=== PATIENT | male | born 1945 | race Caucasian/White ===

== ENCOUNTER 2020-07-30 10:00 | Outpatient (RCR) | payer MEDICARE, OTHER, SELFPAY | END 2020-07-30 13:28 | disposition other institution (70) | LOC: HO.OT 10:00 | PROVIDERS: PCP Internal Medicine; Visit Provider Internal Medicine | DX: I89.0 Lymphedema, not elsewhere classified (principal) | CPT/HCPCS: 97110; 97140; 97167 ==

== ENCOUNTER 2020-07-31 10:00 | Outpatient (RCR) | payer MEDICARE, OTHER, SELFPAY | END 2020-08-22 09:44 | disposition other institution (70) | LOC: HO.PT 10:00 | PROVIDERS: PCP Internal Medicine; Visit Provider Internal Medicine | DX: R53.1 Weakness (principal); M79.606 Pain in leg, unspecified | CPT/HCPCS: 97110; 97162; 97530 ==

== ENCOUNTER 2021-06-08 06:53 | Inpatient (IN) | payer MEDICARE, OTHER, SELFPAY ==
[2021-06-08] VITALS (13 sets, daily range): BP systolic 121–188; BP diastolic 66–99; PULSE 76–148; RESP 18–28; TEMP 36.9–39.7; O2SAT 91–98; BMI 29.5
--- NOTE | 2021-06-08 | ECG_ITS ---
Test Reason : TACHYCARDIA Blood Pressure : / mmHG Vent. Rate : 152 BPM Atrial Rate : 304 BPM P-R Int : 000 ms QRS Dur : 098 ms QT Int : 316 ms P-R-T Axes : 000 -25 015 degrees QTc Int : 502 ms Supraventricular tachycardia Minimal voltage criteria for LVH, may be normal variant ( John product ) Anteroseptal infarct (cited on or before 08-JUN-2021) Abnormal ECG When compared with ECG of 06/08/21 10;07 Supraventricular tachycardia present Vent. rate has increased BY 51 BPM Referred By: Angela Moura Electronically Signed By:Brad Mims
--- NOTE | ~2021-06-08 | CT_ITS ---
EXAMINATION: CT ANGIOGRAM OF THE CHEST WITH AND WITHOUT CONTRAST (CT PULMONARY ANGIOGRAM FOR PE) CLINICAL INFORMATION: Reason for Exam r/o PE pain and fever COMPARISON: Previous chest CTA September 2016 and chest x-ray most recent from earlier the same day TECHNIQUE: Prior to contrast administration, noncontrast localization images were obtained. Subsequently, multidetector volumetric imaging was performed from the thoracic inlet to below the diaphragms following the administration of 100 mL Omnipaque 350 intravenous contrast. No contrast reaction reported Sagittal, coronal, and MIP oblique sagittal reformatted images were obtained on the CT workstation, uploaded to PACS, and reviewed. This CT examination was performed using dose optimization techniques as appropriate, variously including the following: *Automated exposure control *Adjustment of mA and/or kV according to patient size (this includes techniques or standardized protocols for targeted exams where dose is matched to indication/reason for exam; i.e. extremities or head) *Use of iterative reconstruction technique Total exam dose-length product 620 mGy-cm FINDINGS: QUALITY OF STUDY/CONTRAST BOLUS: Satisfactory. PULMONARY ARTERIES: No central or segmental pulmonary emboli. THORACIC AORTA: The ascending thoracic aorta is dilated measuring 0.5 cm. The aortic arch and descending thoracic aorta are normal in caliber. LUNG: There is airspace disease in the left lower lobe suggestive of pneumonia. There is atelectasis or small pneumonia at the base of the the right lower lobe as well PLEURA: No pleural effusion or pneumothorax. MEDIASTINUM: Normal heart size. No pericardial effusion. There are small mediastinal lymph nodes. No enlarged lymph nodes are seen. No evidence of septal bowing or right heart strain. CHEST WALL/AXILLA: No axillary or internal mammary lymphadenopathy. OSSEOUS STRUCTURES: No acute or suspicious osseous abnormality. Degenerative changes. UPPER ABDOMEN: There are several low-attenuation liver lesions. These are difficult to characterize due to timing of contrast. The largest measures 1 cm high in the liver near the hepatic venous confluence and in the posterior segment of the right lobe of the liver. These appear similar to March 2018 CT scan. There is abnormal contour to the lateral mid to lower left kidney for example coronal reconstructed image 43 worrisome for a mass. There are surgical clips adjacent to the upper pole of the left kidney. There is low-attenuation seen in the most inferior 4 visualized portion of the right kidney difficult to characterize. There is diverticulosis of the colon. No reflux of contrast into the hepatic veins to suggest elevated right heart pressures. CT/CT angio chest PE protocol IMPRESSION: No evidence of pulmonary embolism. Left lower lobe pneumonia and atelectasis or small pneumonia in the right lower lobe as well. Dilated ascending thoracic aorta measuring 4.5 cm. Coronary artery calcification. Question left renal mass. VTE: negative
--- NOTE | ~2021-06-08 | XR_ITS ---
EXAMINATION: XR CHEST CLINICAL INFORMATION: Weakness, SOB. COMPARISON: Chest 11/08/2018 TECHNIQUE: Frontal view of the chest was obtained. FINDINGS: The lungs are well-expanded and clear. The heart size is enlarged. Pulmonary vascularity is normal. No gross bony abnormality seen. XR/XR chest 1V IMPRESSION: Unremarkable chest exam.
--- NOTE | ~2021-06-08 | CT_ITS ---
EXAMINATION: CT ABDOMEN AND PELVIS WITH CONTRAST CLINICAL INFORMATION: Abdominal pain and fever. COMPARISON: CT brain 04/23/2018. TECHNIQUE: Multidetector volumetric images were obtained from the superior aspect of the liver through the pubic symphysis following administration 85 mL of Omnipaque 350 intravenous contrast. Sagittal and coronal reformatted images were obtained on the technologist's workstation. Oral contrast: No This CT examination was performed using dose optimization techniques as appropriate, variously including the following: *Automated exposure control *Adjustment of mA and/or kV according to patient size (this includes techniques or standardized protocols for targeted exams where dose is matched to indication/reason for exam; i.e. extremities or head) *Use of iterative reconstruction technique DLP: 1531 mGy-cm FINDINGS: LUNG BASES: There is patchy opacity in both dependent lower lobes basilar segments likely combination of infiltrate/atelectasis. Heart size enlarged with coronary artery calcifications. No pericardial or pleural effusion seen. LIVER, GALLBLADDER, AND BILIARY TREE: The liver is normal in size, shape, and attenuation. There are multiple hypodense liver lesions suggestive of small cysts. No intrahepatic ductal dilatation seen. The gallbladder is distended with dependent radiopaque gallstones. No wall thickening seen. No pericholecystic fluid collection. PANCREAS: Unremarkable. SPLEEN: Unremarkable. ADRENAL GLANDS: The right adrenal gland is slightly atrophic. The left adrenal gland is normal. KIDNEYS AND URETERS: The kidneys are normal in size, shape, and attenuation. No hydronephrosis, hydroureter, or calculi seen. No perinephric stranding. There are bilateral renal cysts. There is a 1.7 cm hypoechoic dense lesion in the midpole left kidney measuring 27 Hounsfield units likely complex cyst. BLADDER: Unremarkable. GASTROINTESTINAL TRACT: There is scattered diverticuli, fluid and gas seen throughout the colon without any colonic distention. No mural thickening or pericolic fat stranding seen. There is air-fluid levels within multiple small bowel loops without distention. No mural thickening seen. No free air or free fluid. Appendix is normal caliber. ABDOMINAL WALL: There is abdominal wall hernia repair with mesh in in the mid abdomen. LYMPH NODES: Normal. VASCULAR: Bilateral ischemic changes of abdominal aorta without aneurysmal dilatation. PELVIC VISCERA: The prostate gland is moderately enlarged extending the base of bladder. OSSEOUS STRUCTURES: There are degenerative disc changes with vacuum disc phenomena L5-S1 and L1-L2 disc levels. No aggressive lytic or sclerotic process seen. CT/CT abdomen pelvis w con IMPRESSION: No acute intra-abdominal process seen. Cholelithiasis without wall thickening. Colonic diverticulosis without diverticulitis. Nonspecific small bowel air-fluid levels without distention in midabdomen. There is an midabdomen abdominal wall hernia repair with mesh in place. Moderate prostate enlargement extending to the base of the bladder. Bilateral renal cysts with a complex cyst midpole left kidney. Bilateral basilar atelectasis and/or infiltrate. Fleischner guidelines were followed.
--- NOTE | 2021-06-08 07:05 | ED_ITS ---
HPI - Nausea/Vomiting/Diarrhea General Chief complaint: Nausea/Vomiting/Diarrhea Stated complaint: DIARRHEA Time Seen by Provider: 06/08/21 07:02 Source: patient and EMS Mode of arrival: EMS Limitations: no limitations History of Present Illness HPI Narrative: Patient comes emergency room complaining of 3 days of profuse watery diarrhea. Patient states that he has had multiple ?accidents? where he cannot reach the bathroom. Patient denies abdominal pain, no nausea or vomiting. Patient has been trying to keep up with fluids, but states he is having more diarrhea and is unable to keep up with fluids. Related Data Allergies Allergy/AdvReac Type Severity Reaction Status Date / Time No Known Allergies Allergy Unverified 01/16/20 14:38 [No Known Allergies*] Review of Systems Review of Systems: Constitutional : No Weight loss, No Fever, No Chills, No Night Sweats, No Fatigue, No Malaise ENT/Mouth : No Hearing loss, No Ear Pain, No Nasal Congestion, No Sinus Pain, No Hoarseness, No sore throat, No Rhinorrhea, No Swallowing Difficulty Eyes: No Eye Pain, No Swelling, No Redness, No Foreign Body, No Discharge, No Vision Changes Cardiovascular : No Chest Pain, No SOB, No Dyspnea on Exertion, No Orthopnea, No Edema, No Palpitations Respiratory : No Cough, No Sputum, No Wheezing, No Smoke Exposure, No Dyspnea Gastrointestinal : No Nausea, No Vomiting, complaining profuse watery Diarrhea, No Constipation, No abdominal Pain, No Hematochezia, No Melena Genitourinary : no irregular bleeding, No Dysuria, No Urinary Frequency, No Hematuria, No Urinary Incontinence, No Urgency, No Flank Pain, No Urinary Flow Changes, No Hesitancy Musculoskeletal : No joint pain, No Myalgias, No Joint Swelling Skin : No Skin Lesions, No rash Neuro : No Weakness, No Numbness, No Paresthesias, No Loss of Consciousness, No Dizziness, No Headache Psych : No Anxiety/Panic, No Depression, No SI/HI/AH/VH, No Social Issues, Heme/Lymph: No Bruising, No Bleeding,No Lymphadenopathy Endocrine : No Polyuria, No Polydipsia, No Temperature Intolerance PMFSH Past Medical History Medical History (Updated 06/08/21 @ 15:34 by Angela Moura MD) Anxiety Depression Diverticulitis Hypertension Renal cell carcinoma Surgical History (Updated 06/08/21 @ 07:09 by Angela Moura MD) History of colectomy S/P femoral-femoral bypass surgery Social History Social History Alcohol intake: never Patient Tobacco Use Status: Never used Tobacco Use of substances other than those prescribed or required for medical reasons: No Advance Directives: Yes Advance Directives Information Provided: No Advance Directives on File: No Physical Exam Vital Signs: Vital Signs: Last Vital Signs Temp 100.9 F H 06/08/21 12:51 Pulse 88 06/08/21 13:54 Resp 20 06/08/21 13:54 BP 136/71 06/08/21 13:54 Pulse Ox 98 06/08/21 13:54 BMI result Body Mass Index 29.5 Course Course Course Narrative: Patient's lactic acid is 2.4. At this time, the elevated lactic acid is likely secondary to dehydration rather than sepsis. This time, sepsis is not suspected. 11:30 patient has a rectal temperature of 102.4 degrees. Time, urinalysis is pending, CT scan is pending, x-ray report pending. No clear source of infection identified. Until now, seems that the patient likely has viral gastroenteritis. Patient's heart rate went up to 180. Patient has history of atrial flutter. Patient states that at home he takes Cardizem and is on Eliquis. Patient was given in the emergency room 1 dose of 10 mg Cardizem, heart rate decreased to 140. Patient getting a 2nd dose of Cardizem Patient's blood pressure remains between 140 and 150 systolic. Heart rate 97. Patient was given 2.5 L IV fluids based on ideal weight of 77 kg. Patient is empirically being treated with Levaquin and Flagyl. still, viral process seems to be the etiology. Chest x-ray is unremarkable, urine pending, CT scan pending (11:48) CTA negative for PE. CT scan of the chest shows possible bilateral infiltrates. However, patient has no respiratory symptoms. COVID negative. Etiology likely viral gastroenteritis. Patient continues having copious diarrhea At this time, 15:33, patient's blood pressure 140/66, heart rate 74 MDM - Nausea/Vomiting/Diarrhea Lab Data Result diagrams: 06/08/21 08:20 06/08/21 08:11 Labs: Lab Results 06/08/21 06/08/21 06/08/21 Range/Units 07:38 08:11 08:11 WBC (4.8-10.8) X10*3/uL RBC (4.60-5.80) X10*6/uL Hgb (14.0-18.0) g/dl Hct (42.0-52.0) % MCV (80.0-98.0) fL MCH (27.0-33.0) pg MCHC (31.0-36.0) g/dl RDW (11.0-16.0) % Plt Count (160-400) X10*3/uL MPV Immature Gran % (Auto) (0.0-0.4) % Neut % (Auto) (45-73) % Lymph % (Auto) (20-40) % [place] % (Auto) (2-11) % Eos % (Auto) (0-4) % Baso % (Auto) (0-2) % Lymph # (Auto) (1.2-4.9) X10*3/uL [place] # (Auto) (0.1-1.2) X10*3/uL Eos # (Auto) (0.0-0.4) X10*3/uL Baso # (Auto) (0.0-0.2) X10*3/uL Abs Immat Gran (auto) (0.00-0.03) X10*3/uL Absolute Neuts (auto) (2.0-8.3) x10*3/uL Absolute Nucleated RBC (0.0-0.012) X10*3/uL Nucleated RBC % (auto) (0.0-0.2) /100WBC Smear Tech's Comments D-Dimer High Sensitivty NG/ML Sodium 142 (135-145) mmol/L Potassium 4.4 (3.3-5.1) mmol/L Chloride 110 H (96-108) mmol/L Carbon Dioxide 21 L (22-29) mmol/L Anion Gap 15 (12-20) BUN 23 H (9-16) mg/dL Creatinine 1.32 (0.5-1.4) mg/dL Estim Creat Clear Calc 61.5 Estimated GFR 53 Random Glucose 82 (60-115) mg/dL Lactic Acid (0.5-2.0) mmol/L Lactic Acid F/U @ 2Hr (0.5-2.0) mmol/L Lactic Acid F/U @ 4Hr (0.5-2.0) mmol/L Calcium 8.7 (8.4-10.2) mg/dL Total Bilirubin 0.5 (0.0-1.0) mg/dL Direct Bilirubin 0.2 (0.0-0.5) mg/dL AST 53 H (5-37) U/L ALT 45 H (0-40) U/L Alkaline Phosphatase 100 (39-117) U/L B-Natriuretic Peptide 228 H (<100) pg/mL Total Protein 6.7 (6.5-8.0) g/dL Albumin 3.8 (3.5-5.0) g/dL Lipase 7 L (8-78) U/L Urine Color Urine Appearance Urine pH (5.0-8.0) Ur Specific [place] (1.005-1.025) Urine Protein (NEG-TRACE) MG/DL Urine Glucose (UA) (NEG) MG/DL Urine Ketones (NEG) MG/DL Urine Blood (NEG) Urine Nitrite (NEG) Ur Leukocyte Esterase (NEG) Urine RBC (0) /HPF Urine WBC (0-4) /HPF Ur Squamous Epith Cells /LPF Urine Bacteria /LPF Granular Casts /LPF Urine Mucus /LPF COVID-19 (YUSEF) Negative (Negative) COVID-19 Clin Com See Note 06/08/21 06/08/21 06/08/21 Range/Units 08:20 08:22 10:41 WBC 10.8 (4.8-10.8) X10*3/uL RBC 5.07 (4.60-5.80) X10*6/uL Hgb 15.1 (14.0-18.0) g/dl Hct 47.9 (42.0-52.0) % MCV 94.5 (80.0-98.0) fL MCH 29.8 (27.0-33.0) pg MCHC 31.5 (31.0-36.0) g/dl RDW 17.8 H (11.0-16.0) % Plt Count 220 (160-400) X10*3/uL MPV Not Reportable Immature Gran % (Auto) 0.6 H (0.0-0.4) % Neut % (Auto) 84.7 H (45-73) % Lymph % (Auto) 7.1 L (20-40) % [place] % (Auto) 7.1 (2-11) % Eos % (Auto) 0.3 (0-4) % Baso % (Auto) 0.2 (0-2) % Lymph # (Auto) 0.8 L (1.2-4.9) X10*3/uL [place] # (Auto) 0.8 (0.1-1.2) X10*3/uL Eos # (Auto) 0.0 (0.0-0.4) X10*3/uL Baso # (Auto) 0.0 (0.0-0.2) X10*3/uL Abs Immat Gran (auto) 0.06 H (0.00-0.03) X10*3/uL Absolute Neuts (auto) 9.1 H (2.0-8.3) x10*3/uL Absolute Nucleated RBC 0.000 (0.0-0.012) X10*3/uL Nucleated RBC % (auto) 0.0 (0.0-0.2) /100WBC Smear Tech's Comments VERIFIED D-Dimer High Sensitivty 601 NG/ML Sodium (135-145) mmol/L Potassium (3.3-5.1) mmol/L Chloride (96-108) mmol/L Carbon Dioxide (22-29) mmol/L Anion Gap (12-20) BUN (9-16) mg/dL Creatinine (0.5-1.4) mg/dL Estim Creat Clear Calc Estimated GFR Random Glucose (60-115) mg/dL Lactic Acid 2.4 H* (0.5-2.0) mmol/L Lactic Acid F/U @ 2Hr (0.5-2.0) mmol/L Lactic Acid F/U @ 4Hr (0.5-2.0) mmol/L Calcium (8.4-10.2) mg/dL Total Bilirubin (0.0-1.0) mg/dL Direct Bilirubin (0.0-0.5) mg/dL AST (5-37) U/L ALT (0-40) U/L Alkaline Phosphatase (39-117) U/L B-Natriuretic Peptide (<100) pg/mL Total Protein (6.5-8.0) g/dL Albumin (3.5-5.0) g/dL Lipase (8-78) U/L Urine Color Urine Appearance Urine pH (5.0-8.0) Ur Specific [place] (1.005-1.025) Urine Protein (NEG-TRACE) MG/DL Urine Glucose (UA) (NEG) MG/DL Urine Ketones (NEG) MG/DL Urine Blood (NEG) Urine Nitrite (NEG) Ur Leukocyte Esterase (NEG) Urine RBC (0) /HPF Urine WBC (0-4) /HPF Ur Squamous Epith Cells /LPF Urine Bacteria /LPF Granular Casts /LPF Urine Mucus /LPF COVID-19 (YUSEF) (Negative) COVID-19 Clin Com 06/08/21 06/08/21 06/08/21 Range/Units 10:41 11:33 12:57 WBC (4.8-10.8) X10*3/uL RBC (4.60-5.80) X10*6/uL Hgb (14.0-18.0) g/dl Hct (42.0-52.0) % MCV (80.0-98.0) fL MCH (27.0-33.0) pg MCHC (31.0-36.0) g/dl RDW (11.0-16.0) % Plt Count (160-400) X10*3/uL MPV Immature Gran % (Auto) (0.0-0.4) % Neut % (Auto) (45-73) % Lymph % (Auto) (20-40) % [place] % (Auto) (2-11) % Eos % (Auto) (0-4) % Baso % (Auto) (0-2) % Lymph # (Auto) (1.2-4.9) X10*3/uL [place] # (Auto) (0.1-1.2) X10*3/uL Eos # (Auto) (0.0-0.4) X10*3/uL Baso # (Auto) (0.0-0.2) X10*3/uL Abs Immat Gran (auto) (0.00-0.03) X10*3/uL Absolute Neuts (auto) (2.0-8.3) x10*3/uL Absolute Nucleated RBC (0.0-0.012) X10*3/uL Nucleated RBC % (auto) (0.0-0.2) /100WBC Smear Tech's Comments D-Dimer High Sensitivty NG/ML Sodium (135-145) mmol/L Potassium (3.3-5.1) mmol/L Chloride (96-108) mmol/L Carbon Dioxide (22-29) mmol/L Anion Gap (12-20) BUN (9-16) mg/dL Creatinine (0.5-1.4) mg/dL Estim Creat Clear Calc Estimated GFR Random Glucose (60-115) mg/dL Lactic Acid (0.5-2.0) mmol/L Lactic Acid F/U @ 2Hr 2.8 H* (0.5-2.0) mmol/L Lactic Acid F/U @ 4Hr 0.8 (0.5-2.0) mmol/L Calcium (8.4-10.2) mg/dL Total Bilirubin (0.0-1.0) mg/dL Direct Bilirubin (0.0-0.5) mg/dL AST (5-37) U/L ALT (0-40) U/L Alkaline Phosphatase (39-117) U/L B-Natriuretic Peptide (<100) pg/mL Total Protein (6.5-8.0) g/dL Albumin (3.5-5.0) g/dL Lipase (8-78) U/L Urine Color YELLOW Urine Appearance CLEAR Urine pH 5.5 (5.0-8.0) Ur Specific [place] 1.025 (1.005-1.025) Urine Protein 1+ H (NEG-TRACE) MG/DL Urine Glucose (UA) NEG (NEG) MG/DL Urine Ketones NEG (NEG) MG/DL Urine Blood NEG (NEG) Urine Nitrite NEG (NEG) Ur Leukocyte Esterase NEG (NEG) Urine RBC 0 (0) /HPF Urine WBC 0-2 (0-4) /HPF Ur Squamous Epith Cells NONE /LPF Urine Bacteria 1+ /LPF Granular Casts 0-2 /LPF Urine Mucus 1+ /LPF COVID-19 (YUSEF) (Negative) COVID-19 Clin Com Critical Care Time Critical Care Time Critical Care Time: Yes Total Critical Care Time: 50 Attestation: 50 minutes were spent in direct patient care Discharge Plan Discharge Clinical Impression: Gastroenteritis, Atrial flutter Patient Disposition: Admitted As Inpatient
[2021-06-08] MEDS: Loperamide HCl 2 MG CAPSULE 4 MG PO (07:18)
[2021-06-08] MEDS: 0.9 % Sodium Chloride 2,000 ML 999 ML IVCONT (07:42)
[2021-06-08 07:58] LABS: COVID-19 Test Negative (Negative); IDNOW Serial# 9DD0AD1C
[2021-06-08 08:27] LABS: Basophils Percent Auto 0.2 % (0-2); Eosinophils Percent Auto 0.3 % (0-4); Hematocrit 47.9 % (42.0-52.0); Hemoglobin 15.1 g/dl (14.0-18.0); Imm Gran Abs Auto 0.06 X10*3/uL (0.00-0.03); Imm Gran Pct Auto 0.6 % (0.0-0.4); Lymphocytes Absolute Auto 0.8 X10*3/uL (1.2-4.9); Lymphocytes Percent Auto 7.1 % (20-40); MANUAL DIFF FLAG SCAN; Mean Corpuscular HGB Conc 31.5 g/dl (31.0-36.0); Mean Corpuscular Hemoglobin 29.8 pg (27.0-33.0); Mean Corpuscular Volume 94.5 fL (80.0-98.0); Monocytes Absolute Auto 0.8 X10*3/uL (0.1-1.2); Monocytes Percent Auto 7.1 % (2-11); Neutrophils Absolute Auto 9.1 x10*3/uL (2.0-8.3); Neutrophils Percent Auto 84.7 % (45-73); PLT CLUMP 1; Red Blood Count 5.07 X10*6/uL (4.60-5.80); Red Cell Distribution Width 17.8 % (11.0-16.0); SCAN SMEAR FLAG 1
[2021-06-08 08:40] LABS: Alanine Aminotransferase 45 U/L (0-40); Albumin Level 3.8 g/dL (3.5-5.0); Alkaline Phosphatase 100 U/L (39-117); Anion Gap 15 (12-20); Aspartate Amino Transferase 53 U/L (5-37); Bilirubin Direct 0.2 mg/dL (0.0-0.5); Bilirubin Total 0.5 mg/dL (0.0-1.0); Blood Urea Nitrogen 23 mg/dL (9-16); Calcium 8.7 mg/dL (8.4-10.2); Carbon Dioxide 21 mmol/L (22-29); Chloride 110 mmol/L (96-108); Creatinine Clr Calc Pharmacy 61.5; Estimated Glomerular Filt Rate 53; Glucose Random 82 mg/dL (60-115); Lipase 7 U/L (8-78); Potassium 4.4 mmol/L (3.3-5.1); Sodium 142 mmol/L (135-145); Total Protein 6.7 g/dL (6.5-8.0)
[2021-06-08 08:47] LABS: Lactic Acid 2.4 mmol/L (0.5-2.0)
[2021-06-08 08:51] LABS: Platelet Count 220 X10*3/uL (160-400); SLIDE REVIEW VERIFIED; White Blood Count 10.8 X10*3/uL (4.8-10.8)
[2021-06-08] MEDS: Acetaminophen 325 MG TABLET 650 MG PO (10:03)
--- NOTE | 2021-06-08 10:13 | PC.NURSE ---
patient spiked fever, shaking, had some episodes of rapid HR at 150's, repeat ekg done by tech. patient diaphoretic, all findings changed from baseline when patient arrived to ED. PO Tylenol given. IV fluids continue to infuse. this RN has called phlebotomy x 2 for drawing of blood cultures, patient difficult stick. awaiting further orders from md, ? CT of patients abdomen. patient denies pain, abdomen firm to touch and round, patient tells RN that is normal for him.
[2021-06-08] MEDS: 0.9 % Sodium Chloride 1,000 ML 999 ML IVCONT (10:25)
[2021-06-08 10:27] LABS: Reflex Lactate? Lactic Acid Added
--- NOTE | 2021-06-08 10:46 | ECG_ITS ---
Test Reason : TACHYCARDIA Blood Pressure : / mmHG Vent. Rate : 100 BPM Atrial Rate : 100 BPM P-R Int : 184 ms QRS Dur : 070 ms QT Int : 348 ms P-R-T Axes : 095 004 -08 degrees QTc Int : 448 ms Sinus rhythm with Premature atrial complexes Anteroseptal infarct , age undetermined Abnormal ECG When compared with ECG of 08-NOV-2018 11:25, Premature atrial complexes are now Present Anteroseptal infarct is now Present Referred By: Angela Moura Electronically Signed By:Brad Mims
[2021-06-08 10:55] LABS: D Dimer High Sensitivity 601 NG/ML
--- NOTE | 2021-06-08 10:58 | PC.NURSE ---
spoke with regarding Cardizem order, originally order for20 mg iv push as patient HR was 150s. HR now down low 100's. BP stable. told this RN to given 10 mg iv push instead.
[2021-06-08 10:59] LABS: ~Lactic Acid-LAB USE ONLY 2.8 mmol/L (0.5-2.0)
[2021-06-08] MEDS: dilTIAZem HCL 50 MG/10 ML VIAL 20 MG IVPUSH (11:00)
[2021-06-08 11:12] LABS: B Type Natriuretic Peptide 228 pg/mL (<100)
[2021-06-08] MEDS: Ibuprofen 600 MG TABLET PO (11:21)
[2021-06-08 11:47] LABS: Appearance Urine CLEAR; Color Urine YELLOW; Glucose Urine UA NEG (NEG); Leukocyte Esterase Urine NEG (NEG); Nitrite Urine NEG (NEG); PH 5.5 (5.0-8.0); Specific Gravity - Urine 1.025 (1.005-1.025); UACC Culture Trigger NO; Urine Blood NEG (NEG); Urine Ketones NEG (NEG); Urine Protein 1+ MG/DL (NEG-TRACE)
[2021-06-08 12:22] LABS: Bacteria Urine 1+ /LPF; Granular Casts Urine 0-2 /LPF; Mucus Urine 1+ /LPF; RBC Urine 0 /HPF (0); WBC Urine 0-2 /HPF (0-4)
[2021-06-08] MEDS: levoFLOXacin/D5W 500 MG/100 ML PIGGYBACK 100 MG IV (12:24)
[2021-06-08] MEDS: 0.9 % Sodium Chloride 500 ML 999 ML IVCONT (12:24)
[2021-06-08 12:46] LABS: Reflex Lactate? 2 Y
[2021-06-08] MEDS: dilTIAZem HCL 50 MG/10 ML VIAL 10 MG IVPUSH (12:59)
[2021-06-08 13:17] LABS: ~Lactic Acid-LAB USE ONLY 0.8 mmol/L (0.5-2.0)
[2021-06-08] MEDS: metroNIDAZOLE/NS 500 MG/100 ML PIGGYBACK 100 MG IV (13:53)
--- NOTE | 2021-06-08 15:31 | P.HPHOSP_ITS ---
History of Present Illness Date of Service: 06/08/21 <Tania Bernabe NP - Last Filed: 06/08/21 18:54> Chief Complaint: Diarrhea <Tania Bernabe NP - Last Filed: 06/08/21 18:54> 76-year-old man presenting to the ER with complaints of diarrhea/watery stools over the last 3-4 days. He denies any recent travel, improperly cooked food, fever, chills, nausea, vomiting, blood in the stool. He did report that his appetite has been very poor over the last several days. He does have a history of diverticulitis in the past however abdominal CT showed no acute intra-abdominal process. His liver enzymes are mildly elevated with AST of 53 and ALT of 45, BNP 228, lipase 7. He was not noted to have any fever, blood pressure stable. He was given Levaquin Flagyl IV fluids in the ER. He will be admitted for further management and treatment of acute diarrhea. <Tania Bernabe NP - Last Filed: 06/08/21 18:54> Review of Systems Review of Systems: Denies any recent fever chills or decrease in appetite respiratory denies any shortness of breath coverage production cardiovascular denies chest pain gastrointestinal see HPI genitourinary denies any dysuria frequency or hematuria musculoskeletal denies any joint pain or swelling neuropsych denies any weakness or seizures all other systems reviewed are negative <Tania Bernabe NP - Last Filed: 06/08/21 18:54> [facility] Medical History: Medical History (Updated 06/08/21 @ 15:34 by Angela Moura MD) Anxiety Depression Diverticulitis Hypertension Renal cell carcinoma <Tania Bernabe NP - Last Filed: 06/08/21 18:54> Pertinent family history: denies cardiac disease <Tania Bernabe NP - Last Filed: 06/08/21 18:54> Surgical History: Surgical History (Updated 06/08/21 @ 07:09 by Angela Moura MD) History of colectomy S/P femoral-femoral bypass surgery <Tania Bernabe NP - Last Filed: 06/08/21 18:54> Social History: Social History Household Members: Spouse Housing: House Do you presently have visiting nurse or other home services: No Alcohol intake: never Patient Tobacco Use Status: Never used Tobacco Use of substances other than those prescribed or required for medical reasons: No Currently Displaying Signs/Symptoms of Drug Intoxication Withdrawal: No Have you been hit, kicked, punched, or otherwise hurt by someone within the past year? If so, by whom?: No Do you feel safe in your current relationship?: Yes Is there a partner from a previous relationship who is making you feel unsafe now?: No Are you made to feel afraid or neglected: No Advance Directives: Yes Advance Directives Information Provided: No Advance Directives on File: No Advance Directives Date on File: 06/09/21 Do you have thoughts of harming others: None Recently lost weight without trying: No service: Yes Current occupational status: retired <Tania Bernabe NP - Last Filed: 06/08/21 18:54> Meds Allergies/Adverse reactions: Allergies Allergy/AdvReac Type Severity Reaction Status Date / Time No Known Allergies Allergy Unverified 01/16/20 14:38 [No Known Allergies*] <Tania Bernabe NP - Last Filed: 06/08/21 18:54> Home medications: Home Medications Medication Instructions Recorded Confirmed Last Taken Type apixaban 5 mg tablet (Eliquis) 1 tab PO BID 06/08/21 06/08/21 06/07/21 History atorvastatin 80 mg tablet 1 tab PO DAILY 06/08/21 06/08/21 06/07/21 History cilostazol 50 mg tablet 1 tab PO BID 06/08/21 06/08/21 06/07/21 History clonazepam 1 mg tablet 1 tab PO BID PRN 06/08/21 06/08/21 06/07/21 History dextroamphetamine-amphetamine 5 mg 1 tab PO DAILY 06/08/21 06/08/21 06/07/21 History tablet furosemide 40 mg tablet 1 tab PO DAILY 06/08/21 06/08/21 06/07/21 History metoprolol tartrate 25 mg tablet 1 tab PO DAILY 06/08/21 06/08/21 06/07/21 History sertraline 50 mg tablet 1 tab PO DAILY 06/08/21 06/08/21 06/07/21 History valacyclovir 1 gram tablet 1 tab PO BID 06/08/21 06/08/21 06/07/21 History <Tania Bernabe NP - Last Filed: 06/08/21 18:54> Physical Exam Vital Signs and Narrative: Vital Signs: Last Vital Signs Temp 100.9 F H 06/08/21 12:51 Pulse 88 06/08/21 13:54 Resp 20 06/08/21 13:54 BP 136/71 06/08/21 13:54 Pulse Ox 98 06/08/21 13:54 BMI result Body Mass Index 29.5 <Tania Bernabe NP - Last Filed: 06/08/21 18:54> Appearing in no acute distress head is normocephalic atraumatic eyes pupils are PERRLA sclera is anicteric mouth throat mucous membranes are intact and moist neck is supple no lymphadenopathy, no JVD noted lung sounds are clear to auscultation heart regular rate rhythm, clear S1, S2 positive bowel sounds, abdomen is soft, nontender neuro patient is alert x3, no focal deficits <Tania Bernabe NP - Last Filed: 06/08/21 18:54> Results Labs CBC and Chem 7: : 06/09/21 06:37 06/09/21 06:37 <Tania Bernabe NP - Last Filed: 06/08/21 18:54> Labs: Laboratory Results - last 24 hr 06/08/21 06/08/21 06/08/21 07:38 08:11 08:11 MCV MCH MCHC RDW Plt Count MPV Immature Gran % (Auto) Neut % (Auto) Lymph % (Auto) [place] % (Auto) Eos % (Auto) Baso % (Auto) Lymph # (Auto) [place] # (Auto) Eos # (Auto) Baso # (Auto) Abs Immat Gran (auto) Absolute Neuts (auto) Absolute Nucleated RBC Nucleated RBC % (auto) Smear Tech's Comments D-Dimer High Sensitivty Anion Gap 15 Estim Creat Clear Calc 61.5 Estimated GFR 53 Random Glucose 82 Lactic Acid Lactic Acid F/U @ 2Hr Lactic Acid F/U @ 4Hr Calcium 8.7 Total Bilirubin 0.5 Direct Bilirubin 0.2 AST 53 H ALT 45 H Alkaline Phosphatase 100 B-Natriuretic Peptide 228 H Total Protein 6.7 Albumin 3.8 Lipase 7 L Urine Color Urine Appearance Urine pH Ur Specific [place] Urine Protein Urine Glucose (UA) Urine Ketones Urine Blood Urine Nitrite Ur Leukocyte Esterase Urine RBC Urine WBC Ur Squamous Epith Cells Urine Bacteria Granular Casts Urine Mucus COVID-19 (YUSEF) Negative COVID-19 Clin Com See Note 06/08/21 06/08/21 06/08/21 08:20 08:22 10:41 MCV 94.5 MCH 29.8 MCHC 31.5 RDW 17.8 H Plt Count 220 MPV Not Reportable Immature Gran % (Auto) 0.6 H Neut % (Auto) 84.7 H Lymph % (Auto) 7.1 L [place] % (Auto) 7.1 Eos % (Auto) 0.3 Baso % (Auto) 0.2 Lymph # (Auto) 0.8 L [place] # (Auto) 0.8 Eos # (Auto) 0.0 Baso # (Auto) 0.0 Abs Immat Gran (auto) 0.06 H Absolute Neuts (auto) 9.1 H Absolute Nucleated RBC 0.000 Nucleated RBC % (auto) 0.0 Smear Tech's Comments VERIFIED D-Dimer High Sensitivty 601 Anion Gap Estim Creat Clear Calc Estimated GFR Random Glucose Lactic Acid 2.4 H* Lactic Acid F/U @ 2Hr Lactic Acid F/U @ 4Hr Calcium Total Bilirubin Direct Bilirubin AST ALT Alkaline Phosphatase B-Natriuretic Peptide Total Protein Albumin Lipase Urine Color Urine Appearance Urine pH Ur Specific [place] Urine Protein Urine Glucose (UA) Urine Ketones Urine Blood Urine Nitrite Ur Leukocyte Esterase Urine RBC Urine WBC Ur Squamous Epith Cells Urine Bacteria Granular Casts Urine Mucus COVID-19 (YUSEF) COVID-19 Clin Com 06/08/21 06/08/21 06/08/21 10:41 11:33 12:57 MCV MCH MCHC RDW Plt Count MPV Immature Gran % (Auto) Neut % (Auto) Lymph % (Auto) [place] % (Auto) Eos % (Auto) Baso % (Auto) Lymph # (Auto) [place] # (Auto) Eos # (Auto) Baso # (Auto) Abs Immat Gran (auto) Absolute Neuts (auto) Absolute Nucleated RBC Nucleated RBC % (auto) Smear Tech's Comments D-Dimer High Sensitivty Anion Gap Estim Creat Clear Calc Estimated GFR Random Glucose Lactic Acid Lactic Acid F/U @ 2Hr 2.8 H* Lactic Acid F/U @ 4Hr 0.8 Calcium Total Bilirubin Direct Bilirubin AST ALT Alkaline Phosphatase B-Natriuretic Peptide Total Protein Albumin Lipase Urine Color YELLOW Urine Appearance CLEAR Urine pH 5.5 Ur Specific [place] 1.025 Urine Protein 1+ H Urine Glucose (UA) NEG Urine Ketones NEG Urine Blood NEG Urine Nitrite NEG Ur Leukocyte Esterase NEG Urine RBC 0 Urine WBC 0-2 Ur Squamous Epith Cells NONE Urine Bacteria 1+ Granular Casts 0-2 Urine Mucus 1+ COVID-19 (YUSEF) COVID-19 Clin Com <Tania Bernabe NP - Last Filed: 06/08/21 18:54> Imaging Radiologist's Impressions: Impressions Chest X-Ray 06/08/21 10:58 IMPRESSION: Unremarkable chest exam. Abdomen/Pelvis CT 06/08/21 12:43 IMPRESSION: No acute intra-abdominal process seen. Cholelithiasis without wall thickening. Colonic diverticulosis without diverticulitis. Nonspecific small bowel air-fluid levels without distention in midabdomen. There is an midabdomen abdominal wall hernia repair with mesh in place. Moderate prostate enlargement extending to the base of the bladder. Bilateral renal cysts with a complex cyst midpole left kidney. Bilateral basilar atelectasis and/or infiltrate. Fleischner guidelines were followed. Chest CTA 06/08/21 12:43 IMPRESSION: No evidence of pulmonary embolism. Left lower lobe pneumonia and atelectasis or small pneumonia in the right lower lobe as well. Dilated ascending thoracic aorta measuring 4.5 cm. Coronary artery calcification. Question left renal mass. VTE: negative <Tania Bernabe NP - Last Filed: 06/08/21 18:54> Assessment and Plan (1) Gastroenteritis: Status: Acute <Tania Bernabe NP - Last Filed: 06/08/21 18:54> (2) Atrial flutter: Status: Acute <Tania Bernabe NP - Last Filed: 06/08/21 18:54> Plan 76-year-old man admitted with possible viral gastroenteritis vs other stool i nfection Severe sepsis secondary to ? viral enteritis vs stool infection with watery stool cdiff, stool wbc and cx pending continue levaquin and flagyl for now GI consult PPI IV fluids clear diet Afib RVR likely secondary to diarrhea now back in SR Continue Eliquis and BB Hypertension. stable Anxiety continue home medications Attending Dr. Brown DVT prophylaxis with Full code <Tania Bernabe NP - Last Filed: 06/08/21 18:54> Quality Stroke Does the patient have a stroke diagnosis?: No <Tania Bernabe NP - Last Filed: 06/08/21 18:54> VTE Prior VTE?: No <Tania Bernabe NP - Last Filed: 06/08/21 18:54> VTE Risk Level:: Medical - moderate - high <Tania Bernabe NP - Last Filed: 06/08/21 18:54> VTE Device Contraindication: Treatment Not Indicated <Tania Bernabe NP - Last Filed: 06/08/21 18:54> VTE Drug Contraindication: N/A - Med Ordered <Tania Bernabe NP - Last Filed: 06/08/21 18:54>
[2021-06-08 16:11] LABS: Magnesium 2.1 mg/dL (1.6-2.6)
--- NOTE | 2021-06-08 16:12 | PHA.MEDREC ---
Pharmacy Consult ? Medication Reconciliation Pharmacy has completed the medication reconciliation.
[2021-06-08] MEDS: 0.9 % Sodium Chloride Flush 3 ML SYRINGE IVFLUSH (17:47)
[2021-06-08] MEDS: Omeprazole 20 MG CAPSULE.DR PO (17:48)
[2021-06-08] MEDS: Heparin Sodium,Porcine 5,000 UNIT/ML VIAL 5000 UNIT SUBCUT (17:48)
[2021-06-08] MEDS: Lactated Ringers 1,000 ML 100 ML IVCONT (17:48)
[2021-06-08] MEDS: metroNIDAZOLE 500 MG TABLET PO (20:01)
[2021-06-08] MEDS: Apixaban 5 MG TABLET PO (20:01)
[2021-06-08 20:52] LABS: Leukocytes Stool Qualitative MOD: 3-9/OIF (NEGATIVE)
[2021-06-08 21:17] LABS: CDiff Gene PCR NEGATIVE (Negative)
[2021-06-09] VITALS (7 sets, daily range): BP systolic 131–169; BP diastolic 75–88; PULSE 66–83; RESP 18–20; TEMP 36.4–37.4; O2SAT 93–98
[2021-06-09] MEDS: Lactated Ringers 1,000 ML 100 ML IVCONT ×2 (02:41→14:33)
[2021-06-09] MEDS: Omeprazole 20 MG CAPSULE.DR PO ×2 (05:43→15:49)
[2021-06-09] MEDS: Heparin Sodium,Porcine 5,000 UNIT/ML VIAL 5000 UNIT SUBCUT (05:43)
[2021-06-09] MEDS: metroNIDAZOLE 500 MG TABLET PO ×3 (05:43→20:52)
[2021-06-09 06:46] LABS: MANUAL DIFF FLAG NO
[2021-06-09 06:52] LABS: Basophils Percent Auto 0.4 % (0-2); Eosinophils Absolute Auto 0.1 X10*3/uL (0.0-0.4); Eosinophils Percent Auto 2.1 % (0-4); Hematocrit 40.5 % (42.0-52.0); Hemoglobin 12.6 g/dl (14.0-18.0); Imm Gran Abs Auto 0.01 X10*3/uL (0.00-0.03); Imm Gran Pct Auto 0.2 % (0.0-0.4); Lymphocytes Absolute Auto 0.9 X10*3/uL (1.2-4.9); Lymphocytes Percent Auto 17.7 % (20-40); Mean Corpuscular HGB Conc 31.1 g/dl (31.0-36.0); Mean Corpuscular Volume 93.3 fL (80.0-98.0); Mean Platelet Volume 10.1 fL (9.4-12.4); Monocytes Absolute Auto 0.8 X10*3/uL (0.1-1.2); Monocytes Percent Auto 14.7 % (2-11); Neutrophils Absolute Auto 3.4 x10*3/uL (2.0-8.3); Neutrophils Percent Auto 64.9 % (45-73); Platelet Count 194 X10*3/uL (160-400); Red Blood Count 4.34 X10*6/uL (4.60-5.80); Red Cell Distribution Width 17.6 % (11.0-16.0); White Blood Count 5.2 X10*3/uL (4.8-10.8)
[2021-06-09 07:07] LABS: Anion Gap 10 (12-20); Blood Urea Nitrogen 14 mg/dL (9-16); Calcium 7.9 mg/dL (8.4-10.2); Carbon Dioxide 21 mmol/L (22-29); Chloride 113 mmol/L (96-108); Creatinine Clr Calc Pharmacy 88.2; Estimated Glomerular Filt Rate > 60; Glucose Random 87 mg/dL (60-115); Potassium 3.8 mmol/L (3.3-5.1); Sodium 140 mmol/L (135-145)
[2021-06-09 08:11] LABS: Troponin-I High Sensitivity 34.5 ng/L (<3.5-35.0)
--- NOTE | 2021-06-09 09:17 | P.CNGI_ITS ---
History of Present Illness Data of Consult Service Date: 06/09/21 Requesting physician: Tania Bernabe Primary Care Provider: Yolande Banegas DO HPI Reason for consult: diarrhea 76-year-old man w hx of atrial flutter, renal cancer and PVD who I am asked to see for diarrhea. Patient has c/o diarrhea and loose stools for 3-4 days going 9 times or more a day, associated with poor appetite. Denies abdominal pain. He denies any recent travel, improperly cooked food, fever, chills, nausea, vomiting, blood in the stool last colonoscopy 1.5 yrs ago rodolfo tellez and was nml per his report, also had partial colectomy for ?perf diverticulum CT was negative for acute pathology, pos for diverticulosis, enlarged prostate, cholelithiasis and complex cyst left kidney C diff negative. CBC with borderline anemia, mild lactate elevation. AST of 53 and ALT of 45, BNP 228, lipase 7. He was given Levaquin Flagyl IV fluids and says he feels much better and not had diarrhea today Review of Systems Review of Systems: Constitutional : No Weight loss, No Fever, + Chills ENT/Mouth : No sore throat, No Rhinorrhea Eyes: No Swelling, No Redness Cardiovascular : No Chest Pain, No SOB, No Edema Respiratory : No Cough, No Sputum, No Wheezing Gastrointestinal : see HPI Genitourinary : NO Dysuria, No Urinary Frequency, No Hematuria, No Urgency Musculoskeletal : No joint pain, No Myalgias, No Joint Swelling Skin : No Skin Lesions, No rash Neuro : No Weakness, No Numbness, No Dizziness, No Headache Psych : No Anxiety/Panic, No Depression Heme/Lymph: No Bruising, No Lymphadenopathy Endocrine : No Polyuria, No Polydipsia All other systems reviewed and are negative. [facility] Past Medical History Medical History (Updated 06/08/21 @ 15:34 by Angela Moura MD) Anxiety Depression Diverticulitis Hypertension Renal cell carcinoma Family History Pertinent family history: denies cardiac disease Surgical History Surgical History (Updated 06/08/21 @ 07:09 by nAgela Moura MD) History of colectomy S/P femoral-femoral bypass surgery Social History Social History Household Members: Spouse Housing: House Do you presently have visiting nurse or other home services: No Alcohol intake: never Patient Tobacco Use Status: Never used Tobacco Use of substances other than those prescribed or required for medical reasons: No Currently Displaying Signs/Symptoms of Drug Intoxication Withdrawal: No Have you been hit, kicked, punched, or otherwise hurt by someone within the past year? If so, by whom?: No Do you feel safe in your current relationship?: Yes Is there a partner from a previous relationship who is making you feel unsafe now?: No Are you made to feel afraid or neglected: No Advance Directives: Yes Advance Directives Information Provided: No Advance Directives on File: No Advance Directives Date on File: 06/09/21 Do you have thoughts of harming others: None Recently lost weight without trying: No service: Yes Current occupational status: retired Meds Allergies Allergy/AdvReac Type Severity Reaction Status Date / Time No Known Allergies Allergy Unverified 01/16/20 14:38 [No Known Allergies*] Active Medications: Current Medications Acetaminophen (Acetaminophen 325 Mg Tablet) 650 mg PO Q6H PRN PRN Reason: Pain, Mild (Pain Scale 1-3) Amphetamine/Dextroamphetamine (Amphetamine Mixed Salts 10 Mg Tablet) 5 mg PO DA [place] [facility] Apixaban (Apixaban 5 Mg Tablet) 5 mg PO BID [facility] Last Admin: 06/08/21 20:01 Dose: 5 mg Documented by: Clonazepam (Clonazepam 1 Mg Tablet) 1 mg PO BID PRN PRN Reason: Anxiety Heparin Sodium (Porcine) (Heparin Sodium,Porcine 5,000 Unit/Ml Vial) 5,000 unit SUBCUT Q12H [facility] Last Admin: 06/09/21 05:43 Dose: 5,000 unit Documented by: Lactated Ringer's (Lr) 1,000 mls @ 100 mls/hr IVCONT .Q10H [facility] Last Admin: 06/09/21 02:41 Dose: 100 mls/hr Documented by: Levofloxacin (Levaquin) 500 mg in 100 mls @ 100 mls/hr IV Q24H [facility] Metoprolol Succinate (Metoprolol Succinate Er 25 Mg Tab.Er.24h) 25 mg PO DAILY [facility]; Protocol Metronidazole (Metronidazole 500 Mg Tablet) 500 mg PO Q8H [facility] Last Admin: 06/09/21 05:43 Dose: 500 mg Documented by: Omeprazole (Omeprazole 20 Mg Capsule.) 20 mg PO BID@0630,1630 [facility] Last Admin: 06/09/21 05:43 Dose: 20 mg Documented by: Ondansetron HCl (Ondansetron Hcl 4 Mg/2 Ml Vial) 4 mg IVPUSH Q8H PRN PRN Reason: Nausea and Vomiting Pharmacy Consult (Consult Rx Perform Med Rec) 1 each MISCELLANE ONCE PRN PRN Reason: Consult order Sertraline HCl (Sertraline Hcl 50 Mg Tablet) 50 mg PO DAILY [facility] Sodium Chloride (0.9 % Sodium Chloride Flush 3 Ml Syringe) 3 ml IVFLUSH QSHIFT [facility] Last Admin: 06/09/21 00:48 Dose: Not Given Documented by: Home Medications Medication Instructions Recorded Confirmed Last Taken Type apixaban 5 mg tablet (Eliquis) 1 tab PO BID 06/08/21 06/08/21 06/07/21 History atorvastatin 80 mg tablet 1 tab PO DAILY 06/08/21 06/08/21 06/07/21 History cilostazol 50 mg tablet 1 tab PO BID 06/08/21 06/08/21 06/07/21 History clonazepam 1 mg tablet 1 tab PO BID PRN 06/08/21 06/08/21 06/07/21 History dextroamphetamine-amphetamine 5 mg 1 tab PO DAILY 06/08/21 06/08/21 06/07/21 History tablet furosemide 40 mg tablet 1 tab PO DAILY 06/08/21 06/08/21 06/07/21 History metoprolol tartrate 25 mg tablet 1 tab PO DAILY 06/08/21 06/08/21 06/07/21 History sertraline 50 mg tablet 1 tab PO DAILY 06/08/21 06/08/21 06/07/21 History valacyclovir 1 gram tablet 1 tab PO BID 06/08/21 06/08/21 06/07/21 History Physical Exam Vital Signs: Vital Signs: Last Vital Signs Temp 99.3 F 06/09/21 07:26 Pulse 79 06/09/21 07:26 Resp 20 06/09/21 07:26 BP 160/75 H 06/09/21 07:26 Pulse Ox 97 06/09/21 07:26 BMI result Body Mass Index 29.5 EXAM: GENERAL: The patient is well developed and nontoxic. VITAL SIGNS:see workflow HEENT: Nonicteric sclerae, PERRLA, EOMI. Oropharynx clear. Moist mucous membranes. Conjunctivae appear well perfused. No thyroid mass. CHEST: Chest wall is nontender. HEART: Regular rate and rhythm without murmurs. LUNGS: Clear to auscultation bilaterally. ABDOMEN: Soft, positive bowel sounds, nontender, no organomegaly.no flank tenderness--midline scar noted with incisonal hernia SKIN: No rash, no excessive bruising, petechiae, or purpura. NEUROLOGIC: Cranial nerves II-XII intact without motor/sensory deficit. Extrem: General: Yes normal to inspection Psych: Appearance: grossly normal Results Labs CBC & Chem 7: 06/09/21 06:37 06/09/21 06:37 Labs: Short CBC 06/09/21 Range/Units 06:37 WBC 5.2 (4.8-10.8) X10*3/uL Hgb 12.6 L (14.0-18.0) g/dl Hct 40.5 L (42.0-52.0) % Plt Count 194 (160-400) X10*3/uL BMP 06/09/21 06:37 Sodium 140 Potassium 3.8 Chloride 113 H Carbon Dioxide 21 L BUN 14 Creatinine 0.92 Calcium 7.9 L D Urine 06/08/21 Range/Units 11:33 Urine Color YELLOW Urine Appearance CLEAR Urine pH 5.5 (5.0-8.0) Ur Specific [place] 1.025 (1.005-1.025) Urine Protein 1+ H (NEG-TRACE) MG/DL Urine Glucose (UA) NEG (NEG) MG/DL Microbiology Microbiology Results: Microbiology 06/08/21 20:05 Stool Stool Culture - Preliminary Normal so far. Assessment and Plan (1) Gastroenteritis: Status: Acute Plan 1/ possible viral or bacterial gastroenteritis, seems to have responded well to ABX, neg stools for c diff Plan; 1/ complete ABx course as prescribed 2/ fluids and PO diet as able 3/ check TSH 4/ If any worsening of sx then can consider cendoscopy but seems to be improving Procedures Date of Service Date of Service: 06/09/21
[2021-06-09] MEDS: Metoprolol Succinate ER 25 MG TAB.ER.24H PO (09:28)
[2021-06-09] MEDS: Amphetamine Mixed Salts 10 MG TABLET 5 MG PO (09:28)
[2021-06-09] MEDS: Apixaban 5 MG TABLET PO ×2 (09:29→20:52)
[2021-06-09] MEDS: Sertraline HCL 50 MG TABLET PO (09:29)
--- NOTE | 2021-06-09 09:40 | MHC.CM.PN ---
CM met with Patient at bedside and addressed IMM with him, providing him with the original and placing a copy on the chart. 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 Home/resume said services is the goal for dc and CM has initiated and will follow for dc planning. Patient does not use O2 at home.PCP is from [facility] and Patient has received Moderna vax X3.
--- NOTE | 2021-06-09 12:09 | PC.NURSE ---
PT removed IV,no bleeding, dressing applied.
--- NOTE | 2021-06-09 13:01 | P.PNIM_ITS ---
Subjective Subjective Date of Service: 06/09/21 Interval History: feeling better this morning low loose stools overnight, denies abdominal pain, no nausea, no vomiting,no fevers no chills, no other acute events overnight, requesting for diet. 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 Neck no JVD. CVS regular rate rhythm, Respiratory lungs clear to auscultation, no respiratory distress, no wheeze, no rhonchi. Gastrointestinal abdomen soft, distended, nontender, bowel sounds audible,no guarding , no rigidity. Extremities no edema. Neuro nonfocal Skin no rash psych appropriate affect Objective Data Active Medications Acetaminophen (Acetaminophen 325 Mg Tablet) 650 mg PO Q6H PRN PRN Reason: Pain, Mild (Pain Scale 1-3) Amphetamine/Dextroamphetamine (Amphetamine Mixed Salts 10 Mg Tablet) 5 mg PO DAILY [facility] Last Admin: 06/09/21 09:28 Dose: 5 mg Documented by: BLAS Apixaban (Apixaban 5 Mg Tablet) 5 mg PO BID [facility] Last Admin: 06/09/21 09:29 Dose: 5 mg Documented by: BLAS Clonazepam (Clonazepam 1 Mg Tablet) 1 mg PO BID PRN PRN Reason: Anxiety Heparin Sodium (Porcine) (Heparin Sodium,Porcine 5,000 Unit/Ml Vial) 5,000 unit SUBCUT Q12H [facility] Last Admin: 06/09/21 05:43 Dose: 5,000 unit Documented by: MALIA Lactated Ringer's (Lr) 1,000 mls @ 100 mls/hr IVCONT .Q10H [facility] Last Admin: 06/09/21 02:41 Dose: 100 mls/hr Documented by: MALIA Levofloxacin (Levaquin) 500 mg in 100 mls @ 100 mls/hr IV Q24H [facility] Metoprolol Succinate (Metoprolol Succinate Er 25 Mg Tab.Er.24h) 25 mg PO DAILY [facility]; Protocol Last Admin: 06/09/21 09:28 Dose: 25 mg Documented by: BLAS Metronidazole (Metronidazole 500 Mg Tablet) 500 mg PO Q8H [facility] Last Admin: 06/09/21 05:43 Dose: 500 mg Documented by: MALIA Omeprazole (Omeprazole 20 Mg Capsule.Dr) 20 mg PO BID@0630,1630 [facility] Last Admin: 06/09/21 05:43 Dose: 20 mg Documented by: MALIA Ondansetron HCl (Ondansetron Hcl 4 Mg/2 Ml Vial) 4 mg IVPUSH Q8H PRN PRN Reason: Nausea and Vomiting Pharmacy Consult (Consult Rx Perform Med Rec) 1 each MISCELLANE ONCE PRN PRN Reason: Consult order Sertraline HCl (Sertraline Hcl 50 Mg Tablet) 50 mg PO DAILY [facility] Last Admin: 06/09/21 09:29 Dose: 50 mg Documented by: BLAS Sodium Chloride (0.9 % Sodium Chloride Flush 3 Ml Syringe) 3 ml IVFLUSH QSHIFT [facility] Last Admin: 06/09/21 09:30 Dose: Not Given Documented by: BLAS Non-Admin Reason: IV Running Labs CBC & Chem 7: 06/09/21 06:37 06/09/21 06:37 Labs: Laboratory Results - last 24 hr 06/08/21 06/08/21 06/08/21 08:11 12:57 20:05 MCV MCH MCHC RDW Plt Count MPV Immature Gran % (Auto) Neut % (Auto) Lymph % (Auto) Dare % (Auto) Eos % (Auto) Baso % (Auto) Lymph # (Auto) Dare # (Auto) Eos # (Auto) Baso # (Auto) Abs Immat Gran (auto) Absolute Neuts (auto) Absolute Nucleated RBC Nucleated RBC % (auto) Anion Gap Estim Creat Clear Calc Estimated GFR Random Glucose Lactic Acid F/U @ 4Hr 0.8 Calcium Magnesium 2.1 Stool Leukocytes, Qual MOD: 3-9/OIF C. difficile Tox B Gene 06/08/21 06/09/21 06/09/21 20:05 06:37 06:37 MCV 93.3 MCH 29.0 MCHC 31.1 RDW 17.6 H Plt Count 194 MPV 10.1 Immature Gran % (Auto) 0.2 Neut % (Auto) 64.9 Lymph % (Auto) 17.7 L Dare % (Auto) 14.7 H Eos % (Auto) 2.1 Baso % (Auto) 0.4 Lymph # (Auto) 0.9 L Dare # (Auto) 0.8 Eos # (Auto) 0.1 Baso # (Auto) 0.0 Abs Immat Gran (auto) 0.01 Absolute Neuts (auto) 3.4 Absolute Nucleated RBC 0.000 Nucleated RBC % (auto) 0.0 Anion Gap 10 L Estim Creat Clear Calc 88.2 Estimated GFR > 60 Random Glucose 87 Lactic Acid F/U @ 4Hr Calcium 7.9 L D Magnesium Stool Leukocytes, Qual C. difficile Tox B Gene NEGATIVE 06/09/21 06:37 MCV MCH MCHC RDW Plt Count MPV Immature Gran % (Auto) Neut % (Auto) Lymph % (Auto) Dare % (Auto) Eos % (Auto) Baso % (Auto) Lymph # (Auto) Dare # (Auto) Eos # (Auto) Baso # (Auto) Abs Immat Gran (auto) Absolute Neuts (auto) Absolute Nucleated RBC Nucleated RBC % (auto) Anion Gap Estim Creat Clear Calc Estimated GFR Random Glucose Lactic Acid F/U @ 4Hr Calcium Magnesium 2.0 Stool Leukocytes, Qual C. difficile Tox B Gene Microbiology Microbiology Results: Microbiology 06/08/21 10:40 Blood Culture - Preliminary Blood - Venous No growth after 24 hours. 06/08/21 10:41 Blood Culture - Preliminary Blood - Venous No growth after 24 hours. 06/08/21 20:05 Stool Culture - Preliminary Stool Normal so far. Assessment and Plan (1) Gastroenteritis: Status: Acute (2) Atrial flutter: Status: Acute (3) PVD (peripheral vascular disease): Status: Acute Plan 76-year-old man admitted with diarrhea 3-4 days duration without associated nausea vomiting hematemesis melena fever chills or rigors. Severe sepsis secondary to gastroenteritis? all features of sepsis resolved, lactic acid normalized diarrhea resolved no abdominal pain cdiff neg, stool cx pending, blood cultures no growth times 24 hours continue levaquin and flagyl day 2, DC IV fluid once able to tolerate by mouth started on full liquid diet,advance diet as tolerated/ wean oxygen case discussed with Dr. Hirsch he agrees with above treatment Afib RVR likely secondary to? sepsis/dehydration now back in SR, troponin negative Continue Eliquis and BB Hypertension. stable BP continue metoprolol Anxiety continue home medications DVT prophylaxis with Eliquis Quality Stroke Does the patient have a stroke diagnosis?: No VTE Prior VTE?: No VTE Risk Level:: Medical - moderate - high VTE Device Contraindication: Treatment Not Indicated VTE Drug Contraindication: N/A - Med Ordered
[2021-06-09] MEDS: clonazePAM 1 MG TABLET PO (13:29)
[2021-06-09] MEDS: levoFLOXacin/D5W 500 MG/100 ML PIGGYBACK 100 MG IV (13:55)
[2021-06-09] MEDS: 0.9 % Sodium Chloride Flush 3 ML SYRINGE IVFLUSH (20:52)
[2021-06-09] MEDS: Zolpidem Tartrate 5 MG TABLET PO (20:52)
[2021-06-10] MEDS: clonazePAM 1 MG TABLET PO ×2 (01:14→13:00)
[2021-06-10 03:13] VITALS: BP 175/88; PULSE 74; RESP 18; TEMP 36.8; O2SAT 93
[2021-06-10] MEDS: Omeprazole 20 MG CAPSULE.DR PO ×2 (05:33→15:58)
[2021-06-10] MEDS: metroNIDAZOLE 500 MG TABLET PO ×2 (05:34→15:59)
[2021-06-10 07:22] VITALS: BP 176/83; PULSE 73; RESP 18; TEMP 36.7; O2SAT 95
[2021-06-10] MEDS: Amphetamine Mixed Salts 10 MG TABLET 5 MG PO (09:40)
[2021-06-10] MEDS: Metoprolol Succinate ER 25 MG TAB.ER.24H PO (09:40)
[2021-06-10] MEDS: Apixaban 5 MG TABLET PO (09:40)
[2021-06-10] MEDS: Sertraline HCL 50 MG TABLET PO (09:40)
[2021-06-10] MEDS: 0.9 % Sodium Chloride Flush 3 ML SYRINGE IVFLUSH ×2 (09:41→15:59)
[2021-06-10 10:55] LABS: Anion Gap 9 (12-20); Blood Urea Nitrogen 11 mg/dL (9-16); Calcium 8.3 mg/dL (8.4-10.2); Carbon Dioxide 23 mmol/L (22-29); Chloride 112 mmol/L (96-108); Creatinine Clr Calc Pharmacy 88.2; Estimated Glomerular Filt Rate > 60; Glucose Random 116 mg/dL (60-115); Potassium 3.5 mmol/L (3.3-5.1); Sodium 140 mmol/L (135-145)
[2021-06-10] MEDS: levoFLOXacin 500 MG TABLET PO (11:01)
[2021-06-10 11:02] VITALS: BP 172/86; PULSE 73; RESP 18; TEMP 36.6; O2SAT 94
[2021-06-10 11:25] LABS: Thyroid Stimulating Hormone 1.85 uIU/mL (0.32-4.0)
[2021-06-10] MEDS: Furosemide 40 MG TABLET PO (12:56)
[2021-06-10 14:26] VITALS: BP 168/81; PULSE 70
[2021-06-10 15:07] VITALS: BP 168/92; PULSE 66; RESP 20; TEMP 36.9; O2SAT 95
--- NOTE | 2021-06-10 15:54 | P.DS_ITS ---
DS: Providers Provider Date of Service: 06/10/21 Date of admission: 06/08/21 15:52 Primary care physician: Yolande Banegas DO Consults: 06/08/21 15:53 Consult to Gastroenterology Routine Consulting Provider: Wanda Pierre Reason for consultation: diarrhea Has provider been notified: No DS: Diagnosis Discharge Diagnosis (1) Gastroenteritis: Status: Acute DS: Summary Hospital Course Hospital Course: 76-year-old man presenting to the ER with complaints of diarrhea/watery stools over the last 3-4 days.? He denies any recent travel, improperly cooked food, fever, chills, nausea, vomiting, blood in the stool.? He did report that his appetite has been very poor over the last several days. ? He does have a history of diverticulitis in the past however abdominal CT showed no acute intra- abdominal process.? His liver enzymes are mildly elevated with AST of 53 and ALT of 45, BNP 228, lipase 7.? He was not noted to have any fever, blood pressure stable.? He was given Levaquin Flagyl IV fluids in the ER.? He will be admitted for further management and treatment of acute diarrhea hospital course 76-year-old man admitted with? diarrhea 3-4 days duration without associated nausea, vomiting,no hematemesis, melena,no fever, chills or rigors, patient denied any shortness of breath cough or sputum production, CT abdomen showed small-bowel air-fluid levels without distension and mid abdomen,no diverticulitis noted, due to high D-dimer of 601,a CTA chest done, that showed no PE, but showed left lower lobe pneumonia, atelectasis and possible right lower lobe pneumonia and dilated ascending thoracic aorta measuring 4.5 cm and question of left renal mass, patient treated with IV fluids,IV Flagyl and Levaquin diarrhea resolved, patient is feeling significantly better, noted to have elevated blood pressure therefore metoprolol 25 mg daily has been changed to b.i.d., he has been continued on Lasix patient blood culture showed no growth C diff came back negative lactic acid normalized is spoke with patient's friend and updated her about all imaging results as per patient's request patient is being followed by occup therapist at [facility] and [facility] and is aware of kidney abno rmalities. Afib RVR likely secondary to? sepsis/dehydration , resolved patient now in sinus rhythm continue beta-blockers and Eliquis Hypertension with elevated blood pressures, continue metoprolol 25 mg b.i.d. and Lasix. Anxiety continue home medications Time Spent with Patient Time attestation: Total time spent providing and/or coordinating discharge services: Discharge coordination time: Greater than 30 minutes Quality: Stroke Does the patient have a stroke diagnosis?: No Physical Exam Vital Signs: Vital Signs: Last Vital Signs Temp 98.4 F 06/10/21 15:07 Pulse 66 06/10/21 15:07 Resp 20 06/10/21 15:07 BP 168/92 H 06/10/21 15:07 Pulse Ox 95 06/10/21 15:07 BMI result Body Mass Index 29.5 Const: Other: General? awake alert, no acute distress.? Neck no JVD. CVS? regular rate rhythm, Respiratory lungs clear to auscultation, no respiratory distress, no wheeze, no rhonchi. Gastrointestinal abdomen soft, distended, nontender, bowel sounds audible,no guarding , no rigidity. Extremities no edema. Neuro nonfocal Skin no rash psych appropriate affect DS: Data Data Completed and Pending Labs on day of discharge: Laboratory Results - last 24 hr 06/10/21 10:24 Sodium 140 Potassium 3.5 Chloride 112 H Carbon Dioxide 23 Anion Gap 9 L BUN 11 Creatinine 0.92 Estim Creat Clear Calc 88.2 Estimated GFR > 60 Random Glucose 116 H Calcium 8.3 L TSH 1.85 Preliminary micro results at discharge 06/08/21 10:40 Blood Culture - Preliminary Blood - Venous No growth after 48 hours. 06/08/21 10:41 Blood Culture - Preliminary Blood - Venous No growth after 48 hours. 06/08/21 20:05 Stool Culture - Preliminary Stool Normal so far. Discharge Plan Discharge Patient Disposition: Home, Self-Care Discharge Diagnosis: severe sepsis due to acute gastroenteritis atrial fibrillation with RVR hypertension uncontrolled blood pressure pneumonia Referrals: Yolande Nicholas DO [Primary Care Provider] - 1 Week Discharge Medications: New metronidazole 500 mg Tablet 500 mg PO Q12H Qty: 6 0RF levofloxacin 500 mg Tablet 500 mg PO Q24H Qty: 3 0RF Continued furosemide 40 mg tablet 1 tab PO DAILY 0RF atorvastatin 80 mg tablet 1 tab PO DAILY 0RF cilostazol 50 mg tablet 1 tab PO BID 0RF clonazepam 1 mg tablet 1 tab PO BID PRN (Reason: Anxiety) 0RF sertraline 50 mg tablet 1 tab PO DAILY 0RF dextroamphetamine-amphetamine 5 mg tablet 1 tab PO DAILY 0RF metoprolol tartrate 25 mg tablet 1 tab PO DAILY 0RF Eliquis 5 mg tablet 1 tab PO BID 0RF Changed metoprolol tartrate 25 mg tablet 1 tab PO BIDWM Qty: 0 0RF Discontinued valacyclovir 1 gram tablet 1 tab PO BID 0RF Discharge Orders: Discharge Order (Routine); Ordered 06/10/21 Ordered By: Rianna Brown Diet: low fat, low cholesterol Activity on Discharge: As tolerated Stand Alone Forms: Patient Portal Discharge page Care Plan Goals: acute gastroenteritis resolved, take by mouth Flagyl and Levaquin for 3 more days as prescribed, CT chest showed no PE but showed left lower lobe infiltrate patient asymptomatic no cough, no shortness of breath, no hypoxia, noted to have elevated blood pressure therefore dose of metoprolol increased to 25 mg b.i.d. recommend outpatient blood pressure follow-up take low residue bland diet Health Concerns: hyperlipidemia/ atrial fibrillation continue Eliquis Plan of Treatment: outpatient follow-up with primary care physician in 1-2 weeks Assessment: per discharge summary
[2021-06-10] MEDS: Metoprolol Tartrate 25 MG TABLET PO (15:58)
== END 2021-06-10 18:00 | disposition home or self-care (01) | DRG 872 ==
LOC: HO.ED 15:46 → HO.EDOVER 16:35 → HO.IMC 18:20
PROVIDERS: Internal Medicine; Admitting Provider Nurse Practitioner Acute Care; Emergency Provider Emergency Medicine; PCP Internal Medicine; Visit Provider Hospitalist
DX: A41.9 Sepsis, unspecified organism (principal); I48.92 Unspecified atrial flutter; A04.9 Bacterial intestinal infection, unspecified; A08.4 Viral intestinal infection, unspecified; E86.0 Dehydration; I48.91 Unspecified atrial fibrillation; E78.5 Hyperlipidemia, unspecified; R65.20 Severe sepsis without septic shock; F41.9 Anxiety disorder, unspecified; I10 Essential (primary) hypertension; I73.9 Peripheral vascular disease, unspecified; Z85.528 Personal history of other malignant neoplasm of kidney; Z20.822 Contact with and (suspected) exposure to COVID-19; Z79.01 Long term (current) use of anticoagulants; Z79.899 Other long term (current) drug therapy
CPT/HCPCS: 36415; 71045; 71275; 74177; 80048; 80076; 81001; 83605; 83690; 83735; 83880; 84443; 84484; 85025; 85379; 87040; 87045; 87046; 87493; 87635; 89055; 93005; 96361; 96365; 96375; 96376; 99285; J1956

== ENCOUNTER → 2021-08-17 14:35 | Outpatient (BNVA) | payer MEDICARE, OTHER, SELFPAY | PROVIDERS: PCP Internal Medicine; Referring Provider Internal Medicine; Visit Provider Physician Assistant | DX: R19.5 Other fecal abnormalities (principal); Z87.19 Personal history of other diseases of the digestive system | CPT/HCPCS: 99202 ==

== ENCOUNTER 2021-09-06 15:15 | Emergency (ER) | payer MEDICARE, OTHER, SELFPAY ==
--- NOTE | ~2021-09-06 | CT_ITS ---
EXAMINATION: CT HEAD WITHOUT CONTRAST CT CERVICAL SPINE WITHOUT CONTRAST CLINICAL INFORMATION: Injury. On Eliquis COMPARISON: None. TECHNIQUE: Imaging was performed from the skull base to vertex without intravenous administration of contrast. In addition, helical noncontrast CT imaging was acquired through the cervical spine and source images were reviewed along with axial reconstructions and sagittal and coronal MPRs. [This CT examination was performed using dose optimization techniques as appropriate, variously including the following: *Automated exposure control *Adjustment of mA and/or kV according to patient size (this includes techniques or standardized protocols for targeted exams where dose is matched to indication/reason for exam; i.e. extremities or head) *Use of iterative reconstruction technique] DLP: 1350 mGy-cm FINDINGS: HEAD: No intracranial mass, hemorrhage, or midline shift is visualized. There is generalized global volume loss. There is moderate prominence of the ventricles and the sulci . There is mild hypodensity of the periventricular white matter due to chronic small vessel ischemic disease. There are vascular calcifications of the internal carotid arteries bilaterally. . No extra-axial collections are identified. The paranasal sinuses and mastoid air cells are well aerated. CERVICAL SPINE: There is no evidence of acute cervical spine fracture. Vertebral bodies remain normal in height. Cervical vertebrae have normal alignment. There is multilevel degenerative spondylosis of the cervical spine with disc height narrowing and endplate spurs and facet joint arthrosis No pre- or paravertebral soft tissue abnormality is identified. Limited assessment of the lung apices is unremarkable. CT/CT cervical spine wo con IMPRESSION: 1. No acute intracranial pathology. 2. No CT evidence of acute cervical spine fracture or traumatic subluxation
[2021-09-06 15:24] VITALS: BP 121/68; BP 147/60; PULSE 64; PULSE 72; RESP 16; TEMP 36.7; O2SAT 95; O2SAT 96; BMI 29.8
--- NOTE | 2021-09-06 15:34 | ED_ITS ---
HPI - Head Injury General Chief complaint: General Medical Stated complaint: Head Lac Time Seen by Provider: 09/06/21 15:32 Source: patient Mode of arrival: EMS Limitations: no limitations History of Present Illness MD Complaint: head injury Onset (ago): minute(s) (prior to arrival ) Mechanism of Injury: other (metal ladder fell and struck top of head) Place: home Loss of Consciousness: no Location of injury: frontal Severity: mild Quality: dull Radiation: none Other Injuries: laceration Context: other anticoagulant use (eliquis -?VTE during COVID per his reports) Associated symptoms: denies other symptoms Related Data Home Medications Medication Instructions Recorded Confirmed apixaban 5 mg tablet (Eliquis) 1 tab PO BID 06/08/21 06/08/21 atorvastatin 80 mg tablet 1 tab PO DAILY 06/08/21 06/08/21 cilostazol 50 mg tablet 1 tab PO BID 06/08/21 06/08/21 clonazepam 1 mg tablet 1 tab PO BID PRN 06/08/21 06/08/21 dextroamphetamine-amphetamine 5 mg 1 tab PO DAILY 06/08/21 06/08/21 tablet furosemide 40 mg tablet 1 tab PO DAILY 06/08/21 06/08/21 sertraline 50 mg tablet 1 tab PO DAILY 06/08/21 06/08/21 aspirin 81 mg tablet,delayed 81 mg PO DAILY 08/17/21 release (Adult Low Dose Aspirin) docusate sodium 100 mg capsule 100 mg PO DAILY 08/17/21 lisinopril 30 mg tablet 30 mg PO DAILY 08/17/21 melatonin 3 mg tablet (Melatin) 1.5 mg PO BEDTIME 08/17/21 multivit,Ca,min-iron 8 mg-folic tab PO 08/17/21 acid 200 mcg-lycopene 600 mcg tablet (Centrum Men) quetiapine 25 mg tablet mg PO 08/17/21 Previous Rx's Medication Instructions Recorded levofloxacin 500 mg tablet 500 mg PO Q24H #3 tab 06/10/21 metoprolol tartrate 25 mg tablet 1 tab PO BIDWM #0 tab 06/10/21 metronidazole 500 mg tablet 500 mg PO Q12H #6 tab 06/10/21 Allergies Allergy/AdvReac Type Severity Reaction Status Date / Time No Known Allergies Allergy Verified 08/17/21 14:45 [No Known Allergies*] Review of Systems Review of Systems: Constitutional : No Fever, No Chills, No Fatigue ENT/Mouth : No sore throat, No Rhinorrhea Eyes: No Eye Pain, No Swelling, No Redness Cardiovascular : No Chest Pain, No SOB, No Dyspnea on Exertion Respiratory : No Cough, No Sputum Gastrointestinal : No Nausea, No Vomiting, No Diarrhea, No abdominal Pain Genitourinary : No Dysuria, No Urinary Frequency, No Hematuria, Musculoskeletal : No joint pain, No Myalgias, No Joint Swelling Skin : No Skin Lesions, No rash, pos laceration Neuro : No Weakness, No Numbness, No Dizziness, positive Headache Psych : No Anxiety/Panic, No Depression Heme/Lymph: No Bruising, No Bleeding,No Lymphadenopathy Endocrine : No Polyuria, No Polydipsia All other systems reviewed and are negative [facility] Past Medical History Attestation statement: The following information was validated with the patient. Medical History Anxiety Depression Diverticulitis Hypertension Renal cell carcinoma Surgical History History of colectomy S/P femoral-femoral bypass surgery Social History Social History Household Members: Spouse Housing: House Do you presently have visiting nurse or other home services: No Alcohol intake: never Patient Tobacco Use Status: Never used Tobacco Advance Directives: Yes Advance Directives on File: Yes Advance Directives Date on File: 06/09/21 service: Yes Current occupational status: retired Physical Exam Vital Signs: Vital Signs: Last Vital Signs Temp 98.1 F 09/06/21 15:24 Pulse 64 09/06/21 15:24 Resp 16 09/06/21 15:24 BP 147/60 H 09/06/21 15:24 Pulse Ox 95 09/06/21 15:24 BMI result Body Mass Index 29.8 Appearance: Alert. Oriented X3. No acute distress. Eyes: Pupils equal, round and reactive to light. ENT: Pharynx normal. 2cm laceration on frontal scalp posterior to hairline Neck: Normal inspection. Neck supple. CVS: Normal heart rate and rhythm. Pulses normal. Respiratory: No respiratory distress. Breath sounds normal. Abdomen: Soft and non-tender. Skin: Skin warm and dry. Normal skin color. Normal skin turgor. Extremities: No lower extremity edema. No calf ttp Neuro: Oriented X 3. No motor deficit. No sensory deficit. Course Course Course Narrative: GCS 15 - no vomiting, stable for baseline. MDM - Head Injury MDM Narrative Medical decision making narrative: 76 yo male with hx of PVD, diverticulitis, HLD, HTN, on eliquis was working on his home trying to get rid of glover bees when the aluminum ladder he was using fell over and struck his head, he had no LOC and did not fall to the ground. He is GCS 15 at this time will need head CT, cervical spine for trauma. Wound repair for laceration. Procedures Laceration Laceration 1: Site: scalp Size (cm): 2 Description: linear Depth: simple, single layer Local Anesthetic: other anesthetic (LMX 4%) Amount of anesthesia used (mL): 3 Pre-repair: wound explored and irrigated extensively Skin layer closed with: other (2 latosha) Discharge Plan Discharge Clinical Impression: Laceration of scalp, Head injury Patient Disposition: Home, Self-Care Instructions: Laceration (ED), Head Injury (ED) Additional Instructions: return to ED for any worsening symptoms or concerns okay to shower with latosha, they can come out in 10 days - urgent care, primary care office, emergency room. monitor for redness, yellow drainage, fevers no acute injury on CT scan of head or neck - return for vomiting, severe headache, confusion CT/CT cervical spine wo con IMPRESSION: 1. No acute intracranial pathology. 2. No CT evidence of acute cervical spine fracture or traumatic subluxation Prescriptions: No Action furosemide 40 mg tablet 1 tab PO DAILY 0RF atorvastatin 80 mg tablet 1 tab PO DAILY 0RF cilostazol 50 mg tablet 1 tab PO BID 0RF clonazepam 1 mg tablet 1 tab PO BID PRN (Reason: Anxiety) 0RF sertraline 50 mg tablet 1 tab PO DAILY 0RF dextroamphetamine-amphetamine 5 mg tablet 1 tab PO DAILY 0RF Eliquis 5 mg tablet 1 tab PO BID 0RF metronidazole 500 mg Tablet 500 mg PO Q12H Qty: 6 0RF levofloxacin 500 mg Tablet 500 mg PO Q24H Qty: 3 0RF metoprolol tartrate 25 mg tablet 1 tab PO BIDWM Qty: 0 0RF aspirin [Adult Low Dose Aspirin] 81 mg tablet,delayed release (DR/EC) 81 mg PO DAILY 0RF lisinopril 30 mg tablet 30 mg PO DAILY 0RF quetiapine 25 mg tablet PO 0RF melatonin [Melatin] 3 mg tablet 1.5 mg PO BEDTIME 0RF docusate sodium 100 mg capsule 100 mg PO DAILY 0RF Centrum Men 8 mg iron- 200 mcg-600 mcg tablet PO 0RF Referrals: Physician,Unknown J [Primary Care Provider] - 10 days (PCP to remove latosha)
[2021-09-06] MEDS: Lidocaine 4 % Cream KIT 1 APPL TOPICAL (16:24)
[2021-09-06 17:24] VITALS: BP 157/70; PULSE 61; RESP 18; TEMP 36.9; O2SAT 98
== END 2021-09-06 18:07 | disposition home or self-care (01) ==
PROVIDERS: Emergency Provider Emergency Medicine
DX: S01.01XA Laceration without foreign body of scalp, initial encounter (principal); I10 Essential (primary) hypertension; Z79.01 Long term (current) use of anticoagulants; W22.8XXA Striking against or struck by other objects, initial encounter; Y93.9 Activity, unspecified; Y92.009 Unspecified place in unspecified non-institutional (private) residence as the place of occurrence of the external cause; Y99.9 Unspecified external cause status
CPT/HCPCS: 12001; 70450; 72125; 99283; 99284

== ENCOUNTER → 2021-11-22 13:52 | Outpatient (BNVA) | payer MEDICARE, OTHER, SELFPAY | PROVIDERS: PCP Internal Medicine; Visit Provider Internal Medicine Gastroenterology | DX: Z86.010 Personal history of colon polyps (principal) | CPT/HCPCS: 99212 ==

== ENCOUNTER 2021-12-06 14:00 | Outpatient (RCR) | payer MEDICARE, OTHER, SELFPAY | END 2022-02-02 13:44 | disposition home or self-care (01) | LOC: HO.PT 14:00 | PROVIDERS: PCP Internal Medicine; Visit Provider Internal Medicine | DX: I73.9 Peripheral vascular disease, unspecified (principal) | CPT/HCPCS: 97110; 97112; 97162; 97530 ==

== ENCOUNTER 2022-01-05 12:55 | Outpatient (REF) | payer MEDICARE, OTHER, SELFPAY ==
[2022-01-05 15:53] LABS: Vitamin B12 717 pg/mL (200-900)
== END 2022-01-05 12:56 | disposition home or self-care (01) ==
LOC: HO.LAB 12:55
PROVIDERS: Visit Provider Psychiatry & Neurology Neurology
DX: F10.27 Alcohol dependence with alcohol-induced persisting dementia (principal)
CPT/HCPCS: 36415; 82607; 82746

== ENCOUNTER → 2022-01-27 14:11 | Outpatient (BNVA) | payer MEDICARE, OTHER, SELFPAY | PROVIDERS: PCP Internal Medicine; Referring Provider Internal Medicine; Visit Provider Internal Medicine | DX: Z01.810 Encounter for preprocedural cardiovascular examination (principal); I48.92 Unspecified atrial flutter; I71.2 Thoracic aortic aneurysm, without rupture; I25.10 Atherosclerotic heart disease of native coronary artery without angina pectoris; I73.9 Peripheral vascular disease, unspecified | CPT/HCPCS: 93005; 99202 ==

== ENCOUNTER → 2022-02-25 08:19 | Outpatient (REF) | payer MEDICARE, SELFPAY ==
--- NOTE | ~2022-02-25 | NM_ITS ---
Lexiscan Myocardial perfusion study Indication: Preoperative cardiovascular evaluation Technique: The patient was brought in for a Lexiscan perfusion study on 02/25/2022 and was injected 0.4 mg of Lexiscan intravenously. Within a minute of this injection 35 mCi of sestamibi was given intravenously. Images were obtained using the SPECT gamma camera interlaced with the gating device. Images were obtained in supine position. Resting perfusion study was performed on 02/28/2022. Patient was administered 35 mCi of sestamibi intravenously at rest. Images were then obtained in supine position. Images were processed with the software and compared side to side in short axis, horizontal long axis and vertical long axis views. Total DLP 92 mGy-cm. Findings: Raw acquisition reviewed. The stress perfusion study showed severely reduced to absent tracer uptake in the mid to distal anterior wall as well as the adjacent apex. Seen with uncorrected as well as CT attenuation correction. The gated study shows reduced LV systolic function with calculated LVEF of 38%. LV cavity is normal in size. The gated study shows absent contractility in the mid to distal anterior wall and adjacent apex. Resting study shows severely reduced tracer uptake in the mid to distal anterior wall and adjacent apex. There is only slight improvement with CT attenuation correction. Gating at rest reveals LVEF of 33%. Severe hypokinesis in the mid to distal anterior wall, adjacent apex The findings are consistent with mixed reversible/fixed pattern in the mid to distal anterior wall, adjacent apex with predominantly fixed.. NM/NM lee perf SPECT rest & str Impression: 1. 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 2. Gated LVEF is 38% during stress and 33% during rest. 3. Transient ischemic dilatation not present. EKG component of the test reported separately.
--- NOTE | 2022-02-25 08:22 | CA_ITS ---
Transthoracic Echocardiogram Amended Patient (Last, First, Middle): Alex Nettles, Gender: Male Date of : 1945 Age: 77 Procedure Date: 02/25/2022 Procedure Type: Transthoracic Echocardiogram Location: OP Height: 182.88 cm Weight: 102.06 kg BSA: 2.24 m2 Heart Rate: 54 bpm BP: 125 / 70 mmHg Cone Winder: RICK Sosa MD: Manas Rutledge MD Safety Patrol Officer: Klever Head MD Symptoms: Z01.810 - Encounter for preprocedural cardiovascular examination Study Quality: Fair ECG Rhythm: Bradycardia Conclusions: - 1. Normal LV systolic function with impaired relaxation filling pattern 2. Normal cardiac valvular Doppler 3. Normal RV systolic pressure 4. No gross pericardial effusion 5. Mildly dilated ascending aorta at 4.1 cm Findings Left Ventricle Normal left ventricular size, thickness, and systolic function. The visually estimated ejection fraction is between 55-60%. Regional wall motion abnormalities can not be excluded due to suboptimal endocardial definition. Spectral Doppler is indicative of an impaired relaxation filling pattern. E/E prime ratio is between 8 and 15 consistent with indeterminate filling pressures. Right Ventricle Normal right ventricular cavity size and systolic function. Atria The left atrium is normal in size. Interatrial shunt cannot be excluded. The right atrium is normal in size. Aortic Valve Normal aortic valve structure and function. There is no aortic valve stenosis. There is no aortic valve regurgitation. Mitral Valve There is mild anterior and posterior mitral leaflet thickening. There is trace mitral valve regurgitation. There is no mitral valve stenosis. Pulmonic Valve The pulmonic valve was not well visualized. Tricuspid Valve Likely normal tricuspid valve structure and function. There is trace tricuspid valve regurgitation. The right ventricular systolic pressure is normal. The right ventricular systolic pressure is 17 mmHg. Normal right atrial pressure. There is no evidence of pulmonary hypertension. Great Vessels The pulmonary artery was not well visualized. There is mild dilatation of the ascending aorta measuring 4.10 cm. Venous The inferior vena cava is normal in size and collapses greater than 50% with inspiration. Pericardium/Pleural There is no evidence of pericardial effusion. Prior Study Comparison No prior study available for comparison. Measurements 2D Linear Measurements IVSd: 1.24 0.6-0.9/0.6-1.0 cm LVIDd: 5.45 3.9-5.3/4.2-5.9 cm LVIDd Index: 2.43 2.4-3.2/2.2-3.1 cm/m2 LVIDs: 3.67 2.0-3.6 cm LVPWd: 1.03 0.7-1.1 cm LA Diam: 4.20 2.7-3.8/3.0-4.0 cm LAIDs Index: 1.88 1.5-2.3 cm/m2 LV Mass: 334.73 67-162/88-224 g LV Mass Index: 149.43 43-95/49-115 g/m2 LVOT Diam: 2.40 3.0+(-)1.3 cm 2D Volumes LA Vol: 29.00 2D Systolic Function EF 4C: 53.00 >55% EF 2C: 44.50 >55% Mitral Valve MV Pk E: 0.64 MV PK A: 0.96 MV Decel Time: 308.00 E/A: 0.70 E'Lateral: 4.03 E'Medial: 3.59 E/E' Med: 17.80 E/E' Lat: 15.80 PHT: 90.00 MVA PHT: 2.44 Decel [place]: 2.07 Aortic Valve AoV Pk Sonu: 1.02 AoV Mn Sonu: 0.76 AoV VTI: 0.22 AoV Pk Grad: 4.00 Aov Mn Grad: 3.00 ALLY Cont.VTI: 4.44 LVOT LVOT Pk Sonu: 1.02 LVOT Mn Sonu: 0.62 LVOT VTI: 0.21 LVOT Pk Grad: 4.00 LVOT Mn Grad: 2.00 LVOT Diam: 2.40 LVOT Area: 4.52 Diastolic Function MV Pk E: 0.64 MV Pk A: 0.96 E/A: 0.70 E'Medial: 3.59 E/E' Med: 17.80 E' Laterial: 4.03 E/E' Lat: 15.80 Right Ventricle TAPSE (mm): 19.30 TVS' Sonu: 12.40 Tricuspid Valve TR Pk Sonu: 1.87 TR Pk Grad: 14.00 RA Press: 3.00 RVSP: 17.00 Great Vessels Aorta Sinus of Valsalva: 4.60 2.0-3.5 cm Ao Asc: 4.10 2.1-3.4 cm Pulmonary Valve PV Pk Sonu: 0.95 Peak PV Grad: 4.00 Updated in Other Vendor System with Status of Final Klever Head MD electronically signed on 02/25/2022 3:15:04 PM with status of Final
--- NOTE | 2022-02-25 08:22 | CA_ITS ---
Acquisition Time: 2022-02-25 09:40:44 Total Exercise Time: 00:02:00 Test Indications: ABN EKG Medications: SEE CHART Protocol: LEXISCAN Max HR: 074 BPM 51% of Pred: 145 BPM Max BP: 142/072 mmHG Max Work Load: 1.0 METS Pharmacological stress test with Lexiscan injection, while sitting and kicking his legs, without anginal symptoms, without arrythmia, with normotensive response to injection, with nondiagnostic EKG for ischemia. Nuclear images pending. Test reviewed with Dr Head Referred By: Manas Rutledge Overread By: LOU CEE
== END ==
LOC: HO.CARD 08:19
PROVIDERS: Visit Provider Internal Medicine
DX: Z01.818 Encounter for other preprocedural examination (principal)
CPT/HCPCS: 78452; 93017; 93306; A9500; J0280; J2785

== ENCOUNTER 2022-03-08 09:59 | Day surgery (SDC) | payer MEDICARE, SELFPAY ==
--- NOTE | 2022-03-07 11:56 | HO.ANESPROP2 ---
Documented by User: Noelle Tyler NP 03/07/22 12:02 HPI - Anesthesia Eval Consult details Narrative: 77yo M for Colonoscopy Eliquis for PAF Cardiac cleared: For colonoscopy may proceed. Intermediate risk. Eliquis can be held for 2 days prior to procedure. Resume post colonoscopy. [facility] Active Problems Active Problems: All Active Problems (Updated 03/02/22 @ 11:57 by Kira Lr RN) Poor historian (Acute) Anticoagulant long-term use (Acute) Heme positive stool (Acute) History of diverticulitis (Acute) History of colostomy reversal (Acute) Encounter for screening colonoscopy (Acute) Preoperative cardiovascular examination (Acute) Paroxysmal atrial flutter (Acute) Ascending aortic aneurysm (Acute) Coronary artery calcification seen on CT scan (Acute) PVD (peripheral vascular disease) (Acute) Past Medical History Medical History Anxiety COPD (chronic obstructive pulmonary disease) Depression Diverticulitis History of alcohol abuse History of atrial fibrillation History of COVID-19 Hypertension On anticoagulant therapy On beta jose at home PVD (peripheral vascular disease) Renal cell carcinoma Surgical History Surgical History History of colectomy S/P femoral-femoral bypass surgery Social History Social History Household Members: Spouse Housing: House Do you presently have visiting nurse or other home services: No Alcohol intake: never Patient Tobacco Use Status: Former Tobacco user Are you DNR?: No Advance Directives: Yes Advance Directives on File: Yes Advance Directives Date on File: 06/09/21 Nutrition Risks: No Nutritional Risk service: Yes Current occupational status: retired Meds Allergies Allergy/AdvReac Type Severity Reaction Status Date / Time No Known Allergies Allergy Verified 03/08/22 09:52 [No Known Allergies*] Home Medications Medication Instructions Recorded Confirmed Last Taken Type cilostazol 50 mg tablet 1 tab PO BID 06/08/21 03/01/22 06/07/21 History clonazepam 1 mg tablet 1 tab PO BID PRN Anxiety 06/08/21 03/01/22 06/07/21 History dextroamphetamine-amphetamine 5 mg 1 tab PO DAILY 06/08/21 01/27/22 06/07/21 History tablet sertraline 50 mg tablet 1 tab PO DAILY 06/08/21 03/01/22 06/07/21 History aspirin 81 mg tablet,delayed 81 mg PO DAILY 08/17/21 03/01/22 Unknown History release (Adult Low Dose Aspirin) docusate sodium 100 mg capsule 100 mg PO DAILY 08/17/21 03/01/22 Unknown History lisinopril 30 mg tablet 30 mg PO DAILY 08/17/21 03/01/22 Unknown History melatonin 3 mg tablet (Melatin) 1.5 mg PO BEDTIME 08/17/21 03/01/22 Unknown History multivit,Ca,min-iron 8 mg-folic tab PO 08/17/21 01/27/22 Unknown History acid 200 mcg-lycopene 600 mcg tablet (Centrum Men) quetiapine 25 mg tablet mg PO 08/17/21 01/27/22 Unknown History apixaban 5 mg tablet (Eliquis) 5 mg PO BID 01/27/22 03/01/22 Unknown History atorvastatin 80 mg tablet 80 mg PO DAILY 01/27/22 03/01/22 Unknown History furosemide 40 mg tablet 40 mg PO DAILY 01/27/22 03/01/22 Unknown History metoprolol tartrate 25 mg tablet 25 mg PO BIDWM 01/27/22 03/01/22 Unknown History Exam Exam Date and Time: March 07, 2022 1156 Narrative Narrative: Echo with normal LVEF. 55-60%; no valvular issues; ascending aoric size 4.1cm. Stress test with old LAD territory infarct and omero-infarct ischemia. Assessment and Plan Assessment Anesthesia Assessment: Chart Reviewed Documented by User: Geraldine Sr MD 03/08/22 10:33 [facility] Past Medical History Medical History Anxiety COPD (chronic obstructive pulmonary disease) Depression Diverticulitis History of alcohol abuse History of atrial fibrillation History of COVID-19 Hypertension On anticoagulant therapy On beta jose at home PVD (peripheral vascular disease) Renal cell carcinoma Surgical History Surgical History History of colectomy S/P femoral-femoral bypass surgery History of Problems with Anesthesia: No Social History Social History Household Members: Spouse Housing: House Do you presently have visiting nurse or other home services: No Alcohol intake: never Patient Tobacco Use Status: Former Tobacco user Are you DNR?: No Advance Directives: Yes Advance Directives on File: Yes Advance Directives Date on File: 06/09/21 Nutrition Risks: No Nutritional Risk service: Yes Current occupational status: retired Meds Allergies Allergy/AdvReac Type Severity Reaction Status Date / Time No Known Allergies Allergy Verified 03/08/22 09:52 [No Known Allergies*] Home Medications Medication Instructions Recorded Confirmed Last Taken Type cilostazol 50 mg tablet 1 tab PO BID 06/08/21 03/01/22 06/07/21 History clonazepam 1 mg tablet 1 tab PO BID PRN Anxiety 06/08/21 03/01/22 06/07/21 History dextroamphetamine-amphetamine 5 mg 1 tab PO DAILY 06/08/21 01/27/22 06/07/21 History tablet sertraline 50 mg tablet 1 tab PO DAILY 06/08/21 03/01/22 06/07/21 History aspirin 81 mg tablet,delayed 81 mg PO DAILY 08/17/21 03/01/22 Unknown History release (Adult Low Dose Aspirin) docusate sodium 100 mg capsule 100 mg PO DAILY 08/17/21 03/01/22 Unknown History lisinopril 30 mg tablet 30 mg PO DAILY 08/17/21 03/01/22 Unknown History melatonin 3 mg tablet (Melatin) 1.5 mg PO BEDTIME 08/17/21 03/01/22 Unknown History multivit,Ca,min-iron 8 mg-folic tab PO 08/17/21 01/27/22 Unknown History acid 200 mcg-lycopene 600 mcg tablet (Centrum Men) quetiapine 25 mg tablet mg PO 08/17/21 01/27/22 Unknown History apixaban 5 mg tablet (Eliquis) 5 mg PO BID 01/27/22 03/01/22 Unknown History atorvastatin 80 mg tablet 80 mg PO DAILY 01/27/22 03/01/22 Unknown History furosemide 40 mg tablet 40 mg PO DAILY 01/27/22 03/01/22 Unknown History metoprolol tartrate 25 mg tablet 25 mg PO BIDWM 01/27/22 03/01/22 Unknown History Assessment and Plan Assessment Anesthesia Assessment: Anesthesia Plan Discussed Final Anesthetic Review History of Problems with Anesthesia: No NPO: Yes ASA Class: III Final Preanesthetic Review: Meds/Allgs Chart Reviewed, Consent Obtained/Reviewed and Anes Risks/Benef Reviewed Patient Risk: Intermediate Procedure Risk: Low Anesthetic Plan Anesthetic Plan: MAC: Disposition: Standard PACU
[2022-03-08 10:14] VITALS: BMI 30.3
[2022-03-08] MEDS: Lactated Ringers 1,000 ML 100 ML IVCONT (10:17)
[2022-03-08 10:20] VITALS: BP 143/74; PULSE 54; RESP 18; TEMP 36.6; O2SAT 96
--- NOTE | 2022-03-08 10:27 | MHC.SHP ---
Pre-Procedural Eval Section A Date of Service: 03/08/22 Section B Chief Complaint: Personal history of other diseases of the digestiv Relevant Family History (Specify if Yes): No Relevant Social History: None Present Medications: see Short Stay Collaborative assessment Medical History: Significant History (Anxiety COPD (chronic obstructive pulmonary disease) Depression Diverticulitis History of alcohol abuse History of atrial fibrillation History of COVID-19 Hypertension On anticoagulant therapy On beta jose at home PVD (peripheral vascular disease) Renal cell carcinoma) History of Previous Operations: Relevant previous surgery/procedure and date(s) (History of colectomy S/P femoral-femoral bypass surgery) Allergies: Allergies Allergy/AdvReac Type Severity Reaction Status Date / Time No Known Allergies Allergy Verified 03/08/22 09:52 [No Known Allergies*] Review of Systems Sugical H&P ROS: Negative: Constitution, Cardiovascular, Respiratory, Neurological, Psychiatric, Hem-Onc, Allergic/Immunologic, Gastrointestinal, Genitourinary, Musculoskeletal, Integumentary, Endocrine and Eyes/Ears/Nose/Throat Exam Surgical H&P Exam: Normal: HEENT, Normal: Heart, Normal: Lungs, Normal: Extremities, Normal: Abdomen, Normal: Skin and Normal: Neurological Plan Diagnosis/Plan: Unchanged I have reviewed the history and physical and performed a pertinent physical examination on my patient. No changes have occurred unless specified.
--- NOTE | 2022-03-08 10:56 | PC.NURSE ---
author attempted IV x 2. Kari Giordano RN attempted once and inserted to left forearm.
--- NOTE | 2022-03-08 11:00 | P.OP_ITS ---
Operative Note Operative Note Date of Service: 03/08/22 Narrative: Operative Information Procedure Description: Colonoscopy Indication: screening Anesthesia: MAC COLONOSCOPY Instrument: Olympus variable stiffness pediatric scope 190L Colonoscopy Monitoring: Vital signs and clinical assessment, continuous EKG monitoring, Pulse oximetry, Carbon Dioxide monitoring and blood pressure monitoring were done throughout the procedure. Colon withdrawal time was 11 minutes. Procedure: The patient was placed in the left lateral decubitis position and pre-procedure medications were administered. After a digital rectal examination of the ano-rectum, the video colonoscope was inserted into the rectum and advanced through the colon to the cecum/TI. The colonoscope was slowly withdrawn in a retrograde panoramic fashion and the colon mucosa was carefully examined including a retroflexed view of the rectum. Findings and interventions are described below. Procedure Difficulty: easy Findings: Terminal Ileum-normal Cecum:x 3 sessile polyps noted, measuring 10-11 mm, 2 removed with cold snare and one with cold forceps Ascending Colon: few diverticula seen Transverse Colon -normal Descending Colon:normal Sigmoid Colon: moderate severe diverticulosis Rectum: Retroflexion with small internal hemorrhoids, grade I, 10 mm sessile polyp removed with cold snare Anorectum - normal Colon preparation: [place] Bowel Preparation Scale Right colon; 2 Transverse colon: 3 Left colon; 3 (0 = Unprepared colon segment with mucosa not seen due to solid stool that cannot be cleared. 1 = Portion of mucosa of the colon segment seen, but other areas of the colon segment not well seen due to staining, residual stool and/or opaque liquid. 2 = Minor amount of residual staining, small fragments of stool and/or opaque liquid, but mucosa of colon segment seen well. 3 = Entire mucosa of colon segment seen well with no residual staining, small fragments of stool or opaque liquid) Impression and Post Procedure Diagnosis: polyps internal hemorrhoids diverticular disease Plan: High fiber diet leaflet Avoid straining at stool, epsom salts and sitz bath, anusol supps or cream Repeat Colonoscopy in 3 years due to adenomatous appearing polyps in the cecum or earlier if clinically indicated and if health allows can restart apixiban tomorrow evening. Above findings were reviewed with the patient and relevant handouts were provided if indicated.
[2022-03-08 11:30] VITALS: BP 95/38; PULSE 59; RESP 16; TEMP 36.3; O2SAT 96
[2022-03-08 11:43] VITALS: BP 105/40; PULSE 69; RESP 17; O2SAT 96
[2022-03-08 11:58] VITALS: BP 138/78; PULSE 79; RESP 18; TEMP 36.6; O2SAT 97
== END 2022-03-08 12:25 | disposition home or self-care (01) ==
PROVIDERS: Visit Provider Internal Medicine Gastroenterology
PROC: 0DJD8ZZ Inspection of Lower Intestinal Tract, Via Natural or Artificial Opening Endoscopic (ICD-10-PCS; CPT 45378; principal; 2022-03-08 10:30)
DX: Z12.11 Encounter for screening for malignant neoplasm of colon (principal); Z87.19 Personal history of other diseases of the digestive system; D12.0 Benign neoplasm of cecum; K62.1 Rectal polyp; K57.30 Diverticulosis of large intestine without perforation or abscess without bleeding; K64.0 First degree hemorrhoids; J44.9 Chronic obstructive pulmonary disease, unspecified; I48.91 Unspecified atrial fibrillation; I10 Essential (primary) hypertension; I73.9 Peripheral vascular disease, unspecified; F32.A Depression, unspecified; F41.1 Generalized anxiety disorder; Z79.01 Long term (current) use of anticoagulants; Z79.899 Other long term (current) drug therapy; Z79.82 Long term (current) use of aspirin; F10.11 Alcohol abuse, in remission; Z86.16 Personal history of COVID-19; Z90.49 Acquired absence of other specified parts of digestive tract; Z87.891 Personal history of nicotine dependence
CPT/HCPCS: 45385; 45380; 88305

== ENCOUNTER → 2022-03-10 14:10 | Outpatient (BNVA) | payer MEDICARE, SELFPAY | PROVIDERS: PCP Internal Medicine; Referring Provider Internal Medicine; Visit Provider Internal Medicine | DX: I25.10 Atherosclerotic heart disease of native coronary artery without angina pectoris (principal); I48.92 Unspecified atrial flutter; I71.20 Thoracic aortic aneurysm, without rupture, unspecified | CPT/HCPCS: 99212 ==

== ENCOUNTER 2022-03-15 10:10 | Outpatient (REF) | payer MEDICARE, SELFPAY ==
[2022-03-15 11:06] LABS: INTERNATIONAL NORM RATIO 1.2 (0.9-1.1); Prothrombin Time 13.4 SEC (10.0-13.1)
[2022-03-15 11:08] LABS: Hematocrit 47.1 % (42.0-52.0); Hemoglobin 15.4 g/dl (14.0-18.0); Mean Corpuscular HGB Conc 32.7 g/dl (31.0-36.0); Mean Corpuscular Volume 97.9 fL (80.0-98.0); Mean Platelet Volume 10.1 fL (9.4-12.4); Platelet Count 281 X10*3/uL (160-400); Red Blood Count 4.81 X10*6/uL (4.60-5.80); Red Cell Distribution Width 13.7 % (11.0-16.0); White Blood Count 8.6 X10*3/uL (4.8-10.8)
[2022-03-15 11:52] LABS: Anion Gap 15 (12-20); Blood Urea Nitrogen 16 mg/dL (9-16); Calcium 9.5 mg/dL (8.4-10.2); Carbon Dioxide 26 mmol/L (22-29); Chloride 108 mmol/L (96-108); Estimated Glomerular Filt Rate > 60; Glucose Random 69 mg/dL (60-115); Potassium 4.5 mmol/L (3.3-5.1); Sodium 144 mmol/L (135-145)
== END 2022-03-15 10:11 | disposition home or self-care (01) ==
LOC: HO.LAB 10:10
PROVIDERS: PCP Internal Medicine; Visit Provider Internal Medicine
DX: I25.10 Atherosclerotic heart disease of native coronary artery without angina pectoris (principal)
CPT/HCPCS: 36415; 80048; 85027; 85610

== ENCOUNTER → 2022-03-21 12:51 | Outpatient (BNVA) | payer MEDICARE, SELFPAY | PROVIDERS: PCP Internal Medicine; Visit Provider Internal Medicine Gastroenterology | DX: Z71.2 Person consulting for explanation of examination or test findings (principal); R19.7 Diarrhea, unspecified | CPT/HCPCS: 99212 ==

== ENCOUNTER 2022-04-28 10:12 | Outpatient (REF) | payer MEDICARE, SELFPAY ==
[2022-04-28 10:41] LABS: Hematocrit 44.8 % (42.0-52.0); Hemoglobin 14.6 g/dl (14.0-18.0); Mean Corpuscular HGB Conc 32.6 g/dl (31.0-36.0); Mean Corpuscular Volume 98.2 fL (80.0-98.0); Mean Platelet Volume 9.7 fL (9.4-12.4); Platelet Count 365 X10*3/uL (160-400); Red Blood Count 4.56 X10*6/uL (4.60-5.80); Red Cell Distribution Width 14.3 % (11.0-16.0); White Blood Count 9.3 X10*3/uL (4.8-10.8)
[2022-04-28 10:48] LABS: INTERNATIONAL NORM RATIO 1.2 (0.9-1.1); Prothrombin Time 13.7 SEC (10.0-13.1)
[2022-04-28 11:20] LABS: Anion Gap 12 (12-20); Blood Urea Nitrogen 19 mg/dL (9-16); Calcium 9.8 mg/dL (8.4-10.2); Carbon Dioxide 27 mmol/L (22-29); Chloride 109 mmol/L (96-108); Estimated Glomerular Filt Rate 50; Glucose Random 87 mg/dL (60-115); Potassium 5.3 mmol/L (3.3-5.1); Sodium 143 mmol/L (135-145)
== END 2022-04-28 10:13 | disposition home or self-care (01) ==
LOC: HO.LAB 10:12
PROVIDERS: PCP Internal Medicine; Visit Provider Internal Medicine
DX: I25.10 Atherosclerotic heart disease of native coronary artery without angina pectoris (principal)
CPT/HCPCS: 36415; 80048; 85027; 85610

== ENCOUNTER → 2022-05-19 14:39 | Outpatient (BNVA) | payer MEDICARE, SELFPAY | PROVIDERS: PCP Internal Medicine; Referring Provider Internal Medicine; Visit Provider Nurse Practitioner Family | DX: I25.10 Atherosclerotic heart disease of native coronary artery without angina pectoris (principal); I72.9 Aneurysm of unspecified site; I48.92 Unspecified atrial flutter; I71.20 Thoracic aortic aneurysm, without rupture, unspecified; Z98.890 Other specified postprocedural states | CPT/HCPCS: 99212 ==

== ENCOUNTER 2022-05-19 16:14 | Outpatient (REF) | payer MEDICARE, OTHER, SELFPAY ==
--- NOTE | ~2022-05-19 | US_ITS ---
EXAMINATION: ARTERIAL DUPLEX OF THE RIGHT UPPER EXTREMITY. CLINICAL INFORMATION: Other specified postprocedure states. COMPARISON: None TECHNIQUE: Linear grayscale and duplex Doppler imaging of the right upper extremity was performed. FINDINGS: There is a pseudoaneurysm with to and fro flow visualized in the distal right radial artery measuring 1.9 x 1.3 x 1.7 cm. There are normal velocities and biphasic waveforms in the upper extremity arterial system. No evidence of occlusion or significant stenosis. There is a well-circumscribed subcutaneous slightly hyperechoic mass in the right upper arm measuring 2.1 x 1.2 x 2.4 cm. US/US arterial duplex UE RT IMPRESSION: 1.9 x 1.3 x 1.7 cm pseudoaneurysm arising from the left distal radial artery. 2.1 x 1.2 x 2.4 cm well-circumscribed hyperechoic subcutaneous mass in the right upper arm, nonspecific but may reflect a lipoma. Findings were communicated by the textile technologist to Dr. Lovelace at 4:45 PM
== END 2022-05-19 16:15 | disposition home or self-care (01) ==
LOC: HO.US 16:14
PROVIDERS: PCP Internal Medicine; Visit Provider Nurse Practitioner Family
DX: I72.1 Aneurysm of artery of upper extremity (principal); R60.9 Edema, unspecified; Z98.890 Other specified postprocedural states
CPT/HCPCS: 93931

== ENCOUNTER → 2022-05-24 12:44 | Outpatient (BNVA) | payer MEDICARE, SELFPAY | PROVIDERS: PCP Internal Medicine; Visit Provider Surgery Vascular Surgery | DX: I72.1 Aneurysm of artery of upper extremity (principal); Z98.890 Other specified postprocedural states | CPT/HCPCS: 99202 ==

== ENCOUNTER → 2022-05-30 10:05 | Day surgery (SDC) | payer MEDICARE, OTHER, SELFPAY ==
--- NOTE | 2022-05-27 09:53 | HO.ANESPROP2 ---
Documented by User: Noelle Tyler NP 05/27/22 11:08 HPI - Anesthesia Eval Consult details Narrative: 77yo M for Right Radial artery Pseudo Aneurysm Repair Pseudoaneurysm of insertion site s/p cardiac cath with RUBIN of LAD. On Plavix. Per Jahaira Lovelace NP, pt cannot interrupt plavix. OK to hold Eliquis preoperatively. Pt at least intermediate risk under anesthesia. Confirmed with Dr Mendoza that this plan is OK. Eliquis for afib s/p colo 03/2022 with [facility] Active Problems Active Problems: All Active Problems (Updated 05/24/22 @ 13:37 by Juan Pablo Mendoza MD) Pseudoaneurysm of artery of upper extremity (Acute) Pseudoaneurysm (Acute) S/P cardiac cath (Acute) Atherosclerotic cardiovascular disease (Acute) Poor historian (Acute) Anticoagulant long-term use (Acute) Heme positive stool (Acute) History of diverticulitis (Acute) History of colostomy reversal (Acute) Encounter for screening colonoscopy (Acute) Preoperative cardiovascular examination (Acute) Paroxysmal atrial flutter (Acute) Ascending aortic aneurysm (Acute) Coronary artery calcification seen on CT scan (Acute) PVD (peripheral vascular disease) (Acute) Past Medical History Medical History Anxiety Atherosclerotic cardiovascular disease COPD (chronic obstructive pulmonary disease) Depression Diverticulitis History of alcohol abuse History of atrial fibrillation History of COVID-19 Hypertension On anticoagulant therapy On beta jose at home PVD (peripheral vascular disease) Renal cell carcinoma Surgical History Surgical History (Updated 05/30/22 @ 10:33 by Ava Peterson RN) H/O cardiac catheterization History of colectomy S/P femoral-femoral bypass surgery History of Problems with Anesthesia: No Social History Social History Household Members: Spouse Housing: House Do you presently have visiting nurse or other home services: No Alcohol intake: never Patient Tobacco Use Status: Former Tobacco user Advance Directives: Yes Advance Directives on File: Yes Advance Directives Date on File: 06/09/21 Nutrition Risks: No Nutritional Risk service: Yes Current occupational status: retired Meds Allergies Allergy/AdvReac Type Severity Reaction Status Date / Time No Known Allergies Allergy Verified 05/30/22 10:33 [No Known Allergies*] Home Medications Medication Instructions Recorded Confirmed Last Taken Type clonazepam 1 mg tablet 1 tab PO BID PRN Anxiety 06/08/21 05/30/22 05/30/22 History dextroamphetamine-amphetamine 5 mg 1 tab PO DAILY 06/08/21 05/30/22 05/30/22 History tablet sertraline 50 mg tablet 1 tab PO DAILY 06/08/21 05/30/22 05/30/22 History docusate sodium 100 mg capsule 100 mg PO DAILY 08/17/21 05/30/22 Unknown History lisinopril 30 mg tablet 30 mg PO DAILY 08/17/21 05/30/22 05/30/22 History melatonin 3 mg tablet (Melatin) 1.5 mg PO BEDTIME 08/17/21 05/30/22 Unknown History multivit,Ca,min-iron 8 mg-folic tab PO 08/17/21 05/19/22 Unknown History acid 200 mcg-lycopene 600 mcg tablet (Centrum Men) quetiapine 25 mg tablet mg PO 08/17/21 05/19/22 Unknown History apixaban 5 mg tablet (Eliquis) 5 mg PO BID 01/27/22 05/30/22 05/27/22 History atorvastatin 80 mg tablet 80 mg PO DAILY 01/27/22 05/30/22 Unknown History furosemide 40 mg tablet 40 mg PO DAILY 01/27/22 05/30/22 Unknown History metoprolol tartrate 25 mg tablet 25 mg PO BIDWM 01/27/22 05/30/22 05/30/22 History clonazepam 0.5 mg tablet 0.5 mg PO BID PRN Anxiety 03/21/22 05/30/22 Unknown History aspirin 81 mg tablet,delayed 81 mg PO DAILY 05/24/22 05/30/22 05/27/22 History release cilostazol 50 mg tablet 50 mg PO BID 05/24/22 05/30/22 Unknown History Exam Exam Date and Time: May 27, 2022 0953 Pertinent Lab Results Pertinent Lab Results: Laboratory Tests 04/28/22 04/28/22 10:21 10:21 WBC 9.3 Hgb 14.6 Hct 44.8 Plt Count 365 D BUN 19 H Creatinine 1.38 Narrative Narrative: Per 05/2022 cardiac note Pt had no prior known hx of CAD. Had CTA of chest 06/08/21 showing coronary artery calcifications. No anginal symptoms reported. He had Nuclear stress test 02/28/22 showing old LAD territory transmural infarct with some omero infarct ischemia. Echo done 02/25/22 showed EF 55-60%, wall motion abnormalities could not be excluded. He has known risk factors of HLD, PVD with prior LE stenting and bypass. He underwent cardiac cath on 05/05/22 which did show significant LAD and D1 stenosis. RUBIN was placed. Cardiac cath 05/05/22 05/05/2022, left main mild disease, lad proximal 65% stenosis, 1st diagonal 100% stenosis, left circumflex minimal irregularities, RCA mid 50% stenosis, right PDA 50% stenosis, stent placed to the proximal LAD Assessment and Plan Assessment Anesthesia Assessment: Chart Reviewed Final Anesthetic Review History of Problems with Anesthesia: No Documented by User: Aisha Gamez MD 05/30/22 11:44 PMFSH Past Medical History Medical History Anxiety Atherosclerotic cardiovascular disease COPD (chronic obstructive pulmonary disease) Depression Diverticulitis History of alcohol abuse History of atrial fibrillation History of COVID-19 Hypertension On anticoagulant therapy On beta jose at home PVD (peripheral vascular disease) Renal cell carcinoma Family History Family history of problems with anesthesia: No Surgical History Surgical History (Updated 05/30/22 @ 10:33 by Ava Peterson RN) H/O cardiac catheterization History of colectomy S/P femoral-femoral bypass surgery Social History Social History Household Members: Spouse Housing: House Do you presently have visiting nurse or other home services: No Alcohol intake: never Patient Tobacco Use Status: Former Tobacco user Advance Directives: Yes Advance Directives on File: Yes Advance Directives Date on File: 06/09/21 Nutrition Risks: No Nutritional Risk service: Yes Current occupational status: retired Meds Allergies Allergy/AdvReac Type Severity Reaction Status Date / Time No Known Allergies Allergy Verified 05/30/22 10:33 [No Known Allergies*] Home Medications Medication Instructions Recorded Confirmed Last Taken Type clonazepam 1 mg tablet 1 tab PO BID PRN Anxiety 06/08/21 05/30/22 05/30/22 History dextroamphetamine-amphetamine 5 mg 1 tab PO DAILY 06/08/21 05/30/22 05/30/22 History tablet sertraline 50 mg tablet 1 tab PO DAILY 06/08/21 05/30/22 05/30/22 History docusate sodium 100 mg capsule 100 mg PO DAILY 08/17/21 05/30/22 Unknown History lisinopril 30 mg tablet 30 mg PO DAILY 08/17/21 05/30/22 05/30/22 History melatonin 3 mg tablet (Melatin) 1.5 mg PO BEDTIME 08/17/21 05/30/22 Unknown History multivit,Ca,min-iron 8 mg-folic tab PO 08/17/21 05/19/22 Unknown History acid 200 mcg-lycopene 600 mcg tablet (Centrum Men) quetiapine 25 mg tablet mg PO 08/17/21 05/19/22 Unknown History apixaban 5 mg tablet (Eliquis) 5 mg PO BID 01/27/22 05/30/22 05/27/22 History atorvastatin 80 mg tablet 80 mg PO DAILY 01/27/22 05/30/22 Unknown History furosemide 40 mg tablet 40 mg PO DAILY 01/27/22 05/30/22 Unknown History metoprolol tartrate 25 mg tablet 25 mg PO BIDWM 01/27/22 05/30/22 05/30/22 History clonazepam 0.5 mg tablet 0.5 mg PO BID PRN Anxiety 03/21/22 05/30/22 Unknown History aspirin 81 mg tablet,delayed 81 mg PO DAILY 05/24/22 05/30/22 05/27/22 History release cilostazol 50 mg tablet 50 mg PO BID 05/24/22 05/30/22 Unknown History Exam Airway Mallampati Class: II TM Dist: >3cm Denture: Upper and Lower Heart: rr Lungs: cta Other: unable to take out dentures Assessment and Plan Assessment Anesthesia Assessment: Anesthesia Plan Discussed Final Anesthetic Review Family History of Problems with Anesthesia: No NPO: Yes ASA Class: III Final Preanesthetic Review: Meds/Allgs Chart Reviewed and Anes Risks/Benef Reviewed Patient Risk: Intermediate Procedure Risk: Intermediate Anesthetic Plan Anesthetic Plan: GA and Agree w/ Assess. and Plan Disposition: Standard PACU
[2022-05-30] VITALS (10 sets, daily range): BP systolic 129–174; BP diastolic 75–87; PULSE 58–78; RESP 16–18; TEMP 36.1–36.8; O2SAT 93–99; BMI 33.0
[2022-05-30 10:51] LABS: Hematocrit 48.3 % (42.0-52.0); Hemoglobin 15.6 g/dl (14.0-18.0); Mean Corpuscular HGB Conc 32.3 g/dl (31.0-36.0); Mean Platelet Volume 9.5 fL (9.4-12.4); Platelet Count 281 X10*3/uL (160-400); Red Blood Count 4.88 X10*6/uL (4.60-5.80); Red Cell Distribution Width 14.2 % (11.0-16.0); White Blood Count 8.1 X10*3/uL (4.8-10.8)
[2022-05-30 10:53] LABS: INTERNATIONAL NORM RATIO 0.9 (0.9-1.1); Prothrombin Time 10.4 SEC (10.0-13.1)
[2022-05-30 10:56] LABS: Partial Thromboplastin Time 33.9 SEC (26.0-36.4)
[2022-05-30 11:26] LABS: Anion Gap 13 (12-20); Blood Urea Nitrogen 24 mg/dL (9-16); Calcium 9.6 mg/dL (8.4-10.2); Carbon Dioxide 29 mmol/L (22-29); Chloride 104 mmol/L (96-108); Creatinine Clr Calc Pharmacy 67.3; Estimated Glomerular Filt Rate 56; Glucose Random 100 mg/dL (60-115); Potassium 4.7 mmol/L (3.3-5.1); Sodium 141 mmol/L (135-145)
--- NOTE | 2022-05-30 11:50 | MHC.SHP ---
Pre-Procedural Eval Section A Date of Service: 05/30/22 The patient is an INPATIENT: No Changes since office visit: Yes Patient answered all questions The History & Physical has been completed within 30 days and I have reviewed it.: No Section B Chief Complaint: Aneurysm of artery of upper extremity Allergies: Allergies Allergy/AdvReac Type Severity Reaction Status Date / Time No Known Allergies Allergy Verified 05/30/22 10:33 [No Known Allergies*] Plan I have reviewed the history and physical and performed a pertinent physical examination on my patient. No changes have occurred unless specified. Time Spent With Patient Time: Total time managing care of this patient today ____ minutes.
--- NOTE | 2022-05-30 12:09 | PC.NURSE ---
Difficult IV insertion. Attempt x 1 by abdirahman cazares. attempt x 3 by darci leigh rn. insertion by dr. hall
[2022-05-30] MEDS: fentaNYL citrate/PF 100 MCG/2 ML VIAL 25 MCG IVPUSH ×2 (13:29→13:41)
[2022-05-30] MEDS: oxyCODONE HCl Immed Release 5 MG TABLET PO (13:30)
--- NOTE | 2022-05-30 13:34 | W.PM.OPN ---
Operative Note Operative Note Date of Service: 05/30/22 Narrative: Operative note by [facility] Preoperative diagnosis: Right radial artery pseudoaneurysm Postoperative diagnosis: Same Procedure: Repair of right radial artery pseudoaneurysm Surgeon:Juan Pablo Mendoza M.D. Director Of Special Services: Rachel Anesthesia: General Specimens: 1 Drains: None Estimated blood loss: Minimal Indications: Very pleasant 77-year-old gentleman had undergone a previous right radial artery in hearing happened not a cardiac catheterization. On postop follow-up he developed a right radial pseudoaneurysm and was referred to us. He now presents for repair. The patient has signed the informed consent after reviewing risks, complications, benefits, and alternatives previously discussed with the patient. The patient was given the opportunity to ask any additional questions or voice any concerns. All questions were answered to the patient's satisfaction. Procedure in detail: Patient was brought to the operating room prior to which a time-out was called for patient identification site verification. Right arm was prepped and draped in standard surgical fashion. We created a of her 4-5 cm incision over the radial artery and pseudoaneurysm. We dissected around the radial artery up and over the pseudoaneurysm. The pseudoaneurysm was dissected clear. Once this was accomplished we got proximal and distal control of the radial artery as well. We excised this pseudoaneurysm its entirety inclusive Ng the clot and sac. Once this was all accomplished we irrigated the wound out thoroughly. We flushed this area clear. Then instilled localized heparin ice daily in. Once this was done we oversewed the opening or puncture site has with a 6 0 Prolene. An additional smaller site was closed over with a 7 0 Prolene stitch. Wound was evacuated. Deep layer was reapproximated using 2 0 poly Sorb her superficial skin layer was closed with a 4-0 Monocryl in a running manner. Exofin was used as a sterile dressing. Patient had palpable radial pulse and hand was warm with good capillary refill postprocedure. This note is constructed using voice recognition software. While every effort has been made to ensure accuracy, panama hat smearer errors may have been included. Thank you for allowing me to participate in the care of your patient. Yours sincerely, Juan Pablo Mendoza MD, FACS, R.P.V.I.
== END | disposition home or self-care (01) ==
PROVIDERS: PCP Internal Medicine; Visit Provider Surgery Vascular Surgery
PROC: (CPT 35045; principal; 2022-05-30 12:10)
DX: I72.1 Aneurysm of artery of upper extremity (principal); Z79.01 Long term (current) use of anticoagulants
CPT/HCPCS: 35045; 36415; 80048; 85027; 85610; 85730; 86850; 86900; 86901; 88304; J0690; J1100; J1643; J2405; J2795; J3010

== ENCOUNTER → 2022-06-14 14:49 | Outpatient (BNVA) | payer MEDICARE, SELFPAY | PROVIDERS: PCP Internal Medicine; Visit Provider Surgery Vascular Surgery | DX: I72.1 Aneurysm of artery of upper extremity (principal); Z98.890 Other specified postprocedural states | CPT/HCPCS: 99212 ==

== ENCOUNTER → 2022-07-06 12:57 | Outpatient (BNVA) | payer MEDICARE, SELFPAY | PROVIDERS: PCP Internal Medicine; Visit Provider Internal Medicine | DX: I25.10 Atherosclerotic heart disease of native coronary artery without angina pectoris (principal); I48.92 Unspecified atrial flutter; I71.21 Aneurysm of the ascending aorta, without rupture; R20.0 Anesthesia of skin; Z79.01 Long term (current) use of anticoagulants; Z79.899 Other long term (current) drug therapy | CPT/HCPCS: 99212 ==

== ENCOUNTER 2022-10-07 09:51 | Emergency (ER) | payer MEDICARE, OTHER, SELFPAY ==
--- NOTE | ~2022-10-07 | CT_ITS ---
EXAMINATION: CT ABDOMEN AND PELVIS WITHOUT CONTRAST CLINICAL INFORMATION: Left back/flank pain. History of renal cell cancer. COMPARISON: Previous CT of the abdomen and pelvis June 2021 TECHNIQUE: Multidetector volumetric imaging was performed from the superior aspect of the liver through the pubic symphysis. Sagittal and coronal reformatted images were obtained on the technologist's workstation. This CT examination was performed using dose optimization techniques as appropriate, variously including the following: *Automated exposure control *Adjustment of mA and/or kV according to patient size (this includes techniques or standardized protocols for targeted exams where dose is matched to indication/reason for exam; i.e. extremities or head) *Use of iterative reconstruction technique DLP: 758 mGy-cm FINDINGS: LUNG BASES: There is subsegmental atelectasis or scarring at the lung bases. LIVER, GALLBLADDER, AND BILIARY TREE: The liver is normal in size, shape, and attenuation. There are small liver cysts that are stable. No other focal liver lesion. No biliary duct dilatation. Small gallstones in the gallbladder. The gallbladder is otherwise normal. PANCREAS: Unremarkable. SPLEEN: Unremarkable. ADRENAL GLANDS: 1 cm right adrenal nodule. This is stable from previous exam probably represents a benign lipid rich adenoma. The left adrenal gland is normal. KIDNEYS AND URETERS: There are stable postsurgical changes to the lower pole of the left kidney. There is a small 2 mm stone in the upper pole. No hydronephrosis, ureteral dilatation or ureteral stone. 1 x 1.5 cm low-attenuation lesion in the lower pole the right kidney and 0.7 cm lesion in the lower pole the left kidney found to represent cysts on prior exam. No imaging follow-up recommended. There is abnormal contour to the mid to lower lateral left kidney 1.2 cm lesion in the lateral lower pole of the left kidney. Axial image 25 series 3, sagittal reconstructed image 38 and coronal reconstructed image 80 series 7. This likely represents a complex cyst and is similar to prior exam. BLADDER: The prostate gland is enlarged and protrudes into the base of the bladder. The bladder is otherwise unremarkable. GASTROINTESTINAL TRACT: Diverticulosis of the colon. No evidence of diverticulitis. The small and large bowel are otherwise unremarkable. The appendix is unremarkable. ABDOMINAL WALL: Evidence of previous ventral hernia repair with mesh. No recurrent hernia. LYMPH NODES: Normal. VASCULAR: There is evidence of atherosclerotic disease. The left iliac arteries appear very small. There is a stent in the right external iliac artery. There is a femorofemoral bypass graft. PELVIC VISCERA: Prostate gland is enlarged and protrudes into the base of the bladder. Prostate gland measures 4.5 x 8.5 cm in AP and transverse dimension. OSSEOUS STRUCTURES: Degenerative changes of the spine and hip joints. CT/CT abdomen pelvis wo IV con IMPRESSION: Stable postsurgical changes to the left kidney. Small nonobstructing left renal stone. No hydronephrosis or ureteral dilatation or ureteral stone. Probable 1.2 cm complex cyst in the lateral mid to lower pole the left kidney. This could be confirmed with ultrasound. Small bilateral renal simple cysts. Enlarged prostate gland that protrudes into the base of bladder. Mild diverticulosis of the colon. No evidence of diverticulitis. Liver cysts. Gallstone. Severe atherosclerotic disease. Fleischner guidelines were followed.
[2022-10-07 09:56] VITALS: BP 128/66; PULSE 71; RESP 19; O2SAT 95; BMI 32.5
[2022-10-07 10:28] VITALS: BP 129/64; PULSE 62; RESP 16; TEMP 36.6; O2SAT 96
--- NOTE | 2022-10-07 10:30 | PC.NURSE ---
pt AOx4, reporting 7/10 left flank pain x1 month. Pt has history of kidney cancer. argon tester on, vitals stable
--- NOTE | 2022-10-07 11:10 | ED_ITS ---
HPI - General Adult General Chief complaint: General Medical Stated complaint: lower back pain Time Seen by Provider: 10/07/22 11:03 Source: patient, RN notes reviewed and old records reviewed Mode of arrival: ambulatory History of Present Illness HPI narrative: 77-year-old male with a past medical history of anxiety, ACS, COPD, depression, diverticulitis, HTN, PVD, renal cell carcinoma, presenting to the ED complaining of intermittent left flank/low back pain x 1 month. States pain worse with bending. Denies known injury/heavy lifting. Also reports urinary frequency. Denies other associated symptoms including hematuria, dysuria, abdominal pain, nausea/vomiting, diarrhea, CP/SOB, incontinence/retention, fall Onset (ago): month(s) Related Data Home Medications Medication Instructions Recorded Confirmed dextroamphetamine-amphetamine 5 mg 1 tab PO DAILY 06/08/21 07/06/22 tablet docusate sodium 100 mg capsule 100 mg PO DAILY 08/17/21 07/06/22 lisinopril 30 mg tablet 30 mg PO DAILY 08/17/21 07/06/22 melatonin 3 mg tablet (Melatin) 1.5 mg PO BEDTIME 08/17/21 07/06/22 multivit,Ca,min-iron 8 mg-folic tab PO 08/17/21 07/06/22 acid 200 mcg-lycopene 600 mcg tablet (Centrum Men) apixaban 5 mg tablet (Eliquis) 5 mg PO BID 01/27/22 07/06/22 atorvastatin 80 mg tablet 80 mg PO DAILY 01/27/22 07/06/22 furosemide 40 mg tablet 40 mg PO DAILY 01/27/22 07/06/22 metoprolol tartrate 25 mg tablet 25 mg PO BIDWM 01/27/22 07/06/22 clonazepam 0.5 mg tablet 0.5 mg PO BID PRN Anxiety 03/21/22 07/06/22 quetiapine 25 mg tablet 25 mg PO 07/06/22 07/06/22 sertraline 50 mg tablet 50 mg PO DAILY 07/06/22 07/06/22 Previous Rx's Medication Instructions Recorded clopidogrel 75 mg tablet (Plavix) 75 mg PO DAILY #90 tabs 05/20/22 acetaminophen 500 mg tablet 500 mg PO Q6H PRN fever or pain 10/07/22 (Tylenol Extra Strength) #14 tabs cyclobenzaprine 5 mg tablet 5 mg PO Q8H PRN pain (scale score 10/07/22 7-10) 5 days #14 tabs lidocaine 5 % topical patch 1 patch topical DAILY PRN pain #30 10/07/22 (Lidoderm) ea naproxen 500 mg tablet 500 mg PO BID PRN pain 10 days #20 10/07/22 tabs Allergies Allergy/AdvReac Type Severity Reaction Status Date / Time No Known Allergies Allergy Verified 10/07/22 09:56 [No Known Allergies*] Review of Systems Review of Systems: Constitutional: No Fever, No Chills, No Fatigue, No Malaise ENT/Mouth: No Hearing loss, No Ear Pain, No Nasal Congestion, No sore throat, No Rhinorrhea, No Swallowing Difficulty Cardiovascular: No Chest Pain, No SOB, No Edema, No Palpitations Respiratory: No Cough, No Sputum, No Dyspnea Gastrointestinal: No Nausea, No Vomiting, No Diarrhea, No Constipation, No Abdominal pain Genitourinary: No irregular bleeding, No Dysuria, + Urinary Frequency, No Hematuria, No Urinary Incontinence/retention, No Urgency, + Flank Pain, No Urinary Flow Changes, No Hesitancy Musculoskeletal: + joint pain, No Myalgias, No Joint Swelling Skin: No Skin Lesions, No rash Neuro: No Weakness, No Numbness, No Paresthesias, No Headache Yes all other systems are reviewed and are negative Constitutional: Constitutional: Reports as per [facility] Past Medical History Attestation statement: The following information was validated with the patient. Source: old records reviewed Medical History Anxiety Atherosclerotic cardiovascular disease COPD (chronic obstructive pulmonary disease) Depression Diverticulitis History of alcohol abuse History of atrial fibrillation History of COVID-19 Hypertension On anticoagulant therapy On beta jose at home PVD (peripheral vascular disease) Renal cell carcinoma Surgical History H/O cardiac catheterization History of colectomy S/P femoral-femoral bypass surgery Social History Social History Household Members: Spouse Housing: House Do you presently have visiting nurse or other home services: No Alcohol intake: never Patient Tobacco Use Status: Former Tobacco user Advance Directives: Yes Advance Directives on File: Yes Advance Directives Date on File: 06/09/21 service: Yes Current occupational status: retired Physical Exam ED Vital Signs: Vital Signs - 24 hr 10/07/22 09:56 10/07/22 10:28 10/07/22 11:23 Temperature 97.8 F 97.9 F Pulse Rate 71 62 58 Respiratory Rate 19 16 19 Blood Pressure 128/66 129/64 124/58 L Pulse Oximetry 95 96 93 Oxygen Delivery Method Room Air Room Air Room Air 10/07/22 13:50 Temperature Pulse Rate 66 Respiratory Rate 18 Blood Pressure 152/75 H Pulse Oximetry 97 Oxygen Delivery Method Room Air BMI result Body Mass Index 32.5 Const General: cooperative, healthy appearing and no acute distress Orientation/consciousness: patient oriented x3 Limitations: no limitations HENMT Head: Yes normal to inspection and Yes atraumatic Ears: hearing grossly normal bilaterally General nose exam: Normal external nose present Face and sinus: Yes normal facial exam Eyes General: appearance normal, both eyes and all related structures EOM: EOMs intact bilaterally Neck Neck: Yes normal visual inspection and Yes no meningeal signs Resp Effort & Inspection: normal respiratory effort and no respiratory distress Auscultation: clear to auscultation bilaterally Cardio Rate: regular rate Heart sounds: S1 normal heart sound present and S2 normal heart sound present GI Other: Old surgical scars noted Inspection: Yes normal to inspection Palpation (GI): Soft to palpation, nontender, no guarding and not rigid Other: + mild left lower lumbar MSK tenderness to palpation General: Yes no CVA tenderness Back/Spine/Pelvis Other: No midline cervical/thoracic/lumbar spinous tenderness/step-off or deformity Back: no CVA tenderness Skin Rashes: no rashes Wounds: no wounds Neuro General: patient oriented x3, tone normal and no meningeal signs Gait exam (Neuro): Normal gait present Extrem General: Yes normal to inspection, Yes no pedal edema and Yes no calf tenderness Course Course Course Narrative: -1336--mild leukocytosis 11.4. H&H stable. Chronically elevated BUN, labs otherwise reassuring -UA not infected CT abdomen pelvis wo IV con IMPRESSION: Stable postsurgical changes to the left kidney. Small nonobstructing left renal stone. No hydronephrosis or ureteral dilatation or ureteral stone. Probable 1.2 cm complex cyst in the lateral mid to lower pole the left kidney. This could be confirmed with ultrasound. Small bilateral renal simple cysts. Enlarged prostate gland that protrudes into the base of bladder. Mild diverticulosis of the colon. No evidence of diverticulitis. Liver cysts. Gallstone. Severe atherosclerotic disease. ? Fleischner guidelines were followed. Results discussed with patient including worrisome signs and symptoms and strict return precautions, and when to return to the emergency department. They verbalized understanding and feel safe for discharge at this time. Medications Administered Discontinued Medications Generic Name Dose Route Start Last Admin Trade Name Freq PRN Reason Stop Dose Admin Cyclobenzaprine HCl 10 mg 10/07/22 13:39 10/07/22 14:04 Cyclobenzaprine Hcl 10 Mg Tablet PO 10/07/22 13:40 Not Given ONCE ONE Lidocaine 1 patch 10/07/22 13:39 10/07/22 14:05 Lidocaine 4 % Patch Adh..Patch TRANSDERMA 10/07/22 13:40 Not Given ONCE ONE Protocol Medical Decision Making Medical Decision Making MDM Narrative: 77-year-old male with a past medical history of anxiety, ACS, COPD, depression, diverticulitis, HTN, PVD, renal cell carcinoma, presenting to the ED complaining of intermittent left flank/low back pain x 1 month. On exam vital signs stable, NAD, nontoxic appearing have abdomen soft/nontender, no CVAT, left lumbar MSK tenderness noted, no midline spinous tenderness. Concern for MSK pain/strain vs renal stone. Rule out UTI/pyelo. Low suspicion for cauda equina/cord compression, fracture, epidural abscess, intra-abdominal pathology. No rash Plan: Labs, UA, CT AP, re-evaluate Please refer to course for remaining clinical decision making, interpretation of labs/imaging results, and discussions with consultants and/or family members. Differential Diagnosis Differential Diagnoses: The differential diagnosis associated with the pres entation includes As above Admission/Observation Consideration of admission/observation: Escalation of care including admission /observation considered Lab Data [facility] Lab Attestation statement: I reviewed the patient's lab results. 10/07/22 11:39 10/07/22 11:39 Labs: Lab Results 10/07/22 10/07/22 10/07/22 Range/Units 11:39 11:39 11:39 WBC 11.4 H (4.8-10.8) X10*3/uL RBC 4.47 L (4.60-5.80) X10*6/uL Hgb 14.5 (14.0-18.0) g/dl Hct 43.9 (42.0-52.0) % MCV 98.2 H (80.0-98.0) fL MCH 32.4 (27.0-33.0) pg MCHC 33.0 (31.0-36.0) g/dl RDW 14.0 (11.0-16.0) % Plt Count 237 (160-400) X10*3/uL MPV 10.2 (9.4-12.4) fL Immature Gran % (Auto) 0.4 (0.0-0.4) % Neut % (Auto) 77.7 H (45-73) % Lymph % (Auto) 10.4 L (20-40) % [place] % (Auto) 10.3 (2-11) % Eos % (Auto) 0.8 (0-4) % Baso % (Auto) 0.4 (0-2) % Lymph # (Auto) 1.2 (1.2-4.9) X10*3/uL [place] # (Auto) 1.2 (0.1-1.2) X10*3/uL Eos # (Auto) 0.1 (0.0-0.4) X10*3/uL Baso # (Auto) 0.0 (0.0-0.2) X10*3/uL Abs Immat Gran (auto) 0.04 H (0.00-0.03) X10*3/uL Absolute Neuts (auto) 8.9 H (2.0-8.3) x10*3/uL Absolute Nucleated RBC 0.000 (0.0-0.012) X10*3/uL Nucleated RBC % (auto) 0.0 (0.0-0.2) /100WBC Sodium 138 (135-145) mmol/L Potassium 4.3 (3.3-5.1) mmol/L Chloride 107 (96-108) mmol/L Carbon Dioxide 23 (22-29) mmol/L Anion Gap 12 (12-20) BUN 28 H (9-16) mg/dL Creatinine 1.34 (0.5-1.4) mg/dL Estim Creat Clear Calc 60.7 Estimated GFR 52 Random Glucose 106 (60-115) mg/dL Calcium 8.9 D (8.4-10.2) mg/dL Magnesium 2.2 (1.6-2.6) mg/dL Total Bilirubin 0.5 (0.0-1.0) mg/dL Direct Bilirubin 0.2 (0.0-0.5) mg/dL AST 13 (5-37) U/L ALT 11 (0-40) U/L Alkaline Phosphatase 107 (39-117) U/L Total Protein 6.3 L (6.5-8.0) g/dL Albumin 3.7 (3.5-5.0) g/dL Lipase 35 (8-78) U/L Urine Color Yellow Urine Appearance Clear Urine pH 5.5 (5.0-9.0) Ur Specific [place] 1.010 (1.005-1.025) Urine Protein Negative (Neg-Trace) mg/dL Urine Glucose (UA) Negative (Negative) mg/dL Urine Ketones Negative (Negative) mg/dL Urine Blood Negative (Negative) Urine Nitrite Negative (Negative) Ur Leukocyte Esterase Negative (Negative) Radiology Impression Discussion of test interpretation with radiology: I have reviewed the r adiologist's reading. External Record Review External record reviewed: Inpatient record, Office record, Outpatient record, Prior outpatient labs, Prior outpatient radiology, Primary care record and Outside ED record Tests considered The following testing was considered but not selected: As above Discharge Plan Discharge Clinical Impression: Low back pain, Urinary frequency, Kidney cysts, Benign prostatic hyperplasia Patient Disposition: Home, Self-Care Instructions: Enlarged Prostate (BPH) (ED), Kidney Cyst (ED), Urinary Urgency and Frequency (DC) Additional Instructions: Your blood work was reassuring. Her CT scan shows a small nonobstructing kidney stone as well as a probable complex cyst on your left kidney. Your prostate is enlarged You should follow-up with Nephrology and Urology Please call your doctor Is symptoms persist or worsen return to the emergency department Your back pain is likely musculoskeletal Flexeril is a muscle relaxer, take at night as it makes you drowsy, do not drive, drink alcohol, or operate machinery while taking it Naproxen as an anti-inflammatory / pain medication, take with food Lidoderm patches are numbing patches, apply to painful area In addition take Tylenol at home If symptoms persist or worsen, pain becomes unbearable, you developed urinary retention or incontinence, or weakness return to the ED Prescriptions: New lidocaine [Lidoderm] 5 % adhesive patch,medicated 1 patch topical DAILY MDD remove after 12 hours PRN (Reason: pain) Qty: 30 0RF Rx Instructions: leave on most painful area for up to 12 hrs cyclobenzaprine 5 mg tablet 5 mg PO Q8H PRN (Reason: pain (scale score 7-10)) 5 Days Qty: 14 0RF acetaminophen [Tylenol Extra Strength] 500 mg tablet 500 mg PO Q6H PRN (Reason: fever or pain) Qty: 14 0RF naproxen 500 mg tablet 500 mg PO BID PRN (Reason: pain) 10 Days Qty: 20 0RF No Action clopidogrel [Plavix] 75 mg tablet 75 mg PO DAILY Qty: 90 3RF dextroamphetamine-amphetamine 5 mg tablet 1 tab PO DAILY atorvastatin 80 mg tablet 80 mg PO DAILY Eliquis 5 mg tablet 5 mg PO BID furosemide 40 mg tablet 40 mg PO DAILY sertraline 50 mg tablet 50 mg PO DAILY clonazepam 0.5 mg tablet 0.5 mg PO BID PRN (Reason: Anxiety) metoprolol tartrate 25 mg tablet 25 mg PO BIDWM lisinopril 30 mg tablet 30 mg PO DAILY melatonin [Melatin] 3 mg tablet 1.5 mg PO BEDTIME docusate sodium 100 mg capsule 100 mg PO DAILY Centrum Men 8 mg iron- 200 mcg-600 mcg tablet PO quetiapine 25 mg tablet 25 mg PO Referrals: [facility] [Provider Group] Eyad Lee MD [Physician] - Interventions: ED Discharge Assessment Last Done: 10/07/22 14:18 Discharge Date/Time: 10/07/22 14:19
[2022-10-07 11:23] VITALS: BP 124/58; PULSE 58; RESP 19; TEMP 36.6; O2SAT 93
[2022-10-07 11:46] LABS: MANUAL DIFF FLAG NO
[2022-10-07 11:50] LABS: Appearance Urine Clear; Color Urine Yellow; Glucose Urine UA Negative (Negative); Leukocyte Esterase Urine Negative (Negative); Nitrite Urine Negative (Negative); PH 5.5 (5.0-9.0); Urine Blood Negative (Negative); Urine Ketones Negative (Negative); Urine Protein Negative (Neg-Trace)
[2022-10-07 11:51] LABS: Basophils Percent Auto 0.4 % (0-2); Eosinophils Absolute Auto 0.1 X10*3/uL (0.0-0.4); Eosinophils Percent Auto 0.8 % (0-4); Hematocrit 43.9 % (42.0-52.0); Hemoglobin 14.5 g/dl (14.0-18.0); Imm Gran Abs Auto 0.04 X10*3/uL (0.00-0.03); Imm Gran Pct Auto 0.4 % (0.0-0.4); Lymphocytes Absolute Auto 1.2 X10*3/uL (1.2-4.9); Lymphocytes Percent Auto 10.4 % (20-40); Mean Corpuscular Hemoglobin 32.4 pg (27.0-33.0); Mean Corpuscular Volume 98.2 fL (80.0-98.0); Mean Platelet Volume 10.2 fL (9.4-12.4); Monocytes Absolute Auto 1.2 X10*3/uL (0.1-1.2); Monocytes Percent Auto 10.3 % (2-11); Neutrophils Absolute Auto 8.9 x10*3/uL (2.0-8.3); Neutrophils Percent Auto 77.7 % (45-73); Platelet Count 237 X10*3/uL (160-400); Red Blood Count 4.47 X10*6/uL (4.60-5.80); White Blood Count 11.4 X10*3/uL (4.8-10.8)
[2022-10-07 12:20] LABS: Alanine Aminotransferase 11 U/L (0-40); Albumin Level 3.7 g/dL (3.5-5.0); Alkaline Phosphatase 107 U/L (39-117); Anion Gap 12 (12-20); Aspartate Amino Transferase 13 U/L (5-37); Bilirubin Direct 0.2 mg/dL (0.0-0.5); Bilirubin Total 0.5 mg/dL (0.0-1.0); Blood Urea Nitrogen 28 mg/dL (9-16); Calcium 8.9 mg/dL (8.4-10.2); Carbon Dioxide 23 mmol/L (22-29); Chloride 107 mmol/L (96-108); Creatinine Clr Calc Pharmacy 60.7; Estimated Glomerular Filt Rate 52; Glucose Random 106 mg/dL (60-115); Lipase 35 U/L (8-78); Magnesium 2.2 mg/dL (1.6-2.6); Potassium 4.3 mmol/L (3.3-5.1); Sodium 138 mmol/L (135-145); Total Protein 6.3 g/dL (6.5-8.0)
[2022-10-07 13:50] VITALS: BP 152/75; PULSE 66; RESP 18; O2SAT 97
--- NOTE | 2022-10-07 14:16 | PC.NURSE ---
pt refused flexeril and lido patch saying that they dont work. PA aware. pt discharged home and asked to follow up with referrals, return with increasing symptoms.
== END 2022-10-07 14:19 | disposition home or self-care (01) ==
PROVIDERS: Physician Assistant; Emergency Provider Internal Medicine
DX: M54.50 Low back pain, unspecified (principal); N39.0 Urinary tract infection, site not specified; N40.0 Benign prostatic hyperplasia without lower urinary tract symptoms; R10.2 Pelvic and perineal pain; Z79.899 Other long term (current) drug therapy
CPT/HCPCS: 36415; 74176; 80048; 80076; 81003; 83690; 83735; 85025; 99284

== ENCOUNTER → 2022-10-24 12:00 | Outpatient (BNVA) | payer MEDICARE, SELFPAY | PROVIDERS: Visit Provider Nurse Practitioner Family | DX: N40.0 Benign prostatic hyperplasia without lower urinary tract symptoms (principal); N28.1 Cyst of kidney, acquired; R39.9 Unspecified symptoms and signs involving the genitourinary system; Z85.528 Personal history of other malignant neoplasm of kidney | CPT/HCPCS: 51798; 99202 ==

== ENCOUNTER → 2022-11-02 12:54 | Outpatient (BNVA) | payer MEDICARE, SELFPAY | PROVIDERS: PCP Internal Medicine; Visit Provider Psychiatry & Neurology Neurology | DX: G62.9 Polyneuropathy, unspecified (principal) | CPT/HCPCS: 99202 ==

== ENCOUNTER 2022-12-14 10:02 | Outpatient (REF) | payer MEDICARE, OTHER, SELFPAY ==
--- NOTE | 2022-12-14 10:04 | EMG_ITS ---
Please see scanned EMG / Nerve Conduction Report. MTDD
== END 2022-12-14 10:03 | disposition home or self-care (01) ==
LOC: HO.NEURO 10:02
PROVIDERS: PCP Internal Medicine; Visit Provider Psychiatry & Neurology Neurology
DX: G62.9 Polyneuropathy, unspecified (principal); R20.0 Anesthesia of skin
CPT/HCPCS: 95860; 95885; 95907; 95913

== ENCOUNTER 2022-12-26 10:56 | Outpatient (REF) | payer MEDICARE, SELFPAY ==
[2022-12-26 11:12] LABS: MANUAL DIFF FLAG NO
[2022-12-26 11:41] LABS: Basophils Percent Auto 0.5 % (0-2); Eosinophils Absolute Auto 0.2 X10*3/uL (0.0-0.4); Eosinophils Percent Auto 2.4 % (0-4); Hematocrit 48.8 % (42.0-52.0); Hemoglobin 15.7 g/dl (14.0-18.0); Imm Gran Abs Auto 0.02 X10*3/uL (0.00-0.03); Imm Gran Pct Auto 0.3 % (0.0-0.4); Lymphocytes Absolute Auto 1.4 X10*3/uL (1.2-4.9); Lymphocytes Percent Auto 18.9 % (20-40); Mean Corpuscular HGB Conc 32.2 g/dl (31.0-36.0); Mean Corpuscular Hemoglobin 32.2 pg (27.0-33.0); Mean Platelet Volume 10.1 fL (9.4-12.4); Monocytes Absolute Auto 0.8 X10*3/uL (0.1-1.2); Monocytes Percent Auto 10.8 % (2-11); Neutrophils Absolute Auto 5.1 x10*3/uL (2.0-8.3); Neutrophils Percent Auto 67.1 % (45-73); Platelet Count 280 X10*3/uL (160-400); Red Blood Count 4.88 X10*6/uL (4.60-5.80); Red Cell Distribution Width 13.4 % (11.0-16.0); White Blood Count 7.6 X10*3/uL (4.8-10.8)
[2022-12-26 12:28] LABS: Erythrocyte Sedimentation Rate 10 MM/HR (0-15)
[2022-12-26 13:08] LABS: Alanine Aminotransferase 17 U/L (0-40); Albumin Level 4.3 g/dL (3.5-5.0); Alkaline Phosphatase 99 U/L (39-117); Anion Gap 12 (12-20); Aspartate Amino Transferase 16 U/L (5-37); Bilirubin Total 0.5 mg/dL (0.0-1.0); Blood Urea Nitrogen 30 mg/dL (9-16); Calcium 9.9 mg/dL (8.4-10.2); Carbon Dioxide 26 mmol/L (22-29); Chloride 107 mmol/L (96-108); Estimated Glomerular Filt Rate 45; Glucose Random 87 mg/dL (60-115); Potassium 4.9 mmol/L (3.3-5.1); Sodium 140 mmol/L (135-145); Total Protein 7.5 g/dL (6.5-8.0)
[2022-12-26 13:23] LABS: TSH reflex Free T4 1.14 uIU/mL (0.32-4.0)
[2022-12-26 13:32] LABS: Folate 12.7 ng/mL (> or = 4.0); Vitamin B12 633 pg/mL (200-900)
[2022-12-30 11:59] LABS: Anti Nuclear Antibody Screen POSITIVE (NEGATIVE); Anti Nuclear Antibody Titer 1:40 titer
== END 2022-12-26 10:57 | disposition home or self-care (01) ==
LOC: HO.LAB 10:56
PROVIDERS: PCP Internal Medicine; Visit Provider Psychiatry & Neurology Neurology
DX: G62.9 Polyneuropathy, unspecified (principal)
CPT/HCPCS: 36415; 80053; 82607; 82746; 84443; 85025; 85652; 86038; 86039

== ENCOUNTER 2022-12-28 14:39 | Outpatient (AMB) | payer MEDICARE, SELFPAY ==
[2022-12-28 14:40] VITALS: BP 136/72; PULSE 71; O2SAT 97; BMI 33.0
--- NOTE | 2022-12-28 14:40 | A.OFFVIS_ITS ---
Intake Vital Signs 12/28/22 14:40 Height 6 ft Weight 243 lb 8 oz BMI 33.0 BP 136/72 Blood Pressure Location Lt brachial Position Sitting Pulse 71 Pulse Source Pulse Oximeter Pulse Oximetry (%) 97 Oxygen Delivery Method Room Air Intake Visit Reasons: EMG results(per MD)-confirmed Intake Note: Pt present in office for EMG results. Hvac Controls Technician Required: No Allergies No Known Allergies [No Known Allergies*] Allergy (Verified 12/28/22 14:44) Medication List - Last Reconciled 12/28/22 by Marybel Mcpherson MD apixaban (Eliquis) 5 mg PO BID atorvastatin 80 mg PO DAILY cilostazol 50 mg PO BID dextroamphetamine-amphetamine 7.5 mg 1 tab PO DAILY docusate sodium 100 mg PO DAILY furosemide 40 mg PO DAILY gabapentin 100 mg PO BEDTIME lisinopril 30 mg PO DAILY melatonin (Melatin) 1.5 mg PO BEDTIME metoprolol tartrate 50 mg PO BID mv,Ca,jyk-xcfz-TC-lycopene 8 mg iron- 200 mcg-600 mcg (Centrum Men) tabs PO quetiapine 25 mg PO BID sertraline 50 mg PO DAILY HPI HPI Comments History of Present Illness Details 77y/o male comes for follow up of numbness in bilateral feet. 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 His BUN and creatinine were mildly elevated. Gabapentin helps. no side effects In 2019 he had COVID and in hospital for 7 weeks. He was on ventilator for 3 weeks, he coded twice. He had trouble walking after discharge, he used a wlaker. He was found to have infection in his legs ? thrombophelibitis? cellulitis.He was treated with anitibiotics but he did not respond. He went to [facility] - he had surgery and was given antibiotics.He started having numbness in his distal lower extremities and feet. He has paresthesias and burning pain. He also reports nocturnal cramps.It is worse since then.He also has back pain . He has h/o peripheral artery artery disease. He had stent in right LE and Fem Fem in his left leg in 2014. [facility] Medical History (Updated 12/28/22 @ 15:00 by Marybel Mcpherson MD) Anxiety Atherosclerotic cardiovascular disease COPD (chronic obstructive pulmonary disease) Depression Diverticulitis History of alcohol abuse History of atrial fibrillation History of COVID-19 Hypersomnia Hypertension Neuropathy On anticoagulant therapy On beta jose at home PVD (peripheral vascular disease) Renal cell carcinoma Snoring Surgical History H/O cardiac catheterization History of colectomy S/P femoral-femoral bypass surgery Social History Household Members: Spouse Housing: House Do you presently have visiting nurse or other home services: No Alcohol intake: never Patient Tobacco Use Status: Former Tobacco user Substance Use Type: Marijuana Advance Directives Date on File: 06/09/21 service: Yes Current occupational status: retired Physical Exam Vital Signs: Last Vital Signs Pulse 71 12/28/22 14:40 BP 136/72 12/28/22 14:40 Pulse Ox 97 12/28/22 14:40 Oxygen Delivery Method Room Air 12/28/22 14:40 BMI result Body Mass Index 33.0 Const General: cooperative, comfortable and no acute distress Nutritional Appearance: overweight Orientation/consciousness: patient oriented x3 Eyes Pupils: Equal, round and reactive pupils present Neck Neck: Yes no meningeal signs Neuro Other: decreased Pin prick and touch in right LE upto calf and patchy loss in lower medial thigh on right Decreased pin prick light touch distal LE upto calf foot - red swollen gait- slow General: patient oriented x3, moves all extremities, no meningeal signs and no focal motor deficits Cranial nerves: Yes Facial sensation intact/muscles of mastication intact, Yes Equal, round and reactive pupils present, Yes Nystagmus not present, Yes Normal facial strength present, Yes Midline tongue present, Yes Symmetric palate elevation present and Yes Ability to bilaterally elevate shoulders present Deep tendon reflexes (DTR's): Right triceps reflex intensity grade: 1+, Left triceps reflex intensity grade: 1+, Rt Biceps (C5, C6): 1+, Left biceps reflex intensity grade: 1+, Right brachioradialis reflex intensity grade: 1+, Left brachioradialis reflex intensity grade: 1+, Right patellar reflex intensity grade: 0, Left patellar reflex intensity grade: 0, Right ankle reflex intensity grade: 0 and Left ankle reflex intensity grade: 0 Coordination: [id number] test normal Assessment & Plan Assessment & Plan (1) Axonal sensorimotor neuropathy: Comment: ? related to alcohol use, ? Post viral Code(s): G62.89 - Other specified polyneuropathies (2) Snoring: Code(s): R06.83 - Snoring (3) Hypersomnia: Code(s): G47.10 - Hypersomnia, unspecified Plan Increase gabapentin 100mg 1-3 tabs qhs F/u with vascular SLeep study F/u PCP elevated BUN and cr Medications: Changed From gabapentin 100 mg PO BEDTIME 30 caps 6RF To gabapentin 1-3 caps orally bedtime; 90 caps 6RF Coding Level of Care Code Est Pt Level 4 (14760) Diagnoses Axonal sensorimotor neuropathy G62.89 Snoring R06.83 Hypersomnia G47.10
== END 2022-12-28 15:07 | disposition home or self-care (01) ==
PROVIDERS: PCP Internal Medicine; Visit Provider Psychiatry & Neurology Neurology
DX: G62.89 Other specified polyneuropathies (principal); R06.83 Snoring; G47.10 Hypersomnia, unspecified
CPT/HCPCS: 99214

== ENCOUNTER → 2022-12-28 14:39 | Outpatient (BNVA) | payer MEDICARE, SELFPAY | PROVIDERS: PCP Internal Medicine; Visit Provider Psychiatry & Neurology Neurology | DX: G62.89 Other specified polyneuropathies (principal); R06.83 Snoring; G47.10 Hypersomnia, unspecified | CPT/HCPCS: 99212 ==

== ENCOUNTER 2023-03-02 08:58 | Outpatient (REF) | payer MEDICARE, SELFPAY ==
[2023-03-02 13:28] LABS: MANUAL DIFF FLAG NO
[2023-03-02 13:50] LABS: Basophils Absolute Auto 0.1 X10*3/uL (0.0-0.2); Basophils Percent Auto 0.5 % (0-2); Eosinophils Absolute Auto 0.1 X10*3/uL (0.0-0.4); Eosinophils Percent Auto 1.4 % (0-4); Hematocrit 49.7 % (42.0-52.0); Hemoglobin 16.3 g/dl (14.0-18.0); Imm Gran Abs Auto 0.04 X10*3/uL (0.00-0.03); Imm Gran Pct Auto 0.4 % (0.0-0.4); Lymphocytes Absolute Auto 1.6 X10*3/uL (1.2-4.9); Lymphocytes Percent Auto 15.5 % (20-40); Mean Corpuscular HGB Conc 32.8 g/dl (31.0-36.0); Mean Corpuscular Hemoglobin 32.2 pg (27.0-33.0); Mean Corpuscular Volume 98.2 fL (80.0-98.0); Mean Platelet Volume 10.1 fL (9.4-12.4); Monocytes Percent Auto 10.2 % (2-11); Neutrophils Absolute Auto 7.3 x10*3/uL (2.0-8.3); Platelet Count 262 X10*3/uL (160-400); Red Blood Count 5.06 X10*6/uL (4.60-5.80); Red Cell Distribution Width 13.5 % (11.0-16.0); White Blood Count 10.1 X10*3/uL (4.8-10.8)
[2023-03-02 14:35] LABS: Alanine Aminotransferase 22 U/L (0-40); Albumin Level 4.2 g/dL (3.5-5.0); Alkaline Phosphatase 115 U/L (39-117); Anion Gap 15 (12-20); Aspartate Amino Transferase 25 U/L (5-37); Bilirubin Total 0.3 mg/dL (0.0-1.0); Blood Urea Nitrogen 29 mg/dL (9-16); Carbon Dioxide 26 mmol/L (22-29); Chloride 106 mmol/L (96-108); Estimated Glomerular Filt Rate 40; Glucose Random 98 mg/dL (60-115); Potassium 5.2 mmol/L (3.3-5.1); Sodium 142 mmol/L (135-145); Total Protein 7.6 g/dL (6.5-8.0)
== END 2023-03-02 08:59 | disposition home or self-care (01) ==
LOC: HO.LAB 08:58
PROVIDERS: PCP Internal Medicine; Visit Provider Nurse Practitioner Family
DX: C64.9 Malignant neoplasm of unspecified kidney, except renal pelvis (principal); G62.9 Polyneuropathy, unspecified; G62.89 Other specified polyneuropathies; I48.0 Paroxysmal atrial fibrillation; I25.10 Atherosclerotic heart disease of native coronary artery without angina pectoris; I73.9 Peripheral vascular disease, unspecified; I10 Essential (primary) hypertension; Z98.890 Other specified postprocedural states
CPT/HCPCS: 36415; 80053; 85025; 93005; 99212

== ENCOUNTER 2023-03-02 08:58 | Outpatient (AMB) | payer MEDICARE, SELFPAY ==
--- NOTE | 2023-03-02 08:59 | MHC.OFFVIS ---
Intake Vital Signs 03/02/23 09:00 Height 6 ft Weight 245 lb 6 oz BMI 33.3 BP 124/72 Blood Pressure Location Rt brachial Position Sitting Pulse 52 Pulse Source Pulse Oximeter Pulse Oximetry (%) 100 Oxygen Delivery Method Room Air Intake Visit Reasons: 3m follow up Anesthesia of skin-Confirmed Intake Note: Patient presents for 3 month follow up. Patient states Liliana been taking the medication there's no change I still have numbness on my left foot and my legs are swollen. Allergies No Known Allergies [No Known Allergies*] Allergy (Verified 03/02/23 09:04) Medication List - Last Reconciled 03/02/23 by MELITON Hill apixaban (Eliquis) 5 mg PO BID atorvastatin 80 mg PO DAILY cilostazol 50 mg PO BID dextroamphetamine-amphetamine 7.5 mg 1 tab PO DAILY docusate sodium 100 mg PO DAILY furosemide 40 mg PO DAILY gabapentin 1-3 caps orally bedtime; lisinopril 30 mg PO DAILY melatonin (Melatin) 1.5 mg PO BEDTIME metoprolol tartrate 50 mg PO BID mv,Ca,mju-izrn-SY-lycopene 8 mg iron- 200 mcg-600 mcg (Centrum Men) tabs PO quetiapine 25 mg PO BID sertraline 50 mg PO DAILY HPI HPI Comments History of Present Illness Details 78-yr-old male presents for f/u visit for BLE neuropathy which started after 2019 when he developed severe COVID- in hospital for 7 weeks, on ventilator for 3 weeks, he coded twice. He had trouble walking after discharge, he used a walker. He was found to have infection in his legs ? thrombophelibitis ? cellulitis. He was treated with antibiotics but he did not respond. He went to [facility] - he had surgery and was given antibiotics. Pt denies any significant interval medical changes. He states that 3 weeks ago he had a renal biospy to f/u on known renal cyst. He states he has a h/o known RCC which was excised successfully w/o need for chemo/Rx tx. He has f/u w/ Dr Rai next week. 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 He is not sure if he did f/u w/ PCP regarding previously elevated BUN/Creat Pt reports he continues to have Bilateral L > R feet and right distal thigh numbness, pins and needles, It can feel like his left foot is walking on a sponge. These symptoms make it difficult for him to sleep. He needs to use OTC sleep aides (Nyquil sleep) every night. He endorses snoring, excessive daytime sleepiness (dozes off when using his computer- especially in the am). Tries to stay active. He usually swims twice a week. 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 He states the Gabapentin is not helping much. Last Resulted Lab Tests 12/26/22 11:10 RBC 4.88 Hgb 15.7 Hct 48.8 Plt Count 280 ESR 10 Sodium 140 Potassium 4.9 Chloride 107 Carbon Dioxide 26 Anion Gap 12 BUN 30 H Creatinine 1.52 H Random Glucose 87 Calcium 9.9 D AST 16 ALT 17 Alkaline Phosphata se 99 Total Protein 7.5 TSH 1.14 FABIO Screen POSITIVE A FABIO Titer 1:40 [facility] Medical History (Updated 03/02/23 @ 10:48 by MELITON Hill) Hypersomnia Snoring Neuropathy Atherosclerotic cardiovascular disease History of alcohol abuse History of COVID-19 On beta jose at home COPD (chronic obstructive pulmonary disease) On anticoagulant therapy History of atrial fibrillation PVD (peripheral vascular disease) Renal cell carcinoma Hypertension Depression Anxiety Diverticulitis Surgical History H/O cardiac catheterization History of colectomy S/P femoral-femoral bypass surgery Social History Household Members: Spouse Housing: House Do you presently have visiting nurse or other home services: No Alcohol intake: never Patient Tobacco Use Status: Former Tobacco user Substance Use Type: Marijuana Advance Directives Date on File: 06/09/21 service: Yes Current occupational status: retired Review of Systems Const All systems reviewed & are unremarkable except as noted in HPI and below Physical Exam Vital Signs: Last Vital Signs Pulse 52 03/02/23 09:00 BP 124/72 03/02/23 09:00 Pulse Ox 100 03/02/23 09:00 Oxygen Delivery Method Room Air 03/02/23 09:00 BMI result Body Mass Index 33.3 Const General: cooperative and no acute distress Orientation/consciousness: patient oriented x3 HEENT Head: Yes normocephalic Resp Effort & Inspection: normal respiratory effort and able to speak in complete sentences Neuro General: patient oriented x3 and gait normal Cognition (Neuro): normal cognition Motor exam (neuro): 5/5 motor strength present throughout Psych Appearance: grossly normal Mental Status: mental status grossly normal Speech and movement: Normal speech and movement present Affect: normal affect Attitude: cooperative Thought process: Normal thought process present Thought content: Normal thought content present Insight: Good insight present (Psych) Judgement: Good judgement present (Psych) Assessment & Plan Assessment & Plan (1) Axonal sensorimotor neuropathy: Comment: ? related to alcohol use, ? Post viral Code(s): G62.89 - Other specified polyneuropathies (2) Neuropathy: Comment: h/o PVD h/o cellulitis H/o covid Code(s): G62.9 - Polyneuropathy, unspecified (3) Snoring: Code(s): R06.83 - Snoring (4) Hypersomnia: Code(s): G47.10 - Hypersomnia, unspecified (5) Sleep difficulties: Code(s): G47.9 - Sleep disorder, unspecified (6) Renal cell carcinoma: Code(s): C64.9 - Malignant neoplasm of unspecified kidney, except renal pelvis Plan After visit, was able to access and review pt's recent left kidney biopsy pathology report- Clear cell (conventional) renal cell carcinoma. Will check CBC and CMP Will request nephrology's input- also ? neuropathy could be d/t a paraneoplastic syndrome secondary to RCC. F/u w/ cardiology today as scheduled. Continue Gabapentin 300mg qhs- consider increasing upon review of labs. Pt also advsied to undergo in-lab PSG to assess for sleep apnea and PLMS. f/u in 3 months or sooner prn. Orders: Orders Complete Blood Count Auto Diff Today G62.89 - Other specified polyneuropathies, G62.9 - Polyneuropathy, unspecified, S37.009A - Unspecified injury of unspecified kidney, initial encounter Comprehensive Met. Panel Today G62.89 - Other specified polyneuropathies, G62.9 - Polyneuropathy, unspecified, S37.009A - Unspecified injury of unspecified kidney, initial encounter RT PSG in-lab sleep study Today G47.10 - Hypersomnia, unspecified, G47.9 - Sleep disorder, unspecified, R06.83 - Snoring Referrals Nephrology Referral C64.9 - Malignant neoplasm of unspecified kidney, except renal pelvis, G62.89 - Other specified polyneuropathies Coding Level of Care Code Est Pt Level 4 (49689) Diagnoses Axonal sensorimotor neuropathy G62.89 Neuropathy G62.9 Snoring R06.83 Hypersomnia G47.10 Sleep difficulties G47.9 Renal cell carcinoma C64.9
[2023-03-02 09:00] VITALS: BP 124/72; PULSE 52; O2SAT 100; BMI 33.3
== END 2023-03-02 09:47 | disposition home or self-care (01) ==
PROVIDERS: PCP Internal Medicine; Visit Provider Nurse Practitioner Family
DX: G62.89 Other specified polyneuropathies (principal); G62.9 Polyneuropathy, unspecified; R06.83 Snoring; G47.10 Hypersomnia, unspecified; G47.9 Sleep disorder, unspecified; C64.9 Malignant neoplasm of unspecified kidney, except renal pelvis
CPT/HCPCS: 99214

== ENCOUNTER 2023-03-02 13:31 | Outpatient (AMB) | payer MEDICARE, SELFPAY ==
--- NOTE | 2023-03-02 13:40 | MHC.OFFVIS ---
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 Allergies No Known Allergies [No Known Allergies*] Allergy (Verified 03/02/23 13:43) Medication List - Last Reconciled 03/02/23 by Jahaira Lovelace, [employer] WORK[employer] apixaban (Eliquis) 5 mg PO BID atorvastatin 80 mg PO DAILY clonazepam 1 mg PO BEDTIME PRN clopidogrel (Plavix) 75 mg PO DAILY dextroamphetamine-amphetamine 7.5 mg 1 tab PO DAILY docusate sodium 100 mg PO DAILY furosemide 40 mg PO DAILY gabapentin 1-3 caps orally bedtime; lisinopril 30 mg PO DAILY melatonin (Melatin) 1.5 mg PO BEDTIME metoprolol tartrate 50 mg PO BID mv,Ca,tgt-wxti-EQ-lycopene 8 mg iron- 200 mcg-600 mcg (Centrum Men) tabs PO quetiapine 25 mg PO BID sertraline 50 mg PO DAILY HPI 6 month follow up HPI Details Alex is a 78-year-old male past medical history of hypertension, hyperlipidemia, peripheral vascular disease, dilated ascending aorta, coronary artery disease, lad stent, atrial flutter who presents for follow-up. Today he reports his he has been doing well since his last visit in June. He denies having chest discomfort at rest or with activity. No shortness of breath, palpitations, presyncope, syncope, PND, orthopnea. He does have lower leg edema which is not new for him. He reports dizziness at times and having issues with fatigue. No bleeding reported. Taking meds as directed. [facility] Medical History (Updated 03/02/23 @ 18:20 by Jahaira Lovelace, [employer] WORKER-[employer]) Hypersomnia Snoring Neuropathy Atherosclerotic cardiovascular disease History of alcohol abuse History of COVID-19 On beta jose at home COPD (chronic obstructive pulmonary disease) On anticoagulant therapy History of atrial fibrillation PVD (peripheral vascular disease) Renal cell carcinoma Hypertension Depression Anxiety Diverticulitis Surgical History H/O cardiac catheterization History of colectomy S/P femoral-femoral bypass surgery Social History Household Members: Spouse Housing: House Do you presently have visiting nurse or other home services: No Alcohol intake: never Patient Tobacco Use Status: Former Tobacco user Substance Use Type: Marijuana Advance Directives Date on File: 06/09/21 service: Yes Current occupational status: retired Review of Systems Const All systems reviewed & are unremarkable except as noted in HPI and below ENT Denies dizziness Card Denies chest pain, Denies chest pain at rest, Denies chest pain with activity, Denies rapid heart rate, Denies pedal edema, Denies edema, Denies leg edema, Denies lightheadedness, Denies palpitations, Denies dyspnea, Denies dyspnea on exertion and Denies orthopnea Resp Denies cough, Denies dyspnea and Denies dyspnea on exertion GI Denies hematochezia and Denies change in stool character Musc Denies abnormal gait, Denies limited range of motion, Denies muscle cramps, Denies muscle weakness, Reports numbness (in legs), Denies radiating pain into limb, Denies stiffness and Denies tingling Neuro Denies abnormal gait, Denies dizziness, Reports numbness (in legs) and Denies tingling Endo Denies palpitations Physical Exam Vital Signs: Last Vital Signs Pulse 52 03/02/23 13:41 BP 124/72 03/02/23 13:41 BMI result Body Mass Index 33.2 Const General: cooperative, healthy appearing, comfortable and no acute distress Orientation/consciousness: patient oriented x3 Neck Neck: Yes normal visual inspection Resp Effort & Inspection: normal respiratory effort Auscultation: clear to auscultation bilaterally, no crackles, no rales, no rhonchi and no wheezes Cardio Jugular venous distension: no JVD Rate: regular rate Rhythm: regular rhythm Heart sounds: S1 normal heart sound present, S2 normal heart sound present, no murmurs and no rubs Neuro General: patient oriented x3 Extrem General: Yes normal to inspection Psych Appearance: grossly normal Mental Status: mental status grossly normal Speech and movement: Normal speech and movement present Office Procedures EKG Details: Today, read by me, sinus bradycardia, septal Q-wave, rate 52, QTC 461 millisecond [id number], Complete Assessment & Plan Assessment & Plan (1) Paroxysmal atrial fibrillation: Code(s): I48.0 - Paroxysmal atrial fibrillation Plan: History of paroxysmal atrial fibrillation. EKG done today showing sinus bradycardia, septal Q-wave, rate 52. Q-wave present on his prior EKG as well. He is on metoprolol for heart rate control. He is on Eliquis for anticoagulation. No bleeding issues reported. Continue to follow kidney function. No med changes made today. Cardiology follow-up in 6 months, sooner if needed (2) Coronary artery disease: Code(s): I25.10 - Atherosclerotic heart disease of [place] coronary artery without angina pectoris Plan: History of coronary artery disease with LAD stent, 05/05/2022. He denies chest discomfort or shortness of breath at this visit. EKG done today shows no ischemia. Last echocardiogram done 02/25/2022 show EF 55-60%, unable to assess for wall motion abnormality, ascending aorta 4.1 cm. He is not on aspirin as he is on Eliquis. He is on Plavix 75 mg daily for at least 1 year post stent. He had been on cilostazol which was stopped. He is on metoprolol, lisinopril, high-dose atorvastatin with ideal LDL goal less than 70. Signs and symptoms of angina reviewed with him. Emergency care if ever needed for symptoms. (3) Coronary artery calcification seen on CT scan: Code(s): I25.10 - Atherosclerotic heart disease of [place] coronary artery without angina pectoris (4) S/P cardiac cath: Comment: 05/05/2022, left main mild disease, lad proximal 65% stenosis, 1st diagonal 100% stenosis, left circumflex minimal irregularities, RCA mid 50% stenosis, right PDA 50% stenosis, stent placed to the proximal LAD Code(s): Z98.890 - Other specified postprocedural states (5) PVD (peripheral vascular disease): Code(s): I73.9 - Peripheral vascular disease, unspecified Plan: He reports of history of stent in his right femoral region, fem to fem bypass on the left. He has ongoing issues with numbness in his lower extremities. He ambulates steadily. He has been followed by Dr. Mendoza. (6) Hypertension: Code(s): I10 - Essential (primary) hypertension Plan: Well controlled at this time. No med changes made. Coding Level of Care Code Est Pt Level 4 (34917) Diagnoses Paroxysmal atrial fibrillation I48.0 Coronary artery disease I25.10 Coronary artery calcification seen on CT scan I25.10 S/P cardiac cath Z98.890 PVD (peripheral vascular disease) I73.9 Hypertension I10 CPT Codes EKG - CPT: 07884-[id number], Complete ([id number]) Time Spent (min) 26
[2023-03-02 13:41] VITALS: BP 124/72; PULSE 52; BMI 33.2
== END 2023-03-02 14:20 | disposition home or self-care (01) ==
PROVIDERS: PCP Internal Medicine; Visit Provider Nurse Practitioner Family
DX: I48.0 Paroxysmal atrial fibrillation (principal); I25.10 Atherosclerotic heart disease of native coronary artery without angina pectoris; Z98.890 Other specified postprocedural states; I73.9 Peripheral vascular disease, unspecified; I10 Essential (primary) hypertension
CPT/HCPCS: 93010; 99214

== ENCOUNTER 2023-03-07 15:25 | Outpatient (AMB) | payer MEDICARE, SELFPAY ==
[2023-03-07 15:49] VITALS: BP 142/70; PULSE 64; BMI 32.7
--- NOTE | 2023-03-07 15:49 | HO.NEPHOV ---
HPI HPI Comments History of Present Illness Details I had the privilege of seeing Mr. Johnson in consultation. He had a remote history of left renal carcinoma which was treated by partial nephrectomy in 2006 . He recently had a follow-up MRI which revealed a 1.6 cm left renal mass which appear to be enhancing and suspicious for renal cell cancer. 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 He also has been having lower urinary tract symptoms and had been started on Flomax. He is known to have peripheral vascular disease and had undergone bypass. He has history of renal stones but has not had one lately. Remotely he had colectomy and colostomy which had been reversed in 2006 , He denies any flank pain, hematuria, dysuria. He denies taking nonsteroidal anti-inflammatory medications. He does not have any coronary artery disease, congestive heart failure or known renal artery stenosis. He takes lisinopril and metoprolol and his BP has been at goal. He is on anticoagulation. He is anxious to have his renal lesion removed. His recent serum creatinine was found to be 1.6. [facility] Medical History Hypersomnia Snoring Neuropathy Atherosclerotic cardiovascular disease History of alcohol abuse History of COVID-19 On beta jose at home COPD (chronic obstructive pulmonary disease) On anticoagulant therapy History of atrial fibrillation PVD (peripheral vascular disease) Renal cell carcinoma Hypertension Depression Anxiety Diverticulitis Surgical History H/O cardiac catheterization History of colectomy S/P femoral-femoral bypass surgery Social History Household Members: Spouse Housing: House Do you presently have visiting nurse or other home services: No Alcohol intake: never Patient Tobacco Use Status: Former Tobacco user Substance Use Type: Marijuana Advance Directives Date on File: 06/09/21 service: Yes Current occupational status: retired Vital Signs 03/07/23 15:49 Height 6 ft Weight 241 lb 2 oz BMI 32.7 BP 142/70 H Blood Pressure Location Lt brachial Position Sitting Pulse 64 Pulse Source Pulse Oximeter Assessment & Plan Assessment & Plan (1) CKD (chronic kidney disease) stage 3, GFR 30-59 ml/min: Code(s): N18.30 - Chronic kidney disease, stage 3 unspecified Qualifiers: Chronic kidney disease stage 3 subtype: stage 3a (GFR 45-59) Qualified Code(s): N18.31 - Chronic kidney disease, stage 3a (2) Renal malignant neoplasm: Code(s): C64.9 - Malignant neoplasm of unspecified kidney, except renal pelvis Qualifiers: Laterality: left Qualified Code(s): C64.2 - Malignant neoplasm of left kidney, except renal pelvis (3) Hypertension: Code(s): I10 - Essential (primary) hypertension Qualifiers: Hypertension type: renovascular hypertension Qualified Code(s): I15.0 - Renovascular hypertension Plan Alex has chronic kidney disease most likely from vascular disease. He also had the loss of GFR from his partial nephrectomy. He is known to have bypasses for his PAD. He has a biopsy-proven clear cell renal cancer. He is going to undergo cryoablation. He may lose further GFR . His rise in serum creatinine most likely is due to progression of his renovascular disease. On the day of his surgery he should hold furosemide and lisinopril. After surgery, lisinopril could be restarted after his serum creatinine has plateaued. During follow-up , if his serum creatinine continues to rise I will consider cutting back on his NIALL inhibitor. He should remain well hydrated. I will do a Doppler of his renal arteries and shall consider doing a split study of his kidney function after his current renal cancer issues are resolved. He avoids nonsteroidal anti-inflammatory medications. He should remain well hydrated. I answered all his questions. Follow-up blood work and urine studies ordered. More than 45 minute spent retrieving data, patient encounter, documentations and recommendations. Orders: Orders Electrolytes 03/07/23 N18.30 - Chronic kidney disease, stage 3 unspecified Blood Urea Nitrogen 03/07/23 N18.30 - Chronic kidney disease, stage 3 unspecified Creatinine 03/07/23 N18.30 - Chronic kidney disease, stage 3 unspecified Calcium 03/07/23 N18.30 - Chronic kidney disease, stage 3 unspecified Coding Level of Care Code New Pt Level 4 (93521) Diagnoses Stage 3a chronic kidney disease N18.31 Chronic kidney disease stage 3 subtype: stage 3a (GFR 45-59) Malignant neoplasm of left kidney C64.2 Laterality: left Renovascular hypertension I15.0 Hypertension type: renovascular hypertension
== END 2023-03-07 16:23 | disposition home or self-care (01) ==
PROVIDERS: PCP Internal Medicine; Visit Provider Internal Medicine Nephrology
DX: N18.31 Chronic kidney disease, stage 3a (principal); C64.2 Malignant neoplasm of left kidney, except renal pelvis; I15.0 Renovascular hypertension
CPT/HCPCS: 99204

== ENCOUNTER → 2023-03-07 15:25 | Outpatient (BNVA) | payer MEDICARE, SELFPAY | PROVIDERS: PCP Internal Medicine; Visit Provider Internal Medicine Nephrology | DX: I15.0 Renovascular hypertension (principal); N18.31 Chronic kidney disease, stage 3a | CPT/HCPCS: 99202 ==

== ENCOUNTER 2023-04-04 09:07 | Emergency (ER) | payer MEDICARE, OTHER, SELFPAY ==
--- NOTE | ~2023-04-04 | CT_ITS ---
EXAMINATION: CT ABDOMEN AND PELVIS WITHOUT CONTRAST CLINICAL INFORMATION: Left-sided abdominal pain and diarrhea. COMPARISON: Previous CT of the abdomen and pelvis September 2022 TECHNIQUE: Multidetector volumetric imaging was performed from the superior aspect of the liver through the pubic symphysis. Sagittal and coronal reformatted images were obtained on the technologist's workstation. This CT examination was performed using dose optimization techniques as appropriate, variously including the following: *Automated exposure control *Adjustment of mA and/or kV according to patient size (this includes techniques or standardized protocols for targeted exams where dose is matched to indication/reason for exam; i.e. extremities or head) *Use of iterative reconstruction technique DLP: 761 mGy-cm FINDINGS: LUNG BASES: Subsegmental atelectasis at the lung bases. LIVER, GALLBLADDER, AND BILIARY TREE: The liver is normal in size, shape, and attenuation. Multiple stable small low-attenuation lesions suggestive of cysts. No ductal dilatation is present. Small gallstone in the gallbladder. The gallbladder is otherwise normal. PANCREAS: Unremarkable. SPLEEN: Unremarkable. ADRENAL GLANDS: Unremarkable. KIDNEYS AND URETERS: Postsurgical changes to the lower pole of the left kidney. Small bilateral renal cysts. No imaging follow-up recommended. The kidneys are otherwise normal. BLADDER: Not optimally distended. GASTROINTESTINAL TRACT: Diverticulosis of the colon. No evidence of diverticulitis. Small and large bowel is otherwise normal. Appendix is normal. The stomach is normal. ABDOMINAL WALL: Evidence of large ventral hernia repair with mesh. LYMPH NODES: Normal. VASCULAR: Atherosclerotic disease. There is severe narrowing of the left iliac artery. There is a femorofemoral bypass graft PELVIC VISCERA: The prostate gland is enlarged and protrudes into the base of the bladder. Prostate gland measures 5.37 OSSEOUS STRUCTURES: Degenerative changes of the spine and hip joints. CT/CT abdomen pelvis wo IV con IMPRESSION: Diverticulosis. No evidence of diverticulitis or colitis. Small gallstones in the gallbladder. Small stable liver cysts. Postsurgical changes to the lower pole of the left kidney. Enlarged prostate gland. Atherosclerotic disease. Fleischner guidelines were followed.
[2023-04-04 09:24] VITALS: BP 136/68; PULSE 60; RESP 16; TEMP 36.1; O2SAT 98; BMI 31.7
--- NOTE | 2023-04-04 09:50 | MHC.EDTECH ---
Patient blood drawn and sent to lab .
[2023-04-04 09:57] LABS: Basophils Absolute Auto 0.1 X10*3/uL (0.0-0.2); Basophils Percent Auto 0.7 % (0-2); Eosinophils Absolute Auto 0.1 X10*3/uL (0.0-0.4); Eosinophils Percent Auto 1.1 % (0-4); Hematocrit 48.3 % (42.0-52.0); Hemoglobin 15.7 g/dl (14.0-18.0); Imm Gran Abs Auto 0.02 X10*3/uL (0.00-0.03); Imm Gran Pct Auto 0.2 % (0.0-0.4); Lymphocytes Percent Auto 12.2 % (20-40); MANUAL DIFF FLAG SCAN; Mean Corpuscular HGB Conc 32.5 g/dl (31.0-36.0); Mean Corpuscular Hemoglobin 32.3 pg (27.0-33.0); Mean Corpuscular Volume 99.4 fL (80.0-98.0); Mean Platelet Volume 10.9 fL (9.4-12.4); Monocytes Absolute Auto 0.7 X10*3/uL (0.1-1.2); Monocytes Percent Auto 8.3 % (2-11); Neutrophils Absolute Auto 6.4 x10*3/uL (2.0-8.3); Neutrophils Percent Auto 77.5 % (45-73); PLT CLUMP 1; Red Blood Count 4.86 X10*6/uL (4.60-5.80); Red Cell Distribution Width 14.6 % (11.0-16.0); SCAN SMEAR FLAG 1
[2023-04-04 10:01] LABS: Platelet Count 204 X10*3/uL (160-400); White Blood Count 8.2 X10*3/uL (4.8-10.8)
[2023-04-04 10:12] LABS: Anion Gap 15 (12-20); Blood Urea Nitrogen 24 mg/dL (9-16); Calcium 9.6 mg/dL (8.4-10.2); Carbon Dioxide 19 mmol/L (22-29); Chloride 108 mmol/L (96-108); Creatinine Clr Calc Pharmacy 66.1; Estimated Glomerular Filt Rate 57; Glucose Random 108 mg/dL (60-115); Potassium 5.1 mmol/L (3.3-5.1); Sodium 137 mmol/L (135-145)
--- NOTE | 2023-04-04 10:26 | MHC.EDTECH ---
Patient urine sample collected and sent to lab .
[2023-04-04 10:32] LABS: Appearance Urine Clear; Color Urine Straw; Glucose Urine UA Negative (Negative); Leukocyte Esterase Urine Negative (Negative); Nitrite Urine Negative (Negative); PH 5.5 (5.0-9.0); Specific Gravity - Urine <= 1.005 (1.005-1.025); Urine Blood Negative (Negative); Urine Ketones Negative (Negative); Urine Protein Negative (Neg-Trace)
[2023-04-04 10:35] LABS: SLIDE REVIEW VERIFIED
[2023-04-04 11:17] VITALS: BP 152/76; PULSE 71; RESP 20; TEMP 36.7; O2SAT 95
--- NOTE | 2023-04-04 12:07 | ED.WEAKNESS ---
HPI - Weakness General Chief complaint: Weakness Stated complaint: Lightheaded/Not feeling well-has tumor on kidney Time Seen by Provider: 04/04/23 11:42 Source: patient Mode of arrival: ambulatory Limitations: no limitations History of Present Illness HPI Narrative: 78-year-old male past medical history severe COVID infection in 2019 (ventilated x3 weeks, cardiac arrest x2), peripheral last disease with severe cellulitis requiring fasciotomy, coronary disease, COPD, hypertension, depression, anxiety, left kidney cancer (remote 20 years prior and recurrent diagnosed several weeks prior), diverticulitis with partial colectomy, colostomy which was reversed who presents to emergency department for evaluation of weakness, loss of appetite, 2-3 episodes of watery to muddy appearing diarrhea x2 weeks with no blood in the diarrhea, left sided abdominal pain. Review of systems : negative for fever, chills, rhinorrhea, sore throat, cough, chest pain, nausea, vomiting, dysuria, black stools or bloody stools. positive for shortness of breath diarrhea as described above and frequency. Related Data Home Medications Medication Instructions Recorded Confirmed docusate sodium 100 mg capsule 100 mg PO DAILY 08/17/21 03/02/23 lisinopril 30 mg tablet 30 mg PO DAILY 08/17/21 03/02/23 melatonin 3 mg tablet (Melatin) 1.5 mg PO BEDTIME 08/17/21 03/02/23 apixaban 5 mg tablet (Eliquis) 5 mg PO BID 01/27/22 03/02/23 atorvastatin 80 mg tablet 80 mg PO DAILY 01/27/22 03/02/23 furosemide 40 mg tablet 40 mg PO DAILY 01/27/22 03/02/23 sertraline 50 mg tablet 50 mg PO DAILY 07/06/22 03/02/23 metoprolol tartrate 50 mg tablet 50 mg PO BID 10/24/22 03/02/23 quetiapine 25 mg tablet 25 mg PO BID 12/28/22 03/02/23 clonazepam 1 mg tablet 1 mg PO BEDTIME PRN 03/02/23 clopidogrel 75 mg tablet (Plavix) 75 mg PO DAILY 03/02/23 03/02/23 tamsulosin 0.4 mg capsule 0.4 mg PO DAILY 03/07/23 cilostazol 50 mg tablet 50 mg PO BID 03/27/23 Previous Rx's Medication Instructions Recorded gabapentin 100 mg capsule See Rx Instructions PO BEDTIME #90 12/28/22 caps Allergies Allergy/AdvReac Type Severity Reaction Status Date / Time No Known Allergies Allergy Verified 04/04/23 09:32 [No Known Allergies*] Review of Systems Review of Systems: Yes all other systems are reviewed and are negative [facility] Past Medical History [facility] Narrative: Social history: He denies tobacco use. He denies alcohol use. He does smoke marijuana occasionally Medical History Hypersomnia Snoring Neuropathy Atherosclerotic cardiovascular disease History of alcohol abuse History of COVID-19 On beta jose at home COPD (chronic obstructive pulmonary disease) On anticoagulant therapy History of atrial fibrillation PVD (peripheral vascular disease) Renal cell carcinoma Hypertension Depression Anxiety Diverticulitis Surgical History H/O cardiac catheterization History of colectomy S/P femoral-femoral bypass surgery Social History Social History Household Members: Spouse Housing: House Do you presently have visiting nurse or other home services: No Alcohol intake: never Patient Tobacco Use Status: Former Tobacco user Smoked in Last 30 Days: No Use of substances other than those prescribed or required for medical reasons: No Substance Use Type: Marijuana Advance Directives: Yes Advance Directives on File: Yes Advance Directives Date on File: 06/09/21 service: Yes Current occupational status: retired Physical Exam Vital Signs: Vital Signs: Last Vital Signs Temp 98.1 F 04/04/23 11:17 Pulse 71 04/04/23 11:17 Resp 20 04/04/23 11:17 BP 152/76 H 04/04/23 11:17 Pulse Ox 95 04/04/23 11:17 O2 Del Method Room Air 04/04/23 11:17 BMI result Body Mass Index 31.7 Vital signs revealed elevated respiratory of 20, elevated blood pressure of 152/76 Exam General: Awake, alert in no distress Head: Normocephalic, atraumatic EENT: PERRL, Lids normal, sclera normal, conjunctiva normal, nose normal , ears normal, throat without erythema or exudates Neck: Supple, no adenopathy, no trachea midline or C-spine tenderness Lung: breath sounds symmetric, no wheezing, rales or rhonchi Chest: symmetric movement, nontender Heart: regular rate and rhythm, normal S1, S2 no murmurs or rubs Abdomen: Obese, hyperactive bowel sounds, moderate left-sided tenderness mild to moderate epigastric tender, no distension Back: no vertebral tenderness, no CVAT Extremities: no deformities, moves all extremities symmetrically Neuro: Awake, alert, oriented, normal speech, cranial nerves intact, moves all extremities symmetrically Psych: Pleasant, cooperative Medications Administered Discontinued Medications Generic Name Dose Route Start Last Admin Trade Name Freq PRN Reason Stop Dose Admin Diatrizoate Meglum/Diatrizoate Sod 30 ml 04/04/23 15:57 04/04/23 15:58 Diatrizoate Meglumine, Sodium 30 Ml Solution PO 04/04/23 15:58 30 ml ONCE ONE Administration Sodium Chloride 1,000 mls @ 999 mls/hr 04/04/23 12:08 04/04/23 14:00 Ns IV 04/04/23 13:08 Not Given .Q1H1M STA Medical Decision Making Medical Decision Making MDM Narrative: 78-year-old male with multiple medical problems including recent recurrence of left cancer who presents emergency department for evaluation of 2 weeks of 2-3 episodes of watery to muddy diarrhea per day, loss of appetite, fatigue and weakness. Patient is not been on antibiotics recently and has not traveled. Vital signs did reveal an elevated blood pressure of 152/76 otherwise unremarkable. Abdominal exam did reveal hyperactive bowel sounds with mild to moderate epigastric tenderness and moderate left-sided tenderness. Following evaluation was ordered: CBC, BMP, liver panel, lipase, C diff, GI panel, urinalysis, CT scan of the abdomen pelvis with IV and oral contrast Patient was treated with normal saline IV x1 L. I ordered normal saline 1 L IV and 16:54 Nursing staff was unable to get an IV in on the patient after multiple times and the patient refused any further attempts at an IV. Given this fact I change the patient's CT scan to a CT scan with oral contrast without IV contrast. Patient's laboratory evaluation was unremarkable. At the end of my shift, the patient's abdominal tenderness has resolved. The CT scan of the patient's abdomen pelvis with oral contrast only is pending therefore the patient's care was turned over to my colleague, Dr. Geraldine Lindo Differential Diagnosis Differential Diagnoses: The differential diagnosis associated with the presentation includes Differential diagnosis includes was not limited to inflammatory bowel disease, colitis, C difficile infection, viral syndrome, partial small-bowel obstruction, pancreatitis, electrolyte abnormalities, anemia Admission/Observation Consideration of admission/observation: Escalation of care including admission/observation considered Lab Data MDM Lab Attestation statement: I reviewed the patient's lab results. My interpretation patient's laboratory evaluation as follows: CBC was normal. Bicarb low 19. BUN elevated 24. LFTs and lipase were normal. Urinalysis was negative. GI panel pending. C diff was negative. 04/04/23 09:48 04/04/23 09:48 Labs: Lab Results 04/04/23 04/04/23 04/04/23 Range/Units 09:48 10:20 14:41 WBC 8.2 (4.8-10.8) X10*3/uL RBC 4.86 (4.60-5.80) X10*6/uL Hgb 15.7 (14.0-18.0) g/dl Hct 48.3 (42.0-52.0) % MCV 99.4 H (80.0-98.0) fL MCH 32.3 (27.0-33.0) pg MCHC 32.5 (31.0-36.0) g/dl RDW 14.6 (11.0-16.0) % Plt Count 204 (160-400) X10*3/uL MPV 10.9 (9.4-12.4) fL Immature Gran % (Auto) 0.2 (0.0-0.4) % Neut % (Auto) 77.5 H (45-73) % Lymph % (Auto) 12.2 L (20-40) % [place]clean % (Auto) 8.3 (2-11) % Eos % (Auto) 1.1 (0-4) % Baso % (Auto) 0.7 (0-2) % Lymph # (Auto) 1.0 L (1.2-4.9) X10*3/uL [place] # (Auto) 0.7 (0.1-1.2) X10*3/uL Eos # (Auto) 0.1 (0.0-0.4) X10*3/uL Baso # (Auto) 0.1 (0.0-0.2) X10*3/uL Abs Immat Gran (auto) 0.02 (0.00-0.03) X10*3/uL Absolute Neuts (auto) 6.4 (2.0-8.3) x10*3/uL Absolute Nucleated RBC 0.000 (0.0-0.012) X10*3/uL Nucleated RBC % (auto) 0.0 (0.0-0.2) /100WBC Smear Tech's Comments VERIFIED Sodium 137 (135-145) mmol/L Potassium 5.1 (3.3-5.1) mmol/L Chloride 108 (96-108) mmol/L Carbon Dioxide 19 L (22-29) mmol/L Anion Gap 15 (12-20) BUN 24 H (9-16) mg/dL Creatinine 1.23 (0.5-1.4) mg/dL Estim Creat Clear Calc 66.1 Estimated GFR 57 Random Glucose 108 (60-115) mg/dL Calcium 9.6 (8.4-10.2) mg/dL Total Bilirubin 0.6 (0.0-1.0) mg/dL Direct Bilirubin 0.2 (0.0-0.5) mg/dL AST 27 (5-37) U/L ALT 17 (0-40) U/L Alkaline Phosphatase 108 (39-117) U/L Total Protein 7.4 (6.5-8.0) g/dL Albumin 4.0 (3.5-5.0) g/dL Lipase 29 (8-78) U/L Urine Color Straw Urine Appearance Clear Urine pH 5.5 (5.0-9.0) Ur Specific [place] <= 1.005 (1.005-1.025) Urine Protein Negative (Neg-Trace) mg/dL Urine Glucose (UA) Negative (Negative) mg/dL Urine Ketones Negative (Negative) mg/dL Urine Blood Negative (Negative) Urine Nitrite Negative (Negative) Ur Leukocyte Esterase Negative (Negative) C. difficile Tox B Gene NEGATIVE (Negative) Discharge Plan Discharge Clinical Impression: Abdominal pain Qualifiers: Abdominal location: left lower quadrant Qualified Code(s): R10.32 - Left lower quadrant pain Diarrhea Qualifiers: Diarrhea type: unspecified type Qualified Code(s): R19.7 - Diarrhea, unspecified Patient Disposition: Still a Patient Prescriptions: No Action cilostazol 50 mg tablet 50 mg PO BID atorvastatin 80 mg tablet 80 mg PO DAILY Eliquis 5 mg tablet 5 mg PO BID furosemide 40 mg tablet 40 mg PO DAILY sertraline 50 mg tablet 50 mg PO DAILY lisinopril 30 mg tablet 30 mg PO DAILY melatonin [Melatin] 3 mg tablet 1.5 mg PO BEDTIME docusate sodium 100 mg capsule 100 mg PO DAILY quetiapine 25 mg tablet 25 mg PO BID gabapentin 100 mg capsule See Rx Instructions PO BEDTIME Qty: 90 6RF Rx Instructions: 1-3 caps orally bedtime; clonazepam 1 mg tablet 1 mg PO BEDTIME PRN clopidogrel [Plavix] 75 mg tablet 75 mg PO DAILY metoprolol tartrate 50 mg tablet 50 mg PO BID tamsulosin 0.4 mg capsule 0.4 mg PO DAILY
[2023-04-04 12:42] LABS: Alanine Aminotransferase 17 U/L (0-40); Alkaline Phosphatase 108 U/L (39-117); Aspartate Amino Transferase 27 U/L (5-37); Bilirubin Direct 0.2 mg/dL (0.0-0.5); Bilirubin Total 0.6 mg/dL (0.0-1.0); Lipase 29 U/L (8-78); Total Protein 7.4 g/dL (6.5-8.0)
[2023-04-04] MEDS: Diatrizoate Meglumine, Sodium 30 ML SOLUTION PO (15:58)
[2023-04-04 16:01] LABS: CDiff Gene PCR NEGATIVE (Negative)
[2023-04-04 16:52] VITALS: BP 160/79; PULSE 70; RESP 20; TEMP 36.9; O2SAT 96
[2023-04-05 10:00] LABS: Adenovirus F 40/41 Not Detected (Not Detect.); Astrovirus Not Detected (Not Detect.); Campylobacter Not Detected (Not Detect.); Cryptosporidium Not Detected (Not Detect.); Cyclospora cayetanensis Not Detected (Not Detect.); E. coli EAEC Not Detected (Not Detect.); E. coli EPEC Detected (Not Detect.); E. coli ETEC Not Detected (Not Detect.); E. coli STEC Not Detected (Not Detect.); Entamoeba histolytica Not Detected (Not Detect.); Giardia lamblia Not Detected (Not Detect.); Norovirus GI/GII Not Detected (Not Detect.); Plesiomonas shigelloides Not Detected (Not Detect.); Rotavirus A Not Detected (Not Detect.); Salmonella Not Detected (Not Detect.); Sapovirus Not Detected (Not Detect.); Shigella sp./EIEC Not Detected (Not Detect.); Vibrio Not Detected (Not Detect.); Vibrio Cholerae Not Detected (Not Detect.); Yersinia enterocolitica Not Detected (Not Detect.)
== END 2023-04-04 17:32 | disposition home or self-care (01) ==
PROVIDERS: Emergency Medicine Emergency Medical Services; Emergency Provider Student in an Organized Health Care Education/Training Program; PCP Internal Medicine
DX: R10.32 Left lower quadrant pain (principal); R19.7 Diarrhea, unspecified; Z11.52 Encounter for screening for COVID-19; Z20.822 Contact with and (suspected) exposure to COVID-19; Z87.891 Personal history of nicotine dependence; Z79.899 Other long term (current) drug therapy
CPT/HCPCS: 36415; 74176; 80048; 80076; 81003; 83690; 85025; 87493; 87507; 99284

== ENCOUNTER 2023-04-14 14:00 | Outpatient (AMB) | payer MEDICARE, SELFPAY ==
--- NOTE | 2023-04-14 14:13 | HO.NEPHOV ---
HPI HPI Comments History of Present Illness Details I had the privilege of seeing Mr. Johnson in follow up . He had a remote history of left renal carcinoma which was treated by partial nephrectomy in 2006 . He recently had a follow-up MRI which revealed a 1.6 cm left renal mass which appear to be enhancing and suspicious for renal cell cancer. 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 He also has been having lower urinary tract symptoms and had been started on Flomax. He is known to have peripheral vascular disease and had undergone bypass. He has history of renal stones but has not had one lately. Remotely he had colectomy and colostomy which had been reversed in 2006 , He denies any flank pain, hematuria, dysuria. He denies taking nonsteroidal anti-inflammatory medications. He does not have any coronary artery disease, congestive heart failure or known renal artery stenosis. He takes lisinopril and metoprolol and his BP has been at goal. He is on anticoagulation. He is anxious to have his renal lesion removed. His recent serum creatinine was found to be 1.6 PFSH Medical History Hypersomnia Snoring Neuropathy Atherosclerotic cardiovascular disease History of alcohol abuse History of COVID-19 On beta jose at home COPD (chronic obstructive pulmonary disease) On anticoagulant therapy History of atrial fibrillation PVD (peripheral vascular disease) Renal cell carcinoma Hypertension Depression Anxiety Diverticulitis Surgical History H/O cardiac catheterization History of colectomy S/P femoral-femoral bypass surgery Social History Household Members: Spouse Housing: House Do you presently have visiting nurse or other home services: No Alcohol intake: never Patient Tobacco Use Status: Former Tobacco user Substance Use Type: Marijuana Advance Directives Date on File: 06/09/21 service: Yes Current occupational status: retired Vital Signs 04/14/23 14:15 Height 6 ft 1 in Weight 251 lb BMI 33.1 BP 130/74 Blood Pressure Location Lt brachial Position Sitting Pulse 54 Pulse Source Pulse Oximeter Pulse Oximetry (%) 96 Oxygen Delivery Method Room Air Physical Exam Vital Signs: Last Vital Signs Pulse 54 04/14/23 14:15 BP 130/74 04/14/23 14:15 Pulse Ox 96 04/14/23 14:15 Oxygen Delivery Method Room Air 04/14/23 14:15 BMI result Body Mass Index 33.1 Const General: comfortable and no acute distress Orientation/consciousness: patient oriented x3 HEENT Head: Yes normocephalic Mouth: Normal oral and palatal mucosa present Eyes EOM: EOMs intact bilaterally Neck Neck: Yes supple Resp Auscultation: clear to auscultation bilaterally Cardio Jugular venous distension: no JVD Rate: regular rate GI Palpation (GI): Soft to palpation Auscultation: normal bowel sounds General: Yes no CVA tenderness Back/Spine/Pelvis Back: no CVA tenderness Skin General skin exam: no rashes or lesions noted Neuro General: patient oriented x3 and moves all extremities Extrem General: Yes no pedal edema Assessment & Plan Assessment & Plan (1) CKD (chronic kidney disease) stage 3, GFR 30-59 ml/min: Code(s): N18.30 - Chronic kidney disease, stage 3 unspecified Qualifiers: Chronic kidney disease stage 3 subtype: stage 3a (GFR 45-59) Qualified Code(s): N18.31 - Chronic kidney disease, stage 3a (2) Renal malignant neoplasm: Code(s): C64.9 - Malignant neoplasm of unspecified kidney, except renal pelvis Qualifiers: Laterality: left Qualified Code(s): C64.2 - Malignant neoplasm of left kidney, except renal pelvis (3) Hypertension: Code(s): I10 - Essential (primary) hypertension Qualifiers: Hypertension type: renovascular hypertension Qualified Code(s): I15.0 - Renovascular hypertension Plan Alex has chronic kidney disease most likely from vascular disease. He also had the loss of GFR from his partial nephrectomy. He is known to have bypasses for his PAD. He has a biopsy-proven clear cell renal cancer. He is going to undergo cryoablation this upcoming week. He may lose further GFR . On the day of his surgery he should hold furosemide and lisinopril. After surgery, lisinopril could be restarted after his serum creatinine has plateaued. During follow-up , if his serum creatinine continues to rise I will consider cutting back on his NIALL inhibitor. He should remain well hydrated. I will do a Doppler of his renal arteries and shall consider doing a split study of his kidney function after his current renal cancer issues are resolved. He avoids nonsteroidal anti-inflammatory medications. He should remain well hydrated. I answered all his questions. Follow-up blood work and urine studies ordered. Orders: Orders Creatinine Today C64.9 - Malignant neoplasm of unspecified kidney, except renal pelvis, I10 - Essential (primary) hypertension, N18.30 - Chronic kidney disease, stage 3 unspecified Electrolytes Today C64.9 - Malignant neoplasm of unspecified kidney, except renal pelvis, I10 - Essential (primary) hypertension, N18.30 - Chronic kidney disease, stage 3 unspecified Blood Urea Nitrogen Today C64.9 - Malignant neoplasm of unspecified kidney, except renal pelvis, I10 - Essential (primary) hypertension, N18.30 - Chronic kidney disease, stage 3 unspecified Coding Level of Care Code Est Pt Level 3 (81084) Diagnoses Stage 3a chronic kidney disease N18.31 Chronic kidney disease stage 3 subtype: stage 3a (GFR 45-59) Malignant neoplasm of left kidney C64.2 Laterality: left Renovascular hypertension I15.0 Hypertension type: renovascular hypertension Results Reviewed Nephrology Results: Hgb 15.7 g/dl (14.0-18.0) 04/04/23 WBC 8.2 X10*3/uL (4.8-10.8) 04/04/23 Plt Count 204 X10*3/uL (160-400) 04/04/23 Sodium 137 mmol/L (135-145) 04/04/23 Potassium 5.1 mmol/L (3.3-5.1) 04/04/23 Chloride 108 mmol/L (96-108) 04/04/23 Carbon Dioxide 19 mmol/L (22-29) L 04/04/23 BUN 24 mg/dL (9-16) H 04/04/23 Creatinine 1.23 mg/dL (0.5-1.4) 04/04/23 Calcium 9.6 mg/dL (8.4-10.2) 04/04/23 Urine Protein Negative mg/dL (Neg-Trace) 04/04/23
[2023-04-14 14:15] VITALS: BP 130/74; PULSE 54; O2SAT 96; BMI 33.1
== END 2023-04-14 14:40 | disposition home or self-care (01) ==
PROVIDERS: PCP Internal Medicine; Visit Provider Internal Medicine Nephrology
DX: N18.31 Chronic kidney disease, stage 3a (principal); C64.2 Malignant neoplasm of left kidney, except renal pelvis; I15.0 Renovascular hypertension
CPT/HCPCS: 99213

== ENCOUNTER → 2023-04-14 14:00 | Outpatient (BNVA) | payer MEDICARE, SELFPAY | PROVIDERS: PCP Internal Medicine; Visit Provider Internal Medicine Nephrology | DX: N18.31 Chronic kidney disease, stage 3a (principal); I15.0 Renovascular hypertension; C64.2 Malignant neoplasm of left kidney, except renal pelvis | CPT/HCPCS: 99212 ==

== ENCOUNTER 2023-05-26 16:08 | Outpatient (REF) | payer MEDICARE, SELFPAY ==
[2023-05-26 17:57] LABS: Appearance Urine Clear; Color Urine Yellow; Glucose Urine UA Negative (Negative); Leukocyte Esterase Urine Negative (Negative); Nitrite Urine Negative (Negative); Urine Blood Negative (Negative); Urine Ketones Negative (Negative); Urine Protein Negative (Neg-Trace)
== END 2023-05-26 16:09 | disposition home or self-care (01) ==
LOC: HO.CHCLNP 16:08
PROVIDERS: Visit Provider Registered Nurse
DX: R39.9 Unspecified symptoms and signs involving the genitourinary system (principal)
CPT/HCPCS: 81003; 87086

== ENCOUNTER 2023-06-01 | Outpatient (REF) | payer MEDICARE, OTHER, SELFPAY ==
--- NOTE | ~2023-06-01 | CT_ITS ---
EXAMINATION: CT ABDOMEN AND PELVIS WITHOUT CONTRAST CLINICAL INFORMATION: Stone study. COMPARISON: 04/04/2023 TECHNIQUE: Multidetector volumetric imaging was performed from the superior aspect of the liver through the pubic symphysis. Sagittal and coronal reformatted images were obtained on the technologist's workstation. This CT examination was performed using dose optimization techniques as appropriate, variously including the following: *Automated exposure control *Adjustment of mA and/or kV according to patient size (this includes techniques or standardized protocols for targeted exams where dose is matched to indication/reason for exam; i.e. extremities or head) *Use of iterative reconstruction technique DLP: 1539 mGy-cm FINDINGS: LUNG BASES: No pleural or pericardial effusion. LIVER, GALLBLADDER, AND BILIARY TREE: The noncontrast liver is normal in size and contour. Scattered hepatic cysts. No biliary ductal dilatation is present. Gallstones. PANCREAS: No ductal dilatation. SPLEEN: Not enlarged ADRENAL GLANDS: No adrenal mass. KIDNEYS AND URETERS: Bilateral hypodensities are incompletely characterized. New asymmetric perinephric fat stranding lateral midpole left kidney measuring 3.3 x 4.6 x 3.2 cm. No renal or ureteral calculus. No hydronephrosis. Stable postsurgical changes lower pole left kidney. BLADDER: Underdistended. No bladder calculus. GASTROINTESTINAL TRACT: Diverticular disease of the colon. No small bowel obstruction. Appendix is within ABDOMINAL WALL: Status post ventral hernia repair with surgical mesh in place. LYMPH NODES: No bulky lymphadenopathy. VASCULAR: Severe narrowing of the left common iliac artery. No abdominal aortic aneurysm. Femorofemoral bypass graft. PELVIC VISCERA: Marked enlargement of the prostate gland. OSSEOUS STRUCTURES: No destructive bone lesions. CT/CT abdomen pelvis wo IV con IMPRESSION: New asymmetric perinephric fat stranding lateral midpole left kidney measuring 3.3 x 4.6 x 3.2 cm. There is an underlying left renal hypodensity which is incompletely characterized given the lack of intravenous contrast. Consider dedicated renal ultrasound for further characterization.
== END 2023-06-01 00:01 | disposition home or self-care (01) ==
LOC: HO.CT
PROVIDERS: Visit Provider Registered Nurse
DX: M54.6 Pain in thoracic spine (principal); Z87.442 Personal history of urinary calculi
CPT/HCPCS: 74176

== ENCOUNTER 2023-06-29 11:40 | Outpatient (REF) | payer MEDICARE, OTHER, SELFPAY ==
--- NOTE | ~2023-06-29 | US_ITS ---
EXAMINATION: US RETROPERITONEAL LIMITED (RENAL ONLY) CLINICAL INFORMATION: Hypodensity of the left kidney on recent CT; history of partial left nephrectomy 2006 for renal cell carcinoma. COMPARISON: CT abdomen and pelvis 06/01/2023. X-ray abdomen 07/02/2015. TECHNIQUE: Real-time imaging of the kidneys. FINDINGS: RIGHT KIDNEY: 11.8 x 5.9 x 5.4 cm (SAG x AP x TRV). The kidney is normal in size, contour, and echogenicity. Renal cortical thickness is normal. No renal calculi or hydronephrosis. At the lower pole, 2.4 cm and 0.9 cm benign, simple cysts are seen, which require no imaging follow-up. LEFT KIDNEY: 12.5 x 6.1 x 5.8 cm (SAG x AP x TRV). The kidney is normal in size, contour, and echogenicity. Renal cortical thickness is normal. No renal calculi or hydronephrosis. At the partial nephrectomy site towards the lower pole, a 1.5 x 1.3 x 1.8 cm hypoechoic density is seen, without associated color Doppler flow. At the interpolar aspect, a 7 mm benign, simple cyst is seen. At the lower pole, a 1.4 cm benign, simple cyst is seen. These require no imaging follow-up. US/US renal BI IMPRESSION: At the left partial nephrectomy site towards the lower pole of the left kidney, a 1.8 cm hypoechoic lesion is seen, which is suspicious for a recurrent neoplasm. Urology evaluation and management are recommended, with consideration for ultrasound biopsy or MRI (contrast-enhanced, renal mass protocol), if clinically indicated.
== END 2023-06-29 11:41 | disposition home or self-care (01) ==
LOC: HO.HMGCX 11:40
PROVIDERS: PCP Internal Medicine; Visit Provider Internal Medicine
DX: R93.89 Abnormal findings on diagnostic imaging of other specified body structures (principal); N28.89 Other specified disorders of kidney and ureter
CPT/HCPCS: 76775

== ENCOUNTER 2023-07-19 11:41 | Outpatient (REF) | payer MEDICARE, SELFPAY ==
[2023-07-20 08:01] LABS: ~HepC Num1 0.22 S/CO (0.00-0.79); ~Hepatitis C Antibody Nonreactive (Nonreactive)
== END 2023-07-19 11:42 | disposition home or self-care (01) ==
LOC: HO.CHCLDS 11:41
PROVIDERS: Visit Provider Internal Medicine
DX: Z00.00 Encounter for general adult medical examination without abnormal findings (principal)
CPT/HCPCS: 36415; 86803; 99212

== ENCOUNTER 2023-07-19 13:27 | Outpatient (AMB) | payer MEDICARE, SELFPAY ==
--- NOTE | 2023-07-19 13:29 | HO.NEPHOV ---
HPI HPI Comments History of Present Illness Details I had the privilege of seeing Mr. Johnson in follow up . He had a remote history of left renal carcinoma which was treated by partial nephrectomy in 2006 . He recently had a follow-up MRI which revealed a 1.6 cm left renal mass which appear to be enhancing and suspicious for renal cell cancer. 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 He also has been having lower urinary tract symptoms and had been started on Flomax. He is known to have peripheral vascular disease and had undergone bypass. He has history of renal stones but has not had one lately. Remotely he had colectomy and colostomy which had been reversed in 2006 , He denies any flank pain, hematuria, dysuria. He denies taking nonsteroidal anti-inflammatory medications. He does not have any coronary artery disease, congestive heart failure or known renal artery stenosis. He takes lisinopril and metoprolol and his BP has been at goal. He is on anticoagulation. He is anxious to have his renal lesion removed. His recent serum creatinine was found to be 1.6 PFSH Medical History Hypersomnia Snoring Neuropathy Atherosclerotic cardiovascular disease History of alcohol abuse History of COVID-19 On beta jose at home COPD (chronic obstructive pulmonary disease) On anticoagulant therapy History of atrial fibrillation PVD (peripheral vascular disease) Renal cell carcinoma Hypertension Depression Anxiety Diverticulitis Surgical History H/O cardiac catheterization History of colectomy S/P femoral-femoral bypass surgery Social History Household Members: Spouse Housing: House Do you presently have visiting nurse or other home services: No Alcohol intake: never Patient Tobacco Use Status: Former Tobacco user Substance Use Type: Marijuana Advance Directives Date on File: 06/09/21 service: Yes Current occupational status: retired Vital Signs 07/19/23 13:31 Height 6 ft 1 in Weight 250 lb BMI 33.0 BP 130/74 Blood Pressure Location Lt brachial Position Sitting Pulse 57 Pulse Source Pulse Oximeter Pulse Oximetry (%) 97 Oxygen Delivery Method Room Air Physical Exam Const General: comfortable and no acute distress Orientation/consciousness: patient oriented x3 HEENT Head: Yes normocephalic Mouth: Normal oral and palatal mucosa present Eyes EOM: EOMs intact bilaterally Neck Neck: Yes supple Resp Auscultation: clear to auscultation bilaterally Cardio Jugular venous distension: no JVD Rate: regular rate GI Palpation (GI): Soft to palpation Auscultation: normal bowel sounds General: Yes no CVA tenderness Back/Spine/Pelvis Back: no CVA tenderness Skin General skin exam: no rashes or lesions noted Neuro General: patient oriented x3 and moves all extremities Extrem General: Yes no pedal edema Assessment & Plan Assessment & Plan (1) CKD (chronic kidney disease) stage 3, GFR 30-59 ml/min: Code(s): N18.30 - Chronic kidney disease, stage 3 unspecified Qualifiers: Chronic kidney disease stage 3 subtype: stage 3a (GFR 45-59) Qualified Code(s): N18.31 - Chronic kidney disease, stage 3a (2) Hypertension: Code(s): I10 - Essential (primary) hypertension Qualifiers: Hypertension type: renovascular hypertension Qualified Code(s): I15.0 - Renovascular hypertension Plan Alex has chronic kidney disease most likely from vascular disease. He also had the loss of GFR from his partial nephrectomy. He is known to have bypasses for his PAD. He has a biopsy-proven clear cell renal cancer. He underwent cryoablation. His follow up MRI showed no convincing evidence for residual recurrent disease. He may lose further GFR, his labs from AM pending. He should remain well hydrated. I will do a Doppler of his renal arteries and shall consider doing a split study of his kidney function after his current renal cancer issues are resolved. He avoids nonsteroidal anti-inflammatory medications. He should remain well hydrated. I answered all his questions. Follow-up blood work and urine studies ordered. Orders: Orders Creatinine Today I10 - Essential (primary) hypertension, N18.30 - Chronic kidney disease, stage 3 unspecified Blood Urea Nitrogen Today I10 - Essential (primary) hypertension, N18.30 - Chronic kidney disease, stage 3 unspecified Electrolytes Today I10 - Essential (primary) hypertension, N18.30 - Chronic kidney disease, stage 3 unspecified Coding Level of Care Code Est Pt Level 4 (93405) Diagnoses Stage 3a chronic kidney disease N18.31 Chronic kidney disease stage 3 subtype: stage 3a (GFR 45-59) Renovascular hypertension I15.0 Hypertension type: renovascular hypertension Results Reviewed Nephrology Results: Hgb 15.7 g/dl (14.0-18.0) 04/04/23 WBC 8.2 X10*3/uL (4.8-10.8) 04/04/23 Plt Count 204 X10*3/uL (160-400) 04/04/23 Sodium 137 mmol/L (135-145) 04/04/23 Potassium 5.1 mmol/L (3.3-5.1) 04/04/23 Chloride 108 mmol/L (96-108) 04/04/23 Carbon Dioxide 19 mmol/L (22-29) L 04/04/23 BUN 24 mg/dL (9-16) H 04/04/23 Creatinine 1.23 mg/dL (0.5-1.4) 04/04/23 Calcium 9.6 mg/dL (8.4-10.2) 04/04/23 Urine Protein Negative mg/dL (Neg-Trace) 05/26/23 Renal US 06/29/23
[2023-07-19 13:31] VITALS: BP 130/74; PULSE 57; O2SAT 97; BMI 33.0
== END 2023-07-19 14:18 | disposition home or self-care (01) ==
PROVIDERS: PCP Internal Medicine; Visit Provider Internal Medicine Nephrology
DX: N18.31 Chronic kidney disease, stage 3a (principal); I15.0 Renovascular hypertension
CPT/HCPCS: 99214

== ENCOUNTER 2023-08-23 11:38 | Outpatient (REF) | payer MEDICARE, SELFPAY ==
[2023-08-23 14:56] LABS: Appearance Urine Clear; Color Urine Yellow; Glucose Urine UA Negative (Negative); Leukocyte Esterase Urine Negative (Negative); Nitrite Urine Negative (Negative); Urine Blood Negative (Negative); Urine Ketones Negative (Negative); Urine Protein Negative (Neg-Trace)
[2023-08-23 15:03] LABS: Bacteria Urine None Seen (None Seen); Hyaline Casts Urine 0-2 /LPF (0-2); RBC Urine 0-2 /HPF (0-2); Squamous Epithelial Cell Urine 0-2 /HPF (0-2); WBC Urine 0-5 /HPF (0-5)
== END 2023-08-23 11:39 | disposition home or self-care (01) ==
LOC: HO.CHCLNP 11:38
PROVIDERS: Visit Provider Internal Medicine
DX: R10.9 Unspecified abdominal pain (principal)
CPT/HCPCS: 81001

== ENCOUNTER 2023-08-30 06:53 | Emergency (ER) | payer MEDICARE, SELFPAY ==
--- NOTE | ~2023-08-30 | US_ITS ---
EXAMINATION: US VENOUS ULTRASOUND WITH DOPPLER LOWER EXTREMITY, RIGHT CLINICAL INFORMATION: Pain and swelling COMPARISON: None available. TECHNIQUE: Ultrasound of the deep veins is performed from the hip to the calf with compression sonography and color and pulse Doppler assessment. Spectral analysis with color-flow imaging is performed. FINDINGS: There is normal color flow, compression, phasic flow and augmentation, in the deep vessels of the right lower extremity from the level of the right common femoral vein, down to the calf. Some portions of the femoral vein are not clearly seen due to swelling and edema. The peroneal veins cannot clearly be seen due to edema but no indirect evidence for obstruction. No evidence for adjacent fluid collections or masses. US/US venous duplex LE RT IMPRESSION: Limited study with no evidence for DVT.
[2023-08-30 07:17] VITALS: BP 152/68; PULSE 61; RESP 18; TEMP 36.4; O2SAT 97; BMI 33.0
[2023-08-30 07:43] LABS: MANUAL DIFF FLAG NO
[2023-08-30 07:52] LABS: Basophils Absolute Auto 0.1 X10*3/uL (0.0-0.2); Basophils Percent Auto 0.6 % (0-2); Eosinophils Absolute Auto 0.3 X10*3/uL (0.0-0.4); Eosinophils Percent Auto 3.5 % (0-4); Hematocrit 43.8 % (42.0-52.0); Hemoglobin 14.4 g/dl (14.0-18.0); Imm Gran Abs Auto 0.04 X10*3/uL (0.00-0.03); Imm Gran Pct Auto 0.4 % (0.0-0.4); Lymphocytes Absolute Auto 1.2 X10*3/uL (1.2-4.9); Lymphocytes Percent Auto 12.7 % (20-40); Mean Corpuscular HGB Conc 32.9 g/dl (31.0-36.0); Mean Corpuscular Hemoglobin 32.2 pg (27.0-33.0); Monocytes Percent Auto 10.6 % (2-11); Neutrophils Absolute Auto 6.5 x10*3/uL (2.0-8.3); Neutrophils Percent Auto 72.2 % (45-73); Platelet Count 271 X10*3/uL (160-400); Red Blood Count 4.47 X10*6/uL (4.60-5.80); Red Cell Distribution Width 13.9 % (11.0-16.0)
[2023-08-30 07:56] LABS: Anion Gap 15 (12-20); Blood Urea Nitrogen 23 mg/dL (9-16); Calcium 9.4 mg/dL (8.4-10.2); Carbon Dioxide 21 mmol/L (22-29); Chloride 108 mmol/L (96-108); Creatinine Clr Calc Pharmacy 59.2; Estimated Glomerular Filt Rate 49; Glucose Random 93 mg/dL (60-115); Potassium 4.6 mmol/L (3.3-5.1); Sodium 139 mmol/L (135-145)
[2023-08-30 08:04] LABS: B Type Natriuretic Peptide 156 pg/mL (<100)
--- NOTE | 2023-08-30 09:24 | ED.EXTPRO ---
HPI - Extremity Problem General Chief complaint: Extremity Problem Stated complaint: swollen leg, unable to walk properly on it Time Seen by Provider: 08/30/23 09:15 Source: patient Mode of arrival: ambulatory Limitations: no limitations History of Present Illness HPI Narrative: 78-year-old male with history of CKD, paroxysmal AFib on Eliquis, renal cell carcinoma status post excision, diverticulitis status post colostomy and reversal, HTN, AAA, CAD status post cardiac catheterization, peripheral vascular disease status post multiple revascularization procedures in the past who presents to the ER for evaluation of right lower leg swelling, redness, pain that has been worsening over the last 2 weeks. Denies any injury or trauma to the area. He has been compliant with his Eliquis. He states the leg is warm and tender to touch. He denies any calf pain. He denies any open wounds. He has not diabetic. Denies history of cellulitis in the past. Denies fevers. MD Complaint: extremity pain and extremity swelling Onset (ago): week(s) (2) Pain Consistency: constant Location: right and lower extremity Quality: aching Radiation: proximal Relieving factors: rest and other (Elevation) Exacerbating factors: walking and palpation Associated symptoms: denies other symptoms Related Data Home Medications ?Medication ?Instructions ?Recorded ?Confirmed docusate sodium 100 mg capsule 100 mg PO DAILY 08/17/21 03/02/23 lisinopril 30 mg tablet 30 mg PO DAILY 08/17/21 03/02/23 melatonin 3 mg tablet (Melatin) 1.5 mg PO BEDTIME 08/17/21 03/02/23 apixaban 5 mg tablet (Eliquis) 5 mg PO BID 01/27/22 03/02/23 atorvastatin 80 mg tablet 80 mg PO DAILY 01/27/22 03/02/23 furosemide 40 mg tablet 40 mg PO DAILY 01/27/22 03/02/23 sertraline 50 mg tablet 50 mg PO DAILY 07/06/22 03/02/23 metoprolol tartrate 50 mg tablet 50 mg PO BID 10/24/22 03/02/23 quetiapine 25 mg tablet 25 mg PO BID 12/28/22 03/02/23 clonazepam 1 mg tablet 1 mg PO BEDTIME PRN 03/02/23 tamsulosin 0.4 mg capsule 0.4 mg PO DAILY 03/07/23 cilostazol 50 mg tablet 50 mg PO BID 03/27/23 Previous Rx's ?Medication ?Instructions ?Recorded gabapentin 100 mg capsule See Rx Instructions PO BEDTIME #90 12/28/22 caps clopidogrel 75 mg tablet 75 mg PO DAILY #90 tabs 06/22/23 cephalexin 500 mg capsule 500 mg PO Q6H 7 days #28 caps 08/30/23 doxycycline hyclate 100 mg tablet 100 mg PO BID #14 tabs 08/30/23 Allergies Allergy/AdvReac Type Severity Reaction Status Date / Time No Known Allergies Allergy Verified 08/30/23 07:19 [No Known Allergies*] Review of Systems Review of Systems: Yes all other systems are reviewed and are negative [facility] Past Medical History Medical History Hypersomnia Snoring Neuropathy Atherosclerotic cardiovascular disease History of alcohol abuse History of COVID-19 On beta jose at home COPD (chronic obstructive pulmonary disease) On anticoagulant therapy History of atrial fibrillation PVD (peripheral vascular disease) Renal cell carcinoma Hypertension Depression Anxiety Diverticulitis Surgical History H/O cardiac catheterization History of colectomy S/P femoral-femoral bypass surgery Social History Social History Household Members: Spouse Housing: House Do you presently have visiting nurse or other home services: No Alcohol intake: never Patient Tobacco Use Status: Former Tobacco user Substance Use Type: Marijuana Advance Directives: No Advance Directives Information Provided: No Advance Directives Date on File: 06/09/21 Do you have a plan to hurt others: No Plan service: Yes Current occupational status: retired Physical Exam Vital Signs: Vital Signs: Last Vital Signs Temp 97.6 F 08/30/23 07:17 Pulse 61 08/30/23 07:17 Resp 18 08/30/23 07:17 BP 152/68 H 08/30/23 07:17 Pulse Ox 97 08/30/23 07:17 O2 Del Method Room Air 08/30/23 07:17 BMI result Body Mass Index 33.0 Appearance: Alert elderly male. Oriented X3. No acute distress. Head: normocephalic, atraumatic. Eyes: Pupils equal, round and reactive to light. ENT: Pharynx normal. No tonsillar swelling or exudate. Neck: Normal inspection. Neck supple. CVS: Normal heart rate and rhythm. Pulses normal. Respiratory: No respiratory distress. Breath sounds normal. Abdomen: Obese, Soft and nontender. +BS x4. well healed longitudinal surgical scar and LLQ scar Skin: Skin warm and dry. Normal skin color. Normal skin turgor. No rashes. Extremities: RLE with moderate erythema of the lower leg to the mid mak w/ warmth, tenderness and shiny skin. 2+ edema of the ankle, foot and lower 1/3 of the leg. warm and well perfused with 1+ DP pulse. Neuro/psych: Oriented X 3. No motor deficit. No sensory deficit. CN II-XII intact. Normal speech and cognition. Medications Administered Discontinued Medications Generic Name Dose Route Start Last Admin Trade Name Freq PRN Reason Stop Dose Admin Cephalexin HCl 500 mg 08/30/23 09:36 08/30/23 09:43 Cephalexin 500 Mg Capsule PO 08/30/23 09:37 500 mg ONCE ONE Administration Doxycycline Monohydrate 100 mg 08/30/23 09:36 08/30/23 09:43 Doxycycline Monohydrate 100 Mg Capsule PO 08/30/23 09:37 100 mg ONCE ONE Administration Medical Decision Making Medical Decision Making [facility] Narrative: 78-year-old male with history of AFib on Eliquis, peripheral vascular disease status post multiple revascularization procedures in the past who presents to the ER for evaluation of right lower extremity pain, swelling, redness, and warmth for the last 2 weeks. No fevers. He has not diabetic. No open wounds. Exam is consistent with acute cellulitis of the lower leg. The foot is warm and well perfused with 1+ distal pulse. His labs showed no leukocytosis. His vital signs are stable while in the emergency department. Will start on oral Keflex and doxycycline for broad coverage. He was given instructions on diagnosis and management as well as return precautions. He is stable for discharge home. Differential Diagnosis Differential Diagnoses: The differential diagnosis associated with the presentation includes Acute cellulitis, DVT, ischemic leg Admission/Observation Consideration of admission/observation: Escalation of care including admission/observation considered Lab Data [facility] Lab Attestation statement: I reviewed the patient's lab results. No leukocytosis, mild BUN elevation 08/30/23 07:39 08/30/23 07:39 Labs: Lab Results 08/30/23 Range/Units 07:39 WBC 9.0 (4.8-10.8) X10*3/uL RBC 4.47 L (4.60-5.80) X10*6/uL Hgb 14.4 (14.0-18.0) g/dl Hct 43.8 (42.0-52.0) % MCV 98.0 (80.0-98.0) fL MCH 32.2 (27.0-33.0) pg MCHC 32.9 (31.0-36.0) g/dl RDW 13.9 (11.0-16.0) % Plt Count 271 D (160-400) X10*3/uL MPV 10.0 (9.4-12.4) fL Immature Gran % (Auto) 0.4 (0.0-0.4) % Neut % (Auto) 72.2 (45-73) % Lymph % (Auto) 12.7 L (20-40) % [place] % (Auto) 10.6 (2-11) % Eos % (Auto) 3.5 (0-4) % Baso % (Auto) 0.6 (0-2) % Lymph # (Auto) 1.2 (1.2-4.9) X10*3/uL [place] # (Auto) 1.0 (0.1-1.2) X10*3/uL Eos # (Auto) 0.3 (0.0-0.4) X10*3/uL Baso # (Auto) 0.1 (0.0-0.2) X10*3/uL Abs Immat Gran (auto) 0.04 H (0.00-0.03) X10*3/uL Absolute Neuts (auto) 6.5 (2.0-8.3) x10*3/uL Absolute Nucleated RBC 0.000 (0.0-0.012) X10*3/uL Nucleated RBC % (auto) 0.0 (0.0-0.2) /100WBC Sodium 139 (135-145) mmol/L Potassium 4.6 (3.3-5.1) mmol/L Chloride 108 (96-108) mmol/L Carbon Dioxide 21 L (22-29) mmol/L Anion Gap 15 (12-20) BUN 23 H (9-16) mg/dL Creatinine 1.40 (0.5-1.4) mg/dL Estim Creat Clear Calc 59.2 Estimated GFR 49 Random Glucose 93 (60-115) mg/dL Calcium 9.4 (8.4-10.2) mg/dL B-Natriuretic Peptide 156 H (<100) pg/mL Independent Interpretation I performed an independent interpretation of an: Ultrasound Interpretation: no DVT, agree w/ radiology read Radiology Impression Discussion of test interpretation with radiology: I have reviewed the radiologist's reading. Radiologist Impression: EXAMINATION: US VENOUS ULTRASOUND WITH DOPPLER LOWER EXTREMITY, RIGHT CLINICAL INFORMATION: Pain and swelling COMPARISON: None available. TECHNIQUE: Ultrasound of the deep veins is performed from the hip to the calf with compression sonography and color and pulse Doppler assessment. Spectral analysis with color-flow imaging is performed. FINDINGS: There is normal color flow, compression, phasic flow and augmentation, in the deep vessels of the right lower extremity from the level of the right common femoral vein, down to the calf. Some portions of the femoral vein are not clearly seen due to swelling and edema. The peroneal veins cannot clearly be seen due to edema but no indirect evidence for obstruction. No evidence for adjacent fluid collections or masses. US/US venous duplex LE RT IMPRESSION: Limited study with no evidence for DVT. External Record Review External record reviewed: Outpatient record, Prior outpatient labs and Prior outpatient radiology Prescription Management I considered prescription management with: Pain Medication and Antibiotic Chronic Conditions Patient?s care impacted by: Hypertension and Other (AFib, PVD) Critical Care Time Critical Care Time Critical Care Time: No Discharge Plan Discharge Clinical Impression: Cellulitis of leg, right Patient Disposition: Home, Self-Care Instructions: Cellulitis (DC) Additional Instructions: Your lab workup today was unremarkable Your ultrasound did not show any blood clot You have a skin infection of your leg called cellulitis Take the prescribed antibiotics as directed, complete the entire course and do not miss any doses Elevate your leg whenever possible to help with pain and swelling If you develop new or worsening symptoms call 911 or come back to the ER for further evaluation. Prescriptions: New doxycycline hyclate 100 mg tablet 100 mg PO BID Qty: 14 0RF cephalexin 500 mg capsule 500 mg PO Q6H 7 Days Qty: 28 0RF No Action cilostazol 50 mg tablet 50 mg PO BID clopidogrel 75 mg tablet 75 mg PO DAILY Qty: 90 0RF atorvastatin 80 mg tablet 80 mg PO DAILY Eliquis 5 mg tablet 5 mg PO BID furosemide 40 mg tablet 40 mg PO DAILY sertraline 50 mg tablet 50 mg PO DAILY lisinopril 30 mg tablet 30 mg PO DAILY melatonin [Melatin] 3 mg tablet 1.5 mg PO BEDTIME docusate sodium 100 mg capsule 100 mg PO DAILY quetiapine 25 mg tablet 25 mg PO BID gabapentin 100 mg capsule See Rx Instructions PO BEDTIME Qty: 90 6RF Rx Instructions: 1-3 caps orally bedtime; clonazepam 1 mg tablet 1 mg PO BEDTIME PRN metoprolol tartrate 50 mg tablet 50 mg PO BID tamsulosin 0.4 mg capsule 0.4 mg PO DAILY Print Language: Sami
[2023-08-30] MEDS: Doxycycline Monohydrate 100 MG CAPSULE PO (09:43)
[2023-08-30] MEDS: cephALEXin 500 MG CAPSULE PO (09:43)
[2023-08-30 10:28] VITALS: BP 152/68; PULSE 61; RESP 18; TEMP 36.4; O2SAT 97
== END 2023-08-30 10:28 | disposition home or self-care (01) ==
PROVIDERS: Emergency Provider Emergency Medicine; PCP Internal Medicine
DX: L03.115 Cellulitis of right lower limb (principal); R60.0 Localized edema; M79.604 Pain in right leg; I12.9 Hypertensive chronic kidney disease with stage 1 through stage 4 chronic kidney disease, or unspecified chronic kidney disease; N18.30 Chronic kidney disease, stage 3 unspecified; I48.0 Paroxysmal atrial fibrillation; C64.9 Malignant neoplasm of unspecified kidney, except renal pelvis; I25.10 Atherosclerotic heart disease of native coronary artery without angina pectoris; Z79.01 Long term (current) use of anticoagulants; Z79.899 Other long term (current) drug therapy; Z87.891 Personal history of nicotine dependence
CPT/HCPCS: 36415; 80048; 83880; 85025; 93971; 99282; 99284

== ENCOUNTER 2023-09-04 14:06 | Emergency (ER) | payer MEDICARE, SELFPAY ==
[2023-09-04 14:26] VITALS: BP 123/53; PULSE 60; RESP 18; TEMP 36.6; O2SAT 96; BMI 34.3
--- NOTE | 2023-09-04 14:28 | ED_ITS ---
HPI - General Adult General Chief complaint: Extremity Injury, Lower Stated complaint: cellulitis r leg Time Seen by Provider: 09/04/23 18:12 Source: patient Mode of arrival: ambulatory Limitations: no limitations History of Present Illness HPI narrative: Patient is a 78 year old assigned male at with a history of CKD, HTN, atrial fib on anticoagulant medication, and renal cell carcinoma presenting to the emergency department today with right lower leg pain and swelling. Patient states that over the last few days he has noticed that his right lower leg is swollen, warm, and painful. Patient denies any dizziness, lightheadedness, abdominal pain, nausea, vomiting, fever, chills, blurry vision, double vision, loss of vision, chest pain, difficulty breathing, shortness of breath, back pain, night sweats, pain with urination, increased urinary frequency, increased urinary urgency, blood in her urine or stool, syncope or a near syncopal episode, recent trauma or falls, bowel incontinence, bladder incontinence, bowel retention, bladder retention, or any other complaints at this time. Onset (ago): day(s) Location: right and lower extremity Severity: mild Severity scale (1-10): 4 Relieving factors: none Exacerbating factors: none Associated symptoms: denies other symptoms Treatments prior to arrival: none Related Data Home Medications ?Medication ?Instructions ?Recorded ?Confirmed docusate sodium 100 mg capsule 100 mg PO DAILY 08/17/21 09/05/23 lisinopril 30 mg tablet 30 mg PO DAILY 08/17/21 09/05/23 melatonin 3 mg tablet (Melatin) 1.5 mg PO BEDTIME 08/17/21 09/05/23 apixaban 5 mg tablet (Eliquis) 5 mg PO BID 01/27/22 09/05/23 atorvastatin 80 mg tablet 80 mg PO DAILY 01/27/22 09/05/23 furosemide 40 mg tablet 40 mg PO DAILY 01/27/22 09/05/23 sertraline 50 mg tablet 50 mg PO DAILY 07/06/22 09/05/23 metoprolol tartrate 50 mg tablet 50 mg PO BID 10/24/22 09/05/23 quetiapine 25 mg tablet 25 mg PO BID 12/28/22 09/05/23 clonazepam 1 mg tablet 1 mg PO BEDTIME PRN 03/02/23 09/05/23 tamsulosin 0.4 mg capsule 0.4 mg PO DAILY 03/07/23 09/05/23 cilostazol 50 mg tablet 50 mg PO BID 03/27/23 09/05/23 clonazepam 0.5 mg tablet mg PO 09/05/23 09/05/23 Previous Rx's ?Medication ?Instructions ?Recorded gabapentin 100 mg capsule See Rx Instructions PO BEDTIME #90 12/28/22 caps cephalexin 500 mg capsule 500 mg PO Q6H 7 days #28 caps 08/30/23 doxycycline hyclate 100 mg tablet 100 mg PO BID #14 tabs 08/30/23 Allergies Allergy/AdvReac Type Severity Reaction Status Date / Time No Known Allergies Allergy Verified 09/05/23 08:20 [No Known Allergies*] Review of Systems 2 Constitutional: Constitutional: Reports no additional constitutional complaints, Denies chills, Denies fever(s) and Denies night sweats Eyes: Eyes: Reports no additional eye complaints, Denies blurry vision, Denies change in vision, Denies diplopia, Denies eye discharge, Denies loss of vision and Denies eye pain ENT: Denies dizziness Cardiovascular: Cardiovascular: Reports no additional cardiovascular complaints, Denies chest pain, Denies lightheadedness, Denies Loss of Consciousness and Denies dyspnea Respiratory: Respiratory: Reports no additional respiratory complaints and Denies dyspnea Gastrointestinal: Gastrointestinal: Reports no additional gastrointestinal complaints, Denies abdominal pain, Denies melena, Denies hematochezia, Denies change in bowel habits and Denies change in stool character Genitourinary: Genitourinary: Reports no additional male genitourinary complaints, Denies hematuria, Denies oliguria, Denies difficulty urinating, Denies dysuria, Denies urinary frequency, Denies urinary hesitancy, Denies urinary incontinence and Denies urinary urgency Musculoskeletal: Musculoskeletal: Reports no additional musculoskeletal complaints, Denies numbness and Denies tingling Comments: right lower leg pain, warmth, and swelling Neurologic: Denies dizziness, Denies loss of vision, Denies numbness and Denies tingling Psychiatric: Psychiatric: Reports no additional psychiatric complaints Endocrine: Endocrine: Reports no additional endocrine complaints Hematologic/Lymphatic: Hematologic/Lymphatic: Reports no additional hematologic/lymphatic complaints Allergic/Immunologic: Allergic/Immunologic: Reports no additional allergic/immunologic complaints PMFSH Past Medical History Attestation statement: The following information was validated with the patient. Source: old records reviewed and nursing notes reviewed Medical History Hypersomnia Snoring Neuropathy Atherosclerotic cardiovascular disease History of alcohol abuse History of COVID-19 On beta jose at home COPD (chronic obstructive pulmonary disease) On anticoagulant therapy History of atrial fibrillation PVD (peripheral vascular disease) Renal cell carcinoma Hypertension Depression Anxiety Diverticulitis Surgical History H/O cardiac catheterization History of colectomy S/P femoral-femoral bypass surgery Social History Social History Household Members: Spouse Housing: House Do you presently have visiting nurse or other home services: No Alcohol intake: never Patient Tobacco Use Status: Former Tobacco user Substance Use Type: Marijuana Advance Directives Date on File: 06/09/21 service: Yes Current occupational status: retired Physical Exam ED Vital Signs: BMI result Body Mass Index 34.3 Const General: cooperative, no acute distress, alert and awake Nutritional Appearance: well nourished Orientation/consciousness: patient oriented x3 Limitations: no limitations HENMT Head: Yes normal to inspection and Yes atraumatic Ears: hearing grossly normal bilaterally and external ears normal General nose exam: Normal external nose present, no nasal discharge noted and no epistaxis Face and sinus: Yes normal facial exam, No abrasion and No laceration Mouth: Normal oral and palatal mucosa present, no drooling and no muffled voice Eyes General: appearance normal, both eyes and all related structures Periorbital: periorbital findings normal Eyelids: Yes eyelids normal Conjunctivae: conjunctivae normal Pupils: Equal, round and reactive pupils present EOM: EOMs intact bilaterally Neck Neck: Yes normal visual inspection, Yes full ROM and Yes no lymphadenopathy Chest Chest palpation & inspection: normal inspection of the chest Resp Effort & Inspection: normal respiratory effort and able to speak in complete sentences GI Inspection: Yes normal to inspection Neuro General: patient oriented x3 and moves all extremities Cranial nerves: Yes Equal, round and reactive pupils present Cognition (Neuro): normal cognition Motor exam (neuro): 5/5 motor strength present throughout Sensory Exam: Normal double simultaneous stimulation for sensation Coordination: [id number] test normal Extrem Other: right lower extremity has minimal swelling with warmth and pain with palpation General: Yes full ROM and Yes capillary refill normal Psych Appearance: grossly normal Mental Status: mental status grossly normal Affect: normal affect Attitude: cooperative Thought process: Normal thought process present Thought content: Normal thought content present Insight: Good insight present (Psych) Course Course Course Narrative: RME performed by Frances Ramos PA-C. Patient is a 78 year old assigned male at presenting to the emergency department with right lower leg redness and warmth. Patient has a history of vascular surgeries on his lower extremities. Patient states that he saw his doctor who recommended he come in to the hospital due to his right lower leg appearing infected. Patient is on apixaban. Detailed physical exam and review of systems are deferred to the medical office secretary. Labs and imaging ordered. Patient placed back in the waiting room pending room availability and results. Medical Decision Making Medical Decision Making [facility] Narrative: Patient is a 78 year old assigned male at with a history of CKD, HTN, atrial fib on anticoagulant medication, and renal cell carcinoma presenting to the emergency department today with right lower extremity pain, swelling, and warmth. Patient's limited physical exam performed in triage showed a mildly swollen right lower extremity with warmth and pain to palpation. Patient's right lower leg US from 08/29 was negative for any DVT. Patient's blood work was showed an elevated ESR. Patient left the department without completing treatment and before his CMP could be drawn/resulted. Patient left the department before myself or any of the other emergency department clinicians could explain to or review with the patient; physical exam findings, test results, need or lack there of for additional testing, need or lack there of to perform a procedure, need or lack there of for hospital admission / transfer, need or lack there of for prescription medication, treatment options, or a treatment plan. Differential Diagnosis Differential Diagnoses: The differential diagnosis associated with the presentation includes Cellulitis Leg pain Leg swelling Admission/Observation Consideration of admission/observation: Escalation of care including admission/observation considered Patient would have been admitted to the hospital had he completed his work up and it had any findings where hospital admission was appropriate, his clinical presentation warranted hospital admission, had myself or any other emergency purchasing department clerk had the ability to discuss need or lack there of for hospital admission, and the patient hadn't left the department without completing treatment. Lab Data [facility] Lab Attestation statement: I reviewed the patient's lab results. My interpretation of these results are in the MDM Rationale portion of this note. 09/04/23 16:22 09/04/23 16:22 Labs: Lab Results 09/04/23 Range/Units 16:22 WBC 7.7 (4.8-10.8) X10*3/uL RBC 4.48 L (4.60-5.80) X10*6/uL Hgb 14.3 (14.0-18.0) g/dl Hct 43.7 (42.0-52.0) % MCV 97.5 (80.0-98.0) fL MCH 31.9 (27.0-33.0) pg MCHC 32.7 (31.0-36.0) g/dl RDW 13.8 (11.0-16.0) % Plt Count 312 (160-400) X10*3/uL MPV 9.8 (9.4-12.4) fL Immature Gran % (Auto) 0.3 (0.0-0.4) % Neut % (Auto) 80.8 H (45-73) % Lymph % (Auto) 11.8 L (20-40) % [place] % (Auto) 5.2 (2-11) % Eos % (Auto) 1.3 (0-4) % Baso % (Auto) 0.6 (0-2) % Lymph # (Auto) 0.9 L (1.2-4.9) X10*3/uL [place] # (Auto) 0.4 (0.1-1.2) X10*3/uL Eos # (Auto) 0.1 (0.0-0.4) X10*3/uL Baso # (Auto) 0.1 (0.0-0.2) X10*3/uL Abs Immat Gran (auto) 0.02 (0.00-0.03) X10*3/uL Absolute Neuts (auto) 6.2 (2.0-8.3) x10*3/uL Absolute Nucleated RBC 0.000 (0.0-0.012) X10*3/uL Nucleated RBC % (auto) 0.0 (0.0-0.2) /100WBC ESR 28 H (0-15) MM/HR PT 14.9 H (11.1-13.3) SEC INR 1.2 H (0.9-1.1) APTT 34.5 (26.0-36.8) SEC Sodium Cancelled Potassium Cancelled Chloride Cancelled Carbon Dioxide Cancelled Anion Gap Cancelled BUN Cancelled Creatinine Cancelled Estim Creat Clear Calc Cancelled Estimated GFR Cancelled Random Glucose Cancelled Lactic Acid 1.6 (0.5-2.0) mmol/L Calcium Cancelled Magnesium Cancelled Total Bilirubin Cancelled AST Cancelled ALT Cancelled Alkaline Phosphatase Cancelled C-Reactive Protein Cancelled Total Protein Cancelled Albumin Cancelled Independent Interpretation I performed an independent interpretation of an: Ultrasound (performed on 08/29) Interpretation: My interpretation of this 08/29 study is in agreement with the radiologist's impression of this imaging study. - EXAMINATION: US VENOUS ULTRASOUND WITH DOPPLER LOWER EXTREMITY, RIGHT CLINICAL INFORMATION: Pain and swelling COMPARISON: None available. TECHNIQUE: Ultrasound of the deep veins is performed from the hip to the calf with compression sonography and color and pulse Doppler assessment. Spectral analysis with color-flow imaging is performed. FINDINGS: There is normal color flow, compression, phasic flow and augmentation, in the deep vessels of the right lower extremity from the level of the right common femoral vein, down to the calf. Some portions of the femoral vein are not clearly seen due to swelling and edema. The peroneal veins cannot clearly be seen due to edema but no indirect evidence for obstruction. No evidence for adjacent fluid collections or masses. US/US venous duplex LE RT IMPRESSION: Limited study with no evidence for DVT. Dictated By: Ankur Keene MD Signed By: Electronically signed by Ankur Keene MD 08/30/23 0944 Radiology Impression Discussion of test interpretation with radiology: I have reviewed the radiologist's reading. Chronic Conditions Patient?s care impacted by: Hypertension Discharge Plan Discharge Clinical Impression: Leg pain Patient Disposition: Left W/O Completing Treatment Prescriptions: No Action cilostazol 50 mg tablet 50 mg PO BID atorvastatin 80 mg tablet 80 mg PO DAILY Eliquis 5 mg tablet 5 mg PO BID furosemide 40 mg tablet 40 mg PO DAILY sertraline 50 mg tablet 50 mg PO DAILY doxycycline hyclate 100 mg tablet 100 mg PO BID Qty: 14 0RF cephalexin 500 mg capsule 500 mg PO Q6H 7 Days Qty: 28 0RF lisinopril 30 mg tablet 30 mg PO DAILY melatonin [Melatin] 3 mg tablet 1.5 mg PO BEDTIME docusate sodium 100 mg capsule 100 mg PO DAILY quetiapine 25 mg tablet 25 mg PO BID gabapentin 100 mg capsule See Rx Instructions PO BEDTIME Qty: 90 6RF Rx Instructions: 1-3 caps orally bedtime; clonazepam 1 mg tablet 1 mg PO BEDTIME PRN clonazepam 0.5 mg tablet PO metoprolol tartrate 50 mg tablet 50 mg PO BID tamsulosin 0.4 mg capsule 0.4 mg PO DAILY Discharge Date/Time: 09/04/23 18:51
[2023-09-04 16:26] LABS: MANUAL DIFF FLAG NO
[2023-09-04 16:30] LABS: Basophils Absolute Auto 0.1 X10*3/uL (0.0-0.2); Basophils Percent Auto 0.6 % (0-2); Eosinophils Absolute Auto 0.1 X10*3/uL (0.0-0.4); Eosinophils Percent Auto 1.3 % (0-4); Hematocrit 43.7 % (42.0-52.0); Hemoglobin 14.3 g/dl (14.0-18.0); Imm Gran Abs Auto 0.02 X10*3/uL (0.00-0.03); Imm Gran Pct Auto 0.3 % (0.0-0.4); Lymphocytes Absolute Auto 0.9 X10*3/uL (1.2-4.9); Lymphocytes Percent Auto 11.8 % (20-40); Mean Corpuscular HGB Conc 32.7 g/dl (31.0-36.0); Mean Corpuscular Hemoglobin 31.9 pg (27.0-33.0); Mean Corpuscular Volume 97.5 fL (80.0-98.0); Mean Platelet Volume 9.8 fL (9.4-12.4); Monocytes Absolute Auto 0.4 X10*3/uL (0.1-1.2); Monocytes Percent Auto 5.2 % (2-11); Neutrophils Absolute Auto 6.2 x10*3/uL (2.0-8.3); Neutrophils Percent Auto 80.8 % (45-73); Platelet Count 312 X10*3/uL (160-400); Red Blood Count 4.48 X10*6/uL (4.60-5.80); Red Cell Distribution Width 13.8 % (11.0-16.0); White Blood Count 7.7 X10*3/uL (4.8-10.8)
[2023-09-04 16:34] LABS: INTERNATIONAL NORM RATIO 1.2 (0.9-1.1); Prothrombin Time 14.9 SEC (11.1-13.3)
[2023-09-04 16:37] LABS: Partial Thromboplastin Time 34.5 SEC (26.0-36.8)
[2023-09-04 16:38] LABS: Lactic Acid 1.6 mmol/L (0.5-2.0)
[2023-09-04 17:06] LABS: Erythrocyte Sedimentation Rate 28 MM/HR (0-15)
== END 2023-09-04 18:51 | disposition left against medical advice (07) ==
PROVIDERS: Physician Assistant Medical; Emergency Provider Emergency Medicine; PCP Internal Medicine
DX: M79.661 Pain in right lower leg (principal); M79.89 Other specified soft tissue disorders; I12.9 Hypertensive chronic kidney disease with stage 1 through stage 4 chronic kidney disease, or unspecified chronic kidney disease; N18.9 Chronic kidney disease, unspecified; C64.9 Malignant neoplasm of unspecified kidney, except renal pelvis; I48.91 Unspecified atrial fibrillation; Z79.01 Long term (current) use of anticoagulants
CPT/HCPCS: 36415; 83605; 85025; 85610; 85652; 85730; 87040; 99281; 99283

== ENCOUNTER 2023-09-05 07:49 | Outpatient (AMB) | payer MEDICARE, SELFPAY ==
--- NOTE | 2023-09-05 08:14 | A.OFFVIS_ITS ---
Vital Signs 09/05/23 08:15 Height 6 ft 1 in Weight 251 lb 12.286 oz BMI 33.2 BP 120/62 Blood Pressure Location Lt brachial Position Sitting Pulse 50 Pulse Source Pulse Oximeter Intake Visit Reasons: rs f/u [employer] Required: No Allergies No Known Allergies [No Known Allergies*] Allergy (Verified 09/05/23 08:20) Medication List - Last Reconciled 09/05/23 by ARNOL Aviles apixaban (Eliquis) 5 mg PO BID atorvastatin 80 mg PO DAILY cephalexin 500 mg PO Q6H 7 days cilostazol 50 mg PO BID clonazepam 1 mg PO BEDTIME PRN clonazepam mg PO clopidogrel 75 mg PO DAILY docusate sodium 100 mg PO DAILY doxycycline hyclate 100 mg PO BID furosemide 40 mg PO DAILY gabapentin 1-3 caps orally bedtime; lisinopril 30 mg PO DAILY melatonin (Melatin) 1.5 mg PO BEDTIME metoprolol tartrate 50 mg PO BID quetiapine 25 mg PO BID sertraline 50 mg PO DAILY tamsulosin 0.4 mg PO DAILY HPI HPI rs f/u: Details: Alex is a 78-year-old male past medical history of hypertension, hyperlipidemia, peripheral vascular disease, dilated ascending aorta, coronary artery disease, lad stent, atrial flutter who presents for follow-up. Today he reports his he has heaviness she recently with cellulitis in his right lower extremity. He was in the emergency room last week and he was given prescription for antibiotics. He tells me his cellulitis is no better. He was in the ER yesterday but left prior to full evaluation after a 4 hour wait. His leg is swollen and reddened, no fevers reported. Tells me his antibiotics run out tomorrow and he will be going back to the emergency room at 07:00 tomorrow morning. He has not been having any cardiac symptoms. He denies any chest discomfort at rest or with activity. No concerning shortness of breath. No heart palpitations, lightheadedness, presyncope, syncope, falls. His activity is currently limited by his right leg discomfort. Prior to that he would do routine walking. He does not really engage in exertional type activities. He is taking his meds as directed. No bleeding reported. [facility] Medical History Hypersomnia Snoring Neuropathy Atherosclerotic cardiovascular disease History of alcohol abuse History of COVID-19 On beta jose at home COPD (chronic obstructive pulmonary disease) On anticoagulant therapy History of atrial fibrillation PVD (peripheral vascular disease) Renal cell carcinoma Hypertension Depression Anxiety Diverticulitis Surgical History H/O cardiac catheterization History of colectomy S/P femoral-femoral bypass surgery Social History Household Members: Spouse Housing: House Do you presently have visiting nurse or other home services: No Alcohol intake: never Patient Tobacco Use Status: Former Tobacco user Substance Use Type: Marijuana Advance Directives Date on File: 06/09/21 service: Yes Current occupational status: retired Review of Systems Const All systems reviewed & are unremarkable except as noted in HPI and below ENT Denies dizziness Card Denies chest pain, Denies chest pain at rest, Denies chest pain with activity, Denies rapid heart rate, Denies pedal edema, Denies edema, Reports leg edema, Denies lightheadedness, Denies palpitations, Denies dyspnea, Denies dyspnea on exertion and Denies orthopnea Resp Denies cough, Denies dyspnea and Denies dyspnea on exertion GI Denies hematochezia and Denies change in stool character Musc Details: swelling and redness right lower leg Denies abnormal gait, Reports limited range of motion, Denies muscle cramps, Denies muscle weakness, Denies numbness, Denies radiating pain into limb, Denies stiffness and Denies tingling Neuro Denies abnormal gait, Denies dizziness, Denies numbness and Denies tingling Endo Denies palpitations Physical Exam Vital Signs: Last Vital Signs Pulse 50 09/05/23 08:15 BP 120/62 09/05/23 08:15 BMI result Body Mass Index 33.2 Const General: cooperative, healthy appearing, comfortable and no acute distress Orientation/consciousness: patient oriented x3 Neck Neck: Yes normal visual inspection Resp Effort & Inspection: normal respiratory effort Auscultation: clear to auscultation bilaterally, no crackles, no rales, no rhonchi and no wheezes Cardio Jugular venous distension: no JVD Rate: regular rate Rhythm: regular rhythm Heart sounds: S1 normal heart sound present, S2 normal heart sound present, no murmurs and no rubs Neuro General: patient oriented x3 Extrem Other: swelling, redness to right lower leg, normal appearance to left lower leg - currently on meds for cellulitis Psych Appearance: grossly normal Mental Status: mental status grossly normal Speech and movement: Normal speech and movement present Assessment & Plan Assessment & Plan (1) Paroxysmal atrial fibrillation: Code(s): I48.0 - Paroxysmal atrial fibrillation Category: Medical Plan: History of paroxysmal atrial fibrillation. EKG done last visit showing sinus bradycardia, septal Q-wave, rate 52. Q-wave present on his prior EKG as well. Pulse is very regular on examination today. He is on metoprolol for heart rate control. He is on Eliquis for anticoagulation. No bleeding issues reported. Labs done 08/30/2023 showed creatinine 1.4, hematocrit 43.8. He follows with Nephrology. Continue to follow kidney function. No med changes made today. If he reports symptoms concerning for symptomatic bradycardia his metoprolol dose could be reduced. Cardiology follow-up in 6 months, sooner if needed (2) Coronary artery disease: Code(s): I25.10 - Atherosclerotic heart disease of [place] coronary artery without angina pectoris Category: Medical Plan: History of coronary artery disease with LAD stent, 05/05/2022. He denies chest di scomfort or shortness of breath at this visit. EKG done last visit showed no ischemia. Last echocardiogram done 02/25/2022 show EF 55-60%, unable to assess for wall motion abnormality, ascending aorta 4.1 cm. He is not on aspirin as he is on Eliquis. He has been on Plavix which can be stopped at this time. He is on metoprolol, lisinopril, high-dose atorvastatin with ideal LDL goal less than 70. No recent lipid profile in our system. Will check with his PCP office for lipid profile done there. Signs and symptoms of angina reviewed with him. Emergency care if ever needed for symptoms. (3) Coronary artery calcification seen on CT scan: Code(s): I25.10 - Atherosclerotic heart disease of [place] coronary artery without angina pectoris Category: Medical Plan: History of CAD (4) S/P cardiac cath: Comment: 05/05/2022, left main mild disease, lad proximal 65% stenosis, 1st diagonal 100% stenosis, left circumflex minimal irregularities, RCA mid 50% stenosis, right PDA 50% stenosis, stent placed to the proximal LAD Code(s): Z98.890 - Other specified postprocedural states Category: Medical Plan: As above (5) PVD (peripheral vascular disease): Code(s): I73.9 - Peripheral vascular disease, unspecified Category: Medical Plan: He reports of history of stent in his right femoral region, fem to fem bypass on the left. He has ongoing issues with numbness in his lower extremities. He ambulates steadily. He has been followed by Dr. Mendoza. (6) Hypertension: Code(s): I10 - Essential (primary) hypertension Category: Medical Qualifiers: Hypertension type: renovascular hypertension Qualified Code(s): I15.0 - Renovascular hypertension Plan: Well controlled at this time. No med changes made. (7) Cellulitis: Code(s): L03.90 - Cellulitis, unspecified Category: Medical Plan: Patient was seen in the emergency room last week with cellulitis right lower extremity. He has been on cephalexin and doxycycline. He reports compliance. He tells me his leg is unchanged. On exam and is noted to be swollen, reddened and warm. He denies any fevers. He was in the emergency room yesterday and left prior to fall evaluation. He tells me he waited 4 hours. Instructed him to go to the emergency room today for re-evaluation. He declines. He tells me he will be there at 07:00 tomorrow as he does not want to wait. Informed him that cellulitis can be quite serious and become a systemic infection. He says he understands this which is why he is going back in the morning. Plan Time spent on chart review, documentation, interview and assessment Coding Level of Care Code Est Pt Level 4 (35400) Diagnoses Paroxysmal atrial fibrillation I48.0 Coronary artery disease I25.10 Coronary artery calcification seen on CT scan I25.10 S/P cardiac cath Z98.890 PVD (peripheral vascular disease) I73.9 Renovascular hypertension I15.0 Hypertension type: renovascular hypertension Cellulitis L03.90 Time Spent (min) 28
[2023-09-05 08:15] VITALS: BP 120/62; PULSE 50; BMI 33.2
== END 2023-09-05 08:45 | disposition home or self-care (01) ==
PROVIDERS: PCP Internal Medicine; Visit Provider Nurse Practitioner Family
DX: I48.0 Paroxysmal atrial fibrillation (principal); I25.10 Atherosclerotic heart disease of native coronary artery without angina pectoris; Z98.890 Other specified postprocedural states; I73.9 Peripheral vascular disease, unspecified; I15.0 Renovascular hypertension; L03.90 Cellulitis, unspecified
CPT/HCPCS: 99214

== ENCOUNTER → 2023-09-05 07:49 | Outpatient (BNVA) | payer MEDICARE, SELFPAY | PROVIDERS: PCP Internal Medicine; Visit Provider Nurse Practitioner Family | DX: I48.0 Paroxysmal atrial fibrillation (principal); I25.10 Atherosclerotic heart disease of native coronary artery without angina pectoris; I73.9 Peripheral vascular disease, unspecified; I10 Essential (primary) hypertension; I15.0 Renovascular hypertension; L03.115 Cellulitis of right lower limb; Z79.01 Long term (current) use of anticoagulants; Z95.820 Peripheral vascular angioplasty status with implants and grafts | CPT/HCPCS: 99212 ==

== ENCOUNTER 2023-09-06 07:04 | Emergency (ER) | payer MEDICARE, SELFPAY ==
[2023-09-06 07:12] VITALS: BP 142/64; PULSE 60; RESP 16; TEMP 36.6; O2SAT 95; BMI 33.3
[2023-09-06 07:40] LABS: MANUAL DIFF FLAG NO
[2023-09-06 07:42] LABS: Basophils Absolute Auto 0.1 X10*3/uL (0.0-0.2); Basophils Percent Auto 0.8 % (0-2); Eosinophils Absolute Auto 0.4 X10*3/uL (0.0-0.4); Eosinophils Percent Auto 4.8 % (0-4); Hematocrit 44.7 % (42.0-52.0); Hemoglobin 14.8 g/dl (14.0-18.0); Imm Gran Abs Auto 0.02 X10*3/uL (0.00-0.03); Imm Gran Pct Auto 0.3 % (0.0-0.4); Lymphocytes Absolute Auto 1.5 X10*3/uL (1.2-4.9); Lymphocytes Percent Auto 19.8 % (20-40); Mean Corpuscular HGB Conc 33.1 g/dl (31.0-36.0); Mean Corpuscular Hemoglobin 32.1 pg (27.0-33.0); Mean Platelet Volume 9.5 fL (9.4-12.4); Monocytes Absolute Auto 0.6 X10*3/uL (0.1-1.2); Monocytes Percent Auto 8.2 % (2-11); Neutrophils Absolute Auto 5.1 x10*3/uL (2.0-8.3); Neutrophils Percent Auto 66.1 % (45-73); Platelet Count 357 X10*3/uL (160-400); Red Blood Count 4.61 X10*6/uL (4.60-5.80); Red Cell Distribution Width 13.8 % (11.0-16.0); White Blood Count 7.8 X10*3/uL (4.8-10.8)
[2023-09-06 08:04] LABS: C Reactive Protein 1.82 mg/dL (< or = 0.50)
[2023-09-06 08:10] LABS: B Type Natriuretic Peptide 217 pg/mL (<100)
--- NOTE | 2023-09-06 08:26 | ED_ITS ---
HPI - Extremity Problem General Chief complaint: Skin/Abscess/Foreign Body Stated complaint: R Leg Cellulits Time Seen by Provider: 09/06/23 08:26 Source: patient, RN notes reviewed and old records reviewed Mode of arrival: ambulatory Limitations: no limitations History of Present Illness HPI Narrative: 78-year-old male with a history of paroxysmal AFib on Eliquis renal cell carcinoma status post surgical excision, history of diverticulitis status post colostomy and reversal, HTN, AAA, CAD status post cardiac catheterization, PVD status post multiple revascularization procedures in the past, CKD, recent diagnosis of right lower extremity swelling, redness for the last 3 weeks. Patient was seen here twice in the past week for this. He was initially prescribed Keflex and doxycycline was added on August 29. Patient has not yet completed the antibiotics and he thinks he has a couple of days left. No fever at home. the swelling persists but the redness is better. he elevates the leg daily. MD Complaint: extremity pain and extremity swelling Onset (ago): week(s) Pain Consistency: constant Location: right and lower extremity Quality: aching Radiation: distal Relieving factors: elevation and rest Exacerbating factors: walking and palpation Associated symptoms: denies other symptoms Related Data Home Medications ?Medication ?Instructions ?Recorded ?Confirmed docusate sodium 100 mg capsule 100 mg PO DAILY 08/17/21 09/05/23 lisinopril 30 mg tablet 30 mg PO DAILY 08/17/21 09/05/23 melatonin 3 mg tablet (Melatin) 1.5 mg PO BEDTIME 08/17/21 09/05/23 apixaban 5 mg tablet (Eliquis) 5 mg PO BID 01/27/22 09/05/23 atorvastatin 80 mg tablet 80 mg PO DAILY 01/27/22 09/05/23 furosemide 40 mg tablet 40 mg PO DAILY 01/27/22 09/05/23 sertraline 50 mg tablet 50 mg PO DAILY 07/06/22 09/05/23 metoprolol tartrate 50 mg tablet 50 mg PO BID 10/24/22 09/05/23 quetiapine 25 mg tablet 25 mg PO BID 12/28/22 09/05/23 clonazepam 1 mg tablet 1 mg PO BEDTIME PRN 03/02/23 09/05/23 tamsulosin 0.4 mg capsule 0.4 mg PO DAILY 03/07/23 09/05/23 cilostazol 50 mg tablet 50 mg PO BID 03/27/23 09/05/23 clonazepam 0.5 mg tablet mg PO 09/05/23 09/05/23 Previous Rx's ?Medication ?Instructions ?Recorded gabapentin 100 mg capsule See Rx Instructions PO BEDTIME #90 12/28/22 caps cephalexin 500 mg capsule 500 mg PO Q6H 7 days #28 caps 08/30/23 doxycycline hyclate 100 mg tablet 100 mg PO BID #14 tabs 08/30/23 acetaminophen 300 mg-codeine 30 mg 1 tab PO BID PRN severe pain 09/06/23 tablet (scale score 7-10) #5 tabs cephalexin 500 mg capsule 500 mg PO Q6H #12 caps 09/06/23 doxycycline hyclate 100 mg tablet 100 mg PO BID #6 tabs 09/06/23 Allergies Allergy/AdvReac Type Severity Reaction Status Date / Time No Known Allergies Allergy Verified 09/06/23 07:16 [No Known Allergies*] Review of Systems 2 Review of Systems: Yes all other systems are reviewed and are negative [facility] Past Medical History Medical History Hypersomnia Snoring Neuropathy Atherosclerotic cardiovascular disease History of alcohol abuse History of COVID-19 On beta jose at home COPD (chronic obstructive pulmonary disease) On anticoagulant therapy History of atrial fibrillation PVD (peripheral vascular disease) Renal cell carcinoma Hypertension Depression Anxiety Diverticulitis Surgical History H/O cardiac catheterization History of colectomy S/P femoral-femoral bypass surgery Social History Social History Household Members: Spouse Housing: House Do you presently have visiting nurse or other home services: No Alcohol intake: never Patient Tobacco Use Status: Former Tobacco user Smoked in Last 30 Days: No Use of substances other than those prescribed or required for medical reasons: No Substance Use Type: Marijuana Advance Directives: No Advance Directives Information Provided: Yes Advance Directives Date on File: 06/09/21 service: Yes Current occupational status: retired Physical Exam 2 Vital Signs: Vital Signs: Last Vital Signs Temp 97.5 F 09/06/23 08:30 Pulse 55 05/08/24 08:30 Resp 18 09/06/23 08:30 BP 144/60 H 09/06/23 08:30 Pulse Ox 97 09/06/23 08:30 O2 Del Method Room Air 09/06/23 08:30 BMI result Body Mass Index 33.3 Appearance: Alert. Oriented X3. No acute distress. Head: normocephalic, atraumatic. Eyes: Pupils equal, round and reactive to light. ENT: Pharynx normal. No tonsillar swelling or exudate. Neck: Normal inspection. Neck supple. CVS: Normal heart rate and rhythm. Pulses normal. Respiratory: No respiratory distress. Breath sounds normal. Abdomen: Soft and nontender. +BS x4 Skin: Skin warm and dry. Normal skin color. Normal skin turgor. No rashes. Extremities: Right lower extremity edema 2+ with very mild warmth and minimal erythema. tender lower leg. foot is warm and well perfused. Neuro/psych: Oriented X 3. No motor deficit. No sensory deficit. CN II-XII intact. Normal speech and cognition. Medical Decision Making Medical Decision Making [facility] Narrative: 78-year-old male with recently diagnosed right lower extremity cellulitis on Keflex and doxy who presents to the ER for re-evaluation for ongoing right lower leg swelling. It continues to be painful. On evaluation in the ER patient's vital signs are stable. No tachycardia or fever. His leg looks improved from last week. Erythema is minimal although he does have some ongoing swelling. He does have known PVD. Lab workup today is reassuring with no leukocytosis. Very minimally elevated CRP. Doubt this is true antibiotic failure and it is just slow to resolve completely. The overall appearance of the leg is much improved from when seen 1 week ago. At this time comfortable discharge home with continuation of oral doxycycline and Keflex, for 3 more days. Low clinical suspicion for DVT as he is already anticoagulated on Eliquis and lower extremity Doppler 1 week ago was negative. Patient counseled on compression and elevation importance as well as close outpatient follow-up. Stable for discharge home. Differential Diagnosis Differential Diagnoses: The differential diagnosis associated with the presentation includes Right lower extremity cellulitis, superficial thrombophlebitis, DVT, PAD, erythema nodosum Admission/Observation Consideration of admission/observation: Escalation of care including admission/observation considered Considered admission for IV antibiotics however patient appears to be slowly clinically improving Lab Data [facility] Lab Attestation statement: I reviewed the patient's lab results. No leukocytosis 09/06/23 07:34 09/06/23 08:41 Labs: Lab Results 09/06/23 09/06/23 Range/Units 07:34 08:41 WBC 7.8 (4.8-10.8) X10*3/uL RBC 4.61 (4.60-5.80) X10*6/uL Hgb 14.8 (14.0-18.0) g/dl Hct 44.7 (42.0-52.0) % MCV 97.0 (80.0-98.0) fL MCH 32.1 (27.0-33.0) pg MCHC 33.1 (31.0-36.0) g/dl RDW 13.8 (11.0-16.0) % Plt Count 357 (160-400) X10*3/uL MPV 9.5 (9.4-12.4) fL Immature Gran % (Auto) 0.3 (0.0-0.4) % Neut % (Auto) 66.1 (45-73) % Lymph % (Auto) 19.8 L (20-40) % Mcculloch % (Auto) 8.2 (2-11) % Eos % (Auto) 4.8 H (0-4) % Baso % (Auto) 0.8 (0-2) % Lymph # (Auto) 1.5 (1.2-4.9) X10*3/uL Mcculloch # (Auto) 0.6 (0.1-1.2) X10*3/uL Eos # (Auto) 0.4 (0.0-0.4) X10*3/uL Baso # (Auto) 0.1 (0.0-0.2) X10*3/uL Abs Immat Gran (auto) 0.02 (0.00-0.03) X10*3/uL Absolute Neuts (auto) 5.1 (2.0-8.3) x10*3/uL Absolute Nucleated RBC 0.000 (0.0-0.012) X10*3/uL Nucleated RBC % (auto) 0.0 (0.0-0.2) /100WBC Sodium 145 (135-145) mmol/L Potassium 4.4 (3.3-5.1) mmol/L Chloride 112 H (96-108) mmol/L Carbon Dioxide 22 (22-29) mmol/L Anion Gap 15 (12-20) BUN 30 H (9-16) mg/dL Creatinine 1.24 (0.5-1.4) mg/dL Estim Creat Clear Calc 67.1 Estimated GFR 57 Random Glucose 89 (60-115) mg/dL Calcium 9.9 (8.4-10.2) mg/dL Total Bilirubin 0.3 (0.0-1.0) mg/dL AST 17 (5-37) U/L ALT 15 (0-40) U/L Alkaline Phosphatase 112 (39-117) U/L C-Reactive Protein 1.82 H (< or = 0.50) mg/dL B-Natriuretic Peptide 217 H (<100) pg/mL Total Protein 6.9 (6.5-8.0) g/dL Albumin 3.7 (3.5-5.0) g/dL External Record Review External record reviewed: Outpatient record, Prior outpatient labs and Prior outpatient radiology Tests considered The following testing was considered but not selected: Consider repeat ultrasound of the leg however low clinical suspicion for acute DVT Prescription Management I considered prescription management with: Pain Medication and Antibiotic Chronic Conditions Patient?s care impacted by: Hypertension and Other (CKD, PVD) Critical Care Time Critical Care Time Critical Care Time: No Discharge Plan Discharge Clinical Impression: Cellulitis Qualifiers: Site of cellulitis: extremity Site of cellulitis of extremity: lower extremity Laterality: right Qualified Code(s): L03.115 - Cellulitis of right lower limb Patient Disposition: Home, Self-Care Instructions: Cellulitis (DC), Warm Compress or Soak (ED) Additional Instructions: Your cellulitis is slowly improving. Your lab workup today was reassuring. Continue the previously prescribed antibiotics for 3 more days. Additional antibiotics have been sent to your pharmacy to ensure you have 3 days' worth. Elevate her leg whenever possible. Wear the compression stocking or the provided Luis wrap for compression of your lower leg to help with the swelling. Take the prescribed Tylenol with codeine as needed for severe pain only. Follow-up with your doctor next week. If you develop new or worsening symptoms call 911 or come back to the ER for further evaluation. Prescriptions: New doxycycline hyclate 100 mg tablet 100 mg PO BID Qty: 6 0RF cephalexin 500 mg capsule 500 mg PO Q6H Qty: 12 0RF acetaminophen-codeine 300-30 mg tablet 1 tab PO BID PRN (Reason: severe pain (scale score 7-10)) Qty: 5 0RF No Action cilostazol 50 mg tablet 50 mg PO BID atorvastatin 80 mg tablet 80 mg PO DAILY Eliquis 5 mg tablet 5 mg PO BID furosemide 40 mg tablet 40 mg PO DAILY sertraline 50 mg tablet 50 mg PO DAILY doxycycline hyclate 100 mg tablet 100 mg PO BID Qty: 14 0RF cephalexin 500 mg capsule 500 mg PO Q6H 7 Days Qty: 28 0RF lisinopril 30 mg tablet 30 mg PO DAILY melatonin [Melatin] 3 mg tablet 1.5 mg PO BEDTIME docusate sodium 100 mg capsule 100 mg PO DAILY quetiapine 25 mg tablet 25 mg PO BID gabapentin 100 mg capsule See Rx Instructions PO BEDTIME Qty: 90 6RF Rx Instructions: 1-3 caps orally bedtime; clonazepam 1 mg tablet 1 mg PO BEDTIME PRN clonazepam 0.5 mg tablet PO metoprolol tartrate 50 mg tablet 50 mg PO BID tamsulosin 0.4 mg capsule 0.4 mg PO DAILY Referrals: Sesar Pereyra MD [Primary Care Provider] - Print Language: [place] Islander
[2023-09-06 08:30] VITALS: BP 144/60; PULSE 55; RESP 18; TEMP 36.4; O2SAT 97
--- NOTE | 2023-09-06 08:40 | PC.NURSE ---
Pt presents to ED from home, had recent diagnosis of right lower leg cellulitis. Is on 2 ABX at home, taking them as prescribed.Came back today due to pain and swelling, does not think it is progressing as it should. Right lower leg swollen, slightly red, no drainage noted. Pt reports pain is 7/10. Alert and oriented, breathing even and unlabored, skin WNL. VSS. Pt reports having approx 4 days of ABX left.
[2023-09-06 09:10] LABS: Alanine Aminotransferase 15 U/L (0-40); Albumin Level 3.7 g/dL (3.5-5.0); Alkaline Phosphatase 112 U/L (39-117); Anion Gap 15 (12-20); Aspartate Amino Transferase 17 U/L (5-37); Bilirubin Total 0.3 mg/dL (0.0-1.0); Blood Urea Nitrogen 30 mg/dL (9-16); Calcium 9.9 mg/dL (8.4-10.2); Carbon Dioxide 22 mmol/L (22-29); Chloride 112 mmol/L (96-108); Creatinine Clr Calc Pharmacy 67.1; Estimated Glomerular Filt Rate 57; Glucose Random 89 mg/dL (60-115); Potassium 4.4 mmol/L (3.3-5.1); Sodium 145 mmol/L (135-145); Total Protein 6.9 g/dL (6.5-8.0)
[2023-09-06 10:13] VITALS: BP 154/72; PULSE 60; RESP 18; TEMP 36.6; O2SAT 97
[2023-09-06 10:21] LABS: Erythrocyte Sedimentation Rate 23 MM/HR (0-15)
== END 2023-09-06 10:21 | disposition home or self-care (01) ==
PROVIDERS: Physician Assistant; Emergency Provider Emergency Medicine; PCP Internal Medicine
DX: L03.115 Cellulitis of right lower limb (principal); I10 Essential (primary) hypertension; I25.10 Atherosclerotic heart disease of native coronary artery without angina pectoris; Z79.899 Other long term (current) drug therapy
CPT/HCPCS: 36415; 80053; 83880; 85025; 85652; 86140; 99283; 99284

== ENCOUNTER 2023-11-15 14:49 | Outpatient (AMB) | payer MEDICARE, SELFPAY ==
[2023-11-15 14:57] VITALS: BP 114/68; PULSE 69; O2SAT 96; BMI 31.4
--- NOTE | 2023-11-15 14:57 | HO.NEPHOV ---
Vital Signs 11/15/23 14:57 Height 6 ft 1 in Weight 238 lb BMI 31.4 BP 114/68 Blood Pressure Location Lt brachial Position Sitting Pulse 69 Pulse Source Pulse Oximeter Pulse Oximetry (%) 96 Oxygen Delivery Method Room Air Intake Visit Reasons: CKD/ 4 MO FU/ Conf Property And Equipment Clerk Required: No Accompanied by: Self / Same As Patient Allergies No Known Allergies [No Known Allergies*] Allergy (Verified 11/15/23 14:59) HPI Comments Details: I had the privilege of seeing Mr. Johnson in follow up . He had a remote history of left renal carcinoma which was treated by partial nephrectomy in 2006 . He recently had a follow-up MRI which revealed a 1.6 cm left renal mass which appear to be enhancing and suspicious for renal cell cancer. 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 He also has been having lower urinary tract symptoms and had been started on Flomax. He is known to have peripheral vascular disease and had undergone bypass. He has history of renal stones but has not had one lately. Remotely he had colectomy and colostomy which had been reversed in 2006 , He denies any flank pain, hematuria, dysuria. He denies taking nonsteroidal anti-inflammatory medications. He does not have any coronary artery disease, congestive heart failure or known renal artery stenosis. He takes lisinopril and metoprolol and his BP has been at goal. He is on anticoagulation. His recent serum creatinine was found to be 1.24 [facility] Medical History Hypersomnia Snoring Neuropathy Atherosclerotic cardiovascular disease History of alcohol abuse History of COVID-19 On beta jose at home COPD (chronic obstructive pulmonary disease) On anticoagulant therapy History of atrial fibrillation PVD (peripheral vascular disease) Renal cell carcinoma Hypertension Depression Anxiety Diverticulitis Surgical History H/O cardiac catheterization History of colectomy S/P femoral-femoral bypass surgery Social History Household Members: Spouse Housing: House Do you presently have visiting nurse or other home services: No Alcohol intake: never Patient Tobacco Use Status: Former Tobacco user Substance Use Type: Marijuana Advance Directives Date on File: 06/09/21 service: Yes Current occupational status: retired Review of Systems Const All systems reviewed & are unremarkable except as noted in HPI and below Physical Exam Vital Signs: Last Vital Signs Pulse 69 11/15/23 14:57 BP 114/68 11/15/23 14:57 Pulse Ox 96 11/15/23 14:57 Oxygen Delivery Method Room Air 11/15/23 14:57 BMI result Body Mass Index 31.4 Const General: comfortable and no acute distress Orientation/consciousness: patient oriented x3 HEENT Head: Yes normocephalic Mouth: Normal oral and palatal mucosa present Eyes EOM: EOMs intact bilaterally Neck Neck: Yes supple Resp Auscultation: clear to auscultation bilaterally Cardio Jugular venous distension: no JVD Rate: regular rate GI Palpation (GI): Soft to palpation Auscultation: normal bowel sounds General: Yes no CVA tenderness Back/Spine/Pelvis Back: no CVA tenderness Skin General skin exam: no rashes or lesions noted Neuro General: patient oriented x3 and moves all extremities Extrem General: Yes no pedal edema Results Reviewed Nephrology Results: Hgb 14.8 g/dl (14.0-18.0) 09/06/23 WBC 7.8 X10*3/uL (4.8-10.8) 09/06/23 Plt Count 357 X10*3/uL (160-400) 09/06/23 Sodium 145 mmol/L (135-145) 09/06/23 Potassium 4.4 mmol/L (3.3-5.1) 09/06/23 Chloride 112 mmol/L (96-108) H 09/06/23 Carbon Dioxide 22 mmol/L (22-29) 09/06/23 BUN 30 mg/dL (9-16) H 09/06/23 Creatinine 1.24 mg/dL (0.5-1.4) 09/06/23 Calcium 9.9 mg/dL (8.4-10.2) 09/06/23 Urine Protein Negative mg/dL (Neg-Trace) 08/23/23 Renal US 06/29/23 Assessment & Plan Assessment & Plan (1) CKD (chronic kidney disease) stage 3, GFR 30-59 ml/min: Code(s): N18.30 - Chronic kidney disease, stage 3 unspecified Category: Medical Qualifiers: Chronic kidney disease stage 3 subtype: stage 3a (GFR 45-59) Qualified Code(s): N18.31 - Chronic kidney disease, stage 3a (2) Renal malignant neoplasm: Code(s): C64.9 - Malignant neoplasm of unspecified kidney, except renal pelvis Category: Medical Qualifiers: Laterality: left Qualified Code(s): C64.2 - Malignant neoplasm of left kidney, except renal pelvis (3) Hypertension: Code(s): I10 - Essential (primary) hypertension Category: Medical Qualifiers: Hypertension type: renovascular hypertension Qualified Code(s): I15.0 - Renovascular hypertension Plan Alex has chronic kidney disease most likely from vascular disease. He also had the loss of GFR from his partial nephrectomy. He is known to have bypasses for his PAD. He has a biopsy-proven clear cell renal cancer. He underwent cryoablation. His follow up MRI showed no convincing evidence for residual recurrent disease. He should remain well hydrated. I will do a Doppler of his renal arteries and shall consider doing a split study of his kidney function after his current renal cancer issues are resolved. He avoids nonsteroidal anti-inflammatory medications. He should remain well hydrated. I answered all his questions. Follow-up blood work ordered. Orders: Orders Creatinine Today I15.0 - Renovascular hypertension, N18.31 - Chronic kidney disease, stage 3a Blood Urea Nitrogen Today I15.0 - Renovascular hypertension, N18.31 - Chronic kidney disease, stage 3a Electrolytes Today I15.0 - Renovascular hypertension, N18.31 - Chronic kidney disease, stage 3a Calcium Today I15.0 - Renovascular hypertension, N18.31 - Chronic kidney disease, stage 3a Coding Level of Care Code Est Pt Level 4 (89432) Diagnoses Stage 3a chronic kidney disease N18.31 Chronic kidney disease stage 3 subtype: stage 3a (GFR 45-59) Malignant neoplasm of left kidney C64.2 Laterality: left Renovascular hypertension I15.0 Hypertension type: renovascular hypertension
== END 2023-11-15 15:18 | disposition home or self-care (01) ==
PROVIDERS: PCP Internal Medicine; Visit Provider Internal Medicine Nephrology
DX: N18.31 Chronic kidney disease, stage 3a (principal); C64.2 Malignant neoplasm of left kidney, except renal pelvis; I15.0 Renovascular hypertension
CPT/HCPCS: 99214

== ENCOUNTER → 2023-11-15 14:49 | Outpatient (BNVA) | payer MEDICARE, SELFPAY | PROVIDERS: PCP Internal Medicine; Visit Provider Internal Medicine Nephrology | DX: I15.0 Renovascular hypertension (principal); N18.31 Chronic kidney disease, stage 3a; Z85.528 Personal history of other malignant neoplasm of kidney | CPT/HCPCS: 99212 ==

== ENCOUNTER 2024-03-12 19:37 | Emergency (ER) | payer MEDICARE, SELFPAY ==
--- NOTE | 2024-03-12 | ECG_ITS ---
Test Reason : TACARDYA Blood Pressure : / mmHG Vent. Rate : 119 BPM Atrial Rate : 000 BPM P-R Int : 000 ms QRS Dur : 082 ms QT Int : 316 ms P-R-T Axes : 000 -15 082 degrees QTc Int : 444 ms Supraventricular tachycardia converting to sinus rhythm (12th beat) Cannot rule out Anteroseptal infarct (cited on or before 08-JUN-2021) Abnormal ECG When compared with ECG of 08-JUN-2021 10:34, ST now depressed in Lateral leads Inverted T waves have replaced nonspecific T wave abnormality in Lateral leads Referred By: Generic ED Physician Electronically Signed By:Brad Mims
--- NOTE | ~2024-03-12 | XR_ITS ---
EXAMINATION: XR CHEST CLINICAL INFORMATION: Atrial fibrillation. COMPARISON: Chest x-ray June 2021 TECHNIQUE: Frontal portable view of the chest was obtained. 2217 hours FINDINGS: Lungs are clear. No pulmonary vascular congestion. There is no pleural effusion. The heart size is normal. The cardiac and mediastinal contours are normal. There are multilevel degenerative changes of dorsal spine. XR/XR chest 1V IMPRESSION: No acute abnormality of chest. Electronically signed by: Quentin Truong MD 03/12/2024 10:59 PM EST
[2024-03-12 19:45] VITALS: BP 109/60; PULSE 140; O2SAT 98
[2024-03-12 19:49] VITALS: BP 103/72; PULSE 120; RESP 14; TEMP 37.2; O2SAT 95; BMI 31.0
--- NOTE | 2024-03-12 19:55 | MHC.EDTECH ---
Patient was biba from home ,taken and was read by Provider ,Patient was Change into hospital attire and hooked up to library monitor .CLAUDIA Burgos in room triaging Patient .
--- NOTE | 2024-03-12 20:08 | ED_ITS ---
HPI - General Adult General Chief complaint: General Medical Stated complaint: dizzy, taxhy *140's w/ hx a-fib Time Seen by Provider: 03/12/24 20:08 History of Present Illness ED Provider: Han MARINO narrative: The patient is a 79-year-old male with a history of atrial fibrillation. He is on apixaban and metoprolol. The patient says that he has felt intermittently dizzy over the last week or so. Earlier today he was shopping and felt dizzy but the dizziness resolved. This evening at home he again felt quite dizzy and felt as if he might faint and so called 911 and he was brought to the hospital. The patient does not have any sense of palpitations or any sense of his heart racing. No chest pain. No fevers. No shortness of breath. Related Data Home Medications ?Medication ?Instructions ?Recorded ?Confirmed docusate sodium 100 mg capsule 100 mg PO DAILY 08/17/21 09/05/23 lisinopril 30 mg tablet 30 mg PO DAILY 08/17/21 09/05/23 melatonin 3 mg tablet (Melatin) 1.5 mg PO BEDTIME 08/17/21 09/05/23 apixaban 5 mg tablet (Eliquis) 5 mg PO BID 01/27/22 09/05/23 atorvastatin 80 mg tablet 80 mg PO DAILY 01/27/22 09/05/23 furosemide 40 mg tablet 40 mg PO DAILY 01/27/22 09/05/23 sertraline 50 mg tablet 50 mg PO DAILY 07/06/22 09/05/23 metoprolol tartrate 50 mg tablet 50 mg PO BID 10/24/22 09/05/23 quetiapine 25 mg tablet 25 mg PO BID 12/28/22 09/05/23 clonazepam 1 mg tablet 1 mg PO BEDTIME PRN 03/02/23 09/05/23 tamsulosin 0.4 mg capsule 0.4 mg PO DAILY 03/07/23 09/05/23 cilostazol 50 mg tablet 50 mg PO BID 03/27/23 09/05/23 clonazepam 0.5 mg tablet mg PO PRN 11/15/23 Previous Rx's ?Medication ?Instructions ?Recorded gabapentin 100 mg capsule See Rx Instructions PO BEDTIME #90 12/28/22 caps acetaminophen 300 mg-codeine 30 mg 1 tab PO BID PRN severe pain 09/06/23 tablet (scale score 7-10) #5 tabs doxycycline hyclate 100 mg tablet 100 mg PO BID #6 tabs 09/06/23 Allergies Allergy/AdvReac Type Severity Reaction Status Date / Time No Known Allergies Allergy Verified 03/13/24 09:45 [No Known Allergies*] Review of Systems 2 Review of Systems: Yes all other systems are reviewed and are negative [facility] Past Medical History Medical History Hypersomnia Snoring Neuropathy Atherosclerotic cardiovascular disease History of alcohol abuse History of COVID-19 On beta jose at home COPD (chronic obstructive pulmonary disease) On anticoagulant therapy History of atrial fibrillation PVD (peripheral vascular disease) Renal cell carcinoma Hypertension Depression Anxiety Diverticulitis Surgical History H/O cardiac catheterization History of colectomy S/P femoral-femoral bypass surgery Social History Social History Household Members: Spouse Housing: House Do you presently have visiting nurse or other home services: No Alcohol intake: never Patient Tobacco Use Status: Former Tobacco user Substance Use Type: Marijuana Advance Directives Date on File: 06/09/21 service: Yes Current occupational status: retired Physical Exam ED Vital Signs: Vital Signs - 24 hr 03/12/24 19:49 03/12/24 21:26 03/12/24 22:37 Temperature 99.0 F 98.7 F 98.8 F Pulse Rate 120 H 122 H 127 H Respiratory Rate 14 12 16 Blood Pressure 103/72 106/45 L 114/72 Pulse Oximetry 95 97 98 Oxygen Delivery Method Room Air Room Air Room Air 03/13/24 00:33 03/13/24 00:44 Temperature 98.4 F 98.4 F Pulse Rate 56 56 Respiratory Rate 15 15 Blood Pressure 135/71 135/71 Pulse Oximetry 96 96 Oxygen Delivery Method Room Air Room Air BMI result Body Mass Index 31.0 Const Other: The patient is a 79-year-old male who was awake and alert. He was quite tachycardic with a heart rate in the 140s but he did not seem short of breath or otherwise ill or uncomfortable despite his rapid heart rate. HENMT Other: Face is symmetrical. Mucous membranes moist. Eyes General: appearance normal, both eyes and all related structures Neck Neck: Yes no JVD Resp Effort & Inspection: normal respiratory effort Auscultation: clear to auscultation bilaterally Cardio Other: Patient had a rapid heart rate that was quite irregular. I did not appreciate any definite murmur. GI Other: Abdomen is soft nontender Skin Other: skin is dry and unremarkable Neuro Other: the patient is awake and alert. Mental status seems clear. Cranial nerves are grossly intact. He moves his extremities symmetrically and appropriately. Extrem Other: No peripheral edema Medications Administered Discontinued Medications Generic Name Dose Route Start Last Admin Trade Name Freq PRN Reason Stop Dose Admin Sodium Chloride 1,000 mls @ 999 mls/hr 03/12/24 21:30 03/12/24 22:53 Ns IV 03/12/24 22:30 Infused .Q1H1M SOTERO Infusion Metoprolol Tartrate 5 mg 03/12/24 20:51 03/12/24 21:28 Metoprolol Tartrate 5 Mg/5 Ml Vial IVPUSH 03/12/24 20:52 5 mg ONCE ONE Administration Protocol Metoprolol Tartrate 50 mg 03/12/24 22:38 03/12/24 22:53 Metoprolol Tartrate 50 Mg Tablet PO 03/12/24 22:39 50 mg ONCE ONE Administration Protocol Metoprolol Tartrate 5 mg 03/12/24 22:38 03/12/24 22:53 Metoprolol Tartrate 5 Mg/5 Ml Vial IVPUSH 03/12/24 22:39 5 mg ONCE ONE Administration Protocol Medical Decision Making Medical Decision Making [facility] Narrative: Patient is a 79-year-old male with a history of atrial fibrillation who I believe is on apixaban and metoprolol. The patient confirm that he is on a blood thinner. He could not confirm that he is specifically on metoprolol but he says that he takes all the medications that are in his blister packs. He does not think he has missed any doses. The patient presents with intermittent symptoms of dizziness and lightheadedness that I suspect are probably related to intermittent episodes of atrial fibrillation with rapid ventricular response. He is not describing any anginal symptoms. I do not think he has any neurological or infectious issue. The patient's heart rate was in the 140s and 150s in atrial fibrillation. He was given 5 mg of IV metoprolol and 50 mg of oral metoprolol tartrate. He was given a repeat dose of the 5 mg of IV metoprolol as well. He was given IV fluids because his blood pressures were slightly borderline. Ultimately the patient's heart rate seemed to settle into a sinus rhythm in the 60s or 70s. Although he was primarily in sinus at that time he seemed to have intermittent brief runs of AFib as well. However the patient stated that he felt much much better. He clearly felt better when his heart rate was under 100. the patient looked somewhat better when his heart rate was better that I felt that he could be discharged. He apparently has a regular doctor's appointment with his PCP in the morning. He is advised to contact his cardiology office as well to make a prompt follow-up appointment to see if he needs any kind of adjustments to his atrial fibrillation management. He seemed comfortable going home. Lab Data 03/12/24 21:05 03/12/24 21:05 Labs: Lab Results 03/12/24 03/12/24 Range/Units 21:05 21:50 WBC 12.3 H (4.8-10.8) X10*3/uL RBC 4.91 (4.60-5.80) X10*6/uL Hgb 16.0 (14.0-18.0) g/dl Hct 46.7 (42.0-52.0) % MCV 95.1 (80.0-98.0) fL MCH 32.6 (27.0-33.0) pg MCHC 34.3 (31.0-36.0) g/dl RDW 13.6 (11.0-16.0) % Plt Count 315 (160-400) X10*3/uL MPV 9.7 (9.4-12.4) fL Immature Gran % (Auto) 0.2 (0.0-0.4) % Neut % (Auto) 79.2 H (45-73) % Lymph % (Auto) 11.5 L (20-40) % [place] % (Auto) 8.3 (2-11) % Eos % (Auto) 0.3 (0-4) % Baso % (Auto) 0.5 (0-2) % Lymph # (Auto) 1.4 (1.2-4.9) X10*3/uL [place] # (Auto) 1.0 (0.1-1.2) X10*3/uL Eos # (Auto) 0.0 (0.0-0.4) X10*3/uL Baso # (Auto) 0.1 (0.0-0.2) X10*3/uL Abs Immat Gran (auto) 0.02 (0.00-0.03) X10*3/uL Absolute Neuts (auto) 9.8 H (2.0-8.3) x10*3/uL Absolute Nucleated RBC 0.000 (0.0-0.012) X10*3/uL Nucleated RBC % (auto) 0.0 (0.0-0.2) /100WBC PT 13.5 H (10.9-12.4) SEC INR 1.2 H (0.9-1.1) Sodium 141 (135-145) mmol/L Potassium 3.8 (3.3-5.1) mmol/L Chloride 110 H (96-108) mmol/L Carbon Dioxide 23 (22-29) mmol/L Anion Gap 12 (12-20) BUN 17 H (9-16) mg/dL Creatinine 1.41 H (0.5-1.4) mg/dL Estim Creat Clear Calc 56.2 Estimated GFR 49 Random Glucose 115 (60-115) mg/dL Calcium 9.4 (8.4-10.2) mg/dL Total Bilirubin 0.5 (0.0-1.0) mg/dL AST 20 (5-37) U/L ALT 18 (0-40) U/L Alkaline Phosphatase 112 (39-117) U/L Troponin I High Sens 21.8 (<3.5-35.0) ng/L C-Reactive Protein 0.42 (< or = 0.50) mg/dL Total Protein 7.0 (6.5-8.0) g/dL Albumin 4.0 (3.5-5.0) g/dL Urine Color Yellow Urine Appearance Clear Urine pH 6.5 (5.0-9.0) Ur Specific [place] <= 1.005 (1.005-1.025) Urine Protein 100 (2+) H (Neg-Trace) mg/dL Urine Glucose (UA) Negative (Negative) mg/dL Urine Ketones Negative (Negative) mg/dL Urine Blood Negative (Negative) Urine Nitrite Negative (Negative) Ur Leukocyte Esterase Negative (Negative) Urine RBC 0-2 (0-2) /HPF Urine WBC 0-5 (0-5) /HPF Ur Squamous Epith Cells 0-2 (0-2) /HPF Urine Bacteria None Seen (None Seen) Hyaline Casts 0-2 (0-2) /LPF Independent Interpretation I performed an independent interpretation of an: EKG Interpretation: EKG at 19:50 showed atrial fibrillation with rapid ventricular response rate of 119 beats per minute. No definite acute ischemic changes. Discharge Plan Discharge Clinical Impression: Atrial fibrillation with rapid ventricular response Patient Disposition: Home, Self-Care Additional Instructions: I believe the were feeling dizzy and lightheaded because your heart rate was going very fast. Your heart has been exhibiting atrial fibrillation. This is the reason you are on metoprolol and the blood thinning medication. You received additional metoprolol tonight and your heart rate improved and you seemed to feel better. Please check your medications when you get home and make sure that metoprolol is in the bubble pack you have at home. Make sure you take your metoprolol 2 times a day every day. Also continue your apixaban (Eliquis), your blood thinning medication. Additionally take your other regular medications. Please plan on contacting your cardiology office in the morning for a follow up appointment to discuss this episode further. In the short run keep your appointment with Dr. Cartagena tomorrow. If significantly worse at any time please return to the emergency department. Prescriptions: No Action cilostazol 50 mg tablet 50 mg PO BID atorvastatin 80 mg tablet 80 mg PO DAILY Eliquis 5 mg tablet 5 mg PO BID furosemide 40 mg tablet 40 mg PO DAILY sertraline 50 mg tablet 50 mg PO DAILY doxycycline hyclate 100 mg tablet 100 mg PO BID Qty: 6 0RF acetaminophen-codeine 300-30 mg tablet 1 tab PO BID PRN (Reason: severe pain (scale score 7-10)) Qty: 5 0RF lisinopril 30 mg tablet 30 mg PO DAILY melatonin [Melatin] 3 mg tablet 1.5 mg PO BEDTIME docusate sodium 100 mg capsule 100 mg PO DAILY quetiapine 25 mg tablet 25 mg PO BID gabapentin 100 mg capsule See Rx Instructions PO BEDTIME Qty: 90 6RF Rx Instructions: 1-3 caps orally bedtime; clonazepam 1 mg tablet 1 mg PO BEDTIME PRN clonazepam 0.5 mg tablet PO PRN metoprolol tartrate 50 mg tablet 50 mg PO BID tamsulosin 0.4 mg capsule 0.4 mg PO DAILY Referrals: Sesar Pereyra MD [Primary Care Provider] - (Episode of atrial fibrillation with a rapid ventricular response) Manas Rutledge MD [Physician] - (Episode of atrial fibrillation with a rapid ventricular response) Interventions: ED Discharge Assessment Last Done: 03/13/24 00:44 Discharge Date/Time: 03/13/24 00:45 Print Language: Tajik
[2024-03-12 21:10] LABS: MANUAL DIFF FLAG NO
[2024-03-12 21:19] LABS: Basophils Absolute Auto 0.1 X10*3/uL (0.0-0.2); Basophils Percent Auto 0.5 % (0-2); Eosinophils Percent Auto 0.3 % (0-4); Hematocrit 46.7 % (42.0-52.0); Imm Gran Abs Auto 0.02 X10*3/uL (0.00-0.03); Imm Gran Pct Auto 0.2 % (0.0-0.4); Lymphocytes Absolute Auto 1.4 X10*3/uL (1.2-4.9); Lymphocytes Percent Auto 11.5 % (20-40); Mean Corpuscular HGB Conc 34.3 g/dl (31.0-36.0); Mean Corpuscular Hemoglobin 32.6 pg (27.0-33.0); Mean Corpuscular Volume 95.1 fL (80.0-98.0); Mean Platelet Volume 9.7 fL (9.4-12.4); Monocytes Percent Auto 8.3 % (2-11); Neutrophils Absolute Auto 9.8 x10*3/uL (2.0-8.3); Neutrophils Percent Auto 79.2 % (45-73); Platelet Count 315 X10*3/uL (160-400); Red Blood Count 4.91 X10*6/uL (4.60-5.80); Red Cell Distribution Width 13.6 % (11.0-16.0); White Blood Count 12.3 X10*3/uL (4.8-10.8)
[2024-03-12 21:26] VITALS: BP 106/45; PULSE 122; RESP 12; TEMP 37.1; O2SAT 97
[2024-03-12] MEDS: Metoprolol Tartrate 5 MG/5 ML VIAL IVPUSH ×2 (21:28→22:53)
[2024-03-12 21:29] LABS: Alanine Aminotransferase 18 U/L (0-40); Alkaline Phosphatase 112 U/L (39-117); Anion Gap 12 (12-20); Aspartate Amino Transferase 20 U/L (5-37); Bilirubin Total 0.5 mg/dL (0.0-1.0); Blood Urea Nitrogen 17 mg/dL (9-16); Calcium 9.4 mg/dL (8.4-10.2); Carbon Dioxide 23 mmol/L (22-29); Chloride 110 mmol/L (96-108); Creatinine Clr Calc Pharmacy 56.2; Estimated Glomerular Filt Rate 49; Glucose Random 115 mg/dL (60-115); Potassium 3.8 mmol/L (3.3-5.1); Sodium 141 mmol/L (135-145)
[2024-03-12] MEDS: 0.9 % Sodium Chloride 1,000 ML 999 ML IV (21:30)
[2024-03-12 21:35] LABS: Troponin-I High Sensitivity 21.8 ng/L (<3.5-35.0)
[2024-03-12 21:37] LABS: INTERNATIONAL NORM RATIO 1.2 (0.9-1.1); Prothrombin Time 13.5 SEC (10.9-12.4)
[2024-03-12 21:53] LABS: C Reactive Protein 0.42 mg/dL (< or = 0.50)
[2024-03-12 21:57] LABS: Appearance Urine Clear; Color Urine Yellow; Glucose Urine UA Negative (Negative); Leukocyte Esterase Urine Negative (Negative); Nitrite Urine Negative (Negative); PH 6.5 (5.0-9.0); Specific Gravity - Urine <= 1.005 (1.005-1.025); UMIC TRIGGER UACC YES; Urine Blood Negative (Negative); Urine Ketones Negative (Negative); Urine Protein 100 (2+) mg/dL (Neg-Trace)
[2024-03-12 22:08] LABS: Bacteria Urine None Seen (None Seen); Hyaline Casts Urine 0-2 /LPF (0-2); RBC Urine 0-2 /HPF (0-2); Squamous Epithelial Cell Urine 0-2 /HPF (0-2); WBC Urine 0-5 /HPF (0-5)
[2024-03-12 22:37] VITALS: BP 114/72; PULSE 127; RESP 16; TEMP 37.1; O2SAT 98
[2024-03-12] MEDS: Metoprolol Tartrate 50 MG TABLET PO (22:53)
--- NOTE | 2024-03-12 23:12 | ECG_ITS ---
Test Reason : AFIB Blood Pressure : / mmHG Vent. Rate : 113 BPM Atrial Rate : 000 BPM P-R Int : 000 ms QRS Dur : 062 ms QT Int : 340 ms P-R-T Axes : 000 -04 015 degrees QTc Int : 466 ms Sinus rhythm converting to SVT Anteroseptal infarct (cited on or before 08-JUN-2021) Abnormal ECG When compared with ECG of 12-MAR-2024 19:50, ST more depressed Inferior leads ST no longer depressed in Lateral leads T wave inversion more evident in Lateral leads Referred By: Vincent Short Electronically Signed By:Brad Mims
--- NOTE | 2024-03-12 23:30 | MHC.EDTECH ---
at this time this tech performed an EKG on this pt, EKG taken and given to provider, pt tolerated procedure well, and had no needs at this time, call light given for safety
[2024-03-13 00:33] VITALS: BP 135/71; PULSE 56; RESP 15; TEMP 36.9; O2SAT 96
[2024-03-13 00:44] VITALS: BP 135/71; PULSE 56; RESP 15; TEMP 36.9; O2SAT 96
== END 2024-03-13 00:45 | disposition home or self-care (01) ==
PROVIDERS: Emergency Provider Emergency Medicine; PCP Internal Medicine
DX: I48.20 Chronic atrial fibrillation, unspecified (principal); R42 Dizziness and giddiness; I10 Essential (primary) hypertension; Z79.01 Long term (current) use of anticoagulants; Z79.899 Other long term (current) drug therapy; J44.9 Chronic obstructive pulmonary disease, unspecified
CPT/HCPCS: 36415; 71045; 80053; 81001; 81003; 84484; 85025; 85610; 86140; 93005; 96361; 96374; 96376; 99284

== ENCOUNTER → 2024-03-12 19:50 | Outpatient (BNV) | payer MEDICARE, SELFPAY | PROVIDERS: Emergency Provider Emergency Medicine; PCP Internal Medicine; Visit Provider Internal Medicine Cardiovascular Disease | DX: I47.10 Supraventricular tachycardia, unspecified (principal) | CPT/HCPCS: 93010 ==

== ENCOUNTER 2024-03-13 09:40 | Outpatient (AMB) | payer MEDICARE, SELFPAY ==
--- NOTE | 2024-03-13 09:43 | HO.NEPHOV ---
Vital Signs 03/13/24 09:45 Height 6 ft 1 in Weight 240 lb BMI 31.7 BP 130/62 Blood Pressure Location Rt brachial Position Sitting Pulse 58 Pulse Source Pulse Oximeter Pulse Oximetry (%) 98 Oxygen Delivery Method Room Air Intake Visit Reasons: CKD-Conf Float Remover Required: No Accompanied by: Self / Same As Patient Allergies No Known Allergies [No Known Allergies*] Allergy (Verified 03/13/24 09:45) HPI Comments Details: Mr. Johnson was seen in follow up for CKD. He was seen in ER last night for AFib with RVR. . He had a remote history of left renal carcinoma which was treated by partial nephrectomy in 2006 . He recently had a follow-up MRI which revealed a 1.6 cm left renal mass which appear to be enhancing and suspicious for renal cell cancer. 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 He also has been having lower urinary tract symptoms and had been started on Flomax. He is known to have peripheral vascular disease and had undergone bypass. He has history of renal stones but has not had one lately. Remotely he had colectomy and colostomy which had been reversed in 2006 , He denies any flank pain, hematuria, dysuria. He denies taking nonsteroidal anti-inflammatory medications. He does not have any coronary artery disease, congestive heart failure or known renal artery stenosis. He takes lisinopril and metoprolol and his BP has been at goal. He is on anticoagulation. His recent serum creatinine was found to be 1.41 [facility] Medical History Hypersomnia Snoring Neuropathy Atherosclerotic cardiovascular disease History of alcohol abuse History of COVID-19 On beta jose at home COPD (chronic obstructive pulmonary disease) On anticoagulant therapy History of atrial fibrillation PVD (peripheral vascular disease) Renal cell carcinoma Hypertension Depression Anxiety Diverticulitis Surgical History H/O cardiac catheterization History of colectomy S/P femoral-femoral bypass surgery Social History Household Members: Spouse Housing: House Do you presently have visiting nurse or other home services: No Alcohol intake: never Patient Tobacco Use Status: Former Tobacco user Substance Use Type: Marijuana Advance Directives Date on File: 06/09/21 service: Yes Current occupational status: retired Review of Systems Const All systems reviewed & are unremarkable except as noted in HPI and below Physical Exam Vital Signs: Last Vital Signs Pulse 58 03/13/24 09:45 BP 130/62 03/13/24 09:45 Pulse Ox 98 03/13/24 09:45 Oxygen Delivery Method Room Air 03/13/24 09:45 BMI result Body Mass Index 31.7 Const General: comfortable and no acute distress Orientation/consciousness: patient oriented x3 HEENT Head: Yes normocephalic Mouth: Normal oral and palatal mucosa present Eyes EOM: EOMs intact bilaterally Neck Neck: Yes supple Resp Auscultation: clear to auscultation bilaterally Cardio Jugular venous distension: no JVD Rate: regular rate GI Palpation (GI): Soft to palpation Auscultation: normal bowel sounds General: Yes no CVA tenderness Back/Spine/Pelvis Back: no CVA tenderness Skin General skin exam: no rashes or lesions noted Neuro General: patient oriented x3 and moves all extremities Extrem General: Yes no pedal edema Results Reviewed Nephrology Results: Hgb 16.0 g/dl (14.0-18.0) 03/12/24 WBC 12.3 X10*3/uL (4.8-10.8) H 03/12/24 Plt Count 315 X10*3/uL (160-400) 03/12/24 Sodium 141 mmol/L (135-145) 03/12/24 Potassium 3.8 mmol/L (3.3-5.1) 03/12/24 Chloride 110 mmol/L (96-108) H 03/12/24 Carbon Dioxide 23 mmol/L (22-29) 03/12/24 BUN 17 mg/dL (9-16) H 03/12/24 Creatinine 1.41 mg/dL (0.5-1.4) H 03/12/24 Calcium 9.4 mg/dL (8.4-10.2) 03/12/24 Urine Protein 100 (2+) mg/dL (Neg-Trace) H 03/12/24 Assessment & Plan Assessment & Plan (1) CKD (chronic kidney disease) stage 3, GFR 30-59 ml/min: Code(s): N18.30 - Chronic kidney disease, stage 3 unspecified Category: Medical Qualifiers: Chronic kidney disease stage 3 subtype: stage 3a (GFR 45-59) Qualified Code(s): N18.31 - Chronic kidney disease, stage 3a (2) Hypertension: Code(s): I10 - Essential (primary) hypertension Category: Medical Qualifiers: Hypertension type: renovascular hypertension Qualified Code(s): I15.0 - Renovascular hypertension Latesha Johnson has chronic kidney disease most likely from vascular disease. He also had the loss of GFR from his partial nephrectomy. He is known to have bypasses for his PAD. He has a biopsy-proven clear cell renal cancer. He underwent cryoablation. His follow up MRI showed no convincing evidence for residual recurrent disease. He should remain well hydrated. I will do a Doppler of his renal arteries and shall consider doing a split study of his kidney function after his current renal cancer issues are resolved. He avoids nonsteroidal anti-inflammatory medications. He should remain well hydrated. He will be a candidate for SGLT2 i. I answered all his questions. Follow-up blood work ordered Orders: Orders Electrolytes 3 Months I15.0 - Renovascular hypertension, N18.31 - Chronic kidney disease, stage 3a Creatinine 3 Months I15.0 - Renovascular hypertension, N18.31 - Chronic kidney disease, stage 3a Blood Urea Nitrogen 3 Months I15.0 - Renovascular hypertension, N18.31 - Chronic kidney disease, stage 3a Coding Level of Care Code Est Pt Level 4 (77668) Diagnoses Stage 3a chronic kidney disease N18.31 Chronic kidney disease stage 3 subtype: stage 3a (GFR 45-59) Renovascular hypertension I15.0 Hypertension type: renovascular hypertension
[2024-03-13 09:45] VITALS: BP 130/62; PULSE 58; O2SAT 98; BMI 31.7
== END 2024-03-13 10:08 | disposition home or self-care (01) ==
PROVIDERS: PCP Internal Medicine; Visit Provider Internal Medicine Nephrology
DX: I12.9 Hypertensive chronic kidney disease with stage 1 through stage 4 chronic kidney disease, or unspecified chronic kidney disease (principal); N18.31 Chronic kidney disease, stage 3a
CPT/HCPCS: 99214

== ENCOUNTER → 2024-03-13 09:40 | Outpatient (BNVA) | payer MEDICARE, SELFPAY | PROVIDERS: PCP Internal Medicine; Visit Provider Internal Medicine Nephrology | DX: N18.31 Chronic kidney disease, stage 3a (principal); I15.0 Renovascular hypertension; Z85.528 Personal history of other malignant neoplasm of kidney; Z87.442 Personal history of urinary calculi | CPT/HCPCS: 99212 ==

== ENCOUNTER 2024-03-14 01:30 | Emergency (ER) | payer MEDICARE, SELFPAY ==
--- NOTE | 2024-03-14 | ECG_ITS ---
Test Reason : afib Blood Pressure : / mmHG Vent. Rate : 062 BPM Atrial Rate : 062 BPM P-R Int : 218 ms QRS Dur : 066 ms QT Int : 398 ms P-R-T Axes : 089 -11 014 degrees QTc Int : 403 ms Poor data quality Sinus rhythm with 1st degree A-V block Anteroseptal infarct (cited on or before 08-JUN-2021) Abnormal ECG When compared with ECG of 12-MAR-2024 23:25, SVT not present Referred By: Generic ED Physician Electronically Signed By:Brad Mims
[2024-03-14 01:40] VITALS: BP 104/61; BP 112/74; PULSE 62; RESP 16; TEMP 36.6; O2SAT 98; BMI 31.3
[2024-03-14 04:00] VITALS: BP 108/68; PULSE 64; RESP 16; O2SAT 98
[2024-03-14] MEDS: clonazePAM 1 MG TABLET PO (05:20)
--- NOTE | 2024-03-14 05:25 | PC.NURSE ---
Pt indicated to this RN that he is feeling anxious, sts takes Clonazepam at home.
--- NOTE | 2024-03-14 07:56 | ED.GENADULT ---
HPI - General Adult General Chief complaint: Dizziness Stated complaint: Dizzy, seen @ [facility] yesterday was told a fib Time Seen by Provider: 03/14/24 07:06 Source: patient History of Present Illness ED Provider: Belgica MARINO narrative: 79-year-old male who presents with mild dizziness, recently was seen 03/13 for atrial fibrillation with RVR. Patient states that he had been standing making breakfast, however afterwards is subsided he went to his primary care doctor appointment, states that it happened again and he called the ambulance to be brought in. He otherwise denies any chest pain/shortness of breath/fever/chills, he does live with a girlfriend who is currently out in [facility]. Related Data Home Medications ?Medication ?Instructions ?Recorded ?Confirmed docusate sodium 100 mg capsule 100 mg PO DAILY 08/17/21 09/05/23 lisinopril 30 mg tablet 30 mg PO DAILY 08/17/21 09/05/23 melatonin 3 mg tablet (Melatin) 1.5 mg PO BEDTIME 08/17/21 09/05/23 apixaban 5 mg tablet (Eliquis) 5 mg PO BID 01/27/22 09/05/23 atorvastatin 80 mg tablet 80 mg PO DAILY 01/27/22 09/05/23 furosemide 40 mg tablet 40 mg PO DAILY 01/27/22 09/05/23 sertraline 50 mg tablet 50 mg PO DAILY 07/06/22 09/05/23 metoprolol tartrate 50 mg tablet 50 mg PO BID 10/24/22 09/05/23 quetiapine 25 mg tablet 25 mg PO BID 12/28/22 09/05/23 clonazepam 1 mg tablet 1 mg PO BEDTIME PRN 03/02/23 09/05/23 tamsulosin 0.4 mg capsule 0.4 mg PO DAILY 03/07/23 09/05/23 cilostazol 50 mg tablet 50 mg PO BID 03/27/23 09/05/23 clonazepam 0.5 mg tablet mg PO PRN 11/15/23 Previous Rx's ?Medication ?Instructions ?Recorded gabapentin 100 mg capsule See Rx Instructions PO BEDTIME #90 12/28/22 caps acetaminophen 300 mg-codeine 30 mg 1 tab PO BID PRN severe pain 09/06/23 tablet (scale score 7-10) #5 tabs doxycycline hyclate 100 mg tablet 100 mg PO BID #6 tabs 09/06/23 Allergies Allergy/AdvReac Type Severity Reaction Status Date / Time No Known Allergies Allergy Verified 03/14/24 01:43 [No Known Allergies*] Review of Systems Review of Systems: Pertinent positives and negatives as stated in [facility] Past Medical History Medical History Hypersomnia Snoring Neuropathy Atherosclerotic cardiovascular disease History of alcohol abuse History of COVID-19 On beta jose at home COPD (chronic obstructive pulmonary disease) On anticoagulant therapy History of atrial fibrillation PVD (peripheral vascular disease) Renal cell carcinoma Hypertension Depression Anxiety Diverticulitis Surgical History H/O cardiac catheterization History of colectomy S/P femoral-femoral bypass surgery Social History Social History Household Members: Spouse Housing: House Do you presently have visiting nurse or other home services: No Alcohol intake: never Patient Tobacco Use Status: Former Tobacco user Substance Use Type: Marijuana Advance Directives Date on File: 06/09/21 service: Yes Current occupational status: retired Physical Exam ED Vital Signs: Vital Signs - 24 hr 03/14/24 01:40 03/14/24 04:00 03/14/24 07:58 Temperature 97.9 F 98.1 F Pulse Rate 62 64 51 Respiratory Rate 16 16 11 L Blood Pressure 104/61 108/68 127/68 Pulse Oximetry 98 98 98 Oxygen Delivery Method Room Air Room Air Room Air BMI result Body Mass Index 31.3 VITAL SIGNS: Reviewed. GENERAL: Well developed, well nourished, in no acute distress. HEAD: Normocephalic/atraumatic EYES: PERRLA, EOMI LUNGS: Normal breath sounds. No adventitious sounds or accessory muscle use. SpO2<98> CARDIOVASCULAR: IRR rate and rhythm without noted murmurs ABDOMEN: Soft, non-tender, non-distended with bowel sounds. MUSCULOSKELETAL: No tenderness, deformities, or effusions noted on gross inspection. EXTREMITIES: No cyanosis, clubbing or edema. SKIN: Inspection of the skin reveals no rashes NEUROLOGIC: Alert and oriented x 4. Strength and sensation to light touch were grossly intact x 4. Medications Administered Discontinued Medications Generic Name Dose Route Start Last Admin Trade Name Yordan PRN Reason Stop Dose Admin Clonazepam 1 mg 03/14/24 05:02 03/14/24 05:20 Clonazepam 1 Mg Tablet PO 03/14/24 05:03 1 mg ONCE ONE Administration Medical Decision Making Medical Decision Making [facility] Narrative: 79-year-old male with history and clinical presentation of reported dizziness while standing for a while at tasks, he was fully worked up the previous day and was noted be in AFib with RVR and on my review of prior lab work and imaging studies it did appear that he had a new CATALINO and a mild leukocytosis, however no evidence on either chest x-ray or urinalysis source. He denies any fevers or chills and is not noted to be in atrial fibrillation with RVR. He reports that he has been taking all of his medications as prescribed, he states that he took a Klonopin at approximately 05:00 this morning and suffers from anxiety and depression and reports that he is feeling much better. I will obtain chemistry studies to evaluate his renal function to ensure no further kidney dysfunction is noted and will also perform ambulation test. EKG: Sinus rhythm with first-degree AV block, HR-62, there is no acute RI noted on my interpretation of the EKG. I reviewed interpreted the chemistries indices, there is a stable CATALINO but last for comparison is in August of this year, suspect that this is patient is new level, will instruct him to follow-up with his primary care doctor again within the next week for repeat lab work and encouraged him to drink more water. Otherwise chemistry indices are negative for evidence of electrolyte or liver enzyme derangements. Differential Diagnosis Differential Diagnoses: The differential diagnosis associated with the presentation includes See above Admission/Observation Consideration of admission/observation: Escalation of care including admission/observation considered Patient does not meet inpatient level of care. Lab Data [facility] Lab Attestation statement: I reviewed the patient's lab results. See above 03/14/24 08:33 Labs: Lab Results 03/14/24 Range/Units 08:33 Sodium 143 (135-145) mmol/L Potassium 4.2 (3.3-5.1) mmol/L Chloride 108 (96-108) mmol/L Carbon Dioxide 27 (22-29) mmol/L Anion Gap 12 (12-20) BUN 16 (9-16) mg/dL Creatinine 1.53 H (0.5-1.4) mg/dL Estim Creat Clear Calc 52.0 Estimated GFR 44 Random Glucose 92 (60-115) mg/dL Calcium 9.1 (8.4-10.2) mg/dL Total Bilirubin 0.5 (0.0-1.0) mg/dL AST 23 (5-37) U/L ALT 19 (0-40) U/L Alkaline Phosphatase 102 (39-117) U/L Total Protein 6.5 (6.5-8.0) g/dL Albumin 3.8 (3.5-5.0) g/dL Independent Interpretation I performed an independent interpretation of an: EKG Interpretation: See above External Record Review External record reviewed: Outpatient record and Outside ED record Chronic Conditions Patient?s care impacted by: Hypertension Discharge Plan Discharge Clinical Impression: Lightheadedness, CATALINO (acute kidney injury) Patient Disposition: Home, Self-Care Instructions: Acute Kidney Injury (DC), Lightheadedness (ED) Additional Instructions: Resume all home medications as prescribed. Continue to drink plenty of water to remain well hydrated. You need to follow-up with your primary care doctor in the next week for repeat lab work to evaluate your kidneys. Do not hesitate to return to the emergency room for any worsening of your symptoms. Prescriptions: No Action cilostazol 50 mg tablet 50 mg PO BID atorvastatin 80 mg tablet 80 mg PO DAILY Eliquis 5 mg tablet 5 mg PO BID furosemide 40 mg tablet 40 mg PO DAILY sertraline 50 mg tablet 50 mg PO DAILY doxycycline hyclate 100 mg tablet 100 mg PO BID Qty: 6 0RF acetaminophen-codeine 300-30 mg tablet 1 tab PO BID PRN (Reason: severe pain (scale score 7-10)) Qty: 5 0RF lisinopril 30 mg tablet 30 mg PO DAILY melatonin [Melatin] 3 mg tablet 1.5 mg PO BEDTIME docusate sodium 100 mg capsule 100 mg PO DAILY quetiapine 25 mg tablet 25 mg PO BID gabapentin 100 mg capsule See Rx Instructions PO BEDTIME Qty: 90 6RF Rx Instructions: 1-3 caps orally bedtime; clonazepam 1 mg tablet 1 mg PO BEDTIME PRN clonazepam 0.5 mg tablet PO PRN metoprolol tartrate 50 mg tablet 50 mg PO BID tamsulosin 0.4 mg capsule 0.4 mg PO DAILY Referrals: Sesar Pereyra MD [Primary Care Provider] - Print Language: Moroccan
[2024-03-14 07:58] VITALS: BP 127/68; PULSE 51; RESP 11; TEMP 36.7; O2SAT 98
[2024-03-14 08:56] LABS: Alanine Aminotransferase 19 U/L (0-40); Albumin Level 3.8 g/dL (3.5-5.0); Alkaline Phosphatase 102 U/L (39-117); Anion Gap 12 (12-20); Aspartate Amino Transferase 23 U/L (5-37); Bilirubin Total 0.5 mg/dL (0.0-1.0); Blood Urea Nitrogen 16 mg/dL (9-16); Calcium 9.1 mg/dL (8.4-10.2); Carbon Dioxide 27 mmol/L (22-29); Chloride 108 mmol/L (96-108); Estimated Glomerular Filt Rate 44; Glucose Random 92 mg/dL (60-115); Potassium 4.2 mmol/L (3.3-5.1); Sodium 143 mmol/L (135-145); Total Protein 6.5 g/dL (6.5-8.0)
[2024-03-14 10:24] VITALS: BP 141/68; PULSE 53; RESP 16; TEMP 36.7; O2SAT 96
== END 2024-03-14 10:25 | disposition home or self-care (01) ==
PROVIDERS: Emergency Provider Student in an Organized Health Care Education/Training Program; PCP Internal Medicine
DX: R42 Dizziness and giddiness (principal); I48.91 Unspecified atrial fibrillation; I10 Essential (primary) hypertension; Z79.899 Other long term (current) drug therapy; Z87.891 Personal history of nicotine dependence
CPT/HCPCS: 36415; 80053; 93005; 99283; 99285

== ENCOUNTER → 2024-03-14 01:39 | Outpatient (BNV) | payer MEDICARE, SELFPAY | PROVIDERS: Emergency Provider Student in an Organized Health Care Education/Training Program; PCP Internal Medicine; Visit Provider Internal Medicine Cardiovascular Disease | DX: I44.0 Atrioventricular block, first degree (principal) | CPT/HCPCS: 93010 ==

== ENCOUNTER 2024-03-18 14:05 | Outpatient (AMB) | payer MEDICARE, SELFPAY ==
--- NOTE | 2024-03-18 14:07 | MHC.OFFVIS ---
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 Bilingual Required: No Supplier Quality Manager: Supplier Quality Manager Present Allergies No Known Allergies [No Known Allergies*] Allergy (Verified 03/18/24 16:01) HPI HPI [facility] ED f/u: Details: Alex is a 78-year-old male past medical history of hypertension, hyperlipidemia, peripheral vascular disease, dilated ascending aorta, coronary artery disease, lad stent, atrial flutter who was recently seen in the [facility] emergency room x2 and the [facility] emergency room x1 for symptoms lightheadedness and he did have a fall resulting in a fractured distal clavicle. At [facility] he tested positive for COVID yesterday. He now presents here for follow-up. Today he reports that he is feeling weak, lightheaded and having pain in his shoulder. He has not had any recurrent falls. He says in the last week he has had problems with diarrhea, food not tasting good, dizziness and weakness. He has not had chest discomfort at rest or with activity. He has no concerning shortness of breath. He is not feeling heart palpitations. He has been sedentary. He is sitting in a wheelchair at this visit. He says he is taking his meds as directed. No bleeding issues reported. His significant other is present and expresses much concern about him. [facility] Medical History Hypersomnia Snoring Neuropathy Atherosclerotic cardiovascular disease History of alcohol abuse History of COVID-19 On beta jose at home COPD (chronic obstructive pulmonary disease) On anticoagulant therapy History of atrial fibrillation PVD (peripheral vascular disease) Renal cell carcinoma Hypertension Depression Anxiety Diverticulitis Surgical History H/O cardiac catheterization History of colectomy S/P femoral-femoral bypass surgery Social History Household Members: Spouse Housing: House Do you presently have visiting nurse or other home services: No Alcohol intake: never Patient Tobacco Use Status: Former Tobacco user Substance Use Type: Marijuana Advance Directives: No Advance Directives Information Provided: Yes Advance Directives Date on File: 06/09/21 Do you have a plan to hurt others: No Plan service: Yes Current occupational status: retired Review of Systems ENT Reports dizziness Card Denies chest pain, Denies chest pain at rest, Denies chest pain with activity, Denies rapid heart rate, Denies pedal edema, Denies edema, Denies leg edema, Denies lightheadedness, Denies palpitations, Denies dyspnea, Denies dyspnea on exertion and Denies orthopnea Resp Denies cough, Denies dyspnea and Denies dyspnea on exertion GI Denies hematochezia and Denies change in stool character Musc Denies abnormal gait, Reports limited range of motion, Reports muscle cramps, Denies muscle weakness, Denies numbness, Denies radiating pain into limb, Denies stiffness and Denies tingling Neuro Denies abnormal gait, Reports dizziness, Denies numbness and Denies tingling Endo Denies palpitations Assessment & Plan Assessment & Plan (1) Hypotension: Code(s): I95.9 - Hypotension, unspecified Category: Medical Plan: [facility] ER evaluations on 03/12 - for lightheadedness and AFib RVR that was treated with IV metoprolol, 03/14 for lightheadedness and CATALINO. [facility] ER evaluation 03/17 after having lightheadedness, fall down the stairs at home and sustaining a distal clavicle fracture. He tested positive for COVID. Today he tells me that he was told he did not have COVID. He is reporting current weakness, lightheadedness, fatigue, shoulder pain. No chest pains or shortness of breath. Unable to manually auscultate blood pressure. Using a automated cuff, blood pressure 74/35, pulse 156. He is denying heart palpitations. He has a known history of paroxysmal atrial flutter/fibrillation and reports compliance with his meds. He has not been eating and drinking normally in the last week as he reports now that he had diarrhea and food did not taste good. With his significant hypotension and tachycardia he needs further medical evaluation and treatment. Report called to the emergency room, they have room available and patient will not need to wait. Mask applied to him. Transported to the emergency room via wheelchair. Significant other with him. (2) Paroxysmal atrial fibrillation: Code(s): I48.0 - Paroxysmal atrial fibrillation Category: Medical Plan: History of paroxysmal atrial fibrillation. He is on metoprolol for heart rate control. He is on Eliquis for anticoagulation. No bleeding issues reported. He has very rapid heart rate on exam. EKG to be done in the emergency room. (3) Coronary artery disease: Code(s): I25.10 - Atherosclerotic heart disease of cahto coronary artery without angina pectoris Category: Medical Plan: History of coronary artery disease with LAD stent, 05/05/2022. Last echocardiogram done 02/25/2022 show EF 55-60%, unable to assess for wall motion abnormality, ascending aorta 4.1 cm. He denies chest discomfort or shortness of breath at this visit. He is not on aspirin as he is on Eliquis. He is on metoprolol, lisinopril, high-dose atorvastatin with ideal LDL goal less than 70. No recent lipid profile in our system. This will need to be addressed on post hospital follow up. (4) Coronary artery calcification seen on CT scan: Code(s): I25.10 - Atherosclerotic heart disease of cahto coronary artery without angina pectoris Category: Medical Plan: History of CAD (5) S/P cardiac cath: Comment: 05/05/2022, left main mild disease, lad proximal 65% stenosis, 1st diagonal 100% stenosis, left circumflex minimal irregularities, RCA mid 50% stenosis, right PDA 50% stenosis, stent placed to the proximal LAD Code(s): Z98.890 - Other specified postprocedural states Category: Medical Plan: As above (6) PVD (peripheral vascular disease): Code(s): I73.9 - Peripheral vascular disease, unspecified Category: Medical Plan: He reports of history of stent in his right femoral region, fem to fem bypass on the left. He has ongoing issues with numbness in his lower extremities. He normally ambulates steadily. He has been followed by Dr. Mendoza. (7) Hypertension: Code(s): I10 - Essential (primary) hypertension Category: Medical Qualifiers: Hypertension type: renovascular hypertension Qualified Code(s): I15.0 - Renovascular hypertension Plan: History of hypertension. Currently hypotensive as above. 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
== END 2024-03-18 14:50 | disposition home or self-care (01) ==
PROVIDERS: PCP Internal Medicine; Visit Provider Nurse Practitioner Family
DX: I95.9 Hypotension, unspecified (principal); I48.0 Paroxysmal atrial fibrillation; I25.10 Atherosclerotic heart disease of native coronary artery without angina pectoris; Z98.890 Other specified postprocedural states; I73.9 Peripheral vascular disease, unspecified; I15.0 Renovascular hypertension
CPT/HCPCS: 93010; 99215

== ENCOUNTER → 2024-03-18 14:05 | Outpatient (BNVA) | payer MEDICARE, SELFPAY | PROVIDERS: PCP Internal Medicine; Visit Provider Nurse Practitioner Family | DX: I15.0 Renovascular hypertension (principal); E78.5 Hyperlipidemia, unspecified; I73.9 Peripheral vascular disease, unspecified; I95.9 Hypotension, unspecified; I48.0 Paroxysmal atrial fibrillation; I25.10 Atherosclerotic heart disease of native coronary artery without angina pectoris; Z98.890 Other specified postprocedural states | CPT/HCPCS: 99212 ==

== ENCOUNTER 2024-03-18 15:01 | Inpatient (IN) | payer MEDICARE, OTHER, SELFPAY ==
[2024-03-18] VITALS (8 sets, daily range): BP systolic 77–134; BP diastolic 51–102; PULSE 63–151; RESP 13–24; TEMP 36.8–37.1; O2SAT 93–98; BMI 32.8; BMI 25.1
--- NOTE | 2024-03-18 | ECG_ITS ---
Test Reason : TACHY Blood Pressure : / mmHG Vent. Rate : 149 BPM Atrial Rate : 000 BPM P-R Int : 000 ms QRS Dur : 112 ms QT Int : 318 ms P-R-T Axes : 000 -13 105 degrees QTc Int : 500 ms Supraventricular tachycardia probably of AVNRT type ST & T wave abnormality, consider lateral ischemia Abnormal ECG When compared with ECG of 14-MAR-2024 01:39, Supraventricular tachycardia has replaced NSr Referred By: Generic ED Physician Electronically Signed By:LATOYA JOHNSON MD
--- NOTE | ~2024-03-18 | CT_ITS ---
EXAMINATION: CT OF THE THORAX, ABDOMEN AND PELVIS WITHOUT CONTRAST CLINICAL INFORMATION: Fell; pain left chest/contusion COMPARISON: CT abdomen/pelvis June 01, 2023 TECHNIQUE: Multiple axial images were obtained through the chest, abdomen, and pelvis without intravenous contrast. Sagittal and coronal reformatted images were obtained on the technologist's workstation. This CT examination was performed using dose optimization techniques as appropriate, variously including the following: *Automated exposure control *Adjustment of mA and/or kV according to patient size (this includes techniques or standardized protocols for targeted exams where dose is matched to indication/reason for exam; i.e. extremities or head) *Use of iterative reconstruction technique DLP: 1670 mGy-cm Disclaimer: Optimal assessment of the viscera is limited without the use of contrast. FINDINGS: THORAX: Thyroid Gland: The visualized thyroid gland is normal. Lymph Nodes: No supraclavicular, axillary, mediastinal or hilar lymphadenopathy is identified. Cardiovascular And Mediastinum: The heart is normal in size without pericardial effusion. No coronary artery calcification. The great vessels of the thorax are normal in course. Airways: The trachea and central bronchi are normal. Lungs: No airspace consolidation. Emphysematous changes. Left lower lobe rounded atelectasis. No suspicious nodules or masses. Pleura: No pleural effusion. No pneumothorax. ABDOMEN/PELVIS: Liver: Homogeneous in attenuation. Scattered cysts. Normal in size. Gallbladder: Cholelithiasis. Noninflamed. Biliary System: No intrahepatic or extrahepatic biliary dilation. Pancreas: Homogeneous in attenuation. Spleen: Normal in size. Genitourinary: No contour deforming masses. No perinephric fluid collection. No renal calculi. No hydroureteronephrosis. Adrenal Glands: Unremarkable. Reproductive: Prostate enlarged. Gastrointestinal: The visualized alimentary tract is normal in course. No evidence of obstruction. Appendix: Noninflamed. Peritoneum: No pneumoperitoneum. No intra-abdominal fluid collection. Vasculature: Ascending aortic aneurysm measuring 47 mm. No abdominal aortic aneurysm. Femoral-femoral bypass graft. Lymph Nodes: No pathologically enlarged abdominal or pelvic lymph nodes. SOFT TISSUES/MUSCULOSKELETAL: Anterior abdominal wall repair. There is no acute fracture or significant focal osseous lesion. CT/CT abdomen pelvis wo IV con IMPRESSION: 1. No acute traumatic pathology of the chest, abdomen, pelvis. 2. Fusiform ascending aortic aneurysm measuring 47 mm, not significantly changed since CTA chest September 2016. 3. Emphysematous changes of the lungs. Fleischner guidelines were followed. Electronically signed by: Zaki Waite DO 03/18/2024 09:48 PM [facility]
--- NOTE | ~2024-03-18 | CT_ITS ---
EXAM: CT HEAD WITHOUT CONTRAST CT CERVICAL SPINE INDICATION: on eliquis fall TECHNIQUE: A noncontrast CT scan was performed from the skull base to the vertex. A noncontrast CT scan of the cervical spine was performed from the base of the skull through T1 at 2.5 mm and 0.625 mm collimation. Coronal and sagittal reformats were obtained at the acquisition workstation. This CT examination was performed using dose optimization techniques as appropriate, variously including the following: * Automated exposure control * Adjustment of mA and/or kV according to patient size (this includes techniques or standardized protocols for targeted exams where dose is matched to indication/reason for exam; i.e. extremities or head) * Use of iterative reconstruction technique Dose length product is 1221 mGy-cm. COMPARISON: CT 09/06/2021 FINDINGS: Head: There is no evidence of acute intracranial hemorrhage or edematous large vessel territorial infarction. No abnormal mass effect or midline shift is seen. Hay to white matter differentiation is well preserved. No abnormal extra-axial fluid collections are identified. Commensurate prominence of the ventricles and sulci is compatible with generalized parenchymal volume loss. There is patchy periventricular and subcortical white matter hypoattenuation, most likely representing microangiopathic disease. No acute calvarial fracture.. Paranasal sinuses and mastoid air cells are well-aerated. Cervical Spine: The atlantooccipital and atlantoaxial articulations is maintained. Vertebral body alignment is anatomic. No evidence of acute fracture. Bones are osteopenic. Multilevel degenerative spondylosis of the spine, with multilevel disc degenerative changes, multilevel facet degeneration. The central bony canal is grossly maintained.. No prevertebral soft tissue swelling. Lung apices are clear. CT/CT cervical spine wo IV con IMPRESSION: 1. No CT evidence of acute intracranial hemorrhage or edematous territorial infarction. 2. No CT evidence of acute cervical spine fracture or traumatic malalignment. 3. Cervical spondylosis. Electronically signed by: Noe Shipman MD 03/18/2024 07:10 PM [facility]
--- NOTE | 2024-03-18 15:56 | ED.GENADULT ---
HPI - General Adult General Chief complaint: Arrhythmia/Palpitations Stated complaint: low bp sent from cardiology Time Seen by Provider: 03/18/24 16:24 Related Data Home Medications ?Medication ?Instructions ?Recorded ?Confirmed docusate sodium 100 mg capsule 100 mg PO DAILY 08/17/21 03/18/24 apixaban 5 mg tablet (Eliquis) 5 mg PO BID 01/27/22 03/18/24 atorvastatin 80 mg tablet 80 mg PO DAILY 01/27/22 03/18/24 furosemide 40 mg tablet 40 mg PO DAILY 01/27/22 03/18/24 sertraline 50 mg tablet 50 mg PO DAILY 07/06/22 03/18/24 metoprolol tartrate 50 mg tablet 50 mg PO BID 10/24/22 03/18/24 quetiapine 25 mg tablet 25 mg PO BID 12/28/22 03/18/24 tamsulosin 0.4 mg capsule 0.4 mg PO DAILY 03/07/23 03/18/24 cilostazol 50 mg tablet 50 mg PO BID 03/27/23 03/18/24 clonazepam 0.5 mg tablet 0.5 mg PO BID PRN Anxiety 11/15/23 03/18/24 clopidogrel 75 mg tablet 75 mg PO DAILY 03/18/24 03/18/24 dextroamphetamine-amphetamine 7.5 1 tab PO DAILY 03/18/24 03/18/24 mg tablet gabapentin 100 mg capsule 100 - 300 mg PO BEDTIME PRN Pain 03/18/24 03/18/24 (Scale Score 1-3) lisinopril 40 mg tablet 40 mg PO DAILY 03/18/24 03/18/24 morphine 15 mg immediate release 15 mg PO Q4H PRN Pain (Scale Score 03/18/24 tablet 7-10) Allergies Allergy/AdvReac Type Severity Reaction Status Date / Time No Known Allergies Allergy Verified 03/18/24 16:01 [No Known Allergies*] [facility] Past Medical History Medical History Hypersomnia Snoring Neuropathy Atherosclerotic cardiovascular disease History of alcohol abuse History of COVID-19 On beta jose at home COPD (chronic obstructive pulmonary disease) On anticoagulant therapy History of atrial fibrillation PVD (peripheral vascular disease) Renal cell carcinoma Hypertension Depression Anxiety Diverticulitis Surgical History H/O cardiac catheterization History of colectomy S/P femoral-femoral bypass surgery Social History Social History Household Members: Spouse Housing: House Do you presently have visiting nurse or other home services: No Alcohol intake: never Patient Tobacco Use Status: Former Tobacco user Smoked in Last 30 Days: No Use of substances other than those prescribed or required for medical reasons: No Substance Use Type: Marijuana Advance Directives: No Advance Directives Information Provided: Yes Advance Directives Date on File: 06/09/21 Do you have a plan to hurt others: No Plan Nutrition Risks: No Nutritional Risk service: Yes Current occupational status: retired Physical Exam ED Vital Signs: Vital Signs - 24 hr 03/18/24 15:40 03/18/24 15:57 03/18/24 16:16 Temperature 98.3 F Pulse Rate 151 H 96 147 H Respiratory Rate 24 H 18 18 Blood Pressure 77/53 L Pulse Oximetry 94 98 Oxygen Delivery Method Room Air Room Air 03/18/24 17:31 03/18/24 17:40 03/18/24 18:15 Temperature 98.7 F Pulse Rate 90 83 Respiratory Rate 13 16 Blood Pressure 97/58 L 134/102 H Pulse Oximetry 97 96 Oxygen Delivery Method Room Air Room Air 03/18/24 21:08 03/18/24 22:38 Temperature 98.6 F Pulse Rate 63 67 Respiratory Rate 17 17 Blood Pressure 100/51 L 96/55 L Pulse Oximetry 93 Oxygen Delivery Method Room Air Room Air BMI result Body Mass Index 25.1 Course Course Course Narrative: RME: 79-year-old male presents to ED for vaginal of low blood pressure. Patient was seen in the cardiology for follow-up and blood pressure systolic was in the 70s. Patient was seen yesterday at [facility] for fall and has a right clavicle fracture and left lower extremity hematoma. Medications Administered Discontinued Medications Generic Name Dose Route Start Last Admin Trade Name Freq PRN Reason Stop Dose Admin Ceftriaxone Sodium 2 gm 03/18/24 20:23 03/18/24 20:44 Ceftriaxone Sodium 2 Gm Vial IVPUSH 03/18/24 20:24 2 gm ONCE ONE Administration Sodium Chloride 1,000 mls @ 999 mls/hr 03/18/24 17:00 03/18/24 20:44 Ns IV 03/18/24 18:00 Infused .Q1H1M SOTERO Infusion Sodium Chloride 1,000 mls @ 999 mls/hr 03/18/24 20:30 03/18/24 20:45 Ns IV 03/18/24 21:30 999 mls/hr .Q1H1M SOTERO Administration Sodium Chloride 1,000 mls @ 999 mls/hr 03/18/24 20:45 03/18/24 21:14 Ns IV 03/18/24 21:45 Not Given .Q1H1M SOTERO Metoprolol Tartrate 50 mg 03/18/24 18:18 03/18/24 18:48 Metoprolol Tartrate 50 Mg Tablet PO 03/18/24 18:19 50 mg ONCE ONE Administration Protocol Morphine Sulfate 2 mg 03/18/24 18:27 03/18/24 18:48 Morphine Sulfate 2 Mg/Ml Cartridge IVPUSH 03/18/24 18:28 2 mg ONCE ONE Administration Protocol Medical Decision Making Lab Data 03/18/24 19:38 03/18/24 19:38 Labs: Lab Results 03/18/24 03/18/24 03/18/24 Range/Units 19:38 19:45 21:10 WBC 10.4 (4.8-10.8) X10*3/uL RBC 4.13 L (4.60-5.80) X10*6/uL Hgb 13.4 L (14.0-18.0) g/dl Hct 41.7 L (42.0-52.0) % MCV 101.0 H D (80.0-98.0) fL MCH 32.4 (27.0-33.0) pg MCHC 32.1 (31.0-36.0) g/dl RDW 14.3 (11.0-16.0) % Plt Count 247 (160-400) X10*3/uL MPV 10.5 (9.4-12.4) fL Immature Gran % (Auto) 0.4 (0.0-0.4) % Neut % (Auto) 78.5 H (45-73) % Lymph % (Auto) 9.9 L (20-40) % Hitchcock % (Auto) 10.7 (2-11) % Eos % (Auto) 0.2 (0-4) % Baso % (Auto) 0.3 (0-2) % Lymph # (Auto) 1.0 L (1.2-4.9) X10*3/uL Hitchcock # (Auto) 1.1 (0.1-1.2) X10*3/uL Eos # (Auto) 0.0 (0.0-0.4) X10*3/uL Baso # (Auto) 0.0 (0.0-0.2) X10*3/uL Abs Immat Gran (auto) 0.04 H (0.00-0.03) X10*3/uL Absolute Neuts (auto) 8.2 (2.0-8.3) x10*3/uL Absolute Nucleated RBC 0.000 (0.0-0.012) X10*3/uL Nucleated RBC % (auto) 0.0 (0.0-0.2) /100WBC Smear Tech's Comments VERIFIED Sodium 139 (135-145) mmol/L Potassium 4.6 (3.3-5.1) mmol/L Chloride 104 (96-108) mmol/L Carbon Dioxide 23 (22-29) mmol/L Anion Gap 17 (12-20) BUN 24 H (9-16) mg/dL Creatinine 2.18 H (0.5-1.4) mg/dL Estim Creat Clear Calc 29.3 Estimated GFR 29 Random Glucose 103 (60-115) mg/dL Lactic Acid 2.7 H* (0.5-2.0) mmol/L Calcium 8.5 D (8.4-10.2) mg/dL Magnesium 2.0 (1.6-2.6) mg/dL Total Bilirubin 0.5 (0.0-1.0) mg/dL AST 18 (5-37) U/L ALT 14 (0-40) U/L Alkaline Phosphatase 103 (39-117) U/L Troponin I High Sens 45.8 H D (<3.5-35.0) ng/L B-Natriuretic Peptide 131 H (<100) pg/mL Total Protein 6.2 L (6.5-8.0) g/dL Albumin 3.5 (3.5-5.0) g/dL Urine Color Dark Yellow Urine Appearance Cloudy Urine pH 5.0 (5.0-9.0) Ur Specific Sparks 1.020 (1.005-1.025) Urine Protein 30 (1+) H (Neg-Trace) mg/dL Urine Glucose (UA) Negative (Negative) mg/dL Urine Ketones Trace (Negative) mg/dL Urine Blood Negative (Negative) Urine Nitrite Negative (Negative) Ur Leukocyte Esterase Trace H (Negative) Urine RBC 0-2 (0-2) /HPF Urine WBC 0-5 (0-5) /HPF Ur Squamous Epith Cells 0-2 (0-2) /HPF Calcium Oxalate Crystal Present Urine Bacteria None Seen (None Seen) Hyaline Casts >20 (0-2) /LPF Influenza Type A (PCR) NEGATIVE (Negative) Influenza Type B (PCR) NEGATIVE (Negative) RSV RNA Qual (PCR) NEGATIVE (Negative) SARS-CoV-2 RNA (RT-PCR) NEGATIVE (Negative) Discharge Plan Discharge Clinical Impression: Atrial flutter Patient Disposition: Admitted As Inpatient
--- NOTE | 2024-03-18 16:57 | ED.ARRPALP ---
HPI - Arrhythmia/Palpitations General Chief Complaint: Arrhythmia/Palpitations Stated Complaint: low bp sent from cardiology Time Seen by Provider: 03/18/24 16:24 History of Present Illness HPI narrative: Patient is a 79-year-old male with a history of atrial fibrillation currently on Eliquis. Had an episode of light-headedness subsequently fell down some stairs yesterday. Was seen at [facility] had a CT scan of the head and C-spine to both grossly negative. Patient today went to follow up with his residential treatment staff. He was noted to have an elevated heart rate and also low blood pressure. Sent down to the emergency department. MD complaint: rapid heart beat Related Data Home Medications ?Medication ?Instructions ?Recorded ?Confirmed docusate sodium 100 mg capsule 100 mg PO DAILY 08/17/21 09/05/23 lisinopril 30 mg tablet 30 mg PO DAILY 08/17/21 09/05/23 melatonin 3 mg tablet (Melatin) 1.5 mg PO BEDTIME 08/17/21 09/05/23 apixaban 5 mg tablet (Eliquis) 5 mg PO BID 01/27/22 09/05/23 atorvastatin 80 mg tablet 80 mg PO DAILY 01/27/22 09/05/23 furosemide 40 mg tablet 40 mg PO DAILY 01/27/22 09/05/23 sertraline 50 mg tablet 50 mg PO DAILY 07/06/22 09/05/23 metoprolol tartrate 50 mg tablet 50 mg PO BID 10/24/22 09/05/23 quetiapine 25 mg tablet 25 mg PO BID 12/28/22 09/05/23 clonazepam 1 mg tablet 1 mg PO BEDTIME PRN 03/02/23 09/05/23 tamsulosin 0.4 mg capsule 0.4 mg PO DAILY 03/07/23 09/05/23 cilostazol 50 mg tablet 50 mg PO BID 03/27/23 09/05/23 clonazepam 0.5 mg tablet mg PO PRN 11/15/23 Previous Rx's ?Medication ?Instructions ?Recorded gabapentin 100 mg capsule See Rx Instructions PO BEDTIME #90 12/28/22 caps acetaminophen 300 mg-codeine 30 mg 1 tab PO BID PRN severe pain 09/06/23 tablet (scale score 7-10) #5 tabs doxycycline hyclate 100 mg tablet 100 mg PO BID #6 tabs 09/06/23 Allergies Allergy/AdvReac Type Severity Reaction Status Date / Time No Known Allergies Allergy Verified 03/18/24 16:01 [No Known Allergies*] Review of Systems Review of Systems: Positive generalized malaise weakness Yes all other systems are reviewed and are negative [facility] Past Medical History Attestation statement: The following information was validated with the patient. Medical History Hypersomnia Snoring Neuropathy Atherosclerotic cardiovascular disease History of alcohol abuse History of COVID-19 On beta jose at home COPD (chronic obstructive pulmonary disease) On anticoagulant therapy History of atrial fibrillation PVD (peripheral vascular disease) Renal cell carcinoma Hypertension Depression Anxiety Diverticulitis Surgical History H/O cardiac catheterization History of colectomy S/P femoral-femoral bypass surgery Social History Social History Household Members: Spouse Housing: House Do you presently have visiting nurse or other home services: No Alcohol intake: never Patient Tobacco Use Status: Former Tobacco user Smoked in Last 30 Days: No Use of substances other than those prescribed or required for medical reasons: No Substance Use Type: Marijuana Advance Directives: No Advance Directives Information Provided: Yes Advance Directives Date on File: 06/09/21 Do you have a plan to hurt others: No Plan service: Yes Current occupational status: retired Physical Exam Vital Signs: Vital Signs: Last Vital Signs Temp 98.7 F 03/18/24 18:15 Pulse 83 03/18/24 18:15 Resp 16 03/18/24 18:15 BP 134/102 H 03/18/24 18:15 Pulse Ox 96 03/18/24 18:15 O2 Del Method Room Air 03/18/24 18:15 BMI result Body Mass Index 25.1 Appearance: Alert. Oriented X3. No acute distress. Positive abrasion to the left forehead area Eyes: Pupils equal, round and reactive to light. ENT: Pharynx normal. Neck: Normal inspection. Neck supple. No lymph nodes noted. No crepitus. There is no gross C-spine tenderness elicited on palpation CVS: Tachycardic and regular. Pulses normal. Normal S1 and S2. Respiratory: No respiratory distress. Breath sounds normal. No Wheezing. No rales. There is an area of large contusion over the left posterior chest. Abdomen: Soft and nontender. No rigidity. No distention. good BS x4 there is a large area of contusion ecchymosis over the left flank area Skin: Skin warm and dry. Normal skin color. Normal skin turgor. Extremities: No lower extremity edema. Neurovascular intact to all extremities. No Lacerations. No Rash. There is large contusion over the proximal left leg. Neuro: Oriented X 3. No motor deficit. No sensory deficit. Moving all extermities. No slurred speech Medications Administered Generic Name Dose Route Start Last Admin Trade Name Freq PRN Reason Stop Dose Admin Sodium Chloride 1,000 mls @ 999 mls/hr 03/18/24 20:30 03/18/24 20:45 Ns IV 03/18/24 21:30 999 mls/hr .Q1H1M SOTERO Administration Discontinued Medications Generic Name Dose Route Start Last Admin Trade Name Freq PRN Reason Stop Dose Admin Ceftriaxone Sodium 2 gm 03/18/24 20:23 03/18/24 20:44 Ceftriaxone Sodium 2 Gm Vial IVPUSH 03/18/24 20:24 2 gm ONCE ONE Administration Sodium Chloride 1,000 mls @ 999 mls/hr 03/18/24 17:00 03/18/24 20:44 Ns IV 03/18/24 18:00 Infused .Q1H1M SOTERO Infusion Metoprolol Tartrate 50 mg 03/18/24 18:18 03/18/24 18:48 Metoprolol Tartrate 50 Mg Tablet PO 03/18/24 18:19 50 mg ONCE ONE Administration Protocol Morphine Sulfate 2 mg 03/18/24 18:27 03/18/24 18:48 Morphine Sulfate 2 Mg/Ml Cartridge IVPUSH 03/18/24 18:28 2 mg ONCE ONE Administration Protocol Medical Decision Making Medical Decision Making MDM Narrative: Patient is heart rate initially was 150. It looks like an atrial flutter by my interpretation. There is no acute ST segment elevation. At that time patient had a soft blood pressure of proximally 90/50. Given a small bolus of fluids. Patient went into a sinus rhythm. A repeat EKG was done. It showed a sinus rhythm heart rate was 60 GA QRS QTC normal no acute ST segment elevation. Patient's hemoglobin is 13.4 there is no evidence for anemia. Creatinine is 2.18 this is slightly above baseline. Patient is lactate was slightly elevated. 2.7 today. Patient's history not consistent with sepsis. More likely related to the atrial fibrillation/atrial flutter. Patient's white count is normal. No fever no chills. Family reported there was a positive COVID test a couple days ago. We repeated the COVID flu RSV which were all negative. Patient's BNP is 130 at 79 there is no evidence for congestive heart failure. Nevertheless cultures were obtained. A dose of antibiotic was given. Blood cultures were drawn. Repeat focal exam for sepsis was done. Grossly patient appear well. Symptoms much improved after heart rate has come down. Will admit patient for further evaluation monitoring given the extremis of with a heart rate was. Currently in stable condition. Because patient fell. Had a dizziness episode and had the bruising. We did a CT scan of the head and C-spine which were both grossly negative. I reviewed the CT scan chest abdomen pelvis myself. I did not see any gross intra-abdominal and or intrathoracic bleeding. No gross rib fracture noted. Still pending final results of the CT scan chest abdomen pelvis from Radiology. Case discussed with the hospitalist team. Will admit for further evaluation Differential Diagnosis Differential Diagnoses: The differential diagnosis associated with the presentation includes Atrial fibrillation atrial flutter, bleeding, infection Admission/Observation Consideration of admission/observation: Escalation of care including admission/observation considered Consult Healthcare Provider Management of the patient was discussed with: Hospitalist Lab Data MDM Lab Attestation statement: I reviewed the patient's lab results. 03/18/24 19:38 03/18/24 19:38 Labs: Lab Results 03/18/24 03/18/24 Range/Units 19:38 19:45 WBC 10.4 (4.8-10.8) X10*3/uL RBC 4.13 L (4.60-5.80) X10*6/uL Hgb 13.4 L (14.0-18.0) g/dl Hct 41.7 L (42.0-52.0) % MCV 101.0 H D (80.0-98.0) fL MCH 32.4 (27.0-33.0) pg MCHC 32.1 (31.0-36.0) g/dl RDW 14.3 (11.0-16.0) % Plt Count 247 (160-400) X10*3/uL MPV 10.5 (9.4-12.4) fL Immature Gran % (Auto) 0.4 (0.0-0.4) % Neut % (Auto) 78.5 H (45-73) % Lymph % (Auto) 9.9 L (20-40) % [place] % (Auto) 10.7 (2-11) % Eos % (Auto) 0.2 (0-4) % Baso % (Auto) 0.3 (0-2) % Lymph # (Auto) 1.0 L (1.2-4.9) X10*3/uL [place] # (Auto) 1.1 (0.1-1.2) X10*3/uL Eos # (Auto) 0.0 (0.0-0.4) X10*3/uL Baso # (Auto) 0.0 (0.0-0.2) X10*3/uL Abs Immat Gran (auto) 0.04 H (0.00-0.03) X10*3/uL Absolute Neuts (auto) 8.2 (2.0-8.3) x10*3/uL Absolute Nucleated RBC 0.000 (0.0-0.012) X10*3/uL Nucleated RBC % (auto) 0.0 (0.0-0.2) /100WBC Smear Tech's Comments VERIFIED Sodium 139 (135-145) mmol/L Potassium 4.6 (3.3-5.1) mmol/L Chloride 104 (96-108) mmol/L Carbon Dioxide 23 (22-29) mmol/L Anion Gap 17 (12-20) BUN 24 H (9-16) mg/dL Creatinine 2.18 H (0.5-1.4) mg/dL Estim Creat Clear Calc 29.3 Estimated GFR 29 Random Glucose 103 (60-115) mg/dL Lactic Acid 2.7 H* (0.5-2.0) mmol/L Calcium 8.5 D (8.4-10.2) mg/dL Magnesium 2.0 (1.6-2.6) mg/dL Total Bilirubin 0.5 (0.0-1.0) mg/dL AST 18 (5-37) U/L ALT 14 (0-40) U/L Alkaline Phosphatase 103 (39-117) U/L Troponin I High Sens 45.8 H D (<3.5-35.0) ng/L B-Natriuretic Peptide 131 H (<100) pg/mL Total Protein 6.2 L (6.5-8.0) g/dL Albumin 3.5 (3.5-5.0) g/dL Influenza Type A (PCR) NEGATIVE (Negative) Influenza Type B (PCR) NEGATIVE (Negative) RSV RNA Qual (PCR) NEGATIVE (Negative) SARS-CoV-2 RNA (RT-PCR) NEGATIVE (Negative) Independent Interpretation I performed an independent interpretation of an: EKG (Atrial flutter heart rate 150, sinus heart rate is 60 on the 2nd EKG no acute ST segment elevation) and CT Scan (CT scan of the head was grossly negative. No evidence of bleeding.) Radiology Impression Discussion of test interpretation with radiology: I have reviewed the radiologist's reading. Chronic Conditions Patient?s care impacted by: Hypertension Critical Care Time Critical Care Time Critical Care Time: Yes Total Critical Care Time: 40 Attestation: I have personally provided 40 minutes of critical care time exclusive of time spent on separately billable procedures. ?Time includes review of lab data, radiology results, discussion with consultants, and monitoring for potential decompensation. ?Interventions were performed as documented above Discharge Plan Discharge Clinical Impression: Atrial flutter Patient Disposition: Admitted As Inpatient Prescriptions: No Action cilostazol 50 mg tablet 50 mg PO BID atorvastatin 80 mg tablet 80 mg PO DAILY Eliquis 5 mg tablet 5 mg PO BID furosemide 40 mg tablet 40 mg PO DAILY sertraline 50 mg tablet 50 mg PO DAILY doxycycline hyclate 100 mg tablet 100 mg PO BID Qty: 6 0RF acetaminophen-codeine 300-30 mg tablet 1 tab PO BID PRN (Reason: severe pain (scale score 7-10)) Qty: 5 0RF lisinopril 30 mg tablet 30 mg PO DAILY melatonin [Melatin] 3 mg tablet 1.5 mg PO BEDTIME docusate sodium 100 mg capsule 100 mg PO DAILY quetiapine 25 mg tablet 25 mg PO BID gabapentin 100 mg capsule See Rx Instructions PO BEDTIME Qty: 90 6RF Rx Instructions: 1-3 caps orally bedtime; clonazepam 1 mg tablet 1 mg PO BEDTIME PRN clonazepam 0.5 mg tablet PO PRN metoprolol tartrate 50 mg tablet 50 mg PO BID tamsulosin 0.4 mg capsule 0.4 mg PO DAILY Print Language: [place]
[2024-03-18] MEDS: 0.9 % Sodium Chloride 1,000 ML 999 ML IV ×2 (17:31→20:45)
--- NOTE | 2024-03-18 18:04 | ECG_ITS ---
Test Reason : CHANGES Blood Pressure : / mmHG Vent. Rate : 080 BPM Atrial Rate : 080 BPM P-R Int : 198 ms QRS Dur : 076 ms QT Int : 388 ms P-R-T Axes : 089 007 057 degrees QTc Int : 447 ms Sinus rhythm with Premature supraventricular complexes Nonspecific ST and T wave abnormality Abnormal ECG When compared with ECG of 18-MAR-2024 16:11, Premature supraventricular complexes are now Present Vent. rate has decreased BY 69 BPM Normal sinus rhythm has replaced Supraventricular tachycardia Nonspecific T wave abnormality now evident in Anterior leads Nonspecific T wave abnormality has replaced inverted T waves in Lateral leads Referred By: Ernestine Hernandez Electronically Signed By:LATOYA JOHNSON MD
--- NOTE | 2024-03-18 18:17 | PC.NURSE ---
pt initial hr in 150's - found to be 80's at this time. repeat EKG obtained. delay in lab draw d/t patient being difficult stick. patient with existing right clavicle fracture, bruising noted to back from previous fall. patient unsteady gait when transferring from wheelchair to bed initially. resting quietly in the room watching tv.
[2024-03-18] MEDS: Morphine Sulfate 2 MG/ML CARTRIDGE IVPUSH (18:48)
[2024-03-18] MEDS: Metoprolol Tartrate 50 MG TABLET PO (18:48)
[2024-03-18 19:57] LABS: Basophils Percent Auto 0.3 % (0-2); Eosinophils Percent Auto 0.2 % (0-4); Hematocrit 41.7 % (42.0-52.0); Hemoglobin 13.4 g/dl (14.0-18.0); Imm Gran Abs Auto 0.04 X10*3/uL (0.00-0.03); Imm Gran Pct Auto 0.4 % (0.0-0.4); Lymphocytes Percent Auto 9.9 % (20-40); MANUAL DIFF FLAG SCAN; Mean Corpuscular HGB Conc 32.1 g/dl (31.0-36.0); Mean Corpuscular Hemoglobin 32.4 pg (27.0-33.0); Mean Platelet Volume 10.5 fL (9.4-12.4); Monocytes Absolute Auto 1.1 X10*3/uL (0.1-1.2); Monocytes Percent Auto 10.7 % (2-11); Neutrophils Absolute Auto 8.2 x10*3/uL (2.0-8.3); Neutrophils Percent Auto 78.5 % (45-73); PLT CLUMP 1; Red Blood Count 4.13 X10*6/uL (4.60-5.80); Red Cell Distribution Width 14.3 % (11.0-16.0); SCAN SMEAR FLAG 1
[2024-03-18 20:12] LABS: B Type Natriuretic Peptide 131 pg/mL (<100); Troponin-I High Sensitivity 45.8 ng/L (<3.5-35.0)
[2024-03-18 20:17] LABS: Platelet Count 247 X10*3/uL (160-400); White Blood Count 10.4 X10*3/uL (4.8-10.8)
[2024-03-18 20:18] LABS: SLIDE REVIEW VERIFIED
[2024-03-18 20:22] LABS: Lactic Acid 2.7 mmol/L (0.5-2.0)
[2024-03-18 20:35] LABS: Influenza A PCR NEGATIVE (Negative); Influenza B PCR NEGATIVE (Negative); Resp Syncy Virus RNA Qual PCR NEGATIVE (Negative); SARS COV2 PCR INHOUSE NEGATIVE (Negative)
[2024-03-18] MEDS: cefTRIAXone sodium 2 GM VIAL IVPUSH (20:44)
[2024-03-18 21:00] LABS: Alanine Aminotransferase 14 U/L (0-40); Albumin Level 3.5 g/dL (3.5-5.0); Alkaline Phosphatase 103 U/L (39-117); Anion Gap 17 (12-20); Aspartate Amino Transferase 18 U/L (5-37); Bilirubin Total 0.5 mg/dL (0.0-1.0); Blood Urea Nitrogen 24 mg/dL (9-16); Calcium 8.5 mg/dL (8.4-10.2); Carbon Dioxide 23 mmol/L (22-29); Chloride 104 mmol/L (96-108); Creatinine Clr Calc Pharmacy 29.3; Estimated Glomerular Filt Rate 29; Glucose Random 103 mg/dL (60-115); Potassium 4.6 mmol/L (3.3-5.1); Sodium 139 mmol/L (135-145); Total Protein 6.2 g/dL (6.5-8.0)
[2024-03-18 21:29] LABS: Appearance Urine Cloudy; Color Urine Dark Yellow; Glucose Urine UA Negative (Negative); Leukocyte Esterase Urine Trace (Negative); Nitrite Urine Negative (Negative); UMIC TRIGGER UACC YES; Urine Blood Negative (Negative); Urine Ketones Trace mg/dL (Negative); Urine Protein 30 (1+) mg/dL (Neg-Trace)
[2024-03-18 21:48] LABS: Reflex Lactate? Lactic Acid Added
[2024-03-18 21:50] LABS: Bacteria Urine None Seen (None Seen); Calcium Oxalate Crystals Urine Present; Hyaline Casts Urine >20 /LPF (0-2); RBC Urine 0-2 /HPF (0-2); Squamous Epithelial Cell Urine 0-2 /HPF (0-2); WBC Urine 0-5 /HPF (0-5)
--- NOTE | 2024-03-18 21:59 | PC.NURSE ---
2nd lactic to be drawn after 2nd liter of NS has infused per Dr. Naranjo. Pt aware of plan of care.
--- NOTE | 2024-03-18 22:19 | PHA.MEDREC ---
Addendum entered by Ivory Jones [facility] 03/19/24 12:50: CONTACTED [facility] FOR MEDS/DIRECTIONS. PATIENT GETS BLISTER PACK FROM THERE. Addendum entered by Ivory Jones [facility] 03/18/24 22:52: COMPLETED MED HISTORY WITH MED REC... WILL NEED TO FOLLOW UP WITH PATIENT/FAMILY/PHARMACY IN AM Original Note: Pharmacy Consult ? Medication Reconciliation Pharmacy has completed the medication reconciliation. Spoke with patient and he was not able to confirm medications with me. He knew he is taking the Eliquis when I ask him but when I ask the dose and how he is taking it he is confused and was not able to answer. He stated there was no one we can call right now that would know his medications and to ask him in the morning. I confirmed his medications with claims until morning med rec can confirm who we can talk to for his medications.
--- NOTE | 2024-03-18 22:40 | PM.IMHP ---
History of Present Illness Date of Service: 03/18/24 Chief Complaint: Tachycardia This is a 79-year-old male with pertinent history of CKD stage 3, coronary artery disease, paroxysmal atrial flutter on Eliquis, mood disorder, mixed hyperlipidemia, BPH, hypertension who was sent to the emergency department from sound person's office for evaluation of tachycardia. Patient states he had a fall with dizziness and lightheadedness while he was standing 1 day prior to presentation. He was seen at [facility] where imaging revealed clavicular fracture and discharged. Patient went to his sound person's office for evaluation on the day of presentation. His blood pressure was found to be low and he was found to be tachycardic and therefore sent to the ER for further evaluation. He denies vomiting, diarrhea or poor p.o. intake. Is compliant with his home medications. No fever, chills, chest pain, palpitations, shortness of breath, abdominal pain, changes in urinary or bowel habits. In the emergency department, patient was found to be in a flutter with RVR and blood pressure found to be low. Patient was resuscitated with IV fluids with improvement in blood pressure and heart rate. Serum creatinine found to be elevated. Review of Systems Constitutional: Constitutional: Reports fatigue, Reports lethargy and Reports malaise ENT: Reports dizziness Cardiovascular: Cardiovascular: Reports no additional cardiovascular complaints Respiratory: Respiratory: Reports no additional respiratory complaints Gastrointestinal: Gastrointestinal: Reports no additional gastrointestinal complaints Genitourinary: Genitourinary: Reports no additional male genitourinary complaints Neurologic: Reports dizziness Endocrine: Endocrine: Reports fatigue [facility] Medical History Hypersomnia Snoring Neuropathy Atherosclerotic cardiovascular disease History of alcohol abuse History of COVID-19 On beta jose at home COPD (chronic obstructive pulmonary disease) On anticoagulant therapy History of atrial fibrillation PVD (peripheral vascular disease) Renal cell carcinoma Hypertension Depression Anxiety Diverticulitis Surgical History H/O cardiac catheterization History of colectomy S/P femoral-femoral bypass surgery Social History Household Members: Spouse Housing: House Do you presently have visiting nurse or other home services: No Alcohol intake: never Patient Tobacco Use Status: Former Tobacco user Smoked in Last 30 Days: No Use of substances other than those prescribed or required for medical reasons: No Substance Use Type: Marijuana Advance Directives: No Advance Directives Information Provided: Yes Advance Directives Date on File: 06/09/21 Do you have a plan to hurt others: No Plan service: Yes Current occupational status: retired Meds Allergies Allergy/AdvReac Type Severity Reaction Status Date / Time No Known Allergies Allergy Verified 03/18/24 16:01 [No Known Allergies*] Home Medications ?Medication ?Instructions ?Recorded ?Confirmed ?Last Taken ?Type docusate sodium 100 mg capsule 100 mg PO DAILY 08/17/21 03/18/24 Unknown History apixaban 5 mg tablet (Eliquis) 5 mg PO BID 01/27/22 03/18/24 05/27/22 History atorvastatin 80 mg tablet 80 mg PO DAILY 01/27/22 03/18/24 Unknown History furosemide 40 mg tablet 40 mg PO DAILY 01/27/22 03/18/24 Unknown History sertraline 50 mg tablet 50 mg PO DAILY 07/06/22 03/18/24 Unknown History metoprolol tartrate 50 mg tablet 50 mg PO BID 10/24/22 03/18/24 Unknown History quetiapine 25 mg tablet 25 mg PO BID 12/28/22 03/18/24 Unknown History tamsulosin 0.4 mg capsule 0.4 mg PO DAILY 03/07/23 03/18/24 Unknown History cilostazol 50 mg tablet 50 mg PO BID 03/27/23 03/18/24 Unknown History clonazepam 0.5 mg tablet 0.5 mg PO BID PRN Anxiety 11/15/23 03/18/24 Unknown History clopidogrel 75 mg tablet 75 mg PO DAILY 03/18/24 03/18/24 Unknown History dextroamphetamine-amphetamine 7.5 1 tab PO DAILY 03/18/24 03/18/24 Unknown History mg tablet gabapentin 100 mg capsule 100 - 300 mg PO BEDTIME PRN Pain 03/18/24 03/18/24 Unknown History (Scale Score 1-3) lisinopril 40 mg tablet 40 mg PO DAILY 03/18/24 03/18/24 Unknown History morphine 15 mg immediate release 15 mg PO Q4H PRN Pain (Scale Score 03/18/24 Unknown History tablet 7-10) Physical Exam Vital Signs and Narrative: Vital Signs: Last Vital Signs Temp 98.6 F 03/18/24 21:08 Pulse 63 03/18/24 21:08 Resp 17 03/18/24 21:08 BP 100/51 L 03/18/24 21:08 Pulse Ox 93 03/18/24 21:08 O2 Del Method Room Air 03/18/24 21:08 BMI result Body Mass Index 25.1 Middle-aged male lying in bed in no distress Neck supple, no JVD Regular rate and rhythm, S1-S2 heard Regular breath sounds bilaterally, no wheezing or crackles appreciated Abdomen soft nontender, no guarding, no rigidity Patient is awake, alert and oriented to self, place, time and person ; no focal motor deficit Psych: Normal mood No pedal edema Results Labs 03/18/24 19:38 03/18/24 19:38 Labs: Laboratory Results - last 24 hr 03/18/24 03/18/24 03/18/24 19:38 19:45 21:10 MCV 101.0 H D MCH 32.4 MCHC 32.1 RDW 14.3 Plt Count 247 MPV 10.5 Immature Gran % (Auto) 0.4 Neut % (Auto) 78.5 H Lymph % (Auto) 9.9 L [place] % (Auto) 10.7 Eos % (Auto) 0.2 Baso % (Auto) 0.3 Lymph # (Auto) 1.0 L [place] # (Auto) 1.1 Eos # (Auto) 0.0 Baso # (Auto) 0.0 Abs Immat Gran (auto) 0.04 H Absolute Neuts (auto) 8.2 Absolute Nucleated RBC 0.000 Nucleated RBC % (auto) 0.0 Smear Tech's Comments VERIFIED Anion Gap 17 Estim Creat Clear Calc 29.3 Estimated GFR 29 Random Glucose 103 Lactic Acid 2.7 H* Calcium 8.5 D Magnesium 2.0 Total Bilirubin 0.5 AST 18 ALT 14 Alkaline Phosphatase 103 Troponin I High Sens 45.8 H D B-Natriuretic Peptide 131 H Total Protein 6.2 L Albumin 3.5 Urine Color Dark Yellow Urine Appearance Cloudy Urine pH 5.0 Ur Specific [place] 1.020 Urine Protein 30 (1+) H Urine Glucose (UA) Negative Urine Ketones Trace Urine Blood Negative Urine Nitrite Negative Ur Leukocyte Esterase Trace H Urine RBC 0-2 Urine WBC 0-5 Ur Squamous Epith Cells 0-2 Calcium Oxalate Crystal Present Urine Bacteria None Seen Hyaline Casts >20 Influenza Type A (PCR) NEGATIVE Influenza Type B (PCR) NEGATIVE RSV RNA Qual (PCR) NEGATIVE SARS-CoV-2 RNA (RT-PCR) NEGATIVE Imaging Radiologist's Impressions: Impressions Chest CT 03/18/24 16:51 IMPRESSION: 1. No acute traumatic pathology of the chest, abdomen, pelvis. 2. Fusiform ascending aortic aneurysm measuring 47 mm, not significantly changed since CTA chest September 2016. 3. Emphysematous changes of the lungs. Fleischner guidelines were followed. Electronically signed by: Zaki Waite DO 03/18/2024 09:48 PM EST RP Head CT 03/18/24 16:[address]: [address] evidence of acute intracranial hemorrhage or edematous territorial infarction. 2. No CT evidence of acute cervical spine fracture or traumatic malalignment. 3. Cervical spondylosis. Electronically signed by: Noe Shipman MD 03/18/2024 07:10 PM EST RP Cervical Spine CT 03/18/24 17:10 IMPRESS[address]: 1[address] No [address] evidence of acute intracranial hemorrhage or edematous territorial infarction. 2. No CT evidence of acute cervical spine fracture or traumatic malalignment. 3. Cervical spondylosis. Electronically signed by: Noe Shipman MD 03/18/2024 07:10 PM EST RP Abdomen/Pelvis CT 03/18/24 17:14 IMPRESSION: 1. No acute traumatic pathology of the chest, abdomen, pelvis. 2. Fusiform ascending aortic aneurysm measuring 47 mm, not significantly changed since CTA chest September 2016. 3. Emphysematous changes of the lungs. Fleischner guidelines were followed. Electronically signed by: Zaki Waite DO 03/18/2024 09:48 PM EST RP Assessment and Plan (1) Atrial flutter: Status: Acute (2) Acute kidney injury: Status: Acute Plan This is a 79-year-old male with pertinent history of CKD stage 3, coronary artery disease, paroxysmal atrial flutter on Eliquis, mood disorder, mixed hyperlipidemia, BPH, hypertension who was sent to the emergency department from sound person's office for evaluation of tachycardia. #. Atrial flutter with RVR: Rate improved with IV crystalloids in the ER. Given p.o. beta-jose in the ER. Continue to monitor. On Eliquis #. Acute kidney injury on CKD: Monitor creatinine and urine output with crystalloid resuscitation. Avoid nephrotoxins. #. Acute lactic acidosis due to hypotension. No sepsis #. Right clavicular fracture due to fall likely in the setting of orthostatic presyncope. Repeat orthostatics in a.m.. Conservative management for clavicular fracture (diagnosed on imaging at [facility]) #. Hypertension: Hold lisinopril and furosemide in the setting of CATAL[place] #. Coronary artery disease: On high-intensity statin and Plavix #. Mood disorder: Continue home mood stabilizers #. BPH: On Flomax Med rec pending DVT prophylaxis: Eliquis Full code Admit as inpatient and will require two night minimum hospital stay for monitoring of heart rate, kidney function (as above), which is not possible in a lesser acute setting. Quality Stroke Does the patient have a stroke diagnosis?: No VTE Prior VTE?: No VTE Risk Level:: Medical - moderate - high VTE Device Contraindication: Treatment Not Indicated VTE Drug Contraindication: N/A - Med Ordered
[2024-03-19] VITALS (9 sets, daily range): BP systolic 96–162; BP diastolic 36–78; PULSE 54–158; RESP 15–18; TEMP 36.5–37.4; O2SAT 95–98
[2024-03-19 01:10] LABS: ~Lactic Acid-LAB USE ONLY 1.7 mmol/L (0.5-2.0)
[2024-03-19] MEDS: Morphine Sulfate 2 MG/ML CARTRIDGE IVPUSH ×4 (01:26→22:10)
[2024-03-19] MEDS: Melatonin 3 MG TABLET 6 MG PO (01:27)
[2024-03-19 05:37] LABS: MANUAL DIFF FLAG NO
[2024-03-19 05:39] LABS: Basophils Percent Auto 0.4 % (0-2); Eosinophils Absolute Auto 0.1 X10*3/uL (0.0-0.4); Hematocrit 36.2 % (42.0-52.0); Hemoglobin 11.9 g/dl (14.0-18.0); Imm Gran Abs Auto 0.02 X10*3/uL (0.00-0.03); Imm Gran Pct Auto 0.2 % (0.0-0.4); Lymphocytes Absolute Auto 1.4 X10*3/uL (1.2-4.9); Lymphocytes Percent Auto 16.9 % (20-40); Mean Corpuscular HGB Conc 32.9 g/dl (31.0-36.0); Mean Corpuscular Hemoglobin 32.5 pg (27.0-33.0); Mean Corpuscular Volume 98.9 fL (80.0-98.0); Mean Platelet Volume 10.2 fL (9.4-12.4); Monocytes Absolute Auto 1.2 X10*3/uL (0.1-1.2); Monocytes Percent Auto 15.4 % (2-11); Neutrophils Absolute Auto 5.3 x10*3/uL (2.0-8.3); Neutrophils Percent Auto 66.1 % (45-73); Platelet Count 240 X10*3/uL (160-400); Red Blood Count 3.66 X10*6/uL (4.60-5.80); Red Cell Distribution Width 14.3 % (11.0-16.0); White Blood Count 8.1 X10*3/uL (4.8-10.8)
[2024-03-19 06:17] LABS: Anion Gap 16 (12-20); Blood Urea Nitrogen 28 mg/dL (9-16); Calcium 8.7 mg/dL (8.4-10.2); Carbon Dioxide 20 mmol/L (22-29); Chloride 108 mmol/L (96-108); Creatinine Clr Calc Pharmacy 36.5; Estimated Glomerular Filt Rate 38; Glucose Random 78 mg/dL (60-115); Potassium 4.1 mmol/L (3.3-5.1); Sodium 140 mmol/L (135-145)
--- NOTE | 2024-03-19 07:22 | MHC.EDTECH ---
Pt wet himself, this tech changed his bed. Delivered breakfast to the room, pt verbally abusive telling me and the nurse we are incompetent and we dont know what we are doing. Charge nurse aware.
--- NOTE | 2024-03-19 08:26 | MHC.EDTECH ---
Pt refused orthostatics, stating he cannot move due to shoulder pain.
[2024-03-19] MEDS: 0.9 % Sodium Chloride Flush 3 ML SYRINGE IVFLUSH ×3 (09:30→22:10)
--- NOTE | 2024-03-19 10:26 | P.PNIM_ITS ---
Subjective Subjective Date of Service: 03/19/24 Interval History: f/u on afib with rvr , hypotension and CATALINO hypotension resolved. RVR resolved. Physical Exam 2 Vital Signs: Vital Signs: Last Vital Signs Temp 98.2 F 03/19/24 07:53 Pulse 76 03/19/24 07:53 Resp 18 03/19/24 07:53 BP 151/61 H 03/19/24 07:53 Pulse Ox 95 03/19/24 06:15 O2 Del Method Room Air 03/19/24 06:15 BMI result Body Mass Index 25.1 Const: Other: General: AO X 3, no acute distress Resp: CTA bilateral CVS: S1,S2,RRR GI: +BS, NT, no distention Skin: No rash MSK: right arm sling Neuro: motor grossly intact Psych: appropriate affect Objective Data Active Medications Acetaminophen (Acetaminophen 325 Mg Tablet) 650 mg PO Q6H PRN PRN Reason: Pain, Mild (Pain Scale 1-3), fever or headache Calcium Carbonate (Calcium Carbonate 750 Mg Tab.Chew) 750 mg PO Q4H PRN PRN Reason: Heartburn Magnesium Hydroxide (Milk Of Magnesia 30 Ml Oral.Susp) 30 ml PO DAILY PRN PRN Reason: Constipation Melatonin (Melatonin 3 Mg Tablet) 6 mg PO BEDTIME PRN PRN Reason: Insomnia Last Admin: 03/19/24 01:27 Dose: 6 mg Documented By: ZAY Morphine Sulfate (Morphine Sulfate 2 Mg/Ml Cartridge) 2 mg IVPUSH Q4H PRN; Protocol PRN Reason: Pain, Severe (Pain Scale 7-10) Last Admin: 03/19/24 07:16 Dose: 2 mg Documented By: MAYRA Ondansetron HCl (Ondansetron Hcl 4 Mg/2 Ml Vial) 4 mg IVPUSH Q8H PRN PRN Reason: Nausea and Vomiting Sodium Chloride (0.9 % Sodium Chloride Flush 3 Ml Syringe) 3 ml IVFSH [facility] Last Admin: 03/19/24 09:30 Dose: 3 ml Documented By: MAYRA Labs 03/19/24 05:15 03/19/24 05:15 Labs: Laboratory Results - last 24 hr 03/18/24 03/18/24 03/18/24 19:38 19:45 21:10 MCV 101.0 H D MCH 32.4 MCHC 32.1 RDW 14.3 Plt Count 247 MPV 10.5 Immature Gran % (Auto) 0.4 Neut % (Auto) 78.5 H Lymph % (Auto) 9.9 L Teller % (Auto) 10.7 Eos % (Auto) 0.2 Baso % (Auto) 0.3 Lymph # (Auto) 1.0 L Teller # (Auto) 1.1 Eos # (Auto) 0.0 Baso # (Auto) 0.0 Abs Immat Gran (auto) 0.04 H Absolute Neuts (auto) 8.2 Absolute Nucleated RBC 0.000 Nucleated RBC % (auto) 0.0 Smear Tech's Comments VERIFIED Anion Gap 17 Estim Creat Clear Calc 29.3 Estimated GFR 29 Random Glucose 103 Lactic Acid 2.7 H* Lactic Acid F/U @ 2Hr Calcium 8.5 D Magnesium 2.0 Total Bilirubin 0.5 AST 18 ALT 14 Alkaline Phosphatase 103 Troponin I High Sens 45.8 H D B-Natriuretic Peptide 131 H Total Protein 6.2 L Albumin 3.5 Urine Color Dark Yellow Urine Appearance Cloudy Urine pH 5.0 Ur Specific [place] 1.020 Urine Protein 30 (1+) H Urine Glucose (UA) Negative Urine Ketones Trace Urine Blood Negative Urine Nitrite Negative Ur Leukocyte Esterase Trace H Urine RBC 0-2 Urine WBC 0-5 Ur Squamous Epith Cells 0-2 Calcium Oxalate Crystal Present Urine Bacteria None Seen Hyaline Casts >20 Influenza Type A (PCR) NEGATIVE Influenza Type B (PCR) NEGATIVE RSV RNA Qual (PCR) NEGATIVE SARS-CoV-2 RNA (RT-PCR) NEGATIVE 03/19/24 03/19/24 00:35 05:15 MCV 98.9 H MCH 32.5 MCHC 32.9 RDW 14.3 Plt Count 240 MPV 10.2 Immature Gran % (Auto) 0.2 Neut % (Auto) 66.1 Lymph % (Auto) 16.9 L Teller % (Auto) 15.4 H Eos % (Auto) 1.0 Baso % (Auto) 0.4 Lymph # (Auto) 1.4 Teller # (Auto) 1.2 Eos # (Auto) 0.1 Baso # (Auto) 0.0 Abs Immat Gran (auto) 0.02 Absolute Neuts (auto) 5.3 Absolute Nucleated RBC 0.000 Nucleated RBC % (auto) 0.0 Smear Tech's Comments Anion Gap 16 Estim Creat Clear Calc 36.5 Estimated GFR 38 Random Glucose 78 Lactic Acid Lactic Acid F/U @ 2Hr 1.7 Calcium 8.7 Magnesium Total Bilirubin AST ALT Alkaline Phosphatase Troponin I High Sens B-Natriuretic Peptide Total Protein Albumin Urine Color Urine Appearance Urine pH Ur Specific [place] Urine Protein Urine Glucose (UA) Urine Ketones Urine Blood Urine Nitrite Ur Leukocyte Esterase Urine RBC Urine WBC Ur Squamous Epith Cells Calcium Oxalate Crystal Urine Bacteria Hyaline Casts Influenza Type A (PCR) Influenza Type B (PCR) RSV RNA Qual (PCR) SARS-CoV-2 RNA (RT-PCR) Assessment and Plan (1) Hypotension: Status: Acute (2) Coronary artery disease: Status: Acute (3) Atrial flutter: Status: Acute Plan 79/m CKD stage 3, coronary artery disease, paroxysmal atrial flutter on Eliquis, h/o renal cancer, mood disorder, mixed hyperlipidemia, BPH, hypertension who was sent to the emergency department from 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 Atrial flutter with RVR, RVR resolved. IN SR -resume metoprolol -eliquis for stroke prevention Acute kidney injury on CKD: improving -continue IVF, monitor Cr Acute lactic acidosis due to hypotension. No sepsis Right clavicular fracture due to fall likely in the setting of orthostatic presyncope. Repeat orthostatics in a.m.. Conservative management. Outpt follow up with orthpo Hypertension: Hold lisinopril and furosemide until tomorrow Coronary artery disease: On high-intensity statin and Plavix Mood disorder: Continue home mood stabilizers BPH: On Flomax DVT prophylaxis: Eliquis Full code need for inpt: IVF for CATALINO, and monitoring for AFIB with RVR Quality Stroke Does the patient have a stroke diagnosis?: No VTE Prior VTE?: No VTE Risk Level:: Medical - moderate - high VTE Device Contraindication: Treatment Not Indicated VTE Drug Contraindication: N/A - Med Ordered
[2024-03-19] MEDS: Metoprolol Tartrate 50 MG TABLET PO ×2 (11:21→22:14)
[2024-03-19] MEDS: Docusate Sodium 100 MG CAPSULE PO (11:21)
[2024-03-19] MEDS: Clopidogrel Bisulfate 75 MG TABLET PO (11:22)
[2024-03-19] MEDS: clonazePAM 0.5 MG TABLET PO (11:22)
[2024-03-19] MEDS: QUEtiapine Fumarate 25 MG TABLET PO ×2 (11:22→23:21)
[2024-03-19] MEDS: Tamsulosin HCL 0.4 MG CAPSULE PO (11:22)
[2024-03-19] MEDS: cilostazoL 50 MG TABLET PO ×2 (11:27→23:21)
--- NOTE | 2024-03-19 12:48 | MHC.CM.PN ---
IMM 03/19/24, Pt lives with his girlfriend, he has homemaking services from [facility] 2-3 hrs, once a week. He does not have assistance with personal care, he is able to do independently. HCP discussed, CM to follow up when girlfriend is here, pt. was uncertain if she wants to be named. No DME. PCP is Dr. Pereyra in [place]. Pt.'s car is in lot, DCP: home with services. CM to follow for DC needs.
--- NOTE | 2024-03-19 13:24 | MHC.EDTECH ---
Pt and his visitor are very rude and disrespectful to the ED staff.
--- NOTE | 2024-03-19 19:52 | PC.NURSE ---
this rn assumed care of pt, pt sitting up and eating dinner at this time, no acute distress noted.
--- NOTE | 2024-03-19 20:19 | ECG_ITS ---
Test Reason : TACHY Blood Pressure : / mmHG Vent. Rate : 151 BPM Atrial Rate : 000 BPM P-R Int : 000 ms QRS Dur : 098 ms QT Int : 302 ms P-R-T Axes : 000 -20 145 degrees QTc Int : [address] elevation in high lateral leads Septal infarct , age undetermined Lateral infarct , age undetermined Abnormal ECG When compared with ECG of 18-MAR-2024 18:13, Significant changes have occurred Referred By: Ernestine Hernandez Electronically Signed By:LATOYA JOHNSON MD
--- NOTE | 2024-03-19 20:23 | PC.NURSE ---
as pt was being transported upstairs, pt noted to become tachycardic 150-159. aware, ekg being obtained.
--- NOTE | 2024-03-19 20:32 | PC.NURSE ---
pt not sustaining tachycardia at this time, pt normal sinus 90bpm. pt pressure soft, see vs. provider aware, holding medication.
[2024-03-20] VITALS (12 sets, daily range): BP systolic 82–150; BP diastolic 49–74; PULSE 61–86; RESP 14–20; TEMP 36.6–37.7; O2SAT 92–97
[2024-03-20] MEDS: Morphine Sulfate 2 MG/ML CARTRIDGE IVPUSH ×4 (05:24→20:44)
[2024-03-20 06:34] LABS: Anion Gap 12 (12-20); Blood Urea Nitrogen 22 mg/dL (9-16); Calcium 9.1 mg/dL (8.4-10.2); Carbon Dioxide 23 mmol/L (22-29); Chloride 108 mmol/L (96-108); Creatinine Clr Calc Pharmacy 57.5; Estimated Glomerular Filt Rate > 60; Glucose Random 100 mg/dL (60-115); Potassium 4.2 mmol/L (3.3-5.1); Sodium 139 mmol/L (135-145)
[2024-03-20 07:27] LABS: MANUAL DIFF FLAG NO
[2024-03-20 07:31] LABS: Basophils Percent Auto 0.5 % (0-2); Eosinophils Absolute Auto 0.1 X10*3/uL (0.0-0.4); Eosinophils Percent Auto 1.2 % (0-4); Hemoglobin 11.4 g/dl (14.0-18.0); Imm Gran Abs Auto 0.03 X10*3/uL (0.00-0.03); Imm Gran Pct Auto 0.4 % (0.0-0.4); Lymphocytes Absolute Auto 1.5 X10*3/uL (1.2-4.9); Lymphocytes Percent Auto 17.3 % (20-40); Mean Corpuscular HGB Conc 33.5 g/dl (31.0-36.0); Mean Corpuscular Hemoglobin 32.9 pg (27.0-33.0); Mean Corpuscular Volume 98.3 fL (80.0-98.0); Mean Platelet Volume 10.5 fL (9.4-12.4); Monocytes Absolute Auto 1.1 X10*3/uL (0.1-1.2); Monocytes Percent Auto 13.3 % (2-11); Neutrophils Absolute Auto 5.8 x10*3/uL (2.0-8.3); Neutrophils Percent Auto 67.3 % (45-73); Platelet Count 238 X10*3/uL (160-400); Red Blood Count 3.46 X10*6/uL (4.60-5.80); Red Cell Distribution Width 14.2 % (11.0-16.0); White Blood Count 8.6 X10*3/uL (4.8-10.8)
[2024-03-20] MEDS: cilostazoL 50 MG TABLET PO ×2 (08:08→20:44)
[2024-03-20] MEDS: Tamsulosin HCL 0.4 MG CAPSULE PO (08:08)
[2024-03-20] MEDS: lisinopriL 40 MG TABLET PO (08:08)
[2024-03-20] MEDS: Metoprolol Tartrate 50 MG TABLET PO (08:08)
[2024-03-20] MEDS: QUEtiapine Fumarate 25 MG TABLET PO ×2 (08:08→20:43)
[2024-03-20] MEDS: Clopidogrel Bisulfate 75 MG TABLET PO (08:08)
[2024-03-20] MEDS: Acetaminophen 325 MG TABLET 650 MG PO (08:09)
[2024-03-20] MEDS: Docusate Sodium 100 MG CAPSULE PO (08:09)
[2024-03-20] MEDS: 0.9 % Sodium Chloride Flush 3 ML SYRINGE IVFLUSH ×3 (08:11→20:46)
--- NOTE | 2024-03-20 08:29 | P.DS_ITS ---
DS: Providers Provider Date of Service: 03/21/24 Date of admission: 03/18/24 22:39 Date of discharge: 03/21/24 Primary care physician: Unknown Physician DS: Diagnosis Discharge Diagnosis (1) Hypotension: Status: Resolved (2) Atrial flutter: Status: Resolved DS: Summary Hospital Course Hospital Course: admission hpi Chief Complaint: Tachycardia This is a 79-year-old male with pertinent history of CKD stage 3, coronary artery disease, paroxysmal atrial flutter on Eliquis, mood disorder, mixed hyperlipidemia, BPH, hypertension who was sent to the emergency department from carpenter refrigerator's office for evaluation of tachycardia. Patient states he had a fall with dizziness and lightheadedness while he was standing 1 day prior to presentation. He was seen at its [facility] where imaging revealed clavicular fracture and discharged. Patient went to his carpenter refrigerator's office for evaluation on the day of presentation. His blood pressure was found to be low and he was found to be tachycardic and therefore sent to the ER for further evaluation. He denies vomiting, diarrhea or poor p.o. intake. Is compliant with his home medications. No fever, chills, chest pain, palpitations, shortness of breath, abdominal pain, changes in urinary or bowel habits. In the emergency department, patient was found to be in a flutter with RVR and blood pressure found to be low. Patient was resuscitated with IV fluids with improvement in blood pressure and heart rate. Serum creatinine found to be elevated. hospital course: Alex is a 78-year-old male past medical history of hypertension, hyperlipide zackery, peripheral vascular disease, dilated ascending aorta, coronary artery disease, lad stent, atrial flutter who was recently seen in the [facility] emergency room x2 and the [facility] emergency room x1 for symptoms lightheadedness and he did have a fall resulting in a fractured distal clavicle. At [facility] he tested positive for COVID yesterday. He now presents here for follow-up. Today he reports that he is feeling weak, lightheaded and having pain in his shoulder. He has not had any recurrent falls. He says in the last week he has had problems with diarrhea, food not tasting good, dizziness and weakness. He has not had chest discomfort at rest or with activity. He has no concerning shortness of breath. He is not feeling heart palpitations. He has been sedentary. He is sitting in a wheelchair at this visit. He says he is taking his meds as directed. No bleeding issues reported. His significant other is present and expresses much concern about him Hospital course:. A 79-year-old male with chronic kidney disease (CKD) stage 3, coronary artery disease, paroxysmal atrial flutter on Eliquis, a history of renal cancer, mood disorder, mixed hyperlipidemia, benign prostatic hyperplasia (BPH), and hypertension presented to the emergency department for evaluation of tachycardia and hypotension. He had been seen recently in the emergency departments at [facility] (twice) and [facility] (once) for symptoms of lightheadedness, including a fall that resulted in a right distal clavicle fracture. He currently wears a sling for the injury. At [facility], he tested positive for COVID-19 on 03/17/24, though he remained asymptomatic. On 03/18/24, he followed up with cardiology, reporting ongoing weakness and lightheadedness. His blood pressure at that visit was 74/35, and his pulse was 156, though he denied palpitations. He was sent to the ED, where an ECG revealed supraventricular tachycardia (SVT) with a heart rate of 150 and a blood pressure of 77/53. Both improved with IV fluids and an oral dose of metoprolol (50 mg). Lab results indicated acute kidney injury (CATALINO) with a creatinine level of 2.18, likely due to renal hypoperfusion from hypotension. Following IV fluid administration and withholding lisinopril, his creatinine normalized to 1.1. Lisinopril was discontinued to prevent recurrence. Hypotension was deemed medication-induced, contributing to the patient?s dizziness and fall, which resulted in the clavicle fracture. The clavicular injury was evaluated at [facility], and outpatient follow-up is advised. The patient no longer reports dizziness, and his blood pressure has stabilized. Tachycardia was likely a reflex response to hypotension. He is now in sinus rhythm and will continue metoprolol at 50 mg twice daily alongside anticoagulation therapy with Eliquis. Coronary artery disease: On high-intensity statin and Plavix Mood disorder: Continue home mood stabilizers BPH: On Flomax Time Attestation Discharge Coordination Time (in mins): 40 Quality: Safe Use of Opioids Does Pt have an Active Cancer Diagnosis on the Problem List?: No Quality: Stroke Does the patient have a stroke diagnosis?: No Physical Exam Vital Signs: Vital Signs: Last Vital Signs Temp 97.9 F 03/20/24 07:51 Pulse 76 03/20/24 08:08 Resp 16 03/20/24 07:51 BP 136/58 L 03/20/24 08:08 Pulse Ox 94 03/20/24 07:51 O2 Del Method Room Air 03/20/24 07:51 BMI result Body Mass Index 25.1 Const: Other: General: AO X 3, no acute distress Resp: CTA bilateral CVS: S1,S2,RRR GI: +BS, NT, no distention Skin: No rash MSK; right arm slig, and smal old hemaotoma of left lower leg Neuro: motor grossly intact Psych: appropriate affect DS: Data Data Completed and Pending Labs on day of discharge: Laboratory Results - last 24 hr 03/20/24 05:55 WBC 8.6 RBC 3.46 L Hgb 11.4 L Hct 34.0 L MCV 98.3 H MCH 32.9 MCHC 33.5 RDW 14.2 Plt Count 238 MPV 10.5 Immature Gran % (Auto) 0.4 Neut % (Auto) 67.3 Lymph % (Auto) 17.3 L [place] % (Auto) 13.3 H Eos % (Auto) 1.2 Baso % (Auto) 0.5 Lymph # (Auto) 1.5 [place] # (Auto) 1.1 Eos # (Auto) 0.1 Baso # (Auto) 0.0 Abs Immat Gran (auto) 0.03 Absolute Neuts (auto) 5.8 Absolute Nucleated RBC 0.000 Nucleated RBC % (auto) 0.0 Hold Purple Top SEE NOTE Sodium 139 Potassium 4.2 Chloride 108 Carbon Dioxide 23 Anion Gap 12 BUN 22 H Creatinine 1.11 Estim Creat Clear Calc 57.5 Estimated GFR > 60 Random Glucose 100 Calcium 9.1 Preliminary micro results at discharge 03/18/24 19:21 Blood Culture - Preliminary Blood - Venous No growth after 24 hours. 03/18/24 19:38 Blood Culture - Preliminary Blood - Venous No growth after 24 hours. Discharge Plan Discharge Anticipated Discharge Date/Time: 03/20/24 08:29 Patient Disposition: Home Health Service Discharge Diagnosis: Atrial flutter with RVR, CATALINO, Referrals: [facility] [Outside] - 1 Week Physician,Unknown J [Physician] - 1 Week Discharge Medications: New metoprolol tartrate 25 mg Tablet 25 mg PO BID Qty: 180 0RF Protocol: Hold for SBP/HR < HOLD for SBP < : 90 HOLD for HR < : 60 Multaq 400 mg Tablet 400 mg PO BID Qty: 180 0RF Continued cilostazol 50 mg tablet 50 mg PO BID atorvastatin 80 mg tablet 80 mg PO DAILY Eliquis 5 mg tablet 5 mg PO BID sertraline 50 mg tablet 50 mg PO DAILY dextroamphetamine-amphetamine 7.5 mg tablet 1 tab PO DAILY morphine 15 mg tablet 15 mg PO Q4H PRN (Reason: Pain (Scale Score 7-10)) gabapentin 100 mg capsule 100 - 300 mg PO BEDTIME PRN (Reason: Pain (Scale Score 1-3)) docusate sodium 100 mg capsule 100 mg PO DAILY quetiapine 25 mg tablet 25 mg PO BID clonazepam 0.5 mg tablet 0.5 mg PO BID tamsulosin 0.4 mg capsule 0.4 mg PO DAILY Discontinued furosemide 40 mg tablet 40 mg PO DAILY clopidogrel 75 mg tablet 75 mg PO DAILY lisinopril 40 mg tablet 40 mg PO DAILY metoprolol tartrate 50 mg tablet 50 mg PO BID Discharge Orders: Discharge Order (Routine); Ordered 03/21/24 Ordered By: Anthony Galvan Diet: Advance to usual diet Activity on Discharge: As tolerated Stand Alone Forms: Patient Portal Discharge page Print Language: Amharic Care Plan Goals: Recovery from atrial fibrillation with rapid ventricular response Recovery from acute kidney injury and hypotension Health Concerns: Atrial flutter with RVR Acute kidney injury Hypotension Plan of Treatment: Take medications as recommended above Stop taking lisinopril and lasix until reevaluated by your doctor metoprolol dose has been reduced to 25 mg twice daily stop taking Plavix take Multaq 400 mg twice daily Follow-up with your heart doctor Follow-up with your primary care doctor You will have visiting nurse check up on you at home follow up with orthopeduc service as previously scheduled Assessment: See above Discharge Date/Time: 03/21/24 17:30
--- NOTE | 2024-03-20 09:33 | P.PNIM_ITS ---
Subjective Subjective Date of Service: 03/20/24 Interval History: F/u on tachycardia, CATALINO and Hypotension. Hypotension resolved, renal failure resolved. Had episode of SVT (150) last night and self terminated Physical Exam 2 Vital Signs: Vital Signs: Last Vital Signs Temp 97.9 F 03/20/24 07:51 Pulse 76 03/20/24 09:18 Resp 16 03/20/24 07:51 BP 136/58 L 03/20/24 09:18 Pulse Ox 94 03/20/24 07:51 O2 Del Method Room Air 03/20/24 07:51 BMI result Body Mass Index 25.1 Const: Other: General: AO X 3, no acute distress Resp: CTA bilateral CVS: S1,S2,RRR GI: +BS, NT, no distention Skin: No rash MSK; right arm slig, and smal old hemaotoma of left lower leg Neuro: motor grossly intact Psych: appropriate affect Objective Data Active Medications Acetaminophen (Acetaminophen 325 Mg Tablet) 650 mg PO Q6H PRN PRN Reason: Pain, Mild (Pain Scale 1-3), fever or headache Last Admin: 03/20/24 08:09 Dose: 650 mg Documented By: FELIX Apixaban (Apixaban 5 Mg Tablet) 5 mg PO BID [facility] Calcium Carbonate (Calcium Carbonate 750 Mg Tab.Chew) 750 mg PO Q4H PRN PRN Reason: Heartburn Cilostazol (Cilostazol 50 Mg Tablet) 50 mg PO BID [facility] Last Admin: 03/20/24 08:08 Dose: 50 mg Documented By: FELIX Clonazepam (Clonazepam 0.5 Mg Tablet) 0.5 mg PO BID PRN PRN Reason: Anxiety Last Admin: 03/19/24 11:22 Dose: 0.5 mg Documented By: MAYRA Clopidogrel Bisulfate (Clopidogrel Bisulfate 75 Mg Tablet) 75 mg PO DAILY [facility] Last Admin: 03/20/24 08:08 Dose: 75 mg Documented By: FELIX Docusate Sodium (Docusate Sodium 100 Mg Capsule) 100 mg PO DAILY [facility] Last Admin: 03/20/24 08:09 Dose: 100 mg Documented By: FELIX Gabapentin (Gabapentin 100 Mg Capsule) 100 mg PO BEDTIME PRN PRN Reason: Pain (Scale Score 1-3) Magnesium Hydroxide (Milk Of Magnesia 30 Ml Oral.Susp) 30 ml PO DAILY PRN PRN Reason: Constipation Melatonin (Melatonin 3 Mg Tablet) 6 mg PO BEDTIME PRN PRN Reason: Insomnia Last Admin: 03/19/24 01:27 Dose: 6 mg Documented By: ZAY Metoprolol Tartrate (Metoprolol Tartrate 50 Mg Tablet) 50 mg PO BID [facility]; Protocol Last Admin: 03/20/24 08:08 Dose: 50 mg Documented By: FELIX Morphine Sulfate (Morphine Sulfate 2 Mg/Ml Cartridge) 2 mg IVPUSH Q4H PRN; Protocol PRN Reason: Pain, Severe (Pain Scale 7-10) Last Admin: 03/20/24 05:24 Dose: 2 mg Documented By: JOSE ANGEL Non-Formulary Medication (Dextroamphetamine-Amphetamine) 1 tab PO DAILY [facility] Ondansetron HCl (Ondansetron Hcl 4 Mg/2 Ml Vial) 4 mg IVPUSH Q8H PRN PRN Reason: Nausea and Vomiting Quetiapine Fumarate (Quetiapine Fumarate 25 Mg Tablet) 25 mg PO BID [facility] Last Admin: 03/20/24 08:08 Dose: 25 mg Documented By: FELIX Sodium Chloride (0.9 % Sodium Chloride Flush 3 Ml Syringe) 3 ml IVFLUSH QSHIFT [facility] Last Admin: 03/20/24 08:11 Dose: 3 ml Documented By: FELIX Tamsulosin HCl (Tamsulosin Hcl 0.4 Mg Capsule) 0.4 mg PO DAILY [facility] Last Admin: 03/20/24 08:08 Dose: 0.4 mg Documented By: FELIX Labs 03/20/24 05:55 03/20/24 05:55 Labs: Laboratory Results - last 24 hr 03/20/24 05:55 MCV 98.3 H MCH 32.9 MCHC 33.5 RDW 14.2 Plt Count 238 MPV 10.5 Immature Gran % (Auto) 0.4 Neut % (Auto) 67.3 Lymph % (Auto) 17.3 L Leon % (Auto) 13.3 H Eos % (Auto) 1.2 Baso % (Auto) 0.5 Lymph # (Auto) 1.5 Leon # (Auto) 1.1 Eos # (Auto) 0.1 Baso # (Auto) 0.0 Abs Immat Gran (auto) 0.03 Absolute Neuts (auto) 5.8 Absolute Nucleated RBC 0.000 Nucleated RBC % (auto) 0.0 Hold Purple Top SEE NOTE Anion Gap 12 Estim Creat Clear Calc 57.5 Estimated GFR > 60 Random Glucose 100 Calcium 9.1 Microbiology Microbiology Results: Microbiology 03/18/24 19:21 Blood Culture - Preliminary Blood - Venous No growth after 24 hours. 03/18/24 19:38 Blood Culture - Preliminary Blood - Venous No growth after 24 hours. Assessment and Plan (1) Hypotension: Status: Acute (2) Coronary artery disease: Status: Acute (3) Atrial flutter: Status: Acute Plan A 79-year-old male with chronic kidney disease (CKD) stage 3, coronary artery disease, paroxysmal atrial flutter on Eliquis, a history of renal cancer, mood disorder, mixed hyperlipidemia, benign prostatic hyperplasia (BPH), and hypertension presented to the emergency department for evaluation of tachycardia and hypotension. He had been seen recently in the emergency departments at [facility] (twice) and [facility] (once) for symptoms of lightheadedness, including a fall that resulted in a right distal clavicle fracture. He currently wears a sling for the injury. At [facility], he tested positive for COVID-19 on 03/17/24, though he remained asymptomatic. On 03/18/24, he followed up with cardiology, reporting ongoing weakness and lightheadedness. His blood pressure at that visit was 74/35, and his pulse was 156, though he denied palpitations. He was sent to the ED, where an ECG revealed supraventricular tachycardia (SVT) with a heart rate of 150 and a blood pressure of 77/53. Both improved with IV fluids and an oral dose of metoprolol (50 mg). Lab results indicated acute kidney injury (CATALINO) with a creatinine level of 2.18, likely due to renal hypoperfusion from hypotension. Following IV fluid administration and withholding lisinopril, his creatinine has normalized to 1.1. Lisinopril was discontinued to prevent recurrence. Hypotension was deemed medication-induced, contributing to the patient?s dizziness and fall, which resulted in the clavicle fracture. The clavicular injury was evaluated at [facility], and outpatient follow-up is advised. The patient no longer reports dizziness, and his blood pressure has stabilized. Tachycardia due to SVT and to be reviewed by cardiology for further management Intermittent SVT--continue metoprolol -cardiology eval, may need antiarythmic PAF--presently in sinus -continue metoprolol -eliquis for stroke prevention Acute kidney injury on CKD, due to renal hypoperfusion from hypotension and lisinopril, resolved Acute lactic acidosis due to hypotension. No sepsis, resolved Right clavicular fracture due to fall likely in the setting of orthostatic hypotension from orthostatic bp and outpatient follow up with ortho Hypertension: hold lisinopril and Lasix Coronary artery disease: On high-intensity statin and Plavix Mood disorder: Continue home mood stabilizers BPH: On Flomax DVT prophylaxis: Eliquis Full code need for inpt: IVF for CATALINO, and monitoring for AFIB with RVR Quality Stroke Does the patient have a stroke diagnosis?: No VTE Prior VTE?: No VTE Risk Level:: Medical - moderate - high VTE Device Contraindication: Treatment Not Indicated VTE Drug Contraindication: N/A - Med Ordered
[2024-03-20] MEDS: Apixaban 5 MG TABLET PO ×2 (10:14→20:46)
[2024-03-20] MEDS: Dronedarone HCl 400 MG TABLET PO ×2 (12:51→20:44)
[2024-03-20] MEDS: Lactated Ringers 1,000 ML 100 ML IVCONT ×2 (12:51→22:40)
--- NOTE | 2024-03-20 12:56 | P.CONCA_ITS ---
History of Present Illness History of Present Illness Date of Service: 03/20/24 Requesting physician: [facility] Consult reason: hypotension and other (SVT) Chief complaint: Tachycardia Narrative: I was consulted to see Alex in cardiology consultation today for low blood pressure as well as recurrent supraventricular tachycardia. Patient 79-year-old male with prior history of paroxysmal atrial fibrillation, CAD status post LAD stent in May 2022, hypertension, neuropathy, peripheral vascular disease, ascending aortic enlargement presented to the office couple of days ago with not feeling well. Patient in the last we can half has had recurrent palpitation presented emergency room with tachycardia diagnose with possible atrial fibrillation flutter. He had 1 episode of falling down the cellar stairs after he got lightheaded and lost his balance. He had a fracture of his right clavicle. He was then seen at [facility] then subsequently discharged home. Came for a follow-up visit here and was noted to be in rapid heart rate with systolic blood pressure in the 70s not feeling well. Patient was then referred to the emergency room right away. In the emergency room immediately received IV fluids and EKG was consistent with SVT of AVNRT type. He was treated. Converted to sinus rhythm and was admitted with IV fluids. Blood pressure improved. He was then planned to be discharged however subsequently had an episode of SVT with EKG showing ST-elevation high lateral leads. He had no symptoms during that time. High this morning his blood pressure in the 80s. He says he feels well. However he does have lightheadedness. He was diagnose with positive COVID at [facility] however testing of COVID here as negative. Patient has been taking oral anticoagulation as well as Plavix as well as cilostazol. No significant anemia. No bleeding diatheses. Review of Systems 2 Constitutional: Constitutional: Reports no additional constitutional complaints Eyes: Eyes: Reports no additional eye complaints Cardiovascular: Cardiovascular: Denies chest pain, Reports rapid heart rate, Reports lightheadedness, Reports Loss of Consciousness and Denies dyspnea Respiratory: Respiratory: Denies dyspnea Gastrointestinal: Gastrointestinal: Reports no additional gastrointestinal complaints Musculoskeletal: Musculoskeletal: Reports other (Right clavicular pain) Integumentary/Breasts: Skin/Breast: Reports system reviewed and no additional complaints, except as docu Neurologic: Reports system reviewed and no additional complaints, except as documented Endocrine: Endocrine: Reports no additional endocrine complaints COUNT INCLUDES THE [facility] Past Medical History Medical History Hypersomnia Snoring Neuropathy Atherosclerotic cardiovascular disease History of alcohol abuse History of COVID-19 On beta jose at home COPD (chronic obstructive pulmonary disease) On anticoagulant therapy History of atrial fibrillation PVD (peripheral vascular disease) Renal cell carcinoma Hypertension Depression Anxiety Diverticulitis Surgical History Surgical History H/O cardiac catheterization History of colectomy S/P femoral-femoral bypass surgery Social History Social History Household Members: Significant Other Housing: House Do you presently have visiting nurse or other home services: No Alcohol intake: never Patient Tobacco Use Status: Former Tobacco user Tobacco use type: Cigarette Substance Use Type: Marijuana Advance Directives Date on File: 06/09/21 service: Yes Current occupational status: retired [employer] Allergies Allergy/AdvReac Type Severity Reaction Status Date / Time No Known Allergies Allergy Verified 03/18/24 16:01 [No Known Allergies*] Active Medications: Current Medications Acetaminophen (Acetaminophen 325 Mg Tablet) 650 mg PO Q6H PRN PRN Reason: Pain, Mild (Pain Scale 1-3), fever or headache Last Admin: 03/20/24 08:09 Dose: 650 mg Apixaban (Apixaban 5 Mg Tablet) 5 mg PO BID [facility] Last Admin: 03/20/24 10:14 Dose: 5 mg Calcium Carbonate (Calcium Carbonate 750 Mg Tab.Chew) 750 mg PO Q4H PRN PRN Reason: Heartburn Cilostazol (Cilostazol 50 Mg Tablet) 50 mg PO BID [facility] Last Admin: 03/20/24 08:08 Dose: 50 mg Clonazepam (Clonazepam 0.5 Mg Tablet) 0.5 mg PO BID PRN PRN Reason: Anxiety Last Admin: 03/19/24 11:22 Dose: 0.5 mg Clopidogrel Bisulfate (Clopidogrel Bisulfate 75 Mg Tablet) 75 mg PO DAILY [facility] Last Admin: 03/20/24 08:08 Dose: 75 mg Docusate Sodium (Docusate Sodium 100 Mg Capsule) 100 mg PO DAILY [facility] Last Admin: 03/20/24 08:09 Dose: 100 mg Dronedarone (Dronedarone Hcl 400 Mg Tablet) 400 mg PO BID [facility] Last Admin: 03/20/24 12:51 Dose: 400 mg Gabapentin (Gabapentin 100 Mg Capsule) 100 mg PO BEDTIME PRN PRN Reason: Pain (Scale Score 1-3) Lactated Ringer's (Lr) 1,000 mls @ 100 mls/hr IVCONT .Q10H [facility] Last Admin: 03/20/24 12:51 Dose: 100 mls/hr Magnesium Hydroxide (Milk Of Magnesia 30 Ml Oral.Susp) 30 ml PO DAILY PRN PRN Reason: Constipation Melatonin (Melatonin 3 Mg Tablet) 6 mg PO BEDTIME PRN PRN Reason: Insomnia Last Admin: 03/19/24 01:27 Dose: 6 mg Metoprolol Tartrate (Metoprolol Tartrate 25 Mg Tablet) 25 mg PO BID [facility]; Protocol Morphine Sulfate (Morphine Sulfate 2 Mg/Ml Cartridge) 2 mg IVPUSH Q4H PRN; Protocol PRN Reason: Pain, Severe (Pain Scale 7-10) Last Admin: 03/20/24 10:14 Dose: 2 mg Non-Formulary Medication (Dextroamphetamine-Amphetamine) 1 tab PO DAILY [facility] Ondansetron HCl (Ondansetron Hcl 4 Mg/2 Ml Vial) 4 mg IVPUSH Q8H PRN PRN Reason: Nausea and Vomiting Quetiapine Fumarate (Quetiapine Fumarate 25 Mg Tablet) 25 mg PO BID [facility] Last Admin: 03/20/24 08:08 Dose: 25 mg Sodium Chloride (0.9 % Sodium Chloride Flush 3 Ml Syringe) [facility] Last Admin: 03/20/24 08:11 Dose: 3 ml Tamsulosin HCl (Tamsulosin Hcl 0.4 Mg Capsule) 0.4 mg PO DAILY [facility] Last Admin: 03/20/24 08:08 Dose: 0.4 mg Home Medications ?Medication ?Instructions ?Recorded ?Confirmed ?Last Taken ?Type docusate sodium 100 mg capsule 100 mg PO DAILY 08/17/21 03/18/24 Unknown History apixaban 5 mg tablet (Eliquis) 5 mg PO BID 01/27/22 03/18/24 05/27/22 History atorvastatin 80 mg tablet 80 mg PO DAILY 01/27/22 03/18/24 Unknown History furosemide 40 mg tablet 40 mg PO DAILY 01/27/22 03/18/24 Unknown History sertraline 50 mg tablet 50 mg PO DAILY 07/06/22 03/18/24 Unknown History metoprolol tartrate 50 mg tablet 50 mg PO BID 10/24/22 03/18/24 Unknown History quetiapine 25 mg tablet 25 mg PO BID 12/28/22 03/18/24 Unknown History tamsulosin 0.4 mg capsule 0.4 mg PO DAILY 03/07/23 03/18/24 Unknown History cilostazol 50 mg tablet 50 mg PO BID 03/27/23 03/18/24 Unknown History clonazepam 0.5 mg tablet 0.5 mg PO BID Anxiety 11/15/23 03/18/24 Unknown History clopidogrel 75 mg tablet 75 mg PO DAILY 03/18/24 03/18/24 Unknown History dextroamphetamine-amphetamine 7.5 1 tab PO DAILY 03/18/24 03/18/24 Unknown History mg tablet gabapentin 100 mg capsule 100 - 300 mg PO BEDTIME PRN Pain 03/18/24 03/18/24 Unknown History (Scale Score 1-3) lisinopril 40 mg tablet 40 mg PO DAILY 03/18/24 03/18/24 Unknown History morphine 15 mg immediate release 15 mg PO Q4H PRN Pain (Scale Score 03/18/24 Unknown History tablet 7-10) Physical Exam 2 Vital Signs: Vital Signs: Last Vital Signs Temp 99.0 F 03/20/24 11:56 Pulse 63 03/20/24 11:56 Resp 18 03/20/24 11:56 BP 100/55 L 03/20/24 11:56 Pulse Ox 92 03/20/24 11:56 O2 Del Method Room Air 03/20/24 11:56 BMI result Body Mass Index 25.1 Const: General: cooperative, comfortable, no acute distress, well developed, alert, awake and Physically active Nutritional Appearance: average body habitus and well nourished Orientation/consciousness: patient oriented x3 Limitations: no limitations HEENT: Head: Yes normocephalic and Yes atraumatic Neck: Neck: Yes trachea midline, Yes supple and Yes no JVD Resp: Effort & Inspection: normal respiratory effort Auscultation: clear to auscultation bilaterally Cardio: Jugular venous distension: no JVD Palpation: normal PMI Rate: r egular rate Rhythm: regular rhythm Heart sounds: S1 normal heart sound present, S2 normal heart sound present, no click, no gallops and no murmurs GI: Auscultation: normal bowel sounds Skin: General skin exam: no rashes or lesions noted Neuro: General: patient oriented x3 and no focal motor deficits Extrem: General: Yes no clubbing, cyanosis or edema Psych: Appearance: grossly normal Objective Labs and Meds 03/20/24 05:55 03/20/24 05:55 Lab results: Laboratory Results - last 24 hr 03/20/24 05:55 WBC 8.6 RBC 3.46 L Hgb 11.4 L Hct 34.0 L MCV 98.3 H MCH 32.9 MCHC 33.5 RDW 14.2 Plt Count 238 MPV 10.5 Immature Gran % (Auto) 0.4 Neut % (Auto) 67.3 Lymph % (Auto) 17.3 L Liberty % (Auto) 13.3 H Eos % (Auto) 1.2 Baso % (Auto) 0.5 Lymph # (Auto) 1.5 [place] # (Auto) 1.1 Eos # (Auto) 0.1 Baso # (Auto) 0.0 Abs Immat Gran (auto) 0.03 Absolute Neuts (auto) 5.8 Absolute Nucleated RBC 0.000 Nucleated RBC % (auto) 0.0 Hold Purple Top SEE NOTE Sodium 139 Potassium 4.2 Chloride 108 Carbon Dioxide 23 Anion Gap 12 BUN 22 H Creatinine 1.11 Estim Creat Clear Calc 57.5 Estimated GFR > 60 Random Glucose 100 Calcium 9.1 EKG consistent with SVT most likely of AVNRT type with subsequent EKG showing ST-elevation high lateral lead with known prior diagonal occlusion Assessment and Plan (1) Hypotension: Status: Acute Patient with hypotension of unclear etiology. Not correlating with SVT. Although this probably would not help. Can not uptitrate medications with metoprolol given his low blood pressure. Question recurrent hypotension possibly related to autonomic dysfunction. Will need aggressive hydration at this point time. Blood pressure remains low may need therapy with midodrine. He already had multiple falls and had a fall with clavicular fracture which is concerning. Closely follow. Will hydrate him with 100 cc an hour for the next 24 hours and monitor blood pressure closely. Follow orthostatic vital signs. If blood pressure remains low may need therapy with midodrine. Meanwhile with reduce metoprolol to 25 mg b.i.d.. (2) SVT (supraventricular tachycardia): Status: Acute Recurrent supraventricular tachycardia with EKG changes suggestive of ischemia in the diagonal territory. Needs suppression. Can not maximize metoprolol therapy given his low blood pressure. Will add Multaq 400 mg b.i.d. to his regimen to suppress atrial arrhythmias as well as to reduce risk of SVT. Will follow clinically. Repeat 12 lead EKG tomorrow. If SVT remained suppressed plan to discharge home tomorrow with follow-up as outpatient. Continue Eliquis therapy given his prior atrial fibrillation. Discontinue Plavix therapy to reduce bleeding risk given that his stenting is more than a year old. Will follow with him. Procedures Date of Service Date of Service: 03/20/24
[2024-03-20] MEDS: clonazePAM 0.5 MG TABLET PO (17:20)
[2024-03-20] MEDS: Metoprolol Tartrate 25 MG TABLET PO (20:46)
[2024-03-20] MEDS: Morphine Sulfate 2 MG/ML CARTRIDGE 4 MG IVPUSH (22:41)
[2024-03-21] VITALS (8 sets, daily range): BP systolic 116–140; BP diastolic 56–66; PULSE 63–84; RESP 14–18; TEMP 37.2–37.5; O2SAT 93–97
[2024-03-21 07:21] LABS: Anion Gap 12 (12-20); Blood Urea Nitrogen 21 mg/dL (9-16); Calcium 9.4 mg/dL (8.4-10.2); Carbon Dioxide 22 mmol/L (22-29); Chloride 108 mmol/L (96-108); Estimated Glomerular Filt Rate > 60; Glucose Random 99 mg/dL (60-115); Potassium 4.3 mmol/L (3.3-5.1); Sodium 138 mmol/L (135-145)
[2024-03-21] MEDS: Morphine Sulfate 2 MG/ML CARTRIDGE 4 MG IVPUSH ×2 (08:38→13:41)
[2024-03-21] MEDS: Tamsulosin HCL 0.4 MG CAPSULE PO (08:39)
[2024-03-21] MEDS: Docusate Sodium 100 MG CAPSULE PO (08:40)
[2024-03-21] MEDS: Dronedarone HCl 400 MG TABLET PO (08:40)
[2024-03-21] MEDS: QUEtiapine Fumarate 25 MG TABLET PO (08:40)
[2024-03-21] MEDS: Metoprolol Tartrate 25 MG TABLET PO (08:40)
[2024-03-21] MEDS: Apixaban 5 MG TABLET PO (08:40)
[2024-03-21] MEDS: Clopidogrel Bisulfate 75 MG TABLET PO (08:40)
[2024-03-21] MEDS: 0.9 % Sodium Chloride Flush 3 ML SYRINGE IVFLUSH (08:41)
[2024-03-21] MEDS: cilostazoL 50 MG TABLET PO (08:43)
[2024-03-21] MEDS: Lactated Ringers 1,000 ML 100 ML IVCONT (09:30)
--- NOTE | 2024-03-21 10:13 | PM.PNCARD ---
Subjective Subjective Date of Service: 03/21/24 Principal diagnosis: Low blood pressure, SVT Interval history: Patient another episode of SVT that lasted 5 minutes but had no symptoms related during that time. No blood pressure issues. Blood pressures improved with IV fluids and reduction metoprolol. Review of Systems Constitutional: Reports no additional constitutional complaints Cardiovascular: Reports no additional cardiovascular complaints Respiratory: Reports no additional respiratory complaints Musculoskeletal: Reports other (Pain at right clavicular side) Reports system reviewed and no additional complaints, except as documented Physical Exam Vital Signs: Last Vital Signs Temp 98.9 F 03/21/24 07:45 Pulse 84 03/21/24 08:53 Resp 16 03/21/24 07:45 BP 116/57 L 03/21/24 08:53 Pulse Ox 95 03/21/24 08:33 O2 Del Method Room Air 03/21/24 07:45 BMI result Body Mass Index 25.1 Const General: cooperative, comfortable, no acute distress, well developed, alert, awake and Physically active Nutritional Appearance: average body habitus and well nourished Orientation/consciousness: patient oriented x3 Limitations: no limitations HEENT Head: Yes normocephalic and Yes atraumatic Neck Neck: Yes trachea midline, Yes supple and Yes no JVD Resp Effort & Inspection: normal respiratory effort Auscultation: clear to auscultation bilaterally Cardio Jugular venous distension: no JVD Palpation: normal PMI Rate: regular rate Rhythm: regular rhythm Heart sounds: S1 normal heart sound present, S2 normal heart sound present, no click, no gallops and no murmurs GI Auscultation: normal bowel sounds Skin General skin exam: no rashes or lesions noted Neuro General: patient oriented x3 and no focal motor deficits Extrem General: Yes no clubbing, cyanosis or edema Psych Appearance: grossly normal Objective Labs and Meds 03/20/24 05:55 03/21/24 06:34 Lab results: Laboratory Results - last 24 hr 03/21/24 06:34 Sodium 138 Potassium 4.3 Chloride 108 Carbon Dioxide 22 Anion Gap 12 BUN 21 H Creatinine 1.10 Estim Creat Clear Calc 58.0 Estimated GFR > 60 Random Glucose 99 Calcium 9.4 Progress Note: A&P Assessment and plan (1) Labile blood pressure: Status: Acute Assessment and Plan: Patient with syncope and recent multiple falls with hypotension. This could be triggered by his poor oral intake. However he probably has tendency for dysautonomia syndrome with hypertension at 1 side and orthostatic hypotension has other side. Metoprolol was reduced. He has responded to IV fluids. His lisinopril was on hold. He is advised to monitor blood pressure closely at home. Had long discussion about orthostatic precautions and maintaining adequate oral hydration to prevent recurrent orthostatic hypotension and falls and syncope. I do not think his SVT is causing his symptoms of orthostatic hypotension at this point in time. However this needs to be suppressed. (2) SVT (supraventricular tachycardia): Status: Acute Assessment and Plan: SVT, continue with metoprolol current dose and Multaq. Will set him up for outpatient event monitor for 30 days. Continues to have recurrent episodes of SVT that are symptomatic may require ablation. With prior history of atrial fibrillation, continue oral anticoagulation therapy. Will sign of the case and follow-up as outpatient. Thank you for allowing me to partake in his care Time Spent With Patient Time: Total time managing care of this patient today ____ minutes. Progress Note: Quality Stroke Does the patient have a stroke diagnosis?: No Procedures Date of Service Date of Service: 03/21/24
--- NOTE | 2024-03-21 11:08 | MHC.CM.PN ---
CM met with pt and his friend, she does not live with him or take care of him. She lives at [facility]. She is currently visiting through [facility]. CM discussed STR with pt. He adamantly refused to go. Referrals out for VNA services, friend to transport home at [place].
[2024-03-21] MEDS: clonazePAM 0.5 MG TABLET PO (13:41)
--- NOTE | 2024-03-21 15:25 | MHC.CM.PN ---
Pt has been medically cleared for DC. [facility] will go home via private transport [facility]
--- NOTE | 2024-03-22 09:27 | W.MHC.F2F ---
Service Date Service Date: 03/22/24 Encounter Date of encounter: 03/21/24 Reasons for Services Signs and symptoms assessed: falls, dizzines and fluctuating blood pressure Reason for half-way: medication management and teach disease management Reason for physical therapy: therapeutic exercises and restore joint function Reason for occupational therapy: therapeutic exercises and restore joint function Homebound: Leaving the home is medically contraindicated at this time without the asist of a device and/or another person due th the listed conditions above and below. Reason homebound: fall risk related to blood pressure changes Homebound supporting statement: homebound due to fall risks, fluctuating blood pressure, broken shoulder and therefore needs the assistance of another person Certification: Based on the above findings, I certify that this patient is confined to the home and needs intermittent half-way care, physical therapy and/or speech therapy, or continues to need occupational therapy. The patient is under my care, and I have initiated the establishment of the plan of care. The patient will be followed by a physician who will periodically review the plan of care. Time Spent With Patient Time: Total time managing care of this patient today ____ minutes.
== END 2024-03-21 17:30 | disposition home health service (06) | DRG 312 ==
LOC: HO.ED 21:12 → HO.EDOVER 22:46 → HO.IMC 03-19 19:14
PROVIDERS: Physician Assistant; Admitting Provider Student in an Organized Health Care Education/Training Program; Emergency Provider Emergency Medicine Emergency Medical Services; PCP Internal Medicine; Visit Provider Internal Medicine
DX: I95.2 Hypotension due to drugs (principal); I47.19 Other supraventricular tachycardia; I48.92 Unspecified atrial flutter; I25.10 Atherosclerotic heart disease of native coronary artery without angina pectoris; S42.001A Fracture of unspecified part of right clavicle, initial encounter for closed fracture; W19.XXXA Unspecified fall, initial encounter; G90.9 Disorder of the autonomic nervous system, unspecified; J44.9 Chronic obstructive pulmonary disease, unspecified; I73.9 Peripheral vascular disease, unspecified; N18.30 Chronic kidney disease, stage 3 unspecified; E78.2 Mixed hyperlipidemia; F39 Unspecified mood [affective] disorder; N40.0 Benign prostatic hyperplasia without lower urinary tract symptoms; Z85.528 Personal history of other malignant neoplasm of kidney; I12.9 Hypertensive chronic kidney disease with stage 1 through stage 4 chronic kidney disease, or unspecified chronic kidney disease; Z20.822 Contact with and (suspected) exposure to COVID-19; Z87.891 Personal history of nicotine dependence; Z79.01 Long term (current) use of anticoagulants; Z79.899 Other long term (current) drug therapy
CPT/HCPCS: 0241U; 36415; 70450; 71250; 72125; 74176; 80048; 80053; 81001; 83605; 83735; 83880; 84484; 85025; 87040; 93005; 97162; 97166; 97530; 99285; J0696; J2270; J7120

== ENCOUNTER 2024-03-18 22:39 | Outpatient (BNV) | payer MEDICARE, SELFPAY | END 2024-03-19 20:19 | PROVIDERS: Admitting Provider Student in an Organized Health Care Education/Training Program; Emergency Provider Emergency Medicine Emergency Medical Services; Visit Provider Internal Medicine Cardiovascular Disease | DX: I47.10 Supraventricular tachycardia, unspecified (principal) | CPT/HCPCS: 93010 ==

== ENCOUNTER → 2024-03-18 22:39 | Outpatient (BNV) | payer MEDICARE, SELFPAY | PROVIDERS: Admitting Provider Student in an Organized Health Care Education/Training Program; Emergency Provider Emergency Medicine Emergency Medical Services; Visit Provider Internal Medicine Cardiovascular Disease | DX: R09.89 Other specified symptoms and signs involving the circulatory and respiratory systems (principal); I47.10 Supraventricular tachycardia, unspecified | CPT/HCPCS: 99222; 99233 ==

== ENCOUNTER → 2024-03-18 22:39 | Outpatient (BNV) | payer MEDICARE, SELFPAY | PROVIDERS: Admitting Provider Student in an Organized Health Care Education/Training Program; Emergency Provider Emergency Medicine Emergency Medical Services; Visit Provider Student in an Organized Health Care Education/Training Program | DX: I95.9 Hypotension, unspecified (principal); I25.10 Atherosclerotic heart disease of native coronary artery without angina pectoris; I48.92 Unspecified atrial flutter | CPT/HCPCS: 99223; 99232; 99239; G0180 ==

== ENCOUNTER 2024-03-27 10:59 | Outpatient (REF) | payer MEDICARE, SELFPAY ==
[2024-03-27 14:35] LABS: Anion Gap 16 (12-20); Blood Urea Nitrogen 21 mg/dL (9-16); Calcium 9.4 mg/dL (8.4-10.2); Carbon Dioxide 21 mmol/L (22-29); Chloride 109 mmol/L (96-108); Estimated Glomerular Filt Rate 56; Glucose Random 83 mg/dL (60-115); Potassium 4.8 mmol/L (3.3-5.1); Sodium 141 mmol/L (135-145)
== END 2024-03-27 11:00 | disposition home or self-care (01) ==
LOC: HO.CHCLDS 10:59
PROVIDERS: Visit Provider Internal Medicine
DX: N17.9 Acute kidney failure, unspecified (principal)
CPT/HCPCS: 36415; 80048

== ENCOUNTER 2024-04-12 09:34 | Outpatient (REF) | payer MEDICARE, SELFPAY ==
--- OUTSIDE RECORDS SUMMARY | 2024-04-15 09:38 | XMS_ITS | Clinical Summary ---
Author Organization Unknown Care Team Providers Care Secondary History Teacher Name Role Phone MARCO RAMIREZ, POOJA Unavailable Unavaileddie GAVIN RN, DAGOBERTO Unavailable Unavailab abraham MANTILLA LPN, YORDAN Unavailable Unavail able BARBARA PT, COURTNEY Unavailable Unavailable SHERYL GRAIN ORIGINATION SPECIALIST, JANETT Unavailable Unavailable SPAFFORD OT, DAGO Unavailable Unavailable SHEYLA BLUEPRINT CUTTER, ANTONIO Unavailable Unavailable Payers Payer Name Policy Type Policy Number Effective Date Expira tion Date [id number] Problems Condition Name Condition Details Condition Category [...] 2023-05 00:00: 00 ATHSCL HEART DISEASE OF [place] CORONARY ARTERY W/O ANG PCTRS Active 05-01 00:00: 00 MIXED HYPERLIPIDEM IA Active 05-01 00:00: 00 UNSPECIFIED MOOD [AFFECTIVE] DISORDER Active 05-01 00:00: 00 DVRTCLOS OF INTEST, PART UNSP, 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 05-01 00:00: 00 BENIGN PROSTATIC HYPERPLASIA WITHOUT LOWER URINRY TRACT SYMP Active 05-01 00:00: 00 ALCOHOL ABUSE, IN REMISSION Active 05-01 00:00: 00 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 2023-05 [...] immediate release tablet 2023-05 00:00: 00 Yes [id number] PAIN 15 mg EVERY 6 HOURS NEEDED 15 mg EVERY 6 HOURS NEEDED (route: oral) Med Classific ation: Analgesic , Anti-infl ammatory or Antipyret ic clonazepam 0.5 mg tablet 2023-05 00:00: 00 Yes [id number] ANXIETY 0.5 mg 2 TIMES DAILY 0.5 mg 2 TIMES DAILY (route: oral) Med Classific ation: Central Nervous System Agents lisinopril 40 mg tablet 2023-05 00:00: 00 03-21 23:59 :00 No [id number] CAD 40 mg DAILY 40 mg DAILY (route: oral) Med Classific ation: Cardiovas cular Therapy Agents atorvastati n 80 mg tablet 2023-05 00:00: 00 Yes [id number] HYPERTENSIO N 80 mg DAILY 80 mg DAILY (route: oral) Med Classific ation: Cardiovas cular Therapy Agents cilostazol 50 mg tablet 2023-05 00:00: 00 Yes [id number] HYPERTENSIO N 50 mg 2 TIMES DAILY 50 mg 2 TIMES DAILY (route: oral) Med Classific ation: Hematolog ical Agents clopidogrel 75 mg tablet 2023-05 00:00: 00 03-21 23:59 :00 No [id number] CORONARY ARTERY DISEASE 75 mg DAILY 75 mg DAILY (route: oral) Med Classific ation: Hematolog ical Agents Eliquis 5 mg tablet 2023-05 00:00: 00 Yes [id number] ANTI ARRHYTHMIC 5 mg 2 TIMES DAILY 5 mg 2 TIMES DAILY (route: oral) Med Classific ation: Hematolog ical Agents furosemide 40 mg tablet 2023-05 00:00: 00 03-21 23:59 :00 No [id number] BPH 40 mg DAILY 40 mg DAILY (route: oral) Alternate Route: INTRA-MUS CULAR. Med Classific ation: Cardiovas cular Therapy Agents metoprolol tartrate 50 mg tablet 2023-05 00:00: 00 03-22 23:59 :00 No [id number] CAD 50 mg DAILY 50 mg DAILY (route: oral) Med Classific ation: Cardiovas cular Therapy Agents quetiapine 25 mg tablet 2023-05 00:00: 00 Yes [id number] MOOD STABILIZER 25 mg 2 TIMES DAILY 25 mg 2 TIMES DAILY (route: oral) Med Classific ation: Central Nervous System Agents sertraline 50 mg tablet 2023-05 00:00: 00 Yes [id number] MOOD STABILIZER 50 mg DAILY 50 mg DAILY (route: oral) Med Classific ation: Central Nervous System Agents tamsulosin 0.4 mg capsule 2023-05 00:00: 00 Yes [id number] BPH 0.4 mg DAILY 0.4 mg DAILY (route: oral) Med Classific ation: Genitouri nary Therapy docusate sodium 100 mg tablet 2023-05 00:00: 00 Yes [id number] CONSTIPATIO N 100 mg DAILY 100 mg DAILY (route: oral) Med Classific ation: Gastroint estinal Therapy Agents gabapentin 100 mg capsule 2023-05 00:00: 00 Yes [id number] PAIN 1-3 capsule BEDTIME 1-3 capsule BEDTIME (route: oral) Med Classific ation: Central Nervous System Agents metoprolol tartrate 25 mg tablet 2023-05 00:00: 00 03-27 16:09 :43.1 53 No [id number] HYPERTENSIO N 25 mg 2 TIMES DAILY 25 mg 2 TIMES DAILY (route: oral) Med Classific ation: Cardiovas cular Therapy Agents Multaq 400 mg tablet 2023-05 00:00: 00 Yes [id number] ANTIARRHYTH MICHAEL 400 mg 2 TIMES DAILY 400 mg 2 TIMES DAILY (route: oral) Med Classific ation: Cardiovas cular Therapy Agents furosemide 40 mg tablet 2023-05 00:00: 00 Yes [id number] edema 1 tablet DAILY 1 tablet DAILY (route: oral) Med Classific ation: Cardiovas cular Therapy Agents dextroamphe tamine-amph etamine 7.5 mg tablet 2023-05 00:00: 00 Yes [id number] attention 1 tablet DAILY 1 tablet DAILY (route: oral) Med Classific ation: Central Nervous System Agents metoprolol tartrate 25 mg tablet 2023-05 00:00: 00 Yes [id number] heart rate 0.5 tablet 2 TIMES DAILY 0.5 tablet 2 TIMES DAILY (route: oral) Med Classific ation: Cardiovas cular Therapy Agents cephalexin 500 mg capsule 2023-05 00:00: 00 04-10 23:59 :00 No [id number] CELLULITIS LLL 500 mg 4 TIMES DAILY 500 mg 4 TIMES DAILY (route: oral) Med Classific ation: Anti-Infe ctive Agents Vital Signs Vital Name Observation Time Observation Value Commen ts Temperature 2024-04-11 13:10:00.000 97.2 [degF] Temperature 2024-04-09 09:50:00.000 98.9 [degF] Temperature 2024-04-09 09:01:00.000 98.3 [degF] Temperature 2024-04-04 11:04:00.000 98.6 [degF] Temperature 2024-04-02 12:17:00.000 98 [degF] Temperature 2024-04-02 12:11:00.000 98 [degF] Temperature 2024-04-02 09:07:00.000 98.6 [degF] Temperature 2024-03-30 14:57:00.000 98.6 [degF] Temperature 2024-03-29 13:07:00.000 98.3 [degF] Temperature 2024-03-26 12:59:00.000 98.6 [degF] Temperature 2024-03-22 10:58:00.000 97.8 [degF] BMI (%) 2024-03-22 10:58:00.000 31 kg/m2 Height 2024-03-22 10:58:00.000 72 [in_us] Pulse 2024-04-11 13:10:00.000 80 /min Pulse 2024-04-09 09:50:00.000 66 /min Pulse 2024-04-09 [...] Saturation (%) 2024-03-22 11:16:00.000 92 % Respirations 2024-04-11 13:10:00.000 18 /min Respirations 2024-04-09 09:50:00.000 18 /min Respirations 2024-04-09 [...] 2024-03-22 10:58:00.000 234 [lb_av] Systolic Blood Pressure 2024-04-11 13:10:00.000 112 mm [Hg] Systolic Blood Pressure 2024-04-09 09:50:00.000 128 mm [...] 10:58:00.000 123 mm [Hg] Diastolic Blood Pressure 2024-04-11 13:10:00.000 66 mm [Hg] Diastolic Blood Pressure 2024-04-09 09:50:00.000 [...] TION MANAGEMENT; RN TO ASSESS AND TEACH, RIVER RAT/FINANCIAL REPRESENTATIVE TO OBSERVE AND TEACH ON EDUCATION AND INTERVENTION TO IDENTIFY FALL RISK FACTORS SUCH MEDICATIONS THAT MAY CAUSE DIZZINESS, CHRONIC DISEASES, PSYCHOLOGICAL FACTORS, AND EMPOWER/EDUCATE PATIENT/CAREGIVER TO MINIMIZE FALL RISK. [code = FALL REDUCTION MANAGEMENT; RN TO ASSESS AND TEACH, RIVER RAT/FINANCIAL REPRESENTATIVE TO OBSERVE AND TEACH ON EDUCATION AND INTERVENTION TO IDENTIFY FALL RISK FACTORS SUCH MEDICATIONS THAT MAY CAUSE DIZZINESS, CHRONIC DISEASES, PSYCHOLOGICAL FACTORS, AND EMPOWER/EDUCATE PATIENT/CAREGIVER TO MINIMIZE FALL RISK.] Future Scheduled Test RN TO OBSE RVE, ASSESS, EVALUATE, AND DEVELOP AN INDIVIDUALIZED PLAN OF CARE. AGENCY MAY ACCEPT ORDERS FROM CONSULTING PHYSICIANS . RN TO OBSERVE AND ASSESS, RIVER RAT/FINANCIAL REPRESENTATIVE TO OBSERVE FOR RISK FOR FALLS AND INSTRUCT IN FALL PREVENTION, HOME SAFETY, MEDICATION MANAGEMENT, INFECTION PREVENTION, AND NUTRITION MANAGEMENT. RN/RIVER RAT/FINANCIAL REPRESENTATIVE NURSE MAY PERFORM O2 SATURATION LEVEL ON ADMISSION AND PRN FOR FOR RN TO ASSESS/RIVER RAT TO OBSERVE PATIENT, WITH NOTIFICATION TO THE PHYSICIAN IF SATURATION IS 90% IN THE ABSENCE OF MORE SPECIFIC PARAMETERS FROM THE PHYSICIAN. AGENCY MAY PERFORM A RESUMPTION OF CARE VISIT FOLLOWING ANY HOSPITAL ADMISSION. RN/RIVER RAT/FINANCIAL REPRESENTATIVE TO MONITOR CO-MORBID CONDITIONS LISTED ON THE PLAN OF CARE AND ANY NEW CONDITIONS THAT PRESENT THEMSELVES DURING THIS EPISODE TO IDENTIFY CHANGES AND INTERVENE TO MINIMIZE COMPLICATIONS. [code = RN TO OBSERVE, ASSESS, EVALUATE, AND DEVELOP AN INDIVIDUALIZED PLAN OF CARE. AGENCY MAY ACCEPT ORDERS FROM CONSULTING PHYSICIANS . RN TO OBSERVE AND ASSESS, RIVER RAT/FINANCIAL REPRESENTATIVE TO OBSERVE FOR RISK FOR FALLS AND INSTRUCT IN FALL PREVENTION, HOME SAFETY, MEDICATION MANAGEMENT, INFECTION PREVENTION, AND NUTRITION MANAGEMENT. RN/RIVER RAT/FINANCIAL REPRESENTATIVE NURSE MAY PERFORM O2 SATURATION LEVEL ON ADMISSION AND PRN FOR FOR RN TO ASSESS/RIVER RAT TO OBSERVE PATIENT, WITH NOTIFICATION TO THE PHYSICIAN IF SATURATION IS 90% IN THE ABSENCE OF MORE SPECIFIC PARAMETERS FROM THE PHYSICIAN. AGENCY MAY PERFORM A RESUMPTION OF CARE VISIT FOLLOWING ANY HOSPITAL ADMISSION. RN/RIVER RAT/FINANCIAL REPRESENTATIVE TO MONITOR CO-MORBID CONDITIONS LISTED ON THE PLAN OF CARE AND ANY NEW CONDITIONS THAT PRESENT THEMSELVES DURING THIS EPISODE TO IDENTIFY CHANGES AND INTERVENE TO MINIMIZE COMPLICATIONS.] Future Scheduled Test PAIN MANAG EMENT; RN TO ASSESS AND TEACH, FINANCIAL REPRESENTATIVE/RIVER RAT TO OBSERVE AND TEACH AND PROVIDE EDUCATION ON PAIN MANAGEMENT TECHNIQUES. [code = PAIN MANAGEMENT; RN TO ASSESS AND TEACH, FINANCIAL REPRESENTATIVE/RIVER RAT TO OBSERVE AND TEACH AND PROVIDE EDUCATION ON PAIN MANAGEMENT TECHNIQUES.] Future Scheduled Test PRN VISITS ; NUMBER OF RN/RIVER RAT/FINANCIAL REPRESENTATIVE VISITS:2 RN/RIVER RAT/FINANCIAL REPRESENTATIVE TO PERFORM: MED EDUCATION/RECONCILIATION FOR THE FOLLOWING REASONS: MED COMPLICATIONS [code = PRN VISITS; NUMBER OF RN/RIVER RAT/FINANCIAL REPRESENTATIVE VISITS:2 RN/RIVER RAT/FINANCIAL REPRESENTATIVE TO PERFORM: MED EDUCATION/RECONCILIATION FOR THE FOLLOWING REASONS: MED COMPLICATIONS] Future Scheduled Test RISK FOR H OSPITALIZATION; RN TO ASSESS/TEACH, FINANCIAL REPRESENTATIVE/RIVER RAT TO OBSERVE/TEACH PATIENT/CAREGIVER ON RISK FOR HOSPITALIZATION/EMERGENCY ROOM VISITS, TEACH SIGNS AND SYMPTOMS THAT PUT PATIENT AT RISK, WHEN TO NOTIFY NURSE/PHYSICIAN OF COMPLICATIONS/DECLINE, AND WHEN TO CALL 911. [code = RISK FOR HOSPITALIZATION; RN TO ASSESS/TEACH, FINANCIAL REPRESENTATIVE/RIVER RAT TO OBSERVE/TEACH PATIENT/CAREGIVER ON RISK FOR HOSPITALIZATION/EMERGENCY ROOM VISITS, TEACH SIGNS AND SYMPTOMS THAT PUT PATIENT AT RISK, WHEN TO NOTIFY NURSE/PHYSICIAN OF COMPLICATIONS/DECLINE, AND WHEN TO CALL 911.] Future Scheduled Test CARDIOVASC ULAR SYSTEM; RN TO ASSESS/TEACH, RIVER RAT/FINANCIAL REPRESENTATIVE TO OBSERVE/TEACH RELATED TO ALTERED CARDIOVASCULAR STATUS TO MINIMIZE COMPLICATIONS AND REDUCE HOSPITALIZATION. [code = CARDIOVASCULAR SYSTEM; RN TO ASSESS/TEACH, RIVER RAT/FINANCIAL REPRESENTATIVE TO OBSERVE/TEACH RELATED TO ALTERED CARDIOVASCULAR STATUS TO MINIMIZE COMPLICATIONS AND REDUCE HOSPITALIZATION.] Future Scheduled Test HYPOTENSIO N MANAGEMENT; RN TO ASSESS AND TEACH/ RIVER RAT /FINANCIAL REPRESENTATIVE TO OBSERVE AND TEACH WARNING SIGNS AND SYMPTOMS TO AVOID HOSPITALIZATION. [code = HYPOTENSION MANAGEMENT; RN TO ASSESS AND TEACH/ RIVER RAT /FINANCIAL REPRESENTATIVE TO OBSERVE AND TEACH WARNING SIGNS AND SYMPTOMS TO AVOID HOSPITALIZATION. ] Future Scheduled Test ARRHYTHMIA MANAGEMENT; RN TO ASSESS AND TEACH, RIVER RAT/FINANCIAL REPRESENTATIVE TO OBSERVE AND TEACH WARNING SIGNS AND SYMPTOMS TO AVOID HOSPITALIZATION. [code = ARRHYTHMIA MANAGEMENT; RN TO ASSESS AND TEACH, RIVER RAT/FINANCIAL REPRESENTATIVE TO OBSERVE AND TEACH WARNING SIGNS AND [...] End Date/Time Encounter Type Admission Type Attending [facility] Care Department Encounter ID Discharge Date Discharge Status Discharge Condition Discharge Reason Percent Goals Met 2024-03-22 00:00:00 2024-05-20 00:00:00 Outpatient NEW ADMISSION DAGOBERTO GAVIN [facility] [id number] 15.79
--- OUTSIDE RECORDS SUMMARY | 2024-04-15 09:38 | XMS_ITS | Clinical Summary ---
Author Organization Unknown Care Team Providers Care Quality Control Name Role Phone MARCO RAMIREZ, POOJA Unavailable Unavaileddie GAVIN RN, DAGOBERTO Unavailable Unavailab abraham MANTILLA LPN, YORDAN Unavailable Unavail able BARBARA PT, COURTNEY Unavailable Unavailable SHERYL KETTLE OPERATOR HEAD, JANETT Unavailable Unavailable SPAFFORD OT, DAGO Unavailable Unavailable SHEYLA SANITATION SUPERVISOR, ANTONIO Unavailable Unavailable Payers Payer Name Policy Type Policy Number Effective Date Expira tion Date [facility] [id number] Problems Condition Name Condition Details Condition Category [...] 2023-05 00:00: 00 ATHSCL HEART DISEASE OF [place] CORONARY ARTERY W/O ANG PCTRS Active 05-01 00:00: 00 MIXED HYPERLIPIDEM IA Active 05-01 00:00: 00 UNSPECIFIED MOOD [AFFECTIVE] DISORDER Active 05-01 00:00: 00 DVRTCLOS OF INTEST, PART UNSP, 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 05-01 00:00: 00 BENIGN PROSTATIC HYPERPLASIA WITHOUT LOWER URINRY TRACT SYMP Active 05-01 00:00: 00 ALCOHOL ABUSE, IN REMISSION Active 05-01 00:00: 00 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 2023-05 [...] immediate release tablet 2023-05 00:00: 00 Yes [id number] PAIN 15 mg EVERY 6 HOURS NEEDED 15 mg EVERY 6 HOURS NEEDED (route: oral) Med Classific ation: Analgesic , Anti-infl ammatory or Antipyret ic clonazepam 0.5 mg tablet 2023-05 00:00: 00 Yes [id number] ANXIETY 0.5 mg 2 TIMES DAILY 0.5 mg 2 TIMES DAILY (route: oral) Med Classific ation: Central Nervous System Agents lisinopril 40 mg tablet 2023-05 00:00: 00 03-21 23:59 :00 No [id number] CAD 40 mg DAILY 40 mg DAILY (route: oral) Med Classific ation: Cardiovas cular Therapy Agents atorvastati n 80 mg tablet 2023-05 00:00: 00 Yes [id number] HYPERTENSIO N 80 mg DAILY 80 mg DAILY (route: oral) Med Classific ation: Cardiovas cular Therapy Agents cilostazol 50 mg tablet 2023-05 00:00: 00 Yes [id number] HYPERTENSIO N 50 mg 2 TIMES DAILY 50 mg 2 TIMES DAILY (route: oral) Med Classific ation: Hematolog ical Agents clopidogrel 75 mg tablet 2023-05 00:00: 00 03-21 23:59 :00 No [id number] CORONARY ARTERY DISEASE 75 mg DAILY 75 mg DAILY (route: oral) Med Classific ation: Hematolog ical Agents Eliquis 5 mg tablet 2023-05 00:00: 00 Yes [id number] ANTI ARRHYTHMIC 5 mg 2 TIMES DAILY 5 mg 2 TIMES DAILY (route: oral) Med Classific ation: Hematolog ical Agents furosemide 40 mg tablet 2023-05 00:00: 00 03-21 23:59 :00 No [id number] BPH 40 mg DAILY 40 mg DAILY (route: oral) Alternate Route: INTRA-MUS CULAR. Med Classific ation: Cardiovas cular Therapy Agents metoprolol tartrate 50 mg tablet 2023-05 00:00: 00 03-22 23:59 :00 No [id number] CAD 50 mg DAILY 50 mg DAILY (route: oral) Med Classific ation: Cardiovas cular Therapy Agents quetiapine 25 mg tablet 2023-05 00:00: 00 Yes [id number] MOOD STABILIZER 25 mg 2 TIMES DAILY 25 mg 2 TIMES DAILY (route: oral) Med Classific ation: Central Nervous System Agents sertraline 50 mg tablet 2023-05 00:00: 00 Yes [id number] MOOD STABILIZER 50 mg DAILY 50 mg DAILY (route: oral) Med Classific ation: Central Nervous System Agents tamsulosin 0.4 mg capsule 2023-05 00:00: 00 Yes [id number] BPH 0.4 mg DAILY 0.4 mg DAILY (route: oral) Med Classific ation: Genitouri nary Therapy docusate sodium 100 mg tablet 2023-05 00:00: 00 Yes [id number] CONSTIPATIO N 100 mg DAILY 100 mg DAILY (route: oral) Med Classific ation: Gastroint estinal Therapy Agents gabapentin 100 mg capsule 2023-05 00:00: 00 Yes [id number] PAIN 1-3 capsule BEDTIME 1-3 capsule BEDTIME (route: oral) Med Classific ation: Central Nervous System Agents metoprolol tartrate 25 mg tablet 2023-05 00:00: 00 03-27 16:09 :43.1 53 No [id number] HYPERTENSIO N 25 mg 2 TIMES DAILY 25 mg 2 TIMES DAILY (route: oral) Med Classific ation: Cardiovas cular Therapy Agents Multaq 400 mg tablet 2023-05 00:00: 00 Yes [id number] ANTIARRHYTH MICHAEL 400 mg 2 TIMES DAILY 400 mg 2 TIMES DAILY (route: oral) Med Classific ation: Cardiovas cular Therapy Agents furosemide 40 mg tablet 2023-05 00:00: 00 Yes [id number] edema 1 tablet DAILY 1 tablet DAILY (route: oral) Med Classific ation: Cardiovas cular Therapy Agents dextroamphe tamine-amph etamine 7.5 mg tablet 2023-05 00:00: 00 Yes [id number] attention 1 tablet DAILY 1 tablet DAILY (route: oral) Med Classific ation: Central Nervous System Agents metoprolol tartrate 25 mg tablet 2023-05 00:00: 00 Yes [id number] heart rate 0.5 tablet 2 TIMES DAILY 0.5 tablet 2 TIMES DAILY (route: oral) Med Classific ation: Cardiovas cular Therapy Agents cephalexin 500 mg capsule 2023-05 00:00: 00 04-10 23:59 :00 No [id number] CELLULITIS LLL 500 mg 4 TIMES DAILY [...] TION MANAGEMENT; RN TO ASSESS AND TEACH, METALLURGICAL ENGINEERING TECHNICIAN/BRASS POLISHER TO OBSERVE AND TEACH ON EDUCATION AND INTERVENTION TO IDENTIFY FALL RISK FACTORS SUCH MEDICATIONS THAT MAY CAUSE DIZZINESS, CHRONIC DISEASES, PSYCHOLOGICAL FACTORS, AND EMPOWER/EDUCATE PATIENT/CAREGIVER TO MINIMIZE FALL RISK. [code = FALL REDUCTION MANAGEMENT; RN TO ASSESS AND TEACH, METALLURGICAL ENGINEERING TECHNICIAN/BRASS POLISHER TO OBSERVE AND TEACH ON EDUCATION AND INTERVENTION TO IDENTIFY FALL RISK FACTORS SUCH MEDICATIONS THAT MAY CAUSE DIZZINESS, CHRONIC DISEASES, PSYCHOLOGICAL FACTORS, AND EMPOWER/EDUCATE PATIENT/CAREGIVER TO MINIMIZE FALL RISK.] Future Scheduled Test RN TO OBSE RVE, ASSESS, EVALUATE, AND DEVELOP AN INDIVIDUALIZED PLAN OF CARE. AGENCY MAY ACCEPT ORDERS FROM CONSULTING PHYSICIANS . RN TO OBSERVE AND ASSESS, METALLURGICAL ENGINEERING TECHNICIAN/BRASS POLISHER TO OBSERVE FOR RISK FOR FALLS AND INSTRUCT IN FALL PREVENTION, HOME SAFETY, MEDICATION MANAGEMENT, INFECTION PREVENTION, AND NUTRITION MANAGEMENT. RN/METALLURGICAL ENGINEERING TECHNICIAN/BRASS POLISHER NURSE MAY PERFORM O2 SATURATION LEVEL ON ADMISSION AND PRN FOR FOR RN TO ASSESS/METALLURGICAL ENGINEERING TECHNICIAN TO OBSERVE PATIENT, WITH NOTIFICATION TO THE PHYSICIAN IF SATURATION IS 90% IN THE ABSENCE OF MORE SPECIFIC PARAMETERS FROM THE PHYSICIAN. AGENCY MAY PERFORM A RESUMPTION OF CARE VISIT FOLLOWING ANY HOSPITAL ADMISSION. RN/METALLURGICAL ENGINEERING TECHNICIAN/BRASS POLISHER TO MONITOR CO-MORBID CONDITIONS LISTED ON THE PLAN OF CARE AND ANY NEW CONDITIONS THAT PRESENT THEMSELVES DURING THIS EPISODE TO IDENTIFY CHANGES AND INTERVENE TO MINIMIZE COMPLICATIONS. [code = RN TO OBSERVE, ASSESS, EVALUATE, AND DEVELOP AN INDIVIDUALIZED PLAN OF CARE. AGENCY MAY ACCEPT ORDERS FROM CONSULTING PHYSICIANS . RN TO OBSERVE AND ASSESS, METALLURGICAL ENGINEERING TECHNICIAN/BRASS POLISHER TO OBSERVE FOR RISK FOR FALLS AND INSTRUCT IN FALL PREVENTION, HOME SAFETY, MEDICATION MANAGEMENT, INFECTION PREVENTION, AND NUTRITION MANAGEMENT. RN/METALLURGICAL ENGINEERING TECHNICIAN/BRASS POLISHER NURSE MAY PERFORM O2 SATURATION LEVEL ON ADMISSION AND PRN FOR FOR RN TO ASSESS/METALLURGICAL ENGINEERING TECHNICIAN TO OBSERVE PATIENT, WITH NOTIFICATION TO THE PHYSICIAN IF SATURATION IS 90% IN THE ABSENCE OF MORE SPECIFIC PARAMETERS FROM THE PHYSICIAN. AGENCY MAY PERFORM A RESUMPTION OF CARE VISIT FOLLOWING ANY HOSPITAL ADMISSION. RN/METALLURGICAL ENGINEERING TECHNICIAN/BRASS POLISHER TO MONITOR CO-MORBID CONDITIONS LISTED ON THE PLAN OF CARE AND ANY NEW CONDITIONS THAT PRESENT THEMSELVES DURING THIS EPISODE TO IDENTIFY CHANGES AND INTERVENE TO MINIMIZE COMPLICATIONS.] Future Scheduled Test PAIN MANAG EMENT; RN TO ASSESS AND TEACH, BRASS POLISHER/METALLURGICAL ENGINEERING TECHNICIAN TO OBSERVE AND TEACH AND PROVIDE EDUCATION ON PAIN MANAGEMENT TECHNIQUES. [code = PAIN MANAGEMENT; RN TO ASSESS AND TEACH, BRASS POLISHER/METALLURGICAL ENGINEERING TECHNICIAN TO OBSERVE AND TEACH AND PROVIDE EDUCATION ON PAIN MANAGEMENT TECHNIQUES.] Future Scheduled Test PRN VISITS ; NUMBER OF RN/METALLURGICAL ENGINEERING TECHNICIAN/BRASS POLISHER VISITS:2 RN/METALLURGICAL ENGINEERING TECHNICIAN/BRASS POLISHER TO PERFORM: MED EDUCATION/RECONCILIATION FOR THE FOLLOWING REASONS: MED COMPLICATIONS [code = PRN VISITS; NUMBER OF RN/METALLURGICAL ENGINEERING TECHNICIAN/BRASS POLISHER VISITS:2 RN/METALLURGICAL ENGINEERING TECHNICIAN/BRASS POLISHER TO PERFORM: MED EDUCATION/RECONCILIATION FOR THE FOLLOWING REASONS: MED COMPLICATIONS] Future Scheduled Test RISK FOR H OSPITALIZATION; RN TO ASSESS/TEACH, BRASS POLISHER/METALLURGICAL ENGINEERING TECHNICIAN TO OBSERVE/TEACH PATIENT/CAREGIVER ON RISK FOR HOSPITALIZATION/EMERGENCY ROOM VISITS, TEACH SIGNS AND SYMPTOMS THAT PUT PATIENT AT RISK, WHEN TO NOTIFY NURSE/PHYSICIAN OF COMPLICATIONS/DECLINE, AND WHEN TO CALL 911. [code = RISK FOR HOSPITALIZATION; RN TO ASSESS/TEACH, BRASS POLISHER/METALLURGICAL ENGINEERING TECHNICIAN TO OBSERVE/TEACH PATIENT/CAREGIVER ON RISK FOR HOSPITALIZATION/EMERGENCY ROOM VISITS, TEACH SIGNS AND SYMPTOMS THAT PUT PATIENT AT RISK, WHEN TO NOTIFY NURSE/PHYSICIAN OF COMPLICATIONS/DECLINE, AND WHEN TO CALL 911.] Future Scheduled Test CARDIOVASC ULAR SYSTEM; RN TO ASSESS/TEACH, METALLURGICAL ENGINEERING TECHNICIAN/BRASS POLISHER TO OBSERVE/TEACH RELATED TO ALTERED CARDIOVASCULAR STATUS TO MINIMIZE COMPLICATIONS AND REDUCE HOSPITALIZATION. [code = CARDIOVASCULAR SYSTEM; RN TO ASSESS/TEACH, METALLURGICAL ENGINEERING TECHNICIAN/BRASS POLISHER TO OBSERVE/TEACH RELATED TO ALTERED CARDIOVASCULAR STATUS TO MINIMIZE COMPLICATIONS AND REDUCE HOSPITALIZATION.] Future Scheduled Test HYPOTENSIO N MANAGEMENT; RN TO ASSESS AND TEACH/ METALLURGICAL ENGINEERING TECHNICIAN /BRASS POLISHER TO OBSERVE AND TEACH WARNING SIGNS AND SYMPTOMS TO AVOID HOSPITALIZATION. [code = HYPOTENSION MANAGEMENT; RN TO ASSESS AND TEACH/ METALLURGICAL ENGINEERING TECHNICIAN /BRASS POLISHER TO OBSERVE AND TEACH WARNING SIGNS AND SYMPTOMS TO AVOID HOSPITALIZATION. ] Future Scheduled Test ARRHYTHMIA MANAGEMENT; RN TO ASSESS AND TEACH, METALLURGICAL ENGINEERING TECHNICIAN/BRASS POLISHER TO OBSERVE AND TEACH WARNING SIGNS AND SYMPTOMS TO AVOID HOSPITALIZATION. [code = ARRHYTHMIA MANAGEMENT; RN TO ASSESS AND TEACH, METALLURGICAL ENGINEERING TECHNICIAN/BRASS POLISHER TO OBSERVE AND TEACH WARNING SIGNS AND [...] End Date/Time Encounter Type Admission Type Attending [facility] Care Department Encounter ID Discharge Date Discharge Status Discharge Condition Discharge Reason Percent Goals Met 2024-03-22 00:00:00 2024-05-20 00:00:00 Outpatient NEW ADMISSION DAGOBERTO GAVIN [facility] [id number] 15.79
== END 2024-04-12 09:35 | disposition home or self-care (01) ==
LOC: HO.HOSX 09:34
DX: S42.031A Displaced fracture of lateral end of right clavicle, initial encounter for closed fracture (principal); R94.31 Abnormal electrocardiogram [ECG] [EKG]; Z79.899 Other long term (current) drug therapy
CPT/HCPCS: 73000; 93005; 99202

== ENCOUNTER 2024-04-12 09:37 | Outpatient (AMB) | payer MEDICARE, SELFPAY ==
--- OUTSIDE RECORDS SUMMARY | 2024-04-12 09:42 | XMS_ITS | Clinical Summary ---
Author Organization Unknown Care Team Providers [facility] Name Role Phone MARCO RAMIREZ, POOJA Unavailable Unavaileddie GAVIN RN, DAGOBERTO Unavailable Unavailab abraham MANTILLA LPN, YORDAN Unavailable Unavail able BARBARA PT, COURTNEY Unavailable Unavailable SHERYL CHILD LIFE ASSISTANT, JANETT Unavailable Unavailable SPAFFORD OT, DAGO Unavailable Unavailable SHEYLA ELEVATED WORK PLATFORM OPERATOR, ANTONIO Unavailable Unavailable Payers Payer Name Policy Type Policy Number Effective Date Expira tion Date [facility] [id number] Problems Condition Name Condition Details Condition Category Status Onset Date Resolution Date Last Treatment Date Treating Clinician Comments UNSPECIFIED ATRIAL FLUTTER Active 2023-05 00:00: 00 SUPRAVENTRIC ULAR TACHYCARDIA, UNSPECIFIED Active 2023-05 00:00: 00 DISP FX OF SHAFT OF RIGHT CLAVICLE, SUBS FOR FX W ROUTN HEAL Active 2023-05 00:00: 00 HYPERTENSIVE CHRONIC KIDNEY DISEASE W STG 1-4/UNSP CHR KDNY Active 2023-05 00:00: 00 CHRONIC KIDNEY DISEASE, STAGE 3 UNSPECIFIED Active 2023-05 00:00: 00 ACUTE KIDNEY FAILURE, UNSPECIFIED Active 2023-05 00:00: 00 UNSPECIFIED ATRIAL FIBRILLATION Active 05-01 00:00: 00 EMPHYSEMA, UNSPECIFIED Active 2023-05 00:00: 00 COVID-19 Active 2023-05 00:00: 00 POLYNEUROPAT HY, UNSPECIFIED Active 05-01 00:00: 00 SPONDYLOSIS W/O MYELOPATHY OR RADICULOPATH Y, CERVICAL REGION Active 2023-05 00:00: 00 ATHSCL HEART DISEASE OF [place] CORONARY ARTERY W/O ANG PCTRS Active 05-01 00:00: 00 MIXED HYPERLIPIDEM IA Active 05-01 00:00: 00 UNSPECIFIED MOOD [AFFECTIVE] DISORDER Active 05-01 00:00: 00 DVRTCLOS OF INTEST, PART UNSP, 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 05-01 00:00: 00 BENIGN PROSTATIC HYPERPLASIA WITHOUT LOWER URINRY TRACT SYMP Active 05-01 00:00: 00 ALCOHOL ABUSE, IN REMISSION Active 05-01 00:00: 00 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 (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 Ordering Clinician Indication Dosage Frequency Signature (SIG) Comments Components morphine 15 mg immediate release tablet 2023-05 00:00: 00 Yes [id number] PAIN 15 mg EVERY 6 HOURS NEEDED 15 mg EVERY 6 HOURS NEEDED (route: oral) Med Classific ation: Analgesic , Anti-infl ammatory or Antipyret ic clonazepam 0.5 mg tablet 2023-05 00:00: 00 Yes [id number] ANXIETY 0.5 mg 2 TIMES DAILY 0.5 mg 2 TIMES DAILY (route: oral) Med Classific ation: Central Nervous System Agents lisinopril 40 mg tablet 2023-05 00:00: 00 03-21 23:59 :00 No [id number] CAD 40 mg DAILY 40 mg DAILY (route: oral) Med Classific ation: Cardiovas cular Therapy Agents atorvastati n 80 mg tablet 2023-05 00:00: 00 Yes [id number] HYPERTENSIO N 80 mg DAILY 80 mg DAILY (route: oral) Med Classific ation: Cardiovas cular Therapy Agents cilostazol 50 mg tablet 2023-05 00:00: 00 Yes [id number] HYPERTENSIO N 50 mg 2 TIMES DAILY 50 mg 2 TIMES DAILY (route: oral) Med Classific ation: Hematolog ical Agents clopidogrel 75 mg tablet 2023-05 00:00: 00 03-21 23:59 :00 No [id number] CORONARY ARTERY DISEASE 75 mg DAILY 75 mg DAILY (route: oral) Med Classific ation: Hematolog ical Agents Eliquis 5 mg tablet 2023-05 00:00: 00 Yes [id number] ANTI ARRHYTHMIC 5 mg 2 TIMES DAILY 5 mg 2 TIMES DAILY (route: oral) Med Classific ation: Hematolog ical Agents furosemide 40 mg tablet 2023-05 00:00: 00 03-21 23:59 :00 No [id number] BPH 40 mg DAILY 40 mg DAILY (route: oral) Alternate Route: INTRA-MUS CULAR. Med Classific ation: Cardiovas cular Therapy Agents metoprolol tartrate 50 mg tablet 2023-05 00:00: 00 03-22 23:59 :00 No [id number] CAD 50 mg DAILY 50 mg DAILY (route: oral) Med Classific ation: Cardiovas cular Therapy Agents quetiapine 25 mg tablet 2023-05 00:00: 00 Yes [id number] MOOD STABILIZER 25 mg 2 TIMES DAILY 25 mg 2 TIMES DAILY (route: oral) Med Classific ation: Central Nervous System Agents sertraline 50 mg tablet 2023-05 00:00: 00 Yes [id number] MOOD STABILIZER 50 mg DAILY 50 mg DAILY (route: oral) Med Classific ation: Central Nervous System Agents tamsulosin 0.4 mg capsule 2023-05 00:00: 00 Yes [id number] BPH 0.4 mg DAILY 0.4 mg DAILY (route: oral) Med Classific ation: Genitouri nary Therapy docusate sodium 100 mg tablet 2023-05 00:00: 00 Yes [id number] CONSTIPATIO N 100 mg DAILY 100 mg DAILY (route: oral) Med Classific ation: Gastroint estinal Therapy Agents gabapentin 100 mg capsule 2023-05 00:00: 00 Yes [id number] PAIN 1-3 capsule BEDTIME 1-3 capsule BEDTIME (route: oral) Med Classific ation: Central Nervous System Agents metoprolol tartrate 25 mg tablet 2023-05 00:00: 00 03-27 16:09 :43.1 53 No [id number] HYPERTENSIO N 25 mg 2 TIMES DAILY 25 mg 2 TIMES DAILY (route: oral) Med Classific ation: Cardiovas cular Therapy Agents Multaq 400 mg tablet 2023-05 00:00: 00 Yes [id number] ANTIARRHYTH MICHAEL 400 mg 2 TIMES DAILY 400 mg 2 TIMES DAILY (route: oral) Med Classific ation: Cardiovas cular Therapy Agents furosemide 40 mg tablet 2023-05 00:00: 00 Yes [id number] edema 1 tablet DAILY 1 tablet DAILY (route: oral) Med Classific ation: Cardiovas cular Therapy Agents dextroamphe tamine-amph etamine 7.5 mg tablet 2023-05 00:00: 00 Yes [id number] attention 1 tablet DAILY 1 tablet DAILY (route: oral) Med Classific ation: Central Nervous System Agents metoprolol tartrate 25 mg tablet 2023-05 00:00: 00 Yes [id number] heart rate 0.5 tablet 2 TIMES DAILY 0.5 tablet 2 TIMES DAILY (route: oral) Med Classific ation: Cardiovas cular Therapy Agents cephalexin 500 mg capsule 2023-05 00:00: 00 04-10 23:59 :00 No [id number] CELLULITIS LLL 500 mg 4 TIMES DAILY 500 mg 4 TIMES DAILY (route: oral) Med Classific ation: Anti-Infe ctive Agents Vital Signs Vital Name Observation Time Observation Value Commen ts Temperature 2024-04-09 09:50:00.000 98.9 [degF] Temperature 2024-04-09 09:01:00.000 98.3 [degF] Temperature 2024-04-04 11:04:00.000 98.6 [degF] Temperature 2024-04-02 12:17:00.000 98 [degF] Temperature 2024-04-02 12:11:00.000 98 [degF] Temperature 2024-04-02 09:07:00.000 98.6 [degF] Temperature 2024-03-30 14:57:00.000 98.6 [degF] Temperature 2024-03-29 13:07:00.000 98.3 [degF] Temperature 2024-03-26 12:59:00.000 98.6 [degF] Temperature 2024-03-22 10:58:00.000 97.8 [degF] BMI (%) 2024-03-22 10:58:00.000 31 kg/m2 Height 2024-03-22 10:58:00.000 72 [in_us] Pulse 2024-04-09 09:50:00.000 66 /min Pulse 2024-04-09 09:01:00.000 60 /min Pulse 2024-04-04 11:04:00.000 60 /min Pulse 2024-04-02 12:17:00.000 68 /min Pulse 2024-04-02 12:11:00.000 68 /min Pulse 2024-04-02 09:07:00.000 60 /min Pulse 2024-03-30 14:57:00.000 78 /min Pulse 2024-03-29 13:07:00.000 58 /min Pulse 2024-03-26 12:59:00.000 80 /min Pulse 2024-03-22 10:58:00.000 103 /min O2 Saturation (%) 2024-04-09 09:01:00.000 99 % O2 Saturation (%) 2024-04-04 11:04:00.000 98 % O2 Saturation (%) 2024-04-02 12:11:00.000 98 % O2 Saturation (%) 2024-03-22 11:16:00.000 92 % Respirations 2024-04-09 09:50:00.000 18 /min Respirations 2024-04-09 09:01:00.000 18 /min Respirations 2024-04-04 11:04:00.000 18 /min Respirations 2024-04-02 12:17:00.000 18 /min Respirations 2024-04-02 12:11:00.000 18 /min Respirations 2024-04-02 09:07:00.000 18 /min Respirations 2024-03-30 14:57:00.000 18 /min Respirations 2024-03-29 13:07:00.000 18 /min Respirations 2024-03-26 12:59:00.000 18 /min Respirations 2024-03-22 10:58:00.000 16 /min Weight (lbs) 2024-04-09 09:01:00.000 248.2 [lb_av] Weight (lbs) 2024-04-04 11:06:00.000 242.4 [lb_av] Weight (lbs) 2024-03-29 13:08:00.000 241 [lb_av] Weight (lbs) 2024-03-22 10:58:00.000 234 [lb_av] Systolic Blood Pressure 2024-04-09 09:50:00.000 128 mm [Hg] Systolic Blood Pressure 2024-04-09 09:01:00.000 122 mm [Hg] Systolic Blood Pressure 2024-04-04 11:04:00.000 122 mm [Hg] Systolic Blood Pressure 2024-04-02 12:17:00.000 136 mm [Hg] Systolic Blood Pressure 2024-04-02 12:11:00.000 136 mm [Hg] Systolic Blood Pressure 2024-04-02 09:07:00.000 130 mm [Hg] Systolic Blood Pressure 2024-03-30 14:57:00.000 130 mm [Hg] Systolic Blood Pressure 2024-03-29 13:07:00.000 138 mm [Hg] Systolic Blood Pressure 2024-03-26 12:59:00.000 122 mm [Hg] Systolic Blood Pressure 2024-03-22 10:58:00.000 123 mm [Hg] Diastolic Blood Pressure 2024-04-09 09:50:00.000 64 mm [Hg] Diastolic Blood Pressure 2024-04-09 09:01:00.000 60 mm [Hg] Diastolic Blood Pressure 2024-04-04 11:04:00.000 60 mm [Hg] Diastolic Blood Pressure 2024-04-02 12:17:00.000 82 mm [Hg] Diastolic Blood Pressure 2024-04-02 12:11:00.000 82 mm [Hg] Diastolic Blood Pressure 2024-04-02 09:07:00.000 60 mm [Hg] Diastolic Blood Pressure 2024-03-30 14:57:00.000 60 mm [Hg] Diastolic Blood Pressure 2024-03-29 13:07:00.000 78 mm [Hg] Diastolic Blood Pressure 2024-03-26 12:59:00.000 58 mm [Hg] Diastolic Blood Pressure 2024-03-22 10:58:00.000 74 mm [Hg] Plan of Treatment Planned Activity Planned Date Details Comments Future Scheduled Test PHYSICAL T HERAPIST TO EVALUATE FOR STRENGTHNG AND BALANCING [code = PHYSICAL THERAPIST TO EVALUATE FOR STRENGTHNG AND BALANCING ] Future Scheduled Test OCCUPATION AL THERAPIST TO EVALUATE FOR ADLS, AND IADLS [code = OCCUPATIONAL THERAPIST TO EVALUATE FOR ADLS, AND IADLS] Future Scheduled Test FALL REDUC TION MANAGEMENT; RN TO ASSESS AND TEACH, NIGHT CLUB MANAGER/SENIOR PROGRAMMER TO OBSERVE AND TEACH ON EDUCATION AND INTERVENTION TO IDENTIFY FALL RISK FACTORS SUCH MEDICATIONS THAT MAY CAUSE DIZZINESS, CHRONIC DISEASES, PSYCHOLOGICAL FACTORS, AND EMPOWER/EDUCATE PATIENT/CAREGIVER TO MINIMIZE FALL RISK. [code = FALL REDUCTION MANAGEMENT; RN TO ASSESS AND TEACH, NIGHT CLUB MANAGER/SENIOR PROGRAMMER TO OBSERVE AND TEACH ON EDUCATION AND INTERVENTION TO IDENTIFY FALL RISK FACTORS SUCH MEDICATIONS THAT MAY CAUSE DIZZINESS, CHRONIC DISEASES, PSYCHOLOGICAL FACTORS, AND EMPOWER/EDUCATE PATIENT/CAREGIVER TO MINIMIZE FALL RISK.] Future Scheduled Test RN TO OBSE RVE, ASSESS, EVALUATE, AND DEVELOP AN INDIVIDUALIZED PLAN OF CARE. AGENCY MAY ACCEPT ORDERS FROM CONSULTING PHYSICIANS . RN TO OBSERVE AND ASSESS, NIGHT CLUB MANAGER/SENIOR PROGRAMMER TO OBSERVE FOR RISK FOR FALLS AND INSTRUCT IN FALL PREVENTION, HOME SAFETY, MEDICATION MANAGEMENT, INFECTION PREVENTION, AND NUTRITION MANAGEMENT. RN/NIGHT CLUB MANAGER/SENIOR PROGRAMMER NURSE MAY PERFORM O2 SATURATION LEVEL ON ADMISSION AND PRN FOR FOR RN TO ASSESS/NIGHT CLUB MANAGER TO OBSERVE PATIENT, WITH NOTIFICATION TO THE PHYSICIAN IF SATURATION IS 90% IN THE ABSENCE OF MORE SPECIFIC PARAMETERS FROM THE PHYSICIAN. AGENCY MAY PERFORM A RESUMPTION OF CARE VISIT FOLLOWING ANY HOSPITAL ADMISSION. RN/NIGHT CLUB MANAGER/SENIOR PROGRAMMER TO MONITOR CO-MORBID CONDITIONS LISTED ON THE PLAN OF CARE AND ANY NEW CONDITIONS THAT PRESENT THEMSELVES DURING THIS EPISODE TO IDENTIFY CHANGES AND INTERVENE TO MINIMIZE COMPLICATIONS. [code = RN TO OBSERVE, ASSESS, EVALUATE, AND DEVELOP AN INDIVIDUALIZED PLAN OF CARE. AGENCY MAY ACCEPT ORDERS FROM CONSULTING PHYSICIANS . RN TO OBSERVE AND ASSESS, NIGHT CLUB MANAGER/SENIOR PROGRAMMER TO OBSERVE FOR RISK FOR FALLS AND INSTRUCT IN FALL PREVENTION, HOME SAFETY, MEDICATION MANAGEMENT, INFECTION PREVENTION, AND NUTRITION MANAGEMENT. RN/NIGHT CLUB MANAGER/SENIOR PROGRAMMER NURSE MAY PERFORM O2 SATURATION LEVEL ON ADMISSION AND PRN FOR FOR RN TO ASSESS/NIGHT CLUB MANAGER TO OBSERVE PATIENT, WITH NOTIFICATION TO THE PHYSICIAN IF SATURATION IS 90% IN THE ABSENCE OF MORE SPECIFIC PARAMETERS FROM THE PHYSICIAN. AGENCY MAY PERFORM A RESUMPTION OF CARE VISIT FOLLOWING ANY HOSPITAL ADMISSION. RN/NIGHT CLUB MANAGER/SENIOR PROGRAMMER TO MONITOR CO-MORBID CONDITIONS LISTED ON THE PLAN OF CARE AND ANY NEW CONDITIONS THAT PRESENT THEMSELVES DURING THIS EPISODE TO IDENTIFY CHANGES AND INTERVENE TO MINIMIZE COMPLICATIONS.] Future Scheduled Test PAIN MANAG EMENT; RN TO ASSESS AND TEACH, SENIOR PROGRAMMER/NIGHT CLUB MANAGER TO OBSERVE AND TEACH AND PROVIDE EDUCATION ON PAIN MANAGEMENT TECHNIQUES. [code = PAIN MANAGEMENT; RN TO ASSESS AND TEACH, SENIOR PROGRAMMER/NIGHT CLUB MANAGER TO OBSERVE AND TEACH AND PROVIDE EDUCATION ON PAIN MANAGEMENT TECHNIQUES.] Future Scheduled Test PRN VISITS ; NUMBER OF RN/NIGHT CLUB MANAGER/SENIOR PROGRAMMER VISITS:2 RN/NIGHT CLUB MANAGER/SENIOR PROGRAMMER TO PERFORM: MED EDUCATION/RECONCILIATION FOR THE FOLLOWING REASONS: MED COMPLICATIONS [code = PRN VISITS; NUMBER OF RN/NIGHT CLUB MANAGER/SENIOR PROGRAMMER VISITS:2 RN/NIGHT CLUB MANAGER/SENIOR PROGRAMMER TO PERFORM: MED EDUCATION/RECONCILIATION FOR THE FOLLOWING REASONS: MED COMPLICATIONS] Future Scheduled Test RISK FOR H OSPITALIZATION; RN TO ASSESS/TEACH, SENIOR PROGRAMMER/NIGHT CLUB MANAGER TO OBSERVE/TEACH PATIENT/CAREGIVER ON RISK FOR HOSPITALIZATION/EMERGENCY ROOM VISITS, TEACH SIGNS AND SYMPTOMS THAT PUT PATIENT AT RISK, WHEN TO NOTIFY NURSE/PHYSICIAN OF COMPLICATIONS/DECLINE, AND WHEN TO CALL 911. [code = RISK FOR HOSPITALIZATION; RN TO ASSESS/TEACH, SENIOR PROGRAMMER/NIGHT CLUB MANAGER TO OBSERVE/TEACH PATIENT/CAREGIVER ON RISK FOR HOSPITALIZATION/EMERGENCY ROOM VISITS, TEACH SIGNS AND SYMPTOMS THAT PUT PATIENT AT RISK, WHEN TO NOTIFY NURSE/PHYSICIAN OF COMPLICATIONS/DECLINE, AND WHEN TO CALL 911.] Future Scheduled Test CARDIOVASC ULAR SYSTEM; RN TO ASSESS/TEACH, NIGHT CLUB MANAGER/SENIOR PROGRAMMER TO OBSERVE/TEACH RELATED TO ALTERED CARDIOVASCULAR STATUS TO MINIMIZE COMPLICATIONS AND REDUCE HOSPITALIZATION. [code = CARDIOVASCULAR SYSTEM; RN TO ASSESS/TEACH, NIGHT CLUB MANAGER/SENIOR PROGRAMMER TO OBSERVE/TEACH RELATED TO ALTERED CARDIOVASCULAR STATUS TO MINIMIZE COMPLICATIONS AND REDUCE HOSPITALIZATION.] Future Scheduled Test HYPOTENSIO N MANAGEMENT; RN TO ASSESS AND TEACH/ NIGHT CLUB MANAGER /SENIOR PROGRAMMER TO OBSERVE AND TEACH WARNING SIGNS AND SYMPTOMS TO AVOID HOSPITALIZATION. [code = HYPOTENSION MANAGEMENT; RN TO ASSESS AND TEACH/ NIGHT CLUB MANAGER /SENIOR PROGRAMMER TO OBSERVE AND TEACH WARNING SIGNS AND SYMPTOMS TO AVOID HOSPITALIZATION. ] Future Scheduled Test ARRHYTHMIA MANAGEMENT; RN TO ASSESS AND TEACH, NIGHT CLUB MANAGER/SENIOR PROGRAMMER TO OBSERVE AND TEACH WARNING SIGNS AND SYMPTOMS TO AVOID HOSPITALIZATION. [code = ARRHYTHMIA MANAGEMENT; RN TO ASSESS AND TEACH, NIGHT CLUB MANAGER/SENIOR PROGRAMMER TO OBSERVE AND TEACH WARNING SIGNS AND SYMPTOMS TO AVOID HOSPITALIZATION.] Goal Patient Goal - W OULD LIKE TO BE ABLE TO EAT AND SLEEP RIGHT. Goal Provider Goal - Goal Provider Goal - Goal Provider Goal - PATIENT/CAREGIVER ABLE TO IDENTIFY FALL RISK FACTORS AND IMPLEMENT STRATEGIES TO MINIMIZE FALL RISK. PATIENT/CAREGIVER WILL VERBALIZE/DEMONSTRATE AN ABILITY TO ADHERE TO FALL REDUCTION SELF-MANAGEMENT AND LIFE-STYLE CHANGES AT DISCHARGE. PERSONAL GOAL(S) STATED BY PATIENT/CAREGIVER WILL BE MET BY DC Goal Provider Goal - A PLAN OF CARE WILL BE ESTABLISHED THAT MEETS THE PATIENTS NEEDS. PATIENT WILL DEMONSTRATE OXYGEN SATURATION WITHIN NORMAL LIMITS OR PATIENTS OPTIMAL LEVEL ESTABLISHED BY THE PHYSICIAN THROUGHOUT CARE. CHANGES TO CO-MORBID CONDITIONS AND ANY NEW CONDITIONS WILL BE IDENTIFIED AND REPORTED TO THE PHYSICIAN. Goal Provider Goal - PATIENT / CAREGIVER WILL VERBALIZE / DEMONSTRATE UNDERSTANDING OF PAIN CONTROL MEASURES BY DC Goal Provider Goal - Goal Provider Goal - PATIENT/CAREGIVER WILL VERBALIZE UNDERSTANDING OF SIGNS AND SYMPTOMS THAT PUT THE PATIENT AT RISK FOR HOSPITALIZATION /EMERGENCY ROOM VISITS, WHEN TO NOTIFY NURSE/PHYSICIAN OF COMPLICATIONS/DECLINE AND WHEN TO CALL 911. Goal Provider Goal - PATIENT / CAREGIVER WILL VERBALIZE/DEMONSTRATE UNDERSTANDING OF MEASURES TO MANAGE ALTERED CARDIOVASCULAR STATUS BY DC Goal Provider Goal - PATIENT/CAREGIVER WILL VERBALIZE/DEMONSTRATE ABILITY TO ADHERE TO SELF-MANAGEMENT OF HYPOTENSION TO MINIMIZE COMPLICATIONS AND AVOID HOSPITALIZATION BY THE END OF EPISODE. Goal Provider Goal - PATIENT / CAREGIVER WILL VERBALIZE/DEMONSTRATE AN ABILITY TO ADHERE TO SELF-MANAGEMENT OF HEART ARRHYTHMIA TO MINIMIZE COMPLICATIONS AND AVOID HOSPITALIZATION BY END OF EPISODE. Encounters Start Date/Time End Date/Time Encounter Type Admission Type Attending [facility] Care Facility Care Department Encounter ID Discharge Date Discharge Status Discharge Condition Discharge Reason Percent Goals Met 2024-03-22 00:00:00 2024-05-20 00:00:00 Outpatient NEW ADMISSION DAGOBERTO GAVIN [facility] [id number] 18.75
--- NOTE | 2024-04-12 09:54 | MHC.OFFVIS ---
Vital Signs 04/12/24 09:56 Height 6 ft Weight 240 lb BMI 32.5 Intake Visit Reasons: FC- Right clavicle fracture s/p fall Intake Note: Alex a 79 year old male who presents today for a new patient evaluation of right clavicle fracture. Patient reports about 3 weeks ago he had a fall down the stairs. He was seen at [facility] ER where x-rays were taken and referred to orthopedics. Currently he has intermittent pain that fluctuates in intensity and a little soreness in his arm. Finds relief with taking oxycodone 5 mg. Allergies No Known Allergies [No Known Allergies*] Allergy (Verified 04/12/24 09:56) Medication List - Last Reconciled 04/12/24 by Augusta Klein PA-C apixaban (Eliquis) 5 mg PO BID atorvastatin 80 mg PO DAILY cilostazol 50 mg PO BID clonazepam 0.5 mg PO BID clopidogrel 75 mg PO DAILY dextroamphetamine-amphetamine 7.5 mg 1 tab PO DAILY docusate sodium 100 mg PO DAILY dronedarone (Multaq) 400 mg PO BID furosemide 40 mg PO DAILY gabapentin 100 - 300 mg PO BEDTIME PRN lisinopril 40 mg PO DAILY melatonin 3 mg PO BEDTIME PRN metoprolol tartrate 25 mg See Protocol PO BID morphine 15 mg PO Q4H PRN oxycodone mg PO quetiapine 25 mg PO BID sertraline 50 mg PO DAILY tamsulosin 0.4 mg PO DAILY HPI HPI FC- Right clavicle fracture s/p fall: Details: 79-year-old male who presents to the office today for an evaluation of right clavicle injury s/p fall about 3 weeks ago. He reports he felt dizzy while going down and fell 7-8 steps down the stairs. He was seen at ER where x-rays were performed and he was referred to our office. He currently states he has mild soreness as well as intermittent pain in his clavicle that fluctuates in intensity. He finds relief with oxycodone 5 mg. He finds no relief with Tylenol. [facility] Medical History Hypersomnia Snoring Neuropathy Atherosclerotic cardiovascular disease History of alcohol abuse History of COVID-19 On beta jose at home COPD (chronic obstructive pulmonary disease) On anticoagulant therapy History of atrial fibrillation PVD (peripheral vascular disease) Renal cell carcinoma Hypertension Depression Anxiety Diverticulitis Surgical History H/O cardiac catheterization History of colectomy S/P femoral-femoral bypass surgery Social History (Updated 04/12/24 @ 09:56 by ALTON Timmons) Household Members: Significant Other Housing: House Do you presently have visiting nurse or other home services: No Alcohol intake: never Patient Tobacco Use Status: Former Tobacco user Tobacco use type: Cigarette Substance Use Type: Marijuana Advance Directives Date on File: 06/09/21 service: Yes Current occupational status: retired Current occupation: right hand dominant Review of Systems Const All systems reviewed & are unremarkable except as noted in HPI and below Physical Exam Vital Signs: BMI result Body Mass Index 32.5 Const General: cooperative, healthy appearing, comfortable, no acute distress, well developed and alert Orientation/consciousness: patient oriented x3 HEENT Head: Yes normal to inspection, Yes normocephalic and Yes atraumatic Eyes General: appearance normal, both eyes and all related structures Resp Effort & Inspection: normal respiratory effort and able to speak in complete sentences Cardio Rate: regular rate Peripheral pulses: Peripheral pulses 2+ throughout GI Palpation (GI): Soft to palpation Skin Lesions: no lesions Rashes: no rashes Neuro General: patient oriented x3 Extrem Other: Right clavicle: Skin is intact. No skin tenting or skin breakdown. There is no bony deformity , mild tenderness to palpation over the fracture site. Anterior deltoid sensation is intact. Full ROM of elbow with no pain. No pain along the forearm. Negative squeeze test. No pain along the distal radius. NVI. Office Procedures AMB Fracture Care Fracture Billing Code: Fracture Billing Code Results Reviewed Results Reviewed: Xrays were obtained in the office today and personally reviewed by me of the right clavicle show minimally displaced fracture at the distal clavcicle Assessment & Plan Assessment & Plan (1) Right clavicle fracture: Code(s): S42.001A - Fracture of unspecified part of right clavicle, initial encounter for closed fracture Category: Medical Qualifiers: Encounter type: initial encounter Clavicle location: lateral end Fracture type: closed Fracture alignment: displaced Qualified Code(s): S42.031A - Displaced fracture of lateral end of right clavicle, initial encounter for closed fracture Plan He will discontinue the use of his sling. He can perform activities below shoulder height. No heavy lifting more than a cellphone. I would like to see him back in 6 weeks with new x-rays. He did request a refill of oxycodone which we want him to ween out of as he is 4 weeks out of injury which he agrees with. He will see us back as planned. Orders: Orders XR clavicle RT Today S42.009A - Fracture of unspecified part of unspecified clavicle, initial encounter for closed fracture Patient Instructions: Scribed for Augusta Klein PA-C, by Deandre Padron biomedical equipment specialist, on 04/12/2024 at 10:00 AM EST.? I, Augusta Klein PA-C, have personally reviewed and agree with the information entered by the scribe. Coding Level of Care Code New Pt Level 3 (08747) Complex EM visit Add On G2211 Diagnoses Closed displaced fracture of acromial end of right clavicle, initial encounter S42.031A Encounter type: initial encounter Clavicle location: lateral end Fracture type: closed Fracture alignment: displaced CPT Codes Fracture Care - Fracture Billing Code: Fracture Billing Code ([id number])
[2024-04-12 09:56] VITALS: BMI 32.5
== END 2024-04-12 10:21 | disposition home or self-care (01) ==
PROVIDERS: PCP Internal Medicine; Visit Provider Physician Assistant
DX: S42.031A Displaced fracture of lateral end of right clavicle, initial encounter for closed fracture (principal)
CPT/HCPCS: 99203; G2211

== ENCOUNTER 2024-04-12 10:30 | Outpatient (AMB) | payer MEDICARE, SELFPAY ==
--- NOTE | 2024-04-12 10:45 | AM.OFFVISNUR ---
Intake Visit Reasons: EKG pt on Multaq Allergies No Known Allergies [No Known Allergies*] Allergy (Verified 04/12/24 09:56) Nursing Note pt is here for nurse visit with ekg pt is on dronedarone 400 mg PO BID ekg left on desk of dr best for review Office Procedures EKG [id number], Complete
== END 2024-04-12 11:51 | disposition home or self-care (01) ==
PROVIDERS: PCP Internal Medicine; Visit Provider Internal Medicine
DX: Z51.81 Encounter for therapeutic drug level monitoring (principal)
CPT/HCPCS: 93010

== ENCOUNTER → 2024-04-15 14:04 | Outpatient (REF) | payer MEDICARE, SELFPAY | LOC: HO.CARD 14:04 | PROVIDERS: PCP Internal Medicine; Visit Provider Internal Medicine Cardiovascular Disease | DX: I48.92 Unspecified atrial flutter (principal) | CPT/HCPCS: 93270 ==

== ENCOUNTER → 2024-04-15 14:06 | Outpatient (BNV) | payer MEDICARE, SELFPAY | PROVIDERS: PCP Internal Medicine; Visit Provider Internal Medicine | DX: I47.10 Supraventricular tachycardia, unspecified (principal) | CPT/HCPCS: 93272 ==

== ENCOUNTER 2024-04-19 13:12 | Outpatient (AMB) | payer MEDICARE, SELFPAY ==
--- OUTSIDE RECORDS SUMMARY | 2024-04-19 13:14 | XMS_ITS | Clinical Summary ---
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 Name Role Phone MARCO RAMIREZ, POOJA Unavailable Unavaileddie GAVIN RN, DAGOBERTO Unavailable Unavailab abraham MANTILLA LPN, YORDAN Unavailable Unavail able BARBARA PT, COURTNEY Unavailable Unavailable SHERYL SONG PLUGGER, JANETT Unavailable Unavailable SPAFFORD OT, DAGO Unavailable Unavailable CARRION GENERAL WORKER, ANTONIO Unavailable Unavailable CONDINO FERNY/CALZADA, ANGUS Unavailable Unav ailable Payers Payer Name Policy Type Policy Number Effective Date Expira tion Date [id number] Problems Condition Name Condition Details Condition Category [...] 2023-05 00:00: 00 ATHSCL HEART DISEASE OF [place] CORONARY ARTERY W/O ANG PCTRS Active 05-01 00:00: 00 MIXED HYPERLIPIDEM IA Active 05-01 00:00: 00 UNSPECIFIED MOOD [AFFECTIVE] DISORDER Active 05-01 00:00: 00 DVRTCLOS OF INTEST, PART UNSP, 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 05-01 00:00: 00 BENIGN PROSTATIC HYPERPLASIA WITHOUT LOWER URINRY TRACT SYMP Active 05-01 00:00: 00 ALCOHOL ABUSE, IN REMISSION Active 05-01 00:00: 00 CARE HOME (CURRENT) USE OF ANTICOAGULAN TS Active 2023-05 [...] immediate release tablet 2023-05 00:00: 00 Yes [id number] PAIN 15 mg EVERY 6 HOURS NEEDED 15 mg EVERY 6 HOURS NEEDED (route: oral) Med Classific ation: Analgesic , Anti-infl ammatory or Antipyret ic clonazepam 0.5 mg tablet 2023-05 00:00: 00 Yes [id number] ANXIETY 0.5 mg 2 TIMES DAILY 0.5 mg 2 TIMES DAILY (route: oral) Med Classific ation: Central Nervous System Agents lisinopril 40 mg tablet 2023-05 00:00: 00 03-21 23:59 :00 No [id number] CAD 40 mg DAILY 40 mg DAILY (route: oral) Med Classific ation: Cardiovas cular Therapy Agents atorvastati n 80 mg tablet 2023-05 00:00: 00 Yes [id number] HYPERTENSIO N 80 mg DAILY 80 mg DAILY (route: oral) Med Classific ation: Cardiovas cular Therapy Agents cilostazol 50 mg tablet 2023-05 00:00: 00 Yes [id number] HYPERTENSIO N 50 mg 2 TIMES DAILY 50 mg 2 TIMES DAILY (route: oral) Med Classific ation: Hematolog ical Agents clopidogrel 75 mg tablet 2023-05 00:00: 00 03-21 23:59 :00 No [id number] CORONARY ARTERY DISEASE 75 mg DAILY 75 mg DAILY (route: oral) Med Classific ation: Hematolog ical Agents Eliquis 5 mg tablet 2023-05 00:00: 00 Yes [id number] ANTI ARRHYTHMIC 5 mg 2 TIMES DAILY 5 mg 2 TIMES DAILY (route: oral) Med Classific ation: Hematolog ical Agents furosemide 40 mg tablet 2023-05 00:00: 00 03-21 23:59 :00 No [id number] BPH 40 mg DAILY 40 mg DAILY (route: oral) Alternate Route: INTRA-MUS CULAR. Med Classific ation: Cardiovas cular Therapy Agents metoprolol tartrate 50 mg tablet 2023-05 00:00: 00 03-22 23:59 :00 No [id number] CAD 50 mg DAILY 50 mg DAILY (route: oral) Med Classific ation: Cardiovas cular Therapy Agents quetiapine 25 mg tablet 2023-05 00:00: 00 Yes [id number] MOOD STABILIZER 25 mg 2 TIMES DAILY 25 mg 2 TIMES DAILY (route: oral) Med Classific ation: Central Nervous System Agents sertraline 50 mg tablet 2023-05 00:00: 00 Yes [id number] MOOD STABILIZER 50 mg DAILY 50 mg DAILY (route: oral) Med Classific ation: Central Nervous System Agents tamsulosin 0.4 mg capsule 2023-05 00:00: 00 Yes [id number] BPH 0.4 mg DAILY 0.4 mg DAILY (route: oral) Med Classific ation: Genitouri nary Therapy docusate sodium 100 mg tablet 2023-05 00:00: 00 Yes [id number] CONSTIPATIO N 100 mg DAILY 100 mg DAILY (route: oral) Med Classific ation: Gastroint estinal Therapy Agents gabapentin 100 mg capsule 2023-05 00:00: 00 Yes [id number] PAIN 1-3 capsule BEDTIME 1-3 capsule BEDTIME (route: oral) Med Classific ation: Central Nervous System Agents metoprolol tartrate 25 mg tablet 2023-05 00:00: 00 03-27 16:09 :43.1 53 No [id number] HYPERTENSIO N 25 mg 2 TIMES DAILY 25 mg 2 TIMES DAILY (route: oral) Med Classific ation: Cardiovas cular Therapy Agents Multaq 400 mg tablet 2023-05 00:00: 00 Yes [id number] ANTIARRHYTH MICHAEL 400 mg 2 TIMES DAILY 400 mg 2 TIMES DAILY (route: oral) Med Classific ation: Cardiovas cular Therapy Agents furosemide 40 mg tablet 2023-05 00:00: 00 Yes [id number] edema 1 tablet DAILY 1 tablet DAILY (route: oral) Med Classific ation: Cardiovas cular Therapy Agents dextroamphe tamine-amph etamine 7.5 mg tablet 2023-05 00:00: 00 Yes [id number] attention 1 tablet DAILY 1 tablet DAILY (route: oral) Med Classific ation: Central Nervous System Agents metoprolol tartrate 25 mg tablet 2023-05 00:00: 00 Yes [id number] heart rate 0.5 tablet 2 TIMES DAILY 0.5 tablet 2 TIMES DAILY (route: oral) Med Classific ation: Cardiovas cular Therapy Agents cephalexin 500 mg capsule 2023-05 00:00: 00 04-10 23:59 :00 No [id number] CELLULITIS LLL 500 mg 4 TIMES DAILY 500 mg 4 TIMES DAILY (route: oral) Med Classific ation: Anti-Infe ctive Agents Vital Signs Vital Name Observation Time Observation Value Commen ts Temperature 2024-04-17 13:01:00.000 97.1 [degF] Temperature 2024-04-16 10:03:00.000 98.3 [degF] Temperature 2024-04-11 13:10:00.000 97.2 [degF] Temperature 2024-04-09 [...] kg/m2 Height 2024-03-22 10:58:00.000 72 [in_us] Pulse 2024-04-17 13:01:00.000 60 /min Pulse 2024-04-16 10:03:00.000 60 /min Pulse 2024-04-11 13:10:00.000 80 /min Pulse 2024-04-09 09:50:00.000 66 /min Pulse 2024-04-09 09:01:00.000 60 /min Pulse 2024-04-04 11:04:00.000 60 /min Pulse 2024-04-02 12:17:00.000 68 /min Pulse 2024-04-02 12:11:00.000 68 /min Pulse 2024-04-02 09:07:00.000 60 /min Pulse 2024-03-30 14:57:00.000 78 /min Pulse 2024-03-29 13:07:00.000 58 /min Pulse 2024-03-26 12:59:00.000 80 /min Pulse 2024-03-22 10:58:00.000 103 /min O2 Saturation (%) 2024-04-17 13:01:00.000 97 % O2 Saturation (%) 2024-04-16 10:09:00.000 95 % O2 Saturation (%) 2024-04-09 09:01:00.000 99 % O2 Saturation (%) 2024-04-04 11:04:00.000 98 % O2 Saturation (%) 2024-04-02 12:11:00.000 98 % O2 Saturation (%) 2024-03-22 11:16:00.000 92 % Respirations 2024-04-17 13:01:00.000 16 /min Respirations 2024-04-16 10:03:00.000 18 /min Respirations 2024-04-11 13:10:00.000 18 /min Respirations 2024-04-09 09:50:00.000 18 /min Respirations 2024-04-09 09:01:00.000 18 /min Respirations 2024-04-04 11:04:00.000 18 /min Respirations 2024-04-02 12:17:00.000 18 /min Respirations 2024-04-02 12:11:00.000 18 /min Respirations 2024-04-02 09:07:00.000 18 /min Respirations 2024-03-30 14:57:00.000 18 /min Respirations 2024-03-29 13:07:00.000 18 /min Respirations 2024-03-26 12:59:00.000 18 /min Respirations 2024-03-22 10:58:00.000 16 /min Weight (lbs) 2024-04-17 13:01:00.000 245.6 [lb_av] Weight (lbs) 2024-04-16 10:09:00.000 250.6 [lb_av] Weight (lbs) 2024-04-09 09:01:00.000 248.2 [lb_av] Weight (lbs) 2024-04-04 11:06:00.000 242.4 [lb_av] Weight (lbs) 2024-03-29 13:08:00.000 241 [lb_av] Weight (lbs) 2024-03-22 10:58:00.000 234 [lb_av] Systolic Blood Pressure 2024-04-17 13:01:00.000 120 mm [Hg] Systolic Blood Pressure 2024-04-16 10:03:00.000 138 mm [Hg] Systolic Blood Pressure 2024-04-11 13:10:00.000 112 mm [...] 10:58:00.000 123 mm [Hg] Diastolic Blood Pressure 2024-04-17 13:01:00.000 80 mm [Hg] Diastolic Blood Pressure 2024-04-16 10:03:00.000 74 mm [Hg] Diastolic Blood Pressure 2024-04-11 13:10:00.000 [...] TION MANAGEMENT; RN TO ASSESS AND TEACH, ALARM FIELD TECHNICIAN/PAPERBOARD MACHINE OPERATOR TO OBSERVE AND TEACH ON EDUCATION AND INTERVENTION TO IDENTIFY FALL RISK FACTORS SUCH MEDICATIONS THAT MAY CAUSE DIZZINESS, CHRONIC DISEASES, PSYCHOLOGICAL FACTORS, AND EMPOWER/EDUCATE PATIENT/CAREGIVER TO MINIMIZE FALL RISK. [code = FALL REDUCTION MANAGEMENT; RN TO ASSESS AND TEACH, ALARM FIELD TECHNICIAN/PAPERBOARD MACHINE OPERATOR TO OBSERVE AND TEACH ON EDUCATION AND INTERVENTION TO IDENTIFY FALL RISK FACTORS SUCH MEDICATIONS THAT MAY CAUSE DIZZINESS, CHRONIC DISEASES, PSYCHOLOGICAL FACTORS, AND EMPOWER/EDUCATE PATIENT/CAREGIVER TO MINIMIZE FALL RISK.] Future Scheduled Test RN TO OBSE RVE, ASSESS, EVALUATE, AND DEVELOP AN INDIVIDUALIZED PLAN OF CARE. AGENCY MAY ACCEPT ORDERS FROM CONSULTING PHYSICIANS . RN TO OBSERVE AND ASSESS, ALARM FIELD TECHNICIAN/PAPERBOARD MACHINE OPERATOR TO OBSERVE FOR RISK FOR FALLS AND INSTRUCT IN FALL PREVENTION, HOME SAFETY, MEDICATION MANAGEMENT, INFECTION PREVENTION, AND NUTRITION MANAGEMENT. RN/ALARM FIELD TECHNICIAN/PAPERBOARD MACHINE OPERATOR NURSE MAY PERFORM O2 SATURATION LEVEL ON ADMISSION AND PRN FOR FOR RN TO ASSESS/ALARM FIELD TECHNICIAN TO OBSERVE PATIENT, WITH NOTIFICATION TO THE PHYSICIAN IF SATURATION IS 90% IN THE ABSENCE OF MORE SPECIFIC PARAMETERS FROM THE PHYSICIAN. AGENCY MAY PERFORM A RESUMPTION OF CARE VISIT FOLLOWING ANY HOSPITAL ADMISSION. RN/ALARM FIELD TECHNICIAN/PAPERBOARD MACHINE OPERATOR TO MONITOR CO-MORBID CONDITIONS LISTED ON THE PLAN OF CARE AND ANY NEW CONDITIONS THAT PRESENT THEMSELVES DURING THIS EPISODE TO IDENTIFY CHANGES AND INTERVENE TO MINIMIZE COMPLICATIONS. [code = RN TO OBSERVE, ASSESS, EVALUATE, AND DEVELOP AN INDIVIDUALIZED PLAN OF CARE. AGENCY MAY ACCEPT ORDERS FROM CONSULTING PHYSICIANS . RN TO OBSERVE AND ASSESS, ALARM FIELD TECHNICIAN/PAPERBOARD MACHINE OPERATOR TO OBSERVE FOR RISK FOR FALLS AND INSTRUCT IN FALL PREVENTION, HOME SAFETY, MEDICATION MANAGEMENT, INFECTION PREVENTION, AND NUTRITION MANAGEMENT. RN/ALARM FIELD TECHNICIAN/PAPERBOARD MACHINE OPERATOR NURSE MAY PERFORM O2 SATURATION LEVEL ON ADMISSION AND PRN FOR FOR RN TO ASSESS/ALARM FIELD TECHNICIAN TO OBSERVE PATIENT, WITH NOTIFICATION TO THE PHYSICIAN IF SATURATION IS 90% IN THE ABSENCE OF MORE SPECIFIC PARAMETERS FROM THE PHYSICIAN. AGENCY MAY PERFORM A RESUMPTION OF CARE VISIT FOLLOWING ANY HOSPITAL ADMISSION. RN/ALARM FIELD TECHNICIAN/PAPERBOARD MACHINE OPERATOR TO MONITOR CO-MORBID CONDITIONS LISTED ON THE PLAN OF CARE AND ANY NEW CONDITIONS THAT PRESENT THEMSELVES DURING THIS EPISODE TO IDENTIFY CHANGES AND INTERVENE TO MINIMIZE COMPLICATIONS.] Future Scheduled Test PAIN MANAG EMENT; RN TO ASSESS AND TEACH, PAPERBOARD MACHINE OPERATOR/ALARM FIELD TECHNICIAN TO OBSERVE AND TEACH AND PROVIDE EDUCATION ON PAIN MANAGEMENT TECHNIQUES. [code = PAIN MANAGEMENT; RN TO ASSESS AND TEACH, PAPERBOARD MACHINE OPERATOR/ALARM FIELD TECHNICIAN TO OBSERVE AND TEACH AND PROVIDE EDUCATION ON PAIN MANAGEMENT TECHNIQUES.] Future Scheduled Test PRN VISITS ; NUMBER OF RN/ALARM FIELD TECHNICIAN/PAPERBOARD MACHINE OPERATOR VISITS:2 RN/ALARM FIELD TECHNICIAN/PAPERBOARD MACHINE OPERATOR TO PERFORM: MED EDUCATION/RECONCILIATION FOR THE FOLLOWING REASONS: MED COMPLICATIONS [code = PRN VISITS; NUMBER OF RN/ALARM FIELD TECHNICIAN/PAPERBOARD MACHINE OPERATOR VISITS:2 RN/ALARM FIELD TECHNICIAN/PAPERBOARD MACHINE OPERATOR TO PERFORM: MED EDUCATION/RECONCILIATION FOR THE FOLLOWING REASONS: MED COMPLICATIONS] Future Scheduled Test RISK FOR H OSPITALIZATION; RN TO ASSESS/TEACH, PAPERBOARD MACHINE OPERATOR/ALARM FIELD TECHNICIAN TO OBSERVE/TEACH PATIENT/CAREGIVER ON RISK FOR HOSPITALIZATION/EMERGENCY ROOM VISITS, TEACH SIGNS AND SYMPTOMS THAT PUT PATIENT AT RISK, WHEN TO NOTIFY NURSE/PHYSICIAN OF COMPLICATIONS/DECLINE, AND WHEN TO CALL 911. [code = RISK FOR HOSPITALIZATION; RN TO ASSESS/TEACH, PAPERBOARD MACHINE OPERATOR/ALARM FIELD TECHNICIAN TO OBSERVE/TEACH PATIENT/CAREGIVER ON RISK FOR HOSPITALIZATION/EMERGENCY ROOM VISITS, TEACH SIGNS AND SYMPTOMS THAT PUT PATIENT AT RISK, WHEN TO NOTIFY NURSE/PHYSICIAN OF COMPLICATIONS/DECLINE, AND WHEN TO CALL 911.] Future Scheduled Test CARDIOVASC ULAR SYSTEM; RN TO ASSESS/TEACH, ALARM FIELD TECHNICIAN/PAPERBOARD MACHINE OPERATOR TO OBSERVE/TEACH RELATED TO ALTERED CARDIOVASCULAR STATUS TO MINIMIZE COMPLICATIONS AND REDUCE HOSPITALIZATION. [code = CARDIOVASCULAR SYSTEM; RN TO ASSESS/TEACH, ALARM FIELD TECHNICIAN/PAPERBOARD MACHINE OPERATOR TO OBSERVE/TEACH RELATED TO ALTERED CARDIOVASCULAR STATUS TO MINIMIZE COMPLICATIONS AND REDUCE HOSPITALIZATION.] Future Scheduled Test HYPOTENSIO N MANAGEMENT; RN TO ASSESS AND TEACH/ ALARM FIELD TECHNICIAN /PAPERBOARD MACHINE OPERATOR TO OBSERVE AND TEACH WARNING SIGNS AND SYMPTOMS TO AVOID HOSPITALIZATION. [code = HYPOTENSION MANAGEMENT; RN TO ASSESS AND TEACH/ ALARM FIELD TECHNICIAN /PAPERBOARD MACHINE OPERATOR TO OBSERVE AND TEACH WARNING SIGNS AND SYMPTOMS TO AVOID HOSPITALIZATION. ] Future Scheduled Test ARRHYTHMIA MANAGEMENT; RN TO ASSESS AND TEACH, ALARM FIELD TECHNICIAN/PAPERBOARD MACHINE OPERATOR TO OBSERVE AND TEACH WARNING SIGNS AND SYMPTOMS TO AVOID HOSPITALIZATION. [code = ARRHYTHMIA MANAGEMENT; RN TO ASSESS AND TEACH, ALARM FIELD TECHNICIAN/PAPERBOARD MACHINE OPERATOR TO OBSERVE AND TEACH WARNING SIGNS AND [...] End Date/Time Encounter Type Admission Type Attending [facility] Care Facility Care Department Encounter ID Discharge Date Discharge Status Discharge Condition Discharge Reason Percent Goals Met 2024-03-22 00:00:00 2024-05-20 00:00:00 Outpatient NEW ADMISSION DAGOBERTO GAVIN [facility] [id number] 15.69
--- NOTE | 2024-04-19 13:15 | MHC.OFFVIS ---
Vital Signs 04/19/24 13:17 04/19/24 13:28 04/19/24 13:32 Height 6 ft Weight 250 lb 14.177 oz BMI 34.0 BP 200/95 H 190/88 H 204/94 H Blood Pressure Location Lt brachial Rt brachial Position Sitting Standing Supine Pulse 56 103 H 58 Intake Visit Reasons: s/p [facility] per DC Tech Writer Required: No Allergies No Known Allergies [No Known Allergies*] Allergy (Verified 04/19/24 13:20) Medication List - Last Reconciled 04/19/24 by ARNOL Aviles apixaban (Eliquis) 5 mg PO BID atorvastatin 80 mg PO DAILY cilostazol 50 mg PO BID clonazepam 0.5 mg PO BID dextroamphetamine-amphetamine 7.5 mg 1 tab PO DAILY docusate sodium 100 mg PO DAILY dronedarone (Multaq) 400 mg PO BID furosemide 40 mg PO DAILY gabapentin 100 - 300 mg PO BEDTIME PRN hydralazine 25 mg PO BID 30 days melatonin 3 mg PO BEDTIME PRN metoprolol tartrate 25 mg See Protocol PO BID oxycodone mg PO quetiapine 25 mg PO BID sertraline 50 mg PO DAILY tamsulosin 0.4 mg PO DAILY HPI HPI s/p [facility] per DC: Details: Alex is a 79-year-old male past medical history of hypertension, hyperlipidemia, peripheral vascular disease, dilated ascending aorta, coronary artery disease, lad stent, atrial flutter, SVT who was recently admitted for SVT, hypotension, CATALINO. His Lasix, lisinopril, Plavix were stopped. His metoprolol dose was reduced and he was started on Multaq. He was continued on Eliquis. Today he reports that he has been doing better since his hospital discharge. He is no longer experiencing light-headedness. He has some minor discomfort from his fractured clavicle. He has no chest discomfort at rest or with activity. He has no concerning shortness of breath. He is not feeling heart palpitations. He does have bilateral leg edema and weight gain. He has been increasing his physical. He does not know his medications, he takes what his [facility] nurse gives him. No bleeding issues reported. Came to this appointment alone, driving. [facility] Medical History Coronary artery disease Hypersomnia Snoring Neuropathy Atherosclerotic cardiovascular disease History of alcohol abuse History of COVID-19 On beta jose at home COPD (chronic obstructive pulmonary disease) On anticoagulant therapy History of atrial fibrillation PVD (peripheral vascular disease) Renal cell carcinoma Hypertension Depression Anxiety Diverticulitis Surgical History H/O cardiac catheterization History of colectomy S/P femoral-femoral bypass surgery Social History Household Members: Significant Other Housing: House Do you presently have visiting nurse or other home services: No Alcohol intake: never Patient Tobacco Use Status: Former Tobacco user Tobacco use type: Cigarette Substance Use Type: Marijuana Advance Directives Date on File: 06/09/21 service: Yes Current occupational status: retired Current occupation: right hand dominant Review of Systems Const All systems reviewed & are unremarkable except as noted in HPI and below ENT Denies dizziness Card Denies chest pain, Denies chest pain at rest, Denies chest pain with activity, Denies rapid heart rate, Denies pedal edema, Denies edema, Denies leg edema, Denies lightheadedness, Denies palpitations, Denies dyspnea, Denies dyspnea on exertion and Denies orthopnea Resp Denies cough, Denies dyspnea and Denies dyspnea on exertion GI Denies hematochezia and Denies change in stool character Musc Details: minor soreness from clavical fracture Denies abnormal gait, Denies limited range of motion, Denies muscle cramps, Denies muscle weakness, Denies numbness, Denies radiating pain into limb, Denies stiffness and Denies tingling Neuro Denies abnormal gait, Denies dizziness, Denies numbness and Denies tingling Endo Denies palpitations Physical Exam Vital Signs: BMI result Body Mass Index 34.0 Const General: cooperative, healthy appearing, comfortable and no acute distress Orientation/consciousness: patient oriented x3 Neck Neck: Yes normal visual inspection and Yes no JVD Resp Effort & Inspection: normal respiratory effort Auscultation: clear to auscultation bilaterally, no rales, no rhonchi and no wheezes Cardio Jugular venous distension: no JVD Rate: regular rate Rhythm: regular rhythm Heart sounds: S1 normal heart sound present, S2 normal heart sound present, no murmurs and no rubs Neuro General: patient oriented x3 Extrem Other: 2+ pitting edema from mid calf to ankles Psych Appearance: grossly normal Mental Status: mental status grossly normal Speech and movement: Normal speech and movement present Office Procedures EKG Details: Today, read by me, normal sinus rhythm, septal infarct, unchanged from prior EKG, rate 61, QTC 475. - disregard 2nd entry below. [id number], Complete EKG Details: entered in error - Bill for 1 EKG only [id number], Complete Assessment & Plan Assessment & Plan (1) SVT (supraventricular tachycardia): Code(s): I47.10 - Supraventricular tachycardia, unspecified Category: Medical Plan: [facility] [place] on 03/12 - for lightheadedness and SVT that was treated with IV metoprolol, 03/14 for lightheadedness without significant findings. [facility] [place] 03[place]17 after having lightheadedness, fall down the stairs at home and sustaining a distal clavicle fracture. He was seen in the office here on 03/18/2024 with weakness, hypotension, tachycardia. He was sent to the ER for evaluation an EKG showed supraventricular tachycardia and he was treated with rate slowing medication and he converted. During his admission he did have recurrent SVT and he was started on Multaq 400 mg b.i.d.. His metoprolol dose was reduced from 50 mg b.i.d. down to 25 mg b.i.d.. An outpatient EKG was done 04/12/2024 which shows possible ectopic atrial bradycardia, rate 59. Today he reports feeling generally well. He has not noticed any recurrent heart palpitations since his hospital discharge. A repeat EKG done today is showing normal sinus rhythm, septal infarct, which is not new, rate 61, QTC 475 milliseconds. Continue metoprolol for heart rate control. Continue Multaq for rhythm control. Vagal maneuvers reviewed. Emergency care if needed for sustained rapid palpitations. He is currently wearing a Holter monitor. Cardiology follow-up 6 weeks, sooner if needed. (2) Hypotension: Code(s): I95.9 - Hypotension, unspecified Category: Medical Plan: Patient was hypotensive on last visit. He was sent to the ER for hydration, management. He was noted to have CATALINO with creatinine 2.18. His lisinopril and Lasix were stopped. Prior to discharge his creatinine had improved to 1.1. (3) Hypertension: Code(s): I10 - Essential (primary) hypertension Category: Medical Qualifiers: Hypertension type: renovascular hypertension Qualified Code(s): I15.0 - Renovascular hypertension Plan: History of hypertension. His lisinopril and Lasix were stopped at the time of his last discharge. His Lasix was restarted earlier this week due to reports of weight gain and leg edema. On exam today he has significant hypertension, asymptomatic. He previously had CATALINO so will hold off on restart of lisinopril at this time. Will avoid the use of amlodipine as he already has significant lower leg edema. Will start on hydralazine 25 mg b.i.d.. Continue metoprolol and Lasix. Will plan to call his visiting nurse in 1 week to re-evaluate his edema, blood pressures. May need to further titrate hydralazine if blood pressures are not well controlled. (4) Paroxysmal atrial fibrillation: Code(s): I48.0 - Paroxysmal atrial fibrillation Category: Medical Plan: History of paroxysmal atrial fibrillation. No recent known reoccurrence. He is on metoprolol for heart rate control. He is on Eliquis for anticoagulation. No bleeding issues reported. (5) Coronary artery disease: Code(s): I25.10 - Atherosclerotic heart disease of [place] coronary artery without angina pectoris Category: Medical Plan: History of coronary artery disease with LAD stent, 05/05/2022. Last echocardiogram done 02/25/2022 show EF 55-60%, unable to assess for wall motion abnormality, ascending aorta 4.1 cm. He denies chest discomfort or shortness of breath at this visit. He is not on aspirin as he is on Eliquis. He is on metoprolol, high-dose atorvastatin with ideal LDL goal less than 70. No recent lipid profile in our system. Order placed and patient notified. (6) S/P cardiac cath: Comment: 05/05/2022, left main mild disease, lad proximal 65% stenosis, 1st diagonal 100% stenosis, left circumflex minimal irregularities, RCA mid 50% stenosis, right PDA 50% stenosis, stent placed to the proximal LAD Code(s): Z98.890 - Other specified postprocedural states Category: Surgical Plan: As above (7) PVD (peripheral vascular disease): Code(s): I73.9 - Peripheral vascular disease, unspecified Category: Medical Plan: He reports of history of stent in his right femoral region, fem to fem bypass on the left. He has ongoing issues with numbness in his lower extremities. He normally ambulates steadily. He has been followed by Dr. Mendoza. He had been on Plavix which was stopped during last hospitalization. He is on Eliquis. Plan Time spent on chart review, documentation, interview and assessment Orders: Orders Lipid Panel Today I25.10 - Atherosclerotic heart disease of [place] coronary artery without angina pectoris AMB EKG-In Office Today I48.0 - Paroxysmal atrial fibrillation Medications: New hydralazine New med for BP 25 mg PO BID 30 days 60 tabs 4RF Coding Level of Care Code Est Pt Level 4 (08085) Complex EM visit Add On G2211 Diagnoses SVT (supraventricular tachycardia) I47.10 Hypotension I95.9 Renovascular hypertension I15.0 Hypertension type: renovascular hypertension Paroxysmal atrial fibrillation I48.0 Coronary artery disease I25.10 S/P cardiac cath Z98.890 PVD (peripheral vascular disease) I73.9 CPT Codes EKG - CPT: [id number], Complete ([id number]) EKG - CPT: 62729-[id number], Complete ([id number]) Time Spent (min) 36
[2024-04-19 13:17] VITALS: BP 200/95; PULSE 56; BMI 34.0
[2024-04-19 13:28] VITALS: BP 190/88; PULSE 103
[2024-04-19 13:32] VITALS: BP 204/94; PULSE 58
== END 2024-04-19 14:13 | disposition home or self-care (01) ==
PROVIDERS: PCP Internal Medicine; Visit Provider Nurse Practitioner Family
DX: I47.10 Supraventricular tachycardia, unspecified (principal); I11.9 Hypertensive heart disease without heart failure; I25.10 Atherosclerotic heart disease of native coronary artery without angina pectoris; I48.0 Paroxysmal atrial fibrillation; R94.31 Abnormal electrocardiogram [ECG] [EKG]; Z98.890 Other specified postprocedural states; I73.9 Peripheral vascular disease, unspecified; N17.9 Acute kidney failure, unspecified; I95.9 Hypotension, unspecified
CPT/HCPCS: 93010; 99214; G2211

== ENCOUNTER → 2024-04-19 13:12 | Outpatient (BNVA) | payer MEDICARE, SELFPAY | PROVIDERS: PCP Internal Medicine; Visit Provider Nurse Practitioner Family | DX: I15.0 Renovascular hypertension (principal); I73.9 Peripheral vascular disease, unspecified; I25.10 Atherosclerotic heart disease of native coronary artery without angina pectoris; I47.10 Supraventricular tachycardia, unspecified; I95.9 Hypotension, unspecified; I48.0 Paroxysmal atrial fibrillation; E78.5 Hyperlipidemia, unspecified; Z79.01 Long term (current) use of anticoagulants; Z98.890 Other specified postprocedural states; Z79.899 Other long term (current) drug therapy | CPT/HCPCS: 93005; 99212 ==

== ENCOUNTER 2024-05-07 10:15 | Outpatient (REF) | payer MEDICARE, SELFPAY ==
--- NOTE | ~2024-05-07 | XR_ITS ---
EXAMINATION: XR ABDOMEN KUB CLINICAL INDICATION: kidney stone COMPARISON: X-ray dated July 02, 2015 TECHNIQUE: AP view of the abdomen. FINDINGS: Multiple vascular clips in the left hemiabdomen. Multiple coils overlapping the abdomen and pelvis. No intestinal obstruction pattern. Multilevel thoracolumbar spondylosis. Patient's large body habitus/obesity. XR/XR KUB IMPRESSION: Nephrolithiasis cannot be excluded based upon this x-ray. Electronically signed by: Kalin Quezada MD 05/07/2024 10:45 AM [facility]
== END 2024-05-07 10:16 | disposition home or self-care (01) ==
LOC: HO.XRAY 10:15
PROVIDERS: PCP Internal Medicine; Visit Provider Student in an Organized Health Care Education/Training Program
DX: N20.0 Calculus of kidney (principal)
CPT/HCPCS: 74018

== ENCOUNTER → 2024-05-07 10:21 | Outpatient (BNV) | payer MEDICARE, SELFPAY | PROVIDERS: PCP Internal Medicine; Visit Provider Radiology Diagnostic Radiology | DX: N20.0 Calculus of kidney (principal) | CPT/HCPCS: 74018 ==

== ENCOUNTER 2024-05-20 09:19 | Outpatient (REF) | payer MEDICARE, SELFPAY ==
--- NOTE | ~2024-05-20 | XR_ITS ---
CLINICAL HISTORY: S42.009A - Fracture of unspecified part of unspecified clavicle, initial... 2 views right clavicle Comparison: 04/12/2024 Findings: No dislocations. No significant arthritic change. No radiopaque foreign body. Impression: There is a healing fracture in satisfactory alignment with ongoing callus formation involving the distal right clavicle. Acromioclavicular joint is in good alignment. Glenohumeral joint is unremarkable. This document has been electronically signed by: Eyad Ramos MD on 05/20/2024 21:42:56
--- OUTSIDE RECORDS SUMMARY | 2024-05-21 09:58 | XMS_ITS | Clinical Summary ---
Author Organization Unknown Care Team Providers Care Jump Roll Operator Name Role Phone MARCO RAMIREZ, POOJA Unavailable Unavaileddie GAVIN RN, DAGOBERTO Unavailable Unavailab abraham MANTILLA LPN, YORDAN Unavailable Unavail able BARBARA PT, COURTNEY Unavailable Unavailable SHERYL AUTO BODY WORKER, JANETT Unavailable Unavailable SPAFFORD OT, DAGO Unavailable Unavailable CARRION INFORMATION RECEPTIONIST, ANTONIO Unavailable Unavailable CONDINO GEOLOGICAL E LOGGER/CALZADA, ANGUS Unavailable Unav ailable Payers Payer Name Policy Type Policy Number Effective Date Expira tion Date [facility] [id number] Problems Condition Name Condition Details Condition Category [...] 2023-05 00:00: 00 ATHSCL HEART DISEASE OF [place] CORONARY ARTERY W/O ANG PCTRS Active 05-01 00:00: 00 MIXED HYPERLIPIDEM IA Active 05-01 00:00: 00 UNSPECIFIED MOOD [AFFECTIVE] DISORDER Active 05-01 00:00: 00 DVRTCLOS OF INTEST, PART UNSP, 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 05-01 00:00: 00 BENIGN PROSTATIC HYPERPLASIA WITHOUT LOWER URINRY TRACT SYMP Active 05-01 00:00: 00 ALCOHOL ABUSE, IN REMISSION Active 05-01 00:00: 00 S[facility] LIVING (CURRENT) USE OF ANTICOAGULAN TS Active 2023-05 [...] immediate release tablet 2023-05 00:00: 00 Yes [id number] PAIN 15 mg EVERY 6 HOURS NEEDED 15 mg EVERY 6 HOURS NEEDED (route: oral) Med Classific ation: Analgesic , Anti-infl ammatory or Antipyret ic clonazepam 0.5 mg tablet 2023-05 00:00: 00 Yes [id number] ANXIETY 0.5 mg 2 TIMES DAILY 0.5 mg 2 TIMES DAILY (route: oral) Med Classific ation: Central Nervous System Agents lisinopril 40 mg tablet 2023-05 00:00: 00 03-21 23:59 :00 No [id number] CAD 40 mg DAILY 40 mg DAILY (route: oral) Med Classific ation: Cardiovas cular Therapy Agents atorvastati n 80 mg tablet 2023-05 00:00: 00 Yes [id number] HYPERTENSIO N 80 mg DAILY 80 mg DAILY (route: oral) Med Classific ation: Cardiovas cular Therapy Agents cilostazol 50 mg tablet 2023-05 00:00: 00 Yes [id number] HYPERTENSIO N 50 mg 2 TIMES DAILY 50 mg 2 TIMES DAILY (route: oral) Med Classific ation: Hematolog ical Agents clopidogrel 75 mg tablet 2023-05 00:00: 00 03-21 23:59 :00 No [id number] CORONARY ARTERY DISEASE 75 mg DAILY 75 mg DAILY (route: oral) Med Classific ation: Hematolog ical Agents Eliquis 5 mg tablet 2023-05 00:00: 00 Yes [id number] ANTI ARRHYTHMIC 5 mg 2 TIMES DAILY 5 mg 2 TIMES DAILY (route: oral) Med Classific ation: Hematolog ical Agents furosemide 40 mg tablet 2023-05 00:00: 00 03-21 23:59 :00 No [id number] BPH 40 mg DAILY 40 mg DAILY (route: oral) Alternate Route: INTRA-MUS CULAR. Med Classific ation: Cardiovas cular Therapy Agents metoprolol tartrate 50 mg tablet 2023-05 00:00: 00 03-22 23:59 :00 No [id number] CAD 50 mg DAILY 50 mg DAILY (route: oral) Med Classific ation: Cardiovas cular Therapy Agents quetiapine 25 mg tablet 2023-05 00:00: 00 Yes [id number] MOOD STABILIZER 25 mg 2 TIMES DAILY 25 mg 2 TIMES DAILY (route: oral) Med Classific ation: Central Nervous System Agents sertraline 50 mg tablet 2023-05 00:00: 00 Yes [id number] MOOD STABILIZER 50 mg DAILY 50 mg DAILY (route: oral) Med Classific ation: Central Nervous System Agents tamsulosin 0.4 mg capsule 2023-05 00:00: 00 Yes [id number] BPH 0.4 mg DAILY 0.4 mg DAILY (route: oral) Med Classific ation: Genitouri nary Therapy docusate sodium 100 mg tablet 2023-05 00:00: 00 Yes [id number] CONSTIPATIO N 100 mg DAILY 100 mg DAILY (route: oral) Med Classific ation: Gastroint estinal Therapy Agents gabapentin 100 mg capsule 2023-05 00:00: 00 Yes [id number] PAIN 1-3 capsule BEDTIME 1-3 capsule BEDTIME (route: oral) Med Classific ation: Central Nervous System Agents metoprolol tartrate 25 mg tablet 2023-05 00:00: 00 03-27 16:09 :43.1 53 No [id number] HYPERTENSIO N 25 mg 2 TIMES DAILY 25 mg 2 TIMES DAILY (route: oral) Med Classific ation: Cardiovas cular Therapy Agents Multaq 400 mg tablet 2023-05 00:00: 00 Yes [id number] ANTIARRHYTH MICHAEL 400 mg 2 TIMES DAILY 400 mg 2 TIMES DAILY (route: oral) Med Classific ation: Cardiovas cular Therapy Agents furosemide 40 mg tablet 2023-05 00:00: 00 Yes [id number] edema 1 tablet DAILY 1 tablet DAILY (route: oral) Med Classific ation: Cardiovas cular Therapy Agents dextroamphe tamine-amph etamine 7.5 mg tablet 2023-05 00:00: 00 Yes [id number] attention 1 tablet DAILY 1 tablet DAILY (route: oral) Med Classific ation: Central Nervous System Agents metoprolol tartrate 25 mg tablet 2023-05 00:00: 00 Yes [id number] heart rate 0.5 tablet 2 TIMES DAILY 0.5 tablet 2 TIMES DAILY (route: oral) Med Classific ation: Cardiovas cular Therapy Agents cephalexin 500 mg capsule 2023-05 00:00: 00 04-10 23:59 :00 No [id number] CELLULITIS LLL 500 mg 4 TIMES DAILY 500 mg 4 TIMES DAILY (route: oral) Med Classific ation: Anti-Infe ctive Agents hydralazine 25 mg tablet 2023-05 00:00: 00 Yes [id number] HTN 25 mg 2 TIMES DAILY 25 [...] TION MANAGEMENT; RN TO ASSESS AND TEACH, PRODUCT DEVELOPMENT WORKER/BLOCKING MACHINE OPERATOR TO OBSERVE AND TEACH ON EDUCATION AND INTERVENTION TO IDENTIFY FALL RISK FACTORS SUCH MEDICATIONS THAT MAY CAUSE DIZZINESS, CHRONIC DISEASES, PSYCHOLOGICAL FACTORS, AND EMPOWER/EDUCATE PATIENT/CAREGIVER TO MINIMIZE FALL RISK. [code = FALL REDUCTION MANAGEMENT; RN TO ASSESS AND TEACH, PRODUCT DEVELOPMENT WORKER/BLOCKING MACHINE OPERATOR TO OBSERVE AND TEACH ON EDUCATION AND INTERVENTION TO IDENTIFY FALL RISK FACTORS SUCH MEDICATIONS THAT MAY CAUSE DIZZINESS, CHRONIC DISEASES, PSYCHOLOGICAL FACTORS, AND EMPOWER/EDUCATE PATIENT/CAREGIVER TO MINIMIZE FALL RISK.] Future Scheduled Test RN TO OBSE RVE, ASSESS, EVALUATE, AND DEVELOP AN INDIVIDUALIZED PLAN OF CARE. AGENCY MAY ACCEPT ORDERS FROM CONSULTING PHYSICIANS . RN TO OBSERVE AND ASSESS, PRODUCT DEVELOPMENT WORKER/BLOCKING MACHINE OPERATOR TO OBSERVE FOR RISK FOR FALLS AND INSTRUCT IN FALL PREVENTION, HOME SAFETY, MEDICATION MANAGEMENT, INFECTION PREVENTION, AND NUTRITION MANAGEMENT. RN/PRODUCT DEVELOPMENT WORKER/BLOCKING MACHINE OPERATOR NURSE MAY PERFORM O2 SATURATION LEVEL ON ADMISSION AND PRN FOR FOR RN TO ASSESS/PRODUCT DEVELOPMENT WORKER TO OBSERVE PATIENT, WITH NOTIFICATION TO THE PHYSICIAN IF SATURATION IS 90% IN THE ABSENCE OF MORE SPECIFIC PARAMETERS FROM THE PHYSICIAN. AGENCY MAY PERFORM A RESUMPTION OF CARE VISIT FOLLOWING ANY HOSPITAL ADMISSION. RN/PRODUCT DEVELOPMENT WORKER/BLOCKING MACHINE OPERATOR TO MONITOR CO-MORBID CONDITIONS LISTED ON THE PLAN OF CARE AND ANY NEW CONDITIONS THAT PRESENT THEMSELVES DURING THIS EPISODE TO IDENTIFY CHANGES AND INTERVENE TO MINIMIZE COMPLICATIONS. [code = RN TO OBSERVE, ASSESS, EVALUATE, AND DEVELOP AN INDIVIDUALIZED PLAN OF CARE. AGENCY MAY ACCEPT ORDERS FROM CONSULTING PHYSICIANS . RN TO OBSERVE AND ASSESS, PRODUCT DEVELOPMENT WORKER/BLOCKING MACHINE OPERATOR TO OBSERVE FOR RISK FOR FALLS AND INSTRUCT IN FALL PREVENTION, HOME SAFETY, MEDICATION MANAGEMENT, INFECTION PREVENTION, AND NUTRITION MANAGEMENT. RN/PRODUCT DEVELOPMENT WORKER/BLOCKING MACHINE OPERATOR NURSE MAY PERFORM O2 SATURATION LEVEL ON ADMISSION AND PRN FOR FOR RN TO ASSESS/PRODUCT DEVELOPMENT WORKER TO OBSERVE PATIENT, WITH NOTIFICATION TO THE PHYSICIAN IF SATURATION IS 90% IN THE ABSENCE OF MORE SPECIFIC PARAMETERS FROM THE PHYSICIAN. AGENCY MAY PERFORM A RESUMPTION OF CARE VISIT FOLLOWING ANY HOSPITAL ADMISSION. RN/PRODUCT DEVELOPMENT WORKER/BLOCKING MACHINE OPERATOR TO MONITOR CO-MORBID CONDITIONS LISTED ON THE PLAN OF CARE AND ANY NEW CONDITIONS THAT PRESENT THEMSELVES DURING THIS EPISODE TO IDENTIFY CHANGES AND INTERVENE TO MINIMIZE COMPLICATIONS.] Future Scheduled Test PAIN MANAG EMENT; RN TO ASSESS AND TEACH, BLOCKING MACHINE OPERATOR/PRODUCT DEVELOPMENT WORKER TO OBSERVE AND TEACH AND PROVIDE EDUCATION ON PAIN MANAGEMENT TECHNIQUES. [code = PAIN MANAGEMENT; RN TO ASSESS AND TEACH, BLOCKING MACHINE OPERATOR/PRODUCT DEVELOPMENT WORKER TO OBSERVE AND TEACH AND PROVIDE EDUCATION ON PAIN MANAGEMENT TECHNIQUES.] Future Scheduled Test PRN VISITS ; NUMBER OF RN/PRODUCT DEVELOPMENT WORKER/BLOCKING MACHINE OPERATOR VISITS:2 RN/PRODUCT DEVELOPMENT WORKER/BLOCKING MACHINE OPERATOR TO PERFORM: MED EDUCATION/RECONCILIATION FOR THE FOLLOWING REASONS: MED COMPLICATIONS [code = PRN VISITS; NUMBER OF RN/PRODUCT DEVELOPMENT WORKER/BLOCKING MACHINE OPERATOR VISITS:2 RN/PRODUCT DEVELOPMENT WORKER/BLOCKING MACHINE OPERATOR TO PERFORM: MED EDUCATION/RECONCILIATION FOR THE FOLLOWING REASONS: MED COMPLICATIONS] Future Scheduled Test RISK FOR H OSPITALIZATION; RN TO ASSESS/TEACH, BLOCKING MACHINE OPERATOR/PRODUCT DEVELOPMENT WORKER TO OBSERVE/TEACH PATIENT/CAREGIVER ON RISK FOR HOSPITALIZATION/EMERGENCY ROOM VISITS, TEACH SIGNS AND SYMPTOMS THAT PUT PATIENT AT RISK, WHEN TO NOTIFY NURSE/PHYSICIAN OF COMPLICATIONS/DECLINE, AND WHEN TO CALL 911. [code = RISK FOR HOSPITALIZATION; RN TO ASSESS/TEACH, BLOCKING MACHINE OPERATOR/PRODUCT DEVELOPMENT WORKER TO OBSERVE/TEACH PATIENT/CAREGIVER ON RISK FOR HOSPITALIZATION/EMERGENCY ROOM VISITS, TEACH SIGNS AND SYMPTOMS THAT PUT PATIENT AT RISK, WHEN TO NOTIFY NURSE/PHYSICIAN OF COMPLICATIONS/DECLINE, AND WHEN TO CALL 911.] Future Scheduled Test CARDIOVASC ULAR SYSTEM; RN TO ASSESS/TEACH, PRODUCT DEVELOPMENT WORKER/BLOCKING MACHINE OPERATOR TO OBSERVE/TEACH RELATED TO ALTERED CARDIOVASCULAR STATUS TO MINIMIZE COMPLICATIONS AND REDUCE HOSPITALIZATION. [code = CARDIOVASCULAR SYSTEM; RN TO ASSESS/TEACH, PRODUCT DEVELOPMENT WORKER/BLOCKING MACHINE OPERATOR TO OBSERVE/TEACH RELATED TO ALTERED CARDIOVASCULAR STATUS TO MINIMIZE COMPLICATIONS AND REDUCE HOSPITALIZATION.] Future Scheduled Test HYPOTENSIO N MANAGEMENT; RN TO ASSESS AND TEACH/ PRODUCT DEVELOPMENT WORKER /BLOCKING MACHINE OPERATOR TO OBSERVE AND TEACH WARNING SIGNS AND SYMPTOMS TO AVOID HOSPITALIZATION. [code = HYPOTENSION MANAGEMENT; RN TO ASSESS AND TEACH/ PRODUCT DEVELOPMENT WORKER /BLOCKING MACHINE OPERATOR TO OBSERVE AND TEACH WARNING SIGNS AND SYMPTOMS TO AVOID HOSPITALIZATION. ] Future Scheduled Test ARRHYTHMIA MANAGEMENT; RN TO ASSESS AND TEACH, PRODUCT DEVELOPMENT WORKER/BLOCKING MACHINE OPERATOR TO OBSERVE AND TEACH WARNING SIGNS AND SYMPTOMS TO AVOID HOSPITALIZATION. [code = ARRHYTHMIA MANAGEMENT; RN TO ASSESS AND TEACH, PRODUCT DEVELOPMENT WORKER/BLOCKING MACHINE OPERATOR TO OBSERVE AND TEACH WARNING [...] End Date/Time Encounter Type Admission Type Attending [facility] Emergency Department Facility Care Department Encounter ID Discharge Date Discharge Status Discharge Condition Discharge Reason Percent Goals Met 2024-03-22 00:00:00 2024-05-20 00:00:00 Outpatient NEW ADMISSION DAGOBERTO GAVIN [facility] [id number] 63.46
== END 2024-05-20 09:20 | disposition home or self-care (01) ==
LOC: HO.HOSX 09:19
PROVIDERS: Visit Provider Physician Assistant
DX: S42.031D Displaced fracture of lateral end of right clavicle, subsequent encounter for fracture with routine healing (principal)
CPT/HCPCS: 73000; 99212

== ENCOUNTER 2024-05-20 10:20 | Outpatient (AMB) | payer MEDICARE, SELFPAY ==
--- NOTE | 2024-05-20 10:23 | MHC.OFFVIS ---
Vital Signs 05/20/24 10:24 Height 6 ft Weight 250 lb BMI 33.9 Intake Visit Reasons: FC- Right clavicle fracture s/p fall Intake Note: Alex is a 79 year old male who presents today for an evaluation of right clavicle s/p fall. Patient reports he is doing well, he has discomfort that comes and goes. His most discomfort comes at night. Allergies No Known Allergies [No Known Allergies*] Allergy (Verified 05/20/24 10:29) Medication List - Last Reconciled 05/20/24 by Augusta Klein PA-C apixaban (Eliquis) 5 mg PO BID atorvastatin 80 mg PO DAILY cilostazol 50 mg PO BID clonazepam 0.5 mg PO BID dextroamphetamine-amphetamine 7.5 mg 1 tab PO DAILY docusate sodium 100 mg PO DAILY dronedarone (Multaq) 400 mg PO BID furosemide 40 mg PO DAILY gabapentin 100 - 300 mg (1 - 3 x 100 mg) PO BEDTIME 30 days hydralazine 25 mg PO BID 30 days melatonin 3 mg PO BEDTIME PRN metoprolol tartrate 25 mg See Protocol PO BID oxycodone mg PO quetiapine 25 mg PO BID sertraline 50 mg PO DAILY tamsulosin 0.4 mg PO DAILY HPI HPI FC- Right clavicle fracture s/p fall: Details: 79 yo male returns to the office today f/u Right clavicle fx. He states he has improved since his last appt, he has mild discomfort. He has been working with [employer] [facility]. [facility] Medical History Coronary artery disease Hypersomnia Snoring Neuropathy Atherosclerotic cardiovascular disease History of alcohol abuse History of COVID-19 On beta jose at home COPD (chronic obstructive pulmonary disease) On anticoagulant therapy History of atrial fibrillation PVD (peripheral vascular disease) Renal cell carcinoma Hypertension Depression Anxiety Diverticulitis Surgical History H/O cardiac catheterization History of colectomy S/P femoral-femoral bypass surgery Social History Household Members: Significant Other Housing: House Do you presently have visiting nurse or other home services: No Alcohol intake: never Patient Tobacco Use Status: Former Tobacco user Tobacco use type: Cigarette Substance Use Type: Marijuana Advance Directives Date on File: 06/09/21 service: Yes Current occupational status: retired Current occupation: right hand dominant Review of Systems Const All systems reviewed & are unremarkable except as noted in HPI and below Physical Exam Vital Signs: BMI result Body Mass Index 33.9 Const General: cooperative, healthy appearing, comfortable, no acute distress, well developed and alert Orientation/consciousness: patient oriented x3 HEENT Head: Yes normal to inspection, Yes normocephalic and Yes atraumatic Eyes General: appearance normal, both eyes and all related structures Resp Effort & Inspection: normal respiratory effort and able to speak in complete sentences Cardio Rate: regular rate Peripheral pulses: Peripheral pulses 2+ throughout GI Palpation (GI): Soft to palpation Skin Lesions: no lesions Rashes: no rashes Neuro General: patient oriented x3 Extrem Other: Right clavicle: Skin is intact. No skin tenting or skin breakdown. There is no bony deformity , no tenderness to palpation over the fracture site. Anterior deltoid sensation is intact. Full ROM of elbow with no pain. No pain along the forearm. Negative squeeze test. No pain along the distal radius. NVI. Results Reviewed Results Reviewed: Xrays were obtained in the office today and personally reviewed by me of the right clavicle show minimally displaced fracture at the distal clavcicle with interval healing. Assessment & Plan Assessment & Plan (1) Right clavicle fracture: Code(s): S42.001A - Fracture of unspecified part of right clavicle, initial encounter for closed fracture Category: Medical Qualifiers: Clavicle location: lateral end Encounter type: subsequent encounter Fracture alignment: displaced Fracture type: closed Fracture healing: with routine healing Qualified Code(s): S42.031D - Displaced fracture of lateral end of right clavicle, subsequent encounter for fracture with routine healing Plan He will continue to work with therapy to maintain his motion and progressive strengthening. At this time I do not feel it is ideal to be performing extensive strength type activities. 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 He will see me back in 8 weeks with x-rays sooner if needed. Orders: Orders XR clavicle RT Today S42.009A - Fracture of unspecified part of unspecified clavicle, initial encounter for closed fracture Coding Level of Care Code Global (21006) Diagnoses Closed displaced fracture of acromial end of right clavicle with routine healing, subsequent encounter S42.031D Clavicle location: lateral end Encounter type: subsequent encounter Fracture alignment: displaced Fracture type: closed Fracture healing: with routine healing
[2024-05-20 10:24] VITALS: BMI 33.9
--- OUTSIDE RECORDS SUMMARY | 2024-05-20 10:46 | XMS_ITS | Clinical Summary ---
Author Organization Unknown Care Team Providers Care Space Technologist Name Role Phone MARCO RAMIREZ, POOJA Unavailable Unavaileddie GAVIN RN, DAGOBERTO Unavailable Unavailab abraham MANTILAL LPN, YORDAN Unavailable Unavail able BARBARA PT, COURTNEY Unavailable Unavailable SHERYL DENTAL ASSISTANT MEDICAL ASSISTANT, JANETT Unavailable Unavailable SPAFFORD OT, DAGO Unavailable Unavailable CARRION WINERY WORKER, ANTONIO Unavailable Unavailable CONDINO BOOK MENDER/CALZADA, ANGUS Unavailable Unav ailable Payers Payer Name Policy Type Policy Number Effective Date Expira tion Date [facility] [id number] Problems Condition Name Condition Details Condition Category [...] 2023-05 00:00: 00 ATHSCL HEART DISEASE OF [place] CORONARY ARTERY W/O ANG PCTRS Active 05-01 00:00: 00 MIXED HYPERLIPIDEM IA Active 05-01 00:00: 00 UNSPECIFIED MOOD [AFFECTIVE] DISORDER Active 05-01 00:00: 00 DVRTCLOS OF INTEST, PART UNSP, 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 05-01 00:00: 00 BENIGN PROSTATIC HYPERPLASIA WITHOUT LOWER URINRY TRACT SYMP Active 05-01 00:00: 00 ALCOHOL ABUSE, IN REMISSION Active 05-01 00:00: 00 ALF (CURRENT) USE OF ANTICOAGULAN TS Active 2023-05 [...] immediate release tablet 2023-05 00:00: 00 Yes [id number] PAIN 15 mg EVERY 6 HOURS NEEDED 15 mg EVERY 6 HOURS NEEDED (route: oral) Med Classific ation: Analgesic , Anti-infl ammatory or Antipyret ic clonazepam 0.5 mg tablet 2023-05 00:00: 00 Yes [id number] ANXIETY 0.5 mg 2 TIMES DAILY 0.5 mg 2 TIMES DAILY (route: oral) Med Classific ation: Central Nervous System Agents lisinopril 40 mg tablet 2023-05 00:00: 00 03-21 23:59 :00 No [id number] CAD 40 mg DAILY 40 mg DAILY (route: oral) Med Classific ation: Cardiovas cular Therapy Agents atorvastati n 80 mg tablet 2023-05 00:00: 00 Yes [id number] HYPERTENSIO N 80 mg DAILY 80 mg DAILY (route: oral) Med Classific ation: Cardiovas cular Therapy Agents cilostazol 50 mg tablet 2023-05 00:00: 00 Yes [id number] HYPERTENSIO N 50 mg 2 TIMES DAILY 50 mg 2 TIMES DAILY (route: oral) Med Classific ation: Hematolog ical Agents clopidogrel 75 mg tablet 2023-05 00:00: 00 03-21 23:59 :00 No [id number] CORONARY ARTERY DISEASE 75 mg DAILY 75 mg DAILY (route: oral) Med Classific ation: Hematolog ical Agents Eliquis 5 mg tablet 2023-05 00:00: 00 Yes [id number] ANTI ARRHYTHMIC 5 mg 2 TIMES DAILY 5 mg 2 TIMES DAILY (route: oral) Med Classific ation: Hematolog ical Agents furosemide 40 mg tablet 2023-05 00:00: 00 03-21 23:59 :00 No [id number] BPH 40 mg DAILY 40 mg DAILY (route: oral) Alternate Route: INTRA-MUS CULAR. Med Classific ation: Cardiovas cular Therapy Agents metoprolol tartrate 50 mg tablet 2023-05 00:00: 00 03-22 23:59 :00 No [id number] CAD 50 mg DAILY 50 mg DAILY (route: oral) Med Classific ation: Cardiovas cular Therapy Agents quetiapine 25 mg tablet 2023-05 00:00: 00 Yes [id number] MOOD STABILIZER 25 mg 2 TIMES DAILY 25 mg 2 TIMES DAILY (route: oral) Med Classific ation: Central Nervous System Agents sertraline 50 mg tablet 2023-05 00:00: 00 Yes [id number] MOOD STABILIZER 50 mg DAILY 50 mg DAILY (route: oral) Med Classific ation: Central Nervous System Agents tamsulosin 0.4 mg capsule 2023-05 00:00: 00 Yes [id number] BPH 0.4 mg DAILY 0.4 mg DAILY (route: oral) Med Classific ation: Genitouri nary Therapy docusate sodium 100 mg tablet 2023-05 00:00: 00 Yes [id number] CONSTIPATIO N 100 mg DAILY 100 mg DAILY (route: oral) Med Classific ation: Gastroint estinal Therapy Agents gabapentin 100 mg capsule 2023-05 00:00: 00 Yes [id number] PAIN 1-3 capsule BEDTIME 1-3 capsule BEDTIME (route: oral) Med Classific ation: Central Nervous System Agents metoprolol tartrate 25 mg tablet 2023-05 00:00: 00 03-27 16:09 :43.1 53 No [id number] HYPERTENSIO N 25 mg 2 TIMES DAILY 25 mg 2 TIMES DAILY (route: oral) Med Classific ation: Cardiovas cular Therapy Agents Multaq 400 mg tablet 2023-05 00:00: 00 Yes [id number] ANTIARRHYTH MICHAEL 400 mg 2 TIMES DAILY 400 mg 2 TIMES DAILY (route: oral) Med Classific ation: Cardiovas cular Therapy Agents furosemide 40 mg tablet 2023-05 00:00: 00 Yes [id number] edema 1 tablet DAILY 1 tablet DAILY (route: oral) Med Classific ation: Cardiovas cular Therapy Agents dextroamphe tamine-amph etamine 7.5 mg tablet 2023-05 00:00: 00 Yes [id number] attention 1 tablet DAILY 1 tablet DAILY (route: oral) Med Classific ation: Central Nervous System Agents metoprolol tartrate 25 mg tablet 2023-05 00:00: 00 Yes [id number] heart rate 0.5 tablet 2 TIMES DAILY 0.5 tablet 2 TIMES DAILY (route: oral) Med Classific ation: Cardiovas cular Therapy Agents cephalexin 500 mg capsule 2023-05 00:00: 00 04-10 23:59 :00 No [id number] CELLULITIS LLL 500 mg 4 TIMES DAILY 500 mg 4 TIMES DAILY (route: oral) Med Classific ation: Anti-Infe ctive Agents hydralazine 25 mg tablet 2023-05 00:00: 00 Yes [id number] HTN 25 mg 2 TIMES DAILY 25 mg 2 TIMES DAILY (route: oral) Med Classific ation: Cardiovas cular Therapy Agents Vital Signs Vital Name Observation Time Observation Value Commen ts Temperature 2024-05-16 13:52:00.000 98.2 [degF] Temperature 2024-05-15 12:35:00.000 97.8 [degF] Temperature 2024-05-13 09:33:00.000 97.5 [degF] Temperature 2024-05-07 12:06:00.000 98.6 [degF] Temperature 2024-05-03 10:18:00.000 98.2 [degF] Temperature 2024-05-03 09:28:00.000 97.7 [degF] Temperature 2024-04-30 10:38:00.000 98.7 [degF] Temperature 2024-04-22 08:43:00.000 98.3 [degF] Temperature 2024-04-17 13:01:00.000 97.1 [degF] Temperature 2024-04-16 [...] kg/m2 Height 2024-03-22 10:58:00.000 72 [in_us] Pulse 2024-05-16 13:52:00.000 60 /min Pulse 2024-05-15 12:35:00.000 57 /min Pulse 2024-05-13 09:33:00.000 60 /min Pulse 2024-05-07 12:06:00.000 60 /min Pulse 2024-05-03 10:18:00.000 62 /min Pulse 2024-05-03 09:28:00.000 65 /min Pulse 2024-04-30 10:38:00.000 62 /min Pulse 2024-04-22 08:43:00.000 60 /min Pulse 2024-04-17 13:01:00.000 60 /min Pulse 2024-04-16 [...] 2024-03-22 10:58:00.000 103 /min O2 Saturation (%) 2024-05-16 13:52:00.000 96 % O2 Saturation (%) 2024-05-15 12:35:00.000 97 % O2 Saturation (%) 2024-05-13 09:33:00.000 95 % O2 Saturation (%) 2024-05-07 12:06:00.000 99 % O2 Saturation (%) 2024-05-03 10:18:00.000 96 % O2 Saturation (%) 2024-05-03 09:29:00.000 96 % O2 Saturation (%) 2024-04-30 10:40:00.000 98 % O2 Saturation (%) 2024-04-22 08:44:00.000 100 % O2 Saturation (%) 2024-04-17 13:01:00.000 97 % O2 Saturation (%) 2024-04-16 10:09:00.000 95 % O2 Saturation (%) 2024-04-09 09:01:00.000 99 % O2 Saturation (%) 2024-04-04 11:04:00.000 98 % O2 Saturation (%) 2024-04-02 12:11:00.000 98 % O2 Saturation (%) 2024-03-22 11:16:00.000 92 % Respirations 2024-05-16 13:52:00.000 18 /min Respirations 2024-05-15 12:35:00.000 18 /min Respirations 2024-05-13 09:33:00.000 18 /min Respirations 2024-05-07 12:06:00.000 18 /min Respirations 2024-05-03 10:18:00.000 18 /min Respirations 2024-05-03 09:28:00.000 18 /min Respirations 2024-04-30 10:38:00.000 18 /min Respirations 2024-04-22 08:43:00.000 18 /min Respirations 2024-04-17 13:01:00.000 16 /min Respirations 2024-04-16 [...] Respirations 2024-03-22 10:58:00.000 16 /min Weight (lbs) 2024-05-07 12:07:00.000 240 [lb_av] Weight (lbs) 2024-04-22 08:58:00.000 252.2 [lb_av] Weight (lbs) 2024-04-17 13:01:00.000 245.6 [lb_av] Weight (lbs) 2024-04-16 10:09:00.000 250.6 [lb_av] Weight (lbs) 2024-04-09 09:01:00.000 248.2 [lb_av] Weight (lbs) 2024-04-04 11:06:00.000 242.4 [lb_av] Weight (lbs) 2024-03-29 13:08:00.000 241 [lb_av] Weight (lbs) 2024-03-22 10:58:00.000 234 [lb_av] Systolic Blood Pressure 2024-05-16 13:52:00.000 126 mm [Hg] Systolic Blood Pressure 2024-05-15 12:35:00.000 130 mm [Hg] Systolic Blood Pressure 2024-05-13 09:33:00.000 102 mm [Hg] Systolic Blood Pressure 2024-05-07 12:06:00.000 148 mm [Hg] Systolic Blood Pressure 2024-05-03 10:18:00.000 132 mm [Hg] Systolic Blood Pressure 2024-05-03 09:28:00.000 180 mm [Hg] Systolic Blood Pressure 2024-04-30 10:38:00.000 122 mm [Hg] Systolic Blood Pressure 2024-04-22 08:43:00.000 122 mm [Hg] Systolic Blood Pressure 2024-04-17 13:01:00.000 120 mm [...] 10:58:00.000 123 mm [Hg] Diastolic Blood Pressure 2024-05-16 13:52:00.000 60 mm [Hg] Diastolic Blood Pressure 2024-05-15 12:35:00.000 50 mm [Hg] Diastolic Blood Pressure 2024-05-13 09:33:00.000 64 mm [Hg] Diastolic Blood Pressure 2024-05-07 12:06:00.000 74 mm [Hg] Diastolic Blood Pressure 2024-05-03 10:18:00.000 82 mm [Hg] Diastolic Blood Pressure 2024-05-03 09:28:00.000 88 mm [Hg] Diastolic Blood Pressure 2024-04-30 10:38:00.000 70 mm [Hg] Diastolic Blood Pressure 2024-04-22 08:43:00.000 62 mm [Hg] Diastolic Blood Pressure 2024-04-17 13:01:00.000 [...] TION MANAGEMENT; RN TO ASSESS AND TEACH, IMPLEMENTATION SPECIALIST/EXTRACORPOREAL CIRCULATION SPECIALIST TO OBSERVE AND TEACH ON EDUCATION AND INTERVENTION TO IDENTIFY FALL RISK FACTORS SUCH MEDICATIONS THAT MAY CAUSE DIZZINESS, CHRONIC DISEASES, PSYCHOLOGICAL FACTORS, AND EMPOWER/EDUCATE PATIENT/CAREGIVER TO MINIMIZE FALL RISK. [code = FALL REDUCTION MANAGEMENT; RN TO ASSESS AND TEACH, IMPLEMENTATION SPECIALIST/EXTRACORPOREAL CIRCULATION SPECIALIST TO OBSERVE AND TEACH ON EDUCATION AND INTERVENTION TO IDENTIFY FALL RISK FACTORS SUCH MEDICATIONS THAT MAY CAUSE DIZZINESS, CHRONIC DISEASES, PSYCHOLOGICAL FACTORS, AND EMPOWER/EDUCATE PATIENT/CAREGIVER TO MINIMIZE FALL RISK.] Future Scheduled Test RN TO OBSE RVE, ASSESS, EVALUATE, AND DEVELOP AN INDIVIDUALIZED PLAN OF CARE. AGENCY MAY ACCEPT ORDERS FROM CONSULTING PHYSICIANS . RN TO OBSERVE AND ASSESS, IMPLEMENTATION SPECIALIST/EXTRACORPOREAL CIRCULATION SPECIALIST TO OBSERVE FOR RISK FOR FALLS AND INSTRUCT IN FALL PREVENTION, HOME SAFETY, MEDICATION MANAGEMENT, INFECTION PREVENTION, AND NUTRITION MANAGEMENT. RN/IMPLEMENTATION SPECIALIST/EXTRACORPOREAL CIRCULATION SPECIALIST NURSE MAY PERFORM O2 SATURATION LEVEL ON ADMISSION AND PRN FOR FOR RN TO ASSESS/IMPLEMENTATION SPECIALIST TO OBSERVE PATIENT, WITH NOTIFICATION TO THE PHYSICIAN IF SATURATION IS 90% IN THE ABSENCE OF MORE SPECIFIC PARAMETERS FROM THE PHYSICIAN. AGENCY MAY PERFORM A RESUMPTION OF CARE VISIT FOLLOWING ANY HOSPITAL ADMISSION. RN/IMPLEMENTATION SPECIALIST/EXTRACORPOREAL CIRCULATION SPECIALIST TO MONITOR CO-MORBID CONDITIONS LISTED ON THE PLAN OF CARE AND ANY NEW CONDITIONS THAT PRESENT THEMSELVES DURING THIS EPISODE TO IDENTIFY CHANGES AND INTERVENE TO MINIMIZE COMPLICATIONS. [code = RN TO OBSERVE, ASSESS, EVALUATE, AND DEVELOP AN INDIVIDUALIZED PLAN OF CARE. AGENCY MAY ACCEPT ORDERS FROM CONSULTING PHYSICIANS . RN TO OBSERVE AND ASSESS, IMPLEMENTATION SPECIALIST/EXTRACORPOREAL CIRCULATION SPECIALIST TO OBSERVE FOR RISK FOR FALLS AND INSTRUCT IN FALL PREVENTION, HOME SAFETY, MEDICATION MANAGEMENT, INFECTION PREVENTION, AND NUTRITION MANAGEMENT. RN/IMPLEMENTATION SPECIALIST/EXTRACORPOREAL CIRCULATION SPECIALIST NURSE MAY PERFORM O2 SATURATION LEVEL ON ADMISSION AND PRN FOR FOR RN TO ASSESS/IMPLEMENTATION SPECIALIST TO OBSERVE PATIENT, WITH NOTIFICATION TO THE PHYSICIAN IF SATURATION IS 90% IN THE ABSENCE OF MORE SPECIFIC PARAMETERS FROM THE PHYSICIAN. AGENCY MAY PERFORM A RESUMPTION OF CARE VISIT FOLLOWING ANY HOSPITAL ADMISSION. RN/IMPLEMENTATION SPECIALIST/EXTRACORPOREAL CIRCULATION SPECIALIST TO MONITOR CO-MORBID CONDITIONS LISTED ON THE PLAN OF CARE AND ANY NEW CONDITIONS THAT PRESENT THEMSELVES DURING THIS EPISODE TO IDENTIFY CHANGES AND INTERVENE TO MINIMIZE COMPLICATIONS.] Future Scheduled Test PAIN MANAG EMENT; RN TO ASSESS AND TEACH, EXTRACORPOREAL CIRCULATION SPECIALIST/IMPLEMENTATION SPECIALIST TO OBSERVE AND TEACH AND PROVIDE EDUCATION ON PAIN MANAGEMENT TECHNIQUES. [code = PAIN MANAGEMENT; RN TO ASSESS AND TEACH, EXTRACORPOREAL CIRCULATION SPECIALIST/IMPLEMENTATION SPECIALIST TO OBSERVE AND TEACH AND PROVIDE EDUCATION ON PAIN MANAGEMENT TECHNIQUES.] Future Scheduled Test PRN VISITS ; NUMBER OF RN/IMPLEMENTATION SPECIALIST/EXTRACORPOREAL CIRCULATION SPECIALIST VISITS:2 RN/IMPLEMENTATION SPECIALIST/EXTRACORPOREAL CIRCULATION SPECIALIST TO PERFORM: MED EDUCATION/RECONCILIATION FOR THE FOLLOWING REASONS: MED COMPLICATIONS [code = PRN VISITS; NUMBER OF RN/IMPLEMENTATION SPECIALIST/EXTRACORPOREAL CIRCULATION SPECIALIST VISITS:2 RN/IMPLEMENTATION SPECIALIST/EXTRACORPOREAL CIRCULATION SPECIALIST TO PERFORM: MED EDUCATION/RECONCILIATION FOR THE FOLLOWING REASONS: MED COMPLICATIONS] Future Scheduled Test RISK FOR H OSPITALIZATION; RN TO ASSESS/TEACH, EXTRACORPOREAL CIRCULATION SPECIALIST/IMPLEMENTATION SPECIALIST TO OBSERVE/TEACH PATIENT/CAREGIVER ON RISK FOR HOSPITALIZATION/EMERGENCY ROOM VISITS, TEACH SIGNS AND SYMPTOMS THAT PUT PATIENT AT RISK, WHEN TO NOTIFY NURSE/PHYSICIAN OF COMPLICATIONS/DECLINE, AND WHEN TO CALL 911. [code = RISK FOR HOSPITALIZATION; RN TO ASSESS/TEACH, EXTRACORPOREAL CIRCULATION SPECIALIST/IMPLEMENTATION SPECIALIST TO OBSERVE/TEACH PATIENT/CAREGIVER ON RISK FOR HOSPITALIZATION/EMERGENCY ROOM VISITS, TEACH SIGNS AND SYMPTOMS THAT PUT PATIENT AT RISK, WHEN TO NOTIFY NURSE/PHYSICIAN OF COMPLICATIONS/DECLINE, AND WHEN TO CALL 911.] Future Scheduled Test CARDIOVASC ULAR SYSTEM; RN TO ASSESS/TEACH, IMPLEMENTATION SPECIALIST/EXTRACORPOREAL CIRCULATION SPECIALIST TO OBSERVE/TEACH RELATED TO ALTERED CARDIOVASCULAR STATUS TO MINIMIZE COMPLICATIONS AND REDUCE HOSPITALIZATION. [code = CARDIOVASCULAR SYSTEM; RN TO ASSESS/TEACH, IMPLEMENTATION SPECIALIST/EXTRACORPOREAL CIRCULATION SPECIALIST TO OBSERVE/TEACH RELATED TO ALTERED CARDIOVASCULAR STATUS TO MINIMIZE COMPLICATIONS AND REDUCE HOSPITALIZATION.] Future Scheduled Test HYPOTENSIO N MANAGEMENT; RN TO ASSESS AND TEACH/ IMPLEMENTATION SPECIALIST /EXTRACORPOREAL CIRCULATION SPECIALIST TO OBSERVE AND TEACH WARNING SIGNS AND SYMPTOMS TO AVOID HOSPITALIZATION. [code = HYPOTENSION MANAGEMENT; RN TO ASSESS AND TEACH/ IMPLEMENTATION SPECIALIST /EXTRACORPOREAL CIRCULATION SPECIALIST TO OBSERVE AND TEACH WARNING SIGNS AND SYMPTOMS TO AVOID HOSPITALIZATION. ] Future Scheduled Test ARRHYTHMIA MANAGEMENT; RN TO ASSESS AND TEACH, IMPLEMENTATION SPECIALIST/EXTRACORPOREAL CIRCULATION SPECIALIST TO OBSERVE AND TEACH WARNING SIGNS AND SYMPTOMS TO AVOID HOSPITALIZATION. [code = ARRHYTHMIA MANAGEMENT; RN TO ASSESS AND TEACH, IMPLEMENTATION SPECIALIST/EXTRACORPOREAL CIRCULATION SPECIALIST TO OBSERVE AND TEACH WARNING SIGNS AND SYMPTOMS TO AVOID HOSPITALIZATION.] Goal 2024-05-16 Patient Goal - [place] LIKE TO BE ABLE TO EAT AND SLEEP RIGHT. Goal Patient Goal - [place] LIKE [...] End Date/Time Encounter Type Admission Type Attending [facility] Facility Care Department Encounter ID Discharge Date Discharge Status Discharge Condition Discharge Reason Percent Goals Met 2024-03-22 00:00:00 2024-05-20 00:00:00 Outpatient NEW ADMISSION DAGOBERTO GAVIN [facility] [id number] 63.46
== END 2024-05-20 10:47 | disposition home or self-care (01) ==
PROVIDERS: PCP Internal Medicine; Visit Provider Physician Assistant
DX: S42.031D Displaced fracture of lateral end of right clavicle, subsequent encounter for fracture with routine healing (principal)
CPT/HCPCS: 99213

== ENCOUNTER 2024-05-27 09:28 | Outpatient (AMB) | payer MEDICARE, SELFPAY ==
[2024-05-27 09:34] VITALS: BP 142/72; PULSE 65; BMI 34.0
--- NOTE | 2024-05-27 09:34 | A.OFFVIS_ITS ---
Vital Signs 05/27/24 09:34 Height 6 ft Weight 250 lb 7.122 oz BMI 34.0 BP 142/72 H Blood Pressure Location Rt brachial Position Sitting Pulse 65 Pulse Source Monitor Intake Visit Reasons: 6 wk f/up Construction Accountant Required: No Allergies No Known Allergies [No Known Allergies*] Allergy (Verified 05/27/24 09:36) Medication List - Last Reconciled 05/27/24 by ARNOL Aviles apixaban (Eliquis) 5 mg PO BID atorvastatin 80 mg PO DAILY cilostazol 50 mg PO BID clonazepam 0.5 mg PO BID dextroamphetamine-amphetamine 7.5 mg 1 tab PO DAILY docusate sodium 100 mg PO DAILY dronedarone (Multaq) 400 mg PO BID furosemide 40 mg PO DAILY gabapentin 100 - 300 mg (1 - 3 x 100 mg) PO BEDTIME 30 days hydralazine 25 mg PO BID 30 days melatonin 3 mg PO BEDTIME PRN metoprolol tartrate 25 mg See Protocol PO BID quetiapine 25 mg PO BID sertraline 50 mg PO DAILY tamsulosin 0.4 mg PO DAILY HPI HPI 6 wk f/up: Details: Alex is a 79-year-old male past medical history of hypertension, hyperlipidemia, peripheral vascular disease, dilated ascending aorta, coronary artery disease, lad stent, atrial flutter, SVT, recent fall with fractured clavicle, who was admitted to [facility] 03/2024 for SVT, hypotension, CATALINO. His Lasix, lisinopril, Plavix were stopped. His metoprolol dose was reduced and he was started on Multaq. He was continued on Eliquis. He now presents for follow-up. Today he reports that he has been doing better overall. He is no longer experiencing light-headedness. He is no longer having soreness from his fractured clavicle. He has no chest discomfort at rest or with activity. He has no concerning shortness of breath. He is not feeling heart palpitations. He does have bilateral leg edema which has been chronic. He has been increasing his physical and goes swimming at the [employer] 2-3 times weekly.. He does not know his medications, he takes what his [facility] nurse gives him. No bleeding issues repo rted. Came to this appointment alone, driving. [facility] Medical History Coronary artery disease Hypersomnia Snoring Neuropathy Atherosclerotic cardiovascular disease History of alcohol abuse History of COVID-19 On beta jose at home COPD (chronic obstructive pulmonary disease) On anticoagulant therapy History of atrial fibrillation PVD (peripheral vascular disease) Renal cell carcinoma Hypertension Depression Anxiety Diverticulitis Surgical History H/O cardiac catheterization History of colectomy S/P femoral-femoral bypass surgery Social History Household Members: Significant Other Housing: House Do you presently have visiting nurse or other home services: No Alcohol intake: never Patient Tobacco Use Status: Former Tobacco user Tobacco use type: Cigarette Substance Use Type: Marijuana Advance Directives Date on File: 06/09/21 service: Yes Current occupational status: retired Current occupation: right hand dominant Review of Systems Const All systems reviewed & are unremarkable except as noted in HPI and below ENT Denies dizziness Card Denies chest pain, Denies chest pain at rest, Denies chest pain with activity, Denies rapid heart rate, Denies pedal edema, Denies edema, Reports leg edema, Denies lightheadedness, Denies palpitations, Denies dyspnea, Denies dyspnea on exertion and Denies orthopnea Resp Denies cough, Denies dyspnea and Denies dyspnea on exertion GI Denies hematochezia and Denies change in stool character Musc Denies abnormal gait, Denies limited range of motion, Denies muscle cramps, Denies muscle weakness, Denies numbness, Denies radiating pain into limb, Denies stiffness and Denies tingling Neuro Denies abnormal gait, Denies dizziness, Denies numbness and Denies tingling Endo Denies palpitations Physical Exam Vital Signs: BMI result Body Mass Index 34.0 Const General: cooperative, healthy appearing, comfortable and no acute distress Orientation/consciousness: patient oriented x3 Neck Neck: Yes normal visual inspection Resp Effort & Inspection: normal respiratory effort Auscultation: clear to auscultation bilaterally, no crackles, no rales, no rhonchi and no wheezes Cardio Jugular venous distension: no JVD Rate: regular rate Rhythm: regular rhythm Heart sounds: S1 normal heart sound present, S2 normal heart sound present, no murmurs and no rubs Neuro General: patient oriented x3 Extrem General: Yes normal to inspection, No no pedal edema and No calf tenderness Psych Appearance: grossly normal Mental Status: mental status grossly normal Speech and movement: Normal speech and movement present Office Procedures EKG Details: Today, read by me SR, with PACs, Septal infarct, rate 65, Qtc 465ms [id number], Complete Assessment & Plan Assessment & Plan (1) SVT (supraventricular tachycardia): Code(s): I47.10 - Supraventricular tachycardia, unspecified Category: Medical Plan: [facility] ER evaluations on 03/12 - for lightheadedness and SVT that was treated with IV metoprolol, then 03/14 for lightheadedness without significant findings. [facility] [place] 03/17 after having lightheadedness, fall down the stairs at home and sustaining a distal clavicle fracture. He was seen in the office here on 03/18/2024 with weakness, hypotension, tachycardia. He was sent to the ER for evaluation an EKG showed supraventricular tachycardia and he was treated with rate slowing medication and he converted. During his admission he did have recurrent SVT and he was started on Multaq 400 mg b.i.d.. His metoprolol dose was reduced from 50 mg b.i.d. down to 25 mg b.i.d.. He has done well since that time. Cardiac event monitor done 04/15/2024 for 30 days showing sinus rhythm with average heart rate 66, SVE 2 % of time, ve less than 1% of time, 2 runs 5 beats long. Today he reports no recurrent heart palpitations since his hospital discharge. EKG done today is showing normal sinus rhythm, Pac however reviewed with Dr. Rutledge and can not exclude Wenckebach or block Pac based on information available, septal infarct, which is not new, rate 65, QTC 465 milliseconds. Continue metoprolol for heart rate control. Continue Multaq for rhythm control. Vagal maneuvers reviewed. Emergency care if needed for sustained rapid palpitation. Cardiology follow-up 3 months, sooner if needed. Plan to recheck of EKG and go over echo results. (2) Hypertension: Code(s): I10 - Essential (primary) hypertension Category: Medical Qualifiers: Hypertension type: renovascular hypertension Qualified Code(s): I15.0 - Renovascular hypertension Plan: History of hypertension. His lisinopril and Lasix were stopped at the time of his last discharge. His Lasix was restarted earlier prior to his last visit due to reports of weight gain and leg edema. Blood pressure quite elevated on last visit.He previously had CATALINO so lisinopril was not restarted. I avoided the use of amlodipine as he already has bilateral lower leg edema. He was then started on hydralazine 25 mg b.i.d.. Blood pressure today initially mildly elevated at 142/72, recheck done by me 136/68. This is acceptable. No med changes at this time. Continue hydralazine, metoprolol and Lasix. (3) Paroxysmal atrial fibrillation: Code(s): I48.0 - Paroxysmal atrial fibrillation Category: Medical Plan: History of paroxysmal atrial fibrillation. No recent known reoccurrence. He is on metoprolol for heart rate control and now on Multaq further control of his SVT.. He is on Eliquis for anticoagulation. No bleeding issues reported. Labs done 03/27/2024 showed creatinine 1.25. Labs 03/20/2024 showed hematocrit 34. (4) Coronary artery disease: Code(s): I25.10 - Atherosclerotic heart disease of [place] coronary artery without angina pectoris Category: Medical Plan: History of coronary artery disease with LAD stent, 05/05/2022. Last echocardiogram done 02/25/2022 show EF 55-60%, unable to assess for wall motion abnormality, ascending aorta 4.1 cm. He denies chest discomfort or shortness of breath at this visit. He is not on aspirin as he is on Eliquis. He is on metoprolol, high-dose atorvastatin with ideal LDL goal less than 70. Will reach out to PCP office to get most recent lipid profile. Will update echo prior to his next visit to re-evaluate ascending aorta and EF. (5) S/P cardiac cath: Comment: 05/05/2022, left main mild disease, lad proximal 65% stenosis, 1st diagonal 100% stenosis, left circumflex minimal irregularities, RCA mid 50% stenosis, right PDA 50% stenosis, stent placed to the proximal LAD Code(s): Z98.890 - Other specified postprocedural states Category: Surgical Plan: As above (6) PVD (peripheral vascular disease): Code(s): I73.9 - Peripheral vascular disease, unspecified Category: Medical Plan: He reports of history of stent in his right femoral region, fem to fem bypass on the left. He has ongoing issues with numbness in his lower extremities. He normally ambulates steadily. He has been followed by Dr. Mendoza. He had been on Plavix which was stopped during last hospitalization. He is on Eliquis. (7) Ascending aortic aneurysm: Code(s): I71.2 - Thoracic aortic aneurysm, without rupture Category: Medical Plan: Last echo 02/25/2022 showed ascending aorta 4.1 cm. Repeating echo prior to his next visit. Plan Time spent on chart review, documentation, interview and assessment Orders: Orders CA echo transthoracic complete 2 Months I15.0 - Renovascular hypertension, I71.2 - Thoracic aortic aneurysm, without rupture Coding Level of Care Code Est Pt Level 4 (23328) Complex EM visit Add On G2211 Diagnoses SVT (supraventricular tachycardia) I47.10 Renovascular hypertension I15.0 Hypertension type: renovascular hypertension Paroxysmal atrial fibrillation I48.0 Coronary artery disease I25.10 S/P cardiac cath Z98.890 PVD (peripheral vascular disease) I73.9 Ascending aortic aneurysm I71.2 CPT Codes EKG - CPT: [id number], Complete ([id number]) Time Spent (min) 30
--- OUTSIDE RECORDS SUMMARY | 2024-05-27 13:51 | XMS_ITS | Encounter Summary ---
Author Organization [employer] Address [address] [place] [address] Care Team Providers Care Paymaster Of Purses Name Role Phone Sesar Pereyra MD Primary Care Provider [phone] Reason for Visit * Reason Comments Med Refill Encounter Details Date Type Department Care Team ([facility] Contact Info) Description 10/19/2022 Refill [facility] [address] [place] [address] Sesar Pereyra MD [address] [place] [address] Social History Tobacco Use Types Packs/Day Years Used Date Smoking Tobacco: Former Cigarettes Smokeless Tobacco: Never Comments:Quit 35 years ago. Sex and Gender Information Value Date Recorded Sex Assigned at Male 02/28/2022 10:24 AM EDT Legal Sex Male 10:24 AM EDT Gender Identity Male 02/28/2022 10:24 AM EDT Sexual Orientation Choose not to disclose 2021 10:24 AM EDT COVID-19 Exposure Response Date Recorded In the last 10 days, have yo u been in contact with someone who was confirmed or suspected to have Coronavirus/COVID-19? No / Unsure 09/27/2022 1:22 PM EDT documented as of this encounter Plan of Treatment Upcoming Encounters Date Type Department Care Team (Late Contact Info) Description 06/13/2024 1:00 PM EST Office Visit [facility] [address] [place] [address] Sesar Pereyra MD [address] [place] [address] documented as of this encounter Visit Diagnoses Not on filedocumented in this encounter Care Teams Paymaster Of Purses Relationship Specialty Start Date End Date Sesar Pereyra MD [address] [place] [address] PCP - General Internal Medicine 03/01/21 [facility] 03/22/24 documented as of this encounter
--- OUTSIDE RECORDS SUMMARY | 2024-05-27 13:51 | XMS_ITS | Clinical Summary ---
Author Organization Unknown Care Team Providers Care Airplane Refueler Name Role Phone MARCO RAMIREZ, POOJA Unavailable Unavailabl e JIMENEZ PT, COURTNEY Unavailable Unavailable SPAFFORD OT, DAGO Unavailable Unavailable CONDINO NISSAN SALES CONSULTANT/CALZADA, ANGUS Unavailable Unav ailable FECTEAU CHIEF RADIOLOGY, JANETT Unavailable Unavailable LESLYE RN, DAGOBERTO Unavailable Unavailab abraham C[employer]ION SUPPORT GROUP MANAGER, ANTONIO Unavailable Unavailable JOSE RAFAEL SKAGGSN, YORDAN Unavailable Unavail able Payers Payer Name Policy Type Policy Number Effective Date Expira tion Date [facility] [id number] Problems Condition Name Condition Details Condition Category [...] 00 EMPHYSEMA, UNSPECIFIED Active 2023-05 00:00: 00 POLYNEUROPAT HY, UNSPECIFIED Active 05-01 00:00: 00 SPONDYLOSIS W/O MYELOPATHY OR RADICULOPATH Y, CERVICAL REGION Active 2023-05 00:00: 00 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 05-01 00:00: 00 MIXED HYPERLIPIDEM IA Active 05-01 00:00: 00 UNSPECIFIED MOOD [AFFECTIVE] DISORDER Active 05-01 00:00: 00 DVRTCLOS OF INTEST, PART UNSP, 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 05-01 00:00: 00 BENIGN PROSTATIC HYPERPLASIA WITHOUT LOWER URINRY TRACT SYMP Active 05-01 00:00: 00 ALCOHOL ABUSE, IN REMISSION Active 05-01 00:00: 00 HISTORY OF FALLING Active 2023-05 00:00: 00 PERSONAL HISTORY OF COVID-19 Active 2023-05 00:00: 00 SKILLED NURSING (CURRENT) USE OF ANTICOAGULAN TS Active 2023-05 00:00: 00 PERIPHERAL VASCULAR ANGIOPLASTY [...] immediate release tablet 2023-05 00:00: 00 Yes [id number] PAIN 15 mg EVERY 6 HOURS NEEDED 15 mg EVERY 6 HOURS NEEDED (route: oral) Med Classific ation: Analgesic , Anti-infl ammatory or Antipyret ic clonazepam 0.5 mg tablet 2023-05 00:00: 00 Yes [id number] ANXIETY 0.5 mg 2 TIMES DAILY 0.5 mg 2 TIMES DAILY (route: oral) Med Classific ation: Central Nervous System Agents lisinopril 40 mg tablet 2023-05 00:00: 00 03-21 23:59 :00 No [id number] CAD 40 mg DAILY 40 mg DAILY (route: oral) Med Classific ation: Cardiovas cular Therapy Agents atorvastati n 80 mg tablet 2023-05 00:00: 00 Yes [id number] HYPERTENSIO N 80 mg DAILY 80 mg DAILY (route: oral) Med Classific ation: Cardiovas cular Therapy Agents cilostazol 50 mg tablet 2023-05 00:00: 00 Yes [id number] HYPERTENSIO N 50 mg 2 TIMES DAILY 50 mg 2 TIMES DAILY (route: oral) Med Classific ation: Hematolog ical Agents clopidogrel 75 mg tablet 2023-05 00:00: 00 03-21 23:59 :00 No [id number] CORONARY ARTERY DISEASE 75 mg DAILY 75 mg DAILY (route: oral) Med Classific ation: Hematolog ical Agents Eliquis 5 mg tablet 2023-05 00:00: 00 Yes [id number] ANTI ARRHYTHMIC 5 mg 2 TIMES DAILY 5 mg 2 TIMES DAILY (route: oral) Med Classific ation: Hematolog ical Agents furosemide 40 mg tablet 2023-05 00:00: 00 03-21 23:59 :00 No [id number] BPH 40 mg DAILY 40 mg DAILY (route: oral) Alternate Route: INTRA-MUS CULAR. Med Classific ation: Cardiovas cular Therapy Agents metoprolol tartrate 50 mg tablet 2023-05 00:00: 00 03-22 23:59 :00 No [id number] CAD 50 mg DAILY 50 mg DAILY (route: oral) Med Classific ation: Cardiovas cular Therapy Agents quetiapine 25 mg tablet 2023-05 00:00: 00 Yes [id number] MOOD STABILIZER 25 mg 2 TIMES DAILY 25 mg 2 TIMES DAILY (route: oral) Med Classific ation: Central Nervous System Agents sertraline 50 mg tablet 2023-05 00:00: 00 Yes [id number] MOOD STABILIZER 50 mg DAILY 50 mg DAILY (route: oral) Med Classific ation: Central Nervous System Agents tamsulosin 0.4 mg capsule 2023-05 00:00: 00 Yes [id number] BPH 0.4 mg DAILY 0.4 mg DAILY (route: oral) Med Classific ation: Genitouri nary Therapy docusate sodium 100 mg tablet 2023-05 00:00: 00 Yes [id number] CONSTIPATIO N 100 mg DAILY 100 mg DAILY (route: oral) Med Classific ation: Gastroint estinal Therapy Agents gabapentin 100 mg capsule 2023-05 00:00: 00 Yes [id number] PAIN 1-3 capsule BEDTIME 1-3 capsule BEDTIME (route: oral) Med Classific ation: Central Nervous System Agents metoprolol tartrate 25 mg tablet 2023-05 00:00: 00 03-27 16:09 :43.1 53 No [id number] HYPERTENSIO N 25 mg 2 TIMES DAILY 25 mg 2 TIMES DAILY (route: oral) Med Classific ation: Cardiovas cular Therapy Agents Multaq 400 mg tablet 2023-05 00:00: 00 Yes [id number] ANTIARRHYTH MICHAEL 400 mg 2 TIMES DAILY 400 mg 2 TIMES DAILY (route: oral) Med Classific ation: Cardiovas cular Therapy Agents furosemide 40 mg tablet 2023-05 00:00: 00 Yes [id number] edema 1 tablet DAILY 1 tablet DAILY (route: oral) Med Classific ation: Cardiovas cular Therapy Agents dextroamphe tamine-amph etamine 7.5 mg tablet 2023-05 00:00: 00 Yes [id number] attention 1 tablet DAILY 1 tablet DAILY (route: oral) Med Classific ation: Central Nervous System Agents metoprolol tartrate 25 mg tablet 2023-05 00:00: 00 Yes [id number] heart rate 0.5 tablet 2 TIMES DAILY 0.5 tablet 2 TIMES DAILY (route: oral) Med Classific ation: Cardiovas cular Therapy Agents cephalexin 500 mg capsule 2023-05 00:00: 00 04-10 23:59 :00 No [id number] CELLULITIS LLL 500 mg 4 TIMES DAILY 500 mg 4 TIMES DAILY (route: oral) Med Classific ation: Anti-Infe ctive Agents hydralazine 25 mg tablet 2023-05 00:00: 00 Yes [id number] HTN 25 mg 2 TIMES DAILY 25 mg 2 TIMES DAILY (route: oral) Med Classific ation: Cardiovas cular Therapy Agents Vital Signs Vital Name Observation Time Observation Value Commen ts Temperature 2024-05-21 09:14:00.000 98.6 [degF] Pulse 2024-05-21 09:14:00.000 60 /min O2 Saturation (%) 2024-05-21 09:14:00.000 98 % Respirations 2024-05-21 09:14:00.000 18 /min Weight (lbs) 2024-05-21 09:17:00.000 245 [lb_av] Systolic Blood Pressure 2024-05-21 09:14:00.000 120 mm [Hg] Diastolic Blood Pressure 2024-05-21 09:14:00.000 60 mm [Hg] Plan of Treatment Planned Activity Planned Date Details Comments Future Scheduled Test RN TO OBSE RVE, ASSESS, EVALUATE, AND DEVELOP AN INDIVIDUALIZED PLAN OF CARE. AGENCY MAY ACCEPT ORDERS FROM CONSULTING PHYSICIANS. RN TO OBSERVE AND ASSESS, CENTER LEAD CONSULTANT/DEPUTY GENERAL COUNSEL TO OBSERVE FOR RISK FOR FALLS AND INSTRUCT IN FALL PREVENTION, HOME SAFETY, MEDICATION MANAGEMENT, INFECTION PREVENTION, AND NUTRITION MANAGEMENT. RN/CENTER LEAD CONSULTANT/DEPUTY GENERAL COUNSEL NURSE MAY PERFORM O2 SATURATION LEVEL ON ADMISSION AND PRN FOR RN TO ASSESS/CENTER LEAD CONSULTANT TO OBSERVE PATIENT, WITH NOTIFICATION TO THE PHYSICIAN IF SATURATION IS 90% IN THE ABSENCE OF MORE SPECIFIC PARAMETERS FROM THE PHYSICIAN. AGENCY MAY PERFORM A RESUMPTION OF CARE VISIT FOLLOWING ANY HOSPITAL ADMISSION. RN/CENTER LEAD CONSULTANT/DEPUTY GENERAL COUNSEL TO MONITOR CO-MORBID CONDITIONS LISTED ON THE PLAN OF CARE AND ANY NEW CONDITIONS THAT PRESENT THEMSELVES DURING THIS EPISODE TO IDENTIFY CHANGES AND INTERVENE TO MINIMIZE COMPLICATIONS. [code = RN TO OBSERVE, ASSESS, EVALUATE, AND DEVELOP AN INDIVIDUALIZED PLAN OF CARE. AGENCY MAY ACCEPT ORDERS FROM CONSULTING PHYSICIANS. RN TO OBSERVE AND ASSESS, CENTER LEAD CONSULTANT/DEPUTY GENERAL COUNSEL TO OBSERVE FOR RISK FOR FALLS AND INSTRUCT IN FALL PREVENTION, HOME SAFETY, MEDICATION MANAGEMENT, INFECTION PREVENTION, AND NUTRITION MANAGEMENT. RN/CENTER LEAD CONSULTANT/DEPUTY GENERAL COUNSEL NURSE MAY PERFORM O2 SATURATION LEVEL ON ADMISSION AND PRN FOR RN TO ASSESS/CENTER LEAD CONSULTANT TO OBSERVE PATIENT, WITH NOTIFICATION TO THE PHYSICIAN IF SATURATION IS 90% IN THE ABSENCE OF MORE SPECIFIC PARAMETERS FROM THE PHYSICIAN. AGENCY MAY PERFORM A RESUMPTION OF CARE VISIT FOLLOWING ANY HOSPITAL ADMISSION. RN/CENTER LEAD CONSULTANT/DEPUTY GENERAL COUNSEL TO MONITOR CO-MORBID CONDITIONS LISTED ON THE PLAN OF CARE AND ANY NEW CONDITIONS THAT PRESENT THEMSELVES DURING THIS EPISODE TO IDENTIFY CHANGES AND INTERVENE TO MINIMIZE COMPLICATIONS.] Future Scheduled Test MEDICATION MANAGEMENT; RN/CENTER LEAD CONSULTANT/DEPUTY GENERAL COUNSEL TO REVIEW MEDICATIONS FOR INTERACTIONS, EFFECTIVENESS OF DRUG THERAPY, AND SIGNS/SYMPTOMS OF ADVERSE REACTIONS. MAY INSTRUCT AND REINFORCE MEDICATION TEACHING RELATED TO THE USE OF MEDICATIONS, DOSAGE, FREQUENCY, PURPOSE, SIDE EFFECTS, AND TO REPORT COMPLICATIONS. HELP SET UP BUBBLE PACKS [code = MEDICATION MANAGEMENT; RN/CENTER LEAD CONSULTANT/DEPUTY GENERAL COUNSEL TO REVIEW MEDICATIONS FOR INTERACTIONS, EFFECTIVENESS OF DRUG THERAPY, AND SIGNS/SYMPTOMS OF ADVERSE REACTIONS. MAY INSTRUCT AND REINFORCE MEDICATION TEACHING RELATED TO THE USE OF MEDICATIONS, DOSAGE, FREQUENCY, PURPOSE, SIDE EFFECTS, AND TO REPORT COMPLICATIONS. HELP SET UP BUBBLE PACKS] Future Scheduled Test RISK FOR H OSPITALIZATION; RN TO ASSESS/TEACH, DEPUTY GENERAL COUNSEL/CENTER LEAD CONSULTANT TO OBSERVE/TEACH PATIENT/CAREGIVER ON RISK FOR HOSPITALIZATION/EMERGENCY ROOM VISITS, TEACH SIGNS AND SYMPTOMS THAT PUT PATIENT AT RISK, WHEN TO NOTIFY NURSE/PHYSICIAN OF COMPLICATIONS/DECLINE, AND WHEN TO CALL 911. [code = RISK FOR HOSPITALIZATION; RN TO ASSESS/TEACH, DEPUTY GENERAL COUNSEL/CENTER LEAD CONSULTANT TO OBSERVE/TEACH PATIENT/CAREGIVER ON RISK FOR HOSPITALIZATION/EMERGENCY ROOM VISITS, TEACH SIGNS AND SYMPTOMS THAT PUT PATIENT AT RISK, WHEN TO NOTIFY NURSE/PHYSICIAN OF COMPLICATIONS/DECLINE, AND WHEN TO CALL 911.] Future Scheduled Test CARDIOVASC ULAR SYSTEM; RN TO ASSESS/TEACH, CENTER LEAD CONSULTANT/DEPUTY GENERAL COUNSEL TO OBSERVE/TEACH RELATED TO ALTERED CARDIOVASCULAR STATUS TO MINIMIZE COMPLICATIONS AND REDUCE HOSPITALIZATION. [code = CARDIOVASCULAR SYSTEM; RN TO ASSESS/TEACH, CENTER LEAD CONSULTANT/DEPUTY GENERAL COUNSEL TO OBSERVE/TEACH RELATED TO ALTERED CARDIOVASCULAR STATUS TO MINIMIZE COMPLICATIONS AND REDUCE HOSPITALIZATION.] Future Scheduled Test HYPERTENSI ON MANAGEMENT; RN TO ASSESS AND TEACH, CENTER LEAD CONSULTANT/DEPUTY GENERAL COUNSEL TO OBSERVE AND TEACH WARNING SIGNS AND SYMPTOMS TO AVOID HOSPITALIZATION. [code = HYPERTENSION MANAGEMENT; RN TO ASSESS AND TEACH, CENTER LEAD CONSULTANT/DEPUTY GENERAL COUNSEL TO OBSERVE AND TEACH WARNING SIGNS AND SYMPTOMS TO AVOID HOSPITALIZATION.] Future Scheduled Test ARRHYTHMIA MANAGEMENT; RN TO ASSESS AND TEACH, CENTER LEAD CONSULTANT/DEPUTY GENERAL COUNSEL TO OBSERVE AND TEACH WARNING SIGNS AND SYMPTOMS TO AVOID HOSPITALIZATION. [code = ARRHYTHMIA MANAGEMENT; RN TO ASSESS AND TEACH, CENTER LEAD CONSULTANT/DEPUTY GENERAL COUNSEL TO OBSERVE AND TEACH WARNING SIGNS AND SYMPTOMS TO AVOID HOSPITALIZATION.] Future Scheduled Test SKIN INTEG RITY RN TO ASSESS AND TEACH, CENTER LEAD CONSULTANT/DEPUTY GENERAL COUNSEL TO OBSERVE AND TEACH INTEGUMENTARY STATUS TO IDENTIFY CHANGES AND INTERVENE TO MINIMIZE COMPLICATIONS. PROVIDE SKILLED TEACHING OF GENERAL WOUND AND SKIN CARE AND PREVENTION RELATED TO POTENTIAL FOR ALTERED SKIN INTEGRITY [code = SKIN INTEGRITY RN TO ASSESS AND TEACH, CENTER LEAD CONSULTANT/DEPUTY GENERAL COUNSEL TO OBSERVE AND TEACH INTEGUMENTARY STATUS TO IDENTIFY CHANGES AND INTERVENE TO MINIMIZE COMPLICATIONS. PROVIDE SKILLED TEACHING OF GENERAL WOUND AND SKIN CARE AND PREVENTION RELATED TO POTENTIAL FOR ALTERED SKIN INTEGRITY ] Future Scheduled Test PAIN MANAG EMENT; RN TO ASSESS AND TEACH, DEPUTY GENERAL COUNSEL/CENTER LEAD CONSULTANT TO OBSERVE AND TEACH AND PROVIDE EDUCATION ON PAIN MANAGEMENT TECHNIQUES. [code = PAIN MANAGEMENT; RN TO ASSESS AND TEACH, DEPUTY GENERAL COUNSEL/CENTER LEAD CONSULTANT TO OBSERVE AND TEACH AND PROVIDE EDUCATION ON PAIN MANAGEMENT TECHNIQUES.] Future Scheduled Test FALL REDUC TION MANAGEMENT; RN TO ASSESS AND OBSERVE, CENTER LEAD CONSULTANT/DEPUTY GENERAL COUNSEL TO OBSERVE FALL RISK FACTORS AND EDUCATE PATIENT/CAREGIVER ON STRATEGIES TO MINIMIZE THE RISK OF FALLING. [code = FALL REDUCTION MANAGEMENT; RN TO ASSESS AND OBSERVE, CENTER LEAD CONSULTANT/DEPUTY GENERAL COUNSEL TO OBSERVE FALL RISK FACTORS AND EDUCATE PATIENT/CAREGIVER ON STRATEGIES TO MINIMIZE THE RISK OF FALLING.] Future Scheduled Test RESPIRATOR Y SYSTEM MANAGEMENT; RN TO ASSESS AND TEACH, CENTER LEAD CONSULTANT/DEPUTY GENERAL COUNSEL TO OBSERVE AND TEACH RELATED TO ALTERED RESPIRATORY STATUS TO MINIMIZE COMPLICATIONS AND REDUCE HOSPITALIZATION. [code = RESPIRATORY SYSTEM MANAGEMENT; RN TO ASSESS AND TEACH, CENTER LEAD CONSULTANT/DEPUTY GENERAL COUNSEL TO OBSERVE AND TEACH RELATED TO ALTERED RESPIRATORY STATUS TO MINIMIZE COMPLICATIONS AND REDUCE HOSPITALIZATION.] Goal 2024-05-16 Patient Goal - W OULD LIKE TO BE ABLE TO EAT AND SLEEP RIGHT. Goal Patient Goal - W OULD LIKE TO BE ABLE TO EAT AND SLEEP RIGHT. Goal Provider Goal - A PLAN OF CARE WILL BE ESTABLISHED THAT MEETS THE PATIENTS NEEDS. PATIENT WILL DEMONSTRATE OXYGEN SATURATION WITHIN NORMAL LIMITS OR PATIENTS OPTIMAL LEVEL ESTABLISHED BY THE PHYSICIAN THROUGHOUT CARE. CHANGES TO CO-MORBID CONDITIONS AND ANY NEW CONDITIONS WILL BE IDENTIFIED AND REPORTED TO THE PHYSICIAN. Goal Provider Goal - PATIENT/CAREGIVER TO VERBALIZE, AND CONSISTENTLY DEMONSTRATE EFFECTIVE, SAFE MANAGEMENT OF MEDICATION INCLUDING KNOWLEDGE OF EFFECTIVENESS, POTENTIAL SIDE EFFECTS AND DRUG REACTIONS AND WHEN TO CONTACT THE APPROPRIATE CARE PROVIDER. PATIENT/CAREGIVER WILL BE ABLE TO VERBALIZE UNDERSTANDING OF MEDICATION REGIMEN AND ACCURATELY TAKE MEDICATIONS PRESCRIBED WITHOUT ADVERSE EFFECTS BY Goal Provider Goal - PATIENT/CAREGIVER WILL VERBALIZE UNDERSTANDING OF SIGNS AND SYMPTOMS THAT PUT THE PATIENT AT RISK FOR HOSPITALIZATION /EMERGENCY ROOM VISITS, WHEN TO NOTIFY NURSE/PHYSICIAN OF COMPLICATIONS/DECLINE AND WHEN TO CALL 911. Goal Provider Goal - PATIENT / CAREGIVER WILL VERBALIZE/DEMONSTRATE UNDERSTANDING OF MEASURES TO MANAGE ALTERED CARDIOVASCULAR STATUS BY EOE Goal Provider Goal - PATIENT / CAREGIVER WILL VERBALIZE/DEMONSTRATE AN ABILITY TO ADHERE TO SELF-MANAGEMENT OF HTN TO MINIMIZE COMPLICATIONS AND AVOID HOSPITALIZATION BY END OF EPISODE. Goal Provider Goal - PATIENT / CAREGIVER WILL VERBALIZE/DEMONSTRATE AN ABILITY TO ADHERE TO SELF-MANAGEMENT OF HEART ARRHYTHMIA TO MINIMIZE COMPLICATIONS AND AVOID HOSPITALIZATION BY END OF EPISODE. Goal Provider Goal - CHANGES IN SKIN INTEGRITY STATUS WILL BE IDENTIFIED AND REPORTED TO THE PHYSICIAN FOR PROMPT INTERVENTION. PATIENT / CAREGIVER WILL VERBALIZE/DEMONSTRATE ADEQUATE KNOWLEDGE OF INTEGUMENTARY STATUS AND APPROPRIATE MEASURES TO PROMOTE SKIN INTEGRITY AND PREVENT INJURY BY EOE Goal Provider Goal - PATIENT / CAREGIVER WILL VERBALIZE / DEMONSTRATE UNDERSTANDING OF PAIN CONTROL MEASURES BY EOE Goal Provider Goal - PATIENT/CAREGIVER WILL VERBALIZE/DEMONSTRATE UNDERSTANDING OF FALL RISK FACTORS AND IMPLEMENT STRATEGIES TO MINIMIZE FALL RISK. PATIENT/CAREGIVER WILL VERBALIZE/DEMONSTRATE AN ABILITY TO ADHERE TO FALL REDUCTION SELF-MANAGEMENT AND LIFE-STYLE CHANGES BY EOE Goal Provider Goal - PATIENT / CAREGIVER WILL VERBALIZE/DEMONSTRATE UNDERSTANDING OF MEASURES TO MANAGE ALTERED RESPIRATORY STATUS BY END OF EPISODE. Encounters Start Date/Time End Date/Time Encounter Type Admission Type Attending [facility] Care Department Encounter ID Discharge Date Discharge Status Discharge Condition Discharge Reason Percent Goals Met 2024-03-22 00:00:00 2024-07-19 00:00:[facility] D[facility] [id number]
--- OUTSIDE RECORDS SUMMARY | 2024-05-27 13:51 | XMS_ITS | Encounter Summary ---
Author Organization [employer] Address [address] [place] [address] Care Team Providers Care Grounds Manager Name Role Phone Sesar Pereyra MD Primary Care Provider [phone] Reason for Visit * Reason Onset Date Comments Med Refill 04/26/2024 Encounter Details Date Type Department Care Team ([facility] st Contact Info) Description 04/26/2024 Telephone [facility] [address] [place] [address] Sesar Pereyra MD [address] [place] [address] Med Refill Social History Tobacco Use Types Packs/Day Years Used Date Smoking Tobacco: Former Cigarettes Passive Smoke Exposure: Past Smokeless Tobacco: Never Comments:Quit 35 years ago. Depression Answer Date Recorded Patient Health Questionnaire-9 Score 16 07/19/2023 Patient Health Questionnaire-9 Score 16 07/19/2023 Last PHQ-9: Questionnaire Data Not on file 0 07/19/2023 Housing Stability Answer Date Recorded What is your housing situation today? I have yenny sing 07/12/[address] you li ve. Do you have problems with any of the following? None of the above 07/12/2023 Food Insecurity Answer Date Recorded Within the past 12 months, y ou worried that your food would run out before you got money to buy more: Never True 07/12/2023 Within the past 12 months,th e food you bought just didn't last and you didn't have enough money to get more: Never True Transportation Answer Date Recorded In the past 12 months, has l ack of transportation kept you from medical appts, meetings, work or from getting things needed for daily living? No 07/12/2023 Utilities Answer Date Recorded In the past 12 months, has t he electric, gas, oil or water company threatened to shut off services in your home? No 07/12/2023 Depression Answer Date Recorded Patient Health Questionnaire-2 Score 4 07/19/2023 Sex and Gender Information Value Date Recorded Sex Assigned at Male 02/28/2022 10:24 AM EDT Legal Sex Male 10:24 AM EDT Gender Identity Male 02/28/2022 10:24 AM EDT Sexual Orientation Choose not to disclose 2021 10:24 AM EDT documented as of this encounter Miscellaneous Notes * Telephone Encounter - Memo Bernabe - 04/26/2024 10:33 AM EST TC from pt requesting medication refill. Medications needing refill: amphetamine-dextroamphetamine (Adderall) 7.5 MG tablet To be sent to: [id number] - [place], [place] - [address] documented in this encounter Plan of Treatment Upcoming Encounters Date Type Department Care Team (Late st Contact Info) Description 06/13/2024 1:00 PM EST Office Visit [facility] [address] [place] [address] Sesar Pereyra MD [address] [place] [address] documented as of this encounter Visit Diagnoses Not on filedocumented in this encounter Additional Health Concerns Assessment Noted Time PHQ-9 Depression Total Score: 16 024 10:59 AM EDT documented as of this encounter Care Teams Grounds Manager Relationship Specialty Start Date End Date Sesar Pereyra MD [address] [place] [address] PCP - General Internal Medicine 03/01/21 [facility] 03/22/24 documented as of this encounter
--- OUTSIDE RECORDS SUMMARY | 2024-05-27 13:51 | XMS_ITS | Encounter Summary ---
Author Organization [employer] Address [address] [place] [address] Care Team Providers Care Machining And Assembly Supervisor Name Role Phone Sesar Pereyra MD Primary Care Provider [phone]- [phone] Reason for Visit * Reason Onset Date Comments Nurse Triage 04/29/2024 Encounter Details Date Type Department Care Team ([facility] st Contact Info) Description 04/29/2024 Telephone [facility] PEDS [address] [place] [address] Sesar Pereyra MD [address] [place] [address] Nurse Triage Social History Tobacco Use Types Packs/Day Years Used Date Smoking Tobacco: Former Cigarettes Passive Smoke Exposure: Past Smokeless Tobacco: Never Comments:Quit 35 years ago. Depression Answer Date Recorded Patient Health Questionnaire-9 Score 16 07/19/2023 Patient Health Questionnaire-9 Score 16 07/19/2023 Last PHQ-9: Questionnaire Data Not on file 0 07/19/2023 Housing Stability Answer Date Recorded What is your housing situation today? I have yennysayra raman 07/12/[address] you li [...] encounter Miscellaneous Notes * Telephone Encounter - Verona Thompson RN - 04/29/2024 1:50 PM EST TC to pt to notify pain medication has been sent to pharmacy. Pt states he is pick it up currently.Would like to address his leg situation (numbness and tingling) and see if gabapentin could be increased. Explained PCP would review and discuss at upcoming 05/08/24 appointment. Encouraged patientto seek treatment at [facility] Walk in clinic for increased pain in lower extremities Patient agrees withthe plan and states verbal understanding. * Telephone Encounter - Peggy Bobby LPN - 04/29/2024 11:58 AM EST Triage call returned to patient who reports pain as he reports related to Neuropathy. Patient reports pins and needles in feet and that it is making it difficult to sleep. Patient reports that he is taking Gabapentin 100 mg two times daily. Had a fall and had a fracture in clavicle and that combination of two causing discomfort. Patient reports that swelling in lower legs continues and no rednessnoted. Has [facility]NA coming in tomorrow per routine. No shortness of breath with exertion and reports that swelling is chronic. Patient confirms that he completed ABT as ordered for cellulitis earlier thismonth. Patient reports takin ES Tylenol ineffective and that Pain medication previously ordered allowed him to sleep. Disposition reviewed and patient in agreement with plan. Declined [facility] Walk In Center today and next available appt 05/08/24 with PCP too far away PCP and Team tasked to follow withpatient for review of meds for pain.Forwarded to PCP and team as FYI to follow up PRN Multiple (4) protocols were used on this call. Disposition for Call: Discuss with PCP and Callback by Nurse within 1 Hour Protocol Used: Medication Question Call (Adult) Protocol-Based Disposition: Discuss with PCP and Callback by Nurse within 1 Hour Video visit not offered Positive Triage Question: * Caller has URGENT medicine question about med that PCP or specialist prescribed and triager unable to answer question * All higher-acuity triage questions were negative Care Advice Discussed: * Reasons To Call Back - You become worse Protocol Used: Leg Swelling and Edema (Adult) Protocol-Based Disposition: See in Office or Video Visit Today Positive Triage Question: * Moderate swelling of both ankles (e.g., swelling extends up to the knees) AND new-onset or getting worse * All higher-acuity triage questions were negative Protocol Used: Foot Pain (Adult) Protocol-Based Disposition: See in Office or Video Visit within 3 Days Positive Triage Question: * Tingling in feet and new or increased * All higher-acuity triage questions were negative Care Advice Discussed: * Pain Medicines * Reasons To Call Back - Severe pain not relieved by pain medicine - Pain lasts over 7 days - You become worse Protocol Used: Shoulder Injury (Adult) Protocol-Based Disposition: See in Office or Video Visit within 3 Days Video visit not offered Positive Triage Question: * Injury is still painful or swollen after 2 weeks * All higher-acuity triage questions were negative Care Advice Discussed: * Rest vs. Movement * Reasons To Call Back - You become worse * Telephone Encounter - Shilpa Godoy - 04/29/2024 10:36 AM EST Symptom: Leg Pain ( neuropathy) - Not From Injury Outcome: Schedule an urgent appointment (within 1 hour) or talk to a nurse or provider soon Reason: Trouble walking The caller accepted this outcome. documented in this encounter Plan of Treatment Upcoming Encounters Date Type Department Care Team ([facility] st Contact Info) Description 06/13/2024 1:00 PM EST Office Visit [facility] MED & PEDS [address] [place] [address] Sesar Pereyra MD [address] [place] [address] documented as of this encounter Visit Diagnoses Not on filedocumented in this encounter Additional Health Concerns Assessment Noted Time PHQ-9 Depression Total Score: 16 07/18/ 024 10:59 AM EDT documented as of this encounter Care Teams Machining And Assembly Supervisor Relationship Specialty Start Date End Date Sesar Pereyra MD [address] [place] [address] PCP - General Internal Medicine 03/01/21 [facility] 03/22/24 documented as of this encounter
--- OUTSIDE RECORDS SUMMARY | 2024-05-27 13:51 | XMS_ITS | Encounter Summary ---
Author Organization [employer] Address [address] [facility] 7t [place] [address] Care Team Providers Care Prefabricated Houses Trimmer Name Role Phone Sesar Pereyra MD Primary Care Provider +1- [phone] Reason for Visit * Reason Onset Date Comments Med Refill 04/28/2024 Encounter Details Date Type Department Care Team ([facility] st Contact Info) Description 04/28/2024 Refill [facility] MED & PEDS [address] [place] [address] Sesar Pereyra MD [address] [place] [address] Social History Tobacco Use Types Packs/Day Years Used Date Smoking Tobacco: Former Cigarettes Passive Smoke Exposure: Past Smokeless Tobacco: Never Comments:Quit 35 years ago. Depression Answer Date Recorded Patient Health Questionnaire-9 Score 16 07/19/2023 Patient Health Questionnaire-9 Score 16 07/19/2023 Last PHQ-9: Questionnaire Data Not on file 0 07/19/2023 Housing Stability Answer Date Recorded What is your housing situation today? I have yenny raman 07/12/[address] you [...] AM EDT documented as of this encounter Plan of Treatment Upcoming Encounters Date Type Department Care Team (Late st Contact Info) Description 06/13/2024 1:00 PM EST Office Visit [facility] MED & PEDS [address] [place] [address] Sesar Pereyra MD [address] [place] [address] documented as of this encounter Visit Diagnoses Not on filedocumented in this encounter Additional Health Concerns Assessment Noted Time PHQ-9 Depression Total Score: 16 024 10:59 AM EDT documented as of this encounter Care Teams Prefabricated Houses Trimmer Relationship Specialty Start Date End Date Sesar Pereyra MD [address] [place] [address] PCP - General Internal Medicine 03/01/21 [facility] 03/22/24 documented as of this encounter
--- OUTSIDE RECORDS SUMMARY | 2024-05-27 13:51 | XMS_ITS | Encounter Summary ---
Author Organization [facility] [facility] [employer] Address 75 [facility] 7t [place] [address] Care Team Providers Care Scientific Informatics Leader Name Role Phone Sesar Pereyra MD Primary Care Provider +1- [phone] Encounter Details Date Type Department Care Team ([facility] st Contact Info) Description 04/01/2024 Orders Only [facility] MED & PEDS [address] [place], [place] [phone] Sesar Pereyra MD 505 [place] [address] Essential hypertension (Primary Dx) Social History Tobacco Use Types Packs/Day Years [...] Upcoming Encounters Date Type Department Care Team ([facility] st Contact Info) Description 06/13/2024 1:00 PM EST Office Visit [facility] MED & PEDS [address] [place] [address] Sesar Pereyra MD [address] [place] [address] documented as of this encounter Visit Diagnoses Diagnosis Essential hypertension- Primary Unspecified essential hypertension documented in this encounter Additional Health Concerns Assessment Noted Time PHQ-9 Depression Total Score: 16 024 10:59 AM EDT documented as of this encounter Care Teams Scientific Informatics Leader Relationship Specialty Start Date End Date Sesar Pereyra MD [address] [place] [address] PCP - General Internal Medicine 03/01/21 [facility] [employer] 03/22/24 documented as of this encounter
--- OUTSIDE RECORDS SUMMARY | 2024-05-27 13:51 | XMS_ITS | Encounter Summary ---
Author Organization [employer] Address 75 [facility] 7t [place] [address] Care Team Providers Care Inclusion Teacher Name Role Phone Sesar Pereyra MD Primary Care Provider +1- [phone] Encounter Details Date Type Department Care Team ([facility] st Contact Info) Description 04/29/2024 Orders Only [facility] MED & PEDS [address] [place], [place] [phone] Sesar Pereyra MD 505 [place] [address] Closed nondisplaced fracture of acromial end of right clavicle, initial encounter Social History Tobacco Use Types Packs/Day Years [...] 1:00 PM EST Office Visit [facility] MED & PEDS [address] [place] [address] Sesar Pereyra MD [address] [place] [address] documented as of this encounter Visit Diagnoses Diagnosis Closed nondisplaced fracture of acromial end of right clavicle, initial encounter documented in this encounter Additional Health Concerns Assessment Noted Time PHQ-9 Depression Total Score: 16 024 10:59 AM EDT documented as of this encounter Care Teams Inclusion Teacher Relationship Specialty Start Date End Date Sesar Pereyra MD 505 [place] [address] PCP - General Internal Medicine 03/01[facility] 03/[facility]/24 documented as of this encounter
--- OUTSIDE RECORDS SUMMARY | 2024-05-27 13:51 | XMS_ITS | Encounter Summary ---
Author Organization [employer] Address [address] [facility] 7t [place] [address] Care Team Providers Care Blood Collector Name Role Phone Sesar Pereyra MD Primary Care Provider +1- [phone] Reason for Visit * Reason Onset Date Comments FYI 10/07/2022 Encounter Details Date Type Department Care Team ([facility] st Contact Info) Description 10/07/2022 Telephone [facility] MEDIC[facility] [address] [place] [address] Sesar Pereyra MD [address] [place] [address] FYI Social History Tobacco Use Types Packs/Day Years [...] suspected to have Coronavirus/COVID-19? No / Unsure 10/26/2022 11:08 AM EDT documented as of this encounter Miscellaneous Notes * Telephone Encounter - Cedrick Segovia RN - 10/07/2022 9:50 AM EDT Message below noted. Will forward to PCP to inform. Pt to f/u with [facility] following ED visit. * Telephone Encounter - Jacquelyn Abel - 10/07/2022 8:44 AM EDT Tc from pt would like to inform PCP that he will be going to the ER due to having lower back pain (left side ). Advised will leave a message as a FYI. If any questions or concerns please contact at [phone] documented in this encounter Plan of Treatment Upcoming Encounters Date Type Department Care Team ([facility] st Contact Info) Description 06/13/2024 1:00 PM EST Office Visit [facility] MED & PEDS [address] [place] [address] Sesar Pereyra MD [address] [place], [place] [phone] documented as of this encounter Visit Diagnoses Not on filedocumented in this encounter Care Teams Blood Collector Relationship Specialty Start Date End Date Sesar Pereyra MD [address] [place] [address] PCP - General Internal Medicine 03/01/21 [facility] 03/22/24 documented as of this encounter
--- OUTSIDE RECORDS SUMMARY | 2024-05-27 13:51 | XMS_ITS | Encounter Summary ---
Author Organization [employer] Address 75 [facility] 7t [place] [address] Care Team Providers Care Computer Hardware Engineer Name Role Phone Sesar Pereyra MD Primary Care Provider +1- [phone] Reason for Visit * Reason Onset Date Comments Med Refill 04/11/2024 Encounter Details Date Type Department Care Team (Late st Contact Info) Description 04/11/[address] [facility] MEDICINE [address] [place] [address] Natasha Jiang MD [address] [place] [address] Closed nondisplaced fracture of acromial end of [...] your housing situation today? I have yenny lamine 07/12/[address] you li [...] Upcoming Encounters Date Type Department Care Team ([facility] st Contact Info) Description 06/13/2024 1:00 PM EST Office Visit [facility] MED & PEDS [address] [place] [address] Sesar Pereyra MD [address] [place] [address] documented as of this encounter Visit Diagnoses Diagnosis Closed nondisplaced fracture of acromial end of right clavicle, initial encounter documented in this encounter Additional Health Concerns Assessment Noted Time PHQ-9 Depression Total Score: 16 024 10:59 AM EDT documented as of this encounter Care Teams Computer Hardware Engineer Relationship Specialty Start Date End Date Sesar Pereyra MD 505 [place] [address] PCP - General Internal Medicine 03/01/21 [facility] 03/22/24 documented as of this encounter
--- OUTSIDE RECORDS SUMMARY | 2024-05-27 13:51 | XMS_ITS | Encounter Summary ---
Author Organization [email or web address] Address 75 [facility] [address] [place] [address] Care Team Providers Care Measurement And Verification Engineer Name Role Phone Sesar Pereyra MD Primary Care Provider +1- [phone] Encounter Details Date Type Department Care Team ([facility] Contact Info) Description 10/13/[address] [facility] MED & PEDS [address] [place] [address] Sesar Pereyra MD [address] [place] [address] Social History Tobacco Use Types Packs/Day Years [...] PM EST Office Visit [facility] MED & PEDS [address] [place], [place] [phone] Sesar Pereyra MD [address] [place] [address] documented as of this encounter Visit Diagnoses Not on filedocumented in this encounter Care Teams Measurement And Verification Engineer Relationship Specialty Start Date End Date Sesar Pereyra MD [address] [place] [address] PCP - General Internal Medicine 03/01/21 [facility] 03/22/24 documented as of this encounter
--- OUTSIDE RECORDS SUMMARY | 2024-05-27 13:51 | XMS_ITS | Encounter Summary ---
Author Organization [employer] Address 75 [facility] 7t [place] [address] Care Team Providers Care Settlement Clerk Name Role Phone Sesar Pereyra MD Primary Care Provider +1- [phone] Reason for Visit * Reason Comments Med Refill Encounter Details Date Type Department Care Team ([facility] Contact Info) Description 10/26/2022 Refill [facility] MED & PEDS [address] [place] [address] Sesar Pereyra MD 505 [place] [address] Social History Tobacco Use Types Packs/Day Years [...] Description 06/13/2024 1:00 PM EST Office Visit [facility] MED & PEDS [address] [place] [address] Sesar Pereyra MD 505 [place] [address] documented as of this encounter Visit Diagnoses Not on filedocumented in this encounter Care Teams Settlement Clerk Relationship Specialty Start Date End Date Sesar Pereyra MD [address] [place] [address] PCP - General Internal Medicine 03/01/21 [facility] 03/22/24 documented as of this encounter
--- OUTSIDE RECORDS SUMMARY | 2024-05-27 13:51 | XMS_ITS | Encounter Summary ---
Author Organization [employer] Address [address] [facility] 7t [place] [address] Care Team Providers Care Obgyn Specialist Name Role Phone Sesar Pereyra MD Primary Care Provider +1 [phone] Encounter Details Date Type Department Care Team (Late st Contact Info) Description 04/02/2024 Orders Only [facility] [address] [place] [address] Provider, MD Jazmyn Social History Tobacco Use Types Packs/Day Years [...] Description 06/13/2024 1:00 PM EST Office Visit [facility] MED & PEDS [address] [place] [address] Sesar Pereyra MD 505 [place] [address] documented as of this encounter Procedures Procedure Name Priority Date/Time Associated Diagnosis Comments ECG 12-LEAD Routine 03/27/2024 9:23 AM EST documented in this encounter Results * ECG 12 lead (03/27/2024 9:23 AM EST) us Historical Provider ECG ORDERABLES Final Res ult documented in this encounter Visit Diagnoses Not on filedocumented in this encounter Additional Health Concerns Assessment Noted Time PHQ-9 Depression Total Score: 16 024 10:59 AM EDT documented as of this encounter Care Teams Obgyn Specialist Relationship Specialty Start Date End Date Seasr Pereyra MD 505 [place] [address] PCP - General Internal Medicine 03/01/[facility] 03/[facility]/24 documented as of this encounter
--- OUTSIDE RECORDS SUMMARY | 2024-05-27 13:51 | XMS_ITS | Encounter Summary ---
Author Organization [employer] Address 75 [facility] 7t [place] [address] Care Team Providers Care Order Fulfillment Specialist Name Role Phone Sesar Pereyra MD Primary Care Provider +1- [phone] Reason for Visit * Reason Onset Date Comments Med Refill 04/02/2024 Encounter Details Date Type Department Care Team ([facility] st Contact Info) Description 04/02/2024 Telephone [facility] MEDICINE [address] [place] [address] Sesar Pereyra MD 505 [place] [address] Med Refill Social History Tobacco Use Types [...] encounter Miscellaneous Notes * Telephone Encounter - Chhaya Mills LPN - 04/02/2024 9:39 AM EST Medication was sent to [facility] on 04/01/24 #30 with 11 refills. * Telephone Encounter - Miri Young - 04/02/2024 9:33 AM EST TC from pt requesting medication refill. Medications needing refill : metoprolol tartrate (Lopressor) 25 MG tablet To be sent to: [facility] documented in this encounter Plan of Treatment Upcoming Encounters Date Type Department Care Team (Late st Contact Info) Description 06/13/2024 1:00 PM EST Office Visit [facility] MED & PEDS [address] [place] [address] Sesar Pereyra MD [address] [place] [address] documented as of this encounter Visit Diagnoses Not on filedocumented in this encounter Additional Health Concerns Assessment Noted Time PHQ-9 Depression Total Score: 16 024 10:59 AM EDT documented as of this encounter Care Teams Order Fulfillment Specialist Relationship Specialty Start Date End Date Sesar Pereyra MD [address] [place] [address] PCP - General Internal Medicine 03/01/21 [facility] 03/22/24 documented as of this encounter
--- OUTSIDE RECORDS SUMMARY | 2024-05-27 13:51 | XMS_ITS | Encounter Summary ---
Author Organization [employer] Address 75 [facility] 7t [place] [address] Care Team Providers Care Metal Sprayer Protective Coating Name Role Phone Sesar Pereyra MD Primary Care Provider +1- [phone] Reason for Visit * Reason Comments Med Refill Encounter Details Date Type Department Care Team ([facility] Contact Info) Description 04/30/2024 Refill [facility]C MED & PEDS [address] [place], [place] [phone] Sesar Pereyra MD [address] [place] [address] Longstanding persistent atrial fibrillation (CMS/HCC); PVD (peripheral vascular disease) (CMS/HCC) Social History Tobacco Use Types Packs/Day Years [...] Description 06/13/2024 1:00 PM EST Office Visit [facility] MED & PEDS [address] [place] [address] Sesar Pereyra MD [address] [place] [address] documented as of this encounter Visit Diagnoses Diagnosis Longstanding persistent atrial fibrillation (CMS/HCC) PVD (peripheral vascular disease) (CMS/HCC) Unspecified peripheral vascular disease documented in this encounter Additional Health Concerns Assessment Noted Time PHQ-9 Depression Total Score: 16 024 10:59 AM EDT documented as of this encounter Care Teams Metal Sprayer Protective Coating Relationship Specialty Start Date End Date Sesar Pereyra MD [address] [place] [address] PCP - General Internal Medicine 03/01/21 [facility] 03/22/24 documented as of this encounter
--- OUTSIDE RECORDS SUMMARY | 2024-05-27 13:53 | XMS_ITS | Encounter Summary ---
Author Organization [employer] Address 75 [facility] 7t [place] [address] Care Team Providers Care Floor Director Name Role Phone Sesar Pereyra MD Primary Care Provider +1- [phone] Reason for Visit * Reason Onset Date Comments Nurse Triage 05/06/2024 Encounter Details Date Type Department Care Team ([facility] st Contact Info) Description 05/06/2024 Telephone [facility] MED & PEDS [address] [place] [address] Sesar Pereyra MD [address] [place] [address] Nurse Triage Social History Tobacco Use Types [...] encounter Miscellaneous Notes * Telephone Encounter - Peggy Bobby LPN - 05/06/2024 9:31 AM EST Triage call returned to patient who reports off and on right flank pain now for 3-4 days. Somewhat positional no recent lifting or accident or injury. No fever. Has had kidney stones in the past and feels this may be the start on another. No acute pain at present. No nausea or vomiting no fever blood or pus in urine. Reports urine stream is slow to start and takes a long time to finish voiding. Patient drinking only two cups of water daily. PO water encouraged. Disposition reviewed and patient in agreement with plan. ASK/ tomorrow at 915am for evaluation. Reviewed with patient reasons to call back and symptoms that require immediate evaluation in the [facility] ED. Patient verbalized understanding and in agreement with plan. Protocol Used: Flank Pain (Adult) Protocol-Based Disposition: See in Office or Video Visit within 3 Days Video visit not offered Positive Triage Question: * History of kidney stones * All higher-acuity triage questions were negative Care Advice Discussed: * Pain Medicines * Reasons To Call Back - Fever over 100.4 F (38.0 C) - Burning with urination or blood in urine - Pain lasts over 3 days - You become worse * Telephone Encounter - Shilpa Godoy - 05/06/2024 8:55 AM EST Patient calling to report possible kidney stones . Patient speaks Yemeni. Advised triage nurse will call patient back. documented in this encounter Plan of Treatment Upcoming Encounters Date Type Department Care Team ([facility] st Contact Info) Description 06/13/2024 1:00 PM EST Office Visit [facility] MED & PEDS [address] [place] [address] Sesar Pererya MD [address] [place] [address] documented as of this encounter Visit Diagnoses Not on filedocumented in this encounter Additional Health Concerns Assessment Noted Time PHQ-9 Depression Total Score: 16 024 10:59 AM EDT documented as of this encounter Care Teams Floor Director Relationship Specialty Start Date End Date Sesar Pereyra MD [address] [place] [address] PCP - General Internal Medicine 03/01/[facility] 03/22/24 documented as of this encounter
--- OUTSIDE RECORDS SUMMARY | 2024-05-27 13:53 | XMS_ITS | Encounter Summary ---
Author Organization [employer] Address 75 [facility] 7t [place] [address] Care Team Providers Care Dress Marker Name Role Phone Sesar Pereyra MD Primary Care Provider +1- [phone] Reason for Visit * Reason Onset Date Comments Medication Question 05/23/2024 Encounter Details Date Type Department Care Team ([facility] st Contact Info) Description 05/23/2024 Telephone [facility] MEDICINE [address] [place] [address] Sesar Pereyra MD [address] [place] [address] Medication Question Social History Tobacco Use Types Packs/Day Years [...] * Telephone Encounter - Memo Bernabe - 05/23/2024 10:50 AM EST Tc from [facility] stating pt has transferred pharmacy but they would need pcp to send script for Aspirin Low Dose 81 MG EC tablet and atorvastatin (Lipitor) 80 MG tablet to be sent. If any questions you can contact [facility] at [phone]. documented in this encounter Plan of Treatment Upcoming Encounters Date Type Department Care Team ([facility] st Contact Info) Description 06/13/2024 1:00 PM EST Office Visit [facility] MED & PEDS [address] [place] [address] Sesar Pereyra MD [address] [place] [address] documented as of this encounter Visit Diagnoses Diagnosis Primary hypertension Unspecified essential hypertension Hypercholesterolemia Pure hypercholesterolemia documented in this encounter Additional Health Concerns Assessment Noted Time PHQ-9 Depression Total Score: 16 024 10:59 AM EDT documented as of this encounter Care Teams Dress Marker Relationship Specialty Start Date End Date Sesar Pereyra MD [address] [place] [address] PCP - General Internal Medicine 03/01/21 [facility] 03/22/24 documented as of this encounter
--- OUTSIDE RECORDS SUMMARY | 2024-05-27 13:53 | XMS_ITS | Clinical Summary ---
Author Organization [facility] Address [address] [place] [address] Care Team Providers Care Brick Veneer Maker Name Role Phone Nuha Galvin PA-C Primary Care Provider [phone] Source Comments PLEASE NOTE, if this patient is a minor, it may be UNLAWFUL to discuss sensitive information that is contained in these records (such as FAMILY PLANNING, MENTAL HEALTH or SUBSTANCE ABUSE) with the minor patient's parent or other person without the patient's specific authorization.[facility] Allergies No known active allergies Medications citalopram (CELEXA) 40 mg tablet 02/12/2014 Active clonazePAM (KLONOPIN) 0.5 mg tablet 03/14/2014 Active simvastatin (ZOCOR) 40 mg tablet Take 1 Tab by mouth nightly at bedtime. 04/01/2014 Active dexamethasone (DECADRON) 10 mg/mL injection Inject 1 mL into the muscle once. 1 mL 0 04/01/2014 Active tadalafil (CIALIS) 5 mg tabletIndicatio ns:Impotence of organic origin Take 1 Tab by mouth once daily as needed for erectile dysfunction. Do not take more than one dose in 24 hours. Do not take with nitrates. 30 Tab 0 07/03/2014 Active cyclobenzaprine (FLEXERIL) 10 mg tabletIndicatio ns:Midline low back pain without sciatica Take 1 Tab by mouth nightly at bedtime as needed for muscle spasms. 14 Tab 0 10/27/2014 Active naproxen (NAPROSYN) 500 mg tabletIndicatio ns:Midline low back pain without sciatica Take 1 Tab by mouth 2 (two) times daily with a meal. 60 Tab 0 10/28/2014 Active melatonin 3 mg tabletIndicatio ns:Sleep disorder Take 1 Tab by mouth nightly at bedtime as needed for sleep. 30 Tab 0 01/02/2015 Active lisinopril (PRINIVIL,ZESTR IL) 10 mg tablet Take 1 Tab by mouth once daily. 30 Tab 3 06/10/2015 Active citalopram (CELEXA) 40 mg tablet Take 1 Tab by mouth daily. 06/24/2015 Active clonazePAM (KLONOPIN) 0.5 mg tablet Take 1 Tab by mouth daily as needed for Anxiety. 06/24/2015 Active sildenafil (VIAGRA) 100 mg tablet Take 1 Tab by mouth once daily as needed for erectile dysfunction. 4 Tab 0 03/30/2016 Active Active Problems Problem Noted Date Diagnosed Date Sleep disorder 02/02/2015 Overview (02/02/2015): Saw [facility] and sleep on 01/15/2015: Dr. Johnson Likely DILLAN sleep study ordered. Given that he has RLS, He may have periodic limb movement disorder which can be checked for in the study. Check ferritin. Will await sleep study. 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 Dr. Easton, urologist, see him once a year. In remission Seen at [facility] urology Depression with anxiety 04/01/2014 Overview (04/01/2014): Dr. Pradhan at [facility]. Is going to establish care at a new facility. PVD (peripheral vascular dis ease) with claudication ([facility]) 04/01/2014 Overview (07/04/2014): Fem-Fem done by Dr. Hensley in 2006. Sees this doctor once a year at [facility]. Follows up with this facility every 6 months. 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 4.[address] Herbert Pt had a CT scan done on 06/28/2014 of chest with contrast at [facility]: Impression: Minimal interval increase in size of the ascending Thoracic aneurysm, measuring 4.8cm in diameter. Mild patchy ground glass appearance opacity in the right upper lobe posteriorly mostlikely represents an infectious/inflammatory process. Unchanged 5mm groundglass nodule in the lingula since 2009. It has been stable for over three years, no follow up is necessary. Pt had Follow up appt with cardiology Dr. Harrison on 03/04/2015: will recheck aneurysm periodically: Now 4.6 cm. Pt asked for an ECHO to check heart size. Advise to use HTN and HL medications to prevent it from getting bigger. ECHO: Impression done 03/06/2015: Normal LV and systolic function. Mild diastolic relaxation abnormality. LV EF 55-60% Aortic root 4.4 cm and asceding aorta 4.1 cm. No valve disease. Exercise myocardial perfusion scan: Done on 03/18/2015: Exercised to 80% of the maximal heart rate without chest pain. EKG change did not meet criteria of ischemia. Perfusion images demonstrates no definitive evidence of ischemia or infarct. Normal left ventricular size and systolic function capacity. Severe SOB and mild hypoxia with exercise. Hypercholesteremia 04/01/2014 Hypertension 04/01/2014 Degenerative lumbar spinal stenosis 04/01/2014 Overview (04/01/2014): MRI done 07/15/2013 Impression: degenerative changes and spondylolistheses. Left L4 nerve root impingement cannot be excluded to neuroforaminal stenosis at L4-L5 Steroid injections given07/25/2013 History of cataract surgery 04/01/2014 Degenerative joint disease (DJD) of hip 04/01/20 14 Overview (04/01/2014): Xray done in 2008 to confirm degenerative changes. Immunizations Name Administration Dates Next Due INFLUENZA, SEASONAL, INJECTABLE 02/02/2015,04/15 PNEUMOCOCCAL POLYSACCHARIDE PPV23 02/19/2015, Zoster, Live Vaccine (Zostavax) 07/11/2014 Social History Tobacco Use Types Packs/Day Years Used Date Smoking Tobacco: Former Cigarettes Alcohol Use Standard Drinks/Week Comments No 0 (1 standard drink = 0.6 oz pur e alcohol) Social Connections Answer Date Recorded Social Connections and Isolation 0 12/20/2018 Financial Resource Strain Answer Date R ecorded Financial Resource Strain 0 2018 Stress Answer Date Recorded Stress 0 12/20/2018 Physical Activity Answer Date Recorded Physical Activity 0 12/20/2018 Food Insecurity Answer Date Recorded Food 0 12/20/2018 Transportation Needs Answer Date Record ed Transportation 0 12/20/2018 Housing Stability Answer Date Recorded Housing 0 12/20/2018 Safety and Environment Answer Date Chele rded Safety 0 12/20/2018 Utilities Answer Date Recorded Utilities 0 12/20/2018 Employment Answer Date Recorded Employment 0 12/20/2018 Sex and Gender Information Value Date Recorded Sex Assigned at Not on file Legal Sex Male 8:39 AM PST Gender Identity Not on file Sexual Orientation Not on file Occupation Industry Job Start Date Job End Date retired Not on file Not on file Not on file Last Filed Vital Signs Vital Sign Reading Time Taken Comments Blood Pressure 120/80 07/13/2015 9:42 AM EDT Pulse 80 07/13/2015 9:42 AM EDT Temperature 36.6 ??C (97.8 ??F) 07/13/2015 9:42 AM ED T Respiratory Rate 16 07/13/2015 9:42 AM EDT Oxygen Saturation - - Inhaled Oxygen Concentration - - Weight 99.3 kg (219 lb) 07/13/2015 9:42 AM EDT Height 185.4 cm (6' 1 ) 07/13/2015 9:42 AM EDT Body Mass Index 28.89 07/13/2015 9:42 AM EDT Plan of Treatment Not on file Insurance [employer] [place] MEDICARE - [place] Care Teams Brick Veneer Maker Relationship Specialty Start Date End Date Nuha Galvin PA-C [address] [place] [address] PCP - General 03/21/18
--- OUTSIDE RECORDS SUMMARY | 2024-05-27 13:53 | XMS_ITS | Clinical Summary ---
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 28 tablet 5 11/22/19 24 Active docusate sodium (Colace) 100 MG capsule TAKE 1 CAPSULE BY MOUTH TWICE A DAY (BUBBLE-MATHEUS) 56 capsule 5 02/06/20 24 Active dronedarone (Multaq) 400 MG tablet Take 1 tablet by mouth with breakfast and with evening meal. Active metoprolol tartrate (Lopressor) 25 MG tabletIndicatio ns:Essential hypertension Take 0.5 tablets (12.5 mg) by mouth 2 times daily. 30 tablet 11 04/14/20 24 025 Active amphetamine-dex troamphetamine (Adderall) 7.5 MG tablet Take 1 tablet (7.5 mg) by mouth Once per day. 28 tablet 04/26/20 24 Active Eliquis 5 MG tabletIndicatio ns:Longstanding persistent atrial fibrillation (CMS/HCC) TAKE ONE TABLET BY MOUTH EVERY 12 HOURS 60 tablet 5 04/30/20 24 Active cilostazol (Pletal) 50 MG tabletIndicatio ns:PVD (peripheral vascular disease) (CMS/HCC) TAKE ONE TABLET BY MOUTH TWICE A DAY 60 tablet 5 04/30/20 24 Active tamsulosin (Flomax) 0.4 MG 24 hr capsule Take 1 capsule (0.4 mg) by mouth Once per day. 30 capsule 2 05/07/19 25 Active aspirin (Aspirin Low Dose) 81 MG EC tabletIndicatio ns:Primary hypertension Take 1 tablet (81 mg) by mouth Once per day. 30 tablet 05/23/19 25 Active atorvastatin (Lipitor) 80 MG tabletIndicatio ns:Hypercholest erolemia Take 1 tablet (80 mg) by mouth Once per day. 28 tablet 05/23/19 25 Active Aspirin Low Dose 81 MG EC tabletIndicatio ns:Primary hypertension TAKE ONE TABLET BY MOUTH EVERY DAY 30 tablet 04/28/20 22 025 Discontinued(Re order (will not trigger notification to Pharmacy)) atorvastatin (Lipitor) 80 MG tabletIndicatio ns:Hypercholest erolemia TAKE ONE TABLET BY MOUTH EVERY DAY 28 tablet 06/14/19 24 025 Discontinued(Re order (will not trigger notification to Pharmacy)) cilostazol (Pletal) 50 MG tabletIndicatio ns:PVD (peripheral vascular disease) (CMS/HCC) Take 1 tablet (50 mg) by mouth 2 times daily. 60 tablet 5 11/01/19 24 024 Discontinued apixaban (Eliquis) 5 MG tabletIndicatio ns:Longstanding persistent atrial fibrillation (CMS/HCC) Take 1 tablet (5 mg) by mouth every 12 (twelve) hours. 60 tablet 5 11/01/19 24 024 Discontinued oxyCODONE (Roxicodone) 5 MG immediate release tabletIndicatio ns:Closed nondisplaced fracture of acromial end of right clavicle, initial encounter Take 1 tablet (5 mg) by mouth every 6 (six) hours if needed for severe pain for up to 5 days. 15 tablet 04/18/20 24 024 Discontinued(Re order (will not trigger notification to Pharmacy)) oxyCODONE (Roxicodone) 5 MG immediate release tabletIndicatio ns:Closed nondisplaced fracture of acromial end of right clavicle, initial encounter Take 1 tablet (5 mg) by mouth every 6 (six) hours if needed for severe pain for up to 5 days. 15 tablet 04/29/20 24 025 Active Problems Problem Noted Date Diagnosed Date Acute blood loss anemia 01/22/2024 Anticoagulant long-term use 01/22/2024 Axonal sensorimotor neuropathy 01/22/2024 Class 1 obesity 01/22/2024 Complex renal cyst 01/22/2024 Degeneration of intervertebral disc of cervical region 01/22/2024 Cellulitis 01/22/2024 Assessment & Plan (04/03/2024 3:48 PM EST): Sixto early cellulitis. Keep leg elevated. Low NA diet. Area marked with marker, advise seek medical attention immediately if symptoms worsen. - Prescribed cephalexin (Keflex) 500 MG capsule 04/03/24 - ER precautions discussed. - Seek medical attention for worsening symptoms. -follow up pcp next available for cellulitis Diverticulitis 01/22/2024 Encounter for screening colonoscopy 01/22/2024 Preoperative cardiovascular examination 01/22/20 Enlarged prostate 01/22/2024 HCAP (healthcare-associated pneumonia) Heme positive stool 01/22/2024 History of colostomy reversal 01/22/2024 History of diverticulitis 01/22/2024 History of renal cell carcinoma 01/22/2024 Hypersomnia 01/22/2024 Lower urinary tract symptoms 01/22/2024 Neuropathy 01/22/2024 Numbness 01/22/2024 Paroxysmal atrial flutter 01/22/2024 Poor historian 01/22/2024 Pseudoaneurysm of artery of upper extremity 12/31 S/P cardiac cath 01/22/2024 Sleep difficulties 01/22/2024 Snoring 01/22/2024 STEMI (ST elevation myocardial infarction) 01/21 Tobacco use disorder 01/22/2024 Ascending aortic aneurysm 01/22/2024 CKD (chronic kidney disease) stage 3, GFR 30-59 ml/min 01/22/2024 Coronary artery calcification seen on CT scan Coronary artery disease 01/22/2024 Atherosclerotic cardiovascular disease Pseudoaneurysm 01/22/2024 Renal malignant neoplasm 01/22/2024 Essential hypertension 05/28/[address] segment elevation myocardial infarction 03/03/2021 Aortopathy associated with bicuspid aortic valve 03/03/2021 Coronary arteriosclerosis 03/03/2021 Low back pain of over 3 months duration 03/03/20 21 Renal cell carcinoma 03/03/2021 Hypertension 03/03/2021 Cardiomyopathy 04/13/2020 History of partial nephrectomy 04/13/2020 History of 2019 novel coronavirus disease (COVID -19) 04/13/2020 Chronic kidney disease 04/13/2020 Hyperlipidemia 04/13/2020 PAD (peripheral artery disease) 02/25/2020 COVID-19 2020 Encounter for surgical after care following surgery on the circulatory system 2020 Normocytic anemia 2020 Recurrent major depressive disorder 2020 Breakdown (mechanical) of ot her vascular grafts, initial encounter 2020 Chronic kidney disease, stage 2 (mild) 0 Generalized anxiety disorder 2020 Vascular graft infection 01/29/2020 Memory disturbance 10/06/2019 History of non-ST elevation myocardial infarctio n (NSTEMI) 09/24/2019 Atrial fibrillation 09/24/2019 Chronic kidney disease (CKD), stage III (moderat e) 05/19/2019 Closed fracture of sacrum with delayed healing 0 08/27/2018 DDD (degenerative disc disease), lumbar 08/28/19 19 Centrilobular emphysema 08/01/2017 Chronic obstructive pulmonary disease 08/01/2017 Atelectasis 08/01/2017 Scarring of lung 08/01/2017 Anxiety 07/06/2017 Lung nodule 10/19/2016 Overview (01/22/2024): Get with nonspecific findings on CT scan 06/2016. Repeat CT scan should be considered Sleep disorder 02/02/2015 Overview (01/22/2024): Saw [facility] and sleep on 01/15/2015: Dr. Johnson Likely DILLAN sleep study ordered. Given that he has RLS, He may have periodic limb movement disorder which can be checked for in the study. Check ferritin. Will await sleep study. Depression with anxiety 04/01/2014 Overview (06/16/2022): Dr. Pradhan at [facility]. Is going to establish care at a new facility. Hypercholesteremia 04/01/2014 Alcohol abuse, episodic drinking behavior 2013 Degenerative joint disease (DJD) of hip 04/01/20 14 Overview (01/22/2024): Xray done in 2008 to confirm degenerative changes. Degenerative lumbar spinal stenosis 04/01/2014 Overview (01/22/2024): MRI done 07/15/2013 Impression: degenerative changes and spondylolistheses. Left L4 nerve root impingement cannot be excluded to neuroforaminal stenosis at L4-L5 Steroid injections given07/25/2013 Peripheral vascular disease 04/01/2014 Overview (01/22/2024): Fem-Fem done by Dr. Hensley in 2006. Sees this doctor once a year at [facility]. Follows up with this facility every 6 months. Pure hypercholesterolemia 07/24/2009 Thoracic aortic aneurysm (TAA) 03/11/2009 Overview (01/22/2024): IMO update Seen by [facility]. 4.[address] [...] Severe SOB and mild hypoxia with exercise. Renal mass 03/05/2007 Overview (01/22/2024): Left partial nephrectomy - Dx Cancer Diverticulitis of colon 03/10/2006 Overview (01/22/2024): Had colostomy for a time Sony done [address] [facility] Impotence of organic origin 07/14/2005 Atherosclerosis of [place] of extremity with intermittent claudication 07/14/2005 Overview (01/22/2024): Stent on right and fem- fem bypass on left IMO update Depressive disorder 07/14/2005 Alcohol abuse, in remission 06/19/2005 Encounters Date Type Department Care Team Description 05/27/2024 Telephone [facility] [address] [place] [address] Sesar Pereyra MD Med Refill 05/23/2024 Telephone [facility] [address] [place] [address] Sesar Pereyra MD Medication Question 05/15/2024 Telephone [facility] [address] [place] [address] Sesar Pereyra MD 05/09/2024 Telephone [facility] [address] [place] [address] Verona Thompson, CLAUDIA 05/07/2024 9:15 AM EST Office Visit [facility] [address] [place] [address] Natasha Jiang MD Kidney stone (Primary Dx) 05/07/2024 Telephone [facility] [address] [place] [address] Natasha Jiang MD Medication Question 05/07/2024 Orders Only [facility] [address] [place] [address] Natasha Jiang MD 05/07/2024 Travel 05/06/2024 Telephone [facility] [address] [place] [address] Sesar Pereyra MD Nurse Triage 04/30/2024 Refill [facility] [address] [place] [address] Sesar Pereyra MD Longstanding persistent atrial fibrillation (CMS/HCC); PVD (peripheral vascular disease) (CMS/HCC) 04/29/2024 Orders Only [facility] [address] [place] [address] Sesar Pereyra MD Closed nondisplaced fracture of acromial end of right clavicle, initial encounter 04/29/2024 Telephone [facility] [address] [place] [address] Sesar Pereyra MD Nurse Triage 04/28/2024 Refill [facility] [address] [place] [address] Sesar Pereyra MD 04/26/2024 Refill [facility] [address] [place] [address] Sesar Pereyra MD Closed nondisplaced fracture of acromial end of right clavicle, initial encounter 04/26/2024 Telephone [facility] [address] [place] [address] Sesar Pereyra MD Med Refill 04/18/2024 Refill [facility] [address] [place] [address] Loyda Jacobson RN Essential hypertension; Closed nondisplaced fracture of acromial end of right clavicle, initial encounter 04/18/2024 Telephone [facility] [address] [place] [address] Sesar Pereyra MD Med Refill 04/11/2024 Refill [facility] [address] [place] [address] Sesar Pereyra MD 04/11/2024 Refill [facility] [address] [place] [address] Natasha Jiang MD Closed nondisplaced fracture of acromial end of right clavicle, initial encounter 04/11/2024 Travel 04/10/2024 Refill [facility] [address] [place] [address] Ssear Pereyra MD Closed nondisplaced fracture of acromial end of right clavicle, initial encounter 04/10/[address] [address] Sesar Pereyra MD Med Refill 04/03/2024 3:00 PM EST Office Visit [facility] [address] [place] [phone] Lauren Vogel MD Cellulitis of left lower extremity (Primary Dx) 04/03/[address] [address] Sesar Pereyra MD Nurse Triage 04/02/[address] [address] Sesar Pereyra MD callback number; Medication Question 04/02/2024 Refill [facility] [address] [place] [address] Sesar Pereyra MD Closed nondisplaced fracture of acromial end of right clavicle, initial encounter 04/02/2024 Telephone [facility] [address] [place] [address] Sesar Pereyra MD Med Refill 04/02/2024 Orders Only [facility] [place] [facility] [address] [place] [phone] Jazmyn Bates MD 04/01/2024 Orders Only [facility] [address] [place] [address] Sesar Pereyra MD Essential hypertension (Primary Dx) 03/27/2024 9:15 AM EST Office Visit [facility] [address] [place] [address] Sesar Pereyra MD Acute kidney injury (CMS/HCC) (Primary Dx); Closed nondisplaced fracture of acromial end of right clavicle, initial encounter; Longstanding persistent atrial fibrillation (CMS/HCC); Dizziness; Bradycardia 03/27/2024 Telephone [facility] [address] [place] [address] Analilia Mart, CLAUDIA Plan of care 03/27/2024 Travel 03/25/2024 Telephone [facility] [address] [place] [address] Sesar Pereyra MD Chart Prep 03/22/2024 Telephone [facility] [address] [place] [address] Sesar Pereyra MD Nurse Triage 03/15/2024 Telephone [facility] [address] [place] [address] Sesar Pereyra MD ER Follow-up 03/15/2024 Travel 03/14/2024 Orders Only GENERIC EXTERNAL DATA DEPARTMENT Provider, Generic External Data 03/13/2024 9:00 AM EST Office Visit [facility] [address] [place] [address] Sesar Pereyra MD Essential hypertension (Primary Dx); Longstanding persistent atrial fibrillation (CMS/HCC) 03/13/2024 Travel 03/12/2024 Orders Only GENERIC EXTERNAL DATA DEPARTMENT Provider, Generic External Data 03/12/2024 Telephone [facility] [address] [place] [address] Sesar Pereyra MD Chart Prep 03/07/2024 Travel from Last 3 Months Immunizations Name Administration Dates Next Due DTaP, Unspecified 08/01/2003 Influenza High-dose Quadriva lent Preservative Free 03/15/2023,03/01/2022,03/22/2021 Influenza, High Dose Seasona l, Preservative Free 01/22/2024,02/18/2020,01/12/2018,01/31 Influenza, IIV3, injectable 03/01/2022,1 05/22/2020,02/18/2020,02/17,01/12/2018,01/31/2017,02/18/2016 ,02/02/2015,04/15/2014,03/07/2011,08/2009,07/09/2006 Influenza, Unspecified 02/18/2020 Influenza, trivalent, adjuvanted 02/18/2016 PPD Test 02/13/2020,02/13/2020 Pfizer Covid-19 Vaccine 12+ 02/07/2021,0 01/24/2021,08/06/2020,07/16 Pneumococcal Conjugate PCV 13 12/18/2019, 018 Pneumococcal Polysaccharide PPSV23 02/19/2015,,08/22/2012 Td (adult), unspecified 08/01/2003 Tdap 07/19/2023,06/24/2011 Zoster, Recombinant 08/18/2022,06/16/2022 Zoster, live 07/11/2014 Family History Medical History Relation Name Comments Bone cancer Brother Heart attack Father Brain cancer Sister Relation Name Status Comments Brother Father Sister Social History Tobacco Use Types Packs/Day Years Used Date Smoking Tobacco: Former Cigarettes Passive Smoke Exposure: Past Smokeless Tobacco: Never Tobacco Cessation:Counseling Given: Not Answered Comments:Quit 35 years ago. Depression Answer Date [...] not to disclose 2021 10:24 AM EDT Last Filed Vital Signs Vital Sign Reading Time Taken Comments Blood Pressure 148/70 05/07/2024 9:18 AM EST Pulse 80 05/07/2024 9:18 AM EST Temperature 36.3 ??C (97.3 ??F) 05/07/2024 9:18 AM ES T Respiratory Rate 20 05/07/2024 9:18 AM EST Oxygen Saturation 96% 04/03/2024 2:31 PM EST Inhaled Oxygen Concentration - - Weight 109 kg (240 lb) 05/07/2024 9:18 AM EST Height 182.9 cm (6') 05/07/2024 9:18 AM EST Body Mass Index 32.55 05/07/2024 9:18 AM EST Plan of Treatment Upcoming Encounters Date Type Department Care Team ([facility] Contact Info) Description 06/13/2024 1:00 PM EST Office Visit [facility] [address] [place] [address] Sesar Pereyra MD [address] [place] [address] Health Maintenance Due Date Last Done Comments Alcohol/Substance Use Screening 1957 Hepatitis A Vaccines (1 of 2 - Risk 2-dose series) 1966 RSV Patients and Patients Aged 60 years or older (1 - 1-dose 75+ series) 2022 Depression Monitoring (PHQ-9) 01/19/2024 07/19/2023, 07/19/2023 SDOH Screening 07/11/2024 07/12/2023 Depression Screening 07/18/2024 07/19/2023, 07/19/19 Tobacco Screening 05/07/2025 05/07/2024 Lipid Panel 03/05/2026 03/05/2021 DTaP/Tdap/Td Vaccines (4 - Td or Tdap) 07/18/2033 07/19/2023, 06/24/2011, 08/01/2003, Additional history exists Pneumococcal Vaccine: 65+ Years Completed 12/18/2019, 01/12/2018, 02/19/2015, Additional history exists Zoster Vaccines Completed 08/18/2022, 06/01, 07/11/2014 Hepatitis C Screening Completed 07/19/2023 Influenza Vaccine Completed 01/22/2024, , 03/01/2022, Additional history exists COVID-19 Vaccine Completed 02/22/2024, , 02/02/2022, Additional history exists HIB Vaccines Aged Out No longer eligi ble based on patient's age to complete this topic HPV Vaccines Aged Out No longer eligi ble based on patient's age to complete this topic Hepatitis B Vaccines Aged Out No long er eligible based on patient's age to complete this topic IPV Vaccines Aged Out No longer eligi ble based on patient's age to complete this topic Meningococcal Vaccine Aged Out No nika alexa eligible based on patient's age to complete this topic RSV under 20 months Aged Out No longe r eligible based on patient's age to complete this topic Rotavirus Vaccines Aged Out No longer eligible based on patient's age to complete this topic Procedures Procedure Name Priority Date/Time Associated Diagnosis Comments XR KUB AND UPRIGHT 2 VIEWS STAT 05/07/2024 10:21 AM EST Kidney stone POCT URINALYSIS DIPSTICK Routine 05/07/2024 9:33 AM EST Kidney stone ECG 12-LEAD Routine 04/01/2024 4:18 PM EST Bradycardia BASIC METABOLIC PANEL Routine 03/27/2024 11:00 AM EST Acute kidney injury (CMS/HCC) ECG 12-LEAD Routine 03/27/2024 9:23 AM EST COMPREHENSIVE METABOLIC PANEL Routine 03/14/2024 8:33 AM EST XR CHEST 1 VIEW Routine 03/12/2024 9:51 PM EST URINALYSIS, COMPLETE, WITH REFLEX TO CULTURE Routine 03/12/2024 9:50 PM EST HEPATITIS C ANTIBODY Routine 07/19/2023 11:42 AM EDT Annual physical exam LIPID PANEL, STANDARD Routine 03/05/2021 9:16 AM EDT from Last 3 Months or Most Recently Relevant to Health Maintenance Results * XR KUB and Upright 2 Views (05/07/2024 10:21 AM EST) Anatomical Region Laterality Modality Radiographic Homa ging 05/07/2024 10:2 1 AM EST Narrative 05/07/2024 10:48 AM EST ? [facility] ?[address] ?[place] [address] ?XRay Report ? Signed ? Patient: Tho,Alex ?MR#: [id number] ?? [id number] ? : 1945 ?Acct:[id number] ? Age/Sex: 79 / M ?ADM Date: 05/07/ ? Loc: HO.XRAY ? Attending Dr: Natasha Jiang MD ? Ordering Physician: Natasha Jiang MD ?? Date of Service: 05/07/24 ?? Procedure(s): XR KUB ?? Accession Number(s): [id number] ? cc: Sesar Pereyra MD; Natasha Jiang MD ? EXAMINATION: ?? XR ABDOMEN KUB ? CLINICAL INDICATION: ?? kidney stone ? COMPARISON: ?? X-ray dated July 02, 2015 ? TECHNIQUE: ?? AP view of the abdomen. ? FINDINGS: ?? Multiple vascular clips in the left hemiabdomen. Multiple coils ?? overlapping the abdomen and pelvis. No intestinal obstruction pattern. ?? Multilevel thoracolumbar spondylosis. Patient's large body ?? habitus/obesity. ? XR/XR KUB ?? IMPRESSION: ?? Nephrolithiasis cannot be excluded based upon this x-ray. ? Electronically signed by: ??Kalin Quezada MD ??05/07/2024 10:45 AM ?? EST RP ? Dictated By: ?Kalin oCx MD ? Signed By: ?<Electronically signed by Kalin Donald MD in OV> ? 05/07/24 1045 ? DD/ 1021 ? TD/TT: 05/07/24 1040 ? Manager Acute: ? Procedure Note Annejudi, Image - 05/07/2024 [place] [address] XRay Report Signed Patient: Alex Nettles#: [id number] : 1945cct:[id number] Age/Sex: 79 / MADM Date: 05/07/24 Loc: [facility] Attending Dr: Natasha Jiang MD Ordering Physician: Natasha Jiang MD Date of Service: 05/07/24 Procedure(s): XR KUB Accession Number(s): [id number] cc: Sesar Pereyra MD; Natasha Jiang MD EXAMINATION: XR ABDOMEN KUB CLINICAL INDICATION: kidney stone COMPARISON: X-ray dated July 02, 2015 TECHNIQUE: AP view of the abdomen. FINDINGS: Multiple vascular clips in the left hemiabdomen. Multiple coils overlapping the abdomen and pelvis. No intestinal obstruction pattern. Multilevel thoracolumbar spondylosis. Patient's large body habitus/obesity. XR/XR KUB IMPRESSION: Nephrolithiasis cannot be excluded based upon this x-ray. Electronically signed by: Kalin Quezada MD 05/07/2024 10:45 AM EST RP Dictated By: Kalin Cox MD Signed By: <Electronically signed by Kalin Donald MDin OV> 05/07/24 1045 DD/ 1021 TD/TT: 05/07/24 1040 Manager Acute: Natasha Jiang MD IMG XR PROCEDURES Edited Result - Final * (ABNORMAL) POCT Urinalysis (05/07/2024 9:33 AM EST) Color, UA Brown Clarity, UA Turbid Glucose, UA Negative Bilirubin, UA Trace Comment:small Ketones, UA Positive Comment:trace Spec Grav, UA 1.025 Blood, UA Negative Negative, None Detected pH, UA 5.5 Protein, UA Many Comment:30 mg/dL Urobilinogen, UA 1.0 Leukocytes, UA Negative Negative, Rare, Trace Nitrite, UA Negative Negative, None Detected Appearance, UA brown QC Media Lot # [id number] Lot# Expiration Date 3, Urine 05/07/2024 9:33 AM EST Natasha Jiang MD POINT OF CARE TEST ENTER/EDIT OR DERABLES Final Result * ECG 12 lead (04/01/2024 4:18 PM EST) Only the most recent of2 resultswithin the time period is included. Narrative Sesar Pereyra MD - 04/01/2024 4:18 PM EST Heart rate 48 bpm. ??Sinus rhythm. ??Morris: 0 degrees. ??No sign of left atrial enlargement or right atrial enlargement. ??No sign of hypertrophy. ?? T wave inversion in aVL and aVF us Sesar Pereyra MD ECG ORDERABLES Final Resul t * (ABNORMAL) Basic Metabolic Panel (03/27/2024 11:00 AM EST) Sodium 141 135 - 145 mmol/L [facility] Potassium 4.8 3.3 - 5.1 mmol/L [facility] Comment:Slight Hemolysis.Int erpret result with caution. Chloride 109(H) 96 - 108 mmol/L [facility] Carbon Dioxide 21(L) 22 - 29 mmol/L [facility] Anion Gap 16 12 - 20 [facility] Urea Nitrogen (BUN) 21(H) 9 - 16 mg/dL [facility] Creatinine, Serum 1.25 0.5 - 1.4 mg/dL [facility] Estimated Glomerular Filt Rate 56 [facility] Comment:Chronic Kidney Disea se: Estimated GFR < 60 mL/min/1.94m2Dgfykc Kidney Disease: Estimated GFR < 15 mL/min/1.73m2 Glucose 83 60 - 115 mg/dL [facility] Calcium 9.4 8.4 - 10.2 mg/dL [facility] Blood Venous blood specimen / Unknown 03/27/2024 11:00 AM EST 03/27/2024 2:18 PM EST us Sesar Pereyra MD LAB BLOOD ORDERABLES Final Result Performing Organization Address City/State/[facility] Co de Phone Number [facility] [address] [place] [phone] * (ABNORMAL) Comprehensive Metabolic Panel (03/14/2024 8:33 AM EST) Sodium 143 135 - 145 mmol/L [facility] Potassium 4.2 3.3 - 5.1 mmol/L [facility] Chloride 108 96 - 108 mmol/L [facility] Carbon Dioxide 27 22 - 29 mmol/L [facility] Anion Gap 12 12 - 20 [facility] Urea Nitrogen (BUN) 16 9 - 16 mg/dL [facility] Creatinine, Serum 1.53(H) 0.5 - 1.4 mg/dL [facility] Creatinine Clr Calc Pharmacy 52.0 [facility] Comment:eGFR (calculated fro m the MDRD study equation) and eCrCl(calculated from the Cockcroft-Gault equation) are based ondifferent parameters and may not yield comparable results.If eCrCl result is absurd, please check patient'sheight/weight. Estimated Glomerular Filt Rate 44 [facility] Comment:Chronic Kidney Disea se: Estimated GFR < 60 mL/min/1.55e3Xrveou Kidney Disease: Estimated GFR < 15 mL/min/1.73m2 Glucose 92 60 - 115 mg/dL [facility] Calcium 9.1 8.4 - 10.2 mg/dL [facility] Bilirubin, Total 0.5 0.0 - 1.0 mg/dL [facility] Aspartate Amino Transferase 23 5 - 37 U/L [facility] Alanine Aminotransferase 19 0 - 40 U/L [facility] Total Protein 6.5 6.5 - 8.0 g/dL [facility] Albumin Level 3.8 3.5 - 5.0 g/dL [facility] Alkaline Phosphatase 102 39 - 117 U/L [facility] 03/14/2024 8:33 AM EST 03/14/2024 8:39 AM EST us Generic External Data Provider LAB BLOOD ORDERAB LES Final Result Performing Organization Address City/State/[facility] Co de Phone Number [facility] [address] [place] [phone] * XR Chest 1 View (03/12/2024 9:51 PM EST) Anatomical Region Laterality Modality Chest Radiographic Homa ging 03/12/2024 9:51 PM EST Narrative 03/12/2024 11:02 PM EST ? [facility] ?[address] ?[place] [address] ?XRay Report ? Signed ? Patient: Prawlucki,Alex ?MR#: [id number] ?? [id number] ? : 1945 ?Acct:[id number] ? Age/Sex: 79 / M ?ADM Date: 03/12/24 ? Loc: HO.ED ? Attending Dr: ? Ordering Physician: Vincent Short MD ?? Date of Service: 03/12/24 ?? Procedure(s): XR chest 1V ?? Accession Number(s): [id number] ? cc: Sesar Pereyra MD; Vincent Short MD ? EXAMINATION: ?? XR CHEST ? CLINICAL INFORMATION: ?? Atrial fibrillation. ? COMPARISON: ?? Chest x-ray June 2021 ? TECHNIQUE: ?? Frontal portable view of the chest was obtained. 2217 hours ? FINDINGS: ?? Lungs are clear. No pulmonary vascular congestion. There is no pleural ?? effusion. The heart size is normal. The cardiac and mediastinal ?? contours are normal. There are multilevel degenerative changes of ?? dorsal spine. ? XR/XR chest 1V ?? IMPRESSION: ?? No acute abnormality of chest. ? Electronically signed by: ??Quentin Truong MD ??03/12/2024 10:59 PM EST RP ? Dictated By: ?Quentin Truong MD ? Signed By: ?<Electronically signed by Quentin Truong MD in OV> ?03/12/249 ? DD/ 50 ? TD/TT: 03/12/242216 ? Manager Acute: BA ? Procedure Note Doncathieter, Image - 03/12/2024 [place] [address] XRay Report Signed Patient: Ronald Nettles#: [id number] : 1945cct:[id number] Age/Sex: 79 / MADM Date: 03/12/24 Loc: HO.ED Attending Dr: Ordering Physician: Vincent Short MD Date of Service: 03/12/24 Procedure(s): XR chest 1V Accession Number(s): [id number] cc: Sesar Pereyra MD; Vincent Short MD EXAMINATION: XR CHEST CLINICAL INFORMATION: Atrial fibrillation. COMPARISON: Chest x-ray June 2021 TECHNIQUE: Frontal portable view of the chest was obtained. 2217 hours FINDINGS: Lungs are clear. No pulmonary vascular congestion. There is no pleural effusion. The heart size is normal. The cardiac and mediastinal contours are normal. There are multilevel degenerative changes of dorsal spine. XR/XR chest 1V IMPRESSION: No acute abnormality of chest. Electronically signed by: Quentin Truong MD 03/12/2024 10:59 PM EST RP Dictated By: Quentin Truong MD Signed By: <Electronically signed by Quentin Truong MD in OV> 03/12/242258 DD/ 50 TD/TT: 03/12/242216 Manager Acute: SHANNAN [facility] External Provider IMG XR PROCEDURES Edited Result - Final * (ABNORMAL) Urinalysis, Complete, with Reflex to Culture (03/12/2024 9:50 PM EST) Color Urine Yellow [facility] Appearance Urine Clear [facility] PH 6.5 5.0 - 9.0 [facility] Glucose Urine UA Negative Negative mg/dL [facility] Urine Blood Negative Negative [facility] Specific [place] - Urine <=1.005 1.005 - 1.025 [facility] Urine Protein 100 (2+)(A) Neg-Trace mg/dL [facility] Urine Ketones Negative Negative mg/dL [facility] Nitrite Urine Negative Negative [facility] Leukocyte Esterase Urine Negative Negative [facility] RBC Urine 0-2 0 - 2 /HPF [facility] Urine WBC 0-5 0 - 5 /HPF [facility] Urine Squamous Epithelial Cell 0-2 0 - 2 /HPF [facility] Urine Bacteria None Seen None Seen [facility] Hyaline Casts, Urine 0-2 0 - 2 /LPF [facility] 03/12/2024 9:50 PM EST 03/12/2024 9:54 PM EST Narrative [facility] - 03/12/2024 10:09 PM EST Urine, Clean Catch us Generic External Data Provider LAB URINE ORDERAB LES Final Result Performing Organization Address [facility] Co de Phone Number [facility] [address] [place] [phone] * Hepatitis C Ab (07/19/2023 11:42 AM EDT) Pathologist [facility] Hepatitis C Antibody Nonreactive Nonreactive [facility] Comment:Antibodies to HCV no t detected; does not exclude early acuteHCV infection. Blood Venous blood specimen / Unknown 07/19/2023 11:42 AM EDT 07/19/2023 2:25 PM EDT us Sesar Pereyra MD LAB BLOOD ORDERABLES Final Result Performing Organization Address [facility] de Phone Number [facility] [address] [place] [phone] * (ABNORMAL) LIPID PANEL, STANDARD (03/05/2021 9:16 AM EDT) [facility] Chol/HDLC Ratio 4.1 <5.0 (calc) [facility] Cholesterol, Total 138 <200 mg/dL [facility] HDL Cholesterol 34(L) > OR = 40 mg/dL [facility] LDL Cholesterol 72 mg/dL (calc) [facility] Comment: Reference range: <100 ?? Desirable range <100 mg/dL for primary prevention; ?? <70 mg/dL for patients with CHD or diabetic patients ?? with > or = 2 CHD risk factors. ?? LDL-C is now calculated using the Charisma ?? calculation, which is a validated novel method providing ?? better accuracy than the Friedewald equation in the ?? estimation of LDL-C. ?? Ulisses MCDANIEL et al. MANDEEP. 2013;310(19): 5721-0584 ?? (http://education.Xerox/faq/RFM179) Non-HDL Cholesterol 104 <130 mg/dL (calc) [facility] Comment: For patients with diabetes plus 1 major ASCVD risk ?? factor, treating to a non-HDL-C goal of <100 mg/dL ?? (LDL-C of <70 mg/dL) is considered a therapeutic ?? option. Triglycerides 232(H) <150 mg/dL [facility] Comment: ?? If a non-fasting specimen was collected, consider repeat triglyceride testing on a fasting specimen if clinically indicated. ?? Estela et al. J. of Clin. Lipidol. 2015;9:129-169. ?? 03/05/2021 9:16 AM EDT us Sesar Pereyra MD LAB BLOOD ORDERABLES Final Result [facility] [address] from Last 3 Months or Most Recently Relevant to Health Maintenance Insurance [employer] MEDICARE REPLACEMENT [facility] FULL Care Teams Street Cleaning Equipment Operator Relationship Specialty Start Date End Date Sesra Pereyra MD [address] [place] [phone] PCP - General Internal Medicine 03/01/21 [facility] 03/22/24
--- OUTSIDE RECORDS SUMMARY | 2024-05-27 13:53 | XMS_ITS | Encounter Summary ---
Author Organization [employer] Address [address] [facility] [address] [place] [address] Care Team Providers Care Clay Dry Press Mixer Operator Name Role Phone Sesar Pereyra MD Primary Care Provider [phone] Reason for Visit * Reason Comments Flank Pain ?ranal calculi Encounter Details Date Type Department Care Team ([facility] st Contact Info) Description 05/07/2024 9:15 AM EST Office Visit [facility] MED & PEDS [address] [place] [address] Natasha Jiang MD [address] [place] [address] Kidney stone (Primary Dx) Social History Tobacco Use Types [...] AM EDT documented as of this encounter Last Filed Vital Signs Vital Sign Reading Time Taken Comments Blood Pressure 148/70 05/07/2024 9:18 AM EST Pulse 80 05/07/2024 9:18 AM EST Temperature 36.3 ??C (97.3 ??F) 05/07/2024 9:18 AM ES T Respiratory Rate 20 05/07/2024 9:18 AM EST Oxygen Saturation - - Inhaled Oxygen Concentration - - Weight 109 kg (240 lb) 05/07/2024 9:18 AM EST Height 182.9 cm (6') 05/07/2024 9:18 AM EST Body Mass Index 32.55 05/07/2024 9:18 AM EST documented in this encounter Progress Notes * Natasha Jiang MD - 05/07/2024 9:15 AM EST Images from the original note were not included. Subjective Patient ID: Alex Nettles is a 79 y.o. male who presents for Flank Pain (?ranal calculi). Flank Pain This is a recurrent problem. The current episode started yesterday. The problem occurs intermittently. The problem has been gradually worsening since onset. The pain is present in the lumbar spine. The pain does not radiate. The pain is at a severity of 6/10. The pain is severe. The pain is The same all the time. Risk factors include history of cancer (kidney stones). Review of Systems Constitutional: Negative. Respiratory: Negative. Cardiovascular: Negative. Gastrointestinal: Negative. Genitourinary: Positive for flank pain. Objective Physical Exam Constitutional: Appearance: Normal appearance. Cardiovascular: Rate and Rhythm: Normal rate and regular rhythm. Pulmonary: Effort: Pulmonary effort is normal. Breath sounds: Normal breath sounds. Musculoskeletal: Arms: Neurological: General: No focal deficit present. Mental Status: He is alert. Psychiatric: Mood and Affect: Mood normal. Behavior: Behavior normal. Assessment/Plan Diagnoses and all orders for this visit: Kidney stone Comments: KUB ordered Will start on Fosamax if positive for Kideny stone Advised to increase hydration Orders: - XR KUB and Upright 2 Views; Future documented in this encounter Plan of Treatment Upcoming Encounters Date Type Department Care Team ([facility] st Contact Info) Description 06/13/2024 1:00 PM EST Office Visit [facility] MED & PEDS [address] [place], [place] [phone] Sesar Pereyra MD [address] [place], [place] [phone] documented as of this encounter Procedures Procedure Name Priority Date/Time Associated Diagnosis Comments XR KUB AND UPRIGHT 2 VIEWS STAT 05/07/2024 10:21 AM EST Kidney stone POCT URINALYSIS DIPSTICK Routine 05/07/2024 9:33 AM EST Kidney stone documented in this encounter Results * XR KUB and Upright 2 Views (05/07/2024 10:21 AM EST) Anatomical Region Laterality Modality Radiographic Homa ging 05/07/2024 10:2 1 AM EST Narrative 05/07/2024 10:48 AM EST ? [facility] ?[address] ?[place] [address] ?XRay Report ? Signed ? Patient: Tho,Alex ?MR#: [id number] ?? [id number] ? : 1945 ?Acct:[id number] ? Age/Sex: 79 / M ?ADM Date: //25 ? Loc: HO.XRAY ? Attending Dr: Natasha Jiang MD ? Ordering Physician: Natasha Jiang MD ?? Date of Service: 05/07/24 ?? Procedure(s): XR KUB ?? Accession Number(s): [id number] ? cc: Sesar Pereyra MD; Natasha Jiang [...] ?? EST RP ? Dictated By: ?Kalin Cox MD ? Signed By: ?<Electronically signed by Kalin Donald MD in OV> ? 05/07/24 1045 ? DD/ 1021 ? TD/TT: 05/07/24 1040 ? Scientific Informatics Project Leader: ? Procedure Note Timmelotaylornallely, Image - 05/07/2024 [place] [address] XRay Report Signed Patient: Ronald Nettles#: [id number] : 1945cct:[id number] Age/Sex: 79 / MADM Date: 05/07/24 Loc: HO.RICKIAY Attending Dr: Natasha Jiang MD Ordering Physician: Natasha Jiang MD Date of Service: 05/07/24 Procedure(s): XR KUB Accession Number(s): [id number] cc: Sesar Pereyra MD; Natasha Jiang MD [...] 05/07/24 1045 DD/ 1021 TD/TT: 05/07/24 1040 Scientific Informatics Project Leader: Natasha Jiang MD IMG XR PROCEDURES Edited [...] Media Lot # [id number] Lot# Expiration Date 3312, Urine 05/07/2024 9:33 AM EST Natasha Jiang MD POINT OF CARE TEST ENTER/EDIT OR DERABLES Final Result documented in this encounter Visit Diagnoses Diagnosis Kidney stone- Primary Calculus of kidney documented in this encounter Additional Health Concerns Assessment Noted Time PHQ-9 Depression Total Score: 16 024 10:59 AM EDT documented as of this encounter Care Teams Clay Dry Press Mixer Operator Relationship Specialty Start Date End Date Sesar Pereyra MD [address] [place] [address] PCP - General Internal Medicine 03/01/21 [facility] 03/22/24 documented as of this encounter
--- OUTSIDE RECORDS SUMMARY | 2024-05-27 13:53 | XMS_ITS | Encounter Summary ---
Author Organization [employer] Address [address] [facility] [address] [place] [address] Care Team Providers Care Delinquency Counselor Name Role Phone Sesar Pereyra MD Primary Care Provider [phone] Reason for Visit * Reason Onset Date Comments Results 06/06/2023 Encounter Details Date Type Department Care Team ([facility] st Contact Info) Description 06/06/2023 Telephone [facility] [address] [place] [address] Sesar Pereyra MD [address] [place] [address] Results Social History Tobacco Use Types Packs/Day Years [...] encounter Miscellaneous Notes * Telephone Encounter - Jacquelyn Abel - 06/06/2023 8:45 AM EST TC from pt requesting call back regarding Results. Type of results: CT SCAN Date when done: 06/01/23-06/02/23 pt unsure [place] [facility] [place] in this encounter Plan of Treatment Upcoming Encounters Date Type Department Care Team (Late st Contact Info) Description 06/13/2024 1:00 PM EST Office Visit [facility] MED & PEDS [address] [place] [address] Sesar Pereyra MD [address] [place] [address] documented as of this encounter Visit Diagnoses Not on filedocumented in this encounter Care Teams Delinquency Counselor Relationship Specialty Start Date End Date Sesar Pereyra MD [address] [place] [address] PCP - General Internal Medicine 03/01/21 [facility] 03/22/24 documented as of this encounter
--- OUTSIDE RECORDS SUMMARY | 2024-05-27 13:53 | XMS_ITS | Encounter Summary ---
Author Organization [employer] [facility] [employer] Address [address] [facility] [address] [place] [address] Care Team Providers Care President [employer] Name Role Phone Sesar Pereyra MD Primary Care Provider [phone] Encounter Details Date Type Department Care Team (Latest Contact Info) Description 05/07/2024 Travel Social History Tobacco Use Types Packs/Day Years [...] Description 06/13/2024 1:00 PM EST Office Visit [facility] & [facility]EDS [address] [place] [address] Sesar Pereyra MD [address] [place] [address] documented as of this encounter Visit Diagnoses Not on filedocumented in this encounter Additional Health Concerns Assessment Noted Time PHQ-9 Depression Total Score: 16 024 10:59 AM EDT documented as of this encounter Care Teams President [employer] Relationship Specialty Start Date End Date Sesar Pereyra MD [address] [place] [phone] PCP - General Internal Medicine [facility] documented as of this encounter
--- OUTSIDE RECORDS SUMMARY | 2024-05-27 13:53 | XMS_ITS | Clinical Summary ---
Author Organization Unknown Care Team Providers Care Arts Manager Name Role Phone MARCO RAMIREZ, POOJA Unavailable Unavailabl e JIMENEZ PT, COURTNEY Unavailable Unavailable SPAFFORD OT, DAGO Unavailable Unavailable CONDINO COATING MANAGER/CALZADA, ANGUS Unavailable Unav ailable FECTEAU SHIP YARD ELECTRICAL PERSON, JANETT Unavailable Unavailable LESLYE RN, DAGOBERTO Unavailable Unavailab abraham CARRION DIET ATTENDANT, ANTONIO Unavailable Unavailable JOSE RAFAEL SKAGGSN, YORDAN Unavailable Unavail able Payers Payer Name Policy Type Policy Number Effective Date Expira tion Date [facility] [id number] Problems Condition Name Condition Details Condition Category [...] 2023-05 00:00: 00 ATHSCL HEART DISEASE OF [place] CORONARY ARTERY W/O ANG PCTRS Active 05-01 [...] HISTORY OF COVID-19 Active 2023-05 00:00: 00 PRISON (CURRENT) USE OF ANTICOAGULAN TS Active 2023-05 [...] immediate release tablet 2023-05 00:00: 00 Yes [id number] PAIN 15 mg EVERY 6 HOURS NEEDED 15 mg EVERY 6 HOURS NEEDED (route: oral) Med Classific ation: Analgesic , Anti-infl ammatory or Antipyret ic clonazepam 0.5 mg tablet 2023-05 00:00: 00 Yes [id number] ANXIETY 0.5 mg 2 TIMES DAILY 0.5 mg 2 TIMES DAILY (route: oral) Med Classific ation: Central Nervous System Agents lisinopril 40 mg tablet 2023-05 00:00: 00 03-21 23:59 :00 No [id number] CAD 40 mg DAILY 40 mg DAILY (route: oral) Med Classific ation: Cardiovas cular Therapy Agents atorvastati n 80 mg tablet 2023-05 00:00: 00 Yes [id number] HYPERTENSIO N 80 mg DAILY 80 mg DAILY (route: oral) Med Classific ation: Cardiovas cular Therapy Agents cilostazol 50 mg tablet 2023-05 00:00: 00 Yes [id number] HYPERTENSIO N 50 mg 2 TIMES DAILY 50 mg 2 TIMES DAILY (route: oral) Med Classific ation: Hematolog ical Agents clopidogrel 75 mg tablet 2023-05 00:00: 00 03-21 23:59 :00 No [id number] CORONARY ARTERY DISEASE 75 mg DAILY 75 mg DAILY (route: oral) Med Classific ation: Hematolog ical Agents Eliquis 5 mg tablet 2023-05 00:00: 00 Yes [id number] ANTI ARRHYTHMIC 5 mg 2 TIMES DAILY 5 mg 2 TIMES DAILY (route: oral) Med Classific ation: Hematolog ical Agents furosemide 40 mg tablet 2023-05 00:00: 00 03-21 23:59 :00 No [id number] BPH 40 mg DAILY 40 mg DAILY (route: oral) Alternate Route: INTRA-MUS CULAR. Med Classific ation: Cardiovas cular Therapy Agents metoprolol tartrate 50 mg tablet 2023-05 00:00: 00 03-22 23:59 :00 No [id number] CAD 50 mg DAILY 50 mg DAILY (route: oral) Med Classific ation: Cardiovas cular Therapy Agents quetiapine 25 mg tablet 2023-05 00:00: 00 Yes [id number] MOOD STABILIZER 25 mg 2 TIMES DAILY 25 mg 2 TIMES DAILY (route: oral) Med Classific ation: Central Nervous System Agents sertraline 50 mg tablet 2023-05 00:00: 00 Yes [id number] MOOD STABILIZER 50 mg DAILY 50 mg DAILY (route: oral) Med Classific ation: Central Nervous System Agents tamsulosin 0.4 mg capsule 2023-05 00:00: 00 Yes [id number] BPH 0.4 mg DAILY 0.4 mg DAILY (route: oral) Med Classific ation: Genitouri nary Therapy docusate sodium 100 mg tablet 2023-05 00:00: 00 Yes [id number] CONSTIPATIO N 100 mg DAILY 100 mg DAILY (route: oral) Med Classific ation: Gastroint estinal Therapy Agents gabapentin 100 mg capsule 2023-05 00:00: 00 Yes [id number] PAIN 1-3 capsule BEDTIME 1-3 capsule BEDTIME (route: oral) Med Classific ation: Central Nervous System Agents metoprolol tartrate 25 mg tablet 2023-05 00:00: 00 03-27 16:09 :43.1 53 No [id number] HYPERTENSIO N 25 mg 2 TIMES DAILY 25 mg 2 TIMES DAILY (route: oral) Med Classific ation: Cardiovas cular Therapy Agents Multaq 400 mg tablet 2023-05 00:00: 00 Yes [id number] ANTIARRHYTH MICHAEL 400 mg 2 TIMES DAILY 400 mg 2 TIMES DAILY (route: oral) Med Classific ation: Cardiovas cular Therapy Agents furosemide 40 mg tablet 2023-05 00:00: 00 Yes [id number] edema 1 tablet DAILY 1 tablet DAILY (route: oral) Med Classific ation: Cardiovas cular Therapy Agents dextroamphe tamine-amph etamine 7.5 mg tablet 2023-05 00:00: 00 Yes [id number] attention 1 tablet DAILY 1 tablet DAILY (route: oral) Med Classific ation: Central Nervous System Agents metoprolol tartrate 25 mg tablet 2023-05 00:00: 00 Yes [id number] heart rate 0.5 tablet 2 TIMES DAILY 0.5 tablet 2 TIMES DAILY (route: oral) Med Classific ation: Cardiovas cular Therapy Agents cephalexin 500 mg capsule 2023-05 00:00: 00 04-10 23:59 :00 No [id number] CELLULITIS LLL 500 mg 4 TIMES DAILY 500 mg 4 TIMES DAILY (route: oral) Med Classific ation: Anti-Infe ctive Agents hydralazine 25 mg tablet 2023-05 00:00: 00 Yes [id number] HTN 25 mg 2 TIMES DAILY 25 [...] CONSULTING PHYSICIANS. RN TO OBSERVE AND ASSESS, BEHAVIORAL MEDICAL DIRECTOR/RESIDENCE LEASING AGENT TO OBSERVE FOR RISK FOR FALLS AND INSTRUCT IN FALL PREVENTION, HOME SAFETY, MEDICATION MANAGEMENT, INFECTION PREVENTION, AND NUTRITION MANAGEMENT. RN/BEHAVIORAL MEDICAL DIRECTOR/RESIDENCE LEASING AGENT NURSE MAY PERFORM O2 SATURATION LEVEL ON ADMISSION AND PRN FOR RN TO ASSESS/BEHAVIORAL MEDICAL DIRECTOR TO OBSERVE PATIENT, WITH NOTIFICATION TO THE PHYSICIAN IF SATURATION IS 90% IN THE ABSENCE OF MORE SPECIFIC PARAMETERS FROM THE PHYSICIAN. AGENCY MAY PERFORM A RESUMPTION OF CARE VISIT FOLLOWING ANY HOSPITAL ADMISSION. RN/BEHAVIORAL MEDICAL DIRECTOR/RESIDENCE LEASING AGENT TO MONITOR CO-MORBID CONDITIONS LISTED ON THE PLAN OF CARE AND ANY NEW CONDITIONS THAT PRESENT THEMSELVES DURING THIS EPISODE TO IDENTIFY CHANGES AND INTERVENE TO MINIMIZE COMPLICATIONS. [code = RN TO OBSERVE, ASSESS, EVALUATE, AND DEVELOP AN INDIVIDUALIZED PLAN OF CARE. AGENCY MAY ACCEPT ORDERS FROM CONSULTING PHYSICIANS. RN TO OBSERVE AND ASSESS, BEHAVIORAL MEDICAL DIRECTOR/RESIDENCE LEASING AGENT TO OBSERVE FOR RISK FOR FALLS AND INSTRUCT IN FALL PREVENTION, HOME SAFETY, MEDICATION MANAGEMENT, INFECTION PREVENTION, AND NUTRITION MANAGEMENT. RN/BEHAVIORAL MEDICAL DIRECTOR/RESIDENCE LEASING AGENT NURSE MAY PERFORM O2 SATURATION LEVEL ON ADMISSION AND PRN FOR RN TO ASSESS/BEHAVIORAL MEDICAL DIRECTOR TO OBSERVE PATIENT, WITH NOTIFICATION TO THE PHYSICIAN IF SATURATION IS 90% IN THE ABSENCE OF MORE SPECIFIC PARAMETERS FROM THE PHYSICIAN. AGENCY MAY PERFORM A RESUMPTION OF CARE VISIT FOLLOWING ANY HOSPITAL ADMISSION. RN/BEHAVIORAL MEDICAL DIRECTOR/RESIDENCE LEASING AGENT TO MONITOR CO-MORBID CONDITIONS LISTED ON THE PLAN OF CARE AND ANY NEW CONDITIONS THAT PRESENT THEMSELVES DURING THIS EPISODE TO IDENTIFY CHANGES AND INTERVENE TO MINIMIZE COMPLICATIONS.] Future Scheduled Test MEDICATION MANAGEMENT; RN/BEHAVIORAL MEDICAL DIRECTOR/RESIDENCE LEASING AGENT TO REVIEW MEDICATIONS FOR INTERACTIONS, EFFECTIVENESS OF DRUG THERAPY, AND SIGNS/SYMPTOMS OF ADVERSE REACTIONS. MAY INSTRUCT AND REINFORCE MEDICATION TEACHING RELATED TO THE USE OF MEDICATIONS, DOSAGE, FREQUENCY, PURPOSE, SIDE EFFECTS, AND TO REPORT COMPLICATIONS. HELP SET UP BUBBLE PACKS [code = MEDICATION MANAGEMENT; RN/BEHAVIORAL MEDICAL DIRECTOR/RESIDENCE LEASING AGENT TO REVIEW MEDICATIONS FOR INTERACTIONS, EFFECTIVENESS OF DRUG THERAPY, AND SIGNS/SYMPTOMS OF ADVERSE REACTIONS. MAY INSTRUCT AND REINFORCE MEDICATION TEACHING RELATED TO THE USE OF MEDICATIONS, DOSAGE, FREQUENCY, PURPOSE, SIDE EFFECTS, AND TO REPORT COMPLICATIONS. HELP SET UP BUBBLE PACKS] Future Scheduled Test RISK FOR H OSPITALIZATION; RN TO ASSESS/TEACH, RESIDENCE LEASING AGENT/BEHAVIORAL MEDICAL DIRECTOR TO OBSERVE/TEACH PATIENT/CAREGIVER ON RISK FOR HOSPITALIZATION/EMERGENCY ROOM VISITS, TEACH SIGNS AND SYMPTOMS THAT PUT PATIENT AT RISK, WHEN TO NOTIFY NURSE/PHYSICIAN OF COMPLICATIONS/DECLINE, AND WHEN TO CALL 911. [code = RISK FOR HOSPITALIZATION; RN TO ASSESS/TEACH, RESIDENCE LEASING AGENT/BEHAVIORAL MEDICAL DIRECTOR TO OBSERVE/TEACH PATIENT/CAREGIVER ON RISK FOR HOSPITALIZATION/EMERGENCY ROOM VISITS, TEACH SIGNS AND SYMPTOMS THAT PUT PATIENT AT RISK, WHEN TO NOTIFY NURSE/PHYSICIAN OF COMPLICATIONS/DECLINE, AND WHEN TO CALL 911.] Future Scheduled Test CARDIOVASC ULAR SYSTEM; RN TO ASSESS/TEACH, BEHAVIORAL MEDICAL DIRECTOR/RESIDENCE LEASING AGENT TO OBSERVE/TEACH RELATED TO ALTERED CARDIOVASCULAR STATUS TO MINIMIZE COMPLICATIONS AND REDUCE HOSPITALIZATION. [code = CARDIOVASCULAR SYSTEM; RN TO ASSESS/TEACH, BEHAVIORAL MEDICAL DIRECTOR/RESIDENCE LEASING AGENT TO OBSERVE/TEACH RELATED TO ALTERED CARDIOVASCULAR STATUS TO MINIMIZE COMPLICATIONS AND REDUCE HOSPITALIZATION.] Future Scheduled Test HYPERTENSI ON MANAGEMENT; RN TO ASSESS AND TEACH, BEHAVIORAL MEDICAL DIRECTOR/RESIDENCE LEASING AGENT TO OBSERVE AND TEACH WARNING SIGNS AND SYMPTOMS TO AVOID HOSPITALIZATION. [code = HYPERTENSION MANAGEMENT; RN TO ASSESS AND TEACH, BEHAVIORAL MEDICAL DIRECTOR/RESIDENCE LEASING AGENT TO OBSERVE AND TEACH WARNING SIGNS AND SYMPTOMS TO AVOID HOSPITALIZATION.] Future Scheduled Test ARRHYTHMIA MANAGEMENT; RN TO ASSESS AND TEACH, BEHAVIORAL MEDICAL DIRECTOR/RESIDENCE LEASING AGENT TO OBSERVE AND TEACH WARNING SIGNS AND SYMPTOMS TO AVOID HOSPITALIZATION. [code = ARRHYTHMIA MANAGEMENT; RN TO ASSESS AND TEACH, BEHAVIORAL MEDICAL DIRECTOR/RESIDENCE LEASING AGENT TO OBSERVE AND TEACH WARNING SIGNS AND SYMPTOMS TO AVOID HOSPITALIZATION.] Future Scheduled Test SKIN INTEG RITY RN TO ASSESS AND TEACH, BEHAVIORAL MEDICAL DIRECTOR/RESIDENCE LEASING AGENT TO OBSERVE AND TEACH INTEGUMENTARY STATUS TO IDENTIFY CHANGES AND INTERVENE TO MINIMIZE COMPLICATIONS. PROVIDE SKILLED TEACHING OF GENERAL WOUND AND SKIN CARE AND PREVENTION RELATED TO POTENTIAL FOR ALTERED SKIN INTEGRITY [code = SKIN INTEGRITY RN TO ASSESS AND TEACH, BEHAVIORAL MEDICAL DIRECTOR/RESIDENCE LEASING AGENT TO OBSERVE AND TEACH INTEGUMENTARY STATUS TO IDENTIFY CHANGES AND INTERVENE TO MINIMIZE COMPLICATIONS. PROVIDE SKILLED TEACHING OF GENERAL WOUND AND SKIN CARE AND PREVENTION RELATED TO POTENTIAL FOR ALTERED SKIN INTEGRITY ] Future Scheduled Test PAIN MANAG EMENT; RN TO ASSESS AND TEACH, RESIDENCE LEASING AGENT/BEHAVIORAL MEDICAL DIRECTOR TO OBSERVE AND TEACH AND PROVIDE EDUCATION ON PAIN MANAGEMENT TECHNIQUES. [code = PAIN MANAGEMENT; RN TO ASSESS AND TEACH, RESIDENCE LEASING AGENT/BEHAVIORAL MEDICAL DIRECTOR TO OBSERVE AND TEACH AND PROVIDE EDUCATION ON PAIN MANAGEMENT TECHNIQUES.] Future Scheduled Test FALL REDUC TION MANAGEMENT; RN TO ASSESS AND OBSERVE, BEHAVIORAL MEDICAL DIRECTOR/RESIDENCE LEASING AGENT TO OBSERVE FALL RISK FACTORS AND EDUCATE PATIENT/CAREGIVER ON STRATEGIES TO MINIMIZE THE RISK OF FALLING. [code = FALL REDUCTION MANAGEMENT; RN TO ASSESS AND OBSERVE, BEHAVIORAL MEDICAL DIRECTOR/RESIDENCE LEASING AGENT TO OBSERVE FALL RISK FACTORS AND EDUCATE PATIENT/CAREGIVER ON STRATEGIES TO MINIMIZE THE RISK OF FALLING.] Future Scheduled Test RESPIRATOR Y SYSTEM MANAGEMENT; RN TO ASSESS AND TEACH, BEHAVIORAL MEDICAL DIRECTOR/RESIDENCE LEASING AGENT TO OBSERVE AND TEACH RELATED TO ALTERED RESPIRATORY STATUS TO MINIMIZE COMPLICATIONS AND REDUCE HOSPITALIZATION. [code = RESPIRATORY SYSTEM MANAGEMENT; RN TO ASSESS AND TEACH, BEHAVIORAL MEDICAL DIRECTOR/RESIDENCE LEASING AGENT TO OBSERVE AND TEACH RELATED TO ALTERED [...] End Date/Time Encounter Type Admission Type Attending [facility] Care Department Encounter ID Discharge Date Discharge Status Discharge Condition Discharge Reason Percent Goals Met 2024-03-22 00:00:00 2024-07-19 00:00:00 [facility] D[facility] NEIL [facility] [id number] .00
--- OUTSIDE RECORDS SUMMARY | 2024-05-27 13:53 | XMS_ITS | Encounter Summary ---
Author Organization [employer] Address [address] [facility] 7t [place] [address] Care Team Providers Care Color Control Supervisor Name Role Phone Sesar Pereyra MD Primary Care Provider +1- [phone] Reason for Visit * Reason Onset Date Comments Med Refill 04/18/2024 Encounter Details Date Type Department Care Team ([facility] st Contact Info) Description 04/18/2024 Telephone [facility] MEDICINE [address] [place] [address] Sesar Pereyra MD [address] [place] [address] Med Refill Social History Tobacco Use Types [...] encounter Miscellaneous Notes * Telephone Encounter - Thanh Floyd - 04/18/2024 8:57 AM EST TC from pt requesting medication refill. oxyCODONE (Roxicodone) 5 MG immediate release tablet amphetamine-dextroamphetamine (Adderall) 7.5 MG tablet Medications needing refill : To be sent to: [facility] - [place], [place] - [address] [place] [address] STEET documented in this encounter Plan of Treatment Upcoming Encounters Date Type Department Care Team (Late st Contact Info) Description 06/13/2024 1:00 PM EST Office Visit [facility] MED & PEDS [address] [place] [address] Sesar Pereyra MD [address] [place] [address] documented as of this encounter Visit Diagnoses Not on filedocumented in this encounter Additional Health Concerns Assessment Noted Time PHQ-9 Depression Total Score: 16 024 10:59 AM EDT documented as of this encounter Care Teams Color Control Supervisor Relationship Specialty Start Date End Date Sesar Pereyra MD [address] [place] [address] PCP - General Internal Medicine 11/1/21 [facility] 03/22/24 documented as of this encounter
--- OUTSIDE RECORDS SUMMARY | 2024-05-27 13:53 | XMS_ITS | Encounter Summary ---
Author Organization [email or web address] Address [address] [facility] 7t [place] [address] Care Team Providers Care Marine Fisheries Technician Name Role Phone Sesar Pereyra MD Primary Care Provider +1- [phone] Reason for Visit * Reason Onset Date Comments Lab Orders 05/04/2022 Encounter Details Date Type Department Care Team ([facility] st Contact Info) Description 05/04/2022 Telephone [facility] MEDICINE [address] [place] [address] Sesar Pereyra MD [address] [place] [address] Lab Orders Social History Tobacco Use Types Packs/Day Years Used Date Smoking Tobacco: Never Assessed Depression Answer Date Recorded Patient Health Questionnaire-9 [...] encounter Miscellaneous Notes * Telephone Encounter - Min Lima - 05/04/2022 9:17 AM EST Tc from pt requesting status n lab referral to [facility] Please contact pt at [phone] * Telephone Encounter - Jacquelyn Abel - 05/04/2022 8:11 AM EST Tc from pt requesting a status update on lab orders. Please contact at [phone] documented in this encounter Plan of Treatment Upcoming Encounters Date Type Department Care Team (Late st Contact Info) Description 06/13/2024 1:00 PM EST Office Visit [facility] MED & PEDS [address] [place] [address] Sesar Pereyra MD [address] [place] [address] Scheduled Orders Name Type Priority Associated Diagnoses Orde r Schedule Basic Metabolic Panel Lab Routine Essential hypertension Expected: 05/05/2022 (Approximate), Expires: 05/05/2023 documented as of this encounter Visit Diagnoses Diagnosis Essential hypertension- Primary Unspecified essential hypertension documented in this encounter Care Teams Marine Fisheries Technician Relationship Specialty Start Date End Date Sesar Pereyra MD [address] [place] [address] PCP - General Internal Medicine 03/01/21 [facility] 03/22/24 documented as of this encounter
--- OUTSIDE RECORDS SUMMARY | 2024-05-27 13:54 | XMS_ITS | Encounter Summary ---
Author Organization [employer] Address [address] [facility] [address] [place] [address] Care Team Providers Care Material Lister Name Role Phone Sesar Pereyra MD Primary Care Provider +1- [phone] Reason for Referral * Consultation (Routine) - Closed Specialty Diagnoses / Procedures Referred By Contac t Referred To Contact Geriatric Medicine Diagnoses Memory disturbance Sesar Pereyra MD [address] [place] [address] Phone: tel: fax: [facility] [address] [place] [address] Phone: tel: fax: Referral ID Status Reason Start Date Expiration Date V isits Requested Visits Authorized [id number] Closed Specialty Services Required 01/11/2024 01/10/2025 1 1 Encounter Details Date Type Department Care Team (Late st Contact Info) Description 01/11/2024 Orders Only [facility] MED & PEDS [address] [place], [place] [phone] Sesar Pereyra MD [address] [place], [place] [phone] Memory disturbance (Primary Dx) Social History Tobacco Use Types [...] Description 06/13/2024 1:00 PM EST Office Visit [facility] MED & PEDS [address] [place] [address] Sesar Pereyra MD [address] [place] [address] Scheduled Referrals Name Type Priority Associated Diagnoses Orde r Schedule Referral to Geriatrics Outpatient Referral Routine Memory disturbance Expected: 01/11/2024 (Approximate), Expires: 01/10/2025 documented as of this encounter Visit Diagnoses Diagnosis Memory disturbance- Primary Memory loss documented in this encounter Additional Health Concerns Assessment Noted Time PHQ-9 Depression Total Score: 16 024 10:59 AM EDT documented as of this encounter Care Teams Material Lister Relationship Specialty Start Date End Date Sesar Pereyra MD [address] [place] [address] PCP - General Internal Medicine 03/01/21 [facility] 03/22/24 documented as of this encounter
--- OUTSIDE RECORDS SUMMARY | 2024-05-27 13:54 | XMS_ITS | Encounter Summary ---
Author Organization [employer] Address [address] [facility] 7t [place] [address] Care Team Providers Care Roundhouse Supervisor Name Role Phone Sesar Pereyra MD Primary Care Provider +1- [phone] Reason for Visit * Reason Comments Med Refill Encounter Details Date Type Department Care Team ([facility] st Contact Info) Description 10/30/2023 Refill [facility] MED & PEDS [address] [place], [place] [phone] Sesar Pereyra MD [address] [place] [address] PVD (peripheral vascular disease) (CMS/HCC); Longstanding persistent atrial fibrillation (CMS/HCC) Social History Tobacco Use Types Packs/Day [...] Upcoming Encounters Date Type Department Care Team ([facility] st Contact Info) Description 06/13/2024 1:00 PM EST Office Visit [facility] MED & PEDS [address] [place] [address] Sesar Pereyra MD [address] [place] [address] documented as of this encounter Visit Diagnoses Diagnosis PVD (peripheral vascular disease) (CMS/HCC) Unspecified peripheral vascular disease Longstanding persistent atrial fibrillation (CMS/HCC) documented in this encounter Additional Health Concerns Assessment Noted Time PHQ-9 Depression Total Score: 16 024 10:59 AM EDT documented as of this encounter Care Teams Roundhouse Supervisor Relationship Specialty Start Date End Date Sesar Pereyra MD [address] [place] [address] PCP - General Internal Medicine [facility] documented as of this encounter
--- OUTSIDE RECORDS SUMMARY | 2024-05-27 13:54 | XMS_ITS | Encounter Summary ---
Author Organization [employer] Address [address] [facility] [address] [place] [address] Care Team Providers Care Audiometrist Name Role Phone Sesar Pereyra MD Primary Care Provider +1- [phone] Reason for Visit * Reason Comments Med Refill Encounter Details Date Type Department Care Team ([facility] st Contact Info) Description 08/29/2023 Refill [facility] MEDICINE [address] [place] [address] Sesar Preeyra MD [address] [place] [address] Social History Tobacco Use Types Packs/Day Years [...] Description 06/13/2024 1:00 PM EST Office Visit [facility] MED & PEDS [address] [place] [address] Sesar Pereyra MD [address] [place] [address] documented as of this encounter Visit Diagnoses Not on filedocumented in this encounter Additional Health Concerns Assessment Noted Time PHQ-9 Depression Total Score: 16 024 10:59 AM EDT documented as of this encounter Care Teams Audiometrist Relationship Specialty Start Date End Date Sesar Pereyra MD [address] [place] [address] PCP - General Internal Medicine 03/01/[facility] 03/22/24 documented as of this encounter
--- OUTSIDE RECORDS SUMMARY | 2024-05-27 13:54 | XMS_ITS | Encounter Summary ---
Author Organization [employer] Address [address] [facility] 7t [place] [address] Care Team Providers Care Probation Counselor Name Role Phone Sesar Pereyra MD Primary Care Provider +1- [phone] Encounter Details Date Type Department Care Team ([facility] st Contact Info) Description 11/01/2023 Orders Only [facility] CHC MED & PEDS [address] [place], [place] [phone] Sesar Pereyra MD [address] [place] [address] Social History Tobacco Use Types Packs/Day Years Used Date Smoking Tobacco: Former Cigarettes Smokeless Tobacco: Never Comments:Quit 35 years ago. Depression Answer Date Recorded Patient Health Questionnaire-9 Score 16 07/19/2023 Patient Health Questionnaire-9 Score 16 07/19/2023 Last PHQ-9: Questionnaire Data Not on file 0 07/19/2023 Housing Stability Answer Date Recorded What is your housing situation today? I have yenny arman 07/12/[address] you li [...] Description 06/13/2024 1:00 PM EST Office Visit [facility] MED & PEDS [address] [place] [address] Sesar Pereyra MD [address] [place] [address] documented as of this encounter Visit Diagnoses Not on filedocumented in this encounter Additional Health Concerns Assessment Noted Time PHQ-9 Depression Total Score: 16 024 10:59 AM EDT documented as of this encounter Care Teams Probation Counselor Relationship Specialty Start Date End Date Sesar Pereyra MD [address] [place] [address] PCP - General Internal Medicine [facility] documented as of this encounter
--- OUTSIDE RECORDS SUMMARY | 2024-05-27 13:54 | XMS_ITS | Encounter Summary ---
Author Organization [employer] Address [address] [facility] 7t [place] [address] Care Team Providers Care Property Developer Name Role Phone Sesar Pereyra MD Primary Care Provider +1- [phone] Reason for Visit * Reason Onset Date Comments Nurse Triage 11/20/2023 Encounter Details Date Type Department Care Team ([facility] st Contact Info) Description 11/20/2023 Telephone [facility] MEDICINE [address] [place] [address] Sesar Pereyra MD [address] [place] [address] Nurse Triage Social History Tobacco Use Types [...] encounter Miscellaneous Notes * Telephone Encounter - Wing Marcus RN - 11/23/2023 10:05 AM EDT Tc to pt to follow-up for triage. Unable to reach pt, left message for pt to call back. Checked both [place] and [facility] records and no reports of recent ED visit within the past three days. * Telephone Encounter - Kay York RN - 11/20/2023 4:27 PM EDT Call returned to Alex Nettles to triage below. Reports having Right ankle pain x 3 days. Pt having redness and rash. No injury. No fever. Pt advised of disposition, agrees to seek ER but tomorrow morning as states I will be waiting too long right now . Reviewed with pt risks of not being assessed to rule out infection or DVT. Pt states will go first thing in the morning. Pt advised to seek ER tonight if swelling or pain becomes severe, SOB or chest discomfort. Pt verbalized understanding. Sent to team for ER status check PRN. Protocol Used: Ankle Swelling (Adult) Protocol-Based Disposition: Go to Office or Video Visit Now Positive Triage Question: * Thigh, calf, or ankle swelling and only 1 side * All higher-acuity triage questions were negative Care Advice Discussed: * Elevate the Ankle * Cold Pack for Severe Swelling * Reasons To Call Back - You develop a fever - Ankle becomes red or very painful - You become worse * Telephone Encounter - Jacquelyn Everetta - 11/20/2023 4:22 PM EDT Symptom: Foot or Ankle Swelling Outcome: Schedule an urgent appointment (within 4 hours) or talk to a nurse or provider soon Reason: Getting worse The caller accepted this outcome Please contact at [phone] documented in this encounter Plan of Treatment Upcoming Encounters Date Type Department Care Team (Late st Contact Info) Description 06/13/2024 1:00 PM EST Office Visit [facility] MED & PEDS [address] [place] [address] Sesar Pereyra MD [address] [place] [address] documented as of this encounter Visit Diagnoses Not on filedocumented in this encounter Additional Health Concerns Assessment Noted Time PHQ-9 Depression Total Score: 16 024 10:59 AM EDT documented as of this encounter Care Teams Property Developer Relationship Specialty Start Date End Date Sesar Pereyra MD [address] [place] [address] PCP - General Internal Medicine 03/01/21 [facility] 03/22/24 documented as of this encounter
--- OUTSIDE RECORDS SUMMARY | 2024-05-27 13:54 | XMS_ITS | Encounter Summary ---
Author Organization [employer] Address [address] [facility] 7 [place] [address] Care Team Providers Care Slip Cover Maker Name Role Phone Sesar Pereyra MD Primary Care Provider +1- [phone] Reason for Visit * Reason Comments Med Refill Encounter Details Date Type Department Care Team ([facility] Contact Info) Description 06/10/2022 Refill [facility] MED & PEDS [address] [place] [address] Sesar Pereyra MD [address] [place] [address] Primary insomnia Social History Tobacco Use Types Packs/Day Years Used Date Smoking Tobacco: Never Assessed Sex and Gender Information Value Date Recorded [...] suspected to have Coronavirus/COVID-19? No / Unsure 05/27/2022 3:49 PM EST documented as of this encounter Plan of Treatment Upcoming Encounters Date Type Department Care Team ([facility] Contact Info) Description 06/13/2024 1:00 PM EST Office Visit [facility] MED & PEDS [address] [place], [place] [phone] Sesar Pereyra MD [address] [place] [address] documented as of this encounter Visit Diagnoses Diagnosis Primary insomnia Persistent disorder of initiating or maintaining sleep documented in this encounter Care Teams Slip Cover Maker Relationship Specialty Start Date End Date Sesar Pereyra MD [address] [place] [address] PCP - General Internal Medicine 03/01/21 [facility] 03/22/24 documented as of this encounter
--- OUTSIDE RECORDS SUMMARY | 2024-05-27 13:54 | XMS_ITS | Encounter Summary ---
Author Organization [employer] Address [address] [facility] 7t [place] [address] Care Team Providers Care Street Photographer Name Role Phone Sesar Pereyra MD Primary Care Provider +1- [phone] Reason for Visit * Reason Onset Date Comments Referral 01/02/2024 Encounter Details Date Type Department Care Team ([facility] st Contact Info) Description 01/02/[address] [facility] MEDICINE [address] [place] [address] Sesar Pereyra MD [address] [place] [address] Referral Social History Tobacco Use Types Packs/Day Years [...] encounter Miscellaneous Notes * Telephone Encounter - Essence De Jesus RN - 01/02/2024 11:31 AM EDT Noted. Will send message to PCP. * Telephone Encounter - Meliton Gilmore - 01/02/2024 10:48 AM EDT Tc from [place] the patients [facility] requesting a referral for a gerontologist and would like to be sent to at [facility] [place] documented in this encounter Plan of Treatment Upcoming Encounters Date Type Department Care Team (Late st Contact Info) Description 06/13/2024 1:00 PM EST Office Visit [facility] MED & PEDS [address] [place] [address] Sesar Pereyra MD [address] [place] [address] documented as of this encounter Visit Diagnoses Not on filedocumented in this encounter Additional Health Concerns Assessment Noted Time PHQ-9 Depression Total Score: 16 024 10:59 AM EDT documented as of this encounter Care Teams Street Photographer Relationship Specialty Start Date End Date Sesar Pereyra MD [address] [place] [address] PCP - General Internal Medicine 03/01/[address] [facility] 03/22/24 documented as of this encounter
--- OUTSIDE RECORDS SUMMARY | 2024-05-27 13:54 | XMS_ITS | Encounter Summary ---
Author Organization [employer] Address [address] [facility] 7t [place] [address] Care Team Providers Care Educational Institution President Name Role Phone Sesar Pereyra MD Primary Care Provider +1 [phone] Encounter Details Date Type Department Care Team (Late st Contact Info) Description 05/09/2024 Telephone [facility] MED & PEDS [address] [place], [place] [phone] Verona Thompson RN Social History Tobacco Use Types Packs/Day Years [...] Telephone Encounter - Verona Thompson RN - 05/09/2024 1:57 PM EST Pt called to notify [facility] that he is going to start getting his medications that come in a bubble pack from [facility] ([phone]). TC to [facility] and spoke with pharm staff. They requested an active medication list and prescriptions for all medications that are going to be put in bubble pack. Please fax: [phone] attn: Art TC to [facility] to get scripts transferred to [facility]. [facility] pharm staff stated that Ana LuevanoampUrvashi Engel need to call [facility] directly to get scripts transferred. Notified [facility]. documented in this encounter Plan of Treatment Upcoming Encounters Date Type Department Care Team (Late st Contact Info) Description 06/13/2024 1:00 PM EST Office Visit [facility] MED & PEDS [address] [place] [address] Sesar Pereyra MD [address] [place] [address] documented as of this encounter Visit Diagnoses Not on filedocumented in this encounter Additional Health Concerns Assessment Noted Time PHQ-9 Depression Total Score: 16 024 10:59 AM EDT documented as of this encounter Care Teams Educational Institution President Relationship Specialty Start Date End Date Sesar Pereyra MD [address] [place] [address] PCP - General Internal Medicine 03/01/21 [facility] 03/22/24 documented as of this encounter
--- OUTSIDE RECORDS SUMMARY | 2024-05-27 13:54 | XMS_ITS | Encounter Summary ---
Author Organization [employer] Address [address] [facility] 7[address] [place] [address] Care Team Providers Care Quenching Car Operator Name Role Phone Sesar Pereyra MD Primary Care Provider [phone] [phone] Encounter Details Date Type Department Care Team ([facility] st Contact Info) Description 05/07/2024 Orders Only [facility] MED & PEDS [address] [place], [place] [phone] Natasha Jiang MD [address] [place] [address] Social History Tobacco Use Types Packs/Day Years [...] 1:00 PM EST Office Visit [facility] MED & PEDS [address] [place] [address] Sesar Pereyra MD [address] [place] [address] documented as of this encounter Visit Diagnoses Not on filedocumented in this encounter Additional Health Concerns Assessment Noted Time PHQ-9 Depression Total Score: 16 024 10:59 AM EDT documented as of this encounter Care Teams Quenching Car Operator Relationship Specialty Start Date End Date Sesar Pereyra MD [address] [place] [address] PCP - General Internal Medicine 03/01/21 [facility] 03/22/24 documented as of this encounter
--- OUTSIDE RECORDS SUMMARY | 2024-05-27 13:54 | XMS_ITS ---
Author Organization [facility] on Address Unknown Problems Problem Status Start Date End Date BREAKDOWN (MECHANICAL) OF OT HER VASCULAR GRAFTS, INITIAL ENCOUNTER (Primary) (T82.318A - ICD-10-CM) ACTIVE 2020 ENCOUNTER FOR SURGICAL AFTER CARE FOLLOWING SURGERY ON THE CIRCULATORY SYSTEM (Z48.812 - ICD-10-CM) ACTIVE 2020 PERIPHERAL VASCULAR DISEASE, UNSPECIFIED (I73.9 - ICD-10-CM) ACTIVE 2020 CHRONIC KIDNEY DISEASE, STAGE 2 (MILD) (N18.2 - ICD-10 -CM) ACTIVE 2020 GENERALIZED ANXIETY DISORDER (F41.1 - ICD-10-CM) ACTIV E 2020 MAJOR DEPRESSIVE DISORDER, R ECURRENT, UNSPECIFIED (F33.9 - ICD-10-CM) ACTIVE 2020 ANEMIA, UNSPECIFIED (D64.9 - ICD-10-CM) ACTIVE 1 CHRONIC OBSTRUCTIVE PULMONAR Y DISEASE, UNSPECIFIED (J44.9 - ICD-10-CM) ACTIVE 2020 PAROXYSMAL ATRIAL FIBRILLATION (I48.0 - ICD-10-CM) ACT LAYLA 2020 ESSENTIAL (PRIMARY) HYPERTENSION (I10 - ICD-10-CM) ACT LAYLA 2020 COVID-19 (U07.1 - ICD-10-CM) ACTIVE 2020 Results * EKG W/ INTERPRETATION Performed by: [employer] Component Value Range Date EKG W/ INTERPRETATION EKG W/ INTERPRETAT IONEKG W/ INTERPRETATION Results: 1.nsr2.leftward axis3.possible old asmi. Borderline ECG. Intervals: HR: 61 bpm IN: 192 ms QRS: 82 ms QT: 458 ms RR: 969 ms QTC: 465 ms Axes: QRS: -8 Deg T: 67 Deg Electronically signed by AMBERLY HALL M.D. 02/13/2020 9:53:25 PM EDT.Reason for Study: Z79.899 OTHER RESIDENTIAL (CURRENT) DRUG THERAPYPrincipal Result Police Specialist: AMBERLY HALL ([phone])[employer] Supervisor: DARRION HART (DCONDON)[employer] Supervisor: PO 02/13/2020 09:53 pm EDT Encounters Encounter Performer Performer Role Encounter Diagnoses Location Date Leave - [facility] 2020 07:57 pm EDT - 02/16/2020 06:56 pm EDT Discharge - Discharged to home or self care - [facility] - Private home/apt. with home health services [facility] 02/16/2020 09:45 pm EDT - 02/20/2020 02:34 pm EDT Immunizations Vaccine Date Influenza 02/18/2020 11:11 am EDT TB 2 Step Mantoux Skin Test 02/13/2020 0 6:51 pm EDT Social History
--- OUTSIDE RECORDS SUMMARY | 2024-05-27 13:54 | XMS_ITS | Encounter Summary ---
Author Organization [employer] Address [address] [facility] 7t [place] [address] Care Team Providers Care Fiber Optic Assembly Worker Name Role Phone Sesar Pereyra MD Primary Care Provider +1- [phone] Encounter Details Date Type Department Care Team ([facility] st Contact Info) Description 05/15/2024 Telephone [facility] MED & PEDS [address] [place], [place] [phone] Sesar Pereyra MD [address] [place] [address] Social History Tobacco Use Types Packs/Day Years [...] Telephone Encounter - Verona Thompson RN - 05/15/2024 11:55 AM EST Medication list faxed to [facility]. * Telephone Encounter - Kelsey Holt - 05/15/2024 11:02 AM EST Tc from [facility] requesting patient active med list. If any questions contact [facility] at [phone] documented in this encounter Plan of Treatment Upcoming Encounters Date Type Department Care Team (Late st Contact Info) Description 06/13/2024 1:00 PM EST Office Visit [facility] MED & PEDS [address] [place] [address] Sesar Pereyra MD [address] [place] [address] documented as of this encounter Visit Diagnoses Not on filedocumented in this encounter Additional Health Concerns Assessment Noted Time PHQ-9 Depression Total Score: 16 024 10:59 AM EDT documented as of this encounter Care Teams Fiber Optic Assembly Worker Relationship Specialty Start Date End Date Sesar Pereyra MD [address] [place] [address] PCP - General Internal Medicine 03/01/21 [facility] 03/22/24 documented as of this encounter
--- OUTSIDE RECORDS SUMMARY | 2024-05-27 13:54 | XMS_ITS | Encounter Summary ---
Author Organization [employer] Address [address] [facility] 7t [place] [address] Care Team Providers Care Supervisor Briar Shop Name Role Phone Sesar Pereyra MD Primary Care Provider +1 [phone] Reason for Visit * Reason Onset Date Comments Medication Question 05/07/2024 Encounter Details Date Type Department Care Team ([facility] Contact Info) Description 05/07/2024 Telephone [facility] MED & PEDS [address] [place] [address] Natasha Jiang MD [address] [place] [address] Medication Question Social History Tobacco Use Types [...] Telephone Encounter - Verona Thompson RN - 05/08/2024 4:06 PM EST TC to patient regarding Flomax. Patient just wanted to let us know that he has been taking this medication for awhile because it is in his bubble pack. Advised patient to continue to take medication as prescribed/bubble pack and increase fluid intake. All questions answered, all concerns addressed.Pt will f/u prn. * Telephone Encounter - Miri Young - 05/08/2024 3:34 PM EST Tc from pt stating medication that was script from doctor Flomax 0.4mg daily is a medication he been taking for a while that's what [facility] inform pt as pt is confused and needs advise on medication * Telephone Encounter - Jordan Conley RN - 05/07/2024 3:16 PM EST TC placed, spoke with pt, inform of message below from Dr. Jiang. Pt verbalized understanding and agreed to plan. * Telephone Encounter - Jordan Conley RN - 05/07/2024 3:16 PM EST ----- Message from Natasha Jiang MD sent at 05/07/2024 11:04 AM EST ----- Xray non confirmative Started on Flomax 0.4mg daily. documented in this encounter Plan of Treatment Upcoming Encounters Date Type Department Care Team (Late st Contact Info) Description 06/13/2024 1:00 PM EST Office Visit [facility] MED & PEDS [address] [place] [address] Sesar Pereyra MD [address] [place] [address] documented as of this encounter Visit Diagnoses Not on filedocumented in this encounter Additional Health Concerns Assessment Noted Time PHQ-9 Depression Total Score: 16 07/18/ 024 10:59 AM EDT documented as of this encounter Care Teams Supervisor Briar Shop Relationship Specialty Start Date End Date Sesar Pereyra MD [address] [place] [address] PCP - General Internal Medicine 03/01[facility] 03/[facility] documented as of this encounter
== END 2024-05-27 10:10 | disposition home or self-care (01) ==
PROVIDERS: PCP Internal Medicine; Visit Provider Nurse Practitioner Family
DX: I47.10 Supraventricular tachycardia, unspecified (principal); I11.9 Hypertensive heart disease without heart failure; I25.10 Atherosclerotic heart disease of native coronary artery without angina pectoris; I48.0 Paroxysmal atrial fibrillation; Z98.890 Other specified postprocedural states; I73.9 Peripheral vascular disease, unspecified; I71.20 Thoracic aortic aneurysm, without rupture, unspecified; I49.1 Atrial premature depolarization
CPT/HCPCS: 93010; 99214; G2211

== ENCOUNTER → 2024-05-27 09:28 | Outpatient (BNVA) | payer MEDICARE, SELFPAY | PROVIDERS: PCP Internal Medicine; Visit Provider Nurse Practitioner Family | DX: I73.9 Peripheral vascular disease, unspecified (principal); I25.10 Atherosclerotic heart disease of native coronary artery without angina pectoris; I47.10 Supraventricular tachycardia, unspecified; I15.0 Renovascular hypertension; I48.0 Paroxysmal atrial fibrillation; I71.20 Thoracic aortic aneurysm, without rupture, unspecified; E78.5 Hyperlipidemia, unspecified; Z91.81 History of falling; Z79.01 Long term (current) use of anticoagulants; Z87.891 Personal history of nicotine dependence; Z98.890 Other specified postprocedural states | CPT/HCPCS: 93005; 99212 ==

== ENCOUNTER 2024-05-31 13:15 | Outpatient (AMB) | payer MEDICARE, SELFPAY ==
--- OUTSIDE RECORDS SUMMARY | 2024-05-31 13:31 | XMS_ITS | Encounter Summary ---
Author Organization [facility] Address [address] [place] [address] Care Team Providers Care Ironworker Machine Operator Name Role Phone Yolande Nicholas DO Primary Care Pro vider Unavailable Anuj Priest DO Primary Care Provider [facility], Pcp Primary Care Provider Unavailabl e Reason for Visit * Reason Onset Date Comments Faxed Order 10/05/2019 [facility] Encounter Details Date Type Department Care Team Description 10/05/2019 Telephone Adult Medicine [address] [address] Yolande Nicholas DO Faxed Order ([facility]) Social History Tobacco Use Types Packs/Day Years Used Date Smoking Tobacco: Former Cigarettes 1 35 Q uit: 07/26/2005 Smokeless Tobacco: Never Alcohol Use Standard Drinks/Week Comments Yes 0 (1 standard drink = 0.6 oz pure alcohol) 1 1/2 week ago. has now stopped Sex Assigned at Date Recorded Not on file documented as of this encounter Miscellaneous Notes * Telephone Encounter - Araceli Martinez - 10/05/2019 2:47 PM EDT Please review, sign and fax back orders to [facility]. documented in this encounter Plan of Treatment Not on file documented as of this encounter Visit Diagnoses Not on filedocumented in this encounter Care Teams Ironworker Machine Operator Relationship Specialty Start Date End Date Yolande Nicholas DO PCP - General Internal Medicine 12/03/18 10/08/20 Anuj Priest DO PCP - General Internal Medicine 10/09/20 2 [facility], Pcp PCP - General Internal Medicine 06/17/21 documented as of this encounter
--- OUTSIDE RECORDS SUMMARY | 2024-05-31 13:31 | XMS_ITS | Encounter Summary ---
Author Organization [facility] Address [address] [place] [address] Care Team Providers Care Housekeeper/Custodian/Laundry Worker Name Role Phone Yolande Nicholas DO Primary Care Pro vider Unavailable Anuj Priest DO Primary Care Provider Judy Gardnre, Pcp Primary Care Provider Unavailabl e Encounter Details Date Type Department Care Team Description 10/07/2019 [employer] Inspector Report Medical Records [address] [place] [address] Dhruv Garcia MD Social History Tobacco Use Types Packs/Day Years Used Date Smoking Tobacco: Former Cigarettes 1 35 Q uit: 07/26/2005 Smokeless Tobacco: Never Alcohol Use Standard Drinks/Week Comments Yes 0 (1 standard drink = 0.6 oz pure alcohol) 1 1/2 week ago. has now stopped Sex Assigned at Date Recorded Not on file documented as of this encounter Plan of Treatment Not on file documented as of this encounter Visit Diagnoses Not on filedocumented in this encounter Care Teams Housekeeper/Custodian/Laundry Worker Relationship Specialty Start Date End Date Yolande Nicholas DO PCP - General Internal Medicine 12/03/18 10/08/20 Anuj Priest DO PCP - General Internal Medicine 10/09/20 [facility], Pcp PCP - General Internal Medicine 06/17/21 documented as of this encounter
--- OUTSIDE RECORDS SUMMARY | 2024-05-31 13:31 | XMS_ITS | Encounter Summary ---
Author Organization [facility] Address [address] [place] [address] Care Team Providers Care Senior Mechanical Estimator Name Role Phone Yolande Nicholas DO Primary Care Pro vider Unavailable Anuj Priest DO Primary Care Provider Judy Gardner, Pcp Primary Care Provider Unavailabl e Encounter Details Date Type Department Care Team Description 09/20/2019 Pt. Non Urgent Medic al Question Adult Medicine [address] [address] Yolande Nicholas DO Social History Tobacco Use Types Packs/Day Years [...] on filedocumented in this encounter Care Teams Senior Mechanical Estimator Relationship Specialty Start Date End Date Yolande Nicholas DO PCP - General Internal Medicine 12/03/18 10/08/20 Anuj Priest DO PCP - General Internal Medicine 10/09/20 Molly Gardner, Pcp PCP - General Internal Medicine 06/17/21 documented as of this encounter
--- OUTSIDE RECORDS SUMMARY | 2024-05-31 13:31 | XMS_ITS | Encounter Summary ---
Author Organization [facility] Address [address] [place] [address] Care Team Providers Care Senior It Assistant Name Role Phone Ghassan Burciaga MD Primary Care Provider Unavail able Pierre Arevalo MD Primary Care Provider Judy vailable Gerson Dawson MD Primary Care Provider Unavail able [facility], Pcp Primary Care Provider Unavailabl e Coleman Mccarthy MD Primary Care Provider Unavaila Ayo Demarco MD Primary Care Provider [phone] Annalee Jones MD Primary Care Provider Un available Kim Banegas Yolande DO Primary Care Pro vider Unavailable Anuj Priest DO Primary Care Provider Judy vailable [facility], Pcp Primary Care Provider Unavailabl e Encounter Details Date Type Department Care Team Description 06/25/2011 Pt. Non Urgent Medic al Question Medicine/Pediatrics - [address] [phone] Ghassan Burciaga MD Social History Tobacco Use Types Packs/Day Years Used Date Smoking Tobacco: Former Cigarettes 1 35 Q uit: 07/26/2005 Smokeless Tobacco: Never Alcohol Use Standard Drinks/Week Comments No 0 (1 standard drink = 0.6 oz pur e alcohol) prior heavy stopped 3. Sex Assigned at Date Recorded Not on file documented as of this encounter Plan of Treatment Not on file documented as of this encounter Visit Diagnoses Not on filedocumented in this encounter Care Teams Senior It Assistant Relationship Specialty Start Date End Date Ghassan Burciaga MD PCP - General 07/24/00 05/06/13 Pierre Arevalo MD PCP - General Internal Medicine 05/07/13 4 Gerson Dawson MD PCP - General Internal Medicine 01/30/14 03/20/14 [facility], Pcp PCP - General Internal Medicine 03/21/14 05/06/14 Coleman Mccarthy MD PCP - General Internal Medicine 05/07/14 07/18/16 Ayo Carpio MD [address] [place] [address] PCP - General Internal Medicine 07/19/16 01/05/17 Annalee Jones MD [address] [place] [address] PCP - General Internal Medicine 01/06/17 12/02/18 Yolande Nicholas, [address] [address] PCP - General Internal Medicine 12/03/18 10/08/20 Anuj Priest, [address] [address] PCP - General Internal Medicine 10/09/20 06/16/21 [facility], Pcp PCP - General Internal Medicine 06/17/21 documented as of this encounter
--- OUTSIDE RECORDS SUMMARY | 2024-05-31 13:31 | XMS_ITS | Encounter Summary ---
Author Organization [facility] Address [address] [place] [address] Care Team Providers Care Interactive Media Specialist Name Role Phone Yolande Nicholas DO Primary Care Pro vider Unavailable Anuj Priest DO Primary Care Provider [facility], Pcp Primary Care Provider Unavailformerly [facility] e Encounter Details Date Type Department Care Team Description 09/26/2019 Pt. Non Urgent Medical Question Adult Medicine [address] [address] Alana Stinson MD [address] [place] [phone] Social History Tobacco Use Types Packs/Day Years Used Date Smoking Tobacco: Former Cigarettes 1 35 Q uit: 07/26/2005 Smokeless Tobacco: Never Alcohol Use Standard Drinks/Week Comments Yes 0 (1 standard drink = 0.6 oz pure alcohol) 1 1/2 week ago. has now stopped Sex Assigned at Date Recorded Not on file documented as of this encounter Progress Notes * Yolande Banegas DO - 10/01/2019 3:13 PM EDT Hi, I spoke to him, told him needs to fu / [facility] cards for both. Can consider change in the future when issues are stable. * Tosha Mckeon M.A. - 09/27/2019 8:26 AM EDTFrom: Alex Nettles To: Alana Stinson MD Sent: 09/26/2019 3:04 PM EDT Subject: left leg Dr. Stinson 2016 Dr. Fredrick Hensley did a fem fem on my left leg. I think i should see him because he was my Dr. back then for surgery? documented in this encounter Plan of Treatment Not on file documented as of this encounter Visit Diagnoses Not on filedocumented in this encounter Care Teams Interactive Media Specialist Relationship Specialty Start Date End Date Yolande Nicholas DO PCP - General Internal Medicine 12/03/18 10/08/20 Anuj Priest DO PCP - General Internal Medicine 10/09/20 2 [facility], Pcp PCP - General Internal Medicine 06/17/21 documented as of this encounter
--- OUTSIDE RECORDS SUMMARY | 2024-05-31 13:31 | XMS_ITS | Encounter Summary ---
Author Organization [facility] Address [address] [place] [address] Care Team Providers Care Advertising Clerk Name Role Phone Yolande Nicholas DO Primary Care Pro vider Unavailable Anuj Priest DO Primary Care Provider [facility], Pcp [facility] Encounter Details Date Type Department Care Team Description 09/24/2019 Pt. Non Urgent Medic al Question Adult Medicine [address] [address] Yolande Nicholas DO Social History Tobacco Use [...] encounter Miscellaneous Notes * Telephone Encounter - Mita Metcalf - 09/24/2019 9:18 AM EDTFrom: Alex Alma Tho To: Yolande Banegas DO Sent: 09/24/2019 8:39 AM EDT Subject: .left leg very sore. I went to the ER in [place] to have my leg looked at and they said there was no blook cloth. So i was advised to see a specialist Dr. Hensley did the sugery about12 yrs ago and has to be looked at as soon as possible.can nhan walk on the leg some swollen ness very sore when i try to walk on it. this has been this way since i came from [facility] 2wks or more. Need help documented in this encounter Plan of Treatment Not on file documented as of this encounter Visit Diagnoses Not on filedocumented in this encounter Care Teams Advertising Clerk Relationship Specialty Start Date End Date Yolande Nicholas DO PCP - General Internal Medicine 12/03/18 10/08/20 Anuj Priest DO PCP - General Internal Medicine 10/09/[address] [place] [address], Pcp PCP - General Internal Medicine 06/17/21 documented as of this encounter
--- OUTSIDE RECORDS SUMMARY | 2024-05-31 13:31 | XMS_ITS | Encounter Summary ---
Author Organization [facility] Address [address] [place] [address] Care Team Providers Care Adult Live In Caregiver Name Role Phone Ghassan Burciaga MD Primary Care Provider Unavail able Pierre Arevalo MD Primary Care Provider Judy vailable Gerson Dawson MD Primary Care Provider Unavail able [facility], Pcp Primary Care Provider Unavailabl e Coleman Mccarthy MD Primary Care Provider Unavaila Ayo Demarco MD Primary Care Provider [phone] Annalee Jones MD Primary Care Provider Un available Kim Banegas Yolande DO Primary Care Pro vider Unavailable Anuj Priest DO Primary Care Provider Judy vailable [facility], Pcp Primary Care Provider Unavailabl e Encounter Details Date Type Department Care Team Description 06/25/2011 Pt. Non Urgent Medic al Question Medicine/Pediatrics - [address] [address] Ghassan Burciaga MD Social History Tobacco Use [...] on filedocumented in this encounter Care Teams Adult Live In Caregiver Relationship Specialty Start Date End Date Ghassan Burciaga MD PCP - General 07/24/00 05/06/13 Pierre Arevalo MD PCP - General Internal Medicine 05/07/13 4 Gerson Dawson MD PCP - General Internal Medicine 01/30/14 03/20/14 [facility] Pcp PCP - General Internal Medicine 03/21/14 05/06/14 Coleman Mccarthy MD PCP - General Internal Medicine 05/07/14 07/18/16 Ayo Carpio MD [address] [place] [address] PCP - General Internal Medicine 07/19/16 01/05/17 Annalee Jones MD [address] [place] [address] PCP - General Internal Medicine 01/06/17 12/02/18 Yolande Nicholas, [address] [address] PCP - General Internal Medicine 12/03/18 10/08/20 Anuj Priest, [address] [address] PCP - General Internal Medicine 10/09/20 06/16/21 [facility], Pcp PCP - General Internal Medicine 06/17/21 documented as of this encounter
--- OUTSIDE RECORDS SUMMARY | 2024-05-31 13:31 | XMS_ITS | Encounter Summary ---
Author [facility] Address [address] [place] [address] Care Team Providers Care Partner Marketing Intern Name Role Phone Yolande Nicholas DO Primary Care Pro vider Unavailable Anuj Priest DO Primary Care Provider [facility], Pcp Primary Care Provider Unavailabl e Reason for Visit * Reason Onset Date Comments Faxed Refill 09/10/2019 Encounter Details Date Type Department Care Team Description 09/10/2019 Refill Adult Medicine [address] [address] Yolande Nicholas DO Faxed Refill Social History Tobacco Use Types Packs/Day Years Used Date Smoking Tobacco: Former Cigarettes 1 35 Q uit: 07/26/2005 Smokeless Tobacco: Never Alcohol Use Standard Drinks/Week Comments Yes 0 (1 standard drink = 0.6 oz pure alcohol) 1 1/2 week ago. has now stopped Sex Assigned at Date Recorded Not on file documented as of this encounter Miscellaneous Notes * Telephone Encounter - Ammy Peña M.A. - 09/10/2019 3:45 PM EDT Last ov 09/09/19 Lab Results Component Value Date NA 137 02/08/2019 K 5.1 02/08/2019 CO2 28 02/08/2019 CL 104 02/08/2019 BUN 26 02/08/2019 CREAT 1.22 02/08/2019 GLU 93 02/08/2019 CA 9.5 02/08/2019 GFR 59 02/08/2019 * Telephone Encounter - Yoanna Matajan - 09/10/2019 1:33 PM EDT Patient would like script to be: E-PRESCRIBED/FAXED TO PHARMACY WHEN WAS THE PATIENT'S LAST APPOINTMENT IN ADULT MEDICINE? 09/09/19 WHEN WAS THE LAST TIME THE PATIENT SAW THEIR PCP? 09/06/19 Does patient have an upcoming appointment? No (THE MEDICATION REQUESTED IS ON THE MED LIST ABOVE) All of the medications requested were on the CURRENT MEDS list Did you check the Pharmacy information above?: YES Patient wants: 30 -day supply Is this a mail order prescription request ? NO If the refill is from a FAXED refill request what is the RX # listed on the fax? N/A Patients current insurance carrier is: [facility]: [facility] / Plan: [facility]ICARE FFS [facility] [id number] / Product Type: MEDICARE [id number] documented in this encounter Plan of Treatment Not on file documented as of this encounter Visit Diagnoses Not on filedocumented in this encounter Care Teams Partner Marketing Intern Relationship Specialty Start Date End Date Yolande Nicholas DO PCP - General Internal Medicine 12/03/18 10/08/20 Anuj Priest DO PCP - General Internal Medicine 10/09/20 2 [facility], Pcp PCP - General Internal Medicine 06/17/21 documented as of this encounter
--- OUTSIDE RECORDS SUMMARY | 2024-05-31 13:31 | XMS_ITS | Encounter Summary ---
Author Organization [facility] Address [address] [place] [address] Care Team Providers Care Home Care Scheduler Name Role Phone Yolande Nicholas DO Primary Care Pro vider Unavailable Anuj Priest DO Primary Care Provider [facility], Pcp Primary Care Provider Unavailabl e Reason for Visit * Reason Onset Date Comments anxiety 09/16/2019 Encounter Details Date Type Department Care Team Description 09/16/2019 Pt. Non Urgent Medic al Question Adult Medicine [address] [address] Yolande Nicholas DO Social History Tobacco Use [...] encounter Miscellaneous Notes * Telephone Encounter - Kira Lee M.A. - 09/17/2019 9:33 AM EDTFrom: Alex Nettles To: Yolande Banegas DO Sent: 09/16/2019 7:39 AM EDT Subject: pcp Are you my pcp or is it Dr. Stinson I have getting my scripts from Dr. Stinson. I am trying to get my scripts in order after i came from the with the chovid-19 virus. It seems i cant get my med straight for me to take. Should have a visiting nurs this week. I seems that that is the only that is working with me. You have received the med report [facility] . I need to know which meds i should take? Alex Nettles documented in this encounter Plan of Treatment Not on file documented as of this encounter Visit Diagnoses Not on filedocumented in this encounter Care Teams Home Care Scheduler Relationship Specialty Start Date End Date Yolande Nicholas DO PCP - General Internal Medicine 12/03/18 10/08/20 Anuj Priest DO PCP - General Internal Medicine 10/09/20 2 [facility], Pcp PCP - General Internal Medicine 06/17/21 documented as of this encounter
--- OUTSIDE RECORDS SUMMARY | 2024-05-31 13:31 | XMS_ITS | Encounter Summary ---
Author Organization [facility] Address [address] [place] [address] Care Team Providers Care Oncology Nurse Name Role Phone Yolande Nicholas DO Primary Care Pro vider Unavailable Anuj Priest DO Primary Care Provider [facility], Pcp Primary Care Provider Unavailabl e Reason for Visit * Reason Onset Date Comments Faxed Order 09/20/2019 Encounter Details Date Type Department Care Team Description 09/20/2019 Telephone Adult [address] [address] Yolande Nicholas DO Faxed Order Social History Tobacco Use Types Packs/Day Years Used Date Smoking Tobacco: Former Cigarettes 1 35 Q uit: 07/26/2005 Smokeless Tobacco: Never Alcohol Use Standard Drinks/Week Comments Yes 0 (1 standard drink = 0.6 oz pure alcohol) 1 1/2 week ago. has now stopped Sex Assigned at Date Recorded Not on file documented as of this encounter Miscellaneous Notes * Telephone Encounter - Delfina Bernabe - 09/20/2019 11:29 AM EDT Orders from [facility] to be signed and faxed back to [phone] . documented in this encounter Plan of Treatment Not on file documented as of this encounter Visit Diagnoses Not on filedocumented in this encounter Care Teams Oncology Nurse Relationship Specialty Start Date End Date Yolande Nicholas DO PCP - General Internal Medicine 12/03/18 10/08/20 Anuj Priest DO PCP - General Internal Medicine 10/09/[address] [place] [address], Pcp PCP - General Internal Medicine 06/17/21 documented as of this encounter
--- OUTSIDE RECORDS SUMMARY | 2024-05-31 13:32 | XMS_ITS | Encounter Summary ---
Author Organization [facility] Address [address] [place] [address] Care Team Providers Care Whey Department Operator Name Role Phone Yloande Nicholas DO Primary Care Pro vider Unavailable Anuj Priest DO Primary Care Provider [facility], Pcp Primary Care Provider Unavailabl e Reason for Visit * Reason Onset Date Comments Information Needed 09/06/2019 Encounter Details Date Type Department Care Team Description 09/06/2019 Telephone Adult [address] [address] Yolande Nicholas DO Information Needed Social History Tobacco Use Types Packs/Day Years Used Date Smoking Tobacco: Former Cigarettes 1 35 Q uit: 07/26/2005 Smokeless Tobacco: Never Alcohol Use Standard Drinks/Week Comments Yes 0 (1 standard drink = 0.6 oz pure alcohol) 1 1/2 week ago. has now stopped Sex Assigned at Date Recorded Not on file documented as of this encounter Miscellaneous Notes * Telephone Encounter - Jaquan Perez M.A. - 09/06/2019 2:36 PM EDT [facility] - [phone] Left detailed msg for pt to call above number to request the discharge summary, Unable to get the D/C summary through [facility] * Telephone Encounter - Judith Cardenas - 09/06/2019 10:47 AM EDT Patient's girlfriend Ame is requesting the discharge summary to be faxed to Dr. Baker to [phone] * Telephone Encounter - Sabina Zaman - 09/06/2019 9:49 AM EDT Ame, the patient girlfriend is calling stating that the patient needs the discharge summary from [facility] to sent over to [facility], to Dr. Duc Baker for his audio visit 09/06/2019 in order for the patient to continue to get prescribe his anxiety medication. Please advise. documented in this encounter Plan of Treatment Not on file documented as of this encounter Visit Diagnoses Not on filedocumented in this encounter Care Teams Whey Department Operator Relationship Specialty Start Date End Date Yolande Nicholas DO PCP - General Internal Medicine 12/03/18 10/08/20 Anuj Priest DO PCP - General Internal Medicine 10/09/[address] [place] [address], Pcp PCP - General Internal Medicine 06/17/21 documented as of this encounter
--- OUTSIDE RECORDS SUMMARY | 2024-05-31 13:32 | XMS_ITS | Encounter Summary ---
Author Organization [facility] Address [address] [place] [address] Care Team Providers Care Sanitarian Aide Name Role Phone Ayo Carpio MD Primary Care Provider [phone] Annalee Jones MD Primary Care Provider Un available Yolande Nicholas DO Primary Care Pro vider Unavailable Anuj Priest DO Primary Care Provider [facility], Pcp Primary Care Provider Unavailabl e Encounter Details Date Type Department Care Team Description 10/06/2016 Environmental Services Aide Report Medical Records [address] [place] [address] Anuj Easton Social History Tobacco Use Types Packs/Day Years Used Date Smoking Tobacco: Former Cigarettes 1 35 Q uit: 07/26/2005 Smokeless Tobacco: Never Alcohol Use Standard Drinks/Week Comments No 0 (1 standard drink = 0.6 oz pur e alcohol) prior heavy stopped Sex Assigned at Date Recorded Not on file documented as of this encounter Plan of Treatment Not on file documented as of this encounter Visit Diagnoses Not on filedocumented in this encounter Care Teams Sanitarian Aide Relationship Specialty Start Date End Date Ayo Carpio MD [address] [place] [address] PCP - General Internal Medicine 07/19/16 01/05/17 Annalee Jones MD [address] [place] [address] PCP - General Internal Medicine 01/06/17 12/02/18 Yolande Nicholas, [address] [place] [address] PCP - General Internal Medicine 12/03/18 10/08/20 Anuj Priest, [address] [place] [address] PCP - General Internal Medicine 10/09/20 06/16/21 [facility], Pcp [address] [place] [address] PCP - General Internal Medicine 06/17/21 documented as of this encounter
--- OUTSIDE RECORDS SUMMARY | 2024-05-31 13:32 | XMS_ITS | Encounter Summary ---
Author Organization [facility] Address [address] [place] [address] Care Team Providers Care Doctor Of Naturopathic Medicine Name Role Phone Pierre Mccarthy MD Primary Care Provider Judy vailable Gerson Dawson MD Primary Care Provider Unavail able [facility], Pcp Primary Care Provider Unavailabl e Coleman Mccarthy MD Primary Care Provider Unavaila Ayo Demarco MD Primary Care Provider [phone] Annalee Jones MD Primary Care Provider Un available Yolande Nicholas DO Primary Care Pro vider Unavailable Anuj Priest DO Primary Care Provider Judy vailable [facility], Pcp Primary Care Provider Unavailabl e Reason for Visit * Reason Onset Date Comments Eye Injury 01/06/2014 Encounter Details Date Type Department Care Team Description 01/06/2014 Telephone Adult [address] [address] Pierre Mccarthy MD Eye Injury Social History Tobacco Use Types Packs/Day Years Used Date Smoking Tobacco: Former Cigarettes 1 35 Q uit: 07/26/2005 Smokeless Tobacco: Never Alcohol Use Standard Drinks/Week Comments No 0 (1 standard drink = 0.6 oz pur e alcohol) prior heavy stopped 3. Sex Assigned at Date Recorded Not on file documented as of this encounter Miscellaneous Notes * Telephone Encounter - Lolis Logan R.N. - 01/06/2014 2:50 PM EDT Patient poked himself in the eye yesterday. Eye started hurting and watering. He thought he had an eyelash in his eye. He has the pain in the eye and it is still watering. Patient told to go to the ER. He agrees and will go to [facility]. He requested that we call [facility] and let them know that he was coming. Spoke with Dora at [facility] and told her that patientwas coming. * Telephone Encounter - Dora Del Castillo - 01/06/2014 2:39 PM EDT Patient is returning a call to see the eye department. He said his eye is still hurting and watering. Puffy. He isn't sure if it was the comb or poked with scissors , he is starting to get a headache. * Telephone Encounter - Bushra Workman - 01/06/2014 1:44 PM EDT Symptoms patient is presenting: poked himself in eye on Monday, red, watery eye, sore today How long has patient had these symptoms?: 1 day PCP: Pierre Mccarthy [place] / [place] / Product Type: MEDICARE [id number] documented in this encounter Plan of Treatment Not on file documented as of this encounter Visit Diagnoses Not on filedocumented in this encounter Care Teams Doctor Of Naturopathic Medicine Relationship Specialty Start Date End Date Pierre Mccarthy MD PCP - General Internal Medicine 05/07/13 4 Gerson Dawson MD PCP - General Internal Medicine 01/30/14 03/20/14 [facility], Pcp PCP - General Internal Medicine 03/21/14 05/06/14 Coleman Mccarthy MD PCP - General Internal Medicine 05/07/14 07/18/16 Ayo Carpio MD [address] [place] [address] PCP - General Internal Medicine 07/19/16 01/05/17 Annalee Jones MD [address] [place], [place] [id number] PCP - General Internal Medicine 01/06/17 12/02/18 Yolande Nicholas, [address] [place], [place] [id number] PCP - General Internal Medicine 12/03/18 10/08/20 Anuj Priest DO [address] [place] [address] PCP - General Internal Medicine 10/09/20 06/16/21 [facility], Pcp PCP - General Internal Medicine 06/17/21 documented as of this encounter
--- OUTSIDE RECORDS SUMMARY | 2024-05-31 13:32 | XMS_ITS | Encounter Summary ---
Author Organization [facility] Address [address] [place] [address] Care Team Providers Care Automotive Sales Representative Name Role Phone Sesar Pereyra MD Primary Care Provider [phone] Encounter Details Date Type Department Care Team [...] FOR BEHAVIORAL HEALTH MED & PEDS [address] [place] [address] Sesar Pereyra MD [address] [place] [address] documented as of this encounter Visit Diagnoses Not on filedocumented in this encounter Additional Health Concerns Assessment Noted Time PHQ-9 Depression Total Score: 16 024 10:59 AM EDT documented as of this encounter Care Teams Automotive Sales Representative Relationship Specialty Start Date End Date Sesar Pereyra MD [address] [place] [address] PCP - General Internal Medicine [facility]01[facility] documented as of this encounter
--- OUTSIDE RECORDS SUMMARY | 2024-05-31 13:32 | XMS_ITS | Encounter Summary ---
Author Organization [facility] Address [address] [place] [address] Care Team Providers Care Store Operations Specialist Name Role Phone Yolande Nicholas DO Primary Care Pro vider Unavailable Anuj Priest DO Primary Care Provider [facility], Pcp Primary Care Provider Unavailabl e Reason for Visit * Reason Onset Date Comments Provider Call Back 01/29/2020 FYI Encounter Details Date Type Department Care Team Description 01/29/[address] [address] Yolande Nicholas DO Provider Call Back (FYI) Social History Tobacco Use Types Packs/Day Years Used Date Smoking Tobacco: Former Cigarettes 1 35 Q uit: 07/26/2005 Smokeless Tobacco: Never Alcohol Use Standard Drinks/Week Comments Yes 0 (1 standard drink = 0.6 oz pure alcohol) 1 1/2 week ago. has now stopped Sex Assigned at Date Recorded Not on file documented as of this encounter Miscellaneous Notes * Telephone Encounter - Yolande Banegas DO - 01/31/2020 4:33 PM EDT Thank you * Telephone Encounter - Bushra Wormkan - 01/29/2020 11:40 AM EDT Caller requesting call back from provider: Dr Kim BRENNER Is the caller the patient? NO If caller is not the patient, what is the callers name? Ame Callers relationship to patient? caregiver If person calling is not the patient themselves, is there a verbal release in FYI or permanent comments for this person: YES Reason for call back: [facility]. Going to ER and hoping tohave him admitted today. Has consultation with Dr Ben Rodriguez, endovascular surgeon on 02-06-20 [place] Caller offered to speak with the nurse for assistance: YES Response: Patient offered to speak with nurse for assistance and patient agreed. Message forwarded to nurse. documented in this encounter Plan of Treatment Not on file documented as of this encounter Visit Diagnoses Not on filedocumented in this encounter Care Teams Store Operations Specialist Relationship Specialty Start Date End Date Yolande Nicholas DO PCP - General Internal Medicine 12/03/18 10/08/20 Anuj Priest DO PCP - General Internal Medicine 10/09/20 2 [facility], Pcp PCP - General Internal Medicine 06/17/21 documented as of this encounter
--- OUTSIDE RECORDS SUMMARY | 2024-05-31 13:32 | XMS_ITS | Encounter Summary ---
Author Organization [facility] Address [address] [place] [address] Care Team Providers Care Hydrochloric Area Supervisor Name Role Phone Yolande Nicholas DO Primary Care Pro vider Unavailable Anuj Priest DO Primary Care Provider [facility], Pcp Primary Care Provider Unavailabl e Reason for Visit * Reason Onset Date Comments Faxed Order 12/20/2019 [facility] Encounter Details Date Type Department Care Team Description 12/20/2019 Telephone Adult Medicine [address] [address] Yolande Nicholas DO Faxed Order ([facility]) Social History Tobacco Use Types Packs/Day Years Used Date Smoking Tobacco: Former Cigarettes 1 35 Q uit: 07/26/2005 Smokeless Tobacco: Never Alcohol Use Standard Drinks/Week Comments Yes 0 (1 standard drink = 0.6 oz pure alcohol) 1 1/2 week ago. has now stopped Sex Assigned at Date Recorded Not on file documented as of this encounter Miscellaneous Notes * Telephone Encounter - Fabi Orourke - 01/03/2020 1:42 PM EDT More faxed orders received * Telephone Encounter - Sharmaine Bose - 12/24/2019 10:08 AM EDT Multiple orders to be signed and faxed back * Telephone Encounter - Sharmaine Bose - 12/20/2019 10:35 AM EDT Physican order to be signed and faxed back documented in this encounter Plan of Treatment Not on file documented as of this encounter Visit Diagnoses Not on filedocumented in this encounter Care Teams Hydrochloric Area Supervisor Relationship Specialty Start Date End Date Yolande Nicholas DO PCP - General Internal Medicine 12/03/18 10/08/20 Anuj Priest DO PCP - General Internal Medicine 10/09/20 2 [facility], Pcp PCP - General Internal Medicine 06/17/21 documented as of this encounter
--- OUTSIDE RECORDS SUMMARY | 2024-05-31 13:32 | XMS_ITS | Encounter Summary ---
Author Organization [facility] Address [address] [facility] 7t [place] [address] Care Team Providers Care Reiki Practitioner Name Role Phone Sesar Pereyra MD Primary Care Provider [phone] Reason for Visit * Reason Comments Flank Pain ?ranal calculi Encounter Details Date Type Department Care Team ([facility] st Contact Info) Description 05/07/2024 9:15 AM EST Office Visit [facility] MED & PEDS [address] [place] [address] Natasha Jiang MD [address] [place] [address] Kidney stone (Primary Dx) Social History Tobacco [...] Upcoming Encounters Date Type Department Care Team ([facility] st Contact Info) Description 06/13/2024 1:00 PM EST Office Visit [facility] MED & PEDS [address] [place], [place] [phone] Sesar Pereyra MD [address] [place], [place] [phone] documented as of this encounter Procedures Procedure [...] EST Narrative 05/07/2024 10:48 AM EST ? [facility] ?[address] ?[place] [address] ?XRay Report ? Signed ? Patient: Tho,Alex ?MR#: [id number] ?? [id number] ? : 1945 ?Acct:[id number] ? Age/Sex: 79 / M ?ADM Date: //25 ? Loc: HO.XRAY ? Attending Dr: Natasha Jiang MD ? Ordering Physician: Natasha Jiang MD ?? Date of Service: 05/07/24 ?? Procedure(s): XR KUB ?? Accession Number(s): [id number] ? cc: Sesar Pereyra MD; Natasha Jiang [...] DD/ 1021 ? TD/TT: 05/07/24 1040 ? Lease Out Man: ? Procedure Note Timmelotaylornallely, Image - 05/07/2024 [place] [address] XRay Report Signed Patient: Ronald Nettles#: [id number] : [id number]:[id number] Age/Sex: 79 / MADM Date: 05/07/24 Loc: HO.RICKIAY Attending Dr: Natasha Jiang MD Ordering Physician: Natasha Jiang MD Date of Service: 05/07/24 Procedure(s): XR KUB Accession Number(s): [id number] cc: Sesar Pereyra MD; Natasha Jiang MD [...] 05/07/24 1045 DD/ 1021 TD/TT: 05/07/24 1040 Lease Out Man: Natasha Jiang MD IMG XR PROCEDURES Edited [...] documented as of this encounter Care Teams Reiki Practitioner Relationship Specialty Start Date End Date Sesar Pereyra MD [address] [place] [address] PCP - General Internal Medicine 03/01/21 [facility] 03/22/24 documented as of this encounter
--- OUTSIDE RECORDS SUMMARY | 2024-05-31 13:32 | XMS_ITS | Encounter Summary ---
Author Organization [employer] Address [address] [facility] 7t [place] [address] Care Team Providers Care Head Butler Name Role Phone Sesar Pereyra MD Primary Care Provider [phone] Encounter Details Date Type Department Care Team (Late st Contact Info) Description 04/02/2024 Orders Only [facility] [address] [place] [address] Provider, MD Jazmyn Social History Tobacco Use [...] 06/13/2024 1:00 PM EST Office Visit [facility] MED & PEDS [address] [place] [address] Sesar Pereyra MD [address] [place] [address] documented as of this encounter Procedures Procedure [...] documented as of this encounter Care Teams Head Butler Relationship Specialty Start Date End Date Sesar Pereyra MD [address] [place] [address] PCP - General Internal Medicine 03/01/21 [facility] 03/22/24 documented as of this encounter
--- OUTSIDE RECORDS SUMMARY | 2024-05-31 13:32 | XMS_ITS | Encounter Summary ---
Author Organization [facility] Address [address] [place] [address] Care Team Providers Care Steamer Operator Name Role Phone Ghassan Burciaga MD Primary Care Provider Unavail able Pierre Arevalo MD Primary Care Provider Judy vailable Gerson Dawson MD Primary Care Provider Unavail able [facility], Pcp Primary Care Provider Unavailabl e Coleman Mccarthy MD Primary Care Provider Unavaila Ayo Demarco MD Primary Care Provider [phone] Annalee Jones MD Primary Care Provider Un available Pascual Nicholasabela DO Primary Care Pro vider Unavailable Anuj Priest DO Primary Care Provider Judy vailable [facility], Pcp Primary Care Provider Unavailabl e Encounter Details Date Type Department Care Team Description 08/26/2011 Farm Crops Teacher Report Medical Records [address] [place] [address] Anuj Easton Social History Tobacco Use Types [...] on filedocumented in this encounter Care Teams Steamer Operator Relationship Specialty Start Date End Date Ghassan Burciaga MD PCP - General 07/24/00 05/06/13 Pierre Arevalo MD PCP - General Internal Medicine 05/07/13 4 Gerson Dawson MD PCP - General Internal Medicine 01/30/14 03/20/14 [facility], Pcp PCP - General Internal Medicine 03/21/14 05/06/14 Coleman Mccarthy MD PCP - General Internal Medicine 05/07/14 07/18/16 Ayo Carpio MD [address] [place], [place] [phone] PCP - General Internal Medicine 07/19/16 01/05/17 Annalee Jones MD [address] [place], [place] [phone] PCP - General Internal Medicine 01/06/17 12/02/18 Yolande Nicholas DO [address] [place] [address] PCP - General Internal Medicine 12/03/18 10/08/20 Anuj Priest DO [address] [place] [address] PCP - General Internal Medicine 10/09/20 06/16/21 Counts Include [facility], Pcp PCP - General Internal Medicine 06/17/21 documented as of this encounter
--- OUTSIDE RECORDS SUMMARY | 2024-05-31 13:32 | XMS_ITS | Encounter Summary ---
Author Organization [employer] Address [address] [facility] 7t [place] [address] Care Team Providers Care Tuyere Fitter Name Role Phone Sesar Pereyra MD Primary Care Provider [phone] Encounter Details Date Type Department Care Team ([facility] st Contact Info) Description 04/01/2024 Orders Only [facility] CHC MED & PEDS [address] [place], [place] [phone] Sesar Pereyra MD [address] [place] [address] Essential hypertension (Primary Dx) Social History Tobacco [...] Encounters Date Type Department Care Team ([facility] st Contact Info) Description 06/13/2024 1:00 PM EST Office Visit [facility] MED & PEDS [address] [place] [address] Sesar Pereyra MD [address] [place] [address] documented as of this encounter Visit Diagnoses Diagnosis Essential hypertension- Primary Unspecified essential hypertension documented in this encounter Additional Health Concerns Assessment Noted Time PHQ-9 Depression Total Score: 16 024 10:59 AM EDT documented as of this encounter Care Teams Tuyere Fitter Relationship Specialty Start Date End Date Sesar Pereyra MD [address] [place] [address] PCP - General Internal Medicine 03/01/21 [facility] 03/22/24 documented as of this encounter
--- OUTSIDE RECORDS SUMMARY | 2024-05-31 13:32 | XMS_ITS | Encounter Summary ---
Author Organization [facility] Address [address] [place] [address] Care Team Providers Care Patrol Judge Name Role Phone Yolande Nicholas DO Primary Care Pro vider Unavailable Anuj Priest DO Primary Care Provider [facility], Pcp Primary Care Provider Unavailabl e Encounter Details Date Type Department Care Team Description 09/04/2019 Telephone Internal Medicine - [address], [address] [place] [address] Alana Stinson MD [address] [place] [phone] Social History Tobacco Use Types Packs/Day Years Used Date Smoking Tobacco: Former Cigarettes 1 35 Q uit: 07/26/2005 Smokeless Tobacco: Never Alcohol Use Standard Drinks/Week Comments Yes 0 (1 standard drink = 0.6 oz pure alcohol) 1 1/2 week ago. has now stopped Sex Assigned at Date Recorded Not on file documented as of this encounter Miscellaneous Notes * Telephone Encounter - Patricia Ambrosio M.A. - 09/04/2019 4:05 PM EDT Spoke to someone from [facility] they will send discharge notes. * Telephone Encounter - Alana Stinson MD - 09/04/2019 11:48 AM EDT PLS GET DISCHARGE SUMMARY FROM [facility] IN [place], documented in this encounter Plan of Treatment Not on file documented as of this encounter Visit Diagnoses Not on filedocumented in this encounter Care Teams Patrol Judge Relationship Specialty Start Date End Date Yolande Nicholas DO PCP - General Internal Medicine 12/03/18 10/08/20 Anuj Priest DO PCP - General Internal Medicine 10/09/20 2 [facility], Pcp PCP - General Internal Medicine 06/17/21 documented as of this encounter
--- OUTSIDE RECORDS SUMMARY | 2024-05-31 13:32 | XMS_ITS | Encounter Summary ---
Author Organization [facility] Address [address] [place] [address] Care Team Providers Care Skoog Operator Name Role Phone Yolande Nicholas DO Primary Care Pro vider Unavailable Anuj Priest DO Primary Care Provider Judy álvarez [facility], Pcp Primary Care Provider Unavailabl e Encounter Details Date Type Department Care Team Description 09/07/2020 Insurance Claims Assistant Report Medical Records [address] [place] [address] Dhruv Garcia MD Social History Tobacco Use [...] on filedocumented in this encounter Care Teams Skoog Operator Relationship Specialty Start Date End Date Yolande Nicholas DO PCP - General Internal Medicine 12/03/18 10/08/20 Anuj Priest DO PCP - General Internal Medicine 10/09/20 Molly Gardner, Pcp PCP - General Internal Medicine 06/17/21 documented as of this encounter
--- OUTSIDE RECORDS SUMMARY | 2024-05-31 13:32 | XMS_ITS | Encounter Summary ---
Author Organization [facility] Address [address] [place] [address] Care Team Providers Care Pigment Making Supervisor Name Role Phone Ayo Carpio MD Primary Care Provider [phone] Annalee Jones MD Primary Care Provider Un available Yolande Nicholas DO Primary Care Pro vider Unavailable Anuj Priest DO Primary Care Provider Judy [facility], Pcp Primary Care Provider Unavailabl e Encounter Details Date Type Department Care Team Description 08/05/2016 Release of Information Medical Records [address] [place] [id number] Abstract, Provider Social History Tobacco Use Types Packs/Day Years [...] on filedocumented in this encounter Care Teams Pigment Making Supervisor Relationship Specialty Start Date End Date Ayo Carpio MD [address] [place] [phone] PCP - General Internal Medicine 07/19/16 01/05/17 Annalee Jones MD [address] [place] [address] PCP - General Internal Medicine 01/06/17 12/02/18 Yolande Nicholas, [address] [place] [address] PCP - General Internal Medicine 12/03/18 10/08/20 Anuj Priest DO [address] [place] [address] PCP - General Internal Medicine 10/09/20 06/16/21 [facility], Pcp [address] [place] [address] PCP - General Internal Medicine 06/17/21 documented as of this encounter
--- OUTSIDE RECORDS SUMMARY | 2024-05-31 13:32 | XMS_ITS | Encounter Summary ---
Author Organization [facility] Address [address] [place] [address] Care Team Providers Care Skid Man Name Role Phone Ghassan Burciaga MD Primary Care Provider Unavail able Pierre Arevalo MD Primary Care Provider Judy vailable Gerson Dawson MD Primary Care Provider Unavail able [facility], Pcp Primary Care Provider Unavailabl e Coleman Mccarthy MD Primary Care Provider Unavaila Ayo Demarco MD Primary Care Provider [phone] Annalee Jones MD Primary Care Provider Un available Pascual Nicholasabela DO Primary Care Pro vider Unavailable Anuj Priest DO Primary Care Provider Judy vailable [facility], Pcp Primary Care Provider Unavailabl e Encounter Details Date Type Department Care Team Description 11/07/2012 Pt. Non Urgent Medic al Question Medicine/Pediatrics - [address] [phone] Ghassan Burciaga MD Social History Tobacco Use Types Packs/Day Years Used Date Smoking Tobacco: Former Cigarettes 1 35 Q uit: 07/26/2005 Smokeless Tobacco: Never Alcohol Use Standard Drinks/Week Comments No 0 (1 standard drink = 0.6 oz pur e alcohol) prior heavy stopped 3. Sex Assigned at Date Recorded Not on file documented as of this encounter Progress Notes * Raiza Monge L.P.N. - 11/07/2012 3:03 PM EDTFrom: ALEX VELEZ To: Ghassan Burciaga MD Sent: MonNov 07, 2012 3:01 PM Subject: prescription [id number] Rohith Leung documented in this encounter Plan of Treatment Not on file documented as of this encounter Visit Diagnoses Not on filedocumented in this encounter Care Teams Skid Man Relationship Specialty Start Date End Date Ghassan Burciaga MD PCP - General 07/24/00 05/06/13 Pierre Arevalo MD PCP - General Internal Medicine 05/07/13 4 Gerson Dawson MD PCP - General Internal Medicine 01/30/14 03/20/14 [facility], Pcp PCP - General Internal Medicine 03/21/14 05/06/14 Coleman Mccarthy MD PCP - General Internal Medicine 05/07/14 07/18/16 Ayo Carpio MD [address] [place], [place] [phone] PCP - General Internal Medicine 07/19/16 01/05/17 Annalee Jones MD [address] [place] [address] PCP - General Internal Medicine 01/06/17 12/02/18 Yolande Nicholas, DO [address] [place] [address] PCP - General Internal Medicine 12/03/18 10/08/20 Anuj Priest, [address] [place] [address] PCP - General Internal Medicine 10/09/20 06/16/21 [facility], Pcp PCP - General Internal Medicine 06/17/21 documented as of this encounter
--- OUTSIDE RECORDS SUMMARY | 2024-05-31 13:32 | XMS_ITS | Encounter Summary ---
Author Organization [facility] Address [address] [place] [address] Care Team Providers Care Lifter Name Role Phone Ghassan Burciaga MD Primary Care Provider Unavail able Pierre Arevalo MD Primary Care Provider Judy vailable Gerson Dawson MD Primary Care Provider Unavail able [facility], Pcp Primary Care Provider Unavailabl e Coleman Mccarthy MD Primary Care Provider Unavaila Ayo Demarco MD Primary Care Provider [phone] Annalee Jones MD Primary Care Provider Un available Pascual Nicholasabela DO Primary Care Pro vider Unavailable Anuj Priest DO Primary Care Provider Judy vailable [facility], Pcp Primary Care Provider Unavailabl e Encounter Details Date Type Department Care Team Description 04/30/2007 Hospital Medical Records [address] [place] [address] Anuj Easton Jr. [facility] [address] [place], [place] [phone] Social History Tobacco Use Types Packs/Day Years [...] on filedocumented in this encounter Care Teams Lifter Relationship Specialty Start Date End Date Ghassan Burciaga MD PCP - General 07/24/00 05/06/13 Pierre Arevalo MD PCP - General Internal Medicine 05/07/13 4 Gerson Dawson MD PCP - General Internal Medicine 01/30/14 03/20/14 [facility], Pcp PCP - General Internal Medicine 03/21/14 05/06/14 Coleman Mccarthy MD PCP - General Internal Medicine 05/07/14 07/18/16 Ayo Carpio MD [address] [place] [address] PCP - General Internal Medicine 07/19/16 01/05/17 Annalee Jones MD [address] [place] [address] PCP - General Internal Medicine 01/06/17 12/02/18 Yolande Nicholas, DO [address] [place] [address] PCP - General Internal Medicine 12/03/18 10/08/20 Anuj Priest, DO [address] [place] [address] PCP - General Internal Medicine 10/09/20 06/16/21 [facility], Pcp PCP - General Internal Medicine 06/17/21 documented as of this encounter
--- OUTSIDE RECORDS SUMMARY | 2024-05-31 13:32 | XMS_ITS | Encounter Summary ---
Author Organization [employer] Address [address] [facility] 7t [place] [address] Care Team Providers Care Calker Name Role Phone Sesar Pereyra MD Primary Care Provider [phone] Reason for Visit * Reason Onset Date Comments Nurse Triage 05/06/2024 Encounter Details Date Type Department Care Team ([facility] st Contact Info) Description 05/06/2024 Telephone [facility] CH[facility] MED & PEDS [address] [place] [address] Sesar Pereyra MD [address] [place] [address] Nurse Triage Social History Tobacco Use Types [...] symptoms that require immediate evaluation in the [facility] ED. Patient verbalized understanding and in agreement [...] report possible kidney stones . Patient speaks Filipino. Advised triage nurse will call patient back. documented in this encounter Plan of Treatment Upcoming Encounters Date Type Department Care Team ([facility] st Contact Info) Description 06/13/2024 1:00 PM EST Office Visit [facility] MED & PEDS [address] [place] [address] Sesar Pereyra MD [address] [place] [address] documented as of this encounter Visit Diagnoses Not on filedocumented in this encounter Additional Health Concerns Assessment Noted Time PHQ-9 Depression Total Score: 16 024 10:59 AM EDT documented as of this encounter Care Teams Calker Relationship Specialty Start Date End Date Sesar Pereyra MD [address] [place] [address] PCP - General Internal Medicine 03/01/21 [facility] 03/[facility] documented as of this encounter
--- OUTSIDE RECORDS SUMMARY | 2024-05-31 13:32 | XMS_ITS | Encounter Summary ---
Author Organization [facility] Address [address] [place] [address] Care Team Providers Care Locum Tenens Name Role Phone Yolande Nicholas DO Primary Care Pro vider Unavailable Anuj Priest DO Primary Care Provider [facility], Pcp Primary Care Provider Unavailabl e Reason for Visit * Reason Onset Date Comments Mychart Rx Refill 06/27/2020 Encounter Details Date Type Department Care Team Description 06/27/2020 Refill Adult Medicine [address] [address] Yolande Nicholas DO Mychart Rx Refill Social History Tobacco Use Types Packs/Day Years Used Date Smoking Tobacco: Former Cigarettes 1 35 Q uit: 07/26/2005 Smokeless Tobacco: Never Alcohol Use Standard Drinks/Week Comments Yes 0 (1 standard drink = 0.6 oz pure alcohol) 1 1/2 week ago. has now stopped Sex Assigned at Date Recorded Not on file COVID-19 Exposure Response Date Recorded In the last month, have you been in contact with someone who was confirmed or suspected to have Coronavirus / COVID-19? No / Unsure 06/29/2020 1:54 PM EST documented as of this encounter Miscellaneous Notes * Telephone Encounter - Kira Lee M.A. - 06/29/2020 8:26 AM EST Lab Results Component Value Date CHOL 220 02/08/2019 LDL 154 02/08/2019 HDL 39 02/08/2019 TRIG 135 02/08/2019 SGOT 21 01/12/2018 SGPT 25 01/12/2018 Lab Results Component Value Date NA 137 02/08/2019 K 5.1 02/08/2019 CO2 28 02/08/2019 CL 104 02/08/2019 BUN 26 02/08/2019 CREAT 1.22 02/08/2019 GLU 93 02/08/2019 CA 9.5 02/08/2019 GFR 59 02/08/2019 appt today with Mendy * Telephone Encounter - Kira Lee M.A. - 06/29/2020 8:26 AM ESTFrom: Alex Nettles Sent: 06/27/2020 3:54 PM EST Subject: Medication Renewal Request Alxe Nettles would like a refill of the following medications: Other - The pharmist is waiting for these two scripts so he can fill the bubble packs [facility] up Preferred pharmacy: [facility] [address] Medication renewals requested in this message routed separately: atorvastatin (LIPITOR) 80 MG tablet [Yolande Gomez DO] metoprolol (LOPRESSOR) 25 MG tablet [Yolande Gomez DO] documented in this encounter Plan of Treatment Not on file documented as of this encounter Visit Diagnoses Not on filedocumented in this encounter Care Teams Locum Tenens Relationship Specialty Start Date End Date Yolande Nicholas DO PCP - General Internal Medicine 12/03/18 10/08/20 Anuj Priest DO PCP - General Internal Medicine 10/09/[address] [place] [address], Pcp PCP - General Internal Medicine 06/17/21 documented as of this encounter
--- OUTSIDE RECORDS SUMMARY | 2024-05-31 13:32 | XMS_ITS | Encounter Summary ---
Author Organization [facility] Address [address] [place] [address] Care Team Providers Care Value Advisor Name Role Phone Yolande Nicholas DO Primary Care Pro vider Unavailable Anuj Priest DO Primary Care Provider [facility], Pcp Primary Care Provider Unavailabl e Reason for Visit * Reason Comments E-prescribe Rx Request Encounter Details Date Type Department Care Team Description 01/24/2020 Refill Adult Medicine [address] [address] Alana Stinson MD [address] [place] [phone] E-prescribe Rx Request Social History Tobacco Use Types Packs/Day Years [...] Telephone Encounter - Kira Lee M.A. - 01/24/2020 12:25 PM EDT Lab Results Component Value Date NA 137 02/08/2019 K 5.1 02/08/2019 CO2 28 02/08/2019 CL 104 02/08/2019 BUN 26 02/08/2019 CREAT 1.22 02/08/2019 GLU 93 02/08/2019 CA 9.5 02/08/2019 GFR 59 02/08/2019 Pending appt with pcp 02/24/20 * Telephone Encounter - Jessica Celis - 01/24/2020 12:04 PM EDT Patient would like script to be: E-PRESCRIBED/FAXED TO PHARMACY WHEN WAS THE PATIENT'S LAST APPOINTMENT IN ADULT MEDICINE? 11/22/2019 WHEN WAS THE LAST TIME THE PATIENT SAW THEIR PCP? Same as above Does patient have an upcoming appointment? Yes 02/24/2020 (THE MEDICATION REQUESTED IS ON THE MED [...] N/A Patients current insurance carrier is: Payor: [employer] - MEDICARE / Plan: MEDICARE FFS $5 [id number] / Product Type: MEDICARE [id number] documented in this encounter Plan of Treatment Not on file documented as of this encounter Visit Diagnoses Not on filedocumented in this encounter Care Teams Value Advisor Relationship Specialty Start Date End Date Yolande Nicholas DO PCP - General Internal Medicine 12/03/18 10/08/20 Anuj Priest DO PCP - General Internal Medicine 10/09/20 2 [facility], Pcp PCP - General Internal Medicine 06/17/21 documented as of this encounter
--- OUTSIDE RECORDS SUMMARY | 2024-05-31 13:32 | XMS_ITS | Encounter Summary ---
Author Organization [facility] Address [address] [place] [address] Care Team Providers Care Chrome Worker Name Role Phone Ayo Carpio MD Primary Care Provider [phone] Annalee Jones MD Primary Care Provider Un available Yolande Nicholas DO Primary Care Pro vider Unavailable Anuj Priest DO Primary Care Provider Judy [facility], Pcp Primary Care Provider Unavailabl e Encounter Details Date Type Department Care Team Description 11/28/2016 SCAN Medical Records [address] [place] [address] Abstract, Provider Social History Tobacco Use Types [...] on filedocumented in this encounter Care Teams Chrome Worker Relationship Specialty Start Date End Date Ayo Carpio MD [address] [place] [phone] PCP - General Internal Medicine 07/19/16 01/05/17 Annalee Jones MD [address] [place] [address] PCP - General Internal Medicine 01/06/17 12/02/18 Yolande Nicholas, [address] [place] [address] PCP - General Internal Medicine 12/03/18 10/08/20 Anuj Priest DO [address] [place] [address] PCP - General Internal Medicine 10/09/20 06/16/21 [facility], Pcp [address] [place], [place] [phone] PCP - General Internal Medicine 06/17/21 documented as of this encounter
--- OUTSIDE RECORDS SUMMARY | 2024-05-31 13:32 | XMS_ITS | Encounter Summary ---
Author Organization [facility] Address [address] [place] [address] Care Team Providers Care Drying Machine Tender Name Role Phone Yolande Nicholas DO Primary Care Pro vider Unavailable Anuj Priest DO Primary Care Provider Judy álvarez [facility], Pcp Primary Care Provider Unavailabl e Encounter Details Date Type Department Care Team Description 01/13/2020 [place] Trimmer Report Medical Records [address] [place] [address] Carl Rai MD Social History Tobacco Use Types Packs/Day [...] on filedocumented in this encounter Care Teams Drying Machine Tender Relationship Specialty Start Date End Date Yolande Nicholas DO PCP - General Internal Medicine 12/03/18 10/08/20 Anuj Priest DO PCP - General Internal Medicine 10/09/20 J[facility], Pcp PCP - General Internal Medicine 06/17/21 documented as of this encounter
--- OUTSIDE RECORDS SUMMARY | 2024-05-31 13:32 | XMS_ITS | Encounter Summary ---
Author Organization [facility] Address [address] [place] [address] Care Team Providers Care Supervisor Slitting And Shipping Name Role Phone Yolande Nicholas DO Primary Care Pro vider Unavailable Anuj Priest DO Primary Care Provider Judy Gardner, Pcp Primary Care Provider Unavailabl e Encounter Details Date Type Department Care Team Description 01/03/2020 Greens Laborer Report Medical Records [address] [place] [address] Cedrick Siddiqui Social History Tobacco Use Types Packs/Day Years [...] on filedocumented in this encounter Care Teams Supervisor Slitting And Shipping Relationship Specialty Start Date End Date Yolande Nicholas DO PCP - General Internal Medicine 12/03/18 10/08/20 Anuj Priest DO PCP - General Internal Medicine 10/09/20 2 Jj, Pcp PCP - General Internal Medicine 06/17/21 documented as of this encounter
--- OUTSIDE RECORDS SUMMARY | 2024-05-31 13:32 | XMS_ITS | Encounter Summary ---
Author Organization [employer] Address [address] [facility] 7t [place] [address] Care Team Providers Care Rug Dyer Name Role Phone Sesar Pereyra MD Primary Care Provider [phone] Reason for Visit * Reason Onset Date Comments Med Refill 04/26/2024 Encounter Details Date Type Department Care Team ([facility] st Contact Info) Description 04/26/2024 Telephone [facility] MEDICINE [address] [place] [address] Sesar Pereyra MD [address] [place] [address] Med Refill Social History Tobacco Use Types [...] 7.5 MG tablet To be sent to: [email or web address] - [place], [place] [facility] [address] [facility] documented in this encounter Plan of Treatment Upcoming Encounters Date Type Department Care Team (Late st Contact Info) Description 06/13/2024 1:00 PM EST Office Visit [facility] MED & PEDS [address] [place] [address] Sesar Pereyra MD [address] [place] [address] documented as of this encounter Visit Diagnoses Not on filedocumented in this encounter Additional Health Concerns Assessment Noted Time PHQ-9 Depression Total Score: 16 024 10:59 AM EDT documented as of this encounter Care Teams Rug Dyer Relationship Specialty Start Date End Date Sesar Pereyra MD [address] [place] [address] PCP - General Internal Medicine 03/01/21 [facility] 03/22/24 documented as of this encounter
--- OUTSIDE RECORDS SUMMARY | 2024-05-31 13:32 | XMS_ITS | Encounter Summary ---
Author Organization [employer] Address [address] [facility] 7[address] [place] [address] Care Team Providers Care Solar Installation Technician Name Role Phone Sesar Pereyra MD Primary Care Provider [phone]- [phone] Encounter Details Date Type Department Care Team ([facility] st Contact Info) Description 04/29/2024 Orders Only [facility] MED & PEDS [address] [place], [place] [phone] Sesar Pereyra MD [address] [place] [address] Closed nondisplaced fracture of acromial end of [...] [facility] MED & PEDS [address] [place] [address] Sesar Pereyra MD [address] [place] [address] documented as of this encounter Visit Diagnoses Diagnosis Closed nondisplaced fracture of acromial end of right clavicle, initial encounter documented in this encounter Additional Health Concerns Assessment Noted Time PHQ-9 Depression Total Score: 16 024 10:59 AM EDT documented as of this encounter Care Teams Solar Installation Technician Relationship Specialty Start Date End Date Sesar Pereyra MD [address] [facility] [place] [address] PCP - General Internal Medicine [facility]01[facility] 03/22/24 documented as of this encounter
--- OUTSIDE RECORDS SUMMARY | 2024-05-31 13:32 | XMS_ITS | Encounter Summary ---
Author Organization [facility] Address [address] [place] [address] Care Team Providers Care Insurance Healthcare Representative Name Role Phone Yolande Nicholas DO Primary Care Pro vider Unavailable Anuj Priest DO Primary Care Provider [facility], Pcp Primary Care Provider Unavailabl e Reason for Visit * Reason Onset Date Comments VNA Call 12/28/2019 Encounter Details Date Type Department Care Team Description 12/28/2019 Telephone Adult Urgent Care - [address] [address] Yolande Nicholas DO VNA Call Social History Tobacco Use Types Packs/Day Years Used Date Smoking Tobacco: Former Cigarettes 1 35 Q uit: 07/26/2005 Smokeless Tobacco: Never Alcohol Use Standard Drinks/Week Comments Yes 0 (1 standard drink = 0.6 oz pure alcohol) 1 1/2 week ago. has now stopped Sex Assigned at Date Recorded Not on file documented as of this encounter Miscellaneous Notes * Telephone Encounter - Minerva Kan R.N. - 12/30/2019 3:20 PM EDT * Telephone Encounter - Yolande Banegas DO - 12/30/2019 6:54 AM EDT Pt in hosp for vascular surgery. VNA orders/calls/questions go to the surgeon * Telephone Encounter - Isabelle Hewitt L.P.N. - 12/28/2019 1:31 PM EDT Pt d/c from hospital, peripheral IV line was still in place, nobody has been flushing it, no IV meds indicated. Order given to pull IV. FYI * Telephone Encounter - Shandra Galeano - 12/28/2019 1:27 PM EDT Vna calling again Needs call julian * Telephone Encounter - Chun Cardenas - 12/28/2019 12:52 PM EDT VNA CALL Which VNA office is calling? [place] [facility] Full name of caller: Bev The caller is A nurse Is the caller at the patients home?: YES Reason for call: The pt was released from the hospital needs orders to pull peripheral IV line Does caller need an urgent call back? NO Was CONTACT Telephone # obtained above?: YES Fax #: documented in this encounter Plan of Treatment Not on file documented as of this encounter Visit Diagnoses Not on filedocumented in this encounter Care Teams Insurance Healthcare Representative Relationship Specialty Start Date End Date Yolande Nicholas DO PCP - General Internal Medicine 12/03/18 10/08/20 Anuj Priest DO PCP - General Internal Medicine 10/09/[address] [place] [address], Pcp PCP - General Internal Medicine 06/17/21 documented as of this encounter
--- OUTSIDE RECORDS SUMMARY | 2024-05-31 13:32 | XMS_ITS | Encounter Summary ---
Author Organization [facility] Address [address] [place] [address] Care Team Providers Care Telepathist Name Role Phone Yolande Nicholas DO Primary Care Pro vider Unavailable Anuj Priest DO Primary Care Provider [facility], Pcp Primary Care Provider Unavailabl e Reason for Visit * Reason Comments E-prescribe Rx Request Encounter Details Date Type Department Care Team Description 01/01/2020 Refill Adult Medicine [address] [address] Alana Stinson MD [address] [place] [phone] E-prescribe Rx Request Social History Tobacco [...] Telephone Encounter - Kira Lee M.A. - 01/07/2020 4:50 PM EDT Lab Results Component Value Date NA 137 02/08/2019 K 5.1 02/08/2019 CO2 28 02/08/2019 CL 104 02/08/2019 BUN 26 02/08/2019 CREAT 1.22 02/08/2019 GLU 93 02/08/2019 CA 9.5 02/08/2019 GFR 59 02/08/2019 Last appt 11/22/19 documented in this encounter Plan of Treatment Not on file documented as of this encounter Visit Diagnoses Not on filedocumented in this encounter Care Teams Telepathist Relationship Specialty Start Date End Date Yolande Nicholas DO PCP - General Internal Medicine 12/03/18 10/08/20 Anuj Priest DO PCP - General Internal Medicine 10/09/20 2 [facility], Pcp PCP - General Internal Medicine 06/17/21 documented as of this encounter
--- OUTSIDE RECORDS SUMMARY | 2024-05-31 13:32 | XMS_ITS | Encounter Summary ---
Author Organization [facility] Address [address] [place] [address] Care Team Providers Care Line Haul Owner Operator Name Role Phone Yolande Nicholas DO Primary Care Pro vider Unavailable Anuj Priest DO Primary Care Provider Judy Gardner, Pcp Primary Care Provider Unavailabl e Encounter Details Date Type Department Care Team Description 2020 Hospital Medical Records [address] [place] [address] Abstract, Provider Social History Tobacco Use Types [...] on filedocumented in this encounter Care Teams Line Haul Owner Operator Relationship Specialty Start Date End Date Yolande Nicholas DO PCP - General Internal Medicine 12/03/18 10/08/20 Anju Priest DO PCP - General Internal Medicine 10/09/20 2 Jj, Pcp PCP - General Internal Medicine 06/17/21 documented as of this encounter
--- OUTSIDE RECORDS SUMMARY | 2024-05-31 13:32 | XMS_ITS | Encounter Summary ---
Author Organization [employer] [facility] Address [address] [place] [address] Care Team Providers Care Heel Trimmer Name Role Phone Ghassan Burciaga MD Primary Care Provider Unavail able Pierre Arevalo MD Primary Care Provider Judy vailable Gerson Dawson MD Primary Care Provider Unavail able [facility], Pcp Primary Care Provider Unavailabl e Coleman Mccarthy MD Primary Care Provider Unavaila Ayo Demarco MD Primary Care Provider [phone] Annalee Jones MD Primary Care Provider Un available Pascual Nicholsaabela DO Primary Care Pro vider Unavailable Anuj Priest DO Primary Care Provider Judy vailable [facility], Pcp Primary Care Provider Unavailabl e Encounter Details Date Type Department Care Team Description 01/30/2009 Hospital Medical Records [address] [place] [address] Fernie Higginbotham MD Social History Tobacco Use Types Packs/Day [...] on filedocumented in this encounter Care Teams Heel Trimmer Relationship Specialty Start Date End Date Ghassan Burciaga MD PCP - General 07/24/00 05/06/13 Pierre Arevalo MD PCP - General Internal Medicine 05/07/13 4 Gerson Dawson MD PCP - General Internal Medicine 01/30/14 03/20/14 [facility], Pcp PCP - General Internal Medicine 03/21/14 05/06/14 Coleman Mccarthy MD PCP - General Internal Medicine 05/07/14 07/18/16 Ayo Carpio MD [address] [place], [place] [id number] PCP - General Internal Medicine 07/19/16 01/05/17 Annalee Jones MD [address] [place], [place] [id number] PCP - General Internal Medicine 01/06/17 12/02/18 Yolande Nicholas DO [address] [place] [address] PCP - General Internal Medicine 12/03/18 10/08/20 Anuj Priest DO [address] [place] [address] PCP - General Internal Medicine 10/09/20 06/16/21 [facility], Pcp PCP - General Internal Medicine 06/17/21 documented as of this encounter
--- OUTSIDE RECORDS SUMMARY | 2024-05-31 13:32 | XMS_ITS | Encounter Summary ---
Author [facility] Address [address] [place] [address] Care Team Providers Care Paraeducator Name Role Phone Ayo Carpio MD Primary Care Provider [phone] Annalee Jones MD Primary Care Provider Un available Yolande Nicholas DO Primary Care Pro vider Unavailable Anuj Priest DO Primary Care Provider Judy [facility], Pcp Primary Care Provider Unavailabl e Reason for Visit * Reason Onset Date Comments hospital follow up 10/14/2016 Encounter Details Date Type Department Care Team Description 10/14/2016 Telephone Adult Medicine [address] [phone] Ayo Carpio MD [address] [place] [phone] hospital follow up Social History Tobacco Use Types Packs/Day Years [...] Telephone Encounter - Minerva Kan R.N. - 10/17/2016 1:46 PM EDT Pt to see 10/21 at 1:30 for [facility] [place] . * Telephone Encounter - Bertha Ernandez - 10/17/2016 1:41 PM EDT Pt returning call, pt has a bad phone, please call Patient today at this number [phone] * Telephone Encounter - Minerva Kan R.N. - 10/17/2016 11:08 AM EDT Due to heavy call volume unable to connect , will try pt later today * Telephone Encounter - Dalila Jennings - 10/17/2016 10:41 AM EDT Patient returning call about hosp fu appt * Telephone Encounter - Skylar Bowers R.N. - 10/14/2016 4:36 PM EDT Called patient back and left voice message to return call * Telephone Encounter - Minal Chauhan - 10/14/2016 3:41 PM EDT Hospital follow up appointment needed Hospital patient was treated at: [facility] Was this only an ER visit or was the patient admitted to the hospital? Admitted to hospital Date of visit if ER visit only: N/A If patient was admitted what was the date of discharge? 11-13-2016 Reason/diagnosis for visit or stay: cardiac When was the patient told to follow up? LASHAWN Was visit or stay related to an injury? NO If yes, what was the date of injury (DOI)? N/A If yes, was the injury due to N/A documented in this encounter Plan of Treatment Not on file documented as of this encounter Visit Diagnoses Not on filedocumented in this encounter Care Teams Paraeducator Relationship Specialty Start Date End Date Ayo Carpio MD [address] [place] [address] PCP - General Internal Medicine 07/19/16 01/05/17 Annalee Jones MD [address] [place] [address] PCP - General Internal Medicine 01/06/17 12/02/18 Yolande Nicholas DO [address] [place] [address] PCP - General Internal Medicine 12/03/18 10/08/20 Anuj Priest DO [address] [place] [address] PCP - General Internal Medicine 10/09/20 06/16/21 [facility], Jose G [address] [place] [address] PCP - General Internal Medicine 06/17/21 documented as of this encounter
--- OUTSIDE RECORDS SUMMARY | 2024-05-31 13:32 | XMS_ITS | Encounter Summary ---
Author Organization [employer] Address [address] [facility] 7t [place] [address] Care Team Providers Care Compensation Consultant Name Role Phone Sesar Pereyra MD Primary Care Provider [phone] Reason for Visit * Reason Onset Date Comments Med Refill 04/28/2024 Encounter Details Date Type Department Care Team ([facility] st Contact Info) Description 04/28/2024 Refill [facility] MED & PEDS [address] [place] [address] Sesar Pereyra MD [address] [place] [address] Social History Tobacco Use Types Packs/Day Years [...] Description 06/13/2024 1:00 PM EST Office Visit [facility] MED & PEDS [address] [place] [address] Sesar Pereyra MD [address] [place] [address] documented as of this encounter Visit Diagnoses Not on filedocumented in this encounter Additional Health Concerns Assessment Noted Time PHQ-9 Depression Total Score: 16 024 10:59 AM EDT documented as of this encounter Care Teams Compensation Consultant Relationship Specialty Start Date End Date Sesar Pereyra MD [address] [place] [address] PCP - General Internal Medicine 03/01/21 [facility] 03/22/24 documented as of this encounter
--- OUTSIDE RECORDS SUMMARY | 2024-05-31 13:32 | XMS_ITS | Encounter Summary ---
Author Organization [facility] Address [address] [place] [address] Care Team Providers Care Slotter Operator Helper Name Role Phone Ghassan Burciaga MD Primary Care Provider Unavail able Pierre Arevalo MD Primary Care Provider Judy vailable Gerson Dawson MD Primary Care Provider Unavail able [facility], Pcp Primary Care Provider Unavailabl e Coleman Mccarthy MD Primary Care Provider Unavaila Ayo Demarco MD Primary Care Provider [phone] Annalee Jones MD Primary Care Provider Un available Pascual Nicholasabela DO Primary Care Pro vider Unavailable Anuj Priest DO Primary Care Provider Judy vailable [facility], Pcp Primary Care Provider Unavailabl e Encounter Details Date Type Department Care Team Description 01/19/2007 Hospital Medical Records [address] [place] [address] Cathie Hopkins Social History Tobacco Use Types Packs/Day Years [...] on filedocumented in this encounter Care Teams Slotter Operator Helper Relationship Specialty Start Date End Date Ghassan Burciaga MD PCP - General 07/24/00 05/06/13 Pierre Arevalo MD PCP - General Internal Medicine 05/07/13 4 Gerson Dawson MD PCP - General Internal Medicine 01/30/14 03/20/14 [facility], Pcp PCP - General Internal Medicine 03/21/14 05/06/14 Coleman Mccarthy MD PCP - General Internal Medicine 05/07/14 07/18/16 Ayo Carpio MD [address] [place], [place] [id number] PCP - General Internal Medicine 07/19/16 01/05/17 Annalee Jones MD [address] [place], [place] [id number] PCP - General Internal Medicine 01/06/17 12/02/18 Yolande Nicholas DO [address] [place] [address] PCP - General Internal Medicine 12/03/18 10/08/20 Anuj Priest DO [address] [place] [address] PCP - General Internal Medicine 10/09/20 06/16/21 [facility], Pcp PCP - General Internal Medicine 06/17/21 documented as of this encounter
--- OUTSIDE RECORDS SUMMARY | 2024-05-31 13:32 | XMS_ITS | Encounter Summary ---
Author Organization [facility] Address [address] [place] [address] Care Team Providers Care Breeding Manager Name Role Phone Pierre Arevalo MD Primary Care Provider Judy vailable Gerson Dawson MD Primary Care Provider Unavail able [facility], Pcp Primary Care Provider Unavailabl Coleman Sampson MD Primary Care Provider Unavaila Ayo Demarco MD Primary Care Provider [phone] Annalee Jones MD Primary Care Provider Un available Yolande Nicholas DO Primary Care Pro vider Unavailable Anuj Priest DO Primary Care Provider Judy vailable [facility], Pcp Primary Care Provider Unavailabl e Encounter Details Date Type Department Care Team Description 10/18/2013 Refill Medicine/Pediatrics - [address] [phone] Madyson Vazquez PA-C Social History Tobacco Use Types Packs/Day Years Used Date Smoking Tobacco: Former Cigarettes 1 35 Q uit: 07/26/2005 Smokeless Tobacco: Never Alcohol Use Standard Drinks/Week Comments No 0 (1 standard drink = 0.6 oz pur e alcohol) prior heavy stopped 3. Sex Assigned at Date Recorded Not on file documented as of this encounter Miscellaneous Notes * Telephone Encounter - Raiza Monge L.P.N. - 10/18/2013 4:06 PM EDTFrom: Alex Nettles To: Madyson Vazquez PA-C Sent: 10/18/2013 3:55 PM EDT Subject: Medication Renewal Request Original authorizing provider: Madyson Vazquez PA-C Alex Marquez Tho would like a refill of the following medications: sildenafil (VIAGRA) 100 MG tablet [Madyson Vazquez PA-C] Preferred pharmacy: [facility], [place] [address] BREANN OLIVAS Comment: To дмитрий Meyer in . [place] 4pills 100mg documented in this encounter Plan of Treatment Not on file documented as of this encounter Visit Diagnoses Not on filedocumented in this encounter Care Teams Breeding Manager Relationship Specialty Start Date End Date Pierre Arevalo MD PCP - General Internal Medicine 05/07/13 4 Gerson Dawson MD PCP - General Internal Medicine 01/30/14 03/20/14 [facility], Pcp PCP - General Internal Medicine 03/21/14 05/06/14 Coleman Mccarthy MD PCP - General Internal Medicine 05/07/14 07/18/16 Ayo Carpio MD [address] [place], [place] [phone] PCP - General Internal Medicine 07/19/16 01/05/17 Annalee Jones MD [address] [place] [address] PCP - General Internal Medicine 01/06/17 12/02/18 Yolande Nicholas, DO [address] [place] [address] PCP - General Internal Medicine 12/03/18 10/08/20 Anuj Priest, DO [address] [place] [address] PCP - General Internal Medicine 10/09/20 06/16/21 [facility], Pcp PCP - General Internal Medicine 06/17/21 documented as of this encounter
--- OUTSIDE RECORDS SUMMARY | 2024-05-31 13:32 | XMS_ITS | Encounter Summary ---
Author Organization [facility] Address [address] [place] [address] Care Team Providers Care Mussel Farmer Name Role Phone Yolande Nicholas DO Primary Care Pro vider Unavailable Anuj Priest DO Primary Care Provider [facility], Pcp Primary Care Provider Unavailabl e Reason for Visit * Reason Onset Date Comments Faxed Order 01/03/2020 Encounter Details Date Type Department Care Team Description 01/03/2020 Telephone Adult [address] [address] Yolande Nicholas DO Faxed Order Social History [...] encounter Miscellaneous Notes * Telephone Encounter - Kathe Orourke - 01/10/2020 11:28 AM EDT Fax orders from Ngoc GALLEGOS, please sign and fax back. * Telephone Encounter - Fabi Orourke - 01/03/2020 2:00 PM EDT Ngoc Gallegos would like Dr. Yolande Gomez's signature for plan of care documented in this encounter Plan of Treatment Not on file documented as of this encounter Visit Diagnoses Not on filedocumented in this encounter Care Teams Mussel Farmer Relationship Specialty Start Date End Date Yolande Nicholas DO PCP - General Internal Medicine 12/03/18 10/08/20 Anuj Priest DO PCP - General Internal Medicine 10/09/[address] [place] [address], Pcp PCP - General Internal Medicine 06/17/21 documented as of this encounter
--- OUTSIDE RECORDS SUMMARY | 2024-05-31 13:32 | XMS_ITS | Encounter Summary ---
Author Organization [facility] Address [address] [place] [address] Care Team Providers Care Drapery Inspector Name Role Phone Yolande Nicholas DO Primary Care Pro vider Unavailable Anuj Priest DO Primary Care Provider [facility], Pcp Primary Care Provider Unavailabl e Reason for Visit * Reason Onset Date Comments Provider Call Back 11/08/2019 Encounter Details Date Type Department Care Team Description 11/08/2019 Telephone Adult Medicine [address] [address] Yolande Nicholas DO Provider Call Back Social History Tobacco Use Types Packs/Day Years [...] Telephone Encounter - Yolande Banegas DO - 11/08/2019 12:44 PM EDT I spoke to patient and his SO and informed of violation and of need to fu w/ behavioral health He also saw the vascular doc for his leg and testing is scheduled * Telephone Encounter - Blessing Pérez M.A. - 11/08/2019 10:[address] Kim Banegas, Decision is in the FYI. Please call them back. * Telephone Encounter - Dora Del Castillo - 11/08/2019 9:02 AM EDT Patients electronics technology instructor Ame , left a voicemail on patient services answering machine about their narcotic appeal decision. She would like a call back to know the outcome. Please give her a call and tellthem julian. Thank you. documented in this encounter Plan of Treatment Not on file documented as of this encounter Visit Diagnoses Not on filedocumented in this encounter Care Teams Drapery Inspector Relationship Specialty Start Date End Date Yolande Nicholas DO PCP - General Internal Medicine 12/03/18 10/08/20 Anuj Priest DO PCP - General Internal Medicine 10/09/20 2 [facility], Pcp PCP - General Internal Medicine 06/17/21 documented as of this encounter
--- OUTSIDE RECORDS SUMMARY | 2024-05-31 13:32 | XMS_ITS | Encounter Summary ---
Author Organization [facility] Address [address] [place] [address] Care Team Providers Care Bobbin Painter Name Role Phone Yolande Nicholas DO Primary Care Pro vider Unavailable Anuj Priest DO Primary Care Provider Judy Gardner, Pcp Primary Care Provider Unavailabl e Encounter Details Date Type Department Care Team Description 10/23/2019 Release of Information Medical Records [address] [place] [id number] Abstract, Provider Social History Tobacco Use Types [...] on filedocumented in this encounter Care Teams Bobbin Painter Relationship Specialty Start Date End Date Yolande Nicholas DO PCP - General Internal Medicine 12/03/18 10/08/20 Anuj Priest DO PCP - General Internal Medicine 10/09/20 2 Jj, Pcp PCP - General Internal Medicine 06/17/21 documented as of this encounter
--- OUTSIDE RECORDS SUMMARY | 2024-05-31 13:32 | XMS_ITS | Encounter Summary ---
Author Organization [facility] Address [address] [place] [address] Care Team Providers Care Band Maker Name Role Phone Annalee Jones MD Primary Care Provider Un available Yolande Nicholas DO Primary Care Pro vider Unavailable Anuj Priest DO Primary Care Provider Judy vailable [facility], Pcp Primary Care Provider Unavailabl e Encounter Details Date Type Department Care Team Description 08/24/2017 Release of Information Medical Records [address] [place] [id number] Abstract, Provider Social History Tobacco Use Types [...] on filedocumented in this encounter Care Teams Band Maker Relationship Specialty Start Date End Date Annalee Jones MD PCP - General Internal Medicine 01/06/17 9 Yolande Nicholas DO PCP - General Internal Medicine 12/03/18 10/08/20 Anuj Priest DO PCP - General Internal Medicine 10/09/20 2 Jj, Pcp PCP - General Internal Medicine 06/17/21 documented as of this encounter
--- OUTSIDE RECORDS SUMMARY | 2024-05-31 13:32 | XMS_ITS | Encounter Summary ---
Author Organization [employer] [facility] Address [address] [place] [address] Care Team Providers Care Scrap Collector Name Role Phone Ayo Carpio MD Primary Care Provider [phone] Annalee Jones MD Primary Care Provider Un available Yolande Nicholas DO Primary Care Pro vider Unavailable Anuj Priest DO Primary Care Provider Judy [facility], Pcp Primary Care Provider Unavailabl e Encounter Details Date Type Department Care Team Description 10/19/2016 Orders Only Adult Medicine [address] [id number] Ayo Carpio MD [address] [place] [address] [phone] Lung nodule (Primary Dx) Social History Tobacco Use Types [...] as of this encounter Visit Diagnoses Diagnosis Lung nodule- Primary Solitary pulmonary nodule documented in this encounter Care Teams Scrap Collector Relationship Specialty Start Date End Date Ayo Carpio MD [address] [place] [address] [phone] PCP - General Internal Medicine 07/19/16 01/05/17 Annalee Jones MD [address] [place] [address] PCP - General Internal Medicine 01/06/17 12/02/18 Yolande Nicholas, [address] [place] [address] PCP - General Internal Medicine 12/03/18 10/08/20 Anuj Priest DO [address] [place] [id number] PCP - General Internal Medicine 10/09/20 06/16/21 [facility], Pcp [address] [place] [address] PCP - General Internal Medicine 06/17/21 documented as of this encounter
--- OUTSIDE RECORDS SUMMARY | 2024-05-31 13:32 | XMS_ITS | Encounter Summary ---
Author Organization [employer] Address [address] [facility] 7t [place] [address] Care Team Providers Care Clinical Nutritionist Name Role Phone Sesar Pereyra MD Primary Care Provider [phone] Reason for Visit * Reason Onset Date Comments Med Refill 04/11/2024 Encounter Details Date Type Department Care Team (Late st Contact Info) Description 04/11/2024 Refill [facility] MEDICINE [address] [place] [address] Natasha Jiang MD [address] [place] [address] Closed nondisplaced fracture of acromial end of [...] Upcoming Encounters Date Type Department Care Team ([facility] st Contact Info) Description 06/13/2024 1:00 PM EST Office Visit [facility] CHC MED & PEDS [address] [place] [address] Sesar Pereyra MD [address] [place] [address] documented as of this encounter Visit Diagnoses Diagnosis Closed nondisplaced fracture of acromial end of right clavicle, initial encounter documented in this encounter Additional Health Concerns Assessment Noted Time PHQ-9 Depression Total Score: 16 024 10:59 AM EDT documented as of this encounter Care Teams Clinical Nutritionist Relationship Specialty Start Date End Date Sesar Pereyra MD [address] [place] [address] PCP - General Internal Medicine [facility]01[facility]21 [facility] documented as of this encounter
--- OUTSIDE RECORDS SUMMARY | 2024-05-31 13:32 | XMS_ITS | Encounter Summary ---
Author Organization [facility] Address [address] [place] [address] Care Team Providers Care Cash Van Salesperson Name Role Phone Yolande Nicholas DO Primary Care Pro vider Unavailable Anuj Priest DO Primary Care Provider [facility], Pcp [facility] Encounter Details Date Type Department Care Team Description 01/22/2020 Pt. Non Urgent Medic al Question Adult Medicine [address] [address] Yolande Nicholas DO Social History Tobacco Use [...] Progress Notes * Yolande Banegas DO - 01/23/2020 5:46 PM EDT I'm aware of these messages and his recent vascular procedures and complications documented in this encounter Miscellaneous Notes * Telephone Encounter - Ammy Peña M.A. - 01/22/2020 2:02 PM EDTFrom: Alex Nettles To: Yolande Banegas DO Sent: 01/22/2020 12:11 PM EDT Subject: Update: Alex Nettles [address] Muniz, I am messaging you to touch base regarding Alex' current medical condition. I am told that as his PCP you receive all his doctors/surgeons notes pertaining to what they have done, what is currently being done and what they are planning to do in the [facility]. At this point we have followed all your previous orders regarding who to see and when. Regarding meeting Arun's Behavioral Health Needs, we are working with Luda He APRN at [facility] in [place], [place] P: [phone] Therefore, from all the doctor's reports you have receive I imagine you are up to date on Arun's condition at this time. Please confir m that as Alex' PCP, you are fully aware of his current medical status. I am working to ensure that all bases are covered and that all medical persons involved are on the same page. 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 As Alex' Advocate it is my responsibility to ensure that he is receiving the mos t effective andappropriate care and services. Sincerely, Ame Cordero M.Ed. Health and Wellness Advocate documented in this encounter Plan of Treatment Not on file documented as of this encounter Visit Diagnoses Not on filedocumented in this encounter Care Teams Cash Van Salesperson Relationship Specialty Start Date End Date Yolande Nicholas DO PCP - General Internal Medicine 12/03/18 10/08/20 Anuj Priest DO PCP - General Internal Medicine 10/09/[address] [place] [address], Pcp PCP - General Internal Medicine 06/17/21 documented as of this encounter
--- OUTSIDE RECORDS SUMMARY | 2024-05-31 13:32 | XMS_ITS | Encounter Summary ---
Author Organization [facility] Address [address] [place] [address] Care Team Providers Care Loss Claim Clerk Name Role Phone Anuj Priest DO Primary Care Provider Judy vailable [facility], Pcp Primary Care Provider Unavailabl e Encounter Details Date Type Department Care Team Description 06/10/2021 Telephone Adult Medicine [facility] [address] [place] [address] Anuj Priest DO Social History Tobacco Use Types Packs/Day [...] on filedocumented in this encounter Care Teams Loss Claim Clerk Relationship Specialty Start Date End Date Anuj Priest DO PCP - General Internal Medicine 10/09/20 2 [facility], Pcp PCP - General Internal Medicine 06/17/21 documented as of this encounter
--- OUTSIDE RECORDS SUMMARY | 2024-05-31 13:32 | XMS_ITS | Encounter Summary ---
Author Organization [facility] [facility] [facility] Address [address] [place] [address] Care Team Providers Care Residential Treatment Staff Name Role Phone Ghassan Burciaga MD Primary Care Provider Unavail able Pierre Arevalo MD Primary Care Provider Judy vailable Gerson Dawson MD Primary Care Provider Unavail able [facility], Pcp Primary Care Provider Unavailabl e Coleman Mccarthy MD Primary Care Provider Unavaila Ayo Demarco MD Primary Care Provider [phone] Annalee Jones MD Primary Care Provider Un available Pascual Nicholasabela DO Primary Care Pro vider Unavailable Anuj Priest DO Primary Care Provider Judy vailable [facility], Pcp Primary Care Provider Unavailabl e Encounter Details Date Type Department Care Team Description 02/02/2009 Hospital Medical Records [address] [place] [address] Bacilio Ward MD Social History Tobacco Use Types Packs/Day [...] on filedocumented in this encounter Care Teams Residential Treatment Staff Relationship Specialty Start Date End Date Ghassan Burciaga MD PCP - General 07/24/00 05/06/13 Pierre Arevalo MD PCP - General Internal Medicine 05/07/13 4 Gerson Dawson MD PCP - General Internal Medicine 01/30/14 03/20/14 [facility], Pcp PCP - General Internal Medicine 03/21/14 05/06/14 Coleman Mccarthy MD PCP - General Internal Medicine 05/07/14 07/18/16 Ayo Carpio MD [address] [place], [place] [phone] PCP - General Internal Medicine 07/19/16 01/05/17 Annalee Jones MD [address] [place], [place] [phone] PCP - General Internal Medicine 01/06/17 12/02/18 Yolande Nicholas, DO [address] [place] [address] PCP - General Internal Medicine 12/03/18 10/08/20 Anuj Priest, [address] [place] [address] PCP - General Internal Medicine 10/09/20 06/16/21 [facility], Pcp PCP - General Internal Medicine 06/17/21 documented as of this encounter
--- OUTSIDE RECORDS SUMMARY | 2024-05-31 13:32 | XMS_ITS | Encounter Summary ---
Author Organization [employer] Address [address] [facility] 7t [place] [address] Care Team Providers Care Travel Registered Nurse Icu Name Role Phone Sesar Pereyra MD Primary Care Provider [phone] Reason for Visit * Reason Onset Date Comments Med Refill 04/02/2024 Encounter Details Date Type Department Care Team ([facility] st Contact Info) Description 04/02/2024 Telephone [facility] MEDICINE [address] [place] [address] Sesar Pereyra MD [address] [place] [address] Med Refill Social History Tobacco Use Types [...] 9:39 AM EST Medication was sent to [facility] on 04/01/24 #30 with 11 refills. * Telephone Encounter - Miri Young - 04/02/2024 9:33 AM EST TC from pt requesting medication refill. Medications needing refill : metoprolol tartrate (Lopressor) 25 MG tablet To be sent to: [facility] documented in this encounter Plan of Treatment Upcoming Encounters Date Type Department Care Team (Late st Contact Info) Description 06/13/2024 1:00 PM EST Office Visit [facility] MED & PEDS [address] [place] [address] Sesar Pereyra MD [address] [place] [address] documented as of this encounter Visit Diagnoses Not on filedocumented in this encounter Additional Health Concerns Assessment Noted Time PHQ-9 Depression Total Score: 16 024 10:59 AM EDT documented as of this encounter Care Teams Travel Registered Nurse Icu Relationship Specialty Start Date End Date Sesar Pereyra MD [address] [place] [address] PCP - General Internal Medicine 03/01/21 [facility] 03/22/24 documented as of this encounter
--- OUTSIDE RECORDS SUMMARY | 2024-05-31 13:33 | XMS_ITS | Encounter Summary ---
Author Organization [facility] Address [address] [place] [address] Care Team Providers Care Right Of Way Appraiser Name Role Phone Yolande Nicholas DO Primary Care Pro vider Unavailable Anuj Priest DO Primary Care Provider [facility], Pcp Primary Care [facility] Encounter Details Date Type Department Care Team Description 03/03/2020 Pt. Non Urgent Medic al Question Adult Medicine [address] [address] Yolande Nicholas DO Social History Tobacco Use [...] have Coronavirus / COVID-19? No / Unsure 02/24/2020 10:11 AM EDT documented as of this encounter Progress Notes * Yolande Banegas DO - 03/03/2020 1:35 PM EST This is A test of the vascular system and perfusion of lower extremities. I'd love copy of info sent to me. * Amym Peña M.A. - 03/03/2020 11:42 AM ESTFrom: Alex Nettles To: Yolande Banegas DO Sent: 03/03/2020 10:05 AM EST Subject: [address] Argueta * at 8:00 AM, Dr Argueta/Vascular Surgeon @ [facility] has ordered a US LOWER EXTREMITY ARTERIES (GRANT) PHSIO COMPLETE BILAT for Arun. *Please explain what this is. * 9:00 AM Office visit with Dr. Argueta. *Shall we instruct Dr. Argueta to send all reports to Dr. lAvarez? documented in this encounter Plan of Treatment Not on file documented as of this encounter Visit Diagnoses Not on filedocumented in this encounter Care Teams Right Of Way Appraiser Relationship Specialty Start Date End Date Yolande Nicholas DO PCP - General Internal Medicine 12/03/18 10/08/20 Anuj Priest DO PCP - General Internal Medicine 10/09/[address] [place] [address], Pcp PCP - General Internal Medicine 06/17/21 documented as of this encounter
--- OUTSIDE RECORDS SUMMARY | 2024-05-31 13:33 | XMS_ITS | Encounter Summary ---
Author Organization [employer] Address [address] [facility] 7t [place] [address] Care Team Providers Care Smt Operator Name Role Phone Sesar Pereyra MD Primary Care Provider [phone] Reason for Visit * Reason Comments Med Refill Encounter Details Date Type Department Care Team ([facility] st Contact Info) Description 10/30/2023 Refill [facility] CHC MED & PEDS [address] [place], [place] [phone] Sesar Pereyra MD [address] [place] [address] PVD (peripheral vascular disease) (CMS/HCC); Longstanding persistent [...] Upcoming Encounters Date Type Department Care Team ([facility] st Contact Info) Description 06/13/2024 1:00 PM EST Office Visit [facility] MED & PEDS [address] [place] [address] Sesar Pereyra MD [address] [place] [address] documented as of this encounter Visit Diagnoses Diagnosis PVD (peripheral vascular disease) (CMS/HCC) Unspecified peripheral vascular disease Longstanding persistent atrial fibrillation (CMS/HCC) documented in this encounter Additional Health Concerns Assessment Noted Time PHQ-9 Depression Total Score: 16 024 10:59 AM EDT documented as of this encounter Care Teams Smt Operator Relationship Specialty Start Date End Date Sesar Pereyra MD [address] [place] [address] PCP - General Internal Medicine [facility]01/21 [facility] documented as of this encounter
--- OUTSIDE RECORDS SUMMARY | 2024-05-31 13:33 | XMS_ITS | Clinical Summary ---
Author Organization [facility] Address [address] [place] [address] Care Team Providers Care Straightening Machine Feeder Name Role Phone Nuha Galvin PA-C Primary Care Provider [phone] Source Comments PLEASE NOTE, if this patient [...] Date Sleep disorder 02/02/2015 Overview (02/02/2015): Saw [place] [facility] and sleep on 01/15/2015: Dr. Johnson [...] once a year. In remission Seen at [facility] urology Depression with anxiety 04/01/2014 Overview (04/01/2014): Dr. Pradhan at [facility]. Is going to establish care at a new facility. PVD (peripheral vascular dis ease) with claudication ([facility]) 04/01/2014 Overview (07/04/2014): Fem-Fem done by Dr. Hensley in 2006. Sees this doctor once a year at [facility]. Follows up with this facility every 6 months. 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 4.[address] Herbert Pt [...] SAFETY NET MEDICARE - [place] Care Teams Straightening Machine Feeder Relationship Specialty Start Date End Date Nuha Galvin PA-C [address] [place] [address] PCP - General 03/21/18
--- OUTSIDE RECORDS SUMMARY | 2024-05-31 13:33 | XMS_ITS | Encounter Summary ---
Author Organization [facility] Address [address] [place] [address] Care Team Providers Care Rinkman Name Role Phone Yolande Nicholas DO Primary Care Pro vider Unavailable Anuj Priest DO Primary Care Provider [facility], Pcp Primary [facility] Encounter Details Date Type Department Care Team Description 03/13/2020 Pt. Non Urgent Medic al Question Adult Medicine [address] [address] Yolande Nicholas DO Social History Tobacco Use [...] encounter Miscellaneous Notes * Telephone Encounter - Marisa Soni M.A. - 03/16/2020 11:05 AM ESTFrom: Alex Nettles To: Yolande Banegas DO Sent: 03/13/2020 1:23 PM EST Subject: Yes or No Should Arun be on a Water Pill? Is Arun prescribed any water pills? [facility] is concerned with leg swelling. Told me to call you. Thank you, Chevy documented in this encounter Plan of Treatment Not on file documented as of this encounter Visit Diagnoses Not on filedocumented in this encounter Care Teams Rinkman Relationship Specialty Start Date End Date Yolande Nicholas DO PCP - General Internal Medicine 12/03/18 10/08/20 Anuj Priest DO PCP - General Internal Medicine 10/09/20 2 [facility], Pcp PCP - General Internal Medicine 06/17/21 documented as of this encounter
--- OUTSIDE RECORDS SUMMARY | 2024-05-31 13:33 | XMS_ITS | Clinical Summary ---
Author Organization [facility] Address [address] [place] [address] Care Team Providers Care Sheet Metal Shop Supervisor Name Role Phone [facility], Pcp Primary Care Provider Unavailabl e Allergies No known active allergies Medications Medication Sig Dispensed Refills Start Date End Date Status MULTIPLE VITAMINS OR TABS 1 QD 0 Active aspirin 81 MG EC tablet Take 1 Tab by mouth daily for 180 days. 30 Tab 5 02/08/2019 Active hydrOXYzine (ATARAX) 50 MG tablet Take 1 Tab by mouth 3 times daily as needed for Anxiety. 90 Tab 5 02/25/2020 Active lisinopril (PRINIVIL,ZESTRIL) 20 MG tablet Take 1 Tab by mouth daily. 30 Tab 3 03/31/2020 Active Melatonin 3 MG Tab Take 1 tablet by mouth at bedtime. 90 tablet 0 08/19/2020 Active furosemide (LASIX) 40 MG tablet Take 40 mg by mouth daily. 0 Active clonazepam (KLONOPIN) 1 MG tablet Take 1 mg by mouth 2 times daily as needed. 0 Active Eliquis 5 MG Tab TAKE 1 TABLET BY MOUTH 2 TIMES DAILY 60 tablet 5 01/08/2021 Active cilostazol (PLETAL) 50 MG tablet TAKE 1 TABLET BY MOUTH 2 TIMES DAILY 60 tablet 5 01/08/2021 Active V-R STOOL SOFTENER 100 MG capsule TAKE ONE CAPSULE BY MOUTH TWICE A DAY 20 capsule 1 02/26/2021 Active metoprolol (LOPRESSOR) 25 MG tablet Take 0.5 Tablets by mouth 2 times daily. 30 tablet 1 04/09/2021 Active atorvastatin (LIPITOR) 80 MG tablet Take 1 tablet by mouth at bedtime. 30 tablet 1 04/09/2021 Active Active Problems Problem Noted Date Infection of vascular bypass graft 02/24 PAD (peripheral artery disease) 02/25/20 20 Normocytic anemia 02/25/2020 H/O prolonged Q-T interval on ECG 2019 Memory disturbance 10/06/2019 Atrial fibrillation 09/24/2019 History of non-ST elevation myocardial i nfarction (NSTEMI) 09/24/2019 Alcohol abuse 05/19/2019 History of renal cell cancer 05/19/2019 Chronic kidney disease (CKD), stage III (moderate) 05/19/2019 Closed fracture of sacrum with delayed h ealing 08/27/2018 DDD (degenerative disc disease), lumbar 08/27/2018 Centrilobular emphysema 08/01/2017 Scarring of lung 08/01/2017 Atelectasis 08/01/2017 Chronic obstructive pulmonary disease Anxiety 07/06/2017 Lung nodule 10/19/2016 Overview: Get with nonspecific findings on CT scan 06/2016. Repeat CT scan should be considered HTN (hypertension) 11/23/2011 Pure hypercholesterolemia 07/24/2009 Thoracic aneurysm without mention of rup ture 03/11/2009 Overview: IMO update Renal Mass - Left, cancer 03/05/2007 Overview: Left partial nephrectomy - Dx Cancer Diverticulitis of colon (without mention of hemorrhage) 03/10/2006 Overview: Had colostomy for a time Atherosclerosis of [place] ar teries of the extremities with intermittent claudication 07/14/2005 Overview: Stent on right and fem- fem bypass on left IMO update Impotence of organic origin 07/14/2005 Other specified forms of hearing loss Depressive disorder, not elsewhere class ified 07/14/2005 Alcohol abuse, in remission 06/19/2005 Tobacco use disorder Resolved Problems Problem Noted Date Resolved Date Groin abscess 02/25/2020 04/17/2020 Alcohol withdrawal syndrome with complication 04/17/2020 Pulmonary nodules 08/01/2017 10/06/2019 Former heavy cigarette smoker (20-39 per day) 04/17/2020 Pain in joint, pelvic region and thigh 0 04/17/2020 Diverticulitis of small inte radha (without mention of hemorrhage) 07/14/2005 06/27/2006 Overview: IMO update Tobacco use disorder 06/19/2005 03/10/2006 Alcohol abuse, in remission 06/19/200510/2019 Pneumonia 11/22/2019 Immunizations Name Administration Dates Next Due Influenza (> 6 Months) 03/07/2011,02/02/2010 Influenza vaccine high dose age 65 and over 02/18/2020,01/12/2018,01/31/2017 Pneumoccoccal(Adult) Polysac charide PPSV23 02/19/2015,02/19/2015,04/15/2014,04/15,08/22/2012 Pneumococcal Conjugate PCV-13 01/12/2018 TETANUS/DIPTHERIA (ADULT) 08/01/2003 Tdap 06/24/2011 Family History Medical History Relation Name Comments Cancer, Other Brother 3 bone Alcohol and Other Drug Abuse Father PR Father Arthritis Mother hands Stroke Mother uti's Mother Alcohol and Other Drug Abuse Other cousin Relation Name Status Comments Brother 1 (Age 49) Cancer - b one Brother 2 Alive Diverticulitis Brother 3 Daughter Alive Healthy? Father (Age 49) PR x 3, ET [place] Maternal Grandfather (Age 74) Pn eumonia Maternal Grandmother Mother (Age 73) UTI, CVA Other Paternal Grandfather (Age 62) Paternal Grandmother (Age 91) [place] Sister Alive Breast cancer Social History Tobacco Use Types Packs/Day Years Used Date Smoking Tobacco: Former Cigarettes 1 35 Q uit: 07/26/2005 Smokeless Tobacco: Never Alcohol Use Standard Drinks/Week Comments Yes 0 (1 standard drink = 0.6 oz pure alcohol) 1 1/2 week ago. has now stopped Sex Assigned at Date Recorded Not on file Last Filed Vital Signs Vital Sign Reading Time Taken Comments Blood Pressure 120/78 10/16/2020 10:10 AM EDT Pulse 78 10/16/2020 10:10 AM EDT Temperature 36.9 ??C (98.4 ??F) 10/16/2020 10:10 AM E DT Respiratory Rate 14 10/16/2020 10:10 AM EDT Oxygen Saturation 97% 02/24/2020 10:41 AM EDT Inhaled Oxygen Concentration - - Weight 105.2 kg (232 lb) 10/16/2020 10:10 AM EDT Height 182.9 cm (6') 10/16/2020 10:10 AM EDT Body Mass Index 31.46 10/16/2020 10:10 AM EDT Plan of Treatment Health Maintenance Due Date Last Done Comments Covid-19 Vaccine (#1) 1945 SHINGLES VACCINE (2 of 3) 09/05/2014 07/11/2014 FALL RISK ASSESSMENT 10/05/2017 10/05/2016, 05/06/2013, 06/24/2011 DEPRESSION SCREEN 01/12/2019 01/12/2018, 06/24/2011 DIABETES/HEART DISEASE: JAMESON AJ CHOLESTEROL (LDL) 02/09/2020 02/08/2019, 01/12/2018, 08/10/2016, Additional history exists Lung Cancer Screening (Low D ose CT) 02/23/2020 02/22/2019, 07/31/2017, 08/18/2016, Additional history exists DTAP/TDAP/TD (2 - Td or Tdap) 06/24/2021 06/24/2011 COLON CANCER SCREENING 03/22/2022 7, 05/17/2006, 04/07/2000 INFLUENZA (#1) 2023 02/18/2020, 12/30, 01/31/2017, Additional history exists BMI CHECK/ADVISE 05/01/2024 10/16/2020, 05/2020, 06/01/2020, Additional history exists HEPATITIS C SCREENING Completed 05/06/2013 PNEUMOCOCCAL VACCINE Completed 01/12/2018, 02/19/2015, 02/19/2015, Additional history exists Care Teams Sheet Metal Shop Supervisor Relationship Specialty Start Date End Date [facility], Pcp PCP - General Internal Medicine 06/17/21
--- OUTSIDE RECORDS SUMMARY | 2024-05-31 13:33 | XMS_ITS | Clinical Summary ---
Author Organization [employer] Address [address] [facility] 7t [place] [address] Care Team Providers Care Air Conditioning Service Technician Name Role Phone Sesar Pereyra MD [...] 30 tablet 11 04/14/20 24 025 Active Eliquis 5 MG tabletIndicatio ns:Longstanding persistent [...] by mouth Once per day. 30 tablet 5 05/23/19 25 Active atorvastatin (Lipitor) 80 MG tabletIndicatio ns:Hypercholest erolemia Take 1 tablet (80 mg) by mouth Once per day. 28 tablet 11 05/23/19 25 Active amphetamine-dex troamphetamine (Adderall) 7.5 MG tablet Take 1 tablet (7.5 mg) by mouth Once per day. 28 tablet 05/27/19 25 Active Aspirin Low Dose 81 MG EC tabletIndicatio ns:Primary hypertension TAKE ONE TABLET BY MOUTH EVERY DAY 30 tablet 5 04/28/20 22 025 Discontinued(Re order (will not trigger notification to Pharmacy)) atorvastatin (Lipitor) 80 MG tabletIndicatio ns:Hypercholest erolemia TAKE ONE TABLET BY MOUTH EVERY DAY 28 tablet 11 06/14/19 24 025 Discontinued(Re order (will not trigger notification to Pharmacy)) amphetamine-dex troamphetamine (Adderall) 7.5 MG tablet Take 1 tablet (7.5 mg) by mouth Once per day. 28 tablet 04/26/20 24 025 Discontinued(Re order (will not trigger [...] considered Sleep disorder 02/02/2015 Overview (01/22/2024): Saw [facility] and sleep on 01/15/2015: Dr. Johnson Likely DILLAN sleep study ordered. Given that he has RLS, He may have periodic limb movement disorder which can be checked for in the study. Check ferritin. Will await sleep study. Depression with anxiety 04/01/2014 Overview (06/16/2022): Dr. Pradhan at [facility]. Is going to establish care at a new facility. Hypercholesteremia 04/01/2014 Alcohol abuse, episodic drinking behavior 2013 Degenerative joint disease (DJD) of hip 12/02/20 14 Overview (01/22/2024): Xray done in 2008 to confirm degenerative changes. Degenerative lumbar spinal stenosis 04/01/2014 Overview (01/22/2024): MRI done 07/15/2013 Impression: degenerative changes and spondylolistheses. Left L4 nerve root impingement cannot be excluded to neuroforaminal stenosis at L4-L5 Steroid injections given07/25/2013 Peripheral vascular disease 04/01/2014 Overview (01/22/2024): Fem-Fem done by Dr. Hensley in 2006. Sees this doctor once a year at [facility]. Follows up with this facility every 6 months. Pure hypercholesterolemia 07/24/2009 Thoracic aortic aneurysm (TAA) 03/11/2009 Overview (01/22/2024): IMO update Seen by [facility]. 4.[address] Herbert Pt [...] for a time Sony done 2006 at [facility] Impotence of organic origin 07/14/2005 Atherosclerosis of [place] m[place] of extremity with intermittent claudication 07/14/2005 Overview (01/22/2024): Stent on right and fem- fem bypass on left IMO update Depressive disorder 07/14/2005 Alcohol abuse, in remission 06/19/2005 Encounters Date Type Department Care Team Description 05/30/[address] [facility] [address] [place] [address] Sesar Pereyra MD Lab Orders; Referral 05/30/[address] [address] Sesar Pereyra MD 05/28/[address] [facility] [address] [place] [address] Sesar Pereyra MD fyi 05/27/[address] [facility] [address] [facility] [place] [address] Sesar Pereyra MD 05/23/[address] [facility] [address] [place] [address] Sesar Pereyra MD Medication Question 05/15/2024 Telephone [facility] [address] [place] [address] Sesar Pereyra MD 05/09/2024 Telephone [facility] [address] [place] [address] Verona Thompson, CLAUDIA 05/07/2024 9:15 AM EST Office Visit [facility] [address] [place] [address] Natasha Jiang MD Kidney stone (Primary Dx) 05/07/2024 Telephone [facility] [address] [place] [address] Natasha Jiang MD Medication Question 05/07/2024 Orders Only [facility] [address] [place] [address] Natasha Jiang MD 05/07/2024 Travel 05/06/2024 Telephone [facility] [address] [place] [address] Sesar Pereyra MD Nurse Triage 04/30/2024 Refill [facility] [address] [place] [address] Sesar Pereyra MD Longstanding persistent atrial fibrillation (CMS/HCC); PVD (peripheral vascular disease) (CMS/HCC) 04/29/2024 Orders Only [facility] [address] [place] [address] Sesar Pereyra MD Closed nondisplaced fracture of acromial end of right clavicle, initial encounter 04/29/2024 Telephone [facility] [address] [place] [address] Sesar Pereyra MD Nurse Triage 04/28/2024 Refill [facility] [address] [place] [address] Sesar Pereyra MD 04/26/[address] [facility] [address] [place] [address] Sesar Pereyra MD Closed nondisplaced fracture of acromial end of right clavicle, initial encounter 04/26/[address] [facility] [address] [place] [address] Sesar Pereyra MD Med Refill 04/18/2024 Refill [facility] [address] [place] [address] Loyda Jacobson, CLAUDIA Essential hypertension; Closed nondisplaced fracture of acromial end of right clavicle, initial encounter 04/18/[address] [address] Sesar Pereyra MD Med Refill 04/11/2024 Refill [facility] [address] [place] [address] Sesar Pereyra MD 04/11/[address] [address] Natasha Jiang MD Closed nondisplaced fracture of acromial end of right clavicle, initial encounter 04/11/2024 Travel 04/10/[address] [address] Sesar Pereyra MD Closed nondisplaced fracture of acromial end of right clavicle, initial encounter 04/10/[address] [address] Sesar Pereyra MD Med Refill 04/03/2024 3:00 PM EST Office Visit [facility] [address] [place] [address] Lauren Vogel MD Cellulitis of left lower extremity (Primary Dx) 04/03/[address] [address] Sesar Pereyra MD Nurse Triage 04/02/[address] [address] Sesar Pereyra MD callback number; Medication Question 04/02/[address] [address] Sesar Pereyra MD Closed nondisplaced fracture of acromial end of right clavicle, initial encounter 04/02/[address] [address] Sesar Pereyra MD Med Refill 04/02/2024 Orders Only [place] [facility] [address] [place] [address] ProviderJazmyn MD 04/01/2024 Orders Only [facility] [address] [place] [address] Sesar Pereyra MD Essential hypertension (Primary Dx) 03/27/2024 9:15 AM EST Office Visit [facility] [address] [place] [address] Sesar Pereyra MD Acute kidney injury (CMS/HCC) (Primary Dx); Closed nondisplaced fracture of acromial end of right clavicle, initial encounter; Longstanding persistent atrial fibrillation (CMS/HCC); Dizziness; Bradycardia 03/27/2024 Telephone [facility] [address] [place] [address] Analilia Mart, CLAUDIA Plan of care 03/27/2024 Travel 03/25/2024 Telephone [facility] [address] [place] [address] Sesar Pereyra MD Chart Prep 03/22/[address] [address] Sesar Pereyra MD Nurse Triage 03/15/2024 Telephone [facility] [address] [place] [address] Sesar Pereyra MD ER Follow-up 03/15/2024 Travel 03/14/2024 Orders Only GENERIC EXTERNAL DATA DEPARTMENT Provider, Generic External Data 03/13/2024 9:00 AM EST Office Visit [facility] [address] [place] [address] Sesar Pereyra MD Essential hypertension (Primary Dx); Longstanding persistent atrial fibrillation (CMS/HCC) 03/13/2024 Travel 03/12/2024 Orders Only GENERIC EXTERNAL DATA DEPARTMENT Provider, Generic External Data 03/12/[address] [facility] [address] [place] [address] Sesar Pereyra MD Chart Prep 03/07/2024 Travel [...] 06/13/2024 1:00 PM EST Office Visit [facility] [address] [place] [address] Sesar Pereyra MD [address] [place] [address] Health Maintenance Due Date Last Done Comments [...] 06/24/2011, 08/01/2003, Additional history exists Pneumococcal Vaccine: 50+ Years Completed 12/18/2019, 01/12/2018, 02/19/2015, Additional history [...] EST Narrative 05/07/2024 10:48 AM EST ? [facility] ?[address] ?[place] [address] ?XRay Report ? Signed ? Patient: Prawismaelki,Alex ?MR#: [id number] ?? [id number] ? : 1945 ?Acct:[id number] ? Age/Sex: 79 / M ?ADM Date: /07/25 ? Loc: HO.XRAY ? Attending Dr: Natasha Jiang MD ? Ordering Physician: Natasha Jiang MD ?? Date of Service: 05/07/24 ?? Procedure(s): XR KUB ?? Accession Number(s): [id number] ? cc: Sesar Pereyra MD; Natasha Jiang [...] DD/ 1021 ? TD/TT: 05/07/24 1040 ? Director Professional Services: ? Procedure Note Hernandez, Image - 05/07/[address] [address] XRay Report Signed Patient: Ronald Nettles#: [id number] : 1945cct:[id number] Age/Sex: 79 / MADM Date: 05/07/24 Loc: BEBETO Attending Dr: Natasha Jiang MD Ordering Physician: Natasha Jiang MD Date of Service: 05/07/24 Procedure(s): XR KUB Accession Number(s): [id number] cc: Sesar Pereyra MD; Natasha Jiang MD [...] Kalin Quezada MD 05/07/2024 10:45 AM EST Dictated By: Kalin Cox MD Signed By: <Electronically signed by Kalin Donald MDin OV> 05/07/24 1045 DD/ 1021 TD/TT: 05/07/24 1040 Director Professional Services: Natasha Jiang MD IMG XR PROCEDURES Edited [...] Media Lot # [id number] Lot# Expiration Date Urine 05/07/2024 9:33 AM EST Natasha Jiang MD POINT OF CARE TEST ENTER/EDIT OR DERABLES Final Result * ECG 12 lead (04/01/2024 4:18 PM EST) Only the most recent of2 resultswithin the time period is included. Narrative Sesar Pereyra MD - 04/01/2024 4:18 PM EST Heart rate 48 bpm. ??Sinus rhythm. ??Enterprise: 0 degrees. ??No sign of left atrial enlargement or right atrial enlargement. ??No sign of hypertrophy. ?? T wave inversion in aVL and aVF us Sesar Pereyra MD ECG ORDERABLES Final Resul t * (ABNORMAL) Basic Metabolic Panel (03/27/2024 11:00 AM EST) Sodium 141 135 - 145 mmol/L [facility] Potassium 4.8 3.3 - 5.1 mmol/L [facility] Comment:Slight Hemolysis.Int erpret result with caution. Chloride 109(H) 96 - 108 mmol/L [facility] Carbon Dioxide 21(L) 22 - 29 mmol/L [facility] Anion Gap 16 12 - 20 [facility] Urea Nitrogen (BUN) 21(H) 9 - 16 mg/dL [facility] Creatinine, Serum 1.25 0.5 - 1.4 mg/dL [facility] Estimated Glomerular Filt Rate 56 [facility] Comment:Chronic Kidney Disea se: Estimated GFR < 60 mL/min/1.77d5Rceddi Kidney Disease: Estimated GFR < 15 mL/min/1.73m2 Glucose 83 60 - 115 mg/dL [facility] Calcium 9.4 8.4 - 10.2 mg/dL [facility] Blood Venous blood specimen / Unknown 03/27/2024 11:00 AM EST 03/27/2024 2:18 PM EST Sesar Pereyra MD LAB BLOOD ORDERABLES Final Result [facility] [address] [place] [phone] * (ABNORMAL) Comprehensive Metabolic Panel (03/14/2024 8:33 AM EST) Sodium 143 135 - 145 mmol/L [facility] Potassium 4.2 3.3 - 5.1 mmol/L [facility] Chloride 108 96 - 108 mmol/L [facility] Carbon Dioxide 27 22 - 29 mmol/L [facility] Anion Gap 12 12 - 20 [facility] Urea Nitrogen (BUN) 16 9 - 16 mg/dL [facility] Creatinine, Serum 1.53(H) 0.5 - 1.4 mg/dL [facility] Creatinine Clr Calc Pharmacy 52.0 [facility] Comment:eGFR (calculated fro m the MDRD study equation) and eCrCl(calculated from the Cockcroft-Gault equation) are based ondifferent parameters and may not yield comparable results.If eCrCl result is absurd, please check patient'sheight/weight. Estimated Glomerular Filt Rate 44 [facility] Comment:Chronic Kidney Disea se: Estimated GFR < 60 mL/min/1.55o2Ocjzsn Kidney Disease: Estimated GFR < 15 mL/min/1.73m2 Glucose 92 60 - 115 mg/dL [facility] Calcium 9.1 8.4 - 10.2 mg/dL [facility] Bilirubin, Total 0.5 0.0 - 1.0 mg/dL [facility] Aspartate Amino Transferase 23 5 - 37 U/L [facility] Alanine Aminotransferase 19 0 - 40 U/L [facility] Total Protein 6.5 6.5 - 8.0 g/dL [facility] Albumin Level 3.8 3.5 - 5.0 g/dL [facility] Alkaline Phosphatase 102 39 - 117 U/L [facility] 03/14/2024 8:33 AM EST 03/14/2024 8:39 AM EST us Generic External Data Provider LAB BLOOD ORDERAB LES Final Result [facility] [address] [place] [address] [phone] * XR Chest 1 View (03/12/2024 9:51 PM EST) Anatomical Region Laterality Modality Chest Radiographic Homa ging 03/12/2024 9:51 PM EST Narrative 03/12/2024 11:02 PM EST ? [facility] ?[address] ?[place] [address] ?XRay Report ? Signed ? Patient: Tho,Alex ?MR#: [id number] ?? [id number] ? : 1945 ?Acct:[id number] ? Age/Sex: 79 / M ?ADM Date: 11/12/24 ? Loc: HO.ED ? Attending Dr: ? Ordering Physician: Vincent Short MD ?? Date of Service: 03/12/24 ?? Procedure(s): XR chest 1V ?? Accession Number(s): [id number] ? cc: Sesar Pereyra MD; Vincent Short [...] signed by Quentin Truong MD in OV> ?03/12/24 019 ? DD/ 50 ? TD/TT: 03/12/242216 ? Director Professional Services: BA ? Procedure Note Alonzo Ng - 03/12/2024 [place] [address] XRay Report Signed Patient: Ronald Nettles#: [id number] : 1945cct:[id number] Age/Sex: 79 / MADM Date: 03/12/24 Loc: HO.ED Attending Dr: Ordering Physician: Vincent Short MD Date of Service: 03/12/24 Procedure(s): XR chest 1V Accession Number(s): [id number] cc: Sesar Pereyra MD; Vincent Short MD [...] in OV> 03/12/242258 DD/ 50 TD/TT: 03/12/242216 Director Professional Services: [facility] External Provider IMG XR PROCEDURES Edited Result - Final * (ABNORMAL) Urinalysis, Complete, with Reflex to Culture (03/12/2024 9:50 PM EST) Color Urine Yellow [facility] Appearance Urine Clear [facility] PH 6.5 5.0 - 9.0 [facility] Glucose Urine UA Negative Negative mg/dL [facility] Urine Blood Negative Negative [facility] Specific [place] - Urine <=1.005 1.005 - 1.025 [facility] Urine Protein 100 (2+)(A) Neg-Trace mg/dL [facility] Urine Ketones Negative Negative mg/dL [facility] Nitrite Urine Negative Negative [facility] Leukocyte Esterase Urine Negative Negative [facility] RBC Urine 0-2 0 - 2 /HPF [facility] Urine WBC 0-5 0 - 5 /HPF [facility] Urine Squamous Epithelial Cell 0-2 0 - 2 /HPF [facility] Urine Bacteria None Seen None Seen [facility] Hyaline Casts, Urine 0-2 0 - 2 /LPF [facility] 03/12/2024 9:50 PM EST 03/12/2024 9:54 PM EST Narrative [facility] - 03/12/2024 10:09 PM EST Urine, Clean Catch Generic External Data Provider LAB URINE ORDERAB LES Final Result [facility] [address] [place] [address] [phone] * Hepatitis C Ab (07/19/2023 11:42 AM EDT) Pathologist [facility] Hepatitis C Antibody Nonreactive Nonreactive [facility] Comment:Antibodies to HCV no t detected; does not exclude early acuteHCV infection. Blood Venous blood specimen / Unknown 07/19/2023 11:42 AM EDT 07/19/2023 2:25 PM EDT us Sesar Pereyra MD LAB BLOOD ORDERABLES Final Result [facility] [address] [place] [address] [phone] * (ABNORMAL) LIPID PANEL, STANDARD (03/05/2021 9:16 AM EDT) [facility] Chol/HDLC Ratio 4.1 <5.0 (calc) [facility] [...] ?? Ulisses MCDANIEL et al. MANDEEP. 2013;310(19): 9622-0650 ?? (http://education.Aigou.com/faq/ABV037) Non-HDL Cholesterol 104 <130 mg/dL (calc) [facility] [...] Pereyra MD LAB BLOOD ORDERABLES Final Result [facility] [address] from Last 3 Months or Most Recently Relevant to Health Maintenance Insurance [employer] MEDICARE REPLACEMENT [facility] FULL Care Teams Air Conditioning Service Technician Relationship Specialty Start Date End Date Sesar Pereyra MD [address] [place] [address] PCP - General Internal Medicine 03/01/21 [facility] 03/22/24
--- OUTSIDE RECORDS SUMMARY | 2024-05-31 13:33 | XMS_ITS | Encounter Summary ---
Author Organization [facility] Address [address] [place] [address] Care Team Providers Care Marine Steam Fitter Helper Name Role Phone Yolande Nicholas DO Primary Care Pro vider Unavailable Anuj Priest DO Primary Care Provider [facility], Pcp Primary [facility] Encounter Details Date Type Department Care Team Description 03/18/2020 Orders Only Adult Medicine [address] [address] Yolande Nicholas DO Social History Tobacco Use [...] on filedocumented in this encounter Care Teams Marine Steam Fitter Helper Relationship Specialty Start Date End Date Yolande Nicholas DO PCP - General Internal Medicine 12/03/18 10/08/20 Anuj Priest DO PCP - General Internal Medicine 10/09/20 2 2 [facility], Pcp PCP - General Internal Medicine 06/17/21 documented as of this encounter
--- OUTSIDE RECORDS SUMMARY | 2024-05-31 13:33 | XMS_ITS | Encounter Summary ---
Author Organization [employer] Address [address] [facility] 7[address] [place] [address] Care Team Providers Care Injection Molding Machine Offbearer Name Role Phone Sesar Pereyra MD Primary Care Provider [phone]- [phone] Reason for Visit * Reason Comments Med Refill Encounter Details Date Type Department Care Team ([facility] st Contact Info) Description 08/29/2023 Refill [facility] [address] [place] [address] Sesar Pereyra MD [address] [place] [address] Social History Tobacco Use Types Packs/Day Years [...] [facility] [address] [place] [address] Sesar Pereyra MD [address] [place] [address] documented as of this encounter Visit Diagnoses Not on filedocumented in this encounter Additional Health Concerns Assessment Noted Time PHQ-9 Depression Total Score: 16 024 10:59 AM EDT documented as of this encounter Care Teams Injection Molding Machine Offbearer Relationship Specialty Start Date End Date Sesar Pereyra MD [address] [place] [address] PCP - General Internal Medicine 03/01/21 [facility] 03/22/24 documented as of this encounter
--- OUTSIDE RECORDS SUMMARY | 2024-05-31 13:33 | XMS_ITS | Encounter Summary ---
Author Organization [facility] Address [address] [place] [address] Care Team Providers Care Veterinarian Assistant Name Role Phone Annalee Jones MD Primary Care Provider Un available Yolande Nicholas DO Primary Care Pro vider Unavailable Anuj Priest DO Primary Care Provider [facility], Pcp Primary Care Provider Unavailabl e Reason for Visit * Reason Onset Date Comments TEST RESULTS 08/24/2018 Encounter Details Date Type Department Care Team Description 08/24/2018 Telephone Adult Medicine [facility] [address] [place] [phone] Melva Salgado, [facility] [address] [place] [phone] TEST RESULTS Social History Tobacco Use Types Packs/Day Years Used Date Smoking Tobacco: Former Cigarettes 1 35 Q uit: 07/26/2005 Smokeless Tobacco: Never Alcohol Use Standard Drinks/Week Comments No 0 (1 standard drink = 0.6 oz pur e alcohol) prior heavy stopped 3. Sex Assigned at Date Recorded Not on file documented as of this encounter Miscellaneous Notes * Telephone Encounter - Ramiro Duckworth C.M.A. - 08/27/2018 11:50 AM EDT Please review and advise * Telephone Encounter - Maggiesatya Tovar - 08/24/2018 9:34 AM EDT Inform patient: ANY URGENT OR ABNORMAL RESULTS WIILL RESULT IN A CALL BACK TO THE PATIENT LASHAWN. Type of test: :MRI Date test was performed: 08/21/18 Where was the test performed: [facility] Who ordered this test?: Nery Salgado Is the doctor here today?: YES Can the message wait until the doctor returns?: NO IF PATIENT'S PCP IS NOT IN INSTRUCT PATIENT THAT THEY WILL RECEIVE A CALL BACK WHEN THE PCP IS IN THE OFFICE NEXT. documented in this encounter Plan of Treatment Not on file documented as of this encounter Visit Diagnoses Not on filedocumented in this encounter Care Teams Veterinarian Assistant Relationship Specialty Start Date End Date Annalee Jones MD PCP - General Internal Medicine 01/06/17 9 Yolande Nicholas DO PCP - General Internal Medicine 12/03/18 10/08/20 Anuj Priest DO PCP - General Internal Medicine 10/09/20 2 Jj Pcp PCP - General Internal Medicine 06/17/21 documented as of this encounter
--- OUTSIDE RECORDS SUMMARY | 2024-05-31 13:33 | XMS_ITS | Encounter Summary ---
Author Organization [employer] Address [address] [facility] 7t [place] [address] Care Team Providers Care Mathematical Scientist Name Role Phone Sesar Pereyra MD Primary Care Provider [phone]- [phone] Reason for Visit * Reason Onset Date Comments Referral 01/02/2024 Encounter Details Date Type Department Care Team ([facility] st Contact Info) Description 01/02/2024 Telephone [facility] MED[facility] [address] [place] [address] Sesar Pereyra MD [address] [place] [address] Referral Social History Tobacco Use Types Packs/Day [...] - 01/02/2024 10:48 AM EDT Tc from [facility] the patients [facility] requesting a referral for a gerontologist and would like to be sent to at [facility] [place] documented in this encounter Plan of Treatment Upcoming Encounters Date Type Department Care Team (Late st Contact Info) Description 06/13/2024 1:00 PM EST Office Visit [facility] [address] [place] [address] Sesar Pereyra MD [address] [place] [address] documented as of this encounter Visit Diagnoses Not on filedocumented in this encounter Additional Health Concerns Assessment Noted Time PHQ-9 Depression Total Score: 16 024 10:59 AM EDT documented as of this encounter Care Teams Mathematical Scientist Relationship Specialty Start Date End Date Sesar Pereyra MD [address] [place] [address] PCP - General Internal Medicine 03/01/21 [facility] 03/22/24 documented as of this encounter
--- OUTSIDE RECORDS SUMMARY | 2024-05-31 13:33 | XMS_ITS | Encounter Summary ---
Author Organization [facility] Address [address] [place] [address] Care Team Providers Care Veterinary Milk Specialist Name Role Phone Annalee Jones MD Primary Care Provider Un available Yolande Nicholas DO Primary Care Pro vider Unavailable Anuj Priest DO Primary Care Provider Judy vailable Jj, Pcp Primary Care Provider Unavailabl e Encounter Details Date Type Department Care Team Description 08/01/2018 Transfer Records Medical Records [address] [place] [address] Abstract, Provider Social History Tobacco Use Types [...] on filedocumented in this encounter Care Teams Veterinary Milk Specialist Relationship Specialty Start Date End Date Annalee Jones MD PCP - General Internal Medicine 01/06/17 9 Yolande Nicholas DO PCP - General Internal Medicine 12/03/18 10/08/20 Anuj Priest DO PCP - General Internal Medicine 10/09/20 2 Jj, Pcp PCP - General Internal Medicine 06/17/21 documented as of this encounter
--- OUTSIDE RECORDS SUMMARY | 2024-05-31 13:33 | XMS_ITS | Encounter Summary ---
Author Organization [employer] Address 75 [facility] 7t [place] [address] Care Team Providers Care Rotary Surface Grinder Name Role Phone Sesar Pereyra MD Primary Care Provider +1- [phone] Reason for Visit * Reason Onset Date Comments Nurse Triage 11/20/2023 Encounter Details Date Type Department Care Team ([facility] st Contact Info) Description 11/20/2023 Telephone [facility] MED[facility]INE [address] [place] [address] Sesar Pereyra MD [address] [place] [address] Nurse Triage Social History Tobacco Use Types [...] Miscellaneous Notes * Telephone Encounter - Wing Marucs RN - 11/23/2023 10:05 AM EDT Tc to pt to follow-up for triage. Unable to reach pt, left message for pt to call back. Checked both [place] and [facility] records and no reports of recent [...] caller accepted this outcome Please contact at [phone] documented in this encounter Plan of Treatment Upcoming Encounters Date Type Department Care Team (Late st Contact Info) Description 06/13/2024 1:00 PM EST Office Visit [facility] MED & PEDS [address] [place] [address] Sesar Pereyra MD [address] [place] [address] documented as of this encounter Visit Diagnoses Not on filedocumented in this encounter Additional Health Concerns Assessment Noted Time PHQ-9 Depression Total Score: 16 024 10:59 AM EDT documented as of this encounter Care Teams Rotary Surface Grinder Relationship Specialty Start Date End Date Sesar Pereyra MD [address] [place] [address] PCP - General Internal Medicine 03/01/21 [facility] 03/22/24 documented as of this encounter
--- OUTSIDE RECORDS SUMMARY | 2024-05-31 13:33 | XMS_ITS | Encounter Summary ---
Author Organization [employer] Address 75 [facility] 7t [place] [address] Care Team Providers Care C.O.D. Clerk Name Role Phone Sesar Pereyra MD Primary Care Provider +1 [phone] Reason for Visit * Reason Onset Date Comments Medication Question 05/07/2024 Encounter Details Date Type Department Care Team ([facility] Contact Info) Description 05/07/2024 Telephone [facility] [address] [place] [address] Natasha Jiang MD [address] [place] [address] Medication Question Social History Tobacco Use Types [...] [facility] [address] [place] [address] Sesar Pereyra MD [address] [place] [address] documented as of this encounter Visit Diagnoses Not on filedocumented in this encounter Additional Health Concerns Assessment Noted Time PHQ-9 Depression Total Score: 16 07/18/ 024 10:59 AM EDT documented as of this encounter Care Teams C.O.D. Clerk Relationship Specialty Start Date End Date Sesar Pereyra MD [address] [place] [address] PCP - General Internal Medicine 03/01/21 [facility] 03/22/24 documented as of this encounter
--- OUTSIDE RECORDS SUMMARY | 2024-05-31 13:33 | XMS_ITS | Encounter Summary ---
Author Organization [employer] Address 75 [facility] 7t [place] [address] Care Team Providers Care Cycle Analyst Name Role Phone Sesar Pereyra MD Primary Care Provider +1 [phone] Encounter Details Date Type Department Care Team ([facility] st Contact Info) Description 05/07/2024 Orders Only [facility] CHC MED & PEDS [address] [place], [place] [phone] Natasha Jiang MD [address] [place] [address] Social History Tobacco Use Types Packs/Day Years [...] [facility] [address] [place] [address] Sesar Pereyra MD [address] [place] [address] documented as of this encounter Visit Diagnoses Not on filedocumented in this encounter Additional Health Concerns Assessment Noted Time PHQ-9 Depression Total Score: 16 024 10:59 AM EDT documented as of this encounter Care Teams Cycle Analyst Relationship Specialty Start Date End Date Sesar Pereyra MD [address] [place] [address] PCP - General Internal Medicine 03/01/21 [facility] 03/[facility]/24 documented as of this encounter
--- OUTSIDE RECORDS SUMMARY | 2024-05-31 13:33 | XMS_ITS | Encounter Summary ---
Author Organization [employer] Address [address] [facility] [place] [address] Care Team Providers Care Soft Shoe Dancer Name Role Phone Sesar Pereyra MD Primary Care Provider +1- [phone] Reason for Referral * Consultation (Routine) - Closed Specialty Diagnoses / Procedures Referred By Contac t Referred To Contact Geriatric Medicine Diagnoses Memory disturbance Sesar Pereyra MD [address] [place] [address] Phone: tel: fax: [facility] [address] [place] [address] Phone: tel: fax: Referral ID Status Reason Start Date Expiration Date V isits Requested Visits Authorized [id number] Closed Specialty Services Required 01/11/2024 01/10/2025 1 1 Encounter Details Date Type Department Care Team (Late st Contact Info) Description 01/11/2024 Orders Only [facility] CHC MED & PEDS [address] [place], [place] [phone] Sesar Pereyra MD [address] [place], [place] [phone] Memory disturbance (Primary Dx) Social History Tobacco [...] Description 06/13/2024 1:00 PM EST Office Visit [facility] MED & PEDS [address] [place] [address] Sesar Pereyra MD [address] [place] [address] Scheduled Referrals Name Type Priority Associated Diagnoses Orde r Schedule Referral to Geriatrics Outpatient Referral Routine Memory disturbance Expected: 01/11/2024 (Approximate), Expires: 01/10/2025 documented as of this encounter Visit Diagnoses Diagnosis Memory disturbance- Primary Memory loss documented in this encounter Additional Health Concerns Assessment Noted Time PHQ-9 Depression Total Score: 16 024 10:59 AM EDT documented as of this encounter Care Teams Soft Shoe Dancer Relationship Specialty Start Date End Date Sesar Pereyra MD [address] [place] [address] PCP - General Internal Medicine 03/01/21 [facility] 03/22/24 documented as of this encounter
--- OUTSIDE RECORDS SUMMARY | 2024-05-31 13:33 | XMS_ITS | Encounter Summary ---
Author Organization [employer] Address 75 [facility] 7t [place] [address] Care Team Providers Care Estate Attorney Name Role Phone Sesar Pereyra MD Primary Care Provider +1- [phone] Encounter Details Date Type Department Care Team ([facility] st Contact Info) Description 11/01/2023 Orders Only [facility] CHC MED & PEDS [address] [place], [place] [phone] Sesar Pereyra MD [address] [place] [address] Social History Tobacco Use Types Packs/Day Years [...] [facility] MED & PEDS [address] [place] [address] Sesar Pereyra MD [address] [place] [address] documented as of this encounter Visit Diagnoses Not on filedocumented in this encounter Additional Health Concerns Assessment Noted Time PHQ-9 Depression Total Score: 16 024 10:59 AM EDT documented as of this encounter Care Teams Estate Attorney Relationship Specialty Start Date End Date Sesar Pereyra MD [address] [place] [address] PCP - General Internal Medicine 03/01[facility] documented as of this encounter
--- OUTSIDE RECORDS SUMMARY | 2024-05-31 13:33 | XMS_ITS | Encounter Summary ---
Author Organization [facility] Address [address] [place] [address] Care Team Providers Care Informatics Spec Name Role Phone Yolande Nicholas DO Primary Care Pro vider Unavailable Anuj Priest DO Primary Care Provider [facility], Pcp Primary Care Provider Unavailabl e Reason for Visit * Reason Onset Date Comments VNA Call 03/03/2020 [facility] Encounter Details Date Type Department Care Team Description 03/03/2020 Telephone Adult Medicine [facility] [address] [place] [address] Yolande Nicholas DO VNA Call ([place] [facility]) Social History Tobacco Use Types Packs/Day Years [...] encounter Miscellaneous Notes * Telephone Encounter - Bijal Wilde - 03/03/2020 9:43 AM EST VNA CALL Which VNA office is calling? [facility] Full name of caller: Leesa The caller is Speech therapist Is the caller at the patients home?: NO Reason for call: ELIDIA pt has refused therapy, he will be getting discharged. No call needed she willsend the order. Does caller need an urgent call back? NO Was CONTACT Telephone # obtained above?: NO Fax #: documented in this encounter Plan of Treatment Not on file documented as of this encounter Visit Diagnoses Not on filedocumented in this encounter Care Teams Informatics Spec Relationship Specialty Start Date End Date Yolande Nicholas DO PCP - General Internal Medicine 12/03/18 10/08/20 Anuj Priest DO PCP - General Internal Medicine 10/09/[address] [place] [address], Pcp PCP - General Internal Medicine 06/17/21 documented as of this encounter
--- OUTSIDE RECORDS SUMMARY | 2024-05-31 13:33 | XMS_ITS | Encounter Summary ---
Author Organization [employer] Address 75 [facility] 7t [place] [address] Care Team Providers Care Line Palletizer Name Role Phone Sesar Pereyra MD Primary Care Provider +1- [phone] Encounter Details Date Type Department Care Team ([facility] st Contact Info) Description 05/15/2024 Telephone [facility] CHC MED & PEDS [address] [place], [place] [phone] Sesar Pereyra MD [address] [place] [address] Social History Tobacco Use Types Packs/Day Years [...] list. If any questions contact Adilia at [phone] documented in this encounter Plan of Treatment Upcoming Encounters Date Type Department Care Team (Late st Contact Info) Description 06/13/2024 1:00 PM EST Office Visit [facility] MED & PEDS [address] [place] [address] Sesar Pereyra MD [address] [place] [address] documented as of this encounter Visit Diagnoses Not on filedocumented in this encounter Additional Health Concerns Assessment Noted Time PHQ-9 Depression Total Score: 16 024 10:59 AM EDT documented as of this encounter Care Teams Line Palletizer Relationship Specialty Start Date End Date Sesar Pereyra MD [address] [place] [address] PCP - General Internal Medicine 03/01/21 [facility] 03/22/24 documented as of this encounter
--- OUTSIDE RECORDS SUMMARY | 2024-05-31 13:33 | XMS_ITS | Encounter Summary ---
Author Organization [facility] Address [address] [place] [address] Care Team Providers Care Service Aide Name Role Phone Annalee Jones MD Primary Care Provider Un available Yolande Nicholas DO Primary Care Pro vider Unavailable Anuj Priest DO Primary Care Provider Judy [facility], Pcp Primary Care Provider Unavailabl e Reason for Visit * Reason Onset Date Comments Veterinary Manager Feedback 08/27/2018 ortho Encounter Details Date Type Department Care Team Description 08/27/2018 Telephone Adult Medicine [address] [address] [facility] [address] [place] [address] Veterinary Manager Feedback (ortho) Social History Tobacco Use Types Packs/Day Years Used Date Smoking Tobacco: Former Cigarettes 1 35 Q uit: 07/26/2005 Smokeless Tobacco: Never Alcohol Use Standard Drinks/Week Comments No 0 (1 standard drink = 0.6 oz pur e alcohol) prior heavy stopped 3. Sex Assigned at Date Recorded Not on file documented as of this encounter Miscellaneous Notes * Telephone Encounter - Shana Junadi - 08/27/2018 2:18 PM EDT ELIDIA Haley, Patient is scheduled tomorrow 08/28/18 at [address] Mcguire for sacrum fracture. Patient is awareand he will bring a disc of the MRI [facility] Chief Order Dispatcher [facility] Department documented in this encounter Plan of Treatment Not on file documented as of this encounter Visit Diagnoses Not on filedocumented in this encounter Care Teams Service Aide Relationship Specialty Start Date End Date Annalee Jones MD PCP - General Internal Medicine 01/06/17 9 Yolande Nicholas DO PCP - General Internal Medicine 12/03/18 10/08/20 Anuj Priest DO PCP - General Internal Medicine 10/09/20 2 [facility], Pcp PCP - General Internal Medicine 06/17/21 documented as of this encounter
--- OUTSIDE RECORDS SUMMARY | 2024-05-31 13:33 | XMS_ITS | Encounter Summary ---
Author Organization [employer] Address 75 [facility] 7t [place] [address] Care Team Providers Care Air Brakes Inspector Name Role Phone Sesar Pereyra MD Primary Care Provider +1- [phone] Reason for Visit * Reason Onset Date Comments Results 06/06/2023 Encounter Details Date Type Department Care Team ([facility] st Contact Info) Description 06/06/2023 Telephone [facility] MEDICINE [address] [place] [address] Sesar Pereyra MD [address] [place] [address] Results Social History Tobacco Use Types Packs/Day [...] when done: 06/01/23-06/02/23 pt unsure [facility] documented in this encounter Plan of Treatment Upcoming Encounters Date Type Department Care Team (Late st Contact Info) Description 06/13/2024 1:00 PM EST Office Visit [facility] MED & PEDS [address] [place] [address] Sesar Pereyra MD [address] [place] [address] documented as of this encounter Visit Diagnoses Not on filedocumented in this encounter Care Teams Air Brakes Inspector Relationship Specialty Start Date End Date Sesar Pereyra MD [address] [place] [address] PCP - General Internal Medicine 03/01/21 [facility] 03/22/24 documented as of this encounter
--- OUTSIDE RECORDS SUMMARY | 2024-05-31 13:33 | XMS_ITS | Encounter Summary ---
Author Organization [facility] Address [address] [place] [address] Care Team Providers Care Treasury Director Name Role Phone Annalee Jones MD Primary Care Provider Un available Yolande Nicholas DO Primary Care Pro vider Unavailable Anuj Priest DO Primary Care Provider Judy [facility], Pcp Primary Care Provider Unavailabl e Encounter Details Date Type Department Care Team Description 06/13/2018 Refill Adult Medicine [address] [address] Annalee Jones MD Social History Tobacco Use Types Packs/Day Years Used Date Smoking Tobacco: Former Cigarettes 1 35 Q uit: 07/26/2005 Smokeless Tobacco: Never Alcohol Use Standard Drinks/Week Comments No 0 (1 standard drink = 0.6 oz pur e alcohol) prior heavy stopped 3. Sex Assigned at Date Recorded Not on file documented as of this encounter Miscellaneous Notes * Telephone Encounter - Blessing Pérez M.A. - 06/14/2018 7:04 AM EST I refused the rx asking for the medication. Pt sent an FYI to Dr Jones. * Telephone Encounter - Blessing Pérez M.A. - 06/14/2018 7:03 AM ESTFrom: Alex Nettles To: Annalee Jones MD Sent: 06/13/2018 4:58 PM EST Subject: Medication Renewal Request Original authorizing provider: MD Alex Arce would like a refill of the following medications: sildenafil (REVATIO) 20 MG tablet [Annalee Jones MD] Preferred pharmacy: [facility] [address] [place] AT Comment: you have nothing to do to refill my script for Sildenafil 20mg. Dr. Ryley Mcknight will take care of this script for me. He is the one that perscribed that i take 5 20mg to work for me so the order of 30ct. would right for me. He is the one that you made a appt for me to see and take care of this matter. Please feel free to answer me on this matter Alex Nettles 1945 documented in this encounter Plan of Treatment Not on file documented as of this encounter Visit Diagnoses Not on filedocumented in this encounter Care Teams Treasury Director Relationship Specialty Start Date End Date Annalee Jones MD PCP - General Internal Medicine 01/06/17 9 Yolande Nicholas DO PCP - General Internal Medicine 12/03/18 10/08/20 Anuj Priest DO PCP - General Internal Medicine 10/09/20 2 [facility], Pcp PCP - General Internal Medicine 06/17/21 documented as of this encounter
--- OUTSIDE RECORDS SUMMARY | 2024-05-31 13:33 | XMS_ITS | Encounter Summary ---
Author Organization [facility] Address [address] [place] [address] Care Team Providers Care Compressor Mechanic Name Role Phone Annalee Jones MD Primary Care Provider Un available Yolande Nicholas DO Primary Care Pro vider Unavailable Anuj Priest DO Primary Care Provider Judy vailable [facility], Pcp Primary Care Provider Unavailabl e Encounter Details Date Type Department Care Team Description 04/24/2018 Hospital Medical Records [address] [place] [address] Thomas Moise MD Social History Tobacco Use Types Packs/Day [...] on filedocumented in this encounter Care Teams Compressor Mechanic Relationship Specialty Start Date End Date Annalee Jones MD PCP - General Internal Medicine 01/06/17 9 Yolande Nicholas DO PCP - General Internal Medicine 12/03/18 10/08/20 Anuj Priest DO PCP - General Internal Medicine 10/09/20 2 [facility], Pcp PCP - General Internal Medicine 06/17/21 documented as of this encounter
--- OUTSIDE RECORDS SUMMARY | 2024-05-31 13:33 | XMS_ITS | Encounter Summary ---
Author Organization [facility] Address [address] [place] [address] Care Team Providers Care Manager Air Name Role Phone Yolande Nicholas DO Primary Care Pro vider Unavailable Anuj Priest DO Primary Care Provider [facility], Pcp Primary Care Provider Unavailabl e Reason for Visit * Reason Onset Date Comments VNA Call 02/25/2020 Encounter Details Date Type Department Care Team Description 02/25/2020 Telephone Adult Medicine [address] [address] Yolande Nicholas DO VNA Call Social History [...] encounter Miscellaneous Notes * Telephone Encounter - Maggie Allisonde - 02/25/2020 3:12 PM EDT VNA CALL Which VNA office is calling? [facility] Full name of caller: Leigh The caller is A Speech Therapist Is the caller at the patients home?: NO Reason for call: looking to see patient 2x's a week for 2 weeks, and then once a week for 2 weeks, focusing on memory and safety. Does caller need an urgent call back? NO Was CONTACT Telephone # obtained above?: YES Fax #: documented in this encounter Plan of Treatment Not on file documented as of this encounter Visit Diagnoses Not on filedocumented in this encounter Care Teams Manager Air Relationship Specialty Start Date End Date Yolande Nicholas DO PCP - General Internal Medicine 12/03/18 10/08/20 Anuj Priest DO PCP - General Internal Medicine 10/09/[address] [place] [address], Pcp PCP - General Internal Medicine 06/17/21 documented as of this encounter
--- OUTSIDE RECORDS SUMMARY | 2024-05-31 13:33 | XMS_ITS | Encounter Summary ---
Author Organization [employer] Address 75 [facility] 7t [place] [address] Care Team Providers Care Permanent Waver Name Role Phone Sesar Pereyra MD Primary Care Provider +1 [phone] Encounter Details Date Type Department Care Team (Late st Contact Info) Description 05/09/2024 Telephone [facility] CHC MED & PEDS [address] [place], [place] [phone] Verona Thompson RN Social History Tobacco Use [...] 1:57 PM EST Pt called to notify [facility] that he is going to start getting his medications that come in a bubble pack from [facility] ([phone]). TC to [facility] and spoke with pharm staff. They requested an active medication list and prescriptions for all medications that are going to be put in bubble pack. Please fax: [phone] attn: Art TC to [facility] to get scripts transferred to [facility]. [facility] pharm staff stated that Ana LuevanoampUrvashi Engel need to call [facility] directly to get scripts transferred. Notified Dre. documented in this encounter Plan of Treatment Upcoming Encounters Date Type Department Care Team (Late st Contact Info) Description 06/13/2024 1:00 PM EST Office Visit [facility] MED & PEDS [address] [place] [address] Sesar Pereyra MD [address] [place] [address] documented as of this encounter Visit Diagnoses Not on filedocumented in this encounter Additional Health Concerns Assessment Noted Time PHQ-9 Depression Total Score: 16 024 10:59 AM EDT documented as of this encounter Care Teams Permanent Waver Relationship Specialty Start Date End Date Sesar Pereyra MD [address] [place] [address] PCP - General Internal Medicine 03/01/21 [facility] 03/22/24 documented as of this encounter
--- OUTSIDE RECORDS SUMMARY | 2024-05-31 13:33 | XMS_ITS | Encounter Summary ---
Author Organization [facility] Address [address] [place] [address] Care Team Providers Care Drill Press Set Up Operator Radial Name Role Phone Yolande Nicholas DO Primary Care Pro vider Unavailable Anuj Priest DO Primary Care Provider [facility], Pcp Primary Care Provider Unavailabl e Reason for Visit * Reason Onset Date Comments Faxed Order 03/08/2020 Encounter Details Date Type Department Care Team Description 03/08/2020 Telephone Adult Medicine [address] [address] Yolande Nicholas DO Faxed Order Social History [...] encounter Miscellaneous Notes * Telephone Encounter - Sabina Rosa - 03/09/2020 10:19 AM EST Faxed order received from [facility]. Please review, sign, date, and fax back to [phone] * Telephone Encounter - Gerri Parra - 03/08/2020 2:16 PM EST [facility] IS FAXING ORDERS TO BE SIGN AND FAX BACK TO [phone]. documented in this encounter Plan of Treatment Not on file documented as of this encounter Visit Diagnoses Not on filedocumented in this encounter Care Teams Drill Press Set Up Operator Radial Relationship Specialty Start Date End Date Yolande Nicholas DO PCP - General Internal Medicine 12/03/18 10/08/20 Anuj Priest DO PCP - General Internal Medicine 10/09/[address] [place] [address], Pcp PCP - General Internal Medicine 06/17/21 documented as of this encounter
--- OUTSIDE RECORDS SUMMARY | 2024-05-31 13:34 | XMS_ITS | Encounter Summary ---
Author Organization [employer] Address [address] [facility] 7t [place] [address] Care Team Providers Care Science Interpreter Name Role Phone Sesar Pereyra MD Primary Care Provider +1- [phone] Reason for Visit * Reason Onset Date Comments Lab Orders 05/04/2022 Encounter Details Date Type Department Care Team ([facility] st Contact Info) Description 05/04/2022 Telephone [facility] MEDICINE [address] [place] [address] Sesar Pereyra MD [address] [place] [address] Lab Orders Social History Tobacco Use Types [...] pt requesting status n lab referral to [facility] Please contact pt at [phone] * Telephone Encounter - Jacquelyn Abel - 05/04/2022 8:11 AM EST Tc from pt requesting a status update on lab orders. Please contact at [phone] documented in this encounter Plan of Treatment Upcoming Encounters Date Type Department Care Team (Late st Contact Info) Description 06/13/2024 1:00 PM EST Office Visit [facility] CHC MED & PEDS [address] [place] [address] Sesar Pereyra MD [address] [place] [address] Scheduled Orders Name Type Priority Associated Diagnoses Orde r Schedule Basic Metabolic Panel Lab Routine Essential hypertension Expected: 05/05/2022 (Approximate), Expires: 05/05/2023 documented as of this encounter Visit Diagnoses Diagnosis Essential hypertension- Primary Unspecified essential hypertension documented in this encounter Care Teams Science Interpreter Relationship Specialty Start Date End Date Sesar Pereyra MD [address] [place] [address] PCP - General Internal Medicine 03/01/21 [facility] 03/22/24 documented as of this encounter
--- OUTSIDE RECORDS SUMMARY | 2024-05-31 13:34 | XMS_ITS | Encounter Summary ---
Author Organization [employer] Address [address] [facility] [place] [address] Care Team Providers Care Time Stamp Assembler Name Role Phone Sesar Pereyra MD Primary Care Provider +1- [phone] Encounter Details Date Type Department Care Team ([facility] Contact Info) Description 10/13/2022 Orders Only [facility] MED & PEDS [address] [place] [address] Sesar Pereyra MD [address] [place] [address] Social History Tobacco Use Types Packs/Day Years [...] Description 06/13/2024 1:00 PM EST Office Visit [facility] MED & PEDS [address] [place], [place] [phone] Sesar Pereyra MD [address] [place] [address] documented as of this encounter Visit Diagnoses Not on filedocumented in this encounter Care Teams Time Stamp Assembler Relationship Specialty Start Date End Date Sesar Pereyra MD [address] [place] [address] PCP - General Internal Medicine 03/01/[address] [facility] 03/22/24 documented as of this encounter
--- OUTSIDE RECORDS SUMMARY | 2024-05-31 13:34 | XMS_ITS | Encounter Summary ---
Author Organization [facility] Address [address] [place] [address] Care Team Providers Care Telepathist Name Role Phone Yolande Nicholas DO Primary Care Pro vider Unavailable Anuj Priest DO Primary Care Provider [facility], Pcp Primary Care Provider Unavailabl e Reason for Visit * Reason Onset Date Comments Faxed Order 03/29/2020 Encounter Details Date Type Department Care Team Description 03/29/2020 Telephone Adult [address] [address] Yolande Nicholas DO Faxed Order Social History [...] encounter Miscellaneous Notes * Telephone Encounter - Gerri Parra - 03/29/2020 2:13 PM EST JARROD XAVIER IS FAXING ORDERS TO BE SIGN AND FAX BACK TO [phone]. documented in this encounter Plan of Treatment Not on file documented as of this encounter Visit Diagnoses Not on filedocumented in this encounter Care Teams Telepathist Relationship Specialty Start Date End Date Yolande Nicholas DO PCP - General Internal Medicine 12/03/18 10/08/20 Anuj Priest DO PCP - General Internal Medicine 10/09/20 2 [facility], Pcp PCP - General Internal Medicine 06/17/21 documented as of this encounter
--- OUTSIDE RECORDS SUMMARY | 2024-05-31 13:34 | XMS_ITS | Encounter Summary ---
Author Organization [facility] Address [address] [place] [address] Care Team Providers Care Dba Name Role Phone Yolande Nicholas DO Primary Care Pro vider Unavailable Anuj Priest DO Primary Care Provider [facility], Pcp [facility] Encounter Details Date Type Department Care Team Description 04/04/2020 Pt. Non Urgent Medic al Question Adult Medicine [address] [address] Yolande Nicholas DO Social History Tobacco Use [...] Telephone Encounter - Ammy Peña M.A. - 04/06/2020 10:58 AM ESTFrom: Alex Nettles To: Yolande Banegas DO Sent: 04/04/2020 12:08 PM EST Subject: erictile disfuction [id number] 30ct. documented in this encounter Plan of Treatment Not on file documented as of this encounter Visit Diagnoses Not on filedocumented in this encounter Care Teams Dba Relationship Specialty Start Date End Date Yolande Nicholas DO PCP - General Internal Medicine 12/03/18 10/08/20 Anuj Priest DO PCP - General Internal Medicine 10/09/20 2 [facility], Pcp PCP - General Internal Medicine 06/17/21 documented as of this encounter
--- OUTSIDE RECORDS SUMMARY | 2024-05-31 13:34 | XMS_ITS | Encounter Summary ---
Author Organization [employer] [facility] Address [address] [place] [address] Care Team Providers Care Maintenance Services Dispatcher Name Role Phone Ghassan Burciaga MD Primary Care Provider Unavail able Pierre Arevalo MD Primary Care Provider Judy vailable Gerson Dawson MD Primary Care Provider Unavail able [facility], Pcp Primary Care Provider Unavailabl e Coleman Mccarthy MD Primary Care Provider Unavaila Ayo Demarco MD Primary Care Provider [phone] Annalee Jones MD Primary Care Provider Un available Pascual Nicholasabela DO Primary Care Pro vider Unavailable Anuj Priest DO Primary Care Provider Judy vailable [facility], Pcp Primary Care Provider Unavailabl e Encounter Details Date Type Department Care Team Description 09/17/2010 Skip Operator Report Medical Records [address] [place] [address] Jayshree Meade Social History Tobacco Use Types Packs/Day Years Used Date Smoking Tobacco: Former Cigarettes 1 35 Q uit: 07/26/2005 Alcohol Use Standard Drinks/Week Comments No 0 (1 standard drink = 0.6 oz pur e alcohol) prior heavy stopped Sex Assigned at Date Recorded Not on file documented as of this encounter Plan of Treatment Not on file documented as of this encounter Visit Diagnoses Not on filedocumented in this encounter Care Teams Maintenance Services Dispatcher Relationship Specialty Start Date End Date Ghassan Burciaga MD PCP - General 07/24/00 05/06/13 Pierre Arevalo MD PCP - General Internal Medicine 05/07/13 4 Gerson Dawson MD PCP - General Internal Medicine 01/30/14 03/20/14 [facility], Pcp PCP - General Internal Medicine 03/21/14 05/06/14 Coleman Mccarthy MD PCP - General Internal Medicine 05/07/14 07/18/16 Ayo Carpio MD [address] [place] [address] PCP - General Internal Medicine 07/19/16 01/05/17 Annalee Jones MD [address] [place] [address] PCP - General Internal Medicine 01/06/17 12/02/18 Yolande Nicholas DO [address] [place] [address] PCP - General Internal Medicine 12/03/18 10/08/20 Anuj Priest DO [address] [place] [address] PCP - General Internal Medicine 10/09/20 06/16/21 [facility], Pcp PCP - General Internal Medicine 06/17/21 documented as of this encounter
--- OUTSIDE RECORDS SUMMARY | 2024-05-31 13:34 | XMS_ITS | Encounter Summary ---
Author Organization [employer] Address 75 [facility] 7t [place] [address] Care Team Providers Care Nurse Auditor Name Role Phone Sesar Pereyra MD Primary Care Provider [phone] Reason for Visit * Reason Onset Date Comments Medication Question 05/23/2024 Encounter Details Date Type Department Care Team ([facility] st Contact Info) Description 05/23/2024 Telephone [facility] MEDICINE [address] [place] [address] Sesar Pereyra MD [address] [place] [address] Medication Question Social History Tobacco Use Types [...] any questions you can contact L&C at [phone]. documented in this encounter Plan of Treatment Upcoming Encounters Date Type Department Care Team ([facility] st Contact Info) Description 06/13/2024 1:00 PM EST Office Visit [facility] MED & PEDS [address] [place] [address] Sesar Pereyra MD [address] [place] [address] documented as of this encounter Visit Diagnoses Diagnosis Primary hypertension Unspecified essential hypertension Hypercholesterolemia Pure hypercholesterolemia documented in this encounter Additional Health Concerns Assessment Noted Time PHQ-9 Depression Total Score: 16 024 10:59 AM EDT documented as of this encounter Care Teams Nurse Auditor Relationship Specialty Start Date End Date Sesar Pereyra MD [address] [place] [address] PCP - General Internal Medicine 03/01/21 [facility] 03/22/24 documented as of this encounter
--- OUTSIDE RECORDS SUMMARY | 2024-05-31 13:34 | XMS_ITS | Encounter Summary ---
Author Organization [employer] Address 75 [facility] 7t [place] [address] Care Team Providers Care Histology Aide Name Role Phone Sesar Pereyra MD Primary Care Provider [phone]- [phone] Reason for Visit * Reason Onset Date Comments Lab Orders 05/30/2024 Referral 05/30/2024 Encounter Details Date Type Department Care Team (Late st Contact Info) Description 05/30/2024 Telephone [facility] MEDICINE [address] [place] [address] Sesar Pereyra MD [address] [place] [address] Lab Orders; Referral Social History Tobacco Use Types Packs/Day [...] Miscellaneous Notes * Telephone Encounter - Thanh Bearyes - 05/30/2024 4:03 PM EST Tc from pt requesting a call back in regards to MRI scheduled in the past and would like to reschedule and get a referral. documented in this encounter Plan of Treatment Upcoming Encounters Date Type Department Care Team (Late st Contact Info) Description 06/13/2024 1:00 PM EST Office Visit [facility] MED & PEDS [address] [place] [address] Sesar Pereyra MD [address] [place] [address] documented as of this encounter Visit Diagnoses Not on filedocumented in this encounter Additional Health Concerns Assessment Noted Time PHQ-9 Depression Total Score: 16 024 10:59 AM EDT documented as of this encounter Care Teams Histology Aide Relationship Specialty Start Date End Date Sesar Pereyra MD [address] [place] [address] PCP - General Internal Medicine 03/01/21 [facility] 03/22/24 documented as of this encounter
--- OUTSIDE RECORDS SUMMARY | 2024-05-31 13:34 | XMS_ITS | Encounter Summary ---
Author Organization [employer] Address 75 [facility] 7t [place] [address] Care Team Providers Care Financial Services Representative Name Role Phone Sesar Pereyra MD Primary Care Provider [phone]- [phone] Reason for Visit * Reason Onset Date Comments Med Refill 05/27/2024 Encounter Details Date Type Department Care Team ([facility] st Contact Info) Description 05/27/2024 Refill [facility] MED & PEDS [address] [place] [address] Sesar Pereyra MD [address] [place] [address] Social History Tobacco Use Types Packs/Day Years [...] encounter Miscellaneous Notes * Telephone Encounter - Shilpa Godoy - 05/27/2024 1:10 PM EST TC from pt requesting medication refill. Medications needing refill. clonazePAM (KlonoPIN) 0.5 MG tablet amphetamine-dextroamphetamine (Adderall) 7.5 MG tablet To be sent to: [facility] - [place], [place] - [address] [place] [address] STEET documented in this encounter Plan of Treatment Upcoming Encounters Date Type Department Care Team (Late st Contact Info) Description 06/13/2024 1:00 PM EST Office Visit [facility] MED & PEDS [address] [place] [address] Sesar Pereyra MD [address] [place] [address] documented as of this encounter Visit Diagnoses Not on filedocumented in this encounter Additional Health Concerns Assessment Noted Time PHQ-9 Depression Total Score: 16 024 10:59 AM EDT documented as of this encounter Care Teams Financial Services Representative Relationship Specialty Start Date End Date Sesar Pereyra MD [address] [place] [address] PCP - General Internal Medicine 03/01/21 [facility] 03/22/24 documented as of this encounter
--- OUTSIDE RECORDS SUMMARY | 2024-05-31 13:34 | XMS_ITS | Encounter Summary ---
Author Organization [employer] [facility] Address [address] [place] [address] Care Team Providers Care Safety Technician Name Role Phone Yolande Nicholas DO Primary Care Pro vider Unavailable Anuj Priest DO Primary Care Provider Judy Gardner, Pcp Primary Care Provider Unavailabl e Encounter Details Date Type Department Care Team Description 03/14/2019 Release of Information Medical Records [address] [place] [address] Abstract, Provider Social History Tobacco Use Types [...] on filedocumented in this encounter Care Teams Safety Technician Relationship Specialty Start Date End Date Yolande Nicholas DO PCP - General Internal Medicine 12/03/18 10/08/20 Anuj Priest DO PCP - General Internal Medicine 10/09/20 2 [facility], Pcp PCP - General Internal Medicine 06/17/21 documented as of this encounter
--- OUTSIDE RECORDS SUMMARY | 2024-05-31 13:34 | XMS_ITS | Encounter Summary ---
Author Organization [employer] Address 75 [facility] 7t [place] [address] Care Team Providers Care Glass Robot Operator Name Role Phone Sesar Pereyra MD Primary Care Provider [phone]- [phone] Reason for Visit * Reason Comments Med Refill Encounter Details Date Type Department Care Team ([facility] Contact Info) Description 06/10/2022 Refill [facility] MED & PEDS [address] [place] [address] Sesar Pereyra MD [address] [place] [address] Primary insomnia Social History Tobacco Use Types [...] Upcoming Encounters Date Type Department Care Team ([facility] Contact Info) Description 06/13/2024 1:00 PM EST Office Visit [facility] MED & PEDS [address] [place], [place] [phone] Sesar Pereyra MD [address] [place] [address] documented as of this encounter Visit Diagnoses Diagnosis Primary insomnia Persistent disorder of initiating or maintaining sleep documented in this encounter Care Teams Glass Robot Operator Relationship Specialty Start Date End Date Sesar Pereyra MD [address] [place] [address] PCP - General Internal Medicine 03/01/21 [facility] 03/22/24 documented as of this encounter
--- OUTSIDE RECORDS SUMMARY | 2024-05-31 13:34 | XMS_ITS | Encounter Summary ---
Author Organization [employer] [facility] Address [address] [place] [address] Care Team Providers Care Hadoop Infrastructure Architect Name Role Phone Ghassan Burciaga MD Primary Care Provider Unavail able Pierre Arevalo MD Primary Care Provider Judy vailable Gerson Dawson MD Primary Care Provider Unavail able [facility], Pcp Primary Care Provider Unavailabl e Coleman Mccarthy MD Primary Care Provider Unavaila Ayo Demarco MD Primary Care Provider [phone] Annalee Jnoes MD Primary Care Provider Un available Pascual Nicholasabela DO Primary Care Pro vider Unavailable Anuj Priest DO Primary Care Provider Judy vailable [facility], Pcp Primary Care Provider Unavailabl e Encounter Details Date Type Department Care Team Description 12/18/2009 Release of Information Medical Records [address] [place] [address] Abstract, Provider Social History Tobacco Use Types Packs/Day Years Used Date Smoking Tobacco: Former Cigarettes 1 35 Q uit: 07/26/2005 Alcohol Use Standard Drinks/Week Comments No 0 (1 standard drink = 0.6 oz pur e alcohol) prior heavy stopped . Sex Assigned at Date Recorded Not on file documented as of this encounter Plan of Treatment Not on file documented as of this encounter Visit Diagnoses Not on filedocumented in this encounter Care Teams Hadoop Infrastructure Architect Relationship Specialty Start Date End Date Ghassan Burciaga MD PCP - General 07/24/00 05/06/13 Pierre Arevalo MD PCP - General Internal Medicine 05/07/13 4 Gerson Dawson MD PCP - General Internal Medicine 01/30/14 03/20/14 [facility], Pcp PCP - General Internal Medicine 03/21/14 05/06/14 Coleman Mccarthy MD PCP - General Internal Medicine 05/07/14 07/18/16 Ayo Carpio MD [address] [place] [address] PCP - General Internal Medicine 07/19/16 01/05/17 Annalee Jones MD [address] [place] [address] PCP - General Internal Medicine 01/06/17 12/02/18 Yolande Nicholas, [address] [place] [address] PCP - General Internal Medicine 12/03/18 10/08/20 Anuj Priest DO [address] [place] [address] PCP - General Internal Medicine 10/09/20 06/16/21 [facility], Pcp PCP - General Internal Medicine 06/17/21 documented as of this encounter
--- OUTSIDE RECORDS SUMMARY | 2024-05-31 13:34 | XMS_ITS | Encounter Summary ---
Author Organization [employer] Address [address] [facility] 7t [place] [address] Care Team Providers Care Pilot Safety Inspector Name Role Phone Sesar Pereyra MD Primary Care Provider [phone]- [phone] Reason for Visit * Reason Onset Date Comments Med Refill 04/18/2024 Encounter Details Date Type Department Care Team ([facility] st Contact Info) Description 04/18/[address] [facility] MEDICINE [address] [place] [address] Sesar Pereyra MD [address] [place] [address] Med Refill Social History Tobacco Use Types [...] needing refill : To be sent to: [facility] - [place], [place] - [address] [place] [address] STEET documented in this encounter Plan of Treatment Upcoming Encounters Date Type Department Care Team (Late st Contact Info) Description 06/13/2024 1:00 PM EST Office Visit [facility] MED & PEDS [address] [place] [address] Sesar Pereyra MD [address] [place] [address] documented as of this encounter Visit Diagnoses Not on filedocumented in this encounter Additional Health Concerns Assessment Noted Time PHQ-9 Depression Total Score: 16 024 10:59 AM EDT documented as of this encounter Care Teams Pilot Safety Inspector Relationship Specialty Start Date End Date Sesar Pereyra MD [address] [place] [address] PCP - General Internal Medicine 11/1/21 [facility] 03/22/24 documented as of this encounter
--- OUTSIDE RECORDS SUMMARY | 2024-05-31 13:34 | XMS_ITS | Encounter Summary ---
Author Organization [employer] Address 75 [facility] 7t [place] [address] Care Team Providers Care Rpg Developer Name Role Phone Sesar Pereyra MD Primary Care Provider [phone]- [phone] Reason for Visit * Reason Comments Med Refill Encounter Details Date Type Department Care Team ([facility] Contact Info) Description 10/26/2022 Refill [facility] MED & PEDS [address] [place] [address] Sesar Pereyra MD [address] [place] [address] Social History Tobacco Use Types Packs/Day Years [...] [facility] [address] [place] [address] Sesar Pereyra MD [address] [place] [address] documented as of this encounter Visit Diagnoses Not on filedocumented in this encounter Care Teams Rpg Developer Relationship Specialty Start Date End Date Sesar Pereyra MD [address] [place] [address] PCP - General Internal Medicine 03/01/21 [facility] 03/22/24 documented as of this encounter
--- OUTSIDE RECORDS SUMMARY | 2024-05-31 13:34 | XMS_ITS | Encounter Summary ---
Author Organization [employer] Address [address] [facility] 7t [place] [address] Care Team Providers Care Intelligence Applications Name Role Phone Sesar Pereyra MD Primary Care Provider [phone]- [phone] Reason for Visit * Reason Onset Date Comments FYI 10/07/2022 Encounter Details Date Type Department Care Team ([facility] st Contact Info) Description 10/07/2022 Telephone [facility] MEDICINE [address] [place] [address] Sesar Pereyra MD [address] [place] [address] FYI Social History Tobacco Use Types Packs/Day [...] any questions or concerns please contact at [phone] documented in this encounter Plan of Treatment Upcoming Encounters Date Type Department Care Team ([facility] st Contact Info) Description 06/13/2024 1:00 PM EST Office Visit [facility] MED & PEDS [address] [place] [address] Sesar Pereyra MD [address] [place], [place] [phone] documented as of this encounter Visit Diagnoses Not on filedocumented in this encounter Care Teams Intelligence Applications Relationship Specialty Start Date End Date Sesar Pereyra MD [address] [place] [address] PCP - General Internal Medicine 03/01/21 [facility] 03/22/24 documented as of this encounter
--- OUTSIDE RECORDS SUMMARY | 2024-05-31 13:34 | XMS_ITS | Encounter Summary ---
Author Organization [facility] Address [address] [place] [address] Care Team Providers Care Ticket Printer Name Role Phone Yolande Nicholas DO Primary Care Pro vider Unavailable Anuj Priest DO Primary Care Provider [facility], Pcp [facility] Encounter Details Date Type Department Care Team Description 05/20/2019 Release of Information Medical Records [address] [place] [address] Abstract, Provider Social History Tobacco Use Types Packs/Day Years Used Date Smoking Tobacco: Former Cigarettes 1 35 Q uit: 07/26/2005 Smokeless Tobacco: Never Alcohol Use Standard Drinks/Week Comments Yes 0 (1 standard drink = 0.6 oz pure alcohol) 1 1/2 week ago. has now stopped Sex Assigned at Date Recorded Not on file documented as of this encounter Nursing Notes * Lucy Riojas - 05/20/2019 4:19 PM EST AUTHORIZATION TO OBTAIN RECORDS MAILED TO [facility]. documented in this encounter Plan of Treatment Not on file documented as of this encounter Visit Diagnoses Not on filedocumented in this encounter Care Teams Ticket Printer Relationship Specialty Start Date End Date Yolande Nicholas DO PCP - General Internal Medicine 12/03/18 10/08/20 Anuj Priest DO PCP - General Internal Medicine 10/09/20 2 2 [facility], Pcp PCP - General Internal Medicine 06/17/21 documented as of this encounter
--- OUTSIDE RECORDS SUMMARY | 2024-05-31 13:34 | XMS_ITS | Encounter Summary ---
Author Organization [employer] Address [address] [facility] 7t [place] [address] Care Team Providers Care Durable Medical Equipment Technician Name Role Phone Sesar Pereyra MD Primary Care Provider [phone]- [phone] Reason for Visit * Reason Comments Med Refill Encounter Details Date Type Department Care Team ([facility] Contact Info) Description 10/19/2022 Refill [facility] MED & PEDS [address] [place] [address] Sesar Pereyra MD [address] [place] [address] Social History Tobacco Use Types Packs/Day Years [...] 1:00 PM EST Office Visit [facility] MED & PEDS [address] [place] [address] Sesar Pereyra MD [address] [place] [address] documented as of this encounter Visit Diagnoses Not on filedocumented in this encounter Care Teams Durable Medical Equipment Technician Relationship Specialty Start Date End Date Sesar Pereyra MD [address] [place] [address] PCP - General Internal Medicine 03/01/21 [facility] 03/22/24 documented as of this encounter
--- OUTSIDE RECORDS SUMMARY | 2024-05-31 13:34 | XMS_ITS | Encounter Summary ---
Author Organization [facility] Address [address] [place] [address] Care Team Providers Care Metals Analyst Name Role Phone Yolande Nicholas DO Primary Care Pro vider Unavailable Anuj Priest DO Primary Care Provider [facility], Pcp Primary Care Provider Unavailabl e Reason for Visit * Reason Onset Date Comments Faxed Refill 05/30/2019 Encounter Details Date Type Department Care Team Description 05/30/2019 Refill Adult Medicine [address] [address] Yolande Nicholas DO Faxed Refill Social History [...] Telephone Encounter - Ramiro Duckworth C.M.A. - 05/31/2019 10:18 AM EST Last prescribed 05/15/19, refill? * Telephone Encounter - Bertha Ernandez - 05/30/2019 12:38 PM EST Patient would like script to be: E-PRESCRIBED/FAXED TO PHARMACY WHEN WAS THE PATIENT'S LAST APPOINTMENT IN ADULT MEDICINE? 05/15/19 WHEN WAS THE LAST TIME THE PATIENT SAW THEIR PCP? Same as above Does patient have an upcoming appointment? Yes 08/15/2019 (THE MEDICATION REQUESTED IS ON THE MED LIST ABOVE) All of the medications requested were on the CURRENT MEDS list Did you check the Pharmacy information above?: YES Patient wants: 30 -day supply Is this a mail order prescription request ? NO If the refill is from a FAXED refill request what is the RX # listed on the fax? [id number] Patients current insurance carrier is: Payor: [facility] - MEDICARE / Plan: [facility] FFS [facility] [id number] / Product Type: MEDICARE [id number] documented in this encounter Plan of Treatment Not on file documented as of this encounter Visit Diagnoses Not on filedocumented in this encounter Care Teams Metals Analyst Relationship Specialty Start Date End Date Yolande Nicholas DO PCP - General Internal Medicine 12/03/18 10/08/20 Anuj Priest DO PCP - General Internal Medicine 10/09/[address] [place] [address], Pcp PCP - General Internal Medicine 06/17/21 documented as of this encounter
--- OUTSIDE RECORDS SUMMARY | 2024-05-31 13:34 | XMS_ITS | Encounter Summary ---
Author Organization [employer] Address [address] [facility] 7[address] [place] [address] Care Team Providers Care Professor Of Religion Name Role Phone Sesar Pereyra MD Primary Care Provider [phone] Reason for Visit * Reason Onset Date Comments fyi 05/28/2024 Encounter Details Date Type Department Care Team ([facility] st Contact Info) Description 05/28/2024 Telephone [facility] [address] [place] [address] Sesar Pereyra MD [address] [place] [address] fyi Social History Tobacco Use Types Packs/Day Years [...] encounter Miscellaneous Notes * Telephone Encounter - Miri Young - 05/28/2024 9:37 AM EST Tc from [facility] with [employer] [facility] Include [address] [facility] Care informing pt verbalized to her that he been taking THD Gummies 2x a day morning and afternoon. Gummies are 10mg per gummy as he's aware of what he's taking. documented in this encounter Plan of Treatment Upcoming Encounters Date Type Department Care Team (Late st Contact Info) Description 06/13/2024 1:00 PM EST Office Visit [facility] MED & PEDS [address] [place] [address] Sesar Pereyra MD [address] [place] [address] documented as of this encounter Visit Diagnoses Not on filedocumented in this encounter Additional Health Concerns Assessment Noted Time PHQ-9 Depression Total Score: 16 024 10:59 AM EDT documented as of this encounter Care Teams Professor Of Religion Relationship Specialty Start Date End Date Sesar Pereyra MD [address] [place] [address] PCP - General Internal Medicine 03/01/21 [facility] [address] [facility] 03/22/24 documented as of this encounter
--- OUTSIDE RECORDS SUMMARY | 2024-05-31 13:34 | XMS_ITS | Encounter Summary ---
Author Organization [facility] Address [address] [place] [address] Care Team Providers Care Clinical Investigator Name Role Phone Ghassan Burciaga MD Primary Care Provider Unavail able Pierre Arevalo MD Primary Care Provider Judy vailable Gerson Dawson MD Primary Care Provider Unavail able [facility], Pcp Primary Care Provider Unavailabl e Coleman Mccarthy MD Primary Care Provider Unavaila Ayo Demarco MD Primary Care Provider [phone] Annalee Jones MD Primary Care Provider Un available Pascual Nicholasabela DO Primary Care Pro vider Unavailable Anuj Priest DO Primary Care Provider Judy vailable [facility], Pcp Primary Care Provider Unavailabl e Encounter Details Date Type Department Care Team Description 11/03/2006 Hospital Medical Records [address] [place] [address] Tyler Bloom MD Social History Tobacco Use Types Packs/Day [...] on filedocumented in this encounter Care Teams Clinical Investigator Relationship Specialty Start Date End Date Ghassan Burciaga MD PCP - General 07/24/00 05/06/13 Pierre Arevalo MD PCP - General Internal Medicine 05/07/13 4 Gerson Dawson MD PCP - General Internal Medicine 01/30/14 03/20/14 [facility], Pcp PCP - General Internal Medicine 03/21/14 05/06/14 Coleman Mccarthy MD PCP - General Internal Medicine 05/07/14 07/18/16 Ayo Carpio MD [address] [place], [place] [id number] PCP - General Internal Medicine 07/19/16 01/05/17 Annalee Jones MD [address] [place], [place] [id number] PCP - General Internal Medicine 01/06/17 12/02/18 Yolande Nicholas, DO [address] [place] [id number] PCP - General Internal Medicine 12/03/18 10/08/20 Anuj Priest, [address] [place] [address] PCP - General Internal Medicine 10/09/20 06/16/21 [facility], Pcp PCP - General Internal Medicine 06/17/21 documented as of this encounter
--- OUTSIDE RECORDS SUMMARY | 2024-05-31 13:34 | XMS_ITS | Encounter Summary ---
Author Organization [facility] [facility] Address [address] [place] [address] Care Team Providers Care [employer] [place] Name Role Phone Yolande Nicholas DO Primary Care Pro vider Unavailable Anuj Priest DO Primary Care Provider Judy álvarez [facility], Pcp Primary Care Provider Unavailabl e Encounter Details Date Type Department Care Team Description 03/06/2019 Accounts Receivable Associate Report Medical Records [address] [place] [address] Adilia Navarro PA-C Social History Tobacco Use Types Packs/Day [...] on filedocumented in this encounter Care Teams [employer] [place] Relationship Specialty Start Date End Date Yolande Nicholas DO PCP - General Internal Medicine 12/03/18 10/08/20 Anuj Priest DO PCP - General Internal Medicine 10/09/20 2 J[facility], Pcp PCP - General Internal Medicine 06/17/21 documented as of this encounter
--- OUTSIDE RECORDS SUMMARY | 2024-05-31 13:34 | XMS_ITS | Encounter Summary ---
Author Organization [employer] Address [address] [place] [address] Care Team Providers Care Dental Tech Name Role Phone Sesar Pereyra MD Primary Care Provider [phone] Encounter Details Date Type Department Care Team (Late st Contact Info) Description 05/30/2024 Telephone [facility]IC[facility] [address] [place] [address] Sesar Pereyra MD [address] [place] [address] Social History Tobacco Use Types Packs/Day Years [...] 1:00 PM EST Office Visit [facility] MED [facility]EDS [address] [place] [address] Sesar Pereyra MD [address] [place] [address] documented as of this encounter Visit Diagnoses Not on filedocumented in this encounter Additional Health Concerns Assessment Noted Time PHQ-9 Depression Total Score: 16 024 10:59 AM EDT documented as of this encounter Care Teams Dental Tech Relationship Specialty Start Date End Date Sesar Pereyra MD [address] [place] [address] PCP - General Internal Medicine 03/01/21 [facility] 03/22[facility]24 documented as of this encounter
--- OUTSIDE RECORDS SUMMARY | 2024-05-31 13:34 | XMS_ITS | Encounter Summary ---
Author Organization [facility] Address [address] [place] [address] Care Team Providers Care Music Rehabilitation Therapist Name Role Phone Ghassan Burciaga MD Primary Care Provider Unavail able Pierre Arevalo MD Primary Care Provider Judy vailable Gerson Dawson MD Primary Care Provider Unavail able [facility], Pcp Primary Care Provider Unavailabl e Coleman Mccarthy MD Primary Care Provider Unavaila Ayo Demarco MD Primary Care Provider [phone] Annalee Jones MD Primary Care Provider Un available Pascual Nicholasabela DO Primary Care Pro vider Unavailable Anuj Priest DO Primary Care Provider Judy vailable [facility], Pcp Primary Care Provider Unavailabl e Encounter Details Date Type Department Care Team Description 08/27/2010 [facility] Report Medical Records [address] [place] [address] Anuj [place] Social History Tobacco Use Types [...] on filedocumented in this encounter Care Teams Music Rehabilitation Therapist Relationship Specialty Start Date End Date Ghassan Burciaga MD PCP - General 07/24/00 05/06/13 Pierre Arevalo MD PCP - General Internal Medicine 05/07/13 4 Gerson Dawson MD PCP - General Internal Medicine 01/30/14 03/20/14 [facility], Pcp PCP - General Internal Medicine 03/21/14 05/06/14 Coleman Mccarthy MD PCP - General Internal Medicine 05/07/14 07/18/16 Ayo Carpio MD [address] [place] [address] PCP - General Internal Medicine 07/19/16 01/05/17 Annalee Jones MD [address] [place] [address] PCP - General Internal Medicine 01/06/17 12/02/18 Yolande Nicholas, [address] [place] [address] PCP - General Internal Medicine 12/03/18 10/08/20 Anuj Priest DO [address] [place] [address] PCP - General Internal Medicine 10/09/20 06/16/21 [facility], Pcp PCP - General Internal Medicine 06/17/21 documented as of this encounter
--- NOTE | 2024-05-31 13:39 | AM.OFFWIN_ITS ---
Intake Vital Signs 05/31/24 13:40 Weight 251 lb BP 130/80 Blood Pressure Location Rt brachial Position Sitting Pulse 64 Pulse Source Pulse Oximeter Temp 98.1 F Temp Source Oral Pulse Oximetry (%) 97 Oxygen Delivery Method Room Air Intake Visit Reasons: EP Back pain, kidney stone? Intake Note: Patient here for left back pain that has been present for about 1 week. Patient Tobacco Use Status: Former Tobacco user Allergies No Known Allergies [No Known Allergies*] Allergy (Verified 05/31/24 13:39) Do you need a note to return to daycare/school/sports/work: No HPI HPI Comments History of Present Illness Details This is a 79-year-old male who presented to the walk-in clinic complaining of left-sided low back pain times 1 week. Patient denies any recent trauma/injury; however, he states that did have a fall down the stairs 1 month ago in which he hurt the right side of his back and broke his right shoulder but his left side was not bothering him at that time. He reports a history of chronic peripheral neuropathy but denies any new or worsening numbness/weakness/paresthesias of his lower extremities. He denies any urinary retention/incontinence. He denies any bowel retention/incontinence. He denies any saddle anesthesias. He denies any urinary symptoms such as dysuria, hematuria, urinary frequency, or urinary urgency. He denies any abdominal symptoms such as abdominal pain or nausea/vomiting/diarrhea. [facility] Medical History Coronary artery disease Hypersomnia Snoring Neuropathy Atherosclerotic cardiovascular disease History of alcohol abuse History of COVID-19 On beta jose at home COPD (chronic obstructive pulmonary disease) On anticoagulant therapy History of atrial fibrillation PVD (peripheral vascular disease) Renal cell carcinoma Hypertension Depression Anxiety Diverticulitis Surgical History H/O cardiac catheterization History of colectomy S/P femoral-femoral bypass surgery Social History Household Members: Significant Other Housing: House Do you presently have visiting nurse or other home services: No Alcohol intake: never Patient Tobacco Use Status: Former Tobacco user Tobacco use type: Cigarette Substance Use Type: Marijuana Advance Directives Date on File: 06/09/21 service: Yes Current occupational status: retired Current occupation: right hand dominant Review of Systems Const All systems reviewed & are unremarkable except as noted in HPI and below Reports no additional complaints Eyes Reports no additional complaints ENT Reports no additional complaints Card Reports no additional complaints Resp Reports no additional complaints GI Reports no additional complaints Reports no additional complaints Musc Reports no additional complaints Skin/Breast Reports system reviewed and no additional complaints, except as documented Neuro Reports no additional complaints Psych Reports no additional complaints Endo Reports no additional complaints Fabien/Lymph Reports no additional complaints Aller/Immun Reports no additional complaints Physical Exam Vital Signs: Last Vital Signs Temp 98.1 F 05/31/24 13:40 Pulse 64 05/31/24 13:40 BP 130/80 05/31/24 13:40 Pulse Ox 97 05/31/24 13:40 Oxygen Delivery Method Room Air 05/31/24 13:40 Const Other: Vital signs reviewed. Constitutional: Non-toxic appearing. No acute distress. Well-developed and well-nourished. HEENT: Normocephalic and atraumatic. Skin: Warm and dry. No rashes or lesions noted. Neck: Full and painless range of motion. No cervical lymphadenopathy. Cardio: Regular rate. No lower extremity edema. No JVD. Pulmonary: No respiratory distress. No accessory muscle usage. Gastrointestinal: Soft, nontender, and nondistended in all 4 quadrants. Normoactive bowel sounds in all 4 quadrants. Genitourinary: No CVA tenderness bilaterally. Musculoskeletal: He has tenderness to palpation in the left paraspinal musculature. He has no midline or spinous process tenderness to palpation. Neuro: Alert and oriented x4. Cranial nerves 2-12 grossly intact. No focal deficits appreciated. Psych: Normal mood and affect. Results AMB Urinalysis, Automated UA Leukoctes 0 Bladimir/uL Last Edit by SANDY Chowdhury on 05/31/24 13:50 UA Nitrite Negative Last Edit by SANDY Chowdhury on 05/31/24 13:50 UA Urobilinogen 0.2 mg/dL Last Edit by SANDY Chowdhury on 05/31/24 13:50 UA Protein 0 mg/dL Last Edit by SANDY Chowdhury on 05/31/24 13:50 UA pH 6.0 Last Edit by Blaire Mc [facility] on 05/31/24 13:50 UA Blood 0 Clarence/uL Last Edit by Blaire Mc [facility] on 05/31/24 13:50 UA Specific [place] 1.015 Last Edit by Blaire Mc [facility] on 05/31/24 13:50 UA Ketone Negative Last Edit by Blaire Mc [facility] on 05/31/24 13:50 UA Bilirubin 0 mg/dL Last Edit by Blaire Mc [facility] on 05/31/24 13:50 UA Glucose 0 mg/dL Last Edit by Blaire Mc [facility] on 05/31/24 13:50 Assessment & Plan Assessment & Plan (1) Low back pain: Code(s): M54.50 - Low back pain, unspecified Qualifiers: Back pain laterality: left Chronicity: acute Sciatica presence: without sciatica Qualified Code(s): M54.50 - Low back pain, unspecified Plan: This is a 79-year-old male who presented to the walk-in clinic complaining of left-sided low back pain. On physical examination, he is tenderness to palpation and muscle spasms of the left lumbar paraspinal musculature. He has no CVA tenderness bilaterally amd his urinalysis was negative for hematuria. He has no red flag symptoms. His symptoms appear to be musculoskeletal related either muscle spasm or sprain/strain. Recommended supportive management such as rest/activity modification, ice/heat to the area, acetaminophen for pain management, and he was given a prescription for p.o. cyclobenzaprine 10 mg every night at bedtime as needed for muscle spasms. He was advised to follow-up here for persistent or worsening symptoms and he was advised to follow-up with the emergency room if he were to develop any red flag symptoms as detailed above. Patient verbalizes understanding and he is in agreement with the plan and he was very appreciative. Orders: Orders AMB Urinalysis Automated Today Minal Sommers NP Z13.9 - Encounter for screening, unspecified Medications: New cyclobenzaprine 10 mg PO BEDTIME PRN [address] [place] Coding Level of Care Code Est Pt Level 3 (26580) Diagnoses Acute left-sided low back pain without sciatica M54.50 Back pain laterality: left Chronicity: acute Sciatica presence: without sciatica
[2024-05-31 13:40] VITALS: BP 130/80; PULSE 64; TEMP 36.7; O2SAT 97
== END 2024-05-31 14:45 | disposition home or self-care (01) ==
PROVIDERS: PCP Internal Medicine; Visit Provider Physician Assistant Medical
DX: M54.50 Low back pain, unspecified (principal); Z13.9 Encounter for screening, unspecified

== ENCOUNTER → 2024-05-31 13:15 | Outpatient (BNVA) | payer MEDICARE, SELFPAY | PROVIDERS: PCP Internal Medicine | DX: M54.50 Low back pain, unspecified (principal) | CPT/HCPCS: 81003; 99212 ==

== ENCOUNTER 2024-06-12 10:42 | Outpatient (AMB) | payer MEDICARE, SELFPAY ==
--- NOTE | 2024-06-12 10:54 | HO.NEPHOV_ITS ---
Vital Signs 06/12/24 10:58 Height 6 ft Weight 246 lb BMI 33.4 BP 140/70 H Blood Pressure Location Lt brachial Position Sitting Pulse 57 Pulse Source Pulse Oximeter Pulse Oximetry (%) 98 Oxygen Delivery Method Room Air Intake Visit Reasons: 3mon follow up/ Conf Community Development Coordinator Required: No Accompanied by: Other Relationship Allergies No Known Allergies [No Known Allergies*] Allergy (Verified 06/12/24 10:58) HPI Comments Details: Mr. Johnson was seen in follow up for CKD. He was seen in ER last night for AFib with RVR. . He had a remote history of left renal carcinoma which was treated by partial nephrectomy in 2006 . He recently had a follow-up MRI which revealed a 1.6 cm left renal mass which appear to be enhancing and suspicious for renal cell cancer. 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 He also has been having lower urinary tract symptoms and had been started on Flomax. He is known to have peripheral vascular disease and had undergone bypass. He has history of renal stones but has not had one lately. Remotely he had colectomy and colostomy which had been reversed in 2006 , He denies any flank pain, hematuria, dysuria. He denies taking nonsteroidal anti-inflammatory medications. He does not have any coronary artery disease, congestive heart failure or known renal artery stenosis. He takes lisinopril and metoprolol and his BP has been at goal. He is on anticoagulation. His recent serum creatinine was found to be 1.41. He has been having pain at the L SI joint [facility] Medical History Coronary artery disease Hypersomnia Snoring Neuropathy Atherosclerotic cardiovascular disease History of alcohol abuse History of COVID-19 On beta jose at home COPD (chronic obstructive pulmonary disease) On anticoagulant therapy History of atrial fibrillation PVD (peripheral vascular disease) Renal cell carcinoma Hypertension Depression Anxiety Diverticulitis Surgical History H/O cardiac catheterization History of colectomy S/P femoral-femoral bypass surgery Social History Household Members: Significant Other Housing: House Do you presently have visiting nurse or other home services: No Alcohol intake: never Patient Tobacco Use Status: Former Tobacco user Tobacco use type: Cigarette Substance Use Type: Marijuana Advance Directives Date on File: 06/09/21 service: Yes Current occupational status: retired Current occupation: right hand dominant Review of Systems Const All systems reviewed & are unremarkable except as noted in HPI and below Physical Exam Vital Signs: Last Vital Signs Pulse 57 06/12/24 10:58 BP 140/70 H 06/12/24 10:58 Pulse Ox 98 06/12/24 10:58 Oxygen Delivery Method Room Air 06/12/24 10:58 BMI result Body Mass Index 33.4 Const General: comfortable and no acute distress Orientation/consciousness: patient oriented x3 HEENT Head: Yes normocephalic Mouth: Normal oral and palatal mucosa present Eyes EOM: EOMs intact bilaterally Neck Neck: Yes supple Resp Auscultation: clear to auscultation bilaterally Cardio Jugular venous distension: no JVD Rate: regular rate GI Palpation (GI): Soft to palpation Auscultation: normal bowel sounds General: Yes no CVA tenderness Back/Spine/Pelvis Back: no CVA tenderness Skin General skin exam: no rashes or lesions noted Neuro General: patient oriented x3 and moves all extremities Extrem General: Yes no pedal edema Results Reviewed Nephrology Results: No Data to Display Assessment & Plan Assessment & Plan (1) CKD (chronic kidney disease) stage 3, GFR 30-59 ml/min: Code(s): N18.30 - Chronic kidney disease, stage 3 unspecified Category: Medical Qualifiers: Chronic kidney disease stage 3 subtype: stage 3a (GFR 45-59) Qualified Code(s): N18.31 - Chronic kidney disease, stage 3a (2) Hypertension: Code(s): I10 - Essential (primary) hypertension Category: Medical Qualifiers: Hypertension type: renovascular hypertension Qualified Code(s): I15.0 - Renovascular hypertension Plan Alex has chronic kidney disease most likely from vascular disease. He also had the loss of GFR from his partial nephrectomy. He is known to have bypasses for his PAD. He has a biopsy-proven clear cell renal cancer. He underwent cryoablation. His follow up MRI showed no convincing evidence for residual recurrent disease. He should remain well hydrated. I will do a Doppler of his renal arteries and shall consider doing a split study of his kidney function in the future. He avoids nonsteroidal anti-inflammatory medications. He should remain well hydrated. He will be a candidate for SGLT2 i. He will benefit from intra articular steroid injection. I answered all his questions. Follow-up blood work ordered Orders: Orders Blood Urea Nitrogen Today I15.0 - Renovascular hypertension, N18.31 - Chronic kidney disease, stage 3a Electrolytes Today I15.0 - Renovascular hypertension, N18.31 - Chronic kidney disease, stage 3a Blood Urea Nitrogen 6 Months I15.0 - Renovascular hypertension, N18.31 - Chronic kidney disease, stage 3a Electrolytes 6 Months I15.0 - Renovascular hypertension, N18.31 - Chronic kidney disease, stage 3a Creatinine Today I15.0 - Renovascular hypertension, N18.31 - Chronic kidney disease, stage 3a Creatinine 6 Months I15.0 - Renovascular hypertension, N18.31 - Chronic kidney disease, stage 3a Coding Level of Care Code Est Pt Level 4 (92603) Diagnoses Stage 3a chronic kidney disease N18.31 Chronic kidney disease stage 3 subtype: stage 3a (GFR 45-59) Renovascular hypertension I15.0 Hypertension type: renovascular hypertension
[2024-06-12 10:58] VITALS: BP 140/70; PULSE 57; O2SAT 98; BMI 33.4
--- OUTSIDE RECORDS SUMMARY | 2024-06-12 12:28 | XMS_ITS | Encounter Summary ---
Author Organization [facility] Address [address] [place] [address] Care Team Providers Care Route Driver Coin Machines Name Role Phone Yolande Nicholas DO Primary Care Pro vider Unavailable Anuj Priest DO Primary Care Provider [facility], Pcp Primary Care Provider Unavailabl e Reason for Visit * Reason Onset Date Comments anxiety 09/16/2019 Encounter Details Date Type Department Care Team Description 09/16/2019 Pt. Non Urgent Medic al Question Adult Medicine [address] [address] Yolande Nicholas DO Social History Tobacco Use [...] the med report [facility] . I need to know which meds i should take? Alex Nettles documented in this encounter Plan of Treatment Not on file documented as of this encounter Visit Diagnoses Not on filedocumented in this encounter Care Teams Route Driver Coin Machines Relationship Specialty Start Date End Date Yolande Nicholas DO PCP - General Internal Medicine 12/03/18 10/08/20 Anuj Priest DO PCP - General Internal Medicine 10/09/20 2 [facility], Pcp PCP - General Internal Medicine 06/17/21 documented as of this encounter
--- OUTSIDE RECORDS SUMMARY | 2024-06-12 12:28 | XMS_ITS | Encounter Summary ---
Author Organization [facility] Address [address] [place] [address] Care Team Providers Care Show Host Or Hostess Name Role Phone Ghassan Burciaga MD Primary Care Provider Unavail able Pierre Arevalo MD Primary Care Provider Judy vailable Gerson Dawson MD Primary Care Provider Unavail able [facility], Pcp Primary Care Provider Unavailabl e Coleman Mccarthy MD Primary Care Provider Unavaila Ayo Demarco MD Primary Care Provider [phone] Annalee Jones MD Primary Care Provider Un available Kim Banegas Yolande DO Primary Care Pro vider Unavailable Anuj Priest DO Primary Care Provider Judy vailable [facility], Pcp Primary Care Provider Unavailabl e Encounter Details Date Type Department Care Team Description 06/25/2011 Pt. Non Urgent Medic al Question Medicine/Pediatrics - [address] [address] Ghassan Burciaga MD Social History Tobacco Use [...] on filedocumented in this encounter Care Teams Show Host Or Hostess Relationship Specialty Start Date End Date Ghassan Burciaga MD PCP - General 07/24/00 05/06/13 Pierre Arevalo MD PCP - General Internal Medicine 05/07/13 4 Gerson Dawson MD PCP - General Internal Medicine 01/30/14 03/20/14 [facility], Pcp PCP - General Internal Medicine 03/21/14 05/06/14 Coleman Mccarthy MD PCP - General Internal Medicine 05/07/14 07/18/16 Ayo Carpio MD [address] [place] [address] PCP - General Internal Medicine 07/19/16 01/05/17 Annalee Jones MD [address] [place] [address] PCP - General Internal Medicine 01/06/17 12/02/18 Yolande Nicholas, [address] [address] PCP - General Internal Medicine 12/03/18 10/08/20 Anuj Priest, [address] [address] PCP - General Internal Medicine 10/09/20 06/16/21 [facility], Pcp PCP - General Internal Medicine 06/17/21 documented as of this encounter
--- OUTSIDE RECORDS SUMMARY | 2024-06-12 12:28 | XMS_ITS | Encounter Summary ---
Author Organization [employer] [facility] Address [address] [place] [address] Care Team Providers Care Dyno Technician Name Role Phone Ghassan Burciaga MD Primary Care Provider Unavail able Pierre Arevalo MD Primary Care Provider Judy vailable Gerson Dawson MD Primary Care Provider Unavail able [facility], Pcp Primary Care Provider Unavailabl Coleman Sampson MD Primary Care Provider Unavaila Ayo Demarco MD Primary Care Provider [phone] Annalee Jones MD Primary Care Provider Un available Pascual Nicholasabela DO Primary Care Pro vider Unavailable Anuj Priest DO Primary Care Provider Judy vailable [facility], Pcp Primary Care Provider Unavailabl e Encounter Details Date Type Department Care Team Description 06/27/2011 Business Doc Medical Records [address] [place] [address] Abstract, Provider Social History Tobacco Use Types [...] on filedocumented in this encounter Care Teams Dyno Technician Relationship Specialty Start Date End Date Ghassan Burciaga MD PCP - General 07/24/00 05/06/13 Pierre Arevalo MD PCP - General Internal Medicine 05/07/13 4 Gerson Dawson MD PCP - General Internal Medicine 01/30/14 03/20/14 [facility], Pcp PCP - General Internal Medicine 03/21/14 05/06/14 Coleman Mccarthy MD PCP - General Internal Medicine 05/07/14 07/18/16 Ayo Carpio MD [address] [place], [place] [id number] PCP - General Internal Medicine 07/19/16 01/05/17 Annalee Jones MD [address] [place], [place] [id number] PCP - General Internal Medicine 01/06/17 12/02/18 Yolande Nicholas DO [address] [place] [address] PCP - General Internal Medicine 12/03/18 10/08/20 Anuj Priest DO [address] [place] [address] PCP - General Internal Medicine 10/09/20 06/16/21 [facility], Pcp PCP - General Internal Medicine 06/17/21 documented as of this encounter
--- OUTSIDE RECORDS SUMMARY | 2024-06-12 12:28 | XMS_ITS | Encounter Summary ---
Author Organization [facility] Address [address] [place] [address] Care Team Providers Care Chemical Dependency Professional Name Role Phone Yolande Nicholas DO Primary Care Pro vider Unavailable Anuj Priest DO Primary Care Provider [facility], Pcp Primary Care Provider Unavailabl e Reason for Visit * Reason Onset Date Comments Faxed Refill 09/10/2019 Encounter Details Date Type Department Care Team Description 09/10/2019 Refill Adult Medicine [address] [address] Yolande Nicholas DO Faxed Refill Social History [...] N/A Patients current insurance carrier is: Payor: [facility] / Plan: MEDICARE FFS [facility] [id number] / Product Type: MEDICARE [id number] documented in this encounter Plan of Treatment Not on file documented as of this encounter Visit Diagnoses Not on filedocumented in this encounter Care Teams Chemical Dependency Professional Relationship Specialty Start Date End Date Yolande Nicholas DO PCP - General Internal Medicine 12/03/18 10/08/20 Anuj Priest DO PCP - General Internal Medicine 10/09/20 2 [facility], Pcp PCP - General Internal Medicine 06/17/21 documented as of this encounter
--- OUTSIDE RECORDS SUMMARY | 2024-06-12 12:28 | XMS_ITS | Encounter Summary ---
Author Organization [facility] Address [address] [place] [address] Care Team Providers Care User Interface Designer Name Role Phone Yolande Nicholas DO Primary Care Pro vider Unavailable Anuj Priest DO Primary Care Provider [facility], Pcp Primary Care Provider Unavailabl e Reason for Visit * Reason Onset Date Comments Abdominal Pain 10/08/2019 Hernia 10/08/2019 Encounter Details Date Type Department Care Team Description 10/08/2019 Telephone Adult Medicine [address] [address] Yolande Nicholas DO Abdominal Pain; Hernia Social History Tobacco Use Types Packs/Day Years [...] Telephone Encounter - Minerva Kan R.N. - 10/09/2019 4:20 PM EDT I left a message for the patient to return my call.pt needs in office eval of abd lump * Telephone Encounter - Yolandemaine Banegas DO - 10/09/2019 1:34 PM EDT In office is okay * Telephone Encounter - Minerva Kan R.N. - 10/08/2019 5:10 PM EDT P[t has had a baseball sized lump on the left lower quadrant , area is tender if he pushes on it , if he moves or strains he notices the lump more and it is more tender . He has no pain now, if he issitting sti;ll Pt has no chest pain ort SOB, no N/V/D or fever, has nl bowel sounds ( feels gas going around ) no black or bloody stools, he is taking po with no problems, the lump is soft but he cannot push it flat, is always bulging Pt has had several surgeries in this area , girlfriend states he once had a rib removed and a big surgery for kidney cancer in the same area , Pt was covid + in august, can pt be seen in th office for this or thought video ? Please advise * Telephone Encounter - [place] - 10/08/2019 3:25 PM EDT Pt is calling back and can be reached back at [phone] * Telephone Encounter - Minerva Kan R.N. - 10/08/2019 3:06 PM EDT Ame is not with him. Call pt on his cell phone , left a message * Telephone Encounter - Lavonne Bernabe - 10/08/2019 3:04 PM EDT Ame calling back and would like CB at [phone] * Telephone Encounter - Sharmaine Bose - 10/08/2019 2:57 PM EDT Ame returning call * Telephone Encounter - Minerva Kan R.N. - 10/08/2019 2:40 PM EDT I left a message for the patient to return my call. * Telephone Encounter - Valerie Hagen - 10/08/2019 1:37 PM EDT Symptoms patient is having: the pt is having abdominal pain and has protrusion at the site of his previous cancer For ALL patients calling to schedule any appointment (routine, sick visit, follow up, consult, etc.) in the outpatient setting please ask the following questions. ??? Do you have fever of higher than 101, sore throat with difficulty swallowing or severe shortness of breath? NO If YES any of these above symptoms send a message to triage and do not book. Red dot. If no, an audio or video visit should be booked. ??? Have you had close contact with someone with Coronavirus in the last 14 days? NO ??? Have you traveled abroad? NO ??? Have you been to [place] or in contact with anyone who has recently been in [place]? NO If pain or injury related was it due to an accident at work or from a motor vehicle accident? NO If yes, gather 3rd constitution party insurance information Date of accident/Injury: How long has patient had these symptoms?: PCP: Yolande Gomez Payor: [employer] - MEDICARE / Plan: MEDICARE FFS $5 KARI MESA [id number] / Product Type: MEDICARE [id number] documented in this encounter Plan of Treatment Not on file documented as of this encounter Visit Diagnoses Not on filedocumented in this encounter Care Teams User Interface Designer Relationship Specialty Start Date End Date Yolande Nicholas DO PCP - General Internal Medicine 12/03/18 10/08/20 Anuj Priest DO PCP - General Internal Medicine 10/09/20 2 Jj, Pcp PCP - General Internal Medicine 06/17/21 documented as of this encounter
--- OUTSIDE RECORDS SUMMARY | 2024-06-12 12:28 | XMS_ITS | Encounter Summary ---
Author Organization [facility] Address [address] [place] [address] Care Team Providers Care Manager Shipping Name Role Phone Yolande Nicholas DO Primary Care Pro vider Unavailable Anuj Priest DO Primary Care Provider [facility], Pcp Primary Care Provider Unavailabl e Reason for Visit * Reason Onset Date Comments VNA Call 09/16/2019 Encounter Details Date Type Department Care Team Description 09/16/2019 Telephone Internal Medicine - [address], [address] [place], [place] [id number] Alana Stinson MD [address] [place] [phone] VNA Call Social History Tobacco Use Types [...] Telephone Encounter - Minerva Kan R.N. - 09/17/2019 10:40 AM EDT Pt was covid + august 3 . Message left for kalie mota * Telephone Encounter - Saige Pizano L.P.N. - 09/17/2019 9:24 AM EDT Left voicemail for Kalie-VNA to call back regarding patient, Saige Pizano L.P.N. * Telephone Encounter - Skylar Bowers R.N. - 09/16/2019 10:55 AM EDT Message routed to [facility] * Telephone Encounter - Ava Hull - 09/16/2019 10:19 AM EDT VNA CALL Which VNA office is calling? [facility] Full name of caller: Kalie The caller is A nurse Is the caller at the patients home?: NO Reason for call: Nurse is waiting to go to home to start homecare services but needs to make sure that patient is clear of covid 19. Does caller need an urgent call back? YES Was CONTACT Telephone # obtained above?: YES Fax #: na documented in this encounter Plan of Treatment Not on file documented as of this encounter Visit Diagnoses Not on filedocumented in this encounter Care Teams Manager Shipping Relationship Specialty Start Date End Date Yolande Nicholas DO PCP - General Internal Medicine 12/03/18 10/08/20 Anuj Priest DO PCP - General Internal Medicine 10/09/20 2 [facility], Pcp PCP - General Internal Medicine 06/17/21 documented as of this encounter
--- OUTSIDE RECORDS SUMMARY | 2024-06-12 12:28 | XMS_ITS | Encounter Summary ---
Author Organization [employer] [facility] Address [address] [place] [address] Care Team Providers Care Steam Tunnel Feeder Name Role Phone Ghassan Burciaga MD Primary Care Provider Unavail able Pierre Arevalo MD Primary Care Provider Judy vailable Gerson Dawson MD Primary Care Provider Unavail able [facility], Pcp Primary Care Provider Unavailabl e Coleman Mccarthy MD Primary Care Provider Unavaila Ayo Demarco MD Primary Care Provider [phone] Annalee Jones MD Primary Care Provider Un available Pascual Nicholasabela DO Primary Care Pro vider Unavailable Anuj Priest DO Primary Care Provider Judy vailable [facility], Pcp Primary Care Provider Unavailabl e Encounter Details Date Type Department Care Team Description 07/05/2011 Crew Team Member Report Medical Records [address] [place] [address] Abstract, Provider Social History Tobacco Use Types [...] on filedocumented in this encounter Care Teams Steam Tunnel Feeder Relationship Specialty Start Date End Date Ghassan Burciaga MD PCP - General 07/24/00 05/06/13 Pierer Arevalo MD PCP - General Internal Medicine 05/07/13 4 Gerson Dawson MD PCP - General Internal Medicine 01/30/14 03/20/14 [facility], Pcp PCP - General Internal Medicine 03/21/14 05/06/14 Coleman Mccarthy MD PCP - General Internal Medicine 05/07/14 07/18/16 Ayo Carpio MD [address] [place], [place] [id number] PCP - General Internal Medicine 07/19/16 01/05/17 Annalee Jones MD [address] [place], [place] [id number] PCP - General Internal Medicine 01/06/17 12/02/18 Yolande Nicholas DO [address] [place] [address] PCP - General Internal Medicine 12/03/18 10/08/20 Anuj Priest DO [address] [place] [address] PCP - General Internal Medicine 10/09/20 06/16/21 [facility], Pcp PCP - General Internal Medicine 06/17/21 documented as of this encounter
--- OUTSIDE RECORDS SUMMARY | 2024-06-12 12:28 | XMS_ITS | Encounter Summary ---
Author Organization [facility] Address [address] [place] [address] Care Team Providers Care Lubricating Engineer Name Role Phone Yolande Nicholas DO Primary Care Pro vider Unavailable Anuj Priest DO Primary Care Provider Judy Gardner, Pcp Primary Care Provider Unavailabl e Encounter Details Date Type Department Care Team Description 10/07/2019 Loader Technician Report Medical Records [address] [place] [address] Dhruv Gacria MD Social History Tobacco Use Types Packs/Day [...] on filedocumented in this encounter Care Teams Lubricating Engineer Relationship Specialty Start Date End Date Yolande Nicholas DO PCP - General Internal Medicine 12/03/18 10/08/20 Anuj Priest DO PCP - General Internal Medicine 10/09/20 Jj, Pcp PCP - General Internal Medicine 06/17/21 documented as of this encounter
--- OUTSIDE RECORDS SUMMARY | 2024-06-12 12:28 | XMS_ITS | Encounter Summary ---
Author Organization [facility] Address [address] [place] [address] Care Team Providers Care Storage Center Manager Name Role Phone Ghassan Burciaga MD Primary Care Provider Unavail able Pierre Arevalo MD Primary Care Provider Judy vailable Gerson Dawson MD Primary Care Provider Unavail able [facility], Pcp Primary Care Provider Unavailabl e Coleman Mccarthy MD Primary Care Provider Unavaila Ayo Demarco MD Primary Care Provider [phone] Annalee Jones MD Primary Care Provider Un available Kim Banegas Yolande DO Primary Care Pro vider Unavailable Anuj Priest DO Primary Care Provider Judy vailable [facility], Pcp Primary Care Provider Unavailabl e Encounter Details Date Type Department Care Team Description 06/25/2011 Pt. Non Urgent Medic al Question Medicine/Pediatrics - [address] [phone] Ghassan Burciaga MD Social History Tobacco Use [...] on filedocumented in this encounter Care Teams Storage Center Manager Relationship Specialty Start Date End Date Ghassan Burciaga MD PCP - General 07/24/00 05/06/13 Pierre Arevalo MD PCP - General Internal Medicine 05/07/13 4 Gerson Dawson MD PCP - General Internal Medicine 01/30/14 03/20/14 [facility], Pcp PCP - General Internal Medicine 03/21/14 05/06/14 Coleman Mccarthy MD PCP - General Internal Medicine 05/07/14 07/18/16 Ayo Carpio MD [address] [place] [address] PCP - General Internal Medicine 07/19/16 01/05/17 Annalee Jones MD [address] [place] [address] PCP - General Internal Medicine 01/06/17 12/02/18 Yolande Nicholas, [address] [address] PCP - General Internal Medicine 12/03/18 10/08/20 Anuj Priest, [address] [address] PCP - General Internal Medicine 10/09/20 06/16/21 [facility], Pcp PCP - General Internal Medicine 06/17/21 documented as of this encounter
--- OUTSIDE RECORDS SUMMARY | 2024-06-12 12:28 | XMS_ITS | Encounter Summary ---
Author [facility] Address [address] [place] [address] Care Team Providers Care Firer Marine Name Role Phone Yolande Nicholas DO Primary Care Pro vider Unavailable Anuj Priest DO Primary Care Provider Judy Gardner, Pcp Primary Care Provider Unavailabl e Encounter Details Date Type Department Care Team Description 10/07/2019 Pt. Non Urgent Medic al Question Adult Medicine [address] [address] Yolande Nicholas DO Social History Tobacco Use [...] on filedocumented in this encounter Care Teams Firer Marine Relationship Specialty Start Date End Date Yolande Nicholas DO PCP - General Internal Medicine 12/03/18 10/08/20 Anuj Priest DO PCP - General Internal Medicine 10/09/20 Molly Gardner, Pcp PCP - General Internal Medicine 06/17/21 documented as of this encounter
--- OUTSIDE RECORDS SUMMARY | 2024-06-12 12:28 | XMS_ITS | Encounter Summary ---
[facility] Address [address] [place] [address] Care Team Providers Care Echocardiographer Name Role Phone Ghassan Burciaga MD Primary Care Provider Unavail able Pierre Arevalo MD Primary Care Provider Judy vailable Gerson Dawson MD Primary Care Provider Unavail able [facility], Pcp Primary Care Provider Unavailabl e Coleman Mccarthy MD Primary Care Provider Unavaila Ayo Demarco MD Primary Care Provider [phone] Annalee Jones MD Primary Care Provider Un available Yolande Nicholas DO Primary Care Pro vider Unavailable Anuj Priest DO Primary Care Provider Judy vailable [facility], Pcp Primary Care Provider Unavailabl e Reason for Visit * Reason Onset Date Comments Form 06/15/2011 From [facility] Encounter Details Date Type Department Care Team Description 06/15/2011 Telephone Medicine/Pediatrics - [address] [phone] Ghassan Burciaga MD Form (From [facility]) Social History Tobacco Use Types Packs/Day Years Used Date Smoking Tobacco: Former Cigarettes 1 35 Q uit: 07/26/2005 Alcohol Use Standard Drinks/Week Comments No 0 (1 standard drink = 0.6 oz pur e alcohol) prior heavy stopped 3. Sex Assigned at Date Recorded Not on file documented as of this encounter Miscellaneous Notes * Telephone Encounter - Nya Pereira M.A. - 06/17/2011 9:21 AM EST Letter mailed to Folow up Dept C/o [facility] [address] [place] [address] * Telephone Encounter - Ghassan Burciaga MD - 06/16/2011 5:23 PM EST Form completed * Telephone Encounter - Verona García M.A. - 06/15/2011 1:05 PM EST Form completed and sent to pcp for signature. * Telephone Encounter - Pranav Carvajal - 06/15/2011 10:27 AM EST If patient presents with the one of the forms directly below the direct patient with their forms toMedical Records to be completed by [facility]. All [facility] disability forms ONLY All Import And Export Clerk requests for Worker's Compensation Motor vehicle accident [facility] Elder Care/VNA Physical forms for long-term housing Life insurance FORMS TO BE COMPLETED IN THE PRACTICE: Type of form: [facility] follow up information form Release of information form ( all sections) has been completed and Signed.NO If this form is for the Registry of Motor Vechicles for a handicap placard or plate is the patient go to be: N/A -not a Registry form Is the patient still driving? N\A For what medical problem does the patient need this form completed? Is patients name on the form? YES Is the patients portion (demographics) of the form completed? NO Did the patient sign the form? NO Which provider is form to be completed by? Dr. Burciaga Patient requesting the form be: Mail to another office/MD at: [facility] Tumor Registry/[place] [address] [place] [address] If form is not to be picked up by patient has patient been informed that RELEASE OF INFO form must be signed by them for alternate person to flower picker form? NO Patient has been informed that completion will be in 7-10 business days: YES documented in this encounter Plan of Treatment Not on file documented as of this encounter Visit Diagnoses Not on filedocumented in this encounter Care Teams Echocardiographer Relationship Specialty Start Date End Date Ghassan Burciaga MD PCP - General 07/24/00 05/06/13 Pierre Arevalo MD PCP - General Internal Medicine 05/07/13 4 Gerson Dawson MD PCP - General Internal Medicine 01/30/14 03/20/14 [facility], Pcp PCP - General Internal Medicine 03/21/14 05/06/14 Coleman Mccarthy MD PCP - General Internal Medicine 05/07/14 07/18/16 Ayo Carpio MD [address] [place] [address] PCP - General Internal Medicine 07/19/16 01/05/17 Annalee Jones MD [address] [place] [address] PCP - General Internal Medicine 01/06/17 12/02/18 Yolande Nicholas, DO [address] [place] [address] PCP - General Internal Medicine 12/03/18 10/08/20 Anuj Priest DO [address] [place] [address] PCP - General Internal Medicine 10/09/20 06/16/21 [facility], Pcp PCP - General Internal Medicine 06/17/21 documented as of this encounter
--- OUTSIDE RECORDS SUMMARY | 2024-06-12 12:28 | XMS_ITS | Encounter Summary ---
Author Organization [facility] Address [address] [place] [address] Care Team Providers Care Machine Plaster Mixer Name Role Phone Yolande Nicholas DO Primary Care Pro vider Unavailable Anuj Priest DO Primary Care Provider [facility], Pcp Primary [facility] Encounter Details Date Type Department Care Team Description 09/26/2019 Pt. Non Urgent Medical Question Adult Medicine [address] [address] Alana Stinson MD [address] [place] [phone] Social History Tobacco Use Types Packs/Day [...] him, told him needs to fu / [facility] [place] cards for both. Can consider change in [...] on filedocumented in this encounter Care Teams Machine Plaster Mixer Relationship Specialty Start Date End Date Yolande Nicholas DO PCP - General Internal Medicine 12/03/18 10/08/20 Anuj Priest DO PCP - General Internal Medicine 10/09/20 2 [facility], Pcp PCP - General Internal Medicine 06/17/21 documented as of this encounter
--- OUTSIDE RECORDS SUMMARY | 2024-06-12 12:28 | XMS_ITS | Encounter Summary ---
Author Organization [facility] Address [address] [place] [address] Care Team Providers Care Sequins Slinger Name Role Phone Yolande Nicholas DO Primary Care Pro vider Unavailable Anuj Priest DO Primary Care Provider [facility], Pcp Primary Care Provider Unavailabl e Reason for Visit * Reason Onset Date Comments anxiety 09/17/2019 Encounter Details Date Type Department Care Team Description 09/17/2019 Pt. Non Urgent Medic al Question Adult Medicine [address] [address] Yolande Nicholas DO Social History Tobacco Use [...] Encounter - Kira Lee M.A. - 09/17/2019 10:22 AM EDTFrom: Alex Nettles To: Yolande Banegas DO Sent: 09/17/2019 7:29 AM EDT Subject: anxiety I had a visiting nurse named Maik on the 09/16/2019 he sugested that i take ativan for my anxiety. My anxiety is about a 10 righr now after getting out of [facility] for the covid 19 my girl friend it seems like i am a different person. You have now idea what i went through there in the hospit al and coming home in this of anxiety. I need help like i said the visiting nurse sugested i take ativan for my anxiety. My therpist Ava from [facility] said i should be taking a higher dose ofxienty med. If you have any kind of syphinthy for me . To get me through this difficult time you will help me with this terrible anxiety Alex Nettles documented in this encounter Plan of Treatment Not on file documented as of this encounter Visit Diagnoses Not on filedocumented in this encounter Care Teams Sequins Slinger Relationship Specialty Start Date End Date Yolande Nicholas DO PCP - General Internal Medicine 12/03/18 10/08/20 Anuj Priest DO PCP - General Internal Medicine 10/09/[address] [place] [address], Pcp PCP - General Internal Medicine 06/17/21 documented as of this encounter
--- OUTSIDE RECORDS SUMMARY | 2024-06-12 12:28 | XMS_ITS | Encounter Summary ---
Author Organization [facility] Address [address] [place] [address] Care Team Providers Care Shearing Shed Worker Name Role Phone Yolande Nihcolas DO Primary Care Pro vider Unavailable Anuj Priest DO Primary Care Provider Judy Gardner, Pcp Primary Care Provider Unavailabl e Encounter Details Date Type Department Care Team Description 09/20/2019 Pt. Non Urgent Medic al Question Adult Medicine [address] [address] Yolande Nicholas DO Social History Tobacco Use [...] on filedocumented in this encounter Care Teams Shearing Shed Worker Relationship Specialty Start Date End Date Yolande Nicholas DO PCP - General Internal Medicine 12/03/18 10/08/20 Anuj Priest DO PCP - General Internal Medicine 10/09/20 Molly Gardner, Pcp PCP - General Internal Medicine 06/17/21 documented as of this encounter
--- OUTSIDE RECORDS SUMMARY | 2024-06-12 12:28 | XMS_ITS | Encounter Summary ---
Author Organization [facility] Address [address] [place] [address] Care Team Providers Care Tool Distributor Name Role Phone Yolande Nicholas DO Primary Care Pro vider Unavailable Anuj Priest DO Primary Care Provider [facility], Pcp Primary Care Provider [facility] Encounter Details Date Type Department Care Team Description 09/24/2019 Pt. Non Urgent Medic al Question Adult Medicine [address] [address] Yolande Nicholas DO Social History Tobacco Use [...] Metcalf - 09/24/2019 9:18 AM EDTFrom: Alex Nettles To: Yolande Banegas DO Sent: 09/24/2019 8:39 AM EDT Subject: .left leg very sore. I went to the ER in [place] to have my leg looked at and [...] been this way since i came from [facility] 2wks or more. Need help documented in this encounter Plan of Treatment Not on file documented as of this encounter Visit Diagnoses Not on filedocumented in this encounter Care Teams Tool Distributor Relationship Specialty Start Date End Date Yolande Nicholas DO PCP - General Internal Medicine 12/03/18 10/08/20 Anuj Priest DO PCP - General Internal Medicine 10/09/[address] [place] [address], Pcp PCP - General Internal Medicine 06/17/21 documented as of this encounter
--- OUTSIDE RECORDS SUMMARY | 2024-06-12 12:29 | XMS_ITS | Encounter Summary ---
Author Organization [facility] Address [address] [place] [address] Care Team Providers Care Conductor Orchestra Name Role Phone Coleman Mccarthy MD Primary Care Provider Unavaila ble Ayo Carpio MD Primary Care Provider [phone] Annalee Jones MD Primary Care Provider Un available Yolande Nicholas DO Primary Care Pro vider Unavailable Anuj Priest DO Primary Care Provider [facility], Pcp Primary Care Provider Unavailabl e Encounter Details Date Type Department Care Team Description 05/19/2015 Family And Consumer Education Teacher Report Medical Records [address] [place] [address] Anuj Easton Social History Tobacco Use Types [...] on filedocumented in this encounter Care Teams Conductor Orchestra Relationship Specialty Start Date End Date Coleman Mccarthy MD PCP - General Internal Medicine 05/07/14 07/18/16 Ayo Carpio MD [address] [place] [address] PCP - General Internal Medicine 07/19/16 01/05/17 Annalee Jones MD [address] [place] [address] PCP - General Internal Medicine 01/06/17 12/02/18 Yolande Nicholas, [address] [place] [address] PCP - General Internal Medicine 12/03/18 10/08/20 Anuj Priest DO [address] [place] [address] PCP - General Internal Medicine 10/09/20 06/16/21 [facility], Pcp [address] [place] [address] PCP - General Internal Medicine 06/17/21 documented as of this encounter
--- OUTSIDE RECORDS SUMMARY | 2024-06-12 12:29 | XMS_ITS | Encounter Summary ---
Author Organization [facility] Address [address] [place] [address] Care Team Providers Care Body Piercer Name Role Phone Yolande Nicholas DO Primary Care Pro vider Unavailable Anuj Priest DO Primary Care Provider [facility], Pcp Primary Care Provider Unavailabl e Encounter Details Date Type Department Care Team Description 09/04/2019 Telephone Internal Medicine - [address], [address] [place] [address] Alana Stinson MD [address] [place] [id number] Social History Tobacco Use Types Packs/Day [...] PM EDT Spoke to someone from [facility] rehab they will send discharge notes. * Telephone Encounter - Alana Stinsno MD - 09/04/2019 11:48 AM EDT PLS GET DISCHARGE SUMMARY FROM [facility] IN [place], documented in this encounter Plan of Treatment Not on file documented as of this encounter Visit Diagnoses Not on filedocumented in this encounter Care Teams Body Piercer Relationship Specialty Start Date End Date Yolande Nicholas DO PCP - General Internal Medicine 12/03/18 10/08/20 Anuj Priest DO PCP - General Internal Medicine 10/09/20 [facility], Pcp PCP - General Internal Medicine 06/17/21 documented as of this encounter
--- OUTSIDE RECORDS SUMMARY | 2024-06-12 12:29 | XMS_ITS | Encounter Summary ---
Author Organization [employer] Address [address] [facility] 7[address] [place] [address] Care Team Providers Care Long Term Care Pharmacist Name Role Phone Sesar Pereyra MD Primary Care Provider [phone] Reason for Visit * Reason Onset Date Comments Med Refill 04/26/2024 Encounter Details Date Type Department Care Team ([facility] st Contact Info) Description 04/26/2024 Telephone [facility] [address] [place] [address] Sesar Pereyra MD [address] [place] [address] Med Refill Social History Tobacco Use Types [...] 7.5 MG tablet To be sent to: [facility] - [place], [place] - [address] [facility] documented in this encounter Plan of Treatment Upcoming Encounters Date Type Department Care Team (Late st Contact Info) Description 06/13/2024 1:00 PM EST Office Visit [facility] [address] [place] [address] Sesar Pereyra MD [address] [place] [address] documented as of this encounter Visit Diagnoses Not on filedocumented in this encounter Additional Health Concerns Assessment Noted Time PHQ-9 Depression Total Score: 16 024 10:59 AM EDT documented as of this encounter Care Teams Long Term Care Pharmacist Relationship Specialty Start Date End Date Sesar Pereyra MD [address] [place] [address] PCP - General Internal Medicine 03/01/21 [facility] 03/22/24 documented as of this encounter
--- OUTSIDE RECORDS SUMMARY | 2024-06-12 12:29 | XMS_ITS | Encounter Summary ---
Author Organization [facility] Address [address] [place] [address] Care Team Providers Care Window Shade Installer Name Role Phone Yolande Nicholas DO Primary Care Pro vider Unavailable Anuj Priest DO Primary Care Provider Judy Gardner, Pcp Primary Care Provider Unavailabl e Encounter Details Date Type Department Care Team Description 12/26/2019 Hospital Medical Records [address] [place] [address] Social History Tobacco Use Types Packs/Day Years [...] on filedocumented in this encounter Care Teams Window Shade Installer Relationship Specialty Start Date End Date Yolande Nicholas DO PCP - General Internal Medicine 12/03/18 10/08/20 Anuj Priest DO PCP - General Internal Medicine 10/09/20 [address] Gardner PCP - General Internal Medicine 06/17/21 documented as of this encounter
--- OUTSIDE RECORDS SUMMARY | 2024-06-12 12:29 | XMS_ITS | Encounter Summary ---
Author Organization [facility] Address [address] [place] [address] Care Team Providers Care Senior It Project Manager Name Role Phone Yolande Nicholas DO Primary Care Pro vider Unavailable Anuj Priest DO Primary Care Provider [facility], Pcp Primary Care Provider Unavailabl e Reason for Visit * Reason Onset Date Comments [facility] Call 12/28/2019 Encounter Details Date Type Department Care Team Description 12/28/2019 Telephone Adult Urgent Care - [address] [address] Yolande Nicholas DO VNA Call Social History [...] [facility]NA CALL Which [facility] office is calling? [facility] Full name of caller: Bev The [...] in this encounter Care Teams Senior It Project Manager Relationship Specialty Start Date End Date Yolande Nicholas DO PCP - General Internal Medicine 12/03/18 10/08/20 Anuj Priest DO PCP - General Internal Medicine 10/09/[address] [place] [address], Pcp PCP - General Internal Medicine 06/17/21 documented as of this encounter
--- OUTSIDE RECORDS SUMMARY | 2024-06-12 12:29 | XMS_ITS | Encounter Summary ---
Author Organization [employer] [facility] Address [address] [place] [address] Care Team Providers Care Turbine Blade Assembler Name Role Phone Ghassan Burciaga MD Primary Care Provider Unavail able Pierre Arevalo MD Primary Care Provider Judy vailable Gerson Dawson MD Primary Care Provider Unavail able [facility], Pcp Primary Care Provider Unavailabl e Coleman Mccarthy MD Primary Care Provider Unavaila Ayo Demarco MD Primary Care Provider [phone] Annalee Jones MD Primary Care Provider Un available Pascual Nicholasabela DO Primary Care Pro vider Unavailable Anuj Priest DO Primary Care Provider Judy vailable [facility], Pcp Primary Care Provider Unavailabl e Encounter Details Date Type Department Care Team Description 01/16/2007 Hospital Medical Records [address] [place] [address] Tyler Bloom MD Social History Tobacco Use [...] on filedocumented in this encounter Care Teams Turbine Blade Assembler Relationship Specialty Start Date End Date Ghassan Burciaga MD PCP - General 07/24/00 05/06/13 Pierre Arevalo MD PCP - General Internal Medicine 05/07/13 4 Gerson Dawson MD PCP - General Internal Medicine 01/30/14 03/20/14 [facility], Pcp PCP - General Internal Medicine 03/21/14 05/06/14 Coleman Mccarthy MD PCP - General Internal Medicine 05/07/14 07/18/16 Ayo Carpio MD [address] [place], [place] [id number] PCP - General Internal Medicine 07/19/16 01/05/17 Annalee Jones MD [address] [place], [place] [phone] PCP - General Internal Medicine 01/06/17 12/02/18 Yolande Nicholas, DO [address] [place] [address] PCP - General Internal Medicine 12/03/18 10/08/20 Anuj Priest, [address] [place] [address] PCP - General Internal Medicine 10/09/20 06/16/21 [facility], Pcp PCP - General Internal Medicine 06/17/21 documented as of this encounter
--- OUTSIDE RECORDS SUMMARY | 2024-06-12 12:29 | XMS_ITS | Encounter Summary ---
Author Organization [facility] Address [address] [place] [address] Care Team Providers Care Lot Boss Name Role Phone Yolande Nicholas DO Primary Care Pro vider Unavailable Anuj Priest DO Primary Care Provider Judy Gardner, Pcp Primary Care Provider Unavailabl e Encounter Details Date Type Department Care Team Description 10/23/2019 Release of Information Medical Records [address] [place] [address] Abstract, Provider Social History Tobacco Use Types [...] on filedocumented in this encounter Care Teams Lot Boss Relationship Specialty Start Date End Date Yolande Nicholas DO PCP - General Internal Medicine 12/03/18 10/08/20 Anuj Priest DO PCP - General Internal Medicine 10/09/20 2 [facility], Pcp PCP - General Internal Medicine 06/17/21 documented as of this encounter
--- OUTSIDE RECORDS SUMMARY | 2024-06-12 12:29 | XMS_ITS | Encounter Summary ---
Author Organization [facility] Address [address] [place] [address] Care Team Providers Care Blueprinting And Photocopy Supervisor Name Role Phone Ayo Carpio MD Primary Care Provider [phone] Annalee Jones MD Primary Care Provider Un available Yolande Nicholas DO Primary Care Pro vider Unavailable Anuj Priest DO Primary Care Provider [facility], [facility] Primary Care Provider Unavailabl e Encounter Details Date Type Department Care Team Description 08/05/2016 Release of Information Medical Records [address] [place] [id number] Abstract, Provider Social History Tobacco Use Types [...] on filedocumented in this encounter Care Teams Blueprinting And Photocopy Supervisor Relationship Specialty Start Date End Date Ayo Carpio MD [address] [place] [id number] PCP - General Internal Medicine 07/19/16 01/05/17 Annalee Jones MD [address] [place] [address] PCP - General Internal Medicine 01/06/17 12/02/18 Yolande Nicholas, [address] [place] [address] PCP - General Internal Medicine 12/03/18 10/08/20 Anuj Priest DO [address] [place] [address] PCP - General Internal Medicine 10/09/20 06/16/21 [facility], Pcp [address] [place] [address] PCP - General Internal Medicine 06/17/21 documented as of this encounter
--- OUTSIDE RECORDS SUMMARY | 2024-06-12 12:29 | XMS_ITS | Encounter Summary ---
Author Organization [facility] Address [address] [place] [address] Care Team Providers Care Machine Tool Operator Name Role Phone Yolande Nicholas DO Primary Care Pro vider Unavailable Anuj Priest DO Primary Care Provider [facility], Pcp Primary Care Provider Unavailabl e Reason for Visit * Reason Onset Date Comments Faxed Order 01/03/2020 Encounter Details Date Type Department Care Team Description 01/03/2020 Telephone Adult [address] [address] Yolande Nicholas DO Faxed Order Social History [...] filedocumented in this encounter Care Teams Machine Tool Operator Relationship Specialty Start Date End Date Yolande Nicholas DO PCP - General Internal Medicine 12/03/18 10/08/20 Anuj Priest DO PCP - General Internal Medicine 10/09/[address] [place] [address], Pcp PCP - General Internal Medicine 06/17/21 documented as of this encounter
--- OUTSIDE RECORDS SUMMARY | 2024-06-12 12:29 | XMS_ITS | Encounter Summary ---
Author [facility] Address [address] [place] [address] Care Team Providers Care Hogshead Hand Name Role Phone Pierre Arevalo MD Primary Care Provider Judy vailable Gerson Dawson MD Primary Care Provider Unavail able [facility], Pcp Primary Care Provider Unavailabl e Coleman Mccarthy MD Primary Care Provider Unavaila Ayo Demarco MD Primary Care Provider [phone] Annalee Jones MD Primary Care Provider Un available Yolande Nicholas DO Primary Care Pro vider Unavailable Anuj Priest DO Primary Care Provider Judy vailable [facility], Pcp Primary Care Provider Unavailabl e Reason for Visit * Reason Onset Date Comments TEST RESULTS 07/17/2013 Encounter Details Date Type Department Care Team Description 07/17/2013 Telephone Physiatry - [address] [address] Luda Jenkins PA-C TEST RESULTS Social History Tobacco Use Types Packs/Day Years Used Date Smoking Tobacco: Former Cigarettes 1 35 Q uit: 07/26/2005 Smokeless Tobacco: Never Alcohol Use Standard Drinks/Week Comments No 0 (1 standard drink = 0.6 oz pur e alcohol) prior heavy stopped 3. Sex Assigned at Date Recorded Not on file documented as of this encounter Miscellaneous Notes * Telephone Encounter - Luda Jenkins PA-C - 07/19/2013 8:47 AM EDT Patient would like to try steroid injection. * Telephone Encounter - Luda Jenkins PA-C - 07/19/2013 8:33 AM EDT I reviewed MRI results with patient and reviewed treatment options. Patient is a candidate for bilateral L4 TFE. He will call if he decides to pursue this treatment option. * Telephone Encounter - Helen MezaPFatemehNFatemeh - 07/17/2013 4:55 PM EDT Message to Katherin Note states pt can call to get MRI results Thank you * Telephone Encounter - Kira Poole - 07/17/2013 4:14 PM EDT Inform patient: ANY URGENT OR ABNORMAL RESULTS WIILL RESULT IN A CALL BACK TO THE PATIENT LASHAWN. Type of test: : MRI Date test was performed: 07/13/13 Where was the test performed: [facility] Who ordered this test?: Luda Jenkins Is the doctor here today?: YES Can the message wait until the doctor returns?: NO IF PATIENT'S PCP IS NOT IN INSTRUCT PATIENT THAT THEY WILL RECEIVE A CALL BACK WHEN THE PCP IS IN THE OFFICE NEXT. documented in this encounter Plan of Treatment Scheduled Orders Name Type Priority Associated Diagnoses Orde r Schedule PHYSIATRY PROCEDURE PHYSIATRY Routine Degenerative lumbar spinal stenosis Chronic lumbar radiculopathy Arthropathy of lumbar facet joint Ordered: 07/19/2013 documented as of this encounter Visit Diagnoses Diagnosis Chronic lumbar radiculopathy- Primary Thoracic or lumbosacral neuritis or radiculitis, unspecified Degenerative lumbar spinal stenosis Spinal stenosis, lumbar region, without neurogenic claudication Arthropathy of lumbar facet joint Lumbosacral spondylosis without myelopathy documented in this encounter Care Teams Hogshead Hand Relationship Specialty Start Date End Date Pierre Arevalo MD PCP - General Internal Medicine 05/07/13 4 Gerson Dawson MD PCP - General Internal Medicine 01/30/14 [facility]20[facility]14 [facility] PCP - General Internal Medicine 03/21/14 05/06/14 Coleman Mccarthy MD PCP - General Internal Medicine 05/07/14 07/18/16 Ayo Carpio MD [address] [place] [address] PCP - General Internal Medicine 07/19/16 01/05/17 Annalee Jones MD [address] [place] [address] PCP - General Internal Medicine 01/06/17 12/02/18 Yolande Nicholas, DO [address] [place] [address] PCP - General Internal Medicine 12/03/18 10/08/20 Anuj Priest, DO [address] [place] [address] PCP - General Internal Medicine 10/09/20 06/16/21 [facility] PCP - General Internal Medicine 06/17/21 documented as of this encounter
--- OUTSIDE RECORDS SUMMARY | 2024-06-12 12:29 | XMS_ITS | Encounter Summary ---
Author Organization [facility] Address [address] [place] [address] Care Team Providers Care Instructional Technology Teacher Name Role Phone Yolande Nicholas DO Primary Care Pro vider Unavailable Anuj Priest DO Primary Care Provider [facility], Pcp Primary Care Provider Unavaillegacy [facility] e Encounter Details Date Type Department Care Team Description 07/02/2019 Pt. Non Urgent Medic al Question Adult Medicine [address] [address] Yolande Nicholas DO Social History Tobacco Use [...] Progress Notes * Yolande Banegas DO - 07/02/2019 10:27 AM EST This has been discussed with the patient. documented in this encounter Miscellaneous Notes * Telephone Encounter - Blessing Pérez M.A. - 07/02/2019 9:52 AM ESTFrom: Alex Nettles To: Yolande Banegas DO Sent: 07/02/2019 9:52 AM EST Subject: Per refill Clonazepam 0.5mg Dr. 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 refilled by my documented in this encounter Plan of Treatment Not on file documented as of this encounter Visit Diagnoses Not on filedocumented in this encounter Care Teams Instructional Technology Teacher Relationship Specialty Start Date End Date Yolande Nicholas DO PCP - General Internal Medicine 12/03/18 10/08/20 Anuj Priest DO PCP - General Internal Medicine 10/09/[address] [place] [address], Pcp PCP - General Internal Medicine 06/17/21 documented as of this encounter
--- OUTSIDE RECORDS SUMMARY | 2024-06-12 12:29 | XMS_ITS | Encounter Summary ---
Author Organization [facility] Address [address] [place] [address] Care Team Providers Care Custom Decorating Consultant Name Role Phone Yolande Nicholas DO Primary Care Pro vider Unavailable Anuj Priest DO Primary Care Provider [facility], Pcp Primary Care Provider Unavailabl e Reason for Visit * Reason Onset Date Comments Faxed Order 01/16/2020 Encounter Details Date Type Department Care Team Description 01/16/2020 Telephone Adult Medicine [address] [address] Yolande Nicholas DO Faxed Order Social History [...] encounter Miscellaneous Notes * Telephone Encounter - Prabhakar Amaya - 01/30/2020 9:51 AM EDT Additional orders from [facility] to be signed and faxed back to [phone] * Telephone Encounter - Lucy Pardo - 01/24/2020 2:35 PM EDT More Faxed orders received from [facility], placed in providers bin for review. Please sign and fax orders to [phone]. * Telephone Encounter - Susan Calderon - 01/16/2020 12:19 PM EDT Physician order for Dr. Yolande Alvarez-Makenzie's signature - tracking # [id number] documented in this encounter Plan of Treatment Not on file documented as of this encounter Visit Diagnoses Not on filedocumented in this encounter Care Teams Custom Decorating Consultant Relationship Specialty Start Date End Date Yolande Nicholas DO PCP - General Internal Medicine 12/03/18 10/08/20 Anuj Priest DO PCP - General Internal Medicine 10/09/[address] [place] [address], Pcp PCP - General Internal Medicine 06/17/21 documented as of this encounter
--- OUTSIDE RECORDS SUMMARY | 2024-06-12 12:29 | XMS_ITS | Encounter Summary ---
Author Organization [facility] Address [address] [place] [address] Care Team Providers Care Administrative Support Assoc Name Role Phone Ayo Carpio MD Primary Care Provider [phone] Annalee Jones MD Primary Care Provider Un available Yolande Nicholas DO Primary Care Pro vider Unavailable Anju Priest DO Primary Care Provider Judy [facility], Pcp Primary Care Provider Unavailabl e Encounter Details Date Type Department Care Team Description 10/19/2016 Orders Only Adult Medicine [address] [id number] Ayo Carpio MD [address] [place] [address] [phone] Lung nodule (Primary Dx) Social History Tobacco [...] nodule documented in this encounter Care Teams Administrative Support Assoc Relationship Specialty Start Date End Date Ayo Carpio MD [address] [place] [address] [id number] PCP - General Internal Medicine 07/19/16 01/05/17 Annalee Jones MD [address] [place] [address] PCP - General Internal Medicine 01/06/17 12/02/18 Yolande Nicholas, [address] [place] [address] 290[address] PCP - General Internal Medicine 12/03/18 10/08/20 Anuj Priest DO [address] [place] [address] PCP - General Internal Medicine 10/09/20 06/16/21 [facility], Pcp [address] [place] [address] PCP - General Internal Medicine 06/17/21 documented as of this encounter
--- OUTSIDE RECORDS SUMMARY | 2024-06-12 12:29 | XMS_ITS | Encounter Summary ---
Author Organization [facility] Address [address] [place] [address] Care Team Providers Care Chief Medical Officer Name Role Phone Yolande Nicholas DO Primary Care Pro vider Unavailable Anuj Priest DO Primary Care Provider Judy Gardner, Pcp Primary Care Provider Unavailabl e Encounter Details Date Type Department Care Team Description 11/28/2019 Motorcyles Final Inspector Report Medical Records [address] [place] [address] Cedrick Siddiqui Social History Tobacco Use Types [...] on filedocumented in this encounter Care Teams Chief Medical Officer Relationship Specialty Start Date End Date Yolande Nicholas DO PCP - General Internal Medicine 12/03/18 10/08/20 Anuj Priest DO PCP - General Internal Medicine 10/09/20 2 Jj, Pcp PCP - General Internal Medicine 06/17/21 documented as of this encounter
--- OUTSIDE RECORDS SUMMARY | 2024-06-12 12:29 | XMS_ITS | Encounter Summary ---
Author Organization [facility] Address [address] [place] [address] Care Team Providers Care School Cafeteria Cook Head Name Role Phone Ayo Carpio MD Primary Care Provider [phone] Annalee Jones MD Primary Care Provider Un available Yolande Nicholas DO Primary Care Pro vider Unavailable Anuj Priest DO Primary Care Provider Judy [facility], Pcp Primary Care Provider Unavailabl e Encounter Details Date Type Department Care Team Description 10/10/2016 [facility] Medical Records [address] [place] [address] Tania Bernabe NP Social History Tobacco Use Types Packs/Day Years [...] on filedocumented in this encounter Care Teams School Cafeteria Cook Head Relationship Specialty Start Date End Date Ayo Carpio MD [address] [place] [address] PCP - General Internal Medicine 07/19/16 01/05/17 Annalee Jones MD [address] [place] [address] PCP - General Internal Medicine 01/06/17 12/02/18 Yolande Nicholas, DO [address] [place] [address] PCP - General Internal Medicine 12/03/18 10/08/20 Anuj Priest, [address] [place] [address] PCP - General Internal Medicine 10/09/20 06/16/21 [facility], [address] [address] PCP - General Internal Medicine 06/17/21 documented as of this encounter
--- OUTSIDE RECORDS SUMMARY | 2024-06-12 12:29 | XMS_ITS | Encounter Summary ---
Author Organization [facility] Address [address] [place] [address] Care Team Providers Care Hot Saw Helper Name Role Phone Yolande Nicholas DO Primary Care Pro vider Unavailable Anuj Priest DO Primary Care Provider [facility], Pcp Primary Care Provider [facility] Encounter Details Date Type Department Care Team Description 06/26/2020 Pt. Non Urgent Medic al Question Adult Medicine [address] [address] Yolande Nicholas DO Social History Tobacco Use [...] Telephone Encounter - Blessing Pérez M.A. - 06/26/2020 8:49 AM ESTFrom: Alex Nettles To: Yolande Banegas DO Sent: 06/26/2020 8:37 AM EST Subject: [facility] 0ccupational therapy Lymphadema diagnosis for a referal [id number] Alex Nettles 1945 documented in this encounter Plan of Treatment Not on file documented as of this encounter Visit Diagnoses Not on filedocumented in this encounter Care Teams Hot Saw Helper Relationship Specialty Start Date End Date Yolande Nicholas DO PCP - General Internal Medicine 12/03/18 10/08/20 Anuj Priest DO PCP - General Internal Medicine 10/09/20 2 [facility], Pcp PCP - General Internal Medicine 06/17/21 documented as of this encounter
--- OUTSIDE RECORDS SUMMARY | 2024-06-12 12:29 | XMS_ITS | Encounter Summary ---
Author Organization [employer] Address [address] [facility] [address]t [place] [address] Care Team Providers Care Float Nurse Name Role Phone Sesar Pereyra MD Primary Care Provider [phone] Encounter Details Date Type Department Care Team ([facility] st Contact Info) Description 04/29/2024 Orders Only [facility] MED & PEDS [address] [place], [place] [phone] Sesar Pereyra MD [address] [place] [address] Closed nondisplaced fracture of acromial end of [...] PM EST Office Visit [facility] MED & [facility]EDS [address] [place] [address] Sesar Pereyra MD [address] [place] [address] documented as of this encounter Visit Diagnoses Diagnosis Closed nondisplaced fracture of acromial end of right clavicle, initial encounter documented in this encounter Additional Health Concerns Assessment Noted Time PHQ-9 Depression Total Score: 16 024 10:59 AM EDT documented as of this encounter Care Teams Float Nurse Relationship Specialty Start Date End Date Sesar Pereyra MD [address] [place] [address] PCP - General Internal Medicine 03/01/21 [facility] 03/22/24 documented as of this encounter
--- OUTSIDE RECORDS SUMMARY | 2024-06-12 12:29 | XMS_ITS | Encounter Summary ---
Author Organization [employer] Address [address] [facility] 7t [place] [address] Care Team Providers Care Accounts Receivable Analyst Name Role Phone Sesar Pereyra MD Primary Care Provider [phone] Reason for Visit * Reason Onset Date Comments Med Refill 04/28/2024 Encounter Details Date Type Department Care Team ([facility] st Contact Info) Description 04/28/2024 Refill [facility] MED & PEDS [address] [place] [address] Sesar Pereyra MD [address] [place] [address] Social History Tobacco Use Types Packs/Day Years [...] Description 06/13/2024 1:00 PM EST Office Visit [facility] MED & PEDS [address] [place] [address] Sesar Pereyra MD [address] [place] [address] documented as of this encounter Visit Diagnoses Not on filedocumented in this encounter Additional Health Concerns Assessment Noted Time PHQ-9 Depression Total Score: 16 024 10:59 AM EDT documented as of this encounter Care Teams Accounts Receivable Analyst Relationship Specialty Start Date End Date Sesar Pereyra MD [address] [place] [address] PCP - General Internal Medicine 03/01/21 [facility] 03/22/24 documented as of this encounter
--- OUTSIDE RECORDS SUMMARY | 2024-06-12 12:29 | XMS_ITS | Encounter Summary ---
Author [facility] Address [address] [place] [address] Care Team Providers Care Jumpbasting Collar Baster Name Role Phone Yolande Nicholas DO Primary Care Pro vider Unavailable Anuj Priest DO Primary Care Provider Judy Gardner, Pcp Primary Care Provider Unavailabl e Encounter Details Date Type Department Care Team Description 11/08/2019 Certified Composites Technician Report Medical Records [address] [place] [address] Cedrick Siddiqui Social History Tobacco Use Types [...] on filedocumented in this encounter Care Teams Jumpbasting Collar Baster Relationship Specialty Start Date End Date Yolande Nicholas DO PCP - General Internal Medicine 12/03/18 10/08/20 Anuj Priest DO PCP - General Internal Medicine 10/09/20 2 Jj, Pcp PCP - General Internal Medicine 06/17/21 documented as of this encounter
--- OUTSIDE RECORDS SUMMARY | 2024-06-12 12:29 | XMS_ITS | Encounter Summary ---
Author Organization [employer] [facility] Address [address] [place] [address] Care Team Providers Care Outboard Motorboat Operator Name Role Phone Ghassan Burciaga MD Primary Care Provider Unavail able Pierre Arevalo MD Primary Care Provider Judy vailable Gerson Dawson MD Primary Care Provider Unavail able [facility], Pcp Primary Care Provider Unavailabl e Coleman Mccarthy MD Primary Care Provider Unavaila Ayo Demarco MD Primary Care Provider [phone] Annalee Jones MD Primary Care Provider Un available Pascual Nicholasabela DO Primary Care Pro vider Unavailable Anuj Preist DO Primary Care Provider Judy vailable [facility], Pcp Primary Care Provider Unavailabl e Encounter Details Date Type Department Care Team Description 01/19/2007 Hospital Medical Records [address] [place] [address] Cathie Hopkins Social History Tobacco Use Types [...] on filedocumented in this encounter Care Teams Outboard Motorboat Operator Relationship Specialty Start Date End Date Ghassan Burciaga MD PCP - General 07/24/00 05/06/13 Pierre Arevalo MD PCP - General Internal Medicine 05/07/13 4 Gerson Dawson MD PCP - General Internal Medicine 01/30/14 03/20/14 [facility], Pcp PCP - General Internal Medicine 03/21/14 05/06/14 Coleman Mccarthy MD PCP - General Internal Medicine 05/07/14 07/18/16 Ayo Carpio MD [address] [place], [place] [phone] PCP - General Internal Medicine 07/19/16 01/05/17 Annalee Jones MD [address] [place], [place] [phone] PCP - General Internal Medicine 01/06/17 12/02/18 Yolande Nicholas DO [address] [place] [address] PCP - General Internal Medicine 12/03/18 10/08/20 Anuj Priest DO [address] [place] [address] PCP - General Internal Medicine 10/09/20 06/16/21 [facility], Pcp PCP - General Internal Medicine 06/17/21 documented as of this encounter
--- OUTSIDE RECORDS SUMMARY | 2024-06-12 12:29 | XMS_ITS | Encounter Summary ---
Author Organization [facility] Address [address] [place] [address] Care Team Providers Care Wallpaper Consultant Name Role Phone Ghassan Burciaga MD Primary Care Provider Unavail able Pierre Arevalo MD Primary Care Provider Judy vailable Gerson Dawson MD Primary Care Provider Unavail able [facility], Pcp Primary Care Provider Unavailabl e Coleman Mccarthy MD Primary Care Provider Unavaila Ayo Demarco MD Primary Care Provider [phone] Annalee Jones MD Primary Care Provider Un available Pascual Nicholasabela DO Primary Care Pro vider Unavailable Anuj Priest DO Primary Care Provider Judy [facility], Pcp Primary Care Provider Unavailabl e Encounter Details Date Type Department Care Team Description 01/27/2009 Hospital Medical Records [address] [place] [address] Bacilio Ward MD Social History Tobacco Use [...] on filedocumented in this encounter Care Teams Wallpaper Consultant Relationship Specialty Start Date End Date Ghassan Burciaga MD PCP - General 07/24/00 05/06/13 Pierre Arevalo MD PCP - General Internal Medicine 05/07/13 4 Gerson Dawson MD PCP - General Internal Medicine 01/30/14 03/20/14 [facility], Pcp PCP - General Internal Medicine 03/21/14 05/06/14 Coleman Mccarthy MD PCP - General Internal Medicine 05/07/14 07/18/16 Ayo Carpio MD [address] [place], [place] [phone] PCP - General Internal Medicine 07/19/16 01/05/17 Annalee Jones MD [address] [place], [place] [phone] PCP - General Internal Medicine 01/06/17 12/02/18 Yolande Nicholas, DO [address] [place] [address] PCP - General Internal Medicine 12/03/18 10/08/20 Anuj Priest, [address] [place] [address] PCP - General Internal Medicine 10/09/20 06/16/21 [facility], Pcp PCP - General Internal Medicine 06/17/21 documented as of this encounter
--- OUTSIDE RECORDS SUMMARY | 2024-06-12 12:29 | XMS_ITS | Encounter Summary ---
Author Organization [facility] Address [address] [place] [address] Care Team Providers Care Glass Cut Off Tender Name Role Phone Ghassan Burciaga MD Primary Care Provider Unavail able Pierre Arevalo MD Primary Care Provider Judy vailable Gerson Dawson MD Primary Care Provider Unavail able [facility], Pcp Primary Care Provider Unavailabl e Coleman Mccarthy MD Primary Care Provider Unavaila Ayo Demarco MD Primary Care Provider [phone] Annalee Jones MD Primary Care Provider Un available Pascual Nicholasabela DO Primary Care Pro vider Unavailable Anuj Priest DO Primary Care Provider Judy vailable [facility], Pcp Primary Care Provider Unavailabl e Encounter Details Date Type Department Care Team Description 04/30/2007 Hospital Medical Records [address] [place] [address] Anuj Easton Jr. [facility] [address] [place], [place] [phone] Social History Tobacco Use Types Packs/Day Years [...] on filedocumented in this encounter Care Teams Glass Cut Off Tender Relationship Specialty Start Date End Date Ghassan Burciaga MD PCP - General 07/24/00 05/06/13 Pierre Arevalo MD PCP - General Internal Medicine 05/07/13 4 Gerson Dawson MD PCP - General Internal Medicine 01/30/14 03/20/14 [facility], Pcp PCP - General Internal Medicine 03/21/14 05/06/14 Coleman Mccarthy MD PCP - General Internal Medicine 05/07/14 07/18/16 Ayo Carpio MD [address] [place] [address] PCP - General Internal Medicine 07/19/16 01/05/17 Annalee Jones MD [address] [place] [address] PCP - General Internal Medicine 01/06/17 12/02/18 Yolande Nicholas, DO [address] [place] [address] PCP - General Internal Medicine 12/03/18 10/08/20 Anuj Priest, DO [address] [place] [address] PCP - General Internal Medicine 10/09/20 06/16/21 [facility], Pcp PCP - General Internal Medicine 06/17/21 documented as of this encounter
--- OUTSIDE RECORDS SUMMARY | 2024-06-12 12:29 | XMS_ITS | Encounter Summary ---
Author [facility] Address [address] [place] [address] Care Team Providers Care Payroll Tax Analyst Name Role Phone Pierre Areavlo MD Primary Care Provider Judy vailable Gerson Dawson MD Primary Care Provider Unavail able [facility], Pcp Primary Care Provider Unavailabl Coleman Sampson MD Primary Care Provider Unavaila Ayo Demarco MD Primary Care Provider [phone] Annalee Jones MD Primary Care Provider Un available Yolande Nicholas DO Primary Care Pro vider Unavailable Anuj Priest DO Primary Care Provider Judy [facility]ailable [facility], Pcp Primary Care Provider Unavailabl e Encounter Details Date Type Department Care Team Description 10/18/2013 Refill Medicine/Pediatrics - [address] [address] Madyson Vazquez PA-C Social History Tobacco Use [...] MG tablet [Madyson Vazquez PA-C] Preferred pharmacy: [facility] [address] [facility], [place] [address] BREANN OLIVAS Comment: To дмитрий Meyer in . [place] 4pills 100mg documented in this encounter Plan of Treatment Not on file documented as of this encounter Visit Diagnoses Not on filedocumented in this encounter Care Teams Payroll Tax Analyst Relationship Specialty Start Date End Date Pierre Arevalo MD PCP - General Internal Medicine 05/07/13 4 Gerson Dawson MD PCP - General Internal Medicine 01/30/14 03/20/14 [facility], Pcp PCP - General Internal Medicine 03/21/14 05/06/14 Coleman Mccarthy MD PCP - General Internal Medicine 05/07/14 07/18/16 Ayo Carpio MD [address] [place], [place] [phone] PCP - General Internal Medicine 07/19/16 01/05/17 Annalee Jones MD [address] [place] [address] PCP - General Internal Medicine 01/06/17 12/02/18 Yolande Nicholas, DO [address] [place] [address] PCP - General Internal Medicine 12/03/18 10/08/20 Anuj Priest, DO [address] [place] [address] PCP - General Internal Medicine 10/09/20 06/16/21 [facility], Pcp PCP - General Internal Medicine 06/17/21 documented as of this encounter
--- OUTSIDE RECORDS SUMMARY | 2024-06-12 12:29 | XMS_ITS | Encounter Summary ---
Author Organization [facility] Address [address] [place] [address] Care Team Providers Care Well Servicing Rig Operator Name Role Phone Yolande Nicholas DO Primary Care Pro vider Unavailable Anuj Priest DO Primary Care Provider [facility], Pcp Primary Care Provider Unavailabl e Reason for Visit * Reason Onset Date Comments Information Needed 09/06/2019 Encounter Details Date Type Department Care Team Description 09/06/2019 Telephone Adult [address] [address] Yolande Nicholas DO Information Needed Social History [...] Perez M.A. - 09/06/2019 2:36 PM EDT [facility] - [phone] Left detailed msg for pt to call above number to request the discharge summary, Unable to get the D/C summary through [employer] * Telephone Encounter - Judith Cardenas - 09/06/2019 10:47 AM EDT Patient's girlfriend Ame is requesting the discharge summary to be faxed to Dr. Baker to [phone] * Telephone Encounter - Sabina Zaman - 09/06/2019 9:49 AM EDT Ame, the patient girlfriend is calling stating that the patient needs the discharge summary from [facility] to sent over to [facility], to Dr. Duc Baker for his audio visit 09/06/2019 in order for the patient to continue to get prescribe his anxiety medication. Please advise. documented in this encounter Plan of Treatment Not on file documented as of this encounter Visit Diagnoses Not on filedocumented in this encounter Care Teams Well Servicing Rig Operator Relationship Specialty Start Date End Date Yolande Nicholas DO PCP - General Internal Medicine 12/03/18 10/08/20 Anuj Priest DO PCP - General Internal Medicine 10/09/[address] [place] [address], Pcp PCP - General Internal Medicine 06/17/21 documented as of this encounter
--- OUTSIDE RECORDS SUMMARY | 2024-06-12 12:29 | XMS_ITS | Clinical Summary ---
Author Organization Unknown Care Team Providers Care Academic Affairs Director Name Role Phone MARCO RAMIREZ, POOJA Unavailable Unavailabl e JIMENEZ PT, COURTNEY Unavailable Unavailable SPAFFORD OT, DAGO Unavailable Unavailable CONDINO FERNY/CALZADA, ANGUS Unavailable Unav ailable FECTEAU PLASTERER TENDER, JANETT Unavailable Unavailable LESLYE RN, DAGOBERTO Unavailable Unavailab abraham CARRION REAL ESTATE MANAGEMENT SPECIALIST, ANTONIO Unavailable Unavailable JOSE RAFAEL SKAGGSN, YORDAN Unavailable Unavail able Payers Payer Name Policy Type Policy Number Effective Date Expira tion Date [facility] [id number] Problems Condition Name Condition Details Condition Category [...] 2023-05 00:00: 00 ATHSCL HEART DISEASE OF [place] CORONARY ARTERY W/O ANG PCTRS Active 05-01 [...] mg immediate release tablet 2023-05 00:00: 00 05-16 23:59 :00 No [id number] PAIN 15 mg EVERY 6 HOURS NEEDED 15 mg EVERY 6 HOURS NEEDED (route: oral) Med Classific ation: Analgesic , Anti-infl ammatory or Antipyret ic clonazepam 0.5 mg tablet 2023-05 00:00: 00 Yes [id number] ANXIETY 0.5 mg 2 TIMES DAILY 0.5 mg 2 TIMES DAILY (route: oral) Med Classific ation: Central Nervous System Agents lisinopril 40 mg tablet 2023-05 00:00: 00 03-21 23:59 :00 No [id number] CAD 40 mg DAILY 40 mg DAILY (route: oral) Med Classific ation: Cardiovas cular Therapy Agents atorvastati n 80 mg tablet 2023-05 00:00: 00 Yes [id number] HYPERTENSIO N 80 mg DAILY 80 mg DAILY (route: oral) Med Classific ation: Cardiovas cular Therapy Agents cilostazol 50 mg tablet 2023-05 00:00: 00 Yes [id number] HYPERTENSIO N 50 mg 2 TIMES DAILY 50 mg 2 TIMES DAILY (route: oral) Med Classific ation: Hematolog ical Agents clopidogrel 75 mg tablet 2023-05 00:00: 00 03-21 23:59 :00 No [id number] CORONARY ARTERY DISEASE 75 mg DAILY 75 mg DAILY (route: oral) Med Classific ation: Hematolog ical Agents Eliquis 5 mg tablet 2023-05 00:00: 00 Yes [id number] ANTI ARRHYTHMIC 5 mg 2 TIMES DAILY 5 mg 2 TIMES DAILY (route: oral) Med Classific ation: Hematolog ical Agents furosemide 40 mg tablet 2023-05 00:00: 00 03-21 23:59 :00 No [id number] BPH 40 mg DAILY 40 mg DAILY (route: oral) Alternate Route: INTRA-MUS CULAR. Med Classific ation: Cardiovas cular Therapy Agents metoprolol tartrate 50 mg tablet 2023-05 00:00: 00 03-22 23:59 :00 No [id number] CAD 50 mg DAILY 50 mg DAILY (route: oral) Med Classific ation: Cardiovas cular Therapy Agents quetiapine 25 mg tablet 2023-05 00:00: 00 Yes [id number] MOOD STABILIZER 25 mg 2 TIMES DAILY 25 mg 2 TIMES DAILY (route: oral) Med Classific ation: Central Nervous System Agents sertraline 50 mg tablet 2023-05 00:00: 00 Yes [id number] MOOD STABILIZER 50 mg DAILY 50 mg DAILY (route: oral) Med Classific ation: Central Nervous System Agents tamsulosin 0.4 mg capsule 2023-05 00:00: 00 Yes [id number] BPH 0.4 mg DAILY 0.4 mg DAILY (route: oral) Med Classific ation: Genitouri nary Therapy docusate sodium 100 mg tablet 2023-05 00:00: 00 Yes [id number] CONSTIPATIO N 100 mg DAILY 100 mg DAILY (route: oral) Med Classific ation: Gastroint estinal Therapy Agents gabapentin 100 mg capsule 2023-05 00:00: 00 Yes [id number] PAIN 1-3 capsule BEDTIME 1-3 capsule BEDTIME (route: oral) Med Classific ation: Central Nervous System Agents metoprolol tartrate 25 mg tablet 2023-05 00:00: 00 03-27 16:09 :43.1 53 No [id number] HYPERTENSIO N 25 mg 2 TIMES DAILY 25 mg 2 TIMES DAILY (route: oral) Med Classific ation: Cardiovas cular Therapy Agents Multaq 400 mg tablet 2023-05 00:00: 00 Yes [id number] ANTIARRHYTH MICHAEL 400 mg 2 TIMES DAILY 400 mg 2 TIMES DAILY (route: oral) Med Classific ation: Cardiovas cular Therapy Agents furosemide 40 mg tablet 2023-05 00:00: 00 Yes [id number] edema 1 tablet DAILY 1 tablet DAILY (route: oral) Med Classific ation: Cardiovas cular Therapy Agents dextroamphe tamine-amph etamine 7.5 mg tablet 2023-05 00:00: 00 Yes [id number] attention 1 tablet DAILY 1 tablet DAILY (route: oral) Med Classific ation: Central Nervous System Agents metoprolol tartrate 25 mg tablet 2023-05 00:00: 00 Yes [id number] heart rate 0.5 tablet 2 TIMES DAILY 0.5 tablet 2 TIMES DAILY (route: oral) Med Classific ation: Cardiovas cular Therapy Agents cephalexin 500 mg capsule 2023-05 00:00: 00 04-10 23:59 :00 No [id number] CELLULITIS LLL 500 mg 4 TIMES DAILY 500 mg 4 TIMES DAILY (route: oral) Med Classific ation: Anti-Infe ctive Agents hydralazine 25 mg tablet 2023-05 00:00: 00 Yes [id number] HTN 25 mg 2 TIMES DAILY 25 mg 2 TIMES DAILY (route: oral) Med Classific ation: Cardiovas cular Therapy Agents Vital Signs Vital Name Observation Time Observation Value Commen ts Temperature 2024-06-11 09:50:00.000 97.6 [degF] Temperature 2024-06-04 10:04:00.000 98.2 [degF] Temperature 2024-05-28 09:15:00.000 98.6 [degF] Temperature 2024-05-21 09:14:00.000 98.6 [degF] Pulse 2024-06-11 09:50:00.000 60 /min Pulse 2024-06-04 10:04:00.000 72 /min Pulse 2024-05-28 09:15:00.000 62 /min Pulse 2024-05-21 09:14:00.000 60 /min O2 Saturation (%) 2024-06-11 09:50:00.000 98 % O2 Saturation (%) 2024-06-04 10:05:00.000 98 % O2 Saturation (%) 2024-05-28 09:16:00.000 99 % O2 Saturation (%) 2024-05-21 09:14:00.000 98 % Respirations 2024-06-11 09:50:00.000 18 /min Respirations 2024-06-04 10:04:00.000 18 /min Respirations 2024-05-28 09:15:00.000 18 /min Respirations 2024-05-21 09:14:00.000 18 /min Weight (lbs) 2024-06-11 09:54:00.000 245 [lb_av] Weight (lbs) 2024-05-28 09:23:00.000 245.5 [lb_av] Weight (lbs) 2024-05-21 09:17:00.000 245 [lb_av] Systolic Blood Pressure 2024-06-11 09:50:00.000 158 mm [Hg] Systolic Blood Pressure 2024-06-04 10:04:00.000 124 mm [Hg] Systolic Blood Pressure 2024-05-28 09:15:00.000 130 mm [Hg] Systolic Blood Pressure 2024-05-21 09:14:00.000 120 mm [Hg] Diastolic Blood Pressure 2024-06-11 09:50:00.000 80 mm [Hg] Diastolic Blood Pressure 2024-06-04 10:04:00.000 74 mm [Hg] Diastolic Blood Pressure 2024-05-28 09:15:00.000 68 mm [Hg] Diastolic Blood Pressure 2024-05-21 09:14:00.000 60 mm [Hg] Plan of Treatment Planned Activity Planned Date Details Comments Future Scheduled Test RN TO OBSE RVE, ASSESS, EVALUATE, AND DEVELOP AN INDIVIDUALIZED PLAN OF CARE. AGENCY MAY ACCEPT ORDERS FROM CONSULTING PHYSICIANS. RN TO OBSERVE AND ASSESS, CONTRACT MANAGEMENT SPECIALIST/MICRO COMPUTER DATA PROCESSOR TO OBSERVE FOR RISK FOR FALLS AND INSTRUCT IN FALL PREVENTION, HOME SAFETY, MEDICATION MANAGEMENT, INFECTION PREVENTION, AND NUTRITION MANAGEMENT. RN/CONTRACT MANAGEMENT SPECIALIST/MICRO COMPUTER DATA PROCESSOR NURSE MAY PERFORM O2 SATURATION LEVEL ON ADMISSION AND PRN FOR RN TO ASSESS/CONTRACT MANAGEMENT SPECIALIST TO OBSERVE PATIENT, WITH NOTIFICATION TO THE PHYSICIAN IF SATURATION IS 90% IN THE ABSENCE OF MORE SPECIFIC PARAMETERS FROM THE PHYSICIAN. AGENCY MAY PERFORM A RESUMPTION OF CARE VISIT FOLLOWING ANY HOSPITAL ADMISSION. RN/CONTRACT MANAGEMENT SPECIALIST/MICRO COMPUTER DATA PROCESSOR TO MONITOR CO-MORBID CONDITIONS LISTED ON THE PLAN OF CARE AND ANY NEW CONDITIONS THAT PRESENT THEMSELVES DURING THIS EPISODE TO IDENTIFY CHANGES AND INTERVENE TO MINIMIZE COMPLICATIONS. [code = RN TO OBSERVE, ASSESS, EVALUATE, AND DEVELOP AN INDIVIDUALIZED PLAN OF CARE. AGENCY MAY ACCEPT ORDERS FROM CONSULTING PHYSICIANS. RN TO OBSERVE AND ASSESS, CONTRACT MANAGEMENT SPECIALIST/MICRO COMPUTER DATA PROCESSOR TO OBSERVE FOR RISK FOR FALLS AND INSTRUCT IN FALL PREVENTION, HOME SAFETY, MEDICATION MANAGEMENT, INFECTION PREVENTION, AND NUTRITION MANAGEMENT. RN/CONTRACT MANAGEMENT SPECIALIST/MICRO COMPUTER DATA PROCESSOR NURSE MAY PERFORM O2 SATURATION LEVEL ON ADMISSION AND PRN FOR RN TO ASSESS/CONTRACT MANAGEMENT SPECIALIST TO OBSERVE PATIENT, WITH NOTIFICATION TO THE PHYSICIAN IF SATURATION IS 90% IN THE ABSENCE OF MORE SPECIFIC PARAMETERS FROM THE PHYSICIAN. AGENCY MAY PERFORM A RESUMPTION OF CARE VISIT FOLLOWING ANY HOSPITAL ADMISSION. RN/CONTRACT MANAGEMENT SPECIALIST/MICRO COMPUTER DATA PROCESSOR TO MONITOR CO-MORBID CONDITIONS LISTED ON THE PLAN OF CARE AND ANY NEW CONDITIONS THAT PRESENT THEMSELVES DURING THIS EPISODE TO IDENTIFY CHANGES AND INTERVENE TO MINIMIZE COMPLICATIONS.] Future Scheduled Test MEDICATION MANAGEMENT; RN/CONTRACT MANAGEMENT SPECIALIST/MICRO COMPUTER DATA PROCESSOR TO REVIEW MEDICATIONS FOR INTERACTIONS, EFFECTIVENESS OF DRUG THERAPY, AND SIGNS/SYMPTOMS OF ADVERSE REACTIONS. MAY INSTRUCT AND REINFORCE MEDICATION TEACHING RELATED TO THE USE OF MEDICATIONS, DOSAGE, FREQUENCY, PURPOSE, SIDE EFFECTS, AND TO REPORT COMPLICATIONS. HELP SET UP BUBBLE PACKS [code = MEDICATION MANAGEMENT; RN/CONTRACT MANAGEMENT SPECIALIST/MICRO COMPUTER DATA PROCESSOR TO REVIEW MEDICATIONS FOR INTERACTIONS, EFFECTIVENESS OF DRUG THERAPY, AND SIGNS/SYMPTOMS OF ADVERSE REACTIONS. MAY INSTRUCT AND REINFORCE MEDICATION TEACHING RELATED TO THE USE OF MEDICATIONS, DOSAGE, FREQUENCY, PURPOSE, SIDE EFFECTS, AND TO REPORT COMPLICATIONS. HELP SET UP BUBBLE PACKS] Future Scheduled Test RISK FOR H OSPITALIZATION; RN TO ASSESS/TEACH, MICRO COMPUTER DATA PROCESSOR/CONTRACT MANAGEMENT SPECIALIST TO OBSERVE/TEACH PATIENT/CAREGIVER ON RISK FOR HOSPITALIZATION/EMERGENCY ROOM VISITS, TEACH SIGNS AND SYMPTOMS THAT PUT PATIENT AT RISK, WHEN TO NOTIFY NURSE/PHYSICIAN OF COMPLICATIONS/DECLINE, AND WHEN TO CALL 911. [code = RISK FOR HOSPITALIZATION; RN TO ASSESS/TEACH, MICRO COMPUTER DATA PROCESSOR/CONTRACT MANAGEMENT SPECIALIST TO OBSERVE/TEACH PATIENT/CAREGIVER ON RISK FOR HOSPITALIZATION/EMERGENCY ROOM VISITS, TEACH SIGNS AND SYMPTOMS THAT PUT PATIENT AT RISK, WHEN TO NOTIFY NURSE/PHYSICIAN OF COMPLICATIONS/DECLINE, AND WHEN TO CALL 911.] Future Scheduled Test CARDIOVASC ULAR SYSTEM; RN TO ASSESS/TEACH, CONTRACT MANAGEMENT SPECIALIST/MICRO COMPUTER DATA PROCESSOR TO OBSERVE/TEACH RELATED TO ALTERED CARDIOVASCULAR STATUS TO MINIMIZE COMPLICATIONS AND REDUCE HOSPITALIZATION. [code = CARDIOVASCULAR SYSTEM; RN TO ASSESS/TEACH, CONTRACT MANAGEMENT SPECIALIST/MICRO COMPUTER DATA PROCESSOR TO OBSERVE/TEACH RELATED TO ALTERED CARDIOVASCULAR STATUS TO MINIMIZE COMPLICATIONS AND REDUCE HOSPITALIZATION.] Future Scheduled Test HYPERTENSI ON MANAGEMENT; RN TO ASSESS AND TEACH, CONTRACT MANAGEMENT SPECIALIST/MICRO COMPUTER DATA PROCESSOR TO OBSERVE AND TEACH WARNING SIGNS AND SYMPTOMS TO AVOID HOSPITALIZATION. [code = HYPERTENSION MANAGEMENT; RN TO ASSESS AND TEACH, CONTRACT MANAGEMENT SPECIALIST/MICRO COMPUTER DATA PROCESSOR TO OBSERVE AND TEACH WARNING SIGNS AND SYMPTOMS TO AVOID HOSPITALIZATION.] Future Scheduled Test ARRHYTHMIA MANAGEMENT; RN TO ASSESS AND TEACH, CONTRACT MANAGEMENT SPECIALIST/MICRO COMPUTER DATA PROCESSOR TO OBSERVE AND TEACH WARNING SIGNS AND SYMPTOMS TO AVOID HOSPITALIZATION. [code = ARRHYTHMIA MANAGEMENT; RN TO ASSESS AND TEACH, CONTRACT MANAGEMENT SPECIALIST/MICRO COMPUTER DATA PROCESSOR TO OBSERVE AND TEACH WARNING SIGNS AND SYMPTOMS TO AVOID HOSPITALIZATION.] Future Scheduled Test SKIN INTEG RITY RN TO ASSESS AND TEACH, CONTRACT MANAGEMENT SPECIALIST/MICRO COMPUTER DATA PROCESSOR TO OBSERVE AND TEACH INTEGUMENTARY STATUS TO IDENTIFY CHANGES AND INTERVENE TO MINIMIZE COMPLICATIONS. PROVIDE SKILLED TEACHING OF GENERAL WOUND AND SKIN CARE AND PREVENTION RELATED TO POTENTIAL FOR ALTERED SKIN INTEGRITY [code = SKIN INTEGRITY RN TO ASSESS AND TEACH, CONTRACT MANAGEMENT SPECIALIST/MICRO COMPUTER DATA PROCESSOR TO OBSERVE AND TEACH INTEGUMENTARY STATUS TO IDENTIFY CHANGES AND INTERVENE TO MINIMIZE COMPLICATIONS. PROVIDE SKILLED TEACHING OF GENERAL WOUND AND SKIN CARE AND PREVENTION RELATED TO POTENTIAL FOR ALTERED SKIN INTEGRITY ] Future Scheduled Test PAIN MANAG EMENT; RN TO ASSESS AND TEACH, MICRO COMPUTER DATA PROCESSOR/CONTRACT MANAGEMENT SPECIALIST TO OBSERVE AND TEACH AND PROVIDE EDUCATION ON PAIN MANAGEMENT TECHNIQUES. [code = PAIN MANAGEMENT; RN TO ASSESS AND TEACH, MICRO COMPUTER DATA PROCESSOR/CONTRACT MANAGEMENT SPECIALIST TO OBSERVE AND TEACH AND PROVIDE EDUCATION ON PAIN MANAGEMENT TECHNIQUES.] Future Scheduled Test FALL REDUC TION MANAGEMENT; RN TO ASSESS AND OBSERVE, CONTRACT MANAGEMENT SPECIALIST/MICRO COMPUTER DATA PROCESSOR TO OBSERVE FALL RISK FACTORS AND EDUCATE PATIENT/CAREGIVER ON STRATEGIES TO MINIMIZE THE RISK OF FALLING. [code = FALL REDUCTION MANAGEMENT; RN TO ASSESS AND OBSERVE, CONTRACT MANAGEMENT SPECIALIST/MICRO COMPUTER DATA PROCESSOR TO OBSERVE FALL RISK FACTORS AND EDUCATE PATIENT/CAREGIVER ON STRATEGIES TO MINIMIZE THE RISK OF FALLING.] Future Scheduled Test RESPIRATOR Y SYSTEM MANAGEMENT; RN TO ASSESS AND TEACH, CONTRACT MANAGEMENT SPECIALIST/MICRO COMPUTER DATA PROCESSOR TO OBSERVE AND TEACH RELATED TO ALTERED RESPIRATORY STATUS TO MINIMIZE COMPLICATIONS AND REDUCE HOSPITALIZATION. [code = RESPIRATORY SYSTEM MANAGEMENT; RN TO ASSESS AND TEACH, CONTRACT MANAGEMENT SPECIALIST/MICRO COMPUTER DATA PROCESSOR TO OBSERVE AND TEACH RELATED TO ALTERED [...] End Date/Time Encounter Type Admission Type Attending [facility] Care Department Encounter ID Discharge Date Discharge Status Discharge Condition Discharge Reason Percent Goals Met 2024-03-22 00:00:00 2024-07-19 00:00:00 Outpatient JOSE MARIARTIFIC DAGOBERTO NEIL [facility] [id number]
--- OUTSIDE RECORDS SUMMARY | 2024-06-12 12:29 | XMS_ITS | Encounter Summary ---
Author Organization [facility] Address [address] [place] [address] Care Team Providers Care Record Filing Clerk Name Role Phone Ghassan Burciaga MD Primary Care Provider Unavail able Pierre Arevalo MD Primary Care Provider Judy vailable Gerson Dawson MD Primary Care Provider Unavail able [facility], Pcp Primary Care Provider Unavailabl e Coleman Mccarthy MD Primary Care Provider Unavaila Ayo Demarco MD Primary Care Provider [phone] Annalee Jones MD Primary Care Provider Un available Pascual Nicholasabela DO Primary Care Pro vider Unavailable Anuj Priest DO Primary Care Provider Judy vailable [facility], Pcp Primary Care Provider Unavailabl e Encounter Details Date Type Department Care Team Description 08/26/2011 Top Frame Fitter Report Medical Records [address] [place] [id number] Anuj [place]on Social History Tobacco Use Types [...] on filedocumented in this encounter Care Teams Record Filing Clerk Relationship Specialty Start Date End Date Ghassan Burciaga MD PCP - General 07/24/00 05/06/13 Pierre Arevalo MD PCP - General Internal Medicine 05/07/13 4 Gerson Dawson MD PCP - General Internal Medicine 01/30/14 03/20/14 [facility], Pcp PCP - General Internal Medicine 03/21/14 05/06/14 Coleman Mccarthy MD PCP - General Internal Medicine 05/07/14 07/18/16 Ayo Carpio MD [address] [place], [place] [id number] PCP - General Internal Medicine 07/19/16 01/05/17 Annalee Jones MD [address] [place], [place] [id number] PCP - General Internal Medicine 01/06/17 12/02/18 Yolande Nicholas DO [address] [place] [address] PCP - General Internal Medicine 12/03/18 10/08/20 Anuj Priest DO [address] [place] [address] PCP - General Internal Medicine 10/09/20 06/16/21 [facility], Pcp PCP - General Internal Medicine 06/17/21 documented as of this encounter
--- OUTSIDE RECORDS SUMMARY | 2024-06-12 12:29 | XMS_ITS | Encounter Summary ---
Author Organization [facility] Address [address] [place] [address] Care Team Providers Care Mutuel Cashier Name Role Phone Pierre Mccarthy MD Primary Care Provider Judy vailable Gerson Dawson MD Primary Care Provider Unavail able [facility], Pcp Primary Care Provider Unavailabl e Coleman Mccarthy MD Primary Care Provider Unavaila Ayo Demarco MD Primary Care Provider [phone] Annalee Jones MD Primary Care Provider Un available Yolande Nicholas DO Primary Care Pro vider Unavailable Anuj Priest DO Primary Care Provider Judy vailable [facility], Pcp Primary Care Provider Unavailabl e Reason for Visit * Reason Onset Date Comments Eye Injury 01/06/2014 Encounter Details Date Type Department Care Team Description 01/06/2014 Telephone Adult [address] [address] Pierre Mccarthy MD Eye Injury Social History [...] ER. He agrees and will go to [facility]. He requested that we call [facility] and let them know that he was coming. Spoke with Dora at [facility] and told her that patientwas coming. * [...] symptoms?: 1 day PCP: Pierre Mccarthy Payor: MEDICARE-CO / Plan: MEDICARE-CO / Product Type: MEDICARE [id number] documented in this encounter Plan of Treatment Not on file documented as of this encounter Visit Diagnoses Not on filedocumented in this encounter Care Teams Mutuel Cashier Relationship Specialty Start Date End Date Pierre Mccarthy MD PCP - General Internal Medicine 05/07/13 4 Gerson Dawson MD PCP - General Internal Medicine 01/30/14 03/20/14 [facility], Pcp PCP - General Internal Medicine 03/21/14 05/06/14 Coleman Mccarthy MD PCP - General Internal Medicine 05/07/14 07/18/16 Ayo Carpio MD [address] [place] [id number] PCP - General Internal Medicine 07/19/16 01/05/17 Annalee Jones MD [address] [place], [place] [id number] PCP - General Internal Medicine 01/06/17 12/02/18 Yolande Nicholas, [address] [place], [place] [id number] PCP - General Internal Medicine 12/03/18 10/08/20 Anuj Priest DO [address] [place] [address] PCP - General Internal Medicine 10/09/20 06/16/21 [facility], Pcp PCP - General Internal Medicine 06/17/21 documented as of this encounter
--- OUTSIDE RECORDS SUMMARY | 2024-06-12 12:29 | XMS_ITS | Encounter Summary ---
Author Organization [facility] Address [address] [place] [address] Care Team Providers Care Computer Equipment Installer Name Role Phone Yolande Nicholas DO Primary Care Pro vider Unavailable Anuj Priest DO Primary Care Provider [facility], Pcp Primary Care Provider Unavailabl e Reason for Visit * Reason Onset Date Comments Faxed Order 12/20/2019 [facility] Encounter Details Date Type Department Care Team Description 12/20/2019 Telephone Adult Medicine [address] [address] Yolande Nicholas DO Faxed Order ([facility]) [...] on filedocumented in this encounter Care Teams Computer Equipment Installer Relationship Specialty Start Date End Date Yolande Nicholas DO PCP - General Internal Medicine 12/03/18 10/08/20 Anuj Priest DO PCP - General Internal Medicine 10/09/20 2 [facility], Pcp PCP - General Internal Medicine 06/17/21 documented as of this encounter
--- OUTSIDE RECORDS SUMMARY | 2024-06-12 12:29 | XMS_ITS | Encounter Summary ---
Author Organization [facility] Address [address] [place] [address] Care Team Providers Care Soda Room Operator Name Role Phone Ghassan Burciaga MD Primary Care Provider Unavail able Pierre Arevalo MD Primary Care Provider Judy vailable Gerson Dawson MD Primary Care Provider Unavail able [facility], Pcp Primary Care Provider Unavailabl e Coleman Mccarthy MD Primary Care Provider Unavaila Ayo Demarco MD Primary Care Provider [phone] Annalee Jones MD Primary Care Provider Un available Pascual Nicholasabela DO Primary Care Pro vider Unavailable Anuj Priest DO Primary Care Provider Judy vailable [facility], Pcp Primary Care Provider Unavailabl e Encounter Details Date Type Department Care Team Description 02/02/2009 Hospital Medical Records [address] [place] [address] Bacilio Ward MD Social History Tobacco Use [...] on filedocumented in this encounter Care Teams Soda Room Operator Relationship Specialty Start Date End Date Ghassan Burciaga MD PCP - General 07/24/00 05/06/13 Pierre Arevalo MD PCP - General Internal Medicine 05/07/13 4 Gerson Dawson MD PCP - General Internal Medicine 01/30/14 03/20/14 [facility], Pcp PCP - General Internal Medicine 03/21/14 05/06/14 Coleman Mccarthy MD PCP - General Internal Medicine 05/07/14 07/18/16 Ayo Carpio MD [address] [place], [place] [id number] PCP - General Internal Medicine 07/19/16 01/05/17 Annalee Jones MD [address] [place], [place] [id number] PCP - General Internal Medicine 01/06/17 12/02/18 Yolande Nicholas, DO [address] [place] [address] PCP - General Internal Medicine 12/03/18 10/08/20 Anuj Priest, [address] [place] [address] PCP - General Internal Medicine 10/09/20 06/16/21 [facility], Pcp PCP - General Internal Medicine 06/17/21 documented as of this encounter
--- OUTSIDE RECORDS SUMMARY | 2024-06-12 12:29 | XMS_ITS | Encounter Summary ---
Author Organization [facility] Address [address] [place] [address] Care Team Providers Care Snowmobile Mechanic Name Role Phone Yolande Nicholas DO Primary Care Pro vider Unavailable Anuj Priest DO Primary Care Provider Judy álvarez [facility], Pcp Primary Care Provider Unavailabl e Reason for Visit * Reason Comments E-prescribe Rx Request Encounter Details Date Type Department Care Team Description 12/25/2019 Refill Adult Medicine [address] [address] Alana Stinson MD [address] [place] [phone] E-prescribe Rx Request Social History Tobacco [...] on filedocumented in this encounter Care Teams Snowmobile Mechanic Relationship Specialty Start Date End Date Yolande Nicholsa DO PCP - General Internal Medicine 12/03/18 10/08/20 Anuj Priest DO PCP - General Internal Medicine 10/09/20 2 [facility], Pcp PCP - General Internal Medicine 06/17/21 documented as of this encounter
--- OUTSIDE RECORDS SUMMARY | 2024-06-12 12:29 | XMS_ITS | Encounter Summary ---
Author Organization [facility] Address [address] [place] [address] Care Team Providers Care Electron Beam Welder Setter Name Role Phone Yolande Nicholas DO Primary Care Pro vider Unavailable Anuj Priest DO Primary Care Provider [facility], Pcp Primary Care Provider Unavailabl e Reason for Visit * Reason Comments E-prescribe Rx Request Encounter Details Date Type Department Care Team Description 01/01/2020 Refill Adult Medicine [address] [address] Alana Stinson MD [address] [place] [phone] E-prescribe Rx Request Social History Tobacco [...] on filedocumented in this encounter Care Teams Electron Beam Welder Setter Relationship Specialty Start Date End Date Yolande Nicholas DO PCP - General Internal Medicine 12/03/18 10/08/20 Anuj Priest DO PCP - General Internal Medicine 10/09/20 [facility], Pcp PCP - General Internal Medicine 06/17/21 documented as of this encounter
--- OUTSIDE RECORDS SUMMARY | 2024-06-12 12:29 | XMS_ITS | Encounter Summary ---
Author Organization [facility] Address [address] [place] [address] Care Team Providers Care Sales Specialist Name Role Phone Ghassan Burciaga MD Primary Care Provider Unavail able Pierre Arevalo MD Primary Care Provider Judy vailable Gerson Dawson MD Primary Care Provider Unavail able [facility], Pcp Primary Care Provider Unavailabl e Coleman Mccarthy MD Primary Care Provider Unavaila Ayo Demarco MD Primary Care Provider [phone] Annalee Jones MD Primary Care Provider Un available Pascual Nicholasabela DO Primary Care Pro vider Unavailable Anuj Priest DO Primary Care Provider Judy vailable [facility], Pcp Primary Care Provider Unavailabl e Encounter Details Date Type Department Care Team Description 10/28/2011 Gun Examiner Report Medical Records [address] [place] [address] Nhan Herbert MD Social History Tobacco Use Types Packs/Day [...] on filedocumented in this encounter Care Teams Sales Specialist Relationship Specialty Start Date End Date Ghassan Burciaga MD PCP - General 07/24/00 05/06/13 Pierre Arevalo MD PCP - General Internal Medicine 05/07/13 4 Gerson Dawson MD PCP - General Internal Medicine 01/30/14 03/20/14 [facility], Pcp PCP - General Internal Medicine 03/21/14 05/06/14 Coleman Mccarthy MD PCP - General Internal Medicine 05/07/14 07/18/16 Ayo Carpio MD [address] [place], [place] [id number] PCP - General Internal Medicine 07/19/16 01/05/17 Annalee Jones MD [address] [place], [place] [id number] PCP - General Internal Medicine 01/06/17 12/02/18 Yolande Nicholas DO [address] [place] [address] PCP - General Internal Medicine 12/03/18 10/08/20 Anuj Priest DO [address] [place] [address] PCP - General Internal Medicine 10/09/20 06/16/21 [facility], Pcp PCP - General Internal Medicine 06/17/21 documented as of this encounter
--- OUTSIDE RECORDS SUMMARY | 2024-06-12 12:30 | XMS_ITS | Encounter Summary ---
Author Organization [employer] Address [address] [facility] [address] [place] [address] Care Team Providers Care V Belt Inspector Name Role Phone Sesar Pereyra MD Primary Care Provider [phone]- [phone] Reason for Referral * Consultation (Routine) - Closed Specialty Diagnoses / Procedures Referred By Contac t Referred To Contact Geriatric Medicine Diagnoses Memory disturbance Sesar Pereyra MD [address] [place] [address] Phone: tel: fax: [facility] [address] [place] [address] Phone: tel: fax: Referral ID Status Reason Start Date Expiration Date V isits Requested Visits Authorized [id number] Closed Specialty Services Required 01/11/2024 01/10/2025 1 1 Encounter Details Date Type Department Care Team (Late st Contact Info) Description 01/11/2024 Orders Only [facility] MED & PEDS [address] [place], [place] [phone] Sesar Pereyra MD [address] [place], [place] [phone] Memory disturbance (Primary Dx) Social History Tobacco [...] Description 06/13/2024 1:00 PM EST Office Visit [facility] [address] [place] [address] Sesar Pereyra MD [address] [place] [address] Scheduled Referrals Name Type Priority Associated Diagnoses Orde r Schedule Referral to Geriatrics Outpatient Referral Routine Memory disturbance Expected: 01/11/2024 (Approximate), Expires: 01/10/2025 documented as of this encounter Visit Diagnoses Diagnosis Memory disturbance- Primary Memory loss documented in this encounter Additional Health Concerns Assessment Noted Time PHQ-9 Depression Total Score: 16 024 10:59 AM EDT documented as of this encounter Care Teams V Belt Inspector Relationship Specialty Start Date End Date Sesar Pereyra MD [address] [place] [address] PCP - General Internal Medicine 03/01/21 [facility] 03/22/24 documented as of this encounter
--- OUTSIDE RECORDS SUMMARY | 2024-06-12 12:30 | XMS_ITS | Encounter Summary ---
Author Organization [employer] Address [address] [facility] 7t [place] [address] Care Team Providers Care Java Web Engineer Name Role Phone Sesar Pereyra MD Primary Care Provider [phone]- [phone] Reason for Visit * Reason Comments Med Refill Encounter Details Date Type Department Care Team ([facility] st Contact Info) Description 10/30/2023 Refill [facility] & PEDS [address] [place], [place] [phone] Sesar Pereyra MD [address] [place] [address] PVD (peripheral vascular disease) (CMS/HCC); Longstanding persistent [...] Upcoming Encounters Date Type Department Care Team ([facility] st Contact Info) Description 06/13/2024 1:00 PM EST Office Visit [facility] MED [facility] PEDS [address] [place] [address] Sesar Pereyra MD [address] [place] [address] documented as of this encounter Visit Diagnoses Diagnosis PVD (peripheral vascular disease) (CMS/HCC) Unspecified peripheral vascular disease Longstanding persistent atrial fibrillation (CMS/HCC) documented in this encounter Additional Health Concerns Assessment Noted Time PHQ-9 Depression Total Score: 16 024 10:59 AM EDT documented as of this encounter Care Teams Java Web Engineer Relationship Specialty Start Date End Date Sesar Pereyra MD [address] [place] [address] PCP - General Internal Medicine [facility]01[facility]21 [facility] documented as of this encounter
--- OUTSIDE RECORDS SUMMARY | 2024-06-12 12:30 | XMS_ITS | Encounter Summary ---
Author Organization [employer] Address [address] [facility] 7t [place] [address] Care Team Providers Care Zoology Technical Officer Name Role Phone Sesar Pereyra MD Primary Care Provider [phone]- [phone] Reason for Visit * Reason Onset Date Comments Referral 01/02/2024 Encounter Details Date Type Department Care Team ([facility] st Contact Info) Description 01/02/2024 Telephone [facility] MEDICINE [address] [place] [address] Sesar Pereyra MD [address] [place] [address] Referral Social History Tobacco Use Types Packs/Day [...] - 01/02/2024 10:48 AM EDT Tc from [place] the patients EC requesting a referral for a gerontologist and would like to be sent to at [facility] and [place] in [place] documented in this encounter Plan of Treatment Upcoming Encounters Date Type Department Care Team (Late st Contact Info) Description 06/13/2024 1:00 PM EST Office Visit [facility] MED & PEDS [address] [place] [address] Sesar Pereyra MD [address] [place] [address] documented as of this encounter Visit Diagnoses Not on filedocumented in this encounter Additional Health Concerns Assessment Noted Time PHQ-9 Depression Total Score: 16 024 10:59 AM EDT documented as of this encounter Care Teams Zoology Technical Officer Relationship Specialty Start Date End Date Sesar Pereyra MD [address] [place] [address] PCP - General Internal Medicine 03/01/21 [facility] 03/22/24 documented as of this encounter
--- OUTSIDE RECORDS SUMMARY | 2024-06-12 12:30 | XMS_ITS | Encounter Summary ---
Author Organization [facility] Address [address] [place] [address] Care Team Providers Care Dump Grader Name Role Phone Annalee Jones MD Primary Care Provider Un available Yolande Nicholas DO Primary Care Pro vider Unavailable Anuj Priest DO Primary Care Provider Judy [facility], Pcp Primary Care Provider Unavailabl e Encounter Details Date Type Department Care Team Description 11/15/2017 Refill Adult Medicine [address] [address] Annalee Jones MD Social History Tobacco Use [...] Telephone Encounter - Kira Lee M.A. - 11/15/2017 8:54 AM EDT Lab Results Component Value Date NA 146 08/10/2016 K 4.9 08/10/2016 CO2 24.3 08/10/2016 CL 106 08/10/2016 BUN 21 08/10/2016 CREAT 0.9 08/10/2016 GLU 99 08/10/2016 CA 9.4 08/10/2016 GFR > 60 08/10/2016 Pending ov with pcp 11/24/17 last ov with Valarie 07/2017 * Telephone Encounter - Kira Lee M.A. - 11/15/2017 8:54 AM EDTFrom: Alex Nettles To: Annalee Jones MD Sent: 11/15/2017 7:05 AM EDT Subject: Medication Renewal Request Original authorizing provider: MD Alex Arce would like a refill of the following medications: lisinopril (PRINIVIL,ZESTRIL) 20 MG tablet [Annalee Jones MD] Preferred pharmacy: [facility] - [facility] [place] - [address] AT Comment: would like a refill of 10 tablets of 20Mg Lisinopril Alex Nettles [address] [facility] [place] documented in this encounter Plan of Treatment Not on file documented as of this encounter Visit Diagnoses Not on filedocumented in this encounter Care Teams Dump Grader Relationship Specialty Start Date End Date Annalee Jones MD PCP - General Internal Medicine 01/06/17 9 Yolande Nicholas DO PCP - General Internal Medicine 12/03/18 10/08/20 Anuj Priest DO PCP - General Internal Medicine 10/09/20 2 [facility], Pcp PCP - General Internal Medicine 06/17/21 documented as of this encounter
--- OUTSIDE RECORDS SUMMARY | 2024-06-12 12:30 | XMS_ITS | Encounter Summary ---
Author Organization [employer] Address [address] [facility] 7t [place] [address] Care Team Providers Care Lace Winder Name Role Phone Sesar Pereyra MD Primary Care Provider +1- [phone] Encounter Details Date Type Department Care Team ([facility] st Contact Info) Description 04/01/2024 Orders Only [facility] MED & PEDS [address] [place], [place] [phone] Sesar Pereyra MD [address] [place] [address] Essential hypertension (Primary Dx) Social History Tobacco [...] Upcoming Encounters Date Type Department Care Team ([facility] st Contact Info) Description 06/13/2024 1:00 PM EST Office Visit [facility] MED & PEDS [address] [place] [address] Sesar Pereyra MD [address] [place] [address] documented as of this encounter Visit Diagnoses Diagnosis Essential hypertension- Primary Unspecified essential hypertension documented in this encounter Additional Health Concerns Assessment Noted Time PHQ-9 Depression Total Score: 16 024 10:59 AM EDT documented as of this encounter Care Teams Lace Winder Relationship Specialty Start Date End Date Sesar Pereyra MD [address] [place] [address] PCP - General Internal Medicine 03/01/21 [facility] documented as of this encounter
--- OUTSIDE RECORDS SUMMARY | 2024-06-12 12:30 | XMS_ITS | Encounter Summary ---
Author Organization [employer] Address [address] [facility] 7t [place] [address] Care Team Providers Care Template Worker Name Role Phone Sesar Pereyra MD Primary Care Provider +1- [phone] Encounter Details Date Type Department Care Team ([facility] st Contact Info) Description 11/01/2023 Orders Only [facility] MED & PEDS [address] [place], [place] [phone] Sesar Pereyra MD [address] [place] [address] Social History Tobacco Use Types Packs/Day Years [...] [facility] [address] [place] [address] Sesar Pereyra MD [address] [place] [address] documented as of this encounter Visit Diagnoses Not on filedocumented in this encounter Additional Health Concerns Assessment Noted Time PHQ-9 Depression Total Score: 16 024 10:59 AM EDT documented as of this encounter Care Teams Template Worker Relationship Specialty Start Date End Date Sesar Pereyra MD [address] [place] [address] PCP - General Internal Medicine 03/01/21 [facility] 03/22/24 documented as of this encounter
--- OUTSIDE RECORDS SUMMARY | 2024-06-12 12:30 | XMS_ITS | Encounter Summary ---
Author Organization [facility] Address [address] [place] [address] Care Team Providers Care Varsity Baseball Coach Name Role Phone Yolande Nicholas DO Primary Care Pro vider Unavailable Anuj Priest DO Primary Care Provider [facility], Pcp Primary Care Provider Unavailabl e Reason for Visit * Reason Onset Date Comments Faxed Order 03/08/2020 Encounter Details Date Type Department Care Team Description 03/08/2020 Telephone Adult Medicine [address] [address] Yolande Nicholas DO Faxed Order Social History [...] review, sign, date, and fax back to [phone] * Telephone Encounter - Gerri Parra - 03/08/2020 2:16 PM EST [facility] IS FAXING ORDERS TO BE SIGN AND FAX BACK TO [phone]. documented in this encounter Plan of Treatment Not on file documented as of this encounter Visit Diagnoses Not on filedocumented in this encounter Care Teams Varsity Baseball Coach Relationship Specialty Start Date End Date Yolande Nicholas DO PCP - General Internal Medicine 12/03/18 10/08/20 Anuj Priest DO PCP - General Internal Medicine 10/09/[address] [place] [address], Pcp PCP - General Internal Medicine 06/17/21 documented as of this encounter
--- OUTSIDE RECORDS SUMMARY | 2024-06-12 12:30 | XMS_ITS | Encounter Summary ---
Author Organization [employer] Address [address] [facility] 7[address] [place] [address] Care Team Providers Care Adoption Worker Name Role Phone Sesar Pereyra MD Primary Care Provider +1- [phone] Reason for Visit * Reason Comments Med Refill Encounter Details Date Type Department Care Team ([facility] st Contact Info) Description 08/29/2023 Refill [facility] [address] [place] [address] Sesar Pereyra MD [address] [place] [address] Social History Tobacco Use Types Packs/Day Years [...] [facility] MED & PEDS [address] [place] [address] Sesar Pereyra MD [address] [place] [address] documented as of this encounter Visit Diagnoses Not on filedocumented in this encounter Additional Health Concerns Assessment Noted Time PHQ-9 Depression Total Score: 16 024 10:59 AM EDT documented as of this encounter Care Teams Adoption Worker Relationship Specialty Start Date End Date Sesar Pereyra MD [address] [place] [address] PCP - General Internal Medicine 03/01/21 [facility] documented as of this encounter
--- OUTSIDE RECORDS SUMMARY | 2024-06-12 12:30 | XMS_ITS | Encounter Summary ---
Author Organization [facility] Address [address] [place] [address] Care Team Providers Care Semiautomatic Taper Operator Name Role Phone Yolande Nicholas DO Primary Care Pro vider Unavailable Anuj Priest DO Primary Care Provider Judy álvarez [facility], Pcp Primary Care Provider Unavailabl e Encounter Details Date Type Department Care Team Description 09/07/2020 Dusting And Brushing Machine Operator Report Medical Records [address] [place] [address] Dhruv Garcia MD Social History Tobacco Use [...] on filedocumented in this encounter Care Teams Semiautomatic Taper Operator Relationship Specialty Start Date End Date Yolande Nicholas DO PCP - General Internal Medicine 12/03/18 10/08/20 Anuj Priest DO PCP - General Internal Medicine 10/09/20 Molly [facility], Pcp PCP - General Internal Medicine 06/17/21 documented as of this encounter
--- OUTSIDE RECORDS SUMMARY | 2024-06-12 12:30 | XMS_ITS | Encounter Summary ---
Author Organization [facility] Address [address] [place] [address] Care Team Providers Care Gasoline Pump Installer Name Role Phone Yolande Nicholas DO Primary Care Pro vider Unavailable Anuj Priest DO Primary Care Provider [facility], Pcp Primary Care Provider Unavailabl e Reason for Visit * Reason Onset Date Comments Faxed Order 08/25/2020 Encounter Details Date Type Department Care Team Description 08/25/2020 Telephone Adult [address] [address] Yolande Nicholas DO Faxed Order Social History [...] * Telephone Encounter - Gerri Parra - 08/25/2020 3:07 PM EDT [facility] IS FAXING ORDERS TO BE SIGN AND FAX BACK TO [phone]. documented in this encounter Plan of Treatment Not on file documented as of this encounter Visit Diagnoses Not on filedocumented in this encounter Care Teams Gasoline Pump Installer Relationship Specialty Start Date End Date Yolande Nicholas DO PCP - General Internal Medicine 12/03/18 10/08/20 Anuj Priest DO PCP - General Internal Medicine 10/09/20 [facility], Pcp PCP - General Internal Medicine 06/17/21 documented as of this encounter
--- OUTSIDE RECORDS SUMMARY | 2024-06-12 12:30 | XMS_ITS | Clinical Summary ---
Author Organization [employer] Address [address] [facility] 7t [place] [address] Care Team Providers Care Potable Water Treatment Operator Name Role Phone Sesar Pereyra MD [...] order (will not trigger notification to Pharmacy)) Active Problems Problem Noted Date Diagnosed Date [...] considered Sleep disorder 02/02/2015 Overview (01/22/2024): Saw [facility] sleep on 01/15/2015: Dr. Johnson Likely DILLAN sleep study ordered. Given that he has RLS, He may have periodic limb movement disorder which can be checked for in the study. Check ferritin. Will await sleep study. Depression with anxiety 04/01/2014 Overview (06/16/2022): [facility] Is going to establish care at [...] Sees this doctor once a year at [facility]. Follows up with this facility every 6 months. Pure hypercholesterolemia 07/24/2009 Thoracic aortic aneurysm (TAA) 03/11/2009 Overview (01/22/2024): IMO update Seen by [facility]. 4.[address] 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 07/14/2005 Overview (01/22/2024): Stent on right and fem- fem bypass on left IMO update Depressive disorder 07/14/2005 Alcohol abuse, in remission 06/19/2005 Encounters Date Type Department Care Team Description 05/30/2024 Telephone [facility] [address] [place] [address] Sesar Pereyra MD Lab Orders; Referral 05/30/2024 Telephone [facility] [address] [place] [address] Sesar Pereyra MD 05/28/[address] [address] Sesar Pereyra MD fyi 05/27/2024 Refill [facility] [address] [place] [address] Sesar Pereyra MD 05/23/2024 Telephone [facility] [address] [place] [address] Sesar Pereyra MD Medication Question 05/15/2024 Telephone [facility] [address] [facility] [place] [address] Sesar Pereyra MD 05/09/2024 Telephone [facility] [address] [place] [address] Verona Thompson RN 05/07/2024 9:15 AM EST Office Visit [facility] [address] [place] [address] Natasha Jiang MD Kidney stone (Primary Dx) 05/07/2024 Telephone [facility] [address] [place] [address] Natasha Jiang MD Medication Question 05/07/2024 Orders Only [facility] [address] [place] [address] Natasha Jiang MD 05/07/2024 Travel 05/06/2024 Telephone [facility] [address] [place] [address] Sesar Pereyra MD Nurse Triage 04/30/2024 Refill [facility] [address] [place] [address] Sesar Pereyra MD Longstanding persistent atrial fibrillation (CMS/HCC); PVD (peripheral vascular disease) (CMS/HCC) 04/29/2024 Orders Only [facility] [address] [place] [address] Sesar Pereyra MD Closed nondisplaced fracture of acromial end of right clavicle, initial encounter 04/29/2024 Telephone [facility] [address] [place] [address] Sesar Pereyra MD Nurse Triage 04/28/2024 Refill [facility] [address] [place] [address] Sesar Pereyra MD 04/26/2024 Refill [facility] [address] [place] [address] Sesar Pereyra MD Closed nondisplaced fracture of acromial end of right clavicle, initial encounter 04/26/2024 Telephone [facility] [address] [place] [address] Sesar Pereyra MD Med Refill 04/18/2024 Refill [facility] [address] [place] [address] Loyda Jacobson, CLAUDIA Essential hypertension; Closed nondisplaced fracture of acromial end of right clavicle, initial encounter 04/18/2024 Telephone [facility] [address] [place] [address] Sesar Pereyra MD Med Refill 04/11/2024 Refill [facility] [address] [place] [address] Sesar Pereyra MD 04/11/2024 Refill [facility] [address] [place] [address] Natasha Jiang MD Closed nondisplaced fracture of acromial end of right clavicle, initial encounter 04/11/2024 Travel 04/10/[address] [address] Sesar Pereyra MD Closed nondisplaced fracture of acromial end of right clavicle, initial encounter 04/10/[address] [address] Sesar Pereyra MD Med Refill 04/03/2024 3:00 PM EST Office Visit [facility] [address] [place] [address] Lauren Vogel MD Cellulitis of left lower extremity (Primary Dx) 04/03/[address] [address] Sesar Pereyra MD Nurse Triage 04/02/[address] [address] Sesar Pereyra MD callback number; Medication Question 04/02/[address] [address] Sesar Pereyra MD Closed nondisplaced fracture of acromial end of right clavicle, initial encounter 04/02/[address] [address] Sesar Pereyra MD Med Refill 04/02/2024 Orders Only [facility] [address] [place] [address] ProviderJazmyn MD 04/01/2024 Orders Only [facility] [address] [place] [address] Sesar Pereyra MD Essential hypertension (Primary Dx) 03/27/2024 9:15 AM EST Office Visit [facility] [address] [place] [address] Sesar Pereyra MD Acute kidney injury (CMS/HCC) (Primary Dx); Closed nondisplaced fracture of acromial end of right clavicle, initial encounter; Longstanding persistent atrial fibrillation (CMS/HCC); Dizziness; Bradycardia 03/27/2024 Telephone [facility] [address] [place] [address] Analilia Mart, CLAUDIA Plan of care 03/27/2024 Travel 03/25/2024 Telephone [facility] [address] [place] [address] Sesar Pereyra MD Chart Prep 03/22/2024 Telephone [facility] [address] [place] [address] Sesar Pereyra MD Nurse Triage 03/15/2024 Telephone [facility] [address] [place] [address] Sesar Pereyra MD ER Follow-up 03/15/2024 Travel 03/14/2024 Orders Only GENERIC EXTERNAL DATA DEPARTMENT Provider, Generic External Data 03/13/2024 9:00 AM EST Office Visit [facility] [address] [place] [address] Sesar Pereyra MD Essential hypertension (Primary Dx); Longstanding persistent atrial fibrillation (CMS/HCC) 03/13/2024 Travel 03/12/2024 Orders Only GENERIC EXTERNAL DATA DEPARTMENT Provider, Generic External Data 03/12/2024 Telephone [facility] [address] [place] [address] Sesar Pereyra MD Chart Prep from Last 3 Months Immunizations Name Administration [...] 1:00 PM EST Office Visit [facility] [address] [place] [address] Sesar Pereyra MD [address] [place] [address] Health Maintenance Due Date Last Done Comments [...] EST Narrative 05/07/2024 10:48 AM EST ? [facility] ?[address] ?[place] [address] ?XRay Report ? Signed ? Patient: Tho,Alex ?MR#: [id number] ?? [id number] ? : 1945 ?Acct:[id number] ? Age/Sex: 79 / M ?ADM Date: 05/07/ ? Loc: HO.XRAY ? Attending Dr: Natasha Jiang MD ? Ordering Physician: Natasha Jiang MD ?? Date of Service: 05/07/24 ?? Procedure(s): XR KUB ?? Accession Number(s): [id number] ? cc: Sesar Pereyra MD; Natasha Jiang [...] DD/ 1021 ? TD/TT: 05/07/24 1040 ? Preschool Assistant Teacher: ? Procedure Note Hernandez, Image - 05/07/[address] [address] XRay Report Signed Patient: Ronald Nettles#: [id number] : 1945cct:[id number] Age/Sex: 79 / MADM Date: 05/07/24 Loc: BEBETO Attending Dr: Natasha Jiang MD Ordering Physician: Natasha Jiang MD Date of Service: 05/07/24 Procedure(s): XR KUB Accession Number(s): [id number] cc: Sesar Pereyra MD; Natasha Jiang MD [...] 05/07/24 1045 DD/ 1021 TD/TT: 05/07/24 1040 Preschool Assistant Teacher: Natasha Jiang MD IMG XR PROCEDURES Edited [...] EST Heart rate 48 bpm. ??Sinus rhythm. ??Jefferson: 0 degrees. ??No sign of left atrial enlargement or right atrial enlargement. ??No sign of hypertrophy. ?? T wave inversion in aVL and aVF Sesar Pereyra MD ECG ORDERABLES Final Resul t * (ABNORMAL) Basic Metabolic Panel (03/27/2024 11:00 AM EST) Sodium 141 135 - 145 mmol/L [facility] Potassium 4.8 3.3 - 5.1 mmol/L [facility] Comment:Slight Hemolysis.Int erpret result with caution. Chloride 109(H) 96 - 108 mmol/L [facility] Carbon Dioxide 21(L) 22 - 29 mmol/L [facility] Anion Gap 16 12 - 20 [facility] Urea Nitrogen (BUN) 21(H) 9 - 16 mg/dL [facility] Creatinine, Serum 1.25 0.5 - 1.4 mg/dL [facility] Estimated Glomerular Filt Rate 56 [facility] Comment:Chronic Kidney Disea se: Estimated GFR < 60 mL/min/1.72g6Usdoli Kidney Disease: Estimated GFR < 15 mL/min/1.73m2 Glucose 83 60 - 115 mg/dL [facility] Calcium 9.4 8.4 - 10.2 mg/dL [facility] Blood Venous blood specimen / Unknown 03/27/2024 11:00 AM EST 03/27/2024 2:18 PM EST us Sesar Pereyra MD LAB BLOOD ORDERABLES Final Result [facility] [address] [place] [phone] * (ABNORMAL) Comprehensive Metabolic Panel (03/14/2024 8:33 AM EST) Sodium 143 135 - 145 mmol/L [facility] Potassium 4.2 3.3 - 5.1 mmol/L [facility] Chloride 108 96 - 108 mmol/L [facility] Carbon Dioxide 27 22 - 29 mmol/L [facility] Anion Gap 12 12 - 20 [facility] Urea Nitrogen (BUN) 16 9 - 16 mg/dL [facility] Creatinine, Serum 1.53(H) 0.5 - 1.4 mg/dL [facility] Creatinine Clr Calc Pharmacy 52.0 [facility] Comment:eGFR (calculated fro m the MDRD study equation) and eCrCl(calculated from the Cockcroft-Gault equation) are based ondifferent parameters and may not yield comparable results.If eCrCl result is absurd, please check patient'sheight/weight. Estimated Glomerular Filt Rate 44 [facility] Comment:Chronic Kidney Disea se: Estimated GFR < 60 mL/min/1.04l4Ljpwbq Kidney Disease: Estimated GFR < 15 mL/min/1.73m2 Glucose 92 60 - 115 mg/dL [facility] Calcium 9.1 8.4 - 10.2 mg/dL [facility] Bilirubin, Total 0.5 0.0 - 1.0 mg/dL [facility] Aspartate Amino Transferase 23 5 - 37 U/L [facility] Alanine Aminotransferase 19 0 - 40 U/L [facility] Total Protein 6.5 6.5 - 8.0 g/dL [facility] Albumin Level 3.8 3.5 - 5.0 g/dL [facility] Alkaline Phosphatase 102 39 - 117 U/L [facility] 03/14/2024 8:33 AM EST 03/14/2024 8:39 AM EST us Generic External Data Provider LAB BLOOD ORDERAB LES Final Result Performing Organization Address City/State/[facility] Co de Phone Number [facility] [address] [place] [address] [phone] * XR Chest 1 View (03/12/2024 9:51 PM EST) Anatomical Region Laterality Modality Chest Radiographic Homa ging 03/12/2024 9:51 PM EST Narrative 03/12/2024 11:02 PM EST ? [facility] ?[address] ?[place] [address] ?XRay Report ? Signed ? Patient: Tho,Alex ?MR#: [id number] ?? [id number] ? : 1945 ?Acct:[id number] ? Age/Sex: 79 / M ?ADM Date: 11/12/24 ? Loc: HO.ED ? Attending Dr: ? Ordering Physician: Vincent Short MD ?? Date of Service: 03/12/24 ?? Procedure(s): XR chest 1V ?? Accession Number(s): [id number] ? cc: Sesar Pereyra MD; Vincent Short [...] signed by Quentin Truong MD in OV> ?03/12/242258 ? DD/ 2151 ? TD/TT: 03/12/247 ? Preschool Assistant Teacher: BA ? Procedure Note Donottaylorinterpreter, Image - 03/12/2024 [place] [address] XRay Report Signed Patient: Ronald Nettles#: [id number] : 1945cct:[id number] Age/Sex: 79 / MADM Date: 03/12/24 Loc: HO.ED Attending Dr: Ordering Physician: Vincent Short MD Date of Service: 03/12/24 Procedure(s): XR chest 1V Accession Number(s): [id number] cc: Sesar Pereyra MD; Vincent Short MD [...] Quentin Truong MD 03/12/2024 10:59 PM EST Dictated By: Quentin Truong MD Signed By: <Electronically signed by Quentin Truong MD in OV> 03/12/242258 DD/ 50 TD/TT: 03/12/242216 Preschool Assistant Teacher: SHANNAN [facility] External Provider IMG XR PROCEDURES Edited Result - Final * (ABNORMAL) Urinalysis, Complete, with Reflex to Culture (03/12/2024 9:50 PM EST) Color Urine Yellow [facility] Appearance Urine Clear [facility] PH 6.5 5.0 - 9.0 [facility] Glucose Urine UA Negative Negative mg/dL [facility] Urine Blood Negative Negative [facility] Specific [place] - Urine <=1.005 1.005 - 1.025 [facility] Urine Protein 100 (2+)(A) Neg-Trace mg/dL [facility] Urine Ketones Negative Negative mg/dL [facility] Nitrite Urine Negative Negative [facility] Leukocyte Esterase Urine Negative Negative [facility] RBC Urine 0-2 0 - 2 /HPF [facility] Urine WBC 0-5 0 - 5 /HPF [facility] Urine Squamous Epithelial Cell 0-2 0 - 2 /HPF [facility] Urine Bacteria None Seen None Seen [facility] Hyaline Casts, Urine 0-2 0 - 2 /LPF [facility] 03/12/2024 9:50 PM EST 03/12/2024 9:54 PM EST Narrative [facility] - 03/12/2024 10:09 PM EST Urine, Clean Catch Generic External Data Provider LAB URINE ORDERAB LES Final Result [facility] [address] [place] [phone] * Hepatitis C Ab (07/19/2023 11:42 AM EDT) Hepatitis C Antibody Nonreactive Nonreactive [facility] Comment:Antibodies to HCV no t detected; does not exclude early acuteHCV infection. Blood Venous blood specimen / Unknown 07/19/2023 11:42 AM EDT 07/19/2023 2:25 PM EDT us Sesar Pereyra MD LAB BLOOD ORDERABLES Final Result [facility] [address] [place] [phone] * (ABNORMAL) LIPID PANEL, STANDARD (03/05/2021 9:16 AM EDT) Chol/HDLC Ratio 4.1 <5.0 (calc) [facility] [...] ?? LDL-C is now calculated using the Ulisses-Chao ?? calculation, which is a validated novel method providing ?? better accuracy than the Friedewald equation in the ?? estimation of LDL-C. ?? Ulisses MCDANIEL et al. MANDEEP. 2013;310(19): 9438-9630 ?? (http://education.Interface21.[employer] Exhibition Display/faq/LGV003) Non-HDL Cholesterol 104 <130 mg/dL (calc) [facility] [...] Pereyra MD LAB BLOOD ORDERABLES Final Result [facility] [address] from Last 3 Months or Most Recently Relevant to Health Maintenance Insurance [employer] MEDICARE REPLACEMENT [facility] FULL Care Teams Potable Water Treatment Operator Relationship Specialty Start Date End Date Sesar Pereyra MD [address] [place] [address] PCP - General Internal Medicine 03/01/21 [facility] 03/22/24
--- OUTSIDE RECORDS SUMMARY | 2024-06-12 12:30 | XMS_ITS | Encounter Summary ---
Author Organization [facility] Address [address] [place] [address] Care Team Providers Care Educational Institution Curator Name Role Phone Annalee Jones MD Primary Care Provider Un available Yolande Nicholas DO Primary Care Pro vider Unavailable Anuj Priest DO Primary Care Provider Judy vailable Jj, Pcp Primary Care Provider Unavailabl e Encounter Details Date Type Department Care Team Description 08/01/2018 Transfer Records Medical Records [address] [place] [address] Abstract, Provider Social History Tobacco Use Types [...] on filedocumented in this encounter Care Teams Educational Institution Curator Relationship Specialty Start Date End Date Annalee Jones MD PCP - General Internal Medicine 01/06/17 9 Yolande Nicholas DO PCP - General Internal Medicine 12/03/18 10/08/20 Anuj Priest DO PCP - General Internal Medicine 10/09/20 2 Jj, Pcp PCP - General Internal Medicine 06/17/21 documented as of this encounter
--- OUTSIDE RECORDS SUMMARY | 2024-06-12 12:30 | XMS_ITS | Encounter Summary ---
Author [facility] Address [address] [place] [address] Care Team Providers Care Cutting And Printing Machine Operator Name Role Phone Yolande Nicholas DO Primary Care Pro vider Unavailable Anuj Priest DO Primary Care Provider [facility], Pcp Primary Care Provider Unavailabl e Reason for Visit * Reason Onset Date Comments Faxed Refill 08/13/2020 Melatonin 3 MG T ab Encounter Details Date Type Department Care Team Description 08/13/2020 Telephone Adult [address] [address] Yolande Nicholas DO Faxed Refill (Melatonin 3 MG Tab) Social History Tobacco Use Types Packs/Day Years [...] Telephone Encounter - Blessing Pérez M.A. - 08/19/2020 8:57 AM EDT Last office visit 06/29/20 Last office visit with pcp 06/01/20 Will you write for melatonin? * Telephone Encounter - Anette King C.M.A - 08/13/2020 10:15 AM EDT Melatonin originally prescribed by LYNNETTE and last prescribed in 2016. Called pt at [phone], phone continuously busy. * Telephone Encounter - Christel Gamez - 08/13/2020 8:44 AM EDT Patient would like script to be: E-PRESCRIBED/FAXED TO PHARMACY When was the patients last office visit in Adult Medicine?: 06/29/20 When was the last time the patient saw their PCP? 06/01/20 Does patient have an upcoming appointment? My chart message has been sent to patient (THE MEDICATION IS NOT ON THE MED LIST AND IS IDENTIFIED BELOW): {MED LIST:[id number]) Med name: Melatonin 3 MG Tab Dosage: 3 mg tab # of tablets: Local pharmacy with request for 30 -day supply Instructions: Take one tablet by mouth daily at bedtime for sleep Did you check the pharmacy information above?: YES Patients current insurance carrier: [facility] / Plan: MEDICARE FFS $0 KARI MESA [id number] / Product Type: MEDICARE [id number] documented in this encounter Plan of Treatment Not on file documented as of this encounter Visit Diagnoses Not on filedocumented in this encounter Care Teams Cutting And Printing Machine Operator Relationship Specialty Start Date End Date Yolande Nicholas DO PCP - General Internal Medicine 12/03/18 10/08/20 Anuj Priest DO PCP - General Internal Medicine 10/09/20 2 [facility], Pcp PCP - General Internal Medicine 06/17/21 documented as of this encounter
--- OUTSIDE RECORDS SUMMARY | 2024-06-12 12:30 | XMS_ITS | Encounter Summary ---
Author Organization [employer] Address [address] [facility] 7t [place] [address] Care Team Providers Care Pipe Organ Installer Name Role Phone Sesar Pereyra MD Primary Care Provider [phone] Encounter Details Date Type Department Care Team ([facility] st Contact Info) Description 05/15/2024 Telephone [facility] [address] [place], [place] [phone] Sesar Pereyra MD [address] [place] [address] Social History Tobacco Use Types Packs/Day Years [...] list. If any questions contact Adilia at [phone] documented in this encounter Plan of Treatment Upcoming Encounters Date Type Department Care Team (Late st Contact Info) Description 06/13/2024 1:00 PM EST [facility] [address] [place] [address] Sesar Pereyra MD [address] [place] [address] documented as of this encounter Visit Diagnoses Not on filedocumented in this encounter Additional Health Concerns Assessment Noted Time PHQ-9 Depression Total Score: 16 024 10:59 AM EDT documented as of this encounter Care Teams Pipe Organ Installer Relationship Specialty Start Date End Date Sesar Pereyra MD [address] [place] [address] PCP - General Internal Medicine 03/01/21 [facility] 03/22/24 documented as of this encounter
--- OUTSIDE RECORDS SUMMARY | 2024-06-12 12:30 | XMS_ITS | Encounter Summary ---
Author Organization [employer] Address [address] [facility] 7t [place] [address] Care Team Providers Care Sales Advisor Name Role Phone Sesar Pereyra MD Primary Care Provider [phone] Reason for Visit * Reason Onset Date Comments Nurse Triage 11/20/2023 Encounter Details Date Type Department Care Team ([facility] st Contact Info) Description 11/20/[address] [facility] MED[facility]INE [address] [place] [address] Sesar Pereyra MD [address] [place] [address] Nurse Triage Social History Tobacco Use Types [...] for pt to call back. Checked both [place] [facility] records and no reports of recent [...] caller accepted this outcome Please contact at [phone] documented in this encounter Plan of Treatment Upcoming Encounters Date Type Department Care Team (Late st Contact Info) Description 06/13/2024 1:00 PM EST Office Visit [facility] PEDS [address] [place] [address] Sesar Pereyra MD [address] [place] [address] documented as of this encounter Visit Diagnoses Not on filedocumented in this encounter Additional Health Concerns Assessment Noted Time PHQ-9 Depression Total Score: 16 024 10:59 AM EDT documented as of this encounter Care Teams Sales Advisor Relationship Specialty Start Date End Date Sesar Pereyra MD [address] [place] [address] PCP - General Internal Medicine 03/01/21 [facility] 03/22/24 documented as of this encounter
--- OUTSIDE RECORDS SUMMARY | 2024-06-12 12:30 | XMS_ITS | Encounter Summary ---
Author Organization [facility] Address [address] [place] [address] Care Team Providers Care Tray Packer Name Role Phone Annalee Jones MD Primary Care Provider Un available Yolande Nicholas DO Primary Care Pro vider Unavailable Anuj Priest DO Primary Care Provider [facility], Pcp Primary Care Provider Unavailabl e Encounter Details Date Type Department Care Team Description 11/14/2017 Pt. Non Urgent Medic al Question Adult Medicine [address] [address] Annalee Jones MD Social History Tobacco Use Types Packs/Day Years Used Date Smoking Tobacco: Former Cigarettes 1 35 Q uit: 07/26/2005 Smokeless Tobacco: Never Alcohol Use Standard Drinks/Week Comments No 0 (1 standard drink = 0.6 oz pur e alcohol) prior heavy stopped 3. Sex Assigned at Date Recorded Not on file documented as of this encounter Progress Notes * Kira Lee M.A. - 11/14/2017 10:54 AM EDTFrom: Alex Nettles To: Annalee Jones MD Sent: 11/14/2017 10:50 AM EDT Subject: sildenafil 20MG Refill of sildenafil 20Mg 10 Qty. Sent to [facility] y [address] [facility] [address] Tele [phone] documented in this encounter Plan of Treatment Not on file documented as of this encounter Visit Diagnoses Not on filedocumented in this encounter Care Teams Tray Packer Relationship Specialty Start Date End Date Annalee Jones MD PCP - General Internal Medicine 01/06/17 9 Yolande Nicholas DO PCP - General Internal Medicine 12/03/18 10/08/20 Anuj Priest DO PCP - General Internal Medicine 10/09/20 2 [facility], Pcp PCP - General Internal Medicine 06/17/21 documented as of this encounter
--- OUTSIDE RECORDS SUMMARY | 2024-06-12 12:30 | XMS_ITS | Encounter Summary ---
Author Organization [employer] Address [address] [facility] 7t [place] [address] Care Team Providers Care Academic Associate Name Role Phone Sesar Pereyra MD Primary Care Provider +1- [phone] Reason for Visit * Reason Onset Date Comments Med Refill 04/11/2024 Encounter Details Date Type Department Care Team (Late st Contact Info) Description 04/11/2024 Refill [facility] MEDICINE [address] [place] [address] Natasha Jiang MD [address] [place] [address] Closed nondisplaced fracture of acromial end of [...] Upcoming Encounters Date Type Department Care Team ([facility] st Contact Info) Description 06/13/2024 1:00 PM EST Office Visit [facility] MED & PEDS [address] [place] [address] Sesar Pereyra MD [address] [place] [address] documented as of this encounter Visit Diagnoses Diagnosis Closed nondisplaced fracture of acromial end of right clavicle, initial encounter documented in this encounter Additional Health Concerns Assessment Noted Time PHQ-9 Depression Total Score: 16 024 10:59 AM EDT documented as of this encounter Care Teams Academic Associate Relationship Specialty Start Date End Date Sesar Pereyra MD [address] [place] [address] PCP - General Internal Medicine [facility] documented as of this encounter
--- OUTSIDE RECORDS SUMMARY | 2024-06-12 12:30 | XMS_ITS | Encounter Summary ---
Author Organization [employer] Address 75 [facility] 7t [place] [address] Care Team Providers Care Bottling Line Operator Name Role Phone Sesar Pereyra MD Primary Care Provider +1- [phone] Reason for Visit * Reason Onset Date Comments Results 06/06/2023 Encounter Details Date Type Department Care Team ([facility] st Contact Info) Description 06/06/2023 Telephone [facility] MEDICINE [address] [place] [address] Sesar Pereyra MD [address] [place] [address] Results Social History Tobacco Use Types Packs/Day [...] Date when done: 06/01/23-06/02/23 pt unsure Facility: [facility] documented in this encounter Plan of Treatment Upcoming Encounters Date Type Department Care Team (Late st Contact Info) Description 06/13/2024 1:00 PM EST Office Visit [facility] MED & PEDS [address] [place] [address] Sesar Pereyra MD [address] [place] [address] documented as of this encounter Visit Diagnoses Not on filedocumented in this encounter Care Teams Bottling Line Operator Relationship Specialty Start Date End Date Sesar Pereyra MD [address] [place] [address] PCP - General Internal Medicine 03/01/[address] [facility] 03/22/24 documented as of this encounter
--- OUTSIDE RECORDS SUMMARY | 2024-06-12 12:30 | XMS_ITS | Encounter Summary ---
Author Organization [facility] Address [address] [place] [address] Care Team Providers Care Sole Filler Name Role Phone Annalee Jones MD Primary Care Provider Un available Yolande Nicholas DO Primary Care Pro vider Unavailable Anuj Priest DO Primary Care Provider Judy vailable [facility], Pcp Primary Care Provider Unavailabl e Encounter Details Date Type Department Care Team Description 09/04/2018 Release of Information Medical Records [address] [place] [id number] Abstract, Provider Social History Tobacco Use Types [...] on filedocumented in this encounter Care Teams Sole Filler Relationship Specialty Start Date End Date Annalee Jones MD PCP - General Internal Medicine 01/06/17 9 Yolande Nicholas DO PCP - General Internal Medicine 12/03/18 10/08/20 Anuj Priest DO PCP - General Internal Medicine 10/09/20 2 Jj, Pcp PCP - General Internal Medicine 06/17/21 documented as of this encounter
--- OUTSIDE RECORDS SUMMARY | 2024-06-12 12:30 | XMS_ITS | Encounter Summary ---
Author Organization [facility] Address [address] [place] [address] Care Team Providers Care Gas Pumper Name Role Phone Yolande Nicholas DO Primary Care Pro vider Unavailable Anuj Priest DO Primary Care Provider [facility], Pcp Primary Care Provider Unavailabl e Reason for Visit * Reason Onset Date Comments [facility] Call 02/25/2020 Encounter Details Date Type Department Care Team Description 02/25/2020 Telephone Adult Medicine [address] [address] Yolande Nicholas DO [facility] Call Social History [...] on filedocumented in this encounter Care Teams Gas Pumper Relationship Specialty Start Date End Date Yolande Nicholas DO PCP - General Internal Medicine 12/03/18 10/08/20 Anuj Priest DO PCP - General Internal Medicine 10/09/[address] [place] [address], Pcp PCP - General Internal Medicine 06/17/21 documented as of this encounter
--- OUTSIDE RECORDS SUMMARY | 2024-06-12 12:30 | XMS_ITS | Encounter Summary ---
Author Organization [facility] Address [address] [place] [address] Care Team Providers Care Hairspring Cutter Name Role Phone Annalee Jones MD Primary Care Provider Un available Yolande Nicholas DO Primary Care Pro vider Unavailable Anuj Priest DO Primary Care Provider Judy [facility], Pcp Primary Care Provider Unavailabl e Reason for Visit * Reason Onset Date Comments Form 11/20/2017 Encounter Details Date Type Department Care Team Description 11/20/2017 Telephone Adult Medicine [address] [address] Annalee Jones MD Form Social History Tobacco Use Types Packs/Day Years Used Date Smoking Tobacco: Former Cigarettes 1 35 Q uit: 07/26/2005 Smokeless Tobacco: Never Alcohol Use Standard Drinks/Week Comments No 0 (1 standard drink = 0.6 oz pur e alcohol) prior heavy stopped 3. Sex Assigned at Date Recorded Not on file documented as of this encounter Miscellaneous Notes * Telephone Encounter - Raiza Allen M.A. - 11/21/2017 8:30 AM EDT This is not a form for the forms dept its a PA will return to bsr * Telephone Encounter - Gerri Parra - 11/20/2017 6:28 PM EDT If patient presents with the one of the forms directly below the direct patient with their forms toMedical Records to be completed by [facility]. All [facility] disability forms ONLY All [employer] requests for Worker's Compensation Motor vehicle accident [facility] Elder [facility] Physical forms for long-term housing Life insurance FORMS TO BE COMPLETED IN THE PRACTICE: Type of form: Glimpse Release of information form ( all sections) has been completed and Signed.NO If this form is for the Registry of Motor Vechicles for a handicap placard or plate is the patient go to be: N/A -not a Registry form Is the patient still driving? N\A For what medical problem does the patient need this form completed? UNKNOWN Is patients name on the form? YES Is the patients portion (demographics) of the form completed? YES Did the patient sign the form? NO Which provider is form to be completed by? DR JONES Patient requesting the form be: Fax to other office/MD at fax # [facility] If form is not to be picked up by patient has patient been informed that RELEASE OF INFO form must be signed by them for alternate person to forklift picker form? NO Patient has been informed that completion will be in 7-10 business days: NO documented in this encounter Plan of Treatment Not on file documented as of this encounter Visit Diagnoses Not on filedocumented in this encounter Care Teams Hairspring Cutter Relationship Specialty Start Date End Date Annalee Jones MD PCP - General Internal Medicine 01/06/17 9 Yolande Nicholas DO PCP - General Internal Medicine 12/03/18 10/08/20 Anuj Priest DO PCP - General Internal Medicine 10/09/20 2 [facility], Pcp PCP - General Internal Medicine 06/17/21 documented as of this encounter
--- OUTSIDE RECORDS SUMMARY | 2024-06-12 12:30 | XMS_ITS | Encounter Summary ---
Author [facility] Address [address] [place] [address] Care Team Providers Care Bung Driver Name Role Phone Annalee Jones MD Primary Care Provider Un available Yolande Nicholas DO Primary Care Pro vider Unavailable Anuj Priest DO Primary Care Provider Judy [facility], Pcp Primary Care Provider Unavailabl e Reason for Visit * Reason Onset Date Comments TEST RESULTS 08/24/2018 Encounter Details Date Type Department Care Team Description 08/24/2018 Telephone Adult Medicine [facility] [address] [place] [address] Melva Salgado, [facility] [address] [place] [id number] TEST RESULTS Social History Tobacco Use Types [...] on filedocumented in this encounter Care Teams Bung Driver Relationship Specialty Start Date End Date Annalee Jones MD PCP - General Internal Medicine 01/06/17 9 Yolande Nicholas DO PCP - General Internal Medicine 12/03/18 10/08/20 Anuj Priest DO PCP - General Internal Medicine 10/09/20 2 Jj Pcp PCP - General Internal Medicine 06/17/21 documented as of this encounter
--- OUTSIDE RECORDS SUMMARY | 2024-06-12 12:30 | XMS_ITS | Clinical Summary ---
Author Organization [facility] Address [address] [place] [address] Care Team Providers Care Chrome Worker Name Role Phone Nuha Galvin PA-C Primary Care Provider Source Comments PLEASE NOTE, if this patient [...] Date Sleep disorder 02/02/2015 Overview (02/02/2015): Saw [facility] and sleep on 01/15/2015: Dr. Johnson [...] once a year. In remission Seen at [facility] urology Depression with anxiety 04/01/2014 Overview (04/01/2014): Dr. Pradhan at [facility]. Is going to establish care at a new facility. PVD (peripheral vascular dis ease) with claudication ([facility]) 04/01/2014 Overview (07/04/2014): Fem-Fem done by Dr. Hensley in 2006. Sees this doctor once a year at [facility]. Follows up with this facility every 6 months. 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 Harirson on 03/04/2015: will recheck aneurysm periodically: Now [...] SAFETY NET MEDICARE - [place] Care Teams Chrome Worker Relationship Specialty Start Date End Date Nuha Galvin PA-C [address] [place] [address] PCP - General 03/21/18
--- OUTSIDE RECORDS SUMMARY | 2024-06-12 12:30 | XMS_ITS | Encounter Summary ---
Author Organization [facility] Address [address] [place] [address] Care Team Providers Care Slate Trimmer Name Role Phone Yolande Nicholas DO Primary Care Pro vider Unavailable Anuj Priest DO Primary Care Provider [facility], Pcp Primary Care [facility] Encounter Details Date Type Department Care Team Description 03/03/2020 Pt. Non Urgent Medic al Question Adult Medicine [address] [address] Yolande Nicholas DO Social History Tobacco Use [...] copy of info sent to me. * Ammy Peña M.A. - 03/03/2020 11:42 AM ESTFrom: Alex Nettles To: Yolande Banegas DO Sent: 03/03/2020 10:05 AM EST Subject: [address] Argueta * at 8:00 AM, Dr Argueta/Vascular Surgeon @ [facility] has ordered a US LOWER EXTREMITY ARTERIES (GRANT) PHSIO COMPLETE BILAT for Arun. *Please explain what this is. * 9:00 AM Office visit with Dr. Argueta. *Shall we instruct Dr. Argueta to send all reports to Dr. Alvarez? documented in this encounter Plan of Treatment Not on file documented as of this encounter Visit Diagnoses Not on filedocumented in this encounter Care Teams Slate Trimmer Relationship Specialty Start Date End Date Yolande Nicholas DO PCP - General Internal Medicine 12/03/18 10/08/20 Anuj Priest DO PCP - General Internal Medicine 10/09/[address] [place] [address], Pcp PCP - General Internal Medicine 06/17/21 documented as of this encounter
--- OUTSIDE RECORDS SUMMARY | 2024-06-12 12:30 | XMS_ITS | Encounter Summary ---
Author Organization [facility] Address [address] [place] [address] Care Team Providers Care Trauma Therapist Name Role Phone Yolande Nicholas DO Primary Care Pro vider Unavailable Anuj Priest DO Primary Care Provider [facility], Pcp Primary Care Provider Unavailabl e Reason for Visit * Reason Onset Date Comments Mychart Rx Refill 02/15/2019 Encounter Details Date Type Department Care Team Description 02/15/2019 Refill Adult Medicine [facility] [address] [place] [address] [facility] [address] [place] [address] Mychart Rx Refill Social History Tobacco Use [...] Telephone Encounter - Blessing Pérez M.A. - 02/15/2019 8:44 AM EDT Last office visit 02/08/19 Lab Results Component Value Date NA 137 02/08/2019 K 5.1 02/08/2019 CO2 28 02/08/2019 CL 104 02/08/2019 BUN 26 02/08/2019 CREAT 1.22 02/08/2019 GLU 93 02/08/2019 CA 9.5 02/08/2019 GFR 59 02/08/2019 * Telephone Encounter - Kira Lee M.A. - 02/15/2019 7:54 AM EDTFrom: Alex Nettles To: MELITON Lombardo Sent: 02/15/2019 7:53 AM EDT Subject: Medication Renewal Request Original authorizing provider: MELITON Lombardo would like a refill of the following medications: lisinopril (PRINIVIL,ZESTRIL) 20 MG tablet [MELITON Lombardo] Preferred pharmacy: [facility] [id number] [place] Comment: Need to have a refill documented in this encounter Plan of Treatment Not on file documented as of this encounter Visit Diagnoses Not on filedocumented in this encounter Care Teams Trauma Therapist Relationship Specialty Start Date End Date Yolande Nicholas DO PCP - General Internal Medicine 12/03/18 10/08/20 Anuj Priest DO PCP - General Internal Medicine 10/09/20 2 [facility], Pcp PCP - General Internal Medicine 06/17/21 documented as of this encounter
--- OUTSIDE RECORDS SUMMARY | 2024-06-12 12:30 | XMS_ITS | Encounter Summary ---
Author Organization [employer] Address [address] [facility] 7t [place] [address] Care Team Providers Care Supervisor Communications And Signals Name Role Phone Sesar Pereyra MD Primary Care Provider +1- [phone] Reason for Visit * Reason Onset Date Comments Med Refill 04/02/2024 Encounter Details Date Type Department Care Team ([facility] st Contact Info) Description 04/02/2024 Telephone [facility] MEDICINE [address] [place] [address] Sesar Pereyra MD [address] [place] [address] Med Refill Social History Tobacco Use Types [...] 9:39 AM EST Medication was sent to [facility] on 04/01/24 #30 with 11 refills. * Telephone Encounter - Miri Young - 04/02/2024 9:33 AM EST TC from pt requesting medication refill. Medications needing refill : metoprolol tartrate (Lopressor) 25 MG tablet To be sent to: [facility] documented in this encounter Plan of Treatment Upcoming Encounters Date Type Department Care Team (Late st Contact Info) Description 06/13/2024 1:00 PM EST Office Visit [facility] MED & PEDS [address] [place] [address] Sesar Pereyra MD [address] [place] [address] documented as of this encounter Visit Diagnoses Not on filedocumented in this encounter Additional Health Concerns Assessment Noted Time PHQ-9 Depression Total Score: 16 024 10:59 AM EDT documented as of this encounter Care Teams Supervisor Communications And Signals Relationship Specialty Start Date End Date Sesar Pereyra MD [address] [place] [address] PCP - General Internal Medicine 03/01/21 [facility] 03/22/24 documented as of this encounter
--- OUTSIDE RECORDS SUMMARY | 2024-06-12 12:30 | XMS_ITS | Clinical Summary ---
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 Father (Age 49) [place] x 3, ET [place] Maternal Grandfather (Age [...] 02/19/2015, 02/19/2015, Additional history exists Care Teams Home Health Care Social Worker Relationship Specialty Start Date End Date Community, Pcp PCP - General Internal Medicine 06/17/21
--- OUTSIDE RECORDS SUMMARY | 2024-06-12 12:30 | XMS_ITS | Encounter Summary ---
Author Organization [employer] Address [address] [facility] 7t [place] [address] Care Team Providers Care Fire Assistant Name Role Phone Sesar Pereyra MD Primary Care Provider [phone] [phone] Encounter Details Date Type Department Care Team (Late st Contact Info) Description 04/02/2024 Orders Only [facility] [address] [place] [address] Provider, MD Jazmyn Social History Tobacco Use [...] 1:00 PM EST Office Visit [facility] MED & PEDS [address] [place] [address] Sesar Pereyra MD [address] [place] [address] documented as of this encounter Procedures Procedure [...] documented as of this encounter Care Teams Fire Assistant Relationship Specialty Start Date End Date Sesar Pereyra MD [address] [place] [address] PCP - General Internal Medicine 03/01/21 [facility] documented as of this encounter
--- OUTSIDE RECORDS SUMMARY | 2024-06-12 12:31 | XMS_ITS | Encounter Summary ---
Author Organization [employer] Address [address] [facility] 7t [place] [address] Care Team Providers Care Server Engineer Name Role Phone Sesar Pereyra MD Primary Care Provider +1- [phone] Reason for Visit * Reason Comments Med Refill Encounter Details Date Type Department Care Team ([facility] Contact Info) Description 06/10/2022 Refill [facility] MED & PEDS [address] [place] [address] Sesar Pereyra MD [address] [place] [address] Primary insomnia Social History Tobacco Use Types [...] Upcoming Encounters Date Type Department Care Team ([facility] Contact Info) Description 06/13/2024 1:00 PM EST Office Visit [facility] MED & PEDS [address] [place], [place] [id number] Sesar Pereyra MD [address] [place] [address] documented as of this encounter Visit Diagnoses Diagnosis Primary insomnia Persistent disorder of initiating or maintaining sleep documented in this encounter Care Teams Server Engineer Relationship Specialty Start Date End Date Sesar Pereyra MD [address] [place] [address] PCP - General Internal Medicine 03/01/21 [facility] 03/22/24 documented as of this encounter
--- OUTSIDE RECORDS SUMMARY | 2024-06-12 12:31 | XMS_ITS | Encounter Summary ---
Author Organization [employer] Address [address] [facility] 7t [place] [address] Care Team Providers Care Chemical Reclamation Equipment Operator Name Role Phone Sesar Pereyra MD Primary Care Provider +1- [phone] Reason for Visit * Reason Onset Date Comments Lab Orders 05/30/2024 Referral 05/30/2024 Encounter Details Date Type Department Care Team (Late st Contact Info) Description 05/30/2024 Telephone [facility] MEDICINE [address] [place] [address] Sesar Pereyra MD [address] [place] [address] Lab Orders; Referral Social History Tobacco Use [...] Description 06/13/2024 1:00 PM EST Office Visit [facility] MED & PEDS [address] [place] [address] Sesar Pereyra MD [address] [place] [address] documented as of this encounter Visit Diagnoses Not on filedocumented in this encounter Additional Health Concerns Assessment Noted Time PHQ-9 Depression Total Score: 16 024 10:59 AM EDT documented as of this encounter Care Teams Chemical Reclamation Equipment Operator Relationship Specialty Start Date End Date Sesar Pereyra MD [address] [place] [address] PCP - General Internal Medicine 03/01/21 [facility] 03/22/24 documented as of this encounter
--- OUTSIDE RECORDS SUMMARY | 2024-06-12 12:31 | XMS_ITS | Encounter Summary ---
Author Organization [employer] Address [address] [facility] 7t [place] [address] Care Team Providers Care Patient Access Manager Name Role Phone Sesar Pereyra MD Primary Care Provider +1- [phone] Reason for Visit * Reason Onset Date Comments Medication Question 05/23/2024 Encounter Details Date Type Department Care Team ([facility] st Contact Info) Description 05/23/2024 Telephone [facility] MEDICINE [address] [place] [address] Sesar Pereyra MD [address] [place] [address] Medication Question Social History Tobacco Use Types [...] any questions you can contact L&C at [phone]. documented in this encounter Plan of Treatment Upcoming Encounters Date Type Department Care Team ([facility] st Contact Info) Description 06/13/2024 1:00 PM EST Office Visit [facility] MED & PEDS [address] [place] [address] Sesar Pereyra MD [address] [place] [address] documented as of this encounter Visit Diagnoses Diagnosis Primary hypertension Unspecified essential hypertension Hypercholesterolemia Pure hypercholesterolemia documented in this encounter Additional Health Concerns Assessment Noted Time PHQ-9 Depression Total Score: 16 024 10:59 AM EDT documented as of this encounter Care Teams Patient Access Manager Relationship Specialty Start Date End Date Sesar Pereyra MD [address] [place] [address] PCP - General Internal Medicine 03/01/21 [facility] 03/22/24 documented as of this encounter
--- OUTSIDE RECORDS SUMMARY | 2024-06-12 12:31 | XMS_ITS | Encounter Summary ---
Author Organization [employer] Address [address] [facility] [place] [address] Care Team Providers Care Automotive Sales Associate Name Role Phone Sesar Pereyra MD Primary Care Provider +1- [phone] Encounter Details Date Type Department Care Team ([facility] Contact Info) Description 10/13/2022 Orders Only [facility] MED & PEDS [address] [place] [address] Sesar Pereyra MD [address] [place] [address] Social History Tobacco Use Types Packs/Day Years [...] [facility] MED & PEDS [address] [place], [place] [id number] Sesar Pereyra MD [address] [place] [address] documented as of this encounter Visit Diagnoses Not on filedocumented in this encounter Care Teams Automotive Sales Associate Relationship Specialty Start Date End Date Sesar Pereyra MD [address] [place] [address] PCP - General Internal Medicine 03/01/21 [facility] 03/22/24 documented as of this encounter
--- OUTSIDE RECORDS SUMMARY | 2024-06-12 12:31 | XMS_ITS | Encounter Summary ---
Author Organization [facility] Address [address] [place] [address] Care Team Providers Care Compliance Program Manager Name Role Phone Yolande Nicholas DO Primary Care Pro vider Unavailable Anuj Priest DO Primary Care Provider [facility], Pcp Primary Care Provider Unavailabl e Reason for Visit * Reason Onset Date Comments Faxed Order 03/22/2020 Encounter Details Date Type Department Care Team Description 03/22/2020 Telephone Adult [address] [address] Yolande Nicholas DO Faxed Order Social History [...] * Telephone Encounter - Sabina Rosa - 03/23/2020 3:12 PM EST Faxed order received from [facility]. Please review, sign, date, and fax back to [phone] * Telephone Encounter - Gerri Parra - 03/22/2020 12:47 PM EST [facility] IS FAXING ORDERS TO BE SIGN AND FAX BACK TO [phone]. documented in this encounter Plan of Treatment Not on file documented as of this encounter Visit Diagnoses Not on filedocumented in this encounter Care Teams Compliance Program Manager Relationship Specialty Start Date End Date Yolande Nicholas DO PCP - General Internal Medicine 12/03/18 10/08/20 Anuj Priest DO PCP - General Internal Medicine 10/09/20 2 [facility], Pcp PCP - General Internal Medicine 06/17/21 documented as of this encounter
--- OUTSIDE RECORDS SUMMARY | 2024-06-12 12:31 | XMS_ITS | Encounter Summary ---
Author Organization [facility] Address [address] [place] [address] Care Team Providers Care Nuclear Plant Construction Worker Name Role Phone Yolande Nicholas DO Primary Care Pro vider Unavailable Anuj Priest DO Primary Care Provider [facility], Pcp Primary Care Provider Unavailabl e Reason for Visit * Reason Onset Date Comments Faxed Refill 06/06/2019 HYDROXYZINE Encounter Details Date Type Department Care Team Description 06/06/2019 Refill Adult Medicine [address] [address] Yolande Nicholas DO Faxed Refill (HYDROXYZINE ) Social History Tobacco Use Types Packs/Day Years Used Date Smoking Tobacco: Former Cigarettes 1 35 Q uit: 07/26/2005 Smokeless Tobacco: Never Alcohol Use Standard Drinks/Week Comments Yes 0 (1 standard drink = 0.6 oz pure alcohol) 1 1/2 week ago. has now stopped Sex Assigned at Date Recorded Not on file documented as of this encounter Miscellaneous Notes * Telephone Encounter - Christel Gamez - 06/06/2019 1:55 PM EST Patient would like script to be: E-PRESCRIBED/FAXED TO PHARMACY WHEN WAS THE PATIENT'S LAST APPOINTMENT IN ADULT MEDICINE? 05/15/18 WHEN WAS THE LAST TIME THE PATIENT SAW THEIR PCP? SAME Does patient have an upcoming appointment? 08/15/19 (THE MEDICATION REQUESTED IS ON THE MED LIST ABOVE) All of the medications requested were on the CURRENT MEDS list Did you check the Pharmacy information above?: YES Patient wants: 90 -day supply Is this a mail order prescription request ? NO If the refill is from a FAXED refill request what is the RX # listed on the fax? N/A Patients current insurance carrier is: Payor: [employer] MEDICARE / Plan: MEDICARE FFS $5 [facility] [id number] / Product Type: MEDICARE [id number] documented in this encounter Plan of Treatment Not on file documented as of this encounter Visit Diagnoses Not on filedocumented in this encounter Care Teams Nuclear Plant Construction Worker Relationship Specialty Start Date End Date Yolande Nicholas DO PCP - General Internal Medicine 12/03/18 10/08/20 Anuj Priest DO PCP - General Internal Medicine 10/09/[address] [place] [address], Pcp PCP - General Internal Medicine 06/17/21 documented as of this encounter
--- OUTSIDE RECORDS SUMMARY | 2024-06-12 12:31 | XMS_ITS | Encounter Summary ---
Author Organization [employer] Address [address] [facility] [address] [place] [address] Care Team Providers Care Tool Builder Name Role Phone Sesar Pereyra MD Primary Care Provider [phone]- [phone] Reason for Visit * Reason Onset Date Comments Lab Orders 05/04/2022 Encounter Details Date Type Department Care Team ([facility] st Contact Info) Description 05/04/2022 Telephone [facility] MEDICINE [address] [place] [address] Sesar Pereyra MD [address] [place] [address] Lab Orders Social History Tobacco Use Types [...] pt requesting status n lab referral to [facility] Please contact pt at [phone] * Telephone Encounter - Jacquelyn Abel - 05/04/2022 8:11 AM EST Tc from pt requesting a status update on lab orders. Please contact at [phone] documented in this encounter Plan of Treatment Upcoming Encounters Date Type Department Care Team (Late st Contact Info) Description 06/13/2024 1:00 PM EST Office Visit [facility] MED & PEDS [address] [place] [address] Sesar Pereyra MD [address] [place] [address] Scheduled Orders Name Type Priority Associated Diagnoses Orde r Schedule Basic Metabolic Panel Lab Routine Essential hypertension Expected: 05/05/2022 (Approximate), Expires: 05/05/2023 documented as of this encounter Visit Diagnoses Diagnosis Essential hypertension- Primary Unspecified essential hypertension documented in this encounter Care Teams Tool Builder Relationship Specialty Start Date End Date Sesar Pereyra MD [address] [place] [address] PCP - General Internal Medicine 03/01/21 [facility] 03/22/24 documented as of this encounter
--- OUTSIDE RECORDS SUMMARY | 2024-06-12 12:31 | XMS_ITS | Encounter Summary ---
Author Organization [facility] Address [address] [place] [address] Care Team Providers Care Violin Repairer Name Role Phone Yolande Nicholas DO Primary Care Pro vider Unavailable Anuj Priest DO Primary Care Provider [facility], Pcp Primary Care Provider Unavailabl e Encounter Details Date Type Department Care Team Description 03/13/2020 Pt. Non Urgent Medic al Question Adult Medicine [address] [address] Yolande Nicholas DO Social History Tobacco Use [...] on filedocumented in this encounter Care Teams Violin Repairer Relationship Specialty Start Date End Date Yolande Nicholas DO PCP - General Internal Medicine 12/03/18 10/08/20 Anuj Priest DO PCP - General Internal Medicine 10/09/20 2 [facility], Pcp PCP - General Internal Medicine 06/17/21 documented as of this encounter
--- OUTSIDE RECORDS SUMMARY | 2024-06-12 12:31 | XMS_ITS | Encounter Summary ---
Author Organization [facility] Address [address] [place] [address] Care Team Providers Care Death Claim Examiner Name Role Phone Yolande Nicholas DO Primary Care Pro vider Unavailable Anuj Priest DO Primary Care Provider [facility], Pcp Primary Care Provider Unavailabl e Reason for Visit * Reason Onset Date Comments Provider Call Back 04/29/2019 Encounter Details Date Type Department Care Team Description 04/29/2019 Telephone Adult [address] [address] Yolande Nicholas DO Provider Call Back Social [...] Telephone Encounter - Yolande Banegas DO - 04/30/2019 1:00 PM EST Im not aware of any in [place] * Telephone Encounter - Minerva Kan R.N. - 04/29/2019 3:[address] Yolande Gomez Are you aware of a detox in [facility] ? * Telephone Encounter - Lonny Lazarus - 04/29/2019 1:15 PM EST Patient relapsed for alcohol abuse 3 days ago and requests to speak to Dr. Yolande Gomez or her team. Patient states that he does want to get better. The patient says Dr. Alvarez mentioned a rehab facility in [place] last time, but he cannot remember the address, phone number, or name of the facility. documented in this encounter Plan of Treatment Not on file documented as of this encounter Visit Diagnoses Not on filedocumented in this encounter Care Teams Death Claim Examiner Relationship Specialty Start Date End Date Yolande Nicholas DO PCP - General Internal Medicine 12/03/18 10/08/20 Anuj Priest DO PCP - General Internal Medicine 10/09/[address] [place] [address], Pcp PCP - General Internal Medicine 06/17/21 documented as of this encounter
--- OUTSIDE RECORDS SUMMARY | 2024-06-12 12:31 | XMS_ITS | Encounter Summary ---
Author Organization [facility] Address [address] [place] [address] Care Team Providers Care Advertising Material Distributor Name Role Phone Yolande Nicholas DO Primary Care Pro vider Unavailable Anuj Priest DO Primary Care Provider [facility], Pcp Primary Care Provider Unavailabl e Reason for Visit * Reason Onset Date Comments Faxed Order 03/29/2020 Encounter Details Date Type Department Care Team Description 03/29/2020 Telephone Adult [address] [address] Yolande Nicholas DO Faxed Order Social History [...] TO BE SIGN AND FAX BACK TO [phone]. documented in this encounter Plan of Treatment Not on file documented as of this encounter Visit Diagnoses Not on filedocumented in this encounter Care Teams Advertising Material Distributor Relationship Specialty Start Date End Date Yolande Nicholas DO PCP - General Internal Medicine 12/03/18 10/08/20 Anuj Priest DO PCP - General Internal Medicine 10/09/20 2 [facility], Pcp PCP - General Internal Medicine 06/17/21 documented as of this encounter
--- OUTSIDE RECORDS SUMMARY | 2024-06-12 12:31 | XMS_ITS | Encounter Summary ---
Author Organization [facility] Address [address] [place] [address] Care Team Providers Care Family Program Specialist Name Role Phone Yolande Nicholas DO Primary Care Pro vider Unavailable Anuj Priest DO Primary Care Provider [facility], Pcp Primary Care Provider Unavailabl e Reason for Visit * Reason Onset Date Comments Faxed Refill 05/30/2019 Encounter Details Date Type Department Care Team Description 05/30/2019 Refill Adult Medicine [address] [address] Yolande Nicholas DO Faxed Refill Social History [...] the RX # listed on the fax? [id number] Patients current insurance carrier is: Payor: [facility] - MEDICARE / Plan: MEDICARE FFS $5 [facility] [id number] / Product Type: MEDICARE [id number] documented in this encounter Plan of Treatment Not on file documented as of this encounter Visit Diagnoses Not on filedocumented in this encounter Care Teams Family Program Specialist Relationship Specialty Start Date End Date Yolande Nicholas DO PCP - General Internal Medicine 12/03/18 10/08/20 Anuj Priest DO PCP - General Internal Medicine 10/09/[address] [place] [address], Pcp PCP - General Internal Medicine 06/17/21 documented as of this encounter
--- OUTSIDE RECORDS SUMMARY | 2024-06-12 12:31 | XMS_ITS | Encounter Summary ---
Author Organization [facility] Address [address] [place] [address] Care Team Providers Care Sales Financial Analyst Name Role Phone Yolande Nicholas DO Primary Care Pro vider Unavailable Anuj Priest DO Primary Care Provider [facility], Pcp Primary Care Provider Unavailabl e Reason for Visit * Reason Onset Date Comments Faxed Order 03/03/2020 Encounter Details Date Type Department Care Team Description 03/03/2020 Telephone Adult [address] [address] Yolande Nicholas DO Faxed Order Social History [...] * Telephone Encounter - Kathe Orourke - 03/03/2020 11:13 AM EST Fax orders from [facility], please sign and fax back. * Telephone Encounter - Kathe Orourke - 03/03/2020 11:07 AM EST Fax orders from [facility], please sign and fax back. documented in this encounter Plan of Treatment Not on file documented as of this encounter Visit Diagnoses Not on filedocumented in this encounter Care Teams Sales Financial Analyst Relationship Specialty Start Date End Date Yolande Nicholas DO PCP - General Internal Medicine 12/03/18 10/08/20 Anuj Priest DO PCP - General Internal Medicine 10/09/[address] [place] [address], Pcp PCP - General Internal Medicine 06/17/21 documented as of this encounter
--- OUTSIDE RECORDS SUMMARY | 2024-06-12 12:31 | XMS_ITS | Encounter Summary ---
Author Organization [employer] Address [address] [facility] [address] [place] [address] Care Team Providers Care Wood Patternmaker Apprentice Name Role Phone Sesar Pereyra MD Primary Care Provider +1- [phone] Reason for Visit * Reason Comments Med Refill Encounter Details Date Type Department Care Team ([facility] Contact Info) Description 10/19/2022 Refill [facility] MED & PEDS [address] [place] [address] Sesar Pereyra MD [address] [place] [address] Social History Tobacco Use Types Packs/Day Years [...] 1:00 PM EST Office Visit [facility] MED & PEDS [address] [place] [address] Sesar Pereyra MD [address] [place] [address] documented as of this encounter Visit Diagnoses Not on filedocumented in this encounter Care Teams Wood Patternmaker Apprentice Relationship Specialty Start Date End Date Sesar Pereyra MD [address] [place] [address] PCP - General Internal Medicine 03/01/21 [facility] 03/22/24 documented as of this encounter
--- OUTSIDE RECORDS SUMMARY | 2024-06-12 12:31 | XMS_ITS | Encounter Summary ---
Author Organization [employer] Address [address] [facility] [address] [place] [address] Care Team Providers Care Concrete Mixing Plant Laborer Name Role Phone Sesar Pereyra MD Primary Care Provider +1- [phone] Encounter Details Date Type Department Care Team (Late st Contact Info) Description 05/30/2024 Telephone [facility] MEDICINE [address] [place] [address] Sesar Pereyra MD [address] [place] [address] Social History Tobacco Use Types Packs/Day Years [...] 06/13/2024 1:00 PM EST Office Visit [facility] MED & PEDS [address] [place] [address] Sesar Pereyra MD [address] [place] [address] documented as of this encounter Visit Diagnoses Not on filedocumented in this encounter Additional Health Concerns Assessment Noted Time PHQ-9 Depression Total Score: 16 024 10:59 AM EDT documented as of this encounter Care Teams Concrete Mixing Plant Laborer Relationship Specialty Start Date End Date Sesar Pereyra MD [address] [place] [address] PCP - General Internal Medicine 03/01/21 [facility] 03/[facility] documented as of this encounter
--- OUTSIDE RECORDS SUMMARY | 2024-06-12 12:31 | XMS_ITS | Clinical Summary ---
Author Organization Unknown Care Team Providers Care Project Geophysicist Name Role Phone MARCO RAMIREZ, POOJA Unavailable Unavailabl e JIMENEZ PT, COURTNEY Unavailable Unavailable SPAFFORD OT, DAGO Unavailable Unavailable CONDINO FERNY/CALZADA, ANGUS Unavailable Unav ailable FECTEAU CANDY BAR ATTENDANT, JANETT Unavailable Unavailable LESLYE RN, DAGOBERTO Unavailable Unavailab abraham CARRION QUALITY IMPROVEMENT COORDINATOR (RN), ANTONIO Unavailable Unavailable JOSE RAFAEL SKAGGSN, YORDAN Unavailable Unavail able Payers Payer Name Policy Type Policy Number Effective Date Expira tion Date [facility] [id number] Problems Condition Name Condition Details Condition Category [...] 2023-05 00:00: 00 ATHSCL HEART DISEASE OF [place] CORONARY ARTERY W/O ANG PCTRS Active 05-01 [...] 2023-05 00:00: 00 05-16 23:59 :00 No [id number] PAIN 15 mg EVERY 6 HOURS NEEDED 15 mg EVERY 6 HOURS NEEDED (route: oral) Med Classific ation: Analgesic , Anti-infl ammatory or Antipyret ic clonazepam 0.5 mg tablet 2023-05 00:00: 00 Yes [id number] ANXIETY 0.5 mg 2 TIMES DAILY 0.5 mg 2 TIMES DAILY (route: oral) Med Classific ation: Central Nervous System Agents lisinopril 40 mg tablet 2023-05 00:00: 00 03-21 23:59 :00 No [id number] CAD 40 mg DAILY 40 mg DAILY (route: oral) Med Classific ation: Cardiovas cular Therapy Agents atorvastati n 80 mg tablet 2023-05 00:00: 00 Yes [id number] HYPERTENSIO N 80 mg DAILY 80 mg DAILY (route: oral) Med Classific ation: Cardiovas cular Therapy Agents cilostazol 50 mg tablet 2023-05 00:00: 00 Yes [id number] HYPERTENSIO N 50 mg 2 TIMES DAILY 50 mg 2 TIMES DAILY (route: oral) Med Classific ation: Hematolog ical Agents clopidogrel 75 mg tablet 2023-05 00:00: 00 03-21 23:59 :00 No [id number] CORONARY ARTERY DISEASE 75 mg DAILY 75 mg DAILY (route: oral) Med Classific ation: Hematolog ical Agents Eliquis 5 mg tablet 2023-05 00:00: 00 Yes [id number] ANTI ARRHYTHMIC 5 mg 2 TIMES DAILY 5 mg 2 TIMES DAILY (route: oral) Med Classific ation: Hematolog ical Agents furosemide 40 mg tablet 2023-05 00:00: 00 03-21 23:59 :00 No [id number] BPH 40 mg DAILY 40 mg DAILY (route: oral) Alternate Route: INTRA-MUS CULAR. Med Classific ation: Cardiovas cular Therapy Agents metoprolol tartrate 50 mg tablet 2023-05 00:00: 00 03-22 23:59 :00 No [id number] CAD 50 mg DAILY 50 mg DAILY (route: oral) Med Classific ation: Cardiovas cular Therapy Agents quetiapine 25 mg tablet 2023-05 00:00: 00 Yes [id number] MOOD STABILIZER 25 mg 2 TIMES DAILY 25 mg 2 TIMES DAILY (route: oral) Med Classific ation: Central Nervous System Agents sertraline 50 mg tablet 2023-05 00:00: 00 Yes [id number] MOOD STABILIZER 50 mg DAILY 50 mg DAILY (route: oral) Med Classific ation: Central Nervous System Agents tamsulosin 0.4 mg capsule 2023-05 00:00: 00 Yes [id number] BPH 0.4 mg DAILY 0.4 mg DAILY (route: oral) Med Classific ation: Genitouri nary Therapy docusate sodium 100 mg tablet 2023-05 00:00: 00 Yes [id number] CONSTIPATIO N 100 mg DAILY 100 mg DAILY (route: oral) Med Classific ation: Gastroint estinal Therapy Agents gabapentin 100 mg capsule 2023-05 00:00: 00 Yes [id number] PAIN 1-3 capsule BEDTIME 1-3 capsule BEDTIME (route: oral) Med Classific ation: Central Nervous System Agents metoprolol tartrate 25 mg tablet 2023-05 00:00: 00 03-27 16:09 :43.1 53 No [id number] HYPERTENSIO N 25 mg 2 TIMES DAILY 25 mg 2 TIMES DAILY (route: oral) Med Classific ation: Cardiovas cular Therapy Agents Multaq 400 mg tablet 2023-05 00:00: 00 Yes [id number] ANTIARRHYTH MICHAEL 400 mg 2 TIMES DAILY 400 mg 2 TIMES DAILY (route: oral) Med Classific ation: Cardiovas cular Therapy Agents furosemide 40 mg tablet 2023-05 00:00: 00 Yes [id number] edema 1 tablet DAILY 1 tablet DAILY (route: oral) Med Classific ation: Cardiovas cular Therapy Agents dextroamphe tamine-amph etamine 7.5 mg tablet 2023-05 00:00: 00 Yes [id number] attention 1 tablet DAILY 1 tablet DAILY (route: oral) Med Classific ation: Central Nervous System Agents metoprolol tartrate 25 mg tablet 2023-05 00:00: 00 Yes [id number] heart rate 0.5 tablet 2 TIMES DAILY 0.5 tablet 2 TIMES DAILY (route: oral) Med Classific ation: Cardiovas cular Therapy Agents cephalexin 500 mg capsule 2023-05 00:00: 00 04-10 23:59 :00 No [id number] CELLULITIS LLL 500 mg 4 TIMES DAILY 500 mg 4 TIMES DAILY (route: oral) Med Classific ation: Anti-Infe ctive Agents hydralazine 25 mg tablet 2023-05 00:00: 00 Yes [id number] HTN 25 mg 2 TIMES DAILY 25 [...] CONSULTING PHYSICIANS. RN TO OBSERVE AND ASSESS, WELLNESS PROGRAM 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/NETWORK CONTROL OPERATOR TO OBSERVE FOR RISK FOR FALLS AND INSTRUCT IN FALL PREVENTION, HOME SAFETY, MEDICATION MANAGEMENT, INFECTION PREVENTION, AND NUTRITION MANAGEMENT. RN/WELLNESS PROGRAM 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/NETWORK CONTROL OPERATOR NURSE MAY PERFORM O2 SATURATION LEVEL ON ADMISSION AND PRN FOR RN TO ASSESS/WELLNESS PROGRAM 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 TO OBSERVE PATIENT, WITH NOTIFICATION TO THE PHYSICIAN IF SATURATION IS 90% IN THE ABSENCE OF MORE SPECIFIC PARAMETERS FROM THE PHYSICIAN. AGENCY MAY PERFORM A RESUMPTION OF CARE VISIT FOLLOWING ANY HOSPITAL ADMISSION. RN/WELLNESS PROGRAM 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/NETWORK CONTROL OPERATOR TO MONITOR CO-MORBID CONDITIONS LISTED ON THE PLAN OF CARE AND ANY NEW CONDITIONS THAT PRESENT THEMSELVES DURING THIS EPISODE TO IDENTIFY CHANGES AND INTERVENE TO MINIMIZE COMPLICATIONS. [code = RN TO OBSERVE, ASSESS, EVALUATE, AND DEVELOP AN INDIVIDUALIZED PLAN OF CARE. AGENCY MAY ACCEPT ORDERS FROM CONSULTING PHYSICIANS. RN TO OBSERVE AND ASSESS, WELLNESS PROGRAM 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/NETWORK CONTROL OPERATOR TO OBSERVE FOR RISK FOR FALLS AND INSTRUCT IN FALL PREVENTION, HOME SAFETY, MEDICATION MANAGEMENT, INFECTION PREVENTION, AND NUTRITION MANAGEMENT. RN/WELLNESS PROGRAM 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/NETWORK CONTROL OPERATOR NURSE MAY PERFORM O2 SATURATION LEVEL ON ADMISSION AND PRN FOR RN TO ASSESS/WELLNESS PROGRAM 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 TO OBSERVE PATIENT, WITH NOTIFICATION TO THE PHYSICIAN IF SATURATION IS 90% IN THE ABSENCE OF MORE SPECIFIC PARAMETERS FROM THE PHYSICIAN. AGENCY MAY PERFORM A RESUMPTION OF CARE VISIT FOLLOWING ANY HOSPITAL ADMISSION. RN/WELLNESS PROGRAM 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/NETWORK CONTROL OPERATOR TO MONITOR CO-MORBID CONDITIONS LISTED ON THE PLAN OF CARE AND ANY NEW CONDITIONS THAT PRESENT THEMSELVES DURING THIS EPISODE TO IDENTIFY CHANGES AND INTERVENE TO MINIMIZE COMPLICATIONS.] Future Scheduled Test MEDICATION MANAGEMENT; RN/WELLNESS PROGRAM 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/NETWORK CONTROL OPERATOR TO REVIEW MEDICATIONS FOR INTERACTIONS, EFFECTIVENESS OF DRUG THERAPY, AND SIGNS/SYMPTOMS OF ADVERSE REACTIONS. MAY INSTRUCT AND REINFORCE MEDICATION TEACHING RELATED TO THE USE OF MEDICATIONS, DOSAGE, FREQUENCY, PURPOSE, SIDE EFFECTS, AND TO REPORT COMPLICATIONS. HELP SET UP BUBBLE PACKS [code = MEDICATION MANAGEMENT; RN/WELLNESS PROGRAM 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/NETWORK CONTROL OPERATOR TO REVIEW MEDICATIONS FOR INTERACTIONS, EFFECTIVENESS OF DRUG THERAPY, AND SIGNS/SYMPTOMS OF ADVERSE REACTIONS. MAY INSTRUCT AND REINFORCE MEDICATION TEACHING RELATED TO THE USE OF MEDICATIONS, DOSAGE, FREQUENCY, PURPOSE, SIDE EFFECTS, AND TO REPORT COMPLICATIONS. HELP SET UP BUBBLE PACKS] Future Scheduled Test RISK FOR H OSPITALIZATION; RN TO ASSESS/TEACH, NETWORK CONTROL OPERATOR/WELLNESS PROGRAM 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 TO OBSERVE/TEACH PATIENT/CAREGIVER ON RISK FOR HOSPITALIZATION/EMERGENCY ROOM VISITS, TEACH SIGNS AND SYMPTOMS THAT PUT PATIENT AT RISK, WHEN TO NOTIFY NURSE/PHYSICIAN OF COMPLICATIONS/DECLINE, AND WHEN TO CALL 911. [code = RISK FOR HOSPITALIZATION; RN TO ASSESS/TEACH, NETWORK CONTROL OPERATOR/WELLNESS PROGRAM 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 TO OBSERVE/TEACH PATIENT/CAREGIVER ON RISK FOR HOSPITALIZATION/EMERGENCY ROOM VISITS, TEACH SIGNS AND SYMPTOMS THAT PUT PATIENT AT RISK, WHEN TO NOTIFY NURSE/PHYSICIAN OF COMPLICATIONS/DECLINE, AND WHEN TO CALL 911.] Future Scheduled Test CARDIOVASC ULAR SYSTEM; RN TO ASSESS/TEACH, WELLNESS PROGRAM 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/NETWORK CONTROL OPERATOR TO OBSERVE/TEACH RELATED TO ALTERED CARDIOVASCULAR STATUS TO MINIMIZE COMPLICATIONS AND REDUCE HOSPITALIZATION. [code = CARDIOVASCULAR SYSTEM; RN TO ASSESS/TEACH, WELLNESS PROGRAM 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/NETWORK CONTROL OPERATOR TO OBSERVE/TEACH RELATED TO ALTERED CARDIOVASCULAR STATUS TO MINIMIZE COMPLICATIONS AND REDUCE HOSPITALIZATION.] Future Scheduled Test HYPERTENSI ON MANAGEMENT; RN TO ASSESS AND TEACH, WELLNESS PROGRAM 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/NETWORK CONTROL OPERATOR TO OBSERVE AND TEACH WARNING SIGNS AND SYMPTOMS TO AVOID HOSPITALIZATION. [code = HYPERTENSION MANAGEMENT; RN TO ASSESS AND TEACH, WELLNESS PROGRAM 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/NETWORK CONTROL OPERATOR TO OBSERVE AND TEACH WARNING SIGNS AND SYMPTOMS TO AVOID HOSPITALIZATION.] Future Scheduled Test ARRHYTHMIA MANAGEMENT; RN TO ASSESS AND TEACH, WELLNESS PROGRAM 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/NETWORK CONTROL OPERATOR TO OBSERVE AND TEACH WARNING SIGNS AND SYMPTOMS TO AVOID HOSPITALIZATION. [code = ARRHYTHMIA MANAGEMENT; RN TO ASSESS AND TEACH, WELLNESS PROGRAM 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/NETWORK CONTROL OPERATOR TO OBSERVE AND TEACH WARNING SIGNS AND SYMPTOMS TO AVOID HOSPITALIZATION.] Future Scheduled Test SKIN INTEG RITY RN TO ASSESS AND TEACH, WELLNESS PROGRAM 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/NETWORK CONTROL OPERATOR TO OBSERVE AND TEACH INTEGUMENTARY STATUS TO IDENTIFY CHANGES AND INTERVENE TO MINIMIZE COMPLICATIONS. PROVIDE SKILLED TEACHING OF GENERAL WOUND AND SKIN CARE AND PREVENTION RELATED TO POTENTIAL FOR ALTERED SKIN INTEGRITY [code = SKIN INTEGRITY RN TO ASSESS AND TEACH, WELLNESS PROGRAM 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/NETWORK CONTROL OPERATOR TO OBSERVE AND TEACH INTEGUMENTARY STATUS TO IDENTIFY CHANGES AND INTERVENE TO MINIMIZE COMPLICATIONS. PROVIDE SKILLED TEACHING OF GENERAL WOUND AND SKIN CARE AND PREVENTION RELATED TO POTENTIAL FOR ALTERED SKIN INTEGRITY ] Future Scheduled Test PAIN MANAG EMENT; RN TO ASSESS AND TEACH, NETWORK CONTROL OPERATOR/WELLNESS PROGRAM 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 TO OBSERVE AND TEACH AND PROVIDE EDUCATION ON PAIN MANAGEMENT TECHNIQUES. [code = PAIN MANAGEMENT; RN TO ASSESS AND TEACH, NETWORK CONTROL OPERATOR/WELLNESS PROGRAM 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 TO OBSERVE AND TEACH AND PROVIDE EDUCATION ON PAIN MANAGEMENT TECHNIQUES.] Future Scheduled Test FALL REDUC TION MANAGEMENT; RN TO ASSESS AND OBSERVE, WELLNESS PROGRAM 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/NETWORK CONTROL OPERATOR TO OBSERVE FALL RISK FACTORS AND EDUCATE PATIENT/CAREGIVER ON STRATEGIES TO MINIMIZE THE RISK OF FALLING. [code = FALL REDUCTION MANAGEMENT; RN TO ASSESS AND OBSERVE, WELLNESS PROGRAM 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/NETWORK CONTROL OPERATOR TO OBSERVE FALL RISK FACTORS AND EDUCATE PATIENT/CAREGIVER ON STRATEGIES TO MINIMIZE THE RISK OF FALLING.] Future Scheduled Test RESPIRATOR Y SYSTEM MANAGEMENT; RN TO ASSESS AND TEACH, WELLNESS PROGRAM 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/NETWORK CONTROL OPERATOR TO OBSERVE AND TEACH RELATED TO ALTERED RESPIRATORY STATUS TO MINIMIZE COMPLICATIONS AND REDUCE HOSPITALIZATION. [code = RESPIRATORY SYSTEM MANAGEMENT; RN TO ASSESS AND TEACH, WELLNESS PROGRAM 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/NETWORK CONTROL OPERATOR TO OBSERVE AND TEACH RELATED TO ALTERED [...] End Date/Time Encounter Type Admission Type Attending [facility] Care Department Encounter ID Discharge Date Discharge Status Discharge Condition Discharge Reason Percent Goals Met 2024-03-22 00:00:00 2024-07-19 00:00:00 Outpatient JOSE MARIARTIFIC DAGOBERTO [facility] [id number] .[id number]
--- OUTSIDE RECORDS SUMMARY | 2024-06-12 12:31 | XMS_ITS | Encounter Summary ---
Author Organization [employer] Address [address] [facility] 7t [place] [address] Care Team Providers Care Electronic Transaction Implementer Name Role Phone Sesar Pereyra MD Primary Care Provider [phone]- [phone] Reason for Visit * Reason Onset Date Comments fyi 05/28/2024 Encounter Details Date Type Department Care Team ([facility] st Contact Info) Description 05/28/2024 Telephone [facility] [address] [place] [address] Sesar Pereyra MD [address] [place] [address] fyi Social History Tobacco Use Types Packs/Day [...] - 05/28/2024 9:37 AM EST Tc from [facility] with [employer] [facility] informing pt verbalized to her that he been taking THD Gummies 2x a day morning and afternoon. Gummies are 10mg per gummy as he's aware of what he's taking. documented in this encounter Plan of Treatment Upcoming Encounters Date Type Department Care Team (Late st Contact Info) Description 06/13/2024 1:00 PM EST Office Visit [facility] [address] [place] [address] Sesar Pereyra MD [address] [place] [address] documented as of this encounter Visit Diagnoses Not on filedocumented in this encounter Additional Health Concerns Assessment Noted Time PHQ-9 Depression Total Score: 16 024 10:59 AM EDT documented as of this encounter Care Teams Electronic Transaction Implementer Relationship Specialty Start Date End Date Sesar Pereyra MD [address] [place] [address] PCP - General Internal Medicine 03/01/21 [facility] 03/22/24 documented as of this encounter
--- OUTSIDE RECORDS SUMMARY | 2024-06-12 12:31 | XMS_ITS | Encounter Summary ---
Author Organization [facility] Address [address] [place] [address] Care Team Providers Care Finish Patcher Name Role Phone Yolande Nicholas DO Primary Care Pro vider Unavailable Anuj Priest DO Primary Care Provider Judy Gardner, Pcp Primary Care Provider Unavailabl e Encounter Details Date Type Department Care Team Description 03/14/2019 Release of Information Medical Records [address] [place] [id number] Abstract, Provider Social History Tobacco Use Types [...] on filedocumented in this encounter Care Teams Finish Patcher Relationship Specialty Start Date End Date Yolande Nicholas DO PCP - General Internal Medicine 12/03/18 10/08/20 Anuj Priest DO PCP - General Internal Medicine 10/09/20 2 Jj, Pcp PCP - General Internal Medicine 06/17/21 documented as of this encounter
--- OUTSIDE RECORDS SUMMARY | 2024-06-12 12:31 | XMS_ITS | Encounter Summary ---
Author Organization [employer] Address [address] [facility] [address] [place] [address] Care Team Providers Care Shrub Planter Name Role Phone Sesar Pereyra MD Primary Care Provider [phone]- [phone] Reason for Visit * Reason Onset Date Comments Med Refill 05/27/2024 Encounter Details Date Type Department Care Team ([facility] st Contact Info) Description 05/27/2024 Refill [facility] PEDS [address] [place] [address] Sesar Pereyra MD [address] [place] [address] Social History Tobacco Use Types Packs/Day Years [...] 7.5 MG tablet To be sent to: [facility] - [place], [place] - [address] [place] [address] [place] documented in this encounter Plan of Treatment Upcoming Encounters Date Type Department Care Team (Late st Contact Info) Description 06/13/2024 1:00 PM EST Office Visit [facility] [address] [place] [address] Sesar Pereyra MD [address] [place] [address] documented as of this encounter Visit Diagnoses Not on filedocumented in this encounter Additional Health Concerns Assessment Noted Time PHQ-9 Depression Total Score: 16 024 10:59 AM EDT documented as of this encounter Care Teams Shrub Planter Relationship Specialty Start Date End Date Sesar Pereyra MD [address] [place] [address] PCP - General Internal Medicine 03/01/21 [facility] 03/22/24 documented as of this encounter
--- OUTSIDE RECORDS SUMMARY | 2024-06-12 12:31 | XMS_ITS | Encounter Summary ---
Author Organization [employer] [facility] Address [address] [place] [address] Care Team Providers Care Cap Sizer Name Role Phone Yolande Nicholas DO Primary Care Pro vider Unavailable Anuj Priest DO Primary Care Provider [facility], Pcp Primary Care Provider Unavailabl e Reason for Visit * Reason Onset Date Comments Nitrating Acid Mixer Feedback 02/18/[address] Encounter Details Date Type Department Care Team Description 02/18/2019 Telephone Adult [address] [address] Yolande Nicholas DO Nitrating Acid Mixer Feedback (Low Dose CT) Social History Tobacco Use Types Packs/Day Years Used Date Smoking Tobacco: Former Cigarettes 1 35 Q uit: 07/26/2005 Smokeless Tobacco: Never Alcohol Use Standard Drinks/Week Comments No 0 (1 standard drink = 0.6 oz pur e alcohol) prior heavy stopped 3. Sex Assigned at Date Recorded Not on file documented as of this encounter Miscellaneous Notes * Telephone Encounter - Pranav Carvajal - 02/18/2019 12:32 PM EDT Yolande Gomez You palced an order for Low Dose Ct on 02/08/2019 but per message below from Deborah: According to conversation w/pt.02/18/19 at 12:03pm Alex does not qualify for LCSP secondary to his quit history = 35yrs. (1983). documented in this encounter Plan of Treatment Not on file documented as of this encounter Visit Diagnoses Not on filedocumented in this encounter Care Teams Cap Sizer Relationship Specialty Start Date End Date Yolande Nicholas DO PCP - General Internal Medicine 12/03/18 10/08/20 Anuj Priest DO PCP - General Internal Medicine 10/09/20 2 [facility], Pcp PCP - General Internal Medicine 06/17/21 documented as of this encounter
--- OUTSIDE RECORDS SUMMARY | 2024-06-12 12:31 | XMS_ITS | Encounter Summary ---
Author Organization [facility] Address [address] [place] [address] Care Team Providers Care Wallpaper Printer Name Role Phone Yolande Nicholas DO Primary Care Pro vider Unavailable Anuj Priest DO Primary Care Provider [facility], Pcp Primary Care Provider Unavailabl e Reason for Visit * Reason Onset Date Comments Faxed Order 03/29/2020 Encounter Details Date Type Department Care Team Description 03/29/2020 Telephone Adult [address] [address] Yolande Nicholas DO Faxed Order Social History [...] Telephone Encounter - Gerri Parra - 03/29/2020 2:14 PM EST JARROD XAVIER IS FAXING ORDERS TO BE SIGN AND FAX BACK TO [phone]. documented in this encounter Plan of Treatment Not on file documented as of this encounter Visit Diagnoses Not on filedocumented in this encounter Care Teams Wallpaper Printer Relationship Specialty Start Date End Date Yolande Nicholas DO PCP - General Internal Medicine 12/03/18 10/08/20 Anuj Priest DO PCP - General Internal Medicine 10/09/20 2 [facility], Pcp PCP - General Internal Medicine 06/17/21 documented as of this encounter
--- OUTSIDE RECORDS SUMMARY | 2024-06-12 12:31 | XMS_ITS | Encounter Summary ---
Author Organization [facility] Address [address] [place] [address] Care Team Providers Care Commercial Finance Manager Name Role Phone Yolande Nicholas DO Primary Care Pro vider Unavailable Anuj Priest DO Primary Care Provider [facility], Pcp Primary Care Provider Unavailmulticare health e Encounter Details Date Type Department Care Team Description 05/20/2019 Release of Information Medical Records [address] [place] [id number] Abstract, Provider Social History Tobacco Use Types [...] EST AUTHORIZATION TO OBTAIN RECORDS MAILED TO [facility]. documented in this encounter Plan of Treatment Not on file documented as of this encounter Visit Diagnoses Not on filedocumented in this encounter Care Teams Commercial Finance Manager Relationship Specialty Start Date End Date Yolande Nicholas DO PCP - General Internal Medicine 12/03/18 10/08/20 Anuj Priest DO PCP - General Internal Medicine 10/09/20 2 2 [facility], Pcp PCP - General Internal Medicine 06/17/21 documented as of this encounter
--- OUTSIDE RECORDS SUMMARY | 2024-06-12 12:31 | XMS_ITS | Encounter Summary ---
Author Organization [facility] Address [address] [place] [address] Care Team Providers Care Molybdenum Steamer Operator Name Role Phone Ghassan Burciaga MD Primary Care Provider Unavail able Pierre Arevalo MD Primary Care Provider Judy vailable Gerson Dawson MD Primary Care Provider Unavail able [facility], Pcp Primary Care Provider Unavailabl e Coleman Mccarthy MD Primary Care Provider Unavaila Ayo Demarco MD Primary Care Provider [phone] Annalee Jones MD Primary Care Provider Un available Pascual Nicholasabela DO Primary Care Pro vider Unavailable Anuj Priest DO Primary Care Provider Judy vailable [facility], Pcp Primary Care Provider Unavailabl e Encounter Details Date Type Department Care Team Description 09/17/2010 Health Care Administrator Report Medical Records [address] [place] [address] Jayshree Meade Social History Tobacco Use Types [...] on filedocumented in this encounter Care Teams Molybdenum Steamer Operator Relationship Specialty Start Date End Date Ghassan Burciaga MD PCP - General 07/24/00 05/06/13 Pierre Arevalo MD PCP - General Internal Medicine 05/07/13 4 Gerson Dawson MD PCP - General Internal Medicine 01/30/14 03/20/14 [facility], Pcp PCP - General Internal Medicine 03/21/14 05/06/14 Coleman Mccarthy MD PCP - General Internal Medicine 05/07/14 07/18/16 Ayo Carpio MD [address] [place] [address] PCP - General Internal Medicine 07/19/16 01/05/17 Annalee Jones MD [address] [place] [address] PCP - General Internal Medicine 01/06/17 12/02/18 Yolande Nicholas DO [address] [place] [address] PCP - General Internal Medicine 12/03/18 10/08/20 Anuj Priest DO [address] [place] [address] PCP - General Internal Medicine 10/09/20 06/16/21 [facility], Pcp PCP - General Internal Medicine 06/17/21 documented as of this encounter
--- OUTSIDE RECORDS SUMMARY | 2024-06-12 12:31 | XMS_ITS | Encounter Summary ---
Author Organization [employer] Address [address] [facility] 7t [place] [address] Care Team Providers Care Risk Control Analyst Name Role Phone Sesar Pereyra MD Primary Care Provider [phone] Reason for Visit * Reason Onset Date Comments FYI 10/07/2022 Encounter Details Date Type Department Care Team ([facility] st Contact Info) Description 10/07/2022 Telephone [facility] [address] [place] [address] Sesar Pereyra MD [address] [place] [address] FYI Social History Tobacco Use Types Packs/Day [...] any questions or concerns please contact at [phone] documented in this encounter Plan of Treatment Upcoming Encounters Date Type Department Care Team ([facility] st Contact Info) Description 06/13/2024 1:00 PM EST Office Visit [facility] MED & PEDS [address] [place] [address] Sesar Pereyra MD [address] [place], [place] [phone] documented as of this encounter Visit Diagnoses Not on filedocumented in this encounter Care Teams Risk Control Analyst Relationship Specialty Start Date End Date Sesar Pereyra MD [address] [place] [address] PCP - General Internal Medicine 03/01/21 [facility] [place] [facility] 03/22/24 documented as of this encounter
--- OUTSIDE RECORDS SUMMARY | 2024-06-12 12:31 | XMS_ITS | Encounter Summary ---
Author Organization [employer] Address [address] [facility] 7t [place] [address] Care Team Providers Care Horticultural Technical Officer Name Role Phone Sesar Pereyra MD Primary Care Provider [phone]- [phone] Reason for Visit * Reason Onset Date Comments Med Refill 04/18/2024 Encounter Details Date Type Department Care Team ([facility] st Contact Info) Description 04/18/2024 Telephone [facility] MEDICINE [address] [place] [address] Sesar Pereyra MD [address] [place] [address] Med Refill Social History Tobacco Use Types [...] needing refill : To be sent to: [id number] - [place], [place] - [address] [place] [address] STEET documented in this encounter Plan of Treatment Upcoming Encounters Date Type Department Care Team (Late st Contact Info) Description 06/13/2024 1:00 PM EST Office Visit [facility] MED & PEDS [address] [place] [address] Sesar Pereyra MD [address] [place] [address] documented as of this encounter Visit Diagnoses Not on filedocumented in this encounter Additional Health Concerns Assessment Noted Time PHQ-9 Depression Total Score: 16 024 10:59 AM EDT documented as of this encounter Care Teams Horticultural Technical Officer Relationship Specialty Start Date End Date Sesar Pereyra MD [address] [place] [address] PCP - General Internal Medicine 11/1/21 [facility] 03/22/24 documented as of this encounter
--- OUTSIDE RECORDS SUMMARY | 2024-06-12 12:31 | XMS_ITS | Encounter Summary ---
Author Organization [facility] Address [address] [place] [address] Care Team Providers Care Car Lubricator Name Role Phone Yolande Nicholas DO Primary Care Pro vider Unavailable Anuj Priest DO Primary Care Provider [facility], Pcp Primary Care Provider Unavailabl e Reason for Visit * Reason Onset Date Comments Faxed Order 06/17/2020 Encounter Details Date Type Department Care Team Description 06/17/2020 Telephone Adult [address] [address] Yolande Nicholas DO Faxed Order Social History [...] * Telephone Encounter - Delfina Bernabe - 06/17/2020 8:44 AM EST Orders from [facility] to be signed and faxed back to [phone] . documented in this encounter Plan of Treatment Not on file documented as of this encounter Visit Diagnoses Not on filedocumented in this encounter Care Teams Car Lubricator Relationship Specialty Start Date End Date Yolande Nicholas DO PCP - General Internal Medicine 12/03/18 10/08/20 Anuj Priest DO PCP - General Internal Medicine 10/09/20 2 [facility], Pcp PCP - General Internal Medicine 06/17/21 documented as of this encounter
--- OUTSIDE RECORDS SUMMARY | 2024-06-12 12:31 | XMS_ITS | Encounter Summary ---
Author Organization [employer] Address [address] [facility] 7t [place] [address] Care Team Providers Care Research Kennel Supervisor Name Role Phone Sesar Pereyra MD Primary Care Provider [phone]- [phone] Reason for Visit * Reason Comments Med Refill Encounter Details Date Type Department Care Team ([facility] Contact Info) Description 10/26/2022 Refill [facility] MED & PEDS [address] [place] [address] Sesar Pereyra MD [address] [place] [address] Social History Tobacco Use Types Packs/Day Years [...] 1:00 PM EST Office Visit [facility] MED & PEDS [address] [place] [address] Sesar Pereyra MD [address] [place] [address] documented as of this encounter Visit Diagnoses Not on filedocumented in this encounter Care Teams Research Kennel Supervisor Relationship Specialty Start Date End Date Sesar Pereyra MD [address] [place] [address] PCP - General Internal Medicine 03/01/21 [facility] 03/22/24 documented as of this encounter
--- OUTSIDE RECORDS SUMMARY | 2024-06-12 12:31 | XMS_ITS | Encounter Summary ---
Author Organization [facility] Address [address] [place] [address] Care Team Providers Care Medical Dosimetrist Name Role Phone Yolande Nicholas DO Primary Care Pro vider Unavailable Anuj Priest DO Primary Care Provider Judy álvarez [facility], Pcp Primary Care Provider Unavailabl e Encounter Details Date Type Department Care Team Description 05/04/2020 Ballast Cleaning Operator Report Medical Records [address] [place] [address] Dhruv Garcia MD Social History Tobacco Use [...] on filedocumented in this encounter Care Teams Medical Dosimetrist Relationship Specialty Start Date End Date Yolande Nicholas DO PCP - General Internal Medicine 12/03/18 10/08/20 Anuj Priest DO PCP - General Internal Medicine 10/09/20 [facility] [place], Pcp PCP - General Internal Medicine 06/17/21 documented as of this encounter
--- OUTSIDE RECORDS SUMMARY | 2024-06-12 12:31 | XMS_ITS | Encounter Summary ---
Author Organization [facility] Address [address] [place] [address] Care Team Providers Care Archivist Name Role Phone Ghassan Burciaga MD Primary Care Provider Unavail able Pierre Arevalo MD Primary Care Provider Judy vailable Gerson Dawson MD Primary Care Provider Unavail able [facility], Pcp Primary Care Provider Unavailabl e Coleman Mccarthy MD Primary Care Provider Unavaila Ayo Demarco MD Primary Care Provider [phone] Annalee Jones MD Primary Care Provider Un available Pascual Nicholasabela DO Primary Care Pro vider Unavailable Anuj Priest DO Primary Care Provider Judy vailable [facility], Pcp Primary Care Provider Unavailabl e Encounter Details Date Type Department Care Team Description 11/04/2006 Hospital Medical Records [address] [place], [place] [id number] [place] [address] Social History Tobacco Use Types Packs/Day Years [...] on filedocumented in this encounter Care Teams Archivist Relationship Specialty Start Date End Date Ghassan Burciaga MD PCP - General 07/24/00 05/06/13 Pierre Arevalo MD PCP - General Internal Medicine 05/07/13 4 Gerson Dawson MD PCP - General Internal Medicine 01/30/14 03/20/14 [facility] Pcp PCP - General Internal Medicine 03/21/14 05/06/14 Coleman Mccarthy MD PCP - General Internal Medicine 05/07/14 07/18/16 Ayo Carpio MD [address] [place], [place] [id number] PCP - General Internal Medicine 07/19/16 01/05/17 Annalee Jones MD [address] [place], [place] [address] PCP - General Internal Medicine 01/06/17 12/02/18 Yolande Nicholas DO [address] [place] [address] PCP - General Internal Medicine 12/03/18 10/08/20 Anuj Priest DO [address] [place] [address] PCP - General Internal Medicine 10/09/20 06/16/21 [facility], Pcp PCP - General Internal Medicine 06/17/21 documented as of this encounter
--- OUTSIDE RECORDS SUMMARY | 2024-06-12 12:31 | XMS_ITS | Encounter Summary ---
Author Organization [facility] Address [address] [place] [address] Care Team Providers Care Manager Athletics Name Role Phone Yolande Nicholas DO Primary Care Pro vider Unavailable Anuj Priest DO Primary Care Provider [facility], Pcp Primary Care Provider [facility] Encounter Details Date Type Department Care Team Description 03/18/2020 Orders Only Adult Medicine [address] [address] Yolande Nicholas DO Social History Tobacco Use [...] filedocumented in this encounter Care Teams Manager Athletics Relationship Specialty Start Date End Date Yolande Nicholas DO PCP - General Internal Medicine 12/03/18 10/08/20 Anuj Priest DO PCP - General Internal Medicine 10/09/20 2 2 [facility], Pcp PCP - General Internal Medicine 06/17/21 documented as of this encounter
== END 2024-06-12 11:27 | disposition home or self-care (01) ==
PROVIDERS: PCP Internal Medicine; Visit Provider Internal Medicine Nephrology
DX: I12.9 Hypertensive chronic kidney disease with stage 1 through stage 4 chronic kidney disease, or unspecified chronic kidney disease (principal); N18.31 Chronic kidney disease, stage 3a; Z85.528 Personal history of other malignant neoplasm of kidney
CPT/HCPCS: 99214

== ENCOUNTER 2024-06-12 10:42 | Outpatient (REF) | payer MEDICARE, MEDICAID, SELFPAY ==
--- OUTSIDE RECORDS SUMMARY | 2024-06-12 13:28 | XMS_ITS | Encounter Summary ---
Author Organization [employer] Address [address] [facility] [address] [place] [address] Care Team Providers Care Sales Agent Insurance Name Role Phone Sesar Pereyra MD Primary Care Provider [phone] Encounter Details Date Type Department Care Team (Late st Contact Info) Description 04/02/2024 Orders Only [facility] [address] [place] [address] Provider, MD Jazmyn Social History Tobacco Use [...] [facility] MED & PEDS [address] [place] [address] Sesar Pereyra MD [address] [place] [address] documented as of this encounter Procedures Procedure [...] as of this encounter Care Teams Sales Agent Insurance Relationship Specialty Start Date End Date Sesar Pereyra MD [address] [place] [address] PCP - General Internal Medicine 03/01/21 [facility] 03/22/24 documented as of this encounter
--- OUTSIDE RECORDS SUMMARY | 2024-06-12 13:28 | XMS_ITS | Encounter Summary ---
Author Organization [employer] Address [address] [facility] 7t [place] [address] Care Team Providers Care Sales Representative Electric Service Name Role Phone Sesar Pereyra MD Primary Care Provider [phone] Reason for Visit * Reason Onset Date Comments Lab Orders 05/30/2024 Referral 05/30/2024 Encounter Details Date Type Department Care Team (Late st Contact Info) Description 05/30/2024 Telephone [facility] MEDICINE [address] [place] [address] Sesar Pereyra MD [address] [place] [address] Lab Orders; Referral Social History Tobacco Use [...] Description 06/13/2024 1:00 PM EST Office Visit [facility] MED & PEDS [address] [place] [address] Sesar Pereyra MD [address] [place] [address] documented as of this encounter Visit Diagnoses Not on filedocumented in this encounter Additional Health Concerns Assessment Noted Time PHQ-9 Depression Total Score: 16 024 10:59 AM EDT documented as of this encounter Care Teams Sales Representative Electric Service Relationship Specialty Start Date End Date Sesar Pereyra MD [address] [place] [address] PCP - General Internal Medicine 03/01/21 [facility] 03/22/24 documented as of this encounter
--- OUTSIDE RECORDS SUMMARY | 2024-06-12 13:28 | XMS_ITS | Encounter Summary ---
Author Organization [employer] Address [address] [facility] 7t [place] [address] Care Team Providers Care Mission Manager Name Role Phone Sesar Pereyra MD Primary Care Provider [phone]- [phone] Reason for Visit * Reason Onset Date Comments Med Refill 04/02/2024 Encounter Details Date Type Department Care Team ([facility] st Contact Info) Description 04/02/2024 Telephone [facility] MEDICINE [address] [place] [address] Sesar Pereyra MD [address] [place] [address] Med Refill Social History Tobacco Use Types [...] 9:39 AM EST Medication was sent to [facility] on 04/01/24 #30 with 11 refills. * Telephone Encounter - Miri Young - 04/02/2024 9:33 AM EST TC from pt requesting medication refill. Medications needing refill : metoprolol tartrate (Lopressor) 25 MG tablet To be sent to: [facility] # [facility] documented in this encounter Plan of Treatment Upcoming Encounters Date Type Department Care Team (Late st Contact Info) Description 06/13/2024 1:00 PM EST Office Visit [facility] MED & PEDS [address] [place] [address] Sesar Pereyra MD [address] [place] [address] documented as of this encounter Visit Diagnoses Not on filedocumented in this encounter Additional Health Concerns Assessment Noted Time PHQ-9 Depression Total Score: 16 024 10:59 AM EDT documented as of this encounter Care Teams Mission Manager Relationship Specialty Start Date End Date Sesar Pereyra MD [address] [place] [address] PCP - General Internal Medicine 03/01/21 [facility] 03/22/24 documented as of this encounter
--- OUTSIDE RECORDS SUMMARY | 2024-06-12 13:28 | XMS_ITS | Encounter Summary ---
Author Organization [employer] Address [address] [facility] 7t [place] [address] Care Team Providers Care License Issuer Name Role Phone Sesar Pereyra MD Primary Care Provider [phone]- [phone] Reason for Visit * Reason Comments Med Refill Encounter Details Date Type Department Care Team ([facility] Contact Info) Description 10/26/2022 Refill [facility] MED & PEDS [address] [place] [address] Sesar Pereyra MD [address] [place] [address] Social History Tobacco Use Types Packs/Day Years [...] [facility] [address] [place] [address] Sesar Pereyra MD [address] [place] [address] documented as of this encounter Visit Diagnoses Not on filedocumented in this encounter Care Teams License Issuer Relationship Specialty Start Date End Date Sesar Pereyra MD [address] [place] [address] PCP - General Internal Medicine 03/01/21 [facility] 03/22/24 documented as of this encounter
--- OUTSIDE RECORDS SUMMARY | 2024-06-12 13:28 | XMS_ITS | Encounter Summary ---
Author Organization [employer] Address [address] [facility] 7[address] [place] [address] Care Team Providers Care Neon Glass Bender Name Role Phone Sesar Pereyra MD Primary Care Provider [phone]- [phone] Reason for Visit * Reason Onset Date Comments Med Refill 04/28/2024 Encounter Details Date Type Department Care Team ([facility] st Contact Info) Description 04/28/2024 Refill [facility] MED & PEDS [address] [place] [address] Sesar Pereyra MD [address] [place] [address] Social History Tobacco Use Types Packs/Day Years [...] 1:00 PM EST Office Visit [facility] MED & PEDS [address] [place] [address] Sesar Pereyra MD [address] [place] [address] documented as of this encounter Visit Diagnoses Not on filedocumented in this encounter Additional Health Concerns Assessment Noted Time PHQ-9 Depression Total Score: 16 024 10:59 AM EDT documented as of this encounter Care Teams Neon Glass Bender Relationship Specialty Start Date End Date Sesar Pereyra MD [address] [place] [address] PCP - General Internal Medicine 03/01/21 [facility] 03/22[facility] documented as of this encounter
--- OUTSIDE RECORDS SUMMARY | 2024-06-12 13:28 | XMS_ITS | Clinical Summary ---
Author Organization Unknown Care Team Providers Care National Business Director Name Role Phone MARCO RAMIREZ, POOJA Unavailable Unavailabl e JIMENEZ PT, COURTNEY Unavailable Unavailable SPAFFORD OT, DAGO Unavailable Unavailable CONDINO FERNY/CALZADA, ANGUS Unavailable Unav ailable FECTEAU ACCREDITED LEGAL SECRETARY, JANETT Unavailable Unavailable LESLYE RN, DAGOBERTO Unavailable Unavailab abraham CARRION DIRECTOR EMERGENCY DEPARTMENT, ANTONIO Unavailable Unavailable JOSE RAFAEL SKAGGSN, YORDAN Unavailable Unavail able Payers Payer Name Policy Type Policy Number Effective Date Expira tion Date [facility] [id number] Problems Condition Name Condition Details Condition Category [...] 2023-05 00:00: 00 ATHSCL HEART DISEASE OF [place] CORONARY ARTERY W/O ANG PCTRS Active [...] HISTORY OF COVID-19 Active 2023-05 00:00: 00 SHELTER (CURRENT) USE OF ANTICOAGULAN TS Active 2023-05 [...] 2023-05 00:00: 00 05-16 23:59 :00 No [id number] PAIN 15 mg EVERY 6 HOURS NEEDED 15 mg EVERY 6 HOURS NEEDED (route: oral) Med Classific ation: Analgesic , Anti-infl ammatory or Antipyret ic clonazepam 0.5 mg tablet 2023-05 00:00: 00 Yes [id number] ANXIETY 0.5 mg 2 TIMES DAILY 0.5 mg 2 TIMES DAILY (route: oral) Med Classific ation: Central Nervous System Agents lisinopril 40 mg tablet 2023-05 00:00: 00 03-21 23:59 :00 No [id number] CAD 40 mg DAILY 40 mg DAILY (route: oral) Med Classific ation: Cardiovas cular Therapy Agents atorvastati n 80 mg tablet 2023-05 00:00: 00 Yes [id number] HYPERTENSIO N 80 mg DAILY 80 mg DAILY (route: oral) Med Classific ation: Cardiovas cular Therapy Agents cilostazol 50 mg tablet 2023-05 00:00: 00 Yes [id number] HYPERTENSIO N 50 mg 2 TIMES DAILY 50 mg 2 TIMES DAILY (route: oral) Med Classific ation: Hematolog ical Agents clopidogrel 75 mg tablet 2023-05 00:00: 00 03-21 23:59 :00 No [id number] CORONARY ARTERY DISEASE 75 mg DAILY 75 mg DAILY (route: oral) Med Classific ation: Hematolog ical Agents Eliquis 5 mg tablet 2023-05 00:00: 00 Yes [id number] ANTI ARRHYTHMIC 5 mg 2 TIMES DAILY 5 mg 2 TIMES DAILY (route: oral) Med Classific ation: Hematolog ical Agents furosemide 40 mg tablet 2023-05 00:00: 00 03-21 23:59 :00 No [id number] BPH 40 mg DAILY 40 mg DAILY (route: oral) Alternate Route: INTRA-MUS CULAR. Med Classific ation: Cardiovas cular Therapy Agents metoprolol tartrate 50 mg tablet 2023-05 00:00: 00 03-22 23:59 :00 No [id number] CAD 50 mg DAILY 50 mg DAILY (route: oral) Med Classific ation: Cardiovas cular Therapy Agents quetiapine 25 mg tablet 2023-05 00:00: 00 Yes [id number] MOOD STABILIZER 25 mg 2 TIMES DAILY 25 mg 2 TIMES DAILY (route: oral) Med Classific ation: Central Nervous System Agents sertraline 50 mg tablet 2023-05 00:00: 00 Yes [id number] MOOD STABILIZER 50 mg DAILY 50 mg DAILY (route: oral) Med Classific ation: Central Nervous System Agents tamsulosin 0.4 mg capsule 2023-05 00:00: 00 Yes [id number] BPH 0.4 mg DAILY 0.4 mg DAILY (route: oral) Med Classific ation: Genitouri nary Therapy docusate sodium 100 mg tablet 2023-05 00:00: 00 Yes [id number] CONSTIPATIO N 100 mg DAILY 100 mg DAILY (route: oral) Med Classific ation: Gastroint estinal Therapy Agents gabapentin 100 mg capsule 2023-05 00:00: 00 Yes [id number] PAIN 1-3 capsule BEDTIME 1-3 capsule BEDTIME (route: oral) Med Classific ation: Central Nervous System Agents metoprolol tartrate 25 mg tablet 2023-05 00:00: 00 03-27 16:09 :43.1 53 No [id number] HYPERTENSIO N 25 mg 2 TIMES DAILY 25 mg 2 TIMES DAILY (route: oral) Med Classific ation: Cardiovas cular Therapy Agents Multaq 400 mg tablet 2023-05 00:00: 00 Yes [id number] ANTIARRHYTH MICHAEL 400 mg 2 TIMES DAILY 400 mg 2 TIMES DAILY (route: oral) Med Classific ation: Cardiovas cular Therapy Agents furosemide 40 mg tablet 2023-05 00:00: 00 Yes [id number] edema 1 tablet DAILY 1 tablet DAILY (route: oral) Med Classific ation: Cardiovas cular Therapy Agents dextroamphe tamine-amph etamine 7.5 mg tablet 2023-05 00:00: 00 Yes [id number] attention 1 tablet DAILY 1 tablet DAILY (route: oral) Med Classific ation: Central Nervous System Agents metoprolol tartrate 25 mg tablet 2023-05 00:00: 00 Yes [id number] heart rate 0.5 tablet 2 TIMES DAILY 0.5 tablet 2 TIMES DAILY (route: oral) Med Classific ation: Cardiovas cular Therapy Agents cephalexin 500 mg capsule 2023-05 00:00: 00 04-10 23:59 :00 No [id number] CELLULITIS LLL 500 mg 4 TIMES DAILY 500 mg 4 TIMES DAILY (route: oral) Med Classific ation: Anti-Infe ctive Agents hydralazine 25 mg tablet 2023-05 00:00: 00 Yes [id number] HTN 25 mg 2 TIMES DAILY 25 [...] CONSULTING PHYSICIANS. RN TO OBSERVE AND ASSESS, MEDICAL AND HEALTH SERVICES MANAGER/ORTHOPEDICALLY IMPAIRED TEACHER TO OBSERVE FOR RISK FOR FALLS AND INSTRUCT IN FALL PREVENTION, HOME SAFETY, MEDICATION MANAGEMENT, INFECTION PREVENTION, AND NUTRITION MANAGEMENT. RN/MEDICAL AND HEALTH SERVICES MANAGER/ORTHOPEDICALLY IMPAIRED TEACHER NURSE MAY PERFORM O2 SATURATION LEVEL ON ADMISSION AND PRN FOR RN TO ASSESS/MEDICAL AND HEALTH SERVICES MANAGER TO OBSERVE PATIENT, WITH NOTIFICATION TO THE PHYSICIAN IF SATURATION IS 90% IN THE ABSENCE OF MORE SPECIFIC PARAMETERS FROM THE PHYSICIAN. AGENCY MAY PERFORM A RESUMPTION OF CARE VISIT FOLLOWING ANY HOSPITAL ADMISSION. RN/MEDICAL AND HEALTH SERVICES MANAGER/ORTHOPEDICALLY IMPAIRED TEACHER TO MONITOR CO-MORBID CONDITIONS LISTED ON THE PLAN OF CARE AND ANY NEW CONDITIONS THAT PRESENT THEMSELVES DURING THIS EPISODE TO IDENTIFY CHANGES AND INTERVENE TO MINIMIZE COMPLICATIONS. [code = RN TO OBSERVE, ASSESS, EVALUATE, AND DEVELOP AN INDIVIDUALIZED PLAN OF CARE. AGENCY MAY ACCEPT ORDERS FROM CONSULTING PHYSICIANS. RN TO OBSERVE AND ASSESS, MEDICAL AND HEALTH SERVICES MANAGER/ORTHOPEDICALLY IMPAIRED TEACHER TO OBSERVE FOR RISK FOR FALLS AND INSTRUCT IN FALL PREVENTION, HOME SAFETY, MEDICATION MANAGEMENT, INFECTION PREVENTION, AND NUTRITION MANAGEMENT. RN/MEDICAL AND HEALTH SERVICES MANAGER/ORTHOPEDICALLY IMPAIRED TEACHER NURSE MAY PERFORM O2 SATURATION LEVEL ON ADMISSION AND PRN FOR RN TO ASSESS/MEDICAL AND HEALTH SERVICES MANAGER TO OBSERVE PATIENT, WITH NOTIFICATION TO THE PHYSICIAN IF SATURATION IS 90% IN THE ABSENCE OF MORE SPECIFIC PARAMETERS FROM THE PHYSICIAN. AGENCY MAY PERFORM A RESUMPTION OF CARE VISIT FOLLOWING ANY HOSPITAL ADMISSION. RN/MEDICAL AND HEALTH SERVICES MANAGER/ORTHOPEDICALLY IMPAIRED TEACHER TO MONITOR CO-MORBID CONDITIONS LISTED ON THE PLAN OF CARE AND ANY NEW CONDITIONS THAT PRESENT THEMSELVES DURING THIS EPISODE TO IDENTIFY CHANGES AND INTERVENE TO MINIMIZE COMPLICATIONS.] Future Scheduled Test MEDICATION MANAGEMENT; RN/MEDICAL AND HEALTH SERVICES MANAGER/ORTHOPEDICALLY IMPAIRED TEACHER TO REVIEW MEDICATIONS FOR INTERACTIONS, EFFECTIVENESS OF DRUG THERAPY, AND SIGNS/SYMPTOMS OF ADVERSE REACTIONS. MAY INSTRUCT AND REINFORCE MEDICATION TEACHING RELATED TO THE USE OF MEDICATIONS, DOSAGE, FREQUENCY, PURPOSE, SIDE EFFECTS, AND TO REPORT COMPLICATIONS. HELP SET UP BUBBLE PACKS [code = MEDICATION MANAGEMENT; RN/MEDICAL AND HEALTH SERVICES MANAGER/ORTHOPEDICALLY IMPAIRED TEACHER TO REVIEW MEDICATIONS FOR INTERACTIONS, EFFECTIVENESS OF DRUG THERAPY, AND SIGNS/SYMPTOMS OF ADVERSE REACTIONS. MAY INSTRUCT AND REINFORCE MEDICATION TEACHING RELATED TO THE USE OF MEDICATIONS, DOSAGE, FREQUENCY, PURPOSE, SIDE EFFECTS, AND TO REPORT COMPLICATIONS. HELP SET UP BUBBLE PACKS] Future Scheduled Test RISK FOR H OSPITALIZATION; RN TO ASSESS/TEACH, ORTHOPEDICALLY IMPAIRED TEACHER/MEDICAL AND HEALTH SERVICES MANAGER TO OBSERVE/TEACH PATIENT/CAREGIVER ON RISK FOR HOSPITALIZATION/EMERGENCY ROOM VISITS, TEACH SIGNS AND SYMPTOMS THAT PUT PATIENT AT RISK, WHEN TO NOTIFY NURSE/PHYSICIAN OF COMPLICATIONS/DECLINE, AND WHEN TO CALL 911. [code = RISK FOR HOSPITALIZATION; RN TO ASSESS/TEACH, ORTHOPEDICALLY IMPAIRED TEACHER/MEDICAL AND HEALTH SERVICES MANAGER TO OBSERVE/TEACH PATIENT/CAREGIVER ON RISK FOR HOSPITALIZATION/EMERGENCY ROOM VISITS, TEACH SIGNS AND SYMPTOMS THAT PUT PATIENT AT RISK, WHEN TO NOTIFY NURSE/PHYSICIAN OF COMPLICATIONS/DECLINE, AND WHEN TO CALL 911.] Future Scheduled Test CARDIOVASC ULAR SYSTEM; RN TO ASSESS/TEACH, MEDICAL AND HEALTH SERVICES MANAGER/ORTHOPEDICALLY IMPAIRED TEACHER TO OBSERVE/TEACH RELATED TO ALTERED CARDIOVASCULAR STATUS TO MINIMIZE COMPLICATIONS AND REDUCE HOSPITALIZATION. [code = CARDIOVASCULAR SYSTEM; RN TO ASSESS/TEACH, MEDICAL AND HEALTH SERVICES MANAGER/ORTHOPEDICALLY IMPAIRED TEACHER TO OBSERVE/TEACH RELATED TO ALTERED CARDIOVASCULAR STATUS TO MINIMIZE COMPLICATIONS AND REDUCE HOSPITALIZATION.] Future Scheduled Test HYPERTENSI ON MANAGEMENT; RN TO ASSESS AND TEACH, MEDICAL AND HEALTH SERVICES MANAGER/ORTHOPEDICALLY IMPAIRED TEACHER TO OBSERVE AND TEACH WARNING SIGNS AND SYMPTOMS TO AVOID HOSPITALIZATION. [code = HYPERTENSION MANAGEMENT; RN TO ASSESS AND TEACH, MEDICAL AND HEALTH SERVICES MANAGER/ORTHOPEDICALLY IMPAIRED TEACHER TO OBSERVE AND TEACH WARNING SIGNS AND SYMPTOMS TO AVOID HOSPITALIZATION.] Future Scheduled Test ARRHYTHMIA MANAGEMENT; RN TO ASSESS AND TEACH, MEDICAL AND HEALTH SERVICES MANAGER/ORTHOPEDICALLY IMPAIRED TEACHER TO OBSERVE AND TEACH WARNING SIGNS AND SYMPTOMS TO AVOID HOSPITALIZATION. [code = ARRHYTHMIA MANAGEMENT; RN TO ASSESS AND TEACH, MEDICAL AND HEALTH SERVICES MANAGER/ORTHOPEDICALLY IMPAIRED TEACHER TO OBSERVE AND TEACH WARNING SIGNS AND SYMPTOMS TO AVOID HOSPITALIZATION.] Future Scheduled Test SKIN INTEG RITY RN TO ASSESS AND TEACH, MEDICAL AND HEALTH SERVICES MANAGER/ORTHOPEDICALLY IMPAIRED TEACHER TO OBSERVE AND TEACH INTEGUMENTARY STATUS TO IDENTIFY CHANGES AND INTERVENE TO MINIMIZE COMPLICATIONS. PROVIDE SKILLED TEACHING OF GENERAL WOUND AND SKIN CARE AND PREVENTION RELATED TO POTENTIAL FOR ALTERED SKIN INTEGRITY [code = SKIN INTEGRITY RN TO ASSESS AND TEACH, MEDICAL AND HEALTH SERVICES MANAGER/ORTHOPEDICALLY IMPAIRED TEACHER TO OBSERVE AND TEACH INTEGUMENTARY STATUS TO IDENTIFY CHANGES AND INTERVENE TO MINIMIZE COMPLICATIONS. PROVIDE SKILLED TEACHING OF GENERAL WOUND AND SKIN CARE AND PREVENTION RELATED TO POTENTIAL FOR ALTERED SKIN INTEGRITY ] Future Scheduled Test PAIN MANAG EMENT; RN TO ASSESS AND TEACH, ORTHOPEDICALLY IMPAIRED TEACHER/MEDICAL AND HEALTH SERVICES MANAGER TO OBSERVE AND TEACH AND PROVIDE EDUCATION ON PAIN MANAGEMENT TECHNIQUES. [code = PAIN MANAGEMENT; RN TO ASSESS AND TEACH, ORTHOPEDICALLY IMPAIRED TEACHER/MEDICAL AND HEALTH SERVICES MANAGER TO OBSERVE AND TEACH AND PROVIDE EDUCATION ON PAIN MANAGEMENT TECHNIQUES.] Future Scheduled Test FALL REDUC TION MANAGEMENT; RN TO ASSESS AND OBSERVE, MEDICAL AND HEALTH SERVICES MANAGER/ORTHOPEDICALLY IMPAIRED TEACHER TO OBSERVE FALL RISK FACTORS AND EDUCATE PATIENT/CAREGIVER ON STRATEGIES TO MINIMIZE THE RISK OF FALLING. [code = FALL REDUCTION MANAGEMENT; RN TO ASSESS AND OBSERVE, MEDICAL AND HEALTH SERVICES MANAGER/ORTHOPEDICALLY IMPAIRED TEACHER TO OBSERVE FALL RISK FACTORS AND EDUCATE PATIENT/CAREGIVER ON STRATEGIES TO MINIMIZE THE RISK OF FALLING.] Future Scheduled Test RESPIRATOR Y SYSTEM MANAGEMENT; RN TO ASSESS AND TEACH, MEDICAL AND HEALTH SERVICES MANAGER/ORTHOPEDICALLY IMPAIRED TEACHER TO OBSERVE AND TEACH RELATED TO ALTERED RESPIRATORY STATUS TO MINIMIZE COMPLICATIONS AND REDUCE HOSPITALIZATION. [code = RESPIRATORY SYSTEM MANAGEMENT; RN TO ASSESS AND TEACH, MEDICAL AND HEALTH SERVICES MANAGER/ORTHOPEDICALLY IMPAIRED TEACHER TO OBSERVE AND TEACH RELATED TO ALTERED [...] End Date/Time Encounter Type Admission Type Attending [facility] Care Department Encounter ID Discharge Date Discharge Status Discharge Condition Discharge Reason Percent Goals Met 2024-03-22 00:00:00 2024-07-19 00:00:00 Outpatient JOSE MARIARTIFIC DAGOBERTO NEIL [facility] [id number]
--- OUTSIDE RECORDS SUMMARY | 2024-06-12 13:28 | XMS_ITS | Encounter Summary ---
Author Organization [employer] Address [address] [facility] 7t [place] [address] Care Team Providers Care [employer] Executive Director Name Role Phone Sesar Pereyra MD Primary Care Provider +1- [phone] Encounter Details Date Type Department Care Team (Late st Contact Info) Description 05/30/2024 Telephone [facility] MEDICINE [address] [place] [address] Sesar Pereyra MD [address] [place] [address] Social History Tobacco Use Types Packs/Day Years [...] [facility]ED[facility] [address] [place] [address] Sesar Pereyra MD [address] [place] [address] documented as of this encounter Visit Diagnoses Not on filedocumented in this encounter Additional Health Concerns Assessment Noted Time PHQ-9 Depression Total Score: 16 024 10:59 AM EDT documented as of this encounter Care Teams [employer] Executive Director Relationship Specialty Start Date End Date Sesar Pereyra MD [address] [place] [address] PCP - General Internal Medicine [facility] documented as of this encounter
--- OUTSIDE RECORDS SUMMARY | 2024-06-12 13:28 | XMS_ITS | Encounter Summary ---
Author Organization [employer] Address [address] [facility] 7t [place] [address] Care Team Providers Care Template Storage Clerk Name Role Phone Sesar Pereyra MD Primary Care Provider +1- [phone] Reason for Visit * Reason Onset Date Comments Med Refill 04/11/2024 Encounter Details Date Type Department Care Team (Late st Contact Info) Description 04/11/2024 Refill [facility] MEDICINE [address] [place] [address] Natasha Jiang MD [address] [place] [address] Closed nondisplaced fracture of acromial end of [...] Upcoming Encounters Date Type Department Care Team ([facility] st Contact Info) Description 06/13/2024 1:00 PM EST Office Visit [facility] MED & PEDS [address] [place] [address] Sesar Pereyra MD [address] [place] [address] documented as of this encounter Visit Diagnoses Diagnosis Closed nondisplaced fracture of acromial end of right clavicle, initial encounter documented in this encounter Additional Health Concerns Assessment Noted Time PHQ-9 Depression Total Score: 16 024 10:59 AM EDT documented as of this encounter Care Teams Template Storage Clerk Relationship Specialty Start Date End Date Sesar Pereyra MD [address] [place] [address] PCP - General Internal Medicine [facility] documented as of this encounter
--- OUTSIDE RECORDS SUMMARY | 2024-06-12 13:28 | XMS_ITS | Encounter Summary ---
Author Organization [employer] Address [address] [facility] 7t [place] [address] Care Team Providers Care Forging Roll Operator Name Role Phone Sesar Pereyra MD Primary Care Provider +1- [phone] Reason for Visit * Reason Comments Med Refill Encounter Details Date Type Department Care Team ([facility] Contact Info) Description 10/19/2022 Refill [facility] MED & PEDS [address] [place] [address] Sesar Pereyra MD [address] [place] [address] Social History Tobacco Use Types Packs/Day Years [...] Office Visit [facility] MED & PEDS [address] [place] [address] Sesar Pereyra MD [address] [place] [address] documented as of this encounter Visit Diagnoses Not on filedocumented in this encounter Care Teams Forging Roll Operator Relationship Specialty Start Date End Date Sesar Pereyra MD [address] [place] [address] PCP - General Internal Medicine 03/01/21 [facility] 03/22/24 documented as of this encounter
--- OUTSIDE RECORDS SUMMARY | 2024-06-12 13:28 | XMS_ITS | Encounter Summary ---
Author Organization [employer] Address [address] [facility] 7t [place] [address] Care Team Providers Care Internal Recruiter Name Role Phone Sesar Pereyra MD Primary Care Provider +1- [phone] Reason for Visit * Reason Onset Date Comments Med Refill 05/27/2024 Encounter Details Date Type Department Care Team ([facility] st Contact Info) Description 05/27/2024 Refill [facility] MED & PEDS [address] [place] [address] Sesar Pereyra MD [address] [place] [address] Social History Tobacco Use Types Packs/Day Years [...] 7.5 MG tablet To be sent to: [facility] - [place], [place] - [address] [place] [address] STEET documented in this encounter Plan of Treatment Upcoming Encounters Date Type Department Care Team (Late st Contact Info) Description 06/13/2024 1:00 PM EST Office Visit [facility] MED & PEDS [address] [place] [address] Sesar Pereyra MD [address] [place] [address] documented as of this encounter Visit Diagnoses Not on filedocumented in this encounter Additional Health Concerns Assessment Noted Time PHQ-9 Depression Total Score: 16 024 10:59 AM EDT documented as of this encounter Care Teams Internal Recruiter Relationship Specialty Start Date End Date Sesar Pereyra MD [address] [place] [address] PCP - General Internal Medicine 03/01/21 [facility] 03/22/24 documented as of this encounter
--- OUTSIDE RECORDS SUMMARY | 2024-06-12 13:28 | XMS_ITS | Encounter Summary ---
Author Organization [employer] Address [address] [facility] 7t [place] [address] Care Team Providers Care Analytics Developer Name Role Phone Sesar Pereyra MD Primary Care Provider +1- [phone] Reason for Visit * Reason Onset Date Comments fyi 05/28/2024 Encounter Details Date Type Department Care Team ([facility] st Contact Info) Description 05/28/2024 Telephone [facility] MEDICINE [address] [place] [address] Sesar Pereyra MD [address] [place] [address] fyi Social History Tobacco Use Types Packs/Day [...] - 05/28/2024 9:37 AM EST Tc from [facility] with [employer] [facility] Care informing pt verbalized to her that he been taking THD Gummies 2x a day morning and afternoon. Gummies are 10mg per gummy as he's aware of what he's taking. documented in this encounter Plan of Treatment Upcoming Encounters Date Type Department Care Team (Late st Contact Info) Description 06/13/2024 1:00 PM EST Office Visit [facility] MED & PEDS [address] [place] [address] Sesar Pereyra MD [address] [place] [address] documented as of this encounter Visit Diagnoses Not on filedocumented in this encounter Additional Health Concerns Assessment Noted Time PHQ-9 Depression Total Score: 16 024 10:59 AM EDT documented as of this encounter Care Teams Analytics Developer Relationship Specialty Start Date End Date Sesar Pereyra MD [address] [place] [address] PCP - General Internal Medicine 03/01/21 [facility] 03/22/24 documented as of this encounter
--- OUTSIDE RECORDS SUMMARY | 2024-06-12 13:28 | XMS_ITS | Encounter Summary ---
Author Organization [employer] Address [address] [facility] [place] [address] Care Team Providers Care Director Of Athletics Name Role Phone Sesar Pereyra MD Primary Care Provider +1- [phone] Encounter Details Date Type Department Care Team ([facility] Contact Info) Description 10/13/2022 Orders Only [facility] PEDS [address] [place] [address] Sesar Pereyra MD [address] [place] [address] Social History Tobacco Use Types Packs/Day Years [...] [facility] [address] [place], [place] [phone] Sesar Pereyra MD [address] [place] [address] documented as of this encounter Visit Diagnoses Not on filedocumented in this encounter Care Teams Director Of Athletics Relationship Specialty Start Date End Date Sesar Pereyra MD [address] [place] [address] PCP - General Internal Medicine 03/01/21 [facility] 03/22/24 documented as of this encounter
--- OUTSIDE RECORDS SUMMARY | 2024-06-12 13:28 | XMS_ITS | Encounter Summary ---
Author Organization [employer] Address [address] [facility] 7t [place] [address] Care Team Providers Care Clinical Operations Leader Name Role Phone Sesar Pereyra MD Primary Care Provider +1- [phone] Reason for Visit * Reason Onset Date Comments FYI 10/07/2022 Encounter Details Date Type Department Care Team ([facility] st Contact Info) Description 10/07/2022 Telephone [facility] MEDICINE [address] [place] [address] Sesar Pereyra MD [address] [place] [address] FYI Social History Tobacco Use Types Packs/Day [...] any questions or concerns please contact at [phone] documented in this encounter Plan of Treatment Upcoming Encounters Date Type Department Care Team ([facility] st Contact Info) Description 06/13/2024 1:00 PM EST Office Visit [facility] MED [facility] PEDS [address] [place] [address] Sesar Pereyra MD [address] [place], [place] [phone] documented as of this encounter Visit Diagnoses Not on filedocumented in this encounter Care Teams Clinical Operations Leader Relationship Specialty Start Date End Date Sesar Pereyra MD [address] [place] [address] PCP - General Internal Medicine 03/01/21 [facility] 03/22/24 documented as of this encounter
--- OUTSIDE RECORDS SUMMARY | 2024-06-12 13:28 | XMS_ITS | Encounter Summary ---
Author Organization [employer] Address [address] [facility] 7t [place] [address] Care Team Providers Care Tyre Fitter Name Role Phone Sesar Pereyra MD Primary Care Provider +1- [phone] Reason for Visit * Reason Onset Date Comments Med Refill 04/26/2024 Encounter Details Date Type Department Care Team ([facility] st Contact Info) Description 04/26/2024 Telephone [facility] MEDICINE [address] [place] [address] Sesar Pereyra MD [address] [place] [address] Med Refill Social History Tobacco Use Types [...] 7.5 MG tablet To be sent to: [facility] - [place], [place] [facility] [address] [address] [address] documented in this encounter Plan of Treatment Upcoming Encounters Date Type Department Care Team (Late st Contact Info) Description 06/13/2024 1:00 PM EST Office Visit [facility] MED & PEDS [address] [place] [address] Sesar Pereyra MD [address] [place] [address] documented as of this encounter Visit Diagnoses Not on filedocumented in this encounter Additional Health Concerns Assessment Noted Time PHQ-9 Depression Total Score: 16 024 10:59 AM EDT documented as of this encounter Care Teams Tyre Fitter Relationship Specialty Start Date End Date Sesar Pereyra MD [address] [place] [address] PCP - General Internal Medicine 03/01/21 [facility] 03/22/24 documented as of this encounter
--- OUTSIDE RECORDS SUMMARY | 2024-06-12 13:28 | XMS_ITS | Encounter Summary ---
Author Organization [employer] Address [address] [facility] 7t [place] [address] Care Team Providers Care Chief Architect Name Role Phone Sesar Pereyra MD Primary Care Provider +1- [phone] Encounter Details Date Type Department Care Team ([facility] st Contact Info) Description 04/29/2024 Orders Only [facility] CHC MED & PEDS [address] [place], [place] [address] Sesar Pereyra MD [address] [place] [address] Closed nondisplaced fracture of acromial end of [...] [facility] MED & PEDS [address] [place] [address] Sesar Pereyra MD [address] [place] [address] documented as of this encounter Visit Diagnoses Diagnosis Closed nondisplaced fracture of acromial end of right clavicle, initial encounter documented in this encounter Additional Health Concerns Assessment Noted Time PHQ-9 Depression Total Score: 16 024 10:59 AM EDT documented as of this encounter Care Teams Chief Architect Relationship Specialty Start Date End Date Sesar Pereyra MD [address] [place] [address] PCP - General Internal Medicine [facility] documented as of this encounter
--- OUTSIDE RECORDS SUMMARY | 2024-06-12 13:28 | XMS_ITS | Encounter Summary ---
Author Organization [employer] Address [address] [facility] 7[address] [place] [address] Care Team Providers Care Process Checker Name Role Phone Sesar Pereyra MD Primary Care Provider [phone]- [phone] Encounter Details Date Type Department Care Team ([facility] st Contact Info) Description 04/01/2024 Orders Only [facility] MED & PEDS [address] [place], [place] [id number] Sesar Pereyra MD [address] [place] [address] Essential hypertension (Primary Dx) Social History Tobacco [...] Upcoming Encounters Date Type Department Care Team ([facility] st Contact Info) Description 06/13/2024 1:00 PM EST Office Visit [facility] MED & PEDS [address] [place] [address] Sesar Pereyra MD [address] [place] [address] documented as of this encounter Visit Diagnoses Diagnosis Essential hypertension- Primary Unspecified essential hypertension documented in this encounter Additional Health Concerns Assessment Noted Time PHQ-9 Depression Total Score: 16 024 10:59 AM EDT documented as of this encounter Care Teams Process Checker Relationship Specialty Start Date End Date Sesar Pereyra MD [address] [place] [address] PCP - General Internal Medicine 03/01/21 [facility] 03/22/24 documented as of this encounter
--- OUTSIDE RECORDS SUMMARY | 2024-06-12 13:29 | XMS_ITS | Encounter Summary ---
Author Organization [employer] Address [address] [facility] 7t [place] [address] Care Team Providers Care Contracts Specialist Name Role Phone Sesar Pereyra MD Primary Care Provider [phone]- [phone] Reason for Visit * Reason Onset Date Comments Nurse Triage 11/20/2023 Encounter Details Date Type Department Care Team ([facility] st Contact Info) Description 11/20/2023 Telephone [facility] MEDICINE [address] [place] [address] Sesar Pereyra MD [address] [place] [address] Nurse Triage Social History Tobacco Use Types [...] for pt to call back. Checked both [place] and [facility] records and no reports of recent [...] caller accepted this outcome Please contact at [phone] documented in this encounter Plan of Treatment Upcoming Encounters Date Type Department Care Team (Late st Contact Info) Description 06/13/2024 1:00 PM EST Office Visit [facility] MED & PEDS [address] [place] [address] Sesar Pereyra MD [address] [place] [address] documented as of this encounter Visit Diagnoses Not on filedocumented in this encounter Additional Health Concerns Assessment Noted Time PHQ-9 Depression Total Score: 16 024 10:59 AM EDT documented as of this encounter Care Teams Contracts Specialist Relationship Specialty Start Date End Date Sesar Pereyra MD [address] [place] [address] PCP - General Internal Medicine 03/01/21 [facility] 03/22/24 documented as of this encounter
--- OUTSIDE RECORDS SUMMARY | 2024-06-12 13:29 | XMS_ITS | Encounter Summary ---
Author Organization [employer] Address [address] [facility] 7t [place] [address] Care Team Providers Care Credit Risk Review Officer Name Role Phone Sesar Pereyra MD Primary Care Provider [phone]- [phone] Reason for Visit * Reason Onset Date Comments Medication Question 05/23/2024 Encounter Details Date Type Department Care Team ([facility] st Contact Info) Description 05/23/2024 Telephone [facility] MEDICINE [address] [place] [address] Sesar Pereyra MD [address] [place] [address] Medication Question Social History Tobacco Use Types [...] any questions you can contact L&C at [phone]. documented in this encounter Plan of Treatment Upcoming Encounters Date Type Department Care Team ([facility] st Contact Info) Description 06/13/2024 1:00 PM EST Office Visit [facility] MED & PEDS [address] [place] [address] Sesar Pereyra MD [address] [place] [address] documented as of this encounter Visit Diagnoses Diagnosis Primary hypertension Unspecified essential hypertension Hypercholesterolemia Pure hypercholesterolemia documented in this encounter Additional Health Concerns Assessment Noted Time PHQ-9 Depression Total Score: 16 024 10:59 AM EDT documented as of this encounter Care Teams Credit Risk Review Officer Relationship Specialty Start Date End Date Sesar Pereyra MD [address] [place] [address] PCP - General Internal Medicine 03/01/21 [facility] 03/22/24 documented as of this encounter
--- OUTSIDE RECORDS SUMMARY | 2024-06-12 13:29 | XMS_ITS | Encounter Summary ---
Author Organization [employer] Address [address] [facility] 7t [place] [address] Care Team Providers Care Registration Rep Name Role Phone Sesar Pereyra MD Primary Care Provider [phone]- [phone] Reason for Visit * Reason Onset Date Comments Referral 01/02/2024 Encounter Details Date Type Department Care Team ([facility] st Contact Info) Description 01/02/2024 Telephone [facility] MEDICINE [address] [place] [address] Sesar Pereyra MD [address] [place] [address] Referral Social History Tobacco Use Types Packs/Day [...] - 01/02/2024 10:48 AM EDT Tc from [place] the patients [facility] requesting a referral for a gerontologist and would like to be sent to at [facility] [place] [facility] [place] documented in this encounter Plan of Treatment Upcoming Encounters Date Type Department Care Team (Late st Contact Info) Description 06/13/2024 1:00 PM EST Office Visit [facility] MED & PEDS [address] [place] [address] Sesar Pereyra MD [address] [place] [address] documented as of this encounter Visit Diagnoses Not on filedocumented in this encounter Additional Health Concerns Assessment Noted Time PHQ-9 Depression Total Score: 16 024 10:59 AM EDT documented as of this encounter Care Teams Registration Rep Relationship Specialty Start Date End Date Sesar Pereyra MD [address] [place] [address] PCP - General Internal Medicine 03/01/21 [facility] 03/22/24 documented as of this encounter
--- OUTSIDE RECORDS SUMMARY | 2024-06-12 13:29 | XMS_ITS | Clinical Summary ---
Author Organization [facility] Address [address] [place] [address] Care Team Providers Care Applications Scientist Name Role Phone Nuha Galvin PA-C Primary Care Provider [phone] Source Comments PLEASE NOTE, if this patient [...] Date Sleep disorder 02/02/2015 Overview (02/02/2015): Saw [facility] sleep on 01/15/2015: Dr. Johnson [...] once a year. In remission Seen at [facility] urology Depression with anxiety 04/01/2014 Overview (04/01/2014): Dr. Pradhan at [facility]. Is going to establish care at a new facility. PVD (peripheral vascular dis ease) with claudication ([facility]) 04/01/2014 Overview (07/04/2014): Fem-Fem done by Dr. Hensley in 2006. Sees this doctor once a year at [facility]. Follows up with this facility every 6 months. 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 4.[address] Herbert [...] SAF[employer]Y NET MEDICARE - [place] Care Teams Applications Scientist Relationship Specialty Start Date End Date Nuha Galvin PA-C [address] [place] [address] PCP - General 03/21/18
--- OUTSIDE RECORDS SUMMARY | 2024-06-12 13:29 | XMS_ITS | Encounter Summary ---
Author Organization [employer] Address [address] [facility] 7t [place] [address] Care Team Providers Care Mud Analysis Supervisor Name Role Phone Sesar Pereyra MD Primary Care Provider [phone]- [phone] Reason for Visit * Reason Onset Date Comments Results 06/06/2023 Encounter Details Date Type Department Care Team ([facility] st Contact Info) Description 06/06/2023 Telephone [facility] MEDICINE [address] [place] [address] Sesar Pereyra MD [address] [place] [address] Results Social History Tobacco Use Types Packs/Day [...] Date when done: 06/01/23-06/02/23 pt unsure Facility: [facility] documented in this encounter Plan of Treatment Upcoming Encounters Date Type Department Care Team (Late st Contact Info) Description 06/13/2024 1:00 PM EST Office Visit [facility] MED & PEDS [address] [place] [address] Sesar Pereyra MD [address] [place] [address] documented as of this encounter Visit Diagnoses Not on filedocumented in this encounter Care Teams Mud Analysis Supervisor Relationship Specialty Start Date End Date Sesar Pereyra MD [address] [place] [address] PCP - General Internal Medicine 03/01/21 [facility] 03/22/24 documented as of this encounter
--- OUTSIDE RECORDS SUMMARY | 2024-06-12 13:29 | XMS_ITS | Encounter Summary ---
Author Organization [employer] Address [address] [facility] 7t [place] [address] Care Team Providers Care Brine Well Operator Name Role Phone Sesar Pereyra MD Primary Care Provider [phone]- [phone] Encounter Details Date Type Department Care Team ([facility] st Contact Info) Description 11/01/2023 Orders Only [facility] CHC MED & PEDS [address] [place], [place] [phone] Sesar Pereyra MD [address] [place] [address] Social History Tobacco Use Types Packs/Day Years [...] [facility] [address] [place] [address] Sesar Pereyra MD [address] [place] [address] documented as of this encounter Visit Diagnoses Not on filedocumented in this encounter Additional Health Concerns Assessment Noted Time PHQ-9 Depression Total Score: 16 024 10:59 AM EDT documented as of this encounter Care Teams Brine Well Operator Relationship Specialty Start Date End Date Sesar Pereyra MD [address] [place] [address] PCP - General Internal Medicine [facility] documented as of this encounter
--- OUTSIDE RECORDS SUMMARY | 2024-06-12 13:29 | XMS_ITS | Clinical Summary ---
Author Organization [employer] Address [address] [facility] 7t [place] [address] Care Team Providers Care Bolt Cutter Name Role Phone Sesar Pereyra MD Primary [...] considered Sleep disorder 02/02/2015 Overview (01/22/2024): Saw [facility] sleep on 01/15/2015: Dr. Johnson Likely DILLAN sleep study ordered. Given that he has RLS, He may have periodic limb movement disorder which can be checked for in the study. Check ferritin. Will await sleep study. Depression with anxiety 04/01/2014 Overview (06/16/2022): Dr. Pradhan at [facility]. Is going to establish care at [...] Sees this doctor once a year at [facility]. Follows up with this facility every 6 months. Pure hypercholesterolemia 07/24/2009 Thoracic aortic aneurysm (TAA) 03/11/2009 Overview (01/22/2024): IMO update Seen by [facility]. 4.[address] Herbert [...] for a time Sony done [address] 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 07/14/2005 Overview (01/22/2024): Stent on right and fem- fem bypass on left IMO update Depressive disorder 07/14/2005 Alcohol abuse, in remission 06/19/2005 Encounters Date Type Department Care Team Description 05/30/2024 Telephone [facility] [address] [place] [phone] Sesar Pereyra MD Lab Orders; Referral 05/30/2024 Telephone [facility] [address] [place] [phone] Sesar Pereyra MD 05/28/[address] [address] Sesar Pereyra MD fyi 05/27/2024 Refill [facility] [address] [facility] [place] [address] Sesar Pereyra MD 05/23/2024 Telephone [facility] [address] [place] [address] Sesar Pereyra MD Medication Question 05/15/2024 Telephone [facility] [address] [facility] [place] [address] Sesar Pereyra MD 05/09/2024 Telephone [facility] [address] [facility] [place] [address] Verona Thompson RN 05/07/2024 9:15 AM EST Office Visit [facility] [address] [place] [address] Natasha Jiang MD Kidney stone (Primary Dx) 05/07/2024 Telephone [facility] [address] [place] [address] Natasha Jiang MD Medication Question 05/07/2024 Orders Only [facility] [address] [place] [address] Natasha Jiang MD 05/07/2024 Travel 05/06/2024 Telephone [facility] [address] [place] [address] Sesar Pereyra MD Nurse Triage 04/30/2024 Refill [facility] [address] [place] [address] Sesar Pereyra MD Longstanding persistent atrial fibrillation (CMS/HCC); PVD (peripheral vascular disease) (CMS/HCC) 04/29/2024 Orders Only [facility] [address] [place] [address] Sesar Pereyra MD Closed nondisplaced fracture of acromial end of right clavicle, initial encounter 04/29/2024 Telephone [facility] [address] [place] [address] Sesar Pereyra MD Nurse Triage 04/28/2024 Refill [facility] [address] [place] [address] Sesar Pereyra MD 04/26/2024 Refill [facility] [address] [place] [address] Sesar Pereyra MD Closed nondisplaced fracture of acromial end of right clavicle, initial encounter 04/26/2024 Telephone [facility] [address] [place] [address] Sesar Pereyra MD Med Refill 04/18/2024 Refill [facility] [address] [place] [address] Loyda Jacobson, CLAUDIA Essential hypertension; Closed nondisplaced fracture of acromial end of right clavicle, initial encounter 04/18/2024 Telephone [facility] [address] [place] [address] Sesar Pereyra MD Med Refill 04/11/2024 Refill [facility] [address] [place] [address] Sesar Pereyra MD 04/11/2024 Refill [facility] [address] [place] [address] Natasha Jiang MD Closed nondisplaced fracture of acromial end of right clavicle, initial encounter 04/11/2024 Travel 04/10/[address] [address] Sesar Pereyra MD Closed nondisplaced fracture of acromial end of right clavicle, initial encounter 04/10/[address] [address] Sesar Pereyra MD Med Refill 04/03/2024 3:00 PM EST Office Visit [facility] [address] [place] [address] Lauren Vogel MD Cellulitis of left lower extremity (Primary Dx) 04/03/[address] [address] Sesar Pereyra MD Nurse Triage 04/02/[address] [address] Sesar Pereyra MD callback number; Medication Question 04/02/[address] [address] Sesar Pereyra MD Closed nondisplaced fracture of acromial end of right clavicle, initial encounter 04/02/[address] [address] Sesar Pereyra MD Med Refill 04/02/2024 Orders Only [facility] [address] [place] [address] ProviderJazmyn MD 04/01/2024 Orders Only [facility] [address] [place] [address] Sesar Pereyra MD Essential hypertension (Primary Dx) 03/27/2024 9:15 AM EST Office Visit [facility] [address] [place] [address] Sesar Pereyra MD Acute kidney injury (CMS/HCC) (Primary Dx); Closed nondisplaced fracture of acromial end of right clavicle, initial encounter; Longstanding persistent atrial fibrillation (CMS/HCC); Dizziness; Bradycardia 03/27/2024 Telephone [facility] [address] [place] [address] Analilia Mart, CLAUDIA Plan of care 03/27/2024 Travel 03/25/2024 Telephone [facility] [address] [place] [address] Sesar Pereyra MD Chart Prep 03/22/2024 Telephone [facility] [address] [place] [address] Sesar Pereyra MD Nurse Triage 03/15/2024 Telephone [facility] [address] [place] [address] Sesar Pereyra MD ER Follow-up 03/15/2024 Travel 03/14/2024 Orders Only GENERIC EXTERNAL DATA DEPARTMENT Provider, Generic External Data 03/13/2024 9:00 AM EST Office Visit [facility] [address] [place] [address] Sesar Pereyra MD Essential hypertension (Primary Dx); Longstanding persistent atrial fibrillation (CMS/HCC) 03/13/2024 Travel 03/12/2024 Orders Only GENERIC EXTERNAL DATA DEPARTMENT Provider, Generic External Data 03/12/2024 Telephone [facility] [address] [place] [address] Sesar Pereyra MD Chart Prep from Last [...] Description 06/13/2024 1:00 PM EST Office Visit [facility] [address] [place] [address] Sesar Pereyra MD [address] [place] [address] Health Maintenance Due Date Last Done Comments [...] EST Narrative 05/07/2024 10:48 AM EST ? [facility] ?[address] ?[place] [address] ?XRay Report ? Signed ? Patient: Tho,Alex ?MR#: [id number] ?? [id number] ? : 1945 ?Acct:[id number] ? Age/Sex: 79 / M ?ADM Date: 05/07/ ? Loc: HO.XRAY ? Attending Dr: Natasha Jiang MD ? Ordering Physician: Natasha Jiang MD ?? Date of Service: 05/07/24 ?? Procedure(s): XR KUB ?? Accession Number(s): [id number] ? cc: Seasr Pereyra MD; Natasha Jiang MD ? EXAMINATION: [...] DD/ 1021 ? TD/TT: 05/07/24 1040 ? Hydraulic Rock Drill Operator: ? Procedure Note Hernandez, Image - 05/07/[address] [address] XRay Report Signed Patient: Ronald Nettles#: [id number] : 1945cct:[id number] Age/Sex: 79 / MADM Date: 05/07/24 Loc: BEBETO Attending Dr: Natasha Jiang MD Ordering Physician: Natasha Jiang MD Date of Service: 05/07/24 Procedure(s): XR KUB Accession Number(s): [id number] cc: Sesar Pereyra MD; Natasha Jiang MD [...] 05/07/24 1045 DD/ 1021 TD/TT: 05/07/24 1040 Hydraulic Rock Drill Operator: Natasha Jiang MD IMG XR PROCEDURES Edited [...] EST Heart rate 48 bpm. ??Sinus rhythm. ??[place]aggett: 0 degrees. ??No sign of left atrial enlargement or right atrial enlargement. ??No sign of hypertrophy. ?? T wave inversion in aVL and aVF Sesar Pereyra MD ECG ORDERABLES Final Resul t * (ABNORMAL) Basic Metabolic Panel (03/27/2024 11:00 AM EST) Sodium 141 135 - 145 mmol/L [facility] Potassium 4.8 3.3 - 5.1 mmol/L [facility] Comment:Slight Hemolysis.Int erpret result with caution. Chloride 109(H) 96 - 108 mmol/L [facility] Carbon Dioxide 21(L) 22 - 29 mmol/L [facility] Anion Gap 16 12 - 20 [facility] Urea Nitrogen (BUN) 21(H) 9 - 16 mg/dL [facility] Creatinine, Serum 1.25 0.5 - 1.4 mg/dL [facility] Estimated Glomerular Filt Rate 56 [facility] Comment:Chronic Kidney Disea se: Estimated GFR < 60 mL/min/1.01u8Mhaswt Kidney Disease: Estimated GFR < 15 mL/min/1.73m2 Glucose 83 60 - 115 mg/dL [facility] Calcium 9.4 8.4 - 10.2 mg/dL [facility] Blood Venous blood specimen / Unknown 03/27/2024 11:00 AM EST 03/27/2024 2:18 PM EST us Sesar Pereyra MD LAB BLOOD ORDERABLES Final Result [facility] [address] [place] [phone] * (ABNORMAL) Comprehensive Metabolic Panel (03/14/2024 8:33 AM EST) Sodium 143 135 - 145 mmol/L [facility] Potassium 4.2 3.3 - 5.1 mmol/L [facility] Chloride 108 96 - 108 mmol/L [facility] Carbon Dioxide 27 22 - 29 mmol/L [facility] Anion Gap 12 12 - 20 [facility] Urea Nitrogen (BUN) 16 9 - 16 mg/dL [facility] Creatinine, Serum 1.53(H) 0.5 - 1.4 mg/dL [facility] Creatinine Clr Calc Pharmacy 52.0 [facility] Comment:eGFR (calculated fro m the MDRD study equation) and eCrCl(calculated from the Cockcroft-Gault equation) are based ondifferent parameters and may not yield comparable results.If eCrCl result is absurd, please check patient'sheight/weight. Estimated Glomerular Filt Rate 44 [facility] Comment:Chronic Kidney Disea se: Estimated GFR < 60 mL/min/1.19p9Zgomse Kidney Disease: Estimated GFR < 15 mL/min/1.73m2 Glucose 92 60 - 115 mg/dL [facility] Calcium 9.1 8.4 - 10.2 mg/dL [facility] Bilirubin, Total 0.5 0.0 - 1.0 mg/dL [facility] Aspartate Amino Transferase 23 5 - 37 U/L [facility] Alanine Aminotransferase 19 0 - 40 U/L [facility] Total Protein 6.5 6.5 - 8.0 g/dL [facility] Albumin Level 3.8 3.5 - 5.0 g/dL [facility] Alkaline Phosphatase 102 39 - 117 U/L [facility] 03/14/2024 8:33 AM EST 03/14/2024 8:39 AM EST us Generic External Data Provider LAB BLOOD ORDERAB LES Final Result Performing Organization Address City/State/[facility] Co de Phone Number [facility] [address] [place] [address] [phone] * XR Chest 1 View (03/12/2024 9:51 PM EST) Anatomical Region Laterality Modality Chest Radiographic Homa ging 03/12/2024 9:51 PM EST Narrative 03/12/2024 11:02 PM EST ? [facility] ?[address] ?[place] [address] ?XRay Report ? Signed ? Patient: Tho,Alex ?MR#: [id number] ?? [id number] ? : 1945 ?Acct:[id number] ? Age/Sex: 79 / M ?ADM Date: 11/12/24 ? Loc: HO.ED ? Attending Dr: ? Ordering Physician: Vincent Short MD ?? Date of Service: 03/12/24 ?? Procedure(s): XR chest 1V ?? Accession Number(s): [id number] ? cc: Sesar Pereyra MD; Vincent Short [...] ? DD/ 2151 ? TD/TT: 03/12/247 ? Hydraulic Rock Drill Operator: BA ? Procedure Note Donottaylorinterpreter, Image - 03/12/2024 [place] [address] XRay Report Signed Patient: Ronald Nettles#: [id number] : 1945cct:[id number] Age/Sex: 79 / MADM Date: 03/12/24 Loc: HO.ED Attending Dr: Ordering Physician: Vincent Short MD Date of Service: 03/12/24 Procedure(s): XR chest 1V Accession Number(s): [id number] cc: Sesar Pereyra MD; Vincent Short MD [...] in OV> 03/12/242258 DD/ 50 TD/TT: 03/12/242216 Hydraulic Rock Drill Operator: SHANNAN [facility] External Provider IMG XR PROCEDURES Edited Result - Final * (ABNORMAL) Urinalysis, Complete, with Reflex to Culture (03/12/2024 9:50 PM EST) Color Urine Yellow [facility] Appearance Urine Clear [facility] PH 6.5 5.0 - 9.0 [facility] Glucose Urine UA Negative Negative mg/dL [facility] Urine Blood Negative Negative [facility] Specific [place] - Urine <=1.005 1.005 - 1.025 [facility] Urine Protein 100 (2+)(A) Neg-Trace mg/dL [facility] Urine Ketones Negative Negative mg/dL [facility] Nitrite Urine Negative Negative [facility] Leukocyte Esterase Urine Negative Negative [facility] RBC Urine 0-2 0 - 2 /HPF [facility] Urine WBC 0-5 0 - 5 /HPF [facility] Urine Squamous Epithelial Cell 0-2 0 - 2 /HPF [facility] Urine Bacteria None Seen None Seen [facility] Hyaline Casts, Urine 0-2 0 - 2 /LPF [facility] 03/12/2024 9:50 PM EST 03/12/2024 9:54 PM EST Narrative [facility] - 03/12/2024 10:09 PM EST Urine, Clean Catch Generic External Data Provider LAB URINE ORDERAB LES Final Result [facility] [address] [place] [phone] * Hepatitis C Ab (07/19/2023 11:42 AM EDT) Hepatitis C Antibody Nonreactive Nonreactive [facility] Comment:Antibodies to HCV no t detected; does not exclude early acuteHCV infection. Blood Venous blood specimen / Unknown 07/19/2023 11:42 AM EDT 07/19/2023 2:25 PM EDT us Sesar Pereyra MD LAB BLOOD ORDERABLES Final Result [facility] [address] [place] [phone] * (ABNORMAL) LIPID PANEL, STANDARD (03/05/2021 [...] ?? Ulisses MCDANIEL et al. MANDEEP. 2013;310(19): 8258-5711 ?? (http://education.[employer].8bit/faq/JXU147) Non-HDL Cholesterol 104 <130 mg/dL (calc) [facility] [...] MD LAB BLOOD ORDERABLES Final Result [facility] [address] from Last 3 Months or Most Recently Relevant to Health Maintenance Insurance [employer] MEDICARE REPLACEMENT [facility] FULL Care Teams Bolt Cutter Relationship Specialty Start Date End Date Sesar Pereyra MD [address] [place] [phone] PCP - General Internal Medicine 03/01/21 [facility] 03/22/24
--- OUTSIDE RECORDS SUMMARY | 2024-06-12 13:29 | XMS_ITS | Clinical Summary ---
Author Organization Unknown Care Team Providers Care Electrical Engineering Director Name Role Phone MARCO RAMIREZ, POOJA Unavailable Unavailabl e JIMENEZ PT, COURTNEY Unavailable Unavailable SPAFFORD OT, DAGO Unavailable Unavailable CONDINO FERNY/CALZADA, ANGUS Unavailable Unav ailable FECTEAU BUILDING MAINTENANCE ENGINEER, JANETT Unavailable Unavailable LESLYE RN, DAGOBERTO Unavailable Unavailab abraham [facility] NEONATAL ICU COORDINATOR, ANTONIO Unavailable Unavailable JOSE RAFAEL SKAGGSN, YORDAN Unavailable Unavail able Payers Payer Name Policy Type Policy Number Effective Date Expira tion Date [facility] [id number] Problems Condition Name Condition Details Condition Category [...] 2023-05 00:00: 00 ATHSCL HEART DISEASE OF [place] CORONARY ARTERY W/O ANG PCTRS Active 05-01 [...] HISTORY OF COVID-19 Active 2023-05 00:00: 00 SENIOR CARE (CURRENT) USE OF ANTICOAGULAN TS Active 2023-05 [...] 2023-05 00:00: 00 05-16 23:59 :00 No [id number] PAIN 15 mg EVERY 6 HOURS NEEDED 15 mg EVERY 6 HOURS NEEDED (route: oral) Med Classific ation: Analgesic , Anti-infl ammatory or Antipyret ic clonazepam 0.5 mg tablet 2023-05 00:00: 00 Yes [id number] ANXIETY 0.5 mg 2 TIMES DAILY 0.5 mg 2 TIMES DAILY (route: oral) Med Classific ation: Central Nervous System Agents lisinopril 40 mg tablet 2023-05 00:00: 00 03-21 23:59 :00 No [id number] CAD 40 mg DAILY 40 mg DAILY (route: oral) Med Classific ation: Cardiovas cular Therapy Agents atorvastati n 80 mg tablet 2023-05 00:00: 00 Yes [id number] HYPERTENSIO N 80 mg DAILY 80 mg DAILY (route: oral) Med Classific ation: Cardiovas cular Therapy Agents cilostazol 50 mg tablet 2023-05 00:00: 00 Yes [id number] HYPERTENSIO N 50 mg 2 TIMES DAILY 50 mg 2 TIMES DAILY (route: oral) Med Classific ation: Hematolog ical Agents clopidogrel 75 mg tablet 2023-05 00:00: 00 03-21 23:59 :00 No [id number] CORONARY ARTERY DISEASE 75 mg DAILY 75 mg DAILY (route: oral) Med Classific ation: Hematolog ical Agents Eliquis 5 mg tablet 2023-05 00:00: 00 Yes [id number] ANTI ARRHYTHMIC 5 mg 2 TIMES DAILY 5 mg 2 TIMES DAILY (route: oral) Med Classific ation: Hematolog ical Agents furosemide 40 mg tablet 2023-05 00:00: 00 03-21 23:59 :00 No [id number] BPH 40 mg DAILY 40 mg DAILY (route: oral) Alternate Route: INTRA-MUS CULAR. Med Classific ation: Cardiovas cular Therapy Agents metoprolol tartrate 50 mg tablet 2023-05 00:00: 00 03-22 23:59 :00 No [id number] CAD 50 mg DAILY 50 mg DAILY (route: oral) Med Classific ation: Cardiovas cular Therapy Agents quetiapine 25 mg tablet 2023-05 00:00: 00 Yes [id number] MOOD STABILIZER 25 mg 2 TIMES DAILY 25 mg 2 TIMES DAILY (route: oral) Med Classific ation: Central Nervous System Agents sertraline 50 mg tablet 2023-05 00:00: 00 Yes [id number] MOOD STABILIZER 50 mg DAILY 50 mg DAILY (route: oral) Med Classific ation: Central Nervous System Agents tamsulosin 0.4 mg capsule 2023-05 00:00: 00 Yes [id number] BPH 0.4 mg DAILY 0.4 mg DAILY (route: oral) Med Classific ation: Genitouri nary Therapy docusate sodium 100 mg tablet 2023-05 00:00: 00 Yes [id number] CONSTIPATIO N 100 mg DAILY 100 mg DAILY (route: oral) Med Classific ation: Gastroint estinal Therapy Agents gabapentin 100 mg capsule 2023-05 00:00: 00 Yes [id number] PAIN 1-3 capsule BEDTIME 1-3 capsule BEDTIME (route: oral) Med Classific ation: Central Nervous System Agents metoprolol tartrate 25 mg tablet 2023-05 00:00: 00 03-27 16:09 :43.1 53 No [id number] HYPERTENSIO N 25 mg 2 TIMES DAILY 25 mg 2 TIMES DAILY (route: oral) Med Classific ation: Cardiovas cular Therapy Agents Multaq 400 mg tablet 2023-05 00:00: 00 Yes [id number] ANTIARRHYTH MICHAEL 400 mg 2 TIMES DAILY 400 mg 2 TIMES DAILY (route: oral) Med Classific ation: Cardiovas cular Therapy Agents furosemide 40 mg tablet 2023-05 00:00: 00 Yes [id number] edema 1 tablet DAILY 1 tablet DAILY (route: oral) Med Classific ation: Cardiovas cular Therapy Agents dextroamphe tamine-amph etamine 7.5 mg tablet 2023-05 00:00: 00 Yes [id number] attention 1 tablet DAILY 1 tablet DAILY (route: oral) Med Classific ation: Central Nervous System Agents metoprolol tartrate 25 mg tablet 2023-05 00:00: 00 Yes [id number] heart rate 0.5 tablet 2 TIMES DAILY 0.5 tablet 2 TIMES DAILY (route: oral) Med Classific ation: Cardiovas cular Therapy Agents cephalexin 500 mg capsule 2023-05 00:00: 00 04-10 23:59 :00 No [id number] CELLULITIS LLL 500 mg 4 TIMES DAILY 500 mg 4 TIMES DAILY (route: oral) Med Classific ation: Anti-Infe ctive Agents hydralazine 25 mg tablet 2023-05 00:00: 00 Yes [id number] HTN 25 mg 2 TIMES DAILY 25 [...] CONSULTING PHYSICIANS. RN TO OBSERVE AND ASSESS, MEMBERSHIP ADVISOR/AGRICULTURAL MECHANIC TO OBSERVE FOR RISK FOR FALLS AND INSTRUCT IN FALL PREVENTION, HOME SAFETY, MEDICATION MANAGEMENT, INFECTION PREVENTION, AND NUTRITION MANAGEMENT. RN/MEMBERSHIP ADVISOR/AGRICULTURAL MECHANIC NURSE MAY PERFORM O2 SATURATION LEVEL ON ADMISSION AND PRN FOR RN TO ASSESS/MEMBERSHIP ADVISOR TO OBSERVE PATIENT, WITH NOTIFICATION TO THE PHYSICIAN IF SATURATION IS 90% IN THE ABSENCE OF MORE SPECIFIC PARAMETERS FROM THE PHYSICIAN. AGENCY MAY PERFORM A RESUMPTION OF CARE VISIT FOLLOWING ANY HOSPITAL ADMISSION. RN/MEMBERSHIP ADVISOR/AGRICULTURAL MECHANIC TO MONITOR CO-MORBID CONDITIONS LISTED ON THE PLAN OF CARE AND ANY NEW CONDITIONS THAT PRESENT THEMSELVES DURING THIS EPISODE TO IDENTIFY CHANGES AND INTERVENE TO MINIMIZE COMPLICATIONS. [code = RN TO OBSERVE, ASSESS, EVALUATE, AND DEVELOP AN INDIVIDUALIZED PLAN OF CARE. AGENCY MAY ACCEPT ORDERS FROM CONSULTING PHYSICIANS. RN TO OBSERVE AND ASSESS, MEMBERSHIP ADVISOR/AGRICULTURAL MECHANIC TO OBSERVE FOR RISK FOR FALLS AND INSTRUCT IN FALL PREVENTION, HOME SAFETY, MEDICATION MANAGEMENT, INFECTION PREVENTION, AND NUTRITION MANAGEMENT. RN/MEMBERSHIP ADVISOR/AGRICULTURAL MECHANIC NURSE MAY PERFORM O2 SATURATION LEVEL ON ADMISSION AND PRN FOR RN TO ASSESS/MEMBERSHIP ADVISOR TO OBSERVE PATIENT, WITH NOTIFICATION TO THE PHYSICIAN IF SATURATION IS 90% IN THE ABSENCE OF MORE SPECIFIC PARAMETERS FROM THE PHYSICIAN. AGENCY MAY PERFORM A RESUMPTION OF CARE VISIT FOLLOWING ANY HOSPITAL ADMISSION. RN/MEMBERSHIP ADVISOR/AGRICULTURAL MECHANIC TO MONITOR CO-MORBID CONDITIONS LISTED ON THE PLAN OF CARE AND ANY NEW CONDITIONS THAT PRESENT THEMSELVES DURING THIS EPISODE TO IDENTIFY CHANGES AND INTERVENE TO MINIMIZE COMPLICATIONS.] Future Scheduled Test MEDICATION MANAGEMENT; RN/MEMBERSHIP ADVISOR/AGRICULTURAL MECHANIC TO REVIEW MEDICATIONS FOR INTERACTIONS, EFFECTIVENESS OF DRUG THERAPY, AND SIGNS/SYMPTOMS OF ADVERSE REACTIONS. MAY INSTRUCT AND REINFORCE MEDICATION TEACHING RELATED TO THE USE OF MEDICATIONS, DOSAGE, FREQUENCY, PURPOSE, SIDE EFFECTS, AND TO REPORT COMPLICATIONS. HELP SET UP BUBBLE PACKS [code = MEDICATION MANAGEMENT; RN/MEMBERSHIP ADVISOR/AGRICULTURAL MECHANIC TO REVIEW MEDICATIONS FOR INTERACTIONS, EFFECTIVENESS OF DRUG THERAPY, AND SIGNS/SYMPTOMS OF ADVERSE REACTIONS. MAY INSTRUCT AND REINFORCE MEDICATION TEACHING RELATED TO THE USE OF MEDICATIONS, DOSAGE, FREQUENCY, PURPOSE, SIDE EFFECTS, AND TO REPORT COMPLICATIONS. HELP SET UP BUBBLE PACKS] Future Scheduled Test RISK FOR H OSPITALIZATION; RN TO ASSESS/TEACH, AGRICULTURAL MECHANIC/MEMBERSHIP ADVISOR TO OBSERVE/TEACH PATIENT/CAREGIVER ON RISK FOR HOSPITALIZATION/EMERGENCY ROOM VISITS, TEACH SIGNS AND SYMPTOMS THAT PUT PATIENT AT RISK, WHEN TO NOTIFY NURSE/PHYSICIAN OF COMPLICATIONS/DECLINE, AND WHEN TO CALL 911. [code = RISK FOR HOSPITALIZATION; RN TO ASSESS/TEACH, AGRICULTURAL MECHANIC/MEMBERSHIP ADVISOR TO OBSERVE/TEACH PATIENT/CAREGIVER ON RISK FOR HOSPITALIZATION/EMERGENCY ROOM VISITS, TEACH SIGNS AND SYMPTOMS THAT PUT PATIENT AT RISK, WHEN TO NOTIFY NURSE/PHYSICIAN OF COMPLICATIONS/DECLINE, AND WHEN TO CALL 911.] Future Scheduled Test CARDIOVASC ULAR SYSTEM; RN TO ASSESS/TEACH, MEMBERSHIP ADVISOR/AGRICULTURAL MECHANIC TO OBSERVE/TEACH RELATED TO ALTERED CARDIOVASCULAR STATUS TO MINIMIZE COMPLICATIONS AND REDUCE HOSPITALIZATION. [code = CARDIOVASCULAR SYSTEM; RN TO ASSESS/TEACH, MEMBERSHIP ADVISOR/AGRICULTURAL MECHANIC TO OBSERVE/TEACH RELATED TO ALTERED CARDIOVASCULAR STATUS TO MINIMIZE COMPLICATIONS AND REDUCE HOSPITALIZATION.] Future Scheduled Test HYPERTENSI ON MANAGEMENT; RN TO ASSESS AND TEACH, MEMBERSHIP ADVISOR/AGRICULTURAL MECHANIC TO OBSERVE AND TEACH WARNING SIGNS AND SYMPTOMS TO AVOID HOSPITALIZATION. [code = HYPERTENSION MANAGEMENT; RN TO ASSESS AND TEACH, MEMBERSHIP ADVISOR/AGRICULTURAL MECHANIC TO OBSERVE AND TEACH WARNING SIGNS AND SYMPTOMS TO AVOID HOSPITALIZATION.] Future Scheduled Test ARRHYTHMIA MANAGEMENT; RN TO ASSESS AND TEACH, MEMBERSHIP ADVISOR/AGRICULTURAL MECHANIC TO OBSERVE AND TEACH WARNING SIGNS AND SYMPTOMS TO AVOID HOSPITALIZATION. [code = ARRHYTHMIA MANAGEMENT; RN TO ASSESS AND TEACH, MEMBERSHIP ADVISOR/AGRICULTURAL MECHANIC TO OBSERVE AND TEACH WARNING SIGNS AND SYMPTOMS TO AVOID HOSPITALIZATION.] Future Scheduled Test SKIN INTEG RITY RN TO ASSESS AND TEACH, MEMBERSHIP ADVISOR/AGRICULTURAL MECHANIC TO OBSERVE AND TEACH INTEGUMENTARY STATUS TO IDENTIFY CHANGES AND INTERVENE TO MINIMIZE COMPLICATIONS. PROVIDE SKILLED TEACHING OF GENERAL WOUND AND SKIN CARE AND PREVENTION RELATED TO POTENTIAL FOR ALTERED SKIN INTEGRITY [code = SKIN INTEGRITY RN TO ASSESS AND TEACH, MEMBERSHIP ADVISOR/AGRICULTURAL MECHANIC TO OBSERVE AND TEACH INTEGUMENTARY STATUS TO IDENTIFY CHANGES AND INTERVENE TO MINIMIZE COMPLICATIONS. PROVIDE SKILLED TEACHING OF GENERAL WOUND AND SKIN CARE AND PREVENTION RELATED TO POTENTIAL FOR ALTERED SKIN INTEGRITY ] Future Scheduled Test PAIN MANAG EMENT; RN TO ASSESS AND TEACH, AGRICULTURAL MECHANIC/MEMBERSHIP ADVISOR TO OBSERVE AND TEACH AND PROVIDE EDUCATION ON PAIN MANAGEMENT TECHNIQUES. [code = PAIN MANAGEMENT; RN TO ASSESS AND TEACH, AGRICULTURAL MECHANIC/MEMBERSHIP ADVISOR TO OBSERVE AND TEACH AND PROVIDE EDUCATION ON PAIN MANAGEMENT TECHNIQUES.] Future Scheduled Test FALL REDUC TION MANAGEMENT; RN TO ASSESS AND OBSERVE, MEMBERSHIP ADVISOR/AGRICULTURAL MECHANIC TO OBSERVE FALL RISK FACTORS AND EDUCATE PATIENT/CAREGIVER ON STRATEGIES TO MINIMIZE THE RISK OF FALLING. [code = FALL REDUCTION MANAGEMENT; RN TO ASSESS AND OBSERVE, MEMBERSHIP ADVISOR/AGRICULTURAL MECHANIC TO OBSERVE FALL RISK FACTORS AND EDUCATE PATIENT/CAREGIVER ON STRATEGIES TO MINIMIZE THE RISK OF FALLING.] Future Scheduled Test RESPIRATOR Y SYSTEM MANAGEMENT; RN TO ASSESS AND TEACH, MEMBERSHIP ADVISOR/AGRICULTURAL MECHANIC TO OBSERVE AND TEACH RELATED TO ALTERED RESPIRATORY STATUS TO MINIMIZE COMPLICATIONS AND REDUCE HOSPITALIZATION. [code = RESPIRATORY SYSTEM MANAGEMENT; RN TO ASSESS AND TEACH, MEMBERSHIP ADVISOR/AGRICULTURAL MECHANIC TO OBSERVE AND TEACH RELATED TO ALTERED [...] End Date/Time Encounter Type Admission Type Attending [facility] Care Department Encounter ID Discharge Date Discharge Status Discharge Condition Discharge Reason Percent Goals Met 2024-03-22 00:00:00 2024-07-19 00:00:00 Outpatient JOSE MARIARTIFIC DAGOBERTO NEIL [facility] [id number]
--- OUTSIDE RECORDS SUMMARY | 2024-06-12 13:29 | XMS_ITS | Encounter Summary ---
Author Organization [employer] Address [address] [facility] 7t [place] [address] Care Team Providers Care Steam Shovel Engineer Name Role Phone Sesar Pereyra MD Primary Care Provider +1- [phone] Encounter Details Date Type Department Care Team ([facility] st Contact Info) Description 05/15/2024 Telephone [facility] CH[facility] MED & PEDS [address] [place], [place] [phone] Sesar Pereyra MD [address] [place] [address] Social History Tobacco Use Types Packs/Day Years [...] list. If any questions contact Adilia at [phone] documented in this encounter Plan of Treatment Upcoming Encounters Date Type Department Care Team (Late st Contact Info) Description 06/13/2024 1:00 PM EST Office Visit [facility] MED & PEDS [address] [place] [address] Sesar Pereyra MD [address] [place] [address] documented as of this encounter Visit Diagnoses Not on filedocumented in this encounter Additional Health Concerns Assessment Noted Time PHQ-9 Depression Total Score: 16 024 10:59 AM EDT documented as of this encounter Care Teams Steam Shovel Engineer Relationship Specialty Start Date End Date Sesar Pereyra MD [address] [place] [address] PCP - General Internal Medicine 03/01/21 [facility] 03/22/24 documented as of this encounter
--- OUTSIDE RECORDS SUMMARY | 2024-06-12 13:29 | XMS_ITS | Encounter Summary ---
Author Organization [employer] Address [address] [facility] 7t [place] [address] Care Team Providers Care Pre Sales Technical Engineer Name Role Phone Sesar Pereyra MD Primary Care Provider +1- [phone] Reason for Visit * Reason Comments Med Refill Encounter Details Date Type Department Care Team ([facility] st Contact Info) Description 10/30/2023 Refill [facility] CHC MED & PEDS [address] [place], [place] [phone] Sesar Pereyra MD [address] [place] [address] PVD (peripheral vascular disease) (CMS/HCC); Longstanding persistent [...] Upcoming Encounters Date Type Department Care Team ([facility] st Contact Info) Description 06/13/2024 1:00 PM EST Office Visit [facility] MED & PEDS [address] [place] [address] Sesar Pereyra MD [address] [place] [address] documented as of this encounter Visit Diagnoses Diagnosis PVD (peripheral vascular disease) (CMS/HCC) Unspecified peripheral vascular disease Longstanding persistent atrial fibrillation (CMS/HCC) documented in this encounter Additional Health Concerns Assessment Noted Time PHQ-9 Depression Total Score: 16 024 10:59 AM EDT documented as of this encounter Care Teams Pre Sales Technical Engineer Relationship Specialty Start Date End Date Sesar Pereyra MD [address] [place] [address] PCP - General Internal Medicine [facility] documented as of this encounter
--- OUTSIDE RECORDS SUMMARY | 2024-06-12 13:29 | XMS_ITS | Encounter Summary ---
Author Organization [employer] Address [address] [facility] 7t [place] [address] Care Team Providers Care Carbon Dioxide Operator Name Role Phone Sesar Pereyra MD Primary Care Provider +1- [phone] Reason for Visit * Reason Comments Med Refill Encounter Details Date Type Department Care Team ([facility] Contact Info) Description 06/10/2022 Refill [facility] MED & PEDS [address] [place] [address] Sesar Pereyra MD [address] [place] [address] Primary insomnia Social History Tobacco Use Types [...] Upcoming Encounters Date Type Department Care Team ([facility] Contact Info) Description 06/13/2024 1:00 PM EST Office Visit [facility] MED & PEDS [address] [place], [place] [phone] Sesar Pereyra MD [address] [place] [address] documented as of this encounter Visit Diagnoses Diagnosis Primary insomnia Persistent disorder of initiating or maintaining sleep documented in this encounter Care Teams Carbon Dioxide Operator Relationship Specialty Start Date End Date Sesar Pereyra MD [address] [place] [address] PCP - General Internal Medicine 03/01/21 [facility] 03/22/24 documented as of this encounter
--- OUTSIDE RECORDS SUMMARY | 2024-06-12 13:29 | XMS_ITS | Encounter Summary ---
Author Organization [employer] Address [address] [facility] 7t [place] [address] Care Team Providers Care Field Nurse Name Role Phone Sesar Pereyra MD Primary Care Provider +1- [phone] Reason for Visit * Reason Onset Date Comments Lab Orders 05/04/2022 Encounter Details Date Type Department Care Team ([facility] st Contact Info) Description 05/04/2022 Telephone [facility] MEDICINE [address] [place] [address] Sesar Pereyra MD [address] [place] [address] Lab Orders Social History Tobacco Use Types [...] pt requesting status n lab referral to [facility] Please contact pt at [phone] * Telephone Encounter - Jacquelyn Abel - 05/04/2022 8:11 AM EST Tc from pt requesting a status update on lab orders. Please contact at [phone] documented in this encounter Plan of Treatment Upcoming Encounters Date Type Department Care Team (Late st Contact Info) Description 06/13/2024 1:00 PM EST Office Visit [facility] CHC MED & PEDS [address] [place] [address] Sesar Pereyra MD [address] [place] [address] Scheduled Orders Name Type Priority Associated Diagnoses Orde r Schedule Basic Metabolic Panel Lab Routine Essential hypertension Expected: 05/05/2022 (Approximate), Expires: 05/05/2023 documented as of this encounter Visit Diagnoses Diagnosis Essential hypertension- Primary Unspecified essential hypertension documented in this encounter Care Teams Field Nurse Relationship Specialty Start Date End Date Sesar Pereyra MD [address] [place] [id number] PCP - General Internal Medicine 03/01/21 [facility] 03/22/24 documented as of this encounter
--- OUTSIDE RECORDS SUMMARY | 2024-06-12 13:29 | XMS_ITS | Encounter Summary ---
Author Organization [employer] Address [address] [facility] 7t [place] [address] Care Team Providers Care Potato Chip Cooker Machine Name Role Phone Sesar Pereyra MD Primary Care Provider +1- [phone] Reason for Visit * Reason Onset Date Comments Med Refill 04/18/2024 Encounter Details Date Type Department Care Team ([facility] st Contact Info) Description 04/18/2024 Telephone [facility] MEDICINE [address] [place] [address] Sesar Pereyra MD [address] [place] [address] Med Refill Social History Tobacco Use Types [...] needing refill : To be sent to: [facility] - [place], [place] - [address] [place] [address] STEET documented in this encounter Plan of Treatment Upcoming Encounters Date Type Department Care Team (Late st Contact Info) Description 06/13/2024 1:00 PM EST Office Visit [facility] MED & PEDS [address] [place] [address] Sesar Pereyra MD [address] [place] [address] documented as of this encounter Visit Diagnoses Not on filedocumented in this encounter Additional Health Concerns Assessment Noted Time PHQ-9 Depression Total Score: 16 024 10:59 AM EDT documented as of this encounter Care Teams Potato Chip Cooker Machine Relationship Specialty Start Date End Date Sesar Pereyra MD [address] [place] [address] PCP - General Internal Medicine 11/1/21 [facility] 03/22/24 documented as of this encounter
--- OUTSIDE RECORDS SUMMARY | 2024-06-12 13:29 | XMS_ITS | Encounter Summary ---
Author Organization [employer] Address [address] [facility] 7t [place] [address] Care Team Providers Care Dispatcher Service Or Work Name Role Phone Sesar Pereyra MD Primary Care Provider +1- [phone] Reason for Visit * Reason Comments Med Refill Encounter Details Date Type Department Care Team ([facility] st Contact Info) Description 08/29/2023 Refill [facility] MEDICINE [address] [place] [address] Sesar Pereyra MD [address] [place] [address] Social History Tobacco Use Types Packs/Day Years [...] [facility] MED & PEDS [address] [place] [address] Sesar Pereyra MD [address] [place] [address] documented as of this encounter Visit Diagnoses Not on filedocumented in this encounter Additional Health Concerns Assessment Noted Time PHQ-9 Depression Total Score: 16 024 10:59 AM EDT documented as of this encounter Care Teams Dispatcher Service Or Work Relationship Specialty Start Date End Date Sesar Pereyra MD [address] [place] [address] PCP - General Internal Medicine 03[facility]01[facility] documented as of this encounter
--- OUTSIDE RECORDS SUMMARY | 2024-06-12 13:29 | XMS_ITS | Encounter Summary ---
Author Organization [employer] Address [address] [facility] [address] [place] [address] Care Team Providers Care Local Company Refrigerated Truck Driver Name Role Phone Sesar Pereyra MD Primary Care Provider +1- [phone] Reason for Referral * Consultation (Routine) - Closed Specialty Diagnoses / Procedures Referred By Contac t Referred To Contact Geriatric Medicine Diagnoses Memory disturbance Sesar Pereyra MD [address] [place] [address] Phone: tel: fax: [facility] [address] [place] [address] Phone: tel: fax: Referral ID Status Reason Start Date Expiration Date V isits Requested Visits Authorized [id number] Closed Specialty Services Required 01/11/2024 01/10/2025 1 1 Encounter Details Date Type Department Care Team (Late st Contact Info) Description 01/11/2024 Orders Only [facility] CHC MED & PEDS [address] [place], [place] [phone] Sesar Pereyra MD [address] [place], [place] [phone] Memory disturbance (Primary Dx) Social History Tobacco [...] Description 06/13/2024 1:00 PM EST Office Visit [facility] CH[facility] MED & PEDS [address] [place] [address] Sesar Pereyra MD [address] [place] [address] Scheduled Referrals Name Type Priority Associated Diagnoses Orde r Schedule Referral to Geriatrics Outpatient Referral Routine Memory disturbance Expected: 01/11/2024 (Approximate), Expires: 01/10/2025 documented as of this encounter Visit Diagnoses Diagnosis Memory disturbance- Primary Memory loss documented in this encounter Additional Health Concerns Assessment Noted Time PHQ-9 Depression Total Score: 16 024 10:59 AM EDT documented as of this encounter Care Teams Local Company Refrigerated Truck Driver Relationship Specialty Start Date End Date Sesar Pereyra MD [address] [place] [address] PCP - General Internal Medicine 03/01/21 [facility] 03/22/24 documented as of this encounter
[2024-06-12 13:39] LABS: Anion Gap 13 (12-20); Blood Urea Nitrogen 18 mg/dL (9-16); Calcium 9.1 mg/dL (8.4-10.2); Carbon Dioxide 24 mmol/L (22-29); Chloride 109 mmol/L (96-108); Estimated Glomerular Filt Rate > 60; Sodium 142 mmol/L (135-145)
== END 2024-06-12 10:43 | disposition home or self-care (01) ==
LOC: HO.LAB 10:42
PROVIDERS: PCP Internal Medicine; Visit Provider Internal Medicine Nephrology
DX: I15.0 Renovascular hypertension (principal); N18.31 Chronic kidney disease, stage 3a; I10 Essential (primary) hypertension; N18.30 Chronic kidney disease, stage 3 unspecified
CPT/HCPCS: 36415; 80051; 82310; 82565; 84520; 99212

== ENCOUNTER 2024-06-19 15:01 | Outpatient (AMB) | payer MEDICARE, MEDICAID, SELFPAY ==
--- OUTSIDE RECORDS SUMMARY | 2024-06-19 15:03 | XMS_ITS | Encounter Summary ---
Author Organization [facility] Address [address] [place] [address] Care Team Providers Care Environmental Remediation Specialist Name Role Phone Yolande Nicholas DO Primary Care Pro vider Unavailable Anuj Priest DO Primary Care Provider [facility], Pcp Primary Care Provider Unavailabl e Reason for Visit * Reason Onset Date Comments Provider Call Back 11/08/2019 Encounter Details Date Type Department Care Team Description 11/08/2019 Telephone Adult Medicine [address] [address] Yolande Nicholas DO Provider Call Back Social [...] Castillo - 11/08/2019 9:02 AM EDT Patients medical underwriter Ame , left a voicemail on patient services answering machine about their narcotic appeal decision. She would like a call back to know the outcome. Please give her a call and tellthem julian. Thank you. documented in this encounter Plan of Treatment Not on file documented as of this encounter Visit Diagnoses Not on filedocumented in this encounter Care Teams Environmental Remediation Specialist Relationship Specialty Start Date End Date Yolande Nicholas DO PCP - General Internal Medicine 12/03/18 10/08/20 Anuj Priest DO PCP - General Internal Medicine 10/09/20 2 [facility], Pcp PCP - General Internal Medicine 06/17/21 documented as of this encounter
--- OUTSIDE RECORDS SUMMARY | 2024-06-19 15:03 | XMS_ITS | Encounter Summary ---
Author Organization [facility] Address [address] [place] [address] Care Team Providers Care Railroad Crossing Protection Maintainer Name Role Phone Ghassan Burciaga MD Primary Care Provider Unavail able Pierre Arevalo MD Primary Care Provider Judy vailable Gerson Dawson MD Primary Care Provider Unavail able [facility], Pcp Primary Care Provider Unavailabl e Coleman Mccarthy MD Primary Care Provider Unavaila Ayo Demarco MD Primary Care Provider [phone] Annalee Jones MD Primary Care Provider Un available Kim Banegas Yolande DO Primary Care Pro vider Unavailable Anuj Priest DO Primary Care Provider Judy vailable [facility], Pcp Primary Care Provider Unavailabl e Encounter Details Date Type Department Care Team Description 06/25/2011 Pt. Non Urgent Medic al Question Medicine/Pediatrics - [address] [address] Ghassan Burciaga MD Social History Tobacco Use [...] on filedocumented in this encounter Care Teams Railroad Crossing Protection Maintainer Relationship Specialty Start Date End Date Ghassan Burciaga MD PCP - General 07/24/00 05/06/13 Pierre Arevalo MD PCP - General Internal Medicine 05/07/13 4 Gerson Dawson MD PCP - General Internal Medicine 01/30/14 03/20/14 [facility], Pcp PCP - General Internal Medicine 03/21/14 05/06/14 Coleman Mccarthy MD PCP - General Internal Medicine 05/07/14 07/18/16 Ayo Carpio MD [address] [place] [address] PCP - General Internal Medicine 07/19/16 01/05/17 Annalee Jones MD [address] [place] [address] PCP - General Internal Medicine 01/06/17 12/02/18 Yolande Nicholas, [address] [address] PCP - General Internal Medicine 12/03/18 10/08/20 Anuj Priest, [address] [address] PCP - General Internal Medicine 10/09/20 06/16/21 [facility], Pcp PCP - General Internal Medicine 06/17/21 documented as of this encounter
--- OUTSIDE RECORDS SUMMARY | 2024-06-19 15:03 | XMS_ITS | Encounter Summary ---
Author Organization [facility] Address [address] [place] [address] Care Team Providers Care Shearing Machine Operator Name Role Phone Ghassan Burciaga MD Primary Care Provider Unavail able Pierre Arevalo MD Primary Care Provider Judy vailable Gerson Dawson MD Primary Care Provider Unavail able [facility], Pcp Primary Care Provider Unavailabl e Coleman Mccarthy MD Primary Care Provider Unavaila Ayo Demarco MD Primary Care Provider [phone] Annalee Jones MD Primary Care Provider Un available Kim Banegas Yolande DO Primary Care Pro vider Unavailable Anuj Priest DO Primary Care Provider Judy vailable [facility], Pcp Primary Care Provider Unavailabl e Encounter Details Date Type Department Care Team Description 06/25/2011 Pt. Non Urgent Medic al Question Medicine/Pediatrics - [address] [address] Ghassan Burciaga MD Social History Tobacco Use [...] filedocumented in this encounter Care Teams Shearing Machine Operator Relationship Specialty Start Date End Date Ghassan Burciaga MD PCP - General 07/24/00 05/06/13 Pierre Arevalo MD PCP - General Internal Medicine 05/07/13 4 Gerson Dawson MD PCP - General Internal Medicine 01/30/14 03/20/14 [facility], Pcp PCP - General Internal Medicine 03/21/14 05/06/14 Coleman Mccarthy MD PCP - General Internal Medicine 05/07/14 07/18/16 Ayo Carpio MD [address] [place] [address] PCP - General Internal Medicine 07/19/16 01/05/17 Annalee Jones MD [address] [place] [address] PCP - General Internal Medicine 01/06/17 12/02/18 Yolande Nicholas, [address] [address] PCP - General Internal Medicine 12/03/18 10/08/20 Anuj Priest, [address] [address] PCP - General Internal Medicine 10/09/20 06/16/21 [facility], Pcp PCP - General Internal Medicine 06/17/21 documented as of this encounter
--- OUTSIDE RECORDS SUMMARY | 2024-06-19 15:03 | XMS_ITS | Encounter Summary ---
Author Organization [facility] Address [address] [place] [address] Care Team Providers Care Payroll Machine Operator Name Role Phone Yolande Nicholas DO Primary Care Pro vider Unavailable Anuj Priest DO Primary Care Provider Judy Gardner, Pcp Primary Care Provider Unavailabl e Encounter Details Date Type Department Care Team Description 10/07/2019 Traveling Engineer Report Medical Records [address] [place] [address] Dhruv Garcia MD Social History Tobacco Use [...] filedocumented in this encounter Care Teams Payroll Machine Operator Relationship Specialty Start Date End Date Yolande Nicholas DO PCP - General Internal Medicine 12/03/18 10/08/20 Anuj Priest DO PCP - General Internal Medicine 10/09/20 Jj, Pcp PCP - General Internal Medicine 06/17/21 documented as of this encounter
--- OUTSIDE RECORDS SUMMARY | 2024-06-19 15:03 | XMS_ITS | Encounter Summary ---
Author Organization [employer] [facility] Address [address] [place] [address] Care Team Providers Care Inspector Cold Working Name Role Phone Ghassan Burciaga MD Primary Care Provider Unavail able Pierre Arevalo MD Primary Care Provider Judy vailable Gerson Dawson MD Primary Care Provider Unavail able [facility], Pcp Primary Care Provider Unavailabl e Coleman Mccarthy MD Primary Care Provider Unavaila Ayo Demarco MD Primary Care Provider [phone] Annalee Jones MD Primary Care Provider Un available Pascual Nicholasabela DO Primary Care Pro vider Unavailable Anuj Priest DO Primary Care Provider Judy vailable [facility], Pcp Primary Care Provider Unavailabl e Encounter Details Date Type Department Care Team Description 07/05/2011 Set Up Mold Technician Report Medical Records [address] [place] [address] Abstract, Provider Social History Tobacco Use Types [...] on filedocumented in this encounter Care Teams Inspector Cold Working Relationship Specialty Start Date End Date Ghassan Burciaga MD PCP - General 07/24/00 05/06/13 Pierre Arevalo MD PCP - General Internal Medicine 05/07/13 4 Gerson Dawson MD PCP - General Internal Medicine 01/30/14 03/20/14 [facility], Pcp PCP - General Internal Medicine 03/21/14 05/06/14 Coleman Mccarthy MD PCP - General Internal Medicine 05/07/14 07/18/16 Ayo Carpio MD [address] [place], [place] [id number] PCP - General Internal Medicine 07/19/16 01/05/17 Annalee Jones MD [address] [place], [place] [id number] PCP - General Internal Medicine 01/06/17 12/02/18 Yolande Nicholas DO [address] [place] [address] PCP - General Internal Medicine 12/03/18 10/08/20 Anuj Priest DO [address] [place] [address] PCP - General Internal Medicine 10/09/20 06/16/21 [facility], Pcp PCP - General Internal Medicine 06/17/21 documented as of this encounter
--- OUTSIDE RECORDS SUMMARY | 2024-06-19 15:03 | XMS_ITS | Encounter Summary ---
Author Organization [facility] Address [address] [place] [address] Care Team Providers Care Commercial Green Building Architect Name Role Phone Yolande Nicholas DO Primary Care Pro vider Unavailable Anuj Priest DO Primary Care Provider Judy Gardner, Pcp Primary Care Provider Unavailabl e Encounter Details Date Type Department Care Team Description 11/08/2019 Composite Boat Builder Report Medical Records [address] [place] [address] Cedrick Siddiqui Social History Tobacco Use Types [...] filedocumented in this encounter Care Teams Commercial Green Building Architect Relationship Specialty Start Date End Date Yolande Nicholas DO PCP - General Internal Medicine 12/03/18 10/08/20 Anuj Priest DO PCP - General Internal Medicine 10/09/20 2 Jj, Pcp PCP - General Internal Medicine 06/17/21 documented as of this encounter
--- OUTSIDE RECORDS SUMMARY | 2024-06-19 15:03 | XMS_ITS | Encounter Summary ---
Author Organization [facility] Address [address] [place] [address] Care Team Providers Care Tugboat Engineer Name Role Phone Yolande Nicholas DO Primary Care Pro vider Unavailable Anuj Priest DO Primary Care Provider [facility], Pcp [facility] Encounter Details Date Type Department Care Team Description 09/24/2019 Pt. Non Urgent Medic al Question Adult Medicine [address] [address] Yolande Nicholas DO Social History Tobacco Use [...] sore. I went to the ER in [place] to have my leg looked at and [...] been this way since i came from [facility] 2wks or more. Need help documented in this encounter Plan of Treatment Not on file documented as of this encounter Visit Diagnoses Not on filedocumented in this encounter Care Teams Tugboat Engineer Relationship Specialty Start Date End Date Yolande Nicholas DO PCP - General Internal Medicine 12/03/18 10/08/20 Anuj Priest DO PCP - General Internal Medicine 10/09/[address] [place] [address], Pcp PCP - General Internal Medicine 06/17/21 documented as of this encounter
--- OUTSIDE RECORDS SUMMARY | 2024-06-19 15:03 | XMS_ITS | Encounter Summary ---
Author Organization [facility] Address [address] [place] [address] Care Team Providers Care Top Lifter Name Role Phone Yolande Nicholas DO Primary Care Pro vider Unavailable Anuj Priest DO Primary Care Provider Judy Gardner, Pcp Primary Care Provider Unavailabl e Encounter Details Date Type Department Care Team Description 09/20/2019 Pt. Non Urgent Medic al Question Adult Medicine [address] [address] Yolande Nicholas DO Social History Tobacco Use [...] on filedocumented in this encounter Care Teams Top Lifter Relationship Specialty Start Date End Date Yolande Nicholas DO PCP - General Internal Medicine 12/03/18 10/08/20 Anuj Priest DO PCP - General Internal Medicine 10/09/20 Molly Gardner, Pcp PCP - General Internal Medicine 06/17/21 documented as of this encounter
--- OUTSIDE RECORDS SUMMARY | 2024-06-19 15:03 | XMS_ITS | Encounter Summary ---
Author Organization [employer] [facility] Address [address] [place] [address] Care Team Providers Care Packing And Shipping Clerk Name Role Phone Ghassan Burciaga MD Primary Care Provider Unavail able Pierre Arevalo MD Primary Care Provider Judy vailable Gerson Dawson MD Primary Care Provider Unavail able [facility], Pcp Primary Care Provider Unavailabl e Coleman Mccarthy MD Primary Care Provider Unavaila Ayo Demarco MD Primary Care Provider [phone] Annalee Jones MD Primary Care Provider Un available Pascual Nicholasabela DO Primary Care Pro vider Unavailable Anuj Priest DO Primary Care Provider Judy vailable [facility], Pcp Primary Care Provider Unavailabl e Encounter Details Date Type Department Care Team Description 10/28/2011 Insemination Worker Report Medical Records [address] [place] [address] Nhan Herbert MD Social History Tobacco Use [...] on filedocumented in this encounter Care Teams Packing And Shipping Clerk Relationship Specialty Start Date End Date Ghassan Burciaga MD PCP - General 07/24/00 05/06/13 Pierre Arevalo MD PCP - General Internal Medicine 05/07/13 4 Gerson Dawson MD PCP - General Internal Medicine 01/30/14 03/20/14 [facility], Pcp PCP - General Internal Medicine 03/21/14 05/06/14 Coleman Mccarthy MD PCP - General Internal Medicine 05/07/14 07/18/16 Ayo Carpio MD [address] [place], [place] [id number] PCP - General Internal Medicine 07/19/16 01/05/17 Annalee Jones MD [address] [place], [place] [id number] PCP - General Internal Medicine 01/06/17 12/02/18 Yolande Nicholas DO [address] [place] [address] PCP - General Internal Medicine 12/03/18 10/08/20 Anuj Priest DO [address] [place] [address] PCP - General Internal Medicine 10/09/20 06/16/21 [facility], Pcp PCP - General Internal Medicine 06/17/21 documented as of this encounter
--- OUTSIDE RECORDS SUMMARY | 2024-06-19 15:03 | XMS_ITS | Encounter Summary ---
Author Organization [facility] Address [address] [place] [address] Care Team Providers Care Microwave Oven Assembler Name Role Phone Yolande Nicholas DO Primary Care Pro vider Unavailable Anuj Priest DO Primary Care Provider [facility], Pcp Primary Care Provider Unavailabl e Reason for Visit * Reason Onset Date Comments anxiety 09/17/2019 Encounter Details Date Type Department Care Team Description 09/17/2019 Pt. Non Urgent Medic al Question Adult Medicine [address] [address] Yolande Nicholas DO Social History Tobacco Use [...] 10 righr now after getting out of [facility] for the covid 19 my girl friend it seems like i am a different person. You have now idea what i went through there in the hospit al and coming home in this of anxiety. I need help like i said the visiting nurse sugested i take ativan for my anxiety. My therpist Ava from [facility] said i should be taking a higher dose ofxienty med. If you have any kind of syphinthy for me . To get me through this difficult time you will help me with this terrible anxiety Alex Nettles documented in this encounter Plan of Treatment Not on file documented as of this encounter Visit Diagnoses Not on filedocumented in this encounter Care Teams Microwave Oven Assembler Relationship Specialty Start Date End Date Yolande Nicholas DO PCP - General Internal Medicine 12/03/18 10/08/20 Anuj Priest DO PCP - General Internal Medicine 10/09/[address] [place] [address], Pcp PCP - General Internal Medicine 06/17/21 documented as of this encounter
--- OUTSIDE RECORDS SUMMARY | 2024-06-19 15:03 | XMS_ITS | Encounter Summary ---
Author Organization [facility] Address [address] [place] [address] Care Team Providers Care Commissary Manager Name Role Phone Yolande Nicholas DO Primary Care Pro vider Unavailable Anuj Priest DO Primary Care Provider [facility], Pcp [facility] Encounter Details Date Type Department Care Team Description 09/26/2019 Pt. Non Urgent Medical Question Adult Medicine [address] [address] Alana Stinson MD [address] [place] [phone] Social History Tobacco Use Types Packs/Day [...] him, told him needs to fu / [facility] cards for both. Can consider change in [...] on filedocumented in this encounter Care Teams Commissary Manager Relationship Specialty Start Date End Date Yolande Nicholas DO PCP - General Internal Medicine 12/03/18 10/08/20 Anuj Priest DO PCP - General Internal Medicine 10/09/20 2 [facility], Pcp PCP - General Internal Medicine 06/17/21 documented as of this encounter
--- OUTSIDE RECORDS SUMMARY | 2024-06-19 15:03 | XMS_ITS | Encounter Summary ---
Author Organization [facility] Address [address] [place] [address] Care Team Providers Care Category Analyst Name Role Phone Yolande Nicholas DO Primary Care Pro vider Unavailable Anuj Priest DO Primary Care Provider Judy Gardner, Pcp Primary Care Provider Unavailabl e Encounter Details Date Type Department Care Team Description 10/08/2019 Home Health Certification Medical Records [address] [place] [address] Home, [facility] [address] [facility] [address] [place] [address] Social History Tobacco Use Types Packs/Day Years [...] on filedocumented in this encounter Care Teams Category Analyst Relationship Specialty Start Date End Date Yolande Nicholas DO PCP - General Internal Medicine 12/03/18 10/08/20 Anuj Priest DO PCP - General Internal Medicine 10/09/20 Molly Gardner, Pcp PCP - General Internal Medicine 06/17/21 documented as of this encounter
--- OUTSIDE RECORDS SUMMARY | 2024-06-19 15:04 | XMS_ITS | Encounter Summary ---
Author Organization [employer] Address [address] [facility] 7[address] [place] [address] Care Team Providers Care Bit Sharpener Operator Name Role Phone Sesar Pereyra MD Primary Care Provider [phone] Encounter Details Date Type Department Care Team (Latest Contact Info) Description 06/13/2024 Travel Social History Tobacco Use Types Packs/Day [...] Care Team (Late st Contact Info) Description 09/11/2024 10:30 AM EDT Office Visit [facility] [address] [place] [address] Sesar Pereyra MD [address] [place] [address] documented as of this encounter Visit Diagnoses Not on filedocumented in this encounter Additional Health Concerns Assessment Noted Time PHQ-9 Depression Total Score: 16 024 10:59 AM EDT documented as of this encounter Care Teams Bit Sharpener Operator Relationship Specialty Start Date End Date Sesar Pereyra MD [address] [place] [address] PCP - General Internal Medicine [facility] documented as of this encounter
--- OUTSIDE RECORDS SUMMARY | 2024-06-19 15:04 | XMS_ITS | Encounter Summary ---
Author Organization [employer] [facility] Address [address] [place] [address] Care Team Providers Care Missile Facilities Repairer Name Role Phone Ghassan Burciaga MD Primary Care Provider Unavail able Pierre Arevalo MD Primary Care Provider Judy vailable Gerson Dawson MD Primary Care Provider Unavail able [facility], Pcp Primary Care Provider Unavailabl e Coleman Mccarthy MD Primary Care Provider Unavaila Ayo Demarco MD Primary Care Provider [phone] Annalee Jones MD Primary Care Provider Un available Pascual Nicholasabela DO Primary Care Pro vider Unavailable Anuj Priest DO Primary Care Provider Judy vailable [facility], Pcp Primary Care Provider Unavailabl e Encounter Details Date Type Department Care Team Description 09/27/2012 Release of Information Medical Records [address] [place] [address] Abstract, Provider Social History Tobacco Use Types [...] on filedocumented in this encounter Care Teams Missile Facilities Repairer Relationship Specialty Start Date End Date Ghassan Burciaga MD PCP - General 07/24/00 05/06/13 Pierre Arevalo MD PCP - General Internal Medicine 05/07/13 4 Gerson Dawson MD PCP - General Internal Medicine 01/30/14 03/20/14 [facility], Pcp PCP - General Internal Medicine 03/21/14 05/06/14 Coleman Mccarthy MD PCP - General Internal Medicine 05/07/14 07/18/16 Ayo Carpio MD [address] [place], [place] [id number] PCP - General Internal Medicine 07/19/16 01/05/17 Annalee Jones MD [address] [place], [place] [id number] PCP - General Internal Medicine 01/06/17 12/02/18 Yolande Nicholas DO [address] [place] [address] PCP - General Internal Medicine 12/03/18 10/08/20 Anuj Priest DO [address] [place] [address] PCP - General Internal Medicine 10/09/20 06/16/21 [facility], Pcp PCP - General Internal Medicine 06/17/21 documented as of this encounter
--- OUTSIDE RECORDS SUMMARY | 2024-06-19 15:04 | XMS_ITS | Encounter Summary ---
Author Organization [facility] Address [address] [place] [address] Care Team Providers Care Glass Cutter Hand Name Role Phone Yolande Nicholas DO Primary Care Pro vider Unavailable Anuj Priest DO Primary Care Provider [facility], Pcp Primary Care Provider Unavailabl e Reason for Visit * Reason Onset Date Comments Faxed Order 01/16/2020 Encounter Details Date Type Department Care Team Description 01/16/2020 Telephone Adult Medicine [address] [address] Yolande Nicholas DO Faxed Order Social History [...] to be signed and faxed back to [phone] * Telephone Encounter - Lucy Pardo - 01/24/2020 2:35 PM EDT More Faxed orders received from [facility], placed in providers bin for review. Please sign and fax orders to [phone]. * Telephone Encounter - Susan Calderon - 01/16/2020 12:19 PM EDT Physician order for Dr. Yolande Alvarez-Makenzie's signature - tracking # [id number] documented in this encounter Plan of Treatment Not on file documented as of this encounter Visit Diagnoses Not on filedocumented in this encounter Care Teams Glass Cutter Hand Relationship Specialty Start Date End Date Yolande Nicholas DO PCP - General Internal Medicine 12/03/18 10/08/20 Anuj Priest DO PCP - General Internal Medicine 10/09/[address] [place] [address], Pcp PCP - General Internal Medicine 06/17/21 documented as of this encounter
--- OUTSIDE RECORDS SUMMARY | 2024-06-19 15:04 | XMS_ITS | Encounter Summary ---
Author Organization [facility] Address [address] [place] [address] Care Team Providers Care Home Mission Worker Name Role Phone Yolande Nicholas DO Primary Care Pro vider Unavailable Anuj Priest DO Primary Care Provider [facility], Pcp Primary Care Provider Unavailabl e Reason for Visit * Reason Onset Date Comments Faxed Order 12/20/2019 [facility] Encounter Details Date Type Department Care Team Description 12/20/2019 Telephone Adult Medicine [address] [address] Yolande Nicholas DO Faxed Order ([facility]) [...] filedocumented in this encounter Care Teams Home Mission Worker Relationship Specialty Start Date End Date Yolande Nicholas DO PCP - General Internal Medicine 12/03/18 10/08/20 Anuj Priest DO PCP - General Internal Medicine 10/09/20 2 [facility], Pcp PCP - General Internal Medicine 06/17/21 documented as of this encounter
--- OUTSIDE RECORDS SUMMARY | 2024-06-19 15:04 | XMS_ITS | Encounter Summary ---
Author Organization [employer] [facility] Address [address] [place] [address] Care Team Providers Care Billing And Insurance Coordinator Name Role Phone Ghassan Burciaga MD Primary Care Provider Unavail able Pierre Arevalo MD Primary Care Provider Judy vailable Gerson Dawson MD Primary Care Provider Unavail able [facility], Pcp Primary Care Provider Unavailabl e Coleman Mccarthy MD Primary Care Provider Unavaila Ayo Demarco MD Primary Care Provider [phone] Annalee Jones MD Primary Care Provider Un available Pascual Nicholasabela DO Primary Care Pro vider Unavailable Anuj Priest DO Primary Care Provider Judy vailable [facility], Pcp Primary Care Provider Unavailabl e Encounter Details Date Type Department Care Team Description 01/16/2007 Hospital Medical Records [address] [place] [address] Tyler Bloom MD Social History Tobacco Use [...] on filedocumented in this encounter Care Teams Billing And Insurance Coordinator Relationship Specialty Start Date End Date Ghassan Burciaga MD PCP - General 07/24/00 05/06/13 Pierre Arevalo MD PCP - General Internal Medicine 05/07/13 4 Gerson Dawson MD PCP - General Internal Medicine 01/30/14 03/20/14 [facility], Pcp PCP - General Internal Medicine 03/21/14 05/06/14 Coleman Mccarthy MD PCP - General Internal Medicine 05/07/14 07/18/16 Ayo Carpio MD [address] [place], [place] [phone] PCP - General Internal Medicine 07/19/16 01/05/17 Annalee Jones MD [address] [place], [place] [phone] PCP - General Internal Medicine 01/06/17 12/02/18 Yolande Nicholas, DO [address] [place] [address] PCP - General Internal Medicine 12/03/18 10/08/20 Anuj Priest, [address] [place] [address] PCP - General Internal Medicine 10/09/20 06/16/21 [facility], Pcp PCP - General Internal Medicine 06/17/21 documented as of this encounter
--- OUTSIDE RECORDS SUMMARY | 2024-06-19 15:04 | XMS_ITS | Encounter Summary ---
Author Organization [employer] [facility] Address [address] [place] [address] Care Team Providers Care Extraction Machine Operator Name Role Phone Ghassan Burciaga MD Primary Care Provider Unavail able Pierre Arevalo MD Primary Care Provider Judy vailable Gerson Dawson MD Primary Care Provider Unavail able [facility], Pcp Primary Care Provider Unavailabl e Coleman Mccarthy MD Primary Care Provider Unavaila Ayo Demarco MD Primary Care Provider [phone] Annalee Jones MD Primary Care Provider Un available Pascual Nicholasabela DO Primary Care Pro vider Unavailable Anuj Priest DO Primary Care Provider Judy vailable [facility], Pcp Primary Care Provider Unavailabl e Encounter Details Date Type Department Care Team Description 09/21/2012 Merchandise Planner Report Medical Records [address] [place] [address] Anuj Easton Social History Tobacco Use Types [...] on filedocumented in this encounter Care Teams Extraction Machine Operator Relationship Specialty Start Date End Date Ghassan Burciaga MD PCP - General 07/24/00 05/06/13 Pierre Arevalo MD PCP - General Internal Medicine 05/07/13 4 Gerson Dawson MD PCP - General Internal Medicine 01/30/14 03/20/14 [facility], Pcp PCP - General Internal Medicine 03/21/14 05/06/14 Coleman Mccarthy MD PCP - General Internal Medicine 05/07/14 07/18/16 Ayo Carpio MD [address] [place], [place] [id number] PCP - General Internal Medicine 07/19/16 01/05/17 Annalee Jones MD [address] [place], [place] [id number] PCP - General Internal Medicine 01/06/17 12/02/18 Yolande Nicholas DO [address] [place] [address] PCP - General Internal Medicine 12/03/18 10/08/20 Anuj Priest DO [address] [place] [address] PCP - General Internal Medicine 10/09/20 06/16/21 [facility], Pcp PCP - General Internal Medicine 06/17/21 documented as of this encounter
--- OUTSIDE RECORDS SUMMARY | 2024-06-19 15:04 | XMS_ITS | Encounter Summary ---
Author Organization [facility] Address [address] [place] [address] Care Team Providers Care Grades 1 Through 5 Teacher Name Role Phone Yolande Nicholas DO Primary Care Pro vider Unavailable Anuj Priest DO Primary Care Provider [facility], Pcp Primary Care Provider [facility] e Encounter Details Date Type Department Care Team Description 01/22/2020 Pt. Non Urgent Medic al Question Adult Medicine [address] [address] Yolande Nicholas DO Social History Tobacco Use [...] [facility]. At this point we have followed all your previous orders regarding who to see and when. Regarding meeting [facility] Needs, we are working with Luda He APRN at [facility] in [place], [place] P: [phone] Therefore, from all the doctor's reports you [...] on filedocumented in this encounter Care Teams Grades 1 Through 5 Teacher Relationship Specialty Start Date End Date Yolande Nicholas DO PCP - General Internal Medicine 12/03/18 10/08/20 Anuj Priest DO PCP - General Internal Medicine 10/09/[address] [place] [address], Pcp PCP - General Internal Medicine 06/17/21 documented as of this encounter
--- OUTSIDE RECORDS SUMMARY | 2024-06-19 15:04 | XMS_ITS | Encounter Summary ---
Author Organization [employer] [facility] Address [address] [place] [address] Care Team Providers Care Vision Therapist Name Role Phone Ghassan Burciaga MD Primary Care Provider Unavail able Pierre Arevalo MD Primary Care Provider Judy vailable Gerson Dawson MD Primary Care Provider Unavail able [facility], Pcp Primary Care Provider Unavailabl e Coleman Mccarthy MD Primary Care Provider Unavaila Ayo Demarco MD Primary Care Provider [phone] Annalee Jones MD Primary Care Provider Un available Pascual Nicholasabela DO Primary Care Pro vider Unavailable Anuj Priest DO Primary Care Provider Judy vailable [facility], Pcp Primary Care Provider Unavailabl e Encounter Details Date Type Department Care Team Description 08/29/2011 Release of Information Medical Records [address] [place] [address] Abstract, Provider Social History Tobacco Use Types Packs/Day Years Used Date Smoking Tobacco: Former Cigarettes 1 35 Q uit: 07/26/2005 Smokeless Tobacco: Never Alcohol Use Standard Drinks/Week Comments No 0 (1 standard drink = 0.6 oz pur e alcohol) prior heavy stopped 3 Sex Assigned at Date Recorded Not on file documented as of this encounter Plan of Treatment Not on file documented as of this encounter Visit Diagnoses Not on filedocumented in this encounter Care Teams Vision Therapist Relationship Specialty Start Date End Date Ghassan Burciaga MD PCP - General 07/24/00 05/06/13 Pierre Arevalo MD PCP - General Internal Medicine 05/07/13 4 Gerson Dawson MD PCP - General Internal Medicine 01/30/14 03/20/14 [facility] Pcp PCP - General Internal Medicine 03/21/14 05/06/14 Coleman Mccarthy MD PCP - General Internal Medicine 05/07/14 07/18/16 Ayo Carpio MD [address] [place], [place] [id number] PCP - General Internal Medicine 07/19/16 01/05/17 Annalee Jones MD [address] [place], [place] [id number] PCP - General Internal Medicine 01/06/17 12/02/18 Yolande Nicholas DO [address] [place] [address] PCP - General Internal Medicine 12/03/18 10/08/20 Anuj Priest DO [address] [place] [address] PCP - General Internal Medicine 10/09/20 06/16/21 [facility], Pcp PCP - General Internal Medicine 06/17/21 documented as of this encounter
--- OUTSIDE RECORDS SUMMARY | 2024-06-19 15:04 | XMS_ITS | Encounter Summary ---
Author Organization [employer] Address [address] [facility] 7t [place] [address] Care Team Providers Care Word Processor Operator Name Role Phone Sesar Pereyra MD Primary Care Provider [phone] Reason for Visit * Reason Onset Date Comments Med Refill 04/26/2024 Encounter Details Date Type Department Care Team ([facility] st Contact Info) Description 04/26/2024 Telephone [facility] MEDICINE [address] [place] [address] Sesar Pereyra MD [address] [place] [address] Med Refill Social History Tobacco Use Types [...] 7.5 MG tablet To be sent to: [facility] - [place], [place] - [address] documented in this encounter Plan of Treatment Upcoming Encounters Date Type Department Care Team (Late st Contact Info) Description 09/11/2024 10:30 AM EDT Office Visit [facility] MED & PEDS [address] [place] [address] Sesar Pereyra MD [address] [place] [address] documented as of this encounter Visit Diagnoses Not on filedocumented in this encounter Additional Health Concerns Assessment Noted Time PHQ-9 Depression Total Score: 16 024 10:59 AM EDT documented as of this encounter Care Teams Word Processor Operator Relationship Specialty Start Date End Date Sesar Pereyra MD [address] [place] [address] PCP - General Internal Medicine 03/01/21 [facility] 03/22/24 documented as of this encounter
--- OUTSIDE RECORDS SUMMARY | 2024-06-19 15:04 | XMS_ITS | Encounter Summary ---
Author Organization [employer] Address [address] [facility] 7t [place] [address] Care Team Providers Care Vice President Safety Name Role Phone Sesar Pereyra MD Primary Care Provider [phone] Reason for Visit * Reason Onset Date Comments Med Refill 04/28/2024 Encounter Details Date Type Department Care Team ([facility] st Contact Info) Description 04/28/2024 Refill [facility] & PEDS [address] [place] [address] Sesar Pereyra MD [address] [place] [address] Social History Tobacco Use Types Packs/Day Years [...] Upcoming Encounters Date Type Department Care Team ([facility] st Contact Info) Description 09/11/2024 10:30 AM EDT Office Visit [facility] MED & PEDS [address] [place] [address] Sesar Pereyra MD [address] [place] [address] documented as of this encounter Visit Diagnoses Not on filedocumented in this encounter Additional Health Concerns Assessment Noted Time PHQ-9 Depression Total Score: 16 024 10:59 AM EDT documented as of this encounter Care Teams Vice President Safety Relationship Specialty Start Date End Date Sesar Pereyra MD [address] [place] [address] PCP - General Internal Medicine 03/01/21 [facility] 03/22/24 documented as of this encounter
--- OUTSIDE RECORDS SUMMARY | 2024-06-19 15:04 | XMS_ITS | Encounter Summary ---
Author Organization [facility] Address [address] [place] [address] Care Team Providers Care Geodetic Engineer Name Role Phone Yolande Nicholas DO Primary Care Pro vider Unavailable Anuj Priest DO Primary Care Provider Judy Gardner, Pcp Primary Care Provider Unavailabl e Encounter Details Date Type Department Care Team Description 2020 [facility] Medical Records [address] [place] [address] Abstract, Provider Social History Tobacco Use Types [...] on filedocumented in this encounter Care Teams Geodetic Engineer Relationship Specialty Start Date End Date Yolande Nicholas DO PCP - General Internal Medicine 12/03/18 10/08/20 Anuj Priest DO PCP - General Internal Medicine 10/09/20 2 J[facility], Pcp PCP - General Internal Medicine 06/17/21 documented as of this encounter
--- OUTSIDE RECORDS SUMMARY | 2024-06-19 15:04 | XMS_ITS | Encounter Summary ---
Author Organization [employer] Address [address] [facility] 7t [place] [address] Care Team Providers Care Support Associate Name Role Phone Sesar Pereyra MD Primary Care Provider [phone] Encounter Details Date Type Department Care Team (Late st Contact Info) Description 06/12/2024 Orders Only GENERIC EXTERNAL DATA DEPARTMENT Provider, Generic External Data Social History Tobacco Use Types Packs/Day Years [...] ([facility] st Contact Info) Description 09/11/2024 10:30 AM EDT Office Visit [facility] MED & PEDS [address] [place] [address] Sesar Pereyra MD [address] [place], [place] [phone] documented as of this encounter Procedures Procedure Name Priority Date/Time Associated Diagnosis Comments CREATININE, SERUM Routine 06/12/2024 12: 09 PM EST UREA NITROGEN (BUN) Routine 06/12/2024 1 2:09 PM EST CALCIUM Routine 06/12/2024 12:09 PM EST ELECTROLYTE PANEL Routine 06/12/2024 12: 09 PM EST documented in this encounter Results * Calcium (06/12/2024 12:09 PM EST) Calcium 9.1 8.4 - 10.2 mg/dL [facility] 06/12/2024 12:0 9 PM EST 06/12/2024 12:14 PM EST us Generic External Data Provider LAB BLOOD ORDERAB LES Final Result [facility] [address] [place] [address] [phone] * Creatinine, Serum (06/12/2024 12:09 PM EST) Creatinine, Serum 1.13 0.5 - 1.4 mg/dL [facility] Estimated Glomerular Filt Rate >60 [facility] Comment:Chronic Kidney Disea se: Estimated GFR < 60 mL/min/1.67h1Wwpddt Kidney Disease: Estimated GFR < 15 mL/min/1.73m2 06/12/2024 12:0 9 PM EST 06/12/2024 12:14 PM EST us Generic External Data Provider LAB BLOOD ORDERAB LES Final Result Performing Organization Address [facility] Co de Phone Number [facility] [address] [place] [phone] * (ABNORMAL) BUN (Blood Urea Nitrogen) (06/12/2024 12:09 PM EST) Urea Nitrogen (BUN) 18(H) 9 - 16 mg/dL [facility] 06/12/2024 12:0 9 PM EST 06/12/2024 12:14 PM EST Generic External Data Provider LAB BLOOD ORDERAB LES Final Result Performing Organization Address [facility] de Phone Number [facility] [address] [place] [phone] * (ABNORMAL) Electrolyte Panel (06/12/2024 12:09 PM EST) Sodium 142 135 - 145 mmol/L [facility] Potassium 4.0 3.3 - 5.1 mmol/L [facility] Comment:Slight Hemolysis.Int erpret result with caution. Chloride 109(H) 96 - 108 mmol/L [facility] Carbon Dioxide 24 22 - 29 mmol/L [facility] Anion Gap 13 12 - 20 [facility] 06/12/2024 12:0 9 PM EST 06/12/2024 12:14 PM EST Generic External Data Provider LAB BLOOD ORDERAB LES Final Result [facility] [address] [place] [address] [phone] documented in this encounter Visit Diagnoses Not on filedocumented in this encounter Additional Health Concerns Assessment Noted Time PHQ-9 Depression Total Score: 16 024 10:59 AM EDT documented as of this encounter Care Teams Support Associate Relationship Specialty Start Date End Date Sesar Pereyra MD [address] [place] [address] PCP - General Internal Medicine 03/01/21 [facility] 03/22/24 documented as of this encounter
--- OUTSIDE RECORDS SUMMARY | 2024-06-19 15:04 | XMS_ITS | Encounter Summary ---
Author Organization [facility] Address [address] [place] [address] Care Team Providers Care Team Guide Name Role Phone Yolande Nicholas DO Primary Care Pro vider Unavailable Anuj Priest DO Primary Care Provider [facility], Pcp Primary Care Provider Unavailabl e Reason for Visit * Reason Onset Date Comments [facility] Call 12/28/2019 Encounter Details Date Type Department Care Team Description 12/28/2019 Telephone Adult Urgent Care - [address] [address] Yolande Nicholas DO [facility] Call Social History [...] [facility] CALL Which [facility] office is calling? [place] [facility] Full name of caller: Bev The [...] on filedocumented in this encounter Care Teams Team Guide Relationship Specialty Start Date End Date Yolande Nicholas DO PCP - General Internal Medicine 12/03/18 10/08/20 Anuj Priest DO PCP - General Internal Medicine 10/09/[address] [place] [address], Pcp PCP - General Internal Medicine 06/17/21 documented as of this encounter
--- OUTSIDE RECORDS SUMMARY | 2024-06-19 15:04 | XMS_ITS | Encounter Summary ---
Author Organization [employer] [facility] Address [address] [place] [address] Care Team Providers Care Set Painter Name Role Phone Ghassan Burciaga MD Primary Care Provider Unavail able Pierre Arevalo MD Primary Care Provider Judy vailable Gerson Dawson MD Primary Care Provider Unavail able [facility], Pcp Primary Care Provider Unavailabl e Coleman Mccarthy MD Primary Care Provider Unavaila Ayo Demarco MD Primary Care Provider [phone] Annalee Jones MD Primary Care Provider Un available Pascual Nicholasabela DO Primary Care Pro vider Unavailable Anuj Priest DO Primary Care Provider Judy vailable [facility], Pcp Primary Care Provider Unavailabl e Encounter Details Date Type Department Care Team Description 01/19/2007 Hospital Medical Records [address] [place] [address] Cathie Hopkins Social History Tobacco Use Types [...] on filedocumented in this encounter Care Teams Set Painter Relationship Specialty Start Date End Date Ghassan Burciaga MD PCP - General 07/24/00 05/06/13 Pierre Arevalo MD PCP - General Internal Medicine 05/07/13 4 Gerson Dawson MD PCP - General Internal Medicine 01/30/14 03/20/14 [facility], Pcp PCP - General Internal Medicine 03/21/14 05/06/14 Coleman Mccarthy MD PCP - General Internal Medicine 05/07/14 07/18/16 Ayo Carpio MD [address] [place], [place] [id number] PCP - General Internal Medicine 07/19/16 01/05/17 Annalee Jones MD [address] [place], [place] [id number] PCP - General Internal Medicine 01/06/17 12/02/18 Yolande Nicholas DO [address] [place] [address] PCP - General Internal Medicine 12/03/18 10/08/20 Anuj Priest DO [address] [place] [address] PCP - General Internal Medicine 10/09/20 06/16/21 [facility], Pcp PCP - General Internal Medicine 06/17/21 documented as of this encounter
--- OUTSIDE RECORDS SUMMARY | 2024-06-19 15:04 | XMS_ITS | Encounter Summary ---
Author Organization [employer] Address [address] [facility] 7t [place] [address] Care Team Providers Care Manager Scientific Name Role Phone Sesar Pereyra MD Primary Care Provider [phone] Encounter Details Date Type Department Care Team ([facility] st Contact Info) Description 04/29/2024 Orders Only [facility] MED & PEDS [address] [place], [place] [phone] Sesar Pereyra MD [address] [place] [address] Closed nondisplaced fracture of acromial end of [...] ([facility] st Contact Info) Description 09/11/2024 10:30 AM EDT Office Visit [facility] MED & PEDS [address] [place] [address] Sesar Pereyra MD [address] [place] [address] documented as of this encounter Visit Diagnoses Diagnosis Closed nondisplaced fracture of acromial end of right clavicle, initial encounter documented in this encounter Additional Health Concerns Assessment Noted Time PHQ-9 Depression Total Score: 16 024 10:59 AM EDT documented as of this encounter Care Teams Manager Scientific Relationship Specialty Start Date End Date Sesar Pereyra MD [address] [place] [address] PCP - General Internal Medicine 03/01/21 [facility] 03/22/24 documented as of this encounter
--- OUTSIDE RECORDS SUMMARY | 2024-06-19 15:04 | XMS_ITS | Encounter Summary ---
Author Organization [facility] Address [address] [place] [address] Care Team Providers Care Fleet Maintenance Foreman Name Role Phone Yolande Nicholas DO Primary Care Pro vider Unavailable Anuj Priest DO Primary Care Provider [facility], Pcp Primary Care Provider Unavailabl e Reason for Visit * Reason Onset Date Comments Faxed Order 01/14/2020 Encounter Details Date Type Department Care Team Description 01/14/2020 Telephone Adult [address] [address] Yolande Nicholas DO Faxed Order Social History [...] encounter Miscellaneous Notes * Telephone Encounter - Susan Calderon - 01/14/2020 8:59 AM EDT Physician orders for Dr. Yolande Gomez's signature - tracking # [id number], [id number], [id number], [id number], [id number] documented in this encounter Plan of Treatment Not on file documented as of this encounter Visit Diagnoses Not on filedocumented in this encounter Care Teams Fleet Maintenance Foreman Relationship Specialty Start Date End Date Yolande Nicholas DO PCP - General Internal Medicine 12/03/18 10/08/20 Anuj Priest DO PCP - General Internal Medicine 10/09/20 2 [facility], Pcp PCP - General Internal Medicine 06/17/21 documented as of this encounter
--- OUTSIDE RECORDS SUMMARY | 2024-06-19 15:04 | XMS_ITS | Encounter Summary ---
Author Organization [facility] Address [address] [facility] [address] [place] [address] Care Team Providers Care Staff Nurse Midwife Name Role Phone Sesar Pereyra MD Primary Care Provider [phone] Reason for Referral * Consultation (Routine) - Authorized Specialty Diagnoses / Procedures Referred By Wander reynolds Referred To Contact Orthopaedic Surgery Diagnoses Low back pain at multiple sites Sesar Pereyra MD [address] [place] [address] Phone: tel: fax: [facility] Orthopedics [address] [place] [address] Phone: tel: Referral ID Status Reason Start Date Expiration Date Visits Requested Visits Authorized [id number] Authorized Specialty Services Required 06/13/2024 06/13/2025 1 1 * Consultation (Routine) - Closed Specialty Diagnoses / Procedures Referred By Wander reynolds Referred To Contact Otolaryngology Diagnoses Tinnitus of right ear Sesar Pereyra MD [address] [place] [address] Phone: tel: fax: [facility] [address] Phone: tel: fax: Referral ID Status Reason Start Date Expiration Date V isits Requested Visits Authorized [id number] Closed Specialty Services Required 06/13/2024 06/13/2025 1 1 Reason for Visit * Reason Comments Follow-up Kidney stones Encounter Details Date Type Department Care Team ([facility] Contact Info) Description 06/13/2024 1:00 PM EST Office Visit [facility] [address] [place] [address] Sesar ePreyra MD [address] [place] [address] Kidney stone (Primary Dx); Primary hypertension; Low back pain at multiple sites; Tinnitus of right ear; Lower urinary tract symptoms Social History Tobacco Use Types Packs/Day Years [...] Sign Reading Time Taken Comments Blood Pressure 140/69 06/13/2024 1:02 PM EST Pulse 62 06/13/2024 1:02 PM EST Temperature 36.5 ??C (97.7 ??F) 06/13/2024 1:02 PM ES T Respiratory Rate 14 06/13/2024 1:02 PM EST Oxygen Saturation 96% 06/13/2024 1:02 PM EST Inhaled Oxygen Concentration - - Weight 111 kg (245 lb) 06/13/2024 1:02 PM EST Height 182.9 cm (6') 06/13/2024 1:02 PM EST Body Mass Index 33.23 06/13/2024 1:02 PM EST documented in this encounter Progress Notes * Sesar Pereyra MD - 06/13/2024 1:00 PM EST Subjective Patient ID: Alex Nettles is a 79 y.o. male who presents for Follow-up (Kidney stones ). HPI Here for follow-up Patient has history of CKD. Evaluated in the emergency department on June 11, 2024 with atrial fibrillation with rapid ventricular response. Also has history of left renal cell carcinoma which was treated with partial nephrectomy in 2006. Had a recent follow-up MRI which revealed a 1.6 cm left renal mass which appears to be enhancing and suspicious for renal cell cancer. His biopsy revealed aclear-cell renal cell carcinoma. Also on Flomax for lower urinary tract symptoms. Recent evaluation 2 days ago by nephrology for his chronic kidney disease which is most likely fromvascular disease. Advised to remain well he dehydrated. Also Doppler of his renal arteries was recommended. Advised to avoid NSAIDs in general. His blood pressure at the pharmacy service associate office was 140/70 with a pulse of 57. No change in management of his hypertension was recommended at that time. It was also recommended to get an evaluation of his low back pain as it could be due to sacroiliitis. During the evaluation Mr. Alex Nettles reports some mild dysuria which could be related to enlarged prostate. No action was recommended Patient reports today that the back pain is located mostly on the right side of the low back and now he starts having pain on the left side of the low back. The pain is exacerbated by bending forwardstanding and movements in general. Mr Alex Nettles is also reporting a tinnitus described as a buzzing sound mostly on the right ear that started more than 2 weeks ago. He hears the sound mostly when it is quiet. No associated drainage, fever or other constitutional symptoms. Mr Alex Nettles would like to be evaluated By ENT Patient Active Problem List Diagnosis Acute ST segment elevation myocardial infarction (CMS/HCC) Anxiety Aortopathy associated with bicuspid aortic valve Cardiomyopathy (CMS/HCC) Centrilobular emphysema (CMS/HCC) Chronic kidney disease (CKD), stage III (moderate) (CMS/HCC) Chronic obstructive pulmonary disease (CMS/HCC) Coronary arteriosclerosis Low back pain of over 3 months duration Essential hypertension Depression with anxiety History of partial nephrectomy Hypercholesteremia Impotence of organic origin Memory disturbance Renal cell carcinoma (CMS/HCC) Acute blood loss anemia Alcohol abuse, episodic drinking behavior Alcohol abuse, in remission Anticoagulant long-term use Atherosclerosis of [place] artery of extremity with intermittent claudication (CMS/HCC) Axonal sensorimotor neuropathy Class 1 obesity Closed fracture of sacrum with delayed healing Complex renal cyst COVID-19 DDD (degenerative disc disease), lumbar Degeneration of intervertebral disc of cervical region Degenerative joint disease (DJD) of hip Degenerative lumbar spinal stenosis Cellulitis Diverticulitis Diverticulitis of colon Encounter for screening colonoscopy Preoperative cardiovascular examination Encounter for surgical aftercare following surgery on the circulatory system Enlarged prostate HCAP (healthcare-associated pneumonia) Heme positive stool History of 2019 novel coronavirus disease (COVID-19) History of colostomy reversal History of diverticulitis History of non-ST elevation myocardial infarction (NSTEMI) History of renal cell carcinoma Hypersomnia Lower urinary tract symptoms Atelectasis Lung nodule Scarring of lung Neuropathy Normocytic anemia Numbness Atrial fibrillation (CMS/HCC) Paroxysmal atrial flutter (CMS/HCC) Poor historian 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) Recurrent major depressive disorder (CMS/HCC) Renal mass S/P cardiac cath Sleep difficulties Sleep disorder Snoring STEMI (ST elevation myocardial infarction) (CMS/HCC) Tobacco use disorder Breakdown (mechanical) of other vascular grafts, initial encounter (CMS/HCC) Vascular graft infection (CMS/HCC) Ascending aortic aneurysm (CMS/HCC) Thoracic aortic aneurysm (TAA) (CMS/HCC) Chronic kidney disease, stage 2 (mild) Chronic kidney disease CKD (chronic kidney disease) stage 3, GFR 30-59 ml/min (CMS/HCC) Coronary artery calcification seen on CT scan Coronary artery disease Depressive disorder Generalized anxiety disorder Atherosclerotic cardiovascular disease Hypertension PAD (peripheral artery disease) (CMS/HCC) Peripheral vascular disease (CMS/HCC) Pseudoaneurysm (CMS/HCC) Hyperlipidemia Pure hypercholesterolemia Renal malignant neoplasm (CMS/HCC) No Known Allergies Review of Systems Constitutional: Negative for activity change, appetite change, chills and diaphoresis. HENT: Positive for tinnitus. Respiratory: Negative for cough and choking. Genitourinary: Positive for dysuria. Musculoskeletal: Positive for back pain. Psychiatric/Behavioral: Negative for behavioral problems and confusion. Objective BP (!) 140/69 (BP Location: Left arm, Patient Position: Sitting, BP Cuff Size: Large adult) Pulse62 Temp 97.7 ??F (36.5 ??C) (Oral) Resp 14 Ht 6' (1.829 m) Wt 245 lb (111 kg) SpO2 96% BMI 33.23 kg/m?? Physical Exam Constitutional: General: He is not in acute distress. Appearance: Normal appearance. He is not ill-appearing, toxic-appearing or diaphoretic. Cardiovascular: Rate and Rhythm: Rhythm irregular. Pulmonary: Effort: Pulmonary effort is normal. Abdominal: Palpations: Abdomen is soft. Musculoskeletal: Comments: Tenderness to palpation of the SI joints bilaterally. No redness/swelling/rash at inspection Neurological: General: No focal deficit present. Mental Status: He is alert. Psychiatric: Mood and Affect: Mood normal. Assessment/Plan Diagnoses and all orders for this visit: Kidney stone Comments: Advised to remain well-hydrated avoid NSAIDs Tylenol as needed Primary hypertension Comments: Acceptable No change in medication Low back pain at multiple sites Comments: Possible sacroiliitis Ortho referral to consider an SI joint steroid injection Orders: - Referral to Orthopaedic Surgery; Future Tinnitus of right ear - Referral to ENT; Future Lower urinary tract symptoms Comments: Advised to follow-up with his urologist documented in this encounter Plan of Treatment Upcoming Encounters Date Type Department Care Team (Late st Contact Info) Description 09/11/2024 10:30 AM EDT Office Visit [facility] [address] [place] [address] Sesar Pereyra MD [address] [place] [address] Scheduled Referrals Name Type Priority Associated Diagnoses Order Schedule Referral to ENT Outpatient Referral Routine Tinnitus of right ear Expected: 06/13/2024 (Approximate), Expires: 06/13/2025 Referral to Orthopaedic Surgery Outpatient Referral Routine Low back pain at multiple sites Expected: 06/13/2024 (Approximate), Expires: 06/13/2025 documented as of this encounter Visit Diagnoses Diagnosis Kidney stone- Primary Calculus of kidney Primary hypertension Unspecified essential hypertension Low back pain at multiple sites Tinnitus of right ear Lower urinary tract symptoms Other symptoms involving urinary system documented in this encounter Additional Health Concerns Assessment Noted Time PHQ-9 Depression Total Score: 16 024 10:59 AM EDT documented as of this encounter Care Teams Staff Nurse Midwife Relationship Specialty Start Date End Date Sesar Pereyra MD [address] [place] [address] PCP - General Internal Medicine 03/01/21 [facility] 03/22/24 documented as of this encounter
--- OUTSIDE RECORDS SUMMARY | 2024-06-19 15:04 | XMS_ITS | Encounter Summary ---
Author Organization [facility] Address [address] [place] [address] Care Team Providers Care Threader Operator Name Role Phone Ghassan Burciaga MD Primary Care Provider Unavail able Pierre Arevalo MD Primary Care Provider Judy vailable Gerson Dawson MD Primary Care Provider Unavail able [facility], Pcp Primary Care Provider Unavailabl e Coleman Mccarthy MD Primary Care Provider Unavaila Ayo Demarco MD Primary Care Provider [phone] Annalee Jones MD Primary Care Provider Un available Pascual Nicholasabela DO Primary Care Pro vider Unavailable Anuj Priest DO Primary Care Provider Judy vailable [facility], Pcp Primary Care Provider Unavailabl e Encounter Details Date Type Department Care Team Description 04/30/2007 Hospital Medical Records [address] [place] [address] Anuj Easton Jr[address] [facility] [address] [place], [place] [id number] Social History Tobacco Use Types Packs/Day Years [...] on filedocumented in this encounter Care Teams Threader Operator Relationship Specialty Start Date End Date Ghassan Burciaga MD PCP - General 07/24/00 05/06/13 Pierre Arevalo MD PCP - General Internal Medicine 05/07/13 4 Gerson Dawson MD PCP - General Internal Medicine 01/30/14 03/20/14 [facility], Pcp PCP - General Internal Medicine 03/21/14 05/06/14 Coleman Mccarthy MD PCP - General Internal Medicine 05/07/14 07/18/16 Ayo Carpio MD [address] [place] [address] PCP - General Internal Medicine 07/19/16 01/05/17 Annalee Jones MD [address] [place] [address] PCP - General Internal Medicine 01/06/17 12/02/18 Yolande Nicholas, DO [address] [place] [address] PCP - General Internal Medicine 12/03/18 10/08/20 Anuj Priest, DO [address] [place] [address] PCP - General Internal Medicine 10/09/20 06/16/21 [facility], Pcp PCP - General Internal Medicine 06/17/21 documented as of this encounter
--- OUTSIDE RECORDS SUMMARY | 2024-06-19 15:04 | XMS_ITS | Encounter Summary ---
Author Organization [facility] Address [address] [place] [address] Care Team Providers Care Floor Inspector Name Role Phone Pierre Mccarthy MD Primary Care Provider Judy vailable Gerson Dawson MD Primary Care Provider Unavail able [facility], Pcp Primary Care Provider Unavailabl e Coleman Mccarthy MD Primary Care Provider Unavaila Ayo Demarco MD Primary Care Provider [phone] Annalee Jones MD Primary Care Provider Un available Yolande Nicholas DO Primary Care Pro vider Unavailable Anuj Priest DO Primary Care Provider Judy vailable [facility], Pcp Primary Care Provider Unavailabl e Reason for Visit * Reason Onset Date Comments Eye Injury 01/06/2014 Encounter Details Date Type Department Care Team Description 01/06/2014 Telephone Adult [address] [address] Pierre Mccarthy MD Eye Injury Social History [...] ER. He agrees and will go to [facility]. He requested that we call [facility] and let them know that he was coming. Spoke with Dora at [facility] and told her that patientwas coming. * Telephone Encounter - Doar Del Castillo - 01/06/2014 2:39 PM EDT [...] symptoms?: 1 day PCP: Pierre Mccarthy Payor: MEDICARE-[place] / Plan: MEDICARE-[place] / Product Type: MEDICARE [id number] documented in this encounter Plan of Treatment Not on file documented as of this encounter Visit Diagnoses Not on filedocumented in this encounter Care Teams Floor Inspector Relationship Specialty Start Date End Date Pierre Mccarthy MD PCP - General Internal Medicine 05/07/13 4 Gerson Dawson MD PCP - General Internal Medicine 01/30/14 03/20/14 [facility], Pcp PCP - General Internal Medicine 03/21/14 05/06/14 Coleman Mccarthy MD PCP - General Internal Medicine 05/07/14 07/18/16 Ayo Carpio MD [address] [place] [address] PCP - General Internal Medicine 07/19/16 01/05/17 Annalee Jones MD [address] [place], [place] [id number] PCP - General Internal Medicine 01/06/17 12/02/18 Yolande Nicholas, [address] [place], [place] [id number] PCP - General Internal Medicine 12/03/18 10/08/20 Anuj Priest DO [address] [place] [address] PCP - General Internal Medicine 10/09/20 06/16/21 [facility], Pcp PCP - General Internal Medicine 06/17/21 documented as of this encounter
--- OUTSIDE RECORDS SUMMARY | 2024-06-19 15:04 | XMS_ITS | Encounter Summary ---
Author Organization [facility] Address [address] [place] [address] Care Team Providers Care Blender Name Role Phone Yolande Nicholas DO Primary Care Pro vider Unavailable Anuj Priest DO Primary Care Provider [facility], Pcp Primary Care Provider Unavailabl e Reason for Visit * Reason Onset Date Comments Faxed Order 02/21/2020 Encounter Details Date Type Department Care Team Description 02/21/2020 Telephone Adult [address] [address] Yolande Nicholas DO Faxed Order Social History [...] * Telephone Encounter - Susan Calderon - 02/21/2020 11:06 AM EDT Physician orders for Dr. Yolande Humphreycco's signature documented in this encounter Plan of Treatment Not on file documented as of this encounter Visit Diagnoses Not on filedocumented in this encounter Care Teams Blender Relationship Specialty Start Date End Date Yolande Nicholas DO PCP - General Internal Medicine 12/03/18 10/08/20 Anuj Priest DO PCP - General Internal Medicine 10/09/[address] [place] [address], Pcp PCP - General Internal Medicine 06/17/21 documented as of this encounter
--- OUTSIDE RECORDS SUMMARY | 2024-06-19 15:04 | XMS_ITS | Encounter Summary ---
Author Organization [facility] Address [address] [place] [address] Care Team Providers Care Bulk Plant Supervisor Name Role Phone Yolande Nicholas DO Primary Care Pro vider Unavailable Anuj Priest DO Primary Care Provider Judy Gardner, Pcp Primary Care Provider Unavailabl e Encounter Details Date Type Department Care Team Description 10/23/2019 Release of Information Medical Records [address] [place] [id number] Abstract, Provider Social History Tobacco Use Types [...] on filedocumented in this encounter Care Teams Bulk Plant Supervisor Relationship Specialty Start Date End Date Yolande Nicholas DO PCP - General Internal Medicine 12/03/18 10/08/20 Anuj Priest DO PCP - General Internal Medicine 10/09/20 2 Jj, Pcp PCP - General Internal Medicine 06/17/21 documented as of this encounter
--- OUTSIDE RECORDS SUMMARY | 2024-06-19 15:04 | XMS_ITS | Encounter Summary ---
Author [facility] Address [address] [place] [address] Care Team Providers Care Journeyman Pipe Fitter Name Role Phone Yolande Nicholas DO Primary Care Pro vider Unavailable Anuj Priest DO Primary Care Provider [facility], Pcp Primary Care Provider Unavailabl e Reason for Visit * Reason Comments E-prescribe Rx Request Encounter Details Date Type Department Care Team Description 01/01/2020 Refill Adult Medicine [address] [address] Alana Stinson MD [address] [place] [phone] E-prescribe Rx Request Social History Tobacco [...] on filedocumented in this encounter Care Teams Journeyman Pipe Fitter Relationship Specialty Start Date End Date Yolande Nicholas DO PCP - General Internal Medicine 12/03/18 10/08/20 Anuj Priest DO PCP - General Internal Medicine 10/09/20 2 [facility], Pcp PCP - General Internal Medicine 06/17/21 documented as of this encounter
--- OUTSIDE RECORDS SUMMARY | 2024-06-19 15:04 | XMS_ITS | Encounter Summary ---
Author Organization [facility] Address [address] [place] [address] Care Team Providers Care Solid Waste Manager Name Role Phone Yolande Nicholas DO Primary Care Pro vider Unavailable Anuj Priest DO Primary Care Provider [facility], Pcp Primary Care Provider Unavailabl e Reason for Visit * Reason Onset Date Comments VNA Call 01/28/2020 Encounter Details Date Type Department Care Team Description 01/28/2020 Telephone Adult [address] [address] Yolande Nicholas DO VNA Call Social History [...] Telephone Encounter - Minerva Kan R.N. - 01/28/2020 8:57 AM EDT [phone] (home) Pt is being seen by surgeons for wound, was seen last week, wound packed and has a f/u tomorrow with gabe strickland, he will be admitted for additional surgery on 02/06, having covid test of 105 and willquarantine between 02/02 and admission * Telephone Encounter - Bushra Workman - 01/28/2020 8:46 AM EDT VNA CALL Which VNA office is calling? Ngoc Full name of caller: Urszula The caller is A nurse Is the caller at the patients home?: NO Reason for call: Yesterday patient was seen for the first time for wound care. He has copious amount of drainage, smells foul. Seems like a new area has opened up. Urszula believes the patient shouldbe seen. Call patient for appt. Does caller need an urgent call back? YES Was CONTACT Telephone # obtained above?: YES Fax #: documented in this encounter Plan of Treatment Not on file documented as of this encounter Visit Diagnoses Not on filedocumented in this encounter Care Teams Solid Waste Manager Relationship Specialty Start Date End Date Yolande Nicholas DO PCP - General Internal Medicine 12/03/18 10/08/20 Anuj Priest DO PCP - General Internal Medicine 10/09/[address] [place] [address], Pcp PCP - General Internal Medicine 06/17/21 documented as of this encounter
--- OUTSIDE RECORDS SUMMARY | 2024-06-19 15:04 | XMS_ITS | Encounter Summary ---
Author Organization [facility] Address [address] [place] [address] Care Team Providers Care Civil Service Clerk Name Role Phone Yolande Nicholas DO Primary Care Pro vider Unavailable Anuj Priest DO Primary Care Provider [facility], Pcp Primary Care Provider Unavailabl e Encounter Details Date Type Department Care Team Description 09/04/2019 Telephone Internal Medicine - [address], [address] [place] [address] Alana Stinson MD [address] [place] [phone] Social History Tobacco Use Types Packs/Day [...] PM EDT Spoke to someone from [facility]hab they will send discharge notes. * Telephone Encounter - Alana Stinson MD - 09/04/2019 11:48 AM EDT PLS GET DISCHARGE SUMMARY FROM [facility] [place], documented in this encounter Plan of Treatment Not on file documented as of this encounter Visit Diagnoses Not on filedocumented in this encounter Care Teams Civil Service Clerk Relationship Specialty Start Date End Date Yolande Nicholas DO PCP - General Internal Medicine 12/03/18 10/08/20 Anuj Priest DO PCP - General Internal Medicine 10/09/20 2 [facility], Pcp PCP - General Internal Medicine 06/17/21 documented as of this encounter
--- OUTSIDE RECORDS SUMMARY | 2024-06-19 15:05 | XMS_ITS | Encounter Summary ---
Author Organization [facility] Address [address] [place] [address] Care Team Providers Care Red Hat Engineer Name Role Phone Coleman Mccarthy MD Primary Care Provider Unavaila ble Ayo Carpio MD Primary Care Provider [phone] Annalee Jones MD Primary Care Provider Un available Yolande Nicholas DO Primary Care Pro vider Unavailable Anuj Priest DO Primary Care Provider [facility], Pcp Primary Care Provider Unavailabl e Encounter Details Date Type Department Care Team Description 07/30/2014 BARRELHEAD INSPECTOR/[facility] Report Medical Records [address] [place] [id number] Abstract, Provider Social History Tobacco Use Types [...] on filedocumented in this encounter Care Teams Red Hat Engineer Relationship Specialty Start Date End Date Coleman Mccarthy MD PCP - General Internal Medicine 05/07/14 07/18/16 Ayo Carpio MD [address] [place] [id number] PCP - General Internal Medicine 07/19/16 01/05/17 Annalee Jones MD [address] [place] [address] PCP - General Internal Medicine 01/06/17 12/02/18 Yolande Nicholas, [address] [place] [address] PCP - General Internal Medicine 12/03/18 10/08/20 Anuj Priest DO [address] [place] [address] PCP - General Internal Medicine 10/09/20 06/16/21 [facility], Pcp [address] [place] [address] PCP - General Internal Medicine 06/17/21 documented as of this encounter
--- OUTSIDE RECORDS SUMMARY | 2024-06-19 15:05 | XMS_ITS | Encounter Summary ---
Author [facility] Address [address] [place] [address] Care Team Providers Care Epic Radiant Analyst Name Role Phone Annalee Jones MD Primary Care Provider Un available Yolande Nicholas DO Primary Care Pro vider Unavailable Anuj Priest DO Primary Care Provider Judy vailable [facility], Pcp Primary Care Provider Unavailabl e Encounter Details Date Type Department Care Team Description 08/24/2017 Release of Information Medical Records [address] [place] [id number] Abstract, Provider Social History Tobacco Use Types [...] on filedocumented in this encounter Care Teams Epic Radiant Analyst Relationship Specialty Start Date End Date Annalee Jones MD PCP - General Internal Medicine 01/06/17 9 Yolande Nicholas DO PCP - General Internal Medicine 12/03/18 10/08/20 Anuj Priest DO PCP - General Internal Medicine 10/09/20 2 Jj, Pcp PCP - General Internal Medicine 06/17/21 documented as of this encounter
--- OUTSIDE RECORDS SUMMARY | 2024-06-19 15:05 | XMS_ITS | Encounter Summary ---
Author Organization [employer] Address [address] [facility] 7t [place] [address] Care Team Providers Care Chicken Hanger Name Role Phone Sesar Pereyra MD Primary Care Provider [phone] Encounter Details Date Type Department Care Team (Late st Contact Info) Description 04/02/2024 Orders Only [facility] [address] [place] [address] Provider, MD Jazmyn Social History Tobacco Use [...] Description 09/11/2024 10:30 AM EDT Office Visit [facility]S [address] [place] [address] Sesar Pereyra MD [address] [place] [address] documented as of this encounter Procedures Procedure [...] documented as of this encounter Care Teams Chicken Hanger Relationship Specialty Start Date End Date Sesar Pereyra MD [address] [place] [address] PCP - General Internal Medicine [facility] [address] 03/22/24 documented as of this encounter
--- OUTSIDE RECORDS SUMMARY | 2024-06-19 15:05 | XMS_ITS | Encounter Summary ---
Author Organization [facility] Address [address] [place] [address] Care Team Providers Care Sheet Taker Name Role Phone Yolande Nicholas DO Primary Care Pro vider Unavailable Anuj Priest DO Primary Care Provider [facility], Pcp Primary Care Provider Unavailabl e Reason for Visit * Reason Onset Date Comments Mychart Rx Refill 02/15/2019 Encounter Details Date Type Department Care Team Description 02/15/2019 Refill Adult Medicine [facility] [address] [place] [address] [facility] [address] [place] [address] Mychart Rx Refill Social History Tobacco Use [...] 20 MG tablet [MELITON Lombardo] Preferred pharmacy: [facility] # [id number] [place] AT Comment: Need to have a refill documented in this encounter Plan of Treatment Not on file documented as of this encounter Visit Diagnoses Not on filedocumented in this encounter Care Teams Sheet Taker Relationship Specialty Start Date End Date oYlande Nicholas DO PCP - General Internal Medicine 12/03/18 10/08/20 Anuj Priest DO PCP - General Internal Medicine 10/09/20 2 [facility], Pcp PCP - General Internal Medicine 06/17/21 documented as of this encounter
--- OUTSIDE RECORDS SUMMARY | 2024-06-19 15:05 | XMS_ITS | Clinical Summary ---
Author Organization Unknown Care Team Providers Care Netbackup Administrator Name Role Phone MARCO RAMIREZ, POOJA Unavailable Unavailabl e JIMENEZ PT, COURTNEY Unavailable Unavailable SPAFFORD OT, DAGO Unavailable Unavailable CONDINO FERNY/CALZADA, ANGUS Unavailable Unav ailable FECTEAU CLOTH SHRINKER, JANETT Unavailable Unavailable LESLYE RN, DAGOBERTO Unavailable Unavailab abraham CARRION HOTBED OPERATOR, ANTONIO Unavailable Unavailable JOSE RAFAEL SKAGGSN, YORDAN Unavailable Unavail able Payers Payer Name Policy Type Policy Number Effective Date Expira tion Date [facility] [id number] Problems Condition Name Condition Details Condition Category [...] 2023-05 00:00: 00 ATHSCL HEART DISEASE OF [place] CORONARY ARTERY W/O ANG PCTRS Active 05-01 [...] HISTORY OF COVID-19 Active 2023-05 00:00: 00 USP (CURRENT) USE OF ANTICOAGULAN TS Active 2023-05 [...] 2023-05 00:00: 00 05-16 23:59 :00 No [id number] PAIN 15 mg EVERY 6 HOURS NEEDED 15 mg EVERY 6 HOURS NEEDED (route: oral) Med Classific ation: Analgesic , Anti-infl ammatory or Antipyret ic clonazepam 0.5 mg tablet 2023-05 00:00: 00 Yes [id number] ANXIETY 0.5 mg 2 TIMES DAILY 0.5 mg 2 TIMES DAILY (route: oral) Med Classific ation: Central Nervous System Agents lisinopril 40 mg tablet 2023-05 00:00: 00 03-21 23:59 :00 No [id number] CAD 40 mg DAILY 40 mg DAILY (route: oral) Med Classific ation: Cardiovas cular Therapy Agents atorvastati n 80 mg tablet 2023-05 00:00: 00 Yes [id number] HYPERTENSIO N 80 mg DAILY 80 mg DAILY (route: oral) Med Classific ation: Cardiovas cular Therapy Agents cilostazol 50 mg tablet 2023-05 00:00: 00 Yes [id number] HYPERTENSIO N 50 mg 2 TIMES DAILY 50 mg 2 TIMES DAILY (route: oral) Med Classific ation: Hematolog ical Agents clopidogrel 75 mg tablet 2023-05 00:00: 00 03-21 23:59 :00 No [id number] CORONARY ARTERY DISEASE 75 mg DAILY 75 mg DAILY (route: oral) Med Classific ation: Hematolog ical Agents Eliquis 5 mg tablet 2023-05 00:00: 00 Yes [id number] ANTI ARRHYTHMIC 5 mg 2 TIMES DAILY 5 mg 2 TIMES DAILY (route: oral) Med Classific ation: Hematolog ical Agents furosemide 40 mg tablet 2023-05 00:00: 00 03-21 23:59 :00 No [id number] BPH 40 mg DAILY 40 mg DAILY (route: oral) Alternate Route: INTRA-MUS CULAR. Med Classific ation: Cardiovas cular Therapy Agents metoprolol tartrate 50 mg tablet 2023-05 00:00: 00 03-22 23:59 :00 No [id number] CAD 50 mg DAILY 50 mg DAILY (route: oral) Med Classific ation: Cardiovas cular Therapy Agents quetiapine 25 mg tablet 2023-05 00:00: 00 Yes [id number] MOOD STABILIZER 25 mg 2 TIMES DAILY 25 mg 2 TIMES DAILY (route: oral) Med Classific ation: Central Nervous System Agents sertraline 50 mg tablet 2023-05 00:00: 00 Yes [id number] MOOD STABILIZER 50 mg DAILY 50 mg DAILY (route: oral) Med Classific ation: Central Nervous System Agents tamsulosin 0.4 mg capsule 2023-05 00:00: 00 Yes [id number] BPH 0.4 mg DAILY 0.4 mg DAILY (route: oral) Med Classific ation: Genitouri nary Therapy docusate sodium 100 mg tablet 2023-05 00:00: 00 Yes [id number] CONSTIPATIO N 100 mg DAILY 100 mg DAILY (route: oral) Med Classific ation: Gastroint estinal Therapy Agents gabapentin 100 mg capsule 2023-05 00:00: 00 Yes [id number] PAIN 1-3 capsule BEDTIME 1-3 capsule BEDTIME (route: oral) Med Classific ation: Central Nervous System Agents metoprolol tartrate 25 mg tablet 2023-05 00:00: 00 03-27 16:09 :43.1 53 No [id number] HYPERTENSIO N 25 mg 2 TIMES DAILY 25 mg 2 TIMES DAILY (route: oral) Med Classific ation: Cardiovas cular Therapy Agents Multaq 400 mg tablet 2023-05 00:00: 00 Yes [id number] ANTIARRHYTH MICHAEL 400 mg 2 TIMES DAILY 400 mg 2 TIMES DAILY (route: oral) Med Classific ation: Cardiovas cular Therapy Agents furosemide 40 mg tablet 2023-05 00:00: 00 Yes [id number] edema 1 tablet DAILY 1 tablet DAILY (route: oral) Med Classific ation: Cardiovas cular Therapy Agents dextroamphe tamine-amph etamine 7.5 mg tablet 2023-05 00:00: 00 Yes [id number] attention 1 tablet DAILY 1 tablet DAILY (route: oral) Med Classific ation: Central Nervous System Agents metoprolol tartrate 25 mg tablet 2023-05 00:00: 00 Yes [id number] heart rate 0.5 tablet 2 TIMES DAILY 0.5 tablet 2 TIMES DAILY (route: oral) Med Classific ation: Cardiovas cular Therapy Agents cephalexin 500 mg capsule 2023-05 00:00: 00 04-10 23:59 :00 No [id number] CELLULITIS LLL 500 mg 4 TIMES DAILY 500 mg 4 TIMES DAILY (route: oral) Med Classific ation: Anti-Infe ctive Agents hydralazine 25 mg tablet 2023-05 00:00: 00 Yes [id number] HTN 25 mg 2 TIMES DAILY 25 [...] CONSULTING PHYSICIANS. RN TO OBSERVE AND ASSESS, AGRICULTURAL RESEARCH ENGINEER/GAS TURBINE POWERPLANT MECHANIC TO OBSERVE FOR RISK FOR FALLS AND INSTRUCT IN FALL PREVENTION, HOME SAFETY, MEDICATION MANAGEMENT, INFECTION PREVENTION, AND NUTRITION MANAGEMENT. RN/AGRICULTURAL RESEARCH ENGINEER/GAS TURBINE POWERPLANT MECHANIC NURSE MAY PERFORM O2 SATURATION LEVEL ON ADMISSION AND PRN FOR RN TO ASSESS/AGRICULTURAL RESEARCH ENGINEER TO OBSERVE PATIENT, WITH NOTIFICATION TO THE PHYSICIAN IF SATURATION IS 90% IN THE ABSENCE OF MORE SPECIFIC PARAMETERS FROM THE PHYSICIAN. AGENCY MAY PERFORM A RESUMPTION OF CARE VISIT FOLLOWING ANY HOSPITAL ADMISSION. RN/AGRICULTURAL RESEARCH ENGINEER/GAS TURBINE POWERPLANT MECHANIC TO MONITOR CO-MORBID CONDITIONS LISTED ON THE PLAN OF CARE AND ANY NEW CONDITIONS THAT PRESENT THEMSELVES DURING THIS EPISODE TO IDENTIFY CHANGES AND INTERVENE TO MINIMIZE COMPLICATIONS. [code = RN TO OBSERVE, ASSESS, EVALUATE, AND DEVELOP AN INDIVIDUALIZED PLAN OF CARE. AGENCY MAY ACCEPT ORDERS FROM CONSULTING PHYSICIANS. RN TO OBSERVE AND ASSESS, AGRICULTURAL RESEARCH ENGINEER/GAS TURBINE POWERPLANT MECHANIC TO OBSERVE FOR RISK FOR FALLS AND INSTRUCT IN FALL PREVENTION, HOME SAFETY, MEDICATION MANAGEMENT, INFECTION PREVENTION, AND NUTRITION MANAGEMENT. RN/AGRICULTURAL RESEARCH ENGINEER/GAS TURBINE POWERPLANT MECHANIC NURSE MAY PERFORM O2 SATURATION LEVEL ON ADMISSION AND PRN FOR RN TO ASSESS/AGRICULTURAL RESEARCH ENGINEER TO OBSERVE PATIENT, WITH NOTIFICATION TO THE PHYSICIAN IF SATURATION IS 90% IN THE ABSENCE OF MORE SPECIFIC PARAMETERS FROM THE PHYSICIAN. AGENCY MAY PERFORM A RESUMPTION OF CARE VISIT FOLLOWING ANY HOSPITAL ADMISSION. RN/AGRICULTURAL RESEARCH ENGINEER/GAS TURBINE POWERPLANT MECHANIC TO MONITOR CO-MORBID CONDITIONS LISTED ON THE PLAN OF CARE AND ANY NEW CONDITIONS THAT PRESENT THEMSELVES DURING THIS EPISODE TO IDENTIFY CHANGES AND INTERVENE TO MINIMIZE COMPLICATIONS.] Future Scheduled Test MEDICATION MANAGEMENT; RN/AGRICULTURAL RESEARCH ENGINEER/GAS TURBINE POWERPLANT MECHANIC TO REVIEW MEDICATIONS FOR INTERACTIONS, EFFECTIVENESS OF DRUG THERAPY, AND SIGNS/SYMPTOMS OF ADVERSE REACTIONS. MAY INSTRUCT AND REINFORCE MEDICATION TEACHING RELATED TO THE USE OF MEDICATIONS, DOSAGE, FREQUENCY, PURPOSE, SIDE EFFECTS, AND TO REPORT COMPLICATIONS. HELP SET UP BUBBLE PACKS [code = MEDICATION MANAGEMENT; RN/AGRICULTURAL RESEARCH ENGINEER/GAS TURBINE POWERPLANT MECHANIC TO REVIEW MEDICATIONS FOR INTERACTIONS, EFFECTIVENESS OF DRUG THERAPY, AND SIGNS/SYMPTOMS OF ADVERSE REACTIONS. MAY INSTRUCT AND REINFORCE MEDICATION TEACHING RELATED TO THE USE OF MEDICATIONS, DOSAGE, FREQUENCY, PURPOSE, SIDE EFFECTS, AND TO REPORT COMPLICATIONS. HELP SET UP BUBBLE PACKS] Future Scheduled Test RISK FOR H OSPITALIZATION; RN TO ASSESS/TEACH, GAS TURBINE POWERPLANT MECHANIC/AGRICULTURAL RESEARCH ENGINEER TO OBSERVE/TEACH PATIENT/CAREGIVER ON RISK FOR HOSPITALIZATION/EMERGENCY ROOM VISITS, TEACH SIGNS AND SYMPTOMS THAT PUT PATIENT AT RISK, WHEN TO NOTIFY NURSE/PHYSICIAN OF COMPLICATIONS/DECLINE, AND WHEN TO CALL 911. [code = RISK FOR HOSPITALIZATION; RN TO ASSESS/TEACH, GAS TURBINE POWERPLANT MECHANIC/AGRICULTURAL RESEARCH ENGINEER TO OBSERVE/TEACH PATIENT/CAREGIVER ON RISK FOR HOSPITALIZATION/EMERGENCY ROOM VISITS, TEACH SIGNS AND SYMPTOMS THAT PUT PATIENT AT RISK, WHEN TO NOTIFY NURSE/PHYSICIAN OF COMPLICATIONS/DECLINE, AND WHEN TO CALL 911.] Future Scheduled Test CARDIOVASC ULAR SYSTEM; RN TO ASSESS/TEACH, AGRICULTURAL RESEARCH ENGINEER/GAS TURBINE POWERPLANT MECHANIC TO OBSERVE/TEACH RELATED TO ALTERED CARDIOVASCULAR STATUS TO MINIMIZE COMPLICATIONS AND REDUCE HOSPITALIZATION. [code = CARDIOVASCULAR SYSTEM; RN TO ASSESS/TEACH, AGRICULTURAL RESEARCH ENGINEER/GAS TURBINE POWERPLANT MECHANIC TO OBSERVE/TEACH RELATED TO ALTERED CARDIOVASCULAR STATUS TO MINIMIZE COMPLICATIONS AND REDUCE HOSPITALIZATION.] Future Scheduled Test HYPERTENSI ON MANAGEMENT; RN TO ASSESS AND TEACH, AGRICULTURAL RESEARCH ENGINEER/GAS TURBINE POWERPLANT MECHANIC TO OBSERVE AND TEACH WARNING SIGNS AND SYMPTOMS TO AVOID HOSPITALIZATION. [code = HYPERTENSION MANAGEMENT; RN TO ASSESS AND TEACH, AGRICULTURAL RESEARCH ENGINEER/GAS TURBINE POWERPLANT MECHANIC TO OBSERVE AND TEACH WARNING SIGNS AND SYMPTOMS TO AVOID HOSPITALIZATION.] Future Scheduled Test ARRHYTHMIA MANAGEMENT; RN TO ASSESS AND TEACH, AGRICULTURAL RESEARCH ENGINEER/GAS TURBINE POWERPLANT MECHANIC TO OBSERVE AND TEACH WARNING SIGNS AND SYMPTOMS TO AVOID HOSPITALIZATION. [code = ARRHYTHMIA MANAGEMENT; RN TO ASSESS AND TEACH, AGRICULTURAL RESEARCH ENGINEER/GAS TURBINE POWERPLANT MECHANIC TO OBSERVE AND TEACH WARNING SIGNS AND SYMPTOMS TO AVOID HOSPITALIZATION.] Future Scheduled Test SKIN INTEG RITY RN TO ASSESS AND TEACH, AGRICULTURAL RESEARCH ENGINEER/GAS TURBINE POWERPLANT MECHANIC TO OBSERVE AND TEACH INTEGUMENTARY STATUS TO IDENTIFY CHANGES AND INTERVENE TO MINIMIZE COMPLICATIONS. PROVIDE SKILLED TEACHING OF GENERAL WOUND AND SKIN CARE AND PREVENTION RELATED TO POTENTIAL FOR ALTERED SKIN INTEGRITY [code = SKIN INTEGRITY RN TO ASSESS AND TEACH, AGRICULTURAL RESEARCH ENGINEER/GAS TURBINE POWERPLANT MECHANIC TO OBSERVE AND TEACH INTEGUMENTARY STATUS TO IDENTIFY CHANGES AND INTERVENE TO MINIMIZE COMPLICATIONS. PROVIDE SKILLED TEACHING OF GENERAL WOUND AND SKIN CARE AND PREVENTION RELATED TO POTENTIAL FOR ALTERED SKIN INTEGRITY ] Future Scheduled Test PAIN MANAG EMENT; RN TO ASSESS AND TEACH, GAS TURBINE POWERPLANT MECHANIC/AGRICULTURAL RESEARCH ENGINEER TO OBSERVE AND TEACH AND PROVIDE EDUCATION ON PAIN MANAGEMENT TECHNIQUES. [code = PAIN MANAGEMENT; RN TO ASSESS AND TEACH, GAS TURBINE POWERPLANT MECHANIC/AGRICULTURAL RESEARCH ENGINEER TO OBSERVE AND TEACH AND PROVIDE EDUCATION ON PAIN MANAGEMENT TECHNIQUES.] Future Scheduled Test FALL REDUC TION MANAGEMENT; RN TO ASSESS AND OBSERVE, AGRICULTURAL RESEARCH ENGINEER/GAS TURBINE POWERPLANT MECHANIC TO OBSERVE FALL RISK FACTORS AND EDUCATE PATIENT/CAREGIVER ON STRATEGIES TO MINIMIZE THE RISK OF FALLING. [code = FALL REDUCTION MANAGEMENT; RN TO ASSESS AND OBSERVE, AGRICULTURAL RESEARCH ENGINEER/GAS TURBINE POWERPLANT MECHANIC TO OBSERVE FALL RISK FACTORS AND EDUCATE PATIENT/CAREGIVER ON STRATEGIES TO MINIMIZE THE RISK OF FALLING.] Future Scheduled Test RESPIRATOR Y SYSTEM MANAGEMENT; RN TO ASSESS AND TEACH, AGRICULTURAL RESEARCH ENGINEER/GAS TURBINE POWERPLANT MECHANIC TO OBSERVE AND TEACH RELATED TO ALTERED RESPIRATORY STATUS TO MINIMIZE COMPLICATIONS AND REDUCE HOSPITALIZATION. [code = RESPIRATORY SYSTEM MANAGEMENT; RN TO ASSESS AND TEACH, AGRICULTURAL RESEARCH ENGINEER/GAS TURBINE POWERPLANT MECHANIC TO OBSERVE AND TEACH RELATED TO [...] End Date/Time Encounter Type Admission Type Attending [facility] Care Department Encounter ID Discharge Date Discharge Status Discharge Condition Discharge Reason Percent Goals Met 2024-03-22 00:00:00 2024-07-19 00:00:00 Outpatient JOSE MARIARTIFIC DAGOBERTO NEIL [facility] [id number]
--- OUTSIDE RECORDS SUMMARY | 2024-06-19 15:05 | XMS_ITS | Encounter Summary ---
Author Organization [employer] Address [address] [facility] 7[address] [place] [address] Care Team Providers Care Valve Repairer Name Role Phone Sesar Pereyra MD Primary Care Provider [phone]- [phone] Reason for Visit * Reason Onset Date Comments Med Refill 04/02/2024 Encounter Details Date Type Department Care Team ([facility] st Contact Info) Description 04/02/2024 Telephone [facility] [address] [place] [address] Sesar Pereyra MD [address] [place] [address] Med Refill Social History Tobacco Use Types [...] 9:39 AM EST Medication was sent to [id number] on 04/01/24 #30 with 11 refills. * Telephone Encounter - Miri Young - 04/02/2024 9:33 AM EST TC from pt requesting medication refill. Medications needing refill : metoprolol tartrate (Lopressor) 25 MG tablet To be sent to: [facility] # 50 documented in this encounter Plan of Treatment Upcoming Encounters Date Type Department Care Team (Late st Contact Info) Description 09/11/2024 10:30 AM EDT Office Visit [facility] MED & PEDS [address] [place] [address] Sesar Pereyra MD [address] [place] [address] documented as of this encounter Visit Diagnoses Not on filedocumented in this encounter Additional Health Concerns Assessment Noted Time PHQ-9 Depression Total Score: 16 024 10:59 AM EDT documented as of this encounter Care Teams Valve Repairer Relationship Specialty Start Date End Date Sesar Pereyra MD [address] [place] [id number] PCP - General Internal Medicine 03/01/21 [facility] 03/22/24 documented as of this encounter
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
--- OUTSIDE RECORDS SUMMARY | 2024-06-19 15:05 | XMS_ITS | Encounter Summary ---
Author Organization [facility] Address [address] [place] [address] Care Team Providers Care Asset Protection Professional Name Role Phone Annalee Jones MD Primary Care Provider Un available Yolande Nicholas DO Primary Care Pro vider Unavailable Anuj Priest DO Primary Care Provider Judy [facility], Pcp Primary Care Provider Unavailabl e Reason for Visit * Reason Onset Date Comments Faxed Order 11/22/2017 Encounter Details Date Type Department Care Team Description 11/22/2017 Telephone Adult [address] [address] Annalee Jones MD Faxed Order Social History Tobacco Use Types Packs/Day Years Used Date Smoking Tobacco: Former Cigarettes 1 35 Q uit: 07/26/2005 Smokeless Tobacco: Never Alcohol Use Standard Drinks/Week Comments No 0 (1 standard drink = 0.6 oz pur e alcohol) prior heavy stopped 3. Sex Assigned at Date Recorded Not on file documented as of this encounter Miscellaneous Notes * Telephone Encounter - Gerri Villarreal Fidel - 11/22/2017 3:57 PM EDT [employer] IS FAXING A PRE AUTH FOR sildenafil (VIAGRA) 100 MG tablet. PAPER WORK PUT IN DR COSMO MENDEZ. [facility] [place] TEL [phone] FAX documented in this encounter Plan of Treatment Not on file documented as of this encounter Visit Diagnoses Not on filedocumented in this encounter Care Teams Asset Protection Professional Relationship Specialty Start Date End Date Annalee Jones MD PCP - General Internal Medicine 01/06/17 9 Yolande Nicholas DO PCP - General Internal Medicine 12/03/18 10/08/20 Anuj Priest DO PCP - General Internal Medicine 10/09/20 2 [facility], Pcp PCP - General Internal Medicine 06/17/21 documented as of this encounter
--- OUTSIDE RECORDS SUMMARY | 2024-06-19 15:05 | XMS_ITS | Encounter Summary ---
Author Organization [facility] Address [address] [place] [address] Care Team Providers Care Coil Repair Technician Name Role Phone Yolande Nicholas DO Primary Care Pro vider Unavailable Anuj Priest DO Primary Care Provider [facility], Pcp Primary Care Provider Unavailabl e Reason for Visit * Reason Onset Date Comments Faxed Order 08/25/2020 Encounter Details Date Type Department Care Team Description 08/25/2020 Telephone Adult [address] [address] Yolande Nicholas DO Faxed Order Social History [...] TO BE SIGN AND FAX BACK TO [phone]. documented in this encounter Plan of Treatment Not on file documented as of this encounter Visit Diagnoses Not on filedocumented in this encounter Care Teams Coil Repair Technician Relationship Specialty Start Date End Date Yolande Nicholas DO PCP - General Internal Medicine 12/03/18 10/08/20 Anuj Priest DO PCP - General Internal Medicine 10/09/20 2 [facility], Pcp PCP - General Internal Medicine 06/17/21 documented as of this encounter
--- OUTSIDE RECORDS SUMMARY | 2024-06-19 15:05 | XMS_ITS | Encounter Summary ---
Author Organization [facility] Address [address] [place] [address] Care Team Providers Care Poly Operator Name Role Phone Annalee Jones MD Primary Care Provider Un available Yolande Nicholas DO Primary Care Pro vider Unavailable Anuj Priest DO Primary Care Provider Judy vailable [facility], Pcp Primary Care Provider Unavailabl e Encounter Details Date Type Department Care Team Description 02/07/2017 Information Assurance Manager Report Medical Records [address] [place] [id number] Dhruv Garcia MD Social History Tobacco Use [...] on filedocumented in this encounter Care Teams Poly Operator Relationship Specialty Start Date End Date Annalee Jones MD PCP - General Internal Medicine 01/06/17 9 Yolande Nicholas DO PCP - General Internal Medicine 12/03/18 10/08/20 Anuj Priest DO PCP - General Internal Medicine 10/09/20 2 [facility], Pcp PCP - General Internal Medicine 06/17/21 documented as of this encounter
--- OUTSIDE RECORDS SUMMARY | 2024-06-19 15:05 | XMS_ITS | Encounter Summary ---
Author Organization [employer] Address [address] [facility] [address] [place] [address] Care Team Providers Care Medical Radiation Tech Name Role Phone Sesar Pereyra MD Primary Care Provider [phone]- [phone] Reason for Visit * Reason Comments Med Refill Encounter Details Date Type Department Care Team ([facility] st Contact Info) Description 10/30/2023 Refill [facility] [address] [place], [place] [phone] Sesar Pereyra MD [address] [place] [address] PVD (peripheral vascular disease) (CMS/HCC); Longstanding persistent [...] ([facility] st Contact Info) Description 09/11/2024 10:30 AM EDT Office Visit [facility] [address] [place] [address] Sesar Pereyra MD [address] [place] [address] documented as of this encounter Visit Diagnoses Diagnosis PVD (peripheral vascular disease) (CMS/HCC) Unspecified peripheral vascular disease Longstanding persistent atrial fibrillation (CMS/HCC) documented in this encounter Additional Health Concerns Assessment Noted Time PHQ-9 Depression Total Score: 16 024 10:59 AM EDT documented as of this encounter Care Teams Medical Radiation Tech Relationship Specialty Start Date End Date Sesar Pereyra MD [address] [place] [address] PCP - General Internal Medicine [facility] documented as of this encounter
--- OUTSIDE RECORDS SUMMARY | 2024-06-19 15:05 | XMS_ITS | Encounter Summary ---
Author Organization [facility] Address [address] [place] [address] Care Team Providers Care Building Wrecker Name Role Phone Ayo Carpio MD Primary Care Provider [phone] Annalee Jones MD Primary Care Provider Un available Yolande Nicholas DO Primary Care Pro vider Unavailable Anuj Priest DO Primary Care Provider Judy [facility], Pcp Primary Care Provider Unavailabl e Encounter Details Date Type Department Care Team Description 11/28/2016 SCAN Medical Records [address] [place] [address] Abstract, Provider Social History Tobacco Use Types [...] on filedocumented in this encounter Care Teams Building Wrecker Relationship Specialty Start Date End Date Ayo Carpio MD [address] [place] [address] [id number] PCP - General Internal Medicine 07/19/16 01/05/17 Annalee Jones MD [address] [place] [address] PCP - General Internal Medicine 01/06/17 12/02/18 Yolande Nicholas, [address] [place] [address] PCP - General Internal Medicine 12/03/18 10/08/20 Anuj Priest DO [address] [place] [address] PCP - General Internal Medicine 10/09/20 06/16/21 [facility], Pcp [address] [place], [place] [id number] PCP - General Internal Medicine 06/17/21 documented as of this encounter
--- OUTSIDE RECORDS SUMMARY | 2024-06-19 15:05 | XMS_ITS | Encounter Summary ---
Author [facility] Address [address] [place] [address] Care Team Providers Care Branch Sales And Service Representative Name Role Phone Annalee Jones MD Primary Care Provider Un available Yolande Nicholas DO Primary Care Pro vider Unavailable Anuj Priest DO Primary Care Provider Judy vailable [facility], Pcp Primary Care Provider Unavailabl e Encounter Details Date Type Department Care Team Description 09/04/2018 Release of Information Medical Records [address] [place] [id number] Abstract, Provider Social History Tobacco Use Types [...] on filedocumented in this encounter Care Teams Branch Sales And Service Representative Relationship Specialty Start Date End Date Annalee Jones MD PCP - General Internal Medicine 01/06/17 9 Yolande Nicholas DO PCP - General Internal Medicine 12/03/18 10/08/20 Anuj Priest DO PCP - General Internal Medicine 10/09/20 2 J[facility], Pcp PCP - General Internal Medicine 06/17/21 documented as of this encounter
--- OUTSIDE RECORDS SUMMARY | 2024-06-19 15:05 | XMS_ITS | Encounter Summary ---
Author Organization [facility] Address [address] [place] [address] Care Team Providers Care Fast Food Shift Lead Name Role Phone Ghassan Burciaga MD Primary Care Provider Unavail able Pierre Arevalo MD Primary Care Provider Judy vailable Gerson Dawson MD Primary Care Provider Unavail able [facility], Pcp Primary Care Provider Unavailabl e Coleman Mccarthy MD Primary Care Provider Unavaila Ayo Demarco MD Primary Care Provider [phone] Annalee Jones MD Primary Care Provider Un available Pascual Nicholasabela DO Primary Care Pro vider Unavailable Anuj Priest DO Primary Care Provider Judy [facility], Pcp Primary Care Provider Unavailabl e Encounter Details Date Type Department Care Team Description 01/27/2009 Hospital Medical Records [address] [place] [address] Baciilo Ward MD Social History Tobacco Use Types [...] on filedocumented in this encounter Care Teams Fast Food Shift Lead Relationship Specialty Start Date End Date Ghassan Burciaga MD PCP - General 07/24/00 05/06/13 Pierre Arevalo MD PCP - General Internal Medicine 05/07/13 4 Gerson Dawson MD PCP - General Internal Medicine 01/30/14 03/20/14 [facility], Pcp PCP - General Internal Medicine 03/21/14 05/06/14 Coleman Mccarthy MD PCP - General Internal Medicine 05/07/14 07/18/16 Ayo Carpio MD [address] [place], [place] [id number] PCP - General Internal Medicine 07/19/16 01/05/17 Annalee Jones MD [address] [place], [place] [id number] PCP - General Internal Medicine 01/06/17 12/02/18 Yolande Nicholas, DO [address] [place] [address] PCP - General Internal Medicine 12/03/18 10/08/20 Anuj Priest, [address] [place] [address] PCP - General Internal Medicine 10/09/20 06/16/21 [facility], Pcp PCP - General Internal Medicine 06/17/21 documented as of this encounter
--- OUTSIDE RECORDS SUMMARY | 2024-06-19 15:05 | XMS_ITS | Encounter Summary ---
Author Organization [facility] Address [address] [place] [address] Care Team Providers Care Director Of Restaurants Name Role Phone Annalee Jones MD Primary Care Provider Un available Yolande Nicholas DO Primary Care Pro vider Unavailable Anuj Priest DO Primary Care Provider Judy [facility], Pcp Primary Care Provider Unavailabl e Encounter Details Date Type Department Care Team Description 11/14/2017 Pt. Non Urgent Medic al Question Adult Medicine [address] [address] Annalee Jones MD Social History Tobacco Use [...] of sildenafil 20Mg 10 Qty. Sent to [facility] y [address] [facility] [place] [facility] [address] Tele [phone] documented in this encounter Plan of Treatment Not on file documented as of this encounter Visit Diagnoses Not on filedocumented in this encounter Care Teams Director Of Restaurants Relationship Specialty Start Date End Date Annalee Jones MD PCP - General Internal Medicine 01/06/17 9 Yolande Nicholas DO PCP - General Internal Medicine 12/03/18 10/08/20 Anuj Priest DO PCP - General Internal Medicine 10/09/20 2 [facility], Pcp PCP - General Internal Medicine 06/17/21 documented as of this encounter
--- OUTSIDE RECORDS SUMMARY | 2024-06-19 15:05 | XMS_ITS | Encounter Summary ---
Author Organization [employer] Address [address] [facility] 7t [place] [address] Care Team Providers Care Furnace Maintenance Name Role Phone Sesar Pereyra MD Primary Care Provider [phone] Reason for Visit * Reason Onset Date Comments Referral 01/02/2024 Encounter Details Date Type Department Care Team ([facility] st Contact Info) Description 01/02/2024 Telephone [facility] [address] [place] [address] Sesar Pereyra MD [address] [place] [address] Referral Social History Tobacco Use Types Packs/Day [...] - 01/02/2024 10:48 AM EDT Tc from [place] the patients EC requesting a referral for a gerontologist and would like to be sent to at [facility] [place] [facility] [place] documented in this encounter Plan of Treatment Upcoming Encounters Date Type Department Care Team (Late st Contact Info) Description 09/11/2024 10:30 AM EDT Office Visit [facility] [address] [place] [address] Sesar Pereyra MD [address] [place] [address] documented as of this encounter Visit Diagnoses Not on filedocumented in this encounter Additional Health Concerns Assessment Noted Time PHQ-9 Depression Total Score: 16 024 10:59 AM EDT documented as of this encounter Care Teams Furnace Maintenance Relationship Specialty Start Date End Date Sesar Pereyra MD [address] [place], [place] [address], [place] [address] PCP - General Internal Medicine 03/01/21 [facility] 03/22/24 documented as of this encounter
--- OUTSIDE RECORDS SUMMARY | 2024-06-19 15:05 | XMS_ITS | Encounter Summary ---
Author Organization [facility] [employer] [facility] Address [address] [place] [address] Care Team Providers Care Clinical Trial Coordinator Name Role Phone Ayo Carpio MD Primary Care Provider [phone] Annalee Jones MD Primary Care Provider Un available Yolande Nicholas DO Primary Care Pro vider Unavailable Anuj Priest DO Primary Care Provider Judy [facility], Pcp Primary Care Provider Unavailabl e Encounter Details Date Type Department Care Team Description 12/13/2016 Mud Tank Operator Report Medical Records [address] [place] [address] Dhruv Garcia MD Social History Tobacco Use [...] filedocumented in this encounter Care Teams Clinical Trial Coordinator Relationship Specialty Start Date End Date Ayo Carpio MD [address] [place] [address] PCP - General Internal Medicine 07/19/16 01/05/17 Annalee Jones MD [address] [place] [address] PCP - General Internal Medicine 01/06/17 12/02/18 Yolande Nicholas, DO [address] [place] [address] PCP - General Internal Medicine 12/03/18 10/08/20 Anuj Priest, [address] [place] [address] PCP - General Internal Medicine 10/09/20 06/16/21 [facility], [address] [address] PCP - General Internal Medicine 06/17/21 documented as of this encounter
--- OUTSIDE RECORDS SUMMARY | 2024-06-19 15:05 | XMS_ITS | Encounter Summary ---
Author Organization [employer] Address [address] [facility] 7t [place] [address] Care Team Providers Care Pump Installer Name Role Phone Sesar Pereyra MD Primary Care Provider [phone] Reason for Visit * Reason Onset Date Comments Med Refill 04/11/2024 Encounter Details Date Type Department Care Team (Late st Contact Info) Description 04/11/2024 Refill [facility] MEDICINE [address] [place] [address] Natasha Jiang MD [address] [place] [address] Closed nondisplaced fracture of acromial end of [...] Upcoming Encounters Date Type Department Care Team ([facility] st Contact Info) Description 09/11/2024 10:30 AM EDT Office Visit [facility] MED & PEDS [address] [place] [address] Sesar Pereyra MD [address] [place] [address] documented as of this encounter Visit Diagnoses Diagnosis Closed nondisplaced fracture of acromial end of right clavicle, initial encounter documented in this encounter Additional Health Concerns Assessment Noted Time PHQ-9 Depression Total Score: 16 024 10:59 AM EDT documented as of this encounter Care Teams Pump Installer Relationship Specialty Start Date End Date Sesar Pereyra MD [address] [place] [address] PCP - General Internal Medicine 03/01/21 [facility] 03/22/24 documented as of this encounter
--- OUTSIDE RECORDS SUMMARY | 2024-06-19 15:05 | XMS_ITS | Encounter Summary ---
Author Organization [facility] Address [address] [place] [address] Care Team Providers Care Mothercraft Nurse Name Role Phone Yolande Nicholas DO Primary Care Pro vider Unavailable Anuj Priest DO Primary Care Provider [facility], Pcp Primary Care Provider Unavailabl e Reason for Visit * Reason Onset Date Comments Mychart Rx Refill 06/27/2020 Encounter Details Date Type Department Care Team Description 06/27/2020 Refill Adult Medicine [address] [address] Yolande Nicholas DO Mychart Rx Refill Social [...] 3:54 PM EST Subject: Medication Renewal Request Alex Nettles would like a refill of the following medications: Other - The pharmist is waiting for these two scripts so he can fill the bubble packs [facility] the hold up Preferred pharmacy: [facility] [address] Medication renewals requested in this message routed separately: atorvastatin (LIPITOR) 80 MG tablet [Yolande Gomez DO] metoprolol (LOPRESSOR) 25 MG tablet [Yolande Gomez DO] documented in this encounter Plan of Treatment Not on file documented as of this encounter Visit Diagnoses Not on filedocumented in this encounter Care Teams Mothercraft Nurse Relationship Specialty Start Date End Date Yolande Nicholas DO PCP - General Internal Medicine 12/03/18 10/08/20 Anuj Priest DO PCP - General Internal Medicine 10/09/[address] [place] [address], Pcp PCP - General Internal Medicine 06/17/21 documented as of this encounter
--- OUTSIDE RECORDS SUMMARY | 2024-06-19 15:05 | XMS_ITS | Encounter Summary ---
Author Organization [facility] [employer] [facility] Address [address] [place] [address] Care Team Providers Care Observer Gravity Prospecting Name Role Phone Annalee Jones MD Primary Care Provider Un available Yolande Nicholas DO Primary Care Pro vider Unavailable Anuj Priest DO Primary Care Provider Judy vailable [facility], Pcp Primary Care Provider Unavailabl e Encounter Details Date Type Department Care Team Description 08/01/2018 Transfer Records Medical Records [address] [place] [address] Abstract, Provider Social History Tobacco Use Types [...] on filedocumented in this encounter Care Teams Observer Gravity Prospecting Relationship Specialty Start Date End Date Annalee Jones MD PCP - General Internal Medicine 01/06/17 9 Yolande Nicholas DO PCP - General Internal Medicine 12/03/18 10/08/20 Anuj Priest DO PCP - General Internal Medicine 10/09/20 2 [facility], Pcp PCP - General Internal Medicine 06/17/21 documented as of this encounter
--- OUTSIDE RECORDS SUMMARY | 2024-06-19 15:05 | XMS_ITS | Encounter Summary ---
Author Organization [employer] Address [address] [facility] 7t [place] [address] Care Team Providers Care Form Layer Name Role Phone Sesar Pereyra MD Primary Care Provider [phone] Reason for Visit * Reason Onset Date Comments Results 06/06/2023 Encounter Details Date Type Department Care Team ([facility] st Contact Info) Description 06/06/2023 Telephone [facility] [address] [place] [address] Sesar Pereyra MD [address] [place] [address] Results Social History Tobacco Use Types Packs/Day [...] done: 06/01/23-06/02/23 pt unsure Facility[place] [facility] documented in this encounter Plan of Treatment Upcoming Encounters Date Type Department Care Team (Late st Contact Info) Description 09/11/2024 10:30 AM EDT Office Visit [facility]S [address] [place] [address] Sesar Pereyra MD [address] [place] [address] documented as of this encounter Visit Diagnoses Not on filedocumented in this encounter Care Teams Form Layer Relationship Specialty Start Date End Date Sesar Pereyra MD [address] [place] [address] PCP - General Internal Medicine 03/01/21 [facility] 03/22/24 documented as of this encounter
--- OUTSIDE RECORDS SUMMARY | 2024-06-19 15:05 | XMS_ITS | Encounter Summary ---
Author Organization [employer] Address [address] [facility] 7t [place] [address] Care Team Providers Care Drying Supervisor Name Role Phone Sesar Pereyra MD Primary Care Provider [phone] Encounter Details Date Type Department Care Team ([facility] st Contact Info) Description 11/01/2023 Orders Only [facility] MED & PEDS [address] [place], [place] [phone] Sesar Pereyra MD [address] [place] [address] Social History Tobacco Use Types Packs/Day Years [...] Description 09/11/2024 10:30 AM EDT Office Visit [facility] PED[facility] [address] [place] [address] Sesar Pereyra MD [address] [place] [address] documented as of this encounter Visit Diagnoses Not on filedocumented in this encounter Additional Health Concerns Assessment Noted Time PHQ-9 Depression Total Score: 16 024 10:59 AM EDT documented as of this encounter Care Teams Drying Supervisor Relationship Specialty Start Date End Date Sesar Pereyra MD [address] [place] [address] PCP - General Internal Medicine 03/01/21 [facility] documented as of this encounter
--- OUTSIDE RECORDS SUMMARY | 2024-06-19 15:05 | XMS_ITS | Encounter Summary ---
Author [facility] Address [address] [place] [address] Care Team Providers Care Living Nurse Name Role Phone Yolande Nicholas DO Primary Care Pro vider Unavailable Anuj Priest DO Primary Care Provider [facility], Pcp Primary Care Provider Unavailabl e Reason for Visit * Reason Onset Date Comments Faxed Refill 08/13/2020 Melatonin 3 MG T ab Encounter Details Date Type Department Care Team Description 08/13/2020 Telephone Adult [address] [address] Yolande Nicholas DO Faxed Refill (Melatonin 3 [...] last prescribed in 2016. Called pt at [phone], phone continuously busy. * Telephone Encounter - [...] MED LIST AND IS IDENTIFIED BELOW): {MED LIST:16278) Med name: Melatonin 3 MG Tab Dosage: 3 mg tab # of tablets: Local pharmacy with request for 30 -day supply Instructions: Take one tablet by mouth daily at bedtime for sleep Did you check the pharmacy information above?: YES Patients current insurance carrier: Payor: [facility] / Plan: MEDICARE FFS $0 KARI MESA [id number] / Product Type: MEDICARE [id number] documented in this encounter Plan of Treatment Not on file documented as of this encounter Visit Diagnoses Not on filedocumented in this encounter Care Teams Living Nurse Relationship Specialty Start Date End Date Yolande Nicholas DO PCP - General Internal Medicine 12/03/18 10/08/20 Anuj Priest DO PCP - General Internal Medicine 10/09/20 2 [facility], Pcp PCP - General Internal Medicine 06/17/21 documented as of this encounter
--- OUTSIDE RECORDS SUMMARY | 2024-06-19 15:05 | XMS_ITS | Clinical Summary ---
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
--- OUTSIDE RECORDS SUMMARY | 2024-06-19 15:05 | XMS_ITS | Encounter Summary ---
Author Organization [employer] [facility] Address [address] [place] [address] Care Team Providers Care Assembling Inspector Name Role Phone Ayo Carpio MD Primary Care Provider [phone] Annalee Jones MD Primary Care Provider Un available Yolande Nicholas DO Primary Care Pro vider Unavailable Anuj Priest DO Primary Care Provider Judy [facility], Pcp Primary Care Provider Unavailabl e Encounter Details Date Type Department Care Team Description 10/19/2016 Orders Only Adult Medicine [address] [phone] Ayo Carpio MD [address] [place] [address] [phone] Lung nodule (Primary Dx) Social History Tobacco [...] nodule documented in this encounter Care Teams Assembling Inspector Relationship Specialty Start Date End Date Ayo Carpio MD [address] [place] [address] [id number] PCP - General Internal Medicine 07/19/16 01/05/17 Annalee Jones MD [address] [place] [address] PCP - General Internal Medicine 01/06/17 12/02/18 Yolande Nicholas, [address] [place] [address] PCP - General Internal Medicine 12/03/18 10/08/20 Anuj Priest DO [address] [place] [address] PCP - General Internal Medicine 10/09/20 06/16/21 [facility], Pcp [address] [place] [address] PCP - General Internal Medicine 06/17/21 documented as of this encounter
--- OUTSIDE RECORDS SUMMARY | 2024-06-19 15:05 | XMS_ITS | Encounter Summary ---
Author Organization [employer] Address [address] [facility] 7t [place] [address] Care Team Providers Care Coat Check Attendant Name Role Phone Sesar Pereyra MD Primary Care Provider [phone] Reason for Visit * Reason Comments Med Refill Encounter Details Date Type Department Care Team ([facility] st Contact Info) Description 08/29/2023 Refill [facility] [address] [place] [address] Sesar Pereyra MD [address] [place] [address] Social History Tobacco Use Types Packs/Day Years [...] Description 09/11/2024 10:30 AM EDT Office Visit [facility] MED & PEDS [address] [place] [address] Sesar Pereyra MD [address] [place] [address] documented as of this encounter Visit Diagnoses Not on filedocumented in this encounter Additional Health Concerns Assessment Noted Time PHQ-9 Depression Total Score: 16 024 10:59 AM EDT documented as of this encounter Care Teams Coat Check Attendant Relationship Specialty Start Date End Date Sesar Pereyra MD [address] [place] [address] PCP - General Internal Medicine 03/01/21 [facility] 03/22/24 documented as of this encounter
--- OUTSIDE RECORDS SUMMARY | 2024-06-19 15:05 | XMS_ITS | Encounter Summary ---
Author Organization [facility] [facility] Address [address] [place] [address] Care Team Providers Care Solar Installer Name Role Phone Ayo Carpio MD Primary Care Provider [phone] Annalee Jones MD Primary Care Provider Un available Yolande Nicholas DO Primary Care Pro vider Unavailable Anuj Priest DO Primary Care Provider Judy [facility], Pcp Primary Care Provider Unavailabl e Encounter Details Date Type Department Care Team Description 08/05/2016 Release of Information Medical Records [address] [place] [address] Abstract, Provider Social History Tobacco Use Types [...] on filedocumented in this encounter Care Teams Solar Installer Relationship Specialty Start Date End Date Ayo Carpio MD [address] [place] [address] [phone] PCP - General Internal Medicine 07/19/16 01/05/17 Annalee Jones MD [address] [place] [address] PCP - General Internal Medicine 01/06/17 12/02/18 Yolande Nicholas, [address] [place] [address] PCP - General Internal Medicine 12/03/18 10/08/20 Anuj Priest DO [address] [place] [address] PCP - General Internal Medicine 10/09/20 06/16/21 [facility], Pcp [address] [place] [address] PCP - General Internal Medicine 06/17/21 documented as of this encounter
--- OUTSIDE RECORDS SUMMARY | 2024-06-19 15:05 | XMS_ITS | Encounter Summary ---
Author Organization [facility] Address [address] [place] [address] Care Team Providers Care Second Butler Name Role Phone Anuj Priest DO Primary Care Provider Judy vailable [facility], Pcp Primary Care Provider Unavailabl e Encounter Details Date Type Department Care Team Description 06/10/2021 Telephone Adult Medicine [facility] [address] [place] [address] Anuj Priest DO Social History Tobacco Use [...] on filedocumented in this encounter Care Teams Second Butler Relationship Specialty Start Date End Date Anuj Priest DO PCP - General Internal Medicine 10/09/20 2 [facility], Pcp PCP - General Internal Medicine 06/17/21 documented as of this encounter
--- OUTSIDE RECORDS SUMMARY | 2024-06-19 15:05 | XMS_ITS | Clinical Summary ---
Author Organization [facility] Address [address] [place] [address] Care Team Providers Care Composition Tile Layer Name Role Phone Nuha Galvin PA-C Primary Care Provider [phone] Source Comments PLEASE NOTE, if this patient [...] Date Sleep disorder 02/02/2015 Overview (02/02/2015): [facility] sleep on 01/15/2015: Dr. Johnson [...] once a year. In remission Seen at [facility] urology Depression with anxiety 04/01/2014 Overview (04/01/2014): Dr. Pradhan at [facility]. Is going to establish care at a new facility. PVD (peripheral vascular dis ease) with claudication ([facility]) 04/01/2014 Overview (07/04/2014): Fem-Fem done by Dr. Hensley in 2006. Sees this doctor once a year at [facility]. Follows up with this facility every 6 months. 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
--- OUTSIDE RECORDS SUMMARY | 2024-06-19 15:05 | XMS_ITS | Encounter Summary ---
Author Organization [facility] Address [address] [place] [address] Care Team Providers Care Radio Engineering Teacher Name Role Phone Ghassan Burciaga MD Primary Care Provider Unavail able Pierre Arevalo MD Primary Care Provider Judy vailable Gerson Dawson MD Primary Care Provider Unavail able Pending Sale To [facility], Pcp Primary Care Provider Unavailabl e Coleman Mccarthy MD Primary Care Provider Unavaila Ayo Demarco MD Primary Care Provider [phone] Annalee Jones MD Primary Care Provider Un available Pascual Nicholasabela DO Primary Care Pro vider Unavailable Anuj Priest DO Primary Care Provider Judy vailable Pending Sale To [facility], Pcp Primary Care Provider Unavailabl e Encounter Details Date Type Department Care Team Description 01/30/2009 Hospital Medical Records [address] [place] [address] Fernie Higginbotham MD Social History Tobacco Use [...] on filedocumented in this encounter Care Teams Radio Engineering Teacher Relationship Specialty Start Date End Date Ghassan Burciaga MD PCP - General 07/24/00 05/06/13 Pierre Arevalo MD PCP - General Internal Medicine 05/07/13 4 Gerson Dawson MD PCP - General Internal Medicine 01/30/14 03/20/14 Pending Sale To [facility], Pcp PCP - General Internal Medicine 03/21/14 05/06/14 Coleman Mccarthy MD PCP - General Internal Medicine 05/07/14 07/18/16 Ayo Carpio MD [address] [place], [place] [phone] PCP - General Internal Medicine 07/19/16 01/05/17 Annalee Jones MD [address] [place], [place] [phone] PCP - General Internal Medicine 01/06/17 12/02/18 Yolande Nicholas DO [address] [place] [id number] PCP - General Internal Medicine 12/03/18 10/08/20 Anuj Priest DO [address] [place] [address] PCP - General Internal Medicine 10/09/20 06/16/21 Pending Sale To [facility], Pcp PCP - General Internal Medicine 06/17/21 documented as of this encounter
--- OUTSIDE RECORDS SUMMARY | 2024-06-19 15:05 | XMS_ITS | Encounter Summary ---
Author Organization [facility] Address [address] [place] [address] Care Team Providers Care Linotype Worker Name Role Phone Ayo Carpio MD Primary Care Provider [phone] Annalee Jones MD Primary Care Provider Un available Yolande Nicholas DO Primary Care Pro vider Unavailable Anuj Priest DO Primary Care Provider Judy [facility], Pcp Primary Care Provider Unavailabl e Encounter Details Date Type Department Care Team Description 10/06/2016 Industrial Specialist Report Medical Records [address] [place] [address] Anuj Easton Social History Tobacco Use Types [...] on filedocumented in this encounter Care Teams Linotype Worker Relationship Specialty Start Date End Date Ayo Carpio MD [address] [place] [address] PCP - General Internal Medicine 07/19/16 01/05/17 Annalee Jones MD [address] [place] [address] PCP - General Internal Medicine 01/06/17 12/02/18 Yolande Nicholas, [address] [place] [address] PCP - General Internal Medicine 12/03/18 10/08/20 Anuj Priest, [address] [place] [address] PCP - General Internal Medicine 10/09/20 06/16/21 [facility], Pcp [address] [place] [address] PCP - General Internal Medicine 06/17/21 documented as of this encounter
--- OUTSIDE RECORDS SUMMARY | 2024-06-19 15:05 | XMS_ITS | Encounter Summary ---
Author Organization [facility] Address [address] [place] [address] Care Team Providers Care Sales Manager Prearranged Funerals Name Role Phone Annalee Jones MD Primary Care Provider Un available Yolande Nicholas DO Primary Care Pro vider Unavailable Anuj Priest DO Primary Care Provider Judy vailable [facility], Pcp Primary Care Provider Unavailabl e Encounter Details Date Type Department Care Team Description 04/27/2018 Hospital Medical Records [address] [place] [id number] [place] [address] Social History Tobacco Use Types Packs/Day Years [...] filedocumented in this encounter Care Teams Sales Manager Prearranged Funerals Relationship Specialty Start Date End Date Annalee Jones MD PCP - General Internal Medicine 01/06/17 9 Yolande Nicholas DO PCP - General Internal Medicine 12/03/18 10/08/20 Anuj Priest DO PCP - General Internal Medicine 10/09/20 2 Jj, Pcp PCP - General Internal Medicine 06/17/21 documented as of this encounter
--- OUTSIDE RECORDS SUMMARY | 2024-06-19 15:05 | XMS_ITS | Encounter Summary ---
Author Organization [facility] Address [address] [place] [address] Care Team Providers Care Picker Packer Name Role Phone Coleman Mccarthy MD Primary Care Provider Unavaila ble Ayo Carpio MD Primary Care Provider [phone] Annalee Jones MD Primary Care Provider Un available Yolande Nicholas DO Primary Care Pro vider Unavailable Anuj Priest DO Primary Care Provider [facility], Pcp Primary Care Provider Unavailabl e Encounter Details Date Type Department Care Team Description 05/19/2015 Collar Worker Report Medical Records [address] [place] [address] Anuj Easton Social History Tobacco Use Types [...] on filedocumented in this encounter Care Teams Picker Packer Relationship Specialty Start Date End Date Coleman Mccarthy MD PCP - General Internal Medicine 05/07/14 07/18/16 Ayo Carpio MD [address] [place] [address] PCP - General Internal Medicine 07/19/16 01/05/17 Annalee Jones MD [address] [place] [address] PCP - General Internal Medicine 01/06/17 12/02/18 Yolande Nicholas, [address] [place] [address] PCP - General Internal Medicine 12/03/18 10/08/20 Anuj Priest DO [address] [place] [address] PCP - General Internal Medicine 10/09/20 06/16/21 [facility], Pcp [address] [place] [address] PCP - General Internal Medicine 06/17/21 documented as of this encounter
--- OUTSIDE RECORDS SUMMARY | 2024-06-19 15:05 | XMS_ITS | Encounter Summary ---
Author Organization [facility] Address [address] [facility] [place] [address] Care Team Providers Care Cloth Grader Supervisor Name Role Phone Sesar Pereyra MD Primary Care Provider [phone] Reason for Referral * Consultation (Routine) - Closed Specialty Diagnoses / Procedures Referred By Contac t Referred To Contact Geriatric Medicine Diagnoses Memory disturbance Sesar Pereyra MD [address] [place] [address] Phone: tel: fax: [facility] [address] [place] [phone] Phone: tel: fax: Referral ID Status Reason Start Date Expiration Date V isits Requested Visits Authorized [id number] Closed Specialty Services Required 01/11/2024 01/10/2025 1 1 Encounter Details Date Type Department Care Team (Late st Contact Info) Description 01/11/2024 Orders Only [facility] MED & PEDS [address] [place], [place] [phone] Sesar Pereyra MD [address] [place], [place] [phone] Memory disturbance (Primary Dx) Social History Tobacco [...] Description 09/11/2024 10:30 AM EDT Office Visit [facility] MED [facility] P[facility] [address] [place] [address] Sesar Pereyra MD [address] [place] [address] Scheduled Referrals Name Type Priority Associated Diagnoses Orde r Schedule Referral to Geriatrics Outpatient Referral Routine Memory disturbance Expected: 01/11/2024 (Approximate), Expires: 01/10/2025 documented as of this encounter Visit Diagnoses Diagnosis Memory disturbance- Primary Memory loss documented in this encounter Additional Health Concerns Assessment Noted Time PHQ-9 Depression Total Score: 16 024 10:59 AM EDT documented as of this encounter Care Teams Cloth Grader Supervisor Relationship Specialty Start Date End Date Sesar Pereyra MD [address] [place] [address] PCP - General Internal Medicine [facility]01[facility] documented as of this encounter
--- OUTSIDE RECORDS SUMMARY | 2024-06-19 15:05 | XMS_ITS | Encounter Summary ---
Author Organization [facility] Address [address] [place] [address] Care Team Providers Care Tongue Presser Name Role Phone Yolande Nicholas DO Primary Care Pro vider Unavailable Anuj Priest DO Primary Care Provider [facility], Pcp Primary Care Provider Unavailabl e Reason for Visit * Reason Onset Date Comments Faxed Refill 02/25/2020 Encounter Details Date Type Department Care Team Description 02/25/2020 Refill Adult Medicine [address] [address] Yolande Nicholas DO Faxed Refill Social History [...] encounter Miscellaneous Notes * Telephone Encounter - Yoanna Kathy - 02/25/2020 1:39 PM EDT Patient would like script to be: E-PRESCRIBED/FAXED TO PHARMACY WHEN WAS THE PATIENT'S LAST APPOINTMENT IN ADULT MEDICINE? 02/24/20 WHEN WAS THE LAST TIME THE PATIENT SAW THEIR PCP? Same as above Does patient have an upcoming appointment? No - patient will call (THE MEDICATION REQUESTED IS ON THE MED [...] - MEDICARE / Plan: MEDICARE FFS $5 [id number] / Product Type: MEDICARE [id number] documented in this encounter Plan of Treatment Not on file documented as of this encounter Visit Diagnoses Not on filedocumented in this encounter Care Teams Tongue Presser Relationship Specialty Start Date End Date Yolande Nicholas DO PCP - General Internal Medicine 12/03/18 10/08/20 Anuj Priest DO PCP - General Internal Medicine 10/09/[address] [place] [address], Pcp PCP - General Internal Medicine 06/17/21 documented as of this encounter
--- OUTSIDE RECORDS SUMMARY | 2024-06-19 15:05 | XMS_ITS | Encounter Summary ---
Author Organization [facility] [facility] Address [address] [facility] [address] [place] [address] Care Team Providers Care Supervisor Beet End Name Role Phone Sesar Pereyra MD Primary Care Provider [phone] Encounter Details Date Type Department Care Team ([facility] st Contact Info) Description 04/01/2024 Orders Only [facility] MED & [facility]EDS [address] [place], [place] [phone] Sesar Pereyra MD [address] [place] [address] Essential hypertension (Primary Dx) Social History Tobacco [...] Upcoming Encounters Date Type Department Care Team ([facility] st Contact Info) Description 09/11/2024 10:30 AM EDT Office Visit [facility] [address] [place] [address] Sesar Pereyra MD [address] [place] [address] documented as of this encounter Visit Diagnoses Diagnosis Essential hypertension- Primary Unspecified essential hypertension documented in this encounter Additional Health Concerns Assessment Noted Time PHQ-9 Depression Total Score: 16 024 10:59 AM EDT documented as of this encounter Care Teams Supervisor Beet End Relationship Specialty Start Date End Date Sesar Pereyra MD [address] [place] [address] PCP - General Internal Medicine 03/01/21 [facility] 03/22/24 documented as of this encounter
--- OUTSIDE RECORDS SUMMARY | 2024-06-19 15:05 | XMS_ITS | Encounter Summary ---
Author Organization [facility] Address [address] [place] [address] Care Team Providers Care Stripper Black And White Name Role Phone Yolande Nicholas DO Primary Care Pro vider Unavailable Anuj Priest DO Primary Care Provider [facility], Pcp Primary Care Provider Unavailabl e Reason for Visit * Reason Onset Date Comments [facility] Call 02/25/2020 Encounter Details Date Type Department Care Team Description 02/25/2020 Telephone Adult Medicine [address] [address] Yolande Nicholas DO [facility] Call Social History [...] on filedocumented in this encounter Care Teams Stripper Black And White Relationship Specialty Start Date End Date Yolande Nicholas DO PCP - General Internal Medicine 12/03/18 10/08/20 Anuj Priest DO PCP - General Internal Medicine 10/09/[address] [place] [address], Pcp PCP - General Internal Medicine 06/17/21 documented as of this encounter
--- OUTSIDE RECORDS SUMMARY | 2024-06-19 15:05 | XMS_ITS | Clinical Summary ---
Author Organization [employer] Address 75 [facility] 7t [place] [address] Care Team Providers Care Lay Up Operator Name Role Phone Sesar Pereyra MD Primary Care Provider [phone] Allergies No known active allergies Medications clonazePAM [...] considered Sleep disorder 02/02/2015 Overview (01/22/2024): Saw [facility] sleep on 01/15/2015: Dr. Johnson Likely DILLAN sleep study ordered. Given that he has RLS, He may have periodic limb movement disorder which can be checked for in the study. Check ferritin. Will await sleep study. Depression with anxiety 04/01/2014 Overview (06/16/2022): Dr. Pradhan at [facility]. Is going to establish care at [...] Sees this doctor once a year at [facility]. Follows up with this facility every 6 months. Pure hypercholesterolemia 07/24/2009 Thoracic aortic aneurysm (TAA) 03/11/2009 Overview (01/22/2024): IMO update Seen by [facility]. 4.[address] 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/19/2005 Encounters Date Type Department Care Team Description 06/13/2024 1:00 PM EST Office Visit [facility] [address] [place] [address] Sesar Pereyra MD Kidney stone (Primary Dx); Primary hypertension; Low back pain at multiple sites; Tinnitus of right ear; Lower urinary tract symptoms 06/13/2024 Travel 06/12/2024 Orders Only GENERIC EXTERNAL DATA DEPARTMENT Provider, Generic External Data 05/30/[address] [address] Sesar Pereyra MD Lab Orders; Referral 05/30/2024 Telephone [facility] [address] [place] [address] Sesar Pereyra MD 05/28/2024 Telephone [facility] [address] [place] [address] Sesar Pereyra MD fyi 05/27/2024 Refill [facility] [address] [place] [address] Sesar Pereyra MD 05/23/[address] [address] Sesar Pereyra MD Medication Question 05/15/2024 Telephone [facility] [address] [place] [address] Sesar Pereyra MD 05/09/2024 Telephone [facility] [address] [place] [address] Verona Thompson, CLAUDIA 05/07/2024 9:15 AM EST Office Visit [facility] [address] [place] [address] Natasha Jiang MD Kidney stone (Primary Dx) 05/07/2024 Telephone [facility] [address] [place] [address] Natasha Jiang MD Medication Question 05/07/2024 Orders Only [facility] [address] [place] [address] Natasha Jiang MD 05/07/2024 Travel 05/06/2024 Telephone [facility] [address] [place] [address] Sesar Pereyra MD Nurse Triage 04/30/2024 Refill [facility] [address] [place] [address] Sesar Pereyra MD Longstanding persistent atrial fibrillation (CMS/HCC); PVD (peripheral vascular disease) (CMS/HCC) 04/29/2024 Orders Only [facility] [address] [place] [address] Sesar Pereyra MD Closed nondisplaced fracture of acromial end of right clavicle, initial encounter 04/29/2024 Telephone [facility] [address] [place] [address] Sesar Pereyra MD Nurse Triage 04/28/2024 Refill [facility] [address] [place] [address] Sesar Pereyra MD 04/26/2024 Refill [facility] [address] [place] [address] Sesar Pereyra MD Closed nondisplaced fracture of acromial end of right clavicle, initial encounter 04/26/2024 Telephone [facility] [address] [place] [address] Sesar Pereyra MD Med Refill 04/18/2024 Refill [facility] [address] [place] [address] Loyda Jacobson, CLAUDIA Essential hypertension; Closed nondisplaced fracture of acromial end of right clavicle, initial encounter 04/18/[address] [facility] [address] [place] [address] Sesar Pereyra MD Med Refill 04/11/2024 Refill [facility] [address] [place] [address] Sesar Pereyra MD 04/11/2024 Refill [facility] [address] [place] [address] Natasha Jiang MD Closed nondisplaced fracture of acromial end of right clavicle, initial encounter 04/11/2024 Travel 04/10/2024 Refill [facility] [address] [place] [address] Sesar Pereyra MD Closed nondisplaced fracture of acromial end of right clavicle, initial encounter 04/10/[address] [address] Sesar Pereyra MD Med Refill 04/03/2024 3:00 PM EST Office Visit [facility] [address] [place] [address] Lauren Vogel MD Cellulitis of left lower extremity (Primary Dx) 04/03/[address] [address] Sesar Pereyra MD Nurse Triage 04/02/[address] [address] Sesar Pereyra MD callback number; Medication Question 04/02/2024 Refill [facility] [address] [place] [address] Sesar Pereyra MD Closed nondisplaced fracture of acromial end of right clavicle, initial encounter 04/02/2024 Telephone [facility] [address] [place] [address] Sesar Pereyra MD Med Refill 04/02/2024 Orders Only [facility] [address] [place] [address] Jazmyn Bates MD 04/01/2024 Orders Only [facility] [address] [place] [address] Sesar Pereyra MD Essential hypertension (Primary Dx) 03/27/2024 9:15 AM EST Office Visit [facility] [address] [place] [address] Sesar Pereyra MD Acute kidney injury (CMS/HCC) (Primary Dx); Closed nondisplaced fracture of acromial end of right clavicle, initial encounter; Longstanding persistent atrial fibrillation (CMS/HCC); Dizziness; Bradycardia 03/27/2024 Telephone [facility] [address] [place] [address] Analilia Mart, CLAUDAI Plan of care 03/27/2024 Travel 03/25/2024 Telephone [facility] [address] [place] [address] Sesar Pereyra MD Chart Prep 03/22/[address] [address] Sesar Pereyra MD Nurse Triage from Last 3 Months Immunizations Name Administration [...] Mass Index 33.23 06/13/2024 1:02 PM EST Plan of Treatment Upcoming Encounters Date Type Department Care Team (Late st Contact Info) Description 09/11/2024 10:30 AM EDT Office Visit [facility] [address] [place] [address] Sesar Pereyra MD [address] [place] [address] Health Maintenance Due Date Last Done Comments [...] Procedure Name Priority Date/Time Associated Diagnosis Comments CALCIUM Routine 06/12/2024 12:09 PM EST CREATININE, SERUM Routine 06/12/2024 12: 09 PM EST UREA NITROGEN (BUN) Routine 06/12/2024 1 2:09 PM EST ELECTROLYTE PANEL Routine 06/12/2024 12: 09 PM EST XR KUB AND UPRIGHT 2 VIEWS STAT 05/07/2024 10:21 AM EST Kidney stone POCT URINALYSIS DIPSTICK Routine 05/07/2024 9:33 AM EST Kidney stone ECG 12-LEAD Routine 04/01/2024 4:18 PM EST Bradycardia BASIC METABOLIC PANEL Routine 03/27/2024 11:00 AM EST Acute kidney injury (CMS/HCC) ECG 12-LEAD Routine 03/27/2024 9:23 AM EST HEPATITIS C ANTIBODY Routine 07/19/2023 11:42 AM EDT Annual physical exam LIPID PANEL, STANDARD Routine 03/05/2021 9:16 AM EDT from Last 3 Months or Most Recently Relevant to Health Maintenance Results * Creatinine, Serum (06/12/2024 12:09 PM EST) Creatinine, Serum 1.13 0.5 - 1.4 mg/dL [facility] Estimated Glomerular Filt Rate >60 [facility] Comment:Chronic Kidney Disea se: Estimated GFR < 60 mL/min/1.51o8Pmorgp Kidney Disease: Estimated GFR < 15 mL/min/1.73m2 06/12/2024 12:0 9 PM EST 06/12/2024 12:14 PM EST us Generic External Data Provider LAB BLOOD ORDERAB LES Final Result Performing Organization Address [facility]/ZIP Co de Phone Number [facility] [address] [place] [address] [phone] * (ABNORMAL) BUN (Blood Urea Nitrogen) (06/12/2024 12:09 PM EST) Urea Nitrogen (BUN) 18(H) 9 - 16 mg/dL [facility] 06/12/2024 12:0 9 PM EST 06/12/2024 12:14 PM EST us Generic External Data Provider LAB BLOOD ORDERAB LES Final Result Performing Organization Address [facility]/ZIP Co de Phone Number [facility] [address] [place] [phone] * Calcium (06/12/2024 12:09 PM EST) Calcium 9.1 8.4 - 10.2 mg/dL [facility] 06/12/2024 12:0 9 PM EST 06/12/2024 12:14 PM EST Generic External Data Provider LAB BLOOD ORDERAB LES Final Result Performing Organization Address [facility] de Phone Number [facility] [address] [place] [address] [phone] * (ABNORMAL) Electrolyte Panel (06/12/2024 12:09 PM EST) Pathologist [facility] Sodium 142 135 - 145 mmol/L [facility] Potassium 4.0 3.3 - 5.1 mmol/L [facility] Comment:Slight Hemolysis.Int erpret result with caution. Chloride 109(H) 96 - 108 mmol/L [facility] Carbon Dioxide 24 22 - 29 mmol/L [facility] Anion Gap 13 12 - 20 [facility] 06/12/2024 12:0 9 PM EST 06/12/2024 12:14 PM EST Generic External Data Provider LAB BLOOD ORDERAB LES Final Result Performing Organization Address [facility] Phone Number [facility] [address] [place] [address] [phone] * XR KUB and Upright 2 Views (05/07/2024 10:21 AM EST) Anatomical Region Laterality Modality Radiographic Homa ging 05/07/2024 10:2 1 AM EST Narrative 05/07/2024 10:48 AM EST ? [facility] ?[address] ?[place] [address] ?XRay Report ? Signed ? Patient: Prawismaelki,Alex ?MR#: [id number] ?? [id number] ? : 1945 ?Acct:[id number] ? Age/Sex: 79 / M ?ADM Date: 01/07/25 ? Loc: HO.XRAY ? Attending Dr: Natasha Jiang MD ? Ordering Physician: Natasha Jiang MD ?? Date of Service: 05/07/24 ?? Procedure(s): XR KUB ?? Accession Number(s): [id number] ? cc: Sesar Pereyra MD; Natasha Jiang [...] DD/ 1021 ? TD/TT: 05/07/24 1040 ? Tunnel Mucker: ? Procedure Note Hernandez, Image - 05/07/2024 [place] [address] XRay Report Signed Patient: Ronald Nettles#: [id number] : 1945cct:[id number] Age/Sex: 79 / MADM Date: 05/07/24 Loc: [facility] Attending Dr: Natasha Jiang MD Ordering Physician: Natasha Jiang MD Date of Service: 05/07/24 Procedure(s): XR KUB Accession Number(s): [id number] cc: Sesar Pereyra MD; Natasha Jiang MD [...] 05/07/24 1045 DD/ 1021 TD/TT: 05/07/24 1040 Tunnel Mucker: Natasha Jiang MD IMG XR PROCEDURES Edited [...] EST Heart rate 48 bpm. ??Sinus rhythm. ??[place]: 0 degrees. ??No sign of left atrial enlargement or right atrial enlargement. ??No sign of hypertrophy. ?? T wave inversion in aVL and aVF us Sesar Pereyra MD ECG ORDERABLES Final Resul t * (ABNORMAL) Basic Metabolic Panel (03/27/2024 11:00 AM EST) Sodium 141 135 - 145 mmol/L [facility] Potassium 4.8 3.3 - 5.1 mmol/L [facility] Comment:Slight Hemolysis.Int erpret result with caution. Chloride 109(H) 96 - 108 mmol/L [facility] Carbon Dioxide 21(L) 22 - 29 mmol/L [facility] Anion Gap 16 12 - 20 [facility] Urea Nitrogen (BUN) 21(H) 9 - 16 mg/dL [facility] Creatinine, Serum 1.25 0.5 - 1.4 mg/dL [facility] Estimated Glomerular Filt Rate 56 [facility] Comment:Chronic Kidney Disea se: Estimated GFR < 60 mL/min/1.89d2Zoycpk Kidney Disease: Estimated GFR < 15 mL/min/1.73m2 Glucose 83 60 - 115 mg/dL [facility] Calcium 9.4 8.4 - 10.2 mg/dL [facility] Blood Venous blood specimen / Unknown 03/27/2024 11:00 AM EST 03/27/2024 2:18 PM EST us Sesar Pereyra MD LAB BLOOD ORDERABLES Final Result Performing Organization Address City/State/[facility] Co de Phone Number [facility] [address] [place] [phone] * Hepatitis C Ab (07/19/2023 11:42 AM EDT) Hepatitis C Antibody Nonreactive Nonreactive [facility] Comment:Antibodies to HCV no t detected; does not exclude early acuteHCV infection. Blood Venous blood specimen / Unknown 07/19/2023 11:42 AM EDT 07/19/2023 2:25 PM EDT Sesar Pereyra MD LAB BLOOD ORDERABLES Final Result [facility] [address] [place] [address] [phone] * (ABNORMAL) LIPID PANEL, STANDARD (03/05/2021 [...] ?? Ulisses MCDANIEL et al. MANDEEP. 2013;310(19): 0936-9735 ?? (http://education.[employer].Incoming Media/faq/JMV292) Non-HDL Cholesterol 104 <130 mg/dL (calc) [facility] [...] Pereyra MD LAB BLOOD ORDERABLES Final Result [facility] [address] from Last 3 Months or Most Recently Relevant to Health Maintenance Insurance [employer] MEDICARE REPLACEMENT [facility] FULL Care Teams Lay Up Operator Relationship Specialty Start Date End Date Sesar Pereyra MD [address] [place] [address] PCP - General Internal Medicine 03/01/21 [facility] 03/22/24
--- OUTSIDE RECORDS SUMMARY | 2024-06-19 15:06 | XMS_ITS | Encounter Summary ---
Author Organization [facility] Address [address] [place] [address] Care Team Providers Care Manager Of Environmental Services Name Role Phone Yolande Nicholas DO Primary Care Pro vider Unavailable Anuj [place] DO Primary Care Provider [facility], Pcp Primary Care Provider Unavailabl e Encounter Details Date Type Department Care Team Description 03/13/2020 Pt. Non Urgent Medic al Question Adult Medicine [address] [address] Yolande Nicholas DO Social History Tobacco Use [...] filedocumented in this encounter Care Teams Manager Of Environmental Services Relationship Specialty Start Date End Date Yolande Nicholas DO PCP - General Internal Medicine 12/03/18 10/08/20 Anuj [place] DO PCP - General Internal Medicine 10/09/20 2 [facility], Pcp PCP - General Internal Medicine 06/17/21 documented as of this encounter
--- OUTSIDE RECORDS SUMMARY | 2024-06-19 15:06 | XMS_ITS | Encounter Summary ---
Author Organization [employer] Address [address] [facility] 7t [place] [address] Care Team Providers Care Nut Process Helper Name Role Phone Sesar Pereyra MD Primary Care Provider [phone] Reason for Visit * Reason Onset Date Comments Med Refill 05/27/2024 Encounter Details Date Type Department Care Team ([facility] st Contact Info) Description 05/27/2024 Refill [facility]EDS [address] [place] [address] Sesar Pereyra MD [address] [place] [address] Social History Tobacco Use Types Packs/Day Years [...] 7.5 MG tablet To be sent to: [facility] - [place], [place] - [address] [place] [address] STEET documented in this encounter Plan of Treatment Upcoming Encounters Date Type Department Care Team (Late st Contact Info) Description 09/11/2024 10:30 AM EDT Office Visit [facility] MED & PEDS [address] [place] [address] Sesar Pereyra MD [address] [place] [address] documented as of this encounter Visit Diagnoses Not on filedocumented in this encounter Additional Health Concerns Assessment Noted Time PHQ-9 Depression Total Score: 16 024 10:59 AM EDT documented as of this encounter Care Teams Nut Process Helper Relationship Specialty Start Date End Date Sesar Pereyra MD [address] [place] [address] PCP - General Internal Medicine 03/01/21 [facility] 03/22/24 documented as of this encounter
--- OUTSIDE RECORDS SUMMARY | 2024-06-19 15:06 | XMS_ITS | Encounter Summary ---
Author Organization [employer] Address [address] [facility] 7t [place] [address] Care Team Providers Care Pump Assembler Name Role Phone Sesar Pereyra MD Primary Care Provider [phone] Reason for Visit * Reason Comments Med Refill Encounter Details Date Type Department Care Team ([facility] Contact Info) Description 10/26/2022 Refill [facility] MED & PEDS [address] [place] [address] Sesar Pereyra MD [address] [place] [address] Social History Tobacco Use Types Packs/Day Years [...] Upcoming Encounters Date Type Department Care Team ([facility] Contact Info) Description 09/11/2024 10:30 AM EDT Office Visit [facility] MED & PEDS [address] [place] [address] Sesar Pereyra MD [address] [place] [address] documented as of this encounter Visit Diagnoses Not on filedocumented in this encounter Care Teams Pump Assembler Relationship Specialty Start Date End Date Sesar Pereyra MD [address] [place] [address] PCP - General Internal Medicine 03/01/21 [facility] 03/22/24 documented as of this encounter
--- OUTSIDE RECORDS SUMMARY | 2024-06-19 15:06 | XMS_ITS | Encounter Summary ---
Author Organization [employer] [facility] Address [address] [place] [address] Care Team Providers Care Barkeep Name Role Phone Ghassan Burciaga MD Primary Care Provider Unavail able Pierre Arevalo MD Primary Care Provider Judy vailable Gerson Dawson MD Primary Care Provider Unavail able [facility], Pcp Primary Care Provider Unavailabl e Coleman Mccarthy MD Primary Care Provider Unavaila Ayo Demarco MD Primary Care Provider [phone] Annalee Jones MD Primary Care Provider Un available Pascual Nicholasabela DO Primary Care Pro vider Unavailable Anuj [place] DO Primary Care Provider Judy vailable [facility], Pcp Primary Care Provider Unavailabl e Encounter Details Date Type Department Care Team Description 08/06/2010 Release of Information Medical Records [address] [place] [id number] Abstract, Provider Social History Tobacco Use Types [...] on filedocumented in this encounter Care Teams Barkeep Relationship Specialty Start Date End Date Ghassan Burciaga MD PCP - General 07/24/00 05/06/13 Pierre Arevalo MD PCP - General Internal Medicine 05/07/13 4 Gerson Dawson MD PCP - General Internal Medicine 01/30/14 03/20/14 [facility], Pcp PCP - General Internal Medicine 03/21/14 05/06/14 Coleman Mccarthy MD PCP - General Internal Medicine 05/07/14 07/18/16 Ayo Carpio MD [address] [place] [address] PCP - General Internal Medicine 07/19/16 01/05/17 Annalee Jones MD [address] [place] [address] PCP - General Internal Medicine 01/06/17 12/02/18 Yolande Nicholas, [address] [place] [address] PCP - General Internal Medicine 12/03/18 10/08/20 Anuj [place] DO [address] [place] [address] PCP - General Internal Medicine 10/09/20 06/16/21 [facility], Pcp PCP - General Internal Medicine 06/17/21 documented as of this encounter
--- OUTSIDE RECORDS SUMMARY | 2024-06-19 15:06 | XMS_ITS | Encounter Summary ---
Author Organization [employer] Address [address] [facility] 7t [place] [address] Care Team Providers Care Crew Mess Attendant Name Role Phone Sesar Pereyra MD Primary Care Provider [phone] Reason for Visit * Reason Onset Date Comments FYI 10/07/2022 Encounter Details Date Type Department Care Team ([facility] st Contact Info) Description 10/07/[address] [facility] MEDICINE [address] [place] [address] Sesar Pereyra MD [address] [place] [address] FYI Social History Tobacco Use Types Packs/Day [...] any questions or concerns please contact at [phone] documented in this encounter Plan of Treatment Upcoming Encounters Date Type Department Care Team ([facility] st Contact Info) Description 09/11/2024 10:30 AM EDT Office Visit [facility] MED & PEDS [address] [place] [address] Sesar Pereyra MD [address] [place], [place] [phone] documented as of this encounter Visit Diagnoses Not on filedocumented in this encounter Care Teams Crew Mess Attendant Relationship Specialty Start Date End Date Sesar Pereyra MD [address] [place] [address] PCP - General Internal Medicine 03/01/21 [facility] 03/22/24 documented as of this encounter
--- OUTSIDE RECORDS SUMMARY | 2024-06-19 15:06 | XMS_ITS | Encounter Summary ---
Author Organization [employer] Address [address] [facility] 7t [place] [address] Care Team Providers Care Family Mediator Name Role Phone Sesar Pereyra MD Primary Care Provider [phone] Reason for Visit * Reason Onset Date Comments Lab Orders 05/30/2024 Referral 05/30/2024 Encounter Details Date Type Department Care Team (Late st Contact Info) Description 05/30/2024 Telephone [facility] [address] [place] [address] Sesar Pereyra MD [address] [place] [address] Lab Orders; Referral Social History Tobacco Use [...] Description 09/11/2024 10:30 AM EDT Office Visit [facility] PEDS [address] [place] [address] Sesar Pereyra MD [address] [place] [address] documented as of this encounter Visit Diagnoses Not on filedocumented in this encounter Additional Health Concerns Assessment Noted Time PHQ-9 Depression Total Score: 16 024 10:59 AM EDT documented as of this encounter Care Teams Family Mediator Relationship Specialty Start Date End Date Sesar Pereyra MD [address] [place] [address] PCP - General Internal Medicine 03/01/21 [facility] 03/22/24 documented as of this encounter
--- OUTSIDE RECORDS SUMMARY | 2024-06-19 15:06 | XMS_ITS | Encounter Summary ---
Author Organization [employer] Address [address] [facility] 7t [place] [address] Care Team Providers Care Supervisor Agricultural Education Name Role Phone Sesar Pereyra MD Primary Care Provider [phone]- [phone] Reason for Visit * Reason Onset Date Comments fyi 05/28/2024 Encounter Details Date Type Department Care Team ([facility] st Contact Info) Description 05/28/2024 Telephone [facility] MEDICINE [address] [place] [address] Sesar Pereyra MD [address] [place] [address] fy Social History Tobacco Use Types Packs/Day Years [...] - 05/28/2024 9:37 AM EST Tc from [facility] with [employer] [facility] Care informing pt verbalized to her that he been taking THD Gummies 2x a day morning and afternoon. Gummies are 10mg per gummy as he's aware of what he's taking. documented in this encounter Plan of Treatment Upcoming Encounters Date Type Department Care Team ([facility] st Contact Info) Description 09/11/2024 10:30 AM EDT Office Visit [facility] MED & PEDS [address] [place] [address] Sesar Pereyra MD [address] [place] [address] documented as of this encounter Visit Diagnoses Not on filedocumented in this encounter Additional Health Concerns Assessment Noted Time PHQ-9 Depression Total Score: 16 024 10:59 AM EDT documented as of this encounter Care Teams Supervisor Agricultural Education Relationship Specialty Start Date End Date Sesar Pereyra MD [address] [place] [address] PCP - General Internal Medicine 03/01/21 [facility] 03/22/24 documented as of this encounter
--- OUTSIDE RECORDS SUMMARY | 2024-06-19 15:06 | XMS_ITS | Encounter Summary ---
Author Organization [employer] Address [address] [facility] 7t [place] [address] Care Team Providers Care Misdraw Hand Name Role Phone Sesar Pereyra MD Primary Care Provider [phone] Reason for Visit * Reason Comments Med Refill Encounter Details Date Type Department Care Team ([facility] Contact Info) Description 10/19/2022 Refill [facility] MED & PEDS [address] [place] [address] Sesar Pereyra MD [address] [place] [address] Social History Tobacco Use Types Packs/Day Years [...] Upcoming Encounters Date Type Department Care Team ([facility] Contact Info) Description 09/11/2024 10:30 AM EDT Office Visit [facility] MED & PEDS [address] [place] [address] Sesar Pereyra MD [address] [place] [address] documented as of this encounter Visit Diagnoses Not on filedocumented in this encounter Care Teams Misdraw Hand Relationship Specialty Start Date End Date Sesar Pereyra MD [address] [place] [address] PCP - General Internal Medicine 03/01/21 [facility] 03/22/24 documented as of this encounter
--- OUTSIDE RECORDS SUMMARY | 2024-06-19 15:06 | XMS_ITS | Encounter Summary ---
Author Organization [email or web address] Address [address] [facility] 7t [place] [address] Care Team Providers Care Photo Graphics Librarian Name Role Phone Sesar Pereyra MD Primary Care Provider [phone] Reason for Visit * Reason Onset Date Comments Medication Question 05/23/2024 Encounter Details Date Type Department Care Team ([facility] st Contact Info) Description 05/23/2024 Telephone [facility] MEDICINE [address] [place] [address] Sesar Pereyra MD [address] [place] [address] Medication Question Social History Tobacco Use Types [...] encounter Miscellaneous Notes * Telephone Encounter - Memorickie Bernabe - 05/23/2024 10:50 AM EST Tc from [facility] stating pt has transferred pharmacy but they would need pcp to send script for Aspirin Low Dose 81 MG EC tablet and atorvastatin (Lipitor) 80 MG tablet to be sent. If any questions you can contact [facility] at [phone]. documented in this encounter Plan of Treatment Upcoming Encounters Date Type Department Care Team ([facility] st Contact Info) Description 09/11/2024 10:30 AM EDT Office Visit [facility] MED & PEDS [address] [place] [address] Sesar Pereyra MD [address] [place] [address] documented as of this encounter Visit Diagnoses Diagnosis Primary hypertension Unspecified essential hypertension Hypercholesterolemia Pure hypercholesterolemia documented in this encounter Additional Health Concerns Assessment Noted Time PHQ-9 Depression Total Score: 16 024 10:59 AM EDT documented as of this encounter Care Teams Photo Graphics Librarian Relationship Specialty Start Date End Date Sesar Pereyra MD [address] [place] [address] PCP - General Internal Medicine 03/01/21 [facility] 03/22/24 documented as of this encounter
--- OUTSIDE RECORDS SUMMARY | 2024-06-19 15:06 | XMS_ITS | Encounter Summary ---
Author Organization [email or web address] Address [address] [facility] 7t [place] [address] Care Team Providers Care Harnessmaker Name Role Phone Sesar Pereyra MD Primary Care Provider [phone] Reason for Visit * Reason Onset Date Comments Lab Orders 05/04/2022 Encounter Details Date Type Department Care Team ([facility] st Contact Info) Description 05/04/2022 Telephone [facility] MEDICINE [address] [place] [address] Sesar Pereyra MD [address] [place] [address] Lab Orders Social History Tobacco Use Types [...] pt requesting status n lab referral to [facility] Please contact pt at [phone] * Telephone Encounter - Jacquelyn Abel - 05/04/2022 8:11 AM EST Tc from pt requesting a status update on lab orders. Please contact at [phone] documented in this encounter Plan of Treatment Upcoming Encounters Date Type Department Care Team (Late st Contact Info) Description 09/11/2024 10:30 AM EDT Office Visit [facility] MED & PEDS [address] [place] [address] Sesar Pereyra MD [address] [place] [address] Scheduled Orders Name Type Priority Associated Diagnoses Orde r Schedule Basic Metabolic Panel Lab Routine Essential hypertension Expected: 05/05/2022 (Approximate), Expires: 05/05/2023 documented as of this encounter Visit Diagnoses Diagnosis Essential hypertension- Primary Unspecified essential hypertension documented in this encounter Care Teams Harnessmaker Relationship Specialty Start Date End Date Sesar Pereyra MD [address] [place] [address] PCP - General Internal Medicine 03/01/21 [facility] 03/22/24 documented as of this encounter
--- OUTSIDE RECORDS SUMMARY | 2024-06-19 15:06 | XMS_ITS | Encounter Summary ---
Author Organization [employer] [facility] Address [address] [place] [address] Care Team Providers Care Office Technician Name Role Phone Ghassan Burciaga MD Primary Care Provider Unavail able Pierre Arevalo MD Primary Care Provider Judy vailable Gerson Dawson MD Primary Care Provider Unavail able [facility], Pcp Primary Care Provider Unavailabl e Coleman Mccarthy MD Primary Care Provider Unavaila Ayo Demarco MD Primary Care Provider [phone] Annalee Jones MD Primary Care Provider Un available Pascual Nicholasabela DO Primary Care Pro vider Unavailable Anuj Priest DO Primary Care Provider Judy vailable [facility], Pcp Primary Care Provider Unavailabl e Encounter Details Date Type Department Care Team Description 11/03/2006 Hospital Medical Records [address] [place] [address] Tyler Bloom MD Social History Tobacco Use [...] on filedocumented in this encounter Care Teams Office Technician Relationship Specialty Start Date End Date Ghassan Burciaga MD PCP - General 07/24/00 05/06/13 Pierre Arevalo MD PCP - General Internal Medicine 05/07/13 4 Gerson Dawson MD PCP - General Internal Medicine 01/30/14 03/20/14 [facility], Pcp PCP - General Internal Medicine 03/21/14 05/06/14 Coleman Mccarthy MD PCP - General Internal Medicine 05/07/14 07/18/16 Ayo Carpio MD [address] [place], [place] [id number] PCP - General Internal Medicine 07/19/16 01/05/17 Annalee Jones MD [address] [place], [place] [id number] PCP - General Internal Medicine 01/06/17 12/02/18 Yolande Nicholas, DO [address] [place] [address] PCP - General Internal Medicine 12/03/18 10/08/20 Anuj Priest, [address] [place] [address] PCP - General Internal Medicine 10/09/20 06/16/21 [facility], Pcp PCP - General Internal Medicine 06/17/21 documented as of this encounter
--- OUTSIDE RECORDS SUMMARY | 2024-06-19 15:06 | XMS_ITS | Encounter Summary ---
Author Organization [facility] Address [address] [place] [address] Care Team Providers Care Blind Slat Stapling Machine Operator Name Role Phone Yolande Nicholas DO Primary Care Pro vider Unavailable Anuj Priest DO Primary Care Provider [facility], Pcp Primary Care Provider [facility] Encounter Details Date Type Department Care Team Description 03/03/2020 Pt. Non Urgent Medic al Question Adult Medicine [address] [address] Yolande Nicholas DO Social History Tobacco Use [...] at 8:00 AM, Dr Argueta/Vascular Surgeon @ [facility] has ordered a US LOWER EXTREMITY ARTERIES (GRANT) PHSIO COMPLETE BILAT for Arun. *Please explain what this is. * 9:00 AM Office visit with Dr. Argueta. *Shall we instruct Dr. Argueta to send all reports to Dr. Alvarez? documented in this encounter Plan of Treatment Not on file documented as of this encounter Visit Diagnoses Not on filedocumented in this encounter Care Teams Blind Slat Stapling Machine Operator Relationship Specialty Start Date End Date Yolande Nicholas DO PCP - General Internal Medicine 12/03/18 10/08/20 Anju Priest DO PCP - General Internal Medicine 10/09/[address] [place] [address], Pcp PCP - General Internal Medicine 06/17/21 documented as of this encounter
--- OUTSIDE RECORDS SUMMARY | 2024-06-19 15:06 | XMS_ITS | Encounter Summary ---
Author Organization [employer] Address [address] [facility] 7 [place] [address] Care Team Providers Care Curator Natural [employer] Museum Name Role Phone Sesar Pereyra MD Primary Care Provider [phone] Encounter Details Date Type Department Care Team ([facility] Contact Info) Description 10/13/2022 Orders Only [facility] MED [facility]EDS [address] [place] [address] Sesar Pereyra MD [address] [place] [address] Social History Tobacco Use Types Packs/Day Years [...] Department Care Team (Late Contact Info) Description 09/11/2024 10:30 AM EDT Office Visit [facility] [address] [place] [address] Sesar Pereyra MD [address] [place] [address] documented as of this encounter Visit Diagnoses Not on filedocumented in this encounter Care Teams Curator Natural [employer] Museum Relationship Specialty Start Date End Date Sesar Pereyra MD [address] [place] [address] PCP - General Internal Medicine 03/01/21 [facility] [place] [facility] 03/22/24 documented as of this encounter
--- OUTSIDE RECORDS SUMMARY | 2024-06-19 15:06 | XMS_ITS | Encounter Summary ---
Author Organization [facility] Address [address] [place] [address] Care Team Providers Care Tool And Die Designer Name Role Phone Yolande Nicholas DO Primary Care Pro vider Unavailable Anuj Priest DO Primary Care Provider [facility], Pcp Primary Care Provider Unavailabl e Reason for Visit * Reason Onset Date Comments Faxed Order 03/07/2020 Encounter Details Date Type Department Care Team Description 03/07/[address] [address] Yolande Nicholas DO Faxed Order Social History [...] * Telephone Encounter - Gerri Parra - 03/07/2020 11:53 AM EST [facility] IS FAXING ORDERS TO BE SIGN AND FAX BACK TO [phone]. documented in this encounter Plan of Treatment Not on file documented as of this encounter Visit Diagnoses Not on filedocumented in this encounter Care Teams Tool And Die Designer Relationship Specialty Start Date End Date Yolande Nicholas DO PCP - General Internal Medicine 12/03/18 10/08/20 Anuj Priest DO PCP - General Internal Medicine 10/09/[address] [place] [address], Pcp PCP - General Internal Medicine 06/17/21 documented as of this encounter
--- OUTSIDE RECORDS SUMMARY | 2024-06-19 15:06 | XMS_ITS | Encounter Summary ---
Author Organization [employer] Address [address] [place] [address] Care Team Providers Care Tamping Machine Operator Name Role Phone Ghassan Burciaga MD Primary Care Provider Unavail able Pierre Arevalo MD Primary Care Provider Judy vailable Gerson Dawson MD Primary Care Provider Unavail able [facility], Pcp Primary Care Provider Unavailabl e Coleman Mccarthy MD Primary Care Provider Unavaila Ayo Demarco MD Primary Care Provider [phone] Annalee Jones MD Primary Care Provider Un available Pascual Nicholasabela DO Primary Care Pro vider Unavailable Anuj Priest DO Primary Care Provider Judy vailable [facility], Pcp Primary Care Provider Unavailabl e Encounter Details Date Type Department Care Team Description 09/17/2010 [facility] Report Medical Records [address] [place] [address] Jayshree Meade Social History Tobacco Use Types [...] on filedocumented in this encounter Care Teams Tamping Machine Operator Relationship Specialty Start Date End Date Ghassan Burciaga MD PCP - General 07/24/00 05/06/13 Pierre Arevalo MD PCP - General Internal Medicine 05/07/13 4 Gerson Dawson MD PCP - General Internal Medicine 01/30/14 03/20/14 [facility], Pcp PCP - General Internal Medicine 03/21/14 05/06/14 Coleman Mccarthy MD PCP - General Internal Medicine 05/07/14 07/18/16 Ayo Carpio MD [address] [place] [address] PCP - General Internal Medicine 07/19/16 01/05/17 Annalee Jones MD [address] [place] [address] PCP - General Internal Medicine 01/06/17 12/02/18 Yolande Nicholas DO [address] [place] [address] PCP - General Internal Medicine 12/03/18 10/08/20 Anuj Priest DO [address] [place] [address] PCP - General Internal Medicine 10/09/20 06/16/21 [facility], Pcp PCP - General Internal Medicine 06/17/21 documented as of this encounter
--- OUTSIDE RECORDS SUMMARY | 2024-06-19 15:06 | XMS_ITS | Encounter Summary ---
Author Organization [facility] Address [address] [place] [address] Care Team Providers Care Baby Stroller Rental Clerk Name Role Phone Yolande Nicholas DO Primary Care Pro vider Unavailable Anuj Priest DO Primary Care Provider [facility], Pcp Primary Care Provider Unavailabl e Reason for Visit * Reason Onset Date Comments Faxed Order 03/08/2020 Encounter Details Date Type Department Care Team Description 03/08/2020 Telephone Adult Medicine [address] [address] Yolande Nicholas DO Faxed Order Social History [...] review, sign, date, and fax back to [phone] * Telephone Encounter - Gerri Parra - 03/08/2020 2:16 PM EST [facility] IS FAXING ORDERS TO BE SIGN AND FAX BACK TO [phone]. documented in this encounter Plan of Treatment Not on file documented as of this encounter Visit Diagnoses Not on filedocumented in this encounter Care Teams Baby Stroller Rental Clerk Relationship Specialty Start Date End Date Yolande Nicholas DO PCP - General Internal Medicine 12/03/18 10/08/20 Anuj Priest DO PCP - General Internal Medicine 10/09/[address] [place] [address], Pcp PCP - General Internal Medicine 06/17/21 documented as of this encounter
--- OUTSIDE RECORDS SUMMARY | 2024-06-19 15:06 | XMS_ITS | Encounter Summary ---
Author Organization [employer] Address [address] [facility] 7t [place] [address] Care Team Providers Care Rental Representative Name Role Phone Sesar Pereyra MD Primary Care Provider [phone] Encounter Details Date Type Department Care Team (Late st Contact Info) Description 05/30/2024 Telephone [facility] MEDICINE [address] [place] [address] Sesar Pereyra MD [address] [place] [address] Social History Tobacco Use Types Packs/Day Years [...] Description 09/11/2024 10:30 AM EDT Office Visit [facility] MED & PEDS [address] [place] [address] Sesar Pereyra MD [address] [place] [address] documented as of this encounter Visit Diagnoses Not on filedocumented in this encounter Additional Health Concerns Assessment Noted Time PHQ-9 Depression Total Score: 16 024 10:59 AM EDT documented as of this encounter Care Teams Rental Representative Relationship Specialty Start Date End Date Sesar Pereyra MD [address] [place] [address] PCP - General Internal Medicine 03/01/21 [facility] 03/22/24 documented as of this encounter
--- OUTSIDE RECORDS SUMMARY | 2024-06-19 15:06 | XMS_ITS | Encounter Summary ---
Author Organization [facility] Address [address] [place] [address] Care Team Providers Care Ceo & Founder Name Role Phone Yolande Nicholas DO Primary Care Pro vider Unavailable Anuj Priest DO Primary Care Provider [facility], Pcp Primary Care Provider [facility]are health e Encounter Details Date Type Department Care Team Description 04/04/2020 Pt. Non Urgent Medic al Question Adult Medicine [address] [address] Yolande Nicholas DO Social History Tobacco Use [...] 04/04/2020 12:08 PM EST Subject: erictile disfuction [id number] 30ct. documented in this encounter Plan of Treatment Not on file documented as of this encounter Visit Diagnoses Not on filedocumented in this encounter Care Teams Ceo & Founder Relationship Specialty Start Date End Date Yolande Nicholas DO PCP - General Internal Medicine 12/03/18 10/08/20 Anuj Priest DO PCP - General Internal Medicine 10/09/20 2 [facility], Pcp PCP - General Internal Medicine 06/17/21 documented as of this encounter
--- OUTSIDE RECORDS SUMMARY | 2024-06-19 15:06 | XMS_ITS | Encounter Summary ---
Author Organization [facility] Address [address] [place] [address] Care Team Providers Care Automobile Carpets Molder Name Role Phone Yolande Nicholas DO Primary Care Pro vider Unavailable Anuj Priest DO Primary Care Provider [facility], Pcp Primary Care Provider Unavailabl e Reason for Visit * Reason Onset Date Comments Provider Call Back 04/29/2019 Encounter Details Date Type Department Care Team Description 04/29/2019 Telephone Adult [address] [address] Yolande Nicholas DO Provider Call Back Social [...] EST Im not aware of any in [place] * Telephone Encounter - Minerva Kan R.N. - 04/29/2019 3:[address] Yolande Gomez Are you aware of a detox in [facility] ? * Telephone Encounter - Lonny Lazarus - 04/29/2019 1:15 PM EST Patient relapsed for alcohol abuse 3 days ago and requests to speak to Dr. Yolande Gomez or her team. Patient states that he does want to get better. The patient says Dr. Alvarez mentioned a rehab facility in [place] last time, but he cannot remember the address, phone number, or name of the facility. documented in this encounter Plan of Treatment Not on file documented as of this encounter Visit Diagnoses Not on filedocumented in this encounter Care Teams Automobile Carpets Molder Relationship Specialty Start Date End Date Yolande Nicholas DO PCP - General Internal Medicine 12/03/18 10/08/20 Anuj Priest DO PCP - General Internal Medicine 10/09/[address] [place] [address], Pcp PCP - General Internal Medicine 06/17/21 documented as of this encounter
--- OUTSIDE RECORDS SUMMARY | 2024-06-19 15:06 | XMS_ITS | Encounter Summary ---
Author Organization [facility] Address [address] [place] [address] Care Team Providers Care Seaman Name Role Phone Yolande Nicholas DO Primary Care Pro vider Unavailable Anuj Priest DO Primary Care Provider [facility], Pcp Primary Care Provider Unavailabl e Reason for Visit * Reason Onset Date Comments Faxed Refill 06/06/2019 HYDROXYZINE Encounter Details Date Type Department Care Team Description 06/06/2019 Refill Adult Medicine [address] [address] Yolande Nicholas DO Faxed Refill (HYDROXYZINE ) [...] MEDICARE / Plan: MEDICARE FFS $5 [facility] [id number] / Product Type: MEDICARE [id number] documented in this encounter Plan of Treatment Not on file documented as of this encounter Visit Diagnoses Not on filedocumented in this encounter Care Teams Seaman Relationship Specialty Start Date End Date Yolande Nicholas DO PCP - General Internal Medicine 12/03/18 10/08/20 Anuj Priest DO PCP - General Internal Medicine 10/09/[address] [place] [address], Pcp PCP - General Internal Medicine 06/17/21 documented as of this encounter
--- OUTSIDE RECORDS SUMMARY | 2024-06-19 15:06 | XMS_ITS | Clinical Summary ---
Author Organization Unknown Care Team Providers Care Business Intelligence Reporting Analyst Name Role Phone MARCO RAMIREZ, POOJA Unavailable Unavailabl e JIMENEZ PT, COURTNEY Unavailable Unavailable SPAFFORD OT, DAGO Unavailable Unavailable CONDINO FERNY/CALZADA, ANGUS Unavailable Unav ailable FECTEAU FINISHING TUNNEL OPERATOR, JANETT Unavailable Unavailable LESLYE RN, DAGOBERTO Unavailable Unavailab abraham CARRION SHIPPING ASSOCIATE, ANTONIO Unavailable Unavailable JOSE RAFAEL SKAGGSN, YORDAN Unavailable Unavail able Payers Payer Name Policy Type Policy Number Effective Date Expira tion Date [facility] [id number] Problems Condition Name Condition Details Condition Category [...] 2023-05 00:00: 00 ATHSCL HEART DISEASE OF [place] CORONARY ARTERY W/O ANG PCTRS Active 05-01 [...] HISTORY OF COVID-19 Active 2023-05 00:00: 00 [facility] (CURRENT) USE OF ANTICOAGULAN TS Active 2023-05 [...] 2023-05 00:00: 00 05-16 23:59 :00 No [id number] PAIN 15 mg EVERY 6 HOURS NEEDED 15 mg EVERY 6 HOURS NEEDED (route: oral) Med Classific ation: Analgesic , Anti-infl ammatory or Antipyret ic clonazepam 0.5 mg tablet 2023-05 00:00: 00 Yes [id number] ANXIETY 0.5 mg 2 TIMES DAILY 0.5 mg 2 TIMES DAILY (route: oral) Med Classific ation: Central Nervous System Agents lisinopril 40 mg tablet 2023-05 00:00: 00 03-21 23:59 :00 No [id number] CAD 40 mg DAILY 40 mg DAILY (route: oral) Med Classific ation: Cardiovas cular Therapy Agents atorvastati n 80 mg tablet 2023-05 00:00: 00 Yes [id number] HYPERTENSIO N 80 mg DAILY 80 mg DAILY (route: oral) Med Classific ation: Cardiovas cular Therapy Agents cilostazol 50 mg tablet 2023-05 00:00: 00 Yes [id number] HYPERTENSIO N 50 mg 2 TIMES DAILY 50 mg 2 TIMES DAILY (route: oral) Med Classific ation: Hematolog ical Agents clopidogrel 75 mg tablet 2023-05 00:00: 00 03-21 23:59 :00 No [id number] CORONARY ARTERY DISEASE 75 mg DAILY 75 mg DAILY (route: oral) Med Classific ation: Hematolog ical Agents Eliquis 5 mg tablet 2023-05 00:00: 00 Yes [id number] ANTI ARRHYTHMIC 5 mg 2 TIMES DAILY 5 mg 2 TIMES DAILY (route: oral) Med Classific ation: Hematolog ical Agents furosemide 40 mg tablet 2023-05 00:00: 00 03-21 23:59 :00 No [id number] BPH 40 mg DAILY 40 mg DAILY (route: oral) Alternate Route: INTRA-MUS CULAR. Med Classific ation: Cardiovas cular Therapy Agents metoprolol tartrate 50 mg tablet 2023-05 00:00: 00 03-22 23:59 :00 No [id number] CAD 50 mg DAILY 50 mg DAILY (route: oral) Med Classific ation: Cardiovas cular Therapy Agents quetiapine 25 mg tablet 2023-05 00:00: 00 Yes [id number] MOOD STABILIZER 25 mg 2 TIMES DAILY 25 mg 2 TIMES DAILY (route: oral) Med Classific ation: Central Nervous System Agents sertraline 50 mg tablet 2023-05 00:00: 00 Yes [id number] MOOD STABILIZER 50 mg DAILY 50 mg DAILY (route: oral) Med Classific ation: Central Nervous System Agents tamsulosin 0.4 mg capsule 2023-05 00:00: 00 Yes [id number] BPH 0.4 mg DAILY 0.4 mg DAILY (route: oral) Med Classific ation: Genitouri nary Therapy docusate sodium 100 mg tablet 2023-05 00:00: 00 Yes [id number] CONSTIPATIO N 100 mg DAILY 100 mg DAILY (route: oral) Med Classific ation: Gastroint estinal Therapy Agents gabapentin 100 mg capsule 2023-05 00:00: 00 Yes [id number] PAIN 1-3 capsule BEDTIME 1-3 capsule BEDTIME (route: oral) Med Classific ation: Central Nervous System Agents metoprolol tartrate 25 mg tablet 2023-05 00:00: 00 03-27 16:09 :43.1 53 No [id number] HYPERTENSIO N 25 mg 2 TIMES DAILY 25 mg 2 TIMES DAILY (route: oral) Med Classific ation: Cardiovas cular Therapy Agents Multaq 400 mg tablet 2023-05 00:00: 00 Yes [id number] ANTIARRHYTH MICHAEL 400 mg 2 TIMES DAILY 400 mg 2 TIMES DAILY (route: oral) Med Classific ation: Cardiovas cular Therapy Agents furosemide 40 mg tablet 2023-05 00:00: 00 Yes [id number] edema 1 tablet DAILY 1 tablet DAILY (route: oral) Med Classific ation: Cardiovas cular Therapy Agents dextroamphe tamine-amph etamine 7.5 mg tablet 2023-05 00:00: 00 Yes [id number] attention 1 tablet DAILY 1 tablet DAILY (route: oral) Med Classific ation: Central Nervous System Agents metoprolol tartrate 25 mg tablet 2023-05 00:00: 00 Yes [id number] heart rate 0.5 tablet 2 TIMES DAILY 0.5 tablet 2 TIMES DAILY (route: oral) Med Classific ation: Cardiovas cular Therapy Agents cephalexin 500 mg capsule 2023-05 00:00: 00 04-10 23:59 :00 No [id number] CELLULITIS LLL 500 mg 4 TIMES DAILY 500 mg 4 TIMES DAILY (route: oral) Med Classific ation: Anti-Infe ctive Agents hydralazine 25 mg tablet 2023-05 00:00: 00 Yes [id number] HTN 25 mg 2 TIMES DAILY 25 [...] CONSULTING PHYSICIANS. RN TO OBSERVE AND ASSESS, GAS DISPENSER/SCHOOL BUS MECHANIC TO OBSERVE FOR RISK FOR FALLS AND INSTRUCT IN FALL PREVENTION, HOME SAFETY, MEDICATION MANAGEMENT, INFECTION PREVENTION, AND NUTRITION MANAGEMENT. RN/GAS DISPENSER/SCHOOL BUS MECHANIC NURSE MAY PERFORM O2 SATURATION LEVEL ON ADMISSION AND PRN FOR RN TO ASSESS/GAS DISPENSER TO OBSERVE PATIENT, WITH NOTIFICATION TO THE PHYSICIAN IF SATURATION IS 90% IN THE ABSENCE OF MORE SPECIFIC PARAMETERS FROM THE PHYSICIAN. AGENCY MAY PERFORM A RESUMPTION OF CARE VISIT FOLLOWING ANY HOSPITAL ADMISSION. RN/GAS DISPENSER/SCHOOL BUS MECHANIC TO MONITOR CO-MORBID CONDITIONS LISTED ON THE PLAN OF CARE AND ANY NEW CONDITIONS THAT PRESENT THEMSELVES DURING THIS EPISODE TO IDENTIFY CHANGES AND INTERVENE TO MINIMIZE COMPLICATIONS. [code = RN TO OBSERVE, ASSESS, EVALUATE, AND DEVELOP AN INDIVIDUALIZED PLAN OF CARE. AGENCY MAY ACCEPT ORDERS FROM CONSULTING PHYSICIANS. RN TO OBSERVE AND ASSESS, GAS DISPENSER/SCHOOL BUS MECHANIC TO OBSERVE FOR RISK FOR FALLS AND INSTRUCT IN FALL PREVENTION, HOME SAFETY, MEDICATION MANAGEMENT, INFECTION PREVENTION, AND NUTRITION MANAGEMENT. RN/GAS DISPENSER/SCHOOL BUS MECHANIC NURSE MAY PERFORM O2 SATURATION LEVEL ON ADMISSION AND PRN FOR RN TO ASSESS/GAS DISPENSER TO OBSERVE PATIENT, WITH NOTIFICATION TO THE PHYSICIAN IF SATURATION IS 90% IN THE ABSENCE OF MORE SPECIFIC PARAMETERS FROM THE PHYSICIAN. AGENCY MAY PERFORM A RESUMPTION OF CARE VISIT FOLLOWING ANY HOSPITAL ADMISSION. RN/GAS DISPENSER/SCHOOL BUS MECHANIC TO MONITOR CO-MORBID CONDITIONS LISTED ON THE PLAN OF CARE AND ANY NEW CONDITIONS THAT PRESENT THEMSELVES DURING THIS EPISODE TO IDENTIFY CHANGES AND INTERVENE TO MINIMIZE COMPLICATIONS.] Future Scheduled Test MEDICATION MANAGEMENT; RN/GAS DISPENSER/SCHOOL BUS MECHANIC TO REVIEW MEDICATIONS FOR INTERACTIONS, EFFECTIVENESS OF DRUG THERAPY, AND SIGNS/SYMPTOMS OF ADVERSE REACTIONS. MAY INSTRUCT AND REINFORCE MEDICATION TEACHING RELATED TO THE USE OF MEDICATIONS, DOSAGE, FREQUENCY, PURPOSE, SIDE EFFECTS, AND TO REPORT COMPLICATIONS. HELP SET UP BUBBLE PACKS [code = MEDICATION MANAGEMENT; RN/GAS DISPENSER/SCHOOL BUS MECHANIC TO REVIEW MEDICATIONS FOR INTERACTIONS, EFFECTIVENESS OF DRUG THERAPY, AND SIGNS/SYMPTOMS OF ADVERSE REACTIONS. MAY INSTRUCT AND REINFORCE MEDICATION TEACHING RELATED TO THE USE OF MEDICATIONS, DOSAGE, FREQUENCY, PURPOSE, SIDE EFFECTS, AND TO REPORT COMPLICATIONS. HELP SET UP BUBBLE PACKS] Future Scheduled Test RISK FOR H OSPITALIZATION; RN TO ASSESS/TEACH, SCHOOL BUS MECHANIC/GAS DISPENSER TO OBSERVE/TEACH PATIENT/CAREGIVER ON RISK FOR HOSPITALIZATION/EMERGENCY ROOM VISITS, TEACH SIGNS AND SYMPTOMS THAT PUT PATIENT AT RISK, WHEN TO NOTIFY NURSE/PHYSICIAN OF COMPLICATIONS/DECLINE, AND WHEN TO CALL 911. [code = RISK FOR HOSPITALIZATION; RN TO ASSESS/TEACH, SCHOOL BUS MECHANIC/GAS DISPENSER TO OBSERVE/TEACH PATIENT/CAREGIVER ON RISK FOR HOSPITALIZATION/EMERGENCY ROOM VISITS, TEACH SIGNS AND SYMPTOMS THAT PUT PATIENT AT RISK, WHEN TO NOTIFY NURSE/PHYSICIAN OF COMPLICATIONS/DECLINE, AND WHEN TO CALL 911.] Future Scheduled Test CARDIOVASC ULAR SYSTEM; RN TO ASSESS/TEACH, GAS DISPENSER/SCHOOL BUS MECHANIC TO OBSERVE/TEACH RELATED TO ALTERED CARDIOVASCULAR STATUS TO MINIMIZE COMPLICATIONS AND REDUCE HOSPITALIZATION. [code = CARDIOVASCULAR SYSTEM; RN TO ASSESS/TEACH, GAS DISPENSER/SCHOOL BUS MECHANIC TO OBSERVE/TEACH RELATED TO ALTERED CARDIOVASCULAR STATUS TO MINIMIZE COMPLICATIONS AND REDUCE HOSPITALIZATION.] Future Scheduled Test HYPERTENSI ON MANAGEMENT; RN TO ASSESS AND TEACH, GAS DISPENSER/SCHOOL BUS MECHANIC TO OBSERVE AND TEACH WARNING SIGNS AND SYMPTOMS TO AVOID HOSPITALIZATION. [code = HYPERTENSION MANAGEMENT; RN TO ASSESS AND TEACH, GAS DISPENSER/SCHOOL BUS MECHANIC TO OBSERVE AND TEACH WARNING SIGNS AND SYMPTOMS TO AVOID HOSPITALIZATION.] Future Scheduled Test ARRHYTHMIA MANAGEMENT; RN TO ASSESS AND TEACH, GAS DISPENSER/SCHOOL BUS MECHANIC TO OBSERVE AND TEACH WARNING SIGNS AND SYMPTOMS TO AVOID HOSPITALIZATION. [code = ARRHYTHMIA MANAGEMENT; RN TO ASSESS AND TEACH, GAS DISPENSER/SCHOOL BUS MECHANIC TO OBSERVE AND TEACH WARNING SIGNS AND SYMPTOMS TO AVOID HOSPITALIZATION.] Future Scheduled Test SKIN INTEG RITY RN TO ASSESS AND TEACH, GAS DISPENSER/SCHOOL BUS MECHANIC TO OBSERVE AND TEACH INTEGUMENTARY STATUS TO IDENTIFY CHANGES AND INTERVENE TO MINIMIZE COMPLICATIONS. PROVIDE SKILLED TEACHING OF GENERAL WOUND AND SKIN CARE AND PREVENTION RELATED TO POTENTIAL FOR ALTERED SKIN INTEGRITY [code = SKIN INTEGRITY RN TO ASSESS AND TEACH, GAS DISPENSER/SCHOOL BUS MECHANIC TO OBSERVE AND TEACH INTEGUMENTARY STATUS TO IDENTIFY CHANGES AND INTERVENE TO MINIMIZE COMPLICATIONS. PROVIDE SKILLED TEACHING OF GENERAL WOUND AND SKIN CARE AND PREVENTION RELATED TO POTENTIAL FOR ALTERED SKIN INTEGRITY ] Future Scheduled Test PAIN MANAG EMENT; RN TO ASSESS AND TEACH, SCHOOL BUS MECHANIC/GAS DISPENSER TO OBSERVE AND TEACH AND PROVIDE EDUCATION ON PAIN MANAGEMENT TECHNIQUES. [code = PAIN MANAGEMENT; RN TO ASSESS AND TEACH, SCHOOL BUS MECHANIC/GAS DISPENSER TO OBSERVE AND TEACH AND PROVIDE EDUCATION ON PAIN MANAGEMENT TECHNIQUES.] Future Scheduled Test FALL REDUC TION MANAGEMENT; RN TO ASSESS AND OBSERVE, GAS DISPENSER/SCHOOL BUS MECHANIC TO OBSERVE FALL RISK FACTORS AND EDUCATE PATIENT/CAREGIVER ON STRATEGIES TO MINIMIZE THE RISK OF FALLING. [code = FALL REDUCTION MANAGEMENT; RN TO ASSESS AND OBSERVE, GAS DISPENSER/SCHOOL BUS MECHANIC TO OBSERVE FALL RISK FACTORS AND EDUCATE PATIENT/CAREGIVER ON STRATEGIES TO MINIMIZE THE RISK OF FALLING.] Future Scheduled Test RESPIRATOR Y SYSTEM MANAGEMENT; RN TO ASSESS AND TEACH, GAS DISPENSER/SCHOOL BUS MECHANIC TO OBSERVE AND TEACH RELATED TO ALTERED RESPIRATORY STATUS TO MINIMIZE COMPLICATIONS AND REDUCE HOSPITALIZATION. [code = RESPIRATORY SYSTEM MANAGEMENT; RN TO ASSESS AND TEACH, GAS DISPENSER/SCHOOL BUS MECHANIC TO OBSERVE AND TEACH RELATED TO [...] End Date/Time Encounter Type Admission Type Attending [facility] Care Department Encounter ID Discharge Date Discharge Status Discharge Condition Discharge Reason Percent Goals Met 2024-03-22 00:00:00 2024-07-19 00:00:00 Outpatient JOSE MARIARTIFIC DAGOBERTO [facility] [id number]
--- OUTSIDE RECORDS SUMMARY | 2024-06-19 15:06 | XMS_ITS | Encounter Summary ---
Author Organization [employer] Address [address] [facility] 7 [place] [address] Care Team Providers Care Front Desk Monitor Name Role Phone Sesar Pereyra MD Primary Care Provider [phone] Reason for Visit * Reason Comments Med Refill Encounter Details Date Type Department Care Team ([facility] Contact Info) Description 06/10/2022 Refill [facility] MED & PEDS [address] [place] [address] Sesar Pereyra MD [address] [place] [address] Primary insomnia Social History Tobacco Use Types [...] ([facility] Contact Info) Description 09/11/2024 10:30 AM EDT Office Visit [facility] MED & PEDS [address] [place] [address] Sesar Pereyra MD [address] [place] [address] documented as of this encounter Visit Diagnoses Diagnosis Primary insomnia Persistent disorder of initiating or maintaining sleep documented in this encounter Care Teams Front Desk Monitor Relationship Specialty Start Date End Date Sesar Pereyra MD [address] [place] [address] PCP - General Internal Medicine 03/01/21 [facility] 03/22/24 documented as of this encounter
--- OUTSIDE RECORDS SUMMARY | 2024-06-19 15:06 | XMS_ITS | Encounter Summary ---
Author Organization [employer] Address [address] [facility] [address] [place] [address] Care Team Providers Care Aluminum Pourer Name Role Phone Sesar Pereyra MD Primary Care Provider [phone]- [phone] Reason for Visit * Reason Onset Date Comments Med Refill 04/18/2024 Encounter Details Date Type Department Care Team ([facility] st Contact Info) Description 04/18/2024 Telephone [facility] MEDICINE [address] [place] [address] Sesar Pereyra MD [address] [place] [address] Med Refill Social History Tobacco Use Types [...] needing refill : To be sent to: [facility] - [place], [place] - [address] [place] [address] STEET documented in this encounter Plan of Treatment Upcoming Encounters Date Type Department Care Team (Late st Contact Info) Description 09/11/2024 10:30 AM EDT Office Visit [facility] MED & PEDS [address] [place] [address] Sesar Pereyra MD [address] [place] [address] documented as of this encounter Visit Diagnoses Not on filedocumented in this encounter Additional Health Concerns Assessment Noted Time PHQ-9 Depression Total Score: 16 024 10:59 AM EDT documented as of this encounter Care Teams Aluminum Pourer Relationship Specialty Start Date End Date Sesar Pereyra MD [address] [place] [address] PCP - General Internal Medicine 03/01/21 [facility] 03/22/24 documented as of this encounter
--- OUTSIDE RECORDS SUMMARY | 2024-06-19 15:06 | XMS_ITS | Encounter Summary ---
Author Organization [employer] [facility] Address [address] [place] [address] Care Team Providers Care Bookkeeping Machine Mechanic Name Role Phone Yolande Nicholas DO Primary Care Pro vider Unavailable Anuj Priest DO Primary Care Provider Judy álvarez [facility], Pcp Primary Care Provider Unavailabl e Encounter Details Date Type Department Care Team Description 03/06/2019 Negative Spotter Report Medical Records [address] [place] [address] Adilia Navarro PA-C Social History Tobacco Use [...] on filedocumented in this encounter Care Teams Bookkeeping Machine Mechanic Relationship Specialty Start Date End Date Yolande Nicholas DO PCP - General Internal Medicine 12/03/18 10/08/20 Anuj Priest DO PCP - General Internal Medicine 10/09/20 Jj, Pcp PCP - General Internal Medicine 06/17/21 documented as of this encounter
--- NOTE | 2024-06-19 15:29 | AM.OFFWIN_ITS ---
Intake Vital Signs 06/19/24 15:30 Weight 248 lb BP 140/90 H Blood Pressure Location Rt brachial Position Sitting Pulse 62 Pulse Source Pulse Oximeter Pulse Oximetry (%) 97 Oxygen Delivery Method Room Air Intake Visit Reasons: EP Fall on ice, broken shoulder??? Intake Note: Patient here because he fell on the ice and is now having left shoulder pain now. Patient Tobacco Use Status: Former Tobacco user Allergies No Known Allergies [No Known Allergies*] Allergy (Verified 06/19/24 15:34) Do you need a note to return to daycare/school/sports/work: No HPI HPI Comments History of Present Illness Details He presents to office with L shoulder pain Patient was getting into car today and slipped on the ice No HT or LOC He fell onto L side onto his L elbow Pain located at L shoulder Limited ROM due to making pain worse He denies making any medicine for it Pain level 10/10 He is on Eliquis for Afib hx Denies CP or SOB PFSH Medical History Coronary artery disease Hypersomnia Snoring Neuropathy Atherosclerotic cardiovascular disease History of alcohol abuse History of COVID-19 On beta jose at home COPD (chronic obstructive pulmonary disease) On anticoagulant therapy History of atrial fibrillation PVD (peripheral vascular disease) Renal cell carcinoma Hypertension Depression Anxiety Diverticulitis Surgical History H/O cardiac catheterization History of colectomy S/P femoral-femoral bypass surgery Social History Household Members: Significant Other Housing: House Do you presently have visiting nurse or other home services: No Alcohol intake: never Patient Tobacco Use Status: Former Tobacco user Tobacco use type: Cigarette Substance Use Type: Marijuana Advance Directives Date on File: 06/09/21 service: Yes Current occupational status: retired Current occupation: right hand dominant Review of Systems Const Denies chills, Denies fever(s) and Denies headache(s) Eyes Denies change in vision ENT Denies dizziness and Denies headache(s) Card Denies chest pain, Denies syncope and Denies dyspnea Resp Denies dyspnea GI Denies nausea and Denies vomiting Denies urinary incontinence Musc Reports arthralgias (L shoulder) and Denies tingling Skin/Breast Denies rash Neuro Denies dizziness, Denies syncope, Denies headache(s), Denies tingling and Denies paresthesias Physical Exam Vital Signs: Last Vital Signs Pulse 62 06/19/24 15:30 BP 140/90 H 06/19/24 15:30 Pulse Ox 97 06/19/24 15:30 Oxygen Delivery Method Room Air 06/19/24 15:30 General: Non-toxic, NAD. Speaking full sentences. Skin: Warm dry throughout. No large ecchymosis or erythema to L elbow or shoulder. No step off deformity noted Eye: EOMI, PERRL HENT:Bilateral canals clear. TM non-erythematous, non-bulging. No TM perforation or hemotympanum noted. Respiratory: CTA bilaterally. No wheezes, rales or rhonchi Cardiac: Regular rate. No murmur. Radial pulse intact LUE MSK: No mdiline spinal ttp. + ttp L anterior shoulder and lateral humeral head. Limited ROM L shoulder in all planes. No bony ttp L elbow. + full ROM L elbow with flexion/extension. No L wrist ttp. Neurology: Alert. No aphasia or facial droop. Gait without abnormality. + sensation intact digits LUE Psych: Good mood and affect Assessment & Plan Assessment & Plan (1) Shoulder pain, left: Code(s): M25.512 - Pain in left shoulder Qualifiers: Chronicity: acute Qualified Code(s): M25.512 - Pain in left shoulder Plan: Patient seen and evaluated. XRay L shoulder: anterio-inferior glenohumeral joint dislocation, communuted fx of superior/inferior glenoid and hill sachs impact injury Pt and his guest informed of results Placed in sling and sent to ER Expect called to [facility]. Patient gave verbal understanding and had no additional questions or concerns at time of discharge All questions answered Orders: Orders XR shoulder LT min 2V Today M25.512 - Pain in left shoulder Coding Level of Care Code Est Pt Level 4 (20602) Diagnoses Acute pain of left shoulder M25.512 Chronicity: acute
[2024-06-19 15:30] VITALS: BP 140/90; PULSE 62; O2SAT 97
== END 2024-06-19 16:42 | disposition home or self-care (01) ==
PROVIDERS: PCP Internal Medicine; Visit Provider Physician Assistant
DX: M25.512 Pain in left shoulder (principal)

== ENCOUNTER → 2024-06-19 15:01 | Outpatient (BNVA) | payer MEDICARE, MEDICAID, SELFPAY | PROVIDERS: PCP Internal Medicine ==

== ENCOUNTER 2024-06-19 15:52 | Outpatient (REF) | payer MEDICARE, MEDICAID, SELFPAY ==
--- NOTE | ~2024-06-19 | XR_ITS ---
EXAMINATION: XR SHOULDER, LEFT CLINICAL INFORMATION: M25.512 - Pain in left shoulder COMPARISON: None available. TECHNIQUE: AP external rotation, Grashey, scapular Y, and axillary views of the left shoulder. FINDINGS: There is anteroinferior dislocation of the glenohumeral joint. There is a fracture of the inferior glenoid which is displaced slightly medially by approximately 11 mm. This is likely comminuted. There may be a subtle Hill-Sachs impaction injury. No additional fractures seen. The AC joint is intact. Widening of the subacromial space. No soft tissue abnormality. XR/XR shoulder LT min 2V IMPRESSION: 1. Anteroinferior glenohumeral joint dislocation. 2. Comminuted fracture of the superior and inferior glenoid. 3. Probable Hill-Sachs impaction injury. Electronically signed by: Jaquan Guillen MD 06/19/2024 04:21 PM [facility]
--- OUTSIDE RECORDS SUMMARY | 2024-06-19 15:54 | XMS_ITS | Encounter Summary ---
Author Organization [facility] Address [address] [place] [address] Care Team Providers Care Parquet Floor Layer Name Role Phone Yolande Nicholas DO Primary Care Pro vider Unavailable Anuj Priest DO Primary Care Provider [facility], Pcp Primary Care Provider Unavailabl e Reason for Visit * Reason Onset Date Comments Faxed Order 09/20/2019 Encounter Details Date Type Department Care Team Description 09/20/2019 Telephone Adult [address] [address] Yolande Nicholas DO Faxed Order Social History [...] Miscellaneous Notes * Telephone Encounter - Delfina eBrnabe - 09/20/2019 11:29 AM EDT Orders from [facility] to be signed and faxed back to [phone] . documented in this encounter Plan of Treatment Not on file documented as of this encounter Visit Diagnoses Not on filedocumented in this encounter Care Teams Parquet Floor Layer Relationship Specialty Start Date End Date Yolande Nicholas DO PCP - General Internal Medicine 12/03/18 10/08/20 Anuj Priest DO PCP - General Internal Medicine 10/09/[address] [place] [address], Pcp PCP - General Internal Medicine 06/17/21 documented as of this encounter
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
--- OUTSIDE RECORDS SUMMARY | 2024-06-19 15:54 | XMS_ITS | Encounter Summary ---
Author Organization [facility] Address [address] [place] [address] Care Team Providers Care Salon Designer Name Role Phone Yolande Nicholas DO Primary Care Pro vider Unavailable Anuj Priest DO Primary Care Provider [facility], Pcp Primary Care Provider Unavailabl e Reason for Visit * Reason Onset Date Comments Faxed Refill 09/10/2019 Encounter Details Date Type Department Care Team Description 09/10/2019 Refill Adult Medicine [address] [address] Yolande Nicholas DO Faxed Refill Social History [...] N/A Patients current insurance carrier is: Payor: [facility] - [facility]IC[facility] / Plan: MEDICARE FFS [facility]5 [facility] [id number] / Product Type: MEDICARE [id number] documented in this encounter Plan of Treatment Not on file documented as of this encounter Visit Diagnoses Not on filedocumented in this encounter Care Teams Salon Designer Relationship Specialty Start Date End Date Yolande Nicholas DO PCP - General Internal Medicine 12/03/18 10/08/20 Anuj Priest DO PCP - General Internal Medicine 10/09/20 2 [facility], Pcp PCP - General Internal Medicine 06/17/21 documented as of this encounter
--- OUTSIDE RECORDS SUMMARY | 2024-06-19 15:55 | XMS_ITS | Encounter Summary ---
[facility] Address [address] [place] [address] Care Team Providers Care Jewel Diameter Gauger Name Role Phone Yolande Nicholas DO Primary Care Pro vider Unavailable Anuj Priest DO Primary Care Provider Judy Gardner, Pcp Primary Care Provider Unavailabl e Encounter Details Date Type Department Care Team Description 09/26/2019 Telephone Adult Medicine B - [place] [address] [place] [address] Teri Layton MD Social History Tobacco Use Types Packs/Day [...] on filedocumented in this encounter Care Teams Jewel Diameter Gauger Relationship Specialty Start Date End Date Yloande Nicholas DO PCP - General Internal Medicine 12/03/18 10/08/20 Anuj Priest DO PCP - General Internal Medicine 10/09/2006/16/ 2 Jj, Pcp PCP - General Internal Medicine 06/17/21 documented as of this encounter
--- OUTSIDE RECORDS SUMMARY | 2024-06-19 15:55 | XMS_ITS | Encounter Summary ---
Author Organization [facility] Address [address] [place] [address] Care Team Providers Care Stem Cutter Name Role Phone Ghassan Burciaga MD Primary Care Provider Unavail able Pierre Arevalo MD Primary Care Provider Judy vailable Gerson Dawson MD Primary Care Provider Unavail able [facility], Pcp Primary Care Provider Unavailabl e Coleman Mccarthy MD Primary Care Provider Unavaila Ayo Demarco MD Primary Care Provider [phone] Annalee Jones MD Primary Care Provider Un available Pascual Nicholasabela DO Primary Care Pro vider Unavailable Anuj Priest DO Primary Care Provider Judy vailable [facility], Pcp Primary Care Provider Unavailabl e Encounter Details Date Type Department Care Team Description 01/16/2007 Hospital Medical Records [address] [place] [address] Tyler Bloom MD Social History Tobacco Use [...] on filedocumented in this encounter Care Teams Stem Cutter Relationship Specialty Start Date End Date Ghassan Burciaga MD PCP - General 07/24/00 05/06/13 Pierre Arevalo MD PCP - General Internal Medicine 05/07/13 4 Gerson Dawson MD PCP - General Internal Medicine 01/30/14 03/20/14 [facility], Pcp PCP - General Internal Medicine 03/21/14 05/06/14 Coleman Mccarthy MD PCP - General Internal Medicine 05/07/14 07/18/16 Ayo Carpio MD [address] [place], [place] [id number] PCP - General Internal Medicine 07/19/16 01/05/17 Annalee Jones MD [address] [place], [place] [id number] PCP - General Internal Medicine 01/06/17 12/02/18 Yolande Nicholas, DO [address] [place] [address] PCP - General Internal Medicine 12/03/18 10/08/20 Anuj Priest, [address] [place] [address] PCP - General Internal Medicine 10/09/20 06/16/21 [facility], Pcp PCP - General Internal Medicine 06/17/21 documented as of this encounter
--- OUTSIDE RECORDS SUMMARY | 2024-06-19 15:55 | XMS_ITS | Encounter Summary ---
Author Organization [facility] Address [address] [place] [address] Care Team Providers Care Separator Operator Name Role Phone Yolande Nicholas DO Primary Care Pro vider Unavailable Anuj Priest DO Primary Care Provider [facility], Pcp Primary Care Provider Unavailabl e Reason for Visit * Reason Onset Date Comments Faxed Order 01/14/2020 Encounter Details Date Type Department Care Team Description 01/14/2020 Telephone Adult [address] [address] Yolande Nicholas DO Faxed Order Social History [...] Dr. Yolande Gomez's signature - tracking # [id number], [id number] documented in this encounter Plan of Treatment Not on file documented as of this encounter Visit Diagnoses Not on filedocumented in this encounter Care Teams Separator Operator Relationship Specialty Start Date End Date Yolande Nicholas DO PCP - General Internal Medicine 12/03/18 10/08/20 Anuj Priest DO PCP - General Internal Medicine 10/09/20 2 [facility], Pcp PCP - General Internal Medicine 06/17/21 documented as of this encounter
--- OUTSIDE RECORDS SUMMARY | 2024-06-19 15:55 | XMS_ITS | Encounter Summary ---
Author Organization [facility] Address [address] [place] [address] Care Team Providers Care Nutritionists Name Role Phone Ghassan Burciaga MD Primary Care Provider Unavail able Pierre Arevalo MD Primary Care Provider Judy vailable Gerson Dawson MD Primary Care Provider Unavail able [facility], Pcp Primary Care Provider Unavailabl e Coleman Mccarthy MD Primary Care Provider Unavaila Ayo Demarco MD Primary Care Provider [phone] Annalee Jones MD Primary Care Provider Un available Pascual Nicholasabela DO Primary Care Pro vider Unavailable Anuj Priest DO Primary Care Provider Judy vailable [facility], Pcp Primary Care Provider Unavailabl e Encounter Details Date Type Department Care Team Description 08/29/2011 Release of Information Medical Records [address] [place] [id number] Abstract, Provider Social History Tobacco Use Types [...] on filedocumented in this encounter Care Teams Nutritionists Relationship Specialty Start Date End Date Ghassan Burciaga MD PCP - General 07/24/00 05/06/13 Pierre Arevalo MD PCP - General Internal Medicine 05/07/13 4 Gerson Dawson MD PCP - General Internal Medicine 01/30/14 03/20/14 [facility], Pcp PCP - General Internal Medicine 03/21/14 05/06/14 Coleman Mccarthy MD PCP - General Internal Medicine 05/07/14 07/18/16 Ayo Carpio MD [address] [place], [place] [id number] PCP - General Internal Medicine 07/19/16 01/05/17 Annalee Jones MD [address] [place], [place] [id number] PCP - General Internal Medicine 01/06/17 12/02/18 Yolande Nicholas DO [address] [place] [address] PCP - General Internal Medicine 12/03/18 10/08/20 Anuj Priest DO [address] [place] [address] PCP - General Internal Medicine 10/09/20 06/16/21 [facility], Pcp PCP - General Internal Medicine 06/17/21 documented as of this encounter
--- OUTSIDE RECORDS SUMMARY | 2024-06-19 15:55 | XMS_ITS | Encounter Summary ---
Author Organization [employer] Address [address] [facility] 7[address] [place] [address] Care Team Providers Care Clean Rice Broker Name Role Phone Sesar Pereyra MD Primary Care Provider [phone] Encounter Details Date Type Department Care Team [...] 10:30 AM EDT Office Visit [facility] [address] [place] [address] Sesar Pereyra MD [address] [place] [address] documented as of this encounter Visit Diagnoses Not on filedocumented in this encounter Additional Health Concerns Assessment Noted Time PHQ-9 Depression Total Score: 16 024 10:59 AM EDT documented as of this encounter Care Teams Clean Rice Broker Relationship Specialty Start Date End Date Sesar Pereyra MD [address] [place] [address] PCP - General Internal Medicine [facility] documented as of this encounter
--- OUTSIDE RECORDS SUMMARY | 2024-06-19 15:55 | XMS_ITS | Encounter Summary ---
Author Organization [facility] Address [address] [place] [address] Care Team Providers Care Prep Room Supervisor Name Role Phone Ayo Carpio MD Primary Care Provider [phone] Annalee Jones MD Primary Care Provider Un available Yolande Nicholas DO Primary Care Pro vider Unavailable Anuj Priest DO Primary Care Provider Judy [facility], Pcp Primary Care Provider Unavailabl e Encounter Details Date Type Department Care Team Description 12/13/2016 [facility] Specialist Report Medical Records [address] [place] [address] Dhruv Garcia MD Social History Tobacco Use [...] on filedocumented in this encounter Care Teams Prep Room Supervisor Relationship Specialty Start Date End Date Ayo Carpio MD [address] [place] [address] PCP - General Internal Medicine 07/19/16 01/05/17 Annalee Jones MD [address] [place] [address] PCP - General Internal Medicine 01/06/17 12/02/18 Yolande Nicholas, DO [address] [place] [address] PCP - General Internal Medicine 12/03/18 10/08/20 Anuj Priest, [address] [place] [address] PCP - General Internal Medicine 10/09/20 06/16/21 [facility], [address] [address] PCP - General Internal Medicine 06/17/21 documented as of this encounter
--- OUTSIDE RECORDS SUMMARY | 2024-06-19 15:55 | XMS_ITS | Encounter Summary ---
Author Organization [facility] Address [address] [place] [address] Care Team Providers Care Rater Associate Name Role Phone Ghassan Burciaga MD Primary Care Provider Unavail able Pierre Arevalo MD Primary Care Provider Judy vailable Gerson Dawson MD Primary Care Provider Unavail able [facility], Pcp Primary Care Provider Unavailabl e Coleman Mccarthy MD Primary Care Provider Unavaila Ayo Demarco MD Primary Care Provider [phone] Annalee Jones MD Primary Care Provider Un available Pascual Nicholasabela DO Primary Care Pro vider Unavailable Anuj Priest DO Primary Care Provider Judy vailable [facility], Pcp Primary Care Provider Unavailabl e Encounter Details Date Type Department Care Team Description 01/30/2009 Hospital Medical Records [address] [place] [address] Fernie Higginbotham MD Social History Tobacco Use [...] on filedocumented in this encounter Care Teams Rater Associate Relationship Specialty Start Date End Date Ghassan Burciaga MD PCP - General 07/24/00 05/06/13 Pierre Arevalo MD PCP - General Internal Medicine 05/07/13 4 Gerson Dawson MD PCP - General Internal Medicine 01/30/14 03/20/14 [facility], Pcp PCP - General Internal Medicine 03/21/14 05/06/14 Coleman Mccarthy MD PCP - General Internal Medicine 05/07/14 07/18/16 Ayo Carpio MD [address] [place], [place] [id number] PCP - General Internal Medicine 07/19/16 01/05/17 Annalee Jones MD [address] [place], [place] [id number] PCP - General Internal Medicine 01/06/17 12/02/18 Yolande Nicholas DO [address] [place] [address] PCP - General Internal Medicine 12/03/18 10/08/20 Anuj Priest DO [address] [place] [address] PCP - General Internal Medicine 10/09/20 06/16/21 [facility], Pcp PCP - General Internal Medicine 06/17/21 documented as of this encounter
--- OUTSIDE RECORDS SUMMARY | 2024-06-19 15:55 | XMS_ITS | Encounter Summary ---
Author Organization [facility] Address [address] [place] [address] Care Team Providers Care Mental Health Technician Name Role Phone Yolande Nicholas DO Primary Care Pro vider Unavailable Anuj Priest DO Primary Care Provider Judy Gardner, Pcp Primary Care Provider Unavailabl e Encounter Details Date Type Department Care Team Description 10/07/2019 Wet Machine Cutter Report Medical Records [address] [place] [address] Dhruv Garcia MD Social History Tobacco Use [...] on filedocumented in this encounter Care Teams Mental Health Technician Relationship Specialty Start Date End Date Yolande Nicholas DO PCP - General Internal Medicine 12/03/18 10/08/20 Anuj Priest DO PCP - General Internal Medicine 10/09/20 Jj, Pcp PCP - General Internal Medicine 06/17/21 documented as of this encounter
--- OUTSIDE RECORDS SUMMARY | 2024-06-19 15:55 | XMS_ITS | Encounter Summary ---
Author [facility] Address [address] [place] [address] Care Team Providers Care Internet Sales Representative Name Role Phone Yolande Nicholas DO Primary Care Pro vider Unavailable Anuj Priest DO Primary Care Provider [facility], Pcp Primary Care Provider Unavailabl e Reason for Visit * Reason Onset Date Comments Faxed Refill 08/13/2020 Melatonin 3 MG T ab Encounter Details Date Type Department Care Team Description 08/13/2020 Telephone Adult [address] [address] Yolande Nicholas DO Faxed Refill (Melatonin 3 [...] last prescribed in 2016. Called pt at [phone], phone continuously busy. * Telephone Encounter - [...] MED LIST AND IS IDENTIFIED BELOW): {MED LIST:25326) Med name: Melatonin 3 MG Tab Dosage: 3 mg tab # of tablets: Local pharmacy with request for 30 -day supply Instructions: Take one tablet by mouth daily at bedtime for sleep Did you check the pharmacy information above?: YES Patients current insurance carrier: Payor: [facility] / Plan: MEDICARE FFS $0 KARI MESA [id number] / Product Type: MEDICARE [id number] documented in this encounter Plan of Treatment Not on file documented as of this encounter Visit Diagnoses Not on filedocumented in this encounter Care Teams Internet Sales Representative Relationship Specialty Start Date End Date Yolande Nicholas DO PCP - General Internal Medicine 12/03/18 10/08/20 Anuj Priest DO PCP - General Internal Medicine 10/09/20 2 [facility], Pcp PCP - General Internal Medicine 06/17/21 documented as of this encounter
--- OUTSIDE RECORDS SUMMARY | 2024-06-19 15:55 | XMS_ITS | Encounter Summary ---
Author [facility] Address [address] [place] [address] Care Team Providers Care Order Picker Name Role Phone Ghassan Burciaga MD Primary Care Provider Unavail able Pierre Arevalo MD Primary Care Provider Judy vailable Gerson Dawson MD Primary Care Provider Unavail able [facility], Pcp Primary Care Provider Unavailabl e Coleman Mccarthy MD Primary Care Provider Unavaila Ayo Demarco MD Primary Care Provider [phone] Annalee Jones MD Primary Care Provider Un available Pascual Nicholasabela DO Primary Care Pro vider Unavailable Anuj Priest DO Primary Care Provider Judy vailable [facility], Pcp Primary Care Provider Unavailabl e Encounter Details Date Type Department Care Team Description 04/30/2007 Hospital Medical Records [address] [place] [address] Anuj Easton Jr. [facility] [address] [place], [place] [id number] Social History Tobacco Use Types Packs/Day Years [...] on filedocumented in this encounter Care Teams Order Picker Relationship Specialty Start Date End Date Ghassan Burciaga MD PCP - General 07/24/00 05/06/13 Pierre Arevalo MD PCP - General Internal Medicine 05/07/13 4 Gerson Dawson MD PCP - General Internal Medicine 01/30/14 03/20/14 [facility], Pcp PCP - General Internal Medicine 03/21/14 05/06/14 Coleman Mccarthy MD PCP - General Internal Medicine 05/07/14 07/18/16 Ayo Carpio MD [address] [place] [address] PCP - General Internal Medicine 07/19/16 01/05/17 Annalee Jones MD [address] [place] [address] PCP - General Internal Medicine 01/06/17 12/02/18 Yolande Nicholas, DO [address] [place] [address] PCP - General Internal Medicine 12/03/18 10/08/20 Anuj Priest, DO [address] [place] [address] PCP - General Internal Medicine 10/09/20 06/16/21 [facility], Pcp PCP - General Internal Medicine 06/17/21 documented as of this encounter
--- OUTSIDE RECORDS SUMMARY | 2024-06-19 15:55 | XMS_ITS | Encounter Summary ---
Author Organization [facility] Address [address] [place] [address] Care Team Providers Care Golf Ball Trimmer Name Role Phone Yolande Nicholas DO Primary Care Pro vider Unavailable Anuj Priest DO Primary Care Provider [facility], Pcp Primary Care Provider Unavailabl e Reason for Visit * Reason Comments E-prescribe Rx Request Encounter Details Date Type Department Care Team Description 01/24/2020 Refill Adult Medicine [address] [address] Alana Stinson MD [address] [place] [phone] E-prescribe Rx Request Social History Tobacco [...] - MEDICARE / Plan: MEDICARE FFS $5 [facility] [id number] / Product Type: MEDICARE [id number] documented in this encounter Plan of Treatment Not on file documented as of this encounter Visit Diagnoses Not on filedocumented in this encounter Care Teams Golf Ball Trimmer Relationship Specialty Start Date End Date Yolande Nicholas DO PCP - General Internal Medicine 12/03/18 10/08/20 Anuj Priest DO PCP - General Internal Medicine 10/09/20 2 [facility], Pcp PCP - General Internal Medicine 06/17/21 documented as of this encounter
--- OUTSIDE RECORDS SUMMARY | 2024-06-19 15:55 | XMS_ITS | Encounter Summary ---
Author Organization [facility] Address [address] [place] [address] Care Team Providers Care Raftsman Name Role Phone Ayo Carpio MD Primary Care Provider [phone] Annalee Jones MD Primary Care Provider Un available Yolande Nicholas DO Primary Care Pro vider Unavailable Anuj Priest DO Primary Care Provider Judy [facility], Pcp Primary Care Provider Unavailabl e Reason for Visit * Reason Onset Date Comments hospital follow up 10/14/2016 Encounter Details Date Type Department Care Team Description 10/14/2016 Telephone Adult Medicine [address] [phone] Ayo Carpio MD [address] [place] [address] [phone] hospital follow up Social History Tobacco Use [...] Pt to see 10/21 at 1:30 for [facility] f/u . * Telephone Encounter - Bertha Ernandez - 10/17/2016 1:41 PM EDT Pt returning call, pt has a bad phone, please call Patient today at this number [phone] * Telephone Encounter - Minerva Kan R.N. [...] appointment needed Hospital patient was treated at: [facility] Was this only an ER visit or [...] on filedocumented in this encounter Care Teams Raftsman Relationship Specialty Start Date End Date Ayo Carpio MD [address] [place] [address] PCP - General Internal Medicine 07/19/16 01/05/17 Annalee Jones MD [address] [place] [address] PCP - General Internal Medicine 01/06/17 12/02/18 Yolande Nicholas DO [address] [place] [address] PCP - General Internal Medicine 12/03/18 10/08/20 Anuj Priest DO [address] [place] [address] PCP - General Internal Medicine 10/09/20 06/16/21 [facility], Jose G [address] [place] [address] PCP - General Internal Medicine 06/17/21 documented as of this encounter
--- OUTSIDE RECORDS SUMMARY | 2024-06-19 15:55 | XMS_ITS | Encounter Summary ---
Author Organization [facility] Address [address] [place] [address] Care Team Providers Care Plaster Maker Name Role Phone Yolande Nicholas DO Primary Care Pro vider Unavailable Anuj Priest DO Primary Care Provider [facility], Pcp Primary Care Provider Unavailabl e Reason for Visit * Reason Onset Date Comments Faxed Order 02/14/2020 Encounter Details Date Type Department Care Team Description 02/14/2020 Telephone Adult Medicine [address] [address] Yolande Nicholas DO Faxed Order Social History [...] * Telephone Encounter - Kathe Orourke - 02/25/2020 2:13 PM EDT Fax orders from [facility], please sign and fax back. * Telephone Encounter - Susan Calderon - 02/14/2020 6:59 PM EDT Physician orders for Dr. Yolande Gomez's signature documented in this encounter Plan of Treatment Not on file documented as of this encounter Visit Diagnoses Not on filedocumented in this encounter Care Teams Plaster Maker Relationship Specialty Start Date End Date Yolande Nicholas DO PCP - General Internal Medicine 12/03/18 10/08/20 Anuj Priest DO PCP - General Internal Medicine 10/09/[address] [place] [address], Pcp PCP - General Internal Medicine 06/17/21 documented as of this encounter
--- OUTSIDE RECORDS SUMMARY | 2024-06-19 15:55 | XMS_ITS | Encounter Summary ---
Author Organization [facility] [facility] Address [address] [place] [address] Care Team Providers Care Contracts Law Professor Name Role Phone Yolande Nicholas DO Primary Care Pro vider Unavailable Anuj Priest DO Primary Care Provider Judy álvarez [facility], Pcp Primary Care Provider Unavailabl e Reason for Visit * Reason Comments E-prescribe Rx Request Encounter Details Date Type Department Care Team Description 12/25/2019 Refill Adult Medicine [address] [address] Alana Stinson MD [address] [place] [phone] E-prescribe Rx Request Social History Tobacco [...] on filedocumented in this encounter Care Teams Contracts Law Professor Relationship Specialty Start Date End Date Yolande Nicholas DO PCP - General Internal Medicine 12/03/18 10/08/20 Anuj Priest DO PCP - General Internal Medicine 10/09/20 2 [facility], Pcp PCP - General Internal Medicine 06/17/21 documented as of this encounter
--- OUTSIDE RECORDS SUMMARY | 2024-06-19 15:55 | XMS_ITS | Encounter Summary ---
Author Organization [employer] [facility] Address [address] [place] [address] Care Team Providers Care District Court Bailiff Name Role Phone Ghassan Burciaga MD Primary Care Provider Unavail able Pierre Arevalo MD Primary Care Provider Judy vailable Gerson Dawson MD Primary Care Provider Unavail able [facility], Pcp Primary Care Provider Unavailabl e Coleman Mccarthy MD Primary Care Provider Unavaila Ayo Demarco MD Primary Care Provider [phone] Annalee Jones MD Primary Care Provider Un available Pascual Nicholasabela DO Primary Care Pro vider Unavailable Anuj Priest DO Primary Care Provider Judy vailable [facility], Pcp Primary Care Provider Unavailabl e Encounter Details Date Type Department Care Team Description 10/28/2011 Senior Hydrogeologist Report Medical Records [address] [place] [address] Nhan Herbert MD Social History Tobacco Use [...] on filedocumented in this encounter Care Teams District Court Bailiff Relationship Specialty Start Date End Date Ghassan Burciaga MD PCP - General 07/24/00 05/06/13 Pierre Arevalo MD PCP - General Internal Medicine 05/07/13 4 Gerson Dawson MD PCP - General Internal Medicine 01/30/14 03/20/14 [facility], Pcp PCP - General Internal Medicine 03/21/14 05/06/14 Coleman Mccarthy MD PCP - General Internal Medicine 05/07/14 07/18/16 Ayo Carpio MD [address] [place], [place] [id number] PCP - General Internal Medicine 07/19/16 01/05/17 Annalee Jones MD [address] [place], [place] [phone] PCP - General Internal Medicine 01/06/17 12/02/18 Yolande Nicholas DO [address] [place] [address] PCP - General Internal Medicine 12/03/18 10/08/20 Anuj Priest DO [address] [place] [address] PCP - General Internal Medicine 10/09/20 06/16/21 [facility], Pcp PCP - General Internal Medicine 06/17/21 documented as of this encounter
--- OUTSIDE RECORDS SUMMARY | 2024-06-19 15:55 | XMS_ITS | Encounter Summary ---
Author Organization [facility] Address [address] [place] [address] Care Team Providers Care Insulation Technician Name Role Phone Yolande Nicholas DO Primary Care Pro vider Unavailable Anuj Priest DO Primary Care Provider [facility], Pcp Primary Care Provider Unavailabl e Reason for Visit * Reason Onset Date Comments Provider Call Back 01/29/2020 FYI Encounter Details Date Type Department Care Team Description 01/29/[address] [address] Yolande Nicholas DO Provider Call Back (FYI) [...] Thank you * Telephone Encounter - Bushra Workman - 01/29/2020 11:40 AM EDT Caller requesting [...] YES Reason for call back: [facility]. Going to ER and hoping tohave him admitted today. Has consultation with Dr Ben Rodriguez, endovascular surgeon on 02-06-20 [place] Caller offered to speak with the nurse for assistance: YES Response: Patient offered to speak with nurse for assistance and patient agreed. Message forwarded to nurse. documented in this encounter Plan of Treatment Not on file documented as of this encounter Visit Diagnoses Not on filedocumented in this encounter Care Teams Insulation Technician Relationship Specialty Start Date End Date Yolande Nicholas DO PCP - General Internal Medicine 12/03/18 10/08/20 Anuj Priest DO PCP - General Internal Medicine 10/09/[address] [place] [address], Pcp PCP - General Internal Medicine 06/17/21 documented as of this encounter
--- OUTSIDE RECORDS SUMMARY | 2024-06-19 15:55 | XMS_ITS | Encounter Summary ---
Author Organization [employer] Address [address] [facility] 7t [place] [address] Care Team Providers Care Creative Coordinator Name Role Phone Sesar Pereyra MD Primary Care Provider [phone] Encounter Details Date Type Department Care Team ([facility] st Contact Info) Description 04/01/2024 Orders Only [facility] MED & PEDS [address] [place], [place] [phone] Sesar Pereyra MD [address] [place] [address] Essential hypertension (Primary Dx) Social History Tobacco [...] [facility] Info) Description 09/11/2024 10:30 AM EDT Office Visit [facility] MED & PEDS [address] [place] [address] Sesar Pereyra MD [address] [place] [address] documented as of this encounter Visit Diagnoses Diagnosis Essential hypertension- Primary Unspecified essential hypertension documented in this encounter Additional Health Concerns Assessment Noted Time PHQ-9 Depression Total Score: 16 024 10:59 AM EDT documented as of this encounter Care Teams Creative Coordinator Relationship Specialty Start Date End Date Sesar Pereyra MD [address] [place] [address] PCP - General Internal Medicine 03/01/21 [facility] 03/22/24 documented as of this encounter
--- OUTSIDE RECORDS SUMMARY | 2024-06-19 15:55 | XMS_ITS | Encounter Summary ---
Author Organization [facility] Address [address] [place] [address] Care Team Providers Care Escort Service Attendant Name Role Phone Yolande Nicholas DO Primary Care Pro vider Unavailable Anuj Priest DO Primary Care Provider [facility], Pcp Primary Care Provider Unavailabl e Reason for Visit * Reason Onset Date Comments Faxed Order 01/16/2020 Encounter Details Date Type Department Care Team Description 01/16/2020 Telephone Adult Medicine [address] [address] Yolande Nicholas DO Faxed Order Social History [...] to be signed and faxed back to [phone] * Telephone Encounter - Lucy Pardo - 01/24/2020 2:35 PM EDT More Faxed orders received from [facility], placed in providers bin for review. Please sign and fax orders to [phone]. * Telephone Encounter - Susan Calderon - 01/16/2020 12:19 PM EDT Physician order for Dr. Yolande Alvarez-Makenzie's signature - tracking # [id number] documented in this encounter Plan of Treatment Not on file documented as of this encounter Visit Diagnoses Not on filedocumented in this encounter Care Teams Escort Service Attendant Relationship Specialty Start Date End Date Yolande Nicholas DO PCP - General Internal Medicine 12/03/18 10/08/20 Anuj Priest DO PCP - General Internal Medicine 10/09/[address] [place] [address], Pcp PCP - General Internal Medicine 06/17/21 documented as of this encounter
--- OUTSIDE RECORDS SUMMARY | 2024-06-19 15:55 | XMS_ITS | Encounter Summary ---
Author Organization [facility] Address [address] [place] [address] Care Team Providers Care Hydroelectric Systems Technician Name Role Phone Ghassan Burciaga MD Primary Care Provider Unavail able Pierre Arevalo MD Primary Care Provider Judy vailable Gerson Dawson MD Primary Care Provider Unavail able [facility], Pcp Primary Care Provider Unavailabl e Coleman Mccarthy MD Primary Care Provider Unavaila Ayo Demarco MD Primary Care Provider [phone] Annalee Jones MD Primary Care Provider Un available Kim Banegas Yolande DO Primary Care Pro vider Unavailable Anuj Priest DO Primary Care Provider Judy vailable [facility], Pcp Primary Care Provider Unavailabl e Encounter Details Date Type Department Care Team Description 06/25/2011 Pt. Non Urgent Medic al Question Medicine/Pediatrics - [address] [address] Ghassan Burciaga MD Social History Tobacco Use [...] on filedocumented in this encounter Care Teams Hydroelectric Systems Technician Relationship Specialty Start Date End Date Ghassan Burciaga MD PCP - General 07/24/00 05/06/13 Pierre Arevalo MD PCP - General Internal Medicine 05/07/13 4 Gerson Dawson MD PCP - General Internal Medicine 01/30/14 03/20/14 [facility], Pcp PCP - General Internal Medicine 03/21/14 05/06/14 Coleman Mccarthy MD PCP - General Internal Medicine 05/07/14 07/18/16 Ayo Carpio MD [address] [place] [address] PCP - General Internal Medicine 07/19/16 01/05/17 Annalee Jones MD [address] [place] [address] PCP - General Internal Medicine 01/06/17 12/02/18 Yolande Nicholas, [address] [address] PCP - General Internal Medicine 12/03/18 10/08/20 Anuj Priest, [address] [address] PCP - General Internal Medicine 10/09/20 06/16/21 [facility], Pcp PCP - General Internal Medicine 06/17/21 documented as of this encounter
--- OUTSIDE RECORDS SUMMARY | 2024-06-19 15:55 | XMS_ITS | Encounter Summary ---
Author Organization [employer] Address 75 [facility] 7t [place] [address] Care Team Providers Care Messaging Architect Name Role Phone Sesar Pereyra MD Primary Care Provider [phone] Reason for Visit * Reason Onset Date Comments Med Refill 04/26/2024 Encounter Details Date Type Department Care Team ([facility] st Contact Info) Description 04/26/2024 Telephone [facility] MEDICINE [address] [place] [address] Sesar Pereyra MD [address] [place] [address] Med Refill Social History Tobacco Use Types [...] 7.5 MG tablet To be sent to: [facility] - [place], [place] - [address] [facility] documented in this encounter Plan of Treatment Upcoming Encounters Date Type Department Care Team (Late st Contact Info) Description 09/11/2024 10:30 AM EDT Office Visit [facility] MED & PEDS [address] [place] [address] Sesar Pereyra MD [address] [place] [address] documented as of this encounter Visit Diagnoses Not on filedocumented in this encounter Additional Health Concerns Assessment Noted Time PHQ-9 Depression Total Score: 16 024 10:59 AM EDT documented as of this encounter Care Teams Messaging Architect Relationship Specialty Start Date End Date Sesar Pereyra MD [address] [place] [address] PCP - General Internal Medicine 03/01/21 [facility] 03/22/24 documented as of this encounter
--- OUTSIDE RECORDS SUMMARY | 2024-06-19 15:55 | XMS_ITS | Encounter Summary ---
Author Organization [facility] Address [address] [place] [address] Care Team Providers Care Coffee Supervisor Name Role Phone Yolande Nicholas DO Primary Care Pro vider Unavailable Anuj Priest DO Primary Care Provider [facility], Pcp [facility] Encounter Details Date Type Department Care Team Description 06/26/2020 Pt. 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
--- OUTSIDE RECORDS SUMMARY | 2024-06-19 15:55 | XMS_ITS | Encounter Summary ---
Author Organization [facility] Address [address] [place] [address] Care Team Providers Care Production Support Manager Name Role Phone Coleman Mccarthy MD Primary Care Provider Unavaila ble Ayo Carpio MD Primary Care Provider [phone] Annalee Jones MD Primary Care Provider Un available Yolande Nicholas DO Primary Care Pro vider Unavailable Anuj Priest DO Primary Care Provider [facility], Pcp Primary Care Provider Unavailabl e Encounter Details Date Type Department Care Team Description 07/30/2014 GOLD LETTERER/[employer] Report Medical Records [address] [place] [address] Abstract, Provider Social History Tobacco Use Types [...] on filedocumented in this encounter Care Teams Production Support Manager Relationship Specialty Start Date End Date Coleman Mccarthy MD PCP - General Internal Medicine 05/07/14 07/18/16 Ayo Carpio MD [address] [place] [id number] PCP - General Internal Medicine 07/19/16 01/05/17 Annalee Jones MD [address] [place] [address] PCP - General Internal Medicine 01/06/17 12/02/18 Yolande Nicholas, [address] [place] [address] PCP - General Internal Medicine 12/03/18 10/08/20 Anuj Priest DO [address] [place] [address] PCP - General Internal Medicine 10/09/20 06/16/21 [facility], Pcp [address] [place] [address] PCP - General Internal Medicine 06/17/21 documented as of this encounter
--- OUTSIDE RECORDS SUMMARY | 2024-06-19 15:55 | XMS_ITS | Encounter Summary ---
Author Organization [employer] Address [address] [facility] 7t [place] [address] Care Team Providers Care Rn Neonatal Name Role Phone Sesar Pereyra MD Primary Care Provider [phone] Reason for Visit * Reason Onset Date Comments Med Refill 04/02/2024 Encounter Details Date Type Department Care Team ([facility] st Contact Info) Description 04/02/2024 Telephone [facility] MEDICINE [address] [place] [address] Sesar Pereyra MD [address] [place] [address] Med Refill Social History Tobacco Use Types [...] 9:39 AM EST Medication was sent to [id number] on 04/01/24 #30 with 11 refills. * Telephone Encounter - Miri Young - 04/02/2024 9:33 AM EST TC from pt requesting medication refill. Medications needing refill : metoprolol tartrate (Lopressor) 25 MG tablet To be sent to: [facility] documented in this encounter Plan of Treatment Upcoming Encounters Date Type Department Care Team (Late st Contact Info) Description 09/11/2024 10:30 AM EDT Office Visit [facility] MED & PEDS [address] [place] [address] Sesar Pereyra MD [address] [place] [address] documented as of this encounter Visit Diagnoses Not on filedocumented in this encounter Additional Health Concerns Assessment Noted Time PHQ-9 Depression Total Score: 16 024 10:59 AM EDT documented as of this encounter Care Teams Rn Neonatal Relationship Specialty Start Date End Date Sesar Pereyra MD [address] [place] [address] PCP - General Internal Medicine 03/01/21 [facility] 03/22/24 documented as of this encounter
--- OUTSIDE RECORDS SUMMARY | 2024-06-19 15:55 | XMS_ITS | Encounter Summary ---
Author Organization [facility] Address [address] [place] [address] Care Team Providers Care Policy Services Representative Name Role Phone Yolande Nicholas DO Primary Care Pro vider Unavailable Anuj Priest DO Primary Care Provider Judy Gardner, Pcp Primary Care Provider Unavailabl e Encounter Details Date Type Department Care Team Description 10/07/2019 Pt. Non Urgent Medic al Question Adult Medicine [address] [address] Yolande Nicholas DO Social History Tobacco Use [...] on filedocumented in this encounter Care Teams Policy Services Representative Relationship Specialty Start Date End Date Yolande Nicholas DO PCP - General Internal Medicine 12/03/18 10/08/20 Anuj Priest DO PCP - General Internal Medicine 10/09/20 Molly Gardner, Pcp PCP - General Internal Medicine 06/17/21 documented as of this encounter
--- OUTSIDE RECORDS SUMMARY | 2024-06-19 15:55 | XMS_ITS | Encounter Summary ---
Author Organization [facility] Address [address] [place] [address] Care Team Providers Care Tire And Tube Repairer Name Role Phone Annalee Jones MD Primary Care Provider Un available Yolande Nicholas DO Primary Care Pro vider Unavailable Anuj Priest DO Primary Care Provider Judy vailable [facility], Pcp Primary Care Provider Unavailabl e Encounter Details Date Type Department Care Team Description 02/07/2017 Jewelry Jobber Report Medical Records [address] [place] [address] Dhruv Garcia MD Social History Tobacco Use [...] on filedocumented in this encounter Care Teams Tire And Tube Repairer Relationship Specialty Start Date End Date Annalee Jones MD PCP - General Internal Medicine 01/06/17 9 Yolande Nicholas DO PCP - General Internal Medicine 12/03/18 10/08/20 Anuj Priest DO PCP - General Internal Medicine 10/09/20 2 [facility], Pcp PCP - General Internal Medicine 06/17/21 documented as of this encounter
--- OUTSIDE RECORDS SUMMARY | 2024-06-19 15:55 | XMS_ITS | Encounter Summary ---
Author Organization [employer] [facility] Address [address] [place] [address] Care Team Providers Care Carbonizer Tester Name Role Phone Ghassan Burciaga MD Primary Care Provider Unavail able Pierre Arevalo MD Primary Care Provider Judy vailable Gerson Dawson MD Primary Care Provider Unavail able [facility], Pcp Primary Care Provider Unavailabl e Coleman Mccarthy MD Primary Care Provider Unavaila Ayo Demarco MD Primary Care Provider [phone] Annalee Jones MD Primary Care Provider Un available Pascual Nicholasabela DO Primary Care Pro vider Unavailable Anuj Priest DO Primary Care Provider Judy vailable [facility], Pcp Primary Care Provider Unavailabl e Encounter Details Date Type Department Care Team Description 01/27/2009 Hospital Medical Records [address] [place] [address] Bacilio Ward MD Social History Tobacco Use [...] on filedocumented in this encounter Care Teams Carbonizer Tester Relationship Specialty Start Date End Date Ghassan Burciaga MD PCP - General 07/24/00 05/06/13 Pierre Arevalo MD PCP - General Internal Medicine 05/07/13 4 Gerson Dawson MD PCP - General Internal Medicine 01/30/14 03/20/14 [facility], Pcp PCP - General Internal Medicine 03/21/14 05/06/14 Coleman Mccarthy MD PCP - General Internal Medicine 05/07/14 07/18/16 Ayo Carpio MD [address] [place], [place] [id number] PCP - General Internal Medicine 07/19/16 01/05/17 Annalee Jones MD [address] [place], [place] [phone] PCP - General Internal Medicine 01/06/17 12/02/18 Yolande Nicholas, DO [address] [place] [address] PCP - General Internal Medicine 12/03/18 10/08/20 Anuj Priest, [address] [place] [address] PCP - General Internal Medicine 10/09/20 06/16/21 [facility], Pcp PCP - General Internal Medicine 06/17/21 documented as of this encounter
--- OUTSIDE RECORDS SUMMARY | 2024-06-19 15:55 | XMS_ITS | Encounter Summary ---
Author Organization [facility] Address [address] [place] [address] Care Team Providers Care Turning And Beading Machine Operator Name Role Phone Yolande Nicholas DO Primary Care Pro vider Unavailable Anuj Priest DO Primary Care Provider Judy Gardner, Pcp Primary Care Provider Unavailabl e Encounter Details Date Type Department Care Team Description 12/19/2019 Hospital Medical Records [address] [place] [address] Cedrick Siddiqui Social History Tobacco Use Types [...] on filedocumented in this encounter Care Teams Turning And Beading Machine Operator Relationship Specialty Start Date End Date Yolande Nicholas DO PCP - General Internal Medicine 12/03/18 10/08/20 Anuj Priest DO PCP - General Internal Medicine 10/09/20 2 [facility], Pcp PCP - General Internal Medicine 06/17/21 documented as of this encounter
--- OUTSIDE RECORDS SUMMARY | 2024-06-19 15:55 | XMS_ITS | Encounter Summary ---
Author Organization [employer] Address [address] [facility] 7t [place] [address] Care Team Providers Care Sanitarian Name Role Phone Sesar Pereyra MD Primary Care Provider [phone] Encounter Details Date Type Department Care Team [...] Upcoming Encounters Date Type Department Care Team ([facility] st Contact Info) Description 09/11/2024 10:30 AM EDT Office Visit [facility] MED & PEDS [address] [place] [address] Sesar Pereyra MD [address] [place], [place] [phone] documented as of this encounter Procedures Procedure Name Priority Date/Time Associated Diagnosis Comments CREATININE, SERUM Routine 06/12/2024 12: 09 PM EST UREA NITROGEN (BUN) Routine 06/12/2024 1 2:09 PM EST CALCIUM Routine 06/12/2024 12:09 PM EST ELECTROLYTE PANEL Routine 06/12/2024 12: 09 PM EST documented in this encounter Results * Calcium (06/12/2024 12:09 PM EST) Calcium 9.1 8.4 - 10.2 mg/dL [facility] 06/12/2024 12:0 9 PM EST 06/12/2024 12:14 PM EST us Generic External Data Provider LAB BLOOD ORDERAB LES Final Result [facility] [address] [place] [address] [phone] * Creatinine, Serum (06/12/2024 12:09 PM EST) Creatinine, Serum 1.13 0.5 - 1.4 mg/dL [facility] Estimated Glomerular Filt Rate >60 [facility] Comment:Chronic Kidney Disea se: Estimated GFR < 60 mL/min/1.86p8Haizts Kidney Disease: Estimated GFR < 15 mL/min/1.73m2 06/12/2024 12:0 9 PM EST 06/12/2024 12:14 PM EST us Generic External Data Provider LAB BLOOD ORDERAB LES Final Result Performing Organization Address [facility] Co de Phone Number [facility] [address] [place] [phone] * (ABNORMAL) BUN (Blood Urea Nitrogen) (06/12/2024 12:09 PM EST) Urea Nitrogen (BUN) 18(H) 9 - 16 mg/dL [facility] 06/12/2024 12:0 9 PM EST 06/12/2024 12:14 PM EST Generic External Data Provider LAB BLOOD ORDERAB LES Final Result Performing Organization Address [facility] de Phone Number [facility] [address] [place] [phone] * (ABNORMAL) Electrolyte Panel (06/12/2024 12:09 PM EST) Sodium 142 135 - 145 mmol/L [facility] Potassium 4.0 3.3 - 5.1 mmol/L [facility] Comment:Slight Hemolysis.Int erpret result with caution. Chloride 109(H) 96 - 108 mmol/L [facility] Carbon Dioxide 24 22 - 29 mmol/L [facility] Anion Gap 13 12 - 20 [facility] 06/12/2024 12:0 9 PM EST 06/12/2024 12:14 PM EST Generic External Data Provider LAB BLOOD ORDERAB LES Final Result [facility] [address] [place] [address] [phone] documented in this encounter Visit Diagnoses Not on filedocumented in this encounter Additional Health Concerns Assessment Noted Time PHQ-9 Depression Total Score: 16 024 10:59 AM EDT documented as of this encounter Care Teams Sanitarian Relationship Specialty Start Date End Date Sesar Pereyra MD [address] [place] [address] PCP - General Internal Medicine 03/01/21 [facility] 03/22/24 documented as of this encounter
--- OUTSIDE RECORDS SUMMARY | 2024-06-19 15:55 | XMS_ITS | Encounter Summary ---
Author Organization [facility] Address [address] [place] [address] Care Team Providers Care Administrative Court Justice Name Role Phone Yolande Nicholas DO Primary Care Pro vider Unavailable Anuj Priest DO Primary Care Provider [facility], Pcp Primary Care Provider Unavailabl e Reason for Visit * Reason Onset Date Comments Mychart Rx Refill 06/27/2020 Encounter Details Date Type Department Care Team Description 06/27/2020 Refill Adult Medicine [address] [address] Yolande Nicholas DO Mychart Rx Refill Social [...] pharmacy whats the hold up Preferred pharmacy: [facility] [address] Medication renewals requested in this message routed separately: atorvastatin (LIPITOR) 80 MG tablet [Yolande Gomez DO] metoprolol (LOPRESSOR) 25 MG tablet [Yolande Gomez DO] documented in this encounter Plan of Treatment Not on file documented as of this encounter Visit Diagnoses Not on filedocumented in this encounter Care Teams Administrative Court Justice Relationship Specialty Start Date End Date Yolande Nicholas DO PCP - General Internal Medicine 12/03/18 10/08/20 Anuj Priest DO PCP - General Internal Medicine 10/09/[address] [place] [address], Pcp PCP - General Internal Medicine 06/17/21 documented as of this encounter
--- OUTSIDE RECORDS SUMMARY | 2024-06-19 15:55 | XMS_ITS | Encounter Summary ---
Author Organization [employer] Address [address] [employer] [facility] [place] [address] Care Team Providers Care Nurse Orthopaedic Name Role Phone Sesar Pereyra MD Primary Care Provider [phone]- [phone] Reason for Referral * Consultation (Routine) - Authorized Specialty Diagnoses / Procedures Referred By Wander reynolds Referred To Contact Orthopaedic Surgery Diagnoses Low back pain at multiple sites Sesar Pereyra MD [address] [place] [address] Phone: tel: fax: [facility] Orth[facility]ics [address] [place] [address] Phone: tel: Referral ID Status Reason Start Date Expiration Date Visits Requested Visits Authorized [id number] Authorized Specialty Services Required 06/13/2024 06/13/2025 1 1 * Consultation (Routine) - Closed Specialty Diagnoses / Procedures Referred By Wander reynolds Referred To Contact Otolaryngology Diagnoses Tinnitus of right ear Sesar Pereyra MD [address] [place] [address] Phone: tel: fax: [facility] [address] Phone: tel: fax: Referral ID Status Reason Start Date Expiration Date V isits Requested Visits Authorized [id number] Closed Specialty Services Required 06/13/2024 06/13/2025 1 1 Reason for Visit * Reason Comments Follow-up Kidney stones Encounter Details Date Type Department Care Team ([facility] Contact Info) Description 06/13/2024 1:00 PM EST Office Visit [facility] [address] [place] [address] Sesar Pereyra MD [address] [place] [address] Kidney stone (Primary Dx); Primary hypertension; Low [...] in general. 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
--- OUTSIDE RECORDS SUMMARY | 2024-06-19 15:55 | XMS_ITS | Encounter Summary ---
Author Organization [employer] Address [address] [facility] 7t [place] [address] Care Team Providers Care Recoil Spring Winder Name Role Phone Sesar Pereyra MD Primary Care Provider [phone]- [phone] Reason for Visit * Reason Onset Date Comments Med Refill 04/28/2024 Encounter Details Date Type Department Care Team ([facility] st Contact Info) Description 04/28/2024 Refill [facility] [address] [place] [address] Sesar Pereyra MD [address] [place] [address] Social History Tobacco Use Types Packs/Day Years [...] Health Care Facility st Contact Info) Description 09/11/2024 10:30 AM EDT Office Visit [facility] [address] [place] [address] Sesar Pereyra MD [address] [place] [address] documented as of this encounter Visit Diagnoses Not on filedocumented in this encounter Additional Health Concerns Assessment Noted Time PHQ-9 Depression Total Score: 16 024 10:59 AM EDT documented as of this encounter Care Teams Recoil Spring Winder Relationship Specialty Start Date End Date Sesar Pereyra MD [address] [place] [address] PCP - General Internal Medicine [facility] documented as of this encounter
--- OUTSIDE RECORDS SUMMARY | 2024-06-19 15:55 | XMS_ITS | Encounter Summary ---
Author Organization [employer] Address [address] [facility] 7t [place] [address] Care Team Providers Care Grain Elevator Motor Starter Name Role Phone Sesar Pereyra MD Primary Care Provider [phone] Encounter Details Date Type Department Care Team (Late st Contact Info) Description 04/02/2024 Orders Only [facility] [address] [place] [address] Provider, MD Jazmyn Social History Tobacco Use [...] Description 09/11/2024 10:30 AM EDT Office Visit [facility] [address] [place] [address] Sesar Pereyra MD [address] [place] [address] documented as of this encounter Procedures Procedure [...] documented as of this encounter Care Teams Grain Elevator Motor Starter Relationship Specialty Start Date End Date Sesar Pereyra MD [address] [place] [address] PCP - General Internal Medicine [facility] documented as of this encounter
--- OUTSIDE RECORDS SUMMARY | 2024-06-19 15:55 | XMS_ITS | Encounter Summary ---
Author Organization [facility] Address [address] [place] [address] Care Team Providers Care Armed Guard Name Role Phone Yolande Nicholas DO Primary Care Pro vider Unavailable Anuj Priest DO Primary Care Provider [facility], Pcp Primary Care Provider Unavailabl e Reason for Visit * Reason Onset Date Comments Faxed Order 08/25/2020 Encounter Details Date Type Department Care Team Description 08/25/2020 Telephone Adult [address] [address] Yolande Nicholas DO Faxed Order Social History [...] TO BE SIGN AND FAX BACK TO [phone]. documented in this encounter Plan of Treatment Not on file documented as of this encounter Visit Diagnoses Not on filedocumented in this encounter Care Teams Armed Guard Relationship Specialty Start Date End Date Yolande Nicholas DO PCP - General Internal Medicine 12/03/18 10/08/20 Anuj Priest DO PCP - General Internal Medicine 10/09/20 [facility], Pcp PCP - General Internal Medicine 06/17/21 documented as of this encounter
--- OUTSIDE RECORDS SUMMARY | 2024-06-19 15:55 | XMS_ITS | Encounter Summary ---
Author Organization [facility] Address [address] [place] [address] Care Team Providers Care Supervisor Feed House Name Role Phone Annalee Jones MD Primary Care Provider Un available Yolande Nicholas DO Primary Care Pro vider Unavailable Anuj Priest DO Primary Care Provider Judy vailable [facility], Pcp Primary Care Provider Unavailabl e Encounter Details Date Type Department Care Team Description 08/24/2017 Release of Information Medical Records [address] [place] [address] Abstract, Provider Social History Tobacco Use Types [...] filedocumented in this encounter Care Teams Supervisor Feed House Relationship Specialty Start Date End Date Annalee Jones MD PCP - General Internal Medicine 01/06/17 9 Yolande Nicholas DO PCP - General Internal Medicine 12/03/18 10/08/20 Anuj Priest DO PCP - General Internal Medicine 10/09/20 2 Jj, Pcp PCP - General Internal Medicine 06/17/21 documented as of this encounter
--- OUTSIDE RECORDS SUMMARY | 2024-06-19 15:55 | XMS_ITS | Encounter Summary ---
Author Organization [facility] Address [address] [place] [address] Care Team Providers Care Stores Naval Name Role Phone Yolande Nicholas DO Primary Care Pro vider Unavailable Anuj Priest DO Primary Care Provider [facility], Pcp Primary [facility] Encounter Details Date Type Department Care Team Description 01/22/2020 Pt. Non Urgent Medic al Question Adult Medicine [address] [address] Yolande Nicholas DO Social History Tobacco Use [...] they are planning to do in the [facility] oming weeks. At this point we have followed all your previous orders regarding who to see and when. Regarding meeting [facility] Needs, we are working with Luda He APRN at [facility] in [place], [place] P: [phone] Therefore, from all the doctor's reports you [...] on filedocumented in this encounter Care Teams Stores Naval Relationship Specialty Start Date End Date Yolande Nicholas DO PCP - General Internal Medicine 12/03/18 10/08/20 Anuj Priest DO PCP - General Internal Medicine 10/09/[address] [place] [address], Pcp PCP - General Internal Medicine 06/17/21 documented as of this encounter
--- OUTSIDE RECORDS SUMMARY | 2024-06-19 15:55 | XMS_ITS | Encounter Summary ---
Author Organization [facility] Address [address] [place] [address] Care Team Providers Care Construction Executive Name Role Phone Yolande Nicholas DO Primary Care Pro vider Unavailable Anuj Priest DO Primary Care Provider [facility], Pcp Primary [facility] Encounter Details Date Type Department Care Team Description 07/02/2019 Pt. Non Urgent Medic al Question Adult Medicine [address] [address] Yolande Nicholas DO Social History Tobacco Use [...] on filedocumented in this encounter Care Teams Construction Executive Relationship Specialty Start Date End Date Yolande Nicholas DO PCP - General Internal Medicine 12/03/18 10/08/20 Anuj Priest DO PCP - General Internal Medicine 10/09/[address] [place] [address], Pcp PCP - General Internal Medicine 06/17/21 documented as of this encounter
--- OUTSIDE RECORDS SUMMARY | 2024-06-19 15:55 | XMS_ITS | Encounter Summary ---
Author Organization [employer] Address [address] [facility] 7[address] [place] [address] Care Team Providers Care Store Mgr Name Role Phone Sesar Pereyra MD Primary Care Provider [phone]- [phone] Encounter Details Date Type Department Care Team ([facility] st Contact Info) Description 04/29/2024 Orders Only [facility] [address] [place], [place] [id number] Sesar Pereyra MD [address] [place] [address] Closed nondisplaced fracture of acromial end of [...] 10:30 AM EDT Office Visit [facility] [address] [place] [address] Sesar Pereyra MD [address] [place] [address] documented as of this encounter Visit Diagnoses Diagnosis Closed nondisplaced fracture of acromial end of right clavicle, initial encounter documented in this encounter Additional Health Concerns Assessment Noted Time PHQ-9 Depression Total Score: 16 024 10:59 AM EDT documented as of this encounter Care Teams Store Mgr Relationship Specialty Start Date End Date Sesar Pereyra MD [address] [place] [address] PCP - General Internal Medicine 03/01/21 [facility] 03/22/24 documented as of this encounter
--- OUTSIDE RECORDS SUMMARY | 2024-06-19 15:55 | XMS_ITS | Encounter Summary ---
Author [facility] Address [address] [place] [address] Care Team Providers Care Piano Accompanist Name Role Phone Yolande Nicholas DO Primary Care Pro vider Unavailable Anuj Priest DO Primary Care Provider Judy Gardner, Pcp Primary Care Provider Unavailabl e Encounter Details Date Type Department Care Team Description 11/08/2019 Habilitative Interventionist Report Medical Records [address] [place] [address] Cedrick Siddiqui Social History Tobacco Use Types [...] on filedocumented in this encounter Care Teams Piano Accompanist Relationship Specialty Start Date End Date Yolande Nicholas DO PCP - General Internal Medicine 12/03/18 10/08/20 Anuj Priest DO PCP - General Internal Medicine 10/09/20 2 J[facility], Pcp PCP - General Internal Medicine 06/17/21 documented as of this encounter
--- OUTSIDE RECORDS SUMMARY | 2024-06-19 15:55 | XMS_ITS | Encounter Summary ---
Author Organization [facility] Address [address] [place] [address] Care Team Providers Care Dropper Tank Storage Name Role Phone Yolande Nicholas DO Primary Care Pro vider Unavailable Anuj Priest DO Primary Care Provider Judy Gardner, Pcp Primary Care Provider Unavailabl e Encounter Details Date Type Department Care Team Description 12/25/2019 Hospital Medical Records [address] [place] [address] Cedrick Siddiqui Social History Tobacco Use Types [...] on filedocumented in this encounter Care Teams Dropper Tank Storage Relationship Specialty Start Date End Date Yolande Nicholas DO PCP - General Internal Medicine 12/03/18 10/08/20 Anuj Priest DO PCP - General Internal Medicine 10/09/20 2 J[facility], Pcp PCP - General Internal Medicine 06/17/21 documented as of this encounter
--- OUTSIDE RECORDS SUMMARY | 2024-06-19 15:55 | XMS_ITS | Encounter Summary ---
Author Organization [facility] [facility] Address [address] [place] [address] Care Team Providers Care Engineering Department Chair Name Role Phone Ghassan Burciaga MD Primary Care Provider Unavail able Pierre Arevalo MD Primary Care Provider Judy vailable Gerson Dawson MD Primary Care Provider Unavail able [facility], Pcp Primary Care Provider Unavailabl e Coleman Mccarthy MD Primary Care Provider Unavaila Ayo Demarco MD Primary Care Provider [phone] Annalee Jones MD Primary Care Provider Un available Pascual Nicholasabela DO Primary Care Pro vider Unavailable Anuj Priest DO Primary Care Provider Judy vailable [facility], Pcp Primary Care Provider Unavailabl e Encounter Details Date Type Department Care Team Description 07/05/2011 Printed Circuit Boards Inspector Report Medical Records [address] [place] [id number] Abstract, Provider Social History Tobacco Use Types [...] on filedocumented in this encounter Care Teams Engineering Department Chair Relationship Specialty Start Date End Date Ghassan Burciaga MD PCP - General 07/24/00 05/06/13 Pierre Arevalo MD PCP - General Internal Medicine 05/07/13 4 Gerson Dawson MD PCP - General Internal Medicine 01/30/14 03/20/14 [facility], Pcp PCP - General Internal Medicine 03/21/14 05/06/14 Coleman Mccarthy MD PCP - General Internal Medicine 05/07/14 07/18/16 Ayo Carpio MD [address] [place], [place] [id number] PCP - General Internal Medicine 07/19/16 01/05/17 Annalee Jones MD [address] [place], [place] [id number] PCP - General Internal Medicine 01/06/17 12/02/18 Yolande Nicholas DO [address] [place] [address] PCP - General Internal Medicine 12/03/18 10/08/20 Anuj Priest DO [address] [place] [address] PCP - General Internal Medicine 10/09/20 06/16/21 [facility], Pcp PCP - General Internal Medicine 06/17/21 documented as of this encounter
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
--- OUTSIDE RECORDS SUMMARY | 2024-06-19 15:55 | XMS_ITS | Encounter Summary ---
Author Organization [facility] Address [address] [place] [address] Care Team Providers Care Assembler Semiconductor Name Role Phone Yolande Nicholas DO Primary Care Pro vider Unavailable Anuj Priest DO Primary Care Provider Judy Gardner, Pcp Primary Care Provider Unavailabl e Encounter Details Date Type Department Care Team Description 01/03/2020 Puppy Walker Report Medical Records [address] [place] [address] Cedrick Siddiqui Social History Tobacco Use Types [...] on filedocumented in this encounter Care Teams Assembler Semiconductor Relationship Specialty Start Date End Date Yolande Nicholas DO PCP - General Internal Medicine 12/03/18 10/08/20 Anuj Priest DO PCP - General Internal Medicine 10/09/20 2 Jj, Pcp PCP - General Internal Medicine 06/17/21 documented as of this encounter
--- OUTSIDE RECORDS SUMMARY | 2024-06-19 15:55 | XMS_ITS | Encounter Summary ---
Author [facility] Address [address] [place] [address] Care Team Providers Care Pit Boss Name Role Phone Yolande Nicholas DO Primary Care Pro vider Unavailable Anuj Priest DO Primary Care Provider Judy Gardner, Pcp Primary Care Provider Unavailabl e Encounter Details Date Type Department Care Team Description 11/28/2019 Jewel Hole Driller Report Medical Records [address] [place] [address] Cedrick Siddiqui Social History Tobacco Use Types [...] on filedocumented in this encounter Care Teams Pit Boss Relationship Specialty Start Date End Date Yolande Nicholas DO PCP - General Internal Medicine 12/03/18 10/08/20 Anuj Priest DO PCP - General Internal Medicine 10/09/20 2 Jj, Pcp PCP - General Internal Medicine 06/17/21 documented as of this encounter
--- OUTSIDE RECORDS SUMMARY | 2024-06-19 15:55 | XMS_ITS | Encounter Summary ---
Author Organization [facility] Address [address] [place] [address] Care Team Providers Care Recreation Program Specialist Name Role Phone Ghassan Burciaga MD Primary Care Provider Unavail able Pierre Arevalo MD Primary Care Provider Judy vailable Gerson Dawson MD Primary Care Provider Unavail able [facility], Pcp Primary Care Provider Unavailabl e Coleman Mccarthy MD Primary Care Provider Unavaila Ayo Demarco MD Primary Care Provider [phone] Annalee Jones MD Primary Care Provider Un available Pascual Nicholasabela DO Primary Care Pro vider Unavailable Anuj Priest DO Primary Care Provider Judy vailable [facility], Pcp Primary Care Provider Unavailabl e Encounter Details Date Type Department Care Team Description 11/07/2012 Pt. Non Urgent Medic al Question Medicine/Pediatrics - [address] [phone] Ghassan Burciaga MD Social History Tobacco Use [...] MonNov 07, 2012 3:01 PM Subject: prescription [id number] Rohith Leung documented in this encounter Plan of Treatment Not on file documented as of this encounter Visit Diagnoses Not on filedocumented in this encounter Care Teams Recreation Program Specialist Relationship Specialty Start Date End Date Ghassan Burciaga MD PCP - General 07/24/00 05/06/13 Pierre Arevalo MD PCP - General Internal Medicine 05/07/13 4 Gerson Dawson MD PCP - General Internal Medicine 01/30/14 03/20/14 [facility], Pcp PCP - General Internal Medicine 03/21/14 05/06/14 Coleman Mccarthy MD PCP - General Internal Medicine 05/07/14 07/18/16 Ayo Carpio MD [address] [place], [place] [id number] PCP - General Internal Medicine 07/19/16 01/05/17 Annalee Jones MD [address] [place] [address] PCP - General Internal Medicine 01/06/17 12/02/18 Yolande Nicholas, DO [address] [place] [address] PCP - General Internal Medicine 12/03/18 10/08/20 Anuj Priest, [address] [place] [address] PCP - General Internal Medicine 10/09/20 06/16/21 [facility], Pcp PCP - General Internal Medicine 06/17/21 documented as of this encounter
--- OUTSIDE RECORDS SUMMARY | 2024-06-19 15:55 | XMS_ITS | Encounter Summary ---
Author Organization [facility] Address [address] [place] [address] Care Team Providers Care Commercial Loan Coordinator Name Role Phone Ayo Carpio MD Primary Care Provider [phone] Annalee Jones MD Primary Care Provider Un available Yolande Nicholas DO Primary Care Pro vider Unavailable Anuj Priest DO Primary Care Provider Judy [facility], Pcp Primary Care Provider Unavailabl e Encounter Details Date Type Department Care Team Description 11/28/2016 SCAN Medical Records [address] [place] [id number] Abstract, Provider Social History Tobacco Use Types [...] filedocumented in this encounter Care Teams Commercial Loan Coordinator Relationship Specialty Start Date End Date Ayo Carpio MD [address] [place] [id number] PCP - General Internal Medicine 07/19/16 01/05/17 Annalee Jones MD [address] [place] [address] PCP - General Internal Medicine 01/06/17 12/02/18 Yolande Nicholas, [address] [place] [address] PCP - General Internal Medicine 12/03/18 10/08/20 Anuj Priest DO [address] [place] [address] PCP - General Internal Medicine 10/09/20 06/16/21 Pending Sale To [facility], Pcp [address] [place], [place] [id number] PCP - General Internal Medicine 06/17/21 documented as of this encounter
--- OUTSIDE RECORDS SUMMARY | 2024-06-19 15:55 | XMS_ITS | Encounter Summary ---
Author Organization [facility] Address [address] [place] [address] Care Team Providers Care Radiological Defense Officer Name Role Phone Yolande Nicholas DO Primary Care Pro vider Unavailable Anuj Priest DO Primary Care Provider [facility], Pcp Primary Care Provider Unavailabl e Reason for Visit * Reason Comments E-prescribe Rx Request Encounter Details Date Type Department Care Team Description 01/01/2020 Refill Adult Medicine [address] [address] Alana Stinson MD [address] [place] [phone] E-prescribe Rx Request Social History Tobacco [...] on filedocumented in this encounter Care Teams Radiological Defense Officer Relationship Specialty Start Date End Date Yolande Nicholas DO PCP - General Internal Medicine 12/03/18 10/08/20 Anuj Priest DO PCP - General Internal Medicine 10/09/20 2 [facility], Pcp PCP - General Internal Medicine 06/17/21 documented as of this encounter
--- OUTSIDE RECORDS SUMMARY | 2024-06-19 15:55 | XMS_ITS | Encounter Summary ---
Author Organization [facility] Address [address] [place] [address] Care Team Providers Care Service Shop Foreman Name Role Phone Yolande Nicholas DO Primary Care Pro vider Unavailable Anuj Priest DO Primary Care Provider Judy Gardner, Pcp Primary Care Provider Unavailabl e Encounter Details Date Type Department Care Team Description 08/29/2019 SNF discharge summary Medical Records [address] [place] [address] Abstract, Provider Social History Tobacco Use Types [...] filedocumented in this encounter Care Teams Service Shop Foreman Relationship Specialty Start Date End Date Yolande Nicholas DO PCP - General Internal Medicine 12/03/18 10/08/20 Anuj Priest DO PCP - General Internal Medicine 10/09/20 2 Jj, Pcp PCP - General Internal Medicine 06/17/21 documented as of this encounter
--- OUTSIDE RECORDS SUMMARY | 2024-06-19 15:55 | XMS_ITS | Encounter Summary ---
Author Organization [facility] Address [address] [place] [address] Care Team Providers Care Campus Security Officer Name Role Phone Yolande Nicholas DO Primary Care Pro vider Unavailable Anuj Priest DO Primary Care Provider [facility], Pcp Primary Care Provider Unavailabl e Reason for Visit * Reason Onset Date Comments Information Needed 09/06/2019 Encounter Details Date Type Department Care Team Description 09/06/2019 Telephone Adult [address] [address] Yolande Nicholas DO Information Needed Social History [...] Perez M.A. - 09/06/2019 2:36 PM EDT [facility] - [phone] Left detailed msg for pt to call above number to request the discharge summary, Unable to get the D/C summary through [facility] * Telephone Encounter - Judith Cardenas - 09/06/2019 10:47 AM EDT Patient's girlfriend Ame is requesting the discharge summary to be faxed to Dr. Baker to [phone] * Telephone Encounter - Sabina Zaman - 09/06/2019 9:49 AM EDT Ame, the patient girlfriend is calling stating that the patient needs the discharge summary from [facility] to sent over to [facility], to Dr. Duc Baker for his audio visit 09/06/2019 in order for the patient to continue to get prescribe his anxiety medication. Please advise. documented in this encounter Plan of Treatment Not on file documented as of this encounter Visit Diagnoses Not on filedocumented in this encounter Care Teams Campus Security Officer Relationship Specialty Start Date End Date Yolande Nicholas DO PCP - General Internal Medicine 12/03/18 10/08/20 Anuj Priest DO PCP - General Internal Medicine 10/09/[address] [place] [address], Pcp PCP - General Internal Medicine 06/17/21 documented as of this encounter
--- OUTSIDE RECORDS SUMMARY | 2024-06-19 15:55 | XMS_ITS | Encounter Summary ---
Author Organization [employer] Address [address] [facility] 7t [place] [address] Care Team Providers Care Hoist Worker Name Role Phone Sesar Pereyra MD Primary Care Provider +1- [phone] Reason for Visit * Reason Onset Date Comments Med Refill 04/11/2024 Encounter Details Date Type Department Care Team (Late st Contact Info) Description 04/11/2024 Refill [facility] MEDICINE [address] [place] [address] Natasha Jiang MD [address] [place] [address] Closed nondisplaced fracture of acromial end of [...] Upcoming Encounters Date Type Department Care Team ([facility] st Contact Info) Description 09/11/2024 10:30 AM EDT Office Visit [facility] MED & PEDS [address] [place] [address] Sesar Pereyra MD [address] [place] [address] documented as of this encounter Visit Diagnoses Diagnosis Closed nondisplaced fracture of acromial end of right clavicle, initial encounter documented in this encounter Additional Health Concerns Assessment Noted Time PHQ-9 Depression Total Score: 16 024 10:59 AM EDT documented as of this encounter Care Teams Hoist Worker Relationship Specialty Start Date End Date Sesar Pereyra MD [address] [place] [address] PCP - General Internal Medicine [facility] documented as of this encounter
--- OUTSIDE RECORDS SUMMARY | 2024-06-19 15:56 | XMS_ITS | Encounter Summary ---
Author Organization [employer] Address [address] [facility] [address] [place] [address] Care Team Providers Care Base Ply Hand Name Role Phone Sesar Pereyra MD Primary Care Provider +1- [phone] Reason for Referral * Consultation (Routine) - Closed Specialty Diagnoses / Procedures Referred By Contac t Referred To Contact Geriatric Medicine Diagnoses Memory disturbance Sesar Pereyra MD [address] [place] [address] Phone: tel: fax: [facility] [address] [place] [address] Phone: tel: fax: Referral ID Status Reason Start Date Expiration Date V isits Requested Visits Authorized [id number] Closed Specialty Services Required 01/11/2024 01/10/2025 1 1 Encounter Details Date Type Department Care Team (Late st Contact Info) Description 01/11/2024 Orders Only [facility] MED & PEDS [address] [place], [place] [phone] Sesar Pereyra MD [address] [place], [place] [phone] Memory disturbance (Primary Dx) Social History Tobacco [...] 10:30 AM EDT Office Visit [facility] MED & PEDS [address] [place] [address] Sesar Pereyra MD [address] [place] [address] Scheduled Referrals Name Type Priority Associated Diagnoses Orde r Schedule Referral to Geriatrics Outpatient Referral Routine Memory disturbance Expected: 01/11/2024 (Approximate), Expires: 01/10/2025 documented as of this encounter Visit Diagnoses Diagnosis Memory disturbance- Primary Memory loss documented in this encounter Additional Health Concerns Assessment Noted Time PHQ-9 Depression Total Score: 16 024 10:59 AM EDT documented as of this encounter Care Teams Base Ply Hand Relationship Specialty Start Date End Date Sesar Pereyra MD [address] [place] [address] PCP - General Internal Medicine [facility] documented as of this encounter
--- OUTSIDE RECORDS SUMMARY | 2024-06-19 15:56 | XMS_ITS | Clinical Summary ---
Author Organization Unknown Care Team Providers Care Natural Resources Extension Educator Name Role Phone MARCO RAMIREZ, POOJA Unavailable Unavailabl e JIMENEZ PT, COURTNEY Unavailable Unavailable SPAFFORD OT, DAGO Unavailable Unavailable CONDINO FERNY/CALZADA, ANGUS Unavailable Unav ailable FECTEAU PRACTICE PROFESSIONAL, JANETT Unavailable Unavailable LESLYE RN, DAGOBERTO Unavailable Unavailab abraham CARRION DIAMOND ASSORTER, ANTONIO Unavailable Unavailable JOSE RAFAEL SKAGGSN, YORDAN Unavailable Unavail able Payers Payer Name Policy Type Policy Number Effective Date Expira tion Date [facility] [id number] Problems Condition Name Condition Details Condition Category [...] 2023-05 00:00: 00 ATHSCL HEART DISEASE OF [place] CORONARY ARTERY W/O ANG PCTRS Active 05-01 [...] HISTORY OF COVID-19 Active 2023-05 00:00: 00 PENITENTIARY (CURRENT) USE OF ANTICOAGULAN TS Active 2023-05 [...] 2023-05 00:00: 00 05-16 23:59 :00 No [id number] PAIN 15 mg EVERY 6 HOURS NEEDED 15 mg EVERY 6 HOURS NEEDED (route: oral) Med Classific ation: Analgesic , Anti-infl ammatory or Antipyret ic clonazepam 0.5 mg tablet 2023-05 00:00: 00 Yes [id number] ANXIETY 0.5 mg 2 TIMES DAILY 0.5 mg 2 TIMES DAILY (route: oral) Med Classific ation: Central Nervous System Agents lisinopril 40 mg tablet 2023-05 00:00: 00 03-21 23:59 :00 No [id number] CAD 40 mg DAILY 40 mg DAILY (route: oral) Med Classific ation: Cardiovas cular Therapy Agents atorvastati n 80 mg tablet 2023-05 00:00: 00 Yes [id number] HYPERTENSIO N 80 mg DAILY 80 mg DAILY (route: oral) Med Classific ation: Cardiovas cular Therapy Agents cilostazol 50 mg tablet 2023-05 00:00: 00 Yes [id number] HYPERTENSIO N 50 mg 2 TIMES DAILY 50 mg 2 TIMES DAILY (route: oral) Med Classific ation: Hematolog ical Agents clopidogrel 75 mg tablet 2023-05 00:00: 00 03-21 23:59 :00 No [id number] CORONARY ARTERY DISEASE 75 mg DAILY 75 mg DAILY (route: oral) Med Classific ation: Hematolog ical Agents Eliquis 5 mg tablet 2023-05 00:00: 00 Yes [id number] ANTI ARRHYTHMIC 5 mg 2 TIMES DAILY 5 mg 2 TIMES DAILY (route: oral) Med Classific ation: Hematolog ical Agents furosemide 40 mg tablet 2023-05 00:00: 00 03-21 23:59 :00 No [id number] BPH 40 mg DAILY 40 mg DAILY (route: oral) Alternate Route: INTRA-MUS CULAR. Med Classific ation: Cardiovas cular Therapy Agents metoprolol tartrate 50 mg tablet 2023-05 00:00: 00 03-22 23:59 :00 No [id number] CAD 50 mg DAILY 50 mg DAILY (route: oral) Med Classific ation: Cardiovas cular Therapy Agents quetiapine 25 mg tablet 2023-05 00:00: 00 Yes [id number] MOOD STABILIZER 25 mg 2 TIMES DAILY 25 mg 2 TIMES DAILY (route: oral) Med Classific ation: Central Nervous System Agents sertraline 50 mg tablet 2023-05 00:00: 00 Yes [id number] MOOD STABILIZER 50 mg DAILY 50 mg DAILY (route: oral) Med Classific ation: Central Nervous System Agents tamsulosin 0.4 mg capsule 2023-05 00:00: 00 Yes [id number] BPH 0.4 mg DAILY 0.4 mg DAILY (route: oral) Med Classific ation: Genitouri nary Therapy docusate sodium 100 mg tablet 2023-05 00:00: 00 Yes [id number] CONSTIPATIO N 100 mg DAILY 100 mg DAILY (route: oral) Med Classific ation: Gastroint estinal Therapy Agents gabapentin 100 mg capsule 2023-05 00:00: 00 Yes [id number] PAIN 1-3 capsule BEDTIME 1-3 capsule BEDTIME (route: oral) Med Classific ation: Central Nervous System Agents metoprolol tartrate 25 mg tablet 2023-05 00:00: 00 03-27 16:09 :43.1 53 No [id number] HYPERTENSIO N 25 mg 2 TIMES DAILY 25 mg 2 TIMES DAILY (route: oral) Med Classific ation: Cardiovas cular Therapy Agents Multaq 400 mg tablet 2023-05 00:00: 00 Yes [id number] ANTIARRHYTH MICHAEL 400 mg 2 TIMES DAILY 400 mg 2 TIMES DAILY (route: oral) Med Classific ation: Cardiovas cular Therapy Agents furosemide 40 mg tablet 2023-05 00:00: 00 Yes [id number] edema 1 tablet DAILY 1 tablet DAILY (route: oral) Med Classific ation: Cardiovas cular Therapy Agents dextroamphe tamine-amph etamine 7.5 mg tablet 2023-05 00:00: 00 Yes [id number] attention 1 tablet DAILY 1 tablet DAILY (route: oral) Med Classific ation: Central Nervous System Agents metoprolol tartrate 25 mg tablet 2023-05 00:00: 00 Yes [id number] heart rate 0.5 tablet 2 TIMES DAILY 0.5 tablet 2 TIMES DAILY (route: oral) Med Classific ation: Cardiovas cular Therapy Agents cephalexin 500 mg capsule 2023-05 00:00: 00 04-10 23:59 :00 No [id number] CELLULITIS LLL 500 mg 4 TIMES DAILY 500 mg 4 TIMES DAILY (route: oral) Med Classific ation: Anti-Infe ctive Agents hydralazine 25 mg tablet 2023-05 00:00: 00 Yes [id number] HTN 25 mg 2 TIMES DAILY 25 [...] CONSULTING PHYSICIANS. RN TO OBSERVE AND ASSESS, TEMPLATE STORAGE CLERK/MANAGER ANIMAL TO OBSERVE FOR RISK FOR FALLS AND INSTRUCT IN FALL PREVENTION, HOME SAFETY, MEDICATION MANAGEMENT, INFECTION PREVENTION, AND NUTRITION MANAGEMENT. RN/TEMPLATE STORAGE CLERK/MANAGER ANIMAL NURSE MAY PERFORM O2 SATURATION LEVEL ON ADMISSION AND PRN FOR RN TO ASSESS/TEMPLATE STORAGE CLERK TO OBSERVE PATIENT, WITH NOTIFICATION TO THE PHYSICIAN IF SATURATION IS 90% IN THE ABSENCE OF MORE SPECIFIC PARAMETERS FROM THE PHYSICIAN. AGENCY MAY PERFORM A RESUMPTION OF CARE VISIT FOLLOWING ANY HOSPITAL ADMISSION. RN/TEMPLATE STORAGE CLERK/MANAGER ANIMAL TO MONITOR CO-MORBID CONDITIONS LISTED ON THE PLAN OF CARE AND ANY NEW CONDITIONS THAT PRESENT THEMSELVES DURING THIS EPISODE TO IDENTIFY CHANGES AND INTERVENE TO MINIMIZE COMPLICATIONS. [code = RN TO OBSERVE, ASSESS, EVALUATE, AND DEVELOP AN INDIVIDUALIZED PLAN OF CARE. AGENCY MAY ACCEPT ORDERS FROM CONSULTING PHYSICIANS. RN TO OBSERVE AND ASSESS, TEMPLATE STORAGE CLERK/MANAGER ANIMAL TO OBSERVE FOR RISK FOR FALLS AND INSTRUCT IN FALL PREVENTION, HOME SAFETY, MEDICATION MANAGEMENT, INFECTION PREVENTION, AND NUTRITION MANAGEMENT. RN/TEMPLATE STORAGE CLERK/MANAGER ANIMAL NURSE MAY PERFORM O2 SATURATION LEVEL ON ADMISSION AND PRN FOR RN TO ASSESS/TEMPLATE STORAGE CLERK TO OBSERVE PATIENT, WITH NOTIFICATION TO THE PHYSICIAN IF SATURATION IS 90% IN THE ABSENCE OF MORE SPECIFIC PARAMETERS FROM THE PHYSICIAN. AGENCY MAY PERFORM A RESUMPTION OF CARE VISIT FOLLOWING ANY HOSPITAL ADMISSION. RN/TEMPLATE STORAGE CLERK/MANAGER ANIMAL TO MONITOR CO-MORBID CONDITIONS LISTED ON THE PLAN OF CARE AND ANY NEW CONDITIONS THAT PRESENT THEMSELVES DURING THIS EPISODE TO IDENTIFY CHANGES AND INTERVENE TO MINIMIZE COMPLICATIONS.] Future Scheduled Test MEDICATION MANAGEMENT; RN/TEMPLATE STORAGE CLERK/MANAGER ANIMAL TO REVIEW MEDICATIONS FOR INTERACTIONS, EFFECTIVENESS OF DRUG THERAPY, AND SIGNS/SYMPTOMS OF ADVERSE REACTIONS. MAY INSTRUCT AND REINFORCE MEDICATION TEACHING RELATED TO THE USE OF MEDICATIONS, DOSAGE, FREQUENCY, PURPOSE, SIDE EFFECTS, AND TO REPORT COMPLICATIONS. HELP SET UP BUBBLE PACKS [code = MEDICATION MANAGEMENT; RN/TEMPLATE STORAGE CLERK/MANAGER ANIMAL TO REVIEW MEDICATIONS FOR INTERACTIONS, EFFECTIVENESS OF DRUG THERAPY, AND SIGNS/SYMPTOMS OF ADVERSE REACTIONS. MAY INSTRUCT AND REINFORCE MEDICATION TEACHING RELATED TO THE USE OF MEDICATIONS, DOSAGE, FREQUENCY, PURPOSE, SIDE EFFECTS, AND TO REPORT COMPLICATIONS. HELP SET UP BUBBLE PACKS] Future Scheduled Test RISK FOR H OSPITALIZATION; RN TO ASSESS/TEACH, MANAGER ANIMAL/TEMPLATE STORAGE CLERK TO OBSERVE/TEACH PATIENT/CAREGIVER ON RISK FOR HOSPITALIZATION/EMERGENCY ROOM VISITS, TEACH SIGNS AND SYMPTOMS THAT PUT PATIENT AT RISK, WHEN TO NOTIFY NURSE/PHYSICIAN OF COMPLICATIONS/DECLINE, AND WHEN TO CALL 911. [code = RISK FOR HOSPITALIZATION; RN TO ASSESS/TEACH, MANAGER ANIMAL/TEMPLATE STORAGE CLERK TO OBSERVE/TEACH PATIENT/CAREGIVER ON RISK FOR HOSPITALIZATION/EMERGENCY ROOM VISITS, TEACH SIGNS AND SYMPTOMS THAT PUT PATIENT AT RISK, WHEN TO NOTIFY NURSE/PHYSICIAN OF COMPLICATIONS/DECLINE, AND WHEN TO CALL 911.] Future Scheduled Test CARDIOVASC ULAR SYSTEM; RN TO ASSESS/TEACH, TEMPLATE STORAGE CLERK/MANAGER ANIMAL TO OBSERVE/TEACH RELATED TO ALTERED CARDIOVASCULAR STATUS TO MINIMIZE COMPLICATIONS AND REDUCE HOSPITALIZATION. [code = CARDIOVASCULAR SYSTEM; RN TO ASSESS/TEACH, TEMPLATE STORAGE CLERK/MANAGER ANIMAL TO OBSERVE/TEACH RELATED TO ALTERED CARDIOVASCULAR STATUS TO MINIMIZE COMPLICATIONS AND REDUCE HOSPITALIZATION.] Future Scheduled Test HYPERTENSI ON MANAGEMENT; RN TO ASSESS AND TEACH, TEMPLATE STORAGE CLERK/MANAGER ANIMAL TO OBSERVE AND TEACH WARNING SIGNS AND SYMPTOMS TO AVOID HOSPITALIZATION. [code = HYPERTENSION MANAGEMENT; RN TO ASSESS AND TEACH, TEMPLATE STORAGE CLERK/MANAGER ANIMAL TO OBSERVE AND TEACH WARNING SIGNS AND SYMPTOMS TO AVOID HOSPITALIZATION.] Future Scheduled Test ARRHYTHMIA MANAGEMENT; RN TO ASSESS AND TEACH, TEMPLATE STORAGE CLERK/MANAGER ANIMAL TO OBSERVE AND TEACH WARNING SIGNS AND SYMPTOMS TO AVOID HOSPITALIZATION. [code = ARRHYTHMIA MANAGEMENT; RN TO ASSESS AND TEACH, TEMPLATE STORAGE CLERK/MANAGER ANIMAL TO OBSERVE AND TEACH WARNING SIGNS AND SYMPTOMS TO AVOID HOSPITALIZATION.] Future Scheduled Test SKIN INTEG RITY RN TO ASSESS AND TEACH, TEMPLATE STORAGE CLERK/MANAGER ANIMAL TO OBSERVE AND TEACH INTEGUMENTARY STATUS TO IDENTIFY CHANGES AND INTERVENE TO MINIMIZE COMPLICATIONS. PROVIDE SKILLED TEACHING OF GENERAL WOUND AND SKIN CARE AND PREVENTION RELATED TO POTENTIAL FOR ALTERED SKIN INTEGRITY [code = SKIN INTEGRITY RN TO ASSESS AND TEACH, TEMPLATE STORAGE CLERK/MANAGER ANIMAL TO OBSERVE AND TEACH INTEGUMENTARY STATUS TO IDENTIFY CHANGES AND INTERVENE TO MINIMIZE COMPLICATIONS. PROVIDE SKILLED TEACHING OF GENERAL WOUND AND SKIN CARE AND PREVENTION RELATED TO POTENTIAL FOR ALTERED SKIN INTEGRITY ] Future Scheduled Test PAIN MANAG EMENT; RN TO ASSESS AND TEACH, MANAGER ANIMAL/TEMPLATE STORAGE CLERK TO OBSERVE AND TEACH AND PROVIDE EDUCATION ON PAIN MANAGEMENT TECHNIQUES. [code = PAIN MANAGEMENT; RN TO ASSESS AND TEACH, MANAGER ANIMAL/TEMPLATE STORAGE CLERK TO OBSERVE AND TEACH AND PROVIDE EDUCATION ON PAIN MANAGEMENT TECHNIQUES.] Future Scheduled Test FALL REDUC TION MANAGEMENT; RN TO ASSESS AND OBSERVE, TEMPLATE STORAGE CLERK/MANAGER ANIMAL TO OBSERVE FALL RISK FACTORS AND EDUCATE PATIENT/CAREGIVER ON STRATEGIES TO MINIMIZE THE RISK OF FALLING. [code = FALL REDUCTION MANAGEMENT; RN TO ASSESS AND OBSERVE, TEMPLATE STORAGE CLERK/MANAGER ANIMAL TO OBSERVE FALL RISK FACTORS AND EDUCATE PATIENT/CAREGIVER ON STRATEGIES TO MINIMIZE THE RISK OF FALLING.] Future Scheduled Test RESPIRATOR Y SYSTEM MANAGEMENT; RN TO ASSESS AND TEACH, TEMPLATE STORAGE CLERK/MANAGER ANIMAL TO OBSERVE AND TEACH RELATED TO ALTERED RESPIRATORY STATUS TO MINIMIZE COMPLICATIONS AND REDUCE HOSPITALIZATION. [code = RESPIRATORY SYSTEM MANAGEMENT; RN TO ASSESS AND TEACH, TEMPLATE STORAGE CLERK/MANAGER ANIMAL TO OBSERVE AND TEACH RELATED TO ALTERED [...] End Date/Time Encounter Type Admission Type Attending [facility] Care Department Encounter ID Discharge Date Discharge Status Discharge Condition Discharge Reason Percent Goals Met 2024-03-22 00:00:00 2024-07-19 00:00:00 Outpatient JOSE MARIARTIFIC DAGOBERTO NEIL [facility] [id number]
--- OUTSIDE RECORDS SUMMARY | 2024-06-19 15:56 | XMS_ITS | Encounter Summary ---
Author Organization [employer] Address [address] [facility] 7t [place] [address] Care Team Providers Care Revenue Cycle Specialist Name Role Phone Sesar Pereyra MD Primary Care Provider +1- [phone] Reason for Visit * Reason Onset Date Comments fyi 05/28/2024 Encounter Details Date Type Department Care Team ([facility] st Contact Info) Description 05/28/2024 Telephone [facility] MEDICINE [address] [place] [address] Sesar Pereyra MD [address] [place] [address] fy Social History Tobacco Use Types Packs/Day [...] 05/28/2024 9:37 AM EST Tc from [facility] with [employer] [facility] Care informing pt verbalized to her that he been taking THD Gummies 2x a day morning and afternoon. Gummies are 10mg per gummy as he's aware of what he's taking. documented in this encounter Plan of Treatment Upcoming Encounters Date Type Department Care Team ([facility] st Contact Info) Description 09/11/2024 10:30 AM EDT Office Visit [facility] MED & PEDS [address] [place] [address] Sesar Pereyra MD [address] [place] [address] documented as of this encounter Visit Diagnoses Not on filedocumented in this encounter Additional Health Concerns Assessment Noted Time PHQ-9 Depression Total Score: 16 024 10:59 AM EDT documented as of this encounter Care Teams Revenue Cycle Specialist Relationship Specialty Start Date End Date Sesar Pereyra MD [address] [place] [address] PCP - General Internal Medicine 03/01/21 [facility] 03/22/24 documented as of this encounter
--- OUTSIDE RECORDS SUMMARY | 2024-06-19 15:56 | XMS_ITS | Encounter Summary ---
Author Organization [employer] Address [address] [facility] 7t [place] [address] Care Team Providers Care Disposition Clerk Name Role Phone Sesar Pereyra MD Primary Care Provider +1- [phone] Reason for Visit * Reason Onset Date Comments Lab Orders 05/30/2024 Referral 05/30/2024 Encounter Details Date Type Department Care Team (Late st Contact Info) Description 05/30/2024 Telephone [facility] MEDICINE [address] [place] [address] Sesar Pereyra MD [address] [place] [address] Lab Orders; Referral Social History Tobacco Use [...] Description 09/11/2024 10:30 AM EDT Office Visit [facility] MED [facility] PEDS [address] [place] [address] Sesar Pereyra MD [address] [place] [address] documented as of this encounter Visit Diagnoses Not on filedocumented in this encounter Additional Health Concerns Assessment Noted Time PHQ-9 Depression Total Score: 16 024 10:59 AM EDT documented as of this encounter Care Teams Disposition Clerk Relationship Specialty Start Date End Date Sesar Pereyra MD [address] [place] [address] PCP - General Internal Medicine 03/01/21 [facility] 03/22/24 documented as of this encounter
--- OUTSIDE RECORDS SUMMARY | 2024-06-19 15:56 | XMS_ITS | Encounter Summary ---
Author Organization [employer] Address [address] [facility] 7t [place] [address] Care Team Providers Care Soda Maker Name Role Phone Sesar Pereyra MD Primary Care Provider +1- [phone] Reason for Visit * Reason Comments Med Refill Encounter Details Date Type Department Care Team ([facility] st Contact Info) Description 10/30/2023 Refill [facility] MED & PEDS [address] [place], [place] [phone] Sesar Pereyra MD [address] [place] [address] PVD (peripheral vascular disease) (CMS/HCC); Longstanding persistent [...] Upcoming Encounters Date Type Department Care Team ([facility] st Contact Info) Description 09/11/2024 10:30 AM EDT Office Visit [facility] MED [facility] PEDS [address] [place] [address] Sesar Pereyra MD [address] [place] [address] documented as of this encounter Visit Diagnoses Diagnosis PVD (peripheral vascular disease) (CMS/HCC) Unspecified peripheral vascular disease Longstanding persistent atrial fibrillation (CMS/HCC) documented in this encounter Additional Health Concerns Assessment Noted Time PHQ-9 Depression Total Score: 16 024 10:59 AM EDT documented as of this encounter Care Teams Soda Maker Relationship Specialty Start Date End Date Sesar Pereyra MD [address] [place] [address] PCP - General Internal Medicine [facility] documented as of this encounter
--- OUTSIDE RECORDS SUMMARY | 2024-06-19 15:56 | XMS_ITS | Encounter Summary ---
Author Organization [employer] Address [address] [facility] 7t [place] [address] Care Team Providers Care End Stapler Name Role Phone Sesar Pereyra MD Primary Care Provider +1- [phone] Reason for Visit * Reason Onset Date Comments Referral 01/02/2024 Encounter Details Date Type Department Care Team ([facility] st Contact Info) Description 01/02/2024 Telephone [facility] MEDICINE [address] [place] [address] Sesar Pereyra MD [address] [place] [address] Referral Social History Tobacco Use Types Packs/Day [...] - 01/02/2024 10:48 AM EDT Tc from [place] the patients EC requesting a referral for a gerontologist and would like to be sent to at [facility] [place] documented in this encounter Plan of Treatment Upcoming Encounters Date Type Department Care Team (Late st Contact Info) Description 09/11/2024 10:30 AM EDT Office Visit [facility] MED & PEDS [address] [place] [address] Sesar Pereyra MD [address] [place] [address] documented as of this encounter Visit Diagnoses Not on filedocumented in this encounter Additional Health Concerns Assessment Noted Time PHQ-9 Depression Total Score: 16 024 10:59 AM EDT documented as of this encounter Care Teams End Stapler Relationship Specialty Start Date End Date Sesar Pereyra MD [address] [place], [place] [address] [address] PCP - General Internal Medicine 03/01/21 [facility] 03/22/24 documented as of this encounter
--- OUTSIDE RECORDS SUMMARY | 2024-06-19 15:56 | XMS_ITS | Encounter Summary ---
Author Organization [facility] Address [address] [place] [address] Care Team Providers Care Early Morning Name Role Phone Annalee Jones MD Primary Care Provider Un available Yolande Nicholas DO Primary Care Pro vider Unavailable Anuj Priest DO Primary Care Provider Judy vailable [facility], Pcp Primary Care Provider Unavailabl e Encounter Details Date Type Department Care Team Description 04/27/2018 Hospital Medical Records [address] [place] [id number] [place] [address] Social History Tobacco Use Types Packs/Day Years [...] on filedocumented in this encounter Care Teams Early Morning Relationship Specialty Start Date End Date Annalee Jones MD PCP - General Internal Medicine 01/06/17 9 Yolande Nicholas DO PCP - General Internal Medicine 12/03/18 10/08/20 Anuj Priest DO PCP - General Internal Medicine 10/09/20 2 Jj, Pcp PCP - General Internal Medicine 06/17/21 documented as of this encounter
--- OUTSIDE RECORDS SUMMARY | 2024-06-19 15:56 | XMS_ITS | Encounter Summary ---
Author Organization [facility] Address [address] [place] [address] Care Team Providers Care Floor Refinisher Name Role Phone Yolande Nicholas DO Primary Care Pro vider Unavailable Anuj Priest DO Primary Care Provider [facility], Pcp Primary Care Provider Unavailabl e Reason for Visit * Reason Onset Date Comments Mychart Rx Refill 02/15/2019 Encounter Details Date Type Department Care Team Description 02/15/2019 Refill Adult Medicine [facility] [address] [place] [address] [facility] [address] [place] [address] Mychart Rx Refill Social History Tobacco Use [...] 7:54 AM EDTFrom: Alex Nettles To: MELITON Lombadro Sent: 02/15/2019 7:53 AM EDT Subject: Medication Renewal Request Original authorizing provider: MELITON Lombardo would like a refill of the following medications: lisinopril (PRINIVIL,ZESTRIL) 20 MG tablet [MELITON Lombardo] Preferred pharmacy: [facility] [address] [place] AT Comment: Need to have a refill documented in this encounter Plan of Treatment Not on file documented as of this encounter Visit Diagnoses Not on filedocumented in this encounter Care Teams Floor Refinisher Relationship Specialty Start Date End Date Yolande Nicholas DO PCP - General Internal Medicine 12/03/18 10/08/20 Anuj Priest DO PCP - General Internal Medicine 10/09/20 2 [facility], Pcp PCP - General Internal Medicine 06/17/21 documented as of this encounter
--- OUTSIDE RECORDS SUMMARY | 2024-06-19 15:56 | XMS_ITS | Encounter Summary ---
Author [facility] Address [address] [place] [address] Care Team Providers Care Die Developer Name Role Phone Annalee Jones MD Primary Care Provider Un available Yolande Nicholas DO Primary Care Pro vider Unavailable Anuj Priest DO Primary Care Provider Judy [facility], Pcp Primary Care Provider Unavailabl e Reason for Visit * Reason Onset Date Comments Washer Engineer Feedback 08/27/2018 ortho Encounter Details Date Type Department Care Team Description 08/27/2018 Telephone Adult Medicine [address] [address] [facility] [address] [place] [address] Washer Engineer Feedback (ortho) Social History Tobacco Use Types Packs/Day Years Used Date Smoking Tobacco: Former Cigarettes 1 35 Q uit: 07/26/2005 Smokeless Tobacco: Never Alcohol Use Standard Drinks/Week Comments No 0 (1 standard drink = 0.6 oz pur e alcohol) prior heavy stopped 3. Sex Assigned at Date Recorded Not on file documented as of this encounter Miscellaneous Notes * Telephone Encounter - Shana Junaid - 08/27/2018 2:18 PM EDT ELIDIA Haley, Patient is scheduled tomorrow 08/28/18 at [address] Mcguire for sacrum fracture. Patient is awareand he will bring a disc of the MRI [facility] Merchandising Coordinator [facility] Department documented in this encounter Plan of Treatment Not on file documented as of this encounter Visit Diagnoses Not on filedocumented in this encounter Care Teams Die Developer Relationship Specialty Start Date End Date Annalee Jones MD PCP - General Internal Medicine 01/06/17 9 Yolande Nicholas DO PCP - General Internal Medicine 12/03/18 10/08/20 Anuj Priest DO PCP - General Internal Medicine 10/09/20 2 [facility], Pcp PCP - General Internal Medicine 06/17/21 documented as of this encounter
--- OUTSIDE RECORDS SUMMARY | 2024-06-19 15:56 | XMS_ITS | Encounter Summary ---
Author [facility] Address [address] [place] [address] Care Team Providers Care Obiee Consultant Name Role Phone Annalee Jones MD Primary Care Provider Un available Yolande Nicholas DO Primary Care Pro vider Unavailable Anuj Priest DO Primary Care Provider Judy vailable [facility], Pcp Primary Care Provider Unavailabl e Encounter Details Date Type Department Care Team Description 04/24/2018 Hospital Medical Records [address] [place] [address] Thomas Moise MD Social History Tobacco Use [...] on filedocumented in this encounter Care Teams Obiee Consultant Relationship Specialty Start Date End Date Annalee Jones MD PCP - General Internal Medicine 01/06/17 9 Yolande Nicholas DO PCP - General Internal Medicine 12/03/18 10/08/20 Anuj Priest DO PCP - General Internal Medicine 10/09/20 2 Jj, Pcp PCP - General Internal Medicine 06/17/21 documented as of this encounter
--- OUTSIDE RECORDS SUMMARY | 2024-06-19 15:56 | XMS_ITS | Encounter Summary ---
Author Organization [facility] Address [address] [place] [address] Care Team Providers Care Partridge Farmer Name Role Phone Anuj Priest DO Primary Care Provider Judy vailable [facility], Pcp Primary Care Provider Unavailabl e Encounter Details Date Type Department Care Team Description 06/10/2021 Telephone Adult Medicine [facility] [address] [place] [address] Anuj Priest DO Social History Tobacco Use [...] on filedocumented in this encounter Care Teams Partridge Farmer Relationship Specialty Start Date End Date Anuj Priest DO PCP - General Internal Medicine 10/09/20 2 [facility], Pcp PCP - General Internal Medicine 06/17/21 documented as of this encounter
--- OUTSIDE RECORDS SUMMARY | 2024-06-19 15:56 | XMS_ITS | Encounter Summary ---
Author Organization [facility] Address [address] [place] [address] Care Team Providers Care Eye Dropper Assembler Name Role Phone Yolande Nicholas DO Primary Care Pro vider Unavailable Anuj Priest DO Primary Care Provider [facility], Pcp Primary Care Provider [facility] Encounter Details Date Type Department Care Team Description 03/30/2020 Pt. Non Urgent Medic al Question Adult Medicine [address] [address] Yolande Nicholas DO Social History Tobacco Use [...] Progress Notes * Yolande Banegas DO - 03/30/2020 6:48 PM EST Cardiac rehab referrals would need to come from cardiology (usually post CABG) post cath documented in this encounter Miscellaneous Notes * Telephone Encounter - Marisa Soni M.A. - 03/30/2020 3:02 PM ESTFrom: Alex Nettles To: Yolande Banegas DO Sent: 03/30/2020 1:20 PM EST Subject: PT for Arun Nettles Madison Walters, [facility] has recommended that Arun receive P.T. [facility]AS[facility]. However, the [facility] has no openings until May. I would like to have Arun attend the Cardiac Rehab P.T. program at [facility]. His muscles are atrophying and he just shuffles when he walks. I have heard very good reports from friends about the [facility] Cardiac Rehab. program and would like Arun to be referred there as soon as possibleso he can begin work on strengthening his leg muscles. Arun is very eager to get started...a good attitude finally! Thank you, Ame documented in this encounter Plan of Treatment Not on file documented as of this encounter Visit Diagnoses Not on filedocumented in this encounter Care Teams Eye Dropper Assembler Relationship Specialty Start Date End Date Yolande Nicholas DO PCP - General Internal Medicine 12/03/18 10/08/20 Anuj Priest DO PCP - General Internal Medicine 10/09/[address] [place] [address], Pcp PCP - General Internal Medicine 06/17/21 documented as of this encounter
--- OUTSIDE RECORDS SUMMARY | 2024-06-19 15:56 | XMS_ITS | Encounter Summary ---
Author Organization [employer] Address [address] [facility] [address] [place] [address] Care Team Providers Care Manager Music Name Role Phone Sesar Pereyra MD Primary Care Provider +1 [phone] Reason for Visit * Reason Comments Med Refill Encounter Details Date Type Department Care Team ([facility] Contact Info) Description 10/26/2022 Refill [facility] MED & PEDS [address] [place] [address] Sesar Pereyra MD [address] [place] [address] Social History Tobacco Use Types Packs/Day Years [...] Upcoming Encounters Date Type Department Care Team ([facility] Contact Info) Description 09/11/2024 10:30 AM EDT Office Visit [facility] [address] [place] [address] Sesar Pereyra MD [address] [place] [address] documented as of this encounter Visit Diagnoses Not on filedocumented in this encounter Care Teams Manager Music Relationship Specialty Start Date End Date Sesar Pereyra MD [address] [place] [address] PCP - General Internal Medicine 03/01/21 [facility] 03/22/24 documented as of this encounter
--- OUTSIDE RECORDS SUMMARY | 2024-06-19 15:56 | XMS_ITS | Encounter Summary ---
Author Organization [employer] Address [address] [facility] [address] [place] [address] Care Team Providers Care Diamond Picker Name Role Phone Sesar Pereyra MD Primary Care Provider +1 [phone] Reason for Visit * Reason Comments Med Refill Encounter Details Date Type Department Care Team ([facility] Contact Info) Description 10/19/2022 Refill [facility] PEDS [address] [place] [address] Sesar Pereyra MD [address] [place] [address] Social History Tobacco Use Types Packs/Day Years [...] Department Care Team ([facility] Contact Info) Description 09/11/2024 10:30 AM EDT Office Visit [facility] MED & PEDS [address] [place] [address] Sesar Pereyra MD [address] [place] [address] documented as of this encounter Visit Diagnoses Not on filedocumented in this encounter Care Teams Diamond Picker Relationship Specialty Start Date End Date Sesar Pereyra MD [address] [place] [address] PCP - General Internal Medicine 03/01/21 [facility] 03/22/24 documented as of this encounter
--- OUTSIDE RECORDS SUMMARY | 2024-06-19 15:56 | XMS_ITS | Encounter Summary ---
Author Organization [employer] Address [address] [facility] 7[address] [place] [address] Care Team Providers Care Paralegal Instructor Name Role Phone Sesar Pereyra MD Primary Care Provider [phone]- [phone] Reason for Visit * Reason Onset Date Comments Med Refill 05/27/2024 Encounter Details Date Type Department Care Team ([facility] st Contact Info) Description 05/27/2024 Refill [facility] MED & PEDS [address] [place] [address] Sesar Pereyra MD [address] [place] [address] Social History Tobacco Use Types Packs/Day Years [...] 7.5 MG tablet To be sent to: [facility] - [place], [place] - [address] [place] [address] [place] documented in this encounter Plan of Treatment Upcoming Encounters Date Type Department Care Team (Late st Contact Info) Description 09/11/2024 10:30 AM EDT Office Visit [facility] PEDS [address] [place] [address] Sesar Pereyra MD [address] [place] [address] documented as of this encounter Visit Diagnoses Not on filedocumented in this encounter Additional Health Concerns Assessment Noted Time PHQ-9 Depression Total Score: 16 024 10:59 AM EDT documented as of this encounter Care Teams Paralegal Instructor Relationship Specialty Start Date End Date Sesar Pereyra MD [address] [place] [address] PCP - General Internal Medicine 03/01/21 [facility] 03/22/24 documented as of this encounter
--- OUTSIDE RECORDS SUMMARY | 2024-06-19 15:56 | XMS_ITS | Encounter Summary ---
Author Organization [facility] Address [address] [place] [address] Care Team Providers Care Electronic Commerce Specialist Name Role Phone Yolande Nicholas DO Primary Care Pro vider Unavailable Anuj Priest DO Primary Care Provider [facility], Pcp Primary Care Provider Unavailabl e Reason for Visit * Reason Onset Date Comments Faxed Order 03/29/2020 Encounter Details Date Type Department Care Team Description 03/29/2020 Telephone Adult [address] [address] Yolande Nicholas DO Faxed Order Social History [...] TO BE SIGN AND FAX BACK TO [phone]. documented in this encounter Plan of Treatment Not on file documented as of this encounter Visit Diagnoses Not on filedocumented in this encounter Care Teams Electronic Commerce Specialist Relationship Specialty Start Date End Date Yolande Nicholas DO PCP - General Internal Medicine 12/03/18 10/08/20 Anuj Priest DO PCP - General Internal Medicine 10/09/20 2 [facility], Pcp PCP - General Internal Medicine 06/17/21 documented as of this encounter
--- OUTSIDE RECORDS SUMMARY | 2024-06-19 15:56 | XMS_ITS | Encounter Summary ---
Author Organization [facility] Address [address] [place] [address] Care Team Providers Care Medical Physics Professor Name Role Phone Yolande Nicholas DO Primary Care Pro vider Unavailable Anuj Priest DO Primary Care Provider [facility], Pcp Primary Care Provider Unavailabl e Encounter Details Date Type Department Care Team Description 03/13/2020 Pt. Non Urgent Medic al Question Adult Medicine [address] [address] Yolnade Nicholas DO Social History Tobacco Use Types [...] filedocumented in this encounter Care Teams Medical Physics Professor Relationship Specialty Start Date End Date Yolande Nicholas DO PCP - General Internal Medicine 12/03/18 10/08/20 Anuj Priest DO PCP - General Internal Medicine 10/09/20 2 [facility], Pcp PCP - General Internal Medicine 06/17/21 documented as of this encounter
--- OUTSIDE RECORDS SUMMARY | 2024-06-19 15:56 | XMS_ITS | Clinical Summary ---
Author Organization Unknown Care Team Providers Care Boring Mill Set Up Operator Vertical Name Role Phone MARCO RAMIREZ, POOJA Unavailable Unavailabl e JIMENEZ PT, COURTNEY Unavailable Unavailable SPAFFORD OT, DAGO Unavailable Unavailable CONDINO FERNY/CALZADA, ANGUS Unavailable Unav ailable FECTEAU REMOTE CODERS, JANETT Unavailable Unavailable LESLYE RN, DAGOBERTO Unavailable Unavailab abraham CARRION NOVELTY CHAIN MAKER, ANTONIO Unavailable Unavailable JOSE RAFAEL SKAGGSN, YORDAN Unavailable Unavail able Payers Payer Name Policy Type Policy Number Effective Date Expira tion Date [facility] [id number] Problems Condition Name Condition Details Condition Category [...] 2023-05 00:00: 00 ATHSCL HEART DISEASE OF [place] CORONARY ARTERY W/O ANG PCTRS Active 05-01 [...] 2023-05 00:00: 00 05-16 23:59 :00 No [id number] PAIN 15 mg EVERY 6 HOURS NEEDED 15 mg EVERY 6 HOURS NEEDED (route: oral) Med Classific ation: Analgesic , Anti-infl ammatory or Antipyret ic clonazepam 0.5 mg tablet 2023-05 00:00: 00 Yes [id number] ANXIETY 0.5 mg 2 TIMES DAILY 0.5 mg 2 TIMES DAILY (route: oral) Med Classific ation: Central Nervous System Agents lisinopril 40 mg tablet 2023-05 00:00: 00 03-21 23:59 :00 No [id number] CAD 40 mg DAILY 40 mg DAILY (route: oral) Med Classific ation: Cardiovas cular Therapy Agents atorvastati n 80 mg tablet 2023-05 00:00: 00 Yes [id number] HYPERTENSIO N 80 mg DAILY 80 mg DAILY (route: oral) Med Classific ation: Cardiovas cular Therapy Agents cilostazol 50 mg tablet 2023-05 00:00: 00 Yes [id number] HYPERTENSIO N 50 mg 2 TIMES DAILY 50 mg 2 TIMES DAILY (route: oral) Med Classific ation: Hematolog ical Agents clopidogrel 75 mg tablet 2023-05 00:00: 00 03-21 23:59 :00 No [id number] CORONARY ARTERY DISEASE 75 mg DAILY 75 mg DAILY (route: oral) Med Classific ation: Hematolog ical Agents Eliquis 5 mg tablet 2023-05 00:00: 00 Yes [id number] ANTI ARRHYTHMIC 5 mg 2 TIMES DAILY 5 mg 2 TIMES DAILY (route: oral) Med Classific ation: Hematolog ical Agents furosemide 40 mg tablet 2023-05 00:00: 00 03-21 23:59 :00 No [id number] BPH 40 mg DAILY 40 mg DAILY (route: oral) Alternate Route: INTRA-MUS CULAR. Med Classific ation: Cardiovas cular Therapy Agents metoprolol tartrate 50 mg tablet 2023-05 00:00: 00 03-22 23:59 :00 No [id number] CAD 50 mg DAILY 50 mg DAILY (route: oral) Med Classific ation: Cardiovas cular Therapy Agents quetiapine 25 mg tablet 2023-05 00:00: 00 Yes [id number] MOOD STABILIZER 25 mg 2 TIMES DAILY 25 mg 2 TIMES DAILY (route: oral) Med Classific ation: Central Nervous System Agents sertraline 50 mg tablet 2023-05 00:00: 00 Yes [id number] MOOD STABILIZER 50 mg DAILY 50 mg DAILY (route: oral) Med Classific ation: Central Nervous System Agents tamsulosin 0.4 mg capsule 2023-05 00:00: 00 Yes [id number] BPH 0.4 mg DAILY 0.4 mg DAILY (route: oral) Med Classific ation: Genitouri nary Therapy docusate sodium 100 mg tablet 2023-05 00:00: 00 Yes [id number] CONSTIPATIO N 100 mg DAILY 100 mg DAILY (route: oral) Med Classific ation: Gastroint estinal Therapy Agents gabapentin 100 mg capsule 2023-05 00:00: 00 Yes [id number] PAIN 1-3 capsule BEDTIME 1-3 capsule BEDTIME (route: oral) Med Classific ation: Central Nervous System Agents metoprolol tartrate 25 mg tablet 2023-05 00:00: 00 03-27 16:09 :43.1 53 No [id number] HYPERTENSIO N 25 mg 2 TIMES DAILY 25 mg 2 TIMES DAILY (route: oral) Med Classific ation: Cardiovas cular Therapy Agents Multaq 400 mg tablet 2023-05 00:00: 00 Yes [id number] ANTIARRHYTH MICHAEL 400 mg 2 TIMES DAILY 400 mg 2 TIMES DAILY (route: oral) Med Classific ation: Cardiovas cular Therapy Agents furosemide 40 mg tablet 2023-05 00:00: 00 Yes [id number] edema 1 tablet DAILY 1 tablet DAILY (route: oral) Med Classific ation: Cardiovas cular Therapy Agents dextroamphe tamine-amph etamine 7.5 mg tablet 2023-05 00:00: 00 Yes [id number] attention 1 tablet DAILY 1 tablet DAILY (route: oral) Med Classific ation: Central Nervous System Agents metoprolol tartrate 25 mg tablet 2023-05 00:00: 00 Yes [id number] heart rate 0.5 tablet 2 TIMES DAILY 0.5 tablet 2 TIMES DAILY (route: oral) Med Classific ation: Cardiovas cular Therapy Agents cephalexin 500 mg capsule 2023-05 00:00: 00 04-10 23:59 :00 No [id number] CELLULITIS LLL 500 mg 4 TIMES DAILY 500 mg 4 TIMES DAILY (route: oral) Med Classific ation: Anti-Infe ctive Agents hydralazine 25 mg tablet 2023-05 00:00: 00 Yes [id number] HTN 25 mg 2 TIMES DAILY 25 [...] CONSULTING PHYSICIANS. RN TO OBSERVE AND ASSESS, DECORATOR STORE/DRAFTER MARINE TO OBSERVE FOR RISK FOR FALLS AND INSTRUCT IN FALL PREVENTION, HOME SAFETY, MEDICATION MANAGEMENT, INFECTION PREVENTION, AND NUTRITION MANAGEMENT. RN/DECORATOR STORE/DRAFTER MARINE NURSE MAY PERFORM O2 SATURATION LEVEL ON ADMISSION AND PRN FOR RN TO ASSESS/DECORATOR STORE TO OBSERVE PATIENT, WITH NOTIFICATION TO THE PHYSICIAN IF SATURATION IS 90% IN THE ABSENCE OF MORE SPECIFIC PARAMETERS FROM THE PHYSICIAN. AGENCY MAY PERFORM A RESUMPTION OF CARE VISIT FOLLOWING ANY HOSPITAL ADMISSION. RN/DECORATOR STORE/DRAFTER MARINE TO MONITOR CO-MORBID CONDITIONS LISTED ON THE PLAN OF CARE AND ANY NEW CONDITIONS THAT PRESENT THEMSELVES DURING THIS EPISODE TO IDENTIFY CHANGES AND INTERVENE TO MINIMIZE COMPLICATIONS. [code = RN TO OBSERVE, ASSESS, EVALUATE, AND DEVELOP AN INDIVIDUALIZED PLAN OF CARE. AGENCY MAY ACCEPT ORDERS FROM CONSULTING PHYSICIANS. RN TO OBSERVE AND ASSESS, DECORATOR STORE/DRAFTER MARINE TO OBSERVE FOR RISK FOR FALLS AND INSTRUCT IN FALL PREVENTION, HOME SAFETY, MEDICATION MANAGEMENT, INFECTION PREVENTION, AND NUTRITION MANAGEMENT. RN/DECORATOR STORE/DRAFTER MARINE NURSE MAY PERFORM O2 SATURATION LEVEL ON ADMISSION AND PRN FOR RN TO ASSESS/DECORATOR STORE TO OBSERVE PATIENT, WITH NOTIFICATION TO THE PHYSICIAN IF SATURATION IS 90% IN THE ABSENCE OF MORE SPECIFIC PARAMETERS FROM THE PHYSICIAN. AGENCY MAY PERFORM A RESUMPTION OF CARE VISIT FOLLOWING ANY HOSPITAL ADMISSION. RN/DECORATOR STORE/DRAFTER MARINE TO MONITOR CO-MORBID CONDITIONS LISTED ON THE PLAN OF CARE AND ANY NEW CONDITIONS THAT PRESENT THEMSELVES DURING THIS EPISODE TO IDENTIFY CHANGES AND INTERVENE TO MINIMIZE COMPLICATIONS.] Future Scheduled Test MEDICATION MANAGEMENT; RN/DECORATOR STORE/DRAFTER MARINE TO REVIEW MEDICATIONS FOR INTERACTIONS, EFFECTIVENESS OF DRUG THERAPY, AND SIGNS/SYMPTOMS OF ADVERSE REACTIONS. MAY INSTRUCT AND REINFORCE MEDICATION TEACHING RELATED TO THE USE OF MEDICATIONS, DOSAGE, FREQUENCY, PURPOSE, SIDE EFFECTS, AND TO REPORT COMPLICATIONS. HELP SET UP BUBBLE PACKS [code = MEDICATION MANAGEMENT; RN/DECORATOR STORE/DRAFTER MARINE TO REVIEW MEDICATIONS FOR INTERACTIONS, EFFECTIVENESS OF DRUG THERAPY, AND SIGNS/SYMPTOMS OF ADVERSE REACTIONS. MAY INSTRUCT AND REINFORCE MEDICATION TEACHING RELATED TO THE USE OF MEDICATIONS, DOSAGE, FREQUENCY, PURPOSE, SIDE EFFECTS, AND TO REPORT COMPLICATIONS. HELP SET UP BUBBLE PACKS] Future Scheduled Test RISK FOR H OSPITALIZATION; RN TO ASSESS/TEACH, DRAFTER MARINE/DECORATOR STORE TO OBSERVE/TEACH PATIENT/CAREGIVER ON RISK FOR HOSPITALIZATION/EMERGENCY ROOM VISITS, TEACH SIGNS AND SYMPTOMS THAT PUT PATIENT AT RISK, WHEN TO NOTIFY NURSE/PHYSICIAN OF COMPLICATIONS/DECLINE, AND WHEN TO CALL 911. [code = RISK FOR HOSPITALIZATION; RN TO ASSESS/TEACH, DRAFTER MARINE/DECORATOR STORE TO OBSERVE/TEACH PATIENT/CAREGIVER ON RISK FOR HOSPITALIZATION/EMERGENCY ROOM VISITS, TEACH SIGNS AND SYMPTOMS THAT PUT PATIENT AT RISK, WHEN TO NOTIFY NURSE/PHYSICIAN OF COMPLICATIONS/DECLINE, AND WHEN TO CALL 911.] Future Scheduled Test CARDIOVASC ULAR SYSTEM; RN TO ASSESS/TEACH, DECORATOR STORE/DRAFTER MARINE TO OBSERVE/TEACH RELATED TO ALTERED CARDIOVASCULAR STATUS TO MINIMIZE COMPLICATIONS AND REDUCE HOSPITALIZATION. [code = CARDIOVASCULAR SYSTEM; RN TO ASSESS/TEACH, DECORATOR STORE/DRAFTER MARINE TO OBSERVE/TEACH RELATED TO ALTERED CARDIOVASCULAR STATUS TO MINIMIZE COMPLICATIONS AND REDUCE HOSPITALIZATION.] Future Scheduled Test HYPERTENSI ON MANAGEMENT; RN TO ASSESS AND TEACH, DECORATOR STORE/DRAFTER MARINE TO OBSERVE AND TEACH WARNING SIGNS AND SYMPTOMS TO AVOID HOSPITALIZATION. [code = HYPERTENSION MANAGEMENT; RN TO ASSESS AND TEACH, DECORATOR STORE/DRAFTER MARINE TO OBSERVE AND TEACH WARNING SIGNS AND SYMPTOMS TO AVOID HOSPITALIZATION.] Future Scheduled Test ARRHYTHMIA MANAGEMENT; RN TO ASSESS AND TEACH, DECORATOR STORE/DRAFTER MARINE TO OBSERVE AND TEACH WARNING SIGNS AND SYMPTOMS TO AVOID HOSPITALIZATION. [code = ARRHYTHMIA MANAGEMENT; RN TO ASSESS AND TEACH, DECORATOR STORE/DRAFTER MARINE TO OBSERVE AND TEACH WARNING SIGNS AND SYMPTOMS TO AVOID HOSPITALIZATION.] Future Scheduled Test SKIN INTEG RITY RN TO ASSESS AND TEACH, DECORATOR STORE/DRAFTER MARINE TO OBSERVE AND TEACH INTEGUMENTARY STATUS TO IDENTIFY CHANGES AND INTERVENE TO MINIMIZE COMPLICATIONS. PROVIDE SKILLED TEACHING OF GENERAL WOUND AND SKIN CARE AND PREVENTION RELATED TO POTENTIAL FOR ALTERED SKIN INTEGRITY [code = SKIN INTEGRITY RN TO ASSESS AND TEACH, DECORATOR STORE/DRAFTER MARINE TO OBSERVE AND TEACH INTEGUMENTARY STATUS TO IDENTIFY CHANGES AND INTERVENE TO MINIMIZE COMPLICATIONS. PROVIDE SKILLED TEACHING OF GENERAL WOUND AND SKIN CARE AND PREVENTION RELATED TO POTENTIAL FOR ALTERED SKIN INTEGRITY ] Future Scheduled Test PAIN MANAG EMENT; RN TO ASSESS AND TEACH, DRAFTER MARINE/DECORATOR STORE TO OBSERVE AND TEACH AND PROVIDE EDUCATION ON PAIN MANAGEMENT TECHNIQUES. [code = PAIN MANAGEMENT; RN TO ASSESS AND TEACH, DRAFTER MARINE/DECORATOR STORE TO OBSERVE AND TEACH AND PROVIDE EDUCATION ON PAIN MANAGEMENT TECHNIQUES.] Future Scheduled Test FALL REDUC TION MANAGEMENT; RN TO ASSESS AND OBSERVE, DECORATOR STORE/DRAFTER MARINE TO OBSERVE FALL RISK FACTORS AND EDUCATE PATIENT/CAREGIVER ON STRATEGIES TO MINIMIZE THE RISK OF FALLING. [code = FALL REDUCTION MANAGEMENT; RN TO ASSESS AND OBSERVE, DECORATOR STORE/DRAFTER MARINE TO OBSERVE FALL RISK FACTORS AND EDUCATE PATIENT/CAREGIVER ON STRATEGIES TO MINIMIZE THE RISK OF FALLING.] Future Scheduled Test RESPIRATOR Y SYSTEM MANAGEMENT; RN TO ASSESS AND TEACH, DECORATOR STORE/DRAFTER MARINE TO OBSERVE AND TEACH RELATED TO ALTERED RESPIRATORY STATUS TO MINIMIZE COMPLICATIONS AND REDUCE HOSPITALIZATION. [code = RESPIRATORY SYSTEM MANAGEMENT; RN TO ASSESS AND TEACH, DECORATOR STORE/DRAFTER MARINE TO OBSERVE AND TEACH RELATED TO ALTERED [...] End Date/Time Encounter Type Admission Type Attending [facility] Care Department Encounter ID Discharge Date Discharge Status Discharge Condition Discharge Reason Percent Goals Met 2024-03-22 00:00:00 2024-07-19 00:00:00 Outpatient JOSE MARIARTIFIC DAGOBERTO NEIL [facility] [id number] .00
--- OUTSIDE RECORDS SUMMARY | 2024-06-19 15:56 | XMS_ITS | Encounter Summary ---
Author Organization [facility] Address [address] [place] [address] Care Team Providers Care Bench Scientist Name Role Phone Yolande Nicholas DO Primary Care Pro vider Unavailable Anuj Priest DO Primary Care Provider [facility], Pcp Primary Care Provider Unavailabl e Reason for Visit * Reason Onset Date Comments Faxed Order 03/08/2020 Encounter Details Date Type Department Care Team Description 03/08/2020 Telephone Adult Medicine [address] [address] Yolande Nicholas DO Faxed Order Social History [...] review, sign, date, and fax back to [phone] * Telephone Encounter - Gerri Parra - 03/08/2020 2:16 PM EST [facility] IS FAXING ORDERS TO BE SIGN AND FAX BACK TO [phone]. documented in this encounter Plan of Treatment Not on file documented as of this encounter Visit Diagnoses Not on filedocumented in this encounter Care Teams Bench Scientist Relationship Specialty Start Date End Date Yolande Nicholas DO PCP - General Internal Medicine 12/03/18 10/08/20 Anuj Priest DO PCP - General Internal Medicine 10/09/[address] [place] [address], Pcp PCP - General Internal Medicine 06/17/21 documented as of this encounter
--- OUTSIDE RECORDS SUMMARY | 2024-06-19 15:56 | XMS_ITS | Encounter Summary ---
Author Organization [employer] Address [address] [facility] [address] [place] [address] Care Team Providers Care Cocktail Lounge Manager Name Role Phone Sesar Pereyra MD Primary Care Provider +1- [phone] Encounter Details Date Type Department Care Team (Late st Contact Info) Description 05/30/2024 Telephone [facility] MEDICINE [address] [place] [address] Sesar Pereyra MD [address] [place] [address] Social History Tobacco Use Types Packs/Day Years [...] [facility] [address] [place] [address] Sesar Pereyra MD [address] [place] [address] documented as of this encounter Visit Diagnoses Not on filedocumented in this encounter Additional Health Concerns Assessment Noted Time PHQ-9 Depression Total Score: 16 024 10:59 AM EDT documented as of this encounter Care Teams Cocktail Lounge Manager Relationship Specialty Start Date End Date Sesar Pereyra MD [address] [place] [address] PCP - General Internal Medicine [facility] 03/[facility] documented as of this encounter
--- OUTSIDE RECORDS SUMMARY | 2024-06-19 15:56 | XMS_ITS | Encounter Summary ---
Author Organization [employer] Address [address] [facility] [address] [place] [address] Care Team Providers Care Meter/Relay Technician Name Role Phone Sesar Pereyra MD Primary Care Provider +[phone]- [phone] Encounter Details Date Type Department Care Team ([facility] [address] Contact Info) Description 10/13/2022 Orders Only [facility] MED & PEDS [address] [place] [address] Sesar Pereyra MD [address] [place] [address] Social History Tobacco Use Types Packs/Day Years [...] [facility] [address] [place] [address] Sesar Pereyra MD [address] [place] [address] documented as of this encounter Visit Diagnoses Not on filedocumented in this encounter Care Teams Meter/Relay Technician Relationship Specialty Start Date End Date Sesar Pereyra MD [address] [place] [address] PCP - General Internal Medicine 03/01/21 [facility] 03/22/24 documented as of this encounter
--- OUTSIDE RECORDS SUMMARY | 2024-06-19 15:56 | XMS_ITS | Encounter Summary ---
Author Organization [employer] Address [address] [facility] [address] [place] [address] Care Team Providers Care Business Dean Name Role Phone Sesar Pereyra MD Primary Care Provider +1- [phone] Reason for Visit * Reason Onset Date Comments FYI 10/07/2022 Encounter Details Date Type Department Care Team ([facility] st Contact Info) Description 10/07/2022 Telephone [facility] MEDICINE [address] [place] [address] Sesar Pereyra MD [address] [place] [address] FYI Social History Tobacco Use Types Packs/Day [...] any questions or concerns please contact at [phone] documented in this encounter Plan of Treatment Upcoming Encounters Date Type Department Care Team ([facility] st Contact Info) Description 09/11/2024 10:30 AM EDT Office Visit [facility] MED & PEDS [address] [place] [address] Sesar Pereyra MD [address] [place], [place] [phone] documented as of this encounter Visit Diagnoses Not on filedocumented in this encounter Care Teams Business Dean Relationship Specialty Start Date End Date Sesar Pereyra MD [address] [place] [id number] PCP - General Internal Medicine 03/01/21 [facility] 03/22/24 documented as of this encounter
--- OUTSIDE RECORDS SUMMARY | 2024-06-19 15:56 | XMS_ITS | Clinical Summary ---
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 Father (Age 49) NE x 3, ET [place] Maternal Grandfather (Age [...] 02/19/2015, 02/19/2015, Additional history exists Care Teams Customer Equipment Engineer Relationship Specialty Start Date End Date Community, Pcp PCP - General Internal Medicine 06/17/21
--- OUTSIDE RECORDS SUMMARY | 2024-06-19 15:56 | XMS_ITS | Clinical Summary ---
Author Organization [employer] Address [address] [facility] 7t [place] [address] Care Team Providers Care Pellet Preparation Operator Name Role Phone Sesar Pereyra MD Primary Care Provider [phone] Allergies No known active allergies Medications clonazePAM [...] considered Sleep disorder 02/02/2015 Overview (01/22/2024): Saw [facility] sleep on 01/15/2015: Dr. Johnson Likely DILLAN sleep study ordered. Given that he has RLS, He may have periodic limb movement disorder which can be checked for in the study. Check ferritin. Will await sleep study. Depression with anxiety 04/01/2014 Overview (06/16/2022): Dr. Pradhan at [facility]. Is going to establish care at [...] Sees this doctor once a year at [facility]. Follows up with this facility every 6 months. Pure hypercholesterolemia 07/24/2009 Thoracic aortic aneurysm (TAA) 03/11/2009 Overview (01/22/2024): IMO update Seen by [facility]. 4.[address] 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 07/14/2005 Overview (01/22/2024): Stent on right and fem- fem bypass on left IMO update Depressive disorder 07/14/2005 Alcohol abuse, in remission 06/19/2005 Encounters Date Type Department Care Team Description 06/13/2024 1:00 PM EST Office Visit [facility] [address] [place] [address] Sesar Pereyra MD Kidney stone (Primary Dx); Primary hypertension; Low back pain at multiple sites; Tinnitus of right ear; Lower urinary tract symptoms 06/13/2024 Travel 06/12/2024 Orders Only GENERIC EXTERNAL DATA DEPARTMENT Provider, Generic External Data 05/30/[address] [address] Sesar Pereyra MD Lab Orders; Referral 05/30/2024 Telephone [facility] [address] [place] [address] Sesar Pereyra MD 05/28/2024 Telephone [facility] [address] [place] [address] Sesar Pereyra MD fyi 05/27/2024 Refill [facility] [address] [place] [address] Sesar Pereyra MD 05/23/[address] [address] Sesar Pereyra MD Medication Question 05/15/2024 Telephone [facility] [address] [place] [address] Sesar Pereyra MD 05/09/2024 Telephone [facility] [address] [place] [address] Verona Thompson, CLAUDIA 05/07/2024 9:15 AM EST Office Visit [facility] [address] [place] [address] Natasha Jiang MD Kidney stone (Primary Dx) 05/07/2024 Telephone [facility] [address] [place] [address] Natasha Jiang MD Medication Question 05/07/2024 Orders Only [facility] [address] [place] [address] Natasha Jiang MD 05/07/2024 Travel 05/06/2024 Telephone [facility] [address] [place] [address] Sesar Pereyra MD Nurse Triage 04/30/2024 Refill [facility] [address] [place] [address] Sesar Pereyra MD Longstanding persistent atrial fibrillation (CMS/HCC); PVD (peripheral vascular disease) (CMS/HCC) 04/29/2024 Orders Only [facility] [address] [place] [address] Sesar Pereyra MD Closed nondisplaced fracture of acromial end of right clavicle, initial encounter 04/29/2024 Telephone [facility] [address] [place] [address] Sesar Pereyra MD Nurse Triage 04/28/2024 Refill [facility] [address] [place] [address] Sesar Pereyra MD 04/26/2024 Refill [facility] [address] [place] [address] Sesar Pereyra MD Closed nondisplaced fracture of acromial end of right clavicle, initial encounter 04/26/2024 Telephone [facility] [address] [place] [address] Sesar Pereyra MD Med Refill 04/18/2024 Refill [facility] [address] [place] [address] Loyda Jacobson, CLAUDIA Essential hypertension; Closed nondisplaced fracture of acromial end of right clavicle, initial encounter 04/18/[address] [facility] [address] [place] [address] Sesar Pereyra MD Med Refill 04/11/2024 Refill [facility] [address] [place] [address] Sesar Pereyra MD 04/11/2024 Refill [facility] [address] [place] [address] Natasha Jiang MD Closed nondisplaced fracture of acromial end of right clavicle, initial encounter 04/11/2024 Travel 04/10/2024 Refill [facility] [address] [place] [address] Sesar Pereyra MD Closed nondisplaced fracture of acromial end of right clavicle, initial encounter 04/10/[address] [address] Sesar Pereyra MD Med Refill 04/03/2024 3:00 PM EST Office Visit [facility] [address] [place] [address] Lauren Vogel MD Cellulitis of left lower extremity (Primary Dx) 04/03/[address] [address] Sesar Pereyra MD Nurse Triage 04/02/[address] [address] Sesar Pereyra MD callback number; Medication Question 04/02/2024 Refill [facility] [address] [place] [address] Sesar Pereyra MD Closed nondisplaced fracture of acromial end of right clavicle, initial encounter 04/02/2024 Telephone [facility] [address] [place] [address] Sesar Pereyra MD Med Refill 04/02/2024 Orders Only [place] [facility] [address] [place] [address] Jazmyn Bates MD 04/01/2024 Orders Only [facility] [address] [place] [address] Sesar Pereyra MD Essential hypertension (Primary Dx) 03/27/2024 9:15 AM EST Office Visit [facility] [address] [place] [address] Sesar Pereyra MD Acute kidney injury (CMS/HCC) (Primary Dx); Closed nondisplaced fracture of acromial end of right clavicle, initial encounter; Longstanding persistent atrial fibrillation (CMS/HCC); Dizziness; Bradycardia 03/27/2024 Telephone [facility] [address] [place] [address] Analilia Mart, CLAUDIA Plan of care 03/27/2024 Travel 03/25/2024 Telephone [facility] [address] [place] [address] Sesar Pereyra MD Chart Prep 03/22/[address] [address] Sesar Pereyra MD Nurse Triage from Last [...] 09/11/2024 10:30 AM EDT Office Visit [facility] [address] [place] [address] Sesar Pereyra MD [address] [place] [address] Health Maintenance Due Date Last Done Comments [...] Creatinine, Serum 1.13 0.5 - 1.4 mg/dL [facility] Estimated Glomerular Filt Rate >60 [facility] Comment:Chronic Kidney Disea se: Estimated GFR < 60 mL/min/1.73v0Ywxdvg Kidney Disease: Estimated GFR < 15 mL/min/1.73m2 06/12/2024 12:0 9 PM EST 06/12/2024 12:14 PM EST us Generic External Data Provider LAB BLOOD ORDERAB LES Final Result Performing Organization Address [facility]/ZIP Co de Phone Number [facility] [address] [place] [address] [phone] * (ABNORMAL) BUN (Blood Urea Nitrogen) (06/12/2024 12:09 PM EST) Urea Nitrogen (BUN) 18(H) 9 - 16 mg/dL [facility] 06/12/2024 12:0 9 PM EST 06/12/2024 12:14 PM EST us Generic External Data Provider LAB BLOOD ORDERAB LES Final Result Performing Organization Address [facility]/ZIP Co de Phone Number [facility] [address] [place] [phone] * Calcium (06/12/2024 12:09 PM EST) Calcium 9.1 8.4 - 10.2 mg/dL [facility] 06/12/2024 12:0 9 PM EST 06/12/2024 12:14 PM EST Generic External Data Provider LAB BLOOD ORDERAB LES Final Result Performing Organization Address [facility] de Phone Number [facility] [address] [place] [address] [phone] * (ABNORMAL) Electrolyte Panel (06/12/2024 12:09 PM EST) Pathologist [facility] Sodium 142 135 - 145 mmol/L [facility] Potassium 4.0 3.3 - 5.1 mmol/L [facility] Comment:Slight Hemolysis.Int erpret result with caution. Chloride 109(H) 96 - 108 mmol/L [facility] Carbon Dioxide 24 22 - 29 mmol/L [facility] Anion Gap 13 12 - 20 [facility] 06/12/2024 12:0 9 PM EST 06/12/2024 12:14 PM EST Generic External Data Provider LAB BLOOD ORDERAB LES Final Result Performing Organization Address [facility] Phone Number [facility] [address] [place] [address] [phone] * XR KUB and Upright 2 Views (05/07/2024 10:21 AM EST) Anatomical Region Laterality Modality Radiographic Homa ging 05/07/2024 10:2 1 AM EST Narrative 05/07/2024 10:48 AM EST ? [facility] ?[address] ?[place] [address] ?XRay Report ? Signed ? Patient: Prawismaelki,Alex ?MR#: [id number] ?? [id number] ? : 1945 ?Acct:[id number] ? Age/Sex: 79 / M ?ADM Date: 01/07/25 ? Loc: HO.XRAY ? Attending Dr: Natasha Jiang MD ? Ordering Physician: Natasha Jiang MD ?? Date of Service: 05/07/24 ?? Procedure(s): XR KUB ?? Accession Number(s): [id number] ? cc: Sesar Pereyra MD; Natasha Jiang [...] 1021 ? TD/TT: 05/07/24 1040 ? Director Of Safety And Security: ? Procedure Note Hernandez, Image - 05/07/2024 [place] [address] XRay Report Signed Patient: Ronald Nettles#: [id number] : 1945cct:[id number] Age/Sex: 79 / MADM Date: 05/07/24 Loc: [facility]BETO Attending Dr: Natasha Jiang MD Ordering Physician: Natasha Jiang MD Date of Service: 05/07/24 Procedure(s): XR KUB Accession Number(s): [id number] cc: Sesar Pereyra MD; Natasha Jiang MD [...] 1045 DD/ 1021 TD/TT: 05/07/24 1040 Director Of Safety And Security: Natasha Jiang MD IMG XR PROCEDURES Edited [...] EST Heart rate 48 bpm. ??Sinus rhythm. ??[place]: 0 degrees. ??No sign of left atrial enlargement or right atrial enlargement. ??No sign of hypertrophy. ?? T wave inversion in aVL and aVF us Sesar Pereyra MD ECG ORDERABLES Final Resul t * (ABNORMAL) Basic Metabolic Panel (03/27/2024 11:00 AM EST) Sodium 141 135 - 145 mmol/L [facility] Potassium 4.8 3.3 - 5.1 mmol/L [facility] Comment:Slight Hemolysis.Int erpret result with caution. Chloride 109(H) 96 - 108 mmol/L [facility] Carbon Dioxide 21(L) 22 - 29 mmol/L [facility] Anion Gap 16 12 - 20 [facility] Urea Nitrogen (BUN) 21(H) 9 - 16 mg/dL [facility] Creatinine, Serum 1.25 0.5 - 1.4 mg/dL [facility] Estimated Glomerular Filt Rate 56 [facility] Comment:Chronic Kidney Disea se: Estimated GFR < 60 mL/min/1.17o2Phgsut Kidney Disease: Estimated GFR < 15 mL/min/1.73m2 Glucose 83 60 - 115 mg/dL [facility] Calcium 9.4 8.4 - 10.2 mg/dL [facility] Blood Venous blood specimen / Unknown 03/27/2024 11:00 AM EST 03/27/2024 2:18 PM EST us Sesar Pereyra MD LAB BLOOD ORDERABLES Final Result Performing Organization Address City/State/[facility] Co de Phone Number [facility] [address] [place] [phone] * Hepatitis C Ab (07/19/2023 11:42 AM EDT) Hepatitis C Antibody Nonreactive Nonreactive [facility] Comment:Antibodies to HCV no t detected; does not exclude early acuteHCV infection. Blood Venous blood specimen / Unknown 07/19/2023 11:42 AM EDT 07/19/2023 2:25 PM EDT Sesar Pereyra MD LAB BLOOD ORDERABLES Final Result [facility] [address] [place] [address] [phone] * (ABNORMAL) LIPID PANEL, STANDARD (03/05/2021 [...] ?? Ulisses MCDANIEL et al. MANDEEP. 2013;310(19): 6288-0205 ?? (http://education.[employer].INCHRON/faq/GJT859) Non-HDL Cholesterol 104 <130 mg/dL (calc) [facility] [...] Final Result [facility] [address] from Last 3 Months or Most Recently Relevant to Health Maintenance Insurance [employer] MEDICARE REPLACEMENT [facility] FULL Care Teams Pellet Preparation Operator Relationship Specialty Start Date End Date Sesar Pereyra MD [address] [place] [phone] PCP - General Internal Medicine 03/01/21 [facility] 03/22/24
--- OUTSIDE RECORDS SUMMARY | 2024-06-19 15:56 | XMS_ITS | Encounter Summary ---
Author Organization [employer] [facility] Address [address] [place] [address] Care Team Providers Care Media Services Coordinator Name Role Phone Annalee Jonse MD Primary Care Provider Un available Yolande Nicholas DO Primary Care Pro vider Unavailable Anuj Priest DO Primary Care Provider Judy vailable Jj, Pcp Primary Care Provider Unavailabl e Encounter Details Date Type Department Care Team Description 08/01/2018 Transfer Records Medical Records [address] [place] [id number] Abstract, Provider Social History Tobacco Use Types [...] on filedocumented in this encounter Care Teams Media Services Coordinator Relationship Specialty Start Date End Date Annalee Jones MD PCP - General Internal Medicine 01/06/17 9 Yolande Nicholas DO PCP - General Internal Medicine 12/03/18 10/08/20 Anuj Priest DO PCP - General Internal Medicine 10/09/20 2 Jj, Pcp PCP - General Internal Medicine 06/17/21 documented as of this encounter
--- OUTSIDE RECORDS SUMMARY | 2024-06-19 15:56 | XMS_ITS | Encounter Summary ---
Author Organization [facility] Address [address] [place] [address] Care Team Providers Care Public Policy Analyst Name Role Phone Yolande Nicholas DO Primary Care Pro vider Unavailable Anuj Priest DO Primary Care Provider [facility], Pcp Primary Care Provider [facility] Encounter Details Date Type Department Care Team Description 03/18/2020 Orders Only Adult Medicine [address] [address] Yolande Nicholas DO Social History Tobacco Use [...] on filedocumented in this encounter Care Teams Public Policy Analyst Relationship Specialty Start Date End Date Yolande Nicholas DO PCP - General Internal Medicine 12/03/18 10/08/20 Anuj Priest DO PCP - General Internal Medicine 10/09/20 2 2 [facility], Pcp PCP - General Internal Medicine 06/17/21 documented as of this encounter
--- OUTSIDE RECORDS SUMMARY | 2024-06-19 15:56 | XMS_ITS | Encounter Summary ---
Author Organization [facility] Address [address] [place] [address] Care Team Providers Care Mattress Packer Name Role Phone Yolande Nicholas DO Primary Care Pro vider Unavailable Anuj Priest DO Primary Care Provider [facility], Pcp Primary Care Provider Unavailabl e Reason for Visit * Reason Onset Date Comments Faxed Order 03/07/2020 Encounter Details Date Type Department Care Team Description 03/07/[address] [address] Yolande Nicholas DO Faxed Order Social History [...] TO BE SIGN AND FAX BACK TO [phone]. documented in this encounter Plan of Treatment Not on file documented as of this encounter Visit Diagnoses Not on filedocumented in this encounter Care Teams Mattress Packer Relationship Specialty Start Date End Date Yolande Nicholas DO PCP - General Internal Medicine 12/03/18 10/08/20 Anuj Priest DO PCP - General Internal Medicine 10/09/[address] [place] [address], Pcp PCP - General Internal Medicine 06/17/21 documented as of this encounter
--- OUTSIDE RECORDS SUMMARY | 2024-06-19 15:56 | XMS_ITS | Encounter Summary ---
Author Organization [employer] Address [address] [facility] 7[address] [place] [address] Care Team Providers Care Business Management Associate Name Role Phone Sesar Pereyra MD Primary Care Provider [phone] Encounter Details Date Type Department Care Team ([facility] st Contact Info) Description 11/01/2023 Orders Only [facility] [address] [place], [place] [phone] Sesar Pereyra MD [address] [place] [address] Social History Tobacco Use Types Packs/Day Years [...] Description 09/11/2024 10:30 AM EDT Office Visit [facility] [address] [place] [address] Sesar Pereyra MD [address] [place] [address] documented as of this encounter Visit Diagnoses Not on filedocumented in this encounter Additional Health Concerns Assessment Noted Time PHQ-9 Depression Total Score: 16 024 10:59 AM EDT documented as of this encounter Care Teams Business Management Associate Relationship Specialty Start Date End Date Sesar Pereyra MD [address] [place] [address] PCP - General Internal Medicine [facility] documented as of this encounter
--- OUTSIDE RECORDS SUMMARY | 2024-06-19 15:56 | XMS_ITS | Encounter Summary ---
Author Organization [facility] Address [address] [place] [address] Care Team Providers Care Alteration Inspector Name Role Phone Annalee Jones MD Primary Care Provider Un available Yolande Nicholas DO Primary Care Pro vider Unavailable Anuj Priest DO Primary Care Provider Judy vailable [facility], Pcp Primary Care Provider Unavailabl e Encounter Details Date Type Department Care Team Description 09/04/2018 Release of Information Medical Records [address] [place] [id number] Abstract, Provider Social History Tobacco Use Types [...] on filedocumented in this encounter Care Teams Alteration Inspector Relationship Specialty Start Date End Date Annalee Jones MD PCP - General Internal Medicine 01/06/17 9 Yolande Nicholas DO PCP - General Internal Medicine 12/03/18 10/08/20 Anuj Priest DO PCP - General Internal Medicine 10/09/20 2 Jj, Pcp PCP - General Internal Medicine 06/17/21 documented as of this encounter
--- OUTSIDE RECORDS SUMMARY | 2024-06-19 15:56 | XMS_ITS | Encounter Summary ---
Author Organization [facility] Address [address] [place] [address] Care Team Providers Care Media Consultant Name Role Phone Annalee Jones MD Primary Care Provider Un available Yolande Nicholas DO Primary Care Pro vider Unavailable Anuj Priest DO Primary Care Provider Judy [facility], Pcp Primary Care Provider Unavailabl e Reason for Visit * Reason Onset Date Comments TEST RESULTS 08/24/2018 Encounter Details Date Type Department Care Team Description 08/24/2018 Telephone Adult Medicine [facility] [address] [place] [address] Melva Salgado, [facility] [address] [place] [phone] TEST RESULTS Social History Tobacco Use Types [...] filedocumented in this encounter Care Teams Media Consultant Relationship Specialty Start Date End Date Annalee Jones MD PCP - General Internal Medicine 01/06/17 9 Yolande Nicholas DO PCP - General Internal Medicine 12/03/18 10/08/20 Anuj Priest DO PCP - General Internal Medicine 10/09/20 2 Jj Pcp PCP - General Internal Medicine 06/17/21 documented as of this encounter
--- OUTSIDE RECORDS SUMMARY | 2024-06-19 15:56 | XMS_ITS | Encounter Summary ---
Author Organization [employer] Address [address] [facility] [address] [place] [address] Care Team Providers Care Bandage Wrapping Machine Operator Name Role Phone Sesar Pereyra MD Primary Care Provider [phone] Reason for Visit * Reason Comments Med Refill Encounter Details Date Type Department Care Team ([facility] st Contact Info) Description 08/29/2023 Refill [facility] [address] [place] [address] Sesar Pereyra MD [address] [place] [address] Social History Tobacco Use Types [...] [facility] [address] [place] [address] Sesar Pereyra MD [address] [place] [address] documented as of this encounter Visit Diagnoses Not on filedocumented in this encounter Additional Health Concerns Assessment Noted Time PHQ-9 Depression Total Score: 16 024 10:59 AM EDT documented as of this encounter Care Teams Bandage Wrapping Machine Operator Relationship Specialty Start Date End Date Sesar Pereyra MD [address] [place] [address] PCP - General Internal Medicine [facility]01[facility] 03/22/24 documented as of this encounter
--- OUTSIDE RECORDS SUMMARY | 2024-06-19 15:56 | XMS_ITS | Clinical Summary ---
Author Organization [facility] Address [address] [place] [address] Care Team Providers Care Ignition Specialist Name Role Phone Nuha Galvin PA-C Primary Care Provider [phone] Source Comments PLEASE NOTE, if this patient [...] Date Sleep disorder 02/02/2015 Overview (02/02/2015): Saw [facility] and sleep on 01/15/2015: Dr. Johnson [...] a year. In remission Seen at [facility] urology Depression with anxiety 04/01/2014 Overview (04/01/2014): Dr. Pradhan at [facility]. Is going to establish care at a new facility. PVD (peripheral vascular dis ease) with claudication ([facility]) 04/01/2014 Overview (07/04/2014): Fem-Fem done by Dr. Hensley in 2006. Sees this doctor once a year at [facility]. Follows up with this facility every 6 months. 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 4.[address] Herbert [...] SAFETY NET MEDICARE - [place] Care Teams Ignition Specialist Relationship Specialty Start Date End Date Nuha Galvin PA-C [address] [place] [address] PCP - General 03/21/18
--- OUTSIDE RECORDS SUMMARY | 2024-06-19 15:56 | XMS_ITS | Encounter Summary ---
Author Organization [facility] Address [address] [place] [address] Care Team Providers Care Bench Machine Operator Name Role Phone Yolande Nicholas DO Primary Care Pro vider Unavailable Anuj Priest DO Primary Care Provider [facility], Pcp Primary Care Provider Unavailabl e Reason for Visit * Reason Onset Date Comments Faxed Order 06/17/2020 Encounter Details Date Type Department Care Team Description 06/17/2020 Telephone Adult [address] [address] Yolande Nicholas DO Faxed Order Social History [...] - 06/17/2020 8:44 AM EST Orders from [facility] to be signed and faxed back to [phone] . documented in this encounter Plan of Treatment Not on file documented as of this encounter Visit Diagnoses Not on filedocumented in this encounter Care Teams Bench Machine Operator Relationship Specialty Start Date End Date Yolande Nicholas DO PCP - General Internal Medicine 12/03/18 10/08/20 Anuj Priest DO PCP - General Internal Medicine 10/09/20 2 [facility], Pcp PCP - General Internal Medicine 06/17/21 documented as of this encounter
--- OUTSIDE RECORDS SUMMARY | 2024-06-19 15:56 | XMS_ITS | Encounter Summary ---
Author Organization [facility] Address [address] [place] [address] Care Team Providers Care Bulk Intake Worker Name Role Phone Annalee Jones MD Primary Care Provider Un available Yolande Nicholas DO Primary Care Pro vider Unavailable Anuj Priest DO Primary Care Provider Judy [facility], Pcp Primary Care Provider Unavailabl e Reason for Visit * Reason Onset Date Comments Prior Authorization 06/27/2018 sildenafil ( REVATIO) 20 MG tablet Encounter Details Date Type Department Care Team Description 06/27/2018 Telephone Adult [address] [address] Annalee Jones MD Prior Authorization (sildenafil (REVATIO) 20 MG tablet) Social History Tobacco Use Types Packs/Day Years Used Date Smoking Tobacco: Former Cigarettes 1 35 Q uit: 07/26/2005 Smokeless Tobacco: Never Alcohol Use Standard Drinks/Week Comments No 0 (1 standard drink = 0.6 oz pur e alcohol) prior heavy stopped 3. Sex Assigned at Date Recorded Not on file documented as of this encounter Miscellaneous Notes * Telephone Encounter - Opal Ballard M.A. - 07/06/2018 3:08 PM EST Urlogy note requested. * Telephone Encounter - Maggi Sol M.A. - 07/05/2018 2:12 PM EST Please have your ma obtain the urology consult, thank you [place] [phone] Prior Auth armand Sol [facility] Prior Authorizations Ext [phone] Fax: [phone] [place] back [place] p [phone] Prior Auth pool * Telephone Encounter - Valerie Hagen - 07/05/2018 2:02 PM EST Dora from [employer] [employer] calling the medication is not approved by the FDA for this pt's diagnosis please return call [phone] * Telephone Encounter - Annalee Jones MD - 07/05/2018 11:22 AM EST Please obtain urology consultation report * Telephone Encounter - Maggi Sol M.A. - 07/05/2018 11:09 AM EST Ed meds are not covered by medicare, per pharmacy pt has been using discount card [place] [phone] Prior Auth armand Sol [facility] Prior Authorizations Ext [phone] Fax: [phone] reply back to p [phone] Prior Auth pool * Telephone Encounter - Maggi Sol M.A. - 06/28/2018 4:24 PM EST Prior auth done via covermymeds sildenafil Dx erectile dysfunction Continuation of therapy, pt has been using a discount card * Telephone Encounter - Araceli Martinez - 06/27/2018 10:26 AM EST Pre Authorization for Medication-do not complete and send this encounter unless you have the fax from the pharmacy. Is this a Cover My Meds request: Yes -- Jain Code [id number] Name of Medication sildenafil (REVATIO) 20 MG tablet Dose of Medication 20 MG tablet What is the RX # from the faxed refill? N/A How does patient take this med? Take 5 Tabs by mouth as needed for Erectile Dysfunction. - Oral What Pharmacy did the fax come from: [facility] fax #: [phone] Third [employer] Party Information from fax: What Prescription Plan does the patient have? BIN/PCN if applicable: N/A Cardholder ID:[id number] Person Code: N/A Relationship Code: N/A Help desk phone: [phone] documented in this encounter Plan of Treatment Not on file documented as of this encounter Visit Diagnoses Not on filedocumented in this encounter Care Teams Bulk Intake Worker Relationship Specialty Start Date End Date Annalee Jones MD PCP - General Internal Medicine 01/06/17 9 Yolande Nicholas DO PCP - General Internal Medicine 12/03/18 10/08/20 Anuj Priest DO PCP - General Internal Medicine 10/09/20 2 [facility], Pcp PCP - General Internal Medicine 06/17/21 documented as of this encounter
--- OUTSIDE RECORDS SUMMARY | 2024-06-19 15:56 | XMS_ITS | Encounter Summary ---
Author Organization [employer] Address [address] [facility] 7t [place] [address] Care Team Providers Care Parimutuel Cashier Name Role Phone Sesar Pereyra MD Primary Care Provider [phone]- [phone] Reason for Visit * Reason Onset Date Comments Results 06/06/2023 Encounter Details Date Type Department Care Team ([facility] st Contact Info) Description 06/06/2023 Telephone [facility] MEDICINE [address] [place] [address] Sesar Pereyra MD [address] [place] [address] Results Social History Tobacco Use Types Packs/Day [...] Date when done: 06/01/23-06/02/23 pt unsure Facility[place] [facility] documented in this encounter Plan of Treatment Upcoming Encounters Date Type Department Care Team (Late st Contact Info) Description 09/11/2024 10:30 AM EDT Office Visit [facility] MED & PEDS [address] [place] [address] Sesar Pereyra MD [address] [place] [address] documented as of this encounter Visit Diagnoses Not on filedocumented in this encounter Care Teams Parimutuel Cashier Relationship Specialty Start Date End Date Sesar Pereyra MD [address] [place] [address] PCP - General Internal Medicine 03/01/21 [facility] 03/22/24 documented as of this encounter
--- OUTSIDE RECORDS SUMMARY | 2024-06-19 15:57 | XMS_ITS | Encounter Summary ---
Author Organization [employer] Address [address] [facility] 7 [place] [address] Care Team Providers Care Certified Driver Examiner Name Role Phone Sesar Pereyra MD Primary Care Provider [phone]- [phone] Reason for Visit * Reason Comments Med Refill Encounter Details Date Type Department Care Team ([facility] Contact Info) Description 06/10/2022 Refill [facility] MED & PEDS [address] [place] [address] Sesar Pereyra MD [address] [place] [address] Primary insomnia Social History Tobacco Use Types [...] Upcoming Encounters Date Type Department Care Team ([facility] Contact Info) Description 09/11/2024 10:30 AM EDT Office Visit [facility] MED & PEDS [address] [place] [address] Sesar Pereyra MD [address] [place] [address] documented as of this encounter Visit Diagnoses Diagnosis Primary insomnia Persistent disorder of initiating or maintaining sleep documented in this encounter Care Teams Certified Driver Examiner Relationship Specialty Start Date End Date Sesar Pereyra MD [address] [place] [address] PCP - General Internal Medicine 03/01/21 [facility] 03/22/24 documented as of this encounter
--- OUTSIDE RECORDS SUMMARY | 2024-06-19 15:57 | XMS_ITS | Encounter Summary ---
Author Organization [facility] Address [address] [place] [address] Care Team Providers Care Local Company Refrigerated Truck Driver Name Role Phone Yolande Nicholas DO Primary Care Pro vider Unavailable Anuj Priest DO Primary Care Provider [facility], Pcp Primary Care Provider Unavailabl e Reason for Visit * Reason Onset Date Comments Provider Call Back 04/29/2019 Encounter Details Date Type Department Care Team Description 04/29/2019 Telephone Adult [address] [address] Yolande Nicholas DO Provider Call Back Social [...] EST Im not aware of any in [place] * Telephone Encounter - Minerva Kan R.N. - 04/29/2019 3:[address] Yolande Gomez Are you aware of a detox in [facility] ? * Telephone Encounter - Lonny Lazarus - 04/29/2019 1:15 PM EST Patient relapsed for alcohol abuse 3 days ago and requests to speak to Dr. Yolande Gomez or her team. Patient states that he does want to get better. The patient says Dr. Alvarez mentioned a rehab facility in [place] last time, but he cannot remember the address, phone number, or name of the facility. documented in this encounter Plan of Treatment Not on file documented as of this encounter Visit Diagnoses Not on filedocumented in this encounter Care Teams Local Company Refrigerated Truck Driver Relationship Specialty Start Date End Date Yolande Nicholas DO PCP - General Internal Medicine 12/03/18 10/08/20 Anuj Priest DO PCP - General Internal Medicine 10/09/[address] [place] [address], Pcp PCP - General Internal Medicine 06/17/21 documented as of this encounter
--- OUTSIDE RECORDS SUMMARY | 2024-06-19 15:57 | XMS_ITS | Encounter Summary ---
Author Organization [employer] Address [address] [facility] [address] [place] [address] Care Team Providers Care Hot Top Liner Name Role Phone Sesar Pereyra MD Primary Care Provider [phone]- [phone] Reason for Visit * Reason Onset Date Comments Medication Question 05/23/2024 Encounter Details Date Type Department Care Team ([facility] st Contact Info) Description 05/23/2024 Telephone [facility] MEDICINE [address] [place] [address] Sesar Pereyra MD [address] [place] [address] Medication Question Social History Tobacco Use Types [...] any questions you can contact L&C at [phone]. documented in this encounter Plan of Treatment Upcoming Encounters Date Type Department Care Team ([facility] st Contact Info) Description 09/11/2024 10:30 AM EDT Office Visit [facility] MED & PEDS [address] [place] [address] Sesar Pereyra MD [address] [place] [address] documented as of this encounter Visit Diagnoses Diagnosis Primary hypertension Unspecified essential hypertension Hypercholesterolemia Pure hypercholesterolemia documented in this encounter Additional Health Concerns Assessment Noted Time PHQ-9 Depression Total Score: 16 024 10:59 AM EDT documented as of this encounter Care Teams Hot Top Liner Relationship Specialty Start Date End Date Sesar Pereyra MD [address] [place] [address] PCP - General Internal Medicine 03/01/21 [facility] 03/22/24 documented as of this encounter
--- OUTSIDE RECORDS SUMMARY | 2024-06-19 15:57 | XMS_ITS | Encounter Summary ---
Author Organization [facility] Address [address] [place] [address] Care Team Providers Care Cat Swamper Name Role Phone Ghassan Burciaga MD Primary Care Provider Unavail able Pierre Arevalo MD Primary Care Provider Judy vailable Gerson Dawson MD Primary Care Provider Unavail able [facility], Pcp Primary Care Provider Unavailabl e Coleman Mccarthy MD Primary Care Provider Unavaila Ayo Demarco MD Primary Care Provider [phone] Annalee Jones MD Primary Care Provider Un available Pascual Nicholasabela DO Primary Care Pro vider Unavailable Anuj Priest DO Primary Care Provider Judy vailable [facility], Pcp Primary Care Provider Unavailabl e Encounter Details Date Type Department Care Team Description 08/06/2010 Release of Information Medical Records [address] [place] [address] Abstract, Provider Social History Tobacco Use Types [...] on filedocumented in this encounter Care Teams Cat Swamper Relationship Specialty Start Date End Date Ghassan Burciaga MD PCP - General 07/24/00 05/06/13 Pierre Arevalo MD PCP - General Internal Medicine 05/07/13 4 Gerson Dawson MD PCP - General Internal Medicine 01/30/14 03/20/14 [facility], Pcp PCP - General Internal Medicine 03/21/14 05/06/14 Coleman Mccarthy MD PCP - General Internal Medicine 05/07/14 07/18/16 Ayo Caripo MD [address] [place] [address] PCP - General Internal Medicine 07/19/16 01/05/17 Annalee Jones MD [address] [place] [address] PCP - General Internal Medicine 01/06/17 12/02/18 Yolande Nicholas, [address] [place] [address] PCP - General Internal Medicine 12/03/18 10/08/20 Anuj Priest DO [address] [place] [address] PCP - General Internal Medicine 10/09/20 06/16/21 [facility], Pcp PCP - General Internal Medicine 06/17/21 documented as of this encounter
--- OUTSIDE RECORDS SUMMARY | 2024-06-19 15:57 | XMS_ITS | Encounter Summary ---
Author Organization [facility] Address [address] [place] [address] Care Team Providers Care Flight Steward Name Role Phone Yolande Nicholas DO Primary Care Pro vider Unavailable Anuj Priest DO Primary Care Provider Judy álvarez [facility], Pcp Primary Care Provider Unavailabl e Encounter Details Date Type Department Care Team Description 03/06/2019 Planting Material Unloader Report Medical Records [address] [place] [address] Adilia Navarro PA-C Social History Tobacco Use [...] on filedocumented in this encounter Care Teams Flight Steward Relationship Specialty Start Date End Date Yolande Nicholas DO PCP - General Internal Medicine 12/03/18 10/08/20 Anuj Priest DO PCP - General Internal Medicine 10/09/20 [facility], Pcp PCP - General Internal Medicine 06/17/21 documented as of this encounter
--- OUTSIDE RECORDS SUMMARY | 2024-06-19 15:57 | XMS_ITS | Encounter Summary ---
Author Organization [employer] Address [address] [facility] 7t [place] [address] Care Team Providers Care Frog Catcher Name Role Phone Sesar Pereyra MD Primary Care Provider [phone]- [phone] Reason for Visit * Reason Onset Date Comments Lab Orders 05/04/2022 Encounter Details Date Type Department Care Team ([facility] st Contact Info) Description 05/04/2022 Telephone [facility] MEDICINE [address] [place] [address] Sesar Pereyra MD [address] [place] [address] Lab Orders Social History Tobacco Use Types [...] pt requesting status n lab referral to [facility] Please contact pt at [phone] * Telephone Encounter - Jacquelyn Abel - 05/04/2022 8:11 AM EST Tc from pt requesting a status update on lab orders. Please contact at [phone] documented in this encounter Plan of Treatment Upcoming Encounters Date Type Department Care Team (Late st Contact Info) Description 09/11/2024 10:30 AM EDT Office Visit [facility] MED & PEDS [address] [place] [address] Sesar Pereyra MD [address] [place] [address] Scheduled Orders Name Type Priority Associated Diagnoses Orde r Schedule Basic Metabolic Panel Lab Routine Essential hypertension Expected: 05/05/2022 (Approximate), Expires: 05/05/2023 documented as of this encounter Visit Diagnoses Diagnosis Essential hypertension- Primary Unspecified essential hypertension documented in this encounter Care Teams Frog Catcher Relationship Specialty Start Date End Date Sesar Pereyra MD [address] [place] [address] PCP - General Internal Medicine 03/01/21 [facility] 03/22/24 documented as of this encounter
--- OUTSIDE RECORDS SUMMARY | 2024-06-19 15:57 | XMS_ITS | Encounter Summary ---
Author Organization [facility] Address [address] [place] [address] Care Team Providers Care Photo Tech Name Role Phone Yolande Nicholas DO Primary Care Pro vider Unavailable Anuj Priest DO Primary Care Provider [facility], Pcp [facility] Encounter Details Date Type Department Care Team Description 05/20/2019 Release of Information Medical Records [address] [place] [address] Abstract, Provider Social History Tobacco Use Types [...] EST AUTHORIZATION TO OBTAIN RECORDS MAILED TO [facility]. documented in this encounter Plan of Treatment Not on file documented as of this encounter Visit Diagnoses Not on filedocumented in this encounter Care Teams Photo Tech Relationship Specialty Start Date End Date Yolande Nicholas DO PCP - General Internal Medicine 12/03/18 10/08/20 Anuj Priest DO PCP - General Internal Medicine 10/09/20 2 2 [facility], Pcp PCP - General Internal Medicine 06/17/21 documented as of this encounter
--- OUTSIDE RECORDS SUMMARY | 2024-06-19 15:57 | XMS_ITS | Encounter Summary ---
Author Organization [employer] Address [address] [facility] 7t [place] [address] Care Team Providers Care Wastewater Technician Name Role Phone Sesar Pereyra MD Primary Care Provider [phone]- [phone] Reason for Visit * Reason Onset Date Comments Med Refill 04/18/2024 Encounter Details Date Type Department Care Team ([facility] st Contact Info) Description 04/18/2024 Telephone [facility] MEDICINE [address] [place] [address] Sesar Pereyra MD [address] [place] [address] Med Refill Social History Tobacco Use Types [...] needing refill : To be sent to: [facility] - [place], [place] - [address] [place] [address] STE[place] documented in this encounter Plan of Treatment Upcoming Encounters Date Type Department Care Team (Late st Contact Info) Description 09/11/2024 10:30 AM EDT Office Visit [facility] CH[facility] MED & PEDS [address] [place] [address] Sesar Pereyra MD [address] [place] [address] documented as of this encounter Visit Diagnoses Not on filedocumented in this encounter Additional Health Concerns Assessment Noted Time PHQ-9 Depression Total Score: 16 024 10:59 AM EDT documented as of this encounter Care Teams Wastewater Technician Relationship Specialty Start Date End Date Sesar Pereyra MD [address] [place] [address] PCP - General Internal Medicine 03/01/21 [facility] 03/22/24 documented as of this encounter
--- OUTSIDE RECORDS SUMMARY | 2024-06-19 15:57 | XMS_ITS | Encounter Summary ---
Author Organization [facility] Address [address] [place] [address] Care Team Providers Care Military Cook Name Role Phone Yolande Nicholas DO Primary Care Pro vider Unavailable Anuj Priest DO Primary Care Provider [facility], Pcp Primary Care Provider Unavailabl e Reason for Visit * Reason Onset Date Comments Membership Sales Representative Feedback 02/18/[address] Encounter Details Date Type Department Care Team Description 02/18/2019 Telephone Adult [address] [address] Yolande Nicholas DO Membership Sales Representative Feedback (Low Dose CT) Social History Tobacco [...] on filedocumented in this encounter Care Teams Military Cook Relationship Specialty Start Date End Date Yolande Nicholas DO PCP - General Internal Medicine 12/03/18 10/08/20 Anuj Priest DO PCP - General Internal Medicine 10/09/20 2 [facility], Pcp PCP - General Internal Medicine 06/17/21 documented as of this encounter
--- OUTSIDE RECORDS SUMMARY | 2024-06-19 15:57 | XMS_ITS | Encounter Summary ---
Author Organization [employer] [facility] Address [address] [place] [address] Care Team Providers Care Field Artillery Basic Name Role Phone Yolande Nicholas DO Primary Care Pro vider Unavailable Anuj Priest DO Primary Care Provider Judy Gardner, Pcp Primary Care Provider Unavailabl e Encounter Details Date Type Department Care Team Description 03/14/2019 Release of Information Medical Records [address] [place] [id number] Abstract, Provider Social History Tobacco Use Types [...] on filedocumented in this encounter Care Teams Field Artillery Basic Relationship Specialty Start Date End Date Yolande Nicholas DO PCP - General Internal Medicine 12/03/18 10/08/20 Anuj Priest DO PCP - General Internal Medicine 10/09/20 2 [facility], Pcp PCP - General Internal Medicine 06/17/21 documented as of this encounter
== END 2024-06-19 15:53 | disposition home or self-care (01) ==
LOC: HO.HMGCX 15:52
PROVIDERS: PCP Internal Medicine; Visit Provider Physician Assistant
DX: Z13.89 Encounter for screening for other disorder (principal)
CPT/HCPCS: 73030; 99212

== ENCOUNTER → 2024-06-19 16:00 | Outpatient (BNV) | payer MEDICARE, MEDICAID, SELFPAY | PROVIDERS: PCP Internal Medicine; Visit Provider Radiology Diagnostic Radiology | DX: S42.142A Displaced fracture of glenoid cavity of scapula, left shoulder, initial encounter for closed fracture (principal); S42.302A Unspecified fracture of shaft of humerus, left arm, initial encounter for closed fracture; S09.90XA Unspecified injury of head, initial encounter; M25.522 Pain in left elbow | CPT/HCPCS: 70450; 73030; 73080; 73200 ==

== ENCOUNTER 2024-06-19 17:04 | Inpatient (IN) | payer MEDICARE, OTHER, SELFPAY ==
--- NOTE | ~2024-06-19 | CT_ITS ---
CLINICAL HISTORY: trauma CT head without contrast Comparison: Head CT from 03/18/2024 Findings: No acute intracranial hemorrhage. No midline shift or hydrocephalus. No significant change in mild generalized volume loss. Bilateral basal ganglia calcifications and vascular calcifications are redemonstrated. Mild white matter lesions are likely related to small-vessel ischemic disease. No significant change in thin bilateral subdural hygromas. Soft tissue swelling , including scalp of the right lateral convexity. No acute skull fracture. Imaged paranasal sinuses and imaged mastoid air cells are well aerated. IMPRESSION: No acute intracranial findings by CT. This document has been electronically signed by: Franko Rutherford MD on 06/19/2024 19:12:47
--- NOTE | ~2024-06-19 | XR_ITS ---
CLINICAL HISTORY: fall, pain 3 view left elbow Comparison: None Findings: Linear calcification is likely due to calcific tendinitis of the triceps at dorsal olecranon. Small avulsion fragment is considered less likely. Otherwise, no displaced fracture. No dislocation. Mild-moderate osteoarthritis of the imaged elbow. Suboptimal lateral positioning without definite large effusion. Calcification medial to proximal ulna is likely due to phlebolith on the oblique image. IMPRESSION: 1. Likely calcific tendinitis of the triceps insertion on the olecranon. 2. Mild-moderate degenerative changes. This document has been electronically signed by: Franko Rutherford MD on 06/19/2024 19:16:55
--- NOTE | ~2024-06-19 | CT_ITS ---
CLINICAL HISTORY: r o dislocation per ortho Exam: CT of the left humerus without contrast Comparison: None available Findings: Anterior dislocation of head of the left humerus with impaction and indentation on the acutely fractured anterior glenoid. Hill-Sachs fracture includes head of the humerus. Comminuted fractures of the scapula also include left corocoid process. With a additional nondisplaced fractures of the lateral scapula. Near anatomic alignment of the acute nondisplaced fracture of the left greater tuberosity. Major fracture fragment of the glenoid is anterior inferiorly displaced measuring 2.4 cm. Additional small loose bodies and fragments noted of the dorsal margin of the glenoid. [id number]-[id number] effusion with lipohemarthrosis of the left glenohumeral joint. 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 Please refer to separate report for x-rays of the partially included elbow. Mild imaged rib deformities in the [id number] appear old/chronic. Impression: 1. Anterior dislocation of the left glenohumeral joint with impaction fracture of the humerus and fracture of the glenoid. 2. Additional fractures of the left scapula include corocoid process. This document has been electronically signed by: Franko Rutherford MD on 06/19/2024 20:00:25
--- NOTE | ~2024-06-19 | FL_ITS ---
EXAMINATION: FL GUIDANCE ONLY HISTORY: fracture Left proximal humerus COMPARISON: Comparison is made with the prior examination of the left shoulder dated 06/19/2024. TECHNIQUE: Fluoroscopy time: 0.1 minutes. Cumulative Dose: 1.87 mGy. DAP: 0.0264 mGym2 Images: 3. FINDINGS: Images demonstrate interval relocation of the previously seen anterior dislocation of the humeral head. The previously described glenoid fracture is partially visualized. FL/FL guidance in OR IMPRESSION: Fluoroscopy during procedure. Please see procedure report for additional information. Electronically signed by: Anuj Hendrickson MD 06/24/2024 08:10 AM [facility]
[2024-06-19 17:32] VITALS: PULSE 68; RESP 18; TEMP 36.6; O2SAT 96; BMI 31.7
--- NOTE | 2024-06-19 17:45 | ED_ITS ---
HPI - Extremity Problem General Chief complaint: Extremity Injury, Upper Stated complaint: L shoulder injury Time Seen by Provider: 06/19/24 17:46 Source: patient and family Mode of arrival: ambulatory Limitations: no limitations History of Present Illness ED Provider: Dr. Angela Moura HPI Narrative: Patient comes to the emergency room complaining of left shoulder pain. Earlier today, patient fell on the parking lot, slipped on ice. Patient is on Eliquis for atrial fibrillation. Patient denies hitting his head or losing consciousness. At [facility] x-rays were done, patient does have a fracture and possible dislocation. Patient was sent to the emergency room for further evaluation. Patient denies any numbness or tingling of the left upper extremity. Related Data Home Medications ?Medication ?Instructions ?Recorded ?Confirmed docusate sodium 100 mg capsule 100 mg PO DAILY 08/17/21 05/27/24 apixaban 5 mg tablet (Eliquis) 5 mg PO BID 01/27/22 05/27/24 atorvastatin 80 mg tablet 80 mg PO DAILY 01/27/22 05/27/24 sertraline 50 mg tablet 50 mg PO DAILY 07/06/22 05/27/24 quetiapine 25 mg tablet 25 mg PO BID 12/28/22 05/27/24 tamsulosin 0.4 mg capsule 0.4 mg PO DAILY 03/07/23 05/27/24 cilostazol 50 mg tablet 50 mg PO BID 03/27/23 05/27/24 clonazepam 0.5 mg tablet 0.5 mg PO BID Anxiety 11/15/23 05/27/24 dextroamphetamine-amphetamine 7.5 1 tab PO DAILY 03/18/24 05/27/24 mg tablet melatonin 3 mg capsule 3 mg PO BEDTIME PRN 04/12/24 05/27/24 Previous Rx's ?Medication ?Instructions ?Recorded dronedarone 400 mg tablet (Multaq) 400 mg PO BID #180 tabs 03/21/24 metoprolol tartrate 25 mg tablet 25 mg PO BID #180 tabs 03/21/24 furosemide 40 mg tablet 40 mg PO DAILY #90 tabs 04/16/24 hydralazine 25 mg tablet 25 mg PO BID 30 days #60 tabs 04/19/24 gabapentin 100 mg capsule 100 - 300 mg (1 - 3 x 100 mg) PO 05/06/24 BEDTIME Pain (Scale Score 1-3) 30 days #90 caps cyclobenzaprine 10 mg tablet 10 mg PO BEDTIME PRN muscle spasm 05/31/24 #10 tabs Allergies Allergy/AdvReac Type Severity Reaction Status Date / Time No Known Allergies Allergy Verified 06/19/24 17:33 [No Known Allergies*] Review of Systems 2 Review of Systems: Constitutional : No Weight loss, No Fever, No Chills, No Night Sweats, No Fatigue, No Malaise ENT/Mouth : No Hearing loss, No Ear Pain, No Nasal Congestion, No Sinus Pain, No Hoarseness, No sore throat, No Rhinorrhea, No Swallowing Difficulty Eyes: No Eye Pain, No Swelling, No Redness, No Foreign Body, No Discharge, No Vision Changes Cardiovascular : No Chest Pain, No SOB, No Dyspnea on Exertion, No Orthopnea, No Edema, No Palpitations Respiratory : No Cough, No Sputum, No Wheezing, No Smoke Exposure, No Dyspnea Gastrointestinal : No Nausea, No Vomiting, No Diarrhea, No Constipation, No abdominal Pain, No Hematochezia, No Melena Genitourinary : no irregular bleeding, No Dysuria, No Urinary Frequency, No Hematuria, No Urinary Incontinence, No Urgency, No Flank Pain, No Urinary Flow Changes, No Hesitancy Musculoskeletal : Complaining of left shoulder pain and elbow pain No Myalgias, No Joint Swelling Skin : No Skin Lesions, No rash Neuro : No Weakness, No Numbness, No Paresthesias, No Loss of Consciousness, No Dizziness, No Headache Psych : No Anxiety/Panic, No Depression, No SI/HI/AH/VH, No Social Issues, Heme/Lymph: No Bruising, No Bleeding,No Lymphadenopathy Endocrine : No Polyuria, No Polydipsia, No Temperature Intolerance [facility] Past Medical History Medical History Coronary artery disease Hypersomnia Snoring Neuropathy Atherosclerotic cardiovascular disease History of alcohol abuse History of COVID-19 On beta jose at home COPD (chronic obstructive pulmonary disease) On anticoagulant therapy History of atrial fibrillation PVD (peripheral vascular disease) Renal cell carcinoma Hypertension Depression Anxiety Diverticulitis Surgical History H/O cardiac catheterization History of colectomy S/P femoral-femoral bypass surgery Social History Social History Household Members: Significant Other Housing: House Do you presently have visiting nurse or other home services: No Alcohol intake: never Patient Tobacco Use Status: Former Tobacco user Tobacco use type: Cigarette Smoked in Last 30 Days: No Use of substances other than those prescribed or required for medical reasons: No Substance Use Type: Marijuana Advance Directives: Yes Advance Directives on File: Yes Advance Directives Date on File: 06/09/21 service: Yes Current occupational status: retired Current occupation: right hand dominant Physical Exam 2 Vital Signs: Vital Signs: Last Vital Signs Temp 98.4 F 06/19/24 22:04 Pulse 79 06/19/24 22:04 Resp 16 06/19/24 22:04 BP 171/78 H 06/19/24 22:04 Pulse Ox 95 06/19/24 22:04 O2 Del Method Room Air 06/19/24 22:04 BMI result Body Mass Index 31.7 Const: Other: Appearance: Alert. Oriented X3. No acute distress. Eyes: Pupils equal, round and reactive to light. ENT: Pharynx normal. Neck: Normal inspection. Neck supple. No lymph nodes noted. No crepitus CVS: Normal heart rate and rhythm. Pulses normal. Normal S1 and S2 Respiratory: No respiratory distress. Breath sounds normal. No Wheezing. No rales Abdomen: Soft and nontender. No rigidity. No distention. Skin: Skin warm and dry. Normal skin color. Normal skin turgor. Extremities: Patient's LEs arm is on a sling. Patient able to abduct the arm due to pain. There is no significant pain to palpation over the olecranon. Neuro: Oriented X 3. No motor deficit. No sensory deficit. Moving all extremities. No slurred speech. CN 2 through 12 grossly intact Psych: calm, cooperative, normal affect Course Course Course Narrative: RME, this is a rapid medical exam performed by Je Delgado please refer to primary provider for complete H&P- 79-year-old male presents for evaluation of a left shoulder injury. He slipped and fell on ice around 1:00 p.m. this afternoon. Denies head strike but he is on Eliquis due to AFib. He had an x- ray in the outpatient setting which shows a shoulder dislocation with anterior inferior glenohumeral fracture and a Hill-Sachs impaction deformity. IMPRESSION: 1. Anteroinferior glenohumeral joint dislocation. 2. Comminuted fracture of the superior and inferior glenoid. 3. Probable Hill-Sachs impaction injury. Medications Administered Discontinued Medications Generic Name Dose Route Start Last Admin Trade Name Freq PRN Reason Stop Dose Admin Oxycodone HCl 5 mg 06/19/24 19:03 06/19/24 19:12 Oxycodone Hcl Immed Release 5 Mg Tablet PO 06/19/24 19:04 5 mg ONCE ONE Administration Oxycodone HCl 5 mg 06/19/24 21:01 06/19/24 21:19 Oxycodone Hcl Immed Release 5 Mg Tablet PO 06/19/24 21:02 5 mg ONCE ONE Administration Medical Decision Making Medical Decision Making [facility] Narrative: Discussed the x-ray findings with orthopedics on-call, Dr. Harrison and COURT Falcon. It is unclear on the x-rays of the humerus is actually displaced. We will go ahead and order the CT scan. X-ray of the elbow: Calcific tendinitis, mild moderate degenerative changes, no fracture. CT scan of the humerus: Hill-Sachs fracture includes head of the humerus. Comminuted fractures of the scapula also include left coracoid process. With additional nondisplaced fractures of the lateral scapula CT scan results discussed with orthopedics COURT Falcon, who discussed the case with Dr. Harrison and Dr. Kothari Recommendations, not to attempt reduction, patient to be admitted for surgery which will take place in the next 2-4 days, natalia Porter My interpretation of labs: Patient's white blood cell count 11.9, likely reactive leukocytosis, chemistry no acute abnormalities I discussed the patient with Dr. Li, patient being admitted Differential Diagnosis Differential Diagnoses: The differential diagnosis associated with the presentation includes (Shoulder dislocation, humeral fracture, clavicle fracture, scapular fracture, contusion, concussion) Admission/Observation Consideration of admission/observation: Escalation of care including admission/observation considered Consult Healthcare Provider Management of the patient was discussed with: Hospitalist and Market Development Analyst Lab Data MDM Lab Attestation statement: I reviewed the patient's lab results. 06/19/24 19:57 06/19/24 18:17 Labs: Lab Results 06/19/24 06/19/24 Range/Units 18:17 19:57 WBC 11.9 H (4.8-10.8) X10*3/uL RBC 4.64 D (4.60-5.80) X10*6/uL Hgb 14.3 D (14.0-18.0) g/dl Hct 42.9 D (42.0-52.0) % MCV 92.5 (80.0-98.0) fL MCH 30.8 (27.0-33.0) pg MCHC 33.3 (31.0-36.0) g/dl RDW 14.4 (11.0-16.0) % Plt Count 238 (160-400) X10*3/uL MPV 9.9 (9.4-12.4) fL Immature Gran % (Auto) 0.3 (0.0-0.4) % Neut % (Auto) 83.9 H (45-73) % Lymph % (Auto) 7.1 L (20-40) % [place] % (Auto) 8.1 (2-11) % Eos % (Auto) 0.2 (0-4) % Baso % (Auto) 0.4 (0-2) % Lymph # (Auto) 0.9 L (1.2-4.9) X10*3/uL [place] # (Auto) 1.0 (0.1-1.2) X10*3/uL Eos # (Auto) 0.0 (0.0-0.4) X10*3/uL Baso # (Auto) 0.1 (0.0-0.2) X10*3/uL Abs Immat Gran (auto) 0.04 H (0.00-0.03) X10*3/uL Absolute Neuts (auto) 10.0 H (2.0-8.3) x10*3/uL Absolute Nucleated RBC 0.000 (0.0-0.012) X10*3/uL Nucleated RBC % (auto) 0.0 (0.0-0.2) /100WBC PT 16.0 H (10.9-12.4) SEC INR 1.4 H (0.9-1.1) Sodium 142 (135-145) mmol/L Potassium 3.8 (3.3-5.1) mmol/L Chloride 109 H (96-108) mmol/L Carbon Dioxide 23 (22-29) mmol/L Anion Gap 14 (12-20) BUN 13 (9-16) mg/dL Creatinine 1.11 (0.5-1.4) mg/dL Estim Creat Clear Calc 72.1 Estimated GFR > 60 Random Glucose 92 (60-115) mg/dL Calcium 9.1 (8.4-10.2) mg/dL Total Bilirubin 0.5 (0.0-1.0) mg/dL AST 27 (5-37) U/L ALT 14 (0-40) U/L Alkaline Phosphatase 119 H (39-117) U/L Total Protein 7.7 (6.5-8.0) g/dL Albumin 4.1 (3.5-5.0) g/dL Lipase 17 (8-78) U/L Independent Interpretation I performed an independent interpretation of an: Plain X-Ray and CT Scan Radiology Impression Discussion of test interpretation with radiology: I have reviewed the radiologist's reading. Radiologist Impression: Findings: Anterior dislocation of head of the left humerus with impaction and indentation on the acutely fractured anterior glenoid. Hill-Sachs fracture includes head of the humerus. Comminuted fractures of the scapula also include left corocoid process. With a additional nondisplaced fractures of the lateral scapula. Near anatomic alignment of the acute nondisplaced fracture of the left greater tuberosity. Major fracture fragment of the glenoid is anterior inferiorly displaced measuring 2.4 cm. Additional small loose bodies and fragments noted of the dorsal margin of the glenoid. [id number] effusion with lipohemarthrosis of the left glenohumeral joint. 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 Please refer to separate report for x-rays of the partially included elbow. Mild imaged rib deformities in the [id number] appear old/chronic. Impression: 1. Anterior dislocation of the left glenohumeral joint with impaction fracture of the humerus and fracture of the glenoid. 2. Additional fractures of the left scapula include corocoid process. No acute intracranial hemorrhage. No midline shift or hydrocephalus. No significant change in mild generalized volume loss. Bilateral basal ganglia calcifications and vascular calcifications are redemonstrated. Mild white matter lesions are likely related to small-vessel ischemic disease. No significant change in thin bilateral subdural hygromas. Soft tissue swelling , including scalp of the right lateral convexity. No acute skull fracture. Imaged paranasal sinuses and imaged mastoid air cells are well aerated. Independent Historian Clinical information obtained from an independent historian. History obtained from or confirmed by: Other (Friend) Critical Care Time Critical Care Time Critical Care Time: Yes Total Critical Care Time: 60 Attestation: I have personally provided critical care time. Time includes review of lab data, radiology results, discussion with consultants, and monitoring for potential decompensation. Intervention performed as documented. Discharge Plan Discharge Clinical Impression: Anterior dislocation of humerus, Fracture, humerus, Closed left scapular fracture Patient Disposition: Admitted As Inpatient
--- NOTE | 2024-06-19 18:01 | PC.NURSE ---
Away for imaging. Plan to obtain labs upon return.
--- OUTSIDE RECORDS SUMMARY | 2024-06-19 18:26 | XMS_ITS | Encounter Summary ---
Author Organization [facility] Address [address] [place] [address] Care Team Providers Care Sash Repairer Name Role Phone Yolande Nicholas DO Primary Care Pro vider Unavailable Anuj Priest DO Primary Care Provider Judy Gardner, Pcp Primary Care Provider Unavailabl e Encounter Details Date Type Department Care Team Description 10/07/2019 Pt. Non Urgent Medic al Question Adult Medicine [address] [address] Yolande Nicholas DO Social History Tobacco Use [...] on filedocumented in this encounter Care Teams Sash Repairer Relationship Specialty Start Date End Date Yolande Nicholas DO PCP - General Internal Medicine 12/03/18 10/08/20 Anuj Priest DO PCP - General Internal Medicine 10/09/20 Molly Gardner, Pcp PCP - General Internal Medicine 06/17/21 documented as of this encounter
--- OUTSIDE RECORDS SUMMARY | 2024-06-19 18:26 | XMS_ITS | Encounter Summary ---
Author Organization [facility] Address [address] [place] [address] Care Team Providers Care Doctor Of Nursing Practice Name Role Phone Yolande Nicholas DO Primary Care Pro vider Unavailable Anuj Priest DO Primary Care Provider [facility], Pcp Primary Care Provider Unavailabl e Reason for Visit * Reason Onset Date Comments anxiety 09/17/2019 Encounter Details Date Type Department Care Team Description 09/17/2019 Pt. Non Urgent Medic al Question Adult Medicine [address] [address] Yolande Nicholas DO Social History Tobacco Use [...] now after getting out of [facility] for the covid 19 my girl friend it seems like i am a different person. You have now idea what i went through there in the hospit al and coming home in this of anxiety. I need help like i said the visiting nurse sugested i take ativan for my anxiety. My therpist Ava from [facility] said i should be taking [...] in this encounter Care Teams Doctor Of Nursing Practice Relationship Specialty Start Date End Date Yolande Nicholas DO PCP - General Internal Medicine 12/03/18 10/08/20 Anuj Priest DO PCP - General Internal Medicine 10/09/[address] [place] [address], Pcp PCP - General Internal Medicine 06/17/21 documented as of this encounter
--- OUTSIDE RECORDS SUMMARY | 2024-06-19 18:26 | XMS_ITS | Encounter Summary ---
Author Organization [facility] Address [address] [place] [address] Care Team Providers Care Fourdrinier Machine Operator Name Role Phone Ghassan Burciaga MD Primary Care Provider Unavail able Pierre Arevalo MD Primary Care Provider Judy vailable [place] Dawson MD Primary Care Provider Unavail able [facility], Pcp Primary Care Provider Unavailabl e Coleman Mccarthy MD Primary Care Provider Unavaila Ayo Demarco MD Primary Care Provider [phone] Annalee Jones MD Primary Care Provider Un available Kim Banegas Yolande DO Primary Care Pro vider Unavailable Anuj Pirest DO Primary Care Provider Judy vailable [facility], Pcp Primary Care Provider Unavailabl e Encounter Details Date Type Department Care Team Description 06/25/2011 Pt. Non Urgent Medic al Question Medicine/Pediatrics - [address] [id number] Ghassan Burciaga MD Social History Tobacco Use [...] on filedocumented in this encounter Care Teams Fourdrinier Machine Operator Relationship Specialty Start Date End Date Ghassan Burciaga MD PCP - General 07/24/00 05/06/13 Pierre Arevalo MD PCP - General Internal Medicine 05/07/13 4 [place] Dawson MD PCP - General Internal Medicine 01/30/14 03/20/14 [facility], Pcp PCP - General Internal Medicine 03/21/14 05/06/14 Coleman Mccarthy MD PCP - General Internal Medicine 05/07/14 07/18/16 Ayo Carpio MD [address] [place] [address] PCP - General Internal Medicine 07/19/16 01/05/17 Annalee Jones MD [address] [place] [address] PCP - General Internal Medicine 01/06/17 12/02/18 Yolande Nicholas, [address] [address] PCP - General Internal Medicine 12/03/18 10/08/20 Anuj Priest, [address] [address] PCP - General Internal Medicine 10/09/20 06/16/21 [facility], Pcp PCP - General Internal Medicine 06/17/21 documented as of this encounter
--- OUTSIDE RECORDS SUMMARY | 2024-06-19 18:26 | XMS_ITS | Encounter Summary ---
Author Organization [facility] Address [address] [place] [address] Care Team Providers Care Pourer Crane Ladle Name Role Phone Yolande Nicholas DO Primary Care Pro vider Unavailable Anuj Priest DO Primary Care Provider [facility], Pcp Primary Care Provider Unavailabl e Reason for Visit * Reason Onset Date Comments Abdominal Pain 10/08/2019 Hernia 10/08/2019 Encounter Details Date Type Department Care Team Description 10/08/2019 Telephone Adult Medicine [address] [address] Yolande Nicholas DO Abdominal Pain; Hernia Social [...] back and can be reached back at [phone] * Telephone Encounter - Minerva Kan R.N. - 10/08/2019 3:06 PM EDT Ame is not with him. Call pt on his cell phone , left a message * Telephone Encounter - Lavonne Bernabe - 10/08/2019 3:04 PM EDT Ame calling back and would like CB at [phone] * Telephone Encounter - Sharmaine Bose - [...] abroad? NO ??? Have you been to [place] or in contact with anyone who has recently been in [place]? NO If pain or injury related was it due to an accident at work or from a motor vehicle accident? NO If yes, gather 3[employer] republic[employer] insurance information Date of accident/Injury: How long has patient had these symptoms?: PCP: Yolande Gomez Payor: GIO - MEDICARE / Plan: MEDICARE FFS $5 KARI MESA [id number] / Product Type: MEDICARE [id number] documented in this encounter Plan of Treatment Not on file documented as of this encounter Visit Diagnoses Not on filedocumented in this encounter Care Teams Pourer Crane Ladle Relationship Specialty Start Date End Date Yolande Nicholas DO PCP - General Internal Medicine 12/03/18 10/08/20 Anuj Priest DO PCP - General Internal Medicine 10/09/20 2 Jj, Pcp PCP - General Internal Medicine 06/17/21 documented as of this encounter
--- OUTSIDE RECORDS SUMMARY | 2024-06-19 18:26 | XMS_ITS | Encounter Summary ---
Author Organization [facility] Address [address] [place] [address] Care Team Providers Care Behavioral Health Care Coordinator Name Role Phone Yolande Nicholas DO Primary Care Pro vider Unavailable Anuj Priest DO Primary Care Provider [facility], Pcp Primary Care Provider Unavailabl e Reason for Visit * Reason Onset Date Comments anxiety 09/16/2019 Encounter Details Date Type Department Care Team Description 09/16/2019 Pt. Non Urgent Medic al Question Adult Medicine [address] [address] Yolande Nicholas DO Social History Tobacco Use [...] the med report [facility] . I need to know which meds i should take? Alex Nettles documented in this encounter Plan of Treatment Not on file documented as of this encounter Visit Diagnoses Not on filedocumented in this encounter Care Teams Behavioral Health Care Coordinator Relationship Specialty Start Date End Date Yolande Nicholas DO PCP - General Internal Medicine 12/03/18 10/08/20 Anuj Priest DO PCP - General Internal Medicine 10/09/20 2 [facility], Pcp PCP - General Internal Medicine 06/17/21 documented as of this encounter
--- OUTSIDE RECORDS SUMMARY | 2024-06-19 18:26 | XMS_ITS | Encounter Summary ---
Author Organization [facility] Address [address] [place] [address] Care Team Providers Care Battery Loader Name Role Phone Yolande Nicholas DO Primary Care Pro vider Unavailable Anuj Priest DO Primary Care Provider [facility], Pcp [facility] Encounter Details Date Type Department Care Team Description 09/24/2019 Pt. Non Urgent Medic al Question Adult Medicine [address] [address] Yolande Nicholas DO Social History Tobacco Use [...] sore. I went to the ER in [place] to have my leg looked at and [...] been this way since i came from [facility] 2wks or more. Need help documented in this encounter Plan of Treatment Not on file documented as of this encounter Visit Diagnoses Not on filedocumented in this encounter Care Teams Battery Loader Relationship Specialty Start Date End Date Yolande Nicholas DO PCP - General Internal Medicine 12/03/18 10/08/20 Anuj Priest DO PCP - General Internal Medicine 10/09/[address] [place] [address], Pcp PCP - General Internal Medicine 06/17/21 documented as of this encounter
--- OUTSIDE RECORDS SUMMARY | 2024-06-19 18:26 | XMS_ITS | Encounter Summary ---
Author Organization [employer] [facility] Address [address] [place] [address] Care Team Providers Care Salt Lifter Name Role Phone Ghassan Burciaga MD Primary Care Provider Unavail able Pierre Arevalo MD Primary Care Provider Judy vailable Gersno Dawson MD Primary Care Provider Unavail able [facility], Pcp Primary Care Provider Unavailabl Coleman Sampson MD Primary Care Provider Unavaila Ayo Demarco MD Primary Care Provider Annalee Jones MD Primary Care Provider Un available Pascual Nicholasabela DO Primary Care Pro vider Unavailable Anuj Priest DO Primary Care Provider Judy vailable [facility], Pcp Primary Care Provider Unavailabl e Encounter Details Date Type Department Care Team Description 06/24/2011 Business Doc Medical Records [address] [place] [id number] Abstract, Provider Social History Tobacco Use Types [...] on filedocumented in this encounter Care Teams Salt Lifter Relationship Specialty Start Date End Date Ghassan Burciaga MD PCP - General 07/24/00 05/06/13 Pierre Arevalo MD PCP - General Internal Medicine 05/07/13 4 Gerson Dawson MD PCP - General Internal Medicine 01/30/14 03/20/14 [facility], Pcp PCP - General Internal Medicine 03/21/14 05/06/14 Coleman Mccarthy MD PCP - General Internal Medicine 05/07/14 07/18/16 Ayo Carpio MD [address] [place], [place] [id number] PCP - General Internal Medicine 07/19/16 01/05/17 Annalee Jones MD [address] [place], [place] [id number] PCP - General Internal Medicine 01/06/17 12/02/18 Yolande Nicholas DO [address] [place] [address] PCP - General Internal Medicine 12/03/18 10/08/20 Anuj Priest DO [address] [place] [address] PCP - General Internal Medicine 10/09/20 06/16/21 [facility], Pcp PCP - General Internal Medicine 06/17/21 documented as of this encounter
--- OUTSIDE RECORDS SUMMARY | 2024-06-19 18:26 | XMS_ITS | Encounter Summary ---
Author Organization [facility] Address [address] [place] [address] Care Team Providers Care Newspaper Journalist Name Role Phone Yolande Nicholas DO Primary Care Pro vider Unavailable Anuj Priest DO Primary Care Provider Judy Gardner, Pcp Primary Care Provider Unavailabl e Encounter Details Date Type Department Care Team Description 10/07/2019 Disc Ruler Operator Report Medical Records [address] [place] [address] Dhruv Garcia MD Social History Tobacco Use [...] on filedocumented in this encounter Care Teams Newspaper Journalist Relationship Specialty Start Date End Date Yolande Nicholas DO PCP - General Internal Medicine 12/03/18 10/08/20 Anuj Priest DO PCP - General Internal Medicine 10/09/20 Jj, Pcp PCP - General Internal Medicine 06/17/21 documented as of this encounter
--- OUTSIDE RECORDS SUMMARY | 2024-06-19 18:26 | XMS_ITS | Encounter Summary ---
Author Organization [facility] Address [address] [place] [address] Care Team Providers Care Pastry Wrapper Name Role Phone Ghassan Burciaga MD Primary Care Provider Unavail able Pierre Arevalo MD Primary Care Provider Judy vailable Gerson Dawson MD Primary Care Provider Unavail able [facility], Pcp Primary Care Provider Unavailabl e Coleman Mccarthy MD Primary Care Provider Unavaila Ayo Demarco MD Primary Care Provider [phone] Annalee Jones MD Primary Care Provider Un available Pascual Nicholasabela DO Primary Care Pro vider Unavailable Anuj Priest DO Primary Care Provider Judy vailable [facility], Pcp Primary Care Provider Unavailabl e Encounter Details Date Type Department Care Team Description 10/28/2011 Blocklayer Report Medical Records [address] [place] [address] Nhan Herbert MD Social History Tobacco Use [...] on filedocumented in this encounter Care Teams Pastry Wrapper Relationship Specialty Start Date End Date Ghassan Burciaga MD PCP - General 07/24/00 05/06/13 Pierre Arevalo MD PCP - General Internal Medicine 05/07/13 4 Gerson Dawson MD PCP - General Internal Medicine 01/30/14 03/20/14 [facility], Pcp PCP - General Internal Medicine 03/21/14 05/06/14 Coleman Mccarthy MD PCP - General Internal Medicine 05/07/14 07/18/16 Ayo Carpio MD [address] [place], [place] [phone] PCP - General Internal Medicine 07/19/16 01/05/17 Annalee Jones MD [address] [place], [place] [phone] PCP - General Internal Medicine 01/06/17 12/02/18 Yolande Nicholas DO [address] [place] [address] PCP - General Internal Medicine 12/03/18 10/08/20 Anuj Priest DO [address] [place] [address] PCP - General Internal Medicine 10/09/20 06/16/21 [facility], Pcp PCP - General Internal Medicine 06/17/21 documented as of this encounter
--- OUTSIDE RECORDS SUMMARY | 2024-06-19 18:27 | XMS_ITS | Encounter Summary ---
Author Organization [facility] Address [address] [place] [address] Care Team Providers Care Group Exercise Class Instructor Name Role Phone Annalee Jones MD Primary Care Provider Un available Yolande Nicholas DO Primary Care Pro vider Unavailable Anuj Priest DO Primary Care Provider Judy [facility], Pcp Primary Care Provider Unavailabl e Reason for Visit * Reason Onset Date Comments Prior Authorization 06/27/2018 sildenafil ( REVATIO) 20 MG tablet Encounter Details Date Type Department Care Team Description 06/27/2018 Telephone Adult [address] [address] Annalee Jones MD Prior Authorization (sildenafil (REVATIO) [...] thank you [place] [phone] Prior Auth [facility] Prior Authorizations Ext [phone] Fax: [phone] [place] p [phone] Prior Auth pool * Telephone Encounter - Valerie Hagen - 07/05/2018 2:02 PM EST Dora from [place] appeals calling the medication is not approved by the FDA for this pt's diagnosis please return call [phone] * Telephone Encounter - Annalee Jones MD - 07/05/2018 11:22 AM EST Please obtain urology consultation report * Telephone Encounter - [facility] - 07/05/2018 11:09 AM EST Ed meds are not covered by medicare, per pharmacy pt has been using discount card [place] [phone] Prior Auth [facility] Prior Authorizations Ext [phone] Fax: [phone] [place] [phone] Prior Auth pool * Telephone Encounter - [...] What Pharmacy did the fax come from: [facility] fax #: [phone] [employer] Information from fax: What Prescription Plan does the patient have? BIN/PCN if applicable: N/A Cardholder ID:[id number] Person Code: N/A Relationship Code: N/A Help desk phone: [phone] documented in this encounter Plan of Treatment Not on file documented as of this encounter Visit Diagnoses Not on filedocumented in this encounter Care Teams Group Exercise Class Instructor Relationship Specialty Start Date End Date Annalee Jones MD PCP - General Internal Medicine 01/06/17 9 Yolande Nicholas DO PCP - General Internal Medicine 12/03/18 10/08/20 Anuj Priest DO PCP - General Internal Medicine 10/09/20 2 [facility], Pcp PCP - General Internal Medicine 06/17/21 documented as of this encounter
--- OUTSIDE RECORDS SUMMARY | 2024-06-19 18:27 | XMS_ITS | Encounter Summary ---
Author Organization [facility] Address [address] [place] [address] Care Team Providers Care Spiral Gear Generator Name Role Phone Yolande Nicholas DO Primary Care Pro vider Unavailable Anuj Priest DO Primary Care Provider Judy Gardner, Pcp Primary Care Provider Unavailabl e Encounter Details Date Type Department Care Team Description 12/26/2019 Hospital Medical Records [address] [place] [address] Social History Tobacco Use Types Packs/Day Years [...] on filedocumented in this encounter Care Teams Spiral Gear Generator Relationship Specialty Start Date End Date Yolande Nicholas DO PCP - General Internal Medicine 12/03/18 10/08/20 Anuj Priest DO PCP - General Internal Medicine 10/09/20 2 Jose G Gardner PCP - General Internal Medicine 06/17/21 documented as of this encounter
--- OUTSIDE RECORDS SUMMARY | 2024-06-19 18:27 | XMS_ITS | Clinical Summary ---
Author Organization [employer] Address [address] [facility] [address] [place] [address] Care Team Providers Care Student Ministries Director Name Role Phone Sesar Pereyra MD [...] considered Sleep disorder 02/02/2015 Overview (01/22/2024): Saw [facility] and sleep on 01/15/2015: Dr. Johnson [...] Sees this doctor once a year at [facility]. 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 [address] [place] [address] Sesar Pereyra MD Kidney stone (Primary Dx); Primary hypertension; Low back pain at multiple sites; Tinnitus of right ear; Lower urinary tract symptoms 06/13/2024 Travel 06/12/2024 Orders Only GENERIC EXTERNAL DATA DEPARTMENT Provider, Generic External Data 05/30/[address] [address] Sesar Pereyra MD Lab Orders; Referral 05/30/[address] [facility] [address] [place] [address] Sesar Pereyra MD 05/28/[address] [facility] [address] [place] [address] Sesar Pereyra MD fyi 05/27/[address] [facility] [address] [place] [address] Sesar Pereyra MD 05/23/[address] [address] Sesar Pereyra MD Medication Question 05/15/2024 Telephone [facility] [address] [place] [address] Sesar Pereyra MD 05/09/[address] [facility] [address] [place] [address] Verona Thompson, CLAUDIA 05/07/2024 9:15 AM EST Office Visit [facility] [address] [place] [address] Natasha Jiang MD Kidney stone (Primary Dx) 05/07/[address] [facility] [address] [place] [address] Natasha Jiang MD Medication Question 05/07/[address] [facility] [address] [place] [address] Natasha Jiang MD 05/07/2024 Travel 05/06/[address] [facility] [address] [place] [address] Sesar Pereyra MD Nurse Triage 04/30/[address] [facility] [address] [place] [address] Sesar Pereyra MD Longstanding persistent atrial fibrillation (CMS/HCC); PVD (peripheral vascular disease) (CMS/HCC) 04/29/[address] [facility] [address] [place] [address] Sesar Pereyra MD Closed nondisplaced fracture of acromial end of right clavicle, initial encounter 04/29/[address] [facility] [address] [place] [address] Sesar Pereyra MD Nurse Triage 04/28/[address] [facility] [address] [place] [address] Sesar Pereyra MD 04/26/[address] [facility] [address] [place] [address] Sesar Pereyra MD Closed nondisplaced fracture of acromial end of right clavicle, initial encounter 04/26/[address] [facility] [address] [place] [address] Sesar Pereyra MD Med Refill 04/18/[address] [facility] [address] [place] [address] Loyda Jacobson, CLAUDIA Essential hypertension; Closed nondisplaced fracture of acromial end of right clavicle, initial encounter 04/18/2024 Telephone [facility] [address] [place] [address] Sesar Pereyra MD Med Refill 04/11/[address] [facility] [address] [place] [address] Sesar Pereyra MD 04/11/[address] [facility] [address] [place] [address] Natasha Jiang MD Closed nondisplaced fracture of acromial end of right clavicle, initial encounter 04/11/2024 Travel 04/10/[address] [facility] [address] [place] [address] Sesar Pereyra MD Closed nondisplaced fracture of acromial end of right clavicle, initial encounter 04/10/[address] [address] Sesar Pereyra MD Med Refill 04/03/2024 3:00 PM EST Office Visit [facility] [address] [place] [address] Lauren Vogel MD Cellulitis of left lower extremity (Primary Dx) 04/03/[address] [address] Sesar Pereyra MD Nurse Triage 04/02/[address] [address] Sesar Pereyra MD callback number; Medication Question 04/02/[address] [facility] [address] [place] [address] Sesar Pereyra MD Closed nondisplaced fracture of acromial end of right clavicle, initial encounter 04/02/[address] [facility] [address] [place] [address] Sesar Pereyra MD Med Refill 04/02/2024 Orders Only [facility] [address] [place] [address] Jazmyn Bates MD 04/01/[address] [facility] [address] [place] [address] Sesar Pereyra MD Essential hypertension (Primary Dx) 03/27/2024 9:15 AM EST Office Visit [facility] [address] [place] [address] Sesar Pereyra MD Acute kidney injury (CMS/HCC) (Primary Dx); Closed nondisplaced fracture of acromial end of right clavicle, initial encounter; Longstanding persistent atrial fibrillation (CMS/HCC); Dizziness; Bradycardia 03/27/[address] [facility] [address] [place] [address] Analilia Mart, CLAUDIA Plan of care 03/27/2024 Travel 03/25/[address] [facility] [address] [place] [address] Sesar Pereyra MD Chart Prep 03/22/[address] [address] Sesar Pereyra MD Nurse Triage from Last [...] Description 09/11/2024 10:30 AM EDT Office Visit [facility] [address] [place] [address] Sesar Pereyra MD [address] [place] [address] Health Maintenance Due Date Last Done Comments [...] Name Priority Date/Time Associated Diagnosis Comments XR SHOULDER 2+ VIEWS LEFT Routine 06/19/2024 4:00 PM EST CALCIUM Routine 06/12/2024 12:09 PM EST CREATININE, [...] Relevant to Health Maintenance Results * XR Shoulder 2+ Views Left (06/19/2024 4:00 PM EST) Anatomical Region Laterality Modality Upper Extremities, Shoulder Left Radi ographic Imaging 06/19/2024 4:00 PM EST Narrative 06/19/2024 4:23 PM EST ? [facility] ?[address] ? [place] [address] ?XRay Report ? Signed ? Patient: Alex Nettles ?MR#: [id number] ?? [id number] ? : 1945 ?Acct:[id number] ? Age/Sex: 79 / M ?ADM Date: 06/19/24 ? Loc: HO.HMGCX ? Attending Dr: Teresa Marie PA-C ? Ordering Physician: Teresa Marie PA-C ?? Date of Service: 06/19/24 ?? Procedure(s): XR shoulder LT min 2V ?? Accession Number(s): [id number] ? cc: Sesar Pereyra MD; Teresa Marie PA-C ? EXAMINATION: ?? XR SHOULDER, LEFT ? CLINICAL INFORMATION: ?? M25.512 - Pain in left shoulder ? COMPARISON: ?? None available. ? TECHNIQUE: ?? AP external rotation, Grashey, scapular Y, and axillary views of the ?? left shoulder. ? FINDINGS: ?? There is anteroinferior dislocation of the glenohumeral joint. ?? There is a fracture of the inferior glenoid which is displaced slightly ?? medially by approximately 11 mm. This is likely comminuted. ?? There may be a subtle Hill-Sachs impaction injury. ? No additional fractures seen. The AC joint is intact. Widening of the ?? subacromial space. ? No soft tissue abnormality. ? XR/XR shoulder LT min 2V ?? IMPRESSION: ?? 1. Anteroinferior glenohumeral joint dislocation. ?? 2. Comminuted fracture of the superior and inferior glenoid. ?? 3. Probable Hill-Sachs impaction injury. ? Electronically signed by: ??Jaquan Guillen MD ??06/19/2024 04:21 PM EST RP ? Dictated By: ?Jaquan Guillen MD ? Signed By: ?<Electronically signed by Jaquan Guillen MD in OV> ?06/19/24 1621 ? DD/ 1600 ? TD/TT: 06/19/24 1611 ? Plug Drill Operator: ? Procedure Note Timmelotaylornallely, Image - 06/19/2024 [facility] [address] [place] [address] [place] [address] XRay Report Signed Patient: Ronald Nettles#: [id number] : 1945cct:[id number] Age/Sex: 79 / MADM Date: 06/19/24 Loc: HO.HMGCX Attending Dr: Teresa Marie PA-C Ordering Physician: Teresa Marie PA-C Date of Service: 06/19/24 Procedure(s): XR shoulder LT min 2V Accession Number(s): [id number] cc: Sesar Pereyra MD; Teresa Marie PA-C EXAMINATION: XR SHOULDER, LEFT CLINICAL INFORMATION: M25.512 - Pain in left shoulder COMPARISON: None available. TECHNIQUE: AP external rotation, Grashey, scapular Y, and axillary views of the left shoulder. FINDINGS: There is anteroinferior dislocation of the glenohumeral joint. There is a fracture of the inferior glenoid which is displaced slightly medially by approximately 11 mm. This is likely comminuted. There may be a subtle Hill-Sachs impaction injury. No additional fractures seen. The AC joint is intact. Widening of the subacromial space. No soft tissue abnormality. XR/XR shoulder LT min 2V IMPRESSION: 1. Anteroinferior glenohumeral joint dislocation. 2. Comminuted fracture of the superior and inferior glenoid. 3. Probable Hill-Sachs impaction injury. Electronically signed by: Jaquan Guillen MD 06/19/2024 04:21 PM EST RP Dictated By: Jaquan Guillen MD Signed By: <Electronically signed by Jaquan Guillen MD in OV> 06/19/24 1621 DD/ 1600 TD/TT: 06/19/24 1611 Plug Drill Operator: [facility] External Provider IMG XR PROCEDURES Final Result * Creatinine, Serum (06/12/2024 12:09 PM EST) Creatinine, Serum 1.13 0.5 - 1.4 mg/dL [facility] Estimated Glomerular Filt Rate >60 [facility] Comment:Chronic Kidney Disea se: Estimated GFR < 60 mL/min/1.20k7Gwtcdy Kidney Disease: Estimated GFR < 15 mL/min/1.73m2 06/12/2024 12:0 9 PM EST 06/12/2024 12:14 PM EST Generic External Data Provider LAB BLOOD ORDERAB LES Final Result [facility] [address] [place] [phone] * (ABNORMAL) BUN (Blood Urea Nitrogen) (06/12/2024 12:09 PM EST) Urea Nitrogen (BUN) 18(H) 9 - 16 mg/dL [facility] 06/12/2024 12:0 9 PM EST 06/12/2024 12:14 PM EST Generic External Data Provider LAB BLOOD ORDERAB LES Final Result Performing Organization Address [facility] de Phone Number [facility] [address] [place] [phone] * Calcium (06/12/2024 12:09 PM EST) Calcium 9.1 8.4 - 10.2 mg/dL [facility] 06/12/2024 12:0 9 PM EST 06/12/2024 12:14 PM EST Generic External Data Provider LAB BLOOD ORDERAB LES Final Result Performing Organization Address [facility] Phone Number [facility] [address] [place] [phone] * (ABNORMAL) Electrolyte Panel (06/12/2024 12:09 PM EST) Sodium 142 135 - 145 mmol/L [facility] Potassium 4.0 3.3 - 5.1 mmol/L [facility] Comment:Slight Hemolysis.Int erpret result with caution. Chloride 109(H) 96 - 108 mmol/L [facility] Carbon Dioxide 24 22 - 29 mmol/L [facility] Anion Gap 13 12 - 20 [facility] 06/12/2024 12:0 9 PM EST 06/12/2024 12:14 PM EST Generic External Data Provider LAB BLOOD ORDERAB LES Final Result Performing Organization Address [facility] de Phone Number [facility] [address] [place] [phone] * XR KUB and Upright 2 Views (05/07/2024 10:21 AM EST) Anatomical Region Laterality Modality Radiographic Homa ging 05/07/2024 10:2 1 AM EST Narrative 05/07/2024 10:48 AM EST ? [facility] ?[address] ?[place] [address] ?XRay Report ? Signed ? Patient: Prawismaelki,Alex ?MR#: [id number] ?? [id number] ? : 1945 ?Acct:[id number] ? Age/Sex: 79 / M ?ADM Date: 05/07/24 ? Loc: HO.XRAY ? Attending Dr: Natasha Jiang MD ? Ordering Physician: Natasha Jiang MD ?? Date of Service: 05/07/24 ?? Procedure(s): XR KUB ?? Accession Number(s): [id number] ? cc: Sesar Pereyra MD; Natasha Jiang [...] DD/ 1021 ? TD/TT: 05/07/24 1040 ? Plug Drill Operator: ? Procedure Note Hernandez, Alonzo - 05/07/[address] [address] XRay Report Signed Patient: Ronald Nettles#: [id number] : 7Acct:[id number] Age/Sex: 79 / MADM Date: 05/07/24 Loc: BEBETO Attending Dr: Natasha Jiang MD Ordering Physician: Natasha Jiang MD Date of Service: 05/07/24 Procedure(s): XR KUB Accession Number(s): [id number] cc: Sesar Pereyra MD; Natasha Jiang MD [...] 05/07/24 1045 DD/ 1021 TD/TT: 05/07/24 1040 Plug Drill Operator: Natasha Jiang MD IMG XR [...] EST Heart rate 48 bpm. ??Sinus rhythm. ??[place]: 0 degrees. ??No sign of left atrial enlargement or right atrial enlargement. ??No sign of hypertrophy. ?? T wave inversion in aVL and aVF us Sesar Pereyra MD ECG ORDERABLES Final Resul t * (ABNORMAL) Basic Metabolic Panel (03/27/2024 11:00 AM EST) Pathologist [facility] Sodium 141 135 - 145 mmol/L [facility] Potassium 4.8 3.3 - 5.1 mmol/L [facility] Comment:Slight Hemolysis.Int erpret result with caution. Chloride 109(H) 96 - 108 mmol/L [facility] Carbon Dioxide 21(L) 22 - 29 mmol/L [facility] Anion Gap 16 12 - 20 [facility] Urea Nitrogen (BUN) 21(H) 9 - 16 mg/dL [facility] Creatinine, Serum 1.25 0.5 - 1.4 mg/dL [facility] Estimated Glomerular Filt Rate 56 [facility] Comment:Chronic Kidney Disea se: Estimated GFR < 60 mL/min/1.93y9Luwjwg Kidney Disease: Estimated GFR < 15 mL/min/1.73m2 Glucose 83 60 - 115 mg/dL [facility] Calcium 9.4 8.4 - 10.2 mg/dL [facility] Blood Venous blood specimen / Unknown 03/27/2024 11:00 AM EST 03/27/2024 2:18 PM EST us Sesar Pereyra MD LAB BLOOD ORDERABLES Final Result [facility] [address] [place] [phone] * Hepatitis C Ab (07/19/2023 11:42 AM EDT) Hepatitis C Antibody Nonreactive Nonreactive [facility] Comment:Antibodies to HCV no t detected; does not exclude early acuteHCV infection. Blood Venous blood specimen / Unknown 07/19/2023 11:42 AM EDT 07/19/2023 2:25 PM EDT Sesar Pereyra MD LAB BLOOD ORDERABLES Final Result [facility] [address] [place] [phone] * (ABNORMAL) LIPID PANEL, STANDARD (03/05/2021 [...] ?? Ulisses MCDANIEL et al. MANDEEP. 2013;310(19): 8463-8770 ?? (http://education.[employer]/faq/GYM298) Non-HDL Cholesterol 104 <130 mg/dL (calc) [facility] [...] Lipidol. 2015;9:129-169. ?? 03/05/2021 9:16 AM EDT Sesar Pereyra MD LAB BLOOD ORDERABLES Final Result [facility] [address] from Last 3 Months or Most Recently Relevant to Health Maintenance Insurance [facility] * Guarantor: Alex Nettles Account Type Relation to Patient Date of Phone Billing Address Personal/Family Self [address] [facility] [place] Care Teams Student Ministries Director Relationship Specialty Start Date End Date Sesar Pereyra MD [address] [place] [phone] PCP - General Internal Medicine 03/01/21 [facility] 03/22/24
--- OUTSIDE RECORDS SUMMARY | 2024-06-19 18:27 | XMS_ITS | Encounter Summary ---
Author Organization [facility] Address [address] [place] [address] Care Team Providers Care Telegraphic Typewriter Mechanic Name Role Phone Pierre Arevalo MD Primary Care Provider Judy vailable Gerson Dawson MD Primary Care Provider Unavail able [facility], Pcp Primary Care Provider Unavailabl e Coleman Mccarthy MD Primary Care Provider Unavaila Ayo Demarco MD Primary Care Provider [phone] Annalee Jones MD Primary Care Provider Un available Yolande Nicholas DO Primary Care Pro vider Unavailable Anuj Priest DO Primary Care Provider Judy vailable [facility], Pcp Primary Care Provider Unavailabl e Reason for Visit * Reason Onset Date Comments TEST RESULTS 07/17/2013 Encounter Details Date Type Department Care Team Description 07/17/2013 Telephone Physiatry - [address] [address] Luda Jenkins PA-C TEST RESULTS Social History [...] myelopathy documented in this encounter Care Teams Telegraphic Typewriter Mechanic Relationship Specialty Start Date End Date Pierre Arevalo MD PCP - General Internal Medicine 05/07/13 4 Gerson Dawson MD PCP - General Internal Medicine 01/30/14 03/20/14 [facility], Pcp PCP - General Internal Medicine 03/21/14 05/06/14 Coleman Mccarthy MD PCP - General Internal Medicine 05/07/14 07/18/16 Ayo Carpio MD [address] [place] [address] PCP - General Internal Medicine 07/19/16 01/05/17 Annalee Jones MD [address] [place] [address] PCP - General Internal Medicine 01/06/17 12/02/18 Yolande Nicholas, DO [address] [place] [address] PCP - General Internal Medicine 12/03/18 10/08/20 Anuj Priest, DO [address] [place] [phone] PCP - General Internal Medicine 10/09/20 06/16/21 [facility], Pcp PCP - General Internal Medicine 06/17/21 documented as of this encounter
--- OUTSIDE RECORDS SUMMARY | 2024-06-19 18:27 | XMS_ITS | Encounter Summary ---
Author Organization [facility] Address [address] [place] [address] Care Team Providers Care Application Support Consultant Name Role Phone Annalee Jones MD Primary Care Provider Un available Yolande Nicholas DO Primary Care Pro vider Unavailable Anuj Priest DO Primary Care Provider Judy vailable [facility], Pcp Primary Care Provider Unavailabl e Encounter Details Date Type Department Care Team Description 04/24/2018 Hospital Medical Records [address] [place] [address] Thomas Moise MD Social History Tobacco Use [...] on filedocumented in this encounter Care Teams Application Support Consultant Relationship Specialty Start Date End Date Annalee Jones MD PCP - General Internal Medicine 01/06/17 9 Yolande Nicholas DO PCP - General Internal Medicine 12/03/18 10/08/20 Anuj Priest DO PCP - General Internal Medicine 10/09/20 2 [facility], Pcp PCP - General Internal Medicine 06/17/21 documented as of this encounter
--- OUTSIDE RECORDS SUMMARY | 2024-06-19 18:27 | XMS_ITS | Encounter Summary ---
Author Organization [facility] Address [address] [place] [address] Care Team Providers Care Public Service Administrator Name Role Phone Yolande Nicholas DO Primary Care Pro vider Unavailable Anuj Priest DO Primary Care Provider [facility], Pcp Primary Care Provider Unavailabl e Reason for Visit * Reason Comments E-prescribe Rx Request Encounter Details Date Type Department Care Team Description 01/24/2020 Refill Adult Medicine [address] [address] Alana Stinson MD [address] [place] [phone] E-prescribe Rx Request Social History Tobacco [...] - MEDICARE / Plan: MEDICARE FFS $5 [place] [id number] / Product Type: MEDICARE [id number] documented in this encounter Plan of Treatment Not on file documented as of this encounter Visit Diagnoses Not on filedocumented in this encounter Care Teams Public Service Administrator Relationship Specialty Start Date End Date Yolande Nicholas DO PCP - General Internal Medicine 12/03/18 10/08/20 Anuj Priest DO PCP - General Internal Medicine 10/09/20 2 [facility], Pcp PCP - General Internal Medicine 06/17/21 documented as of this encounter
--- OUTSIDE RECORDS SUMMARY | 2024-06-19 18:27 | XMS_ITS | Encounter Summary ---
Author Organization [employer] Address [address] [facility] 7t [place] [address] Care Team Providers Care Recruiting And Selection Consultant Name Role Phone Sesar Pereyra MD Primary Care Provider [phone] Encounter Details Date Type Department Care Team (Late st Contact Info) Description 04/02/2024 Orders Only [facility] [address] [place] [address] Provider, MD Jazmyn Social History Tobacco Use [...] Description 09/11/2024 10:30 AM EDT Office Visit [facility] MED & PEDS [address] [place] [address] Sesar Pereyra MD [address] [place] [address] documented as of this encounter Procedures Procedure [...] documented as of this encounter Care Teams Recruiting And Selection Consultant Relationship Specialty Start Date End Date Sesar Pereyra MD [address] [place] [address] PCP - General Internal Medicine 03/01/21 [facility] documented as of this encounter
--- OUTSIDE RECORDS SUMMARY | 2024-06-19 18:27 | XMS_ITS | Encounter Summary ---
Author Organization [facility] Address [address] [place] [address] Care Team Providers Care Leg Man Name Role Phone Annalee Jones MD Primary Care Provider Un available Yolande Nicholas DO Primary Care Pro vider Unavailable Anuj Priest DO Primary Care Provider Judy [facility], Pcp Primary Care Provider Unavailabl e Encounter Details Date Type Department Care Team Description 11/14/2017 Pt. Non Urgent Medic al Question Adult Medicine [address] [address] Annalee Joens MD Social History Tobacco Use Types Packs/Day [...] of sildenafil 20Mg 10 Qty. Sent to [facility] y [address] [facility] [address] Tele [phone] documented in this encounter Plan of Treatment Not on file documented as of this encounter Visit Diagnoses Not on filedocumented in this encounter Care Teams Leg Man Relationship Specialty Start Date End Date Annalee Jones MD PCP - General Internal Medicine 01/06/17 9 Yolande Nicholas DO PCP - General Internal Medicine 12/03/18 10/08/20 Anuj Priest DO PCP - General Internal Medicine 10/09/20 2 [facility], Pcp PCP - General Internal Medicine 06/17/21 documented as of this encounter
--- OUTSIDE RECORDS SUMMARY | 2024-06-19 18:27 | XMS_ITS | Encounter Summary ---
Author Organization [employer] Address [address] [facility] 7t [place] [address] Care Team Providers Care Float Nurse Name Role Phone Sesar Pereyra MD Primary Care Provider [phone] Reason for Visit * Reason Onset Date Comments Med Refill 04/02/2024 Encounter Details Date Type Department Care Team ([facility] st Contact Info) Description 04/02/2024 Telephone [facility] MEDICINE [address] [place] [address] Sesar Pereyra MD [address] [place] [address] Med Refill Social History Tobacco Use Types [...] 9:39 AM EST Medication was sent to [facility] on 04/01/24 #30 with 11 refills. * Telephone Encounter - Miri Young - 04/02/2024 9:33 AM EST TC from pt requesting medication refill. Medications needing refill : metoprolol tartrate (Lopressor) 25 MG tablet To be sent to: [facility] # [facility] documented in this encounter Plan of Treatment Upcoming Encounters Date Type Department Care Team (Late st Contact Info) Description 09/11/2024 10:30 AM EDT Office Visit [facility] MED & PEDS [address] [place] [address] Sesar Pereyra MD [address] [place] [address] documented as of this encounter Visit Diagnoses Not on filedocumented in this encounter Additional Health Concerns Assessment Noted Time PHQ-9 Depression Total Score: 16 024 10:59 AM EDT documented as of this encounter Care Teams Float Nurse Relationship Specialty Start Date End Date Sesar Pereyra MD [address] [place] [address] PCP - General Internal Medicine 03/01/21 [facility] 03/22/24 documented as of this encounter
--- OUTSIDE RECORDS SUMMARY | 2024-06-19 18:27 | XMS_ITS | Encounter Summary ---
Author Organization [facility] Address [address] [place] [address] Care Team Providers Care Marketing Manager Health Communications Name Role Phone Ghassan Burciaga MD Primary Care Provider Unavail able Pierre Arevalo MD Primary Care Provider Judy vailable Gerson Dawson MD Primary Care Provider Unavail able [facility], Pcp Primary Care Provider Unavailabl e Coleman Mccarthy MD Primary Care Provider Unavaila Ayo Demarco MD Primary Care Provider [phone] Annalee Jones MD Primary Care Provider Un available Pascual Nicholasabela DO Primary Care Pro vider Unavailable Anuj Priest DO Primary Care Provider Judy vailable [facility], Pcp Primary Care Provider Unavailabl e Encounter Details Date Type Department Care Team Description 01/16/2007 Hospital Medical Records [address] [place] [address] Tyler Bloom MD Social History Tobacco Use [...] on filedocumented in this encounter Care Teams Marketing Manager Health Communications Relationship Specialty Start Date End Date Ghassan Burciaga MD PCP - General 07/24/00 05/06/13 Pierre Arevalo MD PCP - General Internal Medicine 05/07/13 4 Gerson Dawson MD PCP - General Internal Medicine 01/30/14 03/20/14 [facility], Pcp PCP - General Internal Medicine 03/21/14 05/06/14 Coleman Mccarthy MD PCP - General Internal Medicine 05/07/14 07/18/16 Ayo Carpio MD [address] [place], [place] [id number] PCP - General Internal Medicine 07/19/16 01/05/17 Annalee Jones MD [address] [place], [place] [id number] PCP - General Internal Medicine 01/06/17 12/02/18 Yolande Nicholsa, DO [address] [place] [address] PCP - General Internal Medicine 12/03/18 10/08/20 Anuj Priest, [address] [place] [address] PCP - General Internal Medicine 10/09/20 06/16/21 [facility], Pcp PCP - General Internal Medicine 06/17/21 documented as of this encounter
--- OUTSIDE RECORDS SUMMARY | 2024-06-19 18:27 | XMS_ITS | Encounter Summary ---
Author Organization [facility] Address [address] [place] [address] Care Team Providers Care Route Salesman Name Role Phone Yolande Nicholas DO Primary Care Pro vider Unavailable Anuj Priest DO Primary Care Provider Judy [facility], Pcp Primary Care Provider Unavailabl e Encounter Details Date Type Department Care Team Description 12/19/2019 Hospital Medical Records [address] [place] [address] Cedrick Siddiqui Social History Tobacco Use Types [...] filedocumented in this encounter Care Teams Route Salesman Relationship Specialty Start Date End Date Yolande Nicholas DO PCP - General Internal Medicine 12/03/18 10/08/20 Anuj Priest DO PCP - General Internal Medicine 10/09/20 2 Jj, Pcp PCP - General Internal Medicine 06/17/21 documented as of this encounter
--- OUTSIDE RECORDS SUMMARY | 2024-06-19 18:27 | XMS_ITS | Encounter Summary ---
Author Organization [facility] Address [address] [place] [address] Care Team Providers Care Wool Grower Name Role Phone Yolande Nicholas DO Primary Care Pro vider Unavailable Anuj Priest DO Primary Care Provider Judy [place], Pcp Primary Care Provider Unavailabl e Encounter Details Date Type Department Care Team Description 08/29/2019 SNF discharge summary Medical Records [address] [place] [address] Abstract, Provider Social History Tobacco Use Types [...] on filedocumented in this encounter Care Teams Wool Grower Relationship Specialty Start Date End Date Yolande Nicholas DO PCP - General Internal Medicine 12/03/18 10/08/20 Anuj Priest DO PCP - General Internal Medicine 10/09/20 2 [facility], Pcp PCP - General Internal Medicine 06/17/21 documented as of this encounter
--- OUTSIDE RECORDS SUMMARY | 2024-06-19 18:27 | XMS_ITS | Encounter Summary ---
Author Organization [employer] Address [address] [facility] 7t [place] [address] Care Team Providers Care Raw Products Director Name Role Phone Sesar Pereyra MD Primary Care Provider [phone] Encounter Details Date Type Department Care Team [...] 09/11/2024 10:30 AM EDT Office Visit [facility] MED & PEDS [address] [place] [address] Sesar Pereyra MD [address] [place] [address] documented as of this encounter Visit Diagnoses Not on filedocumented in this encounter Additional Health Concerns Assessment Noted Time PHQ-9 Depression Total Score: 16 024 10:59 AM EDT documented as of this encounter Care Teams Raw Products Director Relationship Specialty Start Date End Date Sesar Pereyra MD [address] [place] [address] PCP - General Internal Medicine 03/01/21 [facility] 03/22/[facility] documented as of this encounter
--- OUTSIDE RECORDS SUMMARY | 2024-06-19 18:27 | XMS_ITS | Encounter Summary ---
Author Organization [facility] Address [address] [place] [address] Care Team Providers Care Chief Digital Media Officer Name Role Phone Yolande Nicholas DO Primary Care Pro vider Unavailable Anuj Priest DO Primary Care Provider [facility], Pcp Primary Care Provider Unavailabl e Encounter Details Date Type Department Care Team Description 09/04/2019 Telephone Internal Medicine - [address], [address] [place] [address] Alana Stinson MD [address] [place] [phone] Social History Tobacco Use Types Packs/Day [...] PM EDT Spoke to someone from [facility] rehab they will send discharge notes. * Telephone Encounter - Alana Stinson MD - 09/04/2019 11:48 AM EDT PLS GET DISCHARGE SUMMARY FROM [facility] [place], documented in this encounter Plan of Treatment Not on file documented as of this encounter Visit Diagnoses Not on filedocumented in this encounter Care Teams Chief Digital Media Officer Relationship Specialty Start Date End Date Yolande Nicholas DO PCP - General Internal Medicine 12/03/18 10/08/20 Anuj Priest DO PCP - General Internal Medicine 10/09/20 2 [facility], Pcp PCP - General Internal Medicine 06/17/21 documented as of this encounter
--- OUTSIDE RECORDS SUMMARY | 2024-06-19 18:27 | XMS_ITS | Encounter Summary ---
Author Organization [facility] Address [address] [place] [address] Care Team Providers Care Loss Control Representative Name Role Phone Ayo Carpio MD Primary Care Provider [phone] Annalee Jones MD Primary Care Provider Un available Yolande Nicholas DO Primary Care Pro vider Unavailable Anuj Priest DO Primary Care Provider Judy [facility], Pcp Primary Care Provider Unavailabl e Encounter Details Date Type Department Care Team Description 10/06/2016 Dietitian Teaching Report Medical Records [address] [place] [address] Anuj Easton Social History Tobacco Use Types [...] filedocumented in this encounter Care Teams Loss Control Representative Relationship Specialty Start Date End Date Ayo Carpio MD [address] [place] [address] PCP - General Internal Medicine 07/19/16 01/05/17 Annalee Jones MD [address] [place] [address] PCP - General Internal Medicine 01/06/17 12/02/18 Yolande Nicholas, [address] [place] [address] PCP - General Internal Medicine 12/03/18 10/08/20 Anuj Priest, [address] [place] [address] PCP - General Internal Medicine 10/09/20 06/16/21 [facility], Pcp [address] [place] [address] PCP - General Internal Medicine 06/17/21 documented as of this encounter
--- OUTSIDE RECORDS SUMMARY | 2024-06-19 18:27 | XMS_ITS | Encounter Summary ---
Author Organization [facility] Address [address] [place] [address] Care Team Providers Care Dental Mechanic Name Role Phone Ghassan Burciaga MD Primary Care Provider Unavail able Pierre Arevalo MD Primary Care Provider Judy vailable Gerson Dawson MD Primary Care Provider Unavail able [facility], Pcp Primary Care Provider Unavailabl e Coleman Mccarthy MD Primary Care Provider Unavaila Ayo Demarco MD Primary Care Provider [phone] Annalee Jones MD Primary Care Provider Un available Pascual Nicholasabela DO Primary Care Pro vider Unavailable Anuj Priest DO Primary Care Provider Judy vailable [facility], Pcp Primary Care Provider Unavailabl e Encounter Details Date Type Department Care Team Description 01/30/2009 Hospital Medical Records [address] [place] [address] Fernie Higginbotham MD Social History Tobacco Use [...] on filedocumented in this encounter Care Teams Dental Mechanic Relationship Specialty Start Date End Date Ghassan Burciaga MD PCP - General 07/24/00 05/06/13 Pierre Arevalo MD PCP - General Internal Medicine 05/07/13 4 Gerson Dawson MD PCP - General Internal Medicine 01/30/14 03/20/14 [facility], Pcp PCP - General Internal Medicine 03/21/14 05/06/14 Coleman Mccarthy MD PCP - General Internal Medicine 05/07/14 07/18/16 Ayo Carpio MD [address] [place], [place] [phone] PCP - General Internal Medicine 07/19/16 01/05/17 Annalee Jones MD [address] [place], [place] [phone] PCP - General Internal Medicine 01/06/17 12/02/18 Yolande Nicholas DO [address] [place] [address] PCP - General Internal Medicine 12/03/18 10/08/20 Anuj Priest DO [address] [place] [address] PCP - General Internal Medicine 10/09/20 06/16/21 [facility], Pcp PCP - General Internal Medicine 06/17/21 documented as of this encounter
--- OUTSIDE RECORDS SUMMARY | 2024-06-19 18:27 | XMS_ITS | Encounter Summary ---
Author Organization [facility] Address [address] [place] [address] Care Team Providers Care Control Valve Mechanic Name Role Phone Annalee Jones MD Primary Care Provider Un available Yolande Nicholas DO Primary Care Pro vider Unavailable Anuj Priest DO Primary Care Provider Judy [facility], Pcp Primary Care Provider Unavailabl e Encounter Details Date Type Department Care Team Description 06/13/2018 Refill Adult Medicine [address] [address] Annalee Jones MD Social History Tobacco Use [...] MG tablet [Annalee Jones MD] Preferred pharmacy: [facility] [address] [facility] [address] [place] AT Comment: you have nothing [...] on filedocumented in this encounter Care Teams Control Valve Mechanic Relationship Specialty Start Date End Date Annalee Jones MD PCP - General Internal Medicine 01/06/17 9 Yolande Nicholas DO PCP - General Internal Medicine 12/03/18 10/08/20 Anuj Priest DO PCP - General Internal Medicine 10/09/20 2 [facility], Pcp PCP - General Internal Medicine 06/17/21 documented as of this encounter
--- OUTSIDE RECORDS SUMMARY | 2024-06-19 18:27 | XMS_ITS | Encounter Summary ---
Author Organization [employer] Address [address] [facility] 7t [place] [address] Care Team Providers Care Credit Analyst Name Role Phone Sesar Pereyra MD Primary Care Provider [phone] Reason for Visit * Reason Onset Date Comments Results 06/06/2023 Encounter Details Date Type Department Care Team ([facility] st Contact Info) Description 06/06/2023 Telephone [facility] MEDICINE [address] [place] [address] Sesar Pereyra MD [address] [place] [address] Results Social History Tobacco Use Types Packs/Day [...] Date when done: 06/01/23-06/02/23 pt unsure Facility: [facility] documented in this encounter Plan of Treatment Upcoming Encounters Date Type Department Care Team (Late st Contact Info) Description 09/11/2024 10:30 AM EDT Office Visit [facility] MED & PEDS [address] [place] [address] Sesar Pereyra MD [address] [place] [address] documented as of this encounter Visit Diagnoses Not on filedocumented in this encounter Care Teams Credit Analyst Relationship Specialty Start Date End Date Sesar Pereyra MD [address] [place] [address] PCP - General Internal Medicine 03/01/21 [facility] 03/22/24 documented as of this encounter
--- OUTSIDE RECORDS SUMMARY | 2024-06-19 18:27 | XMS_ITS | Encounter Summary ---
Author Organization [facility] Address [address] [place] [address] Care Team Providers Care Skein Drier Name Role Phone Annalee Jones MD Primary Care Provider Un available Yolande Nicholas DO Primary Care Pro vider Unavailable Anuj Priest DO Primary Care Provider Judy [facility], Pcp Primary Care Provider Unavailabl e Reason for Visit * Reason Onset Date Comments TEST RESULTS 08/24/2018 Encounter Details Date Type Department Care Team Description 08/24/2018 Telephone Adult Medicine [facility] [address] [place] [address] Melva Salgado, [facility] [address] [place] [address] TEST RESULTS Social History Tobacco Use Types [...] on filedocumented in this encounter Care Teams Skein Drier Relationship Specialty Start Date End Date Annalee Jones MD PCP - General Internal Medicine 01/06/17 9 Yolande Nicholas DO PCP - General Internal Medicine 12/03/18 10/08/20 Anuj Priest DO PCP - General Internal Medicine 10/09/20 2 [facility] Pcp PCP - General Internal Medicine 06/17/21 documented as of this encounter
--- OUTSIDE RECORDS SUMMARY | 2024-06-19 18:27 | XMS_ITS | Encounter Summary ---
Author Organization [employer] Address [address] [facility] 7t [place] [address] Care Team Providers Care Procurement Professional Logistics Name Role Phone Sesar Pereyra MD Primary Care Provider [phone] Reason for Visit * Reason Onset Date Comments Med Refill 04/11/2024 Encounter Details Date Type Department Care Team (Late st Contact Info) Description 04/11/2024 Refill [facility] MEDICINE [address] [place] [address] Natasha Jiang MD [address] [place] [address] Closed nondisplaced fracture of acromial end of [...] [facility] Contact Info) Description 09/11/2024 10:30 AM EDT Office Visit [facility] MED & PEDS [address] [place] [address] Sesar Pereyra MD [address] [place] [address] documented as of this encounter Visit Diagnoses Diagnosis Closed nondisplaced fracture of acromial end of right clavicle, initial encounter documented in this encounter Additional Health Concerns Assessment Noted Time PHQ-9 Depression Total Score: 16 024 10:59 AM EDT documented as of this encounter Care Teams Procurement Professional Logistics Relationship Specialty Start Date End Date Sesar Pereyra MD [address] [place] [address] PCP - General Internal Medicine 03/01/21 [facility] 03/[facility] documented as of this encounter
--- OUTSIDE RECORDS SUMMARY | 2024-06-19 18:27 | XMS_ITS | Encounter Summary ---
Author Organization [facility] Address [address] [place] [address] Care Team Providers Care Paralegal Specialist Name Role Phone Annalee Jones MD Primary Care Provider Un available Yolande Nichoals DO Primary Care Pro vider Unavailable Anuj Priest DO Primary Care Provider Judy vailable [facility], Pcp Primary Care Provider Unavailabl e Encounter Details Date Type Department Care Team Description 09/04/2018 Release of Information Medical Records [address] [place] [address] Abstract, Provider Social History Tobacco Use Types [...] on filedocumented in this encounter Care Teams Paralegal Specialist Relationship Specialty Start Date End Date Annalee Jones MD PCP - General Internal Medicine 01/06/17 9 Yolande Nicholas DO PCP - General Internal Medicine 12/03/18 10/08/20 Anuj Priest DO PCP - General Internal Medicine 10/09/20 2 [facility], Pcp PCP - General Internal Medicine 06/17/21 documented as of this encounter
--- OUTSIDE RECORDS SUMMARY | 2024-06-19 18:27 | XMS_ITS | Encounter Summary ---
Author Organization [employer] Address [address] [facility] [address] [place] [address] Care Team Providers Care Merchandising Lead Name Role Phone Seasr Pereyra MD Primary Care Provider [phone]- [phone] Reason for Referral * Consultation (Routine) - Authorized Specialty Diagnoses / Procedures Referred By Wander reynolds Referred To Contact Orthopaedic Surgery Diagnoses Low back pain at multiple sites Sesar Pereyra MD [address] [place] [address] Phone: tel: fax: [facility] [address] [place] [address] Phone: tel: Referral ID Status Reason Start Date Expiration Date Visits Requested Visits Authorized [id number] Authorized Specialty Services Required 06/13/2024 06/13/2025 1 1 * Consultation (Routine) - Closed Specialty Diagnoses / Procedures Referred By Wander reynolds Referred To Contact Otolaryngology Diagnoses Tinnitus of right ear Sesar Pereyra MD [address] [place] [address] Phone: tel: fax: [facility] [address] Phone: tel: fax: Referral ID Status Reason Start Date Expiration Date V isits Requested Visits Authorized [id number] Closed Specialty Services Required 06/13/2024 06/13/2025 1 1 Reason for Visit * Reason Comments Follow-up Kidney stones Encounter Details Date Type Department Care Team ([facility] Contact Info) Description 06/13/2024 1:00 PM EST Office Visit [facility] MED & PEDS [address] [place] [address] Sesar Pereyra MD [address] [place] [address] Kidney stone (Primary Dx); Primary hypertension; Low [...] in general. 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
--- OUTSIDE RECORDS SUMMARY | 2024-06-19 18:27 | XMS_ITS | Encounter Summary ---
Author Organization [employer] Address [address] [facility] 7t [place] [address] Care Team Providers Care Powerplant Operator Name Role Phone Sesar Pereyra MD Primary Care Provider [phone]- [phone] Encounter Details Date Type Department Care Team ([facility] st Contact Info) Description 04/01/2024 Orders Only [facility] MED & PEDS [address] [place], [place] [phone] Sesar Pereyra MD [address] [place] [address] Essential hypertension (Primary Dx) Social History Tobacco [...] Upcoming Encounters Date Type Department Care Team ([facility] st Contact Info) Description 09/11/2024 10:30 AM EDT Office Visit [facility] MED & PEDS [address] [place] [address] Sesar Pereyra MD [address] [place] [address] documented as of this encounter Visit Diagnoses Diagnosis Essential hypertension- Primary Unspecified essential hypertension documented in this encounter Additional Health Concerns Assessment Noted Time PHQ-9 Depression Total Score: 16 024 10:59 AM EDT documented as of this encounter Care Teams Powerplant Operator Relationship Specialty Start Date End Date Sesar Pereyra MD [address] [place] [address] PCP - General Internal Medicine 03/01/21 [facility] 03/22/24 documented as of this encounter
--- OUTSIDE RECORDS SUMMARY | 2024-06-19 18:27 | XMS_ITS | Encounter Summary ---
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[place] Report Medical Records [address] [place] [address] Abstract, Provider Social History Tobacco Use Types [...] filedocumented in this encounter Care Teams Director Franchise Sales Relationship Specialty Start Date End Date Coleman Mccarthy MD PCP - General Internal Medicine 05/07/14 07/18/16 Ayo Carpio MD [address] [place] [address] [phone] PCP - General Internal Medicine 07/19/16 01/05/17 Annalee Jones MD [address] [place] [address] PCP - General Internal Medicine 01/06/17 12/02/18 Yolande Nicholas, [address] [place] [address] PCP - General Internal Medicine 12/03/18 10/08/20 Anuj Priest DO [address] [place] [address] PCP - General Internal Medicine 10/09/20 06/16/21 [facility], Pcp [address] [place] [address] PCP - General Internal Medicine 06/17/21 documented as of this encounter
--- OUTSIDE RECORDS SUMMARY | 2024-06-19 18:27 | XMS_ITS | Clinical Summary ---
Author Organization [facility] Address [address] [place] [address] Care Team Providers Care Shop Teacher Name Role Phone Nuha Galvin PA-C Primary [...] Date Sleep disorder 02/02/2015 Overview (02/02/2015): Saw [facility] and sleep on 01/15/2015: Dr. Johnson [...] once a year. In remission Seen at [facility] urology Depression with anxiety 04/01/2014 Overview (04/01/2014): Dr. Pradhan at [facility]. Is going to establish care at a new facility. PVD (peripheral vascular dis ease) with claudication ([facility]) 04/01/2014 Overview (07/04/2014): Fem-Fem done by Dr. Hensley in 2006. Sees this doctor once a year at [facility]. Follows up with this facility every 6 months. 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 4.[address] Herbert [...] SAFETY NET MEDICARE - [place] Care Teams Shop Teacher Relationship Specialty Start Date End Date Nuha Galvin PA-C [address] [place] [address] PCP - General 03/21/18
--- OUTSIDE RECORDS SUMMARY | 2024-06-19 18:27 | XMS_ITS | Encounter Summary ---
Author Organization [facility] Address [address] [place] [address] Care Team Providers Care Dermatologist Name Role Phone Yolande Nicholas DO Primary Care Pro vider Unavailable Anuj Priest DO Primary Care Provider [facility], Pcp Primary Care Provider Unavailabl e Reason for Visit * Reason Onset Date Comments Faxed Order 01/03/2020 Encounter Details Date Type Department Care Team Description 01/03/2020 Telephone Adult [address] [address] Yolande Nicholas DO Faxed Order Social History [...] on filedocumented in this encounter Care Teams Dermatologist Relationship Specialty Start Date End Date Yolande Nicholas DO PCP - General Internal Medicine 12/03/18 10/08/20 Anuj Priest DO PCP - General Internal Medicine 10/09/[address] [place] [address], Pcp PCP - General Internal Medicine 06/17/21 documented as of this encounter
--- OUTSIDE RECORDS SUMMARY | 2024-06-19 18:27 | XMS_ITS | Encounter Summary ---
Author Organization [employer] Address 75 [facility] 7t [place] [address] Care Team Providers Care Cosmetics Supervisor Name Role Phone Sesar Pereyra MD Primary Care Provider [phone]- [phone] Reason for Visit * Reason Comments Med Refill Encounter Details Date Type Department Care Team ([facility] st Contact Info) Description 08/29/2023 Refill [facility] MED[facility]INE [address] [place] [address] Sesar Pereyra MD [address] [place] [address] Social History Tobacco Use Types Packs/Day Years [...] [facility] MED [facility] PED[facility] [address] [place] [address] Sesar Pereyra MD [address] [place] [address] documented as of this encounter Visit Diagnoses Not on filedocumented in this encounter Additional Health Concerns Assessment Noted Time PHQ-9 Depression Total Score: 16 024 10:59 AM EDT documented as of this encounter Care Teams Cosmetics Supervisor Relationship Specialty Start Date End Date Sesar Pereyra MD [address] [place] [address] PCP - General Internal Medicine 03/01/21 [facility] 03/22/24 documented as of this encounter
--- OUTSIDE RECORDS SUMMARY | 2024-06-19 18:27 | XMS_ITS | Encounter Summary ---
Author Organization [employer] Address [address] [facility] 7t [place] [address] Care Team Providers Care Chainstitch Tunnel Elastic Operator Name Role Phone Sesar Pereyra MD Primary Care Provider [phone] Encounter Details Date Type Department Care Team [...] Upcoming Encounters Date Type Department Care Team ([facility] st Contact Info) Description 09/11/2024 10:30 AM EDT Office Visit [facility] CHC MED & PEDS [address] [place] [address] Sesar Pereyra MD [address] [place] [address] documented as of this encounter Procedures Procedure Name Priority Date/Time Associated Diagnosis Comments XR SHOULDER 2+ VIEWS LEFT Routine 06/19/2024 4:00 PM EST CREATININE, SERUM Routine 06/12/2024 12: 09 PM EST UREA NITROGEN (BUN) Routine 06/12/2024 1 2:09 PM EST CALCIUM Routine 06/12/2024 12:09 PM EST ELECTROLYTE PANEL Routine 06/12/2024 12: 09 PM EST documented in this encounter Results * XR Shoulder 2+ Views Left (06/19/2024 4:00 PM EST) Anatomical Region Laterality Modality Upper Extremities, Shoulder Left Radi ographic Imaging 06/19/2024 4:00 PM EST Narrative 06/19/2024 4:23 PM EST ? [facility] ?[address] ? [place] [address] ?XRay Report ? Signed ? Patient: Tho,Alex ?MR#: [id number] ?? [id number] ? : 1945 ?Acct:[id number] ? Age/Sex: 79 / M ?ADM Date: //25 ? Loc: HO.HMGCX ? Attending Dr: Teresa Marie PA-C ? Ordering Physician: Teresa Marie PA-C ?? Date of Service: 06/19/24 ?? Procedure(s): XR shoulder LT min 2V ?? Accession Number(s): [id number] ? cc: Sesar Pereyra MD; Teresa Marie [...] Guillen MD ??06/19/2024 04:21 PM EST RP ?? Workstation: [id number] ? Dictated By: ?Jaquan Guillen MD ? Signed By: ?<Electronically signed by Jaquan Guillen MD in OV> ?06/19/24 1621 ? DD/ 1600 ? TD/TT: 06/19/24 1611 ? Punchboard Filling Machine Operator: ? Procedure Note Alonzo Ng - 06/19/2024 [facility] [address] [place] [address] XRay Report Signed Patient: Alex Nettles#: [id number] : 7Acct:[id number] Age/Sex: 79 / MADM Date: 06/19/24 Loc: HO.HMGCX Attending Dr: Teresa Marie PA-C Ordering Physician: Teresa Marie PA-C Date of Service: 06/19/24 Procedure(s): XR shoulder LT min 2V Accession Number(s): [id number] cc: Sesar Pereyra MD; Teresa Marie PA-C [...] Jaquan Guillen MD 06/19/2024 04:21 PM EST Dictated By: Jaquan Guillen MD Signed By: <Electronically signed by Jaquan Guillen MD in OV> 06/19/24 1621 DD/ 1600 TD/TT: 06/19/24 1611 Punchboard Filling Machine Operator: [facility] External Provider IMG XR PROCEDURES Final Result * Calcium (06/12/2024 12:09 PM EST) Calcium 9.1 8.4 - 10.2 mg/dL [facility] 06/12/2024 12:0 9 PM EST 06/12/2024 12:14 PM EST Generic External Data Provider LAB BLOOD ORDERAB LES Final Result [facility] [address] [place] [phone] * Creatinine, Serum (06/12/2024 12:09 PM EST) Creatinine, Serum 1.13 0.5 - 1.4 mg/dL [facility] Estimated Glomerular Filt Rate >60 [facility] Comment:Chronic Kidney Disea se: Estimated GFR < 60 mL/min/1.37g4Gqvgxx Kidney Disease: Estimated GFR < 15 mL/min/1.73m2 06/12/2024 12:0 9 PM EST 06/12/2024 12:14 PM EST us Generic External Data Provider LAB BLOOD ORDERAB LES Final Result Performing Organization Address [facility] Co ms Phone Number [facility] [address] [place] [phone] * (ABNORMAL) BUN (Blood Urea Nitrogen) (06/12/2024 12:09 PM EST) Urea Nitrogen (BUN) 18(H) 9 - 16 mg/dL [facility] 06/12/2024 12:0 9 PM EST 06/12/2024 12:14 PM EST Generic External Data Provider LAB BLOOD ORDERAB LES Final Result Performing Organization Address City/[facility] Co de Phone Number [facility] [address] [place] [phone] * (ABNORMAL) Electrolyte Panel (06/12/2024 12:09 PM EST) Sodium 142 135 - 145 mmol/L [facility] Potassium 4.0 3.3 - 5.1 mmol/L [facility] Comment:Slight Hemolysis.Int erpret result with caution. Chloride 109(H) 96 - 108 mmol/L [facility] Carbon Dioxide 24 22 - 29 mmol/L [facility] Anion Gap 13 12 - 20 [facility] 06/12/2024 12:0 9 PM EST 06/12/2024 12:14 PM EST us Generic External Data Provider LAB BLOOD ORDERAB LES Final Result [facility] [address] [place] [address] [phone] documented in this encounter Visit Diagnoses Not on filedocumented in this encounter Additional Health Concerns Assessment Noted Time PHQ-9 Depression Total Score: 16 024 10:59 AM EDT documented as of this encounter Care Teams Chainstitch Tunnel Elastic Operator Relationship Specialty Start Date End Date Sesar Pereyra MD [address] [place] [address] PCP - General Internal Medicine 03/01/21 [facility] 03/22/24 documented as of this encounter
--- OUTSIDE RECORDS SUMMARY | 2024-06-19 18:27 | XMS_ITS | Encounter Summary ---
Author Organization [facility] Address [address] [place] [address] Care Team Providers Care Accounts Specialist Name Role Phone Ayo Carpio MD Primary Care Provider [phone] Annalee Jones MD Primary Care Provider Un available Yolande Nicholas DO Primary Care Pro vider Unavailable Anuj Priest DO Primary Care Provider Judy [facility], Pcp Primary Care Provider Unavailabl e Encounter Details Date Type Department Care Team Description 10/19/2016 Orders Only Adult Medicine [address] [phone] Ayo Carpio MD [address] [place] [address] [phone] Lung nodule (Primary Dx) Social History Tobacco [...] nodule documented in this encounter Care Teams Accounts Specialist Relationship Specialty Start Date End Date Ayo Carpio MD [address] [place] [address] [phone] PCP - General Internal Medicine 07/19/16 01/05/17 Annalee Jones MD [address] [place] [address] PCP - General Internal Medicine 01/06/17 12/02/18 Yolande Nicholas, [address] [place] [address] PCP - General Internal Medicine 12/03/18 10/08/20 Anuj Priest DO [address] [place] [address] PCP - General Internal Medicine 10/09/20 06/16/21 [facility], Pcp [address] [place] [address] PCP - General Internal Medicine 06/17/21 documented as of this encounter
--- OUTSIDE RECORDS SUMMARY | 2024-06-19 18:27 | XMS_ITS | Encounter Summary ---
Author Organization [facility] Address [address] [place] [address] Care Team Providers Care Sliver Lap Machine Tender Name Role Phone Ghassan Burciaga MD Primary Care Provider Unavail able Pierre Arevalo MD Primary Care Provider Judy vailable Gerson Dawson MD Primary Care Provider Unavail able [facility], Pcp Primary Care Provider Unavailabl e Coleman Mccarthy MD Primary Care Provider Unavaila Ayo Demarco MD Primary Care Provider [phone] Annalee Jones MD Primary Care Provider Un available Pascual Nicholasabela DO Primary Care Pro vider Unavailable Anuj Priest DO Primary Care Provider Judy vailable [facility], Pcp Primary Care Provider Unavailabl e Encounter Details Date Type Department Care Team Description 08/29/2011 Release of Information Medical Records [address] [place] [phone] Abstract, Provider Social History Tobacco Use Types [...] on filedocumented in this encounter Care Teams Sliver Lap Machine Tender Relationship Specialty Start Date End Date Ghassan Burciaga MD PCP - General 07/24/00 05/06/13 Pierre Arevalo MD PCP - General Internal Medicine 05/07/13 4 Gerson Dawson MD PCP - General Internal Medicine 01/30/14 03/20/14 [facility], Pcp PCP - General Internal Medicine 03/21/14 05/06/14 Coleman Mccarthy MD PCP - General Internal Medicine 05/07/14 07/18/16 Ayo Carpio MD [address] [place], [place] [phone] PCP - General Internal Medicine 07/19/16 01/05/17 Annalee Jones MD [address] [place], [place] [phone] PCP - General Internal Medicine 01/06/17 12/02/18 Yolande Nicholas DO [address] [place] [address] PCP - General Internal Medicine 12/03/18 10/08/20 Anuj Priest DO [address] [place] [address] PCP - General Internal Medicine 10/09/20 06/16/21 [facility], Pcp PCP - General Internal Medicine 06/17/21 documented as of this encounter
--- OUTSIDE RECORDS SUMMARY | 2024-06-19 18:27 | XMS_ITS | Encounter Summary ---
Author Organization [facility] Address [address] [place] [address] Care Team Providers Care Instrument Technician Name Role Phone Annalee Jones MD Primary Care Provider Un available Yolande Nicholas DO Primary Care Pro vider Unavailable Anuj Priest DO Primary Care Provider Judy vailable [facility], Pcp Primary Care Provider Unavailabl e Encounter Details Date Type Department Care Team Description 08/24/2017 Release of Information Medical Records [address] [place] [phone] Abstract, Provider Social History Tobacco Use Types [...] on filedocumented in this encounter Care Teams Instrument Technician Relationship Specialty Start Date End Date Annalee Jones MD PCP - General Internal Medicine 01/06/17 9 Yolande Nicholas DO PCP - General Internal Medicine 12/03/18 10/08/20 Anuj Priest DO PCP - General Internal Medicine 10/09/20 2 Jj, Pcp PCP - General Internal Medicine 06/17/21 documented as of this encounter
--- OUTSIDE RECORDS SUMMARY | 2024-06-19 18:27 | XMS_ITS | Encounter Summary ---
Author Organization [facility] Address [address] [place] [address] Care Team Providers Care Printing Specialist Name Role Phone Yolande Nicholas DO Primary Care Pro vider Unavailable Anuj Priest DO Primary Care Provider Judy álvarez [facility], Pcp Primary Care Provider Unavailabl e Encounter Details Date Type Department Care Team Description 09/07/2020 Manager Agency Report Medical Records [address] [place] [address] Dhruv Garcia MD Social History Tobacco Use [...] on filedocumented in this encounter Care Teams Printing Specialist Relationship Specialty Start Date End Date Yolande Nicholas DO PCP - General Internal Medicine 12/03/18 10/08/20 Anuj Priest DO PCP - General Internal Medicine 10/09/20 [facility], Pcp PCP - General Internal Medicine 06/17/21 documented as of this encounter
--- OUTSIDE RECORDS SUMMARY | 2024-06-19 18:27 | XMS_ITS | Encounter Summary ---
Author Organization [facility] Address [address] [place] [address] Care Team Providers Care Black Belt Name Role Phone Yolande Nicholas DO Primary Care Pro vider Unavailable Anuj Priest DO Primary Care Provider [facility], Pcp Primary Care Provider [facility] Encounter Details Date Type Department Care Team Description 01/22/2020 Pt. Non Urgent Medic al Question Adult Medicine [address] [address] Yolande Nicholas DO Social History Tobacco Use [...] they are planning to do in the [facility] oming weeks. At this point we have followed all your previous orders regarding who to see and when. Regarding meeting Arun's Behavioral Health Needs, we are working with Luda He APRN at [facility] in [place], [place] P: [phone] Therefore, from all the doctor's reports you [...] on filedocumented in this encounter Care Teams Black Belt Relationship Specialty Start Date End Date Yolande Nicholas DO PCP - General Internal Medicine 12/03/18 10/08/20 Anuj Priest DO PCP - General Internal Medicine 10/09/[address] [place] [address], Pcp PCP - General Internal Medicine 06/17/21 documented as of this encounter
--- OUTSIDE RECORDS SUMMARY | 2024-06-19 18:27 | XMS_ITS | Encounter Summary ---
Author Organization [facility] Address [address] [place] [address] Care Team Providers Care Workforce Services Representative Name Role Phone Yolande Nicholas DO Primary Care Pro vider Unavailable Anuj Priset DO Primary Care Provider [facility], Pcp Primary Care Provider Unavailabl e Reason for Visit * Reason Onset Date Comments [facility] Call 12/28/2019 Encounter Details Date Type Department Care Team Description 12/28/2019 Telephone Adult Urgent Care - [address] [address] Yolande Nicholas DO VNA Call Social History [...] [facility]NA CALL Which [facility] office is calling? [place] [facility] Full name of caller: Bev The [...] on filedocumented in this encounter Care Teams Workforce Services Representative Relationship Specialty Start Date End Date Yolande Nicholas DO PCP - General Internal Medicine 12/03/18 10/08/20 Anuj Priest DO PCP - General Internal Medicine 10/09/[address] [place] [address], Pcp PCP - General Internal Medicine 06/17/21 documented as of this encounter
--- OUTSIDE RECORDS SUMMARY | 2024-06-19 18:27 | XMS_ITS | Encounter Summary ---
Author Organization [employer] Address [address] [facility] 7t [place] [address] Care Team Providers Care Tanker Driver Name Role Phone Sesar Pereyra MD Primary Care Provider [phone] Encounter Details Date Type Department Care Team ([facility] st Contact Info) Description 04/29/2024 Orders Only [facility] CHC MED & PEDS [address] [place], [place] [phone] Sesar Pereyra MD [address] [place] [address] Closed nondisplaced fracture of acromial end of [...] Upcoming Encounters Date Type Department Care Team ([facility] st Contact Info) Description 09/11/2024 10:30 AM EDT Office Visit [facility] MED & PEDS [address] [place] [address] Sesar Pereyra MD [address] [place] [address] documented as of this encounter Visit Diagnoses Diagnosis Closed nondisplaced fracture of acromial end of right clavicle, initial encounter documented in this encounter Additional Health Concerns Assessment Noted Time PHQ-9 Depression Total Score: 16 024 10:59 AM EDT documented as of this encounter Care Teams Tanker Driver Relationship Specialty Start Date End Date Sesar Pereyra MD [address] [place] [address] PCP - General Internal Medicine 03/01/21 [facility] 03/22/24 documented as of this encounter
--- OUTSIDE RECORDS SUMMARY | 2024-06-19 18:27 | XMS_ITS | Encounter Summary ---
Author Organization [facility] Address [address] [place] [address] Care Team Providers Care Folder Machine Name Role Phone Yolande Nicholas DO Primary Care Pro vider Unavailable Anuj Priest DO Primary Care Provider [facility], Pcp Primary Care Provider Unavailabl e Reason for Visit * Reason Onset Date Comments Faxed Order 02/21/2020 Encounter Details Date Type Department Care Team Description 02/21/2020 Telephone Adult [address] [address] Yolande Nicholas DO Faxed Order Social History [...] on filedocumented in this encounter Care Teams Folder Machine Relationship Specialty Start Date End Date Yolande Nicholas DO PCP - General Internal Medicine 12/03/18 10/08/20 Anuj Priest DO PCP - General Internal Medicine 10/09/[address] [place] [address], Pcp PCP - General Internal Medicine 06/17/21 documented as of this encounter
--- OUTSIDE RECORDS SUMMARY | 2024-06-19 18:27 | XMS_ITS | Encounter Summary ---
Author Organization [facility] Address [address] [place] [address] Care Team Providers Care Hospital Corpsman Name Role Phone Yolande Nicholas DO Primary Care Pro vider Unavailable Anuj Priest DO Primary Care Provider [facility], Pcp Primary Care Provider [facility] e Encounter Details Date Type Department Care Team Description 06/26/2020 Pt. Non Urgent Medic al Question Adult Medicine [address] [address] Yolande Nicholas DO Social History Tobacco Use [...] Sent: 06/26/2020 8:37 AM EST Subject: referal [facility] 0ccupational therapy Lymphadema diagnosis for a referal [id number] Alex Nettles 1945 documented in this encounter Plan of Treatment Not on file documented as of this encounter Visit Diagnoses Not on filedocumented in this encounter Care Teams Hospital Corpsman Relationship Specialty Start Date End Date Yolande Nicholas DO PCP - General Internal Medicine 12/03/18 10/08/20 Anuj Priest DO PCP - General Internal Medicine 10/09/20 2 [facility], Pcp PCP - General Internal Medicine 06/17/21 documented as of this encounter
--- OUTSIDE RECORDS SUMMARY | 2024-06-19 18:27 | XMS_ITS | Encounter Summary ---
Author Organization [facility] Address [address] [place] [address] Care Team Providers Care Planer Operator Name Role Phone Yolande Nicholas DO Primary Care Pro vider Unavailable Anuj Priest DO Primary Care Provider [facility], Pcp Primary Care Provider Unavailabl e Reason for Visit * Reason Onset Date Comments VNA Call 01/28/2020 Encounter Details Date Type Department Care Team Description 01/28/2020 Telephone Adult [address] [address] Yolande Nicholas DO VNA Call Social History [...] Kan R.N. - 01/28/2020 8:57 AM EDT [phone] (home) Pt is being seen by surgeons [...] on filedocumented in this encounter Care Teams Planer Operator Relationship Specialty Start Date End Date Yolande Nicholas DO PCP - General Internal Medicine 12/03/18 10/08/20 Anuj Priest DO PCP - General Internal Medicine 10/09/[address] [place] [address], Pcp PCP - General Internal Medicine 06/17/21 documented as of this encounter
--- OUTSIDE RECORDS SUMMARY | 2024-06-19 18:27 | XMS_ITS | Encounter Summary ---
Author Organization [facility] Address [address] [place] [address] Care Team Providers Care Foreign Service Teacher Name Role Phone Yolande Nicholas DO Primary Care Pro vider Unavailable Anuj Priest DO Primary Care Provider Judy Gardner, Pcp Primary Care Provider Unavailabl e Encounter Details Date Type Department Care Team Description 11/28/2019 Tabulating Supervisor Report Medical Records [address] [place] [address] Cedrick Siddiqui Social History Tobacco Use Types [...] on filedocumented in this encounter Care Teams Foreign Service Teacher Relationship Specialty Start Date End Date Yolande Nicholas DO PCP - General Internal Medicine 12/03/18 10/08/20 Anuj Priest DO PCP - General Internal Medicine 10/09/20 2 Jj, Pcp PCP - General Internal Medicine 06/17/21 documented as of this encounter
--- OUTSIDE RECORDS SUMMARY | 2024-06-19 18:27 | XMS_ITS | Encounter Summary ---
Author Organization [facility] Address [address] [place] [address] Care Team Providers Care Application Developer Manager Name Role Phone Ghassan Burciaga MD Primary Care Provider Unavail able Pierre Arevalo MD Primary Care Provider Judy vailable Gerson Dawson MD Primary Care Provider Unavail able [facility], Pcp Primary Care Provider Unavailabl e Coleman Mccarthy MD Primary Care Provider Unavaila Ayo Demarco MD Primary Care Provider [phone] Annalee Jones MD Primary Care Provider Un available Pascual Nicholasabela DO Primary Care Pro vider Unavailable Anuj Priest DO Primary Care Provider Judy vailable [facility], Pcp Primary Care Provider Unavailabl e Encounter Details Date Type Department Care Team Description 11/07/2012 Pt. Non Urgent Medic al Question Medicine/Pediatrics - [address] [address] Ghassan Burciaga MD Social History Tobacco Use [...] MonNov 07, 2012 3:01 PM Subject: prescription [id number] Rohith Leung documented in this encounter Plan of Treatment Not on file documented as of this encounter Visit Diagnoses Not on filedocumented in this encounter Care Teams Application Developer Manager Relationship Specialty Start Date End Date Ghassan Burciaga MD PCP - General 07/24/00 05/06/13 Pierre Arevalo MD PCP - General Internal Medicine 05/07/13 4 Gerson Dawson MD PCP - General Internal Medicine 01/30/14 03/20/14 [facility], Pcp PCP - General Internal Medicine 03/21/14 05/06/14 Coleman Mccarthy MD PCP - General Internal Medicine 05/07/14 07/18/16 Ayo Carpio MD [address] [place], [place] [id number] PCP - General Internal Medicine 07/19/16 01/05/17 Annalee Jones MD [address] [place] [address] PCP - General Internal Medicine 01/06/17 12/02/18 Yolande Nicholas, DO [address] [place] [address] PCP - General Internal Medicine 12/03/18 10/08/20 Anuj Priest, [address] [place] [address] PCP - General Internal Medicine 10/09/20 06/16/21 [facility], Pcp PCP - General Internal Medicine 06/17/21 documented as of this encounter
--- OUTSIDE RECORDS SUMMARY | 2024-06-19 18:27 | XMS_ITS | Encounter Summary ---
Author Organization [facility] Address [address] [place] [address] Care Team Providers Care Painting And Coating Worker Name Role Phone Yolande Nicholas DO Primary Care Pro vider Unavailable Anuj Priest DO Primary Care Provider [facility], Pcp Primary Care Provider Unavailabl e Reason for Visit * Reason Onset Date Comments Information Needed 09/06/2019 Encounter Details Date Type Department Care Team Description 09/06/2019 Telephone Adult [address] [address] Yolande Nicholas DO Information Needed Social History [...] Perez M.A. - 09/06/2019 2:36 PM EDT [facility] - [phone] Left detailed msg for pt to call above number to request the discharge summary, Unable to get the D/C summary through [employer] * Telephone Encounter - Judith Cardenas - 09/06/2019 10:47 AM EDT Patient's girlfriend Ame is requesting the discharge summary to be faxed to Dr. Baker to [phone] * Telephone Encounter - Sabina Zaman - 09/06/2019 9:49 AM EDT Ame, the patient girlfriend is calling stating that the patient needs the discharge summary from [facility] to sent [facility] to [facility], to Dr. Duc Baker for his audio visit 09/06/2019 in order for the patient to continue to get prescribe his anxiety medication. Please advise. documented in this encounter Plan of Treatment Not on file documented as of this encounter Visit Diagnoses Not on filedocumented in this encounter Care Teams Painting And Coating Worker Relationship Specialty Start Date End Date Yolande Nicholas DO PCP - General Internal Medicine 12/03/18 10/08/20 Anuj Priest DO PCP - General Internal Medicine 10/09/[address] [place] [address], Pcp PCP - General Internal Medicine 06/17/21 documented as of this encounter
--- OUTSIDE RECORDS SUMMARY | 2024-06-19 18:27 | XMS_ITS | Encounter Summary ---
Author Organization [facility] Address [address] [place] [address] Care Team Providers Care Director Systems Name Role Phone Anuj Priest DO Primary Care Provider Judy vailable [facility], Pcp Primary Care Provider Unavailabl e Encounter Details Date Type Department Care Team Description 06/10/2021 Telephone Adult Medicine [facility] [address] [place] [address] Anuj Priest DO Social History Tobacco Use [...] filedocumented in this encounter Care Teams Director Systems Relationship Specialty Start Date End Date Anuj Priest DO PCP - General Internal Medicine 10/09/20 2 [facility], Pcp PCP - General Internal Medicine 06/17/21 documented as of this encounter
--- OUTSIDE RECORDS SUMMARY | 2024-06-19 18:27 | XMS_ITS | Encounter Summary ---
Author Organization [employer] Address [address] [facility] [address] [place] [address] Care Team Providers Care Production Expert Name Role Phone Sesar Pereyra MD Primary Care Provider [phone] Reason for Visit * Reason Onset Date Comments Med Refill 04/28/2024 Encounter Details Date Type Department Care Team ([facility] st Contact Info) Description 04/28/2024 Refill [facility] MED & PEDS [address] [place] [address] Sesar Pereyra MD [address] [place] [address] Social History Tobacco Use Types Packs/Day Years [...] Upcoming Encounters Date Type Department Care Team ([facility] st Contact Info) Description 09/11/2024 10:30 AM EDT Office Visit [facility] MED & PEDS [address] [place] [address] Sesar Pereyra MD [address] [place] [address] documented as of this encounter Visit Diagnoses Not on filedocumented in this encounter Additional Health Concerns Assessment Noted Time PHQ-9 Depression Total Score: 16 024 10:59 AM EDT documented as of this encounter Care Teams Production Expert Relationship Specialty Start Date End Date Sesar Pereyra MD [address] [place] [address] PCP - General Internal Medicine 03/01/21 [facility] 03/22/24 documented as of this encounter
--- OUTSIDE RECORDS SUMMARY | 2024-06-19 18:27 | XMS_ITS | Encounter Summary ---
Author Organization [facility] Address [address] [place] [address] Care Team Providers Care Embossing Machine Operator Name Role Phone Yolande Nicholas DO Primary Care Pro vider Unavailable Anuj Priest DO Primary Care Provider [facility], Pcp Primary Care Provider Unavailabl e Reason for Visit * Reason Onset Date Comments Provider Call Back 01/29/2020 FYI Encounter Details Date Type Department Care Team Description 01/29/[address] [address] Yolande Nicholas DO Provider Call Back (FYI) [...] YES Reason for call back: transporting to [facility]. Going to ER and hoping tohave him admitted today. Has consultation with Dr Ben Rodriguez, endovascular surgeon on 02-06-20 [place] Caller offered to speak with the nurse for assistance: YES Response: Patient offered to speak with nurse for assistance and patient agreed. Message forwarded to nurse. documented in this encounter Plan of Treatment Not on file documented as of this encounter Visit Diagnoses Not on filedocumented in this encounter Care Teams Embossing Machine Operator Relationship Specialty Start Date End Date Yolande Nicholas DO PCP - General Internal Medicine 12/03/18 10/08/20 Anuj Priest DO PCP - General Internal Medicine 10/09/[address] [place] [address], Pcp PCP - General Internal Medicine 06/17/21 documented as of this encounter
--- OUTSIDE RECORDS SUMMARY | 2024-06-19 18:27 | XMS_ITS | Encounter Summary ---
Author Organization [facility] Address [address] [place] [address] Care Team Providers Care Ticket Machine Operator Name Role Phone Yolande Nicholas DO Primary Care Pro vider Unavailable Anuj Priest DO Primary Care Provider [facility], Pcp Primary Care Provider Unavailabl e Reason for Visit * Reason Onset Date Comments Faxed Order 02/14/2020 Encounter Details Date Type Department Care Team Description 02/14/2020 Telephone Adult Medicine [address] [address] Yolande Nicholas DO Faxed Order Social History [...] filedocumented in this encounter Care Teams Ticket Machine Operator Relationship Specialty Start Date End Date Yolande Nicholas DO PCP - General Internal Medicine 12/03/18 10/08/20 Anuj Priest DO PCP - General Internal Medicine 10/09/[address] [place] [address], Pcp PCP - General Internal Medicine 06/17/21 documented as of this encounter
--- OUTSIDE RECORDS SUMMARY | 2024-06-19 18:27 | XMS_ITS | Encounter Summary ---
Author Organization [employer] [facility] Address [address] [place] [address] Care Team Providers Care Tram Inspector Name Role Phone Ghassan Burciaga MD Primary Care Provider Unavail able Pierre Arevalo MD Primary Care Provider Judy vailable Gerson Dawson MD Primary Care Provider Unavail able [facility], Pcp Primary Care Provider Unavailabl e Coleman Mccarthy MD Primary Care Provider Unavaila Ayo Demarco MD Primary Care Provider [phone] Annalee Jones MD Primary Care Provider Un available Pascual Nicholasabela DO Primary Care Pro vider Unavailable Anuj Priest DO Primary Care Provider Judy vailable [facility], Pcp Primary Care Provider Unavailabl e Encounter Details Date Type Department Care Team Description 08/26/2011 Correspondence Section Supervisor Report Medical Records [address] [place] [id number] Anuj [place] Social History Tobacco Use Types [...] on filedocumented in this encounter Care Teams Tram Inspector Relationship Specialty Start Date End Date Ghassan Burciaga MD PCP - General 07/24/00 05/06/13 Pierre Arevalo MD PCP - General Internal Medicine 05/07/13 4 Gerson Dawson MD PCP - General Internal Medicine 01/30/14 03/20/14 [facility], Pcp PCP - General Internal Medicine 03/21/14 05/06/14 Coleman Mccarthy MD PCP - General Internal Medicine 05/07/14 07/18/16 Ayo Carpio MD [address] [place], [place] [id number] PCP - General Internal Medicine 07/19/16 01/05/17 Annalee Jones MD [address] [place], [place] [id number] PCP - General Internal Medicine 01/06/17 12/02/18 Yolande Nicholas DO [address] [place] [address] PCP - General Internal Medicine 12/03/18 10/08/20 Anuj Priest DO [address] [place] [address] PCP - General Internal Medicine 10/09/20 06/16/21 [facility], Pcp PCP - General Internal Medicine 06/17/21 documented as of this encounter
--- OUTSIDE RECORDS SUMMARY | 2024-06-19 18:27 | XMS_ITS | Encounter Summary ---
Author Organization [employer] Address [address] [facility] 7[address] [place] [address] Care Team Providers Care Senior Property Accountant Name Role Phone Sesar Pereyra MD Primary Care Provider [phone] Reason for Visit * Reason Onset Date Comments Med Refill 04/26/2024 Encounter Details Date Type Department Care Team ([facility] st Contact Info) Description 04/26/2024 Telephone [facility] MED[facility] [address] [place] [address] Sesar Pereyra MD [address] [place] [address] Med Refill Social History Tobacco Use Types [...] 7.5 MG tablet To be sent to: [id number] - [place], [place] - [address] documented in this encounter Plan of Treatment Upcoming Encounters Date Type Department Care Team (Late st Contact Info) Description 09/11/2024 10:30 AM EDT Office Visit [facility] MED & PEDS [address] [place] [address] Sesar Pereyra MD [address] [place] [address] documented as of this encounter Visit Diagnoses Not on filedocumented in this encounter Additional Health Concerns Assessment Noted Time PHQ-9 Depression Total Score: 16 024 10:59 AM EDT documented as of this encounter Care Teams Senior Property Accountant Relationship Specialty Start Date End Date Sesar Pereyra MD [address] [place] [address] PCP - General Internal Medicine 03/01/21 [facility] 03/22/24 documented as of this encounter
--- OUTSIDE RECORDS SUMMARY | 2024-06-19 18:28 | XMS_ITS | Encounter Summary ---
Author Organization [employer] Address [address] [facility] [address] [place] [address] Care Team Providers Care News Correspondent Name Role Phone Sesar Pereyra MD Primary Care Provider [phone] Reason for Visit * Reason Onset Date Comments fyi 05/28/2024 Encounter Details Date Type Department Care Team ([facility] st Contact Info) Description 05/28/2024 Telephone [facility] MEDICINE [address] [place] [address] Sesar Pereyra MD [address] [place] [address] fy Social History Tobacco Use Types Packs/Day [...] - 05/28/2024 9:37 AM EST Tc from [facility] with [employer] [facility] informing pt verbalized to her that he been taking THD Gummies 2x a day morning and afternoon. Gummies are 10mg per gummy as he's aware of what he's taking. documented in this encounter Plan of Treatment Upcoming Encounters Date Type Department Care Team ([facility] st Contact Info) Description 09/11/2024 10:30 AM EDT Office Visit [facility] MED & PEDS [address] [place] [address] Sesar Pereyra MD [address] [place] [address] documented as of this encounter Visit Diagnoses Not on filedocumented in this encounter Additional Health Concerns Assessment Noted Time PHQ-9 Depression Total Score: 16 024 10:59 AM EDT documented as of this encounter Care Teams News Correspondent Relationship Specialty Start Date End Date Sesar Pereyra MD [address] [place] [address] PCP - General Internal Medicine 03/01/21 [facility] 03/22/24 documented as of this encounter
--- OUTSIDE RECORDS SUMMARY | 2024-06-19 18:28 | XMS_ITS | Encounter Summary ---
Author Organization [facility] Address [address] [place] [address] Care Team Providers Care Rubber Compounder Supervisor Name Role Phone Yolande Nicholas DO Primary Care Pro vider Unavailable Anuj Priest DO Primary Care Provider Judy álvarez [facility], Pcp Primary Care Provider Unavailabl e Encounter Details Date Type Department Care Team Description 05/04/2020 Drying Unit Felting Machine Operator Report Medical Records [address] [place] [address] Dhruv Garcia MD Social History Tobacco Use [...] on filedocumented in this encounter Care Teams Rubber Compounder Supervisor Relationship Specialty Start Date End Date Yolande Nicholas DO PCP - General Internal Medicine 12/03/18 10/08/20 Anuj Priest DO PCP - General Internal Medicine 10/09/20 Molly Gardner, Pcp PCP - General Internal Medicine 06/17/21 documented as of this encounter
--- OUTSIDE RECORDS SUMMARY | 2024-06-19 18:28 | XMS_ITS | Clinical Summary ---
Author Organization Unknown Care Team Providers Care Senior Sales Director Name Role Phone MARCO RAMIREZ, POOJA Unavailable Unavailabl e JIMENEZ PT, COURTNEY Unavailable Unavailable SPAFFORD OT, DAGO Unavailable Unavailable CONDINO FERNY/CALZADA, ANGUS Unavailable Unav ailable FECTEAU BUSINESS SPECIALIST, JANETT Unavailable Unavailable LESLYE RN, DAGOBERTO Unavailable Unavailab abraham CARRION TEAM LEADER/RESEARCH PSYCHOLOGIST, ANTONIO Unavailable Unavailable JOSE RAFAEL SKAGGSN, YORDAN Unavailable Unavail able Payers Payer Name Policy Type Policy Number Effective Date Expira tion Date [facility] [id number] Problems Condition Name Condition Details Condition Category [...] 2023-05 00:00: 00 ATHSCL HEART DISEASE OF [place] CORONARY ARTERY W/O ANG PCTRS Active 05-01 [...] HISTORY OF COVID-19 Active 2023-05 00:00: 00 CORRECTION (CURRENT) USE OF ANTICOAGULAN TS Active 2023-05 [...] 2023-05 00:00: 00 05-16 23:59 :00 No [id number] PAIN 15 mg EVERY 6 HOURS NEEDED 15 mg EVERY 6 HOURS NEEDED (route: oral) Med Classific ation: Analgesic , Anti-infl ammatory or Antipyret ic clonazepam 0.5 mg tablet 2023-05 00:00: 00 Yes [id number] ANXIETY 0.5 mg 2 TIMES DAILY 0.5 mg 2 TIMES DAILY (route: oral) Med Classific ation: Central Nervous System Agents lisinopril 40 mg tablet 2023-05 00:00: 00 03-21 23:59 :00 No [id number] CAD 40 mg DAILY 40 mg DAILY (route: oral) Med Classific ation: Cardiovas cular Therapy Agents atorvastati n 80 mg tablet 2023-05 00:00: 00 Yes [id number] HYPERTENSIO N 80 mg DAILY 80 mg DAILY (route: oral) Med Classific ation: Cardiovas cular Therapy Agents cilostazol 50 mg tablet 2023-05 00:00: 00 Yes [id number] HYPERTENSIO N 50 mg 2 TIMES DAILY 50 mg 2 TIMES DAILY (route: oral) Med Classific ation: Hematolog ical Agents clopidogrel 75 mg tablet 2023-05 00:00: 00 03-21 23:59 :00 No [id number] CORONARY ARTERY DISEASE 75 mg DAILY 75 mg DAILY (route: oral) Med Classific ation: Hematolog ical Agents Eliquis 5 mg tablet 2023-05 00:00: 00 Yes [id number] ANTI ARRHYTHMIC 5 mg 2 TIMES DAILY 5 mg 2 TIMES DAILY (route: oral) Med Classific ation: Hematolog ical Agents furosemide 40 mg tablet 2023-05 00:00: 00 03-21 23:59 :00 No [id number] BPH 40 mg DAILY 40 mg DAILY (route: oral) Alternate Route: INTRA-MUS CULAR. Med Classific ation: Cardiovas cular Therapy Agents metoprolol tartrate 50 mg tablet 2023-05 00:00: 00 03-22 23:59 :00 No [id number] CAD 50 mg DAILY 50 mg DAILY (route: oral) Med Classific ation: Cardiovas cular Therapy Agents quetiapine 25 mg tablet 2023-05 00:00: 00 Yes [id number] MOOD STABILIZER 25 mg 2 TIMES DAILY 25 mg 2 TIMES DAILY (route: oral) Med Classific ation: Central Nervous System Agents sertraline 50 mg tablet 2023-05 00:00: 00 Yes [id number] MOOD STABILIZER 50 mg DAILY 50 mg DAILY (route: oral) Med Classific ation: Central Nervous System Agents tamsulosin 0.4 mg capsule 2023-05 00:00: 00 Yes [id number] BPH 0.4 mg DAILY 0.4 mg DAILY (route: oral) Med Classific ation: Genitouri nary Therapy docusate sodium 100 mg tablet 2023-05 00:00: 00 Yes [id number] CONSTIPATIO N 100 mg DAILY 100 mg DAILY (route: oral) Med Classific ation: Gastroint estinal Therapy Agents gabapentin 100 mg capsule 2023-05 00:00: 00 Yes [id number] PAIN 1-3 capsule BEDTIME 1-3 capsule BEDTIME (route: oral) Med Classific ation: Central Nervous System Agents metoprolol tartrate 25 mg tablet 2023-05 00:00: 00 03-27 16:09 :43.1 53 No [id number] HYPERTENSIO N 25 mg 2 TIMES DAILY 25 mg 2 TIMES DAILY (route: oral) Med Classific ation: Cardiovas cular Therapy Agents Multaq 400 mg tablet 2023-05 00:00: 00 Yes [id number] ANTIARRHYTH MICHAEL 400 mg 2 TIMES DAILY 400 mg 2 TIMES DAILY (route: oral) Med Classific ation: Cardiovas cular Therapy Agents furosemide 40 mg tablet 2023-05 00:00: 00 Yes [id number] edema 1 tablet DAILY 1 tablet DAILY (route: oral) Med Classific ation: Cardiovas cular Therapy Agents dextroamphe tamine-amph etamine 7.5 mg tablet 2023-05 00:00: 00 Yes [id number] attention 1 tablet DAILY 1 tablet DAILY (route: oral) Med Classific ation: Central Nervous System Agents metoprolol tartrate 25 mg tablet 2023-05 00:00: 00 Yes [id number] heart rate 0.5 tablet 2 TIMES DAILY 0.5 tablet 2 TIMES DAILY (route: oral) Med Classific ation: Cardiovas cular Therapy Agents cephalexin 500 mg capsule 2023-05 00:00: 00 04-10 23:59 :00 No [id number] CELLULITIS LLL 500 mg 4 TIMES DAILY 500 mg 4 TIMES DAILY (route: oral) Med Classific ation: Anti-Infe ctive Agents hydralazine 25 mg tablet 2023-05 00:00: 00 Yes [id number] HTN 25 mg 2 TIMES DAILY 25 [...] CONSULTING PHYSICIANS. RN TO OBSERVE AND ASSESS, LAY OUT MAKER/INTELLECTUAL PROPERTY LEGAL ASSISTANT TO OBSERVE FOR RISK FOR FALLS AND INSTRUCT IN FALL PREVENTION, HOME SAFETY, MEDICATION MANAGEMENT, INFECTION PREVENTION, AND NUTRITION MANAGEMENT. RN/LAY OUT MAKER/INTELLECTUAL PROPERTY LEGAL ASSISTANT NURSE MAY PERFORM O2 SATURATION LEVEL ON ADMISSION AND PRN FOR RN TO ASSESS/LAY OUT MAKER TO OBSERVE PATIENT, WITH NOTIFICATION TO THE PHYSICIAN IF SATURATION IS 90% IN THE ABSENCE OF MORE SPECIFIC PARAMETERS FROM THE PHYSICIAN. AGENCY MAY PERFORM A RESUMPTION OF CARE VISIT FOLLOWING ANY HOSPITAL ADMISSION. RN/LAY OUT MAKER/INTELLECTUAL PROPERTY LEGAL ASSISTANT TO MONITOR CO-MORBID CONDITIONS LISTED ON THE PLAN OF CARE AND ANY NEW CONDITIONS THAT PRESENT THEMSELVES DURING THIS EPISODE TO IDENTIFY CHANGES AND INTERVENE TO MINIMIZE COMPLICATIONS. [code = RN TO OBSERVE, ASSESS, EVALUATE, AND DEVELOP AN INDIVIDUALIZED PLAN OF CARE. AGENCY MAY ACCEPT ORDERS FROM CONSULTING PHYSICIANS. RN TO OBSERVE AND ASSESS, LAY OUT MAKER/INTELLECTUAL PROPERTY LEGAL ASSISTANT TO OBSERVE FOR RISK FOR FALLS AND INSTRUCT IN FALL PREVENTION, HOME SAFETY, MEDICATION MANAGEMENT, INFECTION PREVENTION, AND NUTRITION MANAGEMENT. RN/LAY OUT MAKER/INTELLECTUAL PROPERTY LEGAL ASSISTANT NURSE MAY PERFORM O2 SATURATION LEVEL ON ADMISSION AND PRN FOR RN TO ASSESS/LAY OUT MAKER TO OBSERVE PATIENT, WITH NOTIFICATION TO THE PHYSICIAN IF SATURATION IS 90% IN THE ABSENCE OF MORE SPECIFIC PARAMETERS FROM THE PHYSICIAN. AGENCY MAY PERFORM A RESUMPTION OF CARE VISIT FOLLOWING ANY HOSPITAL ADMISSION. RN/LAY OUT MAKER/INTELLECTUAL PROPERTY LEGAL ASSISTANT TO MONITOR CO-MORBID CONDITIONS LISTED ON THE PLAN OF CARE AND ANY NEW CONDITIONS THAT PRESENT THEMSELVES DURING THIS EPISODE TO IDENTIFY CHANGES AND INTERVENE TO MINIMIZE COMPLICATIONS.] Future Scheduled Test MEDICATION MANAGEMENT; RN/LAY OUT MAKER/INTELLECTUAL PROPERTY LEGAL ASSISTANT TO REVIEW MEDICATIONS FOR INTERACTIONS, EFFECTIVENESS OF DRUG THERAPY, AND SIGNS/SYMPTOMS OF ADVERSE REACTIONS. MAY INSTRUCT AND REINFORCE MEDICATION TEACHING RELATED TO THE USE OF MEDICATIONS, DOSAGE, FREQUENCY, PURPOSE, SIDE EFFECTS, AND TO REPORT COMPLICATIONS. HELP SET UP BUBBLE PACKS [code = MEDICATION MANAGEMENT; RN/LAY OUT MAKER/INTELLECTUAL PROPERTY LEGAL ASSISTANT TO REVIEW MEDICATIONS FOR INTERACTIONS, EFFECTIVENESS OF DRUG THERAPY, AND SIGNS/SYMPTOMS OF ADVERSE REACTIONS. MAY INSTRUCT AND REINFORCE MEDICATION TEACHING RELATED TO THE USE OF MEDICATIONS, DOSAGE, FREQUENCY, PURPOSE, SIDE EFFECTS, AND TO REPORT COMPLICATIONS. HELP SET UP BUBBLE PACKS] Future Scheduled Test RISK FOR H OSPITALIZATION; RN TO ASSESS/TEACH, INTELLECTUAL PROPERTY LEGAL ASSISTANT/LAY OUT MAKER TO OBSERVE/TEACH PATIENT/CAREGIVER ON RISK FOR HOSPITALIZATION/EMERGENCY ROOM VISITS, TEACH SIGNS AND SYMPTOMS THAT PUT PATIENT AT RISK, WHEN TO NOTIFY NURSE/PHYSICIAN OF COMPLICATIONS/DECLINE, AND WHEN TO CALL 911. [code = RISK FOR HOSPITALIZATION; RN TO ASSESS/TEACH, INTELLECTUAL PROPERTY LEGAL ASSISTANT/LAY OUT MAKER TO OBSERVE/TEACH PATIENT/CAREGIVER ON RISK FOR HOSPITALIZATION/EMERGENCY ROOM VISITS, TEACH SIGNS AND SYMPTOMS THAT PUT PATIENT AT RISK, WHEN TO NOTIFY NURSE/PHYSICIAN OF COMPLICATIONS/DECLINE, AND WHEN TO CALL 911.] Future Scheduled Test CARDIOVASC ULAR SYSTEM; RN TO ASSESS/TEACH, LAY OUT MAKER/INTELLECTUAL PROPERTY LEGAL ASSISTANT TO OBSERVE/TEACH RELATED TO ALTERED CARDIOVASCULAR STATUS TO MINIMIZE COMPLICATIONS AND REDUCE HOSPITALIZATION. [code = CARDIOVASCULAR SYSTEM; RN TO ASSESS/TEACH, LAY OUT MAKER/INTELLECTUAL PROPERTY LEGAL ASSISTANT TO OBSERVE/TEACH RELATED TO ALTERED CARDIOVASCULAR STATUS TO MINIMIZE COMPLICATIONS AND REDUCE HOSPITALIZATION.] Future Scheduled Test HYPERTENSI ON MANAGEMENT; RN TO ASSESS AND TEACH, LAY OUT MAKER/INTELLECTUAL PROPERTY LEGAL ASSISTANT TO OBSERVE AND TEACH WARNING SIGNS AND SYMPTOMS TO AVOID HOSPITALIZATION. [code = HYPERTENSION MANAGEMENT; RN TO ASSESS AND TEACH, LAY OUT MAKER/INTELLECTUAL PROPERTY LEGAL ASSISTANT TO OBSERVE AND TEACH WARNING SIGNS AND SYMPTOMS TO AVOID HOSPITALIZATION.] Future Scheduled Test ARRHYTHMIA MANAGEMENT; RN TO ASSESS AND TEACH, LAY OUT MAKER/INTELLECTUAL PROPERTY LEGAL ASSISTANT TO OBSERVE AND TEACH WARNING SIGNS AND SYMPTOMS TO AVOID HOSPITALIZATION. [code = ARRHYTHMIA MANAGEMENT; RN TO ASSESS AND TEACH, LAY OUT MAKER/INTELLECTUAL PROPERTY LEGAL ASSISTANT TO OBSERVE AND TEACH WARNING SIGNS AND SYMPTOMS TO AVOID HOSPITALIZATION.] Future Scheduled Test SKIN INTEG RITY RN TO ASSESS AND TEACH, LAY OUT MAKER/INTELLECTUAL PROPERTY LEGAL ASSISTANT TO OBSERVE AND TEACH INTEGUMENTARY STATUS TO IDENTIFY CHANGES AND INTERVENE TO MINIMIZE COMPLICATIONS. PROVIDE SKILLED TEACHING OF GENERAL WOUND AND SKIN CARE AND PREVENTION RELATED TO POTENTIAL FOR ALTERED SKIN INTEGRITY [code = SKIN INTEGRITY RN TO ASSESS AND TEACH, LAY OUT MAKER/INTELLECTUAL PROPERTY LEGAL ASSISTANT TO OBSERVE AND TEACH INTEGUMENTARY STATUS TO IDENTIFY CHANGES AND INTERVENE TO MINIMIZE COMPLICATIONS. PROVIDE SKILLED TEACHING OF GENERAL WOUND AND SKIN CARE AND PREVENTION RELATED TO POTENTIAL FOR ALTERED SKIN INTEGRITY ] Future Scheduled Test PAIN MANAG EMENT; RN TO ASSESS AND TEACH, INTELLECTUAL PROPERTY LEGAL ASSISTANT/LAY OUT MAKER TO OBSERVE AND TEACH AND PROVIDE EDUCATION ON PAIN MANAGEMENT TECHNIQUES. [code = PAIN MANAGEMENT; RN TO ASSESS AND TEACH, INTELLECTUAL PROPERTY LEGAL ASSISTANT/LAY OUT MAKER TO OBSERVE AND TEACH AND PROVIDE EDUCATION ON PAIN MANAGEMENT TECHNIQUES.] Future Scheduled Test FALL REDUC TION MANAGEMENT; RN TO ASSESS AND OBSERVE, LAY OUT MAKER/INTELLECTUAL PROPERTY LEGAL ASSISTANT TO OBSERVE FALL RISK FACTORS AND EDUCATE PATIENT/CAREGIVER ON STRATEGIES TO MINIMIZE THE RISK OF FALLING. [code = FALL REDUCTION MANAGEMENT; RN TO ASSESS AND OBSERVE, LAY OUT MAKER/INTELLECTUAL PROPERTY LEGAL ASSISTANT TO OBSERVE FALL RISK FACTORS AND EDUCATE PATIENT/CAREGIVER ON STRATEGIES TO MINIMIZE THE RISK OF FALLING.] Future Scheduled Test RESPIRATOR Y SYSTEM MANAGEMENT; RN TO ASSESS AND TEACH, LAY OUT MAKER/INTELLECTUAL PROPERTY LEGAL ASSISTANT TO OBSERVE AND TEACH RELATED TO ALTERED RESPIRATORY STATUS TO MINIMIZE COMPLICATIONS AND REDUCE HOSPITALIZATION. [code = RESPIRATORY SYSTEM MANAGEMENT; RN TO ASSESS AND TEACH, LAY OUT MAKER/INTELLECTUAL PROPERTY LEGAL ASSISTANT TO OBSERVE AND TEACH RELATED TO ALTERED [...] End Date/Time Encounter Type Admission Type Attending [facility] Care Department Encounter ID Discharge Date Discharge Status Discharge Condition Discharge Reason Percent Goals Met 2024-03-22 00:00:00 2024-07-19 00:00:00 Outpatient JOSE MARIARTIFIC DAGOBERTO NEIL [facility] [id number]
--- OUTSIDE RECORDS SUMMARY | 2024-06-19 18:28 | XMS_ITS | Encounter Summary ---
Author Organization [employer] [facility] Address [address] [place] [address] Care Team Providers Care Medication Manager Name Role Phone Ghassan Burciaga MD Primary Care Provider Unavail able Pierre Arevalo MD Primary Care Provider Judy vailable Gerson Dawson MD Primary Care Provider Unavail able [facility], Pcp Primary Care Provider Unavailabl Coleman Sampson MD Primary Care Provider Unavaila Ayo Demarco MD Primary Care Provider [phone] Annalee Jones MD Primary Care Provider Un available Pascual Nicholasabela DO Primary Care Pro vider Unavailable Anuj Preist DO Primary Care Provider Judy vailable [facility], Pcp Primary Care Provider Unavailabl e Encounter Details Date Type Department Care Team Description 10/12/2009 Controlled Substance Contract with [facility] Medical Records [address] [place] [id number] Abstract, Provider Social History Tobacco Use Types [...] on filedocumented in this encounter Care Teams Medication Manager Relationship Specialty Start Date End Date Ghassan Burciaga MD PCP - General 07/24/00 05/06/13 Pierre Arevalo MD PCP - General Internal Medicine 05/07/13 4 Gerson Dawson MD PCP - General Internal Medicine 01/30/14 03/20/14 [facility], Pcp PCP - General Internal Medicine 03/21/14 05/06/14 Coleman Mccarthy MD PCP - General Internal Medicine 05/07/14 07/18/16 Ayo Carpio MD [address] [place] [address] PCP - General Internal Medicine 07/19/16 01/05/17 Annalee Jones MD [address] [place] [address] PCP - General Internal Medicine 01/06/17 12/02/18 Yolande Nicholas DO [address] [place] [address] PCP - General Internal Medicine 12/03/18 10/08/20 Anuj Priest DO [address] [place] [address] PCP - General Internal Medicine 10/09/20 06/16/21 [facility], Pcp PCP - General Internal Medicine 06/17/21 documented as of this encounter
--- OUTSIDE RECORDS SUMMARY | 2024-06-19 18:28 | XMS_ITS | Encounter Summary ---
Author Organization [facility] Address [address] [place] [address] Care Team Providers Care Goggles Assembler Name Role Phone Yolande Nicholas DO Primary Care Pro vider Unavailable Anuj Priest DO Primary Care Provider [facility], Pcp Primary Care Provider Unavailabl e Encounter Details Date Type Department Care Team Description 03/13/2020 Pt. Non Urgent Medic al Question Adult Medicine [address] [address] Yolande Nicholas DO Social History Tobacco Use [...] on filedocumented in this encounter Care Teams Goggles Assembler Relationship Specialty Start Date End Date Yolande Nicholas DO PCP - General Internal Medicine 12/03/18 10/08/20 Anuj Priest DO PCP - General Internal Medicine 10/09/20 2 [facility], Pcp PCP - General Internal Medicine 06/17/21 documented as of this encounter
--- OUTSIDE RECORDS SUMMARY | 2024-06-19 18:28 | XMS_ITS | Encounter Summary ---
Author Organization [employer] Address [address] [facility] [address] [place] [address] Care Team Providers Care Formation Fracturing Operator Name Role Phone Sesar Pereyra MD Primary Care Provider [phone] Reason for Visit * Reason Comments Med Refill Encounter Details Date Type Department Care Team ([facility] Contact Info) Description 06/10/2022 Refill [facility] [address] [place] [address] Sesar Pereyra MD [address] [place] [address] Primary insomnia Social History Tobacco Use Types [...] Upcoming Encounters Date Type Department Care Team ([facility] Contact Info) Description 09/11/2024 10:30 AM EDT Office Visit [facility] [address] [place] [address] Sesar Pereyra MD [address] [place] [address] documented as of this encounter Visit Diagnoses Diagnosis Primary insomnia Persistent disorder of initiating or maintaining sleep documented in this encounter Care Teams Formation Fracturing Operator Relationship Specialty Start Date End Date Sesar Pereyra MD [address] [place] [address] PCP - General Internal Medicine 03/01/21 [facility] 03/22/24 documented as of this encounter
--- OUTSIDE RECORDS SUMMARY | 2024-06-19 18:28 | XMS_ITS | Encounter Summary ---
Author Organization [facility] Address [address] [place] [address] Care Team Providers Care Experimental Assembler Name Role Phone Yolande Nicholas DO Primary Care Pro vider Unavailable Anuj Priest DO Primary Care Provider [facility], Pcp Primary Care Provider Unavailabl e Reason for Visit * Reason Onset Date Comments Faxed Order 03/07/2020 Encounter Details Date Type Department Care Team Description 03/07/[address] [address] Yolande Nicholas DO Faxed Order Social History [...] TO BE SIGN AND FAX BACK TO [phone]. documented in this encounter Plan of Treatment Not on file documented as of this encounter Visit Diagnoses Not on filedocumented in this encounter Care Teams Experimental Assembler Relationship Specialty Start Date End Date Yolande Nicholas DO PCP - General Internal Medicine 12/03/18 10/08/20 Anuj Priest DO PCP - General Internal Medicine 10/09/[address] [place] [address], Pcp PCP - General Internal Medicine 06/17/21 documented as of this encounter
--- OUTSIDE RECORDS SUMMARY | 2024-06-19 18:28 | XMS_ITS | Encounter Summary ---
Author Organization [employer] [facility] Address [address] [place] [address] Care Team Providers Care Academic Services Coordinator Name Role Phone Ghassan Burciaga MD Primary Care Provider Unavail able Pierre Arevalo MD Primary Care Provider Judy vailable Gerson Dawson MD Primary Care Provider Unavail able [facility], Pcp Primary Care Provider Unavailabl e Coleman Mccarthy MD Primary Care Provider Unavaila Ayo Demarco MD Primary Care Provider Annalee Jones MD Primary Care Provider Un available Pascual Nicholasabela DO Primary Care Pro vider Unavailable Anuj Priest DO Primary Care Provider Judy vailable [facility], Pcp Primary Care Provider Unavailabl e Encounter Details Date Type Department Care Team Description 08/06/2010 Release of Information Medical Records [address] [place] [id number] Abstract, Provider Social History Tobacco Use Types [...] on filedocumented in this encounter Care Teams Academic Services Coordinator Relationship Specialty Start Date End Date Ghassan Burciaga MD PCP - General 07/24/00 05/06/13 Pierre Arevalo MD PCP - General Internal Medicine 05/07/13 4 Gerson Dawson MD PCP - General Internal Medicine 01/30/14 03/20/14 [facility], Pcp PCP - General Internal Medicine 03/21/14 05/06/14 Coleman Mccarthy MD PCP - General Internal Medicine 05/07/14 07/18/16 Ayo Carpio MD [address] [place] [address] PCP - General Internal Medicine 07/19/16 01/05/17 Annalee Jones MD [address] [place] [address] PCP - General Internal Medicine 01/06/17 12/02/18 Yolande Nicholas, [address] [place] [address] PCP - General Internal Medicine 12/03/18 10/08/20 Anuj Priest DO [address] [place] [address] PCP - General Internal Medicine 10/09/20 06/16/21 [facility], Pcp PCP - General Internal Medicine 06/17/21 documented as of this encounter
--- OUTSIDE RECORDS SUMMARY | 2024-06-19 18:28 | XMS_ITS | Encounter Summary ---
Author Organization [facility] Address [address] [place] [address] Care Team Providers Care Running Rigger Name Role Phone Yolande Nicholas DO Primary Care Pro vider Unavailable Anuj Priest DO Primary Care Provider [facility], Pcp Primary Care Provider Unavailabl e Reason for Visit * Reason Onset Date Comments Faxed Order 03/03/2020 Encounter Details Date Type Department Care Team Description 03/03/2020 Telephone Adult [address] [address] Yolande Nicholas DO Faxed Order Social History [...] on filedocumented in this encounter Care Teams Running Rigger Relationship Specialty Start Date End Date Yolande Nicholas DO PCP - General Internal Medicine 12/03/18 10/08/20 Anuj Priest DO PCP - General Internal Medicine 10/09/[address] [place] [address], Pcp PCP - General Internal Medicine 06/17/21 documented as of this encounter
--- OUTSIDE RECORDS SUMMARY | 2024-06-19 18:28 | XMS_ITS | Encounter Summary ---
Author Organization [employer] Address [address] [facility] 7 [place] [address] Care Team Providers Care Senior Clinical Research Scientist Name Role Phone Sesar Pereyra MD Primary Care Provider [phone] Encounter Details Date Type Department Care Team ([facility] Contact Info) Description 10/13/2022 Orders Only [facility] [address] [place] [address] Sesar Pereyra MD [address] [place] [address] Social History Tobacco Use Types Packs/Day Years [...] 10:30 AM EDT Office Visit [facility] [address] [place] [address] Sesar Pereyra MD [address] [place] [address] documented as of this encounter Visit Diagnoses Not on filedocumented in this encounter Care Teams Senior Clinical Research Scientist Relationship Specialty Start Date End Date Sesar Pereyra MD [address] [place] [address] PCP - General Internal Medicine 03/01/21 [facility] 03/22/24 documented as of this encounter
--- OUTSIDE RECORDS SUMMARY | 2024-06-19 18:28 | XMS_ITS | Encounter Summary ---
Author Organization [facility] [facility] Address [address] [place] [address] Care Team Providers Care Metal Fitter Name Role Phone Ghassan Burciaga MD Primary Care Provider Unavail able Pierre Arevalo MD Primary Care Provider Judy vailable Gerson Dawson MD Primary Care Provider Unavail able [facility], Pcp Primary Care Provider Unavailabl e Coleman Mccarthy MD Primary Care Provider Unavaila Ayo Demarco MD Primary Care Provider [phone] Annalee Jones MD Primary Care Provider Un available Pascual Nicholasabela DO Primary Care Pro vider Unavailable Anuj Priest DO Primary Care Provider Judy vailable [facility], Pcp Primary Care Provider Unavailabl e Encounter Details Date Type Department Care Team Description 11/03/2006 Hospital Medical Records [address] [place] [id number] Tyler Bloom MD Social History Tobacco Use [...] on filedocumented in this encounter Care Teams Metal Fitter Relationship Specialty Start Date End Date Ghassan Burciaga MD PCP - General 07/24/00 05/06/13 Pierre Arevalo MD PCP - General Internal Medicine 05/07/13 4 Gerson Dawson MD PCP - General Internal Medicine 01/30/14 03/20/14 [facility], Pcp PCP - General Internal Medicine 03/21/14 05/06/14 Coleman Mccarthy MD PCP - General Internal Medicine 05/07/14 07/18/16 Ayo Carpio MD [address] [place], [place] [id number] PCP - General Internal Medicine 07/19/16 01/05/17 Annalee Jones MD [address] [place], [place] [id number] PCP - General Internal Medicine 01/06/17 12/02/18 Yolande Nicholas, DO [address] [place] [address] PCP - General Internal Medicine 12/03/18 10/08/20 Anuj Priest, [address] [place] [address] PCP - General Internal Medicine 10/09/20 06/16/21 [facility], Pcp PCP - General Internal Medicine 06/17/21 documented as of this encounter
--- OUTSIDE RECORDS SUMMARY | 2024-06-19 18:28 | XMS_ITS | Encounter Summary ---
Author Organization [employer] Address [address] [facility] 7t [place] [address] Care Team Providers Care Assembler Installer Structures Name Role Phone Sesar Pereyra MD Primary Care Provider +1- [phone] Reason for Visit * Reason Onset Date Comments Medication Question 05/23/2024 Encounter Details Date Type Department Care Team ([facility] st Contact Info) Description 05/23/2024 Telephone [facility] [address] [place] [address] Sesar Pereyra MD [address] [place] [address] Medication Question Social History Tobacco Use Types [...] any questions you can contact L&C at [phone]. documented in this encounter Plan of Treatment Upcoming Encounters Date Type Department Care Team ([facility] st Contact Info) Description 09/11/2024 10:30 AM EDT Office Visit [facility] & PEDS [address] [place] [address] Sesar Pereyra MD [address] [place] [address] documented as of this encounter Visit Diagnoses Diagnosis Primary hypertension Unspecified essential hypertension Hypercholesterolemia Pure hypercholesterolemia documented in this encounter Additional Health Concerns Assessment Noted Time PHQ-9 Depression Total Score: 16 024 10:59 AM EDT documented as of this encounter Care Teams Assembler Installer Structures Relationship Specialty Start Date End Date Sesar Pereyra MD [address] [place] [address] PCP - General Internal Medicine 03/01/21 [facility] 03/22/24 documented as of this encounter
--- OUTSIDE RECORDS SUMMARY | 2024-06-19 18:28 | XMS_ITS | Encounter Summary ---
Author Organization [facility] Address [address] [place] [address] Care Team Providers Care Prison Psychiatrist Name Role Phone Yolande Nicholas DO Primary Care Pro vider Unavailable Anuj Priest DO Primary Care Provider [facility], Pcp Primary Care Provider Unavailabl e Reason for Visit * Reason Onset Date Comments Faxed Order 03/22/2020 Encounter Details Date Type Department Care Team Description 03/22/2020 Telephone Adult [address] [address] Yolande Nicholas DO Faxed Order Social History [...] review, sign, date, and fax back to [phone] * Telephone Encounter - Gerri Parra - 03/22/2020 12:47 PM EST [facility] IS FAXING ORDERS TO BE SIGN AND FAX BACK TO [phone]. documented in this encounter Plan of Treatment Not on file documented as of this encounter Visit Diagnoses Not on filedocumented in this encounter Care Teams Prison Psychiatrist Relationship Specialty Start Date End Date Yolande Nicholas DO PCP - General Internal Medicine 12/03/18 10/08/20 Anuj Priest DO PCP - General Internal Medicine 10/09/20 2 [facility], Pcp PCP - General Internal Medicine 06/17/21 documented as of this encounter
--- OUTSIDE RECORDS SUMMARY | 2024-06-19 18:28 | XMS_ITS | Encounter Summary ---
Author Organization [facility] Address [address] [place] [address] Care Team Providers Care Bulk Pigment Reducer Name Role Phone Yolande Nicholas DO Primary Care Pro vider Unavailable Anuj Priest DO Primary Care Provider [facility], Pcp Primary Care Provider Unavailabl e Reason for Visit * Reason Onset Date Comments Faxed Order 03/29/2020 Encounter Details Date Type Department Care Team Description 03/29/2020 Telephone Adult [address] [address] Yolande Nicholas DO Faxed Order Social History [...] Parra - 03/29/2020 2:14 PM EST [facility] IS FAXING ORDERS TO BE SIGN AND FAX BACK TO [phone]. documented in this encounter Plan of Treatment Not on file documented as of this encounter Visit Diagnoses Not on filedocumented in this encounter Care Teams Bulk Pigment Reducer Relationship Specialty Start Date End Date Yolande Nicholas DO PCP - General Internal Medicine 12/03/18 10/08/20 Anuj Priest DO PCP - General Internal Medicine 10/09/20 2 [facility], Pcp PCP - General Internal Medicine 06/17/21 documented as of this encounter
--- OUTSIDE RECORDS SUMMARY | 2024-06-19 18:28 | XMS_ITS | Encounter Summary ---
Author Organization [employer] Address [address] [facility] 7t [place] [address] Care Team Providers Care Lab Aid Name Role Phone Sesar Pereyra MD Primary Care Provider +1- [phone] Reason for Visit * Reason Comments Med Refill Encounter Details Date Type Department Care Team ([facility] st Contact Info) Description 10/30/2023 Refill [facility] MED & PEDS [address] [place], [place] [id number] Sesar Pereyra MD [address] [place] [address] PVD (peripheral vascular disease) (CMS/HCC); Longstanding persistent [...] Upcoming Encounters Date Type Department Care Team ([facility] st Contact Info) Description 09/11/2024 10:30 AM EDT Office Visit [facility] MED [facility] PEDS [address] [place] [address] Sesar Pereyra MD [address] [place] [address] documented as of this encounter Visit Diagnoses Diagnosis PVD (peripheral vascular disease) (CMS/HCC) Unspecified peripheral vascular disease Longstanding persistent atrial fibrillation (CMS/HCC) documented in this encounter Additional Health Concerns Assessment Noted Time PHQ-9 Depression Total Score: 16 024 10:59 AM EDT documented as of this encounter Care Teams Lab Aid Relationship Specialty Start Date End Date Sesar Pereyra MD [address] [place] [address] PCP - General Internal Medicine 03/01/21 [facility] 03/22/24 documented as of this encounter
--- OUTSIDE RECORDS SUMMARY | 2024-06-19 18:28 | XMS_ITS | Encounter Summary ---
Author Organization [employer] Address [address] [facility] 7t [place] [address] Care Team Providers Care Waste Collector Name Role Phone Sesar Pereyra MD Primary Care Provider +1- [phone] Reason for Visit * Reason Onset Date Comments Lab Orders 05/30/2024 Referral 05/30/2024 Encounter Details Date Type Department Care Team (Late st Contact Info) Description 05/30/2024 Telephone [facility] MEDICINE [address] [place] [address] Sesar Pereyra MD [address] [place] [address] Lab Orders; Referral Social History Tobacco Use [...] Description 09/11/2024 10:30 AM EDT Office Visit [facility] MED [facility] PEDS [address] [place] [address] Sesar Pereyra MD [address] [place] [address] documented as of this encounter Visit Diagnoses Not on filedocumented in this encounter Additional Health Concerns Assessment Noted Time PHQ-9 Depression Total Score: 16 024 10:59 AM EDT documented as of this encounter Care Teams Waste Collector Relationship Specialty Start Date End Date Sesar Pereyra MD [address] [place] [address] PCP - General Internal Medicine 03/01/21 [facility] 03/22/24 documented as of this encounter
--- OUTSIDE RECORDS SUMMARY | 2024-06-19 18:28 | XMS_ITS | Clinical Summary ---
Author Organization Unknown Care Team Providers Care Refrigeration Technician Name Role Phone MARCO RAMIREZ, POOJA Unavailable Unavailabl e JIMENEZ PT, COURTNEY Unavailable Unavailable SPAFFORD OT, DAGO Unavailable Unavailable CONDINO FERNY/CALZADA, ANGUS Unavailable Unav ailable FECTEAU LICENSED WEIGHER, JANETT Unavailable Unavailable LESLYE RN, DAGOBERTO Unavailable Unavailab abraham CARRION RESIN PAINTER, ANTONIO Unavailable Unavailable JOSE RAFAEL SKAGGSN, YORDAN Unavailable Unavail able Payers Payer Name Policy Type Policy Number Effective Date Expira tion Date [facility] [id number] Problems Condition Name Condition Details Condition Category [...] 2023-05 00:00: 00 ATHSCL HEART DISEASE OF [place] CORONARY ARTERY W/O ANG PCTRS Active 05-01 [...] 2023-05 00:00: 00 05-16 23:59 :00 No [id number] PAIN 15 mg EVERY 6 HOURS NEEDED 15 mg EVERY 6 HOURS NEEDED (route: oral) Med Classific ation: Analgesic , Anti-infl ammatory or Antipyret ic clonazepam 0.5 mg tablet 2023-05 00:00: 00 Yes [id number] ANXIETY 0.5 mg 2 TIMES DAILY 0.5 mg 2 TIMES DAILY (route: oral) Med Classific ation: Central Nervous System Agents lisinopril 40 mg tablet 2023-05 00:00: 00 03-21 23:59 :00 No [id number] CAD 40 mg DAILY 40 mg DAILY (route: oral) Med Classific ation: Cardiovas cular Therapy Agents atorvastati n 80 mg tablet 2023-05 00:00: 00 Yes [id number] HYPERTENSIO N 80 mg DAILY 80 mg DAILY (route: oral) Med Classific ation: Cardiovas cular Therapy Agents cilostazol 50 mg tablet 2023-05 00:00: 00 Yes [id number] HYPERTENSIO N 50 mg 2 TIMES DAILY 50 mg 2 TIMES DAILY (route: oral) Med Classific ation: Hematolog ical Agents clopidogrel 75 mg tablet 2023-05 00:00: 00 03-21 23:59 :00 No [id number] CORONARY ARTERY DISEASE 75 mg DAILY 75 mg DAILY (route: oral) Med Classific ation: Hematolog ical Agents Eliquis 5 mg tablet 2023-05 00:00: 00 Yes [id number] ANTI ARRHYTHMIC 5 mg 2 TIMES DAILY 5 mg 2 TIMES DAILY (route: oral) Med Classific ation: Hematolog ical Agents furosemide 40 mg tablet 2023-05 00:00: 00 03-21 23:59 :00 No [id number] BPH 40 mg DAILY 40 mg DAILY (route: oral) Alternate Route: INTRA-MUS CULAR. Med Classific ation: Cardiovas cular Therapy Agents metoprolol tartrate 50 mg tablet 2023-05 00:00: 00 03-22 23:59 :00 No [id number] CAD 50 mg DAILY 50 mg DAILY (route: oral) Med Classific ation: Cardiovas cular Therapy Agents quetiapine 25 mg tablet 2023-05 00:00: 00 Yes [id number] MOOD STABILIZER 25 mg 2 TIMES DAILY 25 mg 2 TIMES DAILY (route: oral) Med Classific ation: Central Nervous System Agents sertraline 50 mg tablet 2023-05 00:00: 00 Yes [id number] MOOD STABILIZER 50 mg DAILY 50 mg DAILY (route: oral) Med Classific ation: Central Nervous System Agents tamsulosin 0.4 mg capsule 2023-05 00:00: 00 Yes [id number] BPH 0.4 mg DAILY 0.4 mg DAILY (route: oral) Med Classific ation: Genitouri nary Therapy docusate sodium 100 mg tablet 2023-05 00:00: 00 Yes [id number] CONSTIPATIO N 100 mg DAILY 100 mg DAILY (route: oral) Med Classific ation: Gastroint estinal Therapy Agents gabapentin 100 mg capsule 2023-05 00:00: 00 Yes [id number] PAIN 1-3 capsule BEDTIME 1-3 capsule BEDTIME (route: oral) Med Classific ation: Central Nervous System Agents metoprolol tartrate 25 mg tablet 2023-05 00:00: 00 03-27 16:09 :43.1 53 No [id number] HYPERTENSIO N 25 mg 2 TIMES DAILY 25 mg 2 TIMES DAILY (route: oral) Med Classific ation: Cardiovas cular Therapy Agents Multaq 400 mg tablet 2023-05 00:00: 00 Yes [id number] ANTIARRHYTH MICHAEL 400 mg 2 TIMES DAILY 400 mg 2 TIMES DAILY (route: oral) Med Classific ation: Cardiovas cular Therapy Agents furosemide 40 mg tablet 2023-05 00:00: 00 Yes [id number] edema 1 tablet DAILY 1 tablet DAILY (route: oral) Med Classific ation: Cardiovas cular Therapy Agents dextroamphe tamine-amph etamine 7.5 mg tablet 2023-05 00:00: 00 Yes [id number] attention 1 tablet DAILY 1 tablet DAILY (route: oral) Med Classific ation: Central Nervous System Agents metoprolol tartrate 25 mg tablet 2023-05 00:00: 00 Yes [id number] heart rate 0.5 tablet 2 TIMES DAILY 0.5 tablet 2 TIMES DAILY (route: oral) Med Classific ation: Cardiovas cular Therapy Agents cephalexin 500 mg capsule 2023-05 00:00: 00 04-10 23:59 :00 No [id number] CELLULITIS LLL 500 mg 4 TIMES DAILY 500 mg 4 TIMES DAILY (route: oral) Med Classific ation: Anti-Infe ctive Agents hydralazine 25 mg tablet 2023-05 00:00: 00 Yes [id number] HTN 25 mg 2 TIMES DAILY 25 [...] CONSULTING PHYSICIANS. RN TO OBSERVE AND ASSESS, TIN FLOPPER/STAFFING DIRECTOR TO OBSERVE FOR RISK FOR FALLS AND INSTRUCT IN FALL PREVENTION, HOME SAFETY, MEDICATION MANAGEMENT, INFECTION PREVENTION, AND NUTRITION MANAGEMENT. RN/TIN FLOPPER/STAFFING DIRECTOR NURSE MAY PERFORM O2 SATURATION LEVEL ON ADMISSION AND PRN FOR RN TO ASSESS/TIN FLOPPER TO OBSERVE PATIENT, WITH NOTIFICATION TO THE PHYSICIAN IF SATURATION IS 90% IN THE ABSENCE OF MORE SPECIFIC PARAMETERS FROM THE PHYSICIAN. AGENCY MAY PERFORM A RESUMPTION OF CARE VISIT FOLLOWING ANY HOSPITAL ADMISSION. RN/TIN FLOPPER/STAFFING DIRECTOR TO MONITOR CO-MORBID CONDITIONS LISTED ON THE PLAN OF CARE AND ANY NEW CONDITIONS THAT PRESENT THEMSELVES DURING THIS EPISODE TO IDENTIFY CHANGES AND INTERVENE TO MINIMIZE COMPLICATIONS. [code = RN TO OBSERVE, ASSESS, EVALUATE, AND DEVELOP AN INDIVIDUALIZED PLAN OF CARE. AGENCY MAY ACCEPT ORDERS FROM CONSULTING PHYSICIANS. RN TO OBSERVE AND ASSESS, TIN FLOPPER/STAFFING DIRECTOR TO OBSERVE FOR RISK FOR FALLS AND INSTRUCT IN FALL PREVENTION, HOME SAFETY, MEDICATION MANAGEMENT, INFECTION PREVENTION, AND NUTRITION MANAGEMENT. RN/TIN FLOPPER/STAFFING DIRECTOR NURSE MAY PERFORM O2 SATURATION LEVEL ON ADMISSION AND PRN FOR RN TO ASSESS/TIN FLOPPER TO OBSERVE PATIENT, WITH NOTIFICATION TO THE PHYSICIAN IF SATURATION IS 90% IN THE ABSENCE OF MORE SPECIFIC PARAMETERS FROM THE PHYSICIAN. AGENCY MAY PERFORM A RESUMPTION OF CARE VISIT FOLLOWING ANY HOSPITAL ADMISSION. RN/TIN FLOPPER/STAFFING DIRECTOR TO MONITOR CO-MORBID CONDITIONS LISTED ON THE PLAN OF CARE AND ANY NEW CONDITIONS THAT PRESENT THEMSELVES DURING THIS EPISODE TO IDENTIFY CHANGES AND INTERVENE TO MINIMIZE COMPLICATIONS.] Future Scheduled Test MEDICATION MANAGEMENT; RN/TIN FLOPPER/STAFFING DIRECTOR TO REVIEW MEDICATIONS FOR INTERACTIONS, EFFECTIVENESS OF DRUG THERAPY, AND SIGNS/SYMPTOMS OF ADVERSE REACTIONS. MAY INSTRUCT AND REINFORCE MEDICATION TEACHING RELATED TO THE USE OF MEDICATIONS, DOSAGE, FREQUENCY, PURPOSE, SIDE EFFECTS, AND TO REPORT COMPLICATIONS. HELP SET UP BUBBLE PACKS [code = MEDICATION MANAGEMENT; RN/TIN FLOPPER/STAFFING DIRECTOR TO REVIEW MEDICATIONS FOR INTERACTIONS, EFFECTIVENESS OF DRUG THERAPY, AND SIGNS/SYMPTOMS OF ADVERSE REACTIONS. MAY INSTRUCT AND REINFORCE MEDICATION TEACHING RELATED TO THE USE OF MEDICATIONS, DOSAGE, FREQUENCY, PURPOSE, SIDE EFFECTS, AND TO REPORT COMPLICATIONS. HELP SET UP BUBBLE PACKS] Future Scheduled Test RISK FOR H OSPITALIZATION; RN TO ASSESS/TEACH, STAFFING DIRECTOR/TIN FLOPPER TO OBSERVE/TEACH PATIENT/CAREGIVER ON RISK FOR HOSPITALIZATION/EMERGENCY ROOM VISITS, TEACH SIGNS AND SYMPTOMS THAT PUT PATIENT AT RISK, WHEN TO NOTIFY NURSE/PHYSICIAN OF COMPLICATIONS/DECLINE, AND WHEN TO CALL 911. [code = RISK FOR HOSPITALIZATION; RN TO ASSESS/TEACH, STAFFING DIRECTOR/TIN FLOPPER TO OBSERVE/TEACH PATIENT/CAREGIVER ON RISK FOR HOSPITALIZATION/EMERGENCY ROOM VISITS, TEACH SIGNS AND SYMPTOMS THAT PUT PATIENT AT RISK, WHEN TO NOTIFY NURSE/PHYSICIAN OF COMPLICATIONS/DECLINE, AND WHEN TO CALL 911.] Future Scheduled Test CARDIOVASC ULAR SYSTEM; RN TO ASSESS/TEACH, TIN FLOPPER/STAFFING DIRECTOR TO OBSERVE/TEACH RELATED TO ALTERED CARDIOVASCULAR STATUS TO MINIMIZE COMPLICATIONS AND REDUCE HOSPITALIZATION. [code = CARDIOVASCULAR SYSTEM; RN TO ASSESS/TEACH, TIN FLOPPER/STAFFING DIRECTOR TO OBSERVE/TEACH RELATED TO ALTERED CARDIOVASCULAR STATUS TO MINIMIZE COMPLICATIONS AND REDUCE HOSPITALIZATION.] Future Scheduled Test HYPERTENSI ON MANAGEMENT; RN TO ASSESS AND TEACH, TIN FLOPPER/STAFFING DIRECTOR TO OBSERVE AND TEACH WARNING SIGNS AND SYMPTOMS TO AVOID HOSPITALIZATION. [code = HYPERTENSION MANAGEMENT; RN TO ASSESS AND TEACH, TIN FLOPPER/STAFFING DIRECTOR TO OBSERVE AND TEACH WARNING SIGNS AND SYMPTOMS TO AVOID HOSPITALIZATION.] Future Scheduled Test ARRHYTHMIA MANAGEMENT; RN TO ASSESS AND TEACH, TIN FLOPPER/STAFFING DIRECTOR TO OBSERVE AND TEACH WARNING SIGNS AND SYMPTOMS TO AVOID HOSPITALIZATION. [code = ARRHYTHMIA MANAGEMENT; RN TO ASSESS AND TEACH, TIN FLOPPER/STAFFING DIRECTOR TO OBSERVE AND TEACH WARNING SIGNS AND SYMPTOMS TO AVOID HOSPITALIZATION.] Future Scheduled Test SKIN INTEG RITY RN TO ASSESS AND TEACH, TIN FLOPPER/STAFFING DIRECTOR TO OBSERVE AND TEACH INTEGUMENTARY STATUS TO IDENTIFY CHANGES AND INTERVENE TO MINIMIZE COMPLICATIONS. PROVIDE SKILLED TEACHING OF GENERAL WOUND AND SKIN CARE AND PREVENTION RELATED TO POTENTIAL FOR ALTERED SKIN INTEGRITY [code = SKIN INTEGRITY RN TO ASSESS AND TEACH, TIN FLOPPER/STAFFING DIRECTOR TO OBSERVE AND TEACH INTEGUMENTARY STATUS TO IDENTIFY CHANGES AND INTERVENE TO MINIMIZE COMPLICATIONS. PROVIDE SKILLED TEACHING OF GENERAL WOUND AND SKIN CARE AND PREVENTION RELATED TO POTENTIAL FOR ALTERED SKIN INTEGRITY ] Future Scheduled Test PAIN MANAG EMENT; RN TO ASSESS AND TEACH, STAFFING DIRECTOR/TIN FLOPPER TO OBSERVE AND TEACH AND PROVIDE EDUCATION ON PAIN MANAGEMENT TECHNIQUES. [code = PAIN MANAGEMENT; RN TO ASSESS AND TEACH, STAFFING DIRECTOR/TIN FLOPPER TO OBSERVE AND TEACH AND PROVIDE EDUCATION ON PAIN MANAGEMENT TECHNIQUES.] Future Scheduled Test FALL REDUC TION MANAGEMENT; RN TO ASSESS AND OBSERVE, TIN FLOPPER/STAFFING DIRECTOR TO OBSERVE FALL RISK FACTORS AND EDUCATE PATIENT/CAREGIVER ON STRATEGIES TO MINIMIZE THE RISK OF FALLING. [code = FALL REDUCTION MANAGEMENT; RN TO ASSESS AND OBSERVE, TIN FLOPPER/STAFFING DIRECTOR TO OBSERVE FALL RISK FACTORS AND EDUCATE PATIENT/CAREGIVER ON STRATEGIES TO MINIMIZE THE RISK OF FALLING.] Future Scheduled Test RESPIRATOR Y SYSTEM MANAGEMENT; RN TO ASSESS AND TEACH, TIN FLOPPER/STAFFING DIRECTOR TO OBSERVE AND TEACH RELATED TO ALTERED RESPIRATORY STATUS TO MINIMIZE COMPLICATIONS AND REDUCE HOSPITALIZATION. [code = RESPIRATORY SYSTEM MANAGEMENT; RN TO ASSESS AND TEACH, TIN FLOPPER/STAFFING DIRECTOR TO OBSERVE AND TEACH RELATED TO ALTERED [...] 2024-07-19 00:00:00 Outpatient JOSE MARIARTIFIC DAGOBERTO [facility] [id number]
--- OUTSIDE RECORDS SUMMARY | 2024-06-19 18:28 | XMS_ITS | Encounter Summary ---
Author Organization [facility] Address [address] [place] [address] Care Team Providers Care Disc Inspector Name Role Phone Yolande Nicholas DO Primary Care Pro vider Unavailable Anuj Priest DO Primary Care Provider [facility], Pcp Primary Care Provider Unavailabl e Reason for Visit * Reason Onset Date Comments Provider Call Back 04/29/2019 Encounter Details Date Type Department Care Team Description 04/29/2019 Telephone Adult [address] [address] Yolande Nicholas DO Provider Call Back Social [...] EST Im not aware of any in [place] * Telephone Encounter - Minerva Kan R.N. - 04/29/2019 3:[address] Yolande Gomez Are you aware of a detox in [facility] ? * Telephone Encounter - Lonny Lazarus - 04/29/2019 1:15 PM EST Patient relapsed for alcohol abuse 3 days ago and requests to speak to Dr. Yolande Gomez or her team. Patient states that he does want to get better. The patient says Dr. Alvarez mentioned a rehab facility in [place] last time, but he cannot remember the address, phone number, or name of the facility. documented in this encounter Plan of Treatment Not on file documented as of this encounter Visit Diagnoses Not on filedocumented in this encounter Care Teams Disc Inspector Relationship Specialty Start Date End Date Yolande Nicholas DO PCP - General Internal Medicine 12/03/18 10/08/20 Anuj Priest DO PCP - General Internal Medicine 10/09/[address] [place] [address], Pcp PCP - General Internal Medicine 06/17/21 documented as of this encounter
--- OUTSIDE RECORDS SUMMARY | 2024-06-19 18:28 | XMS_ITS | Encounter Summary ---
Author Organization [employer] Address [address] [place] [address] Care Team Providers Care Internet Sourcer Name Role Phone Sesar Pereyra MD Primary Care Provider +[phone] Reason for Visit * Reason Comments Med Refill Encounter Details Date Type Department Care Team ([facility] Contact Info) Description 10/26/2022 Refill [facility] MED & PEDS [address] [place] [address] Sesar Pererya MD [address] [place] [address] Social History Tobacco Use Types Packs/Day Years [...] 10:30 AM EDT Office Visit [facility] MED & PEDS [address] [place] [address] Sesar Pereyra MD [address] [place] [address] documented as of this encounter Visit Diagnoses Not on filedocumented in this encounter Care Teams Internet Sourcer Relationship Specialty Start Date End Date Sesar Pereyra MD [address] [place] [address] PCP - General Internal Medicine 03/01/21 [facility] 03/22/24 documented as of this encounter
--- OUTSIDE RECORDS SUMMARY | 2024-06-19 18:28 | XMS_ITS | Encounter Summary ---
Author Organization [employer] Address [address] [facility] 7t [place] [address] Care Team Providers Care Assistant Football Coach Name Role Phone Sesar Pereyra MD Primary Care Provider +1- [phone] Reason for Visit * Reason Onset Date Comments FYI 10/07/2022 Encounter Details Date Type Department Care Team ([facility] st Contact Info) Description 10/07/2022 Telephone [facility] MEDICINE [address] [place] [address] Sesar Pereyra MD [address] [place] [address] FYI Social History Tobacco Use Types Packs/Day [...] any questions or concerns please contact at [phone] documented in this encounter Plan of Treatment Upcoming Encounters Date Type Department Care Team ([facility] st Contact Info) Description 09/11/2024 10:30 AM EDT Office Visit [facility] MED & PEDS [address] [place] [address] Sesar Pereyra MD [address] [place], [place] [phone] documented as of this encounter Visit Diagnoses Not on filedocumented in this encounter Care Teams Assistant Football Coach Relationship Specialty Start Date End Date Sesar Pereyra MD [address] [place] [address] PCP - General Internal Medicine 03/01/21 [facility] 03/22/24 documented as of this encounter
--- OUTSIDE RECORDS SUMMARY | 2024-06-19 18:28 | XMS_ITS | Encounter Summary ---
Author Organization [facility] Address [address] [place] [address] Care Team Providers Care Nail Kegger Name Role Phone Yolande Nicholas DO Primary Care Pro vider Unavailable Anuj Priest DO Primary Care Provider [facility], Pcp Primary Care Provider Unavailabl e Reason for Visit * Reason Onset Date Comments Faxed Order 06/17/2020 Encounter Details Date Type Department Care Team Description 06/17/2020 Telephone Adult [address] [address] Yolande Nicholas DO Faxed Order Social History [...] - 06/17/2020 8:44 AM EST Orders from [facility] to be signed and faxed back to [phone] . documented in this encounter Plan of Treatment Not on file documented as of this encounter Visit Diagnoses Not on filedocumented in this encounter Care Teams Nail Kegger Relationship Specialty Start Date End Date Yolande Nicholas DO PCP - General Internal Medicine 12/03/18 10/08/20 Anuj Priest DO PCP - General Internal Medicine 10/09/20 [facility], Pcp PCP - General Internal Medicine 06/17/21 documented as of this encounter
--- OUTSIDE RECORDS SUMMARY | 2024-06-19 18:28 | XMS_ITS | Encounter Summary ---
Author Organization [employer] Address [address] [place] [address] Care Team Providers Care Milk Drying Machine Operator Name Role Phone Sesar Pereyra MD Primary Care Provider +1- [phone] Reason for Visit * Reason Onset Date Comments Med Refill 05/27/2024 Encounter Details Date Type Department Care Team ([facility] st Contact Info) Description 05/27/2024 Refill [facility] MED & PEDS [address] [place] [address] Sesar Pereyra MD [address] [place] [address] Social History Tobacco Use Types Packs/Day Years [...] 7.5 MG tablet To be sent to: [facility] - [place], [place] - [address] [place] [address] STEET documented in this encounter Plan of Treatment Upcoming Encounters Date Type Department Care Team (Late st Contact Info) Description 09/11/2024 10:30 AM EDT Office Visit [facility] MED [facility] PEDS [address] [place] [address] Sesar Pereyra MD [address] [place] [address] documented as of this encounter Visit Diagnoses Not on filedocumented in this encounter Additional Health Concerns Assessment Noted Time PHQ-9 Depression Total Score: 16 024 10:59 AM EDT documented as of this encounter Care Teams Milk Drying Machine Operator Relationship Specialty Start Date End Date Sesar Pereyra MD [address] [place] [address] PCP - General Internal Medicine 03/01/[address] [facility] 03/22/24 documented as of this encounter
--- OUTSIDE RECORDS SUMMARY | 2024-06-19 18:28 | XMS_ITS | Encounter Summary ---
Author Organization [facility] Address [address] [place] [address] Care Team Providers Care Link Wire Fabric Machine Operator Name Role Phone Yolande Nicholas DO Primary Care Pro vider Unavailable Anuj Priest DO Primary Care Provider [facility], Pcp Primary Care Provider Unavailabl e Reason for Visit * Reason Onset Date Comments VNA Call 02/25/2020 Encounter Details Date Type Department Care Team Description 02/25/2020 Telephone Adult Medicine [address] [address] Yolande Nicholas DO VNA Call Social History [...] on filedocumented in this encounter Care Teams Link Wire Fabric Machine Operator Relationship Specialty Start Date End Date Yolande Nicholas DO PCP - General Internal Medicine 12/03/18 10/08/20 Anuj Preist DO PCP - General Internal Medicine 10/09/[address] [place] [address], Pcp PCP - General Internal Medicine 06/17/21 documented as of this encounter
--- OUTSIDE RECORDS SUMMARY | 2024-06-19 18:28 | XMS_ITS | Encounter Summary ---
Author Organization [employer] Address [address] [facility] [place] [address] Care Team Providers Care Screw Machine Hand Name Role Phone Sesar Pereyra MD Primary Care Provider +1- [phone] Reason for Referral * Consultation (Routine) - Closed Specialty Diagnoses / Procedures Referred By Contac t Referred To Contact Geriatric Medicine Diagnoses Memory disturbance Sesar Pereyra MD [address] [place] [address] Phone: tel: fax: [facility] [address] [place] [address] Phone: tel: fax: Referral ID Status Reason Start Date Expiration Date V isits Requested Visits Authorized [id number] Closed Specialty Services Required 01/11/2024 01/10/2025 1 1 Encounter Details Date Type Department Care Team (Late st Contact Info) Description 01/11/2024 Orders Only [facility] MED & PEDS [address] [place], [place] [phone] Sesar Pereyra MD [address] [place], [place] [phone] Memory disturbance (Primary Dx) Social History Tobacco Use Types Packs/Day Years Used Date Smoking Tobacco: Former Cigarettes Smokeless Tobacco: Never Comments:Quit 35 years ago. Depression Answer Date Recorded Patient Health Questionnaire-9 Score 16 07/19/2023 Patient Health Questionnaire-9 Score 16 07/19/2023 Last PHQ-9: Questionnaire Data Not on file 0 07/19/2023 Housing Stability Answer Date Recorded What is your housing situation today? I have yenyn raman 07/12/[address] you [...] [facility] [address] [place] [address] Sesar Pereyra MD [address] [place] [address] Scheduled Referrals Name Type Priority Associated Diagnoses Orde r Schedule Referral to Geriatrics Outpatient Referral Routine Memory disturbance Expected: 01/11/2024 (Approximate), Expires: 01/10/2025 documented as of this encounter Visit Diagnoses Diagnosis Memory disturbance- Primary Memory loss documented in this encounter Additional Health Concerns Assessment Noted Time PHQ-9 Depression Total Score: 16 024 10:59 AM EDT documented as of this encounter Care Teams Screw Machine Hand Relationship Specialty Start Date End Date Sesar Pereyra MD [address] [place] [address] PCP - General Internal Medicine [facility] documented as of this encounter
--- OUTSIDE RECORDS SUMMARY | 2024-06-19 18:28 | XMS_ITS | Encounter Summary ---
Author Organization [employer] Address 75 [facility] 7t [place] [address] Care Team Providers Care Education Officer Name Role Phone Sesar Pereyra MD Primary Care Provider [phone] Reason for Visit * Reason Comments Med Refill Encounter Details Date Type Department Care Team ([facility] Contact Info) Description 10/19/2022 Refill [facility] PED[facility] [address] [place] [address] Sesar Pereyra MD [address] [place] [address] Social History Tobacco Use Types Packs/Day Years [...] Upcoming Encounters Date Type Department Care Team ([facility] Contact Info) Description 09/11/2024 10:30 AM EDT Office Visit [facility] [address] [place] [address] Sesar Pereyra MD [address] [place] [address] documented as of this encounter Visit Diagnoses Not on filedocumented in this encounter Care Teams Education Officer Relationship Specialty Start Date End Date Sesar Pereyra MD [address] [place] [address] PCP - General Internal Medicine 03/01/21 [facility] 03/22/24 documented as of this encounter
--- OUTSIDE RECORDS SUMMARY | 2024-06-19 18:28 | XMS_ITS | Encounter Summary ---
Author Organization [facility] Address [address] [place] [address] Care Team Providers Care Cigar Packer And Picker Name Role Phone Yolande Nicholas DO Primary Care Pro vider Unavailable Anuj Priest DO Primary Care Provider [facility], Pcp Primary [facility] Encounter Details Date Type Department Care Team Description 04/04/2020 Pt. Non Urgent Medic al Question Adult Medicine [address] [address] Yolande Nicholas DO Social History Tobacco Use [...] 04/04/2020 12:08 PM EST Subject: erictile disfuction [id number] 30ct. documented in this encounter Plan of Treatment Not on file documented as of this encounter Visit Diagnoses Not on filedocumented in this encounter Care Teams Cigar Packer And Picker Relationship Specialty Start Date End Date Yolande Nicholas DO PCP - General Internal Medicine 12/03/18 10/08/20 Anuj Priest DO PCP - General Internal Medicine 10/09/20 2 [facility], Pcp PCP - General Internal Medicine 06/17/21 documented as of this encounter
--- OUTSIDE RECORDS SUMMARY | 2024-06-19 18:28 | XMS_ITS | Encounter Summary ---
Author Organization [employer] Address 75 [facility] 7t [place] [address] Care Team Providers Care Equine Manager Name Role Phone Sesar Pereyra MD Primary Care Provider +1- [phone] Encounter Details Date Type Department Care Team (Late st Contact Info) Description 05/30/2024 Telephone [facility] MEDICINE [address] [place] [address] Sesar Pereyra MD [address] [place] [address] Social History Tobacco Use Types Packs/Day Years [...] AM EDT Office Visit [facility] MED & PEDS [address] [place] [address] Sesar Pereyra MD [address] [place] [address] documented as of this encounter Visit Diagnoses Not on filedocumented in this encounter Additional Health Concerns Assessment Noted Time PHQ-9 Depression Total Score: 16 024 10:59 AM EDT documented as of this encounter Care Teams Equine Manager Relationship Specialty Start Date End Date Sesar Pereyra MD [address] [place] [address] PCP - General Internal Medicine 03/01/21 [facility] documented as of this encounter
--- OUTSIDE RECORDS SUMMARY | 2024-06-19 18:28 | XMS_ITS | Encounter Summary ---
Author Organization [employer] Address 75 [facility] 7t [place] [address] Care Team Providers Care Anaesthesiologist Name Role Phone Sesar Pereyra MD Primary Care Provider +1- [phone] Reason for Visit * Reason Onset Date Comments Referral 01/02/2024 Encounter Details Date Type Department Care Team ([facility] st Contact Info) Description 01/02/2024 Telephone [facility] MEDICINE [address] [place] [address] Sesar Pereyra MD [address] [place] [address] Referral Social History Tobacco Use Types Packs/Day [...] - 01/02/2024 10:48 AM EDT Tc from [place] the patients EC requesting a referral for a gerontologist and would like to be sent to at [facility] in [place] documented in this encounter Plan of Treatment Upcoming Encounters Date Type Department Care Team (Late st Contact Info) Description 09/11/2024 10:30 AM EDT Office Visit [facility] MED & PEDS [address] [place] [address] Sesar Pereyra MD [address] [place] [address] documented as of this encounter Visit Diagnoses Not on filedocumented in this encounter Additional Health Concerns Assessment Noted Time PHQ-9 Depression Total Score: 16 024 10:59 AM EDT documented as of this encounter Care Teams Anaesthesiologist Relationship Specialty Start Date End Date Sesar Pereyra MD [address] [place], [place] [address] [address] PCP - General Internal Medicine 03/01/21 [facility] 03/22/24 documented as of this encounter
--- OUTSIDE RECORDS SUMMARY | 2024-06-19 18:28 | XMS_ITS | Encounter Summary ---
Author Organization [facility] Address 75 [facility] 7t [place] [address] Care Team Providers Care Home Appliance Installer Name Role Phone Sesar Pereyra MD Primary Care Provider [phone]- [phone] Encounter Details Date Type Department Care Team ([facility] st Contact Info) Description 11/01/2023 Orders Only [facility] CH[facility] MED & PEDS [address] [place], [place] [phone] Sesar Pereyra MD [address] [place] [address] Social History Tobacco Use Types Packs/Day Years [...] Office Visit [facility] [address] [place] [address] Sesar Pereyra MD [address] [place] [address] documented as of this encounter Visit Diagnoses Not on filedocumented in this encounter Additional Health Concerns Assessment Noted Time PHQ-9 Depression Total Score: 16 024 10:59 AM EDT documented as of this encounter Care Teams Home Appliance Installer Relationship Specialty Start Date End Date Sesar Pereyra MD [address] [place] [address] PCP - General Internal Medicine 03/01/21 [facility] documented as of this encounter
--- OUTSIDE RECORDS SUMMARY | 2024-06-19 18:28 | XMS_ITS | Encounter Summary ---
Author Organization [facility] Address [address] [place] [address] Care Team Providers Care Wood Finisher Apprentice Name Role Phone Yolande Nicholas DO Primary Care Pro vider Unavailable Anuj Priest DO Primary Care Provider [facility], Pcp Primary Care Provider Unavailabl e Reason for Visit * Reason Onset Date Comments Mychart Rx Refill 02/15/2019 Encounter Details Date Type Department Care Team Description 02/15/2019 Refill Adult Medicine [facility] [address] [place] [address] [facility] [address] [place] [address] Mychart Rx Refill Social History Tobacco Use [...] 20 MG tablet [MELITON Lombardo] Preferred pharmacy: [facility] [address] [place] AT Comment: Need to have a refill documented in this encounter Plan of Treatment Not on file documented as of this encounter Visit Diagnoses Not on filedocumented in this encounter Care Teams Wood Finisher Apprentice Relationship Specialty Start Date End Date Yolande Nicholas DO PCP - General Internal Medicine 12/03/18 10/08/20 Anuj Priest DO PCP - General Internal Medicine 10/09/20 2 [facility], Pcp PCP - General Internal Medicine 06/17/21 documented as of this encounter
--- OUTSIDE RECORDS SUMMARY | 2024-06-19 18:28 | XMS_ITS | Encounter Summary ---
Author Organization [facility] [employer] [facility] Address [address] [place] [address] Care Team Providers Care Greenskeeper Supervisor Name Role Phone Yolande Nicholas DO Primary Care Pro vider Unavailable Anuj Priest DO Primary Care Provider [facility], Pcp Primary Care Provider Unavailabl e Reason for Visit * Reason Onset Date Comments Home Care Associate Feedback 02/18/[address] Encounter Details Date Type Department Care Team Description 02/18/2019 Telephone Adult [address] [address] Yolande Nicholas DO Home Care Associate Feedback (Low Dose CT) Social History Tobacco [...] on filedocumented in this encounter Care Teams Greenskeeper Supervisor Relationship Specialty Start Date End Date Yolande Nicholas DO PCP - General Internal Medicine 12/03/18 10/08/20 Anuj Priest DO PCP - General Internal Medicine 10/09/20 [facility], Pcp PCP - General Internal Medicine 06/17/21 documented as of this encounter
--- OUTSIDE RECORDS SUMMARY | 2024-06-19 18:28 | XMS_ITS | Encounter Summary ---
Author Organization [employer] [facility] Address [address] [place] [address] Care Team Providers Care Trading Assistant Name Role Phone Yolande Nicholas DO Primary Care Pro vider Unavailable Anuj Priest DO Primary Care Provider [facility], Pcp Primary Care Provider Unavailabl e Encounter Details Date Type Department Care Team Description 03/14/2019 Release of Information Medical Records [address] [place] [address] Abstract, Provider Social History Tobacco Use Types [...] on filedocumented in this encounter Care Teams Trading Assistant Relationship Specialty Start Date End Date Yolande Nicholas DO PCP - General Internal Medicine 12/03/18 10/08/20 Anuj Priest DO PCP - General Internal Medicine 10/09/20 2 [facility], Pcp PCP - General Internal Medicine 06/17/21 documented as of this encounter
--- OUTSIDE RECORDS SUMMARY | 2024-06-19 18:28 | XMS_ITS | Encounter Summary ---
Author Organization [employer] Address 75 [facility] 7t [place] [address] Care Team Providers Care Warp Trucker Name Role Phone Sesar Pereyra MD Primary Care Provider +1- [phone] Reason for Visit * Reason Onset Date Comments Lab Orders 05/04/2022 Encounter Details Date Type Department Care Team ([facility] st Contact Info) Description 05/04/2022 Telephone [facility] MEDICINE [address] [place] [address] Sesar Pereyra MD [address] [place] [address] Lab Orders Social History Tobacco Use Types [...] pt requesting status n lab referral [facility] Please contact pt at [phone] * Telephone Encounter - Jacquelyn Abel - 05/04/2022 8:11 AM EST Tc from pt requesting a status update on lab orders. Please contact at [phone] documented in this encounter Plan of Treatment Upcoming Encounters Date Type Department Care Team (Late st Contact Info) Description 09/11/2024 10:30 AM EDT Office Visit [facility] CH[facility] MED & PEDS [address] [place] [address] Sesar Pereyra MD [address] [place] [address] Scheduled Orders Name Type Priority Associated Diagnoses Orde r Schedule Basic Metabolic Panel Lab Routine Essential hypertension Expected: 05/05/2022 (Approximate), Expires: 05/05/2023 documented as of this encounter Visit Diagnoses Diagnosis Essential hypertension- Primary Unspecified essential hypertension documented in this encounter Care Teams Warp Trucker Relationship Specialty Start Date End Date Sesar Pereyra MD [address] [place] [address] PCP - General Internal Medicine 03/01/21 [facility] 03/22/24 documented as of this encounter
--- OUTSIDE RECORDS SUMMARY | 2024-06-19 18:28 | XMS_ITS | Encounter Summary ---
Author [facility] Address [address] [place] [address] Care Team Providers Care Corporate Traffic Manager Name Role Phone Yolande Nicholas DO Primary Care Pro vider Unavailable Anuj Priest DO Primary Care Provider [facility], Pcp Primary [facility] Encounter Details Date Type Department Care Team Description 05/20/2019 Release of Information Medical Records [address] [place] [id number] Abstract, Provider Social History Tobacco Use Types [...] EST AUTHORIZATION TO OBTAIN RECORDS MAILED TO [facility]. documented in this encounter Plan of Treatment Not on file documented as of this encounter Visit Diagnoses Not on filedocumented in this encounter Care Teams Corporate Traffic Manager Relationship Specialty Start Date End Date Yolande Nicholas DO PCP - General Internal Medicine 12/03/18 10/08/20 Anuj Priest DO PCP - General Internal Medicine 10/09/20 2 2 [facility], Pcp PCP - General Internal Medicine 06/17/21 documented as of this encounter
--- OUTSIDE RECORDS SUMMARY | 2024-06-19 18:28 | XMS_ITS | Encounter Summary ---
Author Organization [employer] Address 75 [facility] 7t [place] [address] Care Team Providers Care Senior Reliability Engineer Name Role Phone Sesar Pereyra MD Primary Care Provider +1- [phone] Reason for Visit * Reason Onset Date Comments Med Refill 04/18/2024 Encounter Details Date Type Department Care Team ([facility] st Contact Info) Description 04/18/2024 Telephone [facility] MEDICINE [address] [place] [address] Sesar Pereyra MD [address] [place] [address] Med Refill Social History Tobacco Use Types [...] needing refill : To be sent to: [facility] - [place], [place] - [address] [place] [address] [place] documented in this encounter Plan of Treatment Upcoming Encounters Date Type Department Care Team (Late st Contact Info) Description 09/11/2024 10:30 AM EDT Office Visit [facility] CHC MED & PEDS [address] [place] [address] Sesar Pereyra MD [address] [place] [address] documented as of this encounter Visit Diagnoses Not on filedocumented in this encounter Additional Health Concerns Assessment Noted Time PHQ-9 Depression Total Score: 16 024 10:59 AM EDT documented as of this encounter Care Teams Senior Reliability Engineer Relationship Specialty Start Date End Date Sesar Pereyra MD [address] [place] [address] PCP - General Internal Medicine 03/01/21 [facility] 03/22/24 documented as of this encounter
--- OUTSIDE RECORDS SUMMARY | 2024-06-19 18:28 | XMS_ITS | Encounter Summary ---
Author Organization [facility] Address [address] [place] [address] Care Team Providers Care Mileage Clerk Name Role Phone Yolande Nicholas DO Primary Care Pro vider Unavailable Anuj Priest DO Primary Care Provider [facility], Pcp Primary Care Provider Unavailabl e Reason for Visit * Reason Onset Date Comments Faxed Refill 06/06/2019 HYDROXYZINE Encounter Details Date Type Department Care Team Description 06/06/2019 Refill Adult Medicine [address] [address] Yolande Nicholas DO Faxed Refill (HYDROXYZINE ) [...] MEDICARE / Plan: MEDICARE FFS $5 [facility] [id number] / Product Type: MEDICARE [id number] documented in this encounter Plan of Treatment Not on file documented as of this encounter Visit Diagnoses Not on filedocumented in this encounter Care Teams Mileage Clerk Relationship Specialty Start Date End Date Yolande Nicholas DO PCP - General Internal Medicine 12/03/18 10/08/20 Anuj Priest DO PCP - General Internal Medicine 10/09/[address] [place] [address], Pcp PCP - General Internal Medicine 06/17/21 documented as of this encounter
[2024-06-19 18:44] LABS: Alanine Aminotransferase 14 U/L (0-40); Albumin Level 4.1 g/dL (3.5-5.0); Alkaline Phosphatase 119 U/L (39-117); Anion Gap 14 (12-20); Aspartate Amino Transferase 27 U/L (5-37); Bilirubin Total 0.5 mg/dL (0.0-1.0); Blood Urea Nitrogen 13 mg/dL (9-16); Calcium 9.1 mg/dL (8.4-10.2); Carbon Dioxide 23 mmol/L (22-29); Chloride 109 mmol/L (96-108); Creatinine Clr Calc Pharmacy 72.1; Estimated Glomerular Filt Rate > 60; Glucose Random 92 mg/dL (60-115); Lipase 17 U/L (8-78); Potassium 3.8 mmol/L (3.3-5.1); Sodium 142 mmol/L (135-145); Total Protein 7.7 g/dL (6.5-8.0)
[2024-06-19] MEDS: oxyCODONE HCl Immed Release 5 MG TABLET PO ×2 (19:12→21:19)
--- NOTE | 2024-06-19 19:12 | PC.NURSE ---
Patient very upset he had not been given pain medicine, verbally abusive towards this RN. Apologized to patient for delay, Dr. Moura reminded to order med, med ordered and given STAT as patient was rolling to CT.
--- NOTE | 2024-06-19 19:17 | PC.NURSE ---
Pt. difficult stick, redraw x 2, additional EDT to atttmept to draw.
[2024-06-19 20:07] LABS: Basophils Absolute Auto 0.1 X10*3/uL (0.0-0.2); Basophils Percent Auto 0.4 % (0-2); Eosinophils Percent Auto 0.2 % (0-4); Hematocrit 42.9 % (42.0-52.0); Hemoglobin 14.3 g/dl (14.0-18.0); Imm Gran Abs Auto 0.04 X10*3/uL (0.00-0.03); Imm Gran Pct Auto 0.3 % (0.0-0.4); Lymphocytes Absolute Auto 0.9 X10*3/uL (1.2-4.9); Lymphocytes Percent Auto 7.1 % (20-40); Mean Corpuscular HGB Conc 33.3 g/dl (31.0-36.0); Mean Corpuscular Hemoglobin 30.8 pg (27.0-33.0); Mean Corpuscular Volume 92.5 fL (80.0-98.0); Mean Platelet Volume 9.9 fL (9.4-12.4); Monocytes Percent Auto 8.1 % (2-11); Neutrophils Percent Auto 83.9 % (45-73); Platelet Count 238 X10*3/uL (160-400); Red Blood Count 4.64 X10*6/uL (4.60-5.80); Red Cell Distribution Width 14.4 % (11.0-16.0); White Blood Count 11.9 X10*3/uL (4.8-10.8)
[2024-06-19 20:12] LABS: MANUAL DIFF FLAG NO
[2024-06-19 20:15] LABS: INTERNATIONAL NORM RATIO 1.4 (0.9-1.1)
--- NOTE | 2024-06-19 21:29 | PC.NURSE ---
US guided IV placed by COURT W[place]en d/t patient being a difficult stick. Still waiting for Ortho consult to determine if patient will be reduced in dept vs. sent to [facility].
[2024-06-19 22:04] VITALS: BP 171/78; PULSE 79; RESP 16; TEMP 36.9; O2SAT 95
--- NOTE | 2024-06-19 22:20 | P.HPHOSP_ITS ---
History of Present Illness Date of Service: 06/19/24 Chief Complaint: Fall This is a 79-year-old male with pertinent history of CKD stage 3, coronary artery disease, paroxysmal atrial flutter on Eliquis, mood disorder, mixed hyperlipidemia, BPH, hypertension who was sent to the emergency department for evaluation after a fall. Patient states he slipped on ice near his car and fell on his left arm. Did not lose consciousness prior to the fall. No dizziness or lightheadedness prior to the fall. No chest pain or palpitations. No jerking movement of extremities. No tongue bite, urinary or bowel incontinence. Patient did not hit his head. He has been having left shoulder pain since the fall specially with movement. Patient was seen at [facility] where x-ray showed a possible dislocation and fracture and he was sent to the ER. No fever, chills, chest pain, palpitations, shortness of breath, abdominal pain, changes in urinary or bowel habits. In the emergency department, imaging with acute dislocation of glenohumeral joint and humerus fracture. Orthopedic surgery was consulted who requested admission to medicine team Review of Systems 2 Constitutional: Constitutional: Reports no additional constitutional complaints Cardiovascular: Cardiovascular: Reports no additional cardiovascular complaints Respiratory: Respiratory: Reports no additional respiratory complaints Gastrointestinal: Gastrointestinal: Reports no additional gastrointestinal complaints Genitourinary: Genitourinary: Reports no additional male genitourinary complaints Musculoskeletal: Musculoskeletal: Reports arthralgias and Reports limited range of motion [facility] Medical History Coronary artery disease Hypersomnia Snoring Neuropathy Atherosclerotic cardiovascular disease History of alcohol abuse History of COVID-19 On beta jose at home COPD (chronic obstructive pulmonary disease) On anticoagulant therapy History of atrial fibrillation PVD (peripheral vascular disease) Renal cell carcinoma Hypertension Depression Anxiety Diverticulitis Surgical History H/O cardiac catheterization History of colectomy S/P femoral-femoral bypass surgery Social History Household Members: Significant Other Housing: House Do you presently have visiting nurse or other home services: No Alcohol intake: never Patient Tobacco Use Status: Former Tobacco user Tobacco use type: Cigarette Smoked in Last 30 Days: No Use of substances other than those prescribed or required for medical reasons: No Substance Use Type: Marijuana Advance Directives: Yes Advance Directives on File: Yes Advance Directives Date on File: 06/09/21 service: Yes Current occupational status: retired Current occupation: right hand dominant Meds Allergies Allergy/AdvReac Type Severity Reaction Status Date / Time No Known Allergies Allergy Verified 06/19/24 17:33 [No Known Allergies*] Home Medications ?Medication ?Instructions ?Recorded ?Confirmed ?Last Taken ?Type docusate sodium 100 mg capsule 100 mg PO DAILY 08/17/21 05/27/24 Unknown History apixaban 5 mg tablet (Eliquis) 5 mg PO BID 01/27/22 05/27/24 05/27/22 History atorvastatin 80 mg tablet 80 mg PO DAILY 01/27/22 05/27/24 Unknown History sertraline 50 mg tablet 50 mg PO DAILY 07/06/22 05/27/24 Unknown History quetiapine 25 mg tablet 25 mg PO BID 12/28/22 05/27/24 Unknown History tamsulosin 0.4 mg capsule 0.4 mg PO DAILY 03/07/23 05/27/24 Unknown History cilostazol 50 mg tablet 50 mg PO BID 03/27/23 05/27/24 Unknown History clonazepam 0.5 mg tablet 0.5 mg PO BID Anxiety 11/15/23 05/27/24 Unknown History dextroamphetamine-amphetamine 7.5 1 tab PO DAILY 03/18/24 05/27/24 Unknown History mg tablet melatonin 3 mg capsule 3 mg PO BEDTIME PRN 04/12/24 05/27/24 Unknown History Physical Exam 2 Vital Signs and Narrative: Vital Signs: Last Vital Signs Temp 98.4 F 06/19/24 22:04 Pulse 79 06/19/24 22:04 Resp 16 06/19/24 22:04 BP 171/78 H 06/19/24 22:04 Pulse Ox 95 06/19/24 22:04 O2 Del Method Room Air 06/19/24 22:04 BMI result Body Mass Index 31.7 Middle-aged male lying in bed in no distress Neck supple, no JVD Regular rate and rhythm, S1-S2 heard Regular breath sounds bilaterally, no wheezing or crackles appreciated Abdomen soft nontender, no guarding, no rigidity Patient is awake, alert and oriented to self, place, time and person ; no focal motor deficit Psych: Normal mood Left upper extremity in sling, limited range of motion due to pain Results Labs 06/19/24 19:57 06/19/24 18:17 Labs: Laboratory Results - last 24 hr 06/19/24 06/19/24 18:17 19:57 MCV 92.5 MCH 30.8 MCHC 33.3 RDW 14.4 Plt Count 238 MPV 9.9 Immature Gran % (Auto) 0.3 Neut % (Auto) 83.9 H Lymph % (Auto) 7.1 L [place] % (Auto) 8.1 Eos % (Auto) 0.2 Baso % (Auto) 0.4 Lymph # (Auto) 0.9 L [place] # (Auto) 1.0 Eos # (Auto) 0.0 Baso # (Auto) 0.1 Abs Immat Gran (auto) 0.04 H Absolute Neuts (auto) 10.0 H Absolute Nucleated RBC 0.000 Nucleated RBC % (auto) 0.0 PT 16.0 H INR 1.4 H Anion Gap 14 Estim Creat Clear Calc 72.1 Estimated GFR > 60 Random Glucose 92 Calcium 9.1 Total Bilirubin 0.5 AST 27 ALT 14 Alkaline Phosphatase 119 H Total Protein 7.7 Albumin 4.1 Lipase 17 Assessment and Plan (1) Humerus fracture: Status: Acute (2) Dislocation of left glenohumeral joint: Status: Acute Plan This is a 79-year-old male with pertinent history of CKD stage 3, coronary artery disease, paroxysmal atrial flutter on Eliquis, mood disorder, mixed hyperlipidemia, BPH, hypertension who was sent to the emergency department for evaluation after a fall #. Acute dislocation of left glenohumeral joint with impaction fracture of the humerus: Due to mechanical fall. Will admit patient with p.r.n. opioid for analgesia. Consulted Orthopedic surgery, appreciate assistance. Will hold Eliquis. Last took Eliquis on the morning of 06/19 #. Paroxysmal atrial flutter: On Multaq and beta-jose. Hold anticoagulation #. CKD stage III: Creatinine at baseline. Monitor #. Hypertension: Continue home antihypertensives, hold lisinopril 24 hours prior to surgery to prevent postop hypotension #. Coronary artery disease: On high-intensity statin and Plavix #. Mood disorder: Continue home mood stabilizers #. BPH: On Flomax Med rec pending DVT prophylaxis: SCDs Full code Admit as inpatient and will require two night minimum hospital stay for possible surgical management of humerus fracture (as above), which is not possible in a lesser acute setting. Ortho consult pending Quality Stroke Does the patient have a stroke diagnosis?: No VTE Prior VTE?: No VTE Risk Level:: Medical - moderate - high VTE Device Contraindication: N/A - Device Ordered VTE Drug Contraindication: Treatment Not Indicated
[2024-06-19 23:40] VITALS: BP 148/61; PULSE 83; RESP 16; TEMP 37; O2SAT 93
--- NOTE | 2024-06-19 23:41 | MHC.EDTECH ---
pt given diet cathy enedina and a urinal. Vitals taken.
[2024-06-19] MEDS: 0.9 % Sodium Chloride Flush 3 ML SYRINGE IVFLUSH (23:47)
[2024-06-20] VITALS (8 sets, daily range): BP systolic 151–196; BP diastolic 69–98; PULSE 61–88; RESP 16–18; TEMP 36.3–37.2; O2SAT 92–98
--- NOTE | 2024-06-20 | ECG_ITS ---
Test Reason : pre op Blood Pressure : */* mmHG Vent. Rate : 141 BPM Atrial Rate : * BPM P-R Int : * ms QRS Dur : 106 ms QT Int : 352 ms P-R-T Axes : * -16 -2 degrees QTcB Int : 539 ms possible atrial flutter Incomplete right bundle branch block Septal infarct (cited on or before 19-Mar-2024) Abnormal ECG When compared with ECG of 19-Mar-2024 20:23, Premature ventricular complexes are now Present Referred By: Lauren Manuel Electronically Signed By: ALYSHA BEE
--- NOTE | 2024-06-20 00:29 | PC.NURSE ---
assumed care of pt at 23:15
[2024-06-20] MEDS: oxyCODONE HCl Immed Release 5 MG TABLET PO (02:27)
--- NOTE | 2024-06-20 02:31 | PC.NURSE ---
pt reporting 9/10 pain, medicated per mar with oxycodone.
--- NOTE | 2024-06-20 03:45 | PC.NURSE ---
pt reports no relief of pain from oxycodone administration. pain is still 10/10, worse than ever per pt. MD Li aware, ordered 4mg morphine iv, administered per jun. pt speaking clear full sentences.
[2024-06-20] MEDS: ondansetron HCL 4 MG/2 ML VIAL IVPUSH (03:49)
[2024-06-20] MEDS: Morphine Sulfate 4 MG/ML CARTRIDGE IVPUSH ×3 (03:49→11:54)
--- NOTE | 2024-06-20 08:45 | P.CONOP_ITS ---
History of Present Illness HPI Consult date: 06/20/24 Chief complaint: Fall Narrative: 79-year-old male presents to the emergency department after a fall in his driveway yesterday Patient reports left-sided elbow and shoulder pain X-rays and CT scan taken in the ED reveal displaced glenoid fracture with associated anterior shoulder dislocation, proximal humerus Hill-Sachs fracture, coracoid process fracture, and lateral scapula fracture Today, patient reports that is in a fairly significant amount of pain, but is reasonably comfortable for his injuries Patient inquires if he will need any surgery for his injury Denies any numbness or tingling in the left upper extremity No other acute complaints or concerns at this time Review of Systems 2 Review of Systems: Yes all other systems are reviewed and are negative PMFSH Past Medical History Medical History Coronary artery disease Hypersomnia Snoring Neuropathy Atherosclerotic cardiovascular disease History of alcohol abuse History of COVID-19 On beta jose at home COPD (chronic obstructive pulmonary disease) On anticoagulant therapy History of atrial fibrillation PVD (peripheral vascular disease) Renal cell carcinoma Hypertension Depression Anxiety Diverticulitis Surgical History Surgical History H/O cardiac catheterization History of colectomy S/P femoral-femoral bypass surgery Social History Social History Household Members: Significant Other Housing: House Do you presently have visiting nurse or other home services: No Alcohol intake: never Patient Tobacco Use Status: Former Tobacco user Tobacco use type: Cigarette Substance Use Type: Marijuana Advance Directives Date on File: 06/09/21 service: Yes Current occupational status: retired Current occupation: right hand dominant Meds Allergies Allergy/AdvReac Type Severity Reaction Status Date / Time No Known Allergies Allergy Verified 06/19/24 17:33 [No Known Allergies*] Active Medications: Current Medications Acetaminophen (Acetaminophen 325 Mg Tablet) 650 mg PO Q6H PRN PRN Reason: Pain, Mild 1-3,fever,headache Calcium Carbonate (Calcium Carbonate 750 Mg Tab.Chew) 750 mg PO Q4H PRN PRN Reason: Heartburn Cefazolin Sodium/Dextrose (Ancef) 2 gm in 50 mls @ 100 mls/hr IV PREOP ONE Stop: 06/21/24 09:29 Magnesium Hydroxide (Milk Of Magnesia 30 Ml Oral.Susp) 30 ml PO DAILY PRN PRN Reason: Constipation Melatonin (Melatonin 3 Mg Tablet) 6 mg PO BEDTIME PRN PRN Reason: Insomnia Morphine Sulfate (Morphine Sulfate 4 Mg/Ml Cartridge) 4 mg IVPUSH Q4H PRN; Protocol PRN Reason: Pain, Severe (Pain Scale 7-10) Last Admin: 06/20/24 08:35 Dose: 4 mg Ondansetron HCl (Ondansetron Hcl 4 Mg/2 Ml Vial) 4 mg IVPUSH Q8H PRN PRN Reason: Nausea and Vomiting Last Admin: 06/20/24 03:49 Dose: 4 mg Oxycodone HCl (Oxycodone Hcl Immed Release 5 Mg Tablet) 5 mg PO Q6H PRN PRN Reason: Pain, Moderate(Pain Scale 4-6) Sodium Chloride (0.9 % Sodium Chloride Flush 3 Ml Syringe) 3 ml [facility] [place] Last Admin: 06/20/24 07:18 Dose: Not Given Home Medications ?Medication ?Instructions ?Recorded ?Confirmed ?Last Taken ?Type docusate sodium 100 mg capsule 100 mg PO DAILY 08/17/21 05/27/24 Unknown History apixaban 5 mg tablet (Eliquis) 5 mg PO BID 01/27/22 05/27/24 05/27/22 History atorvastatin 80 mg tablet 80 mg PO DAILY 01/27/22 05/27/24 Unknown History sertraline 50 mg tablet 50 mg PO DAILY 07/06/22 05/27/24 Unknown History quetiapine 25 mg tablet 25 mg PO BID 12/28/22 05/27/24 Unknown History tamsulosin 0.4 mg capsule 0.4 mg PO DAILY 03/07/23 05/27/24 Unknown History cilostazol 50 mg tablet 50 mg PO BID 03/27/23 05/27/24 Unknown History clonazepam 0.5 mg tablet 0.5 mg PO BID Anxiety 11/15/23 05/27/24 Unknown History dextroamphetamine-amphetamine 7.5 1 tab PO DAILY 03/18/24 05/27/24 Unknown History mg tablet melatonin 3 mg capsule 3 mg PO BEDTIME PRN 04/12/24 05/27/24 Unknown History Physical Exam 2 Vital Signs: Vital Signs: Last Vital Signs Temp 98.9 F 06/20/24 06:11 Pulse 72 06/20/24 06:11 Resp 16 06/20/24 08:35 BP 177/69 H 06/20/24 06:11 Pulse Ox 93 06/20/24 06:11 O2 Del Method Room Air 06/20/24 06:11 BMI result Body Mass Index 31.7 Extrem: Other: There is a visible deformity to the patient's left shoulder consistent with anterior shoulder dislocation No erythema,edema noted No lacerations, abrasions, open areas No evidence of infection Patient reports circumferential tenderness to palpation of the left shoulder Patient is able to flex and extend the digits of the left hand fully and without difficulty Distal sensation intact Capillary refill brisk Results Labs 06/19/24 19:57 06/19/24 18:17 Labs: Abnormal lab results 06/19/24 06/19/24 Range/Units 18:17 19:57 WBC 11.9 H (4.8-10.8) X10*3/uL Neut % (Auto) 83.9 H (45-73) % Lymph % (Auto) 7.1 L (20-40) % Lymph # (Auto) 0.9 L (1.2-4.9) X10*3/uL Abs Immat Gran (auto) 0.04 H (0.00-0.03) X10*3/uL Absolute Neuts (auto) 10.0 H (2.0-8.3) x10*3/uL PT 16.0 H (10.9-12.4) SEC INR 1.4 H (0.9-1.1) Chloride 109 H (96-108) mmol/L Alkaline Phosphatase 119 H (39-117) U/L H & H 06/19/24 Range/Units 19:57 Hgb 14.3 D (14.0-18.0) g/dl Hct 42.9 D (42.0-52.0) % Coagulation 06/19/24 Range/Units 19:57 INR 1.4 H (0.9-1.1) All other labs normal. Diagnostic results Shoulder x-ray: report reviewed and image reviewed Shoulder MRI: report reviewed and image reviewed Assessment and Plan (1) Closed left scapular fracture: Status: Acute (2) Fracture, humerus: Status: Acute (3) Anterior dislocation of humerus: Status: Acute (4) Dislocation of left glenohumeral joint: Status: Acute Plan Patient was discussed with both Dr. Harrison and Dr. Kothari, and a collaborative treatment plan was formed: Patient is educated about these injuries At this time, patient was informed that he will require surgical intervention for treatment of his injuries I educated the patient about the condition. I discussed both operative and nonoperative treatment options. The patient would like to proceed with surgery. The risks and benefits of operative treatment were discussed with the patient and the patient wishes to proceed with surgery. These risks include, but are not limited to, risk of damage to blood vessels, nerves, tendons, infection, recurrence, incomplete relief of preoperative symptoms, persistent pain, possible need for further surgery, and the risks associated with regional blocks and/or anesthesia. Plan is to take the patient to the operating room at some point tomorrow, 06/21/2024 for the following procedures: 1. ORIF of left proximal humerus, glenoid, scapula, and coracoid process All of the preoperative paperwork including the consent was discussed today. All of the patient's questions were answered in the clinic today. Proceed with admission to medicine service Continue to hold Eliquis NPO at midnight for surgery tomorrow Pain management per Medicine Continue with all other recommendations per Medicine Procedures Date of Service Date of Service: 06/20/24
[2024-06-20 09:36] LABS: MANUAL DIFF FLAG NO
[2024-06-20 09:38] LABS: Basophils Absolute Auto 0.1 X10*3/uL (0.0-0.2); Basophils Percent Auto 0.5 % (0-2); Eosinophils Absolute Auto 0.1 X10*3/uL (0.0-0.4); Eosinophils Percent Auto 0.5 % (0-4); Hematocrit 42.2 % (42.0-52.0); Hemoglobin 14.2 g/dl (14.0-18.0); Imm Gran Abs Auto 0.02 X10*3/uL (0.00-0.03); Imm Gran Pct Auto 0.2 % (0.0-0.4); Lymphocytes Absolute Auto 0.8 X10*3/uL (1.2-4.9); Lymphocytes Percent Auto 8.1 % (20-40); Mean Corpuscular HGB Conc 33.6 g/dl (31.0-36.0); Mean Corpuscular Hemoglobin 31.2 pg (27.0-33.0); Mean Corpuscular Volume 92.7 fL (80.0-98.0); Monocytes Absolute Auto 1.3 X10*3/uL (0.1-1.2); Monocytes Percent Auto 12.6 % (2-11); Neutrophils Absolute Auto 7.8 x10*3/uL (2.0-8.3); Neutrophils Percent Auto 78.1 % (45-73); Platelet Count 238 X10*3/uL (160-400); Red Blood Count 4.55 X10*6/uL (4.60-5.80); Red Cell Distribution Width 14.5 % (11.0-16.0)
[2024-06-20 09:51] LABS: Anion Gap 12 (12-20); Blood Urea Nitrogen 12 mg/dL (9-16); Calcium 8.7 mg/dL (8.4-10.2); Carbon Dioxide 22 mmol/L (22-29); Chloride 109 mmol/L (96-108); Creatinine Clr Calc Pharmacy 76.2; Estimated Glomerular Filt Rate > 60; Glucose Random 114 mg/dL (60-115); Potassium 3.5 mmol/L (3.3-5.1); Sodium 139 mmol/L (135-145)
--- NOTE | 2024-06-20 11:46 | MHC.CM.PN ---
IMM 06/20/24 S/P fall L shoulder FX. NPO for surgical intervention scheduled for tomorrow, 06/21/24. He lives with his S.O., Ame 30 yrs. He is independent with all functional mobility at baseline. [facility] provides funeral home manager services 1x a week. HCP on file verified. DP out patient therapy if ordered by surgeon. S.O. will provide transport home.
--- NOTE | 2024-06-20 11:55 | P.PNIM_ITS ---
Subjective Subjective Date of Service: 06/20/24 Interval History: seen and examined this morning Follow-up for left humerus, left scapula fracture after mechanical fall Patient awake, alert, reporting left shoulder pain. Denies shortness of breath, dizziness, chest pain Review of Systems Review of Systems: Yes all other systems are reviewed and are negative Constitutional Constitutional: Denies chills and Denies fever(s) Cardiovascular Cardiovascular: Denies chest pain, Denies palpitations and Denies dyspnea Respiratory Respiratory: Denies cough and Denies dyspnea Gastrointestinal Gastrointestinal: Denies abdominal pain, Denies nausea and Denies vomiting Endocrine Endocrine: Denies palpitations Physical Exam 2 Vital Signs: Vital Signs: Last Vital Signs Temp 98.6 F 06/20/24 09:12 Pulse 72 06/20/24 09:12 Resp 16 06/20/24 09:12 BP 196/98 H 06/20/24 11:52 Pulse Ox 94 06/20/24 09:12 O2 Del Method Room Air 06/20/24 09:12 BMI result Body Mass Index 31.7 Const: General: cooperative, alert and awake Nutritional Appearance: o verweight Orientation/consciousness: patient oriented x3 Resp: Effort & Inspection: normal respiratory effort, able to speak in complete sentences, no respiratory distress and no use of accessory muscles A uscultation: clear to auscultation bilaterally Cardio: Rate: regular rate GI: Inspection: No distended Palpation (GI): Soft to palpation Neuro: General: patient oriented x3 Extrem: Other: left arm in sling Objective Data Active Medications Acetaminophen (Acetaminophen 325 Mg Tablet) 650 mg PO Q6H PRN PRN Reason: Pain, Mild 1-3,fever,headache Calcium Carbonate (Calcium Carbonate 750 Mg Tab.Chew) 750 mg PO Q4H PRN PRN Reason: Heartburn Dronedarone (Dronedarone Hcl 400 Mg Tablet) 400 mg PO BID [facility] Hydralazine HCl (Hydralazine Hcl 25 Mg Tablet) 25 mg PO BID [facility]; Protocol Cefazolin Sodium/Dextrose (Ancef) 2 gm in 50 mls @ 100 mls/hr IV PREOP ONE Stop: 06/21/24 09:29 Magnesium Hydroxide (Milk Of Magnesia 30 Ml Oral.Susp) 30 ml PO DAILY PRN PRN Reason: Constipation Melatonin (Melatonin 3 Mg Tablet) 6 mg PO BEDTIME PRN PRN Reason: Insomnia Metoprolol Tartrate (Metoprolol Tartrate 25 Mg Tablet) 25 mg PO BID [facility]; Protocol Morphine Sulfate (Morphine Sulfate 4 Mg/Ml Cartridge) 4 mg IVPUSH Q4H PRN; Protocol PRN Reason: Pain, Severe (Pain Scale 7-10) Last Admin: 06/20/24 08:35 Dose: 4 mg Documented By: JAD Ondansetron HCl (Ondansetron Hcl 4 Mg/2 Ml Vial) 4 mg IVPUSH Q8H PRN PRN Reason: Nausea and Vomiting Last Admin: 06/20/24 03:49 Dose: 4 mg Documented By: KATINA Oxycodone HCl (Oxycodone Hcl Immed Release 5 Mg Tablet) 5 mg PO Q6H PRN PRN Reason: Pain, Moderate(Pain Scale 4-6) Sodium Chloride (0.9 % Sodium Chloride Flush 3 Ml Syringe) 3 ml IVFLUSH QSHIFT [facility] Last Admin: 06/20/24 07:18 Dose: Not Given Documented By: JAD Non-Admin Reason: Previously Administered Labs 06/20/24 09:32 06/20/24 09:31 Labs: Laboratory Results - last 24 hr 06/19/24 06/19/24 06/20/24 18:17 19:57 08:35 MCV 92.5 MCH 30.8 MCHC 33.3 RDW 14.4 Plt Count 238 MPV 9.9 Immature Gran % (Auto) 0.3 Neut % (Auto) 83.9 H Lymph % (Auto) 7.1 L [place] % (Auto) 8.1 Eos % (Auto) 0.2 Baso % (Auto) 0.4 Lymph # (Auto) 0.9 L [place] # (Auto) 1.0 Eos # (Auto) 0.0 Baso # (Auto) 0.1 Abs Immat Gran (auto) 0.04 H Absolute Neuts (auto) 10.0 H Absolute Nucleated RBC 0.000 Nucleated RBC % (auto) 0.0 PT 16.0 H INR 1.4 H Anion Gap 14 Estim Creat Clear Calc 72.1 Estimated GFR > 60 Random Glucose 92 Calcium 9.1 Total Bilirubin 0.5 AST 27 ALT 14 Alkaline Phosphatase 119 H Total Protein 7.7 Albumin 4.1 Lipase 17 Blood Type O Positive Antibody Screen NEGATIVE 06/20/24 06/20/24 09:31 09:32 MCV 92.7 MCH 31.2 MCHC 33.6 RDW 14.5 Plt Count 238 MPV 10.0 Immature Gran % (Auto) 0.2 Neut % (Auto) 78.1 H Lymph % (Auto) 8.1 L [place] % (Auto) 12.6 H Eos % (Auto) 0.5 Baso % (Auto) 0.5 Lymph # (Auto) 0.8 L [place] # (Auto) 1.3 H Eos # (Auto) 0.1 Baso # (Auto) 0.1 Abs Immat Gran (auto) 0.02 Absolute Neuts (auto) 7.8 Absolute Nucleated RBC 0.000 Nucleated RBC % (auto) 0.0 PT INR Anion Gap 12 Estim Creat Clear Calc 76.2 Estimated GFR > 60 Random Glucose 114 Calcium 8.7 Total Bilirubin AST ALT Alkaline Phosphatase Total Protein Albumin Lipase Blood Type Antibody Screen Assessment and Plan (1) Closed left scapular fracture: Status: Acute (2) Fracture, humerus: Status: Acute Plan This is a 79-year-old male with pertinent history of CKD stage 3, coronary artery disease, paroxysmal atrial flutter on Eliquis, mood disorder, mixed hyperlipidemia, BPH, hypertension who was sent to the emergency department for evaluation after a fall #. Acute dislocation of left glenohumeral joint with impaction fracture of the humerus, scapula, corocoid process Due to mechanical fall seen by Orthopedic surgery - plan for surgery tomorrow afternoon - Last took Eliquis on the morning of 06/19 Preop EKG, cardiology evaluation pending Hold Eliquis pain management npo at midnight #. Paroxysmal atrial flutter: resume Multaq and metoprolol Hold anticoagulation as above #. CKD stage III: Creatinine at baseline #. Hypertension: bp uncontrolled, due to pain and missing am doses Med reconciliation still pending, will resume metoprolol, hydralazine for now and await complete home med list #. Coronary artery disease: med rec pending #. Mood disorder: Continue home mood stabilizers when med rec complete #. BPH: On Flomax when med rec complete DVT prophylaxis: SCDs Full code Admit as inpatient and will require two night minimum hospital stay for surgical management of humerus fracture (as above), which is not possible in a lesser acute setting Quality Stroke Does the patient have a stroke diagnosis?: No VTE Prior VTE?: No VTE Risk Level:: Medical - moderate - high VTE Device Contraindication: N/A - Device Ordered VTE Drug Contraindication: Treatment Not Indicated
--- NOTE | 2024-06-20 12:26 | PHA.MEDREC ---
Addendum entered by Korey Church [facility] 06/20/24 12:40: Reviewed by [facility] Original Note: Pharmacy Consult ? Medication Reconciliation Pharmacy has completed the medication reconciliation. Spoke with patient and he did not want to confirm all his medications right now and stated what we have on the list is what he is taking. I asked if he was still taking Cyclobenzaprine 10mg tabs and he stated he was not taking that anymore and only had a 10 day supply of that from last month. He also confirmed with me the Metoprolol 25mg tab and confirmed he is taking it once daily while originally on the med rec twice daily which he confirmed was not correct. He states he is taking the Eliquis 5mg tab twice a day and last took it/stopped that along with his other medications yesterday morning due to him scheduled to get surgery tomorrow.
[2024-06-20] MEDS: clonazePAM 0.5 MG TABLET PO ×2 (13:00→20:36)
[2024-06-20] MEDS: hydrALAZINE HCl 25 MG TABLET PO ×2 (13:00→20:36)
[2024-06-20] MEDS: Metoprolol Tartrate 25 MG TABLET PO ×2 (13:00→20:36)
[2024-06-20] MEDS: Acetaminophen 1,000 MG/100 ML PIGGYBACK 400 MG IV (13:08)
[2024-06-20] MEDS: Dronedarone HCl 400 MG TABLET PO ×2 (13:17→20:36)
--- NOTE | 2024-06-20 15:03 | ECG_ITS ---
Test Reason : preop Blood Pressure : */* mmHG Vent. Rate : 63 BPM Atrial Rate : 63 BPM P-R Int : 208 ms QRS Dur : 86 ms QT Int : 468 ms P-R-T Axes : 88 13 61 degrees QTcB Int : 478 ms Sinus rhythm with Premature atrial complexes cannot exclude old Septal infarct (cited on or before 19-Mar-2024) Abnormal ECG When compared with ECG of 20-Jun-2024 10:43, Vent. rate has decreased by 78 bpm Referred By: Alysha Bee Electronically Signed By: ALYSHA BEE
--- NOTE | 2024-06-20 15:08 | P.CONCA_ITS ---
History of Present Illness History of Present Illness Date of Service: 06/20/24 Chief complaint: Fall Narrative: This is a cardiology consultation regarding preoperative evaluation. He has shoulder fracture and that requires surgery and hence we are consulted. Last seen by me in the clinic in 2022 and after that, he has seen our nurse practitioner. He has undergone cardiac catheterization in 2022 and that showed 65% proximal LAD stenosis status post PCI. Otherwise, he has got 100% ostial diagonal artery stenosis, 50% stenosis in the mid RCA and right PDA. He also has paroxysmal atrial flutter, ascending aortic aneurysm. He was last seen by nurse practitioner a month ago. Per that note, it seems that there was a visit in March for SVT requiring IV metoprolol. After that, it seems that he has been put on Multaq. Currently, he states that he feels fine from cardiac. He does not have any symptoms like angina or shortness of breath or in fact anything cardiac sounding. With regard to the fracture, he states that he slipped and fell. He denies any syncopal episode. Review of Systems 2 Review of Systems: Yes all other systems are reviewed and are negative Constitutional: Constitutional: Reports as per HPI and Reports no additional constitutional complaints Eyes: Eyes: Reports as per HPI and Denies no additional eye complaints ENT: Denies system reviewed and no additional complaints, except as documented and Reports as per HPI Cardiovascular: Cardiovascular: Reports as per HPI, Reports no additional cardiovascular complaints, Denies acrocyanosis, Denies cool extremities, Denies chest pain, Denies leg edema, Denies lightheadedness, Denies palpitations and Denies dyspnea Respiratory: Respiratory: Reports as per HPI, Denies no additional respiratory complaints and Denies dyspnea Gastrointestinal: Gastrointestinal: Reports as per HPI and Denies no additional gastrointestinal complaints Genitourinary: Genitourinary: Reports no additional male genitourinary complaints and Reports as per HPI Musculoskeletal: Musculoskeletal: Reports no additional musculoskeletal complaints and Reports as per HPI Integumentary/Breasts: Skin/Breast: Reports system reviewed and no additional complaints, except as docu Neurologic: Reports system reviewed and no additional complaints, except as documented and Reports as per HPI Psychiatric: Psychiatric: Reports no additional psychiatric complaints and Reports as per HPI Endocrine: Endocrine: Reports no additional endocrine complaints, Reports as per HPI and Denies palpitations Hematologic/Lymphatic: Hematologic/Lymphatic: Reports no additional hematologic/lymphatic complaints and Reports as per HPI Allergic/Immunologic: Allergic/Immunologic: Reports no additional allergic/immunologic complaints and Reports as per HPI [facility] Past Medical History Medical History Coronary artery disease Hypersomnia Snoring Neuropathy Atherosclerotic cardiovascular disease History of alcohol abuse History of COVID-19 On beta jose at home COPD (chronic obstructive pulmonary disease) On anticoagulant therapy History of atrial fibrillation PVD (peripheral vascular disease) Renal cell carcinoma Hypertension Depression Anxiety Diverticulitis Family History Pertinent family history: No pertinent family history Surgical History Surgical History H/O cardiac catheterization History of colectomy S/P femoral-femoral bypass surgery Social History Social History Household Members: Significant Other Housing: House Do you presently have visiting nurse or other home services: Yes Alcohol intake: never Patient Tobacco Use Status: Former Tobacco user Tobacco use type: Cigarette Second Hand Smoke Exposure: No Substance Use Type: Marijuana Advance Directives Date on File: 06/09/21 service: Yes Current occupational status: retired Current occupation: right hand dominant Meds Allergies Allergy/AdvReac Type Severity Reaction Status Date / Time No Known Allergies Allergy Verified 06/19/24 17:33 [No Known Allergies*] Active Medications: Current Medications Acetaminophen (Acetaminophen 325 Mg Tablet) 650 mg PO Q6H PRN PRN Reason: Pain, Mild 1-3,fever,headache Atorvastatin Calcium (Atorvastatin Calcium 80 Mg Tablet) 80 mg PO DAILY [facility] Calcium Carbonate (Calcium Carbonate 750 Mg Tab.Chew) 750 mg PO Q4H PRN PRN Reason: Heartburn Clonazepam (Clonazepam 0.5 Mg Tablet) 0.5 mg PO BID [facility] Last Admin: 06/20/24 13:00 Dose: 0.5 mg Docusate Sodium (Docusate Sodium 100 Mg Capsule) 100 mg PO DAILY [facility] Dronedarone (Dronedarone Hcl 400 Mg Tablet) 400 mg PO BID [facility] Last Admin: 06/20/24 13:17 Dose: 400 mg Furosemide (Furosemide 40 Mg Tablet) 40 mg PO DAILY [facility]; Protocol Hydralazine HCl (Hydralazine Hcl 25 Mg Tablet) 25 mg PO BID [facility]; Protocol Last Admin: 06/20/24 13:00 Dose: 25 mg Hydromorphone HCl (Hydromorphone Hcl 0.5 Mg/0.5 Ml Syringe) 0.5 mg IVPUSH Q4H PRN; Protocol PRN Reason: Pain, Severe (Pain Scale 7-10) Cefazolin Sodium/Dextrose (Ancef) 2 gm in 50 mls @ 100 mls/hr IV PREOP ONE Stop: 06/21/24 09:29 Magnesium Hydroxide (Milk Of Magnesia 30 Ml Oral.Susp) 30 ml PO DAILY PRN PRN Reason: Constipation Melatonin (Melatonin 3 Mg Tablet) 6 mg PO BEDTIME PRN PRN Reason: Insomnia Metoprolol Tartrate (Metoprolol Tartrate 25 Mg Tablet) 25 mg PO BID [facility]; Protocol Last Admin: 06/20/24 13:00 Dose: 25 mg Ondansetron HCl (Ondansetron Hcl 4 Mg/2 Ml Vial) 4 mg IVPUSH Q8H PRN PRN Reason: Nausea and Vomiting Last Admin: 06/20/24 03:49 Dose: 4 mg Oxycodone HCl (Oxycodone Hcl Immed Release 5 Mg Tablet) 5 mg PO Q4H PRN PRN Reason: Pain, Moderate(Pain Scale 4-6) Quetiapine Fumarate (Quetiapine Fumarate 25 Mg Tablet) 25 mg PO BID [facility] Sertraline HCl (Sertraline Hcl 50 Mg Tablet) 50 mg PO DAILY [facility] Sodium Chloride (0.9 % Sodium Chloride Flush 3 Ml Syringe) [facility] Last Admin: 06/20/24 07:18 Dose: Not Given Tamsulosin HCl (Tamsulosin Hcl 0.4 Mg Capsule) 0.4 mg PO DAILY [facility] Home Medications ?Medication ?Instructions ?Recorded ?Confirmed ?Last Taken ?Type docusate sodium 100 mg capsule 100 mg PO DAILY 08/17/21 06/20/24 06/19/24 History apixaban 5 mg tablet (Eliquis) 5 mg PO BID 01/27/22 06/20/24 06/19/24 History atorvastatin 80 mg tablet 80 mg PO DAILY 01/27/22 06/20/24 06/19/24 History sertraline 50 mg tablet 50 mg PO DAILY 07/06/22 06/20/24 06/19/24 History quetiapine 25 mg tablet 25 mg PO BID 12/28/22 06/20/24 06/19/24 History tamsulosin 0.4 mg capsule 0.4 mg PO DAILY 03/07/23 06/20/24 06/19/24 History cilostazol 50 mg tablet 50 mg PO BID 03/27/23 06/20/24 06/19/24 History clonazepam 0.5 mg tablet 0.5 mg PO BID Anxiety 11/15/23 06/20/24 06/19/24 History dextroamphetamine-amphetamine 7.5 1 tab PO DAILY 03/18/24 06/20/24 06/19/24 History mg tablet melatonin 3 mg capsule 3 mg PO BEDTIME PRN Sleep 04/12/24 06/20/24 Unknown History metoprolol tartrate 25 mg tablet 25 mg PO DAILY 06/20/24 06/20/24 06/19/24 History Physical Exam 2 Vital Signs: Vital Signs: Last Vital Signs Temp 98.6 F 06/20/24 09:12 Pulse 72 06/20/24 09:12 Resp 16 06/20/24 09:12 BP 196/98 H 06/20/24 11:52 Pulse Ox 94 06/20/24 09:12 O2 Del Method Room Air 06/20/24 09:12 BMI result Body Mass Index 31.7 Const: General: comfortable and no acute distress O rientation/consciousness: patient oriented x3 HEENT: Other: Unremarkable Head: Yes normal to inspection Neck: Neck: Yes normal visual inspection Chest: Chest palpation & inspection: normal inspection of the chest Resp: Auscultation: clear to auscultation bilaterally Cardio: Palpation: normal PMI Heart sounds: S1 normal heart sound present, S2 normal heart sound present, no gallops, no murmurs and no rubs GI: Palpation (GI): Soft to palpation Back/Spine/Pelvis: Other: unremarkable Skin: General skin exam: no rashes or lesions noted Neuro: General: patient oriented x3 Extrem: General: Yes normal to inspection Psych: Mental Status: mental status grossly normal Objective Labs and Meds 06/20/24 09:32 06/20/24 09:31 Lab results: Laboratory Results - last 24 hr 06/19/24 06/19/24 06/20/24 18:17 19:57 08:35 WBC 11.9 H RBC 4.64 D Hgb 14.3 D Hct 42.9 D MCV 92.5 MCH 30.8 MCHC 33.3 RDW 14.4 Plt Count 238 MPV 9.9 Immature Gran % (Auto) 0.3 Neut % (Auto) 83.9 H Lymph % (Auto) 7.1 L [place] % (Auto) 8.1 Eos % (Auto) 0.2 Baso % (Auto) 0.4 Lymph # (Auto) 0.9 L [place] # (Auto) 1.0 Eos # (Auto) 0.0 Baso # (Auto) 0.1 Abs Immat Gran (auto) 0.04 H Absolute Neuts (auto) 10.0 H Absolute Nucleated RBC 0.000 Nucleated RBC % (auto) 0.0 PT 16.0 H INR 1.4 H Sodium 142 Potassium 3.8 Chloride 109 H Carbon Dioxide 23 Anion Gap 14 BUN 13 Creatinine 1.11 Estim Creat Clear Calc 72.1 Estimated GFR > 60 Random Glucose 92 Calcium 9.1 Total Bilirubin 0.5 AST 27 ALT 14 Alkaline Phosphatase 119 H Total Protein 7.7 Albumin 4.1 Lipase 17 Blood Type O Positive Antibody Screen NEGATIVE 06/20/24 06/20/24 09:31 09:32 WBC 10.0 RBC 4.55 L Hgb 14.2 Hct 42.2 MCV 92.7 MCH 31.2 MCHC 33.6 RDW 14.5 Plt Count 238 MPV 10.0 Immature Gran % (Auto) 0.2 Neut % (Auto) 78.1 H Lymph % (Auto) 8.1 L [place] % (Auto) 12.6 H Eos % (Auto) 0.5 Baso % (Auto) 0.5 Lymph # (Auto) 0.8 L [place] # (Auto) 1.3 H Eos # (Auto) 0.1 Baso # (Auto) 0.1 Abs Immat Gran (auto) 0.02 Absolute Neuts (auto) 7.8 Absolute Nucleated RBC 0.000 Nucleated RBC % (auto) 0.0 PT INR Sodium 139 Potassium 3.5 Chloride 109 H Carbon Dioxide 22 Anion Gap 12 BUN 12 Creatinine 1.05 Estim Creat Clear Calc 76.2 Estimated GFR > 60 Random Glucose 114 Calcium 8.7 Total Bilirubin AST ALT Alkaline Phosphatase Total Protein Albumin Lipase Blood Type Antibody Screen ECG Interpretation: In the most recent EKG today, sinus rhythm at 61/Min with mild PA prolongation. Borderline prolonged corrected QT at 479 milliseconds. However, in another EKG around the same time, corrected QT is normal. In the initial EKG on arrival, there is evidence of tachycardia at 01:41/Min. However, not clear what the rhythm is. Could be atrial flutter. Assessment and Plan (1) Preoperative cardiovascular examination: Status: Acute (2) Paroxysmal atrial flutter: Status: Acute (3) Atherosclerotic cardiovascular disease: Status: Acute Plan Last echocardiogram from 2021,-LVEF 55-60%. Cardiac catheterization 05/2022-status post LAD stent. At that time, 100% ostial diagonal stenosis, mid RCA, RPDA 50% stenosis. Initial EKG on admission with possible atrial flutter but then in sinus rhythm. Clinically, he has got no cardiac symptoms currently or recently. May proceed with planned shoulder surgery. Intermediate cardiac risk. Continue Multaq and metoprolol without interruption. Resume Eliquis as soon able after surgery. Procedures Date of Service Date of Service: 06/20/24
[2024-06-20] MEDS: 0.9 % Sodium Chloride Flush 3 ML SYRINGE IVFLUSH ×2 (16:32→20:46)
[2024-06-20] MEDS: HYDROmorphone HCl 0.5 MG/0.5 ML SYRINGE IVPUSH ×2 (16:37→20:40)
[2024-06-20] MEDS: QUEtiapine Fumarate 25 MG TABLET PO (20:36)
[2024-06-21] VITALS (10 sets, daily range): BP systolic 135–182; BP diastolic 72–89; PULSE 56–94; RESP 14–18; TEMP 36.4–37.1; O2SAT 92–97
[2024-06-21] MEDS: HYDROmorphone HCl 0.5 MG/0.5 ML SYRINGE IVPUSH ×4 (00:41→12:50)
[2024-06-21 05:56] LABS: Hematocrit 42.4 % (42.0-52.0); Hemoglobin 14.2 g/dl (14.0-18.0); Mean Corpuscular HGB Conc 33.5 g/dl (31.0-36.0); Mean Corpuscular Hemoglobin 31.2 pg (27.0-33.0); Mean Corpuscular Volume 93.2 fL (80.0-98.0); Mean Platelet Volume 10.6 fL (9.4-12.4); Platelet Count 237 X10*3/uL (160-400); Red Blood Count 4.55 X10*6/uL (4.60-5.80); Red Cell Distribution Width 14.6 % (11.0-16.0); White Blood Count 9.1 X10*3/uL (4.8-10.8)
[2024-06-21 06:10] LABS: Anion Gap 12 (12-20); Blood Urea Nitrogen 13 mg/dL (9-16); Calcium 8.7 mg/dL (8.4-10.2); Carbon Dioxide 23 mmol/L (22-29); Chloride 108 mmol/L (96-108); Creatinine Clr Calc Pharmacy 77.7; Estimated Glomerular Filt Rate > 60; Glucose Random 100 mg/dL (60-115); Potassium 3.6 mmol/L (3.3-5.1); Sodium 139 mmol/L (135-145)
[2024-06-21] MEDS: 0.9 % Sodium Chloride Flush 3 ML SYRINGE IVFLUSH (08:31)
[2024-06-21] MEDS: Dronedarone HCl 400 MG TABLET PO ×2 (08:31→20:18)
[2024-06-21] MEDS: Sertraline HCL 50 MG TABLET PO (08:31)
[2024-06-21] MEDS: Tamsulosin HCL 0.4 MG CAPSULE PO (08:31)
[2024-06-21] MEDS: Atorvastatin Calcium 80 MG TABLET PO (08:31)
[2024-06-21] MEDS: clonazePAM 0.5 MG TABLET PO ×2 (08:32→20:19)
[2024-06-21] MEDS: Docusate Sodium 100 MG CAPSULE PO (08:32)
[2024-06-21] MEDS: Furosemide 40 MG TABLET PO (08:32)
[2024-06-21] MEDS: hydrALAZINE HCl 25 MG TABLET PO ×2 (08:32→20:19)
[2024-06-21] MEDS: Metoprolol Tartrate 25 MG TABLET PO (08:32)
[2024-06-21] MEDS: QUEtiapine Fumarate 25 MG TABLET PO ×2 (08:33→20:18)
[2024-06-21] MEDS: Acetaminophen 1,000 MG/100 ML PIGGYBACK 400 MG IV (11:18)
--- NOTE | 2024-06-21 13:00 | HO.PM.IMPN ---
Subjective Subjective Date of Service: 06/21/24 Interval History: seen and examined this morning follow up for left humerus, scapula reporting significant pain in left shoulder denies chest pain, sob, palpitations, dizziness Review of Systems Review of Systems: Yes all other systems are reviewed and are negative Constitutional Constitutional: Denies chills and Denies fever(s) ENT Ears, Nose, Mouth, and Throat: Denies dizziness Cardiovascular Cardiovascular: Denies chest pain, Denies palpitations and Denies dyspnea Respiratory Respiratory: Denies cough and Denies dyspnea Gastrointestinal Gastrointestinal: Denies abdominal pain, Denies nausea and Denies vomiting Neurologic Neurologic: Denies dizziness Endocrine Endocrine: Denies palpitations Physical Exam Vital Signs: Vital Signs: Last Vital Signs Temp 97.6 F 06/21/24 07:27 Pulse 62 06/21/24 07:27 Resp 18 06/21/24 07:27 BP 161/79 H 06/21/24 07:27 Pulse Ox 94 06/21/24 07:27 O2 Del Method Room Air 06/21/24 07:27 BMI result Body Mass Index 31.7 Const: General: cooperative, alert and awake Nutritional Appearance: overweight Orientation/consciousness: patient oriented x3 Resp: Effort & Inspection: normal respiratory effort, able to speak in complete sentences, no respiratory distress and no use of accessory muscles Auscultation: clear to auscultation bilaterally Cardio: Rate: regular rate GI: Inspection: No distended Palpation (GI): Soft to palpation Neuro: General: patient oriented x3 Extrem: Other: left arm in sling Objective Data Active Medications Acetaminophen (Acetaminophen 325 Mg Tablet) 650 mg PO Q6H PRN PRN Reason: Pain, Mild 1-3,fever,headache Atorvastatin Calcium (Atorvastatin Calcium 80 Mg Tablet) 80 mg PO DAILY [facility] Last Admin: 06/21/24 08:31 Dose: 80 mg Documented By: JUAN JOSE Calcium Carbonate (Calcium Carbonate 750 Mg Tab.Chew) 750 mg PO Q4H PRN PRN Reason: Heartburn Clonazepam (Clonazepam 0.5 Mg Tablet) 0.5 mg PO BID [facility] Last Admin: 06/21/24 08:32 Dose: 0.5 mg Documented By: JUAN JOSE Docusate Sodium (Docusate Sodium 100 Mg Capsule) 100 mg PO DAILY [facility] Last Admin: 06/21/24 08:32 Dose: 100 mg Documented By: JUAN JOSE Dronedarone (Dronedarone Hcl 400 Mg Tablet) 400 mg PO BID [facility] Last Admin: 06/21/24 08:31 Dose: 400 mg Documented By: JUAN JOSE Furosemide (Furosemide 40 Mg Tablet) 40 mg PO DAILY [facility]; Protocol Last Admin: 06/21/24 08:32 Dose: 40 mg Documented By: JUAN JOSE Hydralazine HCl (Hydralazine Hcl 25 Mg Tablet) 25 mg PO BID [facility]; Protocol Last Admin: 06/21/24 08:32 Dose: 25 mg Documented By: JUAN JOSE Hydromorphone HCl (Hydromorphone Hcl 0.5 Mg/0.5 Ml Syringe) 0.5 mg IVPUSH Q4H PRN; Protocol PRN Reason: Pain, Severe (Pain Scale 7-10) Last Admin: 06/21/24 12:50 Dose: 0.5 mg Documented By: JUAN JOSE Magnesium Hydroxide (Milk Of Magnesia 30 Ml Oral.Susp) 30 ml PO DAILY PRN PRN Reason: Constipation Melatonin (Melatonin 3 Mg Tablet) 6 mg PO BEDTIME PRN PRN Reason: Insomnia Metoprolol Tartrate (Metoprolol Tartrate 25 Mg Tablet) 25 mg PO BID [facility]; Protocol Last Admin: 06/21/24 08:32 Dose: 25 mg Documented By: JUAN JOSE Ondansetron HCl (Ondansetron Hcl 4 Mg/2 Ml Vial) 4 mg IVPUSH Q8H PRN PRN Reason: Nausea and Vomiting Last Admin: 06/20/24 03:49 Dose: 4 mg Documented By: KATINA Oxycodone HCl (Oxycodone Hcl Immed Release 5 Mg Tablet) 5 mg PO Q4H PRN PRN Reason: Pain, Moderate(Pain Scale 4-6) Quetiapine Fumarate (Quetiapine Fumarate 25 Mg Tablet) 25 mg PO BID [facility] Last Admin: 06/21/24 08:33 Dose: 25 mg Documented By: JUAN JOSE Sertraline HCl (Sertraline Hcl 50 Mg Tablet) 50 mg PO DAILY [facility] Last Admin: 06/21/24 08:31 Dose: 50 mg Documented By: JUAN JOSE Sodium Chloride (0.9 % Sodium Chloride Flush 3 Ml Syringe) [facility] Last Admin: 06/21/24 08:31 Dose: 3 ml Documented By: JUAN JOSE Tamsulosin HCl (Tamsulosin Hcl 0.4 Mg Capsule) 0.4 mg PO DAILY [facility] Last Admin: 06/21/24 08:31 Dose: 0.4 mg Documented By: JUAN JOSE Labs 06/21/24 05:11 06/21/24 05:11 Labs: Laboratory Results - last 24 hr 06/21/24 05:11 MCV 93.2 MCH 31.2 MCHC 33.5 RDW 14.6 Plt Count 237 MPV 10.6 Absolute Nucleated RBC 0.000 Nucleated RBC % (auto) 0.0 Anion Gap 12 Estim Creat Clear Calc 77.7 Estimated GFR > 60 Random Glucose 100 Calcium 8.7 Assessment and Plan (1) Humerus fracture: Status: Acute Plan This is a 79-year-old male with pertinent history of CKD stage 3, coronary artery disease, paroxysmal atrial flutter on Eliquis, mood disorder, mixed hyperlipidemia, BPH, hypertension who was sent to the emergency department for evaluation after a fall Acute dislocation of left glenohumeral joint with impaction fracture of the humerus, scapula, corocoid process Due to mechanical fall seen by Orthopedic surgery - plan for surgery today - Last took Eliquis on the morning of 06/19 Preop EKG done, seen by cardiology Hold Eliquis pain management npo at midnight Paroxysmal atrial flutter: continue Multaq and metoprolol Hold anticoagulation as above CKD stage III: Creatinine at baseline Hypertension: bp uncontrolled, due to pain and missing am doses resumed on metoprolol, hydralazine Coronary artery disease: continue statin, cilostazol Mood disorder: Continue home mood stabilizers when med rec complete BPH: continue Flomax DVT prophylaxis: SCDs until after surgery Full code Patient requires ongoing inpatient stay for surgical management of humerus fracture (as above), which is not possible in a lesser acute setting Quality Stroke Does the patient have a stroke diagnosis?: No VTE Prior VTE?: No VTE Risk Level:: Medical - moderate - high VTE Device Contraindication: N/A - Device Ordered VTE Drug Contraindication: Treatment Not Indicated
--- NOTE | 2024-06-21 15:06 | MHC.SHP ---
Pre-Procedural Eval Section A - 24 Hr Update-Section A only Date of Service: 06/21/24 The patient is an INPATIENT: Yes Changes since office visit: No Cold of Flu in the past 2 weeks, No New Medical Problems, No Changes in Medication and No Patient answered all questions The patient has been examined within 24 hours of the surgical procedure. The History & Physical has been completed within 30 days and I have reviewed it.: Yes Section B - Complete if H&P > 30 days Chief Complaint: Fall Allergies: Allergies Allergy/AdvReac Type Severity Reaction Status Date / Time No Known Allergies Allergy Verified 06/21/24 15:00 [No Known Allergies*] Plan I have reviewed the history and physical and performed a pertinent physical examination on my patient. No changes have occurred unless specified. Time Spent With Patient Time: Total time managing care of this patient today ____ minutes.
--- NOTE | 2024-06-21 15:11 | P.CONAN_ITS ---
HPI - Anesthesia Eval Consult details Narrative: 79 yo male patient for Left shoulder arthroscopy, possible ORIF PMFSH Active Problems Active Problems: All Active Problems Closed left scapular fracture (Acute) Fracture, humerus (Acute) Anterior dislocation of humerus (Acute) Dislocation of left glenohumeral joint (Acute) Humerus fracture (Acute) Shoulder pain, left (Acute) Right clavicle fracture (Acute) Cellulitis (Acute) Renal malignant neoplasm (Acute) CKD (chronic kidney disease) stage 3, GFR 30-59 ml/min (Acute) Paroxysmal atrial fibrillation (Acute) Sleep difficulties (Acute) Axonal sensorimotor neuropathy (Acute) Enlarged prostate (Acute) Lower urinary tract symptoms (Acute) History of renal cell carcinoma (Acute) Complex renal cyst (Acute) Numbness (Acute) Pseudoaneurysm of distal right radial artery of upper extremity (Acute) S/P cardiac cath (Acute) Coronary artery calcification seen on CT scan (Acute) Ascending aortic aneurysm (Acute) Paroxysmal atrial flutter (Acute) Preoperative cardiovascular examination (Acute) Encounter for screening colonoscopy (Acute) History of colostomy reversal (Acute) History of diverticulitis (Acute) Heme positive stool (Acute) Anticoagulant long-term use (Acute) Poor historian (Acute) Hypertension (Acute) Renal cell carcinoma (Acute) Hypersomnia (Acute) Snoring (Acute) Neuropathy (Acute) Atherosclerotic cardiovascular disease (Acute) PVD (peripheral vascular disease) (Acute) CAD- denies recent chest pain Snoring but denies DILLAN Marijuana use Past Medical History Medical History Coronary artery disease Hypersomnia Snoring Neuropathy Atherosclerotic cardiovascular disease History of alcohol abuse History of COVID-19 On beta jose at home COPD (chronic obstructive pulmonary disease) On anticoagulant therapy History of atrial fibrillation PVD (peripheral vascular disease) Renal cell carcinoma Hypertension Depression Anxiety Diverticulitis Family History Family history of problems with anesthesia: No Surgical History Surgical History History of intestinal surgery History of kidney surgery H/O cardiac catheterization History of colectomy S/P femoral-femoral bypass surgery History of Problems with Anesthesia: No Social History Social History Household Members: Significant Other Housing: House Are you a primary dialysis patient care technician to a significant other at home: No Do you presently have visiting nurse or other home services: No Alcohol intake: never Patient Tobacco Use Status: Former Tobacco user Tobacco use type: Cigarette Second Hand Smoke Exposure: No Substance Use Type: Marijuana Advance Directives Date on File: 06/09/21 service: Yes Current occupational status: retired Current occupation: right hand dominant Meds Allergies Allergy/AdvReac Type Severity Reaction Status Date / Time No Known Allergies Allergy Verified 06/21/24 15:00 [No Known Allergies*] Active Medications: Current Medications Acetaminophen (Acetaminophen 325 Mg Tablet) 650 mg PO Q6H PRN PRN Reason: Pain, Mild 1-3,fever,headache Atorvastatin Calcium (Atorvastatin Calcium 80 Mg Tablet) 80 mg PO DAILY [facility] Last Admin: 06/21/24 08:31 Dose: 80 mg Calcium Carbonate (Calcium Carbonate 750 Mg Tab.Chew) 750 mg PO Q4H PRN PRN Reason: Heartburn Cilostazol (Cilostazol 50 Mg Tablet) 50 mg PO BID [facility] Clonazepam (Clonazepam 0.5 Mg Tablet) 0.5 mg PO BID [facility] Last Admin: 06/21/24 08:32 Dose: 0.5 mg Docusate Sodium (Docusate Sodium 100 Mg Capsule) 100 mg PO DAILY [facility] Last Admin: 06/21/24 08:32 Dose: 100 mg Dronedarone (Dronedarone Hcl 400 Mg Tablet) 400 mg PO BID [facility] Last Admin: 06/21/24 08:31 Dose: 400 mg Furosemide (Furosemide 40 Mg Tablet) 40 mg PO DAILY [facility]; Protocol Last Admin: 06/21/24 08:32 Dose: 40 mg Hydralazine HCl (Hydralazine Hcl 25 Mg Tablet) 25 mg PO BID [facility]; Protocol Last Admin: 06/21/24 08:32 Dose: 25 mg Hydromorphone HCl (Hydromorphone Hcl 0.5 Mg/0.5 Ml Syringe) 0.5 mg IVPUSH Q4H PRN; Protocol PRN Reason: Pain, Severe (Pain Scale 7-10) Last Admin: 06/21/24 12:50 Dose: 0.5 mg Magnesium Hydroxide (Milk Of Magnesia 30 Ml Oral.Susp) 30 ml PO DAILY PRN PRN Reason: Constipation Melatonin (Melatonin 3 Mg Tablet) 6 mg PO BEDTIME PRN PRN Reason: Insomnia Metoprolol Tartrate (Metoprolol Tartrate 25 Mg Tablet) 25 mg PO DAILY [facility]; Protocol Ondansetron HCl (Ondansetron Hcl 4 Mg/2 Ml Vial) 4 mg IVPUSH Q8H PRN PRN Reason: Nausea and Vomiting Last Admin: 06/20/24 03:49 Dose: 4 mg Oxycodone HCl (Oxycodone Hcl Immed Release 5 Mg Tablet) 5 mg PO Q4H PRN PRN Reason: Pain, Moderate(Pain Scale 4-6) Polyethylene Glycol (Polyethylene Glycol 3350 17 Gm Powd.Pack) 17 gm PO BEDTIME [facility] Quetiapine Fumarate (Quetiapine Fumarate 25 Mg Tablet) 25 mg PO BID [facility] Last Admin: 06/21/24 08:33 Dose: 25 mg Sertraline HCl (Sertraline Hcl 50 Mg Tablet) 50 mg PO DAILY [facility] Last Admin: 06/21/24 08:31 Dose: 50 mg Sodium Chloride (0.9 % Sodium Chloride Flush 3 Ml Syringe) 3 ml IVFLUSH QSHIFT [facility] Last Admin: 06/21/24 08:31 Dose: 3 ml Tamsulosin HCl (Tamsulosin Hcl 0.4 Mg Capsule) 0.4 mg PO DAILY [facility] Last Admin: 06/21/24 08:31 Dose: 0.4 mg Home Medications ?Medication ?Instructions ?Recorded ?Confirmed ?Last Taken ?Type docusate sodium 100 mg capsule 100 mg PO DAILY 08/17/21 06/20/24 06/19/24 History apixaban 5 mg tablet (Eliquis) 5 mg PO BID 01/27/22 06/20/24 06/19/24 History atorvastatin 80 mg tablet 80 mg PO DAILY 01/27/22 06/20/24 06/19/24 History sertraline 50 mg tablet 50 mg PO DAILY 07/06/22 06/20/24 06/19/24 History quetiapine 25 mg tablet 25 mg PO BID 12/28/22 06/20/24 06/19/24 History tamsulosin 0.4 mg capsule 0.4 mg PO DAILY 03/07/23 06/20/24 06/19/24 History cilostazol 50 mg tablet 50 mg PO BID 03/27/23 06/20/24 06/19/24 History clonazepam 0.5 mg tablet 0.5 mg PO BID Anxiety 11/15/23 06/20/24 06/19/24 History dextroamphetamine-amphetamine 7.5 1 tab PO DAILY 03/18/24 06/20/24 06/19/24 History mg tablet melatonin 3 mg capsule 3 mg PO BEDTIME PRN Sleep 04/12/24 06/20/24 Unknown History metoprolol tartrate 25 mg tablet 25 mg PO DAILY 06/20/24 06/20/24 06/19/24 History Exam Height,Weight and Vital Signs: Height 6 ft 1 in Weight 108.862 kg Last Vital Signs Temp 97.6 F 06/21/24 07:27 Pulse 62 06/21/24 07:27 Resp 18 06/21/24 07:27 BP 161/79 H 06/21/24 07:27 Pulse Ox 94 06/21/24 07:27 O2 Del Method Room Air 06/21/24 07:27 Vital Signs Temp Pulse Resp BP Pulse Ox O2 Del Method 06/21/24 15:11 98.8 F 68 16 164/72 H 94 Room Air 06/21/24 07:27 97.6 F 62 18 161/79 H 94 Room Air 06/21/24 04:00 97.8 F 56 16 156/77 H 95 Room Air 06/20/24 18:58 97.5 F 68 18 153/81 H 93 Room Air Pertinent Lab Results Pertinent Lab Results: Laboratory Tests 06/19/24 06/19/24 06/20/24 18:17 19:57 08:35 WBC 11.9 H RBC 4.64 D Hgb 14.3 D Hct 42.9 D MCV 92.5 MCH 30.8 MCHC 33.3 RDW 14.4 Plt Count 238 MPV 9.9 Immature Gran % (Auto) 0.3 Neut % (Auto) 83.9 H Lymph % (Auto) 7.1 L [place] % (Auto) 8.1 Eos % (Auto) 0.2 Baso % (Auto) 0.4 Lymph # (Auto) 0.9 L [place] # (Auto) 1.0 Eos # (Auto) 0.0 Baso # (Auto) 0.1 Abs Immat Gran (auto) 0.04 H Absolute Neuts (auto) 10.0 H Absolute Nucleated RBC 0.000 Nucleated RBC % (auto) 0.0 PT 16.0 H INR 1.4 H Sodium 142 Potassium 3.8 Chloride 109 H Carbon Dioxide 23 Anion Gap 14 BUN 13 Creatinine 1.11 Estim Creat Clear Calc 72.1 Estimated GFR > 60 Random Glucose 92 Calcium 9.1 Total Bilirubin 0.5 AST 27 ALT 14 Alkaline Phosphatase 119 H Total Protein 7.7 Albumin 4.1 Lipase 17 Blood Type O Positive Antibody Screen NEGATIVE 06/20/24 06/20/24 06/21/24 09:31 09:32 05:11 WBC 10.0 9.1 RBC 4.55 L 4.55 L Hgb 14.2 14.2 Hct 42.2 42.4 MCV 92.7 93.2 MCH 31.2 31.2 MCHC 33.6 33.5 RDW 14.5 14.6 Plt Count 238 237 MPV 10.0 10.6 Immature Gran % (Auto) 0.2 Neut % (Auto) 78.1 H Lymph % (Auto) 8.1 L [place] % (Auto) 12.6 H Eos % (Auto) 0.5 Baso % (Auto) 0.5 Lymph # (Auto) 0.8 L [place] # (Auto) 1.3 H Eos # (Auto) 0.1 Baso # (Auto) 0.1 Abs Immat Gran (auto) 0.02 Absolute Neuts (auto) 7.8 Absolute Nucleated RBC 0.000 0.000 Nucleated RBC % (auto) 0.0 0.0 PT INR Sodium 139 139 Potassium 3.5 3.6 Chloride 109 H 108 Carbon Dioxide 22 23 Anion Gap 12 12 BUN 12 13 Creatinine 1.05 1.03 Estim Creat Clear Calc 76.2 77.7 Estimated GFR > 60 > 60 Random Glucose 114 100 Calcium 8.7 8.7 Total Bilirubin AST ALT Alkaline Phosphatase Total Protein Albumin Lipase Blood Type Antibody Screen Narrative Narrative: Cardiac consult 06/20/24: Last echocardiogram from 2021,-LVEF 55-60%. Cardiac catheterization 05/2022-status post proximal LAD drug-eluting stent. At that time, 100% ostial diagonal stenosis, mid RCA, RPDA 50% stenosis. Initial EKG on admission with possible atrial flutter but then in sinus rhythm. Clinically, he has got no cardiac symptoms currently or recently. May proceed with planned shoulder surgery. Intermediate cardiac risk. Continue Multaq and metoprolol without interruption. Resume Eliquis as soon able after surgery. Airway Mallampati Class: III TM Dist: >3cm Neck ROM: Full Loose/Missing/Broken Teeth: Yes (Edentulous) Heart: RRR Lungs: CTAB Assessment and Plan Assessment Anesthesia Assessment: Anesthesia Plan Discussed and Chart Reviewed Final Anesthetic Review Family History of Problems with Anesthesia: No History of Problems with Anesthesia: No NPO: Yes ASA Class: III and Emergency Final Preanesthetic Review: No Changes in Pt Med Stat, Meds/Allgs Chart Reviewed, Consent Obtained/Reviewed and Anes Risks/Benef Reviewed Patient Risk: Intermediate Procedure Risk: Low Assessment/Block/Sedation in SS: Assess/Block/Sedation-SS Anesthetic Plan Anesthetic Plan: GA and Regional Block (Left interscalene brachial plexus block) Disposition: Standard PACU
--- NOTE | 2024-06-21 15:41 | PC.NURSE ---
Patient arrived to preop. One #20 upper arm, right, PRN IV noted. Site asymptomatic, flushed with no issues, positive blood return.
[2024-06-21] MEDS: Lactated Ringers 1,000 ML 50 ML IVCONT (15:48)
[2024-06-21] MEDS: ceFAZolin Sodium/Dextrose,Iso 2 GM/50 ML PIGGYBACK IV (15:50)
--- NOTE | 2024-06-21 17:56 | PM.OP ---
Brief Operative Note Date of Service: 06/21/24 Pre-op diagnosis: Left shoulder fracture/dislocation Post-op diagnosis: same Procedure: Arthroscopic bankhart repair with closed reduction Implants: Butt and Nephcorin Micr-raptor x 2 Surgeon: Royce Kothari MD Anesthesia: GETA and regional Was an Stave Grader used for this Procedure?: Yes Stave Grader: Tree Hand Estimated blood loss (mL): 2 IV fluids (mL): 1,200 Pathology: none sent Condition: stable Disposition: PACU
[2024-06-21] MEDS: polyethylene glycoL 3350 17 GM POWD.PACK PO (20:18)
--- NOTE | 2024-06-21 22:31 | PC.NURSE ---
Patient arrived to unit at change of shift 1900 from pacu. Patient alert and oriented , denies pain, left arm in sling, able to wiggle fingers. BP elevated 175/75, hr 75 bedtime bp med administered. Dr. Galvan made aware. BP rechecked a hour later, bp 136/72, hr 77. patient continues to deny pain or discomfort.
[2024-06-22] MEDS: Melatonin 3 MG TABLET 6 MG PO ×2 (00:08→22:16)
[2024-06-22] MEDS: 0.9 % Sodium Chloride Flush 3 ML SYRINGE IVFLUSH ×4 (00:10→22:48)
[2024-06-22] MEDS: ceFAZolin Sodium/Dextrose,Iso 2 GM/50 ML PIGGYBACK IV (02:00)
[2024-06-22 04:00] VITALS: BP 140/67; PULSE 75; RESP 18; TEMP 36.8; O2SAT 92
[2024-06-22] MEDS: HYDROmorphone HCl 0.5 MG/0.5 ML SYRINGE IVPUSH ×2 (04:35→10:21)
[2024-06-22 07:41] VITALS: BP 147/65; PULSE 65; RESP 18; TEMP 36.1; O2SAT 95
[2024-06-22] MEDS: oxyCODONE HCl Immed Release 5 MG TABLET PO (08:15)
[2024-06-22] MEDS: Metoprolol Tartrate 25 MG TABLET PO (08:15)
[2024-06-22] MEDS: Dronedarone HCl 400 MG TABLET PO ×2 (08:15→22:26)
[2024-06-22] MEDS: Tamsulosin HCL 0.4 MG CAPSULE PO (08:17)
[2024-06-22] MEDS: Sertraline HCL 50 MG TABLET PO (08:18)
[2024-06-22] MEDS: hydrALAZINE HCl 25 MG TABLET PO ×2 (08:18→22:26)
[2024-06-22] MEDS: Furosemide 40 MG TABLET PO (08:18)
[2024-06-22] MEDS: QUEtiapine Fumarate 25 MG TABLET PO ×2 (08:18→22:28)
[2024-06-22] MEDS: Atorvastatin Calcium 80 MG TABLET PO (08:18)
[2024-06-22] MEDS: Docusate Sodium 100 MG CAPSULE PO (08:18)
[2024-06-22] MEDS: clonazePAM 0.5 MG TABLET PO ×2 (08:18→22:26)
--- NOTE | 2024-06-22 09:40 | PM.PNORT ---
Subjective Subjective Date of Service: 06/22/24 Interval history: Postop day 1 status post closed reduction and arthroscopic Bankart repair of left shoulder Patient resting comfortably in bed this morning Sling in place Pain significantly improved from prior to surgery No acute events overnight No other acute complaints or concerns at this time Physical Exam Vital Signs: Vital Signs: Last Vital Signs Temp 96.9 F 06/22/24 07:41 Pulse 65 06/22/24 07:41 Resp 18 06/22/24 07:41 BP 147/65 H 06/22/24 07:41 Pulse Ox 95 06/22/24 07:41 O2 Del Method Room Air 06/22/24 07:41 O2 Flow Rate 2 06/21/24 18:36 BMI result Body Mass Index 31.7 Extrem: Other: Dressing on left shoulder clean, dry, intact No evidence of surrounding erythema, ecchymosis No evidence of infection Patient is able to flex and extend the digits of the left hand without difficulty Compartments soft, nontender Distal sensation intact Capillary refill brisk Procedures Date of Service Date of Service: 06/22/24 Progress Note: A&P Assessment and plan (1) Anterior dislocation of humerus: Status: Acute (2) Glenoid fracture of shoulder: Status: Acute Plan 1. Status post closed reduction and arthroscopic Bankart lesion repair of left shoulder DOS 06/21/2024 Patient is to remain in sling with abduction pillow in place at all times Dressing to remain clean, dry, intact, no showers, sponge bathing only due to sling Continue with pain management per Medicine Patient can restart home Eliquis today Continue with all other recommendations per Medicine Time Spent With Patient Time: Total time managing care of this patient today ____ minutes. Quality Stroke Does the patient have a stroke diagnosis?: No VTE Prior VTE?: No VTE Risk Level:: Medical - moderate - high VTE Device Contraindication: N/A - Device Ordered VTE Drug Contraindication: Treatment Not Indicated
--- NOTE | 2024-06-22 10:04 | HO.POSTANES ---
Post Anesthesia Evaluation Post Anesthesia Evaluation Date of Service: 06/22/24 Vital Signs: Vital Signs Temp Pulse Resp BP Pulse Ox O2 Del Method 06/22/24 07:41 96.9 F 65 18 147/65 H 95 Room Air 06/22/24 04:00 98.2 F 75 18 140/67 H 92 Anesthesia: General Endotracheal-GETA Mental Status: Awake Pain Control: Satisfactory Nausea/Vomiting: None Hydration: Adequate Anesthesia-Related Issues: No Anes. Related Issues
[2024-06-22 10:18] LABS: Hemoglobin 13.3 g/dl (14.0-18.0); Mean Corpuscular HGB Conc 32.4 g/dl (31.0-36.0); Mean Corpuscular Hemoglobin 30.8 pg (27.0-33.0); Mean Corpuscular Volume 94.9 fL (80.0-98.0); Mean Platelet Volume 10.5 fL (9.4-12.4); Platelet Count 228 X10*3/uL (160-400); Red Blood Count 4.32 X10*6/uL (4.60-5.80); Red Cell Distribution Width 14.5 % (11.0-16.0); White Blood Count 11.1 X10*3/uL (4.8-10.8)
[2024-06-22 10:27] LABS: Anion Gap 14 (12-20); Blood Urea Nitrogen 15 mg/dL (9-16); Calcium 8.8 mg/dL (8.4-10.2); Carbon Dioxide 25 mmol/L (22-29); Chloride 107 mmol/L (96-108); Creatinine Clr Calc Pharmacy 84.2; Estimated Glomerular Filt Rate > 60; Glucose Random 107 mg/dL (60-115); Sodium 142 mmol/L (135-145)
--- NOTE | 2024-06-22 12:24 | HO.PM.IMPN ---
Subjective Subjective Date of Service: 06/22/24 Interval History: seen and examined this morning follow up for left humerus/scapula fracture s/p surgical repair Pain significantly improved today Review of Systems Review of Systems: Yes all other systems are reviewed and are negative Constitutional Constitutional: Denies chills and Denies fever(s) Cardiovascular Cardiovascular: Denies chest pain, Denies palpitations and Denies dyspnea Respiratory Respiratory: Denies cough and Denies dyspnea Endocrine Endocrine: Denies palpitations Physical Exam Vital Signs: Vital Signs: Last Vital Signs Temp 96.9 F 06/22/24 07:41 Pulse 65 06/22/24 07:41 Resp 18 06/22/24 07:41 BP 147/65 H 06/22/24 07:41 Pulse Ox 95 06/22/24 07:41 O2 Del Method Room Air 06/22/24 07:41 O2 Flow Rate 2 06/21/24 18:36 BMI result Body Mass Index 31.7 Const: General: cooperative, alert and awake Nutritional Appearance: overweight Orientation/consciousness: patient oriented x3 Resp: Effort & Inspection: normal respiratory effort, able to speak in complete sentences, no respiratory distress and no use of accessory muscles Auscultation: clear to auscultation bilaterally Cardio: Rate: regular rate GI: Inspection: No distended Palpation (GI): Soft to palpation Neuro: General: patient oriented x3 Extrem: Other: left arm in sling Objective Data Active Medications Acetaminophen (Acetaminophen 325 Mg Tablet) 650 mg PO Q6H PRN PRN Reason: Pain, Mild 1-3,fever,headache Atorvastatin Calcium (Atorvastatin Calcium 80 Mg Tablet) 80 mg PO DAILY [facility] Last Admin: 06/22/24 08:18 Dose: 80 mg Documented By: ANGELA Calcium Carbonate (Calcium Carbonate 750 Mg Tab.Chew) 750 mg PO Q4H PRN PRN Reason: Heartburn Cilostazol (Cilostazol 50 Mg Tablet) 50 mg PO BID [facility] Clonazepam (Clonazepam 0.5 Mg Tablet) 0.5 mg PO BID [facility] Last Admin: 06/22/24 08:18 Dose: 0.5 mg Documented By: ANGELA Docusate Sodium (Docusate Sodium 100 Mg Capsule) 100 mg PO DAILY [facility] Last Admin: 06/22/24 08:18 Dose: 100 mg Documented By: ANGELA Dronedarone (Dronedarone Hcl 400 Mg Tablet) 400 mg PO BID [facility] Last Admin: 06/22/24 08:15 Dose: 400 mg Documented By: ANGELA Furosemide (Furosemide 40 Mg Tablet) 40 mg PO DAILY [facility]; Protocol Last Admin: 06/22/24 08:18 Dose: 40 mg Documented By: ANGELA Hydralazine HCl (Hydralazine Hcl 25 Mg Tablet) 25 mg PO BID [facility]; Protocol Last Admin: 06/22/24 08:18 Dose: 25 mg Documented By: ANGELA Hydromorphone HCl (Hydromorphone Hcl 0.5 Mg/0.5 Ml Syringe) 0.25 mg IVPUSH Q4H PRN; Protocol PRN Reason: Pain, Severe (Pain Scale 7-10) Magnesium Hydroxide (Milk Of Magnesia 30 Ml Oral.Susp) 30 ml PO DAILY PRN PRN Reason: Constipation Melatonin (Melatonin 3 Mg Tablet) 6 mg PO BEDTIME PRN PRN Reason: Insomnia Last Admin: 06/22/24 00:08 Dose: 6 mg Documented By: SANDRA Metoprolol Tartrate (Metoprolol Tartrate 25 Mg Tablet) 25 mg PO DAILY [facility]; Protocol Last Admin: 06/22/24 08:15 Dose: 25 mg Documented By: ANGELA Ondansetron HCl (Ondansetron Hcl 4 Mg/2 Ml Vial) 4 mg IVPUSH Q8H PRN PRN Reason: Nausea and Vomiting Last Admin: 06/20/24 03:49 Dose: 4 mg Documented By: SOHEILA-CARMELLA Oxycodone HCl (Oxycodone Hcl Immed Release 5 Mg Tablet) 5 mg PO Q4H PRN PRN Reason: Pain, Moderate(Pain Scale 4-6) Last Admin: 06/22/24 08:15 Dose: 5 mg Documented By: ANGELA Polyethylene Glycol (Polyethylene Glycol 3350 17 Gm Powd.Pack) 17 gm PO BEDTIME [facility] Last Admin: 06/21/24 20:18 Dose: 17 gm Documented By: SANDRA Quetiapine Fumarate (Quetiapine Fumarate 25 Mg Tablet) 25 mg PO BID [facility] Last Admin: 06/22/24 08:18 Dose: 25 mg Documented By: ANGELA Sertraline HCl (Sertraline Hcl 50 Mg Tablet) 50 mg PO DAILY [facility] Last Admin: 06/22/24 08:18 Dose: 50 mg Documented By: ANGELA Sodium Chloride (0.9 % Sodium Chloride Flush 3 Ml Syringe) 3 ml IVFLUSH QSHIFT [facility] Last Admin: 06/22/24 08:17 Dose: 3 ml Documented By: ANGELA Tamsulosin HCl (Tamsulosin Hcl 0.4 Mg Capsule) 0.4 mg PO DAILY [facility] Last Admin: 06/22/24 08:17 Dose: 0.4 mg Documented By: ANGELA Labs 06/22/24 09:12 06/22/24 09:12 Labs: Laboratory Results - last 24 hr 06/22/24 09:12 MCV 94.9 MCH 30.8 MCHC 32.4 RDW 14.5 Plt Count 228 MPV 10.5 Absolute Nucleated RBC 0.000 Nucleated RBC % (auto) 0.0 Anion Gap 14 Estim Creat Clear Calc 84.2 Estimated GFR > 60 Random Glucose 107 Calcium 8.8 Assessment and Plan (1) Glenoid fracture of shoulder: Status: Acute Plan This is a 79-year-old male with pertinent history of CKD stage 3, coronary artery disease, paroxysmal atrial flutter on Eliquis, mood disorder, mixed hyperlipidemia, BPH, hypertension who was sent to the emergency department for evaluation after a fall Acute dislocation of left glenohumeral joint with impaction fracture of the humerus, scapula, corocoid process Due to mechanical fall POD 1 s/p post closed reduction and arthroscopic Bankart repair of left shoulder ortho following - ok to resume Eliquis, Patient is to remain in sling with abduction pillow in place at all times; no showers, sponge bathing only due to sling pain management, wean IV narcotics in preparation for discharge Paroxysmal atrial flutter: continue Multaq and metoprolol Resume Eliquis as above CKD stage III: Creatinine at baseline Hypertension: BP better controlled Continue baseline metoprolol, hydralazine Coronary artery disease: continue statin, cilostazol Mood disorder: Continue home med BPH: continue Flomax DVT prophylaxis: Eliquis Full code Requires ongoing inpatient stay for pain management, safe disposition, postoperative care Quality Stroke Does the patient have a stroke diagnosis?: No VTE Prior VTE?: No VTE Risk Level:: Medical - moderate - high VTE Device Contraindication: N/A - Device Ordered VTE Drug Contraindication: Treatment Not Indicated
[2024-06-22] MEDS: oxyCODONE HCl Immed Release 5 MG TABLET 10 MG PO ×3 (13:58→23:42)
--- NOTE | 2024-06-22 14:27 | PM.DS ---
DS: Providers Provider Date of Service: 06/23/24 <COURT Broussard - Last Filed: 06/23/24 16:45> 06/25/24 <Tania Bernabe NP - Last Filed: 06/25/24 09:55> Date of admission: 06/19/24 22:19 <COURT Broussard - Last Filed: 06/23/24 16:45> Date of discharge: 06/23/24 <COURT Broussard - Last Filed: 06/23/24 16:45> 06/25/24 <Tania Bernabe NP - Last Filed: 06/25/24 09:55> Primary care physician: Sesar Pereyra MD <COURT Broussard - Last Filed: 06/23/24 16:45> Consults: 06/19/24 22:19 Consult to Orthopedics Routine Consulting Provider: [facility] Reason for consultation: humerus fracture 06/20/24 11:48 Consult to Cardiology Routine Consulting Provider: [facility] Reason for consultation: preop eval; planned surgery 06/21 Has provider been notified: No <COURT Broussard - Last Filed: 06/23/24 16:45> Discharging clinician: Lauren Manuel <COURT Broussard - Last Filed: 06/23/24 16:45> Tania Bernabe <Tania Bernabe NP - Last Filed: 06/25/24 09:55> DS: Diagnosis Discharge Diagnosis (1) Glenoid fracture of shoulder: Status: Acute <COURT Broussard - Last Filed: 06/23/24 16:45> DS: Summary Hospital Course Hospital Course: From H&P on the day of admission This is a 79-year-old male with pertinent history of CKD stage 3, coronary artery disease, paroxysmal atrial flutter on Eliquis, mood disorder, mixed hyperlipidemia, BPH, hypertension who was sent to the emergency department for evaluation after a fall. Patient states he slipped on ice near his car and fell on his left arm. Did not lose consciousness prior to the fall. No dizziness or lightheadedness prior to the fall. No chest pain or palpitations. No jerking movement of extremities. No tongue bite, urinary or bowel incontinence. Patient did not hit his head. He has been having left shoulder pain since the fall specially with movement. Patient was seen at [facility] where x-ray showed a possible dislocation and fracture and he was sent to the ER. No fever, chills, chest pain, palpitations, shortness of breath, abdominal pain, changes in urinary or bowel habits. In the emergency department, imaging with acute dislocation of glenohumeral joint and humerus fracture. Orthopedic surgery was consulted who requested admission to medicine team Acute dislocation of left glenohumeral joint with impaction fracture of the humerus, scapula, corocoid process Due to mechanical fall. Seen in consultation by Orthopedic surgery and underwent closed reduction and arthroscopic Bankart repair of left shoulder on 06/21. Resumed on Eliquis. Instructions to remain in sling with abduction pillow in place at all times; no showers, sponge bathing only due to sling. Outpatient follow up with orthopedic surgery. Postoperatively pain control was difficult. He was weaned off of IV narcotics and pain has been controlled with PO oxycodone and tylenol. Significant other was concerned about patient returning home. He was evaluated by Physical therapy who recommended home with services. The patient was adamant that he did not want to go to rehab. Patient will be discharged home with home PT/OT services and other o/p services <COURT Broussard - Last Filed: 06/23/24 16:45> Time Attestation Discharge Coordination Time (in mins): 42 <Tania Bernabe NP - Last Filed: 06/25/24 09:55> Quality: Safe Use of Opioids Does Pt have an Active Cancer Diagnosis on the Problem List?: No <COURT Broussard - Last Filed: 06/23/24 16:45> Quality: Stroke Does the patient have a stroke diagnosis?: No <COURT Broussard - Last Filed: 06/23/24 16:45> Physical Exam Vital Signs: Vital Signs: Last Vital Signs Temp 96.9 F 06/22/24 07:41 Pulse 65 06/22/24 07:41 Resp 18 06/22/24 07:41 BP 147/65 H 06/22/24 07:41 Pulse Ox 95 06/22/24 07:41 O2 Del Method Room Air 06/22/24 07:41 O2 Flow Rate 2 06/21/24 18:36 BMI result Body Mass Index 31.7 <COURT Broussard - Last Filed: 06/23/24 16:45> Appearing in no acute distress head is normocephalic atraumatic eyes pupils are PERRLA sclera is anicteric mouth throat mucous membranes are intact and moist neck is supple no lymphadenopathy, no JVD noted lung sounds are clear to auscultation heart regular rate rhythm, clear S1, S2 positive bowel sounds, abdomen is soft, nontender neuro patient is alert x3, no focal deficits Sling to left arm <Tania Bernabe NP - Last Filed: 06/25/24 09:55> DS: Data Data Completed and Pending Labs on day of discharge: Laboratory Results - last 24 hr 06/22/24 09:12 WBC 11.1 H RBC 4.32 L Hgb 13.3 L Hct 41.0 L MCV 94.9 MCH 30.8 MCHC 32.4 RDW 14.5 Plt Count 228 MPV 10.5 Absolute Nucleated RBC 0.000 Nucleated RBC % (auto) 0.0 Sodium 142 Potassium 4.0 Chloride 107 Carbon Dioxide 25 Anion Gap 14 BUN 15 Creatinine 0.95 Estim Creat Clear Calc 84.2 Estimated GFR > 60 Random Glucose 107 Calcium 8.8 <COURT Broussard - Last Filed: 06/23/24 16:45> Discharge Plan Discharge Anticipated Discharge Date/Time: 06/25/24 09:52 <COURT Broussard - Last Filed: 06/23/24 16:45> Patient Disposition: Home Health Service <COURT Broussard - Last Filed: 06/23/24 16:45> Discharge Diagnosis: mechanical fall resulting in anterior dislocation of humerus/glenoid fracture of shoulder <COURT Broussard - Last Filed: 06/23/24 16:45> mechanical fall resulting in anterior dislocation of humerus/glenoid fracture of shoulder <Tania Bernabe NP - Last Filed: 06/25/24 09:55> Referrals: [facility] [Outside] - 1 Week Sesar Pereyra MD [Primary Care Provider] - 1 Week Regine Falcon PA-C [Physician Training And Development Officer] - 1 Week (07/05/24 10:00 [facility] Regine Falcon PA-C) <COURT Broussard - Last Filed: 06/23/24 16:45> Discharge Medications: New polyethylene glycol 3350 17 gram Powder In Packet 17 g PO BEDTIME 30 Days Qty: 30 0RF oxycodone 5 mg tablet 5 mg PO Q8H PRN (Reason: pain) Qty: 15 0RF Rx Instructions: Partial Fill upon patient request. Continued cilostazol 50 mg tablet 50 mg PO BID furosemide 40 mg tablet 40 mg PO DAILY Qty: 90 3RF gabapentin 100 mg capsule 100 - 300 mg PO BEDTIME 30 Days Qty: 90 6RF atorvastatin 80 mg tablet 80 mg PO DAILY Eliquis 5 mg tablet 5 mg PO BID sertraline 50 mg tablet 50 mg PO DAILY metoprolol tartrate 25 mg tablet 25 mg PO DAILY Protocol: Hold for SBP/HR < HOLD for SBP < : 90 HOLD for HR < : 60 dextroamphetamine-amphetamine 7.5 mg tablet 1 tab PO DAILY Multaq 400 mg Tablet 400 mg PO BID Qty: 180 0RF docusate sodium 100 mg capsule 100 mg PO DAILY quetiapine 25 mg tablet 25 mg PO BID clonazepam 0.5 mg tablet 0.5 mg PO BID hydralazine 25 mg tablet 25 mg PO BID 30 Days Qty: 60 4RF Rx Instructions: New med for BP tamsulosin 0.4 mg capsule 0.4 mg PO DAILY melatonin 3 mg capsule 3 mg PO BEDTIME PRN (Reason: Sleep) <COURT Broussard - Last Filed: 06/23/24 16:45> Discharge Orders: Discharge Order (Routine); Ordered 06/25/24 Ordered By: Tania Bernabe <COURT Broussard - Last Filed: 06/23/24 16:45> Diet: Advance to usual diet <COURT Broussard - Last Filed: 06/23/24 16:45> Advance to usual diet <Tania Bernabe NP - Last Filed: 06/25/24 09:55> Activity on Discharge: As tolerated <COURT Broussard Last Filed: 06/23/24 16:45> As tolerated <Tania Bernabe NP - Last Filed: 06/25/24 09:55> Stand Alone Forms: Patient Portal Discharge page <COURT Broussard - Last Filed: 06/23/24 16:45> Print Language: Urdu <COURT Broussard - Last Filed: 06/23/24 16:45> Activity Restrictions/Additional Instructions: Remain in sling with abduction pillow in place at all times Keep dressing clean,dry, intact No showering, sponge bathing only <COURT Broussard - Last Filed: 06/23/24 16:45> Care Plan Goals: see below <COURT Broussard - Last Filed: 06/23/24 16:45> Health Concerns: acute fracture of shoulder with dislocation s/p close reduction and arthroscopic Bankart lesion repair <COURT Broussard - Last Filed: 06/23/24 16:45> Plan of Treatment: Pain control with oxycodone and tylenol as needed Outpatient follow-up with Orthopedic surgery Continue baseline medications as prescribed Discharged home with home physical therapy <COURT Broussard - Last Filed: 06/23/24 16:45> Assessment: see discharge summary <COURT Broussard - Last Filed: 06/23/24 16:45>
--- NOTE | 2024-06-22 14:33 | P.F2F_ITS ---
Service Date Service Date: 06/22/24 Encounter Date of encounter: 06/23/24 Reasons for Services Overseeing Care: Sesar Pereyra Homebound: Leaving the home is medically contraindicated at this time without the asist of a device and/or another person due th the listed conditions above and below. Reason homebound: poor balance / fall risk and unable to drive Certification: Based on the above findings, I certify that this patient is confined to the home and needs intermittent long term care, physical therapy and/or speech therapy, or continues to need occupational therapy. The patient is under my care, and I have initiated the establishment of the plan of care. The patient will be followed by a physician who will periodically review the plan of care. Time Spent With Patient Time: Total time managing care of this patient today ____ minutes.
[2024-06-22 14:48] VITALS: BP 167/78; PULSE 62; O2SAT 96
[2024-06-22 15:14] VITALS: BP 167/78; PULSE 62; RESP 18; TEMP 36.6; O2SAT 96
--- NOTE | 2024-06-22 15:39 | MHC.CM.PN ---
CM MET WITH PT TO DISCUSS THE DCP PT REPORTS HE WILL BE DISCHARGING HOME AND HAS NO INTEREST IN REHAB HE IS AGREEABLE TO [facility] HE SAYS HIS S/O WILL TRANSPORT HE IS AWARE HE IS EXPECTED TO DC TOMORROW
[2024-06-22 19:12] VITALS: BP 148/81; PULSE 65; RESP 18; TEMP 36.4; O2SAT 94
[2024-06-22 22:26] VITALS: BP 148/81
[2024-06-22] MEDS: cilostazoL 50 MG TABLET PO (22:26)
[2024-06-22] MEDS: Apixaban 5 MG TABLET PO (22:26)
[2024-06-22] MEDS: polyethylene glycoL 3350 17 GM POWD.PACK PO (22:27)
[2024-06-22] MEDS: HYDROmorphone HCl 0.5 MG/0.5 ML SYRINGE 0.25 MG IVPUSH (22:48)
[2024-06-23] MEDS: HYDROmorphone HCl 0.5 MG/0.5 ML SYRINGE IVPUSH (01:37)
[2024-06-23 03:25] VITALS: BP 159/73; PULSE 59; RESP 17; TEMP 36.2; O2SAT 95
[2024-06-23] MEDS: oxyCODONE HCl Immed Release 5 MG TABLET 10 MG PO ×5 (04:31→20:36)
[2024-06-23 08:00] VITALS: BP 163/76; PULSE 70; RESP 16; TEMP 37.2; O2SAT 91
[2024-06-23] MEDS: hydrALAZINE HCl 25 MG TABLET PO ×2 (08:32→20:37)
[2024-06-23] MEDS: cilostazoL 50 MG TABLET PO ×2 (08:32→20:37)
[2024-06-23] MEDS: Dronedarone HCl 400 MG TABLET PO ×2 (08:32→20:37)
[2024-06-23] MEDS: Docusate Sodium 100 MG CAPSULE PO (08:33)
[2024-06-23] MEDS: Metoprolol Tartrate 25 MG TABLET PO (08:33)
[2024-06-23] MEDS: Furosemide 40 MG TABLET PO (08:33)
[2024-06-23] MEDS: Atorvastatin Calcium 80 MG TABLET PO (08:33)
[2024-06-23] MEDS: Tamsulosin HCL 0.4 MG CAPSULE PO (08:33)
[2024-06-23] MEDS: clonazePAM 0.5 MG TABLET PO ×2 (08:33→20:38)
[2024-06-23] MEDS: Apixaban 5 MG TABLET PO ×2 (08:33→20:38)
[2024-06-23] MEDS: 0.9 % Sodium Chloride Flush 3 ML SYRINGE IVFLUSH ×3 (08:34→20:39)
[2024-06-23] MEDS: QUEtiapine Fumarate 25 MG TABLET PO ×2 (08:34→20:37)
[2024-06-23] MEDS: Sertraline HCL 50 MG TABLET PO (08:34)
--- NOTE | 2024-06-23 10:45 | PM.PNORT ---
Subjective Subjective Date of Service: 06/23/24 Interval history: Postop day 2 status post closed reduction and arthroscopic Bankart repair of left shoulder Patient resting comfortably in bed this morning Sling in place Patient did have significant pain increase overnight with no trauma, reports that this is improved this morning with pain medication No other acute complaints or concerns at this time Physical Exam Vital Signs: Vital Signs: Last Vital Signs Temp 98.9 F 06/23/24 08:00 Pulse 70 06/23/24 08:00 Resp 16 06/23/24 08:00 BP 163/76 H 06/23/24 08:00 Pulse Ox 91 L 06/23/24 08:00 O2 Del Method Room Air 06/23/24 08:00 O2 Flow Rate 2 06/21/24 18:36 BMI result Body Mass Index 31.7 Extrem: Other: Dressing on left shoulder clean, dry, intact No evidence of surrounding erythema, ecchymosis No evidence of infection Patient is able to flex and extend the digits of the left hand without difficulty Compartments soft, nontender Distal sensation intact Capillary refill brisk Procedures Date of Service Date of Service: 06/23/24 Progress Note: A&P Assessment and plan (1) Anterior dislocation of humerus: Status: Acute (2) Glenoid fracture of shoulder: Status: Acute Plan 1. Status post closed reduction and arthroscopic Bankart lesion repair of left shoulder DOS 06/21/2024 Patient is to remain in sling with abduction pillow in place at all times Dressing to remain clean, dry, intact, no showers, sponge bathing only due to sling Continue with pain management per Medicine Patient can restart home Eliquis today Continue with all other recommendations per Medicine Time Spent With Patient Time: Total time managing care of this patient today ____ minutes. Quality Stroke Does the patient have a stroke diagnosis?: No VTE Prior VTE?: No VTE Risk Level:: Medical - moderate - high VTE Device Contraindication: N/A - Device Ordered VTE Drug Contraindication: Treatment Not Indicated
--- NOTE | 2024-06-23 12:26 | PC.NURSE ---
patient refuses to use Tylenol for pain
[2024-06-23 12:34] VITALS: O2SAT 92
--- NOTE | 2024-06-23 14:07 | P.PNIM_ITS ---
Subjective Subjective Date of Service: 06/23/24 Interval History: seen and examined this morning follow up for shoulder fracture s/p surgery does not want to go to rehab; requesting pain meds every 4 hours Review of Systems Review of Systems: Yes all other systems are reviewed and are negative Constitutional Constitutional: Denies chills and Denies fever(s) Physical Exam 2 Vital Signs: Vital Signs: Last Vital Signs Temp 98.9 F 06/23/24 08:00 Pulse 70 06/23/24 08:00 Resp 16 06/23/24 08:00 BP 163/76 H 06/23/24 08:00 Pulse Ox 92 06/23/24 12:34 O2 Del Method Room Air 06/23/24 12:34 O2 Flow Rate 2 06/21/24 18:36 BMI result Body Mass Index 31.7 Const: General: cooperative, alert and awake Nutritional Appearance: o verweight Orientation/consciousness: patient oriented x3 Resp: Effort & Inspection: normal respiratory effort, able to speak in complete sentences, no respiratory distress and no use of accessory muscles A uscultation: clear to auscultation bilaterally Cardio: Rate: regular rate GI: Inspection: No distended Palpation (GI): Soft to palpation Neuro: General: patient oriented x3 Extrem: Other: left arm in sling Objective Data Active Medications Acetaminophen (Acetaminophen 325 Mg Tablet) 650 mg PO Q6H PRN PRN Reason: Pain, Mild 1-3,fever,headache Apixaban (Apixaban 5 Mg Tablet) 5 mg PO BID [facility] Last Admin: 06/23/24 08:33 Dose: 5 mg Documented By: ANGELA Atorvastatin Calcium (Atorvastatin Calcium 80 Mg Tablet) 80 mg PO DAILY [facility] Last Admin: 06/23/24 08:33 Dose: 80 mg Documented By: ANGELA Calcium Carbonate (Calcium Carbonate 750 Mg Tab.Chew) 750 mg PO Q4H PRN PRN Reason: Heartburn Cilostazol (Cilostazol 50 Mg Tablet) 50 mg PO BID [facility] Last Admin: 06/23/24 08:32 Dose: 50 mg Documented By: ANGELA Clonazepam (Clonazepam 0.5 Mg Tablet) 0.5 mg PO BID [facility] Last Admin: 06/23/24 08:33 Dose: 0.5 mg Documented By: ANGELA Docusate Sodium (Docusate Sodium 100 Mg Capsule) 100 mg PO DAILY [facility] Last Admin: 06/23/24 08:33 Dose: 100 mg Documented By: ANGELA Dronedarone (Dronedarone Hcl 400 Mg Tablet) 400 mg PO BID [facility] Last Admin: 06/23/24 08:32 Dose: 400 mg Documented By: ANGELA Furosemide (Furosemide 40 Mg Tablet) 40 mg PO DAILY [facility]; Protocol Last Admin: 06/23/24 08:33 Dose: 40 mg Documented By: ANGELA Hydralazine HCl (Hydralazine Hcl 25 Mg Tablet) 25 mg PO BID [facility]; Protocol Last Admin: 06/23/24 08:32 Dose: 25 mg Documented By: ANGELA Magnesium Hydroxide (Milk Of Magnesia 30 Ml Oral.Susp) 30 ml PO DAILY PRN PRN Reason: Constipation Melatonin (Melatonin 3 Mg Tablet) 6 mg PO BEDTIME PRN PRN Reason: Insomnia Last Admin: 06/22/24 22:16 Dose: 6 mg Documented By: JEFF Metoprolol Tartrate (Metoprolol Tartrate 25 Mg Tablet) 25 mg PO DAILY [facility]; Protocol Last Admin: 06/23/24 08:33 Dose: 25 mg Documented By: ANGELA Ondansetron HCl (Ondansetron Hcl 4 Mg/2 Ml Vial) 4 mg IVPUSH Q8H PRN PRN Reason: Nausea and Vomiting Last Admin: 06/20/24 03:49 Dose: 4 mg Documented By: SOHEILA-CARMELLA Oxycodone HCl (Oxycodone Hcl Immed Release 5 Mg Tablet) 10 mg PO Q4H PRN PRN Reason: Pain, Moderate(Pain Scale 4-6) Last Admin: 06/23/24 12:31 Dose: 10 mg Documented By: ANGELA Polyethylene Glycol (Polyethylene Glycol 3350 17 Gm Powd.Pack) 17 gm PO BEDTIME [facility] Last Admin: 06/22/24 22:27 Dose: 17 gm Documented By: JEFF Quetiapine Fumarate (Quetiapine Fumarate 25 Mg Tablet) 25 mg PO BID [facility] Last Admin: 06/23/24 08:34 Dose: 25 mg Documented By: ANGELA Sertraline HCl (Sertraline Hcl 50 Mg Tablet) 50 mg PO DAILY [facility] Last Admin: 06/23/24 08:34 Dose: 50 mg Documented By: ANGELA Sodium Chloride (0.9 % Sodium Chloride Flush 3 Ml Syringe) 3 ml IVFLUSH QSHIFT [facility] Last Admin: 06/23/24 08:34 Dose: 3 ml Documented By: ANGELA Tamsulosin HCl (Tamsulosin Hcl 0.4 Mg Capsule) 0.4 mg PO DAILY [facility] Last Admin: 06/23/24 08:33 Dose: 0.4 mg Documented By: ANGELA Labs 06/22/24 09:12 06/22/24 09:12 Assessment and Plan (1) Glenoid fracture of shoulder: Status: Acute Plan This is a 79-year-old male with pertinent history of CKD stage 3, coronary artery disease, paroxysmal atrial flutter on Eliquis, mood disorder, mixed hyperlipidemia, BPH, hypertension who was sent to the emergency department for evaluation after a fall Acute dislocation of left glenohumeral joint with impaction fracture of the humerus, scapula, corocoid process Due to mechanical fall POD 2 s/p post closed reduction and arthroscopic Bankart repair of left shoulder ortho following - ok to resume Eliquis, Patient is to remain in sling with abduction pillow in place at all times; no showers, sponge bathing only due to sling pain management, wean IV narcotics in preparation for discharge. still requesting pain medication frequently Paroxysmal atrial flutter: continue Multaq and metoprolol continue Eliquis CKD stage III: Creatinine at baseline Hypertension: BP better controlled Continue baseline metoprolol, hydralazine Coronary artery disease: continue statin, cilostazol Mood disorder: Continue home med BPH: continue Flomax DVT prophylaxis: Eliquis Full code Requires ongoing inpatient stay for pain management, safe disposition, postoperative care Quality Stroke Does the patient have a stroke diagnosis?: No VTE Prior VTE?: No VTE Risk Level:: Medical - moderate - high VTE Device Contraindication: N/A - Device Ordered VTE Drug Contraindication: Treatment Not Indicated
[2024-06-23 15:30] VITALS: BP 157/66; PULSE 61; RESP 18; TEMP 36.6; O2SAT 93
[2024-06-23 19:44] VITALS: BP 176/78; PULSE 63; RESP 18; TEMP 36.1; O2SAT 92
[2024-06-23 20:05] VITALS: BP 160/77
[2024-06-23] MEDS: polyethylene glycoL 3350 17 GM POWD.PACK PO (20:34)
[2024-06-24] VITALS (8 sets, daily range): BP systolic 140–190; BP diastolic 58–81; PULSE 74–147; RESP 16–18; TEMP 36.6–37.1; O2SAT 91–93
--- NOTE | 2024-06-24 | ECG_ITS ---
Test Reason : tachycardia Blood Pressure : */* mmHG Vent. Rate : 103 BPM Atrial Rate : * BPM P-R Int : * ms QRS Dur : 78 ms QT Int : 384 ms P-R-T Axes : * -5 42 degrees QTcB Int : 503 ms Normal sinus rhythm Premature atrial complexes Anteroseptal infarct (cited on or before 19-Mar-2024) Abnormal ECG When compared with ECG of 20-Jun-2024 15:25, Vent. rate has increased by 40 bpm Premature atrial complexes Present Referred By: Christina Li Electronically Signed By: ALYSHA BEE
[2024-06-24] MEDS: oxyCODONE HCl Immed Release 5 MG TABLET 10 MG PO ×5 (01:35→20:27)
[2024-06-24] MEDS: Furosemide 40 MG TABLET PO (08:37)
[2024-06-24] MEDS: Tamsulosin HCL 0.4 MG CAPSULE PO (08:37)
[2024-06-24] MEDS: Metoprolol Tartrate 25 MG TABLET PO (08:38)
[2024-06-24] MEDS: Dronedarone HCl 400 MG TABLET PO ×2 (08:38→20:29)
[2024-06-24] MEDS: Atorvastatin Calcium 80 MG TABLET PO (08:38)
[2024-06-24] MEDS: QUEtiapine Fumarate 25 MG TABLET PO ×2 (08:38→20:28)
[2024-06-24] MEDS: Docusate Sodium 100 MG CAPSULE PO (08:38)
[2024-06-24] MEDS: cilostazoL 50 MG TABLET PO ×2 (08:38→20:28)
[2024-06-24] MEDS: Sertraline HCL 50 MG TABLET PO (08:38)
[2024-06-24] MEDS: hydrALAZINE HCl 25 MG TABLET PO ×2 (08:38→20:28)
[2024-06-24] MEDS: Apixaban 5 MG TABLET PO ×2 (08:39→20:28)
[2024-06-24] MEDS: clonazePAM 0.5 MG TABLET PO ×2 (08:39→20:28)
--- NOTE | 2024-06-24 08:54 | PM.PNORT ---
Subjective Subjective Date of Service: 06/24/24 Interval history: Postop day 3 status post closed reduction and arthroscopic Bankart repair of left shoulder Patient resting comfortably in bed this morning Sling in place Pain improved No other acute complaints or concerns at this time Physical Exam Vital Signs: Vital Signs: Last Vital Signs Temp 98.7 F 06/24/24 08:00 Pulse 74 06/24/24 08:00 Resp 18 06/24/24 08:00 BP 190/81 H 06/24/24 08:00 Pulse Ox 92 06/24/24 08:00 O2 Del Method Room Air 06/24/24 08:00 O2 Flow Rate 2 06/21/24 18:36 BMI result Body Mass Index 31.7 Extrem: Other: Dressing on left shoulder clean, dry, intact Sling on left arm in place No evidence of surrounding erythema, ecchymosis No evidence of infection Patient is able to flex and extend the digits of the left hand without difficulty Compartments soft, nontender Distal sensation intact Capillary refill brisk Procedures Date of Service Date of Service: 06/24/24 Progress Note: A&P Assessment and plan (1) Anterior dislocation of humerus: Status: Acute (2) Glenoid fracture of shoulder: Status: Acute Plan 1. Status post closed reduction and arthroscopic Bankart lesion repair of left shoulder DOS 06/21/2024 Patient is to remain in sling with abduction pillow in place at all times Dressing to remain clean, dry, intact, no showers, sponge bathing only due to sling Continue with pain management per Medicine Continue with all other recommendations per Medicine Time Spent With Patient Time: Total time managing care of this patient today ____ minutes. Quality Stroke Does the patient have a stroke diagnosis?: No VTE Prior VTE?: No VTE Risk Level:: Medical - moderate - high VTE Device Contraindication: N/A - Device Ordered VTE Drug Contraindication: Treatment Not Indicated
--- NOTE | 2024-06-24 09:41 | P.F2F_ITS ---
Service Date Service Date: 06/24/24 Encounter Date of encounter: 06/24/24 Reasons for Services Signs and symptoms assessed: Left glenohumeral joint with impaction fracture of the humerus, scapula, coracoid process Status post close reduction and arthroscopic Bankart repair of left shoulder Reason for assisted: CV/CP assess and/or care Reason for physical therapy: home safety and mobility, therapeutic exercises and restore joint function Reason for occupational therapy: restore joint function Homebound: Leaving the home is medically contraindicated at this time without the asist of a device and/or another person due th the listed conditions above and below. Reason homebound: weakness related to hospital stay Certification: Based on the above findings, I certify that this patient is confined to the home and needs intermittent assisted care, physical therapy and/or speech therapy, or continues to need occupational therapy. The patient is under my care, and I have initiated the establishment of the plan of care. The patient will be followed by a physician who will periodically review the plan of care. Time Spent With Patient Time: Total time managing care of this patient today ____ minutes.
--- NOTE | 2024-06-24 11:11 | MHC.CM.PN ---
Addendum entered by Odilia George 06/24/24 13:17: DC cancelled due to S.O. concerns. Discharge is planned for tomorrow. Original Note: IMM 06/24/24 Patient is discharged today. [facility] will resume services. Patient has arranged for transportation home.
[2024-06-24] MEDS: Acetaminophen 325 MG TABLET 650 MG PO (12:04)
[2024-06-24] MEDS: 0.9 % Sodium Chloride Flush 3 ML SYRINGE IVFLUSH ×2 (12:11→17:40)
--- NOTE | 2024-06-24 13:02 | HO.PM.IMPN ---
Subjective Subjective Date of Service: 06/24/24 Interval History: seen and examined this morning follow up for shoulder fracture s/p surgery does not want to go to rehab; requesting pain meds every 4 hours Review of Systems Review of Systems: Yes all other systems are reviewed and are negative Constitutional Constitutional: Denies chills and Denies fever(s) Physical Exam Vital Signs: Vital Signs: Last Vital Signs Temp 98.7 F 06/24/24 08:00 Pulse 74 06/24/24 12:10 Resp 18 06/24/24 08:00 BP 190/81 H 06/24/24 12:10 Pulse Ox 92 06/24/24 12:10 O2 Del Method Room Air 06/24/24 08:00 O2 Flow Rate 2 06/21/24 18:36 BMI result Body Mass Index 31.7 Objective Data Active Medications Acetaminophen (Acetaminophen 325 Mg Tablet) 650 mg PO Q6H PRN PRN Reason: Pain, Mild 1-3,fever,headache Last Admin: 06/24/24 12:04 Dose: 650 mg Documented By: ANDRIY Apixaban (Apixaban 5 Mg Tablet) 5 mg PO BID [facility] Last Admin: 06/24/24 08:39 Dose: 5 mg Documented By: JUAN JOSE Atorvastatin Calcium (Atorvastatin Calcium 80 Mg Tablet) 80 mg PO DAILY [facility] Last Admin: 06/24/24 08:38 Dose: 80 mg Documented By: JUAN JOSE Calcium Carbonate (Calcium Carbonate 750 Mg Tab.Chew) 750 mg PO Q4H PRN PRN Reason: Heartburn Cilostazol (Cilostazol 50 Mg Tablet) 50 mg PO BID [facility] Last Admin: 06/24/24 08:38 Dose: 50 mg Documented By: JUAN JOSE Clonazepam (Clonazepam 0.5 Mg Tablet) 0.5 mg PO BID [facility] Last Admin: 06/24/24 08:39 Dose: 0.5 mg Documented By: JUAN JOSE Docusate Sodium (Docusate Sodium 100 Mg Capsule) 100 mg PO DAILY [facility] Last Admin: 06/24/24 08:38 Dose: 100 mg Documented By: JUAN JOSE Dronedarone (Dronedarone Hcl 400 Mg Tablet) 400 mg PO BID [facility] Last Admin: 06/24/24 08:38 Dose: 400 mg Documented By: JUAN JOSE Furosemide (Furosemide 40 Mg Tablet) 40 mg PO DAILY [facility]; Protocol Last Admin: 06/24/24 08:37 Dose: 40 mg Documented By: JUAN JOSE Hydralazine HCl (Hydralazine Hcl 25 Mg Tablet) 25 mg PO BID [facility]; Protocol Last Admin: 06/24/24 08:38 Dose: 25 mg Documented By: JUAN JOSE Magnesium Hydroxide (Milk Of Magnesia 30 Ml Oral.Susp) 30 ml PO DAILY PRN PRN Reason: Constipation Melatonin (Melatonin 3 Mg Tablet) 6 mg PO BEDTIME PRN PRN Reason: Insomnia Last Admin: 06/22/24 22:16 Dose: 6 mg Documented By: JEFF Metoprolol Tartrate (Metoprolol Tartrate 25 Mg Tablet) 25 mg PO DAILY [facility]; Protocol Last Admin: 06/24/24 08:38 Dose: 25 mg Documented By: JUAN JOSE Ondansetron HCl (Ondansetron Hcl 4 Mg/2 Ml Vial) 4 mg IVPUSH Q8H PRN PRN Reason: Nausea and Vomiting Last Admin: 06/20/24 03:49 Dose: 4 mg Documented By: KATINA Oxycodone HCl (Oxycodone Hcl Immed Release 5 Mg Tablet) 10 mg PO Q4H PRN PRN Reason: Pain, Moderate(Pain Scale 4-6) Last Admin: 06/24/24 12:03 Dose: 10 mg Documented By: ANDRIY Polyethylene Glycol (Polyethylene Glycol 3350 17 Gm Powd.Pack) 17 gm PO BEDTIME [facility] Last Admin: 06/23/24 20:34 Dose: 17 gm Documented By: ROBERT Quetiapine Fumarate (Quetiapine Fumarate 25 Mg Tablet) 25 mg PO BID [facility] Last Admin: 06/24/24 08:38 Dose: 25 mg Documented By: JUAN JOSE Sertraline HCl (Sertraline Hcl 50 Mg Tablet) 50 mg PO DAILY [facility] Last Admin: 06/24/24 08:38 Dose: 50 mg Documented By: JUAN JOSE Sodium Chloride (0.9 % Sodium Chloride Flush 3 Ml Syringe) [facility] Admin: 06/24/24 12:11 Dose: 3 ml Documented By: JUAN JOSE Tamsulosin HCl (Tamsulosin Hcl 0.4 Mg Capsule) 0.4 mg PO DAILY [facility] Last Admin: 06/24/24 08:37 Dose: 0.4 mg Documented By: JUAN JOSE Labs 06/22/24 09:12 06/22/24 09:12 Assessment and Plan (1) Glenoid fracture of shoulder: Status: Acute Plan This is a 79-year-old male with pertinent history of CKD stage 3, coronary artery disease, paroxysmal atrial flutter on Eliquis, mood disorder, mixed hyperlipidemia, BPH, hypertension who was sent to the emergency department for evaluation after a fall Acute dislocation of left glenohumeral joint with impaction fracture of the humerus, scapula, corocoid process Due to mechanical fall POD 3 s/p post closed reduction and arthroscopic Bankart repair of left shoulder ortho following - ok to resume Eliquis, Patient is to remain in sling with abduction pillow in place at all times; no showers, sponge bathing only due to sling pain management, wean IV narcotics in preparation for discharge. still requesting pain medication frequently Paroxysmal atrial flutter: continue Multaq and metoprolol continue Eliquis CKD stage III: Creatinine at baseline Hypertension: BP better controlled Continue baseline metoprolol, hydralazine Coronary artery disease: continue statin, cilostazol Mood disorder: Continue home med BPH: continue Flomax DVT prophylaxis: Eliquis Full code Requires ongoing inpatient stay for pain management, safe disposition, postoperative care Quality Stroke Does the patient have a stroke diagnosis?: No VTE Prior VTE?: No VTE Risk Level:: Medical - moderate - high VTE Device Contraindication: N/A - Device Ordered VTE Drug Contraindication: Treatment Not Indicated
[2024-06-24] MEDS: polyethylene glycoL 3350 17 GM POWD.PACK PO (20:26)
[2024-06-24] MEDS: oxyCODONE HCl Immed Release 15 MG TABLET PO (22:06)
[2024-06-24] MEDS: Eye Irrigation Solution 118 ML IRRIG.SOLN 1 APPL EYE-BOTH (22:08)
[2024-06-24] MEDS: LORazepam 1 MG TABLET PO (22:22)
[2024-06-25] VITALS (14 sets, daily range): BP systolic 135–156; BP diastolic 58–71; PULSE 71–164; RESP 16–20; TEMP 36.7–37.4; O2SAT 92–94
[2024-06-25] MEDS: oxyCODONE HCl Immed Release 5 MG TABLET 10 MG PO ×2 (02:07→15:42)
[2024-06-25] MEDS: Metoprolol Tartrate 25 MG TABLET PO (04:30)
--- NOTE | 2024-06-25 07:11 | PC.NURSE ---
Late Entry: 22:51 Pt complaining of 8/10 pain to L shoulder. Pt was given PRN Oxycodone at 20:27 and ice w/ no effect. MD Li notified of the pt's pain. One time dose of Oxycodone 15mg was given to pt w/ minimal effect. Pt feeling anxious, shaking, stating nothing is working for his pain . MD Li notified of his anxiety and one time dose of Ativan was ordered, given to pt at 22:22 w/ good effect. 22:40 Pt's HR via teley monitor 120-130s SR w/ PACs, BP 166/74, MD Li notified of the situation. EKG ordered. No other orders were given.Continue to monitor teley. Between 23:30 to 02:00, Pt's cardiac rhythm fluctuated from 100s to 140s, SR w/ PACs to SVT. MD Li was notified of the changes of the pt's cardiac rhythm and HR. No new orders were given. This RN continue to monitor the teley. At 02:10, pt went to A.fib via teley, per CEE Multani, known Hx of A.fib on [facility]. MD Li notified of the change in rhythm. No new orders were given at this time. This RN continue to monitor the teley. Around 03:50, CEE Multani notified this RN that the pt's HR went up to the 160s via teley. This RN went to pt's bedside to assess, but pt was resting in bed. MD Li and Nursing Ssn/Ssbn Assistant Navigator Yoanna was notified of the situation. Per MD Li, pt's SOTERO Metoprolol was given earlier at 04:23 w/ good effect. One time dose of IV Metoprolol was ordered as well, but was held because the pt's HR went down to the 80s-90s A.fib. Will continue to monitor. At 06:21, this RN was notified from [facility] that the pt's rhythm converted back to SR w/PACs 70s. Will continue to monitor the pt's cardiac rhythm. Report given to oncoming RN.
[2024-06-25] MEDS: clonazePAM 0.5 MG TABLET PO (08:25)
[2024-06-25] MEDS: cilostazoL 50 MG TABLET PO (08:25)
[2024-06-25] MEDS: Sertraline HCL 50 MG TABLET PO (08:25)
[2024-06-25] MEDS: Tamsulosin HCL 0.4 MG CAPSULE PO (08:25)
[2024-06-25] MEDS: hydrALAZINE HCl 25 MG TABLET PO (08:26)
[2024-06-25] MEDS: Docusate Sodium 100 MG CAPSULE PO (08:26)
[2024-06-25] MEDS: Dronedarone HCl 400 MG TABLET PO (08:26)
[2024-06-25] MEDS: Apixaban 5 MG TABLET PO (08:26)
[2024-06-25] MEDS: Atorvastatin Calcium 80 MG TABLET PO (08:26)
[2024-06-25] MEDS: QUEtiapine Fumarate 25 MG TABLET PO (08:26)
[2024-06-25] MEDS: Furosemide 40 MG TABLET PO (08:26)
[2024-06-25] MEDS: 0.9 % Sodium Chloride Flush 3 ML SYRINGE IVFLUSH ×2 (08:30→15:02)
--- NOTE | 2024-06-25 11:38 | MHC.CM.PN ---
IMM 06/24/24 Patient is discharged to home with [facility] home care. He will transfer via BLS. Transport is booked for 4pm diamond picker.
--- NOTE | 2024-06-28 13:31 | P.OP_ITS ---
Operative Note Operative Note Date of Service: 06/21/24 Narrative: Date of Service: 06/21/24 Pre-op diagnosis: Left shoulder fracture/dislocation Post-op diagnosis: same Procedure: Arthroscopic bankhart repair with closed reduction Implants: Butt and Nephew Micro-raptor x 2 Surgeon: Royce Kothari MD Anesthesia: GETA and regional Was an Hvac Sheet Metal Installer Helper used for this Procedure?: Yes Hvac Sheet Metal Installer Helper: Tree Hand Estimated blood loss (mL): 2 IV fluids (mL): 1,200 Pathology: none sent Condition: stable Disposition: PACU Procedure in detail: Patient was brought to the operating room and placed the the beach chair position. All bony prominences were well padded and the limb was prepped and draped in standard sterile fashion. A time out was called to identify proper site, proper procedure and proper surgeon. IV antibiotics per weight were administered. I began by reducing the shoulder. It was easily reduceable but would not remain reduced. I began by making a posterolateral stab incision with a 15 blade. A blunt trochar was placed into the glenohumeral joint and I insufflated the joint with saline and a 30 degree arthroscope was placed. I established an outside- in anterior portal just distal to the biceps tendon. I then began my inspection of the glenohumeral joint. Once the hematoma and debris was eliminated there was a glenoid fracture anterioly that extended through the face of the glenoid. It was non displaced through the glenoid face and the anterior bony bankhart was a thin,, near vertical piece that extended from the 7 to the 11 o:clock position. I debrided this with a shave initially and established that it would not hold a screw. Therefore I debrided the cartilage and then performed a capsular plication. I used a champion passer to imbricate the tissue inferiorly. This tissue was brought to a micro-rapto suture anchor at the anterior edge of the glenoid. This tissue included the labram and some of the fragmented bone from the bony bankhart and created a rim against the anterior glenoid. I repeated this process at the 3 o:clock position. This created an anterior bumper to prevent anterior dislocation. The humeral head was intact and the biceps and subscapularis and superior cuff were also intact. I then removed the trochar and entered the subacromial space. Once I was satisfied with the repair final images were captured and I removed all instrumentation. Flouro was also used to confirm reduction. Portals were closed with nylon. Patient was placed in an abduction sling, extubated and brought to the recovery room in stable condition. There were no known complications.
== END 2024-06-25 16:28 | disposition home health service (06) | DRG 501 ==
LOC: HO.ED 22:21 → HO.EDOVER 22:22 → HO.S3 06-20 07:54
PROVIDERS: Orthopaedic Surgery; Physician Assistant; Physician Assistant Medical; Admitting Provider Student in an Organized Health Care Education/Training Program; Emergency Provider Emergency Medicine; PCP Internal Medicine; Visit Provider Nurse Practitioner Acute Care
PROC: 0LM24ZZ Reattachment of Left Shoulder Tendon, Percutaneous Endoscopic Approach (ICD-10-PCS; CPT 29805; principal; 2024-06-21 16:00)
DX: S42.132A Displaced fracture of coracoid process, left shoulder, initial encounter for closed fracture (principal); S42.255A Nondisplaced fracture of greater tuberosity of left humerus, initial encounter for closed fracture; W00.0XXA Fall on same level due to ice and snow, initial encounter; I25.10 Atherosclerotic heart disease of native coronary artery without angina pectoris; G89.18 Other acute postprocedural pain; I48.0 Paroxysmal atrial fibrillation; E78.2 Mixed hyperlipidemia; F39 Unspecified mood [affective] disorder; N40.0 Benign prostatic hyperplasia without lower urinary tract symptoms; I12.9 Hypertensive chronic kidney disease with stage 1 through stage 4 chronic kidney disease, or unspecified chronic kidney disease; N18.30 Chronic kidney disease, stage 3 unspecified; Z87.891 Personal history of nicotine dependence; Z79.01 Long term (current) use of anticoagulants; Z79.899 Other long term (current) drug therapy
CPT/HCPCS: 36415; 70450; 73030; 73080; 73200; 80048; 80053; 83690; 85025; 85027; 85610; 86850; 86900; 86901; 93005; 97116; 97161; 99212; 99285; C1713; J0131; J0171; J0665; J0690; J1100; J1171; J2003; J2250; J2270; J2405; J2704; J3010; J7120

== ENCOUNTER 2024-06-19 22:19 | Outpatient (BNV) | payer MEDICARE, MEDICAID, SELFPAY | END 2024-06-24 22:54 | PROVIDERS: Admitting Provider Student in an Organized Health Care Education/Training Program; Emergency Provider Emergency Medicine; PCP Internal Medicine; Visit Provider Internal Medicine | DX: I49.1 Atrial premature depolarization (principal); I25.2 Old myocardial infarction | CPT/HCPCS: 93010 ==

== ENCOUNTER 2024-06-19 22:19 | Outpatient (BNV) | payer MEDICARE, MEDICAID, SELFPAY | END 2024-06-20 10:43 | PROVIDERS: Admitting Provider Student in an Organized Health Care Education/Training Program; Emergency Provider Emergency Medicine; PCP Internal Medicine; Visit Provider Internal Medicine | DX: I49.1 Atrial premature depolarization (principal) | CPT/HCPCS: 93010 ==

== ENCOUNTER → 2024-06-19 22:19 | Outpatient (BNV) | payer MEDICARE, MEDICAID, SELFPAY | PROVIDERS: Admitting Provider Student in an Organized Health Care Education/Training Program; Emergency Provider Emergency Medicine; PCP Internal Medicine; Visit Provider Internal Medicine | DX: Z01.810 Encounter for preprocedural cardiovascular examination (principal); I48.92 Unspecified atrial flutter; I25.10 Atherosclerotic heart disease of native coronary artery without angina pectoris | CPT/HCPCS: 99223 ==

== ENCOUNTER → 2024-06-19 22:19 | Outpatient (BNV) | payer MEDICARE, MEDICAID, SELFPAY | PROVIDERS: Admitting Provider Student in an Organized Health Care Education/Training Program; Emergency Provider Emergency Medicine; PCP Internal Medicine; Visit Provider Student in an Organized Health Care Education/Training Program | DX: S42.309A Unspecified fracture of shaft of humerus, unspecified arm, initial encounter for closed fracture (principal); S43.005A Unspecified dislocation of left shoulder joint, initial encounter; S42.102A Fracture of unspecified part of scapula, left shoulder, initial encounter for closed fracture | CPT/HCPCS: 99222; 99232; 99233; 99239; G0180 ==

== ENCOUNTER → 2024-06-19 22:19 | Outpatient (BNV) | payer MEDICARE, MEDICAID, SELFPAY | PROVIDERS: Admitting Provider Student in an Organized Health Care Education/Training Program; Emergency Provider Emergency Medicine; PCP Internal Medicine | DX: S42.102A Fracture of unspecified part of scapula, left shoulder, initial encounter for closed fracture (principal); S42.302A Unspecified fracture of shaft of humerus, left arm, initial encounter for closed fracture; S43.012A Anterior subluxation of left humerus, initial encounter; S43.005A Unspecified dislocation of left shoulder joint, initial encounter | CPT/HCPCS: 99222 ==

== ENCOUNTER 2024-07-05 09:29 | Outpatient (REF) | payer MEDICARE, MEDICAID, SELFPAY ==
--- NOTE | ~2024-07-05 | XR_ITS ---
EXAMINATION: XR SHOULDER 2 OR MORE VIEWS LEFT HISTORY: M25.519 - Pain in unspecified shoulder COMPARISON: Comparison is made with the prior examination dated 06/19/2024. FINDINGS: Two views of the left shoulder are submitted. Osseous mineralization is normal. Again seen is a nondisplaced fracture of the superior glenoid without change. The previously seen anterior fracture fragment is not visualized on these views. 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 The soft tissues are unremarkable. XR/XR shoulder LT min 2V IMPRESSION: Nondisplaced fracture of the superior glenoid without change. The previously seen anterior glenoid fracture is not visualized on these views. Electronically signed by: Anuj Hendrickson MD 07/08/2024 12:46 PM EDT
--- OUTSIDE RECORDS SUMMARY | 2024-07-08 10:15 | XMS_ITS | Clinical Summary ---
Author Organization [employer] Address [address] [facility] [address] [place] [address] Care Team Providers Care Production Miner Name Role Phone Sesar Pereyra MD Primary Care Provider [phone] Allergies No known active allergies Medications clonazePAM [...] day. 28 tablet 11 05/23/19 25 Active dronedarone (Multaq) 400 MG tabletIndicatio ns:Paroxysmal atrial fibrillation (CMS/HCC) Take 1 tablet (400 mg) by mouth with breakfast and with evening meal. 60 tablet 06/24/19 25 Active amphetamine-dex troamphetamine (Adderall) 7.5 MG tablet Take 1 tablet (7.5 mg) by mouth Once per day. 28 tablet 07/06/19 25 Active amphetamine-dex troamphetamine (Adderall) 7.5 MG tablet Take 1 tablet (7.5 mg) by mouth Once per day. 28 tablet 05/27/19 25 025 Discontinued(Re order (will not trigger notification [...] considered Sleep disorder 02/02/2015 Overview (01/22/2024): Saw [facility] sleep on 01/15/2015: Dr. Johnson Likely DILLAN sleep study ordered. Given that he has RLS, He may have periodic limb movement disorder which can be checked for in the study. Check ferritin. Will await sleep study. Depression with anxiety 04/01/2014 Overview (06/16/2022): Dr. Pradhan at [facility]. Is going to establish care at [...] Sees this doctor once a year at [facility]. Follows up with this facility every 6 months. Pure hypercholesterolemia 07/24/2009 Thoracic aortic aneurysm (TAA) 03/11/2009 Overview (01/22/2024): IMO update Seen by [facility]. 4.[address] 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 07/14/2005 Overview (01/22/2024): Stent on right and fem- fem bypass on left IMO update Depressive disorder 07/14/2005 Alcohol abuse, in remission 06/19/2005 Encounters Date Type Department Care Team Description 07/04/[address] [address] Sesar Pereyra MD 06/24/2024 Orders Only [facility] [address] [place] [phone] Sesar Pereyra MD Paroxysmal atrial fibrillation (CMS/HCC) (Primary Dx) 06/21/[address] [address] Sesar Pereyra MD Medication Question 06/19/2024 Orders Only GENERIC EXTERNAL DATA DEPARTMENT Provider, Generic External Data 06/13/2024 1:00 PM EST Office Visit [facility] [address] [place] [address] Sesar Pereyra MD Kidney stone (Primary Dx); Primary hypertension; Low back pain at multiple sites; Tinnitus of right ear; Lower urinary tract symptoms 06/13/2024 Travel 06/12/2024 Orders Only GENERIC EXTERNAL DATA DEPARTMENT Provider, Generic External Data 05/30/[address] [address] Sesar Pereyra MD Lab Orders; Referral 05/30/[address] [address] Sesar Pereyra MD 05/28/[address] [place] [address] Sesar Pereyra MD fyi 05/27/2024 Refill [facility] [address] [place] [address] Sesar Pereyra MD 05/23/2024 Telephone [facility] [address] [place] [address] Sesar Pereyra MD Medication Question 05/15/2024 Telephone [facility] [address] [place] [address] Sesar Pereyra MD 05/09/2024 Telephone [facility] [address] [place] [address] Verona Thompson, CLAUDIA 05/07/2024 9:15 AM EST Office Visit [facility] [address] [place] [address] Natasha Jiang MD Kidney stone (Primary Dx) 05/07/2024 Telephone [facility] [address] [place] [address] Natasha Jiang MD Medication Question 05/07/2024 Orders Only [facility] [address] [place] [address] Natasha Jiang MD 05/07/2024 Travel 05/06/2024 Telephone [facility] [address] [place] [address] Sesar Pereyra MD Nurse Triage 04/30/2024 Refill [facility] [address] [place] [address] Sesar Pereyra MD Longstanding persistent atrial fibrillation (CMS/HCC); PVD (peripheral vascular disease) (CMS/HCC) 04/29/2024 Orders Only [facility] [address] [place] [address] Sesar Pereyra MD Closed nondisplaced fracture of acromial end of right clavicle, initial encounter 04/29/2024 Telephone [facility] [address] [place] [address] Sesar Pereyra MD Nurse Triage 04/28/2024 Refill [facility] [address] [place] [address] Sesar Pereyra MD 04/26/2024 Refill [facility] [address] [place] [address] Sesar Pereyra MD Closed nondisplaced fracture of acromial end of right clavicle, initial encounter 04/26/2024 Telephone [facility] [address] [place] [address] Sesar Pereyra MD Med Refill 04/18/2024 Refill [facility] [address] [place] [address] Loyda Jacobson RN Essential hypertension; Closed nondisplaced fracture of acromial end of right clavicle, initial encounter 04/18/2024 Telephone [facility] [address] [place] [address] Sesar Pereyra MD Med Refill 04/11/2024 Refill [facility] [address] [place] [address] Sesar Pereyra MD 04/11/2024 Refill [facility] [address] [place] [address] Natasha Jiang MD Closed nondisplaced fracture of acromial end of right clavicle, initial encounter 04/11/2024 Travel 04/10/2024 Refill [facility] [address] [place] [address] Sesar Pereyra MD Closed nondisplaced fracture of acromial end of right clavicle, initial encounter 04/10/2024 Telephone [facility] [address] [place] [address] Sesar Pereyra MD Med Refill from Last [...] Upcoming Encounters Date Type Department Care Team ([facility] st Contact Info) Description 09/11/2024 10:30 AM EDT Office Visit [facility] [address] [place] [address] Sesar Pereyra MD [address] [place] [address] Health Maintenance Due Date Last Done Comments [...] EST Narrative 06/24/2024 8:13 AM EST ? [facility] ?[address] ?[place] [address] ? Fluoroscopy Report ? Signed ? Patient: Prawlucki,Alex ?MR#: [id number] ?? [id number] ? : 1945 ?Acct:[id number] ? Age/Sex: 79 / M ?ADM Date: 06/19/24 ? Loc: HO.S3 ?363-2 ? Attending Dr: Tania Bernabe MECHANICAL DEVELOPMENT ENGINEER ? Ordering Physician: Royce Kothari MD ?? Date of Service: 06/21/24 ?? Procedure(s): FL guidance in OR ?? Accession Number(s): [id number] ? cc: Sesar Pereyra MD; Royce Kothari [...] DD/ 1750 ? TD/TT: 06/21/24 1750 ? Rivet Sorter: ? Procedure Note Alonzo Ng - 06/24/[address] [address] Fluoroscopy Report Signed Patient: Ronald Nettles#: [id number] : 1945cct:[id number] Age/Sex: 79 / MADM Date: 06/19/24 Loc: HO.S3 363-[address]: Tania Bernabe NP Ordering Physician: Royce Kothari MD Date of Service: 06/21/24 Procedure(s): FL guidance in OR Accession Number(s): [id number] cc: Sesar Pereyra MD; Royce Kothari MD [...] 06/24/24 0810 DD/ 1750 TD/TT: 06/21/24 1750 Rivet Sorter: [facility] External Provider IMG IR PROCEDURES Final Result * CT Humerus (06/19/2024 8:00 PM EST) Anatomical Region Laterality Modality Computed Tomogra phy 06/19/2024 8:00 PM EST Narrative 06/19/2024 8:02 PM EST ? [facility] ?[address] ?[place] [address] ? CT Scan Report ? Signed ? Patient: Tho,Alex ?MR#: [id number] ?? [id number] ? : 1945 ?Acct:[id number] ? Age/Sex: 79 / M ?ADM Date: 06/19/ ? Loc: HO.ED ? Attending Dr: ? Ordering Physician: Angela Moura MD ?? Date of Service: 06/19/24 ?? Procedure(s): CT humerus LT wo IV con ?? Accession Number(s): [id number] ? cc: Sesar Pereyra MD; Angela Moura MD ? Report Number: ?? [id number]: Total DLP = ??192.00 mGy-cm ? CLINICAL [...] of the dorsal margin of the glenoid. Ltmgyoms-ov-igtjk ?? 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 ?? 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 ?? Please refer to separate report for x-rays of the partially included elbow. ?? Mild imaged rib deformities in the qgdpk-uf-usiy appear old/chronic. ? Impression: ?? 1. Anterior [...] ? DD/ 99 ? TD/TT: 06/19/241999 ? Rivet Sorter: ? Procedure Note Hernandez, Alonzo - 06/20/[address] [address] [address] Scan Report Signed Patient: Ronald Nettles#: [id number] : 1945cct:[id number] Age/Sex: 79 / MADM Date: 06/19/24 Loc: HO.ED Attending Dr: Ordering Physician: Angela Moura MD Date of Service: 06/19/24 Procedure(s): CT humerus LT wo IV con Accession Number(s): [id number] cc: Sesar Pereyra MD; Angela Moura MD Report Number: [id number]: Total DLP = 192.00 mGy-cm CLINICAL HISTORY: [...] of the dorsal margin of the glenoid. Ngrfgzxn-wz-juplw effusion with lipohemarthrosis of the left glenohumeral joint. 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 Please refer to separate report for x-rays of the partially includedelbow. Mild imaged rib deformities in the ikyqq-nw-vdvn appear old/chronic. Impression: 1. Anterior dislocation of [...] in OV> 06/19/242001 DD/ 99 TD/TT: 06/19/241999 Rivet Sorter: [facility] External Provider IMG CT PROCEDURES Final Result * (ABNORMAL) CBC auto differential (06/19/2024 7:57 PM EST) White Blood Count 11.9(H) 4.8 - 10.8 X10*3/uL [facility] Red Blood Count 4.64 4.60 - 5.80 X10*6/uL [facility] Hemoglobin 14.3 14.0 - 18.0 g/dl [facility] Hematocrit 42.9 42.0 - 52.0 % [facility] Mean Corpuscular Volume 92.5 80.0 - 98.0 fL [facility] Mean Corpuscular Hemoglobin 30.8 27.0 - 33.0 pg [facility] Mean Corpuscular HGB Conc 33.3 31.0 - 36.0 g/dl [facility] Red Cell Distribution Width 14.4 11.0 - 16.0 % [facility] Platelet Count 238 160 - 400 X10*3/uL [facility] Mean Platelet Volume 9.9 9.4 - 12.4 fL [facility] Neutrophils Percent Auto 83.9(H) 45 - 73 % [facility] Imm Gran Pct Auto 0.3 0.0 - 0.4 % [facility] Lymphocytes Percent Auto 7.1(L) 20 - 40 % [facility] Monocytes Percent Auto 8.1 2 - 11 % [facility] Eosinophils Percent Auto 0.2 0 - 4 % [facility] Basophils Percent Auto 0.4 0 - 2 % [facility] NRBC Pct Auto 0.0 0.0 - 0.2 /100WBC [facility] Neutrophils Absolute Auto 10.0(H) 2.0 - 8.3 x10*3/uL [facility] Imm Gran Abs Auto 0.04(H) 0.00 - 0.03 X10*3/uL [facility] Lymphocytes Absolute Auto 0.9(L) 1.2 - 4.9 X10*3/uL [facility] Monocytes Absolute Auto 1.0 0.1 - 1.2 X10*3/uL [facility] Eosinophils Absolute Auto 0.0 0.0 - 0.4 X10*3/uL [facility] Basophils Absolute Auto 0.1 0.0 - 0.2 X10*3/uL [facility] NRBC Abs Auto 0.000 0.0 - 0.012 X10*3/uL [facility] 06/19/2024 7:57 PM EST 06/19/2024 8:05 PM EST us Generic External Data Provider LAB BLOOD ORDERAB LES Edited Result - Final Performing Organization Address [facility] de Phone Number [facility] [address] [place], [place] [phone] * (ABNORMAL) Prothrombin Time-INR (06/19/2024 7:57 PM EST) Prothrombin Time 16.0(H) 10.9 - 12.4 SEC [facility] INTERNATIONAL NORM RATIO 1.4(H) 0.9 - 1.1 [facility] Comment:INTERNATIONAL NORMAL IZED RATIO (INR) [...] 7:57 PM EST 06/19/2024 8:05 PM EST Generic External Data Provider LAB BLOOD ORDERAB LES Final Result Performing Organization Address [facility] de Phone Number [facility] [address] [place] [phone] * XR Elbow 3+ Views Left (06/19/2024 7:16 PM EST) Anatomical Region Laterality Modality Upper Extremities, Elbow Left Radiogr aphic Imaging 06/19/2024 7:16 PM EST Narrative 06/19/2024 7:18 PM EST ? [facility] ?[address] ?[place] [address] ?XRay Report ? Signed ? Patient: Prawismaelki,Alex ?MR#: [id number] ?? [id number] ? : 1945 ?Acct:[id number] ? Age/Sex: 79 / M ?ADM Date: 02/19/25 ? Loc: HO.ED ? Attending Dr: ? Ordering Physician: Angela Moura MD ?? Date of Service: 06/19/24 ?? Procedure(s): XR elbow LT min 3V ?? Accession Number(s): [id number] ? cc: Sesar Pereyra MD; Angela Moura [...] ? DD/ 15 ? TD/TT: 06/19/241915 ? Rivet Sorter: ? Procedure Note Alonzo Ng - 06/19/2024 [place] [address] XRay Report Signed Patient: Ronald Nettles#: [id number] : 1945cct:[id number] Age/Sex: 79 / MADM Date: 06/19/24 Loc: HO.ED Attending Dr: Ordering Physician: Angela Moura MD Date of Service: 06/19/24 Procedure(s): XR elbow LT min 3V Accession Number(s): [id number] cc: Sesar Pereyra MD; Angela Moura MD [...] in OV> 06/19/241916 DD/ 15 TD/TT: 06/19/241915 Rivet Sorter: [facility] External Provider IMG XR PROCEDURES Final Result * CT Head w/o Contrast (06/19/2024 7:12 PM EST) Anatomical Region Laterality Modality Head, Neck Computed Tomogra phy 06/19/2024 7:12 PM EST Narrative 06/19/2024 7:14 PM EST ? [facility] ?[address] ?[place] [address] ? CT Scan Report ? Signed ? Patient: KpismaelAlex londono ?MR#: [id number] ?? [id number] ? : 1945 ?Acct:[id number] ? Age/Sex: 79 / M ?ADM Date: 06/19/24 ? Loc: HO.ED ? Attending Dr: ? Ordering Physician: Lonny Delgado ?? Date of Service: 06/19/24 ?? Procedure(s): CT head/brain wo IV con ?? Accession Number(s): [id number] ? cc: Sesar Pereyra MD; Lonny Delgado ? Report Number: ?? [id number]: Total DLP = ??652.00 mGy-cm ? CLINICAL [...] ? DD/ 11 ? TD/TT: 06/19/241911 ? Rivet Sorter: ? Procedure Note Doncathieter, Image - 06/19/[address] [place] [address] [address] Scan Report Signed Patient: Ronald Nettles#: [id number] : 1945cct:[id number] Age/Sex: 79 / MADM Date: 06/19/24 Loc: HO.ED Attending Dr: Ordering Physician: Lonny Delgado Date of Service: 06/19/24 Procedure(s): CT head/brain wo IV con Accession Number(s): [id number] cc: Sesar Pereyra MD; Lonny Delgado Report Number: [id number]: Total DLP = 652.00 mGy-cm CLINICAL HISTORY: [...] in OV> 06/19/241912 DD/ 11 TD/TT: 06/19/241911 Rivet Sorter: [facility] External Provider IMG CT PROCEDURES Final Result * Lipase (06/19/2024 6:17 PM EST) Lipase 17 8 - 78 U/L [facility] 06/19/2024 6:17 PM EST 06/19/2024 6:19 PM EST Generic External Data Provider LAB BLOOD ORDERAB LES Final Result [facility] [address] [place] [phone] * (ABNORMAL) Comprehensive Metabolic Panel (06/19/2024 6:17 PM EST) Sodium 142 135 - 145 mmol/L [facility] Potassium 3.8 3.3 - 5.1 mmol/L [facility] Comment:Slight Hemolysis.Int erpret result with caution. Chloride 109(H) 96 - 108 mmol/L [facility] Carbon Dioxide 23 22 - 29 mmol/L [facility] Anion Gap 14 12 - 20 [facility] Urea Nitrogen (BUN) 13 9 - 16 mg/dL [facility] Creatinine, Serum 1.11 0.5 - 1.4 mg/dL [facility] Creatinine Clr Calc Pharmacy 72.1 [facility] Comment:eGFR (calculated fro m the MDRD study equation) and eCrCl(calculated from the Cockcroft-Gault equation) are based ondifferent parameters and may not yield comparable results.If eCrCl result is absurd, please check patient'sheight/weight. Estimated Glomerular Filt Rate >60 [facility] Comment:Chronic Kidney Disea se: Estimated GFR < 60 mL/min/1.53y7Emumok Kidney Disease: Estimated GFR < 15 mL/min/1.73m2 Glucose 92 60 - 115 mg/dL [facility] Calcium 9.1 8.4 - 10.2 mg/dL [facility] Bilirubin, Total 0.5 0.0 - 1.0 mg/dL [facility] Aspartate Amino Transferase 27 5 - 37 U/L [facility] Comment:Slight Hemolysis.Int erpret result with caution. Alanine Aminotransferase 14 0 - 40 U/L [facility] Total Protein 7.7 6.5 - 8.0 g/dL [facility] Albumin Level 4.1 3.5 - 5.0 g/dL [facility] Alkaline Phosphatase 119(H) 39 - 117 U/L [facility] 06/19/2024 6:17 PM EST 06/19/2024 6:19 PM EST us Generic External Data Provider LAB BLOOD ORDERAB LES Final Result Performing Organization Address City/State/[facility] Co de Phone Number [facility] [address] [place] [address] [phone] * XR Shoulder 2+ Views Left (06/19/2024 4:00 PM EST) Anatomical Region Laterality Modality Upper Extremities, Shoulder Left Radi ographic Imaging 06/19/2024 4:00 PM EST Narrative 06/19/2024 4:23 PM EST ? [facility] ?[address] ? [place] [address] ?XRay Report ? Signed ? Patient: Tho,Alex ?MR#: [id number] ?? [id number] ? : 1945 ?Acct:[id number] ? Age/Sex: 79 / M ?ADM Date: 02/19/25 ? Loc: HO.HMGCX ? Attending Dr: Teresa Marie PA-C ? Ordering Physician: Teresa Marie PA-C ?? Date of Service: 06/19/24 ?? Procedure(s): XR shoulder LT min 2V ?? Accession Number(s): [id number] ? cc: Sesar Pereyra MD; Teresa Marie [...] DD/ 1600 ? TD/TT: 06/19/24 1611 ? Rivet Sorter: ? Procedure Note Hernandez, Image - 06/19/2024 [facility] [place] [address] XRay Report Signed Patient: Alex Nettles#: [id number] : 1945cct:[id number] Age/Sex: 79 / MADM Date: 06/19/24 Loc: HO.HMGCX Attending Dr: Teresa Marie PA-C Ordering Physician: Teresa Marie PA-C Date of Service: 06/19/24 Procedure(s): XR shoulder LT min 2V Accession Number(s): [id number] cc: Sesar Pereyra MD; Teresa Marie PA-C [...] 06/19/24 1621 DD/ 1600 TD/TT: 06/19/24 1611 Rivet Sorter: [facility] External Provider IMG XR PROCEDURES Final Result * Creatinine, Serum (06/12/2024 12:09 PM EST) [facility] Creatinine, Serum 1.13 0.5 - 1.4 mg/dL [facility] Estimated Glomerular Filt Rate >60 [facility] Comment:Chronic Kidney Disea se: Estimated GFR < 60 mL/min/1.57e5Plvnmb Kidney Disease: Estimated GFR < 15 mL/min/1.73m2 06/12/2024 12:0 9 PM EST 06/12/2024 12:14 PM EST Generic External Data Provider LAB BLOOD ORDERAB LES Final Result [facility] [address] [place] [phone] * (ABNORMAL) BUN (Blood Urea Nitrogen) (06/12/2024 12:09 PM EST) [facility] Urea Nitrogen (BUN) 18(H) 9 - 16 mg/dL [facility] 06/12/2024 12:0 9 PM EST 06/12/2024 12:14 PM EST Generic External Data Provider LAB BLOOD ORDERAB LES Final Result Performing Organization Address [facility] Phone Number [facility] [address] [place] [phone] * Calcium (06/12/2024 12:09 PM EST) [facility] Calcium 9.1 8.4 - 10.2 mg/dL [facility] 06/12/2024 12:0 9 PM EST 06/12/2024 12:14 PM EST Generic External Data Provider LAB BLOOD ORDERAB LES Final Result Performing Organization Address [facility] Phone Number [facility] [address] [place] [phone] * (ABNORMAL) Electrolyte Panel (06/12/2024 12:09 PM EST) [facility] Sodium 142 135 - 145 mmol/L [facility] Potassium 4.0 3.3 - 5.1 mmol/L [facility] Comment:Slight Hemolysis.Int erpret result with caution. Chloride 109(H) 96 - 108 mmol/L [facility] Carbon Dioxide 24 22 - 29 mmol/L [facility] Anion Gap 13 12 - 20 [facility] 06/12/2024 12:0 9 PM EST 06/12/2024 12:14 PM EST Generic External Data Provider LAB BLOOD ORDERAB LES Final Result Performing Organization Address [facility] Phone Number [facility] [address] [place] [phone] * XR KUB and Upright 2 Views (05/07/2024 10:21 AM EST) Anatomical Region Laterality Modality Radiographic Homa ging 05/07/2024 10:2 1 AM EST Narrative 05/07/2024 10:48 AM EST ? [facility] ?[address] ?[place] [address] ?XRay Report ? Signed ? Patient: Alex Nettles ?MR#: [id number] ?? [id number] ? : 1945 ?Acct:[id number] ? Age/Sex: 79 / M ?ADM Date: 05/07/24 ? Loc: HO.XRAY ? Attending Dr: Natasha Jiang MD ? Ordering Physician: Natasha Jiang MD ?? Date of Service: 05/07/24 ?? Procedure(s): XR KUB ?? Accession Number(s): [id number] ? cc: Sesar Pereyra MD; Natasha Jiang [...] DD/ 1021 ? TD/TT: 05/07/24 1040 ? Rivet Sorter: ? Procedure Note Alonzo Ng - 05/07/2024 [facility] [address] [place] [address] XRay Report Signed Patient: Ronald Nettles#: [id number] : 7Acct:[id number] Age/Sex: 79 / MADM Date: 05/07/24 Loc: HO.XRAY Attending Dr: Natasha Jiang MD Ordering Physician: Natasha Jiang MD Date of Service: 05/07/24 Procedure(s): XR KUB Accession Number(s): [id number] cc: Sesar Pereyra MD; Natasha Jiang MD [...] 05/07/24 1045 DD/ 1021 TD/TT: 05/07/24 1040 Rivet Sorter: Natasha Jiang MD IMG XR PROCEDURES Edited [...] Expiration Date Urine 05/07/2024 9:33 AM EST us Natasha Jiang MD POINT OF CARE TEST ENTER/EDIT OR DERABLES Final Result * Hepatitis C Ab (07/19/2023 11:42 AM EDT) Pathologist [facility] Hepatitis C Antibody Nonreactive Nonreactive [facility] Comment:Antibodies to HCV no t detected; does not exclude early acuteHCV infection. Blood Venous blood specimen / Unknown 07/19/2023 11:42 AM EDT 07/19/2023 2:25 PM EDT us Sesar Pereyra MD LAB BLOOD ORDERABLES Final Result [facility] [address] [place] [phone] * (ABNORMAL) LIPID PANEL, STANDARD (03/05/2021 9:16 AM EDT) Pathologist [facility] Chol/HDLC Ratio 4.1 <5.0 (calc) [facility] [...] ?? Ulisses MCDANIEL et al. MANDEEP. 2013;310(19): 6943-2074 ?? (http://education.[employer].com/faq/TIK325) Non-HDL Cholesterol 104 <130 mg/dL (calc) [facility] [...] Pereyra MD LAB BLOOD ORDERABLES Final Result [facility] [address] from Last 3 Months or Most Recently Relevant to Health Maintenance Insurance [employer] MEDICARE REPLACEMENT [facility] [employer] Care Teams Production Miner Relationship Specialty Start Date End Date Sesar Pereyra MD [address] [place] [phone] PCP - General Internal Medicine 03/01/21 [facility] 03/22/24
--- OUTSIDE RECORDS SUMMARY | 2024-07-08 10:15 | XMS_ITS | Encounter Summary ---
Author Organization [employer] Address [address] [facility] 7t [place] [address] Care Team Providers Care Religious Leader Name Role Phone Sesar Pereyra MD Primary Care Provider +1- [phone] Reason for Visit * Reason Onset Date Comments Med Refill 04/26/2024 Encounter Details Date Type Department Care Team ([facility] st Contact Info) Description 04/26/2024 Telephone [facility] MEDICINE [address] [place] [address] Sesar Pereyra MD [address] [place] [address] Med Refill Social History Tobacco Use Types [...] 7.5 MG tablet To be sent to: [facility] - [place], [place] - [address] documented in this encounter Plan of Treatment Upcoming Encounters Date Type Department Care Team (Late st Contact Info) Description 09/11/2024 10:30 AM EDT Office Visit [facility] MED & PEDS [address] [place] [address] Sesar Pereyra MD [address] [place] [address] documented as of this encounter Visit Diagnoses Not on filedocumented in this encounter Additional Health Concerns Assessment Noted Time PHQ-9 Depression Total Score: 16 024 10:59 AM EDT documented as of this encounter Care Teams Religious Leader Relationship Specialty Start Date End Date Sesar Pereyra MD [address] [place] [address] PCP - General Internal Medicine 03/01/21 [facility] 03/22/24 documented as of this encounter
--- OUTSIDE RECORDS SUMMARY | 2024-07-08 10:15 | XMS_ITS | Encounter Summary ---
Author Organization [employer] Address [address] [facility] 7t [place] [address] Care Team Providers Care Survey Associate Name Role Phone Sesar Pereyra MD Primary Care Provider +1- [phone] Encounter Details Date Type Department Care Team ([facility] st Contact Info) Description 04/01/2024 Orders Only [facility] MED & PEDS [address] [place], [place] [phone] Sesar Pereyra MD [address] [place] [address] Essential hypertension (Primary Dx) Social History Tobacco [...] Upcoming Encounters Date Type Department Care Team ([facility] st Contact Info) Description 09/11/2024 10:30 AM EDT Office Visit [facility] MED & PEDS [address] [place] [address] Sesar Pereyra MD [address] [place] [address] documented as of this encounter Visit Diagnoses Diagnosis Essential hypertension- Primary Unspecified essential hypertension documented in this encounter Additional Health Concerns Assessment Noted Time PHQ-9 Depression Total Score: 16 024 10:59 AM EDT documented as of this encounter Care Teams Survey Associate Relationship Specialty Start Date End Date Sesar Pereyra MD [address] [place] [address] PCP - General Internal Medicine 03/01/21 [facility] documented as of this encounter
--- OUTSIDE RECORDS SUMMARY | 2024-07-08 10:15 | XMS_ITS | Encounter Summary ---
Author Organization [employer] Address [address] [facility] 7t [place] [address] Care Team Providers Care Tube Worker Name Role Phone Sesar Pereyra MD Primary Care Provider +1- [phone] Reason for Visit * Reason Onset Date Comments fyi 05/28/2024 Encounter Details Date Type Department Care Team ([facility] st Contact Info) Description 05/28/2024 Telephone [facility] MEDICINE [address] [place] [address] Sesar Pereyra MD [address] [place] [address] fy Social History Tobacco Use Types Packs/Day [...] Tc from [facility] with [facility] Care informing pt verbalized to her that he been taking THD Gummies 2x a day morning and afternoon. Gummies are 10mg per gummy as he's aware of what he's taking. documented in this encounter Plan of Treatment Upcoming Encounters Date Type Department Care Team ([facility] st Contact Info) Description 09/11/2024 10:30 AM EDT Office Visit [facility] MED & PEDS [address] [place] [address] Sesar Pereyra MD [address] [place] [address] documented as of this encounter Visit Diagnoses Not on filedocumented in this encounter Additional Health Concerns Assessment Noted Time PHQ-9 Depression Total Score: 16 024 10:59 AM EDT documented as of this encounter Care Teams Tube Worker Relationship Specialty Start Date End Date Sesar Pereyra MD [address] [place] [address] PCP - General Internal Medicine 03/01/21 [facility] 03/22/24 documented as of this encounter
--- OUTSIDE RECORDS SUMMARY | 2024-07-08 10:15 | XMS_ITS | Encounter Summary ---
Author Organization [employer] Address [address] [facility] 7t [place] [address] Care Team Providers Care Seal Mixing Operator Name Role Phone Sesar Pereyra MD Primary Care Provider +1- [phone] Reason for Visit * Reason Onset Date Comments Lab Orders 05/30/2024 Referral 05/30/2024 Encounter Details Date Type Department Care Team (Late st Contact Info) Description 05/30/2024 Telephone [facility] MEDICINE [address] [place] [address] Sesar Pereyra MD [address] [place] [address] Lab Orders; Referral Social History Tobacco Use [...] Description 09/11/2024 10:30 AM EDT Office Visit [facility] MED & PEDS [address] [place] [address] Sesar Pereyra MD [address] [place] [address] documented as of this encounter Visit Diagnoses Not on filedocumented in this encounter Additional Health Concerns Assessment Noted Time PHQ-9 Depression Total Score: 16 024 10:59 AM EDT documented as of this encounter Care Teams Seal Mixing Operator Relationship Specialty Start Date End Date Sesar Pereyra MD [address] [place] [address] PCP - General Internal Medicine 03/01/21 [facility] 03/22/24 documented as of this encounter
--- OUTSIDE RECORDS SUMMARY | 2024-07-08 10:15 | XMS_ITS | Encounter Summary ---
Author Organization [employer] Address [address] [facility] 7t [place] [address] Care Team Providers Care Human Services Worker Name Role Phone Sesar Pereyra MD Primary Care Provider +1- [phone] Encounter Details Date Type Department Care Team ([facility] st Contact Info) Description 04/29/2024 Orders Only [facility] CH[facility] MED & PEDS [address] [place], [place] [phone] Sesar Pereyra MD [address] [place] [address] Closed nondisplaced fracture of acromial end of [...] Upcoming Encounters Date Type Department Care Team ([facility] st Contact Info) Description 09/11/2024 10:30 AM EDT Office Visit [facility] MED & PEDS [address] [place] [address] Sesar Pereyra MD [address] [place] [address] documented as of this encounter Visit Diagnoses Diagnosis Closed nondisplaced fracture of acromial end of right clavicle, initial encounter documented in this encounter Additional Health Concerns Assessment Noted Time PHQ-9 Depression Total Score: 16 024 10:59 AM EDT documented as of this encounter Care Teams Human Services Worker Relationship Specialty Start Date End Date Sesar Pereyra MD [address] [place] [address] PCP - General Internal Medicine 03/01[facility] documented as of this encounter
--- OUTSIDE RECORDS SUMMARY | 2024-07-08 10:15 | XMS_ITS | Encounter Summary ---
Author Organization [employer] Address [address] [facility] 7t [place] [address] Care Team Providers Care Nissan Sales Consultant Name Role Phone Sesar Pereyra MD Primary Care Provider +1- [phone] Reason for Visit * Reason Onset Date Comments Med Refill 04/02/2024 Encounter Details Date Type Department Care Team ([facility] st Contact Info) Description 04/02/2024 Telephone [facility] MEDICINE [address] [place] [address] Sesar Pereyra MD [address] [place] [address] Med Refill Social History Tobacco Use Types [...] 9:39 AM EST Medication was sent to [facility] on 04/01/24 #30 with 11 refills. * Telephone Encounter - Miri Young - 04/02/2024 9:33 AM EST TC from pt requesting medication refill. Medications needing refill : metoprolol tartrate (Lopressor) 25 MG tablet To be sent to: [facility] documented in this encounter Plan of Treatment Upcoming Encounters Date Type Department Care Team (Late st Contact Info) Description 09/11/2024 10:30 AM EDT Office Visit [facility] MED & PEDS [address] [place] [address] Sesar Pereyra MD [address] [place] [address] documented as of this encounter Visit Diagnoses Not on filedocumented in this encounter Additional Health Concerns Assessment Noted Time PHQ-9 Depression Total Score: 16 024 10:59 AM EDT documented as of this encounter Care Teams Nissan Sales Consultant Relationship Specialty Start Date End Date Sesar Pereyra MD [address] [place] [address] PCP - General Internal Medicine 03/01/21 [facility] 03/22/24 documented as of this encounter
--- OUTSIDE RECORDS SUMMARY | 2024-07-08 10:15 | XMS_ITS | Encounter Summary ---
Author Organization [employer] Address [address] [facility] 7t [place] [address] Care Team Providers Care Watch Engine Operator Name Role Phone Sesar Pereyra MD Primary Care Provider +1- [phone] Reason for Visit * Reason Onset Date Comments Med Refill 04/28/2024 Encounter Details Date Type Department Care Team ([facility] st Contact Info) Description 04/28/2024 Refill [facility] MED & PEDS [address] [place] [address] Sesar Pereyra MD [address] [place] [address] Social History Tobacco Use Types Packs/Day Years [...] Description 09/11/2024 10:30 AM EDT Office Visit [facility] MED & PEDS [address] [place] [address] Sesar Pereyra MD [address] [place] [address] documented as of this encounter Visit Diagnoses Not on filedocumented in this encounter Additional Health Concerns Assessment Noted Time PHQ-9 Depression Total Score: 16 024 10:59 AM EDT documented as of this encounter Care Teams Watch Engine Operator Relationship Specialty Start Date End Date Sesar Pereyra MD [address] [place] [address] PCP - General Internal Medicine 03/01/21 [facility] 03/[facility] documented as of this encounter
--- OUTSIDE RECORDS SUMMARY | 2024-07-08 10:15 | XMS_ITS | Encounter Summary ---
Author Organization [employer] Address [address] [facility] 7t [place] [address] Care Team Providers Care Operations Controller Name Role Phone Sesar Pereyra MD Primary Care Provider +1 [phone] Reason for Visit * Reason Comments Med Refill Encounter Details Date Type Department Care Team ([facility] Contact Info) Description 10/19/2022 Refill [facility] MED & PEDS [address] [place] [address] Sesar Pereyra MD [address] [place] [address] Social History Tobacco Use Types Packs/Day Years [...] Date Type Department Care Team ([facility] Contact Info) Description 09/11/2024 10:30 AM EDT Office Visit [facility] MED & PEDS [address] [place] [address] Sesar Pereyra MD [address] [place] [address] documented as of this encounter Visit Diagnoses Not on filedocumented in this encounter Care Teams Operations Controller Relationship Specialty Start Date End Date Sesar Pereyra MD [address] [place] [address] PCP - General Internal Medicine 03/01/21 [facility] 03/22/24 documented as of this encounter
--- OUTSIDE RECORDS SUMMARY | 2024-07-08 10:15 | XMS_ITS | Clinical Summary ---
Author Organization [facility] Address [address] [place] [address] Care Team Providers Care Lightning Rod Installer Name Role Phone Nuha Galvin PA-C Primary Care Provider [phone] Source Comments PLEASE NOTE, if this patient [...] Date Sleep disorder 02/02/2015 Overview (02/02/2015): Saw [facility] and sleep on 01/15/2015: Dr. Johnson [...] once a year. In remission Seen at [facility] urology Depression with anxiety 04/01/2014 Overview (04/01/2014): Dr. Pradhan at [facility]. Is going to establish care at a new facility. PVD (peripheral vascular dis ease) with claudication ([facility]) 04/01/2014 Overview (07/04/2014): Fem-Fem done by Dr. Hensley in 2006. Sees this doctor once a year at [facility]. Follows up with this facility every 6 months. 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 4.[address] Herbert Pt [...] SAFETY NET MEDICARE - [place] Care Teams Lightning Rod Installer Relationship Specialty Start Date End Date Nuha Galvin PA-C [address] [place] [address] PCP - General 03/21/18
--- OUTSIDE RECORDS SUMMARY | 2024-07-08 10:15 | XMS_ITS | Encounter Summary ---
Author Organization [employer] Address [address] [facility] 7t [place] [address] Care Team Providers Care Wildlife Manager Name Role Phone Sesar Pereyra MD Primary Care Provider [phone]- [phone] Reason for Visit * Reason Onset Date Comments Med Refill 04/18/2024 Encounter Details Date Type Department Care Team ([facility] st Contact Info) Description 04/18/2024 Telephone [facility] MEDICINE [address] [place] [address] Sesar Pereyra MD [address] [place] [address] Med Refill Social History Tobacco Use Types [...] needing refill : To be sent to: [facility] - [place], [place] - [address] [place] [address] STE[address] documented in this encounter Plan of Treatment Upcoming Encounters Date Type Department Care Team (Late st Contact Info) Description 09/11/2024 10:30 AM EDT Office Visit [facility] MED & PEDS [address] [place] [address] Sesar Pereyra MD [address] [place] [address] documented as of this encounter Visit Diagnoses Not on filedocumented in this encounter Additional Health Concerns Assessment Noted Time PHQ-9 Depression Total Score: 16 024 10:59 AM EDT documented as of this encounter Care Teams Wildlife Manager Relationship Specialty Start Date End Date Sesar Pereyra MD [address] [place] [address] PCP - General Internal Medicine 03/01/21 [facility] 03/22/24 documented as of this encounter
--- OUTSIDE RECORDS SUMMARY | 2024-07-08 10:15 | XMS_ITS | Encounter Summary ---
Author Organization [employer] Address [address] [facility] 7 [place] [address] Care Team Providers Care Biomedical Analytical Scientist Name Role Phone Sesar Pereyra MD Primary Care Provider [phone]- [phone] Encounter Details Date Type Department Care Team ([facility] Contact Info) Description 10/13/2022 Orders Only [facility] MED & PEDS [address] [place] [address] Sesar Pereyra MD [address] [place] [address] Social History Tobacco Use Types Packs/Day Years [...] Description 09/11/2024 10:30 AM EDT Office Visit [facility] MED & PEDS [address] [place] [address] Sesar Pereyra MD [address] [place] [address] documented as of this encounter Visit Diagnoses Not on filedocumented in this encounter Care Teams Biomedical Analytical Scientist Relationship Specialty Start Date End Date Sesar Pereyra MD [address] [place] [address] PCP - General Internal Medicine 03/01/21 [facility] 03/22/24 documented as of this encounter
--- OUTSIDE RECORDS SUMMARY | 2024-07-08 10:15 | XMS_ITS | Encounter Summary ---
Author Organization [employer] Address [address] [facility] 7t [place] [address] Care Team Providers Care Control Valve Mechanic Name Role Phone Sesar Pereyra MD Primary Care Provider +1- [phone] Reason for Visit * Reason Onset Date Comments Medication Question 06/21/2024 Encounter Details Date Type Department Care Team ([facility] st Contact Info) Description 06/21/2024 Telephone [facility] MEDICINE [address] [place] [address] Sesar Pereyra MD [address] [place] [address] Medication Question Social History Tobacco Use Types [...] to Discontinue the medication. Contact Conrad at [phone] Ext [phone] The Voicemail is private so you are able to Leave a message in there. documented in this encounter Plan of Treatment Upcoming Encounters Date Type Department Care Team (Late st Contact Info) Description 09/11/2024 10:30 AM EDT Office Visit [facility] MED & PEDS [address] [place] [address] Sesar Pereyra MD [address] [place] [address] documented as of this encounter Visit Diagnoses Not on filedocumented in this encounter Additional Health Concerns Assessment Noted Time PHQ-9 Depression Total Score: 16 024 10:59 AM EDT documented as of this encounter Care Teams Control Valve Mechanic Relationship Specialty Start Date End Date Sesar Pereyra MD [address] [place] [address] PCP - General Internal Medicine 03/01/21 [facility] 03/22/24 documented as of this encounter
--- OUTSIDE RECORDS SUMMARY | 2024-07-08 10:15 | XMS_ITS | Encounter Summary ---
Author Organization [employer] Address [address] [facility] 7t [place] [address] Care Team Providers Care Electrician Helper Powerhouse Name Role Phone Sesar Pereyra MD Primary Care Provider [phone]- [phone] Reason for Visit * Reason Onset Date Comments Med Refill 04/11/2024 Encounter Details Date Type Department Care Team (Late st Contact Info) Description 04/11/2024 Refill [facility] MEDICINE [address] [place] [address] Natasha Jiang MD [address] [place] [address] Closed nondisplaced fracture of acromial end of [...] ([facility] st Contact Info) Description 09/11/2024 10:30 AM EDT Office Visit [facility] MED & PEDS [address] [place] [address] Sesar Pereyra MD [address] [place] [address] documented as of this encounter Visit Diagnoses Diagnosis Closed nondisplaced fracture of acromial end of right clavicle, initial encounter documented in this encounter Additional Health Concerns Assessment Noted Time PHQ-9 Depression Total Score: 16 024 10:59 AM EDT documented as of this encounter Care Teams Electrician Helper Powerhouse Relationship Specialty Start Date End Date Sesar Pereyra MD [address] [place] [address] PCP - General Internal Medicine 03/01/21 [facility] 03/22/24 documented as of this encounter
--- OUTSIDE RECORDS SUMMARY | 2024-07-08 10:15 | XMS_ITS | Encounter Summary ---
Author Organization [employer] Address [address] [facility] 7t [place] [address] Care Team Providers Care Land Leasing Information Clerk Name Role Phone Sesra Pereyra MD Primary Care Provider +1 [phone] Encounter Details Date Type Department Care Team (Late st Contact Info) Description 04/02/2024 Orders Only [facility] [address] [place] [address] Provider, MD Jazmyn Social History Tobacco Use [...] Description 09/11/2024 10:30 AM EDT Office Visit [facility] MED & PEDS [address] [place] [address] Sesar Pereyra MD [address] [place] [address] documented as of this encounter Procedures Procedure [...] documented as of this encounter Care Teams Land Leasing Information Clerk Relationship Specialty Start Date End Date Sesar Pereyra MD [address] [place] [address] PCP - General Internal Medicine 03/01/21 [facility] 03/22/24 documented as of this encounter
--- OUTSIDE RECORDS SUMMARY | 2024-07-08 10:15 | XMS_ITS | Encounter Summary ---
Author Organization [employer] Address [address] [facility] 7t [place] [address] Care Team Providers Care Water Softener Installer Name Role Phone Sesar Pereyra MD Primary Care Provider +1 [phone] Reason for Visit * Reason Comments Med Refill Encounter Details Date Type Department Care Team ([facility] Contact Info) Description 10/26/2022 Refill [facility] MED & PEDS [address] [place] [address] Sesar Pereyra MD [address] [place] [address] Social History Tobacco Use Types Packs/Day Years [...] Encounters Date Type Department Care Team ([facility] Contact Info) Description 09/11/2024 10:30 AM EDT Office Visit [facility] MED & PEDS [address] [place] [address] Sesar Pereyra MD [address] [place] [address] documented as of this encounter Visit Diagnoses Not on filedocumented in this encounter Care Teams Water Softener Installer Relationship Specialty Start Date End Date Sesra Pereyra MD [address] [place] [address] PCP - General Internal Medicine 03/01/21 [facility] 03/22/24 documented as of this encounter
--- OUTSIDE RECORDS SUMMARY | 2024-07-08 10:15 | XMS_ITS | Encounter Summary ---
Author Organization [employer] Address [address] [facility] 7t [place] [address] Care Team Providers Care Textile Chemist Name Role Phone Sesar Pereyra MD Primary Care Provider +1- [phone] Encounter Details Date Type Department Care Team (Late st Contact Info) Description 05/30/2024 Telephone [facility] MEDICINE [address] [place] [address] Sesar Pereyra MD [address] [place] [address] Social History Tobacco Use Types Packs/Day Years [...] Description 09/11/2024 10:30 AM EDT Office Visit [facility] MED & PEDS [address] [place] [address] Sesar Pereyra MD [address] [place] [address] documented as of this encounter Visit Diagnoses Not on filedocumented in this encounter Additional Health Concerns Assessment Noted Time PHQ-9 Depression Total Score: 16 024 10:59 AM EDT documented as of this encounter Care Teams Textile Chemist Relationship Specialty Start Date End Date Sesar Pereyra MD [address] [place] [address] PCP - General Internal Medicine 03/01/21 [facility] documented as of this encounter
--- OUTSIDE RECORDS SUMMARY | 2024-07-08 10:16 | XMS_ITS ---
Author Organization [facility] on Care Team Providers Care Territory Sales Executive Name Role Phone Vaishali Aguilar Unavailable Unavailable Noelle Edwards Unavailable Unavailable Valerie Wayne Unavailable Unavailable Allergies and adverse reactions No Known Allergies Care Team Name Role Address Phone Organization Dates Noelle Edwards PCP [address] [place] [address], [place], [address], [place] (Office): : [facility] 2020 - 02/20/2020 Vaishali Aguilar Attending Physician [address] [place] [address], [address], [place] (Office): : [facility] 2020 - 02/20/2020 Valerie Wayne Attending Physician [address] [place] [address] [place] [address], [address], [place] (Office): [facility] 2020 - 02/20/2020 Immunizations Immunization Status Vaccine Details Vaccine Code CodeSystem Date Notes Influenza completed Influenza, split virus, trivalent, injectable, contains preservative lotNumber: [id number] expiry: 10/28/2020 Mfg: Flucelavax Quadrivalent Given 0.5 ml Left Deltoid intramuscularly 141 CVX created date: 02/18/2020 consent date: 02/18/2020 administer ed date: 02/18/2020 Educated by Saray Saavedra on 02/18/2020 TB 2 Step Mantoux Skin Test completed tuberculin skin test; unspecified formulation lotNumber: [id number] expiry: 11/25/2021 Mfg: sanofi Pasteur limited Given [...] CodeSystem Concern Status 1 ANEMIA, UNSPECIFIED [address] active 2 BREAKDOWN (MECHANICAL) OF OTHER VASCULAR GRAFTS, INITIAL ENCOUNTER [address] active 3 CHRONIC KIDNEY DISEASE, STAGE 2 (MILD) [address] active 4 CHRONIC OBSTRUCTIVE PULMONARY DISEASE, UNSPECIFIED [address] active 5 COVID-[address] active 6 ENCOUNTER FOR SURGICAL AFTERCARE FOLLOWING SURGERY ON THE CIRCULATORY SYSTEM [address] active 7 ESSENTIAL (PRIMARY) HYPERTENSION [address] active 8 GENERALIZED ANXIETY DISORDER [address] active 9 MAJOR DEPRESSIVE DISORDER, RECURRENT, UNSPECIFIED [address] active 10 PAROXYSMAL ATRIAL FIBRILLATION [address] active 11 PERIPHERAL VASCULAR DISEASE, UNSPECIFIED [address] active Reason for Referral No Reasons for Referral Entered Social History Social History Observation Description Start Date End Date Code Code System Current Smoking Status Tobacco smoking consumption unknown 120568704 SNOMED CT Sex Assigned At Male 1945 6[address]32-0 [facility] Vital Signs Code Code System Vitals Name Values and Units Timing Information 63148-1 [facility] Pain Level Value=1.0 02/20/2020 9279-1 [facility] Respiratory Rate Value=18.0 Units=/m in 02/20/2020 8462-4 [facility] Blood Pressure-Diastolic Value=60 Un its=mmHg 02/20/2020 8480-6 [facility] Blood Pressure-Systolic Qcxkx=535 Un its=mmHg 02/20/2020 8310-5 [facility] Body Temperature Value=97.6 Units=?? F 02/20/2020 8867-4 [facility] Heart rate Value=73.0 Units=/min 12088-0 [facility] O2 % BldC Oximetry Value=96.0 Units= % 02/20/2020 84526-1 [facility] Weight Tcqma=760.0 Units=Lbs 8302-2 [facility] Height Value=72.0 Units=Inches 02/12/2020
--- OUTSIDE RECORDS SUMMARY | 2024-07-08 10:16 | XMS_ITS | Encounter Summary ---
Author Organization [employer] Address [address] [facility] 7t [place] [address] Care Team Providers Care Straddle Bug Operator Name Role Phone Sesar Pereyra MD Primary Care Provider [phone]- [phone] Reason for Visit * Reason Onset Date Comments Referral 01/02/2024 Encounter Details Date Type Department Care Team ([facility] st Contact Info) Description 01/02/2024 Telephone [facility] MED[facility]INE [address] [place] [address] Sesar Pereyra MD [address] [place] [address] Referral Social History Tobacco Use Types Packs/Day [...] - 01/02/2024 10:48 AM EDT Tc from [facility] the patients [facility] requesting a referral for a gerontologist and would like to be sent to at [facility] [place] documented in this encounter Plan of Treatment Upcoming Encounters Date Type Department Care Team (Late st Contact Info) Description 09/11/2024 10:30 AM EDT Office Visit [facility] MED & PEDS [address] [place] [address] Sesar Pereyra MD [address] [place] [address] documented as of this encounter Visit Diagnoses Not on filedocumented in this encounter Additional Health Concerns Assessment Noted Time PHQ-9 Depression Total Score: 16 024 10:59 AM EDT documented as of this encounter Care Teams Straddle Bug Operator Relationship Specialty Start Date End Date Sesar Pereyra MD [address] [place], [place] [address] [address] PCP - General Internal Medicine 03/01/21 [facility] 03/22/24 documented as of this encounter
--- OUTSIDE RECORDS SUMMARY | 2024-07-08 10:16 | XMS_ITS | Encounter Summary ---
Author Organization [employer] Address [address] [facility] 7t [place] [address] Care Team Providers Care Hand Flatwork Finisher Name Role Phone Sesar Pereyra MD Primary Care Provider +1- [phone] Reason for Visit * Reason Onset Date Comments Med Refill 07/04/2024 Encounter Details Date Type Department Care Team (Late st Contact Info) Description 07/04/2024 Refill [facility] MEDICINE [address] [place] [address] Sesar Pereyra MD [address] [place] [address] Social History Tobacco Use Types Packs/Day Years [...] 7.5 MG tablet To be sent to: [facility] - [place], [place] - [address] [facility] documented in this encounter Plan of Treatment Upcoming Encounters Date Type Department Care Team (Late st Contact Info) Description 09/11/2024 10:30 AM EDT Office Visit [facility] MED & PEDS [address] [place] [address] Sesar Pereyra MD [address] [place] [address] documented as of this encounter Visit Diagnoses Not on filedocumented in this encounter Additional Health Concerns Assessment Noted Time PHQ-9 Depression Total Score: 16 024 10:59 AM EDT documented as of this encounter Care Teams Hand Flatwork Finisher Relationship Specialty Start Date End Date Sesar Pererya MD [address] [place] [address] PCP - General Internal Medicine 03/01/21 [facility] 03/22/24 documented as of this encounter
--- OUTSIDE RECORDS SUMMARY | 2024-07-08 10:16 | XMS_ITS | Encounter Summary ---
Author Organization [employer] Address 75 [facility] 7 [place] [address] Care Team Providers Care Neurobiologist Name Role Phone Sesar Pereyra MD Primary Care Provider +1- [phone] Reason for Referral * Consultation (Routine) - Closed Specialty Diagnoses / Procedures Referred By Wander reynolds Referred To Contact Orthopaedic Surgery Diagnoses Low back pain at multiple sites Sesar Pereyra MD [address] [place] [address] Phone: tel: fax: [facility] [address] [place] [address] Phone: tel: Referral ID Status Reason Start Date Expiration Date V isits Requested Visits Authorized [id number] Closed Specialty Services Required 06/13/2024 06/13/2025 1 1 * Consultation (Routine) - Closed Specialty Diagnoses / Procedures Referred By Wander reynolds Referred To Contact Otolaryngology Diagnoses Tinnitus of right ear Sesar Pereyra MD [address] [place] [address] Phone: tel: fax: [facility] [address] Phone: tel: fax: Referral ID Status Reason Start Date Expiration Date V isits Requested Visits Authorized [id number] Closed Specialty Services Required 06/13/2024 06/13/2025 1 1 Reason for Visit * Reason Comments Follow-up Kidney stones Encounter Details Date Type Department Care Team ([facility] st Contact Info) Description 06/13/2024 1:00 PM EST Office Visit [facility] MED & PEDS [address] [place] [address] Sesar Pereyra MD [address] [place] [address] Kidney stone (Primary Dx); Primary hypertension; Low [...] in general. 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
--- OUTSIDE RECORDS SUMMARY | 2024-07-08 10:16 | XMS_ITS | Encounter Summary ---
Author Organization [employer] Address [address] [facility] 7t [place] [address] Care Team Providers Care Perfect Binder Setter Name Role Phone Sesar Pereyra MD Primary Care Provider +1- [phone] Encounter Details Date Type Department Care Team ([facility] st Contact Info) Description 11/01/2023 Orders Only [facility] MED & PEDS [address] [place], [place] [phone] Sesar Pereyra MD [address] [place] [address] Social History Tobacco Use Types Packs/Day Years [...] [facility] MED & PEDS [address] [place] [address] Sesar Pereyra MD [address] [place] [address] documented as of this encounter Visit Diagnoses Not on filedocumented in this encounter Additional Health Concerns Assessment Noted Time PHQ-9 Depression Total Score: 16 024 10:59 AM EDT documented as of this encounter Care Teams Perfect Binder Setter Relationship Specialty Start Date End Date Sesar Pereyra MD [address] [place] [address] PCP - General Internal Medicine 03/01[facility] documented as of this encounter
--- OUTSIDE RECORDS SUMMARY | 2024-07-08 10:16 | XMS_ITS | Encounter Summary ---
Author Organization [employer] Address [address] [facility] 7t [place] [address] Care Team Providers Care Tube And Rod Straightener Name Role Phone Sesar Pereyra MD Primary Care Provider +1 [phone] Encounter Details Date Type Department Care Team [...] Upcoming Encounters Date Type Department Care Team ([facility] st Contact Info) Description 09/11/2024 10:30 AM EDT Office Visit [facility] MED & PEDS [address] [place], [place] [phone] Sesar Pereyra MD [address] [place] [address] documented as of this encounter Procedures Procedure [...] EST Narrative 06/24/2024 8:13 AM EST ? [facility] ?[address] ?[place] [address] ? Fluoroscopy Report ? Signed ? Patient: Tho,Alex ?MR#: [id number] ?? [id number] ? : 1945 ?Acct:[id number] ? Age/Sex: 79 / M ?ADM Date: 06/19/24 ? Loc: HO.S3 ?363-2 ? Attending Dr: Tania Bernabe DRIVER'S EDUCATION INSTRUCTOR ? Ordering Physician: Royce Kothari MD ?? Date of Service: 06/21/24 ?? Procedure(s): FL guidance in OR ?? Accession Number(s): [id number] ? cc: Sesar Pereyra MD; Royce Kothari [...] DD/ 1750 ? TD/TT: 06/21/24 1750 ? Marketing Rotation Associate: ? Procedure Note Hernandez, Alonzo - 06/24/[address] [address] Fluoroscopy Report Signed Patient: Ronald Nettles#: [id number] : 7Acct:[id number] Age/Sex: 79 / MADM Date: 06/19/24 Loc: HO.S3 363-[address]: Tania Bernabe DRIVER'S EDUCATION INSTRUCTOR Ordering Physician: Royce Kothari MD Date of Service: 06/21/24 Procedure(s): FL guidance in OR Accession Number(s): [id number] cc: Sesar Pereyra MD; Royce Kothari MD [...] 06/24/24 0810 DD/ 1750 TD/TT: 06/21/24 1750 Marketing Rotation Associate: [facility] External Provider IMG IR PROCEDURES Final Result * CT Humerus (06/19/2024 8:00 PM EST) Anatomical Region Laterality Modality Computed Tomogra phy 06/19/2024 8:00 PM EST Narrative 06/19/2024 8:02 PM EST ? [facility] ?[address] ?[place] [address] ? CT Scan Report ? Signed ? Patient: Tho,Alex ?MR#: [id number] ?? [id number] ? : 1945 ?Acct:[id number] ? Age/Sex: 79 / M ?ADM Date: 02/19/25 ? Loc: HO.ED ? Attending Dr: ? Ordering Physician: Angela Moura MD ?? Date of Service: 06/19/24 ?? Procedure(s): CT humerus LT wo IV con ?? Accession Number(s): [id number] ? cc: Sesar Pereyra MD; Angela Moura MD ? Report Number: ?? [id number]: Total DLP = ??192.00 mGy-cm ? CLINICAL [...] of the dorsal margin of the glenoid. Cdhiaeig-bu-glxok ?? 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 ?? 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 ?? Please refer to separate report for x-rays of the partially included elbow. ?? Mild imaged rib deformities in the pbszy-ch-sgqx appear old/chronic. ? Impression: ?? 1. Anterior [...] ? DD/ 99 ? TD/TT: 06/19/241999 ? Marketing Rotation Associate: ? Procedure Note Alonzo Ng - 06/20/[address] [address] [address] Scan Report Signed Patient: Ronald Nettles#: [id number] : 7Acct:[id number] Age/Sex: 79 / MADM Date: 06/19/24 Loc: HO.ED Attending Dr: Ordering Physician: Angela Moura MD Date of Service: 06/19/24 Procedure(s): CT humerus LT wo IV con Accession Number(s): [id number] cc: Sesar Pereyra MD; Angela Moura MD Report Number: [id number]: Total DLP = 192.00 mGy-cm CLINICAL HISTORY: [...] of the dorsal margin of the glenoid. Qrmevfzk-cn-qtsey effusion with lipohemarthrosis of the left glenohumeral joint. 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 Please refer to separate report for x-rays of the partially includedelbow. Mild imaged rib deformities in the aaero-sh-oinh appear old/chronic. Impression: 1. Anterior dislocation of [...] in OV> 06/19/242001 DD/ 99 TD/TT: 06/19/241999 Marketing Rotation Associate: [facility] External Provider IMG CT PROCEDURES [...] ORDERAB LES Final Result Performing Organization Address City/State/[facility] Co de Phone Number [facility] [address] [place] [phone] * (ABNORMAL) CBC auto differential (06/19/2024 [...] Edited Result - Final Performing Organization Address City/State/[facility] Co de Phone Number [facility] [address] [place] [address] [phone] * XR Elbow 3+ Views Left (06/19/2024 7:16 PM EST) Anatomical Region Laterality Modality Upper Extremities, Elbow Left Radiogr aphic Imaging 06/19/2024 7:16 PM EST Narrative 06/19/2024 7:18 PM EST ? [facility] ?[address] ?[place] [address] ?XRay Report ? Signed ? Patient: Prawlucki,Alex ?MR#: [id number] ?? [id number] ? : 1945 ?Acct:[id number] ? Age/Sex: 79 / M ?ADM Date: 02/19/25 ? Loc: HO.ED ? Attending Dr: ? Ordering Physician: Angela Moura MD ?? Date of Service: 06/19/24 ?? Procedure(s): XR elbow LT min 3V ?? Accession Number(s): [id number] ? cc: Sesar Pereyra MD; Angela Moura [...] ? DD/ 15 ? TD/TT: 06/19/241915 ? Marketing Rotation Associate: ? Procedure Note Doncathieter, Image - 06/19/[address] [address] XRay Report Signed Patient: Ronald Nettles#: [id number] : 1945cct:[id number] Age/Sex: 79 / MADM Date: 06/19/24 Loc: HO.ED Attending Dr: Ordering Physician: Angela Moura MD Date of Service: 06/19/24 Procedure(s): XR elbow LT min 3V Accession Number(s): [id number] cc: Sesar Pereyra MD; Angela Moura MD [...] in OV> 06/19/241916 DD/ 15 TD/TT: 06/19/241915 Marketing Rotation Associate: [facility] External Provider IMG XR PROCEDURES Final Result * CT Head w/o Contrast (06/19/2024 7:12 PM EST) Anatomical Region Laterality Modality Head, Neck Computed Tomogra phy 06/19/2024 7:12 PM EST Narrative 06/19/2024 7:14 PM EST ? [facility] ?[address] ?[place] [address] ? CT Scan Report ? Signed ? Patient: Tho,Alex ?MR#: [id number] ?? [id number] ? : 1945 ?Acct:[id number] ? Age/Sex: 79 / M ?ADM Date: 06/19/24 ? Loc: HO.ED ? Attending Dr: ? Ordering Physician: Lonny Delgado ?? Date of Service: 06/19/24 ?? Procedure(s): CT head/brain wo IV con ?? Accession Number(s): [id number] ? cc: Sesar Pereyra MD; Lonny Delgado ? Report Number: ?? [id number]: Total DLP = ??652.00 mGy-cm ? CLINICAL [...] ? DD/ 11 ? TD/TT: 06/19/241911 ? Marketing Rotation Associate: ? Procedure Note Donotuseinterpreter, Image - 06/19/[address] [place] [address] [address] Scan Report Signed Patient: Ronald Nettles#: [id number] : 1945cct:[id number] Age/Sex: 79 / MADM Date: 06/19/24 Loc: HO.ED Attending Dr: Ordering Physician: Lonny Delgado Date of Service: 06/19/24 Procedure(s): CT head/brain wo IV con Accession Number(s): [id number] cc: Sesar Pereyra MD; Lonny Delgado Report Number: [id number]: Total DLP = 652.00 mGy-cm CLINICAL HISTORY: [...] in OV> 06/19/241912 DD/ 11 TD/TT: 06/19/241911 Marketing Rotation Associate: [facility] External Provider IMG CT PROCEDURES Final Result * Lipase (06/19/2024 6:17 PM EST) Lipase 17 8 - 78 U/L [facility] 06/19/2024 6:17 PM EST 06/19/2024 6:19 PM EST Generic External Data Provider LAB BLOOD ORDERAB LES Final Result Performing Organization Address City/State/[facility] Co de Phone Number [facility] [address] [place] [phone] * (ABNORMAL) Comprehensive Metabolic Panel (06/19/2024 [...] Kidney Disea se: Estimated GFR < 60 mL/min/1.21m4Wtjymz Kidney Disease: Estimated GFR < 15 mL/min/1.73m2 [...] Final Result [facility] [address] [place] [address] [phone] documented in this encounter Visit Diagnoses Not on filedocumented in this encounter Additional Health Concerns Assessment Noted Time PHQ-9 Depression Total Score: 16 07/18/2 024 10:59 AM EDT documented as of this encounter Care Teams Tube And Rod Straightener Relationship Specialty Start Date End Date Sesar Pereyra MD [address] [place] [address] PCP - General Internal Medicine 03/01/21 [facility] 03/22/24 documented as of this encounter
--- OUTSIDE RECORDS SUMMARY | 2024-07-08 10:16 | XMS_ITS | Encounter Summary ---
Author Organization [employer] Address [address] [facility] 7t [place] [address] Care Team Providers Care Web Application Dev Specialist Name Role Phone Sesar Pereyra MD Primary Care Provider +1 [phone] Encounter Details Date Type Department Care Team [...] Upcoming Encounters Date Type Department Care Team ([facility] st Contact Info) Description 09/11/2024 10:30 AM EDT Office Visit [facility] MED & PEDS [address] [place] [address] Sesar Pereyra MD [address] [place] [address] documented as of this encounter Procedures Procedure [...] Adult Primary Care ?[address] ? [place] [address] ?XRay Report ? Signed ? Patient: Tho,Alex ?MR#: [id number] ?? [id number] ? : 1945 ?Acct:[id number] ? Age/Sex: 79 / M ?ADM Date: //25 ? Loc: HO.HMGCX ? Attending Dr: Teresa Marie PA-C ? Ordering Physician: Teresa Marie PA-C ?? Date of Service: 06/19/24 ?? Procedure(s): XR shoulder LT min 2V ?? Accession Number(s): [id number] ? cc: Sesar Pereyra MD; Teresa Marie [...] ??06/19/2024 04:21 PM EST RP ?? Workstation: [id number] ? Dictated By: ?Jaquan Guillen MD ? Signed By: ?<Electronically signed by Jaquan Guillen MD in OV> ?06/19/24 1621 ? DD/ 1600 ? TD/TT: 06/19/24 1611 ? Metal Trimmer: ? Procedure Note Alonzo Ng - 06/19/2024 [facility] [address] [place] [address] XRay Report Signed Patient: Alex Nettles#: [id number] : 7Acct:[id number] Age/Sex: 79 / MADM Date: 06/19/24 Loc: HO.HMGCX Attending Dr: Teresa Marie PA-C Ordering Physician: Teresa Marie PA-C Date of Service: 06/19/24 Procedure(s): XR shoulder LT min 2V Accession Number(s): [id number] cc: Sesar Pereyra MD; Teresa Marie PA-C [...] 06/19/24 1621 DD/ 1600 TD/TT: 06/19/24 1611 Metal Trimmer: [facility] External Provider IMG XR PROCEDURES Final Result * Calcium (06/12/2024 12:09 PM EST) Calcium 9.1 8.4 - 10.2 mg/dL [facility] 06/12/2024 12:0 9 PM EST 06/12/2024 12:14 PM EST Generic External Data Provider LAB BLOOD ORDERAB LES Final Result [facility] [address] [place] [phone] * Creatinine, Serum (06/12/2024 12:09 PM EST) Creatinine, Serum 1.13 0.5 - 1.4 mg/dL [facility] Estimated Glomerular Filt Rate >60 [facility] Comment:Chronic Kidney Disea se: Estimated GFR < 60 mL/min/1.01t7Emkasx Kidney Disease: Estimated GFR < 15 mL/min/1.73m2 06/12/2024 12:0 9 PM EST 06/12/2024 12:14 PM EST us Generic External Data Provider LAB BLOOD ORDERAB LES Final Result Performing Organization Address [facility] Co [place] Phone Number [facility] [address] [place] [phone] * (ABNORMAL) BUN (Blood Urea Nitrogen) (06/12/2024 12:09 PM EST) Urea Nitrogen (BUN) 18(H) 9 - 16 mg/dL [facility] 06/12/2024 12:0 9 PM EST 06/12/2024 12:14 PM EST Generic External Data Provider LAB BLOOD ORDERAB LES Final Result Performing Organization Address City/[facility] Co de Phone Number [facility] [address] [place] [phone] * (ABNORMAL) Electrolyte Panel (06/12/2024 12:09 PM EST) Sodium 142 135 - 145 mmol/L [facility] Potassium 4.0 3.3 - 5.1 mmol/L [facility] Comment:Slight Hemolysis.Int erpret result with caution. Chloride 109(H) 96 - 108 mmol/L [facility] Carbon Dioxide 24 22 - 29 mmol/L [facility] Anion Gap 13 12 - 20 [facility] 06/12/2024 12:0 9 PM EST 06/12/2024 12:14 PM EST us Generic External Data Provider LAB BLOOD ORDERAB LES Final Result [facility] [address] [place] [address] [phone] documented in this encounter Visit Diagnoses Not on filedocumented in this encounter Additional Health Concerns Assessment Noted Time PHQ-9 Depression Total Score: 16 024 10:59 AM EDT documented as of this encounter Care Teams Web Application Dev Specialist Relationship Specialty Start Date End Date Sesar Pereyra MD [address] [place] [phone] PCP - General Internal Medicine 03/01/21 [facility] 03/22/24 documented as of this encounter
--- OUTSIDE RECORDS SUMMARY | 2024-07-08 10:16 | XMS_ITS | Encounter Summary ---
Author Organization [employer] Address [address] [facility] 7t [place] [address] Care Team Providers Care Best Worker Name Role Phone Sesar Pereyra MD Primary Care Provider [phone]- [phone] Reason for Visit * Reason Comments Med Refill Encounter Details Date Type Department Care Team ([facility] st Contact Info) Description 08/29/[address] [facility] MEDICINE [address] [place] [address] Sesar Pereyra MD [address] [place] [address] Social History Tobacco Use Types Packs/Day Years [...] [facility] PEDS [address] [place] [address] Sesar Pereyra MD [address] [place] [address] documented as of this encounter Visit Diagnoses Not on filedocumented in this encounter Additional Health Concerns Assessment Noted Time PHQ-9 Depression Total Score: 16 024 10:59 AM EDT documented as of this encounter Care Teams Best Worker Relationship Specialty Start Date End Date Sesar Pereyra MD [address] [place] [address] PCP - General Internal Medicine [facility]01[facility] documented as of this encounter
--- OUTSIDE RECORDS SUMMARY | 2024-07-08 10:16 | XMS_ITS | Encounter Summary ---
Author Organization [employer] Address [address] [facility] 7t [place] [address] Care Team Providers Care Astro Technician Name Role Phone Sesar Pereyra MD Primary Care Provider [phone]- [phone] Encounter Details Date Type Department Care Team (Late st Contact Info) Description 06/24/2024 Orders Only [facility] MEDICINE [address] [place] [address] Sesar Pereyra MD [address] [place] [address] Paroxysmal atrial fibrillation (CMS/HCC) (Primary Dx) Social [...] ([facility] st Contact Info) Description 09/11/2024 10:30 AM EDT Office Visit [facility] & PEDS [address] [place] [address] Sesar Pereyra MD [address] [place] [address] documented as of this encounter Visit Diagnoses Diagnosis Paroxysmal atrial fibrillation (CMS/HCC)- Primary Atrial fibrillation documented in this encounter Additional Health Concerns Assessment Noted Time PHQ-9 Depression Total Score: 16 024 10:59 AM EDT documented as of this encounter Care Teams Astro Technician Relationship Specialty Start Date End Date Sesar Pereyra MD [address] [place] [address] PCP - General Internal Medicine [facility]01[facility] documented as of this encounter
--- OUTSIDE RECORDS SUMMARY | 2024-07-08 10:16 | XMS_ITS | Encounter Summary ---
Author Organization [employer] Address [address] [facility] 7t [place] [address] Care Team Providers Care Fibre Technologist Name Role Phone Sesar Pereyra MD Primary Care Provider [phone] Encounter Details Date Type Department Care Team [...] [facility] MED & PEDS [address] [place] [address] Sesar Pereyra MD [address] [place] [address] documented as of this encounter Visit Diagnoses Not on filedocumented in this encounter Additional Health Concerns Assessment Noted Time PHQ-9 Depression Total Score: 16 024 10:59 AM EDT documented as of this encounter Care Teams Fibre Technologist Relationship Specialty Start Date End Date Sesar Pereyra MD [address] [place] [address] PCP - General Internal Medicine [facility] documented as of this encounter
--- OUTSIDE RECORDS SUMMARY | 2024-07-08 10:16 | XMS_ITS | Encounter Summary ---
Author Organization [employer] Address [address] [facility] 7t [place] [address] Care Team Providers Care Lab Rep Name Role Phone Sesar Pereyra MD Primary Care Provider [phone]- [phone] Reason for Visit * Reason Comments Med Refill Encounter Details Date Type Department Care Team ([facility] st Contact Info) Description 10/30/2023 Refill [facility]EDS [address] [place], [place] [phone] Sesar Pereyra MD [address] [place] [address] PVD (peripheral vascular disease) (CMS/HCC); Longstanding persistent [...] ([facility] st Contact Info) Description 09/11/2024 10:30 AM EDT Office Visit [facility] [address] [place] [address] Sesar Pereyra MD [address] [place] [address] documented as of this encounter Visit Diagnoses Diagnosis PVD (peripheral vascular disease) (CMS/HCC) Unspecified peripheral vascular disease Longstanding persistent atrial fibrillation (CMS/HCC) documented in this encounter Additional Health Concerns Assessment Noted Time PHQ-9 Depression Total Score: 16 024 10:59 AM EDT documented as of this encounter Care Teams Lab Rep Relationship Specialty Start Date End Date Sesar Pereyra MD [address] [place] [address] PCP - General Internal Medicine [facility] documented as of this encounter
--- OUTSIDE RECORDS SUMMARY | 2024-07-08 10:16 | XMS_ITS | Encounter Summary ---
Author Organization [employer] Address [address] [facility] 7 [place] [address] Care Team Providers Care Director Of Brand Marketing Name Role Phone Sesar Pereyra MD Primary Care Provider [phone]- [phone] Reason for Visit * Reason Comments Med Refill Encounter Details Date Type Department Care Team ([facility] Contact Info) Description 06/10/[address] [facility] MED & PEDS [address] [place] [address] Sesar Pereyra MD [address] [place] [address] Primary insomnia Social History Tobacco Use Types [...] Upcoming Encounters Date Type Department Care Team ([facility] Contact Info) Description 09/11/2024 10:30 AM EDT Office Visit [facility] MED & PEDS [address] [place] [address] Sesar Pereyra MD [address] [place] [address] documented as of this encounter Visit Diagnoses Diagnosis Primary insomnia Persistent disorder of initiating or maintaining sleep documented in this encounter Care Teams Director Of Brand Marketing Relationship Specialty Start Date End Date Sesar Pereyra MD [address] [place] [address] PCP - General Internal Medicine 03/01/21 [facility] 03/22/24 documented as of this encounter
--- OUTSIDE RECORDS SUMMARY | 2024-07-08 10:16 | XMS_ITS | Encounter Summary ---
Author Organization [employer] Address [address] [facility] [address] [place] [address] Care Team Providers Care Sponge Packer Name Role Phone Sesar Pereyra MD Primary Care Provider [phone]- [phone] Reason for Referral * Consultation (Routine) - Closed Specialty Diagnoses / Procedures Referred By Contac t Referred To Contact Geriatric Medicine Diagnoses Memory disturbance Sesar Pereyra MD [address] [place] [address] Phone: tel: fax: [facility] [address] [place] [address] Phone: tel: fax: Referral ID Status Reason Start Date Expiration Date V isits Requested Visits Authorized [id number] Closed Specialty Services Required 01/11/2024 01/10/2025 1 1 Encounter Details Date Type Department Care Team (Late st Contact Info) Description 01/11/2024 Orders Only [facility] MED & P[facility]S [address] [place], [place] [phone] Sesar Pereyra MD [address] [place], [place] [phone] Memory disturbance (Primary Dx) Social History Tobacco [...] Description 09/11/2024 10:30 AM EDT Office Visit [facility] MED & PEDS [address] [place] [address] Sesar Pereyra MD [address] [place] [address] Scheduled Referrals Name Type Priority Associated Diagnoses Orde r Schedule Referral to Geriatrics Outpatient Referral Routine Memory disturbance Expected: 01/11/2024 (Approximate), Expires: 01/10/2025 documented as of this encounter Visit Diagnoses Diagnosis Memory disturbance- Primary Memory loss documented in this encounter Additional Health Concerns Assessment Noted Time PHQ-9 Depression Total Score: 16 024 10:59 AM EDT documented as of this encounter Care Teams Sponge Packer Relationship Specialty Start Date End Date Sesar Pereyra MD [address] [place] [address] PCP - General Internal Medicine [facility] documented as of this encounter
== END 2024-07-05 09:30 | disposition home or self-care (01) ==
LOC: HO.HOSX 09:29
PROVIDERS: Visit Provider Physician Assistant
DX: M25.512 Pain in left shoulder (principal); S43.005A Unspecified dislocation of left shoulder joint, initial encounter; S42.302A Unspecified fracture of shaft of humerus, left arm, initial encounter for closed fracture; S42.102A Fracture of unspecified part of scapula, left shoulder, initial encounter for closed fracture
CPT/HCPCS: 73030; 99212

== ENCOUNTER 2024-07-05 09:56 | Outpatient (AMB) | payer MEDICARE, OTHER, SELFPAY ==
--- NOTE | 2024-07-05 09:58 | MHC.OFFVIS ---
Intake Visit Reasons: PO L reduction and bankart repair DOS 06/21/24 Intake Note: Alex is a 79 year old right hand dominant male who presents today for a post op appointment s/p Left Arthroscopic bankhart repair with closed reduction 06/21/24 NE. Patient reports having pain. Allergies No Known Allergies [No Known Allergies*] Allergy (Verified 07/05/24 10:20) HPI HPI PO L reduction and bankart repair DOS 06/21/24: Details: Mr. Nettles is a 79-year-old right-hand dominant male who presents to the office today status post closed reduction with arthroscopic Bankart repair on 06/21/[address] Kothari. Patient presents to the office today in the sling with the abduction pillow. He reports that he needs a refill of his pain medication. [facility] Medical History Coronary artery disease Hypersomnia Snoring Neuropathy Atherosclerotic cardiovascular disease History of alcohol abuse History of COVID-19 On beta jose at home COPD (chronic obstructive pulmonary disease) On anticoagulant therapy History of atrial fibrillation PVD (peripheral vascular disease) Renal cell carcinoma Hypertension Depression Anxiety Diverticulitis Surgical History History of intestinal surgery History of kidney surgery H/O cardiac catheterization History of colectomy S/P femoral-femoral bypass surgery Social History Household Members: Significant Other Housing: House Are you a primary healthcare or medical to a significant other at home: No Do you presently have visiting nurse or other home services: No Alcohol intake: never Patient Tobacco Use Status: Former Tobacco user Tobacco use type: Cigarette Second Hand Smoke Exposure: No Substance Use Type: Marijuana Advance Directives Date on File: 06/09/21 service: Yes Current occupational status: retired Current occupation: right hand dominant Review of Systems Const All systems reviewed & are unremarkable except as noted in HPI and below Physical Exam Const General: cooperative, healthy appearing and no acute distress Resp Effort & Inspection: normal respiratory effort and able to speak in complete sentences Cardio Rate: regular rate Peripheral pulses: Peripheral pulses 2+ throughout Skin Lesions: no lesions Rashes: no rashes Extrem Other: Left shoulder incision sites are clean dry and intact. Sutures intact. No surrounding erythema or drainage. No signs of infection. Forward flexion abduction to 45 degrees. External rotation to neutral. NVI. Assessment & Plan Assessment & Plan (1) Shoulder pain, left: Code(s): M25.512 - Pain in left shoulder Category: Medical Qualifiers: Chronicity: acute Qualified Code(s): M25.512 - Pain in left shoulder (2) Dislocation of left glenohumeral joint: Code(s): S43.005A - Unspecified dislocation of left shoulder joint, initial encounter Category: Medical (3) Fracture, humerus: Code(s): S42.309A - Unspecified fracture of shaft of humerus, unspecified arm, initial encounter for closed fracture Category: Medical (4) Closed left scapular fracture: Code(s): S42.102A - Fracture of unspecified part of scapula, left shoulder, initial encounter for closed fracture Category: Medical Plan Mr. Nettles is a 79-year-old right-hand dominant male who presents to the office today status post closed reduction with arthroscopic Bankart repair on 06/21/[address] Kothari. Patient presents to the office today in the sling with the abduction pillow. He reports that he needs a refill of his pain medication. On those today I discussed the case with Dr. Kothari who was available but did not see the patient with me in a collaborative treatment plan was created. The patient will remain in a sling for the next 6 weeks. He will attend physical therapy. He should avoid any external rotation or extension of the left upper extremity. Sutures are removed and Steri-Strips were applied. He was placed back into the sling with the abduction pillow. He will follow up in [address] Kothari, sooner if needed. X-rays of the left shoulder which were obtained while in the office today and were reviewed by me, Regine Falcon PA-C, revealed no acute dislocation, successful Bankart repair. Orders: Orders XR shoulder LT min 2V Today M25.519 - Pain in unspecified shoulder PT Evaluation and Treatment Today S42.102A - Fracture of unspecified part of scapula, left shoulder, initial encounter for closed fracture, S42.143A - Displaced fracture of glenoid cavity of scapula, unspecified shoulder, initial encounter for closed fracture, S42.153A - Displaced fracture of neck of scapula, unspecified shoulder, initial encounter for closed fracture, S42.309A - Unspecified fracture of shaft of humerus, unspecified arm, initial encounter for closed fracture, S43.005A - Unspecified dislocation of left shoulder joint, initial encounter Coding Level of Care Code Global ([id number]) Diagnoses Acute pain of left shoulder M25.512 Chronicity: acute Dislocation of left glenohumeral joint S43.005A Fracture, humerus S42.309A Closed left scapular fracture S42.102A
--- OUTSIDE RECORDS SUMMARY | 2024-07-05 11:04 | XMS_ITS | Encounter Summary ---
Author Organization [facility] Address [address] [place] [address] Care Team Providers Care Counter Clerk Tractor Parts Name Role Phone Yolande Nicholas DO Primary Care Pro vider Unavailable Anuj Priest DO Primary Care Provider [facility], Pcp Primary Care Provider Unavailabl e Reason for Visit * Reason Onset Date Comments Faxed Order 09/20/2019 Encounter Details Date Type Department Care Team Description 09/20/2019 Telephone Adult [address] [address] Yolande Nicholas DO Faxed Order Social History [...] to be signed and faxed back to [phone] . documented in this encounter Plan of Treatment Not on file documented as of this encounter Visit Diagnoses Not on filedocumented in this encounter Care Teams Counter Clerk Tractor Parts Relationship Specialty Start Date End Date Yolande Nicholas DO PCP - General Internal Medicine 12/03/18 10/08/20 Anuj Priest DO PCP - General Internal Medicine 10/09/[address] [place] [address], Pcp PCP - General Internal Medicine 06/17/21 documented as of this encounter
--- OUTSIDE RECORDS SUMMARY | 2024-07-05 11:04 | XMS_ITS | Encounter Summary ---
Author Organization [facility] Address [address] [place] [address] Care Team Providers Care Specialty Trimmer Name Role Phone Yolande Nicholas DO Primary Care Pro vider Unavailable Anuj Priest DO Primary Care Provider Judy Gardner, Pcp Primary Care Provider Unavailabl e Encounter Details Date Type Department Care Team Description 10/07/2019 Chemical Production Technician Report Medical Records [address] [place] [address] Dhruv Garcia MD Social History Tobacco Use [...] on filedocumented in this encounter Care Teams Specialty Trimmer Relationship Specialty Start Date End Date Yolande Nicholas DO PCP - General Internal Medicine 12/03/18 10/08/20 Anuj Priest DO PCP - General Internal Medicine 10/09/20 Jj, Pcp PCP - General Internal Medicine 06/17/21 documented as of this encounter
--- OUTSIDE RECORDS SUMMARY | 2024-07-05 11:04 | XMS_ITS | Encounter Summary ---
Author Organization [facility] Address [address] [place] [address] Care Team Providers Care Copy Messenger Name Role Phone Ghassan Burciaga MD Primary Care Provider Unavail able Pierre Arevalo MD Primary Care Provider Judy vailable Gerson Dawson MD Primary Care Provider Unavail able [facility], Pcp Primary Care Provider Unavailabl e Coleman Mccarthy MD Primary Care Provider Unavaila Ayo Demarco MD Primary Care Provider [phone] Annalee Jones MD Primary Care Provider Un available Kim Banegas Yolande DO Primary Care Pro vider Unavailable Anuj Priest DO Primary Care Provider Judy vailable [facility], Pcp Primary Care Provider Unavailabl e Encounter Details Date Type Department Care Team Description 06/25/2011 Pt. Non Urgent Medic al Question Medicine/Pediatrics - [address] [id number] Ghassan Burciaga MD Social History Tobacco Use [...] on filedocumented in this encounter Care Teams Copy Messenger Relationship Specialty Start Date End Date Ghassan Burciaga MD PCP - General 07/24/00 05/06/13 Pierre Arevalo MD PCP - General Internal Medicine 05/07/13 4 Gerson Dawson MD PCP - General Internal Medicine 01/30/14 03/20/14 [facility], Pcp PCP - General Internal Medicine 03/21/14 05/06/14 Coleman Mccarthy MD PCP - General Internal Medicine 05/07/14 07/18/16 Ayo Carpio MD [address] [place] [address] PCP - General Internal Medicine 07/19/16 01/05/17 Annalee Jones MD [address] [place] [address] PCP - General Internal Medicine 01/06/17 12/02/18 Yolande Nicholas, [address] [address] PCP - General Internal Medicine 12/03/18 10/08/20 Anuj Priest, [address] [address] PCP - General Internal Medicine 10/09/20 06/16/21 [facility], Pcp PCP - General Internal Medicine 06/17/21 documented as of this encounter
--- OUTSIDE RECORDS SUMMARY | 2024-07-05 11:04 | XMS_ITS | Encounter Summary ---
Author Organization [facility] Address [address] [place] [address] Care Team Providers Care Dimensional Inspector Name Role Phone Yolande Nicholas DO Primary Care Pro vider Unavailable Anuj Priest DO Primary Care Provider [facility], Pcp Primary Care Provider Unavailabl e Reason for Visit * Reason Onset Date Comments [facility]NA Call 09/16/2019 Encounter Details Date Type Department Care Team Description 09/16/2019 Telephone Internal Medicine - [address], [address] [place], [place] [id number] Alana Stinson MD [address] [place] [phone] VNA Call Social History Tobacco Use [...] 09/16/2019 10:55 AM EDT Message routed to [facility]. * Telephone Encounter - Ava Hull - 09/16/2019 10:19 AM EDT [facility]NA CALL Which [facility] office is calling? [facility] Full name of caller: Kalie The caller [...] on filedocumented in this encounter Care Teams Dimensional Inspector Relationship Specialty Start Date End Date Yolande Nicholas DO PCP - General Internal Medicine 12/03/18 10/08/20 Anuj Priest DO PCP - General Internal Medicine 10/09/20 2 [facility], Pcp PCP - General Internal Medicine 06/17/21 documented as of this encounter
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
--- OUTSIDE RECORDS SUMMARY | 2024-07-05 11:04 | XMS_ITS | Encounter Summary ---
Author Organization [facility] Address [address] [place] [address] Care Team Providers Care Vascular Manager Name Role Phone Yolande Nicholas DO Primary Care Pro vider Unavailable Anuj Priest DO Primary Care Provider Judy Gardner, Pcp Primary Care Provider Unavailabl e Encounter Details Date Type Department Care Team Description 10/08/2019 Home Health Certification Medical Records [address] [place] [address] Home, [facility] [address] [place] [address] Social History Tobacco Use Types Packs/Day Years [...] on filedocumented in this encounter Care Teams Vascular Manager Relationship Specialty Start Date End Date Yolande Nicholas DO PCP - General Internal Medicine 12/03/18 10/08/20 Anuj Priest DO PCP - General Internal Medicine 10/09/20 Molly Gardner, Pcp PCP - General Internal Medicine 06/17/21 documented as of this encounter
--- OUTSIDE RECORDS SUMMARY | 2024-07-05 11:04 | XMS_ITS | Encounter Summary ---
[facility] Address [address] [place] [address] Care Team Providers Care Client Coordinator Name Role Phone Ghassan Burciaga MD Primary Care Provider Unavail able Pierre Arevalo MD Primary Care Provider Judy vailable Gerson Dawson MD Primary Care Provider Unavail able [facility], Pcp Primary Care Provider Unavailabl e Coleman Mccarthy MD Primary Care Provider Unavaila Ayo Demarco MD Primary Care Provider [phone] Annalee Jones MD Primary Care Provider Un available Kim Banegas Yolande DO Primary Care Pro vider Unavailable Anuj Priest DO Primary Care Provider Judy vailable [facility], Pcp Primary Care Provider Unavailabl e Encounter Details Date Type Department Care Team Description 06/25/2011 Pt. Non Urgent Medic al Question Medicine/Pediatrics - [address] [address] Ghassan Burciaga MD Social History Tobacco Use [...] on filedocumented in this encounter Care Teams Client Coordinator Relationship Specialty Start Date End Date Ghassan Burciaga MD PCP - General 07/24/00 05/06/13 Pierre Arevalo MD PCP - General Internal Medicine 05/07/13 4 Gerson Dawson MD PCP - General Internal Medicine 01/30/14 03/20/14 [facility], Pcp PCP - General Internal Medicine 03/21/14 05/06/14 Coleman Mccarthy MD PCP - General Internal Medicine 05/07/14 07/18/16 Ayo Carpio MD [address] [place] [address] PCP - General Internal Medicine 07/19/16 01/05/17 Annalee Jones MD [address] [place] [address] PCP - General Internal Medicine 01/06/17 12/02/18 Yolande Nicholas, [address] [address] PCP - General Internal Medicine 12/03/18 10/08/20 Anuj Priest, [address] [address] PCP - General Internal Medicine 10/09/20 06/16/21 [facility], Pcp PCP - General Internal Medicine 06/17/21 documented as of this encounter
--- OUTSIDE RECORDS SUMMARY | 2024-07-05 11:04 | XMS_ITS | Encounter Summary ---
Author Organization [facility] Address [address] [place] [address] Care Team Providers Care Case Advocate Name Role Phone Ghassan Burciaga MD Primary Care Provider Unavail able Pierre Arevalo MD Primary Care Provider Judy vailable Gerson Dawson MD Primary Care Provider Unavail able [facility], Pcp Primary Care Provider Unavailabl e Coleman Mccarthy MD Primary Care Provider Unavaila Ayo Demarco MD Primary Care Provider [phone] Annalee Jones MD Primary Care Provider Un available Kim Banegas Yolande DO Primary Care Pro vider Unavailable Anuj Priest DO Primary Care Provider Judy vailable [facility], Pcp Primary Care Provider Unavailabl e Encounter Details Date Type Department Care Team Description 06/25/2011 Pt. Non Urgent Medic al Question Medicine/Pediatrics - [address] [address] Ghassan Burciaga MD Social History Tobacco Use [...] on filedocumented in this encounter Care Teams Case Advocate Relationship Specialty Start Date End Date Ghassan Burciaga MD PCP - General 07/24/00 05/06/13 Pierre Arevalo MD PCP - General Internal Medicine 05/07/13 4 Gerson Dawson MD PCP - General Internal Medicine 01/30/14 03/20/14 [facility], Pcp PCP - General Internal Medicine 03/21/14 05/06/14 Coleman Mccarthy MD PCP - General Internal Medicine 05/07/14 07/18/16 Ayo Carpio MD [address] [place] [address] PCP - General Internal Medicine 07/19/16 01/05/17 Annalee Jones MD [address] [place] [address] PCP - General Internal Medicine 01/06/17 12/02/18 Yolande Nicholas, [address] [address] PCP - General Internal Medicine 12/03/18 10/08/20 Anuj Priest, [address] [address] PCP - General Internal Medicine 10/09/20 06/16/21 [facility], Pcp PCP - General Internal Medicine 06/17/21 documented as of this encounter
--- OUTSIDE RECORDS SUMMARY | 2024-07-05 11:04 | XMS_ITS | Encounter Summary ---
Author Organization [facility] Address [address] [place] [address] Care Team Providers Care Clean Up Helper Banquet Name Role Phone Yolande Nicholas DO Primary Care Pro vider Unavailable Anuj Priest DO Primary Care Provider [facility], Pcp Primary Care Provider Unavailabl e Reason for Visit * Reason Onset Date Comments Abdominal Pain 10/08/2019 Hernia 10/08/2019 Encounter Details Date Type Department Care Team Description 10/08/2019 Telephone Adult Medicine [address] [address] Yolande Nicholas DO Abdominal Pain; Hernia Social [...] back and can be reached back at [phone] * Telephone Encounter - Minerva Kan R.N. - 10/08/2019 3:06 PM EDT Ame is not with him. Call pt on his cell phone , left a message * Telephone Encounter - Lavonne Bernabe - 10/08/2019 3:04 PM EDT Ame calling back and would like CB at [phone] * Telephone Encounter - Sharmaine Bose - 10/08/2019 2:57 PM EDT Ame returning call * Telephone Encounter - Minerva Kan R.N. - 10/08/2019 2:40 PM EDT I left a message for the patient to return my call. * Telephone Encounter - Valerie Hgaen - 10/08/2019 1:37 PM EDT Symptoms patient [...] abroad? NO ??? Have you been to [place] or in contact with anyone who has recently been in [place]? NO If pain or injury related was it due to an accident at work or from a motor vehicle accident? NO If yes, gather 3rd constitution party insurance information Date of accident/Injury: How long has patient had these symptoms?: PCP: Yolande Gomez Payor: GIO - MEDICARE / Plan: MEDICARE FFS $5 KARI MESA [id number] / Product Type: MEDICARE [id number] documented in this encounter Plan of Treatment Not on file documented as of this encounter Visit Diagnoses Not on filedocumented in this encounter Care Teams Clean Up Helper Banquet Relationship Specialty Start Date End Date Yolande Nicholas DO PCP - General Internal Medicine 12/03/18 10/08/20 Anuj Priest DO PCP - General Internal Medicine 10/09/20 2 Jj, Pcp PCP - General Internal Medicine 06/17/21 documented as of this encounter
--- OUTSIDE RECORDS SUMMARY | 2024-07-05 11:04 | XMS_ITS | Encounter Summary ---
Author Organization [facility] Address [address] [place] [address] Care Team Providers Care Operations Director Name Role Phone Yolande Nicholas DO Primary Care Pro vider Unavailable Anuj Priest DO Primary Care Provider [facility], Pcp [facility] Encounter Details Date Type Department Care Team Description 09/26/2019 Pt. Non Urgent Medical Question Adult Medicine [address] [address] Alana Stinson MD [address] [place] [phone] Social History Tobacco Use Types Packs/Day [...] him, told him needs to fu / [employer] mer[employer] cards for both. Can consider change [...] on filedocumented in this encounter Care Teams Operations Director Relationship Specialty Start Date End Date Yolande Nicholas DO PCP - General Internal Medicine 12/03/18 10/08/20 Anuj Priest DO PCP - General Internal Medicine 10/09/20 2 [facility], Pcp PCP - General Internal Medicine 06/17/21 documented as of this encounter
--- OUTSIDE RECORDS SUMMARY | 2024-07-05 11:04 | XMS_ITS | Encounter Summary ---
Author Organization [facility] Address [address] [place] [address] Care Team Providers Care Oil Bay Technician Name Role Phone Yolande Nicholas DO Primary Care Pro vider Unavailable Anuj Priest DO Primary Care Provider Judy Gardner, Pcp Primary Care Provider Unavailabl e Encounter Details Date Type Department Care Team Description 10/07/2019 Pt. Non Urgent Medic al Question Adult Medicine [address] [address] Yolande Nicholas DO Social History Tobacco Use [...] on filedocumented in this encounter Care Teams Oil Bay Technician Relationship Specialty Start Date End Date Yolande Nicholas DO PCP - General Internal Medicine 12/03/18 10/08/20 Anuj Priest DO PCP - General Internal Medicine 10/09/20 Molly Gardner, Pcp PCP - General Internal Medicine 06/17/21 documented as of this encounter
--- OUTSIDE RECORDS SUMMARY | 2024-07-05 11:05 | XMS_ITS | Encounter Summary ---
Author Organization [facility] Address [address] [place] [address] Care Team Providers Care Section 8 Property Manager Name Role Phone Yolande Nicholas DO Primary Care Pro vider Unavailable Anuj Priest DO Primary Care Provider [facility], Pcp Primary [facility] Provider [facility] Encounter Details Date Type Department Care Team Description 07/02/2019 Pt. Non Urgent Medic al Question Adult Medicine [address] [address] Yolande Nicholas DO Social History Tobacco Use Types Packs/Day Years Used Date Smoking Tobacco: Former Cigarettes 1 35 Q uit: 07/26/2005 Smokeless Tobacco: Never Alcohol Use Standard Drinks/Week Comments Yes 0 (1 standard drink = 0.6 oz pure alcohol) 1 1/2 week ago. has now stopped Sex Assigned at Date Recorded Not on file documented as of this encounter Progress Notes * Yolande Bangeas DO - 07/02/2019 10:27 AM EST This [...] on filedocumented in this encounter Care Teams Section 8 Property Manager Relationship Specialty Start Date End Date Yolande Nicholas DO PCP - General Internal Medicine 12/03/18 10/08/20 Anuj Priest DO PCP - General Internal Medicine 10/09/[address] [place] [address], Pcp PCP - General Internal Medicine 06/17/21 documented as of this encounter
--- OUTSIDE RECORDS SUMMARY | 2024-07-05 11:05 | XMS_ITS | Encounter Summary ---
Author Organization [facility] Address [address] [place] [address] Care Team Providers Care Cook Larder Name Role Phone Yolande Nicholas DO Primary Care Pro vider Unavailable Anuj Priest DO Primary Care Provider [facility], Pcp Primary Care Provider Unavailabl e Reason for Visit * Reason Onset Date Comments Faxed Order 12/20/2019 [facility] Encounter Details Date Type Department Care Team Description 12/20/2019 Telephone Adult Medicine [address] [address] Yolande Nicholas DO Faxed Order ([facility]) [...] on filedocumented in this encounter Care Teams Cook Larder Relationship Specialty Start Date End Date Yolande Nicholas DO PCP - General Internal Medicine 12/03/18 10/08/20 Anuj Priest DO PCP - General Internal Medicine 10/09/20 2 [facility], Pcp PCP - General Internal Medicine 06/17/21 documented as of this encounter
--- OUTSIDE RECORDS SUMMARY | 2024-07-05 11:05 | XMS_ITS | Encounter Summary ---
Author Organization [facility] Address [address] [place] [address] Care Team Providers Care Superintendent Radio Communications Name Role Phone Ghassan Burciaga MD Primary Care Provider Unavail able Pierre Arevalo MD Primary Care Provider Judy vailable Gerson Dawson MD Primary Care Provider Unavail able [facility], Pcp Primary Care Provider Unavailabl e Coleman Mccarthy MD Primary Care Provider Unavaila Ayo Demarco MD Primary Care Provider [phone] Annalee Jones MD Primary Care Provider Un available Pascual Nicholasabela DO Primary Care Pro vider Unavailable Anuj Priest DO Primary Care Provider Judy vailable [facility], Pcp Primary Care Provider Unavailabl e Encounter Details Date Type Department Care Team Description 09/27/2012 Release of Information Medical Records [address] [place] [id number] Abstract, Provider Social History Tobacco Use Types [...] on filedocumented in this encounter Care Teams Superintendent Radio Communications Relationship Specialty Start Date End Date Ghassan Burciaga MD PCP - General 07/24/00 05/06/13 Pierre Arevalo MD PCP - General Internal Medicine 05/07/13 4 Gerson Dawson MD PCP - General Internal Medicine 01/30/14 03/20/14 [facility], Pcp PCP - General Internal Medicine 03/21/14 05/06/14 Coleman Mccarthy MD PCP - General Internal Medicine 05/07/14 07/18/16 Ayo Carpio MD [address] [place], [place] [id number] PCP - General Internal Medicine 07/19/16 01/05/17 Annalee Jones MD [address] [place], [place] [id number] PCP - General Internal Medicine 01/06/17 12/02/18 Yolande Nicholas DO [address] [place] [address] PCP - General Internal Medicine 12/03/18 10/08/20 Anuj Priest DO [address] [place] [address] PCP - General Internal Medicine 10/09/20 06/16/21 [facility], Pcp PCP - General Internal Medicine 06/17/21 documented as of this encounter
--- OUTSIDE RECORDS SUMMARY | 2024-07-05 11:05 | XMS_ITS | Encounter Summary ---
Author Organization [facility] Address [address] [place] [address] Care Team Providers Care Automatic Print Developer Name Role Phone Yolande Nicholas DO Primary Care Pro vider Unavailable Anuj Priest DO Primary Care Provider Judy Gardner, Pcp Primary Care Provider Unavailabl e Encounter Details Date Type Department Care Team Description 10/23/2019 Release of Information Medical Records [address] [place] [id number] Abstract, Provider Social History Tobacco Use Types [...] on filedocumented in this encounter Care Teams Automatic Print Developer Relationship Specialty Start Date End Date Yolande Nicholas DO PCP - General Internal Medicine 12/03/18 10/08/20 Anuj Priest DO PCP - General Internal Medicine 10/09/20 2 Jj, Pcp PCP - General Internal Medicine 06/17/21 documented as of this encounter
--- OUTSIDE RECORDS SUMMARY | 2024-07-05 11:05 | XMS_ITS | Encounter Summary ---
Author Organization [employer] Address [address] [facility] 7t [place] [address] Care Team Providers Care Misdraw Hand Name Role Phone Sesar Pereyra MD Primary Care Provider [phone] Reason for Visit * Reason Onset Date Comments Medication Question 06/21/2024 Encounter Details Date Type Department Care Team ([facility] st Contact Info) Description 06/21/2024 Telephone [facility] MEDICINE [address] [place] [address] Sesar Pereyra MD [address] [place] [address] Medication Question Social History Tobacco Use Types [...] encounter Miscellaneous Notes * Telephone Encounter - Saravanan Patinonandez - 06/21/2024 9:35 AM EST Tc from Pt Pharmacy requesting to see if Doctor is able to Prescribe med Multaq 400 MG, Twice a Day. Conrad from the Pharmacy is stating that this medication was prescribed by the Hospital. She is requesting if PCP would like for the Pt to still be on medication that she needs a New script to be sent to the Pharmacy and if he doesn't want then to give her a call to let her know to Discontinue the medication. Contact Conrad at [phone] Ext [phone] The Voicemail is private so you are able to Leave a message in there. documented in this encounter Plan of Treatment Upcoming Encounters Date Type Department Care Team (Late st Contact Info) Description 09/11/2024 10:30 AM EDT Office [facility] MED [facility]ED[facility] [address] [place] [address] Sesar Pereyra MD [address] [place] [address] documented as of this encounter Visit Diagnoses Not on filedocumented in this encounter Additional Health Concerns Assessment Noted Time PHQ-9 Depression Total Score: 16 024 10:59 AM EDT documented as of this encounter Care Teams Misdraw Hand Relationship Specialty Start Date End Date Sesar Pereyra MD [address] [place] [address] PCP - General Internal Medicine 03/01/21 [facility] 03/22/24 documented as of this encounter
--- OUTSIDE RECORDS SUMMARY | 2024-07-05 11:05 | XMS_ITS | Encounter Summary ---
Author Organization [facility] Address [address] [place] [address] Care Team Providers Care Travel Med Surg Rn Name Role Phone Yolande Nicholas DO Primary Care Pro vider Unavailable Anuj Priest DO Primary Care Provider [facility], Pcp Primary Care Provider Unavailabl e Reason for Visit * Reason Onset Date Comments Faxed Order 02/21/2020 Encounter Details Date Type Department Care Team Description 02/21/2020 Telephone Adult [address] [address] Yolande Nicholas DO Faxed Order Social History [...] on filedocumented in this encounter Care Teams Travel Med Surg Rn Relationship Specialty Start Date End Date Yolande Nicholas DO PCP - General Internal Medicine 12/03/18 10/08/20 Anuj Priest DO PCP - General Internal Medicine 10/09/[address] [place] [address], Pcp PCP - General Internal Medicine 06/17/21 documented as of this encounter
--- OUTSIDE RECORDS SUMMARY | 2024-07-05 11:05 | XMS_ITS | Encounter Summary ---
Author Organization [employer] Address [address] [facility] [address] [place] [address] Care Team Providers Care Data Processing Manager Name Role Phone Sesar Pereyra MD Primary Care Provider [phone] Reason for Visit * Reason Onset Date Comments Med Refill 04/28/2024 Encounter Details Date Type Department Care Team ([facility] st Contact Info) Description 04/28/2024 Refill [facility] MED & PEDS [address] [place] [address] Sesar Pereyra MD [address] [place] [address] Social History Tobacco Use Types Packs/Day Years [...] Upcoming Encounters Date Type Department Care Team ([facility] st Contact Info) Description 09/11/2024 10:30 AM EDT Office Visit [facility] MED & PEDS [address] [place] [address] Sesar Pereyra MD [address] [place] [address] documented as of this encounter Visit Diagnoses Not on filedocumented in this encounter Additional Health Concerns Assessment Noted Time PHQ-9 Depression Total Score: 16 024 10:59 AM EDT documented as of this encounter Care Teams Data Processing Manager Relationship Specialty Start Date End Date Sesar Pereyra MD [address] [place] [address] PCP - General Internal Medicine 03/01/21 [facility] documented as of this encounter
--- OUTSIDE RECORDS SUMMARY | 2024-07-05 11:05 | XMS_ITS | Encounter Summary ---
Author Organization [employer] Address [address] [facility] 7t [place] [address] Care Team Providers Care Office Administrator Name Role Phone Sesar Pereyra MD Primary Care Provider [phone] Reason for Visit * Reason Onset Date Comments Med Refill 04/26/2024 Encounter Details Date Type Department Care Team ([facility] st Contact Info) Description 04/26/[address] [facility] MEDICINE [address] [place] [address] Sesar Pereyra MD [address] [place] [address] Med Refill Social History Tobacco Use Types [...] 7.5 MG tablet To be sent to: [id number] - [place], [place] - [address] documented in this encounter Plan of Treatment Upcoming Encounters Date Type Department Care Team (Late st Contact Info) Description 09/11/2024 10:30 AM EDT Office Visit [facility] MED [facility]EDS [address] [place] [address] Sesar Pereyra MD [address] [place] [address] documented as of this encounter Visit Diagnoses Not on filedocumented in this encounter Additional Health Concerns Assessment Noted Time PHQ-9 Depression Total Score: 16 024 10:59 AM EDT documented as of this encounter Care Teams Office Administrator Relationship Specialty Start Date End Date Sesar Pereyra MD [address] [place] [address] PCP - General Internal Medicine 03/01/21 [facility] 03/22/24 documented as of this encounter
--- OUTSIDE RECORDS SUMMARY | 2024-07-05 11:05 | XMS_ITS | Encounter Summary ---
Author Organization [employer] Address [address] [facility] 7t [place] [address] Care Team Providers Care Medical Office Assistant Instructor Name Role Phone Sesar Pereyar MD Primary Care Provider [phone] [phone] Encounter Details Date Type Department Care Team [...] 10:30 AM EDT Office Visit [facility] [address] [place] [address] Sesar Pereyra MD [address] [place] [address] documented as of this encounter Visit Diagnoses Not on filedocumented in this encounter Additional Health Concerns Assessment Noted Time PHQ-9 Depression Total Score: 16 024 10:59 AM EDT documented as of this encounter Care Teams Medical Office Assistant Instructor Relationship Specialty Start Date End Date Sesar Pereyra MD [address] [place] [address] PCP - General Internal Medicine [facility] documented as of this encounter
--- OUTSIDE RECORDS SUMMARY | 2024-07-05 11:05 | XMS_ITS | Encounter Summary ---
Author Organization [facility] Address [address] [place] [address] Care Team Providers Care Underwriting Account Representative Name Role Phone Yolande Nicholas DO Primary Care Pro vider Unavailable Anuj Priest DO Primary Care Provider Judy Gardner, Pcp Primary Care Provider Unavailabl e Encounter Details Date Type Department Care Team Description [facility] Medical Records [address] [place] [address] Abstract, Provider Social History Tobacco Use Types [...] on filedocumented in this encounter Care Teams Underwriting Account Representative Relationship Specialty Start Date End Date Yolande Nicholas DO PCP - General Internal Medicine 12/03/18 10/08/20 Anuj Priest DO PCP - General Internal Medicine 10/09/20 2 Jj, Pcp PCP - General Internal Medicine 06/17/21 documented as of this encounter
--- OUTSIDE RECORDS SUMMARY | 2024-07-05 11:05 | XMS_ITS | Encounter Summary ---
Author Organization [employer] [facility] Address [address] [place] [address] Care Team Providers Care Air Conditioning Manager Name Role Phone Yolande Nicholas DO Primary Care Pro vider Unavailable Anuj Priest DO Primary Care Provider Judy álvarez [facility], Pcp Primary Care Provider Unavailabl e Reason for Visit * Reason Comments E-prescribe Rx Request Encounter Details Date Type Department Care Team Description 12/25/2019 Refill Adult Medicine [address] [address] Alana Stinson MD [address] [place] [phone] E-prescribe Rx Request Social History Tobacco [...] filedocumented in this encounter Care Teams Air Conditioning Manager Relationship Specialty Start Date End Date Yolande Nicholas DO PCP - General Internal Medicine 12/03/18 10/08/20 Anuj Priest DO PCP - General Internal Medicine 10/09/20 2 [facility], Pcp PCP - General Internal Medicine 06/17/21 documented as of this encounter
--- OUTSIDE RECORDS SUMMARY | 2024-07-05 11:05 | XMS_ITS | Encounter Summary ---
Author Organization [facility] Address [address] [place] [address] Care Team Providers Care Appeals Rn Name Role Phone Yolande Nicholas DO Primary Care Pro vider Unavailable Anuj Priest DO Primary Care Provider [facility], Pcp Primary Care Provider Unavailabl e Encounter Details Date Type Department Care Team Description 09/04/2019 Telephone Internal Medicine - [address], [address] [place] [address] Alana Stinson MD [address] [place] [phone] Social History Tobacco Use Types Packs/Day [...] PM EDT Spoke to someone from [facility] re[facility] they will send discharge notes. * Telephone Encounter - Alana Stinson MD - 09/04/2019 11:48 AM EDT PLS GET DISCHARGE SUMMARY FROM [facility] [place], documented in this encounter Plan of Treatment Not on file documented as of this encounter Visit Diagnoses Not on filedocumented in this encounter Care Teams Appeals Rn Relationship Specialty Start Date End Date Yolande Nicholas DO PCP - General Internal Medicine 12/03/18 10/08/20 Anuj Priest DO PCP - General Internal Medicine 10/09/20 2 [facility], Pcp PCP - General Internal Medicine 06/17/21 documented as of this encounter
--- OUTSIDE RECORDS SUMMARY | 2024-07-05 11:05 | XMS_ITS | Encounter Summary ---
Author Organization [facility] Address [address] [place] [address] Care Team Providers Care Apiculture Teacher Name Role Phone Yolande Nicholas DO Primary Care Pro vider Unavailable Anuj Priest DO Primary Care Provider Judy Gardner, Pcp Primary Care Provider Unavailabl e Encounter Details Date Type Department Care Team Description 01/03/2020 Budget Analyst Report Medical Records [address] [place] [address] Cedrick Siddiqui Social History Tobacco Use Types [...] on filedocumented in this encounter Care Teams Apiculture Teacher Relationship Specialty Start Date End Date Yolande Nicholas DO PCP - General Internal Medicine 12/03/18 10/08/20 Anuj Priest DO PCP - General Internal Medicine 10/09/20 2 Jj, Pcp PCP - General Internal Medicine 06/17/21 documented as of this encounter
--- OUTSIDE RECORDS SUMMARY | 2024-07-05 11:05 | XMS_ITS | Encounter Summary ---
Author Organization [employer] [facility] Address [address] [place] [address] Care Team Providers Care Integration Aide Name Role Phone Ghassan Burciaga MD Primary Care Provider Unavail able Pierre Arevalo MD Primary Care Provider Judy vailable Gerson Dawson MD Primary Care Provider Unavail able [facility], Pcp Primary Care Provider Unavailabl e Coleman Mccarthy MD Primary Care Provider Unavaila Ayo Demarco MD Primary Care Provider [phone] Annalee Jones MD Primary Care Provider Un available Pascual Nicholasabela DO Primary Care Pro vider Unavailable Anuj Priest DO Primary Care Provider Judy vailable [facility], Pcp Primary Care Provider Unavailabl e Encounter Details Date Type Department Care Team Description 08/26/2011 Infrastructure Engineer Report Medical Records [address] [place] [address] Anuj Easton Social History Tobacco Use Types [...] on filedocumented in this encounter Care Teams Integration Aide Relationship Specialty Start Date End Date Ghassan Burciaga MD PCP - General 07/24/00 05/06/13 Pierre Arevalo MD PCP - General Internal Medicine 05/07/13 4 Gerson Dawson MD PCP - General Internal Medicine 01/30/14 03/20/14 [facility], Pcp PCP - General Internal Medicine 03/21/14 05/06/14 Coleman Mccarthy MD PCP - General Internal Medicine 05/07/14 07/18/16 Ayo Carpio MD [address] [place], [place] [phone] PCP - General Internal Medicine 07/19/16 01/05/17 Annalee Jones MD [address] [place], [place] [phone] PCP - General Internal Medicine 01/06/17 12/02/18 Yolande Nicholas DO [address] [place] [address] PCP - General Internal Medicine 12/03/18 10/08/20 Anuj Priest DO [address] [place] [address] PCP - General Internal Medicine 10/09/20 06/16/21 [facility], Pcp PCP - General Internal Medicine 06/17/21 documented as of this encounter
--- OUTSIDE RECORDS SUMMARY | 2024-07-05 11:05 | XMS_ITS | Encounter Summary ---
Author Organization [employer] Address [address] [facility] 7t [place] [address] Care Team Providers Care Paper Mill Manager Name Role Phone Sesar Pereyra MD Primary Care Provider [phone] Encounter Details Date Type Department Care Team [...] Upcoming Encounters Date Type Department Care Team ([facility] st Contact Info) Description 09/11/2024 10:30 AM EDT Office Visit [facility] MED & PEDS [address] [place] [address] Sesar Pereyra MD [address] [place] [address] documented as of this encounter Procedures Procedure [...] Adult Primary Care ?[address] ? [place] [address] ?XRay Report ? Signed ? Patient: Tho,Alex ?MR#: [id number] ?? [id number] ? : 1945 ?Acct:[id number] ? Age/Sex: 79 / M ?ADM Date: //25 ? Loc: HO.HMGCX ? Attending Dr: Teresa Marie PA-C ? Ordering Physician: Teresa Marie PA-C ?? Date of Service: 06/19/24 ?? Procedure(s): XR shoulder LT min 2V ?? Accession Number(s): [id number] ? cc: Sesar Pereyra MD; Teresa Marie [...] ??06/19/2024 04:21 PM EST RP ?? [id number] ? Dictated By: ?Jaquan Guillen MD ? Signed By: ?<Electronically signed by Jaquan Guillen MD in OV> ?06/19/24 1621 ? DD/ 1600 ? TD/TT: 06/19/24 1611 ? Rn Palliative: ? Procedure Note Alonzo Ng - 06/19/2024 [facility] Adult Primary Care [address] [place] [address] XRay Report Signed Patient: Alex Nettles#: [id number] : 7Acct:[id number] Age/Sex: 79 / MADM Date: 06/19/24 Loc: HO.HMGCX Attending Dr: Teresa Marie PA-C Ordering Physician: Teresa Marie PA-C Date of Service: 06/19/24 Procedure(s): XR shoulder LT min 2V Accession Number(s): [id number] cc: Sesar Pereyra MD; Teresa Marie PA-C [...] 06/19/24 1621 DD/ 1600 TD/TT: 06/19/24 1611 Rn Palliative: [facility] External Provider IMG XR PROCEDURES Final Result * Calcium (06/12/2024 12:09 PM EST) Calcium 9.1 8.4 - 10.2 mg/dL [facility] 06/12/2024 12:0 9 PM EST 06/12/2024 12:14 PM EST Generic External Data Provider LAB BLOOD ORDERAB LES Final Result [facility] [address] [place] [phone] * Creatinine, Serum (06/12/2024 12:09 PM EST) Creatinine, Serum 1.13 0.5 - 1.4 mg/dL [facility] Estimated Glomerular Filt Rate >60 [facility] Comment:Chronic Kidney Disea se: Estimated GFR < 60 mL/min/1.78k1Pogbcq Kidney Disease: Estimated GFR < 15 mL/min/1.73m2 06/12/2024 12:0 9 PM EST 06/12/2024 12:14 PM EST us Generic External Data Provider LAB BLOOD ORDERAB LES Final Result Performing Organization Address [facility] Co tx Phone Number [facility] [address] [place] [phone] * (ABNORMAL) BUN (Blood Urea Nitrogen) (06/12/2024 12:09 PM EST) Urea Nitrogen (BUN) 18(H) 9 - 16 mg/dL [facility] 06/12/2024 12:0 9 PM EST 06/12/2024 12:14 PM EST Generic External Data Provider LAB BLOOD ORDERAB LES Final Result Performing Organization Address City/[facility] Co de Phone Number [facility] [address] [place] [phone] * (ABNORMAL) Electrolyte Panel (06/12/2024 12:09 PM EST) Sodium 142 135 - 145 mmol/L [facility] Potassium 4.0 3.3 - 5.1 mmol/L [facility] Comment:Slight Hemolysis.Int erpret result with caution. Chloride 109(H) 96 - 108 mmol/L [facility] Carbon Dioxide 24 22 - 29 mmol/L [facility] Anion Gap 13 12 - 20 [facility] 06/12/2024 12:0 9 PM EST 06/12/2024 12:14 PM EST us Generic External Data Provider LAB BLOOD ORDERAB LES Final Result [facility] [address] [place] [phone] [phone] documented in this encounter Visit Diagnoses Not on filedocumented in this encounter Additional Health Concerns Assessment Noted Time PHQ-9 Depression Total Score: 16 024 10:59 AM EDT documented as of this encounter Care Teams Paper Mill Manager Relationship Specialty Start Date End Date Sesar Pereyra MD [address] [place] [address] PCP - General Internal Medicine 03/01/21 [facility] 03/22/24 documented as of this encounter
--- OUTSIDE RECORDS SUMMARY | 2024-07-05 11:05 | XMS_ITS | Encounter Summary ---
Author Organization [employer] [facility] Address [address] [place] [address] Care Team Providers Care Molder Helper Name Role Phone Ghassan Burciaga MD Primary Care Provider Unavail able Pierre Arevalo MD Primary Care Provider Judy vailable Gerson Dawson MD Primary Care Provider Unavail able [facility], Pcp Primary Care Provider Unavailabl e Coleman Mccarthy MD Primary Care Provider Unavaila Ayo Demarco MD Primary Care Provider [phone] Annalee Jones MD Primary Care Provider Un available Pascual Nicholasabela DO Primary Care Pro vider Unavailable Anuj Priest DO Primary Care Provider Judy vailable [facility], Pcp Primary Care Provider Unavailabl e Encounter Details Date Type Department Care Team Description 09/21/2012 Passenger Booking Clerk Report Medical Records [address] [place] [address] Anuj Easton Social History Tobacco Use Types [...] on filedocumented in this encounter Care Teams Molder Helper Relationship Specialty Start Date End Date Ghassan Burciaga MD PCP - General 07/24/00 05/06/13 Pierre Arevalo MD PCP - General Internal Medicine 05/07/13 4 Gerson Dawson MD PCP - General Internal Medicine 01/30/14 03/20/14 [facility], Pcp PCP - General Internal Medicine 03/21/14 05/06/14 Coleman Mccarthy MD PCP - General Internal Medicine 05/07/14 07/18/16 Ayo Carpio MD [address] [place], [place] [phone] PCP - General Internal Medicine 07/19/16 01/05/17 Annalee Jones MD [address] [place], [place] [phone] PCP - General Internal Medicine 01/06/17 12/02/18 Yolande Nicholas DO [address] [place] [address] PCP - General Internal Medicine 12/03/18 10/08/20 Anuj Priest DO [address] [place] [address] PCP - General Internal Medicine 10/09/20 06/16/21 [facility], Pcp PCP - General Internal Medicine 06/17/21 documented as of this encounter
--- OUTSIDE RECORDS SUMMARY | 2024-07-05 11:05 | XMS_ITS | Encounter Summary ---
Author Organization [employer] Address [address] [facility] 7t [place] [address] Care Team Providers Care Broaching Machine Operator Name Role Phone Sesar Pereyra MD Primary Care Provider [phone] Encounter Details Date Type Department Care Team (Late st Contact Info) Description 06/24/2024 Orders Only [facility] [address] [place] [address] Sesar Pereyra MD [address] [place] [address] Paroxysmal atrial fibrillation (CMS/HCC) (Primary Dx) Social History Tobacco Use Types [...] Upcoming Encounters Date Type Department Care Team ([facility] st Contact Info) Description 09/11/2024 10:30 AM EDT Office Visit [facility] [address] [place] [address] Sesar Pereyra MD [address] [place] [address] documented as of this encounter Visit Diagnoses Diagnosis Paroxysmal atrial fibrillation (CMS/HCC)- Primary Atrial fibrillation documented in this encounter Additional Health Concerns Assessment Noted Time PHQ-9 Depression Total Score: 16 024 10:59 AM EDT documented as of this encounter Care Teams Broaching Machine Operator Relationship Specialty Start Date End Date Sesar Pereyra MD [address] [place] [address] PCP - General Internal Medicine 03/01/21 [facility] 03/22/[facility] documented as of this encounter
--- OUTSIDE RECORDS SUMMARY | 2024-07-05 11:05 | XMS_ITS | Encounter Summary ---
Author Organization [facility] Address [address] [place] [address] Care Team Providers Care Video Production Intern Name Role Phone Yolande Nicholas DO Primary Care Pro vider Unavailable Anuj Priest DO Primary Care Provider Judy Gardner, Pcp Primary Care Provider Unavailabl e Encounter Details Date Type Department Care Team Description 11/28/2019 Vmware Architect Report Medical Records [address] [place] [address] Cedrick Siddiqui Social History Tobacco Use Types [...] on filedocumented in this encounter Care Teams Video Production Intern Relationship Specialty Start Date End Date Yolande Nicholas DO PCP - General Internal Medicine 12/03/18 10/08/20 Anuj Priest DO PCP - General Internal Medicine 10/09/20 2 Jj, Pcp PCP - General Internal Medicine 06/17/21 documented as of this encounter
--- OUTSIDE RECORDS SUMMARY | 2024-07-05 11:05 | XMS_ITS | Encounter Summary ---
Author Organization [employer] Address [address] [facility] [address] [facility] [place] [address] Care Team Providers Care Electrician Bus Name Role Phone Sesar Pereyra MD Primary Care Provider [phone]- [phone] Reason for Referral * Consultation (Routine) - Closed Specialty Diagnoses / Procedures Referred By Wander reynolds Referred To Contact Orthopaedic Surgery Diagnoses Low back pain at multiple sites Sesar Pereyra MD [address] [place] [address] Phone: tel: fax: [facility] Orthopedics [address] [place] [address] Phone: tel: Referral ID Status Reason Start Date Expiration Date V isits Requested Visits Authorized [id number] Closed Specialty Services Required 06/13/2024 06/13/2025 1 1 * Consultation (Routine) - Closed Specialty Diagnoses / Procedures Referred By Wander reynolds Referred To Contact Otolaryngology Diagnoses Tinnitus of right ear Sesar Pereyra MD [address] [place] [address] Phone: tel: fax: [facility] [address] Phone: tel: fax: Referral ID Status Reason Start Date Expiration Date V isits Requested Visits Authorized [id number] Closed Specialty Services Required 06/13/2024 06/13/2025 1 1 Reason for Visit * Reason Comments Follow-up Kidney stones Encounter Details Date Type Department Care Team ([facility] st Contact Info) Description 06/13/2024 1:00 PM EST Office Visit [facility] [address] [place] [address] Sesar Pereyra MD [address] [place] [address] Kidney stone (Primary Dx); Primary hypertension; Low [...] in general. 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 03/22/24 documented as of this encounter
--- OUTSIDE RECORDS SUMMARY | 2024-07-05 11:05 | XMS_ITS | Encounter Summary ---
Author Organization [employer] Address [address] [facility] 7t [place] [address] Care Team Providers Care Specimen Collector Name Role Phone Sesar Pereyra MD Primary Care Provider [phone]- [phone] Encounter Details Date Type Department Care Team ([facility] st Contact Info) Description 04/29/2024 Orders Only [facility] MED & PEDS [address] [place], [place] [phone] Sesar Pereyra MD [address] [place] [address] Closed nondisplaced fracture of acromial end of [...] Upcoming Encounters Date Type Department Care Team ([facility] st Contact Info) Description 09/11/2024 10:30 AM EDT Office Visit [facility] MED & PEDS [address] [place] [address] Sesar Pereyra MD [address] [place] [address] documented as of this encounter Visit Diagnoses Diagnosis Closed nondisplaced fracture of acromial end of right clavicle, initial encounter documented in this encounter Additional Health Concerns Assessment Noted Time PHQ-9 Depression Total Score: 16 024 10:59 AM EDT documented as of this encounter Care Teams Specimen Collector Relationship Specialty Start Date End Date Sesar Pereyra MD [address] [place] [address] PCP - General Internal Medicine 03/01/21 [facility] 03/22/24 documented as of this encounter
--- OUTSIDE RECORDS SUMMARY | 2024-07-05 11:05 | XMS_ITS | Encounter Summary ---
Author Organization [facility] Address [address] [place] [address] Care Team Providers Care Sand Hauler Name Role Phone Ghassan Burciaga MD Primary Care Provider Unavail able Pierre Arevalo MD Primary Care Provider Judy vailable Gerson Dawson MD Primary Care Provider Unavail able [facility], Pcp Primary Care Provider Unavailabl e Coleman Mccarthy MD Primary Care Provider Unavaila Ayo Demarco MD Primary Care Provider [phone] Annalee Jones MD Primary Care Provider Un available Pascual Nicholasabela DO Primary Care Pro vider Unavailable Anuj Priest DO Primary Care Provider Judy vailable [facility], Pcp Primary Care Provider Unavailabl e Encounter Details Date Type Department Care Team Description 04/30/2007 Hospital Medical Records [address] [place] [address] Anuj Easton Jr. [facility] [address] [place], [place] [phone] Social History Tobacco Use Types Packs/Day Years [...] on filedocumented in this encounter Care Teams Sand Hauler Relationship Specialty Start Date End Date Ghassan Burciaga MD PCP - General 07/24/00 05/06/13 Pierre Arevalo MD PCP - General Internal Medicine 05/07/13 4 Gerson Dawson MD PCP - General Internal Medicine 01/30/14 03/20/14 [facility], Pcp PCP - General Internal Medicine 03/21/14 05/06/14 Coleman Mccarthy MD PCP - General Internal Medicine 05/07/14 07/18/16 Ayo Carpio MD [address] [place] [address] PCP - General Internal Medicine 07/19/16 01/05/17 Annalee Jones MD [address] [place] [address] PCP - General Internal Medicine 01/06/17 12/02/18 Yolande Nicholas, DO [address] [place] [address] PCP - General Internal Medicine 12/03/18 10/08/20 Anuj Priest, DO [address] [place] [address] PCP - General Internal Medicine 10/09/20 06/16/21 [facility], Pcp PCP - General Internal Medicine 06/17/21 documented as of this encounter
--- OUTSIDE RECORDS SUMMARY | 2024-07-05 11:05 | XMS_ITS | Encounter Summary ---
Author Organization [facility] Address [address] [place] [address] Care Team Providers Care Handbag Frames Inspector Name Role Phone Yolande Nicholas DO Primary Care Pro vider Unavailable Anuj Priest DO Primary Care Provider [facility], Pcp Primary Care Provider Unavailabl e Reason for Visit * Reason Onset Date Comments Faxed Order 01/03/2020 Encounter Details Date Type Department Care Team Description 01/03/2020 Telephone Adult [address] [address] Yolande Nicholas DO Faxed Order Social History [...] Fabi Orourke - 01/03/2020 2:00 PM EDT Ngco Gallegos would like Dr. Yolande Gomez's signature for plan of care documented in this encounter Plan of Treatment Not on file documented as of this encounter Visit Diagnoses Not on filedocumented in this encounter Care Teams Handbag Frames Inspector Relationship Specialty Start Date End Date Yolande Nicholas DO PCP - General Internal Medicine 12/03/18 10/08/20 Anuj Priest DO PCP - General Internal Medicine 10/09/[address] [place] [address], Pcp PCP - General Internal Medicine 06/17/21 documented as of this encounter
--- OUTSIDE RECORDS SUMMARY | 2024-07-05 11:05 | XMS_ITS | Encounter Summary ---
Author Organization [facility] Address [address] [place] [address] Care Team Providers Care Spindraw Operator Name Role Phone Yolande Nicholas DO Primary Care Pro vider Unavailable Anuj Priest DO Primary Care Provider Judy Gardner, Pcp Primary Care Provider Unavailabl e Encounter Details Date Type Department Care Team Description 12/19/2019 Hospital Medical Records [address] [place] [address] Cedrick Siddiqui Social History Tobacco Use Types [...] on filedocumented in this encounter Care Teams Spindraw Operator Relationship Specialty Start Date End Date Yolande Nicholas DO PCP - General Internal Medicine 12/03/18 10/08/20 Anuj Priest DO PCP - General Internal Medicine 10/09/20 2 Jj, Pcp PCP - General Internal Medicine 06/17/21 documented as of this encounter
--- OUTSIDE RECORDS SUMMARY | 2024-07-05 11:05 | XMS_ITS | Encounter Summary ---
Author Organization [employer] Address [address] [facility] [address] [place] [address] Care Team Providers Care Film Recordist Name Role Phone Sesar Pereyra MD Primary Care Provider [phone] Encounter Details Date Type Department Care Team (Late st Contact Info) Description 06/19/2024 Orders Only GENERIC EXTERNAL DATA DEPARTMENT Provider, [...] [facility] [address], [place] [phone] Sesar Pereyra MD [address] [place] [address] documented as of this encounter Procedures Procedure Name Priority Date/Time Associated Diagnosis Comments FL GUIDANCE IN OR Routine 06/21/2024 5:[address] HUMERUS LEFT WO CONTRAST Routine 06/19/2024 8:00 PM EST CBC WITH AUTO DIFFERENTIAL Routine 06/19/2024 7:57 PM EST PROTHROMBIN TIME-INR Routine 06/19/2024 7:57 PM EST XR ELBOW 3+ VIEWS LEFT Routine 7:[address] HEAD WO CONTRAST Routine 06/19/2024 7 :12 PM EST LIPASE Routine 06/19/2024 6:17 PM EST COMPREHENSIVE METABOLIC PANEL Routine 06/19/2024 6:17 PM EST documented in this encounter Results * FL Guidance in OR (06/21/2024 5:50 PM EST) Anatomical Region Laterality Modality X-Ray Angiograph y 06/21/2024 5:50 PM EST Narrative 06/24/2024 8:13 AM EST ? [facility] ?[address] ?[place] [address] ? Fluoroscopy Report ? Signed ? Patient: Tho,Alex ?MR#: [id number] ?? [id number] ? : 1945 ?Acct:[id number] ? Age/Sex: 79 / M ?ADM Date: 06/19/24 ? Loc: HO.S3 ?363-2 ? Attending Dr: Tania Bernabe PLAN MANAGER ? Ordering Physician: Royce Kothari MD ?? Date of Service: 06/21/24 ?? Procedure(s): FL guidance in OR ?? Accession Number(s): [id number] ? cc: Sesar Pereyra MD; Royce Kothari MD ? EXAMINATION: ??FL GUIDANCE ONLY ? HISTORY: fracture Left proximal humerus ? COMPARISON: ?? Comparison is made with the prior examination of the left shoulder ?? dated 06/19/2024. ? TECHNIQUE: ?? Fluoroscopy time: 0.1 minutes. ?? Cumulative Dose: 1.87 mGy. ?? DAP: 0.0264 mGym2 ?? Images: 3. ? FINDINGS: ?? Images demonstrate interval relocation of the previously seen anterior ?? dislocation of the humeral head. The previously described glenoid ?? fracture is partially visualized. ? FL/FL guidance in OR ?? IMPRESSION: ?? Fluoroscopy during procedure. Please see procedure report for ?? additional information. ? Electronically signed by: ??Anuj Hendrickson MD ??06/24/2024 08:10 AM EST ?? RP ? Dictated By: ?Anuj Hendrickson MD ? Signed By: ?<Electronically signed by Anuj Hendrickson MD in OV> ?06/24/24 0810 ? DD/ 1750 ? TD/TT: 06/21/24 1750 ? Skidder Loader: ? Procedure Note Hernandez, Alonzo - 06/24/[address] [address] Fluoroscopy Report Signed Patient: Ronald Nettles#: [id number] : 7Acct:[id number] Age/Sex: 79 / MADM Date: 06/19/24 Loc: HO.S3 363-[address]: Tania Bernabe PLAN MANAGER Ordering Physician: Royce Kothari MD Date of Service: 06/21/24 Procedure(s): FL guidance in OR Accession Number(s): [id number] cc: Sesar Pereyra MD; Royce Kothari MD EXAMINATION: FL GUIDANCE ONLY HISTORY: fracture Left proximal humerus COMPARISON: Comparison is made with the prior examination of the left shoulder dated 06/19/2024. TECHNIQUE: Fluoroscopy time: 0.1 minutes. Cumulative Dose: 1.87 mGy. DAP: 0.0264 mGym2 Images: 3. FINDINGS: Images demonstrate interval relocation of the previously seen anterior dislocation of the humeral head. The previously described glenoid fracture is partially visualized. FL/FL guidance in OR IMPRESSION: Fluoroscopy during procedure. Please see procedure report for additional information. Electronically signed by: Anuj Hendrickson MD 06/24/2024 08:10 AM EST RP Dictated By: Anuj Hendrickson MD Signed By: <Electronically signed by Anuj Hendrickson MD in OV> 06/24/24 0810 DD/ 1750 TD/TT: 06/21/24 1750 Skidder Loader: [facility] External Provider IMG IR PROCEDURES Final Result * CT Humerus (06/19/2024 8:00 PM EST) Anatomical Region Laterality Modality Computed Tomogra phy 06/19/2024 8:00 PM EST Narrative 06/19/2024 8:02 PM EST ? [facility] ?[address] ?[place] [address] ? CT Scan Report ? Signed ? Patient: Tho,Alex ?MR#: [id number] ?? [id number] ? : 1945 ?Acct:[id number] ? Age/Sex: 79 / M ?ADM Date: 02/19/25 ? Loc: HO.ED ? Attending Dr: ? Ordering Physician: Angela Moura MD ?? Date of Service: 06/19/24 ?? Procedure(s): CT humerus LT wo IV con ?? Accession Number(s): [id number] ? cc: Sesar Pereyra MD; Angela Moura MD ? Report Number: ?? [id number]: Total DLP = ??192.00 mGy-cm ? CLINICAL HISTORY: r o dislocation per ortho ? Exam: CT of the left humerus without contrast ? Comparison: None available ? Findings: ?? Anterior dislocation of head of the left humerus with impaction and ?? indentation on the acutely fractured anterior glenoid. Hill-Sachs fracture ?? includes head of the humerus. Comminuted fractures of the scapula also ?? include left corocoid process. With a additional nondisplaced fractures of ?? the lateral scapula. ?? Near anatomic alignment of the acute nondisplaced fracture of the left ?? greater tuberosity. Major fracture fragment of the glenoid is anterior ?? inferiorly displaced measuring 2.4 cm. Additional small loose bodies and ?? fragments noted of the dorsal margin of the glenoid. Npgvczcp-ad-tkxlz ?? 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 ?? 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 ?? Please refer to separate report for x-rays of the partially included elbow. ?? Mild imaged rib deformities in the gwbcx-ex-hejf appear old/chronic. ? Impression: ?? 1. Anterior dislocation of the left glenohumeral joint with impaction ?? fracture of the humerus and fracture of the glenoid. ?? 2. Additional fractures of the left scapula include corocoid process. ? This document has been electronically signed by: Franko Rutherford MD on ?? 06/19/2024 20:00:25 ? Dictated By: ?Franko Rutherford MD ? Signed By: ?<Electronically signed by Franko Rutherford MD in OV> ? 06/19/24 2002 ? DD/ 99 ? TD/TT: 06/19/241999 ? Skidder Loader: ? Procedure Note Alonzo Ng - 06/20/[address] [address] [address] Scan Report Signed Patient: Ronald Nettles#: [id number] : 7Acct:[id number] Age/Sex: 79 / MADM Date: 06/19/24 Loc: HO.ED Attending Dr: Ordering Physician: Angela Moura MD Date of Service: 06/19/24 Procedure(s): CT humerus LT wo IV con Accession Number(s): [id number] cc: Sesar Pereyra MD; Angela Moura MD Report Number: [id number]: Total DLP = 192.00 mGy-cm CLINICAL HISTORY: r o dislocation per ortho Exam: CT of the left humerus without contrast Comparison: None available Findings: Anterior dislocation of head of the left humerus with impaction and indentation on the acutely fractured anterior glenoid. Hill-Sachs fracture includes head of the humerus. Comminuted fractures of the scapula also include left corocoid process. With a additional nondisplaced fractures of the lateral scapula. Near anatomic alignment of the acute nondisplaced fracture of the left greater tuberosity. Major fracture fragment of the glenoid is anterior inferiorly displaced measuring 2.4 cm. Additional small loose bodies and fragments noted of the dorsal margin of the glenoid. Szlvdijz-os-pxyqk effusion with lipohemarthrosis of the left glenohumeral joint. 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 Please refer to separate report for x-rays of the partially includedelbow. Mild imaged rib deformities in the ghxgk-ah-nlwz appear old/chronic. Impression: 1. Anterior dislocation of the left glenohumeral joint with impaction fracture of the humerus and fracture of the glenoid. 2. Additional fractures of the left scapula include corocoid process. This document has been electronically signed by: Franko Rutherford MD on 06/19/2024 20:00:25 Dictated By: Franko Rutherford MD Signed By: <Electronically signed by Franko Rutherford MD in OV> 06/19/242001 DD/ 99 TD/TT: 06/19/241999 Skidder Loader: [facility] External Provider IMG CT PROCEDURES Final Result * (ABNORMAL) Prothrombin Time-INR (06/19/2024 7:57 PM EST) Prothrombin Time 16.0(H) 10.9 - 12.4 SEC [facility] INTERNATIONAL NORM RATIO 1.4(H) 0.9 - 1.1 [facility] Comment:INTERNATIONAL NORMAL IZED RATIO (INR) REFERENCE RANGES Reference RangeFor patients not on anticoagulant therapy: 0.9 - 1.1INR ranges for oral anticoagulanttherapy:For prevention and treatment of venous thrombosis and pulmonary embolism: 2.0 - 3.0For acute myocardial infarction with aspirin therapy: 2.0 - 3.0For acute myocardial infarction without aspirin therapy: 3.0 - 4.0For patients with mechanical prosthetic heart valves: 2.5 - 3.5 06/19/2024 7:57 PM EST 06/19/2024 8:05 PM EST us Generic External Data Provider LAB BLOOD ORDERAB LES Final Result Performing Organization Address City/State/[facility] Co de Phone Number [facility] [address] [place] [phone] * (ABNORMAL) CBC auto differential (06/19/2024 7:57 PM EST) White Blood Count 11.9(H) 4.8 - 10.8 X10*3/uL [facility] Red Blood Count 4.64 4.60 - 5.80 X10*6/uL [facility] Hemoglobin 14.3 14.0 - 18.0 g/dl [facility] Hematocrit 42.9 42.0 - 52.0 % [facility] Mean Corpuscular Volume 92.5 80.0 - 98.0 fL [facility] Mean Corpuscular Hemoglobin 30.8 27.0 - 33.0 pg [facility] Mean Corpuscular HGB Conc 33.3 31.0 - 36.0 g/dl [facility] Red Cell Distribution Width 14.4 11.0 - 16.0 % [facility] Platelet Count 238 160 - 400 X10*3/uL [facility] Mean Platelet Volume 9.9 9.4 - 12.4 fL [facility] Neutrophils Percent Auto 83.9(H) 45 - 73 % [facility] Imm Gran Pct Auto 0.3 0.0 - 0.4 % [facility] Lymphocytes Percent Auto 7.1(L) 20 - 40 % [facility] Monocytes Percent Auto 8.1 2 - 11 % [facility] Eosinophils Percent Auto 0.2 0 - 4 % [facility] Basophils Percent Auto 0.4 0 - 2 % [facility] NRBC Pct Auto 0.0 0.0 - 0.2 /100WBC [facility] Neutrophils Absolute Auto 10.0(H) 2.0 - 8.3 x10*3/uL [facility] Imm Gran Abs Auto 0.04(H) 0.00 - 0.03 X10*3/uL [facility] Lymphocytes Absolute Auto 0.9(L) 1.2 - 4.9 X10*3/uL [facility] Monocytes Absolute Auto 1.0 0.1 - 1.2 X10*3/uL [facility] Eosinophils Absolute Auto 0.0 0.0 - 0.4 X10*3/uL [facility] Basophils Absolute Auto 0.1 0.0 - 0.2 X10*3/uL [facility] NRBC Abs Auto 0.000 0.0 - 0.012 X10*3/uL [facility] 06/19/2024 7:57 PM EST 06/19/2024 8:05 PM EST us Generic External Data Provider LAB BLOOD ORDERAB LES Edited Result - Final Performing Organization Address City/State/[facility] Co de Phone Number [facility] [address] [place] [address] [phone] * XR Elbow 3+ Views Left (06/19/2024 7:16 PM EST) Anatomical Region Laterality Modality Upper Extremities, Elbow Left Radiogr aphic Imaging 06/19/2024 7:16 PM EST Narrative 06/19/2024 7:18 PM EST ? [facility] ?[address] ?[place] [address] ?XRay Report ? Signed ? Patient: Prawlucki,Alex ?MR#: [id number] ?? [id number] ? : 1945 ?Acct:[id number] ? Age/Sex: 79 / M ?ADM Date: 02/19/25 ? Loc: HO.ED ? Attending Dr: ? Ordering Physician: Angela Moura MD ?? Date of Service: 06/19/24 ?? Procedure(s): XR elbow LT min 3V ?? Accession Number(s): [id number] ? cc: Sesar Pereyra MD; Angela Moura MD ? CLINICAL HISTORY: fall, pain ? 3 view left elbow ? Comparison: None ? Findings: ?? Linear calcification is likely due to calcific tendinitis of the triceps ?? at dorsal olecranon. Small avulsion fragment is considered less likely. ?? Otherwise, no displaced fracture. No dislocation. Mild-moderate ?? osteoarthritis of the imaged elbow. Suboptimal lateral positioning without ?? definite large effusion. ?? Calcification medial to proximal ulna is likely due to phlebolith on the ?? oblique image. ? IMPRESSION: ?? 1. Likely calcific tendinitis of the triceps insertion on the olecranon. ? 2. Mild-moderate degenerative changes. ? This document has been electronically signed by: Franko Rutherford MD on ?? 06/19/2024 19:16:55 ? Dictated By: ?Franko Rutherford MD ? Signed By: ?<Electronically signed by Franko Rutherford MD in OV> ? 06/19/241916 ? DD/ 15 ? TD/TT: 06/19/241915 ? Skidder Loader: ? Procedure Note Doncathieter, Image - 06/19/[address] [address] XRay Report Signed Patient: Ronald Nettles#: [id number] : 1945cct:[id number] Age/Sex: 79 / MADM Date: 06/19/24 Loc: HO.ED Attending Dr: Ordering Physician: Angela Moura MD Date of Service: 06/19/24 Procedure(s): XR elbow LT min 3V Accession Number(s): [id number] cc: Sesar Pereyra MD; Angela Moura MD CLINICAL HISTORY: fall, pain 3 view left elbow Comparison: None Findings: Linear calcification is likely due to calcific tendinitis of the triceps at dorsal olecranon. Small avulsion fragment is considered less likely. Otherwise, no displaced fracture. No dislocation. Mild-moderate osteoarthritis of the imaged elbow. Suboptimal lateral positioning without definite large effusion. Calcification medial to proximal ulna is likely due to phlebolith on the oblique image. IMPRESSION: 1. Likely calcific tendinitis of the triceps insertion on the olecranon. 2. Mild-moderate degenerative changes. This document has been electronically signed by: Franko Rutherford MD on 06/19/2024 19:16:55 Dictated By: Franko Rutherford MD Signed By: <Electronically signed by Franko Rutherford MD in OV> 06/19/241916 DD/ 15 TD/TT: 06/19/241915 Skidder Loader: [facility] External Provider IMG XR PROCEDURES Final Result * CT Head w/o Contrast (06/19/2024 7:12 PM EST) Anatomical Region Laterality Modality Head, Neck Computed Tomogra phy 06/19/2024 7:12 PM EST Narrative 06/19/2024 7:14 PM EST ? [facility] ?[address] ?[place] [address] ? CT Scan Report ? Signed ? Patient: Tho,Alex ?MR#: [id number] ?? [id number] ? : 1945 ?Acct:[id number] ? Age/Sex: 79 / M ?ADM Date: 06/19/24 ? Loc: HO.ED ? Attending Dr: ? Ordering Physician: Lonny Delgado ?? Date of Service: 06/19/24 ?? Procedure(s): CT head/brain wo IV con ?? Accession Number(s): [id number] ? cc: Sesar Pereyra MD; Lonny Delgado ? Report Number: ?? [id number]: Total DLP = ??652.00 mGy-cm ? CLINICAL HISTORY: trauma ? CT head without contrast ? Comparison: Head CT from 03/18/2024 ? Findings: ?? No acute intracranial hemorrhage. No midline shift or hydrocephalus. No ?? significant change in mild generalized volume loss. Bilateral basal ?? ganglia calcifications and vascular calcifications are redemonstrated. ?? Mild white matter lesions are likely related to small-vessel ischemic ?? disease. No significant change in thin bilateral subdural hygromas. Soft ?? tissue swelling , including scalp of the right lateral convexity. No acute ?? skull fracture. ?? Imaged paranasal sinuses and imaged mastoid air cells are well aerated. ? IMPRESSION: ?? No acute intracranial findings by CT. ? This document has been electronically signed by: Franko Rutherford MD on ?? 06/19/2024 19:12:47 ? Dictated By: ?Franko Rutherford MD ? Signed By: ?<Electronically signed by Franko Rutherford MD in OV> ? 06/19/243 ? DD/ 11 ? TD/TT: 06/19/241911 ? Skidder Loader: ? Procedure Note Donotuseinterpreter, Image - 06/19/[address] [place] [address] [address] Scan Report Signed Patient: Ronald Nettles#: [id number] : 1945cct:[id number] Age/Sex: 79 / MADM Date: 06/19/24 Loc: HO.ED Attending Dr: Ordering Physician: Lonny Delgado Date of Service: 06/19/24 Procedure(s): CT head/brain wo IV con Accession Number(s): [id number] cc: Sesar Pereyra MD; Lonny Delgado Report Number: [id number]: Total DLP = 652.00 mGy-cm CLINICAL HISTORY: trauma CT head without contrast Comparison: Head CT from 03/18/2024 Findings: No acute intracranial hemorrhage. No midline shift or hydrocephalus. No significant change in mild generalized volume loss. Bilateral basal ganglia calcifications and vascular calcifications are redemonstrated. Mild white matter lesions are likely related to small-vessel ischemic disease. No significant change in thin bilateral subdural hygromas. Soft tissue swelling , including scalp of the right lateral convexity. No acute skull fracture. Imaged paranasal sinuses and imaged mastoid air cells are well aerated. IMPRESSION: No acute intracranial findings by CT. This document has been electronically signed by: Franko Rutherford MD on 06/19/2024 19:12:47 Dictated By: Franko Rutherford MD Signed By: <Electronically signed by Franko Rutherford MD in OV> 06/19/241912 DD/ 11 TD/TT: 06/19/241911 Skidder Loader: [facility] External Provider IMG CT PROCEDURES Final Result * Lipase (06/19/2024 6:17 PM EST) Lipase 17 8 - 78 U/L [facility] 06/19/2024 6:17 PM EST 06/19/2024 6:19 PM EST Generic External Data Provider LAB BLOOD ORDERAB LES Final Result Performing Organization Address City/State/[facility] Co de Phone Number [facility] [address] [place] [phone] * (ABNORMAL) Comprehensive Metabolic Panel (06/19/2024 6:17 PM EST) Sodium 142 135 - 145 mmol/L [facility] Potassium 3.8 3.3 - 5.1 mmol/L [facility] Comment:Slight Hemolysis.Int erpret result with caution. Chloride 109(H) 96 - 108 mmol/L [facility] Carbon Dioxide 23 22 - 29 mmol/L [facility] Anion Gap 14 12 - 20 [facility] Urea Nitrogen (BUN) 13 9 - 16 mg/dL [facility] Creatinine, Serum 1.11 0.5 - 1.4 mg/dL [facility] Creatinine Clr Calc Pharmacy 72.1 [facility] Comment:eGFR (calculated fro m the MDRD study equation) and eCrCl(calculated from the Cockcroft-Gault equation) are based ondifferent parameters and may not yield comparable results.If eCrCl result is absurd, please check patient'sheight/weight. Estimated Glomerular Filt Rate >60 [facility] Comment:Chronic Kidney Disea se: Estimated GFR < 60 mL/min/1.36y4Wnljuv Kidney Disease: Estimated GFR < 15 mL/min/1.73m2 Glucose 92 60 - 115 mg/dL [facility] Calcium 9.1 8.4 - 10.2 mg/dL [facility] Bilirubin, Total 0.5 0.0 - 1.0 mg/dL [facility] Aspartate Amino Transferase 27 5 - 37 U/L [facility] Comment:Slight Hemolysis.Int erpret result with caution. Alanine Aminotransferase 14 0 - 40 U/L [facility] Total Protein 7.7 6.5 - 8.0 g/dL [facility] Albumin Level 4.1 3.5 - 5.0 g/dL [facility] Alkaline Phosphatase 119(H) 39 - 117 U/L [facility] 06/19/2024 6:17 PM EST 06/19/2024 6:19 PM EST us Generic External Data Provider LAB BLOOD ORDERAB LES Final Result [facility] [address] [place] [phone] [phone] documented in this encounter Visit Diagnoses Not on filedocumented in this encounter Additional Health Concerns Assessment Noted Time PHQ-9 Depression Total Score: 16 07/18/2 024 10:59 AM EDT documented as of this encounter Care Teams Film Recordist Relationship Specialty Start Date End Date Sesar Pereyra MD [address] [place] [phone] PCP - General Internal Medicine 03/01/21 [facility] 03/22/24 documented as of this encounter
--- OUTSIDE RECORDS SUMMARY | 2024-07-05 11:06 | XMS_ITS | Clinical Summary ---
Author Organization [facility] Address [address] [place] [address] Care Team Providers Care Chronic Care Nurse Name Role Phone Nuha Galvin PA-C Primary Care Provider [phone] Source Comments PLEASE NOTE, if this patient [...] Date Sleep disorder 02/02/2015 Overview (02/02/2015): Saw [facility] and sleep on 01/15/2015: Dr. Johnson [...] once a year. In remission Seen at [facility] urology Depression with anxiety 04/01/2014 Overview (04/01/2014): Dr. Pradhan at [facility] Is going to establish care at a new facility. PVD (peripheral vascular dis ease) with claudication ([facility]) 04/01/2014 Overview (07/04/2014): Fem-Fem done by Dr. Hensley in 2006. Sees this doctor once a year at [facility]. Follows up with this facility every 6 months. 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. 4.[address] Herbert [...] [employer] - [place] Care Teams Chronic Care Nurse Relationship Specialty Start Date End Date Nuha Galvin PA-C [address] [place] [address] PCP - General 03/21/18
--- OUTSIDE RECORDS SUMMARY | 2024-07-05 11:06 | XMS_ITS | Encounter Summary ---
Author Organization [facility] Address [address] [place] [address] Care Team Providers Care Websphere Consultant Name Role Phone Ayo Carpio MD Primary Care Provider [phone] Annalee Jones MD Primary Care Provider Un available Yolande Nicholas DO Primary Care Pro vider Unavailable Anuj Priest DO Primary Care Provider Judy [place] [facility], Pcp Primary Care Provider Unavailabl e Encounter Details Date Type Department Care Team Description 08/05/2016 Release of Information Medical Records [address] [place] [id number] Abstract, Provider Social History Tobacco Use Types [...] on filedocumented in this encounter Care Teams Websphere Consultant Relationship Specialty Start Date End Date Ayo Carpio MD [address] [place] [address] [phone] PCP - General Internal Medicine 07/19/16 01/05/17 Annalee Jones MD [address] [place] [address] PCP - General Internal Medicine 01/06/17 12/02/18 Yolande Nicholas, [address] [place] [address] PCP - General Internal Medicine 12/03/18 10/08/20 Anuj Priest DO [address] [place] [address] PCP - General Internal Medicine 10/09/20 06/16/21 [facility], Pcp [address] [place] [phone] PCP - General Internal Medicine 06/17/21 documented as of this encounter
--- OUTSIDE RECORDS SUMMARY | 2024-07-05 11:06 | XMS_ITS | Encounter Summary ---
Author Organization [facility] Address [address] [place] [address] Care Team Providers Care Home Energy Inspector Name Role Phone Annalee Jones MD Primary Care Provider Un available Yolande Nicholas DO Primary Care Pro vider Unavailable Anuj Priest DO Primary Care Provider Judy vailable [facility], Pcp Primary Care Provider Unavailabl e Encounter Details Date Type Department Care Team Description 09/04/2018 Release of Information Medical Records [address] [place] [id number] Abstract, Provider Social History Tobacco Use Types [...] filedocumented in this encounter Care Teams Home Energy Inspector Relationship Specialty Start Date End Date Annalee Jones MD PCP - General Internal Medicine 01/06/17 9 Yolande Nicholas DO PCP - General Internal Medicine 12/03/18 10/08/20 Anuj Priest DO PCP - General Internal Medicine 10/09/20 2 Jj, Pcp PCP - General Internal Medicine 06/17/21 documented as of this encounter
--- OUTSIDE RECORDS SUMMARY | 2024-07-05 11:06 | XMS_ITS | Encounter Summary ---
Author Organization [facility] Address [address] [place] [address] Care Team Providers Care Profile Trimmer Name Role Phone Annalee Jones MD Primary Care Provider Un available Yolande Nicholas DO Primary Care Pro vider Unavailable Anuj Priest DO Primary Care Provider Judy [facility], Pcp Primary Care Provider Unavailabl e Reason for Visit * Reason Onset Date Comments Prior Authorization 06/27/2018 sildenafil ( REVATIO) 20 MG tablet Encounter Details Date Type Department Care Team Description 06/27/2018 Telephone Adult [address] [address] Annalee Jones MD Prior Authorization (sildenafil (REVATIO) [...] thank you [place] p [phone] Prior Auth [facility] Prior Authorizations Ext [phone] Fax: [phone] [place] p [phone] Prior Auth pool * Telephone Encounter - Valerie Hagen - 07/05/2018 2:02 PM EST Dora from [employer] calling the medication is not approved by the FDA for this pt's diagnosis please return call [phone] * Telephone Encounter - Annalee Jones MD - 07/05/2018 11:22 AM EST Please obtain urology consultation report * Telephone Encounter - Maggi Sol M.A. - 07/05/2018 11:09 AM EST Ed meds are not covered by medicare, per pharmacy pt has been using discount card [place] back [place] p [phone] Prior Auth [facility] Prior Authorizations Ext 510 Fax: [phone] reply back to p [phone] Prior Auth pool * Telephone Encounter - [...] What Pharmacy did the fax come from: [facility] fax #: [phone] [employer] Information from fax: What Prescription Plan does the patient have? BIN/PCN if applicable: N/A Cardholder ID:[id number] Person Code: N/A Relationship Code: N/A Help desk phone: [phone] documented in this encounter Plan of Treatment Not on file documented as of this encounter Visit Diagnoses Not on filedocumented in this encounter Care Teams Profile Trimmer Relationship Specialty Start Date End Date Annalee Jones MD PCP - General Internal Medicine 01/06/17 9 Yolande Nicholas DO PCP - General Internal Medicine 12/03/18 10/08/20 Anuj Priest DO PCP - General Internal Medicine 10/09/20 2 [facility], Pcp PCP - General Internal Medicine 06/17/21 documented as of this encounter
--- OUTSIDE RECORDS SUMMARY | 2024-07-05 11:06 | XMS_ITS ---
Author Organization [facility] on Care Team Providers Care Slide Developer Name Role Phone Vaishali Aguilar Unavailable Unavailable Noelle Edwards Unavailable Unavailable Valerie Wayne Unavailable Unavailable Allergies and adverse reactions No Known Allergies Care Team Name Role Address Phone Organization Dates Noelle Edwards PCP [address] [place] [address], [place], [address], [place] (Office[place] : [facility] 2020 - 02/20/2020 Vaishali Aguilar Attending Physician [address] [place] [address], [address], [place] (Office): : [facility] 2020 - 02/20/2020 Valerie Wayne Attending Physician [address] [place] [address] [place] [address], [address], [place] (Office): [facility] 2020 - 02/20/2020 Immunizations Immunization Status Vaccine Details Vaccine Code CodeSystem Date Notes Influenza completed Influenza, split virus, trivalent, injectable, contains preservative lotNumber: [id number] expiry: 10/28/2020 Mfg: Flucelavax Quadrivalent Given 0.5 ml Left Deltoid intramuscularly 141 CVX created date: 02/18/2020 consent date: 02/18/2020 administer ed date: 02/18/2020 Educated by Saray Saavedra on 02/18/2020 TB 2 Step Mantoux Skin Test completed tuberculin skin test; unspecified formulation lotNumber: [id number] expiry: 11/25/2021 Mfg: sanofi Pasteur limited Given 0.1 ml Left Forearm intradermally Step 1 of Multi-step 98 CVX created date: 02/13/2020 consent date: 02/13/2020 administer ed date: 02/13/2020 Mental Status Section Date Assessment Total Score Description 02/20/2020 BIMS 14 cognitively int act CAM 0 No delirium ind icated PHQ-9 07 mild depression 02/18/2020 BIMS 11 moderate cognit jason impairment CAM 0 No delirium ind icated PHQ-9 07 mild depression Problems Problem # Description Date of onset Resolved Date Code CodeSystem Concern Status 1 ANEMIA, UNSPECIFIED [address] active 2 BREAKDOWN (MECHANICAL) OF OTHER VASCULAR GRAFTS, INITIAL ENCOUNTER [address] active 3 CHRONIC KIDNEY DISEASE, STAGE 2 (MILD) [address] active 4 CHRONIC OBSTRUCTIVE PULMONARY DISEASE, UNSPECIFIED [address] active 5 COVID-[address] active 6 ENCOUNTER FOR SURGICAL AFTERCARE FOLLOWING SURGERY ON THE CIRCULATORY SYSTEM [address] active 7 ESSENTIAL (PRIMARY) HYPERTENSION [address] active 8 GENERALIZED ANXIETY DISORDER [address] active 9 MAJOR DEPRESSIVE DISORDER, RECURRENT, UNSPECIFIED [address] active 10 PAROXYSMAL ATRIAL FIBRILLATION [address] active 11 PERIPHERAL VASCULAR DISEASE, UNSPECIFIED [address] active Reason for Referral No Reasons for Referral Entered Social History Social History Observation Description Start Date End Date Code Code System Current Smoking Status Tobacco smoking consumption unknown 779095628 SNOMED CT Sex Assigned At Male 1945 82273-7 [facility] Vital Signs Code Code System Vitals Name Values and Units Timing Information 31189-8 [facility] Pain Level Value=1.0 02/20/2020 9279-1 [facility] Respiratory Rate Value=18.0 Units=/m in 02/20/2020 8462-4 [facility] Blood Pressure-Diastolic Value=60 Un its=mmHg 02/20/2020 8480-6 [facility] Blood Pressure-Systolic Jacjj=178 Un its=mmHg 02/20/2020 8310-5 [facility] Body Temperature Value=97.6 Units=?? F 02/20/2020 8867-4 [facility] Heart rate Value=73.0 Units=/min 95329-7 [facility] O2 % BldC Oximetry Value=96.0 Units= % 02/20/2020 90197-3 [facility] Weight Kyuza=143.0 Units=Lbs 8302-2 [facility] Height Value=72.0 Units=Inches 02/12/2020
--- OUTSIDE RECORDS SUMMARY | 2024-07-05 11:06 | XMS_ITS | Encounter Summary ---
Author Organization [facility] Address [address] [place] [address] Care Team Providers Care Guest Relations Executive Name Role Phone Annalee Jones MD Primary Care Provider Un available Yolande Nicholas DO Primary Care Pro vider Unavailable Anuj Priest DO Primary Care Provider Judy vailable [facility], Pcp Primary Care Provider Unavailabl e Encounter Details Date Type Department Care Team Description 04/27/2018 Hospital Medical Records [address] [place] [id number] [place] [address] Social History Tobacco Use Types Packs/Day Years [...] on filedocumented in this encounter Care Teams Guest Relations Executive Relationship Specialty Start Date End Date Annalee Jones MD PCP - General Internal Medicine 01/06/17 9 Yolande Nicholas DO PCP - General Internal Medicine 12/03/18 10/08/20 Anuj Priest DO PCP - General Internal Medicine 10/09/20 2 [facility], Pcp PCP - General Internal Medicine 06/17/21 documented as of this encounter
--- OUTSIDE RECORDS SUMMARY | 2024-07-05 11:06 | XMS_ITS | Encounter Summary ---
Author Organization [employer] Address [address] [facility] 7t [place] [address] Care Team Providers Care Barber Apprentice Name Role Phone Sesar Pereyra MD Primary Care Provider [phone]- [phone] Reason for Visit * Reason Onset Date Comments Med Refill 07/04/2024 Encounter Details Date Type Department Care Team (Late st Contact Info) Description 07/04/[address] [facility] MEDICINE [address] [place] [address] Sesar Pereyra MD [address] [place] [address] Social History Tobacco Use Types Packs/Day Years [...] encounter Miscellaneous Notes * Telephone Encounter - Carl Hari - 07/04/2024 3:39 PM EST TC from pt requesting medication refill. Medications needing refill : amphetamine-dextroamphetamine (Adderall) 7.5 MG tablet To be sent to: [facility] - [place], [place] - [address] [facility] [address] documented in this encounter Plan of Treatment Upcoming Encounters Date Type Department Care Team (Late st Contact Info) Description 09/11/2024 10:30 AM EDT Office Visit [facility] MED & PEDS [address] [place] [address] Sesar Pereyra MD [address] [place] [address] documented as of this encounter Visit Diagnoses Not on filedocumented in this encounter Additional Health Concerns Assessment Noted Time PHQ-9 Depression Total Score: 16 024 10:59 AM EDT documented as of this encounter Care Teams Barber Apprentice Relationship Specialty Start Date End Date Sesar Pereyra MD [address] [place] [address] PCP - General Internal Medicine 03/01/21 [facility] 03/22/24 documented as of this encounter
--- OUTSIDE RECORDS SUMMARY | 2024-07-05 11:06 | XMS_ITS | Encounter Summary ---
Author Organization [facility] Address [address] [place] [address] Care Team Providers Care Fiber Designer Name Role Phone Annalee Jones MD Primary Care Provider Un available Yolande Nicholas DO Primary Care Pro vider Unavailable Anuj Priest DO Primary Care Provider Judy [facility], Pcp Primary Care Provider Unavailabl e Encounter Details Date Type Department Care Team Description 06/13/2018 Refill Adult Medicine [address] [address] Annalee Jones MD Social History Tobacco Use [...] MG tablet [Annalee Jones MD] Preferred pharmacy: [facility] [address] Comment: you have nothing [...] on filedocumented in this encounter Care Teams Fiber Designer Relationship Specialty Start Date End Date Annalee Jones MD PCP - General Internal Medicine 01/06/17 9 Yolande Nicholas DO PCP - General Internal Medicine 12/03/18 10/08/20 Anuj Priest DO PCP - General Internal Medicine 10/09/20 2 [facility], Pcp PCP - General Internal Medicine 06/17/21 documented as of this encounter
--- OUTSIDE RECORDS SUMMARY | 2024-07-05 11:06 | XMS_ITS | Encounter Summary ---
Author Organization [facility] Address [address] [facility] 7t [place] [address] Care Team Providers Care Adult Parole Officer Name Role Phone Sesar Pereyra MD Primary Care Provider [phone] Reason for Visit * Reason Onset Date Comments Med Refill 04/11/2024 Encounter Details Date Type Department Care Team (Late st Contact Info) Description 04/11/2024 Refill [facility] MEDICINE [address] [place] [address] Natasha Jiang MD [address] [place] [address] Closed nondisplaced fracture of acromial end of [...] Upcoming Encounters Date Type Department Care Team ([facility] st Contact Info) Description 09/11/2024 10:30 AM EDT Office Visit [facility] [address] [place] [address] Sesar Pereyra MD [address] [place] [address] documented as of this encounter Visit Diagnoses Diagnosis Closed nondisplaced fracture of acromial end of right clavicle, initial encounter documented in this encounter Additional Health Concerns Assessment Noted Time PHQ-9 Depression Total Score: 16 024 10:59 AM EDT documented as of this encounter Care Teams Adult Parole Officer Relationship Specialty Start Date End Date Sesar Pereyra MD [address] [place] [address] PCP - General Internal Medicine 03/01/21 [facility] 03/22/24 documented as of this encounter
--- OUTSIDE RECORDS SUMMARY | 2024-07-05 11:06 | XMS_ITS | Encounter Summary ---
Author Organization [facility] Address [address] [place] [address] Care Team Providers Care Equipment Specialist Name Role Phone Coleman Mccarthy MD Primary Care Provider Unavaila ble Ayo Carpio MD Primary Care Provider [phone] Annalee Jones MD Primary Care Provider Un available Yolande Nicholas DO Primary Care Pro vider Unavailable Anuj Priest DO Primary Care Provider [facility], Pcp Primary Care Provider Unavailabl e Encounter Details Date Type Department Care Team Description 09/16/2015 GERIATRICS PHYSICIAN/[facility] Report Medical Records [address] [place] [address] Abstract, Provider Social History Tobacco Use Types [...] on filedocumented in this encounter Care Teams Equipment Specialist Relationship Specialty Start Date End Date Coleman Mccarthy MD PCP - General Internal Medicine 05/07/14 07/18/16 Ayo Carpio MD [address] [place] [address] [id number] PCP - General Internal Medicine 07/19/16 01/05/17 Annalee Jones MD [address] [place] [address] PCP - General Internal Medicine 01/06/17 12/02/18 Yolande Nicholas, [address] [place] [address] PCP - General Internal Medicine 12/03/18 10/08/20 Anuj Priest DO [address] [place] [address] PCP - General Internal Medicine 10/09/20 06/16/21 [facility], Pcp [address] [place] [address] PCP - General Internal Medicine 06/17/21 documented as of this encounter
--- OUTSIDE RECORDS SUMMARY | 2024-07-05 11:06 | XMS_ITS | Encounter Summary ---
Author Organization [facility] [employer] [facility] Address [address] [place] [address] Care Team Providers Care Supervisor Cigar Processing Name Role Phone Ayo Carpio MD Primary Care Provider [phone] Annalee Jones MD Primary Care Provider Un available Yolande Nicholas DO Primary Care Pro vider Unavailable Anuj Preist DO Primary Care Provider Judy [facility], Pcp Primary Care Provider Unavailabl e Encounter Details Date Type Department Care Team Description 12/13/2016 Machine Presser Report Medical Records [address] [place] [address] Dhruv Garcia MD Social History Tobacco Use [...] filedocumented in this encounter Care Teams Supervisor Cigar Processing Relationship Specialty Start Date End Date Ayo Carpio MD [address] [place] [address] PCP - General Internal Medicine 07/19/16 01/05/17 Annalee Jones MD [address] [place] [address] PCP - General Internal Medicine 01/06/17 12/02/18 Yolande Nicholas, DO [address] [place] [address] PCP - General Internal Medicine 12/03/18 10/08/20 Anuj Priest, [address] [place] [address] PCP - General Internal Medicine 10/09/20 06/16/21 [facility], [address] [address] PCP - General Internal Medicine 06/17/21 documented as of this encounter
--- OUTSIDE RECORDS SUMMARY | 2024-07-05 11:06 | XMS_ITS | Encounter Summary ---
Author Organization [employer] Address [address] [facility] 7t [place] [address] Care Team Providers Care Tool Machine Shop Supervisor Name Role Phone Sesar Pereyra MD Primary Care Provider [phone] Encounter Details Date Type Department Care Team (Late st Contact Info) Description 04/02/2024 Orders Only [employer] [facility] Information Management [address] [place] [address] Provider, MD Jazmyn Social History Tobacco Use [...] Description 09/11/2024 10:30 AM EDT Office Visit [facility] [address] [place] [address] Sesar Pereyra MD [address] [place] [address] documented as of this encounter Procedures Procedure [...] documented as of this encounter Care Teams Tool Machine Shop Supervisor Relationship Specialty Start Date End Date Sesar Pereyra MD [address] [place] [address] PCP - General Internal Medicine 03/01/21 [facility] documented as of this encounter
--- OUTSIDE RECORDS SUMMARY | 2024-07-05 11:06 | XMS_ITS | Encounter Summary ---
Author Organization [email or web address] Address [address] [place] [address] Care Team Providers Care Detacher Name Role Phone Coleman Mccarthy MD Primary Care Provider Unavaila ble Ayo Carpio MD Primary Care Provider Annalee Jones MD Primary Care Provider Un available Yolande Nicholas DO Primary Care Pro vider Unavailable Anuj Priest DO Primary Care Provider [facility], Pcp Primary Care Provider Unavailabl e Encounter Details Date Type Department Care Team Description 07/30/2014 PRINCIPLE SOFTWARE ENGINEER/[facility] Report Medical Records [address] [place] [address] Abstract, Provider Social History Tobacco Use Types [...] on filedocumented in this encounter Care Teams Detacher Relationship Specialty Start Date End Date Coleman Mccarthy MD PCP - General Internal Medicine 05/07/14 07/18/16 Ayo Carpio MD [address] [place] [address] [id number] PCP - General Internal Medicine 07/19/16 01/05/17 Annalee Jones MD [address] [place] [address] PCP - General Internal Medicine 01/06/17 12/02/18 Yolande Nicholas, [address] [place] [address] PCP - General Internal Medicine 12/03/18 10/08/20 Anuj Priest DO [address] [place] [address] PCP - General Internal Medicine 10/09/20 06/16/21 [facility], Pcp [address] [place] [address] PCP - General Internal Medicine 06/17/21 documented as of this encounter
--- OUTSIDE RECORDS SUMMARY | 2024-07-05 11:06 | XMS_ITS | Encounter Summary ---
Author Organization [facility] Address [address] [place] [address] Care Team Providers Care 2Nd Grade Teacher Name Role Phone Ghassan Burciaga MD Primary Care Provider Unavail able Pierre Arevalo MD Primary Care Provider Judy vailable Gerson Dawson MD Primary Care Provider Unavail able [facility], Pcp Primary Care Provider Unavailabl e Coleman Mccarthy MD Primary Care Provider Unavaila Ayo Demarco MD Primary Care Provider [phone] Annalee Jones MD Primary Care Provider Un available Pascual Nicholasabela DO Primary Care Pro vider Unavailable Anuj Priest DO Primary Care Provider Judy vailable [facility], Pcp Primary Care Provider Unavailabl e Encounter Details Date Type Department Care Team Description 01/30/2009 Hospital Medical Records [address] [place] [address] Fernie Higginbotham MD Social History Tobacco Use [...] on filedocumented in this encounter Care Teams 2Nd Grade Teacher Relationship Specialty Start Date End Date Ghassan Burciaga MD PCP - General 07/24/00 05/06/13 Pierre Arevalo MD PCP - General Internal Medicine 05/07/13 4 Gerson Dawson MD PCP - General Internal Medicine 01/30/14 03/20/14 [facility], Pcp PCP - General Internal Medicine 03/21/14 05/06/14 Coleman Mccarthy MD PCP - General Internal Medicine 05/07/14 07/18/16 Ayo Carpio MD [address] [place], [place] [phone] PCP - General Internal Medicine 07/19/16 01/05/17 Annalee Jones MD [address] [place], [place] [phone] PCP - General Internal Medicine 01/06/17 12/02/18 Yolande Nicholas DO [address] [place] [address] PCP - General Internal Medicine 12/03/18 10/08/20 Anuj Priest DO [address] [place] [address] PCP - General Internal Medicine 10/09/20 06/16/21 [facility], Pcp PCP - General Internal Medicine 06/17/21 documented as of this encounter
--- OUTSIDE RECORDS SUMMARY | 2024-07-05 11:06 | XMS_ITS | Encounter Summary ---
Author Organization [facility] Address [address] [place] [address] Care Team Providers Care Flumer Name Role Phone Yolande Nicholas DO Primary Care Pro vider Unavailable Anuj Priest DO Primary Care Provider [facility], Pcp Primary Care Provider Unavailabl e Reason for Visit * Reason Onset Date Comments Faxed Order 03/08/2020 Encounter Details Date Type Department Care Team Description 03/08/2020 Telephone Adult Medicine [address] [address] Yolande Nicholas DO Faxed Order Social History [...] 10:19 AM EST Faxed order received from [facility]. Please review, sign, date, and fax back to [phone] * Telephone Encounter - Gerri Parra - 03/08/2020 2:16 PM EST [facility] IS FAXING ORDERS TO BE SIGN AND FAX BACK TO [phone]. documented in this encounter Plan of Treatment Not on file documented as of this encounter Visit Diagnoses Not on filedocumented in this encounter Care Teams Flumer Relationship Specialty Start Date End Date Yolande Nicholas DO PCP - General Internal Medicine 12/03/18 10/08/20 Anuj Priest DO PCP - General Internal Medicine 10/09/[address] [place] [address], Pcp PCP - General Internal Medicine 06/17/21 documented as of this encounter
--- OUTSIDE RECORDS SUMMARY | 2024-07-05 11:06 | XMS_ITS | Encounter Summary ---
Author Organization [facility] Address [address] [place] [address] Care Team Providers Care Spring Repairer Helper Hand Name Role Phone Yolande Nicholas DO Primary Care Pro vider Unavailable Anuj Priest DO Primary Care Provider [facility], Pcp Primary Care Provider Unavailabl e Reason for Visit * Reason Onset Date Comments [facility] Call 03/03/2020 [facility] Encounter Details Date Type Department Care Team Description 03/03/2020 Telephone Adult Medicine [facility] [address] [place] [address] Yolande Nicholas DO VNA Call ([facility]) Social History Tobacco Use Types Packs/Day [...] on filedocumented in this encounter Care Teams Spring Repairer Helper Hand Relationship Specialty Start Date End Date Yolande Nicholas DO PCP - General Internal Medicine 12/03/18 10/08/20 Anuj Priest DO PCP - General Internal Medicine 10/09/[address] [place] [address], Pcp PCP - General Internal Medicine 06/17/21 documented as of this encounter
--- OUTSIDE RECORDS SUMMARY | 2024-07-05 11:06 | XMS_ITS | Encounter Summary ---
Author Organization [employer] Address [address] [facility] 7t [place] [address] Care Team Providers Care Java Programmer Analyst Name Role Phone Sesar Pereyra MD Primary Care Provider [phone] Encounter Details Date Type Department Care Team ([facility] st Contact Info) Description 04/01/2024 Orders Only [facility] [address] [place], [place] [phone] Sesar Pereyra MD [address] [place] [address] Essential hypertension (Primary Dx) Social History Tobacco [...] Description 09/11/2024 10:30 AM EDT Office Visit [facility] PEDS [address] [place] [address] Sesar Pereyra MD [address] [place] [address] documented as of this encounter Visit Diagnoses Diagnosis Essential hypertension- Primary Unspecified essential hypertension documented in this encounter Additional Health Concerns Assessment Noted Time PHQ-9 Depression Total Score: 16 024 10:59 AM EDT documented as of this encounter Care Teams Java Programmer Analyst Relationship Specialty Start Date End Date Sesar Pereyra MD [address] [place] [address] PCP - General Internal Medicine 03/01/21 [facility]/22[facility]24 documented as of this encounter
--- OUTSIDE RECORDS SUMMARY | 2024-07-05 11:06 | XMS_ITS | Encounter Summary ---
Author Organization [facility] Address [address] [place] [address] Care Team Providers Care Auger Supervisor Name Role Phone Yolande Nicholas DO Primary Care Pro vider Unavailable Anuj Priest DO Primary Care Provider Judy álvarez [facility], Pcp Primary Care Provider Unavailabl e Encounter Details Date Type Department Care Team Description 09/07/2020 [place] Strip Gauger Report Medical Records [address] [place] [address] Dhruv Garcia MD Social History Tobacco Use [...] on filedocumented in this encounter Care Teams Auger Supervisor Relationship Specialty Start Date End Date Yolande Nicholas DO PCP - General Internal Medicine 12/03/18 10/08/20 Anuj Priest DO PCP - General Internal Medicine 10/09/20 Molly Gardner, Pcp PCP - General Internal Medicine 06/17/21 documented as of this encounter
--- OUTSIDE RECORDS SUMMARY | 2024-07-05 11:06 | XMS_ITS | Encounter Summary ---
Author Organization [facility] Address [address] [place] [address] Care Team Providers Care Disposition Clerk Name Role Phone Yolande Nicholas DO Primary Care Pro vider Unavailable Anuj Priest DO Primary Care Provider [facility], Pcp Primary Care Provider Unavailabl e Reason for Visit * Reason Onset Date Comments Faxed Refill 08/13/2020 Melatonin 3 MG T ab Encounter Details Date Type Department Care Team Description 08/13/2020 Telephone Adult [address] [address] Yolande Nicholas DO Faxed Refill (Melatonin 3 [...] last prescribed in 2016. Called pt at [phone], phone continuously busy. * Telephone Encounter - [...] MED LIST AND IS IDENTIFIED BELOW): {MED LIST:77189) Med name: Melatonin 3 MG Tab Dosage: 3 mg tab # of tablets: Local pharmacy with request for 30 -day supply Instructions: Take one tablet by mouth daily at bedtime for sleep Did you check the pharmacy information above?: YES Patients current insurance carrier: Payor: [facility] / Plan: MEDICARE FFS $0 KARI MESA [id number] / Product Type: MEDICARE [id number] documented in this encounter Plan of Treatment Not on file documented as of this encounter Visit Diagnoses Not on filedocumented in this encounter Care Teams Disposition Clerk Relationship Specialty Start Date End Date Yolande Nicholas DO PCP - General Internal Medicine 12/03/18 10/08/20 Anuj Priest DO PCP - General Internal Medicine 10/09/20 2 [facility], Pcp PCP - General Internal Medicine 06/17/21 documented as of this encounter
--- OUTSIDE RECORDS SUMMARY | 2024-07-05 11:06 | XMS_ITS | Encounter Summary ---
Author Organization [employer] [facility] Address [address] [place] [address] Care Team Providers Care Spa Associate Name Role Phone Coleman Mccarthy MD Primary Care Provider Unavaila ble Ayo Carpio MD Primary Care Provider [phone] Annalee Jones MD Primary Care Provider Un available Yolande Nicholas DO Primary Care Pro vider Unavailable Anuj Priest DO Primary Care Provider [facility], Pcp Primary Care Provider Unavailabl e Encounter Details Date Type Department Care Team Description 05/19/2015 Assistant Signal Maintainer Report Medical Records [address] [place] [id number] Anuj [place] Social History Tobacco Use Types [...] on filedocumented in this encounter Care Teams Spa Associate Relationship Specialty Start Date End Date Coleman Mccarthy MD PCP - General Internal Medicine 05/07/14 07/18/16 Ayo Carpio MD [address] [place] [address] [phone] PCP - General Internal Medicine 07/19/16 01/05/17 Annalee Jones MD [address] [place] [phone] PCP - General Internal Medicine 01/06/17 12/02/18 Yolande Nicholas, [address] [place] [phone] PCP - General Internal Medicine 12/03/18 10/08/20 Anuj Priest DO [address] [place] [phone] PCP - General Internal Medicine 10/09/20 06/16/21 [facility], Pcp [address] [place] [phone] PCP - General Internal Medicine 06/17/21 documented as of this encounter
--- OUTSIDE RECORDS SUMMARY | 2024-07-05 11:06 | XMS_ITS | Encounter Summary ---
Author Organization [employer] Address [address] [facility] [address] [place] [address] Care Team Providers Care Probation Manager Name Role Phone Sesar Pereyra MD Primary Care Provider [phone] Reason for Visit * Reason Onset Date Comments Referral 01/02/2024 Encounter Details Date Type Department Care Team ([facility] st Contact Info) Description 01/02/2024 Telephone [facility] [address] [place] [address] Sesar Pereyra MD [address] [place] [address] Referral Social History Tobacco Use Types Packs/Day [...] - 01/02/2024 10:48 AM EDT Tc from [place] the patients EC requesting a referral for a gerontologist and would like to be sent to at [facility] [place] documented in this encounter Plan of Treatment Upcoming Encounters Date Type Department Care Team (Late st Contact Info) Description 09/11/2024 10:30 AM EDT Office Visit [facility] [address] [place] [address] Sesar Pereyra MD [address] [place] [address] documented as of this encounter Visit Diagnoses Not on filedocumented in this encounter Additional Health Concerns Assessment Noted Time PHQ-9 Depression Total Score: 16 024 10:59 AM EDT documented as of this encounter Care Teams Probation Manager Relationship Specialty Start Date End Date Sesar Pereyra MD [address] [place], [place] [address], [place] [address] PCP - General Internal Medicine 03/01/21 [facility] 03/22/24 documented as of this encounter
--- OUTSIDE RECORDS SUMMARY | 2024-07-05 11:06 | XMS_ITS | Encounter Summary ---
Author Organization [employer] Address [address] [facility] [address] [place] [address] Care Team Providers Care Pantograph Setter Name Role Phone Sesar Pereyra MD Primary Care Provider [phone] Reason for Visit * Reason Comments Med Refill Encounter Details Date Type Department Care Team ([facility] st Contact Info) Description 08/29/2023 Refill [facility] [address] [place] [address] Sesar Pereyra MD [address] [place] [address] Social History Tobacco Use Types Packs/Day Years [...] 10:30 AM EDT Office Visit [facility] [address] [place] [address] Sesar Pereyra MD [address] [place] [address] documented as of this encounter Visit Diagnoses Not on filedocumented in this encounter Additional Health Concerns Assessment Noted Time PHQ-9 Depression Total Score: 16 024 10:59 AM EDT documented as of this encounter Care Teams Pantograph Setter Relationship Specialty Start Date End Date Sesar Pereyra MD [address] [place] [address] PCP - General Internal Medicine 03/01/21 [facility] 03/22/24 documented as of this encounter
--- OUTSIDE RECORDS SUMMARY | 2024-07-05 11:06 | XMS_ITS | Clinical Summary ---
Author Organization [employer] Address [address] [facility] [address] [place] [address] Care Team Providers Care Culinary Manager Name Role Phone Sesar Pereyra MD Primary Care Provider Allergies No known active allergies Medications clonazePAM (KlonoPIN) 0.5 MG tablet 3 Active gabapentin (Neurontin) 100 MG capsule 3 Active QUEtiapine (SEROquel) 25 MG tablet 4 Active sertraline (Zoloft) 50 MG tablet 4 Active tamsulosin (Flomax) 0.4 MG 24 hr capsule 4 Active melatonin 3 MG tabletIndications :Primary insomnia Take 1 tablet (3 mg) by mouth at bedtime. 28 tablet 5 4 Active docusate sodium (Colace) 100 MG capsule TAKE 1 CAPSULE BY MOUTH TWICE A DAY (BUBBLE-MATHEUS) 56 capsule 5 4 Active dronedarone (Multaq) 400 MG tablet Take 1 tablet by mouth with breakfast and with evening meal. Active metoprolol tartrate (Lopressor) 25 MG tabletIndications :Essential hypertension Take 0.5 tablets (12.5 mg) by mouth 2 times daily. 30 tablet 11 4 04/14/20 25 Active Eliquis 5 MG tabletIndications :Longstanding persistent atrial fibrillation (CMS/HCC) TAKE ONE TABLET BY MOUTH EVERY 12 HOURS 60 tablet 5 4 Active cilostazol (Pletal) 50 MG tabletIndications :PVD (peripheral vascular disease) (CMS/HCC) TAKE ONE TABLET BY MOUTH TWICE A DAY 60 tablet 5 4 Active tamsulosin (Flomax) 0.4 MG 24 hr capsule Take 1 capsule (0.4 mg) by mouth Once per day. 30 capsule 2 5 Active aspirin (Aspirin Low Dose) 81 MG EC tabletIndications :Primary hypertension Take 1 tablet (81 mg) by mouth Once per day. 30 tablet 5 5 Active atorvastatin (Lipitor) 80 MG tabletIndications :Hypercholesterol emia Take 1 tablet (80 mg) by mouth Once per day. 28 tablet 11 5 Active amphetamine-dextr oamphetamine (Adderall) 7.5 MG tablet Take 1 tablet (7.5 mg) by mouth Once per day. 28 tablet 5 Active dronedarone (Multaq) 400 MG tabletIndications :Paroxysmal atrial fibrillation (CMS/HCC) Take 1 tablet (400 mg) by mouth with breakfast and with evening meal. 60 tablet 5 Active Active Problems Problem Noted Date Diagnosed [...] screening colonoscopy 01/22/2024 Preoperative cardiovascular examination 01/22/20 24 Enlarged prostate 01/22/2024 HCAP (healthcare-associated pneumonia) 4 Heme positive stool 01/22/2024 History of colostomy [...] 08/27/2018 DDD (degenerative disc disease), lumbar 08/28/19 Centrilobular emphysema 08/01/2017 Chronic obstructive pulmonary disease 08/01/2017 Atelectasis 08/01/2017 Scarring of lung 08/01/2017 Anxiety 07/06/2017 Lung nodule 10/19/2016 Overview (01/22/2024): Get with nonspecific findings on CT scan 06/2016. Repeat CT scan should be considered Sleep disorder 02/02/2015 Overview (01/22/2024): Saw [facility] and sleep on 01/15/2015: Dr. Johnson Likely DILLAN sleep study ordered. Given that he has RLS, He may have periodic limb movement disorder which can be checked for in the study. Check ferritin. Will await sleep study. Depression with anxiety 04/01/2014 Overview (06/16/2022): Dr. Pradhan at [facility]. Is going to establish care at [...] Sees this doctor once a year at [facility]. 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 07/14/2005 Overview (01/22/2024): Stent on right and fem- fem bypass on left IMO update Depressive disorder 07/14/2005 Alcohol abuse, in remission 06/19/2005 Encounters Date Type Department Care Team Description 07/04/2024 Refill [facility] [place] [address] Sesar Pereyra MD 06/24/2024 Orders Only [facility] [place], [place] [address] Sesar Pereyra MD Paroxysmal atrial fibrillation (CMS/HCC) (Primary Dx) 06/21/2024 Telephone [facility] [place] [address] Sesar Pereyra MD Medication Question 06/19/2024 Orders Only GENERIC EXTERNAL DATA DEPARTMENT Provider, Generic External Data 06/13/2024 1:00 PM EST Office Visit [facility] [address] [place] [address] Sesar Pereyra MD Kidney stone (Primary Dx); Primary hypertension; Low back pain at multiple sites; Tinnitus of right ear; Lower urinary tract symptoms 06/13/2024 Travel 06/12/2024 Orders Only GENERIC EXTERNAL DATA DEPARTMENT Provider, Generic External Data 05/30/2024 Telephone [facility] [place] [address] Sesar Pereyra MD Lab Orders; Referral 05/30/2024 Telephone [facility] [place], [place] [address] Sesar Pereyra MD 05/28/2024 Telephone [facility] [place] [address] Sesar Pereyra MD fyi 05/27/2024 Refill [facility] [address] [place] [address] Sesar Pereyra MD 05/23/2024 Telephone [facility] [place] [address] Sesar Foley MD Medication Question 05/15/2024 Telephone [facility] [address] [place] [address] Sesar Pereyra MD 05/09/2024 Telephone [facility] [address] [place] [address] Verona Thompson, CLAUDIA 05/07/2024 9:15 AM EST Office Visit [facility] [address] [place] [address] Natasha Jiang MD Kidney stone (Primary Dx) 05/07/2024 Telephone [facility] [address] [place] [address] Natasha Jiang MD Medication Question 05/07/2024 Orders Only [facility] [address] [place] [address] Natasha Jiang MD 05/07/2024 Travel 05/06/2024 Telephone [facility] [address] [place] [address] Sesar Pereyra MD Nurse Triage 04/30/2024 Refill [facility] [address] [place] [address] Sesar Pereyra MD Longstanding persistent atrial fibrillation (CMS/HCC); PVD (peripheral vascular disease) (CMS/HCC) 04/29/2024 Orders Only [facility] [address] [place] [address] Sesar Pereyra MD Closed nondisplaced fracture of acromial end of right clavicle, initial encounter 04/29/2024 Telephone [facility] [address] [place] [address] Sesar Pereyra MD Nurse Triage 04/28/2024 Refill [facility] [address] [place] [address] Sesar Pereyra MD 04/26/2024 Refill [facility] [address] [place], [place] [phone] Sesar Pereyra MD Closed nondisplaced fracture of acromial end of right clavicle, initial encounter 04/26/2024 Telephone [facility] [address] [place] [address] Sesar Pereyra MD Med Refill 04/18/2024 Refill [facility] [address] [place] [address] Loyda Jacobson RN Essential hypertension; Closed nondisplaced fracture of acromial end of right clavicle, initial encounter 04/18/2024 Telephone [facility] [address] [place] [address] Sesar Pereyra MD Med Refill 04/11/2024 Refill [facility] [address] [place] [address] Sesar Pereyra MD 04/11/2024 Refill [facility] [address] [place] [address] Natasha Jiang MD Closed nondisplaced fracture of acromial end of right clavicle, initial encounter 04/11/2024 Travel 04/10/2024 Refill [facility] [address] [place] [address] Sesar Pereyra MD Closed nondisplaced fracture of acromial end of right clavicle, initial encounter 04/10/2024 Telephone [facility] [address] [place] [address] Sesar Pereyra MD Med Refill from Last 3 Months Immunizations Name Administration Dates Next Due DTaP, Unspecified 08/01/2003 Influenza High-dose Quadriva lent Preservative Free 03/15/2023,03/01/2022,03/22/2021 Influenza, High Dose Seasona l, Preservative Free 01/22/2024,02/18/2020,01/12/2018,01/31 Influenza, IIV3, injectable 03/01/2022,1 05/22/2020,02/18/2020,02/17,01/12/2018,01/31/2017,02/18/2016 ,02/02/2015,04/15/2014,03/07/2011,100 08/2009,07/09/2006 Influenza, Unspecified 02/18/2020 Influenza, trivalent, adjuvanted 02/18/2016 [...] [facility] [address] [place] [address] Sesar Pereyra MD [address] [place] [address] Health Maintenance Due Date Last Done Comments Alcohol/Substance Use Screening 1959 Hepatitis A Vaccines (1 of 2 - Risk 2-dose series) 1966 RSV Patients and Patients Aged 60 years or older (1 - 1-dose 75+ series) 2022 COVID-19 Vaccine ( season) 2023 03/15/2023, 02/02/2022, 02/07/2021, Additional history exists Depression Monitoring (PHQ-9) 01/19/2024 07/19/2023, 07/19/2023 SDOH [...] Completed 01/22/2024, , 03/01/2022, Additional history exists HIB Vaccines Aged Out [...] WO CONTRAST Routine 06/19/2024 8:00 PM EST PROTHROMBIN TIME-INR Routine 06/19/2024 7:57 PM EST CBC WITH AUTO DIFFERENTIAL Routine 06/19/2024 7:57 PM EST XR ELBOW 3+ VIEWS LEFT Routine 7:[address] HEAD WO CONTRAST Routine 06/19/2024 7 :12 PM EST LIPASE Routine 06/19/2024 6:17 PM EST COMPREHENSIVE METABOLIC PANEL Routine 06/19/2024 6:17 PM EST XR SHOULDER 2+ VIEWS LEFT Routine 06/19/2024 [...] Routine 05/07/2024 9:33 AM EST Kidney stone HEPATITIS C ANTIBODY Routine 07/19/2023 11:42 AM EDT Annual physical exam LIPID PANEL, STANDARD Routine 03/05/2021 9:16 AM EDT from Last 3 Months or Most Recently Relevant to Health Maintenance Results * FL Guidance in OR (06/21/2024 5:50 PM EST) Anatomical Region Laterality Modality X-Ray Angiograph y 06/21/2024 5:50 PM EST Narrative 06/24/2024 8:13 AM EST ? [facility] ?[address] ?[place] [address] ? Fluoroscopy Report ? Signed ? Patient: Tho,Alex ?MR#: [id number] ?? [id number] ? : 1945 ?Acct:[id number] ? Age/Sex: 79 / M ?ADM Date: 02/19/25 ? Loc: HO.S3 ?363-2 ? Attending Dr: Tania Bernabe BANK VAULT ATTENDANT ? Ordering Physician: Royce Kothari MD ?? Date of Service: 06/21/24 ?? Procedure(s): FL guidance in OR ?? Accession Number(s): [id number] ? cc: Sesar Pereyra MD; Royce Kothari [...] DD/ 1750 ? TD/TT: 06/21/24 1750 ? Early Childhood Special Educator: ? Procedure Note Alonzo Ng - 06/24/2024 [place] [address] Fluoroscopy Report Signed Patient: Ronald Nettles#: [id number] : 1945cct:[id number] Age/Sex: 79 / MADM Date: 06/19/24 Loc: HO.S3 363-[address]: Tania Bernabe BANK VAULT ATTENDANT Ordering Physician: Royce Kothari MD Date of Service: 06/21/24 Procedure(s): FL guidance in OR Accession Number(s): [id number] cc: Sesar Pereyra MD; Royce Kothari MD [...] 06/24/24 0810 DD/ 1750 TD/TT: 06/21/24 1750 Early Childhood Special Educator: [facility] External Provider IMG IR PROCEDURES Final Result * CT Humerus (06/19/2024 8:00 PM EST) Anatomical Region Laterality Modality Computed Tomogra phy 06/19/2024 8:00 PM EST Narrative 06/19/2024 8:02 PM EST ? [facility] ?[address] ?[place] [address] ? [address] Scan Report ? Signed ? Patient: Alex Nettles ?MR#: [id number] ?? [id number] ? : 1945 ?Acct:[id number] ? Age/Sex: 79 / M ?ADM Date: 06/19/24 ? Loc: HO.ED ? Attending Dr: ? Ordering Physician: Angela Moura MD ?? Date of Service: 06/19/24 ?? Procedure(s): CT humerus LT wo IV con ?? Accession Number(s): [id number] ? cc: Sesar Pereyra MD; Angela Moura MD ? Report Number: ?? [id number]: Total DLP = ??192.00 mGy-cm ? CLINICAL [...] of the dorsal margin of the glenoid. Ecqnhvcu-qx-vmiug ?? 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 ?? 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 ?? Please refer to separate report for x-rays of the partially included elbow. ?? Mild imaged rib deformities in the iqtey-lu-etkq appear old/chronic. ? Impression: ?? 1. Anterior [...] by Franko Rutherford MD in OV> ? 06/19/242001 ? DD/ 99 ? TD/TT: 06/19/241999 ? Early Childhood Special Educator: ? Procedure Note Alonzo Ng - 06/20/[address] [place] [address] [address] Scan Report Signed Patient: Ronald Nettles#: [id number] : 1945cct:[id number] Age/Sex: 79 / MADM Date: 06/19/24 Loc: HO.ED Attending Dr: Ordering Physician: Angela Moura MD Date of Service: 06/19/24 Procedure(s): CT humerus LT wo IV con Accession Number(s): [id number] cc: Sesar Pereyra MD; Angela Moura MD Report Number: [id number]: Total DLP = 192.00 mGy-cm CLINICAL HISTORY: [...] of the dorsal margin of the glenoid. Wonhqlwm-ke-otygp effusion with lipohemarthrosis of the left glenohumeral joint. 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 Please refer to separate report for x-rays of the partially includedelbow. Mild imaged rib deformities in the bolmu-an-irvg appear old/chronic. Impression: 1. Anterior dislocation of [...] in OV> 06/19/242001 DD/ 99 TD/TT: 06/19/241999 Early Childhood Special Educator: [facility] External Provider IMG CT PROCEDURES Final Result * (ABNORMAL) CBC auto differential (06/19/2024 7:57 PM EST) White Blood Count 11.9(H) 4.8 - 10.8 X10*3/uL [facility] Red Blood Count 4.64 4.60 - 5.80 X10*6/uL [facility] Hemoglobin 14.3 14.0 - 18.0 g/dl [facility] Hematocrit 42.9 42.0 - 52.0 % [facility] Mean Corpuscular Volume 92.5 80.0 - 98.0 fL [facility] Mean Corpuscular Hemoglobin 30.8 27.0 - 33.0 pg [facility] Mean Corpuscular HGB Conc 33.3 31.0 - 36.0 g/dl [facility] Red Cell Distribution Width 14.4 11.0 - 16.0 % [facility] Platelet Count 238 160 - 400 X10*3/uL [facility] Mean Platelet Volume 9.9 9.4 - 12.4 fL [facility] Neutrophils Percent Auto 83.9(H) 45 - 73 % [facility] Imm Gran Pct Auto 0.3 0.0 - 0.4 % [facility] Lymphocytes Percent Auto 7.1(L) 20 - 40 % [facility] Monocytes Percent Auto 8.1 2 - 11 % [facility] Eosinophils Percent Auto 0.2 0 - 4 % [facility] Basophils Percent Auto 0.4 0 - 2 % [facility] NRBC Pct Auto 0.0 0.0 - 0.2 /100WBC [facility] Neutrophils Absolute Auto 10.0(H) 2.0 - 8.3 x10*3/uL [facility] Imm Gran Abs Auto 0.04(H) 0.00 - 0.03 X10*3/uL [facility] Lymphocytes Absolute Auto 0.9(L) 1.2 - 4.9 X10*3/uL [facility] Monocytes Absolute Auto 1.0 0.1 - 1.2 X10*3/uL [facility] Eosinophils Absolute Auto 0.0 0.0 - 0.4 X10*3/uL [facility] Basophils Absolute Auto 0.1 0.0 - 0.2 X10*3/uL [facility] NRBC Abs Auto 0.000 0.0 - 0.012 X10*3/uL [facility] 06/19/2024 7:57 PM EST 06/19/2024 8:05 PM EST us Generic External Data Provider LAB BLOOD ORDERAB LES Edited Result - Final [facility] [address] [place] [address] [phone] * (ABNORMAL) Prothrombin Time-INR (06/19/2024 7:57 PM EST) Prothrombin Time 16.0(H) 10.9 - 12.4 SEC [facility] INTERNATIONAL NORM RATIO 1.4(H) 0.9 - 1.1 [facility] Comment:INTERNATIONAL NORMAL IZED RATIO (INR) REFERENCE [...] Provider LAB BLOOD ORDERAB LES Final Result [facility] [address] [place] [address] [phone] * XR Elbow 3+ Views Left (06/19/2024 7:16 PM EST) Anatomical Region Laterality Modality Upper Extremities, Elbow Left Radiogr aphic Imaging 06/19/2024 7:16 PM EST Narrative 06/19/2024 7:18 PM EST ? [facility] ?[address] ?[place] [address] ?XRay Report ? Signed ? Patient: Tho,Alex ?MR#: [id number] ?? [id number] ? : 1945 ?Acct:[id number] ? Age/Sex: 79 / M ?ADM Date: //25 ? Loc: HO.ED ? Attending Dr: ? Ordering Physician: Angela Moura MD ?? Date of Service: 06/19/24 ?? Procedure(s): XR elbow LT min 3V ?? Accession Number(s): [id number] ? cc: Sesar Pereyra MD; Angela Moura [...] by Franko Rutherford MD in OV> ? 06/19/247 ? DD/ 15 ? TD/TT: 06/19/241915 ? Early Childhood Special Educator: ? Procedure Note Donmelorylanter, Image - 06/19/2024 [place] [address] XRay Report Signed Patient: Ronald Nettles#: [id number] : 1945cct:[id number] Age/Sex: 79 / MADM Date: 06/19/24 Loc: HO.ED Attending Dr: Ordering Physician: Angela Moura MD Date of Service: 06/19/24 Procedure(s): XR elbow LT min 3V Accession Number(s): [id number] cc: Sesar Pereyra MD; Angela Moura MD [...] in OV> 06/19/241916 DD/ 15 TD/TT: 06/19/241915 Early Childhood Special Educator: [facility] External Provider IMG XR PROCEDURES Final Result * CT Head w/o Contrast (06/19/2024 7:12 PM EST) Anatomical Region Laterality Modality Head, Neck Computed Tomogra phy 06/19/2024 7:12 PM EST Narrative 06/19/2024 7:14 PM EST ? [facility] ?[address] ?[place] [address] ? CT Scan Report ? Signed ? Patient: Tho,Aelx ?MR#: [id number] ?? [id number] ? : 1945 ?Acct:[id number] ? Age/Sex: 79 / M ?ADM Date: 06/19/24 ? Loc: HO.ED ? Attending Dr: ? Ordering Physician: Lonny Delgado ?? Date of Service: 06/19/24 ?? Procedure(s): CT head/brain wo IV con ?? Accession Number(s): [id number] ? cc: Sesar Pereyra MD; Lonny Delgado ? Report Number: ?? [id number]: Total DLP = ??652.00 mGy-cm ? CLINICAL [...] by Franko Rutherford MD in OV> ? 06/19/241912 ? DD/ 11 ? TD/TT: 06/19/241911 ? Early Childhood Special Educator: ? Procedure Note Donotuseinterpreter, Image - 06/19/[address] [place] [address] [address] Scan Report Signed Patient: Ronald Nettles#: [id number] : 1945cct:[id number] Age/Sex: 79 / MADM Date: 06/19/24 Loc: HO.ED Attending Dr: Ordering Physician: Lonny Delgado Date of Service: 06/19/24 Procedure(s): CT head/brain wo IV con Accession Number(s): [id number] cc: Sesar Pereyra MD; Lonny Delgado Report Number: [id number]: Total DLP = 652.00 mGy-cm CLINICAL HISTORY: [...] in OV> 06/19/241912 DD/ 11 TD/TT: 06/19/241911 Early Childhood Special Educator: [facility] External Provider IMG CT PROCEDURES Final Result * Lipase (06/19/2024 6:17 PM EST) Lipase 17 8 - 78 U/L [facility] 06/19/2024 6:17 PM EST 06/19/2024 6:19 PM EST us Generic External Data Provider LAB BLOOD ORDERAB LES Final Result [facility] [address] [place], [place] [phone] * (ABNORMAL) Comprehensive Metabolic Panel (06/19/2024 6:17 PM EST) Sodium 142 135 - 145 mmol/L [facility] Potassium 3.8 3.3 - 5.1 mmol/L [facility] Comment:Slight Hemolysis.Int erpret result with caution. Chloride 109(H) 96 - 108 mmol/L [facility] Carbon Dioxide 23 22 - 29 mmol/L [facility] Anion Gap 14 12 - 20 [facility] Urea Nitrogen (BUN) 13 9 - 16 mg/dL [facility] Creatinine, Serum 1.11 0.5 - 1.4 mg/dL [facility] Creatinine Clr Calc Pharmacy 72.1 [facility] Comment:eGFR (calculated fro m the MDRD study equation) and eCrCl(calculated from the Cockcroft-Gault equation) are based ondifferent parameters and may not yield comparable results.If eCrCl result is absurd, please check patient'sheight/weight. Estimated Glomerular Filt Rate >60 [facility] Comment:Chronic Kidney Disea se: Estimated GFR < 60 mL/min/1.22c6Cjwnnv Kidney Disease: Estimated GFR < 15 mL/min/1.73m2 Glucose 92 60 - 115 mg/dL [facility] Calcium 9.1 8.4 - 10.2 mg/dL [facility] Bilirubin, Total 0.5 0.0 - 1.0 mg/dL [facility] Aspartate Amino Transferase 27 5 - 37 U/L [facility] Comment:Slight Hemolysis.Int erpret result with caution. Alanine Aminotransferase 14 0 - 40 U/L [facility] Total Protein 7.7 6.5 - 8.0 g/dL [facility] Albumin Level 4.1 3.5 - 5.0 g/dL [facility] Alkaline Phosphatase 119(H) 39 - 117 U/L [facility] 06/19/2024 6:17 PM EST 06/19/2024 6:19 PM EST us Generic External Data Provider LAB BLOOD ORDERAB LES Final Result [facility] [address] [place] [address] [phone] * XR Shoulder 2+ Views Left (06/19/2024 4:00 PM EST) Anatomical Region Laterality Modality Upper Extremities, Shoulder Left Radi ographic Imaging 06/19/2024 4:00 PM EST Narrative 06/19/2024 4:23 PM EST ? [facility] ?[address] ? [place] [address] ?XRay Report ? Signed ? Patient: Alex Nettles ?MR#: [id number] ?? [id number] ? : 1945 ?Acct:[id number] ? Age/Sex: 79 / M ?ADM Date: 06/19/24 ? Loc: HO.HMGCX ? Attending Dr: Teresa Marie PA-C ? Ordering Physician: Teresa Marie PA-C ?? Date of Service: 06/19/24 ?? Procedure(s): XR shoulder LT min 2V ?? Accession Number(s): [id number] ? cc: Sesar Pereyra MD; Teresa Marie [...] DD/ 1600 ? TD/TT: 06/19/24 1611 ? Early Childhood Special Educator: ? Procedure Note Hernandez, Alonzo - 06/19/2024 [facility] [address] [place] [address] [place] [address] XRay Report Signed Patient: Alex Nettles#: [id number] : 1945cct:[id number] Age/Sex: 79 / MADM Date: 06/19/24 Loc: HO.HMGCX Attending Dr: Teresa Marie PA-C Ordering Physician: Teresa Marie PA-C Date of Service: 06/19/24 Procedure(s): XR shoulder LT min 2V Accession Number(s): [id number] cc: Sesar Pereyra MD; Teresa Marie PA-C [...] 06/19/24 1621 DD/ 1600 TD/TT: 06/19/24 1611 Early Childhood Special Educator: [facility] External Provider IMG XR PROCEDURES Final Result * Creatinine, Serum (06/12/2024 12:09 PM EST) Creatinine, Serum 1.13 0.5 - 1.4 mg/dL [facility] Estimated Glomerular Filt Rate >60 [facility] Comment:Chronic Kidney Disea se: Estimated GFR < 60 mL/min/1.88t8Udyfay Kidney Disease: Estimated GFR < 15 mL/min/1.73m2 06/12/2024 12:0 9 PM EST 06/12/2024 12:14 PM EST Generic External Data Provider LAB BLOOD ORDERAB LES Final Result [facility] [address] [place] [phone] * (ABNORMAL) BUN (Blood Urea Nitrogen) (06/12/2024 12:09 PM EST) Urea Nitrogen (BUN) 18(H) 9 - 16 mg/dL [facility] 06/12/2024 12:0 9 PM EST 06/12/2024 12:14 PM EST Generic External Data Provider LAB BLOOD ORDERAB LES Final Result Performing Organization Address [facility] de Phone Number [facility] [address] [place] [phone] * Calcium (06/12/2024 12:09 PM EST) Calcium 9.1 8.4 - 10.2 mg/dL [facility] 06/12/2024 12:0 9 PM EST 06/12/2024 12:14 PM EST Generic External Data Provider LAB BLOOD ORDERAB LES Final Result Performing Organization Address [facility] Number [facility] [address] [place] [phone] * (ABNORMAL) Electrolyte Panel (06/12/2024 12:09 PM EST) Sodium 142 135 - 145 mmol/L [facility] Potassium 4.0 3.3 - 5.1 mmol/L [facility] Comment:Slight Hemolysis.Int erpret result with caution. Chloride 109(H) 96 - 108 mmol/L [facility] Carbon Dioxide 24 22 - 29 mmol/L [facility] Anion Gap 13 12 - 20 [facility] 06/12/2024 12:0 9 PM EST 06/12/2024 12:14 PM EST Generic External Data Provider LAB BLOOD ORDERAB LES Final Result Performing Organization Address [facility] de Phone Number [facility] [address] [place] [phone] * XR KUB and Upright 2 Views (05/07/2024 10:21 AM EST) Anatomical Region Laterality Modality Radiographic Homa ging 05/07/2024 10:2 1 AM EST Narrative 05/07/2024 10:48 AM EST ? [facility] ?[address] ?[place] [address] ?XRay Report ? Signed ? Patient: Tho,Alex ?MR#: [id number] ?? [id number] ? : 1945 ?Acct:[id number] ? Age/Sex: 79 / M ?ADM Date: 05/07/24 ? Loc: HO.XRAY ? Attending Dr: Natasha Jiang MD ? Ordering Physician: Natasha Jiang MD ?? Date of Service: 05/07/24 ?? Procedure(s): XR KUB ?? Accession Number(s): [id number] ? cc: Sesar Pereyra MD; Natasha Jiang [...] DD/ 1021 ? TD/TT: 05/07/24 1040 ? Early Childhood Special Educator: ? Procedure Note Hernandez, Image - 05/07/[address] [address] XRay Report Signed Patient: Ronald Nettles#: [id number] : 7Acct:[id number] Age/Sex: 79 / MADM Date: 05/07/24 Loc: [facility] Attending Dr: Natasha Jiang MD Ordering Physician: Natasha Jiang MD Date of Service: 05/07/24 Procedure(s): XR KUB Accession Number(s): [id number] cc: Sesar Pereyra MD; Natasha Jiang MD [...] 05/07/24 1045 DD/ 1021 TD/TT: 05/07/24 1040 Early Childhood Special Educator: Natasha Jiang MD IMG XR PROCEDURES Edited [...] TEST ENTER/EDIT OR DERABLES Final Result * Hepatitis C Ab (07/19/2023 11:42 AM EDT) Pathologist [facility] Hepatitis C Antibody Nonreactive Nonreactive [facility] Comment:Antibodies to HCV no t detected; does not exclude early acuteHCV infection. Blood Venous blood specimen / Unknown 07/19/2023 11:42 AM EDT 07/19/2023 2:25 PM EDT us Sesar Pereyra MD LAB BLOOD ORDERABLES Final Result [facility] [address] [place] [phone] * (ABNORMAL) LIPID PANEL, STANDARD (03/05/2021 [...] ?? Ulisses MCDANIEL et al. MANDEEP. 2013;310(19): 3978-2713 ?? (http://education.BitWall.Multiplicom/faq/SWM449) Non-HDL Cholesterol 104 <130 mg/dL (calc) FOUNDATION [...] Pereyra MD LAB BLOOD ORDERABLES Final Result [facility] [address] from Last 3 Months or Most Recently Relevant to Health Maintenance Insurance [employer] MEDICARE REPLACEMENT [facility] FULL * Guarantor: Alex Nettles Account Type Relation to Patient Date of Phone Billing Address Personal/Family Self [address] [facility] [address] [place] Care Teams Culinary Manager Relationship Specialty Start Date End Date Sesar Pereyra MD [address] [place] [address] PCP - General Internal Medicine 03/01/21 [facility] 03/22/24
--- OUTSIDE RECORDS SUMMARY | 2024-07-05 11:06 | XMS_ITS | Encounter Summary ---
Author Organization [employer] Address 75 [facility] 7t [place] [address] Care Team Providers Care Excelsior Machine Tender Name Role Phone Sesar Pereyra MD Primary Care Provider [phone]- [phone] Encounter Details Date Type Department Care Team ([facility] st Contact Info) Description 11/01/2023 Orders Only [facility] MED & PEDS [address] [place], [place] [phone] Sesar Pereyra MD [address] [place] [address] Social History Tobacco Use Types Packs/Day Years [...] [facility] [address] [place] [address] Sesar Pereyra MD [address] [place] [address] documented as of this encounter Visit Diagnoses Not on filedocumented in this encounter Additional Health Concerns Assessment Noted Time PHQ-9 Depression Total Score: 16 024 10:59 AM EDT documented as of this encounter Care Teams Excelsior Machine Tender Relationship Specialty Start Date End Date Sesar Pereyra MD [address] [place] [address] PCP - General Internal Medicine 03/01/21 [facility] documented as of this encounter
--- OUTSIDE RECORDS SUMMARY | 2024-07-05 11:06 | XMS_ITS | Encounter Summary ---
Author Organization [facility] Address [address] [place] [address] Care Team Providers Care Commercial Painter Name Role Phone Ayo Carpio MD Primary Care Provider [phone] Annalee Jones MD Primary Care Provider Un available Yolande Nicholas DO Primary Care Pro vider Unavailable Anuj Priest DO Primary Care Provider Judy [facility], Pcp Primary Care Provider Unavailabl e Encounter Details Date Type Department Care Team Description 11/28/2016 [facility] Medical Records [address] [place] [address] Abstract, Provider Social History Tobacco Use Types [...] filedocumented in this encounter Care Teams Commercial Painter Relationship Specialty Start Date End Date Ayo Carpio MD [address] [place] [address] [phone] PCP - General Internal Medicine 07/19/16 01/05/17 Annalee Jones MD [address] [place] [address] PCP - General Internal Medicine 01/06/17 12/02/18 Yolande Nicholas, [address] [place] [address] PCP - General Internal Medicine 12/03/18 10/08/20 Anuj Priest DO [address] [place] [address] PCP - General Internal Medicine 10/09/20 06/16/21 [facility], Pcp [address] [place], [place] [phone] PCP - General Internal Medicine 06/17/21 documented as of this encounter
--- OUTSIDE RECORDS SUMMARY | 2024-07-05 11:06 | XMS_ITS | Encounter Summary ---
Author Organization [facility] Address [address] [place] [address] Care Team Providers Care Roustabout Crew Leader Name Role Phone Annalee Jones MD Primary Care Provider Un available Yolande Nicholas DO Primary Care Pro vider Unavailable Anuj Priest DO Primary Care Provider Judy [facility], Pcp Primary Care Provider Unavailabl e Encounter Details Date Type Department Care Team Description 11/15/2017 Refill Adult Medicine [address] [address] Annalee Jones MD Social History Tobacco Use [...] MG tablet [Annalee Jones MD] Preferred pharmacy: [facility] - [facility] [address] [facility] [address] Comment: would like a refill of 10 tablets of 20Mg Lisinopril Alex Nettles 1945 [facility] [place] documented in this encounter Plan of Treatment Not on file documented as of this encounter Visit Diagnoses Not on filedocumented in this encounter Care Teams Roustabout Crew Leader Relationship Specialty Start Date End Date Annalee Jones MD PCP - General Internal Medicine 01/06/17 9 Yolande Nicholas DO PCP - General Internal Medicine 12/03/18 10/08/20 Anuj Priest DO PCP - General Internal Medicine 10/09/20 2 [facility], Pcp PCP - General Internal Medicine 06/17/21 documented as of this encounter
--- OUTSIDE RECORDS SUMMARY | 2024-07-05 11:06 | XMS_ITS | Encounter Summary ---
Author Organization [employer] Address 75 [facility] [address] [address] Care Team Providers Care Supervisor Cab Name Role Phone Sesar Pereyra MD Primary Care Provider [phone]- [phone] Reason for Referral * Consultation (Routine) - Closed Specialty Diagnoses / Procedures Referred By Contac t Referred To Contact Geriatric Medicine Diagnoses Memory disturbance Sesar Pereyra MD [address] [place] [address] Phone: tel: fax: [facility] [address] [place] [address] Phone: tel: fax: Referral ID Status Reason Start Date Expiration Date V isits Requested Visits Authorized [id number] Closed Specialty Services Required 01/11/2024 01/10/2025 1 1 Encounter Details Date Type Department Care Team (Late st Contact Info) Description 01/11/2024 Orders Only [facility] CHC MED & PEDS [address] [place], [place] [phone] Sesar Pereyra MD [address] [place], [place] [phone] Memory disturbance (Primary Dx) Social History Tobacco [...] [facility] MED & PEDS [address] [place] [address] Sesar Pereyra MD [address] [place] [address] Scheduled Referrals Name Type Priority Associated Diagnoses Orde r Schedule Referral to Geriatrics Outpatient Referral Routine Memory disturbance Expected: 01/11/2024 (Approximate), Expires: 01/10/2025 documented as of this encounter Visit Diagnoses Diagnosis Memory disturbance- Primary Memory loss documented in this encounter Additional Health Concerns Assessment Noted Time PHQ-9 Depression Total Score: 16 024 10:59 AM EDT documented as of this encounter Care Teams Supervisor Cab Relationship Specialty Start Date End Date Sesar Pereyra MD [address] [place] [address] PCP - General Internal Medicine 03/01/21 [facility] 03/[facility]24 documented as of this encounter
--- OUTSIDE RECORDS SUMMARY | 2024-07-05 11:06 | XMS_ITS | Encounter Summary ---
Author Organization [facility] [employer] [facility] Address [address] [place] [address] Care Team Providers Care Recreational Therapist Name Role Phone Ayo Carpio MD Primary Care Provider [phone] Annalee Jones MD Primary Care Provider Un available Yolande Nicholas DO Primary Care Pro vider Unavailable Anuj Priest DO Primary Care Provider Judy [facility], Pcp Primary Care Provider Unavailabl e Encounter Details Date Type Department Care Team Description 10/10/2016 [facility] Medical Records [address] [place] [address] Tania Bernabe NP Social History Tobacco Use [...] on filedocumented in this encounter Care Teams Recreational Therapist Relationship Specialty Start Date End Date Ayo Carpio MD [address] [place] [address] PCP - General Internal Medicine 07/19/16 01/05/17 Annalee Jones MD [address] [place] [address] PCP - General Internal Medicine 01/06/17 12/02/18 Yolande Nicholas, DO [address] [place] [address] PCP - General Internal Medicine 12/03/18 10/08/20 Anuj Priest, [address] [place] [address] PCP - General Internal Medicine 10/09/20 06/16/21 [facility], [address] [address] PCP - General Internal Medicine 06/17/21 documented as of this encounter
--- OUTSIDE RECORDS SUMMARY | 2024-07-05 11:06 | XMS_ITS | Encounter Summary ---
Author Organization [facility] Address [address] [place] [address] Care Team Providers Care Steam Bone Press Tender Name Role Phone Annalee Jones MD Primary Care Provider Un available Yolande Nicholas DO Primary Care Pro vider Unavailable Anuj Priest DO Primary Care Provider Judy [facility], Pcp Primary Care Provider Unavailabl e Reason for Visit * Reason Onset Date Comments TEST RESULTS 08/24/2018 Encounter Details Date Type Department Care Team Description 08/24/2018 Telephone Adult Medicine [facility] [address] [place] [address] Melva Salgado, [facility] [address] [place] [address] TEST RESULTS Social History Tobacco Use Types [...] filedocumented in this encounter Care Teams Steam Bone Press Tender Relationship Specialty Start Date End Date Annalee Jones MD PCP - General Internal Medicine 01/06/17 9 Yolande Nicholas DO PCP - General Internal Medicine 12/03/18 10/08/20 Anuj Priest DO PCP - General Internal Medicine 10/09/20 2 Jj Pcp PCP - General Internal Medicine 06/17/21 documented as of this encounter
--- OUTSIDE RECORDS SUMMARY | 2024-07-05 11:06 | XMS_ITS | Encounter Summary ---
Author Organization [facility] Address [address] [place] [address] Care Team Providers Care Hadoop Administrator Name Role Phone Annalee Jones MD Primary Care Provider Un available Yolande Nicholas DO Primary Care Pro vider Unavailable Anuj Priest DO Primary Care Provider Judy vailable [facility], Pcp Primary Care Provider Unavailabl e Encounter Details Date Type Department Care Team Description 08/24/2017 Release of Information Medical Records [address] [place] [address] Abstract, Provider Social History Tobacco Use Types [...] filedocumented in this encounter Care Teams Hadoop Administrator Relationship Specialty Start Date End Date Annalee Jones MD PCP - General Internal Medicine 01/06/17 9 Yolande Nicholas DO PCP - General Internal Medicine 12/03/18 10/08/20 Anuj Priest DO PCP - General Internal Medicine 10/09/20 2 Jj, Pcp PCP - General Internal Medicine 06/17/21 documented as of this encounter
--- OUTSIDE RECORDS SUMMARY | 2024-07-05 11:06 | XMS_ITS | Encounter Summary ---
Author Organization [employer] Address 75 [facility] 7t [place] [address] Care Team Providers Care Coding Manager Name Role Phone Sesar Pereyra MD Primary Care Provider [phone] Reason for Visit * Reason Comments Med Refill Encounter Details Date Type Department Care Team ([facility] st Contact Info) Description 10/30/2023 Refill [facility] CHC MED & PEDS [address] [place], [place] [phone] Sesar Pereyra MD [address] [place] [address] PVD (peripheral vascular disease) (CMS/HCC); Longstanding persistent [...] Upcoming Encounters Date Type Department Care Team ([facility] st Contact Info) Description 09/11/2024 10:30 AM EDT Office Visit [facility] CH[facility] MED & PEDS [address] [place] [address] Ssear Pereyra MD [address] [place] [address] documented as of this encounter Visit Diagnoses Diagnosis PVD (peripheral vascular disease) (CMS/HCC) Unspecified peripheral vascular disease Longstanding persistent atrial fibrillation (CMS/HCC) documented in this encounter Additional Health Concerns Assessment Noted Time PHQ-9 Depression Total Score: 16 024 10:59 AM EDT documented as of this encounter Care Teams Coding Manager Relationship Specialty Start Date End Date Sesar Pereyra MD [address] [place] [address] PCP - General Internal Medicine 03/01/21 [facility] 03/22/24 documented as of this encounter
--- OUTSIDE RECORDS SUMMARY | 2024-07-05 11:06 | XMS_ITS | Encounter Summary ---
Author Organization [employer] Address 75 [facility] 7t [place] [address] Care Team Providers Care Automatic Fabric Cutter Name Role Phone Sesar Pereyra MD Primary Care Provider [phone]- [phone] Reason for Visit * Reason Onset Date Comments Med Refill 04/02/2024 Encounter Details Date Type Department Care Team ([facility] st Contact Info) Description 04/02/2024 Telephone [facility] MEDICINE [address] [place] [address] Sesar Pereyra MD [address] [place] [address] Med Refill Social History Tobacco Use Types [...] 9:39 AM EST Medication was sent to [email or web address] on 04/01/24 #30 with 11 refills. * Telephone Encounter - Miri Young - 04/02/2024 9:33 AM EST TC from pt requesting medication refill. Medications needing refill : metoprolol tartrate (Lopressor) 25 MG tablet To be sent to: [facility] documented in this encounter Plan of Treatment Upcoming Encounters Date Type Department Care Team (Late st Contact Info) Description 09/11/2024 10:30 AM EDT Office Visit [facility] MED & PEDS [address] [place] [address] Sesar Pereyra MD [address] [place] [address] documented as of this encounter Visit Diagnoses Not on filedocumented in this encounter Additional Health Concerns Assessment Noted Time PHQ-9 Depression Total Score: 16 024 10:59 AM EDT documented as of this encounter Care Teams Automatic Fabric Cutter Relationship Specialty Start Date End Date Sesar Pereyra MD [address] [place] [address] PCP - General Internal Medicine 03/01/21 [facility] 03/22/24 documented as of this encounter
--- OUTSIDE RECORDS SUMMARY | 2024-07-05 11:07 | XMS_ITS | Encounter Summary ---
Author Organization [facility] Address [address] [place] [address] Care Team Providers Care Drill Sharpener Name Role Phone Yolande Nicholas DO Primary Care Pro vider Unavailable Anuj Priest DO Primary Care Provider [facility], Pcp Primary Care Provider [facility] e Encounter Details Date Type Department Care Team Description 03/30/2020 Pt. Non Urgent Medic al Question Adult Medicine [address] [address] Yolande Nicholas DO Social History Tobacco Use [...] Subject: PT for Arun Nettles Madison Walters, [facility] has recommended that Arun receive P.T. LASHAWN. However, the [facility] has no openings until May. I would like to have Arun attend the Cardiac Rehab P.T. program at [facility]. His muscles are atrophying and he just shuffles when he walks. I have heard very good reports from friends about the [facility] Cardiac Rehab. program and would like Arun to be referred there as soon as possibleso he can begin work on strengthening his leg muscles. Arun is very eager to get started...a good attitude finally! Thank you, Ame documented in this encounter Plan of Treatment Not on file documented as of this encounter Visit Diagnoses Not on filedocumented in this encounter Care Teams Drill Sharpener Relationship Specialty Start Date End Date Yolande Nicholas DO PCP - General Internal Medicine 12/03/18 10/08/20 Anuj Priest DO PCP - General Internal Medicine 10/09/[address] [place] [address], Pcp PCP - General Internal Medicine 06/17/21 documented as of this encounter
--- OUTSIDE RECORDS SUMMARY | 2024-07-05 11:07 | XMS_ITS | Encounter Summary ---
Author Organization [employer] Address 75 [facility] 7t [place] [address] Care Team Providers Care Care Clinician Name Role Phone Sesar Pereyra MD Primary Care Provider [phone]- [phone] Encounter Details Date Type Department Care Team (Late st Contact Info) Description 05/30/2024 Telephone [facility] MEDICINE [address] [place] [address] Sesar Pereyra MD [address] [place] [address] Social History Tobacco Use Types Packs/Day Years Used Date Smoking Tobacco: Former Cigarettes Passive Smoke Exposure: Past Smokeless Tobacco: Never Comments:Quit 35 years ago. Depression Answer Date Recorded Patient Health Questionnaire-9 Score 16 07/19/2023 Patient Health Questionnaire-9 Score 16 07/19/2023 Last PHQ-9: Questionnaire Data Not on file 0 07/19/2023 Housing Stability Answer Date Recorded What is your housing situation today? I have yenny raamn 07/12/[address] you li [...] [facility] MED & PEDS [address] [place] [address] Sesar Pereyra MD [address] [place] [address] documented as of this encounter Visit Diagnoses Not on filedocumented in this encounter Additional Health Concerns Assessment Noted Time PHQ-9 Depression Total Score: 16 024 10:59 AM EDT documented as of this encounter Care Teams Care Clinician Relationship Specialty Start Date End Date Sesar Pereyra MD [address] [place] [address] PCP - General Internal Medicine 03/01/21 [facility] 03/22/[facility] documented as of this encounter
--- OUTSIDE RECORDS SUMMARY | 2024-07-05 11:07 | XMS_ITS | Encounter Summary ---
Author Organization [facility] Address [address] [place] [address] Care Team Providers Care Feedlot Manager Name Role Phone Yolande Nicholas DO Primary Care Pro vider Unavailable Anuj Priest DO Primary Care Provider [facility], Pcp Primary Care Provider [facility] e Encounter Details Date Type Department Care Team Description 05/20/2019 Release of Information Medical Records [address] [place] [address] Abstract, Provider Social History Tobacco Use Types [...] EST AUTHORIZATION TO OBTAIN RECORDS MAILED TO [facility]. documented in this encounter Plan of Treatment Not on file documented as of this encounter Visit Diagnoses Not on filedocumented in this encounter Care Teams Feedlot Manager Relationship Specialty Start Date End Date Yolande Nicholas DO PCP - General Internal Medicine 12/03/18 10/08/20 Anuj Priest DO PCP - General Internal Medicine 10/09/20 2 2 [facility], Pcp PCP - General Internal Medicine 06/17/21 documented as of this encounter
--- OUTSIDE RECORDS SUMMARY | 2024-07-05 11:07 | XMS_ITS | Encounter Summary ---
Author Organization [employer] [employer] [facility] Address [address] [place] [address] Care Team Providers Care Government Clerk Name Role Phone Yolande Nicholas DO Primary Care Pro vider Unavailable Anuj Priest DO Primary Care Provider Judy álvarez [facility], Pcp Primary Care Provider Unavailabl e Encounter Details Date Type Department Care Team Description 03/06/2019 [facility] Report Medical Records [address] [place] [address] Adilia Navarro PA-C Social History Tobacco Use [...] on filedocumented in this encounter Care Teams Government Clerk Relationship Specialty Start Date End Date Yolande Nicholas DO PCP - General Internal Medicine 12/03/18 10/08/20 Anuj Priest DO PCP - General Internal Medicine 10/09/20 2 [facility], Pcp PCP - General Internal Medicine 06/17/21 documented as of this encounter
--- OUTSIDE RECORDS SUMMARY | 2024-07-05 11:07 | XMS_ITS | Encounter Summary ---
Author Organization [employer] Address 75 [facility] 7t [place] [address] Care Team Providers Care Wind Projects Supervisor Name Role Phone Sesar Pereyra MD Primary Care Provider [phone] Reason for Visit * Reason Comments Med Refill Encounter Details Date Type Department Care Team ([facility] Contact Info) Description 10/19/2022 Refill [facility] MED & PEDS [address] [place] [address] Sesar Pereyra MD [address] [place] [address] Social History Tobacco Use Types Packs/Day Years [...] Encounters Date Type Department Care Team ([facility] Contact Info) Description 09/11/2024 10:30 AM EDT Office Visit [facility] MED & PEDS [address] [place] [address] Sesar Pereyra MD [address] [place] [address] documented as of this encounter Visit Diagnoses Not on filedocumented in this encounter Care Teams Wind Projects Supervisor Relationship Specialty Start Date End Date Sesar Pereyra MD [address] [place] [address] PCP - General Internal Medicine 03/01/[address] [facility] 03/22/24 documented as of this encounter
--- OUTSIDE RECORDS SUMMARY | 2024-07-05 11:07 | XMS_ITS | Encounter Summary ---
Author Organization [facility] Address [address] [place] [address] Care Team Providers Care Rn Telemetry Name Role Phone Yolande Nicholas DO Primary Care Pro vider Unavailable Anuj Priest DO Primary Care Provider [facility], Pcp Primary Care Provider Unavailabl e Reason for Visit * Reason Onset Date Comments Faxed Refill 05/30/2019 Encounter Details Date Type Department Care Team Description 05/30/2019 Refill Adult Medicine [address] [address] Yolande Nicholas DO Faxed Refill Social History [...] the RX # listed on the fax? [id number] Patients current insurance carrier is: Payor: [facility] MEDICARE / Plan: MEDICARE FFS $5 [id number] / Product Type: MEDICARE [id number] documented in this encounter Plan of Treatment Not on file documented as of this encounter Visit Diagnoses Not on filedocumented in this encounter Care Teams Rn Telemetry Relationship Specialty Start Date End Date Yolande Nicholas DO PCP - General Internal Medicine 12/03/18 10/08/20 Anuj Priest DO PCP - General Internal Medicine 10/09/[address] [place] [address], Pcp PCP - General Internal Medicine 06/17/21 documented as of this encounter
--- OUTSIDE RECORDS SUMMARY | 2024-07-05 11:07 | XMS_ITS | Encounter Summary ---
Author Organization [employer] Address 75 [facility] 7t [place] [address] Care Team Providers Care Weapons Mechanic Name Role Phone Sesar Pereyra MD Primary Care Provider [phone] Reason for Visit * Reason Comments Med Refill Encounter Details Date Type Department Care Team ([facility] Contact Info) Description 10/26/2022 Refill [facility] MED & PEDS [address] [place] [address] Sesar Pereyra MD [address] [place] [address] Social History Tobacco Use Types Packs/Day Years [...] Upcoming Encounters Date Type Department Care Team ([facility] Contact Info) Description 09/11/2024 10:30 AM EDT Office Visit [facility] MED & PEDS [address] [place] [address] Sesar Pereyra MD [address] [place] [address] documented as of this encounter Visit Diagnoses Not on filedocumented in this encounter Care Teams Weapons Mechanic Relationship Specialty Start Date End Date Sesar Pereyra MD [address] [place] [address] PCP - General Internal Medicine 03/01/21 [facility] 03/22/24 documented as of this encounter
--- OUTSIDE RECORDS SUMMARY | 2024-07-05 11:07 | XMS_ITS | Encounter Summary ---
Author Organization [employer] Address [address] [facility] 7t [place] [address] Care Team Providers Care Diversified Crops Ii Farmworker Name Role Phone Sesar Pereyra MD Primary Care Provider [phone]- [phone] Reason for Visit * Reason Onset Date Comments fyi 05/28/2024 Encounter Details Date Type Department Care Team ([facility] st Contact Info) Description 05/28/2024 Telephone [facility] MEDICINE [address] [place] [address] Sesar Pereyra MD [address] [place] [address] fy Social History Tobacco Use Types Packs/Day [...] AM EST Tc from [facility] with [employer] [facility] Care informing pt verbalized to her that he been taking THD Gummies 2x a day morning and afternoon. Gummies are 10mg per gummy as he's aware of what he's taking. documented in this encounter Plan of Treatment Upcoming Encounters Date Type Department Care Team ([facility] st Contact Info) Description 09/11/2024 10:30 AM EDT Office Visit [facility] MED & PEDS [address] [place] [address] Sesar Pereyra MD [address] [place] [address] documented as of this encounter Visit Diagnoses Not on filedocumented in this encounter Additional Health Concerns Assessment Noted Time PHQ-9 Depression Total Score: 16 024 10:59 AM EDT documented as of this encounter Care Teams Diversified Crops Ii Farmworker Relationship Specialty Start Date End Date Sesar Pereyra MD [address] [place] [address] PCP - General Internal Medicine 03/01/21 [facility] 03/22/24 documented as of this encounter
--- OUTSIDE RECORDS SUMMARY | 2024-07-05 11:07 | XMS_ITS | Encounter Summary ---
Author Organization [facility] Address [address] [place] [address] Care Team Providers Care Heavy Line Technician Name Role Phone Yolande Nicholas DO Primary Care Pro vider Unavailable Anuj Priest DO Primary Care Provider [facility], Pcp Primary Care Provider Unavailabl e Reason for Visit * Reason Onset Date Comments Provider Call Back 04/29/2019 Encounter Details Date Type Department Care Team Description 04/29/2019 Telephone Adult [address] [address] Yolande Nicholas DO Provider Call Back Social [...] EST Im not aware of any in [place] * Telephone Encounter - [facility]a Kan R.N. [...] Dr. Alvarez mentioned a rehab facility in [place] last time, but he cannot remember the address, phone number, or name of the facility. documented in this encounter Plan of Treatment Not on file documented as of this encounter Visit Diagnoses Not on filedocumented in this encounter Care Teams Heavy Line Technician Relationship Specialty Start Date End Date Yolande Nicholas DO PCP - General Internal Medicine 12/03/18 10/08/20 Anuj Priest DO PCP - General Internal Medicine 10/09/[address] [place] [address], Pcp PCP - General Internal Medicine 06/17/21 documented as of this encounter
--- OUTSIDE RECORDS SUMMARY | 2024-07-05 11:07 | XMS_ITS | Encounter Summary ---
Author Organization [employer] [facility] Address [address] [place] [address] Care Team Providers Care Research Program Manager Name Role Phone Ghassan Burciaga MD Primary Care Provider Unavail able Pierre Arevalo MD Primary Care Provider Judy vailable Gerson Dawson MD Primary Care Provider Unavail able [facility], Pcp Primary Care Provider Unavailabl e Coleman Mccarthy MD Primary Care Provider Unavaila Ayo Demarco MD Primary Care Provider [phone] Annalee Jones MD Primary Care Provider Un available Pascual Nicholasabela DO Primary Care Pro vider Unavailable Anuj Priest DO Primary Care Provider Judy vailable [facility], Pcp Primary Care Provider Unavailabl e Encounter Details Date Type Department Care Team Description 11/03/2006 Hospital Medical Records [address] [place] [address] Tyler Bloom MD Social History Tobacco Use [...] filedocumented in this encounter Care Teams Research Program Manager Relationship Specialty Start Date End Date Ghassan Burciaga MD PCP - General 07/24/00 05/06/13 Pierre Arevalo MD PCP - General Internal Medicine 05/07/13 4 Gerson Dawson MD PCP - General Internal Medicine 01/30/14 03/20/14 [facility], Pcp PCP - General Internal Medicine 03/21/14 05/06/14 Coleman Mccarthy MD PCP - General Internal Medicine 05/07/14 07/18/16 Ayo Carpio MD [address] [place], [place] [id number] PCP - General Internal Medicine 07/19/16 01/05/17 Annalee Jones MD [address] [place], [place] [id number] PCP - General Internal Medicine 01/06/17 12/02/18 Yolande Nicholas, DO [address] [place] [address] PCP - General Internal Medicine 12/03/18 10/08/20 Anuj Priest, [address] [place] [address] PCP - General Internal Medicine 10/09/20 06/16/21 [facility], Pcp PCP - General Internal Medicine 06/17/21 documented as of this encounter
--- OUTSIDE RECORDS SUMMARY | 2024-07-05 11:07 | XMS_ITS | Encounter Summary ---
Author Organization [employer] [facility] Address [address] [place] [address] Care Team Providers Care Senior Medical Writer Name Role Phone Yolande Nicholas DO Primary Care Pro vider Unavailable Anuj Priest DO Primary Care Provider [facility], Pcp Primary Care Provider Unavailabl e Reason for Visit * Reason Onset Date Comments Acoustical Tile Patternmaker Feedback 02/18/[address] Encounter Details Date Type Department Care Team Description 02/18/2019 Telephone Adult [address] [address] Yolande Nicholas DO Acoustical Tile Patternmaker Feedback (Low Dose CT) Social History Tobacco [...] filedocumented in this encounter Care Teams Senior Medical Writer Relationship Specialty Start Date End Date Yoladne Nicholas DO PCP - General Internal Medicine 12/03/18 10/08/20 Anuj Priest DO PCP - General Internal Medicine 10/09/20 2 [facility], Pcp PCP - General Internal Medicine 06/17/21 documented as of this encounter
--- OUTSIDE RECORDS SUMMARY | 2024-07-05 11:07 | XMS_ITS | Encounter Summary ---
Author Organization [facility] [facility] Address [address] [place] [address] Care Team Providers Care Business Management Intern Name Role Phone Ghassan Burciaga MD Primary Care Provider Unavail able Pierre Arevalo MD Primary Care Provider Judy vailable Gerson Dawson MD Primary Care Provider Unavail able [facility], Pcp Primary Care Provider Unavailabl e Coleman Mccarthy MD Primary Care Provider Unavaila Ayo Demarco MD Primary Care Provider [phone] Annalee Jones MD Primary Care Provider Un available Pascual Nicholasabela DO Primary Care Pro vider Unavailable Anuj Priest DO Primary Care Provider Judy vailable [facility], Pcp Primary Care Provider Unavailabl e Encounter Details Date Type Department Care Team Description 11/04/2006 Hospital Medical Records [address] [place], [place] [id number] [place] [address] Social History Tobacco Use Types Packs/Day Years [...] filedocumented in this encounter Care Teams Business Management Intern Relationship Specialty Start Date End Date Ghassan Burciaga MD PCP - General 07/24/00 05/06/13 Pierre Arevalo MD PCP - General Internal Medicine 05/07/13 4 Gerson Dawson MD PCP - General Internal Medicine 01/30/14 03/20/14 [facility], Pcp PCP - General Internal Medicine 03/21/14 05/06/14 Coleman Mccarthy MD PCP - General Internal Medicine 05/07/14 07/18/16 Ayo Carpio MD [address] [place], [place] [id number] PCP - General Internal Medicine 07/19/16 01/05/17 Annalee Jones MD [address] [place], [place] [id number] PCP - General Internal Medicine 01/06/17 12/02/18 Yolande Nicholas DO [address] [place] [address] PCP - General Internal Medicine 12/03/18 10/08/20 Anuj Priest DO [address] [place] [address] PCP - General Internal Medicine 10/09/20 06/16/21 [facility], Pcp PCP - General Internal Medicine 06/17/21 documented as of this encounter
--- OUTSIDE RECORDS SUMMARY | 2024-07-05 11:07 | XMS_ITS | Encounter Summary ---
Author Organization [employer] Address [address] [facility] 7 [place] [address] Care Team Providers Care Assembler Carbon Brushes Name Role Phone Sesar Pereyra MD Primary Care Provider [phone] Encounter Details Date Type Department Care Team ([facility] Contact Info) Description 10/13/2022 Orders Only [facility] MED & PEDS [address] [place] [address] Sesar Pereyra MD [address] [place] [address] Social History Tobacco Use Types Packs/Day Years [...] 09/11/2024 10:30 AM EDT Office Visit [facility] MED & PEDS [address] [place] [address] Sesar Pereyra MD [address] [place] [address] documented as of this encounter Visit Diagnoses Not on filedocumented in this encounter Care Teams Assembler Carbon Brushes Relationship Specialty Start Date End Date Sesar Pereyra MD [address] [place] [address] PCP - General Internal Medicine 03/01/21 [facility] 03/22/24 documented as of this encounter
--- OUTSIDE RECORDS SUMMARY | 2024-07-05 11:07 | XMS_ITS | Encounter Summary ---
Author Organization [facility] Address [address] [place] [address] Care Team Providers Care Surety Bond Agent Name Role Phone Yolande Nicholas DO Primary Care Pro vider Unavailable Anuj Priest DO Primary Care Provider Judy Gardner, Pcp Primary Care Provider Unavailabl e Encounter Details Date Type Department Care Team Description 04/13/2020 Database Specialist Report Medical Records [address] [place] [address] Abstract, Provider Social History Tobacco Use Types [...] on filedocumented in this encounter Care Teams Surety Bond Agent Relationship Specialty Start Date End Date Yolande Nicholas DO PCP - General Internal Medicine 12/03/18 10/08/20 Anuj Priest DO PCP - General Internal Medicine 10/09/20 2 J[facility], Pcp PCP - General Internal Medicine 06/17/21 documented as of this encounter
--- OUTSIDE RECORDS SUMMARY | 2024-07-05 11:07 | XMS_ITS | Encounter Summary ---
Author Organization [employer] Address [address] [facility] [address] [place] [address] Care Team Providers Care Policy Issue Clerk Name Role Phone Sesar Pereyra MD Primary Care Provider [phone]- [phone] Reason for Visit * Reason Onset Date Comments Med Refill 04/18/2024 Encounter Details Date Type Department Care Team ([facility] st Contact Info) Description 04/18/2024 Telephone [facility] MEDICINE [address] [place] [address] Sesar Pereyra MD [address] [place] [address] Med Refill Social History Tobacco Use Types [...] needing refill : To be sent to: [facility] - [place], [place] - [address] [place] [address] [place] documented in this encounter Plan of Treatment Upcoming Encounters Date Type Department Care Team (Late st Contact Info) Description 09/11/2024 10:30 AM EDT Office Visit [facility] MED & PEDS [address] [place] [address] Sesar Pereyra MD [address] [place] [address] documented as of this encounter Visit Diagnoses Not on filedocumented in this encounter Additional Health Concerns Assessment Noted Time PHQ-9 Depression Total Score: 16 024 10:59 AM EDT documented as of this encounter Care Teams Policy Issue Clerk Relationship Specialty Start Date End Date Sesar Pereyra MD [address] [place] [address] PCP - General Internal Medicine 03/01/21 [facility] 03/22/24 documented as of this encounter
--- OUTSIDE RECORDS SUMMARY | 2024-07-05 11:07 | XMS_ITS | Encounter Summary ---
Author Organization [facility] Address [address] [place] [address] Care Team Providers Care Food Beverage Attendant Name Role Phone Yolande Nicholas DO Primary Care Pro vider Unavailable Anuj Priest DO Primary Care Provider [facility], Pcp Primary Care Provider Unavailabl e Reason for Visit * Reason Onset Date Comments Faxed Order 03/29/2020 Encounter Details Date Type Department Care Team Description 03/29/2020 Telephone Adult [address] [address] Yolande Nicholas DO Faxed Order Social History [...] TO BE SIGN AND FAX BACK TO [phone]. documented in this encounter Plan of Treatment Not on file documented as of this encounter Visit Diagnoses Not on filedocumented in this encounter Care Teams Food Beverage Attendant Relationship Specialty Start Date End Date Yolande Nicholas DO PCP - General Internal Medicine 12/03/18 10/08/20 Anuj Priest DO PCP - General Internal Medicine 10/09/20 2 [facility], Pcp PCP - General Internal Medicine 06/17/21 documented as of this encounter
--- OUTSIDE RECORDS SUMMARY | 2024-07-05 11:07 | XMS_ITS | Encounter Summary ---
Author Organization [facility] Address [address] [place] [address] Care Team Providers Care Gut Carrier Name Role Phone Yolande Nicholas DO Primary Care Pro vider Unavailable Anuj Priest DO Primary Care Provider Judy álvarez [facility], Pcp Primary Care Provider Unavailabl e Encounter Details Date Type Department Care Team Description 05/04/2020 Ambulatory Care Nurse Report Medical Records [address] [place] [address] Dhruv Garcia MD Social History Tobacco Use [...] on filedocumented in this encounter Care Teams Gut Carrier Relationship Specialty Start Date End Date Yolande Nicholas DO PCP - General Internal Medicine 12/03/18 10/08/20 Anuj Priest DO PCP - General Internal Medicine 10/09/20 Molly Gardner, Pcp PCP - General Internal Medicine 06/17/21 documented as of this encounter
--- OUTSIDE RECORDS SUMMARY | 2024-07-05 11:07 | XMS_ITS | Encounter Summary ---
Author Organization [employer] Address [address] [place] [address] Care Team Providers Care Coal Chute Worker Name Role Phone Yolande Nicholas DO Primary Care Pro vider Unavailable Anuj Priest DO Primary Care Provider Judy Gardner, Pcp Primary Care Provider Unavailabl e Encounter Details Date Type Department Care Team Description 03/14/2019 Release of Information Medical Records [address] [place] [address] Abstract, Provider Social History Tobacco Use Types [...] on filedocumented in this encounter Care Teams Coal Chute Worker Relationship Specialty Start Date End Date Yolande Nicholas DO PCP - General Internal Medicine 12/03/18 10/08/20 Anuj Priest DO PCP - General Internal Medicine 10/09/20 2 Jj, Pcp PCP - General Internal Medicine 06/17/21 documented as of this encounter
--- OUTSIDE RECORDS SUMMARY | 2024-07-05 11:07 | XMS_ITS | Encounter Summary ---
Author Organization [employer] [facility] Address [address] [place] [address] Care Team Providers Care Manual Control Auger Press Operator Name Role Phone Ghassan Burciaga MD Primary Care Provider Unavail able Pierre Arevalo MD Primary Care Provider Judy vailable Gerson Dawson MD Primary Care Provider Unavail able [facility], Pcp Primary Care Provider Unavailabl Coleman Sampson MD Primary Care Provider Unavaila Ayo Demarco MD Primary Care Provider [phone] Annalee Jones MD Primary Care Provider Un available Pascual Nicholasabela DO Primary Care Pro vider Unavailable Anuj Priest DO Primary Care Provider Judy vailable [facility], Pcp Primary Care Provider Unavailabl e Encounter Details Date Type Department Care Team Description 10/12/2009 Controlled Substance Contract with [facility] Medical Records [address] [place] [address] Abstract, Provider Social History Tobacco Use Types [...] on filedocumented in this encounter Care Teams Manual Control Auger Press Operator Relationship Specialty Start Date End Date Ghassan Burciaga MD PCP - General 07/24/00 05/06/13 Pierre Arevalo MD PCP - General Internal Medicine 05/07/13 4 Gerson Dawson MD PCP - General Internal Medicine 01/30/14 03/20/14 [facility], Pcp PCP - General Internal Medicine 03/21/14 05/06/14 Coleman Mccarthy MD PCP - General Internal Medicine 05/07/14 07/18/16 Ayo Carpio MD [address] [place] [address] PCP - General Internal Medicine 07/19/16 01/05/17 Annalee Jones MD [address] [place] [address] PCP - General Internal Medicine 01/06/17 12/02/18 Yolande Nicholas DO [address] [place] [address] PCP - General Internal Medicine 12/03/18 10/08/20 Anuj Priest DO [address] [place] [address] PCP - General Internal Medicine 10/09/20 06/16/21 [facility], Pcp PCP - General Internal Medicine 06/17/21 documented as of this encounter
--- OUTSIDE RECORDS SUMMARY | 2024-07-05 11:07 | XMS_ITS | Encounter Summary ---
Author Organization [facility] Address [address] [place] [address] Care Team Providers Care Packer Operator Automatic Name Role Phone Yolande Nicholas DO Primary Care Pro vider Unavailable Anuj Priest DO Primary Care Provider [facility], Pcp [facility] Encounter Details Date Type Department Care Team Description 04/04/2020 Pt. Non Urgent Medic al Question Adult Medicine [address] [address] Yolande Nicholas DO Social History Tobacco Use [...] 04/04/2020 12:08 PM EST Subject: erictile disfuction [id number] 30ct. documented in this encounter Plan of Treatment Not on file documented as of this encounter Visit Diagnoses Not on filedocumented in this encounter Care Teams Packer Operator Automatic Relationship Specialty Start Date End Date Yolande Nicholas DO PCP - General Internal Medicine 12/03/18 10/08/20 Anuj Priest DO PCP - General Internal Medicine 10/09/20 2 [facility], Pcp PCP - General Internal Medicine 06/17/21 documented as of this encounter
--- OUTSIDE RECORDS SUMMARY | 2024-07-05 11:07 | XMS_ITS | Encounter Summary ---
Author Organization [employer] Address [address] [facility] 7t [place] [address] Care Team Providers Care Consumer Insights Intern Name Role Phone Sesar Pereyra MD Primary Care Provider [phone]- [phone] Reason for Visit * Reason Onset Date Comments Lab Orders 05/30/2024 Referral 05/30/2024 Encounter Details Date Type Department Care Team (Late st Contact Info) Description 05/30/2024 Telephone [facility] MEDICINE [address] [place] [address] Sesar Pereyra MD [address] [place] [address] Lab Orders; Referral Social History Tobacco Use [...] Description 09/11/2024 10:30 AM EDT Office Visit [facility] MED & PEDS [address] [place] [address] Sesar Pereyra MD [address] [place] [address] documented as of this encounter Visit Diagnoses Not on filedocumented in this encounter Additional Health Concerns Assessment Noted Time PHQ-9 Depression Total Score: 16 024 10:59 AM EDT documented as of this encounter Care Teams Consumer Insights Intern Relationship Specialty Start Date End Date Sesar Pereyra MD [address] [place] [address] PCP - General Internal Medicine 03/01/21 [facility] 03/22/24 documented as of this encounter
--- OUTSIDE RECORDS SUMMARY | 2024-07-05 11:07 | XMS_ITS | Encounter Summary ---
Author Organization [employer] Address [address] [facility] 7 [place] [address] Care Team Providers Care Software Sales Executive Name Role Phone Sesar Pereyra MD Primary Care Provider [phone]- [phone] Reason for Visit * Reason Comments Med Refill Encounter Details Date Type Department Care Team ([facility] Contact Info) Description 06/10/2022 Refill [facility] MED & PEDS [address] [place] [address] Sesar Pereyra MD [address] [place] [address] Primary insomnia Social History Tobacco Use Types [...] Upcoming Encounters Date Type Department Care Team ([facility] Contact Info) Description 09/11/2024 10:30 AM EDT Office Visit [facility] MED & PEDS [address] [place] [address] Sesar Pereyra MD [address] [place] [address] documented as of this encounter Visit Diagnoses Diagnosis Primary insomnia Persistent disorder of initiating or maintaining sleep documented in this encounter Care Teams Software Sales Executive Relationship Specialty Start Date End Date Sesar Pereyra MD [address] [place] [address] PCP - General Internal Medicine 03/01/21 [facility] 03/22/24 documented as of this encounter
== END 2024-07-05 10:47 | disposition home or self-care (01) ==
PROVIDERS: PCP Internal Medicine; Visit Provider Physician Assistant
DX: M25.512 Pain in left shoulder (principal); S43.005A Unspecified dislocation of left shoulder joint, initial encounter; S42.309A Unspecified fracture of shaft of humerus, unspecified arm, initial encounter for closed fracture; S42.102A Fracture of unspecified part of scapula, left shoulder, initial encounter for closed fracture
CPT/HCPCS: 99024

== ENCOUNTER → 2024-07-05 09:58 | Outpatient (BNV) | payer MEDICARE, MEDICAID, SELFPAY | PROVIDERS: Visit Provider Radiology Diagnostic Radiology | DX: S42.142A Displaced fracture of glenoid cavity of scapula, left shoulder, initial encounter for closed fracture (principal) | CPT/HCPCS: 73030 ==

== ENCOUNTER 2024-07-11 10:44 | Inpatient (IN) | payer MEDICARE, MEDICAID, SELFPAY ==
[2024-07-11] VITALS (16 sets, daily range): BP systolic 103–184; BP diastolic 41–89; PULSE 64–90; RESP 16–26; TEMP 36.8–38.4; O2SAT 80–97; BMI 33.8; BMI 34.0
--- NOTE | ~2024-07-11 | XR_ITS ---
EXAMINATION: XR CHEST CLINICAL INFORMATION: Hypoxia COMPARISON: 03/12/2024. CT chest 03/18/2024. TECHNIQUE: Frontal view of the chest was obtained. FINDINGS: There is cardiomegaly. The hilar and mediastinal contours are normal. Lungs demonstrate patchy opacities in both lower lungs. No pneumothorax or effusion. No focal osseous or soft tissue abnormality. XR/XR chest 1V IMPRESSION: 1. Patchy bibasilar pneumonia. 2. Cardiomegaly. Electronically signed by: Jaquan Guillen MD 07/11/2024 12:11 PM EDT
--- NOTE | 2024-07-11 11:01 | ECG_ITS ---
Test Reason : sob Blood Pressure : */* mmHG Vent. 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
[2024-07-11] MEDS: Albuterol Sulfate 5 MG, Albuterol/Iprat 2.5/0.5MG 3 ML 3 ML INHALE (11:09)
--- NOTE | 2024-07-11 11:11 | ED_ITS ---
HPI - General Adult General Chief complaint: Dyspnea Stated complaint: CHILLS,SOB PER EMS Time Seen by Provider: 07/11/24 10:57 History of Present Illness ED Provider: Dr. Rebolledo HPI narrative: 79 y/o M patient; PMH CKD, hx renal cell carcinoma, HTN, PVD, atrial fibrillation on Eliquis, HFpEF (ECHO 2021, LVEF 55 - 60%), CAD, (cardiac cath 2022 - 65% proximal LAD stenosis s/p PCI, 100% ostial diagonal artery stenosis, 50% stenosis in the mid-RCA and right PDA), ascending aortic aneurysm, mood disorder, HLD, BPH; presents from home with EMS for hypoxia associated with chills, cough/congestion, and shortness of breath. Of note patient had a left- shoulder surgical repair approx 2 weeks ago. He otherwise denies: chest pain, syncope, nausea/vomiting, abdominal pain. Related Data Home Medications ?Medication ?Instructions ?Recorded ?Confirmed docusate sodium 100 mg capsule 100 mg PO DAILY 08/17/21 06/20/24 apixaban 5 mg tablet (Eliquis) 5 mg PO BID 01/27/22 06/20/24 atorvastatin 80 mg tablet 80 mg PO DAILY 01/27/22 06/20/24 sertraline 50 mg tablet 50 mg PO DAILY 07/06/22 06/20/24 quetiapine 25 mg tablet 25 mg PO BID 12/28/22 06/20/24 tamsulosin 0.4 mg capsule 0.4 mg PO DAILY 03/07/23 06/20/24 cilostazol 50 mg tablet 50 mg PO BID 03/27/23 06/20/24 clonazepam 0.5 mg tablet 0.5 mg PO BID Anxiety 11/15/23 06/20/24 dextroamphetamine-amphetamine 7.5 1 tab PO DAILY 03/18/24 06/20/24 mg tablet melatonin 3 mg capsule 3 mg PO BEDTIME PRN Sleep 04/12/24 06/20/24 metoprolol tartrate 25 mg tablet 25 mg PO DAILY 06/20/24 06/20/24 Previous Rx's ?Medication ?Instructions ?Recorded dronedarone 400 mg tablet (Multaq) 400 mg PO BID #180 tabs 03/21/24 furosemide 40 mg tablet 40 mg PO DAILY #90 tabs 04/16/24 hydralazine 25 mg tablet 25 mg PO BID 30 days #60 tabs 04/19/24 gabapentin 100 mg capsule 100 - 300 mg (1 - 3 x 100 mg) PO 05/06/24 BEDTIME Pain (Scale Score 1-3) 30 days #90 caps polyethylene glycol 3350 17 gram 17 g PO BEDTIME 30 days #30 ea 06/23/24 oral powder packet oxycodone 5 mg tablet 5 mg PO Q8H PRN pain #15 tabs 07/09/24 Allergies Allergy/AdvReac Type Severity Reaction Status Date / Time No Known Allergies Allergy Verified 07/11/24 10:57 [No Known Allergies*] Review of Systems 2 Review of Systems: Yes all other systems are reviewed and are negative [facility] Past Medical History Attestation statement: The following information was validated with the patient. Source: old records reviewed Medical History Paroxysmal atrial flutter Preoperative cardiovascular examination Coronary artery disease Hypersomnia Snoring Neuropathy Atherosclerotic cardiovascular disease History of alcohol abuse History of COVID-19 On beta jose at home COPD (chronic obstructive pulmonary disease) On anticoagulant therapy History of atrial fibrillation PVD (peripheral vascular disease) Renal cell carcinoma Hypertension Depression Anxiety Diverticulitis Surgical History History of intestinal surgery History of kidney surgery H/O cardiac catheterization History of colectomy S/P femoral-femoral bypass surgery Social History Social History Household Members: Significant Other Housing: House Are you a primary career based intervention coordinator to a significant other at home: No Do you presently have visiting nurse or other home services: No Alcohol intake: never Patient Tobacco Use Status: Former Tobacco user Tobacco use type: Cigarette Smoked in Last 30 Days: No Second Hand Smoke Exposure: No Use of substances other than those prescribed or required for medical reasons: No Substance Use Type: Marijuana Advance Directives: Yes Advance Directives on File: Yes Advance Directives Date on File: 06/09/21 service: Yes Current occupational status: retired Current occupation: right hand dominant Physical Exam ED Vital Signs: Vital Signs - 24 hr 07/11/24 10:48 07/11/24 11:00 07/11/24 11:09 Temperature 99.5 F 99.5 F Pulse Rate 86 87 Respiratory Rate 26 H 21 H 26 H Blood Pressure 116/89 Pulse Oximetry 92 92 Oxygen Delivery Method Large Bore Nasal Cannula High Flow Nasal Cannula Oxygen Flow Rate 50 Fraction of Inspired Oxygen 40 07/11/24 11:09 Temperature Pulse Rate 86 Respiratory Rate 26 H Blood Pressure Pulse Oximetry Oxygen Delivery Method Oxygen Flow Rate Fraction of Inspired Oxygen BMI result Body Mass Index 33.8 Patient is afebrile, mildly tachypnic, and requiring supplemental oxygen support. Const General: cooperative HENMT Head: Yes normal to inspection and Yes atraumatic Eyes General: appearance normal, both eyes and all related structures Pupils: Equal, round and reactive pupils present EOM: EOMs intact bilaterally Neck Neck: Yes normal visual inspection, Yes full ROM, Yes supple and No tender Chest Chest palpation & inspection: normal inspection of the chest and normal palpation of entire chest wall Resp Other: Tachypnea, able to speak in full sentences Effort & Inspection: no cough Auscultation: clear to auscultation bilaterally Cardio Rate: regular rate Rhythm: regular rhythm Peripheral pulses: Peripheral pulses 2+ throughout GI Inspection: Yes normal to inspection, No Abdominal wall edema and No distended Palpation (GI): Soft to palpation, not firm, nontender, no guarding and not rigid Auscultation: normal bowel sounds Back/Spine/Pelvis Back: No back tenderness Neuro Cranial nerves: Yes Equal, round and reactive pupils present Extrem Other: 3+ bilateral lower extremity pitting edema Course Course Course Narrative: Patient seen immediately due to oxygen requirements. Ordered for EKG, CXR, respiratory swab, labs including lactic acid and blood cultures. Labs reviewed. Leukocytosis 18.1. VBG reassuring with pCO2 41, HCO3 26. LA 2.3. COVID/Flu/RSV negative. Patient was placed on ED Bronchodilator protocol. He is requiring high flow nasal cannula at 40%. CXR with evidence of multifocal pneumonia. Started on Ceftriaxone and Azithromycin. Plan: Admit to hospitalist Condition: Stable Medications Administered Discontinued Medications Generic Name Dose Route Start Last Admin Trade Name Freq PRN Reason Stop Dose Admin Ceftriaxone Sodium 1 gm 07/11/24 12:07 07/11/24 12:13 Ceftriaxone Sodium 1 Gm Vial IVPUSH 07/11/24 12:08 1 gm ONCE ONE Administration Albuterol Sulfate 5 mg/ 0 mg 07/11/24 11:04 07/11/24 11:09 Albuterol/Ipratropium 3 ml INHALE 07/11/24 11:05 1 each ONCE ONE Administration Medical Decision Making Lab Data 07/11/24 11:31 07/11/24 11:31 Labs: Lab Results 07/11/24 07/11/24 07/11/24 Range/Units 11:31 11:38 11:39 WBC 18.1 H (4.8-10.8) X10*3/uL RBC 4.96 (4.60-5.80) X10*6/uL Hgb 14.9 (14.0-18.0) g/dl Hct 45.6 (42.0-52.0) % MCV 91.9 (80.0-98.0) fL MCH 30.0 (27.0-33.0) pg MCHC 32.7 (31.0-36.0) g/dl RDW 15.0 (11.0-16.0) % Plt Count 397 D (160-400) X10*3/uL MPV 9.2 L (9.4-12.4) fL Immature Gran % (Auto) 0.3 (0.0-0.4) % Neut % (Auto) 91.1 H (45-73) % Lymph % (Auto) 3.7 L (20-40) % [place] % (Auto) 4.6 (2-11) % Eos % (Auto) 0.1 (0-4) % Baso % (Auto) 0.2 (0-2) % Lymph # (Auto) 0.7 L (1.2-4.9) X10*3/uL [place] # (Auto) 0.8 (0.1-1.2) X10*3/uL Eos # (Auto) 0.0 (0.0-0.4) X10*3/uL Baso # (Auto) 0.0 (0.0-0.2) X10*3/uL Abs Immat Gran (auto) 0.05 H (0.00-0.03) X10*3/uL Absolute Neuts (auto) 16.5 H (2.0-8.3) x10*3/uL Absolute Nucleated RBC 0.000 (0.0-0.012) X10*3/uL Nucleated RBC % (auto) 0.0 (0.0-0.2) /100WBC Smear Tech's Comments VERIFIED Hold Blue Top SEE NOTE VBG pH 7.40 (7.32-7.43) VBG pCO2 41 mmHg VBG pO2 28 mmHg VBG HCO3 26 (22-26) mmol/L VBG O2 Saturation 39.0 % VBG Base Excess 1.4 mmol/L Sodium 140 (135-145) mmol/L Potassium 4.1 (3.3-5.1) mmol/L Chloride 107 (96-108) mmol/L Carbon Dioxide 25 (22-29) mmol/L Anion Gap 12 (12-20) BUN 20 H (9-16) mg/dL Creatinine 1.17 (0.5-1.4) mg/dL Estim Creat Clear Calc 68.6 Estimated GFR > 60 Random Glucose 109 (60-115) mg/dL Lactic Acid 2.3 H* (0.5-2.0) mmol/L Calcium 9.3 (8.4-10.2) mg/dL Total Bilirubin 0.5 (0.0-1.0) mg/dL Direct Bilirubin 0.2 (0.0-0.5) mg/dL AST 22 (5-37) U/L ALT 25 (0-40) U/L Alkaline Phosphatase 122 H (39-117) U/L Troponin I High Sens 12.1 D (<3.5-35.0) ng/L B-Natriuretic Peptide 204 H (<100) pg/mL Total Protein 7.2 (6.5-8.0) g/dL Albumin 3.8 (3.5-5.0) g/dL Lipase 16 (8-78) U/L Influenza Type A (PCR) NEGATIVE (Negative) Influenza Type B (PCR) NEGATIVE (Negative) RSV RNA Qual (PCR) NEGATIVE (Negative) SARS-CoV-2 RNA (RT-PCR) NEGATIVE (Negative) Independent Interpretation I performed an independent interpretation of an: EKG Interpretation: NSR 84BPM with normal intervals, without ischemic changes Radiology Impression Discussion of test interpretation with radiology: I have reviewed the radiologist's reading. Radiologist Impression: EXAMINATION: XR CHEST CLINICAL INFORMATION: Hypoxia COMPARISON: 03/12/2024. CT chest 03/18/2024. TECHNIQUE: Frontal view of the chest was obtained. FINDINGS: There is cardiomegaly. The hilar and mediastinal contours are normal. Lungs demonstrate patchy opacities in both lower lungs. No pneumothorax or effusion. No focal osseous or soft tissue abnormality. XR/XR chest 1V IMPRESSION: 1. Patchy bibasilar pneumonia. 2. Cardiomegaly. Electronically signed by: Jaquan Guillen MD 07/11/2024 12:11 PM EDT RP Discharge Plan Discharge Clinical Impression: Multifocal pneumonia, Acute hypoxic respiratory failure Patient Disposition: Admitted As Inpatient Print Language: Belgian
[2024-07-11 11:41] LABS: VBG Base Excess 1.4 mmol/L; VBG HCO3 26 mmol/L (22-26); VBG pCO2 41 mmHg; VBG pO2 28 mmHg
[2024-07-11 11:42] LABS: Basophils Percent Auto 0.2 % (0-2); Eosinophils Percent Auto 0.1 % (0-4); Hematocrit 45.6 % (42.0-52.0); Hemoglobin 14.9 g/dl (14.0-18.0); Imm Gran Abs Auto 0.05 X10*3/uL (0.00-0.03); Imm Gran Pct Auto 0.3 % (0.0-0.4); Lymphocytes Absolute Auto 0.7 X10*3/uL (1.2-4.9); Lymphocytes Percent Auto 3.7 % (20-40); MANUAL DIFF FLAG SCAN; Mean Corpuscular HGB Conc 32.7 g/dl (31.0-36.0); Mean Corpuscular Volume 91.9 fL (80.0-98.0); Mean Platelet Volume 9.2 fL (9.4-12.4); Monocytes Absolute Auto 0.8 X10*3/uL (0.1-1.2); Monocytes Percent Auto 4.6 % (2-11); Neutrophils Absolute Auto 16.5 x10*3/uL (2.0-8.3); Neutrophils Percent Auto 91.1 % (45-73); Platelet Count 397 X10*3/uL (160-400); Red Blood Count 4.96 X10*6/uL (4.60-5.80); SCAN SMEAR FLAG 1; White Blood Count 18.1 X10*3/uL (4.8-10.8)
[2024-07-11 11:44] LABS: Venous Blood Gas Refer to POC result
[2024-07-11 11:59] LABS: Alanine Aminotransferase 25 U/L (0-40); Albumin Level 3.8 g/dL (3.5-5.0); Alkaline Phosphatase 122 U/L (39-117); Anion Gap 12 (12-20); Aspartate Amino Transferase 22 U/L (5-37); Bilirubin Direct 0.2 mg/dL (0.0-0.5); Bilirubin Total 0.5 mg/dL (0.0-1.0); Blood Urea Nitrogen 20 mg/dL (9-16); Calcium 9.3 mg/dL (8.4-10.2); Carbon Dioxide 25 mmol/L (22-29); Chloride 107 mmol/L (96-108); Creatinine Clr Calc Pharmacy 68.6; Estimated Glomerular Filt Rate > 60; Glucose Random 109 mg/dL (60-115); Lipase 16 U/L (8-78); Potassium 4.1 mmol/L (3.3-5.1); Sodium 140 mmol/L (135-145); Total Protein 7.2 g/dL (6.5-8.0)
[2024-07-11 12:01] LABS: SLIDE REVIEW VERIFIED
[2024-07-11 12:04] LABS: B Type Natriuretic Peptide 204 pg/mL (<100)
[2024-07-11 12:06] LABS: Troponin-I High Sensitivity 12.1 ng/L (<3.5-35.0)
[2024-07-11] MEDS: cefTRIAXone sodium 1 GM VIAL IVPUSH (12:13)
[2024-07-11 12:15] LABS: Lactic Acid 2.3 mmol/L (0.5-2.0)
--- NOTE | 2024-07-11 12:17 | PC.NURSE ---
Provider Dr. Rebolledo called sepsis alert this RN clarified if she wanted any fluids at this time or just antx, prvider verbalized at this time just antibiotics that he is not meeting criteria for IVF at this time.
[2024-07-11 12:19] LABS: Influenza A PCR NEGATIVE (Negative); Influenza B PCR NEGATIVE (Negative); Resp Syncy Virus RNA Qual PCR NEGATIVE (Negative); SARS COV2 PCR INHOUSE NEGATIVE (Negative)
[2024-07-11] MEDS: Azithromycin 500 MG in 0.9 % Sodium Chloride 250 ML 125 MG IV (12:34)
--- NOTE | 2024-07-11 12:39 | P.HPHOSP_ITS ---
History of Present Illness Date of Service: 07/11/24 Attending physician on admission: Rianna Brown Chief Complaint: SOB Pt is a 79-year-old male with a PMH significant for?CAD, paroxysmal AFib/flutter Eliquis, CKD 3, HLD, HTN, BPH, and mood disorder who presents to the ED with SOB, difficulty breathing, and generalized weakness since this morning. Pt reports was in his normal state of health yesterday, but when he awoke this morning everything hurt and he felt generally unwell. Also been experiencing nonproductive cough, and chills. No chest pain/ pressure, palpitations. Denies nausea, vomiting, abdominal pain. Of note, pt was recently admitted to the hospital from 06/19-06/25 for significant left glenohumeral joint with impaction fracture requiring surgical repair on 06/21. PT recommended STR but pt declined and went home with services. Pt reports has been walking outside daily for 5- 10 minutes. In the ED pt was Tachypneic up to 26 low-grade fever of 99.5 and requiring 10L O2 to sat at 92%. Labs were significant for 18.1 and lactic acid 2.3. Stable H&H. No significant electrolyte abnormalities. Creatinine mildly elevated at 1.17 ( up from 0.95 on 06/22), troponin WNL at 12.1. BNP elevated at 204, around baseline. Tested negative for flu, COVID, RSV. CXR showed Patchy bibasilar pneumonia and cardiomegaly. EKG demonstrated Normal sinus rhythm without evidence of significant ST elevations depressions. Pt was treated with DuoNebs, ceftriaxone, and azithromycin. Pt will be admitted to the hospital for treatment and further evaluation acute hypoxic respiratory failure in the setting of multifocal pneumonia with sepsis. Review of Systems 2 Review of Systems: Negative except for that which is stated in the HPI. [facility] Medical History Paroxysmal atrial flutter Preoperative cardiovascular examination Coronary artery disease Hypersomnia Snoring Neuropathy Atherosclerotic cardiovascular disease History of alcohol abuse History of COVID-19 On beta jose at home COPD (chronic obstructive pulmonary disease) On anticoagulant therapy History of atrial fibrillation PVD (peripheral vascular disease) Renal cell carcinoma Hypertension Depression Anxiety Diverticulitis Surgical History History of intestinal surgery History of kidney surgery H/O cardiac catheterization History of colectomy S/P femoral-femoral bypass surgery Social History Household Members: Significant Other Housing: House Are you a primary primary care nurse practitioner to a significant other at home: No Do you presently have visiting nurse or other home services: No Alcohol intake: never Patient Tobacco Use Status: Former Tobacco user Tobacco use type: Cigarette Smoked in Last 30 Days: No Second Hand Smoke Exposure: No Use of substances other than those prescribed or required for medical reasons: No Substance Use Type: Marijuana Advance Directives: Yes Advance Directives on File: Yes Advance Directives Date on File: 06/09/21 service: Yes Current occupational status: retired Current occupation: right hand dominant Meds Allergies Allergy/AdvReac Type Severity Reaction Status Date / Time No Known Allergies Allergy Verified 07/11/24 10:57 [No Known Allergies*] Active Medications: Current Medications Azithromycin 500 mg/ Sodium (Chloride) 250 mls @ 125 mls/hr IV ONCE ONE Stop: 07/11/24 14:06 Last Admin: 07/11/24 12:34 Dose: 125 mls/hr Home Medications ?Medication ?Instructions ?Recorded ?Confirmed ?Last Taken ?Type docusate sodium 100 mg capsule 100 mg PO DAILY 08/17/21 07/11/24 07/11/24 History apixaban 5 mg tablet (Eliquis) 5 mg PO BID 01/27/22 07/11/24 07/11/24 History atorvastatin 80 mg tablet 80 mg PO DAILY 01/27/22 07/11/24 07/11/24 History sertraline 50 mg tablet 50 mg PO DAILY 07/06/22 07/11/24 07/11/24 History quetiapine 25 mg tablet 25 mg PO BID 12/28/22 07/11/24 07/11/24 History tamsulosin 0.4 mg capsule 0.4 mg PO DAILY 03/07/23 07/11/24 07/11/24 History cilostazol 50 mg tablet 50 mg PO BID 03/27/23 07/11/24 07/11/24 History clonazepam 0.5 mg tablet 0.5 mg PO BID Anxiety 11/15/23 07/11/24 07/11/24 History dextroamphetamine-amphetamine 7.5 1 tab PO DAILY 03/18/24 07/11/24 07/11/24 History mg tablet melatonin 3 mg capsule 3 mg PO BEDTIME PRN Sleep 04/12/24 07/11/24 Unknown History aspirin 81 mg tablet,delayed 81 mg PO DAILY 07/11/24 07/11/24 07/11/24 History release metoprolol tartrate 25 mg tablet 12.5 mg PO BID 07/11/24 07/11/24 07/11/24 History Physical Exam 2 Vital Signs and Narrative: Vital Signs: Last Vital Signs Temp 99.5 F 07/11/24 11:00 Pulse 79 07/11/24 12:37 Resp 20 07/11/24 12:37 BP 124/51 L 07/11/24 12:37 Pulse Ox 92 07/11/24 12:37 O2 Del Method High Flow Nasal C annula 07/11/24 12:37 O2 Flow Rate 50 07/11/24 12:37 FiO2 40 07/11/24 12:37 Oxygen Flow Rate 10 07/11/24 10:48 BMI result Body Mass Index 33.8 General: AOx3, no acute distress Resp: Diffuse expiratory rhonchi. High-flow on. Capable of speaking in full sentences. No significant respiratory distress. CVS: S1, S2, RRR GI: +BS, NT, no distention Skin: Warm, dry Neuro: Cranial nerves II-XII grossly intact bilaterally. Motor grossly intact bilaterally Extremities: 1-2+ pitting edema, right slightly worse than left Psych: Appropriate affect Results Labs 07/11/24 11:31 07/11/24 11:31 Labs: Laboratory Results - last 24 hr 07/11/24 07/11/24 07/11/24 11:31 11:38 11:39 MCV 91.9 MCH 30.0 MCHC 32.7 RDW 15.0 Plt Count 397 D MPV 9.2 L Immature Gran % (Auto) 0.3 Neut % (Auto) 91.1 H Lymph % (Auto) 3.7 L [place] % (Auto) 4.6 Eos % (Auto) 0.1 Baso % (Auto) 0.2 Lymph # (Auto) 0.7 L [place] # (Auto) 0.8 Eos # (Auto) 0.0 Baso # (Auto) 0.0 Abs Immat Gran (auto) 0.05 H Absolute Neuts (auto) 16.5 H Absolute Nucleated RBC 0.000 Nucleated RBC % (auto) 0.0 Smear Tech's Comments VERIFIED Hold Blue Top SEE NOTE VBG pH 7.40 VBG pCO2 41 VBG pO2 28 VBG HCO3 26 VBG O2 Saturation 39.0 VBG Base Excess 1.4 Anion Gap 12 Estim Creat Clear Calc 68.6 Estimated GFR > 60 Random Glucose 109 Lactic Acid 2.3 H* Calcium 9.3 Total Bilirubin 0.5 Direct Bilirubin 0.2 AST 22 ALT 25 Alkaline Phosphatase 122 H B-Natriuretic Peptide 204 H Total Protein 7.2 Albumin 3.8 Lipase 16 Influenza Type A (PCR) NEGATIVE Influenza Type B (PCR) NEGATIVE RSV RNA Qual (PCR) NEGATIVE SARS-CoV-2 RNA (RT-PCR) NEGATIVE Imaging Radiologist's Impressions: Impressions Chest X-Ray 07/11/24 11:01 IMPRESSION: 1. Patchy bibasilar pneumonia. 2. Cardiomegaly. Electronically signed by: Jaquan Guillen MD 07/11/2024 12:11 PM EDT RP Assessment and Plan (1) Acute hypoxic respiratory failure: Status: Acute (2) Multifocal pneumonia: Status: Acute Plan Pt is a 79-year-old male with a PMH significant for?CAD, paroxysmal AFib/flutter Eliquis, CKD 3, HLD, HTN, BPH, and mood disorder who presents to the ED with SOB, difficulty breathing, and generalized weakness since this morning. Pt will be admitted to the hospital for treatment and further evaluation acute hypoxic respiratory failure in the setting of multifocal pneumonia with sepsis. Acute hypoxic respiratory failure in the setting of multifocal pneumonia with sepsis Currently on high-flow O2 sat at 92%, CXR showing multifocal pneumonia, pt with weakness, myalgia, SOB, cough Meets sepsis criteria with tachypnea and leukocytosis; lactic acid 2.3 Will treat with ceftriaxone and azithromycin, started 07/11/2024 Duonebs prn, continue High-flow, wean as tolerated Follow lactic acid, blood cultures PT consult Recent dislocation of left glenohumeral joint with impaction fracture of the humerus, scapula, and coracoid process S/p repair on 06/21 Continue sling, home analgesics Paroxysmal AFib Continue Multaq, metoprolol and Eliquis CAD Continue statin and aspirin HTN Continue hydralazine BPH Continue tamsulosin Mood disorder Continue home mood stabilizers Full Code Attending:?Dr. Brown DVT Prophylaxis: On Eliquis Pt will require a hospitalization of at least two nights for treatment of?acute hypoxic respiratory failure in the setting of multifocal pneumonia with sepsis. Pt will require hospital level care for administration of IV antibiotics, breathing treatments, supplemental oxygen, and close monitoring of respiratory status. Quality Stroke Does the patient have a stroke diagnosis?: No VTE Prior VTE?: No VTE Risk Level:: Medical - moderate - high VTE Device Contraindication: Treatment Not Indicated VTE Drug Contraindication: N/A - Med Ordered
--- NOTE | 2024-07-11 13:19 | PHA.MEDREC ---
Addendum entered by Shahid Narvaez [facility] 07/11/24 13:41: med rec checked by [facility] Original Note: Pharmacy Consult ? Medication Reconciliation Pharmacy has completed the medication reconciliation. Spoke to patient to confirm med list. Patient states he was just discharged from [facility] on 06/25/24 and there hasn't been any changes to his medication. Utilized claim and discharge packet from 06/25/24 to confirm med list.
[2024-07-11 13:45] LABS: Reflex Lactate? Lactic Acid Added
[2024-07-11 14:21] LABS: ~Lactic Acid-LAB USE ONLY 3.4 mmol/L (0.5-2.0)
--- OUTSIDE RECORDS SUMMARY | 2024-07-11 14:35 | XMS_ITS | Encounter Summary ---
Author Organization [facility] Address [address] [place] [address] Care Team Providers Care Chief Of Anesthesiology Name Role Phone Yolande Nicholas DO Primary Care Pro vider Unavailable Anuj Priest DO Primary Care Provider [facility], Pcp Primary Care Provider Unavailabl e Reason for Visit * Reason Onset Date Comments [facility] Call 12/28/2019 Encounter Details Date Type Department Care Team Description 12/28/2019 Telephone Adult Urgent Care - [address] [address] Yolande Nicholas DO [facility] Call Social History [...] [facility] CALL Which [facility] office is calling? [facility] Full name of caller: Bev The [...] filedocumented in this encounter Care Teams Chief Of Anesthesiology Relationship Specialty Start Date End Date Yolande Nicholas DO PCP - General Internal Medicine 12/03/18 10/08/20 Anuj Priest DO PCP - General Internal Medicine 10/09/[address] [place] [address], Pcp PCP - General Internal Medicine 06/17/21 documented as of this encounter
--- OUTSIDE RECORDS SUMMARY | 2024-07-11 14:35 | XMS_ITS | Encounter Summary ---
Author Organization [facility] Address [address] [place] [address] Care Team Providers Care Fine Grade Operator Name Role Phone Yolande Nicholas DO Primary Care Pro vider Unavailable Anuj Priest DO Primary Care Provider Judy Gardner, Pcp Primary Care Provider Unavailabl e Encounter Details Date Type Department Care Team Description 12/19/2019 Hospital Medical Records [address] [place] [address] Cedrick Siddiqui Social History Tobacco Use Types [...] on filedocumented in this encounter Care Teams Fine Grade Operator Relationship Specialty Start Date End Date Yolande Nicholas DO PCP - General Internal Medicine 12/03/18 10/08/20 Anuj Priest DO PCP - General Internal Medicine 10/09/20 2 J[address], Pcp PCP - General Internal Medicine 06/17/21 documented as of this encounter
--- OUTSIDE RECORDS SUMMARY | 2024-07-11 14:35 | XMS_ITS | Clinical Summary ---
Author Organization Unknown Care Team Providers Care Real Estate Associate Attorney Name Role Phone MARCO RAMIREZ, POOJA Unavailable Unavailabl e BARBARA PT, COURTNEY Unavailable Unavailable SHERYL TAXATION ECONOMIST, JANETT Unavailable Unavailable LESLYE RN, DAGOBERTO Unavailable Unavailab abraham CARRION SALES ACCOUNT ASSOCIATE, ANTONIO Unavailable Unavailable READING OT, JOANIE Unavailable Unavailable CHANEY DIRECTOR OF CASEWORK SERVICES, TIA Unavailable Unavailable Payers Payer Name Policy Type Policy Number Effective Date Expira tion Date [facility] [id number] Problems Condition Name Condition Details Condition Category [...] 2023-05 00:00: 00 ATHSCL HEART DISEASE OF [place] CORONARY ARTERY W/O ANG PCTRS Active 05-01 [...] 2023-05 00:00: 00 05-16 23:59 :00 No [id number] PAIN 15 mg EVERY 6 HOURS NEEDED 15 mg EVERY 6 HOURS NEEDED (route: oral) Med Classific ation: Analgesic , Anti-infl ammatory or Antipyret ic clonazepam 0.5 mg tablet 2023-05 00:00: 00 Yes [id number] ANXIETY 0.5 mg 2 TIMES DAILY 0.5 mg 2 TIMES DAILY (route: oral) Med Classific ation: Central Nervous System Agents lisinopril 40 mg tablet 2023-05 00:00: 00 03-21 23:59 :00 No [id number] CAD 40 mg DAILY 40 mg DAILY (route: oral) Med Classific ation: Cardiovas cular Therapy Agents atorvastati n 80 mg tablet 2023-05 00:00: 00 Yes [id number] HYPERTENSIO N 80 mg DAILY 80 mg DAILY (route: oral) Med Classific ation: Cardiovas cular Therapy Agents cilostazol 50 mg tablet 2023-05 00:00: 00 Yes [id number] HYPERTENSIO N 50 mg 2 TIMES DAILY 50 mg 2 TIMES DAILY (route: oral) Med Classific ation: Hematolog ical Agents clopidogrel 75 mg tablet 2023-05 00:00: 00 03-21 23:59 :00 No [id number] CORONARY ARTERY DISEASE 75 mg DAILY 75 mg DAILY (route: oral) Med Classific ation: Hematolog ical Agents Eliquis 5 mg tablet 2023-05 00:00: 00 Yes [id number] ANTI ARRHYTHMIC 5 mg 2 TIMES DAILY 5 mg 2 TIMES DAILY (route: oral) Med Classific ation: Hematolog ical Agents furosemide 40 mg tablet 2023-05 00:00: 00 03-21 23:59 :00 No [id number] BPH 40 mg DAILY 40 mg DAILY (route: oral) Alternate Route: INTRA-MUS CULAR. Med Classific ation: Cardiovas cular Therapy Agents metoprolol tartrate 50 mg tablet 2023-05 00:00: 00 03-22 23:59 :00 No [id number] CAD 50 mg DAILY 50 mg DAILY (route: oral) Med Classific ation: Cardiovas cular Therapy Agents quetiapine 25 mg tablet 2023-05 00:00: 00 Yes [id number] MOOD STABILIZER 25 mg 2 TIMES DAILY 25 mg 2 TIMES DAILY (route: oral) Med Classific ation: Central Nervous System Agents sertraline 50 mg tablet 2023-05 00:00: 00 Yes [id number] MOOD STABILIZER 50 mg DAILY 50 mg DAILY (route: oral) Med Classific ation: Central Nervous System Agents tamsulosin 0.4 mg capsule 2023-05 00:00: 00 Yes [id number] BPH 0.4 mg DAILY 0.4 mg DAILY (route: oral) Med Classific ation: Genitouri nary Therapy docusate sodium 100 mg tablet 2023-05 00:00: 00 Yes [id number] CONSTIPATIO N 100 mg DAILY 100 mg DAILY (route: oral) Med Classific ation: Gastroint estinal Therapy Agents gabapentin 100 mg capsule 2023-05 00:00: 00 Yes [id number] PAIN 1-3 capsule BEDTIME 1-3 capsule BEDTIME (route: oral) Med Classific ation: Central Nervous System Agents metoprolol tartrate 25 mg tablet 2023-05 00:00: 00 03-27 16:09 :43.1 53 No [id number] HYPERTENSIO N 25 mg 2 TIMES DAILY 25 mg 2 TIMES DAILY (route: oral) Med Classific ation: Cardiovas cular Therapy Agents Multaq 400 mg tablet 2023-05 00:00: 00 Yes [id number] ANTIARRHYTH MICHAEL 400 mg 2 TIMES DAILY 400 mg 2 TIMES DAILY (route: oral) Med Classific ation: Cardiovas cular Therapy Agents furosemide 40 mg tablet 2023-05 00:00: 00 Yes [id number] edema 1 tablet DAILY 1 tablet DAILY (route: oral) Med Classific ation: Cardiovas cular Therapy Agents dextroamphe tamine-amph etamine 7.5 mg tablet 2023-05 00:00: 00 Yes [id number] attention 1 tablet DAILY 1 tablet DAILY (route: oral) Med Classific ation: Central Nervous System Agents metoprolol tartrate 25 mg tablet 2023-05 00:00: 00 Yes [id number] heart rate 0.5 tablet 2 TIMES DAILY 0.5 tablet 2 TIMES DAILY (route: oral) Med Classific ation: Cardiovas cular Therapy Agents cephalexin 500 mg capsule 2023-05 00:00: 00 04-10 23:59 :00 No [id number] CELLULITIS LLL 500 mg 4 TIMES DAILY 500 mg 4 TIMES DAILY (route: oral) Med Classific ation: Anti-Infe ctive Agents hydralazine 25 mg tablet 2023-05 00:00: 00 Yes [id number] HTN 25 mg 2 TIMES DAILY 25 mg 2 TIMES DAILY (route: oral) Med Classific ation: Cardiovas cular Therapy Agents Vital Signs Vital Name Observation Time Observation Value Commen ts Temperature 2024-07-10 12:05:00.000 97.8 [degF] Temperature 2024-07-09 15:20:00.000 97.1 [degF] Temperature 2024-07-09 09:42:00.000 97.3 [degF] Temperature 2024-07-05 08:51:00.000 98.3 [degF] Temperature 2024-07-04 12:28:00.000 97.8 [degF] Temperature 2024-07-02 13:17:00.000 98.2 [degF] Temperature 2024-07-01 11:25:00.000 97.5 [degF] Temperature 2024-06-27 17:10:00.000 97.8 [degF] Temperature 2024-06-11 09:50:00.000 97.6 [degF] Temperature 2024-06-04 10:04:00.000 98.2 [degF] Temperature 2024-05-28 09:15:00.000 98.6 [degF] Temperature 2024-05-21 09:14:00.000 98.6 [degF] BMI (%) 2024-06-27 15:50:44.000 30 kg/m2 Height 2024-06-27 15:50:31.000 74 [in_us] Pulse 2024-07-10 12:05:00.000 54 /min Pulse 2024-07-09 15:20:00.000 70 /min Pulse 2024-07-09 09:43:00.000 88 /min Pulse 2024-07-05 08:51:00.000 60 /min Pulse 2024-07-04 12:28:00.000 72 /min Pulse 2024-07-02 13:17:00.000 60 /min Pulse 2024-07-01 11:25:00.000 60 /min Pulse 2024-06-27 17:10:00.000 65 /min Pulse 2024-06-11 09:50:00.000 60 /min Pulse 2024-06-04 10:04:00.000 72 /min Pulse 2024-05-28 09:15:00.000 62 /min Pulse 2024-05-21 09:14:00.000 60 /min O2 Saturation (%) 2024-07-10 12:05:00.000 95 % O2 Saturation (%) 2024-07-09 09:43:00.000 93 % O2 Saturation (%) 2024-07-05 08:51:00.000 93 % O2 Saturation (%) 2024-07-02 13:17:00.000 95 % O2 Saturation (%) 2024-07-01 11:25:00.000 95 % O2 Saturation (%) 2024-06-27 17:10:00.000 96 % O2 Saturation (%) 2024-06-11 09:50:00.000 98 % O2 Saturation (%) 2024-06-04 10:05:00.000 98 % O2 Saturation (%) 2024-05-28 09:16:00.000 99 % O2 Saturation (%) 2024-05-21 09:14:00.000 98 % Respirations 2024-07-10 12:05:00.000 18 /min Respirations 2024-07-09 15:20:00.000 17 /min Respirations 2024-07-09 09:42:00.000 18 /min Respirations 2024-07-05 08:51:00.000 18 /min Respirations 2024-07-04 12:28:00.000 16 /min Respirations 2024-07-02 13:17:00.000 18 /min Respirations 2024-07-01 11:25:00.000 18 /min Respirations 2024-06-27 17:10:00.000 18 /min Respirations 2024-06-11 09:50:00.000 18 /min Respirations 2024-06-04 10:04:00.000 18 /min Respirations 2024-05-28 09:15:00.000 18 /min Respirations 2024-05-21 09:14:00.000 18 /min Weight (lbs) 2024-06-27 15:50:44.000 240 [lb_av] Weight (lbs) 2024-06-11 09:54:00.000 245 [lb_av] Weight (lbs) 2024-05-28 09:23:00.000 245.5 [lb_av] Weight (lbs) 2024-05-21 09:17:00.000 245 [lb_av] Systolic Blood Pressure 2024-07-10 12:05:00.000 144 mm [Hg] Systolic Blood Pressure 2024-07-09 15:20:00.000 130 mm [Hg] Systolic Blood Pressure 2024-07-09 09:42:00.000 118 mm [Hg] Systolic Blood Pressure 2024-07-05 08:51:00.000 130 mm [Hg] Systolic Blood Pressure 2024-07-04 12:28:00.000 112 mm [Hg] Systolic Blood Pressure 2024-07-02 13:17:00.000 124 mm [Hg] Systolic Blood Pressure 2024-07-01 11:25:00.000 136 mm [Hg] Systolic Blood Pressure 2024-06-27 17:10:00.000 122 mm [Hg] Systolic Blood Pressure 2024-06-11 09:50:00.000 158 mm [Hg] Systolic Blood Pressure 2024-06-04 10:04:00.000 124 mm [Hg] Systolic Blood Pressure 2024-05-28 09:15:00.000 130 mm [Hg] Systolic Blood Pressure 2024-05-21 09:14:00.000 120 mm [Hg] Diastolic Blood Pressure 2024-07-10 12:05:00.000 80 mm [Hg] Diastolic Blood Pressure 2024-07-09 15:20:00.000 60 mm [Hg] Diastolic Blood Pressure 2024-07-09 09:42:00.000 68 mm [Hg] Diastolic Blood Pressure 2024-07-05 08:51:00.000 60 mm [Hg] Diastolic Blood Pressure 2024-07-04 12:28:00.000 70 mm [Hg] Diastolic Blood Pressure 2024-07-02 13:17:00.000 50 mm [Hg] Diastolic Blood Pressure 2024-07-01 11:25:00.000 80 mm [Hg] Diastolic Blood Pressure 2024-06-27 17:10:00.000 64 mm [Hg] Diastolic Blood Pressure 2024-06-11 09:50:00.000 [...] CONSULTING PHYSICIANS. RN TO OBSERVE AND ASSESS, DIRECTOR OF CASEWORK SERVICES/CANDY WAFFLE ASSEMBLER TO OBSERVE FOR RISK FOR FALLS AND INSTRUCT IN FALL PREVENTION, HOME SAFETY, MEDICATION MANAGEMENT, INFECTION PREVENTION, AND NUTRITION MANAGEMENT. RN/DIRECTOR OF CASEWORK SERVICES/CANDY WAFFLE ASSEMBLER NURSE MAY PERFORM O2 SATURATION LEVEL ON ADMISSION AND PRN FOR RN TO ASSESS/DIRECTOR OF CASEWORK SERVICES TO OBSERVE PATIENT, WITH NOTIFICATION TO THE PHYSICIAN IF SATURATION IS 90% IN THE ABSENCE OF MORE SPECIFIC PARAMETERS FROM THE PHYSICIAN. AGENCY MAY PERFORM A RESUMPTION OF CARE VISIT FOLLOWING ANY HOSPITAL ADMISSION. RN/DIRECTOR OF CASEWORK SERVICES/CANDY WAFFLE ASSEMBLER TO MONITOR CO-MORBID CONDITIONS LISTED ON THE PLAN OF CARE AND ANY NEW CONDITIONS THAT PRESENT THEMSELVES DURING THIS EPISODE TO IDENTIFY CHANGES AND INTERVENE TO MINIMIZE COMPLICATIONS. [code = RN TO OBSERVE, ASSESS, EVALUATE, AND DEVELOP AN INDIVIDUALIZED PLAN OF CARE. AGENCY MAY ACCEPT ORDERS FROM CONSULTING PHYSICIANS. RN TO OBSERVE AND ASSESS, DIRECTOR OF CASEWORK SERVICES/CANDY WAFFLE ASSEMBLER TO OBSERVE FOR RISK FOR FALLS AND INSTRUCT IN FALL PREVENTION, HOME SAFETY, MEDICATION MANAGEMENT, INFECTION PREVENTION, AND NUTRITION MANAGEMENT. RN/DIRECTOR OF CASEWORK SERVICES/CANDY WAFFLE ASSEMBLER NURSE MAY PERFORM O2 SATURATION LEVEL ON ADMISSION AND PRN FOR RN TO ASSESS/DIRECTOR OF CASEWORK SERVICES TO OBSERVE PATIENT, WITH NOTIFICATION TO THE PHYSICIAN IF SATURATION IS 90% IN THE ABSENCE OF MORE SPECIFIC PARAMETERS FROM THE PHYSICIAN. AGENCY MAY PERFORM A RESUMPTION OF CARE VISIT FOLLOWING ANY HOSPITAL ADMISSION. RN/DIRECTOR OF CASEWORK SERVICES/CANDY WAFFLE ASSEMBLER TO MONITOR CO-MORBID CONDITIONS LISTED ON THE PLAN OF CARE AND ANY NEW CONDITIONS THAT PRESENT THEMSELVES DURING THIS EPISODE TO IDENTIFY CHANGES AND INTERVENE TO MINIMIZE COMPLICATIONS.] Future Scheduled Test MEDICATION MANAGEMENT; RN/DIRECTOR OF CASEWORK SERVICES/CANDY WAFFLE ASSEMBLER TO REVIEW MEDICATIONS FOR INTERACTIONS, EFFECTIVENESS OF DRUG THERAPY, AND SIGNS/SYMPTOMS OF ADVERSE REACTIONS. MAY INSTRUCT AND REINFORCE MEDICATION TEACHING RELATED TO THE USE OF MEDICATIONS, DOSAGE, FREQUENCY, PURPOSE, SIDE EFFECTS, AND TO REPORT COMPLICATIONS. HELP SET UP BUBBLE PACKS [code = MEDICATION MANAGEMENT; RN/DIRECTOR OF CASEWORK SERVICES/CANDY WAFFLE ASSEMBLER TO REVIEW MEDICATIONS FOR INTERACTIONS, EFFECTIVENESS OF DRUG THERAPY, AND SIGNS/SYMPTOMS OF ADVERSE REACTIONS. MAY INSTRUCT AND REINFORCE MEDICATION TEACHING RELATED TO THE USE OF MEDICATIONS, DOSAGE, FREQUENCY, PURPOSE, SIDE EFFECTS, AND TO REPORT COMPLICATIONS. HELP SET UP BUBBLE PACKS] Future Scheduled Test RISK FOR H OSPITALIZATION; RN TO ASSESS/TEACH, CANDY WAFFLE ASSEMBLER/DIRECTOR OF CASEWORK SERVICES TO OBSERVE/TEACH PATIENT/CAREGIVER ON RISK FOR HOSPITALIZATION/EMERGENCY ROOM VISITS, TEACH SIGNS AND SYMPTOMS THAT PUT PATIENT AT RISK, WHEN TO NOTIFY NURSE/PHYSICIAN OF COMPLICATIONS/DECLINE, AND WHEN TO CALL 911. [code = RISK FOR HOSPITALIZATION; RN TO ASSESS/TEACH, CANDY WAFFLE ASSEMBLER/DIRECTOR OF CASEWORK SERVICES TO OBSERVE/TEACH PATIENT/CAREGIVER ON RISK FOR HOSPITALIZATION/EMERGENCY ROOM VISITS, TEACH SIGNS AND SYMPTOMS THAT PUT PATIENT AT RISK, WHEN TO NOTIFY NURSE/PHYSICIAN OF COMPLICATIONS/DECLINE, AND WHEN TO CALL 911.] Future Scheduled Test CARDIOVASC ULAR SYSTEM; RN TO ASSESS/TEACH, DIRECTOR OF CASEWORK SERVICES/CANDY WAFFLE ASSEMBLER TO OBSERVE/TEACH RELATED TO ALTERED CARDIOVASCULAR STATUS TO MINIMIZE COMPLICATIONS AND REDUCE HOSPITALIZATION. [code = CARDIOVASCULAR SYSTEM; RN TO ASSESS/TEACH, DIRECTOR OF CASEWORK SERVICES/CANDY WAFFLE ASSEMBLER TO OBSERVE/TEACH RELATED TO ALTERED CARDIOVASCULAR STATUS TO MINIMIZE COMPLICATIONS AND REDUCE HOSPITALIZATION.] Future Scheduled Test HYPERTENSI ON MANAGEMENT; RN TO ASSESS AND TEACH, DIRECTOR OF CASEWORK SERVICES/CANDY WAFFLE ASSEMBLER TO OBSERVE AND TEACH WARNING SIGNS AND SYMPTOMS TO AVOID HOSPITALIZATION. [code = HYPERTENSION MANAGEMENT; RN TO ASSESS AND TEACH, DIRECTOR OF CASEWORK SERVICES/CANDY WAFFLE ASSEMBLER TO OBSERVE AND TEACH WARNING SIGNS AND SYMPTOMS TO AVOID HOSPITALIZATION.] Future Scheduled Test ARRHYTHMIA MANAGEMENT; RN TO ASSESS AND TEACH, DIRECTOR OF CASEWORK SERVICES/CANDY WAFFLE ASSEMBLER TO OBSERVE AND TEACH WARNING SIGNS AND SYMPTOMS TO AVOID HOSPITALIZATION. [code = ARRHYTHMIA MANAGEMENT; RN TO ASSESS AND TEACH, DIRECTOR OF CASEWORK SERVICES/CANDY WAFFLE ASSEMBLER TO OBSERVE AND TEACH WARNING SIGNS AND SYMPTOMS TO AVOID HOSPITALIZATION.] Future Scheduled Test SKIN INTEG RITY RN TO ASSESS AND TEACH, DIRECTOR OF CASEWORK SERVICES/CANDY WAFFLE ASSEMBLER TO OBSERVE AND TEACH INTEGUMENTARY STATUS TO IDENTIFY CHANGES AND INTERVENE TO MINIMIZE COMPLICATIONS. PROVIDE SKILLED TEACHING OF GENERAL WOUND AND SKIN CARE AND PREVENTION RELATED TO POTENTIAL FOR ALTERED SKIN INTEGRITY [code = SKIN INTEGRITY RN TO ASSESS AND TEACH, DIRECTOR OF CASEWORK SERVICES/CANDY WAFFLE ASSEMBLER TO OBSERVE AND TEACH INTEGUMENTARY STATUS TO IDENTIFY CHANGES AND INTERVENE TO MINIMIZE COMPLICATIONS. PROVIDE SKILLED TEACHING OF GENERAL WOUND AND SKIN CARE AND PREVENTION RELATED TO POTENTIAL FOR ALTERED SKIN INTEGRITY ] Future Scheduled Test PAIN MANAG EMENT; RN TO ASSESS AND TEACH, CANDY WAFFLE ASSEMBLER/DIRECTOR OF CASEWORK SERVICES TO OBSERVE AND TEACH AND PROVIDE EDUCATION ON PAIN MANAGEMENT TECHNIQUES. [code = PAIN MANAGEMENT; RN TO ASSESS AND TEACH, CANDY WAFFLE ASSEMBLER/DIRECTOR OF CASEWORK SERVICES TO OBSERVE AND TEACH AND PROVIDE EDUCATION ON PAIN MANAGEMENT TECHNIQUES.] Future Scheduled Test FALL REDUC TION MANAGEMENT; RN TO ASSESS AND OBSERVE, DIRECTOR OF CASEWORK SERVICES/CANDY WAFFLE ASSEMBLER TO OBSERVE FALL RISK FACTORS AND EDUCATE PATIENT/CAREGIVER ON STRATEGIES TO MINIMIZE THE RISK OF FALLING. [code = FALL REDUCTION MANAGEMENT; RN TO ASSESS AND OBSERVE, DIRECTOR OF CASEWORK SERVICES/CANDY WAFFLE ASSEMBLER TO OBSERVE FALL RISK FACTORS AND EDUCATE PATIENT/CAREGIVER ON STRATEGIES TO MINIMIZE THE RISK OF FALLING.] Future Scheduled Test RESPIRATOR Y SYSTEM MANAGEMENT; RN TO ASSESS AND TEACH, DIRECTOR OF CASEWORK SERVICES/CANDY WAFFLE ASSEMBLER TO OBSERVE AND TEACH RELATED TO ALTERED RESPIRATORY STATUS TO MINIMIZE COMPLICATIONS AND REDUCE HOSPITALIZATION. [code = RESPIRATORY SYSTEM MANAGEMENT; RN TO ASSESS AND TEACH, DIRECTOR OF CASEWORK SERVICES/CANDY WAFFLE ASSEMBLER TO OBSERVE AND TEACH RELATED TO ALTERED RESPIRATORY STATUS TO MINIMIZE COMPLICATIONS AND REDUCE HOSPITALIZATION.] Goal Patient Goal - [place] LIKE TO BE ABLE TO EAT AND SLEEP RIGHT. Goal 2024-05-16 Patient Goal - [place] LIKE TO BE ABLE TO EAT AND SLEEP RIGHT. Goal 2024-06-27 Patient Goal - [place] LIKE TO [...] Goals Met 2024-03-22 00:00:00 2024-07-19 00:00:00 Outpatient RECERTIFIC ATDAGOBERTO [facility]MAN [facility] [id number] 17.50
--- OUTSIDE RECORDS SUMMARY | 2024-07-11 14:35 | XMS_ITS | Encounter Summary ---
Author Organization [facility] Address [address] [place] [address] Care Team Providers Care Integrated Marketing Specialist Name Role Phone Yolande Nicholas DO Primary Care Pro vider Unavailable Anuj Priest DO Primary Care Provider [facility], Pcp Primary Care Provider Unavailabl e Reason for Visit * Reason Onset Date Comments Faxed Order 10/05/2019 [facility] Encounter Details Date Type Department Care Team Description 10/05/2019 Telephone Adult Medicine [address] [address] Yolande Nicholas DO Faxed Order ([facility]) Social History Tobacco Use Types Packs/Day [...] review, sign and fax back orders to [facility]. documented in this encounter Plan of Treatment Not on file documented as of this encounter Visit Diagnoses Not on filedocumented in this encounter Care Teams Integrated Marketing Specialist Relationship Specialty Start Date End Date Yolande Nicholas DO PCP - General Internal Medicine 12/03/18 10/08/20 Anuj Priest DO PCP - General Internal Medicine 10/09/20 2 [facility], Pcp PCP - General Internal Medicine 06/17/21 documented as of this encounter
--- OUTSIDE RECORDS SUMMARY | 2024-07-11 14:35 | XMS_ITS | Encounter Summary ---
Author Organization [facility] Address [address] [place] [address] Care Team Providers Care Salt Cutter Name Role Phone Yolande Nicholas DO Primary Care Pro vider Unavailable Anuj Priest DO Primary Care Provider Judy Gardner, Pcp Primary Care Provider Unavailabl e Encounter Details Date Type Department Care Team Description 09/20/2019 Pt. Non Urgent Medic al Question Adult Medicine [address] [address] Yolande Nicholas DO Social History Tobacco Use [...] filedocumented in this encounter Care Teams Salt Cutter Relationship Specialty Start Date End Date Yolande Nicholas DO PCP - General Internal Medicine 12/03/18 10/08/20 Anuj Priest DO PCP - General Internal Medicine 10/09/20 Molly Gardner, Pcp PCP - General Internal Medicine 06/17/21 documented as of this encounter
--- OUTSIDE RECORDS SUMMARY | 2024-07-11 14:35 | XMS_ITS | Encounter Summary ---
Author Organization [facility] Address [address] [place] [address] Care Team Providers Care Mailroom Supervisor Name Role Phone Yolande Nicholas DO Primary Care Pro vider Unavailable Anuj Priest DO Primary Care Provider [facility], Pcp Primary Care Provider Unavailabl e Reason for Visit * Reason Onset Date Comments anxiety 09/16/2019 Encounter Details Date Type Department Care Team Description 09/16/2019 Pt. Non Urgent Medic al Question Adult Medicine [address] [address] Yolande Nicholas DO Social History Tobacco Use [...] the med report [facility] . I need to know which meds i should take? Alex Nettles documented in this encounter Plan of Treatment Not on file documented as of this encounter Visit Diagnoses Not on filedocumented in this encounter Care Teams Mailroom Supervisor Relationship Specialty Start Date End Date Yolande Nicholas DO PCP - General Internal Medicine 12/03/18 10/08/20 Anuj Priest DO PCP - General Internal Medicine 10/09/20 2 [facility], Pcp PCP - General Internal Medicine 06/17/21 documented as of this encounter
--- OUTSIDE RECORDS SUMMARY | 2024-07-11 14:35 | XMS_ITS | Encounter Summary ---
Author [facility] Address [address] [place] [address] Care Team Providers Care Veneer Sorter Name Role Phone Ghassan Burciaga MD Primary Care Provider Unavail able Pierre Arevalo MD Primary Care Provider Judy vailable Gerson [place] MD Primary Care Provider Unavail able [facility], Pcp Primary Care Provider Unavailabl e Coleman Mccarthy MD Primary Care Provider Unavaila Ayo Demarco MD Primary Care Provider [phone] Annalee Jones MD Primary Care Provider Un available Pascual Nicholasabela DO Primary Care Pro vider Unavailable Anuj Priest DO Primary Care Provider Judy vailable [facility], Pcp Primary Care Provider Unavailabl e Encounter Details Date Type Department Care Team Description 11/07/2012 Pt. Non Urgent Medic al Question Medicine/Pediatrics - [address] [id number] Ghassan Burciaga MD Social History Tobacco Use [...] MonNov 07, 2012 3:01 PM Subject: prescription [id number] Rohith Leung documented in this encounter Plan of Treatment Not on file documented as of this encounter Visit Diagnoses Not on filedocumented in this encounter Care Teams Veneer Sorter Relationship Specialty Start Date End Date Ghassan Burciaga MD PCP - General 07/24/00 05/06/13 Pierre Arevalo MD PCP - General Internal Medicine 05/07/13 4 Gerson [place] MD PCP - General Internal Medicine 01/30/14 03/20/14 [facility], Pcp PCP - General Internal Medicine 03/21/14 05/06/14 Coleman Mccarthy MD PCP - General Internal Medicine 05/07/14 07/18/16 Ayo Carpio MD [address] [place], [place] [id number] PCP - General Internal Medicine 07/19/16 01/05/17 Annalee Jones MD [address] [place] [address] PCP - General Internal Medicine 01/06/17 12/02/18 Yolande Nicholas, DO [address] [place] [address] PCP - General Internal Medicine 12/03/18 10/08/20 Anuj Priest, [address] [place] [id number] PCP - General Internal Medicine 10/09/20 06/16/21 [facility], Pcp PCP - General Internal Medicine 06/17/21 documented as of this encounter
--- OUTSIDE RECORDS SUMMARY | 2024-07-11 14:35 | XMS_ITS | Encounter Summary ---
Author Organization [facility] Address [address] [place] [address] Care Team Providers Care Car Shunter Name Role Phone Yolande Nicholas DO Primary Care Pro vider Unavailable Anuj Priest DO Primary Care Provider [facility], Pcp [facility] Encounter Details Date Type Department Care Team Description 09/26/2019 Pt. Non Urgent Medical Question Adult Medicine [address] [address] Alana Stinson MD [address] [place] [id number] Social History Tobacco Use Types Packs/Day [...] him, told him needs to fu / [facility] cards for both. Can consider [...] filedocumented in this encounter Care Teams Car Shunter Relationship Specialty Start Date End Date Yolande Nicholas DO PCP - General Internal Medicine 12/03/18 10/08/20 Anuj Priest DO PCP - General Internal Medicine 10/09/20 2 [facility], Pcp PCP - General Internal Medicine 06/17/21 documented as of this encounter
--- OUTSIDE RECORDS SUMMARY | 2024-07-11 14:35 | XMS_ITS | Encounter Summary ---
Author Organization [facility] Address [address] [place] [address] Care Team Providers Care Rack Room Worker Name Role Phone Ghassan Burciaga MD Primary Care Provider Unavail able Pierre Arevalo MD Primary Care Provider Judy vailable Gerson [place] MD Primary Care Provider Unavail able [facility], Pcp Primary Care Provider Unavailabl e Coleman Mccarthy MD Primary Care Provider Unavaila Ayo Demarco MD Primary Care Provider [phone] Annalee Jones MD Primary Care Provider Un available Pascual Nicholasabela DO Primary Care Pro vider Unavailable Anuj Priest DO Primary Care Provider Judy vailable [facility], Pcp Primary Care Provider Unavailabl e Encounter Details Date Type Department Care Team Description 09/27/2012 Release of Information Medical Records [address] [place] [id number] Abstract, Provider Social History Tobacco Use Types [...] on filedocumented in this encounter Care Teams Rack Room Worker Relationship Specialty Start Date End Date Ghassan Burciaga MD PCP - General 07/24/00 05/06/13 Pierre Arevalo MD PCP - General Internal Medicine 05/07/13 4 Gerson [place] MD PCP - General Internal Medicine 01/30/14 03/20/14 [facility] Pcp PCP - General Internal Medicine 03/21/14 05/06/14 Coleman Mccarthy MD PCP - General Internal Medicine 05/07/14 07/18/16 Ayo Carpio MD [address] [place], [place] [id number] PCP - General Internal Medicine 07/19/16 01/05/17 Annalee Jones MD [address] [place], [place] [id number] PCP - General Internal Medicine 01/06/17 12/02/18 Yolande Nicholas DO [address] [place] [address] PCP - General Internal Medicine 12/03/18 10/08/20 Anuj Priest DO [address] [place] [address] PCP - General Internal Medicine 10/09/20 06/16/21 [facility], Pcp PCP - General Internal Medicine 06/17/21 documented as of this encounter
--- OUTSIDE RECORDS SUMMARY | 2024-07-11 14:35 | XMS_ITS | Encounter Summary ---
Author Organization [facility] Address [address] [place] [address] Care Team Providers Care Medical Dermatologist Name Role Phone Ghassan Burciaga MD Primary Care Provider Unavail able Pierre Arevalo MD Primary Care Provider Judy vailable Gerson Dawson MD Primary Care Provider Unavail able [facility], Pcp Primary Care Provider Unavailabl Coleman Sampson MD Primary Care Provider Unavaila Ayo Demarco MD Primary Care Provider [phone] Annalee Jones MD Primary Care Provider Un available Pascual Nicholasabela DO Primary Care Pro vider Unavailable Anuj Priest DO Primary Care Provider Judy vailable [facility], Pcp Primary Care Provider Unavailabl e Encounter Details Date Type Department Care Team Description 06/27/2011 Business Doc Medical Records [address] [place] [address] Abstract, Provider Social History Tobacco Use Types [...] filedocumented in this encounter Care Teams Medical Dermatologist Relationship Specialty Start Date End Date Ghassan Burciaga MD PCP - General 07/24/00 05/06/13 Pierre Arevalo MD PCP - General Internal Medicine 05/07/13 4 Gerson Dawson MD PCP - General Internal Medicine 01/30/14 03/20/14 [facility], Pcp PCP - General Internal Medicine 03/21/14 05/06/14 Coleman Mccarthy MD PCP - General Internal Medicine 05/07/14 07/18/16 Ayo Carpio MD [address] [place], [place] [id number] PCP - General Internal Medicine 07/19/16 01/05/17 Annalee Jones MD [address] [place], [place] [id number] PCP - General Internal Medicine 01/06/17 12/02/18 Yolnade Nicholas DO [address] [place] [address] PCP - General Internal Medicine 12/03/18 10/08/20 Anuj Priest DO [address] [place] [address] PCP - General Internal Medicine 10/09/20 06/16/21 [facility], Pcp PCP - General Internal Medicine 06/17/21 documented as of this encounter
--- OUTSIDE RECORDS SUMMARY | 2024-07-11 14:35 | XMS_ITS | Encounter Summary ---
Author Organization [facility] Address [address] [place] [address] Care Team Providers Care Merchandise Worker Name Role Phone Yolande Nicholas DO Primary Care Pro vider Unavailable Anuj Priest DO Primary Care Provider Judy Gardner, Pcp Primary Care Provider Unavailabl e Encounter Details Date Type Department Care Team Description 10/08/2019 Home Health Certification Medical Records [address] [place] [address] Home, [facility] [address] [place] [address] Social History Tobacco Use Types Packs/Day Years [...] on filedocumented in this encounter Care Teams Merchandise Worker Relationship Specialty Start Date End Date Yolande Nicholas DO PCP - General Internal Medicine 12/03/18 10/08/20 Anuj Priest DO PCP - General Internal Medicine 10/09/20 Molly Gardner, Pcp PCP - General Internal Medicine 06/17/21 documented as of this encounter
--- OUTSIDE RECORDS SUMMARY | 2024-07-11 14:35 | XMS_ITS | Encounter Summary ---
Author Organization [facility] Address [address] [place] [address] Care Team Providers Care Cigar Head Piercer Name Role Phone Yolande Nicholas DO Primary Care Pro vider Unavailable Anuj Priest DO Primary Care Provider [facility], Pcp Primary Care Provider Unavailabl e Reason for Visit * Reason Onset Date Comments Faxed Refill 09/10/2019 Encounter Details Date Type Department Care Team Description 09/10/2019 Refill Adult Medicine [address] [address] Yolande Nicholas DO Faxed Refill Social History [...] N/A Patients current insurance carrier is: Payor: [facility] - MEDICARE / Plan: MEDICARE FFS [facility] [id number] / Product Type: MEDICARE [id number] documented in this encounter Plan of Treatment Not on file documented as of this encounter Visit Diagnoses Not on filedocumented in this encounter Care Teams Cigar Head Piercer Relationship Specialty Start Date End Date Yolande Nicholas DO PCP - General Internal Medicine 12/03/18 10/08/20 Anuj Priest DO PCP - General Internal Medicine 10/09/20 2 [facility], Pcp PCP - General Internal Medicine 06/17/21 documented as of this encounter
--- OUTSIDE RECORDS SUMMARY | 2024-07-11 14:35 | XMS_ITS | Encounter Summary ---
Author Organization [facility] Address [address] [place] [address] Care Team Providers Care Commanding Officer Garage Name Role Phone Yolande Nicholas DO Primary Care Pro vider Unavailable Anuj Priest DO Primary Care Provider Judy Gardner, Pcp Primary Care Provider Unavailabl e Encounter Details Date Type Department Care Team Description 12/26/2019 Hospital Medical Records [address] [place] [address] Social History Tobacco Use Types Packs/Day Years [...] on filedocumented in this encounter Care Teams Commanding Officer Garage Relationship Specialty Start Date End Date Yolande Nicholas DO PCP - General Internal Medicine 12/03/18 10/08/20 Anuj Priest DO PCP - General Internal Medicine 10/09/20 2 Jose G Gardner PCP - General Internal Medicine 06/17/21 documented as of this encounter
--- OUTSIDE RECORDS SUMMARY | 2024-07-11 14:35 | XMS_ITS | Encounter Summary ---
Author Organization [facility] Address [address] [place] [address] Care Team Providers Care Poultry Hatchery Laborer Name Role Phone Yolande Nicholas DO Primary Care Pro vider Unavailable Anuj Priest DO Primary Care Provider [facility], Pcp Primary Care Provider Unavailabl e Reason for Visit * Reason Onset Date Comments Provider Call Back 11/08/2019 Encounter Details Date Type Department Care Team Description 11/08/2019 Telephone Adult Medicine [address] [address] Yolande Nicholas DO Provider Call Back Social [...] Castillo - 11/08/2019 9:02 AM EDT Patients electronic sales and service technician Ame , left a voicemail on patient services answering machine about their narcotic appeal decision. She would like a call back to know the outcome. Please give her a call and tellthem julian. Thank you. documented in this encounter Plan of Treatment Not on file documented as of this encounter Visit Diagnoses Not on filedocumented in this encounter Care Teams Poultry Hatchery Laborer Relationship Specialty Start Date End Date Yolande Nicholas DO PCP - General Internal Medicine 12/03/18 10/08/20 Anuj Priest DO PCP - General Internal Medicine 10/09/20 2 [facility], Pcp PCP - General Internal Medicine 06/17/21 documented as of this encounter
--- OUTSIDE RECORDS SUMMARY | 2024-07-11 14:35 | XMS_ITS | Encounter Summary ---
Author Organization [facility] Address [address] [place] [address] Care Team Providers Care Pst Manager Name Role Phone Yolande Nicholas DO Primary Care Pro vider Unavailable Anuj Priest DO Primary Care Provider [facility], Pcp Primary Care Provider Unavailabl e Reason for Visit * Reason Onset Date Comments Abdominal Pain 10/08/2019 Hernia 10/08/2019 Encounter Details Date Type Department Care Team Description 10/08/2019 Telephone Adult Medicine [address] [address] Yolande Nicholas DO Abdominal Pain; Hernia Social [...] back and can be reached back at [phone] * Telephone Encounter - Minerva Kan R.N. - 10/08/2019 3:06 PM EDT Ame is not with him. Call pt on his cell phone , left a message * Telephone Encounter - Lavonne Bernabe - 10/08/2019 3:04 PM EDT Ame calling back and would like CB at [phone] * Telephone Encounter - Sharmaine Bose - [...] abroad? NO ??? Have you been to [place] or in contact with anyone who has recently been in [place]? NO If pain or injury related was it due to an accident at work or from a motor vehicle accident? NO If yes, gather 3rd republican insurance information Date of accident/Injury: How long has patient had these symptoms?: PCP: Yolande Gomez Payor: [employer] - MEDICARE / Plan: MEDICARE FFS $5 [facility] [id number] / Product Type: MEDICARE [id number] documented in this encounter Plan of Treatment Not on file documented as of this encounter Visit Diagnoses Not on filedocumented in this encounter Care Teams Pst Manager Relationship Specialty Start Date End Date Yolande Nicholas DO PCP - General Internal Medicine 12/03/18 10/08/20 Anuj Priest DO PCP - General Internal Medicine 10/09/20 2 Jj, Pcp PCP - General Internal Medicine 06/17/21 documented as of this encounter
--- OUTSIDE RECORDS SUMMARY | 2024-07-11 14:35 | XMS_ITS | Encounter Summary ---
Author Organization [facility] Address [address] [place] [address] Care Team Providers Care Recruiting Associate Name Role Phone Ghassan Burciaga MD Primary Care Provider Unavail able Pierre Arevalo MD Primary Care Provider Judy vailable Gerson Dawson MD Primary Care Provider Unavail able [facility], Pcp Primary Care Provider Unavailabl e Coleman Mccarthy MD Primary Care Provider Unavaila Ayo Demarco MD Primary Care Provider [phone] Annalee Jones MD Primary Care Provider Un available Pascual Nicholasabela DO Primary Care Pro vider Unavailable Anuj Priest DO Primary Care Provider Judy vailable [facility], Pcp Primary Care Provider Unavailabl e Encounter Details Date Type Department Care Team Description 10/28/2011 Supervisor Carbon Electrodes Report Medical Records [address] [place] [address] Nhan Herbert MD Social History Tobacco Use [...] on filedocumented in this encounter Care Teams Recruiting Associate Relationship Specialty Start Date End Date Ghassan Burciaga MD PCP - General 07/24/00 05/06/13 Pierre Arevalo MD PCP - General Internal Medicine 05/07/13 4 Gerson Dawson MD PCP - General Internal Medicine 01/30/14 03/20/14 [facility], Pcp PCP - General Internal Medicine 03/21/14 05/06/14 Coleman Mccarthy MD PCP - General Internal Medicine 05/07/14 07/18/16 Ayo Carpio MD [address] [place], [place] [id number] PCP - General Internal Medicine 07/19/16 01/05/17 Annalee Jones MD [address] [place], [place] [id number] PCP - General Internal Medicine 01/06/17 12/02/18 Yolande Nicholas DO [address] [place] [address] PCP - General Internal Medicine 12/03/18 10/08/20 Anuj Priest DO [address] [place] [address] PCP - General Internal Medicine 10/09/20 06/16/21 [facility], Pcp PCP - General Internal Medicine 06/17/21 documented as of this encounter
--- OUTSIDE RECORDS SUMMARY | 2024-07-11 14:35 | XMS_ITS | Encounter Summary ---
Author [facility] Address [address] [place] [address] Care Team Providers Care Belt Changer Name Role Phone Yolande Nicholas DO Primary Care Pro vider Unavailable Anuj Priest DO Primary Care Provider Judy Gardner, Pcp Primary Care Provider Unavailabl e Encounter Details Date Type Department Care Team Description 10/23/2019 Release of Information Medical Records [address] [place] [address] Abstract, Provider Social History Tobacco Use Types [...] on filedocumented in this encounter Care Teams Belt Changer Relationship Specialty Start Date End Date Yolande Nicholas DO PCP - General Internal Medicine 12/03/18 10/08/20 Anuj Priest DO PCP - General Internal Medicine 10/09/20 2 Jj, Pcp PCP - General Internal Medicine 06/17/21 documented as of this encounter
--- OUTSIDE RECORDS SUMMARY | 2024-07-11 14:35 | XMS_ITS | Encounter Summary ---
Author Organization [facility] Address [address] [place] [address] Care Team Providers Care Manager Product Name Role Phone Yolande Nicholas DO Primary Care Pro vider Unavailable Anuj Priest DO Primary Care Provider [facility], Pcp Primary Care Provider Unavailabl e Reason for Visit * Reason Onset Date Comments VNA Call 09/16/2019 Encounter Details Date Type Department Care Team Description 09/16/2019 Telephone Internal Medicine - [address], [address] [place], [place] [phone] Alana Stinson MD [address] [place] [phone] VNA Call Social History Tobacco Use [...] 09/16/2019 10:55 AM EDT Message routed to [facility] * Telephone Encounter - Ava Hull - 09/16/2019 10:19 AM EDT VNA CALL Which [facility]NA office is calling? [facility] Full name of caller: Kalie The caller [...] filedocumented in this encounter Care Teams Manager Product Relationship Specialty Start Date End Date Yolande Nicholas DO PCP - General Internal Medicine 12/03/18 10/08/20 Anuj Priest DO PCP - General Internal Medicine 10/09/20 2 [facility], Pcp PCP - General Internal Medicine 06/17/21 documented as of this encounter
--- OUTSIDE RECORDS SUMMARY | 2024-07-11 14:35 | XMS_ITS | Encounter Summary ---
Author Organization [facility] Address [address] [place] [address] Care Team Providers Care Auto Glass Installer Name Role Phone Ghassan Burciaga MD Primary Care Provider Unavail able Pierre Arevalo MD Primary Care Provider Judy vailable Gerson Dawson MD Primary Care Provider Unavail able [facility], Pcp Primary Care Provider Unavailabl e Coleman Mccarthy MD Primary Care Provider Unavaila Ayo Demarco MD Primary Care Provider [phone] Annalee Jones MD Primary Care Provider Un available Kim Banegas Yolande DO Primary Care Pro vider Unavailable Anuj Priest DO Primary Care Provider Judy vailable [facility], Pcp Primary Care Provider Unavailabl e Encounter Details Date Type Department Care Team Description 06/25/2011 Pt. Non Urgent Medic al Question Medicine/Pediatrics - [address] [phone] Ghassan Burciaga MD Social History Tobacco Use [...] on filedocumented in this encounter Care Teams Auto Glass Installer Relationship Specialty Start Date End Date Ghassan Burciaga MD PCP - General 07/24/00 05/06/13 Pierre Arevalo MD PCP - General Internal Medicine 05/07/13 4 Gerson Dawson MD PCP - General Internal Medicine 01/30/14 03/20/14 [facility], Pcp PCP - General Internal Medicine 03/21/14 05/06/14 Coleman Mccarthy MD PCP - General Internal Medicine 05/07/14 07/18/16 Ayo Carpio MD [address] [place] [address] PCP - General Internal Medicine 07/19/16 01/05/17 Annalee Jones MD [address] [place] [address] PCP - General Internal Medicine 01/06/17 12/02/18 Yolande Nicholas, [address] [address] PCP - General Internal Medicine 12/03/18 10/08/20 Anuj Priest, [address] [address] PCP - General Internal Medicine 10/09/20 06/16/21 [facility], Pcp PCP - General Internal Medicine 06/17/21 documented as of this encounter
--- OUTSIDE RECORDS SUMMARY | 2024-07-11 14:35 | XMS_ITS | Encounter Summary ---
Author [facility] Address [address] [place] [address] Care Team Providers Care Deicer Inspector Pneumatic Name Role Phone Yolande Nicholas DO Primary Care Pro vider Unavailable Anuj Priest DO Primary Care Provider [facility], Pcp Primary Care Provider Unavailabl e Reason for Visit * Reason Comments E-prescribe Rx Request Encounter Details Date Type Department Care Team Description 01/01/2020 Refill Adult Medicine [address] [address] Alana Stinson MD [address] [place] [phone] E-prescribe Rx Request Social History Tobacco [...] on filedocumented in this encounter Care Teams Deicer Inspector Pneumatic Relationship Specialty Start Date End Date Yolande Nicholas DO PCP - General Internal Medicine 12/03/18 10/08/20 Anuj Priest DO PCP - General Internal Medicine 10/09/20 2 [facility], Pcp PCP - General Internal Medicine 06/17/21 documented as of this encounter
--- OUTSIDE RECORDS SUMMARY | 2024-07-11 14:35 | XMS_ITS | Encounter Summary ---
Author [facility] Address [address] [place] [address] Care Team Providers Care Doctor Assistant Name Role Phone Yolande Nicholas DO Primary Care Pro vider Unavailable Anuj Priest DO Primary Care Provider Judy Gardner, Pcp Primary Care Provider Unavailabl e Encounter Details Date Type Department Care Team Description 10/07/2019 Solidworks Mechanical Designer Report Medical Records [address] [place] [address] Dhruv Garcia MD Social History Tobacco Use [...] filedocumented in this encounter Care Teams Doctor Assistant Relationship Specialty Start Date End Date Yolande Nicholas DO PCP - General Internal Medicine 12/03/18 10/08/20 Anuj Priest DO PCP - General Internal Medicine 10/09/20 [facility], Pcp PCP - General Internal Medicine 06/17/21 documented as of this encounter
--- OUTSIDE RECORDS SUMMARY | 2024-07-11 14:36 | XMS_ITS | Encounter Summary ---
Author [facility] Address [address] [place] [address] Care Team Providers Care Table Runner Name Role Phone Yolande Nicholas DO Primary Care Pro vider Unavailable Anuj Priest DO Primary Care Provider Judy Gardner, Pcp Primary Care Provider Unavailabl e Encounter Details Date Type Department Care Team Description 2020 Hospital Medical Records [address] [place] [address] Abstract, Provider Social History Tobacco Use Types [...] on filedocumented in this encounter Care Teams Table Runner Relationship Specialty Start Date End Date Yolande Nicholas DO PCP - General Internal Medicine 12/03/18 10/08/20 Anuj Priest DO PCP - General Internal Medicine 10/09/20 2 [facility], Pcp PCP - General Internal Medicine 06/17/21 documented as of this encounter
--- OUTSIDE RECORDS SUMMARY | 2024-07-11 14:36 | XMS_ITS | Encounter Summary ---
Author Organization [email or web address] Address [address] [place] [address] Care Team Providers Care Front Of House Manager Name Role Phone Ghassan Burciaga MD Primary Care Provider Unavail able Pierre Arevalo MD Primary Care Provider Judy vailable Gerson Dawson MD Primary Care Provider Unavail able [facility], Pcp Primary Care Provider Unavailabl e Coleman Mccarthy MD Primary Care Provider Unavaila Ayo Demarco MD Primary Care Provider [phone] Annalee Jones MD Primary Care Provider Un available Pascual Nicholasabela DO Primary Care Pro vider Unavailable Anuj Priest DO Primary Care Provider Judy vailable [facility], Pcp Primary Care Provider Unavailabl e Encounter Details Date Type Department Care Team Description 01/19/2007 Hospital Medical Records [address] [place] [address] Cathie Hopkins Social History Tobacco Use Types [...] on filedocumented in this encounter Care Teams Front Of House Manager Relationship Specialty Start Date End Date Ghassan Burciaga MD PCP - General 07/24/00 05/06/13 Pierre Arevalo MD PCP - General Internal Medicine 05/07/13 4 Gerson Dawson MD PCP - General Internal Medicine 01/30/14 03/20/14 [facility], Pcp PCP - General Internal Medicine 03/21/14 05/06/14 Coleman Mccarthy MD PCP - General Internal Medicine 05/07/14 07/18/16 Ayo Carpio MD [address] [place], [place] [id number] PCP - General Internal Medicine 07/19/16 01/05/17 Annalee Jones MD [address] [place], [place] [id number] PCP - General Internal Medicine 01/06/17 12/02/18 Yolande Nicholas DO [address] [place] [address] PCP - General Internal Medicine 12/03/18 10/08/20 Anuj Priest DO [address] [place] [address] PCP - General Internal Medicine 10/09/20 06/16/21 [facility], Pcp PCP - General Internal Medicine 06/17/21 documented as of this encounter
--- OUTSIDE RECORDS SUMMARY | 2024-07-11 14:36 | XMS_ITS | Encounter Summary ---
Author Organization [facility] Address [address] [place] [address] Care Team Providers Care District Administrator Name Role Phone Pierre Mccarthy MD Primary Care Provider Judy vailable Gerson Dawson MD Primary Care Provider Unavail able Count Includes [facility], Pcp Primary Care Provider Unavailabl e Coleman Mccarthy MD Primary Care Provider Unavaila Ayo Demarco MD Primary Care Provider [phone] Annalee Jones MD Primary Care Provider Un available Yolande Nicholas DO Primary Care Pro vider Unavailable Anuj Priest DO Primary Care Provider Judy vailable [facility], Pcp Primary Care Provider Unavailabl e Reason for Visit * Reason Onset Date Comments Eye Injury 01/06/2014 Encounter Details Date Type Department Care Team Description 01/06/2014 Telephone Adult [address] [address] Pierre Mccarthy MD Eye Injury Social History [...] ER. He agrees and will go to [facility]. He requested that we call [facility] and let them know that he was coming. Spoke with Dora at [facility] and told her that patientwas coming. * [...] symptoms?: 1 day PCP: Pierre Mccarthy [place] / [place] / Product Type: MEDICARE [id number] documented in this encounter Plan of Treatment Not on file documented as of this encounter Visit Diagnoses Not on filedocumented in this encounter Care Teams District Administrator Relationship Specialty Start Date End Date Pierre Mccarthy MD PCP - General Internal Medicine 05/07/13 4 Gerson Dawson MD PCP - General Internal Medicine 01/30/14 03/20/14 Count Includes [facility], Pcp PCP - General Internal Medicine 03/21/14 05/06/14 Coleman Mccarthy MD PCP - General Internal Medicine 05/07/14 07/18/16 Ayo Carpio MD [address] [place] [address] PCP - General Internal Medicine 07/19/16 01/05/17 Annalee Jones MD [address] [place], [place] [id number] PCP - General Internal Medicine 01/06/17 12/02/18 Yolande Nicholas, [address] [place], [place] [id number] PCP - General Internal Medicine 12/03/18 10/08/20 Anuj Priest DO [address] [place] [address] PCP - General Internal Medicine 10/09/20 06/16/21 Count Includes [facility], Pcp PCP - General Internal Medicine 06/17/21 documented as of this encounter
--- OUTSIDE RECORDS SUMMARY | 2024-07-11 14:36 | XMS_ITS | Encounter Summary ---
Author Organization [facility] Address [address] [place] [address] Care Team Providers Care Agricultural Equipment Sales Manager Name Role Phone Yolande Nicholas DO Primary Care Pro vider Unavailable Anuj Priest DO Primary Care Provider [facility], Pcp Primary Care Provider Unavailabl e Reason for Visit * Reason Onset Date Comments VNA Call 01/28/2020 Encounter Details Date Type Department Care Team Description 01/28/2020 Telephone Adult [address] [address] Yolande Nicholas DO VNA Call Social History [...] Kan R.N. - 01/28/2020 8:57 AM EDT [phone] (home) Pt is being seen by surgeons [...] on filedocumented in this encounter Care Teams Agricultural Equipment Sales Manager Relationship Specialty Start Date End Date Yolande Nicholas DO PCP - General Internal Medicine 12/03/18 10/08/20 Anuj Priest DO PCP - General Internal Medicine 10/09/[address] [place] [address], Pcp PCP - General Internal Medicine 06/17/21 documented as of this encounter
--- OUTSIDE RECORDS SUMMARY | 2024-07-11 14:36 | XMS_ITS | Encounter Summary ---
Author Organization [facility] Address [address] [place] [address] Care Team Providers Care Registered Pharmacist Name Role Phone Ghassan Burciaga MD Primary Care Provider Unavail able Pierre Arevalo MD Primary Care Provider Jduy vailable Gerson Dawson MD Primary Care Provider Unavail able [facility], Pcp Primary Care Provider Unavailabl e Coleman Mccarthy MD Primary Care Provider Unavaila Ayo Demarco MD Primary Care Provider [phone] Annalee Jones MD Primary Care Provider Un available Pascual Nicholasabela DO Primary Care Pro vider Unavailable Anuj Priest DO Primary Care Provider Judy vailable [facility], Pcp Primary Care Provider Unavailabl e Encounter Details Date Type Department Care Team Description 01/16/2007 Hospital Medical Records [address] [place] [address] Tyler Bloom MD Social History Tobacco Use [...] on filedocumented in this encounter Care Teams Registered Pharmacist Relationship Specialty Start Date End Date Ghassan Burciaga MD PCP - General 07/24/00 05/06/13 Pierre Arevalo MD PCP - General Internal Medicine 05/07/13 4 Gerson Dawson MD PCP - General Internal Medicine 01/30/14 03/20/14 [facility], Pcp PCP - General Internal Medicine 03/21/14 05/06/14 Coleman Mccartyh MD PCP - General Internal Medicine 05/07/14 07/18/16 Ayo aCrpio MD [address] [place], [place] [phone] PCP - General Internal Medicine 07/19/16 01/05/17 Annalee Jones MD [address] [place], [place] [phone] PCP - General Internal Medicine 01/06/17 12/02/18 Yolande Nicholas, DO [address] [place] [address] PCP - General Internal Medicine 12/03/18 10/08/20 Anuj Priest, [address] [place] [address] PCP - General Internal Medicine 10/09/20 06/16/21 [facility], Pcp PCP - General Internal Medicine 06/17/21 documented as of this encounter
--- OUTSIDE RECORDS SUMMARY | 2024-07-11 14:36 | XMS_ITS | Encounter Summary ---
Author Organization [facility] Address [address] [place] [address] Care Team Providers Care Child Care Leader Name Role Phone Pierre Arevalo MD Primary Care Provider Judy vailable Gerson Dawson MD Primary Care Provider Unavail able [facility], Pcp Primary Care Provider Unavailabl e Coleman Mccarthy MD Primary Care Provider Unavaila Ayo Demarco MD Primary Care Provider [phone] Annalee Jones MD Primary Care Provider Un available Yolande Nicholas DO Primary Care Pro vider Unavailable Anuj Priest DO Primary Care Provider Judy vailable [facility], Pcp Primary Care Provider Unavailabl e Reason for Visit * Reason Onset Date Comments TEST RESULTS 07/17/2013 Encounter Details Date Type Department Care Team Description 07/17/2013 Telephone Physiatry - [address] [address] Luda Jenkins PA-C TEST RESULTS Social History [...] steroid injection. * Telephone Encounter - Luda eJnkins PA-C - 07/19/2013 8:33 AM EDT I [...] myelopathy documented in this encounter Care Teams Child Care Leader Relationship Specialty Start Date End Date Pierre Arevalo MD PCP - General Internal Medicine 05/07/13 4 Gerson Dawson MD PCP - General Internal Medicine 01/30/14 03/20/14 [facility], Pcp PCP - General Internal Medicine 03/21/14 05/06/14 Coleman Mccarthy MD PCP - General Internal Medicine 05/07/14 07/18/16 Ayo Carpio MD [address] [place] [address] PCP - General Internal Medicine 07/19/16 01/05/17 Annalee Jones MD [address] [place] [address] PCP - General Internal Medicine 01/06/17 12/02/18 Yolande Nicholas, DO [address] [place] [address] PCP - General Internal Medicine 12/03/18 10/08/20 Anuj Priest, DO [address] [place] [address] PCP - General Internal Medicine 10/09/20 06/16/21 [facility], Pcp PCP - General Internal Medicine 06/17/21 documented as of this encounter
--- OUTSIDE RECORDS SUMMARY | 2024-07-11 14:36 | XMS_ITS | Encounter Summary ---
Author Organization [facility] Address [address] [place] [address] Care Team Providers Care Appliance Painter And Refinisher Name Role Phone Yolande Nicholas DO Primary Care Pro vider Unavailable Anuj Priest DO Primary Care Provider Judy álvarez [facility], Pcp Primary Care Provider Unavailabl e Encounter Details Date Type Department Care Team Description 01/13/2020 Snapper On Report Medical Records [address] [place] [address] Carl Rai MD Social History Tobacco Use [...] on filedocumented in this encounter Care Teams Appliance Painter And Refinisher Relationship Specialty Start Date End Date Yolande Nicholas DO PCP - General Internal Medicine 12/03/18 10/08/20 Anuj Priest DO PCP - General Internal Medicine 10/09/20 [facility], Pcp PCP - General Internal Medicine 06/17/21 documented as of this encounter
--- OUTSIDE RECORDS SUMMARY | 2024-07-11 14:36 | XMS_ITS | Encounter Summary ---
Author Organization [facility] Address [address] [place] [address] Care Team Providers Care Offset Second Press Operator Name Role Phone Yolande Nicholas DO Primary Care Pro vider Unavailable Anuj Priest DO Primary Care Provider [facility], Pcp Primary Care Provider [facility] services e Encounter Details Date Type Department Care Team Description 07/02/2019 Pt. Non Urgent Medic al Question Adult Medicine [address] [address] Yolande Nicholas DO Social History Tobacco Use [...] on filedocumented in this encounter Care Teams Offset Second Press Operator Relationship Specialty Start Date End Date Yolande Nicholas DO PCP - General Internal Medicine 12/03/18 10/08/20 Anuj Priest DO PCP - General Internal Medicine 10/09/[address] [place] [address], Pcp PCP - General Internal Medicine 06/17/21 documented as of this encounter
--- OUTSIDE RECORDS SUMMARY | 2024-07-11 14:36 | XMS_ITS | Encounter Summary ---
Author Organization [employer] Address [address] [facility] 7t [place] [address] Care Team Providers Care Trust Advisor Name Role Phone Sesar Pereyra MD Primary Care Provider [phone] Encounter Details Date Type Department Care Team [...] Description 09/11/2024 10:30 AM EDT Office Visit [facility]EDS [address] [place] [address] Sesar Pereyra MD [address] [place] [address] documented as of this encounter Visit Diagnoses Not on filedocumented in this encounter Additional Health Concerns Assessment Noted Time PHQ-9 Depression Total Score: 16 024 10:59 AM EDT documented as of this encounter Care Teams Trust Advisor Relationship Specialty Start Date End Date Sesar Pereyra MD [address] [place] [address] PCP - General Internal Medicine [facility]01[facility] documented as of this encounter
--- OUTSIDE RECORDS SUMMARY | 2024-07-11 14:36 | XMS_ITS | Encounter Summary ---
Author Organization [employer] Address [address] [facility] 7[address] [place] [address] Care Team Providers Care Pr Internship Name Role Phone Sesar Pereyra MD Primary Care Provider [phone] Reason for Visit * Reason Onset Date Comments NTTS OUTREACT CALL 07/09/2024 Encounter Details Date Type Department Care Team ([facility] st Contact Info) Description 07/09/2024 Telephone [facility] [address] [place] [address] Gracie Jewell RN NTTS OUTREACT CALL Social History Tobacco Use Types Packs/Day Years [...] encounter Miscellaneous Notes * Telephone Encounter - Gracie Jewell RN - 07/09/2024 2:42 PM EDT TC to pt. Pt reporting pain in his shoulder after shoulder surgery 2 weeks ago. Pt has been managing his pain at home with Oxycodone 5mg, Tylenol, and ice packs. Pt is wearing a sling. Pt has aditi seen in surgeon's clinic since surgery. Pt reports that he only has enough oxycodone to get him though the night. RN advised pt to call the surgeons office for a refill today before they close because they are the ones that are prescribing this medication for him. RN educated pt to go to the walk in clinic or the ED if his pain becomes severe. Pt verbalized understanding and agreement with the plan. documented in this encounter Plan of Treatment Upcoming Encounters Date Type Department Care Team (Late st Contact Info) Description 09/11/2024 10:30 AM EDT Office Visit [facility] [address] [place] [address] Sesar Pereyra MD [address] [place] [address] documented as of this encounter Visit Diagnoses Not on filedocumented in this encounter Additional Health Concerns Assessment Noted Time PHQ-9 Depression Total Score: 16 024 10:59 AM EDT documented as of this encounter Care Teams Pr Internship Relationship Specialty Start Date End Date Sesar Pereyra MD [address] [place] [address] PCP - General Internal Medicine 03/01/21 [facility] 03/22/24 documented as of this encounter
--- OUTSIDE RECORDS SUMMARY | 2024-07-11 14:36 | XMS_ITS | Encounter Summary ---
Author Organization [employer] Address [address] [facility] 7t [place] [address] Care Team Providers Care Polisher Numeral Name Role Phone Sesar Pereyra MD Primary Care Provider [phone] Encounter Details Date Type Department Care Team ([facility] st Contact Info) Description 07/10/2024 Telephone [facility] MED & PEDS [address] [place], [place] [phone] Sesar Pereyra MD [address] [place] [address] Social History Tobacco Use Types Packs/Day Years [...] * Telephone Encounter - Shilpa Godoy - 07/10/2024 11:38 AM EDT Tc from pt calling to inform medication amphetamine-dextroamphetamine (Adderall) 7.5 MG tablet was sent to the incorrect pharmacy. [facility] requested a transfer but was til to contact pcp office . Preferred pharmacy [facility] [address] - [address] Pt [facility] has been without meds. documented in this encounter Plan of Treatment Upcoming Encounters Date Type Department Care Team ([facility] st Contact Info) Description 09/11/2024 10:30 AM EDT Office Visit [facility] [address] [place] [address] Sesar Pereyra MD [address] [place] [address] documented as of this encounter Visit Diagnoses Not on filedocumented in this encounter Additional Health Concerns Assessment Noted Time PHQ-9 Depression Total Score: 16 024 10:59 AM EDT documented as of this encounter Care Teams Polisher Numeral Relationship Specialty Start Date End Date Sesar Pereyra MD [address] [place] [address] PCP - General Internal Medicine 03/01/21 [facility] 03/22/24 documented as of this encounter
--- OUTSIDE RECORDS SUMMARY | 2024-07-11 14:36 | XMS_ITS | Encounter Summary ---
Author Organization [employer] Address [address] [facility] 7t [place] [address] Care Team Providers Care Clean Up Person Name Role Phone Sesar Pereyra MD Primary Care Provider [phone] [phone] Encounter Details Date Type Department Care Team (Late st Contact Info) Description 07/11/2024 Orders Only GENERIC EXTERNAL DATA DEPARTMENT Provider, [...] Upcoming Encounters Date Type Department Care Team ([facility] st Contact Info) Description 09/11/2024 10:30 AM EDT Office Visit [facility] MED & PEDS [address] [place], [place] [phone] Sesar Pereyra MD [address] [place], [place] [phone] documented as of this encounter Procedures Procedure Name Priority Date/Time Associated Diagnosis Comments LACTIC ACID Routine 07/11/2024 11:39 AM EDT VENOUS BLOOD GAS Routine 07/11/2024 11:3 8 AM EDT HOLD LT BLUE - POSSIBLE COAG Routine 07/11/2024 11:38 AM EDT XR CHEST 1 VIEW Routine 07/11/2024 11:01 AM EDT documented in this encounter Results * (ABNORMAL) Lactic Acid (07/11/2024 11:39 AM EDT) Lactic Acid 2.3() 0.5 - 2.0 mmol/L [facility] Comment:Critical value for L ACTC: Results called to and read backby: DR REBOLLEDO Person calling: NEEL Date: 07-11-24 Time:1214 07/11/2024 11:3 9 AM EDT 07/11/2024 11:45 AM EDT us Generic External Data Provider LAB BLOOD ORDERAB LES Final Result [facility] [address] [place] [address] [phone] * HOLD LT BLUE - POSSIBLE COAG (07/11/2024 11:38 AM EDT) Hold Lt Blue - Possible Coag SEE NOTE [facility] Comment:Specimen will be hel d untested for 4 hours. Call Hematologyif testing is desired. 07/11/2024 11:3 8 AM EDT 07/11/2024 11:47 AM EDT us Generic External Data Provider LAB BLOOD ORDERAB LES Final Result Performing Organization Address [facility] Co de Phone Number [facility] [address] [place] [phone] * VENOUS BLOOD GAS (07/11/2024 11:38 AM EDT) VBG pH 7.40 7.32 - 7.43 [facility] Comment:METER #: [id number] additional_comment: CbHernaso VBG PCO2 41 mmHg [facility] Comment:METER #: [id number] additional_comment: CbHernaso VBG PO2 28 mmHg [facility] Comment:METER #: [id number] additional_comment: CbHernaso VBG Base Excess 1.4 mmol/L [facility] Comment:METER #: [id number] additional_comment: CbHernaso VBG HCO3 26 22 - 26 mmol/L [facility] Comment:METER #: [id number] additional_comment: CbHernaso O2 Sat, Garrick 39.0 % [facility] Comment:METER #: [id number] additional_comment: CbHernaso 07/11/2024 11:3 8 AM EDT 07/11/2024 11:41 AM EDT us Generic External Data Provider LAB BLOOD ORDERAB LES Final Result Performing Organization Address [facility] Co de Phone Number [facility] [address] [place] [address] [phone] * XR Chest 1 View (07/11/2024 11:01 AM EDT) Anatomical Region Laterality Modality Chest Radiographic Homa ging 07/11/2024 11:0 1 AM EDT Narrative 07/11/2024 12:14 PM EDT ? [facility] ?[address] ?[place] [address] ?XRay Report ? Signed ? Patient: Alex Nettles ?MR#: [id number] ?? [id number] ? : 1945 ?Acct:[id number] ? Age/Sex: 79 / M ?ADM Date: 07/11/24 ? Loc: HO.ED ? Attending Dr: ? Ordering Physician: Desirae Rebolledo MD ?? Date of Service: 07/11/24 ?? Procedure(s): XR chest 1V ?? Accession Number(s): [id number] ? cc: Desirae Rebolledo MD; Sesar Pereyra MD ? EXAMINATION: ?? XR CHEST ? CLINICAL INFORMATION: ?? Hypoxia ? COMPARISON: ?? 03/12/2024. ?? CT chest 03/18/2024. ? TECHNIQUE: ?? Frontal view of the chest was obtained. ? FINDINGS: ?? There is cardiomegaly. The hilar and mediastinal contours are normal. ? Lungs demonstrate patchy opacities in both lower lungs. No pneumothorax ?? or effusion. ? No focal osseous or soft tissue abnormality. ? XR/XR chest 1V ?? IMPRESSION: ?? 1. Patchy bibasilar pneumonia. ?? 2. Cardiomegaly. ? Electronically signed by: ??Jaquan Guillen MD ??07/11/2024 12:11 PM EDT RP ? Dictated By: ?Jaquan Guillen MD ? Signed By: ?<Electronically signed by Jaquan Guillen MD in OV> ?07/11/24 1211 ? DD/ 1101 ? TD/TT: 07/11/24 1202 ? Fisher Eel: ? Procedure Note Hernandez, Image - 07/11/[address] [address] XRay Report Signed Patient: Alex NettlesMR#: [id number] : 1945cct:[id number] Age/Sex: 79 / MADM Date: 07/11/24 Loc: HO.ED Attending Dr: Ordering Physician: Desirae Rebolledo MD Date of Service: 07/11/24 Procedure(s): XR chest 1V Accession Number(s): [id number] cc: Desirae Rebolledo MD; Sesar Pereyra MD EXAMINATION: XR CHEST CLINICAL INFORMATION: Hypoxia COMPARISON: 03/12/2024. CT chest 03/18/2024. TECHNIQUE: Frontal view of the chest was obtained. FINDINGS: There is cardiomegaly. The hilar and mediastinal contours are normal. Lungs demonstrate patchy opacities in both lower lungs. No pneumothorax or effusion. No focal osseous or soft tissue abnormality. XR/XR chest 1V IMPRESSION: 1. Patchy bibasilar pneumonia. 2. Cardiomegaly. Electronically signed by: Jaquan Guillen MD 07/11/2024 12:11 PM EDT Dictated By: Jaquan Guillen MD Signed By: <Electronically signed by Jaquan Guillen MD in OV> 07/11/24 1211 DD/ 1101 TD/TT: 07/11/24 1202 Fisher Eel: [facility] External Provider IMG XR PROCEDURES Edited Result - Final documented in this encounter Visit Diagnoses Not on filedocumented in this encounter Additional Health Concerns Assessment Noted Time PHQ-9 Depression Total Score: 16 024 10:59 AM EDT documented as of this encounter Care Teams Clean Up Person Relationship Specialty Start Date End Date Sesar Pereyra MD [address] [place] [address] PCP - General Internal Medicine 03/01/21 [facility] 03/22/24 documented as of this encounter
--- OUTSIDE RECORDS SUMMARY | 2024-07-11 14:36 | XMS_ITS | Encounter Summary ---
Author Organization [facility] Address [address] [place] [address] Care Team Providers Care Brakeshoe Repairer Name Role Phone Yolande Nicholas DO Primary Care Pro vider Unavailable Anuj Priest DO Primary Care Provider [facility], Pcp Primary Care Provider Unavailabl e Reason for Visit * Reason Onset Date Comments Faxed Order 02/14/2020 Encounter Details Date Type Department Care Team Description 02/14/2020 Telephone Adult Medicine [address] [address] Yolande Nicholas DO Faxed Order Social History [...] on filedocumented in this encounter Care Teams Brakeshoe Repairer Relationship Specialty Start Date End Date Yolande Nicholas DO PCP - General Internal Medicine 12/03/18 10/08/20 Anuj Priest DO PCP - General Internal Medicine 10/09/[address] [place] [address], Pcp PCP - General Internal Medicine 06/17/21 documented as of this encounter
--- OUTSIDE RECORDS SUMMARY | 2024-07-11 14:36 | XMS_ITS | Encounter Summary ---
Author Organization [employer] Address [address] [facility] 7t [place] [address] Care Team Providers Care Athletic Equipment Manager Name Role Phone Sesar Pereyra MD Primary Care Provider [phone] Encounter Details Date Type Department Care Team [...] [facility] [address] [place] [address] Sesar Pereyra MD [address] [place] [address] documented as of this encounter Procedures Procedure [...] Adult Primary Care ?[address] ? [place] [address] ?XRay Report ? Signed ? Patient: Tho,Alex ?MR#: [id number] ?? [id number] ? : 1945 ?Acct:[id number] ? Age/Sex: 79 / M ?ADM Date: //25 ? Loc: HO.HMGCX ? Attending Dr: Teresa Marie PA-C ? Ordering Physician: Teresa Marie PA-C ?? Date of Service: 06/19/24 ?? Procedure(s): XR shoulder LT min 2V ?? Accession Number(s): [id number] ? cc: Sesar Pereyra MD; Teresa Marie [...] ??06/19/2024 04:21 PM EST RP ?? Workstation: [id number] ? Dictated By: ?Jaquan Guillen MD ? Signed By: ?<Electronically signed by Jaquan Guillen MD in OV> ?06/19/24 1621 ? DD/ 1600 ? TD/TT: 06/19/24 1611 ? Communications Representative: ? Procedure Note Alonzo Ng - 06/19/2024 [facility] Adult Primary Care [address] [place] [address] XRay Report Signed Patient: Alex Nettles#: [id number] : 7Acct:[id number] Age/Sex: 79 / MADM Date: 06/19/24 Loc: HO.HMGCX Attending Dr: Teresa Marie PA-C Ordering Physician: Teresa Marie PA-C Date of Service: 06/19/24 Procedure(s): XR shoulder LT min 2V Accession Number(s): [id number] cc: Sesar Pereyra MD; Teresa Marie PA-C [...] 06/19/24 1621 DD/ 1600 TD/TT: 06/19/24 1611 Communications Representative: [facility] External Provider IMG XR PROCEDURES Final Result * Calcium (06/12/2024 12:09 PM EST) Calcium 9.1 8.4 - 10.2 mg/dL [facility] 06/12/2024 12:0 9 PM EST 06/12/2024 12:14 PM EST Generic External Data Provider LAB BLOOD ORDERAB LES Final Result [facility] [address] [place] [phone] * Creatinine, Serum (06/12/2024 12:09 PM EST) Creatinine, Serum 1.13 0.5 - 1.4 mg/dL [facility] Estimated Glomerular Filt Rate >60 [facility] Comment:Chronic Kidney Disea se: Estimated GFR < 60 mL/min/[id number] Kidney Disease: Estimated GFR < 15 mL/min/1.73m2 06/12/2024 12:0 9 PM EST 06/12/2024 12:14 PM EST us Generic External Data Provider LAB BLOOD ORDERAB LES Final Result Performing Organization Address [facility] Co la Phone Number [facility] [address] [place] [phone] * (ABNORMAL) BUN (Blood Urea Nitrogen) (06/12/2024 12:09 PM EST) Urea Nitrogen (BUN) 18(H) 9 - 16 mg/dL [facility] 06/12/2024 12:0 9 PM EST 06/12/2024 12:14 PM EST Generic External Data Provider LAB BLOOD ORDERAB LES Final Result Performing Organization Address City/[facility] Co de Phone Number [facility] [address] [place] [phone] * (ABNORMAL) Electrolyte Panel (06/12/2024 12:09 PM EST) Sodium 142 135 - 145 mmol/L [facility] Potassium 4.0 3.3 - 5.1 mmol/L [facility] Comment:Slight Hemolysis.Int erpret result with caution. Chloride 109(H) 96 - 108 mmol/L [facility] Carbon Dioxide 24 22 - 29 mmol/L [facility] Anion Gap 13 12 - 20 [facility] 06/12/2024 12:0 9 PM EST 06/12/2024 12:14 PM EST us Generic External Data Provider LAB BLOOD ORDERAB LES Final Result [facility] [address] [place] [address] [phone] documented in this encounter Visit Diagnoses Not on filedocumented in this encounter Additional Health Concerns Assessment Noted Time PHQ-9 Depression Total Score: 16 024 10:59 AM EDT documented as of this encounter Care Teams Athletic Equipment Manager Relationship Specialty Start Date End Date Sesar Pereyra MD [address] [place] [address] PCP - General Internal Medicine 03/01/21 [facility] 03/22/24 documented as of this encounter
--- OUTSIDE RECORDS SUMMARY | 2024-07-11 14:36 | XMS_ITS | Encounter Summary ---
Author Organization [facility] Address [address] [place] [address] Care Team Providers Care Command And Control Name Role Phone Yolande Nicholas DO Primary Care Pro vider Unavailable Anuj Priest DO Primary Care Provider [facility], Pcp Primary Care Provider Unavailabl e Reason for Visit * Reason Onset Date Comments Provider Call Back 01/29/2020 FYI Encounter Details Date Type Department Care Team Description 01/29/[address] [address] Yolande Nicholas DO Provider Call Back (FYI) [...] YES Reason for call back: transporting to [facility] today. Going to ER and hoping tohave him admitted today. Has consultation with Dr Ben Rodriguez, endovascular surgeon on 02-06-20 [place] Caller offered to speak with the nurse for assistance: YES Response: Patient offered to speak with nurse for assistance and patient agreed. Message forwarded to nurse. documented in this encounter Plan of Treatment Not on file documented as of this encounter Visit Diagnoses Not on filedocumented in this encounter Care Teams Command And Control Relationship Specialty Start Date End Date Yolande Nicholas DO PCP - General Internal Medicine 12/03/18 10/08/20 Anuj Priest DO PCP - General Internal Medicine 10/09/[address] [place] [address], Pcp PCP - General Internal Medicine 06/17/21 documented as of this encounter
--- OUTSIDE RECORDS SUMMARY | 2024-07-11 14:36 | XMS_ITS | Encounter Summary ---
Author Organization [employer] Address [address] [facility] 7t [place] [address] Care Team Providers Care Food Quality Technician Name Role Phone Sesar Pereyra MD Primary Care Provider [phone]- [phone] Encounter Details Date Type Department Care Team (Late st Contact Info) Description 07/10/2024 Orders Only [facility] MEDICINE [address] [place] [address] Sesar Pereyra MD [address] [place] [address] Memory disturbance (Primary Dx) Social History Tobacco [...] & Living Center st Contact Info) Description 09/11/2024 10:30 AM EDT Office Visit [facility] MED [facility] PEDS [address] [place] [address] Sesar Pereyra MD [address] [place] [address] documented as of this encounter Visit Diagnoses Diagnosis Memory disturbance- Primary Memory loss documented in this encounter Additional Health Concerns Assessment Noted Time PHQ-9 Depression Total Score: 16 024 10:59 AM EDT documented as of this encounter Care Teams Food Quality Technician Relationship Specialty Start Date End Date Sesar Pereyra MD [address] [place] [address] PCP - General Internal Medicine 03/01/[address] 03/22/[facility] documented as of this encounter
--- OUTSIDE RECORDS SUMMARY | 2024-07-11 14:36 | XMS_ITS | Encounter Summary ---
Author Organization [employer] Address [address] [facility] [address] [place] [address] Care Team Providers Care Stamp Analyst Name Role Phone Sesar Pereyra MD Primary Care Provider [phone]- [phone] Reason for Referral * Consultation (Routine) - Closed Specialty Diagnoses / Procedures Referred By Wander reynolds Referred To Contact Orthopaedic Surgery Diagnoses Low back pain at multiple sites Sesar Pereyra MD [address] [place] [address] Phone: tel: fax: [facility] [address] [place] [address] Phone: tel: Referral ID Status Reason Start Date Expiration Date V isits Requested Visits Authorized [id number] Closed Specialty Services Required 06/13/2024 06/13/2025 1 1 * Consultation (Routine) - Closed Specialty Diagnoses / Procedures Referred By Wander reynolds Referred To Contact Otolaryngology Diagnoses Tinnitus of right ear eSsar Pereyra MD [address] [place] [address] Phone: tel: fax: [facility] [address] Phone: tel: fax: Referral ID Status Reason Start Date Expiration Date V isits Requested Visits Authorized [id number] Closed Specialty Services Required 06/13/2024 06/13/2025 1 1 Reason for Visit * Reason Comments Follow-up Kidney stones Encounter Details Date Type Department Care Team ([facility] st Contact Info) Description 06/13/2024 1:00 PM EST Office Visit [facility] MED & PEDS [address] [place] [address] Sesar Pereyra MD [address] [place] [address] Kidney stone (Primary Dx); Primary hypertension; Low [...] in general. 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
--- OUTSIDE RECORDS SUMMARY | 2024-07-11 14:37 | XMS_ITS | Encounter Summary ---
Author Organization [facility] Address [address] [place] [address] Care Team Providers Care Global Sales Executive Name Role Phone Coleman Mccarthy MD Primary Care Provider Unavaila ble Ayo Carpio MD Primary Care Provider [phone] Annalee Jones MD Primary Care Provider Un available Yolande Nicholas DO Primary Care Pro vider Unavailable Anuj Priest DO Primary Care Provider [facility], Pcp Primary Care Provider Unavailabl e Encounter Details Date Type Department Care Team Description 05/19/2015 High Pressure Kettle Operator Report Medical Records [address] [place] [id number] Anuj Easton Social History Tobacco Use Types [...] on filedocumented in this encounter Care Teams Global Sales Executive Relationship Specialty Start Date End Date Coleman Mccarthy MD PCP - General Internal Medicine 05/07/14 07/18/16 Ayo Carpio MD [address] [place] [address] [id number] PCP - General Internal Medicine 07/19/16 01/05/17 Annalee Jones MD [address] [place] [address] PCP - General Internal Medicine 01/06/17 12/02/18 Yolande Nicholas, [address] [place] [address] PCP - General Internal Medicine 12/03/18 10/08/20 Anuj Priest DO [address] [place] [address] PCP - General Internal Medicine 10/09/20 06/16/21 [facility], Pcp [address] [place] [address] PCP - General Internal Medicine 06/17/21 documented as of this encounter
--- OUTSIDE RECORDS SUMMARY | 2024-07-11 14:37 | XMS_ITS | Encounter Summary ---
Author Organization [employer] [facility] Address [address] [place] [address] Care Team Providers Care Art Class Model Name Role Phone Ghassan Burciaga MD Primary Care Provider Unavail able Pierre Arevalo MD Primary Care Provider Judy vailable Gerson Dawson MD Primary Care Provider Unavail able [facility], Pcp Primary Care Provider Unavailabl e Coleman Mccarthy MD Primary Care Provider Unavaila Ayo Demarco MD Primary Care Provider [phone] Annalee Jones MD Primary Care Provider Un available Pascual Nicholasabela DO Primary Care Pro vider Unavailable Anuj Priest DO Primary Care Provider [facility], Pcp Primary Care Provider Unavailabl e Encounter Details Date Type Department Care Team Description 02/02/2009 Hospital Medical Records [address] [place] [address] Bacilio Ward MD Social History Tobacco Use [...] on filedocumented in this encounter Care Teams Art Class Model Relationship Specialty Start Date End Date Ghassan Burciaga MD PCP - General 07/24/00 05/06/13 Pierre Arevalo MD PCP - General Internal Medicine 05/07/13 4 Gerson Dawson MD PCP - General Internal Medicine 01/30/14 03/20/14 [facility], Pcp PCP - General Internal Medicine 03/21/14 05/06/14 Coleman Mccarthy MD PCP - General Internal Medicine 05/07/14 07/18/16 Ayo Carpio MD [address] [place], [place] [phone] PCP - General Internal Medicine 07/19/16 01/05/17 Annalee Jones MD [address] [place], [place] [phone] PCP - General Internal Medicine 01/06/17 12/02/18 Yolande Nicholas, DO [address] [place] [address] PCP - General Internal Medicine 12/03/18 10/08/20 Anuj Priest, [address] [place] [address] PCP - General Internal Medicine 10/09/20 06/16/21 [facility], Pcp PCP - General Internal Medicine 06/17/21 documented as of this encounter
--- OUTSIDE RECORDS SUMMARY | 2024-07-11 14:37 | XMS_ITS | Encounter Summary ---
Author Organization [facility] [employer] [facility] Address [address] [place] [address] Care Team Providers Care Photographic Intelligence Officer Name Role Phone Ayo Carpio MD Primary Care Provider [phone] Annalee Jones MD Primary Care Provider Un available Yolande Nicholas DO Primary Care Pro vider Unavailable Anuj Priest DO Primary Care Provider Judy [facility], Pcp Primary Care Provider Unavailabl e Encounter Details Date Type Department Care Team Description 12/13/2016 Business Communications Instructor Report Medical Records [address] [place] [address] Dhruv Garcia MD Social History Tobacco Use [...] on filedocumented in this encounter Care Teams Photographic Intelligence Officer Relationship Specialty Start Date End Date Ayo Carpio MD [address] [place] [address] PCP - General Internal Medicine 07/19/16 01/05/17 Annalee Jones MD [address] [place] [address] PCP - General Internal Medicine 01/06/17 12/02/18 Yolande Nicholas, DO [address] [place] [address] PCP - General Internal Medicine 12/03/18 10/08/20 Anuj Priest, [address] [place] [address] PCP - General Internal Medicine 10/09/20 06/16/21 [facility], [address] [address] PCP - General Internal Medicine 06/17/21 documented as of this encounter
--- OUTSIDE RECORDS SUMMARY | 2024-07-11 14:37 | XMS_ITS | Encounter Summary ---
Author Organization [employer] Address [address] [facility] 7t [place] [address] Care Team Providers Care Worm Sorter Name Role Phone Sesar Pereyra MD Primary Care Provider [phone] Encounter Details Date Type Department Care Team (Late st Contact Info) Description 04/02/2024 Orders Only [facility] [address] [place] [address] Provider, MD Jazmyn Social History Tobacco Use [...] Description 09/11/2024 10:30 AM EDT Office Visit [facility] CH[facility] MED & PEDS [address] [place] [address] Sesar Pereyra MD [address] [place] [address] documented as of this encounter Procedures Procedure [...] documented as of this encounter Care Teams Worm Sorter Relationship Specialty Start Date End Date Sesar Pereyra MD [address] [place] [address] PCP - General Internal Medicine [facility]/01[facility] documented as of this encounter
--- OUTSIDE RECORDS SUMMARY | 2024-07-11 14:37 | XMS_ITS | Encounter Summary ---
Author Organization [employer] Address [address] [facility] 7t [place] [address] Care Team Providers Care Anesthesiology Crna Name Role Phone Sesar Pereyra MD Primary Care Provider [phone] Reason for Visit * Reason Onset Date Comments Med Refill 04/26/2024 Encounter Details Date Type Department Care Team ([facility] st Contact Info) Description 04/26/2024 Telephone [facility] MEDICINE [address] [place] [address] Sesar Pereyra MD [address] [place] [address] Med Refill Social History Tobacco Use Types [...] 7.5 MG tablet To be sent to: [facility] - [place], [place] - [address] documented in this encounter Plan of Treatment Upcoming Encounters Date Type Department Care Team (Late st Contact Info) Description 09/11/2024 10:30 AM EDT Office Visit [facility] MED & PEDS [address] [place] [address] Sesar Pereyra MD [address] [place] [address] documented as of this encounter Visit Diagnoses Not on filedocumented in this encounter Additional Health Concerns Assessment Noted Time PHQ-9 Depression Total Score: 16 024 10:59 AM EDT documented as of this encounter Care Teams Anesthesiology Crna Relationship Specialty Start Date End Date Sesar Pereyra MD [address] [place] [address] PCP - General Internal Medicine 03/01/21 [facility] 03/22/24 documented as of this encounter
--- OUTSIDE RECORDS SUMMARY | 2024-07-11 14:37 | XMS_ITS | Encounter Summary ---
Author Organization [employer] Address [address] [facility] 7t [place] [address] Care Team Providers Care Filling Station Laborer Name Role Phone Sesar Pereyra MD Primary Care Provider [phone] Encounter Details Date Type Department Care Team ([facility] st Contact Info) Description 04/01/2024 Orders Only [facility] MED & PEDS [address] [place], [place] [phone] Sesar Pereyra MD [address] [place] [address] Essential hypertension (Primary Dx) Social History Tobacco [...] Encounters Date Type Department Care Team ([facility] st Contact Info) Description 09/11/2024 10:30 AM EDT Office Visit [facility] MED & PEDS [address] [place] [address] Sesar ePreyra MD [address] [place] [address] documented as of this encounter Visit Diagnoses Diagnosis Essential hypertension- Primary Unspecified essential hypertension documented in this encounter Additional Health Concerns Assessment Noted Time PHQ-9 Depression Total Score: 16 024 10:59 AM EDT documented as of this encounter Care Teams Filling Station Laborer Relationship Specialty Start Date End Date Sesar Pereyra MD [address] [place] [address] PCP - General Internal Medicine 03/01/21 [facility] 03/22/24 documented as of this encounter
--- OUTSIDE RECORDS SUMMARY | 2024-07-11 14:37 | XMS_ITS | Encounter Summary ---
Author Organization [facility] Address [address] [place] [address] Care Team Providers Care Welding Machine Assembler Name Role Phone Anuj Priest DO Primary Care Provider Judy vailable [facility], Pcp Primary Care Provider Unavailabl e Encounter Details Date Type Department Care Team Description 06/10/2021 Telephone Adult Medicine [facility] [address] [place] [address] Anuj Priest DO Social History Tobacco Use [...] on filedocumented in this encounter Care Teams Welding Machine Assembler Relationship Specialty Start Date End Date Anuj Priest DO PCP - General Internal Medicine 10/09/20 2 [facility], Pcp PCP - General Internal Medicine 06/17/21 documented as of this encounter
--- OUTSIDE RECORDS SUMMARY | 2024-07-11 14:37 | XMS_ITS | Clinical Summary ---
Author Organization [employer] Address [address] [place] [address] Care Team Providers Care Senior Health Consultant Name Role Phone Sesar Pereyra MD Primary Care Provider [phone] Allergies No known active allergies Medications clonazePAM [...] 25 Active amphetamine-dex troamphetamine (Adderall) 7.5 MG tabletIndicatio ns:Memory disturbance Take 1 tablet (7.5 mg) by mouth Once per day. 28 tablet 07/11/19 25 Active amphetamine-dex troamphetamine (Adderall) 7.5 MG tablet Take 1 tablet (7.5 mg) by mouth Once per day. 28 tablet 05/27/19 25 025 Discontinued(Re order (will not trigger notification to Pharmacy)) amphetamine-dex troamphetamine (Adderall) 7.5 MG tablet Take 1 tablet (7.5 mg) by mouth Once per day. 28 tablet 07/06/19 25 025 Discontinued(Re order (will not trigger [...] considered Sleep disorder 02/02/2015 Overview (01/22/2024): Saw [facility] and sleep on 01/15/2015: Dr. Johnson Likely DILLAN sleep study ordered. Given that he has RLS, He may have periodic limb movement disorder which can be checked for in the study. Check ferritin. Will await sleep study. Depression with anxiety 04/01/2014 Overview (06/16/2022): Dr. Pradhan at [facility]. Is going to establish care at [...] Sees this doctor once a year at [facility]. Follows up with this facility every 6 months. Pure hypercholesterolemia 07/24/2009 Thoracic aortic aneurysm (TAA) 03/11/2009 Overview (01/22/2024): IMO update Seen by [facility]. 4.[address] [...] Sony done [address] 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 07/14/2005 Overview (01/22/2024): Stent on right and fem- fem bypass on left IMO update Depressive disorder 07/14/2005 Alcohol abuse, in remission 06/19/2005 Encounters Date Type Department Care Team Description 07/11/2024 Orders Only GENERIC EXTERNAL DATA DEPARTMENT Provider, Generic External Data 07/10/2024 Orders Only [facility] [address] [place] [address] Sesar Pereyra MD Memory disturbance (Primary Dx) 07/10/2024 Telephone [facility] [address] [place] [address] Sesar Pereyra MD 07/09/2024 Telephone [facility] [address] [place] [address] Gracie Jewell, CLAUDIA NTTS OUTREACT CALL 07/04/2024 Refill [facility] [address] [place] [address] Sesar Pereyra MD 06/24/2024 Orders Only [facility] [address] [place] [address] Sesar Pereyra MD Paroxysmal atrial fibrillation (CMS/HCC) (Primary Dx) 06/21/2024 Telephone [facility] [address] [place] [address] Sesar Pereyra MD Medication Question 06/19/2024 Orders Only GENERIC EXTERNAL DATA DEPARTMENT Provider, Generic External Data 06/13/2024 1:00 PM EST Office Visit [facility] [address] [place] [address] Sesar Pereyra MD Kidney stone (Primary Dx); Primary hypertension; Low back pain at multiple sites; Tinnitus of right ear; Lower urinary tract symptoms 06/13/2024 Travel 06/12/2024 Orders Only GENERIC EXTERNAL DATA DEPARTMENT Provider, Generic External Data 05/30/[address] [address] Sesar Pereyra MD Lab Orders; Referral 05/30/[address] [address] Sesar Pereyra MD 05/28/[address] [address] Sesar Pereyra MD fyi 05/27/2024 Refill [facility] [address] [place] [address] eSsar Pereyra MD 05/23/[address] [address] Sesar Pereyra MD Medication Question 05/15/2024 Telephone [facility] [address] [place] [address] Sesar Pereyra MD 05/09/2024 Telephone [facility] [address] [place] [address] Verona Thompson RN 05/07/2024 9:15 AM EST Office Visit [facility] [address] [place] [address] Natasha Jiang MD Kidney stone (Primary Dx) 05/07/2024 Telephone [facility] [address] [place] [address] Natasha Jiang MD Medication Question 05/07/2024 Orders Only [facility] [address] [place] [address] Natasha Jiang MD 05/07/2024 Travel 05/06/2024 Telephone [facility] [address] [place] [address] Sesar Pereyra MD Nurse Triage 04/30/2024 Refill [facility] [address] [place] [address] Sesar Pereyra MD Longstanding persistent atrial fibrillation (CMS/HCC); PVD (peripheral vascular disease) (CMS/HCC) 04/29/2024 Orders Only [facility] [address] [place] [address] Sesar Pereyra MD Closed nondisplaced fracture of acromial end of right clavicle, initial encounter 04/29/2024 Telephone [facility] [address] [place] [address] Sesar Pereyra MD Nurse Triage 04/28/2024 Refill [facility] [address] [place] [address] Sesar Pereyra MD 04/26/2024 Refill [facility] [address] [place] [address] Sesar Pereyra MD Closed nondisplaced fracture of acromial end of right clavicle, initial encounter 04/26/[address] [address] Sesar Pereyra MD Med Refill 04/18/2024 Refill [facility] [address] [place] [address] Loyda Jacobson, CLAUDIA Essential hypertension; Closed nondisplaced fracture of acromial end of right clavicle, initial encounter 04/18/[address] [address] Sesar Pereyra MD Med Refill from Last [...] Upcoming Encounters Date Type Department Care Team ([facility] st Contact Info) Description 09/11/2024 10:30 AM EDT Office Visit [facility] [address] [place] [address] Sesar Pereyra MD [address] [place] [address] Health Maintenance Due Date Last Done Comments Alcohol/Substance Use Screening 1959 RSV Patients and Patients Aged 60 years [...] patient's age to complete this topic Hepatitis A Vaccines Aged Out No long er eligible [...] LACTIC ACID Routine 07/11/2024 11:39 AM EDT HOLD LT BLUE - POSSIBLE COAG Routine 07/11/2024 11:38 AM EDT VENOUS BLOOD GAS Routine 07/11/2024 11:3 8 AM EDT XR CHEST 1 VIEW Routine 07/11/2024 11:01 AM EDT FL GUIDANCE IN OR Routine 06/21/2024 5:5 [...] Recently Relevant to Health Maintenance Results * (ABNORMAL) Lactic Acid (07/11/2024 11:39 AM EDT) Lactic Acid 2.3(HH) 0.5 - 2.0 mmol/L [facility] Comment:Critical value for L ACTC: Results called to and read backby: DR THAYER Person calling: NEEL Date: 07-11-24 Time:1214 07/11/2024 11:3 9 AM EDT 07/11/2024 11:45 AM EDT us Generic External Data Provider LAB BLOOD ORDERAB LES Final Result [facility] [address] [place] [phone] * VENOUS BLOOD GAS (07/11/2024 11:38 AM EDT) Pathologist [facility] VBG pH 7.40 7.32 - 7.43 [facility] Comment:METER #: [id number] additional_comment: CbHernaso VBG PCO2 41 mmHg [facility] Comment:METER #: [id number] additional_comment: CbHernaso VBG PO2 28 mmHg [facility] Comment:METER #: [id number] additional_comment: CbHernaso VBG Base Excess 1.4 mmol/L [facility] Comment:METER #: [id number] additional_comment: CbHernaso VBG HCO3 26 22 - 26 mmol/L [facility] Comment:METER #: [id number] additional_comment: CbHernaso O2 Sat, Garrick 39.0 % [facility] Comment:METER #: [id number] additional_comment: CbHernaso 07/11/2024 11:3 8 AM EDT 07/11/2024 11:41 AM EDT us Generic External Data Provider LAB BLOOD ORDERAB LES Final Result Performing Organization Address [facility] de Phone Number [facility] [address] [place] [address] [phone] * HOLD LT BLUE - POSSIBLE COAG (07/11/2024 11:38 AM EDT) Hold Lt Blue - Possible Coag SEE NOTE [facility] Comment:Specimen will be hel d untested for 4 hours. Call Hematologyif testing is desired. 07/11/2024 11:3 8 AM EDT 07/11/2024 11:47 AM EDT us Generic External Data Provider LAB BLOOD ORDERAB LES Final Result Performing Organization Address [facility] de Phone Number [facility] [address] [place] [address] [phone] * XR Chest 1 View (07/11/2024 11:01 AM EDT) Anatomical Region Laterality Modality Chest Radiographic Homa ging 07/11/2024 11:0 1 AM EDT Narrative 07/11/2024 12:14 PM EDT ? [facility] ?[address] ?[place] [address] ?XRay Report ? Signed ? Patient: Royaki,Alex ?MR#: [id number] ?? [id number] ? : 1945 ?Acct:[id number] ? Age/Sex: 79 / M ?ADM Date: 07/11/24 ? Loc: HO.ED ? Attending Dr: ? Ordering Physician: Desirae Thayer MD ?? Date of Service: 07/11/24 ?? Procedure(s): XR chest 1V ?? Accession Number(s): [id number] ? cc: Desirae Thayer MD; Sesar Pereyra MD ? EXAMINATION: ?? [...] DD/ 1101 ? TD/TT: 07/11/24 1202 ? Insulation Batting Machine Operator: ? Procedure Note Donotuseinterpreter, Image - 07/11/[address] [address] XRay Report Signed Patient: Alex NettlesMR#: [id number] : 1945cct:[id number] Age/Sex: 79 / MADM Date: 07/11/24 Loc: HO.ED Attending Dr: Ordering Physician: Desirae Thayer MD Date of Service: 07/11/24 Procedure(s): XR chest 1V Accession Number(s): [id number] cc: Desirae Thayer MD; Sesar Pereyra MD EXAMINATION: XR CHEST [...] 07/11/24 1211 DD/ 1101 TD/TT: 07/11/24 1202 Insulation Batting Machine Operator: us [facility] External Provider IMG XR PROCEDURES Edited Result - Final * FL Guidance in OR (06/21/2024 5:50 PM EST) Anatomical Region Laterality Modality X-Ray Angiograph y 06/21/2024 5:50 PM EST Narrative 06/24/2024 8:13 AM EST ? [facility] ?[address] ?[place], [place] [address] ? Fluoroscopy Report ? Signed ? Patient: Alex Nettles ?MR#: [id number] ?? [id number] ? : 1945 ?Acct:[id number] ? Age/Sex: 79 / M ?ADM Date: 06/19/24 ? Loc: HO.S3 ?363-2 ? Attending Dr: Tania Bernabe SLACKLINE OPERATOR ? Ordering Physician: Royce Kothari MD ?? Date of Service: 06/21/24 ?? Procedure(s): FL guidance in OR ?? Accession Number(s): [id number] ? cc: Sesar Pereyra MD; Royce Kothari [...] Hendrickson MD in OV> ?06/24/24 0810 ? DD/DT: 06/21/ 1750 ? TD/TT: 06/21/24 1750 ? Insulation Batting Machine Operator: ? Procedure Note Donotuseinterpreter, Image - 06/24/[address] [address] Fluoroscopy Report Signed Patient: Ronald Nettles#: [id number] : 1945cct:[id number] Age/Sex: 79 / MADM Date: 06/19/24 Loc: .S3 363-[address]: Tania Bernabe SLACKLINE OPERATOR Ordering Physician: Royce Kothari MD Date of Service: 06/21/24 Procedure(s): FL guidance in OR Accession Number(s): [id number] cc: Sesar Pereyra MD; Royce Kothari MD [...] Anuj Hendrickson MD 06/24/2024 08:10 AM EST Dictated By: Anuj Hendrickson MD Signed By: <Electronically signed by Anuj Hendrickson MD in OV> 06/24/24 0810 DD/ 1750 TD/TT: 06/21/24 175 Insulation Batting Machine Operator: us [facility] External Provider IMG IR PROCEDURES Final Result * CT Humerus (06/19/2024 8:00 PM EST) Anatomical Region Laterality Modality Computed Tomogra phy 06/19/2024 8:00 PM EST Narrative 06/19/2024 8:02 PM EST ? [facility] [facility] ?[address] ?[place] [address] ? CT Scan Report ? Signed ? Patient: Prawlucki,Alex ?MR#: [id number] ?? [id number] ? : 1945 ?Acct:[id number] ? Age/Sex: 79 / M ?ADM Date: 06/19/24 ? Loc: HO.ED ? Attending Dr: ? Ordering Physician: Angela Moura MD ?? Date of Service: 06/19/24 ?? Procedure(s): CT humerus LT wo IV con ?? Accession Number(s): [id number] ? cc: Sesar Pereyra MD; Angela Moura MD ? Report Number: ?? [id number]: Total DLP = ??192.00 mGy-cm ? CLINICAL [...] of the dorsal margin of the glenoid. Gyolgozo-pq-mzfua ?? 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 ?? 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 ?? Please refer to separate report for x-rays of the partially included elbow. ?? Mild imaged rib deformities in the syqtw-ac-zfdb appear old/chronic. ? Impression: ?? 1. Anterior [...] ? DD/ 99 ? TD/TT: 06/19/241999 ? Insulation Batting Machine Operator: ? Procedure Note Donotuseinterpreter, Image - 06/20/[address] [address] [address] Scan Report Signed Patient: Ronald Nettles#: [id number] : 1945cct:[id number] Age/Sex: 79 / MADM Date: 06/19/24 Loc: HO.ED Attending Dr: Ordering Physician: Angela Moura MD Date of Service: 06/19/24 Procedure(s): CT humerus LT wo IV con Accession Number(s): [id number] cc: Sesar Pereyra MD; Angela Moura MD Report Number: [id number]: Total DLP = 192.00 mGy-cm CLINICAL HISTORY: [...] of the dorsal margin of the glenoid. Joofwuqp-xn-kuqdy effusion with lipohemarthrosis of the left glenohumeral joint. 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 Please refer to separate report for x-rays of the partially includedelbow. Mild imaged rib deformities in the gatsi-rf-ocje appear old/chronic. Impression: 1. Anterior dislocation of [...] in OV> 06/19/242001 DD/ 99 TD/TT: 06/19/241999 Insulation Batting Machine Operator: [facility] External Provider IMG CT PROCEDURES Final Result * (ABNORMAL) CBC auto differential (06/19/2024 7:57 PM EST) White Blood Count 11.9(H) 4.8 - 10.8 X10*3/uL [facility] Red Blood Count 4.64 4.60 - 5.80 X10*6/uL [facility] Hemoglobin 14.3 14.0 - 18.0 g/dl [facility] Hematocrit 42.9 42.0 - 52.0 % [facility] Mean Corpuscular Volume 92.5 80.0 - 98.0 fL [facility] Mean Corpuscular Hemoglobin 30.8 27.0 - 33.0 pg [facility] Mean Corpuscular HGB Conc 33.3 31.0 - 36.0 g/dl [facility] Red Cell Distribution Width 14.4 11.0 - 16.0 % [facility] Platelet Count 238 160 - 400 X10*3/uL [facility] Mean Platelet Volume 9.9 9.4 - 12.4 fL [facility] Neutrophils Percent Auto 83.9(H) 45 - 73 % [facility] Imm Gran Pct Auto 0.3 0.0 - 0.4 % [facility] Lymphocytes Percent Auto 7.1(L) 20 - 40 % [facility] Monocytes Percent Auto 8.1 2 - 11 % [facility] Eosinophils Percent Auto 0.2 0 - 4 % [facility] Basophils Percent Auto 0.4 0 - 2 % [facility] NRBC Pct Auto 0.0 0.0 - 0.2 /100WBC [facility] Neutrophils Absolute Auto 10.0(H) 2.0 - 8.3 x10*3/uL [facility] Imm Gran Abs Auto 0.04(H) 0.00 - 0.03 X10*3/uL [facility] Lymphocytes Absolute Auto 0.9(L) 1.2 - 4.9 X10*3/uL [facility] Monocytes Absolute Auto 1.0 0.1 - 1.2 X10*3/uL [facility] Eosinophils Absolute Auto 0.0 0.0 - 0.4 X10*3/uL [facility] Basophils Absolute Auto 0.1 0.0 - 0.2 X10*3/uL [facility] NRBC Abs Auto 0.000 0.0 - 0.012 X10*3/uL [facility] 06/19/2024 7:57 PM EST 06/19/2024 8:05 PM EST Generic External Data Provider LAB BLOOD ORDERAB LES Edited Result - Final Performing Organization Address City/[facility]/ZIP Co de Phone Number [facility] [address] [place] [phone] * (ABNORMAL) Prothrombin Time-INR (06/19/2024 7:57 PM EST) Prothrombin Time 16.0(H) 10.9 - 12.4 SEC [facility] INTERNATIONAL NORM RATIO 1.4(H) 0.9 - 1.1 [facility] Comment:INTERNATIONAL NORMAL IZED RATIO (INR) [...] ORDERAB LES Final Result Performing Organization Address [facility] Co de Phone Number [facility] [address] [place] [phone] * XR Elbow 3+ Views Left (06/19/2024 7:16 PM EST) Anatomical Region Laterality Modality Upper Extremities, Elbow Left Radiogr aphic Imaging 06/19/2024 7:16 PM EST Narrative 06/19/2024 7:18 PM EST ? [facility] ?[address] ?[place] [address] ?XRay Report ? Signed ? Patient: Alex Nettles ?MR#: [id number] ?? [id number] ? : 1945 ?Acct:[id number] ? Age/Sex: 79 / M ?ADM Date: 06/19/24 ? Loc: HO.ED ? Attending Dr: ? Ordering Physician: Angela Moura MD ?? Date of Service: 06/19/24 ?? Procedure(s): XR elbow LT min 3V ?? Accession Number(s): [id number] ? cc: Sesar Pereyra MD; Angela Moura [...] ? DD/ 15 ? TD/TT: 06/19/241915 ? Insulation Batting Machine Operator: ? Procedure Note Alonzo Ng - 06/19/[address] [place] [address] XRay Report Signed Patient: Alex Nettles#: [id number] : 7Acct:[id number] Age/Sex: 79 / MADM Date: 06/19/24 Loc: HO.ED Attending Dr: Ordering Physician: Angela Moura MD Date of Service: 06/19/24 Procedure(s): XR elbow LT min 3V Accession Number(s): [id number] cc: Sesar Pereyra MD; Angela Moura MD [...] in OV> 06/19/241916 DD/ 15 TD/TT: 06/19/241915 Insulation Batting Machine Operator: [facility] External Provider IMG XR PROCEDURES Final Result * CT Head w/o Contrast (06/19/2024 7:12 PM EST) Anatomical Region Laterality Modality Head, Neck Computed Tomogra phy 06/19/2024 7:12 PM EST Narrative 06/19/2024 7:14 PM EST ? [facility] ?[address] ?[place] [address] ? CT Scan Report ? Signed ? Patient: Prawismaelki,Alex ?MR#: [id number] ?? [id number] ? : 1945 ?Acct:[id number] ? Age/Sex: 79 / M ?ADM Date: 02/19/25 ? Loc: HO.ED ? Attending Dr: ? Ordering Physician: Lonny Delgado ?? Date of Service: 06/19/24 ?? Procedure(s): CT head/brain wo IV con ?? Accession Number(s): [id number] ? cc: Sesar Pereyra MD; Lonny Delgado ? Report Number: ?? [id number]: Total DLP = ??652.00 mGy-cm ? CLINICAL [...] document has been electronically signed by: Franko Rutherfodr MD on ?? 06/19/2024 19:12:47 ? Dictated By: ?Franko Rutherford MD ? Signed By: ?<Electronically signed by Franko Rutherford MD in OV> ? 06/19/241912 ? DD/ 11 ? TD/TT: 06/19/241911 ? Insulation Batting Machine Operator: ? Procedure Note Hernandez, Image - 06/19/[address] [place] [address] [address] Scan Report Signed Patient: Alex Nettles#: [id number] : 1945cct:[id number] Age/Sex: 79 / MADM Date: 06/19/24 Loc: HO.ED Attending Dr: Ordering Physician: Lonny Delgado Date of Service: 06/19/24 Procedure(s): CT head/brain wo IV con Accession Number(s): [id number] cc: Sesar Pereyra MD; Lonny Delgado Report Number: [id number]: Total DLP = 652.00 mGy-cm CLINICAL HISTORY: [...] in OV> 06/19/241912 DD/ 11 TD/TT: 06/19/241911 Insulation Batting Machine Operator: [facility] External Provider IMG CT PROCEDURES Final Result * Lipase (06/19/2024 6:17 PM EST) Lipase 17 8 - 78 U/L [facility] 06/19/2024 6:17 PM EST 06/19/2024 6:19 PM EST Generic External Data Provider LAB BLOOD ORDERAB LES Final Result [facility] [address] [place] [phone] * (ABNORMAL) Comprehensive Metabolic Panel (06/19/2024 6:17 PM EST) Sodium 142 135 - 145 mmol/L [facility] Potassium 3.8 3.3 - 5.1 mmol/L [facility] Comment:Slight Hemolysis.Int erpret result with caution. Chloride 109(H) 96 - 108 mmol/L [facility] Carbon Dioxide 23 22 - 29 mmol/L [facility] Anion Gap 14 12 - 20 [facility] Urea Nitrogen (BUN) 13 9 - 16 mg/dL [facility] Creatinine, Serum 1.11 0.5 - 1.4 mg/dL [facility] Creatinine Clr Calc Pharmacy 72.1 [facility] Comment:eGFR (calculated fro m the MDRD study equation) and eCrCl(calculated from the Cockcroft-Gault equation) are based ondifferent parameters and may not yield comparable results.If eCrCl result is absurd, please check patient'sheight/weight. Estimated Glomerular Filt Rate >60 [facility] Comment:Chronic Kidney Disea se: Estimated GFR < 60 mL/min/1.29o6Mywatd Kidney Disease: Estimated GFR < 15 mL/min/1.73m2 Glucose 92 60 - 115 mg/dL [facility] Calcium 9.1 8.4 - 10.2 mg/dL [facility] Bilirubin, Total 0.5 0.0 - 1.0 mg/dL [facility] Aspartate Amino Transferase 27 5 - 37 U/L [facility] Comment:Slight Hemolysis.Int erpret result with caution. Alanine Aminotransferase 14 0 - 40 U/L [facility] Total Protein 7.7 6.5 - 8.0 g/dL [facility] Albumin Level 4.1 3.5 - 5.0 g/dL [facility] Alkaline Phosphatase 119(H) 39 - 117 U/L [facility] 06/19/2024 6:17 PM EST 06/19/2024 6:19 PM EST us Generic External Data Provider LAB BLOOD ORDERAB LES Final Result [facility] [address] [place] [address] [phone] * XR Shoulder 2+ Views Left (06/19/2024 4:00 PM EST) Anatomical Region Laterality Modality Upper Extremities, Shoulder Left Radi ographic Imaging 06/19/2024 4:00 PM EST Narrative 06/19/2024 4:23 PM EST ? [facility] ?[address] ? [place] [address] ?XRay Report ? Signed ? Patient: Prawismaelki,Alex ?MR#: [id number] ?? [id number] ? : 1945 ?Acct:[id number] ? Age/Sex: 79 / M ?ADM Date: 06/19/24 ? Loc: HO.HMGCX ? Attending Dr: Teresa Marie PA-C ? Ordering Physician: Teresa Marie PA-C ?? Date of Service: 06/19/24 ?? Procedure(s): XR shoulder LT min 2V ?? Accession Number(s): [id number] ? cc: Sesar Pereyra MD; Teresa Marie [...] DD/ 1600 ? TD/TT: 06/19/24 1611 ? Insulation Batting Machine Operator: ? Procedure Note Hernandez, Alonzo - 06/19/2024 [facility] [address] [place] [address] XRay Report Signed Patient: Alex Nettles#: [id number] : 1945cct:[id number] Age/Sex: 79 / MADM Date: 06/19/24 Loc: HO.HMGCX Attending Dr: Teresa Marie PA-C Ordering Physician: Teresa Marie PA-C Date of Service: 06/19/24 Procedure(s): XR shoulder LT min 2V Accession Number(s): [id number] cc: Sesar Pereyra MD; Teresa Marie PA-C [...] 06/19/24 1621 DD/ 1600 TD/TT: 06/19/24 1611 Insulation Batting Machine Operator: [facility] External Provider IMG XR PROCEDURES Final Result * Creatinine, Serum (06/12/2024 12:09 PM EST) Creatinine, Serum 1.13 0.5 - 1.4 mg/dL [facility] Estimated Glomerular Filt Rate >60 [facility] Comment:Chronic Kidney Disea se: Estimated GFR < 60 mL/min/1.77n7Wjugrw Kidney Disease: Estimated GFR < 15 mL/min/1.73m2 06/12/2024 12:0 9 PM EST 06/12/2024 12:14 PM EST us Generic External Data Provider LAB BLOOD ORDERAB LES Final Result Performing Organization Address [facility] Co de Phone Number [facility] [address] [place] [phone] * (ABNORMAL) BUN (Blood Urea Nitrogen) (06/12/2024 12:09 PM EST) Urea Nitrogen (BUN) 18(H) 9 - 16 mg/dL [facility] 06/12/2024 12:0 9 PM EST 06/12/2024 12:14 PM EST Generic External Data Provider LAB BLOOD ORDERAB LES Final Result Performing Organization Address [facility] Phone Number [facility] [address] [place] [phone] * Calcium (06/12/2024 12:09 PM EST) Calcium 9.1 8.4 - 10.2 mg/dL [facility] 06/12/2024 12:0 9 PM EST 06/12/2024 12:14 PM EST Generic External Data Provider LAB BLOOD ORDERAB LES Final Result Performing Organization Address [facility] de Phone Number [facility] [address] [place] [phone] * (ABNORMAL) Electrolyte Panel (06/12/2024 12:09 PM EST) Sodium 142 135 - 145 mmol/L [facility] Potassium 4.0 3.3 - 5.1 mmol/L [facility] Comment:Slight Hemolysis.Int erpret result with caution. Chloride 109(H) 96 - 108 mmol/L [facility] Carbon Dioxide 24 22 - 29 mmol/L [facility] Anion Gap 13 12 - 20 [facility] 06/12/2024 12:0 9 PM EST 06/12/2024 12:14 PM EST us Generic External Data Provider LAB BLOOD ORDERAB LES Final Result [facility] [address] [place] [phone] [phone] * XR KUB and Upright 2 Views (05/07/2024 10:21 AM EST) Anatomical Region Laterality Modality Radiographic Homa ging 05/07/2024 10:2 1 AM EST Narrative 05/07/2024 10:48 AM EST ? [facility] ?[address] ?[place] [address] ?XRay Report ? Signed ? Patient: JocelynescoobyAlex ?MR#: [id number] ?? [id number] ? : 1945 ?Acct:[id number] ? Age/Sex: 79 / M ?ADM Date: 05/07/24 ? Loc: HO.XRAY ? Attending Dr: Natasha Jiang MD ? Ordering Physician: Natasha Jiang MD ?? Date of Service: 05/07/24 ?? Procedure(s): XR KUB ?? Accession Number(s): [id number] ? cc: Sesar Pereyra MD; Natasha Jiang [...] DD/ 1021 ? TD/TT: 05/07/24 1040 ? Insulation Batting Machine Operator: ? Procedure Note Doncathieter, Image - 05/07/[address] [address] XRay Report Signed Patient: Alex NettlesMR#: [id number] : [id number]:[id number] Age/Sex: 79 / MADM Date: 05/07/24 Loc: HO.XRAY Attending Dr: Natasha Jiang MD Ordering Physician: Natasha Jiang MD Date of Service: 05/07/24 Procedure(s): XR KUB Accession Number(s): [id number] cc: Sesar Pereyra MD; Natasha Jiang MD [...] 05/07/24 1045 DD/ 1021 TD/TT: 05/07/24 1040 Insulation Batting Machine Operator: Natasha Jiang MD IMG XR PROCEDURES Edited Result - Final * (ABNORMAL) POCT Urinalysis (05/07/2024 9:33 AM EST) Pathologist [facility] Color, UA Brown Clarity, UA Turbid Glucose, [...] C Ab (07/19/2023 11:42 AM EDT) Pathologist [facility] Hepatitis C Antibody Nonreactive Nonreactive [facility] Comment:Antibodies to HCV no t detected; does not exclude early acuteHCV infection. Blood Venous blood specimen / Unknown 07/19/2023 11:42 AM EDT 07/19/2023 2:25 PM EDT Sesar Pereyra MD LAB BLOOD ORDERABLES Final Result [facility] [address] [place] [phone] * (ABNORMAL) LIPID PANEL, STANDARD (03/05/2021 9:16 AM EDT) Pathologist [facility] Chol/HDLC Ratio 4.1 <5.0 (calc) [facility] [...] ?? Ulisses MCDANIEL et al. MANDEEP. 2013;310(19): 2140-2216 ?? (http://Retroficiency[employer]/faq/LRS269) Non-HDL Cholesterol 104 <130 mg/dL (calc) [facility] Comment: For patients with diabetes plus 1 major ASCVD risk ?? factor, treating to a non-HDL-C goal of <100 mg/dL ?? (LDL-C of <70 mg/dL) is considered a therapeutic ?? option. Triglycerides 232(H) <150 mg/dL [facility] Comment: ?? If a non-fasting specimen was collected, consider repeat triglyceride testing on a fasting specimen if clinically indicated. ?? Estela et al. J. of Clin. Lipidol. 2015;9:129-169. ?? 03/05/2021 9:16 AM EDT us Sesar Pereyra MD LAB BLOOD ORDERABLES Final Result [facility] [address] from Last 3 Months or Most Recently Relevant to Health Maintenance Insurance [employer] MEDICARE REPLACEMENT HS FULL Care Teams Senior Health Consultant Relationship Specialty Start Date End Date Sesar Pereyra MD [address] [place] [id number] PCP - General Internal Medicine 03/01/21 [facility] 03/22/24
--- OUTSIDE RECORDS SUMMARY | 2024-07-11 14:37 | XMS_ITS | Encounter Summary ---
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 Medical Records [address] [place] [address] Abstract, Provider Social History Tobacco Use Types [...] on filedocumented in this encounter Care Teams Sorority Supervisor Relationship Specialty Start Date End Date Coleman Mccarthy MD PCP - General Internal Medicine 05/07/14 07/18/16 Ayo Carpio MD [address] [place] [address] [phone] PCP - General Internal Medicine 07/19/16 01/05/17 Annalee Jones MD [address] [place] [address] PCP - General Internal Medicine 01/06/17 12/02/18 Yolande Nicholas, [address] [place] [address] PCP - General Internal Medicine 12/03/18 10/08/20 Anuj Priest DO [address] [place] [address] PCP - General Internal Medicine 10/09/20 06/16/21 [facility], Pcp [address] [place] [address] PCP - General Internal Medicine 06/17/21 documented as of this encounter
--- OUTSIDE RECORDS SUMMARY | 2024-07-11 14:37 | XMS_ITS | Encounter Summary ---
Author Organization [facility] Address [address] [place] [address] Care Team Providers Care Coding Support Specialist Name Role Phone Annalee Jones MD Primary Care Provider Un available Yolande Nicholas DO Primary Care Pro vider Unavailable Anuj Priest DO Primary Care Provider Judy vailable [facility], Pcp Primary Care Provider Unavailabl e Encounter Details Date Type Department Care Team Description 08/24/2017 Release of Information Medical Records [address] [place] [address] Abstract, Provider Social History Tobacco Use Types [...] on filedocumented in this encounter Care Teams Coding Support Specialist Relationship Specialty Start Date End Date Annalee Jones MD PCP - General Internal Medicine 01/06/17 9 Yolande Nicholas DO PCP - General Internal Medicine 12/03/18 10/08/20 Anuj Priest DO PCP - General Internal Medicine 10/09/20 2 J[facility], Pcp PCP - General Internal Medicine 06/17/21 documented as of this encounter
--- OUTSIDE RECORDS SUMMARY | 2024-07-11 14:37 | XMS_ITS | Encounter Summary ---
Author Organization [facility] Address [address] [place] [address] Care Team Providers Care Spray Gunner Name Role Phone Ayo Carpio MD Primary Care Provider [phone] Annalee Jones MD Primary Care Provider Un available Yolande Nicholas DO Primary Care Pro vider Unavailable Anuj Priest DO Primary Care Provider Judy [facility], Pcp Primary Care Provider Unavailabl e Encounter Details Date Type Department Care Team Description 10/19/2016 Orders Only Adult Medicine [address] [phone] Ayo Carpio MD [address] [place] [address] [phone] Lung nodule (Primary Dx) Social History Tobacco [...] nodule documented in this encounter Care Teams Spray Gunner Relationship Specialty Start Date End Date Ayo Carpio MD [address] [place] [address] [phone] PCP - General Internal Medicine 07/19/16 01/05/17 Annalee Jones MD [address] [place] [address] PCP - General Internal Medicine 01/06/17 12/02/18 Yolande Nicholas, [address] [place] [address] PCP - General Internal Medicine 12/03/18 10/08/20 Anuj Priest DO [address] [place] [address] PCP - General Internal Medicine 10/09/20 06/16/21 [facility], Pcp [address] [place] [address] PCP - General Internal Medicine 06/17/21 documented as of this encounter
--- OUTSIDE RECORDS SUMMARY | 2024-07-11 14:37 | XMS_ITS | Encounter Summary ---
Author Organization [facility] Address [address] [place] [address] Care Team Providers Care Computer Systems Architect Name Role Phone Ghassan Burciaga MD Primary Care Provider Unavail able Pierre Arevalo MD Primary Care Provider Judy vailable Gerson Dawson MD Primary Care Provider Unavail able [facility], Pcp Primary Care Provider Unavailabl e Coleman Mccarthy MD Primary Care Provider Unavaila Ayo Demarco MD Primary Care Provider [phone] Annlaee Jones MD Primary Care Provider Un available Pascual Nicholasabela DO Primary Care Pro vider Unavailable Anuj Priest DO Primary Care Provider Judy [facility], Pcp Primary Care Provider Unavailabl e Encounter Details Date Type Department Care Team Description 01/27/2009 Hospital Medical Records [address] [place] [address] Bacilio Ward MD Social History Tobacco Use [...] filedocumented in this encounter Care Teams Computer Systems Architect Relationship Specialty Start Date End Date Ghassan Burciaga MD PCP - General 07/24/00 05/06/13 Pierre Arevalo MD PCP - General Internal Medicine 05/07/13 4 Gerson Dawson MD PCP - General Internal Medicine 01/30/14 03/20/14 [facility], Pcp PCP - General Internal Medicine 03/21/14 05/06/14 Coleman Mccarthy MD PCP - General Internal Medicine 05/07/14 07/18/16 Ayo Carpio MD [address] [place], [place] [phone] PCP - General Internal Medicine 07/19/16 01/05/17 Annalee Jones MD [address] [place], [place] [phone] PCP - General Internal Medicine 01/06/17 12/02/18 Yolande Nicholas, DO [address] [place] [address] PCP - General Internal Medicine 12/03/18 10/08/20 Anuj Priest, [address] [place] [address] PCP - General Internal Medicine 10/09/20 06/16/21 [facility], Pcp PCP - General Internal Medicine 06/17/21 documented as of this encounter
--- OUTSIDE RECORDS SUMMARY | 2024-07-11 14:37 | XMS_ITS | Encounter Summary ---
Author Organization [employer] Address [address] [facility] [address] [place] [address] Care Team Providers Care Tyre Builder Name Role Phone Sesar Pereyra MD Primary Care Provider [phone] Reason for Visit * Reason Onset Date Comments Med Refill 07/04/2024 Encounter Details Date Type Department Care Team (Late st Contact Info) Description 07/04/2024 Refill [facility] [address] [place] [address] Sesar Pereyra MD [address] [place] [address] Social History Tobacco Use Types Packs/Day Years [...] 7.5 MG tablet To be sent to: [id number] - [place], [place] - [address] [facility] [address] documented in this encounter Plan of Treatment Upcoming Encounters Date Type Department Care Team (Late st Contact Info) Description 09/11/2024 10:30 AM EDT Office Visit [facility] [address] [place] [address] Sesar Pereyra MD [address] [place] [address] documented as of this encounter Visit Diagnoses Not on filedocumented in this encounter Additional Health Concerns Assessment Noted Time PHQ-9 Depression Total Score: 16 024 10:59 AM EDT documented as of this encounter Care Teams Tyre Builder Relationship Specialty Start Date End Date Sesar Pereyra MD [address] [place] [address] PCP - General Internal Medicine 03/01/21 [facility] 03/22/24 documented as of this encounter
--- OUTSIDE RECORDS SUMMARY | 2024-07-11 14:37 | XMS_ITS | Encounter Summary ---
Author Organization [facility] Address [address] [place] [address] Care Team Providers Care Ux Research Associate Name Role Phone Ayo Carpio MD Primary Care Provider [phone] Annalee Jones MD Primary Care Provider Un available Yolande Nicholas DO Primary Care Pro vider Unavailable Anuj Priest DO Primary Care Provider Judy [facility], Pcp Primary Care Provider Unavailabl e Reason for Visit * Reason Onset Date Comments hospital follow up 10/14/2016 Encounter Details Date Type Department Care Team Description 10/14/2016 Telephone Adult Medicine [address] [phone] Ayo Carpio MD [address] [place] [address] [phone] hospital follow up Social History Tobacco Use [...] Pt to see 10/21 at 1:30 for [facility] f/u . * Telephone Encounter - Bertha Ernandez - 10/17/2016 1:41 PM EDT Pt returning call, pt has a bad phone, please call Patient today at this number [phone] * Telephone Encounter - Minerva Kan R.N. [...] appointment needed Hospital patient was treated at: [facility] Was this only an ER visit [...] on filedocumented in this encounter Care Teams Ux Research Associate Relationship Specialty Start Date End Date Ayo Carpio MD [address] [place] [address] PCP - General Internal Medicine 07/19/16 01/05/17 Annalee Jones MD [address] [place] [address] PCP - General Internal Medicine 01/06/17 12/02/18 Yolande Nicholas DO [address] [place] [address] PCP - General Internal Medicine 12/03/18 10/08/20 Anuj Priest DO [address] [place] [address] PCP - General Internal Medicine 10/09/20 06/16/21 [facility], Jose G [address] [place] [address] PCP - General Internal Medicine 06/17/21 documented as of this encounter
--- OUTSIDE RECORDS SUMMARY | 2024-07-11 14:37 | XMS_ITS | Encounter Summary ---
Author Organization [facility] Address [address] [place] [address] Care Team Providers Care Die Maker Apprentice Name Role Phone Annalee Jones MD Primary Care Provider Un available Yolande Nicholas DO Primary Care Pro vider Unavailable Anuj Priest DO Primary Care Provider Judy [facility], Pcp Primary Care Provider Unavailabl e Encounter Details Date Type Department Care Team Description 11/15/2017 Refill Adult Medicine [address] [address] Annalee Jones MD Social History Tobacco Use [...] MG tablet [Annalee Jones MD] Preferred pharmacy: [id number] - [facility] [place] - [address] [facility] [address] AT Comment: would like a refill of 10 tablets of 20Mg Lisinopril Alex Nettles 1945 [facility] [place] documented in this encounter Plan of Treatment Not on file documented as of this encounter Visit Diagnoses Not on filedocumented in this encounter Care Teams Die Maker Apprentice Relationship Specialty Start Date End Date Annalee Jones MD PCP - General Internal Medicine 01/06/17 9 Yolande Nicholas DO PCP - General Internal Medicine 12/03/18 10/08/20 Anuj Priest DO PCP - General Internal Medicine 10/09/20 2 [facility], Pcp PCP - General Internal Medicine 06/17/21 documented as of this encounter
--- OUTSIDE RECORDS SUMMARY | 2024-07-11 14:37 | XMS_ITS | Encounter Summary ---
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 Medical Records [address] [place] [address] Abstract, Provider Social History Tobacco Use Types [...] filedocumented in this encounter Care Teams Director Imaging Relationship Specialty Start Date End Date Coleman Mccarthy MD PCP - General Internal Medicine 05/07/14 07/18/16 Ayo Carpio MD [address] [place] [address] [phone] PCP - General Internal Medicine 07/19/16 01/05/17 Annalee Jones MD [address] [place] [address] PCP - General Internal Medicine 01/06/17 12/02/18 Yolande Nicholas, [address] [place] [address] PCP - General Internal Medicine 12/03/18 10/08/20 Anuj Priest DO [address] [place] [address] PCP - General Internal Medicine 10/09/20 06/16/21 [facility], Pcp [address] [place] [address] PCP - General Internal Medicine 06/17/21 documented as of this encounter
--- OUTSIDE RECORDS SUMMARY | 2024-07-11 14:37 | XMS_ITS | Encounter Summary ---
Author Organization [employer] Address [address] [facility] 7t [place] [address] Care Team Providers Care File Drawer Finisher Name Role Phone Sesar Pereyra MD Primary Care Provider [phone] Encounter Details Date Type Department Care Team [...] Upcoming Encounters Date Type Department Care Team ([facility] st Contact Info) Description 09/11/2024 10:30 AM EDT Office Visit [facility] [address] [place], [place] [address] Sesar Pereyra MD [address] [place] [address] documented as of this encounter Procedures Procedure [...] EST Narrative 06/24/2024 8:13 AM EST ? [facility] ?[address] ?[place] [address] ? Fluoroscopy Report ? Signed ? Patient: Tho,Alex ?MR#: [id number] ?? [id number] ? : 1945 ?Acct:[id number] ? Age/Sex: 79 / M ?ADM Date: 06/19/24 ? Loc: HO.S3 ?363-2 ? Attending Dr: Tania Bernabe TUNNEL FORM PLACING SUPERVISOR ? Ordering Physician: Royce Kothari MD ?? Date of Service: 06/21/24 ?? Procedure(s): FL guidance in OR ?? Accession Number(s): [id number] ? cc: Sesar Pereyra MD; Royce Kothari [...] DD/ 1750 ? TD/TT: 06/21/24 1750 ? Hat And Cap Sewer: ? Procedure Note Hernandez, Alonzo - 06/24/[address] [address] Fluoroscopy Report Signed Patient: Ronald Nettles#: [id number] : 7Acct:[id number] Age/Sex: 79 / MADM Date: 06/19/24 Loc: HO.S3 363-[address]: Tania Bernabe TUNNEL FORM PLACING SUPERVISOR Ordering Physician: Royce Kothari MD Date of Service: 06/21/24 Procedure(s): FL guidance in OR Accession Number(s): [id number] cc: Sesar Pereyra MD; Royce Kothari MD [...] 06/24/24 0810 DD/ 1750 TD/TT: 06/21/24 1750 Hat And Cap Sewer: [facility] External Provider IMG IR PROCEDURES Final Result * CT Humerus (06/19/2024 8:00 PM EST) Anatomical Region Laterality Modality Computed Tomogra phy 06/19/2024 8:00 PM EST Narrative 06/19/2024 8:02 PM EST ? [facility] ?[address] ?[place] [address] ? CT Scan Report ? Signed ? Patient: Tho,Alex ?MR#: [id number] ?? [id number] ? : 1945 ?Acct:[id number] ? Age/Sex: 79 / M ?ADM Date: 02/19/25 ? Loc: HO.ED ? Attending Dr: ? Ordering Physician: Angela Moura MD ?? Date of Service: 06/19/24 ?? Procedure(s): CT humerus LT wo IV con ?? Accession Number(s): [id number] ? cc: Sesar Pereyra MD; Angela Moura MD ? Report Number: ?? [id number]: Total DLP = ??192.00 mGy-cm ? CLINICAL [...] of the dorsal margin of the glenoid. Mzeutaqu-rm-rdztg ?? 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 ?? 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 ?? Please refer to separate report for x-rays of the partially included elbow. ?? Mild imaged rib deformities in the zcqgc-rw-rmui appear old/chronic. ? Impression: ?? 1. Anterior [...] ? DD/ 99 ? TD/TT: 06/19/241999 ? Hat And Cap Sewer: ? Procedure Note Alonzo Ng - 06/20/[address] [address] [address] Scan Report Signed Patient: Ronald Nettles#: [id number] : 7Acct:[id number] Age/Sex: 79 / MADM Date: 06/19/24 Loc: HO.ED Attending Dr: Ordering Physician: Angela Moura MD Date of Service: 06/19/24 Procedure(s): CT humerus LT wo IV con Accession Number(s): [id number] cc: Sesar Pereyra MD; Angela Moura MD Report Number: [id number]: Total DLP = 192.00 mGy-cm CLINICAL HISTORY: [...] of the dorsal margin of the glenoid. 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 Please refer to separate report for x-rays of the partially includedelbow. Mild imaged rib deformities in the loxos-ui-jknn appear old/chronic. Impression: 1. Anterior dislocation of [...] in OV> 06/19/242001 DD/ 99 TD/TT: 06/19/241999 Hat And Cap Sewer: [facility] External Provider IMG CT PROCEDURES Final Result * (ABNORMAL) Prothrombin Time-INR (06/19/2024 7:57 PM EST) Prothrombin Time 16.0(H) 10.9 - 12.4 SEC [facility] INTERNATIONAL NORM RATIO 1.4(H) 0.9 - 1.1 [facility] Comment:INTERNATIONAL NORMAL IZED RATIO (INR) [...] ORDERAB LES Final Result Performing Organization Address City/State/[facility] Co de Phone Number [facility] [address] [place] [phone] * (ABNORMAL) CBC auto differential (06/19/2024 7:57 PM EST) White Blood Count 11.9(H) 4.8 - 10.8 X10*3/uL [facility] Red Blood Count 4.64 4.60 - 5.80 X10*6/uL [facility] Hemoglobin 14.3 14.0 - 18.0 g/dl [facility] Hematocrit 42.9 42.0 - 52.0 % [facility] Mean Corpuscular Volume 92.5 80.0 - 98.0 fL [facility] Mean Corpuscular Hemoglobin 30.8 27.0 - 33.0 pg [facility] Mean Corpuscular HGB Conc 33.3 31.0 - 36.0 g/dl [facility] Red Cell Distribution Width 14.4 11.0 - 16.0 % [facility] Platelet Count 238 160 - 400 X10*3/uL [facility] Mean Platelet Volume 9.9 9.4 - 12.4 fL [facility] Neutrophils Percent Auto 83.9(H) 45 - 73 % [facility] Imm Gran Pct Auto 0.3 0.0 - 0.4 % [facility] Lymphocytes Percent Auto 7.1(L) 20 - 40 % [facility] Monocytes Percent Auto 8.1 2 - 11 % [facility] Eosinophils Percent Auto 0.2 0 - 4 % [facility] Basophils Percent Auto 0.4 0 - 2 % [facility] NRBC Pct Auto 0.0 0.0 - 0.2 /100WBC [facility] Neutrophils Absolute Auto 10.0(H) 2.0 - 8.3 x10*3/uL [facility] Imm Gran Abs Auto 0.04(H) 0.00 - 0.03 X10*3/uL [facility] Lymphocytes Absolute Auto 0.9(L) 1.2 - 4.9 X10*3/uL [facility] Monocytes Absolute Auto 1.0 0.1 - 1.2 X10*3/uL [facility] Eosinophils Absolute Auto 0.0 0.0 - 0.4 X10*3/uL [facility] Basophils Absolute Auto 0.1 0.0 - 0.2 X10*3/uL [facility] NRBC Abs Auto 0.000 0.0 - 0.012 X10*3/uL [facility] 06/19/2024 7:57 PM EST 06/19/2024 8:05 PM EST us Generic External Data Provider LAB BLOOD ORDERAB LES Edited Result - Final Performing Organization Address City/State/[facility] Co de Phone Number [facility] [address] [place] [address] [phone] * XR Elbow 3+ Views Left (06/19/2024 7:16 PM EST) Anatomical Region Laterality Modality Upper Extremities, Elbow Left Radiogr aphic Imaging 06/19/2024 7:16 PM EST Narrative 06/19/2024 7:18 PM EST ? [facility] ?[address] ?[place] [address] ?XRay Report ? Signed ? Patient: Prawlucki,Alex ?MR#: [id number] ?? [id number] ? : 1945 ?Acct:[id number] ? Age/Sex: 79 / M ?ADM Date: 02/19/25 ? Loc: HO.ED ? Attending Dr: ? Ordering Physician: Angela Moura MD ?? Date of Service: 06/19/24 ?? Procedure(s): XR elbow LT min 3V ?? Accession Number(s): [id number] ? cc: eSsar Pereyra MD; Angela Moura MD ? CLINICAL [...] ? DD/ 15 ? TD/TT: 06/19/241915 ? Hat And Cap Sewer: ? Procedure Note Doncathieter, Image - 06/19/[address] [address] XRay Report Signed Patient: Ronald Nettles#: [id number] : 1945cct:[id number] Age/Sex: 79 / MADM Date: 06/19/24 Loc: HO.ED Attending Dr: Ordering Physician: Angela Moura MD Date of Service: 06/19/24 Procedure(s): XR elbow LT min 3V Accession Number(s): [id number] cc: Sesar Pereyra MD; Angela Moura MD [...] in OV> 06/19/241916 DD/ 15 TD/TT: 06/19/241915 Hat And Cap Sewer: [facility] External Provider IMG XR PROCEDURES Final Result * CT Head w/o Contrast (06/19/2024 7:12 PM EST) Anatomical Region Laterality Modality Head, Neck Computed Tomogra phy 06/19/2024 7:12 PM EST Narrative 06/19/2024 7:14 PM EST ? [facility] ?[address] ?[place] [address] ? CT Scan Report ? Signed ? Patient: Tho,Alex ?MR#: [id number] ?? [id number] ? : 1945 ?Acct:[id number] ? Age/Sex: 79 / M ?ADM Date: 06/19/24 ? Loc: HO.ED ? Attending Dr: ? Ordering Physician: Lonny Delgado ?? Date of Service: 06/19/24 ?? Procedure(s): CT head/brain wo IV con ?? Accession Number(s): [id number] ? cc: Sesar Pereyra MD; Lonny Delgado ? Report Number: ?? [id number]: Total DLP = ??652.00 mGy-cm ? CLINICAL [...] ? DD/ 11 ? TD/TT: 06/19/241911 ? Hat And Cap Sewer: ? Procedure Note Donotuseinterpreter, Image - 06/19/[address] [place] [address] [address] Scan Report Signed Patient: Ronald Nettles#: [id number] : 1945cct:[id number] Age/Sex: 79 / MADM Date: 06/19/24 Loc: HO.ED Attending Dr: Ordering Physician: Lonny Delgado Date of Service: 06/19/24 Procedure(s): CT head/brain wo IV con Accession Number(s): [id number] cc: Sesar Pereyra MD; Lonny Delgado Report Number: [id number]: Total DLP = 652.00 mGy-cm CLINICAL HISTORY: [...] in OV> 06/19/241912 DD/ 11 TD/TT: 06/19/241911 Hat And Cap Sewer: [facility] External Provider IMG CT PROCEDURES Final Result * Lipase (06/19/2024 6:17 PM EST) Lipase 17 8 - 78 U/L [facility] 06/19/2024 6:17 PM EST 06/19/2024 6:19 PM EST Generic External Data Provider LAB BLOOD ORDERAB LES Final Result Performing Organization Address City/State/[facility] Co de Phone Number [facility] [address] [place] [phone] * (ABNORMAL) Comprehensive Metabolic Panel (06/19/2024 6:17 PM EST) Sodium 142 135 - 145 mmol/L [facility] Potassium 3.8 3.3 - 5.1 mmol/L [facility] Comment:Slight Hemolysis.Int erpret result with caution. Chloride 109(H) 96 - 108 mmol/L [facility] Carbon Dioxide 23 22 - 29 mmol/L [facility] Anion Gap 14 12 - 20 [facility] Urea Nitrogen (BUN) 13 9 - 16 mg/dL [facility] Creatinine, Serum 1.11 0.5 - 1.4 mg/dL [facility] Creatinine Clr Calc Pharmacy 72.1 [facility] Comment:eGFR (calculated fro m the MDRD study equation) and eCrCl(calculated from the Cockcroft-Gault equation) are based ondifferent parameters and may not yield comparable results.If eCrCl result is absurd, please check patient'sheight/weight. Estimated Glomerular Filt Rate >60 [facility] Comment:Chronic Kidney Disea se: Estimated GFR < 60 mL/min/1.97x8Vaaknj Kidney Disease: Estimated GFR < 15 mL/min/1.73m2 Glucose 92 60 - 115 mg/dL [facility] Calcium 9.1 8.4 - 10.2 mg/dL [facility] Bilirubin, Total 0.5 0.0 - 1.0 mg/dL [facility] Aspartate Amino Transferase 27 5 - 37 U/L [facility] Comment:Slight Hemolysis.Int erpret result with caution. Alanine Aminotransferase 14 0 - 40 U/L [facility] Total Protein 7.7 6.5 - 8.0 g/dL [facility] Albumin Level 4.1 3.5 - 5.0 g/dL [facility] Alkaline Phosphatase 119(H) 39 - 117 U/L [facility] 06/19/2024 6:17 PM EST 06/19/2024 6:19 PM EST us Generic External Data Provider LAB BLOOD ORDERAB LES Final Result [facility] [address] [place] [address] [phone] documented in this encounter Visit Diagnoses Not on filedocumented in this encounter Additional Health Concerns Assessment Noted Time PHQ-9 Depression Total Score: 16 07/18/2 024 10:59 AM EDT documented as of this encounter Care Teams File Drawer Finisher Relationship Specialty Start Date End Date Sesar Pereyra MD [address] [place] [phone] PCP - General Internal Medicine 03/01/21 [facility] 03/22/24 documented as of this encounter
--- OUTSIDE RECORDS SUMMARY | 2024-07-11 14:37 | XMS_ITS | Encounter Summary ---
Author Organization [facility] Address [address] [place] [address] Care Team Providers Care Autographer Name Role Phone Yolande Nicholas DO Primary Care Pro vider Unavailable Anuj Priest DO Primary Care Provider [facility], Pcp Primary Care Provider Unavailabl e Reason for Visit * Reason Onset Date Comments Mychart Rx Refill 06/27/2020 Encounter Details Date Type Department Care Team Description 06/27/2020 Refill Adult Medicine [address] [address] Yolande Nicholas DO Mychart Rx Refill Social [...] pharmacy whats the hold up Preferred pharmacy: [facility] [address] Medication renewals requested in this message routed separately: atorvastatin (LIPITOR) 80 MG tablet [Yolande Gomez DO] metoprolol (LOPRESSOR) 25 MG tablet [Yolande Gomez DO] documented in this encounter Plan of Treatment Not on file documented as of this encounter Visit Diagnoses Not on filedocumented in this encounter Care Teams Autographer Relationship Specialty Start Date End Date Yolande Nicholas DO PCP - General Internal Medicine 12/03/18 10/08/20 Anuj Priest DO PCP - General Internal Medicine 10/09/[address] [place] [address], Pcp PCP - General Internal Medicine 06/17/21 documented as of this encounter
--- OUTSIDE RECORDS SUMMARY | 2024-07-11 14:37 | XMS_ITS | Encounter Summary ---
Author Organization [facility] Address [address] [place] [address] Care Team Providers Care Slate Roofer Helper Name Role Phone Yolande Nicholas DO Primary Care Pro vider Unavailable Anuj Priest DO Primary Care Provider Judy álvarez [facility], Pcp Primary Care Provider Unavailabl e Encounter Details Date Type Department Care Team Description 09/07/2020 Front Office Administrator Report Medical Records [address] [place] [address] Dhruv Garcia MD Social History Tobacco Use [...] filedocumented in this encounter Care Teams Slate Roofer Helper Relationship Specialty Start Date End Date Yolande Nicholas DO PCP - General Internal Medicine 12/03/18 10/08/20 Anuj Priest DO PCP - General Internal Medicine 10/09/20 Molly Gardner, Pcp PCP - General Internal Medicine 06/17/21 documented as of this encounter
--- OUTSIDE RECORDS SUMMARY | 2024-07-11 14:37 | XMS_ITS | Encounter Summary ---
Author Organization [facility] Address [address] [place] [address] Care Team Providers Care Air Traffic Supervisor Name Role Phone Ayo Carpio MD Primary Care Provider [phone] Annalee Jones MD Primary Care Provider Un available Yolande Nicholas DO Primary Care Pro vider Unavailable Anuj Priest DO Primary Care Provider Judy [facility], Pcp Primary Care Provider Unavailabl e Encounter Details Date Type Department Care Team Description 10/06/2016 Occupational Health Technician Report Medical Records [address] [place] [address] Anuj Easton Social History Tobacco Use Types [...] filedocumented in this encounter Care Teams Air Traffic Supervisor Relationship Specialty Start Date End Date Ayo Carpio MD [address] [place] [address] PCP - General Internal Medicine 07/19/16 01/05/17 Annalee Jones MD [address] [place] [address] PCP - General Internal Medicine 01/06/17 12/02/18 Yolande Nicholas, [address] [place] [address] PCP - General Internal Medicine 12/03/18 10/08/20 Anuj Priest, [address] [place] [address] PCP - General Internal Medicine 10/09/20 06/16/21 [facility], Pcp [address] [place] [address] PCP - General Internal Medicine 06/17/21 documented as of this encounter
--- OUTSIDE RECORDS SUMMARY | 2024-07-11 14:37 | XMS_ITS | Encounter Summary ---
Author Organization [employer] Address [address] [facility] 7t [place] [address] Care Team Providers Care Clerical Assistant Name Role Phone Sesar Pereyra MD Primary Care Provider [phone] Reason for Visit * Reason Onset Date Comments Med Refill 04/11/2024 Encounter Details Date Type Department Care Team (Late st Contact Info) Description 04/11/2024 Refill [facility] [address] [place] [address] Natasha Jiang MD [address] [place] [address] Closed nondisplaced fracture of acromial end of [...] 10:30 AM EDT Office Visit [facility] [address] [place] [address] Sesar Pereyra MD [address] [place] [address] documented as of this encounter Visit Diagnoses Diagnosis Closed nondisplaced fracture of acromial end of right clavicle, initial encounter documented in this encounter Additional Health Concerns Assessment Noted Time PHQ-9 Depression Total Score: 16 024 10:59 AM EDT documented as of this encounter Care Teams Clerical Assistant Relationship Specialty Start Date End Date Sesar Pereyra MD [address] [place] [address] PCP - General Internal Medicine 03/01[facility] documented as of this encounter
--- OUTSIDE RECORDS SUMMARY | 2024-07-11 14:37 | XMS_ITS | Encounter Summary ---
Author Organization [employer] Address [address] [facility] 7t [place] [address] Care Team Providers Care Hospital Mortician Name Role Phone Sesar Pereyra MD Primary Care Provider [phone] Encounter Details Date Type Department Care Team (Late st Contact Info) Description 06/24/2024 Orders Only [facility] MED[facility]INE [address] [place] [address] Sesar Pereyra MD [address] [place] [address] Paroxysmal atrial fibrillation (CMS/HCC) (Primary Dx) Social [...] Upcoming Encounters Date Type Department Care Team ([facility] st Contact Info) Description 09/11/2024 10:30 AM EDT Office Visit [facility] & PEDS [address] [place] [address] Sesar Pereyra MD [address] [place] [address] documented as of this encounter Visit Diagnoses Diagnosis Paroxysmal atrial fibrillation (CMS/HCC)- Primary Atrial fibrillation documented in this encounter Additional Health Concerns Assessment Noted Time PHQ-9 Depression Total Score: 16 024 10:59 AM EDT documented as of this encounter Care Teams Hospital Mortician Relationship Specialty Start Date End Date Sesar Pereyra MD [address] [place] [address] PCP - General Internal Medicine 03/01/21 [facility] documented as of this encounter
--- OUTSIDE RECORDS SUMMARY | 2024-07-11 14:37 | XMS_ITS | Encounter Summary ---
Author Organization [facility] Address [address] [place] [address] Care Team Providers Care Furnace Setter Name Role Phone Yolande Nicholas DO Primary Care Pro vider Unavailable Anuj Priest DO Primary Care Provider [facility], Pcp Primary Care Provider Unavailabl e Reason for Visit * Reason Onset Date Comments Faxed Order 08/25/2020 Encounter Details Date Type Department Care Team Description 08/25/2020 Telephone Adult [address] [address] Yolande Nicholas DO Faxed Order Social History [...] TO BE SIGN AND FAX BACK TO [phone]. documented in this encounter Plan of Treatment Not on file documented as of this encounter Visit Diagnoses Not on filedocumented in this encounter Care Teams Furnace Setter Relationship Specialty Start Date End Date Yolande Nicholas DO PCP - General Internal Medicine 12/03/18 10/08/20 Anuj Priest DO PCP - General Internal Medicine 10/09/20 2 [facility], Pcp PCP - General Internal Medicine 06/17/21 documented as of this encounter
--- OUTSIDE RECORDS SUMMARY | 2024-07-11 14:37 | XMS_ITS | Encounter Summary ---
Author Organization [employer] Address [address] [facility] 7t [place] [address] Care Team Providers Care Cabin Outfitter Name Role Phone Sesar Pereyra MD Primary Care Provider [phone] Reason for Visit * Reason Onset Date Comments Medication Question 06/21/2024 Encounter Details Date Type Department Care Team ([facility] st Contact Info) Description 06/21/2024 Telephone [facility] MEDICINE [address] [place] [address] Sesar Pereyra MD [address] [place] [address] Medication Question Social History Tobacco Use Types [...] to Discontinue the medication. Contact Conrad at [phone] Ext [phone] The Voicemail is private so you are able to Leave a message in there. documented in this encounter Plan of Treatment Upcoming Encounters Date Type Department Care Team (Late st Contact Info) Description 09/11/2024 10:30 AM EDT Office Visit [facility] & [facility]EDS [address] [place] [address] Sesar Pereyra MD [address] [place] [address] documented as of this encounter Visit Diagnoses Not on filedocumented in this encounter Additional Health Concerns Assessment Noted Time PHQ-9 Depression Total Score: 16 024 10:59 AM EDT documented as of this encounter Care Teams Cabin Outfitter Relationship Specialty Start Date End Date Sesar Pereyra MD [address] [place] [address] PCP - General Internal Medicine 03/01/21 [facility] 03/22/24 documented as of this encounter
--- OUTSIDE RECORDS SUMMARY | 2024-07-11 14:37 | XMS_ITS | Encounter Summary ---
Author Organization [employer] Address [address] [facility] 7t [place] [address] Care Team Providers Care Emt Intermediate Name Role Phone Sesar Pereyra MD Primary Care Provider [phone]- [phone] Encounter Details Date Type Department Care Team ([facility] st Contact Info) Description 04/29/2024 Orders Only [facility] [address] [place], [place] [phone] Sesar Pereyra MD [address] [place] [address] Closed nondisplaced fracture of acromial end of [...] [facility] [address] [place] [address] Sesar Pereyra MD [address] [place] [address] documented as of this encounter Visit Diagnoses Diagnosis Closed nondisplaced fracture of acromial end of right clavicle, initial encounter documented in this encounter Additional Health Concerns Assessment Noted Time PHQ-9 Depression Total Score: 16 024 10:59 AM EDT documented as of this encounter Care Teams Emt Intermediate Relationship Specialty Start Date End Date Sesar Pereyra MD [address] [place] [address] PCP - General Internal Medicine 03/01/21 [facility] 03/22/24 documented as of this encounter
--- OUTSIDE RECORDS SUMMARY | 2024-07-11 14:37 | XMS_ITS | Encounter Summary ---
Author Organization [facility] Address [address] [place] [address] Care Team Providers Care Field Service Technician Poultry Name Role Phone Annalee Jones MD Primary Care Provider Un available Yolande Nicholas DO Primary Care Pro vider Unavailable Anuj Priest DO Primary Care Provider Judy [facility], Pcp Primary Care Provider Unavailabl e Reason for Visit * Reason Onset Date Comments Faxed Order 11/22/2017 Encounter Details Date Type Department Care Team Description 11/22/2017 Telephone Adult [address] [address] Annalee Jones MD Faxed Order Social History [...] Villarreal Fidel - 11/22/2017 3:57 PM EDT [employer] IS FAXING A PRE AUTH FOR sildenafil (VIAGRA) 100 MG tablet. PAPER WORK PUT IN DR COSMO MENDEZ. [facility] C[facility] [place] TEL [phone] FAX documented in this encounter Plan of Treatment Not on file documented as of this encounter Visit Diagnoses Not on filedocumented in this encounter Care Teams Field Service Technician Poultry Relationship Specialty Start Date End Date Annalee Jones MD PCP - General Internal Medicine 01/06/17 9 Yolande Nicholas DO PCP - General Internal Medicine 12/03/18 10/08/20 Anuj Priest DO PCP - General Internal Medicine 10/09/20 2 [facility], Pcp PCP - General Internal Medicine 06/17/21 documented as of this encounter
--- OUTSIDE RECORDS SUMMARY | 2024-07-11 14:37 | XMS_ITS | Encounter Summary ---
Author Organization [employer] Address [address] [facility] 7t [place] [address] Care Team Providers Care Dispatcher Maintenance Name Role Phone Sesar Pereyra MD Primary Care Provider [phone]- [phone] Reason for Visit * Reason Onset Date Comments Med Refill 04/02/2024 Encounter Details Date Type Department Care Team ([facility] st Contact Info) Description 04/02/2024 Telephone [facility] MED[facility]INE [address] [place] [address] Sesar Pereyra MD [address] [place] [address] Med Refill Social History Tobacco Use Types [...] 9:39 AM EST Medication was sent to [id number] on 04/01/24 #30 with 11 refills. * Telephone Encounter - Miri Young - 04/02/2024 9:33 AM EST TC from pt requesting medication refill. Medications needing refill : metoprolol tartrate (Lopressor) 25 MG tablet To be sent to: [facility] documented in this encounter Plan of Treatment Upcoming Encounters Date Type Department Care Team (Late st Contact Info) Description 09/11/2024 10:30 AM EDT Office Visit [facility] [address] [place] [address] Sesar Pereyra MD 505 [place] [address] documented as of this encounter Visit Diagnoses Not on filedocumented in this encounter Additional Health Concerns Assessment Noted Time PHQ-9 Depression Total Score: 16 024 10:59 AM EDT documented as of this encounter Care Teams Dispatcher Maintenance Relationship Specialty Start Date End Date Sesar Pereyra MD [address] [place] [address] PCP - General Internal Medicine 03/01/21 [facility] 03/22/24 documented as of this encounter
--- OUTSIDE RECORDS SUMMARY | 2024-07-11 14:37 | XMS_ITS | Encounter Summary ---
Author Organization [employer] Address [address] [facility] 7t [place] [address] Care Team Providers Care Riding Teacher Name Role Phone Sesar Pereyra MD Primary Care Provider [phone]- [phone] Reason for Visit * Reason Onset Date Comments Med Refill 04/28/2024 Encounter Details Date Type Department Care Team ([facility] st Contact Info) Description 04/28/2024 Refill [facility] PED[facility] [address] [place] [address] Sesar Pereyra MD [address] [place] [address] Social History Tobacco Use Types Packs/Day Years [...] [facility] [address] [place] [address] Sesar Pereyra MD [address] [place] [address] documented as of this encounter Visit Diagnoses Not on filedocumented in this encounter Additional Health Concerns Assessment Noted Time PHQ-9 Depression Total Score: 16 024 10:59 AM EDT documented as of this encounter Care Teams Riding Teacher Relationship Specialty Start Date End Date Sesar Pereyra MD [address] [place] [address] PCP - General Internal Medicine 03/01/21 [facility] 03/22/24 documented as of this encounter
--- OUTSIDE RECORDS SUMMARY | 2024-07-11 14:37 | XMS_ITS | Encounter Summary ---
Author Organization [facility] Address [address] [place] [address] Care Team Providers Care Skidway Man Name Role Phone Ayo Carpio MD Primary Care Provider [phone] Annalee Jones MD Primary Care Provider Un available Yolande Nicholas DO Primary Care Pro vider Unavailable Anuj Priest DO Primary Care Provider Judy [facility], Pcp Primary Care Provider Unavailabl e Encounter Details Date Type Department Care Team Description 10/10/2016 [facility] Medical Records [address] [place] [address] Tania Bernabe NP Social History Tobacco Use [...] on filedocumented in this encounter Care Teams Skidway Man Relationship Specialty Start Date End Date Ayo Carpio MD [address] [place] [address] PCP - General Internal Medicine 07/19/16 01/05/17 Annalee Jones MD [address] [place] [address] PCP - General Internal Medicine 01/06/17 12/02/18 Yolande Nicholas, DO [address] [place] [address] PCP - General Internal Medicine 12/03/18 10/08/20 Anuj Priest, [address] [place] [address] PCP - General Internal Medicine 10/09/20 06/16/21 [facility], [address] [address] PCP - General Internal Medicine 06/17/21 documented as of this encounter
--- OUTSIDE RECORDS SUMMARY | 2024-07-11 14:37 | XMS_ITS | Encounter Summary ---
Author Organization [facility] Address [address] [place] [address] Care Team Providers Care Health Commissioner Name Role Phone Yolande Nicholas DO Primary Care Pro vider Unavailable Anuj Priest DO Primary Care Provider [facility], Pcp Primary Care Provider Unavailabl e Encounter Details Date Type Department Care Team Description 09/04/2019 Telephone Internal Medicine - [address], [address] [place] [address] Alana Stinson MD [address] [place] [id number] Social History Tobacco Use Types Packs/Day [...] PM EDT Spoke to someone from [facility] rehab they will send discharge notes. * Telephone Encounter - Alana Stinson MD - 09/04/2019 11:48 AM EDT PLS GET DISCHARGE SUMMARY FROM [facility] [place], documented in this encounter Plan of Treatment Not on file documented as of this encounter Visit Diagnoses Not on filedocumented in this encounter Care Teams Health Commissioner Relationship Specialty Start Date End Date Yolande Nicholas DO PCP - General Internal Medicine 12/03/18 10/08/20 Anuj Priest DO PCP - General Internal Medicine 10/09/20 2 [facility], Pcp PCP - General Internal Medicine 06/17/21 documented as of this encounter
[2024-07-11] MEDS: Acetaminophen 1,000 MG/100 ML PIGGYBACK 400 MG IV (14:39)
[2024-07-11] MEDS: 0.9 % Sodium Chloride 1,000 ML 999 ML IV (14:39)
--- OUTSIDE RECORDS SUMMARY | 2024-07-11 14:39 | XMS_ITS | Encounter Summary ---
Author Organization [employer] Address [address] [facility] 7t [place] [address] Care Team Providers Care Picture Frame Maker Name Role Phone Sesar Pereyra MD Primary Care Provider [phone] Encounter Details Date Type Department Care Team ([facility] st Contact Info) Description 11/01/2023 Orders Only [facility] MED & PEDS [address] [place], [place] [phone] Sesar Pereyra MD [address] [place] [address] Social History Tobacco Use Types Packs/Day Years [...] [facility] [address] [place] [address] Sesar Pereyra MD [address] [place] [address] documented as of this encounter Visit Diagnoses Not on filedocumented in this encounter Additional Health Concerns Assessment Noted Time PHQ-9 Depression Total Score: 16 024 10:59 AM EDT documented as of this encounter Care Teams Picture Frame Maker Relationship Specialty Start Date End Date Sesar Pereyra MD [address] [place] [address] PCP - General Internal Medicine 03/01/[address] 03/22/24 documented as of this encounter
--- OUTSIDE RECORDS SUMMARY | 2024-07-11 14:39 | XMS_ITS | Encounter Summary ---
Author Organization [employer] Address [address] [facility] 7t [place] [address] Care Team Providers Care Nurse Obgyn Name Role Phone Sesar Pereyra MD Primary Care Provider [phone]- [phone] Reason for Visit * Reason Onset Date Comments Referral 01/02/2024 Encounter Details Date Type Department Care Team ([facility] st Contact Info) Description 01/02/2024 Telephone [facility] MEDICINE [address] [place] [address] Sesar Pereyra MD [address] [place] [address] Referral Social History Tobacco Use Types Packs/Day [...] - 01/02/2024 10:48 AM EDT Tc from [facility] the patients EC requesting a referral for a gerontologist and would like to be sent to at [facility] [place] documented in this encounter Plan of Treatment Upcoming Encounters Date Type Department Care Team (Late st Contact Info) Description 09/11/2024 10:30 AM EDT Office Visit [facility] MED & PEDS [address] [place] [address] Sesar Pereyra MD [address] [place] [address] documented as of this encounter Visit Diagnoses Not on filedocumented in this encounter Additional Health Concerns Assessment Noted Time PHQ-9 Depression Total Score: 16 024 10:59 AM EDT documented as of this encounter Care Teams Nurse Obgyn Relationship Specialty Start Date End Date Sesar Pereyra MD [address] [place], [place] [address] [address] PCP - General Internal Medicine 03/01/21 [facility] 03/22/24 documented as of this encounter
--- OUTSIDE RECORDS SUMMARY | 2024-07-11 14:39 | XMS_ITS | Encounter Summary ---
Author Organization [employer] Address [address] [facility] 7t [place] [address] Care Team Providers Care Bottle House Quality Control Technician Name Role Phone Sesar Pereyra MD Primary Care Provider [phone] Reason for Visit * Reason Comments Med Refill Encounter Details Date Type Department Care Team ([facility] st Contact Info) Description 10/30/2023 Refill [facility] MED & PEDS [address] [place], [place] [phone] Sesar Pereyra MD [address] [place] [address] PVD (peripheral vascular disease) (CMS/HCC); Longstanding persistent [...] Upcoming Encounters Date Type Department Care Team ([facility] st Contact Info) Description 09/11/2024 10:30 AM EDT Office Visit [facility] MED [facility] PEDS [address] [place] [address] Sesar Pereyra MD [address] [place] [address] documented as of this encounter Visit Diagnoses Diagnosis PVD (peripheral vascular disease) (CMS/HCC) Unspecified peripheral vascular disease Longstanding persistent atrial fibrillation (CMS/HCC) documented in this encounter Additional Health Concerns Assessment Noted Time PHQ-9 Depression Total Score: 16 024 10:59 AM EDT documented as of this encounter Care Teams Bottle House Quality Control Technician Relationship Specialty Start Date End Date Sesar Pereyra MD [address] [place] [address] PCP - General Internal Medicine 03/01/21 [facility] 03/22/24 documented as of this encounter
--- OUTSIDE RECORDS SUMMARY | 2024-07-11 14:39 | XMS_ITS | Encounter Summary ---
Author Organization [employer] Address [address] [facility] [place] [address] Care Team Providers Care Air Conditioning Coil Assembler Name Role Phone Sesar Pereyra MD Primary Care Provider [phone]- [phone] Reason for Referral * Consultation (Routine) - Closed Specialty Diagnoses / Procedures Referred By Contac t Referred To Contact Geriatric Medicine Diagnoses Memory disturbance Sesar Pereyra MD [address] [place] [address] Phone: tel: fax: [facility] [address] [place] [address] Phone: tel: fax: Referral ID Status Reason Start Date Expiration Date V isits Requested Visits Authorized [id number] Closed Specialty Services Required 01/11/2024 01/10/2025 1 1 Encounter Details Date Type Department Care Team (Late st Contact Info) Description 01/11/2024 Orders Only [facility] CH[facility] MED & PEDS [address] [place], [place] [phone] Sesar Pereyra MD [address] [place], [place] [phone] Memory disturbance (Primary Dx) Social History Tobacco [...] [facility] [address] [place] [address] Sesar Pereyra MD [address] [place] [address] Scheduled Referrals Name Type Priority Associated Diagnoses Orde r Schedule Referral to Geriatrics Outpatient Referral Routine Memory disturbance Expected: 01/11/2024 (Approximate), Expires: 01/10/2025 documented as of this encounter Visit Diagnoses Diagnosis Memory disturbance- Primary Memory loss documented in this encounter Additional Health Concerns Assessment Noted Time PHQ-9 Depression Total Score: 16 024 10:59 AM EDT documented as of this encounter Care Teams Air Conditioning Coil Assembler Relationship Specialty Start Date End Date Sesar Pereyra MD [address] [place] [address] PCP - General Internal Medicine 03/01/21 [facility] 03/22[facility] documented as of this encounter
--- OUTSIDE RECORDS SUMMARY | 2024-07-11 14:39 | XMS_ITS | Clinical Summary ---
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 Father (Age 49) [place] x 3, ET [place] Maternal Grandfather (Age [...] 02/19/2015, 02/19/2015, Additional history exists Care Teams Station Air Traffic Control Specialist Relationship Specialty Start Date End Date Community, Pcp PCP - General Internal Medicine 06/17/21
--- OUTSIDE RECORDS SUMMARY | 2024-07-11 14:39 | XMS_ITS | Encounter Summary ---
Author Organization [employer] Address [address] [facility] 7t [place] [address] Care Team Providers Care Soda Maker Name Role Phone Sesar Pereyra MD Primary Care Provider [phone]- [phone] Reason for Visit * Reason Comments Med Refill Encounter Details Date Type Department Care Team ([facility] st Contact Info) Description 08/29/2023 Refill [facility] MEDICINE [address] [place] [address] Sesar Pereyra MD [address] [place] [address] Social History Tobacco Use Types Packs/Day Years [...] Description 09/11/2024 10:30 AM EDT Office Visit [facility] MED & PEDS [address] [place] [address] Sesar Pereyra MD [address] [place] [address] documented as of this encounter Visit Diagnoses Not on filedocumented in this encounter Additional Health Concerns Assessment Noted Time PHQ-9 Depression Total Score: 16 024 10:59 AM EDT documented as of this encounter Care Teams Soda Maker Relationship Specialty Start Date End Date Sesar Pereyra MD [address] [place] [address] PCP - General Internal Medicine 03/01/21 [facility] documented as of this encounter
--- OUTSIDE RECORDS SUMMARY | 2024-07-11 14:39 | XMS_ITS | Encounter Summary ---
Author Organization [facility] Address [address] [place] [address] Care Team Providers Care Swedish Masseuse Name Role Phone Annalee Jones MD Primary Care Provider Un available Yolande Nicholas DO Primary Care Pro vider Unavailable Anuj Priest DO Primary Care Provider Judy [facility], Pcp Primary Care Provider Unavailabl e Encounter Details Date Type Department Care Team Description 06/13/2018 Refill Adult Medicine [address] [address] Annalee Jones MD Social History Tobacco Use [...] MG tablet [Annalee Jones MD] Preferred pharmacy: [facility] [address] [place] Comment: you have nothing [...] on filedocumented in this encounter Care Teams Swedish Masseuse Relationship Specialty Start Date End Date Annalee Jones MD PCP - General Internal Medicine 01/06/17 9 Yolande Nicholas DO PCP - General Internal Medicine 12/03/18 10/08/20 Anuj Priest DO PCP - General Internal Medicine 10/09/20 2 Counts Include [address] [facility], Pcp PCP - General Internal Medicine 06/17/21 documented as of this encounter
--- OUTSIDE RECORDS SUMMARY | 2024-07-11 14:39 | XMS_ITS | Encounter Summary ---
Author [facility] Address [address] [place] [address] Care Team Providers Care Mine Patrol Name Role Phone Yolande Nicholas DO Primary Care Pro vider Unavailable Anuj Priest DO Primary Care Provider [facility], Pcp Primary Care Provider Unavailabl e Reason for Visit * Reason Onset Date Comments Mychart Rx Refill 02/15/2019 Encounter Details Date Type Department Care Team Description 02/15/2019 Refill Adult Medicine [facility] [address] [place] [address] [facility] [address] [place] [address] Mychart Rx Refill Social History Tobacco Use [...] 20 MG tablet [MELITON Lombardo] Preferred pharmacy: [facility] [address] [place] [address] Comment: Need to have a refill documented in this encounter Plan of Treatment Not on file documented as of this encounter Visit Diagnoses Not on filedocumented in this encounter Care Teams Mine Patrol Relationship Specialty Start Date End Date Yolande Nicholas DO PCP - General Internal Medicine 12/03/18 10/08/20 Anuj Priest DO PCP - General Internal Medicine 10/09/20 2 [facility], Pcp PCP - General Internal Medicine 06/17/21 documented as of this encounter
--- OUTSIDE RECORDS SUMMARY | 2024-07-11 14:39 | XMS_ITS | Encounter Summary ---
Author Organization [facility] Address [address] [place] [address] Care Team Providers Care Expansion Joint Finisher Name Role Phone Annalee Jones MD Primary Care Provider Un available Yolande Nicholas DO Primary Care Pro vider Unavailable Anuj Priest DO Primary Care Provider [facility], Pcp Primary Care Provider Unavailabl e Encounter Details Date Type Department Care Team Description 08/28/2018 Biochemical Engineer Report Medical Records [address] [place] [id number] Duc Mcguire Social History Tobacco Use Types Packs/Day Years [...] on filedocumented in this encounter Care Teams Expansion Joint Finisher Relationship Specialty Start Date End Date Annalee Jones MD PCP - General Internal Medicine 01/06/17 9 Yolande Nicholas DO PCP - General Internal Medicine 12/03/18 10/08/20 Anuj Priest DO PCP - General Internal Medicine 10/09/20 2 [facility], Pcp PCP - General Internal Medicine 06/17/21 documented as of this encounter
--- OUTSIDE RECORDS SUMMARY | 2024-07-11 14:39 | XMS_ITS | Encounter Summary ---
Author [facility] Address [address] [place] [address] Care Team Providers Care Crossbar Switch Adjuster Name Role Phone Annalee Jones MD Primary Care Provider Un available Yolande Nicholas DO Primary Care Pro vider Unavailable Anuj Priest DO Primary Care Provider Judy [facility], Pcp Primary Care Provider Unavailabl e Reason for Visit * Reason Onset Date Comments Residential Leasing Agent Feedback 08/27/2018 ortho Encounter Details Date Type Department Care Team Description 08/27/2018 Telephone Adult Medicine [address] [address] [facility] [address] [place] [address] Residential Leasing Agent Feedback (ortho) Social History Tobacco Use Types [...] a disc of the MRI [facility] Home Planning Consultant Salesperson [facility] Department documented in this encounter Plan of Treatment Not on file documented as of this encounter Visit Diagnoses Not on filedocumented in this encounter Care Teams Crossbar Switch Adjuster Relationship Specialty Start Date End Date Annalee Jones MD PCP - General Internal Medicine 01/06/17 9 Yolande Nicholas DO PCP - General Internal Medicine 12/03/18 10/08/20 Anuj Priest DO PCP - General Internal Medicine 10/09/20 2 [facility], Pcp PCP - General Internal Medicine 06/17/21 documented as of this encounter
--- OUTSIDE RECORDS SUMMARY | 2024-07-11 14:39 | XMS_ITS | Encounter Summary ---
Author Organization [facility] Address [address] [place] [address] Care Team Providers Care Biology Specimen Technician Name Role Phone Annalee Jones MD Primary Care Provider Un available Yolande Nicholas DO Primary Care Pro vider Unavailable Anuj Priest DO Primary Care Provider Judy vailable [facility], Pcp Primary Care Provider Unavailabl e Encounter Details Date Type Department Care Team Description 09/04/2018 Release of Information Medical Records [address] [place] [phone] Abstract, Provider Social History Tobacco Use Types [...] on filedocumented in this encounter Care Teams Biology Specimen Technician Relationship Specialty Start Date End Date Annalee Jones MD PCP - General Internal Medicine 01/06/17 9 Yolande Nicholas DO PCP - General Internal Medicine 12/03/18 10/08/20 Anuj Priest DO PCP - General Internal Medicine 10/09/20 2 [facility], Pcp PCP - General Internal Medicine 06/17/21 documented as of this encounter
--- OUTSIDE RECORDS SUMMARY | 2024-07-11 14:39 | XMS_ITS | Encounter Summary ---
Author Organization [facility] Address [address] [place] [address] Care Team Providers Care Per Assessment Nurse Name Role Phone Annalee Jones MD Primary Care Provider Un available Yolande Nicholas DO Primary Care Pro vider Unavailable Anuj Priest DO Primary Care Provider Judy [facility], Pcp Primary Care Provider Unavailabl e Reason for Visit * Reason Onset Date Comments Prior Authorization 06/27/2018 sildenafil ( REVATIO) 20 MG tablet Encounter Details Date Type Department Care Team Description 06/27/2018 Telephone Adult [address] [address] Annalee Jones MD Prior Authorization (sildenafil (REVATIO) [...] thank you [place] [phone] Prior Auth [facility] Prior Authorizations Ext [phone] Fax: [phone] [place] [phone] Prior Auth pool * Telephone Encounter - Valerie Hagen - 07/05/2018 2:02 PM EST Dora from [place] calling the medication is not approved by the FDA for this pt's diagnosis please return call [phone] * Telephone Encounter - Annalee Jones MD - 07/05/2018 11:22 AM EST Please obtain urology consultation report * Telephone Encounter - Maggi [facility] - 07/05/2018 11:09 AM EST Ed meds are not covered by medicare, per pharmacy pt has been using discount card [place] p [phone] Prior Auth [facility] Prior Authorizations Ext [phone] Fax: [phone] reply back to p [phone] Prior Auth pool * Telephone Encounter - [...] What Pharmacy did the fax come from: [facility] fax #: [phone] [employer] Information from fax: What Prescription Plan does the patient have? BIN/PCN if applicable: N/A Cardholder ID:[id number] Person Code: N/A Relationship Code: N/A Help desk phone: [phone] documented in this encounter Plan of Treatment Not on file documented as of this encounter Visit Diagnoses Not on filedocumented in this encounter Care Teams Per Assessment Nurse Relationship Specialty Start Date End Date Annalee Jones MD PCP - General Internal Medicine 01/06/17 9 Yolande Nicholas DO PCP - General Internal Medicine 12/03/18 10/08/20 Anuj Priest DO PCP - General Internal Medicine 10/09/20 2 [facility], Pcp PCP - General Internal Medicine 06/17/21 documented as of this encounter
--- OUTSIDE RECORDS SUMMARY | 2024-07-11 14:40 | XMS_ITS ---
Author Organization [facility] on Care Team Providers Care Supervisor Opening And Picking Name Role Phone Vaishali Aguilar Unavailable Unavailable Noelle Edwards Unavailable Unavailable Valerie Wayne Unavailable Unavailable Allergies and adverse reactions No Known Allergies Care Team Name Role Address Phone Organization Dates Noelle Edwards PCP [address] [place] [address], [place], [address], [place] (Office[place] : [facility] 2020 - 02/20/2020 Vaishali Aguilar Attending Physician [address] [place] [address], [address], [place] (Office): : [facility] 2020 - 02/20/2020 Valerie Wayne Attending Physician [address] [place] [address] [place] [address], [address], [place] (Office): [facility] 2020 - 02/20/2020 Immunizations Immunization Status Vaccine Details Vaccine Code CodeSystem Date Notes Influenza completed Influenza, split virus, trivalent, injectable, contains preservative lotNumber: [id number] expiry: 10/28/2020 Mfg: Flucelavax Quadrivalent Given 0.5 ml Left Deltoid intramuscularly 141 CVX created date: 02/18/2020 consent date: 02/18/2020 administer ed date: 02/18/2020 Educated by Saray Saavedra on 02/18/2020 TB 2 Step Mantoux Skin Test completed tuberculin skin test; unspecified formulation lotNumber: [id number] expiry: 11/25/2021 Mfg: sanofi Pasteur limited Given [...] CodeSystem Concern Status 1 ANEMIA, UNSPECIFIED [address] active 2 BREAKDOWN (MECHANICAL) OF OTHER VASCULAR GRAFTS, INITIAL ENCOUNTER [address] active 3 CHRONIC KIDNEY DISEASE, STAGE 2 (MILD) [address] active 4 CHRONIC OBSTRUCTIVE PULMONARY DISEASE, UNSPECIFIED [address] active 5 COVID-[address] active 6 ENCOUNTER FOR SURGICAL AFTERCARE FOLLOWING SURGERY ON THE CIRCULATORY SYSTEM [address] active 7 ESSENTIAL (PRIMARY) HYPERTENSION [address] active 8 GENERALIZED ANXIETY DISORDER [address] active 9 MAJOR DEPRESSIVE DISORDER, RECURRENT, UNSPECIFIED [address] active 10 PAROXYSMAL ATRIAL FIBRILLATION [address] active 11 PERIPHERAL VASCULAR DISEASE, UNSPECIFIED [address] active Reason for Referral No Reasons for Referral Entered Social History Social History Observation Description Start Date End Date Code Code System Current Smoking Status Tobacco smoking consumption unknown 494130971 SNOMED CT Sex Assigned At Male 1945 16348-0 [facility] Vital Signs Code Code System Vitals Name Values and Units Timing Information 14744-9 [facility] Pain Level Value=1.0 02/20/2020 9279-1 [facility] Respiratory Rate Value=18.0 Units=/m in 02/20/2020 8462-4 [facility] Blood Pressure-Diastolic Value=60 Un its=mmHg 02/20/2020 8480-6 [facility] Blood Pressure-Systolic Dyqlu=045 Un its=mmHg 02/20/2020 8310-5 [facility] Body Temperature Value=97.6 Units=?? F 02/20/2020 8867-4 [facility] Heart rate Value=73.0 Units=/min 08767-2 [facility] O2 % BldC Oximetry Value=96.0 Units= % 02/20/2020 44477-0 [facility] Weight Zkisz=458.0 Units=Lbs 8302-2 [facility] Height Value=72.0 Units=Inches 02/12/2020
--- OUTSIDE RECORDS SUMMARY | 2024-07-11 14:40 | XMS_ITS | Encounter Summary ---
Author Organization [employer] Address [address] [facility] 7t [place] [address] Care Team Providers Care Communications Engineering Technician Name Role Phone Sesar Pereyra MD Primary Care Provider [phone]- [phone] Reason for Visit * Reason Onset Date Comments fyi 05/28/2024 Encounter Details Date Type Department Care Team ([facility] st Contact Info) Description 05/28/2024 Telephone [facility] MEDICINE [address] [place] [address] Sesar Pereyra MD [address] [place] [address] fy Social History Tobacco Use Types Packs/Day [...] - 05/28/2024 9:37 AM EST Tc from [facility] with [facility] Care informing pt verbalized to her that he been taking THD Gummies 2x a day morning and afternoon. Gummies are 10mg per gummy as he's aware of what he's taking. documented in this encounter Plan of Treatment Upcoming Encounters Date Type Department Care Team ([facility] st Contact Info) Description 09/11/2024 10:30 AM EDT Office Visit [facility] PEDS [address] [place] [address] Sesar Pereyra MD [address] [place] [address] documented as of this encounter Visit Diagnoses Not on filedocumented in this encounter Additional Health Concerns Assessment Noted Time PHQ-9 Depression Total Score: 16 024 10:59 AM EDT documented as of this encounter Care Teams Communications Engineering Technician Relationship Specialty Start Date End Date Sesar Pereyra MD [address] [place] [address] PCP - General Internal Medicine 03/01/21 [facility] 03/22/24 documented as of this encounter
--- OUTSIDE RECORDS SUMMARY | 2024-07-11 14:40 | XMS_ITS | Encounter Summary ---
Author Organization [facility] Address [address] [place] [address] Care Team Providers Care Medical Education Coordinator Name Role Phone Ghassan Burciaga MD Primary Care Provider Unavail able Pierre Arevalo MD Primary Care Provider Judy vailable Gerson Dawson MD Primary Care Provider Unavail able [facility], Pcp Primary Care Provider Unavailabl Coleman Sampson MD Primary Care Provider Unavaila Ayo Demarco MD Primary Care Provider [phone] Annalee Jones MD Primary Care Provider Un available Pascual Nicholasabela DO Primary Care Pro vider Unavailable Anuj Priest DO Primary Care Provider Judy vailable [facility], Pcp Primary Care Provider Unavailabl e Encounter Details Date Type Department Care Team Description 10/12/2009 Controlled Substance Contract with [facility] Medical Records [address] [place] [address] Abstract, Provider Social History Tobacco Use Types [...] filedocumented in this encounter Care Teams Medical Education Coordinator Relationship Specialty Start Date End Date Ghassan Burciaga MD PCP - General 07/24/00 05/06/13 Pierre Arevalo MD PCP - General Internal Medicine 05/07/13 4 Gerson Dawson MD PCP - General Internal Medicine 01/30/14 03/20/14 [facility], Pcp PCP - General Internal Medicine 03/21/14 05/06/14 Coleman Mccarthy MD PCP - General Internal Medicine 05/07/14 07/18/16 Ayo Carpio MD [address] [place] [address] PCP - General Internal Medicine 07/19/16 01/05/17 Annalee Jones MD [address] [place] [address] PCP - General Internal Medicine 01/06/17 12/02/18 Yolande Nicholas DO [address] [place] [address] PCP - General Internal Medicine 12/03/18 10/08/20 Anuj Priest DO [address] [place] [address] PCP - General Internal Medicine 10/09/20 06/16/21 [facility], Pcp PCP - General Internal Medicine 06/17/21 documented as of this encounter
--- OUTSIDE RECORDS SUMMARY | 2024-07-11 14:40 | XMS_ITS | Encounter Summary ---
Author Organization [facility] Address [address] [place] [address] Care Team Providers Care Shell Sieve Operator Name Role Phone Yolande Nicholas DO Primary Care Pro vider Unavailable Anuj Priest DO Primary Care Provider Judy álvarez [facility], Pcp Primary Care Provider Unavailabl e Encounter Details Date Type Department Care Team Description 05/04/2020 Live Games Dealer Report Medical Records [address] [place] [address] Dhruv Garcia MD Social History Tobacco Use [...] on filedocumented in this encounter Care Teams Shell Sieve Operator Relationship Specialty Start Date End Date Yolande Nihcolas DO PCP - General Internal Medicine 12/03/18 10/08/20 Aunj Priest DO PCP - General Internal Medicine 10/09/20 Molly Gardner, Pcp PCP - General Internal Medicine 06/17/21 documented as of this encounter
--- OUTSIDE RECORDS SUMMARY | 2024-07-11 14:40 | XMS_ITS | Encounter Summary ---
Author Organization [employer] Address [address] [facility] 7 [place] [address] Care Team Providers Care Oracle Database Analyst Name Role Phone Sesar Pereyra MD Primary Care Provider [phone] Encounter Details Date Type Department Care Team ([facility] Contact Info) Description 10/13/2022 Orders Only [facility] MED & PEDS [address] [place] [address] Sesar Pereyra MD [address] [place] [address] Social History Tobacco Use Types Packs/Day Years [...] [facility] P[facility]S [address] [place] [address] Sesar Pereyra MD [address] [place] [address] documented as of this encounter Visit Diagnoses Not on filedocumented in this encounter Care Teams Oracle Database Analyst Relationship Specialty Start Date End Date Sesar Pereyra MD [address] [place] [address] PCP - General Internal Medicine 03/01/21 [facility] 03/22/24 documented as of this encounter
--- OUTSIDE RECORDS SUMMARY | 2024-07-11 14:40 | XMS_ITS | Encounter Summary ---
Author Organization [facility] Address [address] [place] [address] Care Team Providers Care Bistro Attendant Name Role Phone Yolande Nicholas DO Primary Care Pro vider Unavailable Anuj Priest DO Primary Care Provider [facility], Pcp Primary Care Provider Unavailabl e Reason for Visit * Reason Onset Date Comments [facility] Call 02/25/2020 Encounter Details Date Type Department Care Team Description 02/25/2020 Telephone Adult Medicine [address] [address] Yolande Nicholas DO [facility] Call Social History [...] on filedocumented in this encounter Care Teams Bistro Attendant Relationship Specialty Start Date End Date Yolande Nicholas DO PCP - General Internal Medicine 12/03/18 10/08/20 Anuj Priest DO PCP - General Internal Medicine 10/09/[address] [place] [address], Pcp PCP - General Internal Medicine 06/17/21 documented as of this encounter
--- OUTSIDE RECORDS SUMMARY | 2024-07-11 14:40 | XMS_ITS | Encounter Summary ---
Author Organization [employer] Address [address] [facility] 7t [place] [address] Care Team Providers Care Waredresser Name Role Phone Sesar Pereyra MD Primary Care Provider [phone] Reason for Visit * Reason Comments Med Refill Encounter Details Date Type Department Care Team ([facility] Contact Info) Description 10/26/2022 Refill [facility] MED & PEDS [address] [place] [address] Sesar Pereyra MD [address] [place] [address] Social History Tobacco Use Types Packs/Day Years [...] Upcoming Encounters Date Type Department Care Team ([facility] Contact Info) Description 09/11/2024 10:30 AM EDT Office Visit [facility] [address] [place] [address] Sesar Pereyra MD [address] [place] [address] documented as of this encounter Visit Diagnoses Not on filedocumented in this encounter Care Teams Waredresser Relationship Specialty Start Date End Date Sesar Pereyra MD [address] [place] [address] PCP - General Internal Medicine 03/01/21 [facility] 03/22/24 documented as of this encounter
--- OUTSIDE RECORDS SUMMARY | 2024-07-11 14:40 | XMS_ITS | Encounter Summary ---
Author Organization [facility] Address [address] [place] [address] Care Team Providers Care Director Community Health Nursing Name Role Phone Yolande Nciholas DO Primary Care Pro vider Unavailable Anuj Priest DO Primary Care Provider Judy Gardner, Pcp Primary Care Provider Unavailabl e Encounter Details Date Type Department Care Team Description 04/13/2020 Wood Drill Operator Report Medical Records [address] [place] [address] Abstract, Provider Social History Tobacco Use Types [...] filedocumented in this encounter Care Teams Director Community Health Nursing Relationship Specialty Start Date End Date Yolande Nicholas DO PCP - General Internal Medicine 12/03/18 10/08/20 Anuj Priest DO PCP - General Internal Medicine 10/09/20 2 Jj, Pcp PCP - General Internal Medicine 06/17/21 documented as of this encounter
--- OUTSIDE RECORDS SUMMARY | 2024-07-11 14:40 | XMS_ITS | Encounter Summary ---
Author Organization [facility] Address [address] [place] [address] Care Team Providers Care Commercial Decorator Name Role Phone Ghassan Burciaga MD Primary Care Provider Unavail able Pierre Arevalo MD Primary Care Provider Judy vailable Gerson Dawson MD Primary Care Provider Unavail able [facility], Pcp Primary Care Provider Unavailabl e Coleman Mccarthy MD Primary Care Provider Unavaila Ayo Demarco MD Primary Care Provider [phone] Annalee Jones MD Primary Care Provider Un available Pascual Nicholasabela DO Primary Care Pro vider Unavailable Anuj Priest DO Primary Care Provider Judy vailable [facility], Pcp Primary Care Provider Unavailabl e Encounter Details Date Type Department Care Team Description 12/18/2009 Release of Information Medical Records [address] [place] [address] Abstract, Provider Social History Tobacco Use Types [...] filedocumented in this encounter Care Teams Commercial Decorator Relationship Specialty Start Date End Date Ghassan Burciaga MD PCP - General 07/24/00 05/06/13 Pierre Arevalo MD PCP - General Internal Medicine 05/07/13 4 Gerson Dawson MD PCP - General Internal Medicine 01/30/14 03/20/14 [facility], Pcp PCP - General Internal Medicine 03/21/14 05/06/14 Coleman Mccarthy MD PCP - General Internal Medicine 05/07/14 07/18/16 Ayo Carpio MD [address] [place] [address] PCP - General Internal Medicine 07/19/16 01/05/17 Annalee Jones MD [address] [place] [address] PCP - General Internal Medicine 01/06/17 12/02/18 Yolande Nicholas, [address] [place] [address] PCP - General Internal Medicine 12/03/18 10/08/20 Anuj Priest DO [address] [place] [address] PCP - General Internal Medicine 10/09/20 06/16/21 [facility], Pcp PCP - General Internal Medicine 06/17/21 documented as of this encounter
--- OUTSIDE RECORDS SUMMARY | 2024-07-11 14:40 | XMS_ITS | Encounter Summary ---
Author [facility] Address [address] [place] [address] Care Team Providers Care Before School Babysitter Name Role Phone Yolande Nicholas DO Primary Care Pro vider Unavailable Anuj Priest DO Primary Care Provider [facility], Pcp Primary Care Provider Unavailabl e Reason for Visit * Reason Onset Date Comments Faxed Refill 02/25/2020 Encounter Details Date Type Department Care Team Description 02/25/2020 Refill Adult Medicine [address] [address] Yolande Nicholas DO Faxed Refill Social History [...] - MEDICARE / Plan: MEDICARE FFS $5 [place] [id number] / Product Type: MEDICARE [id number] documented in this encounter Plan of Treatment Not on file documented as of this encounter Visit Diagnoses Not on filedocumented in this encounter Care Teams Before School Babysitter Relationship Specialty Start Date End Date Yolande Nicholas DO PCP - General Internal Medicine 12/03/18 10/08/20 Anuj Priest DO PCP - General Internal Medicine 10/09/[address] [place] [address], Pcp PCP - General Internal Medicine 06/17/21 documented as of this encounter
--- OUTSIDE RECORDS SUMMARY | 2024-07-11 14:40 | XMS_ITS | Encounter Summary ---
Author Organization [facility] Address [address] [place] [address] Care Team Providers Care Straw Hat Washer Operator Name Role Phone Ghassan Burciaga MD Primary Care Provider Unavail able Pierre Arevalo MD Primary Care Provider Judy vailable Gerson Dawson MD Primary Care Provider Unavail able [facility], Pcp Primary Care Provider Unavailabl e Coleman Mccarthy MD Primary Care Provider Unavaila Ayo Demarco MD Primary Care Provider [phone] Annalee Jones MD Primary Care Provider Un available Pascual Nicholasabela DO Primary Care Pro vider Unavailable Anuj Priest DO Primary Care Provider Judy vailable [facility], Pcp Primary Care Provider Unavailabl e Encounter Details Date Type Department Care Team Description 11/04/2006 Hospital Medical Records [address] [place], [place] [id number] [place] [address] Social History Tobacco Use Types Packs/Day Years [...] on filedocumented in this encounter Care Teams Straw Hat Washer Operator Relationship Specialty Start Date End Date Ghassan Burciaga MD PCP - General 07/24/00 05/06/13 Pierre Arevalo MD PCP - General Internal Medicine 05/07/13 4 Gerson Dawson MD PCP - General Internal Medicine 01/30/14 03/20/14 [facility], Pcp PCP - General Internal Medicine 03/21/14 05/06/14 Coleman Mccarthy MD PCP - General Internal Medicine 05/07/14 07/18/16 Ayo Carpio MD [address] [place], [place] [id number] PCP - General Internal Medicine 07/19/16 01/05/17 Annalee Jones MD [address] [place], [place] [address] PCP - General Internal Medicine 01/06/17 12/02/18 Yolande Nicholas DO [address] [place] [address] PCP - General Internal Medicine 12/03/18 10/08/20 Anuj Priest DO [address] [place] [address] PCP - General Internal Medicine 10/09/20 06/16/21 [facility], Pcp PCP - General Internal Medicine 06/17/21 documented as of this encounter
--- OUTSIDE RECORDS SUMMARY | 2024-07-11 14:40 | XMS_ITS | Encounter Summary ---
Author Organization [email or web address] Address [address] [facility] 7 [place] [address] Care Team Providers Care Shoe Shiner Name Role Phone Sesar Pereyra MD Primary Care Provider [phone] Reason for Visit * Reason Comments Med Refill Encounter Details Date Type Department Care Team ([facility] Contact Info) Description 06/10/2022 Refill [facility] MED & PEDS [address] [place] [address] Sesar Pereyra MD [address] [place] [address] Primary insomnia Social History Tobacco Use Types [...] Upcoming Encounters Date Type Department Care Team ([facility] Contact Info) Description 09/11/2024 10:30 AM EDT Office Visit [facility] MED & PEDS [address] [place] [address] Sesar Pereyra MD [address] [place] [address] documented as of this encounter Visit Diagnoses Diagnosis Primary insomnia Persistent disorder of initiating or maintaining sleep documented in this encounter Care Teams Shoe Shiner Relationship Specialty Start Date End Date Sesar Pereyra MD [address] [place] [address] PCP - General Internal Medicine 03/01/21 [facility] 03/22/24 documented as of this encounter
--- OUTSIDE RECORDS SUMMARY | 2024-07-11 14:40 | XMS_ITS | Encounter Summary ---
Author Organization [facility] Address [address] [place] [address] Care Team Providers Care Systems Manager Name Role Phone Yolande Nicholas DO Primary Care Pro vider Unavailable Anuj Priest DO Primary Care Provider [facility], Pcp Primary Care Provider Unavailabl e Reason for Visit * Reason Onset Date Comments Faxed Order 03/08/2020 Encounter Details Date Type Department Care Team Description 03/08/2020 Telephone Adult Medicine [address] [address] Yolande Nicholas DO Faxed Order Social History [...] review, sign, date, and fax back to [phone] * Telephone Encounter - Gerri Parra - 03/08/2020 2:16 PM EST [facility] IS FAXING ORDERS TO BE SIGN AND FAX BACK TO [phone]. documented in this encounter Plan of Treatment Not on file documented as of this encounter Visit Diagnoses Not on filedocumented in this encounter Care Teams Systems Manager Relationship Specialty Start Date End Date Yolande Nicholas DO PCP - General Internal Medicine 12/03/18 10/08/20 Anuj Priest DO PCP - General Internal Medicine 10/09/[address] [place] [address], Pcp PCP - General Internal Medicine 06/17/21 documented as of this encounter
--- OUTSIDE RECORDS SUMMARY | 2024-07-11 14:40 | XMS_ITS | Encounter Summary ---
Author Organization [employer] Address [address] [facility] 7t [place] [address] Care Team Providers Care Diesel Truck Driver Name Role Phone Sesar Pereyra MD Primary Care Provider [phone] Reason for Visit * Reason Onset Date Comments Lab Orders 05/30/2024 Referral 05/30/2024 Encounter Details Date Type Department Care Team (Late st Contact Info) Description 05/30/2024 Telephone [facility] MEDICINE [address] [place] [address] Sesar Pereyra MD [address] [place] [address] Lab Orders; Referral Social History Tobacco Use [...] Description 09/11/2024 10:30 AM EDT Office Visit [facility] MED [facility] PEDS [address] [place] [address] Sesar Pereyra MD [address] [place] [address] documented as of this encounter Visit Diagnoses Not on filedocumented in this encounter Additional Health Concerns Assessment Noted Time PHQ-9 Depression Total Score: 16 024 10:59 AM EDT documented as of this encounter Care Teams Diesel Truck Driver Relationship Specialty Start Date End Date Sesar Pereyra MD [address] [place] [address] PCP - General Internal Medicine 03/01/21 [facility] 03/22/24 documented as of this encounter
--- OUTSIDE RECORDS SUMMARY | 2024-07-11 14:40 | XMS_ITS | Encounter Summary ---
Author Organization [facility] Address [address] [place] [address] Care Team Providers Care Insulation Technician Name Role Phone Yolande Nicholas DO Primary Care Pro vider Unavailable Anuj Priest DO Primary Care Provider [facility], Pcp Primary Care Provider Unavailabl e Reason for Visit * Reason Onset Date Comments Faxed Order 03/29/2020 Encounter Details Date Type Department Care Team Description 03/29/2020 Telephone Adult [address] [address] Yolande Nicholas DO Faxed Order Social History [...] TO BE SIGN AND FAX BACK TO [phone]. documented in this encounter Plan of Treatment [...]
--- OUTSIDE RECORDS SUMMARY | 2024-07-11 14:40 | XMS_ITS | Encounter Summary ---
Author Organization [employer] Address [address] [facility] 7t [place] [address] Care Team Providers Care Shuttle Repairer Name Role Phone Sesar Pereyra MD Primary Care Provider [phone] Reason for Visit * Reason Comments Med Refill Encounter Details Date Type Department Care Team ([facility] Contact Info) Description 10/19/2022 Refill [facility] MED & PEDS [address] [place] [address] Sesar Pereyra MD [address] [place] [address] Social History Tobacco Use Types Packs/Day Years [...] Encounters Date Type Department Care Team ([facility] Contact Info) Description 09/11/2024 10:30 AM EDT Office Visit [facility] MED & PEDS [address] [place] [address] Sesar Pereyra MD [address] [place] [address] documented as of this encounter Visit Diagnoses Not on filedocumented in this encounter Care Teams Shuttle Repairer Relationship Specialty Start Date End Date Sesar Pereyra MD [address] [place] [address] PCP - General Internal Medicine 03/01/21 [facility] 03/22/24 documented as of this encounter
--- OUTSIDE RECORDS SUMMARY | 2024-07-11 14:40 | XMS_ITS | Clinical Summary ---
Author Organization Unknown Care Team Providers Care Clinical Quality Assurance Associate Name Role Phone MARCO RAMIREZ, POOJA Unavailable Unavailabl e BARBARA PT, COURTNEY Unavailable Unavailable SHERYL SPOT WORKER, JANETT Unavailable Unavailable LESLYE RN, DAGOBERTO Unavailable Unavailab abraham [facility] NURSE, ANTONIO Unavailable Unavailable READING OT, JOANIE Unavailable Unavailable CHANEY WIRE TESTER, TIA Unavailable Unavailable Payers Payer Name Policy Type Policy Number Effective Date Expira tion Date [facility] [id number] Problems Condition Name Condition Details Condition Category [...] 2023-05 00:00: 00 ATHSCL HEART DISEASE OF [place] CORONARY ARTERY W/O ANG PCTRS Active 05-01 [...] HISTORY OF COVID-19 Active 2023-05 00:00: 00 [facility] (CURRENT) USE OF ANTICOAGULAN TS Active 2023-05 [...] 2023-05 00:00: 00 05-16 23:59 :00 No [id number] PAIN 15 mg EVERY 6 HOURS NEEDED 15 mg EVERY 6 HOURS NEEDED (route: oral) Med Classific ation: Analgesic , Anti-infl ammatory or Antipyret ic clonazepam 0.5 mg tablet 2023-05 00:00: 00 Yes [id number] ANXIETY 0.5 mg 2 TIMES DAILY 0.5 mg 2 TIMES DAILY (route: oral) Med Classific ation: Central Nervous System Agents lisinopril 40 mg tablet 2023-05 00:00: 00 03-21 23:59 :00 No [id number] CAD 40 mg DAILY 40 mg DAILY (route: oral) Med Classific ation: Cardiovas cular Therapy Agents atorvastati n 80 mg tablet 2023-05 00:00: 00 Yes [id number] HYPERTENSIO N 80 mg DAILY 80 mg DAILY (route: oral) Med Classific ation: Cardiovas cular Therapy Agents cilostazol 50 mg tablet 2023-05 00:00: 00 Yes [id number] HYPERTENSIO N 50 mg 2 TIMES DAILY 50 mg 2 TIMES DAILY (route: oral) Med Classific ation: Hematolog ical Agents clopidogrel 75 mg tablet 2023-05 00:00: 00 03-21 23:59 :00 No [id number] CORONARY ARTERY DISEASE 75 mg DAILY 75 mg DAILY (route: oral) Med Classific ation: Hematolog ical Agents Eliquis 5 mg tablet 2023-05 00:00: 00 Yes [id number] ANTI ARRHYTHMIC 5 mg 2 TIMES DAILY 5 mg 2 TIMES DAILY (route: oral) Med Classific ation: Hematolog ical Agents furosemide 40 mg tablet 2023-05 00:00: 00 03-21 23:59 :00 No [id number] BPH 40 mg DAILY 40 mg DAILY (route: oral) Alternate Route: INTRA-MUS CULAR. Med Classific ation: Cardiovas cular Therapy Agents metoprolol tartrate 50 mg tablet 2023-05 00:00: 00 03-22 23:59 :00 No [id number] CAD 50 mg DAILY 50 mg DAILY (route: oral) Med Classific ation: Cardiovas cular Therapy Agents quetiapine 25 mg tablet 2023-05 00:00: 00 Yes [id number] MOOD STABILIZER 25 mg 2 TIMES DAILY 25 mg 2 TIMES DAILY (route: oral) Med Classific ation: Central Nervous System Agents sertraline 50 mg tablet 2023-05 00:00: 00 Yes [id number] MOOD STABILIZER 50 mg DAILY 50 mg DAILY (route: oral) Med Classific ation: Central Nervous System Agents tamsulosin 0.4 mg capsule 2023-05 00:00: 00 Yes [id number] BPH 0.4 mg DAILY 0.4 mg DAILY (route: oral) Med Classific ation: Genitouri nary Therapy docusate sodium 100 mg tablet 2023-05 00:00: 00 Yes [id number] CONSTIPATIO N 100 mg DAILY 100 mg DAILY (route: oral) Med Classific ation: Gastroint estinal Therapy Agents gabapentin 100 mg capsule 2023-05 00:00: 00 Yes [id number] PAIN 1-3 capsule BEDTIME 1-3 capsule BEDTIME (route: oral) Med Classific ation: Central Nervous System Agents metoprolol tartrate 25 mg tablet 2023-05 00:00: 00 03-27 16:09 :43.1 53 No [id number] HYPERTENSIO N 25 mg 2 TIMES DAILY 25 mg 2 TIMES DAILY (route: oral) Med Classific ation: Cardiovas cular Therapy Agents Multaq 400 mg tablet 2023-05 00:00: 00 Yes [id number] ANTIARRHYTH MICHAEL 400 mg 2 TIMES DAILY 400 mg 2 TIMES DAILY (route: oral) Med Classific ation: Cardiovas cular Therapy Agents furosemide 40 mg tablet 2023-05 00:00: 00 Yes [id number] edema 1 tablet DAILY 1 tablet DAILY (route: oral) Med Classific ation: Cardiovas cular Therapy Agents dextroamphe tamine-amph etamine 7.5 mg tablet 2023-05 00:00: 00 Yes [id number] attention 1 tablet DAILY 1 tablet DAILY (route: oral) Med Classific ation: Central Nervous System Agents metoprolol tartrate 25 mg tablet 2023-05 00:00: 00 Yes [id number] heart rate 0.5 tablet 2 TIMES DAILY 0.5 tablet 2 TIMES DAILY (route: oral) Med Classific ation: Cardiovas cular Therapy Agents cephalexin 500 mg capsule 2023-05 00:00: 00 04-10 23:59 :00 No [id number] CELLULITIS LLL 500 mg 4 TIMES DAILY 500 mg 4 TIMES DAILY (route: oral) Med Classific ation: Anti-Infe ctive Agents hydralazine 25 mg tablet 2023-05 00:00: 00 Yes [id number] HTN 25 mg 2 TIMES DAILY 25 [...] CONSULTING PHYSICIANS. RN TO OBSERVE AND ASSESS, WIRE TESTER/PLANT SCIENTIST TO OBSERVE FOR RISK FOR FALLS AND INSTRUCT IN FALL PREVENTION, HOME SAFETY, MEDICATION MANAGEMENT, INFECTION PREVENTION, AND NUTRITION MANAGEMENT. RN/WIRE TESTER/PLANT SCIENTIST NURSE MAY PERFORM O2 SATURATION LEVEL ON ADMISSION AND PRN FOR RN TO ASSESS/WIRE TESTER TO OBSERVE PATIENT, WITH NOTIFICATION TO THE PHYSICIAN IF SATURATION IS 90% IN THE ABSENCE OF MORE SPECIFIC PARAMETERS FROM THE PHYSICIAN. AGENCY MAY PERFORM A RESUMPTION OF CARE VISIT FOLLOWING ANY HOSPITAL ADMISSION. RN/WIRE TESTER/PLANT SCIENTIST TO MONITOR CO-MORBID CONDITIONS LISTED ON THE PLAN OF CARE AND ANY NEW CONDITIONS THAT PRESENT THEMSELVES DURING THIS EPISODE TO IDENTIFY CHANGES AND INTERVENE TO MINIMIZE COMPLICATIONS. [code = RN TO OBSERVE, ASSESS, EVALUATE, AND DEVELOP AN INDIVIDUALIZED PLAN OF CARE. AGENCY MAY ACCEPT ORDERS FROM CONSULTING PHYSICIANS. RN TO OBSERVE AND ASSESS, WIRE TESTER/PLANT SCIENTIST TO OBSERVE FOR RISK FOR FALLS AND INSTRUCT IN FALL PREVENTION, HOME SAFETY, MEDICATION MANAGEMENT, INFECTION PREVENTION, AND NUTRITION MANAGEMENT. RN/WIRE TESTER/PLANT SCIENTIST NURSE MAY PERFORM O2 SATURATION LEVEL ON ADMISSION AND PRN FOR RN TO ASSESS/WIRE TESTER TO OBSERVE PATIENT, WITH NOTIFICATION TO THE PHYSICIAN IF SATURATION IS 90% IN THE ABSENCE OF MORE SPECIFIC PARAMETERS FROM THE PHYSICIAN. AGENCY MAY PERFORM A RESUMPTION OF CARE VISIT FOLLOWING ANY HOSPITAL ADMISSION. RN/WIRE TESTER/PLANT SCIENTIST TO MONITOR CO-MORBID CONDITIONS LISTED ON THE PLAN OF CARE AND ANY NEW CONDITIONS THAT PRESENT THEMSELVES DURING THIS EPISODE TO IDENTIFY CHANGES AND INTERVENE TO MINIMIZE COMPLICATIONS.] Future Scheduled Test MEDICATION MANAGEMENT; RN/WIRE TESTER/PLANT SCIENTIST TO REVIEW MEDICATIONS FOR INTERACTIONS, EFFECTIVENESS OF DRUG THERAPY, AND SIGNS/SYMPTOMS OF ADVERSE REACTIONS. MAY INSTRUCT AND REINFORCE MEDICATION TEACHING RELATED TO THE USE OF MEDICATIONS, DOSAGE, FREQUENCY, PURPOSE, SIDE EFFECTS, AND TO REPORT COMPLICATIONS. HELP SET UP BUBBLE PACKS [code = MEDICATION MANAGEMENT; RN/WIRE TESTER/PLANT SCIENTIST TO REVIEW MEDICATIONS FOR INTERACTIONS, EFFECTIVENESS OF DRUG THERAPY, AND SIGNS/SYMPTOMS OF ADVERSE REACTIONS. MAY INSTRUCT AND REINFORCE MEDICATION TEACHING RELATED TO THE USE OF MEDICATIONS, DOSAGE, FREQUENCY, PURPOSE, SIDE EFFECTS, AND TO REPORT COMPLICATIONS. HELP SET UP BUBBLE PACKS] Future Scheduled Test RISK FOR H OSPITALIZATION; RN TO ASSESS/TEACH, PLANT SCIENTIST/WIRE TESTER TO OBSERVE/TEACH PATIENT/CAREGIVER ON RISK FOR HOSPITALIZATION/EMERGENCY ROOM VISITS, TEACH SIGNS AND SYMPTOMS THAT PUT PATIENT AT RISK, WHEN TO NOTIFY NURSE/PHYSICIAN OF COMPLICATIONS/DECLINE, AND WHEN TO CALL 911. [code = RISK FOR HOSPITALIZATION; RN TO ASSESS/TEACH, PLANT SCIENTIST/WIRE TESTER TO OBSERVE/TEACH PATIENT/CAREGIVER ON RISK FOR HOSPITALIZATION/EMERGENCY ROOM VISITS, TEACH SIGNS AND SYMPTOMS THAT PUT PATIENT AT RISK, WHEN TO NOTIFY NURSE/PHYSICIAN OF COMPLICATIONS/DECLINE, AND WHEN TO CALL 911.] Future Scheduled Test CARDIOVASC ULAR SYSTEM; RN TO ASSESS/TEACH, WIRE TESTER/PLANT SCIENTIST TO OBSERVE/TEACH RELATED TO ALTERED CARDIOVASCULAR STATUS TO MINIMIZE COMPLICATIONS AND REDUCE HOSPITALIZATION. [code = CARDIOVASCULAR SYSTEM; RN TO ASSESS/TEACH, WIRE TESTER/PLANT SCIENTIST TO OBSERVE/TEACH RELATED TO ALTERED CARDIOVASCULAR STATUS TO MINIMIZE COMPLICATIONS AND REDUCE HOSPITALIZATION.] Future Scheduled Test HYPERTENSI ON MANAGEMENT; RN TO ASSESS AND TEACH, WIRE TESTER/PLANT SCIENTIST TO OBSERVE AND TEACH WARNING SIGNS AND SYMPTOMS TO AVOID HOSPITALIZATION. [code = HYPERTENSION MANAGEMENT; RN TO ASSESS AND TEACH, WIRE TESTER/PLANT SCIENTIST TO OBSERVE AND TEACH WARNING SIGNS AND SYMPTOMS TO AVOID HOSPITALIZATION.] Future Scheduled Test ARRHYTHMIA MANAGEMENT; RN TO ASSESS AND TEACH, WIRE TESTER/PLANT SCIENTIST TO OBSERVE AND TEACH WARNING SIGNS AND SYMPTOMS TO AVOID HOSPITALIZATION. [code = ARRHYTHMIA MANAGEMENT; RN TO ASSESS AND TEACH, WIRE TESTER/PLANT SCIENTIST TO OBSERVE AND TEACH WARNING SIGNS AND SYMPTOMS TO AVOID HOSPITALIZATION.] Future Scheduled Test SKIN INTEG RITY RN TO ASSESS AND TEACH, WIRE TESTER/PLANT SCIENTIST TO OBSERVE AND TEACH INTEGUMENTARY STATUS TO IDENTIFY CHANGES AND INTERVENE TO MINIMIZE COMPLICATIONS. PROVIDE SKILLED TEACHING OF GENERAL WOUND AND SKIN CARE AND PREVENTION RELATED TO POTENTIAL FOR ALTERED SKIN INTEGRITY [code = SKIN INTEGRITY RN TO ASSESS AND TEACH, WIRE TESTER/PLANT SCIENTIST TO OBSERVE AND TEACH INTEGUMENTARY STATUS TO IDENTIFY CHANGES AND INTERVENE TO MINIMIZE COMPLICATIONS. PROVIDE SKILLED TEACHING OF GENERAL WOUND AND SKIN CARE AND PREVENTION RELATED TO POTENTIAL FOR ALTERED SKIN INTEGRITY ] Future Scheduled Test PAIN MANAG EMENT; RN TO ASSESS AND TEACH, PLANT SCIENTIST/WIRE TESTER TO OBSERVE AND TEACH AND PROVIDE EDUCATION ON PAIN MANAGEMENT TECHNIQUES. [code = PAIN MANAGEMENT; RN TO ASSESS AND TEACH, PLANT SCIENTIST/WIRE TESTER TO OBSERVE AND TEACH AND PROVIDE EDUCATION ON PAIN MANAGEMENT TECHNIQUES.] Future Scheduled Test FALL REDUC TION MANAGEMENT; RN TO ASSESS AND OBSERVE, WIRE TESTER/PLANT SCIENTIST TO OBSERVE FALL RISK FACTORS AND EDUCATE PATIENT/CAREGIVER ON STRATEGIES TO MINIMIZE THE RISK OF FALLING. [code = FALL REDUCTION MANAGEMENT; RN TO ASSESS AND OBSERVE, WIRE TESTER/PLANT SCIENTIST TO OBSERVE FALL RISK FACTORS AND EDUCATE PATIENT/CAREGIVER ON STRATEGIES TO MINIMIZE THE RISK OF FALLING.] Future Scheduled Test RESPIRATOR Y SYSTEM MANAGEMENT; RN TO ASSESS AND TEACH, WIRE TESTER/PLANT SCIENTIST TO OBSERVE AND TEACH RELATED TO ALTERED RESPIRATORY STATUS TO MINIMIZE COMPLICATIONS AND REDUCE HOSPITALIZATION. [code = RESPIRATORY SYSTEM MANAGEMENT; RN TO ASSESS AND TEACH, WIRE TESTER/PLANT SCIENTIST TO OBSERVE AND TEACH RELATED TO ALTERED [...] End Date/Time Encounter Type Admission Type Attending [facility] Care Department Encounter ID Discharge Date Discharge Status Discharge Condition Discharge Reason Percent Goals Met 2024-03-22 00:00:00 2024-07-19 00:00:00 Outpatient RECERTIFIC ATDAGOBERTO HARTMAN [facility] [id number] 17.50
--- OUTSIDE RECORDS SUMMARY | 2024-07-11 14:40 | XMS_ITS | Encounter Summary ---
Author Organization [employer] [facility] Address [address] [place] [address] Care Team Providers Care Gold Reclaimer Name Role Phone Yolande Nicholas DO Primary Care Pro vider Unavailable Anuj Priest DO Primary Care Provider [facility], Pcp Primary Care Provider Unavailabl e Reason for Visit * Reason Onset Date Comments Assignment Desk Editor Feedback 02/18/[address] Encounter Details Date Type Department Care Team Description 02/18/2019 Telephone Adult [address] [address] Yolande Nicholas DO Assignment Desk Editor Feedback (Low Dose CT) Social History Tobacco [...] on filedocumented in this encounter Care Teams Gold Reclaimer Relationship Specialty Start Date End Date Yolande Nicholas DO PCP - General Internal Medicine 12/03/18 10/08/20 Anuj Priest DO PCP - General Internal Medicine 10/09/20 2 [facility], Pcp PCP - General Internal Medicine 06/17/21 documented as of this encounter
--- OUTSIDE RECORDS SUMMARY | 2024-07-11 14:40 | XMS_ITS | Encounter Summary ---
Author Organization [facility] Address [address] [place] [address] Care Team Providers Care Pulling Unit Operator Name Role Phone Yolande Nicholas DO Primary Care Pro vider Unavailable Anuj Priest DO Primary Care Provider [facility], Pcp Primary Care Provider Unavailabl e Reason for Visit * Reason Onset Date Comments Faxed Order 03/03/2020 Encounter Details Date Type Department Care Team Description 03/03/2020 Telephone Adult [address] [address] Yolande Nicholas DO Faxed Order Social History [...] on filedocumented in this encounter Care Teams Pulling Unit Operator Relationship Specialty Start Date End Date Yolande Nicholas DO PCP - General Internal Medicine 12/03/18 10/08/20 Anuj Priest DO PCP - General Internal Medicine 10/09/[address] [place] [address], Pcp PCP - General Internal Medicine 06/17/21 documented as of this encounter
--- OUTSIDE RECORDS SUMMARY | 2024-07-11 14:40 | XMS_ITS | Encounter Summary ---
Author Organization [facility] Address [address] [place] [address] Care Team Providers Care General Pediatrician Name Role Phone Yolande Nicholas DO Primary Care Pro vider Unavailable Anuj Priest DO Primary Care Provider [facility], Pcp Primary Care [facility] Encounter Details Date Type Department Care Team Description 03/30/2020 Pt. Non Urgent Medic al Question Adult Medicine [address] [address] Yolande Nicholas DO Social History Tobacco Use [...] Subject: PT for Arun Nettles [place] [facility], [facility] has recommended that Arun receive P.T. LASHAWN. [...] on filedocumented in this encounter Care Teams General Pediatrician Relationship Specialty Start Date End Date Yolande Nicholas DO PCP - General Internal Medicine 12/03/18 10/08/20 Anuj Priest DO PCP - General Internal Medicine 10/09/[address] [place] [address], Pcp PCP - General Internal Medicine 06/17/21 documented as of this encounter
--- OUTSIDE RECORDS SUMMARY | 2024-07-11 14:40 | XMS_ITS | Encounter Summary ---
Author Organization [employer] Address [address] [facility] [address] [place] [address] Care Team Providers Care Machine Joint Cutter Name Role Phone Sesar Pereyra MD Primary Care Provider [phone] Reason for Visit * Reason Onset Date Comments Med Refill 04/18/2024 Encounter Details Date Type Department Care Team ([facility] st Contact Info) Description 04/18/2024 Telephone [facility] MEDICINE [address] [place] [address] Sesar Pereyra MD [address] [place] [address] Med Refill Social History Tobacco Use Types [...] needing refill : To be sent to: [facility] - [place], [place] - [address] [place] [address] STEET documented in this encounter Plan of Treatment Upcoming Encounters Date Type Department Care Team (Late st Contact Info) Description 09/11/2024 10:30 AM EDT Office Visit [facility] CH[facility] MED & PEDS [address] [place] [address] Sesar Pereyra MD [address] [place] [address] documented as of this encounter Visit Diagnoses Not on filedocumented in this encounter Additional Health Concerns Assessment Noted Time PHQ-9 Depression Total Score: 16 024 10:59 AM EDT documented as of this encounter Care Teams Machine Joint Cutter Relationship Specialty Start Date End Date Sesar Pereyra MD [address] [place] [address] PCP - General Internal Medicine 03/01/21 [facility] 03/22/24 documented as of this encounter
--- OUTSIDE RECORDS SUMMARY | 2024-07-11 14:40 | XMS_ITS | Encounter Summary ---
Author Organization [employer] 2014[employer] Address [address] [facility] [address] [place] [address] Care Team Providers Care Pool Cleaner Name Role Phone Sesar Pereyra MD Primary Care Provider [phone]- [phone] Encounter Details Date Type Department Care Team (Late st Contact Info) Description 05/30/2024 Telephone [facility] MEDICINE [address] [place] [address] Sesar Pereyra MD [address] [place] [address] Social History Tobacco Use Types Packs/Day Years [...] [facility] [address] [place] [address] Sesar Pereyra MD [address] [place] [address] documented as of this encounter Visit Diagnoses Not on filedocumented in this encounter Additional Health Concerns Assessment Noted Time PHQ-9 Depression Total Score: 16 024 10:59 AM EDT documented as of this encounter Care Teams Pool Cleaner Relationship Specialty Start Date End Date Sesar Pereyra MD [address] [place] [address] PCP - General Internal Medicine 03/01/21 [facility] 03/22/24 documented as of this encounter
--- OUTSIDE RECORDS SUMMARY | 2024-07-11 14:41 | XMS_ITS | Encounter Summary ---
Author Organization [facility] Address [address] [place] [address] Care Team Providers Care Sales Project Manager Name Role Phone Ghassan Burciaga MD Primary Care Provider Unavail able Pierre Arevalo MD Primary Care Provider Judy vailable Gerson Dawson MD Primary Care Provider Unavail able [facility], Pcp Primary Care Provider Unavailabl e Coleman Mccarthy MD Primary Care Provider Unavaila Ayo Demarco MD Primary Care Provider [phone] Annalee Jones MD Primary Care Provider Un available Pascual Nicholasabela DO Primary Care Pro vider Unavailable Anuj Priest DO Primary Care Provider Judy vailable [facility], Pcp Primary Care Provider Unavailabl e Encounter Details Date Type Department Care Team Description 09/17/2010 Alignment Mechanic Report Medical Records [address] [place] [address] Jayshree Meade Social History Tobacco Use Types [...] filedocumented in this encounter Care Teams Sales Project Manager Relationship Specialty Start Date End Date Ghassan Burciaga MD PCP - General 07/24/00 05/06/13 Pierre Arevalo MD PCP - General Internal Medicine 05/07/13 4 Gerson Dawson MD PCP - General Internal Medicine 01/30/14 03/20/14 [facility], Pcp PCP - General Internal Medicine 03/21/14 05/06/14 Coleman Mccarthy MD PCP - General Internal Medicine 05/07/14 07/18/16 Ayo Carpio MD [address] [place] [address] PCP - General Internal Medicine 07/19/16 01/05/17 Annalee Jones MD [address] [place] [address] PCP - General Internal Medicine 01/06/17 12/02/18 Yolande Nicholas DO [address] [place] [address] PCP - General Internal Medicine 12/03/18 10/08/20 Anuj Priest DO [address] [place] [address] PCP - General Internal Medicine 10/09/20 06/16/21 [facility], Pcp PCP - General Internal Medicine 06/17/21 documented as of this encounter
--- OUTSIDE RECORDS SUMMARY | 2024-07-11 14:41 | XMS_ITS | Encounter Summary ---
Author Organization [facility] Address [address] [place] [address] Care Team Providers Care Nurses Medical Assistants Phlebotomists Name Role Phone Yolande Nicholas DO Primary Care Pro vider Unavailable Anuj Priest DO Primary Care Provider Judy Gardner, Pcp Primary Care Provider Unavailabl e Encounter Details Date Type Department Care Team Description 03/14/2019 Release of Information Medical Records [address] [place] [address] Abstract, Provider Social History Tobacco Use Types [...] on filedocumented in this encounter Care Teams Nurses Medical Assistants Phlebotomists Relationship Specialty Start Date End Date Yolande Nicholas DO PCP - General Internal Medicine 12/03/18 10/08/20 Anuj Priest DO PCP - General Internal Medicine 10/09/20 2 [facility], Pcp PCP - General Internal Medicine 06/17/21 documented as of this encounter
--- OUTSIDE RECORDS SUMMARY | 2024-07-11 14:41 | XMS_ITS | Encounter Summary ---
Author Organization [facility] Address [address] [place] [address] Care Team Providers Care Or Manager Name Role Phone Ghassan Burciaga MD Primary Care Provider Unavail able Pierre Arevalo MD Primary Care Provider Judy vailable Gerson Dawson MD Primary Care Provider Unavail able [facility], Pcp Primary Care Provider Unavailabl e Coleman Mccarthy MD Primary Care Provider Unavaila Ayo Demarco MD Primary Care Provider [phone] Annalee Jones MD Primary Care Provider Un available Pascual Nicholasabela DO Primary Care Pro vider Unavailable Anuj Priest DO Primary Care Provider Judy vailable [facility], Pcp Primary Care Provider Unavailabl e Encounter Details Date Type Department Care Team Description 08/27/2010 Circulation Sales Representative Report Medical Records [address] [place] [address] Anuj [place] Social History Tobacco Use Types [...] on filedocumented in this encounter Care Teams Or Manager Relationship Specialty Start Date End Date Ghassan Burciaga MD PCP - General 07/24/00 05/06/13 Pierre Arevalo MD PCP - General Internal Medicine 05/07/13 4 Gerson Dawson MD PCP - General Internal Medicine 01/30/14 03/20/14 [facility], Pcp PCP - General Internal Medicine 03/21/14 05/06/14 Coleman Mccarthy MD PCP - General Internal Medicine 05/07/14 07/18/16 Ayo Carpio MD [address] [place] [address] PCP - General Internal Medicine 07/19/16 01/05/17 Annalee Jones MD [address] [place] [address] PCP - General Internal Medicine 01/06/17 12/02/18 Yolande Nicholas, [address] [place] [address] PCP - General Internal Medicine 12/03/18 10/08/20 Anuj Priest DO [address] [place] [address] PCP - General Internal Medicine 10/09/20 06/16/21 [facility], Pcp PCP - General Internal Medicine 06/17/21 documented as of this encounter
--- OUTSIDE RECORDS SUMMARY | 2024-07-11 14:41 | XMS_ITS | Encounter Summary ---
Author Organization [facility] Address [address] [place] [address] Care Team Providers Care Solar System Installer Name Role Phone Yolande Nicholas DO Primary Care Pro vider Unavailable Anuj Priest DO Primary Care Provider [facility], Pcp Primary Care Provider Unavailabl e Reason for Visit * Reason Onset Date Comments Faxed Refill 05/30/2019 Encounter Details Date Type Department Care Team Description 05/30/2019 Refill Adult Medicine [address] [address] Yolande Nicholas DO Faxed Refill Social History [...] the RX # listed on the fax? [id number] Patients current insurance carrier is: Payor: [facility] - MEDICARE / Plan: MEDICARE FFS [facility] [id number] / Product Type: MEDICARE [id number] documented in this encounter Plan of Treatment Not on file documented as of this encounter Visit Diagnoses Not on filedocumented in this encounter Care Teams Solar System Installer Relationship Specialty Start Date End Date Yolande Nicholas DO PCP - General Internal Medicine 12/03/18 10/08/20 Anuj Priest DO PCP - General Internal Medicine 10/09/[address] [place] [address], Pcp PCP - General Internal Medicine 06/17/21 documented as of this encounter
--- OUTSIDE RECORDS SUMMARY | 2024-07-11 14:41 | XMS_ITS | Continuity of Care Document ---
Author Organization [employer] Address [address] [place] [address] Insurance Providers Payer Plan Claims Address Claims Phone Policy Number Group Number Relation Employer Guarantor Name Guarantor Guarantor Address Guarantor Phone AARP Medic are Advan tage Plan [id number] Self Alex Nettles 1945 [address] [place], [place] [id number] [employer] Medic are [id number] Self Alex Nettles [address] [place] [address] [id number] Healt h Safet y Net Parti al [id number] Self Alex Nettles 1945 [address] [place], [place] [id number] Problems Unknown Problems Results Test Value / Unit Interpretation Reference Ran Tho [id number] Allergies, adverse reactions, alerts No known allergies and adverse reactions Medications No administered medications reported Vital Signs No vital signs reported Social History No smoking Hx information available
[2024-07-11 16:03] LABS: Reflex Lactate? 2 Y
[2024-07-11 16:33] LABS: ~Lactic Acid-LAB USE ONLY 2.6 mmol/L (0.5-2.0)
--- NOTE | 2024-07-11 16:33 | PC.NURSE ---
Critical lactic of 2.6 taken from lab, primary RN Amalia to be made aware.
[2024-07-11 16:54] LABS: Cancel Lactic Acid Canceled
--- NOTE | 2024-07-11 16:55 | PC.NURSE ---
Roberth YUN aware of repeat lactic, will d/c future lactics and this RN inquired about pain meds for left shoulder,pt reports taking Oxy 5mg PRN at home
[2024-07-11] MEDS: Morphine Sulfate 2 MG/ML CARTRIDGE IVPUSH ×2 (17:28→22:22)
[2024-07-12] VITALS (9 sets, daily range): BP systolic 127–152; BP diastolic 60–68; PULSE 62–73; RESP 18–20; TEMP 36.8–37.6; O2SAT 91–95
[2024-07-12] MEDS: Morphine Sulfate 2 MG/ML CARTRIDGE IVPUSH ×2 (01:26→07:47)
[2024-07-12] MEDS: Acetaminophen 325 MG TABLET 650 MG PO (01:26)
[2024-07-12] MEDS: 0.9 % Sodium Chloride Flush 3 ML SYRINGE IVFLUSH (01:43)
[2024-07-12 06:37] LABS: Hematocrit 36.5 % (42.0-52.0); Hemoglobin 12.3 g/dl (14.0-18.0); Mean Corpuscular HGB Conc 33.7 g/dl (31.0-36.0); Mean Corpuscular Hemoglobin 30.8 pg (27.0-33.0); Mean Corpuscular Volume 91.3 fL (80.0-98.0); Mean Platelet Volume 9.3 fL (9.4-12.4); Platelet Count 285 X10*3/uL (160-400); Red Cell Distribution Width 15.3 % (11.0-16.0); White Blood Count 17.8 X10*3/uL (4.8-10.8)
[2024-07-12 06:50] LABS: Anion Gap 9 (12-20); Blood Urea Nitrogen 19 mg/dL (9-16); Calcium 8.9 mg/dL (8.4-10.2); Carbon Dioxide 25 mmol/L (22-29); Chloride 109 mmol/L (96-108); Creatinine Clr Calc Pharmacy 76.7; Estimated Glomerular Filt Rate > 60; Glucose Random 92 mg/dL (60-115); Potassium 4.2 mmol/L (3.3-5.1); Sodium 139 mmol/L (135-145)
--- NOTE | 2024-07-12 08:36 | MHC.CM.PN ---
CM met with Patient at bedside and addressed IMM with him; original has been given to Patient and a copy has been placed on the chart. Patient lives in a house with his Girlfriend/HCP/Ame and he receives services through [facility] and Homemaking from [facility]. PT is recommending STR but Patient has declined and wants to return home with the services he has. CM has initiated and will follow for dc planning. PCP is Dr. Sesar Pereyra and Girlfriend will transport to home. Patient required no DME [employer] and he has a Brother/Natanael who is also supportive.
[2024-07-12] MEDS: Amphetamine Mixed Salts 10 MG TABLET 7.5 MG PO (08:37)
[2024-07-12] MEDS: clonazePAM 0.5 MG TABLET PO ×2 (08:37→20:48)
[2024-07-12] MEDS: Metoprolol Tartrate 12.5 MG HALFTAB PO ×2 (08:38→20:47)
[2024-07-12] MEDS: Furosemide 40 MG TABLET PO (08:38)
[2024-07-12] MEDS: Atorvastatin Calcium 80 MG TABLET PO (08:38)
[2024-07-12] MEDS: Aspirin Enteric Coated 81 MG TABLET.DR PO (08:38)
[2024-07-12] MEDS: Tamsulosin HCL 0.4 MG CAPSULE PO (08:38)
[2024-07-12] MEDS: Sertraline HCL 50 MG TABLET PO (08:38)
[2024-07-12] MEDS: Apixaban 5 MG TABLET PO ×2 (08:38→20:47)
[2024-07-12] MEDS: hydrALAZINE HCl 25 MG TABLET PO ×2 (08:38→20:47)
[2024-07-12] MEDS: Docusate Sodium 100 MG CAPSULE PO (08:38)
[2024-07-12] MEDS: cilostazoL 50 MG TABLET PO ×2 (08:38→20:48)
[2024-07-12] MEDS: QUEtiapine Fumarate 25 MG TABLET PO ×2 (08:38→20:47)
[2024-07-12] MEDS: Dronedarone HCl 400 MG TABLET PO ×2 (08:38→20:47)
[2024-07-12] MEDS: HYDROcodone Bit/Acetam 5/325 TABLET 1 TAB PO ×3 (10:42→21:18)
[2024-07-12] MEDS: cefTRIAXone sodium 1 GM VIAL IVPUSH (11:15)
--- NOTE | 2024-07-12 11:33 | HO.PM.IMPN ---
Subjective Subjective Date of Service: 07/12/24 Interval History: Feels better with less shortness of breath, denies fever, no chills, denies generalized pain, participated with physical therapy, no acute events overnight, not on home oxygen Review of Systems All other system reviewed and are negative. Physical Exam Vital Signs: Vital Signs: Last Vital Signs Temp 98.3 F 07/12/24 11:19 Pulse 67 07/12/24 11:19 Resp 18 07/12/24 11:19 BP 127/60 07/12/24 11:19 Pulse Ox 91 L 07/12/24 11:19 O2 Del Method Room Air 07/12/24 11:19 O2 Flow Rate 5 07/11/24 22:48 FiO2 40 07/11/24 18:07 Oxygen Flow Rate 10 07/11/24 10:48 BMI result Body Mass Index 34.0 Const: Other: General: AOx3, no acute distress Neck no JVD Resp: Bibasilar rhonchi, no acute distress. CVS: S1, S2, RRR GI: +BS, NT, no distention Skin: Warm, dry Neuro: Nonfocal Extremities: Mild edema Psych: Appropriate affect Objective Data Active Medications Acetaminophen (Acetaminophen 325 Mg Tablet) 650 mg PO Q6H PRN PRN Reason: Pain, Mild 1-3,fever,headache Last Admin: 07/12/24 01:26 Dose: 650 mg Documented By: NITHYA Hydrocodone Bitart/Acetaminophen (Hydrocodone Bit/Acetam 5/325 Tablet) 1 tab PO Q6H PRN PRN Reason: Pain, Severe (Pain Scale 7-10) Last Admin: 07/12/24 10:42 Dose: 1 tab Documented By: MARIANNA Albuterol/Ipratropium (Albuterol/Iprat 2.5/0.5mg 3 Ml Ampul.Neb) 3 ml INHALE RQ4H WHILE AWAKE PRN PRN Reason: Shortness of Breath/Wheezing Amphetamine/Dextroamphetamine (Amphetamine Mixed Salts 10 Mg Tablet) 7.5 mg PO DAILY [facility] Last Admin: 07/12/24 08:37 Dose: 7.5 mg Documented By: MARIANNA Apixaban (Apixaban 5 Mg Tablet) 5 mg PO BID [facility] Last Admin: 07/12/24 08:38 Dose: 5 mg Documented By: MARIANNA Aspirin (Aspirin Enteric Coated 81 Mg Tablet.) 81 mg PO DAILY [facility] Last Admin: 07/12/24 08:38 Dose: 81 mg Documented By: MARIANNA Atorvastatin Calcium (Atorvastatin Calcium 80 Mg Tablet) 80 mg PO DAILY [facility] Last Admin: 07/12/24 08:38 Dose: 80 mg Documented By: MARIANNA Calcium Carbonate (Calcium Carbonate 750 Mg Tab.Chew) 750 mg PO Q4H PRN PRN Reason: Heartburn Ceftriaxone Sodium (Ceftriaxone Sodium 1 Gm Vial) 1 gm IVPUSH Q24H [facility] Last Admin: 07/12/24 11:15 Dose: 1 gm Documented By: MARIANNA Cilostazol (Cilostazol 50 Mg Tablet) 50 mg PO BID [facility] Last Admin: 07/12/24 08:38 Dose: 50 mg Documented By: MARIANNA Clonazepam (Clonazepam 0.5 Mg Tablet) 0.5 mg PO BID [facility] Last Admin: 07/12/24 08:37 Dose: 0.5 mg Documented By: MARIANNA Docusate Sodium (Docusate Sodium 100 Mg Capsule) 100 mg PO DAILY [facility] Last Admin: 07/12/24 08:38 Dose: 100 mg Documented By: MARIANNA Dronedarone (Dronedarone Hcl 400 Mg Tablet) 400 mg PO BID [facility] Last Admin: 07/12/24 08:38 Dose: 400 mg Documented By: MARIANNA Furosemide (Furosemide 40 Mg Tablet) 40 mg PO DAILY [facility]; Protocol Last Admin: 07/12/24 08:38 Dose: 40 mg Documented By: MARIANNA Hydralazine HCl (Hydralazine Hcl 25 Mg Tablet) 25 mg PO BID [facility]; Protocol Last Admin: 07/12/24 08:38 Dose: 25 mg Documented By: MARIANNA Azithromycin 500 mg/ Sodium (Chloride) 250 mls @ 125 mls/hr IV Q24H [facility] Magnesium Hydroxide (Milk Of Magnesia 30 Ml Oral.Susp) 30 ml PO DAILY PRN PRN Reason: Constipation Melatonin (Melatonin 3 Mg Tablet) 6 mg PO BEDTIME PRN PRN Reason: Insomnia Melatonin (Melatonin 3 Mg Tablet) 3 mg PO BEDTIME PRN PRN Reason: Sleep Metoprolol Tartrate (Metoprolol Tartrate 12.5 Mg Halftab) 12.5 mg PO BID [facility]; Protocol Last Admin: 07/12/24 08:38 Dose: 12.5 mg Documented By: MARIANNA Polyethylene Glycol (Polyethylene Glycol 3350 17 Gm Powd.Pack) 17 gm PO BEDTIME [facility] Quetiapine Fumarate (Quetiapine Fumarate 25 Mg Tablet) 25 mg PO BID [facility] Last Admin: 07/12/24 08:38 Dose: 25 mg Documented By: MARIANNA Sertraline HCl (Sertraline Hcl 50 Mg Tablet) 50 mg PO DAILY [facility] Last Admin: 07/12/24 08:38 Dose: 50 mg Documented By: MARIANNA Sodium Chloride (0.9 % Sodium Chloride Flush 3 Ml Syringe) 3 ml IVFLUSH QSHIFT [facility] Last Admin: 07/12/24 07:02 Dose: Not Given Documented By: MARIANNA Non-Admin Reason: Previously Administered Tamsulosin HCl (Tamsulosin Hcl 0.4 Mg Capsule) 0.4 mg PO DAILY [facility] Last Admin: 07/12/24 08:38 Dose: 0.4 mg Documented By: MARIANNA Labs 07/12/24 06:21 07/12/24 06:21 Labs: Laboratory Results - last 24 hr 07/11/24 07/11/24 07/11/24 11:31 11:38 11:39 MCV 91.9 MCH 30.0 MCHC 32.7 RDW 15.0 Plt Count 397 D MPV 9.2 L Immature Gran % (Auto) 0.3 Neut % (Auto) 91.1 H Lymph % (Auto) 3.7 L Esmeralda % (Auto) 4.6 Eos % (Auto) 0.1 Baso % (Auto) 0.2 Lymph # (Auto) 0.7 L Esmeralda # (Auto) 0.8 Eos # (Auto) 0.0 Baso # (Auto) 0.0 Abs Immat Gran (auto) 0.05 H Absolute Neuts (auto) 16.5 H Absolute Nucleated RBC 0.000 Nucleated RBC % (auto) 0.0 Smear Tech's Comments VERIFIED Hold Blue Top SEE NOTE VBG pH 7.40 VBG pCO2 41 VBG pO2 28 VBG HCO3 26 VBG O2 Saturation 39.0 VBG Base Excess 1.4 Anion Gap 12 Estim Creat Clear Calc 68.6 Estimated GFR > 60 Random Glucose 109 Lactic Acid 2.3 H* Lactic Acid F/U @ 2Hr Lactic Acid F/U @ 4Hr Calcium 9.3 Total Bilirubin 0.5 Direct Bilirubin 0.2 AST 22 ALT 25 Alkaline Phosphatase 122 H B-Natriuretic Peptide 204 H Total Protein 7.2 Albumin 3.8 Lipase 16 Influenza Type A (PCR) NEGATIVE Influenza Type B (PCR) NEGATIVE RSV RNA Qual (PCR) NEGATIVE SARS-CoV-2 RNA (RT-PCR) NEGATIVE 07/11/24 07/11/24 07/12/24 13:59 16:10 06:21 MCV 91.3 MCH 30.8 MCHC 33.7 RDW 15.3 Plt Count 285 D MPV 9.3 L Immature Gran % (Auto) Neut % (Auto) Lymph % (Auto) Esmeralda % (Auto) Eos % (Auto) Baso % (Auto) Lymph # (Auto) Esmeralda # (Auto) Eos # (Auto) Baso # (Auto) Abs Immat Gran (auto) Absolute Neuts (auto) Absolute Nucleated RBC 0.000 Nucleated RBC % (auto) 0.0 Smear Tech's Comments Hold Blue Top VBG pH VBG pCO2 VBG pO2 VBG HCO3 VBG O2 Saturation VBG Base Excess Anion Gap 9 L Estim Creat Clear Calc 76.7 Estimated GFR > 60 Random Glucose 92 Lactic Acid Lactic Acid F/U @ 2Hr 3.4 H* Lactic Acid F/U @ 4Hr 2.6 H* Calcium 8.9 Total Bilirubin Direct Bilirubin AST ALT Alkaline Phosphatase B-Natriuretic Peptide Total Protein Albumin Lipase Influenza Type A (PCR) Influenza Type B (PCR) RSV RNA Qual (PCR) SARS-CoV-2 RNA (RT-PCR) Assessment and Plan (1) Acute hypoxic respiratory failure: Status: Acute (2) Multifocal pneumonia: Status: Acute Plan 79-year-old male with a PMH significant for?CAD, paroxysmal AFib/flutter Eliquis, CKD 3, HLD, HTN, BPH, and mood disorder who presents to the ED with SOB, difficulty breathing, and generalized weakness since this morning. Pt will be admitted to the hospital for treatment and further evaluation acute hypoxic respiratory failure in the setting of multifocal pneumonia with sepsis. Acute hypoxic respiratory failure in the setting of multifocal pneumonia with sepsis Feeling better, no worsening shortness of breath or hypoxia overnight CXR showing multifocal pneumonia, presented with weakness, myalgia, SOB, cough Tachypnea resolved persistent leukocytosis on iv ceftriaxone and azithromycin, started 07/11/2024 Duonebs prn, weaned off high-flow oxygen, not on home oxygen Follow blood cultures PT recommend home PT, patient refusing short-term rehab, PT recommend patient to have assist at home Acute lactic acidosis likely due to nebulizer treatment and sepsis Recent dislocation of left glenohumeral joint with impaction fracture of the humerus, scapula, and coracoid process S/p repair on 06/21 Continue sling, home analgesics Paroxysmal AFib Continue Multaq, metoprolol and Eliquis CAD Continue statin and aspirin HTN Continue hydralazine BPH Continue tamsulosin Mood disorder Continue home mood stabilizers Full Code DVT Prophylaxis: On Eliquis Pt will require continued inpatient hospitalization for treatment of?acute hypoxic respiratory failure in the setting of multifocal pneumonia with sepsis, requiring IV antibiotics. Quality Stroke Does the patient have a stroke diagnosis?: No VTE Prior VTE?: No VTE Risk Level:: Medical - moderate - high VTE Device Contraindication: Treatment Not Indicated VTE Drug Contraindication: N/A - Med Ordered
[2024-07-12] MEDS: Azithromycin 500 MG in 0.9 % Sodium Chloride 250 ML 125 MG IV (11:53)
[2024-07-12] MEDS: Milk of Magnesia 30 ML ORAL.SUSP PO (14:46)
--- NOTE | 2024-07-12 15:09 | PC.NURSE ---
pt c/o pain, informed. pt was informed PRN morphine was d/c'ed
[2024-07-13] VITALS: O2SAT 86
[2024-07-13] MEDS: 0.9 % Sodium Chloride Flush 3 ML SYRINGE IVFLUSH ×2 (02:23→09:45)
[2024-07-13 04:00] VITALS: BP 143/65; PULSE 60; RESP 18; TEMP 36.5; O2SAT 95
[2024-07-13 05:01] VITALS: O2SAT 93
[2024-07-13] MEDS: HYDROcodone Bit/Acetam 5/325 TABLET 1 TAB PO ×2 (05:03→09:57)
[2024-07-13 06:20] LABS: Hematocrit 34.1 % (42.0-52.0); Hemoglobin 11.5 g/dl (14.0-18.0); Mean Corpuscular HGB Conc 33.7 g/dl (31.0-36.0); Mean Corpuscular Hemoglobin 30.7 pg (27.0-33.0); Mean Corpuscular Volume 91.2 fL (80.0-98.0); Mean Platelet Volume 9.1 fL (9.4-12.4); Platelet Count 264 X10*3/uL (160-400); Red Blood Count 3.74 X10*6/uL (4.60-5.80); Red Cell Distribution Width 15.6 % (11.0-16.0); White Blood Count 9.9 X10*3/uL (4.8-10.8)
[2024-07-13 08:00] VITALS: BP 153/67; PULSE 60; RESP 20; TEMP 36.7; O2SAT 94
[2024-07-13] MEDS: QUEtiapine Fumarate 25 MG TABLET PO (09:41)
[2024-07-13] MEDS: Tamsulosin HCL 0.4 MG CAPSULE PO (09:41)
[2024-07-13] MEDS: Docusate Sodium 100 MG CAPSULE PO (09:41)
[2024-07-13] MEDS: clonazePAM 0.5 MG TABLET PO (09:42)
[2024-07-13] MEDS: Amphetamine Mixed Salts 10 MG TABLET 7.5 MG PO (09:42)
[2024-07-13] MEDS: Aspirin Enteric Coated 81 MG TABLET.DR PO (09:42)
[2024-07-13] MEDS: Atorvastatin Calcium 80 MG TABLET PO (09:42)
[2024-07-13] MEDS: Dronedarone HCl 400 MG TABLET PO (09:42)
[2024-07-13] MEDS: Furosemide 40 MG TABLET PO (09:42)
[2024-07-13] MEDS: Apixaban 5 MG TABLET PO (09:43)
[2024-07-13] MEDS: Metoprolol Tartrate 12.5 MG HALFTAB PO (09:43)
[2024-07-13] MEDS: hydrALAZINE HCl 25 MG TABLET PO (09:43)
[2024-07-13] MEDS: cilostazoL 50 MG TABLET PO (09:43)
[2024-07-13] MEDS: Sertraline HCL 50 MG TABLET PO (09:43)
[2024-07-13] MEDS: cefTRIAXone sodium 1 GM VIAL IVPUSH (11:34)
[2024-07-13 11:38] VITALS: BP 144/67; PULSE 62; RESP 18; TEMP 36.8; O2SAT 91
--- NOTE | 2024-07-13 11:50 | P.DS_ITS ---
DS: Providers Provider Date of Service: 07/13/24 Date of admission: 07/11/24 13:11 Date of discharge: 07/13/24 Primary care physician: Sesar Pereyra MD DS: Diagnosis Discharge Diagnosis (1) Acute hypoxic respiratory failure: Status: Acute (2) Multifocal pneumonia: Status: Acute DS: Summary Hospital Course Hospital Course: History of presenting illness: Date of Service: 07/11/24 Attending physician on admission: Rianna Brown Chief Complaint: SOB Pt is a 79-year-old male with a PMH significant for?CAD, paroxysmal AFib/flutter Eliquis, CKD 3, HLD, HTN, BPH, and mood disorder who presents to the ED with SOB, difficulty breathing, and generalized weakness since this morning. Pt reports was in his normal state of health yesterday, but when he awoke this morning everything hurt and he felt generally unwell. Also been experiencing nonproductive cough, and chills. No chest pain/ pressure, palpitations. Denies nausea, vomiting, abdominal pain. Of note, pt was recently admitted to the hospital from 06/19-06/25 for significant left glenohumeral joint with impaction fracture requiring surgical repair on 06/21. PT recommended STR but pt declined and went home with services. Pt reports has been walking outside daily for 5- 10 minutes. In the ED pt was Tachypneic up to 26 low-grade fever of 99.5 and requiring 10L O2 to sat at 92%. Labs were significant for 18.1 and lactic acid 2.3. Stable H&H. No significant electrolyte abnormalities. Creatinine mildly elevated at 1.17 ( up from 0.95 on 06/22), troponin WNL at 12.1. BNP elevated at 204, around baseline. Tested negative for flu, COVID, RSV. CXR showed Patchy bibasilar pneumonia and cardiomegaly. EKG demonstrated Normal sinus rhythm without evidence of significant ST elevations depressions. Pt was treated with DuoNebs, ceftriaxone, and azithromycin. Pt will be admitted to the hospital for treatment and further evaluation acute hypoxic respiratory failure in the setting of multifocal pneumonia with sepsis. Hospital course: 79-year-old male with a PMH significant for?CAD, paroxysmal AFib/flutter Eliquis, CKD 3, HLD, HTN, BPH, and mood disorder who presents to the ED with SOB, difficulty breathing, and generalized weakness since this morning. Pt will be admitted to the hospital for treatment and further evaluation acute hypoxic respiratory failure in the setting of multifocal pneumonia with sepsis. Acute hypoxic respiratory failure in the setting of multifocal pneumonia with sepsis, treated with IV ceftriaxone and azithromycin, cough medication and as needed updraft, patient responded well to above treatment WBC normalized, tachypnea resolved blood cultures preliminary x2 negative patient is adamant to be discharged home today, hypoxia resolved therefore he is being discharged home on azithromycin 500 mg for 3 more days and Ceftin 500 mg twice daily for 5 more days recommend to take cough medication as needed, due to underlying history of COPD with occasional expiratory wheeze being discharged home on albuterol MDI 2 puffs q.4 hours as needed for wheeze/chest tightness, being discharged home with VNA and PT services, patient seen by Physical therapy they recommend home PT, patient declined short-term rehab, PT recommend patient to have assisted home patient lives with his girlfriend. Acute lactic acidosis likely due to sepsis/updraft treatment resolved. Recent dislocation of left glenohumeral joint with impaction fracture of the humerus, scapula, and coracoid process, S/p repair on 06/21, recommend to Continue sling, home analgesics. Paroxysmal AFib Continue Multaq, metoprolol and Eliquis. CAD no acute symptoms noted during hospitalization on statin and aspirin. HTN Continue hydralazine. BPH Continue tamsulosin. Mood disorder Continue home mood stabilizers. Time Attestation Discharge Coordination Time (in mins): 40 Quality: Safe Use of Opioids Does Pt have an Active Cancer Diagnosis on the Problem List?: No Quality: Stroke Does the patient have a stroke diagnosis?: No Physical Exam Vital Signs: Vital Signs: Last Vital Signs Temp 98.3 F 07/13/24 11:38 Pulse 62 07/13/24 11:38 Resp 18 07/13/24 11:38 BP 144/67 H 07/13/24 11:38 Pulse Ox 91 L 07/13/24 11:38 O2 Del Method Room Air 07/13/24 11:38 O2 Flow Rate 2 07/13/24 08:00 FiO2 40 07/11/24 18:07 Oxygen Flow Rate 10 07/11/24 10:48 BMI result Body Mass Index 34.0 Const: Other: General: AOx3, no acute distress Neck no JVD Resp: Bibasilar rhonchi, able to talk in full sentences CVS: S1, S2, RRR GI: +BS, NT, no distention Skin: Warm, dry Neuro: Non focal Extremities: Mild edema Left arm in sling Psych: Appropriate affect DS: Data Data Completed and Pending Completed studies during hospitalization [Text1]: Procedures Introduction of Anesthetic Agent into Peripheral Nerves and Plexi, Percutaneous Approach (06/19/24) Reattachment of Left Shoulder Tendon, Percutaneous Endoscopic Approach (06/19/24) Reposition Left Shoulder Joint, External Approach (06/19/24) Labs on day of discharge: Laboratory Results - last 24 hr 07/13/24 06:10 WBC 9.9 RBC 3.74 L Hgb 11.5 L Hct 34.1 L MCV 91.2 MCH 30.7 MCHC 33.7 RDW 15.6 Plt Count 264 MPV 9.1 L Absolute Nucleated RBC 0.000 Nucleated RBC % (auto) 0.0 Lactic Acid 1.0 Preliminary micro results at discharge 07/11/24 11:54 Blood Culture - Preliminary Blood - Venous No growth after 24 hours. 07/11/24 11:39 Blood Culture - Preliminary Blood - Venous No growth after 24 hours. Discharge Plan Discharge Anticipated Discharge Date/Time: 07/13/24 11:24 Patient Disposition: Home Health Service Discharge Diagnosis: Acute hypoxic respiratory failure Multifocal pneumonia Acute lactic acidosis Referrals: [facility] [Outside] - 1 Week Sesar Pereyra MD [Primary Care Provider] - 1 Week Discharge Medications: New dextromethorphan-guaifenesin 10-100 mg/5 mL Syrup 10 ml PO Q6H PRN (Reason: Cough) Qty: 237 0RF albuterol sulfate [Ventolin HFA] 90 mcg/actuation Hfa Aerosol Inhaler 2 puff inhalation RQ4H PRN (Reason: sob) Qty: 1 0RF azithromycin 500 mg tablet 500 mg PO DAILY Qty: 3 0RF cefuroxime axetil 500 mg tablet 500 mg PO BID Qty: 10 0RF Continued cilostazol 50 mg tablet 50 mg PO BID furosemide 40 mg tablet 40 mg PO DAILY Qty: 90 3RF gabapentin 100 mg capsule 100 - 300 mg PO BEDTIME 30 Days Qty: 90 6RF oxycodone 5 mg tablet 5 mg PO Q8H PRN (Reason: pain) Qty: 15 0RF Rx Instructions: Partial Fill upon patient request. atorvastatin 80 mg tablet 80 mg PO DAILY Eliquis 5 mg tablet 5 mg PO BID sertraline 50 mg tablet 50 mg PO DAILY polyethylene glycol 3350 17 gram Powder In Packet 17 g PO BEDTIME 30 Days Qty: 30 0RF dextroamphetamine-amphetamine 7.5 mg tablet 1 tab PO DAILY Multaq 400 mg Tablet 400 mg PO BID Qty: 180 0RF aspirin 81 mg tablet,delayed release (DR/EC) 81 mg PO DAILY metoprolol tartrate 25 mg tablet 12.5 mg PO BID docusate sodium 100 mg capsule 100 mg PO DAILY quetiapine 25 mg tablet 25 mg PO BID clonazepam 0.5 mg tablet 0.5 mg PO BID hydralazine 25 mg tablet 25 mg PO BID 30 Days Qty: 60 4RF Rx Instructions: New med for BP tamsulosin 0.4 mg capsule 0.4 mg PO DAILY melatonin 3 mg capsule 3 mg PO BEDTIME PRN (Reason: Sleep) Discharge Orders: Discharge Order (Routine); Ordered 07/13/24 Ordered By: Rianna Brown Diet: Advance to usual diet Activity on Discharge: As tolerated Stand Alone Forms: Patient Portal Discharge page Print Language: Arabic Care Plan Goals: Acute hypoxia resolved Multifocal pneumonia take Ceftin 1 tablet twice daily for 5 more days and azithromycin 1 tablet daily for 3 more days Use cough medication as needed Use albuterol 2 puffs as needed for chest tightness/wheeze/VNA to provide tea mildred on how to use inhaler Health Concerns: Left shoulder fracture status post close reduction continue sling with abduction pillow in place at all times follow all recommendation as per ortho Take pain medication as before Plan of Treatment: Follow-up with primary care physician Outpatient follow-up with Orthopedic surgery as previously planned Continue physical therapy Assessment: As above
[2024-07-13] MEDS: Azithromycin 500 MG in 0.9 % Sodium Chloride 250 ML 125 MG IV (12:04)
[2024-07-13] MEDS: Albuterol Sulfate 90 MCG 8 GM INHALER 2 PUFF INHALE (12:15)
--- NOTE | 2024-07-13 12:15 | PC.RT ---
inhaler administered per MD request. Pt taught spacer, self administered well.
--- NOTE | 2024-07-13 12:30 | MHC.CM.PN ---
PT TO DC HOME TODAY WITH RESUMPTION OF [facility] NOTIFIED OF DC VIA [facility] AND DCS PROVIDED FAMILY TO TRANSPORT
== END 2024-07-13 15:04 | disposition home health service (06) | DRG 871 ==
LOC: HO.ED 12:21 → HO.EDOVER 13:22 → HO.IMC 19:04
PROVIDERS: Admitting Provider Student in an Organized Health Care Education/Training Program; Emergency Provider Emergency Medicine; PCP Internal Medicine; Visit Provider Hospitalist
DX: A41.9 Sepsis, unspecified organism (principal); J96.01 Acute respiratory failure with hypoxia; E87.21 Acute metabolic acidosis; I25.10 Atherosclerotic heart disease of native coronary artery without angina pectoris; I48.0 Paroxysmal atrial fibrillation; F39 Unspecified mood [affective] disorder; I12.9 Hypertensive chronic kidney disease with stage 1 through stage 4 chronic kidney disease, or unspecified chronic kidney disease; I48.91 Unspecified atrial fibrillation; N18.30 Chronic kidney disease, stage 3 unspecified; N40.0 Benign prostatic hyperplasia without lower urinary tract symptoms; E78.5 Hyperlipidemia, unspecified; Z20.822 Contact with and (suspected) exposure to COVID-19; Z87.891 Personal history of nicotine dependence; Z79.01 Long term (current) use of anticoagulants; Z79.82 Long term (current) use of aspirin; Z79.899 Other long term (current) drug therapy
CPT/HCPCS: 0241U; 36415; 71045; 80048; 80076; 82803; 83605; 83690; 83880; 84484; 85025; 85027; 87040; 93005; 94640; 97162; 97530; 99285; J0131; J0456; J0696; J2270

== ENCOUNTER → 2024-07-11 11:01 | Outpatient (BNV) | payer MEDICARE, MEDICAID, SELFPAY | PROVIDERS: Emergency Provider Emergency Medicine; PCP Internal Medicine; Visit Provider Radiology Diagnostic Radiology | DX: I51.7 Cardiomegaly (principal) | CPT/HCPCS: 71045 ==

== ENCOUNTER → 2024-07-11 11:01 | Outpatient (BNV) | payer MEDICARE, MEDICAID, SELFPAY | PROVIDERS: Admitting Provider Student in an Organized Health Care Education/Training Program; Emergency Provider Emergency Medicine; PCP Internal Medicine; Visit Provider Internal Medicine | DX: I21.09 ST elevation (STEMI) myocardial infarction involving other coronary artery of anterior wall (principal) | CPT/HCPCS: 93010 ==

== ENCOUNTER → 2024-07-11 13:11 | Outpatient (BNV) | payer MEDICARE, MEDICAID, SELFPAY | PROVIDERS: Admitting Provider Student in an Organized Health Care Education/Training Program; Emergency Provider Emergency Medicine; PCP Internal Medicine; Visit Provider Student in an Organized Health Care Education/Training Program | DX: J96.01 Acute respiratory failure with hypoxia (principal); J18.9 Pneumonia, unspecified organism | CPT/HCPCS: 99223; 99233; 99239 ==

== ENCOUNTER 2024-07-15 14:31 | Outpatient (AMB) | payer MEDICARE, MEDICAID, SELFPAY ==
--- NOTE | 2024-07-15 15:08 | A.OFFVIS_ITS ---
Intake Visit Reasons: OV- RT clavicle fx Intake Note: Alex is a 79 year old male who presents today for a follow up of right clavicle fracture s/p fall. X-rays updated. Patient reports he is doing well, states no pain or discomfort. Allergies No Known Allergies [No Known Allergies*] Allergy (Verified 07/15/24 15:26) Medication List - Last Reconciled 07/15/24 by Augusta Klein PA-C albuterol sulfate 90 mcg/actuation (Ventolin HFA) 2 puffs inhalation RQ4H PRN apixaban (Eliquis) 5 mg PO BID aspirin 81 mg PO DAILY atorvastatin 80 mg PO DAILY azithromycin 500 mg PO DAILY cefuroxime axetil 500 mg PO BID cilostazol 50 mg PO BID clonazepam 0.5 mg PO BID dextroamphetamine-amphetamine 7.5 mg 1 tab PO DAILY dextromethorphan-guaifenesin 10-100 mg/5 mL 10 mL PO Q6H PRN docusate sodium 100 mg PO DAILY dronedarone (Multaq) 400 mg PO BID furosemide 40 mg PO DAILY gabapentin 100 - 300 mg (1 - 3 x 100 mg) PO BEDTIME 30 days hydralazine 25 mg PO BID 30 days melatonin 3 mg PO BEDTIME PRN metoprolol tartrate 12.5 mg PO BID oxycodone 5 mg PO Q8H PRN polyethylene glycol 3350 17 grams PO BEDTIME 30 days quetiapine 25 mg PO BID sertraline 50 mg PO DAILY tamsulosin 0.4 mg PO DAILY HPI HPI OV- RT clavicle fx: Details: 79-year-old gentleman returns to the office today follow-up right clavicle fracture. He denies pain. [facility] Medical History Paroxysmal atrial flutter Preoperative cardiovascular examination Coronary artery disease Hypersomnia Snoring Neuropathy Atherosclerotic cardiovascular disease History of alcohol abuse History of COVID-19 On beta jose at home COPD (chronic obstructive pulmonary disease) On anticoagulant therapy History of atrial fibrillation PVD (peripheral vascular disease) Renal cell carcinoma Hypertension Depression Anxiety Diverticulitis Surgical History History of intestinal surgery History of kidney surgery H/O cardiac catheterization History of colectomy S/P femoral-femoral bypass surgery Social History Household Members: Significant Other Housing: House Are you a primary home care and home health aides teacher to a significant other at home: No Do you presently have visiting nurse or other home services: No Alcohol intake: never Patient Tobacco Use Status: Former Tobacco user Tobacco use type: Cigarette Second Hand Smoke Exposure: No Substance Use Type: Marijuana Advance Directives Date on File: 06/09/21 service: Yes Current occupational status: retired Current occupation: right hand dominant Review of Systems Const All systems reviewed & are unremarkable except as noted in HPI and below Physical Exam Const General: cooperative, healthy appearing, comfortable, no acute distress, well developed and alert Orientation/consciousness: patient oriented x3 HEENT Head: Yes normal to inspection, Yes normocephalic and Yes atraumatic Eyes General: appearance normal, both eyes and all related structures Resp Effort & Inspection: normal respiratory effort and able to speak in complete sen tences Cardio Rate: regular rate Peripheral pulses: Peripheral pulses 2+ throughout GI Palpation (GI): Soft to palpation Skin Lesions: no lesions Rashes: no rashes Neuro General: patient oriented x3 Extrem Other: Right clavicle: No tenderness to palpation over the fracture site. Anterior deltoid sensation is intact. Full ROM of elbow with no pain. No pain along the forearm. Negative squeeze test. No pain along the distal radius. NVI. Results Reviewed Results Reviewed: Xrays were obtained in the office today and personally reviewed by me of the right clavicle show minimally displaced fracture at the distal clavcicle with interval healing. Assessment & Plan Assessment & Plan (1) Glenoid fracture of shoulder: Code(s): S42.143A - Displaced fracture of glenoid cavity of scapula, unspecified shoulder, initial encounter for closed fracture; S42.153A - Displaced fracture of neck of scapula, unspecified shoulder, initial encounter for closed fracture Category: Medical (2) Closed left scapular fracture: Code(s): S42.102A - Fracture of unspecified part of scapula, left shoulder, initial encounter for closed fracture Category: Medical (3) Fracture, humerus: Code(s): S42.309A - Unspecified fracture of shaft of humerus, unspecified arm, initial encounter for closed fracture Category: Medical (4) Dislocation of left glenohumeral joint: Code(s): S43.005A - Unspecified dislocation of left shoulder joint, initial encounter Category: Medical Plan Patient will increase activities as tolerated on his right side for his clavicle fracture as he has no pain and full function. I did place a new order for physical therapy on his left shoulder and readjusted his sling and showed him how to come in and out of the sling appropriately. All questions were answered and he will see us back on August 01 for his routine postop appointment for his left shoulder Orders: Orders PT Evaluation and Treatment Today S42.102A - Fracture of unspecified part of scapula, left shoulder, initial encounter for closed fracture, S42.143A - Displaced fracture of glenoid cavity of scapula, unspecified shoulder, initial encounter for closed fracture, S42.153A - Displaced fracture of neck of scapula, unspecified shoulder, initial encounter for closed fracture, S42.309A - Unspecified fracture of shaft of humerus, unspecified arm, initial encounter for closed fracture, S43.005A - Unspecified dislocation of left shoulder joint, initial encounter Coding Level of Care Code Global (11841) Diagnoses Glenoid fracture of shoulder S42.143A; S42.153A Closed left scapular fracture S42.102A Fracture, humerus S42.309A Dislocation of left glenohumeral joint S43.005A
--- OUTSIDE RECORDS SUMMARY | 2024-07-15 17:00 | XMS_ITS | Encounter Summary ---
Author Organization [facility] Address [address] [place] [address] Care Team Providers Care Tech Brazer Tester Name Role Phone Yolande Nicholas DO Primary Care Pro vider Unavailable Anuj Priest DO Primary Care Provider [facility], Pcp Primary Care Provider Unavailabl e Reason for Visit * Reason Onset Date Comments anxiety 09/17/2019 Encounter Details Date Type Department Care Team Description 09/17/2019 Pt. Non Urgent Medic al Question Adult Medicine [address] [address] Yolande Nicholas DO Social History Tobacco Use [...] 10 righr now after getting out of [facility] for the covid 19 my girl friend it seems like i am a different person. You have now idea what i went through there in the hospit al and coming home in this of anxiety. I need help like i said the visiting nurse sugested i take ativan for my anxiety. My therpist Ava from [facility] said i should be taking [...] on filedocumented in this encounter Care Teams Tech Brazer Tester Relationship Specialty Start Date End Date Yolande Nicholas DO PCP - General Internal Medicine 12/03/18 10/08/20 Anuj Priest DO PCP - General Internal Medicine 10/09/[address] [place] [address], Pcp PCP - General Internal Medicine 06/17/21 documented as of this encounter
--- OUTSIDE RECORDS SUMMARY | 2024-07-15 17:00 | XMS_ITS | Encounter Summary ---
Author Organization [facility] Address [address] [place] [address] Care Team Providers Care Scow Derrick Operator Name Role Phone Yolande Nicholas DO Primary Care Pro vider Unavailable Anuj Priest DO Primary Care Provider [facility], Pcp Primary Care Provider Unavailabl e Reason for Visit * Reason Onset Date Comments VNA Call 09/16/2019 Encounter Details Date Type Department Care Team Description 09/16/2019 Telephone Internal Medicine - [address], [address] [place], [place] [id number] Alana Stinson MD [address] [place] [phone] VNA Call Social History Tobacco Use [...] 09/16/2019 10:55 AM EDT Message routed to [facility]. * Telephone Encounter - Ava Hull - 09/16/2019 10:19 AM EDT VNA CALL Which VNA office is calling? [facility] Full name of caller: Kalie The caller [...] on filedocumented in this encounter Care Teams Scow Derrick Operator Relationship Specialty Start Date End Date Yolande Nicholas DO PCP - General Internal Medicine 12/03/18 10/08/20 Anuj Priest DO PCP - General Internal Medicine 10/09/20 2 [facility], Pcp PCP - General Internal Medicine 06/17/21 documented as of this encounter
--- OUTSIDE RECORDS SUMMARY | 2024-07-15 17:01 | XMS_ITS | Encounter Summary ---
Author Organization [facility] Address [address] [place] [address] Care Team Providers Care Body Rolling Machine Tender Name Role Phone Yolande Nicholas DO Primary Care Pro vider Unavailable Anuj Priest DO Primary Care Provider [facility], Pcp Primary Care Provider Unavailabl e Reason for Visit * Reason Comments E-prescribe Rx Request Encounter Details Date Type Department Care Team Description 01/24/2020 Refill Adult Medicine [address] [address] Alana Stinson MD [address] [place] [phone] E-prescribe Rx Request Social History Tobacco [...] - MEDICARE / Plan: MEDICARE FFS $5 [place] [id number] / Product Type: MEDICARE [id number] documented in this encounter Plan of Treatment Not on file documented as of this encounter Visit Diagnoses Not on filedocumented in this encounter Care Teams Body Rolling Machine Tender Relationship Specialty Start Date End Date Yolande Nicholas DO PCP - General Internal Medicine 12/03/18 10/08/20 Anuj Priest DO PCP - General Internal Medicine 10/09/20 2 [facility], Pcp PCP - General Internal Medicine 06/17/21 documented as of this encounter
--- OUTSIDE RECORDS SUMMARY | 2024-07-15 17:01 | XMS_ITS | Encounter Summary ---
Author Organization [facility] Address [address] [place] [address] Care Team Providers Care Assembler Motor Vehicle Name Role Phone Yolande Nicholas DO Primary Care Pro vider Unavailable Anuj Priest DO Primary Care Provider [facility], Pcp Primary Care Provider Unavailabl e Reason for Visit * Reason Onset Date Comments Faxed Order 01/14/2020 Encounter Details Date Type Department Care Team Description 01/14/2020 Telephone Adult [address] [address] Yolande Nicholas DO Faxed Order Social History [...] Dr. Yolande Gomez's signature - tracking # [id number], [id number] documented in this encounter Plan of Treatment Not on file documented as of this encounter Visit Diagnoses Not on filedocumented in this encounter Care Teams Assembler Motor Vehicle Relationship Specialty Start Date End Date Yolande Nicholas DO PCP - General Internal Medicine 12/03/18 10/08/20 Anuj Priest DO PCP - General Internal Medicine 10/09/20 2 [facility], Pcp PCP - General Internal Medicine 06/17/21 documented as of this encounter
--- OUTSIDE RECORDS SUMMARY | 2024-07-15 17:01 | XMS_ITS | Encounter Summary ---
Author Organization [facility] Address [address] [place] [address] Care Team Providers Care Rn Vascular Name Role Phone Ghassan Burciaga MD Primary Care Provider Unavail able Pierre Arevalo MD Primary Care Provider Judy vailable Gerson Dawson MD Primary Care Provider Unavail able [facility], Pcp Primary Care Provider Unavailabl e Coleman Mccarthy MD Primary Care Provider Unavaila Ayo Demarco MD Primary Care Provider [phone] Annalee Jones MD Primary Care Provider Un available Pascual Nicholasabela DO Primary Care Pro vider Unavailable Anuj Priest DO Primary Care Provider Judy vailable [facility], Pcp Primary Care Provider Unavailabl e Encounter Details Date Type Department Care Team Description 07/05/2011 Coastal Tug Mate Report Medical Records [address] [place] [address] Abstract, Provider Social History Tobacco Use Types [...] filedocumented in this encounter Care Teams Rn Vascular Relationship Specialty Start Date End Date Ghassan Burciaga MD PCP - General 07/24/00 05/06/13 Pierre Arevalo MD PCP - General Internal Medicine 05/07/13 4 Gerson Dawson MD PCP - General Internal Medicine 01/30/14 03/20/14 [facility], Pcp PCP - General Internal Medicine 03/21/14 05/06/14 Coleman Mccarthy MD PCP - General Internal Medicine 05/07/14 07/18/16 Ayo Carpio MD [address] [place], [place] [id number] PCP - General Internal Medicine 07/19/16 01/05/17 Annalee Jones MD [address] [place], [place] [id number] PCP - General Internal Medicine 01/06/17 12/02/18 Yolande Nicholas DO [address] [place] [address] PCP - General Internal Medicine 12/03/18 10/08/20 Anuj Priest DO [address] [place] [address] PCP - General Internal Medicine 10/09/20 06/16/21 [facility], Pcp PCP - General Internal Medicine 06/17/21 documented as of this encounter
--- OUTSIDE RECORDS SUMMARY | 2024-07-15 17:01 | XMS_ITS | Encounter Summary ---
Author Organization [facility] Address [address] [place] [address] Care Team Providers Care Normalizer Name Role Phone Yolande Nicholas DO Primary Care Pro vider Unavailable Anuj Priest DO Primary Care Provider Judy Gardner, Pcp Primary Care Provider Unavailabl e Encounter Details Date Type Department Care Team Description 10/08/2019 Home Health Certification Medical Records [address] [place] [address] Home, [facility] [place] [address] Social History Tobacco Use Types Packs/Day Years [...] on filedocumented in this encounter Care Teams Normalizer Relationship Specialty Start Date End Date Yolande Nicholas DO PCP - General Internal Medicine 12/03/18 10/08/20 Anuj Priest DO PCP - General Internal Medicine 10/09/20 Molly Gardner, Pcp PCP - General Internal Medicine 06/17/21 documented as of this encounter
--- OUTSIDE RECORDS SUMMARY | 2024-07-15 17:01 | XMS_ITS | Encounter Summary ---
Author Organization [facility] Address [address] [place] [address] Care Team Providers Care Insurance Counsel Name Role Phone Yolande Nicholas DO Primary Care Pro vider Unavailable Anuj Priest DO Primary Care Provider Judy Gardner, Pcp Primary Care Provider Unavailabl e Encounter Details Date Type Department Care Team Description 11/28/2019 Catheter Builder Report Medical Records [address] [place] [address] Cedrick Siddiqui Social History Tobacco Use Types [...] filedocumented in this encounter Care Teams Insurance Counsel Relationship Specialty Start Date End Date Yolande Nicholas DO PCP - General Internal Medicine 12/03/18 10/08/20 Anuj Priest DO PCP - General Internal Medicine 10/09/20 2 J[facility], Pcp PCP - General Internal Medicine 06/17/21 documented as of this encounter
--- OUTSIDE RECORDS SUMMARY | 2024-07-15 17:01 | XMS_ITS | Encounter Summary ---
Author Organization [facility] Address [address] [place] [address] Care Team Providers Care Buffing And Polishing Wheel Repairer Name Role Phone Yolande Nicholas DO Primary Care Pro vider Unavailable Anuj Priest DO Primary Care Provider [facility], Pcp Primary Care Provider Unavailabl e Reason for Visit * Reason Onset Date Comments VNA Call 12/28/2019 Encounter Details Date Type Department Care Team Description 12/28/2019 Telephone Adult Urgent Care - [address] [address] Yolande Nicholas DO VNA Call Social History [...] VNA CALL Which VNA office is calling? [place] [facility] Full name of caller: Bev The [...] on filedocumented in this encounter Care Teams Buffing And Polishing Wheel Repairer Relationship Specialty Start Date End Date Yolande Nicholas DO PCP - General Internal Medicine 12/03/18 10/08/20 Anuj Priest DO PCP - General Internal Medicine 10/09/[address] [place] [address], Pcp PCP - General Internal Medicine 06/17/21 documented as of this encounter
--- OUTSIDE RECORDS SUMMARY | 2024-07-15 17:01 | XMS_ITS | Encounter Summary ---
Author Organization [facility] Address [address] [place] [address] Care Team Providers Care Commercial Correspondent Name Role Phone Yolande Nicholas DO Primary Care Pro vider Unavailable Anuj Priest DO Primary Care Provider [facility], Pcp Primary Care Provider Unavailmulticare health e Encounter Details Date Type Department Care Team Description 09/24/2019 Pt. Non Urgent Medic al Question Adult Medicine [address] [address] Yolande Nicholas DO Social History Tobacco Use [...] sore. I went to the ER in [place] to have my leg looked at and [...] been this way since i came from [facility] 2wks or more. Need help documented in this encounter Plan of Treatment Not on file documented as of this encounter Visit Diagnoses Not on filedocumented in this encounter Care Teams Commercial Correspondent Relationship Specialty Start Date End Date Yolande Nicholas DO PCP - General Internal Medicine 12/03/18 10/08/20 Anuj Priest DO PCP - General Internal Medicine 10/09/[address] [place] [address], Pcp PCP - General Internal Medicine 06/17/21 documented as of this encounter
--- OUTSIDE RECORDS SUMMARY | 2024-07-15 17:01 | XMS_ITS | Encounter Summary ---
Author Organization [facility] Address [address] [place] [address] Care Team Providers Care Channel Account Manager Name Role Phone Ghassan Burciaga MD Primary Care Provider Unavail able Pierre Arevalo MD Primary Care Provider Judy vailable Gerson Dawson MD Primary Care Provider Unavail able [facility], Pcp Primary Care Provider Unavailabl e Coleman Mccarthy MD Primary Care Provider Unavaila Ayo Demarco MD Primary Care Provider [phone] Annalee Jones MD Primary Care Provider Un available Pascual Nicholasabela DO Primary Care Pro vider Unavailable Anuj Priest DO Primary Care Provider Judy vailable [facility], Pcp Primary Care Provider Unavailabl e Encounter Details Date Type Department Care Team Description 10/28/2011 Pantry Steward/Stewardess Report Medical Records [address] [place] [address] Nhan Herbert MD Social History Tobacco Use [...] on filedocumented in this encounter Care Teams Channel Account Manager Relationship Specialty Start Date End Date Ghassan Burciaga MD PCP - General 07/24/00 05/06/13 Pierre Arevalo MD PCP - General Internal Medicine 05/07/13 4 Gerson Dawson MD PCP - General Internal Medicine 01/30/14 03/20/14 [facility], Pcp PCP - General Internal Medicine 03/21/14 05/06/14 Coleman Mccarthy MD PCP - General Internal Medicine 05/07/14 07/18/16 Ayo Carpio MD [address] [place], [place] [id number] PCP - General Internal Medicine 07/19/16 01/05/17 Annalee Jones MD [address] [place], [place] [id number] PCP - General Internal Medicine 01/06/17 12/02/18 Yolande Nicholas DO [address] [place] [address] PCP - General Internal Medicine 12/03/18 10/08/20 Anuj Priest DO [address] [place] [address] PCP - General Internal Medicine 10/09/20 06/16/21 [facility], Pcp PCP - General Internal Medicine 06/17/21 documented as of this encounter
--- OUTSIDE RECORDS SUMMARY | 2024-07-15 17:01 | XMS_ITS | Encounter Summary ---
Author Organization [facility] Address [address] [place] [address] Care Team Providers Care Molder Name Role Phone Pierre Arevalo MD Primary Care Provider Judy vailable Gerson Dawson MD Primary Care Provider Unavail able [facility], Pcp Primary Care Provider Unavailabl Coleman Sampson MD Primary Care Provider Unavaila Ayo Demarco MD Primary Care Provider [phone] Annalee Jones MD Primary Care Provider Un available Yolande Nicholas DO Primary Care Pro vider Unavailable Anuj Priest DO Primary Care Provider Judy vailable [facility], Pcp Primary Care Provider Unavailabl e Encounter Details Date Type Department Care Team Description 10/18/2013 Refill Medicine/Pediatrics - [address] [phone] Madyson Vazquez PA-C Social History Tobacco Use [...] MG tablet [Madyson Vazquez PA-C] Preferred pharmacy: [facility] [place] [place] [address] BREANN OLIVAS Comment: To дмитрий Meyer in . [place] 4pills 100mg documented in this encounter Plan of Treatment Not on file documented as of this encounter Visit Diagnoses Not on filedocumented in this encounter Care Teams Molder Relationship Specialty Start Date End Date Pierre Arevalo MD PCP - General Internal Medicine 05/07/13 4 Gerson Dawson MD PCP - General Internal Medicine 01/30/14 03/20/14 [facility], Pcp PCP - General Internal Medicine 03/21/14 05/06/14 Coleman Mccarthy MD PCP - General Internal Medicine 05/07/14 07/18/16 Ayo Carpio MD [address] [place], [place] [id number] PCP - General Internal Medicine 07/19/16 01/05/17 Annalee Jones MD [address] [place] [address] PCP - General Internal Medicine 01/06/17 12/02/18 Yolande Nicholas, DO [address] [place] [address] PCP - General Internal Medicine 12/03/18 10/08/20 Anuj Priest, DO [address] [place] [address] PCP - General Internal Medicine 10/09/20 06/16/21 [facility], Pcp PCP - General Internal Medicine 06/17/21 documented as of this encounter
--- OUTSIDE RECORDS SUMMARY | 2024-07-15 17:01 | XMS_ITS | Encounter Summary ---
Author Organization [facility] Address [address] [place] [address] Care Team Providers Care Embedded Software Development Engineer Name Role Phone Yolande Nicholas DO Primary Care Pro vider Unavailable Anuj Priest DO Primary Care Provider [facility], Pcp Primary Care Provider Unavailabl e Reason for Visit * Reason Onset Date Comments VNA Call 01/28/2020 Encounter Details Date Type Department Care Team Description 01/28/2020 Telephone Adult [address] [address] Yolande Nicholas DO VNA Call Social History [...] Kan R.N. - 01/28/2020 8:57 AM EDT [phone] (home) Pt is being seen by surgeons [...] on filedocumented in this encounter Care Teams Embedded Software Development Engineer Relationship Specialty Start Date End Date Yolande Nicholas DO PCP - General Internal Medicine 12/03/18 10/08/20 Anuj Priest DO PCP - General Internal Medicine 10/09/[address] [place] [address], Pcp PCP - General Internal Medicine 06/17/21 documented as of this encounter
--- OUTSIDE RECORDS SUMMARY | 2024-07-15 17:01 | XMS_ITS | Encounter Summary ---
Author Organization [facility] Address [address] [place] [address] Care Team Providers Care Concrete Boom Pump Operator Name Role Phone Pierre Mccarthy MD Primary Care Provider Judy vailable Gerson Dawson MD Primary Care Provider Unavail able [facility], Pcp Primary Care Provider Unavailabl e Coleman Mccarthy MD Primary Care Provider Unavaila Ayo Demarco MD Primary Care Provider [phone] Annalee Jones MD Primary Care Provider Un available Yolande Nicholas DO Primary Care Pro vider Unavailable Anuj Priest DO Primary Care Provider Judy vailable [facility], Pcp Primary Care Provider Unavailabl e Reason for Visit * Reason Onset Date Comments Eye Injury 01/06/2014 Encounter Details Date Type Department Care Team Description 01/06/2014 Telephone Adult [address] [address] Pierre Mccarthy MD Eye Injury Social History [...] ER. He agrees and will go to [facility]. He requested that we call [facility] and let them know that he was coming. Spoke with Dora at [facility] and told her that patientwas coming. * Telephone Encounter - Dora Del Castillo - 01/06/2014 2:39 PM EDT Patient is returning a call to see the eye department. He said his eye is still hurting and watering. Puffy. He isn't sure if it was the comb or poked with scissors , he is starting to get a headache. * Telephone Encounter - Bushar Workman - 01/06/2014 1:44 PM EDT Symptoms patient is presenting: poked himself in eye on Monday, red, watery eye, sore today How long has patient had these symptoms?: 1 day PCP: Pierre Mccarthy [place] / [place] / Product Type: MEDICARE [id number] documented in this encounter Plan of Treatment Not on file documented as of this encounter Visit Diagnoses Not on filedocumented in this encounter Care Teams Concrete Boom Pump Operator Relationship Specialty Start Date End Date Pierre Mccarthy MD PCP - General Internal Medicine 05/07/13 4 Gerson Dawson MD PCP - General Internal Medicine 01/30/14 03/20/14 [facility], Pcp PCP - General Internal Medicine 03/21/14 05/06/14 Coleman Mccarthy MD PCP - General Internal Medicine 05/07/14 07/18/16 Ayo Carpio MD [address] [place] [address] PCP - General Internal Medicine 07/19/16 01/05/17 Annalee Jones MD [address] [place], [place] [id number] PCP - General Internal Medicine 01/06/17 12/02/18 Yolande Nicholas, [address] [place], [place] [phone] PCP - General Internal Medicine 12/03/18 10/08/20 Anuj Priest DO [address] [place] [address] PCP - General Internal Medicine 10/09/20 06/16/21 [facility], Pcp PCP - General Internal Medicine 06/17/21 documented as of this encounter
--- OUTSIDE RECORDS SUMMARY | 2024-07-15 17:01 | XMS_ITS | Encounter Summary ---
Author [facility] Address [address] [place] [address] Care Team Providers Care Retail Marketing Executive Name Role Phone Yolande Nicholas DO Primary Care Pro vider Unavailable Anuj Priest DO Primary Care Provider Judy Gardner, Pcp Primary Care Provider Unavailabl e Encounter Details Date Type Department Care Team Description 10/07/2019 Kitchen Designer Report Medical Records [address] [place] [address] Dhruv Garcia MD Social History Tobacco Use [...] on filedocumented in this encounter Care Teams Retail Marketing Executive Relationship Specialty Start Date End Date Yolande Nicholas DO PCP - General Internal Medicine 12/03/18 10/08/20 Anuj Priest DO PCP - General Internal Medicine 10/09/20 [facility], Pcp PCP - General Internal Medicine 06/17/21 documented as of this encounter
--- OUTSIDE RECORDS SUMMARY | 2024-07-15 17:01 | XMS_ITS | Encounter Summary ---
Author [facility] Address [address] [place] [address] Care Team Providers Care Boxer Operator Name Role Phone Yolande Nicholas DO Primary Care Pro vider Unavailable Anuj Priest DO Primary Care Provider Judy Gardner, Pcp Primary Care Provider Unavailabl e Encounter Details Date Type Department Care Team Description 12/25/2019 Hospital Medical Records [address] [place] [address] Cedrick Siddiqui Social History Tobacco Use Types [...] on filedocumented in this encounter Care Teams Boxer Operator Relationship Specialty Start Date End Date Yolande Nicholas DO PCP - General Internal Medicine 12/03/18 10/08/20 Anuj Priest DO PCP - General Internal Medicine 10/09/20 2 [facility], Pcp PCP - General Internal Medicine 06/17/21 documented as of this encounter
--- OUTSIDE RECORDS SUMMARY | 2024-07-15 17:01 | XMS_ITS | Encounter Summary ---
Author [facility] Address [address] [place] [address] Care Team Providers Care Manager Inspection Name Role Phone Ghassan Burciaga MD Primary Care Provider Unavail able Pierre Arevalo MD Primary Care Provider Judy vailable Gerson Dawson MD Primary Care Provider Unavail able [facility], Pcp Primary Care Provider Unavailabl e Coleman Mccarthy MD Primary Care Provider Unavaila Ayo Demarco MD Primary Care Provider [phone] Annalee Jones MD Primary Care Provider Un available Pascual Nicholasabela DO Primary Care Pro vider Unavailable Anuj Priest DO Primary Care Provider Judy vailable [facility], Pcp Primary Care Provider Unavailabl e Encounter Details Date Type Department Care Team Description 11/07/2012 Pt. Non Urgent Medic al Question Medicine/Pediatrics - [address] [address] Ghassan Burciaga MD Social History Tobacco Use [...] MonNov 07, 2012 3:01 PM Subject: prescription [id number] Rohith Leung documented in this encounter Plan of Treatment Not on file documented as of this encounter Visit Diagnoses Not on filedocumented in this encounter Care Teams Manager Inspection Relationship Specialty Start Date End Date Ghassan Burciaga MD PCP - General 07/24/00 05/06/13 Peirre Arevalo MD PCP - General Internal Medicine 05/07/13 4 Gerson Dawson MD PCP - General Internal Medicine 01/30/14 03/20/14 [facility], Pcp PCP - General Internal Medicine 03/21/14 05/06/14 Coleman Mccarthy MD PCP - General Internal Medicine 05/07/14 07/18/16 Ayo Carpio MD [address] [place], [place] [id number] PCP - General Internal Medicine 07/19/16 01/05/17 Annalee Jones MD [address] [place] [address] PCP - General Internal Medicine 01/06/17 12/02/18 Yolande Nicholas, DO [address] [place] [address] PCP - General Internal Medicine 12/03/18 10/08/20 Anuj Priest, [address] [place] [address] PCP - General Internal Medicine 10/09/20 06/16/21 [facility], Pcp PCP - General Internal Medicine 06/17/21 documented as of this encounter
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
--- OUTSIDE RECORDS SUMMARY | 2024-07-15 17:01 | XMS_ITS | Encounter Summary ---
Author Organization [facility] Address [address] [place] [address] Care Team Providers Care Custodial Officer Name Role Phone Ghassan Burciaga MD Primary Care Provider Unavail able Pierre Arevalo MD Primary Care Provider Judy vailable Gerson Dawson MD Primary Care Provider Unavail able [facility], Pcp Primary Care Provider Unavailabl e Coleman Mccarthy MD Primary Care Provider Unavaila Ayo Demarco MD Primary Care Provider Annalee Jones MD Primary Care Provider Un available Pascual Nicholasabela DO Primary Care Pro vider Unavailable Anuj Priest DO Primary Care Provider Judy vailable [facility], Pcp Primary Care Provider Unavailabl e Encounter Details Date Type Department Care Team Description 09/21/2012 Medical Professionals Report Medical Records [address] [place] [id number] Anuj Easton Social History Tobacco Use Types [...] on filedocumented in this encounter Care Teams Custodial Officer Relationship Specialty Start Date End Date Ghassan Burciaga MD PCP - General 07/24/00 05/06/13 Pierre Arevalo MD PCP - General Internal Medicine 05/07/13 4 Gerson Dawson MD PCP - General Internal Medicine 01/30/14 03/20/14 [facility], Pcp PCP - General Internal Medicine 03/21/14 05/06/14 Coleman Mccarthy MD PCP - General Internal Medicine 05/07/14 07/18/16 Ayo Carpio MD [address] [place], [place] [id number] PCP - General Internal Medicine 07/19/16 01/05/17 Annalee Jones MD [address] [place], [place] [id number] PCP - General Internal Medicine 01/06/17 12/02/18 Yolande Nicholas DO [address] [place] [address] PCP - General Internal Medicine 12/03/18 10/08/20 Anuj Priest DO [address] [place] [address] PCP - General Internal Medicine 10/09/20 06/16/21 [facility], Pcp PCP - General Internal Medicine 06/17/21 documented as of this encounter
--- OUTSIDE RECORDS SUMMARY | 2024-07-15 17:01 | XMS_ITS | Encounter Summary ---
Author [facility] Address [address] [place] [address] Care Team Providers Care Insurance Office Manager Name Role Phone Yolande Nicholas DO Primary Care Pro vider Unavailable Anuj Priest DO Primary Care Provider Judy Gardner, Pcp Primary Care Provider Unavailabl e Encounter Details Date Type Department Care Team Description 10/23/2019 Release of Information Medical Records [address] [place] [address] Abstract, Provider Social History Tobacco Use Types [...] filedocumented in this encounter Care Teams Insurance Office Manager Relationship Specialty Start Date End Date Yolande Nicholas DO PCP - General Internal Medicine 12/03/18 10/08/20 Anuj Priest DO PCP - General Internal Medicine 10/09/20 2 Jj, Pcp PCP - General Internal Medicine 06/17/21 documented as of this encounter
--- OUTSIDE RECORDS SUMMARY | 2024-07-15 17:01 | XMS_ITS | Encounter Summary ---
Author Organization [facility] Address [address] [place] [address] Care Team Providers Care Intake Nurse Name Role Phone Yolande Nicholas DO Primary Care Pro vider Unavailable Anuj Priest DO Primary Care Provider [facility], Pcp Primary Care Provider Unavailabl e Reason for Visit * Reason Onset Date Comments Provider Call Back 11/08/2019 Encounter Details Date Type Department Care Team Description 11/08/2019 Telephone Adult Medicine [address] [address] Yolande Nicholas DO Provider Call Back Social [...] Castillo - 11/08/2019 9:02 AM EDT Patients cataloging assistant Ame , left a voicemail on patient services answering machine about their narcotic appeal decision. She would like a call back to know the outcome. Please give her a call and tellthem julian. Thank you. documented in this encounter Plan of Treatment Not on file documented as of this encounter Visit Diagnoses Not on filedocumented in this encounter Care Teams Intake Nurse Relationship Specialty Start Date End Date Yolande Nicholas DO PCP - General Internal Medicine 12/03/18 10/08/20 Anuj Priest DO PCP - General Internal Medicine 10/09/20 2 [facility], Pcp PCP - General Internal Medicine 06/17/21 documented as of this encounter
--- OUTSIDE RECORDS SUMMARY | 2024-07-15 17:01 | XMS_ITS | Encounter Summary ---
Author Organization [employer] [facility] Address [address] [place] [address] Care Team Providers Care Transfer Professor Name Role Phone Ghassan Burciaga MD Primary Care Provider Unavail able Pierre Arevalo MD Primary Care Provider Judy vailable Gerson Dawson MD Primary Care Provider Unavail able [facility], Pcp Primary Care Provider Unavailabl e Coleman Mccarthy MD Primary Care Provider Unavaila Ayo Demarco MD Primary Care Provider [phone] Annalee Jones MD Primary Care Provider Un available Pascual Nicholasabela DO Primary Care Pro vider Unavailable Anuj Priest DO Primary Care Provider Judy vailable [facility], Pcp Primary Care Provider Unavailabl e Encounter Details Date Type Department Care Team Description 01/19/2007 Hospital Medical Records [address] [place] [address] Cathie Hopkins Social History Tobacco Use Types [...] on filedocumented in this encounter Care Teams Transfer Professor Relationship Specialty Start Date End Date Ghassan Burciaga MD PCP - General 07/24/00 05/06/13 Pierre Arevalo MD PCP - General Internal Medicine 05/07/13 4 Gerson Dawson MD PCP - General Internal Medicine 01/30/14 03/20/14 [facility], Pcp PCP - General Internal Medicine 03/21/14 05/06/14 Coleman Mccarthy MD PCP - General Internal Medicine 05/07/14 07/18/16 Ayo Carpio MD [address] [place], [place] [id number] PCP - General Internal Medicine 07/19/16 01/05/17 Annalee Jones MD [address] [place], [place] [id number] PCP - General Internal Medicine 01/06/17 12/02/18 Yolande Nicholas DO [address] [place] [address] PCP - General Internal Medicine 12/03/18 10/08/20 Anuj Priest DO [address] [place] [address] PCP - General Internal Medicine 10/09/20 06/16/21 [facility], Pcp PCP - General Internal Medicine 06/17/21 documented as of this encounter
--- OUTSIDE RECORDS SUMMARY | 2024-07-15 17:01 | XMS_ITS | Encounter Summary ---
Author Organization [facility] Address [address] [place] [address] Care Team Providers Care Setter Molding And Coremaking Machines Name Role Phone Yolande Nicholas DO Primary Care Pro vider Unavailable Anuj Priest DO Primary Care Provider [facility], Pcp Primary Care Provider Unavailabl e Reason for Visit * Reason Onset Date Comments Faxed Order 09/20/2019 Encounter Details Date Type Department Care Team Description 09/20/2019 Telephone Adult [address] [address] Yolande Nicholas DO Faxed Order Social History [...] to be signed and faxed back to [phone] . documented in this encounter Plan of Treatment Not on file documented as of this encounter Visit Diagnoses Not on filedocumented in this encounter Care Teams Setter Molding And Coremaking Machines Relationship Specialty Start Date End Date Yolande Nicholas DO PCP - General Internal Medicine 12/03/18 10/08/20 Anuj Priest DO PCP - General Internal Medicine 10/09/[address] [place] [address], Pcp PCP - General Internal Medicine 06/17/21 documented as of this encounter
--- OUTSIDE RECORDS SUMMARY | 2024-07-15 17:01 | XMS_ITS | Encounter Summary ---
Author Organization [facility] Address [address] [place] [address] Care Team Providers Care Diesel Mechanic Apprentice Name Role Phone Ghassan Burciaga MD Primary Care Provider Unavail able Pierre Arevalo MD Primary Care Provider Judy vailable Gerson Dawson MD Primary Care Provider Unavail able [facility], Pcp Primary Care Provider Unavailabl Coleman Sampson MD Primary Care Provider Unavaila Ayo Demarco MD Primary Care Provider [phone] Annalee Jones MD Primary Care Provider Un available Pascual Nicholasabela DO Primary Care Pro vider Unavailable Anuj Priest DO Primary Care Provider Judy vailable [facility], Pcp Primary Care Provider Unavailabl e Encounter Details Date Type Department Care Team Description 06/27/2011 Business Doc Medical Records [address] [place] [address] Abstract, Provider Social History Tobacco Use Types [...] on filedocumented in this encounter Care Teams Diesel Mechanic Apprentice Relationship Specialty Start Date End Date Ghassan Burciaga MD PCP - General 07/24/00 05/06/13 Pierre Arevalo MD PCP - General Internal Medicine 05/07/13 4 Gerson Dawson MD PCP - General Internal Medicine 01/30/14 03/20/14 [facility], Pcp PCP - General Internal Medicine 03/21/14 05/06/14 Coleman Mccarthy MD PCP - General Internal Medicine 05/07/14 07/18/16 Ayo Carpio MD [address] [place], [place] [id number] PCP - General Internal Medicine 07/19/16 01/05/17 Annalee Jones MD [address] [place], [place] [id number] PCP - General Internal Medicine 01/06/17 12/02/18 Yolande Nicholas DO [address] [place] [address] PCP - General Internal Medicine 12/03/18 10/08/20 Anuj Priest DO [address] [place] [address] PCP - General Internal Medicine 10/09/20 06/16/21 [facility], Pcp PCP - General Internal Medicine 06/17/21 documented as of this encounter
--- OUTSIDE RECORDS SUMMARY | 2024-07-15 17:01 | XMS_ITS | Encounter Summary ---
Author Organization [facility] Address [address] [place] [address] Care Team Providers Care Press Clippings Cutter And Paster Name Role Phone Yolande Nicholas DO Primary Care Pro vider Unavailable Anuj Priest DO Primary Care Provider [facility], Pcp Primary Care Provider Unavailabl e Reason for Visit * Reason Onset Date Comments Faxed Order 02/21/2020 Encounter Details Date Type Department Care Team Description 02/21/2020 Telephone Adult [address] [address] Yolande Nicholas DO Faxed Order Social History [...] on filedocumented in this encounter Care Teams Press Clippings Cutter And Paster Relationship Specialty Start Date End Date Yolande Nicholas DO PCP - General Internal Medicine 12/03/18 10/08/20 Anuj Priest DO PCP - General Internal Medicine 10/09/[address] [place] [address], Pcp PCP - General Internal Medicine 06/17/21 documented as of this encounter
--- OUTSIDE RECORDS SUMMARY | 2024-07-15 17:01 | XMS_ITS | Encounter Summary ---
Author Organization [facility] Address [address] [place] [address] Care Team Providers Care Knowledge Engineer Name Role Phone Ghassan Burciaga MD Primary Care Provider Unavail able Pierre Arevalo MD Primary Care Provider Judy vailable Gerson Dawson MD Primary Care Provider Unavail able [facility], Pcp Primary Care Provider Unavailabl Coleman Sampson MD Primary Care Provider Unavaila Ayo Demarco MD Primary Care Provider [phone] Annalee Jones MD Primary Care Provider Un available Pascual Nicholasabela DO Primary Care Pro vider Unavailable Anuj Priest DO Primary Care Provider Judy vailable [facility], Pcp Primary Care Provider Unavailabl e Encounter Details Date Type Department Care Team Description 06/24/2011 Business Doc Medical Records [address] [place] [address] Abstract, Provider Social History Tobacco Use Types [...] on filedocumented in this encounter Care Teams Knowledge Engineer Relationship Specialty Start Date End Date Ghassan Burciaga MD PCP - General 07/24/00 05/06/13 Pierre Arevalo MD PCP - General Internal Medicine 05/07/13 4 Gerson Dawson MD PCP - General Internal Medicine 01/30/14 03/20/14 [facility], Pcp PCP - General Internal Medicine 03/21/14 05/06/14 Coleman Mccarthy MD PCP - General Internal Medicine 05/07/14 07/18/16 Ayo Carpio MD [address] [place], [place] [id number] PCP - General Internal Medicine 07/19/16 01/05/17 Annalee Jones MD [address] [place], [place] [id number] PCP - General Internal Medicine 01/06/17 12/02/18 Yolande Nicholas DO [address] [place] [address] PCP - General Internal Medicine 12/03/18 10/08/20 Anuj Priest DO [address] [place] [address] PCP - General Internal Medicine 10/09/20 06/16/21 [facility], Pcp PCP - General Internal Medicine 06/17/21 documented as of this encounter
--- OUTSIDE RECORDS SUMMARY | 2024-07-15 17:01 | XMS_ITS | Encounter Summary ---
Author [facility] Address [address] [place] [address] Care Team Providers Care Color Making Supervisor Name Role Phone Yolande Nicholas DO Primary Care Pro vider Unavailable Anuj Priest DO Primary Care Provider Judy Gardner, Pcp Primary Care Provider Unavailabl e Encounter Details Date Type Department Care Team Description 09/26/2019 Telephone Adult Medicine B - [place] [address] [place] [address] Teri Layton MD Social History Tobacco Use [...] on filedocumented in this encounter Care Teams Color Making Supervisor Relationship Specialty Start Date End Date Yolande Nicholas DO PCP - General Internal Medicine 12/03/18 10/08/20 Anuj Priest DO PCP - General Internal Medicine 10/09/2006/16/ 2 J[facility], Pcp PCP - General Internal Medicine 06/17/21 documented as of this encounter
--- OUTSIDE RECORDS SUMMARY | 2024-07-15 17:01 | XMS_ITS | Encounter Summary ---
Author Organization [facility] Address [address] [place] [address] Care Team Providers Care Ash Pit Worker Name Role Phone Yolande Nicholas DO Primary Care Pro vider Unavailable Anuj Priest DO Primary Care Provider Judy álvarez [facility], Pcp Primary Care Provider Unavailabl e Reason for Visit * Reason Comments E-prescribe Rx Request Encounter Details Date Type Department Care Team Description 12/25/2019 Refill Adult Medicine [address] [address] Alana [place] MD [address] [place] [phone] E-prescribe Rx Request Social History Tobacco [...] on filedocumented in this encounter Care Teams Ash Pit Worker Relationship Specialty Start Date End Date Yolande Nicholas DO PCP - General Internal Medicine 12/03/18 10/08/20 Anuj Priest DO PCP - General Internal Medicine 10/09/20 2 [facility], Pcp PCP - General Internal Medicine 06/17/21 documented as of this encounter
--- OUTSIDE RECORDS SUMMARY | 2024-07-15 17:01 | XMS_ITS | Encounter Summary ---
Author Organization [facility] Address [address] [place] [address] Care Team Providers Care Base Ply Hand Name Role Phone Yolande Nicholas DO Primary Care Pro vider Unavailable Anuj Priest DO Primary Care Provider [facility], Pcp [facility] Encounter Details Date Type Department Care Team Description 01/22/2020 Pt. Non Urgent Medic al Question Adult Medicine [address] [address] Yolande Nicholas DO Social History Tobacco Use [...] they are planning to do in the [facility] o[facility] weeks. At this point we have followed all your previous orders regarding who to see and when. Regarding meeting [facility] Needs, we are working with Luda He APRN at [facility] in [place], [place] P: [phone] Therefore, from all the doctor's reports you [...] on filedocumented in this encounter Care Teams Base Ply Hand Relationship Specialty Start Date End Date Yolande Nicholas DO PCP - General Internal Medicine 12/03/18 10/08/20 Anuj Priest DO PCP - General Internal Medicine 10/09/[address] [place] [address], Pcp PCP - General Internal Medicine 06/17/21 documented as of this encounter
--- OUTSIDE RECORDS SUMMARY | 2024-07-15 17:01 | XMS_ITS | Encounter Summary ---
Author [facility] Address [address] [place] [address] Care Team Providers Care Trim Mounter Name Role Phone Yolande Nicholas DO Primary Care Pro vider Unavailable Anuj Priest DO Primary Care Provider Judy Gardner, Pcp Primary Care Provider Unavailabl e Encounter Details Date Type Department Care Team Description 12/26/2019 Hospital Medical Records [address] [place] [address] Social History Tobacco Use Types Packs/Day Years [...] on filedocumented in this encounter Care Teams Trim Mounter Relationship Specialty Start Date End Date Yolande Nicholas DO PCP - General Internal Medicine 12/03/18 10/08/20 Anuj Priest DO PCP - General Internal Medicine 10/09/20 2 Jose G Gardner PCP - General Internal Medicine 06/17/21 documented as of this encounter
--- OUTSIDE RECORDS SUMMARY | 2024-07-15 17:01 | XMS_ITS | Encounter Summary ---
Author [facility] Address [address] [place] [address] Care Team Providers Care Quarry Supervisor Name Role Phone Yolande Nicholas DO Primary Care Pro vider Unavailable Anuj Priest DO Primary Care Provider [facility], Pcp Primary Care Provider Unavailabl e Reason for Visit * Reason Comments E-prescribe Rx Request Encounter Details Date Type Department Care Team Description 01/01/2020 Refill Adult Medicine [address] [address] Alana [place] MD [address] [place] [phone] E-prescribe Rx Request Social History Tobacco [...] on filedocumented in this encounter Care Teams Quarry Supervisor Relationship Specialty Start Date End Date Yolande Nicholas DO PCP - General Internal Medicine 12/03/18 10/08/20 Anuj Priest DO PCP - General Internal Medicine 10/09/20 2 [facility], Pcp PCP - General Internal Medicine 06/17/21 documented as of this encounter
--- OUTSIDE RECORDS SUMMARY | 2024-07-15 17:02 | XMS_ITS | Encounter Summary ---
Author [facility] Address [address] [place] [address] Care Team Providers Care Trim Master Operator Name Role Phone Ghassan Burciaga MD Primary Care Provider Unavail able Pierre Arevalo MD Primary Care Provider Judy vailable Gerson Dawson MD Primary Care Provider Unavail able [facility], Pcp Primary Care Provider Unavailabl e Coleman Mccarthy MD Primary Care Provider Unavaila Ayo Demarco MD Primary Care Provider [phone] Annalee Jones MD Primary Care Provider Un available Pascual Nicholasabela DO Primary Care Pro vider Unavailable Anuj Priest DO Primary Care Provider Judy vailable [facility], Pcp Primary Care Provider Unavailabl e Encounter Details Date Type Department Care Team Description 04/30/2007 Hospital Medical Records [address] [place] [address] Anuj Easton Jr. [facility] [address] [place], [place] [id number] Social History Tobacco Use Types Packs/Day Years [...] filedocumented in this encounter Care Teams Trim Master Operator Relationship Specialty Start Date End Date Ghassan Burciaga MD PCP - General 07/24/00 05/06/13 Pierre Arevalo MD PCP - General Internal Medicine 05/07/13 4 Gerson Dawson MD PCP - General Internal Medicine 01/30/14 03/20/14 [facility], Pcp PCP - General Internal Medicine 03/21/14 05/06/14 Coleman Mccarthy MD PCP - General Internal Medicine 05/07/14 07/18/16 Ayo Carpio MD [address] [place] [address] PCP - General Internal Medicine 07/19/16 01/05/17 Annalee Jones MD [address] [place] [address] PCP - General Internal Medicine 01/06/17 12/02/18 Yolande Nicholas, DO [address] [place] [address] PCP - General Internal Medicine 12/03/18 10/08/20 Anuj Priest, DO [address] [place] [address] PCP - General Internal Medicine 10/09/20 06/16/21 [facility], Pcp PCP - General Internal Medicine 06/17/21 documented as of this encounter
--- OUTSIDE RECORDS SUMMARY | 2024-07-15 17:02 | XMS_ITS | Encounter Summary ---
Author Organization [employer] Address [address] [facility] [address] [place] [address] Care Team Providers Care Bacon Skinner Name Role Phone Sesar Pereyra MD Primary Care Provider [phone] Encounter Details Date Type Department Care Team (Late st Contact Info) Description 04/02/2024 Orders Only [facility] [address] [place] [address] Provider, MD Jazmyn Social History Tobacco Use [...] Description 09/11/2024 10:30 AM EDT Office Visit [facility] [address] [place] [address] Sesar Pereyra MD [address] [place] [address] documented as of this encounter Procedures Procedure [...] documented as of this encounter Care Teams Bacon Skinner Relationship Specialty Start Date End Date Sesar Pereyra MD [address] [place] [address] PCP - General Internal Medicine 03/01[facility] 03/22/24 documented as of this encounter
--- OUTSIDE RECORDS SUMMARY | 2024-07-15 17:02 | XMS_ITS | Encounter Summary ---
Author Organization [facility] Address [address] [place] [address] Care Team Providers Care Chisel Grinder Name Role Phone Yolande Nicholas DO Primary Care Pro vider Unavailable Anuj Priest DO Primary Care Provider [facility], Pcp Primary Care Provider Unavailabl e Reason for Visit * Reason Onset Date Comments Faxed Refill 08/13/2020 Melatonin 3 MG T ab Encounter Details Date Type Department Care Team Description 08/13/2020 Telephone Adult [address] [address] Yolande Nicholas DO Faxed Refill (Melatonin 3 [...] last prescribed in 2016. Called pt at [phone], phone continuously busy. * Telephone Encounter - [...] MED LIST AND IS IDENTIFIED BELOW): {MED LIST:33683) Med name: Melatonin 3 MG Tab Dosage: 3 mg tab # of tablets: Local pharmacy with request for 30 -day supply Instructions: Take one tablet by mouth daily at bedtime for sleep Did you check the pharmacy information above?: YES Patients current insurance carrier: Payor: [facility] - MEDICARE / Plan: MEDICARE FFS $0 KARI MESA [id number] / Product Type: MEDICARE [id number] documented in this encounter Plan of Treatment Not on file documented as of this encounter Visit Diagnoses Not on filedocumented in this encounter Care Teams Chisel Grinder Relationship Specialty Start Date End Date Yolande Nicholas DO PCP - General Internal Medicine 12/03/18 10/08/20 Anuj Priest DO PCP - General Internal Medicine 10/09/20 2 [facility], Pcp PCP - General Internal Medicine 06/17/21 documented as of this encounter
--- OUTSIDE RECORDS SUMMARY | 2024-07-15 17:02 | XMS_ITS | Encounter Summary ---
Author Organization [employer] Address [address] [facility] 7t [place] [address] Care Team Providers Care Dishtank Operator Name Role Phone Sesar Pereyra MD Primary Care Provider [phone] Reason for Visit * Reason Onset Date Comments Med Refill 07/04/2024 Encounter Details Date Type Department Care Team (Late st Contact Info) Description 07/04/2024 Refill [facility] MEDICINE [address] [place] [address] Sesar Pereyra MD [address] [place] [address] Social History Tobacco Use Types Packs/Day Years [...] 7.5 MG tablet To be sent to: [facility] - [place], [place] - [address] [facility] [address] documented in this encounter Plan of Treatment Upcoming Encounters Date Type Department Care Team (Late st Contact Info) Description 09/11/2024 10:30 AM EDT Office Visit [facility] MED & PEDS [address] [place] [address] Sesar Pereyra MD [address] [place] [address] documented as of this encounter Visit Diagnoses Not on filedocumented in this encounter Additional Health Concerns Assessment Noted Time PHQ-9 Depression Total Score: 16 024 10:59 AM EDT documented as of this encounter Care Teams Dishtank Operator Relationship Specialty Start Date End Date Sesar Pereyra MD [address] [place] [address] PCP - General Internal Medicine 03/01/21 [facility] 03/22/24 documented as of this encounter
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
--- OUTSIDE RECORDS SUMMARY | 2024-07-15 17:02 | XMS_ITS | Encounter Summary ---
Author Organization [employer] [facility] Address [address] [place] [address] Care Team Providers Care Drawer Fitter Name Role Phone Coleman Mccarthy MD Primary Care Provider Unavaila ble Ayo Carpio MD Primary Care Provider [phone] Annalee Jones MD Primary Care Provider Un available Yolande Nicholas DO Primary Care Pro vider Unavailable Anuj Priest DO Primary Care Provider [facility], Pcp Primary Care Provider Unavailabl e Encounter Details Date Type Department Care Team Description 09/16/2015 THERAPY DIRECTOR/[facility] Report Medical Records [address] [place] [id number] Abstract, Provider Social History Tobacco Use Types [...] on filedocumented in this encounter Care Teams Drawer Fitter Relationship Specialty Start Date End Date Coleman Mccarthy MD PCP - General Internal Medicine 05/07/14 07/18/16 Ayo Carpio MD [address] [place] [address] [id number] PCP - General Internal Medicine 07/19/16 01/05/17 Annalee Jones MD [address] [place] [address] PCP - General Internal Medicine 01/06/17 12/02/18 Yolande Nicholas, [address] [place] [address] PCP - General Internal Medicine 12/03/18 10/08/20 Anuj Priest DO [address] [place] [address] PCP - General Internal Medicine 10/09/20 06/16/21 [facility], Pcp [address] [place] [address] PCP - General Internal Medicine 06/17/21 documented as of this encounter
--- OUTSIDE RECORDS SUMMARY | 2024-07-15 17:02 | XMS_ITS | Encounter Summary ---
Author Organization [employer] Address [address] [facility] 7t [place] [address] Care Team Providers Care Ecmo Specialist Name Role Phone Sesar Pereyra MD Primary Care Provider [phone] Reason for Visit * Reason Onset Date Comments Med Refill 04/28/2024 Encounter Details Date Type Department Care Team ([facility] st Contact Info) Description 04/28/2024 Refill [facility] MED & PEDS [address] [place] [address] Sesar Pereyra MD [address] [place] [address] Social History Tobacco Use Types Packs/Day Years [...] Upcoming Encounters Date Type Department Care Team ([facility] st Contact Info) Description 09/11/2024 10:30 AM EDT Office Visit [facility] MED & PEDS [address] [place] [address] Sesar Pereyra MD [address] [place] [address] documented as of this encounter Visit Diagnoses Not on filedocumented in this encounter Additional Health Concerns Assessment Noted Time PHQ-9 Depression Total Score: 16 024 10:59 AM EDT documented as of this encounter Care Teams Ecmo Specialist Relationship Specialty Start Date End Date Sesar Pereyra MD [address] [place] [address] PCP - General Internal Medicine 03/01/21 [facility] 03/22/24 documented as of this encounter
--- OUTSIDE RECORDS SUMMARY | 2024-07-15 17:02 | XMS_ITS | Encounter Summary ---
Author Organization [facility] Address [address] [place] [address] Care Team Providers Care Product Development Intern Name Role Phone Yolande Nicholas DO Primary Care Pro vider Unavailable Anuj Priest DO Primary Care Provider [facility], Pcp [facility] Encounter Details Date Type Department Care Team Description 06/26/2020 Pt. 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
--- OUTSIDE RECORDS SUMMARY | 2024-07-15 17:02 | XMS_ITS | Encounter Summary ---
Author Organization [employer] Address [address] [facility] 7t [place] [address] Care Team Providers Care Sas Administrator Name Role Phone Sesar Pereyra MD Primary Care Provider [phone]- [phone] Reason for Visit * Reason Onset Date Comments Med Refill 04/02/2024 Encounter Details Date Type Department Care Team ([facility] st Contact Info) Description 04/02/2024 Telephone [facility] MEDICINE [address] [place] [address] Sesar Pereyra MD [address] [place] [address] Med Refill Social History Tobacco Use Types [...] 9:39 AM EST Medication was sent to [facility] on 04/01/24 #30 with 11 refills. * Telephone Encounter - Miri Young - 04/02/2024 9:33 AM EST TC from pt requesting medication refill. Medications needing refill : metoprolol tartrate (Lopressor) 25 MG tablet To be sent to: [facility] documented in this encounter Plan of Treatment Upcoming Encounters Date Type Department Care Team (Late st Contact Info) Description 09/11/2024 10:30 AM EDT Office Visit [facility] MED & PEDS [address] [place] [address] Sesar Pereyra MD [address] [place] [address] documented as of this encounter Visit Diagnoses Not on filedocumented in this encounter Additional Health Concerns Assessment Noted Time PHQ-9 Depression Total Score: 16 024 10:59 AM EDT documented as of this encounter Care Teams Sas Administrator Relationship Specialty Start Date End Date Sesar Pereyra MD [address] [place] [address] PCP - General Internal Medicine 03/01/21 [facility] 03/22/24 documented as of this encounter
--- OUTSIDE RECORDS SUMMARY | 2024-07-15 17:02 | XMS_ITS | Encounter Summary ---
Author Organization [employer] Address [address] [facility] 7t [place] [address] Care Team Providers Care Voting Machine Repairer Name Role Phone Sesar Pereyra MD Primary Care Provider [phone]- [phone] Reason for Visit * Reason Onset Date Comments Med Refill 04/11/2024 Encounter Details Date Type Department Care Team (Late st Contact Info) Description 04/11/2024 Refill [facility] MEDICINE [address] [place] [address] Natasha Jiang MD [address] [place] [address] Closed nondisplaced fracture of acromial end of [...] Upcoming Encounters Date Type Department Care Team ([facility] st Contact Info) Description 09/11/2024 10:30 AM EDT Office Visit [facility] MED & PEDS [address] [place] [address] Sesar Pereyra MD [address] [place] [address] documented as of this encounter Visit Diagnoses Diagnosis Closed nondisplaced fracture of acromial end of right clavicle, initial encounter documented in this encounter Additional Health Concerns Assessment Noted Time PHQ-9 Depression Total Score: 16 024 10:59 AM EDT documented as of this encounter Care Teams Voting Machine Repairer Relationship Specialty Start Date End Date Sesar Pereyra MD [address] [place] [address] PCP - General Internal Medicine 03/01/21 [facility] 03/22/24 documented as of this encounter
--- OUTSIDE RECORDS SUMMARY | 2024-07-15 17:02 | XMS_ITS | Encounter Summary ---
Author Organization [employer] Address [address] [facility] 7t [place] [address] Care Team Providers Care Transitions Manager Rn Name Role Phone Sesar Pereyra MD Primary Care Provider [phone]- [phone] Reason for Visit * Reason Onset Date Comments Med Refill 04/26/2024 Encounter Details Date Type Department Care Team ([facility] st Contact Info) Description 04/26/2024 Telephone [facility] MEDICINE [address] [place] [address] Sesar Pereyra MD [address] [place] [address] Med Refill Social History Tobacco Use Types [...] 7.5 MG tablet To be sent to: [facility] - [place], [place] - [address] [facility] [address] documented in this encounter Plan of Treatment Upcoming Encounters Date Type Department Care Team (Late st Contact Info) Description 09/11/2024 10:30 AM EDT Office Visit [facility]S [address] [place] [address] Sesar Pereyra MD [address] [place] [address] documented as of this encounter Visit Diagnoses Not on filedocumented in this encounter Additional Health Concerns Assessment Noted Time PHQ-9 Depression Total Score: 16 024 10:59 AM EDT documented as of this encounter Care Teams Transitions Manager Rn Relationship Specialty Start Date End Date Sesar Pereyra MD [address] [place] [address] PCP - General Internal Medicine 03/01/21 [facility] 03/22/24 documented as of this encounter
--- OUTSIDE RECORDS SUMMARY | 2024-07-15 17:02 | XMS_ITS | Encounter Summary ---
Author Organization [facility] Address [address] [place] [address] Care Team Providers Care Aba Therapist Name Role Phone Annalee Jones MD Primary Care Provider Un available Yolande Nicholas DO Primary Care Pro vider Unavailable Anuj Priest DO Primary Care Provider Judy vailable [facility], Pcp Primary Care Provider Unavailabl e Encounter Details Date Type Department Care Team Description 08/24/2017 Release of Information Medical Records [address] [place] [id number] Abstract, Provider Social History Tobacco Use Types [...] on filedocumented in this encounter Care Teams Aba Therapist Relationship Specialty Start Date End Date Annalee Jones MD PCP - General Internal Medicine 01/06/17 9 Yolande Nicholas DO PCP - General Internal Medicine 12/03/18 10/08/20 Anuj Priest DO PCP - General Internal Medicine 10/09/20 2 [facility], Pcp PCP - General Internal Medicine 06/17/21 documented as of this encounter
--- OUTSIDE RECORDS SUMMARY | 2024-07-15 17:02 | XMS_ITS | Encounter Summary ---
Author Organization [employer] [facility] Address [address] [place] [address] Care Team Providers Care Turret Lathe Machinist Name Role Phone Ghassan Burciaga MD Primary [...] Care Team Description 02/02/2009 Hospital Medical Records [address] [place] [address] Bacilio Ward MD Social History Tobacco Use [...] on filedocumented in this encounter Care Teams Turret Lathe Machinist Relationship Specialty Start Date End Date Ghassan Burciaga MD PCP - General 07/24/00 05/06/13 Pierre Arevalo MD PCP - General Internal Medicine 05/07/13 4 Gerson Dawson MD PCP - General Internal Medicine 01/30/14 03/20/14 [facility], Pcp PCP - General Internal Medicine 03/21/14 05/06/14 Coleman Mccarthy MD PCP - General Internal Medicine 05/07/14 07/18/16 Ayo Carpio MD [address] [place], [place] [id number] PCP - General Internal Medicine 07/19/16 01/05/17 Annalee Jones MD [address] [place], [place] [id number] PCP - General Internal Medicine 01/06/17 12/02/18 Yolande Nicholas, DO [address] [place] [address] PCP - General Internal Medicine 12/03/18 10/08/20 Anuj Priest, [address] [place] [address] PCP - General Internal Medicine 10/09/20 06/16/21 [facility], Pcp PCP - General Internal Medicine 06/17/21 documented as of this encounter
--- OUTSIDE RECORDS SUMMARY | 2024-07-15 17:02 | XMS_ITS | Clinical Summary ---
Author Organization Unknown Care Team Providers Care Radio Program Checker Name Role Phone MARCO RAMIREZ, POOJA Unavailable Unavailabl e BARBARA PT, COURTNEY Unavailable Unavailable SHERYL MACHINE PRESERVATIVE FILLER, JANETT Unavailable Unavailable LESLYE RN, DAGOBERTO Unavailable Unavailab abraham [employer], ANTONIO Unavailable Unavailable READING OT, JOANIE Unavailable Unavailable CHANEY CLOUD SUBJECT MATTER EXPERT, TIA Unavailable Unavailable Payers Payer Name Policy Type Policy Number Effective Date Expira tion Date [facility] [id number] Problems Condition Name Condition Details Condition Category Status Onset Date Resolution Date Last Treatment Date Treating Clinician Comments 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, L SHLDR, 7THD Active 06-27 00:00: 00 ANTERIOR DISLOCATION OF LEFT HUMERUS, SUBSEQUENT ENCOUNTER Active 06-27 00:00: 00 REPEATED FALLS Active 06-21 00:00: 00 UNSPECIFIED ATRIAL FLUTTER Active 06-27 00:00: 00 SUPRAVENTRIC ULAR TACHYCARDIA, UNSPECIFIED Active [...] 2023-05 00:00: 00 ATHSCL HEART DISEASE OF [place] CORONARY ARTERY W/O ANG PCTRS Active 05-01 [...] HISTORY OF COVID-19 Active 2023-05 00:00: 00 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 Active 2023-05 [...] 2023-05 00:00: 00 05-16 23:59 :00 No [id number] PAIN 15 mg EVERY 6 HOURS NEEDED 15 mg EVERY 6 HOURS NEEDED (route: oral) Med Classific ation: Analgesic , Anti-infl ammatory or Antipyret ic clonazepam 0.5 mg tablet 2023-05 00:00: 00 Yes [id number] ANXIETY 0.5 mg 2 TIMES DAILY 0.5 mg 2 TIMES DAILY (route: oral) Med Classific ation: Central Nervous System Agents lisinopril 40 mg tablet 2023-05 00:00: 00 03-21 23:59 :00 No [id number] CAD 40 mg DAILY 40 mg DAILY (route: oral) Med Classific ation: Cardiovas cular Therapy Agents atorvastati n 80 mg tablet 2023-05 00:00: 00 Yes [id number] HYPERTENSIO N 80 mg DAILY 80 mg DAILY (route: oral) Med Classific ation: Cardiovas cular Therapy Agents cilostazol 50 mg tablet 2023-05 00:00: 00 Yes [id number] HYPERTENSIO N 50 mg 2 TIMES DAILY 50 mg 2 TIMES DAILY (route: oral) Med Classific ation: Hematolog ical Agents clopidogrel 75 mg tablet 2023-05 00:00: 00 03-21 23:59 :00 No [id number] CORONARY ARTERY DISEASE 75 mg DAILY 75 mg DAILY (route: oral) Med Classific ation: Hematolog ical Agents Eliquis 5 mg tablet 2023-05 00:00: 00 Yes [id number] ANTI ARRHYTHMIC 5 mg 2 TIMES DAILY 5 mg 2 TIMES DAILY (route: oral) Med Classific ation: Hematolog ical Agents furosemide 40 mg tablet 2023-05 00:00: 00 03-21 23:59 :00 No [id number] BPH 40 mg DAILY 40 mg DAILY (route: oral) Alternate Route: INTRA-MUS CULAR. Med Classific ation: Cardiovas cular Therapy Agents metoprolol tartrate 50 mg tablet 2023-05 00:00: 00 03-22 23:59 :00 No [id number] CAD 50 mg DAILY 50 mg DAILY (route: oral) Med Classific ation: Cardiovas cular Therapy Agents quetiapine 25 mg tablet 2023-05 00:00: 00 Yes [id number] MOOD STABILIZER 25 mg 2 TIMES DAILY 25 mg 2 TIMES DAILY (route: oral) Med Classific ation: Central Nervous System Agents sertraline 50 mg tablet 2023-05 00:00: 00 Yes [id number] MOOD STABILIZER 50 mg DAILY 50 mg DAILY (route: oral) Med Classific ation: Central Nervous System Agents tamsulosin 0.4 mg capsule 2023-05 00:00: 00 Yes [id number] BPH 0.4 mg DAILY 0.4 mg DAILY (route: oral) Med Classific ation: Genitouri nary Therapy docusate sodium 100 mg tablet 2023-05 00:00: 00 Yes [id number] CONSTIPATIO N 100 mg DAILY 100 mg DAILY (route: oral) Med Classific ation: Gastroint estinal Therapy Agents gabapentin 100 mg capsule 2023-05 00:00: 00 Yes [id number] PAIN 1-3 capsule BEDTIME 1-3 capsule BEDTIME (route: oral) Med Classific ation: Central Nervous System Agents metoprolol tartrate 25 mg tablet 2023-05 00:00: 00 03-27 16:09 :43.1 53 No [id number] HYPERTENSIO N 25 mg 2 TIMES DAILY 25 mg 2 TIMES DAILY (route: oral) Med Classific ation: Cardiovas cular Therapy Agents Multaq 400 mg tablet 2023-05 00:00: 00 Yes [id number] ANTIARRHYTH MICHAEL 400 mg 2 TIMES DAILY 400 mg 2 TIMES DAILY (route: oral) Med Classific ation: Cardiovas cular Therapy Agents furosemide 40 mg tablet 2023-05 00:00: 00 Yes [id number] edema 1 tablet DAILY 1 tablet DAILY (route: oral) Med Classific ation: Cardiovas cular Therapy Agents dextroamphe tamine-amph etamine 7.5 mg tablet 2023-05 00:00: 00 Yes [id number] attention 1 tablet DAILY 1 tablet DAILY (route: oral) Med Classific ation: Central Nervous System Agents metoprolol tartrate 25 mg tablet 2023-05 00:00: 00 06-27 23:59 :00 No [id number] heart rate 0.5 tablet 2 TIMES DAILY 0.5 tablet 2 TIMES DAILY (route: oral) Med Classific ation: Cardiovas cular Therapy Agents cephalexin 500 mg capsule 2023-05 00:00: 00 04-10 23:59 :00 No [id number] CELLULITIS LLL 500 mg 4 TIMES DAILY 500 mg 4 TIMES DAILY (route: oral) Med Classific ation: Anti-Infe ctive Agents hydralazine 25 mg tablet 2023-05 00:00: 00 Yes [id number] HTN 25 mg 2 TIMES DAILY 25 mg 2 TIMES DAILY (route: oral) Med Classific ation: Cardiovas cular Therapy Agents melatonin 3 mg tablet 06-27 00:00: 00 Yes [id number] INSOMNIA 1 tablet BEDTIME 1 tablet BEDTIME (route: oral) Med Classific ation: Central Nervous System Agents metoprolol tartrate 25 mg tablet 06-27 00:00: 00 Yes [id number] HTN 1 tablet DAILY 1 tablet DAILY (route: oral) Med Classific ation: Cardiovas cular Therapy Agents oxycodone 5 mg tablet 06-27 00:00: 00 Yes [id number] PAIN 1 tablet EVERY 8 HOURS 1 tablet EVERY 8 HOURS (route: oral) Med Classific ation: Analgesic , Anti-infl ammatory or Antipyret ic polyethylen e glycol 3350 17 gram/dose oral powder 06-27 00:00: 00 Yes [id number] CONSTIPATIO N 17 gram BEDTIME 17 gram BEDTIME (route: oral) Med Classific ation: Gastroint estinal Therapy Agents Tylenol 8 Hour 650 mg tablet,exte nded release 06-27 00:00: 00 Yes [id number] PAIN/FEVER 1 tablet EVERY 6 HOURS 1 tablet EVERY 6 HOURS (route: oral) Med Classific ation: Analgesic , Anti-infl ammatory or Antipyret ic Vital Signs Vital Name Observation Time Observation [...] CONSULTING PHYSICIANS. RN TO OBSERVE AND ASSESS, CLOUD SUBJECT MATTER EXPERT/HOME HEALTH ASSISTANT TO OBSERVE FOR RISK FOR FALLS AND INSTRUCT IN FALL PREVENTION, HOME SAFETY, MEDICATION MANAGEMENT, INFECTION PREVENTION, AND NUTRITION MANAGEMENT. RN/CLOUD SUBJECT MATTER EXPERT/HOME HEALTH ASSISTANT NURSE MAY PERFORM O2 SATURATION LEVEL ON ADMISSION AND PRN FOR RN TO ASSESS/CLOUD SUBJECT MATTER EXPERT TO OBSERVE PATIENT, WITH NOTIFICATION TO THE PHYSICIAN IF SATURATION IS 90% IN THE ABSENCE OF MORE SPECIFIC PARAMETERS FROM THE PHYSICIAN. AGENCY MAY PERFORM A RESUMPTION OF CARE VISIT FOLLOWING ANY HOSPITAL ADMISSION. RN/CLOUD SUBJECT MATTER EXPERT/HOME HEALTH ASSISTANT TO MONITOR CO-MORBID CONDITIONS LISTED ON THE PLAN OF CARE AND ANY NEW CONDITIONS THAT PRESENT THEMSELVES DURING THIS EPISODE TO IDENTIFY CHANGES AND INTERVENE TO MINIMIZE COMPLICATIONS. [code = RN TO OBSERVE, ASSESS, EVALUATE, AND DEVELOP AN INDIVIDUALIZED PLAN OF CARE. AGENCY MAY ACCEPT ORDERS FROM CONSULTING PHYSICIANS. RN TO OBSERVE AND ASSESS, CLOUD SUBJECT MATTER EXPERT/HOME HEALTH ASSISTANT TO OBSERVE FOR RISK FOR FALLS AND INSTRUCT IN FALL PREVENTION, HOME SAFETY, MEDICATION MANAGEMENT, INFECTION PREVENTION, AND NUTRITION MANAGEMENT. RN/CLOUD SUBJECT MATTER EXPERT/HOME HEALTH ASSISTANT NURSE MAY PERFORM O2 SATURATION LEVEL ON ADMISSION AND PRN FOR RN TO ASSESS/CLOUD SUBJECT MATTER EXPERT TO OBSERVE PATIENT, WITH NOTIFICATION TO THE PHYSICIAN IF SATURATION IS 90% IN THE ABSENCE OF MORE SPECIFIC PARAMETERS FROM THE PHYSICIAN. AGENCY MAY PERFORM A RESUMPTION OF CARE VISIT FOLLOWING ANY HOSPITAL ADMISSION. RN/CLOUD SUBJECT MATTER EXPERT/HOME HEALTH ASSISTANT TO MONITOR CO-MORBID CONDITIONS LISTED ON THE PLAN OF CARE AND ANY NEW CONDITIONS THAT PRESENT THEMSELVES DURING THIS EPISODE TO IDENTIFY CHANGES AND INTERVENE TO MINIMIZE COMPLICATIONS.] Future Scheduled Test MEDICATION MANAGEMENT; RN/CLOUD SUBJECT MATTER EXPERT/HOME HEALTH ASSISTANT TO REVIEW MEDICATIONS FOR INTERACTIONS, EFFECTIVENESS OF DRUG THERAPY, AND SIGNS/SYMPTOMS OF ADVERSE REACTIONS. MAY INSTRUCT AND REINFORCE MEDICATION TEACHING RELATED TO THE USE OF MEDICATIONS, DOSAGE, FREQUENCY, PURPOSE, SIDE EFFECTS, AND TO REPORT COMPLICATIONS. HELP SET UP BUBBLE PACKS [code = MEDICATION MANAGEMENT; RN/CLOUD SUBJECT MATTER EXPERT/HOME HEALTH ASSISTANT TO REVIEW MEDICATIONS FOR INTERACTIONS, EFFECTIVENESS OF DRUG THERAPY, AND SIGNS/SYMPTOMS OF ADVERSE REACTIONS. MAY INSTRUCT AND REINFORCE MEDICATION TEACHING RELATED TO THE USE OF MEDICATIONS, DOSAGE, FREQUENCY, PURPOSE, SIDE EFFECTS, AND TO REPORT COMPLICATIONS. HELP SET UP BUBBLE PACKS] Future Scheduled Test RISK FOR H OSPITALIZATION; RN TO ASSESS/TEACH, HOME HEALTH ASSISTANT/CLOUD SUBJECT MATTER EXPERT TO OBSERVE/TEACH PATIENT/CAREGIVER ON RISK FOR HOSPITALIZATION/EMERGENCY ROOM VISITS, TEACH SIGNS AND SYMPTOMS THAT PUT PATIENT AT RISK, WHEN TO NOTIFY NURSE/PHYSICIAN OF COMPLICATIONS/DECLINE, AND WHEN TO CALL 911. [code = RISK FOR HOSPITALIZATION; RN TO ASSESS/TEACH, HOME HEALTH ASSISTANT/CLOUD SUBJECT MATTER EXPERT TO OBSERVE/TEACH PATIENT/CAREGIVER ON RISK FOR HOSPITALIZATION/EMERGENCY ROOM VISITS, TEACH SIGNS AND SYMPTOMS THAT PUT PATIENT AT RISK, WHEN TO NOTIFY NURSE/PHYSICIAN OF COMPLICATIONS/DECLINE, AND WHEN TO CALL 911.] Future Scheduled Test CARDIOVASC ULAR SYSTEM; RN TO ASSESS/TEACH, CLOUD SUBJECT MATTER EXPERT/HOME HEALTH ASSISTANT TO OBSERVE/TEACH RELATED TO ALTERED CARDIOVASCULAR STATUS TO MINIMIZE COMPLICATIONS AND REDUCE HOSPITALIZATION. [code = CARDIOVASCULAR SYSTEM; RN TO ASSESS/TEACH, CLOUD SUBJECT MATTER EXPERT/HOME HEALTH ASSISTANT TO OBSERVE/TEACH RELATED TO ALTERED CARDIOVASCULAR STATUS TO MINIMIZE COMPLICATIONS AND REDUCE HOSPITALIZATION.] Future Scheduled Test HYPERTENSI ON MANAGEMENT; RN TO ASSESS AND TEACH, CLOUD SUBJECT MATTER EXPERT/HOME HEALTH ASSISTANT TO OBSERVE AND TEACH WARNING SIGNS AND SYMPTOMS TO AVOID HOSPITALIZATION. [code = HYPERTENSION MANAGEMENT; RN TO ASSESS AND TEACH, CLOUD SUBJECT MATTER EXPERT/HOME HEALTH ASSISTANT TO OBSERVE AND TEACH WARNING SIGNS AND SYMPTOMS TO AVOID HOSPITALIZATION.] Future Scheduled Test ARRHYTHMIA MANAGEMENT; RN TO ASSESS AND TEACH, CLOUD SUBJECT MATTER EXPERT/HOME HEALTH ASSISTANT TO OBSERVE AND TEACH WARNING SIGNS AND SYMPTOMS TO AVOID HOSPITALIZATION. [code = ARRHYTHMIA MANAGEMENT; RN TO ASSESS AND TEACH, CLOUD SUBJECT MATTER EXPERT/HOME HEALTH ASSISTANT TO OBSERVE AND TEACH WARNING SIGNS AND SYMPTOMS TO AVOID HOSPITALIZATION.] Future Scheduled Test SKIN INTEG RITY RN TO ASSESS AND TEACH, CLOUD SUBJECT MATTER EXPERT/HOME HEALTH ASSISTANT TO OBSERVE AND TEACH INTEGUMENTARY STATUS TO IDENTIFY CHANGES AND INTERVENE TO MINIMIZE COMPLICATIONS. PROVIDE SKILLED TEACHING OF GENERAL WOUND AND SKIN CARE AND PREVENTION RELATED TO POTENTIAL FOR ALTERED SKIN INTEGRITY [code = SKIN INTEGRITY RN TO ASSESS AND TEACH, CLOUD SUBJECT MATTER EXPERT/HOME HEALTH ASSISTANT TO OBSERVE AND TEACH INTEGUMENTARY STATUS TO IDENTIFY CHANGES AND INTERVENE TO MINIMIZE COMPLICATIONS. PROVIDE SKILLED TEACHING OF GENERAL WOUND AND SKIN CARE AND PREVENTION RELATED TO POTENTIAL FOR ALTERED SKIN INTEGRITY ] Future Scheduled Test PAIN MANAG EMENT; RN TO ASSESS AND TEACH, HOME HEALTH ASSISTANT/CLOUD SUBJECT MATTER EXPERT TO OBSERVE AND TEACH AND PROVIDE EDUCATION ON PAIN MANAGEMENT TECHNIQUES. [code = PAIN MANAGEMENT; RN TO ASSESS AND TEACH, HOME HEALTH ASSISTANT/CLOUD SUBJECT MATTER EXPERT TO OBSERVE AND TEACH AND PROVIDE EDUCATION ON PAIN MANAGEMENT TECHNIQUES.] Future Scheduled Test FALL REDUC TION MANAGEMENT; RN TO ASSESS AND OBSERVE, CLOUD SUBJECT MATTER EXPERT/HOME HEALTH ASSISTANT TO OBSERVE FALL RISK FACTORS AND EDUCATE PATIENT/CAREGIVER ON STRATEGIES TO MINIMIZE THE RISK OF FALLING. [code = FALL REDUCTION MANAGEMENT; RN TO ASSESS AND OBSERVE, CLOUD SUBJECT MATTER EXPERT/HOME HEALTH ASSISTANT TO OBSERVE FALL RISK FACTORS AND EDUCATE PATIENT/CAREGIVER ON STRATEGIES TO MINIMIZE THE RISK OF FALLING.] Future Scheduled Test RESPIRATOR Y SYSTEM MANAGEMENT; RN TO ASSESS AND TEACH, CLOUD SUBJECT MATTER EXPERT/HOME HEALTH ASSISTANT TO OBSERVE AND TEACH RELATED TO ALTERED RESPIRATORY STATUS TO MINIMIZE COMPLICATIONS AND REDUCE HOSPITALIZATION. [code = RESPIRATORY SYSTEM MANAGEMENT; RN TO ASSESS AND TEACH, CLOUD SUBJECT MATTER EXPERT/HOME HEALTH ASSISTANT TO OBSERVE AND TEACH RELATED TO [...] Date/Time Encounter Type Admission Type Attending [facility] [place] Care Department Encounter ID Discharge Date Discharge Status Discharge Condition Discharge Reason Percent Goals Met 2024-03-22 00:00:00 2024-07-19 00:00:00 Outpatient [facility] DAGOBERTO NEIL [facility] [id number] 17.50
--- OUTSIDE RECORDS SUMMARY | 2024-07-15 17:02 | XMS_ITS | Encounter Summary ---
Author Organization [facility] Address [address] [place] [address] Care Team Providers Care Campus Interviews Intern Name Role Phone Ayo Carpio MD Primary Care Provider [phone] Annalee Jones MD Primary Care Provider Un available Yolande Nicholas DO Primary Care Pro vider Unavailable Anuj Priest DO Primary Care Provider Judy [facility], Pcp Primary Care Provider Unavailabl e Reason for Visit * Reason Onset Date Comments hospital follow up 10/14/2016 Encounter Details Date Type Department Care Team Description 10/14/2016 Telephone Adult Medicine [address] [id number] Ayo Carpio MD [address] [place] [address] [phone] hospital follow up Social History Tobacco Use [...] Pt to see 10/21 at 1:30 for [facility] [place] . * Telephone Encounter - Bertha Ernandez - 10/17/2016 1:41 PM EDT Pt returning call, pt has a bad phone, please call Patient today at this number [phone] * Telephone Encounter - Minerva Kan R.N. [...] appointment needed Hospital patient was treated at: [facility] Was this only an ER visit [...] filedocumented in this encounter Care Teams Campus Interviews Intern Relationship Specialty Start Date End Date Ayo Carpio MD [address] [place] [address] PCP - General Internal Medicine 07/19/16 01/05/17 Annalee Jones MD [address] [place] [address] PCP - General Internal Medicine 01/06/17 12/02/18 Yolande Nicholas DO [address] [place] [address] 8[address] PCP - General Internal Medicine 12/03/18 10/08/20 Anuj Priest DO [address] [place] [address] PCP - General Internal Medicine 10/09/20 06/16/21 [facility], Jose G [address] [place] [address] PCP - General Internal Medicine 06/17/21 documented as of this encounter
--- OUTSIDE RECORDS SUMMARY | 2024-07-15 17:02 | XMS_ITS | Encounter Summary ---
Author Organization [facility] [employer] [facility] Address [address] [place] [address] Care Team Providers Care Lens Edger Name Role Phone Ayo Carpio MD Primary Care Provider [phone] Annalee Jones MD Primary Care Provider Un available Yolande Nicholas DO Primary Care Pro vider Unavailable Anuj Priest DO Primary Care Provider Judy [facility], Pcp Primary Care Provider Unavailabl e Encounter Details Date Type Department Care Team Description 12/13/2016 Shot Dropper Report Medical Records [address] [place] [id number] Dhruv Garcia MD Social History Tobacco Use [...] on filedocumented in this encounter Care Teams Lens Edger Relationship Specialty Start Date End Date Ayo Carpio MD [address] [place] [address] PCP - General Internal Medicine 07/19/16 01/05/17 Annalee Jones MD [address] [place] [address] PCP - General Internal Medicine 01/06/17 12/02/18 Yolande Nicholas, DO [address] [place] [address] PCP - General Internal Medicine 12/03/18 10/08/20 Anuj Priest, [address] [place] [address] PCP - General Internal Medicine 10/09/20 06/16/21 [facility], [address] [address] PCP - General Internal Medicine 06/17/21 documented as of this encounter
--- OUTSIDE RECORDS SUMMARY | 2024-07-15 17:02 | XMS_ITS | Encounter Summary ---
Author Organization [employer] [facility] Address [address] [place] [address] Care Team Providers Care Manager Retail Sales Name Role Phone Coleman Mccarthy MD Primary Care Provider Unavaila ble Ayo Carpio MD Primary Care Provider Annalee Jones MD Primary Care Provider Un available Yolande Nicholas DO Primary Care Pro vider Unavailable Anuj Priest DO Primary Care Provider [facility], Pcp Primary Care Provider Unavailabl e Encounter Details Date Type Department Care Team Description 05/19/2015 Director Of Assessing Report Medical Records [address] [place] [address] Anuj Easton Social History Tobacco Use Types [...] filedocumented in this encounter Care Teams Manager Retail Sales Relationship Specialty Start Date End Date Coleman Mccarthy MD PCP - General Internal Medicine 05/07/14 07/18/16 Ayo Carpio MD [address] [place] [address] PCP - General Internal Medicine 07/19/16 01/05/17 Annalee Jones MD [address] [place] [address] PCP - General Internal Medicine 01/06/17 12/02/18 Yolande Nicholas, [address] [place] [address] PCP - General Internal Medicine 12/03/18 10/08/20 Anuj Priest DO [address] [place] [address] PCP - General Internal Medicine 10/09/20 06/16/21 [facility], Pcp [address] [place] [address] PCP - General Internal Medicine 06/17/21 documented as of this encounter
--- OUTSIDE RECORDS SUMMARY | 2024-07-15 17:02 | XMS_ITS | Encounter Summary ---
Author Organization [employer] Address [address] [facility] [address] [place] [address] Care Team Providers Care Cobol Developer Name Role Phone Sesar Pereyra MD Primary Care Provider [phone] Encounter Details Date Type Department Care Team (Late st Contact Info) Description 06/24/2024 Orders Only [facility] [address] [place] [address] Sesar Pereyra MD [address] [place] [address] Paroxysmal atrial fibrillation (CMS/HCC) (Primary Dx) Social [...] [facility] [address] [place] [address] Sesar Pereyra MD [address] [place] [address] documented as of this encounter Visit Diagnoses Diagnosis Paroxysmal atrial fibrillation (CMS/HCC)- Primary Atrial fibrillation documented in this encounter Additional Health Concerns Assessment Noted Time PHQ-9 Depression Total Score: 16 024 10:59 AM EDT documented as of this encounter Care Teams Cobol Developer Relationship Specialty Start Date End Date Sesar Pereyra MD [address] [place] [address] PCP - General Internal Medicine 03[facility]01[facility] documented as of this encounter
--- OUTSIDE RECORDS SUMMARY | 2024-07-15 17:02 | XMS_ITS | Encounter Summary ---
Author Organization [facility] Address [address] [place] [address] Care Team Providers Care Semi Automatic Sewing Machine Operator Name Role Phone Ayo Carpio MD Primary Care Provider [phone] Annalee Jones MD Primary Care Provider Un available Yolande Nicholas DO Primary Care Pro vider Unavailable Anuj Priest DO Primary Care Provider Judy [facility], Pcp Primary Care Provider Unavailabl e Encounter Details Date Type Department Care Team Description 08/05/2016 Release of Information Medical Records [address] [place] [id number] Abstract, Provider Social History Tobacco Use Types [...] on filedocumented in this encounter Care Teams Semi Automatic Sewing Machine Operator Relationship Specialty Start Date End Date Ayo Carpio MD [address] [place] [address] [phone] PCP - General Internal Medicine 07/19/16 01/05/17 Annalee Jones MD [address] [place] [address] PCP - General Internal Medicine 01/06/17 12/02/18 Yolande Nicholas, [address] [place] [address] PCP - General Internal Medicine 12/03/18 10/08/20 Anuj Priest DO [address] [place] [address] PCP - General Internal Medicine 10/09/20 06/16/21 [facility], Pcp [address] [place] [address] PCP - General Internal Medicine 06/17/21 documented as of this encounter
--- OUTSIDE RECORDS SUMMARY | 2024-07-15 17:02 | XMS_ITS | Encounter Summary ---
Author Organization [employer] Address [address] [facility] [address] [place] [address] Care Team Providers Care Legal Examiner Name Role Phone Sesar Pereyra MD Primary Care Provider [phone] Encounter Details Date Type Department Care Team (Late st Contact Info) Description 07/10/2024 Orders Only [facility] MED[facility]INE [address] [place] [address] Sesar Pereyra MD [address] [place] [address] Memory disturbance (Primary Dx) Social History Tobacco [...] [facility] [address] [place] [address] Sesar Pereyra MD [address] [place] [address] documented as of this encounter Visit Diagnoses Diagnosis Memory disturbance- Primary Memory loss documented in this encounter Additional Health Concerns Assessment Noted Time PHQ-9 Depression Total Score: 16 024 10:59 AM EDT documented as of this encounter Care Teams Legal Examiner Relationship Specialty Start Date End Date Sesar Pereyra MD [address] [place] [address] PCP - General Internal Medicine 03/01/21 [facility] 03/22/24 documented as of this encounter
--- OUTSIDE RECORDS SUMMARY | 2024-07-15 17:02 | XMS_ITS | Encounter Summary ---
Author Organization [facility] [employer] [facility] Address [address] [place] [address] Care Team Providers Care Body Shop Supervisor Name Role Phone Ayo Carpio MD Primary Care Provider [phone] Annalee Jones MD Primary Care Provider Un available Yolande Nicholas DO Primary Care Pro vider Unavailable Anuj Priest DO Primary Care Provider Judy [facility], Pcp Primary Care Provider Unavailabl e Encounter Details Date Type Department Care Team Description 10/06/2016 Bpm Architect Report Medical Records [address] [place] [address] Anuj Easton Social History Tobacco Use Types [...] filedocumented in this encounter Care Teams Body Shop Supervisor Relationship Specialty Start Date End Date Ayo Carpio MD [address] [place] [phone] PCP - General Internal Medicine 07/19/16 01/05/17 Annalee Jones MD [address] [place] [address] PCP - General Internal Medicine 01/06/17 12/02/18 Yolande Nicholas, [address] [place] [address] PCP - General Internal Medicine 12/03/18 10/08/20 Anuj Priest, [address] [place] [address] PCP - General Internal Medicine 10/09/20 06/16/21 [facility], Pcp [address] [place] [address] PCP - General Internal Medicine 06/17/21 documented as of this encounter
--- OUTSIDE RECORDS SUMMARY | 2024-07-15 17:02 | XMS_ITS | Encounter Summary ---
Author Organization [employer] Address [address] [facility] 7t [place] [address] Care Team Providers Care Conditioning Yard Supervisor Name Role Phone Sesar Pereyra MD Primary Care Provider [phone] Reason for Visit * Reason Onset Date Comments Medication Question 06/21/2024 Encounter Details Date Type Department Care Team ([facility] st Contact Info) Description 06/21/2024 Telephone [facility] [address] [place] [address] Sesar Pereyra MD [address] [place] [address] Medication Question Social History Tobacco Use Types [...] to Discontinue the medication. Contact Conrad at [phone] Ext [phone] The Voicemail is private so you are able to Leave a message in there. documented in this encounter Plan of Treatment Upcoming Encounters Date Type Department Care Team (Late st Contact Info) Description 09/11/2024 10:30 AM EDT Office Visit [facility] MED & PEDS [address] [place] [address] Sesar Pereyra MD [address] [place] [address] documented as of this encounter Visit Diagnoses Not on filedocumented in this encounter Additional Health Concerns Assessment Noted Time PHQ-9 Depression Total Score: 16 024 10:59 AM EDT documented as of this encounter Care Teams Conditioning Yard Supervisor Relationship Specialty Start Date End Date Sesar Pereyra MD [address] [place] [phone] PCP - General Internal Medicine 03/01/21 [facility] 03/22/24 documented as of this encounter
--- OUTSIDE RECORDS SUMMARY | 2024-07-15 17:02 | XMS_ITS | Encounter Summary ---
Author Organization [employer] Address [address] [facility] 7t [place] [address] Care Team Providers Care Salesforce Developer Name Role Phone Sesar Pereyra MD Primary Care Provider [phone] Encounter Details Date Type Department Care Team ([facility] st Contact Info) Description 04/01/2024 Orders Only [facility] MED [facility] PEDS [address] [place], [place] [phone] Sesar Pereyra MD [address] [place] [address] Essential hypertension (Primary Dx) Social History Tobacco [...] Upcoming Encounters Date Type Department Care Team ([facility] st Contact Info) Description 09/11/2024 10:30 AM EDT Office Visit [facility] MED & PEDS [address] [place] [address] Sesar Pereyra MD [address] [place] [address] documented as of this encounter Visit Diagnoses Diagnosis Essential hypertension- Primary Unspecified essential hypertension documented in this encounter Additional Health Concerns Assessment Noted Time PHQ-9 Depression Total Score: 16 024 10:59 AM EDT documented as of this encounter Care Teams Salesforce Developer Relationship Specialty Start Date End Date Sesar Pereyra MD [address] [place] [address] PCP - General Internal Medicine 03/01/21 [facility] 03/22/24 documented as of this encounter
--- OUTSIDE RECORDS SUMMARY | 2024-07-15 17:02 | XMS_ITS | Encounter Summary ---
Author Organization [employer] Address [address] [facility] 7t [place] [address] Care Team Providers Care Corrections Caseworker Name Role Phone Sesar Pereyra MD Primary Care Provider [phone] Encounter Details Date Type Department Care Team [...] [facility] MED & PEDS [address] [place], [place] [phone] Sesar Pereyra MD [address] [place] [address] documented as of this encounter Procedures Procedure [...] EST Narrative 06/24/2024 8:13 AM EST ? [facility] ?[address] ?[place] [address] ? Fluoroscopy Report ? Signed ? Patient: Tho,Alex ?MR#: [id number] ?? [id number] ? : 1945 ?Acct:[id number] ? Age/Sex: 79 / M ?ADM Date: 06/19/24 ? Loc: HO.S3 ?363-2 ? Attending Dr: Tania Bernabe CAN MAKER ? Ordering Physician: Royce Kothari MD ?? Date of Service: 06/21/24 ?? Procedure(s): FL guidance in OR ?? Accession Number(s): [id number] ? cc: Sesar Pereyra MD; Royce Kothari [...] DD/ 1750 ? TD/TT: 06/21/24 1750 ? Occupational Therapy Specialist: ? Procedure Note Hernandez, Alonzo - 06/24/[address] [address] Fluoroscopy Report Signed Patient: Ronald Nettles#: [id number] : 7Acct:[id number] Age/Sex: 79 / MADM Date: 06/19/24 Loc: HO.S3 363-[address]: Tania Bernabe CAN MAKER Ordering Physician: Royce Kothari MD Date of Service: 06/21/24 Procedure(s): FL guidance in OR Accession Number(s): [id number] cc: Sesar Pereyra MD; Royce Kothari MD [...] 06/24/24 0810 DD/ 1750 TD/TT: 06/21/24 1750 Occupational Therapy Specialist: [facility] External Provider IMG IR PROCEDURES Final Result * CT Humerus (06/19/2024 8:00 PM EST) Anatomical Region Laterality Modality Computed Tomogra phy 06/19/2024 8:00 PM EST Narrative 06/19/2024 8:02 PM EST ? [facility] ?[address] ?[place] [address] ? CT Scan Report ? Signed ? Patient: Tho,Alex ?MR#: [id number] ?? [id number] ? : 1945 ?Acct:[id number] ? Age/Sex: 79 / M ?ADM Date: 02/19/25 ? Loc: HO.ED ? Attending Dr: ? Ordering Physician: Angela Moura MD ?? Date of Service: 06/19/24 ?? Procedure(s): CT humerus LT wo IV con ?? Accession Number(s): [id number] ? cc: Sesar Pereyra MD; Angela Moura MD ? Report Number: ?? [id number]: Total DLP = ??192.00 mGy-cm ? CLINICAL [...] of the dorsal margin of the glenoid. Fpkuroes-iu-zvebj ?? 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 ?? 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 ?? Please refer to separate report for x-rays of the partially included elbow. ?? Mild imaged rib deformities in the xbcgr-xv-zebj appear old/chronic. ? Impression: ?? 1. Anterior [...] ? DD/ 99 ? TD/TT: 06/19/241999 ? Occupational Therapy Specialist: ? Procedure Note Alonzo Ng - 06/20/[address] [address] [address] Scan Report Signed Patient: Ronald Nettles#: [id number] : 7Acct:[id number] Age/Sex: 79 / MADM Date: 06/19/24 Loc: HO.ED Attending Dr: Ordering Physician: Angela Moura MD Date of Service: 06/19/24 Procedure(s): CT humerus LT wo IV con Accession Number(s): [id number] cc: Sesar Pereyra MD; Angela Moura MD Report Number: [id number]: Total DLP = 192.00 mGy-cm CLINICAL HISTORY: [...] of the dorsal margin of the glenoid. Ehicbelv-fx-lgxno effusion with lipohemarthrosis of the left glenohumeral joint. 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 Please refer to separate report for x-rays of the partially includedelbow. Mild imaged rib deformities in the tdsab-vs-togs appear old/chronic. Impression: 1. Anterior dislocation of [...] in OV> 06/19/242001 DD/ 99 TD/TT: 06/19/241999 Occupational Therapy Specialist: [facility] External Provider IMG CT PROCEDURES Final Result * (ABNORMAL) Prothrombin Time-INR (06/19/2024 7:57 PM EST) Prothrombin Time 16.0(H) 10.9 - 12.4 SEC [facility] INTERNATIONAL NORM RATIO 1.4(H) 0.9 - 1.1 [facility] Comment:INTERNATIONAL NORMAL IZED RATIO (INR) [...] ORDERAB LES Final Result Performing Organization Address City/State/[facility] Co de Phone Number [facility] [address] [place] [phone] * (ABNORMAL) CBC auto differential (06/19/2024 7:57 PM EST) White Blood Count 11.9(H) 4.8 - 10.8 X10*3/uL [facility] Red Blood Count 4.64 4.60 - 5.80 X10*6/uL [facility] Hemoglobin 14.3 14.0 - 18.0 g/dl [facility] Hematocrit 42.9 42.0 - 52.0 % [facility] Mean Corpuscular Volume 92.5 80.0 - 98.0 fL [facility] Mean Corpuscular Hemoglobin 30.8 27.0 - 33.0 pg [facility] Mean Corpuscular HGB Conc 33.3 31.0 - 36.0 g/dl [facility] Red Cell Distribution Width 14.4 11.0 - 16.0 % [facility] Platelet Count 238 160 - 400 X10*3/uL [facility] Mean Platelet Volume 9.9 9.4 - 12.4 fL [facility] Neutrophils Percent Auto 83.9(H) 45 - 73 % [facility] Imm Gran Pct Auto 0.3 0.0 - 0.4 % [facility] Lymphocytes Percent Auto 7.1(L) 20 - 40 % [facility] Monocytes Percent Auto 8.1 2 - 11 % [facility] Eosinophils Percent Auto 0.2 0 - 4 % [facility] Basophils Percent Auto 0.4 0 - 2 % [facility] NRBC Pct Auto 0.0 0.0 - 0.2 /100WBC [facility] Neutrophils Absolute Auto 10.0(H) 2.0 - 8.3 x10*3/uL [facility] Imm Gran Abs Auto 0.04(H) 0.00 - 0.03 X10*3/uL [facility] Lymphocytes Absolute Auto 0.9(L) 1.2 - 4.9 X10*3/uL [facility] Monocytes Absolute Auto 1.0 0.1 - 1.2 X10*3/uL [facility] Eosinophils Absolute Auto 0.0 0.0 - 0.4 X10*3/uL [facility] Basophils Absolute Auto 0.1 0.0 - 0.2 X10*3/uL [facility] NRBC Abs Auto 0.000 0.0 - 0.012 X10*3/uL [facility] 06/19/2024 7:57 PM EST 06/19/2024 8:05 PM EST us Generic External Data Provider LAB BLOOD ORDERAB LES Edited Result - Final Performing Organization Address City/State/[facility] Co de Phone Number [facility] [address] [place] [phone] * XR Elbow 3+ Views Left (06/19/2024 7:16 PM EST) Anatomical Region Laterality Modality Upper Extremities, Elbow Left Radiogr aphic Imaging 06/19/2024 7:16 PM EST Narrative 06/19/2024 7:18 PM EST ? [facility] ?[address] ?[place] [address] ?XRay Report ? Signed ? Patient: Prawlucki,Alex ?MR#: [id number] ?? [id number] ? : 1945 ?Acct:[id number] ? Age/Sex: 79 / M ?ADM Date: 02/19/25 ? Loc: HO.ED ? Attending Dr: ? Ordering Physician: Angela Moura MD ?? Date of Service: 06/19/24 ?? Procedure(s): XR elbow LT min 3V ?? Accession Number(s): [id number] ? cc: Sesar Pereyra MD; Angela Moura [...] ? DD/ 15 ? TD/TT: 06/19/241915 ? Occupational Therapy Specialist: ? Procedure Note Doncathieter, Image - 06/19/[address] [address] XRay Report Signed Patient: Ronald Nettles#: [id number] : 1945cct:[id number] Age/Sex: 79 / MADM Date: 06/19/24 Loc: HO.ED Attending Dr: Ordering Physician: Anegla Moura MD Date of Service: 06/19/24 Procedure(s): XR elbow LT min 3V Accession Number(s): [id number] cc: Sesar Pereyra MD; Angela Moura MD [...] in OV> 06/19/241916 DD/ 15 TD/TT: 06/19/241915 Occupational Therapy Specialist: [facility] External Provider IMG XR PROCEDURES Final Result * CT Head w/o Contrast (06/19/2024 7:12 PM EST) Anatomical Region Laterality Modality Head, Neck Computed Tomogra phy 06/19/2024 7:12 PM EST Narrative 06/19/2024 7:14 PM EST ? [facility] ?[address] ?[place] [address] ? CT Scan Report ? Signed ? Patient: Tho,Alex ?MR#: [id number] ?? [id number] ? : 1945 ?Acct:[id number] ? Age/Sex: 79 / M ?ADM Date: 06/19/24 ? Loc: HO.ED ? Attending Dr: ? Ordering Physician: Lonny Delgado ?? Date of Service: 06/19/24 ?? Procedure(s): CT head/brain wo IV con ?? Accession Number(s): [id number] ? cc: Sesar Pereyra MD; Lonny Delgado ? Report Number: ?? [id number]: Total DLP = ??652.00 mGy-cm ? CLINICAL [...] ? DD/ 11 ? TD/TT: 06/19/241911 ? Occupational Therapy Specialist: ? Procedure Note Donotuseinterpreter, Image - 06/19/[address] [place] [address] [address] Scan Report Signed Patient: Ronald Nettles#: [id number] : 1945cct:[id number] Age/Sex: 79 / MADM Date: 06/19/24 Loc: HO.ED Attending Dr: Ordering Physician: Lonny Delgado Date of Service: 06/19/24 Procedure(s): CT head/brain wo IV con Accession Number(s): [id number] cc: Sesar Pereyra MD; Lonny Delgado Report Number: [id number]: Total DLP = 652.00 mGy-cm CLINICAL HISTORY: [...] in OV> 06/19/241912 DD/ 11 TD/TT: 06/19/241911 Occupational Therapy Specialist: [facility] External Provider IMG CT PROCEDURES Final Result * Lipase (06/19/2024 6:17 PM EST) Lipase 17 8 - 78 U/L [facility] 06/19/2024 6:17 PM EST 06/19/2024 6:19 PM EST Generic External Data Provider LAB BLOOD ORDERAB LES Final Result Performing Organization Address City/State/[facility] Co de Phone Number [facility] [address] [place] [phone] * (ABNORMAL) Comprehensive Metabolic Panel (06/19/2024 6:17 PM EST) Sodium 142 135 - 145 mmol/L [facility] Potassium 3.8 3.3 - 5.1 mmol/L [facility] Comment:Slight Hemolysis.Int erpret result with caution. Chloride 109(H) 96 - 108 mmol/L [facility] Carbon Dioxide 23 22 - 29 mmol/L [facility] Anion Gap 14 12 - 20 [facility] Urea Nitrogen (BUN) 13 9 - 16 mg/dL [facility] Creatinine, Serum 1.11 0.5 - 1.4 mg/dL [facility] Creatinine Clr Calc Pharmacy 72.1 [facility] Comment:eGFR (calculated fro m the MDRD study equation) and eCrCl(calculated from the Cockcroft-Gault equation) are based ondifferent parameters and may not yield comparable results.If eCrCl result is absurd, please check patient'sheight/weight. Estimated Glomerular Filt Rate >60 [facility] Comment:Chronic Kidney Disea se: Estimated GFR < 60 mL/min/1.65h4Wcwhpg Kidney Disease: Estimated GFR < 15 mL/min/1.73m2 Glucose 92 60 - 115 mg/dL [facility] Calcium 9.1 8.4 - 10.2 mg/dL [facility] Bilirubin, Total 0.5 0.0 - 1.0 mg/dL [facility] Aspartate Amino Transferase 27 5 - 37 U/L [facility] Comment:Slight Hemolysis.Int erpret result with caution. Alanine Aminotransferase 14 0 - 40 U/L [facility] Total Protein 7.7 6.5 - 8.0 g/dL [facility] Albumin Level 4.1 3.5 - 5.0 g/dL [facility] Alkaline Phosphatase 119(H) 39 - 117 U/L [facility] 06/19/2024 6:17 PM EST 06/19/2024 6:19 PM EST us Generic External Data Provider LAB BLOOD ORDERAB LES Final Result [facility] [address] [place] [phone] documented in this encounter Visit Diagnoses Not on filedocumented in this encounter Additional Health Concerns Assessment Noted Time PHQ-9 Depression Total Score: 16 07/18/2 024 10:59 AM EDT documented as of this encounter Care Teams Corrections Caseworker Relationship Specialty Start Date End Date Sesar Pereyra MD [address] [place] [phone] PCP - General Internal Medicine 03/01/21 [facility] 03/22/24 documented as of this encounter
--- OUTSIDE RECORDS SUMMARY | 2024-07-15 17:02 | XMS_ITS | Clinical Summary ---
Author Organization Unknown Care Team Providers Care Peanut Picker Name Role Phone MARCO RAMIREZ, POOJA Unavailable Unavailabl e BARBARA PT, COURTNEY Unavailable Unavailable SHERYL FAMILY PRACTICE PHYSICIAN ASSISTANT, JANETT Unavailable Unavailable LESLYE RN, DAGOBERTO Unavailable Unavailab abraham [employer]ION CHE[employer] PRODUCTION SUPERVISOR, ANTONIO Unavailable Unavailable READING OT, JOANIE Unavailable Unavailable CHANEY FILM OR VIDEOTAPE EDITOR, TIA Unavailable Unavailable Payers Payer Name Policy Type Policy Number Effective Date Expira tion Date 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 2023-05 [...] 2023-05 00:00: 00 05-16 23:59 :00 No [id number] PAIN 15 mg EVERY 6 HOURS NEEDED 15 mg EVERY 6 HOURS NEEDED (route: oral) Med Classific ation: Analgesic , Anti-infl ammatory or Antipyret ic clonazepam 0.5 mg tablet 2023-05 00:00: 00 Yes [id number] ANXIETY 0.5 mg 2 TIMES DAILY 0.5 mg 2 TIMES DAILY (route: oral) Med Classific ation: Central Nervous System Agents lisinopril 40 mg tablet 2023-05 00:00: 00 03-21 23:59 :00 No [id number] CAD 40 mg DAILY 40 mg DAILY (route: oral) Med Classific ation: Cardiovas cular Therapy Agents atorvastati n 80 mg tablet 2023-05 00:00: 00 Yes [id number] HYPERTENSIO N 80 mg DAILY 80 mg DAILY (route: oral) Med Classific ation: Cardiovas cular Therapy Agents cilostazol 50 mg tablet 2023-05 00:00: 00 Yes [id number] HYPERTENSIO N 50 mg 2 TIMES DAILY 50 mg 2 TIMES DAILY (route: oral) Med Classific ation: Hematolog ical Agents clopidogrel 75 mg tablet 2023-05 00:00: 00 03-21 23:59 :00 No [id number] CORONARY ARTERY DISEASE 75 mg DAILY 75 mg DAILY (route: oral) Med Classific ation: Hematolog ical Agents Eliquis 5 mg tablet 2023-05 00:00: 00 Yes [id number] ANTI ARRHYTHMIC 5 mg 2 TIMES DAILY 5 mg 2 TIMES DAILY (route: oral) Med Classific ation: Hematolog ical Agents furosemide 40 mg tablet 2023-05 00:00: 00 03-21 23:59 :00 No [id number] BPH 40 mg DAILY 40 mg DAILY (route: oral) Alternate Route: INTRA-MUS CULAR. Med Classific ation: Cardiovas cular Therapy Agents metoprolol tartrate 50 mg tablet 2023-05 00:00: 00 03-22 23:59 :00 No [id number] CAD 50 mg DAILY 50 mg DAILY (route: oral) Med Classific ation: Cardiovas cular Therapy Agents quetiapine 25 mg tablet 2023-05 00:00: 00 Yes [id number] MOOD STABILIZER 25 mg 2 TIMES DAILY 25 mg 2 TIMES DAILY (route: oral) Med Classific ation: Central Nervous System Agents sertraline 50 mg tablet 2023-05 00:00: 00 Yes [id number] MOOD STABILIZER 50 mg DAILY 50 mg DAILY (route: oral) Med Classific ation: Central Nervous System Agents tamsulosin 0.4 mg capsule 2023-05 00:00: 00 Yes [id number] BPH 0.4 mg DAILY 0.4 mg DAILY (route: oral) Med Classific ation: Genitouri nary Therapy docusate sodium 100 mg tablet 2023-05 00:00: 00 Yes [id number] CONSTIPATIO N 100 mg DAILY 100 mg DAILY (route: oral) Med Classific ation: Gastroint estinal Therapy Agents gabapentin 100 mg capsule 2023-05 00:00: 00 Yes [id number] PAIN 1-3 capsule BEDTIME 1-3 capsule BEDTIME (route: oral) Med Classific ation: Central Nervous System Agents metoprolol tartrate 25 mg tablet 2023-05 00:00: 00 03-27 16:09 :43.1 53 No [id number] HYPERTENSIO N 25 mg 2 TIMES DAILY 25 mg 2 TIMES DAILY (route: oral) Med Classific ation: Cardiovas cular Therapy Agents Multaq 400 mg tablet 2023-05 00:00: 00 Yes [id number] ANTIARRHYTH MICHAEL 400 mg 2 TIMES DAILY 400 mg 2 TIMES DAILY (route: oral) Med Classific ation: Cardiovas cular Therapy Agents furosemide 40 mg tablet 2023-05 00:00: 00 Yes [id number] edema 1 tablet DAILY 1 tablet DAILY (route: oral) Med Classific ation: Cardiovas cular Therapy Agents dextroamphe tamine-amph etamine 7.5 mg tablet 2023-05 00:00: 00 Yes [id number] attention 1 tablet DAILY 1 tablet DAILY (route: oral) Med Classific ation: Central Nervous System Agents metoprolol tartrate 25 mg tablet 2023-05 00:00: 00 06-27 23:59 :00 No [id number] heart rate 0.5 tablet 2 TIMES DAILY 0.5 tablet 2 TIMES DAILY (route: oral) Med Classific ation: Cardiovas cular Therapy Agents cephalexin 500 mg capsule 2023-05 00:00: 00 04-10 23:59 :00 No [id number] CELLULITIS LLL 500 mg 4 TIMES DAILY 500 mg 4 TIMES DAILY (route: oral) Med Classific ation: Anti-Infe ctive Agents hydralazine 25 mg tablet 2023-05 00:00: 00 Yes [id number] HTN 25 mg 2 TIMES DAILY 25 mg 2 TIMES DAILY (route: oral) Med Classific ation: Cardiovas cular Therapy Agents melatonin 3 mg tablet 06-27 00:00: 00 Yes [id number] INSOMNIA 1 tablet BEDTIME 1 tablet BEDTIME (route: oral) Med Classific ation: Central Nervous System Agents metoprolol tartrate 25 mg tablet 06-27 00:00: 00 Yes [id number] HTN 1 tablet DAILY 1 tablet DAILY (route: oral) Med Classific ation: Cardiovas cular Therapy Agents oxycodone 5 mg tablet 06-27 00:00: 00 Yes [id number] PAIN 1 tablet EVERY 8 HOURS 1 tablet EVERY 8 HOURS (route: oral) Med Classific ation: Analgesic , Anti-infl ammatory or Antipyret ic polyethylen e glycol 3350 17 gram/dose oral powder 06-27 00:00: 00 Yes [id number] CONSTIPATIO N 17 gram BEDTIME 17 gram BEDTIME (route: oral) Med Classific ation: Gastroint estinal Therapy Agents Tylenol 8 Hour 650 mg tablet,exte nded release 06-27 00:00: 00 Yes [id number] PAIN/FEVER 1 tablet EVERY 6 HOURS 1 [...] CONSULTING PHYSICIANS. RN TO OBSERVE AND ASSESS, FILM OR VIDEOTAPE EDITOR/BREAKDOWN WORKER TO OBSERVE FOR RISK FOR FALLS AND INSTRUCT IN FALL PREVENTION, HOME SAFETY, MEDICATION MANAGEMENT, INFECTION PREVENTION, AND NUTRITION MANAGEMENT. RN/FILM OR VIDEOTAPE EDITOR/BREAKDOWN WORKER NURSE MAY PERFORM O2 SATURATION LEVEL ON ADMISSION AND PRN FOR RN TO ASSESS/FILM OR VIDEOTAPE EDITOR TO OBSERVE PATIENT, WITH NOTIFICATION TO THE PHYSICIAN IF SATURATION IS 90% IN THE ABSENCE OF MORE SPECIFIC PARAMETERS FROM THE PHYSICIAN. AGENCY MAY PERFORM A RESUMPTION OF CARE VISIT FOLLOWING ANY HOSPITAL ADMISSION. RN/FILM OR VIDEOTAPE EDITOR/BREAKDOWN WORKER TO MONITOR CO-MORBID CONDITIONS LISTED ON THE PLAN OF CARE AND ANY NEW CONDITIONS THAT PRESENT THEMSELVES DURING THIS EPISODE TO IDENTIFY CHANGES AND INTERVENE TO MINIMIZE COMPLICATIONS. [code = RN TO OBSERVE, ASSESS, EVALUATE, AND DEVELOP AN INDIVIDUALIZED PLAN OF CARE. AGENCY MAY ACCEPT ORDERS FROM CONSULTING PHYSICIANS. RN TO OBSERVE AND ASSESS, FILM OR VIDEOTAPE EDITOR/BREAKDOWN WORKER TO OBSERVE FOR RISK FOR FALLS AND INSTRUCT IN FALL PREVENTION, HOME SAFETY, MEDICATION MANAGEMENT, INFECTION PREVENTION, AND NUTRITION MANAGEMENT. RN/FILM OR VIDEOTAPE EDITOR/BREAKDOWN WORKER NURSE MAY PERFORM O2 SATURATION LEVEL ON ADMISSION AND PRN FOR RN TO ASSESS/FILM OR VIDEOTAPE EDITOR TO OBSERVE PATIENT, WITH NOTIFICATION TO THE PHYSICIAN IF SATURATION IS 90% IN THE ABSENCE OF MORE SPECIFIC PARAMETERS FROM THE PHYSICIAN. AGENCY MAY PERFORM A RESUMPTION OF CARE VISIT FOLLOWING ANY HOSPITAL ADMISSION. RN/FILM OR VIDEOTAPE EDITOR/BREAKDOWN WORKER TO MONITOR CO-MORBID CONDITIONS LISTED ON THE PLAN OF CARE AND ANY NEW CONDITIONS THAT PRESENT THEMSELVES DURING THIS EPISODE TO IDENTIFY CHANGES AND INTERVENE TO MINIMIZE COMPLICATIONS.] Future Scheduled Test MEDICATION MANAGEMENT; RN/FILM OR VIDEOTAPE EDITOR/BREAKDOWN WORKER TO REVIEW MEDICATIONS FOR INTERACTIONS, EFFECTIVENESS OF DRUG THERAPY, AND SIGNS/SYMPTOMS OF ADVERSE REACTIONS. MAY INSTRUCT AND REINFORCE MEDICATION TEACHING RELATED TO THE USE OF MEDICATIONS, DOSAGE, FREQUENCY, PURPOSE, SIDE EFFECTS, AND TO REPORT COMPLICATIONS. HELP SET UP BUBBLE PACKS [code = MEDICATION MANAGEMENT; RN/FILM OR VIDEOTAPE EDITOR/BREAKDOWN WORKER TO REVIEW MEDICATIONS FOR INTERACTIONS, EFFECTIVENESS OF DRUG THERAPY, AND SIGNS/SYMPTOMS OF ADVERSE REACTIONS. MAY INSTRUCT AND REINFORCE MEDICATION TEACHING RELATED TO THE USE OF MEDICATIONS, DOSAGE, FREQUENCY, PURPOSE, SIDE EFFECTS, AND TO REPORT COMPLICATIONS. HELP SET UP BUBBLE PACKS] Future Scheduled Test RISK FOR H OSPITALIZATION; RN TO ASSESS/TEACH, BREAKDOWN WORKER/FILM OR VIDEOTAPE EDITOR TO OBSERVE/TEACH PATIENT/CAREGIVER ON RISK FOR HOSPITALIZATION/EMERGENCY ROOM VISITS, TEACH SIGNS AND SYMPTOMS THAT PUT PATIENT AT RISK, WHEN TO NOTIFY NURSE/PHYSICIAN OF COMPLICATIONS/DECLINE, AND WHEN TO CALL 911. [code = RISK FOR HOSPITALIZATION; RN TO ASSESS/TEACH, BREAKDOWN WORKER/FILM OR VIDEOTAPE EDITOR TO OBSERVE/TEACH PATIENT/CAREGIVER ON RISK FOR HOSPITALIZATION/EMERGENCY ROOM VISITS, TEACH SIGNS AND SYMPTOMS THAT PUT PATIENT AT RISK, WHEN TO NOTIFY NURSE/PHYSICIAN OF COMPLICATIONS/DECLINE, AND WHEN TO CALL 911.] Future Scheduled Test CARDIOVASC ULAR SYSTEM; RN TO ASSESS/TEACH, FILM OR VIDEOTAPE EDITOR/BREAKDOWN WORKER TO OBSERVE/TEACH RELATED TO ALTERED CARDIOVASCULAR STATUS TO MINIMIZE COMPLICATIONS AND REDUCE HOSPITALIZATION. [code = CARDIOVASCULAR SYSTEM; RN TO ASSESS/TEACH, FILM OR VIDEOTAPE EDITOR/BREAKDOWN WORKER TO OBSERVE/TEACH RELATED TO ALTERED CARDIOVASCULAR STATUS TO MINIMIZE COMPLICATIONS AND REDUCE HOSPITALIZATION.] Future Scheduled Test HYPERTENSI ON MANAGEMENT; RN TO ASSESS AND TEACH, FILM OR VIDEOTAPE EDITOR/BREAKDOWN WORKER TO OBSERVE AND TEACH WARNING SIGNS AND SYMPTOMS TO AVOID HOSPITALIZATION. [code = HYPERTENSION MANAGEMENT; RN TO ASSESS AND TEACH, FILM OR VIDEOTAPE EDITOR/BREAKDOWN WORKER TO OBSERVE AND TEACH WARNING SIGNS AND SYMPTOMS TO AVOID HOSPITALIZATION.] Future Scheduled Test ARRHYTHMIA MANAGEMENT; RN TO ASSESS AND TEACH, FILM OR VIDEOTAPE EDITOR/BREAKDOWN WORKER TO OBSERVE AND TEACH WARNING SIGNS AND SYMPTOMS TO AVOID HOSPITALIZATION. [code = ARRHYTHMIA MANAGEMENT; RN TO ASSESS AND TEACH, FILM OR VIDEOTAPE EDITOR/BREAKDOWN WORKER TO OBSERVE AND TEACH WARNING SIGNS AND SYMPTOMS TO AVOID HOSPITALIZATION.] Future Scheduled Test SKIN INTEG RITY RN TO ASSESS AND TEACH, FILM OR VIDEOTAPE EDITOR/BREAKDOWN WORKER TO OBSERVE AND TEACH INTEGUMENTARY STATUS TO IDENTIFY CHANGES AND INTERVENE TO MINIMIZE COMPLICATIONS. PROVIDE SKILLED TEACHING OF GENERAL WOUND AND SKIN CARE AND PREVENTION RELATED TO POTENTIAL FOR ALTERED SKIN INTEGRITY [code = SKIN INTEGRITY RN TO ASSESS AND TEACH, FILM OR VIDEOTAPE EDITOR/BREAKDOWN WORKER TO OBSERVE AND TEACH INTEGUMENTARY STATUS TO IDENTIFY CHANGES AND INTERVENE TO MINIMIZE COMPLICATIONS. PROVIDE SKILLED TEACHING OF GENERAL WOUND AND SKIN CARE AND PREVENTION RELATED TO POTENTIAL FOR ALTERED SKIN INTEGRITY ] Future Scheduled Test PAIN MANAG EMENT; RN TO ASSESS AND TEACH, BREAKDOWN WORKER/FILM OR VIDEOTAPE EDITOR TO OBSERVE AND TEACH AND PROVIDE EDUCATION ON PAIN MANAGEMENT TECHNIQUES. [code = PAIN MANAGEMENT; RN TO ASSESS AND TEACH, BREAKDOWN WORKER/FILM OR VIDEOTAPE EDITOR TO OBSERVE AND TEACH AND PROVIDE EDUCATION ON PAIN MANAGEMENT TECHNIQUES.] Future Scheduled Test FALL REDUC TION MANAGEMENT; RN TO ASSESS AND OBSERVE, FILM OR VIDEOTAPE EDITOR/BREAKDOWN WORKER TO OBSERVE FALL RISK FACTORS AND EDUCATE PATIENT/CAREGIVER ON STRATEGIES TO MINIMIZE THE RISK OF FALLING. [code = FALL REDUCTION MANAGEMENT; RN TO ASSESS AND OBSERVE, FILM OR VIDEOTAPE EDITOR/BREAKDOWN WORKER TO OBSERVE FALL RISK FACTORS AND EDUCATE PATIENT/CAREGIVER ON STRATEGIES TO MINIMIZE THE RISK OF FALLING.] Future Scheduled Test RESPIRATOR Y SYSTEM MANAGEMENT; RN TO ASSESS AND TEACH, FILM OR VIDEOTAPE EDITOR/BREAKDOWN WORKER TO OBSERVE AND TEACH RELATED TO ALTERED RESPIRATORY STATUS TO MINIMIZE COMPLICATIONS AND REDUCE HOSPITALIZATION. [code = RESPIRATORY SYSTEM MANAGEMENT; RN TO ASSESS AND TEACH, FILM OR VIDEOTAPE EDITOR/BREAKDOWN WORKER TO OBSERVE AND TEACH RELATED TO ALTERED [...] Goals Met 2024-03-22 00:00:00 2024-07-19 00:00:00 Outpatient [facility] DAGOBERTO NEIL [facility] [id number] 17.50
--- OUTSIDE RECORDS SUMMARY | 2024-07-15 17:02 | XMS_ITS | Encounter Summary ---
Author Organization [employer] [facility] Address [address] [place] [address] Care Team Providers Care Road Builder Name Role Phone Ayo Carpio MD Primary Care Provider [phone] Annalee Jones MD Primary Care Provider Un available Yolande Nicholas DO Primary Care Pro vider Unavailable Anuj Priest DO Primary Care Provider Judy [facility], Pcp Primary Care Provider Unavailabl e Encounter Details Date Type Department Care Team Description 11/28/2016 [facility]AN Medical Records [address] [place] [id number] Abstract, Provider Social History Tobacco Use Types [...] on filedocumented in this encounter Care Teams Road Builder Relationship Specialty Start Date End Date Ayo Carpio MD [address] [place] [address] [phone] PCP - General Internal Medicine 07/19/16 01/05/17 Annalee Jones MD [address] [place] [address] [phone] PCP - General Internal Medicine 01/06/17 12/02/18 Yolande Nicholas, [address] [place] [address] [id number] PCP - General Internal Medicine 12/03/18 10/08/20 Anuj Priest DO [address] [place] [address] [id number] PCP - General Internal Medicine 10/09/20 06/16/21 Pending Sale To [facility], Pcp [address] [place], [place] [id number] PCP - General Internal Medicine 06/17/21 documented as of this encounter
--- OUTSIDE RECORDS SUMMARY | 2024-07-15 17:02 | XMS_ITS | Encounter Summary ---
Author Organization [employer] Address [address] [facility] [address] [place] [address] Care Team Providers Care Sales Trainee Name Role Phone Sesar Pereyra MD Primary Care Provider [phone] Reason for Visit * Reason Onset Date Comments NTTS OUTREACT CALL 07/09/2024 Encounter Details Date Type Department Care Team ([facility] st Contact Info) Description 07/09/2024 Telephone [facility] [address] [place] [address] Gracie Jewell RN NTTS OUTREACT CALL Social [...] 10:30 AM EDT Office Visit [facility] [address] [place] [address] Sesar Pereyra MD [address] [place] [address] documented as of this encounter Visit Diagnoses Not on filedocumented in this encounter Additional Health Concerns Assessment Noted Time PHQ-9 Depression Total Score: 16 024 10:59 AM EDT documented as of this encounter Care Teams Sales Trainee Relationship Specialty Start Date End Date Sesar Pereyra MD [address] [place] [id number] PCP - General Internal Medicine 03/01/21 [facility] 03/22/24 documented as of this encounter
--- OUTSIDE RECORDS SUMMARY | 2024-07-15 17:02 | XMS_ITS | Clinical Summary ---
Author Organization [employer] Address [address] [facility] 7t [place] [address] Care Team Providers Care Mechanical Car Checker Name Role Phone Sesar Pereyra MD [...] considered Sleep disorder 02/02/2015 Overview (01/22/2024): Saw [facility] and sleep on 01/15/2015: Dr. Johnson Likely DILLAN sleep study ordered. Given that he has RLS, He may have periodic limb movement disorder which can be checked for in the study. Check ferritin. Will await sleep study. Depression with anxiety 04/01/2014 Overview (06/16/2022): Dr. Pradhan at [facility]. Is going [...] this doctor once a year at [facility]. Follows up with this facility every 6 months. 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 07/14/2005 Overview (01/22/2024): Stent on right and fem- fem bypass on left IMO update Depressive disorder 07/14/2005 Alcohol abuse, in remission 06/19/2005 Encounters Date Type Department Care Team Description 07/11/2024 Orders Only GENERIC EXTERNAL DATA DEPARTMENT Provider, Generic External Data 07/10/2024 Orders Only [facility] [address] [place] [address] Seasr Pereyra MD Memory disturbance (Primary Dx) 07/10/2024 Telephone [facility] [address] [place] [address] Sesar Pereyra MD 07/09/2024 Telephone [facility] [address] [place] [address] Gracie Jewell, CLAUDIA NTTS OUTREACT CALL 07/04/2024 Refill [facility] [address] [place] [address] Sesar Pereyra MD 06/24/2024 Orders Only [facility] [address] [place] [address] Sesar Pereyra MD Paroxysmal atrial fibrillation (CMS/HCC) (Primary Dx) 06/21/2024 Telephone [facility] [address] [place] [address] Sesar Pereyra MD Medication Question 06/19/2024 Orders Only GENERIC EXTERNAL DATA DEPARTMENT Provider, Generic External Data 06/13/2024 1:00 PM EST Office Visit [facility] [address] [place] [address] Sesar Pereyra MD Kidney stone (Primary Dx); Primary hypertension; Low back pain at multiple sites; Tinnitus of right ear; Lower urinary tract symptoms 06/13/2024 Travel 06/12/2024 Orders Only GENERIC EXTERNAL DATA DEPARTMENT Provider, Generic External Data 05/30/[address] [address] Sesar Peeryra MD Lab Orders; Referral 05/30/[address] [address] Sesar Pereyra MD 05/28/[address] [address] Sesar Pereyra MD fyi 05/27/2024 Refill [facility] [address] [place] [address] Sesar Pereyra MD 05/23/[address] [address] Sesar Pereyra MD Medication Question 05/15/2024 Telephone [facility] [address] [place] [address] Sesar Pereyra MD 05/09/2024 Telephone [facility] [address] [place] [address] Verona Thompson RN 05/07/2024 9:15 AM EST Office Visit [facility] [address] [place] [address] Natasha Jiang MD Kidney stone (Primary Dx) 05/07/2024 Telephone [facility] [address] [place] [address] Natasha Jiang MD Medication Question 05/07/2024 Orders Only [facility] [address] [place] [address] Natasha Jiang MD 05/07/2024 Travel 05/06/2024 Telephone [facility] [address] [place] [address] Sesar Pereyra MD Nurse Triage 04/30/2024 Refill [facility] [address] [place] [address] Sesar Pereyra MD Longstanding persistent atrial fibrillation (CMS/HCC); PVD (peripheral vascular disease) (CMS/HCC) 04/29/2024 Orders Only [facility] [address] [place] [address] Sesar Pereyra MD Closed nondisplaced fracture of acromial end of right clavicle, initial encounter 04/29/2024 Telephone [facility] [address] [place] [address] Sesar Pereyra MD Nurse Triage 04/28/2024 Refill [facility] [address] [place] [address] Sesar Pereyra MD 04/26/2024 Refill [facility] [address] [place] [address] Sesar Pereyra MD Closed nondisplaced fracture of acromial end of right clavicle, initial encounter 04/26/[address] [address] Sesar Pereyra MD Med Refill 04/18/2024 Refill [facility] [address] [place] [address] Loyda Jacobson, CLAUDIA Essential hypertension; Closed nondisplaced fracture of acromial end of right clavicle, initial encounter 04/18/[address] [address] Sesar Pereyra MD Med Refill from Last [...] Upcoming Encounters Date Type Department Care Team ([facility] st Contact Info) Description 09/11/2024 10:30 AM EDT Office Visit [facility] [address] [place] [address] Sesar Pereyra MD [address] [place] [address] Health Maintenance Due Date Last Done Comments [...] Lactic Acid 2.3(HH) 0.5 - 2.0 mmol/L [facility] Comment:Critical value for L ACTC: Results called to and read backby: DR THAYER Person calling: NEEL Date: 07-11-24 Time:1214 07/11/2024 11:3 9 AM EDT 07/11/2024 11:45 AM EDT us Generic External Data Provider LAB BLOOD ORDERAB LES Final Result [facility] [address] [place] [phone] * VENOUS BLOOD GAS (07/11/2024 11:38 AM EDT) Pathologist [facility] VBG pH 7.40 7.32 - 7.43 [facility] Comment:METER #: [id number] additional_comment: CbHernaso VBG PCO2 41 mmHg [facility] Comment:METER #: [id number] additional_comment: CbHernaso VBG PO2 28 mmHg [facility] Comment:METER #: [id number] additional_comment: CbHernaso VBG Base Excess 1.4 mmol/L [facility] Comment:METER #: [id number] additional_comment: CbHernaso VBG HCO3 26 22 - 26 mmol/L [facility] Comment:METER #: [id number] additional_comment: CbHernaso O2 Sat, Garrick 39.0 % [facility] Comment:METER #: [id number] additional_comment: CbHernaso 07/11/2024 11:3 8 AM EDT 07/11/2024 11:41 AM EDT us Generic External Data Provider LAB BLOOD ORDERAB LES Final Result Performing Organization Address [facility] de Phone Number [facility] [address] [place] [address] [phone] * HOLD LT BLUE - POSSIBLE COAG (07/11/2024 11:38 AM EDT) Hold Lt Blue - Possible Coag SEE NOTE [facility] Comment:Specimen will be hel d untested for 4 hours. Call Hematologyif testing is desired. 07/11/2024 11:3 8 AM EDT 07/11/2024 11:47 AM EDT us Generic External Data Provider LAB BLOOD ORDERAB LES Final Result Performing Organization Address [facility] de Phone Number [facility] [address] [place] [address] [phone] * XR Chest 1 View (07/11/2024 11:01 AM EDT) Anatomical Region Laterality Modality Chest Radiographic Homa ging 07/11/2024 11:0 1 AM EDT Narrative 07/11/2024 12:14 PM EDT ? [facility] ?[address] ?[place] [address] ?XRay Report ? Signed ? Patient: Royaki,Alex ?MR#: [id number] ?? [id number] ? : 1945 ?Acct:[id number] ? Age/Sex: 79 / M ?ADM Date: 07/11/24 ? Loc: HO.ED ? Attending Dr: ? Ordering Physician: Desirae Thayer MD ?? Date of Service: 07/11/24 ?? Procedure(s): XR chest 1V ?? Accession Number(s): [id number] ? cc: Desirae Thayer MD; Sesar Pereyra [...] DD/ 1101 ? TD/TT: 07/11/24 1202 ? Hand Crown Pouncer: ? Procedure Note Donotuseinterpreter, Image - 07/11/[address] [address] XRay Report Signed Patient: Alex NettlesMR#: [id number] : 1945cct:[id number] Age/Sex: 79 / MADM Date: 07/11/24 Loc: HO.ED Attending Dr: Ordering Physician: Desirae Thayer MD Date of Service: 07/11/24 Procedure(s): XR chest 1V Accession Number(s): [id number] cc: Desirae Thayer MD; Sesar Pereyra MD [...] 07/11/24 1211 DD/ 1101 TD/TT: 07/11/24 1202 Hand Crown Pouncer: us [facility] External Provider IMG XR PROCEDURES Edited Result - Final * FL Guidance in OR (06/21/2024 5:50 PM EST) Anatomical Region Laterality Modality X-Ray Angiograph y 06/21/2024 5:50 PM EST Narrative 06/24/2024 8:13 AM EST ? [facility] ?[address] ?[place], [place] [address] ? Fluoroscopy Report ? Signed ? Patient: Alex Nettles ?MR#: [id number] ?? [id number] ? : 1945 ?Acct:[id number] ? Age/Sex: 79 / M ?ADM Date: 06/19/24 ? Loc: HO.S3 ?363-2 ? Attending Dr: Tania Bernabe RADAR ENGINEERING TEACHER ? Ordering Physician: Royce Kothari MD ?? Date of Service: 06/21/24 ?? Procedure(s): FL guidance in OR ?? Accession Number(s): [id number] ? cc: Sesar Pereyra MD; Royce Kothari [...] 06/21/ 1750 ? TD/TT: 06/21/24 1750 ? Hand Crown Pouncer: ? Procedure Note Donotuseinterpreter, Image - 06/24/[address] [address] Fluoroscopy Report Signed Patient: Ronald Nettles#: [id number] : 1945cct:[id number] Age/Sex: 79 / MADM Date: 06/19/24 Loc: .S3 363-[address]: Tania Bernabe RADAR ENGINEERING TEACHER Ordering Physician: Royce Kothari MD Date of Service: 06/21/24 Procedure(s): FL guidance in OR Accession Number(s): [id number] cc: Sesar Pereyra MD; Royce Kothari MD [...] 06/24/24 0810 DD/ 1750 TD/TT: 06/21/24 175 Hand Crown Pouncer: us [facility] External Provider IMG IR PROCEDURES Final Result * CT Humerus (06/19/2024 8:00 PM EST) Anatomical Region Laterality Modality Computed Tomogra phy 06/19/2024 8:00 PM EST Narrative 06/19/2024 8:02 PM EST ? [facility] [facility] ?[address] ?[place] [address] ? CT Scan Report ? Signed ? Patient: Prawlucki,Alex ?MR#: [id number] ?? [id number] ? : 1945 ?Acct:[id number] ? Age/Sex: 79 / M ?ADM Date: 06/19/24 ? Loc: HO.ED ? Attending Dr: ? Ordering Physician: Angela Moura MD ?? Date of Service: 06/19/24 ?? Procedure(s): CT humerus LT wo IV con ?? Accession Number(s): [id number] ? cc: Sesar Pereyra MD; Angela Moura MD ? Report Number: ?? [id number]: Total DLP = ??192.00 mGy-cm ? CLINICAL [...] of the dorsal margin of the glenoid. Irsalacr-xk-dpkql ?? 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 ?? 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 ?? Please refer to separate report for x-rays of the partially included elbow. ?? Mild imaged rib deformities in the kxyda-ol-kabo appear old/chronic. ? Impression: ?? 1. Anterior [...] ? DD/ 99 ? TD/TT: 06/19/241999 ? Hand Crown Pouncer: ? Procedure Note Donotuseinterpreter, Image - 06/20/[address] [address] [address] Scan Report Signed Patient: Ronald Nettles#: [id number] : 1945cct:[id number] Age/Sex: 79 / MADM Date: 06/19/24 Loc: HO.ED Attending Dr: Ordering Physician: Angela Moura MD Date of Service: 06/19/24 Procedure(s): CT humerus LT wo IV con Accession Number(s): [id number] cc: Sesar Pereyra MD; Angela Moura MD Report Number: [id number]: Total DLP = 192.00 mGy-cm CLINICAL HISTORY: [...] of the dorsal margin of the glenoid. Fowupbns-bd-hrhdj effusion with lipohemarthrosis of the left glenohumeral joint. 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 Please refer to separate report for x-rays of the partially includedelbow. Mild imaged rib deformities in the qkxcb-za-ypyt appear old/chronic. Impression: 1. Anterior dislocation of [...] in OV> 06/19/242001 DD/ 99 TD/TT: 06/19/241999 Hand Crown Pouncer: [facility] External Provider IMG CT PROCEDURES Final Result * (ABNORMAL) CBC auto differential (06/19/2024 7:57 PM EST) White Blood Count 11.9(H) 4.8 - 10.8 X10*3/uL [facility] Red Blood Count 4.64 4.60 - 5.80 X10*6/uL [facility] Hemoglobin 14.3 14.0 - 18.0 g/dl [facility] Hematocrit 42.9 42.0 - 52.0 % [facility] Mean Corpuscular Volume 92.5 80.0 - 98.0 fL [facility] Mean Corpuscular Hemoglobin 30.8 27.0 - 33.0 pg [facility] Mean Corpuscular HGB Conc 33.3 31.0 - 36.0 g/dl [facility] Red Cell Distribution Width 14.4 11.0 - 16.0 % [facility] Platelet Count 238 160 - 400 X10*3/uL [facility] Mean Platelet Volume 9.9 9.4 - 12.4 fL [facility] Neutrophils Percent Auto 83.9(H) 45 - 73 % [facility] Imm Gran Pct Auto 0.3 0.0 - 0.4 % [facility] Lymphocytes Percent Auto 7.1(L) 20 - 40 % [facility] Monocytes Percent Auto 8.1 2 - 11 % [facility] Eosinophils Percent Auto 0.2 0 - 4 % [facility] Basophils Percent Auto 0.4 0 - 2 % [facility] NRBC Pct Auto 0.0 0.0 - 0.2 /100WBC [facility] Neutrophils Absolute Auto 10.0(H) 2.0 - 8.3 x10*3/uL [facility] Imm Gran Abs Auto 0.04(H) 0.00 - 0.03 X10*3/uL [facility] Lymphocytes Absolute Auto 0.9(L) 1.2 - 4.9 X10*3/uL [facility] Monocytes Absolute Auto 1.0 0.1 - 1.2 X10*3/uL [facility] Eosinophils Absolute Auto 0.0 0.0 - 0.4 X10*3/uL [facility] Basophils Absolute Auto 0.1 0.0 - 0.2 X10*3/uL [facility] NRBC Abs Auto 0.000 0.0 - 0.012 X10*3/uL [facility] 06/19/2024 7:57 PM EST 06/19/2024 8:05 PM EST Generic External Data Provider LAB BLOOD ORDERAB LES Edited Result - Final Performing Organization Address City/[facility]/ZIP Co de Phone Number [facility] [address] [place] [phone] * (ABNORMAL) Prothrombin Time-INR (06/19/2024 7:57 PM EST) Prothrombin Time 16.0(H) 10.9 - 12.4 SEC [facility] INTERNATIONAL NORM RATIO 1.4(H) 0.9 - 1.1 [facility] Comment:INTERNATIONAL NORMAL IZED RATIO (INR) [...] ORDERAB LES Final Result Performing Organization Address [facility] Co de Phone Number [facility] [address] [place] [phone] * XR Elbow 3+ Views Left (06/19/2024 7:16 PM EST) Anatomical Region Laterality Modality Upper Extremities, Elbow Left Radiogr aphic Imaging 06/19/2024 7:16 PM EST Narrative 06/19/2024 7:18 PM EST ? [facility] ?[address] ?[place] [address] ?XRay Report ? Signed ? Patient: Alex Nettles ?MR#: [id number] ?? [id number] ? : 1945 ?Acct:[id number] ? Age/Sex: 79 / M ?ADM Date: 06/19/24 ? Loc: HO.ED ? Attending Dr: ? Ordering Physician: Angela Moura MD ?? Date of Service: 06/19/24 ?? Procedure(s): XR elbow LT min 3V ?? Accession Number(s): [id number] ? cc: Sesar Pereyra MD; Angela Moura [...] ? Signed By: ?<Electronically signed by Franko Rutherofrd MD in OV> ? 06/19/241916 ? DD/ 15 ? TD/TT: 06/19/241915 ? Hand Crown Pouncer: ? Procedure Note Alonzo Ng - 06/19/[address] [place] [address] XRay Report Signed Patient: Alex Nettles#: [id number] : 7Acct:[id number] Age/Sex: 79 / MADM Date: 06/19/24 Loc: HO.ED Attending Dr: Ordering Physician: Angela Moura MD Date of Service: 06/19/24 Procedure(s): XR elbow LT min 3V Accession Number(s): [id number] cc: Sesar Pereyra MD; Angela Moura MD [...] in OV> 06/19/241916 DD/ 15 TD/TT: 06/19/241915 Hand Crown Pouncer: [facility] External Provider IMG XR PROCEDURES Final Result * CT Head w/o Contrast (06/19/2024 7:12 PM EST) Anatomical Region Laterality Modality Head, Neck Computed Tomogra phy 06/19/2024 7:12 PM EST Narrative 06/19/2024 7:14 PM EST ? [facility] ?[address] ?[place] [address] ? CT Scan Report ? Signed ? Patient: Prawismaelki,Alex ?MR#: [id number] ?? [id number] ? : 1945 ?Acct:[id number] ? Age/Sex: 79 / M ?ADM Date: 02/19/25 ? Loc: HO.ED ? Attending Dr: ? Ordering Physician: Lonny Delgado ?? Date of Service: 06/19/24 ?? Procedure(s): CT head/brain wo IV con ?? Accession Number(s): [id number] ? cc: Sesar Pereyra MD; Lonny Delgado ? Report Number: ?? [id number]: Total DLP = ??652.00 mGy-cm ? CLINICAL [...] ? DD/ 11 ? TD/TT: 06/19/241911 ? Hand Crown Pouncer: ? Procedure Note Hernandez, Image - 06/19/[address] [place] [address] [address] Scan Report Signed Patient: Alex Nettles#: [id number] : 1945cct:[id number] Age/Sex: 79 / MADM Date: 06/19/24 Loc: HO.ED Attending Dr: Ordering Physician: Lonny Delgado Date of Service: 06/19/24 Procedure(s): CT head/brain wo IV con Accession Number(s): [id number] cc: Sesar Pereyra MD; Lonny Delgado Report Number: [id number]: Total DLP = 652.00 mGy-cm CLINICAL HISTORY: [...] in OV> 06/19/241912 DD/ 11 TD/TT: 06/19/241911 Hand Crown Pouncer: [facility] External Provider IMG CT PROCEDURES Final Result * Lipase (06/19/2024 6:17 PM EST) Lipase 17 8 - 78 U/L [facility] 06/19/2024 6:17 PM EST 06/19/2024 6:19 PM EST Generic External Data Provider LAB BLOOD ORDERAB LES Final Result [facility] [address] [place] [phone] * (ABNORMAL) Comprehensive Metabolic Panel (06/19/2024 6:17 PM EST) Sodium 142 135 - 145 mmol/L [facility] Potassium 3.8 3.3 - 5.1 mmol/L [facility] Comment:Slight Hemolysis.Int erpret result with caution. Chloride 109(H) 96 - 108 mmol/L [facility] Carbon Dioxide 23 22 - 29 mmol/L [facility] Anion Gap 14 12 - 20 [facility] Urea Nitrogen (BUN) 13 9 - 16 mg/dL [facility] Creatinine, Serum 1.11 0.5 - 1.4 mg/dL [facility] Creatinine Clr Calc Pharmacy 72.1 [facility] Comment:eGFR (calculated fro m the MDRD study equation) and eCrCl(calculated from the Cockcroft-Gault equation) are based ondifferent parameters and may not yield comparable results.If eCrCl result is absurd, please check patient'sheight/weight. Estimated Glomerular Filt Rate >60 [facility] Comment:Chronic Kidney Disea se: Estimated GFR < 60 mL/min/1.96n0Pxuhyc Kidney Disease: Estimated GFR < 15 mL/min/1.73m2 Glucose 92 60 - 115 mg/dL [facility] Calcium 9.1 8.4 - 10.2 mg/dL [facility] Bilirubin, Total 0.5 0.0 - 1.0 mg/dL [facility] Aspartate Amino Transferase 27 5 - 37 U/L [facility] Comment:Slight Hemolysis.Int erpret result with caution. Alanine Aminotransferase 14 0 - 40 U/L [facility] Total Protein 7.7 6.5 - 8.0 g/dL [facility] Albumin Level 4.1 3.5 - 5.0 g/dL [facility] Alkaline Phosphatase 119(H) 39 - 117 U/L [facility] 06/19/2024 6:17 PM EST 06/19/2024 6:19 PM EST us Generic External Data Provider LAB BLOOD ORDERAB LES Final Result [facility] [address] [place] [address] [phone] * XR Shoulder 2+ Views Left (06/19/2024 4:00 PM EST) Anatomical Region Laterality Modality Upper Extremities, Shoulder Left Radi ographic Imaging 06/19/2024 4:00 PM EST Narrative 06/19/2024 4:23 PM EST ? [facility] ?[address] ? [place] [address] ?XRay Report ? Signed ? Patient: Prawismaelki,Alex ?MR#: [id number] ?? [id number] ? : 1945 ?Acct:[id number] ? Age/Sex: 79 / M ?ADM Date: 06/19/24 ? Loc: HO.HMGCX ? Attending Dr: Teresa Marie PA-C ? Ordering Physician: Teresa Marie PA-C ?? Date of Service: 06/19/24 ?? Procedure(s): XR shoulder LT min 2V ?? Accession Number(s): [id number] ? cc: Sesra Pereyra MD; Teresa Marie PA-C ? EXAMINATION: [...] DD/ 1600 ? TD/TT: 06/19/24 1611 ? Hand Crown Pouncer: ? Procedure Note Hernandez, Alonzo - 06/19/2024 [facility] [address] [place] [address] XRay Report Signed Patient: Alex Nettles#: [id number] : 1945cct:[id number] Age/Sex: 79 / MADM Date: 06/19/24 Loc: HO.HMGCX Attending Dr: Teresa Marie PA-C Ordering Physician: Teresa Marie PA-C Date of Service: 06/19/24 Procedure(s): XR shoulder LT min 2V Accession Number(s): [id number] cc: Sesar Pereyra MD; Teresa Marie PA-C [...] 06/19/24 1621 DD/ 1600 TD/TT: 06/19/24 1611 Hand Crown Pouncer: [facility] External Provider IMG XR PROCEDURES Final Result * Creatinine, Serum (06/12/2024 12:09 PM EST) Creatinine, Serum 1.13 0.5 - 1.4 mg/dL [facility] Estimated Glomerular Filt Rate >60 [facility] Comment:Chronic Kidney Disea se: Estimated GFR < 60 mL/min/1.79i8Opwvey Kidney Disease: Estimated GFR < 15 mL/min/1.73m2 06/12/2024 12:0 9 PM EST 06/12/2024 12:14 PM EST us Generic External Data Provider LAB BLOOD ORDERAB LES Final Result Performing Organization Address [facility] Co de Phone Number [facility] [address] [place] [phone] * (ABNORMAL) BUN (Blood Urea Nitrogen) (06/12/2024 12:09 PM EST) Urea Nitrogen (BUN) 18(H) 9 - 16 mg/dL [facility] 06/12/2024 12:0 9 PM EST 06/12/2024 12:14 PM EST Generic External Data Provider LAB BLOOD ORDERAB LES Final Result Performing Organization Address [facility] Phone Number [facility] [address] [place] [phone] * Calcium (06/12/2024 12:09 PM EST) Calcium 9.1 8.4 - 10.2 mg/dL [facility] 06/12/2024 12:0 9 PM EST 06/12/2024 12:14 PM EST Generic External Data Provider LAB BLOOD ORDERAB LES Final Result Performing Organization Address [facility] de Phone Number [facility] [address] [place] [phone] * (ABNORMAL) Electrolyte Panel (06/12/2024 12:09 PM EST) Sodium 142 135 - 145 mmol/L [facility] Potassium 4.0 3.3 - 5.1 mmol/L [facility] Comment:Slight Hemolysis.Int erpret result with caution. Chloride 109(H) 96 - 108 mmol/L [facility] Carbon Dioxide 24 22 - 29 mmol/L [facility] Anion Gap 13 12 - 20 [facility] 06/12/2024 12:0 9 PM EST 06/12/2024 12:14 PM EST us Generic External Data Provider LAB BLOOD ORDERAB LES Final Result [facility] [address] [place] [phone] * XR KUB and Upright 2 Views (05/07/2024 10:21 AM EST) Anatomical Region Laterality Modality Radiographic Homa ging 05/07/2024 10:2 1 AM EST Narrative 05/07/2024 10:48 AM EST ? [facility] ?[address] ?[place] [address] ?XRay Report ? Signed ? Patient: JocelynescoobyAlex ?MR#: [id number] ?? [id number] ? : 1945 ?Acct:[id number] ? Age/Sex: 79 / M ?ADM Date: 05/07/24 ? Loc: HO.XRAY ? Attending Dr: Natasha Jiang MD ? Ordering Physician: Natasha Jiang MD ?? Date of Service: 05/07/24 ?? Procedure(s): XR KUB ?? Accession Number(s): [id number] ? cc: Sesar Pereyra MD; Natasha Jiang [...] DD/ 1021 ? TD/TT: 05/07/24 1040 ? Hand Crown Pouncer: ? Procedure Note Doncathieter, Image - 05/07/[address] [address] XRay Report Signed Patient: Alex NettlesMR#: [id number] : 1945cct:[id number] Age/Sex: 79 / MADM Date: 05/07/24 Loc: HO.XRAY Attending Dr: Natasha Jiang MD Ordering Physician: Natasha Jiang MD Date of Service: 05/07/24 Procedure(s): XR KUB Accession Number(s): [id number] cc: Sesar Pereyra MD; Natasha Jiang MD [...] 05/07/24 1045 DD/ 1021 TD/TT: 05/07/24 1040 Hand Crown Pouncer: Natasha Jiang MD IMG XR PROCEDURES Edited Result - Final * (ABNORMAL) POCT Urinalysis (05/07/2024 9:33 AM EST) Pathologist [facility] Color, UA Brown Clarity, UA Turbid Glucose, [...] C Ab (07/19/2023 11:42 AM EDT) Pathologist [facility] Hepatitis C Antibody Nonreactive Nonreactive [facility] Comment:Antibodies to HCV no t detected; does not exclude early acuteHCV infection. Blood Venous blood specimen / Unknown 07/19/2023 11:42 AM EDT 07/19/2023 2:25 PM EDT Sesar Pereyra MD LAB BLOOD ORDERABLES Final Result [facility] [address] [place], [place] [phone] * (ABNORMAL) LIPID PANEL, STANDARD (03/05/2021 9:16 AM EDT) Pathologist [facility] Chol/HDLC Ratio 4.1 <5.0 (calc) [facility] [...] ?? Ulisses MCDANIEL et al. MANDEEP. 2013;310(19): 9072-9218 ?? (http://SuppreMol.Bankfeeinsider.com/faq/AJR545) Non-HDL Cholesterol 104 <130 mg/dL (calc) [facility] Comment: For patients with diabetes plus 1 major ASCVD risk ?? factor, treating to a non-HDL-C goal of <100 mg/dL ?? (LDL-C of <70 mg/dL) is considered a therapeutic ?? option. Triglycerides 232(H) <150 mg/dL [facility] Comment: ?? If a non-fasting specimen was collected, consider repeat triglyceride testing on a fasting specimen if clinically indicated. ?? Estela et al. J. of Clin. Lipidol. 2015;9:129-169. ?? 03/05/2021 9:16 AM EDT us Sesar Pereyra MD LAB BLOOD ORDERABLES Final Result [facility] [address] from Last 3 Months or Most Recently Relevant to Health Maintenance Insurance [employer] MEDICARE REPLACEMENT HS FULL Care Teams Mechanical Car Checker Relationship Specialty Start Date End Date Sesar Pereyra MD [address] [place] [phone] PCP - General Internal Medicine 03/01/21 [facility] 03/22/24
--- OUTSIDE RECORDS SUMMARY | 2024-07-15 17:02 | XMS_ITS | Encounter Summary ---
Author Organization [facility] Address [address] [place] [address] Care Team Providers Care Beef Skinner Name Role Phone Annalee Jones MD Primary Care Provider Un available Yolande Nicholas DO Primary Care Pro vider Unavailable Anuj Priest DO Primary Care Provider Judy vailable [facility], Pcp Primary Care Provider Unavailabl e Encounter Details Date Type Department Care Team Description 02/07/2017 Bowling Ball Molder Report Medical Records [address] [place] [address] Dhruv Garcia MD Social History Tobacco Use [...] on filedocumented in this encounter Care Teams Beef Skinner Relationship Specialty Start Date End Date Annalee Jones MD PCP - General Internal Medicine 01/06/17 9 Yolande Nicholas DO PCP - General Internal Medicine 12/03/18 10/08/20 Anuj Priest DO PCP - General Internal Medicine 10/09/20 2 Jj, Pcp PCP - General Internal Medicine 06/17/21 documented as of this encounter
--- OUTSIDE RECORDS SUMMARY | 2024-07-15 17:02 | XMS_ITS | Encounter Summary ---
Author Organization [employer] Address [address] [facility] 7t [place] [address] Care Team Providers Care Oracle Financials Developer Name Role Phone Sesar Pereyra MD Primary Care Provider [phone] Encounter Details Date Type Department Care Team [...] Upcoming Encounters Date Type Department Care Team ([facility] st Contact Info) Description 09/11/2024 10:30 AM EDT Office Visit [facility] MED & PEDS [address] [place], [place] [phone] Sesar Pereyra MD [address] [place], [place] [phone] documented as of this encounter Procedures Procedure [...] Lactic Acid 2.3() 0.5 - 2.0 mmol/L [facility] Comment:Critical value for L ACTC: Results called to and read backby: DR REBOLLEDO Person calling: NEEL Date: 07-11-24 Time:1214 07/11/2024 11:3 9 AM EDT 07/11/2024 11:45 AM EDT us Generic External Data Provider LAB BLOOD ORDERAB LES Final Result [facility] [address] [place] [address] [phone] * HOLD LT BLUE - POSSIBLE COAG (07/11/2024 11:38 AM EDT) Hold Lt Blue - Possible Coag SEE NOTE [facility] Comment:Specimen will be hel d untested for 4 hours. Call Hematologyif testing is desired. 07/11/2024 11:3 8 AM EDT 07/11/2024 11:47 AM EDT us Generic External Data Provider LAB BLOOD ORDERAB LES Final Result Performing Organization Address [facility] Co de Phone Number [facility] [address] [place] [phone] * VENOUS BLOOD GAS (07/11/2024 11:38 AM EDT) VBG pH 7.40 7.32 - 7.43 [facility] Comment:METER #: [id number] additional_comment: CbHernaso VBG PCO2 41 mmHg [facility] Comment:METER #: [id number] additional_comment: CbHernaso VBG PO2 28 mmHg [facility] Comment:METER #: [id number] additional_comment: CbHernaso VBG Base Excess 1.4 mmol/L [facility] Comment:METER #: [id number] additional_comment: CbHernaso VBG HCO3 26 22 - 26 mmol/L [facility] Comment:METER #: [id number] additional_comment: CbHernaso O2 Sat, Garrick 39.0 % [facility] Comment:METER #: [id number] additional_comment: CbHernaso 07/11/2024 11:3 8 AM EDT 07/11/2024 11:41 AM EDT us Generic External Data Provider LAB BLOOD ORDERAB LES Final Result Performing Organization Address City/[facility] Co de Phone Number [facility] [address] [place] [address] [phone] * XR Chest 1 View (07/11/2024 11:01 AM EDT) Anatomical Region Laterality Modality Chest Radiographic Homa ging 07/11/2024 11:0 1 AM EDT Narrative 07/11/2024 12:14 PM EDT ? [facility] ?[address] ?[place] [address] ?XRay Report ? Signed ? Patient: Alex Nettles ?MR#: [id number] ?? [id number] ? : 1945 ?Acct:[id number] ? Age/Sex: 79 / M ?ADM Date: 07/11/24 ? Loc: HO.ED ? Attending Dr: ? Ordering Physician: Desirae Rebolledo MD ?? Date of Service: 07/11/24 ?? Procedure(s): XR chest 1V ?? Accession Number(s): [id number] ? cc: Desirae Rebolledo MD; Sesar Pereyra [...] DD/ 1101 ? TD/TT: 07/11/24 1202 ? Hotel Assistant General Manager: ? Procedure Note Hernandez, Image - 07/11/[address] [address] XRay Report Signed Patient: Alex NettlesMR#: [id number] : 1945cct:[id number] Age/Sex: 79 / MADM Date: 07/11/24 Loc: HO.ED Attending Dr: Ordering Physician: Desirae Rebolledo MD Date of Service: 07/11/24 Procedure(s): XR chest 1V Accession Number(s): [id number] cc: Desirae Rebolledo MD; Sesar Pereyra MD [...] 07/11/24 1211 DD/ 1101 TD/TT: 07/11/24 1202 Hotel Assistant General Manager: [facility] External Provider IMG XR PROCEDURES Edited Result - Final documented in this encounter Visit Diagnoses Not on filedocumented in this encounter Additional Health Concerns Assessment Noted Time PHQ-9 Depression Total Score: 16 024 10:59 AM EDT documented as of this encounter Care Teams Oracle Financials Developer Relationship Specialty Start Date End Date Sesar Pereyra MD [address] [place] [address] PCP - General Internal Medicine 03/01/21 [facility] 03/22/24 documented as of this encounter
--- OUTSIDE RECORDS SUMMARY | 2024-07-15 17:02 | XMS_ITS | Encounter Summary ---
Author Organization [facility] Address [address] [place] [address] Care Team Providers Care Natural Resource Manager Name Role Phone Yolande Nicholas DO Primary Care Pro vider Unavailable Anuj Priest DO Primary Care Provider [facility], Pcp Primary Care Provider Unavailabl e Reason for Visit * Reason Onset Date Comments Information Needed 09/06/2019 Encounter Details Date Type Department Care Team Description 09/06/2019 Telephone Adult [address] [address] Yolande Nicholas DO Information Needed Social History [...] Perez M.A. - 09/06/2019 2:36 PM EDT [facility] - [phone] Left detailed msg for pt to call above number to request the discharge summary, Unable to get the D/C summary through [employer] * Telephone Encounter - Judith Cardenas - 09/06/2019 10:47 AM EDT Patient's girlfriend Ame is requesting the discharge summary to be faxed to Dr. Baker to [phone] * Telephone Encounter - Sabina Zaman - 09/06/2019 9:49 AM EDT Ame, the patient girlfriend is calling stating that the patient needs the discharge summary from [facility] to sent [facility] to [facility], to Dr. Duc Baker for his audio visit 09/06/2019 in order for the patient to continue to get prescribe his anxiety medication. Please advise. documented in this encounter Plan of Treatment Not on file documented as of this encounter Visit Diagnoses Not on filedocumented in this encounter Care Teams Natural Resource Manager Relationship Specialty Start Date End Date Yolande Nicholas DO PCP - General Internal Medicine 12/03/18 10/08/20 Anuj Priest DO PCP - General Internal Medicine 10/09/[address] [place] [address], Pcp PCP - General Internal Medicine 06/17/21 documented as of this encounter
--- OUTSIDE RECORDS SUMMARY | 2024-07-15 17:02 | XMS_ITS | Encounter Summary ---
Author Organization [employer] Address [address] [facility] 7t [place] [address] Care Team Providers Care Interlibrary Loan Specialist Name Role Phone Sesar Pereyra MD Primary Care Provider [phone] Encounter Details Date Type Department Care Team ([facility] st Contact Info) Description 07/10/2024 Telephone [facility] CH[facility] MED & PEDS [address] [place], [place] [phone] Sesar Pereyra MD [address] [place] [address] Social History Tobacco Use Types Packs/Day Years [...] tablet was sent to the incorrect pharmacy. [facility] requested a transfer but was til to contact pcp office . Preferred pharmacy [facility] - [address] Pt [facility] has been without meds. documented in this encounter Plan of Treatment Upcoming Encounters Date Type Department Care Team ([facility] st Contact Info) Description 09/11/2024 10:30 AM EDT Office Visit [facility] MED [facility] PEDS [address] [place] [address] Sesar Pereyra MD [address] [place] [address] documented as of this encounter Visit Diagnoses Not on filedocumented in this encounter Additional Health Concerns Assessment Noted Time PHQ-9 Depression Total Score: 16 024 10:59 AM EDT documented as of this encounter Care Teams Interlibrary Loan Specialist Relationship Specialty Start Date End Date Sesar Pereyra MD [address] [place] [address] PCP - General Internal Medicine 03/01/21 [facility] 03/22/24 documented as of this encounter
--- OUTSIDE RECORDS SUMMARY | 2024-07-15 17:02 | XMS_ITS | Encounter Summary ---
Author Organization [facility] Address [address] [place] [address] Care Team Providers Care Pain Management Nurse Name Role Phone Yolande Nicholas DO Primary Care Pro vider Unavailable Anuj Priest DO Primary Care Provider [facility], Pcp Primary Care Provider Unavailabl e Encounter Details Date Type Department Care Team Description 09/04/2019 Telephone Internal Medicine - [address], [address] [place], [place] [phone] Alana Stinson MD [address] [place] [phone] Social History Tobacco Use Types Packs/Day [...] PM EDT Spoke to someone from [facility] rehab they will send discharge notes. * Telephone Encounter - Alana Stinson MD - 09/04/2019 11:48 AM EDT PLS GET DISCHARGE SUMMARY FROM [facility] [place], documented in this encounter Plan of Treatment Not on file documented as of this encounter Visit Diagnoses Not on filedocumented in this encounter Care Teams Pain Management Nurse Relationship Specialty Start Date End Date Yolande Nicholas DO PCP - General Internal Medicine 12/03/18 10/08/20 Anuj Priest DO PCP - General Internal Medicine 10/09/20 2 [facility], Pcp PCP - General Internal Medicine 06/17/21 documented as of this encounter
--- OUTSIDE RECORDS SUMMARY | 2024-07-15 17:02 | XMS_ITS | Encounter Summary ---
Author Organization [employer] Address [address] [facility] 7t [place] [address] Care Team Providers Care Filler Shredder Name Role Phone Sesar Pereyra MD Primary Care Provider [phone] Encounter Details Date Type Department Care Team ([facility] st Contact Info) Description 04/29/2024 Orders Only [facility] CHC MED & PEDS [address] [place], [place] [phone] Sesar Pereyra MD [address] [place] [address] Closed nondisplaced fracture of acromial end of [...] ([facility] st Contact Info) Description 09/11/2024 10:30 AM EDT Office Visit [facility] MED & PEDS [address] [place] [address] Sesar Pereyra MD [address] [place] [address] documented as of this encounter Visit Diagnoses Diagnosis Closed nondisplaced fracture of acromial end of right clavicle, initial encounter documented in this encounter Additional Health Concerns Assessment Noted Time PHQ-9 Depression Total Score: 16 024 10:59 AM EDT documented as of this encounter Care Teams Filler Shredder Relationship Specialty Start Date End Date Sesar Pereyra MD [address] [facility] [place] [address] PCP - General Internal Medicine 03/01/21 [facility] 03/22/24 documented as of this encounter
--- OUTSIDE RECORDS SUMMARY | 2024-07-15 17:02 | XMS_ITS | Encounter Summary ---
Author Organization [employer] [facility] Address [address] [place] [address] Care Team Providers Care Customer Engagement Analyst Name Role Phone Ghassan Burciaga MD Primary Care Provider Unavail able Pierre Arevalo MD Primary Care Provider Judy vailable Gerson Dawson MD Primary Care Provider Unavail able [facility], Pcp Primary Care Provider Unavailabl e Coleman Mccarthy MD Primary Care Provider Unavaila Ayo Demarco MD Primary Care Provider [phone] Annalee Jones MD Primary Care Provider Un available Pascual Nicholasabela DO Primary Care Pro vider Unavailable Anuj Priest DO Primary Care Provider Judy vailable [facility], Pcp Primary Care Provider Unavailabl e Encounter Details Date Type Department Care Team Description 01/27/2009 Hospital Medical Records [address] [place] [phone] Bacilio Ward MD Social History Tobacco Use [...] on filedocumented in this encounter Care Teams Customer Engagement Analyst Relationship Specialty Start Date End Date Ghassan Burciaga MD PCP - General 07/24/00 05/06/13 Pierre Arevalo MD PCP - General Internal Medicine 05/07/13 4 Gerson Dawson MD PCP - General Internal Medicine 01/30/14 03/20/14 [facility], Pcp PCP - General Internal Medicine 03/21/14 05/06/14 Coleman Mccarthy MD PCP - General Internal Medicine 05/07/14 07/18/16 Ayo Carpio MD [address] [place], [place] [phone] PCP - General Internal Medicine 07/19/16 01/05/17 Annalee Jones MD [address] [place], [place] [phone] PCP - General Internal Medicine 01/06/17 12/02/18 Yolande Nicholas, DO [address] [place] [address] PCP - General Internal Medicine 12/03/18 10/08/20 Anuj Priest, [address] [place] [address] PCP - General Internal Medicine 10/09/20 06/16/21 [facility], Pcp PCP - General Internal Medicine 06/17/21 documented as of this encounter
--- OUTSIDE RECORDS SUMMARY | 2024-07-15 17:03 | XMS_ITS | Encounter Summary ---
Author Organization [facility] Address [address] [place] [address] Care Team Providers Care Biopsychologist Name Role Phone Yolande Nicholas DO Primary Care Pro vider Unavailable Anuj Priest DO Primary Care Provider Judy á[facility], Pcp Primary Care Provider Unavailabl e Encounter Details Date Type Department Care Team Description 03/06/2019 Financial Institution President Report Medical Records [address] [place] [address] Adilia Navarro PA-C Social History Tobacco Use [...] on filedocumented in this encounter Care Teams Biopsychologist Relationship Specialty Start Date End Date Yolande Nicholas DO PCP - General Internal Medicine 12/03/18 10/08/20 Anuj Priest DO PCP - General Internal Medicine 10/09/20 Jj, Pcp PCP - General Internal Medicine 06/17/21 documented as of this encounter
--- OUTSIDE RECORDS SUMMARY | 2024-07-15 17:03 | XMS_ITS | Encounter Summary ---
Author Organization [facility] Address [address] [place] [address] Care Team Providers Care Roll Slicing Machine Tender Name Role Phone Yolande Nicholas DO Primary Care Pro vider Unavailable Anuj Priest DO Primary Care Provider [facility], Pcp Primary Care Provider Unavailabl e Reason for Visit * Reason Onset Date Comments Mychart Rx Refill 02/15/2019 Encounter Details Date Type Department Care Team Description 02/15/2019 Refill Adult Medicine [facility] [address] [place] [address] [facility] [address] [place] [address] Mychart Rx Refill Social History Tobacco Use [...] 20 MG tablet [MELITON Lombardo] Preferred pharmacy: [facility] [address] [place] Comment: Need to have a refill documented in this encounter Plan of Treatment Not on file documented as of this encounter Visit Diagnoses Not on filedocumented in this encounter Care Teams Roll Slicing Machine Tender Relationship Specialty Start Date End Date Yolande Nicholas DO PCP - General Internal Medicine 12/03/18 10/08/20 Anuj Priest DO PCP - General Internal Medicine 10/09/20 2 [facility], Pcp PCP - General Internal Medicine 06/17/21 documented as of this encounter
--- OUTSIDE RECORDS SUMMARY | 2024-07-15 17:03 | XMS_ITS | Encounter Summary ---
Author Organization [facility] Address [address] [place] [address] Care Team Providers Care Car Wiper Name Role Phone Yolande Nicholas DO Primary Care Pro vider Unavailable Anuj Priest DO Primary Care Provider [facility], Pcp Primary Care Provider [facility] Encounter Details Date Type Department Care Team Description 04/04/2020 Pt. Non Urgent Medic al Question Adult Medicine [address] [address] Yolande Nicholas DO Social History Tobacco Use [...] 04/04/2020 12:08 PM EST Subject: erictile disfuction [id number] 30ct. documented in this encounter Plan of Treatment Not on file documented as of this encounter Visit Diagnoses Not on filedocumented in this encounter Care Teams Car Wiper Relationship Specialty Start Date End Date Yolande Nicholas DO PCP - General Internal Medicine 12/03/18 10/08/20 Anuj Priest DO PCP - General Internal Medicine 10/09/20 2 [facility], Pcp PCP - General Internal Medicine 06/17/21 documented as of this encounter
--- OUTSIDE RECORDS SUMMARY | 2024-07-15 17:03 | XMS_ITS | Encounter Summary ---
Author Organization [facility] Address [address] [place] [address] Care Team Providers Care Business Technology Architect Name Role Phone Yolande Nicholas DO Primary Care Pro vider Unavailable Anuj Priest DO Primary Care Provider Judy álvarez [facility], Pcp Primary Care Provider Unavailabl e Encounter Details Date Type Department Care Team Description 05/04/2020 Tube Machine Operator Helper Report Medical Records [address] [place] [address] Dhruv Garcia MD Social History Tobacco Use [...] filedocumented in this encounter Care Teams Business Technology Architect Relationship Specialty Start Date End Date Yolande Nicholas DO PCP - General Internal Medicine 12/03/18 10/08/20 Anuj Priest DO PCP - General Internal Medicine 10/09/20 Molly Gardner, Pcp PCP - General Internal Medicine 06/17/21 documented as of this encounter
--- OUTSIDE RECORDS SUMMARY | 2024-07-15 17:03 | XMS_ITS | Encounter Summary ---
Author Organization [facility] Address [address] [place] [address] Care Team Providers Care Content Developer Name Role Phone Annalee Jones MD Primary Care Provider Un available Yolande Nicholas DO Primary Care Pro vider Unavailable Anuj Priest DO Primary Care Provider Judy vailable [facility], Pcp Primary Care Provider Unavailabl e Encounter Details Date Type Department Care Team Description 08/28/2018 Data Integrity Specialist Report Medical Records [address] [place] [address] Duc Mcguire Social History Tobacco Use Types [...] on filedocumented in this encounter Care Teams Content Developer Relationship Specialty Start Date End Date Annalee Jones MD PCP - General Internal Medicine 01/06/17 9 Yolande Nicholas DO PCP - General Internal Medicine 12/03/18 10/08/20 Anuj Priest DO PCP - General Internal Medicine 10/09/20 2 Jj, Pcp PCP - General Internal Medicine 06/17/21 documented as of this encounter
--- OUTSIDE RECORDS SUMMARY | 2024-07-15 17:03 | XMS_ITS | Encounter Summary ---
Author Organization [facility] Address [address] [place] [address] Care Team Providers Care Floor Worker Name Role Phone Yolande Nicholas DO Primary Care Pro vider Unavailable Anuj Priest DO Primary Care Provider [facility], Pcp Primary Care Provider Unavailabl e Reason for Visit * Reason Onset Date Comments VNA Call 03/03/2020 [facility] vna Encounter Details Date Type Department Care Team Description 03/03/2020 Telephone Adult Medicine [facility] [address] [place] [address] Yolande Nicholas DO VNA Call ([place] [facility]) Social History Tobacco Use Types Packs/Day [...] filedocumented in this encounter Care Teams Floor Worker Relationship Specialty Start Date End Date Yolande Nicholas DO PCP - General Internal Medicine 12/03/18 10/08/20 Anuj Priest DO PCP - General Internal Medicine 10/09/[address] [place] [address], Pcp PCP - General Internal Medicine 06/17/21 documented as of this encounter
--- OUTSIDE RECORDS SUMMARY | 2024-07-15 17:03 | XMS_ITS | Encounter Summary ---
Author Organization [employer] [facility] Address [address] [place] [address] Care Team Providers Care Geodetic Technician Name Role Phone Ghassan Burciaga MD Primary Care Provider Unavail able Pierre Arevalo MD Primary Care Provider Judy vailable Gerson Dawson MD Primary Care Provider Unavail able [facility], Pcp Primary Care Provider Unavailabl e Coleman Mccarthy MD Primary Care Provider Unavaila Ayo Demarco MD Primary Care Provider [phone] Annalee Jones MD Primary Care Provider Un available Pascual Nicholasabela DO Primary Care Pro vider Unavailable Anuj Priest DO Primary Care Provider Judy vailable [facility], Pcp Primary Care Provider Unavailabl e Encounter Details Date Type Department Care Team Description 08/06/2010 Release of Information Medical Records [address] [place] [id number] Abstract, Provider Social History Tobacco Use Types [...] filedocumented in this encounter Care Teams Geodetic Technician Relationship Specialty Start Date End Date Ghassan Burciaga MD PCP - General 07/24/00 05/06/13 Pierre Arevalo MD PCP - General Internal Medicine 05/07/13 4 Gerson Dawson MD PCP - General Internal Medicine 01/30/14 03/20/14 [facility], [facility]cp PCP - General Internal Medicine 03/21/14 05/06/14 Coleman Mccarthy MD PCP - General Internal Medicine 05/07/14 07/18/16 Ayo Carpio MD [address] [place] [address] PCP - General Internal Medicine 07/19/16 01/05/17 Annalee Jones MD [address] [place] [address] PCP - General Internal Medicine 01/06/17 12/02/18 Yolande Nicholas, [address] [place] [address] PCP - General Internal Medicine 12/03/18 10/08/20 Anuj Priest DO [address] [place] [address] PCP - General Internal Medicine 10/09/20 06/16/21 [facility], [facility]cp PCP - General Internal Medicine 06/17/21 documented as of this encounter
--- OUTSIDE RECORDS SUMMARY | 2024-07-15 17:03 | XMS_ITS ---
Author Organization [facility] on Care Team Providers Care Automatic Equipment Technician Name Role Phone Vaishali Aguilar Unavailable Unavailable Noelle Edwards Unavailable Unavailable Valerie Wayne Unavailable Unavailable Allergies and adverse reactions No Known Allergies Care Team Name Role Address Phone Organization Dates Noelle Edwards PCP [address] [place] [address], [place], [address], [place] (Office[place] : [facility] 2020 - 02/20/2020 Vaishali Aguilar Attending Physician [address] [place] [address], [address], [place] (Office): : [facility] 2020 - 02/20/2020 Valerie Wayne Attending Physician [address] [place] [address] [place] [address], [address], [place] (Office): [facility] 2020 - 02/20/2020 Immunizations Immunization Status Vaccine Details Vaccine Code CodeSystem Date Notes Influenza completed Influenza, split virus, trivalent, injectable, contains preservative lotNumber: [id number] expiry: 10/28/2020 Mfg: Flucelavax Quadrivalent Given 0.5 ml Left Deltoid intramuscularly 141 CVX created date: 02/18/2020 consent date: 02/18/2020 administer ed date: 02/18/2020 Educated by Saray Saavedra on 02/18/2020 TB 2 Step Mantoux Skin Test completed tuberculin skin test; unspecified formulation lotNumber: [id number] expiry: 11/25/2021 Mfg: sanofi Pasteur limited Given [...] CodeSystem Concern Status 1 ANEMIA, UNSPECIFIED [address] active 2 BREAKDOWN (MECHANICAL) OF OTHER VASCULAR GRAFTS, INITIAL ENCOUNTER [address] active 3 CHRONIC KIDNEY DISEASE, STAGE 2 (MILD) [address] active 4 CHRONIC OBSTRUCTIVE PULMONARY DISEASE, UNSPECIFIED [address] active 5 COVID-[address] active 6 ENCOUNTER FOR SURGICAL AFTERCARE FOLLOWING SURGERY ON THE CIRCULATORY SYSTEM [address] active 7 ESSENTIAL (PRIMARY) HYPERTENSION [address] active 8 GENERALIZED ANXIETY DISORDER [address] active 9 MAJOR DEPRESSIVE DISORDER, RECURRENT, UNSPECIFIED [address] active 10 PAROXYSMAL ATRIAL FIBRILLATION [address] active 11 PERIPHERAL VASCULAR DISEASE, UNSPECIFIED [address] active Reason for Referral No Reasons for Referral Entered Social History Social History Observation Description Start Date End Date Code Code System Current Smoking Status Tobacco smoking consumption unknown 149363229 SNOMED CT Sex Assigned At Male 1945 93369-1 [facility] Vital Signs Code Code System Vitals Name Values and Units Timing Information 20580-8 [facility] Pain Level Value=1.0 02/20/2020 9279-1 [facility] Respiratory Rate Value=18.0 Units=/m in 02/20/2020 8462-4 [facility] Blood Pressure-Diastolic Value=60 Un its=mmHg 02/20/2020 8480-6 [facility] Blood Pressure-Systolic Ysbos=374 Un its=mmHg 02/20/2020 8310-5 [facility] Body Temperature Value=97.6 Units=?? F 02/20/2020 8867-4 [facility] Heart rate Value=73.0 Units=/min 87068-3 [facility] O2 % BldC Oximetry Value=96.0 Units= % 02/20/2020 15185-6 [facility] Weight Xkyjk=326.0 Units=Lbs 8302-2 [facility] Height Value=72.0 Units=Inches 02/12/2020
--- OUTSIDE RECORDS SUMMARY | 2024-07-15 17:03 | XMS_ITS | Encounter Summary ---
Author Organization [employer] Address [address] [facility] 7t [place] [address] Care Team Providers Care Maintenance Foreman Name Role Phone Sesar Pereyra MD Primary Care Provider [phone] Reason for Visit * Reason Onset Date Comments Med Refill 04/18/2024 Encounter Details Date Type Department Care Team ([facility] st Contact Info) Description 04/18/2024 Telephone [facility] MEDICINE [address] [place] [address] Sesar Pereyra MD [address] [place] [address] Med Refill Social History Tobacco Use Types [...] needing refill : To be sent to: [id number] - [place], [place] - [address] [place] [address] STEET documented in this encounter Plan of Treatment Upcoming Encounters Date Type Department Care Team (Late st Contact Info) Description 09/11/2024 10:30 AM EDT Office Visit [facility] MED & PEDS [address] [place] [address] Sesar Preeyra MD [address] [place] [address] documented as of this encounter Visit Diagnoses Not on filedocumented in this encounter Additional Health Concerns Assessment Noted Time PHQ-9 Depression Total Score: 16 024 10:59 AM EDT documented as of this encounter Care Teams Maintenance Foreman Relationship Specialty Start Date End Date Sesar Pereyra MD [address] [place] [address] PCP - General Internal Medicine 03/01/21 [facility] 03/22/24 documented as of this encounter
--- OUTSIDE RECORDS SUMMARY | 2024-07-15 17:03 | XMS_ITS | Encounter Summary ---
Author Organization [facility] Address [address] [place] [address] Care Team Providers Care Fire Chief'S Aide Name Role Phone Ghassan Burciaga MD Primary Care Provider Unavail able Pierre Arevalo MD Primary Care Provider Judy vailable Gerson Dawson MD Primary Care Provider Unavail able [facility], Pcp Primary Care Provider Unavailabl e [place] Mccarthy MD Primary Care Provider Unavaila Ayo Demarco MD Primary Care Provider [phone] Annalee Jones MD Primary Care Provider Un available Pascual Nicholasabela DO Primary Care Pro vider Unavailable Anuj Priest DO Primary Care Provider Judy vailable [facility], Pcp Primary Care Provider Unavailabl e Encounter Details Date Type Department Care Team Description 11/04/2006 Hospital Medical Records [address] [place], [place] [id number] [place] [address] Social History Tobacco Use Types Packs/Day Years [...] on filedocumented in this encounter Care Teams Fire Chief'S Aide Relationship Specialty Start Date End Date Ghassan Burciaga MD PCP - General 07/24/00 05/06/13 Pierre Arevalo MD PCP - General Internal Medicine 05/07/13 4 Gerson Dawson MD PCP - General Internal Medicine 01/30/14 03/20/14 [facility], Pcp PCP - General Internal Medicine 03/21/14 05/06/14 [place] Mccarthy MD PCP - General Internal Medicine 05/07/14 07/18/16 Ayo Carpio MD [address] [place], [place] [address] PCP - General Internal Medicine 07/19/16 01/05/17 Annalee Jones MD [address] [place], [place] [address] PCP - General Internal Medicine 01/06/17 12/02/18 Yolande Nicholas DO [address] [place] [address] PCP - General Internal Medicine 12/03/18 10/08/20 Anuj Priest DO [address] [place] [address] PCP - General Internal Medicine 10/09/20 06/16/21 [facility], Pcp PCP - General Internal Medicine 06/17/21 documented as of this encounter
--- OUTSIDE RECORDS SUMMARY | 2024-07-15 17:03 | XMS_ITS | Encounter Summary ---
Author Organization [facility] Address [address] [place] [address] Care Team Providers Care End Finder Twisting Department Name Role Phone Yolande Nicholas DO Primary Care Pro vider Unavailable Anuj Priest DO Primary Care Provider [facility], Pcp Primary Care Provider Unavailabl e Reason for Visit * Reason Onset Date Comments Faxed Refill 02/25/2020 Encounter Details Date Type Department Care Team Description 02/25/2020 Refill Adult Medicine [address] [address] Yolande Nicholas DO Faxed Refill Social History [...] - MEDICARE / Plan: MEDICARE FFS $5 [place] [id number] / Product Type: MEDICARE [id number] documented in this encounter Plan of Treatment Not on file documented as of this encounter Visit Diagnoses Not on filedocumented in this encounter Care Teams End Finder Twisting Department Relationship Specialty Start Date End Date Yolande Nicholas DO PCP - General Internal Medicine 12/03/18 10/08/20 Anuj Priest DO PCP - General Internal Medicine 10/09/[address] [place] [address], Pcp PCP - General Internal Medicine 06/17/21 documented as of this encounter
--- OUTSIDE RECORDS SUMMARY | 2024-07-15 17:03 | XMS_ITS | Encounter Summary ---
Author Organization [facility] Address [address] [place] [address] Care Team Providers Care Academic Counselor Name Role Phone Annalee Jones MD Primary Care Provider Un available Yolande Nicholas DO Primary Care Pro vider Unavailable Anuj Priest DO Primary Care Provider [facility], Pcp Primary Care Provider Unavailabl e Reason for Visit * Reason Onset Date Comments Prior Authorization 06/27/2018 sildenafil ( REVATIO) 20 MG tablet Encounter Details Date Type Department Care Team Description 06/27/2018 Telephone Adult [address] [address] Annalee Jones MD Prior Authorization (sildenafil (REVATIO) [...] thank you [place] [phone] Prior Auth [facility] Prior Authorizations Ext [phone] Fax: [phone] [place] [phone] Prior Auth pool * Telephone Encounter - Valerie Hagen - 07/05/2018 2:02 PM EST Dora from [place] appeals calling the medication is not approved by the FDA for this pt's diagnosis please return call [phone] * Telephone Encounter - Annalee Jones MD - 07/05/2018 11:22 AM EST Please obtain urology consultation report * Telephone Encounter - Maggi Sol M.A. - 07/05/2018 11:09 AM EST Ed meds are not covered by medicare, per pharmacy pt has been using discount card [place] [phone] Prior Auth [facility] Prior Authorizations Ext [phone] Fax: [phone] reply [place] to p [phone] Prior Auth pool * Telephone Encounter - Maggi Sol M.A. - 06/28/2018 4:24 PM EST Prior auth done via covermymeds sildenafil Dx erectile dysfunction Continuation of therapy, pt has been using a discount card * Telephone Encounter - Aarceli Martinez - 06/27/2018 10:26 AM EST Pre [...] What Pharmacy did the fax come from: [facility] fax #: [phone] [employer] Alliance Party Information from fax: What Prescription Plan does the patient have? BIN/PCN if applicable: N/A Cardholder ID:[id number] Person Code: N/A Relationship Code: N/A Help desk phone: [phone] documented in this encounter Plan of Treatment Not on file documented as of this encounter Visit Diagnoses Not on filedocumented in this encounter Care Teams Academic Counselor Relationship Specialty Start Date End Date Annalee Jones MD PCP - General Internal Medicine 01/06/17 9 Yolande Nicholas DO PCP - General Internal Medicine 12/03/18 10/08/20 Anuj Priest DO PCP - General Internal Medicine 10/09/20 2 [facility], Pcp PCP - General Internal Medicine 06/17/21 documented as of this encounter
--- OUTSIDE RECORDS SUMMARY | 2024-07-15 17:03 | XMS_ITS | Encounter Summary ---
Author Organization [facility] Address [address] [place] [address] Care Team Providers Care Comparative Sociology Professor Name Role Phone Yolande Nicholas DO Primary Care Pro vider Unavailable Anuj Priest DO Primary Care Provider [facility], Pcp Primary Care Provider Unavailabl e Reason for Visit * Reason Onset Date Comments Faxed Refill 06/06/2019 HYDROXYZINE Encounter Details Date Type Department Care Team Description 06/06/2019 Refill Adult Medicine [address] [address] Yolande Nicholas DO Faxed Refill (HYDROXYZINE ) [...] MEDICARE / Plan: MEDICARE FFS $5 [facility] [id number] / Product Type: MEDICARE [id number] documented in this encounter Plan of Treatment Not on file documented as of this encounter Visit Diagnoses Not on filedocumented in this encounter Care Teams Comparative Sociology Professor Relationship Specialty Start Date End Date Yolande Nicholas DO PCP - General Internal Medicine 12/03/18 10/08/20 Anuj Priest DO PCP - General Internal Medicine 10/09/[address] [place] [address], Pcp PCP - General Internal Medicine 06/17/21 documented as of this encounter
--- OUTSIDE RECORDS SUMMARY | 2024-07-15 17:03 | XMS_ITS | Encounter Summary ---
Author Organization [facility] Address [address] [place] [address] Care Team Providers Care Co Supervisor Grounds And Landscape Name Role Phone Annalee Jones MD Primary Care Provider Un available Yolande Nicholas DO Primary Care Pro vider Unavailable Anuj Priest DO Primary Care Provider Judy vailable [facility], Pcp Primary Care Provider Unavailabl e Encounter Details Date Type Department Care Team Description 08/01/2018 Transfer Records Medical Records [address] [place] [address] Abstract, Provider Social History Tobacco Use Types [...] on filedocumented in this encounter Care Teams Co Supervisor Grounds And Landscape Relationship Specialty Start Date End Date Annalee Jones MD PCP - General Internal Medicine 01/06/17 9 Yolande Nicholas DO PCP - General Internal Medicine 12/03/18 10/08/20 Anuj Priest DO PCP - General Internal Medicine 10/09/20 2 [facility], Pcp PCP - General Internal Medicine 06/17/21 documented as of this encounter
--- OUTSIDE RECORDS SUMMARY | 2024-07-15 17:03 | XMS_ITS | Encounter Summary ---
Author Organization [facility] Address [address] [place] [address] Care Team Providers Care Cylinder Batcher Name Role Phone Yolande Nicholas DO Primary Care Pro vider Unavailable Anuj Priest DO Primary Care Provider [facility], Pcp Primary Care Provider Unavailabl e Reason for Visit * Reason Onset Date Comments Cigar Packer And Picker Feedback 02/18/[address] Encounter Details Date Type Department Care Team Description 02/18/2019 Telephone Adult [address] [address] Yolande Nicholas DO Cigar Packer And Picker Feedback (Low Dose CT) Social History Tobacco [...] on filedocumented in this encounter Care Teams Cylinder Batcher Relationship Specialty Start Date End Date Yolande Nicholas DO PCP - General Internal Medicine 12/03/18 10/08/20 Anuj Priest DO PCP - General Internal Medicine 10/09/20 2 [facility], Pcp PCP - General Internal Medicine 06/17/21 documented as of this encounter
--- OUTSIDE RECORDS SUMMARY | 2024-07-15 17:03 | XMS_ITS | Encounter Summary ---
Author Organization [facility] Address [address] [place] [address] Care Team Providers Care Side Stitching Machine Operator Name Role Phone Yolande Nicholas DO Primary Care Pro vider Unavailable Anuj Priest DO Primary Care Provider [facility], Pcp Primary Care Provider Unavailabl e Reason for Visit * Reason Onset Date Comments Faxed Order 03/22/2020 Encounter Details Date Type Department Care Team Description 03/22/2020 Telephone Adult [address] [address] Yolande Nicholas DO Faxed Order Social History [...] review, sign, date, and fax back to [phone] * Telephone Encounter - Gerri Parra - 03/22/2020 12:47 PM EST [facility] IS FAXING ORDERS TO BE SIGN AND FAX BACK TO [phone]. documented in this encounter Plan of Treatment Not on file documented as of this encounter Visit Diagnoses Not on filedocumented in this encounter Care Teams Side Stitching Machine Operator Relationship Specialty Start Date End Date Yolande Nicholas DO PCP - General Internal Medicine 12/03/18 10/08/20 Anuj Priest DO PCP - General Internal Medicine 10/09/20 2 [facility], Pcp PCP - General Internal Medicine 06/17/21 documented as of this encounter
--- OUTSIDE RECORDS SUMMARY | 2024-07-15 17:03 | XMS_ITS | Encounter Summary ---
Author Organization [facility] Address [address] [place] [address] Care Team Providers Care Senior Front End Engineer Name Role Phone Ghassan Burciaga MD Primary Care Provider Unavail able Pierre Arevalo MD Primary Care Provider Judy vailable Gerson Dawson MD Primary Care Provider Unavail able [facility], Pcp Primary Care Provider Unavailabl e [place] Mccarthy MD Primary Care Provider Unavaila Ayo Demarco MD Primary Care Provider [phone] Annalee Jones MD Primary Care Provider Un available Pascual Nicholasabela DO Primary Care Pro vider Unavailable Anuj Priest DO Primary Care Provider Judy vailable [facility], Pcp Primary Care Provider Unavailabl e Encounter Details Date Type Department Care Team Description 09/17/2010 Manager Bench Report Medical Records [address] [place] [address] Jayshree Meade Social History Tobacco Use Types [...] filedocumented in this encounter Care Teams Senior Front End Engineer Relationship Specialty Start Date End Date Ghassan Burciaga MD PCP - General 07/24/00 05/06/13 Pierre Arevalo MD PCP - General Internal Medicine 05/07/13 4 Gerson Dawson MD PCP - General Internal Medicine 01/30/14 03/20/14 [facility], Pcp PCP - General Internal Medicine 03/21/14 05/06/14 [place] Mccarthy MD PCP - General Internal Medicine 05/07/14 07/18/16 Ayo Carpio MD [address] [place] [address] PCP - General Internal Medicine 07/19/16 01/05/17 Annalee Jones MD [address] [place] [address] PCP - General Internal Medicine 01/06/17 12/02/18 Yolande Nicholas DO [address] [place] [address] PCP - General Internal Medicine 12/03/18 10/08/20 Anuj Priest DO [address] [place] [address] PCP - General Internal Medicine 10/09/20 06/16/21 [facility], Pcp PCP - General Internal Medicine 06/17/21 documented as of this encounter
--- OUTSIDE RECORDS SUMMARY | 2024-07-15 17:03 | XMS_ITS | Encounter Summary ---
Author Organization [facility] Address [address] [place] [address] Care Team Providers Care Golf Course Mechanic Name Role Phone Yolande Nicholas DO Primary Care Pro vider Unavailable Anuj Priest DO Primary Care Provider [facility], Pcp Primary Care Provider Unavailabl e Reason for Visit * Reason Onset Date Comments Provider Call Back 04/29/2019 Encounter Details Date Type Department Care Team Description 04/29/2019 Telephone Adult [address] [address] Yolande Nicholas DO Provider Call Back Social [...] EST Im not aware of any in [place] * Telephone Encounter - Minerva Kan R.N. - 04/29/2019 3:[address] Yolande Gomez Are you aware of a detox in [facility] ? * Telephone Encounter - Lonny Lazarus - 04/29/2019 1:15 PM EST Patient relapsed for alcohol abuse 3 days ago and requests to speak to Dr. Yolande Gomez or her team. Patient states that he does want to get better. The patient says Dr. Alvarez mentioned a rehab facility in [place] last time, but he cannot remember the address, phone number, or name of the facility. documented in this encounter Plan of Treatment Not on file documented as of this encounter Visit Diagnoses Not on filedocumented in this encounter Care Teams Golf Course Mechanic Relationship Specialty Start Date End Date Yolande Nicholas DO PCP - General Internal Medicine 12/03/18 10/08/20 Anuj Priest DO PCP - General Internal Medicine 10/09/[address] [place] [address], Pcp PCP - General Internal Medicine 06/17/21 documented as of this encounter
--- OUTSIDE RECORDS SUMMARY | 2024-07-15 17:03 | XMS_ITS | Encounter Summary ---
Author Organization [facility] Address [address] [place] [address] Care Team Providers Care Counseling Case Manager Name Role Phone Yolande Nicholas DO Primary Care Pro vider Unavailable Anuj Priest DO Primary Care Provider [facility], Pcp Primary Care Provider Unavailabl e Reason for Visit * Reason Onset Date Comments Faxed Order 06/17/2020 Encounter Details Date Type Department Care Team Description 06/17/2020 Telephone Adult [address] [address] Yolande Nicholas DO Faxed Order Social History [...] - 06/17/2020 8:44 AM EST Orders from [facility] to be signed and faxed back to [phone] . documented in this encounter Plan of Treatment Not on file documented as of this encounter Visit Diagnoses Not on filedocumented in this encounter Care Teams Counseling Case Manager Relationship Specialty Start Date End Date Yolande Nicholas DO PCP - General Internal Medicine 12/03/18 10/08/20 Anuj Priest DO PCP - General Internal Medicine 10/09/20 2 [facility], Pcp PCP - General Internal Medicine 06/17/21 documented as of this encounter
--- OUTSIDE RECORDS SUMMARY | 2024-07-15 17:03 | XMS_ITS | Encounter Summary ---
Author Organization [facility] Address [address] [place] [address] Care Team Providers Care Lumpia Wrapper Maker Name Role Phone Yolande Nicholas DO Primary Care Pro vider Unavailable Anuj Priest DO Primary Care Provider [facility], Pcp Primary Care Provider Unavailabl e Reason for Visit * Reason Onset Date Comments Faxed Order 03/29/2020 Encounter Details Date Type Department Care Team Description 03/29/2020 Telephone Adult [address] [address] Yolande Nicholas DO Faxed Order Social History [...] TO BE SIGN AND FAX BACK TO [phone]. documented in this encounter Plan of Treatment Not on file documented as of this encounter Visit Diagnoses Not on filedocumented in this encounter Care Teams Lumpia Wrapper Maker Relationship Specialty Start Date End Date Yolande Nicholas DO PCP - General Internal Medicine 12/03/18 10/08/20 Anuj Priest DO PCP - General Internal Medicine 10/09/20 2 [facility], Pcp PCP - General Internal Medicine 06/17/21 documented as of this encounter
--- OUTSIDE RECORDS SUMMARY | 2024-07-15 17:03 | XMS_ITS | Encounter Summary ---
Author Organization [facility] Address [address] [place] [address] Care Team Providers Care Airplane Pilot Photogrammetry Name Role Phone Annalee Jones MD Primary Care Provider Un available Yolande Nicholas DO Primary Care Pro vider Unavailable Anuj Priest DO Primary Care Provider Judy vailable [facility], Pcp Primary Care Provider Unavailabl e Encounter Details Date Type Department Care Team Description 04/24/2018 Hospital Medical Records [address] [place] [address] Thomas Moise MD Social History Tobacco Use [...] on filedocumented in this encounter Care Teams Airplane Pilot Photogrammetry Relationship Specialty Start Date End Date Annalee Jones MD PCP - General Internal Medicine 01/06/17 9 Yolande Nicholas DO PCP - General Internal Medicine 12/03/18 10/08/20 Anuj Priest DO PCP - General Internal Medicine 10/09/20 2 [facility], Pcp PCP - General Internal Medicine 06/17/21 documented as of this encounter
--- OUTSIDE RECORDS SUMMARY | 2024-07-15 17:03 | XMS_ITS | Encounter Summary ---
Author Organization [employer] Address [address] [facility] 7[address] [place] [address] Care Team Providers Care Experimental Psychologist Name Role Phone Sesar Pereyra MD Primary Care Provider [phone] Reason for Visit * Reason Comments Med Refill Encounter Details Date Type Department Care Team ([facility] Contact Info) Description 10/19/2022 Refill [facility] MED & PEDS [address] [place] [address] Sesar Pereyra MD [address] [place] [address] Social History Tobacco Use Types Packs/Day Years [...] Encounters Date Type Department Care Team ([facility] Contact Info) Description 09/11/2024 10:30 AM EDT Office Visit [facility] MED & PEDS [address] [place] [address] Sesar Pereyra MD [address] [place] [address] documented as of this encounter Visit Diagnoses Not on filedocumented in this encounter Care Teams Experimental Psychologist Relationship Specialty Start Date End Date Sesar Pereyra MD [address] [place] [address] PCP - General Internal Medicine 03/01/21 [facility] 03/22/24 documented as of this encounter
--- OUTSIDE RECORDS SUMMARY | 2024-07-15 17:03 | XMS_ITS | Encounter Summary ---
Author Organization [employer] Address [address] [facility] 7t [place] [address] Care Team Providers Care Real Estate Clerk Name Role Phone Sesar Pereyra MD Primary Care Provider [phone]- [phone] Reason for Visit * Reason Onset Date Comments Lab Orders 05/30/2024 Referral 05/30/2024 Encounter Details Date Type Department Care Team (Late st Contact Info) Description 05/30/2024 Telephone [facility] MEDICINE [address] [place] [address] Sesar Pereyra MD [address] [place] [address] Lab Orders; Referral Social History Tobacco Use [...] [facility] [address] [place] [address] Sesar Pereyra MD [address] [place] [address] documented as of this encounter Visit Diagnoses Not on filedocumented in this encounter Additional Health Concerns Assessment Noted Time PHQ-9 Depression Total Score: 16 024 10:59 AM EDT documented as of this encounter Care Teams Real Estate Clerk Relationship Specialty Start Date End Date Sesar Pereyra MD [address] [place] [address] PCP - General Internal Medicine 03/01/21 [facility] 03/22/24 documented as of this encounter
--- OUTSIDE RECORDS SUMMARY | 2024-07-15 17:03 | XMS_ITS | Clinical Summary ---
Author Organization [facility] Address [address] [place] [address] Care Team Providers Care Ppa Teacher Name Role Phone Nuha Galvin PA-C Primary Care Provider [phone] Source Comments PLEASE NOTE, if this patient [...] Date Sleep disorder 02/02/2015 Overview (02/02/2015): Saw [facility] and sleep on 01/15/2015: Dr. Johnson [...] once a year. In remission Seen at [facility] urology Depression with anxiety 04/01/2014 Overview (04/01/2014): Dr. Pradhan at [facility]. Is going to establish care at a new facility. PVD (peripheral vascular dis ease) with claudication ([facility]) 04/01/2014 Overview (07/04/2014): Fem-Fem done by Dr. Hensley in 2006. Sees this doctor once a year at [facility]. Follows up with this facility every 6 months. 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
--- OUTSIDE RECORDS SUMMARY | 2024-07-15 17:03 | XMS_ITS | Encounter Summary ---
Author Organization [employer] Address 75 [facility] 7 [place] [address] Care Team Providers Care Core Feeder Name Role Phone Sesar Pereyra MD Primary Care Provider [phone]- [phone] Reason for Visit * Reason Comments Med Refill Encounter Details Date Type Department Care Team ([facility] Contact Info) Description 06/10/2022 Refill [facility] MED & PEDS [address] [place] [address] Sesar Pereyra MD [address] [place] [address] Primary insomnia Social History Tobacco Use Types [...] Upcoming Encounters Date Type Department Care Team ([facility] Contact Info) Description 09/11/2024 10:30 AM EDT Office Visit [facility] MED & PEDS [address] [place] [address] Sesar Pereyra MD [address] [place] [address] documented as of this encounter Visit Diagnoses Diagnosis Primary insomnia Persistent disorder of initiating or maintaining sleep documented in this encounter Care Teams Core Feeder Relationship Specialty Start Date End Date Sesar Pereyra MD [address] [place] [address] PCP - General Internal Medicine 03/01/21 [facility] 03/22/24 documented as of this encounter
--- OUTSIDE RECORDS SUMMARY | 2024-07-15 17:03 | XMS_ITS | Encounter Summary ---
Author Organization [employer] Address [address] [facility] 7t [place] [address] Care Team Providers Care Sales Team Recruiter Name Role Phone Sesar Pereyra MD Primary Care Provider [phone]- [phone] Reason for Visit * Reason Onset Date Comments fyi 05/28/2024 Encounter Details Date Type Department Care Team ([facility] st Contact Info) Description 05/28/2024 Telephone [facility] MEDICINE [address] [place] [address] Sesar Pereyra MD [address] [place] [address] fy Social History Tobacco Use Types Packs/Day [...] - 05/28/2024 9:37 AM EST Tc from [facility] with [facility] Care informing pt verbalized to her that he been taking THD Gummies 2x a day morning and afternoon. Gummies are 10mg per gummy as he's aware of what he's taking. documented in this encounter Plan of Treatment Upcoming Encounters Date Type Department Care Team ([facility] st Contact Info) Description 09/11/2024 10:30 AM EDT Office Visit [facility] MED & PEDS [address] [place] [address] Sesar Pereyra MD [address] [place] [address] documented as of this encounter Visit Diagnoses Not on filedocumented in this encounter Additional Health Concerns Assessment Noted Time PHQ-9 Depression Total Score: 16 024 10:59 AM EDT documented as of this encounter Care Teams Sales Team Recruiter Relationship Specialty Start Date End Date Sesar Pereyra MD [address] [place] [address] PCP - General Internal Medicine 03/01/21 [facility] 03/22/24 documented as of this encounter
--- OUTSIDE RECORDS SUMMARY | 2024-07-15 17:03 | XMS_ITS | Encounter Summary ---
Author Organization [facility] Address [address] [place] [address] Care Team Providers Care Configuration Management Architect Name Role Phone Yolande Nicholas DO Primary Care Pro vider Unavailable Anuj Priest DO Primary Care Provider [facility], Pcp Primary Care [facility] Encounter Details Date Type Department Care Team Description 03/13/2020 Pt. Non Urgent Medic al Question Adult Medicine [address] [address] Yolande Nicholas DO Social History Tobacco Use [...] on filedocumented in this encounter Care Teams Configuration Management Architect Relationship Specialty Start Date End Date Yolande Nicholas DO PCP - General Internal Medicine 12/03/18 10/08/20 Anuj Priest DO PCP - General Internal Medicine 10/09/20 2 [facility], Pcp PCP - General Internal Medicine 06/17/21 documented as of this encounter
--- OUTSIDE RECORDS SUMMARY | 2024-07-15 17:03 | XMS_ITS | Encounter Summary ---
Author Organization [employer] Address 75 [facility] 7t [place] [address] Care Team Providers Care Life Science Research Assistant Name Role Phone Sesar Pereyra MD Primary Care Provider [phone]- [phone] Reason for Visit * Reason Onset Date Comments Referral 01/02/2024 Encounter Details Date Type Department Care Team ([facility] st Contact Info) Description 01/02/2024 Telephone [facility] MEDICINE [address] [place] [address] Sesar Pereyra MD [address] [place] [address] Referral Social History Tobacco Use Types Packs/Day [...] - 01/02/2024 10:48 AM EDT Tc from [place] the patients [facility] requesting a referral for a gerontologist and would like to be sent to at [facility] [place] [facility] [place] documented in this encounter Plan of Treatment Upcoming Encounters Date Type Department Care Team (Late st Contact Info) Description 09/11/2024 10:30 AM EDT Office Visit [facility] MED & PEDS [address] [place] [address] Sesar Pereyra MD [address] [place] [address] documented as of this encounter Visit Diagnoses Not on filedocumented in this encounter Additional Health Concerns Assessment Noted Time PHQ-9 Depression Total Score: 16 024 10:59 AM EDT documented as of this encounter Care Teams Life Science Research Assistant Relationship Specialty Start Date End Date Sesar Pereyra MD [address] [place], [place] [address] [address] PCP - General Internal Medicine 03/01/21 [facility] 03/22/24 documented as of this encounter
--- OUTSIDE RECORDS SUMMARY | 2024-07-15 17:03 | XMS_ITS | Encounter Summary ---
Author Organization [facility] Address [address] [place] [address] Care Team Providers Care Molding Supervisor Name Role Phone Yolande Nicholas DO Primary Care Pro vider Unavailable Anuj Priest DO Primary Care Provider [facility], Pcp Primary Care Provider Unavailabl e Reason for Visit * Reason Onset Date Comments Faxed Order 03/07/2020 Encounter Details Date Type Department Care Team Description 03/07/[address] [address] Yolande Nicholas DO Faxed Order Social History [...] TO BE SIGN AND FAX BACK TO [phone]. documented in this encounter Plan of Treatment Not on file documented as of this encounter Visit Diagnoses Not on filedocumented in this encounter Care Teams Molding Supervisor Relationship Specialty Start Date End Date Yolande Nicholas DO PCP - General Internal Medicine 12/03/18 10/08/20 Anuj Priest DO PCP - General Internal Medicine 10/09/[address] [place] [address], Pcp PCP - General Internal Medicine 06/17/21 documented as of this encounter
--- OUTSIDE RECORDS SUMMARY | 2024-07-15 17:03 | XMS_ITS | Encounter Summary ---
Author Organization [facility] Address [address] [place] [address] Care Team Providers Care Cosmetics Demonstrator Name Role Phone Yolande Nicholas DO Primary Care Pro vider Unavailable Anuj Priest DO Primary Care Provider [facility], Pcp Primary Care Provider Unavailabl e Reason for Visit * Reason Onset Date Comments Faxed Order 03/03/2020 Encounter Details Date Type Department Care Team Description 03/03/2020 Telephone Adult [address] [address] Yolande Nicholas DO Faxed Order Social History [...] on filedocumented in this encounter Care Teams Cosmetics Demonstrator Relationship Specialty Start Date End Date Yolande Nicholas DO PCP - General Internal Medicine 12/03/18 10/08/20 Anuj Priest DO PCP - General Internal Medicine 10/09/[address] [place] [address], Pcp PCP - General Internal Medicine 06/17/21 documented as of this encounter
--- OUTSIDE RECORDS SUMMARY | 2024-07-15 17:03 | XMS_ITS | Encounter Summary ---
Author Organization [employer] Address [address] [facility] [address] [place] [address] Care Team Providers Care Damper Maker Name Role Phone Sesar Pereyra MD Primary Care Provider [phone]- [phone] Reason for Referral * Consultation (Routine) - Closed Specialty Diagnoses / Procedures Referred By Contac t Referred To Contact Geriatric Medicine Diagnoses Memory disturbance Sesar Pereyra MD [address] [place] [address] Phone: tel: fax: [facility] [address] [place] [address] Phone: tel: fax: Referral ID Status Reason Start Date Expiration Date V isits Requested Visits Authorized [id number] Closed Specialty Services Required 01/11/2024 01/10/2025 1 1 Encounter Details Date Type Department Care Team (Late st Contact Info) Description 01/11/2024 Orders Only [facility] CHC MED & PEDS [address] [place], [place] [phone] Sesar Pereyra MD [address] [place], [place] [phone] Memory disturbance (Primary Dx) Social History Tobacco [...] [facility] [address] [place] [address] Sesar Pereyra MD [address] [place] [address] Scheduled Referrals Name Type Priority Associated Diagnoses Orde r Schedule Referral to Geriatrics Outpatient Referral Routine Memory disturbance Expected: 01/11/2024 (Approximate), Expires: 01/10/2025 documented as of this encounter Visit Diagnoses Diagnosis Memory disturbance- Primary Memory loss documented in this encounter Additional Health Concerns Assessment Noted Time PHQ-9 Depression Total Score: 16 024 10:59 AM EDT documented as of this encounter Care Teams Damper Maker Relationship Specialty Start Date End Date Sesar Pereyra MD [address] [place] [address] PCP - General Internal Medicine 03/01/21 [facility] 03/[facility] documented as of this encounter
--- OUTSIDE RECORDS SUMMARY | 2024-07-15 17:03 | XMS_ITS | Encounter Summary ---
Author Organization [employer] Address [address] [facility] 7 [place] [address] Care Team Providers Care Medical Equipment Repair Technician Name Role Phone Sesar Pereyra MD Primary Care Provider +1- [phone] Encounter Details Date Type Department Care Team ([facility] Contact Info) Description 10/13/2022 Orders Only [facility] MED & PEDS [address] [place] [address] Sesar Pereyra MD [address] [place] [address] Social History Tobacco Use Types Packs/Day Years [...] 09/11/2024 10:30 AM EDT Office Visit [facility] MED & PEDS [address] [place] [address] Sesar Pereyra MD [address] [place] [address] documented as of this encounter Visit Diagnoses Not on filedocumented in this encounter Care Teams Medical Equipment Repair Technician Relationship Specialty Start Date End Date Sesar Pereyra MD [address] [place] [address] PCP - General Internal Medicine 03/01/[address] [facility] 03/22/24 documented as of this encounter
--- OUTSIDE RECORDS SUMMARY | 2024-07-15 17:03 | XMS_ITS | Encounter Summary ---
Author Organization [employer] Address [address] [facility] 7t [place] [address] Care Team Providers Care Tire Layer Name Role Phone Sesar Pereyra MD Primary Care Provider [phone]- [phone] Encounter Details Date Type Department Care Team ([facility] st Contact Info) Description 11/01/2023 Orders Only [facility] CHC MED & PEDS [address] [place], [place] [phone] Sesar Pereyra MD [address] [place] [address] Social History Tobacco Use Types Packs/Day Years [...] [facility] MED & PEDS [address] [place] [address] Sesar Pereyra MD [address] [place] [address] documented as of this encounter Visit Diagnoses Not on filedocumented in this encounter Additional Health Concerns Assessment Noted Time PHQ-9 Depression Total Score: 16 024 10:59 AM EDT documented as of this encounter Care Teams Tire Layer Relationship Specialty Start Date End Date Sesar Pereyra MD [address] [place] [address] PCP - General Internal Medicine 03/01/21 [facility] 03/[facility] documented as of this encounter
--- OUTSIDE RECORDS SUMMARY | 2024-07-15 17:03 | XMS_ITS | Encounter Summary ---
Author Organization [employer] Address [address] [facility] 7t [place] [address] Care Team Providers Care Dump Attendant Name Role Phone Sesar Pereyra MD Primary Care Provider +1- [phone] Reason for Visit * Reason Comments Med Refill Encounter Details Date Type Department Care Team ([facility] st Contact Info) Description 10/30/2023 Refill [facility] CHC MED & PEDS [address] [place], [place] [phone] Sesar Pereyra MD [address] [place] [address] PVD (peripheral vascular disease) (CMS/HCC); Longstanding persistent [...] [facility] [address] [place] [address] Sesar Pereyra MD [address] [place] [address] documented as of this encounter Visit Diagnoses Diagnosis PVD (peripheral vascular disease) (CMS/HCC) Unspecified peripheral vascular disease Longstanding persistent atrial fibrillation (CMS/HCC) documented in this encounter Additional Health Concerns Assessment Noted Time PHQ-9 Depression Total Score: 16 024 10:59 AM EDT documented as of this encounter Care Teams Dump Attendant Relationship Specialty Start Date End Date Sesar Pereyra MD [address] [place] [address] PCP - General Internal Medicine 03/01/21 [facility] 03/22/24 documented as of this encounter
--- OUTSIDE RECORDS SUMMARY | 2024-07-15 17:03 | XMS_ITS | Encounter Summary ---
Author Organization [employer] [facility] Address [address] [place] [address] Care Team Providers Care Director Center Name Role Phone Ghassan Burciaga MD Primary Care Provider Unavail able Pierre Arevalo MD Primary Care Provider Judy vailable Gerson Dawson MD Primary Care Provider Unavail able [facility], Pcp Primary Care Provider Unavailabl Coleman Sampson MD Primary Care Provider Unavaila Ayo Demarco MD Primary Care Provider [phone] Annalee Jones MD Primary Care Provider Un available Pascual Nicholasabela DO Primary Care Pro vider Unavailable Anuj Priest DO Primary Care Provider Judy vailable [facility], Pcp Primary Care Provider Unavailabl e Encounter Details Date Type Department Care Team Description 10/12/2009 Controlled Substance Contract with [facility] Medical Records [address] [place] [address] Abstract, Provider Social History Tobacco Use Types [...] filedocumented in this encounter Care Teams Director Center Relationship Specialty Start Date End Date Ghassan Burciaga MD PCP - General 07/24/00 05/06/13 Pierre Arevalo MD PCP - General Internal Medicine 05/07/13 4 Gerson Dawson MD PCP - General Internal Medicine 01/30/14 03/20/14 [facility], Pcp PCP - General Internal Medicine 03/21/14 05/06/14 Coleman Mccarthy MD PCP - General Internal Medicine 05/07/14 07/18/16 Ayo Carpio MD [address] [place] [address] PCP - General Internal Medicine 07/19/16 01/05/17 Annalee Jones MD [address] [place] [address] PCP - General Internal Medicine 01/06/17 12/02/18 Yolande iNcholas DO [address] [place] [address] PCP - General Internal Medicine 12/03/18 10/08/20 Anuj Priest DO [address] [place] [address] PCP - General Internal Medicine 10/09/20 06/16/21 [facility], Pcp PCP - General Internal Medicine 06/17/21 documented as of this encounter
--- OUTSIDE RECORDS SUMMARY | 2024-07-15 17:03 | XMS_ITS | Encounter Summary ---
Author Organization [employer] Address 75 [facility] 7t [place] [address] Care Team Providers Care Wheel Blocker Name Role Phone Sesar Pereyra MD Primary Care Provider [phone]- [phone] Reason for Visit * Reason Comments Med Refill Encounter Details Date Type Department Care Team ([facility] st Contact Info) Description 08/29/2023 Refill [facility] MEDICINE [address] [place] [address] Sesar Pereyra MD [address] [place] [address] Social History Tobacco Use Types Packs/Day Years [...] [facility] MED & PEDS [address] [place] [address] Sesar Pereyra MD [address] [place] [address] documented as of this encounter Visit Diagnoses Not on filedocumented in this encounter Additional Health Concerns Assessment Noted Time PHQ-9 Depression Total Score: 16 024 10:59 AM EDT documented as of this encounter Care Teams Wheel Blocker Relationship Specialty Start Date End Date Sesar Pereyra MD [address] [place] [address] PCP - General Internal Medicine 03/01/21 [facility] 03/22/24 documented as of this encounter
--- OUTSIDE RECORDS SUMMARY | 2024-07-15 17:03 | XMS_ITS | Encounter Summary ---
Author Organization [employer] Address [address] [facility] 7t [place] [address] Care Team Providers Care Manager Continuous Improvement Name Role Phone Sesar Pereyra MD Primary Care Provider [phone]- [phone] Encounter Details Date Type Department Care Team (Late st Contact Info) Description 05/30/2024 Telephone [facility] MEDICINE [address] [place] [address] Sesar Pereyra MD [address] [place] [address] Social History Tobacco Use Types Packs/Day Years [...] [facility] MED & PEDS [address] [place] [address] Sesar Pereyra MD [address] [place] [address] documented as of this encounter Visit Diagnoses Not on filedocumented in this encounter Additional Health Concerns Assessment Noted Time PHQ-9 Depression Total Score: 16 024 10:59 AM EDT documented as of this encounter Care Teams Manager Continuous Improvement Relationship Specialty Start Date End Date Sesar Pereyra MD [address] [place] [address] PCP - General Internal Medicine 03/01[facility]21 [facility] documented as of this encounter
--- OUTSIDE RECORDS SUMMARY | 2024-07-15 17:03 | XMS_ITS | Encounter Summary ---
Author Organization [employer] Address [address] [facility] 7t [place] [address] Care Team Providers Care Night Auditor Name Role Phone Sesar Pereyra MD Primary Care Provider [phone] Reason for Visit * Reason Comments Med Refill Encounter Details Date Type Department Care Team ([facility] Contact Info) Description 10/26/2022 Refill [facility] MED & PEDS [address] [place] [address] Sesar Pereyra MD [address] [place] [address] Social History Tobacco Use Types Packs/Day Years [...] Encounters Date Type Department Care Team ([facility] Contact Info) Description 09/11/2024 10:30 AM EDT Office Visit [facility] MED & PEDS [address] [place] [address] Sesar Pereyra MD [address] [place] [address] documented as of this encounter Visit Diagnoses Not on filedocumented in this encounter Care Teams Night Auditor Relationship Specialty Start Date End Date Sesar Pereyra MD [address] [place] [address] PCP - General Internal Medicine 03/01/21 [facility] 03/22/24 documented as of this encounter
--- OUTSIDE RECORDS SUMMARY | 2024-07-15 17:03 | XMS_ITS | Encounter Summary ---
Author Organization [facility] Address [address] [place] [address] Care Team Providers Care Vice President Of Manufacturing Name Role Phone Yolande Nicholas DO Primary Care Pro vider Unavailable Anuj Priest DO Primary Care Provider Judy Gardner, Pcp Primary Care Provider Unavailabl e Encounter Details Date Type Department Care Team Description 04/13/2020 Stonework Supervisor Report Medical Records [address] [place] [address] Abstract, Provider Social History Tobacco Use Types [...] on filedocumented in this encounter Care Teams Vice President Of Manufacturing Relationship Specialty Start Date End Date Yolande Nicholas DO PCP - General Internal Medicine 12/03/18 10/08/20 Anuj Priest DO PCP - General Internal Medicine 10/09/20 2 [facility], Pcp PCP - General Internal Medicine 06/17/21 documented as of this encounter
== END 2024-07-15 15:48 | disposition home or self-care (01) ==
PROVIDERS: PCP Internal Medicine; Visit Provider Physician Assistant
DX: S42.143A Displaced fracture of glenoid cavity of scapula, unspecified shoulder, initial encounter for closed fracture (principal); S42.153A Displaced fracture of neck of scapula, unspecified shoulder, initial encounter for closed fracture; S42.102A Fracture of unspecified part of scapula, left shoulder, initial encounter for closed fracture; S42.309A Unspecified fracture of shaft of humerus, unspecified arm, initial encounter for closed fracture; S43.005A Unspecified dislocation of left shoulder joint, initial encounter
CPT/HCPCS: 99024

== ENCOUNTER 2024-07-15 14:58 | Outpatient (REF) | payer MEDICARE, MEDICAID, SELFPAY ==
--- NOTE | ~2024-07-15 | XR_ITS ---
EXAMINATION: XR CLAVICLE LEFT, XR CLAVICLE RIGHT HISTORY: S42.009A - Fracture of unspecified part of unspecified clavicle, initial... COMPARISON: Comparison is made with the prior examination of the right clavicle dated 05/20/2024 and the prior examination of the left shoulder dated 07/05/2024. FINDINGS: Two views of each clavicle are submitted. Osseous mineralization is normal. On the right, there is a healing oblique fracture of the distal clavicle. The fracture line remains visible, but is blurred when compared to the prior study. There is greater callus formation noted. The left clavicle is intact. The previously seen nondisplaced fracture of the superior glenoid is less well visualized. There is mild narrowing of the left AC joint. The right AC joint is maintained. The soft tissues are unremarkable. XR/XR clavicle RT IMPRESSION: Healing oblique fracture of the distal right clavicle. Healing nondisplaced fracture of the left superior glenoid. Electronically signed by: Anuj Hendrickson MD 07/16/2024 08:24 AM EDT
--- NOTE | ~2024-07-15 | XR_ITS ---
EXAMINATION: XR CLAVICLE LEFT, XR CLAVICLE RIGHT HISTORY: S42.009A - Fracture of unspecified part of unspecified clavicle, initial... COMPARISON: Comparison is made with the prior examination of the right clavicle dated 05/20/2024 and the prior examination of the left shoulder dated 07/05/2024. FINDINGS: Two views of each clavicle are submitted. Osseous mineralization is normal. On the right, there is a healing oblique fracture of the distal clavicle. The fracture line remains visible, but is blurred when compared to the prior study. There is greater callus formation noted. The left clavicle is intact. The previously seen nondisplaced fracture of the superior glenoid is less well visualized. There is mild narrowing of the left AC joint. The right AC joint is maintained. The soft tissues are unremarkable. XR/XR clavicle LT IMPRESSION: Healing oblique fracture of the distal right clavicle. Healing nondisplaced fracture of the left superior glenoid. Electronically signed by: Anuj Hendrickson MD 07/16/2024 08:24 AM EDT
== END 2024-07-15 14:59 | disposition home or self-care (01) ==
LOC: HO.HOSX 14:58
PROVIDERS: Visit Provider Physician Assistant
DX: S42.034D Nondisplaced fracture of lateral end of right clavicle, subsequent encounter for fracture with routine healing (principal); S42.102D Fracture of unspecified part of scapula, left shoulder, subsequent encounter for fracture with routine healing; S42.302D Unspecified fracture of shaft of humerus, left arm, subsequent encounter for fracture with routine healing; S43.005D Unspecified dislocation of left shoulder joint, subsequent encounter
CPT/HCPCS: 73000; 99212

== ENCOUNTER → 2024-07-15 15:02 | Outpatient (BNV) | payer MEDICARE, MEDICAID, SELFPAY | PROVIDERS: Visit Provider Radiology Diagnostic Radiology | DX: S42.031D Displaced fracture of lateral end of right clavicle, subsequent encounter for fracture with routine healing (principal); S42.145D Nondisplaced fracture of glenoid cavity of scapula, left shoulder, subsequent encounter for fracture with routine healing | CPT/HCPCS: 73000 ==

== ENCOUNTER 2024-07-24 15:28 | Outpatient (REF) | payer MEDICARE, MEDICAID, SELFPAY ==
[2024-07-24 18:27] LABS: MANUAL DIFF FLAG NO
[2024-07-24 18:31] LABS: Basophils Absolute Auto 0.1 X10*3/uL (0.0-0.2); Basophils Percent Auto 0.5 % (0-2); Eosinophils Absolute Auto 0.1 X10*3/uL (0.0-0.4); Eosinophils Percent Auto 1.2 % (0-4); Hematocrit 42.7 % (42.0-52.0); Hemoglobin 13.9 g/dl (14.0-18.0); Imm Gran Abs Auto 0.03 X10*3/uL (0.00-0.03); Imm Gran Pct Auto 0.3 % (0.0-0.4); Lymphocytes Percent Auto 10.8 % (20-40); Mean Corpuscular HGB Conc 32.6 g/dl (31.0-36.0); Mean Corpuscular Hemoglobin 30.5 pg (27.0-33.0); Mean Corpuscular Volume 93.8 fL (80.0-98.0); Mean Platelet Volume 9.6 fL (9.4-12.4); Monocytes Absolute Auto 0.8 X10*3/uL (0.1-1.2); Monocytes Percent Auto 8.9 % (2-11); Neutrophils Absolute Auto 7.4 x10*3/uL (2.0-8.3); Neutrophils Percent Auto 78.3 % (45-73); Platelet Count 314 X10*3/uL (160-400); Red Blood Count 4.55 X10*6/uL (4.60-5.80); White Blood Count 9.4 X10*3/uL (4.8-10.8)
== END 2024-07-24 15:29 | disposition home or self-care (01) ==
LOC: HO.CHCLDS 15:28
PROVIDERS: Visit Provider Internal Medicine
DX: J18.9 Pneumonia, unspecified organism (principal)
CPT/HCPCS: 36415; 85025

== ENCOUNTER 2024-08-01 08:22 | Outpatient (REF) | payer MEDICARE, MEDICAID, SELFPAY ==
--- NOTE | ~2024-08-01 | XR_ITS ---
EXAMINATION: XR SHOULDER, LEFT CLINICAL INFORMATION: M25.519 - Pain in unspecified shoulder COMPARISON: July 15, 2024. TECHNIQUE: AP external rotation, Grashey, scapular Y, and axillary views of the left shoulder. FINDINGS: Degenerative changes in the greater tuberosity and humeral head junction. Bone marrow inhomogeneity. No acute cortical disruption or malalignment. Subchondral cyst formation and irregularity involving the glenoid of the scapula. XR/XR shoulder LT min 2V IMPRESSION: Concerning calcium metabolic disorder versus lymphoproliferative disorder versus malignancy. Degenerative changes without acute fracture or dislocation. Electronically signed by: Kalin Quezada MD 08/02/2024 08:11 AM EDT
--- NOTE | ~2024-08-01 | XR_ITS ---
EXAMINATION: XR CHEST CLINICAL INFORMATION: To be done in 2 weeks. COMPARISON: July 11, 2024. TECHNIQUE: 2 views of the chest were obtained. FINDINGS: Pulmonary reticular pattern. Mild prominence of the interstitial markings in the perihilar regions. No gross consolidation. No pneumothorax. Haziness in the left lower thorax. Cardiomediastinal silhouette size is normal. Mild to moderate multilevel thoracic spondylosis no fully evaluated due to patient's body habitus. XR/XR chest 2V IMPRESSION: Overall improved aeration. Consider mild interstitial lung edema in the correct clinical settings with questionable left-sided pleural effusion the possibility of resulting multifocal pneumonia should be considered.. Electronically signed by: Kalin Quezada MD 08/01/2024 11:24 AM EDT
--- OUTSIDE RECORDS SUMMARY | 2024-08-01 08:26 | XMS_ITS | Encounter Summary ---
Author Organization [employer] Address [address] [facility] [address] [place] [address] Care Team Providers Care Brokerage Clerk Name Role Phone Sesar Pereyra MD Primary Care Provider [phone] Reason for Visit * Reason Comments Med Refill Encounter Details Date Type Department Care Team ([facility] Contact Info) Description 10/26/2022 Refill [facility] & [facility]EDS [address] [place] [address] Sesar Pereyra MD [address] [place] [address] Social History Tobacco Use Types Packs/Day Years [...] Upcoming Encounters Date Type Department Care Team ([facility] Contact Info) Description 09/11/2024 10:30 AM EDT Office Visit [facility] [address] [place] [address] Sesar Pereyra MD [address] [place] [address] documented as of this encounter Visit Diagnoses Not on filedocumented in this encounter Care Teams Brokerage Clerk Relationship Specialty Start Date End Date Sesar Pereyra MD [address] [place] [address] PCP - General Internal Medicine 03/01/21 [facility] 03/22/24 documented as of this encounter
--- OUTSIDE RECORDS SUMMARY | 2024-08-01 08:26 | XMS_ITS | Encounter Summary ---
Author Organization [employer] Address [address] [facility] 7 [place] [address] Care Team Providers Care Inspector Repairer Sandstone Name Role Phone Sesar Pereyra MD Primary Care Provider [phone]- [phone] Encounter Details Date Type Department Care Team ([facility] Contact Info) Description 10/13/2022 Orders Only [facility] & [facility]EDS [address] [place] [address] Sesar Pereyra MD [address] [place] [address] Social History Tobacco Use Types Packs/Day Years [...] [facility] [address] [place] [address] Sesar Pereyra MD [address] [place] [address] documented as of this encounter Visit Diagnoses Not on filedocumented in this encounter Care Teams Inspector Repairer Sandstone Relationship Specialty Start Date End Date Sesar Pereyra MD [address] [place] [address] PCP - General Internal Medicine 03/01/21 [facility] 03/22/24 documented as of this encounter
--- OUTSIDE RECORDS SUMMARY | 2024-08-01 08:26 | XMS_ITS | Encounter Summary ---
Author Organization [employer] Address [address] [facility] [address] [place] [address] Care Team Providers Care Personal Care Worker Name Role Phone Sesar Pereyra MD Primary Care Provider [phone]- [phone] Reason for Visit * Reason Onset Date Comments Med Refill 04/02/2024 Encounter Details Date Type Department Care Team ([facility] st Contact Info) Description 04/02/2024 Telephone [facility] [address] [place] [address] Sesar Pereyra MD [address] [place] [address] Med Refill Social History Tobacco Use Types [...] 9:39 AM EST Medication was sent to [id number] on 04/01/24 #30 with 11 refills. * Telephone Encounter - Miri Young - 04/02/2024 9:33 AM EST TC from pt requesting medication refill. Medications needing refill : metoprolol tartrate (Lopressor) 25 MG tablet To be sent to: [facility] documented in this encounter Plan of Treatment Upcoming Encounters Date Type Department Care Team (Late st Contact Info) Description 09/11/2024 10:30 AM EDT Office Visit [facility] & [facility]EDS [address] [place] [address] Sesar Pereyra MD [address] [place] [address] documented as of this encounter Visit Diagnoses Not on filedocumented in this encounter Additional Health Concerns Assessment Noted Time PHQ-9 Depression Total Score: 16 024 10:59 AM EDT documented as of this encounter Care Teams Personal Care Worker Relationship Specialty Start Date End Date Sesar Pereyra MD [address] [place] [address] PCP - General Internal Medicine 03/01/21 [facility] 03/22/24 documented as of this encounter
--- OUTSIDE RECORDS SUMMARY | 2024-08-01 08:26 | XMS_ITS | Encounter Summary ---
Author Organization [employer] Address [address] [facility] [address] [place] [address] Care Team Providers Care Nut Blanker Operator Name Role Phone Sesar Pereyra MD Primary Care Provider [phone]- [phone] Encounter Details Date Type Department Care Team ([facility] st Contact Info) Description 04/01/2024 Orders Only [facility] [address] [place], [place] [id number] Sesar Pereyra MD [address] [place] [address] Essential hypertension (Primary Dx) Social History Tobacco [...] 10:30 AM EDT Office Visit [facility] [address] [place] [address] Sesar Pereyra MD [address] [place] [address] documented as of this encounter Visit Diagnoses Diagnosis Essential hypertension- Primary Unspecified essential hypertension documented in this encounter Additional Health Concerns Assessment Noted Time PHQ-9 Depression Total Score: 16 024 10:59 AM EDT documented as of this encounter Care Teams Nut Blanker Operator Relationship Specialty Start Date End Date Sesar Pereyra MD [address] [place] [address] PCP - General Internal Medicine 03/01/21 [facility] documented as of this encounter
--- OUTSIDE RECORDS SUMMARY | 2024-08-01 08:26 | XMS_ITS | Encounter Summary ---
Author Organization [employer] Address [address] [facility] [address] [place] [address] Care Team Providers Care Assessment Counselor Name Role Phone Sesar Pereyra MD Primary Care Provider [phone]- [phone] Reason for Visit * Reason Onset Date Comments Med Refill 04/26/2024 Encounter Details Date Type Department Care Team ([facility] st Contact Info) Description 04/26/[address] [facility] [address] [place] [address] Sesar Pereyra MD [address] [place] [address] Med Refill Social History Tobacco Use Types [...] 7.5 MG tablet To be sent to: [id number] - [place], [place] - [address] [address] [address] documented in this encounter Plan of Treatment Upcoming Encounters Date Type Department Care Team (Late st Contact Info) Description 09/11/2024 10:30 AM EDT Office Visit [facility] MED & PEDS [address] [place] [address] Sesar Pereyra MD [address] [place] [address] documented as of this encounter Visit Diagnoses Not on filedocumented in this encounter Additional Health Concerns Assessment Noted Time PHQ-9 Depression Total Score: 16 024 10:59 AM EDT documented as of this encounter Care Teams Assessment Counselor Relationship Specialty Start Date End Date Sesar Pereyra MD [address] [place] [address] PCP - General Internal Medicine 03/01/21 [facility] 03/22/24 documented as of this encounter
--- OUTSIDE RECORDS SUMMARY | 2024-08-01 08:26 | XMS_ITS | Encounter Summary ---
Author Organization [employer] Address [address] [facility] [address] [place] [address] Care Team Providers Care Financial Institution President Name Role Phone Sesar Pereyra MD Primary Care Provider [phone] Encounter Details Date Type Department Care Team (Late st Contact Info) Description 04/02/2024 Orders Only [facility] [address] [place] [address] Provider, MD Jazmyn Social History Tobacco Use [...] Description 09/11/2024 10:30 AM EDT Office Visit [facility] [address] [place] [address] Sesar Pereyra MD [address] [place] [address] documented as of this encounter Procedures Procedure [...] as of this encounter Care Teams Financial Institution President Relationship Specialty Start Date End Date Sesar Pereyra MD [address] [place] [address] PCP - General Internal Medicine 03/01/21 [facility] documented as of this encounter
--- OUTSIDE RECORDS SUMMARY | 2024-08-01 08:26 | XMS_ITS | Clinical Summary ---
Author Organization Unknown Care Team Providers Care Web Applications Architect Name Role Phone MARCO RAMIREZ, POOJA Unavailable Unavailabl harpal JIMENEZ PT, COURTNEY Unavailable Unavailable SHERYL FIRST ASSISTANT, JANETT Unavailable Unavailable LESLYE RN, DAGOBERTO Unavailable Unavailab abraham CARRION MISDRAW HAND, ANTONIO Unavailable Unavailable READING OT, JOANIE Unavailable Unavailable CHANEY PLANER OFF BEARER, TIA Unavailable Unavailable Payers Payer Name Policy Type Policy Number Effective Date Expira tion Date [facility] [id number] Problems Condition Name Condition Details Condition Category Status Onset Date Resolution Date Last Treatment Date Treating Clinician Comments FX L SHOULDER GIRDLE, PART UNSP, SUBS FOR FX W ROUTN HEAL Active 07-18 00:00: 00 PNEUMONIA, UNSPECIFIED ORGANISM Active 07-18 00:00: 00 UNSPECIFIED ATRIAL FLUTTER Active 2023-05 00:00: 00 SUPRAVENTRIC ULAR TACHYCARDIA, UNSPECIFIED Active 2023-05 00:00: 00 DISP FX OF SHAFT OF RIGHT CLAVICLE, SUBS FOR FX W ROUTN HEAL Active 2023-05 00:00: 00 HYPERTENSIVE CHRONIC KIDNEY DISEASE W STG 1-4/UNSP CHR KDNY Active 2023-05 00:00: 00 CHRONIC KIDNEY DISEASE, STAGE 3 UNSPECIFIED Active 2023-05 00:00: 00 UNSPECIFIED ATRIAL FIBRILLATION Active 05-01 00:00: 00 ACUTE KIDNEY FAILURE, UNSPECIFIED Active 2023-05 00:00: 00 EMPHYSEMA, UNSPECIFIED Active 2023-05 00:00: 00 POLYNEUROPAT HY, UNSPECIFIED Active 05-01 00:00: 00 SPONDYLOSIS W/O MYELOPATHY OR RADICULOPATH Y, CERVICAL REGION Active 2023-05 00:00: 00 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 05-01 00:00: 00 MIXED HYPERLIPIDEM IA Active 05-01 00:00: 00 UNSPECIFIED MOOD [AFFECTIVE] DISORDER Active 05-01 00:00: 00 DVRTCLOS OF INTEST, PART UNSP, 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 05-01 00:00: 00 BENIGN PROSTATIC HYPERPLASIA WITHOUT LOWER URINRY TRACT SYMP Active 05-01 00:00: 00 HISTORY OF FALLING Active 2023-05 00:00: 00 CLINICAL TECHNOLOGIST (CURRENT) USE OF ANTICOAGULAN TS Active 2023-05 00:00: 00 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 Active 05-01 00:00: 00 PERSONAL HISTORY OF OTHER MALIGNANT NEOPLASM OF KIDNEY Active 05-01 00:00: 00 FRACTURE OF LEFT SHOULDER GIRDLE, PART UNSP, INIT Active 06-29 00:00: 00 Allergies, Adverse Reactions, Alerts Allergy [...] 2023-05 00:00: 00 05-16 23:59 :00 No [id number] PAIN 15 mg EVERY 6 HOURS NEEDED 15 mg EVERY 6 HOURS NEEDED (route: oral) Med Classific ation: Analgesic , Anti-infl ammatory or Antipyret ic clonazepam 0.5 mg tablet 2023-05 00:00: 00 Yes [id number] ANXIETY 0.5 mg 2 TIMES DAILY 0.5 mg 2 TIMES DAILY (route: oral) Med Classific ation: Central Nervous System Agents lisinopril 40 mg tablet 2023-05 00:00: 00 03-21 23:59 :00 No [id number] CAD 40 mg DAILY 40 mg DAILY (route: oral) Med Classific ation: Cardiovas cular Therapy Agents atorvastati n 80 mg tablet 2023-05 00:00: 00 Yes [id number] HYPERTENSIO N 80 mg DAILY 80 mg DAILY (route: oral) Med Classific ation: Cardiovas cular Therapy Agents cilostazol 50 mg tablet 2023-05 00:00: 00 Yes [id number] HYPERTENSIO N 50 mg 2 TIMES DAILY 50 mg 2 TIMES DAILY (route: oral) Med Classific ation: Hematolog ical Agents clopidogrel 75 mg tablet 2023-05 00:00: 00 03-21 23:59 :00 No [id number] CORONARY ARTERY DISEASE 75 mg DAILY 75 mg DAILY (route: oral) Med Classific ation: Hematolog ical Agents Eliquis 5 mg tablet 2023-05 00:00: 00 Yes [id number] ANTI ARRHYTHMIC 5 mg 2 TIMES DAILY 5 mg 2 TIMES DAILY (route: oral) Med Classific ation: Hematolog ical Agents furosemide 40 mg tablet 2023-05 00:00: 00 03-21 23:59 :00 No [id number] BPH 40 mg DAILY 40 mg DAILY (route: oral) Alternate Route: INTRA-MUS CULAR. Med Classific ation: Cardiovas cular Therapy Agents metoprolol tartrate 50 mg tablet 2023-05 00:00: 00 03-22 23:59 :00 No [id number] CAD 50 mg DAILY 50 mg DAILY (route: oral) Med Classific ation: Cardiovas cular Therapy Agents quetiapine 25 mg tablet 2023-05 00:00: 00 Yes [id number] MOOD STABILIZER 25 mg 2 TIMES DAILY 25 mg 2 TIMES DAILY (route: oral) Med Classific ation: Central Nervous System Agents sertraline 50 mg tablet 2023-05 00:00: 00 Yes [id number] MOOD STABILIZER 50 mg DAILY 50 mg DAILY (route: oral) Med Classific ation: Central Nervous System Agents tamsulosin 0.4 mg capsule 2023-05 00:00: 00 Yes [id number] BPH 0.4 mg DAILY 0.4 mg DAILY (route: oral) Med Classific ation: Genitouri nary Therapy docusate sodium 100 mg tablet 2023-05 00:00: 00 Yes [id number] CONSTIPATIO N 100 mg DAILY 100 mg DAILY (route: oral) Med Classific ation: Gastroint estinal Therapy Agents gabapentin 100 mg capsule 2023-05 00:00: 00 Yes [id number] PAIN 1-3 capsule BEDTIME 1-3 capsule BEDTIME (route: oral) Med Classific ation: Central Nervous System Agents metoprolol tartrate 25 mg tablet 2023-05 00:00: 00 03-27 16:09 :43.1 53 No [id number] HYPERTENSIO N 25 mg 2 TIMES DAILY 25 mg 2 TIMES DAILY (route: oral) Med Classific ation: Cardiovas cular Therapy Agents Multaq 400 mg tablet 2023-05 00:00: 00 Yes [id number] ANTIARRHYTH MICHAEL 400 mg 2 TIMES DAILY 400 mg 2 TIMES DAILY (route: oral) Med Classific ation: Cardiovas cular Therapy Agents furosemide 40 mg tablet 2023-05 00:00: 00 Yes [id number] edema 1 tablet DAILY 1 tablet DAILY (route: oral) Med Classific ation: Cardiovas cular Therapy Agents dextroamphe tamine-amph etamine 7.5 mg tablet 2023-05 00:00: 00 Yes [id number] attention 1 tablet DAILY 1 tablet DAILY (route: oral) Med Classific ation: Central Nervous System Agents metoprolol tartrate 25 mg tablet 2023-05 00:00: 00 06-27 23:59 :00 No [id number] heart rate 0.5 tablet 2 TIMES DAILY 0.5 tablet 2 TIMES DAILY (route: oral) Med Classific ation: Cardiovas cular Therapy Agents cephalexin 500 mg capsule 2023-05 00:00: 00 04-10 23:59 :00 No [id number] CELLULITIS LLL 500 mg 4 TIMES DAILY 500 mg 4 TIMES DAILY (route: oral) Med Classific ation: Anti-Infe ctive Agents hydralazine 25 mg tablet 2023-05 00:00: 00 Yes [id number] HTN 25 mg 2 TIMES DAILY 25 mg 2 TIMES DAILY (route: oral) Med Classific ation: Cardiovas cular Therapy Agents melatonin 3 mg tablet 06-27 00:00: 00 Yes [id number] INSOMNIA 1 tablet BEDTIME 1 tablet BEDTIME (route: oral) Med Classific ation: Central Nervous System Agents metoprolol tartrate 25 mg tablet 06-27 00:00: 00 Yes [id number] HTN 1 tablet DAILY 1 tablet DAILY (route: oral) Med Classific ation: Cardiovas cular Therapy Agents oxycodone 5 mg tablet 06-27 00:00: 00 Yes [id number] PAIN 1 tablet EVERY 8 HOURS 1 tablet EVERY 8 HOURS (route: oral) Med Classific ation: Analgesic , Anti-infl ammatory or Antipyret ic polyethylen e glycol 3350 17 gram/dose oral powder 06-27 00:00: 00 Yes [id number] CONSTIPATIO N 17 gram BEDTIME 17 gram BEDTIME (route: oral) Med Classific ation: Gastroint estinal Therapy Agents Tylenol 8 Hour 650 mg tablet,exte nded release 06-27 00:00: 00 Yes [id number] PAIN/FEVER 1 tablet EVERY 6 HOURS 1 tablet EVERY 6 HOURS (route: oral) Med Classific ation: Analgesic , Anti-infl ammatory or Antipyret ic albuterol sulfate HFA 90 mcg/actuati on aerosol inhaler 07-14 00:00: 00 Yes [id number] SHORTNESS OF BREATH 2 puff EVERY 4 HOURS 2 puff EVERY 4 HOURS (route: inhalation ) Med Classific ation: Respirato ry Therapy Agents azithromyci n 500 mg tablet 07-14 00:00: 00 Yes [id number] TREATS PNEUMONIA 500 mg DAILY 500 mg DAILY (route: oral) Med Classific ation: Anti-Infe ctive Agents cefuroxime axetil 500 mg tablet 07-14 00:00: 00 Yes [id number] ANTIBIOTIC TREATS PNEUMONIA 500 mg DAILY 500 mg DAILY (route: oral) Med Classific ation: Anti-Infe ctive Agents Vital Signs Vital Name Observation Time Observation Value Commen ts Temperature 2024-07-30 13:57:00.000 98.5 [degF] Temperature 2024-07-29 11:42:00.000 96.8 [degF] Temperature 2024-07-23 10:27:00.000 97.7 [degF] Temperature 2024-07-22 12:36:00.000 95.2 [degF] Pulse 2024-07-30 13:57:00.000 64 /min Pulse 2024-07-29 11:42:00.000 64 /min Pulse 2024-07-23 10:27:00.000 80 /min Pulse 2024-07-22 09:39:00.000 63 /min O2 Saturation (%) 2024-07-30 13:57:00.000 97 % O2 Saturation (%) 2024-07-29 12:52:00.000 97 % O2 Saturation (%) 2024-07-29 11:42:00.000 96 % O2 Saturation (%) 2024-07-23 10:27:00.000 93 % Respirations 2024-07-30 13:57:00.000 18 /min Respirations 2024-07-29 11:42:00.000 18 /min Respirations 2024-07-23 10:27:00.000 18 /min Respirations 2024-07-22 09:39:00.000 18 /min Weight (lbs) 2024-07-22 10:16:00.000 240.2 [lb_av] Systolic Blood Pressure 2024-07-30 13:57:00.000 122 mm [Hg] Systolic Blood Pressure 2024-07-29 11:42:00.000 150 mm [Hg] Systolic Blood Pressure 2024-07-23 10:27:00.000 120 mm [Hg] Systolic Blood Pressure 2024-07-22 09:58:00.000 120 mm [Hg] Diastolic Blood Pressure 2024-07-30 13:57:00.000 60 mm [Hg] Diastolic Blood Pressure 2024-07-29 11:42:00.000 85 mm [Hg] Diastolic Blood Pressure 2024-07-23 10:27:00.000 66 mm [Hg] Diastolic Blood Pressure 2024-07-22 09:58:00.000 70 mm [Hg] Plan of Treatment Planned Activity Planned Date Details Comments Future Scheduled Test RN TO OBSE RVE, ASSESS, EVALUATE, AND DEVELOP AN INDIVIDUALIZED PLAN OF CARE. AGENCY MAY ACCEPT ORDERS FROM CONSULTING PHYSICIANS. RN TO OBSERVE AND ASSESS, PLANER OFF BEARER/ELIGIBILITY CLERK TO OBSERVE FOR RISK FOR FALLS AND INSTRUCT IN FALL PREVENTION, HOME SAFETY, MEDICATION MANAGEMENT, INFECTION PREVENTION, AND NUTRITION MANAGEMENT. RN/PLANER OFF BEARER/ELIGIBILITY CLERK NURSE MAY PERFORM O2 SATURATION LEVEL ON ADMISSION AND PRN FOR RN TO ASSESS/PLANER OFF BEARER TO OBSERVE PATIENT, WITH NOTIFICATION TO THE PHYSICIAN IF SATURATION IS 90% IN THE ABSENCE OF MORE SPECIFIC PARAMETERS FROM THE PHYSICIAN. AGENCY MAY PERFORM A RESUMPTION OF CARE VISIT FOLLOWING ANY HOSPITAL ADMISSION. RN/PLANER OFF BEARER/ELIGIBILITY CLERK TO MONITOR CO-MORBID CONDITIONS LISTED ON THE PLAN OF CARE AND ANY NEW CONDITIONS THAT PRESENT THEMSELVES DURING THIS EPISODE TO IDENTIFY CHANGES AND INTERVENE TO MINIMIZE COMPLICATIONS. [code = RN TO OBSERVE, ASSESS, EVALUATE, AND DEVELOP AN INDIVIDUALIZED PLAN OF CARE. AGENCY MAY ACCEPT ORDERS FROM CONSULTING PHYSICIANS. RN TO OBSERVE AND ASSESS, PLANER OFF BEARER/ELIGIBILITY CLERK TO OBSERVE FOR RISK FOR FALLS AND INSTRUCT IN FALL PREVENTION, HOME SAFETY, MEDICATION MANAGEMENT, INFECTION PREVENTION, AND NUTRITION MANAGEMENT. RN/PLANER OFF BEARER/ELIGIBILITY CLERK NURSE MAY PERFORM O2 SATURATION LEVEL ON ADMISSION AND PRN FOR RN TO ASSESS/PLANER OFF BEARER TO OBSERVE PATIENT, WITH NOTIFICATION TO THE PHYSICIAN IF SATURATION IS 90% IN THE ABSENCE OF MORE SPECIFIC PARAMETERS FROM THE PHYSICIAN. AGENCY MAY PERFORM A RESUMPTION OF CARE VISIT FOLLOWING ANY HOSPITAL ADMISSION. RN/PLANER OFF BEARER/ELIGIBILITY CLERK TO MONITOR CO-MORBID CONDITIONS LISTED ON THE PLAN OF CARE AND ANY NEW CONDITIONS THAT PRESENT THEMSELVES DURING THIS EPISODE TO IDENTIFY CHANGES AND INTERVENE TO MINIMIZE COMPLICATIONS.] Future Scheduled Test MEDICATION MANAGEMENT; RN/PLANER OFF BEARER/ELIGIBILITY CLERK TO REVIEW MEDICATIONS FOR INTERACTIONS, EFFECTIVENESS OF DRUG THERAPY, AND SIGNS/SYMPTOMS OF ADVERSE REACTIONS. MAY INSTRUCT AND REINFORCE MEDICATION TEACHING RELATED TO THE USE OF MEDICATIONS, DOSAGE, FREQUENCY, PURPOSE, SIDE EFFECTS, AND TO REPORT COMPLICATIONS. [code = MEDICATION MANAGEMENT; RN/PLANER OFF BEARER/ELIGIBILITY CLERK TO REVIEW MEDICATIONS FOR INTERACTIONS, EFFECTIVENESS OF DRUG THERAPY, AND SIGNS/SYMPTOMS OF ADVERSE REACTIONS. MAY INSTRUCT AND REINFORCE MEDICATION TEACHING RELATED TO THE USE OF MEDICATIONS, DOSAGE, FREQUENCY, PURPOSE, SIDE EFFECTS, AND TO REPORT COMPLICATIONS.] Future Scheduled Test RISK FOR H OSPITALIZATION; RN TO ASSESS/TEACH, ELIGIBILITY CLERK/PLANER OFF BEARER TO OBSERVE/TEACH PATIENT/CAREGIVER ON RISK FOR HOSPITALIZATION/EMERGENCY ROOM VISITS, TEACH SIGNS AND SYMPTOMS THAT PUT PATIENT AT RISK, WHEN TO NOTIFY NURSE/PHYSICIAN OF COMPLICATIONS/DECLINE, AND WHEN TO CALL 911. [code = RISK FOR HOSPITALIZATION; RN TO ASSESS/TEACH, ELIGIBILITY CLERK/PLANER OFF BEARER TO OBSERVE/TEACH PATIENT/CAREGIVER ON RISK FOR HOSPITALIZATION/EMERGENCY ROOM VISITS, TEACH SIGNS AND SYMPTOMS THAT PUT PATIENT AT RISK, WHEN TO NOTIFY NURSE/PHYSICIAN OF COMPLICATIONS/DECLINE, AND WHEN TO CALL 911.] Future Scheduled Test CARDIOVASC ULAR SYSTEM; RN TO ASSESS/TEACH, PLANER OFF BEARER/ELIGIBILITY CLERK TO OBSERVE/TEACH RELATED TO ALTERED CARDIOVASCULAR STATUS TO MINIMIZE COMPLICATIONS AND REDUCE HOSPITALIZATION. [code = CARDIOVASCULAR SYSTEM; RN TO ASSESS/TEACH, PLANER OFF BEARER/ELIGIBILITY CLERK TO OBSERVE/TEACH RELATED TO ALTERED CARDIOVASCULAR STATUS TO MINIMIZE COMPLICATIONS AND REDUCE HOSPITALIZATION.] Future Scheduled Test HYPERTENSI ON MANAGEMENT; RN TO ASSESS AND TEACH, PLANER OFF BEARER/ELIGIBILITY CLERK TO OBSERVE AND TEACH WARNING SIGNS AND SYMPTOMS TO AVOID HOSPITALIZATION. [code = HYPERTENSION MANAGEMENT; RN TO ASSESS AND TEACH, PLANER OFF BEARER/ELIGIBILITY CLERK TO OBSERVE AND TEACH WARNING SIGNS AND SYMPTOMS TO AVOID HOSPITALIZATION.] Future Scheduled Test ARRHYTHMIA MANAGEMENT; RN TO ASSESS AND TEACH, PLANER OFF BEARER/ELIGIBILITY CLERK TO OBSERVE AND TEACH WARNING SIGNS AND SYMPTOMS TO AVOID HOSPITALIZATION. [code = ARRHYTHMIA MANAGEMENT; RN TO ASSESS AND TEACH, PLANER OFF BEARER/ELIGIBILITY CLERK TO OBSERVE AND TEACH WARNING SIGNS AND SYMPTOMS TO AVOID HOSPITALIZATION.] Future Scheduled Test PAIN MANAG EMENT; RN TO ASSESS AND TEACH, ELIGIBILITY CLERK/PLANER OFF BEARER TO OBSERVE AND TEACH AND PROVIDE EDUCATION ON PAIN MANAGEMENT TECHNIQUES. [code = PAIN MANAGEMENT; RN TO ASSESS AND TEACH, ELIGIBILITY CLERK/PLANER OFF BEARER TO OBSERVE AND TEACH AND PROVIDE EDUCATION ON PAIN MANAGEMENT TECHNIQUES.] Future Scheduled Test FALL REDUC TION MANAGEMENT; RN TO ASSESS AND OBSERVE, PLANER OFF BEARER/ELIGIBILITY CLERK TO OBSERVE FALL RISK FACTORS AND EDUCATE PATIENT/CAREGIVER ON STRATEGIES TO MINIMIZE THE RISK OF FALLING. [code = FALL REDUCTION MANAGEMENT; RN TO ASSESS AND OBSERVE, PLANER OFF BEARER/ELIGIBILITY CLERK TO OBSERVE FALL RISK FACTORS AND EDUCATE PATIENT/CAREGIVER ON STRATEGIES TO MINIMIZE THE RISK OF FALLING.] Future Scheduled Test RESPIRATOR Y SYSTEM MANAGEMENT; RN TO ASSESS AND TEACH, PLANER OFF BEARER/ELIGIBILITY CLERK TO OBSERVE AND TEACH RELATED TO ALTERED RESPIRATORY STATUS TO MINIMIZE COMPLICATIONS AND REDUCE HOSPITALIZATION. [code = RESPIRATORY SYSTEM MANAGEMENT; RN TO ASSESS AND TEACH, PLANER OFF BEARER/ELIGIBILITY CLERK TO OBSERVE AND TEACH RELATED TO ALTERED RESPIRATORY STATUS TO MINIMIZE COMPLICATIONS AND REDUCE HOSPITALIZATION.] Future Scheduled Test PNEUMONIA MANAGEMENT; RN TO ASSESS AND TEACH, PLANER OFF BEARER/ELIGIBILITY CLERK TO OBSERVE AND TEACH SIGNS OF PNEUMONIA EXACERBATION AND PROVIDE EARLY INTERVENTIONS TO MINIMIZE RISK OF HOSPITALIZATION. [code = PNEUMONIA MANAGEMENT; RN TO ASSESS AND TEACH, PLANER OFF BEARER/ELIGIBILITY CLERK TO OBSERVE AND TEACH SIGNS OF PNEUMONIA EXACERBATION AND PROVIDE EARLY INTERVENTIONS TO MINIMIZE RISK OF HOSPITALIZATION.] Future Scheduled Test PHYSICAL T HERAPIST TO EVALUATE FOR STRENGTHENING AND EDUCATION [code = PHYSICAL THERAPIST TO EVALUATE FOR STRENGTHENING AND EDUCATION ] Future Scheduled Test OCCUPATION AL THERAPIST TO EVALUATE FOR ADLS AND EDUCATION [code = OCCUPATIONAL THERAPIST TO EVALUATE FOR ADLS AND EDUCATION ] Future Scheduled Test AGENCY MAY PERFORM A RESUMPTION OF CARE VISIT FOLLOWING ANY HOSPITAL ADMISSION. OT TO EVALUATE, OBSERVE / ASSESS, AND MONITOR, FERNY TO OBSERVE AND MONITOR, PROVIDE SKILLED THERAPEUTIC INTERVENTION, ACTIVITY, EDUCATION, AND TRAINING TO ADDRESS; DRESSING (OT/HIDE MILL MAN) ACTIVITIES OF DAILY LIVING (OT/FERNY) MEAL PREPARATION AND CLEANUP (OT/FERNY) LAUNDRY MANAGEMENT (OT/HIDE MILL MAN) TOILET TRANSFER (OT/FERNY) BATH/SHOWER TRANSFER (OT/FERNY) OT/HIDE MILL MAN TO MONITOR AND EDUCATE ON OXYGEN SATURATION DURING ADLS/IADLS, NOTIFY PHYSICIAN AND/OR THE RN CLINICAL COMMUNICATION SPECIALIST FOR PHYSICIAN NOTIFICATION AND IF O2 SATS BELOW 90% AFTER 10 MIN OF REST. OT/HIDE MILL MAN MAY EDUCATE ON PAIN MANAGEMENT CLINICALLY INDICATED. OT / FERNY TO IDENTIFY FALL RISK FACTORS; EDUCATE THE PATIENT/CAREGIVER ON WAYS TO REDUCE FALL RISK FACTORS AND ESTABLISH HOME EXERCISE PROGRAM TO MINIMIZE FALL RISK. MAY TEACH THE PATIENT FLOOR RECOVERY WHEN CLINICALLY APPROPRIATE. OT/HIDE MILL MAN TO EDUCATE ON PNEUMONIA / ASPIRATION PNEUMONIA SELF-MANAGEMENT. [code = AGENCY MAY PERFORM A RESUMPTION OF CARE VISIT FOLLOWING ANY HOSPITAL ADMISSION. OT TO EVALUATE, OBSERVE / ASSESS, AND MONITOR, HIDE MILL MAN TO OBSERVE AND MONITOR, PROVIDE SKILLED THERAPEUTIC INTERVENTION, ACTIVITY, EDUCATION, AND TRAINING TO ADDRESS; DRESSING (OT/FERNY) ACTIVITIES OF DAILY LIVING (OT/FERNY) MEAL PREPARATION AND CLEANUP (OT/HIDE MILL MAN) LAUNDRY MANAGEMENT (OT/FERNY) TOILET TRANSFER (OT/FERNY) BATH/SHOWER TRANSFER (OT/FERNY) OT/FERNY TO MONITOR AND EDUCATE ON OXYGEN SATURATION DURING ADLS/IADLS, NOTIFY PHYSICIAN AND/OR THE RN CLINICAL COMMUNICATION SPECIALIST FOR PHYSICIAN NOTIFICATION AND IF O2 SATS BELOW 90% AFTER 10 MIN OF REST. OT/FERNY MAY EDUCATE ON PAIN MANAGEMENT CLINICALLY INDICATED. OT / FERNY TO IDENTIFY FALL RISK FACTORS; EDUCATE THE PATIENT/CAREGIVER ON WAYS TO REDUCE FALL RISK FACTORS AND ESTABLISH HOME EXERCISE PROGRAM TO MINIMIZE FALL RISK. MAY TEACH THE PATIENT FLOOR RECOVERY WHEN CLINICALLY APPROPRIATE. OT/FERNY TO EDUCATE ON PNEUMONIA / ASPIRATION PNEUMONIA SELF-MANAGEMENT.] Future Scheduled Test PHYSICAL T HERAPY EVALUATION PERFORMED. NO ADDITIONAL VISITS REQUIRED. PROVIDED SKILLED INTERVENTION INCLUDING STRENGTH, MOBILITY AND HOME SAFETY ASSESSMENT [code = PHYSICAL THERAPY EVALUATION PERFORMED. NO ADDITIONAL VISITS REQUIRED. PROVIDED SKILLED INTERVENTION INCLUDING STRENGTH, MOBILITY AND HOME SAFETY ASSESSMENT ] Goal 2024-05-16 Patient Goal - W OULD LIKE TO BE ABLE TO EAT AND SLEEP RIGHT. Goal 2024-06-27 Patient Goal - [place] LIKE TO BE ABLE TO EAT AND SLEEP RIGHT. Goal Patient Goal - W [place] LIKE TO BE ABLE TO SLEEP RIGHT. AND HEAL FRACTURES. Goal 2024-07-14 Patient Goal - [place] LIKE TO BE ABLE TO EAT AND SLEEP RIGHT. Goal 2024-07-18 Patient Goal - W [place]UL[place] LIKE TO BE ABLE TO SLEEP RIGHT. AND HEAL FRACTURES Goal Provider Goal - A PLAN OF [...] TAKE MEDICATIONS PRESCRIBED WITHOUT ADVERSE EFFECTS BY EOE Goal Provider Goal - PATIENT/CAREGIVER WILL VERBALIZE UNDERSTANDING OF SIGNS AND SYMPTOMS THAT PUT THE PATIENT AT RISK FOR HOSPITALIZATION /EMERGENCY ROOM VISITS, WHEN TO NOTIFY NURSE/PHYSICIAN OF COMPLICATIONS/DECLINE AND WHEN TO CALL 911. Goal Provider Goal - PATIENT / CAREGIVER WILL VERBALIZE/DEMONSTRATE UNDERSTANDING OF MEASURES TO MANAGE ALTERED CARDIOVASCULAR STATUS BY EOE. Goal Provider Goal - PATIENT / CAREGIVER [...] ALTERED RESPIRATORY STATUS BY END OF EPISODE. Goal Provider Goal - PATIENT / CAREGIVER WILL VERBALIZE/DEMONSTRATE AN ABILITY TO ADHERE TO PNEUMONIA SELF-MANAGEMENT TO MINIMIZE COMPLICATIONS AND AVOID HOSPITALIZATION BY END OF EPISODE. Goal Provider Goal - Goal Provider Goal - Goal Provider Goal - OT LTG: PATIENT WILL DEMONSTRATE IMPROVEMENT IN MODIFIED MARYURI INDEX SCORE FROM 79/100 TO 95/100INDICATING DECREASED DEPENDENCY ON CAREGIVER ASSISTANCE WITH ACTIVITIES OF DAILY LIVING WITHIN 8 WEEKS. OT LTG: PATIENT WILL DEMONSTRATE THE ABILITY TO COMPLETE MEAL PREPARATION AND CLEANUP TO REDUCE CAREGIVER BURDEN FROM MOD A TO INDEPENDENT WITHIN 4 WEEKS. OT LTG: PATIENT WILL DEMONSTRATE THE ABILITY TO COMPLETE SIMPLE LAUNDRY TASKS AT SIT LEVEL FROM MAX A TO INDEPENDENT WITHIN 8 WEEKS. OT STG: PATIENT WILL DEMONSTRATE IMPROVED ABILITY AND SAFETY TO PERFORM BATH/SHOWER TRANSFER FROM MIN A TO MODIFIED INDEPENDENT WITHIN 4 WEEKS. OT STG: PATIENT WILL DEMONSTRATE IMPROVED ABILITY TO MANAGE GRAB BARS DURING SELF-CARE FROM UNABLE TO INDEPENDENT WITHIN 4 WEEKS IN ORDER TO INCREASE SAFETY WITH SHOWER TRANSFERS. OT LTG: PATIENT WILL MAINTAIN OXYGEN SATURATION WITHIN PHYSICIAN ORDERED PARAMETERS THROUGHOUT THE EPISODE OF CARE. OT LTG: PATIENT/CAREGIVER WILL BE ABLE TO IMPLEMENT RECOMMENDATIONS SPECIFIC TO FALL REDUCTION FOR IMPROVED ADL/IADL COMPLETION AND HOME SAFETY BY END OF EPISODE. OT GOAL: PATIENT WILL DEMONSTRATE OPTIMAL OUTCOMES INCLUDING DECREASED PAIN AND INCREASED ROM AND STRENGTH WITH NO COMPLICATIONS AND IMPROVED INDEPENDENCE WITH ADLS FOLLOWING HUMERUS FRACTURE BY END OF EPISODE. OT LTG: PATIENT WILL DEMONSTRATE UNDERSTANDING OF PAIN MANAGEMENT TECHNIQUES EVIDENCED BY REDUCED PAIN OT LTG: PATIENT WILL DEMONSTRATE IMPROVED ABILITY TO COMPLETE UPPER BODY DRESSING TASKS IN ORDER TO DECREASE CAREGIVER BURDEN FROM MIN A TO MODIFIED INDEPENDENT UTILIZING ONE-HANDED DRESSING TECHNIQUES WITHIN 8 WEEKS OT STG: PATIENT WILL DEMONSTRATE IMPROVED ABILITY TO COMPLETE UPPER BODY DRESSING TASKS WITH CONTACT GUARD ASSISTANCE AND MODERATE VERBAL CUING NEEDED WITHIN 4 WEEKS OT LTG: PATIENT WILL DEMONSTRATE IMPROVED ABILITY TO COMPLETE LOWER BODY DRESSING TASKS IN ORDER TO DECREASE CAREGIVER BURDEN FROM MIN A TO MODIFIED INDEPENDENT WITHIN 8 WEEKS OT STG: PATIENT WILL DEMONSTRATE IMPROVED ABILITY TO PERFORM TOILET TRANSFERS TO REDUCE FALL RISK AND RISK OF INCONTINENCE AND UTI DEVELOPMENT FROM CGA TO INEPENDENT WITHIN 4 WEEKS. OT GOAL: PATIENT / CAREGIVER WILL DEMONSTRATE ADHERENCE TO PNEUMONIA SELF-MANAGEMENT BY END OF EPISODE . Goal Provider Goal - PATIENT / CAREGIVER WITHIN 1 VISIT WILL BE ABLE TO VERBALIZE / DEMONSTRATE UNDERSTANDING OF OBTAINING REASSESSMENT Encounters Start Date/Time End Date/Time Encounter Type Admission Type Attending [facility] Facility Care Department Encounter ID Discharge Date Discharge Status Discharge Condition Discharge Reason Percent Goals Met 2024-03-22 00:00:00 2024-09-17 00:00:00 Outpatient [facility]ERTIFIC [facility] [id number]
--- OUTSIDE RECORDS SUMMARY | 2024-08-01 08:26 | XMS_ITS | Encounter Summary ---
Author Organization [employer] Address [address] [place] [address] Care Team Providers Care Flight Surveyor Name Role Phone Sesar Pereyra MD Primary Care Provider [phone] Reason for Visit * Reason Comments Med Refill Encounter Details Date Type Department Care Team ([facility] Contact Info) Description 10/19/2022 Refill [facility] [address] [place] [address] Sesar Pereyra MD [address] [place] [address] Social History Tobacco Use Types Packs/Day Years [...] Upcoming Encounters Date Type Department Care Team ([facility] Contact Info) Description 09/11/2024 10:30 AM EDT Office Visit [facility] [address] [place] [address] Sesar Pereyra MD [address] [place] [address] documented as of this encounter Visit Diagnoses Not on filedocumented in this encounter Care Teams Flight Surveyor Relationship Specialty Start Date End Date Sesar Pereyra MD [address] [place] [address] PCP - General Internal Medicine 03/01/21 [facility] 03/22/24 documented as of this encounter
--- OUTSIDE RECORDS SUMMARY | 2024-08-01 08:27 | XMS_ITS | Encounter Summary ---
Author Organization [employer] Address [address] [facility] 7t [place] [address] Care Team Providers Care Patrol Sergeant Name Role Phone Sesar Pereyra MD Primary Care Provider +1- [phone] Encounter Details Date Type Department Care Team ([facility] st Contact Info) Description 07/10/2024 Telephone [facility] MED & PEDS [address] [place], [place] [phone] Sesar Pereyra MD [address] [place] [address] Social History Tobacco Use Types Packs/Day Years [...] tablet was sent to the incorrect pharmacy. [facility] requested a transfer but was til to contact pcp office . Preferred pharmacy [facility] [address] - [address] [facility]. documented in this encounter Plan of Treatment Upcoming Encounters Date Type Department Care Team ([facility] st Contact Info) Description 09/11/2024 10:30 AM EDT Office Visit [facility] MED & PEDS [address] [place] [address] Sesar Pereyra MD [address] [place] [address] documented as of this encounter Visit Diagnoses Not on filedocumented in this encounter Additional Health Concerns Assessment Noted Time PHQ-9 Depression Total Score: 16 024 10:59 AM EDT documented as of this encounter Care Teams Patrol Sergeant Relationship Specialty Start Date End Date Sesar Pereyra MD [address] [place] [address] PCP - General Internal Medicine 03/01/21 [facility] 03/22/24 documented as of this encounter
--- OUTSIDE RECORDS SUMMARY | 2024-08-01 08:27 | XMS_ITS | Encounter Summary ---
Author Organization [employer] Address [address] [facility] 7t [place] [address] Care Team Providers Care Meat Washer Name Role Phone Sesar Pereyra MD Primary Care Provider +1- [phone] Reason for Visit * Reason Onset Date Comments Medication Question 06/21/2024 Encounter Details Date Type Department Care Team ([facility] st Contact Info) Description 06/21/2024 Telephone [facility] MEDICINE [address] [place] [address] Sesar Pereyra MD [address] [place] [address] Medication Question Social History Tobacco Use Types [...] to Discontinue the medication. Contact Conrad at [phone] Ext [phone] The Voicemail is private so you are able to Leave a message in there. documented in this encounter Plan of Treatment Upcoming Encounters Date Type Department Care Team (Late st Contact Info) Description 09/11/2024 10:30 AM EDT Office Visit [facility] MED & PEDS [address] [place] [address] Sesar Pereyra MD [address] [place] [address] documented as of this encounter Visit Diagnoses Not on filedocumented in this encounter Additional Health Concerns Assessment Noted Time PHQ-9 Depression Total Score: 16 024 10:59 AM EDT documented as of this encounter Care Teams Meat Washer Relationship Specialty Start Date End Date Sesar Pereyra MD [address] [place] [address] PCP - General Internal Medicine 03/01/21 [facility] 03/22/24 documented as of this encounter
--- OUTSIDE RECORDS SUMMARY | 2024-08-01 08:27 | XMS_ITS | Encounter Summary ---
Author Organization [employer] Address [address] [facility] 7t [place] [address] Care Team Providers Care Arc Air Operator Name Role Phone Sesar Pereyra MD Primary Care Provider +1- [phone] Reason for Visit * Reason Onset Date Comments Med Refill 04/28/2024 Encounter Details Date Type Department Care Team ([facility] st Contact Info) Description 04/28/2024 Refill [facility] MED & PEDS [address] [place] [address] Sesar Pereyra MD [address] [place] [address] Social History Tobacco Use Types Packs/Day Years [...] [facility] MED & PEDS [address] [place] [address] Sesar Pereyra MD [address] [place] [address] documented as of this encounter Visit Diagnoses Not on filedocumented in this encounter Additional Health Concerns Assessment Noted Time PHQ-9 Depression Total Score: 16 024 10:59 AM EDT documented as of this encounter Care Teams Arc Air Operator Relationship Specialty Start Date End Date Sesar Pereyra MD [address] [place] [address] PCP - General Internal Medicine 03[facility]01[facility] 03/[facility] documented as of this encounter
--- OUTSIDE RECORDS SUMMARY | 2024-08-01 08:27 | XMS_ITS | Encounter Summary ---
Author Organization [employer] Address [address] [facility] 7t [place] [address] Care Team Providers Care Single Spindle Screw Machine Operator Name Role Phone Sesar Pereyra MD Primary Care Provider +1- [phone] Reason for Visit * Reason Onset Date Comments Med Refill 04/18/2024 Encounter Details Date Type Department Care Team ([facility] st Contact Info) Description 04/18/2024 Telephone [facility] MEDICINE [address] [place] [address] Sesar Pereyra MD [address] [place] [address] Med Refill Social History Tobacco Use Types [...] needing refill : To be sent to: [facility] - [place], [place] - [address] [place] [address] [place] documented in this encounter Plan of Treatment Upcoming Encounters Date Type Department Care Team (Late st Contact Info) Description 09/11/2024 10:30 AM EDT Office Visit [facility] MED & PEDS [address] [place] [address] Sesar Pereyra MD [address] [place] [address] documented as of this encounter Visit Diagnoses Not on filedocumented in this encounter Additional Health Concerns Assessment Noted Time PHQ-9 Depression Total Score: 16 024 10:59 AM EDT documented as of this encounter Care Teams Single Spindle Screw Machine Operator Relationship Specialty Start Date End Date Sesar Pereyra MD [address] [place] [address] PCP - General Internal Medicine 03/01/21 [facility] 03/22/24 documented as of this encounter
--- OUTSIDE RECORDS SUMMARY | 2024-08-01 08:27 | XMS_ITS | Encounter Summary ---
Author Organization [employer] Address [address] [facility] 7t [place] [address] Care Team Providers Care High Raw Sugar Boiler Name Role Phone Sesar Pereyra MD Primary Care Provider +1- [phone] Reason for Visit * Reason Onset Date Comments Med Refill 04/11/2024 Encounter Details Date Type Department Care Team (Late st Contact Info) Description 04/11/2024 Refill [facility] MED[facility]INE [address] [place] [address] Natasha Jiang MD [address] [place] [address] Closed nondisplaced fracture of acromial end of [...] 10:30 AM EDT Office Visit [facility] PEDS [address] [place] [address] Sesar Pereyra MD [address] [place] [address] documented as of this encounter Visit Diagnoses Diagnosis Closed nondisplaced fracture of acromial end of right clavicle, initial encounter documented in this encounter Additional Health Concerns Assessment Noted Time PHQ-9 Depression Total Score: 16 024 10:59 AM EDT documented as of this encounter Care Teams High Raw Sugar Boiler Relationship Specialty Start Date End Date Sesar Pereyra MD [address] [place] [address] PCP - General Internal Medicine 03[facility]01[facility] documented as of this encounter
--- OUTSIDE RECORDS SUMMARY | 2024-08-01 08:27 | XMS_ITS | Encounter Summary ---
Author Organization [employer] Address [address] [facility] 7t [place] [address] Care Team Providers Care Supervisor Cab Name Role Phone Sesar Pereyra MD Primary Care Provider +1- [phone] Encounter Details Date Type Department Care Team ([facility] st Contact Info) Description 11/01/2023 Orders Only [facility] MED & PEDS [address] [place], [place] [phone] Sesar Pereyra MD [address] [place] [address] Social History Tobacco Use Types Packs/Day Years [...] [facility] MED & PEDS [address] [place] [address] Sesar Pereyra MD [address] [place] [address] documented as of this encounter Visit Diagnoses Not on filedocumented in this encounter Additional Health Concerns Assessment Noted Time PHQ-9 Depression Total Score: 16 024 10:59 AM EDT documented as of this encounter Care Teams Supervisor Cab Relationship Specialty Start Date End Date Sesar Pereyra MD [address] [place] [address] PCP - General Internal Medicine 03/01/21 [facility] 03/22/24 documented as of this encounter
--- OUTSIDE RECORDS SUMMARY | 2024-08-01 08:27 | XMS_ITS | Clinical Summary ---
Author Organization Unknown Care Team Providers Care Crime Laboratory Analyst Name Role Phone MARCO RAMIREZ, POOJA Unavailable Unavailabl harpal JIMENEZ PT, COURTNEY Unavailable Unavailable SHERYL TOOLS DEVELOPER, JANETT Unavailable Unavailable LESLYE RN, DAGOBERTO Unavailable Unavailab abraham CARRION ELECTRIC RAZOR ASSEMBLER, ANTONIO Unavailable Unavailable READING OT, JOANIE Unavailable Unavailable CHANEY HOTEL MANAGER, TIA Unavailable Unavailable Payers Payer Name Policy Type Policy Number Effective Date Expira tion Date [employer] [id number] Problems Condition Name Condition Details Condition Category [...] 2023-05 00:00: 00 ATHSCL HEART DISEASE OF 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 05-01 00:00: 00 BENIGN PROSTATIC HYPERPLASIA WITHOUT LOWER URINRY TRACT SYMP Active 05-01 00:00: 00 HISTORY OF FALLING Active 2023-05 00:00: 00 LEAD PRINTER (CURRENT) USE OF ANTICOAGULAN TS Active 2023-05 [...] 2023-05 00:00: 00 05-16 23:59 :00 No [id number] PAIN 15 mg EVERY 6 HOURS NEEDED 15 mg EVERY 6 HOURS NEEDED (route: oral) Med Classific ation: Analgesic , Anti-infl ammatory or Antipyret ic clonazepam 0.5 mg tablet 2023-05 00:00: 00 Yes [id number] ANXIETY 0.5 mg 2 TIMES DAILY 0.5 mg 2 TIMES DAILY (route: oral) Med Classific ation: Central Nervous System Agents lisinopril 40 mg tablet 2023-05 00:00: 00 03-21 23:59 :00 No [id number] CAD 40 mg DAILY 40 mg DAILY (route: oral) Med Classific ation: Cardiovas cular Therapy Agents atorvastati n 80 mg tablet 2023-05 00:00: 00 Yes [id number] HYPERTENSIO N 80 mg DAILY 80 mg DAILY (route: oral) Med Classific ation: Cardiovas cular Therapy Agents cilostazol 50 mg tablet 2023-05 00:00: 00 Yes [id number] HYPERTENSIO N 50 mg 2 TIMES DAILY 50 mg 2 TIMES DAILY (route: oral) Med Classific ation: Hematolog ical Agents clopidogrel 75 mg tablet 2023-05 00:00: 00 03-21 23:59 :00 No [id number] CORONARY ARTERY DISEASE 75 mg DAILY 75 mg DAILY (route: oral) Med Classific ation: Hematolog ical Agents Eliquis 5 mg tablet 2023-05 00:00: 00 Yes [id number] ANTI ARRHYTHMIC 5 mg 2 TIMES DAILY 5 mg 2 TIMES DAILY (route: oral) Med Classific ation: Hematolog ical Agents furosemide 40 mg tablet 2023-05 00:00: 00 03-21 23:59 :00 No [id number] BPH 40 mg DAILY 40 mg DAILY (route: oral) Alternate Route: INTRA-MUS CULAR. Med Classific ation: Cardiovas cular Therapy Agents metoprolol tartrate 50 mg tablet 2023-05 00:00: 00 03-22 23:59 :00 No [id number] CAD 50 mg DAILY 50 mg DAILY (route: oral) Med Classific ation: Cardiovas cular Therapy Agents quetiapine 25 mg tablet 2023-05 00:00: 00 Yes [id number] MOOD STABILIZER 25 mg 2 TIMES DAILY 25 mg 2 TIMES DAILY (route: oral) Med Classific ation: Central Nervous System Agents sertraline 50 mg tablet 2023-05 00:00: 00 Yes [id number] MOOD STABILIZER 50 mg DAILY 50 mg DAILY (route: oral) Med Classific ation: Central Nervous System Agents tamsulosin 0.4 mg capsule 2023-05 00:00: 00 Yes [id number] BPH 0.4 mg DAILY 0.4 mg DAILY (route: oral) Med Classific ation: Genitouri nary Therapy docusate sodium 100 mg tablet 2023-05 00:00: 00 Yes [id number] CONSTIPATIO N 100 mg DAILY 100 mg DAILY (route: oral) Med Classific ation: Gastroint estinal Therapy Agents gabapentin 100 mg capsule 2023-05 00:00: 00 Yes [id number] PAIN 1-3 capsule BEDTIME 1-3 capsule BEDTIME (route: oral) Med Classific ation: Central Nervous System Agents metoprolol tartrate 25 mg tablet 2023-05 00:00: 00 03-27 16:09 :43.1 53 No [id number] HYPERTENSIO N 25 mg 2 TIMES DAILY 25 mg 2 TIMES DAILY (route: oral) Med Classific ation: Cardiovas cular Therapy Agents Multaq 400 mg tablet 2023-05 00:00: 00 Yes [id number] ANTIARRHYTH MICHAEL 400 mg 2 TIMES DAILY 400 mg 2 TIMES DAILY (route: oral) Med Classific ation: Cardiovas cular Therapy Agents furosemide 40 mg tablet 2023-05 00:00: 00 Yes [id number] edema 1 tablet DAILY 1 tablet DAILY (route: oral) Med Classific ation: Cardiovas cular Therapy Agents dextroamphe tamine-amph etamine 7.5 mg tablet 2023-05 00:00: 00 Yes [id number] attention 1 tablet DAILY 1 tablet DAILY (route: oral) Med Classific ation: Central Nervous System Agents metoprolol tartrate 25 mg tablet 2023-05 00:00: 00 06-27 23:59 :00 No [id number] heart rate 0.5 tablet 2 TIMES DAILY 0.5 tablet 2 TIMES DAILY (route: oral) Med Classific ation: Cardiovas cular Therapy Agents cephalexin 500 mg capsule 2023-05 00:00: 00 04-10 23:59 :00 No [id number] CELLULITIS LLL 500 mg 4 TIMES DAILY 500 mg 4 TIMES DAILY (route: oral) Med Classific ation: Anti-Infe ctive Agents hydralazine 25 mg tablet 2023-05 00:00: 00 Yes [id number] HTN 25 mg 2 TIMES DAILY 25 mg 2 TIMES DAILY (route: oral) Med Classific ation: Cardiovas cular Therapy Agents melatonin 3 mg tablet 06-27 00:00: 00 Yes [id number] INSOMNIA 1 tablet BEDTIME 1 tablet BEDTIME (route: oral) Med Classific ation: Central Nervous System Agents metoprolol tartrate 25 mg tablet 06-27 00:00: 00 Yes [id number] HTN 1 tablet DAILY 1 tablet DAILY (route: oral) Med Classific ation: Cardiovas cular Therapy Agents oxycodone 5 mg tablet 06-27 00:00: 00 Yes [id number] PAIN 1 tablet EVERY 8 HOURS 1 tablet EVERY 8 HOURS (route: oral) Med Classific ation: Analgesic , Anti-infl ammatory or Antipyret ic polyethylen e glycol 3350 17 gram/dose oral powder 06-27 00:00: 00 Yes [id number] CONSTIPATIO N 17 gram BEDTIME 17 gram BEDTIME (route: oral) Med Classific ation: Gastroint estinal Therapy Agents Tylenol 8 Hour 650 mg tablet,exte nded release 06-27 00:00: 00 Yes [id number] PAIN/FEVER 1 tablet EVERY 6 HOURS 1 tablet EVERY 6 HOURS (route: oral) Med Classific ation: Analgesic , Anti-infl ammatory or Antipyret ic albuterol sulfate HFA 90 mcg/actuati on aerosol inhaler 07-14 00:00: 00 Yes [id number] SHORTNESS OF BREATH 2 puff EVERY 4 HOURS 2 puff EVERY 4 HOURS (route: inhalation ) Med Classific ation: Respirato ry Therapy Agents azithromyci n 500 mg tablet 07-14 00:00: 00 Yes [id number] TREATS PNEUMONIA 500 mg DAILY 500 mg DAILY (route: oral) Med Classific ation: Anti-Infe ctive Agents cefuroxime axetil 500 mg tablet 07-14 00:00: 00 Yes [id number] ANTIBIOTIC TREATS PNEUMONIA 500 mg DAILY 500 [...] CONSULTING PHYSICIANS. RN TO OBSERVE AND ASSESS, HOTEL MANAGER/SUPERINTENDENT MARINE OIL TERMINAL TO OBSERVE FOR RISK FOR FALLS AND INSTRUCT IN FALL PREVENTION, HOME SAFETY, MEDICATION MANAGEMENT, INFECTION PREVENTION, AND NUTRITION MANAGEMENT. RN/HOTEL MANAGER/SUPERINTENDENT MARINE OIL TERMINAL NURSE MAY PERFORM O2 SATURATION LEVEL ON ADMISSION AND PRN FOR RN TO ASSESS/HOTEL MANAGER TO OBSERVE PATIENT, WITH NOTIFICATION TO THE PHYSICIAN IF SATURATION IS 90% IN THE ABSENCE OF MORE SPECIFIC PARAMETERS FROM THE PHYSICIAN. AGENCY MAY PERFORM A RESUMPTION OF CARE VISIT FOLLOWING ANY HOSPITAL ADMISSION. RN/HOTEL MANAGER/SUPERINTENDENT MARINE OIL TERMINAL TO MONITOR CO-MORBID CONDITIONS LISTED ON THE PLAN OF CARE AND ANY NEW CONDITIONS THAT PRESENT THEMSELVES DURING THIS EPISODE TO IDENTIFY CHANGES AND INTERVENE TO MINIMIZE COMPLICATIONS. [code = RN TO OBSERVE, ASSESS, EVALUATE, AND DEVELOP AN INDIVIDUALIZED PLAN OF CARE. AGENCY MAY ACCEPT ORDERS FROM CONSULTING PHYSICIANS. RN TO OBSERVE AND ASSESS, HOTEL MANAGER/SUPERINTENDENT MARINE OIL TERMINAL TO OBSERVE FOR RISK FOR FALLS AND INSTRUCT IN FALL PREVENTION, HOME SAFETY, MEDICATION MANAGEMENT, INFECTION PREVENTION, AND NUTRITION MANAGEMENT. RN/HOTEL MANAGER/SUPERINTENDENT MARINE OIL TERMINAL NURSE MAY PERFORM O2 SATURATION LEVEL ON ADMISSION AND PRN FOR RN TO ASSESS/HOTEL MANAGER TO OBSERVE PATIENT, WITH NOTIFICATION TO THE PHYSICIAN IF SATURATION IS 90% IN THE ABSENCE OF MORE SPECIFIC PARAMETERS FROM THE PHYSICIAN. AGENCY MAY PERFORM A RESUMPTION OF CARE VISIT FOLLOWING ANY HOSPITAL ADMISSION. RN/HOTEL MANAGER/SUPERINTENDENT MARINE OIL TERMINAL TO MONITOR CO-MORBID CONDITIONS LISTED ON THE PLAN OF CARE AND ANY NEW CONDITIONS THAT PRESENT THEMSELVES DURING THIS EPISODE TO IDENTIFY CHANGES AND INTERVENE TO MINIMIZE COMPLICATIONS.] Future Scheduled Test MEDICATION MANAGEMENT; RN/HOTEL MANAGER/SUPERINTENDENT MARINE OIL TERMINAL TO REVIEW MEDICATIONS FOR INTERACTIONS, EFFECTIVENESS OF DRUG THERAPY, AND SIGNS/SYMPTOMS OF ADVERSE REACTIONS. MAY INSTRUCT AND REINFORCE MEDICATION TEACHING RELATED TO THE USE OF MEDICATIONS, DOSAGE, FREQUENCY, PURPOSE, SIDE EFFECTS, AND TO REPORT COMPLICATIONS. [code = MEDICATION MANAGEMENT; RN/HOTEL MANAGER/SUPERINTENDENT MARINE OIL TERMINAL TO REVIEW MEDICATIONS FOR INTERACTIONS, EFFECTIVENESS OF DRUG THERAPY, AND SIGNS/SYMPTOMS OF ADVERSE REACTIONS. MAY INSTRUCT AND REINFORCE MEDICATION TEACHING RELATED TO THE USE OF MEDICATIONS, DOSAGE, FREQUENCY, PURPOSE, SIDE EFFECTS, AND TO REPORT COMPLICATIONS.] Future Scheduled Test RISK FOR H OSPITALIZATION; RN TO ASSESS/TEACH, SUPERINTENDENT MARINE OIL TERMINAL/HOTEL MANAGER TO OBSERVE/TEACH PATIENT/CAREGIVER ON RISK FOR HOSPITALIZATION/EMERGENCY ROOM VISITS, TEACH SIGNS AND SYMPTOMS THAT PUT PATIENT AT RISK, WHEN TO NOTIFY NURSE/PHYSICIAN OF COMPLICATIONS/DECLINE, AND WHEN TO CALL 911. [code = RISK FOR HOSPITALIZATION; RN TO ASSESS/TEACH, SUPERINTENDENT MARINE OIL TERMINAL/HOTEL MANAGER TO OBSERVE/TEACH PATIENT/CAREGIVER ON RISK FOR HOSPITALIZATION/EMERGENCY ROOM VISITS, TEACH SIGNS AND SYMPTOMS THAT PUT PATIENT AT RISK, WHEN TO NOTIFY NURSE/PHYSICIAN OF COMPLICATIONS/DECLINE, AND WHEN TO CALL 911.] Future Scheduled Test CARDIOVASC ULAR SYSTEM; RN TO ASSESS/TEACH, HOTEL MANAGER/SUPERINTENDENT MARINE OIL TERMINAL TO OBSERVE/TEACH RELATED TO ALTERED CARDIOVASCULAR STATUS TO MINIMIZE COMPLICATIONS AND REDUCE HOSPITALIZATION. [code = CARDIOVASCULAR SYSTEM; RN TO ASSESS/TEACH, HOTEL MANAGER/SUPERINTENDENT MARINE OIL TERMINAL TO OBSERVE/TEACH RELATED TO ALTERED CARDIOVASCULAR STATUS TO MINIMIZE COMPLICATIONS AND REDUCE HOSPITALIZATION.] Future Scheduled Test HYPERTENSI ON MANAGEMENT; RN TO ASSESS AND TEACH, HOTEL MANAGER/SUPERINTENDENT MARINE OIL TERMINAL TO OBSERVE AND TEACH WARNING SIGNS AND SYMPTOMS TO AVOID HOSPITALIZATION. [code = HYPERTENSION MANAGEMENT; RN TO ASSESS AND TEACH, HOTEL MANAGER/SUPERINTENDENT MARINE OIL TERMINAL TO OBSERVE AND TEACH WARNING SIGNS AND SYMPTOMS TO AVOID HOSPITALIZATION.] Future Scheduled Test ARRHYTHMIA MANAGEMENT; RN TO ASSESS AND TEACH, HOTEL MANAGER/SUPERINTENDENT MARINE OIL TERMINAL TO OBSERVE AND TEACH WARNING SIGNS AND SYMPTOMS TO AVOID HOSPITALIZATION. [code = ARRHYTHMIA MANAGEMENT; RN TO ASSESS AND TEACH, HOTEL MANAGER/SUPERINTENDENT MARINE OIL TERMINAL TO OBSERVE AND TEACH WARNING SIGNS AND SYMPTOMS TO AVOID HOSPITALIZATION.] Future Scheduled Test PAIN MANAG EMENT; RN TO ASSESS AND TEACH, SUPERINTENDENT MARINE OIL TERMINAL/HOTEL MANAGER TO OBSERVE AND TEACH AND PROVIDE EDUCATION ON PAIN MANAGEMENT TECHNIQUES. [code = PAIN MANAGEMENT; RN TO ASSESS AND TEACH, SUPERINTENDENT MARINE OIL TERMINAL/HOTEL MANAGER TO OBSERVE AND TEACH AND PROVIDE EDUCATION ON PAIN MANAGEMENT TECHNIQUES.] Future Scheduled Test FALL REDUC TION MANAGEMENT; RN TO ASSESS AND OBSERVE, HOTEL MANAGER/SUPERINTENDENT MARINE OIL TERMINAL TO OBSERVE FALL RISK FACTORS AND EDUCATE PATIENT/CAREGIVER ON STRATEGIES TO MINIMIZE THE RISK OF FALLING. [code = FALL REDUCTION MANAGEMENT; RN TO ASSESS AND OBSERVE, HOTEL MANAGER/SUPERINTENDENT MARINE OIL TERMINAL TO OBSERVE FALL RISK FACTORS AND EDUCATE PATIENT/CAREGIVER ON STRATEGIES TO MINIMIZE THE RISK OF FALLING.] Future Scheduled Test RESPIRATOR Y SYSTEM MANAGEMENT; RN TO ASSESS AND TEACH, HOTEL MANAGER/SUPERINTENDENT MARINE OIL TERMINAL TO OBSERVE AND TEACH RELATED TO ALTERED RESPIRATORY STATUS TO MINIMIZE COMPLICATIONS AND REDUCE HOSPITALIZATION. [code = RESPIRATORY SYSTEM MANAGEMENT; RN TO ASSESS AND TEACH, HOTEL MANAGER/SUPERINTENDENT MARINE OIL TERMINAL TO OBSERVE AND TEACH RELATED TO ALTERED RESPIRATORY STATUS TO MINIMIZE COMPLICATIONS AND REDUCE HOSPITALIZATION.] Future Scheduled Test PNEUMONIA MANAGEMENT; RN TO ASSESS AND TEACH, HOTEL MANAGER/SUPERINTENDENT MARINE OIL TERMINAL TO OBSERVE AND TEACH SIGNS OF PNEUMONIA EXACERBATION AND PROVIDE EARLY INTERVENTIONS TO MINIMIZE RISK OF HOSPITALIZATION. [code = PNEUMONIA MANAGEMENT; RN TO ASSESS AND TEACH, HOTEL MANAGER/SUPERINTENDENT MARINE OIL TERMINAL TO OBSERVE AND TEACH SIGNS OF PNEUMONIA [...] ACTIVITY, EDUCATION, AND TRAINING TO ADDRESS; DRESSING (OT/STEM LEAD FORMER) ACTIVITIES OF DAILY LIVING (OT/FERNY) MEAL PREPARATION AND CLEANUP (OT/FERNY) LAUNDRY MANAGEMENT (OT/STEM LEAD FORMER) TOILET TRANSFER (OT/FERNY) BATH/SHOWER TRANSFER (OT/FERNY) OT/STEM LEAD FORMER TO MONITOR AND EDUCATE ON OXYGEN SATURATION DURING ADLS/IADLS, NOTIFY PHYSICIAN AND/OR THE RN CLINICAL VICE PRESIDENT OF SOFTWARE DEVELOPMENT FOR PHYSICIAN NOTIFICATION AND IF O2 SATS BELOW 90% AFTER 10 MIN OF REST. OT/STEM LEAD FORMER MAY EDUCATE ON PAIN MANAGEMENT CLINICALLY INDICATED. OT / FERNY TO IDENTIFY FALL RISK FACTORS; EDUCATE THE PATIENT/CAREGIVER ON WAYS TO REDUCE FALL RISK FACTORS AND ESTABLISH HOME EXERCISE PROGRAM TO MINIMIZE FALL RISK. MAY TEACH THE PATIENT FLOOR RECOVERY WHEN CLINICALLY APPROPRIATE. OT/STEM LEAD FORMER TO EDUCATE ON PNEUMONIA / ASPIRATION PNEUMONIA SELF-MANAGEMENT. [code = AGENCY MAY PERFORM A RESUMPTION OF CARE VISIT FOLLOWING ANY HOSPITAL ADMISSION. OT TO EVALUATE, OBSERVE / ASSESS, AND MONITOR, STEM LEAD FORMER TO OBSERVE AND MONITOR, PROVIDE SKILLED THERAPEUTIC INTERVENTION, ACTIVITY, EDUCATION, AND TRAINING TO ADDRESS; DRESSING (OT/FERNY) ACTIVITIES OF DAILY LIVING (OT/FERNY) MEAL PREPARATION AND CLEANUP (OT/STEM LEAD FORMER) LAUNDRY MANAGEMENT (OT/FERNY) TOILET TRANSFER (OT/FERNY) BATH/SHOWER TRANSFER (OT/FERNY) OT/FERNY TO MONITOR AND EDUCATE ON OXYGEN SATURATION DURING ADLS/IADLS, NOTIFY PHYSICIAN AND/OR THE RN CLINICAL VICE PRESIDENT OF SOFTWARE DEVELOPMENT FOR PHYSICIAN NOTIFICATION AND IF O2 SATS [...] End Date/Time Encounter Type Admission Type Attending [facility] Facility Care Department Encounter ID Discharge Date Discharge Status Discharge Condition Discharge Reason Percent Goals Met 2024-03-22 00:00:00 2024-09-17 00:00:00 Outpatient RECERTIFIC DAGOBERTO NEIL [facility] [id number]
--- OUTSIDE RECORDS SUMMARY | 2024-08-01 08:27 | XMS_ITS | Encounter Summary ---
Author Organization [employer] Address [address] [facility] 7 [place] [address] Care Team Providers Care Feller Hand Name Role Phone Sesar Pereyra MD Primary Care Provider +1- [phone] Reason for Visit * Reason Comments Med Refill Encounter Details Date Type Department Care Team ([facility] Contact Info) Description 06/10/2022 Refill [facility] MED & PEDS [address] [place] [address] Sesar Pereyra MD [address] [place] [address] Primary insomnia Social History Tobacco Use Types [...] Upcoming Encounters Date Type Department Care Team ([facility] Contact Info) Description 09/11/2024 10:30 AM EDT Office Visit [facility] MED & PEDS [address] [place] [address] Sesar Pereyra MD [address] [place] [address] documented as of this encounter Visit Diagnoses Diagnosis Primary insomnia Persistent disorder of initiating or maintaining sleep documented in this encounter Care Teams Feller Hand Relationship Specialty Start Date End Date Sesar Pereyra MD [address] [place] [address] PCP - General Internal Medicine 03/01/21 [facility] 03/22/24 documented as of this encounter
--- OUTSIDE RECORDS SUMMARY | 2024-08-01 08:27 | XMS_ITS | Clinical Summary ---
Author Organization [employer] Address [address] [place] [address] Care Team Providers Care Tax Services Specialist Name Role Phone Sesar Pereyra MD Primary Care Provider [phone] Allergies No known active allergies Medications clonazePAM (KlonoPIN) 0.5 MG tablet 05/24/19 23 Active gabapentin (Neurontin) 100 MG capsule 03/11/20 23 Active QUEtiapine (SEROquel) 25 MG tablet 05/24/19 24 Active sertraline (Zoloft) 50 MG tablet 05/18/19 24 Active melatonin 3 MG tabletIndicatio ns:Primary insomnia Take 1 tablet (3 mg) by mouth at bedtime. 28 tablet 5 11/22/19 24 Active docusate sodium (Colace) 100 MG capsule TAKE 1 CAPSULE BY MOUTH TWICE A DAY (BUBBLE-MATHEUS) 56 capsule 5 02/06/20 24 Active metoprolol tartrate (Lopressor) 25 MG tabletIndicatio [...] per day. 28 tablet 07/11/19 25 Active hydrALAZINE (Apresoline) 25 MG tablet Take 1 tablet by mouth 2 times daily. 07/06/19 25 Active furosemide (Lasix) 40 MG tablet Take 1 tablet by mouth Once per day. 07/06/19 25 Active albuterol 108 (90 Base) MCG/ACT inhaler Inhale 1 puff every 4 (four) hours if needed for shortness of breath. 07/14/19 25 Active oxyCODONE (Roxicodone) 5 MG immediate release tablet Take 1 tablet by mouth every 8 (eight) hours if needed for severe pain. 06/24/19 25 Active tamsulosin (Flomax) 0.4 MG 24 hr capsule 05/18/19 24 025 Discontinued(Du plicate order (will not trigger notification to Pharmacy)) dronedarone (Multaq) 400 MG tablet Take 1 tablet by mouth with breakfast and with evening meal. 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 Johnson Likely DILLAN sleep study ordered. Given that he has RLS, He may have periodic limb movement disorder which can be checked for in the study. Check ferritin. Will await sleep study. Depression with anxiety 04/01/2014 Overview (06/16/2022): Dr. Pradhan at [facility]. Is going to establish care at [...] update Seen by [facility]. 4.[address] 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 [address] [place] [address] Sesar Pereyra MD Multifocal pneumonia (Primary Dx); Dislocation of left ulnohumeral joint, initial encounter; Essential hypertension; Dietary counseling; Exercise counseling; Class 1 obesity due to excess calories with serious comorbidity and body mass index (BMI) of 32.0 to 32.9 in adult 07/24/2024 Travel 07/22/[address] [address] Sesar Pereyra MD ER Follow-up 07/11/2024 Orders Only GENERIC EXTERNAL DATA DEPARTMENT Provider, Generic External Data 07/10/2024 Orders Only [address] [address] Sesar Pereyra MD Memory disturbance (Primary Dx) 07/10/2024 Telephone [facility] [address] [place] [address] Sesar Pereyra MD 07/09/2024 Telephone [facility] [address] [place] [address] Gracie Jewell RN NTTS OUTREACT CALL 07/04/[address] [address] Sesar Pereyra MD 06/24/2024 Orders Only [address] [address] Sesar Pereyra MD Paroxysmal atrial fibrillation (CMS/HCC) (Primary Dx) 06/21/[address] [address] Sesar Pereyra MD Medication Question 06/19/2024 Orders Only GENERIC EXTERNAL DATA DEPARTMENT Provider, Generic External Data 06/13/2024 1:00 PM EST Office Visit [facility] [address] [place] [address] Sesar Pereyra MD Kidney stone (Primary Dx); Primary hypertension; Low back pain at multiple sites; Tinnitus of right ear; Lower urinary tract symptoms 06/13/2024 Travel 06/12/2024 Orders Only GENERIC EXTERNAL DATA DEPARTMENT Provider, Generic External Data 05/30/[address] [address] Sesar Pereyra MD Lab Orders; Referral 05/30/[address] [address] Sesar Pereyra MD 05/28/2024 Telephone [facility] [address] [place] [address] Sesar Pereyra MD fyi 05/27/2024 Refill [facility] [address] [place] [address] Sesar Pereyra MD 05/23/[address] [facility] [address] [place] [address] Sesar Pereyra MD Medication Question 05/15/2024 Telephone [facility] [address] [place] [address] Sesar Pereyra MD 05/09/2024 Telephone [facility] [address] [place] [address] Verona Thompson RN 05/07/2024 9:15 AM EST Office Visit [facility] [address] [place] [address] Natasha Jiang MD Kidney stone (Primary Dx) 05/07/2024 Telephone [facility] [address] [place] [address] Natasha Jiang MD Medication Question 05/07/2024 Orders Only [facility] [address] [place] [address] Natasha Jiang MD 05/07/2024 Travel 05/06/2024 Telephone [facility] [address] [place] [address] Sesar Pereyra MD Nurse Triage from Last [...] Answer Date Recorded Patient Health Questionnaire-9 Score 6 07/24/2024 Patient Health Questionnaire-9 Score 6 07/24/2024 Last PHQ-9: Questionnaire Data Not on file 0 07/24/2024 Housing Stability Answer Date Recorded What is your housing situation today? I have yenny raman 07/24/[address] you li ve. Do you have problems with any of the following? None of the above 07/24/2024 Food Insecurity Answer Date Recorded Within the past 12 months, y ou worried that your food would run out before you got money to buy more: Never True 07/24/2024 Within the past 12 months,th e food you bought just didn't last and you didn't have enough money to get more: Never True Transportation Answer Date Recorded In the past 12 months, has l ack of transportation kept you from medical appts, meetings, work or from getting things needed for daily living? No 07/24/2024 Utilities Answer Date Recorded In the past 12 months, has t he [employer], gas, oil or water company threatened to shut off services in your home? No 07/24/2024 Depression Answer Date Recorded Patient Health Questionnaire-2 Score 1 07/24/2024 Internet Access Answer Date Recorded Internet Access Q1 Yes 07/24/2024 Internet Access Q2 Not on file 07/24/2024 Sex and Gender Information Value Date Recorded Sex Assigned at Male 02/28/2022 10:24 AM EDT Legal Sex Male 10:24 AM EDT Gender Identity Male 02/28/2022 10:24 AM EDT Sexual Orientation Choose not to disclose 2021 10:24 AM EDT Last Filed Vital Signs Vital Sign Reading Time Taken Comments Blood Pressure 156/75 07/24/2024 2:42 PM EDT Pulse 64 07/24/2024 2:42 PM EDT Temperature 36.7 ??C (98 ??F) 07/24/2024 2:42 PM EDT Respiratory Rate 20 07/24/2024 2:42 PM EDT Oxygen Saturation 98% 07/24/2024 2:42 PM EDT Inhaled Oxygen Concentration - - Weight 109 kg (240 lb) 07/24/2024 2:42 PM EDT Height 182.9 cm (6') 07/24/2024 2:42 PM EDT Body Mass Index 32.55 07/24/2024 2:42 PM EDT Plan of Treatment Upcoming Encounters Date Type Department Care Team (Late st Contact Info) Description 09/11/2024 10:30 AM EDT Office Visit [facility] [address] [place] [address] Sesar Pereyra MD [address] [place] [address] Health Maintenance Due Date Last Done Comments RSV Patients and Patients Aged 60 years or older (1 - 1-dose 75+ series) 2022 Alcohol/Substance Use Screening 07/24/2025 07/24/2024 Depression Screening 07/24/2025 07/24/2024, 07/25/19 SDOH Screening 07/24/2025 07/24/2024 Tobacco Screening 07/24/2025 07/24/2024 Lipid Panel 03/05/2026 03/05/2021 DTaP/Tdap/Td Vaccines (4 [...] Procedure Name Priority Date/Time Associated Diagnosis Comments CBC WITH AUTO DIFFERENTIAL Routine 07/24/2024 3:29 PM EDT Multifocal pneumonia LACTIC ACID Routine 07/11/2024 11:39 AM EDT [...] Relevant to Health Maintenance Results * (ABNORMAL) CBC auto differential (07/24/2024 3:29 PM EDT) Only the most recent of2 resultswithin the time period is included. White Blood Count 9.4 4.8 - 10.8 X10*3/uL [facility] Red Blood Count 4.55(L) 4.60 - 5.80 X10*6/uL [facility] Hemoglobin 13.9(L) 14.0 - 18.0 g/dl [facility] Hematocrit 42.7 42.0 - 52.0 % [facility] Mean Corpuscular Volume 93.8 80.0 - 98.0 fL [facility] Mean Corpuscular Hemoglobin 30.5 27.0 - 33.0 pg [facility] Mean Corpuscular HGB Conc 32.6 31.0 - 36.0 g/dl [facility] Red Cell Distribution Width 16.0 11.0 - 16.0 % [facility] Platelet Count 314 160 - 400 X10*3/uL [facility] Mean Platelet Volume 9.6 9.4 - 12.4 fL [facility] Neutrophils Percent Auto 78.3(H) 45 - 73 % [facility] Imm Gran Pct Auto 0.3 0.0 - 0.4 % [facility] Lymphocytes Percent Auto 10.8(L) 20 - 40 % [facility] Monocytes Percent Auto 8.9 2 - 11 % [facility] Eosinophils Percent Auto 1.2 0 - 4 % [facility] Basophils Percent Auto 0.5 0 - 2 % [facility] NRBC Pct Auto 0.0 0.0 - 0.2 /100WBC [facility] Neutrophils Absolute Auto 7.4 2.0 - 8.3 x10*3/uL [facility] Imm Gran Abs Auto 0.03 0.00 - 0.03 X10*3/uL [facility] Lymphocytes Absolute Auto 1.0(L) 1.2 - 4.9 X10*3/uL [facility] Monocytes Absolute Auto 0.8 0.1 - 1.2 X10*3/uL [facility] Eosinophils Absolute Auto 0.1 0.0 - 0.4 X10*3/uL [facility] Basophils Absolute Auto 0.1 0.0 - 0.2 X10*3/uL [facility] NRBC Abs Auto 0.000 0.0 - 0.012 X10*3/uL [facility] Blood Venous blood specimen / Unknown 07/24/2024 3:29 PM EDT 07/24/2024 6:24 PM EDT us Sesar Pereyra MD LAB BLOOD ORDERABLES Final Result Performing Organization Address [facility]/ZIP Co de Phone Number [facility] [address] [place] [address] [phone] * (ABNORMAL) Lactic Acid (07/11/2024 11:39 AM EDT) Lactic Acid 2.3(HH) 0.5 - 2.0 mmol/L [facility] Comment:Critical value for L ACTC: Results called to and read backby: DR THAYER Person calling: NEEL Date: 07-11-24 Time:1214 07/11/2024 11:3 9 AM EDT 07/11/2024 11:45 AM EDT us Zaranga External Data Provider LAB BLOOD ORDERAB LES Final Result Performing Organization Address [facility] Co de Phone Number [facility] [address] [place] [address] [phone] * VENOUS BLOOD GAS (07/11/2024 11:38 AM EDT) VBG pH 7.40 7.32 - 7.43 [facility] Comment:METER #: [id number] additional_comment: CbHernaso VBG PCO2 41 mmHg [facility] Comment:METER #: [id number] additional_comment: CbHernaso VBG PO2 28 mmHg [facility] Comment:METER #: [id number] additional_comment: CbHernaso VBG Base Excess 1.4 mmol/L [facility] Comment:METER #: [id number] additional_comment: Kristyn VBG HCO3 26 22 - 26 mmol/L [facility] Comment:METER #: [id number] additional_comment: Kristyn O2 Sat, Garrick 39.0 % [facility] Comment:METER #: [id number] additional_comment: Kristyn 07/11/2024 11:3 8 AM EDT 07/11/2024 11:41 AM EDT us Generic External Data Provider LAB BLOOD ORDERAB LES Final Result Performing Organization Address [facility] Co de Phone Number [facility] [address] [place] [address] [phone] * HOLD LT BLUE - POSSIBLE COAG (07/11/2024 11:38 AM EDT) Hold Lt Blue - Possible Coag SEE NOTE [facility] Comment:Specimen will be hel d untested for 4 hours. Call Hematologyif testing is desired. 07/11/2024 11:3 8 AM EDT 07/11/2024 11:47 AM EDT Generic External Data Provider LAB BLOOD ORDERAB LES Final Result Performing Organization Address [facility] de Phone Number [facility] [address] [place] [address] [phone] * XR Chest 1 View (07/11/2024 11:01 AM EDT) Anatomical Region Laterality Modality Chest Radiographic Homa ging 07/11/2024 11:0 1 AM EDT Narrative 07/11/2024 12:14 PM EDT ? [facility] ?[address] ?[place] [address] ?XRay Report ? Signed ? Patient: Prawlucki,Alex ?MR#: [id number] ?? [id number] ? : 1945 ?Acct:[id number] ? Age/Sex: 79 / M ?ADM Date: 03/13/25 ? Loc: HO.ED ? Attending Dr: ? Ordering Physician: Desirae Thayer MD ?? Date of Service: 07/11/24 ?? Procedure(s): XR chest 1V ?? Accession Number(s): [id number] ? cc: Desirae Thayer MD; Sesar Pereyra [...] DD/ 1101 ? TD/TT: 07/11/24 1202 ? Senior It Recruiter: ? Procedure Note Hernandez, Image - 07/11/2024 [place] [address] XRay Report Signed Patient: Alex Nettles#: [id number] : 1945cct:[id number] Age/Sex: 79 / MADM Date: 07/11/24 Loc: HO.ED Attending Dr: Ordering Physician: Desirae Thayer MD Date of Service: 07/11/24 Procedure(s): XR chest 1V Accession Number(s): [id number] cc: Desirae Thayer MD; Sesar Pereyra MD [...] 07/11/24 1211 DD/ 1101 TD/TT: 07/11/24 1202 Senior It Recruiter: [facility] External Provider IMG XR PROCEDURES Edited Result - Final * FL Guidance in OR (06/21/2024 5:50 PM EST) Anatomical Region Laterality Modality X-Ray Angiograph y 06/21/2024 5:50 PM EST Narrative 06/24/2024 8:13 AM EST ? [facility] ?[address] ?[place] [address] ? Fluoroscopy Report ? Signed ? Patient: Alex Nettles ?MR#: [id number] ?? [id number] ? : 1945 ?Acct:[id number] ? Age/Sex: 79 / M ?ADM Date: 06/19/24 ? Loc: HO.S3 ?363-2 ? Attending Dr: Tania Bernabe ASSISTANT MANAGER BILINGUAL ? Ordering Physician: Royce Kothari MD ?? Date of Service: 06/21/24 ?? Procedure(s): FL guidance in OR ?? Accession Number(s): [id number] ? cc: Sesar Pereyra MD; Royce Kothari [...] DD/ 1750 ? TD/TT: 06/21/24 1750 ? Senior It Recruiter: ? Procedure Note DonAlonzo norris - 06/24/2024 [place] [address] Fluoroscopy Report Signed Patient: Alex NettlesMR#: [id number] : 1945cct:[id number] Age/Sex: 79 / MADM Date: 06/19/24 Loc: HO.S3 363-[address]: Tania Bernabe NP Ordering Physician: Royce Kothari MD Date of Service: 06/21/24 Procedure(s): FL guidance in OR Accession Number(s): [id number] cc: Sesar Pereyra MD; Royce Kothari MD [...] 06/24/24 0810 DD/ 1750 TD/TT: 06/21/24 1750 Senior It Recruiter: us [facility] External Provider IMG IR PROCEDURES Final Result * CT Humerus (06/19/2024 8:00 PM EST) Anatomical Region Laterality Modality Computed Tomogra phy 06/19/2024 8:00 PM EST Narrative 06/19/2024 8:02 PM EST ? [facility] ?[address] ?[place], [place] [address] ? CT Scan Report ? Signed ? Patient: Alex Nettles ?MR#: [id number] ?? [id number] ? : 1945 ?Acct:[id number] ? Age/Sex: 79 / M ?ADM Date: 06/19/24 ? Loc: HO.ED ? Attending Dr: ? Ordering Physician: Angela Moura MD ?? Date of Service: 06/19/24 ?? Procedure(s): CT humerus LT wo IV con ?? Accession Number(s): [id number] ? cc: Sesar Pereyra MD; Angela Morua MD ? Report Number: ?? [id number]: Total DLP = ??192.00 mGy-cm ? CLINICAL [...] of the dorsal margin of the glenoid. Alkvudlm-yx-ipzma ?? 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 ?? 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 ?? Please refer to separate report for x-rays of the partially included elbow. ?? Mild imaged rib deformities in the uivmq-dh-wrjw appear old/chronic. ? Impression: ?? 1. Anterior [...] ? DD/ 99 ? TD/TT: 06/19/241999 ? Senior It Recruiter: ? Procedure Note Donjr, Image - 06/20/[address] [place] [address] [address] Scan Report Signed Patient: Ronald Nettles#: [id number] : 1945cct:[id number] Age/Sex: 79 / MADM Date: 06/19/24 Loc: HO.ED Attending Dr: Ordering Physician: Angela Moura MD Date of Service: 06/19/24 Procedure(s): CT humerus LT wo IV con Accession Number(s): [id number] cc: Sesar Pereyra MD; Angela Moura MD Report Number: [id number]: Total DLP = 192.00 mGy-cm CLINICAL HISTORY: [...] of the dorsal margin of the glenoid. Djgjlkxg-co-oicpw effusion with lipohemarthrosis of the left glenohumeral joint. 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 Please refer to separate report for x-rays of the partially includedelbow. Mild imaged rib deformities in the ielbx-ln-zmsv appear old/chronic. Impression: 1. Anterior dislocation of [...] in OV> 06/19/242001 DD/ 99 TD/TT: 06/19/241999 Senior It Recruiter: [facility] External Provider IMG CT PROCEDURES Final Result * (ABNORMAL) Prothrombin Time-INR (06/19/2024 7:57 PM EST) Prothrombin Time 16.0(H) 10.9 - 12.4 SEC [facility] INTERNATIONAL NORM RATIO 1.4(H) 0.9 - 1.1 [facility] Comment:INTERNATIONAL NORMAL IZED RATIO (INR) [...] Provider LAB BLOOD ORDERAB LES Final Result [facility] [address] [place] [phone] * XR Elbow 3+ Views Left (06/19/2024 7:16 PM EST) Anatomical Region Laterality Modality Upper Extremities, Elbow Left Radiogr aphic Imaging 06/19/2024 7:16 PM EST Narrative 06/19/2024 7:18 PM EST ? [facility] ?[address] ?[place] [address] ?XRay Report ? Signed ? Patient: Prawlucki,Alex ?MR#: [id number] ?? [id number] ? : 1945 ?Acct:[id number] ? Age/Sex: 79 / M ?ADM Date: 06/19/24 ? Loc: HO.ED ? Attending Dr: ? Ordering Physician: Angela Moura MD ?? Date of Service: 06/19/24 ?? Procedure(s): XR elbow LT min 3V ?? Accession Number(s): [id number] ? cc: Sesar Pereyra MD; Angela Moura [...] ? DD/ 15 ? TD/TT: 06/19/241915 ? Senior It Recruiter: ? Procedure Note Alonzo Ng - 06/19/[address] [address] XRay Report Signed Patient: Ronald Nettles#: [id number] : 7Acct:[id number] Age/Sex: 79 / MADM Date: 06/19/24 Loc: HO.ED Attending Dr: Ordering Physician: Angela Moura MD Date of Service: 06/19/24 Procedure(s): XR elbow LT min 3V Accession Number(s): [id number] cc: Sesar Pereyra MD; Angela Moura MD [...] in OV> 06/19/241916 DD/ 15 TD/TT: 06/19/241915 Senior It Recruiter: [facility] External Provider IMG XR PROCEDURES Final Result * CT Head w/o Contrast (06/19/2024 7:12 PM EST) Anatomical Region Laterality Modality Head, Neck Computed Tomogra phy 06/19/2024 7:12 PM EST Narrative 06/19/2024 7:14 PM EST ? [facility] ?[address] ?[place] [address] ? CT Scan Report ? Signed ? Patient: Alex Nettles ?MR#: [id number] ?? [id number] ? : 1945 ?Acct:[id number] ? Age/Sex: 79 / M ?ADM Date: 02/19/25 ? Loc: HO.ED ? Attending Dr: ? Ordering Physician: Lonny Delgado ?? Date of Service: 06/19/24 ?? Procedure(s): CT head/brain wo IV con ?? Accession Number(s): [id number] ? cc: Sesar Pereyra MD; Lonny Delgado ? Report Number: ?? [id number]: Total DLP = ??652.00 mGy-cm ? CLINICAL [...] Franko Rutherford MD in OV> ? 06/19/24 1913 ? DD/ 11 ? TD/TT: 06/19/241911 ? Senior It Recruiter: ? Procedure Note Alonzo Ng - 06/19/[address] [place] [address] [address] Scan Report Signed Patient: Alex NettlesMR#: [id number] : 1945cct:[id number] Age/Sex: 79 / MADM Date: 06/19/24 Loc: HO.ED Attending Dr: Ordering Physician: Lonny Delgado Date of Service: 06/19/24 Procedure(s): CT head/brain wo IV con Accession Number(s): [id number] cc: Sesar Pereyra MD; Lonny Delgado Report Number: [id number]: Total DLP = 652.00 mGy-cm CLINICAL HISTORY: [...] in OV> 06/19/241912 DD/ 11 TD/TT: 06/19/241911 Senior It Recruiter: [facility] External Provider IMG CT PROCEDURES Final Result * Lipase (06/19/2024 6:17 PM EST) Pathologist [facility] Lipase 17 8 - 78 U/L [facility] 06/19/2024 6:17 PM EST 06/19/2024 6:19 PM EST Generic External Data Provider LAB BLOOD ORDERAB LES Final Result [facility] [address] [place] [phone] * (ABNORMAL) Comprehensive Metabolic Panel (06/19/2024 6:17 PM EST) Pathologist [facility] Sodium 142 135 - 145 mmol/L [facility] Potassium 3.8 3.3 - 5.1 mmol/L [facility] Comment:Slight Hemolysis.Int erpret result with caution. Chloride 109(H) 96 - 108 mmol/L [facility] Carbon Dioxide 23 22 - 29 mmol/L [facility] Anion Gap 14 12 - 20 [facility] Urea Nitrogen (BUN) 13 9 - 16 mg/dL [facility] Creatinine, Serum 1.11 0.5 - 1.4 mg/dL [facility] Creatinine Clr Calc Pharmacy 72.1 [facility] Comment:eGFR (calculated fro m the MDRD study equation) and eCrCl(calculated from the Cockcroft-Gault equation) are based ondifferent parameters and may not yield comparable results.If eCrCl result is absurd, please check patient'sheight/weight. Estimated Glomerular Filt Rate >60 [facility] Comment:Chronic Kidney Disea se: Estimated GFR < 60 mL/min/1.40g3Tgiogl Kidney Disease: Estimated GFR < 15 mL/min/1.73m2 Glucose 92 60 - 115 mg/dL [facility] Calcium 9.1 8.4 - 10.2 mg/dL [facility] Bilirubin, Total 0.5 0.0 - 1.0 mg/dL [facility] Aspartate Amino Transferase 27 5 - 37 U/L [facility] Comment:Slight Hemolysis.Int erpret result with caution. Alanine Aminotransferase 14 0 - 40 U/L [facility] Total Protein 7.7 6.5 - 8.0 g/dL [facility] Albumin Level 4.1 3.5 - 5.0 g/dL [facility] Alkaline Phosphatase 119(H) 39 - 117 U/L [facility] 06/19/2024 6:17 PM EST 06/19/2024 6:19 PM EST us Generic External Data Provider LAB BLOOD ORDERAB LES Final Result Performing Organization Address City/State/[facility] Co de Phone Number [facility] [address] [place] [phone] * XR Shoulder 2+ Views Left (06/19/2024 4:00 PM EST) Anatomical Region Laterality Modality Upper Extremities, Shoulder Left Radi ographic Imaging 06/19/2024 4:00 PM EST Narrative 06/19/2024 4:23 PM EST ? [facility] ?[address] ? [place] [address] ?XRay Report ? Signed ? Patient: Prawismaelki,Alex ?MR#: [id number] ?? [id number] ? : 1945 ?Acct:[id number] ? Age/Sex: 79 / M ?ADM Date: 06/19/24 ? Loc: HO.HMGCX ? Attending Dr: Teresa Marie PA-C ? Ordering Physician: Teresa Marie PA-C ?? Date of Service: 06/19/24 ?? Procedure(s): XR shoulder LT min 2V ?? Accession Number(s): [id number] ? cc: Sesar Pereyra MD; Teresa Marie [...] ??06/19/2024 04:21 PM EST RP ?? Workstation: [id number] ? Dictated By: ?Jaquan Guillen MD ? Signed By: ?<Electronically signed by Jaquan Guillen MD in OV> ?06/19/24 1621 ? DD/ 1600 ? TD/TT: 06/19/24 1611 ? Senior It Recruiter: ? Procedure Note Alonzo Ng - 06/19/2024 [facility] [address] [place] [address] XRay Report Signed Patient: Alxe Nettles#: [id number] : 7Acct:[id number] Age/Sex: 79 / MADM Date: 06/19/24 Loc: HO.HMGCX Attending Dr: Teresa Marie PA-C Ordering Physician: Teresa Marie PA-C Date of Service: 06/19/24 Procedure(s): XR shoulder LT min 2V Accession Number(s): [id number] cc: Sesar Pereyra MD; Teresa Marie PA-C [...] 06/19/24 1621 DD/ 1600 TD/TT: 06/19/24 1611 Senior It Recruiter: [facility] External Provider IMG XR PROCEDURES Final Result * Creatinine, Serum (06/12/2024 12:09 PM EST) Creatinine, Serum 1.13 0.5 - 1.4 mg/dL [facility] Estimated Glomerular Filt Rate >60 [facility] Comment:Chronic Kidney Disea se: Estimated GFR < 60 mL/min/1.66w8Nzrivo Kidney Disease: Estimated GFR < 15 mL/min/1.73m2 06/12/2024 12:0 9 PM EST 06/12/2024 12:14 PM EST Generic External Data Provider LAB BLOOD ORDERAB LES Final Result Performing Organization Address [facility] de Phone Number [facility] [address] [place] [phone] * (ABNORMAL) BUN (Blood Urea Nitrogen) (06/12/2024 12:09 PM EST) Urea Nitrogen (BUN) 18(H) 9 - 16 mg/dL [facility] 06/12/2024 12:0 9 PM EST 06/12/2024 12:14 PM EST Generic External Data Provider LAB BLOOD ORDERAB LES Final Result Performing Organization Address [facility] Phone Number [facility] [address] [place] [address] [phone] * Calcium (06/12/2024 12:09 PM EST) Pathologist [facility] Calcium 9.1 8.4 - 10.2 mg/dL [facility] 06/12/2024 12:0 9 PM EST 06/12/2024 12:14 PM EST Generic External Data Provider LAB BLOOD ORDERAB LES Final Result Performing Organization Address [facility] Phone Number [facility] [address] [place] [address] [phone] * (ABNORMAL) Electrolyte Panel (06/12/2024 12:09 PM EST) Sodium 142 135 - 145 mmol/L [facility] Potassium 4.0 3.3 - 5.1 mmol/L [facility] Comment:Slight Hemolysis.Int erpret result with caution. Chloride 109(H) 96 - 108 mmol/L [facility] Carbon Dioxide 24 22 - 29 mmol/L [facility] Anion Gap 13 12 - 20 [facility] 06/12/2024 12:0 9 PM EST 06/12/2024 12:14 PM EST us Generic External Data Provider LAB BLOOD ORDERAB LES Final Result [facility] [address] [place] [address] [phone] * XR KUB and Upright 2 Views (05/07/2024 10:21 AM EST) Anatomical Region Laterality Modality Radiographic Homa ging 05/07/2024 10:2 1 AM EST Narrative 05/07/2024 10:48 AM EST ? [facility] ?[address] ?[place] [address] ?XRay Report ? Signed ? Patient: Alex Nettles ?MR#: [id number] ?? [id number] ? : 1945 ?Acct:[id number] ? Age/Sex: 79 / M ?ADM Date: 05/07/24 ? Loc: HO.XRAY ? Attending Dr: Natasha Jiang MD ? Ordering Physician: Natasha Jiang MD ?? Date of Service: 05/07/24 ?? Procedure(s): XR KUB ?? Accession Number(s): [id number] ? cc: Sesar Pereyra MD; Natasha Jiang [...] DD/ 1021 ? TD/TT: 05/07/24 1040 ? Senior It Recruiter: ? Procedure Note Hernandez, Image - 05/07/[address] [address] XRay Report Signed Patient: Alex NettlesMR#: [id number] : 1945cct:[id number] Age/Sex: 79 / MADM Date: 05/07/24 Loc: HO.CAROLINE Attending Dr: Natasha Jiang MD Ordering Physician: Natasha Jiang MD Date of Service: 05/07/24 Procedure(s): XR KUB Accession Number(s): [id number] cc: Sesar Pereyra MD; Natasha Jiang MD [...] 05/07/24 1045 DD/ 1021 TD/TT: 05/07/24 1040 Senior It Recruiter: Natasha Jiang MD IMG XR PROCEDURES Edited [...] Hepatitis C Ab (07/19/2023 11:42 AM EDT) [facility] Hepatitis C Antibody Nonreactive Nonreactive [facility] Comment:Antibodies to HCV no t detected; does not exclude early acuteHCV infection. Blood Venous blood specimen / Unknown 07/19/2023 11:42 AM EDT 07/19/2023 2:25 PM EDT Sesar Pereyra MD LAB BLOOD ORDERABLES Final Result [facility] [address] [place] [phone] * (ABNORMAL) LIPID PANEL, STANDARD (03/05/2021 9:16 AM EDT) [facility] Chol/HDLC Ratio 4.1 <5.0 (calc) [facility] [...] the ?? estimation of LDL-C. ?? Ulisses SS et al. MANDEEP. 2013;310(19): 6091-7795 ?? ([email or web address]) Non-HDL Cholesterol 104 <130 mg/dL (calc) [facility] [...] 2015;9:129-169. ?? 03/05/2021 9:16 AM EDT Sesar Peeryra MD LAB BLOOD ORDERABLES Final Result [facility] [address] from Last 3 Months or Most Recently Relevant to Health Maintenance Insurance [employer] MEDICARE REPLACEMENT HSN FULL Care Teams Tax Services Specialist Relationship Specialty Start Date End Date Sesar Pereyra MD [address] [place] [phone] PCP - General Internal Medicine 03/01/21 [facility] 03/22/24
--- OUTSIDE RECORDS SUMMARY | 2024-08-01 08:27 | XMS_ITS | Encounter Summary ---
Author Organization [employer] Address 75 [facility] 7t [place] [address] Care Team Providers Care Rail Switch Operator Name Role Phone Sesar Pereyra MD Primary Care Provider [phone]- [phone] Encounter Details Date Type Department Care Team (Late st Contact Info) Description 05/30/2024 Telephone [facility] MEDICINE [address] [place] [address] Sesar Pereyra MD [address] [place] [address] Social History Tobacco Use Types Packs/Day Years [...] [facility] [address] [place] [address] Sesar Pereyra MD [address] [place] [address] documented as of this encounter Visit Diagnoses Not on filedocumented in this encounter Additional Health Concerns Assessment Noted Time PHQ-9 Depression Total Score: 16 024 10:59 AM EDT documented as of this encounter Care Teams Rail Switch Operator Relationship Specialty Start Date End Date Sesar Pereyra MD [address] [place] [address] PCP - General Internal Medicine [facility] documented as of this encounter
--- OUTSIDE RECORDS SUMMARY | 2024-08-01 08:27 | XMS_ITS | Clinical Summary ---
Author Organization [facility] Address [address] [place] [address] Care Team Providers Care Co Founder And Cto Name Role Phone Nuha Galvin PA-C Primary Care Provider [phone] Source Comments PLEASE NOTE, if this patient [...] Date Sleep disorder 02/02/2015 Overview (02/02/2015): Saw [facility] and sleep on 01/15/2015: Dr. Johnson [...] once a year. In remission Seen at [facility] urology Depression with anxiety 04/01/2014 Overview (04/01/2014): Dr. Pradhan at [facility]. Is going to establish care at a new facility. 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 Hensley in 2006. Sees this doctor once a year at [facility]. Follows up with this facility every 6 months. 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 Immunizations Immunization Administration Dates Next Due INFLUENZA, SEASONAL, INJECTABLE [...] SAFETY NET MEDICARE - [place] Care Teams Co Founder And Cto Relationship Specialty Start Date End Date Nuha Galvin PA-C [address] [place] [address] PCP - General 03/21/18
--- OUTSIDE RECORDS SUMMARY | 2024-08-01 08:27 | XMS_ITS | Encounter Summary ---
Author Organization [employer] Address 75 [facility] 7t [place] [address] Care Team Providers Care Store Loss Prevention Manager Name Role Phone Sesar Pereyra MD Primary Care Provider [phone]- [phone] Encounter Details Date Type Department Care Team (Late st Contact Info) Description 06/24/2024 Orders Only [facility] MEDICINE [address] [place] [address] Sesar Pereyra MD [address] [place] [address] Paroxysmal atrial fibrillation (CMS/HCC) (Primary Dx) Social [...] [facility] [address] [place] [address] Sesar Pereyra MD [address] [place] [address] documented as of this encounter Visit Diagnoses Diagnosis Paroxysmal atrial fibrillation (CMS/HCC)- Primary Atrial fibrillation documented in this encounter Additional Health Concerns Assessment Noted Time PHQ-9 Depression Total Score: 16 024 10:59 AM EDT documented as of this encounter Care Teams Store Loss Prevention Manager Relationship Specialty Start Date End Date Sesar Pereyra MD [address] [place] [address] PCP - General Internal Medicine 03/01/21 [facility] documented as of this encounter
--- OUTSIDE RECORDS SUMMARY | 2024-08-01 08:27 | XMS_ITS | Encounter Summary ---
Author Organization [employer] Address 75 [facility] 7t [place] [address] Care Team Providers Care Pinion Staker Name Role Phone Sesar Pereyra MD Primary Care Provider [phone]- [phone] Reason for Visit * Reason Comments Med Refill Encounter Details Date Type Department Care Team ([facility] st Contact Info) Description 10/30/2023 Refill [facility]EDS [address] [place], [place] [phone] Sesar Pereyra MD [address] [place] [address] PVD (peripheral vascular disease) (CMS/HCC); Longstanding persistent [...] Upcoming Encounters Date Type Department Care Team ([facility] st Contact Info) Description 09/11/2024 10:30 AM EDT Office Visit [facility]S [address] [place] [address] Sesar Pereyra MD [address] [place] [address] documented as of this encounter Visit Diagnoses Diagnosis PVD (peripheral vascular disease) (CMS/HCC) Unspecified peripheral vascular disease Longstanding persistent atrial fibrillation (CMS/HCC) documented in this encounter Additional Health Concerns Assessment Noted Time PHQ-9 Depression Total Score: 16 024 10:59 AM EDT documented as of this encounter Care Teams Pinion Staker Relationship Specialty Start Date End Date Sesar Pereyra MD [address] [place] [address] PCP - General Internal Medicine 03/01/21 [facility] documented as of this encounter
--- OUTSIDE RECORDS SUMMARY | 2024-08-01 08:27 | XMS_ITS | Encounter Summary ---
Author Organization [employer] Address 75 [facility] 7t [place] [address] Care Team Providers Care Plate Stacker Hand Name Role Phone Sesar Pereyra MD Primary Care Provider +1- [phone] Reason for Visit * Reason Comments Med Refill Encounter Details Date Type Department Care Team ([facility] st Contact Info) Description 08/29/2023 Refill [facility] MEDICINE [address] [place] [address] Sesar Pereyra MD [address] [place] [address] Social History Tobacco Use Types Packs/Day Years Used Date Smoking Tobacco: Former Cigarettes Smokeless Tobacco: Never Comments:Quit 35 years ago. Depression Answer Date Recorded Patient Health Questionnaire-9 Score 16 07/19/2023 Patient Health Questionnaire-9 Score 16 07/19/2023 Last PHQ-9: Questionnaire Data Not on file 0 07/19/2023 Housing Stability Answer Date Recorded What is your housing situation today? I have eynny raman 07/12/[address] you [...] [facility] [address] [place] [address] Sesar Pereyra MD [address] [place] [address] documented as of this encounter Visit Diagnoses Not on filedocumented in this encounter Additional Health Concerns Assessment Noted Time PHQ-9 Depression Total Score: 16 024 10:59 AM EDT documented as of this encounter Care Teams Plate Stacker Hand Relationship Specialty Start Date End Date Sesar Pereyra MD [address] [place] [address] PCP - General Internal Medicine [facility]01[facility] documented as of this encounter
--- OUTSIDE RECORDS SUMMARY | 2024-08-01 08:27 | XMS_ITS | Encounter Summary ---
Author Organization [employer] Address 75 [facility] 7t [place] [address] Care Team Providers Care Welder Oxyhydrogen Name Role Phone Sesar Pereyra MD Primary Care Provider [phone]- [phone] Reason for Visit * Reason Onset Date Comments fyi 05/28/2024 Encounter Details Date Type Department Care Team ([facility] st Contact Info) Description 05/28/2024 Telephone [facility] MEDICINE [address] [place] [address] Sesar Pereyra MD [address] [place] [address] fy Social History Tobacco Use Types Packs/Day [...] - 05/28/2024 9:37 AM EST Tc from [facility] with [facility] informing pt verbalized to her that [...] [facility] [address] [place] [address] Sesar Pereyra MD [address] [place] [address] documented as of this encounter Visit Diagnoses Not on filedocumented in this encounter Additional Health Concerns Assessment Noted Time PHQ-9 Depression Total Score: 16 024 10:59 AM EDT documented as of this encounter Care Teams Welder Oxyhydrogen Relationship Specialty Start Date End Date Sesar Pereyra MD [address] [place] [address] PCP - General Internal Medicine 03/01/21 [facility] 03/22/24 documented as of this encounter
--- OUTSIDE RECORDS SUMMARY | 2024-08-01 08:27 | XMS_ITS | Encounter Summary ---
Author Organization [employer] Address [address] [facility] 7t [place] [address] Care Team Providers Care Instructional Services Librarian Name Role Phone Sesar Pereyra MD Primary Care Provider [phone]- [phone] Reason for Visit * Reason Onset Date Comments Referral 01/02/2024 Encounter Details Date Type Department Care Team ([facility] st Contact Info) Description 01/02/2024 Telephone [facility] [address] [place] [address] Sesar Pereyra MD [address] [place] [address] Referral Social History Tobacco Use Types Packs/Day [...] - 01/02/2024 10:48 AM EDT Tc from [place] the patients [facility] requesting a referral for a gerontologist and would like to be sent to at [facility] [place] documented in this encounter Plan of Treatment Upcoming Encounters Date Type Department Care Team (Late st Contact Info) Description 09/11/2024 10:30 AM EDT Office Visit [facility] MED [facility] PEDS [address] [place] [address] Sesar Pereyra MD [address] [place] [address] documented as of this encounter Visit Diagnoses Not on filedocumented in this encounter Additional Health Concerns Assessment Noted Time PHQ-9 Depression Total Score: 16 024 10:59 AM EDT documented as of this encounter Care Teams Instructional Services Librarian Relationship Specialty Start Date End Date Sesar Pereyra MD [address] [place], [place] [address], [place] [address] PCP - General Internal Medicine 03/01/21 [facility] 03/22/24 documented as of this encounter
--- OUTSIDE RECORDS SUMMARY | 2024-08-01 08:27 | XMS_ITS | Encounter Summary ---
Author Organization [employer] Address 75 [facility] [place] [address] Care Team Providers Care Energy Conservation Specialist Name Role Phone Sesar Pereyra MD Primary Care Provider [phone]- [phone] Reason for Referral * Consultation (Routine) - Closed Specialty Diagnoses / Procedures Referred By Contac t Referred To Contact Geriatric Medicine Diagnoses Memory disturbance Sesar Pereyra MD [address] [place] [address] Phone: tel: fax: [facility] [address] [place] [address] Phone: tel: fax: Referral ID Status Reason Start Date Expiration Date V isits Requested Visits Authorized [id number] Closed Specialty Services Required 01/11/2024 01/10/2025 1 1 Encounter Details Date Type Department Care Team (Late st Contact Info) Description 01/11/2024 Orders Only [facility] MED & PEDS [address] [place], [place] [phone] Sesar Pereyra MD [address] [place], [place] [phone] Memory disturbance (Primary Dx) Social History Tobacco [...] Description 09/11/2024 10:30 AM EDT Office Visit [facility] MED & PEDS [address] [place] [address] Sesar Pereyra MD [address] [place] [address] Scheduled Referrals Name Type Priority Associated Diagnoses Orde r Schedule Referral to Geriatrics Outpatient Referral Routine Memory disturbance Expected: 01/11/2024 (Approximate), Expires: 01/10/2025 documented as of this encounter Visit Diagnoses Diagnosis Memory disturbance- Primary Memory loss documented in this encounter Additional Health Concerns Assessment Noted Time PHQ-9 Depression Total Score: 16 024 10:59 AM EDT documented as of this encounter Care Teams Energy Conservation Specialist Relationship Specialty Start Date End Date Sesar Pereyra MD [address] [place] [address] PCP - General Internal Medicine [facility] documented as of this encounter
--- OUTSIDE RECORDS SUMMARY | 2024-08-01 08:27 | XMS_ITS | Encounter Summary ---
Author Organization [employer] Address 75 [facility] 7t [place] [address] Care Team Providers Care Fiscal Technician Name Role Phone Sesar Pereyra MD Primary Care Provider [phone]- [phone] Encounter Details Date Type Department Care Team (Late st Contact Info) Description 07/10/2024 Orders Only [facility] MEDICINE [address] [place] [address] Sesar Pereyra MD [address] [place] [address] Memory disturbance (Primary Dx) Social History Tobacco [...] [facility] [address] [place] [address] Sesar Pereyra MD [address] [place] [address] documented as of this encounter Visit Diagnoses Diagnosis Memory disturbance- Primary Memory loss documented in this encounter Additional Health Concerns Assessment Noted Time PHQ-9 Depression Total Score: 16 024 10:59 AM EDT documented as of this encounter Care Teams Fiscal Technician Relationship Specialty Start Date End Date Sesar Pereyra MD [address] [place] [address] PCP - General Internal Medicine 03/01/21 [facility] 03/[facility]/24 documented as of this encounter
--- OUTSIDE RECORDS SUMMARY | 2024-08-01 08:27 | XMS_ITS | Encounter Summary ---
Author Organization [employer] Address 75 [facility] 7t [place] [address] Care Team Providers Care Facilities Custodian Name Role Phone Sesar Pereyra MD Primary Care Provider [phone]- [phone] Encounter Details Date Type Department Care Team ([facility] st Contact Info) Description 04/29/2024 Orders Only [facility] MED & PEDS [address] [place], [place] [phone] Sesar Pereyra MD [address] [place] [address] Closed nondisplaced fracture of acromial end of [...] Upcoming Encounters Date Type Department Care Team ([facility] st Contact Info) Description 09/11/2024 10:30 AM EDT Office Visit [facility]EDS [address] [place] [address] Sesar Pereyra MD [address] [place] [address] documented as of this encounter Visit Diagnoses Diagnosis Closed nondisplaced fracture of acromial end of right clavicle, initial encounter documented in this encounter Additional Health Concerns Assessment Noted Time PHQ-9 Depression Total Score: 16 024 10:59 AM EDT documented as of this encounter Care Teams Facilities Custodian Relationship Specialty Start Date End Date Sesar Pereyra MD [address] [facility] [place] [address] PCP - General Internal Medicine [facility]01[facility] 03/[facility] documented as of this encounter
--- OUTSIDE RECORDS SUMMARY | 2024-08-01 08:27 | XMS_ITS | Encounter Summary ---
Author Organization [employer] Address [address] [facility] 7t [place] [address] Care Team Providers Care Explosive Ordnance Disposal Manager Name Role Phone Sesar Pereyra MD Primary Care Provider +1- [phone] Reason for Visit * Reason Onset Date Comments Lab Orders 05/30/2024 Referral 05/30/2024 Encounter Details Date Type Department Care Team (Late st Contact Info) Description 05/30/2024 Telephone [facility] MEDICINE [address] [place] [address] Sesar Pereyra MD [address] [place] [address] Lab Orders; Referral Social History Tobacco Use [...] Description 09/11/2024 10:30 AM EDT Office Visit [facility] MED & PEDS [address] [place] [address] Sesar Pereyra MD [address] [place] [address] documented as of this encounter Visit Diagnoses Not on filedocumented in this encounter Additional Health Concerns Assessment Noted Time PHQ-9 Depression Total Score: 16 024 10:59 AM EDT documented as of this encounter Care Teams Explosive Ordnance Disposal Manager Relationship Specialty Start Date End Date Sesar Pereyra MD [address] [place] [address] PCP - General Internal Medicine 03/01/21 [facility] 03/22/24 documented as of this encounter
== END 2024-08-01 08:23 | disposition home or self-care (01) ==
LOC: HO.HOSX 08:22
PROVIDERS: PCP Internal Medicine; Visit Provider Orthopaedic Surgery
DX: M25.512 Pain in left shoulder (principal); S43.005D Unspecified dislocation of left shoulder joint, subsequent encounter; Z98.890 Other specified postprocedural states; J18.9 Pneumonia, unspecified organism
CPT/HCPCS: 71046; 73030; 99212

== ENCOUNTER 2024-08-01 09:58 | Outpatient (AMB) | payer MEDICARE, MEDICAID, SELFPAY ==
--- NOTE | 2024-08-01 10:01 | A.OFFVIS_ITS ---
Intake Visit Reasons: PO L reduction and bankart repair DOS 06/21/24 Intake Note: Alex is a 79 year old right hand dominant male who presents today for a post operative appointment about 6 weeks s/p Left Shoulder Reduction & Bankhart repair 06/21/24. Patient reports that he is having continued pain. His pain is intermittent with no particular triggers or times of the day that are bothersome. He has been doing exercises as directed. Mentions some numbness occasionally in the left hand. Allergies No Known Allergies [No Known Allergies*] Allergy (Verified 08/01/24 10:24) HPI HPI PO L reduction and bankart repair DOS 06/21/24: Details: Six weeks status post left shoulder reduction and Bankart for traumatic fracture dislocation. He is doing well with no dislocations. He has not yet started physical therapy. [facility] Medical History Paroxysmal atrial flutter Preoperative cardiovascular examination Coronary artery disease Hypersomnia Snoring Neuropathy Atherosclerotic cardiovascular disease History of alcohol abuse History of COVID-19 On beta jose at home COPD (chronic obstructive pulmonary disease) On anticoagulant therapy History of atrial fibrillation PVD (peripheral vascular disease) Renal cell carcinoma Hypertension Depression Anxiety Diverticulitis Surgical History History of intestinal surgery History of kidney surgery H/O cardiac catheterization History of colectomy S/P femoral-femoral bypass surgery Social History Household Members: Significant Other Housing: House Are you a primary career development director to a significant other at home: No Do you presently have visiting nurse or other home services: No Alcohol intake: never Patient Tobacco Use Status: Former Tobacco user Tobacco use type: Cigarette Second Hand Smoke Exposure: No Substance Use Type: Marijuana Advance Directives Date on File: 06/09/21 service: Yes Current occupational status: retired Current occupation: right hand dominant Physical Exam Extrem Other: Incision clean dry and intact Deltoid firing 15 degrees of external rotation Passive abduction to 60 degrees. Assessment & Plan Assessment & Plan (1) Dislocation of left glenohumeral joint: Code(s): S43.005A - Unspecified dislocation of left shoulder joint, initial encounter Category: Medical Plan: PT for gentle range of motion. Bankart protocol. (2) Closed left scapular fracture: Code(s): S42.102A - Fracture of unspecified part of scapula, left shoulder, initial encounter for closed fracture Category: Medical Plan: Orders: Orders XR shoulder LT min 2V Today M25.519 - Pain in unspecified shoulder Coding Level of Care Code Global (04720) Diagnoses Dislocation of left glenohumeral joint S43.005A Closed left scapular fracture S42.102A
--- OUTSIDE RECORDS SUMMARY | 2024-08-01 10:43 | XMS_ITS | Encounter Summary ---
Author Organization [employer] Address [address] [facility] [address] [place] [address] Care Team Providers Care Needle Molder Name Role Phone Sesar Pereyra MD Primary Care Provider [phone] Reason for Visit * Reason Onset Date Comments Med Refill 04/28/2024 Encounter Details Date Type Department Care Team ([facility] st Contact Info) Description 04/28/2024 Refill [facility] [address] [place] [address] Sesar Pereyra MD [address] [place] [address] Social History Tobacco Use Types Packs/Day Years [...] [facility] [address] [place] [address] Sesar Pereyra MD [address] [place] [address] documented as of this encounter Visit Diagnoses Not on filedocumented in this encounter Additional Health Concerns Assessment Noted Time PHQ-9 Depression Total Score: 16 024 10:59 AM EDT documented as of this encounter Care Teams Needle Molder Relationship Specialty Start Date End Date Sesar Pereyra MD [address] [place] [address] PCP - General Internal Medicine [facility]01[facility] documented as of this encounter
--- OUTSIDE RECORDS SUMMARY | 2024-08-01 10:43 | XMS_ITS | Clinical Summary ---
Author Organization [facility] Address [address] [place] [address] Care Team Providers Care Polymerization Oven Operator Name Role Phone Nuha Galvin PA-C Primary Care Provider [phone] Source Comments PLEASE NOTE, if this patient [...] Date Sleep disorder 02/02/2015 Overview (02/02/2015): Saw [facility] and sleep on 01/15/2015: Dr. Johnson [...] once a year. In remission Seen at [facility] urology Depression with anxiety 04/01/2014 Overview (04/01/2014): Dr. Pradhan at [facility]. Is going to establish care at a new facility. 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 Hensley in 2006. Sees this doctor once a year at [facility]. Follows up with this facility every 6 months. 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
--- OUTSIDE RECORDS SUMMARY | 2024-08-01 10:43 | XMS_ITS | Encounter Summary ---
Author Organization [employer] Address [address] [facility] [address] [place] [address] Care Team Providers Care Ditto Machine Operator Name Role Phone Sesar Pereyra MD Primary Care Provider [phone] Encounter Details Date Type Department Care Team (Late st Contact Info) Description 05/30/2024 Telephone [facility] [address] [place] [address] Sesar Pereyra MD [address] [place] [address] Social History Tobacco Use Types Packs/Day Years [...] [facility] [address] [place] [address] Sesar Pereyra MD [address] [place] [address] documented as of this encounter Visit Diagnoses Not on filedocumented in this encounter Additional Health Concerns Assessment Noted Time PHQ-9 Depression Total Score: 16 024 10:59 AM EDT documented as of this encounter Care Teams Ditto Machine Operator Relationship Specialty Start Date End Date Sesar Pereyra MD [address] [place] [address] PCP - General Internal Medicine [facility] documented as of this encounter
--- OUTSIDE RECORDS SUMMARY | 2024-08-01 10:43 | XMS_ITS | Encounter Summary ---
Author Organization [employer] Address [address] [facility] [address] [place] [address] Care Team Providers Care Clin Application Specialist Name Role Phone Sesar Pereyra MD Primary Care Provider [phone] Reason for Visit * Reason Comments Med Refill Encounter Details Date Type Department Care Team ([facility] Contact Info) Description 10/26/2022 Refill [facility] [address] [place] [address] Sesar Pereyra MD [address] [place] [address] Social History Tobacco Use Types Packs/Day Years [...] Upcoming Encounters Date Type Department Care Team ([facility] Contact Info) Description 09/11/2024 10:30 AM EDT Office Visit [facility] [address] [place] [address] Sesar Pereyra MD [address] [place] [address] documented as of this encounter Visit Diagnoses Not on filedocumented in this encounter Care Teams Clin Application Specialist Relationship Specialty Start Date End Date Sesar Pereyra MD [address] [place] [address] PCP - General Internal Medicine 03/01/21 [facility] 03/22/24 documented as of this encounter
--- OUTSIDE RECORDS SUMMARY | 2024-08-01 10:43 | XMS_ITS | Encounter Summary ---
Author Organization [employer] Address [address] [facility] [address] [place] [address] Care Team Providers Care Metal Furniture Polisher Name Role Phone Sesar Pereyra MD Primary Care Provider [phone] Encounter Details Date Type Department Care Team (Late st Contact Info) Description 04/02/2024 Orders Only [facility] [address] [place] [address] Provider, MD Jazmyn Social History Tobacco Use [...] AM EDT Office Visit [facility] [address] [place] [address] Sesar Pereyra MD [address] [place] [address] documented as of this encounter Procedures Procedure [...] as of this encounter Care Teams Metal Furniture Polisher Relationship Specialty Start Date End Date Sesar Pereyra MD [address] [place] [address] PCP - General Internal Medicine [facility]01[facility] documented as of this encounter
--- OUTSIDE RECORDS SUMMARY | 2024-08-01 10:43 | XMS_ITS | Clinical Summary ---
Author Organization [employer] Address [address] [facility] 7[address] [place] [address] Care Team Providers Care Fuel Quality Tech Name Role Phone Sesar Pereyra MD Primary Care Provider [phone] Allergies No known active allergies Medications clonazePAM [...] considered Sleep disorder 02/02/2015 Overview (01/22/2024): Saw [facility] sleep on 01/15/2015: Dr. Johnson Likely DILLAN sleep study ordered. Given that he has RLS, He may have periodic limb movement disorder which can be checked for in the study. Check ferritin. Will await sleep study. Depression with anxiety 04/01/2014 Overview (06/16/2022): Dr. Pradhan at [facility]. Is going to establish care at [...] Sees this doctor once a year at [facility]. Follows up with this facility every 6 months. Pure hypercholesterolemia 07/24/2009 Thoracic aortic aneurysm (TAA) 03/11/2009 Overview (01/22/2024): IMO update Seen by [facility]. 4.[address] 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 07/14/2005 Overview (01/22/2024): Stent on right and fem- fem bypass on left IMO update Depressive disorder 07/14/2005 Alcohol abuse, in remission 06/19/2005 Encounters Date Type Department Care Team Description 07/24/2024 2:15 PM EDT Office Visit [facility] [address] [place] [address] Sesar Pereyra MD Multifocal pneumonia (Primary Dx); Dislocation of left ulnohumeral joint, initial encounter; Essential hypertension; Dietary counseling; Exercise counseling; Class 1 obesity due to excess calories with serious comorbidity and body mass index (BMI) of 32.0 to 32.9 in adult 07/24/2024 Travel 07/22/[address] [address] Sesar Pereyra MD ER Follow-up 07/11/2024 Orders Only GENERIC EXTERNAL DATA DEPARTMENT Provider, Generic External Data 07/10/2024 Orders Only [address] [address] Sesar Pereyra MD Memory disturbance (Primary Dx) 07/10/2024 Telephone [facility] [address] [place] [address] Sesar Pereyra MD 07/09/2024 Telephone [facility] [address] [place] [address] Gracie Jewell RN NTTS OUTREACT CALL 07/04/[address] [address] Sesar Pereyra MD 06/24/2024 Orders Only [address] [address] Sesar Pereyra MD Paroxysmal atrial fibrillation (CMS/HCC) (Primary Dx) 06/21/[address] [address] Sesar Pereyra MD Medication Question 06/19/2024 Orders Only GENERIC EXTERNAL DATA DEPARTMENT Provider, Generic External Data 06/13/2024 1:00 PM EST Office Visit [facility] [address] [place] [address] Sesar Pereyra MD Kidney stone (Primary Dx); Primary hypertension; Low back pain at multiple sites; Tinnitus of right ear; Lower urinary tract symptoms 06/13/2024 Travel 06/12/2024 Orders Only GENERIC EXTERNAL DATA DEPARTMENT Provider, Generic External Data 05/30/[address] [address] Sesar Pereyra MD Lab Orders; Referral 05/30/[address] [address] Sesar Pereyra MD 05/28/2024 Telephone [facility] [address] [place] [address] Sesar Pereyra MD fyi 05/27/2024 Refill [facility] [address] [place] [address] Sesar Pereyra MD 05/23/2024 Telephone [facility] [address] [place] [address] Sesar Pereyra MD Medication Question 05/15/2024 Telephone [facility] [address] [place] [address] Sesar Pereyra MD 05/09/2024 Telephone [facility] [address] [place] [address] Verona Thompson RN 05/07/2024 9:15 AM EST Office Visit [facility] [address] [place] [address] Natasha Jiang MD Kidney stone (Primary Dx) 05/07/2024 Telephone [facility] [address] [place] [address] Natasha Jiang MD Medication Question 05/07/2024 Orders Only [facility] [address] [place] [address] Natasha Jiang MD 05/07/2024 Travel 05/06/2024 Telephone [facility] [address] [place] [address] Sesar Pereyra MD Nurse Triage from Last [...] the past 12 months, has t he Con[employer], gas, oil or water company threatened to [...] Description 09/11/2024 10:30 AM EDT Office Visit [facility] [address] [place] [address] Sesar Pereyra MD [address] [place] [address] Health Maintenance Due Date Last Done Comments [...] Blood Count 9.4 4.8 - 10.8 X10*3/uL [facility] Red Blood Count 4.55(L) 4.60 - 5.80 X10*6/uL [facility] Hemoglobin 13.9(L) 14.0 - 18.0 g/dl [facility] Hematocrit 42.7 42.0 - 52.0 % [facility] Mean Corpuscular Volume 93.8 80.0 - 98.0 fL [facility] Mean Corpuscular Hemoglobin 30.5 27.0 - 33.0 pg [facility] Mean Corpuscular HGB Conc 32.6 31.0 - 36.0 g/dl [facility] Red Cell Distribution Width 16.0 11.0 - 16.0 % [facility] Platelet Count 314 160 - 400 X10*3/uL [facility] Mean Platelet Volume 9.6 9.4 - 12.4 fL [facility] Neutrophils Percent Auto 78.3(H) 45 - 73 % [facility] Imm Gran Pct Auto 0.3 0.0 - 0.4 % [facility] Lymphocytes Percent Auto 10.8(L) 20 - 40 % [facility] Monocytes Percent Auto 8.9 2 - 11 % [facility] Eosinophils Percent Auto 1.2 0 - 4 % [facility] Basophils Percent Auto 0.5 0 - 2 % [facility] NRBC Pct Auto 0.0 0.0 - 0.2 /100WBC [facility] Neutrophils Absolute Auto 7.4 2.0 - 8.3 x10*3/uL [facility] Imm Gran Abs Auto 0.03 0.00 - 0.03 X10*3/uL [facility] Lymphocytes Absolute Auto 1.0(L) 1.2 - 4.9 X10*3/uL [facility] Monocytes Absolute Auto 0.8 0.1 - 1.2 X10*3/uL [facility] Eosinophils Absolute Auto 0.1 0.0 - 0.4 X10*3/uL [facility] Basophils Absolute Auto 0.1 0.0 - 0.2 X10*3/uL [facility] NRBC Abs Auto 0.000 0.0 - 0.012 X10*3/uL [facility] Blood Venous blood specimen / Unknown 07/24/2024 3:29 PM EDT 07/24/2024 6:24 PM EDT us Sesar Pereyra MD LAB BLOOD ORDERABLES Final Result Performing Organization Address [facility]/ZIP Co de Phone Number [facility] [address] [place] [address] [phone] * (ABNORMAL) Lactic Acid (07/11/2024 11:39 AM EDT) Lactic Acid 2.3(HH) 0.5 - 2.0 mmol/L [facility] Comment:Critical value for L ACTC: Results called to and read backby: DR THAYER Person calling: NEEL Date: 07-11-24 Time:1214 07/11/2024 11:3 9 AM EDT 07/11/2024 11:45 AM EDT us [employer] External Data Provider LAB BLOOD ORDERAB LES Final Result Performing Organization Address [facility] Co de Phone Number [facility] [address] [place] [address] [phone] * VENOUS BLOOD GAS (07/11/2024 11:38 AM EDT) VBG pH 7.40 7.32 - 7.43 [facility] Comment:METER #: [id number] additional_comment: CbHernaso VBG PCO2 41 mmHg [facility] Comment:METER #: [id number] additional_comment: CbHernaso VBG PO2 28 mmHg [facility] Comment:METER #: [id number] additional_comment: CbHernaso VBG Base Excess 1.4 mmol/L [facility] Comment:METER #: [id number] additional_comment: Kristyn VBG HCO3 26 22 - 26 mmol/L [facility] Comment:METER #: [id number] additional_comment: Kristyn O2 Sat, Garrick 39.0 % [facility] Comment:METER #: [id number] additional_comment: Kristyn 07/11/2024 11:3 8 AM EDT 07/11/2024 11:41 AM EDT us Generic External Data Provider LAB BLOOD ORDERAB LES Final Result Performing Organization Address [facility] Co de Phone Number [facility] [address] [place] [address] [phone] * HOLD LT BLUE - POSSIBLE COAG (07/11/2024 11:38 AM EDT) Hold Lt Blue - Possible Coag SEE NOTE [facility] Comment:Specimen will be hel d untested for 4 hours. Call Hematologyif testing is desired. 07/11/2024 11:3 8 AM EDT 07/11/2024 11:47 AM EDT Generic External Data Provider LAB BLOOD ORDERAB LES Final Result Performing Organization Address [facility] de Phone Number [facility] [address] [place] [address] [phone] * XR Chest 1 View (07/11/2024 11:01 AM EDT) Anatomical Region Laterality Modality Chest Radiographic Homa ging 07/11/2024 11:0 1 AM EDT Narrative 07/11/2024 12:14 PM EDT ? [facility] ?[address] ?[place] [address] ?XRay Report ? Signed ? Patient: Prawlucki,Alex ?MR#: [id number] ?? [id number] ? : 1945 ?Acct:[id number] ? Age/Sex: 79 / M ?ADM Date: 03/13/25 ? Loc: HO.ED ? Attending Dr: ? Ordering Physician: Desirae Thayer MD ?? Date of Service: 07/11/24 ?? Procedure(s): XR chest 1V ?? Accession Number(s): [id number] ? cc: Desirae Thayer MD; Sesar Pereyra [...] DD/ 1101 ? TD/TT: 07/11/24 1202 ? Manager Crisis: ? Procedure Note Hernandez, Image - 07/11/2024 [place] [address] XRay Report Signed Patient: Alex Nettles#: [id number] : 1945cct:[id number] Age/Sex: 79 / MADM Date: 07/11/24 Loc: HO.ED Attending Dr: Ordering Physician: Desirae Thayer MD Date of Service: 07/11/24 Procedure(s): XR chest 1V Accession Number(s): [id number] cc: Desirae Thayer MD; Sesar Pereyra MD [...] 07/11/24 1211 DD/ 1101 TD/TT: 07/11/24 1202 Manager Crisis: [facility] External Provider IMG XR PROCEDURES Edited Result - Final * FL Guidance in OR (06/21/2024 5:50 PM EST) Anatomical Region Laterality Modality X-Ray Angiograph y 06/21/2024 5:50 PM EST Narrative 06/24/2024 8:13 AM EST ? [facility] ?[address] ?[place] [address] ? Fluoroscopy Report ? Signed ? Patient: Alex Nettles ?MR#: [id number] ?? [id number] ? : 1945 ?Acct:[id number] ? Age/Sex: 79 / M ?ADM Date: 06/19/24 ? Loc: HO.S3 ?363-2 ? Attending Dr: Tania Bernabe TREE SURGEON ? Ordering Physician: Royce Kothari MD ?? Date of Service: 06/21/24 ?? Procedure(s): FL guidance in OR ?? Accession Number(s): [id number] ? cc: Sesar Pereyra MD; Royce Kothari [...] DD/ 1750 ? TD/TT: 06/21/24 1750 ? Manager Crisis: ? Procedure Note DonAlonzo norris - 06/24/2024 [place] [address] Fluoroscopy Report Signed Patient: Alex NettlesMR#: [id number] : 1945cct:[id number] Age/Sex: 79 / MADM Date: 06/19/24 Loc: HO.S3 363-[address]: Tania Bernabe NP Ordering Physician: Royce Kothari MD Date of Service: 06/21/24 Procedure(s): FL guidance in OR Accession Number(s): [id number] cc: Sesar Pereyra MD; Royce Kothari MD [...] 06/24/24 0810 DD/ 1750 TD/TT: 06/21/24 1750 Manager Crisis: us [facility] External Provider IMG IR PROCEDURES Final Result * CT Humerus (06/19/2024 8:00 PM EST) Anatomical Region Laterality Modality Computed Tomogra phy 06/19/2024 8:00 PM EST Narrative 06/19/2024 8:02 PM EST ? [facility] ?[address] ?[place], [place] [address] ? CT Scan Report ? Signed ? Patient: Alex Nettles ?MR#: [id number] ?? [id number] ? : 1945 ?Acct:[id number] ? Age/Sex: 79 / M ?ADM Date: 06/19/24 ? Loc: HO.ED ? Attending Dr: ? Ordering Physician: Angela Moura MD ?? Date of Service: 06/19/24 ?? Procedure(s): CT humerus LT wo IV con ?? Accession Number(s): [id number] ? cc: Sesar Pereyra MD; Angela Moura MD ? Report Number: ?? [id number]: Total DLP = ??192.00 mGy-cm ? CLINICAL [...] of the dorsal margin of the glenoid. Oejlsufm-wh-uoibn ?? 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 ?? 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 ?? Please refer to separate report for x-rays of the partially included elbow. ?? Mild imaged rib deformities in the egepb-pi-bvka appear old/chronic. ? Impression: ?? 1. Anterior [...] ? DD/ 99 ? TD/TT: 06/19/241999 ? Manager Crisis: ? Procedure Note Donjr, Image - 06/20/[address] [place] [address] [address] Scan Report Signed Patient: Ronald Nettles#: [id number] : 1945cct:[id number] Age/Sex: 79 / MADM Date: 06/19/24 Loc: HO.ED Attending Dr: Ordering Physician: Angela Moura MD Date of Service: 06/19/24 Procedure(s): CT humerus LT wo IV con Accession Number(s): [id number] cc: Sesar Pereyra MD; Angela Moura MD Report Number: [id number]: Total DLP = 192.00 mGy-cm CLINICAL HISTORY: [...] of the dorsal margin of the glenoid. Rfdpsalz-qs-wddga effusion with lipohemarthrosis of the left glenohumeral joint. 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 Please refer to separate report for x-rays of the partially includedelbow. Mild imaged rib deformities in the inalj-bd-qpox appear old/chronic. Impression: 1. Anterior dislocation of [...] in OV> 06/19/242001 DD/ 99 TD/TT: 06/19/241999 Manager Crisis: [facility] External Provider IMG CT PROCEDURES Final Result * (ABNORMAL) Prothrombin Time-INR (06/19/2024 7:57 PM EST) Prothrombin Time 16.0(H) 10.9 - 12.4 SEC [facility] INTERNATIONAL NORM RATIO 1.4(H) 0.9 - 1.1 [facility] Comment:INTERNATIONAL NORMAL IZED RATIO [...] Provider LAB BLOOD ORDERAB LES Final Result [facility] [address] [place] [phone] * XR Elbow 3+ Views Left (06/19/2024 7:16 PM EST) Anatomical Region Laterality Modality Upper Extremities, Elbow Left Radiogr aphic Imaging 06/19/2024 7:16 PM EST Narrative 06/19/2024 7:18 PM EST ? [facility] ?[address] ?[place] [address] ?XRay Report ? Signed ? Patient: Prawlucki,Alex ?MR#: [id number] ?? [id number] ? : 1945 ?Acct:[id number] ? Age/Sex: 79 / M ?ADM Date: 06/19/24 ? Loc: HO.ED ? Attending Dr: ? Ordering Physician: Angela Moura MD ?? Date of Service: 06/19/24 ?? Procedure(s): XR elbow LT min 3V ?? Accession Number(s): [id number] ? cc: Sesar Pereyra MD; Angela Moura [...] ? DD/ 15 ? TD/TT: 06/19/241915 ? Manager Crisis: ? Procedure Note Alonzo Ng - 06/19/[address] [address] XRay Report Signed Patient: Ronald Nettles#: [id number] : 7Acct:[id number] Age/Sex: 79 / MADM Date: 06/19/24 Loc: HO.ED Attending Dr: Ordering Physician: Angela Moura MD Date of Service: 06/19/24 Procedure(s): XR elbow LT min 3V Accession Number(s): [id number] cc: Sesar Pereyra MD; Angela Moura MD [...] in OV> 06/19/241916 DD/ 15 TD/TT: 06/19/241915 Manager Crisis: [facility] External Provider IMG XR PROCEDURES Final Result * CT Head w/o Contrast (06/19/2024 7:12 PM EST) Anatomical Region Laterality Modality Head, Neck Computed Tomogra phy 06/19/2024 7:12 PM EST Narrative 06/19/2024 7:14 PM EST ? [facility] ?[address] ?[place] [address] ? CT Scan Report ? Signed ? Patient: Alex Nettles ?MR#: [id number] ?? [id number] ? : 1945 ?Acct:[id number] ? Age/Sex: 79 / M ?ADM Date: 02/19/25 ? Loc: HO.ED ? Attending Dr: ? Ordering Physician: Lonny Delgado ?? Date of Service: 06/19/24 ?? Procedure(s): CT head/brain wo IV con ?? Accession Number(s): [id number] ? cc: Sesar Pereyra MD; Lonny Delgado ? Report Number: ?? [id number]: Total DLP = ??652.00 mGy-cm ? CLINICAL [...] ? DD/ 11 ? TD/TT: 06/19/241911 ? Manager Crisis: ? Procedure Note Alonzo Ng - 06/19/[address] [place] [address] [address] Scan Report Signed Patient: Alex NettlesMR#: [id number] : 1945cct:[id number] Age/Sex: 79 / MADM Date: 06/19/24 Loc: HO.ED Attending Dr: Ordering Physician: Lonny Delgado Date of Service: 06/19/24 Procedure(s): CT head/brain wo IV con Accession Number(s): [id number] cc: Sesar Pereyra MD; Lonny Delgado Report Number: [id number]: Total DLP = 652.00 mGy-cm CLINICAL HISTORY: [...] in OV> 06/19/241912 DD/ 11 TD/TT: 06/19/241911 Manager Crisis: [facility] External Provider IMG CT PROCEDURES Final Result * Lipase (06/19/2024 6:17 PM EST) Pathologist [facility] Lipase 17 8 - 78 U/L [facility] 06/19/2024 6:17 PM EST 06/19/2024 6:19 PM EST Generic External Data Provider LAB BLOOD ORDERAB LES Final Result [facility] [address] [place] [phone] * (ABNORMAL) Comprehensive Metabolic Panel (06/19/2024 6:17 PM EST) Pathologist [facility] Sodium 142 135 - 145 mmol/L [facility] Potassium 3.8 3.3 - 5.1 mmol/L [facility] Comment:Slight Hemolysis.Int erpret result with caution. Chloride 109(H) 96 - 108 mmol/L [facility] Carbon Dioxide 23 22 - 29 mmol/L [facility] Anion Gap 14 12 - 20 [facility] Urea Nitrogen (BUN) 13 9 - 16 mg/dL [facility] Creatinine, Serum 1.11 0.5 - 1.4 mg/dL [facility] Creatinine Clr Calc Pharmacy 72.1 [facility] Comment:eGFR (calculated fro m the MDRD study equation) and eCrCl(calculated from the Cockcroft-Gault equation) are based ondifferent parameters and may not yield comparable results.If eCrCl result is absurd, please check patient'sheight/weight. Estimated Glomerular Filt Rate >60 [facility] Comment:Chronic Kidney Disea se: Estimated GFR < 60 mL/min/1.73t4Zlhjoj Kidney Disease: Estimated GFR < 15 mL/min/1.73m2 Glucose 92 60 - 115 mg/dL [facility] Calcium 9.1 8.4 - 10.2 mg/dL [facility] Bilirubin, Total 0.5 0.0 - 1.0 mg/dL [facility] Aspartate Amino Transferase 27 5 - 37 U/L [facility] Comment:Slight Hemolysis.Int erpret result with caution. Alanine Aminotransferase 14 0 - 40 U/L [facility] Total Protein 7.7 6.5 - 8.0 g/dL [facility] Albumin Level 4.1 3.5 - 5.0 g/dL [facility] Alkaline Phosphatase 119(H) 39 - 117 U/L [facility] 06/19/2024 6:17 PM EST 06/19/2024 6:19 PM EST us Generic External Data Provider LAB BLOOD ORDERAB LES Final Result Performing Organization Address City/State/[facility] Co de Phone Number [facility] [address] [place] [phone] * XR Shoulder 2+ Views Left (06/19/2024 4:00 PM EST) Anatomical Region Laterality Modality Upper Extremities, Shoulder Left Radi ographic Imaging 06/19/2024 4:00 PM EST Narrative 06/19/2024 4:23 PM EST ? [facility] ?[address] ? [place] [address] ?XRay Report ? Signed ? Patient: Prawisamelki,Alex ?MR#: [id number] ?? [id number] ? : 1945 ?Acct:[id number] ? Age/Sex: 79 / M ?ADM Date: 06/19/24 ? Loc: HO.HMGCX ? Attending Dr: Teresa Marie PA-C ? Ordering Physician: Teresa Marie PA-C ?? Date of Service: 06/19/24 ?? Procedure(s): XR shoulder LT min 2V ?? Accession Number(s): [id number] ? cc: Sesar Pereyra MD; Teresa Marie [...] ??06/19/2024 04:21 PM EST RP ?? Work[id number] ? Dictated By: ?Jaquan Guillen MD ? Signed By: ?<Electronically signed by Jaquan Guillen MD in OV> ?06/19/24 1621 ? DD/ 1600 ? TD/TT: 06/19/24 1611 ? Manager Crisis: ? Procedure Note Alonzo Ng - 06/19/2024 [facility] [address] [place] [address] XRay Report Signed Patient: Alex Nettles#: [id number] : 7Acct:[id number] Age/Sex: 79 / MADM Date: 06/19/24 Loc: HO.HMGCX Attending Dr: Teresa Marie PA-C Ordering Physician: Teresa Marie PA-C Date of Service: 06/19/24 Procedure(s): XR shoulder LT min 2V Accession Number(s): [id number] cc: Sesar Pereyra MD; Teresa Marie PA-C [...] 06/19/24 1621 DD/ 1600 TD/TT: 06/19/24 1611 Manager Crisis: [facility] External Provider IMG XR PROCEDURES Final Result * Creatinine, Serum (06/12/2024 12:09 PM EST) Creatinine, Serum 1.13 0.5 - 1.4 mg/dL [facility] Estimated Glomerular Filt Rate >60 [facility] Comment:Chronic Kidney Disea se: Estimated GFR < 60 mL/min/1.70a3Kundgx Kidney Disease: Estimated GFR < 15 mL/min/1.73m2 06/12/2024 12:0 9 PM EST 06/12/2024 12:14 PM EST Generic External Data Provider LAB BLOOD ORDERAB LES Final Result Performing Organization Address [facility] de Phone Number [facility] [address] [place] [phone] * (ABNORMAL) BUN (Blood Urea Nitrogen) (06/12/2024 12:09 PM EST) Urea Nitrogen (BUN) 18(H) 9 - 16 mg/dL [facility] 06/12/2024 12:0 9 PM EST 06/12/2024 12:14 PM EST Generic External Data Provider LAB BLOOD ORDERAB LES Final Result Performing Organization Address [facility] Phone Number [facility] [address] [place] [phone] * Calcium (06/12/2024 12:09 PM EST) Pathologist [facility] Calcium 9.1 8.4 - 10.2 mg/dL [facility] 06/12/2024 12:0 9 PM EST 06/12/2024 12:14 PM EST Generic External Data Provider LAB BLOOD ORDERAB LES Final Result Performing Organization Address [facility] Phone Number [facility] [address] [place] [phone] * (ABNORMAL) Electrolyte Panel (06/12/2024 12:09 PM EST) Sodium 142 135 - 145 mmol/L [facility] Potassium 4.0 3.3 - 5.1 mmol/L [facility] Comment:Slight Hemolysis.Int erpret result with caution. Chloride 109(H) 96 - 108 mmol/L [facility] Carbon Dioxide 24 22 - 29 mmol/L [facility] Anion Gap 13 12 - 20 [facility] 06/12/2024 12:0 9 PM EST 06/12/2024 12:14 PM EST us Generic External Data Provider LAB BLOOD ORDERAB LES Final Result [facility] [address] [place] [phone] * XR KUB and Upright 2 Views (05/07/2024 10:21 AM EST) Anatomical Region Laterality Modality Radiographic Homa ging 05/07/2024 10:2 1 AM EST Narrative 05/07/2024 10:48 AM EST ? [facility] ?[address] ?[place] [address] ?XRay Report ? Signed ? Patient: Alex Nettles ?MR#: [id number] ?? [id number] ? : 1945 ?Acct:[id number] ? Age/Sex: 79 / M ?ADM Date: 05/07/24 ? Loc: HO.XRAY ? Attending Dr: Natasha Jiang MD ? Ordering Physician: Natasha Jiang MD ?? Date of Service: 05/07/24 ?? Procedure(s): XR KUB ?? Accession Number(s): [id number] ? cc: Sesar Pereyra MD; Natasha Jaing MD ? EXAMINATION: ?? XR ABDOMEN KUB [...] 1021 ? TD/TT: 05/07/24 1040 ? Manager Crisis: ? Procedure Note Hernandez, Image - 05/07/[address] [address] XRay Report Signed Patient: Alex NettlesMR#: [id number] : 1945cct:[id number] Age/Sex: 79 / MADM Date: 05/07/24 Loc: HO.CAROLINE Attending Dr: Natasha Jiang MD Ordering Physician: Natasha Jiang MD Date of Service: 05/07/24 Procedure(s): XR KUB Accession Number(s): [id number] cc: Sesar Pereyra MD; Natasha Jiang MD [...] 1045 DD/ 1021 TD/TT: 05/07/24 1040 Manager Crisis: Natasha Jiang MD IMG XR PROCEDURES Edited [...] Hepatitis C Ab (07/19/2023 11:42 AM EDT) [facility] Hepatitis C Antibody Nonreactive Nonreactive [facility] Comment:Antibodies to HCV no t detected; does not exclude early acuteHCV infection. Blood Venous blood specimen / Unknown 07/19/2023 11:42 AM EDT 07/19/2023 2:25 PM EDT Sesar Pereyra MD LAB BLOOD ORDERABLES Final Result [facility] [address] [place] [phone] * (ABNORMAL) LIPID PANEL, STANDARD (03/05/2021 9:16 AM EDT) [facility] Chol/HDLC Ratio 4.1 <5.0 (calc) [...] ?? Ulisses SS et al. MANDEEP. 2013;310(19): 5260-5865 ?? (http://[email or web address]/faq/[email or web address]) Non-HDL Cholesterol 104 <130 mg/dL (calc) [facility] Comment: For patients with diabetes plus 1 major ASCVD risk ?? factor, treating to a non-HDL-C goal of <100 mg/dL ?? (LDL-C of <70 mg/dL) is considered a therapeutic ?? option. Triglycerides 232(H) <150 mg/dL [facility] Comment: ?? If a non-fasting specimen was collected, consider repeat triglyceride testing on a fasting specimen if clinically indicated. ?? Estela et al. J. of Clin. Lipidol. 2015;9:129-169. ?? 03/05/2021 9:16 AM EDT Sesar Pereyra MD LAB BLOOD ORDERABLES Final Result [facility] [address] from Last 3 Months or Most Recently Relevant to Health Maintenance Insurance [employer] MEDICARE REPLACEMENT HSN FULL Care Teams Fuel Quality Tech Relationship Specialty Start Date End Date Sesar Pereyra MD [address] [place] [address] PCP - General Internal Medicine 03/01/21 [facility] 03/22/24
--- OUTSIDE RECORDS SUMMARY | 2024-08-01 10:43 | XMS_ITS | Encounter Summary ---
Author Organization [employer] Address 75 [facility] 7t [place] [address] Care Team Providers Care Senior Product Marketing Manager Name Role Phone Sesar Pereyra MD Primary Care Provider +1- [phone] Encounter Details Date Type Department Care Team ([facility] st Contact Info) Description 04/01/2024 Orders Only [facility] CHC MED & PEDS [address] [place], [place] [phone] Sesar Pereyra MD 505 [place] [address] Essential hypertension (Primary Dx) Social History Tobacco [...] [facility] MED & PEDS [address] [place] [address] Sesar Pereyra MD 505 [place] [address] documented as of this encounter Visit Diagnoses Diagnosis Essential hypertension- Primary Unspecified essential hypertension documented in this encounter Additional Health Concerns Assessment Noted Time PHQ-9 Depression Total Score: 16 024 10:59 AM EDT documented as of this encounter Care Teams Senior Product Marketing Manager Relationship Specialty Start Date End Date Sesar Pereyra MD 505 [place] [address] PCP - General Internal Medicine 03/01/21 [facility] 03/22/24 documented as of this encounter
--- OUTSIDE RECORDS SUMMARY | 2024-08-01 10:43 | XMS_ITS | Encounter Summary ---
Author Organization [employer] Address 75 [facility] 7t [place] [address] Care Team Providers Care Supervisor Brooder Farm Name Role Phone Sesar Pereyra MD Primary Care Provider +1- [phone] Reason for Visit * Reason Onset Date Comments Lab Orders 05/30/2024 Referral 05/30/2024 Encounter Details Date Type Department Care Team (Late st Contact Info) Description 05/30/2024 Telephone [facility] MEDICINE [address] [place] [address] Sesar Pereyra MD 505 [place] [address] Lab Orders; Referral Social History Tobacco Use [...] Description 09/11/2024 10:30 AM EDT Office Visit [facility] CHC MED & PEDS 505 [place] [address] Sesar Pereyra MD [address] [place] [address] documented as of this encounter Visit Diagnoses Not on filedocumented in this encounter Additional Health Concerns Assessment Noted Time PHQ-9 Depression Total Score: 16 024 10:59 AM EDT documented as of this encounter Care Teams Supervisor Brooder Farm Relationship Specialty Start Date End Date Sesar Pereyra MD 505 [place] [address] PCP - General Internal Medicine 03/01/21 [facility] 03/22/24 documented as of this encounter
--- OUTSIDE RECORDS SUMMARY | 2024-08-01 10:43 | XMS_ITS | Encounter Summary ---
Author Organization [employer] Address 75 [facility] 7t [place] [address] Care Team Providers Care Underwriting Technician Name Role Phone Sesar Pereyra MD Primary Care Provider +1 [phone] Reason for Visit * Reason Comments Med Refill Encounter Details Date Type Department Care Team ([facility] [place] [facility] Contact Info) Description 10/19/2022 Refill [facility] MED & PEDS 505 [place] [address] Sesar Pereyra MD 505 [place] [address] Social History Tobacco Use Types Packs/Day Years [...] Upcoming Encounters Date Type Department Care Team ([facility] [place] [facility] Contact Info) Description 09/11/2024 10:30 AM EDT Office Visit [facility] MED & PEDS [address] [place] [address] Sesar Pereyra MD 505 [place] [address] documented as of this encounter Visit Diagnoses Not on filedocumented in this encounter Care Teams Underwriting Technician Relationship Specialty Start Date End Date eSsar Pereyra MD [address] [place] [address] PCP - General Internal Medicine 03/01/21 [facility] 03/22/24 documented as of this encounter
--- OUTSIDE RECORDS SUMMARY | 2024-08-01 10:43 | XMS_ITS | Encounter Summary ---
Author Organization [employer] Address 75 [facility] 7t [place] [address] Care Team Providers Care Roadway Technician Name Role Phone Sesar Pereyra MD Primary Care Provider +1- [phone] Reason for Visit * Reason Onset Date Comments fyi 05/28/2024 Encounter Details Date Type Department Care Team ([facility] st Contact Info) Description 05/28/2024 Telephone [facility] MEDICINE [address] [place] [address] Sesar Pereyra MD [address] [place] [address] fy Social History Tobacco Use Types Packs/Day [...] - 05/28/2024 9:37 AM EST Tc from [facility] Care informing pt verbalized to her [...] [facility] [address] [place] [address] Sesar Pereyra MD [address] [place] [address] documented as of this encounter Visit Diagnoses Not on filedocumented in this encounter Additional Health Concerns Assessment Noted Time PHQ-9 Depression Total Score: 16 024 10:59 AM EDT documented as of this encounter Care Teams Roadway Technician Relationship Specialty Start Date End Date Sesar Pereyra MD [address] [place] [address] PCP - General Internal Medicine 03/01/21 [facility] 03/22/24 documented as of this encounter
--- OUTSIDE RECORDS SUMMARY | 2024-08-01 10:43 | XMS_ITS | Encounter Summary ---
Author Organization [employer] Address 75 [facility] 7 [place] [address] Care Team Providers Care Staff Pharmacist Name Role Phone Sesar Pereyra MD Primary Care Provider +1- [phone] Encounter Details Date Type Department Care Team ([facility] Contact Info) Description 10/13/2022 Orders Only [facility] MED & PEDS 505 [place] [address] Sesar Pereyra MD 505 [place] [address] Social History Tobacco Use Types Packs/Day Years [...] [facility] 505 [place] [address] Sesar Pereyra MD 505 [place] [address] documented as of this encounter Visit Diagnoses Not on filedocumented in this encounter Care Teams Staff Pharmacist Relationship Specialty Start Date End Date Sesar Pereyra MD 505 [place] [address] PCP - General Internal Medicine 03/01/21 [facility] 03/22/24 documented as of this encounter
--- OUTSIDE RECORDS SUMMARY | 2024-08-01 10:43 | XMS_ITS | Encounter Summary ---
Author Organization [employer] Address 75 [facility] 7t [place] [address] Care Team Providers Care Warehouseman Name Role Phone Sesar Pereyra MD Primary Care Provider +1- [phone] Reason for Visit * Reason Onset Date Comments Med Refill 04/02/2024 Encounter Details Date Type Department Care Team ([facility] st Contact Info) Description 04/02/2024 Telephone [facility] MEDICINE 230 [place] [address] Sesar Pereyra MD 505 [place] [address] Med Refill Social History Tobacco Use Types [...] 9:39 AM EST Medication was sent to [facility] on 04/01/24 #30 with 11 refills. * Telephone Encounter - Miri Young - 04/02/2024 9:33 AM EST TC from pt requesting medication refill. Medications needing refill : metoprolol tartrate (Lopressor) 25 MG tablet To be sent to: [facility] documented in this encounter Plan of Treatment Upcoming Encounters Date Type Department Care Team (Late st Contact Info) Description 09/11/2024 10:30 AM EDT Office Visit [facility] MED & PEDS 505 [place] [address] Sesar Pereyra MD 505 [place] [address] documented as of this encounter Visit Diagnoses Not on filedocumented in this encounter Additional Health Concerns Assessment Noted Time PHQ-9 Depression Total Score: 16 024 10:59 AM EDT documented as of this encounter Care Teams Warehouseman Relationship Specialty Start Date End Date Sesar Pereyra MD [address] [place] [address] PCP - General Internal Medicine 03/01/21 [facility] 03/22/24 documented as of this encounter
--- OUTSIDE RECORDS SUMMARY | 2024-08-01 10:43 | XMS_ITS | Encounter Summary ---
Author Organization [employer] Address 75 [facility] 7t [place] [address] Care Team Providers Care Ski Lift Attendant Name Role Phone Sesar Pereyra MD Primary Care Provider +1- [phone] Reason for Visit * Reason Onset Date Comments Med Refill 04/18/2024 Encounter Details Date Type Department Care Team ([facility] st Contact Info) Description 04/18/2024 Telephone [facility] MEDICINE 230 [place] [address] Sesar Pereyra MD [address] [place] [address] Med Refill Social History Tobacco Use Types [...] needing refill : To be sent to: [email or web address] - [place], [place] - [address] [place] [address] [place] documented in this encounter Plan of Treatment Upcoming Encounters Date Type Department Care Team (Late st Contact Info) Description 09/11/2024 10:30 AM EDT Office Visit [facility] CHC MED & PEDS 505 [place] [address] Sesar Pereyra MD [address] [place] [address] documented as of this encounter Visit Diagnoses Not on filedocumented in this encounter Additional Health Concerns Assessment Noted Time PHQ-9 Depression Total Score: 16 024 10:59 AM EDT documented as of this encounter Care Teams Ski Lift Attendant Relationship Specialty Start Date End Date Sesar Pereyra MD [address] [place] [address] PCP - General Internal Medicine 03/01/21 [facility] 03/22/24 documented as of this encounter
--- OUTSIDE RECORDS SUMMARY | 2024-08-01 10:43 | XMS_ITS | Encounter Summary ---
Author Organization [employer] Address 75 [facility] 7t [place] [address] Care Team Providers Care Spring Coiler Hand Name Role Phone Sesar Pereyra MD Primary Care Provider +1- [phone] Reason for Visit * Reason Onset Date Comments Med Refill 04/26/2024 Encounter Details Date Type Department Care Team ([facility] st Contact Info) Description 04/26/2024 Telephone [facility] MEDICINE [address] [place] [address] Sesar Pereyra MD [address] [place] [address] Med Refill Social History Tobacco Use Types [...] 7.5 MG tablet To be sent to: [facility] - [place], [place] [facility] [address] documented in this encounter Plan of Treatment Upcoming Encounters Date Type Department Care Team (Late st Contact Info) Description 09/11/2024 10:30 AM EDT Office Visit [facility] MED & PEDS 505 [place] [address] Sesar Pereyra MD [address] [place] [address] documented as of this encounter Visit Diagnoses Not on filedocumented in this encounter Additional Health Concerns Assessment Noted Time PHQ-9 Depression Total Score: 16 024 10:59 AM EDT documented as of this encounter Care Teams Spring Coiler Hand Relationship Specialty Start Date End Date Sesar Pereyra MD 505 [place] [address] PCP - General Internal Medicine 03/01/21 [facility] 03/22/24 documented as of this encounter
--- OUTSIDE RECORDS SUMMARY | 2024-08-01 10:43 | XMS_ITS | Encounter Summary ---
Author Organization [employer] Address 75 [facility] 7t [place] [address] Care Team Providers Care Greenbelt Name Role Phone Sesar Pereyra MD Primary Care Provider +1- [phone] Reason for Visit * Reason Onset Date Comments Med Refill 04/11/2024 Encounter Details Date Type Department Care Team (Late st Contact Info) Description 04/11/[address] [facility] MEDICINE [address] [place] [address] Natasha Jiang MD [address] [place] [address] Closed nondisplaced fracture of acromial end of [...] AM EDT Office Visit [facility] CHC MED & PEDS 505 [place] [address] Sesar Pereyra MD [address] [place] [address] documented as of this encounter Visit Diagnoses Diagnosis Closed nondisplaced fracture of acromial end of right clavicle, initial encounter documented in this encounter Additional Health Concerns Assessment Noted Time PHQ-9 Depression Total Score: 16 024 10:59 AM EDT documented as of this encounter Care Teams Greenbelt Relationship Specialty Start Date End Date Sesar Pereyra MD 505 [place] [address] PCP - General Internal Medicine 03/01[facility]21 [facility] documented as of this encounter
--- OUTSIDE RECORDS SUMMARY | 2024-08-01 10:43 | XMS_ITS | Encounter Summary ---
Author Organization [employer] Address 75 [facility] 7t [place] [address] Care Team Providers Care Resource Manager Name Role Phone Sesar Pereyra MD Primary Care Provider +1- [phone] Encounter Details Date Type Department Care Team ([facility] st Contact Info) Description 04/29/2024 Orders Only [facility] CHC MED & PEDS [address] [place], [place] [phone] Sesar Pereyra MD 505 [place] [address] Closed nondisplaced fracture of acromial end of [...] [facility] MED & PEDS [address] [place] [address] Sesar Pereyra MD 505 [place] [address] documented as of this encounter Visit Diagnoses Diagnosis Closed nondisplaced fracture of acromial end of right clavicle, initial encounter documented in this encounter Additional Health Concerns Assessment Noted Time PHQ-9 Depression Total Score: 16 024 10:59 AM EDT documented as of this encounter Care Teams Resource Manager Relationship Specialty Start Date End Date Sesar Pereyra MD [address] [place] [address] PCP - General Internal Medicine 03/01/21 [facility] 03/22/[facility] documented as of this encounter
--- OUTSIDE RECORDS SUMMARY | 2024-08-01 10:44 | XMS_ITS | Encounter Summary ---
Author Organization [employer] Address 75 [facility] 7t [place] [address] Care Team Providers Care Orthodontist Vice President Name Role Phone Sesar Pereyra MD Primary Care Provider +1- [phone] Encounter Details Date Type Department Care Team ([facility] st Contact Info) Description 07/10/2024 Telephone [facility] CHC MED & PEDS [address] [place], [place] [phone] Sesar Pereyra MD [address] [place] [address] Social History Tobacco Use Types Packs/Day Years [...] tablet was sent to the incorrect pharmacy. [facility] requested a transfer but was til to contact pcp office . Preferred pharmacy [facility] [address] - [address] Pt [facility] has been without meds. documented in this encounter Plan of Treatment Upcoming Encounters Date Type Department Care Team ([facility] st Contact Info) Description 09/11/2024 10:30 AM EDT Office Visit [facility] MED & PEDS [address] [place] [address] Sesar Pereyra MD [address] [place] [address] documented as of this encounter Visit Diagnoses Not on filedocumented in this encounter Additional Health Concerns Assessment Noted Time PHQ-9 Depression Total Score: 16 024 10:59 AM EDT documented as of this encounter Care Teams Orthodontist Vice President Relationship Specialty Start Date End Date Sesar Pereyra MD 505 [place] [address] PCP - General Internal Medicine 03/01/21 [facility] 03/22/24 documented as of this encounter
--- OUTSIDE RECORDS SUMMARY | 2024-08-01 10:44 | XMS_ITS | Encounter Summary ---
Author Organization [employer] Address 75 [facility] 7t [place] [address] Care Team Providers Care Set Designer Name Role Phone Sesar Pereyra MD Primary Care Provider +1- [phone] Reason for Visit * Reason Comments Med Refill Encounter Details Date Type Department Care Team ([facility] st Contact Info) Description 10/30/2023 Refill [facility] CHC MED & PEDS [address] [place], [place] [phone] Sesar Pereyra MD [address] [place] [address] PVD (peripheral vascular disease) (CMS/HCC); Longstanding persistent [...] Upcoming Encounters Date Type Department Care Team ([facility] st Contact Info) Description 09/11/2024 10:30 AM EDT Office Visit [facility] CHC MED & PEDS 505 [place] [address] Sesar Pereyra MD [address] [place] [address] documented as of this encounter Visit Diagnoses Diagnosis PVD (peripheral vascular disease) (CMS/HCC) Unspecified peripheral vascular disease Longstanding persistent atrial fibrillation (CMS/HCC) documented in this encounter Additional Health Concerns Assessment Noted Time PHQ-9 Depression Total Score: 16 024 10:59 AM EDT documented as of this encounter Care Teams Set Designer Relationship Specialty Start Date End Date Sesar Pereyra MD [address] [place] [address] PCP - General Internal Medicine [facility]01[facility]21 [facility] 03/22/24 documented as of this encounter
--- OUTSIDE RECORDS SUMMARY | 2024-08-01 10:44 | XMS_ITS | Encounter Summary ---
Author Organization [employer] Address [address] [facility] 7t [place] [address] Care Team Providers Care Health And Safety Technician Name Role Phone Sesar Pereyra MD Primary Care Provider +1- [phone] Encounter Details Date Type Department Care Team (Late st Contact Info) Description 07/10/2024 Orders Only [facility] MEDICINE [address] [place] [address] Sesar Pereyra MD 505 [place] [address] Memory disturbance (Primary Dx) Social History Tobacco [...] Upcoming Encounters Date Type Department Care Team ([facility] st Contact Info) Description 09/11/2024 10:30 AM EDT Office Visit [facility] MED & PEDS 505 [place] [address] Sesar Pereyra MD 505 [place] [address] documented as of this encounter Visit Diagnoses Diagnosis Memory disturbance- Primary Memory loss documented in this encounter Additional Health Concerns Assessment Noted Time PHQ-9 Depression Total Score: 16 024 10:59 AM EDT documented as of this encounter Care Teams Health And Safety Technician Relationship Specialty Start Date End Date Sesar Pereyra MD [address] [place] [address] PCP - General Internal Medicine [facility]01[facility] 03/[facility] documented as of this encounter
--- OUTSIDE RECORDS SUMMARY | 2024-08-01 10:44 | XMS_ITS | Encounter Summary ---
Author Organization [employer] Address 75 [facility] 7t [place] [address] Care Team Providers Care Perfume Compounder Name Role Phone Sesar Pereyra MD Primary Care Provider +1- [phone] Reason for Visit * Reason Onset Date Comments Referral 01/02/2024 Encounter Details Date Type Department Care Team ([facility] st Contact Info) Description 01/02/2024 Telephone [facility] MEDICINE [address] [place] [address] Sesar Pereyra MD [address] [place] [address] Referral Social History Tobacco Use Types Packs/Day [...] - 01/02/2024 10:48 AM EDT Tc from [place] the patients EC requesting a referral for a gerontologist and would like to be sent to at [facility] in [place] documented in this encounter Plan of Treatment Upcoming Encounters Date Type Department Care Team (Late st Contact Info) Description 09/11/2024 10:30 AM EDT Office Visit [facility] MED & PEDS [address] [place] [address] Sesar Pereyra MD 505 [place] [address] documented as of this encounter Visit Diagnoses Not on filedocumented in this encounter Additional Health Concerns Assessment Noted Time PHQ-9 Depression Total Score: 16 024 10:59 AM EDT documented as of this encounter Care Teams Perfume Compounder Relationship Specialty Start Date End Date Sesar Pereyra MD [address] [place], [place] [address] [address] PCP - General Internal Medicine 03/01/21 [facility] 03/22/24 documented as of this encounter
--- OUTSIDE RECORDS SUMMARY | 2024-08-01 10:44 | XMS_ITS | Encounter Summary ---
Author Organization [employer] Address 75 [facility] [place] [address] Care Team Providers Care Metal Plater Name Role Phone Sesar Pereyra MD Primary Care Provider +1- [phone] Reason for Referral * Consultation (Routine) - Closed Specialty Diagnoses / Procedures Referred By Contac t Referred To Contact Geriatric Medicine Diagnoses Memory disturbance Sesar Pereyra MD [address] [place] [address] Phone: tel: fax: [facility] [address] [place] [address] Phone: tel: fax: Referral ID Status Reason Start Date Expiration Date V isits Requested Visits Authorized [id number] Closed Specialty Services Required 01/11/2024 01/10/2025 1 1 Encounter Details Date Type Department Care Team (Late st Contact Info) Description 01/11/2024 Orders Only [facility] CHC MED & PEDS [address] [place], [place] [phone] Sesar Pereyra MD [address] [place], [place] [phone] Memory disturbance (Primary Dx) Social History Tobacco [...] [facility] [address] [place] [address] Sesar Pereyra MD [address] [place] [address] Scheduled Referrals Name Type Priority Associated Diagnoses Orde r Schedule Referral to Geriatrics Outpatient Referral Routine Memory disturbance Expected: 01/11/2024 (Approximate), Expires: 01/10/2025 documented as of this encounter Visit Diagnoses Diagnosis Memory disturbance- Primary Memory loss documented in this encounter Additional Health Concerns Assessment Noted Time PHQ-9 Depression Total Score: 16 024 10:59 AM EDT documented as of this encounter Care Teams Metal Plater Relationship Specialty Start Date End Date Sesar Pereyra MD [address] [place] [address] PCP - General Internal Medicine [facility]01[facility]21 [facility] 03/22/24 documented as of this encounter
--- OUTSIDE RECORDS SUMMARY | 2024-08-01 10:44 | XMS_ITS | Encounter Summary ---
Author Organization [employer] Address 75 [facility] 7t [place] [address] Care Team Providers Care Food Porter Name Role Phone Sesar Pereyra MD Primary Care Provider +1- [phone] Encounter Details Date Type Department Care Team (Late st Contact Info) Description 06/24/2024 Orders Only [facility] MEDICINE [address] [place] [address] Sesar Pereyra MD 505 [place] [address] Paroxysmal atrial fibrillation (CMS/HCC) (Primary Dx) Social [...] Upcoming Encounters Date Type Department Care Team ([facility] st Contact Info) Description 09/11/2024 10:30 AM EDT Office Visit [facility] MED & PEDS [address] [place] [address] Sesar Pereyra MD [address] [place] [address] documented as of this encounter Visit Diagnoses Diagnosis Paroxysmal atrial fibrillation (CMS/HCC)- Primary Atrial fibrillation documented in this encounter Additional Health Concerns Assessment Noted Time PHQ-9 Depression Total Score: 16 024 10:59 AM EDT documented as of this encounter Care Teams Food Porter Relationship Specialty Start Date End Date Sesar Pereyra MD [address] [place] [address] PCP - General Internal Medicine 03/01/21 [facility] 03/[facility] documented as of this encounter
--- OUTSIDE RECORDS SUMMARY | 2024-08-01 10:44 | XMS_ITS | Encounter Summary ---
Author Organization [employer] Address [address] [facility] 7 [place] [address] Care Team Providers Care Fish Icer Name Role Phone Sesar Pereyra MD Primary Care Provider [phone]- [phone] Reason for Visit * Reason Comments Med Refill Encounter Details Date Type Department Care Team ([facility] Contact Info) Description 06/10/2022 Refill [facility] MED & PEDS [address] [place] [address] Sesar Pereyra MD [address] [place] [address] Primary insomnia Social History Tobacco Use Types [...] Upcoming Encounters Date Type Department Care Team ([facility] Contact Info) Description 09/11/2024 10:30 AM EDT Office Visit [facility] MED & PEDS [address] [place] [address] Sesar Pereyra MD [address] [place] [address] documented as of this encounter Visit Diagnoses Diagnosis Primary insomnia Persistent disorder of initiating or maintaining sleep documented in this encounter Care Teams Fish Icer Relationship Specialty Start Date End Date Sesar Pereyra MD [address] [place] [address] PCP - General Internal Medicine 03/01/21 [facility] 03/22/24 documented as of this encounter
--- OUTSIDE RECORDS SUMMARY | 2024-08-01 10:44 | XMS_ITS | Encounter Summary ---
Author Organization [employer] Address [address] [facility] 7t [place] [address] Care Team Providers Care Executive Director Global Brand Marketing Name Role Phone Sesar Pereyra MD Primary Care Provider [phone]- [phone] Encounter Details Date Type Department Care Team ([facility] st Contact Info) Description 11/01/2023 Orders Only [facility] MED & PEDS [address] [place], [place] [phone] Sesar Pereyra MD [address] [place] [address] Social History Tobacco Use Types Packs/Day Years [...] 09/11/2024 10:30 AM EDT Office Visit [facility] MED & PEDS [address] [place] [address] Sesar Pereyra MD [address] [place] [address] documented as of this encounter Visit Diagnoses Not on filedocumented in this encounter Additional Health Concerns Assessment Noted Time PHQ-9 Depression Total Score: 16 024 10:59 AM EDT documented as of this encounter Care Teams Executive Director Global Brand Marketing Relationship Specialty Start Date End Date Ssear Pereyra MD [address] [place] [address] PCP - General Internal Medicine 03/01/21 [facility] 03/22/24 documented as of this encounter
--- OUTSIDE RECORDS SUMMARY | 2024-08-01 10:44 | XMS_ITS | Encounter Summary ---
Author Organization [employer] Address [address] [facility] 7t [place] [address] Care Team Providers Care Regional Environmental Manager Name Role Phone Sesar Pereyra MD Primary Care Provider [phone]- [phone] Reason for Visit * Reason Comments Med Refill Encounter Details Date Type Department Care Team ([facility] st Contact Info) Description 08/29/2023 Refill [facility] MEDICINE [address] [place] [address] Sesar Pereyra MD [address] [place] [address] Social History Tobacco Use Types Packs/Day Years [...] [facility] MED & PEDS [address] [place] [address] Sesar Pereyra MD [address] [place] [address] documented as of this encounter Visit Diagnoses Not on filedocumented in this encounter Additional Health Concerns Assessment Noted Time PHQ-9 Depression Total Score: 16 024 10:59 AM EDT documented as of this encounter Care Teams Regional Environmental Manager Relationship Specialty Start Date End Date Sesar Pereyra MD [address] [place] [address] PCP - General Internal Medicine 03/01/21 [facility] 03/22/24 documented as of this encounter
--- OUTSIDE RECORDS SUMMARY | 2024-08-01 10:44 | XMS_ITS | Encounter Summary ---
Author Organization [employer] Address [address] [facility] 7t [place] [address] Care Team Providers Care Gluing Crew Leader Name Role Phone Sesar Pereyra MD Primary Care Provider [phone]- [phone] Reason for Visit * Reason Onset Date Comments Medication Question 06/21/2024 Encounter Details Date Type Department Care Team ([facility] st Contact Info) Description 06/21/2024 Telephone [facility] MEDICINE [address] [place] [address] Sesar Pereyra MD [address] [place] [address] Medication Question Social History Tobacco Use Types [...] to Discontinue the medication. Contact Conrad at [phone] Ext [phone] The Voicemail is private so you are able to Leave a message in there. documented in this encounter Plan of Treatment Upcoming Encounters Date Type Department Care Team (Late st Contact Info) Description 09/11/2024 10:30 AM EDT Office Visit [facility] MED & PEDS [address] [place] [address] Sesar Pereyra MD [address] [place] [address] documented as of this encounter Visit Diagnoses Not on filedocumented in this encounter Additional Health Concerns Assessment Noted Time PHQ-9 Depression Total Score: 16 024 10:59 AM EDT documented as of this encounter Care Teams Gluing Crew Leader Relationship Specialty Start Date End Date Sesar Pereyra MD [address] [place] [id number] PCP - General Internal Medicine 03/01/21 [facility] 03/22/24 documented as of this encounter
== END 2024-08-01 10:40 | disposition home or self-care (01) ==
LOC: HO.HOS 09:59
PROVIDERS: PCP Internal Medicine; Visit Provider Orthopaedic Surgery
DX: S43.005A Unspecified dislocation of left shoulder joint, initial encounter (principal); S42.102A Fracture of unspecified part of scapula, left shoulder, initial encounter for closed fracture
CPT/HCPCS: 99024

== ENCOUNTER → 2024-08-01 11:00 | Outpatient (BNV) | payer MEDICARE, MEDICAID, SELFPAY | PROVIDERS: PCP Internal Medicine; Visit Provider Radiology Diagnostic Radiology | DX: R07.9 Chest pain, unspecified (principal) | CPT/HCPCS: 71046; 73030 ==

== ENCOUNTER → 2024-08-05 12:56 | Outpatient (REF) | payer MEDICARE, MEDICAID, SELFPAY ==
--- NOTE | 2024-08-05 12:59 | CA_ITS ---
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 The calculated ejection fraction is 58% by biplane method. - No obvious valvular pathology seen on this study. - There is mild dilatation of the sinuses of Valsalva measuring 4.70 cm, mild dilatation of the ascending aorta measuring 4.10 cm, and mild dilatation of the aortic arch measuring 4.00 cm. Findings Procedure Information The study quality is limited by the patients inability to tolerate the test. Left Ventricle Normal left ventricular cavity size. There is mildly increased left ventricular wall thickness. The left ventricular systolic function is normal. The calculated ejection fraction is 58% by biplane method. There is no evidence of regional wall motion abnormalities. Diastolic function is indeterminate on the basis of available data. There is moderate septal asymmetric hypertrophy. Right Ventricle Mildly increased right ventricular cavity size. There is normal right ventricular systolic function. Atria Both atria are normal in size. Aortic Valve There is a normal trileaflet aortic valve. There is mild calcification of the aortic valve. There is no aortic valve stenosis. There is no aortic valve regurgitation. Mitral Valve There is mild mitral annular calcification. There is trace mitral valve regurgitation. There is no mitral valve stenosis. Pulmonic Valve The pulmonic valve is likely normal. Tricuspid Valve There is trace tricuspid valve regurgitation. There is no evidence of pulmonary hypertension. Great Vessels There is mild dilatation of the sinuses of Valsalva measuring 4.70 cm, mild dilatation of the ascending aorta measuring 4.10 cm, and mild dilatation of the aortic arch measuring 4.00 cm. Venous The inferior vena cava is mildly dilated and collapses less than 50% with inspiration. Pericardium/Pleural There is no evidence of pericardial effusion. Prior Study Comparison No significant change compared to prior study dated: 02/05/2022. Recommendations, Care & Conclusions No obvious valvular pathology seen on this study. Measurements 2D Linear Measurements IVSd: 1.37 0.6-0.9/0.6-1.0 cm LVIDd: 5.75 3.9-5.3/4.2-5.9 cm LVIDd Index: 2.50 2.4-3.2/2.2-3.1 cm/m2 LVIDs: 3.88 2.0-3.6 cm LVPWd: 1.16 0.7-1.1 cm LA Diam: 4.30 2.7-3.8/3.0-4.0 cm LAIDs Index: 1.87 1.5-2.3 cm/m2 LV Mass: 392.66 67-162/88-224 g LV Mass Index: 170.72 43-95/49-115 g/m2 LVOT Diam: 2.70 3.0+(-)1.3 cm 2D Systolic Function EF 4C: 51.30 >55% EF 2C: 66.30 >55% EF BiP: 57.80 >55% Mitral Valve MV Pk E: 1.15 MV PK A: 0.59 MV Decel Time: 240.00 E/A: 1.90 E'Lateral: 7.51 E'Medial: 6.42 E/E' Med: 17.90 E/E' Lat: 15.30 PHT: 70.00 MVA PHT: 3.14 Decel [place]: 4.80 Aortic Valve AoV Pk Sonu: 1.13 AoV Mn Sonu: 0.66 AoV VTI: 0.25 AoV Pk Grad: 5.00 Aov Mn Grad: 2.00 ALLY Cont.VTI: 4.12 LVOT LVOT Pk Sonu: 0.84 LVOT Mn Sonu: 0.53 LVOT VTI: 0.18 LVOT Pk Grad: 3.00 LVOT Mn Grad: 1.00 LVOT Diam: 2.70 LVOT Area: 5.73 Diastolic Function MV Pk E: 1.15 MV Pk A: 0.59 E/A: 1.90 E'Medial: 6.42 E/E' Med: 17.90 E' Laterial: 7.51 E/E' Lat: 15.30 Right Ventricle TAPSE (mm): 25.90 TVS' Sonu: 12.70 Tricuspid Valve RA Press: 15.00 Great Vessels Aorta Sinus of Valsalva: 4.70 2.0-3.5 cm Ao Asc: 4.10 2.1-3.4 cm Ao Arch: 4.00 Pulmonary Valve PV Pk Sonu: 0.92 Peak PV Grad: 3.00 Updated in Other Vendor System with Status of Final Manas Rutledge MD electronically signed on 08/06/2024 12:24:45 PM with status of Final
--- OUTSIDE RECORDS SUMMARY | 2024-08-05 15:18 | XMS_ITS | Encounter Summary ---
Author [facility] Address [address] [place] [address] Care Team Providers Care Fairing Worker Name Role Phone Yolande Nicholas DO Primary Care Pro vider Unavailable Anuj Priest DO Primary Care Provider Judy Gardner, Pcp Primary Care Provider Unavailabl e Encounter Details Date Type Department Care Team Description 10/07/2019 Photovoltaic Installer Report Medical Records [address] [place] [address] Dhruv Garcia MD Social History Tobacco Use [...] on filedocumented in this encounter Care Teams Fairing Worker Relationship Specialty Start Date End Date Yolande Nicholas DO PCP - General Internal Medicine 12/03/18 10/08/20 Anuj Priest DO PCP - General Internal Medicine 10/09/20 Jj, Pcp PCP - General Internal Medicine 06/17/21 documented as of this encounter
--- OUTSIDE RECORDS SUMMARY | 2024-08-05 15:18 | XMS_ITS | Encounter Summary ---
Author Organization [facility] Address [address] [place] [address] Care Team Providers Care Supplier Quality Name Role Phone Yolande Nicholas DO Primary Care Pro vider Unavailable Anuj Priest DO Primary Care Provider [facility], Pcp Primary Care Provider Unavailabl e Reason for Visit * Reason Onset Date Comments Faxed Refill 09/10/2019 Encounter Details Date Type Department Care Team Description 09/10/2019 Refill Adult Medicine [address] [address] Yolande Nicholas DO Faxed Refill Social History [...] N/A Patients current insurance carrier is: Pay[facility]: [facility] / Plan: MEDICARE FFS $[facility] [id number] / Product Type: MEDICARE [id number] documented in this encounter Plan of Treatment Not on file documented as of this encounter Visit Diagnoses Not on filedocumented in this encounter Care Teams Supplier Quality Relationship Specialty Start Date End Date Yolande Nicholas DO PCP - General Internal Medicine 12/03/18 10/08/20 Anuj Priest DO PCP - General Internal Medicine 10/09/20 2 [facility], Pcp PCP - General Internal Medicine 06/17/21 documented as of this encounter
--- OUTSIDE RECORDS SUMMARY | 2024-08-05 15:18 | XMS_ITS | Encounter Summary ---
Author Organization [facility] Address [address] [place] [address] Care Team Providers Care Co Founder & Ceo Name Role Phone Ghassan Burciaga MD Primary Care Provider Unavail able Pierre Arevalo MD Primary Care Provider Judy vailable Gerson Dawson MD Primary Care Provider Unavail able [facility], Pcp Primary Care Provider Unavailabl e Coleman Mccarthy MD Primary Care Provider Unavaila Ayo Demarco MD Primary Care Provider [phone] Annalee Jones MD Primary Care Provider Un available Pascual Nicholasabela DO Primary Care Pro vider Unavailable Anuj Priest DO Primary Care Provider Judy vailable [facility], Pcp Primary Care Provider Unavailabl e Encounter Details Date Type Department Care Team Description 10/28/2011 Electric Range Preparer Report Medical Records [address] [place] [address] Nhan Herbert MD Social History Tobacco Use [...] filedocumented in this encounter Care Teams Co Founder & Ceo Relationship Specialty Start Date End Date Ghassan Burciaga MD PCP - General 07/24/00 05/06/13 Pierre Arevalo MD PCP - General Internal Medicine 05/07/13 4 Gerson Dawson MD PCP - General Internal Medicine 01/30/14 03/20/14 [facility], Pcp PCP - General Internal Medicine 03/21/14 05/06/14 Coleman Mccarthy MD PCP - General Internal Medicine 05/07/14 07/18/16 Ayo Carpio MD [address] [place], [place] [id number] PCP - General Internal Medicine 07/19/16 01/05/17 Annalee Jones MD [address] [place], [place] [id number] PCP - General Internal Medicine 01/06/17 12/02/18 Yolande iNcholas DO [address] [place] [address] PCP - General Internal Medicine 12/03/18 10/08/20 Anuj Priest DO [address] [place] [address] PCP - General Internal Medicine 10/09/20 06/16/21 [facility], Pcp PCP - General Internal Medicine 06/17/21 documented as of this encounter
--- OUTSIDE RECORDS SUMMARY | 2024-08-05 15:18 | XMS_ITS | Encounter Summary ---
Author Organization [facility] Address [address] [place] [address] Care Team Providers Care Salvationist Name Role Phone Yolande Nicholas DO Primary Care Pro vider Unavailable Anuj Priest DO Primary Care Provider [facility], Pcp Primary Care Provider Unavailabl e Reason for Visit * Reason Onset Date Comments Provider Call Back 11/08/2019 Encounter Details Date Type Department Care Team Description 11/08/2019 Telephone Adult Medicine [address] [address] Yolande Nicholas DO Provider Call Back Social [...] Castillo - 11/08/2019 9:02 AM EDT Patients golf manager Ame , left a voicemail on patient services answering machine about their narcotic appeal decision. She would like a call back to know the outcome. Please give her a call and tellthem julian. Thank you. documented in this encounter Plan of Treatment Not on file documented as of this encounter Visit Diagnoses Not on filedocumented in this encounter Care Teams Salvationist Relationship Specialty Start Date End Date Yolande Nicholas DO PCP - General Internal Medicine 12/03/18 10/08/20 Anuj Priest DO PCP - General Internal Medicine 10/09/20 2 [facility], Pcp PCP - General Internal Medicine 06/17/21 documented as of this encounter
--- OUTSIDE RECORDS SUMMARY | 2024-08-05 15:18 | XMS_ITS | Encounter Summary ---
Author Organization [facility] Address [address] [place] [address] Care Team Providers Care Polisher Brass Name Role Phone Yolande Nicholas DO Primary Care Pro vider Unavailable Anuj Priest DO Primary Care Provider [facility], Pcp [facility] Encounter Details Date Type Department Care Team Description 09/26/2019 Pt. Non Urgent Medical Question Adult Medicine [address] [address] Alana Stinson MD [address] [place] [phone] Social History Tobacco Use Types Packs/Day [...] him, told him needs to fu / [facility] cards for both. Can consider change in [...] on filedocumented in this encounter Care Teams Polisher Brass Relationship Specialty Start Date End Date Yolande Nicholas DO PCP - General Internal Medicine 12/03/18 10/08/20 Anuj Priest DO PCP - General Internal Medicine 10/09/20 2 [facility], Pcp PCP - General Internal Medicine 06/17/21 documented as of this encounter
--- OUTSIDE RECORDS SUMMARY | 2024-08-05 15:18 | XMS_ITS | Encounter Summary ---
Author Organization [employer] [facility] Address [address] [place] [address] Care Team Providers Care Head Rose Grower Name Role Phone Ghassan Burciaga MD Primary Care Provider Unavail able Pierre Arevalo MD Primary Care Provider Judy vailable Gerson Dawson MD Primary Care Provider Unavail able Replaced By [facility], Pcp Primary Care Provider Unavailabl Coleman Sampson MD Primary Care Provider Unavaila Ayo Demarco MD Primary Care Provider [phone] Annalee Jones MD Primary Care Provider Un available Pascual Nicholasabela DO Primary Care Pro vider Unavailable Anuj Priest DO Primary Care Provider Judy vailable Replaced By [facility], Pcp Primary Care Provider Unavailabl e Encounter Details Date Type Department Care Team Description 06/27/2011 Business Doc Medical Records [address] [place] [address] Abstract, Provider Social History Tobacco Use Types [...] on filedocumented in this encounter Care Teams Head Rose Grower Relationship Specialty Start Date End Date Ghassan Burciaga MD PCP - General 07/24/00 05/06/13 Pierre Arevalo MD PCP - General Internal Medicine 05/07/13 4 Gerson Dawson MD PCP - General Internal Medicine 01/30/14 03/20/14 Replaced By [facility], Pcp PCP - General Internal Medicine 03/21/14 05/06/14 Coleman Mccarthy MD PCP - General Internal Medicine 05/07/14 07/18/16 Ayo Carpio MD [address] [place], [place] [id number] PCP - General Internal Medicine 07/19/16 01/05/17 Annalee Jones MD [address] [place], [place] [id number] PCP - General Internal Medicine 01/06/17 12/02/18 Yolande Nicholas DO [address] [place] [address] PCP - General Internal Medicine 12/03/18 10/08/20 Anuj Priest DO [address] [place] [address] PCP - General Internal Medicine 10/09/20 06/16/21 Replaced By [facility], Pcp PCP - General Internal Medicine 06/17/21 documented as of this encounter
--- OUTSIDE RECORDS SUMMARY | 2024-08-05 15:18 | XMS_ITS | Encounter Summary ---
Author Organization [facility] Address [address] [place] [address] Care Team Providers Care Microsoft Net Developer Name Role Phone Ghassan Burciaga MD Primary Care Provider Unavail able Pierre Arevalo MD Primary Care Provider Judy vailable Gerson Dawson MD Primary Care Provider Unavail able [facility], Pcp Primary Care Provider Unavailabl e Coleman Mccarthy MD Primary Care Provider Unavaila Ayo Demarco MD Primary Care Provider [phone] Annalee Jones MD Primary Care Provider Un available Kim Banegas Yolande DO Primary Care Pro vider Unavailable Anuj Priest DO Primary Care Provider Judy vailable [facility], Pcp Primary Care Provider Unavailabl e Encounter Details Date Type Department Care Team Description 06/25/2011 Pt. Non Urgent Medic al Question Medicine/Pediatrics - [address] [phone] Ghassan Burciaga MD Social History Tobacco Use [...] on filedocumented in this encounter Care Teams Microsoft Net Developer Relationship Specialty Start Date End Date Ghassan Burciaga MD PCP - General 07/24/00 05/06/13 Pierre Arevalo MD PCP - General Internal Medicine 05/07/13 4 Gerson Dawson MD PCP - General Internal Medicine 01/30/14 03/20/14 [facility], Pcp PCP - General Internal Medicine 03/21/14 05/06/14 Coleman Mccarthy MD PCP - General Internal Medicine 05/07/14 07/18/16 Ayo Carpio MD [address] [place] [address] PCP - General Internal Medicine 07/19/16 01/05/17 Annalee Jones MD [address] [place] [address] PCP - General Internal Medicine 01/06/17 12/02/18 Yolande Nicholas, [address] [address] PCP - General Internal Medicine 12/03/18 10/08/20 Anuj Priest, [address] [address] PCP - General Internal Medicine 10/09/20 06/16/21 [facility], Pcp PCP - General Internal Medicine 06/17/21 documented as of this encounter
--- OUTSIDE RECORDS SUMMARY | 2024-08-05 15:18 | XMS_ITS | Encounter Summary ---
Author Organization [facility] Address [address] [place] [address] Care Team Providers Care Hearse Driver Name Role Phone Ghassan Burciaga MD Primary Care Provider Unavail able Pierre Arevalo MD Primary Care Provider Judy vailable Gerson Dawson MD Primary Care Provider Unavail able [facility], Pcp Primary Care Provider Unavailabl e Coleman Mccarthy MD Primary Care Provider Unavaila Ayo Demarco MD Primary Care Provider [phone] Annalee Jones MD Primary Care Provider Un available Pascual Nicholasabela DO Primary Care Pro vider Unavailable Anuj Priest DO Primary Care Provider Judy vailable [facility], Pcp Primary Care Provider Unavailabl e Encounter Details Date Type Department Care Team Description 07/05/2011 Band Saw Runner Report Medical Records [address] [place] [address] Abstract, Provider Social History Tobacco Use Types [...] on filedocumented in this encounter Care Teams Hearse Driver Relationship Specialty Start Date End Date Ghassan Burciaga MD PCP - General 07/24/00 05/06/13 Pierre Arevalo MD PCP - General Internal Medicine 05/07/13 4 Gerson Dawson MD PCP - General Internal Medicine 01/30/14 03/20/14 [facility], Pcp PCP - General Internal Medicine 03/21/14 05/06/14 Coleman Mccarthy MD PCP - General Internal Medicine 05/07/14 07/18/16 Ayo Carpio MD [address] [place], [place] [id number] PCP - General Internal Medicine 07/19/16 01/05/17 Annalee Jones MD [address] [place], [place] [id number] PCP - General Internal Medicine 01/06/17 12/02/18 Yolande Nicholas DO [address] [place] [address] PCP - General Internal Medicine 12/03/18 10/08/20 Anuj Priest DO [address] [place] [address] PCP - General Internal Medicine 10/09/20 06/16/21 [facility], Pcp PCP - General Internal Medicine 06/17/21 documented as of this encounter
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
--- OUTSIDE RECORDS SUMMARY | 2024-08-05 15:18 | XMS_ITS | Encounter Summary ---
Author Organization [facility] Address [address] [place] [address] Care Team Providers Care Ship'S Surveyor Name Role Phone Yolande Nicholas DO Primary Care Pro vider Unavailable Anuj Priest DO Primary Care Provider [facility], Pcp Primary Care Provider Unavailabl e Reason for Visit * Reason Onset Date Comments Faxed Order 10/05/2019 [facility] Encounter Details Date Type Department Care Team Description 10/05/2019 Telephone Adult Medicine [address] [address] Yolande Nicholas DO Faxed Order ([facility]) Social History Tobacco Use Types Packs/Day Years [...] review, sign and fax back orders to [facility]. documented in this encounter Plan of Treatment Not on file documented as of this encounter Visit Diagnoses Not on filedocumented in this encounter Care Teams Ship'S Surveyor Relationship Specialty Start Date End Date Yolande Nicholas DO PCP - General Internal Medicine 12/03/18 10/08/20 Anuj Priest DO PCP - General Internal Medicine 10/09/20 2 [facility], Pcp PCP - General Internal Medicine 06/17/21 documented as of this encounter
--- OUTSIDE RECORDS SUMMARY | 2024-08-05 15:18 | XMS_ITS | Encounter Summary ---
Author Organization [facility] Address [address] [place] [address] Care Team Providers Care Corporate Strategy Associate Name Role Phone Yolande Nicholas DO Primary Care Pro vider Unavailable Anuj Priest DO Primary Care Provider Judy Gardner, Pcp Primary Care Provider Unavailabl e Encounter Details Date Type Department Care Team Description 10/08/2019 Home Health Certification Medical Records [address] [place] [address] Home, [facility] [address] [place] [address] Social History Tobacco Use Types Packs/Day Years [...] filedocumented in this encounter Care Teams Corporate Strategy Associate Relationship Specialty Start Date End Date Yolande Nicholas DO PCP - General Internal Medicine 12/03/18 10/08/20 Anuj Priest DO PCP - General Internal Medicine 10/09/20 Molly Gardner, Pcp PCP - General Internal Medicine 06/17/21 documented as of this encounter
--- OUTSIDE RECORDS SUMMARY | 2024-08-05 15:18 | XMS_ITS | Encounter Summary ---
Author Organization [facility] Address [address] [place] [address] Care Team Providers Care Clean Up Worker Name Role Phone Yolande Nicholas DO Primary Care Pro vider Unavailable Anuj Priest DO Primary Care Provider [facility], Pcp Primary Care Provider Unavailabl e Reason for Visit * Reason Onset Date Comments VNA Call 09/16/2019 Encounter Details Date Type Department Care Team Description 09/16/2019 Telephone Internal Medicine - [address], [address] [place], [place] [id number] Alana Stinson MD [address] [place] [phone] VNA Call Social History Tobacco Use [...] VNA CALL Which VNA office is calling? [facility] Full name of caller: Kalie The [...] in this encounter Care Teams Clean Up Worker Relationship Specialty Start Date End Date Yolande Nicholas DO PCP - General Internal Medicine 12/03/18 10/08/20 Anuj Priest DO PCP - General Internal Medicine 10/09/20 2 [facility], Pcp PCP - General Internal Medicine 06/17/21 documented as of this encounter
--- OUTSIDE RECORDS SUMMARY | 2024-08-05 15:18 | XMS_ITS | Encounter Summary ---
Author Organization [facility] Address [address] [place] [address] Care Team Providers Care Insurance Licensing Supervisor Name Role Phone Ghassan Burciaga MD Primary Care Provider Unavail able Pierre Arevalo MD Primary Care Provider Judy vailable Gerson Dawson MD Primary Care Provider Unavail able [facility], Pcp Primary Care Provider Unavailabl Coleman Sampson MD Primary Care Provider Unavaila Ayo Demarco MD Primary Care Provider [phone] Annalee Jones MD Primary Care Provider Un available Pascual Nicholasabela DO Primary Care Pro vider Unavailable Anuj Priest DO Primary Care Provider Judy vailable [facility], Pcp Primary Care Provider Unavailabl e Encounter Details Date Type Department Care Team Description 06/24/2011 Business Doc Medical Records [address] [place] [address] Abstract, Provider Social History Tobacco Use Types [...] filedocumented in this encounter Care Teams Insurance Licensing Supervisor Relationship Specialty Start Date End Date Ghassan Burciaga MD PCP - General 07/24/00 05/06/13 Pierre Arevalo MD PCP - General Internal Medicine 05/07/13 4 Gerson Dawson MD PCP - General Internal Medicine 01/30/14 03/20/14 [facility], Pcp PCP - General Internal Medicine 03/21/14 05/06/14 Coleman Mccarthy MD PCP - General Internal Medicine 05/07/14 07/18/16 Ayo Carpio MD [address] [place], [place] [id number] PCP - General Internal Medicine 07/19/16 01/05/17 Annalee Jones MD [address] [place], [place] [id number] PCP - General Internal Medicine 01/06/17 12/02/18 Yolande Nicholas DO [address] [place] [address] PCP - General Internal Medicine 12/03/18 10/08/20 Anuj Priest DO [address] [place] [address] PCP - General Internal Medicine 10/09/20 06/16/21 [facility], Pcp PCP - General Internal Medicine 06/17/21 documented as of this encounter
--- OUTSIDE RECORDS SUMMARY | 2024-08-05 15:19 | XMS_ITS | Encounter Summary ---
Author Organization [facility] Address [address] [place] [address] Care Team Providers Care Pulp Maker Name Role Phone Ayo Carpio MD Primary Care Provider [phone] Annalee Jones MD Primary Care Provider Un available Yolande Nicholas DO Primary Care Pro vider Unavailable Anuj Priest DO Primary Care Provider Judy [facility], Pcp Primary Care Provider Unavailabl e Encounter Details Date Type Department Care Team Description 11/28/2016 [facility] Medical Records [address] [place] [address] Abstract, Provider Social History Tobacco Use Types [...] on filedocumented in this encounter Care Teams Pulp Maker Relationship Specialty Start Date End Date Ayo Carpio MD [address] [place] [id number] PCP - General Internal Medicine 07/19/16 01/05/17 Annalee Jones MD [address] [place] [address] PCP - General Internal Medicine 01/06/17 12/02/18 Yolande Nicholas, [address] [place] [address] PCP - General Internal Medicine 12/03/18 10/08/20 Anuj Priest DO [address] [place] [address] PCP - General Internal Medicine 10/09/20 06/16/21 [facility], Pcp [address] [place], [place] [id number] PCP - General Internal Medicine 06/17/21 documented as of this encounter
--- OUTSIDE RECORDS SUMMARY | 2024-08-05 15:19 | XMS_ITS | Encounter Summary ---
Author Organization [facility] Address [address] [place] [address] Care Team Providers Care Pot Puller Name Role Phone Pierre Arevalo MD Primary Care Provider Judy vailable Gerson Dawson MD Primary Care Provider Unavail able [facility], Pcp Primary Care Provider Unavailabl Coleman Sampson MD Primary Care Provider Unavaila Ayo Demarco MD Primary Care Provider [phone] Annalee Jones MD Primary Care Provider Un available Yolande Nicholas DO Primary Care Pro vider Unavailable Anuj Priest DO Primary Care Provider Judy vailable [facility], Pcp Primary Care Provider Unavailabl e Encounter Details Date Type Department Care Team Description 10/18/2013 Refill Medicine/Pediatrics - [address] [phone] Madyson Vazquez PA-C Social History Tobacco Use [...] MG tablet [Madyson Vazquez PA-C] Preferred pharmacy: [facility] [place] [address] BREANN OLIVAS Comment: To дмитрий Meyer in . [place] 4pills 100mg documented in this encounter Plan of Treatment Not on file documented as of this encounter Visit Diagnoses Not on filedocumented in this encounter Care Teams Pot Puller Relationship Specialty Start Date End Date Pierre Arevalo MD PCP - General Internal Medicine 05/07/13 4 Gerson Dawson MD PCP - General Internal Medicine 01/30/14 03/20/14 [facility], Pcp PCP - General Internal Medicine 03/21/14 05/06/14 Coleman Mccarthy MD PCP - General Internal Medicine 05/07/14 07/18/16 Ayo Carpio MD [address] [place], [place] [phone] PCP - General Internal Medicine 07/19/16 01/05/17 Annalee Jones MD [address] [place] [address] PCP - General Internal Medicine 01/06/17 12/02/18 Yolande Nicholas, DO [address] [place] [address] PCP - General Internal Medicine 12/03/18 10/08/20 Anuj Priest, DO [address] [place] [address] PCP - General Internal Medicine 10/09/20 06/16/21 [facility], Pcp PCP - General Internal Medicine 06/17/21 documented as of this encounter
--- OUTSIDE RECORDS SUMMARY | 2024-08-05 15:19 | XMS_ITS | Encounter Summary ---
Author Organization [facility] Address [address] [place] [address] Care Team Providers Care Inspector Aide Name Role Phone Yolande Nicholas DO Primary Care Pro vider Unavailable Anuj Priest DO Primary Care Provider Judy Gardner, Pcp Primary Care Provider Unavailabl e Encounter Details Date Type Department Care Team Description 11/28/2019 Bulb Inspector Report Medical Records [address] [place] [address] Cedrick Siddiqui Social History Tobacco Use Types [...] filedocumented in this encounter Care Teams Inspector Aide Relationship Specialty Start Date End Date Yolande Nicholas DO PCP - General Internal Medicine 12/03/18 10/08/20 Anuj Priest DO PCP - General Internal Medicine 10/09/20 2 J[facility], Pcp PCP - General Internal Medicine 06/17/21 documented as of this encounter
--- OUTSIDE RECORDS SUMMARY | 2024-08-05 15:19 | XMS_ITS | Encounter Summary ---
Author Organization [facility] Address [address] [place] [address] Care Team Providers Care Microbiology Teacher Name Role Phone Yolande Nicholas DO Primary Care Pro vider Unavailable Anuj Priest DO Primary Care Provider Judy Gardner, Pcp Primary Care Provider Unavailabl e Encounter Details Date Type Department Care Team Description 08/29/2019 SNF discharge summary Medical Records [address] [place] [address] Abstract, Provider Social History Tobacco Use Types [...] on filedocumented in this encounter Care Teams Microbiology Teacher Relationship Specialty Start Date End Date Yolande Nicholas DO PCP - General Internal Medicine 12/03/18 10/08/20 Anuj Priest DO PCP - General Internal Medicine 10/09/20 2 J[facility], Pcp PCP - General Internal Medicine 06/17/21 documented as of this encounter
--- OUTSIDE RECORDS SUMMARY | 2024-08-05 15:19 | XMS_ITS | Encounter Summary ---
Author Organization [facility] Address [address] [place] [address] Care Team Providers Care Rn Sexual Assault Name Role Phone Yolande Nicholas DO Primary Care Pro vider Unavailable Anuj Priest DO Primary Care Provider Judy Gardner, Pcp Primary Care Provider Unavailabl e Encounter Details Date Type Department Care Team Description 10/23/2019 Release of Information Medical Records [address] [place] [address] Abstract, Provider Social History Tobacco Use Types [...] filedocumented in this encounter Care Teams Rn Sexual Assault Relationship Specialty Start Date End Date Yolande Nicholas DO PCP - General Internal Medicine 12/03/18 10/08/20 Anuj Priest DO PCP - General Internal Medicine 10/09/20 2 J[facility], Pcp PCP - General Internal Medicine 06/17/21 documented as of this encounter
--- OUTSIDE RECORDS SUMMARY | 2024-08-05 15:19 | XMS_ITS | Encounter Summary ---
Author Organization [facility] Address [address] [place] [address] Care Team Providers Care Wig Comber Name Role Phone Yolande Nicholas DO Primary Care Pro vider Unavailable Anuj Priest DO Primary Care Provider Judy Gardner, Pcp Primary Care Provider Unavailabl e Encounter Details Date Type Department Care Team Description 12/26/2019 Hospital Medical Records [address] [place] [address] Social History Tobacco Use Types Packs/Day Years [...] on filedocumented in this encounter Care Teams Wig Comber Relationship Specialty Start Date End Date Yolande Nicholas DO PCP - General Internal Medicine 12/03/18 10/08/20 Anuj Priest DO PCP - General Internal Medicine 10/09/20 2 Jose G Gardner PCP - General Internal Medicine 06/17/21 documented as of this encounter
--- OUTSIDE RECORDS SUMMARY | 2024-08-05 15:19 | XMS_ITS | Encounter Summary ---
Author Organization [facility] Address [address] [place] [address] Care Team Providers Care Water Meter Mechanic Name Role Phone Yolande Nicholas DO Primary Care Pro vider Unavailable Anuj Priest DO Primary Care Provider [facility], Pcp Primary Care Provider Unavailabl e Reason for Visit * Reason Onset Date Comments VNA Call 01/28/2020 Encounter Details Date Type Department Care Team Description 01/28/2020 Telephone Adult [address] [address] Yolande Nicholas DO VNA Call Social History [...] Kan R.N. - 01/28/2020 8:57 AM EDT [phone] (home) Pt is being seen by surgeons [...] filedocumented in this encounter Care Teams Water Meter Mechanic Relationship Specialty Start Date End Date Yolande Nicholas DO PCP - General Internal Medicine 12/03/18 10/08/20 Anuj Priest DO PCP - General Internal Medicine 10/09/[address] [place] [address], Pcp PCP - General Internal Medicine 06/17/21 documented as of this encounter
--- OUTSIDE RECORDS SUMMARY | 2024-08-05 15:19 | XMS_ITS | Encounter Summary ---
Author Organization [facility] Address [address] [place] [address] Care Team Providers Care Operational Risk Consultant Name Role Phone Yolande Nicholas DO Primary Care Pro vider Unavailable Anuj Priest DO Primary Care Provider [facility], Pcp Primary Care Provider Unavailabl e Reason for Visit * Reason Onset Date Comments Faxed Order 02/14/2020 Encounter Details Date Type Department Care Team Description 02/14/2020 Telephone Adult Medicine [address] [address] Yolande Nicholas DO Faxed Order Social History [...] on filedocumented in this encounter Care Teams Operational Risk Consultant Relationship Specialty Start Date End Date Yolande Nicholas DO PCP - General Internal Medicine 12/03/18 10/08/20 Anuj Priest DO PCP - General Internal Medicine 10/09/[address] [place] [address], Pcp PCP - General Internal Medicine 06/17/21 documented as of this encounter
--- OUTSIDE RECORDS SUMMARY | 2024-08-05 15:19 | XMS_ITS | Encounter Summary ---
Author Organization [employer] Address [address] [facility] 7 [place] [address] Care Team Providers Care Chicken Stuffer Name Role Phone Sesar Pereyra MD Primary Care Provider [phone] Encounter Details Date Type Department Care Team ([facility] st Contact Info) Description 07/10/2024 Telephone [facility] [address] [place], [place] [phone] Sesar Pereyra MD [address] [place] [address] Social History Tobacco Use Types Packs/Day Years [...] tablet was sent to the incorrect pharmacy. [facility] requested a transfer but was til to contact pcp office . Preferred pharmacy [facility] [address] Pt [facility] has been without meds. documented in this encounter Plan of Treatment Upcoming Encounters Date Type Department Care Team ([facility] st Contact Info) Description 09/11/2024 10:30 AM EDT Office Visit [facility] [address] [place] [address] Sesar Pereyra MD [address] [place] [address] documented as of this encounter Visit Diagnoses Not on filedocumented in this encounter Additional Health Concerns Assessment Noted Time PHQ-9 Depression Total Score: 16 024 10:59 AM EDT documented as of this encounter Care Teams Chicken Stuffer Relationship Specialty Start Date End Date Sesar Pereyra MD [address] [place] [address] PCP - General Internal Medicine 03/01/21 [facility] 03/22/24 documented as of this encounter
--- OUTSIDE RECORDS SUMMARY | 2024-08-05 15:19 | XMS_ITS | Encounter Summary ---
Author Organization [facility] Address [address] [place] [address] Care Team Providers Care Client Project Coordinator Name Role Phone Ghassan Burciaga MD Primary Care Provider Unavail able Pierre Arevalo MD Primary Care Provider Judy vailable Gerson Dawson MD Primary Care Provider Unavail able [facility], Pcp Primary Care Provider Unavailabl e Coleman Mccarthy MD Primary Care Provider Unavaila Ayo Demarco MD Primary Care Provider [phone] Annalee Jones MD Primary Care Provider Un available Pascual Nicholasabela DO Primary Care Pro vider Unavailable Anuj Priest DO Primary Care Provider Judy vailable [facility], Pcp Primary Care Provider Unavailabl e Encounter Details Date Type Department Care Team Description 08/29/2011 Release of Information Medical Records [address] [place] [address] Abstract, Provider Social History Tobacco Use Types [...] filedocumented in this encounter Care Teams Client Project Coordinator Relationship Specialty Start Date End Date Ghassan Burciaga MD PCP - General 07/24/00 05/06/13 Pierre Arevalo MD PCP - General Internal Medicine 05/07/13 4 Gerson Dawson MD PCP - General Internal Medicine 01/30/14 03/20/14 [facility], Pcp PCP - General Internal Medicine 03/21/14 05/06/14 Coleman Mccarthy MD PCP - General Internal Medicine 05/07/14 07/18/16 Ayo Carpio MD [address] [place], [place] [phone] PCP - General Internal Medicine 07/19/16 01/05/17 Annalee Jones MD [address] [place], [place] [phone] PCP - General Internal Medicine 01/06/17 12/02/18 Yolande Nicholas DO [address] [place] [address] PCP - General Internal Medicine 12/03/18 10/08/20 Anuj Priest DO [address] [place] [address] PCP - General Internal Medicine 10/09/20 06/16/21 [facility], Pcp PCP - General Internal Medicine 06/17/21 documented as of this encounter
--- OUTSIDE RECORDS SUMMARY | 2024-08-05 15:19 | XMS_ITS | Encounter Summary ---
Author Organization [facility] Address [address] [place] [address] Care Team Providers Care Electric Motor Repair Supervisor Name Role Phone Coleman Mccarthy MD Primary Care Provider Unavaila ble Ayo Carpio MD Primary Care Provider [phone] Annalee Jones MD Primary Care Provider Un available Yolande Nicholas DO Primary Care Pro vider Unavailable Anuj Priest DO Primary Care Provider [facility], Pcp Primary Care Provider Unavailabl e Encounter Details Date Type Department Care Team Description 05/19/2015 Portfolio Manager Report Medical Records [address] [place] [address] Anuj [place]on Social History Tobacco Use Types [...] on filedocumented in this encounter Care Teams Electric Motor Repair Supervisor Relationship Specialty Start Date End Date Coleman Mccarthy MD PCP - General Internal Medicine 05/07/14 07/18/16 Ayo Carpio MD [address] [place] [address] PCP - General Internal Medicine 07/19/16 01/05/17 Annalee Jones MD [address] [place] [address] PCP - General Internal Medicine 01/06/17 12/02/18 Yolande Nicholas, [address] [place] [address] PCP - General Internal Medicine 12/03/18 10/08/20 Anuj Priest DO [address] [place] [address] PCP - General Internal Medicine 10/09/20 06/16/21 [facility], Pcp [address] [place] [address] PCP - General Internal Medicine 06/17/21 documented as of this encounter
--- OUTSIDE RECORDS SUMMARY | 2024-08-05 15:19 | XMS_ITS | Encounter Summary ---
Author Organization [facility] Address [address] [place] [address] Care Team Providers Care Construction Services Technician Name Role Phone Yolande Nicholas DO Primary Care Pro vider Unavailable Anuj Priest DO Primary Care Provider [facility], Pcp Primary Care [facility] Encounter Details Date Type Department Care Team Description 07/02/2019 Pt. Non Urgent Medic al Question Adult Medicine [address] [address] Yolande Nicholas DO Social History Tobacco Use [...] filedocumented in this encounter Care Teams Construction Services Technician Relationship Specialty Start Date End Date Yolande Nicholas DO PCP - General Internal Medicine 12/03/18 10/08/20 Anuj Priest DO PCP - General Internal Medicine 10/09/[address] [place] [address], Pcp PCP - General Internal Medicine 06/17/21 documented as of this encounter
--- OUTSIDE RECORDS SUMMARY | 2024-08-05 15:19 | XMS_ITS | Encounter Summary ---
Author Organization [facility] Address [address] [place] [address] Care Team Providers Care Truck Rental Manager Name Role Phone Yolande Nicholas DO Primary Care Pro vider Unavailable Anuj Priest DO Primary Care Provider [facility], Pcp Primary Care Provider Unavailabl e Reason for Visit * Reason Onset Date Comments Information Needed 09/06/2019 Encounter Details Date Type Department Care Team Description 09/06/2019 Telephone Adult [address] [address] Yolande Nicholas DO Information Needed Social History [...] Perez M.A. - 09/06/2019 2:36 PM EDT [facility] - [phone] Left detailed msg for pt to call above number to request the discharge summary, Unable to get the D/C summary through [employer] * Telephone Encounter - Judith Cardenas - 09/06/2019 10:47 AM EDT Patient's girlfriend Ame is requesting the discharge summary to be faxed to Dr. Baker to [phone] * Telephone Encounter - Sabina Zaman - 09/06/2019 9:49 AM EDT Ame, the patient girlfriend is calling stating that the patient needs the discharge summary from [facility] to sent over to [facility], to Dr. Duc Baker for his audio visit 09/06/2019 in order for the patient to continue to get prescribe his anxiety medication. Please advise. documented in this encounter Plan of Treatment Not on file documented as of this encounter Visit Diagnoses Not on filedocumented in this encounter Care Teams Truck Rental Manager Relationship Specialty Start Date End Date Yolande Nicholas DO PCP - General Internal Medicine 12/03/18 10/08/20 Anuj Priest DO PCP - General Internal Medicine 10/09/[address] [place] [address], Pcp PCP - General Internal Medicine 06/17/21 documented as of this encounter
--- OUTSIDE RECORDS SUMMARY | 2024-08-05 15:19 | XMS_ITS | Encounter Summary ---
Author Organization [employer] Address [address] [facility] 7t [place] [address] Care Team Providers Care Staffing Director Name Role Phone Sesar Pereyra MD Primary Care Provider [phone]- [phone] Encounter Details Date Type Department Care Team ([facility] st Contact Info) Description 04/29/2024 Orders Only [facility] MED & PEDS [address] [place], [place] [phone] Sesar Pereyra MD [address] [place] [address] Closed nondisplaced fracture of acromial end of [...] [facility] [address] [place] [address] Sesar Pereyra MD [address] [place] [address] documented as of this encounter Visit Diagnoses Diagnosis Closed nondisplaced fracture of acromial end of right clavicle, initial encounter documented in this encounter Additional Health Concerns Assessment Noted Time PHQ-9 Depression Total Score: 16 024 10:59 AM EDT documented as of this encounter Care Teams Staffing Director Relationship Specialty Start Date End Date Sesar Pereyra MD [address] [place] [address] PCP - General Internal Medicine 03/01/21 [facility] 03/22/24 documented as of this encounter
--- OUTSIDE RECORDS SUMMARY | 2024-08-05 15:19 | XMS_ITS | Encounter Summary ---
Author Organization [email or web address] [facility] Address [address] [place] [address] Care Team Providers Care Supervisor Electron Tube Processing Name Role Phone Ghassan Burciaga MD Primary [...] Team Description 01/19/2007 Hospital Medical Records [address] [place] [address] Cathie Hopkins Social History Tobacco Use Types [...] filedocumented in this encounter Care Teams Supervisor Electron Tube Processing Relationship Specialty Start Date End Date Ghassan Burciaga MD PCP - General 07/24/00 05/06/13 Pierre Arevalo MD PCP - General Internal Medicine 05/07/13 4 Gerson Dawson MD PCP - General Internal Medicine 01/30/14 03/20/14 [facility], Pcp PCP - General Internal Medicine 03/21/14 05/06/14 Coleman Mccarthy MD PCP - General Internal Medicine 05/07/14 07/18/16 Ayo Carpio MD [address] [place], [place] [id number] PCP - General Internal Medicine 07/19/16 01/05/17 Annalee Jones MD [address] [place], [place] [id number] PCP - General Internal Medicine 01/06/17 12/02/18 oYlande Nicholas DO [address] [place] [address] PCP - General Internal Medicine 12/03/18 10/08/20 Anuj Priest DO [address] [place] [address] PCP - General Internal Medicine 10/09/20 06/16/21 [facility], Pcp PCP - General Internal Medicine 06/17/21 documented as of this encounter
--- OUTSIDE RECORDS SUMMARY | 2024-08-05 15:19 | XMS_ITS | Encounter Summary ---
Author Organization [facility] Address [address] [place] [address] Care Team Providers Care E Commerce Merchant Name Role Phone Yolande Nicholas DO Primary Care Pro vider Unavailable Anuj Priest DO Primary Care Provider Judy Gardner, Pcp Primary Care Provider Unavailabl e Encounter Details Date Type Department Care Team Description 12/25/2019 Hospital Medical Records [address] [place] [address] Cedrick Siddiqui Social History Tobacco Use Types [...] on filedocumented in this encounter Care Teams E Commerce Merchant Relationship Specialty Start Date End Date Yolande Nicholas DO PCP - General Internal Medicine 12/03/18 10/08/20 Anuj Priest DO PCP - General Internal Medicine 10/09/20 2 Jj, Pcp PCP - General Internal Medicine 06/17/21 documented as of this encounter
--- OUTSIDE RECORDS SUMMARY | 2024-08-05 15:19 | XMS_ITS | Encounter Summary ---
Author Organization [employer] Address 75 [facility] 7t [place] [address] Care Team Providers Care Manager Infrastructure Name Role Phone Sesar Pereyra MD Primary Care Provider [phone]- [phone] Reason for Visit * Reason Onset Date Comments Med Refill 04/26/2024 Encounter Details Date Type Department Care Team ([facility] st Contact Info) Description 04/26/2024 Telephone [facility] MEDICINE [address] [place] [address] Sesar Pereyra MD [address] [place] [address] Med Refill Social History Tobacco Use Types [...] 7.5 MG tablet To be sent to: [facility] - [place], [place] - [address] [facility] documented in this encounter Plan of Treatment Upcoming Encounters Date Type Department Care Team (Late st Contact Info) Description 09/11/2024 10:30 AM EDT Office Visit [facility] MED & PEDS [address] [place] [address] Sesar Pereyra MD [address] [place] [address] documented as of this encounter Visit Diagnoses Not on filedocumented in this encounter Additional Health Concerns Assessment Noted Time PHQ-9 Depression Total Score: 16 024 10:59 AM EDT documented as of this encounter Care Teams Manager Infrastructure Relationship Specialty Start Date End Date Sesar Pereyra MD [address] [place] [address] PCP - General Internal Medicine 03/01/21 [facility] 03/22/24 documented as of this encounter
--- OUTSIDE RECORDS SUMMARY | 2024-08-05 15:19 | XMS_ITS | Encounter Summary ---
Author Organization [facility] Address [address] [place] [address] Care Team Providers Care Financial Quantitative Analyst Name Role Phone Yolande Nicholas DO Primary Care Pro vider Unavailable Anuj Priest DO Primary Care Provider [facility], Pcp Primary Care Provider Unavailabl e Encounter Details Date Type Department Care Team Description 09/04/2019 Telephone Internal Medicine - [address], [address] [place] [address] Alana Stinson MD [address] [place] [phone] Social History Tobacco Use Types Packs/Day [...] PM EDT Spoke to someone from [facility] rehab they will send discharge notes. * Telephone Encounter - Alana Stinson MD - 09/04/2019 11:48 AM EDT PLS GET DISCHARGE SUMMARY FROM [facility] [place], documented in this encounter Plan of Treatment Not on file documented as of this encounter Visit Diagnoses Not on filedocumented in this encounter Care Teams Financial Quantitative Analyst Relationship Specialty Start Date End Date Yolande Nicholas DO PCP - General Internal Medicine 12/03/18 10/08/20 Anuj Priest DO PCP - General Internal Medicine 10/09/20 2 [facility], Pcp PCP - General Internal Medicine 06/17/21 documented as of this encounter
--- OUTSIDE RECORDS SUMMARY | 2024-08-05 15:19 | XMS_ITS | Encounter Summary ---
Author Organization [facility] Address [address] [place] [address] Care Team Providers Care Carbon Setter Name Role Phone Ghassan Burciaga MD Primary Care Provider Unavail able Pierre Arevalo MD Primary Care Provider Judy vailable Gerson Dawson MD Primary Care Provider Unavail able [facility], Pcp Primary Care Provider Unavailabl e Coleman Mccarthy MD Primary Care Provider Unavaila Ayo Demarco MD Primary Care Provider [phone] Annalee Jones MD Primary Care Provider Un available Pascual Nicholasabela DO Primary Care Pro vider Unavailable Anuj Priest DO Primary Care Provider Judy vailable [facility], Pcp Primary Care Provider Unavailabl e Encounter Details Date Type Department Care Team Description 11/07/2012 Pt. Non Urgent Medic al Question Medicine/Pediatrics - [address] [phone] Ghassan Burciaga MD Social History Tobacco Use [...] MonNov 07, 2012 3:01 PM Subject: prescription [id number] Rohith Leung documented in this encounter Plan of Treatment Not on file documented as of this encounter Visit Diagnoses Not on filedocumented in this encounter Care Teams Carbon Setter Relationship Specialty Start Date End Date Ghassan Burciaga MD PCP - General 07/24/00 05/06/13 Pierre Arevalo MD PCP - General Internal Medicine 05/07/13 4 Gerson Dawson MD PCP - General Internal Medicine 01/30/14 03/20/14 [facility], Pcp PCP - General Internal Medicine 03/21/14 05/06/14 Coleman Mccarthy MD PCP - General Internal Medicine 05/07/14 07/18/16 Ayo Carpio MD [address] [place], [place] [phone] PCP - General Internal Medicine 07/19/16 01/05/17 Annalee Jones MD [address] [place] [address] PCP - General Internal Medicine 01/06/17 12/02/18 Yolande Nicholas, DO [address] [place] [address] PCP - General Internal Medicine 12/03/18 10/08/20 Anuj Priest, [address] [place] [address] PCP - General Internal Medicine 10/09/20 06/16/21 [facility], Pcp PCP - General Internal Medicine 06/17/21 documented as of this encounter
--- OUTSIDE RECORDS SUMMARY | 2024-08-05 15:19 | XMS_ITS | Encounter Summary ---
Author Organization [facility] Address [address] [place] [address] Care Team Providers Care Rehabilitation Manager Name Role Phone Yolande Nicholas DO Primary Care Pro vider Unavailable Anuj Priest DO Primary Care Provider [facility], Pcp Primary Care Provider Unavailabl e Reason for Visit * Reason Onset Date Comments [facility]NA Call 12/28/2019 Encounter Details Date Type Department Care Team Description 12/28/2019 Telephone Adult Urgent Care - [address] [address] Yolande Nicholas DO VNA Call Social History [...] VNA CALL Which [facility] office is calling? [place] [facility] Full name of caller: Bev The [...] on filedocumented in this encounter Care Teams Rehabilitation Manager Relationship Specialty Start Date End Date Yolande Nicholas DO PCP - General Internal Medicine 12/03/18 10/08/20 Anuj Priest DO PCP - General Internal Medicine 10/09/[address] [place] [address], Pcp PCP - General Internal Medicine 06/17/21 documented as of this encounter
--- OUTSIDE RECORDS SUMMARY | 2024-08-05 15:19 | XMS_ITS | Encounter Summary ---
Author Organization [employer] [facility] Address [address] [place] [address] Care Team Providers Care Material Damage Appraiser Name Role Phone Coleman Mccarthy MD Primary Care Provider Unavaila ble Ayo Carpio MD Primary Care Provider Annalee Jones MD Primary Care Provider Un available Yolande Nicholas DO Primary Care Pro vider Unavailable Anuj Priest DO Primary Care Provider [facility], Pcp Primary Care Provider Unavailabl e Encounter Details Date Type Department Care Team Description 07/30/2014 PLUMBER SUPERVISOR/[employer] Report Medical Records [address] [place] [address] Abstract, Provider Social History Tobacco Use Types [...] on filedocumented in this encounter Care Teams Material Damage Appraiser Relationship Specialty Start Date End Date Coleman Mccarthy MD PCP - General Internal Medicine 05/07/14 07/18/16 Ayo Carpio MD [address] [place] [id number] PCP - General Internal Medicine 07/19/16 01/05/17 Annalee Jones MD [address] [place] [address] PCP - General Internal Medicine 01/06/17 12/02/18 Yolande Nicholas, [address] [place] [address] PCP - General Internal Medicine 12/03/18 10/08/20 Anuj Priest DO [address] [place] [address] PCP - General Internal Medicine 10/09/20 06/16/21 [facility], Pcp [address] [place] [address] PCP - General Internal Medicine 06/17/21 documented as of this encounter
--- OUTSIDE RECORDS SUMMARY | 2024-08-05 15:19 | XMS_ITS | Encounter Summary ---
Author Organization [employer] Address 75 [facility] 7t [place] [address] Care Team Providers Care Emergency Vehicle Operator Name Role Phone Sesar Pereyra MD Primary Care Provider [phone]- [phone] Encounter Details Date Type Department Care Team (Late st Contact Info) Description 06/24/2024 Orders Only [facility] MEDICINE [address] [place] [address] Sesar Pereyra MD [address] [place] [address] Paroxysmal atrial fibrillation (CMS/HCC) (Primary Dx) Social [...] Upcoming Encounters Date Type Department Care Team ([facility] st Contact Info) Description 09/11/2024 10:30 AM EDT Office Visit [facility] MED & PEDS [address] [place] [address] Sesar Pereyra MD [address] [place] [address] documented as of this encounter Visit Diagnoses Diagnosis Paroxysmal atrial fibrillation (CMS/HCC)- Primary Atrial fibrillation documented in this encounter Additional Health Concerns Assessment Noted Time PHQ-9 Depression Total Score: 16 024 10:59 AM EDT documented as of this encounter Care Teams Emergency Vehicle Operator Relationship Specialty Start Date End Date Sesar Pereyra MD [address] [place] [address] PCP - General Internal Medicine 03/01/21 [facility] 03/22/24 documented as of this encounter
--- OUTSIDE RECORDS SUMMARY | 2024-08-05 15:19 | XMS_ITS | Encounter Summary ---
Author Organization [employer] Address [address] [facility] 7t [place] [address] Care Team Providers Care Extension Course Counselor Name Role Phone Sesar Pereyra MD Primary Care Provider [phone]- [phone] Reason for Visit * Reason Onset Date Comments Medication Question 06/21/2024 Encounter Details Date Type Department Care Team ([facility] st Contact Info) Description 06/21/2024 Telephone [facility] MEDICINE [address] [place] [address] Sesar Pereyra MD [address] [place] [address] Medication Question Social History Tobacco Use Types [...] to Discontinue the medication. Contact Conrad at [phone] Ext [phone] The Voicemail is private so you are able to Leave a message in there. documented in this encounter Plan of Treatment Upcoming Encounters Date Type Department Care Team (Late st Contact Info) Description 09/11/2024 10:30 AM EDT Office Visit [facility] MED & PEDS [address] [place] [address] Sesar Pereyra MD [address] [place] [address] documented as of this encounter Visit Diagnoses Not on filedocumented in this encounter Additional Health Concerns Assessment Noted Time PHQ-9 Depression Total Score: 16 024 10:59 AM EDT documented as of this encounter Care Teams Extension Course Counselor Relationship Specialty Start Date End Date Sesar Pereyra MD [address] [place] [address] PCP - General Internal Medicine 03/01/21 [facility] 03/22/24 documented as of this encounter
--- OUTSIDE RECORDS SUMMARY | 2024-08-05 15:19 | XMS_ITS | Encounter Summary ---
Author Organization [employer] Address [address] [facility] 7t [place] [address] Care Team Providers Care Warehouse Laborer Name Role Phone Sesar Pereyra MD Primary Care Provider [phone]- [phone] Encounter Details Date Type Department Care Team (Late st Contact Info) Description 07/10/2024 Orders Only [facility] MEDICINE [address] [place] [address] Sesar Pereyra MD [address] [place] [address] Memory disturbance (Primary Dx) Social History Tobacco [...] [facility] [address] [place] [address] Sesar Pereyra MD [address] [place] [address] documented as of this encounter Visit Diagnoses Diagnosis Memory disturbance- Primary Memory loss documented in this encounter Additional Health Concerns Assessment Noted Time PHQ-9 Depression Total Score: 16 024 10:59 AM EDT documented as of this encounter Care Teams Warehouse Laborer Relationship Specialty Start Date End Date Sesar Pereyra MD [address] [place] [address] PCP - General Internal Medicine 03/01/21 [facility] 03/22/24 documented as of this encounter
--- OUTSIDE RECORDS SUMMARY | 2024-08-05 15:19 | XMS_ITS | Encounter Summary ---
Author Organization [employer] [facility] Address [address] [place] [address] Care Team Providers Care Utility Supervisor Boat And Plant Name Role Phone Ghassan Burciaga MD Primary Care Provider Unavail able Pierre Arevalo MD Primary Care Provider Judy vailable Gerson Dawson MD Primary Care Provider Unavail able [facility], Pcp Primary Care Provider Unavailabl e Coleman Mccarthy MD Primary Care Provider Unavaila Ayo Demarco MD Primary Care Provider [phone] Annalee Jones MD Primary Care Provider Un available Pascual Nicholasabela DO Primary Care Pro vider Unavailable Anuj Priest DO Primary Care Provider Judy vailable [facility], Pcp Primary Care Provider Unavailabl e Encounter Details Date Type Department Care Team Description 01/16/2007 Hospital Medical Records [address] [place] [address] Tyler Bloom MD Social History Tobacco Use [...] on filedocumented in this encounter Care Teams Utility Supervisor Boat And Plant Relationship Specialty Start Date End Date Ghassan Burciaga MD PCP - General 07/24/00 05/06/13 Pierre Arevalo MD PCP - General Internal Medicine 05/07/13 4 Gerson Dawson MD PCP - General Internal Medicine 01/30/14 03/20/14 [facility], Pcp PCP - General Internal Medicine 03/21/14 05/06/14 Coleman Mccarthy MD PCP - General Internal Medicine 05/07/14 07/18/16 Ayo Carpio MD [address] [place], [place] [phone] PCP - General Internal Medicine 07/19/16 01/05/17 Annalee Jones MD [address] [place], [place] [phone] PCP - General Internal Medicine 01/06/17 12/02/18 Yolande Nicholas, DO [address] [place] [address] PCP - General Internal Medicine 12/03/18 10/08/20 Anuj Priest, [address] [place] [address] PCP - General Internal Medicine 10/09/20 06/16/21 [facility], Pcp PCP - General Internal Medicine 06/17/21 documented as of this encounter
--- OUTSIDE RECORDS SUMMARY | 2024-08-05 15:19 | XMS_ITS | Encounter Summary ---
Author Organization [employer] [facility] Address [address] [place] [address] Care Team Providers Care Adhesive Bonding Machine Operator Name Role Phone Ghassan Burciaga MD Primary Care Provider Unavail able Pierre Arevalo MD Primary Care Provider Judy vailable Gerson Dawson MD Primary Care Provider Unavail able [facility], Pcp Primary Care Provider Unavailabl e Coleman Mccarthy MD Primary Care Provider Unavaila Ayo Demarco MD Primary Care Provider [phone] Annalee Jones MD Primary Care Provider Un available Pascual Nicholasabela DO Primary Care Pro vider Unavailable Anuj Priest DO Primary Care Provider Judy vailable [facility], Pcp Primary Care Provider Unavailabl e Encounter Details Date Type Department Care Team Description 01/30/2009 Hospital Medical Records [address] [place] [address] Fernie Higginbotham MD Social History Tobacco Use [...] on filedocumented in this encounter Care Teams Adhesive Bonding Machine Operator Relationship Specialty Start Date End Date Ghassan Burciaga MD PCP - General 07/24/00 05/06/13 Pierre Arevalo MD PCP - General Internal Medicine 05/07/13 4 Gerson Dawson MD PCP - General Internal Medicine 01/30/14 03/20/14 [facility], Pcp PCP - General Internal Medicine 03/21/14 05/06/14 Coleman Mccarthy MD PCP - General Internal Medicine 05/07/14 07/18/16 Ayo Carpio MD [address] [place], [place] [phone] PCP - General Internal Medicine 07/19/16 01/05/17 Annalee Jones MD [address] [place], [place] [phone] PCP - General Internal Medicine 01/06/17 12/02/18 Yolande Nicholas DO [address] [place] [address] PCP - General Internal Medicine 12/03/18 10/08/20 Anuj Priest DO [address] [place] [address] PCP - General Internal Medicine 10/09/20 06/16/21 [facility], Pcp PCP - General Internal Medicine 06/17/21 documented as of this encounter
--- OUTSIDE RECORDS SUMMARY | 2024-08-05 15:19 | XMS_ITS | Encounter Summary ---
Author Organization [facility] Address [address] [place] [address] Care Team Providers Care Transformer Builder Name Role Phone Ayo Carpio MD Primary Care Provider [phone] Annalee Jones MD Primary Care Provider Un available Yoalnde Nicholas DO Primary Care Pro vider Unavailable Anuj Priest DO Primary Care Provider Judy [facility], Pcp Primary Care Provider Unavailabl e Encounter Details Date Type Department Care Team Description 10/06/2016 Clay Plant Treater Report Medical Records [address] [place] [address] Anuj [place] Social History Tobacco Use Types [...] on filedocumented in this encounter Care Teams Transformer Builder Relationship Specialty Start Date End Date Ayo Carpio MD [address] [place] [address] PCP - General Internal Medicine 07/19/16 01/05/17 Annalee Jones MD [address] [place] [address] PCP - General Internal Medicine 01/06/17 12/02/18 Yolande Nicholas, [address] [place] [address] PCP - General Internal Medicine 12/03/18 10/08/20 Anuj Priest, [address] [place] [address] PCP - General Internal Medicine 10/09/20 06/16/21 [facility], Pcp [address] [place] [address] PCP - General Internal Medicine 06/17/21 documented as of this encounter
--- OUTSIDE RECORDS SUMMARY | 2024-08-05 15:19 | XMS_ITS | Encounter Summary ---
Author Organization [facility] Address [address] [place] [address] Care Team Providers Care Medication Nurse Name Role Phone Yolande Nicholas DO Primary Care Pro vider Unavailable Anuj Priest DO Primary Care Provider [facility], Pcp Primary Care Provider Unavailabl e Reason for Visit * Reason Onset Date Comments Faxed Order 01/03/2020 Encounter Details Date Type Department Care Team Description 01/03/2020 Telephone Adult [address] [address] Yolande Nicholas DO Faxed Order Social History [...] filedocumented in this encounter Care Teams Medication Nurse Relationship Specialty Start Date End Date Yolande Nicholas DO PCP - General Internal Medicine 12/03/18 10/08/20 Anuj Priest DO PCP - General Internal Medicine 10/09/[address] [place] [address], Pcp PCP - General Internal Medicine 06/17/21 documented as of this encounter
--- OUTSIDE RECORDS SUMMARY | 2024-08-05 15:19 | XMS_ITS | Encounter Summary ---
Author Organization [facility] Address [address] [place] [address] Care Team Providers Care Wheel Tuner Name Role Phone Yolande Nicholas DO Primary Care Pro vider Unavailable Anuj Priest DO Primary Care Provider [facility], Pcp [facility] Encounter Details Date Type Department Care Team Description 01/22/2020 Pt. Non Urgent Medic al Question Adult Medicine [address] [address] Yolande Nicholas DO Social History Tobacco Use [...] they are planning to do [facility]. At this point we have followed all your previous orders regarding who to see and when. Regarding meeting [facility] Needs, we are working with Luda He APRN at [facility] in [place], [place] P: [phone] Therefore, from all the doctor's reports you [...] on filedocumented in this encounter Care Teams Wheel Tuner Relationship Specialty Start Date End Date Yolande Nicholas DO PCP - General Internal Medicine 12/03/18 10/08/20 Anuj Priest DO PCP - General Internal Medicine 10/09/[address] [place] [address], Pcp PCP - General Internal Medicine 06/17/21 documented as of this encounter
--- OUTSIDE RECORDS SUMMARY | 2024-08-05 15:19 | XMS_ITS | Encounter Summary ---
Author Organization [employer] [facility] Address [address] [place] [address] Care Team Providers Care Foundry Tender Name Role Phone Ghassan Burciaga MD Primary Care Provider Unavail able Pierre Arevalo MD Primary Care Provider Judy vailable Gerson Dawson MD Primary Care Provider Unavail able [facility], Pcp Primary Care Provider Unavailabl e Coleman Mccarthy MD Primary Care Provider Unavaila Ayo Demarco MD Primary Care Provider [phone] Annalee Jones MD Primary Care Provider Un available Pascual Nicholasabela DO Primary Care Pro vider Unavailable Anuj Priest DO Primary Care Provider [facility], Pcp Primary Care Provider Unavailabl e Encounter Details Date Type Department Care Team Description 02/02/2009 Hospital Medical Records [address] [place] [id number] Bacilio Ward MD Social History Tobacco Use [...] on filedocumented in this encounter Care Teams Foundry Tender Relationship Specialty Start Date End Date Ghassan Burciaga MD PCP - General 07/24/00 05/06/13 Pierre Arevalo MD PCP - General Internal Medicine 05/07/13 4 Gerson Dawson MD PCP - General Internal Medicine 01/30/14 03/20/14 [facility], Pcp PCP - General Internal Medicine 03/21/14 05/06/14 Coleman Mccarthy MD PCP - General Internal Medicine 05/07/14 07/18/16 Ayo Carpio MD [address] [place], [place] [id number] PCP - General Internal Medicine 07/19/16 01/05/17 Annalee Jones MD [address] [place], [place] [id number] PCP - General Internal Medicine 01/06/17 12/02/18 Yolande Nicholas, DO [address] [place] [address] PCP - General Internal Medicine 12/03/18 10/08/20 Anuj Priest, [address] [place] [address] PCP - General Internal Medicine 10/09/20 06/16/21 [facility], Pcp PCP - General Internal Medicine 06/17/21 documented as of this encounter
--- OUTSIDE RECORDS SUMMARY | 2024-08-05 15:19 | XMS_ITS | Encounter Summary ---
Author Organization [employer] [facility] Address [address] [place] [address] Care Team Providers Care Operation Supervisor Name Role Phone Ayo Carpio MD Primary Care Provider [phone] Annalee Jones MD Primary Care Provider Un available Yolande Nicholas DO Primary Care Pro vider Unavailable Anuj Priest DO Primary Care Provider Judy [facility], Pcp Primary Care Provider Unavailabl e Encounter Details Date Type Department Care Team Description 08/05/2016 Release of Information Medical Records [address] [place] [id number] Abstract, Provider Social History Tobacco Use Types [...] on filedocumented in this encounter Care Teams Operation Supervisor Relationship Specialty Start Date End Date Ayo Carpio MD [address] [place] [id number] PCP - General Internal Medicine 07/19/16 01/05/17 Annalee Jones MD [address] [place] [address] PCP - General Internal Medicine 01/06/17 12/02/18 Yolande Nicholas, [address] [place] [address] PCP - General Internal Medicine 12/03/18 10/08/20 Anuj Priest DO [address] [place] [address] PCP - General Internal Medicine 10/09/20 06/16/21 [facility], Pcp [address] [place] [address] PCP - General Internal Medicine 06/17/21 documented as of this encounter
--- OUTSIDE RECORDS SUMMARY | 2024-08-05 15:19 | XMS_ITS | Encounter Summary ---
Author Organization [employer] Address [address] [facility] [address] [place] [address] Care Team Providers Care Waiter/Waitress Tavern Name Role Phone Sesar Pereyra MD Primary Care Provider [phone] Reason for Visit * Reason Onset Date Comments Med Refill 04/28/2024 Encounter Details Date Type Department Care Team ([facility] st Contact Info) Description 04/28/2024 Refill [facility] [address] [place] [address] Sesar Pereyra MD [address] [place] [address] Social History Tobacco Use Types Packs/Day Years [...] ([facility] st Contact Info) Description 09/11/2024 10:30 AM EDT Office Visit [facility] [address] [place] [address] Sesar Pereyra MD [address] [place] [address] documented as of this encounter Visit Diagnoses Not on filedocumented in this encounter Additional Health Concerns Assessment Noted Time PHQ-9 Depression Total Score: 16 024 10:59 AM EDT documented as of this encounter Care Teams Waiter/Waitress Tavern Relationship Specialty Start Date End Date Sesar Pereyra MD [address] [place] [address] PCP - General Internal Medicine [facility] documented as of this encounter
--- OUTSIDE RECORDS SUMMARY | 2024-08-05 15:20 | XMS_ITS | Encounter Summary ---
Author Organization [employer] Address [address] [facility] [address] [place] [address] Care Team Providers Care Civilian Technician Name Role Phone Sesar Pereyra MD Primary Care Provider [phone] Encounter Details Date Type Department Care Team (Late st Contact Info) Description 04/02/2024 Orders Only [facility] [address] [place] [address] Provider, MD Jazmyn Social History Tobacco Use [...] 09/11/2024 10:30 AM EDT Office Visit [facility] [address] [place] [address] Sesar Pereyra MD [address] [place] [address] documented as of this encounter Procedures Procedure [...] documented as of this encounter Care Teams Civilian Technician Relationship Specialty Start Date End Date Sesar Pereyra MD [address] [place] [address] PCP - General Internal Medicine 03/01/[facility]24 documented as of this encounter
--- OUTSIDE RECORDS SUMMARY | 2024-08-05 15:20 | XMS_ITS | Encounter Summary ---
Author Organization [facility] Address [address] [place] [address] Care Team Providers Care Business Excellence Leader Name Role Phone Annalee Jones MD Primary Care Provider Un available Yolande Nicholas DO Primary Care Pro vider Unavailable Anuj Priest DO Primary Care Provider Judy [facility], Pcp Primary Care Provider Unavailabl e Encounter Details Date Type Department Care Team Description 11/14/2017 Pt. Non Urgent Medic al Question Adult Medicine [address] [address] Annalee Jones MD Social History Tobacco Use [...] of sildenafil 20Mg 10 Qty. Sent to [facility] y [address] [facility] [address] Tele [phone] documented in this encounter Plan of Treatment Not on file documented as of this encounter Visit Diagnoses Not on filedocumented in this encounter Care Teams Business Excellence Leader Relationship Specialty Start Date End Date Annalee Jones MD PCP - General Internal Medicine 01/06/17 9 Yolande Nicholas DO PCP - General Internal Medicine 12/03/18 10/08/20 Anuj Priest DO PCP - General Internal Medicine 10/09/20 2 [facility], Pcp PCP - General Internal Medicine 06/17/21 documented as of this encounter
--- OUTSIDE RECORDS SUMMARY | 2024-08-05 15:20 | XMS_ITS | Clinical Summary ---
Author Organization [employer] Address [address] [facility] [address] [place] [address] Care Team Providers Care Review Coordinator Name Role Phone Sesar Pereyra MD Primary Care Provider [phone] Allergies No known active allergies Medications clonazePAM [...] Assessment & Plan (04/03/2024 3:48 PM EST): Henryey early cellulitis. Keep leg elevated. Low NA [...] 24 Enlarged prostate 01/22/2024 HCAP (healthcare-associated pneumonia) Heme [...] considered Sleep disorder 02/02/2015 Overview (01/22/2024): Saw [facility] and sleep on 01/15/2015: Dr. Johnson Likely DILLAN sleep study ordered. Given that he has RLS, He may have periodic limb movement disorder which can be checked for in the study. Check ferritin. Will await sleep study. Depression with anxiety 04/01/2014 Overview (06/16/2022): Dr. Pradhan at [facility]. Is going to establish care at [...] Sees this doctor once a year at [facility]. Follows up with this facility every 6 months. Pure hypercholesterolemia 07/24/2009 Thoracic aortic aneurysm (TAA) 03/11/2009 Overview (01/22/2024): IMO update Seen by [facility]. 4.[address] 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 07/14/2005 Overview (01/22/2024): Stent on right and fem- fem bypass on left IMO update Depressive disorder 07/14/2005 Alcohol abuse, in remission 06/19/2005 Encounters Date Type Department Care Team Description 08/02/2024 Refill [facility] [address] [place] [address] Sesar Pereyra MD Primary insomnia; Paroxysmal atrial fibrillation ([facility]/HCC) 08/02/2024 Telephone [facility] [address] [place] [address] Sesar Pereyra MD Results 08/01/2024 Orders Only [facility] [address] [place] [address] Sesar Pereyra MD Sleep disorder (Primary Dx); Snoring 07/24/2024 2:15 PM EDT Office Visit [facility] [address] [place] [address] Sesar Pereyra MD Multifocal pneumonia (Primary Dx); Dislocation of left ulnohumeral joint, initial encounter; Essential hypertension; Dietary counseling; Exercise counseling; Class 1 obesity due to excess calories with serious comorbidity and body mass index (BMI) of 32.0 to 32.9 in adult 07/24/2024 Travel 07/22/[address] [address] Sesar Pereyra MD ER Follow-up 07/11/2024 Orders Only GENERIC EXTERNAL DATA DEPARTMENT Provider, Generic External Data 07/10/2024 Orders Only [address] [address] Sesar Pereyra MD Memory disturbance (Primary Dx) 07/10/2024 Telephone [facility] [address] [place] [address] Sesar Pereyra MD 07/09/2024 Telephone [facility] [address] [place] [address] Gracie Jewell RN NTTS OUTREACT CALL 07/04/[address] [address] Sesar Pereyra MD 06/24/2024 Orders Only [address] [address] Sesar Pereyra MD Paroxysmal atrial fibrillation (CMS/HCC) (Primary Dx) 06/21/[address] [address] Sesar Pereyra MD Medication Question 06/19/2024 Orders Only GENERIC EXTERNAL DATA DEPARTMENT Provider, Generic External Data 06/13/2024 1:00 PM EST Office Visit [facility] [address] [place] [address] Sesar Pereyra MD Kidney stone (Primary Dx); Primary hypertension; Low back pain at multiple sites; Tinnitus of right ear; Lower urinary tract symptoms 06/13/2024 Travel 06/12/2024 Orders Only GENERIC EXTERNAL DATA DEPARTMENT Provider, Generic External Data 05/30/[address] [place] [address] Sesar Pereyra MD Lab Orders; Referral 05/30/2024 Telephone [facility] [address] [place] [address] Sesar Pereyra MD 05/28/[address] [address] Sesar Pereyra MD fyi 05/27/2024 Refill [facility] [address] [place] [address] Sesar Pereyra MD 05/23/[address] [address] Sesar Pereyra MD Medication Question 05/15/2024 Telephone [facility] [address] [place] [address] Sesar Pereyra MD 05/09/2024 Telephone [facility] [address] [place] [address] Verona Thompson RN 05/07/2024 9:15 AM EST Office Visit [facility] [address] [place] [address] Natasha Jiang MD Kidney stone (Primary Dx) 05/07/2024 Telephone [facility] [address] [place] [address] Natasha Jiang MD Medication Question 05/07/2024 Orders Only [facility] [address] [place] [address] Natasha Jiang MD 05/07/2024 Travel from Last 3 Months Immunizations Name Administration Dates Next Due DTaP, Unspecified 08/01/2003 Influenza High-dose Quadriva lent Preservative Free 03/15/2023,03/01/2022,03/22/2021 Influenza, High Dose Seasona l, Preservative Free 01/22/2024,02/18/2020,01/12/2018,01/31 Influenza, IIV3, injectable 03/01/2022,1 05/22/2020,02/18/2020,02/17,01/12/2018,01/31/2017,02/18/2016 ,02/02/2015,04/15/2014,03/07/2011,1008/2009,07/09/2006 Influenza, Unspecified 02/18/2020 Influenza, trivalent, adjuvanted 02/18/2016 [...] [facility] [address] [place] [address] Sesar Pereyra MD [address] [place] [address] Health Maintenance Due Date Last Done Comments [...] Name Priority Date/Time Associated Diagnosis Comments XR CHEST 2 VIEWS Routine 08/01/2024 11:0 0 AM EDT Multifocal pneumonia XR SHOULDER 2+ VIEWS LEFT Routine 08/01/2024 10:00 AM EDT CBC WITH AUTO DIFFERENTIAL Routine 07/24/2024 3:29 [...] Relevant to Health Maintenance Results * XR Chest 2 Views (08/01/2024 11:00 AM EDT) Anatomical Region Laterality Modality Chest Radiographic Homa ging 08/01/2024 11:0 0 AM EDT Narrative 08/01/2024 11:28 AM EDT ? [facility] ? [address] ?[place] [address] ?XRay Report ? Signed ? Patient: Alex Nettles ?MR#: [id number] ?? [id number] ? : 1945 ?Acct:[id number] ? Age/Sex: 79 / M ?ADM Date: 08/01/24 ? Loc: HO.HOSX ? Attending Dr: Royce Kothari MD ? Ordering Physician: Sesar Pereyra MD ?? Date of Service: 08/01/24 ?? Procedure(s): XR chest 2V ?? Accession Number(s): [id number] ? cc: Sesar Pereyra MD ? EXAMINATION: ?? XR CHEST ? CLINICAL INFORMATION: ?? To be done in 2 weeks. ? COMPARISON: ?? July 11, 2024. ? TECHNIQUE: ?? 2 views of the chest were obtained. ? FINDINGS: ?? Pulmonary reticular pattern. Mild prominence of the interstitial ?? markings in the perihilar regions. No gross consolidation. ?? No pneumothorax. ?? Haziness in the left lower thorax. ?? Cardiomediastinal silhouette size is normal. ?? Mild to moderate multilevel thoracic spondylosis no fully evaluated due ?? to patient's body habitus. ? XR/XR chest 2V ?? IMPRESSION: ?? Overall improved aeration. Consider mild interstitial lung edema in the ?? correct clinical settings with questionable left-sided pleural effusion ?? the possibility of resulting multifocal pneumonia should be considered.. ? Electronically signed by: ??Kalin Quezada MD ??08/01/2024 11:24 AM ?? EDT RP ? Dictated By: ?Kalin Cox MD ? Signed By: ?<Electronically signed by Kalin Donald MD in OV> ? 08/01/24 1124 ? DD/ 1100 ? TD/TT: 08/01/24 1111 ? Sales Service Representative: ? Procedure Note Donotuseinterpreter, Image - 08/01/2024 [facility] [address] [place] [address] [address] [place] [address] XRay Report Signed Patient: Ronald Nettles#: [id number] : 1945cct:[id number] Age/Sex: 79 / MADM Date: 08/01/24 Loc: [facility] Attending Dr: Royce Kothari MD Ordering Physician: Sesar Pereyra MD Date of Service: 08/01/24 Procedure(s): XR chest 2V Accession Number(s): [id number] cc: Sesar Pereyra MD EXAMINATION: XR CHEST CLINICAL INFORMATION: To be done in 2 weeks. COMPARISON: July 11, 2024. TECHNIQUE: 2 views of the chest were obtained. FINDINGS: Pulmonary reticular pattern. Mild prominence of the interstitial markings in the perihilar regions. No gross consolidation. No pneumothorax. Haziness in the left lower thorax. Cardiomediastinal silhouette size is normal. Mild to moderate multilevel thoracic spondylosis no fully evaluated due to patient's body habitus. XR/XR chest 2V IMPRESSION: Overall improved aeration. Consider mild interstitial lung edema in the correct clinical settings with questionable left-sided pleural effusion the possibility of resulting multifocal pneumonia should be considered.. Electronically signed by: Kalin Quezada MD 08/01/2024 11:24 AM EDT Dictated By: Kalin Cox MD Signed By: <Electronically signed by Kalin Donald MDin OV> 08/01/24 1124 DD/ 1100 TD/TT: 08/01/24 1111 Sales Service Representative: us Sesar Pereyra MD IMG XR PROCEDURES Edited Re sult - Final * XR Shoulder 2+ Views Left (08/01/2024 10:00 AM EDT) Only the most recent of2 resultswithin the time period is included. Anatomical Region Laterality Modality Upper Extremities, Shoulder Left Radi ographic Imaging 08/01/2024 10:0 0 AM EDT Narrative 08/02/2024 8:13 AM EDT ? [facility] ? [address] ?[place] [address] ?XRay Report ? Signed ? Patient: Tho,Alex ?MR#: [id number] ?? [id number] ? : 1945 ?Acct:[id number] ? Age/Sex: 79 / M ?ADM Date: 08/01/24 ? Loc: HO.HOSX ? Attending Dr: Royce Kothari MD ? Ordering Physician: Royce Kothari MD ?? Date of Service: 08/01/24 ?? Procedure(s): XR shoulder LT min 2V ?? Accession Number(s): [id number] ? cc: Sesar Pereyra MD; Royce Kothari MD ? EXAMINATION: ?? XR SHOULDER, LEFT ? CLINICAL INFORMATION: ?? M25.519 - Pain in unspecified shoulder ? COMPARISON: ?? July 15, 2024. ? TECHNIQUE: ?? AP external rotation, Grashey, scapular Y, and axillary views of the ?? left shoulder. ? FINDINGS: ?? Degenerative changes in the greater tuberosity and humeral head ?? junction. ?? Bone marrow inhomogeneity. ?? No acute cortical disruption or malalignment. ?? Subchondral cyst formation and irregularity involving the glenoid of ?? the scapula. ? XR/XR shoulder LT min 2V ?? IMPRESSION: ?? Concerning calcium metabolic disorder versus lymphoproliferative ?? disorder versus malignancy. ?? Degenerative changes without acute fracture or dislocation. ? Electronically signed by: ??Kalin Quezada MD ??08/02/2024 08:11 AM ?? EDT RP ? Dictated By: ?Kalin Cox MD ? Signed By: ?<Electronically signed by Kalin Donald MD in OV> ? 08/02/24 0811 ? DD/ 1000 ? TD/TT: 08/01/24 1005 ? Sales Service Representative: ? Procedure Note Donotuseinterpreter, Image - 08/02/2024 [facility] [address] [place] [address] XRay Report Signed Patient: Ronald Nettles#: [id number] : 7Acct:[id number] Age/Sex: 79 / MADM Date: 08/01/24 Loc: [facility] Attending Dr: Royce Kothari MD Ordering Physician: Royce Kothari MD Date of Service: 08/01/24 Procedure(s): XR shoulder LT min 2V Accession Number(s): [id number] cc: Sesar Pereyra MD; Royce Kothari MD EXAMINATION: XR SHOULDER, LEFT CLINICAL INFORMATION: M25.519 - Pain in unspecified shoulder COMPARISON: July 15, 2024. TECHNIQUE: AP external rotation, Grashey, scapular Y, and axillary views of the left shoulder. FINDINGS: Degenerative changes in the greater tuberosity and humeral head junction. Bone marrow inhomogeneity. No acute cortical disruption or malalignment. Subchondral cyst formation and irregularity involving the glenoid of the scapula. XR/XR shoulder LT min 2V IMPRESSION: Concerning calcium metabolic disorder versus lymphoproliferative disorder versus malignancy. Degenerative changes without acute fracture or dislocation. Electronically signed by: Kalin Quezada MD 08/02/2024 08:11 AM EDT RP Dictated By: Kalin Cox MD Signed By: <Electronically signed by Kalin Donald MDin OV> 08/02/24 0811 DD/ 1000 TD/TT: 08/01/24 1005 Sales Service Representative: us [facility] External Provider IMG XR PROCEDURES Final Result * (ABNORMAL) CBC auto differential (07/24/2024 3:29 PM EDT) Only the most recent of2 resultswithin the time period is included. White Blood Count 9.4 4.8 - 10.8 X10*3/uL [facility] Red Blood Count 4.55(L) 4.60 - 5.80 X10*6/uL [facility] Hemoglobin 13.9(L) 14.0 - 18.0 g/dl [facility] Hematocrit 42.7 42.0 - 52.0 % [facility] Mean Corpuscular Volume 93.8 80.0 - 98.0 fL [facility] Mean Corpuscular Hemoglobin 30.5 27.0 - 33.0 pg [facility] Mean Corpuscular HGB Conc 32.6 31.0 - 36.0 g/dl [facility] Red Cell Distribution Width 16.0 11.0 - 16.0 % [facility] Platelet Count 314 160 - 400 X10*3/uL [facility] Mean Platelet Volume 9.6 9.4 - 12.4 fL [facility] Neutrophils Percent Auto 78.3(H) 45 - 73 % [facility] Imm Gran Pct Auto 0.3 0.0 - 0.4 % [facility] Lymphocytes Percent Auto 10.8(L) 20 - 40 % [facility] Monocytes Percent Auto 8.9 2 - 11 % [facility] Eosinophils Percent Auto 1.2 0 - 4 % [facility] Basophils Percent Auto 0.5 0 - 2 % [facility] NRBC Pct Auto 0.0 0.0 - 0.2 /100WBC [facility] Neutrophils Absolute Auto 7.4 2.0 - 8.3 x10*3/uL [facility] Imm Gran Abs Auto 0.03 0.00 - 0.03 X10*3/uL [facility] Lymphocytes Absolute Auto 1.0(L) 1.2 - 4.9 X10*3/uL [facility] Monocytes Absolute Auto 0.8 0.1 - 1.2 X10*3/uL [facility] Eosinophils Absolute Auto 0.1 0.0 - 0.4 X10*3/uL [facility] Basophils Absolute Auto 0.1 0.0 - 0.2 X10*3/uL [facility] NRBC Abs Auto 0.000 0.0 - 0.012 X10*3/uL [facility] Blood Venous blood specimen / Unknown 07/24/2024 3:29 PM EDT 07/24/2024 6:24 PM EDT us Sesar Pereyra MD LAB BLOOD ORDERABLES Final Result Performing Organization Address [facility] Co de Phone Number [facility] [address] [place] [phone] * (ABNORMAL) Lactic Acid (07/11/2024 11:39 AM EDT) Lactic Acid 2.3(HH) 0.5 - 2.0 mmol/L [facility] Comment:Critical value for L ACTC: Results called to and read backby: DR THAYER Person calling: NEEL Date: 07-11-24 Time:1214 07/11/2024 11:3 9 AM EDT 07/11/2024 11:45 AM EDT us Generic External Data Provider LAB BLOOD ORDERAB LES Final Result Performing Organization Address [facility] Co de Phone Number [facility] [address] [place] [phone] * VENOUS BLOOD GAS (07/11/2024 11:38 AM EDT) VBG pH 7.40 7.32 - 7.43 [facility] Comment:METER #: [id number] additional_comment: CbHernaso VBG PCO2 41 mmHg [facility] Comment:METER #: [id number] additional_comment: CbHernaso VBG PO2 28 mmHg [facility] Comment:METER #: [id number] additional_comment: CbHernaso VBG Base Excess 1.4 mmol/L [facility] Comment:METER #: [id number] additional_comment: CbHernaso VBG HCO3 26 22 - 26 mmol/L [facility] Comment:METER #: [id number] additional_comment: CbHernaso O2 Sat, Garrick 39.0 % [facility] Comment:METER #: [id number] additional_comment: CbHernaso 07/11/2024 11:3 8 AM EDT 07/11/2024 11:41 AM EDT us Generic External Data Provider LAB BLOOD ORDERAB LES Final Result Performing Organization Address [facility] de Phone Number [facility] [address] [place] [address] [phone] * HOLD LT BLUE - POSSIBLE COAG (07/11/2024 11:38 AM EDT) Hold Lt Blue - Possible Coag SEE NOTE [facility] Comment:Specimen will be hel d untested for 4 hours. Call Hematologyif testing is desired. 07/11/2024 11:3 8 AM EDT 07/11/2024 11:47 AM EDT Generic External Data Provider LAB BLOOD ORDERAB LES Final Result Performing Organization Address [facility] de Phone Number [facility] [address] [place] [address] [phone] * XR Chest 1 View (07/11/2024 11:01 AM EDT) Anatomical Region Laterality Modality Chest Radiographic Homa ging 07/11/2024 11:0 1 AM EDT Narrative 07/11/2024 12:14 PM EDT ? [facility] ?[address] ?[place] [address] ?XRay Report ? Signed ? Patient: Tho,Alex ?MR#: [id number] ?? [id number] ? : 1945 ?Acct:[id number] ? Age/Sex: 79 / M ?ADM Date: 03/13/25 ? Loc: HO.ED ? Attending Dr: ? Ordering Physician: Desirae Thayer MD ?? Date of Service: 07/11/24 ?? Procedure(s): XR chest 1V ?? Accession Number(s): [id number] ? cc: Desirae Thayer MD; Sesar Pereyra [...] DD/ 1101 ? TD/TT: 07/11/24 1202 ? Sales Service Representative: ? Procedure Note Donmelotaylornallely, Image - 07/11/2024 [place] [address] XRay Report Signed Patient: Ronald Nettles#: [id number] : 1945cct:[id number] Age/Sex: 79 / MADM Date: 07/11/24 Loc: HO.ED Attending Dr: Ordering Physician: Desirae Thayer MD Date of Service: 07/11/24 Procedure(s): XR chest 1V Accession Number(s): [id number] cc: Desirae Thayer MD; Sesar Pereyra MD [...] 07/11/24 1211 DD/ 1101 TD/TT: 07/11/24 1202 Sales Service Representative: us [facility] External Provider IMG XR PROCEDURES Edited Result - Final * FL Guidance in OR (06/21/2024 5:50 PM EST) Anatomical Region Laterality Modality X-Ray Angiograph y 06/21/2024 5:50 PM EST Narrative 06/24/2024 8:13 AM EST ? [facility] ?[address] ?[place] [address] ? Fluoroscopy Report ? Signed ? Patient: Alex Nettles ?MR#: [id number] ?? [id number] ? : 1945 ?Acct:[id number] ? Age/Sex: 79 / M ?ADM Date: 06/19/24 ? Loc: HO.S3 ?363-2 ? Attending Dr: Tania Bernabe CUSTOM GARMENT DESIGNER ? Ordering Physician: Royce Kothari MD ?? Date of Service: 06/21/24 ?? Procedure(s): FL guidance in OR ?? Accession Number(s): [id number] ? cc: Sesar Pereyra MD; Royce Kothari [...] 0810 ? DD/ 1750 ? TD/TT: 06/21/24 175 ? Sales Service Representative: ? Procedure Note Doncathieter, Image - 06/24/[address] [address] Fluoroscopy Report Signed Patient: Alex NettlesMR#: [id number] : 1945cct:[id number] Age/Sex: 79 / MADM Date: 06/19/24 Loc: HO.S3 363-[address]: Tania Bernabe CUSTOM GARMENT DESIGNER Ordering Physician: Royce Kothari MD Date of Service: 06/21/24 Procedure(s): FL guidance in OR Accession Number(s): [id number] cc: Sesar Pereyra MD; Royce Kothari MD [...] Hendrickson MD in OV> 06/24/24 0810 DD/ 49 TD/TT: 06/21/241749 Sales Service Representative: [facility] External Provider IMG IR PROCEDURES Final Result * CT Humerus (06/19/2024 8:00 PM EST) Anatomical Region Laterality Modality Computed Tomogra phy 06/19/2024 8:00 PM EST Narrative 06/19/2024 8:02 PM EST ? [facility] ?[address] ?[place] [address] ? CT Scan Report ? Signed ? Patient: ThoAlex ?MR#: [id number] ?? [id number] ? : 1945 ?Acct:[id number] ? Age/Sex: 79 / M ?ADM Date: 06/19/24 ? Loc: HO.ED ? Attending Dr: ? Ordering Physician: Angela Moura MD ?? Date of Service: 06/19/24 ?? Procedure(s): CT humerus LT wo IV con ?? Accession Number(s): [id number] ? cc: Sesar Pereyra MD; Angela Moura MD ? Report Number: ?? [id number]: Total DLP = ??192.00 mGy-cm ? CLINICAL [...] of the dorsal margin of the glenoid. Dwsajnil-rc-dnvel ?? 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 ?? 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 ?? Please refer to separate report for x-rays of the partially included elbow. ?? Mild imaged rib deformities in the dconz-ah-ifuk appear old/chronic. ? Impression: ?? 1. Anterior [...] ? DD/ 99 ? TD/TT: 06/19/241999 ? Sales Service Representative: ? Procedure Note Donjr, Image - 06/20/[address] [address] [address] Scan Report Signed Patient: Alex NettlesMR#: [id number] : 1945cct:[id number] Age/Sex: 79 / MADM Date: 06/19/24 Loc: HO.ED Attending Dr: Ordering Physician: Angela Moura MD Date of Service: 06/19/24 Procedure(s): CT humerus LT wo IV con Accession Number(s): [id number] cc: Sesar Pereyra MD; Angela Moura MD Report Number: [id number]: Total DLP = 192.00 mGy-cm CLINICAL HISTORY: [...] of the dorsal margin of the glenoid. Tlotqvvn-tx-zlhbf effusion with lipohemarthrosis of the left glenohumeral joint. 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 Please refer to separate report for x-rays of the partially includedelbow. Mild imaged rib deformities in the uaulf-js-orop appear old/chronic. Impression: 1. Anterior dislocation of [...] in OV> 06/19/242001 DD/ 99 TD/TT: 06/19/241999 Sales Service Representative: [facility] External Provider IMG CT PROCEDURES Final Result * (ABNORMAL) Prothrombin Time-INR (06/19/2024 7:57 PM EST) Prothrombin Time 16.0(H) 10.9 - 12.4 SEC [facility] INTERNATIONAL NORM RATIO 1.4(H) 0.9 - 1.1 [facility] Comment:INTERNATIONAL NORMAL IZED RATIO (INR) [...] ORDERAB LES Final Result Performing Organization Address City/State/[facility] Co de Phone Number [facility] [address] [place] [phone] * XR Elbow 3+ Views Left (06/19/2024 7:16 PM EST) Anatomical Region Laterality Modality Upper Extremities, Elbow Left Radiogr aphic Imaging 06/19/2024 7:16 PM EST Narrative 06/19/2024 7:18 PM EST ? [place] [facility] ?[address] ?[place] [address] ?XRay Report ? Signed ? Patient: Prawlucki,Alex ?MR#: [id number] ?? [id number] ? : 1945 ?Acct:[id number] ? Age/Sex: 79 / M ?ADM Date: 06/19/24 ? Loc: HO.ED ? Attending Dr: ? Ordering Physician: Angela Moura MD ?? Date of Service: 06/19/24 ?? Procedure(s): XR elbow LT min 3V ?? Accession Number(s): [id number] ? cc: Sesar Pereyra MD; Angela Moura [...] ? DD/ 15 ? TD/TT: 06/19/241915 ? Sales Service Representative: ? Procedure Note Alonzo Ng - 06/19/[address] [address] XRay Report Signed Patient: Ronald Nettles#: [id number] : 1945cct:[id number] Age/Sex: 79 / MADM Date: 06/19/24 Loc: HO.ED Attending Dr: Ordering Physician: Angela Moura MD Date of Service: 06/19/24 Procedure(s): XR elbow LT min 3V Accession Number(s): [id number] cc: Sesar Pereyra MD; Angela Moura MD [...] in OV> 06/19/241916 DD/ 15 TD/TT: 06/19/241915 Sales Service Representative: [facility] External Provider IMG XR PROCEDURES Final Result * CT Head w/o Contrast (06/19/2024 7:12 PM EST) Anatomical Region Laterality Modality Head, Neck Computed Tomogra phy 06/19/2024 7:12 PM EST Narrative 06/19/2024 7:14 PM EST ? [facility] ?[address] ?[place] [address] ? CT Scan Report ? Signed ? Patient: Tho,Alex ?MR#: [id number] ?? [id number] ? : 1945 ?Acct:[id number] ? Age/Sex: 79 / M ?ADM Date: 06/19/ ? Loc: HO.ED ? Attending Dr: ? Ordering Physician: Lonny Delgado ?? Date of Service: 06/19/24 ?? Procedure(s): CT head/brain wo IV con ?? Accession Number(s): [id number] ? cc: Sesar Pereyra MD; Lonny Delgado ? Report Number: ?? [id number]: Total DLP = ??652.00 mGy-cm ? CLINICAL [...] MD ? Signed By: ?<Electronically signed by Frakno Rutherford MD in OV> ? 06/19/24 1913 ? DD/ 11 ? TD/TT: 06/19/241911 ? Sales Service Representative: ? Procedure Note Hernandez, Alonzo - 06/19/[address] [place] [address] [address] Scan Report Signed Patient: Alex NettlesMR#: [id number] : 1945cct:[id number] Age/Sex: 79 / MADM Date: 06/19/24 Loc: HO.ED Attending Dr: Ordering Physician: Lonny Delgado Date of Service: 06/19/24 Procedure(s): CT head/brain wo IV con Accession Number(s): [id number] cc: Sesar Pereyra MD; Lonny Delgado Report Number: [id number]: Total DLP = 652.00 mGy-cm CLINICAL HISTORY: [...] in OV> 06/19/241912 DD/ 11 TD/TT: 06/19/241911 Sales Service Representative: [facility] External Provider IMG CT PROCEDURES Final Result * Lipase (06/19/2024 6:17 PM EST) Lipase 17 8 - 78 U/L [facility] 06/19/2024 6:17 PM EST 06/19/2024 6:19 PM EST Generic External Data Provider LAB BLOOD ORDERAB LES Final Result [facility] [address] [place] [phone] * (ABNORMAL) Comprehensive Metabolic Panel (06/19/2024 6:17 PM EST) Sodium 142 135 - 145 mmol/L [facility] Potassium 3.8 3.3 - 5.1 mmol/L [facility] Comment:Slight Hemolysis.Int erpret result with caution. Chloride 109(H) 96 - 108 mmol/L [facility] Carbon Dioxide 23 22 - 29 mmol/L [facility] Anion Gap 14 12 - 20 [facility] Urea Nitrogen (BUN) 13 9 - 16 mg/dL [facility] Creatinine, Serum 1.11 0.5 - 1.4 mg/dL [facility] Creatinine Clr Calc Pharmacy 72.1 [facility] Comment:eGFR (calculated fro m the MDRD study equation) and eCrCl(calculated from the Cockcroft-Gault equation) are based ondifferent parameters and may not yield comparable results.If eCrCl result is absurd, please check patient'sheight/weight. Estimated Glomerular Filt Rate >60 [facility] Comment:Chronic Kidney Disea se: Estimated GFR < 60 mL/min/1.57m1Vnbuzj Kidney Disease: Estimated GFR < 15 mL/min/1.73m2 Glucose 92 60 - 115 mg/dL [facility] Calcium 9.1 8.4 - 10.2 mg/dL [facility] Bilirubin, Total 0.5 0.0 - 1.0 mg/dL [facility] Aspartate Amino Transferase 27 5 - 37 U/L [facility] Comment:Slight Hemolysis.Int erpret result with caution. Alanine Aminotransferase 14 0 - 40 U/L [facility] Total Protein 7.7 6.5 - 8.0 g/dL [facility] Albumin Level 4.1 3.5 - 5.0 g/dL [facility] Alkaline Phosphatase 119(H) 39 - 117 U/L [facility] 06/19/2024 6:17 PM EST 06/19/2024 6:19 PM EST us Generic External Data Provider LAB BLOOD ORDERAB LES Final Result Performing Organization Address [facility] Co de Phone Number [facility] [address] [place] [phone] * Creatinine, Serum (06/12/2024 12:09 PM EST) Creatinine, Serum 1.13 0.5 - 1.4 mg/dL [facility] Estimated Glomerular Filt Rate >60 [facility] Comment:Chronic Kidney Disea se: Estimated GFR < 60 mL/min/1.30k3Pspdvf Kidney Disease: Estimated GFR < 15 mL/min/1.73m2 06/12/2024 12:0 9 PM EST 06/12/2024 12:14 PM EST us Generic External Data Provider LAB BLOOD ORDERAB LES Final Result Performing Organization Address City/[facility] Co de Phone Number [facility] [address] [place] [address] [phone] * (ABNORMAL) BUN (Blood Urea Nitrogen) (06/12/2024 12:09 PM EST) Urea Nitrogen (BUN) 18(H) 9 - 16 mg/dL [facility] 06/12/2024 12:0 9 PM EST 06/12/2024 12:14 PM EST Generic External Data Provider LAB BLOOD ORDERAB LES Final Result Performing Organization Address [facility]/ZIP Co de Phone Number [facility] [address] [place] [phone] * Calcium (06/12/2024 12:09 PM EST) Calcium 9.1 8.4 - 10.2 mg/dL [facility] 06/12/2024 12:0 9 PM EST 06/12/2024 12:14 PM EST Generic External Data Provider LAB BLOOD ORDERAB LES Final Result Performing Organization Address [facility] de Phone Number [facility] [address] [place] [phone] * (ABNORMAL) Electrolyte Panel (06/12/2024 12:09 PM EST) Sodium 142 135 - 145 mmol/L [facility] Potassium 4.0 3.3 - 5.1 mmol/L [facility] Comment:Slight Hemolysis.Int erpret result with caution. Chloride 109(H) 96 - 108 mmol/L [facility] Carbon Dioxide 24 22 - 29 mmol/L [facility] Anion Gap 13 12 - 20 [facility] 06/12/2024 12:0 9 PM EST 06/12/2024 12:14 PM EST Generic External Data Provider LAB BLOOD ORDERAB LES Final Result Performing Organization Address [facility]/ZIP Co de Phone Number [facility] [address] [place] [phone] * XR KUB and Upright 2 Views (05/07/2024 10:21 AM EST) Anatomical Region Laterality Modality Radiographic Homa ging 05/07/2024 10:2 1 AM EST Narrative 05/07/2024 10:48 AM EST ? [facility] ?[address] ?[place] [address] ?XRay Report ? Signed ? Patient: Alex Nettles ?MR#: [id number] ?? [id number] ? : 1945 ?Acct:[id number] ? Age/Sex: 79 / M ?ADM Date: 05/07/24 ? Loc: HO.XRAY ? Attending Dr: Natasha Jiang MD ? Ordering Physician: Natasha Jiang MD ?? Date of Service: 05/07/24 ?? Procedure(s): XR KUB ?? Accession Number(s): [id number] ? cc: Sesar Pereyra MD; Natasha Jiang [...] DD/ 1021 ? TD/TT: 05/07/24 1040 ? Sales Service Representative: ? Procedure Note Hernandez, Image - 05/07/[address] [address] XRay Report Signed Patient: Alex NettlesMR#: [id number] : 7Acct:[id number] Age/Sex: 79 / MADM Date: 05/07/24 Loc: HO.XRAY Attending Dr: Natasha Jiang MD Ordering Physician: Natasha Jiang MD Date of Service: 05/07/24 Procedure(s): XR KUB Accession Number(s): [id number] cc: Sesar Pereyra MD; Natasha Jiang MD [...] 05/07/24 1045 DD/ 1021 TD/TT: 05/07/24 1040 Sales Service Representative: Natasha Jiang MD IMG XR PROCEDURES Edited [...] Media Lot # [id number] Lot# Expiration Date [id number] Urine 05/07/2024 9:33 AM EST Natasha Jiang MD POINT OF CARE TEST ENTER/EDIT OR DERABLES Final Result * Hepatitis C Ab (07/19/2023 11:42 AM EDT) Hepatitis C Antibody Nonreactive Nonreactive [facility] Comment:Antibodies to HCV no t detected; does not exclude early acuteHCV infection. Blood Venous blood specimen / Unknown 07/19/2023 11:42 AM EDT 07/19/2023 2:25 PM EDT Sesar Pereyra MD LAB BLOOD ORDERABLES Final Result [facility] [address] [place] [phone] * (ABNORMAL) LIPID PANEL, STANDARD (03/05/2021 [...] ?? Ulisses MCDANIEL et al. MANDEEP. 2013;310(19): 4156-6085 ?? (http://education.Electronic Payment and Services (EPS).Zoopla/faq/YFN655) Non-HDL Cholesterol 104 <130 mg/dL (calc) [facility] [...] [facility] [address] from Last 3 Months or Most Recently Relevant to Health Maintenance Insurance [employer] MEDICARE REPLACEMENT [facility] FULL Care Teams Review Coordinator Relationship Specialty Start Date End Date Sesar Pereyra MD [address] [place] [phone] PCP - General Internal Medicine 03/01/21 [facility] 03/22/24
--- OUTSIDE RECORDS SUMMARY | 2024-08-05 15:20 | XMS_ITS | Encounter Summary ---
Author Organization [employer] Address [address] [facility] 7t [place] [address] Care Team Providers Care Spectroscopist Name Role Phone Sesar Pereyra MD Primary Care Provider [phone] Reason for Visit * Reason Onset Date Comments Med Refill 04/11/2024 Encounter Details Date Type Department Care Team (Late st Contact Info) Description 04/11/2024 Refill [facility] [address] [place] [address] Natasha Jiang MD [address] [place] [address] Closed nondisplaced fracture of acromial end of [...] Description 09/11/2024 10:30 AM EDT Office Visit [facility] MED & PEDS [address] [place] [address] Sesar Pereyra MD [address] [place] [address] documented as of this encounter Visit Diagnoses Diagnosis Closed nondisplaced fracture of acromial end of right clavicle, initial encounter documented in this encounter Additional Health Concerns Assessment Noted Time PHQ-9 Depression Total Score: 16 024 10:59 AM EDT documented as of this encounter Care Teams Spectroscopist Relationship Specialty Start Date End Date Sesar Pereyra MD [address] [place] [address] PCP - General Internal Medicine [facility] documented as of this encounter
--- OUTSIDE RECORDS SUMMARY | 2024-08-05 15:20 | XMS_ITS | Encounter Summary ---
Author Organization [facility] Address [address] [place] [address] Care Team Providers Care Supervisor Television Chassis Repair Name Role Phone Yolande Nicholas DO Primary Care Pro vider Unavailable Anuj Priest DO Primary Care Provider [facility], Pcp Primary Care Provider Unavailabl e Reason for Visit * Reason Onset Date Comments Faxed Refill 08/13/2020 Melatonin 3 MG T ab Encounter Details Date Type Department Care Team Description 08/13/2020 Telephone Adult [address] [address] Yolande Nicholas DO Faxed Refill (Melatonin 3 [...] last prescribed in 2016. Called pt at [phone], phone continuously busy. * Telephone Encounter - [...] MED LIST AND IS IDENTIFIED BELOW): {MED LIST:97033) Med name: Melatonin 3 MG Tab Dosage: 3 mg tab # of tablets: Local pharmacy with request for 30 -day supply Instructions: Take one tablet by mouth daily at bedtime for sleep Did you check the pharmacy information above?: YES Patients current insurance carrier: Payor: [facility] / Plan: MEDICARE FFS $0 KARI MESA [id number] / Product Type: MEDICARE [id number] documented in this encounter Plan of Treatment Not on file documented as of this encounter Visit Diagnoses Not on filedocumented in this encounter Care Teams Supervisor Television Chassis Repair Relationship Specialty Start Date End Date Yolande Nicholas DO PCP - General Internal Medicine 12/03/18 10/08/20 Anuj Priest DO PCP - General Internal Medicine 10/09/20 2 [facility] [place], Pcp PCP - General Internal Medicine 06/17/21 documented as of this encounter
--- OUTSIDE RECORDS SUMMARY | 2024-08-05 15:20 | XMS_ITS | Encounter Summary ---
Author Organization [facility] Address [address] [place] [address] Care Team Providers Care Forensic Technician Name Role Phone Annalee Jones MD Primary Care Provider Un available Yolande Nicholas DO Primary Care Pro vider Unavailable Anuj Priest DO Primary Care Provider Judy vailable [facility], Pcp Primary Care Provider Unavailabl e Encounter Details Date Type Department Care Team Description 08/24/2017 Release of Information Medical Records [address] [place] [id number] Abstract, Provider Social History Tobacco Use Types [...] on filedocumented in this encounter Care Teams Forensic Technician Relationship Specialty Start Date End Date Annalee Jones MD PCP - General Internal Medicine 01/06/17 9 Yolande Nicholas DO PCP - General Internal Medicine 12/03/18 10/08/20 Anuj Priest DO PCP - General Internal Medicine 10/09/20 2 Jj, Pcp PCP - General Internal Medicine 06/17/21 documented as of this encounter
--- OUTSIDE RECORDS SUMMARY | 2024-08-05 15:20 | XMS_ITS | Encounter Summary ---
Author Organization [facility] Address [address] [place] [address] Care Team Providers Care Neuroscience Director Na Name Role Phone Yolande Nicholas DO Primary Care Pro vider Unavailable Anuj Priest DO Primary Care Provider [facility], Pcp Primary Care Provider Unavailabl e Reason for Visit * Reason Onset Date Comments Mychart Rx Refill 06/27/2020 Encounter Details Date Type Department Care Team Description 06/27/2020 Refill Adult Medicine [address] [address] Yolande Nicholas DO Mychart Rx Refill Social [...] pharmacy whats the hold up Preferred pharmacy: [facility] [address] Medication renewals requested in this message routed separately: atorvastatin (LIPITOR) 80 MG tablet [Yolande Gomez DO] metoprolol (LOPRESSOR) 25 MG tablet [Yolande Gomez DO] documented in this encounter Plan of Treatment Not on file documented as of this encounter Visit Diagnoses Not on filedocumented in this encounter Care Teams Neuroscience Director Na Relationship Specialty Start Date End Date Yolande Nicholas DO PCP - General Internal Medicine 12/03/18 10/08/20 Anuj Priest DO PCP - General Internal Medicine 10/09/[address] [place] [address], Pcp PCP - General Internal Medicine 06/17/21 documented as of this encounter
--- OUTSIDE RECORDS SUMMARY | 2024-08-05 15:20 | XMS_ITS | Encounter Summary ---
[facility] Address [address] [place] [address] Care Team Providers Care Reed Or Wind Instrument Tuner Name Role Phone Annalee Jones MD Primary Care Provider Un available Yolande Nicholas DO Primary Care Pro vider Unavailable Anuj Priest DO Primary Care Provider Judy vailable [facility], Pcp Primary Care Provider Unavailabl e Encounter Details Date Type Department Care Team Description 02/07/2017 Patient Services Clerk Report Medical Records [address] [place] [address] Dhruv Garcia MD Social History Tobacco Use [...] on filedocumented in this encounter Care Teams Reed Or Wind Instrument Tuner Relationship Specialty Start Date End Date Annalee Jones MD PCP - General Internal Medicine 01/06/17 9 Yolande Nicholas DO PCP - General Internal Medicine 12/03/18 10/08/20 Anuj Priest DO PCP - General Internal Medicine 10/09/20 2 Jj, Pcp PCP - General Internal Medicine 06/17/21 documented as of this encounter
--- OUTSIDE RECORDS SUMMARY | 2024-08-05 15:20 | XMS_ITS | Encounter Summary ---
Author Organization [facility] Address [address] [place] [address] Care Team Providers Care Charge Histotechnologist Name Role Phone Yolande Nicholas DO Primary Care Pro vider Unavailable Anuj Priest DO Primary Care Provider [facility], Pcp Primary Care Provider [facility] Encounter Details Date Type Department Care Team Description 06/26/2020 Pt. Non Urgent Medic al Question Adult Medicine [address] [address] Yolande Nicholas DO Social History Tobacco Use [...] Sent: 06/26/2020 8:37 AM EST Subject: referal [facility] 0ccupational therapy Lymphadema diagnosis for a referal [id number] Alex Nettles 1945 documented in this encounter Plan of Treatment Not on file documented as of this encounter Visit Diagnoses Not on filedocumented in this encounter Care Teams Charge Histotechnologist Relationship Specialty Start Date End Date Yolande Nicholas DO PCP - General Internal Medicine 12/03/18 10/08/20 Anuj Priest DO PCP - General Internal Medicine 10/09/20 2 [facility], Pcp PCP - General Internal Medicine 06/17/21 documented as of this encounter
--- OUTSIDE RECORDS SUMMARY | 2024-08-05 15:20 | XMS_ITS | Encounter Summary ---
Author Organization [employer] Address [address] [facility] 7t [place] [address] Care Team Providers Care Mat Puncher Name Role Phone Sesar Pereyra MD Primary Care Provider [phone] Encounter Details Date Type Department Care Team ([facility] st Contact Info) Description 04/01/2024 Orders Only [facility] PEDS [address] [place], [place] [phone] Sesar Pereyra MD [address] [place] [address] Essential hypertension (Primary Dx) Social History Tobacco [...] [facility] [address] [place] [address] Sesar Pereyra MD [address] [place] [address] documented as of this encounter Visit Diagnoses Diagnosis Essential hypertension- Primary Unspecified essential hypertension documented in this encounter Additional Health Concerns Assessment Noted Time PHQ-9 Depression Total Score: 16 024 10:59 AM EDT documented as of this encounter Care Teams Mat Puncher Relationship Specialty Start Date End Date Sesar Pereyra MD [address] [place] [address] PCP - General Internal Medicine 03/01/21 [facility] documented as of this encounter
--- OUTSIDE RECORDS SUMMARY | 2024-08-05 15:20 | XMS_ITS | Encounter Summary ---
Author Organization [facility] Address [address] [place] [address] Care Team Providers Care President And Ceo Name Role Phone Ayo Carpio MD Primary Care Provider [phone] Annalee Jnoes MD Primary Care Provider Un available Yolande Nicholas DO Primary Care Pro vider Unavailable Anuj Priest DO Primary Care Provider Judy [facility], Pcp Primary Care Provider Unavailabl e Encounter Details Date Type Department Care Team Description 12/13/2016 Oil [employer] [place] Report Medical Records [address] [place] [address] Dhruv Garcia MD Social History Tobacco Use [...] on filedocumented in this encounter Care Teams President And Ceo Relationship Specialty Start Date End Date Ayo Carpio MD [address] [place] [address] PCP - General Internal Medicine 07/19/16 01/05/17 Annalee Jones MD [address] [place] [address] PCP - General Internal Medicine 01/06/17 12/02/18 Yolande Nicholas, DO [address] [place] [address] PCP - General Internal Medicine 12/03/18 10/08/20 Anuj Priest, [address] [place] [address] PCP - General Internal Medicine 10/09/20 06/16/21 [facility], [address] [address] PCP - General Internal Medicine 06/17/21 documented as of this encounter
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
--- OUTSIDE RECORDS SUMMARY | 2024-08-05 15:20 | XMS_ITS | Encounter Summary ---
Author Organization [employer] Address [address] [facility] 7t [place] [address] Care Team Providers Care Nurse Administrator Name Role Phone Sesar Pereyra MD Primary Care Provider [phone] Reason for Visit * Reason Onset Date Comments Med Refill 04/02/2024 Encounter Details Date Type Department Care Team ([facility] st Contact Info) Description 04/02/2024 Telephone [facility] [address] [place] [address] Sesar Pereyra MD [address] [place] [address] Med Refill Social History Tobacco Use Types [...] 9:39 AM EST Medication was sent to [facility] on 04/01/24 #30 with 11 refills. * Telephone Encounter - Miri Young - 04/02/2024 9:33 AM EST TC from pt requesting medication refill. Medications needing refill : metoprolol tartrate (Lopressor) 25 MG tablet To be sent to: [facility] documented in this encounter Plan of Treatment Upcoming Encounters Date Type Department Care Team (Late st Contact Info) Description 09/11/2024 10:30 AM EDT Office Visit [facility] [address] [place] [address] Sesar Pereyra MD [address] [place] [address] documented as of this encounter Visit Diagnoses Not on filedocumented in this encounter Additional Health Concerns Assessment Noted Time PHQ-9 Depression Total Score: 16 024 10:59 AM EDT documented as of this encounter Care Teams Nurse Administrator Relationship Specialty Start Date End Date Sesar Pereyra MD [address] [place] [address] PCP - General Internal Medicine 03/01/21 [facility] 03/22/24 documented as of this encounter
--- OUTSIDE RECORDS SUMMARY | 2024-08-05 15:21 | XMS_ITS | Clinical Summary ---
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 Father (Age 49) [place] x 3, ET [place] Maternal Grandfather (Age [...] COLON CANCER SCREENING 03/22/2022 7, 05/17/2006, 04/07/2000 BMI CHECK/ADVISE 05/01/2024 10/16/2020, 05/2020, 06/01/2020, Additional history exists INFLUENZA (Season Ended) 2024 020, 01/12/2018, 01/31/2017, Additional history exists HEPATITIS C SCREENING Completed 05/06/2013 PNEUMOCOCCAL VACCINE Completed 01/12/2018, 02/19/2015, 02/19/2015, Additional history exists Care Teams Used Car Renovator Relationship Specialty Start Date End Date Community, Pcp PCP - General Internal Medicine 06/17/21
--- OUTSIDE RECORDS SUMMARY | 2024-08-05 15:21 | XMS_ITS | Encounter Summary ---
Author Organization [employer] Address [address] [facility] 7t [place] [address] Care Team Providers Care Tightening Machine Operator Name Role Phone Sesar Pereyra MD Primary Care Provider [phone] Encounter Details Date Type Department Care Team ([facility] st Contact Info) Description 11/01/2023 Orders Only [facility] & PEDS [address] [place], [place] [phone] Sesar Pereyra MD [address] [place] [address] Social History Tobacco Use Types Packs/Day Years [...] [facility] [address] [place] [address] Sesar Pereyra MD [address] [place] [address] documented as of this encounter Visit Diagnoses Not on filedocumented in this encounter Additional Health Concerns Assessment Noted Time PHQ-9 Depression Total Score: 16 024 10:59 AM EDT documented as of this encounter Care Teams Tightening Machine Operator Relationship Specialty Start Date End Date Sesar Pereyra MD [address] [place] [address] PCP - General Internal Medicine 03/01/21 [facility] documented as of this encounter
--- OUTSIDE RECORDS SUMMARY | 2024-08-05 15:21 | XMS_ITS | Encounter Summary ---
Author Organization [facility] Address [address] [place] [address] Care Team Providers Care Local Owner Operator Truck Driver Name Role Phone Yolande Nicholas DO Primary Care Pro vider Unavailable Anuj Priest DO Primary Care Provider [facility], Pcp Primary Care Provider Unavailabl e Reason for Visit * Reason Onset Date Comments [facility]NA Call 02/25/2020 Encounter Details Date Type Department Care Team Description 02/25/2020 Telephone Adult Medicine [address] [address] Yolande Nicholas DO VNA Call Social History [...] filedocumented in this encounter Care Teams Local Owner Operator Truck Driver Relationship Specialty Start Date End Date Yolande Nicholas DO PCP - General Internal Medicine 12/03/18 10/08/20 Anuj Priest DO PCP - General Internal Medicine 10/09/[address] [place] [address], Pcp PCP - General Internal Medicine 06/17/21 documented as of this encounter
--- OUTSIDE RECORDS SUMMARY | 2024-08-05 15:21 | XMS_ITS | Encounter Summary ---
Author Organization [employer] Address [address] [facility] 7t [place] [address] Care Team Providers Care Pay Per Click Strategist Name Role Phone Sesar Pereyra MD Primary Care Provider [phone] Reason for Visit * Reason Comments Med Refill Encounter Details Date Type Department Care Team ([facility] Contact Info) Description 10/19/2022 Refill [facility] [address] [place] [address] Sesar Pereyra MD [address] [place] [address] Social History Tobacco Use Types Packs/Day Years [...] Upcoming Encounters Date Type Department Care Team ([facility] Contact Info) Description 09/11/2024 10:30 AM EDT Office Visit [facility] [address] [place] [address] Sesar Pereyra MD [address] [place] [address] documented as of this encounter Visit Diagnoses Not on filedocumented in this encounter Care Teams Pay Per Click Strategist Relationship Specialty Start Date End Date Sesar Pereyra MD [address] [place] [address] PCP - General Internal Medicine 03/01/21 [facility] 03/22/24 documented as of this encounter
--- OUTSIDE RECORDS SUMMARY | 2024-08-05 15:21 | XMS_ITS | Encounter Summary ---
Author Organization [facility] Address [address] [place] [address] Care Team Providers Care Utility Operator Yarn Name Role Phone Yolande Nicholas DO Primary Care Pro vider Unavailable Anuj Priest DO Primary Care Provider [facility], Pcp Primary Care Provider Unavailabl e Reason for Visit * Reason Onset Date Comments Faxed Order 03/07/2020 Encounter Details Date Type Department Care Team Description 03/07/[address] [address] Yolande Nicholas DO Faxed Order Social History [...] TO BE SIGN AND FAX BACK TO [phone]. documented in this encounter Plan of Treatment Not on file documented as of this encounter Visit Diagnoses Not on filedocumented in this encounter Care Teams Utility Operator Yarn Relationship Specialty Start Date End Date Yolande Nicholas DO PCP - General Internal Medicine 12/03/18 10/08/20 Anuj Priest DO PCP - General Internal Medicine 10/09/[address] [place] [address], Pcp PCP - General Internal Medicine 06/17/21 documented as of this encounter
--- OUTSIDE RECORDS SUMMARY | 2024-08-05 15:21 | XMS_ITS | Encounter Summary ---
Author Organization [facility] Address [address] [place] [address] Care Team Providers Care Operating Room Tech Name Role Phone Yolande Nicholas DO Primary Care Pro vider Unavailable Anuj Priest DO Primary Care Provider [facility], Pcp Primary Care Provider Unavailabl e Reason for Visit * Reason Onset Date Comments Faxed Order 03/07/2020 Jerome fernandeza Encounter Details Date Type Department Care Team Description 03/07/2020 Telephone Adult Medicine [address] [address] Yolande Nicholas DO Faxed Order (Elmo vna ) Social History Tobacco Use Types Packs/Day [...] encounter Miscellaneous Notes * Telephone Encounter - Kya Len - 03/07/2020 9:22 AM EST Placed in doctors bin: jerome salamanca Please Review, Sign & Fax when completed. documented in this encounter Plan of Treatment Not on file documented as of this encounter Visit Diagnoses Not on filedocumented in this encounter Care Teams Operating Room Tech Relationship Specialty Start Date End Date Yolande Nicholas DO PCP - General Internal Medicine 12/03/18 10/08/20 Anuj Priest DO PCP - General Internal Medicine 10/09/[address] [place] [address], Pcp PCP - General Internal Medicine 06/17/21 documented as of this encounter
--- OUTSIDE RECORDS SUMMARY | 2024-08-05 15:21 | XMS_ITS | Encounter Summary ---
Author Organization [facility] Address [address] [place] [address] Care Team Providers Care River Pilot Name Role Phone Annalee Jones MD Primary Care Provider Un available Yolande Nicholas DO Primary Care Pro vider Unavailable Anuj Priest DO Primary Care Provider Judy vailable [facility], Pcp Primary Care Provider Unavailabl e Encounter Details Date Type Department Care Team Description 04/24/2018 Hospital Medical Records [address] [place] [address] Thomas Moise MD Social History Tobacco Use [...] on filedocumented in this encounter Care Teams River Pilot Relationship Specialty Start Date End Date Annalee Jones MD PCP - General Internal Medicine 01/06/17 9 Yolande Nicholas DO PCP - General Internal Medicine 12/03/18 10/08/20 Anuj Priest DO PCP - General Internal Medicine 10/09/20 2 Jj, Pcp PCP - General Internal Medicine 06/17/21 documented as of this encounter
--- OUTSIDE RECORDS SUMMARY | 2024-08-05 15:21 | XMS_ITS | Encounter Summary ---
Author Organization [facility] [employer] [facility] Address [address] [place] [address] Care Team Providers Care Manager Of Project Management Name Role Phone Annalee Jones MD Primary Care Provider Un available Yolande Nicholas DO Primary Care Pro vider Unavailable Anuj Priest DO Primary Care Provider Judy vailable Jj, Pcp Primary Care Provider Unavailabl e Encounter Details Date Type Department Care Team Description 08/01/2018 Transfer Records Medical Records [address] [place] [id number] Abstract, Provider Social History Tobacco Use Types [...] in this encounter Care Teams Manager Of Project Management Relationship Specialty Start Date End Date Annalee Jones MD PCP - General Internal Medicine 01/06/17 9 Yolande Nicholas DO PCP - General Internal Medicine 12/03/18 10/08/20 Anuj Priest DO PCP - General Internal Medicine 10/09/20 2 Jj, Pcp PCP - General Internal Medicine 06/17/21 documented as of this encounter
--- OUTSIDE RECORDS SUMMARY | 2024-08-05 15:21 | XMS_ITS | Encounter Summary ---
Author Organization [employer] Address [address] [facility] 7 [place] [address] Care Team Providers Care Cloth Wire Weaver Name Role Phone Sesar Pereyra MD Primary Care Provider [phone]- [phone] Encounter Details Date Type Department Care Team ([facility] Contact Info) Description 10/13/2022 Orders Only [facility] MED [facility] [address] [place] [address] Sesar Pereyra MD [address] [place] [address] Social History Tobacco Use Types Packs/Day Years [...] [facility] [address] [place] [address] Sesar Pereyra MD [address] [place] [address] documented as of this encounter Visit Diagnoses Not on filedocumented in this encounter Care Teams Cloth Wire Weaver Relationship Specialty Start Date End Date Sesar Pereyra MD [address] [place] [address] PCP - General Internal Medicine 03/01/21 [facility] 03/22/24 documented as of this encounter
--- OUTSIDE RECORDS SUMMARY | 2024-08-05 15:21 | XMS_ITS | Encounter Summary ---
Author Organization [facility] Address [address] [place] [address] Care Team Providers Care Oil Lease Buyer Name Role Phone Annalee Jones MD Primary Care Provider Un available Yolande Nicholas DO Primary Care Pro vider Unavailable Anuj Priest DO Primary Care Provider Judy vailable [facility], Pcp Primary Care Provider Unavailabl e Encounter Details Date Type Department Care Team Description 04/27/2018 Hospital Medical Records [address] [place] [id number] [place] [address] Social History Tobacco Use Types Packs/Day Years [...] filedocumented in this encounter Care Teams Oil Lease Buyer Relationship Specialty Start Date End Date Annalee Jones MD PCP - General Internal Medicine 01/06/17 9 Yolande Nicholas DO PCP - General Internal Medicine 12/03/18 10/08/20 Anuj Priest DO PCP - General Internal Medicine 10/09/20 2 Jj, Pcp PCP - General Internal Medicine 06/17/21 documented as of this encounter
--- OUTSIDE RECORDS SUMMARY | 2024-08-05 15:21 | XMS_ITS | Encounter Summary ---
Author Organization [facility] Address [address] [place] [address] Care Team Providers Care Transportation Solutions Manager Name Role Phone Yolande Nicholas DO Primary Care Pro vider Unavailable Anuj Priest DO Primary Care Provider [facility], Pcp Primary Care Provider Unavailabl e Reason for Visit * Reason Onset Date Comments VNA Call 03/03/2020 Ng[facility] vna Encounter Details Date Type Department Care Team Description 03/03/2020 Telephone Adult Medicine [facility] [address] [place] [address] Yolande Nicholas DO VNA Call ([facility]akina vna) Social History Tobacco Use Types Packs/Day [...] on filedocumented in this encounter Care Teams Transportation Solutions Manager Relationship Specialty Start Date End Date Yolande Nicholas DO PCP - General Internal Medicine 12/03/18 10/08/20 Anuj Priest DO PCP - General Internal Medicine 10/09/[address] [place] [address], Pcp PCP - General Internal Medicine 06/17/21 documented as of this encounter
--- OUTSIDE RECORDS SUMMARY | 2024-08-05 15:21 | XMS_ITS | Encounter Summary ---
Author Organization [facility] Address [address] [place] [address] Care Team Providers Care Filament Welder Name Role Phone Yolande Nicholas DO Primary Care Pro vider Unavailable Anuj Priest DO Primary Care Provider [facility], Pcp Primary Care Provider Unavailabl e Reason for Visit * Reason Onset Date Comments Faxed Order 03/08/2020 Encounter Details Date Type Department Care Team Description 03/08/2020 Telephone Adult Medicine [address] [address] Yolande Nicholas DO Faxed Order Social History [...] review, sign, date, and fax back to [phone] * Telephone Encounter - Gerri Parra - 03/08/2020 2:16 PM EST [facility] IS FAXING ORDERS TO BE SIGN AND FAX BACK TO [phone]. documented in this encounter Plan of Treatment Not on file documented as of this encounter Visit Diagnoses Not on filedocumented in this encounter Care Teams Filament Welder Relationship Specialty Start Date End Date Yolande Nicholas DO PCP - General Internal Medicine 12/03/18 10/08/20 Anuj Priest DO PCP - General Internal Medicine 10/09/[address] [place] [address], Pcp PCP - General Internal Medicine 06/17/21 documented as of this encounter
--- OUTSIDE RECORDS SUMMARY | 2024-08-05 15:21 | XMS_ITS | Encounter Summary ---
Author Organization [facility] Address [address] [place] [address] Care Team Providers Care Director Internal Communications Name Role Phone Yolande Nicholas DO Primary Care Pro vider Unavailable Anuj Priest DO Primary Care Provider [facility], Pcp [facility] Encounter Details Date Type Department Care Team Description 04/04/2020 Pt. Non Urgent Medic al Question Adult Medicine [address] [address] Yolande Nicholas DO Social History Tobacco Use [...] 04/04/2020 12:08 PM EST Subject: erictile disfuction [id number] 30ct. documented in this encounter Plan of Treatment Not on file documented as of this encounter Visit Diagnoses Not on filedocumented in this encounter Care Teams Director Internal Communications Relationship Specialty Start Date End Date Yolande Nicholas DO PCP - General Internal Medicine 12/03/18 10/08/20 Anuj Priest DO PCP - General Internal Medicine 10/09/20 2 [facility], Pcp PCP - General Internal Medicine 06/17/21 documented as of this encounter
--- OUTSIDE RECORDS SUMMARY | 2024-08-05 15:21 | XMS_ITS | Encounter Summary ---
Author Organization [employer] Address [address] [facility] 7t [place] [address] Care Team Providers Care Laundry Supervisor Name Role Phone Sesar Pereyra MD Primary Care Provider [phone]- [phone] Reason for Visit * Reason Onset Date Comments fyi 05/28/2024 Encounter Details Date Type Department Care Team ([facility] st Contact Info) Description 05/28/2024 Telephone [facility] MED[facility] [address] [place] [address] Sesar Pereyra MD [address] [place] [address] fy Social History Tobacco Use Types Packs/Day [...] - 05/28/2024 9:37 AM EST Tc from [facility] with [facility] [facility] Care informing pt verbalized to her [...] [facility] [address] [place] [address] Sesar Pereyra MD [address] [place] [address] documented as of this encounter Visit Diagnoses Not on filedocumented in this encounter Additional Health Concerns Assessment Noted Time PHQ-9 Depression Total Score: 16 024 10:59 AM EDT documented as of this encounter Care Teams Laundry Supervisor Relationship Specialty Start Date End Date Sesar Pereyra MD [address] [place] [address] PCP - General Internal Medicine 03/01/21 [facility] 03/22/24 documented as of this encounter
--- OUTSIDE RECORDS SUMMARY | 2024-08-05 15:21 | XMS_ITS | Encounter Summary ---
Author Organization [employer] Address [address] [facility] 7t [place] [address] Care Team Providers Care Fiberglass Insulation Installer Name Role Phone Sesar Pereyra MD Primary Care Provider [phone]- [phone] Reason for Visit * Reason Onset Date Comments Lab Orders 05/30/2024 Referral 05/30/2024 Encounter Details Date Type Department Care Team (Late st Contact Info) Description 05/30/2024 Telephone [facility] [address] [place] [address] Sesar Pereyra MD [address] [place] [address] Lab Orders; Referral Social History Tobacco Use [...] Description 09/11/2024 10:30 AM EDT Office Visit [facility] MED & PEDS [address] [place] [address] Sesar Pereyra MD [address] [place] [address] documented as of this encounter Visit Diagnoses Not on filedocumented in this encounter Additional Health Concerns Assessment Noted Time PHQ-9 Depression Total Score: 16 024 10:59 AM EDT documented as of this encounter Care Teams Fiberglass Insulation Installer Relationship Specialty Start Date End Date Sesar Pereyra MD [address] [place] [address] PCP - General Internal Medicine 03/01/21 [facility] 03/22/24 documented as of this encounter
--- OUTSIDE RECORDS SUMMARY | 2024-08-05 15:21 | XMS_ITS | Clinical Summary ---
Author Organization [facility] Address [address] [place] [address] Care Team Providers Care Clay Preparation Supervisor Name Role Phone Nuha Galvin PA-C Primary Care Provider [phone] Source Comments PLEASE NOTE, if this patient [...] Date Sleep disorder 02/02/2015 Overview (02/02/2015): Saw [facility] and sleep on 01/15/2015: Dr. Johnson Likely DILLAN sleep study ordered. Given that he has RLS, He may have periodic limb movement disorder which can be checked for in the study. Check ferritin. Will await sleep study. 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 Dr. Eatson, urologist, see him once a year. In remission Seen at [facility] urology Depression with anxiety 04/01/2014 Overview (04/01/2014): Dr. Pradhan at [facility]. Is going to establish care at a new facility. 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 Hensley in 2006. Sees this doctor once a year at [facility]. Follows up with this facility every 6 months. 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
--- OUTSIDE RECORDS SUMMARY | 2024-08-05 15:21 | XMS_ITS | Encounter Summary ---
Author Organization [employer] Address [address] [facility] 7t [place] [address] Care Team Providers Care Dock Hand Name Role Phone Sesar Pereyra MD Primary Care Provider [phone] Reason for Visit * Reason Comments Med Refill Encounter Details Date Type Department Care Team ([facility] st Contact Info) Description 08/02/2024 Refill [facility]EDS [address] [place], [place] [phone] Sesar Pereyra MD [address] [place] [address] Primary insomnia; Paroxysmal atrial fibrillation (CMS/HCC) Social History Tobacco Use [...] Upcoming Encounters Date Type Department Care Team ([facility] st Contact Info) Description 09/11/2024 10:30 AM EDT Office Visit [facility] [address] [place] [address] Sesar Pereyra MD [address] [place] [address] documented as of this encounter Visit Diagnoses Diagnosis Primary insomnia Persistent disorder of initiating or maintaining sleep Paroxysmal atrial fibrillation (CMS/HCC) Atrial fibrillation documented in this encounter Additional Health Concerns Assessment Noted Time PHQ-9 Depression Total Score: 6 07/25/19 25 3:22 PM EDT documented as of this encounter Care Teams Dock Hand Relationship Specialty Start Date End Date Sesar Pereyra MD [address] [place] [address] PCP - General Internal Medicine [facility]01[facility]21 [facility] documented as of this encounter
--- OUTSIDE RECORDS SUMMARY | 2024-08-05 15:21 | XMS_ITS | Encounter Summary ---
Author Organization [employer] Address [address] [facility] 7 [place] [address] Care Team Providers Care Vessel Captain Name Role Phone Sesar Pereyra MD Primary Care Provider [phone] Reason for Visit * Reason Onset Date Comments Results 08/02/2024 Encounter Details Date Type Department Care Team ([facility] st Contact Info) Description 08/02/2024 Telephone [facility] MED [facility] PEDS [address] [place], [place] [phone] Sesar Pereyra MD [address] [place] [address] Results Social History Tobacco Use Types Packs/Day [...] Telephone Encounter - Gracie Jewell RN - 08/02/2024 10:59 AM EDT TC to pt. No answer. Voicemail left to call clinic back. documented in this encounter Plan of Treatment Upcoming Encounters Date Type Department Care Team (Late st Contact Info) Description 09/11/2024 10:30 AM EDT Office Visit [facility] MED [facility] PEDS [address] [place] [address] Sesar Pereyra MD [address] [place] [address] documented as of this encounter Visit Diagnoses Not on filedocumented in this encounter Additional Health Concerns Assessment Noted Time PHQ-9 Depression Total Score: 6 07/25/19 25 3:22 PM EDT documented as of this encounter Care Teams Vessel Captain Relationship Specialty Start Date End Date Sesar Pereyra MD [address] [place] [address] PCP - General Internal Medicine 03/01/21 [facility] 03/22/24 documented as of this encounter
--- OUTSIDE RECORDS SUMMARY | 2024-08-05 15:21 | XMS_ITS | Encounter Summary ---
Author [facility] Address [address] [place] [address] Care Team Providers Care Manager Linux Name Role Phone Annalee Jones MD Primary Care Provider Un available Yolande Nicholas DO Primary Care Pro vider Unavailable Anuj Priest DO Primary Care Provider Judy [facility], Pcp Primary Care Provider Unavailabl e Reason for Visit * Reason Onset Date Comments TEST RESULTS 08/24/2018 Encounter Details Date Type Department Care Team Description 08/24/2018 Telephone Adult Medicine [facility] [address] [place] [address] Melva Salgado, [facility] [address] [place] [phone] TEST RESULTS Social History Tobacco Use Types [...] filedocumented in this encounter Care Teams Manager Linux Relationship Specialty Start Date End Date Annalee Jones MD PCP - General Internal Medicine 01/06/17 9 Yolande Nicholas DO PCP - General Internal Medicine 12/03/18 10/08/20 Anuj Priest DO PCP - General Internal Medicine 10/09/20 2 Jj Pcp PCP - General Internal Medicine 06/17/21 documented as of this encounter
--- OUTSIDE RECORDS SUMMARY | 2024-08-05 15:21 | XMS_ITS | Encounter Summary ---
Author Organization [employer] Address [address] [facility] 7t [place] [address] Care Team Providers Care Facilities And Grounds Director Name Role Phone Sesar Pereyra MD Primary Care Provider [phone]- [phone] Reason for Visit * Reason Comments Med Refill Encounter Details Date Type Department Care Team ([facility] st Contact Info) Description 10/30/2023 Refill [facility] MED & PEDS [address] [place], [place] [phone] Sesar Pereyra MD [address] [place] [address] PVD (peripheral vascular disease) (CMS/HCC); Longstanding persistent [...] 10:30 AM EDT Office Visit [facility] MED & PEDS [address] [place] [address] Sesar Pereyra MD [address] [place] [address] documented as of this encounter Visit Diagnoses Diagnosis PVD (peripheral vascular disease) (CMS/HCC) Unspecified peripheral vascular disease Longstanding persistent atrial fibrillation (CMS/HCC) documented in this encounter Additional Health Concerns Assessment Noted Time PHQ-9 Depression Total Score: 16 024 10:59 AM EDT documented as of this encounter Care Teams Facilities And Grounds Director Relationship Specialty Start Date End Date Sesar Pereyra MD [address] [place] [address] PCP - General Internal [facility] documented as of this encounter
--- OUTSIDE RECORDS SUMMARY | 2024-08-05 15:21 | XMS_ITS | Encounter Summary ---
Author Organization [facility] Address [address] [place] [address] Care Team Providers Care Box Maker Wood Name Role Phone Yolande Nicholas DO Primary Care Pro vider Unavailable Anuj Priest DO Primary Care Provider [facility], Pcp Primary Care Provider Unavailabl e Reason for Visit * Reason Onset Date Comments Mychart Rx Refill 02/15/2019 Encounter Details Date Type Department Care Team Description 02/15/2019 Refill Adult Medicine [facility] [address] [place] [address] [facility] [address] [place] [address] Mychart Rx Refill Social History Tobacco Use [...] 20 MG tablet [MELITON Lombardo] Preferred pharmacy: [facility] [address] [place] Comment: Need to have a refill documented in this encounter Plan of Treatment Not on file documented as of this encounter Visit Diagnoses Not on filedocumented in this encounter Care Teams Box Maker Wood Relationship Specialty Start Date End Date Yolande Nicholas DO PCP - General Internal Medicine 12/03/18 10/08/20 Anuj Priest DO PCP - General Internal Medicine 10/09/20 2 [facility], Pcp PCP - General Internal Medicine 06/17/21 documented as of this encounter
--- OUTSIDE RECORDS SUMMARY | 2024-08-05 15:21 | XMS_ITS | Encounter Summary ---
Author Organization [employer] Address [address] [facility] [address], [place] [address] Care Team Providers Care Equipment Scheduler Name Role Phone Sesar Pereyra MD Primary Care Provider [phone]- [phone] Reason for Referral * Consultation (Routine) - Closed Specialty Diagnoses / Procedures Referred By Contac t Referred To Contact Geriatric Medicine Diagnoses Memory disturbance Sesar Pereyra MD [address] [place] [address] Phone: tel: fax: [facility] [address] [place] [address] Phone: tel: fax: Referral ID Status Reason Start Date Expiration Date V isits Requested Visits Authorized [id number] Closed Specialty Services Required 01/11/2024 01/10/2025 1 1 Encounter Details Date Type Department Care Team (Late st Contact Info) Description 01/11/2024 Orders Only [facility] MED & PEDS [address] [place], [place] [phone] Sesar Pereyra MD [address] [place], [place] [phone] Memory disturbance (Primary Dx) Social History Tobacco [...] [facility] MED & PEDS [address] [place] [address] Sesar Pereyra MD [address] [place] [address] Scheduled Referrals Name Type Priority Associated Diagnoses Orde r Schedule Referral to Geriatrics Outpatient Referral Routine Memory disturbance Expected: 01/11/2024 (Approximate), Expires: 01/10/2025 documented as of this encounter Visit Diagnoses Diagnosis Memory disturbance- Primary Memory loss documented in this encounter Additional Health Concerns Assessment Noted Time PHQ-9 Depression Total Score: 16 024 10:59 AM EDT documented as of this encounter Care Teams Equipment Scheduler Relationship Specialty Start Date End Date Sesar Pereyra MD [address] [place] [address] PCP - General Internal Medicine 03/01[facility] documented as of this encounter
--- OUTSIDE RECORDS SUMMARY | 2024-08-05 15:21 | XMS_ITS | Encounter Summary ---
Author Organization [facility] Address [address] [place] [address] Care Team Providers Care Machine Compositor Name Role Phone Yolande Nicholas DO Primary Care Pro vider Unavailable Anuj Priest DO Primary Care Provider [facility], Pcp Primary Care Provider [facility] Encounter Details Date Type Department Care Team Description 03/30/2020 Pt. Non Urgent Medic al Question Adult Medicine [address] [address] Yolande Nicholas DO Social History Tobacco Use [...] Subject: PT for Arun Nettles [place] Walters, [facility] has recommended that Arun receive P.T. LASHA[facility]. However, the [facility] has no openings until May. I would like to have Arun attend the Cardiac Rehab P.T. program at [facility]. His muscles are atrophying and he just shuffles when he walks. I have heard very good reports from friends about the [facility] Cardiac Rehab. program and would like [...] filedocumented in this encounter Care Teams Machine Compositor Relationship Specialty Start Date End Date Yolande Nicholas DO PCP - General Internal Medicine 12/03/18 10/08/20 Anuj Priest DO PCP - General Internal Medicine 10/09/[address] [place] [address], Pcp PCP - General Internal Medicine 06/17/21 documented as of this encounter
--- OUTSIDE RECORDS SUMMARY | 2024-08-05 15:21 | XMS_ITS | Encounter Summary ---
Author Organization [employer] Address 75 [facility] 7t [place] [address] Care Team Providers Care Head Of Biology Name Role Phone Sesar Pereyra MD Primary Care Provider [phone]- [phone] Encounter Details Date Type Department Care Team (Late st Contact Info) Description 05/30/2024 Telephone [facility] MEDICINE [address] [place] [address] Sesar Pereyra MD [address] [place] [address] Social History Tobacco Use Types Packs/Day Years [...] Visit [facility] MED & PEDS [address] [place] [address] Sesar Pereyra MD [address] [place] [address] documented as of this encounter Visit Diagnoses Not on filedocumented in this encounter Additional Health Concerns Assessment Noted Time PHQ-9 Depression Total Score: 16 024 10:59 AM EDT documented as of this encounter Care Teams Head Of Biology Relationship Specialty Start Date End Date Sesar Pereyra MD [address] [place] [address] PCP - General Internal Medicine [facility] documented as of this encounter
--- OUTSIDE RECORDS SUMMARY | 2024-08-05 15:21 | XMS_ITS | Encounter Summary ---
Author Organization [employer] Address 75 [facility] 7t [place] [address] Care Team Providers Care Licensed Physical Therapy Assistant Name Role Phone Sesar Pereyra MD Primary Care Provider [phone]- [phone] Reason for Visit * Reason Onset Date Comments Med Refill 04/18/2024 Encounter Details Date Type Department Care Team ([facility] st Contact Info) Description 04/18/2024 Telephone [facility] [address] [place] [address] Sesar Pereyra MD [address] [place] [address] Med Refill Social History Tobacco Use Types [...] needing refill : To be sent to: [facility] - [place], [place] - [address] [place] [address] STEET documented in this encounter Plan of Treatment Upcoming Encounters Date Type Department Care Team (Late st Contact Info) Description 09/11/2024 10:30 AM EDT Office Visit [facility] MED & PEDS [address] [place] [address] Sesar Pereyra MD [address] [place] [address] documented as of this encounter Visit Diagnoses Not on filedocumented in this encounter Additional Health Concerns Assessment Noted Time PHQ-9 Depression Total Score: 16 024 10:59 AM EDT documented as of this encounter Care Teams Licensed Physical Therapy Assistant Relationship Specialty Start Date End Date Sesar Pereyra MD [address] [place] [address] PCP - General Internal Medicine 03/01/21 [facility] 03/22/24 documented as of this encounter
--- OUTSIDE RECORDS SUMMARY | 2024-08-05 15:21 | XMS_ITS | Encounter Summary ---
Author Organization [facility] Address [address] [place] [address] Care Team Providers Care Shotblast Equipment Operator Name Role Phone Yolande Nicholas DO Primary Care Pro vider Unavailable Anuj Priest DO Primary Care Provider [facility], Pcp Primary Care [facility] Encounter Details Date Type Department Care Team Description 03/13/2020 Pt. Non Urgent Medic al Question Adult Medicine [address] [address] Yolande Nicholas DO Social History Tobacco Use [...] 11:05 AM ESTFrom: Alex Nettles To: Yolande Bangeas DO Sent: 03/13/2020 1:23 PM EST Subject: Yes or No Should Arun be on a Water Pill? Is Arun prescribed any water pills? [facility] is concerned with leg swelling. Told me to call you. Thank you, Chevy documented in this encounter Plan of Treatment Not on file documented as of this encounter Visit Diagnoses Not on filedocumented in this encounter Care Teams Shotblast Equipment Operator Relationship Specialty Start Date End Date Yolande Nicholas DO PCP - General Internal Medicine 12/03/18 10/08/20 Anuj Priest DO PCP - General Internal Medicine 10/09/20 2 [facility], Pcp PCP - General Internal Medicine 06/17/21 documented as of this encounter
--- OUTSIDE RECORDS SUMMARY | 2024-08-05 15:21 | XMS_ITS | Encounter Summary ---
Author Organization [employer] Address 75 [facility] 7t [place] [address] Care Team Providers Care Orchid Superintendent Name Role Phone Sesar Pereyra MD Primary Care Provider [phone] Reason for Visit * Reason Comments Med Refill Encounter Details Date Type Department Care Team ([facility] Contact Info) Description 10/26/2022 Refill [facility] MED & PEDS [address] [place] [address] Sesar Pereyra MD [address] [place] [address] Social History Tobacco Use Types Packs/Day Years [...] AM EDT Office Visit [facility] MED & PEDS [address] [place] [address] Sesar Pereyra MD [address] [place] [address] documented as of this encounter Visit Diagnoses Not on filedocumented in this encounter Care Teams Orchid Superintendent Relationship Specialty Start Date End Date Sesar Pereyra MD [address] [place] [address] PCP - General Internal Medicine 03/01/21 [facility] 03/22/24 documented as of this encounter
--- OUTSIDE RECORDS SUMMARY | 2024-08-05 15:21 | XMS_ITS | Encounter Summary ---
Author Organization [employer] Address 75 [facility] 7 [place] [address] Care Team Providers Care Manufacturing Business Analyst Name Role Phone Sesar Pereyra MD Primary Care Provider [phone] Reason for Referral * Hospital - Outpatient (Routine) - Pending Review Specialty Diagnoses / Procedures Referred By Contac t Referred To Contact Diagnoses Sleep disorder Snoring Procedures Polysomnography Sesar Pereyra MD [address] [place] [address] Phone: tel: fax: [address] Phone: tel: fax: Referral ID Status Reason Start Date Expiration Date V isits Requested Visits Authorized [id number] Pending Review 08/02/2024 08/02/2025 1 1 Encounter Details Date Type Department Care Team (Late st Contact Info) Description 08/01/2024 Orders Only [facility] CHC MED & PEDS [address] [place], [place] [phone] Sesar Pereyra MD [address] [place] [address] Sleep disorder (Primary Dx); Snoring Social History Tobacco Use Types Packs/Day Years [...] 09/11/2024 10:30 AM EDT Office Visit [facility] CHC MED & PEDS [address] [place], [place] [phone] Sesar Pereyra MD [address] [place] [address] Scheduled Orders Name Type Priority Associated Diagnoses Orde r Schedule Polysomnography [facility] Routine Sleep disorder Snoring Expected: 08/02/2024 (Approximate), Expires: 08/02/2025 documented as of this encounter Procedures Procedure Name Priority Date/Time Associated Diagnosis Comments XR SHOULDER 2+ VIEWS LEFT Routine 08/01/2024 10:00 AM EDT documented in this encounter Results * XR Shoulder 2+ Views Left (08/01/2024 10:00 AM EDT) Anatomical Region Laterality Modality Upper Extremities, Shoulder Left Radi ographic Imaging 08/01/2024 10:0 0 AM EDT Narrative 08/02/2024 8:13 AM EDT ? [facility] ? [address] ?[place] [address] ?XRay Report ? Signed ? Patient: Alex Nettles ?MR#: [id number] ?? [id number] ? : 1945 ?Acct:[id number] ? Age/Sex: 79 / M ?ADM Date: 08/01/24 ? Loc: HO.HOSX ? Attending Dr: Royce Kothari MD ? Ordering Physician: Royce Kothari MD ?? Date of Service: 08/01/24 ?? Procedure(s): XR shoulder LT min 2V ?? Accession Number(s): [id number] ? cc: Sesar Pereyra MD; Royce Kothari [...] DD/ 1000 ? TD/TT: 08/01/24 1005 ? Bass Singer: ? Procedure Note Donjr, Alonzo - 08/02/2024 [facility] [address] [place] [address] Drive [address] [place] [address] XRay Report Signed Patient: Alex NettlesMR#: [id number] : 1945cct:[id number] Age/Sex: 79 / MADM Date: 08/01/24 Loc: HO.HOSX Attending Dr: Royce Kothari MD Ordering Physician: Royce Kothari MD Date of Service: 08/01/24 Procedure(s): XR shoulder LT min 2V Accession Number(s): [id number] cc: Sesar Pereyra MD; Royce Kothari MD [...] Kalin Quezada MD 08/02/2024 08:11 AM EDT Dictated By: Kalin Cox MD Signed By: <Electronically signed by Kalin Donald MDin OV> 08/02/24 0811 DD/ 1000 TD/TT: 08/01/24 1005 Bass Singer: [facility] External Provider IMG XR PROCEDURES Final Result documented in this encounter Visit Diagnoses Diagnosis Sleep disorder- Primary Unspecified sleep disturbance Snoring Other dyspnea and respiratory abnormality documented in this encounter Additional Health Concerns Assessment Noted Time PHQ-9 Depression Total Score: 6 07/25/19 25 3:22 PM EDT documented as of this encounter Care Teams Manufacturing Business Analyst Relationship Specialty Start Date End Date Sesar Pereyra MD [address] [place] [address] PCP - General Internal Medicine 03/01/21 [facility] 03/22/24 documented as of this encounter
--- OUTSIDE RECORDS SUMMARY | 2024-08-05 15:21 | XMS_ITS | Encounter Summary ---
Author Organization [facility] Address [address] [place] [address] Care Team Providers Care Mill Roll Operator Name Role Phone Annalee Jones MD Primary Care Provider Un available Yolande Nicholas DO Primary Care Pro vider Unavailable Anuj Priest DO Primary Care Provider [facility], [facility]cp Primary Care Provider Unavailabl e Reason for Visit * Reason Onset Date Comments Shank Maker Feedback 08/27/2018 ortho Encounter Details Date Type Department Care Team Description 08/27/2018 Telephone Adult Medicine [address] [address] [facility] [address] [place] [address] Shank Maker Feedback (ortho) Social History Tobacco Use Types [...] a disc of the MRI [facility] Circulating Process Inspector [facility] documented in this encounter Plan of Treatment Not on file documented as of this encounter Visit Diagnoses Not on filedocumented in this encounter Care Teams Mill Roll Operator Relationship Specialty Start Date End Date Annaele Jones MD PCP - General Internal Medicine 01/06/17 9 Yolande Nicholas DO PCP - General Internal Medicine 12/03/18 10/08/20 Anuj Priest DO PCP - General Internal Medicine 10/09/20 2 Count Includes [facility], Pcp PCP - General Internal Medicine 06/17/21 documented as of this encounter
--- OUTSIDE RECORDS SUMMARY | 2024-08-05 15:21 | XMS_ITS | Encounter Summary ---
Author Organization [employer] Address [address] [facility] 7t [place] [address] Care Team Providers Care Yarn Examiner Name Role Phone Sesar Pereyra MD Primary Care Provider [phone] Reason for Visit * Reason Onset Date Comments Referral 01/02/2024 Encounter Details Date Type Department Care Team ([facility] st Contact Info) Description 01/02/2024 Telephone [facility] MEDICINE [address] [place] [address] Sesar Pereyra MD [address] [place] [address] Referral Social History Tobacco Use Types Packs/Day [...] - 01/02/2024 10:48 AM EDT Tc from [place] the patients EC requesting a referral for a gerontologist and would like to be sent to at [facility] [place] in [place] documented in this encounter Plan of Treatment Upcoming Encounters Date Type Department Care Team (Late st Contact Info) Description 09/11/2024 10:30 AM EDT Office Visit [facility] PED[facility] [address] [place] [address] Sesar Pereyra MD [address] [place] [address] documented as of this encounter Visit Diagnoses Not on filedocumented in this encounter Additional Health Concerns Assessment Noted Time PHQ-9 Depression Total Score: 16 024 10:59 AM EDT documented as of this encounter Care Teams Yarn Examiner Relationship Specialty Start Date End Date Seasr Pereyra MD [address] [place], [place] [address] [address] PCP - General Internal Medicine 03/01/21 [facility] 03/22/24 documented as of this encounter
--- OUTSIDE RECORDS SUMMARY | 2024-08-05 15:21 | XMS_ITS | Encounter Summary ---
Author Organization [facility] Address [address] [place] [address] Care Team Providers Care Pianos And Organs Salesperson Name Role Phone Yolande Nicholas DO Primary Care Pro vider Unavailable Anuj Priest DO Primary Care Provider [facility], Pcp Primary Care Provider Unavailabl e Reason for Visit * Reason Onset Date Comments Faxed Order 03/22/2020 Encounter Details Date Type Department Care Team Description 03/22/2020 Telephone Adult [address] [address] Yolande Nicholas DO Faxed Order Social History [...] review, sign, date, and fax back to [phone] * Telephone Encounter - Gerri Parra - 03/22/2020 12:47 PM EST [facility] IS FAXING ORDERS TO BE SIGN AND FAX BACK TO [phone]. documented in this encounter Plan of Treatment Not on file documented as of this encounter Visit Diagnoses Not on filedocumented in this encounter Care Teams Pianos And Organs Salesperson Relationship Specialty Start Date End Date Yolande Nicholas DO PCP - General Internal Medicine 12/03/18 10/08/20 Anuj Priest DO PCP - General Internal Medicine 10/09/20 2 [facility], Pcp PCP - General Internal Medicine 06/17/21 documented as of this encounter
--- OUTSIDE RECORDS SUMMARY | 2024-08-05 15:21 | XMS_ITS | Encounter Summary ---
Author Organization [employer] Address 75 [facility] 7t [place] [address] Care Team Providers Care Supervisor Lending Activities Name Role Phone Sesar Pereyra MD Primary Care Provider [phone] Reason for Visit * Reason Comments Med Refill Encounter Details Date Type Department Care Team ([facility] st Contact Info) Description 08/29/2023 Refill [facility] MEDICINE [address] [place] [address] Sesar Pereyra MD [address] [place] [address] Social History Tobacco Use Types Packs/Day Years [...] [facility] MED & PEDS [address] [place] [address] Sesar Pereyra MD [address] [place] [address] documented as of this encounter Visit Diagnoses Not on filedocumented in this encounter Additional Health Concerns Assessment Noted Time PHQ-9 Depression Total Score: 16 024 10:59 AM EDT documented as of this encounter Care Teams Supervisor Lending Activities Relationship Specialty Start Date End Date Sesar Pereyra MD [address] [place] [address] PCP - General Internal Medicine 03/01/21 [facility] 03/22/[facility] documented as of this encounter
--- OUTSIDE RECORDS SUMMARY | 2024-08-05 15:22 | XMS_ITS | Encounter Summary ---
Author Organization [employer] [facility] Address [address] [place] [address] Care Team Providers Care Food Mixer Repairer Name Role Phone Ghassan Burciaga MD Primary Care Provider Unavail able Pierre Arevalo MD Primary Care Provider Judy vailable Gerson Dawson MD Primary Care Provider Unavail able [facility], Pcp Primary Care Provider Unavailabl e Coleman Mccarthy MD Primary Care Provider Unavaila Ayo Demarco MD Primary Care Provider [phone] Annalee Jones MD Primary Care Provider Un available Pascual Nicholasabela DO Primary Care Pro vider Unavailable Anuj Priest DO Primary Care Provider Judy vailable On License Of [facility], Pcp Primary Care Provider Unavailabl e Encounter Details Date Type Department Care Team Description 08/06/2010 Release of Information Medical Records [address] [place] [id number] Abstract, Provider Social History Tobacco Use Types [...] filedocumented in this encounter Care Teams Food Mixer Repairer Relationship Specialty Start Date End Date Ghassan Burciaga MD PCP - General 07/24/00 05/06/13 Pierre Arevalo MD PCP - General Internal Medicine 05/07/13 4 Gerson Dawson MD PCP - General Internal Medicine 01/30/14 03/20/14 On License Of [facility], Pcp PCP - General Internal Medicine 03/21/14 05/06/14 Coleman Mccarthy MD PCP - General Internal Medicine 05/07/14 07/18/16 Ayo Carpio MD [address] [place] [address] PCP - General Internal Medicine 07/19/16 01/05/17 Annalee Jones MD [address] [place] [address] PCP - General Internal Medicine 01/06/17 12/02/18 Yolande Nicholas, [address] [place] [address] PCP - General Internal Medicine 12/03/18 10/08/20 Anuj Priest DO [address] [place] [address] PCP - General Internal Medicine 10/09/20 06/16/21 On License Of [facility], Pcp PCP - General Internal Medicine 06/17/21 documented as of this encounter
--- OUTSIDE RECORDS SUMMARY | 2024-08-05 15:22 | XMS_ITS | Encounter Summary ---
Author Organization [facility] Address [address] [place] [address] Care Team Providers Care Pulp Making Plant Operator Name Role Phone Ghassan Burciaga MD Primary Care Provider Unavail able Pierre Arevalo MD Primary Care Provider Judy vailable Gerson Dawson MD Primary Care Provider Unavail able [facility], Pcp Primary Care Provider Unavailabl e Coleman Mccarthy MD Primary Care Provider Unavaila Ayo Demarco MD Primary Care Provider [phone] Annalee Jones MD Primary Care Provider Un available Pascual Nicholasabela DO Primary Care Pro vider Unavailable Anuj Priest DO Primary Care Provider Judy vailable [facility], Pcp Primary Care Provider Unavailabl e Encounter Details Date Type Department Care Team Description 09/17/2010 Softwood Faller Report Medical Records [address] [place] [address] Jayshree Meade Social History Tobacco Use Types [...] filedocumented in this encounter Care Teams Pulp Making Plant Operator Relationship Specialty Start Date End Date Ghassan Burciaga MD PCP - General 07/24/00 05/06/13 Pierre Arevalo MD PCP - General Internal Medicine 05/07/13 4 Gerson Dawson MD PCP - General Internal Medicine 01/30/14 03/20/14 [facility], Pcp PCP - General Internal Medicine 03/21/14 05/06/14 Coleman Mccarthy MD PCP - General Internal Medicine 05/07/14 07/18/16 Ayo Carpio MD [address] [place] [address] PCP - General Internal Medicine 07/19/16 01/05/17 Annalee Jones MD [address] [place] [address] PCP - General Internal Medicine 01/06/17 12/02/18 Yolande Nicholas DO [address] [place] [address] PCP - General Internal Medicine 12/03/18 10/08/20 Anuj Priest DO [address] [place] [address] PCP - General Internal Medicine 10/09/20 06/16/21 [facility], Pcp PCP - General Internal Medicine 06/17/21 documented as of this encounter
--- OUTSIDE RECORDS SUMMARY | 2024-08-05 15:22 | XMS_ITS | Encounter Summary ---
Author Organization [facility] Address [address] [place] [address] Care Team Providers Care Shrimp Packer Name Role Phone Ghassan Burciaga MD Primary Care Provider Unavail able Pierre Arevalo MD Primary Care Provider Judy vailable Gerson Dawson MD Primary Care Provider Unavail able [facility], Pcp Primary Care Provider Unavailabl e Coleman Mccarthy MD Primary Care Provider Unavaila Ayo Demarco MD Primary Care Provider [phone] Annalee Jones MD Primary Care Provider Un available Pascual Nicholasabela DO Primary Care Pro vider Unavailable Anuj Priest DO Primary Care Provider Judy vailable [facility], Pcp Primary Care Provider Unavailabl e Encounter Details Date Type Department Care Team Description 12/18/2009 Release of Information Medical Records [address] [place] [address] Abstract, Provider Social History Tobacco Use Types [...] on filedocumented in this encounter Care Teams Shrimp Packer Relationship Specialty Start Date End Date Ghassan Burciaga MD PCP - General 07/24/00 05/06/13 Pierre Arevalo MD PCP - General Internal Medicine 05/07/13 4 Gerson Dawson MD PCP - General Internal Medicine 01/30/14 03/20/14 [facility], Pcp PCP - General Internal Medicine 03/21/14 05/06/14 Coleman Mccarthy MD PCP - General Internal Medicine 05/07/14 07/18/16 Ayo Carpio MD [address] [place] [address] PCP - General Internal Medicine 07/19/16 01/05/17 Annalee Jones MD [address] [place] [address] PCP - General Internal Medicine 01/06/17 12/02/18 Yolande Nicholas, [address] [place] [address] PCP - General Internal Medicine 12/03/18 10/08/20 Anuj Priest DO [address] [place] [address] PCP - General Internal Medicine 10/09/20 06/16/21 [facility], Pcp PCP - General Internal Medicine 06/17/21 documented as of this encounter
--- OUTSIDE RECORDS SUMMARY | 2024-08-05 15:22 | XMS_ITS | Encounter Summary ---
Author Organization [facility] Address [address] [place] [address] Care Team Providers Care Straw Hat Brim Raiser Operator Name Role Phone Yolande Nicholas DO Primary Care Pro vider Unavailable Anuj Priest DO Primary Care Provider [facility], Pcp Primary Care Provider Unavailabl e Reason for Visit * Reason Onset Date Comments Provider Call Back 04/29/2019 Encounter Details Date Type Department Care Team Description 04/29/2019 Telephone Adult [address] [address] Yolande Nicholas DO Provider Call Back Social [...] EST Im not aware of any in [place] * Telephone Encounter - Minerva Kan R.N. - 04/29/2019 3:[address] Yolande Gomez Are you aware of a detox in [facility] ? * Telephone Encounter - Lonny Lazarus - 04/29/2019 1:15 PM EST Patient relapsed for alcohol abuse 3 days ago and requests to speak to Dr. Yolande Gomez or her team. Patient states that he does want to get better. The patient says Dr. Alvarez mentioned a rehab facility in [place] last time, but he cannot remember the address, phone number, or name of the facility. documented in this encounter Plan of Treatment Not on file documented as of this encounter Visit Diagnoses Not on filedocumented in this encounter Care Teams Straw Hat Brim Raiser Operator Relationship Specialty Start Date End Date Yolande Nicholas DO PCP - General Internal Medicine 12/03/18 10/08/20 Anuj Priest DO PCP - General Internal Medicine 10/09/[address] [place] [address], Pcp PCP - General Internal Medicine 06/17/21 documented as of this encounter
--- OUTSIDE RECORDS SUMMARY | 2024-08-05 15:22 | XMS_ITS | Encounter Summary ---
Author Organization [facility] Address [address] [place] [address] Care Team Providers Care Lithopone Charger Name Role Phone Yolande Nicholas DO Primary Care Pro vider Unavailable Anuj Priest DO Primary Care Provider [facility], Pcp [facility] Encounter Details Date Type Department Care Team Description 05/20/2019 Release of Information Medical Records [address] [place] [id number] Abstract, Provider Social History Tobacco Use Types [...] EST AUTHORIZATION TO OBTAIN RECORDS MAILED TO [facility]. documented in this encounter Plan of Treatment Not on file documented as of this encounter Visit Diagnoses Not on filedocumented in this encounter Care Teams Lithopone Charger Relationship Specialty Start Date End Date Yolande Nicholas DO PCP - General Internal Medicine 12/03/18 10/08/20 Anuj Priest DO PCP - General Internal Medicine 10/09/20 2 2 [facility], Pcp PCP - General Internal Medicine 06/17/21 documented as of this encounter
--- OUTSIDE RECORDS SUMMARY | 2024-08-05 15:22 | XMS_ITS | Encounter Summary ---
Author Organization [employer] [facility] Address [address] [place] [address] Care Team Providers Care Block Hand Name Role Phone Ghassan Burciaga MD Primary Care Provider Unavail able Pierre Arevalo MD Primary Care Provider Judy vailable Gerson Dawson MD Primary Care Provider Unavail able [facility], Pcp Primary Care Provider Unavailabl Coleman Sampson MD Primary Care Provider Unavaila Ayo Demarco MD Primary Care Provider [phone] Annalee Jones MD Primary Care Provider Un available Pascual Nicholasabela DO Primary Care Pro vider Unavailable Anuj Priest DO Primary Care Provider Judy vailable [facility], Pcp Primary Care Provider Unavailabl e Encounter Details Date Type Department Care Team Description 10/12/2009 Controlled Substance Contract with [facility] Medical Records [address] [place] [id number] Abstract, Provider Social History Tobacco Use Types [...] on filedocumented in this encounter Care Teams Block Hand Relationship Specialty Start Date End Date Ghassan Burciaga MD PCP - General 07/24/00 05/06/13 Pierre Arevalo MD PCP - General Internal Medicine 05/07/13 4 Gerson Dawson MD PCP - General Internal Medicine 01/30/14 03/20/14 [facility], Pcp PCP - General Internal Medicine 03/21/14 05/06/14 Coleman Mccarthy MD PCP - General Internal Medicine 05/07/14 07/18/16 Ayo Carpio MD [address] [place] [address] PCP - General Internal Medicine 07/19/16 01/05/17 Annalee Jones MD [address] [place] [address] PCP - General Internal Medicine 01/06/17 12/02/18 Yolande Nicholas DO [address] [place] [address] PCP - General Internal Medicine 12/03/18 10/08/20 Anuj Priest DO [address] [place] [address] PCP - General Internal Medicine 10/09/20 06/16/21 [facility], Pcp PCP - General Internal Medicine 06/17/21 documented as of this encounter
--- OUTSIDE RECORDS SUMMARY | 2024-08-05 15:22 | XMS_ITS | Encounter Summary ---
Author Organization [facility] Address [address] [place] [address] Care Team Providers Care Shortage Worker Name Role Phone Yolande Nicholas DO Primary Care Pro vider Unavailable Anuj Priest DO Primary Care Provider [facility], Pcp Primary Care Provider Unavailabl e Reason for Visit * Reason Onset Date Comments Faxed Refill 05/30/2019 Encounter Details Date Type Department Care Team Description 05/30/2019 Refill Adult Medicine [address] [address] Yolande Nicholas DO Faxed Refill Social History [...] the RX # listed on the fax? [id number] Patients current insurance carrier is: Payor: [employer] - MEDICARE / Plan: MEDICARE FFS $[facility] [id number] / Product Type: MEDICARE [id number] documented in this encounter Plan of Treatment Not on file documented as of this encounter Visit Diagnoses Not on filedocumented in this encounter Care Teams Shortage Worker Relationship Specialty Start Date End Date Yolande Nicholas DO PCP - General Internal Medicine 12/03/18 10/08/20 Anuj Priest DO PCP - General Internal Medicine 10/09/[address] [place] [address], Pcp PCP - General Internal Medicine 06/17/21 documented as of this encounter
--- OUTSIDE RECORDS SUMMARY | 2024-08-05 15:22 | XMS_ITS | Encounter Summary ---
Author Organization [employer] Address [address] [facility] [address] [place] [address] Care Team Providers Care Clinical Psychologist Licensed Name Role Phone Sesar Pereyra MD Primary Care Provider [phone] Reason for Visit * Reason Comments Med Refill Encounter Details Date Type Department Care Team ([facility] Contact Info) Description 06/10/2022 Refill [facility] [address] [place] [address] Sesar Pereyra MD [address] [place] [address] Primary insomnia Social History Tobacco Use Types [...] Upcoming Encounters Date Type Department Care Team ([facility] Contact Info) Description 09/11/2024 10:30 AM EDT Office Visit [facility] [address] [place] [address] Sesar Pereyra MD [address] [place] [address] documented as of this encounter Visit Diagnoses Diagnosis Primary insomnia Persistent disorder of initiating or maintaining sleep documented in this encounter Care Teams Clinical Psychologist Licensed Relationship Specialty Start Date End Date Sesar Pereyra MD [address] [place] [address] PCP - General Internal Medicine 03/01/21 [facility] 03/22/24 documented as of this encounter
--- OUTSIDE RECORDS SUMMARY | 2024-08-05 15:22 | XMS_ITS | Encounter Summary ---
Author Organization [facility] Address [address] [place] [address] Care Team Providers Care Flow Nurse Name Role Phone Yolande Nicholas DO Primary Care Pro vider Unavailable Anuj Priest DO Primary Care Provider Judy álvarez [facility], Pcp Primary Care Provider Unavailabl e Encounter Details Date Type Department Care Team Description 03/06/2019 Refractory Manager Report Medical Records [address] [place] [address] Adilia Navarro PA-C Social History Tobacco Use [...] on filedocumented in this encounter Care Teams Flow Nurse Relationship Specialty Start Date End Date Yolande Nicholas DO PCP - General Internal Medicine 12/03/18 10/08/20 Anuj Priest DO PCP - General Internal Medicine 10/09/20 2 [facility], Pcp PCP - General Internal Medicine 06/17/21 documented as of this encounter
== END ==
LOC: HO.CARD 12:56
PROVIDERS: Visit Provider Nurse Practitioner Family
DX: I15.0 Renovascular hypertension (principal); I71.20 Thoracic aortic aneurysm, without rupture, unspecified
CPT/HCPCS: 93306

== ENCOUNTER → 2024-08-05 12:59 | Outpatient (BNV) | payer MEDICARE, MEDICAID, SELFPAY | PROVIDERS: Visit Provider Internal Medicine | DX: I42.2 Other hypertrophic cardiomyopathy (principal); I35.8 Other nonrheumatic aortic valve disorders; I34.81 Nonrheumatic mitral (valve) annulus calcification | CPT/HCPCS: 93306 ==

== ENCOUNTER 2024-08-20 15:00 | Outpatient (RCR) | payer MEDICARE, OTHER, SELFPAY ==
--- NOTE | 2024-08-14 14:05 | MHC.PT.EP ---
[facility] [place] Office [place] Office [place] Office [address] Chata Bang [address] [phone] F: [phone] F: [phone] F: [phone] F: [phone] Physical Therapy Plan of Care Date of Evaluation: 08/14/24 Date of Surgery: 06/21/24 Diagnosis: s/p dislocation of L GHjt. Assessment: Patient is a 79 year old R handed male who presents with s/s consistent with s/p dislocation of left glenohumeral joint. He does not work and is fairly sedentary. Patient past medical history includes LE swelling, significant cardiac history. Current impairments include pain, posture, ROM, strength, activity tolerance and functional mobility. Functional limitations include decreased ability to reach, lift, carry, push, pull, drive and sleep. Patient is motivated with good rehab potential. Skilled PT will address impairments and functional limitations in order to achieve goals. 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 Manual therapy to restore motion and function. Therapeutic exercise to improve strength and flexibility. Neuromuscular re-education for posture and balance. Therapeutic activities to return to functional activities of daily living. Electronically signed by: Natanael White, PT Please sign and return to therapist. Thank you for your referral.
--- NOTE | 2024-11-19 10:20 | MHC.PT.DC ---
[facility] [place] [facility] [place] [facility] [place] [facility] [address] Chata Bang [address] [phone] F: [phone] F: [phone] F: [phone] F: [phone] Physical Therapy Discharge Report Diagnosis: s/p dislocation of L GHjt. Date of Surgery: 06/21/24 Date of Evaluation: 08/14/24 Date of Discharge: 08/21/24 Treatments to Date: 2 Cancellations to Date: No Shows to Date: Discharge Status: Patient Elected to Stop Discharge Summary: 08/20; Pt sore after exs, but no c/o pain. Passive flexion 110.abd 100. Patient is a 79 year old R handed male who presents with s/s consistent with s/p dislocation of left glenohumeral joint. He does not work and is fairly sedentary. Patient past medical history includes LE swelling, significant cardiac history. Current impairments include pain, posture, ROM, strength, activity tolerance and functional mobility. Functional limitations include decreased ability to reach, lift, carry, push, pull, drive and sleep. Patient is motivated with good rehab potential. Skilled PT will address impairments and functional limitations in order to achieve goals. Electronically signed by: Natanael White, PT Please sign and return to therapist. Thank you for your referral.
== END 2024-11-19 10:21 | disposition home or self-care (01) ==
LOC: HO.PTCHIC 15:00
PROVIDERS: PCP Internal Medicine; Visit Provider Physician Assistant
DX: S43.005D Unspecified dislocation of left shoulder joint, subsequent encounter (principal); S42.302D Unspecified fracture of shaft of humerus, left arm, subsequent encounter for fracture with routine healing; S42.102D Fracture of unspecified part of scapula, left shoulder, subsequent encounter for fracture with routine healing; X58.XXXD Exposure to other specified factors, subsequent encounter
CPT/HCPCS: 97110; 97140; 97163

== ENCOUNTER 2024-08-20 20:18 | Inpatient (IN) | payer MEDICARE, MEDICAID, SELFPAY ==
--- NOTE | 2024-08-20 | ECG_ITS ---
Test Reason : sob Blood Pressure : */* mmHG Vent. Rate : 57 BPM Atrial Rate : 57 BPM P-R Int : 198 ms QRS Dur : 86 ms QT Int : 472 ms P-R-T Axes : 78 2 42 degrees QTcB Int : 459 ms Sinus bradycardia Septal infarct (cited on or before 19-Mar-2024) Abnormal ECG When compared with ECG of 11-Jul-2024 11:14, No significant change was found Referred By: Generic ED Physician Electronically Signed By: ALYSHA BEE
--- NOTE | ~2024-08-20 | XR_ITS ---
CLINICAL HISTORY: sob 1 view chest x-ray Comparison: Chest x-ray from 08/01/2024 Findings: Small left pleural effusion with left basilar atelectasis and/or pneumonitis. Additional mild bilateral pulmonary opacities nonspecific and may reflect pneumonitis or pulmonary edema given interstitial predominance superimposed on emphysematous changes. Imaged mediastinum is unchanged. Degenerative changes include imaged shoulders. IMPRESSION: 1. Small left pleural effusion with left basilar atelectasis/consolidation. 2. Mild additional interstitial opacities as can be seen with recurrent edema and pneumonitis. This document has been electronically signed by: Franko Rutherford MD on 08/20/2024 21:15:06
[2024-08-20 20:20] VITALS: BP 150/69; PULSE 62; RESP 18; O2SAT 97; BMI 32.4
[2024-08-20 20:23] VITALS: BP 175/66; PULSE 61; O2SAT 98
[2024-08-20 20:31] VITALS: TEMP 36.8
[2024-08-20 20:56] LABS: MANUAL DIFF FLAG NO
[2024-08-20 21:04] LABS: Basophils Percent Auto 0.5 % (0-2); Eosinophils Absolute Auto 0.2 X10*3/uL (0.0-0.4); Eosinophils Percent Auto 2.5 % (0-4); Hematocrit 39.1 % (42.0-52.0); Imm Gran Abs Auto 0.02 X10*3/uL (0.00-0.03); Imm Gran Pct Auto 0.3 % (0.0-0.4); Lymphocytes Percent Auto 13.2 % (20-40); Mean Corpuscular HGB Conc 33.2 g/dl (31.0-36.0); Mean Corpuscular Volume 93.3 fL (80.0-98.0); Mean Platelet Volume 9.8 fL (9.4-12.4); Monocytes Absolute Auto 0.8 X10*3/uL (0.1-1.2); Monocytes Percent Auto 10.1 % (2-11); Neutrophils Absolute Auto 5.8 x10*3/uL (2.0-8.3); Neutrophils Percent Auto 73.4 % (45-73); Platelet Count 268 X10*3/uL (160-400); Red Blood Count 4.19 X10*6/uL (4.60-5.80); Red Cell Distribution Width 16.8 % (11.0-16.0); White Blood Count 7.9 X10*3/uL (4.8-10.8)
[2024-08-20 21:11] LABS: INTERNATIONAL NORM RATIO 1.3 (0.9-1.1); Prothrombin Time 14.9 SEC (10.9-12.4)
[2024-08-20 21:16] LABS: Alanine Aminotransferase 18 U/L (0-40); Albumin Level 3.7 g/dL (3.5-5.0); Alkaline Phosphatase 104 U/L (39-117); Anion Gap 13 (12-20); Aspartate Amino Transferase 28 U/L (5-37); Bilirubin Total 0.4 mg/dL (0.0-1.0); Blood Urea Nitrogen 25 mg/dL (9-16); Calcium 8.7 mg/dL (8.4-10.2); Carbon Dioxide 27 mmol/L (22-29); Chloride 109 mmol/L (96-108); Creatinine Clr Calc Pharmacy 47.3; Estimated Glomerular Filt Rate 39; Glucose Random 95 mg/dL (60-115); Potassium 4.4 mmol/L (3.3-5.1); Sodium 145 mmol/L (135-145); Total Protein 6.3 g/dL (6.5-8.0)
[2024-08-20 21:21] LABS: B Type Natriuretic Peptide 317 pg/mL (<100)
[2024-08-20 21:23] LABS: Troponin-I High Sensitivity 13.9 ng/L (<3.5-35.0)
--- OUTSIDE RECORDS SUMMARY | 2024-08-20 21:33 | XMS_ITS | Encounter Summary ---
Author Organization [employer] Address [address] [facility] [address] [place] [address] Care Team Providers Care Engine Manager Name Role Phone Sesar Pereyra MD Primary Care Provider [phone] Encounter Details Date Type Department Care Team ([facility] Contact Info) Description 10/13/2022 Orders Only [facility] [address] [place] [address] Sesar Pereyra MD [address] [place] [address] Social History Tobacco Use Types Packs/Day Years [...] [facility] [address] [place] [address] Sesar Pereyra MD [address] [place] [address] documented as of this encounter Visit Diagnoses Not on filedocumented in this encounter Care Teams Engine Manager Relationship Specialty Start Date End Date Sesar Pereyra MD [address] [place] [address] PCP - General Internal Medicine 03/01/21 [facility] 03/22/24 documented as of this encounter
--- OUTSIDE RECORDS SUMMARY | 2024-08-20 21:33 | XMS_ITS | Clinical Summary ---
Author Organization [employer] Address [address] [facility] [address] [place] [address] Care Team Providers Care Guide Visitor Name Role Phone Sesar Pereyra MD Primary Care Provider Allergies No known active allergies Medications gabapentin (Neurontin) 100 MG capsule 03/11/20 23 Active QUEtiapine (SEROquel) 25 MG tablet 05/24/19 24 Active sertraline (Zoloft) 50 MG tablet 05/18/19 24 Active docusate sodium (Colace) 100 MG [...] day. 28 tablet 11 05/23/19 25 Active hydrALAZINE (Apresoline) 25 MG tablet [...] needed for severe pain. 06/24/19 25 Active melatonin 3 MG tabletIndicatio ns:Primary insomnia TAKE 1 TABLET BY MOUTH AT BEDTIME 30 tablet 08/06/19 25 Active Multaq 400 MG tabletIndicatio ns:Paroxysmal atrial fibrillation (CMS/HCC) TAKE 1 TABLET BY MOUTH two (2) times a day (WITH BREAKFAST AND EVENING A MEAL) 60 tablet 08/06/19 25 Active amphetamine-dex troamphetamine (Adderall) 7.5 MG tabletIndicatio ns:Memory disturbance Take 1 tablet (7.5 mg) by mouth Once per day. 28 tablet 08/13/19 25 Active clonazePAM (KlonoPIN) 0.5 MG tablet Take 1 tablet (0.5 mg) by mouth 2 times daily. 60 tablet 08/13/19 25 Active clonazePAM (KlonoPIN) 0.5 MG tablet 05/24/19 23 025 Discontinued(Re order (will not trigger notification to Pharmacy)) tamsulosin (Flomax) 0.4 MG 24 hr capsule 05/18/19 24 025 Discontinued(Du plicate order (will not trigger notification to Pharmacy)) melatonin 3 MG tabletIndicatio ns:Primary insomnia Take 1 tablet (3 mg) by mouth at bedtime. 28 tablet 5 11/22/19 24 025 Discontinued dronedarone (Multaq) 400 MG tablet Take 1 tablet by mouth with breakfast and with evening meal. 025 Discontinued(Du plicate order (will not trigger notification to Pharmacy)) dronedarone (Multaq) 400 MG tabletIndicatio ns:Paroxysmal atrial fibrillation (CMS/HCC) Take 1 tablet (400 mg) by mouth with breakfast and with evening meal. 60 tablet 06/24/19 25 025 Discontinued amphetamine-dex troamphetamine (Adderall) 7.5 MG tabletIndicatio ns:Memory disturbance Take 1 tablet (7.5 mg) by mouth Once per day. 28 tablet 07/11/19 25 025 Discontinued(Re order (will not trigger [...] pain of over 3 months duration 03/03/20 Renal cell carcinoma 03/03/2021 Hypertension 03/03/2021 Cardiomyopathy [...] considered Sleep disorder 02/02/2015 Overview (01/22/2024): Saw [facility] and sleep on 01/15/2015: Dr. Johnson Likely DILLAN sleep study ordered. Given that he has RLS, He may have periodic limb movement disorder which can be checked for in the study. Check ferritin. Will await sleep study. Depression with anxiety 04/01/2014 Overview (06/16/2022): Dr. Pradhan at [facility]. Is going to establish care at [...] Sees this doctor once a year at [facility]. Follows up with this facility every 6 months. Pure hypercholesterolemia 07/24/2009 Thoracic aortic aneurysm (TAA) 03/11/2009 Overview (01/22/2024): IMO update Seen by [facility]. 4.[address] 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 07/14/2005 Overview (01/22/2024): Stent on right and fem- fem bypass on left IMO update Depressive disorder 07/14/2005 Alcohol abuse, in remission 06/19/2005 Encounters Date Type Department Care Team Description 08/12/2024 Refill [facility] [address] [place] [address] Loyda Jacobson, CLAUDIA 08/12/[address] [address] Sesar Pereyra MD Memory disturbance 08/08/2024 Telephone [facility] [address] [place] [address] Loyda Jacobson, RN Med Refill 08/08/[address] [address] Sesar Peeryra MD Med Refill 08/07/2024 Telephone [facility] [address] [place] [phone] Sesar Pereyra MD PSG ORDER 08/02/2024 Refill [facility] [address] [place] [address] Sesar Pereyra MD Primary insomnia; Paroxysmal atrial fibrillation (CMS/HCC) 08/02/2024 Telephone [facility] [address] [place] [address] Sesar Pereyra MD Results 08/01/2024 Orders Only [facility] [address] [place] [address] Sesar Pereyra MD Sleep disorder (Primary Dx); Snoring 07/24/2024 2:15 PM EDT Office Visit [facility] [address] [place] [address] Sesar Pereyra MD Multifocal pneumonia (Primary Dx); Dislocation of left ulnohumeral joint, initial encounter; Essential hypertension; Dietary counseling; Exercise counseling; Class 1 obesity due to excess calories with serious comorbidity and body mass index (BMI) of 32.0 to 32.9 in adult 07/24/2024 Travel 07/22/[address] [address] Sesar Pereyra MD ER Follow-up 07/11/2024 Orders Only GENERIC EXTERNAL DATA DEPARTMENT Provider, Generic External Data 07/10/2024 Orders Only [facility] [address] [place] [phone] Sesar Pereyra MD Memory disturbance (Primary Dx) 07/10/2024 Telephone [facility] [address] [place] [address] Sesar Pereyra MD 07/09/2024 Telephone [facility] [address] [place] [address] Gracie Jewell, CLAUDIA NTTS OUTREACT CALL 07/04/2024 Refill [facility] [address] [place] [address] Sesar Pereyra MD 06/24/2024 Orders Only [facility] [address] [place] [phone] Sesar Pereyra MD Paroxysmal atrial fibrillation (CMS/HCC) (Primary Dx) 06/21/[address] [address] Sesar Pereyra MD Medication Question 06/19/2024 Orders Only GENERIC EXTERNAL DATA DEPARTMENT Provider, Generic External Data 06/13/2024 1:00 PM EST Office Visit [facility] [address] [place] [address] Sesar Pereyra MD Kidney stone (Primary Dx); Primary hypertension; Low back pain at multiple sites; Tinnitus of right ear; Lower urinary tract symptoms 06/13/2024 Travel 06/12/2024 Orders Only GENERIC EXTERNAL DATA DEPARTMENT Provider, Generic External Data 05/30/2024 Telephone [facility] [address] [place] [address] Sesar Pereyra MD Lab Orders; Referral 05/30/[address] [address] Sesar Pereyra MD 05/28/[address] [address] Sesar Pereyra MD fyi 05/27/2024 Refill [facility] [address] [place] [address] Sesar Pereyra MD 05/23/2024 Telephone [facility] [address] [place], [place] [phone] Sesar Pereyra MD Medication Question from Last 3 Months Immunizations Name Administration [...] 10:30 AM EDT Office Visit [facility] [address] [place] [address] Sesar Pereyra MD [address] [place] [address] Health Maintenance Due Date Last Done Comments [...] PANEL Routine 06/12/2024 12: 09 PM EST HEPATITIS C ANTIBODY Routine 07/19/2023 [...] [address] ?[place] [address] ?XRay Report ? Signed ? Patient: JocelynemarlonbryAlex ?MR#: [id number] ?? [id number] ? : 1945 ?Acct:[id number] ? Age/Sex: 79 / M ?ADM Date: 08/01/24 ? Loc: HO.HOSX ? Attending Dr: Royce Kothari MD ? Ordering Physician: Sesar Pereyra MD ?? Date of Service: 08/01/24 ?? Procedure(s): XR chest 2V ?? Accession Number(s): [id number] ? cc: Sesar Pereyra MD ? EXAMINATION: [...] by Kalin Donald MD in OV> ? 08/01/244 ? DD/ 1100 ? TD/TT: 08/01/24 1111 ? Veterinary Technology Instructor: ? Procedure Note Alonzo Ng - 08/01/2024 [facility] [address] [place] [address] [address] [place] [address] XRay Report Signed Patient: Alex NettlesMR#: [id number] : 1945cct:[id number] Age/Sex: 79 / MADM Date: 08/01/24 Loc: YANINESSAKentrell Attending Dr: Royce Kothari MD Ordering Physician: Sesar Pereyra MD Date of Service: 08/01/24 Procedure(s): XR chest 2V Accession Number(s): [id number] cc: Sesar Pereyra MD EXAMINATION: XR CHEST [...] 08/01/24 1124 DD/ 1100 TD/TT: 08/01/24 1111 Veterinary Technology Instructor: us Sesar Pereyra MD IMG XR PROCEDURES [...] Surgeons ? [address] ?[place], [place] [address] ?XRay Report ? Signed ? Patient: Alex Nettles ?MR#: [id number] ?? [id number] ? : 1945 ?Acct:[id number] ? Age/Sex: 79 / M ?ADM Date: 08/01/24 ? Loc: HO.HOSX ? Attending Dr: Royce Kothari MD ? Ordering Physician: Royce Kothari MD ?? Date of Service: 08/01/24 ?? Procedure(s): XR shoulder LT min 2V ?? Accession Number(s): [id number] ? cc: Sesar Pereyra MD; Royce Kothari [...] by Kalin Donald MD in OV> ? 08/02/[address] ? DD/ 1000 ? TD/TT: 08/01/24 1005 ? Veterinary Technology Instructor: ? Procedure Note Donjr, Image - 08/02/2024 [facility] [address] [place] [address] Drive [address] [place] [address] XRay Report Signed Patient: Alex NettlesMR#: [id number] : 1945cct:[id number] Age/Sex: 79 / MADM Date: 08/01/24 Loc: JACLYN Attending Dr: Royce Kothari MD Ordering Physician: Royce Kothari MD Date of Service: 08/01/24 Procedure(s): XR shoulder LT min 2V Accession Number(s): [id number] cc: Sesar Pereyra MD; Royce Kothari MD [...] 08/02/24 0811 DD/ 1000 TD/TT: 08/01/24 1005 Veterinary Technology Instructor: [facility] External Provider IMG XR PROCEDURES Final Result * (ABNORMAL) CBC auto differential (07/24/2024 3:29 PM EDT) Only the most recent of2 resultswithin the time period is included. White Blood Count 9.4 4.8 - 10.8 X10*3/uL [facility] Red Blood Count 4.55(L) 4.60 - 5.80 X10*6/uL [facility] Hemoglobin 13.9(L) 14.0 - 18.0 g/dl [facility] Hematocrit 42.7 42.0 - 52.0 % [facility] Mean Corpuscular Volume 93.8 80.0 - 98.0 fL [facility] Mean Corpuscular Hemoglobin 30.5 27.0 - 33.0 pg [facility] Mean Corpuscular HGB Conc 32.6 31.0 - 36.0 g/dl [facility] Red Cell Distribution Width 16.0 11.0 - 16.0 % [facility] Platelet Count 314 160 - 400 X10*3/uL [facility] Mean Platelet Volume 9.6 9.4 - 12.4 fL [facility] Neutrophils Percent Auto 78.3(H) 45 - 73 % [facility] Imm Gran Pct Auto 0.3 0.0 - 0.4 % [facility] Lymphocytes Percent Auto 10.8(L) 20 - 40 % [facility] Monocytes Percent Auto 8.9 2 - 11 % [facility] Eosinophils Percent Auto 1.2 0 - 4 % [facility] Basophils Percent Auto 0.5 0 - 2 % [facility] NRBC Pct Auto 0.0 0.0 - 0.2 /100WBC [facility] Neutrophils Absolute Auto 7.4 2.0 - 8.3 x10*3/uL [facility] Imm Gran Abs Auto 0.03 0.00 - 0.03 X10*3/uL [facility] Lymphocytes Absolute Auto 1.0(L) 1.2 - 4.9 X10*3/uL [facility] Monocytes Absolute Auto 0.8 0.1 - 1.2 X10*3/uL [facility] Eosinophils Absolute Auto 0.1 0.0 - 0.4 X10*3/uL [facility] Basophils Absolute Auto 0.1 0.0 - 0.2 X10*3/uL [facility] NRBC Abs Auto 0.000 0.0 - 0.012 X10*3/uL [facility] Blood Venous blood specimen / Unknown 07/24/2024 3:29 PM EDT 07/24/2024 6:24 PM EDT us Sesar Pereyra MD LAB BLOOD ORDERABLES Final Result Performing Organization Address [facility] Co de Phone Number [facility] [address] [place] [phone] * (ABNORMAL) Lactic Acid (07/11/2024 11:39 AM EDT) [facility] Lactic Acid 2.3(HH) 0.5 - 2.0 mmol/L [facility] Comment:Critical value for L ACTC: Results called to and read backby: DR THAYER Person calling: NEEL Date: 07-11-24 Time:1214 07/11/2024 11:3 9 AM EDT 07/11/2024 11:45 AM EDT us Generic External Data Provider LAB BLOOD ORDERAB LES Final Result Performing Organization Address [facility]/ZIP Co de Phone Number [facility] [address] [place] [phone] * VENOUS BLOOD GAS (07/11/2024 11:38 AM EDT) VBG pH 7.40 7.32 - 7.43 [facility] Comment:METER #: [id number] additional_comment: CbHernaso VBG PCO2 41 mmHg [facility] Comment:METER #: [id number] additional_comment: CbHernaso VBG PO2 28 mmHg [facility] Comment:METER #: [id number] additional_comment: Cbnaso VBG Base Excess 1.4 mmol/L [facility] Comment:METER #: [id number] additional_comment: Cbnaso VBG HCO3 26 22 - 26 mmol/L [facility] Comment:METER #: [id number] additional_comment: CbAleco O2 Sat, Garrick 39.0 % [facility] Comment:METER #: [id number] additional_comment: CbAleco 07/11/2024 11:3 8 AM EDT 07/11/2024 11:41 AM EDT us Generic External Data Provider LAB BLOOD ORDERAB LES Final Result Performing Organization Address [facility] de Phone Number [facility] [address] [place] [address] [phone] * HOLD LT BLUE - POSSIBLE COAG (07/11/2024 11:38 AM EDT) Hold Lt Blue - Possible Coag SEE NOTE [facility] Comment:Specimen will be hel d untested for 4 hours. Call Hematologyif testing is desired. 07/11/2024 11:3 8 AM EDT 07/11/2024 11:47 AM EDT us Generic External Data Provider LAB BLOOD ORDERAB LES Final Result Performing Organization Address [facility] Co de Phone Number [facility] [address] [place] [phone] * XR Chest 1 View (07/11/2024 11:01 AM EDT) Anatomical Region Laterality Modality Chest Radiographic Homa ging 07/11/2024 11:0 1 AM EDT Narrative 07/11/2024 12:14 PM EDT ? [facility] [place] [facility] ?[address] ?[place] [address] ?XRay Report ? Signed ? Patient: Prawismaelki,Alex ?MR#: [id number] ?? [id number] ? : 1945 ?Acct:[id number] ? Age/Sex: 79 / M ?ADM Date: 07/11/24 ? Loc: HO.ED ? Attending Dr: ? Ordering Physician: Desirae Thayer MD ?? Date of Service: 07/11/24 ?? Procedure(s): XR chest 1V ?? Accession Number(s): [id number] ? cc: Desirae Thayer MD; Sesar Pereyra [...] DD/ 1101 ? TD/TT: 07/11/24 1202 ? Veterinary Technology Instructor: ? Procedure Note Alonzo Ng - 07/11/[address] [address] XRay Report Signed Patient: Ronald Nettles#: [id number] : 1945cct:[id number] Age/Sex: 79 / MADM Date: 07/11/24 Loc: HO.ED Attending Dr: Ordering Physician: Desirae Thayer MD Date of Service: 07/11/24 Procedure(s): XR chest 1V Accession Number(s): [id number] cc: Desirae Thayer MD; Sesar Pereyra MD [...] Jaquan Guillen MD 07/11/2024 12:11 PM EDT RP Dictated By: Jaquan Guillen MD Signed By: <Electronically signed by Jaquan Guillen MD in OV> 07/11/24 1211 DD/ 1101 TD/TT: 07/11/24 1202 Veterinary Technology Instructor: [facility] External Provider IMG XR PROCEDURES Edited Result - Final * FL Guidance in OR (06/21/2024 5:50 PM EST) Anatomical Region Laterality Modality X-Ray Angiograph y 06/21/2024 5:50 PM EST Narrative 06/24/2024 8:13 AM EST ? [facility] ?[address] ?[place] [address] ? Fluoroscopy Report ? Signed ? Patient: Tho,Alxe ?MR#: [id number] ?? [id number] ? : 1945 ?Acct:[id number] ? Age/Sex: 79 / M ?ADM Date: 06/19/24 ? Loc: HO.S3 ?363-2 ? Attending Dr: Tania Bernabe SET UP MECHANIC STAMPING MACHINES ? Ordering Physician: Royce Kothari MD ?? Date of Service: 06/21/24 ?? Procedure(s): FL guidance in OR ?? Accession Number(s): [id number] ? cc: Sesar Pereyra MD; Royce Kothari [...] DD/ 1750 ? TD/TT: 06/21/24 1750 ? Veterinary Technology Instructor: ? Procedure Note Hernandez, Image - 06/24/2024 [place] [address] Fluoroscopy Report Signed Patient: Ronald Nettles#: [id number] : 1945cct:[id number] Age/Sex: 79 / MADM Date: 06/19/24 Loc: HO.S3 363-[address]: Tania Bernabe NP Ordering Physician: Royce Kothari MD Date of Service: 06/21/24 Procedure(s): FL guidance in OR Accession Number(s): [id number] cc: Sesar Pereyra MD; Royce Kothari MD [...] by: Anuj Hendrickson MD 06/24/2024 08:10 AM [facility] Dictated By: Anuj Hendrickson MD Signed By: <Electronically signed by Anuj Hendrickson MD in OV> 06/24/24 0810 DD/ 49 TD/TT: 06/21/241749 Veterinary Technology Instructor: [facility] External Provider IMG IR PROCEDURES Final Result * CT Humerus (06/19/2024 8:00 PM EST) Anatomical Region Laterality Modality Computed Tomogra phy 06/19/2024 8:00 PM EST Narrative 06/19/2024 8:02 PM EST ? [facility] ?[address] ?[place] [address] ? CT Scan Report ? Signed ? Patient: Alex Nettles ?MR#: [id number] ?? [id number] ? : 1945 ?Acct:[id number] ? Age/Sex: 79 / M ?ADM Date: 06/19/24 ? Loc: HO.ED ? Attending Dr: ? Ordering Physician: Angela Moura MD ?? Date of Service: 06/19/24 ?? Procedure(s): CT humerus LT wo IV con ?? Accession Number(s): [id number] ? cc: Sesar Pereyra MD; Angela Moura MD ? Report Number: ?? [id number]: Total DLP = ??192.00 mGy-cm ? CLINICAL [...] of the dorsal margin of the glenoid. Cwxiynnd-dq-cnsut ?? 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 ?? 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 ?? Please refer to separate report for x-rays of the partially included elbow. ?? Mild imaged rib deformities in the gnqqr-tf-tktg appear old/chronic. ? Impression: ?? 1. Anterior [...] ? DD/ 99 ? TD/TT: 06/19/241999 ? Veterinary Technology Instructor: ? Procedure Note Anneter, Image - 06/20/[address] [place] [address] [address] Scan Report Signed Patient: Ronald Nettles#: [id number] : 7Acct:[id number] Age/Sex: 79 / MADM Date: 06/19/24 Loc: HO.ED Attending Dr: Ordering Physician: Angela Moura MD Date of Service: 06/19/24 Procedure(s): CT humerus LT wo IV con Accession Number(s): [id number] cc: Sesar Pereyra MD; Angela Moura MD Report Number: [id number]: Total DLP = 192.00 mGy-cm CLINICAL HISTORY: [...] of the dorsal margin of the glenoid. Lnoqiqld-er-ysuei effusion with lipohemarthrosis of the left glenohumeral joint. 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 Please refer to separate report for x-rays of the partially includedelbow. Mild imaged rib deformities in the cpsrk-ro-fmib appear old/chronic. Impression: 1. Anterior dislocation of [...] in OV> 06/19/242001 DD/ 99 TD/TT: 06/19/241999 Veterinary Technology Instructor: [facility] External Provider IMG CT PROCEDURES Final Result * (ABNORMAL) Prothrombin Time-INR (06/19/2024 7:57 PM EST) Prothrombin Time 16.0(H) 10.9 - 12.4 SEC [facility] INTERNATIONAL NORM RATIO 1.4(H) 0.9 - 1.1 [facility] Comment:INTERNATIONAL NORMAL IZED RATIO [...] Provider LAB BLOOD ORDERAB LES Final Result [facility] [address] [place] [phone] * XR Elbow 3+ Views Left (06/19/2024 7:16 PM EST) Anatomical Region Laterality Modality Upper Extremities, Elbow Left Radiogr aphic Imaging 06/19/2024 7:16 PM EST Narrative 06/19/2024 7:18 PM EST ? [facility] ?[address] ?[place] [address] ?XRay Report ? Signed ? Patient: Tho,Alex ?MR#: [id number] ?? [id number] ? : 1945 ?Acct:[id number] ? Age/Sex: 79 / M ?ADM Date: 06/19/24 ? Loc: HO.ED ? Attending Dr: ? Ordering Physician: Angela Moura MD ?? Date of Service: 06/19/24 ?? Procedure(s): XR elbow LT min 3V ?? Accession Number(s): [id number] ? cc: Sesar Pereyra MD; Angela Moura [...] ? DD/ 15 ? TD/TT: 06/19/241915 ? Veterinary Technology Instructor: ? Procedure Note Alonzo Ng - 06/19/2024 [facility] [address] [place] [address] XRay Report Signed Patient: JocelyneelvismariiaAlexMR#: [id number] : 7Acct:[id number] Age/Sex: 79 / MADM Date: 06/19/24 Loc: HO.ED Attending Dr: Ordering Physician: Angela Moura MD Date of Service: 06/19/24 Procedure(s): XR elbow LT min 3V Accession Number(s): [id number] cc: Sesar Pereyra MD; Angela Moura MD [...] in OV> 06/19/241916 DD/ 15 TD/TT: 06/19/241915 Veterinary Technology Instructor: [facility] External Provider IMG XR PROCEDURES Final Result * CT Head w/o Contrast (06/19/2024 7:12 PM EST) Anatomical Region Laterality Modality Head, Neck Computed Tomogra phy 06/19/2024 7:12 PM EST Narrative 06/19/2024 7:14 PM EST ? [facility] ?[address] ?[place] [address] ? CT Scan Report ? Signed ? Patient: Pramarlonki,Alex ?MR#: [id number] ?? [id number] ? : 1945 ?Acct:[id number] ? Age/Sex: 79 / M ?ADM Date: 02/19/25 ? Loc: HO.ED ? Attending Dr: ? Ordering Physician: Lonny Delgado ?? Date of Service: 06/19/24 ?? Procedure(s): CT head/brain wo IV con ?? Accession Number(s): [id number] ? cc: Sesar Pereyra MD; Lonny Delgado ? Report Number: ?? [id number]: Total DLP = ??652.00 mGy-cm ? CLINICAL [...] ? DD/ 11 ? TD/TT: 06/19/241911 ? Veterinary Technology Instructor: ? Procedure Note Timmelotaylornallely, Image - 06/19/[address] [place] [address] [address] Scan Report Signed Patient: Ronald Nettles#: [id number] : 1945cct:[id number] Age/Sex: 79 / MADM Date: 06/19/24 Loc: HO.ED Attending Dr: Ordering Physician: Lonny Delgado Date of Service: 06/19/24 Procedure(s): CT head/brain wo IV con Accession Number(s): [id number] cc: Sesar Pereyra MD; Lonny Delgado Report Number: [id number]: Total DLP = 652.00 mGy-cm CLINICAL HISTORY: [...] in OV> 06/19/241912 DD/ 11 TD/TT: 06/19/241911 Veterinary Technology Instructor: [facility] External Provider IMG CT PROCEDURES Final Result * Lipase (06/19/2024 6:17 PM EST) Lipase 17 8 - 78 U/L [facility] 06/19/2024 6:17 PM EST 06/19/2024 6:19 PM EST Generic External Data Provider LAB BLOOD ORDERAB LES Final Result [facility] [address] [place] [phone] * (ABNORMAL) Comprehensive Metabolic Panel (06/19/2024 6:17 PM EST) Sodium 142 135 - 145 mmol/L [facility] Potassium 3.8 3.3 - 5.1 mmol/L [facility] Comment:Slight Hemolysis.Int erpret result with caution. Chloride 109(H) 96 - 108 mmol/L [facility] Carbon Dioxide 23 22 - 29 mmol/L [facility] Anion Gap 14 12 - 20 [facility] Urea Nitrogen (BUN) 13 9 - 16 mg/dL [facility] Creatinine, Serum 1.11 0.5 - 1.4 mg/dL [facility] Creatinine Clr Calc Pharmacy 72.1 [facility] Comment:eGFR (calculated fro m the MDRD study equation) and eCrCl(calculated from the Cockcroft-Gault equation) are based ondifferent parameters and may not yield comparable results.If eCrCl result is absurd, please check patient'sheight/weight. Estimated Glomerular Filt Rate >60 [facility] Comment:Chronic Kidney Disea se: Estimated GFR < 60 mL/min/1.57q6Blrhdc Kidney Disease: Estimated GFR < 15 mL/min/1.73m2 Glucose 92 60 - 115 mg/dL [facility] Calcium 9.1 8.4 - 10.2 mg/dL [facility] Bilirubin, Total 0.5 0.0 - 1.0 mg/dL [facility] Aspartate Amino Transferase 27 5 - 37 U/L [facility] Comment:Slight Hemolysis.Int erpret result with caution. Alanine Aminotransferase 14 0 - 40 U/L [facility] Total Protein 7.7 6.5 - 8.0 g/dL [facility] Albumin Level 4.1 3.5 - 5.0 g/dL [facility] Alkaline Phosphatase 119(H) 39 - 117 U/L [facility] 06/19/2024 6:17 PM EST 06/19/2024 6:19 PM EST us Generic External Data Provider LAB BLOOD ORDERAB LES Final Result [facility] [address] [place] [phone] [phone] * Creatinine, Serum (06/12/2024 12:09 PM EST) Creatinine, Serum 1.13 0.5 - 1.4 mg/dL [facility] Estimated Glomerular Filt Rate >60 [facility] Comment:Chronic Kidney Disea se: Estimated GFR < 60 mL/min/1.73b1Lppclr Kidney Disease: Estimated GFR < 15 mL/min/1.73m2 06/12/2024 12:0 9 PM EST 06/12/2024 12:14 PM EST Generic External Data Provider LAB BLOOD ORDERAB LES Final Result Performing Organization Address [facility] de Phone Number [facility] [address] [place] [phone] * (ABNORMAL) BUN (Blood Urea Nitrogen) (06/12/2024 12:09 PM EST) Urea Nitrogen (BUN) 18(H) 9 - 16 mg/dL [facility] 06/12/2024 12:0 9 PM EST 06/12/2024 12:14 PM EST Generic External Data Provider LAB BLOOD ORDERAB LES Final Result Performing Organization Address [facility] Phone Number [facility] [address] [place] [phone] * Calcium (06/12/2024 12:09 PM EST) Pathologist [facility] [place] Calcium 9.1 8.4 - 10.2 mg/dL [facility] 06/12/2024 12:0 9 PM EST 06/12/2024 12:14 PM EST Generic External Data Provider LAB BLOOD ORDERAB LES Final Result Performing Organization Address [facility] de Phone Number [facility] [address] [place] [phone] * (ABNORMAL) Electrolyte Panel (06/12/2024 12:09 PM EST) Sodium 142 135 - 145 mmol/L [facility] Potassium 4.0 3.3 - 5.1 mmol/L [facility] Comment:Slight Hemolysis.Int erpret result with caution. Chloride 109(H) 96 - 108 mmol/L [facility] Carbon Dioxide 24 22 - 29 mmol/L [facility] Anion Gap 13 12 - 20 [facility] 06/12/2024 12:0 9 PM EST 06/12/2024 12:14 PM EST us Generic External Data Provider LAB BLOOD ORDERAB LES Final Result Performing Organization Address [facility]/ZIP Co de Phone Number [facility] [address] [place] [phone] * Hepatitis C Ab (07/19/2023 11:42 AM EDT) Pathologist [facility] [place] Hepatitis C Antibody Nonreactive Nonreactive [facility] Comment:Antibodies to HCV no t detected; does not exclude early acuteHCV infection. Blood Venous blood specimen / Unknown 07/19/2023 11:42 AM EDT 07/19/2023 2:25 PM EDT us Sesar Pereyra MD LAB BLOOD ORDERABLES Final Result Performing Organization Address [facility] Co de Phone Number [facility] [address] [place] [phone] [phone] * (ABNORMAL) LIPID PANEL, STANDARD (03/05/2021 9:16 AM EDT) Chol/HDLC Ratio 4.1 <5.0 (calc) [facility] Cholesterol, Total 138 <200 mg/dL [...] ?? Ulisses MCDANIEL et al. MANDEEP. 2013;310(19): 7238-4835 ?? (http://education.Kybernesis.anfix/faq/TKU019) Non-HDL Cholesterol 104 <130 mg/dL (calc) [facility] Comment: For patients with diabetes plus 1 major ASCVD risk ?? factor, treating to a non-HDL-C goal of <100 mg/dL ?? (LDL-C of <70 mg/dL) is considered a therapeutic ?? option. Triglycerides 232(H) <150 mg/dL [facility] Comment: ?? If a non-fasting specimen was collected, consider repeat triglyceride testing on a fasting specimen if clinically indicated. ?? Estela et al. J. of Clin. Lipidol. 2015;9:129-169. ?? 03/05/2021 9:16 AM EDT us Sesar Pereyra MD LAB BLOOD ORDERABLES Final Result [facility] [address] from Last 3 Months or Most Recently Relevant to Health Maintenance Insurance [employer] MEDICARE REPLACEMENT [facility] FULL Care Teams Guide Visitor Relationship Specialty Start Date End Date Sesar Pereyra MD [address] [place] [phone] PCP - General Internal Medicine [facility]
--- OUTSIDE RECORDS SUMMARY | 2024-08-20 21:33 | XMS_ITS | Encounter Summary ---
Author Organization [employer] Address 75 [facility] 7t [place] [address] Care Team Providers Care Construction Director Name Role Phone Sesar Pereyra MD Primary Care Provider +1- [phone] Reason for Visit * Reason Onset Date Comments Referral 01/02/2024 Encounter Details Date Type Department Care Team (Late st Contact Info) Description 01/02/2024 Telephone [facility] [address] [place] [address] Sesar Pereyra MD [address] [place], [place] [phone] Referral Social History Tobacco Use Types Packs/Day [...] - 01/02/2024 10:48 AM EDT Tc from [place] the patients [facility] requesting a referral for a gerontologist and would like to be sent to at [facility] in [place] documented in this encounter Plan of Treatment Upcoming Encounters Date Type Department Care Team (Late st Contact Info) Description 09/11/2024 10:30 AM EDT Office Visit [facility] MED & PEDS [address] [place] [address] Sesar Pereyra MD [address] [place] [address] documented as of this encounter Visit Diagnoses Not on filedocumented in this encounter Additional Health Concerns Assessment Noted Time PHQ-9 Depression Total Score: 16 024 10:59 AM EDT documented as of this encounter Care Teams Construction Director Relationship Specialty Start Date End Date Sesar Pereyra MD [address] [place] [address] PCP - General Internal Medicine 03/01/21 [facility] 03/22/24 documented as of this encounter
--- OUTSIDE RECORDS SUMMARY | 2024-08-20 21:33 | XMS_ITS | Encounter Summary ---
Author Organization [employer] Address 75 [facility] 7t [place] [address] Care Team Providers Care Butcher Or Smallgoods Maker Name Role Phone Sesar Pereyra MD Primary Care Provider +1- [phone] Reason for Visit * Reason Comments Med Refill Encounter Details Date Type Department Care Team ([facility] st Contact Info) Description 10/30/2023 Refill [facility] MED & PEDS [address] [place], [place] [phone] Sesar Pereyra MD [address] [place], [place] [phone] PVD (peripheral vascular disease) (CMS/HCC); Longstanding persistent [...] Upcoming Encounters Date Type Department Care Team ([facility] st Contact Info) Description 09/11/2024 10:30 AM EDT Office Visit [facility] MED & PEDS [address] [place] [address] Sesar Pereyra MD [address] [place] [address] documented as of this encounter Visit Diagnoses Diagnosis PVD (peripheral vascular disease) (CMS/HCC) Unspecified peripheral vascular disease Longstanding persistent atrial fibrillation (CMS/HCC) documented in this encounter Additional Health Concerns Assessment Noted Time PHQ-9 Depression Total Score: 16 024 10:59 AM EDT documented as of this encounter Care Teams Butcher Or Smallgoods Maker Relationship Specialty Start Date End Date Sesar Pereyra MD [address] [place] [address] PCP - General Internal Medicine [facility] documented as of this encounter
--- OUTSIDE RECORDS SUMMARY | 2024-08-20 21:33 | XMS_ITS | Encounter Summary ---
Author Organization [employer] Address 75 [facility] 7t [place] [address] Care Team Providers Care Shake Splitter Name Role Phone Sesar Pereyra MD Primary Care Provider +1- [phone] Encounter Details Date Type Department Care Team ([facility] st Contact Info) Description 04/01/2024 Orders Only [facility] MED & PEDS [address] [place], [place] [phone] Sesar Pereyra MD [address] [place] [address] Essential hypertension (Primary Dx) Social History Tobacco [...] [facility] MED & PEDS [address] [place] [address] Sesar Pereyra MD [address] [place] [address] documented as of this encounter Visit Diagnoses Diagnosis Essential hypertension- Primary Unspecified essential hypertension documented in this encounter Additional Health Concerns Assessment Noted Time PHQ-9 Depression Total Score: 16 024 10:59 AM EDT documented as of this encounter Care Teams Shake Splitter Relationship Specialty Start Date End Date Sesar Pereyra MD [address] [place] [address] PCP - General Internal Medicine 03/01/21 [facility] 03/22/24 documented as of this encounter
--- OUTSIDE RECORDS SUMMARY | 2024-08-20 21:33 | XMS_ITS | Encounter Summary ---
Author Organization [employer] Address 75 [facility] 7t [place] [address] Care Team Providers Care Mannequin Coloring Artist Name Role Phone Sesar Pereyra MD Primary Care Provider +1- [phone] Encounter Details Date Type Department Care Team (Late st Contact Info) Description 06/24/2024 Orders Only [facility] MED[facility]INE [address] [place] [address] Sesar Pereyra MD [address] [place] [address] Paroxysmal atrial fibrillation (CMS/HCC) (Primary Dx) Social [...] Upcoming Encounters Date Type Department Care Team ([facility] st Contact Info) Description 09/11/2024 10:30 AM EDT Office Visit [facility] MED & PEDS [address] [place] [address] Sesar Pereyra MD [address] [place] [address] documented as of this encounter Visit Diagnoses Diagnosis Paroxysmal atrial fibrillation (CMS/HCC)- Primary Atrial fibrillation documented in this encounter Additional Health Concerns Assessment Noted Time PHQ-9 Depression Total Score: 16 024 10:59 AM EDT documented as of this encounter Care Teams Mannequin Coloring Artist Relationship Specialty Start Date End Date Sesar Pereyra MD [address] [place] [address] PCP - General Internal Medicine [facility]01[facility] documented as of this encounter
--- OUTSIDE RECORDS SUMMARY | 2024-08-20 21:33 | XMS_ITS | Encounter Summary ---
Author Organization [employer] Address 75 [facility] 7t [place] [address] Care Team Providers Care Helminthology Teacher Name Role Phone Sesar Pereyra MD Primary Care Provider +1- [phone] Encounter Details Date Type Department Care Team ([facility] st Contact Info) Description 11/01/2023 Orders Only [facility] MED & PEDS [address] [place], [place] [phone] Sesar Pereyra MD [address] [place] [address] Social History Tobacco Use Types Packs/Day Years [...] Upcoming Encounters Date Type Department Care Team ([facility] st Contact Info) Description 09/11/2024 10:30 AM EDT Office Visit [facility] MED & PEDS [address] [place] [address] Sesar Pereyra MD [address] [place] [address] documented as of this encounter Visit Diagnoses Not on filedocumented in this encounter Additional Health Concerns Assessment Noted Time PHQ-9 Depression Total Score: 16 024 10:59 AM EDT documented as of this encounter Care Teams Helminthology Teacher Relationship Specialty Start Date End Date Sesar Pereyra MD [address] [place] [address] PCP - General Internal Medicine [facility]/01[facility] documented as of this encounter
--- OUTSIDE RECORDS SUMMARY | 2024-08-20 21:33 | XMS_ITS | Encounter Summary ---
Author Organization [employer] Address [address] [place] [address] 7 [place] [address] Care Team Providers Care Patrol Guard Name Role Phone Sesar Pereyra MD Primary Care Provider +1 [phone] Reason for Referral * Hospital - Outpatient (Routine) - Pending Review Specialty Diagnoses / Procedures Referred By Wander reynolds Referred To Contact Diagnoses Sleep disorder Snoring Procedures Polysomnography Sesar Pereyra MD [address] [place] [address] Phone: tel: fax: [address] Phone: tel: fax: Referral ID Status Reason Start Date Expiration Date V isits Requested Visits Authorized [id number] Pending Review 08/02/2024 08/02/2025 1 1 Encounter Details Date Type Department Care Team (Late st Contact Info) Description 08/01/2024 Orders Only [facility] CHC MED & PEDS [address] [place], [place] [phone] Sesar Pereyra MD [address] [place], [place] [phone] Sleep disorder (Primary Dx); Snoring Social History [...] Description 09/11/2024 10:30 AM EDT Office Visit [facility] MED & PEDS [address] [place] [address] Sesar Pereyra MD [address] [place] [address] Scheduled Orders Name Type Priority Associated Diagnoses [...] ? [facility] ? [address] [facility] [address] ?[place] [address] ?XRay Report ? Signed ? Patient: Alex Nettles ?MR#: [id number] ?? [id number] ? : 1945 ?Acct:[id number] ? Age/Sex: 79 / M ?ADM Date: 08/01/24 ? Loc: HO.HOSX ? Attending Dr: Royce Kothari MD ? Ordering Physician: Royce Kothari MD ?? Date of Service: 08/01/24 ?? Procedure(s): XR shoulder LT min 2V ?? Accession Number(s): [id number] ? cc: Sesar Pereyra MD; Royce Kothari [...] DD/ 1000 ? TD/TT: 08/01/24 1005 ? Chair Pad Maker: ? Procedure Note Hernandez, Image - 08/02/2024 [facility] [address] [place] [address] XRay Report Signed Patient: Alex NettlesMR#: [id number] : 1945cct:[id number] Age/Sex: 79 / MADM Date: 08/01/24 Loc: YANIFatemehLAUREN Attending Dr: Royce Kothari MD Ordering Physician: Royce Kothari MD Date of Service: 08/01/24 Procedure(s): XR shoulder LT min 2V Accession Number(s): [id number] cc: Sesar Pereyra MD; Royce Kothari MD [...] 08/02/24 0811 DD/ 1000 TD/TT: 08/01/24 1005 Chair Pad Maker: [facility] External Provider IMG XR PROCEDURES Final Result documented in this encounter Visit Diagnoses Diagnosis Sleep disorder- Primary Unspecified sleep disturbance Snoring Other dyspnea and respiratory abnormality documented in this encounter Additional Health Concerns Assessment Noted Time PHQ-9 Depression Total Score: 6 07/25/19 25 3:22 PM EDT documented as of this encounter Care Teams Patrol Guard Relationship Specialty Start Date End Date Sesar Pereyra MD [address] [place] [address] PCP - General Internal Medicine 03/01/21 [facility] 03/22/24 documented as of this encounter
--- OUTSIDE RECORDS SUMMARY | 2024-08-20 21:33 | XMS_ITS | Encounter Summary ---
Author Organization [employer] Address 75 [facility] 7t [place] [address] Care Team Providers Care Trim Sawyer Name Role Phone Sesar Pereyra MD Primary Care Provider +1- [phone] Encounter Details Date Type Department Care Team ([facility] st Contact Info) Description 04/29/2024 Orders Only [facility] CHC MED & PEDS [address] [place], [place] [phone] Sesar Pereyra MD [address] [place] [address] Closed nondisplaced fracture of acromial end of [...] Team ([facility] st Contact Info) Description 09/11/2024 10:30 AM EDT Office Visit [facility] MED & PEDS [address] [place] [address] Sesar Pereyra MD [address] [place] [address] documented as of this encounter Visit Diagnoses Diagnosis Closed nondisplaced fracture of acromial end of right clavicle, initial encounter documented in this encounter Additional Health Concerns Assessment Noted Time PHQ-9 Depression Total Score: 16 024 10:59 AM EDT documented as of this encounter Care Teams Trim Sawyer Relationship Specialty Start Date End Date Sesar Pereyra MD [address] [place] [address] PCP - General Internal Medicine [facility] documented as of this encounter
--- OUTSIDE RECORDS SUMMARY | 2024-08-20 21:33 | XMS_ITS | Encounter Summary ---
Author Organization [employer] Address 75 [facility] 7t [place] [address] Care Team Providers Care Regional Agronomist Name Role Phone Sesar Pereyra MD Primary Care Provider +1- [phone] Reason for Visit * Reason Onset Date Comments Medication Question 06/21/2024 Encounter Details Date Type Department Care Team ([facility] st Contact Info) Description 06/21/2024 Telephone [facility] MEDICINE [address] [place] [address] Sesar Pereyra MD [address] [place] [address] Medication Question Social History Tobacco Use Types [...] Miscellaneous Notes * Telephone Encounter - Saravanan Jones - 06/21/2024 9:35 AM EST Tc from [...] to Discontinue the medication. Contact Conrad at [phone] Ext [phone] The Voicemail is private so you are able to Leave a message in there. documented in this encounter Plan of Treatment Upcoming Encounters Date Type Department Care Team (Late st Contact Info) Description 09/11/2024 10:30 AM EDT Office Visit [facility] MED & PEDS [address] [place] [address] Sesar Pereyra MD [address] [place] [address] documented as of this encounter Visit Diagnoses Not on filedocumented in this encounter Additional Health Concerns Assessment Noted Time PHQ-9 Depression Total Score: 16 024 10:59 AM EDT documented as of this encounter Care Teams Regional Agronomist Relationship Specialty Start Date End Date Sesar Pereyra MD [address] [place] [address] PCP - General Internal Medicine [facility]01[facility] 03/[facility] documented as of this encounter
--- OUTSIDE RECORDS SUMMARY | 2024-08-20 21:33 | XMS_ITS | Encounter Summary ---
Author Organization [employer] Address 75 [facility] [address] [address] Care Team Providers Care Repairer Pump Name Role Phone Sesar Pereyra MD Primary Care Provider +1- [phone] Reason for Referral * Consultation (Routine) - Closed Specialty Diagnoses / Procedures Referred By Wander reynolds Referred To Contact Geriatric Medicine Diagnoses Memory disturbance Sesar Pereyra MD [address] [place] [address] Phone: tel: fax: [facility] [address] [place] [address] Phone: tel: fax: Referral ID Status Reason Start Date Expiration Date V isits Requested Visits Authorized [id number] Closed Specialty Services Required 01/11/2024 01/10/2025 1 1 Encounter Details Date Type Department Care Team (Late st Contact Info) Description 01/11/2024 Orders Only [facility] CHC MED & PEDS [address] [place], [place] [phone] Sesar Pereyra MD [address] [place] [address] Memory disturbance (Primary Dx) Social History Tobacco [...] Upcoming Encounters Date Type Department Care Team ([facility] st Contact Info) Description 09/11/2024 10:30 AM EDT Office Visit [facility] MED & PEDS [address] [place] [address] Sesar Pereyra MD [address] [place] [address] Scheduled Referrals Name Type Priority Associated Diagnoses Orde r Schedule Referral to Geriatrics Outpatient Referral Routine Memory disturbance Expected: 01/11/2024 (Approximate), Expires: 01/10/2025 documented as of this encounter Visit Diagnoses Diagnosis Memory disturbance- Primary Memory loss documented in this encounter Additional Health Concerns Assessment Noted Time PHQ-9 Depression Total Score: 16 024 10:59 AM EDT documented as of this encounter Care Teams Repairer Pump Relationship Specialty Start Date End Date Sesar Pereyra MD [address] [place] [address] PCP - General Internal Medicine 03/01/21 [facility] 03/22/24 documented as of this encounter
--- OUTSIDE RECORDS SUMMARY | 2024-08-20 21:33 | XMS_ITS | Encounter Summary ---
Author Organization [employer] Address 75 [facility] 7t [place] [address] Care Team Providers Care Mononitrotoluene Operator Name Role Phone Sesar Pereyra MD Primary Care Provider +1- [phone] Reason for Visit * Reason Comments Med Refill Encounter Details Date Type Department Care Team ([facility] Contact Info) Description 06/10/2022 Refill [facility] MED & PEDS [address] [place] [address] Sesar Pereyra MD [address] [place] [address] Primary insomnia Social History Tobacco Use Types [...] [facility] [address] [place] [address] Sesar Pereyra MD [address] [place] [address] documented as of this encounter Visit Diagnoses Diagnosis Primary insomnia Persistent disorder of initiating or maintaining sleep documented in this encounter Care Teams Mononitrotoluene Operator Relationship Specialty Start Date End Date Sesar Pereyra MD [address] [place] [address] PCP - General Internal Medicine 03/01/21 [facility] 03/22/24 documented as of this encounter
--- OUTSIDE RECORDS SUMMARY | 2024-08-20 21:33 | XMS_ITS | Encounter Summary ---
Author Organization [employer] Address 75 [facility] 7t [place] [address] Care Team Providers Care Flap Curer Name Role Phone Sesar Pereyra MD Primary Care Provider +1- [phone] Encounter Details Date Type Department Care Team (Late st Contact Info) Description 04/02/2024 Orders Only [facility] [address] [place] [address] Provider, MD Jazmyn Social History Tobacco Use [...] AM EDT Office Visit [facility] MED & PEDS [address] [place] [address] Sesar Pereyra MD [address] [place] [address] documented as of this encounter Procedures Procedure [...] documented as of this encounter Care Teams Flap Curer Relationship Specialty Start Date End Date Sesar Pereyra MD [address] [place] [address] PCP - General Internal Medicine [facility]01[facility] documented as of this encounter
--- OUTSIDE RECORDS SUMMARY | 2024-08-20 21:33 | XMS_ITS | Encounter Summary ---
Author Organization [employer] Address 75 [facility] 7t [place] [address] Care Team Providers Care Wood Room Supervisor Name Role Phone Sesar Pereyra MD Primary Care Provider +1- [phone] Reason for Visit * Reason Onset Date Comments Med Refill 04/18/2024 Encounter Details Date Type Department Care Team ([facility] st Contact Info) Description 04/18/2024 Telephone [facility] MEDICINE [address] [place] [address] Sesar Pereyra MD [address] [place] [address] Med Refill Social History Tobacco Use Types [...] Miscellaneous Notes * Telephone Encounter - Thanh Barrientos - 04/18/2024 8:57 AM EST TC from pt requesting medication refill. oxyCODONE (Roxicodone) 5 MG immediate release tablet amphetamine-dextroamphetamine (Adderall) 7.5 MG tablet Medications needing refill : To be sent to: [facility] [address] - [address] [place] documented in this encounter Plan of Treatment Upcoming Encounters Date Type Department Care Team (Late st Contact Info) Description 09/11/2024 10:30 AM EDT Office Visit [facility] MED & PEDS [address] [place] [address] Sesar Pereyra MD [address] [place] [address] documented as of this encounter Visit Diagnoses Not on filedocumented in this encounter Additional Health Concerns Assessment Noted Time PHQ-9 Depression Total Score: 16 024 10:59 AM EDT documented as of this encounter Care Teams Wood Room Supervisor Relationship Specialty Start Date End Date Sesar Pereyra MD [address] [place] [address] PCP - General Internal Medicine 03/01/21 [facility] 03/22/24 documented as of this encounter
--- OUTSIDE RECORDS SUMMARY | 2024-08-20 21:33 | XMS_ITS | Encounter Summary ---
Author Organization [employer] Address 75 [facility] 7t [place] [address] Care Team Providers Care Honing Machine Operator Name Role Phone Sesar Pereyra MD Primary Care Provider +1- [phone] Encounter Details Date Type Department Care Team ([facility] Contact Info) Description 07/10/2024 Telephone [facility] MED & PEDS [address] [place], [place] [phone] Sesar Pereyra MD [address] [place] [address] Social History Tobacco Use Types Packs/Day Years [...] tablet was sent to the incorrect pharmacy. [facility] requested a transfer but was til to contact pcp office . Preferred pharmacy [facility] [address] [facility] been without meds. documented in this encounter Plan of Treatment Upcoming Encounters Date Type Department Care Team ([facility] st Contact Info) Description 09/11/2024 10:30 AM EDT Office Visit [facility] MED & PEDS [address] [place] [address] Sesar Pereyra MD [address] [place] [address] documented as of this encounter Visit Diagnoses Not on filedocumented in this encounter Additional Health Concerns Assessment Noted Time PHQ-9 Depression Total Score: 16 024 10:59 AM EDT documented as of this encounter Care Teams Honing Machine Operator Relationship Specialty Start Date End Date Sesar Pereyra MD [address] [place] [address] PCP - General Internal Medicine 03/01/21 [facility] 03/22/24 documented as of this encounter
--- OUTSIDE RECORDS SUMMARY | 2024-08-20 21:33 | XMS_ITS | Encounter Summary ---
Author Organization [employer] Address 75 [facility] 7t [place] [address] Care Team Providers Care Industrial Energy Engineer Name Role Phone Sesar Pereyra MD Primary Care Provider +1- [phone] Reason for Visit * Reason Onset Date Comments Med Refill 08/08/2024 Encounter Details Date Type Department Care Team (Late st Contact Info) Description 08/08/2024 Telephone [facility] MEDICINE [address] [place] [address] Sesar Pereyra MD [address] [place] [address] Med Refill Social History Tobacco Use Types [...] housing situation today? I have yenny lamine 07/24/[address] you li [...] * Telephone Encounter - Saravanan Jones - 08/08/2024 3:02 PM EDT TC from pt requesting medication refill. Medications needing refill : clonazePAM (KlonoPIN) 0.5 MG tablet To be sent to: [facility] - [address] [place] [address] [place] documented in this encounter Plan of Treatment Upcoming Encounters Date Type Department Care Team (Late st Contact Info) Description 09/11/2024 10:30 AM EDT Office Visit [facility] MED & PEDS [address] [place] [address] Sesar Pereyra MD [address] [place] [address] documented as of this encounter Visit Diagnoses Not on filedocumented in this encounter Additional Health Concerns Assessment Noted Time PHQ-9 Depression Total Score: 6 07/25/19 25 3:22 PM EDT documented as of this encounter Care Teams Industrial Energy Engineer Relationship Specialty Start Date End Date Sesar Pereyra MD [address] [place] [address] PCP - General Internal Medicine 03/01/21 [facility] 03/22/24 documented as of this encounter
--- OUTSIDE RECORDS SUMMARY | 2024-08-20 21:33 | XMS_ITS | Encounter Summary ---
Author Organization [employer] Address 75 [facility] 7t [place] [address] Care Team Providers Care Junior Network Administrator Name Role Phone Sesar Pereyra MD Primary Care Provider +1- [phone] Encounter Details Date Type Department Care Team ([facility] st Contact Info) Description 05/30/2024 Telephone [facility] MEDICINE [address] [place] [address] Sesar Pereyra MD [address] [place] [address] Social History Tobacco Use Types Packs/Day Years [...] Description 09/11/2024 10:30 AM EDT Office Visit [facility] MED & PEDS [address] [place] [address] Sesar Pereyra MD [address] [place] [address] documented as of this encounter Visit Diagnoses Not on filedocumented in this encounter Additional Health Concerns Assessment Noted Time PHQ-9 Depression Total Score: 16 024 10:59 AM EDT documented as of this encounter Care Teams Junior Network Administrator Relationship Specialty Start Date End Date Sesar Pereyra MD [address] [place] [address] PCP - General Internal Medicine [facility] documented as of this encounter
--- OUTSIDE RECORDS SUMMARY | 2024-08-20 21:33 | XMS_ITS | Encounter Summary ---
Author Organization [employer] Address 75 [facility] 7t [place] [address] Care Team Providers Care Cotton Baler Name Role Phone Sesar Pereyra MD Primary Care Provider +1- [phone] Reason for Visit * Reason Onset Date Comments Med Refill 04/26/2024 Encounter Details Date Type Department Care Team ([facility] st Contact Info) Description 04/26/2024 Telephone [facility] MEDICINE [address] [place] [address] Sesar Pereyra MD [address] [place] [address] Med Refill Social History Tobacco Use Types [...] 7.5 MG tablet To be sent to: [facility] - [place], [place] - [address] [facility] [place] documented in this encounter Plan of Treatment Upcoming Encounters Date Type Department Care Team (Late st Contact Info) Description 09/11/2024 10:30 AM EDT Office Visit [facility] MED & PEDS [address] [place] [address] Sesar Pereyra MD [address] [place] [address] documented as of this encounter Visit Diagnoses Not on filedocumented in this encounter Additional Health Concerns Assessment Noted Time PHQ-9 Depression Total Score: 16 024 10:59 AM EDT documented as of this encounter Care Teams Cotton Baler Relationship Specialty Start Date End Date Sesar Pereyra MD [address] [place] [address] PCP - General Internal Medicine 03/01/21 [facility] 03/22/24 documented as of this encounter
--- OUTSIDE RECORDS SUMMARY | 2024-08-20 21:33 | XMS_ITS | Encounter Summary ---
Author Organization [employer] Address 75 [facility] 7t [place] [address] Care Team Providers Care Equipment Cleaner And Tester Name Role Phone Sesar Pereyra MD Primary Care Provider +1- [phone] Reason for Visit * Reason Onset Date Comments Lab Orders 05/30/2024 Referral 05/30/2024 Encounter Details Date Type Department Care Team (Late st Contact Info) Description 05/30/2024 Telephone [facility] MEDICINE [address] [place] [address] Sesar Pereyra MD [address] [place], [place] [phone] Lab Orders; Referral Social History Tobacco Use [...] * Telephone Encounter - Thanh Barrientos - 05/30/2024 4:03 PM EST Tc from pt requesting a call back in regards to MRI scheduled in the past and would like to reschedule and get a referral. documented in this encounter Plan of Treatment Upcoming Encounters Date Type Department Care Team (Late st Contact Info) Description 09/11/2024 10:30 AM EDT Office Visit [facility] MED & PEDS [address] [place] [address] Sesar Pereyra MD [address] [place] [address] documented as of this encounter Visit Diagnoses Not on filedocumented in this encounter Additional Health Concerns Assessment Noted Time PHQ-9 Depression Total Score: 16 024 10:59 AM EDT documented as of this encounter Care Teams Equipment Cleaner And Tester Relationship Specialty Start Date End Date Sesar Pereyra MD [address] [place] [address] PCP - General Internal Medicine 03/01/21 [facility] 03/22/24 documented as of this encounter
--- OUTSIDE RECORDS SUMMARY | 2024-08-20 21:33 | XMS_ITS | Encounter Summary ---
Author Organization [employer] Address 75 [facility] 7t [place] [address] Care Team Providers Care Welding Machine Operator Name Role Phone Sesar Pereyra MD Primary Care Provider +1- [phone] Reason for Visit * Reason Onset Date Comments Med Refill 04/02/2024 Encounter Details Date Type Department Care Team (Late st Contact Info) Description 04/02/2024 Telephone [facility] MEDICINE [address] [place] [address] Sesar Pereyra MD [address] [place] [address] Med Refill Social History Tobacco Use Types [...] 9:39 AM EST Medication was sent to [facility] on 04/01/24 #30 with 11 refills. * Telephone Encounter - Miri Young - 04/02/2024 9:33 AM EST TC from pt requesting medication refill. Medications needing refill : metoprolol tartrate (Lopressor) 25 MG tablet To be sent to: [facility] documented in this encounter Plan of Treatment Upcoming Encounters Date Type Department Care Team (Late st Contact Info) Description 09/11/2024 10:30 AM EDT Office Visit [facility] CH[facility] MED & PEDS [address] [place] [address] Sesar Pereyra MD [address] [place] [address] documented as of this encounter Visit Diagnoses Not on filedocumented in this encounter Additional Health Concerns Assessment Noted Time PHQ-9 Depression Total Score: 16 024 10:59 AM EDT documented as of this encounter Care Teams Welding Machine Operator Relationship Specialty Start Date End Date Sesar Pereyra MD [address] [place] [address] PCP - General Internal Medicine 03/01[facility]21 [facility] documented as of this encounter
--- OUTSIDE RECORDS SUMMARY | 2024-08-20 21:33 | XMS_ITS | Encounter Summary ---
Author Organization [employer] Address 75 [facility] 7t [place] [address] Care Team Providers Care 21 Dealer Name Role Phone Sesar Pereyra MD Primary Care Provider +1- [phone] Reason for Visit * Reason Onset Date Comments Med Refill 04/11/2024 Encounter Details Date Type Department Care Team (Late st Contact Info) Description 04/11/2024 Refill [facility] MEDICINE [address] [place] [address] Natasha Jiang MD [address] [place] [address] Closed nondisplaced fracture of acromial end of [...] 09/11/2024 10:30 AM EDT Office Visit [facility] MED & PEDS 505 [place] [address] Sesar Pereyra MD [address] [place] [address] documented as of this encounter Visit Diagnoses Diagnosis Closed nondisplaced fracture of acromial end of right clavicle, initial encounter documented in this encounter Additional Health Concerns Assessment Noted Time PHQ-9 Depression Total Score: 16 024 10:59 AM EDT documented as of this encounter Care Teams 21 Dealer Relationship Specialty Start Date End Date Sesar Pereyra MD [address] [place] [address] PCP - General Internal Medicine [facility] documented as of this encounter
--- OUTSIDE RECORDS SUMMARY | 2024-08-20 21:33 | XMS_ITS | Encounter Summary ---
Author Organization [employer] Address 75 [facility] 7t [place] [address] Care Team Providers Care Federal Appellate Clerk Name Role Phone Sesar Pereyra MD Primary Care Provider +1- [phone] Reason for Visit * Reason Comments Med Refill Encounter Details Date Type Department Care Team ([facility] Contact Info) Description 10/19/2022 Refill [facility] MED & PEDS [address] [place] [address] Sesar Pereyra MD [address] [place] [address] Social History Tobacco Use Types Packs/Day Years [...] Upcoming Encounters Date Type Department Care Team ([facility] Contact Info) Description 09/11/2024 10:30 AM EDT Office Visit [facility] MED & PEDS [address] [place] [address] Sesar Pereyra MD [address] [place] [address] documented as of this encounter Visit Diagnoses Not on filedocumented in this encounter Care Teams Federal Appellate Clerk Relationship Specialty Start Date End Date Sesar Pereyra MD [address] [place] [address] PCP - General Internal Medicine 03/01/21 [facility] 03/22/24 documented as of this encounter
--- OUTSIDE RECORDS SUMMARY | 2024-08-20 21:33 | XMS_ITS | Clinical Summary ---
Author Organization [facility] Address [address] [place] [address] Care Team Providers Care Chinchilla Farmer Name Role Phone Nuha Galvin PA-C Primary Care Provider [phone] Source Comments PLEASE NOTE, if this patient [...] Date Sleep disorder 02/02/2015 Overview (02/02/2015): Saw [facility] and sleep on 01/15/2015: Dr. Johnson [...] once a year. In remission Seen at [facility] urology Depression with anxiety 04/01/2014 Overview (04/01/2014): Dr. Pradhan at [facility]. Is going to establish care at a new facility. 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 Hensley in 2006. Sees this doctor once a year at [facility]. Follows up with this facility every 6 months. 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
--- OUTSIDE RECORDS SUMMARY | 2024-08-20 21:33 | XMS_ITS | Encounter Summary ---
Author Organization [employer] Address 75 [facility] 7t [place] [address] Care Team Providers Care Bladder Cleaner Name Role Phone Sesar Pereyra MD Primary Care Provider [phone]- [phone] Reason for Visit * Reason Comments Med Refill Encounter Details Date Type Department Care Team (Late st Contact Info) Description 08/29/2023 Refill [facility] MEDICINE [address] [place] [address] Sesar Pereyra MD [address] [place] [address] Social History Tobacco Use Types Packs/Day Years [...] Upcoming Encounters Date Type Department Care Team ([facility] st Contact Info) Description 09/11/2024 10:30 AM EDT Office Visit [facility] MED & PEDS [address] [place] [address] Sesar Pereyra MD [address] [place] [address] documented as of this encounter Visit Diagnoses Not on filedocumented in this encounter Additional Health Concerns Assessment Noted Time PHQ-9 Depression Total Score: 16 024 10:59 AM EDT documented as of this encounter Care Teams Bladder Cleaner Relationship Specialty Start Date End Date Sesar Pereyra MD [address] [place] [address] PCP - General Internal Medicine 03/01/21 [facility] documented as of this encounter
--- OUTSIDE RECORDS SUMMARY | 2024-08-20 21:33 | XMS_ITS | Encounter Summary ---
Author Organization [employer] Address 75 [facility] 7t [place] [address] Care Team Providers Care Advanced Manufacturing Associate Name Role Phone Sesar Pereyra MD Primary Care Provider [phone]- [phone] Reason for Visit * Reason Onset Date Comments fyi 05/28/2024 Encounter Details Date Type Department Care Team (Late st Contact Info) Description 05/28/2024 Telephone [facility] MEDICINE [address] [place] [address] Sesar Pereyra MD [address] [place], [place] [phone] fyi Social History Tobacco Use Types Packs/Day [...] [facility] pt verbalized to her that [...] [facility] [address] [place] [address] Sesar Pereyra MD [address] [place] [address] documented as of this encounter Visit Diagnoses Not on filedocumented in this encounter Additional Health Concerns Assessment Noted Time PHQ-9 Depression Total Score: 16 024 10:59 AM EDT documented as of this encounter Care Teams Advanced Manufacturing Associate Relationship Specialty Start Date End Date Sesar Pereyra MD [address] [place] [address] PCP - General Internal Medicine 03/01/21 [facility] 03/22/24 documented as of this encounter
--- OUTSIDE RECORDS SUMMARY | 2024-08-20 21:33 | XMS_ITS | Encounter Summary ---
Author Organization [employer] Address 75 [facility] 7t [place] [address] Care Team Providers Care Shaper Hand Name Role Phone Sesar Pereyra MD Primary Care Provider +1- [phone] Reason for Visit * Reason Onset Date Comments Med Refill 04/28/2024 Encounter Details Date Type Department Care Team ([facility] st Contact Info) Description 04/28/2024 Refill [facility] MED & PEDS [address] [place], [place] [phone] Sesar Pereyra MD [address] [place] [address] Social History Tobacco Use Types Packs/Day Years [...] Upcoming Encounters Date Type Department Care Team ([facility] st Contact Info) Description 09/11/2024 10:30 AM EDT Office Visit [facility] MED & PEDS [address] [place] [address] Sesar Pereyra MD [address] [place] [address] documented as of this encounter Visit Diagnoses Not on filedocumented in this encounter Additional Health Concerns Assessment Noted Time PHQ-9 Depression Total Score: 16 024 10:59 AM EDT documented as of this encounter Care Teams Shaper Hand Relationship Specialty Start Date End Date Sesar Pereyra MD [address] [place] [address] PCP - General Internal Medicine 03/01[facility] 03/[facility] documented as of this encounter
--- OUTSIDE RECORDS SUMMARY | 2024-08-20 21:33 | XMS_ITS | Encounter Summary ---
Author Organization [employer] Address 75 [facility] 7t [place] [address] Care Team Providers Care Rec Therapist Name Role Phone Sesar Pereyra MD Primary Care Provider +1- [phone] Encounter Details Date Type Department Care Team (Late st Contact Info) Description 07/10/[address] [facility] MEDICINE [address] [place] [address] Sesar Pereyra MD [address] [place] [address] Memory disturbance (Primary Dx) Social History Tobacco [...] Upcoming Encounters Date Type Department Care Team ([facility] st Contact Info) Description 09/11/2024 10:30 AM EDT Office Visit [facility] MED & PEDS [address] [place] [address] Sesar Pereyra MD [address] [place] [address] documented as of this encounter Visit Diagnoses Diagnosis Memory disturbance- Primary Memory loss documented in this encounter Additional Health Concerns Assessment Noted Time PHQ-9 Depression Total Score: 16 024 10:59 AM EDT documented as of this encounter Care Teams Rec Therapist Relationship Specialty Start Date End Date Sesar Pereyra MD [address] [place] [address] PCP - General Internal Medicine 03/01/21 [facility] 03/22/24 documented as of this encounter
[2024-08-20 21:34] LABS: Influenza A PCR NEGATIVE (Negative); Influenza B PCR NEGATIVE (Negative); Resp Syncy Virus RNA Qual PCR NEGATIVE (Negative); SARS COV2 PCR INHOUSE NEGATIVE (Negative)
[2024-08-20 22:00] VITALS: BP 183/93; PULSE 70; RESP 16; O2SAT 95
[2024-08-21] VITALS (10 sets, daily range): BP systolic 123–198; BP diastolic 64–94; PULSE 55–72; RESP 15–20; TEMP 36.2–36.7; O2SAT 92–97; BMI 30.8
--- NOTE | 2024-08-21 00:22 | ED_ITS ---
HPI - SOB/Dyspnea General Chief Complaint: Dyspnea Stated Complaint: sob bilateral edema Time Seen by Provider: 08/21/24 00:08 Source: patient and EMS Mode of arrival: EMS Limitations: no limitations History of Present Illness ED Provider: DR. Hong HPI Narrative: 79-year-old male with history of CAD, paroxysmal AFib on Eliquis, CKD 3, HLD, HTN, BPH, mood disorder, acute respiratory failure secondary to multilobar pneumonia presented to the ED for shortness of breath and difficulty breathing for the past 2 days, shortness of breath is persistent at all times, is worsening with exertion, increased lower extremity edema, patient can not sleep supine at night because of increased shortness of breath. Patient is also complaining of left shoulder pain patient had left shoulder surgery a month ago for left shoulder fracture. Related Data Home Medications ?Medication ?Instructions ?Recorded ?Confirmed docusate sodium 100 mg capsule 100 mg PO DAILY 08/17/21 07/15/24 apixaban 5 mg tablet (Eliquis) 5 mg PO BID 01/27/22 07/15/24 atorvastatin 80 mg tablet 80 mg PO DAILY 01/27/22 07/15/24 sertraline 50 mg tablet 50 mg PO DAILY 07/06/22 07/15/24 quetiapine 25 mg tablet 25 mg PO BID 12/28/22 07/15/24 tamsulosin 0.4 mg capsule 0.4 mg PO DAILY 03/07/23 07/15/24 cilostazol 50 mg tablet 50 mg PO BID 03/27/23 07/15/24 clonazepam 0.5 mg tablet 0.5 mg PO BID Anxiety 11/15/23 07/15/24 dextroamphetamine-amphetamine 7.5 1 tab PO DAILY 03/18/24 07/15/24 mg tablet melatonin 3 mg capsule 3 mg PO BEDTIME PRN Sleep 04/12/24 07/15/24 aspirin 81 mg tablet,delayed 81 mg PO DAILY 07/11/24 07/15/24 release metoprolol tartrate 25 mg tablet 12.5 mg PO BID 07/11/24 07/15/24 Previous Rx's ?Medication ?Instructions ?Recorded dronedarone 400 mg tablet (Multaq) 400 mg PO BID #180 tabs 03/21/24 furosemide 40 mg tablet 40 mg PO DAILY #90 tabs 04/16/24 hydralazine 25 mg tablet 25 mg PO BID 30 days #60 tabs 04/19/24 gabapentin 100 mg capsule 100 - 300 mg (1 - 3 x 100 mg) PO 05/06/24 BEDTIME Pain (Scale Score 1-3) 30 days #90 caps polyethylene glycol 3350 17 gram 17 g PO BEDTIME 30 days #30 ea 06/23/24 oral powder packet albuterol sulfate 90 mcg/actuation 2 puff inhalation RQ4H PRN sob #1 g 07/13/24 aerosol inhaler (Ventolin HFA) azithromycin 500 mg tablet 500 mg PO DAILY #3 tabs 07/13/24 cefuroxime axetil 500 mg tablet 500 mg PO BID #10 tabs 07/13/24 dextromethorphan-guaifenesin 10 10 ml PO Q6H PRN Cough #237 mL 07/13/24 mg-100 mg/5 mL oral syrup celecoxib 200 mg capsule (Celebrex) 200 mg PO DAILY #30 caps 08/01/24 oxycodone 5 mg tablet 5 mg PO Q8H PRN pain #21 tabs 08/12/24 Allergies Allergy/AdvReac Type Severity Reaction Status Date / Time No Known Allergies Allergy Verified 08/20/24 20:28 [No Known Allergies*] Review of Systems 2 Review of Systems: All other systems are reviewed and are negative Constitutional: Reports as per HPI and Reports no additional constitutional complaints Eyes: Reports as per HPI and Reports no additional eye complaints Reports system reviewed and no additional complaints, except as documented Cardiovascular: Reports as per HPI and Reports no additional cardiovascular complaints Respiratory: Reports as per HPI and Reports no additional respiratory complaints Gastrointestinal: Reports as per HPI and Reports no additional gastrointestinal complaints Genitourinary: Reports no additional female genitourinary complaints Musculoskeletal: Reports no additional musculoskeletal complaints Skin/Breast: Reports system reviewed and no additional complaints, except as docu Psychiatric: Reports no additional psychiatric complaints Endocrine: Reports no additional endocrine complaints Hematologic/Lymphatic: Reports no additional hematologic/lymphatic complaints Allergic/Immunologic: Reports no additional allergic/immunologic complaints Reports system reviewed and no additional complaints, except as documented and Reports Abnormal speech present [facility] Past Medical History Medical History Paroxysmal atrial flutter Preoperative cardiovascular examination Coronary artery disease Hypersomnia Snoring Neuropathy Atherosclerotic cardiovascular disease History of alcohol abuse History of COVID-19 On beta jose at home COPD (chronic obstructive pulmonary disease) On anticoagulant therapy History of atrial fibrillation PVD (peripheral vascular disease) Renal cell carcinoma Hypertension Depression Anxiety Diverticulitis Surgical History History of intestinal surgery History of kidney surgery H/O cardiac catheterization History of colectomy S/P femoral-femoral bypass surgery Social History Social History Household Members: Significant Other Housing: House Are you a primary child care attendant to a significant other at home: No Do you presently have visiting nurse or other home services: No Alcohol intake: never Patient Tobacco Use Status: Former Tobacco user Tobacco use type: Cigarette Smoked in Last 30 Days: No Second Hand Smoke Exposure: No Use of substances other than those prescribed or required for medical reasons: No Substance Use Type: Marijuana Advance Directives: Yes Advance Directives on File: Yes Advance Directives Date on File: 06/09/21 Do you have a plan to hurt others: No Plan service: Yes Current occupational status: retired Current occupation: right hand dominant Physical Exam 2 Vital Signs: Vital Signs: Last Vital Signs Temp 98.2 F 08/20/24 20:31 Pulse 70 08/20/24 22:00 Resp 16 08/20/24 22:00 BP 183/93 H 08/20/24 22:00 Pulse Ox 95 08/20/24 22:00 O2 Del Method Room Air 08/20/24 22:00 BMI result Body Mass Index 32.4 Vital signs have been reviewed and appear to be correct. Blood pressure elevated. Heart rate normal. Respiratory rate normal. Temperature normal. Oxygen saturation normal. Appearance: Alert. Oriented X3. No acute distress. Head: Normal external exam. Normocephalic. Atraumatic. No Jimenez signs noted. No raccoon eyes noted Eyes: PERRLA. EOMI. Conjunctiva and sclera normal. Eyelids normal. ENT: TM's Normal. Pharynx normal. Uvula midline. Moist mucous membranes. No trismus noted. No drooling noted. No muffled voice noted. Neck: Normal inspection. Neck supple. FROM. No adenopathy. Thyroid Normal. No meningeal signs. No neck mass noted. CVS: Normal heart rate and rhythm. Heart sound normal. No murmurs noted. Pulses normal throughout. Respiratory: No respiratory distress. Painless inspiration. Breath sounds normal. No wheezes/rales/rhonchi noted. Chest nontender. No accessory muscle usage noted or decreased air movement noted. Abdomen: Soft and nontender. Bowel sounds normal in all 4 quadrants. No distention noted. No organomegaly noted. No visible injury noted. Back: No CVA tenderness. Full range of motion noted. Skin: Skin warm and dry. Normal skin color. Normal skin turgor. No rashes/lesions/lacerations noted. Extremities: +2 lower extremity edema. Extremities exhibit normal range of motion. Extremities nontender. Neuro: Oriented X 3. Cranial nerve exam: II-XII are grossly intact No motor deficit. No sensory deficit. Reflexes normal. Course Reevaluation(s) Reevaluation #1: CHF. Lasix, nitro. Admit for further evaluation. Time: 00:33 Medical Decision Making Differential Diagnosis Differential Diagnoses: The differential diagnosis associated with the presentation includes (ACS, CHF, pneumonia, pneumothorax, pleural effusion, electrolyte derangement, severe anemia.) Admission/Observation Consideration of admission/observation: Escalation of care including admission/observation considered Consult Healthcare Provider Management of the patient was discussed with: Hospitalist (Dr. Serrano) Lab Data MDM Lab Attestation statement: I reviewed the patient's lab results. 08/20/24 20:47 08/20/24 20:47 Labs: Lab Results 08/20/24 Range/Units 20:47 WBC 7.9 (4.8-10.8) X10*3/uL RBC 4.19 L (4.60-5.80) X10*6/uL Hgb 13.0 L (14.0-18.0) g/dl Hct 39.1 L (42.0-52.0) % MCV 93.3 (80.0-98.0) fL MCH 31.0 (27.0-33.0) pg MCHC 33.2 (31.0-36.0) g/dl RDW 16.8 H (11.0-16.0) % Plt Count 268 (160-400) X10*3/uL MPV 9.8 (9.4-12.4) fL Immature Gran % (Auto) 0.3 (0.0-0.4) % Neut % (Auto) 73.4 H (45-73) % Lymph % (Auto) 13.2 L (20-40) % Mills % (Auto) 10.1 (2-11) % Eos % (Auto) 2.5 (0-4) % Baso % (Auto) 0.5 (0-2) % Lymph # (Auto) 1.0 L (1.2-4.9) X10*3/uL Mills # (Auto) 0.8 (0.1-1.2) X10*3/uL Eos # (Auto) 0.2 (0.0-0.4) X10*3/uL Baso # (Auto) 0.0 (0.0-0.2) X10*3/uL Abs Immat Gran (auto) 0.02 (0.00-0.03) X10*3/uL Absolute Neuts (auto) 5.8 (2.0-8.3) x10*3/uL Absolute Nucleated RBC 0.000 (0.0-0.012) X10*3/uL Nucleated RBC % (auto) 0.0 (0.0-0.2) /100WBC PT 14.9 H (10.9-12.4) SEC INR 1.3 H (0.9-1.1) Sodium 145 (135-145) mmol/L Potassium 4.4 (3.3-5.1) mmol/L Chloride 109 H (96-108) mmol/L Carbon Dioxide 27 (22-29) mmol/L Anion Gap 13 (12-20) BUN 25 H (9-16) mg/dL Creatinine 1.71 H (0.5-1.4) mg/dL Estim Creat Clear Calc 47.3 Estimated GFR 39 Random Glucose 95 (60-115) mg/dL Calcium 8.7 (8.4-10.2) mg/dL Total Bilirubin 0.4 (0.0-1.0) mg/dL AST 28 (5-37) U/L ALT 18 (0-40) U/L Alkaline Phosphatase 104 (39-117) U/L Troponin I High Sens 13.9 (<3.5-35.0) ng/L B-Natriuretic Peptide 317 H (<100) pg/mL Total Protein 6.3 L (6.5-8.0) g/dL Albumin 3.7 (3.5-5.0) g/dL Influenza Type A (PCR) NEGATIVE (Negative) Influenza Type B (PCR) NEGATIVE (Negative) RSV RNA Qual (PCR) NEGATIVE (Negative) SARS-CoV-2 RNA (RT-PCR) NEGATIVE (Negative) Independent Interpretation I performed an independent interpretation of an: Plain X-Ray (Chest:. Small left pleural effusion with left basilar atelectasis/consolidation. 2. Mild additional interstitial opacities as can be seen with recurrent edema and pneumonitis.) Radiology Impression Discussion of test interpretation with radiology: I have reviewed the radiologist's reading. Discharge Plan Discharge Clinical Impression: Acute dyspnea, CHF (congestive heart failure), Acute kidney injury superimposed on CKD Patient Disposition: Admitted As Inpatient Prescriptions: No Action cilostazol 50 mg tablet 50 mg PO BID furosemide 40 mg tablet 40 mg PO DAILY Qty: 90 3RF gabapentin 100 mg capsule 100 - 300 mg PO BEDTIME 30 Days Qty: 90 6RF oxycodone 5 mg tablet 5 mg PO Q8H PRN (Reason: pain) Qty: 21 0RF Rx Instructions: Partial Fill upon patient request. atorvastatin 80 mg tablet 80 mg PO DAILY Eliquis 5 mg tablet 5 mg PO BID sertraline 50 mg tablet 50 mg PO DAILY polyethylene glycol 3350 17 gram Powder In Packet 17 g PO BEDTIME 30 Days Qty: 30 0RF dextroamphetamine-amphetamine 7.5 mg tablet 1 tab PO DAILY Multaq 400 mg Tablet 400 mg PO BID Qty: 180 0RF aspirin 81 mg tablet,delayed release (DR/EC) 81 mg PO DAILY metoprolol tartrate 25 mg tablet 12.5 mg PO BID dextromethorphan-guaifenesin 10-100 mg/5 mL Syrup 10 ml PO Q6H PRN (Reason: Cough) Qty: 237 0RF albuterol sulfate [Ventolin HFA] 90 mcg/actuation Hfa Aerosol Inhaler 2 puff inhalation RQ4H PRN (Reason: sob) Qty: 1 0RF azithromycin 500 mg tablet 500 mg PO DAILY Qty: 3 0RF cefuroxime axetil 500 mg tablet 500 mg PO BID Qty: 10 0RF docusate sodium 100 mg capsule 100 mg PO DAILY quetiapine 25 mg tablet 25 mg PO BID clonazepam 0.5 mg tablet 0.5 mg PO BID hydralazine 25 mg tablet 25 mg PO BID 30 Days Qty: 60 4RF Rx Instructions: New med for BP celecoxib [Celebrex] 200 mg capsule 200 mg PO DAILY Qty: 30 1RF tamsulosin 0.4 mg capsule 0.4 mg PO DAILY melatonin 3 mg capsule 3 mg PO BEDTIME PRN (Reason: Sleep) Print Language: Malaysian
[2024-08-21] MEDS: Morphine Sulfate 2 MG/ML CARTRIDGE 1 MG IVPUSH (00:49)
[2024-08-21] MEDS: Furosemide 40 MG/4 ML VIAL IVPUSH ×3 (00:50→18:17)
[2024-08-21] MEDS: Nitroglycerin 2 % Oint 1 GM Packet 0.5 INCH TRANSDERMA (00:50)
--- NOTE | 2024-08-21 01:11 | P.HPHOSP_ITS ---
History of Present Illness Date of Service: 08/21/24 Attending physician on admission: Jonah Serrano Chief Complaint: SOB, LE edema Pt is a 79 yo male with a pmhx significant for HFrEF (EF 58% 07/2024), p. afib on eliquis, CAD, hx renal cell carcinoma, CKD3, HLD, BPH, mood disorder, stage 1 COPD, and class 1 obesity, who presented to the ED due to SOB, orthopnea and LE edema x3 days. he reports chronic LE edema, for which he uses compression stocking. he denies any fever, chills, nausea, vomting, abd pain, diarrhea, or urinary sx. no chest pain, runny nose, sore throat or headache. he recently had a L shoulder fx and is s/p surgery and is still having pain, seeing PT. Review of Systems 2 Constitutional: Constitutional: Denies body ache(s), Denies chills, Reports fatigue, Denies fever(s) and Denies headache(s) Eyes: Eyes: Denies change in vision and Denies photophobia ENT: Denies headache(s), Denies nasal congestion, Denies nasal discharge and Denies sore throat Cardiovascular: Cardiovascular: Denies chest pain, Denies rapid heart rate, Reports leg edema, Denies lightheadedness and Reports dyspnea Respiratory: Respiratory: Denies chest congestion, Denies cough, Reports dyspnea and Denies wheezing Gastrointestinal: Gastrointestinal: Denies diarrhea, Denies nausea and Denies vomiting Genitourinary: Genitourinary: Denies dysuria and Denies urinary urgency Integumentary/Breasts: Skin/Breast: Denies rash Neurologic: Denies confusion and Denies headache(s) Psychiatric: Psychiatric: Denies confusion Endocrine: Endocrine: Reports fatigue Hematologic/Lymphatic: Hematologic/Lymphatic: Denies easy bleeding and Denies easy bruising Allergic/Immunologic: Allergic/Immunologic: Denies wheezing [facility] Medical History (Updated 08/21/24 @ 01:25 by Sharmaine Garsia PA-C) Paroxysmal atrial flutter Preoperative cardiovascular examination Coronary artery disease Hypersomnia Snoring Neuropathy Atherosclerotic cardiovascular disease History of alcohol abuse History of COVID-19 On beta jose at home COPD (chronic obstructive pulmonary disease) On anticoagulant therapy History of atrial fibrillation PVD (peripheral vascular disease) Renal cell carcinoma Hypertension Depression Anxiety Diverticulitis Functional capacity: independent ambulation Surgical History History of intestinal surgery History of kidney surgery H/O cardiac catheterization History of colectomy S/P femoral-femoral bypass surgery Social History Household Members: Significant Other Housing: House Are you a primary dog day care attendant to a significant other at home: No Do you presently have visiting nurse or other home services: No Alcohol intake: never Patient Tobacco Use Status: Former Tobacco user Tobacco use type: Cigarette Smoked in Last 30 Days: No Second Hand Smoke Exposure: No Use of substances other than those prescribed or required for medical reasons: No Substance Use Type: Marijuana Advance Directives: Yes Advance Directives on File: Yes Advance Directives Date on File: 06/09/21 Do you have a plan to hurt others: No Plan service: Yes Current occupational status: retired Current occupation: right hand dominant Narrative: no smoking, etoh or drug use Meds Allergies Allergy/AdvReac Type Severity Reaction Status Date / Time No Known Allergies Allergy Verified 08/20/24 20:28 [No Known Allergies*] Home Medications ?Medication ?Instructions ?Recorded ?Confirmed ?Last Taken ?Type docusate sodium 100 mg capsule 100 mg PO DAILY 08/17/21 07/15/24 07/11/24 History apixaban 5 mg tablet (Eliquis) 5 mg PO BID 01/27/22 07/15/24 07/11/24 History atorvastatin 80 mg tablet 80 mg PO DAILY 01/27/22 07/15/24 07/11/24 History sertraline 50 mg tablet 50 mg PO DAILY 07/06/22 07/15/24 07/11/24 History quetiapine 25 mg tablet 25 mg PO BID 12/28/22 07/15/24 07/11/24 History tamsulosin 0.4 mg capsule 0.4 mg PO DAILY 03/07/23 07/15/24 07/11/24 History cilostazol 50 mg tablet 50 mg PO BID 03/27/23 07/15/24 07/11/24 History clonazepam 0.5 mg tablet 0.5 mg PO BID Anxiety 11/15/23 07/15/24 07/11/24 History dextroamphetamine-amphetamine 7.5 1 tab PO DAILY 03/18/24 07/15/24 07/11/24 History mg tablet melatonin 3 mg capsule 3 mg PO BEDTIME PRN Sleep 04/12/24 07/15/24 Unknown History aspirin 81 mg tablet,delayed 81 mg PO DAILY 07/11/24 07/15/24 07/11/24 History release metoprolol tartrate 25 mg tablet 12.5 mg PO BID 07/11/24 07/15/24 07/11/24 History Physical Exam 2 Vital Signs and Narrative: Vital Signs: Last Vital Signs Temp 98.2 F 08/20/24 20:31 Pulse 70 08/20/24 22:00 Resp 16 08/20/24 22:00 BP 183/93 H 08/20/24 22:00 Pulse Ox 95 08/20/24 22:00 O2 Del Method Room Air 08/20/24 22:00 BMI result Body Mass Index 32.4 General: AOx3, no acute distress Resp: CTA bilaterally, no wheezing CVS: S1, S2, RRR GI: +BS, NT, no distention Skin: Warm, dry Neuro: Cranial nerves II-XII grossly intact bilaterally. Motor grossly intact bilaterally Extremities: 2+ pitting edema bilaterally Psych: Appropriate affect Const: General: No confusion Orientation/consciousness: No confusion Eyes: Direct Ophthalmoscopy: No photophobia Neuro: General: No confusion Results Labs 08/20/24 20:47 08/20/24 20:47 Labs: Laboratory Results - last 24 hr 08/20/24 20:47 MCV 93.3 MCH 31.0 MCHC 33.2 RDW 16.8 H Plt Count 268 MPV 9.8 Immature Gran % (Auto) 0.3 Neut % (Auto) 73.4 H Lymph % (Auto) 13.2 L Garvin % (Auto) 10.1 Eos % (Auto) 2.5 Baso % (Auto) 0.5 Lymph # (Auto) 1.0 L Garvin # (Auto) 0.8 Eos # (Auto) 0.2 Baso # (Auto) 0.0 Abs Immat Gran (auto) 0.02 Absolute Neuts (auto) 5.8 Absolute Nucleated RBC 0.000 Nucleated RBC % (auto) 0.0 PT 14.9 H INR 1.3 H Anion Gap 13 Estim Creat Clear Calc 47.3 Estimated GFR 39 Random Glucose 95 Calcium 8.7 Total Bilirubin 0.4 AST 28 ALT 18 Alkaline Phosphatase 104 B-Natriuretic Peptide 317 H Total Protein 6.3 L Albumin 3.7 Influenza Type A (PCR) NEGATIVE Influenza Type B (PCR) NEGATIVE RSV RNA Qual (PCR) NEGATIVE SARS-CoV-2 RNA (RT-PCR) NEGATIVE Assessment and Plan (1) Acute exacerbation of CHF (congestive heart failure): Status: Acute (2) Acute kidney injury superimposed on CKD: Status: Acute (3) Hypertension: Qualifiers: Hypertension type: unspecified Qualified Code(s): I10 - Essential (primary) hypertension Status: Acute (4) Class 1 obesity: Status: Acute Plan Pt is a 79 yo male with a pmhx significant for HFrEF (EF 58% 07/2024), p. afib on eliquis, CAD, hx renal cell carcinoma, CKD3, HLD, BPH, mood disorder, stage 1 COPD, and class 1 obesity, who presented to the ED due to SOB, orthopnea and LE edema x3 days. acute on chronic HFrEF exacerbation - WBC normal, vitals stable, lactic acid normal, no sepsis - CXR with small left pleural effusion with left basilar atelectasis/consolidation. Mild additional interstitial opacities as can be seen with recurrent edema and pneumonitis. - BNP 317 - EKG with sinus bradycardia - trop negative - no fever or infectious sx, no abx given - given lasix 40mg IV in ED, reevaluate in AM - recent echo this month with EF of 58% - monitor I's and O's - daily weights - monitor BMP CATALINO on CKD3 - Cr 1.71 - IV diuresis as above - monitor BMP HTN - BP elevated, 183/93, due to fluid overload - given lasix as above and nitropaste - monitor BP - continue home meds p afib - continue rate control and eliquis HLD/CAD - continue home meds mood disorder - continue home meds BPH - continue home meds stage 1 COPD - no acute exacerbation - albuterol PRN class 1 obesity - BMI 32.4 - weight loss encouraged full code VTE prophy: maribell pt with acute on chronic CHF exacerbation complicated by CATALINO on CKD requiring admission for at least 2 midnights stay for IV diuresis and monitoring. Quality Stroke Does the patient have a stroke diagnosis?: No VTE Prior VTE?: No VTE Risk Level:: Medical - moderate - high VTE Device Contraindication: Treatment Not Indicated VTE Drug Contraindication: N/A - Med Ordered
[2024-08-21] MEDS: oxyCODONE HCl Immed Release 5 MG TABLET PO ×3 (01:47→15:43)
--- NOTE | 2024-08-21 01:52 | PC.NURSE ---
pt medicated per MAR for L shoulder pain
[2024-08-21 03:59] LABS: Hematocrit 41.2 % (42.0-52.0); Hemoglobin 13.7 g/dl (14.0-18.0); Mean Corpuscular HGB Conc 33.3 g/dl (31.0-36.0); Mean Corpuscular Hemoglobin 30.7 pg (27.0-33.0); Mean Corpuscular Volume 92.4 fL (80.0-98.0); Mean Platelet Volume 9.5 fL (9.4-12.4); Platelet Count 290 X10*3/uL (160-400); Red Blood Count 4.46 X10*6/uL (4.60-5.80); Red Cell Distribution Width 16.7 % (11.0-16.0); White Blood Count 6.9 X10*3/uL (4.8-10.8)
[2024-08-21 04:18] LABS: Anion Gap 15 (12-20); Blood Urea Nitrogen 23 mg/dL (9-16); Calcium 8.8 mg/dL (8.4-10.2); Carbon Dioxide 24 mmol/L (22-29); Chloride 108 mmol/L (96-108); Creatinine Clr Calc Pharmacy 58.6; Estimated Glomerular Filt Rate 50; Glucose Random 90 mg/dL (60-115); Potassium 3.5 mmol/L (3.3-5.1); Sodium 143 mmol/L (135-145)
[2024-08-21] MEDS: Morphine Sulfate 2 MG/ML CARTRIDGE IVPUSH ×4 (05:53→19:27)
--- NOTE | 2024-08-21 06:01 | PC.NURSE ---
pt reports 910 shoulder pain, medicated per jun. Sharmaine YUN made aware of BP. pt unsure of meds taken at home.
[2024-08-21] MEDS: hydrALAZINE HCl 25 MG TABLET PO ×2 (06:43→20:45)
[2024-08-21] MEDS: Apixaban 5 MG TABLET PO ×2 (07:18→20:45)
[2024-08-21] MEDS: Losartan Potassium 50 MG TABLET PO (07:42)
[2024-08-21] MEDS: 0.9 % Sodium Chloride Flush 3 ML SYRINGE IVFLUSH ×2 (07:42→15:43)
[2024-08-21] MEDS: Dronedarone HCl 400 MG TABLET PO ×2 (07:42→20:43)
[2024-08-21] MEDS: Isosorbide Mononitrate 30 MG TAB.ER.24H PO (07:42)
--- NOTE | 2024-08-21 11:03 | HO.PM.IMPN ---
Subjective Subjective Date of Service: 08/21/24 Interval History: Shortness of breath and fatigue, chest pain with inhalation Physical Exam Vital Signs: Vital Signs: Last Vital Signs Temp 97.9 F 08/21/24 10:00 Pulse 69 08/21/24 10:00 Resp 18 08/21/24 10:00 BP 142/65 H 08/21/24 10:00 Pulse Ox 96 08/21/24 10:00 O2 Del Method Room Air 08/21/24 10:00 BMI result Body Mass Index 30.8 Mild rhonchi in left lower lobe otherwise clear to auscultation bilateral, alert and oriented x3 Objective Data Active Medications Acetaminophen (Acetaminophen 325 Mg Tablet) 975 mg PO Q6H PRN PRN Reason: Pain, Mild 1-3,fever,headache Apixaban (Apixaban 5 Mg Tablet) 5 mg PO BID [facility] Last Admin: 08/21/24 07:18 Dose: 5 mg Documented By: ANDRIY Calcium Carbonate (Calcium Carbonate 750 Mg Tab.Chew) 750 mg PO Q4H PRN PRN Reason: Heartburn Dronedarone (Dronedarone Hcl 400 Mg Tablet) 400 mg PO BID [facility] Last Admin: 08/21/24 07:42 Dose: 400 mg Documented By: JASON Furosemide (Furosemide 40 Mg/4 Ml Vial) 40 mg IVPUSH BID@0900,1800 [facility]; Protocol Last Admin: 08/21/24 07:42 Dose: 40 mg Documented By: JASON Hydralazine HCl (Hydralazine Hcl 25 Mg Tablet) 25 mg PO BID [facility]; Protocol Isosorbide Mononitrate (Isosorbide Mononitrate 30 Mg Tab.Er.24h) 30 mg PO DAILY [facility]; Protocol Last Admin: 08/21/24 07:42 Dose: 30 mg Documented By: JASON Losartan Potassium (Losartan Potassium 50 Mg Tablet) 50 mg PO DAILY [facility]; Protocol Last Admin: 08/21/24 07:42 Dose: 50 mg Documented By: JASON Magnesium Hydroxide (Milk Of Magnesia 30 Ml Oral.Susp) 30 ml PO DAILY PRN PRN Reason: Constipation Melatonin (Melatonin 3 Mg Tablet) 6 mg PO BEDTIME PRN PRN Reason: Insomnia Morphine Sulfate (Morphine Sulfate 2 Mg/Ml Cartridge) 2 mg IVPUSH Q4H PRN; Protocol PRN Reason: Pain, Severe (Pain Scale 7-10) Last Admin: 08/21/24 10:18 Dose: 2 mg Documented By: JASON Ondansetron HCl (Ondansetron Hcl 4 Mg/2 Ml Vial) 4 mg IVPUSH Q8H PRN PRN Reason: Nausea and Vomiting Oxycodone HCl (Oxycodone Hcl Immed Release 5 Mg Tablet) 5 mg PO Q6H PRN PRN Reason: Pain, Moderate(Pain Scale 4-6) Last Admin: 08/21/24 07:18 Dose: 5 mg Documented By: ANDRIY Sodium Chloride (0.9 % Sodium Chloride Flush 3 Ml Syringe) 3 ml IVFLUSH QSHIFT [facility] Last Admin: 08/21/24 07:42 Dose: 3 ml Documented By: JASON Labs 08/21/24 03:47 08/21/24 03:47 Labs: Laboratory Results - last 24 hr 08/20/24 08/21/24 20:47 03:47 MCV 93.3 92.4 MCH 31.0 30.7 MCHC 33.2 33.3 RDW 16.8 H 16.7 H Plt Count 268 290 MPV 9.8 9.5 Immature Gran % (Auto) 0.3 Neut % (Auto) 73.4 H Lymph % (Auto) 13.2 L Graves % (Auto) 10.1 Eos % (Auto) 2.5 Baso % (Auto) 0.5 Lymph # (Auto) 1.0 L Graves # (Auto) 0.8 Eos # (Auto) 0.2 Baso # (Auto) 0.0 Abs Immat Gran (auto) 0.02 Absolute Neuts (auto) 5.8 Absolute Nucleated RBC 0.000 0.000 Nucleated RBC % (auto) 0.0 0.0 PT 14.9 H INR 1.3 H Anion Gap 13 15 Estim Creat Clear Calc 47.3 58.6 Estimated GFR 39 50 Random Glucose 95 90 Calcium 8.7 8.8 Total Bilirubin 0.4 AST 28 ALT 18 Alkaline Phosphatase 104 B-Natriuretic Peptide 317 H Total Protein 6.3 L Albumin 3.7 Influenza Type A (PCR) NEGATIVE Influenza Type B (PCR) NEGATIVE RSV RNA Qual (PCR) NEGATIVE SARS-CoV-2 RNA (RT-PCR) NEGATIVE Assessment and Plan (1) CHF (congestive heart failure): Status: Acute Plan 79M PMH chronic diastolic CHF, paroxysmal AFib on Eliquis, coronary artery disease, history of renal cell carcinoma, CKD 3, hyperlipidemia, BPH, mood disorder, COPD presented with shortness of breath and edema Dyspnea Likely multifactorial Acute on chronic diastolic CHF Continue IV Lasix, monitor electrolytes Given recent surgery rule out PE, check D-dimer Coronary artery disease Continue apixaban, statin Follow up troponin Paroxysmal AFib Apixaban, Multaq Acute kidney injury on CKD 3 Improved with diuresis, monitor DVT prophylaxis on apixaban Full code reason for continued hospitalization:sob Quality Stroke Does the patient have a stroke diagnosis?: No VTE Prior VTE?: No VTE Risk Level:: Medical - moderate - high VTE Device Contraindication: Treatment Not Indicated VTE Drug Contraindication: N/A - Med Ordered
[2024-08-21 11:07] LABS: D Dimer High Sensitivity 353 NG/ML
[2024-08-21 11:20] LABS: Troponin-I High Sensitivity 22.4 ng/L (<3.5-35.0)
--- NOTE | 2024-08-21 12:16 | MHC.CM.PN ---
PT LIVES WITH S/O HE IS REQUESTING A VNA HAS OWN RIDE HOME DC PLAN HOME W/VNA
--- NOTE | 2024-08-21 14:24 | PHA.MEDREC ---
Addendum entered by Tadeo Saldana RPh 08/21/24 14:51: Per Ame, pt is no longer taking rivastigmine due to excessive drowsiness. Per patient, he takes 300 mg of gabapentin at bedtime. Med rec was reviewed by [facility]. Original Note: Pharmacy Consult ? Medication Reconciliation Pharmacy has completed the medication reconciliation. Spoke with patient and he was a poor historian with his medications. Patient stated his S/O Ame could help and that she was going to be in around noon, I called and left her a voicemail @[phone]. We went to speak with patients S/O at bedside and she was also a poor historian and did not grab the list from home but stated he has been in and out off the hospital and everything should be up to date . I confirmed what I could with the patient and his S/O and confirmed the rest of the med rec with claims and DC packet from 07/13/24. Patient was not sure the last time he took his medications at this time.
[2024-08-21] MEDS: Gabapentin 300 MG CAPSULE PO (20:43)
[2024-08-21] MEDS: clonazePAM 0.5 MG TABLET PO (20:43)
[2024-08-21] MEDS: QUEtiapine Fumarate 25 MG TABLET PO (20:44)
[2024-08-21] MEDS: cilostazoL 50 MG TABLET PO (20:44)
[2024-08-22] VITALS (16 sets, daily range): BP systolic 70–138; BP diastolic 40–65; PULSE 61–93; RESP 16–20; TEMP 36.3–36.9; O2SAT 90–94
--- NOTE | 2024-08-22 | ECG_ITS ---
Test Reason : tachy Blood Pressure : */* mmHG Vent. Rate : 87 BPM Atrial Rate : 87 BPM P-R Int : 200 ms QRS Dur : 74 ms QT Int : 416 ms P-R-T Axes : 95 -15 42 degrees QTcB Int : 500 ms Sinus rhythm with Premature atrial complexes Septal infarct , age undetermined Prolonged QT Abnormal ECG When compared to the previous EKG of 20 aug 2024, QT has lengthened Referred By: Liban Kraft Electronically Signed By: ALYSHA BEE
[2024-08-22] MEDS: 0.9 % Sodium Chloride Flush 3 ML SYRINGE IVFLUSH ×2 (05:26→08:40)
[2024-08-22] MEDS: Morphine Sulfate 2 MG/ML CARTRIDGE IVPUSH (05:32)
[2024-08-22 05:39] LABS: Hemoglobin 14.6 g/dl (14.0-18.0); Mean Corpuscular HGB Conc 33.2 g/dl (31.0-36.0); Mean Corpuscular Hemoglobin 30.8 pg (27.0-33.0); Mean Corpuscular Volume 92.8 fL (80.0-98.0); Mean Platelet Volume 9.4 fL (9.4-12.4); Platelet Count 318 X10*3/uL (160-400); Red Blood Count 4.74 X10*6/uL (4.60-5.80); Red Cell Distribution Width 16.9 % (11.0-16.0); White Blood Count 7.9 X10*3/uL (4.8-10.8)
[2024-08-22 05:56] LABS: Anion Gap 14 (12-20); Blood Urea Nitrogen 20 mg/dL (9-16); Calcium 9.4 mg/dL (8.4-10.2); Carbon Dioxide 24 mmol/L (22-29); Chloride 106 mmol/L (96-108); Creatinine Clr Calc Pharmacy 61.7; Estimated Glomerular Filt Rate 54; Glucose Random 100 mg/dL (60-115); Magnesium 2.4 mg/dL (1.6-2.6); Potassium 3.6 mmol/L (3.3-5.1); Sodium 140 mmol/L (135-145)
[2024-08-22] MEDS: hydrALAZINE HCl 25 MG TABLET PO (08:34)
[2024-08-22] MEDS: Tamsulosin HCL 0.4 MG CAPSULE PO (08:34)
[2024-08-22] MEDS: cilostazoL 50 MG TABLET PO (08:35)
[2024-08-22] MEDS: Isosorbide Mononitrate 30 MG TAB.ER.24H PO (08:35)
[2024-08-22] MEDS: Losartan Potassium 50 MG TABLET PO (08:35)
[2024-08-22] MEDS: Dronedarone HCl 400 MG TABLET PO (08:35)
[2024-08-22] MEDS: Atorvastatin Calcium 80 MG TABLET PO (08:36)
[2024-08-22] MEDS: Apixaban 5 MG TABLET PO ×2 (08:36→22:00)
[2024-08-22] MEDS: Sertraline HCL 50 MG TABLET PO (08:36)
[2024-08-22] MEDS: Aspirin Enteric Coated 81 MG TABLET.DR PO (08:36)
[2024-08-22] MEDS: QUEtiapine Fumarate 25 MG TABLET PO (08:36)
[2024-08-22] MEDS: Docusate Sodium 100 MG CAPSULE PO (08:37)
[2024-08-22] MEDS: clonazePAM 0.5 MG TABLET PO (08:37)
[2024-08-22] MEDS: Amphetamine Mixed Salts 10 MG TABLET 7.5 MG PO (08:46)
[2024-08-22] MEDS: oxyCODONE HCl Immed Release 5 MG TABLET PO (09:29)
--- NOTE | 2024-08-22 09:52 | P.DS_ITS ---
DS: Providers Provider Date of Service: 08/23/24 Date of admission: 08/21/24 00:48 Date of discharge: 08/23/24 Primary care physician: Sesar Pereyra MD DS: Diagnosis Discharge Diagnosis (1) CHF (congestive heart failure): Status: Acute DS: Summary Hospital Course Hospital Course: from initial hpi: 79 yo male with a pmhx significant for HFpEF (EF 58% 07/2024), p. afib on eliquis, CAD, hx renal cell carcinoma, CKD3, HLD, BPH, mood disorder, stage 1 COPD, and class 1 obesity, who presented to the ED due to SOB, orthopnea and LE edema x3 days. he reports chronic LE edema, for which he uses compression stocking. he denies any fever, chills, nausea, vomting, abd pain, diarrhea, or urinary sx. no chest pain, runny nose, sore throat or headache. he recently had a L shoulder fx and is s/p surgery and is still having pain, seeing PT. hospital course: Patient was admitted for dyspnea likely multifactorial due to acute on chronic diastolic CHF, decreased respiratory effort from shoulder pain, hypertensive urgency. Was treated with IV Lasix, had negative troponin and D-dimer. Symptoms significantly improved. For uncontrolled hypertension was continued on hydralazine, metoprolol losartan and Imdur were added with improved control, but then prior to discharge became hypotensive, losartan and imdur then discontinued, given ivf fluids and bp normalized on discharge will go back to previous bp meds and monitor closely. For paroxysmal atrial fibrillation was continued on apixaban and Multaq. Acute kidney injury on CKD 3 initially improved with diuresis but then reinjured after hypotensive episode, will repeat labs in 1 week. For coronary disease continued on apixaban and statin. Patient is feeling better, ambulated 400 feet without dizzyness or drop in BP. will be discharged home. Time Attestation Discharge Coordination Time (in mins): 32 Quality: Safe Use of Opioids Does Pt have an Active Cancer Diagnosis on the Problem List?: No Quality: Stroke Does the patient have a stroke diagnosis?: No Physical Exam Vital Signs: Vital Signs: Last Vital Signs Temp 97.3 F 08/22/24 07:51 Pulse 61 08/22/24 07:51 Resp 18 08/22/24 07:51 BP 138/65 08/22/24 07:51 Pulse Ox 90 L 08/22/24 07:51 O2 Del Method Room Air 08/22/24 07:51 BMI result Body Mass Index 30.8 General: AO X 3, no acute distress Resp: CTA bilateral, no accessory muscles used CVS: S1,S2,RRR GI: soft, non tender, non distended Neuro: motor grossly intact, alert Psych: appropriate affect, appropriate insight DS: Data Data Completed and Pending Completed studies during hospitalization [Text1]: Procedures Introduction of Anesthetic Agent into Peripheral Nerves and Plexi, Percutaneous Approach (06/19/24) Reattachment of Left Shoulder Tendon, Percutaneous Endoscopic Approach (06/19/24) Reposition Left Shoulder Joint, External Approach (06/19/24) Labs on day of discharge: Laboratory Results - last 24 hr 08/21/24 08/22/24 10:37 05:27 WBC 7.9 RBC 4.74 Hgb 14.6 Hct 44.0 MCV 92.8 MCH 30.8 MCHC 33.2 RDW 16.9 H Plt Count 318 MPV 9.4 Absolute Nucleated RBC 0.000 Nucleated RBC % (auto) 0.0 D-Dimer High Sensitivty 353 Sodium 140 Potassium 3.6 Chloride 106 Carbon Dioxide 24 Anion Gap 14 BUN 20 H Creatinine 1.28 Estim Creat Clear Calc 61.7 Estimated GFR 54 Random Glucose 100 Calcium 9.4 D Magnesium 2.4 Troponin I High Sens 22.4 D Discharge Plan Discharge Anticipated Discharge Date/Time: 08/22/24 09:48 Patient Disposition: Home, Self-Care Discharge Diagnosis: chf Referrals: Sesar Pereyra MD [Primary Care Provider] - 1 Week Discharge Medications: Continued cilostazol 50 mg tablet 50 mg PO BID furosemide 40 mg tablet 40 mg PO DAILY Qty: 90 3RF oxycodone 5 mg tablet 5 mg PO Q8H PRN (Reason: pain) Qty: 21 0RF Rx Instructions: Partial Fill upon patient request. atorvastatin 80 mg tablet 80 mg PO DAILY Eliquis 5 mg tablet 5 mg PO BID sertraline 50 mg tablet 50 mg PO DAILY polyethylene glycol 3350 17 gram Powder In Packet 17 g PO BEDTIME 30 Days Qty: 30 0RF gabapentin 100 mg capsule 300 mg PO BEDTIME dextroamphetamine-amphetamine 7.5 mg tablet 1 tab PO DAILY Multaq 400 mg Tablet 400 mg PO BID Qty: 180 0RF aspirin 81 mg tablet,delayed release (DR/EC) 81 mg PO DAILY metoprolol tartrate 25 mg tablet 12.5 mg PO BID albuterol sulfate [Ventolin HFA] 90 mcg/actuation Hfa Aerosol Inhaler 2 puff inhalation RQ4H PRN (Reason: sob) Qty: 1 0RF docusate sodium 100 mg capsule 100 mg PO DAILY quetiapine 25 mg tablet 25 mg PO BID clonazepam 0.5 mg tablet 0.5 mg PO BID hydralazine 25 mg tablet 25 mg PO BID 30 Days Qty: 60 4RF Rx Instructions: New med for BP celecoxib [Celebrex] 200 mg capsule 200 mg PO DAILY Qty: 30 1RF tamsulosin 0.4 mg capsule 0.4 mg PO DAILY melatonin 3 mg capsule 3 mg PO BEDTIME PRN (Reason: Sleep) Discharge Orders: Discharge Order (Routine); Ordered 08/23/24 Ordered By: Liban Kraft Diet: Advance to usual diet Activity on Discharge: As tolerated Stand Alone Forms: Patient Portal Discharge page Print Language: American Other Ambulatory Orders: Basic Metabolic Panel (Routine) Timeframe: 1 Week Facility: [facility] - Location: Laboratory Ordered By: Libna Kraft Care Plan Goals: recovery Health Concerns: chf, high and low blood pressure, acute kidney injury Plan of Treatment: continue previous bp meds, monitor blood pressures follow up labs in 1 week Assessment: see above
--- NOTE | 2024-08-22 10:29 | W.MHC.F2F ---
Service Date Service Date: 08/23/24 Encounter Date of encounter: 08/23/24 Reasons for Services Signs and symptoms assessed: sob on exertion, left shoulder pain Reason for physical therapy: home safety and mobility, therapeutic exercises and restore joint function Homebound: Leaving the home is medically contraindicated at this time without the asist of a device and/or another person due th the listed conditions above and below. Reason homebound: shortness of breath with minimal effort Certification: Based on the above findings, I certify that this patient is confined to the home and needs intermittent residential care, physical therapy and/or speech therapy, or continues to need occupational therapy. The patient is under my care, and I have initiated the establishment of the plan of care. The patient will be followed by a physician who will periodically review the plan of care. Time Spent With Patient Time: Total time managing care of this patient today ____ minutes.
--- NOTE | 2024-08-22 11:22 | PC.NURSE ---
Entered patient room at approx 1045. Pt agreed to ambulate with this RN because he was due to be discharged this afternoon. Pt ambulated independently alongside this RN with steady gait throughout unit with no c/o weakness, SOB, or visible difficulty with ambulation. Pt brought back to bed and told this RN do not turn the bed alarm back on I want to be able to stand at side of bed. This RN educated patient on pt safety and needing assistance OOB. Pt verbalized understanding and once again stated he did not want the bed alarm back on. RN left the room at approx 1100.
[2024-08-22 11:40] LABS: Glucose, Whole Blood 135 mg/dL (60-115)
--- NOTE | 2024-08-22 12:12 | MHC.CM.PN ---
[facility] following along. Currently awaiting PT eval for their review of services. CM following
[2024-08-22] MEDS: 0.9 % Sodium Chloride 500 ML 999 ML IV (12:46)
--- NOTE | 2024-08-22 13:06 | MHC.CM.PN ---
CALL FROM PATIENT'S S.OFatemeh ALVAREZ ([phone]) WHO STATES THAT PATIENT USES THE SERVICES OF [facility] REFERRAL PLACED FOR AGENCY TO FOLLOW. OF THIS NOTE, PATIENT WILL NOT DC TODAY. DC HAS BEEN CANCELLED. [facility]The [facility]SPR[facility]A [facility].
--- NOTE | 2024-08-22 13:18 | HO.PM.IMPN ---
Subjective Subjective Date of Service: 08/22/24 Interval History: planned for dc today, but was hypotiensive and dizzy, sbp in 70s Physical Exam Vital Signs: Vital Signs: Last Vital Signs Temp 97.7 F 08/22/24 11:41 Pulse 82 08/22/24 11:41 Resp 16 08/22/24 11:41 BP 70/58 L 08/22/24 12:48 Pulse Ox 94 08/22/24 11:41 O2 Del Method Room Air 08/22/24 10:00 BMI result Body Mass Index 30.8 General: AO X 3, no acute distress Resp: CTA bilateral, no accessory muscles used CVS: S1,S2,RRR GI: soft, non tender, non distended Neuro: motor grossly intact, alert Psych: appropriate affect, appropriate insight Objective Data Active Medications Acetaminophen (Acetaminophen 325 Mg Tablet) 975 mg PO Q6H PRN PRN Reason: Pain, Mild 1-3,fever,headache Albuterol Sulfate (Albuterol Sulfate 90 Mcg 8 Gm Inhaler) 2 puff INHALE RQ4H PRN PRN Reason: sob Amphetamine/Dextroamphetamine (Amphetamine Mixed Salts 10 Mg Tablet) 7.5 mg PO DAILY [facility] Last Admin: 08/22/24 08:46 Dose: 7.5 mg Documented By: SAMANTHA Apixaban (Apixaban 5 Mg Tablet) 5 mg PO BID [facility] Last Admin: 08/22/24 08:36 Dose: 5 mg Documented By: SAMANTHA Aspirin (Aspirin Enteric Coated 81 Mg Tablet.) 81 mg PO DAILY [facility] Last Admin: 08/22/24 08:36 Dose: 81 mg Documented By: SAMANTHA Atorvastatin Calcium (Atorvastatin Calcium 80 Mg Tablet) 80 mg PO DAILY [facility] Last Admin: 08/22/24 08:36 Dose: 80 mg Documented By: SAMANTHA Calcium Carbonate (Calcium Carbonate 750 Mg Tab.Chew) 750 mg PO Q4H PRN PRN Reason: Heartburn Cilostazol (Cilostazol 50 Mg Tablet) 50 mg PO BID [facility] Last Admin: 08/22/24 08:35 Dose: 50 mg Documented By: SAMANTHA Clonazepam (Clonazepam 0.5 Mg Tablet) 0.5 mg PO BID [facility] Last Admin: 08/22/24 08:37 Dose: 0.5 mg Documented By: SAMANTHA Docusate Sodium (Docusate Sodium 100 Mg Capsule) 100 mg PO DAILY [facility] Last Admin: 08/22/24 08:37 Dose: 100 mg Documented By: SAMANTHA Dronedarone (Dronedarone Hcl 400 Mg Tablet) 400 mg PO BID [facility] Last Admin: 08/22/24 08:35 Dose: 400 mg Documented By: SAMANTHA Gabapentin (Gabapentin 300 Mg Capsule) 300 mg PO BEDTIME [facility] Last Admin: 08/21/24 20:43 Dose: 300 mg Documented By: JOHAN Hydralazine HCl (Hydralazine Hcl 25 Mg Tablet) 25 mg PO BID [facility]; Protocol Last Admin: 08/22/24 08:34 Dose: 25 mg Documented By: SAMANTHA Albumin Human (Kedbumin 25 %) 50 mls @ 100 mls/hr IV ONCE ONE Stop: 08/22/24 13:45 Magnesium Hydroxide (Milk Of Magnesia 30 Ml Oral.Susp) 30 ml PO DAILY PRN PRN Reason: Constipation Melatonin (Melatonin 3 Mg Tablet) 6 mg PO BEDTIME PRN PRN Reason: Insomnia Metoprolol Tartrate (Metoprolol Tartrate 12.5 Mg Halftab) 12.5 mg PO BID [facility]; Protocol Last Admin: 08/22/24 08:39 Dose: Not Given Documented By: SAMANTHA Non-Admin Reason: Decreased Heart Rate Morphine Sulfate (Morphine Sulfate 2 Mg/Ml Cartridge) 2 mg IVPUSH Q4H PRN; Protocol PRN Reason: Pain, Severe (Pain Scale 7-10) Last Admin: 08/22/24 05:32 Dose: 2 mg Documented By: JOHAN Ondansetron HCl (Ondansetron Hcl 4 Mg/2 Ml Vial) 4 mg IVPUSH Q8H PRN PRN Reason: Nausea and Vomiting Oxycodone HCl (Oxycodone Hcl Immed Release 5 Mg Tablet) 5 mg PO Q6H PRN PRN Reason: Pain, Moderate(Pain Scale 4-6) Last Admin: 08/22/24 09:29 Dose: 5 mg Documented By: SAMANTHA Quetiapine Fumarate (Quetiapine Fumarate 25 Mg Tablet) 25 mg PO BID [facility] Last Admin: 08/22/24 08:36 Dose: 25 mg Documented By: SAMANTHA Sertraline HCl (Sertraline Hcl 50 Mg Tablet) 50 mg PO DAILY [facility] Last Admin: 08/22/24 08:36 Dose: 50 mg Documented By: SAMANTHA Sodium Chloride (0.9 % Sodium Chloride Flush 3 Ml Syringe) 3 ml IVFLUSH QSHIFT [facility] Last Admin: 08/22/24 08:40 Dose: 3 ml Documented By: SAMANTHA Tamsulosin HCl (Tamsulosin Hcl 0.4 Mg Capsule) 0.4 mg PO DAILY [facility] Last Admin: 08/22/24 08:34 Dose: 0.4 mg Documented By: SAMANTHA Labs 08/22/24 05:27 08/22/24 05:27 Labs: Laboratory Results - last 24 hr 08/22/24 08/22/24 05:27 11:37 MCV 92.8 MCH 30.8 MCHC 33.2 RDW 16.9 H Plt Count 318 MPV 9.4 Absolute Nucleated RBC 0.000 Nucleated RBC % (auto) 0.0 Anion Gap 14 Estim Creat Clear Calc 61.7 Estimated GFR 54 POC Glucose 135 H Random Glucose 100 Calcium 9.4 D Magnesium 2.4 Assessment and Plan (1) CHF (congestive heart failure): Status: Acute Plan 79M PMH chronic diastolic CHF, paroxysmal AFib on Eliquis, coronary artery disease, history of renal cell carcinoma, CKD 3, hyperlipidemia, BPH, mood disorder, COPD presented with shortness of breath and edema Dyspnea Likely multifactorial Acute on chronic diastolic CHF diuresed well, holding lasix ddimer and trop negative hypertensive urgency, now hyotensive hypotension due to meds not sepsis hold bp meds, will give ivf, albumin Coronary artery disease Continue apixaban, statin Paroxysmal AFib Apixaban, Multaq Acute kidney injury on CKD 3 Improved with diuresis, monitor DVT prophylaxis on apixaban Full code reason for continued hospitalization:hypotensive Quality Stroke Does the patient have a stroke diagnosis?: No VTE Prior VTE?: No VTE Risk Level:: Medical - moderate - high VTE Device Contraindication: Treatment Not Indicated VTE Drug Contraindication: N/A - Med Ordered
[2024-08-22] MEDS: Albumin Human 25 % 50 ML 100 ML IV (13:31)
[2024-08-22] MEDS: Midodrine HCl 5 MG TABLET PO ×2 (14:34→19:14)
[2024-08-22 17:46] LABS: Lactic Acid 2.4 mmol/L (0.5-2.0)
[2024-08-22 17:46] LABS: Troponin-I High Sensitivity 38.9 ng/L (<3.5-35.0)
[2024-08-22 18:05] LABS: Anion Gap 15 (12-20); Blood Urea Nitrogen 26 mg/dL (9-16); Carbon Dioxide 20 mmol/L (22-29); Chloride 107 mmol/L (96-108); Creatinine Clr Calc Pharmacy 40.9; Estimated Glomerular Filt Rate 34; Glucose Random 115 mg/dL (60-115); Magnesium 2.4 mg/dL (1.6-2.6); Potassium 4.3 mmol/L (3.3-5.1); Sodium 138 mmol/L (135-145)
[2024-08-22 18:55] LABS: Hematocrit 43.2 % (42.0-52.0); Hemoglobin 14.2 g/dl (14.0-18.0); Mean Corpuscular HGB Conc 32.9 g/dl (31.0-36.0); Mean Corpuscular Hemoglobin 30.5 pg (27.0-33.0); Mean Corpuscular Volume 92.9 fL (80.0-98.0); Mean Platelet Volume 9.5 fL (9.4-12.4); Platelet Count 356 X10*3/uL (160-400); Red Blood Count 4.65 X10*6/uL (4.60-5.80); White Blood Count 13.3 X10*3/uL (4.8-10.8)
[2024-08-22 19:03] LABS: Cancel Lactic Acid Canceled
[2024-08-22 19:20] LABS: Reflex Lactate? Lactic Acid Added
[2024-08-22] MEDS: 0.9 % Sodium Chloride 1,000 ML 999 ML IV (19:33)
[2024-08-22] MEDS: Albumin Human 25 % 100 ML 133.33 ML IV ×2 (20:56→21:56)
[2024-08-22 21:27] LABS: ~Lactic Acid-LAB USE ONLY 1.5 mmol/L (0.5-2.0)
[2024-08-23 01:55] VITALS: BP 126/60; PULSE 67; RESP 18; TEMP 36.8; O2SAT 93
[2024-08-23 03:17] VITALS: BP 136/61; PULSE 57; RESP 18; TEMP 37.1; O2SAT 92
[2024-08-23] MEDS: 0.9 % Sodium Chloride Flush 3 ML SYRINGE IVFLUSH ×2 (05:23→08:22)
[2024-08-23 07:17] LABS: Anion Gap 13 (12-20); Blood Urea Nitrogen 30 mg/dL (9-16); Calcium 8.9 mg/dL (8.4-10.2); Carbon Dioxide 23 mmol/L (22-29); Chloride 108 mmol/L (96-108); Creatinine Clr Calc Pharmacy 41.8; Estimated Glomerular Filt Rate 35; Glucose Random 92 mg/dL (60-115); Potassium 3.5 mmol/L (3.3-5.1); Sodium 140 mmol/L (135-145)
[2024-08-23 07:20] VITALS: BP 142/64; PULSE 63; RESP 16; TEMP 37; O2SAT 94
[2024-08-23 07:20] LABS: Hematocrit 38.4 % (42.0-52.0); Hemoglobin 12.7 g/dl (14.0-18.0); Mean Corpuscular HGB Conc 33.1 g/dl (31.0-36.0); Mean Corpuscular Hemoglobin 30.9 pg (27.0-33.0); Mean Corpuscular Volume 93.4 fL (80.0-98.0); Mean Platelet Volume 9.5 fL (9.4-12.4); Platelet Count 287 X10*3/uL (160-400); Red Blood Count 4.11 X10*6/uL (4.60-5.80); Red Cell Distribution Width 16.7 % (11.0-16.0); White Blood Count 9.3 X10*3/uL (4.8-10.8)
[2024-08-23 07:40] VITALS: BP 142/64; PULSE 63; O2SAT 94
[2024-08-23] MEDS: clonazePAM 0.5 MG TABLET PO (08:21)
[2024-08-23] MEDS: Atorvastatin Calcium 80 MG TABLET PO (08:21)
[2024-08-23] MEDS: Docusate Sodium 100 MG CAPSULE PO (08:22)
[2024-08-23] MEDS: Apixaban 5 MG TABLET PO (08:22)
[2024-08-23] MEDS: Aspirin Enteric Coated 81 MG TABLET.DR PO (08:22)
[2024-08-23] MEDS: oxyCODONE HCl Immed Release 5 MG TABLET PO (08:22)
[2024-08-23] MEDS: Tamsulosin HCL 0.4 MG CAPSULE PO (08:22)
[2024-08-23] MEDS: cilostazoL 50 MG TABLET PO (08:28)
[2024-08-23] MEDS: Dronedarone HCl 400 MG TABLET PO (08:28)
--- NOTE | 2024-08-23 10:31 | MHC.CM.PN ---
[facility] has been medically [facility] Last IMM was addressed on 08/21/2024.
[2024-08-23 10:46] VITALS: BP 136/65; PULSE 66; RESP 16; TEMP 37; O2SAT 93
== END 2024-08-23 13:45 | disposition home health service (06) | DRG 291 ==
LOC: HO.ED 08-21 00:36 → HO.EDOVER 08-21 00:54 → HO.S3 08-21 06:37 → HO.IMC 08-22 16:24
PROVIDERS: Admitting Provider Physician Assistant; Emergency Provider Emergency Medicine; PCP Internal Medicine; Visit Provider Internal Medicine
DX: I13.0 Hypertensive heart and chronic kidney disease with heart failure and stage 1 through stage 4 chronic kidney disease, or unspecified chronic kidney disease (principal); I50.23 Acute on chronic systolic (congestive) heart failure; N17.9 Acute kidney failure, unspecified; I48.0 Paroxysmal atrial fibrillation; E66.811 Obesity, class 1; Z71.3 Dietary counseling and surveillance; I16.0 Hypertensive urgency; Z68.30 Body mass index [BMI] 30.0-30.9, adult; I95.2 Hypotension due to drugs; E78.5 Hyperlipidemia, unspecified; N40.0 Benign prostatic hyperplasia without lower urinary tract symptoms; N18.30 Chronic kidney disease, stage 3 unspecified; J44.9 Chronic obstructive pulmonary disease, unspecified; I25.10 Atherosclerotic heart disease of native coronary artery without angina pectoris; Z20.822 Contact with and (suspected) exposure to COVID-19; Z85.528 Personal history of other malignant neoplasm of kidney; Z87.891 Personal history of nicotine dependence; Z79.01 Long term (current) use of anticoagulants; Z79.82 Long term (current) use of aspirin; Z79.899 Other long term (current) drug therapy
CPT/HCPCS: 0241U; 36415; 71045; 80048; 80053; 82947; 83605; 83735; 83880; 84484; 85025; 85027; 85379; 85610; 93005; 97162; 99285; J1938; J2270; P9047

== ENCOUNTER → 2024-08-20 20:38 | Outpatient (BNV) | payer MEDICARE, MEDICAID, SELFPAY | PROVIDERS: Admitting Provider Physician Assistant; Emergency Provider Emergency Medicine; PCP Internal Medicine; Visit Provider Internal Medicine | DX: R00.1 Bradycardia, unspecified (principal); I25.2 Old myocardial infarction | CPT/HCPCS: 93010 ==

== ENCOUNTER → 2024-08-20 20:55 | Outpatient (BNV) | payer MEDICARE, MEDICAID, SELFPAY | PROVIDERS: PCP Internal Medicine; Visit Provider Radiology Neuroradiology | DX: J90 Pleural effusion, not elsewhere classified (principal); R91.8 Other nonspecific abnormal finding of lung field | CPT/HCPCS: 71045 ==

== ENCOUNTER → 2024-08-21 00:48 | Outpatient (BNV) | payer MEDICARE, MEDICAID, SELFPAY | PROVIDERS: Admitting Provider Physician Assistant; Emergency Provider Emergency Medicine; PCP Internal Medicine; Visit Provider Internal Medicine | DX: I50.9 Heart failure, unspecified (principal); N17.9 Acute kidney failure, unspecified; I12.9 Hypertensive chronic kidney disease with stage 1 through stage 4 chronic kidney disease, or unspecified chronic kidney disease; N18.9 Chronic kidney disease, unspecified; E66.811 Obesity, class 1 | CPT/HCPCS: 99223; 99233; 99239; 99499; G0180 ==

== ENCOUNTER 2024-08-26 12:11 | Inpatient (IN) | payer MEDICARE, OTHER, SELFPAY ==
--- NOTE | ~2024-08-26 | XR_ITS ---
EXAMINATION: XR CHEST CLINICAL INFORMATION: fever COMPARISON: 08/20/2024, 08/01/2024. TECHNIQUE: 2 views of the chest were obtained. FINDINGS: The cardiac, hilar, and mediastinal contours are normal. There is mild pulmonary hyperaeration. There is flattening of the hemidiaphragms. There is patchy opacity in the left lower lobe distribution. There is suggestion of peribronchial thickening in both lower lobes. There is no pneumothorax or pleural effusion. There is no focal osseous or soft tissue abnormality. XR/XR chest 2V IMPRESSION: Left lower lobe pneumonia. No definite effusions. Suggestion of peribronchial thickening in both lower lobes left greater than right. Likely underlying COPD. Electronically signed by: Jaquan Guillen MD 08/26/2024 12:48 PM EDT
--- NOTE | ~2024-08-26 | XR_ITS ---
CLINICAL HISTORY: left shoulder pain 3 view left shoulder Comparison: X-rays of the left shoulder from 06/19/2024 and 08/01/2024 Findings: Small old Hill-Sachs deformity of the humerus redemonstrated. Deformity of the glenoid appears old/chronic. [id number] osteoarthritis of the left glenohumeral joint without acute displaced fracture or dislocation. 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 Redemonstration of the mottled appearance of the bone concerning for marrow abnormality or metabolic disorder. Atelectasis again noted in the [id number]. IMPRESSION: 1. No acute fracture or dislocation. 2. [id number] osteoarthritis of the left glenohumeral joint and severe osteoarthritis of the left AC joint. 3. Lucencies and mottled appearance again noted concerning for marrow abnormality, as noted in the comparison study. This document has been electronically signed by: Franko Rutherford MD on 08/26/2024 22:47:34
[2024-08-26 12:15] VITALS: BP 136/68; PULSE 89; RESP 18; TEMP 37.2; O2SAT 95; BMI 31.5
--- NOTE | 2024-08-26 12:23 | PC.NURSE ---
brother misa [phone]
--- NOTE | 2024-08-26 12:24 | ED_ITS ---
HPI - General Adult General Chief complaint: General Medical Stated complaint: Fever Time Seen by Provider: 08/26/24 16:31 Source: patient, RN notes reviewed and old records reviewed Mode of arrival: ambulatory History of Present Illness ED Provider: Agnes Oakley PA-C HPI narrative: 79-year-old male with a past medical history CHF, AFib on Eliquis, CAD, renal cell carcinoma, CKD, HLD, BPH, mood disorder, COPD, obesity, presenting to the ED complaining of fever 99 noted by home PT prior to arrival. Patient's brother reports dry cough. Of note patient was recently discharged from our facility on 08/22/2024 s/p admission for dyspnea likely multifactorial secondary to CHF, and hypertensive urgency. Patient denies CP, SOB, abdominal pain, nausea, vomiting, pedal edema, calf tenderness. Reports compliance with prescribed medications. Lives home alone. Related Data Home Medications ?Medication ?Instructions ?Recorded ?Confirmed docusate sodium 100 mg capsule 100 mg PO DAILY 08/17/21 08/21/24 apixaban 5 mg tablet (Eliquis) 5 mg PO BID 01/27/22 08/21/24 atorvastatin 80 mg tablet 80 mg PO DAILY 01/27/22 08/21/24 sertraline 50 mg tablet 50 mg PO DAILY 07/06/22 08/21/24 quetiapine 25 mg tablet 25 mg PO BID 12/28/22 08/21/24 tamsulosin 0.4 mg capsule 0.4 mg PO DAILY 03/07/23 08/21/24 cilostazol 50 mg tablet 50 mg PO BID 03/27/23 08/21/24 clonazepam 0.5 mg tablet 0.5 mg PO BID Anxiety 11/15/23 08/21/24 dextroamphetamine-amphetamine 7.5 1 tab PO DAILY 03/18/24 08/21/24 mg tablet melatonin 3 mg capsule 3 mg PO BEDTIME PRN Sleep 04/12/24 08/21/24 aspirin 81 mg tablet,delayed 81 mg PO DAILY 07/11/24 08/21/24 release metoprolol tartrate 25 mg tablet 12.5 mg PO BID 07/11/24 08/21/24 gabapentin 100 mg capsule 300 mg PO BEDTIME Pain (Scale 08/21/24 08/21/24 Score 1-3) Previous Rx's ?Medication ?Instructions ?Recorded dronedarone 400 mg tablet (Multaq) 400 mg PO BID #180 tabs 03/21/24 furosemide 40 mg tablet 40 mg PO DAILY #90 tabs 04/16/24 hydralazine 25 mg tablet 25 mg PO BID 30 days #60 tabs 04/19/24 polyethylene glycol 3350 17 gram 17 g PO BEDTIME 30 days #30 ea 06/23/24 oral powder packet albuterol sulfate 90 mcg/actuation 2 puff inhalation RQ4H PRN sob #1 g 07/13/24 aerosol inhaler (Ventolin HFA) celecoxib 200 mg capsule (Celebrex) 200 mg PO DAILY #30 caps 08/01/24 oxycodone 5 mg tablet 5 mg PO Q8H PRN pain #21 tabs 08/21/24 amoxicillin 875 mg-potassium 1 tab PO BID 7 days #14 tabs 08/26/24 clavulanate 125 mg tablet doxycycline hyclate 100 mg tablet 100 mg PO BID 7 days #14 tabs 08/26/24 Allergies Allergy/AdvReac Type Severity Reaction Status Date / Time No Known Allergies Allergy Verified 08/26/24 12:23 [No Known Allergies*] Review of Systems 2 Review of Systems: Yes all other systems are reviewed and are negative Constitutional: Constitutional: Reports as per [facility] Past Medical History Attestation statement: The following information was validated with the patient. Source: old records reviewed Medical History Paroxysmal atrial flutter Preoperative cardiovascular examination Coronary artery disease Hypersomnia Snoring Neuropathy Atherosclerotic cardiovascular disease History of alcohol abuse History of COVID-19 On beta jose at home COPD (chronic obstructive pulmonary disease) On anticoagulant therapy History of atrial fibrillation PVD (peripheral vascular disease) Renal cell carcinoma Hypertension Depression Anxiety Diverticulitis Surgical History History of intestinal surgery History of kidney surgery H/O cardiac catheterization History of colectomy S/P femoral-femoral bypass surgery Social History Social History Household Members: Significant Other Housing: House Are you a primary career technical counselor to a significant other at home: No Do you presently have visiting nurse or other home services: No Alcohol intake: never Patient Tobacco Use Status: Former Tobacco user Tobacco use type: Cigarette Smoked in Last 30 Days: No Second Hand Smoke Exposure: No Use of substances other than those prescribed or required for medical reasons: No Substance Use Type: Marijuana Advance Directives: No Advance Directives Information Provided: Yes Advance Directives Date on File: 06/09/21 Do you have a plan to hurt others: No Plan service: No Current occupational status: retired Current occupation: right hand dominant Physical Exam ED Vital Signs: Vital Signs - 24 hr 08/26/24 12:15 08/26/24 16:00 08/26/24 16:20 Temperature 98.9 F 101.0 F H 99.9 F Pulse Rate 89 85 90 Respiratory Rate 18 16 18 Blood Pressure 136/68 169/61 H 167/66 H Pulse Oximetry 95 95 93 Oxygen Delivery Method Room Air Room Air Room Air 08/26/24 18:00 Temperature 97.3 F Pulse Rate 79 Respiratory Rate 19 Blood Pressure 167/68 H Pulse Oximetry 96 Oxygen Delivery Method Room Air BMI result Body Mass Index 31.5 Const General: cooperative, healthy appearing and no acute distress Orientation/consciousness: patient oriented x3 Limitations: no limitations HENMT Head: Yes normal to inspection and Yes atraumatic Ears: hearing grossly normal bilaterally General nose exam: Normal external nose present Face and sinus: Yes normal facial exam Eyes General: appearance normal, both eyes and all related structures EOM: EOMs intact bilaterally Neck Neck: Yes normal visual inspection and Yes no meningeal signs Resp Effort & Inspection: normal respiratory effort and no respiratory distress Auscultation: crackles on the left at the base Cardio Rate: regular rate Heart sounds: S1 normal heart sound present and S2 normal heart sound present GI Inspection: Yes normal to inspection Palpation (GI): Soft to palpation, nontender, no guarding and not rigid Skin Rashes: no rashes Wounds: no wounds Neuro General: patient oriented x3, tone normal and no meningeal signs Cranial nerves: Yes CN's II-XII intact bilaterally Gait exam (Neuro): Normal gait present Extrem General: Yes normal to inspection, Yes no pedal edema and Yes no calf tenderness Course Course Course Narrative: RME, this is a rapid medical exam performed by eJ Delgado please refer to primary provider for complete H&P- 79-year-old male presents for evaluation of a reported fever. He was having home physical therapy and apparently had a fever when checked by the physical therapist. The patient reports he did not have any fever when he checked himself at home. He has no complaints. He was recently discharged here 4 days ago for congestive heart failure. Denies any cough, shortness of breath. Plan for repeat chest x-ray, labs. The patient is afebrile in triage and well-appearing. -1658--mild leukocytosis of 12.2. H&H at patient's baseline. Labs otherwise reassuring -viral testing negative XR chest 2V IMPRESSION: Left lower lobe pneumonia. No definite effusions. Suggestion of peribronchial thickening in both lower lobes left greater than right. Likely underlying COPD. >will obtain lactic/blood cx & give empiric abx -1800--ED care transferred to [facility] pending BNP & ambulation trial with pulse ox. Dispo per results. Anticipate discharge home Reevaluation(s) Reevaluation #1: Paras Kumar PA-C have accepted care of the patient and signed out pending ambulation trial and final disposition Reevaluation #2: Patient was ambulated he dropped his oxygen to 86% he became profoundly short of breath. We will be admitting Time: 20:17 Medications Administered Discontinued Medications Generic Name Dose Route Start Last Admin Trade Name Freq PRN Reason Stop Dose Admin Piperacillin Sod/Tazobactam 50 mls @ 100 mls/hr 08/26/24 17:02 08/26/24 18:30 Sod 3.375 gm/ Sodium Chloride IV 08/26/24 17:31 Infused ONCE ONE Infusion Doxycycline Hyclate 100 mg/ 250 mls @ 166.67 mls/hr 08/26/24 17:12 08/26/24 17:59 Sodium Chloride IV 08/26/24 18:41 166.67 mls/hr ONCE ONE Administration Oxycodone HCl 5 mg 08/26/24 18:00 08/26/24 18:12 Oxycodone Hcl Immed Release 5 Mg Tablet PO 08/26/24 18:01 5 mg ONCE ONE Administration Medical Decision Making Medical Decision Making [facility] Narrative: 79-year-old male with a past medical history CHF, AFib on Eliquis, CAD, renal cell carcinoma, CKD, HLD, BPH, mood disorder, COPD, obesity, presenting to the ED complaining of fever 99 noted by home PT prior to arrival. On exam initially afebrile, now low-grade temp 99.9 degrees, NAD, nontoxic appearing, talking in complete sentences, no respiratory distress, lungs with left basilar crackles, no pedal edema or calf tenderness. Concern for pneumonia vs viral illness vs CHF. Lower suspicion for ACS, PE, DVT or dissection. Low suspicion for severe sepsis at this time Plan: EKG, labs, CXR, viral testing Please refer to course for remaining clinical decision making, interpretation of labs/imaging results, and discussions with consultants and/or family members. Differential Diagnosis Differential Diagnoses: The differential diagnosis associated with the presentation includes As above Admission/Observation Consideration of admission/observation: Escalation of care including admission/observation considered Lab Data MDM Lab Attestation statement: I reviewed the patient's lab results. 08/26/24 13:18 08/26/24 13:17 Labs: Lab Results 08/26/24 08/26/24 08/26/24 Range/Units 13:17 13:18 17:10 WBC 12.2 H (4.8-10.8) X10*3/uL RBC 4.34 L (4.60-5.80) X10*6/uL Hgb 13.5 L (14.0-18.0) g/dl Hct 41.5 L (42.0-52.0) % MCV 95.6 (80.0-98.0) fL MCH 31.1 (27.0-33.0) pg MCHC 32.5 (31.0-36.0) g/dl RDW 15.9 (11.0-16.0) % Plt Count 255 (160-400) X10*3/uL MPV 10.2 (9.4-12.4) fL Immature Gran % (Auto) 0.4 (0.0-0.4) % Neut % (Auto) 88.1 H (45-73) % Lymph % (Auto) 3.6 L (20-40) % [place] % (Auto) 7.6 (2-11) % Eos % (Auto) 0.0 (0-4) % Baso % (Auto) 0.3 (0-2) % Lymph # (Auto) 0.4 L (1.2-4.9) X10*3/uL [place] # (Auto) 0.9 (0.1-1.2) X10*3/uL Eos # (Auto) 0.0 (0.0-0.4) X10*3/uL Baso # (Auto) 0.0 (0.0-0.2) X10*3/uL Abs Immat Gran (auto) 0.05 H (0.00-0.03) X10*3/uL Absolute Neuts (auto) 10.7 H (2.0-8.3) x10*3/uL Absolute Nucleated RBC 0.000 (0.0-0.012) X10*3/uL Nucleated RBC % (auto) 0.0 (0.0-0.2) /100WBC Hold Purple Top Sodium 135 (135-145) mmol/L Potassium 4.5 D (3.3-5.1) mmol/L Chloride 106 (96-108) mmol/L Carbon Dioxide 19 L (22-29) mmol/L Anion Gap 15 (12-20) BUN 20 H (9-16) mg/dL Creatinine 1.16 (0.5-1.4) mg/dL Estim Creat Clear Calc 68.8 Estimated GFR > 60 Random Glucose 97 (60-115) mg/dL Lactic Acid 1.2 (0.5-2.0) mmol/L Calcium 9.2 (8.4-10.2) mg/dL Magnesium 1.9 (1.6-2.6) mg/dL Total Bilirubin 0.7 (0.0-1.0) mg/dL AST 27 (5-37) U/L ALT 11 (0-40) U/L Alkaline Phosphatase 111 (39-117) U/L B-Natriuretic Peptide (<100) pg/mL Total Protein 7.0 (6.5-8.0) g/dL Albumin 4.0 (3.5-5.0) g/dL Lipase 9 (8-78) U/L Influenza Type A (PCR) NEGATIVE (Negative) Influenza Type B (PCR) NEGATIVE (Negative) RSV RNA Qual (PCR) NEGATIVE (Negative) SARS-CoV-2 RNA (RT-PCR) NEGATIVE (Negative) 08/26/24 08/26/24 Range/Units 17:16 17:28 WBC (4.8-10.8) X10*3/uL RBC (4.60-5.80) X10*6/uL Hgb (14.0-18.0) g/dl Hct (42.0-52.0) % MCV (80.0-98.0) fL MCH (27.0-33.0) pg MCHC (31.0-36.0) g/dl RDW (11.0-16.0) % Plt Count (160-400) X10*3/uL MPV (9.4-12.4) fL Immature Gran % (Auto) (0.0-0.4) % Neut % (Auto) (45-73) % Lymph % (Auto) (20-40) % [place] % (Auto) (2-11) % Eos % (Auto) (0-4) % Baso % (Auto) (0-2) % Lymph # (Auto) (1.2-4.9) X10*3/uL [place] # (Auto) (0.1-1.2) X10*3/uL Eos # (Auto) (0.0-0.4) X10*3/uL Baso # (Auto) (0.0-0.2) X10*3/uL Abs Immat Gran (auto) (0.00-0.03) X10*3/uL Absolute Neuts (auto) (2.0-8.3) x10*3/uL Absolute Nucleated RBC (0.0-0.012) X10*3/uL Nucleated RBC % (auto) (0.0-0.2) /100WBC Hold Purple Top SEE NOTE Sodium (135-145) mmol/L Potassium (3.3-5.1) mmol/L Chloride (96-108) mmol/L Carbon Dioxide (22-29) mmol/L Anion Gap (12-20) BUN (9-16) mg/dL Creatinine (0.5-1.4) mg/dL Estim Creat Clear Calc Estimated GFR Random Glucose (60-115) mg/dL Lactic Acid (0.5-2.0) mmol/L Calcium (8.4-10.2) mg/dL Magnesium (1.6-2.6) mg/dL Total Bilirubin (0.0-1.0) mg/dL AST (5-37) U/L ALT (0-40) U/L Alkaline Phosphatase (39-117) U/L B-Natriuretic Peptide 379 H (<100) pg/mL Total Protein (6.5-8.0) g/dL Albumin (3.5-5.0) g/dL Lipase (8-78) U/L Influenza Type A (PCR) (Negative) Influenza Type B (PCR) (Negative) RSV RNA Qual (PCR) (Negative) SARS-CoV-2 RNA (RT-PCR) (Negative) Independent Interpretation I performed an independent interpretation of an: EKG and Plain X-Ray Radiology Impression Discussion of test interpretation with radiology: I have reviewed the radiologist's reading. Independent Historian Clinical information obtained from an independent historian. History obtained from or confirmed by: Other (Brother) External Record Review External record reviewed: Inpatient record, Office record, Outpatient record, Prior outpatient labs, Prior outpatient radiology, Primary care record and Outside ED record Tests considered The following testing was considered but not selected: As above Prescription Management I considered prescription management with: Antibiotic Chronic Conditions Patient?s care impacted by: Hypertension and Cancer Social Determinants Patient?s care significantly limited by Social Determinants of Health including: Other Social Determinant of Health Discharge Plan Discharge Clinical Impression: Pneumonia Patient Disposition: Admitted As Inpatient Instructions: Pneumonia (ED) Additional Instructions: You have pneumonia Augmentin and doxycycline are antibiotics please take as prescribed Please continue all other home prescribed medications Keep her fever under control, take Tylenol as needed If her symptoms persist or worsen you constant or worsening cough, shortness of breath, chest pain, fever unresolved with medications return to the ED immediately Have close follow up with your doctor in the next 3-5 days Prescriptions: New doxycycline hyclate 100 mg tablet 100 mg PO BID 7 Days Qty: 14 0RF amoxicillin-pot clavulanate 875-125 mg tablet 1 tab PO BID 7 Days Qty: 14 0RF No Action cilostazol 50 mg tablet 50 mg PO BID furosemide 40 mg tablet 40 mg PO DAILY Qty: 90 3RF oxycodone 5 mg tablet 5 mg PO Q8H PRN (Reason: pain) Qty: 21 0RF Rx Instructions: Partial Fill upon patient request. atorvastatin 80 mg tablet 80 mg PO DAILY Eliquis 5 mg tablet 5 mg PO BID sertraline 50 mg tablet 50 mg PO DAILY polyethylene glycol 3350 17 gram Powder In Packet 17 g PO BEDTIME 30 Days Qty: 30 0RF gabapentin 100 mg capsule 300 mg PO BEDTIME dextroamphetamine-amphetamine 7.5 mg tablet 1 tab PO DAILY Multaq 400 mg Tablet 400 mg PO BID Qty: 180 0RF aspirin 81 mg tablet,delayed release (DR/EC) 81 mg PO DAILY metoprolol tartrate 25 mg tablet 12.5 mg PO BID albuterol sulfate [Ventolin HFA] 90 mcg/actuation Hfa Aerosol Inhaler 2 puff inhalation RQ4H PRN (Reason: sob) Qty: 1 0RF docusate sodium 100 mg capsule 100 mg PO DAILY quetiapine 25 mg tablet 25 mg PO BID clonazepam 0.5 mg tablet 0.5 mg PO BID hydralazine 25 mg tablet 25 mg PO BID 30 Days Qty: 60 4RF Rx Instructions: New med for BP celecoxib [Celebrex] 200 mg capsule 200 mg PO DAILY Qty: 30 1RF tamsulosin 0.4 mg capsule 0.4 mg PO DAILY melatonin 3 mg capsule 3 mg PO BEDTIME PRN (Reason: Sleep) Referrals: Sesar Pereyra MD [Primary Care Provider] - 3 days Print Language: Spanish
[2024-08-26 13:23] LABS: MANUAL DIFF FLAG NO
[2024-08-26 13:29] LABS: Basophils Percent Auto 0.3 % (0-2); Hematocrit 41.5 % (42.0-52.0); Hemoglobin 13.5 g/dl (14.0-18.0); Imm Gran Abs Auto 0.05 X10*3/uL (0.00-0.03); Imm Gran Pct Auto 0.4 % (0.0-0.4); Lymphocytes Absolute Auto 0.4 X10*3/uL (1.2-4.9); Lymphocytes Percent Auto 3.6 % (20-40); Mean Corpuscular HGB Conc 32.5 g/dl (31.0-36.0); Mean Corpuscular Hemoglobin 31.1 pg (27.0-33.0); Mean Corpuscular Volume 95.6 fL (80.0-98.0); Mean Platelet Volume 10.2 fL (9.4-12.4); Monocytes Absolute Auto 0.9 X10*3/uL (0.1-1.2); Monocytes Percent Auto 7.6 % (2-11); Neutrophils Absolute Auto 10.7 x10*3/uL (2.0-8.3); Neutrophils Percent Auto 88.1 % (45-73); Platelet Count 255 X10*3/uL (160-400); Red Blood Count 4.34 X10*6/uL (4.60-5.80); Red Cell Distribution Width 15.9 % (11.0-16.0); White Blood Count 12.2 X10*3/uL (4.8-10.8)
[2024-08-26 13:51] LABS: Alanine Aminotransferase 11 U/L (0-40); Alkaline Phosphatase 111 U/L (39-117); Anion Gap 15 (12-20); Aspartate Amino Transferase 27 U/L (5-37); Bilirubin Total 0.7 mg/dL (0.0-1.0); Blood Urea Nitrogen 20 mg/dL (9-16); Calcium 9.2 mg/dL (8.4-10.2); Carbon Dioxide 19 mmol/L (22-29); Chloride 106 mmol/L (96-108); Creatinine Clr Calc Pharmacy 68.8; Estimated Glomerular Filt Rate > 60; Glucose Random 97 mg/dL (60-115); Lipase 9 U/L (8-78); Potassium 4.5 mmol/L (3.3-5.1); Sodium 135 mmol/L (135-145)
[2024-08-26 14:09] LABS: Influenza A PCR NEGATIVE (Negative); Influenza B PCR NEGATIVE (Negative); Resp Syncy Virus RNA Qual PCR NEGATIVE (Negative); SARS COV2 PCR INHOUSE NEGATIVE (Negative)
[2024-08-26 16:00] VITALS: BP 169/61; PULSE 85; RESP 16; TEMP 38.3; O2SAT 95
[2024-08-26 16:20] VITALS: BP 167/66; PULSE 90; RESP 18; TEMP 37.7; O2SAT 93
--- NOTE | 2024-08-26 16:40 | PC.NURSE ---
Pt very resistive to staying in ED. Lactic / cultures ordered by RME provider. Spoke to primary provider Agnes, will defer lactic/cultures until after provider reviews chart/speaks w/ patient.
--- NOTE | 2024-08-26 16:57 | ECG_ITS ---
Test Reason : SHORTNESS OF BREATH Blood Pressure : */* mmHG Vent. Rate : 78 BPM Atrial Rate : 78 BPM P-R Int : 196 ms QRS Dur : 84 ms QT Int : 448 ms P-R-T Axes : 89 -1 19 degrees QTcB Int : 510 ms Sinus rhythm with Premature atrial complexes Nonspecific ST abnormality Prolonged QT Abnormal ECG When compared with ECG of 22-Aug-2024 16:12, No significant change was found Referred By: Agnes Oakley Electronically Signed By: Brad Mims
[2024-08-26 17:17] LABS: Magnesium 1.9 mg/dL (1.6-2.6)
[2024-08-26 17:33] LABS: Lactic Acid 1.2 mmol/L (0.5-2.0)
[2024-08-26] MEDS: Doxycycline Hyclate 100 MG in 0.9 % Sodium Chloride 250 ML 166.67 MG IV (17:59)
[2024-08-26] MEDS: Piperacillin Sodium/Tazobactam 3.375 GM in 0.9 % Sodium Chloride 50 ML IV (17:59)
[2024-08-26 18:00] VITALS: BP 167/68; PULSE 79; RESP 19; TEMP 36.3; O2SAT 96
[2024-08-26 18:00] LABS: B Type Natriuretic Peptide 379 pg/mL (<100)
[2024-08-26] MEDS: oxyCODONE HCl Immed Release 5 MG TABLET PO ×3 (18:12→23:05)
--- NOTE | 2024-08-26 18:28 | MHC.EDTECH ---
Patient walked and there o2 sustained at 93%
--- OUTSIDE RECORDS SUMMARY | 2024-08-26 19:02 | XMS_ITS | Encounter Summary ---
Author Organization [facility] Address [address] [place] [address] Care Team Providers Care Printing Equipment Mechanic Apprentice Name Role Phone Yolande Nicholas DO Primary Care Pro vider Unavailable Anuj Priest DO Primary Care Provider [facility], Pcp Primary Care Provider Unavaillegacy [facility] e Encounter Details Date Type Department Care Team Description 09/26/2019 Pt. Non Urgent Medical Question Adult Medicine [address] [address] Alana Stinson MD [address] [place] [id number] Social History Tobacco Use Types Packs/Day [...] him, told him needs to fu / [facility] cards for both. Can consider change in [...] filedocumented in this encounter Care Teams Printing Equipment Mechanic Apprentice Relationship Specialty Start Date End Date Yolande Nicholas DO PCP - General Internal Medicine 12/03/18 10/08/20 Anuj Priest DO PCP - General Internal Medicine 10/09/20 2 [facility], Pcp PCP - General Internal Medicine 06/17/21 documented as of this encounter
--- OUTSIDE RECORDS SUMMARY | 2024-08-26 19:02 | XMS_ITS | Encounter Summary ---
Author Organization [facility] Address [address] [place] [address] Care Team Providers Care Fruit I Farmworker Name Role Phone Yolande Nicholas DO Primary Care Pro vider Unavailable Anuj Priest DO Primary Care Provider Judy Gardner, Pcp Primary Care Provider Unavailabl e Encounter Details Date Type Department Care Team Description 09/20/2019 Pt. Non Urgent Medic al Question Adult Medicine [address] [address] Yolande Nicholas DO Social History Tobacco Use [...] on filedocumented in this encounter Care Teams Fruit I Farmworker Relationship Specialty Start Date End Date Yolande Nicholas DO PCP - General Internal Medicine 12/03/18 10/08/20 Anuj Priest DO PCP - General Internal Medicine 10/09/20 Molly Gardner, Pcp PCP - General Internal Medicine 06/17/21 documented as of this encounter
--- OUTSIDE RECORDS SUMMARY | 2024-08-26 19:02 | XMS_ITS | Encounter Summary ---
Author Organization [facility] [place] Address [address] [place] [address] Care Team Providers Care Photography Assistant Name Role Phone Ghassan Burciaga MD Primary Care Provider Unavail able Pierre Arevalo MD Primary Care Provider Judy vailable Gerson Dawson MD Primary Care Provider Unavail able [facility], Pcp Primary Care Provider Unavailabl e Coleman Mccarthy MD Primary Care Provider Unavaila Ayo Demarco MD Primary Care Provider [phone] Annalee Jones MD Primary Care Provider Un available Kim Banegas Yolande DO Primary Care Pro vider Unavailable Anuj Priest DO Primary Care Provider Judy vailable [facility], Pcp Primary Care Provider Unavailabl e Encounter Details Date Type Department Care Team Description 06/25/2011 Pt. Non Urgent Medic al Question Medicine/Pediatrics - [address] [phone] Ghassan Burciaga MD Social History Tobacco Use [...] on filedocumented in this encounter Care Teams Photography Assistant Relationship Specialty Start Date End Date Ghassan Burciaga MD PCP - General 07/24/00 05/06/13 Pierre Arevalo MD PCP - General Internal Medicine 05/07/13 4 Gerson Dawson MD PCP - General Internal Medicine 01/30/14 03/20/14 [facility], Pcp PCP - General Internal Medicine 03/21/14 05/06/14 Coleman Mccarthy MD PCP - General Internal Medicine 05/07/14 07/18/16 Ayo Carpio MD [address] [place] [id number] PCP - General Internal Medicine 07/19/16 01/05/17 Annalee Jones MD [address] [place] [id number] PCP - General Internal Medicine 01/06/17 12/02/18 Yolande Nicholas, [address] [address] PCP - General Internal Medicine 12/03/18 10/08/20 Anuj Priest, [address] [address] PCP - General Internal Medicine 10/09/20 06/16/21 [facility], Pcp PCP - General Internal Medicine 06/17/21 documented as of this encounter
--- OUTSIDE RECORDS SUMMARY | 2024-08-26 19:02 | XMS_ITS | Encounter Summary ---
Author Organization [facility] Address [address] [place] [address] Care Team Providers Care Cell Biology Scientist Name Role Phone Yolande Nicholas DO Primary Care Pro vider Unavailable Anuj Priest DO Primary Care Provider Judy Gardner, Pcp Primary Care Provider Unavailabl e Encounter Details Date Type Department Care Team Description 10/23/2019 Release of Information Medical Records [address] [place] [id number] Abstract, Provider Social History Tobacco Use Types [...] on filedocumented in this encounter Care Teams Cell Biology Scientist Relationship Specialty Start Date End Date Yolande Nicholas DO PCP - General Internal Medicine 12/03/18 10/08/20 Anuj Priest DO PCP - General Internal Medicine 10/09/20 2 Jj, Pcp PCP - General Internal Medicine 06/17/21 documented as of this encounter
--- OUTSIDE RECORDS SUMMARY | 2024-08-26 19:02 | XMS_ITS | Encounter Summary ---
Author Organization [facility] Address [address] [place] [address] Care Team Providers Care Benefits Representative Name Role Phone Yolande Nicholas DO Primary Care Pro vider Unavailable Anuj Priest DO Primary Care Provider Judy Gardner, Pcp Primary Care Provider Unavailabl e Encounter Details Date Type Department Care Team Description 10/07/2019 Pt. Non Urgent Medic al Question Adult Medicine [address] [address] Yolande Nicholas DO Social History Tobacco Use [...] on filedocumented in this encounter Care Teams Benefits Representative Relationship Specialty Start Date End Date Yolande Nicholas DO PCP - General Internal Medicine 12/03/18 10/08/20 Anuj Priest DO PCP - General Internal Medicine 10/09/20 Molly Gardner, Pcp PCP - General Internal Medicine 06/17/21 documented as of this encounter
--- OUTSIDE RECORDS SUMMARY | 2024-08-26 19:02 | XMS_ITS | Encounter Summary ---
Author Organization [facility] Address [address] [place] [address] Care Team Providers Care Loss Prevention Leader Name Role Phone Ghassan Burciaga MD Primary Care Provider Unavail able Pierre Arevalo MD Primary Care Provider Judy vailable Gerosn Dawson MD Primary Care Provider Unavail able [facility], Pcp Primary Care Provider Unavailabl e Coleman Mccarthy MD Primary Care Provider Unavaila Ayo Demarco MD Primary Care Provider [phone] Annalee Jones MD Primary Care Provider Un available Kim Banegas Yolande DO Primary Care Pro vider Unavailable Anuj Priest DO Primary Care Provider Judy vailable [facility], Pcp Primary Care Provider Unavailabl e Encounter Details Date Type Department Care Team Description 06/25/2011 Pt. Non Urgent Medic al Question Medicine/Pediatrics - [address] [phone] Ghassan Burciaga MD Social History Tobacco Use [...] filedocumented in this encounter Care Teams Loss Prevention Leader Relationship Specialty Start Date End Date Ghassan Burciaga MD PCP - General 07/24/00 05/06/13 Pierre Arevalo MD PCP - General Internal Medicine 05/07/13 4 Gerson Dawson MD PCP - General Internal Medicine 01/30/14 03/20/14 [facility], Pcp PCP - General Internal Medicine 03/21/14 05/06/14 Coleman Mccarthy MD PCP - General Internal Medicine 05/07/14 07/18/16 Ayo Carpio MD [address] [place] [id number] PCP - General Internal Medicine 07/19/16 01/05/17 Annalee Jones MD [address] [place] [address] PCP - General Internal Medicine 01/06/17 12/02/18 Yolande Nicholas, [address] [address] PCP - General Internal Medicine 12/03/18 10/08/20 Anuj Priest, [address] [address] PCP - General Internal Medicine 10/09/20 06/16/21 [facility], Pcp PCP - General Internal Medicine 06/17/21 documented as of this encounter
--- OUTSIDE RECORDS SUMMARY | 2024-08-26 19:02 | XMS_ITS | Encounter Summary ---
Author Organization [facility] Address [address] [place] [address] Care Team Providers Care Medical Observer Name Role Phone Ghassan Burciaga MD Primary Care Provider Unavail able Pierre Arevalo MD Primary Care Provider Judy vailable Gerson Dawson MD Primary Care Provider Unavail able [facility], Pcp Primary Care Provider Unavailabl e Coleman Mccarthy MD Primary Care Provider Unavaila Ayo Demarco MD Primary Care Provider [phone] Annalee Jones MD Primary Care Provider Un available Kim Banegas Yolande DO Primary Care Pro vider Unavailable Anuj Priest DO Primary Care Provider Judy vailable [facility], Pcp Primary Care Provider Unavailabl e Encounter Details Date Type Department Care Team Description 06/25/2011 Pt. Non Urgent Medic al Question Medicine/Pediatrics - [address] [phone] Ghassan Burciaga MD Social History Tobacco Use [...] filedocumented in this encounter Care Teams Medical Observer Relationship Specialty Start Date End Date Ghassan Burciaga MD PCP - General 07/24/00 05/06/13 Pierre Arevalo MD PCP - General Internal Medicine 05/07/13 4 Gerson Dawson MD PCP - General Internal Medicine 01/30/14 03/20/14 [facility], Pcp PCP - General Internal Medicine 03/21/14 05/06/14 Coleman Mccarthy MD PCP - General Internal Medicine 05/07/14 07/18/16 Ayo Carpio MD [address] [place] [address] PCP - General Internal Medicine 07/19/16 01/05/17 Annalee Jones MD [address] [place] [address] PCP - General Internal Medicine 01/06/17 12/02/18 Yolande Nicholas, [address] [address] PCP - General Internal Medicine 12/03/18 10/08/20 Anuj Priest, [address] [address] PCP - General Internal Medicine 10/09/20 06/16/21 [facility], Pcp PCP - General Internal Medicine 06/17/21 documented as of this encounter
--- OUTSIDE RECORDS SUMMARY | 2024-08-26 19:02 | XMS_ITS | Encounter Summary ---
Author Organization [facility] Address [address] [place] [address] Care Team Providers Care Lightning Rod Installer Name Role Phone Yolande Nicholas DO Primary Care Pro vider Unavailable Anuj Pirest DO Primary Care Provider [facility], Pcp Primary Care Provider Unavailabl e Reason for Visit * Reason Onset Date Comments anxiety 09/16/2019 Encounter Details Date Type Department Care Team Description 09/16/2019 Pt. Non Urgent Medic al Question Adult Medicine [address] [address] Yolande Nicholas DO Social History Tobacco Use [...] the med report [facility] . I need to know which meds i should take? Alex Nettles documented in this encounter Plan of Treatment Not on file documented as of this encounter Visit Diagnoses Not on filedocumented in this encounter Care Teams Lightning Rod Installer Relationship Specialty Start Date End Date Yolande Nicholas DO PCP - General Internal Medicine 12/03/18 10/08/20 Anuj Priest DO PCP - General Internal Medicine 10/09/20 2 [facility], Pcp PCP - General Internal Medicine 06/17/21 documented as of this encounter
--- OUTSIDE RECORDS SUMMARY | 2024-08-26 19:02 | XMS_ITS | Encounter Summary ---
Author Organization [facility] Address [address] [place] [address] Care Team Providers Care Towel Hemmer Name Role Phone Yolande Nicholas DO Primary Care Pro vider Unavailable Anuj Priest DO Primary Care Provider Judy Gardner, Pcp Primary Care Provider Unavailabl e Encounter Details Date Type Department Care Team Description 11/08/2019 Insurance Claims Assistant Report Medical Records [address] [place] [address] Cedrick Siddiqui Social History Tobacco Use Types [...] on filedocumented in this encounter Care Teams Towel Hemmer Relationship Specialty Start Date End Date Yolande Nicholas DO PCP - General Internal Medicine 12/03/18 10/08/20 Anuj Priest DO PCP - General Internal Medicine 10/09/20 2 J[facility], Pcp PCP - General Internal Medicine 06/17/21 documented as of this encounter
--- OUTSIDE RECORDS SUMMARY | 2024-08-26 19:02 | XMS_ITS | Encounter Summary ---
Author Organization [facility] Address [address] [place] [address] Care Team Providers Care Secondary History Teacher Name Role Phone Yolande Nicholas DO Primary Care Pro vider Unavailable Anuj Priest DO Primary Care Provider [facility], Pcp Primary Care Provider Unavailabl e Reason for Visit * Reason Onset Date Comments Faxed Refill 09/10/2019 Encounter Details Date Type Department Care Team Description 09/10/2019 Refill Adult Medicine [address] [address] Yolande Nicholas DO Faxed Refill Social History [...] N/A Patients current insurance carrier is: Payor: [facility] MEDIC[facility] / Plan: MEDICARE FFS $5 [facility] [id number] / Product Type: MEDICARE [id number] documented in this encounter Plan of Treatment Not on file documented as of this encounter Visit Diagnoses Not on filedocumented in this encounter Care Teams Secondary History Teacher Relationship Specialty Start Date End Date Yolande Nicholas DO PCP - General Internal Medicine 12/03/18 10/08/20 Anuj Priest DO PCP - General Internal Medicine 10/09/20 2 [facility], Pcp PCP - General Internal Medicine 06/17/21 documented as of this encounter
--- OUTSIDE RECORDS SUMMARY | 2024-08-26 19:02 | XMS_ITS | Encounter Summary ---
Author Organization [facility] Address [address] [place] [address] Care Team Providers Care Catalogue Maker Name Role Phone Ghassan Burciaga MD Primary [...] Date Type Department Care Team Description 09/21/2012 Triage Assistant Report Medical Records [address] [place] [phone] nAuj [place] Social History Tobacco Use Types Packs/Day [...] on filedocumented in this encounter Care Teams Catalogue Maker Relationship Specialty Start Date End Date Ghassan Burciaga MD PCP - General 07/24/00 05/06/13 Pierre Arevalo MD PCP - General Internal Medicine 05/07/13 4 Gerson Dawson MD PCP - General Internal Medicine 01/30/14 03/20/14 [facility], Pcp PCP - General Internal Medicine 03/21/14 05/06/14 Coleman Mccarthy MD PCP - General Internal Medicine 05/07/14 07/18/16 Ayo Carpio MD [address] [place], [place] [id number] PCP - General Internal Medicine 07/19/16 01/05/17 Annalee Jones MD [address] [place], [place] [id number] PCP - General Internal Medicine 01/06/17 12/02/18 Yolande Nicholas DO [address] [place] [address] PCP - General Internal Medicine 12/03/18 10/08/20 Anuj Priest DO [address] [place] [address] PCP - General Internal Medicine 10/09/20 06/16/21 [facility], Pcp PCP - General Internal Medicine 06/17/21 documented as of this encounter
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
--- OUTSIDE RECORDS SUMMARY | 2024-08-26 19:02 | XMS_ITS | Encounter Summary ---
Author Organization [facility] [facility] Address [address] [place] [address] Care Team Providers Care Sale Professional Digital Marketing Name Role Phone Ghassan Burciaga MD Primary Care Provider Unavail able Pierre Arevalo MD Primary Care Provider Judy vailable Gerson Dawson MD Primary Care Provider Unavail able [facility], Pcp Primary Care Provider Unavailabl e Coleman Mccarthy MD Primary Care Provider Unavaila Ayo Demarco MD Primary Care Provider [phone] Annalee Jones MD Primary Care Provider Un available Pascual Nicholasabela DO Primary Care Pro vider Unavailable Anuj Priest DO Primary Care Provider Judy vailable [facility], Pcp Primary Care Provider Unavailabl e Encounter Details Date Type Department Care Team Description 07/05/2011 Weighbridge Operator Report Medical Records [address] [place] [id number] Abstract, Provider Social History Tobacco Use Types [...] on filedocumented in this encounter Care Teams Sale Professional Digital Marketing Relationship Specialty Start Date End Date Ghassan Burciaga MD PCP - General 07/24/00 05/06/13 Pierre Arevalo MD PCP - General Internal Medicine 05/07/13 4 Gerson Dawson MD PCP - General Internal Medicine 01/30/14 03/20/14 [facility], Pcp PCP - General Internal Medicine 03/21/14 05/06/14 Coleman Mccarthy MD PCP - General Internal Medicine 05/07/14 07/18/16 Ayo Caprio MD [address] [place], [place] [id number] PCP - General Internal Medicine 07/19/16 01/05/17 Annalee Jones MD [address] [place], [place] [id number] PCP - General Internal Medicine 01/06/17 12/02/18 Yolande Nicholas DO [address] [place] [address] PCP - General Internal Medicine 12/03/18 10/08/20 Anuj Priest DO [address] [place] [address] PCP - General Internal Medicine 10/09/20 06/16/21 [facility], Pcp PCP - General Internal Medicine 06/17/21 documented as of this encounter
--- OUTSIDE RECORDS SUMMARY | 2024-08-26 19:02 | XMS_ITS | Encounter Summary ---
Author Organization [facility] Address [address] [place] [address] Care Team Providers Care Utility Operator Yarn Name Role Phone Yolande Nicholas DO Primary Care Pro vider Unavailable Anuj Priest DO Primary Care Provider [facility], Pcp Primary Care Provider Unavailabl e Reason for Visit * Reason Onset Date Comments Faxed Order 09/20/2019 Encounter Details Date Type Department Care Team Description 09/20/2019 Telephone Adult [address] [address] Yolande Nicholas DO Faxed Order Social History [...] to be signed and faxed back to [phone] . documented in this encounter Plan of Treatment Not on file documented as of this encounter Visit Diagnoses Not on filedocumented in this encounter Care Teams Utility Operator Yarn Relationship Specialty Start Date End Date Yolande Nicholas DO PCP - General Internal Medicine 12/03/18 10/08/20 Anuj Priest DO PCP - General Internal Medicine 10/09/[address] [place] [address], Pcp PCP - General Internal Medicine 06/17/21 documented as of this encounter
--- OUTSIDE RECORDS SUMMARY | 2024-08-26 19:02 | XMS_ITS | Encounter Summary ---
Author Organization [facility] Address [address] [place] [address] Care Team Providers Care Trucking Supervisor Name Role Phone Yolande Nicholas DO Primary Care Pro vider Unavailable Anuj Priest DO Primary Care Provider Judy Gardner, Pcp Primary Care Provider Unavailabl e Encounter Details Date Type Department Care Team Description 10/08/2019 Home Health Certification Medical Records [address] [place] [address] Home, [facility] [address] [facility] [address] [place] [address] Social History Tobacco Use Types Packs/Day Years [...] on filedocumented in this encounter Care Teams Trucking Supervisor Relationship Specialty Start Date End Date Yolande Nicholas DO PCP - General Internal Medicine 12/03/18 10/08/20 Anuj Priest DO PCP - General Internal Medicine 10/09/20 Molly Gardner, Pcp PCP - General Internal Medicine 06/17/21 documented as of this encounter
--- OUTSIDE RECORDS SUMMARY | 2024-08-26 19:02 | XMS_ITS | Clinical Summary ---
Author Organization Unknown Care Team Providers Care Pre K Special Education Teacher Name Role Phone MARCO RAMIREZ, POOJA Unavailable Unavaileddie GAVIN RN, DAGOBERTO Unavailable Unavailab abraham JIMENEZ PT, COURTNEY Unavailable Unavailable SHERYL HAMMOND, JANETT Unavailable Unavailable Payers Payer Name Policy Type Policy Number Effective Date Expira tion Date [facility] [id number] Problems Condition Name Condition Details Condition Category Status Onset Date Resolution Date Last Treatment Date Treating Clinician Comments ACUTE ON CHRONIC SYSTOLIC (CONGESTIVE ) HEART FAILURE Active 08-22 00:00: 00 Allergies, Adverse Reactions, Alerts Allergy Name Allergy Type Status Severity Reaction(s) Onset Date Inactive Date Treating Clinician Comments NO KNOWN ALLERGIES Propensity to adverse reactions Active 08-24 16:27: 41 Medications Ordered Medication Name Filled Medication Name Start Date Stop Date Current Medication? Ordering Clinician Indication Dosage Frequency Signature (SIG) Comments Components morphine 15 mg immediate release tablet 2023-05 00:00: 00 05-16 23:59 :00 No [id number] PAIN 15 mg EVERY 6 HOURS NEEDED 15 mg EVERY 6 HOURS NEEDED (route: oral) Med Classific ation: Analgesic , Anti-infl ammatory or Antipyret ic clonazepam 0.5 mg tablet 2023-05 00:00: 00 08-24 00:00 :00 No [id number] ANXIETY 0.5 mg 2 TIMES DAILY 0.5 mg 2 TIMES DAILY (route: oral) Med Classific ation: Central Nervous System Agents lisinopril 40 mg tablet 2023-05 00:00: 00 03-21 23:59 :00 No [id number] CAD 40 mg DAILY 40 mg DAILY (route: oral) Med Classific ation: Cardiovas cular Therapy Agents atorvastati n 80 mg tablet 2023-05 00:00: 00 08-24 00:00 :00 No [id number] HYPERTENSIO N 80 mg DAILY 80 mg DAILY (route: oral) Med Classific ation: Cardiovas cular Therapy Agents cilostazol 50 mg tablet 2023-05 00:00: 00 08-24 00:00 :00 No [id number] HYPERTENSIO N 50 mg 2 TIMES DAILY 50 mg 2 TIMES DAILY (route: oral) Med Classific ation: Hematolog ical Agents clopidogrel 75 mg tablet 2023-05 00:00: 00 03-21 23:59 :00 No [id number] CORONARY ARTERY DISEASE 75 mg DAILY 75 mg DAILY (route: oral) Med Classific ation: Hematolog ical Agents Eliquis 5 mg tablet 2023-05 00:00: 00 08-24 00:00 :00 No [id number] ANTI ARRHYTHMIC 5 mg 2 TIMES DAILY 5 mg 2 TIMES DAILY (route: oral) Med Classific ation: Hematolog ical Agents furosemide 40 mg tablet 2023-05 00:00: 00 03-21 23:59 :00 No [id number] BPH 40 mg DAILY 40 mg DAILY (route: oral) Alternate Route: INTRA-MUS CULAR. Med Classific ation: Cardiovas cular Therapy Agents metoprolol tartrate 50 mg tablet 2023-05 00:00: 00 03-22 23:59 :00 No [id number] CAD 50 mg DAILY 50 mg DAILY (route: oral) Med Classific ation: Cardiovas cular Therapy Agents quetiapine 25 mg tablet 2023-05 00:00: 00 08-24 00:00 :00 No [id number] MOOD STABILIZER 25 mg 2 TIMES DAILY 25 mg 2 TIMES DAILY (route: oral) Med Classific ation: Central Nervous System Agents sertraline 50 mg tablet 2023-05 00:00: 00 08-24 00:00 :00 No [id number] MOOD STABILIZER 50 mg DAILY 50 mg DAILY (route: oral) Med Classific ation: Central Nervous System Agents tamsulosin 0.4 mg capsule 2023-05 00:00: 00 08-24 00:00 :00 No [id number] BPH 0.4 mg DAILY 0.4 mg DAILY (route: oral) Med Classific ation: Genitouri nary Therapy docusate sodium 100 mg tablet 2023-05 00:00: 00 08-24 00:00 :00 No [id number] CONSTIPATIO N 100 mg DAILY 100 mg DAILY (route: oral) Med Classific ation: Gastroint estinal Therapy Agents gabapentin 100 mg capsule 2023-05 00:00: 00 08-24 00:00 :00 No [id number] PAIN 1-3 capsule BEDTIME 1-3 capsule BEDTIME (route: oral) Med Classific ation: Central Nervous System Agents metoprolol tartrate 25 mg tablet 2023-05 00:00: 00 03-27 16:09 :43.1 53 No [id number] HYPERTENSIO N 25 mg 2 TIMES DAILY 25 mg 2 TIMES DAILY (route: oral) Med Classific ation: Cardiovas cular Therapy Agents Multaq 400 mg tablet 2023-05 00:00: 00 08-24 00:00 :00 No [id number] ANTIARRHYTH MICHAEL 400 mg 2 TIMES DAILY 400 mg 2 TIMES DAILY (route: oral) Med Classific ation: Cardiovas cular Therapy Agents furosemide 40 mg tablet 2023-05 00:00: 00 08-24 00:00 :00 No [id number] edema 1 tablet DAILY 1 tablet DAILY (route: oral) Med Classific ation: Cardiovas cular Therapy Agents dextroamphe tamine-amph etamine 7.5 mg tablet 2023-05 00:00: 00 08-24 00:00 :00 No [id number] attention 1 tablet DAILY 1 tablet DAILY (route: oral) Med Classific ation: Central Nervous System Agents metoprolol tartrate 25 mg tablet 2023-05 00:00: 00 06-27 23:59 :00 No [id number] heart rate 0.5 tablet 2 TIMES DAILY 0.5 tablet 2 TIMES DAILY (route: oral) Med Classific ation: Cardiovas cular Therapy Agents cephalexin 500 mg capsule 2023-05 00:00: 00 04-10 23:59 :00 No [id number] CELLULITIS LLL 500 mg 4 TIMES DAILY 500 mg 4 TIMES DAILY (route: oral) Med Classific ation: Anti-Infe ctive Agents hydralazine 25 mg tablet 2023-05 00:00: 00 08-24 00:00 :00 No [id number] HTN 25 mg 2 TIMES DAILY 25 mg 2 TIMES DAILY (route: oral) Med Classific ation: Cardiovas cular Therapy Agents melatonin 3 mg tablet 06-27 00:00: 00 08-24 00:00 :00 No [id number] INSOMNIA 1 tablet BEDTIME 1 tablet BEDTIME (route: oral) Med Classific ation: Central Nervous System Agents metoprolol tartrate 25 mg tablet 06-27 00:00: 00 08-24 00:00 :00 No [id number] HTN 1 tablet DAILY 1 tablet DAILY (route: oral) Med Classific ation: Cardiovas cular Therapy Agents oxycodone 5 mg tablet 06-27 00:00: 00 08-24 00:00 :00 No [id number] PAIN 1 tablet EVERY 8 HOURS 1 tablet EVERY 8 HOURS (route: oral) Med Classific ation: Analgesic , Anti-infl ammatory or Antipyret ic polyethylen e glycol 3350 17 gram/dose oral powder 06-27 00:00: 00 08-24 00:00 :00 No [id number] CONSTIPATIO N 17 gram BEDTIME 17 gram BEDTIME (route: oral) Med Classific ation: Gastroint estinal Therapy Agents Tylenol 8 Hour 650 mg tablet,exte nded release 06-27 00:00: 00 08-24 00:00 :00 No [id number] PAIN/FEVER 1 tablet EVERY 6 HOURS 1 tablet EVERY 6 HOURS (route: oral) Med Classific ation: Analgesic , Anti-infl ammatory or Antipyret ic albuterol sulfate HFA 90 mcg/actuati on aerosol inhaler 16 00:00: 00 08-24 00:00 :00 No [id number] SHORTNESS OF BREATH 2 puff EVERY 4 HOURS 2 puff EVERY 4 HOURS (route: inhalation ) Med Classific ation: Respirato ry Therapy Agents azithromyci n 500 mg tablet 16 00:00: 00 08-24 00:00 :00 No [id number] TREATS PNEUMONIA 500 mg DAILY 500 mg DAILY (route: oral) Med Classific ation: Anti-Infe ctive Agents cefuroxime axetil 500 mg tablet 16 00:00: 00 08-24 00:00 :00 No [id number] ANTIBIOTIC TREATS PNEUMONIA 500 mg DAILY 500 mg DAILY (route: oral) Med Classific ation: Anti-Infe ctive Agents celecoxib 200 mg capsule 08-01 00:00: 00 08-24 00:00 :00 No [id number] PAIN 1 capsule DAILY 1 capsule DAILY (route: oral) Med Classific ation: Analgesic , Anti-infl ammatory or Antipyret ic Vital Signs Vital Name Observation Time Observation Value Commen ts Temperature 2024-08-24 16:36:00.000 98.5 [degF] BMI (%) 2024-08-24 16:36:00.000 32 kg/m2 Height 2024-08-24 16:36:00.000 72 [in_us] Pulse 2024-08-24 16:36:00.000 72 /min O2 Saturation (%) 2024-08-24 16:36:00.000 97 % Respirations 2024-08-24 16:36:00.000 18 /min Weight (lbs) 2024-08-24 16:36:00.000 237 [lb_av] Systolic Blood Pressure 2024-08-24 16:36:00.000 150 mm [Hg] Diastolic Blood Pressure 2024-08-24 16:36:00.000 60 mm [Hg] Plan of Treatment Planned Activity Planned Date Details Comments Future Scheduled Test RN TO OBSE RVE, ASSESS, EVALUATE, AND DEVELOP AN INDIVIDUALIZED PLAN OF CARE. AGENCY MAY ACCEPT ORDERS FROM CONSULTING PHYSICIANS. RN TO OBSERVE AND ASSESS, HIDE AND SKIN COLERER/STRATEGIC ADVISOR TO OBSERVE FOR RISK FOR FALLS AND INSTRUCT IN FALL PREVENTION, HOME SAFETY, MEDICATION MANAGEMENT, INFECTION PREVENTION, AND NUTRITION MANAGEMENT. RN/HIDE AND SKIN COLERER/STRATEGIC ADVISOR NURSE MAY PERFORM O2 SATURATION LEVEL ON ADMISSION AND PRN FOR RN TO ASSESS/HIDE AND SKIN COLERER TO OBSERVE PATIENT, WITH NOTIFICATION TO THE PHYSICIAN IF SATURATION IS 90% IN THE ABSENCE OF MORE SPECIFIC PARAMETERS FROM THE PHYSICIAN. AGENCY MAY PERFORM A RESUMPTION OF CARE VISIT FOLLOWING ANY HOSPITAL ADMISSION. RN/HIDE AND SKIN COLERER/STRATEGIC ADVISOR TO MONITOR CO-MORBID CONDITIONS LISTED ON THE PLAN OF CARE AND ANY NEW CONDITIONS THAT PRESENT THEMSELVES DURING THIS EPISODE TO IDENTIFY CHANGES AND INTERVENE TO MINIMIZE COMPLICATIONS. [code = RN TO OBSERVE, ASSESS, EVALUATE, AND DEVELOP AN INDIVIDUALIZED PLAN OF CARE. AGENCY MAY ACCEPT ORDERS FROM CONSULTING PHYSICIANS. RN TO OBSERVE AND ASSESS, HIDE AND SKIN COLERER/STRATEGIC ADVISOR TO OBSERVE FOR RISK FOR FALLS AND INSTRUCT IN FALL PREVENTION, HOME SAFETY, MEDICATION MANAGEMENT, INFECTION PREVENTION, AND NUTRITION MANAGEMENT. RN/HIDE AND SKIN COLERER/STRATEGIC ADVISOR NURSE MAY PERFORM O2 SATURATION LEVEL ON ADMISSION AND PRN FOR RN TO ASSESS/HIDE AND SKIN COLERER TO OBSERVE PATIENT, WITH NOTIFICATION TO THE PHYSICIAN IF SATURATION IS 90% IN THE ABSENCE OF MORE SPECIFIC PARAMETERS FROM THE PHYSICIAN. AGENCY MAY PERFORM A RESUMPTION OF CARE VISIT FOLLOWING ANY HOSPITAL ADMISSION. RN/HIDE AND SKIN COLERER/STRATEGIC ADVISOR TO MONITOR CO-MORBID CONDITIONS LISTED ON THE PLAN OF CARE AND ANY NEW CONDITIONS THAT PRESENT THEMSELVES DURING THIS EPISODE TO IDENTIFY CHANGES AND INTERVENE TO MINIMIZE COMPLICATIONS.] Future Scheduled Test MEDICATION MANAGEMENT; RN/HIDE AND SKIN COLERER/STRATEGIC ADVISOR TO REVIEW MEDICATIONS FOR INTERACTIONS, EFFECTIVENESS OF DRUG THERAPY, AND SIGNS/SYMPTOMS OF ADVERSE REACTIONS. MAY INSTRUCT AND REINFORCE MEDICATION TEACHING RELATED TO THE USE OF MEDICATIONS, DOSAGE, FREQUENCY, PURPOSE, SIDE EFFECTS, AND TO REPORT COMPLICATIONS. [code = MEDICATION MANAGEMENT; RN/HIDE AND SKIN COLERER/STRATEGIC ADVISOR TO REVIEW MEDICATIONS FOR INTERACTIONS, EFFECTIVENESS OF DRUG THERAPY, AND SIGNS/SYMPTOMS OF ADVERSE REACTIONS. MAY INSTRUCT AND REINFORCE MEDICATION TEACHING RELATED TO THE USE OF MEDICATIONS, DOSAGE, FREQUENCY, PURPOSE, SIDE EFFECTS, AND TO REPORT COMPLICATIONS.] Future Scheduled Test RISK FOR H OSPITALIZATION; RN TO ASSESS/TEACH, STRATEGIC ADVISOR/HIDE AND SKIN COLERER TO OBSERVE/TEACH PATIENT/CAREGIVER ON RISK FOR HOSPITALIZATION/EMERGENCY ROOM VISITS, TEACH SIGNS AND SYMPTOMS THAT PUT PATIENT AT RISK, WHEN TO NOTIFY NURSE/PHYSICIAN OF COMPLICATIONS/DECLINE, AND WHEN TO CALL 911. [code = RISK FOR HOSPITALIZATION; RN TO ASSESS/TEACH, STRATEGIC ADVISOR/HIDE AND SKIN COLERER TO OBSERVE/TEACH PATIENT/CAREGIVER ON RISK FOR HOSPITALIZATION/EMERGENCY ROOM VISITS, TEACH SIGNS AND SYMPTOMS THAT PUT PATIENT AT RISK, WHEN TO NOTIFY NURSE/PHYSICIAN OF COMPLICATIONS/DECLINE, AND WHEN TO CALL 911.] Future Scheduled Test CARDIOVASC ULAR SYSTEM; RN TO ASSESS/TEACH, HIDE AND SKIN COLERER/STRATEGIC ADVISOR TO OBSERVE/TEACH RELATED TO ALTERED CARDIOVASCULAR STATUS TO MINIMIZE COMPLICATIONS AND REDUCE HOSPITALIZATION. [code = CARDIOVASCULAR SYSTEM; RN TO ASSESS/TEACH, HIDE AND SKIN COLERER/STRATEGIC ADVISOR TO OBSERVE/TEACH RELATED TO ALTERED CARDIOVASCULAR STATUS TO MINIMIZE COMPLICATIONS AND REDUCE HOSPITALIZATION.] Future Scheduled Test HEART FAIL URE; RN TO ASSESS/TEACH, HIDE AND SKIN COLERER/STRATEGIC ADVISOR TO OBSERVE/TEACH CARDIOPULMONARY SYSTEM TO IDENTIFY SIGNS OF DECOMPENSATION AND INTERVENE TO MINIMIZE THE SEVERITY OF FLUID OVERLOAD. OBSERVE PATIENT ABILITY TO MONITOR AND RECORD DAILY WEIGHTS AND VITAL SIGNS, INCLUDING PULSE AND BLOOD PRESSURE; RECORD PATIENT REPORTED WEIGHT, OR WEIGH PATIENT NEEDED. REPORT INCREASED EDEMA OR WEIGHT GAIN OF >2 LBS IN 1 DAY OR >5 LBS IN 1 WEEK OR 5LBS OR MORE OVER TARGET WEIGHT. MAY MEASURE ABDOMINAL GIRTH IF UNABLE TO WEIGH. SCALE TO BE PROVIDED. [code = HEART FAILURE; RN TO ASSESS/TEACH, HIDE AND SKIN COLERER/STRATEGIC ADVISOR TO OBSERVE/TEACH CARDIOPULMONARY SYSTEM TO IDENTIFY SIGNS OF DECOMPENSATION AND INTERVENE TO MINIMIZE THE SEVERITY OF FLUID OVERLOAD. OBSERVE PATIENT ABILITY TO MONITOR AND RECORD DAILY WEIGHTS AND VITAL SIGNS, INCLUDING PULSE AND BLOOD PRESSURE; RECORD PATIENT REPORTED WEIGHT, OR WEIGH PATIENT NEEDED. REPORT INCREASED EDEMA OR WEIGHT GAIN OF >2 LBS IN 1 DAY OR >5 LBS IN 1 WEEK OR 5LBS OR MORE OVER TARGET WEIGHT. MAY MEASURE ABDOMINAL GIRTH IF UNABLE TO WEIGH. SCALE TO BE PROVIDED.] Future Scheduled Test ARRHYTHMIA MANAGEMENT; RN TO ASSESS AND TEACH, HIDE AND SKIN COLERER/STRATEGIC ADVISOR TO OBSERVE AND TEACH WARNING SIGNS AND SYMPTOMS TO AVOID HOSPITALIZATION. [code = ARRHYTHMIA MANAGEMENT; RN TO ASSESS AND TEACH, HIDE AND SKIN COLERER/STRATEGIC ADVISOR TO OBSERVE AND TEACH WARNING SIGNS AND SYMPTOMS TO AVOID HOSPITALIZATION.] Future Scheduled Test SKIN INTEG RITY RN TO ASSESS AND TEACH, HIDE AND SKIN COLERER/STRATEGIC ADVISOR TO OBSERVE AND TEACH INTEGUMENTARY STATUS TO IDENTIFY CHANGES AND INTERVENE TO MINIMIZE COMPLICATIONS. PROVIDE SKILLED TEACHING OF GENERAL WOUND AND SKIN CARE AND PREVENTION RELATED TO ACTUAL ALTERED SKIN INTEGRITY [code = SKIN INTEGRITY RN TO ASSESS AND TEACH, HIDE AND SKIN COLERER/STRATEGIC ADVISOR TO OBSERVE AND TEACH INTEGUMENTARY STATUS TO IDENTIFY CHANGES AND INTERVENE TO MINIMIZE COMPLICATIONS. PROVIDE SKILLED TEACHING OF GENERAL WOUND AND SKIN CARE AND PREVENTION RELATED TO ACTUAL ALTERED SKIN INTEGRITY ] Future Scheduled Test PAIN MANAG EMENT; RN TO ASSESS AND TEACH, STRATEGIC ADVISOR/HIDE AND SKIN COLERER TO OBSERVE AND TEACH AND PROVIDE EDUCATION ON PAIN MANAGEMENT TECHNIQUES. [code = PAIN MANAGEMENT; RN TO ASSESS AND TEACH, STRATEGIC ADVISOR/HIDE AND SKIN COLERER TO OBSERVE AND TEACH AND PROVIDE EDUCATION ON PAIN MANAGEMENT TECHNIQUES.] Future Scheduled Test FALL REDUC TION MANAGEMENT; RN TO ASSESS AND OBSERVE, HIDE AND SKIN COLERER/STRATEGIC ADVISOR TO OBSERVE FALL RISK FACTORS AND EDUCATE PATIENT/CAREGIVER ON STRATEGIES TO MINIMIZE THE RISK OF FALLING. [code = FALL REDUCTION MANAGEMENT; RN TO ASSESS AND OBSERVE, HIDE AND SKIN COLERER/STRATEGIC ADVISOR TO OBSERVE FALL RISK FACTORS AND EDUCATE PATIENT/CAREGIVER ON STRATEGIES TO MINIMIZE THE RISK OF FALLING.] Future Scheduled Test OCCUPATION AL THERAPIST TO EVALUATE FOR LEFT SHOULDER PAIN [code = OCCUPATIONAL THERAPIST TO EVALUATE FOR LEFT SHOULDER PAIN] Goal Patient Goal - CONTROL HEART FAILURE Goal Provider Goal - A PLAN OF CARE WILL BE ESTABLISHED THAT MEETS THE PATIENTS NEEDS. PATIENT WILL DEMONSTRATE OXYGEN SATURATION WITHIN NORMAL LIMITS OR PATIENTS OPTIMAL LEVEL ESTABLISHED BY THE PHYSICIAN THROUGHOUT CARE. CHANGES TO CO-MORBID CONDITIONS AND ANY NEW CONDITIONS WILL BE IDENTIFIED AND REPORTED TO THE PHYSICIAN. Goal Provider Goal - PATIENT / CAREGIVER WILL PROMPTLY REPORT SIGNS AND SYMPTOMS OF BLEEDING OR ADVERSE REACTIONS TO THE PHYSICIAN. PATIENT/CAREGIVER WILL VERBALIZE UNDERSTANDING OF ANTITHROMBOTIC THERAPY MANAGEMENT BY END OF EPISODE. Goal Provider Goal - PATIENT/CAREGIVER WILL VERBALIZE [...] AN ABILITY TO ADHERE TO SELF-MANAGEMENT OF HF TO MINIMIZE COMPLICATIONS AND AVOID HOSPITALIZATION BY [...] CHANGES BY EOE Goal Provider Goal - Encounters Start Date/Time End Date/Time Encounter Type Admission Type Attending [facility] Care Department Encounter ID Discharge Date Discharge Status Discharge Condition Discharge Reason Percent Goals Met 2024-08-24 00:00:00 2024-10-22 00:00:00 Outpatient [address] [facility] [id number] 100.00
--- OUTSIDE RECORDS SUMMARY | 2024-08-26 19:02 | XMS_ITS | Encounter Summary ---
Author Organization [facility] Address [address] [place] [address] Care Team Providers Care Batch Mixing Truck Driver Name Role Phone Ghassan Burciaga MD Primary Care Provider Unavail able Pierre Arevalo MD Primary Care Provider Judy vailable Gerson Dawson MD Primary Care Provider Unavail able [facility], Pcp Primary Care Provider Unavailabl e Coleman Mccarthy MD Primary Care Provider Unavaila Ayo Demarco MD Primary Care Provider [phone] Annalee Jones MD Primary Care Provider Un available Pascual Nicholasabela DO Primary Care Pro vider Unavailable Anuj Priest DO Primary Care Provider Judy vailable [facility], Pcp Primary Care Provider Unavailabl e Encounter Details Date Type Department Care Team Description 10/28/2011 Lead Warehouse Associate Report Medical Records [address] [place] [id number] Nhan Herbert MD Social History Tobacco Use [...] on filedocumented in this encounter Care Teams Batch Mixing Truck Driver Relationship Specialty Start Date End Date Ghassan Burciaga MD PCP - General 07/24/00 05/06/13 Pierre Arevalo MD PCP - General Internal Medicine 05/07/13 4 Gerson Dawson MD PCP - General Internal Medicine 01/30/14 03/20/14 [facility], [facility]cp PCP - General Internal Medicine 03/21/14 05/06/14 Coleman Mccarthy MD PCP - General Internal Medicine 05/07/14 07/18/16 Ayo Carpio MD [address] [place], [place] [id number] PCP - General Internal Medicine 07/19/16 01/05/17 Annalee Jones MD [address] [place], [place] [id number] PCP - General Internal Medicine 01/06/17 12/02/18 Yolande Nicholas DO [address] [place] [address] PCP - General Internal Medicine 12/03/18 10/08/20 Anuj Priest DO [address] [place] [address] PCP - General Internal Medicine 10/09/20 06/16/21 [facility], Pcp PCP - General Internal Medicine 06/17/21 documented as of this encounter
--- OUTSIDE RECORDS SUMMARY | 2024-08-26 19:02 | XMS_ITS | Encounter Summary ---
Author Organization [facility] Address [address] [place] [address] Care Team Providers Care Crematory Attendant Name Role Phone Yolande Nicholas DO Primary Care Pro vider Unavailable Anuj Priest DO Primary Care Provider [facility], Pcp Primary Care Provider Unavailabl e Reason for Visit * Reason Onset Date Comments VNA Call 09/16/2019 Encounter Details Date Type Department Care Team Description 09/16/2019 Telephone Internal Medicine - [address], [address] [place], [place] [id number] Alana Stinson MD [address] [place] [phone] VNA Call Social History Tobacco Use [...] VNA CALL Which [facility] office is calling? [facility] Full name of caller: Kalie [...] on filedocumented in this encounter Care Teams Crematory Attendant Relationship Specialty Start Date End Date Yolande Nicholas DO PCP - General Internal Medicine 12/03/18 10/08/20 Anuj Priest DO PCP - General Internal Medicine 10/09/20 2 [facility], Pcp PCP - General Internal Medicine 06/17/21 documented as of this encounter
--- OUTSIDE RECORDS SUMMARY | 2024-08-26 19:03 | XMS_ITS | Encounter Summary ---
Author Organization [facility] Address [address] [place] [address] Care Team Providers Care Hospital Education Coordinator Name Role Phone Yolande Nicholas DO Primary Care Pro vider Unavailable Anuj Priest DO Primary Care Provider [facility], Pcp Primary Care Provider Unavailabl e Reason for Visit * Reason Onset Date Comments Faxed Order 02/14/2020 Encounter Details Date Type Department Care Team Description 02/14/2020 Telephone Adult Medicine [address] [address] Yolande Nicholas DO Faxed Order Social History [...] filedocumented in this encounter Care Teams Hospital Education Coordinator Relationship Specialty Start Date End Date Yolande Nicholas DO PCP - General Internal Medicine 12/03/18 10/08/20 Anuj Priest DO PCP - General Internal Medicine 10/09/[address] [place] [address], Pcp PCP - General Internal Medicine 06/17/21 documented as of this encounter
--- OUTSIDE RECORDS SUMMARY | 2024-08-26 19:03 | XMS_ITS | Encounter Summary ---
Author Organization [facility] Address [address] [place] [address] Care Team Providers Care [employer] Executive Director Name Role Phone Yolande Nicholas DO Primary Care Pro vider Unavailable Anuj Priest DO Primary Care Provider [facility], Pcp Primary Care Provider Unavailabl e Reason for Visit * Reason Onset Date Comments Faxed Refill 08/13/2020 Melatonin 3 MG T ab Encounter Details Date Type Department Care Team Description 08/13/2020 Telephone Adult [address] [address] Yolande Nicholas DO Faxed Refill (Melatonin 3 [...] last prescribed in 2016. Called pt at [phone], phone continuously busy. * Telephone Encounter - hCristel Gamez - 08/13/2020 8:44 AM EDT Patient [...] MED LIST AND IS IDENTIFIED BELOW): {MED LIST:47167) Med name: Melatonin 3 MG Tab Dosage: 3 mg tab # of tablets: Local pharmacy with request for 30 -day supply Instructions: Take one tablet by mouth daily at bedtime for sleep Did you check the pharmacy information above?: YES Patients current insurance carrier: [facility]: [facility] / Plan: MEDICARE FFS $0 KARI MESA [id number] / Product Type: MEDICARE [id number] documented in this encounter Plan of Treatment Not on file documented as of this encounter Visit Diagnoses Not on filedocumented in this encounter Care Teams [employer] Executive Director Relationship Specialty Start Date End Date Yolande Nicholas DO PCP - General Internal Medicine 12/03/18 10/08/20 Anuj Priest DO PCP - General Internal Medicine 10/09/20 2 [facility], Pcp PCP - General Internal Medicine 06/17/21 documented as of this encounter
--- OUTSIDE RECORDS SUMMARY | 2024-08-26 19:03 | XMS_ITS | Encounter Summary ---
Author Organization [facility] Address [address] [place] [address] Care Team Providers Care Pre Billing Specialist Name Role Phone Annalee Jones MD Primary Care Provider Un available Yolande Nicholas DO Primary Care Pro vider Unavailable Anuj Priest DO Primary Care Provider Judy vailable [facility], Pcp Primary Care Provider Unavailabl e Encounter Details Date Type Department Care Team Description 08/24/2017 Release of Information Medical Records [address] [place] [id number] Abstract, Provider Social History Tobacco Use Types [...] on filedocumented in this encounter Care Teams Pre Billing Specialist Relationship Specialty Start Date End Date Annalee Jones MD PCP - General Internal Medicine 01/06/17 9 Yolande Nicholas DO PCP - General Internal Medicine 12/03/18 10/08/20 Anuj Priest DO PCP - General Internal Medicine 10/09/20 2 [facility], Pcp PCP - General Internal Medicine 06/17/21 documented as of this encounter
--- OUTSIDE RECORDS SUMMARY | 2024-08-26 19:03 | XMS_ITS | Encounter Summary ---
Author [facility] Address [address] [place] [address] Care Team Providers Care Wire Drawing Machine Operator Name Role Phone Yolande Nicholas DO Primary Care Pro vider Unavailable Anuj Priest DO Primary Care Provider Judy Gardner, Pcp Primary Care Provider Unavailabl e Encounter Details Date Type Department Care Team Description 12/26/2019 Hospital Medical Records [address] [place] [address] Social History Tobacco Use Types Packs/Day Years [...] on filedocumented in this encounter Care Teams Wire Drawing Machine Operator Relationship Specialty Start Date End Date Yolande Nicholas DO PCP - General Internal Medicine 12/03/18 10/08/20 Anuj Priest DO PCP - General Internal Medicine 10/09/20 2 Jose G Gardner PCP - General Internal Medicine 06/17/21 documented as of this encounter
--- OUTSIDE RECORDS SUMMARY | 2024-08-26 19:03 | XMS_ITS | Encounter Summary ---
Author Organization [employer] [facility] Address [address] [place] [address] Care Team Providers Care Machine Filler Name Role Phone Ayo Carpio MD Primary Care Provider [phone] Annalee Jones MD Primary Care Provider Un available Yolande Nicholas DO Primary Care Pro vider Unavailable Anuj Priest DO Primary Care Provider Judy [facility], Pcp Primary Care Provider Unavailabl e Encounter Details Date Type Department Care Team Description 10/19/2016 Orders Only Adult Medicine [address] [phone] Ayo Carpio MD [address] [place] [address] [phone] Lung nodule (Primary Dx) Social History Tobacco [...] nodule documented in this encounter Care Teams Machine Filler Relationship Specialty Start Date End Date Ayo Carpio MD [address] [place] [address] [phone] PCP - General Internal Medicine 07/19/16 01/05/17 Annalee Jones MD [address] [place] [address] 19674 PCP - General Internal Medicine 01/06/17 12/02/18 Yolande Nicholas, [address] [place] [address] 10764 PCP - General Internal Medicine 12/03/18 10/08/20 Anuj Priest DO [address] [place] [address] 36784 PCP - General Internal Medicine 10/09/20 06/16/21 Pending Sale To [facility], Pcp [address] [place] [address] [phone] PCP - General Internal Medicine 06/17/21 documented as of this encounter
--- OUTSIDE RECORDS SUMMARY | 2024-08-26 19:03 | XMS_ITS | Encounter Summary ---
Author Organization [employer] Address [address] [facility] 7t [place] [address] Care Team Providers Care Casting Chipper Name Role Phone Sesar Pereyra MD Primary Care Provider [phone] Encounter Details Date Type Department Care Team (Late st Contact Info) Description 08/26/2024 Orders Only GENERIC EXTERNAL DATA DEPARTMENT Provider, [...] Encounters Date Type Department Care Team ([facility] st Contact Info) Description 09/11/2024 10:30 AM EDT Office Visit [facility] CHC MED & PEDS [address] [place] [address] Sesar Pereyra MD [address] [place], [place] [phone] documented as of this encounter Procedures Procedure Name Priority Date/Time Associated Diagnosis Comments HOLD LAVENDER - POSSIBLE HEMATOLOGY Routine 08/26/2024 5:28 PM EDT B TYPE NATRIURETIC PEPTIDE (BNP) Routine 08/26/2024 5:16 PM EDT LACTIC ACID Routine 08/26/2024 5:10 PM EDT CBC WITH AUTO DIFFERENTIAL Routine 08/26/2024 1:18 PM EDT SARS COV2/INFLUENZA A/B AND RSV RNA QL NAAT Routine 08/26/2024 1:17 PM EDT MAGNESIUM Routine 08/26/2024 1:17 PM EDT LIPASE Routine 08/26/2024 1:17 PM EDT COMPREHENSIVE METABOLIC PANEL Routine 08/26/2024 1:17 PM EDT documented in this encounter Results * Hold Lavender - Possible Hematology (08/26/2024 5:28 PM EDT) Hold Lavender - Possible Hematololgy SEE NOTE [facility] Comment:Specimen will be hel d untested for 8 hours. Call Hematologyif testing is desired. 08/26/2024 5:28 PM EDT 08/26/2024 5:34 PM EDT Generic External Data Provider HISTORICAL/NON OR DERABLE LABS Final Result Performing Organization Address [facility] Co de Phone Number [facility] [address] [place] [phone] * (ABNORMAL) B Type Natriuretic Peptide (BNP) (08/26/2024 5:16 PM EDT) [facility] B Type Natriuretic Peptide 379(H) <100 pg/mL [facility] 08/26/2024 5:16 PM EDT 08/26/2024 5:18 PM EDT Generic External Data Provider LAB BLOOD ORDERAB LES Final Result Performing Organization Address [facility] Co de Phone Number [facility] [address] [place] [address] [phone] Lactic Acid (08/26/2024 5:10 PM EDT) [facility] Lactic Acid 1.2 0.5 - 2.0 mmol/L [facility] 08/26/2024 5:10 PM EDT 08/26/2024 5:15 PM EDT Generic External Data Provider LAB BLOOD ORDERAB LES Final Result Performing Organization Address [facility] de Phone Number [facility] [address] [place] [address] [phone] * (ABNORMAL) CBC auto differential (08/26/2024 1:18 PM EDT) White Blood Count 12.2(H) 4.8 - 10.8 X10*3/uL [facility] Red Blood Count 4.34(L) 4.60 - 5.80 X10*6/uL [facility] Hemoglobin 13.5(L) 14.0 - 18.0 g/dl [facility] Hematocrit 41.5(L) 42.0 - 52.0 % [facility] Mean Corpuscular Volume 95.6 80.0 - 98.0 fL [facility] Mean Corpuscular Hemoglobin 31.1 27.0 - 33.0 pg [facility] Mean Corpuscular HGB Conc 32.5 31.0 - 36.0 g/dl [facility] Red Cell Distribution Width 15.9 11.0 - 16.0 % [facility] Platelet Count 255 160 - 400 X10*3/uL [facility] Mean Platelet Volume 10.2 9.4 - 12.4 fL [facility] Neutrophils Percent Auto 88.1(H) 45 - 73 % [facility] Imm Gran Pct Auto 0.4 0.0 - 0.4 % [facility] Lymphocytes Percent Auto 3.6(L) 20 - 40 % [facility] Monocytes Percent Auto 7.6 2 - 11 % [facility] Eosinophils Percent Auto 0.0 0 - 4 % [facility] Basophils Percent Auto 0.3 0 - 2 % [facility] NRBC Pct Auto 0.0 0.0 - 0.2 /100WBC [facility] Neutrophils Absolute Auto 10.7(H) 2.0 - 8.3 x10*3/uL [facility] Imm Gran Abs Auto 0.05(H) 0.00 - 0.03 X10*3/uL [facility] Lymphocytes Absolute Auto 0.4(L) 1.2 - 4.9 X10*3/uL [facility] Monocytes Absolute Auto 0.9 0.1 - 1.2 X10*3/uL [facility] Eosinophils Absolute Auto 0.0 0.0 - 0.4 X10*3/uL [facility] Basophils Absolute Auto 0.0 0.0 - 0.2 X10*3/uL [facility] NRBC Abs Auto 0.000 0.0 - 0.012 X10*3/uL [facility] 08/26/2024 1:18 PM EDT 08/26/2024 1:21 PM EDT Generic External Data Provider LAB BLOOD ORDERAB LES Final Result Performing Organization Address [facility]/ZIP Co de Phone Number [facility] [address] [place] [phone] * Magnesium (08/26/2024 1:17 PM EDT) Pathologist [facility] Magnesium 1.9 1.6 - 2.6 mg/dL [facility] 08/26/2024 1:17 PM EDT 08/26/2024 1:21 PM EDT Generic External Data Provider LAB BLOOD ORDERAB LES Final Result Performing Organization Address [facility] de Phone Number [facility] [address] [place] [address] [phone] SARS-CoV-2 RNA, Influenza A/B, and RSV RNA, Ql NAAT (08/26/2024 1:17 PM EDT) [facility] Influenza A PCR NEGATIVE Negative [facility] Influenza B PCR NEGATIVE Negative [facility] Resp Syncy Virus RNA Qual PCR NEGATIVE Negative [facility] SARS COV2 PCR NEGATIVE Negative [facility] Comment:All test results mus t be correlated with clinical findings.Negative results do not preclude SARS-CoV2, influenza Avirus, influenza B virus and/or RSV infectionand should not be used as the sole basis for treatment orother patient management decisions. Negative results must becombined with clinical observations, patient history, andepidemiological information.This test has not been evaluated for monitoring treatment ofinfection.This test has been authorized by the FDA under an EmergencyUse Authorization (EUA) for use by authorized laboratories.Testing performed on the [employer] GeneXpert utilizingreal-time RT-PCR.All SARS CoV2 and positive influenza A/B results arereported to [facility]. 08/26/2024 1:17 PM EDT 08/26/2024 1:21 PM EDT Generic External Data Provider LAB MICROBIOLOGY - GENERAL ORDERABLES Final Result Performing Organization Address [facility]/ZIP Co de Phone Number [facility] [address] [place] [address] [phone] Lipase (08/26/2024 1:17 PM EDT) Pathologist [facility] Lipase 9 8 - 78 U/L [facility] 08/26/2024 1:17 PM EDT 08/26/2024 1:21 PM EDT Generic External Data Provider LAB BLOOD ORDERAB LES Final Result Performing Organization Address [facility] Co de Phone Number [facility] [address] [place] [address] [phone] * (ABNORMAL) Comprehensive Metabolic Panel (08/26/2024 1:17 PM EDT) Pathologist [facility] Sodium 135 135 - 145 mmol/L [facility] Potassium 4.5 3.3 - 5.1 mmol/L [facility] Comment:Slight Hemolysis.Int erpret result with caution. Chloride 106 96 - 108 mmol/L [facility] Carbon Dioxide 19(L) 22 - 29 mmol/L [facility] Anion Gap 15 12 - 20 [facility] Urea Nitrogen (BUN) 20(H) 9 - 16 mg/dL [facility] Creatinine, Serum 1.16 0.5 - 1.4 mg/dL [facility] Creatinine Clr Calc Pharmacy 68.8 [facility] Comment:eGFR (calculated fro m the MDRD study equation) and eCrCl(calculated from the Cockcroft-Gault equation) are based ondifferent parameters and may not yield comparable results.If eCrCl result is absurd, please check patient'sheight/weight. Estimated Glomerular Filt Rate >60 [facility] Comment:Chronic Kidney Disea se: Estimated GFR < 60 mL/min/1.80e5Nwlaeh Kidney Disease: Estimated GFR < 15 mL/min/1.73m2 Glucose 97 60 - 115 mg/dL [facility] Calcium 9.2 8.4 - 10.2 mg/dL [facility] Bilirubin, Total 0.7 0.0 - 1.0 mg/dL [facility] Aspartate Amino Transferase 27 5 - 37 U/L [facility] Comment:Slight Hemolysis.Int erpret result with caution. Alanine Aminotransferase 11 0 - 40 U/L [facility] Total Protein 7.0 6.5 - 8.0 g/dL [facility] Albumin Level 4.0 3.5 - 5.0 g/dL [facility] Alkaline Phosphatase 111 39 - 117 U/L [facility] 08/26/2024 1:17 PM EDT 08/26/2024 1:21 PM EDT us Generic External Data Provider LAB BLOOD ORDERAB LES Final Result [facility] [address] [place] [phone] documented in this encounter Visit Diagnoses Not on filedocumented in this encounter Additional Health Concerns Assessment Noted Time PHQ-9 Depression Total Score: 6 07/25/19 25 3:22 PM EDT documented as of this encounter Care Teams Casting Chipper Relationship Specialty Start Date End Date Sesar Pereyra MD [address] [place] [phone] PCP - General Internal Medicine [facility] documented as of this encounter
--- OUTSIDE RECORDS SUMMARY | 2024-08-26 19:03 | XMS_ITS | Encounter Summary ---
Author Organization [employer] Address [address] [facility] 7[address] [place] [address] Care Team Providers Care Novelties Sales Representative Name Role Phone Sesar Pereyra MD Primary Care Provider [phone] Encounter Details Date Type Department Care Team ([facility] Contact Info) Description 07/10/2024 Telephone [facility] CHC MED & PEDS [address] [place], [place] [phone] Sesar Pereyra MD [address] [place] [address] Social History Tobacco Use Types Packs/Day Years [...] tablet was sent to the incorrect pharmacy. [facility] requested a transfer but was til to contact pcp office . Preferred pharmacy [facility] [address] Pt [facility] has been without meds. documented in this encounter Plan of Treatment Upcoming Encounters Date Type Department Care Team ([facility] st Contact Info) Description 09/11/2024 10:30 AM EDT Office Visit [facility] CHC MED & PEDS [address] [place] [address] Sesar Pereyra MD [address] [place] [address] documented as of this encounter Visit Diagnoses Not on filedocumented in this encounter Additional Health Concerns Assessment Noted Time PHQ-9 Depression Total Score: 16 024 10:59 AM EDT documented as of this encounter Care Teams Novelties Sales Representative Relationship Specialty Start Date End Date Sesar Pereyra MD [address] [place] [address] PCP - General Internal Medicine 03/01/21 [facility] 03/22/24 documented as of this encounter
--- OUTSIDE RECORDS SUMMARY | 2024-08-26 19:03 | XMS_ITS | Encounter Summary ---
Author Organization [employer] Address [address] [facility] 7t [place] [address] Care Team Providers Care Live Out Nanny Name Role Phone Sesar Pereyra MD Primary Care Provider [phone] Encounter Details Date Type Department Care Team (Late st Contact Info) Description 04/02/2024 Orders Only [facility] [address] [place] [address] Provider, MD Jazmyn Social History Tobacco Use [...] [facility] [address] [place] [address] Sesar Pereyra MD [address] [place] [address] documented as of this encounter Procedures Procedure [...] documented as of this encounter Care Teams Live Out Nanny Relationship Specialty Start Date End Date Sesar Pereyra MD [address] [place] [address] PCP - General Internal Medicine [facility]01[facility] documented as of this encounter
--- OUTSIDE RECORDS SUMMARY | 2024-08-26 19:03 | XMS_ITS | Encounter Summary ---
Author Organization [employer] Address [address] [facility] [address] [place] [address] Care Team Providers Care Cras Name Role Phone Sesar Pereyra MD Primary Care Provider [phone] Encounter Details Date Type Department Care Team (Late st Contact Info) Description 06/24/2024 Orders Only [facility] MEDICINE [address] [place] [address] Sesar Pereyra MD [address] [place] [address] Paroxysmal atrial fibrillation (CMS/HCC) (Primary Dx) Social [...] Encounters Date Type Department Care Team ([facility] st Contact Info) Description 09/11/2024 10:30 AM EDT Office Visit [facility] MED & PEDS [address] [place] [address] Sesar Pereyra MD [address] [place] [address] documented as of this encounter Visit Diagnoses Diagnosis Paroxysmal atrial fibrillation (CMS/HCC)- Primary Atrial fibrillation documented in this encounter Additional Health Concerns Assessment Noted Time PHQ-9 Depression Total Score: 16 024 10:59 AM EDT documented as of this encounter Care Teams Cras Relationship Specialty Start Date End Date Sesar Pereyra MD [address] [place] [address] PCP - General Internal Medicine [facility] documented as of this encounter
--- OUTSIDE RECORDS SUMMARY | 2024-08-26 19:03 | XMS_ITS | Encounter Summary ---
Author Organization [employer] Address [address] [facility] 7t [place] [address] Care Team Providers Care Trans Router Name Role Phone Sesar Pereyra MD Primary Care Provider [phone]- [phone] Reason for Visit * Reason Onset Date Comments Med Refill 04/11/2024 Encounter Details Date Type Department Care Team (Late st Contact Info) Description 04/11/2024 Refill [facility] MEDICINE [address] [place] [address] Natasha Jiang MD [address] [place] [address] Closed nondisplaced fracture of acromial end of [...] [facility] [address] [place] [address] Sesar Pereyra MD [address] [place] [address] documented as of this encounter Visit Diagnoses Diagnosis Closed nondisplaced fracture of acromial end of right clavicle, initial encounter documented in this encounter Additional Health Concerns Assessment Noted Time PHQ-9 Depression Total Score: 16 024 10:59 AM EDT documented as of this encounter Care Teams Trans Router Relationship Specialty Start Date End Date Sesar Pereyra MD [address] [place] [address] PCP - General Internal Medicine [facility] documented as of this encounter
--- OUTSIDE RECORDS SUMMARY | 2024-08-26 19:03 | XMS_ITS | Clinical Summary ---
Author Organization Unknown Care Team Providers Care Chemical Engineer Name Role Phone MARCO RAMIREZ, POOJA Unavailable Unavaileddie GAVIN RN, DAGOBERTO Unavailable Unavailab abraham JIMENEZ PT, COURTNEY Unavailable Unavailable SHERYL HAMMOND, JANETT Unavailable Unavailable Payers Payer Name Policy Type Policy Number Effective Date Expira tion Date [facility] [id number] Problems Condition Name Condition Details Condition Category [...] 2023-05 00:00: 00 05-16 23:59 :00 No [id number] PAIN 15 mg EVERY 6 HOURS NEEDED 15 mg EVERY 6 HOURS NEEDED (route: oral) Med Classific ation: Analgesic , Anti-infl ammatory or Antipyret ic clonazepam 0.5 mg tablet 2023-05 00:00: 00 08-24 00:00 :00 No [id number] ANXIETY 0.5 mg 2 TIMES DAILY 0.5 mg 2 TIMES DAILY (route: oral) Med Classific ation: Central Nervous System Agents lisinopril 40 mg tablet 2023-05 00:00: 00 03-21 23:59 :00 No [id number] CAD 40 mg DAILY 40 mg DAILY (route: oral) Med Classific ation: Cardiovas cular Therapy Agents atorvastati n 80 mg tablet 2023-05 00:00: 00 08-24 00:00 :00 No [id number] HYPERTENSIO N 80 mg DAILY 80 mg DAILY (route: oral) Med Classific ation: Cardiovas cular Therapy Agents cilostazol 50 mg tablet 2023-05 00:00: 00 08-24 00:00 :00 No [id number] HYPERTENSIO N 50 mg 2 TIMES DAILY 50 mg 2 TIMES DAILY (route: oral) Med Classific ation: Hematolog ical Agents clopidogrel 75 mg tablet 2023-05 00:00: 00 03-21 23:59 :00 No [id number] CORONARY ARTERY DISEASE 75 mg DAILY 75 mg DAILY (route: oral) Med Classific ation: Hematolog ical Agents Eliquis 5 mg tablet 2023-05 00:00: 00 08-24 00:00 :00 No [id number] ANTI ARRHYTHMIC 5 mg 2 TIMES DAILY 5 mg 2 TIMES DAILY (route: oral) Med Classific ation: Hematolog ical Agents furosemide 40 mg tablet 2023-05 00:00: 00 03-21 23:59 :00 No [id number] BPH 40 mg DAILY 40 mg DAILY (route: oral) Alternate Route: INTRA-MUS CULAR. Med Classific ation: Cardiovas cular Therapy Agents metoprolol tartrate 50 mg tablet 2023-05 00:00: 00 03-22 23:59 :00 No [id number] CAD 50 mg DAILY 50 mg DAILY (route: oral) Med Classific ation: Cardiovas cular Therapy Agents quetiapine 25 mg tablet 2023-05 00:00: 00 08-24 00:00 :00 No [id number] MOOD STABILIZER 25 mg 2 TIMES DAILY 25 mg 2 TIMES DAILY (route: oral) Med Classific ation: Central Nervous System Agents sertraline 50 mg tablet 2023-05 00:00: 00 08-24 00:00 :00 No [id number] MOOD STABILIZER 50 mg DAILY 50 mg DAILY (route: oral) Med Classific ation: Central Nervous System Agents tamsulosin 0.4 mg capsule 2023-05 00:00: 00 08-24 00:00 :00 No [id number] BPH 0.4 mg DAILY 0.4 mg DAILY (route: oral) Med Classific ation: Genitouri nary Therapy docusate sodium 100 mg tablet 2023-05 00:00: 00 08-24 00:00 :00 No [id number] CONSTIPATIO N 100 mg DAILY 100 mg DAILY (route: oral) Med Classific ation: Gastroint estinal Therapy Agents gabapentin 100 mg capsule 2023-05 00:00: 00 08-24 00:00 :00 No [id number] PAIN 1-3 capsule BEDTIME 1-3 capsule BEDTIME (route: oral) Med Classific ation: Central Nervous System Agents metoprolol tartrate 25 mg tablet 2023-05 00:00: 00 03-27 16:09 :43.1 53 No [id number] HYPERTENSIO N 25 mg 2 TIMES DAILY 25 mg 2 TIMES DAILY (route: oral) Med Classific ation: Cardiovas cular Therapy Agents Multaq 400 mg tablet 2023-05 00:00: 00 08-24 00:00 :00 No [id number] ANTIARRHYTH MICHAEL 400 mg 2 TIMES DAILY 400 mg 2 TIMES DAILY (route: oral) Med Classific ation: Cardiovas cular Therapy Agents furosemide 40 mg tablet 2023-05 00:00: 00 08-24 00:00 :00 No [id number] edema 1 tablet DAILY 1 tablet DAILY (route: oral) Med Classific ation: Cardiovas cular Therapy Agents dextroamphe tamine-amph etamine 7.5 mg tablet 2023-05 00:00: 00 08-24 00:00 :00 No [id number] attention 1 tablet DAILY 1 tablet DAILY (route: oral) Med Classific ation: Central Nervous System Agents metoprolol tartrate 25 mg tablet 2023-05 00:00: 00 06-27 23:59 :00 No [id number] heart rate 0.5 tablet 2 TIMES DAILY 0.5 tablet 2 TIMES DAILY (route: oral) Med Classific ation: Cardiovas cular Therapy Agents cephalexin 500 mg capsule 2023-05 00:00: 00 04-10 23:59 :00 No [id number] CELLULITIS LLL 500 mg 4 TIMES DAILY 500 mg 4 TIMES DAILY (route: oral) Med Classific ation: Anti-Infe ctive Agents hydralazine 25 mg tablet 2023-05 00:00: 00 08-24 00:00 :00 No [id number] HTN 25 mg 2 TIMES DAILY 25 mg 2 TIMES DAILY (route: oral) Med Classific ation: Cardiovas cular Therapy Agents melatonin 3 mg tablet 06-27 00:00: 00 08-24 00:00 :00 No [id number] INSOMNIA 1 tablet BEDTIME 1 tablet BEDTIME (route: oral) Med Classific ation: Central Nervous System Agents metoprolol tartrate 25 mg tablet 06-27 00:00: 00 08-24 00:00 :00 No [id number] HTN 1 tablet DAILY 1 tablet DAILY (route: oral) Med Classific ation: Cardiovas cular Therapy Agents oxycodone 5 mg tablet 06-27 00:00: 00 08-24 00:00 :00 No [id number] PAIN 1 tablet EVERY 8 HOURS 1 tablet EVERY 8 HOURS (route: oral) Med Classific ation: Analgesic , Anti-infl ammatory or Antipyret ic polyethylen e glycol 3350 17 gram/dose oral powder 06-27 00:00: 00 08-24 00:00 :00 No [id number] CONSTIPATIO N 17 gram BEDTIME 17 gram BEDTIME (route: oral) Med Classific ation: Gastroint estinal Therapy Agents Tylenol 8 Hour 650 mg tablet,exte nded release 06-27 00:00: 00 08-24 00:00 :00 No [id number] PAIN/FEVER 1 tablet EVERY 6 HOURS 1 tablet EVERY 6 HOURS (route: oral) Med Classific ation: Analgesic , Anti-infl ammatory or Antipyret ic albuterol sulfate HFA 90 mcg/actuati on aerosol inhaler 16 00:00: 00 08-24 00:00 :00 No [id number] SHORTNESS OF BREATH 2 puff EVERY 4 HOURS 2 puff EVERY 4 HOURS (route: inhalation ) Med Classific ation: Respirato ry Therapy Agents azithromyci n 500 mg tablet 16 00:00: 00 08-24 00:00 :00 No [id number] TREATS PNEUMONIA 500 mg DAILY 500 mg DAILY (route: oral) Med Classific ation: Anti-Infe ctive Agents cefuroxime axetil 500 mg tablet 16 00:00: 00 08-24 00:00 :00 No [id number] ANTIBIOTIC TREATS PNEUMONIA 500 mg DAILY 500 mg DAILY (route: oral) Med Classific ation: Anti-Infe ctive Agents celecoxib 200 mg capsule 08-01 00:00: 00 08-24 00:00 :00 No [id number] PAIN 1 capsule DAILY 1 capsule DAILY [...] CONSULTING PHYSICIANS. RN TO OBSERVE AND ASSESS, RN CLINICAL DOCUMENTATION/CHIEF CHEMIST TO OBSERVE FOR RISK FOR FALLS AND INSTRUCT IN FALL PREVENTION, HOME SAFETY, MEDICATION MANAGEMENT, INFECTION PREVENTION, AND NUTRITION MANAGEMENT. RN/RN CLINICAL DOCUMENTATION/CHIEF CHEMIST NURSE MAY PERFORM O2 SATURATION LEVEL ON ADMISSION AND PRN FOR RN TO ASSESS/RN CLINICAL DOCUMENTATION TO OBSERVE PATIENT, WITH NOTIFICATION TO THE PHYSICIAN IF SATURATION IS 90% IN THE ABSENCE OF MORE SPECIFIC PARAMETERS FROM THE PHYSICIAN. AGENCY MAY PERFORM A RESUMPTION OF CARE VISIT FOLLOWING ANY HOSPITAL ADMISSION. RN/RN CLINICAL DOCUMENTATION/CHIEF CHEMIST TO MONITOR CO-MORBID CONDITIONS LISTED ON THE PLAN OF CARE AND ANY NEW CONDITIONS THAT PRESENT THEMSELVES DURING THIS EPISODE TO IDENTIFY CHANGES AND INTERVENE TO MINIMIZE COMPLICATIONS. [code = RN TO OBSERVE, ASSESS, EVALUATE, AND DEVELOP AN INDIVIDUALIZED PLAN OF CARE. AGENCY MAY ACCEPT ORDERS FROM CONSULTING PHYSICIANS. RN TO OBSERVE AND ASSESS, RN CLINICAL DOCUMENTATION/CHIEF CHEMIST TO OBSERVE FOR RISK FOR FALLS AND INSTRUCT IN FALL PREVENTION, HOME SAFETY, MEDICATION MANAGEMENT, INFECTION PREVENTION, AND NUTRITION MANAGEMENT. RN/RN CLINICAL DOCUMENTATION/CHIEF CHEMIST NURSE MAY PERFORM O2 SATURATION LEVEL ON ADMISSION AND PRN FOR RN TO ASSESS/RN CLINICAL DOCUMENTATION TO OBSERVE PATIENT, WITH NOTIFICATION TO THE PHYSICIAN IF SATURATION IS 90% IN THE ABSENCE OF MORE SPECIFIC PARAMETERS FROM THE PHYSICIAN. AGENCY MAY PERFORM A RESUMPTION OF CARE VISIT FOLLOWING ANY HOSPITAL ADMISSION. RN/RN CLINICAL DOCUMENTATION/CHIEF CHEMIST TO MONITOR CO-MORBID CONDITIONS LISTED ON THE PLAN OF CARE AND ANY NEW CONDITIONS THAT PRESENT THEMSELVES DURING THIS EPISODE TO IDENTIFY CHANGES AND INTERVENE TO MINIMIZE COMPLICATIONS.] Future Scheduled Test MEDICATION MANAGEMENT; RN/RN CLINICAL DOCUMENTATION/CHIEF CHEMIST TO REVIEW MEDICATIONS FOR INTERACTIONS, EFFECTIVENESS OF DRUG THERAPY, AND SIGNS/SYMPTOMS OF ADVERSE REACTIONS. MAY INSTRUCT AND REINFORCE MEDICATION TEACHING RELATED TO THE USE OF MEDICATIONS, DOSAGE, FREQUENCY, PURPOSE, SIDE EFFECTS, AND TO REPORT COMPLICATIONS. [code = MEDICATION MANAGEMENT; RN/RN CLINICAL DOCUMENTATION/CHIEF CHEMIST TO REVIEW MEDICATIONS FOR INTERACTIONS, EFFECTIVENESS OF DRUG THERAPY, AND SIGNS/SYMPTOMS OF ADVERSE REACTIONS. MAY INSTRUCT AND REINFORCE MEDICATION TEACHING RELATED TO THE USE OF MEDICATIONS, DOSAGE, FREQUENCY, PURPOSE, SIDE EFFECTS, AND TO REPORT COMPLICATIONS.] Future Scheduled Test RISK FOR H OSPITALIZATION; RN TO ASSESS/TEACH, CHIEF CHEMIST/RN CLINICAL DOCUMENTATION TO OBSERVE/TEACH PATIENT/CAREGIVER ON RISK FOR HOSPITALIZATION/EMERGENCY ROOM VISITS, TEACH SIGNS AND SYMPTOMS THAT PUT PATIENT AT RISK, WHEN TO NOTIFY NURSE/PHYSICIAN OF COMPLICATIONS/DECLINE, AND WHEN TO CALL 911. [code = RISK FOR HOSPITALIZATION; RN TO ASSESS/TEACH, CHIEF CHEMIST/RN CLINICAL DOCUMENTATION TO OBSERVE/TEACH PATIENT/CAREGIVER ON RISK FOR HOSPITALIZATION/EMERGENCY ROOM VISITS, TEACH SIGNS AND SYMPTOMS THAT PUT PATIENT AT RISK, WHEN TO NOTIFY NURSE/PHYSICIAN OF COMPLICATIONS/DECLINE, AND WHEN TO CALL 911.] Future Scheduled Test CARDIOVASC ULAR SYSTEM; RN TO ASSESS/TEACH, RN CLINICAL DOCUMENTATION/CHIEF CHEMIST TO OBSERVE/TEACH RELATED TO ALTERED CARDIOVASCULAR STATUS TO MINIMIZE COMPLICATIONS AND REDUCE HOSPITALIZATION. [code = CARDIOVASCULAR SYSTEM; RN TO ASSESS/TEACH, RN CLINICAL DOCUMENTATION/CHIEF CHEMIST TO OBSERVE/TEACH RELATED TO ALTERED CARDIOVASCULAR STATUS TO MINIMIZE COMPLICATIONS AND REDUCE HOSPITALIZATION.] Future Scheduled Test HEART FAIL URE; RN TO ASSESS/TEACH, RN CLINICAL DOCUMENTATION/CHIEF CHEMIST TO OBSERVE/TEACH CARDIOPULMONARY SYSTEM TO IDENTIFY SIGNS [...] [code = HEART FAILURE; RN TO ASSESS/TEACH, RN CLINICAL DOCUMENTATION/CHIEF CHEMIST TO OBSERVE/TEACH CARDIOPULMONARY SYSTEM TO IDENTIFY SIGNS [...] ARRHYTHMIA MANAGEMENT; RN TO ASSESS AND TEACH, RN CLINICAL DOCUMENTATION/CHIEF CHEMIST TO OBSERVE AND TEACH WARNING SIGNS AND SYMPTOMS TO AVOID HOSPITALIZATION. [code = ARRHYTHMIA MANAGEMENT; RN TO ASSESS AND TEACH, RN CLINICAL DOCUMENTATION/CHIEF CHEMIST TO OBSERVE AND TEACH WARNING SIGNS AND SYMPTOMS TO AVOID HOSPITALIZATION.] Future Scheduled Test SKIN INTEG RITY RN TO ASSESS AND TEACH, RN CLINICAL DOCUMENTATION/CHIEF CHEMIST TO OBSERVE AND TEACH INTEGUMENTARY STATUS TO IDENTIFY CHANGES AND INTERVENE TO MINIMIZE COMPLICATIONS. PROVIDE SKILLED TEACHING OF GENERAL WOUND AND SKIN CARE AND PREVENTION RELATED TO ACTUAL ALTERED SKIN INTEGRITY [code = SKIN INTEGRITY RN TO ASSESS AND TEACH, RN CLINICAL DOCUMENTATION/CHIEF CHEMIST TO OBSERVE AND TEACH INTEGUMENTARY STATUS TO IDENTIFY CHANGES AND INTERVENE TO MINIMIZE COMPLICATIONS. PROVIDE SKILLED TEACHING OF GENERAL WOUND AND SKIN CARE AND PREVENTION RELATED TO ACTUAL ALTERED SKIN INTEGRITY ] Future Scheduled Test PAIN MANAG EMENT; RN TO ASSESS AND TEACH, CHIEF CHEMIST/RN CLINICAL DOCUMENTATION TO OBSERVE AND TEACH AND PROVIDE EDUCATION ON PAIN MANAGEMENT TECHNIQUES. [code = PAIN MANAGEMENT; RN TO ASSESS AND TEACH, CHIEF CHEMIST/RN CLINICAL DOCUMENTATION TO OBSERVE AND TEACH AND PROVIDE EDUCATION ON PAIN MANAGEMENT TECHNIQUES.] Future Scheduled Test FALL REDUC TION MANAGEMENT; RN TO ASSESS AND OBSERVE, RN CLINICAL DOCUMENTATION/CHIEF CHEMIST TO OBSERVE FALL RISK FACTORS AND EDUCATE PATIENT/CAREGIVER ON STRATEGIES TO MINIMIZE THE RISK OF FALLING. [code = FALL REDUCTION MANAGEMENT; RN TO ASSESS AND OBSERVE, RN CLINICAL DOCUMENTATION/CHIEF CHEMIST TO OBSERVE FALL RISK FACTORS AND EDUCATE [...] End Date/Time Encounter Type Admission Type Attending [facility] Care Department Encounter ID Discharge Date Discharge Status Discharge Condition Discharge Reason Percent Goals Met 2024-08-24 00:00:00 2024-10-22 00:00:00 Outpatient DAGOBERTO MALONE [facility] [id number] 100.00
--- OUTSIDE RECORDS SUMMARY | 2024-08-26 19:03 | XMS_ITS | Encounter Summary ---
Author Organization [facility] Address [address] [place] [address] Care Team Providers Care Clay Pigeon Setter Name Role Phone Yolande Nicholas DO Primary Care Pro vider Unavailable Anuj Priest DO Primary Care Provider [facility], Pcp Primary Care Provider Unavailabl e Reason for Visit * Reason Onset Date Comments VNA Call 01/28/2020 Encounter Details Date Type Department Care Team Description 01/28/2020 Telephone Adult [address] [address] Yolande Nicholas DO VNA Call Social History [...] Kan R.N. - 01/28/2020 8:57 AM EDT [phone] (home) Pt is being seen by surgeons [...] on filedocumented in this encounter Care Teams Clay Pigeon Setter Relationship Specialty Start Date End Date Yolande Nicholas DO PCP - General Internal Medicine 12/03/18 10/08/20 Anuj Priest DO PCP - General Internal Medicine 10/09/[address] [place] [address], Pcp PCP - General Internal Medicine 06/17/21 documented as of this encounter
--- OUTSIDE RECORDS SUMMARY | 2024-08-26 19:03 | XMS_ITS | Encounter Summary ---
Author Organization [facility] Address [address] [place] [address] Care Team Providers Care Case Sealer Name Role Phone Yolande Nicholas DO Primary Care Pro vider Unavailable Anuj Priest DO Primary Care Provider Judy Gardner, Pcp Primary Care Provider Unavailabl e Encounter Details Date Type Department Care Team Description 11/28/2019 Shadow Graph Weight Operator Report Medical Records [address] [place] [address] Cedrick Siddiqui Social History Tobacco Use Types [...] filedocumented in this encounter Care Teams Case Sealer Relationship Specialty Start Date End Date Yolande Nicholas DO PCP - General Internal Medicine 12/03/18 10/08/20 Anuj Priest DO PCP - General Internal Medicine 10/09/20 2 Jj, Pcp PCP - General Internal Medicine 06/17/21 documented as of this encounter
--- OUTSIDE RECORDS SUMMARY | 2024-08-26 19:03 | XMS_ITS | Encounter Summary ---
Author Organization [facility] Address [address] [place] [address] Care Team Providers Care Rickshaw Driver Name Role Phone Yolande Nicholas DO Primary Care Pro vider Unavailable Anuj Priest DO Primary Care Provider [facility], Pcp Primary Care Provider Unavailabl e Reason for Visit * Reason Onset Date Comments Faxed Order 01/03/2020 Encounter Details Date Type Department Care Team Description 01/03/2020 Telephone Adult [address] [address] Yolande Nicholas DO Faxed Order Social History [...] on filedocumented in this encounter Care Teams Rickshaw Driver Relationship Specialty Start Date End Date Yolande Nicholas DO PCP - General Internal Medicine 12/03/18 10/08/20 Anuj Priest DO PCP - General Internal Medicine 10/09/[address] [place] [address], Pcp PCP - General Internal Medicine 06/17/21 documented as of this encounter
--- OUTSIDE RECORDS SUMMARY | 2024-08-26 19:03 | XMS_ITS | Encounter Summary ---
Author Organization [facility] Address [address] [place] [address] Care Team Providers Care Silverware Buffer Name Role Phone Yolande Nicholas DO Primary Care Pro vider Unavailable Anuj Priest DO Primary Care Provider [facility], Pcp Primary Care Provider Unavailabl e Reason for Visit * Reason Onset Date Comments Provider Call Back 01/29/2020 FYI Encounter Details Date Type Department Care Team Description 01/29/[address] [address] Yolande Nicholas DO Provider Call Back (FYI) [...] YES Reason for call back: transporting to [facility] today. Going to ER and hoping tohave him admitted today. Has consultation with Dr Ben Rodriguez, endovascular surgeon on 02-06-20 [place] Caller offered to speak with the nurse for assistance: YES Response: Patient offered to speak with nurse for assistance and patient agreed. Message forwarded to nurse. documented in this encounter Plan of Treatment Not on file documented as of this encounter Visit Diagnoses Not on filedocumented in this encounter Care Teams Silverware Buffer Relationship Specialty Start Date End Date Yolande Nicholas DO PCP - General Internal Medicine 12/03/18 10/08/20 Anuj Priest DO PCP - General Internal Medicine 10/09/[address] [place] [address], Pcp PCP - General Internal Medicine 06/17/21 documented as of this encounter
--- OUTSIDE RECORDS SUMMARY | 2024-08-26 19:03 | XMS_ITS | Encounter Summary ---
Author Organization [employer] Address [address] [facility] [address] [place] [address] Care Team Providers Care Business Account Executive Name Role Phone Sesar Pereyra MD Primary Care Provider [phone] Reason for Visit * Reason Onset Date Comments Medication Question 06/21/2024 Encounter Details Date Type Department Care Team ([facility] st Contact Info) Description 06/21/2024 Telephone [facility] MEDICINE [address] [place] [address] Sesar Pereyra MD [address] [place], [place] [id number] Medication Question Social History Tobacco Use Types [...] to Discontinue the medication. Contact Conrad at [phone] Ext [phone] The Voicemail is private so you are able to Leave a message in there. documented in this encounter Plan of Treatment Upcoming Encounters Date Type Department Care Team (Late st Contact Info) Description 09/11/2024 10:30 AM EDT Office Visit [facility] MED & PEDS [address] [place] [address] Sesar Pereyra MD [address] [place] [address] documented as of this encounter Visit Diagnoses Not on filedocumented in this encounter Additional Health Concerns Assessment Noted Time PHQ-9 Depression Total Score: 16 024 10:59 AM EDT documented as of this encounter Care Teams Business Account Executive Relationship Specialty Start Date End Date Sesar Pereyra MD [address] [place] [id number] PCP - General Internal Medicine [facility] documented as of this encounter
--- OUTSIDE RECORDS SUMMARY | 2024-08-26 19:03 | XMS_ITS | Encounter Summary ---
Author Organization [facility] Address [address] [place] [address] Care Team Providers Care Glass Beveler Name Role Phone Ghassan Burciaga MD Primary Care Provider Unavail able Pierre Arevalo MD Primary Care Provider Jduy vailable Gerson Dawson MD Primary Care Provider Unavail able [facility], Pcp Primary Care Provider Unavailabl e Coleman Mccarthy MD Primary Care Provider Unavaila Ayo Demarco MD Primary Care Provider [phone] Annalee Jones MD Primary Care Provider Un available Pascual Nicholasabela DO Primary Care Pro vider Unavailable Anuj Priest DO Primary Care Provider Judy vailable [facility], Pcp Primary Care Provider Unavailabl e Encounter Details Date Type Department Care Team Description 11/07/2012 Pt. Non Urgent Medic al Question Medicine/Pediatrics - [address] [phone] Ghassan Burciaga MD Social History Tobacco Use [...] MonNov 07, 2012 3:01 PM Subject: prescription [id number] Rohith Leung documented in this encounter Plan of Treatment Not on file documented as of this encounter Visit Diagnoses Not on filedocumented in this encounter Care Teams Glass Beveler Relationship Specialty Start Date End Date Ghassan Burciaga MD PCP - General 07/24/00 05/06/13 Pierre Arevalo MD PCP - General Internal Medicine 05/07/13 4 Gerson Dawson MD PCP - General Internal Medicine 01/30/14 03/20/14 [facility], Pcp PCP - General Internal Medicine 03/21/14 05/06/14 Coleman Mccarthy MD PCP - General Internal Medicine 05/07/14 07/18/16 Ayo Carpio MD [address] [place], [place] [id number] PCP - General Internal Medicine 07/19/16 01/05/17 Annalee Jones MD [address] [place] [address] PCP - General Internal Medicine 01/06/17 12/02/18 Yolande Nicholas, DO [address] [place] [address] PCP - General Internal Medicine 12/03/18 10/08/20 Anuj Priest, [address] [place] [address] PCP - General Internal Medicine 10/09/20 06/16/21 [facility], Pcp PCP - General Internal Medicine 06/17/21 documented as of this encounter
--- OUTSIDE RECORDS SUMMARY | 2024-08-26 19:03 | XMS_ITS | Encounter Summary ---
Author Organization [facility] Address [address] [place] [address] Care Team Providers Care [employer] Worker Name Role Phone Yolande Nicholas DO Primary Care Pro vider Unavailable Anuj Priest DO Primary Care Provider Judy álvarez [facility], Pcp Primary Care Provider Unavailabl e Encounter Details Date Type Department Care Team Description 01/13/2020 Treasury Associate Report Medical Records [address] [place] [address] Carl Rai MD Social History Tobacco Use [...] on filedocumented in this encounter Care Teams [employer] Worker Relationship Specialty Start Date End Date Yolande Nicholas DO PCP - General Internal Medicine 12/03/18 10/08/20 Anuj Priest DO PCP - General Internal Medicine 10/09/20 Jj, Pcp PCP - General Internal Medicine 06/17/21 documented as of this encounter
--- OUTSIDE RECORDS SUMMARY | 2024-08-26 19:03 | XMS_ITS | Encounter Summary ---
Author Organization [employer] Address [address] [facility] [address] [place] [address] Care Team Providers Care Surgery Tech Name Role Phone Sesar Pereyra MD Primary Care Provider [phone] Reason for Visit * Reason Onset Date Comments Med Refill 04/26/2024 Encounter Details Date Type Department Care Team ([facility] st Contact Info) Description 04/26/2024 Telephone [facility] MEDICINE [address] [place] [address] Sesar Pereyra MD [address] [place] [address] Med Refill Social History Tobacco Use Types [...] 7.5 MG tablet To be sent to: [id number] - [place], [place] - [address] [facility] documented in this encounter Plan of Treatment Upcoming Encounters Date Type Department Care Team (Late st Contact Info) Description 09/11/2024 10:30 AM EDT Office Visit [facility] MED & PEDS [address] [place] [address] Sesar Pereyra MD [address] [place] [address] documented as of this encounter Visit Diagnoses Not on filedocumented in this encounter Additional Health Concerns Assessment Noted Time PHQ-9 Depression Total Score: 16 024 10:59 AM EDT documented as of this encounter Care Teams Surgery Tech Relationship Specialty Start Date End Date Sesar Pereyra MD [address] [place] [address] PCP - General Internal Medicine 03/01/21 [facility] 03/22/24 documented as of this encounter
--- OUTSIDE RECORDS SUMMARY | 2024-08-26 19:03 | XMS_ITS | Encounter Summary ---
Author Organization [facility] Address [address] [place] [address] Care Team Providers Care [employer] Principal Name Role Phone Annalee Jones MD Primary Care Provider Un available Yolande Nicholas DO Primary Care Pro vider Unavailable Anuj Priest DO Primary Care Provider Judy vailable [facility], Pcp Primary Care Provider Unavailabl e Encounter Details Date Type Department Care Team Description 02/07/2017 Sheet Metal Smith Report Medical Records [address] [place] [address] Dhruv Garcia MD Social History Tobacco Use [...] on filedocumented in this encounter Care Teams [employer] Principal Relationship Specialty Start Date End Date Annalee Jones MD PCP - General Internal Medicine 01/06/17 9 Yolande Nicholas DO PCP - General Internal Medicine 12/03/18 10/08/20 Anuj Priest DO PCP - General Internal Medicine 10/09/20 2 Jj, Pcp PCP - General Internal Medicine 06/17/21 documented as of this encounter
--- OUTSIDE RECORDS SUMMARY | 2024-08-26 19:03 | XMS_ITS | Encounter Summary ---
Author Organization [facility] Address [address] [place] [address] Care Team Providers Care Putty Mixer And Applier Name Role Phone Yolande Nicholas DO Primary Care Pro vider Unavailable Anuj Priest DO Primary Care Provider Judy álvarez [facility], Pcp Primary Care Provider Unavailabl e Encounter Details Date Type Department Care Team Description 09/07/2020 Sign Painter Apprentice Report Medical Records [address] [place] [address] Dhruv Garcia MD Social History Tobacco Use [...] on filedocumented in this encounter Care Teams Putty Mixer And Applier Relationship Specialty Start Date End Date Yolande Nicholas DO PCP - General Internal Medicine 12/03/18 10/08/20 Anuj Priest DO PCP - General Internal Medicine 10/09/20 Molly Gardner, Pcp PCP - General Internal Medicine 06/17/21 documented as of this encounter
--- OUTSIDE RECORDS SUMMARY | 2024-08-26 19:03 | XMS_ITS | Encounter Summary ---
Author Organization [facility] Address [address] [place] [address] Care Team Providers Care Press Box Custodian Name Role Phone Ghassan Burciaga MD Primary Care Provider Unavail able Pierre Arevalo MD Primary Care Provider Judy vailable Gerson Dawson MD Primary Care Provider Unavail able [facility], Pcp Primary Care Provider Unavailabl e Coleman Mccarthy MD Primary Care Provider Unavaila Ayo Demarco MD Primary Care Provider [phone] Annalee Jones MD Primary Care Provider Un available Pascual Nicholasabela DO Primary Care Pro vider Unavailable Anuj Priest DO Primary Care Provider Judy vailable [facility], Pcp Primary Care Provider Unavailabl e Encounter Details Date Type Department Care Team Description 09/27/2012 Release of Information Medical Records [address] [place] [address] Abstract, Provider Social History Tobacco Use Types [...] filedocumented in this encounter Care Teams Press Box Custodian Relationship Specialty Start Date End Date Ghassan Burciaga MD PCP - General 07/24/00 05/06/13 Pierre Arevalo MD PCP - General Internal Medicine 05/07/13 4 Gerson Dawson MD PCP - General Internal Medicine 01/30/14 03/20/14 [facility], Pcp PCP - General Internal Medicine 03/21/14 05/06/14 Coleman Mccarthy MD PCP - General Internal Medicine 05/07/14 07/18/16 Ayo Carpio MD [address] [place], [place] [id number] PCP - General Internal Medicine 07/19/16 01/05/17 Annalee Jones MD [address] [place], [place] [id number] PCP - General Internal Medicine 01/06/17 12/02/18 Yolande Nicholas DO [address] [place] [address] PCP - General Internal Medicine 12/03/18 10/08/20 Anuj Priest DO [address] [place] [address] PCP - General Internal Medicine 10/09/20 06/16/21 [facility], Pcp PCP - General Internal Medicine 06/17/21 documented as of this encounter
--- OUTSIDE RECORDS SUMMARY | 2024-08-26 19:03 | XMS_ITS | Encounter Summary ---
Author Organization [facility] Address [address] [place] [address] Care Team Providers Care Senior Instructional Designer Name Role Phone Yolande Nicholas DO Primary Care Pro vider Unavailable Anuj Priest DO Primary Care Provider Judy Gardner, Pcp Primary Care Provider Unavailabl e Encounter Details Date Type Department Care Team Description 2020 Hospital Medical Records [address] [place] [address] Abstract, Provider Social History Tobacco Use Types [...] filedocumented in this encounter Care Teams Senior Instructional Designer Relationship Specialty Start Date End Date Yolande Nicholas DO PCP - General Internal Medicine 12/03/18 10/08/20 Anuj Priest DO PCP - General Internal Medicine 10/09/20 2 Jj, Pcp PCP - General Internal Medicine 06/17/21 documented as of this encounter
--- OUTSIDE RECORDS SUMMARY | 2024-08-26 19:03 | XMS_ITS | Encounter Summary ---
Author Organization [facility] Address [address] [place] [address] Care Team Providers Care Order Desk Clerk Name Role Phone Ghassan Burciaga MD Primary Care Provider Unavail able Pierre Arevalo MD Primary Care Provider Judy vailable Gerson Dawson MD Primary Care Provider Unavail able [facility], Pcp Primary Care Provider Unavailabl e Coleman Mccarthy MD Primary Care Provider Unavaila Ayo Demarco MD Primary Care Provider [phone] Annalee Jones MD Primary Care Provider Un available Pascual Nicholasabela DO Primary Care Pro vider Unavailable Anuj Priest DO Primary Care Provider Judy vailable [facility], Pcp Primary Care Provider Unavailabl e Encounter Details Date Type Department Care Team Description 01/16/2007 Hospital Medical Records [address] [place] [address] Tyler Bloom MD Social History Tobacco Use [...] filedocumented in this encounter Care Teams Order Desk Clerk Relationship Specialty Start Date End Date Ghassan Burciaga MD PCP - General 07/24/00 05/06/13 Pierre Arevalo MD PCP - General Internal Medicine 05/07/13 4 Gerson Dawson MD PCP - General Internal Medicine 01/30/14 03/20/14 [facility], Pcp PCP - General Internal Medicine 03/21/14 05/06/14 Coleman Mccarthy MD PCP - General Internal Medicine 05/07/14 07/18/16 Ayo Carpio MD [address] [place], [place] [address] PCP - General Internal Medicine 07/19/16 01/05/17 Annalee Jones MD [address] [place], [place] [address] PCP - General Internal Medicine 01/06/17 12/02/18 Yolande Nicholas, DO [address] [place] [address] PCP - General Internal Medicine 12/03/18 10/08/20 Anuj Priest, [address] [place] [address] PCP - General Internal Medicine 10/09/20 06/16/21 [facility], Pcp PCP - General Internal Medicine 06/17/21 documented as of this encounter
--- OUTSIDE RECORDS SUMMARY | 2024-08-26 19:03 | XMS_ITS | Encounter Summary ---
Author Organization [facility] Address [address] [place] [address] Care Team Providers Care Customer Support Coordinator Name Role Phone Yolande Nicholas DO Primary Care Pro vider Unavailable Anuj Priest DO Primary Care Provider [facility], Pcp Primary Care Provider [facility] Encounter Details Date Type Department Care Team Description 01/22/2020 Pt. Non Urgent Medic al Question Adult Medicine [address] [address] Yolande Nicholas DO Social History Tobacco Use [...] [place] [facility] [place]. At this point we have followed all your previous orders regarding who to see and when. Regarding meeting [facility] Needs, we are working with Luda He APRN at [facility] in [place], [place] P: [phone] Therefore, from all the doctor's reports you [...] filedocumented in this encounter Care Teams Customer Support Coordinator Relationship Specialty Start Date End Date Yolande Nicholas DO PCP - General Internal Medicine 12/03/18 10/08/20 Anuj Priest DO PCP - General Internal Medicine 10/09/[address] [place] [address], Pcp PCP - General Internal Medicine 06/17/21 documented as of this encounter
--- OUTSIDE RECORDS SUMMARY | 2024-08-26 19:03 | XMS_ITS | Encounter Summary ---
Author Organization [facility] Address [address] [place] [address] Care Team Providers Care Bag Mender Name Role Phone Ghassan Burciaga MD Primary Care Provider Unavail able Pierre Arevalo MD Primary Care Provider Judy vailable Gerson Dawson MD Primary Care Provider Unavail able [facility], Pcp Primary Care Provider Unavailabl e Coleman Mccarthy MD Primary Care Provider Unavaila Ayo Demarco MD Primary Care Provider [phone] Annalee Jones MD Primary Care Provider Un available Pascual Nicholasabela DO Primary Care Pro vider Unavailable Anuj Priest DO Primary Care Provider Judy vailable [facility], Pcp Primary Care Provider Unavailabl e Encounter Details Date Type Department Care Team Description 01/30/2009 Hospital Medical Records [address] [place] [address] Fernie Higginbotham MD Social History Tobacco Use [...] on filedocumented in this encounter Care Teams Bag Mender Relationship Specialty Start Date End Date Ghassan Burciaga MD PCP - General 07/24/00 05/06/13 Pierre Arevalo MD PCP - General Internal Medicine 05/07/13 4 Gerson Dawson MD PCP - General Internal Medicine 01/30/14 03/20/14 [facility], Pcp PCP - General Internal Medicine 03/21/14 05/06/14 Coleman Mccarthy MD PCP - General Internal Medicine 05/07/14 07/18/16 Ayo Carpio MD [address] [place], [place] [id number] PCP - General Internal Medicine 07/19/16 01/05/17 Annalee Jones MD [address] [place], [place] [id number] PCP - General Internal Medicine 01/06/17 12/02/18 Yolande Nicholas DO [address] [place] [address] PCP - General Internal Medicine 12/03/18 10/08/20 Anuj Priest DO [address] [place] [address] PCP - General Internal Medicine 10/09/20 06/16/21 [facility], Pcp PCP - General Internal Medicine 06/17/21 documented as of this encounter
--- OUTSIDE RECORDS SUMMARY | 2024-08-26 19:03 | XMS_ITS | Encounter Summary ---
Author Organization [employer] Address [address] [facility] 7t [place] [address] Care Team Providers Care Supervisor Plating And Point Assembly Name Role Phone Sesar Pereyra MD Primary Care Provider [phone] Encounter Details Date Type Department Care Team ([facility] st Contact Info) Description 04/29/2024 Orders Only [facility] CHC MED & PEDS [address] [place], [place] [phone] Sesar Pereyra MD [address] [place] [address] Closed nondisplaced fracture of acromial end of [...] Upcoming Encounters Date Type Department Care Team ([facility] st Contact Info) Description 09/11/2024 10:30 AM EDT Office Visit [facility] CHC MED & PEDS [address] [place] [address] Sesar Pereyra MD [address] [place] [address] documented as of this encounter Visit Diagnoses Diagnosis Closed nondisplaced fracture of acromial end of right clavicle, initial encounter documented in this encounter Additional Health Concerns Assessment Noted Time PHQ-9 Depression Total Score: 16 024 10:59 AM EDT documented as of this encounter Care Teams Supervisor Plating And Point Assembly Relationship Specialty Start Date End Date Sesar Pereyra MD [address] [place] [address] PCP - General Internal Medicine 03/01/21 [facility] documented as of this encounter
--- OUTSIDE RECORDS SUMMARY | 2024-08-26 19:03 | XMS_ITS | Encounter Summary ---
Author Organization [facility] Address [address] [place] [address] Care Team Providers Care Coating And Embossing Unit Operator Name Role Phone Ayo Carpio MD Primary Care Provider [phone] Annalee Jones MD Primary Care Provider Un available Yolande Nicholas DO Primary Care Pro vider Unavailable Anuj Priest DO Primary Care Provider Judy [facility], Pcp Primary Care Provider Unavailabl e Encounter Details Date Type Department Care Team Description 08/05/2016 Release of Information Medical Records [address] [place] [address] Abstract, Provider Social History Tobacco Use Types [...] on filedocumented in this encounter Care Teams Coating And Embossing Unit Operator Relationship Specialty Start Date End Date Ayo Carpio MD [address] [place] [address] [id number] PCP - General Internal Medicine 07/19/16 01/05/17 Annalee Jones MD [address] [place] [address] PCP - General Internal Medicine 01/06/17 12/02/18 Yolande Nicholas, [address] [place] [address] PCP - General Internal Medicine 12/03/18 10/08/20 Anuj Priest DO [address] [place] [address] PCP - General Internal Medicine 10/09/20 06/16/21 [facility], Pcp [address] [place] [address] PCP - General Internal Medicine 06/17/21 documented as of this encounter
--- OUTSIDE RECORDS SUMMARY | 2024-08-26 19:03 | XMS_ITS | Encounter Summary ---
Author Organization [employer] Address [address] [facility] 7t [place] [address] Care Team Providers Care Bench Assembler Battery Name Role Phone Sesar Pereyra MD Primary Care Provider [phone] Encounter Details Date Type Department Care Team ([facility] st Contact Info) Description 04/01/2024 Orders Only [facility] CHC MED & PEDS [address] [place], [place] [phone] Sesar Pereyra MD [address] [place] [address] Essential hypertension (Primary Dx) Social History Tobacco [...] [facility] [address] [place] [address] Sesar Pereyra MD [address] [place] [address] documented as of this encounter Visit Diagnoses Diagnosis Essential hypertension- Primary Unspecified essential hypertension documented in this encounter Additional Health Concerns Assessment Noted Time PHQ-9 Depression Total Score: 16 024 10:59 AM EDT documented as of this encounter Care Teams Bench Assembler Battery Relationship Specialty Start Date End Date Sesar Pereyra MD [address] [place] [address] PCP - General Internal Medicine 03/01/21 [facility] documented as of this encounter
--- OUTSIDE RECORDS SUMMARY | 2024-08-26 19:03 | XMS_ITS | Encounter Summary ---
Author Organization [employer] Address [address] [facility] 7t [place] [address] Care Team Providers Care Audio Visual Production Specialist Name Role Phone Sesar Pereyra MD Primary Care Provider [phone] Encounter Details Date Type Department Care Team (Late st Contact Info) Description 07/10/2024 Orders Only [facility] MEDICINE [address] [place] [address] Sesar Pereyra MD [address] [place] [address] Memory disturbance (Primary Dx) Social History Tobacco [...] Upcoming Encounters Date Type Department Care Team ([facility] st Contact Info) Description 09/11/2024 10:30 AM EDT Office Visit [facility] MED & PEDS [address] [place] [address] Sesar Pereyra MD [address] [place] [address] documented as of this encounter Visit Diagnoses Diagnosis Memory disturbance- Primary Memory loss documented in this encounter Additional Health Concerns Assessment Noted Time PHQ-9 Depression Total Score: 16 024 10:59 AM EDT documented as of this encounter Care Teams Audio Visual Production Specialist Relationship Specialty Start Date End Date Sesar Pereyra MD [address] [place] [address] PCP - General Internal Medicine 03/01/21 [facility] 03/22/24 documented as of this encounter
--- OUTSIDE RECORDS SUMMARY | 2024-08-26 19:03 | XMS_ITS | Encounter Summary ---
Author Organization [facility] Address [address] [place] [address] Care Team Providers Care Bingo Worker Name Role Phone Coleman Mccarthy MD Primary Care Provider Unavaila ble Ayo Carpio MD Primary Care Provider [phone] Annalee Jones MD Primary Care Provider Un available Yolande Nicholas DO Primary Care Pro vider Unavailable Anuj Priest DO Primary Care Provider [facility], Pcp Primary Care Provider Unavailabl e Encounter Details Date Type Department Care Team Description 09/16/2015 ROOFING SUPERINTENDENT/[place] Report Medical Records [address] [place] [address] Abstract, Provider Social History Tobacco Use Types [...] on filedocumented in this encounter Care Teams Bingo Worker Relationship Specialty Start Date End Date Coleman Mccarthy MD PCP - General Internal Medicine 05/07/14 07/18/16 Ayo Carpio MD [address] [place] [address] [id number] PCP - General Internal Medicine 07/19/16 01/05/17 Annalee Jones MD [address] [place] [address] PCP - General Internal Medicine 01/06/17 12/02/18 Yolande Nicholas, [address] [place] [address] PCP - General Internal Medicine 12/03/18 10/08/20 Anuj Priest DO [address] [place] [address] PCP - General Internal Medicine 10/09/20 06/16/21 [facility], Pcp [address] [place] [address] PCP - General Internal Medicine 06/17/21 documented as of this encounter
--- OUTSIDE RECORDS SUMMARY | 2024-08-26 19:03 | XMS_ITS | Encounter Summary ---
Author Organization [employer] Address [address] [facility] 7t [place] [address] Care Team Providers Care Display Screen Fabricator Name Role Phone Sesar Pereyra MD Primary Care Provider [phone] Reason for Visit * Reason Onset Date Comments Med Refill 04/02/2024 Encounter Details Date Type Department Care Team (Late st Contact Info) Description 04/02/2024 Telephone [facility] MEDICINE [address] [place] [address] Sesar Pereyra MD [address] [place] [address] Med Refill Social History Tobacco Use Types [...] 9:39 AM EST Medication was sent to [facility] on 04/01/24 #30 with 11 refills. * Telephone Encounter - Miri Young - 04/02/2024 9:33 AM EST TC from pt requesting medication refill. Medications needing refill : metoprolol tartrate (Lopressor) 25 MG tablet To be sent to: [facility] documented in this encounter Plan of Treatment Upcoming Encounters Date Type Department Care Team (Late st Contact Info) Description 09/11/2024 10:30 AM EDT Office Visit [facility] CHC MED & PEDS [address] [place] [address] Sesar Pereyra MD [address] [place] [address] documented as of this encounter Visit Diagnoses Not on filedocumented in this encounter Additional Health Concerns Assessment Noted Time PHQ-9 Depression Total Score: 16 024 10:59 AM EDT documented as of this encounter Care Teams Display Screen Fabricator Relationship Specialty Start Date End Date Sesar Pereyra MD [address] [place] [address] PCP - General Internal Medicine 03/01/[address] [facility] 03/22/24 documented as of this encounter
--- OUTSIDE RECORDS SUMMARY | 2024-08-26 19:03 | XMS_ITS | Encounter Summary ---
Author [facility] Address [address] [place] [address] Care Team Providers Care Nurse Informaticist Name Role Phone Yolande Nicholas DO Primary Care Pro vider Unavailable Anuj Priest DO Primary Care Provider [facility], Pcp Primary Care Provider Unavailabl e Reason for Visit * Reason Comments E-prescribe Rx Request Encounter Details Date Type Department Care Team Description 01/01/2020 Refill Adult Medicine [address] [address] Alana Stinson MD [address] [place] [phone] E-prescribe Rx Request Social History Tobacco [...] on filedocumented in this encounter Care Teams Nurse Informaticist Relationship Specialty Start Date End Date Yolande Nicholas DO PCP - General Internal Medicine 12/03/18 10/08/20 Anuj Priest DO PCP - General Internal Medicine 10/09/20 2 [facility], Pcp PCP - General Internal Medicine 06/17/21 documented as of this encounter
--- OUTSIDE RECORDS SUMMARY | 2024-08-26 19:03 | XMS_ITS | Encounter Summary ---
Author Organization [employer] Address [address] [facility] 7t [place] [address] Care Team Providers Care User Interface Artist Name Role Phone Sesar Pereyra MD Primary Care Provider [phone] Reason for Visit * Reason Onset Date Comments Med Refill 04/28/2024 Encounter Details Date Type Department Care Team ([facility] st Contact Info) Description 04/28/2024 Refill [facility] CHC MED & PEDS [address] [place], [place] [phone] Sesar Pereyra MD [address] [place] [address] Social History Tobacco Use Types Packs/Day Years [...] Upcoming Encounters Date Type Department Care Team ([facility] st Contact Info) Description 09/11/2024 10:30 AM EDT Office Visit [facility] CHC MED & PEDS [address] [place] [address] Sesar Pereyra MD [address] [place] [address] documented as of this encounter Visit Diagnoses Not on filedocumented in this encounter Additional Health Concerns Assessment Noted Time PHQ-9 Depression Total Score: 16 024 10:59 AM EDT documented as of this encounter Care Teams User Interface Artist Relationship Specialty Start Date End Date Sesar Pereyra MD [address] [place] [address] PCP - General Internal Medicine 03/01/21 [facility] 03/22/24 documented as of this encounter
--- OUTSIDE RECORDS SUMMARY | 2024-08-26 19:03 | XMS_ITS | Encounter Summary ---
Author Organization [facility] Address [address] [place] [address] Care Team Providers Care Dynamite Packing Machine Feeder Name Role Phone Yolande Nicholas DO Primary Care Pro vider Unavailable Anuj Priest DO Primary Care Provider [facility], Pcp Primary Care Provider Unavailabl e Reason for Visit * Reason Onset Date Comments Mychart Rx Refill 06/27/2020 Encounter Details Date Type Department Care Team Description 06/27/2020 Refill Adult Medicine [address] [address] Yolande Nicholas DO Mychart Rx Refill Social [...] pharmacy whats the hold up Preferred pharmacy: [facility] [address] Medication renewals requested in this message routed separately: atorvastatin (LIPITOR) 80 MG tablet [Yolande Gomez DO] metoprolol (LOPRESSOR) 25 MG tablet [Yolande Gomez DO] documented in this encounter Plan of Treatment Not on file documented as of this encounter Visit Diagnoses Not on filedocumented in this encounter Care Teams Dynamite Packing Machine Feeder Relationship Specialty Start Date End Date Yolande Nicholas DO PCP - General Internal Medicine 12/03/18 10/08/20 Anuj Priest DO PCP - General Internal Medicine 10/09/[address] [place] [address], Pcp PCP - General Internal Medicine 06/17/21 documented as of this encounter
--- OUTSIDE RECORDS SUMMARY | 2024-08-26 19:03 | XMS_ITS | Encounter Summary ---
Author Organization [facility] [facility] Address [address] [place] [address] Care Team Providers Care Manager Care Name Role Phone Coleman Mccarthy MD Primary Care Provider Unavaila ble Ayo Carpio MD Primary Care Provider [phone] Annalee Jones MD Primary Care Provider Un available Yolande Nicholas DO Primary Care Pro vider Unavailable Anuj Priest DO Primary Care Provider [facility], Pcp Primary Care Provider Unavailabl e Encounter Details Date Type Department Care Team Description 05/19/2015 Regional Administrative Assistant Report Medical Records [address] [place] [address] Anuj Easton Social History Tobacco Use Types [...] filedocumented in this encounter Care Teams Manager Care Relationship Specialty Start Date End Date Coleman Mccarthy MD PCP - General Internal Medicine 05/07/14 07/18/16 Ayo Carpio MD [address] [place] [address] PCP - General Internal Medicine 07/19/16 01/05/17 Annalee Jones MD [address] [place] [address] PCP - General Internal Medicine 01/06/17 12/02/18 Yloande Nicholas, [address] [place] [address] PCP - General Internal Medicine 12/03/18 10/08/20 Anuj Priest DO [address] [place] [address] PCP - General Internal Medicine 10/09/20 06/16/21 [facility], Pcp [address] [place] [address] PCP - General Internal Medicine 06/17/21 documented as of this encounter
--- OUTSIDE RECORDS SUMMARY | 2024-08-26 19:03 | XMS_ITS | Encounter Summary ---
Author Organization [facility] Address [address] [place] [address] Care Team Providers Care Search Marketing Specialist Name Role Phone Annalee Jones MD Primary Care Provider Un available Yolande Nicholas DO Primary Care Pro vider Unavailable Anuj Priest DO Primary Care Provider Judy [facility], Pcp Primary Care Provider Unavailabl e Encounter Details Date Type Department Care Team Description 11/14/2017 Pt. Non Urgent Medic al Question Adult Medicine [address] [address] Annalee Jones MD Social History Tobacco Use [...] of sildenafil 20Mg 10 Qty. Sent to [facility] y [address] [facility] [address] Tele [phone] documented in this encounter Plan of Treatment Not on file documented as of this encounter Visit Diagnoses Not on filedocumented in this encounter Care Teams Search Marketing Specialist Relationship Specialty Start Date End Date Annalee Jones MD PCP - General Internal Medicine 01/06/17 9 Yolande Nicholas DO PCP - General Internal Medicine 12/03/18 10/08/20 Anuj Priest DO PCP - General Internal Medicine 10/09/20 2 [facility], Pcp PCP - General Internal Medicine 06/17/21 documented as of this encounter
--- OUTSIDE RECORDS SUMMARY | 2024-08-26 19:03 | XMS_ITS | Encounter Summary ---
Author Organization [employer] [facility] Address [address] [place] [address] Care Team Providers Care Middle School Coach Name Role Phone Ayo Carpio MD Primary Care Provider [phone] Annalee Jones MD Primary Care Provider Un available Yolande Nicholas DO Primary Care Pro vider Unavailable Anuj Priest DO Primary Care Provider Judy [facility], Pcp Primary Care Provider Unavailabl e Encounter Details Date Type Department Care Team Description 11/28/2016 SCAN Medical Records [address] [place] [address] Abstract, Provider Social History Tobacco Use Types [...] on filedocumented in this encounter Care Teams Middle School Coach Relationship Specialty Start Date End Date Ayo Carpio MD [address] [place] [address] [id number] PCP - General Internal Medicine 07/19/16 01/05/17 Annalee Jones MD [address] [place] [address] PCP - General Internal Medicine 01/06/17 12/02/18 Yolande Nicholas, [address] [place] [address] PCP - General Internal Medicine 12/03/18 10/08/20 Anuj Priest DO [address] [place] [address] PCP - General Internal Medicine 10/09/20 06/16/21 [facility], Pcp [address] [place], [place] [id number] PCP - General Internal Medicine 06/17/21 documented as of this encounter
--- OUTSIDE RECORDS SUMMARY | 2024-08-26 19:03 | XMS_ITS | Encounter Summary ---
Author Organization [employer] Address [address] [facility] 7t [place] [address] Care Team Providers Care Chief Engineering Division Name Role Phone Sesar Pereyra MD Primary Care Provider [phone] Reason for Visit * Reason Onset Date Comments Follow-up 08/26/2024 Encounter Details Date Type Department Care Team ([facility] st Contact Info) Description 08/26/2024 Telephone [facility] [address] [place] [address] Sesar Pereyra MD [address] [place] [address] Follow-up Social History Tobacco Use Types Packs/Day Years [...] encounter Miscellaneous Notes * Telephone Encounter - Lauren Beauchamp RN - 08/26/2024 11:09 AM EDT TC to pt [facility] nurse [facility]. Verified pt information. [facility] stated pt was discharged from ED on several medication contraindicated with his current medications, and therapist is at visit with pt and therapist contacted [facility] to report pt condition of being lethargic and having fever of 101.8 F. Author advised pt return to ED for concerns of worsening infection. [facility] verbalized understanding and agreement with plan. * Telephone Encounter - Miranda Mcwilliams RN - 08/26/2024 11:02 AM EDT TC incoming from Home health nurse [facility] in regards to concerns for pt on critical line. Pt was discharged from the hospital on azithromycin which is contraindicated for this pt. Now concerned due to pt having low grade fever. Informed nurse that we will have team nurse return call, agrees to plan. Lauren TAYLOR made aware, will route to box. Contact at [phone]. documented in this encounter Plan of Treatment Upcoming Encounters Date Type Department Care Team (Late st Contact Info) Description 09/11/2024 10:30 AM EDT Office Visit [facility] [address] [place] [address] Sesar Pereyra MD [address] [place] [address] documented as of this encounter Visit Diagnoses Not on filedocumented in this encounter Additional Health Concerns Assessment Noted Time PHQ-9 Depression Total Score: 6 07/25/19 25 3:22 PM EDT documented as of this encounter Care Teams Chief Engineering Division Relationship Specialty Start Date End Date Sesar Pereyra MD [address] [place] [address] PCP - General Internal Medicine 03/01/21 [facility] 03/22/24 documented as of this encounter
--- OUTSIDE RECORDS SUMMARY | 2024-08-26 19:03 | XMS_ITS | Encounter Summary ---
Author Organization [facility] Address [address] [place] [address] Care Team Providers Care Coverer Name Role Phone Pierre Arevalo MD Primary Care Provider Judy vailable Gerson Dawson MD Primary Care Provider Unavail able [facility], Pcp Primary Care Provider Unavailabl Coleman Sampson MD Primary Care Provider Unavaila Ayo Demarco MD Primary Care Provider [phone] Annalee Jones MD Primary Care Provider Un available Yolande Nicholas DO Primary Care Pro vider Unavailable Anuj Priest DO Primary Care Provider Judy vailable [facility], Pcp Primary Care Provider Unavailabl e Encounter Details Date Type Department Care Team Description 10/18/2013 Refill Medicine/Pediatrics - [address] [phone] Madyson Vazquez PA-C Social History Tobacco Use [...] MG tablet [Madyson Vazquez PA-C] Preferred pharmacy: [facility] [place], [place] [address] BREANN OLIVAS Comment: To дмитрий Meyer in . [place] 4pills 100mg documented in this encounter Plan of Treatment Not on file documented as of this encounter Visit Diagnoses Not on filedocumented in this encounter Care Teams Coverer Relationship Specialty Start Date End Date Pierre Arevalo MD PCP - General Internal Medicine 05/07/13 4 Gerson Dawson MD PCP - General Internal Medicine 01/30/14 03/20/14 [facility], Pcp PCP - General Internal Medicine 03/21/14 05/06/14 Coleman Mccarthy MD PCP - General Internal Medicine 05/07/14 07/18/16 Ayo Carpio MD [address] [place], [place] [phone] PCP - General Internal Medicine 07/19/16 01/05/17 Annalee Jones MD [address] [place] [address] PCP - General Internal Medicine 01/06/17 12/02/18 Yolande Nicholas, DO [address] [place] [address] PCP - General Internal Medicine 12/03/18 10/08/20 Anuj Priest, DO [address] [place] [address] PCP - General Internal Medicine 10/09/20 06/16/21 [facility], Pcp PCP - General Internal Medicine 06/17/21 documented as of this encounter
--- OUTSIDE RECORDS SUMMARY | 2024-08-26 19:03 | XMS_ITS | Encounter Summary ---
Author Organization [facility] Address [address] [place] [address] Care Team Providers Care Sorting Machine Attendant Name Role Phone Yolande Nicholas DO Primary Care Pro vider Unavailable Anuj Priest DO Primary Care Provider [facility], Pcp Primary Care Provider Unavailabl e Reason for Visit * Reason Onset Date Comments Information Needed 09/06/2019 Encounter Details Date Type Department Care Team Description 09/06/2019 Telephone Adult [address] [address] Yolande Nicholas DO Information Needed Social History [...] Perez M.A. - 09/06/2019 2:36 PM EDT [facility] - [phone] Left detailed msg for pt to call above number to request the discharge summary, Unable to get the D/C summary through [employer] * Telephone Encounter - Judith Cardenas - 09/06/2019 10:47 AM EDT Patient's girlfriend Ame is requesting the discharge summary to be faxed to Dr. Baker to [phone] * Telephone Encounter - Sabina Zaman - 09/06/2019 9:49 AM EDT Ame, the patient girlfriend is calling stating that the patient needs the discharge summary from [facility] to sent over to [facility], to Dr. Duc Baker for his audio visit 09/06/2019 in order for the patient to continue to get prescribe his anxiety medication. Please advise. documented in this encounter Plan of Treatment Not on file documented as of this encounter Visit Diagnoses Not on filedocumented in this encounter Care Teams Sorting Machine Attendant Relationship Specialty Start Date End Date Yolande Nicholas DO PCP - General Internal Medicine 12/03/18 10/08/20 Anuj Priest DO PCP - General Internal Medicine 10/09/[address] [place] [address], Pcp PCP - General Internal Medicine 06/17/21 documented as of this encounter
--- OUTSIDE RECORDS SUMMARY | 2024-08-26 19:04 | XMS_ITS | Encounter Summary ---
Author Organization [facility] Address [address] [place] [address] Care Team Providers Care Sole Polisher Name Role Phone Ghassan Burciaga MD Primary Care Provider Unavail able Pierre Arevalo MD Primary Care Provider Judy vailable Gerson Dawson MD Primary Care Provider Unavail able [facility], Pcp Primary Care Provider Unavailabl e Coleman Mccarthy MD Primary Care Provider Unavaila Ayo Demarco MD Primary Care Provider [phone] Annalee Jones MD Primary Care Provider Un available Pascual Nicholasabela DO Primary Care Pro vider Unavailable Anuj Priest DO Primary Care Provider Judy vailable [facility], Pcp Primary Care Provider Unavailabl e Encounter Details Date Type Department Care Team Description 08/27/2010 Spindraw Operator Report Medical Records [address] [place] [address] Anuj Easton Social History Tobacco Use Types [...] filedocumented in this encounter Care Teams Sole Polisher Relationship Specialty Start Date End Date Ghassan Burciaga MD PCP - General 07/24/00 05/06/13 Pierre Arevalo MD PCP - General Internal Medicine 05/07/13 4 Gerson Dawson MD PCP - General Internal Medicine 01/30/14 03/20/14 [facility], Pcp PCP - General Internal Medicine 03/21/14 05/06/14 Coleman Mccarthy MD PCP - General Internal Medicine 05/07/14 07/18/16 Ayo Carpio MD [address] [place] [address] PCP - General Internal Medicine 07/19/16 01/05/17 Annalee Jones MD [address] [place] [address] PCP - General Internal Medicine 01/06/17 12/02/18 Yolande Nicholas, [address] [place] [address] PCP - General Internal Medicine 12/03/18 10/08/20 Anuj Priest DO [address] [place] [address] PCP - General Internal Medicine 10/09/20 06/16/21 [facility], Pcp PCP - General Internal Medicine 06/17/21 documented as of this encounter
--- OUTSIDE RECORDS SUMMARY | 2024-08-26 19:04 | XMS_ITS | Encounter Summary ---
Author Organization [facility] Address [address] [place] [address] Care Team Providers Care Licensed Psychiatric Technician Name Role Phone Yolande Nicholas DO Primary Care Pro vider Unavailable Anuj Priest DO Primary Care Provider [facility], Pcp Primary Care Provider Unavailabl e Reason for Visit * Reason Onset Date Comments Faxed Order 03/07/2020 Encounter Details Date Type Department Care Team Description 03/07/[address] [address] Yolande Nicholas DO Faxed Order Social History [...] TO BE SIGN AND FAX BACK TO [phone]. documented in this encounter Plan of Treatment Not on file documented as of this encounter Visit Diagnoses Not on filedocumented in this encounter Care Teams Licensed Psychiatric Technician Relationship Specialty Start Date End Date Yolande Nicholas DO PCP - General Internal Medicine 12/03/18 10/08/20 Anuj Priest DO PCP - General Internal Medicine 10/09/[address] [place] [address], Pcp PCP - General Internal Medicine 06/17/21 documented as of this encounter
--- OUTSIDE RECORDS SUMMARY | 2024-08-26 19:04 | XMS_ITS | Encounter Summary ---
Author Organization [employer] Address [address] [facility] 7t [place] [address] Care Team Providers Care Auto Haulaway Driver Name Role Phone Sesar Pereyra MD Primary Care Provider [phone] Reason for Visit * Reason Comments Med Refill Encounter Details Date Type Department Care Team ([facility] Contact Info) Description 10/26/2022 Refill [facility] [address] [place] [address] Sesar Pereyra MD [address] [place] [address] Social History Tobacco Use Types Packs/Day Years [...] Visit [facility] [address] [place] [address] Sesar Pereyra MD [address] [place] [address] documented as of this encounter Visit Diagnoses Not on filedocumented in this encounter Care Teams Auto Haulaway Driver Relationship Specialty Start Date End Date Sesar Pereyra MD [address] [place] [address] PCP - General Internal Medicine 03/01/21 [facility] 03/22/24 documented as of this encounter
--- OUTSIDE RECORDS SUMMARY | 2024-08-26 19:04 | XMS_ITS | Encounter Summary ---
Author Organization [employer] Address [address] [facility] 7t [place] [address] Care Team Providers Care Boat Driver Name Role Phone Sesar Pereyra MD Primary Care Provider [phone] Reason for Visit * Reason Comments Med Refill Encounter Details Date Type Department Care Team ([facility] Contact Info) Description 06/10/2022 Refill [facility] PEDS [address] [place] [address] Sesar Pereyra MD [address] [place] [address] Primary insomnia Social History Tobacco Use Types [...] [facility] [address] [place] [address] Sesar Pereyra MD [address] [place] [address] documented as of this encounter Visit Diagnoses Diagnosis Primary insomnia Persistent disorder of initiating or maintaining sleep documented in this encounter Care Teams Boat Driver Relationship Specialty Start Date End Date Sesar Pereyra MD [address] [place] [address] PCP - General Internal Medicine 03/01/21 [facility] 03/22/24 documented as of this encounter
--- OUTSIDE RECORDS SUMMARY | 2024-08-26 19:04 | XMS_ITS | Encounter Summary ---
Author Organization [facility] Address [address] [place] [address] Care Team Providers Care Elastic Attacher Zigzag Name Role Phone Yolande Nicholas DO Primary Care Pro vider Unavailable Anuj Priest DO Primary Care Provider [facility], Pcp Primary Care Provider Unavailabl e Reason for Visit * Reason Onset Date Comments Faxed Order 03/29/2020 Encounter Details Date Type Department Care Team Description 03/29/2020 Telephone Adult [address] [address] Yolande Nicholas DO Faxed Order Social History [...] TO BE SIGN AND FAX BACK TO [phone]. documented in this encounter Plan of Treatment Not on file documented as of this encounter Visit Diagnoses Not on filedocumented in this encounter Care Teams Elastic Attacher Zigzag Relationship Specialty Start Date End Date Yolande Nicholas DO PCP - General Internal Medicine 12/03/18 10/08/20 Anuj Priest DO PCP - General Internal Medicine 10/09/20 2 [facility], Pcp PCP - General Internal Medicine 06/17/21 documented as of this encounter
--- OUTSIDE RECORDS SUMMARY | 2024-08-26 19:04 | XMS_ITS | Encounter Summary ---
Author Organization [employer] Address [address] [facility] 7t [place] [address] Care Team Providers Care Director Of Consumer Marketing Name Role Phone Sesar Pereyra MD Primary Care Provider [phone]- [phone] Reason for Visit * Reason Comments Med Refill Encounter Details Date Type Department Care Team (Late st Contact Info) Description 08/29/2023 Refill [facility] [address] [place] [address] Sesar Pereyra MD [address] [place] [address] Social History Tobacco Use Types Packs/Day Years [...] Visit [facility] [address] [place] [address] Sesar Pereyra MD [address] [place] [address] documented as of this encounter Visit Diagnoses Not on filedocumented in this encounter Additional Health Concerns Assessment Noted Time PHQ-9 Depression Total Score: 16 024 10:59 AM EDT documented as of this encounter Care Teams Director Of Consumer Marketing Relationship Specialty Start Date End Date Sesar Pereyra MD [address] [place] [address] PCP - General Internal Medicine 03/01/21 [facility] [facility] 03/22/24 documented as of this encounter
--- OUTSIDE RECORDS SUMMARY | 2024-08-26 19:04 | XMS_ITS | Encounter Summary ---
Author Organization [employer] Address [address] [facility] 7t [place] [address] Care Team Providers Care Laborer Sawmill Name Role Phone Sesar Pereyra MD Primary Care Provider [phone] Encounter Details Date Type Department Care Team ([facility] st Contact Info) Description 11/01/2023 Orders Only [facility] [address] [place], [place] [phone] Sesar Pereyra MD [address] [place] [address] Social History Tobacco Use Types Packs/Day Years [...] Upcoming Encounters Date Type Department Care Team ([facility] st Contact Info) Description 09/11/2024 10:30 AM EDT Office Visit [facility] [address] [place] [address] Sesar Pereyra MD [address] [place] [address] documented as of this encounter Visit Diagnoses Not on filedocumented in this encounter Additional Health Concerns Assessment Noted Time PHQ-9 Depression Total Score: 16 024 10:59 AM EDT documented as of this encounter Care Teams Laborer Sawmill Relationship Specialty Start Date End Date Sesar Pereyra MD [address] [place] [address] PCP - General Internal Medicine 03/01/21 [facility] 03/22/24 documented as of this encounter
--- OUTSIDE RECORDS SUMMARY | 2024-08-26 19:04 | XMS_ITS | Encounter Summary ---
Author Organization [facility] Address [address] [place] [address] Care Team Providers Care Well Drill Operator Cable Tool Name Role Phone Annalee Jones MD Primary Care Provider Un available Yolande Nicholas DO Primary Care Pro vider Unavailable Anuj Priest DO Primary Care Provider Judy [facility], Pcp Primary Care Provider Unavailabl e Encounter Details Date Type Department Care Team Description 06/13/2018 Refill Adult Medicine [address] [address] Annalee Jones MD Social History Tobacco Use [...] Renewal Request Original authorizing provider: MD Alex rAce would like a refill of the following medications: sildenafil (REVATIO) 20 MG tablet [Annalee Jones MD] Preferred pharmacy: [facility] [address] [place] Comment: you have nothing [...] filedocumented in this encounter Care Teams Well Drill Operator Cable Tool Relationship Specialty Start Date End Date Annalee Jones MD PCP - General Internal Medicine 01/06/17 9 Yolande Nicholas DO PCP - General Internal Medicine 12/03/18 10/08/20 Anuj Priest DO PCP - General Internal Medicine 10/09/20 2 [facility], Pcp PCP - General Internal Medicine 06/17/21 documented as of this encounter
--- OUTSIDE RECORDS SUMMARY | 2024-08-26 19:04 | XMS_ITS | Encounter Summary ---
Author Organization [facility] Address [address] [place] [address] Care Team Providers Care Machine Tool Designer Name Role Phone Yolande Nicholas DO Primary Care Pro vider Unavailable Anuj Priest DO Primary Care Provider [facility], Pcp Primary Care Provider Unavailabl e Reason for Visit * Reason Onset Date Comments Faxed Order 03/22/2020 Encounter Details Date Type Department Care Team Description 03/22/2020 Telephone Adult [address] [address] Yolande Nicholas DO Faxed Order Social History [...] review, sign, date, and fax back to [phone] * Telephone Encounter - Gerri Parra - 03/22/2020 12:47 PM EST [facility] IS FAXING ORDERS TO BE SIGN AND FAX BACK TO [phone]. documented in this encounter Plan of Treatment Not on file documented as of this encounter Visit Diagnoses Not on filedocumented in this encounter Care Teams Machine Tool Designer Relationship Specialty Start Date End Date Yolande Nicholas DO PCP - General Internal Medicine 12/03/18 10/08/20 Anuj Priest DO PCP - General Internal Medicine 10/09/20 2 [facility], Pcp PCP - General Internal Medicine 06/17/21 documented as of this encounter
--- OUTSIDE RECORDS SUMMARY | 2024-08-26 19:04 | XMS_ITS | Encounter Summary ---
Author Organization [facility] Address [address] [place] [address] Care Team Providers Care Fulfillment Specialist Name Role Phone Yolande Nicholas DO Primary Care Pro vider Unavailable Anuj Priest DO Primary Care Provider [facility], Pcp Primary Care Provider Unavailabl e Reason for Visit * Reason Onset Date Comments Faxed Refill 02/25/2020 Encounter Details Date Type Department Care Team Description 02/25/2020 Refill Adult Medicine [address] [address] Yolande Nicholas DO Faxed Refill Social History [...] - MEDICARE / Plan: MEDICARE FFS $5 [place] [id number] / Product Type: MEDICARE [id number] documented in this encounter Plan of Treatment Not on file documented as of this encounter Visit Diagnoses Not on filedocumented in this encounter Care Teams Fulfillment Specialist Relationship Specialty Start Date End Date Yolande Nicholas DO PCP - General Internal Medicine 12/03/18 10/08/20 Anuj Priest DO PCP - General Internal Medicine 10/09/[address] [place] [address], Pcp PCP - General Internal Medicine 06/17/21 documented as of this encounter
--- OUTSIDE RECORDS SUMMARY | 2024-08-26 19:04 | XMS_ITS | Encounter Summary ---
Author Organization [employer] Address [address] [facility] 7t [place] [address] Care Team Providers Care Field Services Manager Name Role Phone Sesar Pereyra MD Primary Care Provider [phone]- [phone] Reason for Visit * Reason Comments Med Refill Encounter Details Date Type Department Care Team ([facility] Contact Info) Description 10/19/2022 Refill [facility] MED & PEDS [address] [place] [address] Sesar Pereyra MD [address] [place] [address] Social History Tobacco Use Types Packs/Day Years [...] Upcoming Encounters Date Type Department Care Team ([facility] Contact Info) Description 09/11/2024 10:30 AM EDT Office Visit [facility] [address] [place] [address] Sesar Pereyra MD [address] [place] [address] documented as of this encounter Visit Diagnoses Not on filedocumented in this encounter Care Teams Field Services Manager Relationship Specialty Start Date End Date Sesar Pereyra MD [address] [place] [address] PCP - General Internal Medicine 03/01/21 [facility] 03/22/24 documented as of this encounter
--- OUTSIDE RECORDS SUMMARY | 2024-08-26 19:04 | XMS_ITS | Encounter Summary ---
Author Organization [employer] Address 75 [facility] 7t [place] [address] Care Team Providers Care Wire Temperer Name Role Phone Sesar Pereyra MD Primary Care Provider +1- [phone] Reason for Visit * Reason Onset Date Comments Lab Orders 05/30/2024 Referral 05/30/2024 Encounter Details Date Type Department Care Team (Late st Contact Info) Description 05/30/2024 Telephone [facility] MED[facility]INE [address] [place] [address] Sesar Pereyra MD [address] [place], [place] [phone] Lab Orders; Referral Social History Tobacco Use [...] [facility] [address] [place] [address] Sesar Pereyra MD [address] [place] [address] documented as of this encounter Visit Diagnoses Not on filedocumented in this encounter Additional Health Concerns Assessment Noted Time PHQ-9 Depression Total Score: 16 024 10:59 AM EDT documented as of this encounter Care Teams Wire Temperer Relationship Specialty Start Date End Date Sesar Pereyra MD [address] [place] [address] PCP - General Internal Medicine 03/01/21 [facility] 03/22/24 documented as of this encounter
--- OUTSIDE RECORDS SUMMARY | 2024-08-26 19:04 | XMS_ITS | Encounter Summary ---
Author Organization [employer] Address 75 [facility] [place] [address] Care Team Providers Care Environmental Field Services Technician Name Role Phone Sesra Pereyra MD Primary Care Provider +1- [phone] Reason for Referral * Consultation (Routine) - Closed Specialty Diagnoses / Procedures Referred By Wander reynolds Referred To Contact Geriatric Medicine Diagnoses Memory disturbance Sesar Pereyra MD [address] [place] [address] Phone: tel: fax: [facility] [address] [place] [address] Phone: tel: fax: Referral ID Status Reason Start Date Expiration Date V isits Requested Visits Authorized [id number] Closed Specialty Services Required 01/11/2024 01/10/2025 1 1 Encounter Details Date Type Department Care Team (Late st Contact Info) Description 01/11/2024 Orders Only [facility] CH[facility] MED & PEDS [address] [place], [place] [phone] Sesar Pereyra MD [address] [place] [address] Memory disturbance (Primary Dx) Social History Tobacco [...] [facility] MED & PEDS [address] [place] [address] Sesar Pereyra MD [address] [place] [address] Scheduled Referrals Name Type Priority Associated Diagnoses Orde r Schedule Referral to Geriatrics Outpatient Referral Routine Memory disturbance Expected: 01/11/2024 (Approximate), Expires: 01/10/2025 documented as of this encounter Visit Diagnoses Diagnosis Memory disturbance- Primary Memory loss documented in this encounter Additional Health Concerns Assessment Noted Time PHQ-9 Depression Total Score: 16 024 10:59 AM EDT documented as of this encounter Care Teams Environmental Field Services Technician Relationship Specialty Start Date End Date Sesar Pereyra MD [address] [place] [address] PCP - General Internal Medicine 03/01/21 [facility] 03/22/24 documented as of this encounter
--- OUTSIDE RECORDS SUMMARY | 2024-08-26 19:04 | XMS_ITS | Encounter Summary ---
Author Organization [facility] Address [address] [place] [address] Care Team Providers Care Medical Technical Writer Name Role Phone Annalee Jones MD Primary Care Provider Un available Yolande Nicholas DO Primary Care Pro vider Unavailable Anuj Priest DO Primary Care Provider Judy vailable [facility], Pcp Primary Care Provider Unavailabl e Encounter Details Date Type Department Care Team Description 09/04/2018 Release of Information Medical Records [address] [place] [id number] Abstract, Provider Social History Tobacco Use Types [...] filedocumented in this encounter Care Teams Medical Technical Writer Relationship Specialty Start Date End Date Annalee Jones MD PCP - General Internal Medicine 01/06/17 9 Yolande Nicholas DO PCP - General Internal Medicine 12/03/18 10/08/20 Anuj Priest DO PCP - General Internal Medicine 10/09/20 2 Jj, Pcp PCP - General Internal Medicine 06/17/21 documented as of this encounter
--- OUTSIDE RECORDS SUMMARY | 2024-08-26 19:04 | XMS_ITS | Encounter Summary ---
Author Organization [facility] Address [address] [place] [address] Care Team Providers Care Master Glazier Name Role Phone Yolande Nicholas DO Primary Care Pro vider Unavailable Anuj Priest DO Primary Care Provider [facility], Pcp Primary Care Provider Unavailabl e Reason for Visit * Reason Onset Date Comments Faxed Order 03/29/2020 Encounter Details Date Type Department Care Team Description 03/29/2020 Telephone Adult [address] [address] Yolande Nicholas DO Faxed Order Social History [...] TO BE SIGN AND FAX BACK TO [phone]. documented in this encounter Plan of Treatment Not on file documented as of this encounter Visit Diagnoses Not on filedocumented in this encounter Care Teams Master Glazier Relationship Specialty Start Date End Date Yolande Nicholas DO PCP - General Internal Medicine 12/03/18 10/08/20 Anuj Priest DO PCP - General Internal Medicine 10/09/20 2 [facility], Pcp PCP - General Internal Medicine 06/17/21 documented as of this encounter
--- OUTSIDE RECORDS SUMMARY | 2024-08-26 19:04 | XMS_ITS | Encounter Summary ---
Author Organization [employer] Address [address] [place] [address] 7 [place] [address] Care Team Providers Care Identification And Records Commander Name Role Phone Sesar Pereyra MD Primary Care Provider +1 [phone] Reason for Referral * Hospital - Outpatient (Routine) - Authorized Specialty Diagnoses / Procedures Referred By Contac t Referred To Contact Diagnoses Sleep disorder Snoring Procedures Polysomnography Sesar Pereyra MD [address] [place] [address] Phone: tel: fax: [address] Phone: tel: fax: Referral ID Status Reason Start Date Expiration Date V isits Requested Visits Authorized [id number] Authorized 08/02/2024 08/02/2025 1 1 Encounter Details Date Type Department Care Team (Late st Contact Info) Description 08/01/2024 Orders Only [facility] CHC MED & PEDS [address] [place] [address] Sesar Pereyra MD [address] [place] [address] Sleep disorder (Primary Dx); Snoring Social History [...] Description 09/11/2024 10:30 AM EDT Office Visit [facility] CH[facility] MED & PEDS [address] [place], [place] [phone] Sesar Pereyra MD [address] [place] [address] Scheduled Orders Name Type Priority Associated Diagnoses Orde r Schedule Polysomnography [facility] Routine Sleep disorder Snoring Expected: 08/02/2024 (Approximate), Expires: 08/02/2025 documented as of this encounter Procedures Procedure Name Priority Date/Time Associated Diagnosis Comments XR CHEST 2 VIEWS Routine 08/26/2024 12:3 5 PM EDT XR SHOULDER 2+ VIEWS LEFT Routine 08/01/2024 10:00 AM EDT documented in this encounter Results * XR Chest 2 Views (08/26/2024 12:35 PM EDT) Anatomical Region Laterality Modality Chest Radiographic Homa ging 08/26/2024 12:3 5 PM EDT Narrative 08/26/2024 12:50 PM EDT ? [facility] ?[address] ?[place] [address] ?XRay Report ? Signed ? Patient: Alex Nettles ?MR#: [id number] ?? [id number] ? : 1945 ?Acct:[id number] ? Age/Sex: 79 / M ?ADM Date: 08/26/24 ? Loc: HO.ED ? Attending Dr: ? Ordering Physician: Lonny Delgado ?? Date of Service: 08/26/24 ?? Procedure(s): XR chest 2V ?? Accession Number(s): [id number] ? cc: Sesar Pereyra MD; Lonny Delgado ? EXAMINATION: ?? XR CHEST ? CLINICAL INFORMATION: ?? fever ? COMPARISON: ?? 08/20/2024, 08/01/2024. ? TECHNIQUE: ?? 2 views of the chest were obtained. ? FINDINGS: ?? The cardiac, hilar, and mediastinal contours are normal. ? There is mild pulmonary hyperaeration. There is flattening of the ?? hemidiaphragms. ?? There is patchy opacity in the left lower lobe distribution. ?? There is suggestion of peribronchial thickening in both lower lobes. ?? There is no pneumothorax or pleural effusion. ? There is no focal osseous or soft tissue abnormality. ? XR/XR chest 2V ?? IMPRESSION: ?? Left lower lobe pneumonia. No definite effusions. ?? Suggestion of peribronchial thickening in both lower lobes left greater ?? than right. ?? Likely underlying COPD. ? Electronically signed by: ??Jaquan Guillen MD ??08/26/2024 12:48 PM EDT RP ? Dictated By: ?Jaquan Guillen MD ? Signed By: ?<Electronically signed by Jaquan Guillen MD in OV> ?08/26/24 1248 ? DD/ 1235 ? TD/TT: 08/26/24 1240 ? Social Service Assistant: ? Procedure Note Donottaylorinterpreter, Image - 08/26/[address] [address] XRay Report Signed Patient: Ronald Nettles#: [id number] : 1945cct:[id number] Age/Sex: 79 / MADM Date: 08/26/24 Loc: HO.ED Attending Dr: Ordering Physician: Lonny Delgado Date of Service: 08/26/24 Procedure(s): XR chest 2V Accession Number(s): [id number] cc: Sesar Pereyra MD; Lonny Delgado EXAMINATION: XR CHEST CLINICAL INFORMATION: fever COMPARISON: 08/20/2024, 08/01/2024. TECHNIQUE: 2 views of the chest were obtained. FINDINGS: The cardiac, hilar, and mediastinal contours are normal. There is mild pulmonary hyperaeration. There is flattening of the hemidiaphragms. There is patchy opacity in the left lower lobe distribution. There is suggestion of peribronchial thickening in both lower lobes. There is no pneumothorax or pleural effusion. There is no focal osseous or soft tissue abnormality. XR/XR chest 2V IMPRESSION: Left lower lobe pneumonia. No definite effusions. Suggestion of peribronchial thickening in both lower lobes left greater than right. Likely underlying COPD. Electronically signed by: Jaquan Guillen MD 08/26/2024 12:48 PM EDT Dictated By: Jaquan Guillen MD Signed By: <Electronically signed by Jaquan Guillen MD in OV> 08/26/24 1248 DD/ 1235 TD/TT: 08/26/24 1240 Social Service Assistant: [facility] External Provider IMG XR PROCEDURES Final Result * XR Shoulder 2+ Views Left (08/01/2024 10:00 AM EDT) Anatomical Region Laterality Modality Upper Extremities, Shoulder Left Radi ographic Imaging 08/01/2024 10:0 0 AM EDT Narrative 08/02/2024 8:13 AM EDT ? [place] [facility] ? [address] ?[place], [place] [address] ?XRay Report ? Signed ? Patient: Alex Nettles ?MR#: [id number] ?? [id number] ? : 1945 ?Acct:[id number] ? Age/Sex: 79 / M ?ADM Date: 08/01/24 ? Loc: HO.HOSX ? Attending Dr: Royce Kothari MD ? Ordering Physician: Royce Kothari MD ?? Date of Service: 08/01/24 ?? Procedure(s): XR shoulder LT min 2V ?? Accession Number(s): [id number] ? cc: Sesar Pereyra MD; Royce Kothari [...] DD/ 1000 ? TD/TT: 08/01/24 1005 ? Social Service Assistant: ? Procedure Note Donotuseinterpreter, Image - 08/02/2024 [facility] [address] [place] [address] Drive [address] [place] [address] XRay Report Signed Patient: Alex NettlesMR#: [id number] : 1945cct:[id number] Age/Sex: 79 / MADM Date: 08/01/24 Loc: HO.HOSX Attending Dr: Royce Kothari MD Ordering Physician: Royce Kothari MD Date of Service: 08/01/24 Procedure(s): XR shoulder LT min 2V Accession Number(s): [id number] cc: Sesar Pereyra MD; Royce Kothari MD [...] 08/02/24 0811 DD/ 1000 TD/TT: 08/01/24 1005 Social Service Assistant: [facility] External Provider IMG XR PROCEDURES Final Result documented in this encounter Visit Diagnoses Diagnosis Sleep disorder- Primary Unspecified sleep disturbance Snoring Other dyspnea and respiratory abnormality documented in this encounter Additional Health Concerns Assessment Noted Time PHQ-9 Depression Total Score: 6 07/25/19 25 3:22 PM EDT documented as of this encounter Care Teams Identification And Records Commander Relationship Specialty Start Date End Date Sesar Pereyra MD [address] [place] [address] PCP - General Internal Medicine 03/01/21 [facility] 03/22/24 documented as of this encounter
--- OUTSIDE RECORDS SUMMARY | 2024-08-26 19:04 | XMS_ITS | Encounter Summary ---
Author Organization [facility] Address [address] [place] [address] Care Team Providers Care Conventional Machinist Name Role Phone Yolande Nicholas DO Primary Care Pro vider Unavailable Anuj Priest DO Primary Care Provider Judy álvarez [facility], Pcp Primary Care Provider Unavailabl e Encounter Details Date Type Department Care Team Description 05/04/2020 Sound Tester Report Medical Records [address] [place] [id number] Dhruv Garcia MD Social History Tobacco Use [...] on filedocumented in this encounter Care Teams Conventional Machinist Relationship Specialty Start Date End Date Yolande Nicholas DO PCP - General Internal Medicine 12/03/18 10/08/20 Anuj Priest DO PCP - General Internal Medicine 10/09/20 [facility], Pcp PCP - General Internal Medicine 06/17/21 documented as of this encounter
--- OUTSIDE RECORDS SUMMARY | 2024-08-26 19:04 | XMS_ITS | Encounter Summary ---
Author Organization [employer] Address 75 [facility] 7t [place] [address] Care Team Providers Care Coin Counter And Wrapper Name Role Phone Sesar Pereyra MD Primary Care Provider +1- [phone] Reason for Visit * Reason Onset Date Comments Referral 01/02/2024 Encounter Details Date Type Department Care Team (Late st Contact Info) Description 01/02/2024 Telephone [facility] MEDICINE [address] [place] [address] Sesar Pereyra MD [address] [place], [place] [phone] Referral Social History Tobacco Use Types Packs/Day [...] - 01/02/2024 10:48 AM EDT Tc from [place] the patients [facility] requesting a referral for a gerontologist and would like to be sent to at [facility] in [place] documented in this encounter Plan of Treatment Upcoming Encounters Date Type Department Care Team (Late st Contact Info) Description 09/11/2024 10:30 AM EDT Office Visit [facility] MED & PEDS [address] [place] [address] Sesar Pereyra MD [address] [place] [address] documented as of this encounter Visit Diagnoses Not on filedocumented in this encounter Additional Health Concerns Assessment Noted Time PHQ-9 Depression Total Score: 16 024 10:59 AM EDT documented as of this encounter Care Teams Coin Counter And Wrapper Relationship Specialty Start Date End Date Sesar Pereyra MD [address] [place] [address] PCP - General Internal Medicine 03/01/21 [facility] 03/22/24 documented as of this encounter
--- OUTSIDE RECORDS SUMMARY | 2024-08-26 19:04 | XMS_ITS | Encounter Summary ---
Author Organization [employer] Address 75 [facility] 7t [place] [address] Care Team Providers Care Quality Assurance Supervisor Body Name Role Phone Sesar Pereyra MD Primary Care Provider +1- [phone] Reason for Visit * Reason Onset Date Comments fyi 05/28/2024 Encounter Details Date Type Department Care Team (Late st Contact Info) Description 05/28/[address] [facility] MEDICINE [address] [place] [address] Sesar Pereyra MD [address] [place], [place] [phone] fyi Social History Tobacco Use Types Packs/Day [...] - 05/28/2024 9:37 AM EST [facility] informing pt verbalized to her that he been taking THD Gummies 2x a day morning and afternoon. Gummies are 10mg per gummy as he's aware of what he's taking. documented in this encounter Plan of Treatment Upcoming Encounters Date Type Department Care Team (Late st Contact Info) Description 09/11/2024 10:30 AM EDT Office Visit [facility] MED & PEDS [address] [place] [address] Sesar Pereyra MD [address] [place] [address] documented as of this encounter Visit Diagnoses Not on filedocumented in this encounter Additional Health Concerns Assessment Noted Time PHQ-9 Depression Total Score: 16 024 10:59 AM EDT documented as of this encounter Care Teams Quality Assurance Supervisor Body Relationship Specialty Start Date End Date Sesar Pereyra MD [address] [place] [address] PCP - General Internal Medicine 03/01/21 [facility] 03/22/24 documented as of this encounter
--- OUTSIDE RECORDS SUMMARY | 2024-08-26 19:04 | XMS_ITS | Encounter Summary ---
Author Organization [facility] Address [address] [place] [address] Care Team Providers Care Dispatch Coordinator Name Role Phone Yolande Nicholas DO Primary Care Pro vider Unavailable Anuj Priest DO Primary Care Provider [facility], Pcp Primary Care Provider Unavailabl e Reason for Visit * Reason Onset Date Comments Faxed Order 03/03/2020 Encounter Details Date Type Department Care Team Description 03/03/2020 Telephone Adult [address] [address] Yolande Nicholas DO Faxed Order Social History [...] on filedocumented in this encounter Care Teams Dispatch Coordinator Relationship Specialty Start Date End Date Yolande Nicholas DO PCP - General Internal Medicine 12/03/18 10/08/20 Anuj Priest DO PCP - General Internal Medicine 10/09/[address] [place] [address], Pcp PCP - General Internal Medicine 06/17/21 documented as of this encounter
--- OUTSIDE RECORDS SUMMARY | 2024-08-26 19:04 | XMS_ITS | Encounter Summary ---
Author [facility] Address [address] [place] [address] Care Team Providers Care Sas Administrator Name Role Phone Annalee Jones MD Primary Care Provider Un available Yolande Nicholas DO Primary Care Pro vider Unavailable Anuj Priest DO Primary Care Provider Judy vailable [facility], Pcp Primary Care Provider Unavailabl e Encounter Details Date Type Department Care Team Description 04/24/2018 Hospital Medical Records [address] [place] [address] Thomas Moise MD Social History Tobacco Use [...] on filedocumented in this encounter Care Teams Sas Administrator Relationship Specialty Start Date End Date Annalee Jones MD PCP - General Internal Medicine 01/06/17 9 Yolande Nicholas DO PCP - General Internal Medicine 12/03/18 10/08/20 Anuj Priest DO PCP - General Internal Medicine 10/09/20 2 Jj, Pcp PCP - General Internal Medicine 06/17/21 documented as of this encounter
--- OUTSIDE RECORDS SUMMARY | 2024-08-26 19:04 | XMS_ITS | Encounter Summary ---
Author Organization [employer] Address 75 [facility] 7t [place] [address] Care Team Providers Care Marina Sales And Service Supervisor Name Role Phone Sesar Pereyra MD Primary Care Provider +1- [phone] Reason for Visit * Reason Comments Med Refill Encounter Details Date Type Department Care Team ([facility] st Contact Info) Description 10/30/2023 Refill [facility] CHC MED & PEDS [address] [place], [place] [phone] Sesar Pereyra MD [address] [place], [place] [phone] PVD (peripheral vascular disease) (CMS/HCC); Longstanding persistent [...] [facility] [address] [place] [address] Sesar Pereyra MD [address] [place] [address] documented as of this encounter Visit Diagnoses Diagnosis PVD (peripheral vascular disease) (CMS/HCC) Unspecified peripheral vascular disease Longstanding persistent atrial fibrillation (CMS/HCC) documented in this encounter Additional Health Concerns Assessment Noted Time PHQ-9 Depression Total Score: 16 024 10:59 AM EDT documented as of this encounter Care Teams Marina Sales And Service Supervisor Relationship Specialty Start Date End Date Sesar Pereyra MD [address] [place] [address] PCP - General Internal Medicine 03/01/21 [facility] 03/22/24 documented as of this encounter
--- OUTSIDE RECORDS SUMMARY | 2024-08-26 19:04 | XMS_ITS | Encounter Summary ---
Author Organization [facility] Address [address] [place] [address] Care Team Providers Care Battery Charger Name Role Phone Annalee Jones MD Primary Care Provider Un available Yolande Nicholas DO Primary Care Pro vider Unavailable Anuj Priest DO Primary Care Provider Judy [facility], Pcp Primary Care Provider Unavailabl e Reason for Visit * Reason Onset Date Comments Office Assistance Feedback 08/27/2018 ortho Encounter Details Date Type Department Care Team Description 08/27/2018 Telephone Adult Medicine [address] [address] [facility] [address] [place] [address] Office Assistance Feedback (ortho) Social History Tobacco Use Types [...] a disc of the MRI [facility] Tax Auditor [facility] Department documented in this encounter Plan of Treatment Not on file documented as of this encounter Visit Diagnoses Not on filedocumented in this encounter Care Teams Battery Charger Relationship Specialty Start Date End Date Annalee Jones MD PCP - General Internal Medicine 01/06/17 9 Yolande Nicholas DO PCP - General Internal Medicine 12/03/18 10/08/20 Anuj Priest DO PCP - General Internal Medicine 10/09/20 2 [facility], Pcp PCP - General Internal Medicine 06/17/21 documented as of this encounter
--- OUTSIDE RECORDS SUMMARY | 2024-08-26 19:04 | XMS_ITS | Clinical Summary ---
Author Organization [employer] Address [address] [facility] [address] [place] [address] Care Team Providers Care C Application Developer Name Role Phone Sesar Pereyra MD [...] 24 025 Discontinued dronedarone (Multaq) 400 MG tabletIndicatio ns:Paroxysmal atrial [...] Assessment & Plan (04/03/2024 3:48 PM EST): Sitxo early cellulitis. Keep leg elevated. Low NA [...] considered Sleep disorder 02/02/2015 Overview (01/22/2024): Saw [facility] sleep on 01/15/2015: Dr. Johnson Likely DILLAN sleep study ordered. Given that he has RLS, He may have periodic limb movement disorder which can be checked for in the study. Check ferritin. Will await sleep study. Depression with anxiety 04/01/2014 Overview (06/16/2022): Dr. Pradhan at [facility]. Is going to establish care at a [...] Sees this doctor once a year at [facility]. 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 07/14/2005 Overview (01/22/2024): Stent on right and fem- fem bypass on left IMO update Depressive disorder 07/14/2005 Alcohol abuse, in remission 06/19/2005 Encounters Date Type Department Care Team Description 08/26/2024 Orders Only GENERIC EXTERNAL DATA DEPARTMENT Provider, Generic External Data 08/26/2024 Telephone [facility] [address] [place] [address] Sesar Pereyra MD Follow-up 08/12/2024 Refill [facility] [address] [place] [address] Loyda Jacobson, CLAUDIA 08/12/2024 Refill [facility] [address] [place] [phone] Sesar Pereyra MD Memory disturbance 08/08/2024 Telephone [facility] [address] [place] [address] Loyda Jacobson RN Med Refill 08/08/[address] [address] Sesar Pereyra MD Med Refill 08/07/2024 Telephone [facility] [address] [place] [address] Sesar Pereyra MD PSG ORDER 08/02/2024 Refill [facility] [address] [place] [address] Sesar Pereyra MD Primary insomnia; Paroxysmal atrial fibrillation (CMS/HCC) 08/02/2024 Telephone [facility] [address] [place] [address] Sesar Pereyra MD Results 08/01/2024 Orders Only [facility] [address] [place], [place] [phone] Sesar Pereyra MD Sleep disorder (Primary Dx); Snoring 07/24/2024 2:15 PM EDT Office Visit [facility] [address] [place], [place] [phone] Sesar Pereyra MD Multifocal pneumonia (Primary Dx); Dislocation of left ulnohumeral joint, initial encounter; Essential hypertension; Dietary counseling; Exercise counseling; Class 1 obesity due to excess calories with serious comorbidity and body mass index (BMI) of 32.0 to 32.9 in adult 07/24/2024 Travel 07/22/[address] [address] Sesar Pereyra MD ER Follow-up 07/11/2024 Orders Only GENERIC EXTERNAL DATA DEPARTMENT Provider, Generic External Data 07/10/2024 Orders Only [address] [address] Sesar Foley MD Memory disturbance (Primary Dx) 07/10/2024 Telephone [facility] [address] [place] [address] Sesar Pereyra MD 07/09/2024 Telephone [facility] [address] [place] [address] Gracie Jewell RN NTTS OUTREACT CALL 07/04/2024 Refill [facility] [address] [place] [address] Sesar Pereyra MD 06/24/2024 Orders Only [address] [address] Sesar Pereyra MD Paroxysmal atrial fibrillation (CMS/HCC) (Primary Dx) 06/21/[address] [address] Sesar Pereyra MD Medication Question 06/19/2024 Orders Only GENERIC EXTERNAL DATA DEPARTMENT Provider, Generic External Data 06/13/2024 1:00 PM EST Office Visit [facility] [address] [place] [address] Sesar Pereyra MD Kidney stone (Primary Dx); Primary hypertension; Low back pain at multiple sites; Tinnitus of right ear; Lower urinary tract symptoms 06/13/2024 Travel 06/12/2024 Orders Only GENERIC EXTERNAL DATA DEPARTMENT Provider, Generic External Data 05/30/[address] [address] Sesar Pereyra MD Lab Orders; Referral 05/30/[address] [address] Sesar Pereyra MD 05/28/[address] [address] Sesar Pereyra MD fyi from Last 3 Months Immunizations Name Administration [...] [facility] [address] [place] [address] Sesar Pereyra MD [address] [place], [place] [phone] Health Maintenance Due Date Last Done Comments [...] AUTO DIFFERENTIAL Routine 08/26/2024 1:18 PM EDT MAGNESIUM Routine 08/26/2024 1:17 PM EDT LIPASE Routine 08/26/2024 1:17 PM EDT COMPREHENSIVE METABOLIC PANEL Routine 08/26/2024 1:17 PM EDT SARS COV2/INFLUENZA A/B AND RSV RNA QL NAAT Routine 08/26/2024 1:17 PM EDT XR CHEST 2 VIEWS Routine 08/26/2024 12:3 5 PM EDT XR CHEST 2 VIEWS Routine 08/01/2024 11:0 [...] Recently Relevant to Health Maintenance Results * Hold Lavender - Possible Hematology (08/26/2024 5:28 PM EDT) Hold Lavender - Possible Hematololgy SEE NOTE [facility] Comment:Specimen will be hel d untested for 8 hours. Call Hematologyif testing is desired. 08/26/2024 5:28 PM EDT 08/26/2024 5:34 PM EDT us Generic External Data Provider HISTORICAL/NON OR DERABLE LABS Final Result [facility] [address] [place] [address] [phone] * (ABNORMAL) B Type Natriuretic Peptide (BNP) (08/26/2024 5:16 PM EDT) [facility] B Type Natriuretic Peptide 379(H) <100 pg/mL [facility] 08/26/2024 5:16 PM EDT 08/26/2024 5:18 PM EDT Generic External Data Provider LAB BLOOD ORDERAB LES Final Result Performing Organization Address City/[facility] Co de Phone Number [facility] [address] [place] [phone] * Lactic Acid (08/26/2024 5:10 PM EDT) Only the most recent of2 resultswithin the time period is included. [facility] Lactic Acid 1.2 0.5 - 2.0 mmol/L [facility] 08/26/2024 5:10 PM EDT 08/26/2024 5:15 PM EDT Generic External Data Provider LAB BLOOD ORDERAB LES Final Result Performing Organization Address [email or web address]] de Phone Number [facility] [address] [place] [phone] * (ABNORMAL) CBC auto differential (08/26/2024 1:18 PM EDT) Only the most recent of3 resultswithin the time period is included. [facility] White Blood Count 12.2(H) 4.8 - 10.8 X10*3/uL [facility] Red Blood Count 4.34(L) 4.60 - 5.80 X10*6/uL [facility] Hemoglobin 13.5(L) 14.0 - 18.0 g/dl [facility] Hematocrit 41.5(L) 42.0 - 52.0 % [facility] Mean Corpuscular Volume 95.6 80.0 - 98.0 fL [facility] Mean Corpuscular Hemoglobin 31.1 27.0 - 33.0 pg [facility] Mean Corpuscular HGB Conc 32.5 31.0 - 36.0 g/dl [facility] Red Cell Distribution Width 15.9 11.0 - 16.0 % [facility] Platelet Count 255 160 - 400 X10*3/uL [facility] Mean Platelet Volume 10.2 9.4 - 12.4 fL [facility] Neutrophils Percent Auto 88.1(H) 45 - 73 % [facility] Imm Gran Pct Auto 0.4 0.0 - 0.4 % [facility] Lymphocytes Percent Auto 3.6(L) 20 - 40 % [facility] Monocytes Percent Auto 7.6 2 - 11 % [facility] Eosinophils Percent Auto 0.0 0 - 4 % [facility] Basophils Percent Auto 0.3 0 - 2 % [facility] NRBC Pct Auto 0.0 0.0 - 0.2 /100WBC [facility] Neutrophils Absolute Auto 10.7(H) 2.0 - 8.3 x10*3/uL [facility] Imm Gran Abs Auto 0.05(H) 0.00 - 0.03 X10*3/uL [facility] Lymphocytes Absolute Auto 0.4(L) 1.2 - 4.9 X10*3/uL [facility] Monocytes Absolute Auto 0.9 0.1 - 1.2 X10*3/uL [facility] Eosinophils Absolute Auto 0.0 0.0 - 0.4 X10*3/uL [facility] Basophils Absolute Auto 0.0 0.0 - 0.2 X10*3/uL [facility] NRBC Abs Auto 0.000 0.0 - 0.012 X10*3/uL [facility] 08/26/2024 1:18 PM EDT 08/26/2024 1:21 PM EDT us Generic External Data Provider LAB BLOOD ORDERAB LES Final Result [facility] [address] [place] [phone] * SARS-CoV-2 RNA, Influenza A/B, and RSV RNA, Ql NAAT (08/26/2024 1:17 PM EDT) Pathologist [facility] Influenza A PCR NEGATIVE Negative [facility] Influenza B PCR NEGATIVE Negative [facility] Resp Syncy Virus RNA Qual PCR NEGATIVE Negative [facility] SARS COV2 PCR NEGATIVE Negative [facility] Comment:All test results mus t [...] use by authorized laboratories.Testing performed on the [employer] GeneXpert utilizingreal-time RT-PCR.All SARS CoV2 and positive influenza A/B results arereported to [facility]. 08/26/2024 1:17 PM EDT 08/26/2024 1:21 PM EDT Generic External Data Provider LAB MICROBIOLOGY - GENERAL ORDERABLES Final Result Performing Organization Address [facility]/ZIP Co de Phone Number [facility] [address] [place] [phone] * Magnesium (08/26/2024 1:17 PM EDT) Pathologist [facility] Magnesium 1.9 1.6 - 2.6 mg/dL [facility] 08/26/2024 1:17 PM EDT 08/26/2024 1:21 PM EDT Generic External Data Provider LAB BLOOD ORDERAB LES Final Result Performing Organization Address [facility]/ZIP Co de Phone Number [facility] [address] [place] [phone] * Lipase (08/26/2024 1:17 PM EDT) Only the most recent of2 resultswithin the time period is included. Lipase 9 8 - 78 U/L [facility] 08/26/2024 1:17 PM EDT 08/26/2024 1:21 PM EDT us Generic External Data Provider LAB BLOOD ORDERAB LES Final Result [facility] [address] [place] [address] [phone] * (ABNORMAL) Comprehensive Metabolic Panel (08/26/2024 1:17 PM EDT) Only the most recent of2 resultswithin the time period is included. Sodium 135 135 - 145 mmol/L [facility] Potassium 4.5 3.3 - 5.1 mmol/L [facility] Comment:Slight Hemolysis.Int erpret result with caution. Chloride 106 96 - 108 mmol/L [facility] Carbon Dioxide 19(L) 22 - 29 mmol/L [facility] Anion Gap 15 12 - 20 [facility] Urea Nitrogen (BUN) 20(H) 9 - 16 mg/dL [facility] Creatinine, Serum 1.16 0.5 - 1.4 mg/dL [facility] Creatinine Clr Calc Pharmacy 68.8 [facility] Comment:eGFR (calculated fro m the MDRD study equation) and eCrCl(calculated from the Cockcroft-Gault equation) are based ondifferent parameters and may not yield comparable results.If eCrCl result is absurd, please check patient'sheight/weight. Estimated Glomerular Filt Rate >60 [facility] Comment:Chronic Kidney Disea se: Estimated GFR < 60 mL/min/1.37y9Pizyxr Kidney Disease: Estimated GFR < 15 mL/min/1.73m2 Glucose 97 60 - 115 mg/dL [facility] Calcium 9.2 8.4 - 10.2 mg/dL [facility] Bilirubin, Total 0.7 0.0 - 1.0 mg/dL [facility] Aspartate Amino Transferase 27 5 - 37 U/L [facility] Comment:Slight Hemolysis.Int erpret result with caution. Alanine Aminotransferase 11 0 - 40 U/L [facility] Total Protein 7.0 6.5 - 8.0 g/dL [facility] Albumin Level 4.0 3.5 - 5.0 g/dL [facility] Alkaline Phosphatase 111 39 - 117 U/L [facility] 08/26/2024 1:17 PM EDT 08/26/2024 1:21 PM EDT us Generic External Data Provider LAB BLOOD ORDERAB LES Final Result [facility] [address] [place] [address] [phone] * XR Chest 2 Views (08/26/2024 12:35 PM EDT) Only the most recent of2 resultswithin the time period is included. Anatomical Region Laterality Modality Chest Radiographic Homa ging 08/26/2024 12:3 5 PM EDT Narrative 08/26/2024 12:50 PM EDT ? [facility] ?[address] ?[place] [address] ?XRay Report ? Signed ? Patient: Tho,Alex ?MR#: [id number] ?? [id number] ? : 1945 ?Acct:[id number] ? Age/Sex: 79 / M ?ADM Date: // ? Loc: HO.ED ? Attending Dr: ? Ordering Physician: Lonny Delgado ?? Date of Service: 04 ?? Procedure(s): XR chest 2V ?? Accession Number(s): [id number] ? cc: Sesar Pereyra MD; Lonny Delgado [...] DD/ 1235 ? TD/TT: 08/26/24 1240 ? Rivet Tapping Machine Operator: ? Procedure Note Hernandez, Alonzo - 08/26/2024 [place] [address] XRay Report Signed Patient: Ronald Nettles#: [id number] : 1945cct:[id number] Age/Sex: 79 / MADM Date: 08/26/24 Loc: HO.ED Attending Dr: Ordering Physician: Lonny Delgado Date of Service: 08/26/24 Procedure(s): XR chest 2V Accession Number(s): [id number] cc: Sesar Pereyra MD; Lonny Delgado EXAMINATION: [...] Jaquan Guillen MD 08/26/2024 12:48 PM EDT RP Dictated By: Jaquan Guillen MD Signed By: <Electronically signed by Jaquan Guillen MD in OV> 08/26/24 1248 DD/ 1235 TD/TT: 08/26/24 1240 Rivet Tapping Machine Operator: [facility] External Provider IMG XR PROCEDURES Final Result * XR Shoulder 2+ Views Left (08/01/2024 10:00 AM EDT) Only the most recent of2 resultswithin the time period is included. Anatomical Region Laterality Modality Upper Extremities, Shoulder Left Radi ographic Imaging 08/01/2024 10:0 0 AM EDT Narrative 08/02/2024 8:13 AM EDT ? [facility] ? [address] ?[place] [address] ?XRay Report ? Signed ? Patient: Alex Nettles ?MR#: [id number] ?? [id number] ? : 1945 ?Acct:[id number] ? Age/Sex: 79 / M ?ADM Date: 08/01/24 ? Loc: HO.HOSX ? Attending Dr: Royce Kothari MD ? Ordering Physician: Royce Kothari MD ?? Date of Service: 08/01/24 ?? Procedure(s): XR shoulder LT min 2V ?? Accession Number(s): [id number] ? cc: Sesar Pereyra MD; Royce Kothari [...] DD/ 1000 ? TD/TT: 08/01/24 1005 ? Rivet Tapping Machine Operator: ? Procedure Note Hernandez, Image - 08/02/2024 [facility] [address] [place] [address] [address] [place] [address] XRay Report Signed Patient: Alex NettlesMR#: [id number] : 1945cct:[id number] Age/Sex: 79 / MADM Date: 08/01/24 Loc: YANI.SUSANAX Attending Dr: Royce Kothari MD Ordering Physician: Royce Kothari MD Date of Service: 08/01/24 Procedure(s): XR shoulder LT min 2V Accession Number(s): [id number] cc: Sesar Pereyar MD; Royce Kothari MD EXAMINATION: XR SHOULDER, [...] 08/02/24 0811 DD/ 1000 TD/TT: 08/01/24 1005 Rivet Tapping Machine Operator: [facility] External Provider IMG XR PROCEDURES Final Result * VENOUS BLOOD GAS (07/11/2024 11:38 AM EDT) VBG pH 7.40 7.32 - 7.43 [facility] Comment:METER #: [id number] additional_comment: CbHernaso VBG PCO2 41 mmHg [facility] Comment:METER #: [id number] additional_comment: CbHernaso VBG PO2 28 mmHg [facility] Comment:METER #: [id number] additional_comment: CbHernaso VBG Base Excess 1.4 mmol/L [facility] Comment:METER #: [id number] additional_comment: CbHernaso VBG HCO3 26 22 - 26 mmol/L [facility] Comment:METER #: [id number] additional_comment: CbHernaso O2 Sat, Garrick 39.0 % [facility] Comment:METER #: [id number] additional_comment: CbHernaso 07/11/2024 11:3 8 AM EDT 07/11/2024 11:41 AM EDT Generic External Data Provider LAB BLOOD ORDERAB LES Final Result [facility] [address] [place] [address] [phone] * HOLD LT BLUE - POSSIBLE COAG (07/11/2024 11:38 AM EDT) Hold Lt Blue - Possible Coag SEE NOTE [facility] Comment:Specimen will be hel d untested for 4 hours. Call Hematologyif testing is desired. 07/11/2024 11:3 8 AM EDT 07/11/2024 11:47 AM EDT us Generic External Data Provider LAB BLOOD ORDERAB LES Final Result [facility] [address] [place] [address] [phone] * XR Chest 1 View (07/11/2024 11:01 AM EDT) Anatomical Region Laterality Modality Chest Radiographic Homa ging 07/11/2024 11:0 1 AM EDT Narrative 07/11/2024 12:14 PM EDT ? [facility] ?[address] ?[place] [address] ?XRay Report ? Signed ? Patient: Tho,Alex ?MR#: [id number] ?? [id number] ? : 1945 ?Acct:[id number] ? Age/Sex: 79 / M ?ADM Date: 07/11/24 ? Loc: HO.ED ? Attending Dr: ? Ordering Physician: Desirae Rebolledo MD ?? Date of Service: 07/11/24 ?? Procedure(s): XR chest 1V ?? Accession Number(s): [id number] ? cc: Desirae Rebolledo MD; Sesar Pereyra [...] DD/ 1101 ? TD/TT: 07/11/24 1202 ? Rivet Tapping Machine Operator: ? Procedure Note Donotuseinterpreter, Image - 07/11/[address] [address] XRay Report Signed Patient: Alex NettlesMR#: [id number] : 1945cct:[id number] Age/Sex: 79 / MADM Date: 07/11/24 Loc: HO.ED Attending Dr: Ordering Physician: Desirae Rebolledo MD Date of Service: 07/11/24 Procedure(s): XR chest 1V Accession Number(s): [id number] cc: Desirae Rebolledo MD; Sesar Pereyra MD [...] 07/11/24 1211 DD/ 1101 TD/TT: 07/11/24 1202 Rivet Tapping Machine Operator: [facility] External Provider IMG XR PROCEDURES Edited Result - Final * FL Guidance in OR (06/21/2024 5:50 PM EST) Anatomical Region Laterality Modality X-Ray Angiograph y 06/21/2024 5:50 PM EST Narrative 06/24/2024 8:13 AM EST ? [facility] ?[address] ?[place] [address] ? Fluoroscopy Report ? Signed ? Patient: Tho,Alex ?MR#: [id number] ?? [id number] ? : 1945 ?Acct:[id number] ? Age/Sex: 79 / M ?ADM Date: 06/19/24 ? Loc: HO.S3 ?363-2 ? Attending Dr: Tania Bernabe SHOT BLAST EQUIPMENT OPERATOR ? Ordering Physician: Royce Kothari MD ?? Date of Service: 06/21/24 ?? Procedure(s): FL guidance in OR ?? Accession Number(s): [id number] ? cc: Sesar Pereyra MD; Royce Kothari [...] 1750 ? TD/TT: 06/21/24 1750 ? Rivet Tapping Machine Operator: ? Procedure Note Alonzo Ng - 06/24/[address] [address] Fluoroscopy Report Signed Patient: Ronald Nettles#: [id number] : 7Acct:[id number] Age/Sex: 79 / MADM Date: 06/19/24 Loc: HO.S3 363-[address]: Tania Bernabe NP Ordering Physician: Royce Kothari MD Date of Service: 06/21/24 Procedure(s): FL guidance in OR Accession Number(s): [id number] cc: Sesar Pereyra MD; Royce Kothari MD [...] 0810 DD/ 1750 TD/TT: 06/21/24 1750 Rivet Tapping Machine Operator: [facility] External Provider IMG IR PROCEDURES Final Result * CT Humerus (06/19/2024 8:00 PM EST) Anatomical Region Laterality Modality Computed Tomogra phy 06/19/2024 8:00 PM EST Narrative 06/19/2024 8:02 PM EST ? [facility] ?[address] ?[place] [address] ? CT Scan Report ? Signed ? Patient: Tho,Alex ?MR#: [id number] ?? [id number] ? : 1945 ?Acct:[id number] ? Age/Sex: 79 / M ?ADM Date: 02/19/25 ? Loc: HO.ED ? Attending Dr: ? Ordering Physician: Angela Moura MD ?? Date of Service: 06/19/24 ?? Procedure(s): CT humerus LT wo IV con ?? Accession Number(s): [id number] ? cc: Sesar Pereyra MD; Angela Moura MD ? Report Number: ?? [id number]: Total DLP = ??192.00 mGy-cm ? CLINICAL [...] of the dorsal margin of the glenoid. Lujdkndv-cs-qxqpc ?? 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 ?? 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 ?? Please refer to separate report for x-rays of the partially included elbow. ?? Mild imaged rib deformities in the kmyio-eo-xxnz appear old/chronic. ? Impression: ?? 1. Anterior [...] DD/ 99 ? TD/TT: 06/19/241999 ? Rivet Tapping Machine Operator: ? Procedure Note Hernandez, Image - 06/20/[address] [address] [address] Scan Report Signed Patient: Ronald Nettles#: [id number] : 7Acct:[id number] Age/Sex: 79 / MADM Date: 06/19/24 Loc: HO.ED Attending Dr: Ordering Physician: Angela Moura MD Date of Service: 06/19/24 Procedure(s): CT humerus LT wo IV con Accession Number(s): [id number] cc: Sesar Pereyra MD; Angela Moura MD Report Number: [id number]: Total DLP = 192.00 mGy-cm CLINICAL HISTORY: [...] of the dorsal margin of the glenoid. Pnfjxjlt-ti-pgvgi effusion with lipohemarthrosis of the left glenohumeral joint. 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 Please refer to separate report for x-rays of the partially includedelbow. Mild imaged rib deformities in the axepp-hp-eusv appear old/chronic. Impression: 1. Anterior dislocation of [...] OV> 06/19/242001 DD/ 99 TD/TT: 06/19/241999 Rivet Tapping Machine Operator: [facility] External Provider IMG CT PROCEDURES Final Result * (ABNORMAL) Prothrombin Time-INR (06/19/2024 7:57 PM EST) Prothrombin Time 16.0(H) 10.9 - 12.4 SEC [facility] INTERNATIONAL NORM RATIO 1.4(H) 0.9 - 1.1 [facility] Comment:INTERNATIONAL NORMAL IZED RATIO (INR) [...] Provider LAB BLOOD ORDERAB LES Final Result [facility] [address] [place] [address] [phone] * XR Elbow 3+ Views Left (06/19/2024 7:16 PM EST) Anatomical Region Laterality Modality Upper Extremities, Elbow Left Radiogr aphic Imaging 06/19/2024 7:16 PM EST Narrative 06/19/2024 7:18 PM EST ? [facility] ?[address] ?[place] [address] ?XRay Report ? Signed ? Patient: Alex Nettles ?MR#: [id number] ?? [id number] ? : 1945 ?Acct:[id number] ? Age/Sex: 79 / M ?ADM Date: 06/19/24 ? Loc: HO.ED ? Attending Dr: ? Ordering Physician: Angela Moura MD ?? Date of Service: 06/19/24 ?? Procedure(s): XR elbow LT min 3V ?? Accession Number(s): [id number] ? cc: Sesar Pereyra MD; Angela Moura [...] DD/ 15 ? TD/TT: 06/19/241915 ? Rivet Tapping Machine Operator: ? Procedure Note Doncathieter, Image - 06/19/[address] [address] XRay Report Signed Patient: Ronald Nettles#: [id number] : 1945cct:[id number] Age/Sex: 79 / MADM Date: 06/19/24 Loc: HO.ED Attending Dr: Ordering Physician: Angela Moura MD Date of Service: 06/19/24 Procedure(s): XR elbow LT min 3V Accession Number(s): [id number] cc: Sesar Pereyra MD; Angela Moura MD [...] OV> 06/19/241916 DD/ 15 TD/TT: 06/19/241915 Rivet Tapping Machine Operator: us [facility] External Provider IMG XR PROCEDURES Final Result * CT Head w/o Contrast (06/19/2024 7:12 PM EST) Anatomical Region Laterality Modality Head, Neck Computed Tomogra phy 06/19/2024 7:12 PM EST Narrative 06/19/2024 7:14 PM EST ? [facility] ?[address] ?[place], [place] [address] ? CT Scan Report ? Signed ? Patient: Alex Nettles ?MR#: [id number] ?? [id number] ? : 1945 ?Acct:[id number] ? Age/Sex: 79 / M ?ADM Date: 06/19/24 ? Loc: HO.ED ? Attending Dr: ? Ordering Physician: Lonny Delgado ?? Date of Service: 06/19/24 ?? Procedure(s): CT head/brain wo IV con ?? Accession Number(s): [id number] ? cc: Sesar Pereyra MD; Lonny Delgado ? Report Number: ?? [id number]: Total DLP = ??652.00 mGy-cm ? CLINICAL [...] DD/ 11 ? TD/TT: 06/19/241911 ? Rivet Tapping Machine Operator: ? Procedure Note Donotuseinterpreter, Image - 06/19/[address] [address] [address] Scan Report Signed Patient: Ronald Nettles#: [id number] : 1945cct:[id number] Age/Sex: 79 / MADM Date: 06/19/24 Loc: HO.ED Attending Dr: Ordering Physician: Lonny Delgado Date of Service: 06/19/24 Procedure(s): CT head/brain wo IV con Accession Number(s): [id number] cc: Sesar Pereyra MD; Lonny Delgado Report Number: [id number]: Total DLP = 652.00 mGy-cm CLINICAL HISTORY: [...] OV> 06/19/241912 DD/ 11 TD/TT: 06/19/241911 Rivet Tapping Machine Operator: [facility] External Provider IMG CT PROCEDURES Final Result * Creatinine, Serum (06/12/2024 12:09 PM EST) Creatinine, Serum 1.13 0.5 - 1.4 mg/dL [facility] Estimated Glomerular Filt Rate >60 [facility] Comment:Chronic Kidney Disea se: Estimated GFR < 60 mL/min/1.67t6Siqvur Kidney Disease: Estimated GFR < 15 mL/min/1.73m2 06/12/2024 12:0 9 PM EST 06/12/2024 12:14 PM EST Generic External Data Provider LAB BLOOD ORDERAB LES Final Result Performing Organization Address [facility] [[email or web address]] de Phone Number [facility] [address] [place] [phone] * (ABNORMAL) BUN (Blood Urea Nitrogen) (06/12/2024 12:09 PM EST) Urea Nitrogen (BUN) 18(H) 9 - 16 mg/dL [facility] 06/12/2024 12:0 9 PM EST 06/12/2024 12:14 PM EST Generic External Data Provider LAB BLOOD ORDERAB LES Final Result Performing Organization Address [facility] Phone Number [facility] [address] [place] [address] [phone] * Calcium (06/12/2024 12:09 PM EST) Calcium 9.1 8.4 - 10.2 mg/dL [facility] 06/12/2024 12:0 9 PM EST 06/12/2024 12:14 PM EST Generic External Data Provider LAB BLOOD ORDERAB LES Final Result Performing Organization Address [facility] de Phone Number [facility] [address] [place] [address] [phone] * (ABNORMAL) Electrolyte Panel (06/12/2024 12:09 PM EST) Sodium 142 135 - 145 mmol/L [facility] Potassium 4.0 3.3 - 5.1 mmol/L [facility] Comment:Slight Hemolysis.Int erpret result with caution. Chloride 109(H) 96 - 108 mmol/L [facility] Carbon Dioxide 24 22 - 29 mmol/L [facility] Anion Gap 13 12 - 20 [facility] 06/12/2024 12:0 9 PM EST 06/12/2024 12:14 PM EST us Generic External Data Provider LAB BLOOD ORDERAB LES Final Result Performing Organization Address [facility] Co de Phone Number [facility] [address] [place] [address] [phone] * Hepatitis C Ab (07/19/2023 11:42 AM EDT) [facility] Hepatitis C Antibody Nonreactive Nonreactive [facility] Comment:Antibodies to HCV no t detected; does not exclude early acuteHCV infection. Blood Venous blood specimen / Unknown 07/19/2023 11:42 AM EDT 07/19/2023 2:25 PM EDT us Sesar Pereyra MD LAB BLOOD ORDERABLES Final Result Performing Organization Address [facility] Phone Number [facility] [address] [place] [address] [phone] * (ABNORMAL) LIPID PANEL, STANDARD (03/05/2021 9:16 AM EDT) Pathologist [facility] Chol/HDLC Ratio 4.1 <5.0 (calc) [...] ?? Ulisses MCDANIEL et al. MANDEEP. 2013;310(19): 1895-1554 ?? ([email or web address]) Non-HDL Cholesterol 104 <130 mg/dL (calc) [place] [...] [facility] [address] from Last 3 Months or Most Recently Relevant to Health Maintenance Insurance A[employer] MEDICARE REPLACEMENT [facility] FULL Care Teams C Application Developer Relationship Specialty Start Date End Date Sesar Pereyra MD [address] [place] [address] PCP - General Internal Medicine [facility]
--- OUTSIDE RECORDS SUMMARY | 2024-08-26 19:04 | XMS_ITS | Encounter Summary ---
Author Organization [facility] Address [address] [place] [address] Care Team Providers Care Nuclear Plant Technical Advisor Name Role Phone Yolande Nicholas DO Primary Care Pro vider Unavailable Anuj Priest DO Primary Care Provider [facility], Pcp Primary Care Provider Unavailabl e Reason for Visit * Reason Onset Date Comments Faxed Refill 06/06/2019 HYDROXYZINE Encounter Details Date Type Department Care Team Description 06/06/2019 Refill Adult Medicine [address] [address] Yolande Nicholas DO Faxed Refill (HYDROXYZINE ) [...] MEDICARE / Plan: MEDICARE FFS $5 [facility] [id number] / Product Type: MEDICARE [id number] documented in this encounter Plan of Treatment Not on file documented as of this encounter Visit Diagnoses Not on filedocumented in this encounter Care Teams Nuclear Plant Technical Advisor Relationship Specialty Start Date End Date Yolande Nicholas DO PCP - General Internal Medicine 12/03/18 10/08/20 Anuj Priest DO PCP - General Internal Medicine 10/09/[address] [place] [address], Pcp PCP - General Internal Medicine 06/17/21 documented as of this encounter
--- OUTSIDE RECORDS SUMMARY | 2024-08-26 19:04 | XMS_ITS | Clinical Summary ---
Author Organization [facility] Address [address] [place] [address] Care Team Providers Care Electric Blasting Cap Assembler Name Role Phone Nuha Galvin PA-C Primary Care Provider [phone] Source Comments PLEASE NOTE, if this patient [...] Date Sleep disorder 02/02/2015 Overview (02/02/2015): Saw [facility] and sleep on 01/15/2015: Dr. Johnson [...] once a year. In remission Seen at [facility] urology Depression with anxiety 04/01/2014 Overview (04/01/2014): Dr. Pradhan at [facility]. Is going to establish care at a new facility. 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 Hensley in 2006. Sees this doctor once a year at [facility]. Follows up with this facility every 6 months. 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
--- OUTSIDE RECORDS SUMMARY | 2024-08-26 19:04 | XMS_ITS | Encounter Summary ---
Author Organization [facility] Address [address] [place] [address] Care Team Providers Care Day Care Home Provider Name Role Phone Yolande Nicholas DO Primary Care Pro vider Unavailable Anuj Priest DO Primary Care Provider [facility], Pcp [facility] Encounter Details Date Type Department Care Team Description 03/03/2020 Pt. Non Urgent Medic al Question Adult Medicine [address] [address] Yolande Nicholas DO Social History Tobacco Use [...] at 8:00 AM, Dr Argueta/Vascular Surgeon @ [facility] has ordered a US LOWER EXTREMITY ARTERIES (GRANT) PHSIO COMPLETE BILAT for Arun. *Please explain what this is. * 9:00 AM Office visit with Dr. Argueta. *Shall we instruct Dr. Argueta to send all reports to Dr. Alvarez? documented in this encounter Plan of Treatment Not on file documented as of this encounter Visit Diagnoses Not on filedocumented in this encounter Care Teams Day Care Home Provider Relationship Specialty Start Date End Date Yolande Nicholas DO PCP - General Internal Medicine 12/03/18 10/08/20 Anuj Priest DO PCP - General Internal Medicine 10/09/[address] [place] [address], Pcp PCP - General Internal Medicine 06/17/21 documented as of this encounter
--- OUTSIDE RECORDS SUMMARY | 2024-08-26 19:04 | XMS_ITS | Encounter Summary ---
Author Organization [employer] Address [address] [facility] 7t [place] [address] Care Team Providers Care School Bus Attendant Name Role Phone Sesar Pereyra MD Primary Care Provider [phone] Reason for Visit * Reason Onset Date Comments Med Refill 08/08/2024 Encounter Details Date Type Department Care Team (Late st Contact Info) Description 08/08/2024 Telephone [facility] [address] [place] [address] Sesar Pereyra MD [address] [place] [address] Med Refill Social History Tobacco Use Types [...] 0.5 MG tablet To be sent to: [facility] [address] [facility] [place] - [address] [place] [address] STE[place] documented in this encounter Plan of Treatment Upcoming Encounters Date Type Department Care Team (Late st Contact Info) Description 09/11/2024 10:30 AM EDT Office Visit [facility] [address] [place] [address] Sesar Pereyra MD [address] [place] [address] documented as of this encounter Visit Diagnoses Not on filedocumented in this encounter Additional Health Concerns Assessment Noted Time PHQ-9 Depression Total Score: 6 07/25/19 25 3:22 PM EDT documented as of this encounter Care Teams School Bus Attendant Relationship Specialty Start Date End Date Sesar Pereyra MD [address] [place] [address] PCP - General Internal Medicine 03/01/21 [facility] 03/22/24 documented as of this encounter
--- OUTSIDE RECORDS SUMMARY | 2024-08-26 19:04 | XMS_ITS | Encounter Summary ---
Author Organization [facility] Address [address] [place] [address] Care Team Providers Care Vp Production Name Role Phone Yolande Nicholas DO Primary Care Pro vider Unavailable Anuj Priest DO Primary Care Provider Judy álvarez [facility], Pcp Primary Care Provider Unavailabl e Encounter Details Date Type Department Care Team Description 03/06/2019 Assistant Women'S Rowing Coach Report Medical Records [address] [place] [address] Adilia Navarro PA-C Social History Tobacco Use [...] on filedocumented in this encounter Care Teams Vp Production Relationship Specialty Start Date End Date Yolande Nicholas DO PCP - General Internal Medicine 12/03/18 10/08/20 Anuj Priest DO PCP - General Internal Medicine 10/09/20 2 Jj, Pcp PCP - General Internal Medicine 06/17/21 documented as of this encounter
--- OUTSIDE RECORDS SUMMARY | 2024-08-26 19:04 | XMS_ITS | Encounter Summary ---
Author Organization [employer] Address [address] [facility] 7t [place] [address] Care Team Providers Care Lute Packer Or Applier Name Role Phone Sesar Pereyra MD Primary Care Provider [phone] Encounter Details Date Type Department Care Team ([facility] st Contact Info) Description 05/30/2024 Telephone [facility] [address] [place] [address] Sesar Pereyra MD [address] [place] [address] Social History Tobacco Use Types Packs/Day Years [...] [facility] [address] [place] [address] Sesar Pereyra MD [address] [place] [address] documented as of this encounter Visit Diagnoses Not on filedocumented in this encounter Additional Health Concerns Assessment Noted Time PHQ-9 Depression Total Score: 16 024 10:59 AM EDT documented as of this encounter Care Teams Lute Packer Or Applier Relationship Specialty Start Date End Date Sesar Pereyra MD [address] [place] [address] PCP - General Internal Medicine 03/01/21 [facility] documented as of this encounter
--- OUTSIDE RECORDS SUMMARY | 2024-08-26 19:04 | XMS_ITS | Encounter Summary ---
Author Organization [facility] Address [address] [place] [address] Care Team Providers Care Spike Machine Feeder Name Role Phone Ghassan Burciaga MD Primary Care Provider Unavail able Pierre Arevalo MD Primary Care Provider Judy vailable Gerson Dawson MD Primary Care Provider Unavail able [facility], Pcp Primary Care Provider Unavailabl Coleman Sampson MD Primary Care Provider Unavaila Ayo Demarco MD Primary Care Provider Annalee Jones MD Primary Care Provider Un available Pascual Nicholasabela DO Primary Care Pro vider Unavailable Anuj Priest DO Primary Care Provider Judy vailable [facility], Pcp Primary Care Provider Unavailabl e Encounter Details Date Type Department Care Team Description 10/12/2009 Controlled Substance Contract with [facility] Medical Records [address] [place] [address] Abstract, Provider Social History Tobacco Use Types [...] on filedocumented in this encounter Care Teams Spike Machine Feeder Relationship Specialty Start Date End Date Ghassan Burciaga MD PCP - General 07/24/00 05/06/13 Pierre Arevalo MD PCP - General Internal Medicine 05/07/13 4 Gerson Dawson MD PCP - General Internal Medicine 01/30/14 03/20/14 [facility], Pcp PCP - General Internal Medicine 03/21/14 05/06/14 Coleman Mccarthy MD PCP - General Internal Medicine 05/07/14 07/18/16 Ayo Carpio MD [address] [place] [address] PCP - General Internal Medicine 07/19/16 01/05/17 Annalee Jones MD [address] [place] [address] PCP - General Internal Medicine 01/06/17 12/02/18 Yolande Nicholas DO [address] [place] [address] PCP - General Internal Medicine 12/03/18 10/08/20 Anuj Priest DO [address] [place] [address] PCP - General Internal Medicine 10/09/20 06/16/21 [facility], Pcp PCP - General Internal Medicine 06/17/21 documented as of this encounter
--- OUTSIDE RECORDS SUMMARY | 2024-08-26 19:04 | XMS_ITS | Encounter Summary ---
Author Organization [facility] Address [address] [place] [address] Care Team Providers Care Special Procedures Nurse Name Role Phone Yolande Nicholas DO Primary Care Pro vider Unavailable Anuj Priest DO Primary Care Provider [facility], Pcp Primary Care Provider Unavailabl e Reason for Visit * Reason Onset Date Comments VNA Call 02/25/2020 Encounter Details Date Type Department Care Team Description 02/25/2020 Telephone Adult Medicine [address] [address] Yolande Nicholas DO VNA Call Social History [...] on filedocumented in this encounter Care Teams Special Procedures Nurse Relationship Specialty Start Date End Date Yolande Nicholas DO PCP - General Internal Medicine 12/03/18 10/08/20 Anuj Priest DO PCP - General Internal Medicine 10/09/[address] [place] [address], Pcp PCP - General Internal Medicine 06/17/21 documented as of this encounter
--- OUTSIDE RECORDS SUMMARY | 2024-08-26 19:04 | XMS_ITS | Encounter Summary ---
Author Organization [facility] [employer] [facility] Address [address] [place] [address] Care Team Providers Care Tankage Grinder Operator Name Role Phone Yolande Nicholas DO Primary Care Pro vider Unavailable Anuj Priest DO Primary Care Provider [facility], Pcp Primary Care Provider Unavailabl e Reason for Visit * Reason Onset Date Comments Pipelayer Feedback 02/18/[address] Encounter Details Date Type Department Care Team Description 02/18/2019 Telephone Adult [address] [address] Yolande Nicholas DO Pipelayer Feedback (Low Dose CT) Social History Tobacco [...] on filedocumented in this encounter Care Teams Tankage Grinder Operator Relationship Specialty Start Date End Date Yolande Nicholas DO PCP - General Internal Medicine 12/03/18 10/08/20 Anuj Priest DO PCP - General Internal Medicine 10/09/20 2 [facility], Pcp PCP - General Internal Medicine 06/17/21 documented as of this encounter
--- OUTSIDE RECORDS SUMMARY | 2024-08-26 19:04 | XMS_ITS | Encounter Summary ---
Author Organization [facility] Address [address] [place] [address] Care Team Providers Care Chief Meter Reader Name Role Phone Ghassan Burciaga MD Primary Care Provider Unavail able Pierre Arevalo MD Primary Care Provider Judy vailable Gerson Dawson MD Primary Care Provider Unavail able [facility], Pcp Primary Care Provider Unavailabl e Coleman Mccarthy MD Primary Care Provider Unavaila Ayo Demarco MD Primary Care Provider [phone] Annalee Jones MD Primary Care Provider Un available Pascual Nicholasabela DO Primary Care Pro vider Unavailable Anuj Priest DO Primary Care Provider Judy vailable [facility], Pcp Primary Care Provider Unavailabl e Encounter Details Date Type Department Care Team Description 12/18/2009 Release of Information Medical Records [address] [place] [id number] Abstract, Provider Social History Tobacco Use Types [...] filedocumented in this encounter Care Teams Chief Meter Reader Relationship Specialty Start Date End Date Ghassan Burciaga MD PCP - General 07/24/00 05/06/13 Pierre Arevalo MD PCP - General Internal Medicine 05/07/13 4 Gerson Dawson MD PCP - General Internal Medicine 01/30/14 03/20/14 [facility], Pcp PCP - General Internal Medicine 03/21/14 05/06/14 Coleman Mccarthy MD PCP - General Internal Medicine 05/07/14 07/18/16 Ayo Carpio MD [address] [place] [address] PCP - General Internal Medicine 07/19/16 01/05/17 Annalee Jones MD [address] [place] [address] PCP - General Internal Medicine 01/06/17 12/02/18 Yolande Nicholas, [address] [place] [address] PCP - General Internal Medicine 12/03/18 10/08/20 Anuj Priest DO [address] [place] [address] PCP - General Internal Medicine 10/09/20 06/16/21 [facility], Pcp PCP - General Internal Medicine 06/17/21 documented as of this encounter
--- OUTSIDE RECORDS SUMMARY | 2024-08-26 19:04 | XMS_ITS | Encounter Summary ---
Author Organization [employer] Address [address] [facility] 7t [place] [address] Care Team Providers Care Brass Reclaimer Name Role Phone Sesar Pereyra MD Primary Care Provider [phone] Encounter Details Date Type Department Care Team ([facility] Contact Info) Description 10/13/2022 Orders Only [facility] [address] [place] [address] Sesar Pereyra MD [address] [place] [address] Social History Tobacco Use Types Packs/Day Years [...] [facility] [address] [place] [address] Sesar Pereyra MD [address] [place] [address] documented as of this encounter Visit Diagnoses Not on filedocumented in this encounter Care Teams Brass Reclaimer Relationship Specialty Start Date End Date Sesar Pereyra MD [address] [place] [address] PCP - General Internal Medicine 03/01/21 [facility] 03/22/24 documented as of this encounter
--- OUTSIDE RECORDS SUMMARY | 2024-08-26 19:04 | XMS_ITS | Encounter Summary ---
Author Organization [employer] Address [address] [facility] 7t [place] [address] Care Team Providers Care Land Management Supervisor Name Role Phone Sesar Pereyra MD Primary Care Provider [phone] Reason for Visit * Reason Onset Date Comments Med Refill 04/18/2024 Encounter Details Date Type Department Care Team ([facility] st Contact Info) Description 04/18/2024 Telephone [facility] [address] [place] [address] Sesar Pereyra MD [address] [place] [address] Med Refill Social History Tobacco Use Types [...] needing refill : To be sent to: [facility] [address] [place] documented in this encounter Plan of Treatment Upcoming Encounters Date Type Department Care Team (Late st Contact Info) Description 09/11/2024 10:30 AM EDT Office Visit [facility] [address] [place] [address] Sesar Pereyra MD [address] [place] [address] documented as of this encounter Visit Diagnoses Not on filedocumented in this encounter Additional Health Concerns Assessment Noted Time PHQ-9 Depression Total Score: 16 024 10:59 AM EDT documented as of this encounter Care Teams Land Management Supervisor Relationship Specialty Start Date End Date Sesar Pereyra MD [address] [place] [address] PCP - General Internal Medicine 03/01/21 [facility] 03/22/24 documented as of this encounter
--- OUTSIDE RECORDS SUMMARY | 2024-08-26 19:04 | XMS_ITS | Encounter Summary ---
Author Organization [facility] Address [address] [place] [address] Care Team Providers Care Braider Tender Name Role Phone Yolande Nicholas DO Primary Care Pro vider Unavailable Anuj Priest DO Primary Care Provider [facility], Pcp Primary Care Provider Unavailabl e Reason for Visit * Reason Onset Date Comments Faxed Order 03/08/2020 Encounter Details Date Type Department Care Team Description 03/08/2020 Telephone Adult Medicine [address] [address] Yolande Nicholas DO Faxed Order Social History [...] review, sign, date, and fax back to [phone] * Telephone Encounter - Gerri Parra - 03/08/2020 2:16 PM EST [facility] IS FAXING ORDERS TO BE SIGN AND FAX BACK TO [phone]. documented in this encounter Plan of Treatment Not on file documented as of this encounter Visit Diagnoses Not on filedocumented in this encounter Care Teams Braider Tender Relationship Specialty Start Date End Date Yolande Nicholas DO PCP - General Internal Medicine 12/03/18 10/08/20 Anuj Priest DO PCP - General Internal Medicine 10/09/[address] [place] [address], Pcp PCP - General Internal Medicine 06/17/21 documented as of this encounter
[2024-08-26 20:00] VITALS: BP 172/63; PULSE 84; RESP 19; TEMP 36.6; O2SAT 95
[2024-08-26 20:23] VITALS: O2SAT 86
--- NOTE | 2024-08-26 20:23 | PC.NURSE ---
Patient taken for walk the length of the unit, O2 sat consistently 91% at best, dipping to 89 multiple times. Upon return to bed, patient desat to 86% on RA w/ perfect pleth. Patient visibly SOB/WOB but denied feeling so. Patient's status communicated w/ COURT [place]. Brother Dao's number [phone].
--- NOTE | 2024-08-26 20:32 | P.HPHOSP_ITS ---
History of Present Illness Date of Service: 08/26/24 <[facility] - Last Filed: 08/26/24 21:29> Attending physician on admission: Christina Li <[facility] - Last Filed: 08/26/24 21:29> Chief Complaint: Fever, chills <[facility] - Last Filed: 08/26/24 21:29> Patient is a 79-year-old male with past medical history of hypertension, atrial fibrillation on Eliquis, depression/anxiety, obesity, bilateral shoulder repairs, renal carcinoma now cleared and in remission, HFrEF, COPD, cellulitis, neuropathy, chronic kidney disease stage 3, insomnia, chronic pain related to left shoulder, BPH, ascending aortic aneurysm currently 4.1, and diverticulitis reports 2 days of worsening fever and chills to the point that patient was shivering last night prior to trying to sleep. Patient was recently discharged from the hospital August 23 for dyspnea. Patient was discharged home on doxycycline. Patient currently lives alone but notified his brother and his brother brought him into the emergency department today. Patient was intermittently hypoxic, requiring oxygen and is currently on room air pulse ox 94%. Pt was noted to drop his POX with walking to 84%. There is evidence of left lower lobe pneumonia via chest x-ray. Patient has a nonproductive cough. Currently afebrile but temp 101 on arrival. Lactic acid was 2.4 and is now 1.2. Patient has a leukocytosis of 12.2, no bandemia. Patient currently denies any chest pain, shortness of breath at rest, abdominal pain, , nausea, vomiting, chills or lower calf pain. Viral studies were all negative. Patient has not traveled recently or been exposed to anyone with respiratory illness. Patient is started on Zosyn in the emergency department and we are adding vancomycin. EKG notes a prolonged QTC of 510. Patient is normally on Seroquel and sertraline. We will hold these medications and repeat EKG in the a.m.. Magnesium 1.9. Patient does have chronic pain related to left shoulder repair from a fall approximately 2 months prior. Patient was doing physical therapy but this made the pain worse so patient has stopped. Patient is using oxycodone as an outpatient to manage his pain. Patient has limited range of motion in the left upper extremity. Wiill order x-ray of the left shoulder. <[facility] - Last Filed: 08/26/24 21:29> Review of Systems 2 Review of Systems: Patient denies chest pain, shortness of breath at rest, abdominal pain, nausea, vomiting, constipation, diarrhea, lower calf pain, headaches, visual changes or any recent falls. Patient reports chronic increasing pain in the left shoulder status post surgery 2 months prior status post fall. Patient relies on oxycodone and has stopped physical therapy because this is making the pain worse. <[facility] - Last Filed: 08/26/24 21:29> Yes all other systems are reviewed and are negative <[facility] - Last Filed: 08/26/24 21:29> [facility] Medical History: Medical History Paroxysmal atrial flutter Preoperative cardiovascular examination Coronary artery disease Hypersomnia Snoring Neuropathy Atherosclerotic cardiovascular disease History of alcohol abuse History of COVID-19 On beta jose at home COPD (chronic obstructive pulmonary disease) On anticoagulant therapy History of atrial fibrillation PVD (peripheral vascular disease) Renal cell carcinoma Hypertension Depression Anxiety Diverticulitis <[facility] - Last Filed: 08/26/24 21:29> Cognitive capacity: Alert and orientated x3, independent with ADLs and IADLs <[facility] - Last Filed: 08/26/24 21:29> Functional capacity: independent ambulation <[facility] - Last Filed: 08/26/24 21:29> Surgical History: Surgical History History of intestinal surgery History of kidney surgery H/O cardiac catheterization History of colectomy S/P femoral-femoral bypass surgery <[facility] - Last Filed: 08/26/24 21:29> Social History: Social History Household Members: Significant Other Housing: House Are you a primary critical care nurse to a significant other at home: No Do you presently have visiting nurse or other home services: No Alcohol intake: never Patient Tobacco Use Status: Former Tobacco user Tobacco use type: Cigarette Smoked in Last 30 Days: No Second Hand Smoke Exposure: No Use of substances other than those prescribed or required for medical reasons: No Substance Use Type: Marijuana Advance Directives: No Advance Directives Information Provided: Yes Advance Directives Date on File: 06/09/21 Do you have a plan to hurt others: No Plan Nutrition Risks: No Nutritional Risk service: No Current occupational status: retired Current occupation: right hand dominant <[facility]al[facility]loria García [facility] - Last Filed: 08/26/24 21:29> Ebola Risk: Travel/Contact With Anyone From Affected Area/s: No [facility] - Last Filed: 08/26/24 21:29> Has Patient Experienced Ebola Symptoms: No <[facility] - Last Filed: 08/26/24 21:29> Meds Allergies/Adverse reactions: Allergies Allergy/AdvReac Type Severity Reaction Status Date / Time No Known Allergies Allergy Verified 08/26/24 12:23 [No Known Allergies*] <[facility] - Last Filed: 08/26/24 21:29> Home medications: Home Medications ?Medication ?Instructions ?Recorded ?Confirmed ?Last Taken ?Type docusate sodium 100 mg capsule 100 mg PO DAILY 08/17/21 08/21/24 07/11/24 History apixaban 5 mg tablet (Eliquis) 5 mg PO BID 01/27/22 08/21/24 07/11/24 History atorvastatin 80 mg tablet 80 mg PO DAILY 01/27/22 08/21/24 07/11/24 History sertraline 50 mg tablet 50 mg PO DAILY 07/06/22 08/21/24 07/11/24 History quetiapine 25 mg tablet 25 mg PO BID 12/28/22 08/21/24 07/11/24 History tamsulosin 0.4 mg capsule 0.4 mg PO DAILY 03/07/23 08/21/24 07/11/24 History cilostazol 50 mg tablet 50 mg PO BID 03/27/23 08/21/24 07/11/24 History clonazepam 0.5 mg tablet 0.5 mg PO BID Anxiety 11/15/23 08/21/24 07/11/24 History dextroamphetamine-amphetamine 7.5 1 tab PO DAILY 03/18/24 08/21/24 07/11/24 History mg tablet melatonin 3 mg capsule 3 mg PO BEDTIME PRN Sleep 04/12/24 08/21/24 Unknown History aspirin 81 mg tablet,delayed 81 mg PO DAILY 07/11/24 08/21/24 07/11/24 History release metoprolol tartrate 25 mg tablet 12.5 mg PO BID 07/11/24 08/21/24 07/11/24 History gabapentin 100 mg capsule 300 mg PO BEDTIME Pain (Scale 08/21/24 08/21/24 Unknown History Score 1-3) <[facility]ale García [facility] - Last Filed: 08/26/24 21:29> Physical Exam 2 Vital Signs and Narrative: Vital Signs: Last Vital Signs Temp 97.8 F 08/26/24 20:00 Pulse 84 08/26/24 20:00 Resp 19 08/26/24 20:00 BP 172/63 H 08/26/24 20:00 Pulse Ox 86 L 08/26/24 20:23 O2 Del Method Room Air 08/26/24 20:00 BMI result Body Mass Index 31.5 <[facility] - Last Filed: 08/26/24 21:29> Alert and orientated X3, able to give good history. Neuro: CN II-X11 intact, no deficits, visual acuity intact EYES: PERRLA, EOM intact ENT: hearing intact, no issues with swallowing, uvula midline, lips moist, nares patent no epistaxis Cardiac: S1 S2 RRR, no murmur, no JVD, mild edema in Lower ext Pulmonary: lungs diminished L>R no wheezing or rhonchi noted Abdominal: BS active in all 4 quadrants, no guarding, tenderness, rebounding MSK: strength 5/5 upper R, 3/5 upper Left , pt unable to extend left arm or adduct left arm outwards, and 5/5 B lower extremities : no CVA tenderness no bladder distension Extremities: mild non pitting edema in lower extremities, PT and DP pulses palpable +2 Psych: mood stable, judgement and insight good Skin: no open wounds, chronic discoloration BLEs indicating PVD <[facility] - Last Filed: 08/26/24 21:29> Results Labs CBC and Chem 7: 08/26/24 13:18 08/26/24 13:17 <[facility] - Last Filed: 08/26/24 21:29> Labs: Laboratory Results - last 24 hr 08/26/24 08/26/24 08/26/24 13:17 13:18 17:10 MCV 95.6 MCH 31.1 MCHC 32.5 RDW 15.9 Plt Count 255 MPV 10.2 Immature Gran % (Auto) 0.4 Neut % (Auto) 88.1 H Lymph % (Auto) 3.6 L [place] % (Auto) 7.6 Eos % (Auto) 0.0 Baso % (Auto) 0.3 Lymph # (Auto) 0.4 L [place] # (Auto) 0.9 Eos # (Auto) 0.0 Baso # (Auto) 0.0 Abs Immat Gran (auto) 0.05 H Absolute Neuts (auto) 10.7 H Absolute Nucleated RBC 0.000 Nucleated RBC % (auto) 0.0 Hold Purple Top Anion Gap 15 Estim Creat Clear Calc 68.8 Estimated GFR > 60 Random Glucose 97 Lactic Acid 1.2 Calcium 9.2 Magnesium 1.9 Total Bilirubin 0.7 AST 27 ALT 11 Alkaline Phosphatase 111 B-Natriuretic Peptide Total Protein 7.0 Albumin 4.0 Lipase 9 Influenza Type A (PCR) NEGATIVE Influenza Type B (PCR) NEGATIVE RSV RNA Qual (PCR) NEGATIVE SARS-CoV-2 RNA (RT-PCR) NEGATIVE 08/26/24 08/26/24 17:16 17:28 MCV MCH MCHC RDW Plt Count MPV Immature Gran % (Auto) Neut % (Auto) Lymph % (Auto) [place] % (Auto) Eos % (Auto) Baso % (Auto) Lymph # (Auto) [place] # (Auto) Eos # (Auto) Baso # (Auto) Abs Immat Gran (auto) Absolute Neuts (auto) Absolute Nucleated RBC Nucleated RBC % (auto) Hold Purple Top SEE NOTE Anion Gap Estim Creat Clear Calc Estimated GFR Random Glucose Lactic Acid Calcium Magnesium Total Bilirubin AST ALT Alkaline Phosphatase B-Natriuretic Peptide 379 H Total Protein Albumin Lipase Influenza Type A (PCR) Influenza Type B (PCR) RSV RNA Qual (PCR) SARS-CoV-2 RNA (RT-PCR) <[facility] - Last Filed: 08/26/24 21:29> ECG Attestation: I personally reviewed and interpreted this ECG as follows: (Normal sinus rhythm with PACs, QTC 510) <[facility] - Last Filed: 08/26/24 21:29> Prior ECG tracings: available for review <[facility] - Last Filed: 08/26/24 21:29> Imaging Radiologist's Impressions: Impressions Chest X-Ray 08/26/24 12:35 IMPRESSION: Left lower lobe pneumonia. No definite effusions. Suggestion of peribronchial thickening in both lower lobes left greater than right. Likely underlying COPD. Electronically signed by: Jaquan Guillen MD 08/26/2024 12:48 PM EDT RP <[facility] - Last Filed: 08/26/24 21:29> Assessment and Plan (1) Acute hypoxic respiratory failure: Status: Acute <[facility] - Last Filed: 08/26/24 21:29> Patient is a 79-year-old male with past medical history of hypertension, atrial fibrillation on Eliquis, depression/anxiety, obesity, bilateral shoulder repairs, renal carcinoma now cleared and in remission, HFrEF, COPD, cellulitis, neuropathy, chronic kidney disease stage 3, insomnia, chronic pain related to left shoulder, BPH, ascending aortic aneurysm currently 4.1, and diverticulitis is being admitted for acute hypoxic respiratory failure and left lower lobe pneumonia, community-acquired. Acute hypoxic respiratory failure/left lower lobe pneumonia - CAP/ Sepsis noting fever on arrival with lactic acidosis/ leukocytosis -patient currently on room air, pulse ox 94%, patient's pulse ox will drop with walking to 84%, patient does not use home O2. Remote history of smoking with cessation 40 years prior. -continue Zosyn, vancomycin -BC pending, UA ordered -telemetry and continuous pulse ox with CO2 monitoring -incentive spirometry, duo nebs as needed, antitussives HFrEF/ elevated BNP -patient will likely be able to continue his Lasix in the a.m. -daily weight low-sodium diet, I's and O's -last echo 08/05/2024 no indication for new echo Atrial fibrillation on Eliquis -currently in sinus rhythm with PACs -continue metoprolol, Eliquis -telemetry Prolonged QTC -telemetry, repeat ECG in AM -hold quetapine and sertraline for now CKD Stage 3 -renal fx stable, avoid hypotension, nephrotoxic medications Left shoulder pain -status post surgery 2 months prior for fracture status post fall -patient has stopped Pt as became too painful -patient is unable to lift left arm or extend arm away from the body -two-view x-ray ordered, CRP and sed rate also ordered -consult orthopedics if needed, otherwise patient will need to follow up as an outpatient MED REC pending DVT prophylaixs: eliquis PPI: not indicated <MELITON [facility]is- - Last Filed: 08/26/24 21:29> Patient is a 79-year-old male with past medical history of hypertension, atrial fibrillation on Eliquis, depression/anxiety, obesity, bilateral shoulder repairs, renal carcinoma now cleared and in remission, HFrEF, COPD, cellulitis, neuropathy, chronic kidney disease stage 3, insomnia, chronic pain related to left shoulder, BPH, ascending aortic aneurysm currently 4.1, and diverticulitis is being admitted for acute hypoxic respiratory failure and left lower lobe pneumonia, community-acquired. Acute hypoxic respiratory failure/left lower lobe pneumonia - CAP/ Sepsis noting fever on arrival with lactic acidosis/ leukocytosis -patient currently on room air, pulse ox 94%, patient's pulse ox will drop with walking to 84%, patient does not use home O2. Remote history of smoking with cessation 40 years prior. -continue Zosyn, vancomycin as recent admission to hospital - pending, UA ordered -telemetry and continuous pulse ox with CO2 monitoring -incentive spirometry, duo nebs as needed, antitussives HFrEF/ elevated BNP -patient will likely be able to continue his Lasix in the a.m. -daily weight low-sodium diet, I's and O's -last echo 08/05/2024 no indication for new echo Atrial fibrillation on Eliquis -currently in sinus rhythm with PACs -continue metoprolol, Eliquis -telemetry Prolonged QTC -telemetry, repeat ECG in AM -hold quetapine and sertraline for now CKD Stage 3 -renal fx stable, avoid hypotension, nephrotoxic medications Left shoulder pain -status post surgery 2 months prior for fracture status post fall -patient has stopped Pt as became too painful -patient is unable to lift left arm or extend arm away from the body -two-view x-ray ordered, CRP and sed rate also ordered -consult orthopedics if needed, otherwise patient will need to follow up as an outpatient MED REC pending DVT prophylaixs: eliquis PPI: not indicated <Christina Li MD - Last Filed: 08/26/24 21:33> Quality Stroke Does the patient have a stroke diagnosis?: No <[facility]ale Raquel, [facility]- - Last Filed: 08/26/24 21:29> Reason for No Anti-thrombotic by Day Two: N/A - Med Ordered <[facility], [facility]- - Last Filed: 08/26/24 21:29> VTE Prior VTE?: No <[facility], [facility]- - Last Filed: 08/26/24 21:29> VTE Risk Level:: Medical - moderate - high <[facility], [facility]- - Last Filed: 08/26/24 21:29> VTE Device Contraindication: N/A - Device Ordered <[facility], [facility]- - Last Filed: 08/26/24 21:29> VTE Drug Contraindication: N/A - Med Ordered <[facility], [facility]- - Last Filed: 08/26/24 21:29>
[2024-08-26] MEDS: Sennosides 8.6 MG TABLET 17.2 MG PO (21:22)
[2024-08-26 21:32] LABS: C Reactive Protein 9.12 mg/dL (< or = 0.50)
[2024-08-26] MEDS: vancomycin/NS 2,000 MG/500 ML PLAST..BAG 250 MG IV (21:46)
--- NOTE | 2024-08-26 21:54 | PHA.MEDREC ---
Addendum entered by Nabila Hamilton RPh 08/26/24 22:13: reviewed by [facility]. Original Note: Pharmacy Consult ? Medication Reconciliation Pharmacy has completed the medication reconciliation. Spoke with patient and he was a poor historian when I asked about his medications but stated he was just discharged from us 08/23 and nothing has changed since; I utilized the discharge packet from 08/23 to complete the med rec. Patient confirmed his Eliquis twice a day but did not remember the dose at this time.
--- NOTE | 2024-08-26 22:25 | PHA.PROG ---
Admission Date/Time: August 26, 2024 20:30 Indication: RESP Weight in k.3 kg Serum Creatinine - Last 168 Hours 08/26/24 13:17 Creatinine 1.16 Estimated CrCl and GFR - Last 168 Hours 08/26/24 13:17 Estim Creat Clear Calc 68.8 Estimated GFR > 60 Vancomycin Loading Dose: 1999 Current Vancomycin Dosing Regimen: 1500 Q24H Vancomycin Monitoring using AUC goal of 400 - 600 range with trough as surrogate marker: 452 Date and Time for next Vancomycin Level to be drawn: 08/28 @ 1999 Pharmacist Comments on Vancomycin Plan: Vancomycin dosing will take advantage of [employer] as a clinical decision support tool that uses Bayesian modeling to calculate individual patient's pharmacokinetic parameters and forecast the patient's drug concentration time course with the target goal AUC 24 range of 400 - 600 mg/L/hr.
--- NOTE | 2024-08-26 22:53 | PC.NURSE ---
Pt continues to c/o increased pain, states he usually doubles up on oxy at night for pain relief. Admitting provider Chantale García made aware, awaiting additional orders.
[2024-08-26] MEDS: dexAMETHasone 6 MG TABLET PO (23:05)
[2024-08-26] MEDS: Ketorolac Tromethamine 15 MG/ML VIAL IVPUSH (23:05)
--- NOTE | 2024-08-26 23:31 | PC.NURSE ---
Addendum entered by Elissa Rebolledo RN 08/27/24 04:47: Pt noted to wet the bed when trying to use the urinal. changed pt and bed with EDT. when attempting to restart pts IV unsuccessful, met resistance when trying to flush IV. Paused IVF at this time. attempting another line. Addendum entered by Elissa Rebolledo RN 08/27/24 01:35: pt noted to desat to 88% on room air, pt placed on 1L NC and O2 sat 93%. Original Note: assumed care for pt at this time. pt resting stretcher quietly. Pt alert to self place and time. pt denying any pain at this point. Vancomycin noted to be running through IV at this time. Pts needs met. Pts call alex within reach. plan of care ongoing
[2024-08-27] VITALS (10 sets, daily range): BP systolic 112–178; BP diastolic 54–81; PULSE 57–78; RESP 13–21; TEMP 36.7–37.6; O2SAT 88–97; BMI 31.6
[2024-08-27] MEDS: Piperacillin Sodium/Tazobactam 3.375 GM in 0.9 % Sodium Chloride 50 ML IV ×5 (00:26→23:12)
[2024-08-27 05:00] LABS: Basophils Percent Auto 0.3 % (0-2); Hematocrit 39.5 % (42.0-52.0); Hemoglobin 12.9 g/dl (14.0-18.0); Imm Gran Abs Auto 0.02 X10*3/uL (0.00-0.03); Imm Gran Pct Auto 0.3 % (0.0-0.4); Lymphocytes Absolute Auto 0.3 X10*3/uL (1.2-4.9); MANUAL DIFF FLAG SCAN; Mean Corpuscular HGB Conc 32.7 g/dl (31.0-36.0); Mean Corpuscular Hemoglobin 30.9 pg (27.0-33.0); Mean Corpuscular Volume 94.5 fL (80.0-98.0); Mean Platelet Volume 9.7 fL (9.4-12.4); Monocytes Absolute Auto 0.2 X10*3/uL (0.1-1.2); Monocytes Percent Auto 2.6 % (2-11); Neutrophils Absolute Auto 5.7 x10*3/uL (2.0-8.3); Neutrophils Percent Auto 91.8 % (45-73); Platelet Count 234 X10*3/uL (160-400); Red Blood Count 4.18 X10*6/uL (4.60-5.80); Red Cell Distribution Width 16.2 % (11.0-16.0); SCAN SMEAR FLAG 1; White Blood Count 6.2 X10*3/uL (4.8-10.8)
[2024-08-27] MEDS: oxyCODONE HCl Immed Release 5 MG TABLET PO ×3 (05:00→20:59)
[2024-08-27 05:14] LABS: Anion Gap 16 (12-20); Blood Urea Nitrogen 20 mg/dL (9-16); Calcium 9.3 mg/dL (8.4-10.2); Carbon Dioxide 22 mmol/L (22-29); Chloride 108 mmol/L (96-108); Creatinine Clr Calc Pharmacy 62.3; Estimated Glomerular Filt Rate 54; Glucose Random 124 mg/dL (60-115); Potassium 4.5 mmol/L (3.3-5.1); Sodium 141 mmol/L (135-145)
[2024-08-27 05:15] LABS: Creatinine Clr Calc Pharmacy 61.9; Estimated Glomerular Filt Rate 54
[2024-08-27 05:21] LABS: SLIDE REVIEW VERIFIED
[2024-08-27 05:33] LABS: Erythrocyte Sedimentation Rate 28 MM/HR (0-15)
--- NOTE | 2024-08-27 07:00 | ECG_ITS ---
Test Reason : qtc check Blood Pressure : */* mmHG Vent. Rate : 67 BPM Atrial Rate : 67 BPM P-R Int : 206 ms QRS Dur : 84 ms QT Int : 484 ms P-R-T Axes : 95 6 25 degrees QTcB Int : 511 ms Normal sinus rhythm with sinus arrhythmia Septal infarct , age undetermined Prolonged QT Abnormal ECG When compared with ECG of 26-Aug-2024 17:26, Premature atrial complexes are no longer Present Referred By: Chantale García Electronically Signed By: Brad Mims
[2024-08-27] MEDS: 0.9 % Sodium Chloride Flush 3 ML SYRINGE IVFLUSH ×2 (08:26→16:24)
--- NOTE | 2024-08-27 08:28 | PC.NURSE ---
This RN assumed care of patient @ 0700. In to reposition patient, flush right upper arm IV, dressing intact, line patent. Patient on RA 95%, denies SOB/wob. Patient currently with Mariana from PT
--- NOTE | 2024-08-27 09:43 | MHC.CM.PN ---
Addendum entered by Yoanna Osuna 08/27/24 12:40: IMM was addressed with Patient at bedside, in the ED; original was given to him and a copy will be placed on the chart. Original Note: PT is recommending home with services and Patient is active with [facility]; CM has initiated and will follow for dc planning.Patient lives with his Significant Other/Ame, who will transport to home at time of dc. PCP is Dr. Sesar Pereyra and HCP is on file.
--- NOTE | 2024-08-27 15:11 | HO.PM.IMPN ---
Subjective Subjective Date of Service: 08/27/24 Interval History: No acute issues overnight. States breathing improved Review of Systems Denies chest pain Denies shortness of breath Denies nausea vomiting diarrhea Denies fever chills Physical Exam Vital Signs: Vital Signs: Last Vital Signs Temp 98.8 F 08/27/24 12:54 Pulse 70 08/27/24 12:54 Resp 17 08/27/24 12:54 BP 112/68 08/27/24 12:54 Pulse Ox 97 08/27/24 12:54 O2 Del Method Room Air 08/27/24 12:54 O2 Flow Rate 1 08/27/24 04:00 BMI result Body Mass Index 31.5 Const: Other: Awake alert oriented x3 in no acute distress Resp: Other: Diminished throughout with crackles bilateral lower johnson Cardio: Other: No S4; positive S1-S2; no S3 murmurs rubs or gallops GI: Other: Soft nontender nondistended normoactive bowel sounds Extrem: Other: No edema bilaterally Objective Data Active Medications Acetaminophen (Acetaminophen 325 Mg Tablet) 650 mg PO Q6H PRN PRN Reason: Pain, Mild 1-3,fever,headache Albuterol/Ipratropium (Albuterol/Iprat 2.5/0.5mg 3 Ml Ampul.Neb) 3 ml INHALE Q4H PRN PRN Reason: Shortness of Breath/Wheezing Benzonatate (Benzonatate 100 Mg Capsule) 100 mg PO TID PRN PRN Reason: Cough Calcium Carbonate (Calcium Carbonate 750 Mg Tab.Chew) 750 mg PO Q4H PRN PRN Reason: Heartburn Guaifenesin (Guaifenesin 200 Mg/10 Ml 10 Ml Liquid) 10 ml PO Q4H PRN PRN Reason: Cough Piperacillin Sod/Tazobactam (Sod 3.375 gm/ Sodium Chloride) 50 mls @ 100 mls/hr IV Q6H [facility] Last Admin: 08/27/24 11:53 Dose: 100 mls/hr Documented By: DEANA Vancomycin HCl 1,500 mg/ (Sodium Chloride) 500 mls @ 333.333 mls/hr IV Q24H [facility] Magnesium Hydroxide (Milk Of Magnesia 30 Ml Oral.Susp) 30 ml PO DAILY PRN PRN Reason: Constipation Melatonin (Melatonin 3 Mg Tablet) 6 mg PO BEDTIME PRN PRN Reason: Insomnia Ondansetron HCl (Ondansetron Hcl 4 Mg/2 Ml Vial) 4 mg IVPUSH Q8H PRN PRN Reason: Nausea and Vomiting Oxycodone HCl (Oxycodone Hcl Immed Release 5 Mg Tablet) 5 mg PO Q6H PRN PRN Reason: Pain, Moderate(Pain Scale 4-6) Last Admin: 08/27/24 11:58 Dose: 5 mg Documented By: DEANA Pharmacy Consult (Consult Rx Vancomycin Dosing) 1 each MISCELLANE DAILY PRN PRN Reason: Consult order Polyethylene Glycol (Polyethylene Glycol 3350 17 Gm Powd.Pack) 17 gm PO DAILY PRN PRN Reason: Constipation Senna (Sennosides 8.6 Mg Tablet) 17.2 mg PO BEDTIME [facility] Last Admin: 08/26/24 21:22 Dose: 17.2 mg Documented By: DITOTULIO Sodium Chloride (0.9 % Sodium Chloride Flush 3 Ml Syringe) 3 ml IVFLUSH QSHIFT [facility] Last Admin: 08/27/24 08:26 Dose: 3 ml Documented By: WANDY Labs 08/27/24 04:41 08/27/24 04:41 Labs: Laboratory Results - last 24 hr 08/26/24 08/26/24 08/26/24 13:17 17:10 17:16 MCV MCH MCHC RDW Plt Count MPV Immature Gran % (Auto) Neut % (Auto) Lymph % (Auto) [place] % (Auto) Eos % (Auto) Baso % (Auto) Lymph # (Auto) [place] # (Auto) Eos # (Auto) Baso # (Auto) Abs Immat Gran (auto) Absolute Neuts (auto) Absolute Nucleated RBC Nucleated RBC % (auto) Smear Tech's Comments ESR Hold Purple Top Anion Gap Estim Creat Clear Calc Estimated GFR Random Glucose Lactic Acid 1.2 Calcium Magnesium 1.9 C-Reactive Protein 9.12 H B-Natriuretic Peptide 379 H 08/26/24 08/27/24 08/27/24 17:28 04:41 04:41 MCV 94.5 MCH 30.9 MCHC 32.7 RDW 16.2 H Plt Count 234 MPV 9.7 Immature Gran % (Auto) 0.3 Neut % (Auto) 91.8 H Lymph % (Auto) 5.0 L [place] % (Auto) 2.6 Eos % (Auto) 0.0 Baso % (Auto) 0.3 Lymph # (Auto) 0.3 L [place] # (Auto) 0.2 Eos # (Auto) 0.0 Baso # (Auto) 0.0 Abs Immat Gran (auto) 0.02 Absolute Neuts (auto) 5.7 Absolute Nucleated RBC 0.000 Nucleated RBC % (auto) 0.0 Smear Tech's Comments VERIFIED ESR 28 H Hold Purple Top SEE NOTE Anion Gap 16 Estim Creat Clear Calc 62.3 61.9 Estimated GFR 54 Random Glucose Lactic Acid Calcium Magnesium C-Reactive Protein B-Natriuretic Peptide 08/27/24 04:41 MCV MCH MCHC RDW Plt Count MPV Immature Gran % (Auto) Neut % (Auto) Lymph % (Auto) [place] % (Auto) Eos % (Auto) Baso % (Auto) Lymph # (Auto) [place] # (Auto) Eos # (Auto) Baso # (Auto) Abs Immat Gran (auto) Absolute Neuts (auto) Absolute Nucleated RBC Nucleated RBC % (auto) Smear Tech's Comments ESR Hold Purple Top Anion Gap Estim Creat Clear Calc Estimated GFR 54 Random Glucose 124 H Lactic Acid Calcium 9.3 Magnesium C-Reactive Protein B-Natriuretic Peptide Assessment and Plan (1) Acute hypoxic respiratory failure: Status: Acute (2) Pneumonia: Status: Acute Plan Patient is a 79-year-old male with past medical history of hypertension, atrial fibrillation on Eliquis, depression/anxiety, obesity, bilateral shoulder repairs, renal carcinoma now cleared and in remission, HFrEF, COPD, cellulitis, neuropathy, chronic kidney disease stage 3, insomnia, chronic pain related to left shoulder, BPH, ascending aortic aneurysm currently 4.1, and diverticulitis is being admitted for acute hypoxic respiratory failure and left lower lobe pneumonia, community-acquired. 1.Acute hypoxic respiratory failure/left lower lobe pneumonia -Zosyn/vancomycin(2) -incentive spirometry/ duo nebs prn 2.HFrEF -stable and well compensated -continue outpatient therapies 3. Paroxysmal Atrial fibrillation -acceptable rate control -adjust as indicated -Eliquis as ordered 4.CKD Stage 3 -stable follow renals/divalents Eliquis Full code Quality Stroke Does the patient have a stroke diagnosis?: No Reason for No Anti-thrombotic by Day Two: N/A - Med Ordered VTE Prior VTE?: No VTE Risk Level:: Medical - moderate - high VTE Device Contraindication: N/A - Device Ordered VTE Drug Contraindication: N/A - Med Ordered
--- NOTE | 2024-08-27 18:33 | PC.NURSE ---
pt to inpatient bedroom assignment via transport personnel
[2024-08-27] MEDS: Metoprolol Tartrate 12.5 MG HALFTAB PO (20:58)
[2024-08-27] MEDS: Sertraline HCL 50 MG TABLET PO (20:58)
[2024-08-27] MEDS: Sennosides 8.6 MG TABLET 17.2 MG PO (20:58)
[2024-08-27] MEDS: Melatonin 3 MG TABLET 6 MG PO (20:58)
[2024-08-27] MEDS: Apixaban 5 MG TABLET PO (20:58)
[2024-08-27] MEDS: QUEtiapine Fumarate 25 MG TABLET PO (20:58)
[2024-08-27] MEDS: Dronedarone HCl 400 MG TABLET PO (20:58)
[2024-08-27] MEDS: clonazePAM 0.5 MG TABLET PO (20:58)
[2024-08-27] MEDS: cilostazoL 50 MG TABLET PO (20:58)
[2024-08-27] MEDS: Gabapentin 300 MG CAPSULE PO (20:58)
[2024-08-27] MEDS: vancomycin HCL 1,500 MG in 0.9 % Sodium Chloride 500 ML 333.33 MG IV (21:30)
[2024-08-28] VITALS (8 sets, daily range): BP systolic 132–171; BP diastolic 63–77; PULSE 54–68; RESP 16–18; TEMP 36.6–37.9; O2SAT 92–96
[2024-08-28] MEDS: oxyCODONE HCl Immed Release 5 MG TABLET PO ×4 (03:53→20:13)
[2024-08-28] MEDS: Piperacillin Sodium/Tazobactam 3.375 GM in 0.9 % Sodium Chloride 50 ML IV ×4 (05:48→22:54)
[2024-08-28 07:41] LABS: MANUAL DIFF FLAG NO
[2024-08-28 07:49] LABS: Basophils Percent Auto 0.3 % (0-2); Eosinophils Absolute Auto 0.2 X10*3/uL (0.0-0.4); Eosinophils Percent Auto 2.9 % (0-4); Hematocrit 38.6 % (42.0-52.0); Hemoglobin 12.4 g/dl (14.0-18.0); Imm Gran Abs Auto 0.04 X10*3/uL (0.00-0.03); Imm Gran Pct Auto 0.6 % (0.0-0.4); Lymphocytes Absolute Auto 0.8 X10*3/uL (1.2-4.9); Lymphocytes Percent Auto 12.3 % (20-40); Mean Corpuscular HGB Conc 32.1 g/dl (31.0-36.0); Mean Corpuscular Hemoglobin 30.9 pg (27.0-33.0); Mean Corpuscular Volume 96.3 fL (80.0-98.0); Mean Platelet Volume 10.1 fL (9.4-12.4); Monocytes Absolute Auto 0.8 X10*3/uL (0.1-1.2); Monocytes Percent Auto 12.5 % (2-11); Neutrophils Absolute Auto 4.6 x10*3/uL (2.0-8.3); Neutrophils Percent Auto 71.4 % (45-73); Platelet Count 245 X10*3/uL (160-400); Red Blood Count 4.01 X10*6/uL (4.60-5.80); Red Cell Distribution Width 16.4 % (11.0-16.0); White Blood Count 6.5 X10*3/uL (4.8-10.8)
[2024-08-28 08:15] LABS: Alanine Aminotransferase 17 U/L (0-40); Albumin Level 3.4 g/dL (3.5-5.0); Alkaline Phosphatase 85 U/L (39-117); Anion Gap 13 (12-20); Aspartate Amino Transferase 33 U/L (5-37); Bilirubin Total 0.4 mg/dL (0.0-1.0); Blood Urea Nitrogen 22 mg/dL (9-16); Calcium 8.9 mg/dL (8.4-10.2); Carbon Dioxide 22 mmol/L (22-29); Chloride 113 mmol/L (96-108); Creatinine Clr Calc Pharmacy 66.6; Estimated Glomerular Filt Rate 59; Glucose Fasting 85 mg/dL (60-99); Potassium 3.9 mmol/L (3.3-5.1); Sodium 144 mmol/L (135-145); Total Protein 5.8 g/dL (6.5-8.0)
[2024-08-28] MEDS: QUEtiapine Fumarate 25 MG TABLET PO ×2 (08:45→20:12)
[2024-08-28] MEDS: Tamsulosin HCL 0.4 MG CAPSULE PO (08:45)
[2024-08-28] MEDS: Atorvastatin Calcium 80 MG TABLET PO (08:45)
[2024-08-28] MEDS: Metoprolol Tartrate 12.5 MG HALFTAB PO ×2 (08:45→20:12)
[2024-08-28] MEDS: Dronedarone HCl 400 MG TABLET PO ×2 (08:45→20:12)
[2024-08-28] MEDS: Sertraline HCL 50 MG TABLET PO (08:45)
[2024-08-28] MEDS: cilostazoL 50 MG TABLET PO ×2 (08:46→20:13)
[2024-08-28] MEDS: Apixaban 5 MG TABLET PO ×2 (08:46→20:12)
[2024-08-28] MEDS: Aspirin Enteric Coated 81 MG TABLET.DR PO (08:46)
[2024-08-28] MEDS: Amphetamine Mixed Salts 10 MG TABLET 7.5 MG PO (08:51)
[2024-08-28] MEDS: 0.9 % Sodium Chloride Flush 3 ML SYRINGE IVFLUSH ×4 (08:52→23:34)
[2024-08-28] MEDS: clonazePAM 1 MG TABLET PO (10:58)
--- NOTE | 2024-08-28 12:14 | MHC.CM.PN ---
EMR reviewed and per MD rounds, pt is not medically cleared for discharge at this time.
--- NOTE | 2024-08-28 16:51 | HO.PM.IMPN ---
Subjective Subjective Date of Service: 08/28/24 Interval History: Breathing has improved since admission; no acute issues overnight Review of Systems Denies chest pain Denies shortness of breath Denies nausea vomiting diarrhea Denies fever chills Physical Exam Vital Signs: Vital Signs: Last Vital Signs Temp 98.9 F 08/28/24 15:38 Pulse 56 08/28/24 15:38 Resp 18 08/28/24 15:38 BP 166/70 H 08/28/24 15:38 Pulse Ox 94 08/28/24 15:38 O2 Del Method Room Air 08/28/24 15:38 O2 Flow Rate 1 08/27/24 04:00 BMI result Body Mass Index 31.6 Const: Other: Awake alert oriented x3 in no acute distress Resp: Other: Diminished throughout with crackles bilateral lower johnson Cardio: Other: No S4; positive S1-S2; no S3 murmurs rubs or gallops GI: Other: Soft nontender nondistended normoactive bowel sounds Extrem: Other: No edema bilaterally Objective Data Active Medications Acetaminophen (Acetaminophen 325 Mg Tablet) 650 mg PO Q6H PRN PRN Reason: Pain, Mild 1-3,fever,headache Albuterol/Ipratropium (Albuterol/Iprat 2.5/0.5mg 3 Ml Ampul.Neb) 3 ml INHALE Q4H PRN PRN Reason: Shortness of Breath/Wheezing Amphetamine/Dextroamphetamine (Amphetamine Mixed Salts 10 Mg Tablet) 7.5 mg PO DAILY [facility] Last Admin: 08/28/24 08:51 Dose: 7.5 mg Documented By: INGRIS Apixaban (Apixaban 5 Mg Tablet) 5 mg PO BID [facility] Last Admin: 08/28/24 08:46 Dose: 5 mg Documented By: INGRIS Aspirin (Aspirin Enteric Coated 81 Mg Tablet.) 81 mg PO DAILY [facility] Last Admin: 08/28/24 08:46 Dose: 81 mg Documented By: INGRIS Atorvastatin Calcium (Atorvastatin Calcium 80 Mg Tablet) 80 mg PO DAILY [facility] Last Admin: 08/28/24 08:45 Dose: 80 mg Documented By: INGRIS Benzonatate (Benzonatate 100 Mg Capsule) 100 mg PO TID PRN PRN Reason: Cough Calcium Carbonate (Calcium Carbonate 750 Mg Tab.Chew) 750 mg PO Q4H PRN PRN Reason: Heartburn Cilostazol (Cilostazol 50 Mg Tablet) 50 mg PO BID [facility] Last Admin: 08/28/24 08:46 Dose: 50 mg Documented By: INGRIS Clonazepam (Clonazepam 1 Mg Tablet) 1 mg PO DAILY [facility] Last Admin: 08/28/24 10:58 Dose: 1 mg Documented By: INGRIS Docusate Sodium (Docusate Sodium 100 Mg Capsule) 100 mg PO DAILY [facility] Last Admin: 08/28/24 08:59 Dose: Not Given Documented By: INGRIS Non-Admin Reason: pt reported diarrhea Dronedarone (Dronedarone Hcl 400 Mg Tablet) 400 mg PO BID [facility] Last Admin: 08/28/24 08:45 Dose: 400 mg Documented By: INGRIS Gabapentin (Gabapentin 300 Mg Capsule) 300 mg PO BEDTIME [facility] Last Admin: 08/27/24 20:58 Dose: 300 mg Documented By: ZEUS Guaifenesin (Guaifenesin 200 Mg/10 Ml 10 Ml Liquid) 10 ml PO Q4H PRN PRN Reason: Cough Piperacillin Sod/Tazobactam (Sod 3.375 gm/ Sodium Chloride) 50 mls @ 100 mls/hr IV Q6H [facility] Last Admin: 08/28/24 16:24 Dose: 100 mls/hr Documented By: INGRIS Vancomycin HCl 1,500 mg/ (Sodium Chloride) 500 mls @ 333.333 mls/hr IV Q24H [facility] Last Infusion: 08/27/24 23:17 Dose: Infused Documented By: ZEUS Magnesium Hydroxide (Milk Of Magnesia 30 Ml Oral.Susp) 30 ml PO DAILY PRN PRN Reason: Constipation Melatonin (Melatonin 3 Mg Tablet) 6 mg PO BEDTIME PRN PRN Reason: Insomnia Last Admin: 08/27/24 20:58 Dose: 6 mg Documented By: ZEUS Metoprolol Tartrate (Metoprolol Tartrate 12.5 Mg Halftab) 12.5 mg PO BID [facility]; Protocol Last Admin: 08/28/24 08:45 Dose: 12.5 mg Documented By: INGRIS Ondansetron HCl (Ondansetron Hcl 4 Mg/2 Ml Vial) 4 mg IVPUSH Q8H PRN PRN Reason: Nausea and Vomiting Oxycodone HCl (Oxycodone Hcl Immed Release 5 Mg Tablet) 5 mg PO Q6H PRN PRN Reason: Pain, Moderate(Pain Scale 4-6) Last Admin: 08/28/24 16:26 Dose: 5 mg Documented By: INGRIS Pharmacy Consult (Consult Rx Vancomycin Dosing) 1 each MISCELLANE DAILY PRN PRN Reason: Consult order Polyethylene Glycol (Polyethylene Glycol 3350 17 Gm Powd.Pack) 17 gm PO DAILY PRN PRN Reason: Constipation Polyethylene Glycol (Polyethylene Glycol 3350 17 Gm Powd.Pack) 17 gm PO BEDTIME [facility] Last Admin: 08/27/24 21:01 Dose: Not Given Documented By: ZEUS Non-Admin Reason: Patient Refused Quetiapine Fumarate (Quetiapine Fumarate 25 Mg Tablet) 25 mg PO BID [facility] Last Admin: 08/28/24 08:45 Dose: 25 mg Documented By: INGRIS Senna (Sennosides 8.6 Mg Tablet) 17.2 mg PO BEDTIME [facility] Last Admin: 08/27/24 20:58 Dose: 17.2 mg Documented By: ZEUS Sertraline HCl (Sertraline Hcl 50 Mg Tablet) 50 mg PO DAILY [facility] Last Admin: 08/28/24 08:45 Dose: 50 mg Documented By: INGRIS Sodium Chloride (0.9 % Sodium Chloride Flush 3 Ml Syringe) 3 ml IVFLUSH QSHIFT [facility] Last Admin: 08/28/24 16:27 Dose: 3 ml Documented By: INGRIS Tamsulosin HCl (Tamsulosin Hcl 0.4 Mg Capsule) 0.4 mg PO DAILY [facility] Last Admin: 08/28/24 08:45 Dose: 0.4 mg Documented By: INGRIS Zolpidem Tartrate (Zolpidem Tartrate 5 Mg Tablet) 5 mg PO BEDTIME PRN PRN Reason: Insomnia Labs 08/28/24 06:52 08/28/24 06:52 Labs: Laboratory Results - last 24 hr 08/28/24 06:52 MCV 96.3 MCH 30.9 MCHC 32.1 RDW 16.4 H Plt Count 245 MPV 10.1 Immature Gran % (Auto) 0.6 H Neut % (Auto) 71.4 Lymph % (Auto) 12.3 L [place] % (Auto) 12.5 H Eos % (Auto) 2.9 Baso % (Auto) 0.3 Lymph # (Auto) 0.8 L [place] # (Auto) 0.8 Eos # (Auto) 0.2 Baso # (Auto) 0.0 Abs Immat Gran (auto) 0.04 H Absolute Neuts (auto) 4.6 Absolute Nucleated RBC 0.000 Nucleated RBC % (auto) 0.0 Anion Gap 13 Estim Creat Clear Calc 66.6 Estimated GFR 59 Fasting Glucose 85 Calcium 8.9 Total Bilirubin 0.4 AST 33 ALT 17 Alkaline Phosphatase 85 Total Protein 5.8 L Albumin 3.4 L Microbiology Microbiology Results: Microbiology 08/26/24 17:28 Blood Culture - Preliminary Blood - Venous No growth after 24 hours. 08/26/24 17:10 Blood Culture - Preliminary Blood - Venous No growth after 24 hours. Assessment and Plan (1) Pneumonia: Status: Acute (2) Acute hypoxic respiratory failure: Status: Acute Plan Patient is a 79-year-old male with past medical history of hypertension, atrial fibrillation on Eliquis, depression/anxiety, obesity, bilateral shoulder repairs, renal carcinoma now cleared and in remission, HFrEF, COPD, cellulitis, neuropathy, chronic kidney disease stage 3, insomnia, chronic pain related to left shoulder, BPH, ascending aortic aneurysm currently 4.1, and diverticulitis is being admitted for acute hypoxic respiratory failure and left lower lobe pneumonia, community-acquired. 1.Acute hypoxic respiratory failure/left lower lobe pneumonia -Zosyn/vancomycin(3) -incentive spirometry/ duo nebs prn 2.HFrEF -stable and well compensated -continue outpatient therapies 3. Paroxysmal Atrial fibrillation -acceptable rate control -adjust as indicated -Eliquis as ordered 4.CKD Stage 3 -stable follow renals/divalents Eliquis Full code Patient requires ongoing hospitalization for IV antibiotics to treat pneumonia that has failed outpatient therapy Quality Stroke Does the patient have a stroke diagnosis?: No Reason for No Anti-thrombotic by Day Two: N/A - Med Ordered VTE Prior VTE?: No VTE Risk Level:: Medical - moderate - high VTE Device Contraindication: N/A - Device Ordered VTE Drug Contraindication: N/A - Med Ordered
[2024-08-28] MEDS: Gabapentin 300 MG CAPSULE PO (20:12)
[2024-08-28 20:33] LABS: Vancomycin Random 11.4 mcg/mL (15-20)
--- NOTE | 2024-08-28 20:45 | HE.PHANOTE ---
VANCO DOSE ADJUSTMENT BASED ON SCR AND TROUGH OF 11.4 DOSE INCREASE TO 1750 Q24. NEXT LEVEL 08/30 @ 1999
[2024-08-28] MEDS: Zolpidem Tartrate 5 MG TABLET PO (21:59)
[2024-08-28] MEDS: vancomycin HCL 1,000 MG, vancomycin HCL 750 MG in 0.9 % Sodium Chloride 500 ML 267.5 MG IV (23:34)
[2024-08-29 02:59] VITALS: BP 154/67; PULSE 67; RESP 18; TEMP 37.2; O2SAT 91
[2024-08-29] MEDS: oxyCODONE HCl Immed Release 5 MG TABLET PO (03:06)
[2024-08-29] MEDS: guaiFENesin 200 MG/10 ML 10 ML LIQUID PO (05:39)
[2024-08-29] MEDS: Piperacillin Sodium/Tazobactam 3.375 GM in 0.9 % Sodium Chloride 50 ML IV ×2 (05:39→11:20)
[2024-08-29 08:00] VITALS: BP 173/74; PULSE 69; RESP 18; TEMP 37.2; O2SAT 92
[2024-08-29 08:31] LABS: Creatinine Clr Calc Pharmacy 72.7; Estimated Glomerular Filt Rate > 60
[2024-08-29] MEDS: Metoprolol Tartrate 12.5 MG HALFTAB PO (09:22)
[2024-08-29] MEDS: Amphetamine Mixed Salts 10 MG TABLET 7.5 MG PO (09:22)
[2024-08-29] MEDS: Docusate Sodium 100 MG CAPSULE PO (09:22)
[2024-08-29] MEDS: cilostazoL 50 MG TABLET PO (09:23)
[2024-08-29] MEDS: oxyCODONE HCl Immed Release 5 MG TABLET 10 MG PO (09:23)
[2024-08-29] MEDS: QUEtiapine Fumarate 25 MG TABLET PO (09:23)
[2024-08-29] MEDS: clonazePAM 1 MG TABLET PO (09:23)
[2024-08-29] MEDS: Dronedarone HCl 400 MG TABLET PO (09:23)
[2024-08-29] MEDS: Sertraline HCL 50 MG TABLET PO (09:23)
[2024-08-29] MEDS: Atorvastatin Calcium 80 MG TABLET PO (09:24)
[2024-08-29] MEDS: Apixaban 5 MG TABLET PO (09:24)
[2024-08-29] MEDS: Tamsulosin HCL 0.4 MG CAPSULE PO (09:24)
[2024-08-29] MEDS: Aspirin Enteric Coated 81 MG TABLET.DR PO (09:24)
[2024-08-29] MEDS: 0.9 % Sodium Chloride Flush 3 ML SYRINGE IVFLUSH (09:24)
--- NOTE | 2024-08-29 11:10 | MHC.CM.PN ---
PT MEDICALLY CLEARED FOR DC HOME W/RESUMP OF [facility], PT'S Javon ALVAREZ WILL TRANSPORT
[2024-08-29 12:00] VITALS: BP 122/58; PULSE 73; RESP 18; TEMP 37.2; O2SAT 94
--- NOTE | 2024-08-29 12:35 | PM.DS ---
DS: Providers Provider Date of Service: 08/29/24 Date of admission: 08/26/24 20:30 Date of discharge: 08/29/24 Primary care physician: Sesar Pereyra MD DS: Diagnosis Discharge Diagnosis (1) Pneumonia: Status: Acute (2) Acute hypoxic respiratory failure: Status: Acute DS: Summary Hospital Course Hospital Course: 79-year-old male with past medical history of hypertension, atrial fibrillation on Eliquis, depression/anxiety, obesity, bilateral shoulder repairs, renal carcinoma now cleared and in remission, HFrEF, COPD, cellulitis, neuropathy, chronic kidney disease stage 3, insomnia, chronic pain related to left shoulder, BPH, ascending aortic aneurysm currently 4.1, and diverticulitis reports 2 days of worsening fever and chills to the point that patient was shivering last night prior to trying to sleep. Patient was recently discharged from the hospital August 23 for dyspnea. Patient was discharged home on doxycycline. Patient currently lives alone but notified his brother and his brother brought him into the emergency department today. Patient was intermittently hypoxic, requiring oxygen and is currently on room air pulse ox 94%. Pt was noted to drop his POX with walking to 84%. There is evidence of left lower lobe pneumonia via chest x-ray. Patient has a nonproductive cough. Currently afebrile but temp 101 on arrival. Lactic acid was 2.4 and is now 1.2. Patient has a leukocytosis of 12.2, no bandemia. Patient currently denies any chest pain, shortness of breath at rest, abdominal pain, , nausea, vomiting, chills or lower calf pain. Viral studies were all negative. Patient has not traveled recently or been exposed to anyone with respiratory illness. Patient is started on Zosyn in the emergency department and we are adding vancomycin. Hospital Course Patient admitted and started again on vanco and Zosyn. Over the next 48 hours he had a marked improvement. Given such he will be discharged again on Augmentin and doxycycline and will follow up with his PCP next available. Last nursing and physical therapy to assist with patient's rehab Time Attestation Discharge Coordination Time (in mins): 35 Quality: Safe Use of Opioids Does Pt have an Active Cancer Diagnosis on the Problem List?: No Quality: Stroke Does the patient have a stroke diagnosis?: No Physical Exam Vital Signs: Vital Signs: Last Vital Signs Temp 98.9 F 08/29/24 12:00 Pulse 73 08/29/24 12:00 Resp 18 08/29/24 12:00 BP 122/58 L 08/29/24 12:00 Pulse Ox 94 08/29/24 12:00 O2 Del Method Room Air 08/29/24 12:00 O2 Flow Rate 1 08/27/24 04:00 BMI result Body Mass Index 31.6 Const: Other: Awake alert oriented x3 in no acute distress Resp: Other: Diminished throughout with crackles bilateral lower johnson Cardio: Other: No S4; positive S1-S2; no S3 murmurs rubs or gallops GI: Other: Soft nontender nondistended normoactive bowel sounds Extrem: Other: No edema bilaterally DS: Data Data Completed and Pending Completed studies during hospitalization [Text1]: Procedures Introduction of Anesthetic Agent into Peripheral Nerves and Plexi, Percutaneous Approach (06/19/24) Reattachment of Left Shoulder Tendon, Percutaneous Endoscopic Approach (06/19/24) Reposition Left Shoulder Joint, External Approach (06/19/24) Labs on day of discharge: Laboratory Results - last 24 hr 08/28/24 08/29/24 19:57 07:04 Hold Purple Top SEE NOTE Creatinine 1.10 Estim Creat Clear Calc 72.7 Estimated GFR > 60 Random Vancomycin 11.4 L Preliminary micro results at discharge 08/26/24 17:28 Blood Culture - Preliminary Blood - Venous No growth after 48 hours. 08/26/24 17:10 Blood Culture - Preliminary Blood - Venous No growth after 48 hours. Discharge Plan Discharge Anticipated Discharge Date/Time: 08/29/24 12:29 Patient Disposition: Home Health Service Discharge Diagnosis: Left lower lobe pneumonia Referrals: [facility] [Outside] - 1 Day (RESUMPTION OF SERVICES) Sesar Pereyra MD [Primary Care Provider] - 3 days Discharge Medications: New doxycycline hyclate 100 mg tablet 100 mg PO BID 7 Days Qty: 14 0RF amoxicillin-pot clavulanate 875-125 mg tablet 1 tab PO BID 7 Days Qty: 14 0RF Continued cilostazol 50 mg tablet 50 mg PO BID furosemide 40 mg tablet 40 mg PO DAILY Qty: 90 3RF oxycodone 5 mg tablet 5 mg PO Q8H PRN (Reason: pain) Qty: 21 0RF Rx Instructions: Partial Fill upon patient request. atorvastatin 80 mg tablet 80 mg PO DAILY Eliquis 5 mg tablet 5 mg PO BID sertraline 50 mg tablet 50 mg PO DAILY polyethylene glycol 3350 17 gram Powder In Packet 17 g PO BEDTIME 30 Days Qty: 30 0RF gabapentin 100 mg capsule 300 mg PO BEDTIME dextroamphetamine-amphetamine 7.5 mg tablet 1 tab PO DAILY Multaq 400 mg Tablet 400 mg PO BID Qty: 180 0RF aspirin 81 mg tablet,delayed release (DR/EC) 81 mg PO DAILY metoprolol tartrate 25 mg tablet 12.5 mg PO BID albuterol sulfate [Ventolin HFA] 90 mcg/actuation Hfa Aerosol Inhaler 2 puff inhalation RQ4H PRN (Reason: sob) Qty: 1 0RF docusate sodium 100 mg capsule 100 mg PO DAILY quetiapine 25 mg tablet 25 mg PO BID clonazepam 0.5 mg tablet 0.5 mg PO BID hydralazine 25 mg tablet 25 mg PO BID 30 Days Qty: 60 4RF Rx Instructions: New med for BP celecoxib [Celebrex] 200 mg capsule 200 mg PO DAILY Qty: 30 1RF tamsulosin 0.4 mg capsule 0.4 mg PO DAILY melatonin 3 mg capsule 3 mg PO BEDTIME PRN (Reason: Sleep) Discharge Orders: Discharge Order (Routine); Ordered 08/29/24 Ordered By: Lenard Freedman Diet: Advance to usual diet Activity on Discharge: As tolerated Stand Alone Forms: Patient Portal Discharge page Print Language: Tajik Activity Restrictions/Additional Instructions: You have pneumonia Augmentin and doxycycline are antibiotics please take as prescribed Please continue all other home prescribed medications Keep her fever under control, take Tylenol as needed If her symptoms persist or worsen you constant or worsening cough, shortness of breath, chest pain, fever unresolved with medications return to the ED immediately Have close follow up with your doctor in the next 3-5 days Care Plan Goals: Resume all medicines as taken previous to hospitalization. Health Concerns: Follow up with PCP next available Plan of Treatment: Physical therapy we will see you in-house to assist with your rehab Assessment: See discharge summary Patient Instructions: Pneumonia (ED)
--- NOTE | 2024-08-29 12:37 | P.F2F_ITS ---
Service Date Service Date: 08/29/24 Encounter Date of encounter: 08/29/24 Encounter: Acute hospitalization Reasons for Services Signs and symptoms assessed: We will need to assess pulmonary status including O2 sats and physical therapy we will need to assist with rehab and gait training Reason for penitentiary: medication management and other (Assess oxygen saturation and lung sounds) Reason for physical therapy: restore joint function and gait/transfer training Homebound: Leaving the home is medically contraindicated at this time without the asist of a device and/or another person due th the listed conditions above and below. Reason homebound: unsteady gait / fall risk Certification: Based on the above findings, I certify that this patient is confined to the home and needs intermittent penitentiary care, physical therapy and/or speech therapy, or continues to need occupational therapy. The patient is under my care, and I have initiated the establishment of the plan of care. The patient will be followed by a physician who will periodically review the plan of care. Time Spent With Patient Time: Total time managing care of this patient today ____ minutes.
[2024-08-29 15:22] VITALS: BP 180/75; PULSE 98; RESP 18; TEMP 37.7; O2SAT 92
--- NOTE | 2024-09-06 08:34 | P.CDIM_ITS ---
PROVIDER RESPONSE TEXT: To clarify, the appropriate diagnosis supported by the clinical indicators: Sepsis is/was present and is a clinical diagnosis QUERY TEXT: PHYSICIAN'S DOCUMENTATION REQUEST Date of Query: 09/04/2024 06:59 AM EDT Patient Name: Alex Nettles Admit Date: 08/27/2024 Dear Lenard Freedman DO, A review of the medical record indicates additional documentation may be needed. Please review below and update the documentation accordingly. Documentation on the H&P dated 08/26/24 included the diagnosis of sepsis. The patient's infectious clinical indicators include: WBC 12.2 temperature 101.0 pulse 90 Patient was treated for pneumonia with IV antibiotics, incentive spirometry, duo nebs as needed, anti tussives Sepsis is not noted in the Discharge Summary 08/29/24 Recognized standard criteria for this condition and other infectious definitions includes: Sepsis Systemic manifestations of infection, with 2 or more SIRS criteria which include: Fever > 100.4?F or hypothermia < 96.8?F Leukocytosis - WBC > 12,000 or leukopenia, WBC < 4,000, or > 10% bands Tachycardia- > 90 beats/minute Tachypnea- RR > 20 breaths/minute or PaCO2 < 32mmHg Source: [employer] Manual 2013 Documentation should include the known or suspected organism, and the underlying infection, such as U TI or pneumonia Based on the above information and the recognized standard for sepsis, could you please clarify if th is diagnoses is still accurate and reflective of the patient's condition to ensure quality of the medical record. Sepsis is/was present and is a clinical diagnosis After study, Sepsis has been ruled out Other (explain) Clinically unable to determine (explain) Thank you, Shandra Wu RN Use of terms such as suspected, likely, concern for, or probable (associated with a specific diagnosi s that is being evaluated, monitored, or treated as if it exists) are acceptable and can be coded in the inpatient se tting, when documented at the time of discharge. Please use your independent medical judgment in providing your response. THIS QUERY IS PART OF THE PERMANENT MEDICAL RECORD
== END 2024-08-29 15:55 | disposition home health service (06) | DRG 871 ==
LOC: HO.ED 20:19 → HO.EDOVER 20:36 → HO.IMC 08-27 17:04
PROVIDERS: Physician Assistant; Student in an Organized Health Care Education/Training Program; Admitting Provider Nurse Practitioner Family; Emergency Provider Emergency Medicine; PCP Internal Medicine; Visit Provider Hospitalist
DX: A41.9 Sepsis, unspecified organism (principal); J18.9 Pneumonia, unspecified organism; J96.01 Acute respiratory failure with hypoxia; I13.0 Hypertensive heart and chronic kidney disease with heart failure and stage 1 through stage 4 chronic kidney disease, or unspecified chronic kidney disease; I50.22 Chronic systolic (congestive) heart failure; J44.0 Chronic obstructive pulmonary disease with (acute) lower respiratory infection; R94.31 Abnormal electrocardiogram [ECG] [EKG]; I25.10 Atherosclerotic heart disease of native coronary artery without angina pectoris; N18.30 Chronic kidney disease, stage 3 unspecified; I48.0 Paroxysmal atrial fibrillation; Z20.822 Contact with and (suspected) exposure to COVID-19; Z85.528 Personal history of other malignant neoplasm of kidney; Z87.891 Personal history of nicotine dependence; Z79.01 Long term (current) use of anticoagulants; Z79.82 Long term (current) use of aspirin; Z79.899 Other long term (current) drug therapy
CPT/HCPCS: 0241U; 36415; 71046; 73030; 80048; 80053; 80202; 82565; 83605; 83690; 83735; 83880; 85025; 85652; 86140; 87040; 93005; 97116; 97161; 99285; J1271; J1885; J2543; J3370; J3371; J8540

== ENCOUNTER → 2024-08-26 12:23 | Outpatient (BNV) | payer MEDICARE, MEDICAID, SELFPAY | PROVIDERS: PCP Internal Medicine; Visit Provider Radiology Diagnostic Radiology | DX: J18.9 Pneumonia, unspecified organism (principal); J44.9 Chronic obstructive pulmonary disease, unspecified | CPT/HCPCS: 71046 ==

== ENCOUNTER → 2024-08-26 16:57 | Outpatient (BNV) | payer MEDICARE, MEDICAID, SELFPAY | PROVIDERS: Admitting Provider Nurse Practitioner Family; Emergency Provider Emergency Medicine; PCP Internal Medicine; Visit Provider Internal Medicine Cardiovascular Disease | DX: I49.1 Atrial premature depolarization (principal) | CPT/HCPCS: 93010 ==

== ENCOUNTER 2024-08-26 20:30 | Outpatient (BNV) | payer MEDICARE, MEDICAID, SELFPAY | END 2024-08-27 07:00 | PROVIDERS: Admitting Provider Nurse Practitioner Family; Emergency Provider Emergency Medicine; PCP Internal Medicine; Visit Provider Internal Medicine Cardiovascular Disease | DX: I49.9 Cardiac arrhythmia, unspecified (principal) | CPT/HCPCS: 93010 ==

== ENCOUNTER → 2024-08-26 20:30 | Outpatient (BNV) | payer MEDICARE, MEDICAID, SELFPAY | PROVIDERS: Admitting Provider Nurse Practitioner Family; Emergency Provider Emergency Medicine; PCP Internal Medicine; Visit Provider Nurse Practitioner Family | DX: J96.01 Acute respiratory failure with hypoxia (principal) | CPT/HCPCS: 99222 ==

== ENCOUNTER 2024-09-09 05:39 | Inpatient (IN) | payer MEDICARE, OTHER, SELFPAY ==
[2024-09-09] VITALS (14 sets, daily range): BP systolic 118–185; BP diastolic 51–70; PULSE 61–97; RESP 16–23; TEMP 37–38.2; O2SAT 87–98; BMI 31.5
--- NOTE | 2024-09-09 | ECG_ITS ---
Test Reason : SOB Blood Pressure : */* mmHG Vent. Rate : 72 BPM Atrial Rate : 72 BPM P-R Int : 208 ms QRS Dur : 74 ms QT Int : 490 ms P-R-T Axes : 82 -7 -19 degrees QTcB Int : 536 ms Normal sinus rhythm Septal infarct (cited on or before 27-Aug-2024) Abnormal ECG When compared with ECG of 27-Aug-2024 07:28, ST now depressed in Inferior leads Inverted T waves have replaced nonspecific T wave abnormality in Inferior leads T wave inversion now evident in Anterior leads Referred By: Generic ED Physician Electronically Signed By: LATOYA JOHNSON MD
--- NOTE | ~2024-09-09 | XR_ITS ---
CLINICAL HISTORY: dyspnea 1 view chest x-ray Comparison: 08/20/2024 Findings: There is consolidation in the left lung base, possible pneumonia or subsegmental atelectasis. Normal size heart. No acute fracture. IMPRESSION: 1. Left basilar consolidation, differential considerations noted. This document has been electronically signed by: Nhan Olivas MD on 09/09/2024 06:21:14
--- NOTE | ~2024-09-09 | XR_ITS ---
EXAMINATION: XR SHOULDER, LEFT CLINICAL INFORMATION: Shoulder pain s/p surgery COMPARISON: None available. TECHNIQUE: Two views of the left shoulder. FINDINGS: There is mild diffuse osteopenia. No fracture, dislocation, or suspicious bone lesion. Normal alignment. The glenohumeral joint demonstrates at least moderate degenerative arthritis. Evaluation limited by obliquity. The AC joint demonstrates mild to moderate spurring, predominantly superior surface. There is a type II acromion. No undersurface spurring. The subacromial space is preserved. On the Y view, calcification in the region of the teres minor may represent loose body. XR/XR shoulder LT min 2V IMPRESSION: 1. No acute finding of the left shoulder on these 2 limited views. 2. At least moderate and likely severe degenerative arthritis of the glenohumeral joint. 3. Calcification in the region of the teres minor tendon on the Y-view, possibly on the basis of loose body. Electronically signed by: Jaquan Guillen MD 09/12/2024 01:16 PM EDT
--- NOTE | ~2024-09-09 | CT_ITS ---
EXAMINATION: CT CHEST WITHOUT IV CONTRAST INDICATION: Dyspnea COMPARISON: Comparison is made with the prior examination dated 03/18/2024. TECHNIQUE: Helical CT scan of the chest was performed without intravenous contrast. Coronal and sagittal reformatted images were generated and reviewed. This CT exam was performed with one or more of the following dose reduction techniques: automated exposure control, adjustment of the mA and/or kV according to patient size, use of iterative reconstruction technique. DLP: 570 mGy-cm CHEST: THYROID: The thyroid is unremarkable. LUNGS: There is moderate emphysema. There are confluent airspace opacities with air bronchograms in both lower lobes, consistent with pneumonia. MEDIASTINUM: There is a 1.4 cm right paratracheal lymph node which is larger than on the prior study. ALEX: Evaluation of the hilar regions is limited by lack of intravenous contrast material. CARDIOVASCULATURE: The heart is enlarged. There is no pericardial effusion. There is dilatation of the ascending thoracic aorta measuring up to 4.7 cm in diameter. DEGREE OF CORONARY CALCIFICATION: severe PLEURA: There is no pleural effusion. No pneumothorax. MAIN AIRWAYS: The mainstem bronchi and proximal branches are patent. AXILLA: There is no axillary lymphadenopathy. BONES AND SOFT TISSUES: There is degenerative disc disease of the spine. UPPER ABDOMEN: There are multiple subcentimeter hypodensities in the liver which likely represent cysts, but are too small to accurately characterize. The visualized portion of the spleen has an unremarkable unenhanced appearance. Again seen is a 1.1 cm right adrenal adenoma. CT/CT chest wo IV con IMPRESSION: 1. Moderate emphysema. Bilateral lower lobe pneumonia. Follow-up is recommended, to document resolution. 2. Cardiomegaly. Dilatation of the ascending thoracic aorta measuring up to 4.7 cm in diameter. Electronically signed by: Anuj Hendrickson MD 09/11/2024 10:43 AM EDT
[2024-09-09] MEDS: Albuterol Sulfate 7.5 MG, Albuterol Sulfate (0.083%) 2.5 MG 10 MG INHALE (06:13)
[2024-09-09 06:35] LABS: MANUAL DIFF FLAG NO
--- NOTE | 2024-09-09 06:35 | MHC.EDTECH ---
assumed care of pt, EKG obtained as well as blood work and SARS specemin, EKG report given to provider and specemins sent to lab
--- NOTE | 2024-09-09 06:36 | PC.NURSE ---
20g R forearm. pt very anxious, RT at bedside for treatment.
[2024-09-09 06:48] LABS: Basophils Percent Auto 0.2 % (0-2); Eosinophils Absolute Auto 0.1 X10*3/uL (0.0-0.4); Eosinophils Percent Auto 0.3 % (0-4); Hemoglobin 14.3 g/dl (14.0-18.0); Imm Gran Abs Auto 0.07 X10*3/uL (0.00-0.03); Imm Gran Pct Auto 0.4 % (0.0-0.4); Lymphocytes Absolute Auto 0.7 X10*3/uL (1.2-4.9); Lymphocytes Percent Auto 4.2 % (20-40); Mean Corpuscular HGB Conc 33.3 g/dl (31.0-36.0); Mean Corpuscular Hemoglobin 30.7 pg (27.0-33.0); Mean Corpuscular Volume 92.3 fL (80.0-98.0); Mean Platelet Volume 10.3 fL (9.4-12.4); Monocytes Absolute Auto 0.9 X10*3/uL (0.1-1.2); Monocytes Percent Auto 5.2 % (2-11); Neutrophils Absolute Auto 15.2 x10*3/uL (2.0-8.3); Neutrophils Percent Auto 89.7 % (45-73); Platelet Count 398 X10*3/uL (160-400); Red Blood Count 4.66 X10*6/uL (4.60-5.80); Red Cell Distribution Width 16.2 % (11.0-16.0)
[2024-09-09] MEDS: Midazolam HCl 2 MG/2 ML VIAL 1 MG IVPUSH (06:49)
[2024-09-09 06:58] LABS: B Type Natriuretic Peptide 131 pg/mL (<100); Troponin-I High Sensitivity 12.8 ng/L (<3.5-35.0)
[2024-09-09 07:20] LABS: Influenza A PCR NEGATIVE (Negative); Influenza B PCR NEGATIVE (Negative); Resp Syncy Virus RNA Qual PCR NEGATIVE (Negative); SARS COV2 PCR INHOUSE NEGATIVE (Negative)
--- NOTE | 2024-09-09 07:21 | ED_ITS ---
HPI - SOB/Dyspnea General Chief Complaint: Dyspnea Stated Complaint: SOB/HYPERTENSIVE/AFIB Time Seen by Provider: 09/09/24 07:03 History of Present Illness HPI Narrative: 79-year-old male with a past medical history CHF, AFib on Eliquis, CAD, renal cell carcinoma, CKD, HLD, BPH, mood disorder, COPD, obesity. Was in the hospital 2 weeks ago at that time for pneumonia COPD. Was discharged on Augmentin. Baseline not on home O2. Presents today with having increasing shortness of breath. Coughing upper respiratory symptoms. Patient was noted to have an O2 sat of 87% on room air feeling weak tired. Generalized malaise. Decreased p.o. intake. Came back in for further evaluation there is no fever detected. Patient claims compliance taking his Eliquis. Related Data Home Medications ?Medication ?Instructions ?Recorded ?Confirmed docusate sodium 100 mg capsule 100 mg PO DAILY 08/17/21 08/26/24 apixaban 5 mg tablet (Eliquis) 5 mg PO BID 01/27/22 08/26/24 atorvastatin 80 mg tablet 80 mg PO DAILY 01/27/22 08/26/24 sertraline 50 mg tablet 50 mg PO DAILY 07/06/22 08/26/24 quetiapine 25 mg tablet 25 mg PO BID 12/28/22 08/26/24 tamsulosin 0.4 mg capsule 0.4 mg PO DAILY 03/07/23 08/26/24 cilostazol 50 mg tablet 50 mg PO BID 03/27/23 08/26/24 clonazepam 0.5 mg tablet 0.5 mg PO BID Anxiety 11/15/23 08/26/24 dextroamphetamine-amphetamine 7.5 1 tab PO DAILY 03/18/24 08/26/24 mg tablet melatonin 3 mg capsule 3 mg PO BEDTIME PRN Sleep 04/12/24 08/26/24 aspirin 81 mg tablet,delayed 81 mg PO DAILY 07/11/24 08/26/24 release metoprolol tartrate 25 mg tablet 12.5 mg PO BID 07/11/24 08/26/24 gabapentin 100 mg capsule 300 mg PO BEDTIME Pain (Scale 08/21/24 08/26/24 Score 1-3) Previous Rx's ?Medication ?Instructions ?Recorded dronedarone 400 mg tablet (Multaq) 400 mg PO BID #180 tabs 03/21/24 furosemide 40 mg tablet 40 mg PO DAILY #90 tabs 04/16/24 hydralazine 25 mg tablet 25 mg PO BID 30 days #60 tabs 04/19/24 polyethylene glycol 3350 17 gram 17 g PO BEDTIME 30 days #30 ea 06/23/24 oral powder packet albuterol sulfate 90 mcg/actuation 2 puff inhalation RQ4H PRN sob #1 g 07/13/24 aerosol inhaler (Ventolin HFA) celecoxib 200 mg capsule (Celebrex) 200 mg PO DAILY #30 caps 08/01/24 amoxicillin 875 mg-potassium 1 tab PO BID 7 days #14 tabs 08/26/24 clavulanate 125 mg tablet doxycycline hyclate 100 mg tablet 100 mg PO BID 7 days #14 tabs 08/26/24 oxycodone 5 mg tablet 5 mg PO Q12H PRN pain #14 tabs 09/05/24 Allergies Allergy/AdvReac Type Severity Reaction Status Date / Time No Known Allergies Allergy Verified 09/09/24 05:51 [No Known Allergies*] Review of Systems 2 Review of Systems: Positive shortness of breath coughing upper respiratory symptoms PMFSH Past Medical History Attestation statement: The following information was validated with the patient. Medical History Paroxysmal atrial flutter Preoperative cardiovascular examination Coronary artery disease Hypersomnia Snoring Neuropathy Atherosclerotic cardiovascular disease History of alcohol abuse History of COVID-19 On beta jose at home COPD (chronic obstructive pulmonary disease) On anticoagulant therapy History of atrial fibrillation PVD (peripheral vascular disease) Renal cell carcinoma Hypertension Depression Anxiety Diverticulitis Surgical History History of intestinal surgery History of kidney surgery H/O cardiac catheterization History of colectomy S/P femoral-femoral bypass surgery Social History Social History Household Members: Significant Other Housing: House Are you a primary lawn caretaker to a significant other at home: No Do you presently have visiting nurse or other home services: No Alcohol intake: never Patient Tobacco Use Status: Former Tobacco user Tobacco use type: Cigarette Smoked in Last 30 Days: No Second Hand Smoke Exposure: No Use of substances other than those prescribed or required for medical reasons: No Substance Use Type: Marijuana Advance Directives: Yes Advance Directives on File: Yes Advance Directives Date on File: 06/09/21 service: No Current occupational status: retired Current occupation: right hand dominant Physical Exam 2 Vital Signs: Vital Signs: Last Vital Signs Temp 98.8 F 09/09/24 05:48 Pulse 74 09/09/24 06:32 Resp 23 H 09/09/24 06:32 BP 172/64 H 09/09/24 06:32 Pulse Ox 93 09/09/24 06:32 O2 Del Method Nasal Cannula 09/09/24 06:32 O2 Flow Rate 3 09/09/24 06:32 BMI result Body Mass Index 31.5 Appearance: Alert. Oriented X3. No acute distress. Eyes: Pupils equal, round and reactive to light. ENT: Pharynx normal. Neck: Normal inspection. Neck supple. No lymph nodes noted. No crepitus CVS: Normal heart rate and rhythm. Pulses normal. Normal S1 and S2 Respiratory: Diminished breath sounds bilaterally Abdomen: Soft and nontender. No rigidity. No distention. good BS x4 Skin: Skin warm and dry. Normal skin color. Normal skin turgor. Extremities: No lower extremity edema. Neurovascular intact to all extremities. No Lacerations. No Rash Neuro: Oriented X 3. No motor deficit. No sensory deficit. Moving all extermities. No slurred speech Medications Administered Discontinued Medications Generic Name Dose Route Start Last Admin Trade Name Freq PRN Reason Stop Dose Admin Albuterol Sulfate 7.5 mg/ 10 mg 09/09/24 06:07 09/09/24 06:13 Albuterol Sulfate 2.5 mg INHALE 09/09/24 06:08 10 mg ONCE ONE Administration Midazolam HCl 1 mg 09/09/24 06:36 09/09/24 06:49 Midazolam Hcl 2 Mg/2 Ml Vial IVPUSH 09/09/24 06:37 1 mg ONCE ONE Administration Medical Decision Making Medical Decision Making MDM Narrative: History of atrial fibrillation on Eliquis history of COPD/pneumonia presented today with having increasing shortness of breath after finishing outpatient antibiotics. Patient was on Augmentin upon discharge. Presented back with increasing shortness of breath hypoxia noted. Patient's white count was 17. Cultures were obtained antibiotic was started initially a L fluid was ordered as patient is 79 years old with multitude of cardiac risk factors. We will try to give a total of 30 cc/kilos. Less likely to have PE as patient is on Eliquis. My interpretation patient's chest x-ray showed a left lower lobe infiltrate. I reviewed radiology's reading which showed the same. Patient's BNP is 131 there is no evidence for CHF at this point. Patient was started on cefepime and vancomycin as he was recently admitted to the hospital. This should cover for healthcare acquired pneumonia. COVID flu RSV was negative. Steroid magnesium was given. A bronchodilator protocol was given 10 mg albuterol given with only minimal results. Patient will likely require admission. Differential Diagnosis Differential Diagnoses: The differential diagnosis associated with the presentation includes COPD pneumonia Admission/Observation Consideration of admission/observation: Escalation of care including admission/observation considered Consult Healthcare Provider Management of the patient was discussed with: Hospitalist Lab Data MDM Lab Attestation statement: I reviewed the patient's lab results. 09/09/24 06:26 09/09/24 06:26 Labs: Lab Results 09/09/24 Range/Units 06:26 WBC 17.0 H (4.8-10.8) X10*3/uL RBC 4.66 (4.60-5.80) X10*6/uL Hgb 14.3 (14.0-18.0) g/dl Hct 43.0 (42.0-52.0) % MCV 92.3 (80.0-98.0) fL MCH 30.7 (27.0-33.0) pg MCHC 33.3 (31.0-36.0) g/dl RDW 16.2 H (11.0-16.0) % Plt Count 398 D (160-400) X10*3/uL MPV 10.3 (9.4-12.4) fL Immature Gran % (Auto) 0.4 (0.0-0.4) % Neut % (Auto) 89.7 H (45-73) % Lymph % (Auto) 4.2 L (20-40) % [place] % (Auto) 5.2 (2-11) % Eos % (Auto) 0.3 (0-4) % Baso % (Auto) 0.2 (0-2) % Lymph # (Auto) 0.7 L (1.2-4.9) X10*3/uL [place] # (Auto) 0.9 (0.1-1.2) X10*3/uL Eos # (Auto) 0.1 (0.0-0.4) X10*3/uL Baso # (Auto) 0.0 (0.0-0.2) X10*3/uL Abs Immat Gran (auto) 0.07 H (0.00-0.03) X10*3/uL Absolute Neuts (auto) 15.2 H (2.0-8.3) x10*3/uL Absolute Nucleated RBC 0.000 (0.0-0.012) X10*3/uL Nucleated RBC % (auto) 0.0 (0.0-0.2) /100WBC Troponin I High Sens 12.8 D (<3.5-35.0) ng/L B-Natriuretic Peptide 131 H (<100) pg/mL Influenza Type A (PCR) NEGATIVE (Negative) Influenza Type B (PCR) NEGATIVE (Negative) RSV RNA Qual (PCR) NEGATIVE (Negative) SARS-CoV-2 RNA (RT-PCR) NEGATIVE (Negative) Independent Interpretation I performed an independent interpretation of an: EKG (My interpretation patient's EKG showed a sinus rhythm heart rate is 70 NV QRS QTC normal there is previous Q-wave noted not changed from previous) and Plain X-Ray (Left lower lobe infiltrate) Radiology Impression Discussion of test interpretation with radiology: I have reviewed the radiologist's reading. External Record Review External record reviewed: Inpatient record (Inpatient hospitalist record) Chronic Conditions COPD atrial fibrillation Social Determinants Patient?s care significantly limited by Social Determinants of Health including: Problems related to primary support group Critical Care Time Critical Care Time Critical Care Time: Yes Total Critical Care Time: 40 Attestation: I have personally provided 40 minutes of critical care time exclusive of time spent on separately billable procedures. ?Time includes review of lab data, radiology results, discussion with consultants, and monitoring for potential decompensation. ?Interventions were performed as documented above Discharge Plan Discharge Prescriptions: No Action cilostazol 50 mg tablet 50 mg PO BID furosemide 40 mg tablet 40 mg PO DAILY Qty: 90 3RF oxycodone 5 mg tablet 5 mg PO Q12H PRN (Reason: pain) Qty: 14 0RF Rx Instructions: Partial Fill upon patient request. atorvastatin 80 mg tablet 80 mg PO DAILY Eliquis 5 mg tablet 5 mg PO BID sertraline 50 mg tablet 50 mg PO DAILY polyethylene glycol 3350 17 gram Powder In Packet 17 g PO BEDTIME 30 Days Qty: 30 0RF gabapentin 100 mg capsule 300 mg PO BEDTIME dextroamphetamine-amphetamine 7.5 mg tablet 1 tab PO DAILY Multaq 400 mg Tablet 400 mg PO BID Qty: 180 0RF aspirin 81 mg tablet,delayed release (DR/EC) 81 mg PO DAILY metoprolol tartrate 25 mg tablet 12.5 mg PO BID albuterol sulfate [Ventolin HFA] 90 mcg/actuation Hfa Aerosol Inhaler 2 puff inhalation RQ4H PRN (Reason: sob) Qty: 1 0RF doxycycline hyclate 100 mg tablet 100 mg PO BID 7 Days Qty: 14 0RF amoxicillin-pot clavulanate 875-125 mg tablet 1 tab PO BID 7 Days Qty: 14 0RF docusate sodium 100 mg capsule 100 mg PO DAILY quetiapine 25 mg tablet 25 mg PO BID clonazepam 0.5 mg tablet 0.5 mg PO BID hydralazine 25 mg tablet 25 mg PO BID 30 Days Qty: 60 4RF Rx Instructions: New med for BP celecoxib [Celebrex] 200 mg capsule 200 mg PO DAILY Qty: 30 1RF tamsulosin 0.4 mg capsule 0.4 mg PO DAILY melatonin 3 mg capsule 3 mg PO BEDTIME PRN (Reason: Sleep) Print Language: [place]
[2024-09-09] MEDS: Magnesium Sulfate/H2O 2 GM/50 ML PIGGYBACK IV (07:34)
[2024-09-09] MEDS: cefEPime HCl 1 GM in 0.9 % Sodium Chloride 50 ML IV (07:41)
--- NOTE | 2024-09-09 07:42 | PC.NURSE ---
due to short staffing, difficult draw, lab tube down (and VBG ordered to be walked to lab) - ABX were started after 1 set of blood cultures
[2024-09-09 07:49] LABS: VBG Base Excess 0.7 mmol/L; VBG HCO3 22 mmol/L (22-26); VBG pCO2 28 mmHg; VBG pO2 38 mmHg
[2024-09-09 07:55] LABS: Venous Blood Gas Refer to POC result
[2024-09-09 08:01] LABS: Alanine Aminotransferase 16 U/L (0-40); Albumin Level 3.6 g/dL (3.5-5.0); Alkaline Phosphatase 130 U/L (39-117); Anion Gap 15 (12-20); Aspartate Amino Transferase 25 U/L (5-37); Bilirubin Total 0.9 mg/dL (0.0-1.0); Blood Urea Nitrogen 20 mg/dL (9-16); Carbon Dioxide 24 mmol/L (22-29); Chloride 106 mmol/L (96-108); Creatinine Clr Calc Pharmacy 64.6; Estimated Glomerular Filt Rate 59; Glucose Random 125 mg/dL (60-115); Potassium 3.8 mmol/L (3.3-5.1); Sodium 141 mmol/L (135-145); Total Protein 6.6 g/dL (6.5-8.0)
[2024-09-09] MEDS: oxyCODONE HCl Immed Release 5 MG TABLET PO ×3 (08:02→21:42)
[2024-09-09] MEDS: SODIUM CHLORIDE 3156 ML IV (08:03)
[2024-09-09] MEDS: vancomycin HCL 1,500 MG in 0.9 % Sodium Chloride 500 ML 333.33 MG IV (08:09)
[2024-09-09 08:25] LABS: Lactic Acid 2.2 mmol/L (0.5-2.0)
--- NOTE | 2024-09-09 09:02 | P.HPHOSP_ITS ---
History of Present Illness Date of Service: 09/09/24 Chief Complaint: Shortness of breath, cough This is the 5th admission for this patient since Jun 19, 2024. Pt is a 79-year-old male with a PMH significant for?CAD, paroxysmal AFib/flutter Eliquis, CKD 3, HLD, HTN, BPH, and mood disorder most recent hospitalization was from 08/26 and discharge on 08/29 with diagnoses of Pneumonia and discharged with Augmentin. He relates that he felt better after completing antibiotics but over the last several days have been having increasing shortness of breath, cough with clear sputum production. He reports no fever or chills. He was found EMS to have O2 of 87% on room air and went up to 93%with 10 L by NRB. WBC is 17K, Lactic acid 2.2. BNP is 131, CXR shows left basilar pneumonia, ECG no acute ischemic changes. Flu/RSV and covid negative. He's given IV Vanco and Cefepime and is being Review of Systems 2 Review of Systems: Gen: no fever Resp: + sob, + cough CV: no chest, no PADRON, no leg edema GI: No n/v, no abd pain Neuro: No confusion [facility] Medical History Paroxysmal atrial flutter Preoperative cardiovascular examination Coronary artery disease Hypersomnia Snoring Neuropathy Atherosclerotic cardiovascular disease History of alcohol abuse History of COVID-19 On beta jose at home COPD (chronic obstructive pulmonary disease) On anticoagulant therapy History of atrial fibrillation PVD (peripheral vascular disease) Renal cell carcinoma Hypertension Depression Anxiety Diverticulitis Surgical History History of intestinal surgery History of kidney surgery H/O cardiac catheterization History of colectomy S/P femoral-femoral bypass surgery Social History Household Members: Other Household Members Other:: girlfriend Housing: House Are you a primary child care associate teacher to a significant other at home: No Do you presently have visiting nurse or other home services: Yes Alcohol intake: never Patient Tobacco Use Status: Former Tobacco user Tobacco use type: Cigarette Smoked in Last 30 Days: No Second Hand Smoke Exposure: No Use of substances other than those prescribed or required for medical reasons: No Substance Use Type: Marijuana Have you been hit, kicked, punched, or otherwise hurt by someone within the past year? If so, by whom?: No Do you feel safe in your current relationship?: Yes Is there a partner from a previous relationship who is making you feel unsafe now?: No Are you made to feel afraid or neglected: No Nondenominational Healthcare Practices: latter-day Advance Directives: Yes Advance Directives on File: Yes Advance Directives Date on File: 06/09/21 Do you have a plan to hurt others: No Plan Recently lost weight without trying: No Nutrition Risks: No Nutritional Risk service: No Current occupational status: retired Current occupation: right hand dominant Meds Allergies Allergy/AdvReac Type Severity Reaction Status Date / Time No Known Allergies Allergy Verified 09/09/24 05:51 [No Known Allergies*] Home Medications ?Medication ?Instructions ?Recorded ?Confirmed ?Last Taken ?Type docusate sodium 100 mg capsule 100 mg PO DAILY 08/17/21 09/09/24 09/09/24 History apixaban 5 mg tablet (Eliquis) 5 mg PO BID 01/27/22 09/09/24 09/09/24 History atorvastatin 80 mg tablet 80 mg PO DAILY 01/27/22 09/09/24 09/09/24 History sertraline 50 mg tablet 50 mg PO DAILY 07/06/22 09/09/24 09/09/24 History quetiapine 25 mg tablet 25 mg PO BID 12/28/22 09/09/24 09/09/24 History tamsulosin 0.4 mg capsule 0.4 mg PO DAILY 03/07/23 09/09/24 09/09/24 History cilostazol 50 mg tablet 50 mg PO BID 03/27/23 09/09/24 09/09/24 History clonazepam 0.5 mg tablet 0.5 mg PO BID Anxiety 11/15/23 09/09/24 09/09/24 History dextroamphetamine-amphetamine 7.5 1 tab PO DAILY 03/18/24 09/09/24 09/09/24 History mg tablet melatonin 3 mg capsule 3 mg PO BEDTIME PRN Sleep 04/12/24 09/09/24 Unknown History aspirin 81 mg tablet,delayed 81 mg PO DAILY 07/11/24 09/09/24 09/09/24 History release metoprolol tartrate 25 mg tablet 12.5 mg PO BID 07/11/24 09/09/24 09/09/24 History gabapentin 100 mg capsule 300 mg PO BEDTIME Pain (Scale 08/21/24 09/09/24 09/08/24 History Score 1-3) albuterol sulfate 90 mcg/actuation 2 puff inhalation Q4H PRN 09/09/24 09/09/24 Unknown History aerosol inhaler (Ventolin HFA) Shortness Of Breath Or Wheezing oxycodone 5 mg tablet 5 mg PO Q6H PRN pain 09/09/24 09/09/24 Unknown History rivastigmine tartrate 1.5 mg 1.5 mg PO BID 09/09/24 09/09/24 09/09/24 History capsule Physical Exam 2 Vital Signs and Narrative: Vital Signs: Last Vital Signs Temp 98.8 F 09/09/24 05:48 Pulse 70 09/09/24 08:11 Resp 23 H 09/09/24 06:32 BP 124/51 L 09/09/24 08:11 Pulse Ox 94 09/09/24 08:11 O2 Del Method Nasal Cannula 09/09/24 08:11 O2 Flow Rate 4 09/09/24 08:11 BMI result Body Mass Index 31.5 Alert and orientated X3, able to give good history. Neuro: CN II-X11 intact, no deficits, visual acuity intact EYES: PERRLA, EOM intact ENT: hearing intact, no issues with swallowing, uvula midline, lips moist, nares patent no epistaxis Cardiac: S1 S2 RRR, no murmur, no JVD, mild edema in Lower ext Pulmonary: lungs diminished L>R no wheezing or rhonchi noted Abdominal: BS active in all 4 quadrants, no guarding, tenderness, rebounding MSK: strength 5/5 upper R, 3/5 upper Left , pt unable to extend left arm or adduct left arm outwards, and 5/5 B lower extremities : no CVA tenderness no bladder distension Extremities: mild non pitting edema in lower extremities, PT and DP pulses palpable +2 Psych: mood stable, judgement and insight good Skin: no open wounds, chronic discoloration BLEs indicating PVD Results Labs 09/09/24 06:26 09/09/24 07:40 Labs: Laboratory Results - last 24 hr 09/09/24 09/09/24 09/09/24 06:26 07:40 07:45 MCV 92.3 MCH 30.7 MCHC 33.3 RDW 16.2 H Plt Count 398 D MPV 10.3 Immature Gran % (Auto) 0.4 Neut % (Auto) 89.7 H Lymph % (Auto) 4.2 L [place] % (Auto) 5.2 Eos % (Auto) 0.3 Baso % (Auto) 0.2 Lymph # (Auto) 0.7 L [place] # (Auto) 0.9 Eos # (Auto) 0.1 Baso # (Auto) 0.0 Abs Immat Gran (auto) 0.07 H Absolute Neuts (auto) 15.2 H Absolute Nucleated RBC 0.000 Nucleated RBC % (auto) 0.0 VBG pH 7.50 H VBG pCO2 28 VBG pO2 38 VBG HCO3 22 VBG O2 Saturation 60.0 VBG Base Excess 0.7 Anion Gap 15 Estim Creat Clear Calc 64.6 Estimated GFR 59 Random Glucose 125 H Lactic Acid Calcium 9.0 Total Bilirubin 0.9 AST 25 ALT 16 Alkaline Phosphatase 130 H B-Natriuretic Peptide 131 H Total Protein 6.6 Albumin 3.6 Influenza Type A (PCR) NEGATIVE Influenza Type B (PCR) NEGATIVE RSV RNA Qual (PCR) NEGATIVE SARS-CoV-2 RNA (RT-PCR) NEGATIVE 09/09/24 07:54 MCV MCH MCHC RDW Plt Count MPV Immature Gran % (Auto) Neut % (Auto) Lymph % (Auto) [place] % (Auto) Eos % (Auto) Baso % (Auto) Lymph # (Auto) [place] # (Auto) Eos # (Auto) Baso # (Auto) Abs Immat Gran (auto) Absolute Neuts (auto) Absolute Nucleated RBC Nucleated RBC % (auto) VBG pH VBG pCO2 VBG pO2 VBG HCO3 VBG O2 Saturation VBG Base Excess Anion Gap Estim Creat Clear Calc Estimated GFR Random Glucose Lactic Acid 2.2 H* Calcium Total Bilirubin AST ALT Alkaline Phosphatase B-Natriuretic Peptide Total Protein Albumin Influenza Type A (PCR) Influenza Type B (PCR) RSV RNA Qual (PCR) SARS-CoV-2 RNA (RT-PCR) Assessment and Plan (1) Acute hypoxic respiratory failure: Status: Resolved Plan Patient is a 79-year-old male with past medical history of hypertension, atrial fibrillation on Eliquis, depression/anxiety, obesity, bilateral shoulder repairs, renal carcinoma now cleared and in remission, HFrEF, COPD, neuropathy, chronic kidney disease stage 3, insomnia, chronic pain related to left shoulder, BPH, ascending aortic aneurysm currently 4.1, being hospitalized for acute hypoxic respiratory failure due to recurrent pneumonia Acute hypoxic respiratory failure/left lower lobe pneumonia with sepsis Got vanco and Cefepime, will continue on Cefepime and Doxy 09/09 follow cultures O2 with goal sat 94% IC cough medications Acute lactic acidosis d/t hypoxia, not sepsis, ivf and recheck Chronic HFrEF/, no exacerbation continue home dose of diuretics Permanent Atrial fibrillation on Eliquis continue metoprolol for rate controll eliquis for stroke prevention CKD Stage 3 -renal fx stable, avoid hypotension andnephrotoxic agents Chronic Left shoulder pain tatus post surgery 2 months prior for fracture status post fall patient has stopped PT as became too painful outpatient follow up with ortho MED REC pending DVT prophylaixs: eliquis Regular diet Quality Stroke Does the patient have a stroke diagnosis?: No VTE Prior VTE?: No VTE Risk Level:: Medical - moderate - high VTE Device Contraindication: Treatment Not Indicated VTE Drug Contraindication: N/A - Med Ordered
--- NOTE | 2024-09-09 09:16 | PC.NURSE ---
per Dr. Hernandez infuse the 30ml/kg bolus slowly over 3 hours.
[2024-09-09 10:01] LABS: Reflex Lactate? Lactic Acid Added
[2024-09-09] MEDS: Apixaban 5 MG TABLET PO ×2 (10:30→21:41)
[2024-09-09] MEDS: Doxycycline Hyclate 100 MG in 0.9 % Sodium Chloride 250 ML 166.67 MG IV ×2 (10:30→22:27)
[2024-09-09] MEDS: 0.9 % Sodium Chloride Flush 3 ML SYRINGE IVFLUSH (10:37)
[2024-09-09 10:51] LABS: ~Lactic Acid-LAB USE ONLY 2.3 mmol/L (0.5-2.0)
--- NOTE | 2024-09-09 10:59 | PC.NURSE ---
patient is getting 2-nd liter f fluid bolus ,[employer] JUDGE reported bolus is to be infused slowly,patient got one liter in ED ,fluids to be stopped per Dr Galvan
--- NOTE | 2024-09-09 12:10 | HO.SKINPHOTO ---
Location: Category: Stage: Length: Width: Depth: cm Location: Category: Stage: Length: Width: Depth: cm Location: Category: Stage: Length: Width: Depth: cm Location: Category: Stage: Length: Width: Depth: cm Location: Category: Stage: Length: Width: Depth: cm Location: Category: Stage: Length: Width: Depth: cm Bilateral buttocks,wound care consult pending
--- NOTE | 2024-09-09 12:19 | PHA.MEDREC ---
Addendum entered by Korey Church RP 09/09/24 13:12: Reviewed by [facility]. Utilized discharge packet, pharmacy claims, and pt. Original Note: Pharmacy Consult ? Medication Reconciliation Pharmacy has completed the medication reconciliation. Spoke with patient and he was a poor historian but just recently discharged with 08/29 with us and he confirmed there was no changed from that last discharge. Patient also has on hand a list of medications from his med box I was able to use to confirm some of the list. Patient confirmed his Adderall, Clonazepam and Oxycodone. Patient confirmed he takes the Oxycodone 5mg tab Q6H PRN for pain; DC 08/29 indicated pt was taking it Q8H PRN and claims calculate to q12h. Patient confirmed he finished the Doxycycline and Amoxicillin regimens some time last week he stated.Docusate 100mg confirmed in med rec as once daily, claims indicate pt has been taking 2 tabs but pt is not sure how he is taking it at this time and we will keep it once daily since its been confirmed like that on all the pts discharge packets dating back from March 2024.
[2024-09-09 12:25] LABS: Reflex Lactate? 2 Y
[2024-09-09] MEDS: Acetaminophen 325 MG TABLET 650 MG PO (12:47)
[2024-09-09 13:29] LABS: ~Lactic Acid-LAB USE ONLY 3.4 mmol/L (0.5-2.0)
[2024-09-09] MEDS: Lactated Ringers 1,000 ML 150 ML IVCONT (15:25)
[2024-09-09] MEDS: cefEPime HCl/D5W 2 GM/50 ML PIGGYBACK IV (15:26)
[2024-09-09] MEDS: Aspirin Enteric Coated 81 MG TABLET.DR PO (15:28)
[2024-09-09] MEDS: Dronedarone HCl 400 MG TABLET PO ×2 (15:29→21:41)
--- NOTE | 2024-09-09 16:21 | MHC.CLN ---
NUTRITION DIET=REGULAR. WOUNDS DESCRIBED PARTIALLY HEALED BILATERAL BUTTOCKS. FOLLOW FOR SKIN INTEGRITY. MONITOR PO INTAKE. CONSIDER SUPPLEMENT IF DECREASE IN PO INTAKE. SEE CLINICAL NUTRITION ASSESSMENT 09/09/24.
--- NOTE | 2024-09-09 17:00 | HO.WOUND ---
Wound Consult: Initial 79yr old? admitted to [facility] on 09/09/24- See progress notes and H&P for detailed history.? Wound consult placed for Intergluteal fold and bilateral buttock.? Chart review and photo review completed. Discussed with direct care nurse. Intergluteal fold and bilateral buttock Etiology: ??MASD (Moisture Associated Skin Damage) Present on Admission Wound Bed: fold with macerated tissue bilater buttock with dry red friction noted Drainage / Odor: None Edges: mirrored and at base of fold? Nabila wound: [place] intact No Induration, Fluctuance or Warmth noted Goals of Treatment: ? Triad to protect from friction and moisture and off load pressure Recommendations: 1. Turn and Reposition every 2 hours and as needed for patient comfort.? Use pillows or wedges to support off loading positions. 2. Off Load all bony prominences with use of pillows and heel boots if needed.? Apply Preventative foams where needed. ? 3. Monitor for incontinence and moisture control, use barrier creams when needed for prevention and treatment. 4. Provide adequate and supplemental nutrition.? 5. Order low air loss mattress. 6. When applicable maintain blood glucose levels per Providers order. Intergluteal and Buttock - Off Load Pressure with Q2 hr turns and use of pillows - Cleanse with PH balance spray or wipes, pat dry. ?Apply thin layer of Triad to wound bed - only pat and dab no scrub and rub when soiling occurs. Reapply thin layer PRN after each episode of incontinence. Re-consult wound care Nurse for wound deterioration or wound changes.
[2024-09-09] MEDS: clonazePAM 0.5 MG TABLET PO ×2 (18:03→22:30)
[2024-09-09] MEDS: Gabapentin 300 MG CAPSULE PO (21:40)
[2024-09-09] MEDS: Rivastigmine Tartrate 1.5 MG CAPSULE PO (21:40)
[2024-09-09] MEDS: cilostazoL 50 MG TABLET PO (21:40)
[2024-09-09] MEDS: QUEtiapine Fumarate 25 MG TABLET PO (21:40)
[2024-09-09] MEDS: Metoprolol Tartrate 12.5 MG HALFTAB PO (21:40)
[2024-09-09] MEDS: hydrALAZINE HCl 25 MG TABLET PO (21:41)
[2024-09-09] MEDS: polyethylene glycoL 3350 17 GM POWD.PACK PO (21:43)
[2024-09-10] VITALS (7 sets, daily range): BP systolic 130–172; BP diastolic 57–78; PULSE 50–63; RESP 16–18; TEMP 36.6–37.2; O2SAT 95–97
[2024-09-10] MEDS: Lactated Ringers 1,000 ML 150 ML IVCONT ×3 (00:09→15:22)
[2024-09-10] MEDS: cefEPime HCl/D5W 2 GM/50 ML PIGGYBACK IV ×3 (00:59→15:28)
[2024-09-10] MEDS: oxyCODONE HCl Immed Release 5 MG TABLET PO ×4 (06:45→22:18)
[2024-09-10 07:04] LABS: Alanine Aminotransferase 10 U/L (0-40); Albumin Level 2.8 g/dL (3.5-5.0); Alkaline Phosphatase 99 U/L (39-117); Anion Gap 11 (12-20); Aspartate Amino Transferase 17 U/L (5-37); Bilirubin Total 0.3 mg/dL (0.0-1.0); Blood Urea Nitrogen 19 mg/dL (9-16); Calcium 8.1 mg/dL (8.4-10.2); Carbon Dioxide 21 mmol/L (22-29); Chloride 113 mmol/L (96-108); Creatinine Clr Calc Pharmacy 73.8; Estimated Glomerular Filt Rate > 60; Glucose Random 121 mg/dL (60-115); Potassium 3.5 mmol/L (3.3-5.1); Sodium 141 mmol/L (135-145); Total Protein 5.2 g/dL (6.5-8.0)
[2024-09-10] MEDS: Apixaban 5 MG TABLET PO ×2 (07:21→20:53)
[2024-09-10] MEDS: clonazePAM 0.5 MG TABLET PO ×3 (07:21→20:54)
[2024-09-10] MEDS: 0.9 % Sodium Chloride Flush 3 ML SYRINGE IVFLUSH ×2 (07:21→15:27)
[2024-09-10] MEDS: cilostazoL 50 MG TABLET PO ×2 (07:22→20:53)
[2024-09-10] MEDS: QUEtiapine Fumarate 25 MG TABLET PO ×2 (07:22→20:54)
[2024-09-10] MEDS: Dronedarone HCl 400 MG TABLET PO ×2 (07:22→20:53)
[2024-09-10] MEDS: Metoprolol Tartrate 12.5 MG HALFTAB PO ×2 (07:22→20:53)
[2024-09-10] MEDS: Aspirin Enteric Coated 81 MG TABLET.DR PO (07:22)
[2024-09-10] MEDS: hydrALAZINE HCl 25 MG TABLET PO ×2 (07:22→20:53)
[2024-09-10] MEDS: Celecoxib 200 MG CAPSULE PO (07:22)
[2024-09-10] MEDS: Rivastigmine Tartrate 1.5 MG CAPSULE PO ×2 (07:23→20:54)
[2024-09-10] MEDS: Tamsulosin HCL 0.4 MG CAPSULE PO (07:23)
[2024-09-10] MEDS: Furosemide 40 MG TABLET PO (07:23)
[2024-09-10] MEDS: Docusate Sodium 100 MG CAPSULE PO (07:23)
[2024-09-10 09:36] LABS: Hematocrit 35.5 % (42.0-52.0); Hemoglobin 11.9 g/dl (14.0-18.0); Mean Corpuscular HGB Conc 33.5 g/dl (31.0-36.0); Mean Corpuscular Hemoglobin 30.8 pg (27.0-33.0); Mean Platelet Volume 9.8 fL (9.4-12.4); Platelet Count 288 X10*3/uL (160-400); Red Blood Count 3.86 X10*6/uL (4.60-5.80); Red Cell Distribution Width 16.3 % (11.0-16.0); White Blood Count 8.7 X10*3/uL (4.8-10.8)
--- NOTE | 2024-09-10 09:57 | PC.NURSE ---
Report given to CLAUDIA Lerner
[2024-09-10] MEDS: Doxycycline Hyclate 100 MG in 0.9 % Sodium Chloride 250 ML 166.67 MG IV ×2 (10:39→22:17)
--- NOTE | 2024-09-10 10:48 | P.PNIM_ITS ---
Subjective Subjective Date of Service: 09/10/24 Interval History: pneumonia Review of Systems sob and hypoxia improving Review of Systems: Yes all other systems are reviewed and are negative Physical Exam 2 Vital Signs: Vital Signs: Last Vital Signs Temp 99.0 F 09/10/24 07:07 Pulse 63 09/10/24 07:07 Resp 16 09/10/24 07:07 BP 159/74 H 09/10/24 07:07 Pulse Ox 96 09/10/24 07:07 O2 Del Method Nasal Cannula 09/10/24 07:07 O2 Flow Rate 1 09/10/24 07:07 BMI result Body Mass Index 31.5 Appearance: Alert.? Oriented X3.sob somewhat improving. cvs: rrr, [id number] . res: air entry somewhat dimished at bases. abd: no rebound or guarding ,nt, bs present. ext pulses present , no cyanosis . neuro: axo3 , nonfocal. Objective Data Active Medications Acetaminophen (Acetaminophen 325 Mg Tablet) 650 mg PO Q6H PRN PRN Reason: Pain, Mild 1-3,fever,headache Last Admin: 09/09/24 12:47 Dose: 650 mg Documented By: ANGELA Albuterol Sulfate (Albuterol Sulfate 90 Mcg 8 Gm Inhaler) 2 puff INHALE RQ4H PRN PRN Reason: Shortness Of Breath Or Wheezing Apixaban (Apixaban 5 Mg Tablet) 5 mg PO BID [facility] Last Admin: 09/10/24 07:21 Dose: 5 mg Documented By: ANGELA Aspirin (Aspirin Enteric Coated 81 Mg Tablet.) 81 mg PO DAILY [facility] Last Admin: 09/10/24 07:22 Dose: 81 mg Documented By: ANGELA Benzonatate (Benzonatate 100 Mg Capsule) 100 mg PO TID PRN PRN Reason: Cough Calcium Carbonate (Calcium Carbonate 750 Mg Tab.Chew) 750 mg PO Q4H PRN PRN Reason: Heartburn Celecoxib (Celecoxib 200 Mg Capsule) 200 mg PO DAILY [facility] Last Admin: 09/10/24 07:22 Dose: 200 mg Documented By: ANGELA Cilostazol (Cilostazol 50 Mg Tablet) 50 mg PO BID [facility] Last Admin: 09/10/24 07:22 Dose: 50 mg Documented By: ANGELA Clonazepam (Clonazepam 0.5 Mg Tablet) 0.5 mg PO BID [facility] Last Admin: 09/10/24 07:21 Dose: 0.5 mg Documented By: ANGELA Docusate Sodium (Docusate Sodium 100 Mg Capsule) 100 mg PO DAILY [facility] Last Admin: 09/10/24 07:23 Dose: 100 mg Documented By: ANGELA Dronedarone (Dronedarone Hcl 400 Mg Tablet) 400 mg PO BID [facility] Last Admin: 09/10/24 07:22 Dose: 400 mg Documented By: ANGELA Furosemide (Furosemide 40 Mg Tablet) 40 mg PO DAILY [facility]; Protocol Last Admin: 09/10/24 07:23 Dose: 40 mg Documented By: ANGELA Gabapentin (Gabapentin 300 Mg Capsule) 300 mg PO BEDTIME [facility] Last Admin: 09/09/24 21:40 Dose: 300 mg Documented By: BALJINDER Guaifenesin (Guaifenesin 100 Mg/5 Ml 5 Ml Liquid) 5 ml PO Q4H PRN PRN Reason: Cough Hydralazine HCl (Hydralazine Hcl 25 Mg Tablet) 25 mg PO BID [facility]; Protocol Last Admin: 09/10/24 07:22 Dose: 25 mg Documented By: ANGELA Doxycycline Hyclate 100 mg/ (Sodium Chloride) 250 mls @ 166.67 mls/hr IV Q12H [facility] Last Admin: 09/10/24 10:39 Dose: 166.67 mls/hr Documented By: LATESHA Cefepime HCl (Maxipime) 2 gm in 50 mls @ 100 mls/hr IV Q8H [facility] Last Infusion: 09/10/24 07:51 Dose: Infused Documented By: ANGELA Lactated Ringer's (Lr) 1,000 mls @ 150 mls/hr IVCONT .Q6H40M [facility] Last Admin: 09/10/24 06:41 Dose: 150 mls/hr Documented By: BALJINDER Magnesium Hydroxide (Milk Of Magnesia 30 Ml Oral.Susp) 30 ml PO DAILY PRN PRN Reason: Constipation Melatonin (Melatonin 3 Mg Tablet) 3 mg PO BEDTIME PRN PRN Reason: Sleep Metoprolol Tartrate (Metoprolol Tartrate 12.5 Mg Halftab) 12.5 mg PO BID [facility]; Protocol Last Admin: 09/10/24 07:22 Dose: 12.5 mg Documented By: ANGELA Oxycodone HCl (Oxycodone Hcl Immed Release 5 Mg Tablet) 5 mg PO Q4H PRN PRN Reason: Pain, Severe (Pain Scale 7-10) Last Admin: 09/10/24 06:45 Dose: 5 mg Documented By: BALJINDER Polyethylene Glycol (Polyethylene Glycol 3350 17 Gm Powd.Pack) 17 gm PO BEDTIME [facility] Last Admin: 09/09/24 21:43 Dose: 17 gm Documented By: BALJINDER Quetiapine Fumarate (Quetiapine Fumarate 25 Mg Tablet) 25 mg PO BID [facility] Last Admin: 09/10/24 07:22 Dose: 25 mg Documented By: ANGELA Rivastigmine Tartrate (Rivastigmine Tartrate 1.5 Mg Capsule) 1.5 mg PO BID [facility] Last Admin: 09/10/24 07:23 Dose: 1.5 mg Documented By: ANGELA Sodium Chloride (0.9 % Sodium Chloride Flush 3 Ml Syringe) 3 ml IVFLUSH QSHIFT [facility] Last Admin: 09/10/24 07:21 Dose: 3 ml Documented By: ANGELA Tamsulosin HCl (Tamsulosin Hcl 0.4 Mg Capsule) 0.4 mg PO DAILY [facility] Last Admin: 09/10/24 07:23 Dose: 0.4 mg Documented By: ANGELA Labs 09/10/24 09:29 09/10/24 06:10 Labs: Laboratory Results - last 24 hr 09/09/24 09/09/24 09/10/24 10:20 12:38 06:10 MCV MCH MCHC RDW Plt Count MPV Absolute Nucleated RBC Nucleated RBC % (auto) Hold Purple Top SEE NOTE Anion Gap 11 L Estim Creat Clear Calc 73.8 Estimated GFR > 60 Random Glucose 121 H Lactic Acid F/U @ 2Hr 2.3 H* Lactic Acid F/U @ 4Hr 3.4 H* Calcium 8.1 L D Total Bilirubin 0.3 AST 17 ALT 10 Alkaline Phosphatase 99 Total Protein 5.2 L Albumin 2.8 L 09/10/24 09:29 MCV 92.0 MCH 30.8 MCHC 33.5 RDW 16.3 H Plt Count 288 D MPV 9.8 Absolute Nucleated RBC 0.000 Nucleated RBC % (auto) 0.0 Hold Purple Top Anion Gap Estim Creat Clear Calc Estimated GFR Random Glucose Lactic Acid F/U @ 2Hr Lactic Acid F/U @ 4Hr Calcium Total Bilirubin AST ALT Alkaline Phosphatase Total Protein Albumin Microbiology Microbiology Results: Microbiology 09/09/24 07:54 Blood Culture - Preliminary Blood - Venous No growth after 24 hours. 09/09/24 07:40 Blood Culture - Preliminary Blood - Venous No growth after 24 hours. Assessment and Plan (1) PNA (pneumonia): Status: Acute Plan 79-year-old male with past medical history of hypertension, atrial fibrillation on Eliquis, depression/anxiety, obesity, bilateral shoulder repairs, renal carcinoma now cleared and in remission, HFrEF, COPD, neuropathy, chronic kidney disease stage 3, insomnia, chronic pain related to left shoulder, BPH, ascending aortic aneurysm currently 4.1, being hospitalized for acute hypoxic respiratory failure due to recurrent pneumonia Acute hypoxic respiratory failure/left lower lobe pneumonia with sepsis Got vanco and Cefepime, will continue on Cefepime and Doxy 09/09 follow cultures O2 with goal sat 94% IC cough medications pulm eval. Acute lactic acidosis d/t hypoxia, not sepsis, ivf and recheck Chronic HFrEF/, no exacerbation continue home dose of diuretics Permanent Atrial fibrillation on Eliquis continue metoprolol ,eliquis for stroke prevention CKD Stage 3 -renal fx stable, avoid hypotension andnephrotoxic agents Chronic Left shoulder pain tatus post surgery 2 months prior for fracture status post fall patient has stopped PT as became too painful outpatient follow up with ortho MED REC pending DVT prophylaixs: eliquis Regular diet ongoing need for stay:Acute hypoxic respiratory failure/left lower lobe pneumonia with sepsis- taper oxygen, IV antibiotics and pulmonary evaluation Quality Stroke Does the patient have a stroke diagnosis?: No VTE Prior VTE?: No VTE Risk Level:: Medical - moderate - high VTE Device Contraindication: Treatment Not Indicated VTE Drug Contraindication: N/A - Med Ordered
--- NOTE | 2024-09-10 11:28 | MHC.CM.PN ---
PT LIVES WITH HIS GIRLFRIEND HE IS ACTIVE WITH [facility] FOR SN ,PT,OT HE HAS OWN TRANSPORT WHEN DCD DC PLAN HOME W/SERVICES
--- NOTE | 2024-09-10 16:06 | P.CONPL_ITS ---
History of Present Illness History of Present Illness Consult date: 09/10/24 Chief complaint: Dyspnea, hypoxia Narrative: 79-year-old gentleman, former under 20 pack-year smoker, quit 35 years prior, with underlying history of CAD, paroxysmal AFib on anticoagulation, ?COPD, PVD with multiple recent admissions admitted on 09/09/2024 with increasing dyspnea and sputum production associated with hypoxemia. Patient chest imaging was essentially similar to his prior imaging within the last few weeks. Patient was started on empiric antibiotics and admitted to telemetry [facility]. Review of Systems 2 Constitutional: Constitutional: Denies daytime sleepiness, Denies excessive sweating, Denies fatigue, Denies fever(s), Denies lethargy, Denies malaise, Denies night sweats, Denies snoring and Denies weight loss Eyes: Eyes: Denies blurry vision and Denies itchy eyes ENT: Denies nasal congestion, Denies post nasal drip, Denies sinus pain, Denies sinus pressure and Denies other ( Thrush) Cardiovascular: Cardiovascular: Denies chest pain, Denies pedal edema, Denies dyspnea, Reports dyspnea on exertion, Denies orthopnea and Denies paroxysmal nocturnal dyspnea Respiratory: Respiratory: Reports cough, Denies hemoptysis, Denies excessive phlegm production, Denies dyspnea, Reports dyspnea on exertion, Denies snoring and Denies wheezing Gastrointestinal: Gastrointestinal: Denies abdominal pain and Denies heartburn Musculoskeletal: Musculoskeletal: Denies myalgias, Denies arthralgias and Denies joint swelling Integumentary/Breasts: Skin/Breast: Denies rash Neurologic: Denies memory loss and Denies seizure-like activity Psychiatric: Psychiatric: Denies abnormal sleep pattern, Denies anxiety and Denies memory loss Endocrine: Endocrine: Denies excessive sweating, Denies fatigue and Denies heat intolerance Hematologic/Lymphatic: Hematologic/Lymphatic: Denies easy bruising Allergic/Immunologic: Allergic/Immunologic: Denies itchy eyes, Denies seasonal rhinorrhea and Denies wheezing PMFSH Past Medical History Medical History Paroxysmal atrial flutter Preoperative cardiovascular examination Coronary artery disease Hypersomnia Snoring Neuropathy Atherosclerotic cardiovascular disease History of alcohol abuse History of COVID-19 On beta jose at home COPD (chronic obstructive pulmonary disease) On anticoagulant therapy History of atrial fibrillation PVD (peripheral vascular disease) Renal cell carcinoma Hypertension Depression Anxiety Diverticulitis Surgical History Surgical History History of intestinal surgery History of kidney surgery H/O cardiac catheterization History of colectomy S/P femoral-femoral bypass surgery Social History Social History Household Members: Other Household Members Other:: girlfriend Housing: House Are you a primary animal daycare provider to a significant other at home: No Do you presently have visiting nurse or other home services: Yes Alcohol intake: never Patient Tobacco Use Status: Former Tobacco user Tobacco use type: Cigarette Smoked in Last 30 Days: No Second Hand Smoke Exposure: No Use of substances other than those prescribed or required for medical reasons: No Substance Use Type: Marijuana Currently Displaying Signs/Symptoms of Drug Intoxication Withdrawal: No Have you been hit, kicked, punched, or otherwise hurt by someone within the past year? If so, by whom?: No Do you feel safe in your current relationship?: Yes Is there a partner from a previous relationship who is making you feel unsafe now?: No Are you made to feel afraid or neglected: No Hinduism Healthcare Practices: restoration Advance Directives: Yes Advance Directives on File: Yes Advance Directives Date on File: 06/09/21 Do you have a plan to hurt others: No Plan Recently lost weight without trying: No Nutrition Risks: No Nutritional Risk service: No Current occupational status: retired Current occupation: right hand dominant Meds Allergies Allergy/AdvReac Type Severity Reaction Status Date / Time No Known Allergies Allergy Verified 09/09/24 05:51 [No Known Allergies*] Active Medications: Current Medications Acetaminophen (Acetaminophen 325 Mg Tablet) 650 mg PO Q6H PRN PRN Reason: Pain, Mild 1-3,fever,headache Last Admin: 09/09/24 12:47 Dose: 650 mg Albuterol Sulfate (Albuterol Sulfate 90 Mcg 8 Gm Inhaler) 2 puff INHALE RQ4H PRN PRN Reason: Shortness Of Breath Or Wheezing Apixaban (Apixaban 5 Mg Tablet) 5 mg PO BID [facility] Last Admin: 09/10/24 07:21 Dose: 5 mg Aspirin (Aspirin Enteric Coated 81 Mg Tablet.) 81 mg PO DAILY [facility] Last Admin: 09/10/24 07:22 Dose: 81 mg Benzonatate (Benzonatate 100 Mg Capsule) 100 mg PO TID PRN PRN Reason: Cough Calcium Carbonate (Calcium Carbonate 750 Mg Tab.Chew) 750 mg PO Q4H PRN PRN Reason: Heartburn Celecoxib (Celecoxib 200 Mg Capsule) 200 mg PO DAILY [facility] Last Admin: 09/10/24 07:22 Dose: 200 mg Cilostazol (Cilostazol 50 Mg Tablet) 50 mg PO BID [facility] Last Admin: 09/10/24 07:22 Dose: 50 mg Clonazepam (Clonazepam 0.5 Mg Tablet) 0.5 mg PO BID [facility] Last Admin: 09/10/24 07:21 Dose: 0.5 mg Docusate Sodium (Docusate Sodium 100 Mg Capsule) 100 mg PO DAILY [facility] Last Admin: 09/10/24 07:23 Dose: 100 mg Dronedarone (Dronedarone Hcl 400 Mg Tablet) 400 mg PO BID [facility] Last Admin: 09/10/24 07:22 Dose: 400 mg Furosemide (Furosemide 40 Mg Tablet) 40 mg PO DAILY [facility]; Protocol Last Admin: 09/10/24 07:23 Dose: 40 mg Gabapentin (Gabapentin 300 Mg Capsule) 300 mg PO BEDTIME [facility] Last Admin: 09/09/24 21:40 Dose: 300 mg Guaifenesin (Guaifenesin 100 Mg/5 Ml 5 Ml Liquid) 5 ml PO Q4H PRN PRN Reason: Cough Hydralazine HCl (Hydralazine Hcl 25 Mg Tablet) 25 mg PO BID [facility]; Protocol Last Admin: 09/10/24 07:22 Dose: 25 mg Doxycycline Hyclate 100 mg/ (Sodium Chloride) 250 mls @ 166.67 mls/hr IV Q12H [facility] Last Infusion: 09/10/24 12:11 Dose: Infused Cefepime HCl (Maxipime) 2 gm in 50 mls @ 100 mls/hr IV Q8H [facility] Last Infusion: 09/10/24 16:02 Dose: Infused Lactated Ringer's (Lr) 1,000 mls @ 150 mls/hr IVCONT .Q6H40M [facility] Last Admin: 09/10/24 15:22 Dose: 150 mls/hr Magnesium Hydroxide (Milk Of Magnesia 30 Ml Oral.Susp) 30 ml PO DAILY PRN PRN Reason: Constipation Melatonin (Melatonin 3 Mg Tablet) 3 mg PO BEDTIME PRN PRN Reason: Sleep Metoprolol Tartrate (Metoprolol Tartrate 12.5 Mg Halftab) 12.5 mg PO BID [facility]; Protocol Last Admin: 09/10/24 07:22 Dose: 12.5 mg Oxycodone HCl (Oxycodone Hcl Immed Release 5 Mg Tablet) 5 mg PO Q4H PRN PRN Reason: Pain, Severe (Pain Scale 7-10) Last Admin: 09/10/24 14:25 Dose: 5 mg Polyethylene Glycol (Polyethylene Glycol 3350 17 Gm Powd.Pack) 17 gm PO BEDTIME [facility] Last Admin: 09/09/24 21:43 Dose: 17 gm Quetiapine Fumarate (Quetiapine Fumarate 25 Mg Tablet) 25 mg PO BID [facility] Last Admin: 09/10/24 07:22 Dose: 25 mg Rivastigmine Tartrate (Rivastigmine Tartrate 1.5 Mg Capsule) 1.5 mg PO BID [facility] Last Admin: 09/10/24 07:23 Dose: 1.5 mg Sodium Chloride (0.9 % Sodium Chloride Flush 3 Ml Syringe) [facility] Last Admin: 09/10/24 15:27 Dose: 3 ml Tamsulosin HCl (Tamsulosin Hcl 0.4 Mg Capsule) 0.4 mg PO DAILY [facility] Last Admin: 09/10/24 07:23 Dose: 0.4 mg Home Medications ?Medication ?Instructions ?Recorded ?Confirmed ?Last Taken ?Type docusate sodium 100 mg capsule 100 mg PO DAILY 08/17/21 09/09/24 09/09/24 History apixaban 5 mg tablet (Eliquis) 5 mg PO BID 01/27/22 09/09/24 09/09/24 History atorvastatin 80 mg tablet 80 mg PO DAILY 01/27/22 09/09/24 09/09/24 History sertraline 50 mg tablet 50 mg PO DAILY 07/06/22 09/09/24 09/09/24 History quetiapine 25 mg tablet 25 mg PO BID 12/28/22 09/09/24 09/09/24 History tamsulosin 0.4 mg capsule 0.4 mg PO DAILY 03/07/23 09/09/24 09/09/24 History cilostazol 50 mg tablet 50 mg PO BID 11/09/09/24 09/09/24 History clonazepam 0.5 mg tablet 0.5 mg PO BID Anxiety 11/15/23 09/09/24 09/09/24 History dextroamphetamine-amphetamine 7.5 1 tab PO DAILY 03/18/24 09/09/24 09/09/24 History mg tablet melatonin 3 mg capsule 3 mg PO BEDTIME PRN Sleep 04/12/24 09/09/24 Unknown History aspirin 81 mg tablet,delayed 81 mg PO DAILY 07/11/24 09/09/24 09/09/24 History release metoprolol tartrate 25 mg tablet 12.5 mg PO BID 07/11/24 09/09/24 09/09/24 History gabapentin 100 mg capsule 300 mg PO BEDTIME Pain (Scale 08/21/24 09/09/24 09/08/24 History Score 1-3) albuterol sulfate 90 mcg/actuation 2 puff inhalation Q4H PRN 09/09/24 09/09/24 Unknown History aerosol inhaler (Ventolin HFA) Shortness Of Breath Or Wheezing oxycodone 5 mg tablet 5 mg PO Q6H PRN pain 09/09/24 09/09/24 Unknown History rivastigmine tartrate 1.5 mg 1.5 mg PO BID 09/09/24 09/09/24 09/09/24 History capsule Physical Exam 2 Vital Signs: Vital Signs: Last Vital Signs Temp 98.6 F 09/10/24 15:10 Pulse 59 09/10/24 15:10 Resp 16 09/10/24 15:10 BP 151/65 H 09/10/24 15:10 Pulse Ox 97 09/10/24 15:10 O2 Del Method Nasal Cannula 09/10/24 15:10 O2 Flow Rate 1 09/10/24 15:10 BMI result Body Mass Index 31.5 Const: General: no acute distress and alert Nutritional Appearance: not obese Orientation/consciousness: Other orientation findings ( oriented) HEENT: Head: Yes atraumatic Eyes: General: appearance normal, both eyes and all related structures S clerae: sclerae normal EOM: EOMs intact bilaterally Neck: Neck: Yes supple Lymphatic: no lymphadenopathy noted Resp: Effort & Inspection: normal respiratory effort and no use of accessory muscles Auscultation: clear to auscultation bilaterally Cardio: Rate: regular rate Rhythm: regular rhythm Heart sounds: no gallops, no murmurs and no rubs Skin: General skin exam: other ( warm) Extrem: General: No clubbing, No cyanosis and No edema Results Laboratory Findings 09/10/24 09:29 09/10/24 06:10 Abnormal lab findings: Abnormal Labs 09/09/24 09/09/24 09/09/24 06:26 07:40 07:45 WBC 17.0 H RBC Hgb Hct RDW 16.2 H Neut % (Auto) 89.7 H Lymph % (Auto) 4.2 L Lymph # (Auto) 0.7 L Abs Immat Gran (auto) 0.07 H Absolute Neuts (auto) 15.2 H VBG pH 7.50 H Chloride Carbon Dioxide Anion Gap BUN 20 H Random Glucose 125 H Lactic Acid Lactic Acid F/U @ 2Hr Lactic Acid F/U @ 4Hr Calcium Alkaline Phosphatase 130 H B-Natriuretic Peptide 131 H Total Protein Albumin 09/09/24 09/09/24 09/09/24 07:54 10:20 12:38 WBC RBC Hgb Hct RDW Neut % (Auto) Lymph % (Auto) Lymph # (Auto) Abs Immat Gran (auto) Absolute Neuts (auto) VBG pH Chloride Carbon Dioxide Anion Gap BUN Random Glucose Lactic Acid 2.2 H* Lactic Acid F/U @ 2Hr 2.3 H* Lactic Acid F/U @ 4Hr 3.4 H* Calcium Alkaline Phosphatase B-Natriuretic Peptide Total Protein Albumin 09/10/24 09/10/24 06:10 09:29 WBC RBC 3.86 L Hgb 11.9 L Hct 35.5 L RDW 16.3 H Neut % (Auto) Lymph % (Auto) Lymph # (Auto) Abs Immat Gran (auto) Absolute Neuts (auto) VBG pH Chloride 113 H Carbon Dioxide 21 L Anion Gap 11 L BUN 19 H Random Glucose 121 H Lactic Acid Lactic Acid F/U @ 2Hr Lactic Acid F/U @ 4Hr Calcium 8.1 L D Alkaline Phosphatase B-Natriuretic Peptide Total Protein 5.2 L Albumin 2.8 L Microbiology: Microbiology 09/09/24 07:54 Blood - Venous Blood Culture - Preliminary No growth after 24 hours. 09/09/24 07:40 Blood - Venous Blood Culture - Preliminary No growth after 24 hours. Assessment and Plan (1) Acute dyspnea: Status: Acute (2) Acute hypoxic respiratory failure: Status: Resolved Plan Impression: 79-year-old gentleman with underlying significant cardiac is admitted with recurrent dyspnea and hypoxia and empirically treated for hospital-acquired pneumonia. His chest x-ray's have not significantly changed over the last several weeks. His oxygen requirements improved now saturating 97% on 1 L supplemental oxygen. Recommendation: Will obtain CT chest for further evaluation. At this time acute pneumonia is an unlikely source for his underlying dyspnea at has also significantly improved since admission. May have cardiac component. Procedures Date of Service Date of Service: 09/10/24
[2024-09-10] MEDS: Gabapentin 300 MG CAPSULE PO (20:53)
[2024-09-11] VITALS (11 sets, daily range): BP systolic 123–176; BP diastolic 58–79; PULSE 55–65; RESP 12–20; TEMP 36.4–36.9; O2SAT 92–95
[2024-09-11] MEDS: cefEPime HCl/D5W 2 GM/50 ML PIGGYBACK IV ×3 (00:01→15:27)
[2024-09-11] MEDS: 0.9 % Sodium Chloride Flush 3 ML SYRINGE IVFLUSH ×3 (00:04→15:31)
[2024-09-11] MEDS: oxyCODONE HCl Immed Release 5 MG TABLET PO ×5 (06:07→23:26)
[2024-09-11] MEDS: clonazePAM 0.5 MG TABLET PO ×3 (06:12→20:15)
[2024-09-11] MEDS: Docusate Sodium 100 MG CAPSULE PO (07:55)
[2024-09-11] MEDS: Rivastigmine Tartrate 1.5 MG CAPSULE PO ×2 (07:55→20:16)
[2024-09-11] MEDS: Tamsulosin HCL 0.4 MG CAPSULE PO (07:55)
[2024-09-11] MEDS: Celecoxib 200 MG CAPSULE PO (07:55)
[2024-09-11] MEDS: hydrALAZINE HCl 25 MG TABLET PO ×2 (07:56→20:16)
[2024-09-11] MEDS: Aspirin Enteric Coated 81 MG TABLET.DR PO (07:56)
[2024-09-11] MEDS: QUEtiapine Fumarate 25 MG TABLET PO ×2 (07:57→20:16)
[2024-09-11] MEDS: cilostazoL 50 MG TABLET PO ×2 (07:57→20:15)
[2024-09-11] MEDS: Metoprolol Tartrate 12.5 MG HALFTAB PO ×2 (07:57→20:15)
[2024-09-11] MEDS: Furosemide 40 MG TABLET PO (07:58)
[2024-09-11] MEDS: Dronedarone HCl 400 MG TABLET PO ×2 (07:58→20:15)
[2024-09-11] MEDS: Acetaminophen 325 MG TABLET 650 MG PO ×2 (07:59→13:57)
[2024-09-11] MEDS: Apixaban 5 MG TABLET PO ×2 (07:59→20:15)
--- NOTE | 2024-09-11 08:44 | MHC.CLN ---
F/U SEEN BY WOUND RN 09/09. SKIN WITH MASD TO BILATERAL BUTTOCKS. DIET=REGULAR. PO VARIABLE 25-100%. NO ADDITIONAL NUTRITION INTERVENTIONS. NO NUTRITIONAL PROBLEMS AT THIS TIME.
[2024-09-11] MEDS: Doxycycline Hyclate 100 MG in 0.9 % Sodium Chloride 250 ML 166.67 MG IV ×2 (09:50→22:19)
--- NOTE | 2024-09-11 10:38 | HO.PM.IMPN ---
Subjective Subjective Date of Service: 09/11/24 Interval History: pneumonia Review of Systems sob with minimal excersion some cough Review of Systems: Yes all other systems are reviewed and are negative Physical Exam Vital Signs: Vital Signs: Last Vital Signs Temp 98.0 F 09/11/24 08:10 Pulse 65 09/11/24 08:10 Resp 18 09/11/24 08:10 BP 123/58 L 09/11/24 10:22 Pulse Ox 92 09/11/24 10:22 O2 Del Method Room Air 09/11/24 10:22 O2 Flow Rate 1 09/10/24 15:10 BMI result Body Mass Index 31.5 Appearance: Alert.? Oriented X3.sob somewhat similar to yesterday. cvs: rrr, [id number] . res: air entry somewhat dimished at bases. abd: no rebound or guarding ,nt, bs present. ext pulses present , no cyanosis . neuro: axo3 , nonfocal. Objective Data Active Medications Acetaminophen (Acetaminophen 325 Mg Tablet) 650 mg PO Q6H PRN PRN Reason: Pain, Mild 1-3,fever,headache Last Admin: 09/11/24 07:59 Dose: 650 mg Documented By: SHERYL Albuterol Sulfate (Albuterol Sulfate 90 Mcg 8 Gm Inhaler) 2 puff INHALE RQ4H PRN PRN Reason: Shortness Of Breath Or Wheezing Apixaban (Apixaban 5 Mg Tablet) 5 mg PO BID [facility] Last Admin: 09/11/24 07:59 Dose: 5 mg Documented By: SHERYL Aspirin (Aspirin Enteric Coated 81 Mg Tablet.) 81 mg PO DAILY [facility] Last Admin: 09/11/24 07:56 Dose: 81 mg Documented By: SHERYL Benzonatate (Benzonatate 100 Mg Capsule) 100 mg PO TID PRN PRN Reason: Cough Calcium Carbonate (Calcium Carbonate 750 Mg Tab.Chew) 750 mg PO Q4H PRN PRN Reason: Heartburn Celecoxib (Celecoxib 200 Mg Capsule) 200 mg PO DAILY [facility] Last Admin: 09/11/24 07:55 Dose: 200 mg Documented By: SHERYL Cilostazol (Cilostazol 50 Mg Tablet) 50 mg PO BID [facility] Last Admin: 09/11/24 07:57 Dose: 50 mg Documented By: SHERYL Clonazepam (Clonazepam 0.5 Mg Tablet) 0.5 mg PO BID [facility] Last Admin: 09/11/24 06:12 Dose: 0.5 mg Documented By: AMY Comments: okay to give early per Dr. Li Clonazepam (Clonazepam 0.5 Mg Tablet) 0.5 mg PO BEDTIME PRN PRN Reason: Anxiety Last Admin: 09/10/24 20:54 Dose: 0.5 mg Documented By: AMY Docusate Sodium (Docusate Sodium 100 Mg Capsule) 100 mg PO DAILY [facility] Last Admin: 09/11/24 07:55 Dose: 100 mg Documented By: SHERYL Dronedarone (Dronedarone Hcl 400 Mg Tablet) 400 mg PO BID [facility] Last Admin: 09/11/24 07:58 Dose: 400 mg Documented By: SHERYL Furosemide (Furosemide 40 Mg Tablet) 40 mg PO DAILY [facility]; Protocol Last Admin: 09/11/24 07:58 Dose: 40 mg Documented By: SHERYL Gabapentin (Gabapentin 300 Mg Capsule) 300 mg PO BEDTIME [facility] Last Admin: 09/10/24 20:53 Dose: 300 mg Documented By: AMY Guaifenesin (Guaifenesin 100 Mg/5 Ml 5 Ml Liquid) 5 ml PO Q4H PRN PRN Reason: Cough Hydralazine HCl (Hydralazine Hcl 25 Mg Tablet) 25 mg PO BID [facility]; Protocol Last Admin: 09/11/24 07:56 Dose: 25 mg Documented By: SHERYL Doxycycline Hyclate 100 mg/ (Sodium Chloride) 250 mls @ 166.67 mls/hr IV Q12H [facility] Last Admin: 09/11/24 09:50 Dose: 166.67 mls/hr Documented By: ANDRIY Cefepime HCl (Maxipime) 2 gm in 50 mls @ 100 mls/hr IV Q8H [facility] Last Infusion: 09/11/24 08:36 Dose: Infused Documented By: SHERYL Magnesium Hydroxide (Milk Of Magnesia 30 Ml Oral.Susp) 30 ml PO DAILY PRN PRN Reason: Constipation Melatonin (Melatonin 3 Mg Tablet) 3 mg PO BEDTIME PRN PRN Reason: Sleep Metoprolol Tartrate (Metoprolol Tartrate 12.5 Mg Halftab) 12.5 mg PO BID [facility]; Protocol Last Admin: 09/11/24 07:57 Dose: 12.5 mg Documented By: SHERYL Oxycodone HCl (Oxycodone Hcl Immed Release 5 Mg Tablet) 5 mg PO Q4H PRN PRN Reason: Pain, Severe (Pain Scale 7-10) Last Admin: 09/11/24 09:49 Dose: 5 mg Documented By: ANDRIY Polyethylene Glycol (Polyethylene Glycol 3350 17 Gm Powd.Pack) 17 gm PO BEDTIME [facility] Last Admin: 09/10/24 20:57 Dose: Not Given Documented By: AMY Non-Admin Reason: Patient Refused Quetiapine Fumarate (Quetiapine Fumarate 25 Mg Tablet) 25 mg PO BID [facility] Last Admin: 09/11/24 07:57 Dose: 25 mg Documented By: SHERYL Rivastigmine Tartrate (Rivastigmine Tartrate 1.5 Mg Capsule) 1.5 mg PO BID [facility] Last Admin: 09/11/24 07:55 Dose: 1.5 mg Documented By: SHERYL Sodium Chloride (0.9 % Sodium Chloride Flush 3 Ml Syringe) 3 ml IVFLUSH QSHIFT [facility] Last Admin: 09/11/24 08:07 Dose: 3 ml Documented By: SHERYL Tamsulosin HCl (Tamsulosin Hcl 0.4 Mg Capsule) 0.4 mg PO DAILY [facility] Last Admin: 09/11/24 07:55 Dose: 0.4 mg Documented By: SHERYL Labs 09/10/24 09:29 09/10/24 06:10 Microbiology Microbiology Results: Microbiology 09/09/24 07:54 Blood Culture - Preliminary Blood - Venous No growth after 48 hours. 09/09/24 07:40 Blood Culture - Preliminary Blood - Venous No growth after 48 hours. Assessment and Plan (1) PNA (pneumonia): Status: Acute Plan 79-year-old male with past medical history of hypertension, atrial fibrillation on Eliquis, depression/anxiety, obesity, bilateral shoulder repairs, renal carcinoma now cleared and in remission, HFrEF, COPD, neuropathy, chronic kidney disease stage 3, insomnia, chronic pain related to left shoulder, BPH, ascending aortic aneurysm currently 4.1, being hospitalized for acute hypoxic respiratory failure due to recurrent pneumonia Acute hypoxic respiratory failure/left lower lobe pneumonia with sepsis Got vanco and Cefepime, will continue on Cefepime and Doxy 09/09 follow cultures O2 with goal sat 94% IC cough medications pulm eval-ct chest pending for pneumonia eval . Acute lactic acidosis d/t hypoxia, not sepsis, ivf and recheck Chronic HFrEF/, no exacerbation continue home dose of diuretics Permanent Atrial fibrillation on Eliquis continue metoprolol ,eliquis for stroke prevention CKD Stage 3 -renal fx stable, avoid hypotension andnephrotoxic agents Chronic Left shoulder pain tatus post surgery 2 months prior for fracture status post fall patient has stopped PT as became too painful outpatient follow up with ortho MED REC pending DVT prophylaixs: eliquis Regular diet ongoing need for stay:Acute hypoxic respiratory failure/left lower lobe pneumonia with sepsis- taper oxygen, IV antibiotics and pulmonary evaluation Quality Stroke Does the patient have a stroke diagnosis?: No VTE Prior VTE?: No VTE Risk Level:: Medical - moderate - high VTE Device Contraindication: Treatment Not Indicated VTE Drug Contraindication: N/A - Med Ordered
[2024-09-11] MEDS: Benzonatate 100 MG CAPSULE PO (14:18)
--- NOTE | 2024-09-11 14:48 | MHC.CM.PN ---
per rounds pt not medically ready for dc dc plan remains home w/ameydysis
--- NOTE | 2024-09-11 15:25 | P.PNPL_ITS ---
Subjective Subjective Date of Service: 09/11/24 Interval history: Continues with improved respiratory symptoms, now also titrated down to room air. Objective Data Labs 09/10/24 09:29 09/10/24 06:10 Microbiology Microbiology Results: Microbiology 09/09/24 07:54 Blood - Venous Blood Culture - Preliminary No growth after 48 hours. 09/09/24 07:40 Blood - Venous Blood Culture - Preliminary No growth after 48 hours. Physical Exam 2 Vital Signs: Vital Signs: Last Vital Signs Temp 97.6 F 09/11/24 12:49 Pulse 59 09/11/24 12:49 Resp 18 09/11/24 12:49 BP 157/72 H 09/11/24 12:49 Pulse Ox 93 09/11/24 12:49 O2 Del Method Room Air 09/11/24 12:49 O2 Flow Rate 1 09/10/24 15:10 BMI result Body Mass Index 31.5 Const: General: no acute distress, alert and awake Eyes: Sclerae: sclerae normal EOM: EOMs intact bilaterally Neck: Neck: Yes no lymphadenopathy, Yes trachea midline and Yes supple Resp: Effort & Inspection: normal respiratory effort and no respiratory distress Auscultation: clear to auscultation bilaterally Cardio: Rate: regular rate Rhythm: regular rhythm Heart sounds: no gallops, no murmurs and no rubs GI: Palpation (GI): Soft to palpation and Other GI palpation findings present ( Nontender) Auscultation: normal bowel sounds Extrem: General: Yes no pedal edema, No clubbing and No cyanosis Procedures Date of Service Date of Service: 09/11/24 Assessment and Plan Assessment and plan (1) Acute dyspnea: Status: Acute Plan Impression: 79-year-old gentleman with underlying significant cardiac is admitted with recurrent dyspnea and hypoxia and empirically treated for hospital-acquired pneumonia. His chest x-ray's have not significantly changed over the last several weeks. His CT chest shows what appears to be residual findings from prior pneumonia. Now he has been titrated off supplemental oxygen therapy. Recommendation: Does not appear to have a significant pulmonary pathology at this time. Would agree with finishing empiric antibiotic treatment for community-acquired pneumonia. Time Spent With Patient Time: Total time managing care of this patient today ____ minutes. Progress Note: Quality Stroke Does the patient have a stroke diagnosis?: No
[2024-09-11] MEDS: Lidocaine 4 % Patch ADH..PATCH 1 PATCH TRANSDERMA (15:32)
--- NOTE | 2024-09-11 15:32 | HO.PM.IMPN ---
Subjective Subjective Date of Service: 09/11/24 Interval History: pneumonia Review of Systems sob and cough improving Physical Exam Vital Signs: Vital Signs: Last Vital Signs Temp 97.6 F 09/11/24 12:49 Pulse 59 09/11/24 12:49 Resp 18 09/11/24 12:49 BP 157/72 H 09/11/24 12:49 Pulse Ox 93 09/11/24 12:49 O2 Del Method Room Air 09/11/24 12:49 O2 Flow Rate 1 09/10/24 15:10 BMI result Body Mass Index 31.5 Objective Data Active Medications Acetaminophen (Acetaminophen 325 Mg Tablet) 650 mg PO Q6H PRN PRN Reason: Pain, Mild 1-3,fever,headache Last Admin: 09/11/24 13:57 Dose: 650 mg Documented By: ANDRIY Albuterol Sulfate (Albuterol Sulfate 90 Mcg 8 Gm Inhaler) 2 puff INHALE RQ4H PRN PRN Reason: Shortness Of Breath Or Wheezing Apixaban (Apixaban 5 Mg Tablet) 5 mg PO BID [facility] Last Admin: 09/11/24 07:59 Dose: 5 mg Documented By: SHERYL Aspirin (Aspirin Enteric Coated 81 Mg Tablet.) 81 mg PO DAILY [facility] Last Admin: 09/11/24 07:56 Dose: 81 mg Documented By: SHERYL Benzonatate (Benzonatate 100 Mg Capsule) 100 mg PO TID PRN PRN Reason: Cough Last Admin: 09/11/24 14:18 Dose: 100 mg Documented By: SHERYL Calcium Carbonate (Calcium Carbonate 750 Mg Tab.Chew) 750 mg PO Q4H PRN PRN Reason: Heartburn Cilostazol (Cilostazol 50 Mg Tablet) 50 mg PO BID [facility] Last Admin: 09/11/24 07:57 Dose: 50 mg Documented By: SHERYL Clonazepam (Clonazepam 0.5 Mg Tablet) 0.5 mg PO BID [facility] Last Admin: 09/11/24 06:12 Dose: 0.5 mg Documented By: AMY Comments: okay to give early per Dr. Li Clonazepam (Clonazepam 0.5 Mg Tablet) 0.5 mg PO DAILY PRN PRN Reason: Anxiety Last Admin: 09/11/24 14:18 Dose: 0.5 mg Documented By: SHERYL Docusate Sodium (Docusate Sodium 100 Mg Capsule) 100 mg PO DAILY [facility] Last Admin: 09/11/24 07:55 Dose: 100 mg Documented By: SHERYL Dronedarone (Dronedarone Hcl 400 Mg Tablet) 400 mg PO BID [facility] Last Admin: 09/11/24 07:58 Dose: 400 mg Documented By: SHERYL Furosemide (Furosemide 40 Mg Tablet) 40 mg PO DAILY [facility]; Protocol Last Admin: 09/11/24 07:58 Dose: 40 mg Documented By: SHERYL Gabapentin (Gabapentin 300 Mg Capsule) 300 mg PO BEDTIME [facility] Last Admin: 09/10/24 20:53 Dose: 300 mg Documented By: AMY Guaifenesin (Guaifenesin 100 Mg/5 Ml 5 Ml Liquid) 5 ml PO Q4H PRN PRN Reason: Cough Hydralazine HCl (Hydralazine Hcl 25 Mg Tablet) 25 mg PO BID [facility]; Protocol Last Admin: 09/11/24 07:56 Dose: 25 mg Documented By: SHERYL Doxycycline Hyclate 100 mg/ (Sodium Chloride) 250 mls @ 166.67 mls/hr IV Q12H [facility] Last Infusion: 09/11/24 11:42 Dose: Infused Documented By: SHERYL Cefepime HCl (Maxipime) 2 gm in 50 mls @ 100 mls/hr IV Q8H [facility] Last Infusion: 09/11/24 08:36 Dose: Infused Documented By: SHERYL Lidocaine (Lidocaine 4 % Patch Adh..Patch) 1 patch TRANSDERMA DAILY [facility]; Protocol Magnesium Hydroxide (Milk Of Magnesia 30 Ml Oral.Susp) 30 ml PO DAILY PRN PRN Reason: Constipation Melatonin (Melatonin 3 Mg Tablet) 3 mg PO BEDTIME PRN PRN Reason: Sleep Metoprolol Tartrate (Metoprolol Tartrate 12.5 Mg Halftab) 12.5 mg PO BID [facility]; Protocol Last Admin: 09/11/24 07:57 Dose: 12.5 mg Documented By: SHERYL Oxycodone HCl (Oxycodone Hcl Immed Release 5 Mg Tablet) 5 mg PO Q4H PRN PRN Reason: Pain, Severe (Pain Scale 7-10) Last Admin: 09/11/24 13:57 Dose: 5 mg Documented By: ANDRIY Polyethylene Glycol (Polyethylene Glycol 3350 17 Gm Powd.Pack) 17 gm PO BEDTIME [facility] Last Admin: 09/10/24 20:57 Dose: Not Given Documented By: AMY Non-Admin Reason: Patient Refused Quetiapine Fumarate (Quetiapine Fumarate 25 Mg Tablet) 25 mg PO BID [facility] Last Admin: 09/11/24 07:57 Dose: 25 mg Documented By: SHERYL Rivastigmine Tartrate (Rivastigmine Tartrate 1.5 Mg Capsule) 1.5 mg PO BID [facility] Last Admin: 09/11/24 07:55 Dose: 1.5 mg Documented By: SHERYL Sodium Chloride (0.9 % Sodium Chloride Flush 3 Ml Syringe) 3 ml IVFLUSH QSHIFT [facility] Last Admin: 09/11/24 08:07 Dose: 3 ml Documented By: SHERYL Tamsulosin HCl (Tamsulosin Hcl 0.4 Mg Capsule) 0.4 mg PO DAILY [facility] Last Admin: 09/11/24 07:55 Dose: 0.4 mg Documented By: SHERYL Labs 09/10/24 09:29 09/10/24 06:10 Microbiology Microbiology Results: Microbiology 09/09/24 07:54 Blood Culture - Preliminary Blood - Venous No growth after 48 hours. 09/09/24 07:40 Blood Culture - Preliminary Blood - Venous No growth after 48 hours. Quality Stroke Does the patient have a stroke diagnosis?: No VTE Prior VTE?: No VTE Risk Level:: Medical - moderate - high VTE Device Contraindication: Treatment Not Indicated VTE Drug Contraindication: N/A - Med Ordered
[2024-09-11] MEDS: Gabapentin 300 MG CAPSULE PO (20:15)
[2024-09-11] MEDS: Albuterol Sulfate 90 MCG 8 GM INHALER 2 PUFF INHALE (20:43)
--- NOTE | 2024-09-12 | ECG_ITS ---
Test Reason : qtc check Blood Pressure : */* mmHG Vent. Rate : 71 BPM Atrial Rate : 71 BPM P-R Int : 216 ms QRS Dur : 70 ms QT Int : 452 ms P-R-T Axes : 98 -4 6 degrees QTcB Int : 491 ms Sinus rhythm with 1st degree A-V block with Premature atrial complexes Low voltage QRS Septal infarct (cited on or before 27-Aug-2024) Abnormal ECG When compared with ECG of 09-Sep-2024 06:28, Premature atrial complexes are now Present Referred By: Xiomara Steele Electronically Signed By: LATOYA JOHNSON MD
[2024-09-12] MEDS: cefEPime HCl/D5W 2 GM/50 ML PIGGYBACK IV ×3 (00:10→15:48)
[2024-09-12] MEDS: 0.9 % Sodium Chloride Flush 3 ML SYRINGE IVFLUSH ×4 (00:15→20:08)
[2024-09-12 03:07] VITALS: BP 161/72; PULSE 56; RESP 18; TEMP 36.7; O2SAT 93
[2024-09-12] MEDS: oxyCODONE HCl Immed Release 5 MG TABLET PO ×4 (05:45→20:06)
[2024-09-12] MEDS: clonazePAM 0.5 MG TABLET PO ×3 (05:56→20:08)
[2024-09-12 07:20] VITALS: BP 171/77; PULSE 56; RESP 18; TEMP 36.9; O2SAT 95
[2024-09-12] MEDS: Lidocaine 4 % Patch ADH..PATCH 1 PATCH TRANSDERMA (08:04)
[2024-09-12] MEDS: hydrALAZINE HCl 50 MG TABLET PO (08:05)
[2024-09-12] MEDS: Furosemide 40 MG TABLET PO (08:05)
[2024-09-12] MEDS: Docusate Sodium 100 MG CAPSULE PO (08:05)
[2024-09-12] MEDS: Dronedarone HCl 400 MG TABLET PO ×2 (08:05→20:08)
[2024-09-12] MEDS: Apixaban 5 MG TABLET PO ×2 (08:06→20:08)
[2024-09-12] MEDS: Rivastigmine Tartrate 1.5 MG CAPSULE PO ×2 (08:06→20:07)
[2024-09-12] MEDS: cilostazoL 50 MG TABLET PO ×2 (08:06→20:08)
[2024-09-12] MEDS: Aspirin Enteric Coated 81 MG TABLET.DR PO (08:06)
[2024-09-12] MEDS: Tamsulosin HCL 0.4 MG CAPSULE PO (08:06)
[2024-09-12] MEDS: QUEtiapine Fumarate 25 MG TABLET PO (08:08)
--- NOTE | 2024-09-12 08:10 | PC.NURSE ---
BP elevated 171/77 pulse 54,held Metroprolol,Dr. Kraft made aware
[2024-09-12] MEDS: Metoprolol Tartrate 12.5 MG HALFTAB PO ×2 (08:12→20:08)
--- NOTE | 2024-09-12 08:13 | PC.NURSE ---
Addendum entered by Mahsa Osuna RN 09/12/24 08:14: BP elevated 171/[address] Steele made aware Original Note: Metroprolol was administered per request of Dr. Steele
[2024-09-12] MEDS: Doxycycline Monohydrate 100 MG CAPSULE PO ×2 (10:17→20:08)
[2024-09-12 12:00] VITALS: BP 146/67; PULSE 72; RESP 16; TEMP 36.8; O2SAT 96
--- NOTE | 2024-09-12 13:09 | MHC.CM.PN ---
Addendum entered by Ana Cristina Mendoza 09/12/24 16:00: PT MEDICALLY CLEARED TO DC TODAY PT AND S/O, ANTONIO, AWARE THE [facility] WILL RESUME SN, PT AND OT PTS [facility] (MOW AND DIRECTOR OF SCIENTIFIC RESEARCH) WILL ALSO RESUME PTS BROTHER WILL PROVIDE TRANSPORT BETWEEN 1630 AND 1700 HOURS CM WILL CONTACT ANTONIO ONCE A FOLLOW UP PCP APPT CAN BE MADE, TALHA ATTEMPTED X 2, HOWEVER WAS UNABLE TO REACH ANYONE Original Note: TALHA SPOKE TO PTS HCP, ANTONIO, WHO REPORTS THE PT WILL BE ALONE IF HE GOES HOME TODAY SHE SAYS HIS BROTHER IS IN [place] FOR THE DAY SHE REPORTS THE PT WILL NEED [facility] TO BE CHECKING IN, SHE IS AWARE HE WILL RESUME [facility] AND WILL NO HAVE PT AND SN SHE ALSO REPORTS HE HAS MOW AND A DIRECTOR OF SCIENTIFIC RESEARCH FROM [facility] SHE SAYS SHE IS WORRIED ABOUT PT NOT GETTING PROPER F/U CARE BECAUSE THEY WERE TRYING TO CALL THE PCP SCAN COORDINATOR AND COULD NOT GET A RETURN CALL SHE ALSO STATES SHE IS WORRIED THAT PROVIDERS WILL NOT KNOW ABOUT PTS VASCULAR DEMENTIA DX SHE REPORTS HE WAS JUST DIAGNOSED [address] PITT IN [place] CM ATTEMPTED TO CALL PTS PCP OFFICE TO MAKE A FOLLOW UP APPT, HOWEVER THE WAIT TIME WAS TOO LONG CM WILL ATTEMPT TO CALL AGAIN LATER TODAY
--- NOTE | 2024-09-12 14:05 | PM.CNOR ---
History of Present Illness HPI Consult date: 09/12/24 Chief complaint: Dyspnea, hypoxia Narrative: Patient is a 79-year-old male admitted to the hospital for dyspnea and hypoxia Complaining of left shoulder pain Of note, patient is status post left open reduction and Bankart lesion repair of the left shoulder with Dr. Kothari, DOS 06/21/2024 The patient reports that the pain he is experiencing is his baseline since surgery, has had no acute increase in pain or change in symptoms Patient denies any increase in swelling, any redness, or acute injury No other acute complaints or concerns at this time Review of Systems Review of Systems: Yes all other systems are reviewed and are negative PMFSH Past Medical History Medical History Paroxysmal atrial flutter Preoperative cardiovascular examination Coronary artery disease Hypersomnia Snoring Neuropathy Atherosclerotic cardiovascular disease History of alcohol abuse History of COVID-19 On beta jose at home COPD (chronic obstructive pulmonary disease) On anticoagulant therapy History of atrial fibrillation PVD (peripheral vascular disease) Renal cell carcinoma Hypertension Depression Anxiety Diverticulitis Surgical History Surgical History History of intestinal surgery History of kidney surgery H/O cardiac catheterization History of colectomy S/P femoral-femoral bypass surgery Social History Social History Household Members: Other Household Members Other:: girlfriend Housing: House Are you a primary home health care respiratory therapist to a significant other at home: No Do you presently have visiting nurse or other home services: Yes Alcohol intake: never Patient Tobacco Use Status: Former Tobacco user Tobacco use type: Cigarette Smoked in Last 30 Days: No Second Hand Smoke Exposure: No Use of substances other than those prescribed or required for medical reasons: No Substance Use Type: Marijuana Currently Displaying Signs/Symptoms of Drug Intoxication Withdrawal: No Have you been hit, kicked, punched, or otherwise hurt by someone within the past year? If so, by whom?: No Do you feel safe in your current relationship?: Yes Is there a partner from a previous relationship who is making you feel unsafe now?: No Are you made to feel afraid or neglected: No [facility] Practices: adventist Advance Directives: Yes Advance Directives on File: Yes Advance Directives Date on File: 06/09/21 Do you have a plan to hurt others: No Plan Recently lost weight without trying: No Nutrition Risks: No Nutritional Risk service: No Current occupational status: retired Current occupation: right hand dominant Meds Allergies Allergy/AdvReac Type Severity Reaction Status Date / Time No Known Allergies Allergy Verified 09/09/24 05:51 [No Known Allergies*] Active Medications: Current Medications Acetaminophen (Acetaminophen 325 Mg Tablet) 650 mg PO Q6H PRN PRN Reason: Pain, Mild 1-3,fever,headache Last Admin: 09/11/24 13:57 Dose: 650 mg Albuterol Sulfate (Albuterol Sulfate 90 Mcg 8 Gm Inhaler) 2 puff INHALE RQ4H PRN PRN Reason: Shortness Of Breath Or Wheezing Last Admin: 09/11/24 20:43 Dose: 2 puff Apixaban (Apixaban 5 Mg Tablet) 5 mg PO BID COUNT INCLUDES [facility] Last Admin: 09/12/24 08:06 Dose: 5 mg Aspirin (Aspirin Enteric Coated 81 Mg Tablet.) 81 mg PO DAILY COUNT [facility]CLUDES [facility] Last Admin: 09/12/24 08:06 Dose: 81 mg Benzonatate (Benzonatate 100 Mg Capsule) 100 mg PO TID PRN PRN Reason: Cough Last Admin: 09/11/24 14:18 Dose: 100 mg Calcium Carbonate (Calcium Carbonate 750 Mg Tab.Chew) 750 mg PO Q4H PRN PRN Reason: Heartburn Cilostazol (Cilostazol 50 Mg Tablet) 50 mg PO BID COUNT INCLUDES [facility] Last Admin: 09/12/24 08:06 Dose: 50 mg Clonazepam (Clonazepam 0.5 Mg Tablet) 0.5 mg PO BID COUNT [facility]CLUDES [facility] Last Admin: 09/12/24 08:06 Dose: 0.5 mg Clonazepam (Clonazepam 0.5 Mg Tablet) 0.5 mg PO DAILY PRN PRN Reason: Anxiety Last Admin: 09/12/24 05:56 Dose: 0.5 mg Docusate Sodium (Docusate Sodium 100 Mg Capsule) 100 mg PO DAILY COUNT [facility]CLUDES [facility] Last Admin: 09/12/24 08:05 Dose: 100 mg Doxycycline Monohydrate (Doxycycline Monohydrate 100 Mg Capsule) 100 mg PO Q12H COUNT [facility]CLUDES [facility] Last Admin: 09/12/24 10:17 Dose: 100 mg Dronedarone (Dronedarone Hcl 400 Mg Tablet) 400 mg PO BID COUNT [facility]CLUDES [facility] Last Admin: 09/12/24 08:05 Dose: 400 mg Furosemide (Furosemide 40 Mg Tablet) 40 mg PO DAILY COUNT [facility]CLUDES [facility]; Protocol Last Admin: 09/12/24 08:05 Dose: 40 mg Gabapentin (Gabapentin 300 Mg Capsule) 300 mg PO BEDTIME [facility] Last Admin: 09/11/24 20:15 Dose: 300 mg Guaifenesin (Guaifenesin 100 Mg/5 Ml 5 Ml Liquid) 5 ml PO Q4H PRN PRN Reason: Cough Hydralazine HCl (Hydralazine Hcl 50 Mg Tablet) 50 mg PO DAILY COUNT [facility]CLUD[facility]; Protocol Last Admin: 09/12/24 08:05 Dose: 50 mg Hydralazine HCl (Hydralazine Hcl 25 Mg Tablet) 25 mg PO BEDTIME COUNT [facility]CLUDES [facility]; Protocol Cefepime HCl (Maxipime) 2 gm in 50 mls @ 100 mls/hr IV Q8H COUNT [facility]CLUDES [facility] Last Infusion: 09/12/24 08:39 Dose: Infused Lidocaine (Lidocaine 4 % Patch Adh..Patch) 1 patch TRANSDERMA DAILY COUNT [facility]CLUDES [facility]; Protocol Last Admin: 09/12/24 08:04 Dose: 1 patch Magnesium Hydroxide (Milk Of Magnesia 30 Ml Oral.Susp) 30 ml PO DAILY PRN PRN Reason: Constipation Melatonin (Melatonin 3 Mg Tablet) 3 mg PO BEDTIME PRN PRN Reason: Sleep Metoprolol Tartrate (Metoprolol Tartrate 12.5 Mg Halftab) 12.5 mg PO BID COUNT [facility]CLUD[facility]; Protocol Last Admin: 09/12/24 08:12 Dose: 12.5 mg Oxycodone HCl (Oxycodone Hcl Immed Release 5 Mg Tablet) 5 mg PO Q4H PRN PRN Reason: Pain, Severe (Pain Scale 7-10) Last Admin: 09/12/24 10:34 Dose: 5 mg Polyethylene Glycol (Polyethylene Glycol 3350 17 Gm Powd.Pack) 17 gm PO BEDTIME [facility] Last Admin: 09/11/24 20:28 Dose: Not Given Quetiapine Fumarate (Quetiapine Fumarate 25 Mg Tablet) 25 mg PO BID COUNT [facility]CLUDES [facility] Last Admin: 09/12/24 08:08 Dose: 25 mg Rivastigmine Tartrate (Rivastigmine Tartrate 1.5 Mg Capsule) 1.5 mg PO BID COUNT [facility]CLUDES [facility] Last Admin: 09/12/24 08:06 Dose: 1.5 mg Sodium Chloride (0.9 % Sodium Chloride Flush 3 Ml Syringe) 3 ml IVFLUSH QSHIFT COUNT INCLUDES [facility] Last Admin: 09/12/24 07:57 Dose: 3 ml Tamsulosin HCl (Tamsulosin Hcl 0.4 Mg Capsule) 0.4 mg PO DAILY COUNT [facility]CLUDES [facility] Last Admin: 09/12/24 08:06 Dose: 0.4 mg Home Medications ?Medication ?Instructions ?Recorded ?Confirmed ?Last Taken ?Type docusate sodium 100 mg capsule 100 mg PO DAILY 08/17/21 09/09/24 09/09/24 History apixaban 5 mg tablet (Eliquis) 5 mg PO BID 01/27/22 09/09/24 09/09/24 History atorvastatin 80 mg tablet 80 mg PO DAILY 01/27/22 09/09/24 09/09/24 History sertraline 50 mg tablet 50 mg PO DAILY 07/06/22 09/09/24 09/09/24 History quetiapine 25 mg tablet 25 mg PO BID 12/28/22 09/09/24 09/09/24 History tamsulosin 0.4 mg capsule 0.4 mg PO DAILY 03/07/23 09/09/24 09/09/24 History cilostazol 50 mg tablet 50 mg PO BID 03/27/23 09/09/24 09/09/24 History clonazepam 0.5 mg tablet 0.5 mg PO BID Anxiety 11/15/23 09/09/24 09/09/24 History dextroamphetamine-amphetamine 7.5 1 tab PO DAILY 03/18/24 09/09/24 09/09/24 History mg tablet melatonin 3 mg capsule 3 mg PO BEDTIME PRN Sleep 04/12/24 09/09/24 Unknown History aspirin 81 mg tablet,delayed 81 mg PO DAILY 07/11/24 09/09/24 09/09/24 History release metoprolol tartrate 25 mg tablet 12.5 mg PO BID 07/11/24 09/09/24 09/09/24 History gabapentin 100 mg capsule 300 mg PO BEDTIME Pain (Scale 08/21/24 09/09/24 09/08/24 History Score 1-3) albuterol sulfate 90 mcg/actuation 2 puff inhalation Q4H PRN 09/09/24 09/09/24 Unknown History aerosol inhaler (Ventolin HFA) Shortness Of Breath Or Wheezing oxycodone 5 mg tablet 5 mg PO Q6H PRN pain 09/09/24 09/09/24 Unknown History rivastigmine tartrate 1.5 mg 1.5 mg PO BID 09/09/24 09/09/24 09/09/24 History capsule Physical Exam Vital Signs: Vital Signs: Last Vital Signs Temp 98.2 F 09/12/24 12:00 Pulse 72 09/12/24 12:00 Resp 16 09/12/24 12:00 BP 146/67 H 09/12/24 12:00 Pulse Ox 96 09/12/24 12:00 O2 Del Method Room Air 09/12/24 12:00 O2 Flow Rate 1 09/10/24 15:10 BMI result Body Mass Index 31.5 Extrem: Other: Patient's left shoulder normal to inspection No erythema, ecchymosis, edema noted No lacerations, abrasions, open areas No evidence of infection Patient reports no tenderness to palpation of the acromion, clavicle, greater tuberosity, or elsewhere on the left shoulder Patient is able to forward flex the shoulder to approximately 90 degrees without difficulty External rotation to approximately 15 degrees Distal sensation intact Capillary refill brisk Results Labs 09/10/24 09:29 09/10/24 06:10 Labs: H & H 09/09/24 09/10/24 Range/Units 06:26 09:29 Hgb 14.3 11.9 L (14.0-18.0) g/dl Hct 43.0 35.5 L (42.0-52.0) % All other labs normal. Diagnostic results Shoulder x-ray: report reviewed and image reviewed Assessment and Plan (1) Closed left scapular fracture: Status: Acute (2) Glenoid fracture of shoulder: Status: Acute (3) Dislocation of left glenohumeral joint: Status: Acute (4) Shoulder pain, left: Qualifiers: Chronicity: acute Qualified Code(s): M25.512 - Pain in left shoulder Status: Acute Plan 1. Left shoulder pain Status post Bankart repair and open reduction on 06/21/[address] Kothari X-rays show no acute process, only degenerative changes and postoperative changes No acute orthopedic intervention indicated Follow-up outpatient in our office Continue working with physical therapy outpatient Continue with all other recommendations per Medicine Procedures Date of Service Date of Service: 09/12/24
--- NOTE | 2024-09-12 15:28 | P.F2F_ITS ---
Service Date Service Date: 09/12/24 Encounter Date of encounter: 09/12/24 Encounter: pneumonia Reasons for Services Signs and symptoms assessed: sob or cough Reason for retirement: CV/CP assess and/or care, medication management, medication treatment and teach disease management Reason for physical therapy: home safety and mobility, therapeutic exercises, restore joint function, gait/transfer training, assess need for DME, ADL training, energy conservation and other MD Overseeing Care: Sesar Pereyra Homebound: Leaving the home is medically contraindicated at this time without the asist of a device and/or another person due th the listed conditions above and below. Reason homebound: weakness related to hospital stay Homebound supporting statement: Patient is generalised weak post hospitlisation and need help with going to appointments and labs draws as well as PT. Certification: Based on the above findings, I certify that this patient is confined to the home and needs intermittent retirement care, physical therapy and/or speech therapy, or continues to need occupational therapy. The patient is under my care, and I have initiated the establishment of the plan of care. The patient will be followed by a physician who will periodically review the plan of care. Time Spent With Patient Time: Total time managing care of this patient today ____ minutes.
[2024-09-12 15:32] VITALS: BP 149/68; PULSE 69; RESP 16; TEMP 36.7; O2SAT 94
--- NOTE | 2024-09-12 16:20 | P.CNPS_ITS ---
History of Present Illness Date of Service: 09/12/24 Chief Complaint: Dyspnea, hypoxia Reason for Consult: To discuss patient's anxiety Requesting physician: Xiomara Steele Sources of Information: patient interviewed, chart reviewed and crisis/core team assessment reviewed HPI Narrative: Patient is a 79-year-old male with history of CAD, proximal AFib/flutter on Eliquis, CKD 3, HLD, HTN, BPH and anxiety with several recent admissions who presented to the medical floor for treatment for pneumonia. Psychiatry consulted to assess patient's medications for treatment for anxiety. Patient reports that he used to see his psychiatrist who has him on current medication regimen; however patient's psychiatrist retired 4 months ago and his PCP is now prescribing the same regimen. Patient feels that this regimen is helpful in treating his anxiety and wants to continue with it. He agrees that he should get another psychiatrist to help manage his medications and would like a referral. Patient asks if these other right medications for him to be on. Physical Sciences Instructor explained that if he and his psychiatrist came up with this medication regimen and patient finds it effective than it seems to be working for him. Patient agrees with this. Past Psychiatric History: Has worked with outpatient psychiatrist for several years Medical Evaluation Reviewed: Yes [facility] Medical History (Updated 09/14/24 @ 09:27 by Franko Sandoval MD) Paroxysmal atrial flutter Preoperative cardiovascular examination Coronary artery disease Hypersomnia Snoring Neuropathy Atherosclerotic cardiovascular disease History of alcohol abuse History of COVID-19 On beta jose at home COPD (chronic obstructive pulmonary disease) On anticoagulant therapy History of atrial fibrillation PVD (peripheral vascular disease) Renal cell carcinoma Hypertension Depression Anxiety Diverticulitis Surgical History History of intestinal surgery History of kidney surgery H/O cardiac catheterization History of colectomy S/P femoral-femoral bypass surgery Diagnostics Vital Signs (24Hr): Vital Signs - 24 hr 09/11/24 17:24 09/11/24 19:36 09/11/24 20:40 Temperature 98.4 F Pulse Rate 61 62 Respiratory Rate 18 18 Blood Pressure 176/77 H Pulse Oximetry 95 95 Oxygen Delivery Method Room Air Room Air 09/11/24 22:59 09/12/24 03:07 09/12/24 07:20 Temperature 98.5 F 98.1 F 98.4 F Pulse Rate 64 56 56 Respiratory Rate 20 18 18 Blood Pressure 130/63 161/72 H 171/77 H Pulse Oximetry 94 93 95 Oxygen Delivery Method Room Air Room Air Room Air 09/12/24 12:00 09/12/24 15:32 Temperature 98.2 F 98.1 F Pulse Rate 72 69 Respiratory Rate 16 16 Blood Pressure 146/67 H 149/68 H Pulse Oximetry 96 94 Oxygen Delivery Method Room Air Room Air BMI result Body Mass Index 31.5 Labs 09/10/24 09:29 09/12/24 18:22 Imaging Radiology Impressions: ITS Impressions Chest CT 09/10/24 18:50 IMPRESSION: 1. Moderate emphysema. Bilateral lower lobe pneumonia. Follow-up is recommended, to document resolution. 2. Cardiomegaly. Dilatation of the ascending thoracic aorta measuring up to 4.7 cm in diameter. Electronically signed by: Anuj Hendrickson MD 09/11/2024 10:43 AM EDT Shoulder X-Ray 09/12/24 12:26 IMPRESSION: 1. No acute finding of the left shoulder on these 2 limited views. 2. At least moderate and likely severe degenerative arthritis of the glenohumeral joint. 3. Calcification in the region of the teres minor tendon on the Y-view, possibly on the basis of loose body. Electronically signed by: Jaquan Guillen MD 09/12/2024 01:16 PM EDT RP Mental Status Exam Mental Status Exam Narrative: Pt is alert and oriented; behavior is cooperative, friendly and calm; patient is not in distress; dressed in hospital attire, unkempt; mood is described as anxious and affect congruent; eye contact appropriate; Speech is normal rate, volume and prosody and not pressured; thought process is organized and goal directed; Thought content is on tx; otherwise pertinent to relevant topics and without any delusional content, paranoid ideations or grandiosity; no mention of SI/HI/AVH. Patients insight and judgment adequate Medications Medications Current Medications Acetaminophen (Acetaminophen 325 Mg Tablet) 650 mg PO Q6H PRN PRN Reason: Pain, Mild 1-3,fever,headache Last Admin: 09/11/24 13:57 Dose: 650 mg Albuterol Sulfate (Albuterol Sulfate 90 Mcg 8 Gm Inhaler) 2 puff INHALE RQ4H PRN PRN Reason: Shortness Of Breath Or Wheezing Last Admin: 09/11/24 20:43 Dose: 2 puff Apixaban (Apixaban 5 Mg Tablet) 5 mg PO BID [facility] Last Admin: 09/12/24 08:06 Dose: 5 mg Aspirin (Aspirin Enteric Coated 81 Mg Tablet.Dr) 81 mg PO DAILY [facility] Last Admin: 09/12/24 08:06 Dose: 81 mg Benzonatate (Benzonatate 100 Mg Capsule) 100 mg PO TID PRN PRN Reason: Cough Last Admin: 09/11/24 14:18 Dose: 100 mg Calcium Carbonate (Calcium Carbonate 750 Mg Tab.Chew) 750 mg PO Q4H PRN PRN Reason: Heartburn Cilostazol (Cilostazol 50 Mg Tablet) 50 mg PO BID [facility] Last Admin: 09/12/24 08:06 Dose: 50 mg Clonazepam (Clonazepam 0.5 Mg Tablet) 0.5 mg PO BID [facility] Last Admin: 09/12/24 08:06 Dose: 0.5 mg Clonazepam (Clonazepam 0.5 Mg Tablet) 0.5 mg PO DAILY PRN PRN Reason: Anxiety Last Admin: 09/12/24 05:56 Dose: 0.5 mg Docusate Sodium (Docusate Sodium 100 Mg Capsule) 100 mg PO DAILY [facility] Last Admin: 09/12/24 08:05 Dose: 100 mg Doxycycline Monohydrate (Doxycycline Monohydrate 100 Mg Capsule) 100 mg PO Q12H [facility] Last Admin: 09/12/24 10:17 Dose: 100 mg Dronedarone (Dronedarone Hcl 400 Mg Tablet) 400 mg PO BID [facility] Last Admin: 09/12/24 08:05 Dose: 400 mg Furosemide (Furosemide 40 Mg Tablet) 40 mg PO DAILY [facility]; Protocol Last Admin: 09/12/24 08:05 Dose: 40 mg Gabapentin (Gabapentin 300 Mg Capsule) 300 mg PO BEDTIME [facility] Last Admin: 09/11/24 20:15 Dose: 300 mg Guaifenesin (Guaifenesin 100 Mg/5 Ml 5 Ml Liquid) 5 ml PO Q4H PRN PRN Reason: Cough Hydralazine HCl (Hydralazine Hcl 50 Mg Tablet) 50 mg PO DAILY [facility]; Protocol Last Admin: 09/12/24 08:05 Dose: 50 mg Hydralazine HCl (Hydralazine Hcl 25 Mg Tablet) 25 mg PO BEDTIME [facility]; Protocol Cefepime HCl (Maxipime) 2 gm in 50 mls @ 100 mls/hr IV Q8H [facility] Last Admin: 09/12/24 15:48 Dose: 100 mls/hr Lidocaine (Lidocaine 4 % Patch Adh..Patch) 1 patch TRANSDERMA DAILY [facility]; Protocol Last Admin: 09/12/24 08:04 Dose: 1 patch Magnesium Hydroxide (Milk Of Magnesia 30 Ml Oral.Susp) 30 ml PO DAILY PRN PRN Reason: Constipation Melatonin (Melatonin 3 Mg Tablet) 3 mg PO BEDTIME PRN PRN Reason: Sleep Metoprolol Tartrate (Metoprolol Tartrate 12.5 Mg Halftab) 12.5 mg PO BID [facility]; Protocol Last Admin: 09/12/24 08:12 Dose: 12.5 mg Oxycodone HCl (Oxycodone Hcl Immed Release 5 Mg Tablet) 5 mg PO Q4H PRN PRN Reason: Pain, Severe (Pain Scale 7-10) Last Admin: 09/12/24 16:00 Dose: 5 mg Polyethylene Glycol (Polyethylene Glycol 3350 17 Gm Powd.Pack) 17 gm PO BEDTIME [facility] Last Admin: 09/11/24 20:28 Dose: Not Given Quetiapine Fumarate (Quetiapine Fumarate 25 Mg Tablet) 25 mg PO BID [facility] Last Admin: 09/12/24 08:08 Dose: 25 mg Rivastigmine Tartrate (Rivastigmine Tartrate 1.5 Mg Capsule) 1.5 mg PO BID [facility] Last Admin: 09/12/24 08:06 Dose: 1.5 mg Sodium Chloride (0.9 % Sodium Chloride Flush 3 Ml Syringe) 3 ml IVFLUSH QSHIFT [facility] Last Admin: 09/12/24 15:48 Dose: 3 ml Tamsulosin HCl (Tamsulosin Hcl 0.4 Mg Capsule) 0.4 mg PO DAILY [facility] Last Admin: 09/12/24 08:06 Dose: 0.4 mg Allergies Allergies Allergy/AdvReac Type Severity Reaction Status Date / Time No Known Allergies Allergy Verified 09/09/24 05:51 [No Known Allergies*] Assessment & Plan Assessment & Plan (1) Anxiety: Status: Acute Code(s): F41.9 - Anxiety disorder, unspecified (2) CHF (congestive heart failure): Status: Acute Code(s): I50.9 - Heart failure, unspecified (3) Paroxysmal atrial fibrillation: Status: Acute Code(s): I48.0 - Paroxysmal atrial fibrillation (4) Hypertension: Qualifiers: Hypertension type: unspecified Qualified Code(s): I10 - Essential (primary) hypertension Status: Acute Code(s): I10 - Essential (primary) hypertension (5) PNA (pneumonia): Qualifiers: Aspiration pneumonia type: unspecified Laterality: left Lung location: unspecified part of lung Status: Acute Code(s): J18.9 - Pneumonia, unspecified organism Plan Patient is a 79-year-old male with history of CAD, proximal AFib/flutter on Eliquis, CKD 3, HLD, HTN, BPH and anxiety with several recent admissions who presented to the medical floor for treatment for pneumonia. Psychiatry consulted to assess patient's medications for treatment for anxiety. Patient reports that he used to see his psychiatrist who has him on current medication regimen; however patient's psychiatrist retired 4 months ago and his PCP is now prescribing the same regimen. Patient feels that this regimen is helpful in treating his anxiety and wants to continue with it. He agrees that he should get another psychiatrist to help manage his medications and would like a referral. Patient asks if these other right medications for him to be on. Physical Sciences Instructor explained that if he and his psychiatrist came up with this medication regimen and patient finds it effective than it seems to be working for him. Patient agrees with this. Impression: At this time patient feels that his current medication regimen for anxiety is effective and he does not want to change it. Patient should get referral for outpatient psychiatric provider Please reach out to Psychiatry with any further questions Total time managing care of this patient today ____ minutes. Patient educated on: diagnosis and medication risk/benefits Informed Consent: understands
--- NOTE | 2024-09-12 17:22 | ECG_ITS ---
Test Reason : QT CHECK Blood Pressure : */* mmHG Vent. Rate : 71 BPM Atrial Rate : * BPM P-R Int : * ms QRS Dur : 88 ms QT Int : 482 ms P-R-T Axes : * -1 45 degrees QTcB Int : 523 ms Normal sinus rhythm with Premature atrial complexes Premature ventricular complexes Low voltage QRS Septal infarct (cited on or before 27-Aug-2024) Prolonged QT Abnormal ECG When compared with ECG of 12-Sep-2024 17:22, Nonspecific T wave abnormality, worse in Inferior leads Referred By: Xiomara Steele Electronically Signed By: LATOYA JOHNSON MD
--- NOTE | 2024-09-12 17:51 | P.PNIM_ITS ---
Subjective Subjective Date of Service: 09/12/24 Interval History: qtc prolonged Review of Systems denies any chest pain or sob Review of Systems: Yes all other systems are reviewed and are negative Physical Exam 2 Vital Signs: Vital Signs: Last Vital Signs Temp 98.1 F 09/12/24 15:32 Pulse 69 09/12/24 15:32 Resp 16 09/12/24 15:32 BP 149/68 H 09/12/24 15:32 Pulse Ox 94 09/12/24 15:32 O2 Del Method Room Air 09/12/24 15:32 O2 Flow Rate 1 09/10/24 15:10 BMI result Body Mass Index 31.5 Appearance: Alert.? Oriented X3.sob somewhat similar to yesterday. cvs: rrr, [id number] . res: air entry somewhat dimished at bases. abd: no rebound or guarding ,nt, bs present. ext pulses present , no cyanosis . neuro: axo3 , nonfocal. Objective Data Active Medications Acetaminophen (Acetaminophen 325 Mg Tablet) 650 mg PO Q6H PRN PRN Reason: Pain, Mild 1-3,fever,headache Last Admin: 09/11/24 13:57 Dose: 650 mg Documented By: ANDRIY Albuterol Sulfate (Albuterol Sulfate 90 Mcg 8 Gm Inhaler) 2 puff INHALE RQ4H PRN PRN Reason: Shortness Of Breath Or Wheezing Last Admin: 09/11/24 20:43 Dose: 2 puff Documented By: SISSY Apixaban (Apixaban 5 Mg Tablet) 5 mg PO BID [facility] Last Admin: 09/12/24 08:06 Dose: 5 mg Documented By: ANGELA Aspirin (Aspirin Enteric Coated 81 Mg Tablet.) 81 mg PO DAILY [facility] Last Admin: 09/12/24 08:06 Dose: 81 mg Documented By: ANGELA Benzonatate (Benzonatate 100 Mg Capsule) 100 mg PO TID PRN PRN Reason: Cough Last Admin: 09/11/24 14:18 Dose: 100 mg Documented By: SHERYL Calcium Carbonate (Calcium Carbonate 750 Mg Tab.Chew) 750 mg PO Q4H PRN PRN Reason: Heartburn Cefuroxime Axetil (Cefuroxime Axetil 500 Mg Tablet) 500 mg PO Q12H [facility] Cilostazol (Cilostazol 50 Mg Tablet) 50 mg PO BID [facility] Last Admin: 09/12/24 08:06 Dose: 50 mg Documented By: ANGELA Clonazepam (Clonazepam 0.5 Mg Tablet) 0.5 mg PO BID [facility] Last Admin: 09/12/24 08:06 Dose: 0.5 mg Documented By: ANGELA Clonazepam (Clonazepam 0.5 Mg Tablet) 0.5 mg PO DAILY PRN PRN Reason: Anxiety Last Admin: 09/12/24 05:56 Dose: 0.5 mg Documented By: MOISES Docusate Sodium (Docusate Sodium 100 Mg Capsule) 100 mg PO DAILY [facility] Last Admin: 09/12/24 08:05 Dose: 100 mg Documented By: ANGELA Doxycycline Monohydrate (Doxycycline Monohydrate 100 Mg Capsule) 100 mg PO Q12H [facility] Last Admin: 09/12/24 10:17 Dose: 100 mg Documented By: ANGELA Dronedarone (Dronedarone Hcl 400 Mg Tablet) 400 mg PO BID [facility] Last Admin: 09/12/24 08:05 Dose: 400 mg Documented By: ANGELA Furosemide (Furosemide 40 Mg Tablet) 40 mg PO DAILY [facility]; Protocol Last Admin: 09/12/24 08:05 Dose: 40 mg Documented By: ANGELA Gabapentin (Gabapentin 300 Mg Capsule) 300 mg PO BEDTIME [facility] Last Admin: 09/11/24 20:15 Dose: 300 mg Documented By: AMY Guaifenesin (Guaifenesin 100 Mg/5 Ml 5 Ml Liquid) 5 ml PO Q4H PRN PRN Reason: Cough Hydralazine HCl (Hydralazine Hcl 50 Mg Tablet) 50 mg PO DAILY [facility]; Protocol Last Admin: 09/12/24 08:05 Dose: 50 mg Documented By: ANGELA Hydralazine HCl (Hydralazine Hcl 25 Mg Tablet) 25 mg PO BEDTIME [facility]; Protocol Lidocaine (Lidocaine 4 % Patch Adh..Patch) 1 patch TRANSDERMA DAILY [facility]; Protocol Last Admin: 09/12/24 08:04 Dose: 1 patch Documented By: ANGELA Magnesium Hydroxide (Milk Of Magnesia 30 Ml Oral.Susp) 30 ml PO DAILY PRN PRN Reason: Constipation Melatonin (Melatonin 3 Mg Tablet) 3 mg PO BEDTIME PRN PRN Reason: Sleep Metoprolol Tartrate (Metoprolol Tartrate 12.5 Mg Halftab) 12.5 mg PO BID [facility]; Protocol Last Admin: 09/12/24 08:07 Dose: Not Given Documented By: ANGELA Non-Admin Reason: HR 54 Oxycodone HCl (Oxycodone Hcl Immed Release 5 Mg Tablet) 5 mg PO Q4H PRN PRN Reason: Pain, Severe (Pain Scale 7-10) Last Admin: 09/12/24 16:00 Dose: 5 mg Documented By: JUAN Polyethylene Glycol (Polyethylene Glycol 3350 17 Gm Powd.Pack) 17 gm PO BEDTIME [facility] Last Admin: 09/11/24 20:28 Dose: Not Given Documented By: AMY Non-Admin Reason: Patient Refused Quetiapine Fumarate (Quetiapine Fumarate 25 Mg Tablet) 25 mg PO BID [facility] Last Admin: 09/12/24 08:08 Dose: 25 mg Documented By: ANGELA Rivastigmine Tartrate (Rivastigmine Tartrate 1.5 Mg Capsule) 1.5 mg PO BID [facility] Last Admin: 09/12/24 08:06 Dose: 1.5 mg Documented By: ANGELA Sodium Chloride (0.9 % Sodium Chloride Flush 3 Ml Syringe) 3 ml IVFLUSH QSHIFT [facility] Last Admin: 09/12/24 15:48 Dose: 3 ml Documented By: JUAN Tamsulosin HCl (Tamsulosin Hcl 0.4 Mg Capsule) 0.4 mg PO DAILY [facility] Last Admin: 09/12/24 08:06 Dose: 0.4 mg Documented By: ANGELA Labs 09/10/24 09:29 09/10/24 06:10 Assessment and Plan (1) PNA (pneumonia): Status: Acute Plan 79-year-old male with past medical history of hypertension, atrial fibrillation on Eliquis, depression/anxiety, obesity, bilateral shoulder repairs, renal carcinoma now cleared and in remission, HFrEF, COPD, neuropathy, chronic kidney disease stage 3, insomnia, chronic pain related to left shoulder, BPH, ascending aortic aneurysm currently 4.1, being hospitalized for acute hypoxic respiratory failure due to recurrent pneumonia Acute hypoxic respiratory failure/left lower lobe pneumonia with sepsis Got vanco and Cefepime, will continue on Cefepime and Doxy 09/09 follow cultures O2 with goal sat 94% IC cough medications pulm eval-ct chest -shows pneumonia qtc prolonged -his hcp/patient concerns ekg shows prolongation qtc aorund 520 range will hold seroquel check bmp cardiology eval Acute lactic acidosis d/t hypoxia, not sepsis, ivf and recheck Chronic HFrEF/, no exacerbation continue home dose of diuretics Permanent Atrial fibrillation on Eliquis continue metoprolol ,eliquis for stroke prevention CKD Stage 3-renal fx stable, avoid hypotension andnephrotoxic agents Chronic Left shoulder pain tatus post surgery 2 months prior for fracture status post fall patient has stopped PT as became too painful outpatient follow up with ortho DVT prophylaixs: eliquis Regular diet ongoing need for stay:Acute hypoxic respiratory failure/left lower lobe pneumonia with sepsis- taper oxygen, IV antibiotics and pulmonary evaluation Quality Stroke Does the patient have a stroke diagnosis?: No VTE Prior VTE?: No VTE Risk Level:: Medical - moderate - high VTE Device Contraindication: Treatment Not Indicated VTE Drug Contraindication: N/A - Med Ordered
[2024-09-12] MEDS: cefuroxime axetiL 500 MG TABLET PO (18:13)
[2024-09-12 18:46] LABS: Anion Gap 14 (12-20); Blood Urea Nitrogen 17 mg/dL (9-16); Calcium 8.7 mg/dL (8.4-10.2); Carbon Dioxide 23 mmol/L (22-29); Chloride 110 mmol/L (96-108); Creatinine Clr Calc Pharmacy 69.2; Estimated Glomerular Filt Rate > 60; Glucose Random 88 mg/dL (60-115); Magnesium 1.7 mg/dL (1.6-2.6); Potassium 3.9 mmol/L (3.3-5.1); Sodium 143 mmol/L (135-145)
[2024-09-12 19:40] VITALS: BP 165/71; PULSE 62; RESP 18; TEMP 36.6; O2SAT 95
[2024-09-12] MEDS: Gabapentin 300 MG CAPSULE PO (20:08)
[2024-09-12] MEDS: hydrALAZINE HCl 25 MG TABLET PO (20:08)
[2024-09-12 21:55] VITALS: BP 143/67; PULSE 67; RESP 20; TEMP 36.6; O2SAT 94
[2024-09-13] VITALS (10 sets, daily range): BP systolic 110–182; BP diastolic 57–79; PULSE 59–90; RESP 18–20; TEMP 36.2–37.7; O2SAT 93–95
--- NOTE | 2024-09-13 | ECG_ITS ---
Test Reason : Qtc Blood Pressure : */* mmHG Vent. Rate : 59 BPM Atrial Rate : 59 BPM P-R Int : 112 ms QRS Dur : 92 ms QT Int : 562 ms P-R-T Axes : -39 -9 26 degrees QTcB Int : 556 ms Normal sinus rhythm with Premature atrial complexes Anterior infarct (cited on or before 27-Aug-2024) Prolonged QT Abnormal ECG When compared with ECG of 12-Sep-2024 17:22, Questionable change in initial forces of Anterior leads Referred By: Xiomara Steele Electronically Signed By: LATOYA JOHNSON MD
[2024-09-13] MEDS: oxyCODONE HCl Immed Release 5 MG TABLET PO ×5 (05:14→20:48)
[2024-09-13] MEDS: cefuroxime axetiL 500 MG TABLET PO ×2 (05:14→16:59)
[2024-09-13] MEDS: Magnesium Sulfate/D5W 1 GM/100 ML PIGGYBACK IV (08:12)
[2024-09-13] MEDS: Rivastigmine Tartrate 1.5 MG CAPSULE PO ×2 (08:13→20:47)
[2024-09-13] MEDS: Apixaban 5 MG TABLET PO ×2 (08:13→20:47)
[2024-09-13] MEDS: clonazePAM 0.5 MG TABLET PO ×3 (08:13→20:47)
[2024-09-13] MEDS: Metoprolol Tartrate 12.5 MG HALFTAB PO ×2 (08:13→20:47)
[2024-09-13] MEDS: hydrALAZINE HCl 50 MG TABLET PO (08:13)
[2024-09-13] MEDS: Potassium Chloride ER 10 MEQ TABLET.ER PO (08:13)
[2024-09-13] MEDS: Furosemide 40 MG TABLET PO (08:13)
[2024-09-13] MEDS: Dronedarone HCl 400 MG TABLET PO ×2 (08:13→20:47)
[2024-09-13] MEDS: Aspirin Enteric Coated 81 MG TABLET.DR PO (08:13)
[2024-09-13] MEDS: Docusate Sodium 100 MG CAPSULE PO (08:13)
[2024-09-13] MEDS: Tamsulosin HCL 0.4 MG CAPSULE PO (08:13)
[2024-09-13] MEDS: Magnesium Oxide 400 MG TABLET 800 MG PO (08:14)
[2024-09-13] MEDS: cilostazoL 50 MG TABLET PO ×2 (08:15→20:47)
[2024-09-13] MEDS: Lidocaine 4 % Patch ADH..PATCH 1 PATCH TRANSDERMA (08:18)
[2024-09-13] MEDS: Doxycycline Monohydrate 100 MG CAPSULE PO ×2 (09:17→20:47)
--- NOTE | 2024-09-13 14:46 | HO.PM.IMPN ---
Subjective Subjective Date of Service: 09/13/24 Interval History: dizziness Review of Systems feels lightheadness no chest pain Review of Systems: Yes all other systems are reviewed and are negative Physical Exam Vital Signs: Vital Signs: Last Vital Signs Temp 98.2 F 09/13/24 11:27 Pulse 90 09/13/24 14:10 Resp 18 09/13/24 11:27 BP 110/57 L 09/13/24 14:10 Pulse Ox 95 09/13/24 11:27 O2 Del Method Room Air 09/13/24 11:27 O2 Flow Rate 1 09/10/24 15:10 BMI result Body Mass Index 31.5 Appearance: Alert.? Oriented X3.feels lightheaded cvs: rrr, [id number] . res: air entry fair . abd: no rebound or guarding ,nt, bs present. ext pulses present , no cyanosis . neuro: axo3 , nonfocal. Objective Data Active Medications Acetaminophen (Acetaminophen 325 Mg Tablet) 650 mg PO Q6H PRN PRN Reason: Pain, Mild 1-3,fever,headache Last Admin: 09/11/24 13:57 Dose: 650 mg Documented By: ANDRIY Albuterol Sulfate (Albuterol Sulfate 90 Mcg 8 Gm Inhaler) 2 puff INHALE RQ4H PRN PRN Reason: Shortness Of Breath Or Wheezing Last Admin: 09/11/24 20:43 Dose: 2 puff Documented By: SISSY Apixaban (Apixaban 5 Mg Tablet) 5 mg PO BID [facility] Last Admin: 09/13/24 08:13 Dose: 5 mg Documented By: MARIANNA Aspirin (Aspirin Enteric Coated 81 Mg Tablet.) 81 mg PO DAILY [facility] Last Admin: 09/13/24 08:13 Dose: 81 mg Documented By: MARIANNA Benzonatate (Benzonatate 100 Mg Capsule) 100 mg PO TID PRN PRN Reason: Cough Last Admin: 09/11/24 14:18 Dose: 100 mg Documented By: SHERYL Calcium Carbonate (Calcium Carbonate 750 Mg Tab.Chew) 750 mg PO Q4H PRN PRN Reason: Heartburn Cefuroxime Axetil (Cefuroxime Axetil 500 Mg Tablet) 500 mg PO Q12H [facility] Last Admin: 09/13/24 05:14 Dose: 500 mg Documented By: HO.LYSZ Cilostazol (Cilostazol 50 Mg Tablet) 50 mg PO BID [facility] Last Admin: 09/13/24 08:15 Dose: 50 mg Documented By: MARIANNA Clonazepam (Clonazepam 0.5 Mg Tablet) 0.5 mg PO BID [facility] Last Admin: 09/13/24 08:13 Dose: 0.5 mg Documented By: MARIANNA Clonazepam (Clonazepam 0.5 Mg Tablet) 0.5 mg PO DAILY PRN PRN Reason: Anxiety Last Admin: 09/13/24 12:55 Dose: 0.5 mg Documented By: ANDRIY Docusate Sodium (Docusate Sodium 100 Mg Capsule) 100 mg PO DAILY [facility] Last Admin: 09/13/24 08:13 Dose: 100 mg Documented By: MARIANNA Doxycycline Monohydrate (Doxycycline Monohydrate 100 Mg Capsule) 100 mg PO Q12H [facility] Last Admin: 09/13/24 09:17 Dose: 100 mg Documented By: MARIANNA Dronedarone (Dronedarone Hcl 400 Mg Tablet) 400 mg PO BID [facility] Last Admin: 09/13/24 08:13 Dose: 400 mg Documented By: MARIANNA Furosemide (Furosemide 40 Mg Tablet) 40 mg PO DAILY [facility]; Protocol Last Admin: 09/13/24 08:13 Dose: 40 mg Documented By: MARIANNA Gabapentin (Gabapentin 300 Mg Capsule) 300 mg PO BEDTIME [facility] Last Admin: 09/12/24 20:08 Dose: 300 mg Documented By: BESSIE Guaifenesin (Guaifenesin 100 Mg/5 Ml 5 Ml Liquid) 5 ml PO Q4H PRN PRN Reason: Cough Hydralazine HCl (Hydralazine Hcl 25 Mg Tablet) 25 mg PO BEDTIME [facility]; Protocol Last Admin: 09/12/24 20:08 Dose: 25 mg Documented By: BESSIE Hydralazine HCl (Hydralazine Hcl 25 Mg Tablet) 25 mg PO BID [facility]; Protocol Sodium Chloride (Ns) 500 mls @ 100 mls/hr IVCONT .Q5H [facility] Lidocaine (Lidocaine 4 % Patch Adh..Patch) 1 patch TRANSDERMA DAILY [facility]; Protocol Last Admin: 09/13/24 08:18 Dose: 1 patch Documented By: MARIANNA Magnesium Hydroxide (Milk Of Magnesia 30 Ml Oral.Susp) 30 ml PO DAILY PRN PRN Reason: Constipation Magnesium Oxide (Magnesium Oxide 400 Mg Tablet) 800 mg PO DAILY [facility] Last Admin: 09/13/24 08:14 Dose: 800 mg Documented By: MARIANNA Melatonin (Melatonin 3 Mg Tablet) 3 mg PO BEDTIME PRN PRN Reason: Sleep Metoprolol Tartrate (Metoprolol Tartrate 12.5 Mg Halftab) 12.5 mg PO BID [facility]; Protocol Last Admin: 09/13/24 08:13 Dose: 12.5 mg Documented By: MARIANNA Oxycodone HCl (Oxycodone Hcl Immed Release 5 Mg Tablet) 5 mg PO Q4H PRN PRN Reason: Pain, Severe (Pain Scale 7-10) Last Admin: 09/13/24 12:55 Dose: 5 mg Documented By: ANDRIY Polyethylene Glycol (Polyethylene Glycol 3350 17 Gm Powd.Pack) 17 gm PO BEDTIME [facility] Last Admin: 09/12/24 20:09 Dose: Not Given Documented By: BESSIE Non-Admin Reason: Patient Refused Rivastigmine Tartrate (Rivastigmine Tartrate 1.5 Mg Capsule) 1.5 mg PO BID [facility] Last Admin: 09/13/24 08:13 Dose: 1.5 mg Documented By: MARIANNA Sodium Chloride (0.9 % Sodium Chloride Flush 3 Ml Syringe) 3 ml IVFLUSH QSHIFT [facility] Last Admin: 09/13/24 11:19 Dose: Not Given Documented By: MARIANNA Non-Admin Reason: Previously Administered Tamsulosin HCl (Tamsulosin Hcl 0.4 Mg Capsule) 0.4 mg PO DAILY [facility] Last Admin: 09/13/24 08:13 Dose: 0.4 mg Documented By: MARIANNA Labs 09/10/24 09:29 09/12/24 18:22 Labs: Laboratory Results - last 24 hr 09/12/24 18:22 Anion Gap 14 Estim Creat Clear Calc 69.2 Estimated GFR > 60 Random Glucose 88 Calcium 8.7 D Magnesium 1.7 Assessment and Plan (1) PNA (pneumonia): Status: Acute Plan 79-year-old male with past medical history of hypertension, atrial fibrillation on Eliquis, depression/anxiety, obesity, bilateral shoulder repairs, renal carcinoma now cleared and in remission, HFrEF, COPD, neuropathy, chronic kidney disease stage 3, insomnia, chronic pain related to left shoulder, BPH, ascending aortic aneurysm currently 4.1, being hospitalized for acute hypoxic respiratory failure due to recurrent pneumonia Acute hypoxic respiratory failure/left lower lobe pneumonia with sepsis Got vanco and Cefepime, will continue on Cefepime and Doxy 09/09 follow cultures O2 with goal sat 94% IC cough medications pulm eval-ct chest -shows pneumonia. lightheaded -relative orthostasis -lkely due to meds hold lasix and hydralazine for today added ivf 500 ml moniter orthostasis. qtc prolonged -his hcp/patient concerns ekg shows prolongation qtc aorund 520 range d/w psych Dr Sandoval-will stop seroquel, continue klonapin. cardiology eval Acute lactic acidosis d/t hypoxia, not sepsis, ivf and recheck Chronic HFrEF/, no exacerbation continue home dose of diuretics Permanent Atrial fibrillation on Eliquis continue metoprolol ,eliquis for stroke prevention CKD Stage 3-renal fx stable, avoid hypotension andnephrotoxic agents Chronic Left shoulder pain tatus post surgery 2 months prior for fracture status post fall patient has stopped PT as became too painful outpatient follow up with ortho DVT prophylaixs: eliquis Regular diet ongoing need for stay:lightheadness ,dehydration -need ivf ,also tele monitering ,qt prolongation Quality Stroke Does the patient have a stroke diagnosis?: No VTE Prior VTE?: No VTE Risk Level:: Medical - moderate - high VTE Device Contraindication: Treatment Not Indicated VTE Drug Contraindication: N/A - Med Ordered
--- NOTE | 2024-09-13 15:12 | PM.CNCAR ---
History of Present Illness History of Present Illness Date of Service: 09/13/24 Requesting physician: Xiomara Steele Consult reason: other (Abnormal EKG) Chief complaint: Dyspnea, hypoxia Narrative: I was consulted to see Alex in cardiology consultation today for noted QT prolongation EKG. EKGs was performed as a part of his general workup. There was concern raised by family member as per the hospitalist team. He is currently on few QT prolongation drugs including among them Multaq as well as Seroquel. Patient has significant anxiety disorder. Patient also has history of atrial fibrillation has done well on Multaq therapy. He has not had recurrent SVT which was difficult control . Also on oral anticoagulation therapy with apixaban. No cardiac symptoms except for today he said after having a meal he felt lightheaded. He was then laid back and said he felt better. He has had significant syncopal episodes due to orthostasis in the past although does complain of orthostatic lightheadedness. After my visit orthostatics were check and he did have a drop in blood pressure about 15 mm Hg. He has no chest pain, shortness of breath, orthopnea, PND. Review of Systems Constitutional: Constitutional: Reports other (Anxiety) Eyes: Eyes: Reports no additional eye complaints Cardiovascular: Cardiovascular: Denies chest pain with activity, Denies leg edema, Reports lightheadedness, Denies palpitations and Denies dyspnea on exertion Respiratory: Respiratory: Reports no additional respiratory complaints and Denies dyspnea on exertion Genitourinary: Genitourinary: Reports no additional male genitourinary complaints Musculoskeletal: Musculoskeletal: Reports no additional musculoskeletal complaints Neurologic: Reports system reviewed and no additional complaints, except as documented Psychiatric: Psychiatric: Reports no additional psychiatric complaints Endocrine: Endocrine: Denies palpitations PMFSH Past Medical History Medical History Paroxysmal atrial flutter Preoperative cardiovascular examination Coronary artery disease Hypersomnia Snoring Neuropathy Atherosclerotic cardiovascular disease History of alcohol abuse History of COVID-19 On beta jose at home COPD (chronic obstructive pulmonary disease) On anticoagulant therapy History of atrial fibrillation PVD (peripheral vascular disease) Renal cell carcinoma Hypertension Depression Anxiety Diverticulitis Surgical History Surgical History History of intestinal surgery History of kidney surgery H/O cardiac catheterization History of colectomy S/P femoral-femoral bypass surgery Social History Social History Household Members: Other Household Members Other:: girlfriend Housing: House Are you a primary health care legal assistant to a significant other at home: No Do you presently have visiting nurse or other home services: Yes Alcohol intake: never Patient Tobacco Use Status: Former Tobacco user Tobacco use type: Cigarette Second Hand Smoke Exposure: No Substance Use Type: Marijuana Advance Directives Date on File: 06/09/21 service: No Current occupational status: retired Current occupation: right hand dominant Meds Allergies Allergy/AdvReac Type Severity Reaction Status Date / Time No Known Allergies Allergy Verified 09/09/24 05:51 [No Known Allergies*] Active Medications: Current Medications Acetaminophen (Acetaminophen 325 Mg Tablet) 650 mg PO Q6H PRN PRN Reason: Pain, Mild 1-3,fever,headache Last Admin: 09/11/24 13:57 Dose: 650 mg Albuterol Sulfate (Albuterol Sulfate 90 Mcg 8 Gm Inhaler) 2 puff INHALE RQ4H PRN PRN Reason: Shortness Of Breath Or Wheezing Last Admin: 09/11/24 20:43 Dose: 2 puff Apixaban (Apixaban 5 Mg Tablet) 5 mg PO BID [facility] Last Admin: 09/13/24 08:13 Dose: 5 mg Aspirin (Aspirin Enteric Coated 81 Mg Tablet.Dr) 81 mg PO DAILY [facility] Last Admin: 09/13/24 08:13 Dose: 81 mg Benzonatate (Benzonatate 100 Mg Capsule) 100 mg PO TID PRN PRN Reason: Cough Last Admin: 09/11/24 14:18 Dose: 100 mg Calcium Carbonate (Calcium Carbonate 750 Mg Tab.Chew) 750 mg PO Q4H PRN PRN Reason: Heartburn Cefuroxime Axetil (Cefuroxime Axetil 500 Mg Tablet) 500 mg PO Q12H [facility] Last Admin: 09/13/24 05:14 Dose: 500 mg Cilostazol (Cilostazol 50 Mg Tablet) 50 mg PO BID [facility] Last Admin: 09/13/24 08:15 Dose: 50 mg Clonazepam (Clonazepam 0.5 Mg Tablet) 0.5 mg PO BID [facility] Last Admin: 09/13/24 08:13 Dose: 0.5 mg Clonazepam (Clonazepam 0.5 Mg Tablet) 0.5 mg PO DAILY PRN PRN Reason: Anxiety Last Admin: 09/13/24 12:55 Dose: 0.5 mg Docusate Sodium (Docusate Sodium 100 Mg Capsule) 100 mg PO DAILY [facility] Last Admin: 09/13/24 08:13 Dose: 100 mg Doxycycline Monohydrate (Doxycycline Monohydrate 100 Mg Capsule) 100 mg PO Q12H [facility] Last Admin: 09/13/24 09:17 Dose: 100 mg Dronedarone (Dronedarone Hcl 400 Mg Tablet) 400 mg PO BID [facility] Last Admin: 09/13/24 08:13 Dose: 400 mg Furosemide (Furosemide 40 Mg Tablet) 40 mg PO DAILY [facility]; Protocol Last Admin: 09/13/24 08:13 Dose: 40 mg Gabapentin (Gabapentin 300 Mg Capsule) 300 mg PO BEDTIME [facility] Last Admin: 09/12/24 20:08 Dose: 300 mg Guaifenesin (Guaifenesin 100 Mg/5 Ml 5 Ml Liquid) 5 ml PO Q4H PRN PRN Reason: Cough Hydralazine HCl (Hydralazine Hcl 25 Mg Tablet) 25 mg PO BID [facility]; Protocol Sodium Chloride (Ns) 500 mls @ 100 mls/hr IVCONT .Q5H [facility] Lidocaine (Lidocaine 4 % Patch Adh..Patch) 1 patch TRANSDERMA DAILY [facility]; Protocol Last Admin: 09/13/24 08:18 Dose: 1 patch Magnesium Hydroxide (Milk Of Magnesia 30 Ml Oral.Susp) 30 ml PO DAILY PRN PRN Reason: Constipation Magnesium Oxide (Magnesium Oxide 400 Mg Tablet) 800 mg PO DAILY [facility] Last Admin: 09/13/24 08:14 Dose: 800 mg Melatonin (Melatonin 3 Mg Tablet) 3 mg PO BEDTIME PRN PRN Reason: Sleep Metoprolol Tartrate (Metoprolol Tartrate 12.5 Mg Halftab) 12.5 mg PO BID [facility]; Protocol Last Admin: 09/13/24 08:13 Dose: 12.5 mg Oxycodone HCl (Oxycodone Hcl Immed Release 5 Mg Tablet) 5 mg PO Q4H PRN PRN Reason: Pain, Severe (Pain Scale 7-10) Last Admin: 09/13/24 12:55 Dose: 5 mg Polyethylene Glycol (Polyethylene Glycol 3350 17 Gm Powd.Pack) 17 gm PO BEDTIME [facility] Last Admin: 09/12/24 20:09 Dose: Not Given Rivastigmine Tartrate (Rivastigmine Tartrate 1.5 Mg Capsule) 1.5 mg PO BID [facility] Last Admin: 09/13/24 08:13 Dose: 1.5 mg Sodium Chloride (0.9 % Sodium Chloride Flush 3 Ml Syringe) 3 ml IVFLUSH QSHIFT [facility] Last Admin: 09/13/24 11:19 Dose: Not Given Tamsulosin HCl (Tamsulosin Hcl 0.4 Mg Capsule) 0.4 mg PO DAILY [facility] Last Admin: 09/13/24 08:13 Dose: 0.4 mg Home Medications ?Medication ?Instructions ?Recorded ?Confirmed ?Last Taken ?Type docusate sodium 100 mg capsule 100 mg PO DAILY 08/17/21 09/09/24 09/09/24 History apixaban 5 mg tablet (Eliquis) 5 mg PO BID 01/27/22 09/09/24 09/09/24 History atorvastatin 80 mg tablet 80 mg PO DAILY 01/27/22 09/09/24 09/09/24 History sertraline 50 mg tablet 50 mg PO DAILY 07/06/22 09/09/24 09/09/24 History quetiapine 25 mg tablet 25 mg PO BID 12/28/22 09/09/24 09/09/24 History tamsulosin 0.4 mg capsule 0.4 mg PO DAILY 03/07/23 09/09/24 09/09/24 History cilostazol 50 mg tablet 50 mg PO BID 03/27/23 09/09/24 09/09/24 History clonazepam 0.5 mg tablet 0.5 mg PO BID Anxiety 11/15/23 09/09/24 09/09/24 History dextroamphetamine-amphetamine 7.5 1 tab PO DAILY 03/18/24 09/09/24 09/09/24 History mg tablet melatonin 3 mg capsule 3 mg PO BEDTIME PRN Sleep 04/12/24 09/09/24 Unknown History aspirin 81 mg tablet,delayed 81 mg PO DAILY 07/11/24 09/09/24 09/09/24 History release metoprolol tartrate 25 mg tablet 12.5 mg PO BID 07/11/24 09/09/24 09/09/24 History gabapentin 100 mg capsule 300 mg PO BEDTIME Pain (Scale 08/21/24 09/09/24 09/08/24 History Score 1-3) albuterol sulfate 90 mcg/actuation 2 puff inhalation Q4H PRN 09/09/24 09/09/24 Unknown History aerosol inhaler (Ventolin HFA) Shortness Of Breath Or Wheezing oxycodone 5 mg tablet 5 mg PO Q6H PRN pain 09/09/24 09/09/24 Unknown History rivastigmine tartrate 1.5 mg 1.5 mg PO BID 09/09/24 09/09/24 09/09/24 History capsule Physical Exam Vital Signs: Vital Signs: Last Vital Signs Temp 98.2 F 09/13/24 11:27 Pulse 90 09/13/24 14:10 Resp 18 09/13/24 11:27 BP 110/57 L 09/13/24 14:10 Pulse Ox 95 09/13/24 11:27 O2 Del Method Room Air 09/13/24 11:27 O2 Flow Rate 1 09/10/24 15:10 BMI result Body Mass Index 31.5 Const: General: cooperative, comfortable, alert, awake and anxious Nutritional Appearance: overweight Orientation/consciousness: patient oriented x3 HEENT: Head: Yes normocephalic and Yes atraumatic Neck: Neck: Yes trachea midline, Yes supple and Yes no JVD Resp: Effort & Inspection: normal respiratory effort Auscultation: clear to auscultation bilaterally Cardio: Jugular venous distension: no JVD Rate: regular rate Rhythm: regular rhythm Heart sounds: S1 normal heart sound present, S2 normal heart sound present, no click, no gallops and no murmurs GI: Auscultation: normal bowel sounds Skin: General skin exam: no rashes or lesions noted Neuro: General: patient oriented x3 and no focal motor deficits Extrem: General: Yes no clubbing, cyanosis or edema Objective Labs and Meds 09/10/24 09:29 09/12/24 18:22 Lab results: Laboratory Results - last 24 hr 09/12/24 18:22 Sodium 143 Potassium 3.9 Chloride 110 H Carbon Dioxide 23 Anion Gap 14 BUN 17 H Creatinine 1.12 Estim Creat Clear Calc 69.2 Estimated GFR > 60 Random Glucose 88 Calcium 8.7 D Magnesium 1.7 Assessment and Plan (1) Cardiac arrhythmia: Status: Acute Patient with prior history of atrial fibrillation but more history of difficult control SVT which has remained controlled on Multaq therapy. He has derived significant benefit from Multaq therapy. Would like to continue it if other QT prolonging medications can be withheld. Continue anticoagulation as above. (2) QT prolongation: Status: Acute QT prolongation in this elderly gentleman which is asymptomatic at this point time. He is on multiple QT prolonging agents including Multaq. If that is the only medication that. In discontinued I think we pursue that otherwise I would continue with Multaq therapy. Continue to maintain potassium above 4 and magnesium above 2. If Seroquel has been discontinued I will repeat EKG in about weeks' time to assess for QT interval. (3) Orthostatic lightheadedness: Status: Acute History of orthostatic syncope and injury. Continues to have symptoms of orthostatic lightheadedness after meal. Advise small frequent meals. Orthostatic precautions discussed. Continue maintain adequate hydration. Agree with discontinuing Lasix as no clear history of CHF. Will sign of the case. Thank you for allowing me to partake in his care Procedures Date of Service Date of Service: 09/13/24
[2024-09-13] MEDS: 0.9 % Sodium Chloride 500 ML 100 ML IVCONT (15:40)
--- NOTE | 2024-09-13 15:48 | MHC.CM.PN ---
per rounds pt is not medically ready for dc pt needs chelo be seen by psych and cardio prior to dc
[2024-09-13] MEDS: Albumin Human 25 % 100 ML IV (17:58)
[2024-09-13] MEDS: Gabapentin 300 MG CAPSULE PO (20:47)
[2024-09-13] MEDS: hydrALAZINE HCl 25 MG TABLET PO (20:47)
[2024-09-13] MEDS: 0.9 % Sodium Chloride Flush 3 ML SYRINGE IVFLUSH (20:49)
[2024-09-13] MEDS: Melatonin 3 MG TABLET PO (22:59)
[2024-09-14] VITALS (10 sets, daily range): BP systolic 143–188; BP diastolic 65–78; PULSE 54–77; RESP 14–18; TEMP 36.3–36.5; O2SAT 92–95
[2024-09-14] MEDS: cefuroxime axetiL 500 MG TABLET PO ×2 (06:06→14:50)
[2024-09-14] MEDS: oxyCODONE HCl Immed Release 5 MG TABLET PO ×2 (06:20→11:43)
[2024-09-14] MEDS: Aspirin Enteric Coated 81 MG TABLET.DR PO (08:33)
[2024-09-14] MEDS: Doxycycline Monohydrate 100 MG CAPSULE PO (08:33)
[2024-09-14] MEDS: cilostazoL 50 MG TABLET PO (08:33)
[2024-09-14] MEDS: Dronedarone HCl 400 MG TABLET PO (08:33)
[2024-09-14] MEDS: Docusate Sodium 100 MG CAPSULE PO (08:34)
[2024-09-14] MEDS: hydrALAZINE HCl 25 MG TABLET PO (08:34)
[2024-09-14] MEDS: Apixaban 5 MG TABLET PO (08:34)
[2024-09-14] MEDS: Tamsulosin HCL 0.4 MG CAPSULE PO (08:34)
[2024-09-14] MEDS: Magnesium Oxide 400 MG TABLET 800 MG PO (08:34)
[2024-09-14] MEDS: clonazePAM 0.5 MG TABLET PO (08:34)
[2024-09-14] MEDS: Metoprolol Tartrate 12.5 MG HALFTAB PO (08:34)
[2024-09-14] MEDS: Rivastigmine Tartrate 1.5 MG CAPSULE PO (08:34)
[2024-09-14] MEDS: 0.9 % Sodium Chloride Flush 3 ML SYRINGE IVFLUSH (08:35)
[2024-09-14] MEDS: Lidocaine 4 % Patch ADH..PATCH 1 PATCH TRANSDERMA (08:35)
[2024-09-14 12:55] LABS: Anion Gap 13 (12-20); Blood Urea Nitrogen 16 mg/dL (9-16); Calcium 9.4 mg/dL (8.4-10.2); Carbon Dioxide 28 mmol/L (22-29); Chloride 105 mmol/L (96-108); Creatinine Clr Calc Pharmacy 78.3; Estimated Glomerular Filt Rate > 60; Glucose Random 91 mg/dL (60-115); Magnesium 2.3 mg/dL (1.6-2.6); Potassium 3.9 mmol/L (3.3-5.1); Sodium 142 mmol/L (135-145)
--- NOTE | 2024-09-14 14:00 | P.DS_ITS ---
DS: Providers Provider Date of Service: 09/14/24 Date of admission: 09/09/24 08:49 Date of discharge: 09/14/24 Primary care physician: Sesar Pereyra MD Consults: 09/09/24 11:17 Consult to Wound Care Routine Reason for consultation: redness, open areas bilateral buttocks Has provider been notified: No 09/10/24 10:47 Consult to Pulmonology Routine Consulting Provider: [facility] [place] Pulmonology Services Reason for consultation: recuurent pneumonia Has provider been notified: No 09/11/24 14:05 Consult to Psychiatry Routine Consulting Provider: [facility] [place] Psych Covering Reason for consultation: severe anxiety Has provider been notified: No 09/12/24 11:53 Consult to Orthopedics Routine Consulting Provider: [facility] [place] [facility] Surgeons Reason for consultation: left shoulder fx. 09/12/24 17:50 Consult to Cardiology Routine Consulting Provider: [facility] [place] [facility] Reason for consultation: qtc prolonged -? multaq /seroquel interaction Has provider been notified: No Attending physician on discharge: Xiomara Steele Discharging clinician: Xiomara Steele DS: Diagnosis Discharge Diagnosis (1) Anxiety: Status: Acute (2) CHF (congestive heart failure): Status: Acute (3) Paroxysmal atrial fibrillation: Status: Acute (4) Hypertension: Status: Acute (5) PNA (pneumonia): Status: Acute DS: Summary Hospital Course Hospital Course: HPI:79-year-old male with a PMH significant for?CAD, paroxysmal AFib/flutter Eliquis, CKD 3, HLD, HTN, BPH, and mood disorder , in addition per hcp ( possible vascular demetia recently )-most recent hospitalization was from 08/26 and discharge on 08/29 with diagnoses of Pneumonia and discharged with Augmentin. He relates that he felt better after completing antibiotics but over the last several days have been having increasing shortness of breath, cough with clear sputum production. He reports no fever or chills. He was found EMS to have O2 of 87% on room air and went up to 93%with 10 L by NRB. WBC is 17K, Lactic acid 2.2. BNP is 131, CXR shows left basilar pneumonia, ECG no acute ischemic changes. Flu/RSV and covid negative. He's given IV Vanco and Cefepime and is being Hospital course:Patient was admitted for pneumonia: His symptoms including shortness of breath seems to be improved significantly, now patient is at baseline, walking fine, sats are stable in room air. Chest CT repeated as per Pulmonary: Moderate emphysema. Bilateral lower lobe pneumonia. Pulmonary Recommended to continue antibiotics total 7 days ,patient will be going home per with p.o. Ceftin and doxycycline for 5 more days( already received rest of antibiotics in hospital). Concern about medication interaction: So celecoxib stopped. In addition currently patient is saying that his anxiety medications are helping him so wants to continue that, was recommended to follow-up with psych program([facility] pillowcase folder will call for outpatient program ). psych recomended to stop seroquel since small dose( concern for seroquel and multaq interaction) .given extra klonapin 0.5 mg prn limited supply. patient anxiety-seems more calmer and earger to go home. above is dicussed with psych provider Dr salcedo . qtc prolongation:QT prolongation in this elderly gentleman which is asymptomatic at this point time. He is on multiple QT prolonging agents including Multaq. If that is the only medication that. In discontinued I think we pursue that otherwise I would continue with Multaq therapy. electrolytes seems better. since Seroquel has been discontinued , cardiology receomneded repeat EKG in about weeks' time to assess for QT interval. dehydration-likely causing relative orthostasis: seen by cardio-received ivf , Agree with discontinuing Lasix as no clear history of CHF. relative boderline Orthostasis changes possibly related to dehydration and Lasix: Improved with hydration, Patient is off Lasix, currently asymptomatic. Patient was strongly encouraged for p.o. intake and hydration, Discussed orthostatic precautions. plan: Complete p.o. Ceftin 500 mg p.o. b.i.d. for 5 days as well as p.o. doxycycline 100 mg p.o. b.i.d. for 5 days. Repeat chest imaging in 3-4 week. Outpatient to see resolution of pneumonia. potassium 10 meq daily for 1 week and magnesium 800 mg daily for 1 week. onsider check renal function and elctrolytes outpatient. Patient was also encouraged for p.o. intake and hydration, orthostasis precautions . stopped seroquel and celecoxcib . patient hcp will d/w cilasatazol use with pcp. Patient is to follow-up with his PCP and outpatient psychiatry, and Cardiology outpatient and cardiology receomneded repeat EKG in about weeks' time to assess for QT interval. As per the patient 's healthcare proxy she is in process with case management to reach out to PCP for appointment. Patient was also strongly advised to follow up with [facility] program for Psychiatry outpatient(pillowcase folder psych miss Moore will arrange). Patient is to also follow-up with orthopedics outpatient for his recent left shoulder surgery, shoulder xray done and reviewed by ortho no acute intervention recommended. Patient is to follow-up with PCP, Cardiology, psych, orthopedic outpatient. Above management discussed with the patient and his healthcare proxy miss in detail length-they both understand and in agreement with the above plan, time spent 40 minute. All question answered. Time Attestation Total time managing care of this patient today: 40 mintues. Discharge Coordination Time (in mins): 40 min Quality: Safe Use of Opioids Does Pt have an Active Cancer Diagnosis on the Problem List?: No Quality: Stroke Does the patient have a stroke diagnosis?: No Physical Exam Vital Signs: Vital Signs: Last Vital Signs Temp 97.4 F 09/14/24 11:34 Pulse 73 09/14/24 13:52 Resp 18 09/14/24 11:34 BP 167/72 H 09/14/24 13:52 Pulse Ox 95 09/14/24 11:34 O2 Del Method Room Air 09/14/24 11:34 O2 Flow Rate 1 09/10/24 15:10 BMI result Body Mass Index 31.5 Appearance: Alert.? Oriented X3.feels lightheaded cvs: rrr, [id number] . res: air entry fair . abd: no rebound or guarding ,nt, bs present. ext pulses present , no cyanosis . neuro: axo3 , nonfocal. DS: Data Data Completed and Pending Completed studies during hospitalization [Text1]: Procedures Introduction of Anesthetic Agent into Peripheral Nerves and Plexi, Percutaneous Approach (06/19/24) Reattachment of Left Shoulder Tendon, Percutaneous Endoscopic Approach (06/19/24) Reposition Left Shoulder Joint, External Approach (06/19/24) Labs on day of discharge: Laboratory Results - last 24 hr 09/14/24 12:16 Sodium 142 Potassium 3.9 Chloride 105 Carbon Dioxide 28 Anion Gap 13 BUN 16 Creatinine 0.99 Estim Creat Clear Calc 78.3 Estimated GFR > 60 Random Glucose 91 Calcium 9.4 D Magnesium 2.3 Imaging Chest x-ray: Radiologist's impression: ITS Impressions Chest CT 09/10/24 18:50 IMPRESSION: 1. Moderate emphysema. Bilateral lower lobe pneumonia. Follow-up is recommended, to document resolution. 2. Cardiomegaly. Dilatation of the ascending thoracic aorta measuring up to 4.7 cm in diameter. Electronically signed by: Anuj Hendrickson MD 09/11/2024 10:43 AM EDT RP Shoulder X-Ray 09/12/24 12:26 IMPRESSION: 1. No acute finding of the left shoulder on these 2 limited views. 2. At least moderate and likely severe degenerative arthritis of the glenohumeral joint. 3. Calcification in the region of the teres minor tendon on the Y-view, possibly on the basis of loose body. Electronically signed by: Jaquan Guillen MD 09/12/2024 01:16 PM EDT Discharge Plan Discharge Anticipated Discharge Date/Time: 09/12/24 16:58 Patient Disposition: Home Health Service Discharge Diagnosis: pneumonia , anxiety Referrals: Tree Hand PA [Physician Surgery Scheduling Coordinator] - 1 Week Sesar Pereyra MD [Primary Care Provider] - 1 Week Discharge Medications: New doxycycline monohydrate 100 mg Capsule 100 mg PO Q12H Qty: 10 0RF cefuroxime axetil 500 mg Tablet 500 mg PO Q12H Qty: 10 0RF lidocaine [Lidocaine Pain Relief] 4 % Adhesive Patch,Medicated 1 patch transdermal DAILY Qty: 7 0RF Protocol: Apply to: Apply to: affected area clonazepam 0.5 mg Tablet 0.5 mg PO DAILY PRN (Reason: Anxiety) Qty: 14 0RF magnesium oxide 400 mg (241.3 mg magnesium) Tablet 800 mg PO DAILY Qty: 7 0RF potassium chloride 10 mEq capsule, extended release 10 meq PO DAILY Qty: 7 0RF Continued cilostazol 50 mg tablet 50 mg PO BID atorvastatin 80 mg tablet 80 mg PO DAILY Eliquis 5 mg tablet 5 mg PO BID sertraline 50 mg tablet 50 mg PO DAILY polyethylene glycol 3350 17 gram Powder In Packet 17 g PO BEDTIME 30 Days Qty: 30 0RF gabapentin 100 mg capsule 300 mg PO BEDTIME dextroamphetamine-amphetamine 7.5 mg tablet 1 tab PO DAILY Multaq 400 mg Tablet 400 mg PO BID Qty: 180 0RF aspirin 81 mg tablet,delayed release (DR/EC) 81 mg PO DAILY metoprolol tartrate 25 mg tablet 12.5 mg PO BID rivastigmine tartrate 1.5 mg capsule 1.5 mg PO BID albuterol sulfate [Ventolin HFA] 90 mcg/actuation HFA aerosol inhaler 2 puff inhalation Q4H PRN (Reason: Shortness Of Breath Or Wheezing) oxycodone 5 mg tablet 5 mg PO Q6H PRN (Reason: pain) Rx Instructions: Partial Fill upon patient request. docusate sodium 100 mg capsule 100 mg PO DAILY clonazepam 0.5 mg tablet 0.5 mg PO BID hydralazine 25 mg tablet 25 mg PO BID 30 Days Qty: 60 4RF Rx Instructions: New med for BP tamsulosin 0.4 mg capsule 0.4 mg PO DAILY melatonin 3 mg capsule 3 mg PO BEDTIME PRN (Reason: Sleep) Discontinued furosemide 40 mg tablet 40 mg PO DAILY Qty: 90 3RF quetiapine 25 mg tablet 25 mg PO BID celecoxib [Celebrex] 200 mg capsule 200 mg PO DAILY Qty: 30 1RF Discharge Orders: Discharge Order (Routine); Ordered 09/14/24 Ordered By: Xiomara Steele Diet: Advance to usual diet Activity on Discharge: As tolerated Stand Alone Forms: Patient Portal Discharge page Print Language: Chinese Other Ambulatory Orders: Basic Metabolic Panel (Routine) Timeframe: 1 Week Facility: [facility] - Location: Laboratory Ordered By: Xiomara Steele Magnesium (Routine) Timeframe: 1 Week Facility: [facility] - Location: Laboratory Ordered By: Xiomara Steele Care Plan Goals: as below. Health Concerns: Complete p.o. Ceftin 500 mg p.o. b.i.d. for 7 days as well as p.o. doxycycline 100 mg p.o. b.i.d. for 7 days. Repeat chest imaging in 3-4 week. Outpatient to see resolution of pneumonia. potassium 10 meq daily for 1 week and magnesium 400 mg po bid for 1 week. consider check renal function and elctrolytes outpatient. relative boderline Orthostasis changes possibly related to dehydration and Lasix: Patient was also encouraged for p.o. intake and hydration. Patient is off Lasix. Patient is walking fine, currently asymptomatic. stopped seroquel and celecoxcib . patient hcp will d/w cilasatazol use with pcp. Patient is to follow-up with his PCP and outpatient psychiatry, and Cardiology outpatient and cardiology receomneded repeat EKG in about weeks' time to assess for QT interval. As per the patient 's healthcare proxy she is in process with case management to reach out to PCP for appointment. Patient was also strongly advised to follow up with [facility] program for Psychiatry outpatient(pillowcase folder psych miss Moore will arrange). Patient is to also follow-up with orthopedics outpatient for his recent left shoulder surgery. Plan of Treatment: as above. Assessment: As above. Patient Instructions: Pneumonia (DC)
[2024-09-14] MEDS: Potassium Chloride ER 10 MEQ TABLET.ER PO (14:49)
--- NOTE | 2024-09-14 14:53 | MHC.CM.PN ---
PT IS NOW MEDICALLY CLEARED TO DC HE WILL USE THE [facility] OUTPATIENT PSYCH [facility] AT [facility] AND [facility] FAMILY TO TRANSPORT
== END 2024-09-14 15:05 | disposition home health service (06) | DRG 871 ==
LOC: HO.ED 07:03 → HO.EDOVER 08:50 → HO.S3 08:57
PROVIDERS: Admitting Provider Internal Medicine; Emergency Provider Emergency Medicine Emergency Medical Services; PCP Internal Medicine; Visit Provider Internal Medicine
DX: A41.9 Sepsis, unspecified organism (principal); J18.9 Pneumonia, unspecified organism; J96.01 Acute respiratory failure with hypoxia; E87.21 Acute metabolic acidosis; I48.21 Permanent atrial fibrillation; I13.0 Hypertensive heart and chronic kidney disease with heart failure and stage 1 through stage 4 chronic kidney disease, or unspecified chronic kidney disease; I50.22 Chronic systolic (congestive) heart failure; G89.29 Other chronic pain; M25.512 Pain in left shoulder; F41.9 Anxiety disorder, unspecified; J43.9 Emphysema, unspecified; N40.0 Benign prostatic hyperplasia without lower urinary tract symptoms; R94.31 Abnormal electrocardiogram [ECG] [EKG]; E86.0 Dehydration; N18.30 Chronic kidney disease, stage 3 unspecified; I25.10 Atherosclerotic heart disease of native coronary artery without angina pectoris; Z20.822 Contact with and (suspected) exposure to COVID-19; Z87.891 Personal history of nicotine dependence; Z85.528 Personal history of other malignant neoplasm of kidney; Z87.01 Personal history of pneumonia (recurrent); Z79.01 Long term (current) use of anticoagulants; Z79.82 Long term (current) use of aspirin; Z79.899 Other long term (current) drug therapy
CPT/HCPCS: 0241U; 36415; 71045; 71250; 73030; 80048; 80053; 82803; 83605; 83735; 83880; 84484; 85025; 85027; 87040; 93005; 94640; 99285; J0692; J1271; J2250; J2919; J3371; J3475; J7120; P9047

== ENCOUNTER → 2024-09-09 06:00 | Outpatient (BNV) | payer MEDICARE, MEDICAID, SELFPAY | PROVIDERS: PCP Internal Medicine; Visit Provider Specialist | DX: R06.00 Dyspnea, unspecified (principal) | CPT/HCPCS: 71045 ==

== ENCOUNTER → 2024-09-09 06:28 | Outpatient (BNV) | payer MEDICARE, MEDICAID, SELFPAY | PROVIDERS: Admitting Provider Internal Medicine; Emergency Provider Emergency Medicine Emergency Medical Services; PCP Internal Medicine; Visit Provider Internal Medicine Cardiovascular Disease | DX: I25.2 Old myocardial infarction (principal) | CPT/HCPCS: 93010 ==

== ENCOUNTER 2024-09-09 08:49 | Outpatient (BNV) | payer MEDICARE, MEDICAID, SELFPAY | END 2024-09-10 18:50 | PROVIDERS: Admitting Provider Internal Medicine; Emergency Provider Emergency Medicine Emergency Medical Services; PCP Internal Medicine; Visit Provider Radiology Diagnostic Radiology | DX: J43.9 Emphysema, unspecified (principal); J18.1 Lobar pneumonia, unspecified organism; I51.7 Cardiomegaly | CPT/HCPCS: 71250 ==

== ENCOUNTER 2024-09-09 08:49 | Outpatient (BNV) | payer MEDICARE, MEDICAID, SELFPAY | END 2024-09-12 12:26 | PROVIDERS: Admitting Provider Internal Medicine; Emergency Provider Emergency Medicine Emergency Medical Services; PCP Internal Medicine; Visit Provider Radiology Diagnostic Radiology | DX: M19.012 Primary osteoarthritis, left shoulder (principal) | CPT/HCPCS: 73030 ==

== ENCOUNTER 2024-09-09 08:49 | Outpatient (BNV) | payer MEDICARE, MEDICAID, SELFPAY | END 2024-09-12 17:22 | PROVIDERS: Admitting Provider Internal Medicine; Emergency Provider Emergency Medicine Emergency Medical Services; PCP Internal Medicine; Visit Provider Internal Medicine Cardiovascular Disease | DX: I49.1 Atrial premature depolarization (principal); I44.0 Atrioventricular block, first degree; I25.2 Old myocardial infarction; I49.3 Ventricular premature depolarization | CPT/HCPCS: 93010 ==

== ENCOUNTER 2024-09-09 08:49 | Outpatient (BNV) | payer MEDICARE, MEDICAID, SELFPAY | END 2024-09-13 09:10 | PROVIDERS: Admitting Provider Internal Medicine; Emergency Provider Emergency Medicine Emergency Medical Services; PCP Internal Medicine; Visit Provider Internal Medicine Cardiovascular Disease | DX: I49.1 Atrial premature depolarization (principal); I25.2 Old myocardial infarction | CPT/HCPCS: 93010 ==

== ENCOUNTER → 2024-09-09 08:49 | Outpatient (BNV) | payer MEDICARE, MEDICAID, SELFPAY | PROVIDERS: Admitting Provider Internal Medicine; Emergency Provider Emergency Medicine Emergency Medical Services; PCP Internal Medicine | DX: S42.102A Fracture of unspecified part of scapula, left shoulder, initial encounter for closed fracture (principal); S42.143A Displaced fracture of glenoid cavity of scapula, unspecified shoulder, initial encounter for closed fracture; S42.153A Displaced fracture of neck of scapula, unspecified shoulder, initial encounter for closed fracture; S43.005A Unspecified dislocation of left shoulder joint, initial encounter; M25.512 Pain in left shoulder | CPT/HCPCS: 99024 ==

== ENCOUNTER → 2024-09-09 08:49 | Outpatient (BNV) | payer MEDICARE, MEDICAID, SELFPAY | PROVIDERS: Admitting Provider Internal Medicine; Emergency Provider Emergency Medicine Emergency Medical Services; PCP Internal Medicine; Visit Provider Psychiatry & Neurology Psychiatry | DX: F41.9 Anxiety disorder, unspecified (principal); I50.9 Heart failure, unspecified; I48.0 Paroxysmal atrial fibrillation; I10 Essential (primary) hypertension; J18.9 Pneumonia, unspecified organism | CPT/HCPCS: 99232 ==

== ENCOUNTER → 2024-09-09 08:49 | Outpatient (BNV) | payer MEDICARE, MEDICAID, SELFPAY | PROVIDERS: Admitting Provider Internal Medicine; Emergency Provider Emergency Medicine Emergency Medical Services; PCP Internal Medicine; Visit Provider Internal Medicine | DX: J96.01 Acute respiratory failure with hypoxia (principal) | CPT/HCPCS: 99223; 99231 ==

== ENCOUNTER → 2024-09-09 08:49 | Outpatient (BNV) | payer MEDICARE, SELFPAY | PROVIDERS: Admitting Provider Internal Medicine; Emergency Provider Emergency Medicine Emergency Medical Services; PCP Internal Medicine; Visit Provider Internal Medicine Pulmonary Disease | DX: J96.01 Acute respiratory failure with hypoxia (principal) | CPT/HCPCS: 99222 ==

== ENCOUNTER → 2024-09-09 08:49 | Outpatient (BNV) | payer MEDICARE, MEDICAID, SELFPAY | PROVIDERS: Admitting Provider Internal Medicine; Emergency Provider Emergency Medicine Emergency Medical Services; PCP Internal Medicine; Visit Provider Internal Medicine Cardiovascular Disease | DX: I49.9 Cardiac arrhythmia, unspecified (principal); R94.31 Abnormal electrocardiogram [ECG] [EKG]; R42 Dizziness and giddiness | CPT/HCPCS: 99222 ==

== ENCOUNTER 2024-09-16 08:31 | Outpatient (AMB) | payer MEDICARE, MEDICAID, SELFPAY ==
--- NOTE | 2024-09-16 08:34 | A.OFFVIS_ITS ---
Vital Signs 09/16/24 08:35 Height 6 ft Weight 231 lb 7.766 oz BMI 31.4 BP 124/62 Blood Pressure Location Lt brachial Position Sitting Pulse 64 Pulse Source Monitor Intake Visit Reasons: [facility] d/c chf HS med interact? Bread Dumper Required: No Allergies No Known Allergies [No Known Allergies*] Allergy (Verified 09/16/24 08:38) Medication List - Last Reconciled 09/16/24 by MITCH AvilesC albuterol sulfate 90 mcg/actuation (Ventolin HFA) 2 puffs inhalation Q4H PRN apixaban (Eliquis) 5 mg PO BID aspirin 81 mg PO DAILY atorvastatin 80 mg PO DAILY cefuroxime axetil 500 mg PO Q12H cilostazol 50 mg PO BID clonazepam 0.5 mg PO DAILY PRN dextroamphetamine-amphetamine 7.5 mg 1 tab PO DAILY docusate sodium 100 mg PO DAILY doxycycline monohydrate 100 mg PO Q12H dronedarone (Multaq) 400 mg PO BID gabapentin 300 mg PO BEDTIME hydralazine 25 mg PO BID 30 days lidocaine 4% (Lidocaine Pain Relief) 1 patch See Protocol transdermal DAILY magnesium oxide 800 mg (2 x 400 mg (241.3 mg magnesium)) PO DAILY melatonin 3 mg PO BEDTIME PRN metoprolol tartrate 12.5 mg PO BID oxycodone 5 mg PO Q6H PRN polyethylene glycol 3350 17 grams PO BEDTIME 30 days potassium chloride ER 10 mEq PO DAILY rivastigmine tartrate 1.5 mg PO BID sertraline 50 mg PO DAILY tamsulosin 0.4 mg PO DAILY HPI HPI [facility] d/c chf HS med interact?: Details: Alex is a 79-year-old male past medical history of hypertension, hyperlipidemia, peripheral vascular disease, dilated ascending aorta, coronary artery disease, lad stent, atrial flutter, SVT, orthostatic hypotension, SVT, who presents for follow up. Since last visit in May he has had 5 [facility] admissions: 1 after fall and sustaining fractured left humerus which was surgically repaired, for admissions for respiratory failure, pneumonia, diastolic heart failure. He was last discharged on 09/14/2024 and now presents for follow-up. Today he reports that he has been doing well since his hospital discharge 2 days ago. He still has some shortness of breath with activity and is on antibiotics to treat his current pneumonia. He is no longer on diuretics as he did have low blood pressure readings. On exam he does have some swelling in his right ankle, none on the left. He denies PND, orthopnea, cough. He has no chest discomfort at rest or with activity. He denies heart palpitations, lightheadedness, recurrent falls. He has VNA services. Was able to drive to this visit today. [facility] Medical History Paroxysmal atrial flutter Preoperative cardiovascular examination Coronary artery disease Hypersomnia Snoring Neuropathy Atherosclerotic cardiovascular disease History of alcohol abuse History of COVID-19 On beta jose at home COPD (chronic obstructive pulmonary disease) On anticoagulant therapy History of atrial fibrillation PVD (peripheral vascular disease) Renal cell carcinoma Hypertension Depression Anxiety Diverticulitis Surgical History History of intestinal surgery History of kidney surgery H/O cardiac catheterization History of colectomy S/P femoral-femoral bypass surgery Social History Household Members: Other Household Members Other:: girlfriend Housing: House Are you a primary career development coordinator to a significant other at home: No Do you presently have visiting nurse or other home services: Yes Alcohol intake: never Patient Tobacco Use Status: Former Tobacco user Tobacco use type: Cigarette Second Hand Smoke Exposure: No Substance Use Type: Marijuana Advance Directives Date on File: 06/09/21 service: No Current occupational status: retired Current occupation: right hand dominant Review of Systems Const All systems reviewed & are unremarkable except as noted in HPI and below Reports fatigue ENT Denies dizziness Card Denies chest pain, Denies chest pain at rest, Denies chest pain with activity, Denies rapid heart rate, Denies pedal edema, Denies edema, Denies leg edema, Denies lightheadedness, Denies palpitations, Denies dyspnea, Reports dyspnea on exertion and Denies orthopnea Resp Denies cough, Denies dyspnea and Reports dyspnea on exertion GI Denies hematochezia and Denies change in stool character Musc Denies abnormal gait, Reports limited range of motion, Reports muscle cramps, Denies muscle weakness, Denies numbness, Denies radiating pain into limb, Denies stiffness and Denies tingling Neuro Denies abnormal gait, Denies dizziness, Denies numbness and Denies tingling Endo Reports fatigue and Denies palpitations Physical Exam Vital Signs: Last Vital Signs Pulse 64 09/16/24 08:35 BP 124/62 09/16/24 08:35 BMI result Body Mass Index 31.4 Const General: cooperative, healthy appearing, comfortable and no acute distress Orientation/consciousness: patient oriented x3 Neck Neck: Yes normal visual inspection and Yes no JVD Resp Effort & Inspection: normal respiratory effort Auscultation: clear to auscultation bilaterally, no rales, no rhonchi and no wheezes Cardio Rate: regular rate Rhythm: regular rhythm Heart sounds: S1 normal heart sound present, S2 normal heart sound present, no gallops, no murmurs and no rubs Neuro General: patient oriented x3 Extrem Other: +1 soft swelling right ankle, no swelling left ankle Psych Appearance: grossly normal Mental Status: mental status grossly normal Speech and movement: Normal speech and movement present Office Procedures EKG Details: Today, read by me sinus rhythm, septal infarct, rate 64, Qtc 493ms [id number], Complete Results Reviewed Results Reviewed: Echocardiogram 08/05/2024 Conclusions: - The left ventricular systolic function is normal. The calculated ejection fraction is 58% by biplane method. - No obvious valvular pathology seen on this study. - There is mild dilatation of the sinuses of Valsalva measuring 4.70 cm, mild dilatation of the ascending aorta measuring 4.10 cm, and mild dilatation of the aortic arch measuring 4.00 cm. Assessment & Plan Assessment & Plan (1) CHF (congestive heart failure): Code(s): I50.9 - Heart failure, unspecified Category: Medical Plan: Diastolic heart failure during recent hospital admission, July 2024. He initially was put on Lasix and did have some CATALINO and low blood pressure readings. Subsequently his diuretics were stopped. He is currently being treated for pneumonia with antibiotic use. He does not appear fluid overloaded on exam though he does have some mild edema in his right ankle. Signs and symptoms of heart failure reviewed with him in detail. Discussed low-salt diet and recommended fluid intake 48 oz daily. He will obtain repeat labs as ordered at time of hospital discharge. Will plan follow-up in 4-6 weeks, as he has had frequent admissions recently, to re-evaluate for heart failure symptoms, need for diuretic therapy. (2) SVT (supraventricular tachycardia): Code(s): I47.10 - Supraventricular tachycardia, unspecified Category: Medical Plan: History of NSVT, currently on Multaq 400 mg b.i.d for rhythm control and metoprolol for heart rate control. EKG done today showing normal sinus rhythm, septal infarct, rate 64, QTC 493 millisecond. Labs are pending. Vagal maneuvers reviewed. Emergency care if needed for sustained rapid palpitation. (3) Hypertension: Code(s): I10 - Essential (primary) hypertension Category: Medical Qualifiers: Hypertension type: unspecified Qualified Code(s): I10 - Essential (primary) hypertension Plan: History of hypertension. His lisinopril and Lasix were stopped at the time of his last discharge. His Lasix was restarted earlier prior to his last visit due to reports of weight gain and leg edema. Blood pressure quite elevated on last visit.He previously had CATALINO so lisinopril was not restarted. I avoided the use of amlodipine as he already has bilateral lower leg edema. He was then started on hydralazine 25 mg b.i.d.. Blood pressure today initially mildly elevated at 142/72, recheck done by me 136/68. This is acceptable. No med changes at this time. Continue hydralazine, metoprolol and Lasix. (4) Paroxysmal atrial fibrillation: Code(s): I48.0 - Paroxysmal atrial fibrillation Category: Medical Plan: History of paroxysmal atrial fibrillation. No recent known reoccurrence. On Multaq and metoprolol as above. He is on Eliquis for anticoagulation. No bleeding issues reported. Labs done by 2024 showed creatinine 0.99. EKG today shows sinus rhythm. (5) Coronary artery disease: Code(s): I25.10 - Atherosclerotic heart disease of [place] coronary artery without angina pectoris Category: Medical Plan: History of coronary artery disease with LAD stent, 05/05/2022. Recent echo shows EF 58%, no regional wall motion abnormalities. He is on aspirin,metoprolol, high-dose atorvastatin with ideal LDL goal less than 70. Last lipids in our system 07/15/2022 showed LDL 72. Lipid order in system. (6) S/P cardiac cath: Comment: 05/05/2022, left main mild disease, lad proximal 65% stenosis, 1st diagonal 100% stenosis, left circumflex minimal irregularities, RCA mid 50% stenosis, right PDA 50% stenosis, stent placed to the proximal LAD Code(s): Z98.890 - Other specified postprocedural states Category: Surgical Plan: As above (7) PVD (peripheral vascular disease): Code(s): I73.9 - Peripheral vascular disease, unspecified Category: Medical Plan: He reports of history of stent in his right femoral region, fem to fem bypass on the left. He has ongoing issues with numbness in his lower extremities. He normally ambulates steadily. He has been followed by Dr. Mendoza. He is on aspi rin and Eliquis. (8) Ascending aortic aneurysm: Code(s): I71.2 - Thoracic aortic aneurysm, without rupture Category: Medical Plan: Last echo 08/05/2024 shows sinus of Valsalva 4.7 cm, ascending aorta 4.1 cm. Will plan for a repeat echo in 1 year. Plan Time spent on chart review, documentation, interview and assessment Patient was informed and verbally consented to the use of an ambient scribe for clinic note documentation during this visit. I informed the patient about the importance of adhering to antibiotics for pneumonia and the consensus to manage Atrial Fibrillation with blood thinners like Eliquis. Heart failure management strategies include restricted fluid and sodium intake. Discussions highlighted compression stockings us. Emphasizing reduced activity for symptomatic control was outlined. Consent to observe signs of fluid overload was clear, with a contingency for diuretic considerations should leg swelling increase. Follow-up interaction timeframe was provisionally targeted within four to six weeks. Patient Instructions: - Continue taking antibiotics as prescribed. - Limit fluid intake to 48 ounces per day. - Avoid excessive sodium in your diet. - Wear compression socks during the day; remove them at night. - Reduce physical exertion and take rest as needed. - Watch for signs of increased swelling or shortness of breath and report them promptly. - Follow up in four to six weeks for ongoing monitoring. Coding Level of Care Code Est Pt Level 4 (32933) Complex EM visit Add On G2211 Diagnoses CHF (congestive heart failure) I50.9 SVT (supraventricular tachycardia) I47.10 Hypertension, unspecified type I10 Hypertension type: unspecified Paroxysmal atrial fibrillation I48.0 Coronary artery disease I25.10 S/P cardiac cath Z98.890 PVD (peripheral vascular disease) I73.9 Ascending aortic aneurysm I71.2 CPT Codes EKG - CPT: [id number], Complete ([id number]) Time Spent (min) 36
[2024-09-16 08:35] VITALS: BP 124/62; PULSE 64; BMI 31.4
--- OUTSIDE RECORDS SUMMARY | 2024-09-16 08:36 | XMS_ITS | Encounter Summary ---
Author Organization [facility] Address [address] [place] [address] Care Team Providers Care Market Superintendent Name Role Phone Ghassan Burciaga MD Primary Care Provider Unavail able Pierre Arevalo MD Primary Care Provider Judy vailable Gerson Dawson MD Primary Care Provider Unavail able [facility], Pcp Primary Care Provider Unavailabl e Coleman Mccarthy MD Primary Care Provider Unavaila Ayo Demarco MD Primary Care Provider [phone] Annalee Jones MD Primary Care Provider Un available Kim Banegas Yolande DO Primary Care Pro vider Unavailable Anuj Priest DO Primary Care Provider Judy vailable [facility], Pcp Primary Care Provider Unavailabl e Encounter Details Date Type Department Care Team Description 06/25/2011 Pt. Non Urgent Medic al Question Medicine/Pediatrics - [address] [id number] Ghassan Burciaga MD Social History Tobacco Use [...] on filedocumented in this encounter Care Teams Market Superintendent Relationship Specialty Start Date End Date Ghassan Burciaga MD PCP - General 07/24/00 05/06/13 Pierre Arevalo MD PCP - General Internal Medicine 05/07/13 4 Gerson Dawson MD PCP - General Internal Medicine 01/30/14 03/20/14 [facility], Pcp PCP - General Internal Medicine 03/21/14 05/06/14 Coleman Mccarthy MD PCP - General Internal Medicine 05/07/14 07/18/16 Ayo Carpio MD [address] [place] [address] PCP - General Internal Medicine 07/19/16 01/05/17 Annalee Jones MD [address] [place] [address] PCP - General Internal Medicine 01/06/17 12/02/18 Yolande Nicholas, [address] [address] PCP - General Internal Medicine 12/03/18 10/08/20 Anuj Priest, [address] [address] PCP - General Internal Medicine 10/09/20 06/16/21 [facility], Pcp PCP - General Internal Medicine 06/17/21 documented as of this encounter
--- OUTSIDE RECORDS SUMMARY | 2024-09-16 08:36 | XMS_ITS | Encounter Summary ---
Author Organization [facility] Address [address] [place] [address] Care Team Providers Care Power Equipment Mechanics Instructor Name Role Phone Yolande Nicholas DO Primary Care Pro vider Unavailable Anuj Priest DO Primary Care Provider [facility], Pcp Primary Care Provider Unavailabl e Reason for Visit * Reason Onset Date Comments anxiety 09/16/2019 Encounter Details Date Type Department Care Team Description 09/16/2019 Pt. Non Urgent Medic al Question Adult Medicine [address] [address] Yolande Nicholas DO Social History Tobacco Use [...] the med report [facility] . I need to know which meds i should take? Alex Nettles documented in this encounter Plan of Treatment Not on file documented as of this encounter Visit Diagnoses Not on filedocumented in this encounter Care Teams Power Equipment Mechanics Instructor Relationship Specialty Start Date End Date Yolande Nicholas DO PCP - General Internal Medicine 12/03/18 10/08/20 Anuj Priest DO PCP - General Internal Medicine 10/09/20 2 Pending Sale To [facility], Pcp PCP - General Internal Medicine 06/17/21 documented as of this encounter
--- OUTSIDE RECORDS SUMMARY | 2024-09-16 08:36 | XMS_ITS | Encounter Summary ---
Author Organization [facility] Address [address] [place] [address] Care Team Providers Care Drupal Architect Name Role Phone Yolande Nicholas DO Primary Care Pro vider Unavailable Anuj Priest DO Primary Care Provider [facility], Pcp Primary Care Provider Unavailabl e Reason for Visit * Reason Onset Date Comments Faxed Order 10/05/2019 [facility] Encounter Details Date Type Department Care Team Description 10/05/2019 Telephone Adult Medicine [address] [address] Yolande Nicholas DO Faxed Order ([facility]) Social History Tobacco Use Types Packs/Day Years [...] review, sign and fax back orders to [facility]. documented in this encounter Plan of Treatment Not on file documented as of this encounter Visit Diagnoses Not on filedocumented in this encounter Care Teams Drupal Architect Relationship Specialty Start Date End Date Yolande Nicholas DO PCP - General Internal Medicine 12/03/18 10/08/20 Anuj Priest DO PCP - General Internal Medicine 10/09/20 2 [facility], Pcp PCP - General Internal Medicine 06/17/21 documented as of this encounter
--- OUTSIDE RECORDS SUMMARY | 2024-09-16 08:36 | XMS_ITS | Encounter Summary ---
Author Organization [facility] Address [address] [place] [address] Care Team Providers Care Intensive Care Nurse Name Role Phone Ghassan Burciaga MD Primary Care Provider Unavail able Pierre Arevalo MD Primary Care Provider Judy vailable Gerson Dawson MD Primary Care Provider Unavail able [facility], Pcp Primary Care Provider Unavailabl e Coleman Mccarthy MD Primary Care Provider Unavaila Ayo Demarco MD Primary Care Provider [phone] Annalee Jones MD Primary Care Provider Un available Pascual Nicholasabela DO Primary Care Pro vider Unavailable Anuj Priest DO Primary Care Provider Judy vailable [facility], Pcp Primary Care Provider Unavailabl e Encounter Details Date Type Department Care Team Description 08/26/2011 Survey Research Teacher Report Medical Records [address] [place] [address] Anuj [place] Social History Tobacco Use Types [...] on filedocumented in this encounter Care Teams Intensive Care Nurse Relationship Specialty Start Date End Date Ghassan Burciaga MD PCP - General 07/24/00 05/06/13 Pierre Arevalo MD PCP - General Internal Medicine 05/07/13 4 Gerson Dawson MD PCP - General Internal Medicine 01/30/14 03/20/14 [facility], Pcp PCP - General Internal Medicine 03/21/14 05/06/14 Coleman Mccarthy MD PCP - General Internal Medicine 05/07/14 07/18/16 Ayo Carpio MD [address] [place], [place] [id number] PCP - General Internal Medicine 07/19/16 01/05/17 Annalee Jones MD [address] [place], [place] [id number] PCP - General Internal Medicine 01/06/17 12/02/18 Yolande Nicholas DO [address] [place] [address] PCP - General Internal Medicine 12/03/18 10/08/20 Anuj Priest DO [address] [place] [address] PCP - General Internal Medicine 10/09/20 06/16/21 [facility], Pcp PCP - General Internal Medicine 06/17/21 documented as of this encounter
--- OUTSIDE RECORDS SUMMARY | 2024-09-16 08:36 | XMS_ITS | Encounter Summary ---
Author Organization [facility] Address [address] [place] [address] Care Team Providers Care Feed In Worker Name Role Phone Yolande Nicholas DO Primary Care Pro vider Unavailable Anuj Priest DO Primary Care Provider Judy Gardner, Pcp Primary Care Provider Unavailabl e Encounter Details Date Type Department Care Team Description 10/08/2019 Home Health Certification Medical Records [address] [place] [address] Home, [facility] [address] [place] [address] Social History Tobacco Use Types Packs/Day Years [...] on filedocumented in this encounter Care Teams Feed In Worker Relationship Specialty Start Date End Date Yolande Nicholas DO PCP - General Internal Medicine 12/03/18 10/08/20 Anuj Priest DO PCP - General Internal Medicine 10/09/20 Molly Gardner, Pcp PCP - General Internal Medicine 06/17/21 documented as of this encounter
--- OUTSIDE RECORDS SUMMARY | 2024-09-16 08:36 | XMS_ITS | Encounter Summary ---
Author Organization [facility] Address [address] [place] [address] Care Team Providers Care Biofuels Technology Manager Name Role Phone Yolande Nicholas DO Primary Care Pro vider Unavailable Anuj Priest DO Primary Care Provider Judy Gardner, Pcp Primary Care Provider Unavailabl e Encounter Details Date Type Department Care Team Description 10/07/2019 Pt. Non Urgent Medic al Question Adult Medicine [address] [address] Yolande Nicholas DO Social History Tobacco Use [...] on filedocumented in this encounter Care Teams Biofuels Technology Manager Relationship Specialty Start Date End Date Yolande Nicholas DO PCP - General Internal Medicine 12/03/18 10/08/20 Anuj Priest DO PCP - General Internal Medicine 10/09/20 Molly Gardner, Pcp PCP - General Internal Medicine 06/17/21 documented as of this encounter
--- OUTSIDE RECORDS SUMMARY | 2024-09-16 08:36 | XMS_ITS | Encounter Summary ---
Author Organization [facility] Address [address] [place] [address] Care Team Providers Care Catalyst Supervisor Name Role Phone Yolande Nicholas DO Primary Care Pro vider Unavailable Anuj Priest DO Primary Care Provider [facility], Pcp Primary Care Provider Unavailabl e Reason for Visit * Reason Onset Date Comments Abdominal Pain 10/08/2019 Hernia 10/08/2019 Encounter Details Date Type Department Care Team Description 10/08/2019 Telephone Adult Medicine [address] [address] Yolande Nicholas DO Abdominal Pain; Hernia Social [...] back and can be reached back at [phone] * Telephone Encounter - Minerva Kan R.N. - 10/08/2019 3:06 PM EDT Ame is not with him. Call pt on his cell phone , left a message * Telephone Encounter - Lavonne Bernabe - 10/08/2019 3:04 PM EDT Ame calling back and would like CB at [phone] * Telephone Encounter - Sharmaine Bose - [...] abroad? NO ??? Have you been to [place] or in contact with anyone who has recently been in [place]? NO If pain or injury related was it due to an accident at work or from a motor vehicle accident? NO If yes, gather 3rd constitution party insurance information Date of accident/Injury: How long has patient had these symptoms?: PCP: Yolande Gomez Payor: GIO - MEDICARE / Plan: MEDICARE FFS $5 KARI MESA [id number] / Product Type: MEDICARE [id number] documented in this encounter Plan of Treatment Not on file documented as of this encounter Visit Diagnoses Not on filedocumented in this encounter Care Teams Catalyst Supervisor Relationship Specialty Start Date End Date Yolande Nicholas DO PCP - General Internal Medicine 12/03/18 10/08/20 Anuj Priest DO PCP - General Internal Medicine 10/09/20 2 Jj, Pcp PCP - General Internal Medicine 06/17/21 documented as of this encounter
--- OUTSIDE RECORDS SUMMARY | 2024-09-16 08:36 | XMS_ITS | Encounter Summary ---
Author Organization [facility] Address [address] [place] [address] Care Team Providers Care Television Servicer Name Role Phone Ghassan Burciaga MD Primary Care Provider Unavail able Pierre Arevalo MD Primary Care Provider Judy vailable Gerson Dawson MD Primary Care Provider Unavail able [facility], Pcp Primary Care Provider Unavailabl Coleman Sampson MD Primary Care Provider Unavaila Ayo Demarco MD Primary Care Provider [phone] Annalee Jones MD Primary Care Provider Un available Pascual Nicholasabela DO Primary Care Pro vider Unavailable Anuj Priest DO Primary Care Provider Judy vailable Counts Include [facility], Pcp Primary Care Provider Unavailabl e Encounter Details Date Type Department Care Team Description 06/27/2011 Business Doc Medical Records [address] [place] [address] Abstract, Provider Social History Tobacco Use Types [...] on filedocumented in this encounter Care Teams Television Servicer Relationship Specialty Start Date End Date Ghassan [...] Medicine 05/07/14 07/18/16 Ayo Carpio MD [address] [place], [place] [id number] PCP - General Internal Medicine 07/19/16 01/05/17 Annalee Jones MD [address] [place], [place] [id number] PCP - General Internal Medicine 01/06/17 12/02/18 Yolande Nicholas DO [address] [place] [address] PCP - General Internal Medicine 12/03/18 10/08/20 Anuj Priest DO [address] [place] [address] PCP - General Internal Medicine 10/09/20 06/16/21 Counts Include [address] [facility], Pcp PCP - General Internal Medicine 06/17/21 documented as of this encounter
--- OUTSIDE RECORDS SUMMARY | 2024-09-16 08:36 | XMS_ITS | Encounter Summary ---
Author Organization [facility] Address [address] [place] [address] Care Team Providers Care Plumber Supervisor Name Role Phone Yolande Nicholas DO Primary Care Pro vider Unavailable Anuj Priest DO Primary Care Provider Judy Gardner, Pcp Primary Care Provider Unavailabl e Encounter Details Date Type Department Care Team Description 10/07/2019 Ritual Circumciser Report Medical Records [address] [place] [address] Dhruv Garcia MD Social History Tobacco Use [...] on filedocumented in this encounter Care Teams Plumber Supervisor Relationship Specialty Start Date End Date Yolande Nicholas DO PCP - General Internal Medicine 12/03/18 10/08/20 Anuj Priest DO PCP - General Internal Medicine 10/09/20 Jj, Pcp PCP - General Internal Medicine 06/17/21 documented as of this encounter
--- OUTSIDE RECORDS SUMMARY | 2024-09-16 08:36 | XMS_ITS | Encounter Summary ---
[facility] Address [address] [place] [address] Care Team Providers Care Portfolio Director Name Role Phone Yolande Nicholas DO Primary Care Pro vider Unavailable Anuj Priest DO Primary Care Provider Judy Gardner, Pcp Primary Care Provider Unavailabl e Encounter Details Date Type Department Care Team Description 12/26/2019 Hospital Medical Records [address] [place] [address] Social History Tobacco Use Types Packs/Day Years [...] on filedocumented in this encounter Care Teams Portfolio Director Relationship Specialty Start Date End Date Yolande Nicholas DO PCP - General Internal Medicine 12/03/18 10/08/20 Anuj Priest DO PCP - General Internal Medicine 10/09/20 2 Jose G Gardner PCP - General Internal Medicine 06/17/21 documented as of this encounter
--- OUTSIDE RECORDS SUMMARY | 2024-09-16 08:36 | XMS_ITS | Encounter Summary ---
Author [facility] Address [address] [place] [address] Care Team Providers Care Cloth Roll Winder Name Role Phone Yolande Nicholas DO Primary Care Pro vider Unavailable Anuj Priest DO Primary Care Provider Judy Gardner, Pcp Primary Care Provider Unavailabl e Encounter Details Date Type Department Care Team Description 09/26/2019 Telephone Adult Medicine B - [place] [address] [place] [address] Teri Layton MD Social History Tobacco Use [...] filedocumented in this encounter Care Teams Cloth Roll Winder Relationship Specialty Start Date End Date Yolande Nicholas DO PCP - General Internal Medicine 12/03/18 10/08/20 Anuj Priest DO PCP - General Internal Medicine 10/09/2006/16/ 2 Jj, Pcp PCP - General Internal Medicine 06/17/21 documented as of this encounter
--- OUTSIDE RECORDS SUMMARY | 2024-09-16 08:36 | XMS_ITS | Encounter Summary ---
Author Organization [facility] Address [address] [place] [address] Care Team Providers Care Newspaper Illustrator Name Role Phone Ghassan Burciaga MD Primary Care Provider Unavail able Pierre Arevalo MD Primary Care Provider Judy vailable Gerson Dawson MD Primary Care Provider Unavail able [facility], Pcp Primary Care Provider Unavailabl e Coleman Mccartyh MD Primary Care Provider Unavaila Ayo Demarco MD Primary Care Provider [phone] Annalee Jones MD Primary Care Provider Un available Pascaul Nicholasabela DO Primary Care Pro vider Unavailable Anuj Priest DO Primary Care Provider Judy vailable [facility], Pcp Primary Care Provider Unavailabl e Encounter Details Date Type Department Care Team Description 10/28/2011 Lotus Notes Administrator Report Medical Records [address] [place] [address] Nhan Herbert MD Social History Tobacco Use [...] filedocumented in this encounter Care Teams Newspaper Illustrator Relationship Specialty Start Date End Date Ghassan Burciaga MD PCP - General 07/24/00 05/06/13 Pierre Arevalo MD PCP - General Internal Medicine 05/07/13 4 Gerson Dawson MD PCP - General Internal Medicine 01/30/14 03/20/14 [facility], Pcp PCP - General Internal Medicine 03/21/14 05/06/14 Coleman Mccarthy MD PCP - General Internal Medicine 05/07/14 07/18/16 Ayo Carpio MD [address] [place], [place] [id number] PCP - General Internal Medicine 07/19/16 01/05/17 Annalee Jones MD [address] [place], [place] [id number] PCP - General Internal Medicine 01/06/17 12/02/18 Yolande Nicholas DO [address] [place] [address] PCP - General Internal Medicine 12/03/18 10/08/20 Anuj Priest DO [address] [place] [address] PCP - General Internal Medicine 10/09/20 06/16/21 [facility], Pcp PCP - General Internal Medicine 06/17/21 documented as of this encounter
--- OUTSIDE RECORDS SUMMARY | 2024-09-16 08:36 | XMS_ITS | Encounter Summary ---
Author [facility] Address [address] [place] [address] Care Team Providers Care Poultry Cutter Name Role Phone Yolande Nicholas DO Primary Care Pro vider Unavailable Anuj Priest DO Primary Care Provider Judy Gardner, Pcp Primary Care Provider Unavailabl e Encounter Details Date Type Department Care Team Description 10/23/2019 Release of Information Medical Records [address] [place] [id number] Abstract, Provider Social History Tobacco Use Types [...] filedocumented in this encounter Care Teams Poultry Cutter Relationship Specialty Start Date End Date Yolande Nicholas DO PCP - General Internal Medicine 12/03/18 10/08/20 Anuj Priest DO PCP - General Internal Medicine 10/09/20 2 Jj, Pcp PCP - General Internal Medicine 06/17/21 documented as of this encounter
--- OUTSIDE RECORDS SUMMARY | 2024-09-16 08:36 | XMS_ITS | Encounter Summary ---
Author Organization [employer] [facility] Address [address] [place] [address] Care Team Providers Care Senior Windows Engineer Name Role Phone Ghassan Burciaga MD Primary Care Provider Unavail able Pierre Arevalo MD Primary Care Provider Judy vailable Gerson Dawson MD Primary Care Provider Unavail able [facility], Pcp Primary Care Provider Unavailabl e Coleman Mccarthy MD Primary Care Provider Unavaila Ayo Demarco MD Primary Care Provider [phone] Annalee Jones MD Primary Care Provider Un available Pascual Nicholasabela DO Primary Care Pro vider Unavailable Anuj Priest DO Primary Care Provider Judy vailable [facility], Pcp Primary Care Provider Unavailabl e Encounter Details Date Type Department Care Team Description 09/27/2012 Release of Information Medical Records [address] [place] [id number] Abstract, Provider Social History Tobacco Use Types [...] filedocumented in this encounter Care Teams Senior Windows Engineer Relationship Specialty Start Date End Date Ghassan Burciaga MD PCP - General 07/24/00 05/06/13 Pierre Arevalo MD PCP - General Internal Medicine 05/07/13 4 Gerson Dawson MD PCP - General Internal Medicine 01/30/14 03/20/14 [facility], Pcp PCP - General Internal Medicine 03/21/14 05/06/14 Coleman Mccarthy MD PCP - General Internal Medicine 05/07/14 07/18/16 Ayo Carpio MD [address] [place], [place] [id number] PCP - General Internal Medicine 07/19/16 01/05/17 Annalee Jones MD [address] [place], [place] [id number] PCP - General Internal Medicine 01/06/17 12/02/18 Yolande Nicholas DO [address] [place] [address] PCP - General Internal Medicine 12/03/18 10/08/20 Anuj Priest DO [address] [place] [address] PCP - General Internal Medicine 10/09/20 06/16/21 [facility], Pcp PCP - General Internal Medicine 06/17/21 documented as of this encounter
--- OUTSIDE RECORDS SUMMARY | 2024-09-16 08:37 | XMS_ITS | Encounter Summary ---
Author Organization [facility] Address [address] [place] [address] Care Team Providers Care Hob Machine Operator Name Role Phone Yolande Nicholas DO Primary Care Pro vider Unavailable Anuj Priest DO Primary Care Provider [facility], Pcp Primary Care Provider Unavailabl e Reason for Visit * Reason Onset Date Comments Faxed Order 01/16/2020 Encounter Details Date Type Department Care Team Description 01/16/2020 Telephone Adult Medicine [address] [address] Yolande Nicholas DO Faxed Order Social History [...] to be signed and faxed back to [phone] * Telephone Encounter - Lucy Pardo - 01/24/2020 2:35 PM EDT More Faxed orders received from [facility], placed in providers bin for review. Please sign and fax orders to [phone]. * Telephone Encounter - Susan Calderon - 01/16/2020 12:19 PM EDT Physician order for Dr. Yolande Alvarez-Makenzie's signature - tracking # [id number] documented in this encounter Plan of Treatment Not on file documented as of this encounter Visit Diagnoses Not on filedocumented in this encounter Care Teams Hob Machine Operator Relationship Specialty Start Date End Date Yolande Nicholas DO PCP - General Internal Medicine 12/03/18 10/08/20 Anuj Priest DO PCP - General Internal Medicine 10/09/[address] [place] [address], Pcp PCP - General Internal Medicine 06/17/21 documented as of this encounter
--- OUTSIDE RECORDS SUMMARY | 2024-09-16 08:37 | XMS_ITS | Encounter Summary ---
Author Organization [facility] Address [address] [place] [address] Care Team Providers Care Human Resources Compensation Analyst Name Role Phone Yolande Nicholas DO Primary Care Pro vider Unavailable Anuj Priest DO Primary Care Provider [facility], Pcp Primary Care Provider [facility] Encounter Details Date Type Department Care Team Description 07/02/2019 Pt. Non Urgent Medic al Question Adult Medicine [address] [address] Yolande Nicholas DO Social History Tobacco Use [...] 9:52 AM ESTFrom: Alex Nettles To: Yolande Bnaegas DO Sent: 07/02/2019 9:52 AM EST Subject: Per refill Clonazepam 0.5mg Dr. 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 refilled by my documented in this encounter Plan of Treatment Not on file documented as of this encounter Visit Diagnoses Not on filedocumented in this encounter Care Teams Human Resources Compensation Analyst Relationship Specialty Start Date End Date Yolande Nicholas DO PCP - General Internal Medicine 12/03/18 10/08/20 Anuj Priest DO PCP - General Internal Medicine 10/09/[address] [place] [address], Pcp PCP - General Internal Medicine 06/17/21 documented as of this encounter
--- OUTSIDE RECORDS SUMMARY | 2024-09-16 08:37 | XMS_ITS | Encounter Summary ---
Author Organization [facility] Address [address] [place] [address] Care Team Providers Care Biometrics Technician Name Role Phone Yolande Nicholas DO Primary Care Pro vider Unavailable Anuj Priest DO Primary Care Provider [facility], Pcp Primary Care Provider Unavailabl e Reason for Visit * Reason Onset Date Comments Provider Call Back 01/29/2020 FYI Encounter Details Date Type Department Care Team Description 01/29/[address] [address] Yolande Nicholas DO Provider Call Back (FYI) [...] [facility]. Going to ER and hoping tohave him admitted today. Has consultation with Dr Ben Rodriguez, endovascular surgeon on 02-06-20 [place] Caller offered to speak with the nurse for assistance: YES Response: Patient offered to speak with nurse for assistance and patient agreed. Message forwarded to nurse. documented in this encounter Plan of Treatment Not on file documented as of this encounter Visit Diagnoses Not on filedocumented in this encounter Care Teams Biometrics Technician Relationship Specialty Start Date End Date Yolande Nicholas DO PCP - General Internal Medicine 12/03/18 10/08/20 Anuj Priest DO PCP - General Internal Medicine 10/09/[address] [place] [address], Pcp PCP - General Internal Medicine 06/17/21 documented as of this encounter
--- OUTSIDE RECORDS SUMMARY | 2024-09-16 08:37 | XMS_ITS | Encounter Summary ---
Author Organization [employer] Address [address] [facility] 7t [place] [address] Care Team Providers Care Yarn Dry Room Worker Name Role Phone Sesar Pereyra MD Primary Care Provider [phone] Encounter Details Date Type Department Care Team ([facility] Contact Info) Description 07/10/2024 Telephone [facility] MED & PEDS [address] [place], [place] [phone] Sesar Pereyra MD [address] [place] [address] Social History Tobacco Use Types Packs/Day Years [...] tablet was sent to the incorrect pharmacy. [facility] requested a transfer but was til to contact pcp office . Preferred pharmacy [id number] - [place], [place] - [address] [place] [address]. Pt [facility] has been without meds. documented in this encounter Plan of Treatment Not on file documented as of this encounter Visit Diagnoses Not on filedocumented in this encounter Additional Health Concerns Assessment Noted Time PHQ-9 Depression Total Score: 16 024 10:59 AM EDT documented as of this encounter Care Teams Yarn Dry Room Worker Relationship Specialty Start Date End Date Sesar Pereyra MD [address] [place] [address] PCP - General Internal Medicine 03/01/21 [facility] 03/22/24 documented as of this encounter
--- OUTSIDE RECORDS SUMMARY | 2024-09-16 08:37 | XMS_ITS | Encounter Summary ---
Author Organization [employer] Address [address] [facility] 7t [place] [address] Care Team Providers Care Bottoming Room Supervisor Name Role Phone Sesar Pereyra MD Primary Care Provider [phone] Reason for Visit * Reason Onset Date Comments Medication Question 06/21/2024 Encounter Details Date Type Department Care Team ([facility] st Contact Info) Description 06/21/2024 Telephone [facility] [address] [place] [address] Sesar Pereyra MD [address] [place], [place] [phone] Medication Question Social History Tobacco Use Types [...] to Discontinue the medication. Contact Conrad at [phone] Ext [phone] The Voicemail is private so you are able to Leave a message in there. documented in this encounter Plan of Treatment Not on file documented as of this encounter Visit Diagnoses Not on filedocumented in this encounter Additional Health Concerns Assessment Noted Time PHQ-9 Depression Total Score: 16 024 10:59 AM EDT documented as of this encounter Care Teams Bottoming Room Supervisor Relationship Specialty Start Date End Date Sesar Pereyra MD [address] [place] [address] PCP - General Internal Medicine 03/01/21 [facility] 03/[facility] documented as of this encounter
--- OUTSIDE RECORDS SUMMARY | 2024-09-16 08:37 | XMS_ITS | Encounter Summary ---
Author Organization [facility] Address [address] [place] [address] Care Team Providers Care Technical Solutions Consultant Name Role Phone Ghassan Burciaga MD Primary Care Provider Unavail able Pierre Arevalo MD Primary Care Provider Judy vailable Gerson Dawson MD Primary Care Provider Unavail able [facility], Pcp Primary Care Provider Unavailabl e Coleman Mccarthy MD Primary Care Provider Unavaila Ayo Demarco MD Primary Care Provider [phone] Annalee Jones MD Primary Care Provider Un available Pascual Nicholasabela DO Primary Care Pro vider Unavailable Anuj Priest DO Primary Care Provider Judy vailable [facility], Pcp Primary Care Provider Unavailabl e Encounter Details Date Type Department Care Team Description 01/16/2007 Hospital Medical Records [address] [place] [address] Tyler Bloom MD Social History Tobacco Use [...] on filedocumented in this encounter Care Teams Technical Solutions Consultant Relationship Specialty Start Date End Date Ghassan Burciaga MD PCP - General 07/24/00 05/06/13 Pierre Arevalo MD PCP - General Internal Medicine 05/07/13 4 Gerson Dawson MD PCP - General Internal Medicine 01/30/14 03/20/14 [facility], Pcp PCP - General Internal Medicine 03/21/14 05/06/14 Coleman Mccarthy MD PCP - General Internal Medicine 05/07/14 07/18/16 Ayo Carpio MD [address] [place], [place] [id number] PCP - General Internal Medicine 07/19/16 01/05/17 Annalee Jones MD [address] [place], [place] [id number] PCP - General Internal Medicine 01/06/17 12/02/18 Yolande Nicholas, DO [address] [place] [address] PCP - General Internal Medicine 12/03/18 10/08/20 Anuj Priest, [address] [place] [address] PCP - General Internal Medicine 10/09/20 06/16/21 [facility], Pcp PCP - General Internal Medicine 06/17/21 documented as of this encounter
--- OUTSIDE RECORDS SUMMARY | 2024-09-16 08:37 | XMS_ITS | Encounter Summary ---
Author Organization [facility] Address [address] [place] [address] Care Team Providers Care Hospital Intern Name Role Phone Yolande Nicholas DO Primary Care Pro vider Unavailable Anuj Priest DO Primary Care Provider [facility], Pcp Primary Care Provider Unavailabl e Reason for Visit * Reason Onset Date Comments Faxed Order 12/20/2019 [facility] Encounter Details Date Type Department Care Team Description 12/20/2019 Telephone Adult Medicine [address] [address] Yolande Nicholas DO Faxed Order ([facility]) [...] filedocumented in this encounter Care Teams Hospital Intern Relationship Specialty Start Date End Date Yolande Nicholas DO PCP - General Internal Medicine 12/03/18 10/08/20 Anuj Priest DO PCP - General Internal Medicine 10/09/20 2 [facility], Pcp PCP - General Internal Medicine 06/17/21 documented as of this encounter
--- OUTSIDE RECORDS SUMMARY | 2024-09-16 08:37 | XMS_ITS | Encounter Summary ---
Author Organization [employer] Address [address] [facility] 7t [place] [address] Care Team Providers Care Writing Tutor Name Role Phone Sesar Pereyra MD Primary Care Provider [phone] Reason for Visit * Reason Onset Date Comments Med Refill 04/28/2024 Encounter Details Date Type Department Care Team ([facility] st Contact Info) Description 04/28/2024 Refill [facility] CHC MED & PEDS [address] [place], [place] [phone] Sesar Pereyra MD [address] [place] [address] Social History Tobacco Use Types Packs/Day Years [...] documented as of this encounter Care Teams Writing Tutor Relationship Specialty Start Date End Date Sesar Pereyra MD [address] [place] [address] PCP - General Internal Medicine 03/01/21 [facility] documented as of this encounter
--- OUTSIDE RECORDS SUMMARY | 2024-09-16 08:37 | XMS_ITS | Encounter Summary ---
Author Organization [facility] Address [address] [place] [address] Care Team Providers Care It Security Administrator Name Role Phone Yolande Nicholas DO Primary Care Pro vider Unavailable Anuj Priest DO Primary Care Provider [facility], Pcp Primary Care Provider Unavailabl e Reason for Visit * Reason Comments E-prescribe Rx Request Encounter Details Date Type Department Care Team Description 01/01/2020 Refill Adult Medicine [address] [address] Alana Stinson MD [address] [place] [phone] E-prescribe Rx Request Social History Tobacco [...] on filedocumented in this encounter Care Teams It Security Administrator Relationship Specialty Start Date End Date Yolande Nicholas DO PCP - General Internal Medicine 12/03/18 10/08/20 Anuj Priest DO PCP - General Internal Medicine 10/09/20 2 [facility], Pcp PCP - General Internal Medicine 06/17/21 documented as of this encounter
--- OUTSIDE RECORDS SUMMARY | 2024-09-16 08:37 | XMS_ITS | Encounter Summary ---
Author Organization [facility] Address [address] [place] [address] Care Team Providers Care Certified Pesticide Applicator Name Role Phone Ghassan Burciaga MD Primary Care Provider Unavail able Pierre Arevalo MD Primary Care Provider Judy vailable Gerson Dawson MD Primary Care Provider Unavail able [facility], Pcp Primary Care Provider Unavailabl e Coleman Mccarthy MD Primary Care Provider Unavaila Ayo Demarco MD Primary Care Provider [phone] Annalee Jones MD Primary Care Provider Un available Pascual Nicholasabela DO Primary Care Pro vider Unavailable Anuj Priest DO Primary Care Provider Judy vailable [facility], Pcp Primary Care Provider Unavailabl e Encounter Details Date Type Department Care Team Description 04/30/2007 Hospital Medical Records [address] [place] [address] Anuj Easton Jr. [facility] [address] [place], [place] [phone] Social History Tobacco Use Types Packs/Day Years [...] on filedocumented in this encounter Care Teams Certified Pesticide Applicator Relationship Specialty Start Date End Date Ghassan Burciaga MD PCP - General 07/24/00 05/06/13 Pierre Arevalo MD PCP - General Internal Medicine 05/07/13 4 Gerson Dawson MD PCP - General Internal Medicine 01/30/14 03/20/14 [facility], Pcp PCP - General Internal Medicine 03/21/14 05/06/14 Coleman Mccarthy MD PCP - General Internal Medicine 05/07/14 07/18/16 Aoy Carpio MD [address] [place] [address] PCP - General Internal Medicine 07/19/16 01/05/17 Annalee Jones MD [address] [place] [address] PCP - General Internal Medicine 01/06/17 12/02/18 Yolande Nicholas, DO [address] [place] [address] PCP - General Internal Medicine 12/03/18 10/08/20 Anuj Priest, DO [address] [place] [address] PCP - General Internal Medicine 10/09/20 06/16/21 [facility], Pcp PCP - General Internal Medicine 06/17/21 documented as of this encounter
--- OUTSIDE RECORDS SUMMARY | 2024-09-16 08:37 | XMS_ITS | Encounter Summary ---
Author Organization [facility] Address [address] [place] [address] Care Team Providers Care Account Manager B2B Name Role Phone Yolande Nicholas DO Primary Care Pro vider Unavailable Anuj Priest DO Primary Care Provider [facility], Pcp Primary Care Provider Unavailabl e Reason for Visit * Reason Onset Date Comments Faxed Order 01/03/2020 Encounter Details Date Type Department Care Team Description 01/03/2020 Telephone Adult [address] [address] Yolande Nicholas DO Faxed Order Social History [...] on filedocumented in this encounter Care Teams Account Manager B2B Relationship Specialty Start Date End Date Yolande Nicholas DO PCP - General Internal Medicine 12/03/18 10/08/20 Anuj Priest DO PCP - General Internal Medicine 10/09/[address] [place] [address], Pcp PCP - General Internal Medicine 06/17/21 documented as of this encounter
--- OUTSIDE RECORDS SUMMARY | 2024-09-16 08:37 | XMS_ITS | Encounter Summary ---
Author [facility] Address [address] [place] [address] Care Team Providers Care Systems Accountant Name Role Phone Yolande Nicholas DO Primary Care Pro vider Unavailable Anuj Priest DO Primary Care Provider Judy Gardner, Pcp Primary Care Provider Unavailabl e Encounter Details Date Type Department Care Team Description 11/28/2019 Sales Service Promoter Report Medical Records [address] [place] [address] Cedrick Siddiqui Social History Tobacco Use Types [...] filedocumented in this encounter Care Teams Systems Accountant Relationship Specialty Start Date End Date Yolande Nicholas DO PCP - General Internal Medicine 12/03/18 10/08/20 Anuj Priest DO PCP - General Internal Medicine 10/09/20 2 J[facility], Pcp PCP - General Internal Medicine 06/17/21 documented as of this encounter
--- OUTSIDE RECORDS SUMMARY | 2024-09-16 08:37 | XMS_ITS | Encounter Summary ---
Author Organization [facility] Address [address] [place] [address] Care Team Providers Care Head Of Ethics And Compliance Name Role Phone Yolande Nicholas DO Primary Care Pro vider Unavailable Anuj Priest DO Primary Care Provider [facility], Pcp Primary Care Provider Unavailabl e Reason for Visit * Reason Comments E-prescribe Rx Request Encounter Details Date Type Department Care Team Description 01/24/2020 Refill Adult Medicine [address] [address] Alana Stinson MD [address] [place] [phone] E-prescribe Rx Request Social History Tobacco [...] - MEDICARE / Plan: MEDICARE FFS $5 HOSTETTER [id number] / Product Type: MEDICARE [id number] documented in this encounter Plan of Treatment Not on file documented as of this encounter Visit Diagnoses Not on filedocumented in this encounter Care Teams Head Of Ethics And Compliance Relationship Specialty Start Date End Date Yolande Nicholas DO PCP - General Internal Medicine 12/03/18 10/08/20 Anuj Priest DO PCP - General Internal Medicine 10/09/20 2 [facility], Pcp PCP - General Internal Medicine 06/17/21 documented as of this encounter
--- OUTSIDE RECORDS SUMMARY | 2024-09-16 08:37 | XMS_ITS | Encounter Summary ---
Author Organization [facility] Address [address] [place] [address] Care Team Providers Care Manufacturing Manager Name Role Phone Yolande Nicholas DO Primary Care Pro vider Unavailable Anuj Priest DO Primary Care Provider Judy Gardner, Pcp Primary Care Provider Unavailabl e Encounter Details Date Type Department Care Team Description 08/29/2019 SNF discharge summary Medical Records [address] [place] [address] Abstract, Provider Social History Tobacco Use Types [...] on filedocumented in this encounter Care Teams Manufacturing Manager Relationship Specialty Start Date End Date Yolande Nicholas DO PCP - General Internal Medicine 12/03/18 10/08/20 Anuj Priest DO PCP - General Internal Medicine 10/09/20 2 Jj, Pcp PCP - General Internal Medicine 06/17/21 documented as of this encounter
--- OUTSIDE RECORDS SUMMARY | 2024-09-16 08:37 | XMS_ITS | Encounter Summary ---
[facility] Address [address] [place] [address] Care Team Providers Care Stock Replenisher Name Role Phone Yolande Nicholas DO Primary Care Pro vider Unavailable Anuj Priest DO Primary Care Provider Judy Gardner, Pcp Primary Care Provider Unavailabl e Encounter Details Date Type Department Care Team Description 2020 [facility] Medical Records [address] [place] [address] Abstract, Provider Social History Tobacco Use Types [...] on filedocumented in this encounter Care Teams Stock Replenisher Relationship Specialty Start Date End Date Yolande Nicholas DO PCP - General Internal Medicine 12/03/18 10/08/20 Anuj Priest DO PCP - General Internal Medicine 10/09/20 2 J[facility], Pcp PCP - General Internal Medicine 06/17/21 documented as of this encounter
--- OUTSIDE RECORDS SUMMARY | 2024-09-16 08:37 | XMS_ITS | Encounter Summary ---
Author Organization [employer] Address 75 [facility] 7t [place] [address] Care Team Providers Care Finishing Technician Name Role Phone Sesar Pereyra MD Primary Care Provider [phone]- [phone] Encounter Details Date Type Department Care Team (Late st Contact Info) Description 07/10/2024 Orders Only [facility] [address] [place] [address] Sesar Pereyra MD [address] [place] [address] Memory disturbance (Primary Dx) Social History Tobacco [...] documented as of this encounter Care Teams Finishing Technician Relationship Specialty Start Date End Date Sesar Pereyra MD [address] [place] [address] PCP - General Internal Medicine 03/01/21 [facility] 03/22/24 documented as of this encounter
--- OUTSIDE RECORDS SUMMARY | 2024-09-16 08:37 | XMS_ITS | Encounter Summary ---
Author Organization [facility] Address [address] [place] [address] Care Team Providers Care Rating Clerk Name Role Phone Yolande Nicholas DO Primary Care Pro vider Unavailable Anuj Priest DO Primary Care Provider [facility], Pcp Primary Care Provider Unavailabl e Encounter Details Date Type Department Care Team Description 09/04/2019 Telephone Internal Medicine - [address], [address] [place] [address] Alana Stinson MD [address] [place] [phone] Social History Tobacco Use Types Packs/Day [...] AM EDT PLS GET DISCHARGE SUMMARY FROM [facility] [place], documented in this encounter Plan of Treatment Not on file documented as of this encounter Visit Diagnoses Not on filedocumented in this encounter Care Teams Rating Clerk Relationship Specialty Start Date End Date Yolande Nicholas DO PCP - General Internal Medicine 12/03/18 10/08/20 Anuj Priest DO PCP - General Internal Medicine 10/09/20 2 [facility], Pcp PCP - General Internal Medicine 06/17/21 documented as of this encounter
--- OUTSIDE RECORDS SUMMARY | 2024-09-16 08:37 | XMS_ITS | Encounter Summary ---
Author [facility] Address [address] [place] [address] Care Team Providers Care Tape Deck Installer Name Role Phone Yolande Nicholas DO Primary Care Pro vider Unavailable Anuj Priest DO Primary Care Provider Judy álvarez [facility], Pcp Primary Care Provider Unavailabl e Encounter Details Date Type Department Care Team Description 01/13/2020 Cell Pourer Report Medical Records [address] [place] [address] Carl Rai MD Social History Tobacco Use [...] on filedocumented in this encounter Care Teams Tape Deck Installer Relationship Specialty Start Date End Date Yolande Nicholas DO PCP - General Internal Medicine 12/03/18 10/08/20 Anuj Priest DO PCP - General Internal Medicine 10/09/20 Jj, Pcp PCP - General Internal Medicine 06/17/21 documented as of this encounter
--- OUTSIDE RECORDS SUMMARY | 2024-09-16 08:37 | XMS_ITS | Encounter Summary ---
Author Organization [facility] Address [address] [place] [address] Care Team Providers Care Dish Technician Name Role Phone Yolande Nicholas DO Primary Care Pro vider Unavailable Anuj Priest DO Primary Care Provider [facility], Pcp Primary Care Provider Unavailabl e Reason for Visit * Reason Onset Date Comments Faxed Order 01/14/2020 Encounter Details Date Type Department Care Team Description 01/14/2020 Telephone Adult [address] [address] Yolande Nicholas DO Faxed Order Social History [...] Dr. Yolande Gomez's signature - tracking # [id number], [id number], [id number], [id number] documented in this encounter Plan of Treatment Not on file documented as of this encounter Visit Diagnoses Not on filedocumented in this encounter Care Teams Dish Technician Relationship Specialty Start Date End Date Yolande Nicholas DO PCP - General Internal Medicine 12/03/18 10/08/20 Anuj Priest DO PCP - General Internal Medicine 10/09/20 2 [facility], Pcp PCP - General Internal Medicine 06/17/21 documented as of this encounter
--- OUTSIDE RECORDS SUMMARY | 2024-09-16 08:37 | XMS_ITS | Encounter Summary ---
Author Organization [employer] Address [address] [facility] 7t [place] [address] Care Team Providers Care Drill Press Operator Name Role Phone Sesar Pereyra MD Primary Care Provider [phone]- [phone] Encounter Details Date Type Department Care Team ([facility] st Contact Info) Description 04/29/2024 Orders Only [facility] MED & PEDS [address] [place], [place] [phone] Sesar Pereyra MD [address] [place] [address] Closed nondisplaced fracture of acromial end of [...] documented as of this encounter Care Teams Drill Press Operator Relationship Specialty Start Date End Date Sesar Pereyra MD [address] [place] [address] PCP - General Internal Medicine 03/01/21 [facility] 03/22/24 documented as of this encounter
--- OUTSIDE RECORDS SUMMARY | 2024-09-16 08:37 | XMS_ITS | Encounter Summary ---
Author Organization [employer] Address 75 [facility] 7t [place] [address] Care Team Providers Care Software Reverse Engineer Name Role Phone Sesar Pereyra MD Primary Care Provider [phone] Reason for Visit * Reason Onset Date Comments Med Refill 04/26/2024 Encounter Details Date Type Department Care Team ([facility] st Contact Info) Description 04/26/2024 Telephone [facility] [address] [place] [address] Sesar Pereyra MD [address] [place] [address] Med Refill Social History Tobacco Use Types [...] 7.5 MG tablet To be sent to: [facility] - [place], [place] - [address] [facility] [address] documented in this encounter Plan of Treatment Not on file documented as of this encounter Visit Diagnoses Not on filedocumented in this encounter Additional Health Concerns Assessment Noted Time PHQ-9 Depression Total Score: 16 024 10:59 AM EDT documented as of this encounter Care Teams Software Reverse Engineer Relationship Specialty Start Date End Date Sesar Pereyra MD [address] [place] [address] PCP - General Internal Medicine 03/01/21 [facility] 03/22/24 documented as of this encounter
--- OUTSIDE RECORDS SUMMARY | 2024-09-16 08:38 | XMS_ITS | Encounter Summary ---
Author Organization [facility] Address [address] [place] [address] Care Team Providers Care Repairer Finished Metal Name Role Phone Ayo Carpio MD Primary Care Provider [phone] Annalee Jones MD Primary Care Provider Un available Yolande Nicholas DO Primary Care Pro vider Unavailable Anuj Priest DO Primary Care Provider Judy [facility], Pcp Primary Care Provider Unavailabl e Encounter Details Date Type Department Care Team Description 10/19/2016 Orders Only Adult Medicine [address] [phone] Ayo Carpio MD [address] [place] [address] [id number] Lung nodule (Primary Dx) Social History Tobacco [...] nodule documented in this encounter Care Teams Repairer Finished Metal Relationship Specialty Start Date End Date Ayo Carpio MD [address] [place] [address] [id number] PCP - General Internal Medicine 07/19/16 01/05/17 Annalee Jones MD [address] [place] [address] PCP - General Internal Medicine 01/06/17 12/02/18 Yolande Nicholas, [address] [place] [address] PCP - General Internal Medicine 12/03/18 10/08/20 Anuj Priest DO [address] [place] [address] PCP - General Internal Medicine 10/09/20 06/16/21 [facility], Pcp [address] [place] [address] PCP - General Internal Medicine 06/17/21 documented as of this encounter
--- OUTSIDE RECORDS SUMMARY | 2024-09-16 08:38 | XMS_ITS | Encounter Summary ---
Author Organization [employer] [facility] Address [address] [place] [address] Care Team Providers Care Lye Bath Operator Name Role Phone Coleman Mccarthy MD Primary Care Provider Unavaila ble Ayo Carpio MD Primary Care Provider [phone] Annalee oJnes MD Primary Care Provider Un available Yolande Nicholas DO Primary Care Pro vider Unavailable Anuj Priest DO Primary Care Provider [facility], Pcp Primary Care Provider Unavailabl e Encounter Details Date Type Department Care Team Description 09/16/2015 SALES PRODUCT MANAGER/[employer] Report Medical Records [address] [place] [address] Abstract, Provider Social History Tobacco Use Types [...] on filedocumented in this encounter Care Teams Lye Bath Operator Relationship Specialty Start Date End Date Coleman Mccarthy MD PCP - General Internal Medicine 05/07/14 07/18/16 Ayo Carpio MD [address] [place] [phone] PCP - General Internal Medicine 07/19/16 01/05/17 Annalee Jones MD [address] [place] [address] PCP - General Internal Medicine 01/06/17 12/02/18 Yolande Nicholas, [address] [place] [address] PCP - General Internal Medicine 12/03/18 10/08/20 Anuj Priest DO [address] [place] [address] PCP - General Internal Medicine 10/09/20 06/16/21 [facility], Pcp [address] [place] [address] PCP - General Internal Medicine 06/17/21 documented as of this encounter
--- OUTSIDE RECORDS SUMMARY | 2024-09-16 08:38 | XMS_ITS | Encounter Summary ---
Author Organization [employer] Address [address] [facility] 7t [place] [address] Care Team Providers Care Mail Messenger Contractor Name Role Phone Sesar Pereyra MD Primary Care Provider [phone] Encounter Details Date Type Department Care Team ([facility] st Contact Info) Description 04/01/2024 Orders Only [facility] CHC MED & PEDS [address] [place], [place] 2021[address] Sesar Pereyra MD [address] [place] [address] Essential hypertension (Primary Dx) Social History Tobacco [...] documented as of this encounter Care Teams Mail Messenger Contractor Relationship Specialty Start Date End Date Sesar Pereyra MD [address] [place] [address] PCP - General Internal Medicine 03/01/21 [facility] 03/22/24 documented as of this encounter
--- OUTSIDE RECORDS SUMMARY | 2024-09-16 08:38 | XMS_ITS | Encounter Summary ---
Author Organization [facility] Address [address] [place] [address] Care Team Providers Care Extension Edger Name Role Phone Annalee Jones MD Primary Care Provider Un available Yolande Nicholas DO Primary Care Pro vider Unavailable Anuj Priest DO Primary Care Provider Judy [facility], Pcp Primary Care Provider Unavailabl e Encounter Details Date Type Department Care Team Description 11/15/2017 Refill Adult Medicine [address] [address] Annalee Jones MD Social History Tobacco Use [...] MG tablet [Annalee Jones MD] Preferred pharmacy: [facility] - [facility] [place] - [address] [facility] [address] AT Comment: would like a refill of 10 tablets of 20Mg Lisinopril Alex Nettles [address] [facility] [place] documented in this encounter Plan of Treatment Not on file documented as of this encounter Visit Diagnoses Not on filedocumented in this encounter Care Teams Extension Edger Relationship Specialty Start Date End Date Annalee Jones MD PCP - General Internal Medicine 01/06/17 9 Yolande Nicholas DO PCP - General Internal Medicine 12/03/18 10/08/20 Anuj Priest DO PCP - General Internal Medicine 10/09/20 2 [facility], Pcp PCP - General Internal Medicine 06/17/21 documented as of this encounter
--- OUTSIDE RECORDS SUMMARY | 2024-09-16 08:38 | XMS_ITS | Encounter Summary ---
Author Organization [facility] Address [address] [place] [address] Care Team Providers Care Certified Athletic Trainer Name Role Phone Ghassan Burciaga MD Primary Care Provider Unavail able Pierre Arevalo MD Primary Care Provider Judy vailable Gerson Dawson MD Primary Care Provider Unavail able [facility], Pcp Primary Care Provider Unavailabl e Coleman Mccarthy MD Primary Care Provider Unavaila Ayo Demarco MD Primary Care Provider [phone] Annalee Jones MD Primary Care Provider Un available Pascual Nicholasabela DO Primary Care Pro vider Unavailable Anuj Priest DO Primary Care Provider [facility], Pcp Primary Care Provider Unavailabl e Encounter Details Date Type Department Care Team Description 01/27/2009 Hospital Medical Records [address] [place] [address] Bacilio Ward MD Social History Tobacco Use [...] filedocumented in this encounter Care Teams Certified Athletic Trainer Relationship Specialty Start Date End Date Ghassan Burciaga MD PCP - General 07/24/00 05/06/13 Pierre Arevalo MD PCP - General Internal Medicine 05/07/13 4 Gerson Dawson MD PCP - General Internal Medicine 01/30/14 03/20/14 [facility], Pcp PCP - General Internal Medicine 03/21/14 05/06/14 Coleman Mccarthy MD PCP - General Internal Medicine 05/07/14 07/18/16 Ayo Carpio MD [address] [place], [place] [phone] PCP - General Internal Medicine 07/19/16 01/05/17 Annalee Jones MD [address] [place], [place] [phone] PCP - General Internal Medicine 01/06/17 12/02/18 Yolande Nicholas, DO [address] [place] [address] PCP - General Internal Medicine 12/03/18 10/08/20 Anuj Priest, [address] [place] [address] PCP - General Internal Medicine 10/09/20 06/16/21 [facility], Pcp PCP - General Internal Medicine 06/17/21 documented as of this encounter
--- OUTSIDE RECORDS SUMMARY | 2024-09-16 08:38 | XMS_ITS | Encounter Summary ---
Author Organization [employer] Address [address] [facility] 7t [place] [address] Care Team Providers Care Motion Picture Director Name Role Phone Sesar Pereyra MD Primary Care Provider [phone] Reason for Visit * Reason Onset Date Comments Med Refill 04/11/2024 Encounter Details Date Type Department Care Team (Late st Contact Info) Description 04/11/[address] [facility] [address] [place] [address] Natasha Jiang MD [address] [place] [address] Closed nondisplaced fracture of acromial end of [...] documented as of this encounter Care Teams Motion Picture Director Relationship Specialty Start Date End Date Sesar Pereyra MD [address] [place] [address] PCP - General Internal Medicine 03/01/21 [facility] 03/22/24 documented as of this encounter
--- OUTSIDE RECORDS SUMMARY | 2024-09-16 08:38 | XMS_ITS | Encounter Summary ---
Author Organization [employer] Address [address] [facility] 7t [place] [address] Care Team Providers Care Data Management Analyst Name Role Phone Sesar Pereyra MD Primary Care Provider [phone]- [phone] Reason for Visit * Reason Onset Date Comments Med Refill 08/08/2024 Encounter Details Date Type Department Care Team (Late st Contact Info) Description 08/08/2024 Telephone [facility] [address] [place] [address] Sesar Pereyra MD [address] [place] [address] Med Refill Social History Tobacco Use Types [...] 0.5 MG tablet To be sent to: [facility] - [facility] [place] - [address] [place] [address] STEET documented in this encounter Plan of Treatment Not on file documented as of this encounter Visit Diagnoses Not on filedocumented in this encounter Additional Health Concerns Assessment Noted Time PHQ-9 Depression Total Score: 6 07/25/19 25 3:22 PM EDT documented as of this encounter Care Teams Data Management Analyst Relationship Specialty Start Date End Date Sesar Pereyra MD [address] [place] [address] [place] [address] PCP - General Internal Medicine 03/01/21 [facility] 03/22/24 documented as of this encounter
--- OUTSIDE RECORDS SUMMARY | 2024-09-16 08:38 | XMS_ITS | Encounter Summary ---
Author Organization [employer] Address 75 [facility] 7t [place] [address] Care Team Providers Care Curam Developer Name Role Phone Sesar Pereyra MD Primary Care Provider [phone]- [phone] Reason for Visit * Reason Onset Date Comments Med Refill 04/02/2024 Encounter Details Date Type Department Care Team (Late st Contact Info) Description 04/02/2024 Telephone [facility] [address] [place] [address] Sesar Pereyra MD [address] [place] [address] Med Refill Social History Tobacco Use Types [...] 9:39 AM EST Medication was sent to [facility] on 04/01/24 #30 with 11 refills. * Telephone Encounter - Miri Young - 04/02/2024 9:33 AM EST TC from pt requesting medication refill. Medications needing refill : metoprolol tartrate (Lopressor) 25 MG tablet To be sent to: [facility] documented in this encounter Plan of Treatment Not on file documented as of this encounter Visit Diagnoses Not on filedocumented in this encounter Additional Health Concerns Assessment Noted Time PHQ-9 Depression Total Score: 16 024 10:59 AM EDT documented as of this encounter Care Teams Curam Developer Relationship Specialty Start Date End Date Sesar Pereyra MD [address] [place] [address] PCP - General Internal Medicine 03/01/21 [facility] 03/22/24 documented as of this encounter
--- OUTSIDE RECORDS SUMMARY | 2024-09-16 08:38 | XMS_ITS | Clinical Summary ---
Author Organization [facility] Address [address] [place] [address] Care Team Providers Care Sanitation Worker Hosing Machinery Name Role Phone Nuha Galvin PA-C Primary Care Provider [phone] Source Comments PLEASE NOTE, if this patient [...] Date Sleep disorder 02/02/2015 Overview (02/02/2015): Saw [facility] and sleep on 01/15/2015: Dr. Johnson [...] once a year. In remission Seen at [facility] urology Depression with anxiety 04/01/2014 Overview (04/01/2014): Dr. Pradhan at [facility]. Is going to establish care at a new facility. 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 Hensley in 2006. Sees this doctor once a year at [facility]. Follows up with this facility every 6 months. 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. 4.[address] [...] INFLUENZA, SEASONAL, INJECTABLE 02/02/2015,04/15 PNEUMOCOCCAL POLYSACCHARIDE PPV23 (Pneumovax 23) 02/19/2015,04/15/2014 Zoster, Live Vaccine (Zostavax) 07/11/2014 Social History [...] SAFETY NET MEDICARE - [place] Care Teams Sanitation Worker Hosing Machinery Relationship Specialty Start Date End Date Nuha Galvin PA-C [address] [place] [address] PCP - General 03/21/18
--- OUTSIDE RECORDS SUMMARY | 2024-09-16 08:38 | XMS_ITS | Encounter Summary ---
Author Organization [facility] [employer] [facility] Address [address] [place] [address] Care Team Providers Care Special Assemblies Supervisor Name Role Phone Ayo Carpio MD Primary Care Provider [phone] Annalee Jones MD Primary Care Provider Un available Yolande Nicholas DO Primary Care Pro vider Unavailable Anuj Priest DO Primary Care Provider Judy [facility], Pcp Primary Care Provider Unavailabl e Encounter Details Date Type Department Care Team Description 12/13/2016 Consignee Report Medical Records [address] [place] [address] Dhruv Garcia MD Social History Tobacco Use [...] filedocumented in this encounter Care Teams Special Assemblies Supervisor Relationship Specialty Start Date End Date Ayo Carpio MD [address] [place] [address] PCP - General Internal Medicine 07/19/16 01/05/17 Annalee Jones MD [address] [place] [address] PCP - General Internal Medicine 01/06/17 12/02/18 Yolande Nicholas, DO [address] [place] [address] PCP - General Internal Medicine 12/03/18 10/08/20 Anuj Priest, [address] [place] [address] PCP - General Internal Medicine 10/09/20 06/16/21 [facility], [address] [address] PCP - General Internal Medicine 06/17/21 documented as of this encounter
--- OUTSIDE RECORDS SUMMARY | 2024-09-16 08:38 | XMS_ITS | Encounter Summary ---
Author Organization [facility] Address [address] [place] [address] Care Team Providers Care Maintenance Instructor Name Role Phone Annalee Jones MD Primary Care Provider Un available Yolande Nicholas DO Primary Care Pro vider Unavailable Anuj Priest DO Primary Care Provider Judy vailable [facility], Pcp Primary Care Provider Unavailabl e Encounter Details Date Type Department Care Team Description 02/07/2017 Loss Control Engineer Report Medical Records [address] [place] [address] Dhruv Garcia MD Social History Tobacco Use [...] filedocumented in this encounter Care Teams Maintenance Instructor Relationship Specialty Start Date End Date Annalee Jones MD PCP - General Internal Medicine 01/06/17 9 Yolande Nicholas DO PCP - General Internal Medicine 12/03/18 10/08/20 Anuj Priest DO PCP - General Internal Medicine 10/09/20 2 Jj, Pcp PCP - General Internal Medicine 06/17/21 documented as of this encounter
--- OUTSIDE RECORDS SUMMARY | 2024-09-16 08:38 | XMS_ITS | Encounter Summary ---
Author Organization [employer] Address [address] [facility] [address] [place] [address] Care Team Providers Care Application Tester Name Role Phone Sesar Pereyra MD Primary Care Provider [phone] Encounter Details Date Type Department Care Team (Late st Contact Info) Description 04/02/2024 Orders Only [facility] [address] [place] [address] Provider, MD Jazmyn Social History Tobacco Use [...] on file documented as of this encounter Procedures Procedure [...] documented as of this encounter Care Teams Application Tester Relationship Specialty Start Date End Date Sesar Pereyra MD [address] [place] [address] PCP - General Internal Medicine 03/01/21 [facility] 03/22/24 documented as of this encounter
--- OUTSIDE RECORDS SUMMARY | 2024-09-16 08:38 | XMS_ITS | Encounter Summary ---
Author Organization [employer] Address [address] [facility] 7[address] [place] [address] Care Team Providers Care Electrical Design Technician Name Role Phone Sesar Pereyra MD Primary Care Provider [phone] Encounter Details Date Type Department Care Team (Late st Contact Info) Description 06/24/2024 Orders Only [facility] [address] [place] [address] Sesar Pereyra MD [address] [place] [address] Paroxysmal atrial fibrillation (CMS/HCC) (Primary Dx) Social [...] documented as of this encounter Care Teams Electrical Design Technician Relationship Specialty Start Date End Date Sesar Pereyra MD [address] [place] [address] PCP - General Internal Medicine 03/01/21 [facility]24 documented as of this encounter
--- OUTSIDE RECORDS SUMMARY | 2024-09-16 08:38 | XMS_ITS | Encounter Summary ---
Author Organization [facility] [facility] Address [address] [place] [address] Care Team Providers Care Dental Treatment Coordinator Name Role Phone Coleman Mccarthy MD Primary Care Provider Unavaila ble Ayo Carpio MD Primary Care Provider [phone] Annalee Jones MD Primary Care Provider Un available Yolande Nicholas DO Primary Care Pro vider Unavailable Anuj Priest DO Primary Care Provider [facility], Pcp Primary Care Provider Unavailabl e Encounter Details Date Type Department Care Team Description 07/30/2014 [facility] Report Medical Records [address] [place] [address] Abstract, Provider Social History Tobacco Use Types [...] filedocumented in this encounter Care Teams Dental Treatment Coordinator Relationship Specialty Start Date End Date Coleman Mccarthy MD PCP - General Internal Medicine 05/07/14 07/18/16 Ayo Carpio MD [address] [place] [address] [phone] PCP - General Internal Medicine 07/19/16 01/05/17 Annalee Jones MD [address] [place] [address] PCP - General Internal Medicine 01/06/17 12/02/18 Yolande Nicholas, [address] [place] [address] PCP - General Internal Medicine 12/03/18 10/08/20 Anuj Priest DO [address] [place] [address] PCP - General Internal Medicine 10/09/20 06/16/21 [facility], Pcp [address] [place] [address] PCP - General Internal Medicine 06/17/21 documented as of this encounter
--- OUTSIDE RECORDS SUMMARY | 2024-09-16 08:38 | XMS_ITS | Encounter Summary ---
Author Organization [facility] [facility] Address [address] [place] [address] Care Team Providers Care Quality Assurance Supervisor Body Name Role Phone Ayo Carpio MD Primary Care Provider [phone] Annalee Jones MD Primary Care Provider Un available Yolande Nicholas DO Primary Care Pro vider Unavailable Anuj Priest DO Primary Care Provider Judy [facility], Pcp Primary Care Provider Unavailabl e Encounter Details Date Type Department Care Team Description 10/06/2016 Glass Smoother Report Medical Records [address] [place] [address] Anuj Easton Social History Tobacco Use Types [...] on filedocumented in this encounter Care Teams Quality Assurance Supervisor Body Relationship Specialty Start Date End Date Ayo Carpio MD [address] [place] [address] PCP - General Internal Medicine 07/19/16 01/05/17 Annalee Jones MD [address] [place] [address] PCP - General Internal Medicine 01/06/17 12/02/18 Yolande Nicholas, [address] [place] [address] PCP - General Internal Medicine 12/03/18 10/08/20 Anuj Priest, [address] [place] [address] PCP - General Internal Medicine 10/09/20 06/16/21 [facility], Pcp [address] [place] [address] PCP - General Internal Medicine 06/17/21 documented as of this encounter
--- OUTSIDE RECORDS SUMMARY | 2024-09-16 08:38 | XMS_ITS | Encounter Summary ---
Author Organization [facility] Address [address] [place] [address] Care Team Providers Care Bleach Boiler Filler Name Role Phone Annalee Jones MD Primary Care Provider Un available Yolande Nicholas DO Primary Care Pro vider Unavailable Anuj Priest DO Primary Care Provider Judy [facility], Pcp Primary Care Provider Unavailabl e Encounter Details Date Type Department Care Team Description 11/14/2017 Pt. Non Urgent Medic al Question Adult Medicine [address] [address] Annalee Jones MD Social History Tobacco Use [...] of sildenafil 20Mg 10 Qty. Sent to [facility] y [address] [facility] [address] Tele [phone] documented in this encounter Plan of Treatment Not on file documented as of this encounter Visit Diagnoses Not on filedocumented in this encounter Care Teams Bleach Boiler Filler Relationship Specialty Start Date End Date Annalee Jones MD PCP - General Internal Medicine 01/06/17 9 Yolande Nicholas DO PCP - General Internal Medicine 12/03/18 10/08/20 Anuj Priest DO PCP - General Internal Medicine 10/09/20 2 [facility], Pcp PCP - General Internal Medicine 06/17/21 documented as of this encounter
--- OUTSIDE RECORDS SUMMARY | 2024-09-16 08:38 | XMS_ITS | Encounter Summary ---
Author Organization [facility] Address [address] [place] [address] Care Team Providers Care Wood Filler Name Role Phone Yolande Nicholas DO Primary Care Pro vider Unavailable Anuj Priest DO Primary Care Provider [facility], Pcp Primary Care Provider Unavailabl e Reason for Visit * Reason Onset Date Comments Faxed Order 08/25/2020 Encounter Details Date Type Department Care Team Description 08/25/2020 Telephone Adult [address] [address] Yolande Nicholas DO Faxed Order Social History [...] TO BE SIGN AND FAX BACK TO [phone]. documented in this encounter Plan of Treatment Not on file documented as of this encounter Visit Diagnoses Not on filedocumented in this encounter Care Teams Wood Filler Relationship Specialty Start Date End Date Yolande Nicholas DO PCP - General Internal Medicine 12/03/18 10/08/20 Anuj Priest DO PCP - General Internal Medicine 10/09/20 2 [facility], Pcp PCP - General Internal Medicine 06/17/21 documented as of this encounter
--- OUTSIDE RECORDS SUMMARY | 2024-09-16 08:38 | XMS_ITS | Encounter Summary ---
Author Organization [employer] [facility] Address [address] [place] [address] Care Team Providers Care Topology Professor Name Role Phone Ghassan Burciaga MD Primary Care Provider Unavail able Pierre Arevalo MD Primary Care Provider Judy vailable Gerson Dawson MD Primary Care Provider [facility]ail [facility], Pcp Primary Care Provider Unavailabl e Coleman Mccarthy MD Primary Care Provider Unavaila Ayo Demarco MD Primary Care Provider [phone] Annalee Jones MD Primary Care Provider Un available Pascual Nicholasabela DO Primary Care Pro vider Unavailable Anuj Priest DO Primary Care Provider Judy vailable [facility], Pcp Primary Care Provider Unavailabl e Encounter Details Date Type Department Care Team Description 02/02/2009 Hospital Medical Records [address] [place] [address] Bacilio Ward MD Social History Tobacco Use [...] on filedocumented in this encounter Care Teams Topology Professor Relationship Specialty Start Date End Date Ghassan Burciaga MD PCP - General 07/24/00 05/06/13 Pierre Arevalo MD PCP - General Internal Medicine 05/07/13 4 Gerson Dawson MD PCP - General Internal Medicine 01/30/14 03/20/14 [facility], Pcp PCP - General Internal Medicine 03/21/14 05/06/14 Coleman Mccarthy MD PCP - General Internal Medicine 05/07/14 07/18/16 Ayo Carpio MD [address] [place], [place] [phone] PCP - General Internal Medicine 07/19/16 01/05/17 Annalee Jones MD [address] [place], [place] [phone] PCP - General Internal Medicine 01/06/17 12/02/18 Yolande Nicholas, DO [address] [place] [address] PCP - General Internal Medicine 12/03/18 10/08/20 Anuj Priest, [address] [place] [address] PCP - General Internal Medicine 10/09/20 06/16/21 [facility], Pcp PCP - General Internal Medicine 06/17/21 documented as of this encounter
--- OUTSIDE RECORDS SUMMARY | 2024-09-16 08:38 | XMS_ITS | Encounter Summary ---
Author Organization [facility] [facility] Address [address] [place] [address] Care Team Providers Care Medical Detail Representative Name Role Phone Ayo Carpio MD Primary Care Provider [phone] Annalee Jones MD Primary Care Provider Un available Yolande Nicholas DO Primary Care Pro vider Unavailable Anuj Priest DO Primary Care Provider Judy [facility], Pcp Primary Care Provider Unavailabl e Reason for Visit * Reason Onset Date Comments hospital follow up 10/14/2016 Encounter Details Date Type Department Care Team Description 10/14/2016 Telephone Adult Medicine [address] [phone] Ayo Carpio MD [address] [place] [address] [phone] hospital follow up Social History Tobacco Use [...] Pt to see 10/21 at 1:[address] [facility] f/u . * Telephone Encounter - Bertha Ernandez - 10/17/2016 1:41 PM EDT Pt returning call, pt has a bad phone, please call Patient today at this number [phone] * Telephone Encounter - Minerva Kan R.N. [...] appointment needed Hospital patient was treated at: [facility] Was this only an ER visit [...] filedocumented in this encounter Care Teams Medical Detail Representative Relationship Specialty Start Date End Date Ayo Carpio MD [address] [place] [address] PCP - General Internal Medicine 07/19/16 01/05/17 Annalee Jones MD [address] [place] [address] PCP - General Internal Medicine 01/06/17 12/02/18 Yolande Nicholas DO [address] [place] [address] PCP - General Internal Medicine 12/03/18 10/08/20 Anuj Priest DO [address] [place] [address] PCP - General Internal Medicine 10/09/20 06/16/21 [facility], Jose G [address] [place] [address] PCP - General Internal Medicine 06/17/21 documented as of this encounter
--- OUTSIDE RECORDS SUMMARY | 2024-09-16 08:38 | XMS_ITS | Encounter Summary ---
Author Organization [employer] [facility] Address [address] [place] [address] Care Team Providers Care Manager Cafe Name Role Phone Coleman Mccarthy MD Primary Care Provider Unavaila ble Ayo Carpio MD Primary Care Provider [phone] Annalee Jones MD Primary Care Provider Un available Yolande Nicholas DO Primary Care Pro vider Unavailable Anuj Priest DO Primary Care Provider [facility], Pcp Primary Care Provider Unavailabl e Encounter Details Date Type Department Care Team Description 05/19/2015 Puppy Trainer Report Medical Records [address] [place] [address] Anuj Easton Social History Tobacco Use Types [...] filedocumented in this encounter Care Teams Manager Cafe Relationship Specialty Start Date End Date Coleman Mccarthy MD PCP - General Internal Medicine 05/07/14 07/18/16 Ayo Carpio MD [address] [place] [address] [phone] PCP - General Internal Medicine 07/19/16 01/05/17 Annalee Jones MD [address] [place] [address] PCP - General Internal Medicine 01/06/17 12/02/18 Yolande Nicholas, [address] [place] [address] PCP - General Internal Medicine 12/03/18 10/08/20 Anuj Priest DO [address] [place] [address] PCP - General Internal Medicine 10/09/20 06/16/21 [facility], Pcp [address] [place] [address] PCP - General Internal Medicine 06/17/21 documented as of this encounter
--- OUTSIDE RECORDS SUMMARY | 2024-09-16 08:38 | XMS_ITS | Encounter Summary ---
Author Organization [facility] [employer] [facility] Address [address] [place] [address] Care Team Providers Care Differential Tester Name Role Phone Ayo Carpio MD Primary Care Provider Annalee Jones MD Primary Care Provider Un available Yolande Nicholas DO Primary Care Pro vider Unavailable Anuj Priest DO Primary Care Provider Judy [facility], Pcp Primary Care Provider Unavailabl e Encounter Details Date Type Department Care Team Description 11/28/2016 SCAN Medical Records [address] [place] [address] Abstract, Provider Social History Tobacco Use Types [...] on filedocumented in this encounter Care Teams Differential Tester Relationship Specialty Start Date End Date Ayo Carpio MD [address] [place] [address] [phone] PCP - General Internal Medicine 07/19/16 01/05/17 Annalee Jones MD [address] [place] [address] PCP - General Internal Medicine 01/06/17 12/02/18 Yolande Nicholas, [address] [place] [address] PCP - General Internal Medicine 12/03/18 10/08/20 Anuj Priest DO [address] [place] [address] PCP - General Internal Medicine 10/09/20 06/16/21 [facility], Pcp [address] [place], [place] [phone] PCP - General Internal Medicine 06/17/21 documented as of this encounter
--- OUTSIDE RECORDS SUMMARY | 2024-09-16 08:38 | XMS_ITS | Encounter Summary ---
Author Organization [facility] Address [address] [place] [address] Care Team Providers Care Refinery Technician Name Role Phone Annalee Jones MD Primary Care Provider Un available Yolande Nicholas DO Primary Care Pro vider Unavailable Anuj Priest DO Primary Care Provider Judy [facility], Pcp Primary Care Provider Unavailabl e Reason for Visit * Reason Onset Date Comments Faxed Order 11/22/2017 Encounter Details Date Type Department Care Team Description 11/22/2017 Telephone Adult [address] [address] Annalee Jones MD Faxed Order Social History [...] Villarreal Fidel - 11/22/2017 3:57 PM EDT [employer] IS FAXING A PRE AUTH FOR sildenafil (VIAGRA) 100 MG tablet. PAPER WORK PUT IN DR COSMO MENDEZ. [facility] TEL [phone] FAX documented in this encounter Plan of Treatment Not on file documented as of this encounter Visit Diagnoses Not on filedocumented in this encounter Care Teams Refinery Technician Relationship Specialty Start Date End Date Annalee Jones MD PCP - General Internal Medicine 01/06/17 9 Yolande Nicholas DO PCP - General Internal Medicine 12/03/18 10/08/20 Anuj Priest DO PCP - General Internal Medicine 10/09/20 2 [facility], Pcp PCP - General Internal Medicine 06/17/21 documented as of this encounter
--- OUTSIDE RECORDS SUMMARY | 2024-09-16 08:38 | XMS_ITS | Encounter Summary ---
Author Organization [facility] Address [address] [place] [address] Care Team Providers Care Adobe Layer Name Role Phone Yolande Nicholas DO Primary Care Pro vider Unavailable Anuj Priest DO Primary Care Provider [facility], Pcp Primary Care Provider Unavailabl e Encounter Details Date Type Department Care Team Description 06/26/2020 Pt. Non Urgent Medic al Question Adult Medicine [address] [address] Yolande Nicholas DO Social History Tobacco Use [...] Sent: 06/26/2020 8:37 AM EST Subject: referal [facility] 0ccupational therapy Lymphadema diagnosis for a referal [id number] Alex Nettles 1945 documented in this encounter Plan of Treatment Not on file documented as of this encounter Visit Diagnoses Not on filedocumented in this encounter Care Teams Adobe Layer Relationship Specialty Start Date End Date Yolande Nicholas DO PCP - General Internal Medicine 12/03/18 10/08/20 Anuj Priest DO PCP - General Internal Medicine 10/09/20 2 [facility], Pcp PCP - General Internal Medicine 06/17/21 documented as of this encounter
--- OUTSIDE RECORDS SUMMARY | 2024-09-16 08:38 | XMS_ITS | Clinical Summary ---
Author Organization [email or web address] Address [address] [facility] [address] [place] [address] Care Team Providers Care Crystal Mounter Name Role Phone Sesar Pereyra MD Primary Care Provider Allergies No known active allergies Medications gabapentin (Neurontin) 100 MG capsule 03/11/20 23 Active QUEtiapine (SEROquel) 25 MG tablet 05/24/19 24 Active sertraline (Zoloft) 50 MG tablet 05/18/19 24 Active metoprolol tartrate (Lopressor) 25 MG tabletIndication s:Essential hypertension Take 0.5 tablets (12.5 mg) by mouth 2 times daily. 30 tablet 11 04/14/20 24 025 Active Eliquis 5 MG tabletIndication s:Longstanding persistent atrial fibrillation (CMS/HCC) TAKE ONE TABLET BY MOUTH EVERY 12 HOURS 60 tablet 5 04/30/20 24 Active cilostazol (Pletal) 50 MG tabletIndication s:PVD (peripheral vascular disease) (CMS/HCC) TAKE ONE TABLET BY MOUTH TWICE A DAY 60 tablet 5 04/30/20 24 Active tamsulosin (Flomax) 0.4 MG 24 hr capsule Take 1 capsule (0.4 mg) by mouth Once per day. 30 capsule 2 05/07/19 25 Active aspirin (Aspirin Low Dose) 81 MG EC tabletIndication s:Primary hypertension Take 1 tablet (81 mg) by mouth Once per day. 30 tablet 5 05/23/19 25 Active atorvastatin (Lipitor) 80 MG tabletIndication s:Hypercholester olemia Take 1 tablet (80 mg) by mouth [...] needed for severe pain. 06/24/19 25 Active amphetamine-dext roamphetamine (Adderall) 7.5 MG tabletIndication s:Memory disturbance Take 1 tablet (7.5 mg) by mouth Once per day. 28 tablet 08/13/19 25 Active clonazePAM (KlonoPIN) 0.5 MG tablet Take 1 tablet (0.5 mg) by mouth 2 times daily. 60 tablet 08/13/19 25 Active docusate sodium (Colace) 100 MG capsule TAKE 1 CAPSULE BY MOUTH two (2) times a day 60 capsule 1 09/04/19 25 Active Multaq 400 MG tabletIndication s:Paroxysmal atrial fibrillation (CMS/HCC) TAKE 1 TABLET BY MOUTH two (2) times a day WITH BREAKFAST AND EVENING meal 60 tablet 09/05/19 25 Active melatonin 3 MG tabletIndication s:Primary insomnia TAKE 1 TABLET BY MOUTH AT BEDTIME 30 tablet 09/05/19 25 Active docusate sodium (Colace) 100 MG capsule TAKE 1 CAPSULE BY MOUTH TWICE A DAY (BUBBLE-MATHEUS) 56 capsule 5 02/06/20 24 025 Discontinued melatonin 3 MG tabletIndication s:Primary insomnia TAKE 1 TABLET BY MOUTH AT BEDTIME 30 tablet 08/06/19 25 025 Discontinued Multaq 400 MG tabletIndication s:Paroxysmal atrial fibrillation (CMS/HCC) TAKE 1 TABLET BY MOUTH two (2) times a day (WITH BREAKFAST AND EVENING A MEAL) 60 tablet 08/06/19 25 025 Discontinued Active Problems Problem Noted Date Diagnosed Date [...] considered Sleep disorder 02/02/2015 Overview (01/22/2024): Saw [facility] and sleep on 01/15/2015: Dr. Johnson Likely DILLAN sleep study ordered. Given that he has RLS, He may have periodic limb movement disorder which can be checked for in the study. Check ferritin. Will await sleep study. Depression with anxiety 04/01/2014 Overview (06/16/2022): Dr. Pradhan at [facility]. Is going to establish care [...] Sees this doctor once a year at [facility]. 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 07/14/2005 Overview (01/22/2024): Stent on right and fem- fem bypass on left IMO update Depressive disorder 07/14/2005 Alcohol abuse, in remission 06/19/2005 Encounters Date Type Department Care Team Description 09/11/2024 Telephone [facility] [address] [place] [address] Sesar Pereyra MD fy 09/09/2024 Orders Only GENERIC EXTERNAL DATA DEPARTMENT Provider, Generic External Data 09/04/2024 Telephone [facility] [address] [place] [address] Sesar Pereyra MD Nurse Triage 09/03/2024 Refill [facility] [address] [place], [place] [phone] Sesar Pereyra MD Paroxysmal atrial fibrillation (CMS/HCC); Primary insomnia 09/02/2024 Telephone [facility] [address] [place] [address] Sesar Pereyra MD fyi 09/02/2024 Refill [facility] [address] [place] [address] Sesar Pereyra MD 08/26/2024 Orders Only GENERIC EXTERNAL DATA DEPARTMENT Provider, Generic External Data 08/26/2024 Telephone [facility] [address] [place] [phone] Sesar Pereyra MD Follow-up 08/12/2024 Refill [facility] [address] [place] [address] Loyda Jacobson, CLAUDIA 08/12/2024 Refill [facility] [address] [place] [phone] Sesar Pereyra MD Memory disturbance 08/08/2024 Telephone [facility] [address] [place] [address] Loyda Jacobson, RN Med Refill 08/08/2024 Telephone [facility] [address] [place] [phone] Sesar Pereyra MD Med Refill 08/07/2024 Telephone [facility] [address] [place] [phone] Sesar Pereyra MD PSG ORDER 08/02/2024 Refill [facility] [address] [place] [address] Sesar Pereyra MD Primary insomnia; Paroxysmal atrial fibrillation (CMS/HCC) 08/02/2024 Telephone [facility] [address] [place] [address] Sesar Pereyra MD Results 08/01/2024 Orders Only [facility] [address] [place] [address] Sesar Pereyra MD Sleep disorder (Primary Dx); Snoring 07/24/2024 2:15 PM EDT Office Visit [facility] [address] [place] [address] Sesar Pereyra MD Multifocal pneumonia (Primary Dx); Dislocation of left ulnohumeral joint, initial encounter; Essential hypertension; Dietary counseling; Exercise counseling; Class 1 obesity due to excess calories with serious comorbidity and body mass index (BMI) of 32.0 to 32.9 in adult 07/24/2024 Travel 07/22/[address] [address] Sesar Pereyra MD ER Follow-up 07/11/2024 Orders Only GENERIC EXTERNAL DATA DEPARTMENT Provider, Generic External Data 07/10/2024 Orders Only [address] [address] Sesar Pereyra MD Memory disturbance (Primary Dx) 07/10/2024 Telephone [facility] [address] [place], [place] [phone] Sesar Pereyra MD 07/09/2024 Telephone [facility] [address] [place], [place] [phone] Gracie Jewell RN NTTS OUTREACT CALL 07/04/[address] [address] Sesar Pereyra MD 06/24/2024 Orders Only [address] [address] Sesar Pereyra MD Paroxysmal atrial fibrillation ([facility]/HCC) (Primary Dx) 06/21/[address] [address] Sesar Pereyra MD Medication Question 06/19/2024 Orders Only GENERIC EXTERNAL DATA DEPARTMENT Provider, Generic External Data from Last 3 Months Immunizations Immunization Administration Dates Next Due DTaP, Unspecified 08/01/2003 [...] 07/24/2024 2:42 PM EDT Plan of Treatment Health Maintenance Due Date Last Done Comments RSV Patients and Patients Aged 60 years or older (1 - 1-dose 75+ series) 2022 COVID-19 Vaccine ( season) 2024 02/22/2024, 03/15/2023, 02/02/2022, Additional history exists Alcohol/Substance Use Screening 07/24/2025 07/24/2024 Depression Screening [...] patient's age to complete this topic Meningococcal B Vaccine Aged Out No l onger eligible based on patient's age to complete [...] Comments XR SHOULDER 2+ VIEWS LEFT Routine 09/12/2024 12:[address] CHEST WO CONTRAST Routine 09/10/2024 6:50 PM EDT LACTIC ACID Routine 09/09/2024 7:54 AM EDT VENOUS BLOOD GAS Routine 09/09/2024 7:45 AM EDT SARS COV2/INFLUENZA A/B AND RSV RNA QL NAAT Routine 09/09/2024 6:26 AM EDT XR CHEST 1 VIEW Routine 09/09/2024 6:21 AM EDT XR SHOULDER 2+ VIEWS LEFT Routine 08/26/2024 10:47 PM EDT HOLD LAVENDER - POSSIBLE HEMATOLOGY Routine 08/26/2024 [...] VIEWS LEFT Routine 06/19/2024 4:00 PM EST HEPATITIS C ANTIBODY Routine 07/19/2023 11:42 AM EDT Annual physical exam LIPID PANEL, STANDARD Routine 03/05/2021 9:16 AM EDT from Last 3 Months or Most Recently Relevant to Health Maintenance Results * XR Shoulder 2+ Views Left (09/12/2024 12:26 PM EDT) Only the most recent of4 resultswithin the time period is included. Anatomical Region Laterality Modality Upper Extremities, Shoulder Left Radi ographic Imaging 09/12/2024 12:2 6 PM EDT Narrative 09/12/2024 1:19 PM EDT ? [facility] ?[address] ?[place] [address] ?XRay Report ? Signed ? Patient: Prawismaelki,Alex ?MR#: [id number] ?? [id number] ? : 1945 ?Acct:[id number] ? Age/Sex: 79 / M ?ADM Date: 05/12/25 ? Loc: HO.S3 ?347-1 ? Attending Dr: Xiomara Steele MD ? Ordering Physician: Tree Hand ?? Date of Service: 09/12/24 ?? Procedure(s): XR shoulder LT min 2V ?? Accession Number(s): [id number] ? cc: Tree Hand; Sesar Pereyra MD ? EXAMINATION: ?? XR SHOULDER, LEFT ? CLINICAL INFORMATION: ?? Shoulder pain s/p surgery ? COMPARISON: ?? None available. ? TECHNIQUE: ?? Two views of the left shoulder. ? FINDINGS: ?? There is mild diffuse osteopenia. No fracture, dislocation, or ?? suspicious bone lesion. Normal alignment. ?? The glenohumeral joint demonstrates at least moderate degenerative ?? arthritis. Evaluation limited by obliquity. ?? The AC joint demonstrates mild to moderate spurring, predominantly ?? superior surface. ?? There is a type II acromion. No undersurface spurring. ?? The subacromial space is preserved. ? On the Y view, calcification in the region of the teres minor may ?? represent loose body. ? XR/XR shoulder LT min 2V ?? IMPRESSION: ?? 1. No acute finding of the left shoulder on these 2 limited views. ?? 2. At least moderate and likely severe degenerative arthritis of the ?? glenohumeral joint. ?? 3. Calcification in the region of the teres minor tendon on the Y-view, ?? possibly on the basis of loose body. ? Electronically signed by: ??Jaquan Guillen MD ??09/12/2024 01:16 PM EDT RP ? Dictated By: ?Jaquan Guillen MD ? Signed By: ?<Electronically signed by Jaquan Guillen MD in OV> ?09/12/24 1316 ? DD/ 1226 ? TD/TT: 09/12/24 1236 ? Flatwork Finisher: ? Procedure Note Alonzo Ng - 09/12/[address] [address] XRay Report Signed Patient: Ronald Nettles#: [id number] : 7Acct:[id number] Age/Sex: 79 / MADM Date: 09/09/24 Loc: HO.S3 347-[address]: Xiomara Steele MD Ordering Physician: Tree Hand Date of Service: 09/12/24 Procedure(s): XR shoulder LT min 2V Accession Number(s): [id number] cc: Tree Hand; Sesar Pereyra MD EXAMINATION: XR SHOULDER, LEFT CLINICAL INFORMATION: Shoulder pain s/p surgery COMPARISON: None available. TECHNIQUE: Two views of the left shoulder. FINDINGS: There is mild diffuse osteopenia. No fracture, dislocation, or suspicious bone lesion. Normal alignment. The glenohumeral joint demonstrates at least moderate degenerative arthritis. Evaluation limited by obliquity. The AC joint demonstrates mild to moderate spurring, predominantly superior surface. There is a type II acromion. No undersurface spurring. The subacromial space is preserved. On the Y view, calcification in the region of the teres minor may represent loose body. XR/XR shoulder LT min 2V IMPRESSION: 1. No acute finding of the left shoulder on these 2 limited views. 2. At least moderate and likely severe degenerative arthritis of the glenohumeral joint. 3. Calcification in the region of the teres minor tendon on the Y-view, possibly on the basis of loose body. Electronically signed by: Jaquan Guillen MD 09/12/2024 01:16 PM EDT Dictated By: Jaquan Guillen MD Signed By: <Electronically signed by Jaquan Guillen MD in OV> 09/12/24 1316 DD/ 1226 TD/TT: 09/12/24 1236 Flatwork Finisher: [facility] External Provider IMG XR PROCEDURES Final Result * CT Chest w/o Contrast (09/10/2024 6:50 PM EDT) Anatomical Region Laterality Modality Body, Chest Computed Tomogra phy 09/10/2024 6:50 PM EDT Narrative 09/11/2024 10:46 AM EDT ? [place] [facility] ?[address] ?[place] [address] ? CT Scan Report ? Signed ? Patient: Prawlucki,Alex ?MR#: [id number] ?? [id number] ? : 1945 ?Acct:[id number] ? Age/Sex: 79 / M ?ADM Date: 09/09/24 ? Loc: HO.S3 ?347-1 ? Attending Dr: Xiomara Steele MD ? Ordering Physician: Andrez Hendrix MD ?? Date of Service: 09/10/24 ?? Procedure(s): CT chest wo IV con ?? Accession Number(s): [id number] ? cc: Sesar Pereyra MD; Andrez Hendrix MD ? Report Number: ?? [id number]: Total DLP = ??570.00 mGy-cm ?? EXAMINATION: CT CHEST WITHOUT IV CONTRAST ? INDICATION: Dyspnea ? COMPARISON: Comparison is made with the prior examination dated ?? 03/18/2024. ? TECHNIQUE: Helical CT scan of the chest was performed without ?? intravenous contrast. ??Coronal and sagittal reformatted images were ?? generated and reviewed. ? This CT exam was performed with one or more of the following dose ?? reduction techniques: automated exposure control, adjustment of the mA ?? and/or kV according to patient size, use of iterative reconstruction ?? technique. ? DLP: 570 mGy-cm ? CHEST: ? THYROID: The thyroid is unremarkable. ? LUNGS: There is moderate emphysema. There are confluent airspace ?? opacities with air bronchograms in both lower lobes, consistent with ?? pneumonia. ? MEDIASTINUM: There is a 1.4 cm right paratracheal lymph node which is ?? larger than on the prior study. ? ALEX: Evaluation of the hilar regions is limited by lack of intravenous ?? contrast material. ? CARDIOVASCULATURE: The heart is enlarged. ??There is no pericardial ?? effusion. ??There is dilatation of the ascending thoracic aorta ?? measuring up to 4.7 cm in diameter. ? DEGREE OF CORONARY CALCIFICATION: ??severe ? PLEURA: ??There is no pleural effusion. ??No pneumothorax. ? MAIN AIRWAYS: The mainstem bronchi and proximal branches are patent. ? AXILLA: There is no axillary lymphadenopathy. ? BONES AND SOFT TISSUES: There is degenerative disc disease of the spine. ? UPPER ABDOMEN: There are multiple subcentimeter hypodensities in the ?? liver which likely represent cysts, but are too small to accurately ?? characterize. The visualized portion of the spleen has an unremarkable ?? unenhanced appearance. Again seen is a 1.1 cm right adrenal adenoma. ? CT/CT chest wo IV con ?? IMPRESSION: ? 1. Moderate emphysema. Bilateral lower lobe pneumonia. Follow-up is ?? recommended, to document resolution. ? 2. Cardiomegaly. Dilatation of the ascending thoracic aorta measuring ?? up to 4.7 cm in diameter. ? Electronically signed by: ??Anuj Hendrickson MD ??09/11/2024 10:43 AM EDT ? Dictated By: ?Anuj Hendrickson MD ? Signed By: ?<Electronically signed by Anuj Hendrickson MD in OV> ?09/11/24 1043 ? DD/ 49 ? TD/TT: 09/10/241849 ? Flatwork Finisher: ? Procedure Note Alonzo Ng - 09/11/[address] [place] [address] [address] Scan Report Signed Patient: Ronald Nettles#: [id number] : 1945cct:[id number] Age/Sex: 79 / MADM Date: 09/09/24 Loc: HO.S3 347-[address]: Xiomara Steele MD Ordering Physician: Andrez Hendrix MD Date of Service: 09/10/24 Procedure(s): CT chest wo IV con Accession Number(s): [id number] cc: Sesar Pereyra MD; Andrez Hendrix MD Report Number: [id number]: Total DLP = 570.00 mGy-cm EXAMINATION: CT CHEST WITHOUT IV CONTRAST INDICATION: Dyspnea COMPARISON: Comparison is made with the prior examination dated 03/18/2024. TECHNIQUE: Helical CT scan of the chest was performed without intravenous contrast. Coronal and sagittal reformatted images were generated and reviewed. This CT exam was performed with one or more of the following dose reduction techniques: automated exposure control, adjustment of the mA and/or kV according to patient size, use of iterative reconstruction technique. DLP: 570 mGy-cm CHEST: THYROID: The thyroid is unremarkable. LUNGS: There is moderate emphysema. There are confluent airspace opacities with air bronchograms in both lower lobes, consistent with pneumonia. MEDIASTINUM: There is a 1.4 cm right paratracheal lymph node which is larger than on the prior study. ALEX: Evaluation of the hilar regions is limited by lack of intravenous contrast material. CARDIOVASCULATURE: The heart is enlarged. There is no pericardial effusion. There is dilatation of the ascending thoracic aorta measuring up to 4.7 cm in diameter. DEGREE OF CORONARY CALCIFICATION: severe PLEURA: There is no pleural effusion. No pneumothorax. MAIN AIRWAYS: The mainstem bronchi and proximal branches are patent. AXILLA: There is no axillary lymphadenopathy. BONES AND SOFT TISSUES: There is degenerative disc disease of the spine. UPPER ABDOMEN: There are multiple subcentimeter hypodensities in the liver which likely represent cysts, but are too small to accurately characterize. The visualized portion of the spleen has an unremarkable unenhanced appearance. Again seen is a 1.1 cm right adrenal [address]oma. CT/CT chest wo IV con IMPRESSION: 1. Moderate emphysema. Bilateral lower lobe pneumonia. Follow-up is recommended, to document resolution. 2. Cardiomegaly. Dilatation of the ascending thoracic aorta measuring up to 4.7 cm in diameter. Electronically signed by: Anuj Hendrickson MD 09/11/2024 10:43 AM EDT Dictated By: Anuj Hendrickson MD Signed By: <Electronically signed by Anuj Hendrickson MD in OV> 09/11/24 1043 DD/ 49 TD/TT: 09/10/241849 Flatwork Finisher: us [facility] External Provider IMG CT PROCEDURES Final Result * (ABNORMAL) Lactic Acid (09/09/2024 7:54 AM EDT) Only the most recent of3 resultswithin the time period is included. Lactic Acid 2.2(HH) 0.5 - 2.0 mmol/L [facility] Comment:Critical value for L ACTIC: Results called to and read backby: HSUW Person calling: FÁTIMA Date: 09/09/24 Time: 824 09/09/2024 7:54 AM EDT 09/09/2024 8:01 AM EDT Generic External Data Provider LAB BLOOD ORDERAB LES Final Result [facility] [address] [place] [phone] * (ABNORMAL) VENOUS BLOOD GAS (09/09/2024 7:45 AM EDT) Only the most recent of2 resultswithin the time period is included. VBG pH 7.50(H) 7.32 - 7.43 [facility] Comment:METER #: [id number] additional_comment: Cb patelha VBG PCO2 28 mmHg [facility] Comment:METER #: [id number] additional_comment: Cb patelha VBG PO2 38 mmHg [facility] Comment:METER #: [id number] additional_comment: Cb patelha VBG Base Excess 0.7 mmol/L [facility] Comment:METER #: [id number] additional_comment: Cb patelha VBG HCO3 22 22 - 26 mmol/L [facility] Comment:METER #: [id number] additional_comment: Cb patelha O2 Sat, Garrick 60.0 % [facility] Comment:METER #: [id number] additional_comment: Cb patelha 09/09/2024 7:45 AM EDT 09/09/2024 7:49 AM EDT Generic External Data Provider LAB BLOOD ORDERAB LES Final Result Performing Organization Address [facility] Co de Phone Number [facility] [address] [place] [phone] * SARS-CoV-2 RNA, Influenza A/B, and RSV RNA, Ql NAAT (09/09/2024 6:26 AM EDT) Only the most recent of2 resultswithin the time period is included. Influenza A PCR NEGATIVE Negative [facility] Influenza B PCR NEGATIVE Negative [facility] Resp Syncy Virus RNA Qual PCR NEGATIVE Negative [facility] SARS COV2 PCR NEGATIVE Negative [facility] Comment:All test results mus t be [...] use by authorized laboratories.Testing performed on the [employer] GeneXpert utilizingreal-time RT-PCR.All SARS CoV2 and positive influenza A/B results arereported to [facility]. 09/09/2024 6:26 AM EDT 09/09/2024 6:33 AM EDT Generic External Data Provider LAB MICROBIOLOGY - GENERAL ORDERABLES Final Result Performing Organization Address [facility]/ZIP Co de Phone Number [facility] [address] [place] [phone] * XR Chest 1 View (09/09/2024 6:21 AM EDT) Only the most recent of2 resultswithin the time period is included. Anatomical Region Laterality Modality Chest Radiographic Homa ging 09/09/2024 6:21 AM EDT Narrative 09/09/2024 6:23 AM EDT ? [facility] ?[address] ?[place] [address] ?XRay Report ? Signed ? Patient: Prawlucki,Alex ?MR#: [id number] ?? [id number] ? : 1945 ?Acct:[id number] ? Age/Sex: 79 / M ?ADM Date: 09/09/24 ? Loc: HO.ED ? Attending Dr: ? Ordering Physician: Generic ED Physician ?? Date of Service: 09/09/24 ?? Procedure(s): XR chest 1V ?? Accession Number(s): [id number] ? cc: Sesar Pereyra MD; Generic ED Physician ? CLINICAL HISTORY: dyspnea ? 1 view chest x-ray ? Comparison: 08/20/2024 ? Findings: ?? There is consolidation in the left lung base, possible pneumonia or ?? subsegmental atelectasis. ?? Normal size heart. ?? No acute fracture. ? IMPRESSION: ?? 1. Left basilar consolidation, differential considerations noted. ? This document has been electronically signed by: Nhan Olivas MD on ?? 09/09/2024 06:21:14 ? Dictated By: ?Nhan Olivas MD ? Signed By: ?<Electronically signed by Nhan Olivas MD in OV> ?09/09/24621 ? DD/ 0 ? TD/TT: 09/09/24620 ? Flatwork Finisher: ? Procedure Note Hernandez, Image - 09/09/2024 [place] [address] XRay Report Signed Patient: Ronald Nettles#: [id number] : 7Acct:[id number] Age/Sex: 79 / MADM Date: 09/09/24 Loc: HO.ED Attending Dr: Ordering Physician: Generic ED Physician Date of Service: 09/09/24 Procedure(s): XR chest 1V Accession Number(s): [id number] cc: Sesar Pereyra MD; Generic ED Physician CLINICAL HISTORY: dyspnea 1 view chest x-ray Comparison: 08/20/2024 Findings: There is consolidation in the left lung base, possible pneumonia or subsegmental atelectasis. Normal size heart. No acute fracture. IMPRESSION: 1. Left basilar consolidation, differential considerations noted. This document has been electronically signed by: Nhan Olivas MD on 09/09/2024 06:21:14 Dictated By: Nhan Olivas MD Signed By: <Electronically signed by Nhan Olivas MD in OV> 09/09/24621 DD/ 0 TD/TT: 09/09/24620 Flatwork Finisher: [facility] External Provider IMG XR PROCEDURES Final Result * Hold Lavender - Possible Hematology (08/26/2024 5:28 PM EDT) [facility] Possible Hematololgy SEE NOTE [facility] Comment:Specimen will be hel d untested for 8 hours. Call Hematologyif testing is desired. 08/26/2024 5:28 PM EDT 08/26/2024 5:34 PM EDT [facility] External Data Provider HISTORICAL/NON OR DERABLE LABS Final Result Performing Organization Address City/[facility]/ZIP Co de Phone Number [facility] [address] [place] [phone] * (ABNORMAL) B Type Natriuretic Peptide (BNP) (08/26/2024 5:16 PM EDT) [facility] B Type Natriuretic Peptide 379(H) <100 pg/mL [facility] 08/26/2024 5:16 PM EDT 08/26/2024 5:18 PM EDT Generic External Data Provider LAB BLOOD ORDERAB LES Final Result Performing Organization Address City/[facility]/ZIP Co de Phone Number [facility] [address] [place] [phone] * (ABNORMAL) CBC auto differential (08/26/2024 1:18 PM EDT) Only the most recent of3 resultswithin the time period is included. [facility] White Blood Count 12.2(H) 4.8 - 10.8 X10*3/uL [facility] Red Blood Count 4.34(L) 4.60 - 5.80 X10*6/uL [facility] Hemoglobin 13.5(L) 14.0 - 18.0 g/dl [facility] Hematocrit 41.5(L) 42.0 - 52.0 % [facility] Mean Corpuscular Volume 95.6 80.0 - 98.0 fL [facility] Mean Corpuscular Hemoglobin 31.1 27.0 - 33.0 pg [facility] Mean Corpuscular HGB Conc 32.5 31.0 - 36.0 g/dl [facility] Red Cell Distribution Width 15.9 11.0 - 16.0 % [facility] Platelet Count 255 160 - 400 X10*3/uL [facility] Mean Platelet Volume 10.2 9.4 - 12.4 fL [facility] Neutrophils Percent Auto 88.1(H) 45 - 73 % [facility] Imm Gran Pct Auto 0.4 0.0 - 0.4 % [facility] Lymphocytes Percent Auto 3.6(L) 20 - 40 % [facility] Monocytes Percent Auto 7.6 2 - 11 % [facility] Eosinophils Percent Auto 0.0 0 - 4 % [facility] Basophils Percent Auto 0.3 0 - 2 % [facility] NRBC Pct Auto 0.0 0.0 - 0.2 /100WBC [facility] Neutrophils Absolute Auto 10.7(H) 2.0 - 8.3 x10*3/uL [facility] Imm Gran Abs Auto 0.05(H) 0.00 - 0.03 X10*3/uL [facility] Lymphocytes Absolute Auto 0.4(L) 1.2 - 4.9 X10*3/uL [facility] Monocytes Absolute Auto 0.9 0.1 - 1.2 X10*3/uL [facility] Eosinophils Absolute Auto 0.0 0.0 - 0.4 X10*3/uL [facility] Basophils Absolute Auto 0.0 0.0 - 0.2 X10*3/uL [facility] NRBC Abs Auto 0.000 0.0 - 0.012 X10*3/uL [facility] 08/26/2024 1:18 PM EDT 08/26/2024 1:21 PM EDT Generic External Data Provider LAB BLOOD ORDERAB LES Final Result Performing Organization Address City/[facility] Co de Phone Number [facility] [address] [place] [address] [phone] * Magnesium (08/26/2024 1:17 PM EDT) [facility] Magnesium 1.9 1.6 - 2.6 mg/dL [facility] 08/26/2024 1:17 PM EDT 08/26/2024 1:21 PM EDT Generic External Data Provider LAB BLOOD ORDERAB LES Final Result Performing Organization Address [facility] Phone Number [facility] [address] [place] [address] [phone] * Lipase (08/26/2024 1:17 PM EDT) Only the most recent of2 resultswithin the time period is included. [facility] Lipase 9 8 - 78 U/L [facility] 08/26/2024 1:17 PM EDT 08/26/2024 1:21 PM EDT Generic External Data Provider LAB BLOOD ORDERAB LES Final Result Performing Organization Address [facility] de Phone Number [facility] [address] [place] [address] [phone] * (ABNORMAL) Comprehensive Metabolic Panel (08/26/2024 1:17 PM EDT) Only the most recent of2 resultswithin the time period is included. [facility] Sodium 135 135 - 145 mmol/L [facility] Potassium 4.5 3.3 - 5.1 mmol/L [facility] Comment:Slight Hemolysis.Int erpret result with caution. Chloride 106 96 - 108 mmol/L [facility] Carbon Dioxide 19(L) 22 - 29 mmol/L [facility] Anion Gap 15 12 - 20 [facility] Urea Nitrogen (BUN) 20(H) 9 - 16 mg/dL [facility] Creatinine, Serum 1.16 0.5 - 1.4 mg/dL [facility] Creatinine Clr Calc Pharmacy 68.8 [facility] Comment:eGFR (calculated fro m the MDRD study equation) and eCrCl(calculated from the Cockcroft-Gault equation) are based ondifferent parameters and may not yield comparable results.If eCrCl result is absurd, please check patient'sheight/weight. Estimated Glomerular Filt Rate >60 [facility] Comment:Chronic Kidney Disea se: Estimated GFR < 60 mL/min/1.68p5Yamzzu Kidney Disease: Estimated GFR < 15 mL/min/1.73m2 Glucose 97 60 - 115 mg/dL [facility] Calcium 9.2 8.4 - 10.2 mg/dL [facility] Bilirubin, Total 0.7 0.0 - 1.0 mg/dL [facility] Aspartate Amino Transferase 27 5 - 37 U/L [facility] Comment:Slight Hemolysis.Int erpret result with caution. Alanine Aminotransferase 11 0 - 40 U/L [facility] Total Protein 7.0 6.5 - 8.0 g/dL [facility] Albumin Level 4.0 3.5 - 5.0 g/dL [facility] Alkaline Phosphatase 111 39 - 117 U/L [facility] 08/26/2024 1:17 PM EDT 08/26/2024 1:21 PM EDT us Generic External Data Provider LAB BLOOD ORDERAB LES Final Result [facility] [address] [facility] [place] [phone] * XR Chest 2 Views (08/26/2024 12:35 PM EDT) Only the most recent of2 resultswithin the time period is included. Anatomical Region Laterality Modality Chest Radiographic Homa ging 08/26/2024 12:3 5 PM EDT Narrative 08/26/2024 12:50 PM EDT ? [facility] ?[address] ?[place] [address] ?XRay Report ? Signed ? Patient: Alex Nettles ?MR#: [id number] ?? [id number] ? : 1945 ?Acct:[id number] ? Age/Sex: 79 / M ?ADM Date: 08/26/24 ? Loc: HO.ED ? Attending Dr: ? Ordering Physician: Lonny Delgado ?? Date of Service: 08/26/24 ?? Procedure(s): XR chest 2V ?? Accession Number(s): [id number] ? cc: Sesar Pereyra MD; Lonny Delgado [...] DD/ 1235 ? TD/TT: 08/26/24 1240 ? Flatwork Finisher: ? Procedure Note Donotuseinterpreter, Image - 08/26/[address] [address] XRay Report Signed Patient: Alex NettlesMR#: [id number] : 1945cct:[id number] Age/Sex: 79 / MADM Date: 08/26/24 Loc: HO.ED Attending Dr: Ordering Physician: Lonny Delgado Date of Service: 08/26/24 Procedure(s): XR chest 2V Accession Number(s): [id number] cc: Sesar Pereyra MD; Lonny Delgado EXAMINATION: [...] 08/26/24 1248 DD/ 1235 TD/TT: 08/26/24 1240 Flatwork Finisher: us [facility] External Provider IMG XR PROCEDURES Final Result * HOLD LT BLUE - POSSIBLE COAG (07/11/2024 11:38 AM EDT) Hold Lt Blue - Possible Coag SEE NOTE [facility] Comment:Specimen will be hel d untested for 4 hours. Call Hematologyif testing is desired. 07/11/2024 11:3 8 AM EDT 07/11/2024 11:47 AM EDT us Generic External Data Provider LAB BLOOD ORDERAB LES Final Result [facility] [address] [place] [address] [phone] * FL Guidance in OR (06/21/2024 5:50 PM EST) Anatomical Region Laterality Modality X-Ray Angiograph y 06/21/2024 5:50 PM EST Narrative 06/24/2024 8:13 AM EST ? [facility] ?[address] ?[place] [address] ? Fluoroscopy Report ? Signed ? Patient: Alex Nettles ?MR#: [id number] ?? [id number] ? : 1945 ?Acct:[id number] ? Age/Sex: 79 / M ?ADM Date: 06/19/24 ? Loc: HO.S3 ?363-2 ? Attending Dr: Tania Bernabe BIOSOLIDS MANAGEMENT TECHNICIAN ? Ordering Physician: Royce Kothari MD ?? Date of Service: 06/21/24 ?? Procedure(s): FL guidance in OR ?? Accession Number(s): [id number] ? cc: Sesar Pereyra MD; Royce Kothari [...] DD/ 1750 ? TD/TT: 06/21/24 175 ? Flatwork Finisher: ? Procedure Note Doncathieter, Image - 06/24/[address] [address] Fluoroscopy Report Signed Patient: Alex NettlesMR#: [id number] : 1945cct:[id number] Age/Sex: 79 / MADM Date: 06/19/24 Loc: HO.S3 363-[address]: Tania Bernabe BIOSOLIDS MANAGEMENT TECHNICIAN Ordering Physician: Royce Kothari MD Date of Service: 06/21/24 Procedure(s): FL guidance in OR Accession Number(s): [id number] cc: Sesar Pereyra MD; Royce Kothari MD [...] OV> 06/24/24 0810 DD/ 49 TD/TT: 06/21/241749 Flatwork Finisher: [facility] External Provider IMG IR PROCEDURES Final Result * CT Humerus (06/19/2024 8:00 PM EST) Anatomical Region Laterality Modality Computed Tomogra phy 06/19/2024 8:00 PM EST Narrative 06/19/2024 8:02 PM EST ? [facility] ?[address] ?[place] [address] ? CT Scan Report ? Signed ? Patient: ThoAlex ?MR#: [id number] ?? [id number] ? : 1945 ?Acct:[id number] ? Age/Sex: 79 / M ?ADM Date: 06/19/24 ? Loc: HO.ED ? Attending Dr: ? Ordering Physician: Angela Moura MD ?? Date of Service: 06/19/24 ?? Procedure(s): CT humerus LT wo IV con ?? Accession Number(s): [id number] ? cc: Sesar Pereyra MD; Angela Moura MD ? Report Number: ?? [id number]: Total DLP = ??192.00 mGy-cm ? CLINICAL [...] of the dorsal margin of the glenoid. Tesjbkkq-mm-kdxut ?? 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 ?? 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 ?? Please refer to separate report for x-rays of the partially included elbow. ?? Mild imaged rib deformities in the hcppj-qf-qhbk appear old/chronic. ? Impression: ?? 1. Anterior [...] ? DD/ 99 ? TD/TT: 06/19/241999 ? Flatwork Finisher: ? Procedure Note Donjr, Image - 06/20/[address] [address] [address] Scan Report Signed Patient: Alex NettlesMR#: [id number] : 1945cct:[id number] Age/Sex: 79 / MADM Date: 06/19/24 Loc: HO.ED Attending Dr: Ordering Physician: Angela Moura MD Date of Service: 06/19/24 Procedure(s): CT humerus LT wo IV con Accession Number(s): [id number] cc: Sesar Pereyra MD; Angela Moura MD Report Number: [id number]: Total DLP = 192.00 mGy-cm CLINICAL HISTORY: [...] of the dorsal margin of the glenoid. Bpetbgjy-cp-ryinu effusion with lipohemarthrosis of the left glenohumeral joint. 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 Please refer to separate report for x-rays of the partially includedelbow. Mild imaged rib deformities in the bobuw-ot-fqta appear old/chronic. Impression: 1. Anterior dislocation of [...] in OV> 06/19/242001 DD/ 99 TD/TT: 06/19/241999 Flatwork Finisher: [facility] External Provider IMG CT PROCEDURES Final Result * (ABNORMAL) Prothrombin Time-INR (06/19/2024 7:57 PM EST) Prothrombin Time 16.0(H) 10.9 - 12.4 SEC [facility] INTERNATIONAL NORM RATIO 1.4(H) 0.9 - 1.1 [facility] Comment:INTERNATIONAL NORMAL IZED RATIO (INR) [...] ORDERAB LES Final Result Performing Organization Address City/State/[facility] Co de Phone Number [facility] [address] [place] [phone] * XR Elbow 3+ Views Left (06/19/2024 7:16 PM EST) Anatomical Region Laterality Modality Upper Extremities, Elbow Left Radiogr aphic Imaging 06/19/2024 7:16 PM EST Narrative 06/19/2024 7:18 PM EST ? [place] [facility] ?[address] ?[place] [address] ?XRay Report ? Signed ? Patient: Prawlucki,Alex ?MR#: [id number] ?? [id number] ? : 1945 ?Acct:[id number] ? Age/Sex: 79 / M ?ADM Date: 06/19/24 ? Loc: HO.ED ? Attending Dr: ? Ordering Physician: Angela Moura MD ?? Date of Service: 06/19/24 ?? Procedure(s): XR elbow LT min 3V ?? Accession Number(s): [id number] ? cc: Sesar Pereyra MD; Angela Moura [...] ? DD/ 15 ? TD/TT: 06/19/241915 ? Flatwork Finisher: ? Procedure Note Alonzo Ng - 06/19/[address] [address] XRay Report Signed Patient: Ronald Nettles#: [id number] : 1945cct:[id number] Age/Sex: 79 / MADM Date: 06/19/24 Loc: HO.ED Attending Dr: Ordering Physician: Angela Moura MD Date of Service: 06/19/24 Procedure(s): XR elbow LT min 3V Accession Number(s): [id number] cc: Sesar Pereyra MD; Angela Moura MD [...] in OV> 06/19/241916 DD/ 15 TD/TT: 06/19/241915 Flatwork Finisher: [facility] External Provider IMG XR PROCEDURES Final Result * CT Head w/o Contrast (06/19/2024 7:12 PM EST) Anatomical Region Laterality Modality Head, Neck Computed Tomogra phy 06/19/2024 7:12 PM EST Narrative 06/19/2024 7:14 PM EST ? [facility] ?[address] ?[place] [address] ? CT Scan Report ? Signed ? Patient: Tho,Alex ?MR#: [id number] ?? [id number] ? : 1945 ?Acct:[id number] ? Age/Sex: 79 / M ?ADM Date: 06/19/ ? Loc: HO.ED ? Attending Dr: ? Ordering Physician: Lonny Delgado ?? Date of Service: 06/19/24 ?? Procedure(s): CT head/brain wo IV con ?? Accession Number(s): [id number] ? cc: Sesar Pereyra MD; Lonny Delgado ? Report Number: ?? [id number]: Total DLP = ??652.00 mGy-cm ? CLINICAL [...] ? DD/ 11 ? TD/TT: 06/19/241911 ? Flatwork Finisher: ? Procedure Note Hernandez, Alonzo - 06/19/[address] [place] [address] [address] Scan Report Signed Patient: Alex NettlesMR#: [id number] : 1945cct:[id number] Age/Sex: 79 / MADM Date: 06/19/24 Loc: HO.ED Attending Dr: Ordering Physician: Lonny Delgado Date of Service: 06/19/24 Procedure(s): CT head/brain wo IV con Accession Number(s): [id number] cc: Sesar Pereyra MD; Lonny Delgado Report Number: [id number]: Total DLP = 652.00 mGy-cm CLINICAL HISTORY: [...] in OV> 06/19/241912 DD/ 11 TD/TT: 06/19/241911 Flatwork Finisher: [facility] External Provider IMG CT PROCEDURES Final Result * Hepatitis C Ab (07/19/2023 11:42 AM EDT) Pathologist [facility] Hepatitis C Antibody Nonreactive Nonreactive [facility] Comment:Antibodies to HCV no t detected; does not exclude early acuteHCV infection. Blood Venous blood specimen / Unknown 07/19/2023 11:42 AM EDT 07/19/2023 2:25 PM EDT Sesar Pereyra MD LAB BLOOD ORDERABLES Final Result [facility] [address] [place] [phone] * (ABNORMAL) LIPID PANEL, STANDARD [...] ?? Ulisses MCDANIEL et al. MANDEEP. 2013;310(19): 1762-5150 ?? (http://education.Edufii.HESKA/faq/TJW981) Non-HDL Cholesterol 104 <130 mg/dL (calc) [facility] Comment: For patients with diabetes plus 1 major ASCVD risk ?? factor, treating to a non-HDL-C goal of <100 mg/dL ?? (LDL-C of <70 mg/dL) is considered a therapeutic ?? option. Triglycerides 232(H) <150 mg/dL [facility] Comment: ?? If a non-fasting specimen was collected, consider repeat triglyceride testing on a fasting specimen if clinically indicated. ?? Estela et al. J. of Clin. Lipidol. 2015;9:129-169. ?? 03/05/2021 9:16 AM EDT Sesar Pereyra MD LAB BLOOD ORDERABLES Final Result [facility] [address] from Last 3 Months or Most Recently Relevant to Health Maintenance Insurance [employer] MEDICARE REPLACEMENT [facility] Care Teams Crystal Mounter Relationship Specialty Start Date End Date Sesar Pereyra MD [address] [place] [phone] PCP - General Internal Medicine [facility]
--- OUTSIDE RECORDS SUMMARY | 2024-09-16 08:38 | XMS_ITS | Encounter Summary ---
Author Organization [facility] Address [address] [place] [address] Care Team Providers Care Reinspector Name Role Phone Yolande Nicholas DO Primary Care Pro vider Unavailable Anuj Priest DO Primary Care Provider [facility], Pcp Primary Care Provider Unavailabl e Reason for Visit * Reason Onset Date Comments Mychart Rx Refill 06/27/2020 Encounter Details Date Type Department Care Team Description 06/27/2020 Refill Adult Medicine [address] [address] Yolande Nicholas DO Mychart Rx Refill Social [...] pharmacy whats the hold up Preferred pharmacy: [facility] [address] Medication renewals requested in this message routed separately: atorvastatin (LIPITOR) 80 MG tablet [Yolande Gomez DO] metoprolol (LOPRESSOR) 25 MG tablet [Yolande Gomez DO] documented in this encounter Plan of Treatment Not on file documented as of this encounter Visit Diagnoses Not on filedocumented in this encounter Care Teams Reinspector Relationship Specialty Start Date End Date Yolande Nicholas DO PCP - General Internal Medicine 12/03/18 10/08/20 Anuj Priest DO PCP - General Internal Medicine 10/09/[address] [place] [address], Pcp PCP - General Internal Medicine 06/17/21 documented as of this encounter
--- OUTSIDE RECORDS SUMMARY | 2024-09-16 08:38 | XMS_ITS | Encounter Summary ---
Author Organization [facility] Address [address] [place] [address] Care Team Providers Care Director Biologics Name Role Phone Yolande Nicholas DO Primary Care Pro vider Unavailable Anuj Priest DO Primary Care Provider Judy álvarez [facility], Pcp Primary Care Provider Unavailabl e Encounter Details Date Type Department Care Team Description 09/07/2020 Online Marketing Director Report Medical Records [address] [place] [phone] Dhruv Garcia MD Social History Tobacco Use [...] filedocumented in this encounter Care Teams Director Biologics Relationship Specialty Start Date End Date Yolande Nicholas DO PCP - General Internal Medicine 12/03/18 10/08/20 Anuj Priest DO PCP - General Internal Medicine 10/09/20 Jj, Pcp PCP - General Internal Medicine 06/17/21 documented as of this encounter
--- OUTSIDE RECORDS SUMMARY | 2024-09-16 08:39 | XMS_ITS | Encounter Summary ---
Author Organization [facility] Address [address] [place] [address] Care Team Providers Care Automotive Power Electronics Engineer Name Role Phone Yolande Nicholas DO Primary Care Pro vider Unavailable Anuj Priest DO Primary Care Provider [facility], Pcp Primary Care Provider Unavailabl e Reason for Visit * Reason Onset Date Comments Faxed Order 03/08/2020 Encounter Details Date Type Department Care Team Description 03/08/2020 Telephone Adult [address] [address] Yolande Nicholas DO Faxed Order Social History [...] review, sign, date, and fax back to [phone] * Telephone Encounter - Gerri Parra - 03/08/2020 2:16 PM EST [facility] IS FAXING ORDERS TO BE SIGN AND FAX BACK TO [phone]. documented in this encounter Plan of Treatment Not on file documented as of this encounter Visit Diagnoses Not on filedocumented in this encounter Care Teams Automotive Power Electronics Engineer Relationship Specialty Start Date End Date Yolande Nicholas DO PCP - General Internal Medicine 12/03/18 10/08/20 Anuj Priest DO PCP - General Internal Medicine 10/09/[address] [place] [address], Pcp PCP - General Internal Medicine 06/17/21 documented as of this encounter
--- OUTSIDE RECORDS SUMMARY | 2024-09-16 08:39 | XMS_ITS | Encounter Summary ---
Author Organization [employer] Address [address] [place] [address] 7 [place] [address] Care Team Providers Care Software Quality Manager Name Role Phone Sesar Pereyra MD Primary Care Provider [phone] Reason for Referral * Hospital - Outpatient (Routine) - Closed Specialty Diagnoses / Procedures Referred By Wander reynolds Referred To Contact Diagnoses Sleep disorder Snoring Procedures Polysomnography Sesar Pereyra MD [address] [place] [address] Phone: tel: fax: [address] Phone: tel: fax: Referral ID Status Reason Start Date Expiration Date Visits Re quested Visits Authorized [id number] Closed 08/02/2024 08/02/2025 1 1 Encounter Details Date Type Department Care Team (Late st Contact Info) Description 08/01/2024 Orders Only [facility] [address] [place], [place] [phone] Sesar Pereyra MD [address] [place] [phone] Sleep disorder (Primary Dx); Snoring Social History [...] as of this encounter Plan of Treatment Scheduled Orders [...] EDT Narrative 08/26/2024 12:50 PM EDT ? [facility] ?[address] ?[place] [address] ?XRay Report ? Signed ? Patient: Tho,Alex ?MR#: [id number] ?? [id number] ? : 1945 ?Acct:[id number] ? Age/Sex: 79 / M ?ADM Date: 08/26/24 ? Loc: HO.ED ? Attending Dr: ? Ordering Physician: Lonny Delgado ?? Date of Service: 08/26/24 ?? Procedure(s): XR chest 2V ?? Accession Number(s): [id number] ? cc: Sesar Pereyra MD; Lonny Delgado [...] DD/ 1235 ? TD/TT: 08/26/24 1240 ? Commodity Supervisor: ? Procedure Note Donotuseinterpreter, Image - 08/26/[address] [address] XRay Report Signed Patient: Ronald Nettles#: [id number] : 7Acct:[id number] Age/Sex: 79 / MADM Date: 08/26/24 Loc: HO.ED Attending Dr: Ordering Physician: Lonny Delgado Date of Service: 08/26/24 Procedure(s): XR chest 2V Accession Number(s): [id number] cc: Sesar Pereyra MD; Lonny Delgado EXAMINATION: [...] 08/26/24 1248 DD/ 1235 TD/TT: 08/26/24 1240 Commodity Supervisor: [facility] External Provider IMG XR PROCEDURES Final Result * XR Shoulder 2+ Views Left (08/01/2024 10:00 AM EDT) Anatomical Region Laterality Modality Upper Extremities, Shoulder Left Radi ographic Imaging 08/01/2024 10:0 0 AM EDT Narrative 08/02/2024 8:13 AM EDT ? [facility] ? [address] ?[place] [address] ?XRay Report ? Signed ? Patient: Prawlucki,Alex ?MR#: [id number] ?? [id number] ? : 1945 ?Acct:[id number] ? Age/Sex: 79 / M ?ADM Date: 08/01/24 ? Loc: HO.HOSX ? Attending Dr: Royce Kothari MD ? Ordering Physician: Royce Kothari MD ?? Date of Service: 08/01/24 ?? Procedure(s): XR shoulder LT min 2V ?? Accession Number(s): [id number] ? cc: Sesar Pereyra MD; Royce Kothari [...] Quezada MD ??08/02/2024 08:11 AM ?? EDT ? Dictated By: ?Kalin Cox MD ? Signed By: ?<Electronically signed by Kalin Donald MD in OV> ? 08/02/24 0811 ? DD/ 1000 ? TD/TT: 08/01/24 1005 ? Commodity Supervisor: ? Procedure Note Alonzo Ng - 08/02/2024 [facility] [address] [place] [address] [address] [place] [address] XRay Report Signed Patient: Alex Nettles#: [id number] : 7Acct:[id number] Age/Sex: 79 / MADM Date: 08/01/24 Loc: HO.HOSX Attending Dr: Royce Kothari MD Ordering Physician: Royce Kothari MD Date of Service: 08/01/24 Procedure(s): XR shoulder LT min 2V Accession Number(s): [id number] cc: Sesar Pereyra MD; Royce Kothari MD [...] 08/02/24 0811 DD/ 1000 TD/TT: 08/01/24 1005 Commodity Supervisor: [facility] External Provider IMG XR PROCEDURES Final Result documented in this encounter Visit Diagnoses Diagnosis Sleep disorder- Primary Unspecified sleep disturbance Snoring Other dyspnea and respiratory abnormality documented in this encounter Additional Health Concerns Assessment Noted Time PHQ-9 Depression Total Score: 6 07/25/19 25 3:22 PM EDT documented as of this encounter Care Teams Software Quality Manager Relationship Specialty Start Date End Date Sesar Pereyra MD [address] [place] [address] PCP - General Internal Medicine 03/01/21 [facility] 03/22/24 documented as of this encounter
--- OUTSIDE RECORDS SUMMARY | 2024-09-16 08:39 | XMS_ITS | Encounter Summary ---
Author Organization [employer] Address [address] [facility] [address] [place] [address] Care Team Providers Care Behavioral Health Care Manager Name Role Phone Sesar Pereyra MD Primary Care Provider [phone] Reason for Visit * Reason Onset Date Comments fyi 09/02/2024 Encounter Details Date Type Department Care Team (Late st Contact Info) Description 09/02/2024 Telephone [facility] [address] [place] [address] Sesar Pereyra MD [address] [place] [address] fyi Social History Tobacco Use Types Packs/Day [...] housing situation today? I have yenny sing 07/24/[address] you li [...] encounter Miscellaneous Notes * Telephone Encounter - Desi Gutierrez - 09/02/2024 3:59 PM EDT Tc from [place] with home care to report pain medication (celecoxib) prescribed after the pt's discharge interacts with [place]. Any questions contact [phone] documented in this encounter Plan of Treatment Not on file documented as of this encounter Visit Diagnoses Not on filedocumented in this encounter Additional Health Concerns Assessment Noted Time PHQ-9 Depression Total Score: 6 07/25/19 25 3:22 PM EDT documented as of this encounter Care Teams Behavioral Health Care Manager Relationship Specialty Start Date End Date Sesar Pereyra MD [address] [place] [phone] PCP - General Internal Medicine 03/01/21 [facility] 03/22/24 documented as of this encounter
--- OUTSIDE RECORDS SUMMARY | 2024-09-16 08:39 | XMS_ITS | Encounter Summary ---
Author Organization [facility] Address [address] [place] [address] Care Team Providers Care Quality Intern Name Role Phone Yolande Nicholas DO Primary Care Pro vider Unavailable Anuj Priest DO Primary Care Provider [facility], Pcp Primary Care Provider [facility] Encounter Details Date Type Department Care Team Description 04/04/2020 Pt. Non Urgent Medic al Question Adult Medicine [address] [address] Yolande Nicholas DO Social History Tobacco Use [...] 04/04/2020 12:08 PM EST Subject: erictile disfuction [id number] 30ct. documented in this encounter Plan of Treatment Not on file documented as of this encounter Visit Diagnoses Not on filedocumented in this encounter Care Teams Quality Intern Relationship Specialty Start Date End Date Yolande Nicholas DO PCP - General Internal Medicine 12/03/18 10/08/20 Anuj Priest DO PCP - General Internal Medicine 10/09/20 2 [facility], Pcp PCP - General Internal Medicine 06/17/21 documented as of this encounter
--- OUTSIDE RECORDS SUMMARY | 2024-09-16 08:39 | XMS_ITS | Encounter Summary ---
Author Organization [employer] Address 75 [facility] 7t [place] [address] Care Team Providers Care Telegraph Messenger Name Role Phone Sesar Pereyra MD Primary Care Provider +1- [phone] Reason for Visit * Reason Comments Med Refill Encounter Details Date Type Department Care Team ([facility] st Contact Info) Description 10/19/2022 Refill [facility] CHC MED & PEDS [address] [place], [place] [phone] Sesar Pereyra MD 505 [place], [place] [phone] Social History Tobacco Use Types Packs/Day Years [...] on filedocumented in this encounter Care Teams Telegraph Messenger Relationship Specialty Start Date End Date Sesar Pereyra MD [address] [place], [place] [address] [address] PCP - General Internal Medicine 03/01/21 [facility] 03/22/24 documented as of this encounter
--- OUTSIDE RECORDS SUMMARY | 2024-09-16 08:39 | XMS_ITS | Encounter Summary ---
Author Organization [employer] Address 75 [facility] 7 [place] [address] Care Team Providers Care Metal Temperer Name Role Phone Sesar Pereyra MD Primary Care Provider +1- [phone] Encounter Details Date Type Department Care Team ([facility] st Contact Info) Description 10/13/2022 Orders Only [facility] CHC MED & PEDS [address] [place], [place] [phone] Sesar Pereyra MD 505 [place] [address] Social History Tobacco Use Types Packs/Day Years [...] filedocumented in this encounter Care Teams Metal Temperer Relationship Specialty Start Date End Date Sesar Pereyra MD [address] [place] [address] PCP - General Internal Medicine 03/01/21 [facility] 03/22/24 documented as of this encounter
--- OUTSIDE RECORDS SUMMARY | 2024-09-16 08:39 | XMS_ITS | Encounter Summary ---
Author Organization [employer] Address 75 [facility] 7t [place] [address] Care Team Providers Care Operational Intelligence Officer Name Role Phone Sesar Pereyra MD Primary Care Provider +1- [phone] Reason for Visit * Reason Onset Date Comments Nurse Triage 09/04/2024 Encounter Details Date Type Department Care Team (Late st Contact Info) Description 09/04/2024 Telephone [facility] MEDICINE [address] [place] [address] Sesar Pereyra MD [address] [place] [address] Nurse Triage Social History Tobacco Use Types [...] encounter Miscellaneous Notes * Telephone Encounter - Sofía Cuevas RN - 09/04/2024 4:46 PM EDT Triage call Pt reports liquidy diarrhea for past 3 days. Pt was seen in [facility] 08/29/24 with dx of pneumonia and prescribed two different antibiotics which Pt has to take for at least one more day. Pt is advised to continue to take antibiotics as prescribed to finish, drink adequate liquids to replace fluid loss, gatorade, juice, water, add yogurt with cultures to the diet. Pt can use OTC immodium as instructed on package. Pt agrees with disposition. Pt will call back if needed once home care is implemented. Protocol Used: Diarrhea (Adult) Protocol-Based Disposition: Home Care Positive Triage Question: * MILD diarrhea and taking antibiotics * All higher-acuity triage questions were negative Care Advice Discussed: * Diarrhea Medicine - Bismuth Subsalicylate (such as Pepto-Bismol) * Reasons To Call Back - You have more questions - You become worse * Reassurance and Education - Diarrhea While Taking an Antibiotic * Fluid Therapy During Mild to Moderate Diarrhea * Food and Nutrition During Mild to Moderate Diarrhea * Probiotic Supplements * Yogurt and Kefir * Reasons To Call Back - Signs of dehydration occur (such as no urine over 12 hours, very dry mouth, lightheaded, etc.) - Diarrhea lasts more than 3 days after finishing antibiotic - Diarrhea becomes severe - You become worse * Telephone Encounter - Calr Diazarez - 09/04/2024 4:29 PM EDT Symptom: Diarrhea Outcome: Schedule an appointment to be seen within 24 hours Reason: Caller denied all higher acuity questions The caller accepted this outcome. *pt was in [facility] due to pneumonia documented in this encounter Plan of Treatment Not on file documented as of this encounter Visit Diagnoses Not on filedocumented in this encounter Additional Health Concerns Assessment Noted Time PHQ-9 Depression Total Score: 6 07/24/ 25 3:22 PM EDT documented as of this encounter Care Teams Operational Intelligence Officer Relationship Specialty Start Date End Date Sesar Pereyra MD [address] [place] [address] PCP - General Internal Medicine 03/01/21 [facility] 03/22/24 documented as of this encounter
--- OUTSIDE RECORDS SUMMARY | 2024-09-16 08:39 | XMS_ITS | Encounter Summary ---
Author Organization [facility] Address [address] [place] [address] Care Team Providers Care Forge Heater Name Role Phone Yolande Nicholas DO Primary Care Pro vider Unavailable Anuj Priest DO Primary Care Provider [facility], Pcp Primary Care Provider Unavailabl e Reason for Visit * Reason Onset Date Comments Faxed Order 03/03/2020 Encounter Details Date Type Department Care Team Description 03/03/2020 Telephone Adult [address] [address] Yolande Nicholas DO Faxed Order Social History [...] on filedocumented in this encounter Care Teams Forge Heater Relationship Specialty Start Date End Date Yolande Nicholas DO PCP - General Internal Medicine 12/03/18 10/08/20 Anuj Priest DO PCP - General Internal Medicine 10/09/[address] [place] [address], Pcp PCP - General Internal Medicine 06/17/21 documented as of this encounter
--- OUTSIDE RECORDS SUMMARY | 2024-09-16 08:39 | XMS_ITS | Encounter Summary ---
Author Organization [employer] Address [address] [facility] 7t [place] [address] Care Team Providers Care Manager Harbor Name Role Phone Sesar Pereyra MD Primary Care Provider +1- [phone] Reason for Visit * Reason Comments Med Refill Encounter Details Date Type Department Care Team (Late st Contact Info) Description 08/29/2023 Refill [facility] MEDICINE [address] [place] [address] Sesar Pereyra MD 505 [place] [address] Social History Tobacco Use Types Packs/Day Years [...] as of this encounter Care Teams Manager Harbor Relationship Specialty Start Date End Date Sesar Pereyra MD [address] [place] [address] PCP - General Internal Medicine 03/01/21 [facility] 03/22/24 documented as of this encounter
--- OUTSIDE RECORDS SUMMARY | 2024-09-16 08:39 | XMS_ITS | Encounter Summary ---
Author Organization [employer] Address 75 [facility] 7t [place] [address] Care Team Providers Care Employee Development Director Name Role Phone Sesar Pereyra MD Primary Care Provider +1- [phone] Reason for Visit * Reason Comments Med Refill Encounter Details Date Type Department Care Team ([facility] st Contact Info) Description 10/26/2022 Refill [facility] CHC MED & PEDS 505 [place], [place] [phone] Sesar Pereyra MD 505 [place], [place] [phone] Social History Tobacco Use Types Packs/Day Years [...] on filedocumented in this encounter Care Teams Employee Development Director Relationship Specialty Start Date End Date Sesar Pereyra MD [address] [place], [place] [address] [address] PCP - General Internal Medicine 03/01/21 [facility] 03/22/24 documented as of this encounter
--- OUTSIDE RECORDS SUMMARY | 2024-09-16 08:39 | XMS_ITS | Encounter Summary ---
Author Organization [employer] Address 75 [facility] 7t [place] [address] Care Team Providers Care Tongue Trimmer Name Role Phone Sesar Pereyra MD Primary Care Provider +1- [phone] Reason for Visit * Reason Onset Date Comments fyi 09/11/2024 Encounter Details Date Type Department Care Team (Late st Contact Info) Description 09/11/2024 Telephone [facility] MEDICINE [address] [place] [address] Sesar Pereyra MD 505 [place] [address] fyi Social History Tobacco Use Types Packs/Day [...] Telephone Encounter - Wing Marcus RN - 09/11/2024 2:46 PM EDT Tc to pt regarding [facility] stay for pneumonia from 08/26 to 08/29 for his status after being discharged and to offer an ED follow-up appointment. Unable to reach pt, left message to call back. * Telephone Encounter - Desi Gutierrez - 09/11/2024 2:26 PM EDT Tc from pt to report was admitted at the [facility] 3 days ago. Diagnosis: pneumonia. documented in this encounter Plan of Treatment Not on file documented as of this encounter Visit Diagnoses Not on filedocumented in this encounter Additional Health Concerns Assessment Noted Time PHQ-9 Depression Total Score: 6 07/25/19 25 3:22 PM EDT documented as of this encounter Care Teams Tongue Trimmer Relationship Specialty Start Date End Date Sesar Pereyra MD [address] [place] [address] PCP - General Internal Medicine 03/01/21 [facility] 03/22/24 documented as of this encounter
--- OUTSIDE RECORDS SUMMARY | 2024-09-16 08:39 | XMS_ITS | Clinical Summary ---
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
--- OUTSIDE RECORDS SUMMARY | 2024-09-16 08:39 | XMS_ITS | Encounter Summary ---
Author Organization [facility] Address [address] [place] [address] Care Team Providers Care Multiple Pressure Riveter Operator Name Role Phone Yolande Nicholas DO Primary Care Pro vider Unavailable Anuj Priest DO Primary Care Provider [facility], Pcp Primary Care Provider Unavailabl e Reason for Visit * Reason Onset Date Comments Faxed Order 03/07/2020 Encounter Details Date Type Department Care Team Description 03/07/[address] [address] Yolande Nicholas DO Faxed Order Social History [...] TO BE SIGN AND FAX BACK TO [phone]. documented in this encounter Plan of Treatment Not on file documented as of this encounter Visit Diagnoses Not on filedocumented in this encounter Care Teams Multiple Pressure Riveter Operator Relationship Specialty Start Date End Date Yolande Nicholas DO PCP - General Internal Medicine 12/03/18 10/08/20 Anuj Priest DO PCP - General Internal Medicine 10/09/[address] [place] [address], Pcp PCP - General Internal Medicine 06/17/21 documented as of this encounter
--- OUTSIDE RECORDS SUMMARY | 2024-09-16 08:39 | XMS_ITS | Encounter Summary ---
Author Organization [facility] Address [address] [place] [address] Care Team Providers Care Accounts Receivable Supervisor Name Role Phone Yolande Nicholas DO Primary Care Pro vider Unavailable Anuj Priest DO Primary Care Provider [facility], Pcp Primary Care Provider Unavailabl e Reason for Visit * Reason Onset Date Comments Faxed Order 03/29/2020 Encounter Details Date Type Department Care Team Description 03/29/2020 Telephone Adult [address] [address] Yolande Nicholas DO Faxed Order Social History [...] TO BE SIGN AND FAX BACK TO [phone]. documented in this encounter Plan of Treatment Not on file documented as of this encounter Visit Diagnoses Not on filedocumented in this encounter Care Teams Accounts Receivable Supervisor Relationship Specialty Start Date End Date Yolande Nicholas DO PCP - General Internal Medicine 12/03/18 10/08/20 Anuj Priest DO PCP - General Internal Medicine 10/09/20 2 [facility], Pcp PCP - General Internal Medicine 06/17/21 documented as of this encounter
--- OUTSIDE RECORDS SUMMARY | 2024-09-16 08:39 | XMS_ITS | Encounter Summary ---
Author Organization [employer] Address 75 [facility] 7t [place] [address] Care Team Providers Care Wig Dresser Name Role Phone Sesar Pereyra MD Primary Care Provider +1- [phone] Encounter Details Date Type Department Care Team ([facility] st Contact Info) Description 11/01/2023 Orders Only [facility] CHC MED & PEDS [address] [place], [place] [phone] Sesar Pereyra MD [address] [place] [address] Social History Tobacco Use Types Packs/Day Years [...] documented as of this encounter Care Teams Wig Dresser Relationship Specialty Start Date End Date Sesar Pereyra MD [address] [place] [address] PCP - General Internal Medicine 03/01/21 [facility] 03/22/24 documented as of this encounter
--- OUTSIDE RECORDS SUMMARY | 2024-09-16 08:39 | XMS_ITS | Encounter Summary ---
Author Organization [facility] Address [address] [place] [address] Care Team Providers Care Batting Machine Operator Insulation Name Role Phone Yolande Nicholas DO Primary Care Pro vider Unavailable Anuj Priest DO Primary Care Provider [facility], Pcp Primary Care Provider Unavailabl e Encounter Details Date Type Department Care Team Description 03/13/2020 Pt. Non Urgent Medic al Question Adult Medicine [address] [address] Yolande Nicholas DO Social History Tobacco Use [...] on filedocumented in this encounter Care Teams Batting Machine Operator Insulation Relationship Specialty Start Date End Date Yolande Nicholas DO PCP - General Internal Medicine 12/03/18 10/08/20 Anuj Priest DO PCP - General Internal Medicine 10/09/20 2 [facility], Pcp PCP - General Internal Medicine 06/17/21 documented as of this encounter
--- OUTSIDE RECORDS SUMMARY | 2024-09-16 08:39 | XMS_ITS | Encounter Summary ---
Author Organization [employer] [employer] [facility] Address [address] [place] [address] Care Team Providers Care Mold Finisher Name Role Phone Annalee Jones MD Primary Care Provider Un available Yolande Nicholas DO Primary Care Pro vider Unavailable Anuj Priest DO Primary Care Provider Judy vailable Jj, Pcp Primary Care Provider Unavailabl e Encounter Details Date Type Department Care Team Description 08/01/2018 Transfer Records Medical Records [address] [place] [address] Abstract, Provider Social History Tobacco Use Types [...] on filedocumented in this encounter Care Teams Mold Finisher Relationship Specialty Start Date End Date Annalee Jones MD PCP - General Internal Medicine 01/06/17 9 Yolande Nicholas DO PCP - General Internal Medicine 12/03/18 10/08/20 Anuj Priest DO PCP - General Internal Medicine 10/09/20 2 Jj, Pcp PCP - General Internal Medicine 06/17/21 documented as of this encounter
--- OUTSIDE RECORDS SUMMARY | 2024-09-16 08:39 | XMS_ITS | Encounter Summary ---
Author Organization [facility] Address [address] [place] [address] Care Team Providers Care Abatement Worker Name Role Phone Yolande Nicholas DO Primary Care Pro vider Unavailable Anuj Priest DO Primary Care Provider [facility], Pcp Primary Care Provider Unavailabl e Reason for Visit * Reason Onset Date Comments VNA Call 02/25/2020 Encounter Details Date Type Department Care Team Description 02/25/2020 Telephone Adult Medicine [address] [address] Yolande Nicholas DO VNA Call Social History [...] on filedocumented in this encounter Care Teams Abatement Worker Relationship Specialty Start Date End Date Yolande Nicholas DO PCP - General Internal Medicine 12/03/18 10/08/20 Anuj Priest DO PCP - General Internal Medicine 10/09/[address] [place] [address], Pcp PCP - General Internal Medicine 06/17/21 documented as of this encounter
--- OUTSIDE RECORDS SUMMARY | 2024-09-16 08:39 | XMS_ITS | Encounter Summary ---
Author Organization [facility] Address [address] [place] [address] Care Team Providers Care Tableman Name Role Phone Yolande Nicholas DO Primary Care Pro vider Unavailable Anuj Priest DO Primary Care Provider [facility], Pcp Primary Care Provider Unavailabl e Reason for Visit * Reason Onset Date Comments Faxed Order 03/22/2020 Encounter Details Date Type Department Care Team Description 03/22/2020 Telephone Adult [address] [address] Yolande Nicholas DO Faxed Order Social History [...] review, sign, date, and fax back to [phone] * Telephone Encounter - Gerri Parra - 03/22/2020 12:47 PM EST [facility] IS FAXING ORDERS TO BE SIGN AND FAX BACK TO [phone]. documented in this encounter Plan of Treatment Not on file documented as of this encounter Visit Diagnoses Not on filedocumented in this encounter Care Teams Tableman Relationship Specialty Start Date End Date Yolande Nicholas DO PCP - General Internal Medicine 12/03/18 10/08/20 Anuj Priest DO PCP - General Internal Medicine 10/09/20 2 [facility], Pcp PCP - General Internal Medicine 06/17/21 documented as of this encounter
--- OUTSIDE RECORDS SUMMARY | 2024-09-16 08:39 | XMS_ITS | Encounter Summary ---
Author Organization [employer] Address [address] [facility] [place] [address] Care Team Providers Care Analysis Mgr Name Role Phone Sesar Pereyra MD Primary Care Provider +1- [phone] Reason for Referral * Consultation (Routine) - Closed Specialty Diagnoses / Procedures Referred By Wander reynolds Referred To Contact Geriatric Medicine Diagnoses Memory disturbance Sesar Pereyra MD [address] [place] [address] Phone: tel: fax: [facility] [address] [place] [address] Phone: tel: fax: Referral ID Status Reason Start Date Expiration Date V isits Requested Visits Authorized [id number] Closed Specialty Services Required 01/11/2024 01/10/2025 1 1 Encounter Details Date Type Department Care Team (Late st Contact Info) Description 01/11/2024 Orders Only [facility] CHC MED & PEDS [address] [place], [place] [phone] Sesar Pereyra MD [address] [place] [address] Memory disturbance (Primary Dx) Social History Tobacco [...] of this encounter Plan of Treatment Scheduled Referrals Name Type Priority Associated Diagnoses Orde r Schedule Referral to Geriatrics Outpatient Referral Routine Memory disturbance Expected: 01/11/2024 (Approximate), Expires: 01/10/2025 documented as of this encounter Visit Diagnoses Diagnosis Memory disturbance- Primary Memory loss documented in this encounter Additional Health Concerns Assessment Noted Time PHQ-9 Depression Total Score: 16 024 10:59 AM EDT documented as of this encounter Care Teams Analysis Mgr Relationship Specialty Start Date End Date Sesar Pereyra MD [address] [place] [address] PCP - General Internal Medicine 03/01/21 [facility] 03/22/24 documented as of this encounter
--- OUTSIDE RECORDS SUMMARY | 2024-09-16 08:39 | XMS_ITS | Encounter Summary ---
Author Organization [facility] Address [address] [place] [address] Care Team Providers Care Crystal Cutter Name Role Phone Annalee Jones MD Primary Care Provider Un available Yolande Nicholas DO Primary Care Pro vider Unavailable Anuj Priest DO Primary Care Provider Judy [facility], Pcp Primary Care Provider Unavailabl e Reason for Visit * Reason Onset Date Comments Bacteriologist Soil Feedback 08/27/2018 ortho Encounter Details Date Type Department Care Team Description 08/27/2018 Telephone Adult Medicine [address] [address] [facility] [address] [place] [address] Bacteriologist Soil Feedback (ortho) Social History Tobacco Use Types [...] a disc of the MRI [facility] Eligibility Clerk [facility] Department documented in this encounter Plan of Treatment Not on file documented as of this encounter Visit Diagnoses Not on filedocumented in this encounter Care Teams Crystal Cutter Relationship Specialty Start Date End Date Annalee Jones MD PCP - General Internal Medicine 01/06/17 9 Yolande Nicholas DO PCP - General Internal Medicine 12/03/18 10/08/20 Anuj Priest DO PCP - General Internal Medicine 10/09/20 2 [facility], Pcp PCP - General Internal Medicine 06/17/21 documented as of this encounter
--- OUTSIDE RECORDS SUMMARY | 2024-09-16 08:39 | XMS_ITS | Encounter Summary ---
Author Organization [employer] Address 75 [facility] 7t [place] [address] Care Team Providers Care Die Sinker Name Role Phone Sesar Pereyra MD Primary Care Provider +1- [phone] Reason for Visit * Reason Onset Date Comments Referral 01/02/2024 Encounter Details Date Type Department Care Team (Late st Contact Info) Description 01/02/2024 Telephone [facility] MEDICINE [address] [place] [address] Sesar Pereyra MD [address] [place], [place] [phone] Referral Social History Tobacco Use Types Packs/Day [...] Notes * Telephone Encounter - Essence De Jessu RN - 01/02/2024 11:31 AM EDT Noted. Will send message to PCP. * Telephone Encounter - Meliton Gilmore - 01/02/2024 10:48 AM EDT Tc from [place] [facility] requesting a referral for a gerontologist and would like to be sent to at [facility] in [place] documented in this encounter Plan of Treatment Not on file documented as of this encounter Visit Diagnoses Not on filedocumented in this encounter Additional Health Concerns Assessment Noted Time PHQ-9 Depression Total Score: 16 024 10:59 AM EDT documented as of this encounter Care Teams Die Sinker Relationship Specialty Start Date End Date Sesar Pereyra MD [address] [place] [address] PCP - General Internal Medicine 03/01/21 [facility] 03/22/24 documented as of this encounter
--- OUTSIDE RECORDS SUMMARY | 2024-09-16 08:39 | XMS_ITS | Encounter Summary ---
Author Organization [employer] Address 75 [facility] 7t [place] [address] Care Team Providers Care Deputy Felony Clerk Name Role Phone Sesar Pereyra MD Primary Care Provider +1- [phone] Reason for Visit * Reason Comments Med Refill Encounter Details Date Type Department Care Team ([facility] st Contact Info) Description 10/30/2023 Refill [facility] CHC MED & PEDS [address] [place], [place] [phone] Sesar Pereyra MD [address] [place], [place] [phone] PVD (peripheral vascular disease) (CMS/HCC); Longstanding persistent [...] documented as of this encounter Care Teams Deputy Felony Clerk Relationship Specialty Start Date End Date Sesar Pereyra MD [address] [place] [address] PCP - General Internal Medicine 03/01/21 [facility] 03/22/24 documented as of this encounter
--- OUTSIDE RECORDS SUMMARY | 2024-09-16 08:39 | XMS_ITS | Encounter Summary ---
Author Organization [facility] Address [address] [place] [address] Care Team Providers Care Marketing Clerk Name Role Phone Yolande Nicholas DO Primary Care Pro vider Unavailable Anuj Priest DO Primary Care Provider [facility], Pcp Primary Care Provider Unavailabl e Reason for Visit * Reason Onset Date Comments Faxed Refill 02/25/2020 Encounter Details Date Type Department Care Team Description 02/25/2020 Refill Adult Medicine [address] [address] Yolande Nicholas DO Faxed Refill Social History [...] - MEDICARE / Plan: MEDICARE FFS $5 [id number] / Product Type: MEDICARE [id number] documented in this encounter Plan of Treatment Not on file documented as of this encounter Visit Diagnoses Not on filedocumented in this encounter Care Teams Marketing Clerk Relationship Specialty Start Date End Date Yolande Nicholas DO PCP - General Internal Medicine 12/03/18 10/08/20 Anuj Priest DO PCP - General Internal Medicine 10/09/[address] [place] [address], Pcp PCP - General Internal Medicine 06/17/21 documented as of this encounter
--- OUTSIDE RECORDS SUMMARY | 2024-09-16 08:39 | XMS_ITS | Encounter Summary ---
Author Organization [facility] Address [address] [place] [address] Care Team Providers Care Internet Merchant Name Role Phone Annalee Jones MD Primary Care Provider Un available Yolande Nicholas DO Primary Care Pro vider Unavailable Anuj Priest DO Primary Care Provider Judy vailable [facility], Pcp Primary Care Provider Unavailabl e Encounter Details Date Type Department Care Team Description 09/04/2018 Release of Information Medical Records [address] [place] [address] Abstract, Provider Social History Tobacco Use Types [...] filedocumented in this encounter Care Teams Internet Merchant Relationship Specialty Start Date End Date Annalee Jones MD PCP - General Internal Medicine 01/06/17 9 Yolande Nicholas DO PCP - General Internal Medicine 12/03/18 10/08/20 Anuj Priest DO PCP - General Internal Medicine 10/09/20 2 Jj, Pcp PCP - General Internal Medicine 06/17/21 documented as of this encounter
--- OUTSIDE RECORDS SUMMARY | 2024-09-16 08:40 | XMS_ITS | Encounter Summary ---
Author Organization [facility] Address [address] [place] [address] Care Team Providers Care Epic Interface Analyst Name Role Phone Ghassan Burciaga MD Primary Care Provider Unavail able Pierre Arevalo MD Primary Care Provider Judy vailable Gerson Dawson MD Primary Care Provider Unavail able [facility], Pcp Primary Care Provider Unavailabl e Coleman Mccarthy MD Primary Care Provider Unavaila Ayo Demarco MD Primary Care Provider [phone] Annalee Jones MD Primary Care Provider Un available Pascual Nicholasabela DO Primary Care Pro vider Unavailable Anuj Priest DO Primary Care Provider Judy vailable [facility], Pcp Primary Care Provider Unavailabl e Encounter Details Date Type Department Care Team Description 11/03/2006 Hospital Medical Records [address] [place] [address] Tyler Bloom MD Social History Tobacco Use [...] filedocumented in this encounter Care Teams Epic Interface Analyst Relationship Specialty Start Date End Date Ghassan Burciaga MD PCP - General 07/24/00 05/06/13 Pierre Arevalo MD PCP - General Internal Medicine 05/07/13 4 Gerson Dawson MD PCP - General Internal Medicine 01/30/14 03/20/14 [facility], Pcp PCP - General Internal Medicine 03/21/14 05/06/14 Coleman Mccarthy MD PCP - General Internal Medicine 05/07/14 07/18/16 Ayo Carpio MD [address] [place], [place] [phone] PCP - General Internal Medicine 07/19/16 01/05/17 Annalee Jones MD [address] [place], [place] [phone] PCP - General Internal Medicine 01/06/17 12/02/18 Yolande Nicholas, DO [address] [place] [address] PCP - General Internal Medicine 12/03/18 10/08/20 Anuj Priest, [address] [place] [address] PCP - General Internal Medicine 10/09/20 06/16/21 [facility], Pcp PCP - General Internal Medicine 06/17/21 documented as of this encounter
--- OUTSIDE RECORDS SUMMARY | 2024-09-16 08:40 | XMS_ITS | Encounter Summary ---
Author Organization [employer] [facility] Address [address] [place] [address] Care Team Providers Care Product Technician Name Role Phone Ghassan Burciaga MD Primary Care Provider Unavail able Pierre Arevalo MD Primary Care Provider Judy vailable Gerson Dawson MD Primary Care Provider Unavail able [facility], Pcp Primary Care Provider Unavailabl e Coleman Mccarthy MD Primary Care Provider Unavaila Ayo Demarco MD Primary Care Provider [phone] Annalee Jones MD Primary Care Provider Un available Pascual Nicholasabela DO Primary Care Pro vider Unavailable Anuj Priest DO Primary Care Provider Judy vailable [facility], Pcp Primary Care Provider Unavailabl e Encounter Details Date Type Department Care Team Description 08/06/2010 Release of Information Medical Records [address] [place] [address] Abstract, Provider Social History Tobacco Use Types [...] filedocumented in this encounter Care Teams Product Technician Relationship Specialty Start Date End Date Ghassan Burciaga MD PCP - General 07/24/00 05/06/13 Pierre Arevalo MD PCP - General Internal Medicine 05/07/13 4 Gerson Dawson MD PCP - General Internal Medicine 01/30/14 03/20/14 [facility], Pcp PCP - General Internal Medicine 03/21/14 05/06/14 Coleman Mccarthy MD PCP - General Internal Medicine 05/07/14 07/18/16 Ayo Carpio MD [address] [place] [address] PCP - General Internal Medicine 07/19/16 01/05/17 Annalee Jones MD [address] [place] [address] PCP - General Internal Medicine 01/06/17 12/02/18 Yolande Nicholas, [address] [place] [address] PCP - General Internal Medicine 12/03/18 10/08/20 Anuj Priest DO [address] [place] [address] PCP - General Internal Medicine 10/09/20 06/16/21 [facility], Pcp PCP - General Internal Medicine 06/17/21 documented as of this encounter
--- OUTSIDE RECORDS SUMMARY | 2024-09-16 08:40 | XMS_ITS | Encounter Summary ---
Author Organization [facility] Address [address] [place] [address] Care Team Providers Care Ship'S Pilot Name Role Phone Yolande Nicholas DO Primary Care Pro vider Unavailable Anuj Priest DO Primary Care Provider [facility], Pcp Primary Care Provider [facility] Encounter Details Date Type Department Care Team Description 05/20/2019 Release of Information Medical Records [address] [place] [address] Abstract, Provider Social History Tobacco Use Types [...] EST AUTHORIZATION TO OBTAIN RECORDS MAILED TO [facility]. documented in this encounter Plan of Treatment Not on file documented as of this encounter Visit Diagnoses Not on filedocumented in this encounter Care Teams Ship'S Pilot Relationship Specialty Start Date End Date Yolande Nicholas DO PCP - General Internal Medicine 12/03/18 10/08/20 Anuj Priest DO PCP - General Internal Medicine 10/09/20 2 2 [facility], Pcp PCP - General Internal Medicine 06/17/21 documented as of this encounter
--- OUTSIDE RECORDS SUMMARY | 2024-09-16 08:40 | XMS_ITS | Encounter Summary ---
Author Organization [employer] [facility] Address [address] [place] [address] Care Team Providers Care Director Of Physician Practices Name Role Phone Yolande Nicholas DO Primary Care Pro vider Unavailable Anuj Priest DO Primary Care Provider Judy álvarez Replaced By [facility], Pcp Primary Care Provider Unavailabl e Encounter Details Date Type Department Care Team Description 03/06/2019 Field Clerk Report Medical Records [address] [place] [address] Adilia Navarro PA-C Social History Tobacco Use [...] in this encounter Care Teams Director Of Physician Practices Relationship Specialty Start Date End Date Yolande Nicholas DO PCP - General Internal Medicine 12/03/18 10/08/20 Anuj Priest DO PCP - General Internal Medicine 10/09/20 Jj, Pcp PCP - General Internal Medicine 06/17/21 documented as of this encounter
--- OUTSIDE RECORDS SUMMARY | 2024-09-16 08:40 | XMS_ITS | Encounter Summary ---
Author Organization [employer] Address [address] [facility] 7 [place] [address] Care Team Providers Care Machine Strap Buckler Name Role Phone Sesar Pereyra MD Primary Care Provider [phone] Reason for Visit * Reason Comments Med Refill Encounter Details Date Type Department Care Team ([facility] st Contact Info) Description 06/10/2022 Refill [facility] & PEDS [address] [place] [address] Sesar Pereyra MD [address] [place], [place] [phone] Primary insomnia Social History Tobacco Use Types [...] sleep documented in this encounter Care Teams Machine Strap Buckler Relationship Specialty Start Date End Date Sesar Pereyra MD [address] [place] [address] PCP - General Internal Medicine 03/01/21 [facility] 03/22/24 documented as of this encounter
--- OUTSIDE RECORDS SUMMARY | 2024-09-16 08:40 | XMS_ITS | Encounter Summary ---
Author Organization [facility] Address [address] [place] [address] Care Team Providers Care Vertical Boring Mill Operator Name Role Phone Yolande Nicholas DO Primary Care Pro vider Unavailable Anuj Priest DO Primary Care Provider [facility], Pcp Primary Care Provider Unavailabl e Reason for Visit * Reason Onset Date Comments Provider Call Back 04/29/2019 Encounter Details Date Type Department Care Team Description 04/29/2019 Telephone Adult [address] [address] Yolande Nicholas DO Provider Call Back Social [...] EST Im not aware of any in [place] * Telephone Encounter - Minerva Kan R.N. - 04/29/2019 3:[address] Yolande Gomez Are you aware of a detox in [facility] ? * Telephone Encounter - Lonny Lazarus - 04/29/2019 1:15 PM EST Patient relapsed for alcohol abuse 3 days ago and requests to speak to Dr. Yolande Gomez or her team. Patient states that he does want to get better. The patient says Dr. Alvarez mentioned a rehab facility in [place] last time, but he cannot remember the address, phone number, or name of the facility. documented in this encounter Plan of Treatment Not on file documented as of this encounter Visit Diagnoses Not on filedocumented in this encounter Care Teams Vertical Boring Mill Operator Relationship Specialty Start Date End Date Yolande Nicholas DO PCP - General Internal Medicine 12/03/18 10/08/20 Anuj Priest DO PCP - General Internal Medicine 10/09/[address] [place] [address], Pcp PCP - General Internal Medicine 06/17/21 documented as of this encounter
--- OUTSIDE RECORDS SUMMARY | 2024-09-16 08:40 | XMS_ITS | Encounter Summary ---
Author Organization [employer] Address [address] [facility] 7t [place] [address] Care Team Providers Care Coreroom Foundry Laborer Name Role Phone Sesar Pereyra MD Primary Care Provider [phone] Reason for Visit * Reason Onset Date Comments Lab Orders 05/30/2024 Referral 05/30/2024 Encounter Details Date Type Department Care Team (Late st Contact Info) Description 05/30/2024 Telephone [facility] MEDICINE [address] [place] [address] Sesar Pereyra MD [address] [place], [place] [phone] Lab Orders; Referral Social History Tobacco Use [...] * Telephone Encounter - Thanh Floyd - 05/30/2024 4:03 PM EST Tc from [...] documented as of this encounter Care Teams Coreroom Foundry Laborer Relationship Specialty Start Date End Date Sesar Pereyra MD [address] [place] [address] PCP - General Internal Medicine [facility]01[facility] documented as of this encounter
--- OUTSIDE RECORDS SUMMARY | 2024-09-16 08:40 | XMS_ITS | Encounter Summary ---
Author Organization [employer] [facility] Address [address] [place] [address] Care Team Providers Care Viscose Department Worker Name Role Phone Yolande Nicholas DO Primary Care Pro vider Unavailable Anuj Priest DO Primary Care Provider [facility], Pcp Primary Care Provider Unavailabl e Reason for Visit * Reason Onset Date Comments Leveling Machine Operator Feedback 02/18/[address] Encounter Details Date Type Department Care Team Description 02/18/2019 Telephone Adult [address] [address] oYlande Nicholas DO Leveling Machine Operator Feedback (Low Dose CT) Social History Tobacco [...] on filedocumented in this encounter Care Teams Viscose Department Worker Relationship Specialty Start Date End Date Yolande Nicholas DO PCP - General Internal Medicine 12/03/18 10/08/20 Anuj Priest DO PCP - General Internal Medicine 10/09/20 2 [facility], Pcp PCP - General Internal Medicine 06/17/21 documented as of this encounter
--- OUTSIDE RECORDS SUMMARY | 2024-09-16 08:40 | XMS_ITS | Encounter Summary ---
Author Organization [facility] Address [address] [place] [address] Care Team Providers Care Medical Assisting Program Director Name Role Phone Ghassan Burciaga MD Primary Care Provider Unavail able Pierre Arevalo MD Primary Care Provider Judy vailable Gerson Dawson MD Primary Care Provider Unavail able [facility], Pcp Primary Care Provider Unavailabl e Coleman [...] Team Description 11/04/2006 Hospital Medical Records [address] [place], [place] [id number] [place] [address] Social History Tobacco Use Types Packs/Day Years [...] filedocumented in this encounter Care Teams Medical Assisting Program Director Relationship Specialty Start Date End Date Ghassan Burciaga MD PCP - General 07/24/00 05/06/13 Pierre Arevalo MD PCP - General Internal Medicine 05/07/13 4 Gerson Dawson MD PCP - General Internal Medicine 01/30/14 03/20/14 [facility], Pcp PCP - General Internal Medicine 03/21/14 05/06/14 Coleman Mccarthy MD PCP - General Internal Medicine 05/07/14 07/18/16 Ayo Carpio MD [address] [place], [place] [phone] PCP - General Internal Medicine 07/19/16 01/05/17 Annalee Jones MD [address] [place], [place] [address] PCP - General Internal Medicine 01/06/17 12/02/18 Yolande Nicholas DO [address] [place] [address] PCP - General Internal Medicine 12/03/18 10/08/20 Anuj Priest DO [address] [place] [address] PCP - General Internal Medicine 10/09/20 06/16/21 [facility], Pcp PCP - General Internal Medicine 06/17/21 documented as of this encounter
--- OUTSIDE RECORDS SUMMARY | 2024-09-16 08:40 | XMS_ITS | Encounter Summary ---
Author [facility] Address [address] [place] [address] Care Team Providers Care Sas Clinical Programmer Name Role Phone Yolande Nicholas DO Primary Care Pro vider Unavailable Anuj Priest DO Primary Care Provider [facility], Pcp Primary Care Provider Unavailabl e Reason for Visit * Reason Onset Date Comments Faxed Refill 06/06/2019 HYDROXYZINE Encounter Details Date Type Department Care Team Description 06/06/2019 Refill Adult Medicine [address] [address] Yolande Nicholas DO Faxed Refill (HYDROXYZINE ) [...] MEDICARE / Plan: MEDICARE FFS $5 [facility] [id number] / Product Type: MEDICARE [id number] documented in this encounter Plan of Treatment Not on file documented as of this encounter Visit Diagnoses Not on filedocumented in this encounter Care Teams Sas Clinical Programmer Relationship Specialty Start Date End Date Yolande Nicholas DO PCP - General Internal Medicine 12/03/18 10/08/20 Anuj Priest DO PCP - General Internal Medicine 10/09/[address] [place] [address], Pcp PCP - General Internal Medicine 06/17/21 documented as of this encounter
--- OUTSIDE RECORDS SUMMARY | 2024-09-16 08:40 | XMS_ITS | Encounter Summary ---
Author Organization [facility] Address [address] [place] [address] Care Team Providers Care Plow Mechanic Name Role Phone Yolande Nicholas DO Primary Care Pro vider Unavailable Anuj Priest DO Primary Care Provider [facility], Pcp Primary Care Provider Unavailabl e Reason for Visit * Reason Onset Date Comments Faxed Refill 05/30/2019 Encounter Details Date Type Department Care Team Description 05/30/2019 Refill Adult Medicine [address] [address] Yolande Nicholas DO Faxed Refill Social History [...] the RX # listed on the fax? [id number] Patients current insurance carrier is: Payor: [facility] - MEDICARE / Plan: MEDIC[facility] FFS [id number] / Product Type: MEDICARE [id number] documented in this encounter Plan of Treatment Not on file documented as of this encounter Visit Diagnoses Not on filedocumented in this encounter Care Teams Plow Mechanic Relationship Specialty Start Date End Date Yolande Nicholas DO PCP - General Internal Medicine 12/03/18 10/08/20 Anuj Priest DO PCP - General Internal Medicine 10/09/[address] [place] [address], Pcp PCP - General Internal Medicine 06/17/21 documented as of this encounter
--- OUTSIDE RECORDS SUMMARY | 2024-09-16 08:40 | XMS_ITS | Encounter Summary ---
Author Organization [employer] Address [address] [facility] 7t [place] [address] Care Team Providers Care Glass Curvature Gauger Name Role Phone Sesar Pereyra MD Primary Care Provider [phone]- [phone] Encounter Details Date Type Department Care Team ([facility] st Contact Info) Description 05/30/2024 Telephone [facility] MEDICINE [address] [place] [address] Sesar Pereyra MD [address] [place] [address] Social History Tobacco Use Types Packs/Day Years [...] documented as of this encounter Care Teams Glass Curvature Gauger Relationship Specialty Start Date End Date Sesar Pereyra MD [address] [place] [address] PCP - General Internal Medicine 03/01/21 [facility] 03/22/24 documented as of this encounter
--- OUTSIDE RECORDS SUMMARY | 2024-09-16 08:40 | XMS_ITS | Encounter Summary ---
Author Organization [employer] Address [address] [facility] 7t [place] [address] Care Team Providers Care Central Processing Tech Name Role Phone Sesar Pereyra MD Primary Care Provider [phone]- [phone] Reason for Visit * Reason Onset Date Comments fyi 05/28/2024 Encounter Details Date Type Department Care Team (Late st Contact Info) Description 05/28/2024 Telephone [facility] MEDICINE [address] [place] [address] Sesar Pereyra MD [address] [place], [place] [phone] fyi Social History Tobacco Use Types Packs/Day [...] - 05/28/2024 9:37 AM EST Tc from [facility] informing pt verbalized to her that [...] documented as of this encounter Care Teams Central Processing Tech Relationship Specialty Start Date End Date Sesar Pereyra MD [address] [place] [address] PCP - General Internal Medicine 03/01/21 [facility] 03/22/24 documented as of this encounter
--- OUTSIDE RECORDS SUMMARY | 2024-09-16 08:40 | XMS_ITS | Encounter Summary ---
Author Organization [employer] Address [address] [facility] 7t [place] [address] Care Team Providers Care Plug Making Operator Name Role Phone Sesar Pereyra MD Primary Care Provider [phone] Reason for Visit * Reason Onset Date Comments Med Refill 04/18/2024 Encounter Details Date Type Department Care Team ([facility] st Contact Info) Description 04/18/2024 Telephone [facility] MEDICINE [address] [place] [address] Sesar Pereyra MD [address] [place] [address] Med Refill Social History Tobacco Use Types [...] needing refill : To be sent to: [facility] - [facility] - [address] [facility] [address] documented in this encounter Plan of Treatment Not on file documented as of this encounter Visit Diagnoses Not on filedocumented in this encounter Additional Health Concerns Assessment Noted Time PHQ-9 Depression Total Score: 16 024 10:59 AM EDT documented as of this encounter Care Teams Plug Making Operator Relationship Specialty Start Date End Date Sesar Pereyra MD [address] [place] [address] PCP - General Internal Medicine 03/01/21 [facility] 03/22/24 documented as of this encounter
--- OUTSIDE RECORDS SUMMARY | 2024-09-16 08:40 | XMS_ITS | Encounter Summary ---
Author Organization [facility] Address [address] [place] [address] Care Team Providers Care General Counsel Name Role Phone Yolande Nicholas DO Primary Care Pro vider Unavailable Anuj Priest DO Primary Care Provider Judy Gardner, Pcp Primary Care Provider Unavailabl e Encounter Details Date Type Department Care Team Description 03/14/2019 Release of Information Medical Records [address] [place] [address] Abstract, Provider Social History Tobacco Use Types [...] filedocumented in this encounter Care Teams General Counsel Relationship Specialty Start Date End Date Yolande Nicholas DO PCP - General Internal Medicine 12/03/18 10/08/20 Anuj Priest DO PCP - General Internal Medicine 10/09/20 2 Jj, Pcp PCP - General Internal Medicine 06/17/21 documented as of this encounter
== END 2024-09-16 09:17 | disposition home or self-care (01) ==
LOC: HO.HCS 08:32
PROVIDERS: PCP Internal Medicine; Visit Provider Nurse Practitioner Family
DX: I50.9 Heart failure, unspecified (principal); I47.10 Supraventricular tachycardia, unspecified; I10 Essential (primary) hypertension; I48.0 Paroxysmal atrial fibrillation; I25.10 Atherosclerotic heart disease of native coronary artery without angina pectoris; Z98.890 Other specified postprocedural states; I73.9 Peripheral vascular disease, unspecified; I71.20 Thoracic aortic aneurysm, without rupture, unspecified
CPT/HCPCS: 93010; 99214; G2211

== ENCOUNTER 2024-09-16 08:31 | Outpatient (REF) | payer MEDICARE, MEDICAID, SELFPAY ==
--- OUTSIDE RECORDS SUMMARY | 2024-09-16 09:42 | XMS_ITS | Encounter Summary ---
Author Organization [facility] Address [address] [place] [address] Care Team Providers Care Activity Specialist Name Role Phone Yolande Nicholas DO Primary Care Pro vider Unavailable Anuj Priest DO Primary Care Provider [facility], Pcp Primary Care Provider Unavailabl e Reason for Visit * Reason Onset Date Comments anxiety 09/17/2019 Encounter Details Date Type Department Care Team Description 09/17/2019 Pt. Non Urgent Medic al Question Adult Medicine [address] [address] Yolande Nicholas DO Social History Tobacco Use [...] 10 righr now after getting out of [facility] for the covid 19 my girl friend it seems like i am a different person. You have now idea what i went through there in the hospit al and coming home in this of anxiety. I need help like i said the visiting nurse sugested i take ativan for my anxiety. My therpist Ava from [facility] said i should be taking a higher dose ofxienty med. If you have any kind of syphinthy for me . To get me through this difficult time you will help me with this terrible anxiety Alex Nettles documented in this encounter Plan of Treatment Not on file documented as of this encounter Visit Diagnoses Not on filedocumented in this encounter Care Teams Activity Specialist Relationship Specialty Start Date End Date Yolande Nicholas DO PCP - General Internal Medicine 12/03/18 10/08/20 Anuj Priest DO PCP - General Internal Medicine 10/09/[address] [place] [address], Pcp PCP - General Internal Medicine 06/17/21 documented as of this encounter
--- OUTSIDE RECORDS SUMMARY | 2024-09-16 09:42 | XMS_ITS | Encounter Summary ---
Author Organization [employer] [facility] Address [address] [place] [address] Care Team Providers Care Mechanical Engineering Manager Name Role Phone Ghassan Burciaga MD Primary Care Provider Unavail able Pierre Arevalo MD Primary Care Provider Judy vailable Gerson Dawson MD Primary Care Provider Unavail able [facility], Pcp Primary Care Provider Unavailabl Coleman Sampson MD Primary Care Provider Unavaila Ayo Demarco MD Primary Care Provider [phone] Annalee Jones MD Primary Care Provider Un available Pascual Nicholasabela DO Primary Care Pro vider Unavailable Anuj Priest DO Primary Care Provider Judy vailable [facility], Pcp Primary Care Provider Unavailabl e Encounter Details Date Type Department Care Team Description 06/27/2011 Business Doc Medical Records [address] [place] [address] Abstract, Provider Social History Tobacco Use Types [...] filedocumented in this encounter Care Teams Mechanical Engineering Manager Relationship Specialty Start Date End Date Ghassan Burciaga MD PCP - General 07/24/00 05/06/13 Pierre Arevalo MD PCP - General Internal Medicine 05/07/13 4 Gerson Dawson MD PCP - General Internal Medicine 01/30/14 03/20/14 [facility], Pcp PCP - General Internal Medicine 03/21/14 05/06/14 Coleman Mccarthy MD PCP - General Internal Medicine 05/07/14 07/18/16 Ayo Carpio MD [address] [place], [place] [phone] PCP - General Internal Medicine 07/19/16 01/05/17 Annalee Jones MD [address] [place], [place] [phone] PCP - General Internal Medicine 01/06/17 12/02/18 Yolande Nicholas DO [address] [place] [address] PCP - General Internal Medicine 12/03/18 10/08/20 Anuj Priest DO [address] [place] [address] PCP - General Internal Medicine 10/09/20 06/16/21 [facility], Pcp PCP - General Internal Medicine 06/17/21 documented as of this encounter
--- OUTSIDE RECORDS SUMMARY | 2024-09-16 09:42 | XMS_ITS | Encounter Summary ---
Author Organization [facility] Address [address] [place] [address] Care Team Providers Care Heater Operator Name Role Phone Yolande Nicholas DO Primary Care Pro vider Unavailable Anuj Priest DO Primary Care Provider [facility], Pcp Primary Care Provider Unavailabl e Reason for Visit * Reason Onset Date Comments Provider Call Back 11/08/2019 Encounter Details Date Type Department Care Team Description 11/08/2019 Telephone Adult Medicine [address] [address] Yolande Nicholas DO Provider Call Back Social [...] Castillo - 11/08/2019 9:02 AM EDT Patients vest finisher Ame , left a voicemail on patient services answering machine about their narcotic appeal decision. She would like a call back to know the outcome. Please give her a call and tellthem julian. Thank you. documented in this encounter Plan of Treatment Not on file documented as of this encounter Visit Diagnoses Not on filedocumented in this encounter Care Teams Heater Operator Relationship Specialty Start Date End Date Yolande Nicholas DO PCP - General Internal Medicine 12/03/18 10/08/20 Anuj Priest DO PCP - General Internal Medicine 10/09/20 2 [facility], Pcp PCP - General Internal Medicine 06/17/21 documented as of this encounter
--- OUTSIDE RECORDS SUMMARY | 2024-09-16 09:42 | XMS_ITS | Encounter Summary ---
Author Organization [facility] Address [address] [place] [address] Care Team Providers Care Circus Supervisor Name Role Phone Yolande Nicholas DO Primary Care Pro vider Unavailable Anuj Priest DO Primary Care Provider Judy Gardner, Pcp Primary Care Provider Unavailabl e Encounter Details Date Type Department Care Team Description 09/20/2019 Pt. Non Urgent Medic al Question Adult Medicine [address] [address] Yolande Nicholas DO Social History Tobacco Use [...] on filedocumented in this encounter Care Teams Circus Supervisor Relationship Specialty Start Date End Date Yolande Nicholas DO PCP - General Internal Medicine 12/03/18 10/08/20 Anuj Priest DO PCP - General Internal Medicine 10/09/20 Molly Gardner, Pcp PCP - General Internal Medicine 06/17/21 documented as of this encounter
--- OUTSIDE RECORDS SUMMARY | 2024-09-16 09:42 | XMS_ITS | Encounter Summary ---
Author Organization [facility] Address [address] [place] [address] Care Team Providers Care Faculty Neuropsychologist Name Role Phone Yolande Nicholas DO Primary Care Pro vider Unavailable Anuj Priest DO Primary Care Provider [facility], Pcp Primary Care Provider Unavailabl e Reason for Visit * Reason Onset Date Comments Faxed Order 09/20/2019 Encounter Details Date Type Department Care Team Description 09/20/2019 Telephone Adult [address] [address] Yolande Nicholas DO Faxed Order Social History [...] to be signed and faxed back to [phone] . documented in this encounter Plan of Treatment Not on file documented as of this encounter Visit Diagnoses Not on filedocumented in this encounter Care Teams Faculty Neuropsychologist Relationship Specialty Start Date End Date Yolande Nicholas DO PCP - General Internal Medicine 12/03/18 10/08/20 Anuj Priest DO PCP - General Internal Medicine 10/09/[address] [place] [address], Pcp PCP - General Internal Medicine 06/17/21 documented as of this encounter
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
--- OUTSIDE RECORDS SUMMARY | 2024-09-16 09:42 | XMS_ITS | Encounter Summary ---
Author Organization [employer] [facility] Address [address] [place] [address] Care Team Providers Care Presser Machine Name Role Phone Ghassan Burciaga MD Primary Care Provider Unavail able Pierre Arevalo MD Primary Care Provider Judy vailable Gerson Dawson MD Primary Care Provider Unavail able [facility], Pcp Primary Care Provider Unavailabl e Coleman Mccarthy MD Primary Care Provider Unavaila Ayo Demarco MD Primary Care Provider [phone] Annalee Jones MD Primary Care Provider Un available Pascual Nicholasabela DO Primary Care Pro vider Unavailable Anuj Priest DO Primary Care Provider Judy vailable [facility], Pcp Primary Care Provider Unavailabl e Encounter Details Date Type Department Care Team Description 09/21/2012 Cnc Manufacturing Engineer Report Medical Records [address] [place] [address] Anuj Easton Social History Tobacco Use Types [...] on filedocumented in this encounter Care Teams Presser Machine Relationship Specialty Start Date End Date Ghassan Burciaga MD PCP - General 07/24/00 05/06/13 Pierre Arevalo MD PCP - General Internal Medicine 05/07/13 4 Gerson Dawson MD PCP - General Internal Medicine 01/30/14 03/20/14 [facility], Pcp PCP - General Internal Medicine 03/21/14 05/06/14 Coleman Mccarthy MD PCP - General Internal Medicine 05/07/14 07/18/16 Ayo Carpio MD [address] [place], [place] [address] PCP - General Internal Medicine 07/19/16 01/05/17 Annalee Jones MD [address] [place], [place] [address] PCP - General Internal Medicine 01/06/17 12/02/18 Yolande Nicholas DO [address] [place] [address] PCP - General Internal Medicine 12/03/18 10/08/20 Anuj Priest DO [address] [place] [address] PCP - General Internal Medicine 10/09/20 06/16/21 [facility], Pcp PCP - General Internal Medicine 06/17/21 documented as of this encounter
--- OUTSIDE RECORDS SUMMARY | 2024-09-16 09:42 | XMS_ITS | Encounter Summary ---
Author Organization [facility] Address [address] [place] [address] Care Team Providers Care Cyber Security Analyst Name Role Phone Yolande Nicholas DO Primary Care Pro vider Unavailable Anuj Priest DO Primary Care Provider [facility], Pcp Primary Care Provider Unavailabl e Reason for Visit * Reason Onset Date Comments Faxed Refill 09/10/2019 Encounter Details Date Type Department Care Team Description 09/10/2019 Refill Adult Medicine [address] [address] Yolande Nicholas DO Faxed Refill Social History [...] N/A Patients current insurance carrier is: Payor: [facility] / Plan: [facility]ICARE FFS [facility] [id number] / Product Type: MEDICARE [id number] documented in this encounter Plan of Treatment Not on file documented as of this encounter Visit Diagnoses Not on filedocumented in this encounter Care Teams Cyber Security Analyst Relationship Specialty Start Date End Date Yolande Nicholas DO PCP - General Internal Medicine 12/03/18 10/08/20 Anuj Priest DO PCP - General Internal Medicine 10/09/20 2 [facility], Pcp PCP - General Internal Medicine 06/17/21 documented as of this encounter
--- OUTSIDE RECORDS SUMMARY | 2024-09-16 09:42 | XMS_ITS | Encounter Summary ---
Author Organization [facility] [employer] [facility] Address [address] [place] [address] Care Team Providers Care Engineer Rf Deployment Name Role Phone Ghassan Burciaga MD Primary Care Provider Unavail able Pierre Arevalo MD Primary Care Provider Judy vailable Gerson Dawson MD Primary Care Provider Unavail able [facility], Pcp Primary Care Provider Unavailabl e Coleman Mccarthy MD Primary Care Provider Unavaila Ayo Demarco MD Primary Care Provider [phone] Annalee Jones MD Primary Care Provider Un available Kim Banegas Yolande DO Primary Care Pro vider Unavailable Anuj Priest DO Primary Care Provider Judy vailable [facility], Pcp Primary Care Provider Unavailabl e Encounter Details Date Type Department Care Team Description 06/25/2011 Pt. Non Urgent Medic al Question Medicine/Pediatrics - [address] [address] Ghassan Burciaga MD Social History Tobacco Use [...] on filedocumented in this encounter Care Teams Engineer Rf Deployment Relationship Specialty Start Date End Date Ghassan Burciaga MD PCP - General 07/24/00 05/06/13 Pierre Arevalo MD PCP - General Internal Medicine 05/07/13 4 Gerson Dawson MD PCP - General Internal Medicine 01/30/14 03/20/14 [facility], Pcp PCP - General Internal Medicine 03/21/14 05/06/14 Coleman Mccarthy MD PCP - General Internal Medicine 05/07/14 07/18/16 Ayo Carpio MD [address] [place] [address] PCP - General Internal Medicine 07/19/16 01/05/17 Annalee Jones MD [address] [place] [address] PCP - General Internal Medicine 01/06/17 12/02/18 Yolande Nicholas, [address] [address] PCP - General Internal Medicine 12/03/18 10/08/20 Anuj Priest, [address] [address] PCP - General Internal Medicine 10/09/20 06/16/21 [facility], Pcp PCP - General Internal Medicine 06/17/21 documented as of this encounter
--- OUTSIDE RECORDS SUMMARY | 2024-09-16 09:42 | XMS_ITS | Encounter Summary ---
Author Organization [facility] Address [address] [place] [address] Care Team Providers Care Personal Caregiver Name Role Phone Yolande Nicholas DO Primary Care Pro vider Unavailable Anuj Priest DO Primary Care Provider Judy Gardner, Pcp Primary Care Provider Unavailabl e Encounter Details Date Type Department Care Team Description 12/26/2019 Hospital Medical Records [address] [place] [address] Social History Tobacco Use Types Packs/Day Years [...] on filedocumented in this encounter Care Teams Personal Caregiver Relationship Specialty Start Date End Date Yolande Nicholas DO PCP - General Internal Medicine 12/03/18 10/08/20 Anuj Priest DO PCP - General Internal Medicine 10/09/20 2 Jose G Gardner PCP - General Internal Medicine 06/17/21 documented as of this encounter
--- OUTSIDE RECORDS SUMMARY | 2024-09-16 09:42 | XMS_ITS | Encounter Summary ---
Author Organization [facility] Address [address] [place] [address] Care Team Providers Care Protein Purification Scientist Name Role Phone Yolande Nicholas DO Primary Care Pro vider Unavailable Anuj Priest DO Primary Care Provider Judy Gardner, Pcp Primary Care Provider Unavailabl e Encounter Details Date Type Department Care Team Description 09/26/2019 Telephone Adult Medicine B - [place] [address] [place] [address] Teri Layton MD Social History Tobacco Use [...] on filedocumented in this encounter Care Teams Protein Purification Scientist Relationship Specialty Start Date End Date Yolande Nicholas DO PCP - General Internal Medicine 12/03/18 10/08/20 Anuj Priest DO PCP - General Internal Medicine 10/09/2006/16/ 2 Jj, Pcp PCP - General Internal Medicine 06/17/21 documented as of this encounter
--- OUTSIDE RECORDS SUMMARY | 2024-09-16 09:42 | XMS_ITS | Encounter Summary ---
Author Organization [facility] Address [address] [place] [address] Care Team Providers Care Rope Tow Operator Name Role Phone Ghassan Burciaga MD Primary Care Provider Unavail able Pierre Arevalo MD Primary Care Provider Judy vailable Gerson Dawson MD Primary Care Provider Unavail able [facility], Pcp Primary Care Provider Unavailabl e Coleman Mccarthy MD Primary Care Provider Unavaila Ayo Demarco MD Primary Care Provider [phone] Annalee Jones MD Primary Care Provider Un available Kim Banegas Yolande DO Primary Care Pro vider Unavailable Anuj Priest DO Primary Care Provider Judy vailable [facility], Pcp Primary Care Provider Unavailabl e Encounter Details Date Type Department Care Team Description 06/25/2011 Pt. Non Urgent Medic al Question Medicine/Pediatrics - [address] [address] Ghassan Burciaga MD Social History Tobacco Use [...] on filedocumented in this encounter Care Teams Rope Tow Operator Relationship Specialty Start Date End Date Ghassan Burciaga MD PCP - General 07/24/00 05/06/13 Pierre Arevalo MD PCP - General Internal Medicine 05/07/13 4 Gerson Dawson MD PCP - General Internal Medicine 01/30/14 03/20/14 [facility], Pcp PCP - General Internal Medicine 03/21/14 05/06/14 Coleman Mccarthy MD PCP - General Internal Medicine 05/07/14 07/18/16 Ayo Carpio MD [address] [place] [address] PCP - General Internal Medicine 07/19/16 01/05/17 Annalee Jones MD [address] [place] [address] PCP - General Internal Medicine 01/06/17 12/02/18 Yolande Nicholas, [address] [address] PCP - General Internal Medicine 12/03/18 10/08/20 Anuj Priest, [address] [address] PCP - General Internal Medicine 10/09/20 06/16/21 [facility], Pcp PCP - General Internal Medicine 06/17/21 documented as of this encounter
--- OUTSIDE RECORDS SUMMARY | 2024-09-16 09:42 | XMS_ITS | Encounter Summary ---
Author Organization [facility] Address [address] [place] [address] Care Team Providers Care Country Printer Name Role Phone Yolande Nicholas DO Primary Care Pro vider Unavailable Anuj Priest DO Primary Care Provider Judy Gardner, Pcp Primary Care Provider Unavailabl e Encounter Details Date Type Department Care Team Description 10/08/2019 Home Health Certification Medical Records [address] [place] [address] Home, [facility] [address] [place] [address] Social History Tobacco Use Types Packs/Day Years [...] on filedocumented in this encounter Care Teams Country Printer Relationship Specialty Start Date End Date Yolande Nicholas DO PCP - General Internal Medicine 12/03/18 10/08/20 Anuj Priest DO PCP - General Internal Medicine 10/09/20 Molly Gardner, Pcp PCP - General Internal Medicine 06/17/21 documented as of this encounter
--- OUTSIDE RECORDS SUMMARY | 2024-09-16 09:42 | XMS_ITS | Encounter Summary ---
Author Organization [email or web address] [facility] Address [address] [place] [address] Care Team Providers Care Concierge Manager Name Role Phone Ghassan Burciaga MD Primary Care Provider Unavail able Pierre Arevalo MD Primary Care Provider Judy vailable Gerson Dawson MD Primary Care Provider Unavail able [facility], Pcp Primary Care Provider Unavailabl e Coleman Mccarthy MD Primary Care Provider Unavaila Ayo Demarco MD Primary Care Provider [phone] Annalee Jones MD Primary Care Provider Un available Pascula Nicholasabela DO Primary Care Pro vider Unavailable Anuj Priest DO Primary Care Provider Judy vailable [facility], Pcp Primary Care Provider Unavailabl e Encounter Details Date Type Department Care Team Description 10/28/2011 Network Solutions Architect Report Medical Records [address] [place] [address] Nhan Herbert MD Social History Tobacco Use [...] on filedocumented in this encounter Care Teams Concierge Manager Relationship Specialty Start Date End Date Ghassan Burciaga MD PCP - General 07/24/00 05/06/13 Pierre Arevalo MD PCP - General Internal Medicine 05/07/13 4 Gerson Dawson MD PCP - General Internal Medicine 01/30/14 03/20/14 [facility], Pcp PCP - General Internal Medicine 03/21/14 05/06/14 Coleman Mccarthy MD PCP - General Internal Medicine 05/07/14 07/18/16 Ayo Carpio MD [address] [place], [place] [id number] PCP - General Internal Medicine 07/19/16 01/05/17 Annalee Jones MD [address] [place], [place] [id number] PCP - General Internal Medicine 01/06/17 12/02/18 Yolande Nicholas DO [address] [place] [address] PCP - General Internal Medicine 12/03/18 10/08/20 Anuj Priest DO [address] [place] [address] PCP - General Internal Medicine 10/09/20 06/16/21 [facility], Pcp PCP - General Internal Medicine 06/17/21 documented as of this encounter
--- OUTSIDE RECORDS SUMMARY | 2024-09-16 09:42 | XMS_ITS | Encounter Summary ---
Author Organization [employer] [facility] Address [address] [place] [address] Care Team Providers Care Health Safety Specialist Name Role Phone Ghassan Burciaga MD Primary Care Provider Unavail able Pierre Arevalo MD Primary Care Provider Judy vailable Gerson Dawson MD Primary Care Provider Unavail able [facility], Pcp Primary Care Provider Unavailabl e Coleman Mccarthy MD Primary Care Provider Unavaila Ayo Demarco MD Primary Care Provider [phone] Annalee Jones MD Primary Care Provider Un available Pascual Nicholasabela DO Primary Care Pro vider Unavailable Anuj Priest DO Primary Care Provider Judy vailable [facility], Pcp Primary Care Provider Unavailabl e Encounter Details Date Type Department Care Team Description 08/26/2011 Instrumentation Specialist Report Medical Records [address] [place] [address] Anuj Easton Social History Tobacco Use Types [...] filedocumented in this encounter Care Teams Health Safety Specialist Relationship Specialty Start Date End Date Ghassan Burciaga MD PCP - General 07/24/00 05/06/13 Pierre Arevalo MD PCP - General Internal Medicine 05/07/13 4 Gerson Dawson MD PCP - General Internal Medicine 01/30/14 03/20/14 [facility], Pcp PCP - General Internal Medicine 03/21/14 05/06/14 Coleman Mccarthy MD PCP - General Internal Medicine 05/07/14 07/18/16 Ayo Carpio MD [address] [place], [place] [id number] PCP - General Internal Medicine 07/19/16 01/05/17 Annalee Jones MD [address] [place], [place] [id number] PCP - General Internal Medicine 01/06/17 12/02/18 Yolande Nicholas DO [address] [place] [address] PCP - General Internal Medicine 12/03/18 10/08/20 Anuj Priest DO [address] [place] [address] PCP - General Internal Medicine 10/09/20 06/16/21 [facility], Pcp PCP - General Internal Medicine 06/17/21 documented as of this encounter
--- OUTSIDE RECORDS SUMMARY | 2024-09-16 09:42 | XMS_ITS | Encounter Summary ---
Author Organization [facility] Address [address] [place] [address] Care Team Providers Care Cook Manager Name Role Phone Ghassan Burciaga MD Primary Care Provider Unavail able Pierre Arevalo MD Primary Care Provider Judy vailable Gerson Dawson MD Primary Care Provider Unavail able [facility], Pcp Primary Care Provider Unavailabl e Coleman Mccarthy MD Primary Care Provider Unavaila Ayo Demarco MD Primary Care Provider [phone] Annalee Jones MD Primary Care Provider Un available Pascual Nicholasabela DO Primary Care Pro vider Unavailable Anuj Priest DO Primary Care Provider Judy vailable [facility], Pcp Primary Care Provider Unavailabl e Encounter Details Date Type Department Care Team Description 09/27/2012 Release of Information Medical Records [address] [place] [address] Abstract, Provider Social History Tobacco Use Types [...] filedocumented in this encounter Care Teams Cook Manager Relationship Specialty Start Date End Date Ghassan Burciaga MD PCP - General 07/24/00 05/06/13 Pierre Arevalo MD PCP - General Internal Medicine 05/07/13 4 Gerson Dawson MD PCP - General Internal Medicine 01/30/14 03/20/14 [facility], Pcp PCP - General Internal Medicine 03/21/14 05/06/14 Coleman Mccarthy MD PCP - General Internal Medicine 05/07/14 07/18/16 Ayo Carpio MD [address] [place], [place] [id number] PCP - General Internal Medicine 07/19/16 01/05/17 Annalee Jones MD [address] [place], [place] [id number] PCP - General Internal Medicine 01/06/17 12/02/18 Yolande Nicholas DO [address] [place] [address] PCP - General Internal Medicine 12/03/18 10/08/20 Anuj Priest DO [address] [place] [address] PCP - General Internal Medicine 10/09/20 06/16/21 [facility], Pcp PCP - General Internal Medicine 06/17/21 documented as of this encounter
--- OUTSIDE RECORDS SUMMARY | 2024-09-16 09:42 | XMS_ITS | Encounter Summary ---
Author [facility] Address [address] [place] [address] Care Team Providers Care Health Education Teacher Name Role Phone Yolande Nicholas DO Primary Care Pro vider Unavailable Anuj Priest DO Primary Care Provider Judy Gardner, Pcp Primary Care Provider Unavailabl e Encounter Details Date Type Department Care Team Description 10/07/2019 Pt. Non Urgent Medic al Question Adult Medicine [address] [address] Yolande Nicholas DO Social History Tobacco Use [...] filedocumented in this encounter Care Teams Health Education Teacher Relationship Specialty Start Date End Date Yolande Nicholas DO PCP - General Internal Medicine 12/03/18 10/08/20 Anuj Priest DO PCP - General Internal Medicine 10/09/20 Molly Gardner, Pcp PCP - General Internal Medicine 06/17/21 documented as of this encounter
--- OUTSIDE RECORDS SUMMARY | 2024-09-16 09:42 | XMS_ITS | Encounter Summary ---
Author Organization [facility] Address [address] [place] [address] Care Team Providers Care Service Unit Operator Oil Well Name Role Phone Ghassan Burciaga MD Primary Care Provider Unavail able Pierre Arevalo MD Primary Care Provider Judy vailable Gerson Dawson MD Primary Care Provider Unavail able Counts Include [facility], Pcp Primary Care Provider Unavailabl e Coleman Mccarthy MD Primary Care Provider Unavaila Ayo Demarco MD Primary Care Provider [phone] Annalee Jones MD Primary Care Provider Un available Kim Banegas Yolande DO Primary Care Pro vider Unavailable Anuj Priest DO Primary Care Provider Judy vailable Counts Include [facility], Pcp Primary Care Provider Unavailabl e Encounter Details Date Type Department Care Team Description 06/25/2011 Pt. Non Urgent Medic al Question Medicine/Pediatrics - [address] [phone] Ghassan Burciaga MD Social History Tobacco Use [...] filedocumented in this encounter Care Teams Service Unit Operator Oil Well Relationship Specialty Start Date End Date Ghassan Burciaga MD PCP - General 07/24/00 05/06/13 Pierre Arevalo MD PCP - General Internal Medicine 05/07/13 4 Gerson Dawson MD PCP - General Internal Medicine 01/30/14 03/20/14 [facility], Pcp PCP - General Internal Medicine 03/21/14 05/06/14 Coleman Mccarthy MD PCP - General Internal Medicine 05/07/14 07/18/16 Ayo Carpio MD [address] [place] [address] PCP - General Internal Medicine 07/19/16 01/05/17 Annalee Jones MD [address] [place] [address] PCP - General Internal Medicine 01/06/17 12/02/18 Yolande Nicholas, [address] [address] PCP - General Internal Medicine 12/03/18 10/08/20 Anuj Priest, [address] [address] PCP - General Internal Medicine 10/09/20 06/16/21 Counts Include [facility], Pcp PCP - General Internal Medicine 06/17/21 documented as of this encounter
--- OUTSIDE RECORDS SUMMARY | 2024-09-16 09:42 | XMS_ITS | Encounter Summary ---
Author Organization [facility] Address [address] [place] [address] Care Team Providers Care Academic Coach Name Role Phone Yolande Nicholas DO Primary Care Pro vider Unavailable Anuj Priest DO Primary Care Provider Judy Gardner, Pcp Primary Care Provider Unavailabl e Encounter Details Date Type Department Care Team Description 10/23/2019 Release of Information Medical Records [address] [place] [address] Abstract, Provider Social History Tobacco Use Types [...] filedocumented in this encounter Care Teams Academic Coach Relationship Specialty Start Date End Date Yolande Nicholas DO PCP - General Internal Medicine 12/03/18 10/08/20 Anuj Priest DO PCP - General Internal Medicine 10/09/20 2 Jj, Pcp PCP - General Internal Medicine 06/17/21 documented as of this encounter
--- OUTSIDE RECORDS SUMMARY | 2024-09-16 09:43 | XMS_ITS | Encounter Summary ---
Author Organization [facility] Address [address] [place] [address] Care Team Providers Care Research Nutritionist Name Role Phone Yolande Nicholas DO Primary Care Pro vider Unavailable Anuj Priest DO Primary Care Provider Judy álvarez [facility], Pcp Primary Care Provider Unavailabl e Encounter Details Date Type Department Care Team Description 09/07/2020 Airborne Operations Superintendent Report Medical Records [address] [place] [address] Dhruv Garcia MD Social History Tobacco Use [...] filedocumented in this encounter Care Teams Research Nutritionist Relationship Specialty Start Date End Date Yolande Nicholas DO PCP - General Internal Medicine 12/03/18 10/08/20 Anuj Priest DO PCP - General Internal Medicine 10/09/20 Jj, Pcp PCP - General Internal Medicine 06/17/21 documented as of this encounter
--- OUTSIDE RECORDS SUMMARY | 2024-09-16 09:43 | XMS_ITS | Encounter Summary ---
Author Organization [employer] Address [address] [facility] 7t [place] [address] Care Team Providers Care Human Insights Lead Ads Marketing Name Role Phone Sesar Pereyra MD Primary Care Provider [phone] Reason for Visit * Reason Onset Date Comments Med Refill 04/11/2024 Encounter Details Date Type Department Care Team (Late st Contact Info) Description 04/11/2024 Refill [facility] MEDICINE [address] [place] [address] Natasha Jiang MD [address] [place] [address] Closed nondisplaced fracture of acromial end of [...] as of this encounter Care Teams Human Insights Lead Ads Marketing Relationship Specialty Start Date End Date Sesar Pereyra MD [address] [place] [address] PCP - General Internal Medicine [facility] documented as of this encounter
--- OUTSIDE RECORDS SUMMARY | 2024-09-16 09:43 | XMS_ITS | Encounter Summary ---
Author Organization [facility] Address [address] [place] [address] Care Team Providers Care Welt Rander Name Role Phone Yolande Nicholas DO Primary Care Pro vider Unavailable Anuj Priest DO Primary Care Provider [facility], Pcp Primary Care Provider Unavailabl e Reason for Visit * Reason Onset Date Comments Mychart Rx Refill 06/27/2020 Encounter Details Date Type Department Care Team Description 06/27/2020 Refill Adult Medicine [address] [address] Yolande Nicholas DO Mychart Rx Refill Social [...] pharmacy whats the hold up Preferred pharmacy: [facility] [address] Medication renewals requested in this message routed separately: atorvastatin (LIPITOR) 80 MG tablet [Yolande Gomez DO] metoprolol (LOPRESSOR) 25 MG tablet [Yolande Gomez DO] documented in this encounter Plan of Treatment Not on file documented as of this encounter Visit Diagnoses Not on filedocumented in this encounter Care Teams Welt Rander Relationship Specialty Start Date End Date Yolande Nicholas DO PCP - General Internal Medicine 12/03/18 10/08/20 Anuj Priest DO PCP - General Internal Medicine 10/09/[address] [place] [address], Pcp PCP - General Internal Medicine 06/17/21 documented as of this encounter
--- OUTSIDE RECORDS SUMMARY | 2024-09-16 09:43 | XMS_ITS | Encounter Summary ---
Author Organization [employer] Address [address] [facility] 7t [place] [address] Care Team Providers Care Stress Analyst Name Role Phone Sesar Pereyra MD Primary Care Provider [phone]- [phone] Encounter Details Date Type Department Care Team (Late st Contact Info) Description 04/02/2024 Orders Only [facility] [address] [place] [address] Provider, MD Jazmyn Social History Tobacco Use [...] documented as of this encounter Care Teams Stress Analyst Relationship Specialty Start Date End Date Sesar Pereyra MD [address] [place] [address] PCP - General Internal Medicine 03/01/21 [facility] 03/22/24 documented as of this encounter
--- OUTSIDE RECORDS SUMMARY | 2024-09-16 09:43 | XMS_ITS | Encounter Summary ---
Author Organization [employer] Address [address] [facility] 7t [place] [address] Care Team Providers Care Drafting Layout Worker Name Role Phone Sesar Pereyra MD Primary Care Provider [phone]- [phone] Reason for Visit * Reason Onset Date Comments Medication Question 06/21/2024 Encounter Details Date Type Department Care Team ([facility] st Contact Info) Description 06/21/2024 Telephone [facility] MEDICINE [address] [place] [address] Sesar Pereyra MD [address] [place], [place] [phone] Medication Question Social History Tobacco Use Types [...] to Discontinue the medication. Contact Conrad at [phone] Ext [phone] The Voicemail is private so you are able to Leave a message in there. documented in this encounter Plan of Treatment Not on file documented as of this encounter Visit Diagnoses Not on filedocumented in this encounter Additional Health Concerns Assessment Noted Time PHQ-9 Depression Total Score: 16 024 10:59 AM EDT documented as of this encounter Care Teams Drafting Layout Worker Relationship Specialty Start Date End Date Sesar Pereyra MD [address] [place] [address] PCP - General Internal Medicine [facility]01[facility] documented as of this encounter
--- OUTSIDE RECORDS SUMMARY | 2024-09-16 09:43 | XMS_ITS | Encounter Summary ---
Author [facility] Address [address] [place] [address] Care Team Providers Care Statistical Clerk Advertising Name Role Phone Yolande Nicholas DO Primary Care Pro vider Unavailable Anuj Priest DO Primary Care Provider Judy Gardner, Pcp Primary Care Provider Unavailabl e Encounter Details Date Type Department Care Team Description 08/29/2019 SNF discharge summary Medical Records [address] [place] [address] Abstract, Provider Social History Tobacco Use Types [...] on filedocumented in this encounter Care Teams Statistical Clerk Advertising Relationship Specialty Start Date End Date Yolande Nicholas DO PCP - General Internal Medicine 12/03/18 10/08/20 Anuj Priest DO PCP - General Internal Medicine 10/09/20 2 Jj, Pcp PCP - General Internal Medicine 06/17/21 documented as of this encounter
--- OUTSIDE RECORDS SUMMARY | 2024-09-16 09:43 | XMS_ITS | Encounter Summary ---
Author Organization [facility] [employer] [facility] Address [address] [place] [address] Care Team Providers Care Auto Servicer Name Role Phone Coleman Mccarthy MD Primary Care Provider Unavaila ble Ayo Carpio MD Primary Care Provider [phone] Annalee Jones MD Primary Care Provider Un available Yolande Nicholas DO Primary Care Pro vider Unavailable Anuj Priest DO Primary Care Provider [facility], Pcp Primary Care Provider Unavailabl e Encounter Details Date Type Department Care Team Description 07/30/2014 SWAGING MACHINE ADJUSTER/[place] Report Medical Records [address] [place] [address] Abstract, Provider Social History Tobacco Use Types [...] filedocumented in this encounter Care Teams Auto Servicer Relationship Specialty Start Date End Date Coleman Mccarthy MD PCP - General Internal Medicine 05/07/14 07/18/16 Ayo Carpio MD [address] [place] [id number] PCP - General Internal Medicine 07/19/16 01/05/17 Annalee Jones MD [address] [place] [address] PCP - General Internal Medicine 01/06/17 12/02/18 Yolande Nicholas, [address] [place] [address] PCP - General Internal Medicine 12/03/18 10/08/20 Anuj Priest DO [address] [place] [address] PCP - General Internal Medicine 10/09/20 06/16/21 [facility], Pcp [address] [place] [address] PCP - General Internal Medicine 06/17/21 documented as of this encounter
--- OUTSIDE RECORDS SUMMARY | 2024-09-16 09:43 | XMS_ITS | Encounter Summary ---
Author Organization [employer] Address [address] [facility] 7t [place] [address] Care Team Providers Care Spinning Frame Fixer Name Role Phone Sesar Pereyra MD Primary Care Provider [phone] Encounter Details Date Type Department Care Team (Late st Contact Info) Description 06/24/2024 Orders Only [facility] MEDICINE [address] [place] [address] Sesar Pereyra MD [address] [place] [address] Paroxysmal atrial fibrillation (CMS/HCC) (Primary Dx) Social [...] documented as of this encounter Care Teams Spinning Frame Fixer Relationship Specialty Start Date End Date Sesar Pereyra MD [address] [place] [address] PCP - General Internal Medicine 03/01/21 [facility] 03/22/24 documented as of this encounter
--- OUTSIDE RECORDS SUMMARY | 2024-09-16 09:43 | XMS_ITS | Encounter Summary ---
Author Organization [facility] Address [address] [place] [address] Care Team Providers Care Type Cutter Name Role Phone Ghassan Burciaga MD Primary Care Provider Unavail able Pierre Arevalo MD Primary Care Provider Judy vailable Gerson Dawson MD Primary Care Provider Unavail able [facility], Pcp Primary Care Provider Unavailabl e Coleman Mccarthy MD Primary Care Provider Unavaila Ayo Demarco MD Primary Care Provider [phone] Annalee Jones MD Primary Care Provider Un available Pascual Nicholasabela DO Primary Care Pro vider Unavailable Anuj Priest DO Primary Care Provider Judy vailable [facility], Pcp Primary Care Provider Unavailabl e Encounter Details Date Type Department Care Team Description 01/30/2009 Hospital Medical Records [address] [place] [address] Fernie Higginbotham MD Social History Tobacco Use [...] on filedocumented in this encounter Care Teams Type Cutter Relationship Specialty Start Date End Date Ghassan Burciaga MD PCP - General 07/24/00 05/06/13 Pierre Arevalo MD PCP - General Internal Medicine 05/07/13 4 Gerson Dawson MD PCP - General Internal Medicine 01/30/14 03/20/14 [facility], Pcp PCP - General Internal Medicine 03/21/14 05/06/14 Coleman Mccarthy MD PCP - General Internal Medicine 05/07/14 07/18/16 Ayo Carpio MD [address] [place], [place] [address] PCP - General Internal Medicine 07/19/16 01/05/17 Annalee Jones MD [address] [place], [place] [address] PCP - General Internal Medicine 01/06/17 12/02/18 Yolande Nicholas DO [address] [place] [address] PCP - General Internal Medicine 12/03/18 10/08/20 Anuj Priest DO [address] [place] [address] PCP - General Internal Medicine 10/09/20 06/16/21 [facility], Pcp PCP - General Internal Medicine 06/17/21 documented as of this encounter
--- OUTSIDE RECORDS SUMMARY | 2024-09-16 09:43 | XMS_ITS | Encounter Summary ---
Author [facility] Address [address] [place] [address] Care Team Providers Care Environmental Communications Specialist Name Role Phone Yolande Nicholas DO Primary Care Pro vider Unavailable Anuj Priest DO Primary Care Provider Judy Gardner, Pcp Primary Care Provider Unavailabl e Encounter Details Date Type Department Care Team Description 2020 Hospital Medical Records [address] [place] [address] Abstract, Provider Social History Tobacco Use Types [...] filedocumented in this encounter Care Teams Environmental Communications Specialist Relationship Specialty Start Date End Date Yolande Nicholas DO PCP - General Internal Medicine 12/03/18 10/08/20 Anuj Priest DO PCP - General Internal Medicine 10/09/20 2 Jj, Pcp PCP - General Internal Medicine 06/17/21 documented as of this encounter
--- OUTSIDE RECORDS SUMMARY | 2024-09-16 09:43 | XMS_ITS | Encounter Summary ---
Author Organization [employer] Address [address] [facility] 7t [place] [address] Care Team Providers Care Die Maintenance Name Role Phone Sesar Pereyra MD Primary Care Provider [phone] Encounter Details Date Type Department Care Team ([facility] st Contact Info) Description 04/29/2024 Orders Only [facility] [address] [place], [place] [phone] Sesar Pereyra MD [address] [place] [address] Closed nondisplaced fracture of acromial end of [...] as of this encounter Care Teams Die Maintenance Relationship Specialty Start Date End Date Sesar Pereyra MD [address] [place] [address] PCP - General Internal Medicine 03/01/21 [facility] 03/22/24 documented as of this encounter
--- OUTSIDE RECORDS SUMMARY | 2024-09-16 09:43 | XMS_ITS | Encounter Summary ---
Author Organization [employer] [facility] Address [address] [place] [address] Care Team Providers Care Molding Machine Operator Name Role Phone Coleman Mccarthy MD Primary Care Provider Unavaila ble Ayo Carpio MD Primary Care Provider [phone] Annalee Jones MD Primary Care Provider Un available Yolande Nicholas DO Primary Care Pro vider Unavailable Anuj Priest DO Primary Care Provider [facility], Pcp Primary Care Provider Unavailabl e Encounter Details Date Type Department Care Team Description 05/19/2015 Meat Department Manager Report Medical Records [address] [place] [address] Anuj Easton Social History Tobacco Use Types [...] filedocumented in this encounter Care Teams Molding Machine Operator Relationship Specialty Start Date End Date Coleman Mccarthy MD PCP - General Internal Medicine 05/07/14 07/18/16 Ayo Carpio MD [address] [place] [phone] PCP - General Internal Medicine 07/19/16 01/05/17 Annalee Jones MD [address] [place] [address] PCP - General Internal Medicine 01/06/17 12/02/18 Yolande Nicholas, [address] [place] [address] PCP - General Internal Medicine 12/03/18 10/08/20 Anuj Priest DO [address] [place] [address] PCP - General Internal Medicine 10/09/20 06/16/21 [facility], Pcp [address] [place] [address] PCP - General Internal Medicine 06/17/21 documented as of this encounter
--- OUTSIDE RECORDS SUMMARY | 2024-09-16 09:43 | XMS_ITS | Encounter Summary ---
Author Organization [facility] Address [address] [place] [address] Care Team Providers Care Oven Technician Name Role Phone Yolande Nicholas DO Primary Care Pro vider Unavailable Anuj Priest DO Primary Care Provider [facility], Pcp Primary Care Provider Unavailabl e Reason for Visit * Reason Comments E-prescribe Rx Request Encounter Details Date Type Department Care Team Description 01/24/2020 Refill Adult Medicine [address] [address] Alana Stinson MD [address] [place] [phone] E-prescribe Rx Request Social History Tobacco [...] - MEDICARE / Plan: MEDICARE FFS $5 TERRE HAUTE [id number] / Product Type: MEDICARE [id number] documented in this encounter Plan of Treatment Not on file documented as of this encounter Visit Diagnoses Not on filedocumented in this encounter Care Teams Oven Technician Relationship Specialty Start Date End Date Yolande Nicholas DO PCP - General Internal Medicine 12/03/18 10/08/20 Anuj Priest DO PCP - General Internal Medicine 10/09/20 2 [facility], Pcp PCP - General Internal Medicine 06/17/21 documented as of this encounter
--- OUTSIDE RECORDS SUMMARY | 2024-09-16 09:43 | XMS_ITS | Encounter Summary ---
Author Organization [facility] Address [address] [place] [address] Care Team Providers Care Dishwasher Preparer Name Role Phone Yolande Nicholas DO Primary Care Pro vider Unavailable Anuj Priest DO Primary Care Provider [facility], Pcp Primary Care Provider Unavailabl e Reason for Visit * Reason Onset Date Comments Provider Call Back 01/29/2020 FYI Encounter Details Date Type Department Care Team Description 01/29/[address] [address] Yolande Nicholas DO Provider Call Back (FYI) [...] YES Reason for call back: transporting [facility]. Going to ER and hoping tohave him admitted today. Has consultation with Dr Ben Rodriguez, endovascular surgeon on 02-06-20 [place] Caller offered to speak with the nurse for assistance: YES Response: Patient offered to speak with nurse for assistance and patient agreed. Message forwarded to nurse. documented in this encounter Plan of Treatment Not on file documented as of this encounter Visit Diagnoses Not on filedocumented in this encounter Care Teams Dishwasher Preparer Relationship Specialty Start Date End Date Yolande Nicholas DO PCP - General Internal Medicine 12/03/18 10/08/20 Anuj Priest DO PCP - General Internal Medicine 10/09/[address] [place] [address], Pcp PCP - General Internal Medicine 06/17/21 documented as of this encounter
--- OUTSIDE RECORDS SUMMARY | 2024-09-16 09:43 | XMS_ITS | Encounter Summary ---
Author [facility] Address [address] [place] [address] Care Team Providers Care Service Superintendent Name Role Phone Yolande Nicholas DO Primary Care Pro vider Unavailable Anuj Priest DO Primary Care Provider Judy Gardner, Pcp Primary Care Provider Unavailabl e Encounter Details Date Type Department Care Team Description 11/28/2019 Assistant Tennis Professional Report Medical Records [address] [place] [address] Cedrick Siddiqui Social History Tobacco Use Types [...] filedocumented in this encounter Care Teams Service Superintendent Relationship Specialty Start Date End Date Yolande Nicholas DO PCP - General Internal Medicine 12/03/18 10/08/20 Anuj Priest DO PCP - General Internal Medicine 10/09/20 2 Jj, Pcp PCP - General Internal Medicine 06/17/21 documented as of this encounter
--- OUTSIDE RECORDS SUMMARY | 2024-09-16 09:43 | XMS_ITS | Encounter Summary ---
Author Organization [facility] Address [address] [place] [address] Care Team Providers Care Yarn Cleaner Name Role Phone Ayo Carpio MD Primary Care Provider [phone] Annalee Jones MD Primary Care Provider Un available Yolande Nicholas DO Primary Care Pro vider Unavailable Anuj Priest DO Primary Care Provider Judy [facility], Pcp Primary Care Provider Unavailabl e Encounter Details Date Type Department Care Team Description 10/19/2016 Orders Only Adult Medicine [address] [phone] Ayo Carpio MD [address] [place] [address] [phone] Lung nodule (Primary Dx) Social History Tobacco [...] nodule documented in this encounter Care Teams Yarn Cleaner Relationship Specialty Start Date End Date Ayo Carpio MD [address] [place] [address] [phone] PCP - General Internal Medicine 07/19/16 01/05/17 Annalee Jones MD [address] [place] [address] PCP - General Internal Medicine 01/06/17 12/02/18 Yolande Nicholas, [address] [place] [address] PCP - General Internal Medicine 12/03/18 10/08/20 Anuj Priest DO [address] [place] [address] PCP - General Internal Medicine 10/09/20 06/16/21 [facility], Pcp [address] [place] [address] PCP - General Internal Medicine 06/17/21 documented as of this encounter
--- OUTSIDE RECORDS SUMMARY | 2024-09-16 09:43 | XMS_ITS | Encounter Summary ---
Author Organization [employer] [facility] Address [address] [place] [address] Care Team Providers Care Histological Illustrator Name Role Phone Ghassan Burciaga MD Primary Care Provider Unavail able Pierre Arevalo MD Primary Care Provider Judy vailable Gerson Dawson MD Primary Care Provider Unavail able [facility], Pcp Primary Care Provider Unavailabl e Coleman Mccarthy MD Primary Care Provider Unavaila Ayo Demarco MD Primary Care Provider [phone] Annalee Jones MD Primary Care Provider Un available Pascual Nicholasabela DO Primary Care Pro vider Unavailable Anuj Priest DO Primary Care Provider Judy vailable [facility], Pcp Primary Care Provider Unavailabl e Encounter Details Date Type Department Care Team Description 01/19/2007 Hospital Medical Records [address] [place] [address] Cathie Hopkins Social History Tobacco Use Types [...] on filedocumented in this encounter Care Teams Histological Illustrator Relationship Specialty Start Date End Date Ghassan Burciaga MD PCP - General 07/24/00 05/06/13 Pierre Arevalo MD PCP - General Internal Medicine 05/07/13 4 Gerson Dawson MD PCP - General Internal Medicine 01/30/14 03/20/14 [facility], Pcp PCP - General Internal Medicine 03/21/14 05/06/14 Coleman Mccarthy MD PCP - General Internal Medicine 05/07/14 07/18/16 Ayo Carpio MD [address] [place], [place] [phone] PCP - General Internal Medicine 07/19/16 01/05/17 Annalee Jones MD [address] [place], [place] [phone] PCP - General Internal Medicine 01/06/17 12/02/18 Yolande Nicholas DO [address] [place] [address] PCP - General Internal Medicine 12/03/18 10/08/20 Anuj Priest DO [address] [place] [address] PCP - General Internal Medicine 10/09/20 06/16/21 [facility], Pcp PCP - General Internal Medicine 06/17/21 documented as of this encounter
--- OUTSIDE RECORDS SUMMARY | 2024-09-16 09:43 | XMS_ITS | Encounter Summary ---
Author Organization [employer] [facility] Address [address] [place] [address] Care Team Providers Care Marine Geologist Name Role Phone Ayo Carpio MD Primary Care Provider [phone] Annalee Jones MD Primary Care Provider Un available Yolande Nicholas DO Primary Care Pro vider Unavailable Anuj Priest DO Primary Care Provider [facility], Pcp Primary Care Provider Unavailabl e Reason for Visit * Reason Onset Date Comments hospital follow up 10/14/2016 Encounter Details Date Type Department Care Team Description 10/14/2016 Telephone Adult Medicine [address] [phone] Ayo Carpio MD [address] [place] [address] [phone] hospital follow up Social History Tobacco Use [...] Pt to see 10/21 at 1:[address] [facility] f/u . * Telephone Encounter - Bertha Ernandez - 10/17/2016 1:41 PM EDT Pt returning call, pt has a bad phone, please call Patient today at this number [phone] * Telephone Encounter - Minerva Kan R.N. [...] appointment needed Hospital patient was treated at: [facility] Was this only an ER visit or [...] filedocumented in this encounter Care Teams Marine Geologist Relationship Specialty Start Date End Date Ayo Carpio MD [address] [place] [address] PCP - General Internal Medicine 07/19/16 01/05/17 Annalee Jones MD [address] [place] [address] 89[address] PCP - General Internal Medicine 01/06/17 12/02/18 Yolande Nicholas DO [address] [place] [address] 174[address] PCP - General Internal Medicine 12/03/18 10/08/20 Anuj Priest DO [address] [place] [address] 455[address] PCP - General Internal Medicine 10/09/20 06/16/21 [facility], Jose G [address] [place] [address] PCP - General Internal Medicine 06/17/21 documented as of this encounter
--- OUTSIDE RECORDS SUMMARY | 2024-09-16 09:43 | XMS_ITS | Encounter Summary ---
Author Organization [facility] Address [address] [place] [address] Care Team Providers Care Rn School Name Role Phone Yolande Nicholas DO Primary Care Pro vider Unavailable Anuj Priest DO Primary Care Provider [facility], Pcp Primary Care Provider Unavailabl e Reason for Visit * Reason Onset Date Comments VNA Call 12/28/2019 Encounter Details Date Type Department Care Team Description 12/28/2019 Telephone Adult Urgent Care - [address] [address] Yolande Nicholas DO VNA Call Social History [...] VNA CALL Which [facility]NA office is calling? [facility] Full name of caller: Bev The [...] filedocumented in this encounter Care Teams Rn School Relationship Specialty Start Date End Date Yolande Nicholas DO PCP - General Internal Medicine 12/03/18 10/08/20 Anuj Priest DO PCP - General Internal Medicine 10/09/[address] [place] [address], Pcp PCP - General Internal Medicine 06/17/21 documented as of this encounter
--- OUTSIDE RECORDS SUMMARY | 2024-09-16 09:43 | XMS_ITS | Encounter Summary ---
Author Organization [employer] [facility] Address [address] [place] [address] Care Team Providers Care Bench Assembler Operator Name Role Phone Ghassan Burciaga MD Primary Care Provider Unavail able Pierre Arevalo MD Primary Care Provider Judy vailable Gerson Dawson MD Primary Care Provider Unavail able [facility], Pcp Primary Care Provider Unavailabl e Coleman Mccarthy MD Primary Care Provider Unavaila Ayo Demarco MD Primary Care Provider [phone] Annalee Jones MD Primary Care Provider Un available Pascual Nicholasabela DO Primary Care Pro vider Unavailable Anuj Priest DO Primary Care Provider Judy [facility], Pcp Primary Care Provider Unavailabl e Encounter Details Date Type Department Care Team Description 01/27/2009 Hospital Medical Records [address] [place] [address] Bacilio Ward MD Social History Tobacco Use [...] filedocumented in this encounter Care Teams Bench Assembler Operator Relationship Specialty Start Date End Date Ghassan Burciaga MD PCP - General 07/24/00 05/06/13 Pierre Arevalo MD PCP - General Internal Medicine 05/07/13 4 Gerson Dawson MD PCP - General Internal Medicine 01/30/14 03/20/14 [facility], Pcp PCP - General Internal Medicine 03/21/14 05/06/14 Coleman Mccarthy MD PCP - General Internal Medicine 05/07/14 07/18/16 Ayo Carpio MD [address] [place], [place] [phone] PCP - General Internal Medicine 07/19/16 01/05/17 Annalee Jones MD [address] [place], [place] [phone] PCP - General Internal Medicine 01/06/17 12/02/18 Yolande Nicholas, DO [address] [place] [address] PCP - General Internal Medicine 12/03/18 10/08/20 Anuj Priest, [address] [place] [address] PCP - General Internal Medicine 10/09/20 06/16/21 [facility], Pcp PCP - General Internal Medicine 06/17/21 documented as of this encounter
--- OUTSIDE RECORDS SUMMARY | 2024-09-16 09:43 | XMS_ITS | Encounter Summary ---
Author Organization [facility] Address [address] [place] [address] Care Team Providers Care Senior Technical Support Analyst Name Role Phone Pierre Arevalo MD Primary Care Provider Judy vailable Gerson Dawson MD Primary Care Provider Unavail able [facility], Pcp Primary Care Provider Unavailabl e Coleman Mccarthy MD Primary Care Provider Unavaila Ayo Demarco MD Primary Care Provider [phone] Annalee Jones MD Primary Care Provider Un available Yolande Nicholas DO Primary Care Pro vider Unavailable Anuj Priest DO Primary Care Provider [facility], Pcp Primary Care Provider Unavailabl e Reason for Visit * Reason Onset Date Comments TEST RESULTS 07/17/2013 Encounter Details Date Type Department Care Team Description 07/17/2013 Telephone Physiatry - [address] [address] Luda Jenkins PA-C TEST RESULTS Social History [...] myelopathy documented in this encounter Care Teams Senior Technical Support Analyst Relationship Specialty Start Date End Date Pierre Arevalo MD PCP - General Internal Medicine 05/07/13 4 Gerson Dawson MD PCP - General Internal Medicine 01/30/14 03/20/14 [facility], Pcp PCP - General Internal Medicine 03/21/14 05/06/14 Coleman Mccarthy MD PCP - General Internal Medicine 05/07/14 07/18/16 Ayo Carpio MD [address] [place] [address] PCP - General Internal Medicine 07/19/16 01/05/17 Annalee Jones MD [address] [place] [address] PCP - General Internal Medicine 01/06/17 12/02/18 Yolande Nicholas, DO [address] [place] [address] PCP - General Internal Medicine 12/03/18 10/08/20 Anuj Priest, DO [address] [place] [address] PCP - General Internal Medicine 10/09/20 06/16/21 [facility], Pcp PCP - General Internal Medicine 06/17/21 documented as of this encounter
--- OUTSIDE RECORDS SUMMARY | 2024-09-16 09:43 | XMS_ITS | Encounter Summary ---
Author [facility] Address [address] [place] [address] Care Team Providers Care Almond [place]er Name Role Phone Ghassan Burciaga MD Primary Care Provider Unavail able Pierre Arevalo MD Primary Care Provider Judy vailable Gerson Dawson MD Primary Care Provider Unavail able [facility], Pcp Primary Care Provider Unavailabl e Coleman Mccarthy MD Primary Care Provider Unavaila Ayo Demarco MD Primary Care Provider [phone] Annalee Jones MD Primary Care Provider Un available Pascual Nicholasabela DO Primary Care Pro vider Unavailable Anuj Priest DO Primary Care Provider Judy vailable [facility], Pcp Primary Care Provider Unavailabl e Encounter Details Date Type Department Care Team Description 04/30/2007 Hospital Medical Records [address] [place] [address] Anuj Easton Jr. [facility] [address] [place], [place] [phone] Social History Tobacco Use Types Packs/Day Years [...] on filedocumented in this encounter Care Teams Almond [place]er Relationship Specialty Start Date End Date Ghassan Burciaga MD PCP - General 07/24/00 05/06/13 Pierre Arevalo MD PCP - General Internal Medicine 05/07/13 4 Gerson Dawson MD PCP - General Internal Medicine 01/30/14 03/20/14 [facility], Pcp PCP - General Internal Medicine 03/21/14 05/06/14 Coleman Mccarthy MD PCP - General Internal Medicine 05/07/14 07/18/16 Ayo Carpio MD [address] [place] [address] PCP - General Internal Medicine 07/19/16 01/05/17 Annalee Jones MD [address] [place] [address] PCP - General Internal Medicine 01/06/17 12/02/18 Yolande Nicholas, DO [address] [place] [address] PCP - General Internal Medicine 12/03/18 10/08/20 Anuj Priest, DO [address] [place] [address] PCP - General Internal Medicine 10/09/20 06/16/21 [facility], Pcp PCP - General Internal Medicine 06/17/21 documented as of this encounter
--- OUTSIDE RECORDS SUMMARY | 2024-09-16 09:43 | XMS_ITS | Encounter Summary ---
Author Organization [employer] Address [address] [facility] 7t [place] [address] Care Team Providers Care Direct Sales Consultant Name Role Phone Sesar Pereyra MD Primary Care Provider [phone] Encounter Details Date Type Department Care Team ([facility] st Contact Info) Description 04/01/2024 Orders Only [facility] CHC MED & PEDS [address] [place], [place] [phone] Sesar Pereyra MD [address] [place] [address] Essential hypertension (Primary Dx) Social History Tobacco [...] documented as of this encounter Care Teams Direct Sales Consultant Relationship Specialty Start Date End Date Sesar Pereyra MD [address] [place] [address] PCP - General Internal Medicine 03/01/21 [facility] 03/22/24 documented as of this encounter
--- OUTSIDE RECORDS SUMMARY | 2024-09-16 09:43 | XMS_ITS | Encounter Summary ---
Author Organization [facility] Address [address] [place] [address] Care Team Providers Care Investigator Vice Name Role Phone Yolande Nicholas DO Primary Care Pro vider Unavailable Anuj Priest DO Primary Care Provider [facility], Pcp Primary Care Provider Unavailabl e Reason for Visit * Reason Comments E-prescribe Rx Request Encounter Details Date Type Department Care Team Description 01/01/2020 Refill Adult Medicine [address] [address] Alana Stinson MD [address] [place] [phone] E-prescribe Rx Request Social History Tobacco [...] on filedocumented in this encounter Care Teams Investigator Vice Relationship Specialty Start Date End Date Yolande Nicholas DO PCP - General Internal Medicine 12/03/18 10/08/20 Anuj Priest DO PCP - General Internal Medicine 10/09/20 2 [facility], Pcp PCP - General Internal Medicine 06/17/21 documented as of this encounter
--- OUTSIDE RECORDS SUMMARY | 2024-09-16 09:43 | XMS_ITS | Encounter Summary ---
Author Organization [facility] Address [address] [place] [address] Care Team Providers Care Wharf Tally Clerk Name Role Phone Yolande Nicholas DO Primary Care Pro vider Unavailable Anuj Priest DO Primary Care Provider [facility], Pcp Primary Care Provider Unavailabl e Encounter Details Date Type Department Care Team Description 06/26/2020 Pt. Non Urgent Medic al Question Adult Medicine [address] [address] Yolande Nicholas DO Social History Tobacco Use [...] Sent: 06/26/2020 8:37 AM EST Subject: referal [facility] 0ccupational therapy Lymphadema diagnosis for a referal [id number] Alex Nettles 1945 documented in this encounter Plan of Treatment Not on file documented as of this encounter Visit Diagnoses Not on filedocumented in this encounter Care Teams Wharf Tally Clerk Relationship Specialty Start Date End Date Yolande Nicholas DO PCP - General Internal Medicine 12/03/18 10/08/20 Anuj Priest DO PCP - General Internal Medicine 10/09/20 2 [facility], Pcp PCP - General Internal Medicine 06/17/21 documented as of this encounter
--- OUTSIDE RECORDS SUMMARY | 2024-09-16 09:43 | XMS_ITS | Encounter Summary ---
Author [facility] Address [address] [place] [address] Care Team Providers Care Boxing Instructor Name Role Phone Pierre Arevalo MD Primary Care Provider Judy vailable Gerson Dawson MD Primary Care Provider Unavail able [facility], Pcp Primary Care Provider Unavailabl Coleman Sampson MD Primary Care Provider Unavaila Ayo Demraco MD Primary Care Provider [phone] Annalee Jones MD Primary Care Provider Un available Yolande Nicholas DO Primary Care Pro vider Unavailable Anuj Priest DO Primary Care Provider Judy vailable [facility], Pcp Primary Care Provider Unavailabl e Encounter Details Date Type Department Care Team Description 10/18/2013 Refill Medicine/Pediatrics - [address] [phone] Madyson Vazquez PA-C Social History Tobacco Use [...] MG tablet [Madyson Vazquez PA-C] Preferred pharmacy: [facility] [place], [place] [address] BREANN OLIVAS Comment: To дмитрий Meyer in . Century 4pills 100mg documented in this encounter Plan of Treatment Not on file documented as of this encounter Visit Diagnoses Not on filedocumented in this encounter Care Teams Boxing Instructor Relationship Specialty Start Date End Date Pierre Arevalo MD PCP - General Internal Medicine 05/07/13 4 Gerson Dawson MD PCP - General Internal Medicine 01/30/14 03/20/14 [facility], Pcp PCP - General Internal Medicine 03/21/14 05/06/14 Coleman Mccarthy MD PCP - General Internal Medicine 05/07/14 07/18/16 Ayo Carpio MD [address] [place], [place] [phone] PCP - General Internal Medicine 07/19/16 01/05/17 Annalee Jones MD [address] [place] [address] PCP - General Internal Medicine 01/06/17 12/02/18 Yolande Nicholas, DO [address] [place] [address] PCP - General Internal Medicine 12/03/18 10/08/20 Anuj Priest, DO [address] [place] [address] PCP - General Internal Medicine 10/09/20 06/16/21 [facility], Pcp PCP - General Internal Medicine 06/17/21 documented as of this encounter
--- OUTSIDE RECORDS SUMMARY | 2024-09-16 09:43 | XMS_ITS | Encounter Summary ---
Author Organization [employer] [facility] Address [address] [place] [address] Care Team Providers Care Fleet Sales Associate Name Role Phone Ayo Carpio MD Primary Care Provider [phone] Annalee Jones MD Primary Care Provider Un available Yolande Nicholas DO Primary Care Pro vider Unavailable Anuj Priest DO Primary Care Provider Judy [facility], Pcp Primary Care Provider Unavailabl e Encounter Details Date Type Department Care Team Description 10/06/2016 Dispatch Manager Report Medical Records [address] [place] [address] Anuj Easton Social History Tobacco Use Types [...] filedocumented in this encounter Care Teams Fleet Sales Associate Relationship Specialty Start Date End Date Ayo Carpio MD [address] [place] [address] PCP - General Internal Medicine 07/19/16 01/05/17 Annalee Jones MD [address] [place] [address] PCP - General Internal Medicine 01/06/17 12/02/18 Yolande Nicholas, [address] [place] [address] PCP - General Internal Medicine 12/03/18 10/08/20 Anuj Priest, [address] [place] [address] PCP - General Internal Medicine 10/09/20 06/16/21 [facility], Pcp [address] [place] [address] PCP - General Internal Medicine 06/17/21 documented as of this encounter
--- OUTSIDE RECORDS SUMMARY | 2024-09-16 09:43 | XMS_ITS | Encounter Summary ---
Author Organization [employer] Address [address] [facility] 7t [place] [address] Care Team Providers Care Moss Bleacher Name Role Phone Sesar Pereyra MD Primary Care Provider [phone] Encounter Details Date Type Department Care Team (Late st Contact Info) Description 07/10/2024 Orders Only [facility] MEDICINE [address] [place] [address] Sesar Pereyra MD [address] [place] [address] Memory disturbance (Primary Dx) Social History Tobacco [...] documented as of this encounter Care Teams Moss Bleacher Relationship Specialty Start Date End Date Sesar Pereyra MD [address] [place] [address] PCP - General Internal Medicine 03/01/21 [facility] 03/22/24 documented as of this encounter
--- OUTSIDE RECORDS SUMMARY | 2024-09-16 09:43 | XMS_ITS | Encounter Summary ---
Author Organization [employer] Address [address] [facility] 7t [place] [address] Care Team Providers Care Pathology Transcriptionist Name Role Phone Sesar Pereyra MD Primary Care Provider [phone] Encounter Details Date Type Department Care Team ([facility] Contact Info) Description 07/10/2024 Telephone [facility] CHC MED & PEDS [address] [place], [place] [phone] Sesar Pereyra MD [address] [place] [address] Social History Tobacco Use Types Packs/Day Years [...] tablet was sent to the incorrect pharmacy. [facility] requested a transfer but was til to contact pcp office . Preferred pharmacy [facility] - [place], [place] - [address] [place] [address]. Pt [facility] has been without meds. documented in this encounter Plan of Treatment Not on file documented as of this encounter Visit Diagnoses Not on filedocumented in this encounter Additional Health Concerns Assessment Noted Time PHQ-9 Depression Total Score: 16 024 10:59 AM EDT documented as of this encounter Care Teams Pathology Transcriptionist Relationship Specialty Start Date End Date Sesar Pereyra MD [address] [place] [address] PCP - General Internal Medicine 03/01/21 [facility] 03/22/24 documented as of this encounter
--- OUTSIDE RECORDS SUMMARY | 2024-09-16 09:43 | XMS_ITS | Encounter Summary ---
Author Organization [facility] Address [address] [place] [address] Care Team Providers Care Electrical Manufacturing Engineer Name Role Phone Yolande Nicholas DO Primary Care Pro vider Unavailable Anuj Priest DO Primary Care Provider [facility], Pcp Primary Care Provider Unavailabl e Reason for Visit * Reason Onset Date Comments Faxed Order 12/20/2019 [facility] Encounter Details Date Type Department Care Team Description 12/20/2019 Telephone Adult Medicine [address] [address] Yolande Nicholas DO Faxed Order ([facility]) [...] on filedocumented in this encounter Care Teams Electrical Manufacturing Engineer Relationship Specialty Start Date End Date Yolande Nicholas DO PCP - General Internal Medicine 12/03/18 10/08/20 Anuj Priest DO PCP - General Internal Medicine 10/09/20 2 [facility], Pcp PCP - General Internal Medicine 06/17/21 documented as of this encounter
--- OUTSIDE RECORDS SUMMARY | 2024-09-16 09:43 | XMS_ITS | Encounter Summary ---
Author Organization [facility] Address [address] [place] [address] Care Team Providers Care Cadworx Piping Designer Name Role Phone Yolande Nicholas DO Primary Care Pro vider Unavailable Anuj Priest DO Primary Care Provider [facility], Pcp Primary Care Provider Unavailabl e Reason for Visit * Reason Onset Date Comments VNA Call 01/28/2020 Encounter Details Date Type Department Care Team Description 01/28/2020 Telephone Adult [address] [address] Yolande Nicholas DO VNA Call Social History [...] Kan R.N. - 01/28/2020 8:57 AM EDT [phone] (home) Pt is being seen by surgeons [...] on filedocumented in this encounter Care Teams Cadworx Piping Designer Relationship Specialty Start Date End Date Yolande Nicholas DO PCP - General Internal Medicine 12/03/18 10/08/20 Anuj Priest DO PCP - General Internal Medicine 10/09/[address] [place] [address], Pcp PCP - General Internal Medicine 06/17/21 documented as of this encounter
--- OUTSIDE RECORDS SUMMARY | 2024-09-16 09:43 | XMS_ITS | Encounter Summary ---
Author Organization [employer] Address [address] [facility] 7t [place] [address] Care Team Providers Care Lawyer Criminal Name Role Phone Sesar Pereyra MD Primary Care Provider [phone] Reason for Visit * Reason Onset Date Comments Med Refill 04/28/2024 Encounter Details Date Type Department Care Team ([facility] st Contact Info) Description 04/28/2024 Refill [facility] CHC MED & PEDS [address] [place], [place] [phone] Sesar Pereyra MD [address] [place] [address] Social History Tobacco Use Types Packs/Day Years [...] documented as of this encounter Care Teams Lawyer Criminal Relationship Specialty Start Date End Date Sesar Pereyra MD [address] [place] [address] PCP - General Internal Medicine 03/01/21 [facility] 03/22/24 documented as of this encounter
--- OUTSIDE RECORDS SUMMARY | 2024-09-16 09:43 | XMS_ITS | Encounter Summary ---
Author Organization [facility] Address [address] [place] [address] Care Team Providers Care Plate Drying Machine Tender Name Role Phone Annalee Jones MD Primary Care Provider Un available Yolande Nicholas DO Primary Care Pro vider Unavailable Anuj Priest DO Primary Care Provider Judy [facility], Pcp Primary Care Provider Unavailabl e Encounter Details Date Type Department Care Team Description 11/14/2017 Pt. Non Urgent Medic al Question Adult Medicine [address] [address] Annalee Jones MD Social History Tobacco Use [...] 10 Qty. Sent to [facility] y [address] [facility] [address] Tele [phone] documented in this encounter Plan of Treatment Not on file documented as of this encounter Visit Diagnoses Not on filedocumented in this encounter Care Teams Plate Drying Machine Tender Relationship Specialty Start Date End Date Annalee Jones MD PCP - General Internal Medicine 01/06/17 9 Yolande Nicholas DO PCP - General Internal Medicine 12/03/18 10/08/20 Anuj Priest DO PCP - General Internal Medicine 10/09/20 2 [facility], Pcp PCP - General Internal Medicine 06/17/21 documented as of this encounter
--- OUTSIDE RECORDS SUMMARY | 2024-09-16 09:43 | XMS_ITS | Encounter Summary ---
Author Organization [employer] Address [address] [facility] 7t [place] [address] Care Team Providers Care Undertaker Assistant Name Role Phone Sesar Pereyra MD Primary Care Provider [phone] Reason for Visit * Reason Onset Date Comments Med Refill 04/26/2024 Encounter Details Date Type Department Care Team ([facility] st Contact Info) Description 04/26/2024 Telephone [facility] MEDICINE [address] [place] [address] Sesar Pereyra MD [address] [place] [address] Med Refill Social History Tobacco Use Types [...] 7.5 MG tablet To be sent to: [facility] - [place], [place] - [address] [facility] [address] documented in this encounter Plan of Treatment Not on file documented as of this encounter Visit Diagnoses Not on filedocumented in this encounter Additional Health Concerns Assessment Noted Time PHQ-9 Depression Total Score: 16 024 10:59 AM EDT documented as of this encounter Care Teams Undertaker Assistant Relationship Specialty Start Date End Date Sesar Pereyra MD [address] [place] [address] PCP - General Internal Medicine 03/01/21 [facility] 03/22/24 documented as of this encounter
--- OUTSIDE RECORDS SUMMARY | 2024-09-16 09:43 | XMS_ITS | Encounter Summary ---
Author Organization [employer] Address [address] [facility] 7t [place] [address] Care Team Providers Care Mule Operator Name Role Phone Sesar Pereyra MD Primary Care Provider [phone] Reason for Visit * Reason Onset Date Comments Med Refill 04/02/2024 Encounter Details Date Type Department Care Team (Late st Contact Info) Description 04/02/2024 Telephone [facility] [address] [place] [address] Sesar Pereyra MD [address] [place] [address] Med Refill Social History Tobacco Use Types [...] 9:39 AM EST Medication was sent to [id number] on 04/01/24 #30 with 11 refills. * Telephone Encounter - Miri Young - 04/02/2024 9:33 AM EST TC from pt requesting medication refill. Medications needing refill : metoprolol tartrate (Lopressor) 25 MG tablet To be sent to: [facility] documented in this encounter Plan of Treatment Not on file documented as of this encounter Visit Diagnoses Not on filedocumented in this encounter Additional Health Concerns Assessment Noted Time PHQ-9 Depression Total Score: 16 024 10:59 AM EDT documented as of this encounter Care Teams Mule Operator Relationship Specialty Start Date End Date Sesar Pereyra MD [address] [place] [address] PCP - General Internal Medicine 03/01/21 [facility] 03/22/24 documented as of this encounter
--- OUTSIDE RECORDS SUMMARY | 2024-09-16 09:44 | XMS_ITS | Clinical Summary ---
Author Organization [facility] Address [address] [place] [address] Care Team Providers Care Marketing Consultant Name Role Phone Nuha Galvin PA-C Primary Care Provider [phone] Source Comments PLEASE NOTE, if this patient [...] Date Sleep disorder 02/02/2015 Overview (02/02/2015): Saw [facility] and sleep on 01/15/2015: Dr. Johnson [...] once a year. In remission Seen at [facility] urology Depression with anxiety 04/01/2014 Overview (04/01/2014): Dr. Pradhan at [facility]. Is going to establish care at a new facility. 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 Hensley in 2006. Sees this doctor once a year at [facility]. Follows up with [...] SAF[employer] [place] MED[employer]ARE - [place] Care Teams Marketing Consultant Relationship Specialty Start Date End Date Nuha Galvin PA-C [address] [place] [id number] PCP - General 03/21/18
--- OUTSIDE RECORDS SUMMARY | 2024-09-16 09:44 | XMS_ITS | Encounter Summary ---
Author Organization [employer] Address [address] [place] [address] 7 [place] [address] Care Team Providers Care Tetryl Blender Operator Name Role Phone Sesar Pereyra MD Primary Care Provider [phone] Reason for Referral * Hospital - Outpatient (Routine) - Closed Specialty Diagnoses / Procedures Referred By Wander reynolds Referred To Contact Diagnoses Sleep disorder Snoring Procedures Polysomnography Sesar Pereyra MD [address] [place] [address] Phone: tel: fax: [address] Phone: tel: fax: Referral ID Status Reason Start Date Expiration Date Visits Re quested Visits Authorized [id number] Closed 08/02/2024 08/02/2025 1 1 Encounter Details Date Type Department Care Team (Late st Contact Info) Description 08/01/2024 Orders Only [facility] MED & PEDS [address] [place], [place] [phone] Sesar Pereyra MD [address] [place] [phone] Sleep disorder (Primary Dx); Snoring Social History [...] EDT Narrative 08/26/2024 12:50 PM EDT ? [facility] ?[address] ?[place] [address] ?XRay Report ? Signed ? Patient: Tho,Alex ?MR#: [id number] ?? [id number] ? : 1945 ?Acct:[id number] ? Age/Sex: 79 / M ?ADM Date: 08/26/24 ? Loc: HO.ED ? Attending Dr: ? Ordering Physician: Lonny Delgado ?? Date of Service: 08/26/24 ?? Procedure(s): XR chest 2V ?? Accession Number(s): [id number] ? cc: Sesar Pereyra MD; Lonny Delgado [...] DD/ 1235 ? TD/TT: 08/26/24 1240 ? Logistic Specialist: ? Procedure Note Donotuseinterpreter, Image - 08/26/[address] [address] XRay Report Signed Patient: Ronald Nettles#: [id number] : 7Acct:[id number] Age/Sex: 79 / MADM Date: 08/26/24 Loc: HO.ED Attending Dr: Ordering Physician: Lonny Delgado Date of Service: 08/26/24 Procedure(s): XR chest 2V Accession Number(s): [id number] cc: Sesar Pereyra MD; Lonny Delgado EXAMINATION: [...] 08/26/24 1248 DD/ 1235 TD/TT: 08/26/24 1240 Logistic Specialist: [facility] External Provider IMG XR PROCEDURES Final Result * XR Shoulder 2+ Views Left (08/01/2024 10:00 AM EDT) Anatomical Region Laterality Modality Upper Extremities, Shoulder Left Radi ographic Imaging 08/01/2024 10:0 0 AM EDT Narrative 08/02/2024 8:13 AM EDT ? [facility] ? [address] ?[place] [address] ?XRay Report ? Signed ? Patient: Prawlucki,Alex ?MR#: [id number] ?? [id number] ? : 1945 ?Acct:[id number] ? Age/Sex: 79 / M ?ADM Date: 08/01/24 ? Loc: HO.HOSX ? Attending Dr: Royce Kothari MD ? Ordering Physician: Royce Kothari MD ?? Date of Service: 08/01/24 ?? Procedure(s): XR shoulder LT min 2V ?? Accession Number(s): [id number] ? cc: Sesar Pereyra MD; Royce Kothari [...] DD/ 1000 ? TD/TT: 08/01/24 1005 ? Logistic Specialist: ? Procedure Note Alonzo Ng - 08/02/2024 [facility] [address] [place] [address] [address] [place] [address] XRay Report Signed Patient: Alex Nettles#: [id number] : 7Acct:[id number] Age/Sex: 79 / MADM Date: 08/01/24 Loc: HO.HOSX Attending Dr: Royce Kothari MD Ordering Physician: Royce Kothari MD Date of Service: 08/01/24 Procedure(s): XR shoulder LT min 2V Accession Number(s): [id number] cc: Sesar Pereyra MD; Royce Kothari MD [...] 08/02/24 0811 DD/ 1000 TD/TT: 08/01/24 1005 Logistic Specialist: [facility] External Provider IMG XR PROCEDURES Final Result documented in this encounter Visit Diagnoses Diagnosis Sleep disorder- Primary Unspecified sleep disturbance Snoring Other dyspnea and respiratory abnormality documented in this encounter Additional Health Concerns Assessment Noted Time PHQ-9 Depression Total Score: 6 07/25/19 25 3:22 PM EDT documented as of this encounter Care Teams Tetryl Blender Operator Relationship Specialty Start Date End Date Sesar Pereyra MD [address] [place] [id number] PCP - General Internal Medicine 03/01/21 [facility] 03/22/24 documented as of this encounter
--- OUTSIDE RECORDS SUMMARY | 2024-09-16 09:44 | XMS_ITS | Encounter Summary ---
Author Organization [facility] Address [address] [place] [address] Care Team Providers Care Bag Turner Name Role Phone Yolande Nicholas DO Primary Care Pro vider Unavailable Anuj Priest DO Primary Care Provider [facility], Pcp Primary Care Provider Unavailabl e Reason for Visit * Reason Onset Date Comments Faxed Order 03/08/2020 Encounter Details Date Type Department Care Team Description 03/08/2020 Telephone Adult [address] [address] Yolande Nicholas DO Faxed Order Social History [...] review, sign, date, and fax back to [phone] * Telephone Encounter - Gerri Parra - 03/08/2020 2:16 PM EST [facility] IS FAXING ORDERS TO BE SIGN AND FAX BACK TO [phone]. documented in this encounter Plan of Treatment Not on file documented as of this encounter Visit Diagnoses Not on filedocumented in this encounter Care Teams Bag Turner Relationship Specialty Start Date End Date Yolande Nicholas DO PCP - General Internal Medicine 12/03/18 10/08/20 Anuj Priest DO PCP - General Internal Medicine 10/09/[address] [place] [address], Pcp PCP - General Internal Medicine 06/17/21 documented as of this encounter
--- OUTSIDE RECORDS SUMMARY | 2024-09-16 09:44 | XMS_ITS | Encounter Summary ---
Author Organization [facility] Address [address] [place] [address] Care Team Providers Care Balance Weigher Name Role Phone Annalee Jones MD Primary Care Provider Un available Yolande Nicholas DO Primary Care Pro vider Unavailable Anuj Priest DO Primary Care Provider Judy vailable [facility], Pcp Primary Care Provider Unavailabl e Encounter Details Date Type Department Care Team Description 09/04/2018 Release of Information Medical Records [address] [place] [address] Abstract, Provider Social History Tobacco Use Types [...] on filedocumented in this encounter Care Teams Balance Weigher Relationship Specialty Start Date End Date Annalee Jones MD PCP - General Internal Medicine 01/06/17 9 Yolande Nicholas DO PCP - General Internal Medicine 12/03/18 10/08/20 Anuj Priest DO PCP - General Internal Medicine 10/09/20 2 Jj, Pcp PCP - General Internal Medicine 06/17/21 documented as of this encounter
--- OUTSIDE RECORDS SUMMARY | 2024-09-16 09:44 | XMS_ITS | Encounter Summary ---
Author Organization [employer] Address [address] [facility] 7t [place] [address] Care Team Providers Care Marketing Intern Name Role Phone Sesar Pereyra MD Primary Care Provider [phone] Reason for Visit * Reason Comments Med Refill Encounter Details Date Type Department Care Team ([facility] st Contact Info) Description 10/26/2022 Refill [facility] MED & PEDS [address] [place], [place] [phone] Sesar Pereyra MD [address] [place], [place] [phone] Social History Tobacco Use Types Packs/Day Years [...] filedocumented in this encounter Care Teams Marketing Intern Relationship Specialty Start Date End Date Sesar Pereyra MD [address] [place], [place] [address] [id number] PCP - General Internal Medicine 03/01/21 [facility] 03/22/24 documented as of this encounter
--- OUTSIDE RECORDS SUMMARY | 2024-09-16 09:44 | XMS_ITS | Encounter Summary ---
Author Organization [email or web address] Address [address] [facility] 7t [place] [address] Care Team Providers Care Director Internal Control Name Role Phone Sesar Pereyra MD Primary Care Provider [phone]- [phone] Reason for Visit * Reason Comments Med Refill Encounter Details Date Type Department Care Team ([facility] st Contact Info) Description 10/19/2022 Refill [facility] CH[facility] MED & PEDS [address] [place], [place] [phone] Sesar Pereyra MD [address] [place], [place] [phone] Social History Tobacco Use Types Packs/Day Years [...] in this encounter Care Teams Director Internal Control Relationship Specialty Start Date End Date Sesar Pereyra MD [address] [place], [place] [address] [address] PCP - General Internal Medicine 03/01/21 [facility] 03/22/24 documented as of this encounter
--- OUTSIDE RECORDS SUMMARY | 2024-09-16 09:44 | XMS_ITS | Encounter Summary ---
Author Organization [employer] Address [address] [facility] 7t [place] [address] Care Team Providers Care Sql Data Architect Name Role Phone Sesar Pereyra MD Primary Care Provider [phone]- [phone] Reason for Visit * Reason Onset Date Comments Nurse Triage 09/04/2024 Encounter Details Date Type Department Care Team (Late st Contact Info) Description 09/04/2024 Telephone [facility] [address] [place] [address] Sesar Pereyra MD [address] [place] [address] Nurse Triage Social History Tobacco Use Types [...] past 3 days. Pt was seen in [facility] 08/29/24 with dx of pneumonia and prescribed [...] You become worse * Telephone Encounter - Carl Diazarez - 09/04/2024 4:29 PM EDT Symptom: Diarrhea Outcome: Schedule an appointment to be seen within 24 hours Reason: Caller denied all higher acuity questions The caller accepted this outcome. *pt was in [facility] due to pneumonia documented in this encounter Plan of Treatment Not on file documented as of this encounter Visit Diagnoses Not on filedocumented in this encounter Additional Health Concerns Assessment Noted Time PHQ-9 Depression Total Score: 6 07/24/ 25 3:22 PM EDT documented as of this encounter Care Teams Sql Data Architect Relationship Specialty Start Date End Date Sesar Pereyra MD [address] [place] [address] PCP - General Internal Medicine 03/01/21 [facility] 03/22/24 documented as of this encounter
--- OUTSIDE RECORDS SUMMARY | 2024-09-16 09:44 | XMS_ITS | Encounter Summary ---
Author Organization [employer] Address [address] [facility] 7t [place] [address] Care Team Providers Care Saw Filer Name Role Phone Sesar Pereyra MD Primary Care Provider [phone] Reason for Visit * Reason Comments Med Refill Encounter Details Date Type Department Care Team (Late st Contact Info) Description 08/29/2023 Refill [facility] [address] [place] [address] Sesar Preeyra MD [address] [place] [address] Social History Tobacco Use Types Packs/Day Years [...] documented as of this encounter Care Teams Saw Filer Relationship Specialty Start Date End Date Sesar Pereyra MD [address] [place] [address] PCP - General Internal Medicine 03/01/21 [facility] 03/22/24 documented as of this encounter
--- OUTSIDE RECORDS SUMMARY | 2024-09-16 09:44 | XMS_ITS | Clinical Summary ---
Author Organization [employer] Address [address] [facility] [address] [place] [address] Care Team Providers Care Public Relations Player Name Role Phone Sesar Pereyra MD Primary [...] 1 CAPSULE BY MOUTH TWICE A DAY (BUBBLE-MATHUES) 56 capsule 5 02/06/20 24 025 Discontinued [...] considered Sleep disorder 02/02/2015 Overview (01/22/2024): Saw [facility] and sleep on 01/15/2015: Dr. Johnson Likely DILLAN sleep study ordered. Given that he has RLS, He may have periodic limb movement disorder which can be checked for in the study. Check ferritin. Will await sleep study. Depression with anxiety 04/01/2014 Overview (06/16/2022): Dr. Pradhan at [facility]. Is going to establish care [...] this doctor once a year at [facility]. Follows up with this facility every 6 months. 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 [address] [place] [address] Sesar Pereyra MD fy 09/09/2024 Orders Only GENERIC EXTERNAL DATA DEPARTMENT Provider, Generic External Data 09/04/[address] [facility] [address] [place] [address] Sesar Pereyra MD Nurse Triage 09/03/2024 Refill [facility] [address] [place], [place] [phone] Sesar Pereyra MD Paroxysmal atrial fibrillation (CMS/HCC); Primary insomnia 09/02/[address] [facility] [address] [place] [address] Sesar Pereyra MD fyi 09/02/2024 Refill [facility] [address] [place] [address] Sesar Pereyra MD 08/26/2024 Orders Only GENERIC EXTERNAL DATA DEPARTMENT Provider, Generic External Data 08/26/[address] [facility] [address] [place] [phone] Sesar Pereyra MD Follow-up 08/12/2024 Refill [facility] [address] [place] [address] Loyda Jacobson, CLAUDIA 08/12/[address] [facility] [address] [place] [address] Sesar Pereyra MD Memory disturbance 08/08/2024 Telephone [facility] [address] [place] [address] Loyda Jacobson, RN Med Refill 08/08/[address] [facility] [address] [place] [address] Sesar Pereyra MD Med Refill 08/07/2024 Telephone [facility] [address] [place] [phone] Sesar Pereyra MD PSG ORDER 08/02/2024 Refill [facility] [address] [place] [address] Sesar Pereyra MD Primary insomnia; Paroxysmal atrial fibrillation (CMS/HCC) 08/02/2024 Telephone [facility] [address] [place] [address] Sesar Pereyra MD Results 08/01/2024 Orders Only [facility] [address] [place] [address] Sesar Pereyra MD Sleep disorder (Primary Dx); Snoring 07/24/2024 2:15 PM EDT Office Visit [facility] [address] [place] [address] Sesar Pereyra MD Multifocal pneumonia (Primary Dx); Dislocation of left ulnohumeral joint, initial encounter; Essential hypertension; Dietary counseling; Exercise counseling; Class 1 obesity due to excess calories with serious comorbidity and body mass index (BMI) of 32.0 to 32.9 in adult 07/24/2024 Travel 07/22/[address] [address] Sesar Pereyra MD ER Follow-up 07/11/2024 Orders Only GENERIC EXTERNAL DATA DEPARTMENT Provider, Generic External Data 07/10/2024 Orders Only [address] [address] Sesar Pereyra MD Memory disturbance (Primary Dx) 07/10/2024 Telephone [facility] [address] [place], [place] [phone] Sesar Pereyra MD 07/09/2024 Telephone [facility] [address] [place], [place] [phone] Gracie Jewell RN NTTS OUTREACT CALL 07/04/[address] [address] Sesar Pereyra MD 06/24/2024 Orders Only [address] [address] Sesar Pereyra MD Paroxysmal atrial fibrillation ([facility]/HCC) (Primary Dx) 06/21/[address] [address] Sesar Pereyra MD Medication Question 06/19/2024 Orders [...] EDT Narrative 09/12/2024 1:19 PM EDT ? [facility] ?[address] ?[place] [address] ?XRay Report ? Signed ? Patient: Prawismaelki,Alex ?MR#: [id number] ?? [id number] ? : 1945 ?Acct:[id number] ? Age/Sex: 79 / M ?ADM Date: 05/12/25 ? Loc: HO.S3 ?347-1 ? Attending Dr: Xiomara Steele MD ? Ordering Physician: Tree Hand ?? Date of Service: 09/12/24 ?? Procedure(s): XR shoulder LT min 2V ?? Accession Number(s): [id number] ? cc: Tree Hand; Sesar Pereyra MD [...] DD/ 1226 ? TD/TT: 09/12/24 1236 ? Tufting Machine Operator Single Needle: ? Procedure Note Alonzo Ng - 09/12/[address] [address] XRay Report Signed Patient: oRnald Nettles#: [id number] : 7Acct:[id number] Age/Sex: 79 / MADM Date: 09/09/24 Loc: HO.S3 347-[address]: Xiomara Steele MD Ordering Physician: Tree Hand Date of Service: 09/12/24 Procedure(s): XR shoulder LT min 2V Accession Number(s): [id number] cc: Tree Hand; Sesar Pereyra MD EXAMINATION: [...] 09/12/24 1316 DD/ 1226 TD/TT: 09/12/24 1236 Tufting Machine Operator Single Needle: [facility] External Provider IMG XR PROCEDURES Final Result * CT Chest w/o Contrast (09/10/2024 6:50 PM EDT) Anatomical Region Laterality Modality Body, Chest Computed Tomogra phy 09/10/2024 6:50 PM EDT Narrative 09/11/2024 10:46 AM EDT ? [facility] ?[address] ?[place] [address] ? CT Scan Report ? Signed ? Patient: Prawlucki,Alex ?MR#: [id number] ?? [id number] ? : 1945 ?Acct:[id number] ? Age/Sex: 79 / M ?ADM Date: 09/09/24 ? Loc: HO.S3 ?347-1 ? Attending Dr: Xiomara Steele MD ? Ordering Physician: Andrez Hendrix MD ?? Date of Service: 09/10/24 ?? Procedure(s): CT chest wo IV con ?? Accession Number(s): [id number] ? cc: Sesar Pereyra MD; Andrez Hendrix MD ? Report Number: ?? [id number]: Total DLP = ??570.00 mGy-cm ?? EXAMINATION: [...] ? DD/ 49 ? TD/TT: 09/10/241849 ? Tufting Machine Operator Single Needle: ? Procedure Note Alonzo Ng - 09/11/[address] [place] [address] [address] Scan Report Signed Patient: Ronald Nettles#: [id number] : 1945cct:[id number] Age/Sex: 79 / MADM Date: 09/09/24 Loc: HO.S3 347-[address]: Xiomara Steele MD Ordering Physician: Andrez Hendrix MD Date of Service: 09/10/24 Procedure(s): CT chest wo IV con Accession Number(s): [id number] cc: Sesar Pereyra MD; Andrez Hendrix MD Report Number: [id number]: Total DLP = 570.00 mGy-cm EXAMINATION: CT [...] OV> 09/11/24 1043 DD/ 49 TD/TT: 09/10/241849 Tufting Machine Operator Single Needle: us [facility] External Provider IMG CT PROCEDURES Final Result * (ABNORMAL) Lactic Acid (09/09/2024 7:54 AM EDT) Only the most recent of3 resultswithin the time period is included. Lactic Acid 2.2(HH) 0.5 - 2.0 mmol/L [facility] Comment:Critical value for L ACTIC: Results called to and read backby: HSUW Person calling: FÁTIMA Date: 09/09/24 Time: 824 09/09/2024 7:54 AM EDT 09/09/2024 8:01 AM EDT Generic External Data Provider LAB BLOOD ORDERAB LES Final Result [facility] [address] [place] [phone] * (ABNORMAL) VENOUS BLOOD GAS (09/09/2024 7:45 AM EDT) Only the most recent of2 resultswithin the time period is included. VBG pH 7.50(H) 7.32 - 7.43 [facility] Comment:METER #: [id number] additional_comment: Cb patelha VBG PCO2 28 mmHg [facility] Comment:METER #: [id number] additional_comment: Cb patelha VBG PO2 38 mmHg [facility] Comment:METER #: [id number] additional_comment: Cb patelha VBG Base Excess 0.7 mmol/L [facility] Comment:METER #: [id number] additional_comment: Cb patelha VBG HCO3 22 22 - 26 mmol/L [facility] Comment:METER #: [id number] additional_comment: Cb patelha O2 Sat, Garrick 60.0 % [facility] Comment:METER #: [id number] additional_comment: Cb patelha 09/09/2024 7:45 AM EDT 09/09/2024 7:49 AM EDT Generic External Data Provider LAB BLOOD ORDERAB LES Final Result Performing Organization Address [facility] Co de Phone Number [facility] [address] [place] [phone] * SARS-CoV-2 RNA, Influenza A/B, and RSV RNA, Ql NAAT (09/09/2024 6:26 AM EDT) Only the most recent of2 resultswithin the time period is included. Influenza A PCR NEGATIVE Negative [facility] Influenza B PCR NEGATIVE Negative [facility] Resp Syncy Virus RNA Qual PCR NEGATIVE Negative [facility] SARS COV2 PCR NEGATIVE Negative [facility] Comment:All test results mus t [...] use by authorized laboratories.Testing performed on the [employer] GeneXpert utilizingreal-time RT-PCR.All SARS CoV2 and positive influenza A/B results arereported to [facility]. 09/09/2024 6:26 AM EDT 09/09/2024 6:33 AM EDT Generic External Data Provider LAB MICROBIOLOGY - GENERAL ORDERABLES Final Result Performing Organization Address [facility]/ZIP Co de Phone Number [facility] [address] [place] [phone] * XR Chest 1 View (09/09/2024 6:21 AM EDT) Only the most recent of2 resultswithin the time period is included. Anatomical Region Laterality Modality Chest Radiographic Homa ging 09/09/2024 6:21 AM EDT Narrative 09/09/2024 6:23 AM EDT ? [facility] ?[address] ?[place] [address] ?XRay Report ? Signed ? Patient: Prawlucki,Alex ?MR#: [id number] ?? [id number] ? : 1945 ?Acct:[id number] ? Age/Sex: 79 / M ?ADM Date: 09/09/24 ? Loc: HO.ED ? Attending Dr: ? Ordering Physician: Generic ED Physician ?? Date of Service: 09/09/24 ?? Procedure(s): XR chest 1V ?? Accession Number(s): [id number] ? cc: Sesar Pereyra MD; Generic ED [...] ? DD/ 0 ? TD/TT: 09/09/24620 ? Tufting Machine Operator Single Needle: ? Procedure Note Hernandez, Image - 09/09/2024 [place] [address] XRay Report Signed Patient: Ronald Nettles#: [id number] : 7Acct:[id number] Age/Sex: 79 / MADM Date: 09/09/24 Loc: HO.ED Attending Dr: Ordering Physician: Generic ED Physician Date of Service: 09/09/24 Procedure(s): XR chest 1V Accession Number(s): [id number] cc: Sesar Pereyra MD; Generic ED Physician [...] in OV> 09/09/24621 DD/ 0 TD/TT: 09/09/24620 Tufting Machine Operator Single Needle: [facility] External Provider IMG XR PROCEDURES Final Result * Hold Lavender - Possible Hematology (08/26/2024 5:28 PM EDT) [facility] Possible Hematololgy SEE NOTE [facility] Comment:Specimen will be hel d untested for 8 hours. Call Hematologyif testing is desired. 08/26/2024 5:28 PM EDT 08/26/2024 5:34 PM EDT [facility] External Data Provider HISTORICAL/NON OR DERABLE LABS Final Result Performing Organization Address City/[facility]/ZIP Co de Phone Number [facility] [address] [place] [phone] * (ABNORMAL) B Type Natriuretic Peptide (BNP) (08/26/2024 5:16 PM EDT) [facility] B Type Natriuretic Peptide 379(H) <100 pg/mL [facility] 08/26/2024 5:16 PM EDT 08/26/2024 5:18 PM EDT Generic External Data Provider LAB BLOOD ORDERAB LES Final Result Performing Organization Address City/[facility]/ZIP Co de Phone Number [facility] [address] [place] [phone] * (ABNORMAL) CBC auto differential (08/26/2024 1:18 PM EDT) Only the most recent of3 resultswithin the time period is included. [facility] White Blood Count 12.2(H) 4.8 - 10.8 X10*3/uL [facility] Red Blood Count 4.34(L) 4.60 - 5.80 X10*6/uL [facility] Hemoglobin 13.5(L) 14.0 - 18.0 g/dl [facility] Hematocrit 41.5(L) 42.0 - 52.0 % [facility] Mean Corpuscular Volume 95.6 80.0 - 98.0 fL [facility] Mean Corpuscular Hemoglobin 31.1 27.0 - 33.0 pg [facility] Mean Corpuscular HGB Conc 32.5 31.0 - 36.0 g/dl [facility] Red Cell Distribution Width 15.9 11.0 - 16.0 % [facility] Platelet Count 255 160 - 400 X10*3/uL [facility] Mean Platelet Volume 10.2 9.4 - 12.4 fL [facility] Neutrophils Percent Auto 88.1(H) 45 - 73 % [facility] Imm Gran Pct Auto 0.4 0.0 - 0.4 % [facility] Lymphocytes Percent Auto 3.6(L) 20 - 40 % [facility] Monocytes Percent Auto 7.6 2 - 11 % [facility] Eosinophils Percent Auto 0.0 0 - 4 % [facility] Basophils Percent Auto 0.3 0 - 2 % [facility] NRBC Pct Auto 0.0 0.0 - 0.2 /100WBC [facility] Neutrophils Absolute Auto 10.7(H) 2.0 - 8.3 x10*3/uL [facility] Imm Gran Abs Auto 0.05(H) 0.00 - 0.03 X10*3/uL [facility] Lymphocytes Absolute Auto 0.4(L) 1.2 - 4.9 X10*3/uL [facility] Monocytes Absolute Auto 0.9 0.1 - 1.2 X10*3/uL [facility] Eosinophils Absolute Auto 0.0 0.0 - 0.4 X10*3/uL [facility] Basophils Absolute Auto 0.0 0.0 - 0.2 X10*3/uL [facility] NRBC Abs Auto 0.000 0.0 - 0.012 X10*3/uL [facility] 08/26/2024 1:18 PM EDT 08/26/2024 1:21 PM EDT Generic External Data Provider LAB BLOOD ORDERAB LES Final Result Performing Organization Address City/[facility] Co de Phone Number [facility] [address] [place] [phone] * Magnesium (08/26/2024 1:17 PM EDT) [facility] Magnesium 1.9 1.6 - 2.6 mg/dL [facility] 08/26/2024 1:17 PM EDT 08/26/2024 1:21 PM EDT Generic External Data Provider LAB BLOOD ORDERAB LES Final Result Performing Organization Address [facility] Phone Number [facility] [address] [place] [phone] * Lipase (08/26/2024 1:17 PM EDT) Only the most recent of2 resultswithin the time period is included. [facility] Lipase 9 8 - 78 U/L [facility] 08/26/2024 1:17 PM EDT 08/26/2024 1:21 PM EDT Generic External Data Provider LAB BLOOD ORDERAB LES Final Result Performing Organization Address [facility] de Phone Number [facility] [address] [place] [phone] * (ABNORMAL) Comprehensive Metabolic Panel (08/26/2024 1:17 PM EDT) Only the most recent of2 resultswithin the time period is included. [facility] Sodium 135 135 - 145 mmol/L [facility] Potassium 4.5 3.3 - 5.1 mmol/L [facility] Comment:Slight Hemolysis.Int erpret result with caution. Chloride 106 96 - 108 mmol/L [facility] Carbon Dioxide 19(L) 22 - 29 mmol/L [facility] Anion Gap 15 12 - 20 [facility] Urea Nitrogen (BUN) 20(H) 9 - 16 mg/dL [facility] Creatinine, Serum 1.16 0.5 - 1.4 mg/dL [facility] Creatinine Clr Calc Pharmacy 68.8 [facility] Comment:eGFR (calculated fro m the MDRD study equation) and eCrCl(calculated from the Cockcroft-Gault equation) are based ondifferent parameters and may not yield comparable results.If eCrCl result is absurd, please check patient'sheight/weight. Estimated Glomerular Filt Rate >60 [facility] Comment:Chronic Kidney Disea se: Estimated GFR < 60 mL/min/1.38h2Rmvxsj Kidney Disease: Estimated GFR < 15 mL/min/1.73m2 Glucose 97 60 - 115 mg/dL [facility] Calcium 9.2 8.4 - 10.2 mg/dL [facility] Bilirubin, Total 0.7 0.0 - 1.0 mg/dL [facility] Aspartate Amino Transferase 27 5 - 37 U/L [facility] Comment:Slight Hemolysis.Int erpret result with caution. Alanine Aminotransferase 11 0 - 40 U/L [facility] Total Protein 7.0 6.5 - 8.0 g/dL [facility] Albumin Level 4.0 3.5 - 5.0 g/dL [facility] Alkaline Phosphatase 111 39 - 117 U/L [facility] 08/26/2024 1:17 PM EDT 08/26/2024 1:21 PM EDT us Generic External Data Provider LAB BLOOD ORDERAB LES Final Result [facility] [address] [place] [phone] [phone] * XR Chest 2 Views (08/26/2024 12:35 PM EDT) Only the most recent of2 resultswithin the time period is included. Anatomical Region Laterality Modality Chest Radiographic Homa ging 08/26/2024 12:3 5 PM EDT Narrative 08/26/2024 12:50 PM EDT ? [facility] ?[address] ?[place] [address] ?XRay Report ? Signed ? Patient: Alex Nettles ?MR#: [id number] ?? [id number] ? : 1945 ?Acct:[id number] ? Age/Sex: 79 / M ?ADM Date: 08/26/24 ? Loc: HO.ED ? Attending Dr: ? Ordering Physician: Lonny Delgado ?? Date of Service: 08/26/24 ?? Procedure(s): XR chest 2V ?? Accession Number(s): [id number] ? cc: Sesar Pereyra MD; Lonny Delgado [...] DD/ 1235 ? TD/TT: 08/26/24 1240 ? Tufting Machine Operator Single Needle: ? Procedure Note Donotuseinterpreter, Image - 08/26/[address] [address] XRay Report Signed Patient: Alex NettlesMR#: [id number] : 1945cct:[id number] Age/Sex: 79 / MADM Date: 08/26/24 Loc: HO.ED Attending Dr: Ordering Physician: Lonny Delgado Date of Service: 08/26/24 Procedure(s): XR chest 2V Accession Number(s): [id number] cc: Sesar Pereyra MD; Lonny Delgado EXAMINATION: [...] 08/26/24 1248 DD/ 1235 TD/TT: 08/26/24 1240 Tufting Machine Operator Single Needle: us [facility] External Provider IMG XR PROCEDURES Final Result * HOLD LT BLUE - POSSIBLE COAG (07/11/2024 11:38 AM EDT) Hold Lt Blue - Possible Coag SEE NOTE [facility] Comment:Specimen will be hel d untested for 4 hours. Call Hematologyif testing is desired. 07/11/2024 11:3 8 AM EDT 07/11/2024 11:47 AM EDT us Generic External Data Provider LAB BLOOD ORDERAB LES Final Result [facility] [address] [place] [address] [phone] * FL Guidance in OR (06/21/2024 5:50 PM EST) Anatomical Region Laterality Modality X-Ray Angiograph y 06/21/2024 5:50 PM EST Narrative 06/24/2024 8:13 AM EST ? [facility] ?[address] ?[place] [address] ? Fluoroscopy Report ? Signed ? Patient: Alex Nettles ?MR#: [id number] ?? [id number] ? : 1945 ?Acct:[id number] ? Age/Sex: 79 / M ?ADM Date: 06/19/24 ? Loc: HO.S3 ?363-2 ? Attending Dr: Tania Bernabe ORGANIC GARDENING TEACHER ? Ordering Physician: Royce Kothari MD ?? Date of Service: 06/21/24 ?? Procedure(s): FL guidance in OR ?? Accession Number(s): [id number] ? cc: Sesar Pereyra MD; Royce Kothari [...] DD/ 1750 ? TD/TT: 06/21/24 175 ? Tufting Machine Operator Single Needle: ? Procedure Note Doncathieter, Image - 06/24/[address] [address] Fluoroscopy Report Signed Patient: Alex NettlesMR#: [id number] : 1945cct:[id number] Age/Sex: 79 / MADM Date: 06/19/24 Loc: HO.S3 363-[address]: Tania Bernabe ORGANIC GARDENING TEACHER Ordering Physician: Royce Kothari MD Date of Service: 06/21/24 Procedure(s): FL guidance in OR Accession Number(s): [id number] cc: Sesar Pereyra MD; Royce Kothari MD [...] OV> 06/24/24 0810 DD/ 49 TD/TT: 06/21/241749 Tufting Machine Operator Single Needle: [facility] External Provider IMG IR PROCEDURES Final Result * CT Humerus (06/19/2024 8:00 PM EST) Anatomical Region Laterality Modality Computed Tomogra phy 06/19/2024 8:00 PM EST Narrative 06/19/2024 8:02 PM EST ? [facility] ?[address] ?[place] [address] ? CT Scan Report ? Signed ? Patient: ThoAlex ?MR#: [id number] ?? [id number] ? : 1945 ?Acct:[id number] ? Age/Sex: 79 / M ?ADM Date: 06/19/24 ? Loc: HO.ED ? Attending Dr: ? Ordering Physician: Angela Moura MD ?? Date of Service: 06/19/24 ?? Procedure(s): CT humerus LT wo IV con ?? Accession Number(s): [id number] ? cc: Sesar Pereyra MD; Angela Moura MD ? Report Number: ?? [id number]: Total DLP = ??192.00 mGy-cm ? CLINICAL [...] of the dorsal margin of the glenoid. Uhxuksdn-yn-vqhnp ?? 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 ?? 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 ?? Please refer to separate report for x-rays of the partially included elbow. ?? Mild imaged rib deformities in the lzixn-hf-aied appear old/chronic. ? Impression: ?? 1. Anterior [...] ? DD/ 99 ? TD/TT: 06/19/241999 ? Tufting Machine Operator Single Needle: ? Procedure Note Donjr, Image - 06/20/[address] [address] [address] Scan Report Signed Patient: Alex NettlesMR#: [id number] : 1945cct:[id number] Age/Sex: 79 / MADM Date: 06/19/24 Loc: HO.ED Attending Dr: Ordering Physician: Angela Moura MD Date of Service: 06/19/24 Procedure(s): CT humerus LT wo IV con Accession Number(s): [id number] cc: Sesar Pererya MD; Angela Moura MD Report Number: [id number]: Total DLP = 192.00 mGy-cm CLINICAL HISTORY: [...] of the dorsal margin of the glenoid. Dieaedxn-zs-btqlo effusion with lipohemarthrosis of the left glenohumeral joint. 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 Please refer to separate report for x-rays of the partially includedelbow. Mild imaged rib deformities in the ewaie-ia-qtby appear old/chronic. Impression: 1. Anterior dislocation of [...] in OV> 06/19/242001 DD/ 99 TD/TT: 06/19/241999 Tufting Machine Operator Single Needle: [facility] External Provider IMG CT PROCEDURES Final Result * (ABNORMAL) Prothrombin Time-INR (06/19/2024 7:57 PM EST) Prothrombin Time 16.0(H) 10.9 - 12.4 SEC [facility] INTERNATIONAL NORM RATIO 1.4(H) 0.9 - 1.1 [facility] Comment:INTERNATIONAL NORMAL IZED RATIO (INR) [...] ORDERAB LES Final Result Performing Organization Address City/State/[facility] Co de Phone Number [facility] [address] [place] [phone] * XR Elbow 3+ Views Left (06/19/2024 7:16 PM EST) Anatomical Region Laterality Modality Upper Extremities, Elbow Left Radiogr aphic Imaging 06/19/2024 7:16 PM EST Narrative 06/19/2024 7:18 PM EST ? [place] [facility] ?[address] ?[place] [address] ?XRay Report ? Signed ? Patient: Prawlucki,Alex ?MR#: [id number] ?? [id number] ? : 1945 ?Acct:[id number] ? Age/Sex: 79 / M ?ADM Date: 06/19/24 ? Loc: HO.ED ? Attending Dr: ? Ordering Physician: Angela Moura MD ?? Date of Service: 06/19/24 ?? Procedure(s): XR elbow LT min 3V ?? Accession Number(s): [id number] ? cc: Sesar Pereyra MD; Angela Moura [...] ? DD/ 15 ? TD/TT: 06/19/241915 ? Tufting Machine Operator Single Needle: ? Procedure Note Alonzo Ng - 06/19/[address] [address] XRay Report Signed Patient: Ronald Nettles#: [id number] : 1945cct:[id number] Age/Sex: 79 / MADM Date: 06/19/24 Loc: HO.ED Attending Dr: Ordering Physician: Angela Moura MD Date of Service: 06/19/24 Procedure(s): XR elbow LT min 3V Accession Number(s): [id number] cc: Sesar Pereyra MD; Angela Moura MD [...] in OV> 06/19/241916 DD/ 15 TD/TT: 06/19/241915 Tufting Machine Operator Single Needle: [facility] [facility] IMG XR PROCEDURES Final Result * CT Head w/o Contrast (06/19/2024 7:12 PM EST) Anatomical Region Laterality Modality Head, Neck Computed Tomogra phy 06/19/2024 7:12 PM EST Narrative 06/19/2024 7:14 PM EST ? [facility] ?[address] ?[place] [address] ? CT Scan Report ? Signed ? Patient: Tho,Alex ?MR#: [id number] ?? [id number] ? : 1945 ?Acct:[id number] ? Age/Sex: 79 / M ?ADM Date: 06/19/ ? Loc: HO.ED ? Attending Dr: ? Ordering Physician: Lonny Delgado ?? Date of Service: 06/19/24 ?? Procedure(s): CT head/brain wo IV con ?? Accession Number(s): [id number] ? cc: Sesar Pereyra MD; Lonny Delgado ? Report Number: ?? [id number]: Total DLP = ??652.00 mGy-cm ? CLINICAL [...] ? DD/ 11 ? TD/TT: 06/19/241911 ? Tufting Machine Operator Single Needle: ? Procedure Note Hernandez, Alonzo - 06/19/[address] [place] [address] [address] Scan Report Signed Patient: Alex NettlesMR#: [id number] : 1945cct:[id number] Age/Sex: 79 / MADM Date: 06/19/24 Loc: HO.ED Attending Dr: Ordering Physician: Lonny Delgado Date of Service: 06/19/24 Procedure(s): CT head/brain wo IV con Accession Number(s): [id number] cc: Sesar Pereyra MD; Lonny Delgado Report Number: [id number]: Total DLP = 652.00 mGy-cm CLINICAL HISTORY: [...] in OV> 06/19/241912 DD/ 11 TD/TT: 06/19/241911 Tufting Machine Operator Single Needle: [facility] External Provider IMG CT PROCEDURES Final Result * Hepatitis C Ab (07/19/2023 11:42 AM EDT) Pathologist [facility] Hepatitis C Antibody Nonreactive Nonreactive [facility] Comment:Antibodies to HCV no t detected; does not exclude early acuteHCV infection. Blood Venous blood specimen / Unknown 07/19/2023 11:42 AM EDT 07/19/2023 2:25 PM EDT Sesar Pereyra MD LAB BLOOD ORDERABLES Final Result [facility] [address] [place] [phone] * (ABNORMAL) LIPID PANEL, STANDARD [...] ?? Ulisses MCDANIEL et al. MANDEEP. 2013;310(19): 6251-8394 ?? (http://education.Space-Time Insight.Corimmun/faq/WTS736) Non-HDL Cholesterol 104 <130 mg/dL (calc) [facility] Comment: For patients with diabetes plus 1 major ASCVD risk ?? factor, treating to a non-HDL-C goal of <100 mg/dL ?? (LDL-C of <70 mg/dL) is considered a therapeutic ?? option. Triglycerides 232(H) <150 mg/dL [facility] Comment: ?? If a non-fasting specimen was collected, consider repeat triglyceride testing on a fasting specimen if clinically indicated. ?? Estela et al. J. of Clin. Lipidol. 2015;9:129-169. ?? 03/05/2021 9:16 AM EDT Sesar Pereyra MD LAB BLOOD ORDERABLES Final Result [facility] [address] from Last 3 Months or Most Recently Relevant to Health Maintenance Insurance [employer] MEDICARE REPLACEMENT [facility] F[facility] Care Teams Public Relations Player Relationship Specialty Start Date End Date Sesar Pereyra MD [address] [place] [address] PCP - General Internal Medicine 03/01/21 [facility] 03/22/[facility]
--- OUTSIDE RECORDS SUMMARY | 2024-09-16 09:44 | XMS_ITS | Encounter Summary ---
Author Organization [facility] Address [address] [place] [address] Care Team Providers Care Doctor Of Osteopathy Name Role Phone Yolande Nicholas DO Primary Care Pro vider Unavailable Anuj Priest DO Primary Care Provider [facility], Pcp Primary Care Provider Unavailabl e Reason for Visit * Reason Onset Date Comments VNA Call 03/03/2020 Ngoc vna Encounter Details Date Type Department Care Team Description 03/03/2020 Telephone Adult Medicine [facility] [address] [place] [address] Yolande Nicholas DO VNA Call ([place] [facility]) Social History Tobacco Use Types Packs/Day [...] in this encounter Care Teams Doctor Of Osteopathy Relationship Specialty Start Date End Date Yolande Nicholas DO PCP - General Internal Medicine 12/03/18 10/08/20 Anuj Priest DO PCP - General Internal Medicine 10/09/[address] [place] [address], Pcp PCP - General Internal Medicine 06/17/21 documented as of this encounter
--- OUTSIDE RECORDS SUMMARY | 2024-09-16 09:44 | XMS_ITS | Encounter Summary ---
[facility] Address [address] [place] [address] Care Team Providers Care Prevention Rn Name Role Phone Annalee Jones MD Primary Care Provider Un available Yolande Nicholas DO Primary Care Pro vider Unavailable Anuj Priest DO Primary Care Provider Judy [facility], Pcp Primary Care Provider Unavailabl e Reason for Visit * Reason Onset Date Comments Faxed Order 11/22/2017 Encounter Details Date Type Department Care Team Description 11/22/2017 Telephone Adult [address] [address] Annalee Jones MD Faxed Order Social History [...] Villarreal Fidel - 11/22/2017 3:57 PM EDT [employer] IS FAXING A PRE AUTH FOR sildenafil (VIAGRA) 100 MG tablet. PAPER WORK PUT IN DR COSMO MENDEZ. [facility] TEL [phone] FAX documented in this encounter Plan of Treatment Not on file documented as of this encounter Visit Diagnoses Not on filedocumented in this encounter Care Teams Prevention Rn Relationship Specialty Start Date End Date Annalee Jones MD PCP - General Internal Medicine 01/06/17 9 Yolande Nicholas DO PCP - General Internal Medicine 12/03/18 10/08/20 Anuj Priest DO PCP - General Internal Medicine 10/09/20 2 [facility], Pcp PCP - General Internal Medicine 06/17/21 documented as of this encounter
--- OUTSIDE RECORDS SUMMARY | 2024-09-16 09:44 | XMS_ITS | Encounter Summary ---
Author Organization [employer] Address [address] [facility] [place] [address] Care Team Providers Care Liquid Fertilizer Servicer Name Role Phone Sesar Pereyra MD Primary Care Provider +1- [phone] Reason for Referral * Consultation (Routine) - Closed Specialty Diagnoses / Procedures Referred By Wander reynolds Referred To Contact Geriatric Medicine Diagnoses Memory disturbance Sesar Pereyra MD [address] [place] [address] Phone: tel: fax: [facility] [address] [place] [address] Phone: tel: fax: Referral ID Status Reason Start Date Expiration Date V isits Requested Visits Authorized [id number] Closed Specialty Services Required 01/11/2024 01/10/2025 1 1 Encounter Details Date Type Department Care Team (Late st Contact Info) Description 01/11/2024 Orders Only [facility] MED [facility]ED[facility] [address] [place], [place] [phone] Sesar Pereyra MD [address] [place] [address] Memory disturbance (Primary Dx) Social History Tobacco [...] documented as of this encounter Care Teams Liquid Fertilizer Servicer Relationship Specialty Start Date End Date Sesar Pereyra MD [address] [place] [address] PCP - General Internal Medicine 03/01/21 [facility] 03/22/24 documented as of this encounter
--- OUTSIDE RECORDS SUMMARY | 2024-09-16 09:44 | XMS_ITS | Encounter Summary ---
Author Organization [employer] Address 75 [facility] 7t [place] [address] Care Team Providers Care Book Trimmer Name Role Phone Sesar Pereyra MD Primary Care Provider +1- [phone] Reason for Visit * Reason Onset Date Comments fyi 09/11/2024 Encounter Details Date Type Department Care Team (Late st Contact Info) Description 09/11/2024 Telephone [facility] [address] [place] [address] Sesar Pereyra MD [address] [place] [address] fyi Social History Tobacco Use Types Packs/Day [...] 2:46 PM EDT Tc to pt regarding [facility] stay for pneumonia from 08/26 to 08/29 for his status after being discharged and to offer an ED follow-up appointment. Unable to reach pt, left message to call back. * Telephone Encounter - Desi Gutierrez - 09/11/2024 2:26 PM EDT Tc from pt to report was admitted at the [facility] 3 days ago. Diagnosis: pneumonia. documented in this encounter Plan of Treatment Not on file documented as of this encounter Visit Diagnoses Not on filedocumented in this encounter Additional Health Concerns Assessment Noted Time PHQ-9 Depression Total Score: 6 07/25/19 25 3:22 PM EDT documented as of this encounter Care Teams Book Trimmer Relationship Specialty Start Date End Date Sesar Pereyra MD [address] [place] [address] PCP - General Internal Medicine 03/01/21 [facility] 03/22/24 documented as of this encounter
--- OUTSIDE RECORDS SUMMARY | 2024-09-16 09:44 | XMS_ITS | Encounter Summary ---
Author Organization [employer] Address 75 [facility] 7t [place] [address] Care Team Providers Care Refrigeration Service Technician Name Role Phone Sesar Pereyra MD Primary Care Provider +1- [phone] Reason for Visit * Reason Onset Date Comments Referral 01/02/2024 Encounter Details Date Type Department Care Team (Late st Contact Info) Description 01/02/2024 Telephone [facility] [address] [place] [address] Sesar Pereyra MD [address] [place], [place] [phone] Referral Social History Tobacco Use Types Packs/Day [...] - 01/02/2024 10:48 AM EDT Tc from [place] the patients EC requesting a referral for a gerontologist and would like to be sent to at [facility] in [place] documented in this encounter Plan of Treatment Not on file documented as of this encounter Visit Diagnoses Not on filedocumented in this encounter Additional Health Concerns Assessment Noted Time PHQ-9 Depression Total Score: 16 024 10:59 AM EDT documented as of this encounter Care Teams Refrigeration Service Technician Relationship Specialty Start Date End Date Sesar Pereyra MD [address] [place] [address] PCP - General Internal Medicine 03/01/21 [facility] 03/[facility] documented as of this encounter
--- OUTSIDE RECORDS SUMMARY | 2024-09-16 09:44 | XMS_ITS | Encounter Summary ---
Author Organization [facility] Address [address] [place] [address] Care Team Providers Care Inspector Watch Assembly Name Role Phone Yolande Nicholas DO Primary Care Pro vider Unavailable Anuj Priest DO Primary Care Provider Judy álvarez [facility], Pcp Primary Care Provider Unavailabl e Encounter Details Date Type Department Care Team Description 05/04/2020 Health Care Facility Administrator Report Medical Records [address] [place] [address] Dhruv Garcia MD Social History Tobacco Use [...] filedocumented in this encounter Care Teams Inspector Watch Assembly Relationship Specialty Start Date End Date Yolande Nicholas DO PCP - General Internal Medicine 12/03/18 10/08/20 Anuj Priest DO PCP - General Internal Medicine 10/09/20 Jj, Pcp PCP - General Internal Medicine 06/17/21 documented as of this encounter
--- OUTSIDE RECORDS SUMMARY | 2024-09-16 09:44 | XMS_ITS | Encounter Summary ---
Author Organization [facility] Address [address] [place] [address] Care Team Providers Care Photo Colorer Name Role Phone Yolande Nicholas DO Primary Care Pro vider Unavailable Anuj Priest DO Primary Care Provider [facility], Pcp Primary Care Provider [facility] Encounter Details Date Type Department Care Team Description 03/03/2020 Pt. Non Urgent Medic al Question Adult Medicine [address] [address] Yolande Nicholas DO Social History Tobacco Use [...] at 8:00 AM, Dr Argueta/Vascular Surgeon @ [facility] has ordered a US LOWER EXTREMITY [...] filedocumented in this encounter Care Teams Photo Colorer Relationship Specialty Start Date End Date Yolande Nicholas DO PCP - General Internal Medicine 12/03/18 10/08/20 Anuj Priest DO PCP - General Internal Medicine 10/09/[address] [place] [address], Pcp PCP - General Internal Medicine 06/17/21 documented as of this encounter
--- OUTSIDE RECORDS SUMMARY | 2024-09-16 09:44 | XMS_ITS | Encounter Summary ---
Author Organization [employer] Address [address] [facility] 7t [place] [address] Care Team Providers Care Presentation Specialist Name Role Phone Sesar Pereyra MD Primary Care Provider +1- [phone] Reason for Visit * Reason Onset Date Comments Med Refill 08/08/2024 Encounter Details Date Type Department Care Team (Late st Contact Info) Description 08/08/2024 Telephone [facility] [address] [place] [address] Sesar Pereyra MD [address] [place] [address] Med Refill Social History Tobacco Use Types [...] 0.5 MG tablet To be sent to: [facility] - [facility] [place] - [address] [place] [address] STEET documented in this encounter Plan of Treatment Not on file documented as of this encounter Visit Diagnoses Not on filedocumented in this encounter Additional Health Concerns Assessment Noted Time PHQ-9 Depression Total Score: 6 07/25/19 25 3:22 PM EDT documented as of this encounter Care Teams Presentation Specialist Relationship Specialty Start Date End Date Sesar Pereyra MD [address] [place] [address] [place] [address] PCP - General Internal Medicine 03/01/21 [facility] 03/22/24 documented as of this encounter
--- OUTSIDE RECORDS SUMMARY | 2024-09-16 09:44 | XMS_ITS | Encounter Summary ---
Author Organization [facility] Address [address] [place] [address] Care Team Providers Care Cco Name Role Phone Annalee Jones MD Primary Care Provider Un available Yolande Nicholas DO Primary Care Pro vider Unavailable Anuj Priest DO Primary Care Provider Judy [facility], Pcp Primary Care Provider Unavailabl e Reason for Visit * Reason Onset Date Comments Foreman Or Supervisor And Operator Feedback 08/27/2018 ortho Encounter Details Date Type Department Care Team Description 08/27/2018 Telephone Adult Medicine [address] [address] [facility] [address] [place] [address] Foreman Or Supervisor And Operator Feedback (ortho) Social History Tobacco Use Types [...] a disc of the MRI [facility] Forward Air Controller/Air Officer [facility] Department documented in this encounter Plan of Treatment Not on file documented as of this encounter Visit Diagnoses Not on filedocumented in this encounter Care Teams Cco Relationship Specialty Start Date End Date Annalee Jones MD PCP - General Internal Medicine 01/06/17 9 Yolande Nicholas DO PCP - General Internal Medicine 12/03/18 10/08/20 Anuj Priest DO PCP - General Internal Medicine 10/09/20 2 [facility], Pcp PCP - General Internal Medicine 06/17/21 documented as of this encounter
--- OUTSIDE RECORDS SUMMARY | 2024-09-16 09:44 | XMS_ITS | Encounter Summary ---
Author Organization [employer] Address [address] [facility] 7t [place] [address] Care Team Providers Care Front End Ui Developer Name Role Phone Sesar Pereyra MD Primary Care Provider +1- [phone] Encounter Details Date Type Department Care Team ([facility] st Contact Info) Description 11/01/2023 Orders Only [facility] MED & PEDS [address] [place], [place] [phone] Sesar Pereyra MD [address] [place] [address] Social History Tobacco Use Types Packs/Day Years [...] documented as of this encounter Care Teams Front End Ui Developer Relationship Specialty Start Date End Date Sesar Pereyra MD [address] [place] [address] PCP - General Internal Medicine 03/01/21 [facility] 03/22/24 documented as of this encounter
--- OUTSIDE RECORDS SUMMARY | 2024-09-16 09:44 | XMS_ITS | Encounter Summary ---
Author Organization [employer] Address [address] [facility] 7 [place] [address] Care Team Providers Care Webmethods Architect Name Role Phone Sesar Pereyra MD Primary Care Provider +1- [phone] Encounter Details Date Type Department Care Team ([facility] st Contact Info) Description 10/13/2022 Orders Only [facility] MED & PEDS [address] [place], [place] [phone] Sesar Pereyra MD [address] [place] [address] Social History Tobacco Use Types Packs/Day Years [...] on filedocumented in this encounter Care Teams Webmethods Architect Relationship Specialty Start Date End Date Sesar Pereyra MD [address] [place] [address] PCP - General Internal Medicine 03/01/21 [facility] 03/22/24 documented as of this encounter
--- OUTSIDE RECORDS SUMMARY | 2024-09-16 09:44 | XMS_ITS | Encounter Summary ---
Author Organization [employer] Address [address] [facility] 7t [place] [address] Care Team Providers Care Manpower Development Specialist Manager Name Role Phone Sesar Pereyra MD Primary Care Provider +1- [phone] Reason for Visit * Reason Onset Date Comments fyi 09/02/2024 Encounter Details Date Type Department Care Team (Late st Contact Info) Description 09/02/2024 Telephone [facility] [address] [place] [address] Sesar Pereyra MD [address] [place] [address] fyi Social History Tobacco Use Types Packs/Day [...] discharge interacts with [place]. Any questions contact [phone] documented in this encounter Plan of Treatment Not on file documented as of this encounter Visit Diagnoses Not on filedocumented in this encounter Additional Health Concerns Assessment Noted Time PHQ-9 Depression Total Score: 6 07/25/19 25 3:22 PM EDT documented as of this encounter Care Teams Manpower Development Specialist Manager Relationship Specialty Start Date End Date Sesar Pereyra MD [address] [place] [address] PCP - General Internal Medicine 03/01/21 [facility] 03/22/24 documented as of this encounter
--- OUTSIDE RECORDS SUMMARY | 2024-09-16 09:44 | XMS_ITS | Encounter Summary ---
Author Organization [facility] Address [address] [place] [address] Care Team Providers Care Chief Dietitian Name Role Phone Yolande Nicholas DO Primary Care Pro vider Unavailable Anuj Priest DO Primary Care Provider [facility], Pcp Primary Care Provider Unavailabl e Reason for Visit * Reason Onset Date Comments Faxed Order 03/29/2020 Encounter Details Date Type Department Care Team Description 03/29/2020 Telephone Adult [address] [address] Yolande Nicholas DO Faxed Order Social History [...] TO BE SIGN AND FAX BACK TO [phone]. documented in this encounter Plan of Treatment Not on file documented as of this encounter Visit Diagnoses Not on filedocumented in this encounter Care Teams Chief Dietitian Relationship Specialty Start Date End Date Yolande Nicholas DO PCP - General Internal Medicine 12/03/18 10/08/20 Anuj Priest DO PCP - General Internal Medicine 10/09/20 2 [facility], Pcp PCP - General Internal Medicine 06/17/21 documented as of this encounter
--- OUTSIDE RECORDS SUMMARY | 2024-09-16 09:44 | XMS_ITS | Encounter Summary ---
Author Organization [facility] Address [address] [place] [address] Care Team Providers Care Force Adjustment Supervisor Name Role Phone Yolande Nicholas DO Primary Care Pro vider Unavailable Anuj Priest DO Primary Care Provider [facility], Pcp Primary Care Provider Unavailabl e Reason for Visit * Reason Onset Date Comments VNA Call 02/25/2020 Encounter Details Date Type Department Care Team Description 02/25/2020 Telephone Adult Medicine [address] [address] Yolande Nicholas DO VNA Call Social History [...] on filedocumented in this encounter Care Teams Force Adjustment Supervisor Relationship Specialty Start Date End Date Yolande Nicholas DO PCP - General Internal Medicine 12/03/18 10/08/20 Anuj Priest DO PCP - General Internal Medicine 10/09/[address] [place] [address], Pcp PCP - General Internal Medicine 06/17/21 documented as of this encounter
--- OUTSIDE RECORDS SUMMARY | 2024-09-16 09:44 | XMS_ITS | Encounter Summary ---
Author Organization [facility] Address [address] [place] [address] Care Team Providers Care Ham Facer Name Role Phone Yolande Nicholas DO Primary Care Pro vider Unavailable Anuj Priest DO Primary Care Provider Judy Gardner, Pcp Primary Care Provider Unavailabl e Encounter Details Date Type Department Care Team Description 04/13/2020 Product Safety Specialist Report Medical Records [address] [place] [address] Abstract, Provider Social History Tobacco Use Types [...] on filedocumented in this encounter Care Teams Ham Facer Relationship Specialty Start Date End Date Yolande Nicholas DO PCP - General Internal Medicine 12/03/18 10/08/20 Anuj Priest DO PCP - General Internal Medicine 10/09/20 2 Jj, Pcp PCP - General Internal Medicine 06/17/21 documented as of this encounter
--- OUTSIDE RECORDS SUMMARY | 2024-09-16 09:44 | XMS_ITS | Encounter Summary ---
Author [facility] Address [address] [place] [address] Care Team Providers Care Paper Twister Tender Name Role Phone Yolande Nicholas DO Primary Care Pro vider Unavailable Anuj Priest DO Primary Care Provider [facility], Pcp Primary Care Provider [facility] Encounter Details Date Type Department Care Team Description 03/18/2020 Orders Only Adult Medicine [address] [address] Yolande Nicholas DO Social History Tobacco Use [...] on filedocumented in this encounter Care Teams Paper Twister Tender Relationship Specialty Start Date End Date Yolande Nicholas DO PCP - General Internal Medicine 12/03/18 10/08/20 Anuj Priest DO PCP - General Internal Medicine 10/09/20 2 2 [facility], Pcp PCP - General Internal Medicine 06/17/21 documented as of this encounter
--- OUTSIDE RECORDS SUMMARY | 2024-09-16 09:44 | XMS_ITS | Encounter Summary ---
Author Organization [facility] Address [address] [place] [address] Care Team Providers Care Assistant Golf Coach Name Role Phone Yolande Nicholas DO Primary Care Pro vider Unavailable Anuj Priest DO Primary Care Provider [facility], Pcp Primary Care Provider Unavailabl e Reason for Visit * Reason Onset Date Comments Faxed Order 06/17/2020 Encounter Details Date Type Department Care Team Description 06/17/2020 Telephone Adult [address] [address] Yolande Nicholas DO Faxed Order Social History [...] - 06/17/2020 8:44 AM EST Orders from [facility] to be signed and faxed back to [phone] . documented in this encounter Plan of Treatment Not on file documented as of this encounter Visit Diagnoses Not on filedocumented in this encounter Care Teams Assistant Golf Coach Relationship Specialty Start Date End Date Yolande Nicholas DO PCP - General Internal Medicine 12/03/18 10/08/20 Anuj Priest DO PCP - General Internal Medicine 10/09/20 2 [facility], Pcp PCP - General Internal Medicine 06/17/21 documented as of this encounter
--- OUTSIDE RECORDS SUMMARY | 2024-09-16 09:44 | XMS_ITS | Encounter Summary ---
Author [facility] Address [address] [place] [address] Care Team Providers Care Vest Presser Name Role Phone Annalee Jones MD Primary Care Provider Un available Yolande Nicholas DO Primary Care Pro vider Unavailable Anuj Priest DO Primary Care Provider Judy vailable [facility], Pcp Primary Care Provider Unavailabl e Encounter Details Date Type Department Care Team Description 04/24/2018 Hospital Medical Records [address] [place] [address] Thomas Moise MD Social History Tobacco Use [...] on filedocumented in this encounter Care Teams Vest Presser Relationship Specialty Start Date End Date Annalee Jones MD PCP - General Internal Medicine 01/06/17 9 Yolande Nicholas DO PCP - General Internal Medicine 12/03/18 10/08/20 Anuj rPiest DO PCP - General Internal Medicine 10/09/20 2 Jj, Pcp PCP - General Internal Medicine 06/17/21 documented as of this encounter
--- OUTSIDE RECORDS SUMMARY | 2024-09-16 09:44 | XMS_ITS | Encounter Summary ---
Author Organization [facility] Address [address] [place] [address] Care Team Providers Care Sales Operations Name Role Phone Annalee Jones MD Primary Care Provider Un available Yolande Nicholas DO Primary Care Pro vider Unavailable Anuj Priest DO Primary Care Provider Judy [facility], Pcp Primary Care Provider Unavailabl e Encounter Details Date Type Department Care Team Description 06/13/2018 Refill Adult Medicine [address] [address] Annalee Jones MD Social History Tobacco Use [...] MG tablet [Annalee Jones MD] Preferred pharmacy: [facility] [address] [place] AT Comment: you have nothing [...] filedocumented in this encounter Care Teams Sales Operations Relationship Specialty Start Date End Date Annalee Jones MD PCP - General Internal Medicine 01/06/17 9 Yolande Nicholas DO PCP - General Internal Medicine 12/03/18 10/08/20 Anuj Priset DO PCP - General Internal Medicine 10/09/20 2 [facility], Pcp PCP - General Internal Medicine 06/17/21 documented as of this encounter
--- OUTSIDE RECORDS SUMMARY | 2024-09-16 09:44 | XMS_ITS | Encounter Summary ---
Author Organization [facility] Address [address] [place] [address] Care Team Providers Care Buckle And Button Maker Name Role Phone Annalee Jones MD Primary Care Provider Un available Yolande Nicholas DO Primary Care Pro vider Unavailable Anuj Priest DO Primary Care Provider Judy vailable Jj, Pcp Primary Care Provider Unavailabl e Encounter Details Date Type Department Care Team Description 08/01/2018 Transfer Records Medical Records [address] [place] [id number] Abstract, Provider Social History Tobacco Use Types [...] on filedocumented in this encounter Care Teams Buckle And Button Maker Relationship Specialty Start Date End Date Annalee Jones MD PCP - General Internal Medicine 01/06/17 9 Yolande Nicholas DO PCP - General Internal Medicine 12/03/18 10/08/20 Anuj Priest DO PCP - General Internal Medicine 10/09/20 2 Jj, Pcp PCP - General Internal Medicine 06/17/21 documented as of this encounter
--- OUTSIDE RECORDS SUMMARY | 2024-09-16 09:44 | XMS_ITS | Encounter Summary ---
Author Organization [facility] Address [address] [place] [address] Care Team Providers Care Cartoon Designer Name Role Phone Yolande Nicholas DO Primary Care Pro vider Unavailable Anuj Priest DO Primary Care Provider [facility], Pcp Primary Care Provider [facility] Encounter Details Date Type Department Care Team Description 03/30/2020 Pt. Non Urgent Medic al Question Adult Medicine [address] [address] Yolande Nicholas DO Social History Tobacco Use [...] Subject: PT for Arun Nettles Madison Walters, [facility] has recommended that Arun receive P.T. [facility]AS[facility]. However, the [facility] has no openings until May. I would like to have Arun attend the Cardiac Rehab P.T. program at [facility]. His muscles are atrophying and he just shuffles when he walks. I have heard very good reports from friends about the [facility] Cardiac Rehab. program and would like Arun to be referred there as soon as possibleso he can begin work on strengthening his leg muscles. Arun is very eager to get started...a good attitude finally! Thank you, Ame documented in this encounter Plan of Treatment Not on file documented as of this encounter Visit Diagnoses Not on filedocumented in this encounter Care Teams Cartoon Designer Relationship Specialty Start Date End Date Yolande Nicholas DO PCP - General Internal Medicine 12/03/18 10/08/20 Anuj Priest DO PCP - General Internal Medicine 10/09/[address] [place] [address], Pcp PCP - General Internal Medicine 06/17/21 documented as of this encounter
--- OUTSIDE RECORDS SUMMARY | 2024-09-16 09:44 | XMS_ITS | Encounter Summary ---
Author Organization [employer] Address [address] [facility] [address] [place] [address] Care Team Providers Care Product Demonstrator Name Role Phone Sesar Pereyra MD Primary Care Provider [phone] Reason for Visit * Reason Comments Med Refill Encounter Details Date Type Department Care Team ([facility] st Contact Info) Description 10/30/2023 Refill [facility] [address] [place], [place] [phone] Sesar Pereyra MD [address] [place], [place] [phone] PVD (peripheral vascular disease) (CMS/HCC); Longstanding persistent [...] documented as of this encounter Care Teams Product Demonstrator Relationship Specialty Start Date End Date Sesar Pereyra MD [address] [place] [id number] PCP - General Internal Medicine 03/01/21 [facility] 03/22/24 documented as of this encounter
--- OUTSIDE RECORDS SUMMARY | 2024-09-16 09:45 | XMS_ITS | Encounter Summary ---
Author Organization [employer] [facility] Address [address] [place] [address] Care Team Providers Care Bank Note Designer Name Role Phone Ghassan Burciaga MD Primary Care Provider Unavail able Pierre Arevalo MD Primary Care Provider Judy vailable Gerson Dawson MD Primary Care Provider Unavail able [facility], Pcp Primary Care Provider Unavailabl e Coleman Mccarthy MD Primary Care Provider Unavaila Ayo Demarco MD Primary Care Provider [phone] Annalee Jones MD Primary Care Provider Un available Pascual Nicholasabela DO Primary Care Pro vider Unavailable Anuj Priest DO Primary Care Provider Judy vailable [facility], Pcp Primary Care Provider Unavailabl e Encounter Details Date Type Department Care Team Description 09/17/2010 [facility] Report Medical Records [address] [place] [id number] Jayshree Meade Social History Tobacco Use Types [...] on filedocumented in this encounter Care Teams Bank Note Designer Relationship Specialty Start Date End Date Ghassan Burciaga MD PCP - General 07/24/00 05/06/13 Pierre Arevalo MD PCP - General Internal Medicine 05/07/13 4 Gerson Dawson MD PCP - General Internal Medicine 01/30/14 03/20/14 [facility], Pcp PCP - General Internal Medicine 03/21/14 05/06/14 Coleman Mccarthy MD PCP - General Internal Medicine 05/07/14 07/18/16 Ayo Carpio MD [address] [place] [address] PCP - General Internal Medicine 07/19/16 01/05/17 Annalee Jones MD [address] [place] [address] PCP - General Internal Medicine 01/06/17 12/02/18 Yolande Nicholas DO [address] [place] [address] PCP - General Internal Medicine 12/03/18 10/08/20 Anuj Priest DO [address] [place] [address] PCP - General Internal Medicine 10/09/20 06/16/21 [facility], Pcp PCP - General Internal Medicine 06/17/21 documented as of this encounter
--- OUTSIDE RECORDS SUMMARY | 2024-09-16 09:45 | XMS_ITS | Encounter Summary ---
Author Organization [employer] Address [address] [facility] [address] [place] [address] Care Team Providers Care Pocket Cutter Name Role Phone Sesar Pereyra MD Primary Care Provider [phone] Reason for Visit * Reason Onset Date Comments fyi 05/28/2024 Encounter Details Date Type Department Care Team (Late st Contact Info) Description 05/28/2024 Telephone [facility] [address] [place] [address] Sesar Pereyra MD [address] [place], [place] [phone] fyi Social History Tobacco Use Types Packs/Day [...] AM EST [facility] [employer] Care informing pt verbalized to [...] documented as of this encounter Care Teams Pocket Cutter Relationship Specialty Start Date End Date Sesar Pereyra MD [address] [place] [address] PCP - General Internal Medicine 03/01/21 [facility] 03/22/24 documented as of this encounter
--- OUTSIDE RECORDS SUMMARY | 2024-09-16 09:45 | XMS_ITS | Clinical Summary ---
Author Organization Unknown Care Team Providers Care Dealer Accounts Investigator Name Role Phone MARCO RAMIREZ, POOJA Unavailable Unavaileddie GAVIN RN, DAGOBERTO Unavailable Unavailab abraham JIMENEZ PT, COURTNEY Unavailable Unavailable SHERYL MAPPING ANALYST, JANETT Unavailable Unavailable Payers Payer Name Policy Type Policy Number Effective Date Expira tion Date [facility] [id number] Problems Condition Name Condition Details Condition Category Status Onset Date Resolution Date Last Treatment Date Treating Clinician Comments PNEUMONIA, UNSPECIFIED ORGANISM Active 09-02 00:00: 00 CHR OBSTRUCTIVE PULMON DISEASE WITH (ACUTE) LOWER RESP INFCT Active 09-02 00:00: 00 HYP HRT AND CHR KDNY DIS W HRT FAIL AND STG 1-4/UNSP CHR KDNY Active 08-21 00:00: 00 ACUTE ON CHRONIC SYSTOLIC (CONGESTIVE) HEART FAILURE Active 08-22 00:00: 00 CHRONIC KIDNEY DISEASE, STAGE 3 UNSPECIFIED Active 08-21 00:00: 00 FX L SHOULDER GIRDLE, PART UNSP, SUBS FOR FX W ROUTN HEAL Active 07-11 00:00: 00 PAROXYSMAL ATRIAL FIBRILLATION Active 05-01 00:00: 00 PERIPHERAL VASCULAR DISEASE, UNSPECIFIED Active 05-01 00:00: 00 ATHSCL HEART DISEASE OF [place] CORONARY ARTERY W/O ANG PCTRS Active 05-01 00:00: 00 POLYNEUROPAT HY, UNSPECIFIED Active 05-01 00:00: 00 HYPERSOMNIA, UNSPECIFIED Active 05-01 00:00: 00 BENIGN PROSTATIC HYPERPLASIA WITHOUT LOWER URINRY TRACT SYMP Active 05-01 00:00: 00 ANXIETY DISORDER, UNSPECIFIED Active 05-01 00:00: 00 DEPRESSION, UNSPECIFIED Active 05-01 00:00: 00 HYPERLIPIDEM IA, UNSPECIFIED Active 05-01 00:00: 00 DVTRCLI OF INTEST, PART UNSP, 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 05-01 00:00: 00 ALCOHOL ABUSE, UNCOMPLICATE D Active 05-01 00:00: 00 Obesity, class 1 Active 08-21 00:00: 00 BODY MASS INDEX [BMI] 32.0-32.9, ADULT Active 08-24 00:00: 00 PERSONAL HISTORY OF COVID-19 Active 05-01 00:00: 00 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 Active 05-01 00:00: 00 PERSONAL HISTORY OF OTHER MALIGNANT NEOPLASM OF SKIN Active 05-01 00:00: 00 RESIDENTIAL (CURRENT) USE OF ANTICOAGULAN TS Active 08-23 00:00: 00 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 OF NON-STEROIDA L NON-INFLAM (NSAID) Active 08-23 00:00: 00 Allergies, Adverse Reactions, Alerts Allergy [...] 2023-05 00:00: 00 05-16 23:59 :00 No [id number] PAIN 15 mg EVERY 6 HOURS NEEDED 15 mg EVERY 6 HOURS NEEDED (route: oral) Med Classific ation: Analgesic , Anti-infl ammatory or Antipyret ic clonazepam 0.5 mg tablet 2023-05 00:00: 00 08-24 00:00 :00 No [id number] ANXIETY 0.5 mg 2 TIMES DAILY 0.5 mg 2 TIMES DAILY (route: oral) Med Classific ation: Central Nervous System Agents lisinopril 40 mg tablet 2023-05 00:00: 00 03-21 23:59 :00 No [id number] CAD 40 mg DAILY 40 mg DAILY (route: oral) Med Classific ation: Cardiovas cular Therapy Agents atorvastati n 80 mg tablet 2023-05 00:00: 00 08-24 00:00 :00 No [id number] HYPERTENSIO N 80 mg DAILY 80 mg DAILY (route: oral) Med Classific ation: Cardiovas cular Therapy Agents cilostazol 50 mg tablet 2023-05 00:00: 00 08-24 00:00 :00 No [id number] HYPERTENSIO N 50 mg 2 TIMES DAILY 50 mg 2 TIMES DAILY (route: oral) Med Classific ation: Hematolog ical Agents clopidogrel 75 mg tablet 2023-05 00:00: 00 03-21 23:59 :00 No [id number] CORONARY ARTERY DISEASE 75 mg DAILY 75 mg DAILY (route: oral) Med Classific ation: Hematolog ical Agents Eliquis 5 mg tablet 2023-05 00:00: 00 08-24 00:00 :00 No [id number] ANTI ARRHYTHMIC 5 mg 2 TIMES DAILY 5 mg 2 TIMES DAILY (route: oral) Med Classific ation: Hematolog ical Agents furosemide 40 mg tablet 2023-05 00:00: 00 03-21 23:59 :00 No [id number] BPH 40 mg DAILY 40 mg DAILY (route: oral) Alternate Route: INTRA-MUS CULAR. Med Classific ation: Cardiovas cular Therapy Agents metoprolol tartrate 50 mg tablet 2023-05 00:00: 00 03-22 23:59 :00 No [id number] CAD 50 mg DAILY 50 mg DAILY (route: oral) Med Classific ation: Cardiovas cular Therapy Agents quetiapine 25 mg tablet 2023-05 00:00: 00 08-24 00:00 :00 No [id number] MOOD STABILIZER 25 mg 2 TIMES DAILY 25 mg 2 TIMES DAILY (route: oral) Med Classific ation: Central Nervous System Agents sertraline 50 mg tablet 2023-05 00:00: 00 08-24 00:00 :00 No [id number] MOOD STABILIZER 50 mg DAILY 50 mg DAILY (route: oral) Med Classific ation: Central Nervous System Agents tamsulosin 0.4 mg capsule 2023-05 00:00: 00 08-24 00:00 :00 No [id number] BPH 0.4 mg DAILY 0.4 mg DAILY (route: oral) Med Classific ation: Genitouri nary Therapy docusate sodium 100 mg tablet 2023-05 00:00: 00 08-24 00:00 :00 No [id number] CONSTIPATIO N 100 mg DAILY 100 mg DAILY (route: oral) Med Classific ation: Gastroint estinal Therapy Agents gabapentin 100 mg capsule 2023-05 00:00: 00 08-24 00:00 :00 No [id number] PAIN 1-3 capsule BEDTIME 1-3 capsule BEDTIME (route: oral) Med Classific ation: Central Nervous System Agents metoprolol tartrate 25 mg tablet 2023-05 00:00: 00 03-27 16:09 :43.1 53 No [id number] HYPERTENSIO N 25 mg 2 TIMES DAILY 25 mg 2 TIMES DAILY (route: oral) Med Classific ation: Cardiovas cular Therapy Agents Multaq 400 mg tablet 2023-05 00:00: 00 08-24 00:00 :00 No [id number] ANTIARRHYTH MICHAEL 400 mg 2 TIMES DAILY 400 mg 2 TIMES DAILY (route: oral) Med Classific ation: Cardiovas cular Therapy Agents furosemide 40 mg tablet 2023-05 00:00: 00 08-24 00:00 :00 No [id number] edema 1 tablet DAILY 1 tablet DAILY (route: oral) Med Classific ation: Cardiovas cular Therapy Agents dextroamphe tamine-amph etamine 7.5 mg tablet 2023-05 00:00: 00 08-24 00:00 :00 No [id number] attention 1 tablet DAILY 1 tablet DAILY (route: oral) Med Classific ation: Central Nervous System Agents metoprolol tartrate 25 mg tablet 2023-05 00:00: 00 06-27 23:59 :00 No [id number] heart rate 0.5 tablet 2 TIMES DAILY 0.5 tablet 2 TIMES DAILY (route: oral) Med Classific ation: Cardiovas cular Therapy Agents cephalexin 500 mg capsule 2023-05 00:00: 00 04-10 23:59 :00 No [id number] CELLULITIS LLL 500 mg 4 TIMES DAILY 500 mg 4 TIMES DAILY (route: oral) Med Classific ation: Anti-Infe ctive Agents hydralazine 25 mg tablet 2023-05 00:00: 00 08-24 00:00 :00 No [id number] HTN 25 mg 2 TIMES DAILY 25 mg 2 TIMES DAILY (route: oral) Med Classific ation: Cardiovas cular Therapy Agents melatonin 3 mg tablet 06-27 00:00: 00 08-24 00:00 :00 No [id number] INSOMNIA 1 tablet BEDTIME 1 tablet BEDTIME (route: oral) Med Classific ation: Central Nervous System Agents metoprolol tartrate 25 mg tablet 06-27 00:00: 00 08-24 00:00 :00 No [id number] HTN 1 tablet DAILY 1 tablet DAILY (route: oral) Med Classific ation: Cardiovas cular Therapy Agents oxycodone 5 mg tablet 06-27 00:00: 00 08-24 00:00 :00 No [id number] PAIN 1 tablet EVERY 8 HOURS 1 tablet EVERY 8 HOURS (route: oral) Med Classific ation: Analgesic , Anti-infl ammatory or Antipyret ic polyethylen e glycol 3350 17 gram/dose oral powder 06-27 00:00: 00 08-24 00:00 :00 No [id number] CONSTIPATIO N 17 gram BEDTIME 17 gram BEDTIME (route: oral) Med Classific ation: Gastroint estinal Therapy Agents Tylenol 8 Hour 650 mg tablet,exte nded release 06-27 00:00: 00 08-24 00:00 :00 No [id number] PAIN/FEVER 1 tablet EVERY 6 HOURS 1 tablet EVERY 6 HOURS (route: oral) Med Classific ation: Analgesic , Anti-infl ammatory or Antipyret ic albuterol sulfate HFA 90 mcg/actuati on aerosol inhaler 16 00:00: 00 08-24 00:00 :00 No [id number] SHORTNESS OF BREATH 2 puff EVERY 4 HOURS 2 puff EVERY 4 HOURS (route: inhalation ) Med Classific ation: Respirato ry Therapy Agents azithromyci n 500 mg tablet 16 00:00: 00 08-24 00:00 :00 No [id number] TREATS PNEUMONIA 500 mg DAILY 500 mg DAILY (route: oral) Med Classific ation: Anti-Infe ctive Agents cefuroxime axetil 500 mg tablet 07-14 00:00: 00 08-24 00:00 :00 No [id number] ANTIBIOTIC TREATS PNEUMONIA 500 mg DAILY 500 mg DAILY (route: oral) Med Classific ation: Anti-Infe ctive Agents celecoxib 200 mg capsule 08-01 00:00: 00 08-24 00:00 :00 No [id number] PAIN 1 capsule DAILY 1 capsule DAILY (route: oral) Med Classific ation: Analgesic , Anti-infl ammatory or Antipyret ic albuterol sulfate HFA 90 mcg/actuati on aerosol inhaler 08-24 00:00: 00 Yes [id number] SHORTNESS OF BREATH 2 puff EVERY 4 HOURS 2 puff EVERY 4 HOURS (route: inhalation ) Med Classific ation: Respirato ry Therapy Agents aspirin 81 mg tablet,kulwinder yed release 08-24 00:00: 00 Yes [id number] CORONARY ARTERY DISEASE 1 tablet DAILY 1 tablet DAILY (route: oral) Med Classific ation: Hematolog ical Agents atorvastati n 80 mg tablet 08-24 00:00: 00 Yes [id number] HIGH LIPIDS 1 tablet BEDTIME 1 tablet BEDTIME (route: oral) Med Classific ation: Cardiovas cular Therapy Agents azithromyci n 500 mg tablet 08-24 00:00: 00 08-27 23:59 :00 No [id number] PNEUMONIA 1 tablet DAILY 1 tablet DAILY (route: oral) Med Classific ation: Anti-Infe ctive Agents cefuroxime axetil 500 mg tablet 08-24 00:00: 00 08-29 23:59 :00 No [id number] PNEUMONIA 1 tablet 2 TIMES DAILY 1 tablet 2 TIMES DAILY (route: oral) Med Classific ation: Anti-Infe ctive Agents celecoxib 200 mg capsule 08-24 00:00: 00 Yes [id number] SPASMS 1 capsule DAILY 1 capsule DAILY (route: oral) Med Classific ation: Analgesic , Anti-infl ammatory or Antipyret ic cilostazol 50 mg tablet 08-24 00:00: 00 Yes [id number] INTERMITTEN T CLAUDICATIO N- LEG CRAMPS 1 tablet 2 TIMES DAILY 1 tablet 2 TIMES DAILY (route: oral) Med Classific ation: Hematolog ical Agents clonazepam 0.5 mg tablet 08-24 00:00: 00 Yes [id number] MOOD DISORDER/AN XIETY 1 tablet 2 TIMES DAILY 1 tablet 2 TIMES DAILY (route: oral) Med Classific ation: Central Nervous System Agents Colace 100 mg capsule 08-24 00:00: 00 Yes [id number] CONSTIPATIO N 1 capsule DAILY 1 capsule DAILY (route: oral) Med Classific ation: Gastroint estinal Therapy Agents dextroamphe tamine sulfate 7.5 mg tablet 08-24 00:00: 00 Yes [id number] ADHD 1 tablet DAILY 1 tablet DAILY (route: oral) Med Classific ation: Central Nervous System Agents Eliquis 5 mg tablet 08-24 00:00: 00 Yes [id number] IRREGULAR HEART BEAT 1 tablet 2 TIMES DAILY 1 tablet 2 TIMES DAILY (route: oral) Med Classific ation: Hematolog ical Agents furosemide 40 mg tablet 08-24 00:00: 00 Yes [id number] HEART FAILURE 1 tablet DAILY 1 tablet DAILY (route: oral) Med Classific ation: Cardiovas cular Therapy Agents gabapentin 100 mg capsule 08-24 00:00: 00 Yes [id number] 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 1 capsule BEDTIME 1 capsule BEDTIME (route: oral) Med Classific ation: Central Nervous System Agents metoprolol tartrate 25 mg tablet 08-24 00:00: 00 Yes [id number] HIGH BLOOD PRESSURE/IR REGULAR HEART BEAT 0.5 tablet 2 TIMES DAILY 0.5 tablet 2 TIMES DAILY (route: oral) Med Classific ation: Cardiovas cular Therapy Agents Miralax 17 gram/dose oral powder 08-24 00:00: 00 Yes [id number] CONSTIPATIO N 17 gram BEDTIME 17 gram BEDTIME (route: oral) Med Classific ation: Gastroint estinal Therapy Agents Multaq 400 mg tablet 08-24 00:00: 00 Yes [id number] IRREGULAR HEART BEAT 1 tablet 2 TIMES DAILY 1 tablet 2 TIMES DAILY (route: oral) Med Classific ation: Cardiovas cular Therapy Agents oxycodone 5 mg tablet 08-24 00:00: 00 08-31 23:59 :00 No [id number] SEVERE PAIN LEFT SHOULDER 1 tablet EVERY 8 HOURS 1 tablet EVERY 8 HOURS (route: oral) Med Classific ation: Analgesic , Anti-infl ammatory or Antipyret ic quetiapine 25 mg tablet 08-24 00:00: 00 Yes [id number] MOOD DISORDER 1 tablet 2 TIMES DAILY 1 tablet 2 TIMES DAILY (route: oral) Med Classific ation: Central Nervous System Agents sertraline 50 mg tablet 08-24 00:00: 00 Yes [id number] DEPRESSION 1 tablet DAILY 1 tablet DAILY (route: oral) Med Classific ation: Central Nervous System Agents tamsulosin 0.4 mg capsule 08-24 00:00: 00 Yes [id number] ENLARGED PROSTATE 1 capsule BEDTIME 1 capsule BEDTIME (route: oral) Med Classific ation: Genitouri nary Therapy amoxicillin 875 mg-potassiu m clavulanate 125 mg tablet 08-30 00:00: 00 09-06 23:59 :00 No [id number] PNEUMONIA 1 tablet 2 TIMES DAILY 1 tablet 2 TIMES DAILY (route: oral) Med Classific ation: Anti-Infe ctive Agents doxycycline hyclate 100 mg capsule 08-30 00:00: 00 09-06 23:59 :00 No [id number] PNEUMONIA 1 capsule 2 TIMES DAILY 1 capsule 2 TIMES DAILY (route: oral) Med Classific ation: Anti-Infe ctive Agents Vital Signs Vital Name Observation Time Observation Value Commen ts Temperature 2024-09-06 09:05:00.000 98.2 [degF] Temperature 2024-09-05 09:33:00.000 98.3 [degF] Temperature 2024-09-02 09:47:00.000 98 [degF] Temperature 2024-08-26 09:30:00.000 99.7 [degF] Temperature 2024-08-24 16:36:00.000 98.5 [degF] BMI (%) 2024-09-02 09:27:24.000 32 kg/m2 BMI (%) 2024-08-24 16:36:00.000 32 kg/m2 Height 2024-09-02 09:27:18.000 72 [in_us] Height 2024-08-24 16:36:00.000 72 [in_us] Pulse 2024-09-06 09:05:00.000 65 /min Pulse 2024-09-05 09:33:00.000 65 /min Pulse 2024-09-02 09:47:00.000 59 /min Pulse 2024-08-26 09:30:00.000 89 /min Pulse 2024-08-24 16:36:00.000 72 /min O2 Saturation (%) 2024-09-06 09:05:00.000 92 % O2 Saturation (%) 2024-09-05 09:46:00.000 94 % O2 Saturation (%) 2024-09-05 09:33:00.000 92 % O2 Saturation (%) 2024-09-02 09:47:00.000 95 % O2 Saturation (%) 2024-08-26 09:30:00.000 95 % O2 Saturation (%) 2024-08-24 16:36:00.000 97 % Respirations 2024-09-06 09:05:00.000 20 /min Respirations 2024-09-05 09:33:00.000 20 /min Respirations 2024-09-02 09:47:00.000 20 /min Respirations 2024-08-26 09:30:00.000 18 /min Respirations 2024-08-24 16:36:00.000 18 /min Weight (lbs) 2024-09-06 09:15:00.000 229.6 [lb_av] Weight (lbs) 2024-09-02 09:27:24.000 236 [lb_av] Weight (lbs) 2024-08-26 09:30:00.000 237.8 [lb_av] Weight (lbs) 2024-08-24 16:36:00.000 237 [lb_av] Systolic Blood Pressure 2024-09-06 09:05:00.000 120 mm [Hg] Systolic Blood Pressure 2024-09-05 09:33:00.000 115 mm [Hg] Systolic Blood Pressure 2024-09-02 09:47:00.000 120 mm [Hg] Systolic Blood Pressure 2024-08-26 09:30:00.000 142 mm [Hg] Systolic Blood Pressure 2024-08-24 16:36:00.000 150 mm [Hg] Diastolic Blood Pressure 2024-09-06 09:05:00.000 56 mm [Hg] Diastolic Blood Pressure 2024-09-05 09:33:00.000 75 mm [Hg] Diastolic Blood Pressure 2024-09-02 09:47:00.000 60 mm [Hg] Diastolic Blood Pressure 2024-08-26 09:30:00.000 64 mm [Hg] Diastolic Blood Pressure 2024-08-24 16:36:00.000 60 mm [Hg] Plan of Treatment Planned Activity Planned Date Details Comments Future Scheduled Test RN TO OBSE RVE, ASSESS, EVALUATE, AND DEVELOP AN INDIVIDUALIZED PLAN OF CARE. AGENCY MAY ACCEPT ORDERS FROM CONSULTING PHYSICIANS. RN TO OBSERVE AND ASSESS, FACULTY PHYSICIAN/SAT TUTOR TO OBSERVE FOR RISK FOR FALLS AND INSTRUCT IN FALL PREVENTION, HOME SAFETY, MEDICATION MANAGEMENT, INFECTION PREVENTION, AND NUTRITION MANAGEMENT. RN/FACULTY PHYSICIAN/SAT TUTOR NURSE MAY PERFORM O2 SATURATION LEVEL ON ADMISSION AND PRN FOR RN TO ASSESS/FACULTY PHYSICIAN TO OBSERVE PATIENT, WITH NOTIFICATION TO THE PHYSICIAN IF SATURATION IS 90% IN THE ABSENCE OF MORE SPECIFIC PARAMETERS FROM THE PHYSICIAN. AGENCY MAY PERFORM A RESUMPTION OF CARE VISIT FOLLOWING ANY HOSPITAL ADMISSION. RN/FACULTY PHYSICIAN/SAT TUTOR TO MONITOR CO-MORBID CONDITIONS LISTED ON THE PLAN OF CARE AND ANY NEW CONDITIONS THAT PRESENT THEMSELVES DURING THIS EPISODE TO IDENTIFY CHANGES AND INTERVENE TO MINIMIZE COMPLICATIONS. [code = RN TO OBSERVE, ASSESS, EVALUATE, AND DEVELOP AN INDIVIDUALIZED PLAN OF CARE. AGENCY MAY ACCEPT ORDERS FROM CONSULTING PHYSICIANS. RN TO OBSERVE AND ASSESS, FACULTY PHYSICIAN/SAT TUTOR TO OBSERVE FOR RISK FOR FALLS AND INSTRUCT IN FALL PREVENTION, HOME SAFETY, MEDICATION MANAGEMENT, INFECTION PREVENTION, AND NUTRITION MANAGEMENT. RN/FACULTY PHYSICIAN/SAT TUTOR NURSE MAY PERFORM O2 SATURATION LEVEL ON ADMISSION AND PRN FOR RN TO ASSESS/FACULTY PHYSICIAN TO OBSERVE PATIENT, WITH NOTIFICATION TO THE PHYSICIAN IF SATURATION IS 90% IN THE ABSENCE OF MORE SPECIFIC PARAMETERS FROM THE PHYSICIAN. AGENCY MAY PERFORM A RESUMPTION OF CARE VISIT FOLLOWING ANY HOSPITAL ADMISSION. RN/FACULTY PHYSICIAN/SAT TUTOR TO MONITOR CO-MORBID CONDITIONS LISTED ON THE PLAN OF CARE AND ANY NEW CONDITIONS THAT PRESENT THEMSELVES DURING THIS EPISODE TO IDENTIFY CHANGES AND INTERVENE TO MINIMIZE COMPLICATIONS.] Future Scheduled Test MEDICATION MANAGEMENT; RN/FACULTY PHYSICIAN/SAT TUTOR TO REVIEW MEDICATIONS FOR INTERACTIONS, EFFECTIVENESS OF DRUG THERAPY, AND SIGNS/SYMPTOMS OF ADVERSE REACTIONS. MAY INSTRUCT AND REINFORCE MEDICATION TEACHING RELATED TO THE USE OF MEDICATIONS, DOSAGE, FREQUENCY, PURPOSE, SIDE EFFECTS, AND TO REPORT COMPLICATIONS. [code = MEDICATION MANAGEMENT; RN/FACULTY PHYSICIAN/SAT TUTOR TO REVIEW MEDICATIONS FOR INTERACTIONS, EFFECTIVENESS OF DRUG THERAPY, AND SIGNS/SYMPTOMS OF ADVERSE REACTIONS. MAY INSTRUCT AND REINFORCE MEDICATION TEACHING RELATED TO THE USE OF MEDICATIONS, DOSAGE, FREQUENCY, PURPOSE, SIDE EFFECTS, AND TO REPORT COMPLICATIONS.] Future Scheduled Test RISK FOR H OSPITALIZATION; RN TO ASSESS/TEACH, SAT TUTOR/FACULTY PHYSICIAN TO OBSERVE/TEACH PATIENT/CAREGIVER ON RISK FOR HOSPITALIZATION/EMERGENCY ROOM VISITS, TEACH SIGNS AND SYMPTOMS THAT PUT PATIENT AT RISK, WHEN TO NOTIFY NURSE/PHYSICIAN OF COMPLICATIONS/DECLINE, AND WHEN TO CALL 911. [code = RISK FOR HOSPITALIZATION; RN TO ASSESS/TEACH, SAT TUTOR/FACULTY PHYSICIAN TO OBSERVE/TEACH PATIENT/CAREGIVER ON RISK FOR HOSPITALIZATION/EMERGENCY ROOM VISITS, TEACH SIGNS AND SYMPTOMS THAT PUT PATIENT AT RISK, WHEN TO NOTIFY NURSE/PHYSICIAN OF COMPLICATIONS/DECLINE, AND WHEN TO CALL 911.] Future Scheduled Test CARDIOVASC ULAR SYSTEM; RN TO ASSESS/TEACH, FACULTY PHYSICIAN/SAT TUTOR TO OBSERVE/TEACH RELATED TO ALTERED CARDIOVASCULAR STATUS TO MINIMIZE COMPLICATIONS AND REDUCE HOSPITALIZATION. [code = CARDIOVASCULAR SYSTEM; RN TO ASSESS/TEACH, FACULTY PHYSICIAN/SAT TUTOR TO OBSERVE/TEACH RELATED TO ALTERED CARDIOVASCULAR STATUS TO MINIMIZE COMPLICATIONS AND REDUCE HOSPITALIZATION.] Future Scheduled Test HEART FAIL URE; RN TO ASSESS/TEACH, FACULTY PHYSICIAN/SAT TUTOR TO OBSERVE/TEACH CARDIOPULMONARY SYSTEM TO IDENTIFY SIGNS [...] [code = HEART FAILURE; RN TO ASSESS/TEACH, FACULTY PHYSICIAN/SAT TUTOR TO OBSERVE/TEACH CARDIOPULMONARY SYSTEM TO IDENTIFY SIGNS [...] ARRHYTHMIA MANAGEMENT; RN TO ASSESS AND TEACH, FACULTY PHYSICIAN/SAT TUTOR TO OBSERVE AND TEACH WARNING SIGNS AND SYMPTOMS TO AVOID HOSPITALIZATION. [code = ARRHYTHMIA MANAGEMENT; RN TO ASSESS AND TEACH, FACULTY PHYSICIAN/SAT TUTOR TO OBSERVE AND TEACH WARNING SIGNS AND SYMPTOMS TO AVOID HOSPITALIZATION.] Future Scheduled Test SKIN INTEG RITY RN TO ASSESS AND TEACH, FACULTY PHYSICIAN/SAT TUTOR TO OBSERVE AND TEACH INTEGUMENTARY STATUS TO IDENTIFY CHANGES AND INTERVENE TO MINIMIZE COMPLICATIONS. PROVIDE SKILLED TEACHING OF GENERAL WOUND AND SKIN CARE AND PREVENTION RELATED TO ACTUAL ALTERED SKIN INTEGRITY [code = SKIN INTEGRITY RN TO ASSESS AND TEACH, FACULTY PHYSICIAN/SAT TUTOR TO OBSERVE AND TEACH INTEGUMENTARY STATUS TO IDENTIFY CHANGES AND INTERVENE TO MINIMIZE COMPLICATIONS. PROVIDE SKILLED TEACHING OF GENERAL WOUND AND SKIN CARE AND PREVENTION RELATED TO ACTUAL ALTERED SKIN INTEGRITY ] Future Scheduled Test PAIN MANAG EMENT; RN TO ASSESS AND TEACH, SAT TUTOR/FACULTY PHYSICIAN TO OBSERVE AND TEACH AND PROVIDE EDUCATION ON PAIN MANAGEMENT TECHNIQUES. [code = PAIN MANAGEMENT; RN TO ASSESS AND TEACH, SAT TUTOR/FACULTY PHYSICIAN TO OBSERVE AND TEACH AND PROVIDE EDUCATION ON PAIN MANAGEMENT TECHNIQUES.] Future Scheduled Test FALL REDUC TION MANAGEMENT; RN TO ASSESS AND OBSERVE, FACULTY PHYSICIAN/SAT TUTOR TO OBSERVE FALL RISK FACTORS AND EDUCATE PATIENT/CAREGIVER ON STRATEGIES TO MINIMIZE THE RISK OF FALLING. [code = FALL REDUCTION MANAGEMENT; RN TO ASSESS AND OBSERVE, FACULTY PHYSICIAN/SAT TUTOR TO OBSERVE FALL RISK FACTORS AND EDUCATE PATIENT/CAREGIVER ON STRATEGIES TO MINIMIZE THE RISK OF FALLING.] Future Scheduled Test OCCUPATION AL THERAPIST TO EVALUATE FOR LEFT SHOULDER PAIN [code = OCCUPATIONAL THERAPIST TO EVALUATE FOR LEFT SHOULDER PAIN] Future Scheduled Test AGENCY MAY PERFORM A RESUMPTION OF CARE VISIT FOLLOWING ANY HOSPITAL ADMISSION. PT TO EVALUATE, OBSERVE / ASSESS, AND MONITOR, MAPPING ANALYST TO OBSERVE AND MONITOR, PROVIDE SKILLED THERAPEUTIC INTERVENTION, ACTIVITY, EDUCATION, AND TRAINING TO ADDRESS; PT/MAPPING ANALYST TO PROVIDE GAIT TRAINING FOR IMPROVED MOBILITY AND /OR TO NORMALIZE GAIT PATTERN NEUROMUSCULAR RE-EDUCATION / BALANCE / POSTURAL CONTROL (PT) THERAPEUTIC EXERCISES AND ESTABLISHING A HOME EXERCISE PROGRAM (PT/MAPPING ANALYST) PT/MAPPING ANALYST TO PROVIDE STAIR TRAINING SIT TO/FROM STAND TRANSFERS (PT/MAPPING ANALYST) PT TO ASSESS / MAPPING ANALYST TO MONITOR FOR AND REPORT EARLY SIGNS OF ANTICOAGULANT TOXICITY TO THE PHYSICIAN AND/OR THE RN CLINICAL PHARMACIST PER DIEM FOR PHYSICIAN NOTIFICATION AND TO PROVIDE PATIENT/CAREGIVER EDUCATION ON ANTICOAGULANT THERAPY PT / MAPPING ANALYST TO MONITOR AND EDUCATE ON OXYGEN SATURATION DURING ADLS/IADLS, NOTIFY PHYSICIAN AND/OR THE RN CLINICAL PHARMACIST PER DIEM FOR PHYSICIAN NOTIFICATION AND IF O2 SATS BELOW PHYSICIAN ORDERED PARAMETERS AFTER 10 MIN OF REST PT TO ASSESS / MAPPING ANALYST TO MONITOR FOR HEART FAILURE EXACERBATION AND RECORD PATIENT REPORTED WEIGHT, AND NOTIFY THE PHYSICIAN AND/OR THE RN CLINICAL PHARMACIST PER DIEM FOR PHYSICIAN NOTIFICATION OF HF EXACERBATION (2LB WEIGHT GAIN IN 1 DAY, 5LBS IN A WEEK OR 5 LBS OVER BASELINE; INCREASED SOB, EDEMA, NEEDING MORE PILLOWS AT NIGHT, CRACKLES IN BASIS OF THE LUNGS OR PMI SHIFT) PT TO ASSESS / MAPPING ANALYST TO MONITOR CARDIO/RESPIRATORY SYSTEM; AND NOTIFY THE PHYSICIAN AND/OR THE RN CLINICAL PHARMACIST PER DIEM FOR PHYSICIAN NOTIFICATION FOR EARLY SIGNS AND SYMPTOMS OF EXACERBATION OR DETERIORATION. PT/MAPPING ANALYST TO IDENTIFY FALL RISK FACTORS; EDUCATE THE PATIENT/CAREGIVER ON WAYS TO REDUCE FALL RISK FACTORS AND ESTABLISH HOME EXERCISE PROGRAM TO MINIMIZE FALL RISK. MAY TEACH THE PATIENT FLOOR RECOVERY WHEN CLINICALLY APPROPRIATE PT / MAPPING ANALYST MAY EDUCATE ON PAIN MANAGEMENT CLINICALLY INDICATED, INCLUDING NON-PHARMACOLOGICAL PAIN REDUCTION TECHNIQUES [code = AGENCY MAY PERFORM A RESUMPTION OF CARE VISIT FOLLOWING ANY HOSPITAL ADMISSION. PT TO EVALUATE, OBSERVE / ASSESS, AND MONITOR, MAPPING ANALYST TO OBSERVE AND MONITOR, PROVIDE SKILLED THERAPEUTIC INTERVENTION, ACTIVITY, EDUCATION, AND TRAINING TO ADDRESS; PT/MAPPING ANALYST TO PROVIDE GAIT TRAINING FOR IMPROVED MOBILITY AND /OR TO NORMALIZE GAIT PATTERN NEUROMUSCULAR RE-EDUCATION / BALANCE / POSTURAL CONTROL (PT) THERAPEUTIC EXERCISES AND ESTABLISHING A HOME EXERCISE PROGRAM (PT/MAPPING ANALYST) PT/MAPPING ANALYST TO PROVIDE STAIR TRAINING SIT TO/FROM STAND TRANSFERS (PT/MAPPING ANALYST) PT TO ASSESS / MAPPING ANALYST TO MONITOR FOR AND REPORT EARLY SIGNS OF ANTICOAGULANT TOXICITY TO THE PHYSICIAN AND/OR THE RN CLINICAL PHARMACIST PER DIEM FOR PHYSICIAN NOTIFICATION AND TO PROVIDE PATIENT/CAREGIVER EDUCATION ON ANTICOAGULANT THERAPY PT / MAPPING ANALYST TO MONITOR AND EDUCATE ON OXYGEN SATURATION DURING ADLS/IADLS, NOTIFY PHYSICIAN AND/OR THE RN CLINICAL PHARMACIST PER DIEM FOR PHYSICIAN NOTIFICATION AND IF O2 SATS BELOW PHYSICIAN ORDERED PARAMETERS AFTER 10 MIN OF REST PT TO ASSESS / MAPPING ANALYST TO MONITOR FOR HEART FAILURE EXACERBATION AND RECORD PATIENT REPORTED WEIGHT, AND NOTIFY THE PHYSICIAN AND/OR THE RN CLINICAL PHARMACIST PER DIEM FOR PHYSICIAN NOTIFICATION OF HF EXACERBATION (2LB WEIGHT GAIN IN 1 DAY, 5LBS IN A WEEK OR 5 LBS OVER BASELINE; INCREASED SOB, EDEMA, NEEDING MORE PILLOWS AT NIGHT, CRACKLES IN BASIS OF THE LUNGS OR PMI SHIFT) PT TO ASSESS / MAPPING ANALYST TO MONITOR CARDIO/RESPIRATORY SYSTEM; AND NOTIFY THE PHYSICIAN AND/OR THE RN CLINICAL PHARMACIST PER DIEM FOR PHYSICIAN NOTIFICATION FOR EARLY SIGNS AND SYMPTOMS OF EXACERBATION OR DETERIORATION. PT/MAPPING ANALYST TO IDENTIFY FALL RISK FACTORS; EDUCATE THE PATIENT/CAREGIVER ON WAYS TO REDUCE FALL RISK FACTORS AND ESTABLISH HOME EXERCISE PROGRAM TO MINIMIZE FALL RISK. MAY TEACH THE PATIENT FLOOR RECOVERY WHEN CLINICALLY APPROPRIATE PT / MAPPING ANALYST MAY EDUCATE ON PAIN MANAGEMENT CLINICALLY INDICATED, INCLUDING NON-PHARMACOLOGICAL PAIN REDUCTION TECHNIQUES ] Goal 2024-09-02 Patient Goal - CONTROL HEART FAILURE Goal Patient Goal - CONTROL HEART FAILURE [...] CHANGES BY EOE Goal Provider Goal - Goal Provider Goal - PT LTG: PATIENT WILL DEMONSTRATE REDUCED GAIT DEVIATIONS TO REDUCE THE RISK FOR FALLING AND MINIMIZE STRAIN ON KNEES/HIPS AND BACK EVIDENCED BY IMPROVED HEEL STRIKE, ADEQUATE STEP LENGTH AND CONSISTENT FOOT CLEARANCE BILATERALLY WITHOUT AD TO WALK INDEPENDENTLY IN ORDER TO ACCESS ALL AREAS OF THE HOME AND TRANSPORTATION WITHIN 8 WEEKS PT LTG: PATIENT WILL DEMONSTRATE REDUCED FALL RISK EVIDENCED BY IMPROVED SELF- SELECTED WALKING SPEED (SSWS CUT SCORE 0.6 TO 0.9 INDICATES MODERATE FALL RISK, 0.6 M/S INDICATES HIGH FALL RISK) FROM 0.6M/SEC TO 1.0M/SEC WITHIN 8 WEEKS PT LTG: PATIENT WILL DEMONSTRATE REDUCED FALL RISK EVIDENCED BY TUG TEST (CUT SCORE >11 SECONDS INDICATES INCREASED FALL RISK) IMPROVING FROM 21 SECONDS TO 11 SECONDS WITHIN 8 WEEKS PT LTG: PATIENT WILL DEMONSTRATE IMPROVED FUNCTIONAL STRENGTH EVIDENCED BY FIVE TIMES SIT TO STAND TEST (CUT SCORE >12 SECONDS INDICATES AN INCREASED FALL RISK) IMPROVING FROM 28 SECONDS TO 15 SECONDS WITHIN 8 WEEKS PT LTG: PATIENT WILL DEMONSTRATE INCREASED STRENGTH OF BILATERAL LES FROM 3+/5 TO 4+/5 WITHIN 8 WEEKS IN ORDER TO IMPROVE SAFETY AND STABILITY WITH GAIT AND STAIRS PT LTG: PATIENT WILL DEMONSTRATE IMPROVED ABILITY TO SAFELY NEGOTIATE STAIRS FROM CGA TO INDEPENDENT WITH RAIL IN ORDER TO SAFELY ACCESS BASEMENT LAUNDRY WITHIN 8 WEEKS PT STG: PATIENT WILL DEMONSTRATE IMPROVED ABILITY TO PERFORM SIT TO/FROM STAND TRANSFERS TO REDUCE THE RISK OF SKIN BREAKDOWN AND REDUCE FALL RISK FROM SUP TO INDEPENDENT WITHIN 3 WEEKS PT LTG: PATIENT WILL NOT EXHIBIT SIGNS AND SYMPTOMS OF ANTICOAGULANT TOXICITY THROUGHOUT EPISODE OF CARE. PT LTG: PATIENT WILL MAINTAIN OXYGEN SATURATION WITHIN PHYSICIAN ORDERED PARAMETERS THROUGHOUT EPISODE OF CARE. PT GOAL: PATIENTS HEART FAILURE WILL REMAIN WELL CONTROLLED THROUGHOUT EPISODE OF CARE. PT LTG: PATIENT WILL NOT EXPERIENCE CARDIAC OR RESPIRATORY COMPLICATIONS THROUGHOUT THE EPISODE OF CARE. PT LTG: PATIENT/CAREGIVER WILL DEMONSTRATE ADHERENCE TO FALL REDUCTION SELF-MANAGEMENT AND REDUCING FALL RISK FACTORS TO MINIMIZE FALL RISK BY END OF EPISODE. PT LTG: PATIENT WILL BE INDEPENDENT WITH IMPLEMENTATION OF HEP WITHIN 4 WEEKS PT GOAL: PATIENT WILL DEMONSTRATE UNDERSTANDING OF PAIN MANAGEMENT TECHNIQUES EVIDENCED BY REDUCED PAIN Encounters Start Date/Time End Date/Time Encounter Type Admission Type Attending [facility] Department Encounter ID Discharge Date Discharge Status Discharge Condition Discharge Reason Percent Goals Met 2024-08-24 00:00:00 2024-10-22 00:00:00 Outpatient DAGOBERTO MALONE [facility] [id number] 25.00
--- OUTSIDE RECORDS SUMMARY | 2024-09-16 09:45 | XMS_ITS | Encounter Summary ---
Author Organization [employer] [facility] Address [address] [place] [address] Care Team Providers Care Marine Animal Trainer Name Role Phone Ghassan Burciaga MD Primary Care Provider Unavail able Pierre Arevalo MD Primary Care Provider Judy vailable Gerson Dawson MD Primary Care Provider Unavail able [facility], Pcp Primary Care Provider Unavailabl e Coleman Mccarthy MD Primary Care Provider Unavaila Ayo Demarco MD Primary Care Provider [phone] Annalee Jones MD Primary Care Provider Un available Pascual Nicholasabela DO Primary Care Pro vider Unavailable Anuj Priest DO Primary Care Provider Judy vailable [facility], Pcp Primary Care Provider Unavailabl e Encounter Details Date Type Department Care Team Description 10/12/2009 Controlled Substance Contract with [facility] Medical Records [address] [place] [id number] Abstract, Provider Social History Tobacco Use Types [...] filedocumented in this encounter Care Teams Marine Animal Trainer Relationship Specialty Start Date End Date Ghassan Burciaga MD PCP - General 07/24/00 05/06/13 Pierre Arevalo MD PCP - General Internal Medicine 05/07/13 4 Gerson Dawson MD PCP - General Internal Medicine 01/30/14 03/20/14 [facility], Pcp PCP - General Internal Medicine 03/21/14 05/06/14 Coleman Mccarthy MD PCP - General Internal Medicine 05/07/14 07/18/16 Ayo Carpio MD [address] [place] [address] PCP - General Internal Medicine 07/19/16 01/05/17 Annalee Jones MD [address] [place] [address] PCP - General Internal Medicine 01/06/17 12/02/18 Yolande Nicholas DO [address] [place] [address] PCP - General Internal Medicine 12/03/18 10/08/20 Anuj Priest DO [address] [place] [address] PCP - General Internal Medicine 10/09/20 06/16/21 [facility], Pcp PCP - General Internal Medicine 06/17/21 documented as of this encounter
--- OUTSIDE RECORDS SUMMARY | 2024-09-16 09:45 | XMS_ITS | Encounter Summary ---
Author Organization [facility] Address [address] [place] [address] Care Team Providers Care Spacer Type Bar And Segment Name Role Phone Yolande Nicholas DO Primary Care Pro vider Unavailable Anuj Priest DO Primary Care Provider [facility], Pcp Primary Care Provider Unavailabl e Reason for Visit * Reason Onset Date Comments Faxed Refill 05/30/2019 Encounter Details Date Type Department Care Team Description 05/30/2019 Refill Adult Medicine [address] [address] Yolande Nicholas DO Faxed Refill Social History [...] the RX # listed on the fax? [id number] Patients current insurance carrier is: Payor: [facility]IC[facility] / Plan: [facility]IC[id number] / Product Type: MEDICARE [id number] documented in this encounter Plan of Treatment Not on file documented as of this encounter Visit Diagnoses Not on filedocumented in this encounter Care Teams Spacer Type Bar And Segment Relationship Specialty Start Date End Date Yolande Nicholas DO PCP - General Internal Medicine 12/03/18 10/08/20 Anuj Priest DO PCP - General Internal Medicine 10/09/[address] [place] [address], Pcp PCP - General Internal Medicine 06/17/21 documented as of this encounter
--- OUTSIDE RECORDS SUMMARY | 2024-09-16 09:45 | XMS_ITS | Encounter Summary ---
Author Organization [employer] Address [address] [facility] 7t [place] [address] Care Team Providers Care Health Companion Name Role Phone Sesar Pereyra MD Primary Care Provider [phone] Encounter Details Date Type Department Care Team ([facility] st Contact Info) Description 05/30/2024 Telephone [facility] [address] [place] [address] Sesar Pereyra MD [address] [place] [address] Social History Tobacco Use Types Packs/Day Years [...] as of this encounter Care Teams Health Companion Relationship Specialty Start Date End Date Sesar Pereyra MD [address] [place] [address] PCP - General Internal Medicine 03/01/21 [facility] 03/22/24 documented as of this encounter
--- OUTSIDE RECORDS SUMMARY | 2024-09-16 09:45 | XMS_ITS | Encounter Summary ---
Author Organization [facility] Address [address] [place] [address] Care Team Providers Care Fulfillment Coordinator Name Role Phone Ghassan Burciaga MD Primary Care Provider Unavail able Pierre Arevalo MD Primary Care Provider Judy vailable Gerson Dawson MD Primary Care Provider Unavail able [facility], Pcp Primary Care Provider Unavailabl e Coleman Mccarthy MD Primary Care Provider Unavaila Ayo Demarco MD Primary Care Provider [phone] Annalee Jones MD Primary Care Provider Un available Pascual Nicholasabela DO Primary Care Pro vider Unavailable Anuj Priest DO Primary Care Provider Judy vailable [facility], Pcp Primary Care Provider Unavailabl e Encounter Details Date Type Department Care Team Description 11/04/2006 Hospital Medical Records [address] [place], [place] [id number] [place] [address] Social History Tobacco Use Types Packs/Day Years [...] filedocumented in this encounter Care Teams Fulfillment Coordinator Relationship Specialty Start Date End Date Ghassan Burciaga MD PCP - General 07/24/00 05/06/13 Pierre Arevalo MD PCP - General Internal Medicine 05/07/13 4 Gerson Dawson MD PCP - General Internal Medicine 01/30/14 03/20/14 [facility], Pcp PCP - General Internal Medicine 03/21/14 05/06/14 Coleman Mccarthy MD PCP - General Internal Medicine 05/07/14 07/18/16 Ayo Carpio MD [address] [place], [place] [id number] PCP - General Internal Medicine 07/19/16 01/05/17 Annalee Jones MD [address] [place], [place] [id number] PCP - General Internal Medicine 01/06/17 12/02/18 Yolande Nicholas DO [address] [place] [address] PCP - General Internal Medicine 12/03/18 10/08/20 Anuj Priest DO [address] [place] [address] PCP - General Internal Medicine 10/09/20 06/16/21 [facility], Pcp PCP - General Internal Medicine 06/17/21 documented as of this encounter
--- OUTSIDE RECORDS SUMMARY | 2024-09-16 09:45 | XMS_ITS | Encounter Summary ---
Author Organization [facility] Address [address] [place] [address] Care Team Providers Care Strap Folding Machine Operator Name Role Phone Yolande Nicholas DO Primary Care Pro vider Unavailable Anuj Priest DO Primary Care Provider Judy Gardner, Pcp Primary Care Provider Unavailabl e Encounter Details Date Type Department Care Team Description 03/14/2019 Release of Information Medical Records [address] [place] [address] Abstract, Provider Social History Tobacco Use Types [...] on filedocumented in this encounter Care Teams Strap Folding Machine Operator Relationship Specialty Start Date End Date Yolande Nicholas DO PCP - General Internal Medicine 12/03/18 10/08/20 Anuj Priest DO PCP - General Internal Medicine 10/09/20 2 Jj, Pcp PCP - General Internal Medicine 06/17/21 documented as of this encounter
--- OUTSIDE RECORDS SUMMARY | 2024-09-16 09:45 | XMS_ITS | Encounter Summary ---
Author Organization [facility] Address [address] [place] [address] Care Team Providers Care Engineer Intern Name Role Phone Ghassan Burciaga MD Primary Care Provider Unavail able Pierre Arevalo MD Primary Care Provider Judy vailable Gerson Dawson MD Primary Care Provider Unavail able [facility], Pcp Primary Care Provider Unavailabl e Coleman Mccarthy MD Primary Care Provider Unavaila Ayo Demarco MD Primary Care Provider [phone] Annalee Jones MD Primary Care Provider Un available Pascual Nicholasabela DO Primary Care Pro vider Unavailable Anuj Priest DO Primary Care Provider Judy vailable [facility], Pcp Primary Care Provider Unavailabl e Encounter Details Date Type Department Care Team Description 08/27/2010 Core Sticker Report Medical Records [address] [place] [address] Anuj [place] Social History Tobacco Use Types [...] filedocumented in this encounter Care Teams Engineer Intern Relationship Specialty Start Date End Date Ghassan Burciaga MD PCP - General 07/24/00 05/06/13 Pierre Arevalo MD PCP - General Internal Medicine 05/07/13 4 Gerson Dawson MD PCP - General Internal Medicine 01/30/14 03/20/14 [facility], Pcp PCP - General Internal Medicine 03/21/14 05/06/14 Coleman Mccarthy MD PCP - General Internal Medicine 05/07/14 07/18/16 Ayo Carpio MD [address] [place] [address] PCP - General Internal Medicine 07/19/16 01/05/17 Annalee Jones MD [address] [place] [address] PCP - General Internal Medicine 01/06/17 12/02/18 Yolande Nicholas, [address] [place] [address] PCP - General Internal Medicine 12/03/18 10/08/20 Anuj Priest DO [address] [place] [address] PCP - General Internal Medicine 10/09/20 06/16/21 [facility], Pcp PCP - General Internal Medicine 06/17/21 documented as of this encounter
--- OUTSIDE RECORDS SUMMARY | 2024-09-16 09:45 | XMS_ITS | Encounter Summary ---
Author Organization [facility] Address [address] [place] [address] Care Team Providers Care Cost Controller Name Role Phone Ghassan Burciaga MD Primary Care Provider Unavail able Pierre Arevalo MD Primary Care Provider Judy vailable Gerson Dawson MD Primary Care Provider Unavail able [facility], Pcp Primary Care Provider Unavailabl e Coleman Mccarthy MD Primary Care Provider Unavaila Ayo Demarco MD Primary Care Provider [phone] Annalee Jones MD Primary Care Provider Un available Pascual Nicholasabela DO Primary Care Pro vider Unavailable Anuj Priest DO Primary Care Provider Ujdy vailable [facility], Pcp Primary Care Provider Unavailabl e Encounter Details Date Type Department Care Team Description 08/06/2010 Release of Information Medical Records [address] [place] [id number] Abstract, Provider Social History Tobacco Use Types [...] on filedocumented in this encounter Care Teams Cost Controller Relationship Specialty Start Date End Date Ghassan Burciaga MD PCP - General 07/24/00 05/06/13 Pierre Arevalo MD PCP - General Internal Medicine 05/07/13 4 Gerson Dawson MD PCP - General Internal Medicine 01/30/14 03/20/14 [facility], Pcp PCP - General Internal Medicine 03/21/14 05/06/14 Coleman Mccarthy MD PCP - General Internal Medicine 05/07/14 07/18/16 Ayo Carpio MD [address] [place] [address] PCP - General Internal Medicine 07/19/16 01/05/17 Annalee Jones MD [address] [place] [address] PCP - General Internal Medicine 01/06/17 12/02/18 Yolande Nicholas, [address] [place] [address] PCP - General Internal Medicine 12/03/18 10/08/20 Anuj Priest DO [address] [place] [address] PCP - General Internal Medicine 10/09/20 06/16/21 [facility], Pcp PCP - General Internal Medicine 06/17/21 documented as of this encounter
--- OUTSIDE RECORDS SUMMARY | 2024-09-16 09:45 | XMS_ITS | Encounter Summary ---
Author Organization [facility] Address [address] [place] [address] Care Team Providers Care Manager Non Profit Name Role Phone Yolande Nicholas DO Primary Care Pro vider Unavailable Anuj Priest DO Primary Care Provider [facility], Pcp Primary Care Provider Unavailabl e Reason for Visit * Reason Onset Date Comments Provider Call Back 04/29/2019 Encounter Details Date Type Department Care Team Description 04/29/2019 Telephone Adult [address] [address] Yolande Nicholas DO Provider Call Back Social [...] EST Im not aware of any in [place] * Telephone Encounter - Minerva Kan R.N. - 04/29/2019 3:[address] Yolande Gomez Are you aware of a detox in [facility] ? * Telephone Encounter - Lonny Lazarus - 04/29/2019 1:15 PM EST Patient relapsed for alcohol abuse 3 days ago and requests to speak to Dr. Yolande Gomez or her team. Patient states that he does want to get better. The patient says Dr. Alvarez mentioned a rehab facility in [place] last time, but he cannot remember the address, phone number, or name of the facility. documented in this encounter Plan of Treatment Not on file documented as of this encounter Visit Diagnoses Not on filedocumented in this encounter Care Teams Manager Non Profit Relationship Specialty Start Date End Date Yolande Nicholas DO PCP - General Internal Medicine 12/03/18 10/08/20 Anuj Priest DO PCP - General Internal Medicine 10/09/[address] [place] [address], Pcp PCP - General Internal Medicine 06/17/21 documented as of this encounter
--- OUTSIDE RECORDS SUMMARY | 2024-09-16 09:45 | XMS_ITS | Encounter Summary ---
Author Organization [employer] Address [address] [facility] 7 [place] [address] Care Team Providers Care Abstract Writer Name Role Phone Sesar Pereyra MD Primary Care Provider [phone] Reason for Visit * Reason Comments Med Refill Encounter Details Date Type Department Care Team ([facility] st Contact Info) Description 06/10/2022 Refill [facility] [address] [place] [address] Sesar Pereyra MD [address] [place], [place] [phone] Primary insomnia Social History Tobacco Use Types [...] sleep documented in this encounter Care Teams Abstract Writer Relationship Specialty Start Date End Date Sesar Pereyra MD [address] [place] [address] PCP - General Internal Medicine 03/01/21 [facility] 03/22/24 documented as of this encounter
--- OUTSIDE RECORDS SUMMARY | 2024-09-16 09:45 | XMS_ITS | Encounter Summary ---
Author Organization [facility] [facility] Address [address] [place] [address] Care Team Providers Care Lease Broker Name Role Phone Ghassan Burciaga MD Primary Care Provider Unavail able Pierre Arevalo MD Primary Care Provider Judy vailable Gerson Dawson MD Primary Care Provider Unavail able [facility], Pcp Primary Care Provider Unavailabl e Coleman Mccarthy MD Primary Care Provider Unavaila Ayo Demarco MD Primary Care Provider [phone] Annalee Jones MD Primary Care Provider Un available Pascual Nicholasabela DO Primary Care Pro vider Unavailable Anuj Priest DO Primary Care Provider Judy vailable [facility], Pcp Primary Care Provider Unavailabl e Encounter Details Date Type Department Care Team Description 11/03/2006 Hospital Medical Records [address] [place] [address] Tyler Bloom MD Social History Tobacco Use [...] on filedocumented in this encounter Care Teams Lease Broker Relationship Specialty Start Date End Date Ghassan Burciaga MD PCP - General 07/24/00 05/06/13 Pierre Arevalo MD PCP - General Internal Medicine 05/07/13 4 Gerson Dawson MD PCP - General Internal Medicine 01/30/14 03/20/14 [facility], Pcp PCP - General Internal Medicine 03/21/14 05/06/14 Coleman Mccarthy MD PCP - General Internal Medicine 05/07/14 07/18/16 Ayo Carpio MD [address] [place], [place] [phone] PCP - General Internal Medicine 07/19/16 01/05/17 Annalee Jones MD [address] [place], [place] [phone] PCP - General Internal Medicine 01/06/17 12/02/18 Yolande Nicholas, DO [address] [place] [address] PCP - General Internal Medicine 12/03/18 10/08/20 Anuj Priest, [address] [place] [address] PCP - General Internal Medicine 10/09/20 06/16/21 [facility], Pcp PCP - General Internal Medicine 06/17/21 documented as of this encounter
--- OUTSIDE RECORDS SUMMARY | 2024-09-16 09:45 | XMS_ITS | Encounter Summary ---
Author Organization [employer] Address [address] [facility] 7t [place] [address] Care Team Providers Care Online Media Buyer Name Role Phone Sesar Pereyra MD Primary Care Provider [phone] Reason for Visit * Reason Onset Date Comments Lab Orders 05/30/2024 Referral 05/30/2024 Encounter Details Date Type Department Care Team (Late st Contact Info) Description 05/30/2024 Telephone [facility] [address] [place] [address] Sesar Pereyra MD [address] [place], [place] [phone] Lab Orders; Referral Social History Tobacco Use [...] documented as of this encounter Care Teams Online Media Buyer Relationship Specialty Start Date End Date Sesar Pereyra MD [address] [place] [address] PCP - General Internal Medicine 03/01/21 [facility] 03/22/24 documented as of this encounter
--- OUTSIDE RECORDS SUMMARY | 2024-09-16 09:45 | XMS_ITS | Encounter Summary ---
Author Organization [facility] Address [address] [place] [address] Care Team Providers Care Naval Gunfire Spotter Name Role Phone Yolande Nicholas DO Primary Care Pro vider Unavailable Anuj Priest DO Primary Care Provider [facility], Pcp Primary Care Provider Unavailabl e Reason for Visit * Reason Onset Date Comments Faxed Refill 06/06/2019 HYDROXYZINE Encounter Details Date Type Department Care Team Description 06/06/2019 Refill Adult Medicine [address] [address] Yolande Nicholas DO Faxed Refill (HYDROXYZINE ) [...] Miscellaneous Notes * Telephone Encounter - Christel Gaemz - 06/06/2019 1:55 PM EST Patient would [...] MEDICARE / Plan: MEDICARE FFS $5 [facility] [id number] / Product Type: MEDICARE [id number] documented in this encounter Plan of Treatment Not on file documented as of this encounter Visit Diagnoses Not on filedocumented in this encounter Care Teams Naval Gunfire Spotter Relationship Specialty Start Date End Date Yolande Nicholas DO PCP - General Internal Medicine 12/03/18 10/08/20 Anuj Priest DO PCP - General Internal Medicine 10/09/[address] [place] [address], Pcp PCP - General Internal Medicine 06/17/21 documented as of this encounter
--- OUTSIDE RECORDS SUMMARY | 2024-09-16 09:45 | XMS_ITS | Encounter Summary ---
Author Organization [employer] [facility] Address [address] [place] [address] Care Team Providers Care Insurance Checker Name Role Phone Ghassan Burciaga MD Primary Care Provider Unavail able Pierre Arevalo MD Primary Care Provider Judy vailable Gerson Dawson MD Primary Care Provider Unavail able [facility], Pcp Primary Care Provider Unavailabl e Coleman Mccarthy MD Primary Care Provider Unavaila Ayo Demarco MD Primary Care Provider [phone] Annalee Jones MD Primary Care Provider Un available Pascual Nicholasabela DO Primary Care Pro vider Unavailable Anuj Priest DO Primary Care Provider Judy vailable [facility], Pcp Primary Care Provider Unavailabl e Encounter Details Date Type Department Care Team Description 12/18/2009 Release of Information Medical Records [address] [place] [address] Abstract, Provider Social History Tobacco Use Types [...] filedocumented in this encounter Care Teams Insurance Checker Relationship Specialty Start Date End Date Ghassan Burciaga MD PCP - General 07/24/00 05/06/13 Pierre Arevalo MD PCP - General Internal Medicine 05/07/13 4 Gerson Dawson MD PCP - General Internal Medicine 01/30/14 03/20/14 [facility], Pcp PCP - General Internal Medicine 03/21/14 05/06/14 Coleman Mccarthy MD PCP - General Internal Medicine 05/07/14 07/18/16 Ayo Carpio MD [address] [place] [address] PCP - General Internal Medicine 07/19/16 01/05/17 Annalee Jones MD [address] [place] [address] PCP - General Internal Medicine 01/06/17 12/02/18 Yolande Nicholas, [address] [place] [address] PCP - General Internal Medicine 12/03/18 10/08/20 Anuj Priest DO [address] [place] [address] PCP - General Internal Medicine 10/09/20 06/16/21 [facility], Pcp PCP - General Internal Medicine 06/17/21 documented as of this encounter
--- OUTSIDE RECORDS SUMMARY | 2024-09-16 09:45 | XMS_ITS | Encounter Summary ---
Author Organization [employer] Address [address] [facility] 7t [place] [address] Care Team Providers Care Sack Filler Name Role Phone Sesar Pereyra MD Primary Care Provider [phone] Reason for Visit * Reason Onset Date Comments Med Refill 04/18/2024 Encounter Details Date Type Department Care Team ([facility] st Contact Info) Description 04/18/2024 Telephone [facility] [address] [place] [address] Sesar Pereyra MD [address] [place] [address] Med Refill Social History Tobacco Use Types [...] needing refill : To be sent to: [id number] - [address] documented in this encounter Plan of Treatment Not on file documented as of this encounter Visit Diagnoses Not on filedocumented in this encounter Additional Health Concerns Assessment Noted Time PHQ-9 Depression Total Score: 16 024 10:59 AM EDT documented as of this encounter Care Teams Sack Filler Relationship Specialty Start Date End Date Sesar Pereyra MD [address] [place] [address] PCP - General Internal Medicine 03/01/21 [facility] 03/22/24 documented as of this encounter
[2024-09-16 11:47] LABS: Anion Gap 13 (12-20); Blood Urea Nitrogen 18 mg/dL (9-16); Calcium 9.4 mg/dL (8.4-10.2); Carbon Dioxide 24 mmol/L (22-29); Chloride 109 mmol/L (96-108); Estimated Glomerular Filt Rate > 60; Glucose Random 79 mg/dL (60-115); Magnesium 2.4 mg/dL (1.6-2.6); Potassium 4.1 mmol/L (3.3-5.1); Sodium 142 mmol/L (135-145)
== END 2024-09-16 08:32 | disposition home or self-care (01) ==
LOC: HO.LAB 08:31
PROVIDERS: Internal Medicine Nephrology; Absent Provider Internal Medicine; PCP Internal Medicine; Visit Provider Nurse Practitioner Family
DX: I11.0 Hypertensive heart disease with heart failure (principal); I50.9 Heart failure, unspecified; R94.31 Abnormal electrocardiogram [ECG] [EKG]; I48.0 Paroxysmal atrial fibrillation; I47.10 Supraventricular tachycardia, unspecified; I73.9 Peripheral vascular disease, unspecified; I71.20 Thoracic aortic aneurysm, without rupture, unspecified; Z79.01 Long term (current) use of anticoagulants; Z79.82 Long term (current) use of aspirin
CPT/HCPCS: 36415; 80048; 83735; 93005; 99212

== ENCOUNTER 2024-09-29 18:16 | Emergency (ER) | payer MEDICARE, MEDICAID, SELFPAY ==
[2024-09-29] VITALS (11 sets, daily range): BP systolic 95–168; BP diastolic 48–83; PULSE 72–104; RESP 13–24; TEMP 36.4–36.6; O2SAT 84–99; BMI 29.7
--- NOTE | ~2024-09-29 | CT_ITS ---
CLINICAL HISTORY: pain CT angiography abdomen and pelvis with contrast. With MIP MPR post processing. Comparison: Limited CT abdomen and pelvis imaging from 04/04/2023 Findings: Mild bibasilar atelectasis and/or pneumonitis, left worse than right. Mild/borderline cardiomegaly. Acute right-sided perinephric hematoma is present with arterial extravasation of the contrast particularly in the dorsal margin of the right kidney. Hematoma extends inferiorly and selectively measures 6.3 x 9.2 x 8.2 cm inferior to the right kidney. Additional perinephric stranding and blood products are nonspecific with thickening of the right-sided Gerota's fascia. Cystic lesions involve both kidneys in the CTA study. Calcified and noncalcified plaque involving the imaged aorta and its branches. 1 cm segment of the moderate to severe stenosis of the celiac axis is proximal. Mild stenosis of the imaged SMA. Severe stenosis of the right renal artery (imaged 32 of series 5). Moderate stenosis of the left renal artery and accessory left renal artery. Surgical clips noted in the left upper quadrant of the abdomen. Bilateral bilateral adrenal hyperplasia is partly obscured. Cystic lesions of the liver are nonspecific with 1 in the left lobe measuring 1 cm and mid liver lesion measuring 1.7 cm (image 18 of series 5); not significantly changed compared to 202. Gallbladder is distended with multiple cholelithiasis. Mild volume loss of the pancreas. The spleen is nonenlarged. Small mesenteric lymph nodes are nonspecific and may be reactive. Small bowel is mildly patulous particularly in right abdomen. The anastomosis. Mild under developing small-bowel obstruction also considered. Wall thickening of the large intestine is nonspecific and can be seen with colitis. Imaged appendix is mildly patulous measures at the upper limits of normal. Gas in the appendix lumen mixed appendicitis unlikely. Mild wall thickening of the imaged urinary bladder. Prostate gland measures 7.2 cm transverse. Postprocedural changes ventral abdominal wall mesh. Stenosis of the left superficial femoral artery distal to by femoral bypass. Vascular clips in the left lower quadrant with occlusion of the left common iliac artery. Reconstitution of the left internal iliac artery and distal branches with collaterals. Artifacts noted including from superficial metal and from left upper extremity in the jirqs-[id number]. Degenerative changes include vacuum disc phenomenon at multiple intervertebral disc. Facet arthropathy is multifocal with ligament calcifications. Mid and lower lumbar spinal stenosis by CT. Wytycpav-ri-mvqard osteoarthritis of the both hips. Mild osseous pelvis deformities appear old/chronic. IMPRESSION: 1. Large right-sided perinephric hematoma with a acute arterial extravasation of the contrast. 2. Multifocal atherosclerosis, with severe right renal artery stenosis. 3. Cholelithiasis. 4. Mild small bowel dilatation is nonspecific adjacent to the anastomosis in the right hemiabdomen. Mild developing small bowel obstruction is considered. This document has been electronically signed by: Franko Rutherford MD on 09/29/2024 21:21:18
--- NOTE | ~2024-09-29 | XR_ITS ---
CLINICAL HISTORY: pain 2 view chest x-ray Comparison: Chest x-ray from 09/09/2024 Findings: Mild bibasilar atelectasis/pneumonitis, left worse than right. Moderate emphysematous changes are redemonstrated. Mediastinum partly obscured without significant change. Degenerative changes include imaged shoulders, AC joints, and partially imaged spine. Right lateral clavicle deformity appears old/chronic. IMPRESSION: Mild bibasilar atelectasis/pneumonitis. This document has been electronically signed by: Franko Rutherford MD on 09/29/2024 21:18:27
--- NOTE | 2024-09-29 07:22 | ECG_ITS ---
Test Reason : CP Blood Pressure : */* mmHG Vent. Rate : 119 BPM Atrial Rate : 119 BPM P-R Int : 118 ms QRS Dur : 80 ms QT Int : 332 ms P-R-T Axes : 51 21 23 degrees QTcB Int : 467 ms Sinus tachycardia Otherwise normal ECG When compared with ECG of 29-Sep-2024 18:34, Premature ventricular complexes are no longer Present Criteria for Septal infarct are no longer Present Referred By: Lonny Delgado Electronically Signed By: ALYSAH BEE
--- NOTE | 2024-09-29 18:31 | ECG_ITS ---
Test Reason : ABDOMINAL PAIN Blood Pressure : */* mmHG Vent. Rate : 87 BPM Atrial Rate : 87 BPM P-R Int : 186 ms QRS Dur : 72 ms QT Int : 436 ms P-R-T Axes : 99 31 64 degrees QTcB Int : 524 ms Sinus rhythm with occasional Premature ventricular complexes Septal infarct (cited on or before 27-Aug-2024) Prolonged QT Abnormal ECG When compared with ECG of 13-Sep-2024 09:10, Sinus rhythm has replaced Ectopic atrial rhythm Nonspecific T wave abnormality no longer evident in Inferior leads Referred By: Lonny Delgado Electronically Signed By: ALYSHA BEE
[2024-09-29] MEDS: Morphine Sulfate 4 MG/ML CARTRIDGE IVPUSH (18:49)
[2024-09-29] MEDS: ondansetron HCL 4 MG/2 ML VIAL IVPUSH (18:49)
[2024-09-29] MEDS: 0.9 % Sodium Chloride 1,000 ML 999 ML IV (19:23)
[2024-09-29 19:29] LABS: Basophils Absolute Auto 0.1 X10*3/uL (0.0-0.2); Basophils Percent Auto 0.4 % (0-2); Eosinophils Absolute Auto 0.1 X10*3/uL (0.0-0.4); Eosinophils Percent Auto 0.5 % (0-4); Hemoglobin 12.1 g/dl (14.0-18.0); Imm Gran Abs Auto 0.04 X10*3/uL (0.00-0.03); Imm Gran Pct Auto 0.3 % (0.0-0.4); Lymphocytes Absolute Auto 1.2 X10*3/uL (1.2-4.9); Lymphocytes Percent Auto 9.6 % (20-40); MANUAL DIFF FLAG NO; Mean Corpuscular HGB Conc 33.6 g/dl (31.0-36.0); Mean Corpuscular Hemoglobin 31.5 pg (27.0-33.0); Mean Corpuscular Volume 93.8 fL (80.0-98.0); Mean Platelet Volume 9.5 fL (9.4-12.4); Monocytes Absolute Auto 1.1 X10*3/uL (0.1-1.2); Monocytes Percent Auto 8.8 % (2-11); Neutrophils Percent Auto 80.4 % (45-73); Platelet Count 266 X10*3/uL (160-400); Red Blood Count 3.84 X10*6/uL (4.60-5.80); Red Cell Distribution Width 16.8 % (11.0-16.0); White Blood Count 12.4 X10*3/uL (4.8-10.8)
[2024-09-29] MEDS: fentaNYL citrate/PF 100 MCG/2 ML VIAL IVPUSH (19:31)
[2024-09-29 19:45] LABS: Alanine Aminotransferase 14 U/L (0-40); Albumin Level 3.6 g/dL (3.5-5.0); Alkaline Phosphatase 95 U/L (39-117); Anion Gap 12 (12-20); Aspartate Amino Transferase 29 U/L (5-37); Bilirubin Total 0.5 mg/dL (0.0-1.0); Blood Urea Nitrogen 16 mg/dL (9-16); Calcium 9.1 mg/dL (8.4-10.2); Carbon Dioxide 25 mmol/L (22-29); Chloride 109 mmol/L (96-108); Creatinine Clr Calc Pharmacy 57.5; Estimated Glomerular Filt Rate 51; Glucose Random 128 mg/dL (60-115); Lipase 23 U/L (8-78); Magnesium 1.9 mg/dL (1.6-2.6); Potassium 3.8 mmol/L (3.3-5.1); Sodium 142 mmol/L (135-145); Total Protein 6.1 g/dL (6.5-8.0)
[2024-09-29 19:48] LABS: Troponin-I High Sensitivity 19.6 ng/L (<3.5-35.0)
[2024-09-29 20:09] LABS: Influenza A PCR NEGATIVE (Negative); Influenza B PCR NEGATIVE (Negative); Resp Syncy Virus RNA Qual PCR NEGATIVE (Negative); SARS COV2 PCR INHOUSE NEGATIVE (Negative)
[2024-09-29] MEDS: HYDROmorphone HCl 1 MG/ML SYRINGE IVPUSH (20:27)
[2024-09-29] MEDS: iohexoL 350 MG/ML 100 ML INFUS..BTL IV (20:41)
--- NOTE | 2024-09-29 21:12 | ED_ITS ---
HPI - General Adult General Chief complaint: Abdominal Pain Stated complaint: R FLANK PAIN X1 HOUR Time Seen by Provider: 09/29/24 18:19 Source: patient, RN notes reviewed and old records reviewed Mode of arrival: EMS Limitations: no limitations History of Present Illness ED Provider: Sandy HPI narrative: 79-year-old male with past medical history significant for obesity, CHF, chronic kidney disease, history of left renal cell carcinoma, pseudoaneurysm of upper extremity, chronic kidney disease status post cardiac catheterization, history of diverticulitis, colostomy and status post reversal, anticoagulation with Eliquis presenting for evaluation of right flank pain. Patient reports after eating a roast beef sandwich about 1 hour prior to arrival he had sudden onset of severe right-sided abdominal pain He reports the pain radiates to his right lower back He has associated nausea but has not vomited. He reports frequent cold sweats. Denies any chest pain, shortness of breath pain He was recently admitted for pneumonia and reports completing his course of antibiotics. He reports taking all his medications this morning including his Eliquis The patient reports that he slipped earlier this afternoon but caught himself with the railing and did not fall to the ground and did not pump into anything He reports he has not had any falls or trauma in at least 4 months since his last fall resulting in a right clavicular fracture He has no other complaints or concerns at this time Related Data Home Medications ?Medication ?Instructions ?Recorded ?Confirmed docusate sodium 100 mg capsule 100 mg PO DAILY 08/17/21 09/16/24 apixaban 5 mg tablet (Eliquis) 5 mg PO BID 01/27/22 09/16/24 atorvastatin 80 mg tablet 80 mg PO DAILY 01/27/22 09/16/24 sertraline 50 mg tablet 50 mg PO DAILY 07/06/22 09/16/24 tamsulosin 0.4 mg capsule 0.4 mg PO DAILY 03/07/23 09/16/24 cilostazol 50 mg tablet 50 mg PO BID 03/27/23 09/16/24 dextroamphetamine-amphetamine 7.5 1 tab PO DAILY 03/18/24 09/16/24 mg tablet melatonin 3 mg capsule 3 mg PO BEDTIME PRN Sleep 04/12/24 09/16/24 aspirin 81 mg tablet,delayed 81 mg PO DAILY 03/13/25 05/19/25 release metoprolol tartrate 25 mg tablet 12.5 mg PO BID 07/11/24 09/16/24 gabapentin 100 mg capsule 300 mg PO BEDTIME Pain (Scale 08/21/24 09/16/24 Score 1-3) albuterol sulfate 90 mcg/actuation 2 puff inhalation Q4H PRN 09/09/24 09/16/24 aerosol inhaler (Ventolin HFA) Shortness Of Breath Or Wheezing oxycodone 5 mg tablet 5 mg PO Q6H PRN pain 09/09/24 09/16/24 rivastigmine tartrate 1.5 mg 1.5 mg PO BID 09/09/24 09/16/24 capsule Previous Rx's ?Medication ?Instructions ?Recorded dronedarone 400 mg tablet (Multaq) 400 mg PO BID #180 tabs 03/21/24 hydralazine 25 mg tablet 25 mg PO BID 30 days #60 tabs 04/19/24 polyethylene glycol 3350 17 gram 17 g PO BEDTIME 30 days #30 ea 06/23/24 oral powder packet cefuroxime axetil 500 mg tablet 500 mg PO Q12H #10 tabs 09/12/24 doxycycline monohydrate 100 mg 100 mg PO Q12H #10 caps 09/12/24 capsule clonazepam 0.5 mg tablet 0.5 mg PO DAILY PRN Anxiety #14 09/14/24 tabs lidocaine 4 % topical patch 1 patch transdermal DAILY #7 ea 09/14/24 (Lidocaine Pain Relief) magnesium oxide 400 mg (241.3 mg 800 mg (2 x 400 mg (241.3 mg 09/14/24 magnesium) tablet magnesium)) PO DAILY #7 tabs potassium chloride 10 mEq 10 meq PO DAILY #7 caps 09/14/24 capsule,extended release furosemide 20 mg tablet 20 mg PO DAILY #90 tabs 09/24/24 Allergies Allergy/AdvReac Type Severity Reaction Status Date / Time No Known Allergies Allergy Verified 09/29/24 18:27 [No Known Allergies*] Review of Systems 2 Constitutional: Constitutional: Denies body ache(s), Denies chills, Denies fever(s) and Denies headache(s) Eyes: Eyes: Denies blurry vision ENT: Denies vertigo, Denies dizziness and Denies headache(s) Cardiovascular: Cardiovascular: Denies chest pain and Denies dyspnea Respiratory: Respiratory: Denies cough and Denies dyspnea Gastrointestinal: Gastrointestinal: Reports abdominal pain, Denies nausea and Denies vomiting Genitourinary: Genitourinary: Denies difficulty urinating, Denies genital pain and Denies dysuria Musculoskeletal: Musculoskeletal: Reports back pain Integumentary/Breasts: Skin/Breast: Denies rash Neurologic: Denies vertigo, Denies dizziness and Denies headache(s) Psychiatric: Psychiatric: Denies anxiety PMFSH Past Medical History Medical History Paroxysmal atrial flutter Preoperative cardiovascular examination Coronary artery disease Hypersomnia Snoring Neuropathy Atherosclerotic cardiovascular disease History of alcohol abuse History of COVID-19 On beta jose at home COPD (chronic obstructive pulmonary disease) On anticoagulant therapy History of atrial fibrillation PVD (peripheral vascular disease) Renal cell carcinoma Hypertension Depression Anxiety Diverticulitis Surgical History History of intestinal surgery History of kidney surgery H/O cardiac catheterization History of colectomy S/P femoral-femoral bypass surgery Social History Social History Household Members: Other Household Members Other:: girlfriend Housing: House Are you a primary career discovery teacher to a significant other at home: No Do you presently have visiting nurse or other home services: Yes Alcohol intake: former Patient Tobacco Use Status: Former Tobacco user Tobacco use type: Cigarette Smoked in Last 30 Days: No Second Hand Smoke Exposure: No Use of substances other than those prescribed or required for medical reasons: No Substance Use Type: Marijuana Advance Directives: Yes Advance Directives Information Provided: Yes Advance Directives on File: No Advance Directives Date on File: 06/09/21 service: No Current occupational status: retired Current occupation: right hand dominant Physical Exam ED Vital Signs: Vital Signs - 24 hr 09/30/24 00:29 09/30/24 00:47 Temperature 97.7 F Pulse Rate 100 Respiratory Rate 13 14 Blood Pressure 118/73 Pulse Oximetry 95 Oxygen Delivery Method Nasal Cannula Oxygen Flow Rate 1 BMI result Body Mass Index 29.7 Const General: alert and awake Nutritional Appearance: well nourished Orientation/consciousness: patient oriented x3 HENMT Head: Yes normocephalic and Yes atraumatic Eyes Eyelids: Yes eyelids normal Conjunctivae: conjunctivae normal Sclerae: sclerae normal Corneas: corneas normal Pupils: Equal, round and reactive pupils present EOM: EOMs intact bilaterally Neck Neck: Yes full ROM Resp Effort & Inspection: normal respiratory effort, able to speak in complete sentences and not labored Cardio Rate: regular rate Rhythm: regular rhythm GI Inspection: No abdominal wall ecchymosis Palpation (GI): not firm, Tenderness to palpation present (GI) (As well as right flank) in the RLQ and in the RUQ; Franklin's sign negative and with no rebound tenderness, Guarding due to palpation present (GI) in the RLQ and in the RUQ; not in the LLQ and not in the LUQ and not rigid Auscultation: normoactive bowel sounds Skin General skin exam: elasticity normal Neuro General: patient oriented x3 Cranial nerves: Yes Equal, round and reactive pupils present and Yes Bilaterally intact EOM present Cognition (Neuro): normal cognition Extrem Other: Moving all extremities well without any obvious deformities Course Reevaluation(s) Reevaluation #1: Patient's CT scan appears to show a perinephric hematoma. The patient is on Eliquis I ordered Kcentra, I ordered type and screen, INR and repeat H&H. Time: 20:40 Reevaluation #2: Received call from [facility], the patient does have active arterial extravasation of the right kidney. I discussed with [facility] transfer line who will look to page back. Patient's vital signs have remained stable, he has required 3 doses of IV narcotic, his blood pressure is low normal, we will trial ketamine 0.3 milligrams/kilogram IV Time: 21:29 Reevaluation #3: I was able to discuss with [facility] Emergency Department, Dr. Perdomo who was an attending. She is willing to accept transfer of care for the patient, however would like to confirm that they have no issues with IR coverage prior to receiving the patient. Plan to await call back confirming IR coverage is available prior to requesting ambulance for transfer. Time: 22:28 Additional Reevaluation(s): 23:[address] Gupta, interventional radiology at [facility] to feels there is no emergent need for IR intervention as the patient has received Kcentra. He does not feel the patient should be transferred to his service. I am waiting to confirm with ER at [facility] that they will still accept transfer of care given that they do in fact have IR coverage if needed 23:21- Patient accepted to the ed under the care of Dr Perdomo at [facility] Medications Administered Discontinued Medications Generic Name Dose Route Start Last Admin Trade Name Arnoldq PRN Reason Stop Dose Admin Fentanyl 100 mcg 09/29/24 19:25 09/29/24 19:31 Fentanyl Citrate/Pf 100 Mcg/2 Ml Vial IVPUSH 09/29/24 19:26 100 mcg ONCE ONE Administration Protocol Fentanyl 50 mcg 09/29/24 23:21 09/30/24 00:29 Fentanyl Citrate/Pf 100 Mcg/2 Ml Vial IVPUSH 50 mcg Q2H PRN Administration severe pain Protocol Hydromorphone HCl 1 mg 09/29/24 20:19 09/29/24 20:27 Hydromorphone Hcl 1 Mg/Ml Syringe IVPUSH 09/29/24 20:20 1 mg ONCE ONE Administration Protocol Sodium Chloride 1,000 mls @ 999 mls/hr 09/29/24 19:15 09/29/24 21:59 Ns IV 09/29/24 20:15 Infused .Q1H1M SOTERO Infusion Prothrombin Complex Concent ( 80 mls @ 480 mls/hr 09/29/24 21:07 09/29/24 21:59 Human) 2,000 unit/ IV IV 09/29/24 21:16 Infused Miscellaneous Supplies .Q10M ONE Infusion Acetaminophen 1,000 mg in 100 mls @ 400 mls/hr 09/29/24 23:21 09/30/24 00:30 Ofirmev IV 09/29/24 23:35 Infused ONCE ONE Infusion Iohexol 100 ml 09/29/24 20:40 09/29/24 20:41 Iohexol 350 Mg/Ml 100 Ml Infus..Btl IV 09/29/24 20:41 80 ml ONCE ONE Administration Ketamine HCl 30 mg 09/29/24 21:30 09/29/24 21:59 Ketamine Hcl/Ns 50 Mg/5 Ml Syringe IVPUSH 09/29/24 21:31 30 mg ONCE STA Administration Ketamine HCl 30 mg 09/29/24 23:21 09/29/24 23:46 Ketamine Hcl/Ns 100 Mg/10 Ml Syringe IVPUSH 09/29/24 23:22 Not Given ONCE STA Ketamine HCl 30 mg 09/29/24 23:42 09/29/24 23:46 Ketamine Hcl/Ns 50 Mg/5 Ml Syringe IVPUSH 09/29/24 23:43 30 mg ONCE STA Administration Morphine Sulfate 4 mg 09/29/24 18:31 09/29/24 18:49 Morphine Sulfate 4 Mg/Ml Cartridge IVPUSH 09/29/24 18:32 4 mg ONCE ONE Administration Protocol Ondansetron HCl 4 mg 09/29/24 18:31 09/29/24 18:49 Ondansetron Hcl 4 Mg/2 Ml Vial IVPUSH 09/29/24 18:32 4 mg ONCE ONE Administration Procedures Procedure Narrative Procedure Narrative: EMERGENCY ULTRASOUND INTERPRETATION- Limited Point of Care Biliary [This study was ordered, performed, and interpreted by myself. The study reveals: Impression: NO EVIDENCE OF ACUTE INFLAMMATION OF THE GALLBLADDER, NO EVIDENCE OF OBSTRUCTIVE BILIARY DISEASE] [Indication: RUQ PAIN Gallbladder: NO WALL THICKENING > 4MM, NO PERICHOLECYSTIC FLUID, NOT GROSSLY DILATED/HYDROPIC. -Additional: WALL MEASUREMENT: CBD MEASURMENT IF OBTAINED: Performed by: Daniel Mart MD Images were stored CPT:34561] __ EMERGENCY ULTRASOUND INTERPRETATION-Limited Retroperitoneal Ultrasound Aorta (AAA) [This study was ordered, performed, and interpreted by myself. The study reveals: Impression: NO EVIDENCE OF AAA, positive for ectasia ] [Indication: ABDOMINAL PAIN / FLANK PAIN / HYPOTENSION Abdominal Aorta: -Proximal Abdominal Aorta: NO EVIDENCE OF ANEURYSM/positive for ectasia -Distal Abdominal Aorta: NO EVIDENCE OF ANEURYSM/positive for ectasia Performed by: Daniel Mart MD Images were stored CPT: 42783] Medical Decision Making Medical Decision Making MDM Narrative: 79-year-old male presents for evaluation of sudden onset of right-sided flank and abdominal pain. A plan of care ultrasound was performed that appeared to show an unremarkable gallbladder, no obvious aortic dilatation. He had associated nausea without vomiting, often differential is acute appendicitis, small-bowel obstruction, obstructive uropathy, constipation. Patient's labs show a leukocytosis of 12.4, unclear etiology, hemoglobin of 12.1 with a hematocrit 36.0, this appears consistent with his recent baseline as his hemoglobin hematocrit from 09/10/2024 for nearly identical on a recent admission. Platelet count within normal limits. Chemistries show an elevated chloride to 109, random glucose of 128 with the patient had just eaten. Renal function is within normal limits but slightly worsening compared to his labs from 2 weeks ago. Differential Diagnosis Differential Diagnoses: The differential diagnosis associated with the presentation includes As above Admission/Observation Consideration of admission/observation: Escalation of care including admission/observation considered Lab Data MDM Lab Attestation statement: I reviewed the patient's lab results. As above 09/29/24 21:26 09/29/24 19:24 Labs: Lab Results 09/29/24 09/29/24 Range/Units 19:24 21:26 WBC 12.4 H (4.8-10.8) X10*3/uL RBC 3.84 L (4.60-5.80) X10*6/uL Hgb 12.1 L 11.0 L (14.0-18.0) g/dl Hct 36.0 L 33.3 L (42.0-52.0) % MCV 93.8 (80.0-98.0) fL MCH 31.5 (27.0-33.0) pg MCHC 33.6 (31.0-36.0) g/dl RDW 16.8 H (11.0-16.0) % Plt Count 266 (160-400) X10*3/uL MPV 9.5 (9.4-12.4) fL Immature Gran % (Auto) 0.3 (0.0-0.4) % Neut % (Auto) 80.4 H (45-73) % Lymph % (Auto) 9.6 L (20-40) % Canadian % (Auto) 8.8 (2-11) % Eos % (Auto) 0.5 (0-4) % Baso % (Auto) 0.4 (0-2) % Lymph # (Auto) 1.2 (1.2-4.9) X10*3/uL Canadian # (Auto) 1.1 (0.1-1.2) X10*3/uL Eos # (Auto) 0.1 (0.0-0.4) X10*3/uL Baso # (Auto) 0.1 (0.0-0.2) X10*3/uL Abs Immat Gran (auto) 0.04 H (0.00-0.03) X10*3/uL Absolute Neuts (auto) 10.0 H (2.0-8.3) x10*3/uL Absolute Nucleated RBC 0.000 (0.0-0.012) X10*3/uL Nucleated RBC % (auto) 0.0 (0.0-0.2) /100WBC PT 14.8 H (10.9-12.4) SEC INR 1.3 H (0.9-1.1) Sodium 142 (135-145) mmol/L Potassium 3.8 (3.3-5.1) mmol/L Chloride 109 H (96-108) mmol/L Carbon Dioxide 25 (22-29) mmol/L Anion Gap 12 (12-20) BUN 16 (9-16) mg/dL Creatinine 1.35 (0.5-1.4) mg/dL Estim Creat Clear Calc 57.5 Estimated GFR 51 Random Glucose 128 H (60-115) mg/dL Lactic Acid 1.5 (0.5-2.0) mmol/L Calcium 9.1 (8.4-10.2) mg/dL Magnesium 1.9 (1.6-2.6) mg/dL Total Bilirubin 0.5 (0.0-1.0) mg/dL AST 29 (5-37) U/L ALT 14 (0-40) U/L Alkaline Phosphatase 95 (39-117) U/L Troponin I High Sens 19.6 D (<3.5-35.0) ng/L Total Protein 6.1 L (6.5-8.0) g/dL Albumin 3.6 (3.5-5.0) g/dL Lipase 23 (8-78) U/L Influenza Type A (PCR) NEGATIVE (Negative) Influenza Type B (PCR) NEGATIVE (Negative) RSV RNA Qual (PCR) NEGATIVE (Negative) SARS-CoV-2 RNA (RT-PCR) NEGATIVE (Negative) Blood Type O Positive Antibody Screen NEGATIVE Independent Interpretation I performed an independent interpretation of an: CT Scan Interpretation: Large right-sided perinephric hematoma Radiology Impression Discussion of test interpretation with radiology: I have reviewed the radiologist's reading. Radiologist Impression: Findings: Mild bibasilar atelectasis and/or pneumonitis, left worse than right. Mild/borderline cardiomegaly. Acute right-sided perinephric hematoma is present with arterial extravasation of the contrast particularly in the dorsal margin of the right kidney. Hematoma extends inferiorly and selectively measures 6.3 x 9.2 x 8.2 cm inferior to the right kidney. Additional perinephric stranding and blood products are nonspecific with thickening of the right-sided Gerota's fascia. Cystic lesions involve both kidneys in the CTA study. Calcified and noncalcified plaque involving the imaged aorta and its branches. 1 cm segment of the moderate to severe stenosis of the celiac axis is proximal. Mild stenosis of the imaged SMA. Severe stenosis of the right renal artery (imaged 32 of series 5). Moderate stenosis of the left renal artery and accessory left renal artery. Surgical clips noted in the left upper quadrant of the abdomen. Bilateral bilateral adrenal hyperplasia is partly obscured. Cystic lesions of the liver are nonspecific with 1 in the left lobe measuring 1 cm and mid liver lesion measuring 1.7 cm (image 18 of series 5); not significantly changed compared to 202. Gallbladder is distended with multiple cholelithiasis. Mild volume loss of the pancreas. The spleen is nonenlarged. Small mesenteric lymph nodes are nonspecific and may be reactive. Small bowel is mildly patulous particularly in right abdomen. The anastomosis. Mild under developing small-bowel obstruction also considered. Wall thickening of the large intestine is nonspecific and can be seen with colitis. Imaged appendix is mildly patulous measures at the upper limits of normal. Gas in the appendix lumen mixed appendicitis unlikely. Mild wall thickening of the imaged urinary bladder. Prostate gland measures 7.2 cm transverse. Postprocedural changes ventral abdominal wall mesh. Stenosis of the left superficial femoral artery distal to by femoral bypass. Vascular clips in the left lower quadrant with occlusion of the left common iliac artery. Reconstitution of the left internal iliac artery and distal branches with collaterals. Artifacts noted including from superficial metal and from left upper extremity in the [id number]. Degenerative changes include vacuum disc phenomenon at multiple intervertebral disc. Facet arthropathy is multifocal with ligament calcifications. Mid and lower lumbar spinal stenosis by CT. [id number] osteoarthritis of the both hips. Mild osseous pelvis deformities appear old/chronic. IMPRESSION: 1. Large right-sided perinephric hematoma with a acute arterial extravasation of the contrast. 2. Multifocal atherosclerosis, with severe right renal artery stenosis. 3. Cholelithiasis. 4. Mild small bowel dilatation is nonspecific adjacent to the anastomosis in the right hemiabdomen. Mild developing small bowel obstruction is considered. This document has been electronically signed by: Franko Rutherford MD on 09/29/2024 21:21:18 Attestation Attending Attestation: I was personally present and available for consultation in the ED and i ndependently examined this patient and performed the components of the E&M independently. I have reviewed everything on the chart that is available and agree with the documentation provided by the [facility] including discussion about the assessment, treatment plan and discussion. Based on medical record the care appears appropriate. 79-year-old male history of vasculopathy on full anticoagulation with atraumatic right flank pain. Upon arrival biliary ultrasound AAA ultrasound did not reveal pathology. Isolated right kidney ultrasound did not show hydronephrosis. Patient's CT later showed large retroperitoneal, perinephric hematoma with active extravasation. No significant hemodynamic instability during ED course. We felt it was reasonable to perform full anticoagulation reversal given the extravasation. Repeat hemoglobin with only minimal drop. Plan: P cc, emergent transfer initiated for potential IR renal artery embolization. COURT spoke to Dr. Ashley after > 1hr in attempts to contact him by transfer line. Je tells me that IR did not feel pt needed emergent embolization. Plan for ED-ED transfer to [facility] Daniel Mart MD [facility] Emergency Medicine Critical Care Time Critical Care Time Critical Care Time: Yes Total Critical Care Time: 115 Attestation: ED Critical Care: Anemia in the setting of severe atraumatic right flank pain with active extravasation from arterial supply in the right kidney. Requiring emergent anticoagulant reversal Authorized and Performed by: Daniel Mart MD Total critical care time: Approximately 115 Due to a high probability of clinically significant, life threatening deterioration, the patient required my highest level of preparedness to intervene emergently and I personally spent this critical care time directly and personally managing the patient. This critical care time included obtaining a history; examining the patient; pulse oximetry; ordering and review of studies; arranging urgent treatment with development of a management plan; evaluation of patient's response to treatment; frequent reassessment; and, discussions with other providers. This critical care time was performed to assess and manage the high probability of imminent, life-threatening deterioration that could result in multi-organ failure. It was exclusive of separately billable procedures and treating other patients and teaching time. Discharge Plan Discharge Clinical Impression: Hematoma of kidney, right, closed Patient Disposition: Xfer [facility] Transfer Details: [facility] Prescriptions: No Action cilostazol 50 mg tablet 50 mg PO BID furosemide 20 mg tablet 20 mg PO DAILY Qty: 90 3RF atorvastatin 80 mg tablet 80 mg PO DAILY Eliquis 5 mg tablet 5 mg PO BID sertraline 50 mg tablet 50 mg PO DAILY polyethylene glycol 3350 17 gram Powder In Packet 17 g PO BEDTIME 30 Days Qty: 30 0RF gabapentin 100 mg capsule 300 mg PO BEDTIME dextroamphetamine-amphetamine 7.5 mg tablet 1 tab PO DAILY Multaq 400 mg Tablet 400 mg PO BID Qty: 180 0RF aspirin 81 mg tablet,delayed release (DR/EC) 81 mg PO DAILY metoprolol tartrate 25 mg tablet 12.5 mg PO BID rivastigmine tartrate 1.5 mg capsule 1.5 mg PO BID albuterol sulfate [Ventolin HFA] 90 mcg/actuation HFA aerosol inhaler 2 puff inhalation Q4H PRN (Reason: Shortness Of Breath Or Wheezing) oxycodone 5 mg tablet 5 mg PO Q6H PRN (Reason: pain) Rx Instructions: Partial Fill upon patient request. doxycycline monohydrate 100 mg Capsule 100 mg PO Q12H Qty: 10 0RF cefuroxime axetil 500 mg Tablet 500 mg PO Q12H Qty: 10 0RF lidocaine [Lidocaine Pain Relief] 4 % Adhesive Patch,Medicated 1 patch transdermal DAILY Qty: 7 0RF Protocol: Apply to: Apply to: affected area clonazepam 0.5 mg Tablet 0.5 mg PO DAILY PRN (Reason: Anxiety) Qty: 14 0RF magnesium oxide 400 mg (241.3 mg magnesium) Tablet 800 mg PO DAILY Qty: 7 0RF potassium chloride 10 mEq capsule, extended release 10 meq PO DAILY Qty: 7 0RF docusate sodium 100 mg capsule 100 mg PO DAILY hydralazine 25 mg tablet 25 mg PO BID 30 Days Qty: 60 4RF Rx Instructions: New med for BP tamsulosin 0.4 mg capsule 0.4 mg PO DAILY melatonin 3 mg capsule 3 mg PO BEDTIME PRN (Reason: Sleep) Interventions: Acute Care Transfer Worksheet (ED) Last Done: 09/30/24 00:47 Discharge Date/Time: 09/30/24 00:50 Print Language: Georgian
[2024-09-29 21:32] LABS: Hematocrit 33.3 % (42.0-52.0)
[2024-09-29 21:37] LABS: INTERNATIONAL NORM RATIO 1.3 (0.9-1.1); Prothrombin Time 14.8 SEC (10.9-12.4)
[2024-09-29] MEDS: Hum Prothrombin Cplx(PCC)4Fact 2,000 UNIT in Container,Empty 0 ML 480 UNIT IV (21:42)
[2024-09-29 21:46] LABS: Lactic Acid 1.5 mmol/L (0.5-2.0)
[2024-09-29] MEDS: Ketamine HCl/NS 50 MG/5 ML SYRINGE 30 MG IVPUSH ×2 (21:59→23:46)
[2024-09-29] MEDS: Acetaminophen 1,000 MG/100 ML PIGGYBACK 400 MG IV (23:33)
--- NOTE | 2024-09-29 23:43 | MHC.EDTECH ---
This Pct assumed care of Patient at 2300 ,vitals taken ,Urine sample collected and sent to lab ,Call alex within Pt reach .
[2024-09-30 00:29] VITALS: RESP 13
[2024-09-30] MEDS: fentaNYL citrate/PF 100 MCG/2 ML VIAL 50 MCG IVPUSH (00:29)
[2024-09-30 00:47] VITALS: BP 118/73; PULSE 100; RESP 14; TEMP 36.5; O2SAT 95
== END 2024-09-30 00:50 | disposition short-term general hospital (02) ==
PROVIDERS: Physician Assistant; Emergency Provider Emergency Medicine; PCP Internal Medicine
DX: S37.011A Minor contusion of right kidney, initial encounter (principal); W18.49XA Other slipping, tripping and stumbling without falling, initial encounter; D64.9 Anemia, unspecified; M54.50 Low back pain, unspecified; K63.89 Other specified diseases of intestine; I13.0 Hypertensive heart and chronic kidney disease with heart failure and stage 1 through stage 4 chronic kidney disease, or unspecified chronic kidney disease; N18.30 Chronic kidney disease, stage 3 unspecified; I50.9 Heart failure, unspecified; J44.9 Chronic obstructive pulmonary disease, unspecified; Z85.53 Personal history of malignant neoplasm of renal pelvis; Z03.818 Encounter for observation for suspected exposure to other biological agents ruled out; Z79.01 Long term (current) use of anticoagulants; Z79.02 Long term (current) use of antithrombotics/antiplatelets; Z79.82 Long term (current) use of aspirin; Y93.9 Activity, unspecified; Y92.9 Unspecified place or not applicable; Y99.9 Unspecified external cause status
CPT/HCPCS: 0241U; 36415; 71046; 74174; 80053; 83605; 83690; 83735; 84484; 85014; 85018; 85025; 85610; 86850; 86900; 86901; 93005; 96361; 96365; 96375; 99285; J0131; J1171; J2270; J2405; J3010; J7168; Q9967

== ENCOUNTER → 2024-09-29 18:31 | Outpatient (BNV) | payer MEDICARE, MEDICAID, SELFPAY | PROVIDERS: Emergency Provider Emergency Medicine; PCP Internal Medicine; Visit Provider Internal Medicine | DX: R00.0 Tachycardia, unspecified (principal); I49.3 Ventricular premature depolarization; I25.2 Old myocardial infarction | CPT/HCPCS: 93010 ==

== ENCOUNTER → 2024-09-29 18:31 | Outpatient (BNV) | payer MEDICARE, MEDICAID, SELFPAY | PROVIDERS: Emergency Provider Emergency Medicine; PCP Internal Medicine; Visit Provider Radiology Neuroradiology | DX: K76.89 Other specified diseases of liver (principal); J98.11 Atelectasis | CPT/HCPCS: 71046; 74174 ==

== ENCOUNTER 2024-10-14 13:13 | Outpatient (REF) | payer MEDICARE, MEDICAID, SELFPAY ==
[2024-10-14 13:32] LABS: MANUAL DIFF FLAG NO
[2024-10-14 14:12] LABS: Basophils Percent Auto 0.4 % (0-2); Eosinophils Percent Auto 0.3 % (0-4); Hematocrit 32.3 % (42.0-52.0); Hemoglobin 9.9 g/dl (14.0-18.0); Imm Gran Abs Auto 0.05 X10*3/uL (0.00-0.03); Imm Gran Pct Auto 0.4 % (0.0-0.4); Lymphocytes Absolute Auto 0.8 X10*3/uL (1.2-4.9); Mean Corpuscular HGB Conc 30.7 g/dl (31.0-36.0); Mean Corpuscular Hemoglobin 29.7 pg (27.0-33.0); Mean Platelet Volume 9.3 fL (9.4-12.4); Monocytes Absolute Auto 0.8 X10*3/uL (0.1-1.2); Monocytes Percent Auto 6.7 % (2-11); Neutrophils Absolute Auto 9.5 x10*3/uL (2.0-8.3); Neutrophils Percent Auto 85.2 % (45-73); Platelet Count 582 X10*3/uL (160-400); Red Blood Count 3.33 X10*6/uL (4.60-5.80); Red Cell Distribution Width 17.4 % (11.0-16.0); White Blood Count 11.1 X10*3/uL (4.8-10.8)
[2024-10-14 14:37] LABS: Anion Gap 14 (12-20); Blood Urea Nitrogen 13 mg/dL (9-16); Carbon Dioxide 22 mmol/L (22-29); Chloride 107 mmol/L (96-108); Estimated Glomerular Filt Rate > 60; Glucose Random 112 mg/dL (60-115); Magnesium 1.9 mg/dL (1.6-2.6); Potassium 3.3 mmol/L (3.3-5.1); Sodium 140 mmol/L (135-145)
--- OUTSIDE RECORDS SUMMARY | 2024-10-14 14:41 | XMS_ITS | Encounter Summary ---
Author Organization [facility] Address [address] [place] [address] Care Team Providers Care Medicaid Business Analyst Name Role Phone Yolande Nicholas DO Primary Care Pro vider Unavailable Anuj Priest DO Primary Care Provider [facility], Pcp Primary Care Provider Unavailabl e Reason for Visit * Reason Onset Date Comments Faxed Refill 09/10/2019 Encounter Details Date Type Department Care Team Description 09/10/2019 Refill Adult Medicine [address] [address] Yolande Nicholas DO Faxed Refill Social History [...] N/A Patients current insurance carrier is: Payor: [facility] / Plan: MEDICARE FFS $[facility] [id number] / Product Type: MEDICARE [id number] documented in this encounter Plan of Treatment Not on file documented as of this encounter Visit Diagnoses Not on filedocumented in this encounter Care Teams Medicaid Business Analyst Relationship Specialty Start Date End Date Yolande Nicholas DO PCP - General Internal Medicine 12/03/18 10/08/20 Anuj Priest DO PCP - General Internal Medicine 10/09/20 2 [facility], Pcp PCP - General Internal Medicine 06/17/21 documented as of this encounter
[2024-10-14 14:45] LABS: TSH reflex Free T4 1.17 uIU/mL (0.32-4.0)
== END 2024-10-14 13:14 | disposition home or self-care (01) ==
LOC: HO.LAB 13:13
PROVIDERS: PCP Internal Medicine; Visit Provider Internal Medicine
DX: J18.9 Pneumonia, unspecified organism (principal); E83.42 Hypomagnesemia; N17.9 Acute kidney failure, unspecified; R41.3 Other amnesia; D64.9 Anemia, unspecified
CPT/HCPCS: 36415; 80048; 83735; 84443; 85025

== ENCOUNTER 2024-10-16 19:24 | Emergency (ER) | payer MEDICARE, SELFPAY ==
--- NOTE | ~2024-10-16 | CT_ITS ---
CLINICAL HISTORY: pain CT abdomen and pelvis without contrast Comparison: CT/SR - CT ANGIO ABDOMEN PELVIS - 09/29/24 20:32 EDT Findings: Minimal right pleural fluid present. There is minimal underlying compressive right lower lobe atelectasis. Minimal left lower lobe atelectasis present. Small gallstones are identified dependently within the gallbladder lumen. No CT evidence for acute cholecystitis. The solid organs are within normal limits. No renal calculi are identified. There appear to be surgical clips surrounding the left kidney. No hydronephrosis or hydroureter. Rbeqfghb-mf-yjyfm right perinephric hematoma redemonstrated with mild associated displacement of the right kidney. No bowel obstruction, pneumoperitoneum, or pneumatosis. There is colonic diverticulosis without CT evidence for acute diverticulitis. Mesh material in place at the anterior abdominal wall, suggesting prior hernia repair. No abdominal aorta aneurysm. Radiopaque stent in place at the right external iliac artery. Femoral-femoral arterial bypass graft present. The prostate gland is enlarged. Scattered calcification present within the prostate gland. No bladder wall thickening. Normal appendix. No acute fracture visualized. Chronic compression deformities redemonstrated at the thoracolumbar spine. Multilevel degenerative disc disease/vacuum disc phenomenon present at the lumbar spine. There is diffuse bony demineralization. IMPRESSION: 1. Zveojvib-gh-qsbot right perinephric hematoma redemonstrated, similar in appearance as compared to the prior examination. There is mild associated displacement of the right kidney. Recommend clinical correlation for possible Page kidney. No hydronephrosis or hydroureter. 2. Cholelithiasis. No CT evidence for acute cholecystitis. 3. Colonic diverticulosis. No CT evidence for acute diverticulitis. 4. Minimal right pleural effusion with minimal underlying compressive right lower lobe atelectasis. 5. Prostatomegaly. This document has been electronically signed by: Alfredo Ross MD on 10/17/2024 03:12:33
[2024-10-16 19:31] VITALS: BP 180/70; PULSE 60; O2SAT 97
[2024-10-16 19:33] VITALS: BP 182/79; PULSE 75; RESP 16; TEMP 36.4; O2SAT 97
--- NOTE | 2024-10-16 19:43 | ECG_ITS ---
Test Reason : AFIB Blood Pressure : */* mmHG Vent. Rate : 68 BPM Atrial Rate : 68 BPM P-R Int : 94 ms QRS Dur : 80 ms QT Int : 492 ms P-R-T Axes : * -11 -2 degrees QTcB Int : 523 ms Sinus rhythm with short VA with Premature supraventricular complexes and with occasional Premature ventricular complexes Anteroseptal infarct , age undetermined Abnormal ECG When compared with ECG of 29-Sep-2024 23:48, Premature ventricular complexes are now Present Premature supraventricular complexes are now Present Vent. rate has decreased by 51 bpm Anteroseptal infarct is now Present Referred By: Generic ED Physician Electronically Signed By: Brad Mims
[2024-10-16 19:50] LABS: MANUAL DIFF FLAG NO
[2024-10-16 19:52] LABS: Basophils Percent Auto 0.4 % (0-2); Eosinophils Percent Auto 0.2 % (0-4); Hematocrit 33.8 % (42.0-52.0); Hemoglobin 10.9 g/dl (14.0-18.0); Imm Gran Abs Auto 0.03 X10*3/uL (0.00-0.03); Imm Gran Pct Auto 0.3 % (0.0-0.4); Lymphocytes Absolute Auto 0.7 X10*3/uL (1.2-4.9); Lymphocytes Percent Auto 7.4 % (20-40); Mean Corpuscular HGB Conc 32.2 g/dl (31.0-36.0); Mean Corpuscular Hemoglobin 30.4 pg (27.0-33.0); Mean Corpuscular Volume 94.2 fL (80.0-98.0); Mean Platelet Volume 8.8 fL (9.4-12.4); Monocytes Absolute Auto 0.8 X10*3/uL (0.1-1.2); Monocytes Percent Auto 8.2 % (2-11); Neutrophils Absolute Auto 7.8 x10*3/uL (2.0-8.3); Neutrophils Percent Auto 83.5 % (45-73); Platelet Count 534 X10*3/uL (160-400); Red Blood Count 3.59 X10*6/uL (4.60-5.80); Red Cell Distribution Width 17.5 % (11.0-16.0); White Blood Count 9.4 X10*3/uL (4.8-10.8)
[2024-10-16 20:09] LABS: Alanine Aminotransferase 38 U/L (0-40); Albumin Level 3.6 g/dL (3.5-5.0); Alkaline Phosphatase 140 U/L (39-117); Anion Gap 14 (12-20); Aspartate Amino Transferase 51 U/L (5-37); Bilirubin Total 1.1 mg/dL (0.0-1.0); Blood Urea Nitrogen 10 mg/dL (9-16); Calcium 9.2 mg/dL (8.4-10.2); Carbon Dioxide 23 mmol/L (22-29); Chloride 107 mmol/L (96-108); Creatinine Clr Calc Pharmacy 70.2; Estimated Glomerular Filt Rate > 60; Glucose Random 112 mg/dL (60-115); Sodium 140 mmol/L (135-145); Total Protein 6.6 g/dL (6.5-8.0)
[2024-10-16 20:10] LABS: INTERNATIONAL NORM RATIO 1.1 (0.9-1.1); Prothrombin Time 12.9 SEC (10.9-12.4)
[2024-10-16 20:29] VITALS: BP 167/69; PULSE 69; RESP 14; O2SAT 96
[2024-10-16] MEDS: clonazePAM 0.5 MG TABLET PO (21:01)
[2024-10-16 21:37] LABS: Appearance Urine Clear; Color Urine Yellow; Glucose Urine UA Negative (Negative); Leukocyte Esterase Urine Negative (Negative); Nitrite Urine Negative (Negative); Urine Blood Negative (Negative); Urine Ketones Negative (Negative); Urine Protein Negative (Neg-Trace)
[2024-10-16 22:17] VITALS: BP 167/64; PULSE 64; RESP 13; TEMP 37.2; O2SAT 97
--- NOTE | 2024-10-16 22:57 | ED.GENADULT ---
HPI - General Adult General Chief complaint: General Medical Stated complaint: groin pain Time Seen by Provider: 10/16/24 20:41 Source: patient Limitations: no limitations History of Present Illness ED Provider: Chikis Kumar PA-C HPI narrative: 79-year-old male with a history of Anxiety, obesity, hypertension, hyperlipidemia, known coronary artery disease, CHF, chronic kidney disease, history of left renal cell carcinoma, pseudoaneurysm of upper extremity, chronic kidney disease, status post cardiac catheterization, status post fem-fem bypass that has remote, history of diverticulitis, colostomy and status post reversal, AFib on Eliquis , peripheral vascular disease, neuropathy, who presents with multiple complaints. Patient states he is feeling anxious, he has been out of his medications for 3 weeks. He states he is not ?feeling well?, since being discharged from a recent admission to [facility] secondary to a renal hematoma. Patient complains of ongoing right groin pain. Related Data Home Medications ?Medication ?Instructions ?Recorded ?Confirmed docusate sodium 100 mg capsule 100 mg PO DAILY 08/17/21 09/16/24 apixaban 5 mg tablet (Eliquis) 5 mg PO BID 01/27/22 09/16/24 atorvastatin 80 mg tablet 80 mg PO DAILY 01/27/22 09/16/24 sertraline 50 mg tablet 50 mg PO DAILY 07/06/22 09/16/24 tamsulosin 0.4 mg capsule 0.4 mg PO DAILY 03/07/23 09/16/24 cilostazol 50 mg tablet 50 mg PO BID 03/27/23 09/16/24 dextroamphetamine-amphetamine 7.5 1 tab PO DAILY 03/18/24 09/16/24 mg tablet melatonin 3 mg capsule 3 mg PO BEDTIME PRN Sleep 04/12/24 09/16/24 aspirin 81 mg tablet,delayed 81 mg PO DAILY 07/11/24 09/16/24 release metoprolol tartrate 25 mg tablet 12.5 mg PO BID 07/11/24 09/16/24 gabapentin 100 mg capsule 300 mg PO BEDTIME Pain (Scale 08/21/24 09/16/24 Score 1-3) albuterol sulfate 90 mcg/actuation 2 puff inhalation Q4H PRN 09/09/24 09/16/24 aerosol inhaler (Ventolin HFA) Shortness Of Breath Or Wheezing oxycodone 5 mg tablet 5 mg PO Q6H PRN pain 09/09/24 09/16/24 rivastigmine tartrate 1.5 mg 1.5 mg PO BID 09/09/24 09/16/24 capsule Previous Rx's ?Medication ?Instructions ?Recorded dronedarone 400 mg tablet (Multaq) 400 mg PO BID #180 tabs 03/21/24 hydralazine 25 mg tablet 25 mg PO BID 30 days #60 tabs 04/19/24 polyethylene glycol 3350 17 gram 17 g PO BEDTIME 30 days #30 ea 06/23/24 oral powder packet cefuroxime axetil 500 mg tablet 500 mg PO Q12H #10 tabs 09/12/24 doxycycline monohydrate 100 mg 100 mg PO Q12H #10 caps 09/12/24 capsule clonazepam 0.5 mg tablet 0.5 mg PO DAILY PRN Anxiety #14 09/14/24 tabs lidocaine 4 % topical patch 1 patch transdermal DAILY #7 ea 09/14/24 (Lidocaine Pain Relief) magnesium oxide 400 mg (241.3 mg 800 mg (2 x 400 mg (241.3 mg 09/14/24 magnesium) tablet magnesium)) PO DAILY #7 tabs potassium chloride 10 mEq 10 meq PO DAILY #7 caps 09/14/24 capsule,extended release furosemide 20 mg tablet 20 mg PO DAILY #90 tabs 09/24/24 Allergies Allergy/AdvReac Type Severity Reaction Status Date / Time No Known Allergies (No Known Allergy Verified 10/16/24 19:40 Allergies*) Review of Systems Review of Systems: Yes all other systems are reviewed and are negative Constitutional: Constitutional: Denies fatigue, Denies fever(s), Reports malaise and Reports poor appetite Cardiovascular: Cardiovascular: Denies chest pain and Denies dyspnea Respiratory: Respiratory: Denies dyspnea Gastrointestinal: Gastrointestinal: Reports abdominal pain, Denies nausea and Denies vomiting Endocrine: Endocrine: Denies fatigue PMFSH Past Medical History Attestation statement: The following information was validated with the patient. Medical History Paroxysmal atrial flutter Preoperative cardiovascular examination Coronary artery disease Hypersomnia Snoring Neuropathy Atherosclerotic cardiovascular disease History of alcohol abuse History of COVID-19 On beta jose at home COPD (chronic obstructive pulmonary disease) On anticoagulant therapy History of atrial fibrillation PVD (peripheral vascular disease) Renal cell carcinoma Hypertension Depression Anxiety Diverticulitis Surgical History History of intestinal surgery History of kidney surgery H/O cardiac catheterization History of colectomy S/P femoral-femoral bypass surgery Social History Social History Household Members: Other Household Members Other:: girlfriend Housing: House Are you a primary small animal caretaker to a significant other at home: No Do you presently have visiting nurse or other home services: Yes Alcohol intake: former Patient Tobacco Use Status: Former Tobacco user Tobacco use type: Cigarette Smoked in Last 30 Days: No Second Hand Smoke Exposure: No Use of substances other than those prescribed or required for medical reasons: No Substance Use Type: Marijuana Advance Directives: No Advance Directives Information Provided: No Advance Directives Date on File: 06/09/21 service: No Current occupational status: retired Current occupation: right hand dominant Physical Exam ED Vital Signs: Vital Signs - 24 hr 10/16/24 19:33 10/16/24 20:29 10/16/24 22:17 Temperature 97.5 F 98.9 F Pulse Rate 75 69 64 Respiratory Rate 16 14 13 Blood Pressure 182/79 H 167/69 H 167/64 H Pulse Oximetry 97 96 97 Oxygen Delivery Method Room Air Room Air Room Air 10/17/24 00:26 10/17/24 02:56 Temperature 97.6 F 98.6 F Pulse Rate 60 61 Respiratory Rate 12 12 Blood Pressure 159/58 H 167/60 H Pulse Oximetry 98 95 Oxygen Delivery Method Room Air Room Air BMI result Body Mass Index 30.0 Const Other: Awake Orientation/consciousness: patient oriented x3 Resp Effort & Inspection: normal respiratory effort Cardio Other: Normal peripheral perfusion GI Other: Soft nontender no guarding with distraction, the right groin is unremarkable I see an old scar there was no erythema there was no warmth there was no swelling Skin Other: Warm dry no rash Neuro General: patient oriented x3, gait normal, no focal motor deficits and CN's II-XI intact bilaterally Psych Other: Hostile, manipulative, talking in circles, we will not answer objective questions, he changes of the topic and reverts back to old illnesses and pain from years ago Course Reevaluation(s) Reevaluation #1: Speaking with Aishwarya from the care team, she basically describes the same encounter I have had with the patient. He avoids answering objective questions in regard to the prescriptions he has received in the past for his clonazepam. He keeps reverting back to past illnesses and his chronic pain. He also perseverates over how anxious he is and how poorly controlled his anxiety is, yet he declines outpatient resources for therapy and counseling. Time: 04:25 Reevaluation #2: At the time of discharge, I relayed to the patient that he had no lab abnormalities, that he had no acute process on his CT scan. The patient continues to ask for medications. I listed the findings from his prescription monitoring, he now has dismissed me, stating that I am ?only a PA?, he is asking to talk with my attending. Prescription monitoring findings Oxycodone 5 mg # 30, filled on October 12 October 10 Dilaudid 2 mg #10 10/06 Oxycodone 10 mg #20 Clonzepam 0.5 mg #60 filled 09/29 Medications Administered Discontinued Medications Generic Name Dose Route Start Last Admin Trade Name Freq PRN Reason Stop Dose Admin Clonazepam 0.5 mg 10/16/24 20:55 10/16/24 21:01 Clonazepam 0.5 Mg Tablet PO 10/16/24 20:56 0.5 mg ONCE ONE Administration Oxycodone HCl 5 mg 10/17/24 00:47 10/17/24 00:58 Oxycodone Hcl Immed Release 5 Mg Tablet PO 10/17/24 00:48 5 mg ONCE ONE Administration Medical Decision Making Medical Decision Making MDM Narrative: 79-year-old male with a history of Anxiety, obesity, hypertension, hyperlipidemia, known coronary artery disease, CHF, chronic kidney disease, history of left renal cell carcinoma, pseudoaneurysm of upper extremity, chronic kidney disease, status post cardiac catheterization, status post fem-fem bypass that has remote, history of diverticulitis, colostomy and status post reversal, AFib on Eliquis , peripheral vascular disease, neuropathy, who presents with multiple complaints. Patient states he is feeling anxious, he has been out of his medications for 3 weeks. He states he is not ?feeling well?, since being discharged from a recent admission to [facility] secondary to a renal hematoma. Patient complains of ongoing right groin pain. Problem: Chronic pain, anxiety, vascular disease History: Per patient I have considered the following differential diagnoses: Medication seeking behavior, malingering, anxiety, decompensated psychiatric illness, acute intra-abdominal pathology, constipation, narcotic bowel syndrome Plan: As I am attempting to interviewed the patient, he often reverts back to prior illnesses, his chronic pain. He will [place] back to how ?his anxiety is out of control?, repeatedly asking for his clonazepam. The patient can not give me a concise time when he last filled his medications, he can not give me a concise answer as to why his primary care provider has not filled his medications in 3 weeks. During my interview, the patient then brings up the fact that he is now developing abdominal pain. He states he is developing cramping in his central abdomen. This was not part of his chief complaint when he was triaged. There was no abnormality noted in the groin, we will obtain a CT scan. I did give the patient a 1 time dose of his clonazepam and a 1 time dose of his oxycodone, I am objectively trying to manage his discomfort until proven otherwise. I will review his MA PAT, I will also have him be seen by the care team. I have independently reviewed the following tests: Labs: No leukocytosis, not anemic, no electrolyte abnormality, troponin at baseline at 12, urine not infected EKG: Sinus rhythm with PVCs, rate of 68, no active ischemic changes, QTC [address] abdomen and pelvis:MPRESSION: 1. [id number]-xz-[id number] right perinephric hematoma redemonstrated, similar in appearance as compared to the prior examination. There is mild associated displacement of the right kidney. Recommend clinical correlation for possible Page kidney. No hydronephrosis or hydroureter. 2. Cholel[address]iasis. No CT evidence for acute cholecystitis. 3. Colonic diverticulosis. No CT evidence for acute diverticulitis. 4. Minimal right pleural effusion with minimal underlying compressive right lower lobe atelectasis. 5. Prostatomegaly. Prescription monitoring findings Oxycodone 5 mg # 30, filled on October 12 October 10 Dilaudid 2 mg #10 10/06 Oxycodone 10 mg #20 Clonzepam 0.5 mg #60 filled 09/29 Lab Data 10/16/24 19:48 10/16/24 19:48 Labs: Lab Results 10/16/24 10/16/24 Range/Units 19:48 21:29 WBC 9.4 (4.8-10.8) X10*3/uL RBC 3.59 L (4.60-5.80) X10*6/uL Hgb 10.9 L (14.0-18.0) g/dl Hct 33.8 L (42.0-52.0) % MCV 94.2 (80.0-98.0) fL MCH 30.4 (27.0-33.0) pg MCHC 32.2 (31.0-36.0) g/dl RDW 17.5 H (11.0-16.0) % Plt Count 534 H (160-400) X10*3/uL MPV 8.8 L (9.4-12.4) fL Immature Gran % (Auto) 0.3 (0.0-0.4) % Neut % (Auto) 83.5 H (45-73) % Lymph % (Auto) 7.4 L (20-40) % [place] % (Auto) 8.2 (2-11) % Eos % (Auto) 0.2 (0-4) % Baso % (Auto) 0.4 (0-2) % Lymph # (Auto) 0.7 L (1.2-4.9) X10*3/uL [place] # (Auto) 0.8 (0.1-1.2) X10*3/uL Eos # (Auto) 0.0 (0.0-0.4) X10*3/uL Baso # (Auto) 0.0 (0.0-0.2) X10*3/uL Abs Immat Gran (auto) 0.03 (0.00-0.03) X10*3/uL Absolute Neuts (auto) 7.8 (2.0-8.3) x10*3/uL Absolute Nucleated RBC 0.000 (0.0-0.012) X10*3/uL Nucleated RBC % (auto) 0.0 (0.0-0.2) /100WBC PT 12.9 H (10.9-12.4) SEC INR 1.1 (0.9-1.1) Sodium 140 (135-145) mmol/L Potassium 4.0 D (3.3-5.1) mmol/L Chloride 107 (96-108) mmol/L Carbon Dioxide 23 (22-29) mmol/L Anion Gap 14 (12-20) BUN 10 (9-16) mg/dL Creatinine 1.08 (0.5-1.4) mg/dL Estim Creat Clear Calc 70.2 Estimated GFR > 60 Random Glucose 112 (60-115) mg/dL Calcium 9.2 (8.4-10.2) mg/dL Total Bilirubin 1.1 H (0.0-1.0) mg/dL AST 51 H (5-37) U/L ALT 38 (0-40) U/L Alkaline Phosphatase 140 H (39-117) U/L Troponin I High Sens 12.2 (<3.5-35.0) ng/L Total Protein 6.6 (6.5-8.0) g/dL Albumin 3.6 (3.5-5.0) g/dL Urine Color Yellow Urine Appearance Clear Urine pH 6.0 (5.0-9.0) Ur Specific [place] 1.010 (1.005-1.025) Urine Protein Negative (Neg-Trace) mg/dL Urine Glucose (UA) Negative (Negative) mg/dL Urine Ketones Negative (Negative) mg/dL Urine Blood Negative (Negative) Urine Nitrite Negative (Negative) Ur Leukocyte Esterase Negative (Negative) Discharge Plan Discharge Clinical Impression: Abdominal pain, Anxiety Patient Disposition: Home, Self-Care Instructions: Abdominal Pain (ED), Anxiety (ED) Additional Instructions: You were seen by the care team, you declined services. I am still providing you with outpatient resources for counseling and therapy for your poorly controlled anxiety. In regard to your request for pain medication and anxiety medication, it appears you have multiple prescriptions that have been filled recently; I thoroughly reviewed your prescription history in the [employer] system. You had no lab abnormalities today, the CT scan of the abdomen revealed no acute process. You need to follow up with your primary care provider to have discussion about the management of your chronic pain and anxiety. Prescriptions: No Action cilostazol 50 mg tablet 50 mg PO BID furosemide 20 mg tablet 20 mg PO DAILY Qty: 90 3RF atorvastatin 80 mg tablet 80 mg PO DAILY Eliquis 5 mg tablet 5 mg PO BID sertraline 50 mg tablet 50 mg PO DAILY polyethylene glycol 3350 17 gram Powder In Packet 17 g PO BEDTIME 30 Days Qty: 30 0RF gabapentin 100 mg capsule 300 mg PO BEDTIME dextroamphetamine-amphetamine 7.5 mg tablet 1 tab PO DAILY Multaq 400 mg Tablet 400 mg PO BID Qty: 180 0RF aspirin 81 mg tablet,delayed release (DR/EC) 81 mg PO DAILY metoprolol tartrate 25 mg tablet 12.5 mg PO BID rivastigmine tartrate 1.5 mg capsule 1.5 mg PO BID albuterol sulfate [Ventolin HFA] 90 mcg/actuation HFA aerosol inhaler 2 puff inhalation Q4H PRN (Reason: Shortness Of Breath Or Wheezing) oxycodone 5 mg tablet 5 mg PO Q6H PRN (Reason: pain) Rx Instructions: Partial Fill upon patient request. doxycycline monohydrate 100 mg Capsule 100 mg PO Q12H Qty: 10 0RF cefuroxime axetil 500 mg Tablet 500 mg PO Q12H Qty: 10 0RF lidocaine [Lidocaine Pain Relief] 4 % Adhesive Patch,Medicated 1 patch transdermal DAILY Qty: 7 0RF Protocol: Apply to: Apply to: affected area clonazepam 0.5 mg Tablet 0.5 mg PO DAILY PRN (Reason: Anxiety) Qty: 14 0RF magnesium oxide 400 mg (241.3 mg magnesium) Tablet 800 mg PO DAILY Qty: 7 0RF potassium chloride 10 mEq capsule, extended release 10 meq PO DAILY Qty: 7 0RF docusate sodium 100 mg capsule 100 mg PO DAILY hydralazine 25 mg tablet 25 mg PO BID 30 Days Qty: 60 4RF Rx Instructions: New med for BP tamsulosin 0.4 mg capsule 0.4 mg PO DAILY melatonin 3 mg capsule 3 mg PO BEDTIME PRN (Reason: Sleep) Print Language: Georgian
[2024-10-16 23:28] LABS: Troponin-I High Sensitivity 12.2 ng/L (<3.5-35.0)
[2024-10-17 00:26] VITALS: BP 159/58; PULSE 60; RESP 12; TEMP 36.4; O2SAT 98
[2024-10-17] MEDS: oxyCODONE HCl Immed Release 5 MG TABLET PO (00:58)
[2024-10-17 02:56] VITALS: BP 167/60; PULSE 61; RESP 12; TEMP 37; O2SAT 95
[2024-10-17] MEDS: Lidocaine HCl Viscous 2 % 15 ML SOLUTION MUCOUS MEM (04:58)
[2024-10-17] MEDS: Magnesium Hydrox/Alum Hydrox 30 ML ORAL.SUSP PO (04:58)
[2024-10-17] MEDS: Famotidine 20 MG TABLET PO (04:58)
[2024-10-17 06:02] VITALS: BP 162/45; PULSE 58; RESP 16; TEMP 37.1; O2SAT 95
[2024-10-17 06:09] VITALS: BP 162/45; PULSE 58; RESP 16; TEMP 37.1; O2SAT 95
== END 2024-10-17 06:09 | disposition home or self-care (01) ==
PROVIDERS: Physician Assistant Medical; Emergency Provider Emergency Medicine; PCP Internal Medicine
DX: R10.31 Right lower quadrant pain (principal); F41.9 Anxiety disorder, unspecified; I13.0 Hypertensive heart and chronic kidney disease with heart failure and stage 1 through stage 4 chronic kidney disease, or unspecified chronic kidney disease; N18.30 Chronic kidney disease, stage 3 unspecified; I50.9 Heart failure, unspecified; N17.9 Acute kidney failure, unspecified; I48.0 Paroxysmal atrial fibrillation; Z85.528 Personal history of other malignant neoplasm of kidney; Z79.01 Long term (current) use of anticoagulants; Z79.899 Other long term (current) drug therapy
CPT/HCPCS: 36415; 74176; 80053; 81003; 84484; 85025; 85610; 93005; 99285; S9485

== ENCOUNTER → 2024-10-16 19:43 | Outpatient (BNV) | payer MEDICARE, SELFPAY | PROVIDERS: Emergency Provider Emergency Medicine; PCP Internal Medicine; Visit Provider Internal Medicine Cardiovascular Disease | DX: I49.1 Atrial premature depolarization (principal); I49.3 Ventricular premature depolarization | CPT/HCPCS: 93010 ==

== ENCOUNTER → 2024-10-17 00:57 | Outpatient (BNV) | payer MEDICARE, SELFPAY | PROVIDERS: Emergency Provider Emergency Medicine; PCP Internal Medicine; Visit Provider Radiology Diagnostic Radiology | DX: S37.019A Minor contusion of unspecified kidney, initial encounter (principal); K80.20 Calculus of gallbladder without cholecystitis without obstruction; K57.30 Diverticulosis of large intestine without perforation or abscess without bleeding; N40.0 Benign prostatic hyperplasia without lower urinary tract symptoms | CPT/HCPCS: 74176 ==

== ENCOUNTER 2024-10-30 09:03 | Outpatient (AMB) | payer MEDICARE, MEDICAID, SELFPAY ==
--- OUTSIDE RECORDS SUMMARY | 2024-10-30 09:13 | XMS_ITS ---
Author Name WILLIE AZEVEDO, [place]. CARRIE LIM Address [address] [address] Phone [phone] Organization [facility] Care Team Providers Care Burn Crew Member Name Role Phone CARRIE TAPIA Unavailable [phone] Reason for Referral Not Available Allergies, adverse reactions, alerts No known allergies History of medication use Medication Class Instructions Start Date End Date Albuterol Sulfate HFA 108 (90 Base) MCG/ACT Aerosol Solution No Data Available 2024-07-13 No Data Available Amphetamine-Dextroamphetamin e 7.5 mg Tab No Data Available 2024-05-27 No Data Available Atorvastatin Calcium 80 mg Tab TAKE 1 TABLET BY MOUTH ONCE DAILY 2024-05-23 No Data Available Cilostazol 50 mg Tab No Data Available 2024-04-30 No Data Available clonazePAM 0.5 mg Tab No Data Available 2024-05-11 N o Data Available Eliquis 5 mg Tab No Data Available 2024-04-30 No Hill a Available Furosemide 20 mg Tab No Data Available 2024-04-16 No Data Available Gabapentin 100 mg Cap No Data Available 2024-05-05 N o Data Available hydrALAZINE 25 mg Tab No Data Available 2024-04-19 N o Data Available MELATONIN 3 MG TABLET TAKE 1 TABLET BY M OUTH AT BEDTIME 2023-11-22 No Data Available Metoprolol Tartrate 25 mg Tab No Data Available 2024-04-01 No Data Available Multaq 400 mg Tab TAKE 1 TABLET BY DEJA TH two (2) times a day WITH BREAKFAST AND DINNER 2024-03-21 No Data Available Potassium Chloride ER 10 MEQ Cap ER No Data Available 2024-09-15 No Data Available Rivastigmine Tartrate 1.5 mg Cap No Data Available 2024-08-15 No Data Available Sertraline 50 mg Tab No Data Available 2024-01-26 No Data Available Tamsulosin 0.4 mg Cap No Data Available 2024-02-09 N o Data Available Problem List Problem Status Onset Date Resolved Date Synopsis Hyperlipidemia Active 2024-10-07 N/A N/A Neuropathy Active 2024-10-07 N/A N/A HTN (hypertension) Active 2024-10-07 N/A N/A BPH (benign prostatic hyperplasia) Active 2024-10-07 N /A N/A Encounters Encounters Type Facility Date of Service Diagnosis/Co mplaint [facility] [place], [place], 10/07/2024 Minor contusion of unspecified kidney, initial encounterEncntr for f/u exam aft trtmt for cond oth than malig neoplm [facility] [place], [place], 10/07/2024 Minor contusion of unspecified kidney, initial encounterEncntr for f/u exam aft trtmt for cond oth than malig neoplm Social History Sex Male Gender identity Man History of Procedures Procedures Service Procedure code Service date Servicing provider Phone# [facility] [address] 2024-10-07 No Data Available No Data Avail able Medrec Completed within 30 Days of Discharge 1111F 2024-10-07 No Data Available No Data Availa ble Functional Status No Information Mental Status No Information Assessments Date of Service Assessments 2024-10-07 07:50:36 Minor contusion of u nspecified kidney, initial encounter Plan of Care Date of Service Plans 2024-10-07 07:50:36 Pt was discharged ho vt. Pt states that he is safe at home. Pt has visiting nurses coming and his girlfriend is active in his care with helping him to schedule appt with his PCP. Pt denies any concerns or questions at this time. Goals Date Goal 2024-10-07 Provider recommendat ions and precautions reviewed with patient.They have been advised to call the urgent care number provided for any concerning symptoms or signs that arise prior to 11/05/2024. Patient expressed understanding and agreement with the plan. Health Concerns Date Concern 2024-10-07 Plan name:[facility] [employer] Access Ends (30 days from dc date): 11/05/2024Patient texting capabilities:n/a 2024-10-07 Visit modality:Phone visit 2024-10-07 Transitions of Care Visit:The patient name and date of were confirmed.The patient/caregiver consented to a CESAR/PD visit with Toni. The patient was present at the time of the visit. Pt spoke with: Jay Jay Tidwell during call: Pt onlyPatient s preferred language: EnglishTime spent with patient: 13 minutesHPI: Pt is a 79 yo M. Pt reports a history of htn, hyperlipidemia, chronic pain, neuropathy. Pt states that he went to the hospital for L thigh pain, thought it was a clot. Did not need surgery and was given pain medication. Pt does not know when his f/u appt with his PCP is but knows that it is coming up. Pt also states that visiting nurses will be coming this week as well. Pt seems a little flustered when trying to take a history and go through his medications. Pt states his girlfriend knows what is going on. 2024-10-07 Type of Visit: Marcy jack: [facility]Admit Date:09/30/2024Discharge Date: 10/06/2024Discharge diagnosis: MINOR CONTUSION OF UNSPECIFIED KIDNEY, INITIAL ENCOUNTER
--- OUTSIDE RECORDS SUMMARY | 2024-10-30 09:13 | XMS_ITS | Clinical Summary ---
Author Organization [facility] Address [address] [place] [address] Care Team Providers Care Label Printer Name Role Phone Nuha Galvin PA-C Primary Care Provider [phone] Source Comments PLEASE NOTE, if this patient [...] Date Sleep disorder 02/02/2015 Overview (02/02/2015): Saw [facility] and sleep on 01/15/2015: Dr. Johnson [...] once a year. In remission Seen at [facility] urology Depression with anxiety 04/01/2014 Overview (04/01/2014): Dr. Pradhan at [facility]. Is going to establish care at a new facility. PVD (peripheral vascular dis ease) with claudication (CMS-HCC V24) 04/01/2014 Overview (07/04/2014): Fem-Fem done by Dr. Hensley in 2006. Sees this doctor once a year at [facility]. Follows up with this facility every 6 months. 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 Diverticulitis of colon 04/01/2014 Overview (04/01/2014): Sony done 2007 at [facility] Thoracic aneurysm without mention of rupture 06/2013 Overview (03/24/2015): Seen by [facility] [...] 80 07/13/2015 9:42 AM EDT Temperature 36.6 C (97.8 F) 07/13/2015 9:42 AM EDT Respiratory Rate 16 07/13/2015 9:42 AM EDT Oxygen Saturation - - Inhaled Oxygen Concentration - - Weight 99.3 kg (219 lb) 07/13/2015 9:42 AM EDT Height 185.4 cm (6' 1 ) 07/13/2015 9:42 AM EDT Body Mass Index 28.89 07/13/2015 9:42 AM EDT Plan of Treatment Not on file Insurance [employer] MEDICARE - [place] Care Teams Label Printer Relationship Specialty Start Date End Date Nuha Galvin PA-C [facility] [place] [address] PCP - General 03/21/18
--- OUTSIDE RECORDS SUMMARY | 2024-10-30 09:13 | XMS_ITS | Encounter Summary ---
Author Organization [employer] Address [address] [place] [address] Care Team Providers Care Scaffold Worker Name Role Phone Sesar Pereyra MD Primary Care Provider [phone] Reason for Visit * Reason Onset Date Comments Med Refill 09/24/2024 Encounter Details Date Type Department Care Team ([facility] st Contact Info) Description 09/24/2024 Refill [facility] [address] [place] [address] Sesar Pereyra MD [address] [place] [address] Dislocation of left ulnohumeral joint, initial encounter Social History Tobacco Use Types [...] Care Team (Late st Contact Info) Description 12/25/2024 2:00 PM EDT Office Visit [facility] [address] [place] [address] Sesar Pereyra MD [address] [place] [address] documented as of this encounter Visit Diagnoses Diagnosis Dislocation of left ulnohumeral joint, initial encounter documented in this encounter Additional Health Concerns Assessment Noted Time PHQ-9 Depression Total Score: 6 07/25/19 25 3:22 PM EDT documented as of this encounter Care Teams Scaffold Worker Relationship Specialty Start Date End Date Sesar Pereyra MD [address] [place] [address] PCP - General Internal Medicine [facility] documented as of this encounter
--- OUTSIDE RECORDS SUMMARY | 2024-10-30 09:13 | XMS_ITS | Clinical Summary ---
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 demonstrated on recent CT. I suspect a perinephric component extending along the mid right kidney. There is no shadowing calculus demonstrated in the right kidney. SPLEEN: The spleen measures 12.5 cm which is approximately one standard deviation above the mean expected. No focal abnormality. FLUID: There is a small amount of hepatorenal fossa fluid. Procedure Note Truong Mcgrath MD - 10/08/2024 EXAMINATION: ABDOMEN ULTRASOUND, LIMITED CLINICAL INFORMATION: Jaundice. Pain. Evaluate for cirrhosis. Previous report indicates known right perinephrichematoma. Previous partial left nephrectomy COMPARISON: Selected portions of CT performed without contrast 10/08/24 TECHNIQUE: Ultrasound of the abdomen, limited FINDINGS: QUALITY: The study is mildly limited secondary to habitus, bowel gas andperinephric hematoma. LI - RADS visualization score = Visualization A: No or minimallimitations LILLY for visualization scoring: A - Minimal limitations-unlikely to meaningfully affect sensitivity B - Moderate limitations-limitations may obscure small masses C - Severe limitations-limitations significantly lowers sensitivity forfocal liver lesions PANCREAS: No large abnormality in the visualized pancreas. ABDOMINAL AORTA/IVC: No suspicious abnormality in the visualized portionsof the abdominal aorta or inferior vena cava. LIVER: The right lobe of the liver measures 16.6 cm. The background hepatic echotexture is slightly heterogeneous. The livercontour appears smooth. The portal tracts are visualized. The diaphragmis partially visualized. There are some small hepatic cysts with no suspicious features. No suspicious focal liver lesion. BILIARY: There are multiple small gallstones. No gallbladder wallthickening. COMMON BILE DUCT: The common duct measures 0.6 cm which is within normallimits. GALLBLADDER TENDERNESS: There is no reported tenderness to transducerpressure over the gallbladder. KIDNEYS: Right renal length: At least 11.2 cm in greatest length. Left renal length: Not examined. There is no dilation of the intrarenal collecting system in the rightkidney. There is no suspicious focal lesion demonstrated in the upper and midright kidney. There is altered echotexture and abnormal echogenicity associated with thelower pole of the right kidney. This correlates to an area of hematomademonstrated on recent CT. I suspect a perinephric component extendingalong the mid right kidney. There is no shadowing calculus demonstrated in the right kidney. SPLEEN: The spleen measures 12.5 cm which is approximately one standarddeviation above the mean expected. No focal abnormality. FLUID: There is a small amount of hepatorenal fossa fluid. IMPRESSION: There is a known hematoma associated with the lower right kidney There are multiple small gallstones without biliary dilation. No convincing sonographic evidence of hepatic cirrhosis or suspiciousfocal liver lesion -------- FINAL REPORT -------- Dictated By: Truong Mcgrath Dictated Date: 10/08/2024 14:50 ET Assigned Physician: Truong Mcgrath Reviewed and Electronically Signed By: Truong Mcgrath Signed Date: 10/08/2024 15:01 ET Workstation ID: [id number] Transcribed By: Self Edit Transcribed Date: 10/08/2024 14:50 ET us Modesta YUN IMG US PROCEDURES Final Result * Troponin I high sensitivity (10/08/2024 12:02 PM EDT) Only the most recent of2 resultswithin the time period is included. High Sensitivity Troponin I 22 <=79 ng/L LAB CHEMISTRY METHOD 10/08/2024 1:10 PM EDT [facility] Blood Venous blood specimen / Unknown Venipuncture / Unknown 10/08/2024 12:02 PM EDT 10/08/2024 12:35 PM EDT Narrative [facility] - 10/08/2024 1:10 PM EDT High levels of biotin in samples may falsely decrease hsTroponin values. Use caution when interpreting hsTroponin results in patients taking biotin who exhibit renal impairment (eGFR <60) or in patients taking more than 20 mg/day of biotin. us Alexi Patel MD LAB BLOOD ORDERABLES Final Res ult [facility] [address] [place] [address], [place] [phone] * CT Abdomen Pelvis wo Contrast (10/08/2024 10:43 AM EDT) Anatomical Region Laterality Modality Body Computed Tomogra phy 10/08/2024 10:5 2 AM EDT Impressions 10/08/2024 11:04 AM EDT Impression: 1. Large right renal/perinephric hematoma, with extensive hemorrhagic fat stranding in the right perinephric space. 2. Cholelithiasis. No evidence of acute cholecystitis or biliary obstruction. 3. Small complex right pleural effusion. Darnell YUN ([id number]) -------- FINAL REPORT -------- Dictated By: Ericka Taylor Dictated Date: 10/08/2024 10:52 ET Assigned Physician: Ericka Taylor Reviewed and Electronically Signed By: Ericka Taylor Signed Date: 10/08/2024 11:04 ET Workstation ID: [id number] Transcribed By: Self Edit Transcribed Date: 10/08/2024 10:52 ET Narrative 10/08/2024 11:04 AM EDT History: Groin pain. Known right renal hematoma. Prior partial left nephrectomy (2006) for renal carcinoma. Comparison: Noncontrast CT abdomen/pelvis 05/25/04, reports only from renal ultrasound 06/30/[address] abdomen/pelvis to 124 Technique: Helical volumetric imaging of the abdomen and pelvis was performed without intravenous or oral contrast. DLP: 1848.22 mGy/cm NETpeas Iterative reconstruction technique Findings: A hyperdense 12 x 6 x 9 cm mass is seen at the lower pole of the right kidney, extending cephalad along the renal capsule, accompanied by extensive high density right perinephric fat stranding, consistent with a renal hematoma that is at least partially subcapsular in location, compressing the underlying renal parenchyma. No hydronephrosis is seen. Partial left nephrectomy sequela are noted. No hydronephrosis is seen. The unenhanced liver is remarkable for scattered circumscribed round hypoattenuating lesions, most likely representing cysts, the largest 2 cm in diameter. The gallbladder is physiologically distended and contains several tiny calculi which layer dependently. No evidence of biliary obstruction is seen. The spleen, pancreas and left adrenal gland are unremarkable. A 13 mm right adrenal nodule has CT numbers consistent with an adenoma. No abdominal aortic aneurysm is seen. A right external iliac artery stent is noted and sequela of femoral-femoral arterial bypass grafting is seen. No ascites is identified. The prostate is enlarged. The urinary bladder appears unremarkable. No evidence of bowel obstruction is seen. Diverticulosis of the colon is present without evidence of diverticulitis. There is focal thickening of the appendix, up to 11 mm in diameter, directly abutting the perinephric hemorrhagic process and likely reactive in nature. Acute appendicitis is felt to be less likely. Ventral herniorrhaphy sequela are noted. Lumbar disc degenerative changes and facet arthritis are noted. A small intermediate density right pleural effusion is noted. Procedure Note Ericka Taylor MD - 10/08/2024 History: Groin pain. Known right renal hematoma. Prior partial leftnephrectomy (2006) for renal carcinoma. Comparison: Noncontrast CT abdomen/pelvis 05/25/04, reports only from renalultrasound 06/30/[address] abdomen/pelvis to 124 Technique: Helical volumetric imaging of the abdomen and pelvis wasperformed without intravenous or oral contrast. DLP: 1848.22 mGy/cm Cortiliaer Iterative reconstruction technique Findings: A hyperdense 12 x 6 x 9 cm mass is seen at the lower pole of the rightkidney, extending cephalad along the renal capsule, accompanied byextensive high density right perinephric fat stranding, consistent with arenal hematoma that is at least partially subcapsular in location,compressing the underlying renal parenchyma. No hydronephrosis is seen. Partial left nephrectomy sequela are noted. No hydronephrosis is seen. The unenhanced liver is remarkable for scattered circumscribed roundhypoattenuating lesions, most likely representing cysts, the largest 2 cmin diameter. The gallbladder is physiologically distended and containsseveral tiny calculi which layer dependently. No evidence of biliaryobstruction is seen. The spleen, pancreas and left adrenal gland are unremarkable. A 13 mmright adrenal nodule has CT numbers consistent with an adenoma. No abdominal aortic aneurysm is seen. A right external iliac artery stentis noted and sequela of femoral-femoral arterial bypass grafting is seen.No ascites is identified. The prostate is enlarged. The urinary bladderappears unremarkable. No evidence of bowel obstruction is seen. Diverticulosis of the colon ispresent without evidence of diverticulitis. There is focal thickening ofthe appendix, up to 11 mm in diameter, directly abutting the perinephrichemorrhagic process and likely reactive in nature. Acute appendicitis isfelt to be less likely. Ventral herniorrhaphy sequela are noted. Lumbar disc degenerative changes and facet arthritis are noted. A small intermediate density right pleural effusion is noted. IMPRESSION: Impression: 1. Large right renal/perinephric hematoma, with extensive hemorrhagic fatstranding in the right perinephric space. 2. Cholelithiasis. No evidence of acute cholecystitis or biliaryobstruction. 3. Small complex right pleural effusion. Teleyeni YUN ([id number]) -------- FINAL REPORT -------- Dictated By: Ericka Taylor Dictated Date: 10/08/2024 10:52 ET Assigned Physician: Ericka Taylor Reviewed and Electronically Signed By: Ericka Taylor Signed Date: 10/08/2024 11:04 ET Workstation ID: [id number] Transcribed By: Self Edit Transcribed Date: 10/08/2024 10:52 ET us Ji Crow DO IMG CT PROCEDURES Final Res ult * Prothrombin time with INR (10/08/2024 10:40 AM EDT) Pathologist [facility] Protime 13.9 10.6 - 13.9 sec LAB COAGULATION METHOD 10/08/2024 10:51 AM EDT [facility] INR 1.1 LAB COAGULATION METHOD 10/08/2024 10:51 AM EDT [facility] Blood Venous blood specimen / Unknown Venipuncture / Unknown 10/08/2024 10:40 AM EDT 10/08/2024 10:43 AM EDT us Ji Crow DO LAB BLOOD ORDERABLES Final Result [facility] [address] [place] [address], [place] [phone] * Type and screen (10/08/2024 10:33 AM EDT) ABO Group O 10/08/2024 11:44 AM EDT [facility] Rh Type Positive 10/08/2024 11:44 AM EDT [facility] Antibody Screen Negative 10/08/2024 11:44 AM EDT [facility] Blood Venous blood specimen / Unknown Venipuncture / Unknown 10/08/2024 10:33 AM EDT 10/08/2024 10:43 AM EDT us Ji Crow DO LAB BLOOD BANK TEST ORDERAB LES Final Result Performing Organization Address City/[facility]/ZIP Co de Phone Number [facility] [address] [place] [address], [place] [phone] * (ABNORMAL) B-type natriuretic peptide (10/08/2024 10:33 AM EDT) BNP 369(H) <=100 pcg/mL LAB CHEMISTRY METHOD 10/08/2024 11:29 AM EDT [facility] Blood Venous blood specimen / Unknown Venipuncture / Unknown 10/08/2024 10:33 AM EDT 10/08/2024 10:43 AM EDT us iJ Crow DO LAB BLOOD ORDERABLES Final Result Performing Organization Address [facility] Co de Phone Number [facility] [address] [place] [address], [place] [phone] * Lipase (10/08/2024 10:33 AM EDT) Lipase 22 13 - 75 unit/L LAB CHEMISTRY METHOD 10/08/2024 11:24 AM EDT [facility] Blood Venous blood specimen / Unknown Venipuncture / Unknown 10/08/2024 10:33 AM EDT 10/08/2024 10:43 AM EDT us Ji Corw DO LAB BLOOD ORDERABLES Final Result Performing Organization Address City/[facility]/ZIP Co de Phone Number [facility] [address] [place] [address], [place] [phone] * Ethanol (10/08/2024 10:33 AM EDT) Pathologist [facility] Ethanol Level <3 0 - 10 mg/dL LAB CHEMISTRY METHOD 10/08/2024 4:53 PM EDT [facility] Blood Venous blood specimen / Unknown Venipuncture / Unknown 10/08/2024 10:33 AM EDT 10/08/2024 10:43 AM EDT Modesta YUN LAB BLOOD ORDERABLES Final Resul t [facility] [address] [place] [address], [place] [phone] * (ABNORMAL) Comprehensive metabolic panel (10/08/2024 10:33 AM EDT) [facility] Sodium 136 133 - 145 mmol/L LAB CHEMISTRY METHOD 10/08/2024 11:24 AM [facility] Potassium 4.6 3.5 - 5.5 mmol/L LAB CHEMISTRY METHOD 10/08/2024 11:24 AM [facility] Chloride 105 96 - 110 mmol/L LAB CHEMISTRY METHOD 10/08/2024 11:24 AM [facility] CO2 24 21 - 32 mmol/L LAB CHEMISTRY METHOD 10/08/2024 11:24 AM [facility] Anion Gap 7 3 - 11 LAB CHEMISTRY METHOD 10/08/2024 11:24 AM [facility] Glucose 107(H) 70 - 100 mg/dL LAB CHEMISTRY METHOD 10/08/2024 11:24 AM [facility] BUN 18 5 - 25 mg/dL LAB CHEMISTRY METHOD 10/08/2024 11:24 AM [facility] Creatinine 1.36(H) 0.70 - 1.30 mg/dL LAB CHEMISTRY METHOD 10/08/2024 11:24 AM [facility] eGFR 54(L) >=60 mL/min/1. 73m2 LAB CHEMISTRY METHOD 10/08/2024 11:24 AM [facility] Comment:Calculation based on the Chronic Kidney Disease Epidemiology Collaboration (CKD-EPI) equation refit without adjustment for race. BUN/Creatinine Ratio 13.2 LAB CHEMISTRY METHOD 10/08/2024 11:24 AM [facility] Calcium 8.5 8.5 - 10.5 mg/dL LAB CHEMISTRY METHOD 10/08/2024 11:24 AM [facility] AST (SGOT) 97(H) 10 - 42 unit/L LAB CHEMISTRY METHOD 10/08/2024 11:24 AM [facility] ALT (SGPT) 118(H) 10 - 60 unit/L LAB CHEMISTRY METHOD 10/08/2024 11:24 AM [facility] Alkaline Phosphatase 146(H) 42 - 121 unit/L LAB CHEMISTRY METHOD 10/08/2024 11:24 AM [facility] Total Protein 5.9(L) 6.0 - 8.0 g/dL LAB CHEMISTRY METHOD 10/08/2024 11:24 AM [facility] Albumin 2.8(L) 3.2 - 5.0 g/dL LAB CHEMISTRY METHOD 10/08/2024 11:24 AM [facility] Total Bilirubin 1.6(H) 0.0 - 1.4 mg/dL LAB CHEMISTRY METHOD 10/08/2024 11:24 AM [facility] Blood Venous blood specimen / Unknown Venipuncture / Unknown 10/08/2024 10:33 AM EDT 10/08/2024 10:43 AM EDT us Ji Crow DO LAB BLOOD ORDERABLES Final Result [facility] [address] [place] [address], from Last 3 Months Insurance [place]ICA[place] A[employer] MEDICARE ADVANTAGE Advance Directives Documents on File Type Date Recorded 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 Care Proxy * Full Code - Default (Latest Code Status on File) Date Activated Date Inactivated Comments 10/08/2024 12:35 PM 10/10/2024 3:43 PM This is ord er is used when code status has not been discussed with the patient, or code status is otherwise unknown/unconfirmed To update the patient's code status, place a code status order. Do not modify or discontinue any currently active code status orders. Healthcare Agents on File Name Relationship Healthcare Agent Relationsak p Communication Ame Godwin Friend Health Care Agent Care Teams Pe Electrical Engineer Relationship Specialty Start Date End Date Sesar Pereyra MD [address] [place] [id number] PCP - General Internal Medicine 10/08/24
--- OUTSIDE RECORDS SUMMARY | 2024-10-30 09:14 | XMS_ITS | Continuity of Care Document ---
Author Organization [employer] [facility] Address [address] [place] [address] Insurance Providers Payer Plan Claims Address Claims Phone Policy Number Group Number Relation Employer Guarantor Name Guarantor Guarantor Address Guarantor Phone AARP Medic are Advan tage Plan [id number] Self Alex Nettles 1945 [address] [place], [place] [id number] [employer] Medic are [id number] Self Alex Nettles [address] [place] [address] [id number] Healt h Safet y Net Parti al [id number] Self Alex Nettles 1945 [address] [place], [place] [id number] Problems Unknown Problems Results Test Value / Unit Interpretation Reference Ran Tho [email or web address] Allergies, adverse reactions, alerts No known allergies and adverse reactions Medications No administered medications reported Vital Signs No vital signs reported Social History No smoking Hx information available
--- NOTE | 2024-10-30 09:16 | MHC.OFFVIS ---
Vital Signs 10/30/24 09:17 Height 6 ft Weight 211 lb 10.3 oz BMI 28.7 BP 120/68 Blood Pressure Location Lt brachial Position Sitting Pulse 59 Pulse Source Monitor Intake Visit Reasons: 4 week f/u Allergies No Known Allergies (No Known Allergies*) Allergy (Verified 10/16/24 19:40) Medication List - Last Reconciled 10/30/24 by Manas Rutledge MD albuterol sulfate 90 mcg/actuation (Ventolin HFA) 2 puffs inhalation Q4H PRN atorvastatin 80 mg PO DAILY cilostazol 50 mg PO BID clonazepam 0.5 mg PO DAILY PRN dextroamphetamine-amphetamine 7.5 mg 1 tab PO DAILY docusate sodium 100 mg PO DAILY doxycycline monohydrate 100 mg PO Q12H dronedarone (Multaq) 400 mg PO BID furosemide 20 mg PO DAILY gabapentin 300 mg PO BEDTIME hydralazine 25 mg PO BID 30 days lidocaine 4% (Lidocaine Pain Relief) 1 patch See Protocol transdermal DAILY magnesium oxide 800 mg (2 x 400 mg (241.3 mg magnesium)) PO DAILY melatonin 3 mg PO BEDTIME PRN metoprolol tartrate 12.5 mg PO BID oxycodone 5 mg PO Q6H PRN polyethylene glycol 3350 17 grams PO BEDTIME 30 days potassium chloride ER 10 mEq PO DAILY rivastigmine tartrate 1.5 mg PO BID sertraline 50 mg PO DAILY tamsulosin 0.4 mg PO DAILY HPI Comments Details: Alex returns for follow-up regarding many cardiac issues. History of coronary disease and he underwent previous LAD stenting few years back. History of atrial flutter. Congestive heart failure. Peripheral vascular disease. He has had several admissions recently. Most recently, it appears that he was admitted both at [facility] as well as [facility] for large right-sided perinephric hematoma. That led to anemia and after the Eliquis was stopped. Otherwise, he seems to be generally doing okay otherwise without any overt cardiac symptoms. [facility] Medical History (Updated 10/30/24 @ 12:31 by Manas Rutledge MD) Paroxysmal atrial flutter Renal hematoma Orthostatic lightheadedness QT prolongation Cardiac arrhythmia CHF (congestive heart failure) Acute dyspnea Glenoid fracture of shoulder Closed left scapular fracture Dislocation of left glenohumeral joint Shoulder pain, left Paroxysmal atrial fibrillation Preoperative cardiovascular examination Coronary artery disease Hypersomnia Snoring Neuropathy Atherosclerotic cardiovascular disease History of alcohol abuse History of COVID-19 On beta jose at home COPD (chronic obstructive pulmonary disease) On anticoagulant therapy History of atrial fibrillation PVD (peripheral vascular disease) Renal cell carcinoma Hypertension Depression Anxiety Diverticulitis Surgical History (Updated 09/22/24 @ 00:01 by Scott Azar) History of intestinal surgery History of kidney surgery H/O cardiac catheterization History of colectomy S/P femoral-femoral bypass surgery Social History Household Members: Other Household Members Other:: girlfriend Housing: House Are you a primary assisted living care manager to a significant other at home: No Do you presently have visiting nurse or other home services: Yes Alcohol intake: former Patient Tobacco Use Status: Former Tobacco user Tobacco use type: Cigarette Second Hand Smoke Exposure: No Substance Use Type: Marijuana Advance Directives Date on File: 06/09/21 service: No Current occupational status: retired Current occupation: right hand dominant Review of Systems Const Denies weakness ENT Denies dizziness Card Denies chest pain, Denies chest pain with activity, Denies syncope, Denies rapid heart rate, Denies pedal edema, Denies edema, Denies leg edema, Denies lightheadedness, Denies palpitations, Denies dyspnea, Denies dyspnea on exertion and Denies orthopnea Resp Denies cough, Denies dyspnea and Denies dyspnea on exertion GI Denies hematochezia and Denies change in stool character Musc Denies abnormal gait, Denies muscle cramps, Denies muscle weakness, Denies numbness, Denies radiating pain into limb and Denies tingling Neuro Denies abnormal gait, Denies dizziness, Denies syncope, Denies numbness, Denies tingling and Denies weakness Endo Denies palpitations Physical Exam Vital Signs: Last Vital Signs Pulse 59 10/30/24 09:17 BP 120/68 10/30/24 09:17 BMI result Body Mass Index 28.7 Const General: comfortable and no acute distress Orientation/consciousness: patient oriented x3 HEENT Other: Unremarkable Head: Yes normal to inspection Neck Neck: Yes normal visual inspection Chest Chest palpation & inspection: normal inspection of the chest Resp Auscultation: clear to auscultation bilaterally Cardio Palpation: normal PMI Heart sounds: S1 normal heart sound present, S2 normal heart sound present, no gallops, no murmurs and no rubs GI Palpation (GI): Soft to palpation Back/Spine/Pelvis Other: unremarkable Skin General skin exam: no rashes or lesions noted Neuro General: patient oriented x3 Extrem General: Yes normal to inspection Psych Mental Status: mental status grossly normal Office Procedures EKG Details: EKG with sinus bradycardia at 59/Min; cannot exclude old septal infarct; [place] [id number]-[id number], Complete Assessment & Plan Assessment & Plan (1) Paroxysmal atrial flutter: Code(s): I48.92 - Unspecified atrial flutter Category: Medical Plan: Not entirely clear if he has atrial flutter or if he has any SVT type episodes. He is maintained on Multaq. Off anticoagulation because of the perinephric hematoma. Referred to [facility] EP for EP study/ablation. Possibly just use short-term anticoagulation with the ablation and then stopped. If indeed he gets any atrial fibrillation, then we can reassess. Watchman may also be consideration then. (2) Atherosclerotic cardiovascular disease: Code(s): I25.10 - Atherosclerotic heart disease of [place] coronary artery without angina pectoris Category: Medical Plan: Cardiac catheterization 2022- Prox LAD with 60% stenosis. First diagonal with ostial 100% stenosis. Circumflex with luminal irregularities. Nonobstructive disease in the RCA. s/p proximal LAD RUBIN. He can take some aspirin. Continue statins. (3) Ascending aortic aneurysm: Code(s): I71.2 - Thoracic aortic aneurysm, without rupture Category: Medical Plan: In the recent chest CT, ascending aortic size 4.7 cm. In the CTA from 2023, again 4.7 cm. We will need to be followed (4) Renal hematoma: Code(s): S37.019A - Minor contusion of unspecified kidney, initial encounter Category: Medical Plan: Off Eliquis. Plan Discussion Notes I discussed with the patient the potential for an ablation procedure to manage his heart rhythm problems, explaining that this could reduce the need for long-term anticoagulation therapy. We reviewed the risks and benefits of the procedure, including the possibility of avoiding long-term anticoagulation if successful. I advised the patient to avoid situations that could lead to falls, given his history of falls and the associated risks. Patient was informed and verbally consented to the use of an ambient scribe for clinic note documentation during this visit. Total time spent including review of other hospital records, counseling, documentation, coordination of care with EP-60 minutes. Discussed with Ame, who accompanied him. Orders: Referrals Cardiac Electrophysiology Referral I47.10 - Supraventricular tachycardia, unspecified, I48.92 - Unspecified atrial flutter Patient Instructions: - Avoid situations that may lead to falls. - Follow up with the paper baler for evaluation and potential ablation procedure. - Understand the risks and benefits of the ablation procedure. Coding Level of Care Code Est Pt Level 5 (59423) Complex EM visit Add On G2211 Diagnoses Paroxysmal atrial flutter I48.92 Atherosclerotic cardiovascular disease I25.10 Ascending aortic aneurysm I71.2 Renal hematoma S37.019A CPT Codes EKG - CPT: 31350-Towaxjtvubfsevzeb, Complete ([id number])
[2024-10-30 09:17] VITALS: BP 120/68; PULSE 59; BMI 28.7
== END 2024-10-30 09:49 | disposition home or self-care (01) ==
LOC: HO.HCS 09:04
PROVIDERS: PCP Internal Medicine; Visit Provider Internal Medicine
DX: I48.92 Unspecified atrial flutter (principal); I25.10 Atherosclerotic heart disease of native coronary artery without angina pectoris; I71.21 Aneurysm of the ascending aorta, without rupture; S37.011A Minor contusion of right kidney, initial encounter; R94.31 Abnormal electrocardiogram [ECG] [EKG]
CPT/HCPCS: 93010; 99215; G2211

== ENCOUNTER → 2024-10-30 09:03 | Outpatient (BNVA) | payer MEDICARE, MEDICAID, SELFPAY | PROVIDERS: PCP Internal Medicine; Visit Provider Internal Medicine | DX: I25.10 Atherosclerotic heart disease of native coronary artery without angina pectoris (principal); I47.10 Supraventricular tachycardia, unspecified; I48.92 Unspecified atrial flutter; I71.20 Thoracic aortic aneurysm, without rupture, unspecified; S37.019A Minor contusion of unspecified kidney, initial encounter | CPT/HCPCS: 93005; 99212 ==

== ENCOUNTER 2024-11-21 14:30 | Outpatient (REF) | payer MEDICARE, MEDICAID, SELFPAY ==
--- NOTE | ~2024-11-21 | XR_ITS ---
EXAMINATION: XR SHOULDER, LEFT CLINICAL INFORMATION: M25.512 - Pain in left shoulder COMPARISON: None available. TECHNIQUE: Three views of the left shoulder. FINDINGS: There is evidence of subchondral collapse involving the central and superior lateral humeral head, this could be posttraumatic or related to AVN. Severe degenerative changes are evident in the glenoid. There is concavity of the central and superior lateral humeral head with adjacent sclerosis. There is no dislocation on the axillary view. There is a large central glenoid degenerative cyst and peripheral sclerosis. There is focal calcific density in the axilla. XR/XR shoulder LT min 2V IMPRESSION: Severe degenerative changes of glenoid. Chronic fracture is not ruled out. Subchondral collapse of the humeral head could be related to trauma or AVN. Focal calcific density in the axilla could represent an intra-articular body, calcified lymph node, or other soft tissue calcification. Electronically signed by: Alex Oneal MD 11/21/2024 03:33 PM EDT RP
== END 2024-11-21 14:31 | disposition home or self-care (01) ==
LOC: HO.HOSX 14:30
PROVIDERS: PCP Internal Medicine; Visit Provider Physician Assistant
DX: S42.92XA Fracture of left shoulder girdle, part unspecified, initial encounter for closed fracture (principal); M25.512 Pain in left shoulder; M19.012 Primary osteoarthritis, left shoulder; Z79.899 Other long term (current) drug therapy; Z98.890 Other specified postprocedural states; Z79.891 Long term (current) use of opiate analgesic
CPT/HCPCS: 20610; 73030; 99212; J1010; J2003

== ENCOUNTER 2024-11-21 14:30 | Outpatient (AMB) | payer MEDICARE, MEDICAID, SELFPAY ==
--- NOTE | 2024-11-21 14:33 | A.OFFVIS_ITS ---
Vital Signs 11/21/24 14:40 Height 6 ft Weight 211 lb BMI 28.6 Intake Visit Reasons: OV - Left Shoulder Pain Intake Note: Alex is a 79 year old right hand dominant male who presents today for a follow up status post left shoulder reduction & bankhart repair, DOS: 06/21/[address] Kothari. Patient reports ongoing soreness in his shoulder, states his shoulder is higher than his right side. He was attending physical therapy through [facility] and was performing inappropriate exercises that increased his pain. He mentions that he was in and out of the hospital for other medical conditions. Allergies No Known Allergies (No Known Allergies*) Allergy (Verified 11/21/24 14:43) Medication List - Last Reconciled 11/21/24 by Augusta Klein PA-C albuterol sulfate 90 mcg/actuation (Ventolin HFA) 2 puffs inhalation Q4H PRN atorvastatin 80 mg PO DAILY cilostazol 50 mg PO BID clonazepam 0.5 mg PO DAILY PRN dextroamphetamine-amphetamine 7.5 mg 1 tab PO DAILY docusate sodium 100 mg PO DAILY doxycycline monohydrate 100 mg PO Q12H dronedarone (Multaq) 400 mg PO BID furosemide 20 mg PO DAILY gabapentin 300 mg PO BEDTIME hydralazine 25 mg PO BID lidocaine 4% (Lidocaine Pain Relief) 1 patch See Protocol transdermal DAILY magnesium oxide 800 mg (2 x 400 mg (241.3 mg magnesium)) PO DAILY melatonin 3 mg PO BEDTIME PRN metoprolol tartrate 12.5 mg PO BID oxycodone 5 mg PO Q6H PRN polyethylene glycol 3350 17 grams PO BEDTIME 30 days potassium chloride ER 10 mEq PO DAILY rivastigmine tartrate 1.5 mg PO BID sertraline 50 mg PO DAILY tamsulosin 0.4 mg PO DAILY HPI HPI OV - Left Shoulder Pain: Details: 79-year-old gentleman returns to the office today for a follow-up left shoulder status post open reduction internal fixation Bankart repair with Dr. Kothari 06/21/2024. The patient completed 2 sessions of physical therapy and continues to have discomfort with lifting and reaching. States his motion is limited to shoulder height. He can not get above shoulder height. Pain is limiting his functional ability. [facility] Medical History (Updated 11/21/24 @ 15:46 by Augusta Klein PA-C) Paroxysmal atrial flutter Renal hematoma Orthostatic lightheadedness QT prolongation Cardiac arrhythmia CHF (congestive heart failure) Acute dyspnea Glenoid fracture of shoulder Closed left scapular fracture Dislocation of left glenohumeral joint Shoulder pain, left Paroxysmal atrial fibrillation Preoperative cardiovascular examination Coronary artery disease Hypersomnia Snoring Neuropathy Atherosclerotic cardiovascular disease History of alcohol abuse History of COVID-19 On beta jose at home COPD (chronic obstructive pulmonary disease) On anticoagulant therapy History of atrial fibrillation PVD (peripheral vascular disease) Renal cell carcinoma Hypertension Depression Anxiety Diverticulitis Surgical History History of intestinal surgery History of kidney surgery H/O cardiac catheterization History of colectomy S/P femoral-femoral bypass surgery Social History Household Members: Other Household Members Other:: girlfriend Housing: House Are you a primary home care associate to a significant other at home: No Do you presently have visiting nurse or other home services: Yes Alcohol intake: former Patient Tobacco Use Status: Former Tobacco user Tobacco use type: Cigarette Second Hand Smoke Exposure: No Substance Use Type: Marijuana Advance Directives Date on File: 06/09/21 service: No Current occupational status: retired Current occupation: right hand dominant Review of Systems Const All systems reviewed & are unremarkable except as noted in HPI and below Physical Exam Vital Signs: BMI result Body Mass Index 28.6 Extrem Other: Left shoulder is normal to inspection. Forward flexion to 90 degrees. Abduction to 45. Significant weakness with rotator cuff strength testing. Office Procedures AMB Joint Injection/Aspiration Joint Injection/Aspiration Primary Site: left shoulder Prep: site was prepped using aseptic technique, ethochloride spray was applied and injection warnings given Injected: 80 mg of, DepoMedrol, with 8 mL of, 1% plain lidocaine and in the subcromial space Approach Used: posterolateral Coding 55405 - Glenohumeral/Tronchanteric Bursa/Intraarticular Procedure code (CPT) selection complete Results Reviewed Results Reviewed: X-rays of the left shoulder obtained in the office today and reviewed by me show intact glenohumeral joint. There is some posttraumatic arthritic changes and callus formation Assessment & Plan Assessment & Plan (1) Fracture dislocation of left shoulder joint: Code(s): S42.92XA - Fracture of left shoulder girdle, part unspecified, initial encounter for closed fracture Category: Medical (2) Osteoarthritis of left shoulder: Code(s): M19.012 - Primary osteoarthritis, left shoulder Category: Medical Plan We discussed options today which includes continued physical therapy for scapular stabilization and range of motion along with rotator cuff strengthening. For his pain I did offer him a left shoulder injection which the patient did consent to and tolerated well. I explained to the patient he likely has some rotator cuff pathology from his injury which is contributing to his decreased function. Surgical intervention for this would include a shoulder arthroplasty she has a rather large and involved surgery which she is not interested in. Also, surgical intervention of this nature would not likely improve his motion to the extent he was prior to injury. My hope since the injection will help with his pain and allow him to progress with physical therapy so he is more functional. If there is any concerns or questions going forward he can contact our office otherwise he will follow up as needed. He can have the injections every 3-6 months as needed. Orders: Orders PT Evaluation and Treatment 11/21/24 M19.012 - Primary osteoarthritis, left shoulder, S42.92XA - Fracture of left shoulder girdle, part unspecified, initial encounter for closed fracture XR shoulder LT min 2V 11/21/24 M25.512 - Pain in left shoulder Coding Level of Care Code Est Pt Level 3 (07152) Complex EM visit Add On G2211 Diagnoses Fracture dislocation of left shoulder joint S42.92XA Osteoarthritis of left shoulder M19.012 CPT Codes Coding - Joint 7: 49417 - Glenohumeral/Tronchanteric Bursa/Intraarticular ([id number])
[2024-11-21 14:40] VITALS: BMI 28.6
--- OUTSIDE RECORDS SUMMARY | 2024-11-21 14:41 | XMS_ITS | Clinical Summary ---
Author Organization [facility] Address [address] [place] [phone] Phone Care Team Providers Care Equipment Validation Engineer Name Role Phone Sesar Pereyra MD Primary Care Provider [phone] Allergies No known active allergies Medications albuterol [...] by mouth 2 times daily. 5 Active sertraline (ZOLOFT) 50 mg tablet Take [...] not crush or chew. 30 each 5 Active Active Problems Problem Noted Date Diagnosed Date Renal hematoma, right 10/08/2024 Encounters Date Type Department Care Team Description 10/08/2024 10:07 AM EDT - 10/10/2024 1:43 PM EDT Hospital Encounter [facility] [address] [place] [address] Ji Crow DO Bukalo, Nermina, MD Seralathan, Manikandan, MD Hematoma of right kidney, subsequent encounter (Primary Dx) Discharge Disposition: Home-Health Care [facility] from Last 3 Months Surgical History Surgery Date Site/Laterality Comments VASECTOMY PROCEDURE: [place] VASECTOMY UNI/BI SPX W/POSTOP SEMEN EXAMS NASAL SEPTUM SURGERY PROCEDURE: [place] SEPTOPLASTY/SUBMUCOUS RESECJ W/WO CARTILAGE GRF; COMMENT: septoplasty HERNIA REPAIR 1997 - 05/05, PROCEDURE: LAPAROSCOPY, INGUINAL HERNIA REPAIR OTHER SURGICAL HISTORY 02/03 PROCEDURE: STENT, NON-COR, TEM W/O DEL; COMMENT: RIGHT EXTERNAL ILIAC ARTERY OTHER SURGICAL HISTORY PROCEDURE: KY COLOSTOMY/SKIN LEVEL CECOSTOMY; COMMENT: AND COLECTOMY FOR DIVERTICULITIS OTHER SURGICAL HISTORY PROCEDURE: KY RENAL NDSC NEPHROS/PYELOSTOMY RESCJ TUMOR; COMMENT: 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 INCISIONAL HERNIA REPAIR 2008 PROCEDURE: KY IMPLANT MESH OPN HERNIA RPR/DEBRIDEMENT CLOSURE OTHER SURGICAL HISTORY 2006 approx PROCEDURE: KY BYP OTH/THN VEIN FEM-ANT TIBL PST TIBL/PRONEAL; COMMENT: left: fem- fem bypass COLONOSCOPY 05/17/2006 PROCEDURE: HISTORICAL COLONOSCOPY; COMMENT: diverticulosis; repeat in 10 yrs COLONOSCOPY W/ POLYPECTOMY 03/22/2017 PROCEDURE: KY COLSC FLX W/RMVL OF TUMOR POLYP LESION [...] DX:I mpotence of organic origin Atherosclerosis of [place] ar teries of the extremities with intermittent claudication DX:Atherosclerosis of [place] arteries of the extremities with intermittent claudication; [...] Diverticulitis Daughter Alive Healthy? Father (Age 49) AL x 3, ET [place] Maternal Grandfather (Age 74) Pn e[place] Maternal Grandmother [place] Mother (Age 73) UTI, CVA Other Paternal [...] 10/08/2024 10:53 AM EDT Plan of Treatment Health Maintenance Due Date Last Done Comments Hepatitis A Vaccines (1 of 2 - Risk 2-dose series) 1964 RSV Immunization Adult Patients (1 - 1-dose 75+ series) 2022 Colorectal Cancer Screening: Colonoscopy 04/09/2022 Hepatitis C Screening 04/09/2022 Medicare Annual Wellness Visit 04/09/2022 Social Influencers of Health Screening 04/09/2022 Depression Screening 05/01/2024 COVID-19 Vaccine (8 - Pfizer risk 2023- season) 2024 02/22/2024, 03/15/2023, 02/02/2022, Additional history exists Influenza Vaccine (#1) 2024 , 03/15/2023, 03/01/2022, Additional history exists Falls Risk Assessment 10/10/2025 10/10/2024 Hypertension/CHF/CAD Annual [...] K/mcL LAB HEMETOLOGY METHOD 10/10/2024 7:08 AM [facility] RBC 2.80(L) 4.50 - 5.50 M/mcL LAB HEMETOLOGY METHOD 10/10/2024 7:08 AM [facility] Hemoglobin 8.6(L) 13.5 - 17.5 g/dL LAB HEMETOLOGY METHOD 10/10/2024 7:08 AM [facility] Hematocrit 27.0(L) 42.0 - 54.0 % LAB HEMETOLOGY METHOD 10/10/2024 7:08 AM [facility] MCV 97.1 79.0 - 98.0 FL LAB HEMETOLOGY METHOD 10/10/2024 7:08 AM [facility] MCH 30.9 27.0 - 32.0 pcg LAB HEMETOLOGY METHOD 10/10/2024 7:08 AM [facility] MCHC 31.9(L) 32.0 - 37.0 g/dL LAB HEMETOLOGY METHOD 10/10/2024 7:08 AM [facility] RDW 16.9(H) 11.0 - 15.0 % LAB HEMETOLOGY METHOD 10/10/2024 7:08 AM [facility] Platelets 434(H) 130 - 400 K/mcL LAB HEMETOLOGY METHOD 10/10/2024 7:08 AM [facility] MPV 9.8 7.0 - 11.0 FL LAB HEMETOLOGY METHOD 10/10/2024 7:08 AM [facility] NRBC 0.0 <1.0 % LAB HEMETOLOGY METHOD 10/10/2024 7:08 AM [facility] NRBC Absolute 0.00 <0.10 K/mcL LAB HEMETOLOGY METHOD 10/10/2024 7:08 AM [facility] Neutrophils Relative 85.0 % LAB HEMETOLOGY METHOD 10/10/2024 7:08 AM [facility] Lymphocytes Relative 6.4 % LAB HEMETOLOGY METHOD 10/10/2024 7:08 AM [facility] Monocytes Relative 7.3 % LAB HEMETOLOGY METHOD 10/10/2024 7:08 AM [facility] Eosinophils Relative 0.7 % LAB HEMETOLOGY METHOD 10/10/2024 7:08 AM [facility] Basophils Relative 0.3 % LAB HEMETOLOGY METHOD 10/10/2024 7:08 AM [facility] Immature Granulocytes Relative 0.3 % LAB HEMETOLOGY METHOD 10/10/2024 7:08 AM [facility] Neutrophils Absolute 9.80(H) 1.50 - 7.00 K/mcL LAB HEMETOLOGY METHOD 10/10/2024 7:08 AM EDT [facility] Lymphocytes Absolute 0.74(L) 1.00 - 5.00 K/[facility] LAB HEMETOLOGY METHOD 10/10/2024 7:08 AM EDT [facility] Monocytes Absolute 0.84 0.20 - 1.00 K/[facility] LAB HEMETOLOGY METHOD 10/10/2024 7:08 AM EDT [facility] Eosinophils Absolute 0.08 0.00 - 0.50 K/[facility] LAB HEMETOLOGY METHOD 10/10/2024 7:08 AM EDT [facility] Basophils Absolute 0.03 0.00 - 0.20 K/[facility] LAB HEMETOLOGY METHOD 10/10/2024 7:08 AM EDT [facility] Immature Granulocytes Absolute 0.04(H) 0.00 - 0.03 K/[facility] LAB HEMETOLOGY METHOD 10/10/2024 7:08 AM EDT [facility] Blood Venous blood specimen / Unknown 10/10/2024 6:28 AM EDT 10/10/2024 6:54 AM EDT us Audrey Tavera NP LAB BLOOD ORDERABLES Final Resul t [facility] [address] [place] [address], * (ABNORMAL) Magnesium (10/10/2024 6:28 AM EDT) Only the most recent of2 resultswithin the time period is included. Magnesium 1.8(L) 1.9 - 2.6 mg/dL LAB CHEMISTRY METHOD 10/10/2024 7:44 AM EDT [facility] Blood Venous blood specimen / Unknown Venipuncture / Unknown 10/10/2024 6:28 AM EDT 10/10/2024 6:53 AM EDT us Audrey Tavera NP LAB BLOOD ORDERABLES Final Resul t Performing Organization Address [facility]/ZIP Co de Phone Number [facility] [address] [place] [address], [place] [phone] * (ABNORMAL) Hepatic function panel (10/10/2024 6:28 AM EDT) Total Protein 5.2(L) 6.0 - 8.0 g/dL LAB CHEMISTRY METHOD 10/10/2024 7:44 AM EDT [facility] Albumin 2.4(L) 3.2 - 5.0 g/dL LAB CHEMISTRY METHOD 10/10/2024 7:44 AM EDT [facility] Total Bilirubin 1.6(H) 0.0 - 1.4 mg/dL LAB CHEMISTRY METHOD 10/10/2024 7:44 AM [facility] Bilirubin, Direct 0.6(H) 0.0 - 0.3 mg/dL LAB CHEMISTRY METHOD 10/10/2024 7:44 AM EDT [facility] Bilirubin, Indirect 1.0 0.0 - 1.1 mg/dL LAB CHEMISTRY METHOD 10/10/2024 7:44 AM EDT [facility] ALT (SGPT) 99(H) 10 - 60 unit/L LAB CHEMISTRY METHOD 10/10/2024 7:44 AM [facility] AST (SGOT) 108(H) 10 - 42 unit/L LAB CHEMISTRY METHOD 10/10/2024 7:44 AM EDT [facility] Alkaline Phosphatase 144(H) 42 - 121 unit/L LAB CHEMISTRY METHOD 10/10/2024 7:44 AM T [facility] Blood Venous blood specimen / Unknown Venipuncture / Unknown 10/10/2024 6:28 AM EDT 10/10/2024 6:53 AM EDT us Audrey Tavera NP LAB BLOOD ORDERABLES Final Resul t [facility] [address] [place] [address], * (ABNORMAL) Basic metabolic panel (10/10/2024 6:28 AM EDT) Only the most recent of2 resultswithin the time period is included. Sodium 138 133 - 145 mmol/L LAB CHEMISTRY METHOD 10/10/2024 7:44 AM [facility] Potassium 3.7 3.5 - 5.5 mmol/L LAB CHEMISTRY METHOD 10/10/2024 7:44 AM [facility] Chloride 104 96 - 110 mmol/L LAB CHEMISTRY METHOD 10/10/2024 7:44 AM [facility] CO2 27 21 - 32 mmol/L LAB CHEMISTRY METHOD 10/10/2024 7:44 AM [facility] Anion Gap 7 3 - 11 LAB CHEMISTRY METHOD 10/10/2024 7:44 AM [facility] Glucose 98 70 - 100 mg/dL LAB CHEMISTRY METHOD 10/10/2024 7:44 AM [facility] BUN 15 5 - 25 mg/dL LAB CHEMISTRY METHOD 10/10/2024 7:44 AM [facility] Creatinine 1.03 0.70 - 1.30 mg/dL LAB CHEMISTRY METHOD 10/10/2024 7:44 AM [facility] eGFR 75 >=60 mL/min/1. 73m2 LAB CHEMISTRY METHOD 10/10/2024 7:44 AM [facility] Comment:Calculation based on the Chronic Kidney Disease Epidemiology Collaboration (CKD-EPI) equation refit without adjustment for race. BUN/Creatinine Ratio 14.6 LAB CHEMISTRY METHOD 10/10/2024 7:44 AM [facility] Calcium 8.2(L) 8.5 - 10.5 mg/dL LAB CHEMISTRY METHOD 10/10/2024 7:44 AM EDT [facility] Blood Venous blood specimen / Unknown Venipuncture / Unknown 10/10/2024 6:28 AM EDT 10/10/2024 6:53 AM EDT Audrey Tavera NP LAB BLOOD ORDERABLES Final Resul t Performing Organization Address [facility] Co de Phone Number [facility] [address] [place] [address], [place] [phone] * (ABNORMAL) Hemoglobin and hematocrit (10/09/2024 10:47 PM EDT) Only the most recent of4 resultswithin the time period is included. Hemoglobin 9.0(L) 13.5 - 17.5 g/dL LAB HEMETOLOGY METHOD 10/09/2024 11:13 PM EDT [facility] Hematocrit 29.2(L) 42.0 - 54.0 % LAB HEMETOLOGY METHOD 10/09/2024 11:13 PM EDT [facility] Blood Venous blood specimen / Unknown Venipuncture / Unknown 10/09/2024 10:47 PM EDT 10/09/2024 11:08 PM EDT Audrey Tavera NP LAB BLOOD ORDERABLES Final Resul t Performing Organization Address [facility] Co de Phone Number [facility] [address] [place] [address], [place] [phone] * (ABNORMAL) Complete blood count (10/09/2024 6:30 AM EDT) WBC 9.5 4.8 - 10.8 K/mcL LAB HEMETOLOGY METHOD 10/09/2024 7:54 AM EDT [facility] RBC 2.70(L) 4.50 - 5.50 M/mcL LAB HEMETOLOGY METHOD 10/09/2024 7:54 AM EDT [facility] Hemoglobin 8.3(L) 13.5 - 17.5 g/dL LAB HEMETOLOGY METHOD 10/09/2024 7:54 AM [facility] Hematocrit 26.7(L) 42.0 - 54.0 % LAB HEMETOLOGY METHOD 10/09/2024 7:54 AM [facility] MCV 98.2(H) 79.0 - 98.0 FL LAB HEMETOLOGY METHOD 10/09/2024 7[facility] MCH 30.5 27.0 - 32.0 pcg LAB HEMETOLOGY METHOD 10/09/2024 7:54 AM [facility] MCHC 31.1(L) 32.0 - 37.0 g/dL LAB HEMETOLOGY METHOD 10/09/2024 7:54 AM [facility] RDW 16.9(H) 11.0 - 15.0 % LAB HEMETOLOGY METHOD 10/09/2024 7:54 AM [facility] Platelets 408(H) 130 - 400 K/mcL LAB HEMETOLOGY METHOD 10/09/2024 7:54 AM [facility] MPV 9.9 7.0 - 11.0 FL LAB HEMETOLOGY METHOD 10/09/2024 7:54 AM [facility] NRBC 0.0 <1.0 % LAB HEMETOLOGY METHOD 10/09/2024 7:54 AM [facility] NRBC Absolute 0.00 <0.10 K/mcL LAB HEMETOLOGY METHOD 10/09/2024 7:54 AM [facility] Blood Venous blood specimen / Unknown Venipuncture / Unknown 10/09/2024 6:30 AM EDT 10/09/2024 7:13 AM EDT us Alexi Patel MD LAB BLOOD ORDERABLES Final Res ult Performing Organization Address City/[facility]/ZIP Co de Phone Number [facility] [address] [place] [address], [place] [phone] * ECG 12 lead (10/09/2024 5:44 AM EDT) Only the most recent of3 resultswithin the time period is included. Ventricular Rate ECG 131 BPM GEMUSE Atrial Rate 78 BPM GEMUSE QRS Duration 84 ms GEMUSE Q-T Interval 348 ms GEMUSE QTc 513 ms GEMUSE T [place] 25 degrees GEMUSE ECG Interpretation Supraventricular tachycardia Septal infarct , age undetermined Abnormal ECG When compared with ECG of 08-OCT-2024 12:06, Supraventricular tachycardia has replaced Atrial flutter Vent. rate has increased BY [address] now depressed in Lateral leads Nonspecific T wave abnormality, worse in Inferior leads Confirmed by Tasha RUIZ JOHN ([id number]) on 10/09/2024 9:11:18 PM GEMUSE 10/09/2024 5:44 AM EDT 10/09/2024 9:11 PM EDT us Alexi Patel MD ECG ORDERABLES Final Result Performing Organization Address [facility] Co de Phone Number GEMUSE * US Extremity Nonvascular Limited Right [...] Signed Date: 10/08/2024 15:49 ET Workstation ID: [id number] Transcribed By: Self Edit Transcribed Date: 10/08/2024 [...] Signed Date: 10/08/2024 15:49 ET Workstation ID: [id number] Transcribed By: Self Edit Transcribed Date: 10/08/2024 15:41 ET us Modesta YUN IMG US PROCEDURES Final Result * US Abdomen [...] Signed Date: 10/08/2024 15:01 ET Workstation ID: [id number] Transcribed By: Self Edit Transcribed Date: 10/08/2024 [...] Signed Date: 10/08/2024 15:01 ET Workstation ID: [id number] Transcribed By: Self Edit Transcribed Date: 10/08/2024 14:50 ET us Modesta YUN IMG US PROCEDURES Final Result * Troponin I high sensitivity (10/08/2024 12:02 PM EDT) Only the most recent of2 resultswithin the time period is included. High Sensitivity Troponin I 22 <=79 ng/L LAB CHEMISTRY METHOD 10/08/2024 1:10 PM EDT [facility] Blood Venous blood specimen / Unknown Venipuncture / Unknown 10/08/2024 12:02 PM EDT 10/08/2024 12:35 PM EDT Narrative [facility] - 10/08/2024 1:10 PM EDT High levels of biotin in samples may falsely decrease hsTroponin values. Use caution when interpreting hsTroponin results in patients taking biotin who exhibit renal impairment (eGFR <60) or in patients taking more than 20 mg/day of biotin. us Alexi Patel MD LAB BLOOD ORDERABLES Final Res ult [facility] [address] [place] [address], [place] [phone] * CT Abdomen Pelvis wo Contrast (10/08/2024 10:43 AM EDT) Anatomical Region Laterality Modality Body Computed Tomogra phy 10/08/2024 10:5 2 AM EDT Impressions 10/08/2024 11:04 AM EDT Impression: 1. Large right renal/perinephric hematoma, with extensive hemorrhagic fat stranding in the right perinephric space. 2. Cholelithiasis. No evidence of acute cholecystitis or biliary obstruction. 3. Small complex right pleural effusion. [employer] [place] ([id number]) -------- FINAL REPORT -------- Dictated By: Ericka Taylor Dictated Date: 10/08/2024 10:52 ET Assigned Physician: Ericka Taylor Reviewed and Electronically Signed By: Ericka Taylor Signed Date: 10/08/2024 11:04 ET Workstation ID: [id number] Transcribed By: Self Edit Transcribed Date: 10/08/2024 [...] intravenous or oral contrast. DLP: 1848.22 mGy/cm Phone Warriorer Iterative reconstruction technique Findings: A hyperdense 12 [...] intravenous or oral contrast. DLP: 1848.22 mGy/cm Phone Warriorer Iterative reconstruction technique Findings: A hyperdense 12 [...] biliaryobstruction. 3. Small complex right pleural effusion. [address] ([id number]) -------- FINAL REPORT -------- Dictated By: Ericka Taylor Dictated Date: 10/08/2024 10:52 ET Assigned Physician: Ericka Taylor Reviewed and Electronically Signed By: Ericka Taylor Signed Date: 10/08/2024 11:04 ET Workstation ID: [id number] Transcribed By: Self Edit Transcribed Date: 10/08/2024 10:52 ET Ji Crow DO IMG CT PROCEDURES Final Res ult * Prothrombin time with INR (10/08/2024 10:40 AM EDT) Protime 13.9 10.6 - 13.9 sec LAB COAGULATION METHOD 10/08/2024 10:51 AM EDT [facility] INR 1.1 LAB COAGULATION METHOD 10/08/2024 10:51 AM EDT [facility] Blood Venous blood specimen / Unknown Venipuncture / Unknown 10/08/2024 10:40 AM EDT 10/08/2024 10:43 AM EDT Ji Crow DO LAB BLOOD ORDERABLES Final Result [facility] [address] [place] [address], [place] [phone] * Type and screen (10/08/2024 10:33 AM EDT) [facility] ABO Group O 10/08/2024 11:44 AM EDT [facility] Rh Type Positive 10/08/2024 11:44 AM EDT [facility] Antibody Screen Negative 10/08/2024 11:44 AM EDT [facility] Blood Venous blood specimen / Unknown Venipuncture / Unknown 10/08/2024 10:33 AM EDT 10/08/2024 10:43 AM EDT us Ji Crow DO LAB BLOOD BANK TEST ORDERAB LES Final Result Performing Organization Address [facility]/ZIP Co de Phone Number [facility] [address] [place] [address], [place] [phone] * (ABNORMAL) B-type natriuretic peptide (10/08/2024 10:33 AM EDT) [facility] BNP 369(H) <=100 pcg/mL LAB CHEMISTRY METHOD 10/08/2024 11:29 AM EDT [facility] Blood Venous blood specimen / Unknown Venipuncture / Unknown 10/08/2024 10:33 AM EDT 10/08/2024 10:43 AM EDT us Ji Crow DO LAB BLOOD ORDERABLES Final Result Performing Organization Address [facility]/ZIP Co de Phone Number [facility] [address] [place] [address], [place] [phone] * Lipase (10/08/2024 10:33 AM EDT) [facility] Lipase 22 13 - 75 unit/L LAB CHEMISTRY METHOD 10/08/2024 11:24 AM EDT [facility] Blood Venous blood specimen / Unknown Venipuncture / Unknown 10/08/2024 10:33 AM EDT 10/08/2024 10:43 AM EDT Ji Crow DO LAB BLOOD ORDERABLES Final Result Performing Organization Address City/[facility]/ZIP Co de Phone Number [facility] [address] [place] [address], [place] [phone] * Ethanol (10/08/2024 10:33 AM EDT) Ethanol Level <3 0 - 10 mg/dL LAB CHEMISTRY METHOD 10/08/2024 4:53 PM EDT [facility] Blood Venous blood specimen / Unknown Venipuncture / Unknown 10/08/2024 10:33 AM EDT 10/08/2024 10:[address] PA LAB BLOOD ORDERABLES Final Resul t Performing Organization Address [facility]/ZIP Co de Phone Number [facility] [address] [place] [address], [place] [phone] * (ABNORMAL) Comprehensive metabolic panel (10/08/2024 10:33 AM EDT) Sodium 136 133 - 145 mmol/L LAB CHEMISTRY METHOD 10/08/2024 11:24 AM EDT [facility] Potassium 4.6 3.5 - 5.5 mmol/L LAB CHEMISTRY METHOD 10/08/2024 11:24 AM EDT [facility] Chloride 105 96 - 110 mmol/L LAB CHEMISTRY METHOD 10/08/2024 11:24 AM EDT [facility] CO2 24 21 - 32 mmol/L LAB CHEMISTRY METHOD 10/08/2024 11:24 AM EDT [facility] Anion Gap 7 3 - 11 LAB CHEMISTRY METHOD 10/08/2024 11:24 AM [facility] Glucose 107(H) 70 - 100 mg/dL LAB CHEMISTRY METHOD 10/08/2024 11:24 AM [facility] BUN 18 5 - 25 mg/dL LAB CHEMISTRY METHOD 10/08/2024 11:24 AM [facility] Creatinine 1.36(H) 0.70 - 1.30 mg/dL LAB CHEMISTRY METHOD 10/08/2024 11:24 AM [facility] eGFR 54(L) >=60 mL/min/1. 73m2 LAB CHEMISTRY METHOD 10/08/2024 11:24 AM [facility] Comment:Calculation based on the Chronic Kidney Disease Epidemiology Collaboration (CKD-EPI) equation refit without adjustment for race. BUN/Creatinine Ratio 13.2 LAB CHEMISTRY METHOD 10/08/2024 11:24 AM [facility] Calcium 8.5 8.5 - 10.5 mg/dL LAB CHEMISTRY METHOD 10/08/2024 11:24 AM [facility] AST (SGOT) 97(H) 10 - 42 unit/L LAB CHEMISTRY METHOD 10/08/2024 11:24 AM [facility] ALT (SGPT) 118(H) 10 - 60 unit/L LAB CHEMISTRY METHOD 10/08/2024 11:24 AM [facility] Alkaline Phosphatase 146(H) 42 - 121 unit/L LAB CHEMISTRY METHOD 10/08/2024 11:24 AM [facility] Total Protein 5.9(L) 6.0 - 8.0 g/dL LAB CHEMISTRY METHOD 10/08/2024 11:24 AM [facility] Albumin 2.8(L) 3.2 - 5.0 g/dL LAB CHEMISTRY METHOD 10/08/2024 11:24 AM [facility] Total Bilirubin 1.6(H) 0.0 - 1.4 mg/dL LAB CHEMISTRY METHOD 10/08/2024 11:24 AM EDT [facility] Blood Venous blood specimen / Unknown Venipuncture / Unknown 10/08/2024 10:33 AM EDT 10/08/2024 10:43 AM EDT us Ji Crow DO LAB BLOOD ORDERABLES Final Result [facility] [address] [place] [address], [place] [phone] from Last 3 Months Insurance MEDICAID - [place] [employer] MEDICARE ADVANTAGE Advance Directives Documents on File Type Date Recorded Patient Audograph Operator Expl anation Advance Directives and Living Will 10/10/2024 12:09 PM [facility] Proxy * Full Code - Default (Latest [...] Agents on File Name Relationship Healthcare Agent [facility] Communication Ame [facility] Care Agent Care Teams Equipment Validation Engineer Relationship Specialty Start Date End Date Sesar Pereyra MD [address] [place] [id number] PCP - General Internal Medicine 10/08/24
--- OUTSIDE RECORDS SUMMARY | 2024-11-21 14:41 | XMS_ITS | Encounter Summary ---
Author Organization [employer] Address [address] [place] [address] Care Team Providers Care Rate Setter Name Role Phone Sesar Pereyra MD Primary Care Provider [phone] Reason for Visit * Reason Onset Date Comments Med Refill 09/24/2024 Encounter Details Date Type Department Care Team ([facility] st Contact Info) Description 09/24/2024 Refill [facility] [address] [place] [address] Sesar Pereyra MD [address] [place] [address] Dislocation of left ulnohumeral joint, initial encounter [...] Description 12/25/2024 2:00 PM EDT Office Visit [facility] [address] [place] [address] Sesar Pereyra MD [address] [place] [address] documented as of this encounter Visit Diagnoses Diagnosis Dislocation of left ulnohumeral joint, initial encounter documented in this encounter Additional Health Concerns Assessment Noted Time PHQ-9 Depression Total Score: 6 07/25/19 25 3:22 PM EDT documented as of this encounter Care Teams Rate Setter Relationship Specialty Start Date End Date Sesar Pereyra MD [address] [place] [address] PCP - General Internal Medicine [facility]13/24 [facility] 11/14/24 documented as of this encounter
--- OUTSIDE RECORDS SUMMARY | 2024-11-21 14:41 | XMS_ITS | Clinical Summary ---
Author Organization [facility] Address [address] [place] [address] Care Team Providers Care Exhibit Preparator Name Role Phone Nuha Galvin PA-C Primary Care Provider [phone] Source Comments PLEASE NOTE, if this patient [...] Date Sleep disorder 02/02/2015 Overview (02/02/2015): Saw [facility] and sleep on 01/15/2015: Dr. Johnson [...] Sees this doctor once a year at [facility]. Follows up with this facility every 6 months. 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
--- OUTSIDE RECORDS SUMMARY | 2024-11-21 14:41 | XMS_ITS ---
Author Name WILLIE AZEVEDO, [place]. CARRIE LIM Address [address] [address] Phone [phone] Organization [facility] Care Team Providers Care Recordist Name Role Phone CARRIE TAPIA Unavailable [phone] Reason for Referral Not Available Allergies, adverse [...] mplaint [facility] [place], [place], 10/07/2024 Minor contusion of unspecified kidney, initial encounterEncntr for f/u exam aft trtmt for cond oth than malig neoplm [facility] [place], [place], 10/07/2024 Minor contusion of unspecified kidney, initial encounterEncntr for f/u exam aft trtmt for cond oth than malig neoplm Social History Sex Male Gender identity Man History of Procedures Procedures Service Procedure code Service date Servicing provider Phone# [facility] [id number] 2024-10-07 No Data Available No Data Avail able Medrec Completed within 30 Days of Discharge 1111F 2024-10-07 No Data Available No Data Availa ble Functional Status No Information Mental Status No Information Assessments Date of Service Assessments 2024-10-07 07:50:36 Minor contusion of u nspecified kidney, initial encounter Plan of Care Date of Service Plans 2024-10-07 07:50:36 Pt was discharged ho tx. Pt states that he is safe at [...] on. 2024-10-07 Type of Visit: Marcy jack: [facility]Admit Date:09/30/2024Discharge Date: 10/06/2024Discharge diagnosis: MINOR CONTUSION OF UNSPECIFIED KIDNEY, INITIAL ENCOUNTER
== END 2024-11-21 15:37 | disposition home or self-care (01) ==
LOC: HO.HOS 14:31
PROVIDERS: PCP Internal Medicine; Visit Provider Physician Assistant
DX: S42.92XA Fracture of left shoulder girdle, part unspecified, initial encounter for closed fracture (principal); M19.012 Primary osteoarthritis, left shoulder
CPT/HCPCS: 20610; 99213

== ENCOUNTER → 2024-11-21 15:15 | Outpatient (BNV) | payer MEDICARE, MEDICAID, SELFPAY | PROVIDERS: PCP Internal Medicine; Visit Provider Radiology Diagnostic Radiology | DX: M19.012 Primary osteoarthritis, left shoulder (principal) | CPT/HCPCS: 73030 ==

== ENCOUNTER 2024-12-21 10:25 | Outpatient (REF) | payer OTHER, MEDICAID, SELFPAY ==
--- OUTSIDE RECORDS SUMMARY | 2024-12-21 10:28 | XMS_ITS ---
Author Organization [facility] on Care Team Providers Care Lube Attendant Name Role Phone Vaishali Aguilar Unavailable Unavailable Noelle Edwards Unavailable Unavailable Valerie Wayne Unavailable Unavailable Allergies and adverse reactions No Known Allergies Care Team Name Role Address Phone Organization Dates Noelle Edwards PCP [address] [place] [address], [place], [address], [place] (Office): : [facility] 2020 - 02/20/2020 Vaishali Aguilar [address] [place] [address], [address], [place] (Office): : [facility] 2020 - 02/20/2020 Valerie Wayne [address] [place] [address], [address], [place] (Office): [facility] 2020 - 02/20/2020 Immunizations Immunization Status Vaccine Details Vaccine Code CodeSystem Date Notes Influenza completed Influenza, split virus, trivalent, injectable, contains preservative lotNumber: [id number] expiry: 10/28/2020 Mfg: Flucelavax Quadrivalent Given 0.5 ml Left Deltoid intramuscularly 141 CVX created date: 02/18/2020 consent date: 02/18/2020 administer ed date: 02/18/2020 Educated by Saray Saavedra on 02/18/2020 TB 2 Step Mantoux Skin Test completed tuberculin skin test; unspecified formulation lotNumber: [id number] expiry: 11/25/2021 Mfg: sanofi [employer] limited Given [...] CodeSystem Concern Status 1 ANEMIA, UNSPECIFIED [address] active 2 BREAKDOWN (MECHANICAL) OF OTHER VASCULAR GRAFTS, INITIAL ENCOUNTER [address] active 3 CHRONIC KIDNEY DISEASE, STAGE 2 (MILD) [address] active 4 CHRONIC OBSTRUCTIVE PULMONARY DISEASE, UNSPECIFIED [address] active 5 COVID-[address] active 6 ENCOUNTER FOR SURGICAL AFTERCARE FOLLOWING SURGERY ON THE CIRCULATORY SYSTEM [address] active 7 ESSENTIAL (PRIMARY) HYPERTENSION [address] active 8 GENERALIZED ANXIETY DISORDER [address] active 9 MAJOR DEPRESSIVE DISORDER, RECURRENT, UNSPECIFIED [address] active 10 PAROXYSMAL ATRIAL FIBRILLATION [address] active 11 PERIPHERAL VASCULAR DISEASE, UNSPECIFIED [address] active Reason for Referral No Reasons for Referral Entered Social History Social History Observation Description Start Date End Date Code Code System Current Smoking Status Tobacco smoking consumption unknown 812230261 SNOMED CT Sex Assigned At Male 1945 13180-0 LOINC Gender Identity Vital Signs Code Code System Vitals Name Values and Units Timing Information 81650-0 [facility] Pain Level Value=1.0 02/20/2020 9279-1 [facility] Respiratory Rate Value=18.0 Units=/m in 02/20/2020 8462-4 [facility] Blood Pressure-Diastolic Value=60 Un its=mmHg 02/20/2020 8480-6 [facility] Blood Pressure-Systolic Ufmar=091 Un its=mmHg 02/20/2020 8310-5 [facility] Body Temperature Value=97.6 Units= F 02/20/2020 8867-4 [facility] Heart rate Value=73.0 Units=/min 78386-3 [facility] O2 % BldC Oximetry Value=96.0 Units= % 02/20/2020 58439-6 [facility] Weight Ihgmj=501.0 Units=Lbs 8302-2 [facility] Height Value=72.0 Units=Inches 02/12/2020
--- OUTSIDE RECORDS SUMMARY | 2024-12-21 10:28 | XMS_ITS | Encounter Summary ---
Author Organization [employer] Address [address] [facility] [address] [place] [address] Care Team Providers Care Cylinder Worker Name Role Phone Sesar Pereyra MD Primary Care Provider [phone] Reason for Visit * Reason Onset Date Comments Med Refill 09/24/2024 Encounter Details Date Type Department Care Team ([facility] st Contact Info) Description 09/24/2024 Refill [facility] [address] [place] [address] Sesar Pereyra MD [address] [place] [address] Dislocation of left ulnohumeral joint, initial encounter [...] Care Team (Late st Contact Info) Description 01/01/2025 2:00 PM EDT Office Visit [facility] [address] [place] [address] Sesar Pereyra MD [address] [place] [address] 01/23/2025 3:30 PM EDT Office Visit [facility] [address] [place] [address] Sesar Pereyra MD [address] [place] [address] documented as of this encounter Visit Diagnoses Diagnosis Dislocation of left ulnohumeral joint, initial encounter documented in this encounter Additional Health Concerns Assessment Noted Time PHQ-9 Depression Total Score: 6 07/25/19 25 3:22 PM EDT documented as of this encounter Care Teams Cylinder Worker Relationship Specialty Start Date End Date Sesar Pereyra MD [address] [place] [address] PCP - General Internal Medicine 03/01/21 [facility] 03/22/24 11/13/24 [facility] 11/14/24 documented as of this encounter
--- OUTSIDE RECORDS SUMMARY | 2024-12-21 10:28 | XMS_ITS | Clinical Summary ---
Author Organization [facility] Address [address] [place] [address] Care Team Providers Care Math And Science Instructor Name Role Phone Nuha Galvin PA-C Primary [...] Date Sleep disorder 02/02/2015 Overview (02/02/2015): Saw [facility] and sleep on 01/15/2015: Dr. Johnson [...] once a year. In remission Seen at [facility] urology Depression with anxiety 04/01/2014 Overview (04/01/2014): Dr. Pradhan at [facility]. Is going to establish care at a [...] 04/01/2014 Overview (04/01/2014): Sony done 2007 at [facility] Thoracic aneurysm without mention of rupture 06/2013 Overview (03/24/2015): Seen by [facility]. 4.[address] Herbert [...] SAFETY NET MEDICARE - [place] Care Teams Math And Science Instructor Relationship Specialty Start Date End Date Nuha Galvin PA-C [facility] [place] [address] PCP - General 03/21/18
--- OUTSIDE RECORDS SUMMARY | 2024-12-21 10:28 | XMS_ITS | Clinical Summary ---
Author Organization [facility] Address [address] [place] [phone] Phone Care Team Providers Care Channeler Outsole Name Role Phone Sesar Pereyra MD Primary Care Provider [phone] Allergies No known active allergies Medications albuterol [...] - 10/10/2024 1:43 PM EDT Hospital Encounter [facility] [address] [place] [address] Ji Crow DO Bukalo, Nermina, MD Seralathan, Manikandan, MD Hematoma of right kidney, subsequent encounter (Primary Dx) Discharge Disposition: Home-Health Care [facility] [place] from Last 3 Months Surgical History Surgery Date Site/Laterality Comments VASECTOMY PROCEDURE: AR VASECTOMY UNI/BI SPX W/POSTOP SEMEN EXAMS NASAL SEPTUM SURGERY PROCEDURE: AR SEPTOPLASTY/SUBMUCOUS RESECJ W/WO CARTILAGE GRF; COMMENT: septoplasty HERNIA REPAIR 1997 - 05/05, PROCEDURE: LAPAROSCOPY, INGUINAL HERNIA REPAIR OTHER SURGICAL HISTORY 02/03 PROCEDURE: STENT, NON-COR, TEM W/O DEL; COMMENT: RIGHT EXTERNAL ILIAC ARTERY OTHER SURGICAL HISTORY PROCEDURE: AR COLOSTOMY/SKIN LEVEL CECOSTOMY; COMMENT: AND COLECTOMY FOR DIVERTICULITIS OTHER SURGICAL HISTORY PROCEDURE: AR RENAL NDSC NEPHROS/PYELOSTOMY RESCJ TUMOR; COMMENT: 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 INCISIONAL HERNIA REPAIR 2008 PROCEDURE: AR IMPLANT MESH OPN HERNIA RPR/DEBRIDEMENT CLOSURE OTHER SURGICAL HISTORY 2006 approx PROCEDURE: AR BYP OTH/THN VEIN FEM-ANT TIBL PST TIBL/PRONEAL; COMMENT: left: fem- fem bypass COLONOSCOPY 05/17/2006 PROCEDURE: HISTORICAL COLONOSCOPY; COMMENT: diverticulosis; repeat in 10 yrs COLONOSCOPY W/ POLYPECTOMY 03/22/2017 PROCEDURE: AR COLSC FLX W/RMVL OF TUMOR POLYP LESION [...] DX: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 Father (Age 49) PR [...] K/mcL LAB HEMETOLOGY METHOD 10/10/2024 7:08 AM [facility] RBC 2.80(L) 4.50 - 5.50 M/mcL LAB HEMETOLOGY METHOD 10/10/2024 7:08 AM [facility] Hemoglobin 8.6(L) 13.5 - 17.5 g/dL LAB HEMETOLOGY METHOD 10/10/2024 7:08 AM [facility] Hematocrit 27.0(L) 42.0 - 54.0 % LAB HEMETOLOGY METHOD 10/10/2024 7:08 AM [facility] MCV 97.1 79.0 - 98.0 FL LAB HEMETOLOGY METHOD 10/10/2024 7:08 AM [facility] MCH 30.9 27.0 - 32.0 pcg LAB HEMETOLOGY METHOD 10/10/2024 7:08 AM [facility] MCHC 31.9(L) 32.0 - 37.0 g/dL LAB HEMETOLOGY METHOD 10/10/2024 7:08 AM [facility] RDW 16.9(H) 11.0 - 15.0 % LAB HEMETOLOGY METHOD 10/10/2024 7:08 AM [facility] Platelets 434(H) 130 - 400 K/mcL LAB HEMETOLOGY METHOD 10/10/2024 7:08 AM [facility] MPV 9.8 7.0 - 11.0 FL LAB HEMETOLOGY METHOD 10/10/2024 7:08 AM [facility] NRBC 0.0 <1.0 % LAB HEMETOLOGY METHOD 10/10/2024 7:08 AM [facility] NRBC Absolute 0.00 <0.10 K/mcL LAB HEMETOLOGY METHOD 10/10/2024 7:08 AM [facility] Neutrophils Relative 85.0 % LAB HEMETOLOGY METHOD 10/10/2024 7:08 AM [facility] Lymphocytes Relative 6.4 % LAB HEMETOLOGY METHOD 10/10/2024 7:08 AM [facility] Monocytes Relative 7.3 % LAB HEMETOLOGY METHOD 10/10/2024 7:08 AM [facility] Eosinophils Relative 0.7 % LAB HEMETOLOGY METHOD 10/10/2024 7:08 AM [facility] Basophils Relative 0.3 % LAB HEMETOLOGY METHOD 10/10/2024 7:08 AM [facility] Immature Granulocytes Relative 0.3 % LAB HEMETOLOGY METHOD 10/10/2024 7:08 AM [facility] Neutrophils Absolute 9.80(H) 1.50 - 7.00 K/mcL LAB HEMETOLOGY METHOD 10/10/2024 7:08 AM EDT [facility] Lymphocytes Absolute 0.74(L) 1.00 - 5.00 K/[facility] LAB HEMETOLOGY METHOD 10/10/2024 7:08 AM EDT [facility] Monocytes Absolute 0.84 0.20 - 1.00 K/[facility] LAB HEMETOLOGY METHOD 10/10/2024 7:08 AM EDT [facility] Eosinophils Absolute 0.08 0.00 - 0.50 K/[facility] LAB HEMETOLOGY METHOD 10/10/2024 7:08 AM EDT [facility] Basophils Absolute 0.03 0.00 - 0.20 K/[facility] LAB HEMETOLOGY METHOD 10/10/2024 7:08 AM EDT [facility] Immature Granulocytes Absolute 0.04(H) 0.00 - 0.03 K/[facility] LAB HEMETOLOGY METHOD 10/10/2024 7:08 AM EDT [facility] Blood Venous blood specimen / Unknown 10/10/2024 6:28 AM EDT 10/10/2024 6:54 AM EDT us Audrey Tavera NP LAB BLOOD ORDERABLES Final Resul t [facility] [address] [place] [address], * (ABNORMAL) Magnesium (10/10/2024 6:28 AM EDT) Only the most recent of2 resultswithin the time period is included. Magnesium 1.8(L) 1.9 - 2.6 mg/dL LAB CHEMISTRY METHOD 10/10/2024 7:44 AM EDT [facility] Blood Venous blood specimen / Unknown Venipuncture / Unknown 10/10/2024 6:28 AM EDT 10/10/2024 6:53 AM EDT us Audrey Tavera NP LAB BLOOD ORDERABLES Final Resul t Performing Organization Address [facility]/ZIP Co de Phone Number [facility] [address] [place] [address], [place] [phone] * (ABNORMAL) Hepatic function panel (10/10/2024 6:28 AM EDT) Total Protein 5.2(L) 6.0 - 8.0 g/dL LAB CHEMISTRY METHOD 10/10/2024 7:44 AM EDT [facility] Albumin 2.4(L) 3.2 - 5.0 g/dL LAB CHEMISTRY METHOD 10/10/2024 7:44 AM EDT [facility] Total Bilirubin 1.6(H) 0.0 - 1.4 mg/dL LAB CHEMISTRY METHOD 10/10/2024 7:44 AM [facility] Bilirubin, Direct 0.6(H) 0.0 - 0.3 mg/dL LAB CHEMISTRY METHOD 10/10/2024 7:44 AM EDT [facility] Bilirubin, Indirect 1.0 0.0 - 1.1 mg/dL LAB CHEMISTRY METHOD 10/10/2024 7:44 AM EDT [facility] ALT (SGPT) 99(H) 10 - 60 unit/L LAB CHEMISTRY METHOD 10/10/2024 7:44 AM [facility] AST (SGOT) 108(H) 10 - 42 unit/L LAB CHEMISTRY METHOD 10/10/2024 7:44 AM EDT [facility] Alkaline Phosphatase 144(H) 42 - 121 unit/L LAB CHEMISTRY METHOD 10/10/2024 7:44 AM T [facility] Blood Venous blood specimen / Unknown Venipuncture / Unknown 10/10/2024 6:28 AM EDT 10/10/2024 6:53 AM EDT us Audrey Tavera NP LAB BLOOD ORDERABLES Final Resul t [facility] [address] [place] [address], * (ABNORMAL) Basic metabolic panel (10/10/2024 6:28 AM EDT) Only the most recent of2 resultswithin the time period is included. Sodium 138 133 - 145 mmol/L LAB CHEMISTRY METHOD 10/10/2024 7:44 AM [facility] Potassium 3.7 3.5 - 5.5 mmol/L LAB CHEMISTRY METHOD 10/10/2024 7:44 AM [facility] Chloride 104 96 - 110 mmol/L LAB CHEMISTRY METHOD 10/10/2024 7:44 AM [facility] CO2 27 21 - 32 mmol/L LAB CHEMISTRY METHOD 10/10/2024 7:44 AM [facility] Anion Gap 7 3 - 11 LAB CHEMISTRY METHOD 10/10/2024 7:44 AM [facility] Glucose 98 70 - 100 mg/dL LAB CHEMISTRY METHOD 10/10/2024 7:44 AM [facility] BUN 15 5 - 25 mg/dL LAB CHEMISTRY METHOD 10/10/2024 7:44 AM [facility] Creatinine 1.03 0.70 - 1.30 mg/dL LAB CHEMISTRY METHOD 10/10/2024 7:44 AM [facility] eGFR 75 >=60 mL/min/1. 73m2 LAB CHEMISTRY METHOD 10/10/2024 7:44 AM [facility] Comment:Calculation based on the Chronic Kidney Disease Epidemiology Collaboration (CKD-EPI) equation refit without adjustment for race. BUN/Creatinine Ratio 14.6 LAB CHEMISTRY METHOD 10/10/2024 7:44 AM [facility] Calcium 8.2(L) 8.5 - 10.5 mg/dL LAB CHEMISTRY METHOD 10/10/2024 7:44 AM EDT [facility] Blood Venous blood specimen / Unknown Venipuncture / Unknown 10/10/2024 6:28 AM EDT 10/10/2024 6:53 AM EDT Audrey Tavera NP LAB BLOOD ORDERABLES Final Resul t Performing Organization Address [facility] Co de Phone Number [facility] [address] [place] [address], [place] [phone] * (ABNORMAL) Hemoglobin and hematocrit (10/09/2024 10:47 PM EDT) Only the most recent of4 resultswithin the time period is included. Hemoglobin 9.0(L) 13.5 - 17.5 g/dL LAB HEMETOLOGY METHOD 10/09/2024 11:13 PM EDT [facility] Hematocrit 29.2(L) 42.0 - 54.0 % LAB HEMETOLOGY METHOD 10/09/2024 11:13 PM EDT [facility] Blood Venous blood specimen / Unknown Venipuncture / Unknown 10/09/2024 10:47 PM EDT 10/09/2024 11:08 PM EDT Audrey Tavera NP LAB BLOOD ORDERABLES Final Resul t Performing Organization Address [facility] Co de Phone Number [facility] [address] [place] [address], [place] [phone] * (ABNORMAL) Complete blood count (10/09/2024 6:30 AM EDT) WBC 9.5 4.8 - 10.8 K/mcL LAB HEMETOLOGY METHOD 10/09/2024 7:54 AM EDT [facility] RBC 2.70(L) 4.50 - 5.50 M/mcL LAB HEMETOLOGY METHOD 10/09/2024 7:54 AM EDT [facility] Hemoglobin 8.3(L) 13.5 - 17.5 g/dL LAB HEMETOLOGY METHOD 10/09/2024 7:54 AM [facility] Hematocrit 26.7(L) 42.0 - 54.0 % LAB HEMETOLOGY METHOD 10/09/2024 7:54 AM [facility] MCV 98.2(H) 79.0 - 98.0 FL LAB HEMETOLOGY METHOD 10/09/2024 7[facility] MCH 30.5 27.0 - 32.0 pcg LAB HEMETOLOGY METHOD 10/09/2024 7:54 AM [facility] MCHC 31.1(L) 32.0 - 37.0 g/dL LAB HEMETOLOGY METHOD 10/09/2024 7:54 AM [facility] RDW 16.9(H) 11.0 - 15.0 % LAB HEMETOLOGY METHOD 10/09/2024 7:54 AM [facility] Platelets 408(H) 130 - 400 K/mcL LAB HEMETOLOGY METHOD 10/09/2024 7:54 AM [facility] MPV 9.9 7.0 - 11.0 FL LAB HEMETOLOGY METHOD 10/09/2024 7:54 AM [facility] NRBC 0.0 <1.0 % LAB HEMETOLOGY METHOD 10/09/2024 7:54 AM [facility] NRBC Absolute 0.00 <0.10 K/mcL LAB HEMETOLOGY METHOD 10/09/2024 7:54 AM [facility] Blood Venous blood specimen / Unknown Venipuncture / Unknown 10/09/2024 6:30 AM EDT 10/09/2024 7:13 AM EDT us Alexi Patel MD LAB BLOOD ORDERABLES Final Res ult Performing Organization Address City/[facility]/ZIP Co de Phone Number [facility] [address] [place] [address], [place] [phone] * ECG 12 lead (10/09/2024 5:44 AM EDT) Only the most recent of3 resultswithin the time period is included. Ventricular Rate ECG 131 BPM GEMUSE Atrial Rate 78 BPM GEMUSE QRS Duration 84 ms GEMUSE Q-T Interval 348 ms GEMUSE QTc 513 ms GEMUSE T Alfred 25 degrees GEMUSE ECG Interpretation Supraventricular tachycardia Septal infarct , age undetermined Abnormal ECG When compared with ECG of 08-OCT-2024 12:06, Supraventricular tachycardia has replaced Atrial flutter Vent. rate has increased BY [address] now depressed in Lateral leads Nonspecific T wave abnormality, worse in Inferior leads Confirmed by Tasha RUIZ JOHN ([id number]) on 10/09/2024 9:11:18 PM GEMUSE 10/09/2024 5:44 AM EDT 10/09/2024 9:11 PM EDT us Alexi Patel MD ECG ORDERABLES Final Result Performing Organization Address [facility] Co de Phone Number GEMUSE * [...] Signed Date: 10/08/2024 15:49 ET Workstation ID: [id number] Transcribed By: Self Edit Transcribed Date: 10/08/2024 [...] Signed Date: 10/08/2024 15:49 ET Workstation ID: [id number] Transcribed By: Self Edit Transcribed Date: 10/08/2024 [...] Signed Date: 10/08/2024 15:01 ET Workstation ID: [id number] Transcribed By: Self Edit Transcribed Date: 10/08/2024 [...] Signed Date: 10/08/2024 15:01 ET Workstation ID: [id number] Transcribed By: Self Edit Transcribed Date: 10/08/2024 14:50 ET us Modesta YUN IMG US PROCEDURES Final Result * Troponin I high sensitivity (10/08/2024 12:02 PM EDT) Only the most recent of2 resultswithin the time period is included. High Sensitivity Troponin I 22 <=79 ng/L LAB CHEMISTRY METHOD 10/08/2024 1:10 PM EDT [facility] Blood Venous blood specimen / Unknown Venipuncture / Unknown 10/08/2024 12:02 PM EDT 10/08/2024 12:35 PM EDT Narrative [facility] - 10/08/2024 1:10 PM EDT High levels of biotin in samples may falsely decrease hsTroponin values. Use caution when interpreting hsTroponin results in patients taking biotin who exhibit renal impairment (eGFR <60) or in patients taking more than 20 mg/day of biotin. us Alexi Patel MD LAB BLOOD ORDERABLES Final Res ult [facility] [address] [place] [address], [place] [phone] * CT Abdomen Pelvis wo Contrast (10/08/2024 10:43 AM EDT) Anatomical Region Laterality Modality Body Computed Tomogra phy 10/08/2024 10:5 2 AM EDT Impressions 10/08/2024 11:04 AM EDT Impression: 1. Large right renal/perinephric hematoma, with extensive hemorrhagic fat stranding in the right perinephric space. 2. Cholelithiasis. No evidence of acute cholecystitis or biliary obstruction. 3. Small complex right pleural effusion. Get[employer] PA ([id number]) -------- FINAL REPORT -------- Dictated By: Ericka Taylor Dictated Date: 10/08/2024 10:52 ET Assigned Physician: Ericka Taylor Reviewed and Electronically Signed By: Ericka Taylor Signed Date: 10/08/2024 11:04 ET Workstation ID: [id number] Transcribed By: Self Edit Transcribed Date: 10/08/2024 [...] intravenous or oral contrast. DLP: 1848.22 mGy/cm Covalent Softwareer Iterative reconstruction technique Findings: A hyperdense 12 [...] intravenous or oral contrast. DLP: 1848.22 mGy/cm Covalent Softwareer Iterative reconstruction technique Findings: A hyperdense 12 [...] Small complex right pleural effusion. [address] ([id number]) -------- FINAL REPORT -------- Dictated By: Ericka Taylor Dictated Date: 10/08/2024 10:52 ET Assigned Physician: Ericka Taylor Reviewed and Electronically Signed By: Ericka Taylor Signed Date: 10/08/2024 11:04 ET Workstation ID: [id number] Transcribed By: Self Edit Transcribed Date: 10/08/2024 10:52 ET Ji Crow DO IMG CT PROCEDURES Final Res ult * Prothrombin time with INR (10/08/2024 10:40 AM EDT) Protime 13.9 10.6 - 13.9 sec LAB COAGULATION METHOD 10/08/2024 10:51 AM EDT [facility] INR 1.1 LAB COAGULATION METHOD 10/08/2024 10:51 AM EDT [facility] Blood Venous blood specimen / Unknown Venipuncture / Unknown 10/08/2024 10:40 AM EDT 10/08/2024 10:43 AM EDT Ji Crow DO LAB BLOOD ORDERABLES Final Result [facility] [address] [place] [address], [place] [phone] * Type and screen (10/08/2024 10:33 AM EDT) [facility] ABO Group O 10/08/2024 11:44 AM EDT [facility] Rh Type Positive 10/08/2024 11:44 AM EDT [facility] Antibody Screen Negative 10/08/2024 11:44 AM EDT [facility] Blood Venous blood specimen / Unknown Venipuncture / Unknown 10/08/2024 10:33 AM EDT 10/08/2024 10:43 AM EDT us Ji Crow DO LAB BLOOD BANK TEST ORDERAB LES Final Result Performing Organization Address [facility]/ZIP Co de Phone Number [facility] [address] [place] [address], [place] [phone] * (ABNORMAL) B-type natriuretic peptide (10/08/2024 10:33 AM EDT) [facility] BNP 369(H) <=100 pcg/mL LAB CHEMISTRY METHOD 10/08/2024 11:29 AM EDT [facility] Blood Venous blood specimen / Unknown Venipuncture / Unknown 10/08/2024 10:33 AM EDT 10/08/2024 10:43 AM EDT us Ji Crow DO LAB BLOOD ORDERABLES Final Result Performing Organization Address [facility]/ZIP Co de Phone Number [facility] [address] [place] [address], [place] [phone] * Lipase (10/08/2024 10:33 AM EDT) [facility] Lipase 22 13 - 75 unit/L LAB CHEMISTRY METHOD 10/08/2024 11:24 AM EDT [facility] Blood Venous blood specimen / Unknown Venipuncture / Unknown 10/08/2024 10:33 AM EDT 10/08/2024 10:43 AM EDT Ji Crow DO LAB BLOOD ORDERABLES Final Result Performing Organization Address City/[facility]/ZIP Co de Phone Number [facility] [address] [place] [address], [place] [phone] * Ethanol (10/08/2024 10:33 AM EDT) Ethanol Level <3 0 - 10 mg/dL LAB CHEMISTRY METHOD 10/08/2024 4:53 PM EDT [facility] Blood Venous blood specimen / Unknown Venipuncture / Unknown 10/08/2024 10:33 AM EDT 10/08/2024 10:[address] PA LAB BLOOD ORDERABLES Final Resul t Performing Organization Address [facility]/ZIP Co de Phone Number [facility] [address] [place] [address], [place] [phone] * (ABNORMAL) Comprehensive metabolic panel (10/08/2024 10:33 AM EDT) Sodium 136 133 - 145 mmol/L LAB CHEMISTRY METHOD 10/08/2024 11:24 AM EDT [facility] Potassium 4.6 3.5 - 5.5 mmol/L LAB CHEMISTRY METHOD 10/08/2024 11:24 AM EDT [facility] Chloride 105 96 - 110 mmol/L LAB CHEMISTRY METHOD 10/08/2024 11:24 AM EDT [facility] CO2 24 21 - 32 mmol/L LAB CHEMISTRY METHOD 10/08/2024 11:24 AM EDT [facility] Anion Gap 7 3 - 11 LAB CHEMISTRY METHOD 10/08/2024 11:24 AM [facility] Glucose 107(H) 70 - 100 mg/dL LAB CHEMISTRY METHOD 10/08/2024 11:24 AM [facility] BUN 18 5 - 25 mg/dL LAB CHEMISTRY METHOD 10/08/2024 11:24 AM [facility] Creatinine 1.36(H) 0.70 - 1.30 mg/dL LAB CHEMISTRY METHOD 10/08/2024 11:24 AM [facility] eGFR 54(L) >=60 mL/min/1. 73m2 LAB CHEMISTRY METHOD 10/08/2024 11:24 AM [facility] Comment:Calculation based on the Chronic Kidney Disease Epidemiology Collaboration (CKD-EPI) equation refit without adjustment for race. BUN/Creatinine Ratio 13.2 LAB CHEMISTRY METHOD 10/08/2024 11:24 AM [facility] Calcium 8.5 8.5 - 10.5 mg/dL LAB CHEMISTRY METHOD 10/08/2024 11:24 AM [facility] AST (SGOT) 97(H) 10 - 42 unit/L LAB CHEMISTRY METHOD 10/08/2024 11:24 AM [facility] ALT (SGPT) 118(H) 10 - 60 unit/L LAB CHEMISTRY METHOD 10/08/2024 11:24 AM [facility] Alkaline Phosphatase 146(H) 42 - 121 unit/L LAB CHEMISTRY METHOD 10/08/2024 11:24 AM [facility] Total Protein 5.9(L) 6.0 - 8.0 g/dL LAB CHEMISTRY METHOD 10/08/2024 11:24 AM [facility] Albumin 2.8(L) 3.2 - 5.0 g/dL LAB CHEMISTRY METHOD 10/08/2024 11:24 AM [facility] Total Bilirubin 1.6(H) 0.0 - 1.4 mg/dL LAB CHEMISTRY METHOD 10/08/2024 11:24 AM EDT [facility] Blood Venous blood specimen / Unknown Venipuncture / Unknown 10/08/2024 10:33 AM EDT 10/08/2024 10:43 AM EDT us Ji Crow DO LAB BLOOD ORDERABLES Final Result [facility] [address] [place] [address], [place] [phone] from Last 3 Months Insurance MEDICAID - [place] [employer] MEDICARE ADVANTAGE Advance Directives Documents on File Type Date Recorded Patient Salesforce Developer Expl anation Advance Directives and Living Will 10/10/2024 12:09 PM [facility] Proxy * Full Code - Default (Latest [...] Agents on File Name Relationship Healthcare Agent [facility] Communication Ame [facility] Agent Care Teams Channeler Outsole Relationship Specialty Start Date End Date Sesar Pereyra MD [address] [place] [id number] PCP - General Internal Medicine 10/08/24
--- OUTSIDE RECORDS SUMMARY | 2024-12-21 10:28 | XMS_ITS ---
Author Name WILLIE AZEVEDO, MS. CARRIE LIM Address [address] [address] Phone [phone] Organization [facility] Care Team Providers Care Manufacturing Weaver Name Role Phone CARRIE TAPIA Unavailable [phone] Reason for Referral Not Available Allergies, adverse [...] mplaint [facility] 7 Day Disch [place], [place], 10/07/2024 Minor contusion of unspecified kidney, initial encounterEncntr for f/u exam aft trtmt for cond oth than malig neoplm Transitional Care Mgmt 7 Day Disch [place], [place], 10/07/2024 Minor contusion of unspecified kidney, initial encounterEncntr for f/u exam aft trtmt for cond oth than malig neoplm Social History Sex Male Gender identity Man History of Procedures Procedures Service Procedure code Service date Servicing provider Phone# Transitional Care Mgmt 7 Day Disch [id number] 2024-10-07 No Data Available No Data Avail able Medrec Completed within 30 Days of Discharge [id number] 2024-10-07 No Data Available No Data Availa ble Functional Status No Information Mental Status No Information Assessments Date of Service Assessments 2024-10-07 07:50:36 Minor contusion of u nspecified kidney, initial encounter Plan of Care Date of Service Plans 2024-10-07 07:50:36 Pt was discharged ho ma. Pt states that he is safe at [...] on. 2024-10-07 Type of Visit: Marcy jack: [facility]Admit Date:09/30/2024Discharge Date: 10/06/2024Discharge diagnosis: MINOR CONTUSION OF UNSPECIFIED KIDNEY, INITIAL ENCOUNTER
--- OUTSIDE RECORDS SUMMARY | 2024-12-21 10:28 | XMS_ITS | Encounter Summary ---
Author Organization [facility] Address [address] [place] [id number] Phone Care Team Providers Care Salesperson Floor Coverings Name Role Phone Yolande Gomez DO Primary Car e Provider Pcp, Unknown Unavailable Unavailable Benjamin Mejia DO Unavailable [phone] Sesar Pereyra MD Primary Care Pr ovider Encounter Details Date Type Department Care Team (Latest Contact Info) Description 02/07/2020 Transcribe Orders [facility] Echocardiography [address] [place] [address] Anca Michaud PA-C [address] [place] [address] [email or web address] Encounter for therapeutic drug monitoring (Primary Dx) Social History Tobacco Use Types Packs/Day Years Used Date Smoking Tobacco: Former Smokeless Tobacco: Never Alcohol Use Standard Drinks/Week Comments Not Currently 0 (1 standard drink = 0.6 oz pur e alcohol) Sex and Gender Information Value Date Recorded Sex Assigned at Male 02/14/2020 2:09 AM EDT Legal Sex Male 3:14 PM EDT Gender Identity Male 02/14/2020 2:09 AM EDT Sexual Orientation Not on file documented as of this encounter Plan of Treatment Upcoming Encounters Date Type Department Care Team (Late st Contact Info) Description 01/06/2025 2:00 PM EDT Office Visit [facility] [address], [address] [place] [address] Anuj Garcia MD, MS [address], [address] [place] [address] [email or web address] 06/12/2025 2:30 PM EST Office Visit [facility] [address] [place] [address] Benjamin Mejia, [address] [place] [address] [email or web address] documented as of this encounter Procedures Procedure Name Priority Date/Time Associated Diagnosis Comments ECG 12-LEAD Routine 02/07/2020 11:45 AM EDT Encounter for therapeutic drug monitoring documented in this encounter Results * ECG 12-LEAD (02/07/2020 11:45 AM EDT) Ventricular Rate EKG/MIN 64 BPM [facility] Atrial Rate [address] [facility] [address] Interval 180 ms [facility] QRS Duration 86 ms [facility] QT Interval 484 ms [facility] QTC Interval 499 ms [facility] P Early 90 degrees [facility] R Wave Early 2 degrees [facility] T Wave Early 0 degrees [facility] 02/07/2020 11:4 5 AM EDT Narrative [facility] - 02/07/2020 4:37 PM EDT Normal sinus rhythm Cannot rule out Anterior myocardial infarction (cited on or before 06-FEB-2020) Prolonged QT interval or t-u fusion, consider myocardial disease, electrolyte imbalance, or drug effects Abnormal ECG When compared with ECG of 06-FEB-2020 03:28, Sinus rhythm has replaced Atrial fibrillation Nonspecific T wave abnormality, improved in Anterior-lateral leads Anca Michaud PA-C ECG ORDERABLES Final Result [facility] documented in this encounter Visit Diagnoses Diagnosis Encounter for therapeutic drug monitoring- Primary documented in this encounter Additional Health Concerns 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 It is not the complete legal health record.[facility]
[2024-12-21 11:33] LABS: Anion Gap 15 (12-20); Blood Urea Nitrogen 25 mg/dL (9-16); Carbon Dioxide 19 mmol/L (22-29); Chloride 111 mmol/L (96-108); Cholesterol 75 mg/dL (<200); Estimated Glomerular Filt Rate 49; Potassium 4.7 mmol/L (3.3-5.1); Sodium 140 mmol/L (135-145); Triglycerides 63 mg/dL (<150)
[2024-12-21 12:14] LABS: HDL Cholesterol 36 mg/dL (>40)
== END 2024-12-21 10:26 | disposition home or self-care (01) ==
LOC: HO.LAB 10:25
PROVIDERS: Nurse Practitioner Family; PCP Internal Medicine; Visit Provider Internal Medicine Nephrology
DX: I25.10 Atherosclerotic heart disease of native coronary artery without angina pectoris (principal); N18.31 Chronic kidney disease, stage 3a; I15.0 Renovascular hypertension
CPT/HCPCS: 36415; 80051; 80061; 82565; 84520

== ENCOUNTER 2024-12-23 11:34 | Outpatient (AMB) | payer OTHER, MEDICAID, SELFPAY ==
--- NOTE | 2024-12-23 11:46 | HO.NEPHOV_ITS ---
Vital Signs 12/23/24 11:57 Height 6 ft Weight 214 lb BMI 29.0 BP 134/70 Blood Pressure Location Lt brachial Position Sitting Pulse 55 Pulse Source Pulse Oximeter Pulse Oximetry (%) 96 Oxygen Delivery Method Room Air Intake Visit Reasons: CKD-Conf Strip Stamp Straightener Required: No Accompanied by: Other Relationship Allergies No Known Allergies (No Known Allergies*) Allergy (Verified 12/23/24 11:57) HPI Comments Details: Mr. Johnson was seen in follow up for CKD. He has a remote history of left renal carcinoma which was treated by partial nephrectomy in 2006 . He recently had a follow-up MRI which revealed a 1.6 cm left renal mass which appear to be enhancing and suspicious for renal cell cancer. 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 He also has been having lower urinary tract symptoms and had been started on Flomax. He is known to have peripheral vascular disease and had undergone bypass. He has history of renal stones but has not had one lately. Remotely he had colectomy and colostomy which had been reversed in 2006, He denies any flank pain, hematuria, dysuria. He denies taking nonsteroidal anti-inflammatory medications. He does not have any coronary artery disease, congestive heart fa ilure or known renal artery stenosis. He takes lisinopril and metoprolol and his BP has been at goal. He is on anticoagulation. His recent serum creatinine was found to be 1.41, up from 1.08 in September. He sates he does not hydrate much during the day- denies nausea/vomiting/diarrhea, urinary symptoms, other changes. Has LE swelling which he states is chronic and unchanged, denies shortness of breath, wears compression stockings- diuresis through cardiology (diastolic heart failure). Takes lasix 20mg PO daily. [facility] Medical History (Updated 11/21/24 @ 15:46 by Augusta Klein PA-C) Paroxysmal atrial flutter Renal hematoma Orthostatic lightheadedness QT prolongation Cardiac arrhythmia CHF (congestive heart failure) Acute dyspnea Glenoid fracture of shoulder Closed left scapular fracture Dislocation of left glenohumeral joint Shoulder pain, left Paroxysmal atrial fibrillation Preoperative cardiovascular examination Coronary artery disease Hypersomnia Snoring Neuropathy Atherosclerotic cardiovascular disease History of alcohol abuse History of COVID-19 On beta jose at home COPD (chronic obstructive pulmonary disease) On anticoagulant therapy History of atrial fibrillation PVD (peripheral vascular disease) Renal cell carcinoma Hypertension Depression Anxiety Diverticulitis Surgical History History of intestinal surgery History of kidney surgery H/O cardiac catheterization History of colectomy S/P femoral-femoral bypass surgery Social History Household Members: Other Household Members Other:: girlfriend Housing: House Are you a primary coronary care unit nurse to a significant other at home: No Do you presently have visiting nurse or other home services: Yes Alcohol intake: former Patient Tobacco Use Status: Former Tobacco user Tobacco use type: Cigarette Second Hand Smoke Exposure: No Substance Use Type: Marijuana Advance Directives Date on File: 06/09/21 service: No Current occupational status: retired Current occupation: right hand dominant Review of Systems Const Details: All systems reviewed and negative accept as in HPI. All systems reviewed & are unremarkable except as noted in HPI and below Reports as per HPI, Reports no additional complaints, Reports anorexia, Reports body aches, Reports chills, Reports daytime sleepiness, Reports difficulty sleeping, Reports excessive sweating, Reports fatigue, Reports fever(s), Reports frequent falls, Reports headache(s), Reports increased appetite, Reports lethargy, Reports malaise, Reports night sweats, Reports poor appetite, Reports snoring, Reports stops breathing during sleep, Reports weakness, Reports weight gain, Reports weight loss and Reports other ENT Reports headache(s) Resp Reports snoring Neuro Reports frequent falls, Reports headache(s) and Reports weakness Endo Reports excessive sweating and Reports fatigue Physical Exam Const General: comfortable and no acute distress Orientation/consciousness: patient oriented x3 Resp Auscultation: clear to auscultation bilaterally Cardio Jugular venous distension: no JVD Rate: regular rate Rhythm: regular rhythm Heart sounds: S1 normal heart sound present and S2 normal heart sound present GI Palpation (GI): Soft to palpation and nontender Auscultation: normal bowel sounds General: Yes no CVA tenderness Back/Spine/Pelvis Back: no CVA tenderness Skin General skin exam: no rashes or lesions noted Neuro General: patient oriented x3 and moves all extremities Extrem General: Yes edema (bilateral lower extremity edema, +2, pitting, with compression stockings on) Results Reviewed Nephrology Results: Hgb, (14.0-18.0) 10.9 g/dl L 10/16/24 WBC, (4.8-10.8) 9.4 X10*3/uL 10/16/24 Plt Count, (160-400) 534 X10*3/uL H 10/16/24 Sodium, (135-145) 140 mmol/L 12/21/24 Potassium, (3.3-5.1) 4.7 mmol/L 12/21/24 Chloride, (96-108) 111 mmol/L H 12/21/24 Carbon Dioxide, (22-29) 19 mmol/L L 12/21/24 BUN, (9-16) 25 mg/dL H 12/21/24 Creatinine, (0.5-1.4) 1.41 mg/dL H 12/21/24 Calcium, (8.4-10.2) 9.2 mg/dL 10/16/24 Urine Protein, (Neg-Trace) Negative mg/dL 10/16/24 Renal US 06/29/23 Assessment & Plan Assessment & Plan (1) CKD (chronic kidney disease) stage 3, GFR 30-59 ml/min: Code(s): N18.30 - Chronic kidney disease, stage 3 unspecified Category: Medical Qualifiers: Chronic kidney disease stage 3 subtype: stage 3a (GFR 45-59) Qualified Code(s): N18.31 - Chronic kidney disease, stage 3a (2) Hypertension: Code(s): I10 - Essential (primary) hypertension Category: Medical Qualifiers: Hypertension type: unspecified Qualified Code(s): I10 - Essential (primary) hypertension Plan Alex has chronic kidney disease most likely from vascular disease. He has had a recent CATALINO, likely ATN from dehydration in the setting of diuretic use. Advised to decrease lasix to 20mg PO every other day (from 20mg PO daily). He also had the loss of GFR from his partial nephrectomy. He is known to have bypasses for his PAD. He should continue to follow Urology for management of renal cell cancer. He should improve his hydration. He avoids nonsteroidal anti-inflammatory medications. He will be a candidate for SGLT2i. I answered all his questions. Follow-up blood work ordered. He will follow up with Dr Mukherjee in [address] Mukherjee. Coding Level of Care Code Est Pt Level 4 (62151) Diagnoses Stage 3a chronic kidney disease N18.31 Chronic kidney disease stage 3 subtype: stage 3a (GFR 45-59) Hypertension, unspecified type I10 Hypertension type: unspecified
[2024-12-23 11:57] VITALS: BP 134/70; PULSE 55; O2SAT 96; BMI 29.0
--- OUTSIDE RECORDS SUMMARY | 2024-12-23 13:06 | XMS_ITS | Clinical Summary ---
Author Organization [facility] Address [address] [place] [phone] Phone Care Team Providers Care Pump Installation And Servicer Name Role Phone Sesar Pereyra MD Primary Care Provider [phone] Allergies No known active allergies Medications albuterol [...] - 10/10/2024 1:43 PM EDT Hospital Encounter [facility] [address] [place] [address] Ji Crow DO Bukalo, Nermina, MD Seralathan, Manikandan, MD Hematoma of right kidney, subsequent encounter (Primary Dx) Discharge Disposition: Home-Health Care [facility] from Last 3 Months Surgical History Surgery Date Site/Laterality Comments VASECTOMY PROCEDURE: VA VASECTOMY UNI/BI SPX W/POSTOP SEMEN EXAMS NASAL SEPTUM SURGERY PROCEDURE: VA SEPTOPLASTY/SUBMUCOUS RESECJ W/WO CARTILAGE GRF; COMMENT: septoplasty HERNIA REPAIR 1997 - 05/05, PROCEDURE: LAPAROSCOPY, INGUINAL HERNIA REPAIR OTHER SURGICAL HISTORY 02/03 PROCEDURE: STENT, NON-COR, TEM W/O DEL; COMMENT: RIGHT EXTERNAL ILIAC ARTERY OTHER SURGICAL HISTORY PROCEDURE: VA COLOSTOMY/SKIN LEVEL CECOSTOMY; COMMENT: AND COLECTOMY FOR DIVERTICULITIS OTHER SURGICAL HISTORY PROCEDURE: VA RENAL NDSC NEPHROS/PYELOSTOMY RESCJ TUMOR; COMMENT: 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 INCISIONAL HERNIA REPAIR 2008 PROCEDURE: VA IMPLANT MESH OPN HERNIA RPR/DEBRIDEMENT CLOSURE OTHER SURGICAL HISTORY 2006 approx PROCEDURE: VA BYP OTH/THN VEIN FEM-ANT TIBL PST TIBL/PRONEAL; COMMENT: left: fem- fem bypass COLONOSCOPY 05/17/2006 PROCEDURE: HISTORICAL COLONOSCOPY; COMMENT: diverticulosis; repeat in 10 yrs COLONOSCOPY W/ POLYPECTOMY 03/22/2017 PROCEDURE: VA COLSC FLX W/RMVL OF TUMOR POLYP LESION [...] DX:I mpotence of organic origin Atherosclerosis of [place] ar teries of the extremities with intermittent claudication DX:Atherosclerosis of [place] arteries of the extremities with intermittent claudication; [...] Diverticulitis Daughter Alive Healthy? Father (Age 49) [place] x 3, ET [place] Maternal Grandfather (Age [...] LAB HEMETOLOGY METHOD 10/10/2024 7:08 AM EDT [facility] Lymphocytes Absolute 0.74(L) 1.00 - 5.00 K/[facility] LAB HEMETOLOGY METHOD 10/10/2024 7:08 AM EDT [facility] Monocytes Absolute 0.84 0.20 - 1.00 K/[facility] LAB HEMETOLOGY METHOD 10/10/2024 7:08 AM EDT [facility] Eosinophils Absolute 0.08 0.00 - 0.50 K/[facility] LAB HEMETOLOGY METHOD 10/10/2024 7:08 AM EDT [facility] Basophils Absolute 0.03 0.00 - 0.20 K/[facility] LAB HEMETOLOGY METHOD 10/10/2024 7:08 AM EDT [facility] Immature Granulocytes Absolute 0.04(H) 0.00 - 0.03 K/[facility] LAB HEMETOLOGY METHOD 10/10/2024 7:08 AM EDT [facility] Blood Venous blood specimen / Unknown 10/10/2024 6:28 AM EDT 10/10/2024 6:54 AM EDT us Audrey Tavera NP LAB BLOOD ORDERABLES Final Resul t [facility] [address] [place] [address], * (ABNORMAL) Magnesium (10/10/2024 6:28 AM EDT) Only the most recent of2 resultswithin the time period is included. Magnesium 1.8(L) 1.9 - 2.6 mg/dL LAB CHEMISTRY METHOD 10/10/2024 7:44 AM EDT [facility] Blood Venous blood specimen / Unknown Venipuncture / Unknown 10/10/2024 6:28 AM EDT 10/10/2024 6:53 AM EDT us Audrey Tavera NP LAB BLOOD ORDERABLES Final Resul t Performing Organization Address [facility]/ZIP Co de Phone Number [facility] [address] [place] [address], [place] [phone] * (ABNORMAL) Hepatic function panel (10/10/2024 6:28 AM EDT) Total Protein 5.2(L) 6.0 - 8.0 g/dL LAB CHEMISTRY METHOD 10/10/2024 7:44 AM EDT [facility] Albumin 2.4(L) 3.2 - 5.0 g/dL LAB CHEMISTRY METHOD 10/10/2024 7:44 AM EDT [facility] Total Bilirubin 1.6(H) 0.0 - 1.4 mg/dL LAB CHEMISTRY METHOD 10/10/2024 7:44 AM [facility] Bilirubin, Direct 0.6(H) 0.0 - 0.3 mg/dL LAB CHEMISTRY METHOD 10/10/2024 7:44 AM EDT [facility] Bilirubin, Indirect 1.0 0.0 - 1.1 mg/dL LAB CHEMISTRY METHOD 10/10/2024 7:44 AM EDT [facility] ALT (SGPT) 99(H) 10 - 60 unit/L LAB CHEMISTRY METHOD 10/10/2024 7:44 AM [facility] AST (SGOT) 108(H) 10 - 42 unit/L LAB CHEMISTRY METHOD 10/10/2024 7:44 AM EDT [facility] Alkaline Phosphatase 144(H) 42 - 121 unit/L LAB CHEMISTRY METHOD 10/10/2024 7:44 AM T [facility] Blood Venous blood specimen / Unknown Venipuncture / Unknown 10/10/2024 6:28 AM EDT 10/10/2024 6:53 AM EDT us Audrey Tavera NP LAB BLOOD ORDERABLES Final Resul t [facility] [address] [place] [address], * (ABNORMAL) Basic metabolic panel (10/10/2024 6:28 [...] LAB CHEMISTRY METHOD 10/10/2024 7:44 AM EDT [facility] Blood Venous blood specimen / Unknown Venipuncture / Unknown 10/10/2024 6:28 AM EDT 10/10/2024 6:53 AM EDT Audrey Tavera NP LAB BLOOD ORDERABLES Final Resul t Performing Organization Address [facility] Co de Phone Number [facility] [address] [place] [address], [place] [phone] * (ABNORMAL) Hemoglobin and hematocrit (10/09/2024 10:47 PM EDT) Only the most recent of4 resultswithin the time period is included. Hemoglobin 9.0(L) 13.5 - 17.5 g/dL LAB HEMETOLOGY METHOD 10/09/2024 11:13 PM EDT [facility] Hematocrit 29.2(L) 42.0 - 54.0 % LAB HEMETOLOGY METHOD 10/09/2024 11:13 PM EDT [facility] Blood Venous blood specimen / Unknown Venipuncture / Unknown 10/09/2024 10:47 PM EDT 10/09/2024 11:08 PM EDT Audrey Tavera NP LAB BLOOD ORDERABLES Final Resul t Performing Organization Address [facility] Co de Phone Number [facility] [address] [place] [address], [place] [phone] * (ABNORMAL) Complete blood count (10/09/2024 6:30 AM EDT) WBC 9.5 4.8 - 10.8 K/mcL LAB HEMETOLOGY METHOD 10/09/2024 7:54 AM EDT [facility] RBC 2.70(L) 4.50 - 5.50 M/mcL LAB HEMETOLOGY METHOD 10/09/2024 7:54 AM EDT [facility] Hemoglobin 8.3(L) 13.5 - 17.5 g/dL LAB HEMETOLOGY METHOD 10/09/2024 7:54 AM [facility] Hematocrit 26.7(L) 42.0 - 54.0 % LAB HEMETOLOGY METHOD 10/09/2024 7:54 AM [facility] MCV 98.2(H) 79.0 - 98.0 FL LAB HEMETOLOGY METHOD 10/09/2024 7:[facility] MCH 30.5 27.0 - 32.0 [...] Final Res ult Performing Organization Address City/[facility]/ZIP Co de Phone Number [facility] [address] [place] [address], [place] [phone] * ECG 12 lead (10/09/2024 5:44 AM EDT) Only the most recent of3 resultswithin the time period is included. Ventricular Rate ECG 131 BPM GEMUSE Atrial Rate 78 BPM GEMUSE QRS Duration 84 ms GEMUSE Q-T Interval 348 ms GEMUSE QTc 513 ms GEMUSE T [place] 25 degrees GEMUSE ECG Interpretation Supraventricular tachycardia Septal infarct , age undetermined Abnormal ECG When compared with ECG of 08-OCT-2024 12:06, Supraventricular tachycardia has replaced Atrial flutter Vent. rate has increased BY [address] now depressed in Lateral leads Nonspecific T wave abnormality, worse in Inferior leads Confirmed by Tasha RUIZ JOHN ([id number]) on 10/09/2024 9:11:18 PM GEMUSE 10/09/2024 5:44 AM EDT 10/09/2024 9:11 PM EDT us Alexi Patel MD ECG ORDERABLES Final Result Performing Organization Address [facility] Co de Phone Number GEMUSE * [...] Signed Date: 10/08/2024 15:49 ET Workstation ID: [id number] Transcribed By: Self Edit Transcribed Date: 10/08/2024 [...] Signed Date: 10/08/2024 15:49 ET Workstation ID: [id number] Transcribed By: Self Edit Transcribed Date: 10/08/2024 [...] Signed Date: 10/08/2024 15:01 ET Workstation ID: [id number] Transcribed By: Self Edit Transcribed Date: 10/08/2024 [...] Signed Date: 10/08/2024 15:01 ET Workstation ID: [id number] Transcribed By: Self Edit Transcribed Date: 10/08/2024 14:50 ET us Modesta YUN IMG US PROCEDURES Final Result * Troponin I high sensitivity (10/08/2024 12:02 PM EDT) Only the most recent of2 resultswithin the time period is included. High Sensitivity Troponin I 22 <=79 ng/L LAB CHEMISTRY METHOD 10/08/2024 1:10 PM EDT [facility] Blood Venous blood specimen / Unknown Venipuncture / Unknown 10/08/2024 12:02 PM EDT 10/08/2024 12:35 PM EDT Narrative [facility] - 10/08/2024 1:10 PM EDT High levels of biotin in samples may falsely decrease hsTroponin values. Use caution when interpreting hsTroponin results in patients taking biotin who exhibit renal impairment (eGFR <60) or in patients taking more than 20 mg/day of biotin. us Alexi Patel MD LAB BLOOD ORDERABLES Final Res ult [facility] [address] [place] [address], [place] [phone] * CT Abdomen Pelvis wo Contrast (10/08/2024 10:43 AM EDT) Anatomical Region Laterality Modality Body Computed Tomogra phy 10/08/2024 10:5 2 AM EDT Impressions 10/08/2024 11:04 AM EDT Impression: 1. Large right renal/perinephric hematoma, with extensive hemorrhagic fat stranding in the right perinephric space. 2. Cholelithiasis. No evidence of acute cholecystitis or biliary obstruction. 3. Small complex right pleural effusion. [employer] [place] ([id number]) -------- FINAL REPORT -------- Dictated By: Ericka Taylor Dictated Date: 10/08/2024 10:52 ET Assigned Physician: Ericka Taylor Reviewed and Electronically Signed By: Ericka Taylor Signed Date: 10/08/2024 11:04 ET Workstation ID: [id number] Transcribed By: Self Edit Transcribed Date: 10/08/2024 [...] intravenous or oral contrast. DLP: 1848.22 mGy/cm Adskomer Iterative reconstruction technique Findings: A hyperdense 12 [...] intravenous or oral contrast. DLP: 1848.22 mGy/cm Adskomer Iterative reconstruction technique Findings: A hyperdense 12 [...] Small complex right pleural effusion. [address] ([id number]) -------- FINAL REPORT -------- Dictated By: Ericka Taylor Dictated Date: 10/08/2024 10:52 ET Assigned Physician: Ericka Taylor Reviewed and Electronically Signed By: Ericka Taylor Signed Date: 10/08/2024 11:04 ET Workstation ID: [id number] Transcribed By: Self Edit Transcribed Date: 10/08/2024 10:52 ET Ji Crow DO IMG CT PROCEDURES Final Res ult * Prothrombin time with INR (10/08/2024 10:40 AM EDT) Protime 13.9 10.6 - 13.9 sec LAB COAGULATION METHOD 10/08/2024 10:51 AM EDT [facility] INR 1.1 LAB COAGULATION METHOD 10/08/2024 10:51 AM EDT [facility] Blood Venous blood specimen / Unknown Venipuncture / Unknown 10/08/2024 10:40 AM EDT 10/08/2024 10:43 AM EDT Ji Crow DO LAB BLOOD ORDERABLES Final Result [facility] [address] [place] [address], [place] [phone] * Type and screen (10/08/2024 10:33 AM EDT) [facility] ABO Group O 10/08/2024 11:44 AM EDT [facility] Rh Type Positive 10/08/2024 11:44 AM EDT [facility] Antibody Screen Negative 10/08/2024 11:44 AM EDT [facility] Blood Venous blood specimen / Unknown Venipuncture / Unknown 10/08/2024 10:33 AM EDT 10/08/2024 10:43 AM EDT us Ji Crow DO LAB BLOOD BANK TEST ORDERAB LES Final Result Performing Organization Address [facility]/ZIP Co de Phone Number [facility] [address] [place] [address], [place] [phone] * (ABNORMAL) B-type natriuretic peptide (10/08/2024 10:33 AM EDT) [facility] BNP 369(H) <=100 pcg/mL LAB CHEMISTRY METHOD 10/08/2024 11:29 AM EDT [facility] Blood Venous blood specimen / Unknown Venipuncture / Unknown 10/08/2024 10:33 AM EDT 10/08/2024 10:43 AM EDT us Ji Crow DO LAB BLOOD ORDERABLES Final Result Performing Organization Address [facility]/ZIP Co de Phone Number [facility] [address] [place] [address], [place] [phone] * Lipase (10/08/2024 10:33 AM EDT) [facility] Lipase 22 13 - 75 unit/L LAB CHEMISTRY METHOD 10/08/2024 11:24 AM EDT [facility] Blood Venous blood specimen / Unknown Venipuncture / Unknown 10/08/2024 10:33 AM EDT 10/08/2024 10:43 AM EDT Ji Crow DO LAB BLOOD ORDERABLES Final Result Performing Organization Address City/[facility]/ZIP Co de Phone Number [facility] [address] [place] [address], [place] [phone] * Ethanol (10/08/2024 10:33 AM EDT) Ethanol Level <3 0 - 10 mg/dL LAB CHEMISTRY METHOD 10/08/2024 4:53 PM EDT [facility] Blood Venous blood specimen / Unknown Venipuncture / Unknown 10/08/2024 10:33 AM EDT 10/08/2024 10:[address] [place] LAB BLOOD ORDERABLES Final Resul t Performing Organization Address [facility]/ZIP Co de Phone Number [facility] [address] [place] [address], [place] [phone] * (ABNORMAL) Comprehensive metabolic panel (10/08/2024 10:33 AM EDT) Sodium 136 133 - 145 mmol/L LAB CHEMISTRY METHOD 10/08/2024 11:24 AM EDT [facility] Potassium 4.6 3.5 - 5.5 mmol/L LAB CHEMISTRY METHOD 10/08/2024 11:24 AM EDT [facility] Chloride 105 96 - 110 mmol/L LAB CHEMISTRY METHOD 10/08/2024 11:24 AM EDT [facility] CO2 24 21 - 32 mmol/L LAB CHEMISTRY METHOD 10/08/2024 11:24 AM EDT [facility] Anion Gap 7 3 - [...] LAB CHEMISTRY METHOD 10/08/2024 11:24 AM EDT [facility] Blood Venous blood specimen / Unknown Venipuncture / Unknown 10/08/2024 10:33 AM EDT 10/08/2024 10:43 AM EDT us Ji Crow DO LAB BLOOD ORDERABLES Final Result [facility] [address] [place] [address], [place] [phone] from Last 3 Months Insurance MEDICA[place] - [place] [employer] MEDICARE ADVANTAGE Advance Directives Documents on File Type Date Recorded Patient Insurance Office Manager Expl anation Advance Directives and Living Will 10/10/2024 12:09 PM [facility] Proxy * Full Code - Default (Latest [...] Agents on File Name Relationship Healthcare Agent [facility] Communication Ame [facility] Care Agent Care Teams Pump Installation And Servicer Relationship Specialty Start Date End Date Sesar Pereyra MD [address] [place] [address] PCP - General Internal Medicine 10/08/24
--- OUTSIDE RECORDS SUMMARY | 2024-12-23 13:06 | XMS_ITS | Encounter Summary ---
Author Organization [employer] Address [address] [place] [address] Care Team Providers Care Food Sales Clerk Name Role Phone Sesar Pereyra MD Primary Care Provider [phone] Reason for Visit * Reason Onset Date Comments Med Refill 09/24/2024 Encounter Details Date Type Department Care Team ([facility] st Contact Info) Description 09/24/2024 Refill [facility] [address] [place] [address] Sesar Pereyra MD [address] [place] [address] Dislocation of left ulnohumeral joint, initial encounter [...] Description 01/01/2025 2:00 PM EDT Office Visit [facility] [address] [place] [address] Sesar Pereyra MD [address] [place] [address] 01/23/2025 3:30 PM EDT Office Visit [facility] [address] [place] [address] Sesar Pereyra MD [address] [place] [address] documented as of this encounter Visit Diagnoses Diagnosis Dislocation of left ulnohumeral joint, initial encounter documented in this encounter Additional Health Concerns Assessment Noted Time PHQ-9 Depression Total Score: 6 07/25/19 25 3:22 PM EDT documented as of this encounter Care Teams Food Sales Clerk Relationship Specialty Start Date End Date Sesar Pereyra MD [address] [place] [address] PCP - General Internal Medicine 03/01/21 [facility] 03/22/24 11/13/24 [facility] 11/14/24 documented as of this encounter
--- OUTSIDE RECORDS SUMMARY | 2024-12-23 13:06 | XMS_ITS ---
Author Name WILLIE AZEVEDO, MS. CARRIE LIM Address [address] [address] Phone [phone] Organization [facility] Care Team Providers Care Activities Volunteer Name Role Phone CARRIE TAPIA Unavailable [phone] Reason for Referral Not Available Allergies, adverse [...] mplaint [facility] [place], [place], 10/07/2024 Minor contusion of unspecified kidney, initial encounterEncntr for f/u exam aft trtmt for cond oth than malig neoplm Trans[facility] 7 Day Disch [place], 10/07/2024 Minor contusion of unspecified kidney, initial encounterEncntr for f/u exam aft trtmt for cond oth than malig neoplm Social History Sex Male Gender identity Man History of Procedures Procedures Service Procedure code Service date Servicing provider Phone# [facility] 7 Day Disch [id number] 2024-10-07 No Data Available No Data Avail able Medrec Completed within 30 Days of Discharge 1111F 2024-10-07 No Data Available No Data Availa ble Functional Status No Information Mental Status No Information Assessments Date of Service Assessments 2024-10-07 07:50:36 Minor contusion of u nspecified kidney, initial encounter Plan of Care Date of Service Plans 2024-10-07 07:50:36 Pt was discharged ho [place]. Pt states that he is safe at [...] on. 2024-10-07 Type of Visit: Marcy jack: [facility]Admit Date:09/30/2024Discharge Date: 10/06/2024Discharge diagnosis: MINOR CONTUSION OF UNSPECIFIED KIDNEY, INITIAL ENCOUNTER
--- OUTSIDE RECORDS SUMMARY | 2024-12-23 13:06 | XMS_ITS ---
Author Organization [facility] on Care Team Providers Care Movie Shot Camera Operator Name Role Phone Vaishali Aguilar Unavailable Unavailable Noelle Edwards Unavailable Unavailable Valerie Wayne Unavailable Unavailable Allergies and adverse reactions No Known Allergies Care Team Name Role Address Phone Organization Dates Noelle Edwards PCP [address] [place] [address], [place], [address], [place] (Office[place] : [facility] 2020 - 02/20/2020 Vaishali Aguilar [address] [place] [address], [address], [place] (Office): : [facility] 2020 - 02/20/2020 Valerie Wayne [address] [place] [address], [address], [place] (Office): [facility] 2020 - 02/20/2020 Immunizations Immunization Status Vaccine Details Vaccine Code CodeSystem Date Notes Influenza completed Influenza, split virus, trivalent, injectable, contains preservative lotNumber: [id number] expiry: 10/28/2020 Mfg: Flucelavax Quadrivalent Given 0.5 ml Left Deltoid intramuscularly 141 CVX created date: 02/18/2020 consent date: 02/18/2020 administer ed date: 02/18/2020 Educated by Saray Saavedra on 02/18/2020 TB 2 Step Mantoux Skin Test completed tuberculin skin test; unspecified formulation lotNumber: [id number] expiry: 11/25/2021 Mfg: sanofi P[employer]ur limited Given [...] CodeSystem Concern Status 1 ANEMIA, UNSPECIFIED [address] active 2 BREAKDOWN (MECHANICAL) OF OTHER VASCULAR GRAFTS, INITIAL ENCOUNTER [address] active 3 CHRONIC KIDNEY DISEASE, STAGE 2 (MILD) [address] active 4 CHRONIC OBSTRUCTIVE PULMONARY DISEASE, UNSPECIFIED [address] active 5 COVID-[address] active 6 ENCOUNTER FOR SURGICAL AFTERCARE FOLLOWING SURGERY ON THE CIRCULATORY SYSTEM [address] active 7 ESSENTIAL (PRIMARY) HYPERTENSION [address] active 8 GENERALIZED ANXIETY DISORDER [address] active 9 MAJOR DEPRESSIVE DISORDER, RECURRENT, UNSPECIFIED [address] active 10 PAROXYSMAL ATRIAL FIBRILLATION [address] active 11 PERIPHERAL VASCULAR DISEASE, UNSPECIFIED [address] active Reason for Referral No Reasons for Referral Entered Social History Social History Observation Description Start Date End Date Code Code System Current Smoking Status Tobacco smoking consumption unknown 598732223 SNOMED CT Sex Assigned At Male 1945 49128-4 LOINC Gender Identity Vital Signs Code Code System Vitals Name Values and Units Timing Information 02903-7 [facility] Pain Level Value=1.0 02/20/2020 9279-1 [facility] Respiratory Rate Value=18.0 Units=/m in 02/20/2020 8462-4 [facility] Blood Pressure-Diastolic Value=60 Un its=mmHg 02/20/2020 8480-6 [facility] Blood Pressure-Systolic Wxvix=421 Un its=mmHg 02/20/2020 8310-5 [facility] Body Temperature Value=97.6 Units= F 02/20/2020 8867-4 [facility] Heart rate Value=73.0 Units=/min 73515-6 [facility] O2 % BldC Oximetry Value=96.0 Units= % 02/20/2020 87152-6 [facility] Weight Umxnf=828.0 Units=Lbs 8302-2 [facility] Height Value=72.0 Units=Inches 02/12/2020
--- OUTSIDE RECORDS SUMMARY | 2024-12-23 13:07 | XMS_ITS | Encounter Summary ---
Author Organization [facility] Address [address] [place] [address] Phone Care Team Providers Care Glue Mounter Operator Name Role Phone Yolande Gomez DO Primary Car e Provider Pcp, Unknown Unavailable Unavailable Benjamin Mejia DO Unavailable [phone] Sesar Pereyra MD Primary Care Pr ovider Encounter Details Date Type Department Care Team (Latest Contact Info) Description 02/07/2020 Transcribe Orders [facility] Echocardiography [address] [place] [address] Anca Michaud PA-C [address] [place] [address] [email or web address] Encounter for therapeutic drug monitoring (Primary Dx) [...] Description 01/06/2025 2:00 PM EDT Office Visit [facility] [address], [address] [place] [address] Anuj Garcia MD, MS [address] [facility], [address] [place] [address] [email or web address] 06/12/2025 2:30 PM EST Office Visit [facility] [address] [place] [address] Benjamin Mejia, [address] [place] [address] [email or web address] documented as of this encounter Procedures Procedure Name Priority Date/Time Associated Diagnosis Comments ECG 12-LEAD Routine 02/07/2020 11:45 AM EDT Encounter for therapeutic drug monitoring documented in this encounter Results * ECG 12-LEAD (02/07/2020 11:45 AM EDT) Ventricular Rate EKG/MIN 64 BPM [facility] Atrial Rate 64 BPM [facility] MD Interval 180 ms [facility] QRS Duration 86 ms [facility] QT Interval 484 ms [facility] QTC Interval 499 ms [facility] P [place] 90 degrees [facility] R Wave [place] 2 degrees [facility] T Wave [place] 0 degrees [facility] 02/07/2020 11:4 5 AM [...] documented as of this encounter Care Teams Glue Mounter Operator Relationship Specialty Start Date End Date Yolande Gomez DO [address] [place] [address] PCP - General Internal Medicine 01/28/20 12/01/24 Sesar Pereyra MD [address] [place] [address] PCP - General Internal Medicine 12/02/24 Pcp, Unknown 01/28/20 Benjamin Mejia DO [address] [place] [address] [email or web address] Geriatric Medicine 03/04/24 documented as of this encounter Additional Source Comments The information contained in this document represents components of the legal health record. It is not the complete legal health record.[facility]
== END 2024-12-23 12:26 | disposition home or self-care (01) ==
PROVIDERS: PCP Internal Medicine; Visit Provider Nurse Practitioner Family
DX: N18.31 Chronic kidney disease, stage 3a (principal); I10 Essential (primary) hypertension
CPT/HCPCS: 99214

== ENCOUNTER 2025-03-12 11:04 | Emergency (ER) | payer MEDICARE, OTHER, SELFPAY ==
[2025-03-12 11:19] VITALS: BP 128/54; PULSE 52; PULSE 54; RESP 17; TEMP 36.6; O2SAT 90; O2SAT 94; BMI 27.9
[2025-03-12 11:20] VITALS: BP 128/54; PULSE 54; RESP 17; TEMP 36.6; O2SAT 94
--- NOTE | 2025-03-12 11:23 | ED.NAVMDI ---
HPI - Nausea/Vomiting/Diarrhea General Chief complaint: Nausea/Vomiting/Diarrhea Stated complaint: DIARRHEA X4-5D,WEAK,SICK,BODYACHES Time Seen by Provider: 03/12/25 11:14 History of Present Illness ED Provider: edgardo HPI Narrative: History of Present Illness The patient presents with four days of watery diarrhea occurring multiple times per day. He reports no blood or mucus in the stool and denies abdominal pain. He has been able to maintain oral intake and has been drinking Gatorade. The patient has taken Imodium for symptom control. He denies recent antibiotic use, travel, or consumption of unusual foods. He is not aware of any underlying gastrointestinal disorders such as inflammatory bowel disease or irritable bowel syndrome. Past history is notable for cancer of the left kidney, which was treated without nephrectomy. No other chronic medical conditions were identified during the interview. Related Data Home Medications ?Medication ?Instructions ?Recorded ?Confirmed docusate sodium 100 mg capsule 100 mg PO DAILY 08/17/21 11/21/24 atorvastatin 80 mg tablet 80 mg PO DAILY 01/27/22 11/21/24 sertraline 50 mg tablet 50 mg PO DAILY 07/06/22 11/21/24 tamsulosin 0.4 mg capsule 0.4 mg PO DAILY 03/07/23 11/21/24 cilostazol 50 mg tablet 50 mg PO BID 03/27/23 11/21/24 dextroamphetamine-amphetamine 7.5 1 tab PO DAILY 03/18/24 11/21/24 mg tablet melatonin 3 mg capsule 3 mg PO BEDTIME PRN Sleep 04/12/24 11/21/24 albuterol sulfate 90 mcg/actuation 2 puff inhalation Q4H PRN 09/09/24 11/21/24 aerosol inhaler (Ventolin HFA) Shortness Of Breath Or Wheezing oxycodone 5 mg tablet 5 mg PO Q6H PRN pain 09/09/24 11/21/24 aspirin 81 mg tablet,delayed 81 mg PO DAILY 12/23/24 release celecoxib 200 mg capsule 200 mg PO BID 12/23/24 lisinopril 20 mg tablet 20 mg PO DAILY 12/23/24 metoprolol tartrate 25 mg tablet 25 mg PO BID 12/23/24 multivitamin with iron 1 tab PO DAILY 12/23/24 quetiapine 25 mg tablet 25 mg PO BID 12/23/24 sennosides 8.6 mg capsule (senna) 8.6 mg PO BID 12/23/24 Previous Rx's ?Medication ?Instructions ?Recorded dronedarone 400 mg tablet (Multaq) 400 mg PO BID #180 tabs 03/21/24 polyethylene glycol 3350 17 gram 17 g PO BEDTIME 30 days #30 ea 06/23/24 oral powder packet furosemide 20 mg tablet 20 mg PO .every other day #90 tabs 12/23/24 gabapentin 100 mg capsule 300 mg (3 x 100 mg) PO BEDTIME 01/14/25 Pain (Scale Score 1-3) 30 days #90 caps azithromycin 500 mg tablet 500 mg PO DAILY 5 days #5 tabs 03/13/25 Allergies Allergy/AdvReac Type Severity Reaction Status Date / Time No Known Allergies (No Known Allergy Verified 03/12/25 11: Allergies*) [facility] Past Medical History Medical History (Updated 03/13/25 @ 00:01 by Scott Azar) Paroxysmal atrial flutter Renal hematoma Orthostatic lightheadedness QT prolongation Cardiac arrhythmia CHF (congestive heart failure) Acute dyspnea Glenoid fracture of shoulder Closed left scapular fracture Dislocation of left glenohumeral joint Shoulder pain, left Paroxysmal atrial fibrillation Preoperative cardiovascular examination Coronary artery disease Hypersomnia Snoring Neuropathy Atherosclerotic cardiovascular disease History of alcohol abuse History of COVID-19 On beta jose at home COPD (chronic obstructive pulmonary disease) On anticoagulant therapy History of atrial fibrillation PVD (peripheral vascular disease) Renal cell carcinoma Hypertension Depression Anxiety Diverticulitis Surgical History History of intestinal surgery History of kidney surgery H/O cardiac catheterization History of colectomy S/P femoral-femoral bypass surgery Social History Social History Household Members: Other Household Members Other:: girlfriend Housing: House Are you a primary direct care supervisor to a significant other at home: No Do you presently have visiting nurse or other home services: Yes Alcohol intake: former Patient Tobacco Use Status: Former Tobacco user Tobacco use type: Cigarette Second Hand Smoke Exposure: No Substance Use Type: Marijuana Advance Directives: No Advance Directives Information Provided: Yes Advance Directives Date on File: 06/09/21 Do you have a plan to hurt others: No Plan service: No Current occupational status: retired Current occupation: right hand dominant Physical Exam Exam: Exam: EXAM: Gen: Alert, awake, well appearing, well hydrated. Head: Atraumatic Eyes: Anicteric, Normal conjunctiva. ENT: Moist mucosa, no pallor. ? Neck: Supple. Skin: ?No observable rash or bruising on exposed or examined skin Respiratory: Breathing comfortably, No distress.Clear to auscultation bilaterally, symmetric chest expansion, No wheeze, rales, ronchi. Cardiovascular: Regular rate and rhythm. No murmurs or rub. Well perfused periphery, warm extremities. No edema. ? Abdominal: No focal tenderness. Soft, no objective distension. No palpable masses or obvious organomegaly. ?No guarding, no rebound tenderness or other peritoneal findings. : No flank tenderness. Neuro: Alert. Gross movement of all extremities intact. ? Psych: Calm. Cooperative. MSK: No grossly visible deformity. Vital signs: See flowsheet Vital Signs: Vital Signs: Last Vital Signs Temp 0 F L 03/12/25 16:49 Pulse 50 03/12/25 16:49 Resp 16 03/12/25 16:49 BP 135/53 L 03/12/25 16:49 Pulse Ox 95 03/12/25 16:49 O2 Del Method Room Air 03/12/25 16:49 BMI result Body Mass Index 27.9 Course Reevaluation(s) Reevaluation #1: 11:35 AM 03/13/2025 (Dr. Daniel Burger): Campylobacter positive PCR stool. Prescribed 5 days of azithromycin after reviewing EKG with QTC 481 over the summer. Patient is on Multaq but reasonable to start 5 day course of azithromycin this is a brief course alternative agent quinolone also can prolonged QT and this should be treated so we will go with the azithromycin I will call patient and try to get a hold of the patient patient advocate as well to inform them of this start the treatment I spoke to the brother who is going to get the medication himself or have Matilde the patient advocate go get the medication he understands Medications Administered Discontinued Medications Generic Name Dose Route Start Last Admin Trade Name Freq PRN Reason Stop Dose Admin Sodium Chloride 1,000 mls @ 999 mls/hr 03/12/25 13:15 03/12/25 15:59 Ns IV 03/12/25 14:15 Infused .Q1H1M SOTERO Infusion Medical Decision Making Medical Decision Making MDM Narrative: Medical Decision Makin-year-old male diarrhea 4 days watery no blood or mucus. No recent travel or antibiotics. No abdominal pain. Appears euvolemic comfortable he is having urgency and is feeling generally uncomfortable. Later healthcare advocate tells me that he has felt generally weak. Patient was offered acute rehab given some expressed difficulty changing himself caring for himself given this diarrheal episode but patient and patient advocate do not feel he needs this at this time. Tried to address any questions they had about the clinical care diagnostics and prognosis. Diarrheal illness of unclear cause at this time stool studies sent. He has a mild CATALINO from dehydration but was hydrated in the emergency department intravenously. No focal abdominal tenderness no GI bleeding expected management this is 4th day of illness only and is likely to improve but gave strict return precautions. Patent Preliminary Favored Differential Diagnosis: Gastroenteritis, viral syndrome, dehydration, electrolyte derangement, C diff, less likely bacterial your or enteral invasive diarrhea among additional considered etiologies Testing Interpreted Independently: ?See below for details Radiology or Lab testing Results Reviewed: ?See below for details Consults: ?See below for details Independent Historians/External Chart Reviews: ?See below for details Social Determinants of Health Impacting MDM/Planning: ?See below for details Lab Data 03/12/25 12:11 03/12/25 12:11 Labs: Lab Results 03/12/25 03/12/25 03/12/25 Range/Units 12:11 16:39 16:40 WBC 5.5 (4.8-10.8) X10*3/uL RBC 4.57 L D (4.60-5.80) X10*6/uL Hgb 13.8 L D (14.0-18.0) g/dl Hct 43.6 D (42.0-52.0) % MCV 95.4 (80.0-98.0) fL MCH 30.2 (27.0-33.0) pg MCHC 31.7 (31.0-36.0) g/dl RDW 16.5 H (11.0-16.0) % Plt Count 161 D (160-400) X10*3/uL MPV 10.4 (9.4-12.4) fL Immature Gran % (Auto) 0.4 (0.0-0.4) % Neut % (Auto) 69.9 (45-73) % Lymph % (Auto) 11.6 L (20-40) % Morton % (Auto) 16.3 H (2-11) % Eos % (Auto) 1.1 (0-4) % Baso % (Auto) 0.7 (0-2) % Lymph # (Auto) 0.6 L (1.2-4.9) X10*3/uL Morton # (Auto) 0.9 (0.1-1.2) X10*3/uL Eos # (Auto) 0.1 (0.0-0.4) X10*3/uL Baso # (Auto) 0.0 (0.0-0.2) X10*3/uL Abs Immat Gran (auto) 0.02 (0.00-0.03) X10*3/uL Absolute Neuts (auto) 3.8 (2.0-8.3) x10*3/uL Absolute Nucleated RBC 0.000 (0.0-0.012) X10*3/uL Nucleated RBC % (auto) 0.0 (0.0-0.2) /100WBC Sodium 141 (135-145) mmol/L Potassium 3.8 (3.3-5.1) mmol/L Chloride 110 H (96-108) mmol/L Carbon Dioxide 21 L (22-29) mmol/L Anion Gap 14 (12-20) BUN 22 H (9-16) mg/dL Creatinine 1.48 H (0.5-1.4) mg/dL Estim Creat Clear Calc 50.2 Estimated GFR 46 Random Glucose 101 (60-115) mg/dL Calcium 9.0 (8.4-10.2) mg/dL Magnesium 2.1 (1.6-2.6) mg/dL Total Bilirubin 0.4 (0.0-1.0) mg/dL AST 27 (5-37) U/L ALT 18 (0-40) U/L Alkaline Phosphatase 89 (39-117) U/L Total Protein 6.2 L (6.5-8.0) g/dL Albumin 3.5 (3.5-5.0) g/dL Stool Occult Blood POSITIVE (NEGATIVE) Stl C. cayetanensis PCR Not Detected (Not Detect.) Stool Rotavirus A PCR Not Detected (Not Detect.) Stl Adenov F 40/41 PCR Not Detected (Not Detect.) Stool Astrovirus (PCR) Not Detected (Not Detect.) Stool Campylobacter PCR Detected A (Not Detect.) Stool Cryptosporidium PCR Not Detected (Not Detect.) Stl Sh Tox Pr E STEC PCR Not Detected (Not Detect.) Stool E coli O157 PCR Not applicable (Not Detect.) Stl Enterotoxigenic E PCR Not Detected (Not Detect.) Stool EPEC (PCR) Not Detected (Not Detect.) Stool EAEC (PCR) Not Detected (Not Detect.) Stl E. histolytica PCR Not Detected (Not Detect.) Stool Giardia Lamblia PCR Not Detected (Not Detect.) Stl P. shigelloides PCR Not Detected (Not Detect.) Stool Salmonella PCR Not Detected (Not Detect.) Stool Sapovirus (PCR) Not Detected (Not Detect.) Stl Shigella/EIEC PCR Not Detected (Not Detect.) St Y.enterocolitica PCR Not Detected (Not Detect.) Stool Vibrio (PCR) Not Detected (Not Detect.) Stl Vibrio cholerae PCR Not Detected (Not Detect.) Stl Norovirus GI/GII PCR Not Detected (Not Detect.) C. difficile Tox B Gene POSITIVE A* (Negative) C. difficile Toxin A&B Negative (Negative) C. difficile Interpret SEE NOTE Discharge Plan Discharge Clinical Impression: Diarrhea, Acute dehydration, Acute kidney injury Patient Disposition: Home, Self-Care Instructions: Acute Diarrhea (ED) Additional Instructions: DISCHARGE DIAGNOSES: Acute diarrhea with dehydration and acute kidney injury HISTORY OF PRESENTATION: ?Diarrhea for several days EMERGENCY DEPARTMENT COURSE,TESTS, TREATMENTS: While in the ED today you received hydration we checked your lab work which showed slight injury to kidney due to likely fluid loss dehydration stool tests were ordered if you provided a sample we will sent this to the lab DISCHARGE MEDICATIONS: ?[We have made no changes to your regular medication regimen] FOLLOW-UP: ?Call your primary or general physician soon as possible to discuss your symptoms, your ED visit and to discuss follow up plans Call your primary doctor follow up you will need your kidney function and blood chemistry tests repeated within 3-5 days INSTRUCTIONS ?& RETURN PRECAUTIONS: If any symptoms change first call your primary physician, if it is after-hours your primary doctors office should have a provider welding machine operator friction you can speak with. If the symptoms are severe or very concerning to you then call 911 or return to the ED. Drink plenty of fluids and rest Daniel Mart MD Emergency Physician [facility] Prescriptions: New azithromycin 500 mg tablet 500 mg PO DAILY 5 Days Qty: 5 0RF No Action cilostazol 50 mg tablet 50 mg PO BID gabapentin 100 mg capsule 300 mg PO BEDTIME 30 Days Qty: 90 1RF atorvastatin 80 mg tablet 80 mg PO DAILY sertraline 50 mg tablet 50 mg PO DAILY polyethylene glycol 3350 17 gram Powder In Packet 17 g PO BEDTIME 30 Days Qty: 30 0RF dextroamphetamine-amphetamine 7.5 mg tablet 1 tab PO DAILY Multaq 400 mg Tablet 400 mg PO BID Qty: 180 0RF metoprolol tartrate 25 mg tablet 25 mg PO BID albuterol sulfate [Ventolin HFA] 90 mcg/actuation HFA aerosol inhaler 2 puff inhalation Q4H PRN (Reason: Shortness Of Breath Or Wheezing) oxycodone 5 mg tablet 5 mg PO Q6H PRN (Reason: pain) Rx Instructions: Partial Fill upon patient request. docusate sodium 100 mg capsule 100 mg PO DAILY celecoxib 200 mg capsule 200 mg PO BID lisinopril 20 mg tablet 20 mg PO DAILY aspirin 81 mg tablet,delayed release (DR/EC) 81 mg PO DAILY quetiapine 25 mg tablet 25 mg PO BID multivitamin with iron Tablet 1 tab PO DAILY senna 8.6 mg capsule 8.6 mg PO BID furosemide 20 mg tablet 20 mg PO .every other day Qty: 90 1RF tamsulosin 0.4 mg capsule 0.4 mg PO DAILY melatonin 3 mg capsule 3 mg PO BEDTIME PRN (Reason: Sleep) Interventions: ED Discharge Assessment Last Done: 03/12/25 16:49 Discharge Date/Time: 03/12/25 16:50 Print Language: Pashto
[2025-03-12 12:15] LABS: MANUAL DIFF FLAG NO
[2025-03-12 12:21] LABS: Hematocrit 43.6 % (42.0-52.0); Hemoglobin 13.8 g/dl (14.0-18.0); Imm Gran Abs Auto 0.02 X10*3/uL (0.00-0.03); Imm Gran Pct Auto 0.4 % (0.0-0.4); Lymphocytes Absolute Auto 0.6 X10*3/uL (1.2-4.9); Mean Corpuscular HGB Conc 31.7 g/dl (31.0-36.0); Mean Corpuscular Hemoglobin 30.2 pg (27.0-33.0); Mean Corpuscular Volume 95.4 fL (80.0-98.0); NRBC Abs Auto 0.000 X10*3/uL (0.0-0.012); NRBC Pct Auto 0.0 /100WBC (0.0-0.2); Platelet Count 161 X10*3/uL (160-400); Red Blood Count 4.57 X10*6/uL (4.60-5.80); White Blood Count 5.5 X10*3/uL (4.8-10.8)
[2025-03-12 12:37] LABS: Alanine Aminotransferase 18 U/L (0-40); Albumin Level 3.5 g/dL (3.5-5.0); Alkaline Phosphatase 89 U/L (39-117); Anion Gap 14 (12-20); Aspartate Amino Transferase 27 U/L (5-37); Blood Urea Nitrogen 22 mg/dL (9-16); Calcium 9.0 mg/dL (8.4-10.2); Carbon Dioxide 21 mmol/L (22-29); Chloride 110 mmol/L (96-108); Creatinine Clr Calc Pharmacy 50.2; Estimated Glomerular Filt Rate 46; Magnesium 2.1 mg/dL (1.6-2.6); Potassium 3.8 mmol/L (3.3-5.1); Sodium 141 mmol/L (135-145); Total Protein 6.2 g/dL (6.5-8.0)
[2025-03-12 14:11] VITALS: BP 135/53; PULSE 50; RESP 16; O2SAT 95
--- OUTSIDE RECORDS SUMMARY | 2025-03-12 14:57 | XMS_ITS | Encounter Summary ---
Author Organization [employer] Address [address] [facility] 7t [place] [address] Care Team Providers Care Cot Assembler Name Role Phone Sesar Pereyra MD Primary Care Provider [phone] Reason for Visit * Reason Onset Date Comments Med Refill 08/08/2024 Encounter Details Date Type Department Care Team ([facility] st Contact Info) Description 08/08/2024 Telephone [facility] [address] [place] [address] Sesar Pereyra MD [address] [place] [address] Med Refill Social History Tobacco Use Types [...] 0.5 MG tablet To be sent to: [facility] [address] [facility] [address] documented in this encounter Plan of Treatment Not on file documented as of this encounter Visit Diagnoses Not on filedocumented in this encounter Additional Health Concerns Assessment Noted Time PHQ-9 Depression Total Score: 6 07/25/19 25 3:22 PM EDT documented as of this encounter Care Teams Cot Assembler Relationship Specialty Start Date End Date Sesar Pereyra MD [address] [place] [address] PCP - General Internal Medicine 03/01/21 [facility] 03/22/24 11/13/24 [facility] 11/14/24 documented as of this encounter
--- OUTSIDE RECORDS SUMMARY | 2025-03-12 14:57 | XMS_ITS | Encounter Summary ---
Author Organization [employer] Address [address] [facility] 7t [place] [address] Care Team Providers Care Wardrobe Mistress Name Role Phone Sesar Pereyra MD Primary Care Provider [phone] Reason for Visit * Reason Onset Date Comments Med Refill 04/02/2024 Encounter Details Date Type Department Care Team ([facility] st Contact Info) Description 04/02/2024 Telephone [facility] [address] [place] [address] Sesar Pereyra MD [address] [place], [place] [phone] Med Refill Social History Tobacco Use Types [...] 9:39 AM EST Medication was sent to [id number] on 04/01/24 #30 with 11 refills. * Telephone Encounter - Miri Young - 04/02/2024 9:33 AM EST TC from pt requesting medication refill. Medications needing refill : metoprolol tartrate (Lopressor) 25 MG tablet To be sent to: [facility] documented in this encounter Plan of Treatment Not on file documented as of this encounter Visit Diagnoses Not on filedocumented in this encounter Additional Health Concerns Assessment Noted Time PHQ-9 Depression Total Score: 16 024 10:59 AM EDT documented as of this encounter Care Teams Wardrobe Mistress Relationship Specialty Start Date End Date Sesar Pereyra MD [address] [place] [address] PCP - General Internal Medicine 03/01/21 [facility] 03/22/24 11/13/24 [facility] 11/14/24 documented as of this encounter
--- OUTSIDE RECORDS SUMMARY | 2025-03-12 14:57 | XMS_ITS | Encounter Summary ---
Author Organization [employer] Address [address] [facility] 7t [place] [address] Care Team Providers Care Calender Runner Name Role Phone Sesar Pereyra MD Primary Care Provider [phone]- [phone] Reason for Visit * Reason Onset Date Comments Med Refill 04/11/2024 Encounter Details Date Type Department Care Team (Late st Contact Info) Description 04/11/2024 Refill [facility] [address] [place] [address] Natasha Jiang MD [address] [place] [address] Closed nondisplaced fracture of acromial end of [...] documented as of this encounter Care Teams Calender Runner Relationship Specialty Start Date End Date Sesar Pereyra MD [address] [place] [address] PCP - General Internal Medicine 03/01/21 [facility] 03/22/24 11/13/24 [facility]/14[facility]24 documented as of this encounter
--- OUTSIDE RECORDS SUMMARY | 2025-03-12 14:57 | XMS_ITS | Encounter Summary ---
Author Organization [employer] Address [address] [facility] [address] [place] [address] Care Team Providers Care Forest Ecology Professor Name Role Phone Sesar Pereyra MD Primary Care Provider [phone] Encounter Details Date Type Department Care Team (Late st Contact Info) Description 04/02/2024 Orders Only [facility] [address] [place] [address] Provider, MD Jazmyn Social History Tobacco Use [...] documented as of this encounter Care Teams Forest Ecology Professor Relationship Specialty Start Date End Date Sesar Pereyra MD [address] [place] [address] PCP - General Internal Medicine 03/01/21 [facility] 03/22/24 11/13/24 [facility] 11/14/24 documented as of this encounter
--- OUTSIDE RECORDS SUMMARY | 2025-03-12 14:57 | XMS_ITS | Encounter Summary ---
Author Organization [employer] Address [address] [facility] 7t [place] [address] Care Team Providers Care Supervisor Microwave Name Role Phone Sesar Pereyra MD Primary Care Provider [phone] Reason for Visit * Reason Onset Date Comments Hospital Follow-up 09/17/2024 Encounter Details Date Type Department Care Team ([facility] [facility] st Contact Info) Description 09/17/2024 Telephone [facility] [address] [place] [address] Sesar Pereyra MD [address] [place] [address] Hospital Follow-up Social History Tobacco Use Types Packs/Day [...] * Telephone Encounter - Miri Young - 09/17/2024 1:58 PM EDT Tc from pt requesting a HDF appt. Hospital: [facility] Date of admission: 09/10/2024 Discharge date: 09/14/2024 Diagnosed: Pneumonia *Send message to [facility] Coordinators documented in this encounter Plan of Treatment Not on file documented as of this encounter Visit Diagnoses Not on filedocumented in this encounter Additional Health Concerns Assessment Noted Time PHQ-9 Depression Total Score: 6 07/25/19 3:22 PM EDT documented as of this encounter Care Teams Supervisor Microwave Relationship Specialty Start Date End Date Sesar Pereyra MD [address] [place] [id number] PCP - General Internal Medicine 03/01/21 [facility] 03/22/24 11/13/24 [facility] 11/14/24 documented as of this encounter
--- OUTSIDE RECORDS SUMMARY | 2025-03-12 14:57 | XMS_ITS | Encounter Summary ---
Author Organization [employer] Address [address] [facility] 7[address] [place] [address] Care Team Providers Care Over Hauler Helper Name Role Phone Sesar Pereyra MD Primary Care Provider [phone] Encounter Details Date Type Department Care Team ([facility] st Contact Info) Description 04/01/2024 Orders Only [facility] [address] [place], [place] [phone] Sesar Pereyra MD [address] [place] [address] Essential hypertension (Primary Dx) Social History Tobacco [...] documented as of this encounter Care Teams Over Hauler Helper Relationship Specialty Start Date End Date Sesar Pereyra MD [address] [place] [address] PCP - General Internal Medicine 03/01/21 [facility] 03/22/24 11/13/24 [facility]/14[facility]24 documented as of this encounter
--- OUTSIDE RECORDS SUMMARY | 2025-03-12 14:57 | XMS_ITS | Encounter Summary ---
Author Organization [employer] Address [address] [facility] 7t [place] [address] Care Team Providers Care Biometrics Consultant Name Role Phone Sesar Pereyra MD Primary Care Provider [phone] Encounter Details Date Type Department Care Team ([facility] st Contact Info) Description 09/18/2024 Orders Only [facility] [address] [place], [place] [phone] Sesar Pereyra MD [address] [place] [address] Dislocation of left ulnohumeral joint, initial encounter (Primary Dx) Social History Tobacco Use Types [...] Diagnosis Dislocation of left ulnohumeral joint, initial encounter- Primary documented in this encounter Additional Health Concerns Assessment Noted Time PHQ-9 Depression Total Score: 6 07/25/19 25 3:22 PM EDT documented as of this encounter Care Teams Biometrics Consultant Relationship Specialty Start Date End Date Sesar Pereyra MD [address] [place] [id number] PCP - General Internal Medicine 03/01/21 [facility] 03/22/24 11/13/24 [facility]24 documented as of this encounter
--- OUTSIDE RECORDS SUMMARY | 2025-03-12 14:57 | XMS_ITS | Encounter Summary ---
Author Organization [employer] Address [address] [facility] 7t [place] [address] Care Team Providers Care Job Analyst Name Role Phone Sesar Pereyra MD Primary Care Provider [phone] Reason for Visit * Reason Onset Date Comments Med Refill 09/24/2024 Encounter Details Date Type Department Care Team ([facility] st Contact Info) Description 09/24/2024 Refill [facility] [address] [place] [address] Sesar Pereyra MD [address] [place] [address] Dislocation of left ulnohumeral joint, initial encounter [...] documented as of this encounter Care Teams Job Analyst Relationship Specialty Start Date End Date Sesar Pereyra MD [address] [place] [address] PCP - General Internal Medicine 03/01/21 [facility] 03/22/24 11/13/24 [facility] 11/14/24 documented as of this encounter
--- OUTSIDE RECORDS SUMMARY | 2025-03-12 14:57 | XMS_ITS | Clinical Summary ---
Author Organization [employer] Address [address] [facility] [address] [place] [address] Care Team Providers Care Grain Ii Farmworker Name Role Phone Sesar Pereyra MD Primary Care Provider [phone] Allergies No known active allergies Medications gabapentin (Neurontin) 100 MG capsule 03/11/20 23 Active sertraline (Zoloft) 50 MG tablet 05/18/19 24 Active cilostazol (Pletal) 50 MG tabletIndicatio ns:PVD (peripheral vascular disease) TAKE ONE TABLET BY MOUTH TWICE A DAY 60 tablet 5 04/30/20 24 Active Additional Information Patient not taking.Reported on 10/10/2024 tamsulosin (Flomax) 0.4 MG 24 hr capsule Take 1 capsule (0.4 mg) by mouth Once per day. 30 capsule 2 05/07/19 25 Active atorvastatin (Lipitor) 80 MG tabletIndicatio ns:Hypercholest erolemia Take 1 tablet (80 mg) by mouth Once per day. 28 tablet 11 05/23/19 25 Active hydrALAZINE (Apresoline) 25 MG tablet Take 1 tablet by mouth 2 times daily. 07/06/19 25 Active amphetamine-dex troamphetamine (Adderall) 7.5 MG tabletIndicatio ns:Memory disturbance Take 1 tablet (7.5 mg) by mouth Once per day. 28 tablet 08/13/19 25 Active Additional Information Patient not taking.Reported on 10/10/2024 magnesium oxide (Mag-Ox) 400 mg tablet Take 2 tablets by mouth Once per day. Active potassium chloride ER (Micro-K) 10 MEQ ER capsule Take 1 capsule by mouth Once per day. 09/16/19 25 Active metoprolol succinate XL (Toprol-XL) 50 MG 24 hr tablet Take 1 tablet by mouth Once per day. Do not crush or chew. Active ferrous sulfate (Fe Tabs) 325 (65 Fe) MG EC tabletIndicatio ns:Anemia, unspecified type Take 1 tablet (325 mg) by mouth with breakfast. Do not crush, chew, or split. 30 tablet 11 10/15/19 25 2025 Active clonazePAM (KlonoPIN) 0.5 MG tablet Take 1 tablet (0.5 mg) by mouth 2 times daily. Do not start before October 28, 2024. 60 tablet 10/29/19 25 Active naloxone (Narcan) 4 mg/0.1 mL nasal spray Administer 1 spray (4 mg) into affected nostril(s) if needed for opioid reversal. May repeat every 2-3 minutes if needed, alternating nostrils, until medical assistance becomes available. 2 each 2 01/03/20 25 2025 Active docusate sodium (Colace) 100 MG capsule TAKE 1 CAPSULE BY MOUTH two (2) times a day 60 capsule 1 01/16/20 25 Active melatonin 3 MG tabletIndicatio ns:Primary insomnia TAKE 1 TABLET BY MOUTH AT BEDTIME 30 tablet 1 01/16/20 25 Active oxyCODONE (Roxicodone) 5 MG immediate release tabletIndicatio ns:Perinephric hematoma,Chroni c pain syndrome,Disloc ation of left ulnohumeral joint, initial encounter Take 1 tablet (5 mg) by mouth every 12 (twelve) hours if needed for severe pain. Taper. Q 12 hrs, then stop 10 tablet 02/12/20 25 Active albuterol 108 (90 Base) MCG/ACT inhaler INHALE 2 PUFFS EVERY 4 HOURS NEEDED SHORTNESS OF BREATH 8.5 g 02/14/20 25 Active apixaban (Eliquis) 5 MG tabletIndicatio ns:Longstanding persistent atrial fibrillation (CMS/HCC) (HCC) Take 1 tablet (5 mg) by mouth every 12 (twelve) hours. 60 tablet 5 02/14/20 25 Active clonazePAM (KlonoPIN) 0.5 MG tablet Take 1 tablet (0.5 mg) by mouth 2 times daily. Do not start before February 28, 2025. 60 tablet 02/29/20 Active Eliquis 5 MG tabletIndicatio ns:Longstanding persistent atrial fibrillation (CMS/HCC) (HCC) TAKE ONE TABLET BY MOUTH EVERY 12 HOURS 60 tablet 5 04/30/20 24 2024 Discontinued(R eorder (will not trigger notification to Pharmacy)) aspirin (Aspirin Low Dose) 81 MG EC tabletIndicatio ns:Primary hypertension Take 1 tablet (81 mg) by mouth Once per day. 30 tablet 5 05/23/19 25 2024 Discontinued(T herapy completed) albuterol 108 (90 Base) MCG/ACT inhaler INHALE 2 PUFFS EVERY 4 HOURS NEEDED SHORTNESS OF BREATH 8.5 g 09/21/19 25 2024 Discontinued(R eorder (will not trigger notification to Pharmacy)) Multaq 400 MG tabletIndicatio ns:Paroxysmal atrial fibrillation (CMS/HCC) (HCC) TAKE 1 TABLET BY MOUTH two (2) times a day WITH BREAKFAST AND WITH DINNER 60 tablet 1 01/14/20 25 2024 Discontinued(T herapy completed) clonazePAM (KlonoPIN) 0.5 MG tablet Take 1 tablet (0.5 mg) by mouth 2 times daily. 60 tablet 02/01/20 25 2024 Discontinued(R eorder (will not trigger notification to Pharmacy)) traMADol ER (Conzip) 100 MG 24 hr capsuleIndicati ons:Chronic left shoulder pain Take 1 capsule (100 mg) by mouth Once per day for 7 days. 7 capsule 02/18/20 25 2024 Active Problems Problem Noted Date Diagnosed Date [...] Neuropathy 01/22/2024 Numbness 01/22/2024 Paroxysmal atrial flutter (CMS/HCC) 01/22/2024 Poor historian 01/22/2024 Pseudoaneurysm of artery of upper extremity 12/31 S/P cardiac cath 01/22/2024 Sleep difficulties 01/22/2024 Snoring 01/22/2024 STEMI (ST elevation myocardial infarction) 01/21 Tobacco use disorder 01/22/2024 Ascending aortic aneurysm 01/22/2024 CKD (chronic kidney disease) stage 3, GFR 30-59 ml/min (CMS/HCC) 01/22/2024 Coronary artery calcification seen on CT scan Coronary artery disease 01/22/2024 Atherosclerotic cardiovascular disease Pseudoaneurysm 01/22/2024 Renal malignant neoplasm 01/22/2024 Essential hypertension 05/28/[address] segment elevation myocardial infarction 03/03/2021 Aortopathy associated with bicuspid aortic valve 03/03/2021 Coronary arteriosclerosis 03/03/2021 Low back pain of over 3 months duration 03/03/20 21 Renal cell carcinoma (CMS/HCC) 03/03/2021 Hypertension 03/03/2021 Cardiomyopathy 04/13/2020 History of [...] myocardial infarctio n (NSTEMI) 09/24/2019 Atrial fibrillation ([facility]) 09/24/2019 Chronic kidney disease (CKD) , stage III (moderate) (CMS/HCC) 05/19/2019 Closed fracture of sacrum with delayed healing 0 08/27/2018 DDD (degenerative disc disease), lumbar 08/28/19 19 Centrilobular emphysema 08/01/2017 Chronic obstructive pulmonary disease 08/01/2017 Atelectasis 08/01/2017 Scarring of lung 08/01/2017 Anxiety 07/06/2017 Lung nodule 10/19/2016 Overview (01/22/2024): Get with nonspecific findings on CT scan 06/2016. [address] scan should be considered Sleep disorder 02/02/2015 Overview (01/22/2024): Saw [facility] and sleep on 01/15/2015: Dr. Johnson [...] Sees this doctor once a year at [facility]. Follows up with this facility every 6 months. Pure hypercholesterolemia 07/24/2009 Thoracic aortic aneurysm (TAA) 03/11/2009 Overview (01/22/2024): IMO update Seen by [facility]. 4.[address] Herbert [...] for a time Sony done 2007 at [facility] Impotence of organic origin 07/14/2005 Atherosclerosis of [place] tribe ar marly of extremity with intermittent claudication 07/14/2005 Overview (01/22/2024): Stent on right and fem- fem bypass on left IMO update Depressive disorder 07/14/2005 Alcohol abuse, in remission 06/19/2005 Encounters Date Type Department Care Team Description 03/10/2025 Telephone [facility] [address] [place] [address] Sesar Pereyra MD Nurse Triage 02/26/2025 Telephone [facility] [address] [place] [address] Sesar Pereyra MD Med Refill 02/26/2025 Refill [facility] [address] [place] [address] Sesar Pereyra MD Perinephric hematoma; Chronic pain syndrome; Dislocation of left ulnohumeral joint, initial encounter 02/26/2025 Refill [facility] & PEDS [address] [place] [address] Sesar Pereyra MD 02/18/2025 Refill [facility] [address] [place] [address] Sesar Pereyra MD Chronic left shoulder pain 02/17/2025 Orders Only [facility] [address] [place] [address] Sesar Pereyra MD Chronic left shoulder pain (Primary Dx) 02/17/2025 Refill [facility] [address] [place] [address] Sesar Pereyra MD 02/17/2025 Refill [facility] [address] [place] [address] Sesar Pereyra MD 02/13/2025 9:00 AM EDT Office Visit [facility] [address] [place] [address] Sesar Pereyra MD Essential hypertension (Primary Dx); Longstanding persistent atrial fibrillation (CMS/HCC) (HCC); Encounter for immunization; Chronic left shoulder pain 02/13/2025 Travel 02/13/2025 Refill [facility] [address] [place] [address] Sesar Pereyra MD 02/12/2025 Telephone [facility] [address] [place] [address] Sesar Pereyra MD Chart Prep 2025 Telephone [facility] [address] [place] [address] Sesar Pereyra MD call back needed 2025 Telephone [facility] [address] [place] [address] Sesar Pereyra MD Med Refill 02/10/2025 Refill [facility] [address] [place] [address] Sesar Pereyra MD Perinephric hematoma; Chronic pain syndrome; Dislocation of left ulnohumeral joint, initial encounter 02/04/2025 Telephone [facility] [address] [place] [address] Sesar Pereyra MD FYI 02/03/2025 Refill [facility] [address] [place] [address] Sesar Pereyra MD Perinephric hematoma; Chronic pain syndrome; Dislocation of left ulnohumeral joint, initial encounter 01/30/2025 Refill [facility]S [address] [place] [address] Sesar Pereyra MD 01/30/2025 Refill [facility] [address] [place] [address] Sesar Pereyra MD 01/28/2025 Refill [facility] [address] [place] [address] Sesar Pereyra MD Perinephric hematoma; Chronic pain syndrome; Dislocation of left ulnohumeral joint, initial encounter 01/21/2025 Refill [facility] [address] [place] [address] Sesar Pereyra MD Perinephric hematoma; Chronic pain syndrome; Dislocation of left ulnohumeral joint, initial encounter 01/21/2025 Results Follow-Up [facility] [address] [place] [address] Debbi Todd, stable cleaner to Vascular Surgery 01/17/2025 Refill [facility] [address] [place] [address] Sesar Pereyra MD Anemia, unspecified type 01/14/2025 Refill [facility] [address] [place] [address] Denny Melo MD Primary insomnia 01/14/2025 Refill [facility] [address] [place] [address] Sesar Pereyra MD Perinephric hematoma; Chronic pain syndrome; Dislocation of left ulnohumeral joint, initial encounter 01/11/2025 Refill [facility] [address] [place] [address] Denny Melo MD Paroxysmal atrial fibrillation (CMS/HCC) 01/08/2025 Refill [facility]S [address] [place] [address] Sesar Pereyra MD Perinephric hematoma; Chronic pain syndrome; Dislocation of left ulnohumeral joint, initial encounter 01/02/2025 Telephone [facility] [address] [place] [address] Sesar Pereyra MD Med Refill 01/01/2025 2:00 PM EDT Office Visit [facility] [address] [place] [address] Sesar Pereyra MD Perinephric hematoma (Primary Dx); Chronic pain syndrome; Aneurysm of ascending aorta without rupture ([facility]); Tinnitus of left ear; Stage 3a chronic kidney disease ([facility]) 01/01/2025 Travel 01/01/2025 Refill [facility] [address] [place] [address] Sesar Pereyra MD Perinephric hematoma; Chronic pain syndrome; Dislocation of left ulnohumeral joint, initial encounter 12/31/2024 Telephone [facility] [address] [place] [address] Sesar Pereyra MD Chart Prep 12/27/2024 Refill [facility] [address] [place] [address] Sesar Mejias MD 12/25/2024 Refill [facility] [address] [place] [address] Sesar Pereyra MD Perinephric hematoma; Chronic pain syndrome; Dislocation of left ulnohumeral joint, initial encounter 12/21/2024 Orders Only GENERIC EXTERNAL DATA DEPARTMENT Provider, Generic External Data 12/18/2024 Refill [facility] [address] [place] [address] Sesar Mejias MD Perinephric hematoma; Chronic pain syndrome; Dislocation of left ulnohumeral joint, initial encounter 12/11/2024 Refill [facility] [address] [place] [address] Sesar Pereyra MD Perinephric hematoma; Chronic pain syndrome; Dislocation of left ulnohumeral joint, initial encounter 12/11/2024 Refill [facility] PEDS [address] [place] [address] Sesar Pereyra MD Perinephric hematoma; Chronic pain syndrome; Dislocation of left ulnohumeral joint, initial encounter 12/10/2024 Refill [facility]S [address] [place] [address] Sesar Pereyra MD Anemia, unspecified type from Last 3 Months Immunizations Immunization Administration Dates Next Due DTaP, Unspecified 08/01/2003 Influenza High-dose Quadriva lent Preservative Free 03/15/2023,03/01/2022,03/22/2021 Influenza, High Dose Seasona l, Preservative Free 02/13/2025,01/22/2024,02/18/2020,01/12,01/31/2017 Influenza, IIV3, injectable 03/01/2022,1 05/22/2020,02/18/2020,02/17,01/12/2018,01/31/2017,02/18/2016 ,02/02/2015,04/15/2014,03/07/2011,08/2009,07/09/2006 Influenza, Unspecified 02/18/2020 Influenza, trivalent, adjuvanted 02/18/2016 PPD Test 02/13/2020 Pfizer Covid-19 Vaccine 12+ 02/13/2025,1 ,01/24/2021,08/06,07/16/2020 Pneumococcal Conjugate PCV 13 12/18/2019, 018 Pneumococcal [...] Sign Reading Time Taken Comments Blood Pressure 177/81 02/13/2025 9:08 AM EDT Pulse 53 02/13/2025 9:08 AM EDT Temperature 36.8 C (98.2 F) 01/01/2025 2:09 PM EDT Respiratory Rate 20 02/13/2025 9:08 AM EDT Oxygen Saturation 94% 02/13/2025 9:08 AM EDT Inhaled Oxygen Concentration - - Weight 103 kg (226 lb) 02/13/2025 9:08 AM EDT Height 182.9 cm (6') 02/13/2025 9:08 AM EDT Body Mass Index 30.65 02/13/2025 9:08 AM EDT Plan of Treatment Health Maintenance Due Date Last Done Comments RSV Patients and Patients Aged 60 years or older (1 - 1-dose 75+ series) 2022 Alcohol/Substance Use Screening 07/24/2025 07/24/2024 Depression Screening 07/24/2025 07/24/2024, 07/25/19 SDOH Screening 07/24/2025 07/24/2024 COVID-19 Vaccine ( season) 2025 02/13/2025, 02/22/2024, 03/15/2023, Additional history exists Tobacco Screening 01/01/2026 01/01/2025 Lipid Panel 12/21/2029 12/21/2024, 03/05/2021 DTaP/Tdap/Td Vaccines (4 - Td or Tdap) 07/18/2033 07/19/2023, 06/24/2011, 08/01/2003, Additional history exists Pneumococcal Vaccine: 50+ Years Completed 12/18/2019, 01/12/2018, 02/19/2015, Additional history exists Zoster Vaccines Completed 08/18/2022, 06/01, 07/11/2014 Hepatitis C Screening Completed 07/19/2023 Influenza Vaccine Completed 02/13/2025, , 03/15/2023, Additional history exists HIB Vaccines Aged Out [...] Procedure Name Priority Date/Time Associated Diagnosis Comments AMB REFERRAL TO VASCULAR SURGERY Routine 01/17/2025 Aneurysm of ascending aorta without rupture (CMS/HCC) LIPID PANEL, STANDARD Routine 12/21/2024 10:34 AM EDT CREATININE, SERUM Routine 12/21/2024 10: 34 AM EDT UREA NITROGEN (BUN) Routine 12/21/2024 1 0:34 AM EDT ELECTROLYTE PANEL Routine 12/21/2024 10: 34 AM EDT HEPATITIS C ANTIBODY Routine 07/19/2023 11:42 AM EDT Annual physical exam from Last 3 Months or Most Recently Relevant to Health Maintenance Results * Referral to Vascular Surgery (01/17/2025) us Sesar Pereyra MD OUTPATIENT REFERRAL ORDERAB LES Final Result * (ABNORMAL) Creatinine, Serum (12/21/2024 10:34 AM EDT) Creatinine, Serum 1.41(H) 0.5 - 1.4 mg/dL [facility] Estimated Glomerular Filt Rate 49 [facility] Comment:Chronic Kidney Disea se: Estimated GFR < 60 mL/min/1.27m3Rxvrsr Kidney Disease: Estimated GFR < 15 mL/min/1.73m2 12/21/2024 10:3 4 AM EDT 12/21/2024 10:34 AM EDT us Generic External Data Provider LAB BLOOD ORDERAB LES Final Result [facility] [address] [place] [phone] * (ABNORMAL) BUN (Blood Urea Nitrogen) (12/21/2024 10:34 AM EDT) Urea Nitrogen (BUN) 25(H) 9 - 16 mg/dL [facility] 12/21/2024 10:3 4 AM EDT 12/21/2024 10:34 AM EDT Generic External Data Provider LAB BLOOD ORDERAB LES Final Result Performing Organization Address City/[facility] Co de Phone Number [facility] [address] [place] [address] [phone] * (ABNORMAL) Lipid Panel, Standard (12/21/2024 10:34 AM EDT) Triglycerides 63 <150 mg/dL [facility] Comment:Desirable Triglyceri de: less than 150 mg/dLBorderline High Triglyceride 150-199 mg/dLHigh Triglyceride: 200-499 mg/dLVery High Triglyceride: greater than or equal to 5OO mg/dL Cholesterol 75 <200 mg/dL [facility] Comment:Desirable Cholestero l: less than 200 mg/dLBorderline High Cholesterol: 200-239 mg/dLHigh Cholesterol: greater than 239 mg/dL LDL Cholesterol Calculated 27 <100 mg/dL [facility] Comment:Desirable LDL: less than 100 mg/dLNear Optimal/Above Optimal LDL: 110- 129 mg/dLBorderline High LDL: 130-159 mg/dLHigh LDL: 160-189 mg/dLVery High LDL: greater than or equal to 190 mg/dL HDL Cholesterol 36(L) >40 mg/dL [facility] Comment:Desirable HDL: great er than 40 mg/dL Note: This HDL assay may give artificially low results in patients with liver disease. 12/21/2024 10:3 4 AM EDT 12/21/2024 10:34 AM EDT us Generic External Data Provider LAB BLOOD ORDERAB LES Final Result Performing Organization Address City/[facility]/ZIP Co de Phone Number [facility] [address] [place] [phone] [phone] * (ABNORMAL) Electrolyte Panel (12/21/2024 10:34 AM EDT) Sodium 140 135 - 145 mmol/L [facility] Potassium 4.7 3.3 - 5.1 mmol/L [facility] Comment:Slight Hemolysis.Int erpret result with caution. Chloride 111(H) 96 - 108 mmol/L [facility] Carbon Dioxide 19(L) 22 - 29 mmol/L [facility] Anion Gap 15 12 - 20 [facility] 12/21/2024 10:3 4 AM EDT 12/21/2024 10:34 AM EDT us Generic External Data Provider LAB BLOOD ORDERAB LES Final Result Performing Organization Address [facility]/ZIP Co de Phone Number [facility] [address] [place] [phone] * Hepatitis C Ab (07/19/2023 11:42 AM EDT) Hepatitis C Antibody Nonreactive Nonreactive [facility] Comment:Antibodies to HCV no t detected; does not exclude early acuteHCV infection. Blood Venous blood specimen / Unknown 07/19/2023 11:42 AM EDT 07/19/2023 2:25 PM EDT us Sesar Pereyra MD LAB BLOOD ORDERABLES Final Result Performing Organization Address [facility] Co de Phone Number [facility] [address] [place] [phone] from Last 3 Months or Most Recently Relevant to Health Maintenance Insurance [employer] [facility] MEDICARE ADV[employer]AGE Advance Directives Documents on File Type Date Recorded Patient Occupational Health Coordinator Expl anation MOLST form 12/17/2024 10:05 AM Molst For Care Teams Grain Ii Farmworker Relationship Specialty Start Date End Date Sesar Pereyra MD [address] [place] [phone] PCP - General Internal Medicine 03/01/21 [facility] 11/14/24
--- OUTSIDE RECORDS SUMMARY | 2025-03-12 14:58 | XMS_ITS | Encounter Summary ---
Author Organization [employer] Address [address] [facility] [address] [place] [address] Care Team Providers Care Ict Managers Name Role Phone Sesar Pereyra MD Primary Care Provider [phone] Reason for Visit * Reason Onset Date Comments Med Refill 01/17/2025 Encounter Details Date Type Department Care Team ([facility] st Contact Info) Description 01/17/2025 Refill [facility] MED & PEDS [address] [place] [address] Sesar Pereyra MD [address] [place] [address] Anemia, unspecified type Social History Tobacco Use Types Packs/Day Years [...] as of this encounter Visit Diagnoses Diagnosis Anemia, unspecified type documented in this encounter Additional Health Concerns Assessment Noted Time PHQ-9 Depression Total Score: 6 07/25/19 25 3:22 PM EDT documented as of this encounter Care Teams Ict Managers Relationship Specialty Start Date End Date Sesar Pereyra MD [address] [place] [phone] PCP - General Internal Medicine 03/01/21 [facility] 11/14/24 documented as of this encounter
--- OUTSIDE RECORDS SUMMARY | 2025-03-12 14:58 | XMS_ITS | Encounter Summary ---
Author Organization [employer] Address [address] [facility] [address] [place] [address] Care Team Providers Care Hosiery Mender Name Role Phone Sesar Pereyra MD Primary Care Provider [phone] Reason for Visit * Reason Onset Date Comments Med Refill 01/02/2025 Encounter Details Date Type Department Care Team ([facility] st Contact Info) Description 01/02/2025 Telephone [facility] [address] [place] [address] Sesar Pereyra MD [address] [place] [address] Med Refill Social History Tobacco Use Types [...] * Telephone Encounter - Memo Bernabe - 01/02/2025 11:01 AM EDT Tc from pt calling in regards to Oxycodone stating he contacted [facility] and was informed they have not received script. Pt would like a call back to verify what's going on. Please contact pt at [phone]. documented in this encounter Plan of Treatment Not on file documented as of this encounter Visit Diagnoses Not on filedocumented in this encounter Additional Health Concerns Assessment Noted Time PHQ-9 Depression Total Score: 6 07/25/19 25 3:22 PM EDT documented as of this encounter Care Teams Hosiery Mender Relationship Specialty Start Date End Date Sesar Pereyra MD [address] [place] [phone] PCP - General Internal Medicine 03/01/21 [facility] 11/14/24 documented as of this encounter
--- OUTSIDE RECORDS SUMMARY | 2025-03-12 14:58 | XMS_ITS | Encounter Summary ---
Author Organization [employer] Address [address] [facility] [address] [place] [address] Care Team Providers Care Scale Installer Name Role Phone Sesar Pereyra MD Primary Care Provider [phone] Encounter Details Date Type Department Care Team ([facility] st Contact Info) Description 11/01/2023 Orders Only [facility] MED & PEDS [address] [place], [place] [phone] Sesar Pereyra MD [address] [place] [address] Social History Tobacco Use Types Packs/Day Years [...] documented as of this encounter Care Teams Scale Installer Relationship Specialty Start Date End Date Sesar Pereyra MD [address] [place] [phone] PCP - General Internal Medicine 03/01/21 [facility] 03/22/24 11/13/24 [facility] 11/14/24 documented as of this encounter
--- OUTSIDE RECORDS SUMMARY | 2025-03-12 14:58 | XMS_ITS | Encounter Summary ---
Author Organization [employer] Address [address] [facility] [address] [place] [address] Care Team Providers Care Optical Effects Line Up Person Name Role Phone Sesar Pereyra MD Primary Care Provider [phone] Reason for Visit * Reason Comments Med Refill Encounter Details Date Type Department Care Team ([facility] st Contact Info) Description 08/29/2023 Refill [facility] MED[facility]INE [address] [place] [address] Sesar Pereyra MD [address] [place] [address] Social History Tobacco Use Types Packs/Day Years [...] documented as of this encounter Care Teams Optical Effects Line Up Person Relationship Specialty Start Date End Date Sesar Pereyra MD [address] [place] [phone] PCP - General Internal Medicine 03/01/21 [facility] 03/22/24 11/13/24 [facility] 11/14/24 documented as of this encounter
--- OUTSIDE RECORDS SUMMARY | 2025-03-12 14:58 | XMS_ITS | Encounter Summary ---
Author Organization [employer] Address 75 [facility] 7 [place] [address] Care Team Providers Care Inventory Control Assistant Name Role Phone Sesar Pereyra MD Primary Care Provider [phone] Reason for Visit * Reason Comments Med Refill Encounter Details Date Type Department Care Team ([facility] Contact Info) Description 10/26/2022 Refill [facility] MED & PEDS 505 [place], [place] [phone] Sesar Pereyra MD 505 [place], [place] [phone] Social History Tobacco Use Types Packs/Day Years [...] on filedocumented in this encounter Care Teams Inventory Control Assistant Relationship Specialty Start Date End Date Sesar Pereyra MD 505 [place] [address] PCP - General Internal Medicine 03/01/21 [facility] 03/22/24 11/13/24 [facility] 11/14/24 documented as of this encounter
--- OUTSIDE RECORDS SUMMARY | 2025-03-12 14:58 | XMS_ITS | Encounter Summary ---
Author Organization [employer] Address 75 [facility] 7t [place] [address] Care Team Providers Care Cable Television Program Director Name Role Phone Sesar Pereyra MD Primary Care Provider [phone] Reason for Visit * Reason Onset Date Comments Med Refill 02/18/2025 Encounter Details Date Type Department Care Team ([facility] st Contact Info) Description 02/18/2025 Refill [facility] MED & PEDS 505 [place] [address] Sesar Pereyra MD 505 [place] [address] Chronic left shoulder pain Social History Tobacco Use Types Packs/Day Years [...] of this encounter Visit Diagnoses Diagnosis Chronic left shoulder pain Pain in joint, shoulder region documented in this encounter Additional Health Concerns Assessment Noted Time PHQ-9 Depression Total Score: 6 07/25/19 25 3:22 PM EDT documented as of this encounter Care Teams Cable Television Program Director Relationship Specialty Start Date End Date Sesar Pereyra MD [address] [place] [address] PCP - General Internal Medicine 03/01/21 [facility] 11/14/24 documented as of this encounter
--- OUTSIDE RECORDS SUMMARY | 2025-03-12 14:58 | XMS_ITS | Encounter Summary ---
Author Organization [employer] Address 75 [facility] 7t [place] [address] Care Team Providers Care Operations Assistant Name Role Phone Sesar Pereyra MD Primary Care Provider [phone] Encounter Details Date Type Department Care Team ([facility] st Contact Info) Description 07/10/[address] [facility] MEDICINE [address] [place] [address] Sesar Pereyra MD 505 [place] [address] Memory disturbance (Primary Dx) Social History Tobacco [...] documented as of this encounter Care Teams Operations Assistant Relationship Specialty Start Date End Date Sesar Pereyra MD [address] [place] [address] PCP - General Internal Medicine 03/01/21 [facility] 03/22/24 11/13/24 [facility] 11/14/24 documented as of this encounter
--- OUTSIDE RECORDS SUMMARY | 2025-03-12 14:58 | XMS_ITS | Encounter Summary ---
Author Organization [employer] Address 75 [facility] 7t [place] [address] Care Team Providers Care Jail Officer Name Role Phone Sesar Pereyra MD Primary Care Provider [phone] Reason for Visit * Reason Onset Date Comments Referral 01/02/2024 Encounter Details Date Type Department Care Team ([facility] st Contact Info) Description 01/02/[address] [facility] MEDICINE 230 [place] [address] Sesar Pereyra MD 505 [place] [address] Referral Social History Tobacco Use Types Packs/Day [...] - 01/02/2024 10:48 AM EDT Tc from [place] [facility] requesting a referral for a gerontologist and would like to be sent to at [facility] in [place] documented in this encounter Plan of Treatment Not on file documented as of this encounter Visit Diagnoses Not on filedocumented in this encounter Additional Health Concerns Assessment Noted Time PHQ-9 Depression Total Score: 16 024 10:59 AM EDT documented as of this encounter Care Teams Jail Officer Relationship Specialty Start Date End Date Sesar Pereyra MD [address] [place] [address] PCP - General Internal Medicine 03/01/21 [facility] 03/22/24 11[facility]13[facility]24 [facility] documented as of this encounter
--- OUTSIDE RECORDS SUMMARY | 2025-03-12 14:58 | XMS_ITS | Encounter Summary ---
Author Organization [email or web address] Address 75 [facility] 7t [place] [address] Care Team Providers Care Loan Services Professional Name Role Phone Sesar Pereyra MD Primary Care Provider [phone]- [phone] Reason for Visit * Reason Onset Date Comments call back needed 2025 Encounter Details Date Type Department Care Team ([facility] st Contact Info) Description 2025 Telephone [facility] MEDICINE 230 [place] [address] Sesar Pereyra MD 505 [place] [address] call back needed Social History Tobacco Use Types Packs/Day Years [...] Miscellaneous Notes * Telephone Encounter - Carl Noriega - 2025 4:02 PM EDT TC from pt frequenting a call back from clinical automotive sales manager to discuss Oxy . Pt feels this is unfair that he has to wait until 02/[address] Pereyra . documented in this encounter Plan of Treatment Not on file documented as of this encounter Visit Diagnoses Not on filedocumented in this encounter Additional Health Concerns Assessment Noted Time PHQ-9 Depression Total Score: 6 07/25/19 25 3:22 PM EDT documented as of this encounter Care Teams Loan Services Professional Relationship Specialty Start Date End Date Sesar Pereyra MD [address] [place] [address] PCP - General Internal Medicine 03/01/[address] [facility] 11/14/24 documented as of this encounter
--- OUTSIDE RECORDS SUMMARY | 2025-03-12 14:58 | XMS_ITS | Encounter Summary ---
Author Organization [employer] Address 75 [facility] 7t [place] [address] Care Team Providers Care Stock And Station Agent Name Role Phone Sesar Pereyra MD Primary Care Provider [phone] Reason for Visit * Reason Onset Date Comments Med Refill 01/28/2025 Encounter Details Date Type Department Care Team ([facility] st Contact Info) Description 01/28/2025 Refill [facility] MED & PEDS 505 [place] [address] Sesar Pereyra MD 505 [place] [address] Perinephric hematoma; Chronic pain syndrome; Dislocation of [...] encounter Miscellaneous Notes * Telephone Encounter - Loyda Jacobson RN - 01/28/2025 10:10 AM EDT Would you like pt to be on SHIP ERECTOR? Or is this temporary? documented in this encounter Plan of Treatment Not on file documented as of this encounter Visit Diagnoses Diagnosis Perinephric hematoma Other specified disorder of kidney and ureter Chronic pain syndrome Dislocation of left ulnohumeral joint, initial encounter documented in this encounter Additional Health Concerns Assessment Noted Time PHQ-9 Depression Total Score: 6 07/25/19 25 3:22 PM EDT documented as of this encounter Care Teams Stock And Station Agent Relationship Specialty Start Date End Date Sesar Pereyra MD [address] [place] [address] PCP - General Internal Medicine 03/01/21 [facility] 11/14/24 documented as of this encounter
--- OUTSIDE RECORDS SUMMARY | 2025-03-12 14:58 | XMS_ITS | Encounter Summary ---
Author Organization [employer] Address 75 [facility] 7t [place] [address] Care Team Providers Care Odd Ticket Clerk Name Role Phone Sesar Pereyra MD Primary Care Provider [phone] Reason for Visit * Reason Comments Med Refill Encounter Details Date Type Department Care Team ([facility] st Contact Info) Description 01/30/2025 Refill [facility] MED & PEDS 505 [place], [place] [phone] Sesar Pereyra MD 505 [place] [address] Social History Tobacco Use Types Packs/Day Years [...] documented as of this encounter Care Teams Odd Ticket Clerk Relationship Specialty Start Date End Date Sesar Pereyra MD [address] [place] [address] PCP - General Internal Medicine 03/01/21 [facility] 11/14/24 documented as of this encounter
--- OUTSIDE RECORDS SUMMARY | 2025-03-12 14:58 | XMS_ITS | Encounter Summary ---
Author Organization [employer] Address 75 [facility] 7 [place] [address] Care Team Providers Care Target Trimmer Name Role Phone Sesar Pereyra MD Primary Care Provider [phone] Encounter Details Date Type Department Care Team ([facility] st Contact Info) Description 10/13/2022 Orders Only [facility] CHC MED & PEDS 505 [place], [place] [phone] Sesar Pereyra MD 505 [place] [address] Social History Tobacco Use Types Packs/Day Years [...] on filedocumented in this encounter Care Teams Target Trimmer Relationship Specialty Start Date End Date Sesar Pereyra MD 505 [place], [place] [phone] PCP - General Internal Medicine 03/01/21 [facility] 03/22/24 11/13/24 [facility] 11/14/24 documented as of this encounter
--- OUTSIDE RECORDS SUMMARY | 2025-03-12 14:58 | XMS_ITS | Encounter Summary ---
Author Organization [employer] Address 75 [facility] 7t [place] [address] Care Team Providers Care Healthcare Corporate Account Director Name Role Phone Sesar Pereyra MD Primary Care Provider [phone] Reason for Visit * Reason Onset Date Comments Med Refill 2025 Encounter Details Date Type Department Care Team ([facility] st Contact Info) Description 2025 Telephone [facility] MED & PEDS 505 [place] [address] Sesar Pereyra MD 505 [place] [address] Med Refill Social History Tobacco Use Types [...] encounter Miscellaneous Notes * Telephone Encounter - Kole Coates - 2025 10:09 AM EDT TC from pt requesting medication refill. Medications needing refill : oxyCODONE (Roxicodone) 5 MG immediate release tablet To be sent to: [facility] - [facility] - [address] [place] [address] [place] documented in this encounter Plan of Treatment Not on file documented as of this encounter Visit Diagnoses Not on filedocumented in this encounter Additional Health Concerns Assessment Noted Time PHQ-9 Depression Total Score: 6 07/25/19 25 3:22 PM EDT documented as of this encounter Care Teams Healthcare Corporate Account Director Relationship Specialty Start Date End Date Sesar Pereyra MD [address] [place] [address] PCP - General Internal Medicine 03/01/21 [facility] 11/14/24 documented as of this encounter
--- OUTSIDE RECORDS SUMMARY | 2025-03-12 14:58 | XMS_ITS | Encounter Summary ---
Author Organization [employer] Address 75 [facility] 7t [place] [address] Care Team Providers Care Senior Operations Analyst Name Role Phone Sesar Pereyra MD Primary Care Provider [phone] Reason for Visit * Reason Onset Date Comments FYI 02/04/2025 Encounter Details Date Type Department Care Team ([facility] st Contact Info) Description 02/04/2025 Telephone [facility] MEDICINE 230 [place] [address] Sesar Pereyra MD 505 [place] [address] FYI Social History Tobacco Use Types Packs/Day [...] * Telephone Encounter - Carl Noriega - 02/04/2025 3:21 PM EDT TC from [facility] with House Call wanted to report pt's A1C point of care at 5.7 Call back not needed documented in this encounter Plan of Treatment Not on file documented as of this encounter Visit Diagnoses Not on filedocumented in this encounter Additional Health Concerns Assessment Noted Time PHQ-9 Depression Total Score: 6 07/25/19 3:22 PM EDT documented as of this encounter Care Teams Senior Operations Analyst Relationship Specialty Start Date End Date Sesar Pereyra MD [address] [place] [address] PCP - General Internal Medicine 03/01/21 [facility] 11/14/24 documented as of this encounter
--- OUTSIDE RECORDS SUMMARY | 2025-03-12 14:58 | XMS_ITS | Encounter Summary ---
Author Organization [employer] Address 75 [facility] 7t [place] [address] Care Team Providers Care Integration Lead Name Role Phone Sesar Pereyra MD Primary Care Provider [phone] Reason for Visit * Reason Onset Date Comments Med Refill 02/26/2025 Encounter Details Date Type Department Care Team ([facility] st Contact Info) Description 02/26/2025 Telephone [facility] MED & PEDS 505 [place], [place] [phone] Sesar Pereyra MD 505 [place] [address] Med Refill Social History Tobacco Use Types [...] Telephone Encounter - Loyda Jacobson RN - 02/26/2025 3:51 PM EDT TC to pt regarding the message from PCP. Pt states he does not remember PCP telling him he will stop the Tramadol. Pt c/o severe shoulder pain, states Tylenol and lidocaine patches does nothing . Ptalso admits of taking more Clonazepam than prescribed d/t severe anxiety. * Telephone Encounter - Sesar Pereyra MD - 02/26/2025 3:40 PM EDT Clonazepam refilled. Unfortunately if unsafe to continue w/ tramadol or Oxycodone as per pt's insurance. I do not feel comfortable prescribing clonazepam w/ an opioid given pt's age and so many advisory sent to me in the chart regarding the risks related to the use of both medication combined. Pt is to use tylenol 650 mg tid w/ lidocaine patch or ointment to the site of pain. * Telephone Encounter - Loyda Jacobson RN - 02/26/2025 3:34 PM EDT Pt requesting refill or Tramadol and/ or Oxycodone. Per your note from 02/13/25 Oxycodone was changed to Tramadol and no more further refills. Please advise. * Telephone Encounter - Kole Coates - 02/26/2025 3:23 PM EDT TC from pt requesting medication refill. Medications needing refill : traMADol ER (Conzip) 100 MG 24 hr capsule To be sent to: [facility] - [facility] - [address] [facility] [place] documented in this encounter Plan of Treatment Not on file documented as of this encounter Visit Diagnoses Not on filedocumented in this encounter Additional Health Concerns Assessment Noted Time PHQ-9 Depression Total Score: 6 07/25/19 3:22 PM EDT documented as of this encounter Care Teams Integration Lead Relationship Specialty Start Date End Date Sesar Pereyra MD [address] [place] [address] [place] [address] PCP - General Internal Medicine 03/01/21 [facility] 11/14/24 documented as of this encounter
--- OUTSIDE RECORDS SUMMARY | 2025-03-12 14:58 | XMS_ITS | Encounter Summary ---
Author Organization [employer] Address 75 [facility] 7t [place] [address] Care Team Providers Care Ritual Circumciser Name Role Phone Sesar Pereyra MD Primary Care Provider [phone] Reason for Visit * Reason Onset Date Comments Med Refill 02/17/2025 Encounter Details Date Type Department Care Team ([facility] st Contact Info) Description 02/17/2025 Refill [facility] MED & PEDS 505 [place] [address] Sesar Pereyra MD 505 [place] [address] Social History Tobacco Use Types Packs/Day Years [...] documented as of this encounter Care Teams Ritual Circumciser Relationship Specialty Start Date End Date Sesar Pereyra MD [address] [place] [address] PCP - General Internal Medicine 03/01/21 [facility] 11/14/24 documented as of this encounter
--- OUTSIDE RECORDS SUMMARY | 2025-03-12 14:58 | XMS_ITS | Encounter Summary ---
Author Organization [employer] Address 75 [facility] 7t [place] [address] Care Team Providers Care Billing Administrator Name Role Phone Sesar Pereyra MD Primary Care Provider [phone] Reason for Visit * Reason Onset Date Comments Med Refill 11/12/2024 Encounter Details Date Type Department Care Team ([facility] st Contact Info) Description 11/12/2024 Refill [facility] MED & PEDS 505 [place] [address] Sesar Pereyra MD 505 [place] [address] Social History Tobacco Use Types Packs/Day Years [...] documented as of this encounter Care Teams Billing Administrator Relationship Specialty Start Date End Date Sesar Pereyra MD [address] [place] [address] PCP - General Internal Medicine 03/01/21 [facility] 03/[facility]24 [facility]13[facility]24 [facility] documented as of this encounter
--- OUTSIDE RECORDS SUMMARY | 2025-03-12 14:58 | XMS_ITS | Encounter Summary ---
Author Organization [employer] Address 75 [facility] 7t [place] [address] Care Team Providers Care Senior Sales Executive Name Role Phone Sesar Pereyra MD Primary Care Provider [phone] Encounter Details Date Type Department Care Team ([facility] st Contact Info) Description 07/10/2024 Telephone [facility] MED & PEDS 505 [place], [place] [phone] Sesar Pereyra MD 505 [place] [address] Social History Tobacco Use Types Packs/Day Years [...] Preferred pharmacy [facility] - [facility] [place] - [address] [place] [address] [facility] has been without meds. documented in this encounter Plan of Treatment Not on file documented as of this encounter Visit Diagnoses Not on filedocumented in this encounter Additional Health Concerns Assessment Noted Time PHQ-9 Depression Total Score: 16 024 10:59 AM EDT documented as of this encounter Care Teams Senior Sales Executive Relationship Specialty Start Date End Date Sesar Pereyra MD [address] [place] [address] PCP - General Internal Medicine 03/01/21 [facility] 03/22/24 11/13/24 [facility] 11/14/24 documented as of this encounter
--- OUTSIDE RECORDS SUMMARY | 2025-03-12 14:58 | XMS_ITS | Clinical Summary ---
Author Organization [facility] Address [address] [place] [address] Care Team Providers Care Vice President Of Product Marketing Name Role Phone Nuha Galvin PA-C Primary [...] Date Sleep disorder 02/02/2015 Overview (02/02/2015): Saw [facility] sleep on 01/15/2015: Dr. Johnson [...] once a year. In remission Seen at [facility] urology Depression with anxiety 04/01/2014 Overview (04/01/2014): [facility] Is going to establish care at a new facility. PVD (peripheral vascular disease) with claudicat ion 04/01/2014 Overview (07/04/2014): Fem-Fem done by Dr. Hensley in 2006. Sees this doctor once a year at [facility]. Follows up with this facility every 6 months. 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
--- OUTSIDE RECORDS SUMMARY | 2025-03-12 14:58 | XMS_ITS ---
Author Name WILLIE AZEVEDO, [place]. CARRIE LIM Address [address] [address] Phone [phone] Organization [facility] Care Team Providers Care Developmental Training Counselor Name Role Phone CARRIE TAPIA Unavailable [phone] Reason for Referral Not Available Allergies, adverse [...] mplaint [facility] [place], [place], 10/07/2024 Minor contusion of unspecified kidney, initial encounterEncntr for f/u exam aft trtmt for cond oth than malig neoplm Transitional Care Mg[facility] [place], 10/07/2024 Minor contusion of unspecified kidney, initial encounterEncntr for f/u exam aft trtmt for cond oth than malig neoplm Social History Sex Male Gender identity Man History of Procedures Procedures Service Procedure code Service date Servicing provider Phone# [facility] 7 Day [place]ch [id number] 2024-10-07 No Data Available No Data Avail able Medrec Completed within 30 Days of Discharge 1111F 2024-10-07 No Data Available No Data Availa ble Functional Status No Information Mental Status No Information Assessments Date of Service Assessments 2024-10-07 07:50:36 Minor contusion of u nspecified kidney, initial encounter Plan of Care Date of Service Plans 2024-10-07 07:50:36 Pt was discharged ho [place]. Pt states that he is safe at [...] on. 2024-10-07 Type of Visit: Marcy jack: [facility]Admit Date:09/30/2024Discharge Date: 10/06/2024Discharge diagnosis: MINOR CONTUSION OF UNSPECIFIED KIDNEY, INITIAL ENCOUNTER
--- OUTSIDE RECORDS SUMMARY | 2025-03-12 14:58 | XMS_ITS | Encounter Summary ---
Author Organization [employer] Address 75 [facility] 7 [place] [address] Care Team Providers Care Egg Breaking Machine Operator Name Role Phone Sesar Pereyra MD Primary Care Provider [phone] Reason for Visit * Reason Comments Med Refill Encounter Details Date Type Department Care Team ([facility] st Contact Info) Description 10/19/2022 Refill [facility] MED & PEDS 505 [place], [place] [phone] Sesar Pereyra MD 505 [place], [place] [phone] Social History Tobacco Use Types Packs/Day Years [...] on filedocumented in this encounter Care Teams Egg Breaking Machine Operator Relationship Specialty Start Date End Date Sesar Pereyra MD 505 [place] [address] PCP - General Internal Medicine 03/01/21 [facility] 03/22/24 11/13/24 [facility] 11/14/24 documented as of this encounter
--- OUTSIDE RECORDS SUMMARY | 2025-03-12 14:58 | XMS_ITS | Encounter Summary ---
Author Organization [employer] Address 75 [facility] 7t [place] [address] Care Team Providers Care Installation Superintendent Name Role Phone Sesar Pereyra MD Primary Care Provider [phone] Reason for Visit * Reason Onset Date Comments Med Refill 02/17/2025 Encounter Details Date Type Department Care Team ([facility] st Contact Info) Description 02/17/2025 Refill [facility] MED & PEDS 505 [place] [address] Sesar Pereyra MD 505 [place] [address] Social History Tobacco Use Types Packs/Day Years [...] documented as of this encounter Care Teams Installation Superintendent Relationship Specialty Start Date End Date Sesar Pereyra MD [address] [place] [address] PCP - General Internal Medicine 03/01/21 [facility] 11/14/24 documented as of this encounter
--- OUTSIDE RECORDS SUMMARY | 2025-03-12 14:58 | XMS_ITS | Encounter Summary ---
Author Organization [employer] Address 75 [facility] 7 [place] [address] Care Team Providers Care Entry Level Web Developer Name Role Phone Sesar Pereyra MD Primary Care Provider [phone] Reason for Referral * Hospital - Outpatient (Routine) - Closed Specialty Diagnoses / Procedures Referred By Contac t Referred To Contact Diagnoses Sleep disorder Snoring Procedures Polysomnography Sesar Pereyra MD [address] [place] [address] Phone: tel: fax: [address] Phone: tel: fax: Referral ID Status Reason Start Date Expiration Date Visits Re quested Visits Authorized [id number] Closed 08/02/2024 08/02/2025 1 1 Encounter Details Date Type Department Care Team (Late st Contact Info) Description 08/01/2024 Orders Only [facility] MED & PEDS [address] [place] [address] Sesar Pereyra MD [address] [place] [address] Sleep disorder (Primary Dx); Snoring Social History [...] PM EDT Narrative 08/26/2024 12:50 PM EDT [address] [address] XRay Report Signed Patient: Alex Nettles MR#: [id number] : 1945 Acct:[id number] Age/Sex: 79 / M ADM Date: 08/26/24 Loc: .ED Attending Dr: Ordering Physician: Lonny Delgado Date of Service: 08/26/24 Procedure(s): XR chest 2V Accession Number(s): [id number] cc: Sesar Pereyra MD; Lonny Delgado EXAMINATION: [...] 08/26/24 1248 DD/ 1235 TD/TT: 08/26/24 1240 Respite Coordinator: Procedure Note Donotuseinterpreter, Image - 08/26/[address] [address] XRay Report Signed Patient: Alex NettlesMR#: [id number] : 1945cct:[id number] Age/Sex: 79 / MADM Date: 08/26/24 Loc: .ED Attending Dr: Ordering Physician: Lonny Delgado Date of Service: 08/26/24 Procedure(s): XR chest 2V Accession Number(s): [id number] cc: Sesar Pereyra MD; Lonny Delgado EXAMINATION: [...] 08/26/24 1248 DD/ 1235 TD/TT: 08/26/24 1240 Respite Coordinator: [facility] External Provider IMG XR PROCEDURES Final Result * XR Shoulder 2+ Views Left (08/01/2024 10:00 AM EDT) Anatomical Region Laterality Modality Upper Extremities, Shoulder Left Radi ographic Imaging 08/01/2024 10:0 0 AM EDT Narrative 08/02/2024 8:13 AM EDT [facility] [address] [place] [address] XRay Report Signed Patient: Alex Nettles MR#: [id number] : 1945 Acct:[id number] Age/Sex: 79 / M ADM Date: 08/01/24 Loc: JACLYN Attending Dr: Royce Kothari MD Ordering Physician: Royce Kothari MD Date of Service: 08/01/24 Procedure(s): XR shoulder LT min 2V Accession Number(s): [id number] cc: Sesar Pereyra MD; Royce Kothari MD [...] Signed By: <Electronically signed by Kalin Donald MD in OV> 08/02/24 0811 DD/ 1000 TD/TT: 08/01/24 1005 Respite Coordinator: Procedure Note Donotuseinterpreter, Image - 08/02/2024 [facility] [address] [place] [address] XRay Report Signed Patient: Alex NettlesMR#: [id number] : 1945cct:[id number] Age/Sex: 79 / MADM Date: 08/01/24 Loc: JACLYN Attending Dr: Royce Kothari MD Ordering Physician: Royce Kothari MD Date of Service: 08/01/24 Procedure(s): XR shoulder LT min 2V Accession Number(s): [id number] cc: Sesar Pereyra MD; Royce Kothari MD [...] 08/02/24 0811 DD/ 1000 TD/TT: 08/01/24 1005 Respite Coordinator: [facility] External Provider IMG XR PROCEDURES Final Result documented in this encounter Visit Diagnoses Diagnosis Sleep disorder- Primary Unspecified sleep disturbance Snoring Other dyspnea and respiratory abnormality documented in this encounter Additional Health Concerns Assessment Noted Time PHQ-9 Depression Total Score: 6 07/25/19 25 3:22 PM EDT documented as of this encounter Care Teams Entry Level Web Developer Relationship Specialty Start Date End Date Sesar Pereyra MD [address] [place] [address] PCP - General Internal Medicine 03/01/21 [facility] 03/22/24 11/13/24 [facility] 11/14/24 documented as of this encounter
--- OUTSIDE RECORDS SUMMARY | 2025-03-12 14:58 | XMS_ITS | Encounter Summary ---
Author Organization [employer] Address 75 [facility] 7t [place] [address] Care Team Providers Care Tattoo And Body Artist Name Role Phone Sesar Pereyra MD Primary Care Provider [phone] Reason for Visit * Reason Onset Date Comments fyi 09/11/2024 Encounter Details Date Type Department Care Team ([facility] st Contact Info) Description 09/11/2024 Telephone [facility] [address] [place] [address] Sesar Pereyra MD [address] [place] [address] fyi Social History Tobacco Use Types Packs/Day [...] 2:46 PM EDT Tc to pt regarding [facility] stay for pneumonia from 08/26 to 08/29 for his status after being discharged and to offer an ED follow-up appointment. Unable to reach pt, left message to call back. * Telephone Encounter - Desi Gutierrez - 09/11/2024 2:26 PM EDT Tc from pt to report was admitted at the [facility] 3 days ago. Diagnosis: pneumonia. documented in this encounter Plan of Treatment Not on file documented as of this encounter Visit Diagnoses Not on filedocumented in this encounter Additional Health Concerns Assessment Noted Time PHQ-9 Depression Total Score: 6 07/25/19 25 3:22 PM EDT documented as of this encounter Care Teams Tattoo And Body Artist Relationship Specialty Start Date End Date Sesar Pereyra MD [address] [place] [address] PCP - General Internal Medicine 03/01/21 [facility] 03/22/24 11/13/24 [facility] 11/14/24 documented as of this encounter
--- OUTSIDE RECORDS SUMMARY | 2025-03-12 14:58 | XMS_ITS | Encounter Summary ---
Author Organization [employer] Address 75 [facility] 7t [place] [address] Care Team Providers Care Hair Colorist Name Role Phone Sesar Pereyra MD Primary Care Provider [phone] Reason for Visit * Reason Onset Date Comments Med Refill 01/21/2025 Encounter Details Date Type Department Care Team ([facility] st Contact Info) Description 01/21/2025 Refill [facility] MED & PEDS [address] [place] [address] Sesar Pereyra MD 505 [place] [address] Perinephric hematoma; Chronic pain syndrome; Dislocation of [...] documented as of this encounter Care Teams Hair Colorist Relationship Specialty Start Date End Date Sesar Pereyra MD [address] [place] [address] PCP - General Internal Medicine 03/01/[address] [facility] 11/14/24 documented as of this encounter
--- OUTSIDE RECORDS SUMMARY | 2025-03-12 14:58 | XMS_ITS | Encounter Summary ---
Author Organization [employer] Address 75 [facility] 7t [place] [address] Care Team Providers Care American History Professor Name Role Phone Sesar Pereyra MD Primary Care Provider [phone] Reason for Visit * Reason Onset Date Comments Med Refill 02/03/2025 Encounter Details Date Type Department Care Team ([facility] st Contact Info) Description 02/03/2025 Refill [facility] MED & PEDS [address] [place] [address] Sesar Pereyra MD 505 [place] [address] Perinephric hematoma; Chronic pain syndrome; Dislocation of [...] Telephone Encounter - Loyda Jacobson RN - 02/03/2025 3:38 PM EDT Fyi. Tc to pt to discuss Oxycodone taper. Pt was upset, stated he is going to PT x2 week and has increased pain after PT. Wants to discuss pain management with PCP. Televisit scheduled for 02/13/25 at 9am. documented in this encounter Plan of Treatment Not on file documented as of this encounter Visit Diagnoses Diagnosis Perinephric hematoma Other specified disorder of kidney and ureter Chronic pain syndrome Dislocation of left ulnohumeral joint, initial encounter documented in this encounter Additional Health Concerns Assessment Noted Time PHQ-9 Depression Total Score: 6 07/25/19 3:22 PM EDT documented as of this encounter Care Teams American History Professor Relationship Specialty Start Date End Date Sesar Pereyra MD [address] [place] [address] PCP - General Internal Medicine 03/01/21 [facility] 11/14/24 documented as of this encounter
--- OUTSIDE RECORDS SUMMARY | 2025-03-12 14:58 | XMS_ITS | Encounter Summary ---
Author Organization [employer] Address 75 [facility] 7t [place] [address] Care Team Providers Care Heavy Machinery Operator Name Role Phone Sesar Pereyra MD Primary Care Provider [phone] Reason for Visit * Reason Onset Date Comments Nurse Triage 03/10/2025 Encounter Details Date Type Department Care Team ([facility] st Contact Info) Description 03/10/2025 Telephone [facility] MEDICINE [address] [place] [address] Sesar Pereyra MD 505 [place] [address] Nurse Triage Social History Tobacco Use Types [...] encounter Miscellaneous Notes * Telephone Encounter - Jayshree Rubi RN - 03/10/2025 2:21 PM EST Return call placed to the pt in regard to reported diarrhea symptoms. Per the pt these symptoms first started yesterday. The pt reports having 4-5 very watery loose stools per day. The pt has taken no new medications or antibiotics. Pt denies any N/V or abdominal cramping. No blood noted in the pt stool. Afebrile. The pt is getting dizzy and lightheaded. Pt advised that this is primarily due to losing electrolytes and fluids through the consistent diarrhea. The pt has been trying to drink Gatorade and is going to eat chicken soap tonight for dinner. Pt also advised to talk to the pharmacist regarding what anti diarrheal medication the pt can take but Pepto Bismol and Immodium AD was recommended. Pt advised if symptoms don't improve overnight or worsen to call back the office. Pt agreeableand stated understanding. Protocol Used: Diarrhea (Adult) Protocol-Based Disposition: See in Office or Video Visit within 3 Days Video visit not offered Positive Triage Questions: * Mild diarrhea (e.g., 1-3 or more stools than normal in past 24 hours) diarrhea and present > 7days (Exception: Chronic diarrhea that is not worse.) * Mild-Moderate diarrhea (e.g., 1-6 times / day more than normal) * All higher-acuity triage questions were negative * Telephone Encounter - Liana Mcadams - 03/10/2025 1:55 PM EST Symptom: Diarrhea Outcome: Schedule an appointment to be seen within 24 hours Reason: Caller denied all higher acuity questions The caller accepted this outcome. PCP Dr. Pereyra documented in this encounter Plan of Treatment Not on file documented as of this encounter Visit Diagnoses Not on filedocumented in this encounter Additional Health Concerns Assessment Noted Time PHQ-9 Depression Total Score: 6 07/25/19 25 3:22 PM EDT documented as of this encounter Care Teams Heavy Machinery Operator Relationship Specialty Start Date End Date Sesar Pereyra MD [address] [place] [address] PCP - General Internal Medicine 03/01/21 [facility] 11/14/24 documented as of this encounter
--- OUTSIDE RECORDS SUMMARY | 2025-03-12 14:58 | XMS_ITS | Encounter Summary ---
Author Organization [employer] Address 75 [facility] 7t [place] [address] Care Team Providers Care Chief Design Drafter Name Role Phone Sesar Pereyra MD Primary Care Provider [phone] Reason for Visit * Reason Comments Med Refill Encounter Details Date Type Department Care Team ([facility] st Contact Info) Description 10/30/2023 Refill [facility] MED & PEDS [address] [place], [place] [phone] Sesar Pereyra MD 505 [place] [address] PVD (peripheral vascular disease) (CMS/HCC); Longstanding persistent [...] Visit Diagnoses Diagnosis PVD (peripheral vascular disease) Unspecified peripheral vascular disease Longstanding persistent atrial fibrillation (CMS/HCC) (HCC) documented in this encounter Additional Health Concerns Assessment Noted Time PHQ-9 Depression Total Score: 16 024 10:59 AM EDT documented as of this encounter Care Teams Chief Design Drafter Relationship Specialty Start Date End Date Sesar Pereyra MD [address] [place] [address] PCP - General Internal Medicine 03/01/21 [facility] 03/22/24 11/13/24 [facility]/14[facility]24 documented as of this encounter
--- OUTSIDE RECORDS SUMMARY | 2025-03-12 14:58 | XMS_ITS | Encounter Summary ---
Author Organization [employer] Address 75 [facility] 7t [place] [address] Care Team Providers Care Seismograph Operator Name Role Phone Sesar Pereyra MD Primary Care Provider [phone] Encounter Details Date Type Department Care Team ([facility] st Contact Info) Description 02/17/2025 Orders Only [facility] MED & PEDS [address] [place], [place] [phone] Sesar Pereyra MD 505 [place] [address] Chronic left shoulder pain (Primary Dx) Social History Tobacco Use Types [...] encounter Visit Diagnoses Diagnosis Chronic left shoulder pain- Primary Pain in joint, shoulder region documented in this encounter Additional Health Concerns Assessment Noted Time PHQ-9 Depression Total Score: 6 07/25/19 25 3:22 PM EDT documented as of this encounter Care Teams Seismograph Operator Relationship Specialty Start Date End Date Sesar Pereyra MD [address] [place] [address] PCP - General Internal Medicine 03/01/21 [facility] 11/14/24 documented as of this encounter
--- OUTSIDE RECORDS SUMMARY | 2025-03-12 14:58 | XMS_ITS | Encounter Summary ---
Author Organization [employer] Address 75 [facility] 7 [place] [address] Care Team Providers Care Child Care Giver Name Role Phone Sesar Pereyra MD Primary Care Provider [phone] Reason for Referral * Consultation (Routine) - Closed Specialty Diagnoses / Procedures Referred By Contac t Referred To Contact Geriatric Medicine Diagnoses Memory disturbance Sesar Pereyra MD [address] [place] [address] Phone: tel: fax: [facility] [address] [place] [address] Phone: tel: fax: Referral ID Status Reason Start Date Expiration Date V isits Requested Visits Authorized [id number] Closed Specialty Services Required 01/11/2024 01/10/2025 1 1 Encounter Details Date Type Department Care Team (Late st Contact Info) Description 01/11/2024 Orders Only [facility] MED & PEDS [address] [place], [place] [phone] Sesar Pereyra MD [address] [place], [place] [phone] Memory disturbance (Primary Dx) Social History Tobacco [...] documented as of this encounter Care Teams Child Care Giver Relationship Specialty Start Date End Date Sesar Pereyra MD [address] [place] [address] PCP - General Internal Medicine 03/01/21 [facility] 03/22/24 11/13/24 [facility] 11/14/24 documented as of this encounter
--- OUTSIDE RECORDS SUMMARY | 2025-03-12 14:58 | XMS_ITS | Encounter Summary ---
Author Organization [employer] Address 75 [facility] 7t [place] [address] Care Team Providers Care Rn Mds Name Role Phone Sesar Pereyra MD Primary Care Provider [phone] Reason for Visit * Reason Onset Date Comments fyi 09/02/2024 Encounter Details Date Type Department Care Team ([facility] st Contact Info) Description 09/02/2024 Telephone [facility] [address] [place] [address] Sesar Pereyra MD [address] [place] [address] fyi Social History Tobacco Use Types Packs/Day [...] discharge interacts with [place]. Any questions contact [phone] documented in this encounter Plan of Treatment Not on file documented as of this encounter Visit Diagnoses Not on filedocumented in this encounter Additional Health Concerns Assessment Noted Time PHQ-9 Depression Total Score: 6 07/25/19 25 3:22 PM EDT documented as of this encounter Care Teams Rn Mds Relationship Specialty Start Date End Date Sesar Pereyra MD [address] [place] [address] PCP - General Internal Medicine 03/01/21 [facility] 03/22/24 11/13/24 [facility] 11/14/24 documented as of this encounter
--- OUTSIDE RECORDS SUMMARY | 2025-03-12 14:58 | XMS_ITS | Encounter Summary ---
Author Organization [employer] Address 75 [facility] 7t [place] [address] Care Team Providers Care Parts Identification Technician Name Role Phone Sesar Pereyra MD Primary Care Provider [phone] Reason for Visit * Reason Onset Date Comments Med Refill 11/06/2024 Encounter Details Date Type Department Care Team ([facility] st Contact Info) Description 11/06/2024 Refill [facility] MED & PEDS [address] [place] [address] Sesar Pereyra MD 505 [place] [address] Social History Tobacco Use Types Packs/Day Years [...] documented as of this encounter Care Teams Parts Identification Technician Relationship Specialty Start Date End Date Sesar Pereyra MD [address] [place] [address] PCP - General Internal Medicine [facility]01[facility]13/24 [facility] 11/14/24 documented as of this encounter
--- OUTSIDE RECORDS SUMMARY | 2025-03-12 14:58 | XMS_ITS | Encounter Summary ---
Author Organization [employer] Address 75 [facility] 7t [place] [address] Care Team Providers Care Production Machinist Name Role Phone Sesar Pereyra MD Primary Care Provider [phone] Reason for Visit * Reason Onset Date Comments Med Refill 11/05/2024 Encounter Details Date Type Department Care Team ([facility] st Contact Info) Description 11/05/2024 Refill [facility] MED & PEDS 505 [place] [address] Sesar Pereyra MD 505 [place] [address] Perinephric hematoma; Chronic pain syndrome; Dislocation of [...] encounter Miscellaneous Notes * Telephone Encounter - Deric Gilmore MD - 11/05/2024 3:40 PM EDT Medication was filled 6 days ago per PDMP documented in this encounter Plan of Treatment [...] as of this encounter Care Teams Production Machinist Relationship Specialty Start Date End Date Sesar Pereyra MD [address] [place] [address] PCP - General Internal Medicine [facility]01[facility] 11/13/24 [facility] 11/14/24 documented as of this encounter
--- OUTSIDE RECORDS SUMMARY | 2025-03-12 14:58 | XMS_ITS | Encounter Summary ---
Author Organization [employer] Address 75 [facility] 7t [place] [address] Care Team Providers Care Set Decorator Name Role Phone Sesar Pereyra MD Primary Care Provider [phone] Reason for Visit * Reason Comments Med Refill Encounter Details Date Type Department Care Team ([facility] st Contact Info) Description 10/30/2024 Refill [facility] MED & PEDS [address] [place], [place] [phone] Sesar Pereyra MD 505 [place] [address] Perinephric hematoma; Chronic pain syndrome; Dislocation of [...] as of this encounter Care Teams Set Decorator Relationship Specialty Start Date End Date Sesar Pereyra MD [address] [place] [address] PCP - General Internal Medicine 03/01/21 [facility] 03/22/24 11/13/24 [facility] 11/14/24 documented as of this encounter
--- OUTSIDE RECORDS SUMMARY | 2025-03-12 14:59 | XMS_ITS | Encounter Summary ---
Author Organization [employer] Address 75 [facility] 7t [place] [address] Care Team Providers Care Program Services Planner Name Role Phone Sesar Pereyra MD Primary Care Provider [phone] Encounter Details Date Type Department Care Team ([facility] st Contact Info) Description 04/29/2024 Orders Only [facility] MED & PEDS [address] [place], [place] [phone] Sesar Pereyra MD [address] [place] [address] Closed nondisplaced fracture of acromial end of [...] documented as of this encounter Care Teams Program Services Planner Relationship Specialty Start Date End Date eSsar Pereyra MD [address] [place] [address] PCP - General Internal Medicine 03/01/21 [facility] 03/22/24 11/13/24 [facility]24 documented as of this encounter
--- OUTSIDE RECORDS SUMMARY | 2025-03-12 14:59 | XMS_ITS | Encounter Summary ---
Author Organization [employer] Address 75 [facility] 7t [place] [address] Care Team Providers Care Military Equipment Specialist Name Role Phone Sesar Pereyra MD Primary Care Provider [phone] Reason for Visit * Reason Onset Date Comments Nurse Triage 09/04/2024 Encounter Details Date Type Department Care Team ([facility] st Contact Info) Description 09/04/2024 Telephone [facility] MEDICINE [address] [place] [address] Sesar Pereyra MD [address] [place] [address] Nurse Triage Social History Tobacco Use Types [...] past 3 days. Pt was seen in [facility] 08/29/24 with dx of pneumonia and prescribed [...] become worse * Telephone Encounter - Carl Hari - 09/04/2024 4:29 PM EDT Symptom: Diarrhea Outcome: Schedule an appointment to be seen within 24 hours Reason: Caller denied all higher acuity questions The caller accepted this outcome. *pt was in [facility] due to pneumonia documented in this encounter Plan of Treatment Not on file documented as of this encounter Visit Diagnoses Not on filedocumented in this encounter Additional Health Concerns Assessment Noted Time PHQ-9 Depression Total Score: 6 07/25/19 25 3:22 PM EDT documented as of this encounter Care Teams Military Equipment Specialist Relationship Specialty Start Date End Date Sesar Pereyra MD [address] [place] [address] PCP - General Internal Medicine 03/01/21 [facility] 03/22/24 11/13/24 [facility] 11/14/24 documented as of this encounter
--- OUTSIDE RECORDS SUMMARY | 2025-03-12 14:59 | XMS_ITS | Encounter Summary ---
Author Organization [employer] Address 75 [facility] 7t [place] [address] Care Team Providers Care Hammer Repairer Name Role Phone Sesar Pereyra MD Primary Care Provider [phone] Reason for Visit * Reason Onset Date Comments Med Refill 10/11/2024 Encounter Details Date Type Department Care Team ([facility] st Contact Info) Description 10/11/2024 Refill [facility] MED & PEDS [address] [place] [address] Sesar Pereyra MD 505 [place] [address] Social History Tobacco Use Types Packs/Day Years [...] documented as of this encounter Care Teams Hammer Repairer Relationship Specialty Start Date End Date Sesar Pereyra MD [address] [place] [address] PCP - General Internal Medicine [facility] documented as of this encounter
--- OUTSIDE RECORDS SUMMARY | 2025-03-12 14:59 | XMS_ITS | Encounter Summary ---
Author Organization [employer] Address 75 [facility] 7t [place] [address] Care Team Providers Care Production Laborer Name Role Phone Sesar Pereyra MD Primary Care Provider +1- [phone] Reason for Visit * Reason Onset Date Comments Med Refill 04/26/2024 Encounter Details Date Type Department Care Team ([facility] st Contact Info) Description 04/26/2024 Telephone [facility] MEDICINE [address] [place] [address] Sesar Pereyra MD [address] [place], [place] [phone] Med Refill Social History Tobacco Use Types [...] 7.5 MG tablet To be sent to: [facility] - [place], [place] - [address] documented in this encounter Plan of Treatment Not on file documented as of this encounter Visit Diagnoses Not on filedocumented in this encounter Additional Health Concerns Assessment Noted Time PHQ-9 Depression Total Score: 16 024 10:59 AM EDT documented as of this encounter Care Teams Production Laborer Relationship Specialty Start Date End Date Sesar Pereyra MD [address] [place] [address] PCP - General Internal Medicine 03/01/21 [facility] 03/22/24 11/13/24 [facility] 11/14/24 documented as of this encounter
--- OUTSIDE RECORDS SUMMARY | 2025-03-12 14:59 | XMS_ITS | Encounter Summary ---
Author Organization [employer] Address 75 [facility] 7t [place] [address] Care Team Providers Care Automobile Lights Assembler Name Role Phone Sesar Pereyra MD Primary Care Provider +1 [phone] Encounter Details Date Type Department Care Team (Late st Contact Info) Description 06/24/2024 Orders Only [facility] MEDICINE 230 [place] [address] Sesar Pereyra MD 505 [place] [address] Paroxysmal atrial fibrillation (CMS/HCC) (Primary Dx) Social [...] encounter Visit Diagnoses Diagnosis Paroxysmal atrial fibrillation (CMS/HCC) (HCC)- Primary Atrial fibrillation documented in this encounter Additional Health Concerns Assessment Noted Time PHQ-9 Depression Total Score: 16 024 10:59 AM EDT documented as of this encounter Care Teams Automobile Lights Assembler Relationship Specialty Start Date End Date Sesar Pereyra MD [address] [place] [address] PCP - General Internal Medicine 03/01/21 [facility] 03/22/24 11/13/24 [facility] 11/14/24 documented as of this encounter
--- OUTSIDE RECORDS SUMMARY | 2025-03-12 14:59 | XMS_ITS | Encounter Summary ---
Author Organization [employer] Address 75 [facility] 7t [place] [address] Care Team Providers Care Microstrategy Reports Developer Name Role Phone Sesar Pereyra MD Primary Care Provider +1 [phone] Reason for Visit * Reason Onset Date Comments Medication Question 06/21/2024 Encounter Details Date Type Department Care Team ([facility] st Contact Info) Description 06/21/2024 Telephone [facility] MEDICINE [address] [place] [address] Sesar Pereyra MD 505 [place] [address] Medication Question Social History Tobacco Use Types [...] encounter Miscellaneous Notes * Telephone Encounter - Saravananguevara PatinoRobert - 06/21/2024 9:35 AM EST Tc from [...] to Discontinue the medication. Contact Conrad at [phone] Ext [phone] The Voicemail is private so you are able to Leave a message in there. documented in this encounter Plan of Treatment Not on file documented as of this encounter Visit Diagnoses Not on filedocumented in this encounter Additional Health Concerns Assessment Noted Time PHQ-9 Depression Total Score: 16 024 10:59 AM EDT documented as of this encounter Care Teams Microstrategy Reports Developer Relationship Specialty Start Date End Date Sesar Pereyra MD [address] [place] [address] PCP - General Internal Medicine 03/01/21 [facility] 03/22/24 11/13/24 [facility] 11/14/24 documented as of this encounter
--- OUTSIDE RECORDS SUMMARY | 2025-03-12 14:59 | XMS_ITS | Encounter Summary ---
Author Organization [employer] Address 75 [facility] 7t [place] [address] Care Team Providers Care Office Systems Technology Instructor Name Role Phone Sesar Pereyra MD Primary Care Provider +1- [phone] Reason for Visit * Reason Onset Date Comments Med Refill 04/18/2024 Encounter Details Date Type Department Care Team ([facility] st Contact Info) Description 04/18/2024 Telephone [facility] MEDICINE 230 [place] [address] Sesar Pereyra MD 505 [place], [place] [phone] Med Refill Social History Tobacco Use Types [...] needing refill : To be sent to: [facility] - [place], [place] - [address] [place] [address] STEET documented in this encounter Plan of Treatment Not on file documented as of this encounter Visit Diagnoses Not on filedocumented in this encounter Additional Health Concerns Assessment Noted Time PHQ-9 Depression Total Score: 16 024 10:59 AM EDT documented as of this encounter Care Teams Office Systems Technology Instructor Relationship Specialty Start Date End Date Sesar Pereyra MD 505 [place] [address] PCP - General Internal Medicine 03/01/21 [facility] 03/22/24 11/13/24 [facility] 11/14/24 documented as of this encounter
--- OUTSIDE RECORDS SUMMARY | 2025-03-12 14:59 | XMS_ITS | Encounter Summary ---
Author Organization [employer] Address 75 [facility] 7 [place] [address] Care Team Providers Care Inspector Rough Castings Name Role Phone Sesar Pereyra MD Primary Care Provider +1 [phone] Reason for Visit * Reason Comments Med Refill Encounter Details Date Type Department Care Team ([facility] st Contact Info) Description 06/10/[address] [facility] CHC MED & PEDS 505 [place], [place] [phone] Sesar Pereyra MD 505 [place], [place] [phone] Primary insomnia Social History Tobacco Use Types [...] sleep documented in this encounter Care Teams Inspector Rough Castings Relationship Specialty Start Date End Date Sesar Pereyra MD [address] [place], [place] [phone] PCP - General Internal Medicine 03/01/21 [facility] 03/22/24 11/13/24 [facility] 11/14/24 documented as of this encounter
--- OUTSIDE RECORDS SUMMARY | 2025-03-12 14:59 | XMS_ITS | Encounter Summary ---
Author Organization [employer] Address 75 [facility] 7t [place] [address] Care Team Providers Care Contract Forester Name Role Phone Sesar Pereyra MD Primary Care Provider +1 [phone] Encounter Details Date Type Department Care Team (Late st Contact Info) Description 10/10/2024 Orders Only [facility] 230 [place] [address] Provider, MD Jazmyn Social History Tobacco Use [...] Date/Time Associated Diagnosis Comments ECG 12-LEAD Routine 10/09/2024 9:20 AM EDT ECG 12-LEAD Routine 10/08/2024 9:52 AM EDT US EXTREMITY NON-VASCULAR RIGHT LIMITED Routine 10/08/2024 9:43 AM EDT US ABDOMEN LIMITED Routine 10/08/2024 9:41 AM EDT documented in this encounter Results * ECG 12 lead (10/09/2024 9:20 AM EDT) us Historical Provider ECG ORDERABLES Final Res ult * ECG 12 lead (10/08/2024 9:52 AM EDT) Historical Provider MD ECG ORDERABLES Final Res ult * US EXTREMITY NON-VASCULAR RIGHT LIMITED (10/08/2024 9:43 AM EDT) Anatomical Region Laterality Modality Ultrasound us Historical Provider IMG US PROCEDURES Final R esult * US Abdomen Limited (10/08/2024 9:41 AM EDT) Anatomical Region Laterality Modality Abdomen Ultrasound us Historical Provider IMG US PROCEDURES Final R esult documented in this encounter Visit Diagnoses Not on filedocumented in this encounter Additional Health Concerns Assessment Noted Time PHQ-9 Depression Total Score: 6 07/25/19 25 3:22 PM EDT documented as of this encounter Care Teams Contract Forester Relationship Specialty Start Date End Date Beauzile, Thevenin, MD [address] [place] [address] PCP - General Internal Medicine 03/01/21 [facility] 03/22/24 11/13/24 [facility] 11/14/24 documented as of this encounter
--- OUTSIDE RECORDS SUMMARY | 2025-03-12 14:59 | XMS_ITS | Encounter Summary ---
Author Organization [email or web address] Address 75 [facility] 7t [place] [address] Care Team Providers Care Gunner'S Mate M Name Role Phone Sesar Pereyra MD Primary Care Provider +1 [phone] Reason for Visit * Reason Onset Date Comments Hospital Follow-up 10/07/2024 Encounter Details Date Type Department Care Team ([facility] st Contact Info) Description 10/07/2024 Telephone [facility] CHC MED & PEDS 505 [place], [place] [phone] Sesar Pereyra MD 505 [place], [place] [phone] Hospital Follow-up Social History Tobacco Use Types [...] encounter Miscellaneous Notes * Telephone Encounter - Kelsey Holt - 10/07/2024 10:29 AM EDT Tc from pt health advocate Teresa requesting a HDF appt. Hospital: [facility] and then transferred to [facility] Date of admission: 09/29/24 Discharge date: 10/06/24 Diagnosed: right kidney hematoma Contact Teresa at [phone] documented in this encounter Plan of Treatment Not on file documented as of this encounter Visit Diagnoses Not on filedocumented in this encounter Additional Health Concerns Assessment Noted Time PHQ-9 Depression Total Score: 6 07/25/19 25 3:22 PM EDT documented as of this encounter Care Teams Gunner'S Mate M Relationship Specialty Start Date End Date Sesar Pereyra MD [address] [place] [address], [place] [address] PCP - General Internal Medicine 03/01/21 [facility] 03/22/24 11/13/24 [facility] 11/14/24 documented as of this encounter
--- OUTSIDE RECORDS SUMMARY | 2025-03-12 14:59 | XMS_ITS | Clinical Summary ---
Author Organization [facility] Address [address] [place] [phone] Phone Care Team Providers Care Crusher Feeder Name Role Phone Sesar Pereyra MD Primary Care Provider +1 -[phone] Allergies No known active allergies Medications albuterol [...] Date Diagnosed Date Renal hematoma, right 10/08/2024 Surgical History Surgery Date Site/Laterality Comments VASECTOMY PROCEDURE: PA VASECTOMY UNI/BI SPX W/POSTOP SEMEN EXAMS NASAL SEPTUM SURGERY PROCEDURE: PA SEPTOPLASTY/SUBMUCOUS RESECJ W/WO CARTILAGE GRF; COMMENT: septoplasty HERNIA REPAIR 1997 - 05/05, PROCEDURE: LAPAROSCOPY, INGUINAL HERNIA REPAIR OTHER SURGICAL HISTORY 02/03 PROCEDURE: STENT, NON-COR, TEM W/O DEL; COMMENT: RIGHT EXTERNAL ILIAC ARTERY OTHER SURGICAL HISTORY PROCEDURE: PA COLOSTOMY/SKIN LEVEL CECOSTOMY; COMMENT: AND COLECTOMY FOR DIVERTICULITIS OTHER SURGICAL HISTORY PROCEDURE: PA RENAL NDSC NEPHROS/PYELOSTOMY RESCJ TUMOR; COMMENT: 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 INCISIONAL HERNIA REPAIR 2008 PROCEDURE: PA IMPLANT MESH OPN HERNIA RPR/DEBRIDEMENT CLOSURE OTHER SURGICAL HISTORY 2006 PROCEDURE: PA BYP OTH/THN VEIN FEM-ANT TIBL PST TIBL/PRONEAL; COMMENT: left: fem- fem bypass COLONOSCOPY 05/17/2006 PROCEDURE: HISTORICAL COLONOSCOPY; COMMENT: diverticulosis; repeat in 10 yrs COLONOSCOPY W/ POLYPECTOMY 03/22/2017 PROCEDURE: PA COLSC FLX W/RMVL OF TUMOR POLYP LESION [...] 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 Father (Age 49) CT x 3, ET [place] Maternal Grandfather (Age 74) Pn eumonia Maternal Grandmother Mother (Age 73) UTI, CVA Other Paternal Grandfather (Age 62) Paternal Grandmother (Age 91) Sister Alive Breast cancer Social History Tobacco Use Types Packs/Day Years Used Date Smoking Tobacco: Former Cigarettes 1 Q uit: 07/26/2005 Smokeless Tobacco: Never Alcohol Use Standard Drinks/Week Comments Yes 0 (1 standard drink = 0.6 oz pur e alcohol) Interpersonal Safety Answer Date Record ed Physical Abuse Unrecognized value 10/08/2024 Verbal Abuse Unrecognized value 10/08/2024 Sex and Gender Information Value Date [...] Health Maintenance Due Date Last Done Comments Colorectal Cancer Screening: Colonoscopy 1945 Hepatitis A Vaccines (1 of 2 - Risk 2-dose series) 1966 RSV Immunization Adult Patients (1 - 1-dose 75+ series) 2022 Hepatitis C Screening 04/09/2022 Medicare Annual Wellness Visit 04/09/2022 Social Influencers of Health Screening 04/09/2022 Depression Screening 05/01/2024 COVID-19 Vaccine ( season) 2024 02/22/2024, 03/15/2023, [...] Procedure Name Priority Date/Time Associated Diagnosis Comments BASIC METABOLIC PANEL Routine 10/10/2024 6:28 AM EDT from Last 3 Months or Most Recently Relevant to Health Maintenance Results * (ABNORMAL) Basic metabolic panel (10/10/2024 6:28 AM EDT) Sodium 138 133 - 145 mmol/L LAB CHEMISTRY METHOD 10/10/2024 7:44 AM [facility] Potassium 3.7 3.5 - 5.5 mmol/L LAB CHEMISTRY METHOD 10/10/2024 7:44 AM [facility] Chloride 104 96 - 110 mmol/L LAB CHEMISTRY METHOD 10/10/2024 7:44 AM [facility] CO2 27 21 - 32 mmol/L LAB CHEMISTRY METHOD 10/10/2024 7:44 AM [facility] Anion Gap 7 3 - 11 LAB CHEMISTRY METHOD 10/10/2024 7:44 AM [facility] Glucose 98 70 - 100 mg/dL LAB CHEMISTRY METHOD 10/10/2024 7:44 AM [facility] BUN 15 5 - 25 mg/dL LAB CHEMISTRY METHOD 10/10/2024 7:44 AM EDT [facility] Creatinine 1.03 0.70 - 1.30 mg/dL LAB CHEMISTRY METHOD 10/10/2024 7:44 AM EDT [facility] eGFR 75 >=60 mL/min/1. 73m2 LAB CHEMISTRY METHOD 10/10/2024 7:44 AM EDT [facility] Comment:Calculation based on the Chronic Kidney Disease Epidemiology Collaboration (CKD-EPI) equation refit without adjustment for race. BUN/Creatinine Ratio 14.6 LAB CHEMISTRY METHOD 10/10/2024 7:44 AM T [facility] Calcium 8.2(L) 8.5 - 10.5 mg/dL LAB CHEMISTRY METHOD 10/10/2024 7:44 AM EDT [facility] Blood Venous blood specimen / Unknown Venipuncture / Unknown 10/10/2024 6:28 AM EDT 10/10/2024 6:53 AM EDT us Audrey Tavera APPRENTICE/LINEMAN LAB BLOOD ORDERABLES Final Resul t [facility] [address] [place] [address], from Last 3 Months or Most Recently Relevant to Health Maintenance Insurance MEDICAID - [place] [employer] MEDICARE ADVANTAGE Advance Directives Documents on File Type Date Recorded Patient Certified Ethical Hacker Expl anation Advance Directives and Living Will 10/10/2024 12:09 PM Ame Godwin Health Care Proxy * Full Code - Default [...] Agents on File Name Relationship Healthcare Agent Relationshi p Communication Ame Godwin Friend Health Care Agent Care Teams Crusher Feeder Relationship Specialty Start Date End Date Sesar Pereyra MD [address] [place] [address] PCP - General Internal Medicine 10/08/24
--- OUTSIDE RECORDS SUMMARY | 2025-03-12 14:59 | XMS_ITS | Encounter Summary ---
Author Organization [employer] Address 75 [facility] 7t [place] [address] Care Team Providers Care Bead Preparer Name Role Phone Sesar Pereyra MD Primary Care Provider +1- [phone] Reason for Visit * Reason Onset Date Comments Med Refill 04/28/2024 Encounter Details Date Type Department Care Team ([facility] st Contact Info) Description 04/28/[address] [facility] MED & PEDS 505 [place] [address] Sesar Pereyra MD [address] [place] [address] Social History Tobacco Use Types Packs/Day Years [...] documented as of this encounter Care Teams Bead Preparer Relationship Specialty Start Date End Date Sesar Pereyra MD [address] [place] [address] PCP - General Internal Medicine 03/01/21 [facility] 03/22/24 11/13/24 [facility] 11/14/24 documented as of this encounter
--- OUTSIDE RECORDS SUMMARY | 2025-03-12 14:59 | XMS_ITS | Encounter Summary ---
Author Organization [employer] Address 75 [facility] 7t [place] [address] Care Team Providers Care Long Chain Dyeing Machine Operator Name Role Phone Sesar Pereyra MD Primary Care Provider +1 [phone] Encounter Details Date Type Department Care Team ([facility] st Contact Info) Description 10/14/2024 Orders Only [facility] CHC MED & PEDS [address] [place], [place] [phone] Sesar Pereyra MD 505 [place], [place] [phone] Anemia, unspecified type (Primary Dx) Social History Tobacco Use Types [...] this encounter Visit Diagnoses Diagnosis Anemia, unspecified type- Primary documented in this encounter Additional Health Concerns Assessment Noted Time PHQ-9 Depression Total Score: 6 07/25/19 25 3:22 PM EDT documented as of this encounter Care Teams Long Chain Dyeing Machine Operator Relationship Specialty Start Date End Date Sesar Pereyra MD [address] [place] [address] PCP - General Internal Medicine 03/01/21 [facility] 03/22/24 11/13/24 [facility] 11/14/24 documented as of this encounter
--- OUTSIDE RECORDS SUMMARY | 2025-03-12 14:59 | XMS_ITS | Encounter Summary ---
Author Organization [employer] Address 75 [facility] 7t [place] [address] Care Team Providers Care Director Of Sustainable Design Name Role Phone Sesar Pereyra MD Primary Care Provider +1- [phone] Reason for Visit * Reason Onset Date Comments Med Refill 12/10/2024 Encounter Details Date Type Department Care Team ([facility] st Contact Info) Description 12/10/2024 Refill [facility] MED & PEDS [address] [place] [address] Sesar Pereyra MD 505 [place] [address] Anemia, unspecified type Social History Tobacco Use [...] of this encounter Care Teams Director Of Sustainable Design Relationship Specialty Start Date End Date Sesar Pereyra MD [address] [place] [address] PCP - General Internal Medicine 03/01/21 [facility] 11/14/24 documented as of this encounter
--- OUTSIDE RECORDS SUMMARY | 2025-03-12 14:59 | XMS_ITS | Encounter Summary ---
Author Organization [employer] Address 75 [facility] 7t [place] [address] Care Team Providers Care Supervisor Partial Denture Department Name Role Phone Sesar Pereyra MD Primary Care Provider +1 [phone] Encounter Details Date Type Department Care Team ([facility] st Contact Info) Description 05/30/2024 Telephone [facility] MEDICINE [address] [place] [address] Sesar Pereyra MD 505 [place], [place] [phone] Social History Tobacco Use Types Packs/Day Years [...] as of this encounter Care Teams Supervisor Partial Denture Department Relationship Specialty Start Date End Date Sesar Pereyra MD [address] [place] [address] PCP - General Internal Medicine 03/01/21 [facility] 03/22/24 11/13/24 [facility] 11/14/24 documented as of this encounter
--- OUTSIDE RECORDS SUMMARY | 2025-03-12 14:59 | XMS_ITS | Encounter Summary ---
Author Organization [employer] Address [address] [facility] 7t [place] [address] Care Team Providers Care Transmissions Systems Operator Name Role Phone Sesar Pereyra MD Primary Care Provider +1 [phone] Reason for Visit * Reason Onset Date Comments fyi 05/28/2024 Encounter Details Date Type Department Care Team ([facility] st Contact Info) Description 05/28/2024 Telephone [facility] MEDICINE [address] [place] [address] Sesar Pereyra MD [address] [place] [address] fy Social History Tobacco Use Types Packs/Day [...] 05/28/2024 9:37 AM EST Tc from [facility] with [facility] informing pt verbalized to her [...] documented as of this encounter Care Teams Transmissions Systems Operator Relationship Specialty Start Date End Date Sesar Pereyra MD [address] [place] [address] PCP - General Internal Medicine 03/01/21 [facility] 03/22/24 11/13/24 [facility] 11/14/24 documented as of this encounter
--- OUTSIDE RECORDS SUMMARY | 2025-03-12 14:59 | XMS_ITS | Encounter Summary ---
Author Organization [employer] Address 75 [facility] 7t [place] [address] Care Team Providers Care Car Starter Name Role Phone Sesar Pereyra MD Primary Care Provider +1- [phone] Reason for Visit * Reason Onset Date Comments Med Refill 12/11/2024 Encounter Details Date Type Department Care Team ([facility] st Contact Info) Description 12/11/2024 Refill [facility] MED & PEDS [address] [place] [address] Sesar Pereyra MD [address] [place] [address] Perinephric hematoma; Chronic pain syndrome; Dislocation of [...] documented as of this encounter Care Teams Car Starter Relationship Specialty Start Date End Date Sesar Pereyra MD [address] [place] [address] PCP - General Internal Medicine 03/01/21 [facility] 11/14/24 documented as of this encounter
--- OUTSIDE RECORDS SUMMARY | 2025-03-12 14:59 | XMS_ITS | Encounter Summary ---
Author Organization [employer] Address [address] [facility] 7t [place] [address] Care Team Providers Care Machine Carton Marker Name Role Phone Sesar Pereyra MD Primary Care Provider +1 [phone] Reason for Visit * Reason Onset Date Comments Lab Orders 05/30/2024 Referral 05/30/2024 Encounter Details Date Type Department Care Team (Late st Contact Info) Description 05/30/2024 Telephone [facility] MEDICINE [address] [place] [address] Sesar Pereyra MD [address] [place] [address] Lab Orders; Referral Social History Tobacco Use [...] Miscellaneous Notes * Telephone Encounter - Thanh Lopezs - 05/30/2024 4:03 PM EST Tc from [...] as of this encounter Care Teams Machine Carton Marker Relationship Specialty Start Date End Date Sesar Pereyra MD [address] [place] [address] PCP - General Internal Medicine [facility]01[facility] 03/22/24 11/13/24 [facility] 11/14/24 documented as of this encounter
--- OUTSIDE RECORDS SUMMARY | 2025-03-12 14:59 | XMS_ITS | Encounter Summary ---
Author Organization [employer] Address 75 [facility] 7t [place] [address] Care Team Providers Care Pricing Manager Name Role Phone Sesar Pereyra MD Primary Care Provider +1 [phone] Encounter Details Date Type Department Care Team (Late st Contact Info) Description 10/08/2024 Orders Only [facility] [address] [place] [address] Provider, MD Jazmyn Social History Tobacco Use [...] Procedure Name Priority Date/Time Associated Diagnosis Comments CT ABDOMEN PELVIS WO CONTRAST Routine 10/08/2024 12:47 PM EDT documented in this encounter Results * CT Abdomen Pelvis w/o Contrast (10/08/2024 12:47 PM EDT) Anatomical Region Laterality Modality Body, Pelvis, Abdomen Computed T omography us Historical Provider MD CORLEY CT PROCEDURES Final R esult documented in this encounter Visit Diagnoses Not on filedocumented in this encounter Additional Health Concerns Assessment Noted Time PHQ-9 Depression Total Score: 6 07/25/19 25 3:22 PM EDT documented as of this encounter Care Teams Pricing Manager Relationship Specialty Start Date End Date Sesar Pereyra MD [address] [place] [address] PCP - General Internal Medicine 03/01/21 [facility] 03/22/24 11/13/24 [facility] 11/14/24 documented as of this encounter
[2025-03-12 16:49] VITALS: BP 135/53; PULSE 50; RESP 16; TEMP -17.7; TEMP 0; O2SAT 95
[2025-03-12 16:51] LABS: OBS Int Ctl Valid YES; OBS1 POSITIVE (NEGATIVE)
[2025-03-12 17:45] LABS: CDiff Gene PCR POSITIVE (Negative)
[2025-03-12 18:21] LABS: CDiff Toxin Negative (Negative)
[2025-03-12 18:22] LABS: CDIFF Internal ctrl Dots and bkg OK (V)
[2025-03-13 09:53] LABS: E. coli EAEC Not Detected (Not Detect.); E. coli EPEC Not Detected (Not Detect.); E. coli ETEC Not Detected (Not Detect.); E. coli STEC Not Detected (Not Detect.); Shigella sp./EIEC Not Detected (Not Detect.)
--- NOTE | 2025-03-14 16:25 | MHC.CM.ED ---
Received telephone call from brother Dao. Patient was in the ER on . Brother looking for [facility] for senior care. Patient has been active with [facility] in the past. Referral made for SN. [facility] is able to accept patient. Dr Bui made aware.
== END 2025-03-12 16:50 | disposition home or self-care (01) ==
PROVIDERS: Emergency Provider Emergency Medicine; PCP Internal Medicine
DX: N17.9 Acute kidney failure, unspecified (principal); E86.0 Dehydration; R19.7 Diarrhea, unspecified; B96.89 Other specified bacterial agents as the cause of diseases classified elsewhere; I48.0 Paroxysmal atrial fibrillation; J44.9 Chronic obstructive pulmonary disease, unspecified; I10 Essential (primary) hypertension; Z79.01 Long term (current) use of anticoagulants; Z85.528 Personal history of other malignant neoplasm of kidney
CPT/HCPCS: 36415; 80053; 82272; 83735; 85025; 87324; 87493; 87507; 96360; 96361; 99284

== ENCOUNTER 2025-04-01 14:02 | Outpatient (AMB) | payer MEDICARE, SELFPAY ==
[2025-04-01 14:11] VITALS: BP 128/68; PULSE 50; BMI 29.1
--- NOTE | 2025-04-01 14:11 | MHC.OFFVIS ---
Vital Signs 04/01/25 14:11 Height 6 ft 1 in Weight 220 lb 7.396 oz BMI 29.1 BP 128/68 Blood Pressure Location Lt brachial Position Sitting Pulse 50 Pulse Source Monitor Intake Visit Reasons: 4 mth s/p Gobiel EP Allergies No Known Allergies (No Known Allergies*) Allergy (Verified 03/12/25 11:25) Medication List - Last Reconciled 04/01/25 by Manas Rutledge MD albuterol sulfate 90 mcg/actuation (Ventolin HFA) 2 puffs inhalation Q4H PRN apixaban (Eliquis) 5 mg PO BID atorvastatin 80 mg PO DAILY celecoxib 200 mg PO BID cilostazol 50 mg PO BID dextroamphetamine-amphetamine 7.5 mg 1 tab PO DAILY docusate sodium 100 mg PO DAILY furosemide 20 mg PO .every other day gabapentin 300 mg (3 x 100 mg) PO BEDTIME 30 days melatonin 3 mg PO BEDTIME PRN metoprolol tartrate 25 mg PO BID multivitamin with iron 1 tab PO DAILY oxycodone 5 mg PO Q6H PRN polyethylene glycol 3350 17 grams PO BEDTIME 30 days quetiapine 25 mg PO BID sennosides (senna) 8.6 mg PO BID sertraline 50 mg PO DAILY tamsulosin 0.4 mg PO DAILY HPI Comments Details: Alex returns for follow-up regarding many cardiac issues. History of coronary disease and he underwent previous LAD stenting few years back. History of atrial flutter. Congestive heart failure. Peripheral vascular disease. He has had several admissions in the past year. Most recently, he was admitted both at [facility] as well as [facility] for large right-sided perinephric hematoma. That led to anemia and after the Eliquis was stopped. Following this, he had EP consultation and he underwent flutter ablation. I am not entirely clear if he is taking taking the Eliquis or not as he has not able to confirm it. With regard to other medications, again not clear if he is taking the Multaq versus amiodarone. He states he feels well. [facility] Medical History (Updated 03/13/25 @ 00:01 by Background Daemon) Paroxysmal atrial flutter Renal hematoma Orthostatic lightheadedness QT prolongation Cardiac arrhythmia CHF (congestive heart failure) Acute dyspnea Glenoid fracture of shoulder Closed left scapular fracture Dislocation of left glenohumeral joint Shoulder pain, left Paroxysmal atrial fibrillation Preoperative cardiovascular examination Coronary artery disease Hypersomnia Snoring Neuropathy Atherosclerotic cardiovascular disease History of alcohol abuse History of COVID-19 On beta jose at home COPD (chronic obstructive pulmonary disease) On anticoagulant therapy History of atrial fibrillation PVD (peripheral vascular disease) Renal cell carcinoma Hypertension Depression Anxiety Diverticulitis Surgical History History of intestinal surgery History of kidney surgery H/O cardiac catheterization History of colectomy S/P femoral-femoral bypass surgery Social History Household Members: Other Household Members Other:: girlfriend Housing: House Are you a primary career professional to a significant other at home: No Do you presently have visiting nurse or other home services: Yes Alcohol intake: former Patient Tobacco Use Status: Former Tobacco user Tobacco use type: Cigarette Second Hand Smoke Exposure: No Substance Use Type: Marijuana Advance Directives Date on File: 06/09/21 service: No Current occupational status: retired Current occupation: right hand dominant Review of Systems Const Denies weakness ENT Denies dizziness Card Denies chest pain, Denies chest pain with activity, Denies syncope, Denies rapid heart rate, Denies pedal edema, Denies edema, Denies leg edema, Denies lightheadedness, Denies palpitations, Denies dyspnea, Denies dyspnea on exertion and Denies orthopnea Resp Denies cough, Denies dyspnea and Denies dyspnea on exertion GI Denies hematochezia and Denies change in stool character Musc Denies abnormal gait, Denies muscle cramps, Denies muscle weakness, Denies numbness, Denies radiating pain into limb and Denies tingling Neuro Denies abnormal gait, Denies dizziness, Denies syncope, Denies numbness, Denies tingling and Denies weakness Endo Denies palpitations Physical Exam Vital Signs: Last Vital Signs Pulse 50 04/01/25 14:11 BP 128/68 04/01/25 14:11 BMI result Body Mass Index 29.1 Const General: comfortable and no acute distress Orientation/consciousness: patient oriented x3 HEENT Other: Unremarkable Head: Yes normal to inspection Neck Neck: Yes normal visual inspection Chest Chest palpation & inspection: normal inspection of the chest Resp Auscultation: clear to auscultation bilaterally Cardio Palpation: normal PMI Heart sounds: S1 normal heart sound present, S2 normal heart sound present, no gallops, no murmurs and no rubs GI Palpation (GI): Soft to palpation Back/Spine/Pelvis Other: unremarkable Skin General skin exam: no rashes or lesions noted Neuro General: patient oriented x3 Extrem General: Yes normal to inspection Psych Mental Status: mental status grossly normal Office Procedures EKG Details: EKG with sinus bradycardia at 50/Min; cannot exclude old septal infarct but could be from body habitus; [place] [id number], Complete Assessment & Plan Assessment & Plan (1) Paroxysmal atrial flutter: Code(s): I48.92 - Unspecified atrial flutter Category: Medical Plan: Status post atrial flutter ablation. He was previously on Multaq but post ablation he had atrial fibrillation in the EP lab and it seems he might have started amiodarone but patient cannot confirm this. No further changes made today to avoid confusion. Also with regard to Eliquis, he is not able to confirm. Per recent post ablation Holter performed at [facility] sent to me by radha nam, underlying rhythm is sinus with an average heart rate of 56/Min. No overt atrial fibrillation. Hence may not need long-term anticoagulation. We will await upcoming EP appointment before discontinuing. Discussed with Dr. Phipps. (2) Atherosclerotic cardiovascular disease: Code(s): I25.10 - Atherosclerotic heart disease of [place] coronary artery without angina pectoris Category: Medical Plan: Cardiac catheterization 2022- Prox LAD with 60% stenosis. First diagonal with ostial 100% stenosis. Circumflex with luminal irregularities. Nonobstructive disease in the RCA. s/p proximal LAD RUBIN. Clinically, no angina. Continue statins. (3) Ascending aortic aneurysm: Code(s): I71.2 - Thoracic aortic aneurysm, without rupture Category: Medical Plan: In the recent chest CT, ascending aortic size 4.7 cm. In the CTA from 2023, again 4.7 cm. Will need to be followed (4) Renal hematoma: Code(s): S37.019A - Minor contusion of unspecified kidney, initial encounter Category: Medical Plan: Status post flutter ablation. Hopefully, we can take of Eliquis after EP follow up visit. Medications: Discontinued dronedarone (Multaq) Discontinued Reason: Patient no longer taking 400 mg PO BID 180 tabs 0RF Coding Level of Care Code Est Pt Level 4 (25871) Complex visit Add On G2211 Diagnoses Paroxysmal atrial flutter I48.92 Atherosclerotic cardiovascular disease I25.10 Ascending aortic aneurysm I71.2 Renal hematoma S37.019A CPT Codes EKG - CPT: 73298-[id number], Complete ([id number])
--- OUTSIDE RECORDS SUMMARY | 2025-04-01 16:02 | XMS_ITS | Encounter Summary ---
Author Organization [employer] Address [address] [place] [address] Care Team Providers Care Photographic Laboratory Technician Name Role Phone Sesar Pereyra MD Primary Care Provider [phone] Reason for Visit * Reason Onset Date Comments fyi 09/02/2024 Encounter Details Date Type Department Care Team ([facility] st Contact Info) Description 09/02/2024 Telephone [facility] [address] [place] [address] Sesar Pereyra MD [address] [place] [address] fyi Social History Tobacco Use Types Packs/Day [...] discharge interacts with [place]. Any questions contact [phone] documented in this encounter Plan of Treatment Upcoming Encounters Date Type Department Care Team ([facility] st Contact Info) Description 04/03/2025 3:30 PM EST Office Visit [facility] MED & PEDS [address] [place] [address] Sesar Pereyra MD [address] [place] [address] documented as of this encounter Visit Diagnoses Not on filedocumented in this encounter Additional Health Concerns Assessment Noted Time PHQ-9 Depression Total Score: 6 07/25/19 25 3:22 PM EDT documented as of this encounter Care Teams Photographic Laboratory Technician Relationship Specialty Start Date End Date Sesar Pereyra MD [address] [place] [address] PCP - General Internal Medicine 03/01/21 [facility] 03/22/24 11/13/24 [facility] 11/14/24 documented as of this encounter
--- OUTSIDE RECORDS SUMMARY | 2025-04-01 16:02 | XMS_ITS | Encounter Summary ---
Author Organization [employer] Address [address] [place] [address] Care Team Providers Care Head Turning Machine Operator Name Role Phone Sesar Pereyra MD Primary Care Provider [phone] Encounter Details Date Type Department Care Team ([facility] st Contact Info) Description 04/29/2024 Orders Only [facility] [address] [place], [place] [id number] Sesar Pereyra MD [address] [place] [address] Closed nondisplaced fracture of acromial end of [...] Care Team (Late st Contact Info) Description 04/03/2025 3:30 PM EST Office Visit [facility] MED & PEDS [address] [place] [address] Sesar Pereyra MD [address] [place] [address] documented as of this encounter Visit Diagnoses Diagnosis Closed nondisplaced fracture of acromial end of right clavicle, initial encounter documented in this encounter Additional Health Concerns Assessment Noted Time PHQ-9 Depression Total Score: 16 024 10:59 AM EDT documented as of this encounter Care Teams Head Turning Machine Operator Relationship Specialty Start Date End Date Sesar Pereyra MD [address] [place] [address] PCP - General Internal Medicine 03/01/21 [facility] 03/22/24 11/13/24 [facility]/14[facility]24 documented as of this encounter
--- OUTSIDE RECORDS SUMMARY | 2025-04-01 16:02 | XMS_ITS | Encounter Summary ---
Author Organization [employer] Address [address] [place] [address] Care Team Providers Care Lieutenant Firefighter Name Role Phone Sesar Pereyra MD Primary Care Provider [phone] Encounter Details Date Type Department Care Team ([facility] st Contact Info) Description 04/01/2024 Orders Only [facility]S [address] [place], [place] [phone] Sesar Pereyra MD [address] [place] [address] Essential hypertension (Primary Dx) Social History Tobacco [...] ([facility] st Contact Info) Description 04/03/2025 3:30 PM EST Office Visit [facility] P[facility] [address] [place] [address] Sesar Pereyra MD [address] [place] [address] documented as of this encounter Visit Diagnoses Diagnosis Essential hypertension- Primary Unspecified essential hypertension documented in this encounter Additional Health Concerns Assessment Noted Time PHQ-9 Depression Total Score: 16 024 10:59 AM EDT documented as of this encounter Care Teams Lieutenant Firefighter Relationship Specialty Start Date End Date Sesar Pereyra MD [address] [place] [address] PCP - General Internal Medicine 03/01/21 [facility] 03/22/24 11/13/24 [facility] 11/14/24 documented as of this encounter
--- OUTSIDE RECORDS SUMMARY | 2025-04-01 16:02 | XMS_ITS | Clinical Summary ---
Author Organization [employer] Address [address] [facility] 7[address] [place] [address] Care Team Providers Care Senior Gamemaster Name Role Phone Sesar Pereyra MD Primary Care Provider [phone]- [phone] Allergies No known active allergies Medications gabapentin [...] 2 each 2 01/03/20 25 2025 Active oxyCODONE (Roxicodone) 5 MG immediate release [...] hours. 60 tablet 5 02/14/20 25 Active docusate sodium (Colace) 100 MG capsule TAKE 1 CAPSULE BY MOUTH two (2) times a day 60 capsule 1 03/17/20 25 Active melatonin 3 MG tabletIndicatio ns:Primary insomnia TAKE 1 TABLET BY MOUTH AT BEDTIME 30 tablet 1 03/17/20 25 Active clonazePAM (KlonoPIN) 0.5 MG tablet Take 1 tablet (0.5 mg) by mouth 2 times daily. Do not start before March 26, 2025. 60 tablet 03/26/20 Active docusate sodium (Colace) 100 MG capsule TAKE 1 CAPSULE BY MOUTH two (2) times a day 60 capsule 1 01/16/20 25 2024 Discontinued melatonin 3 MG tabletIndicatio ns:Primary insomnia TAKE 1 TABLET BY MOUTH AT BEDTIME 30 tablet 1 01/16/20 25 2024 Discontinued clonazePAM (KlonoPIN) 0.5 MG tablet Take 1 tablet (0.5 mg) by mouth 2 times daily. Do not start before February 28, 2025. 60 tablet 02/29/20 25 2024 Discontinued(R eorder (will not trigger notification to Pharmacy)) Active [...] kidney disease) stage 3, GFR 30-59 ml/min ([facility]/HCC) 01/22/2024 Coronary artery calcification seen on CT scan Coronary artery disease 01/22/2024 Atherosclerotic cardiovascular disease Pseudoaneurysm 01/22/2024 Renal malignant neoplasm 01/22/2024 Essential hypertension 05/28/[address] segment elevation myocardial infarction 03/03/2021 Aortopathy associated with bicuspid aortic valve 03/03/2021 Coronary arteriosclerosis 03/03/2021 Low back pain of over 3 months duration 03/03/20 21 Renal cell carcinoma ([facility]) 03/03/2021 Hypertension 03/03/2021 Cardiomyopathy 04/13/2020 History of [...] myocardial infarctio n (NSTEMI) 09/24/2019 Atrial fibrillation ([facility]) 09/24/2019 Chronic kidney disease (CKD) , stage [...] considered Sleep disorder 02/02/2015 Overview (01/22/2024): Saw [facility] sleep on 01/15/2015: Dr. Johnson Likely DILLAN sleep study ordered. Given that he has RLS, He may have periodic limb movement disorder which can be checked for in the study. Check ferritin. Will await sleep study. Depression with anxiety 04/01/2014 Overview (06/16/2022): Dr. Pradhan at [facility]. Is going to establish care at [...] Sees this doctor once a year at [facility]. Follows up with this facility every 6 months. 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 CHC MED & PEDS [address] [place] [address] Sesar Pereyra MD ER Follow-up 03/25/[address] [facility] MED & PEDS [address] [place] [address] Sesar Pereyra MD 03/17/2025 Telephone [facility] MED & PEDS [address] [place] [address] Sesar Pereyra MD ER Follow-up 03/14/2025 Refill [facility] MED & PEDS [address] [place], [place] [phone] Sesar Pereyra MD Primary insomnia 03/14/[address] [facility] MEDICINE [address] [place] [phone] Sesar Pereyra MD Referral 03/12/2025 Orders Only GENERIC EXTERNAL DATA DEPARTMENT Provider, Generic External Data 03/10/[address] [facility] MEDICINE [address] [place] [phone] Sesar Pereyra MD Nurse Triage 02/26/[address] [facility] CH[facility] MED & PEDS [address] [place] [address] Sesar Pereyra MD Med Refill 02/26/2025 Refill [facility] MED & PEDS [address] [place] [address] Sesar Pereyra MD Perinephric hematoma; Chronic pain syndrome; Dislocation of left ulnohumeral joint, initial encounter 02/26/[address] [facility] MED & PEDS [address] [place] [address] Sesar Pereyra MD 02/18/[address] [facility] MED & PEDS [address] [place] [address] Sesar Pereyra MD Chronic left shoulder pain 02/17/2025 Orders Only [facility] MED & PEDS [address] [place] [address] Sesar Pereyra MD Chronic left shoulder pain (Primary Dx) 02/17/2025 Refill [facility] MED & PEDS [address] [place] [address] Sesar Pereyra MD 02/17/2025 Refill [facility] MED & PEDS [address] [place] [address] Sesar Pereyra MD 02/13/2025 9:00 AM EDT Office Visit [facility] MED & PEDS [address] [place] [address] Sesar Pereyra MD Essential hypertension (Primary Dx); Longstanding persistent atrial fibrillation (CMS/HCC) (HCC); Encounter for immunization; Chronic left shoulder pain 02/13/2025 Travel 02/13/2025 Refill [facility] MED & PEDS [address] [place] [address] Sesar Pereyra MD 02/12/2025 Telephone [facility] MED [facility] PED[facility] [address] [place] [address] Sesar Pereyra MD Chart Prep [address] [facility] MEDICINE [address] [place] [address] Sesar Pereyra MD call back needed 2025 Telephone [facility] MED & PEDS [address] [place] [address] Sesar Pereyra MD Med Refill 02/10/2025 Refill [facility] MED & PEDS [address] [place] [address] Sesar Pereyra MD Perinephric hematoma; Chronic pain syndrome; Dislocation of left ulnohumeral joint, initial encounter 02/04/[address] [facility] MEDICINE [address] [place] [address] Sesar Pereyra MD FYI 02/03/2025 Refill [facility] MED & PEDS [address] [place] [address] Sesar Mejias MD Perinephric hematoma; Chronic pain syndrome; Dislocation of left ulnohumeral joint, initial encounter 01/30/2025 Refill [facility] MED [facility] PEDS [address] [place] [address] Sesar Pereyra MD 01/30/2025 Refill [facility] [address] [place] [address] Sesar Pereyra MD 01/28/2025 Refill [facility] [address] [place] [address] Sesar Pereyra MD Perinephric hematoma; Chronic pain syndrome; Dislocation of left ulnohumeral joint, initial encounter 01/21/2025 Refill [facility] MED & PEDS [address] [place] [address] Sesar Pereyra MD Perinephric hematoma; Chronic pain syndrome; Dislocation of left ulnohumeral joint, initial encounter 01/21/2025 Results Follow-Up [facility] MEDICINE [address] [place] [address] Debbi Todd, ball racker to Vascular Surgery 01/17/2025 Refill [facility] MED & PEDS [address] [place] [address] Sesar Pereyra MD Anemia, unspecified type 01/14/2025 Refill [facility] MED & PEDS [address] [place] [address] Denny Melo MD Primary insomnia 01/14/2025 Refill [facility] MED & PEDS [address] [place] [address] Sesar Pereyra MD Perinephric hematoma; Chronic pain syndrome; Dislocation of left ulnohumeral joint, initial encounter 01/11/2025 Refill [facility] MED & PEDS [address] [place] [address] Denny Melo MD Paroxysmal atrial fibrillation (CMS/HCC) 01/08/2025 Refill [facility] PED[facility] [address] [place] [address] Sesar Pereyra MD Perinephric hematoma; Chronic pain syndrome; Dislocation of left ulnohumeral joint, initial encounter 01/02/[address] [facility] MEDICINE [address] [place] [address] Sesar Pereyra MD Med Refill 01/01/2025 2:00 PM EDT Office Visit [facility] MED [facility] PEDS [address] [place] [address] Sesar Pereyra MD Perinephric hematoma (Primary Dx); Chronic pain syndrome; Aneurysm of ascending aorta without rupture ([facility]/HCC); Tinnitus of left ear; Stage 3a chronic kidney disease (CMS/HCC) 01/01/2025 Travel 01/01/2025 Refill [facility] MED [facility] PEDS [address] [place] [address] Sesar Pereyra MD Perinephric hematoma; Chronic pain syndrome; Dislocation of left ulnohumeral joint, initial encounter 12/31/2024 Telephone [facility] MED & PEDS [address] [place] [address] Sesar Pereyra MD Chart Prep from Last 3 Months Immunizations Immunization Administration [...] 02/13/2025 9:08 AM EDT Plan of Treatment Upcoming Encounters Date Type Department Care Team ([facility] st Contact Info) Description 04/03/2025 3:30 PM EST Office Visit [facility] MED & PEDS [address] [place] [address] Sesar Pereyra MD [address] [place] [address] Health Maintenance Due Date Last Done Comments RSV Patients and Patients Aged 60 years or older (1 - 1-dose 75+ series) 2022 Alcohol/Substance Use Screening 07/24/2025 07/24/2024 Depression Screening 07/24/2025 07/24/2024, 07/25/19 25 SDOH Screening 07/24/2025 07/24/2024 COVID-19 Vaccine ( [...] Procedure Name Priority Date/Time Associated Diagnosis Comments CDIFF TOXIN Routine 03/12/2025 4:40 PM EST CDIFF GENE PCR Routine 03/12/2025 4:40 PM EST OBSX1 Routine 03/12/2025 4:39 PM EST GASTROINTESTINAL PANEL Routine 4:39 PM EST AMB REFERRAL TO VASCULAR SURGERY Routine 01/17/2025 Aneurysm of ascending aorta without rupture (CMS/HCC) LIPID PANEL, STANDARD Routine 12/21/2024 10:34 AM EDT HEPATITIS C ANTIBODY Routine 07/19/2023 11:42 AM EDT Annual physical exam from Last 3 Months or Most Recently Relevant to Health Maintenance Results * CDiff Toxin (03/12/2025 4:40 PM EST) [facility] CDiff Toxin Negative Negative [facility] CDIFF Interpretation SEE NOTE [facility] Comment:Likely C. difficile colonization. Continue contactprecautions. 03/12/2025 4:40 PM EST 03/12/2025 4:42 PM EST us Generic External Data Provider LAB BODY FLUIDS A ND STOOLS ORDERABLES Final Result Performing Organization Address [facility] Co de Phone Number [facility] [address] [place] [phone] * (ABNORMAL) CDiff Gene PCR (03/12/2025 4:40 PM EST) [facility] CDiff Gene PCR POSITIVE(A A) Negative [facility] Comment:Additional C. diffic ile toxin testing to be performed. 03/12/2025 4:40 PM EST 03/12/2025 4:42 PM EST us Generic External Data Provider LAB BODY FLUIDS A ND STOOLS ORDERABLES Final Result Performing Organization Address [facility] de Phone Number [facility] [address] [place] [phone] * OBSX1 (03/12/2025 4:39 PM EST) [facility] OBS1 POSITIVE NEGATIVE [facility] 03/12/2025 4:39 PM EST 03/12/2025 4:42 PM EST Generic External Data Provider LAB BLOOD ORDERAB LES Final Result Performing Organization Address [facility] de Phone Number [facility] [address] [place] [phone] * (ABNORMAL) Gastrointestinal panel (03/12/2025 4:39 PM EST) [facility] Campylobacter Detected(A) Not Detect. [facility] Comment:Results of DETECTED CAMPYLOBACTER called to and read back byREBECCA AND ELSA on 03/13/25 at 0959 by BEAR. Plesiomonas shigelloides Not Detected Not Detect. [facility] Salmonella Not Detected Not Detect. [facility] Vibrio Not Detected Not Detect. [facility] Vibrio cholerae Not Detected Not Detect. [facility] YERSINIA ENTEROCOLITICA Not Detected Not Detect. [facility] Enteroaggregative E. coli (EAEC) Not Detected Not Detect. [facility] Enteropathogenic E. coli (EPEC) Not Detected Not Detect. [facility] Enterotoxigenic E. coli (ETEC) lt/st Not Detected Not Detect. [facility] Shiga-like toxin-producing E. coli (STEC) stx1/stx2 Not Detected Not Detect. [facility] E coli O157 Not applicable Not Detect. [facility] Comment:E. coli containing t he O157 antigen are a subset ofShiga-like toxin- producing E. coli (STEC). Shigella/Enteroinvasive E. coli (EIEC) Not Detected Not Detect. [facility] Cryptosporidium Not Detected Not Detect. [facility] Cyclospora cayetanensis Not Detected Not Detect. [facility] Entamoeba histolytica Not Detected Not Detect. [facility] Giardia lamblia Not Detected Not Detect. [facility] Adenovirus F 40/41 Not Detected Not Detect. [facility] Astrovirus Not Detected Not Detect. [facility] Norovirus GI/GII Not Detected Not Detect. [facility] Rotavirus A Not Detected Not Detect. [facility] Sapovirus Not Detected Not Detect. [facility] Comment: All results must be correlated with clinical findings.Negative results do not exclude the possibility ofgastrointestinal infection and should not be used as thesole basis for diagnosis, treatment, or other managementdecisions. Virus, bacteria, and parasite nucleic acid maypersist in vivo independently of organism viability.Additionally, some organisms may be carriedasymptomatically.Detection of organism targets does not imply that thecorresponding organisms are infectious or are the causativeagents for clinical symptoms. There is a risk of falsenegative values due to the presence of sequence variants inthe gene targets of the assay, amplification inhibitors inspecimens, or inadequate numbers of organisms foramplification.The identification of several diarrheagenic E. colipathotypes has historically relied upon phenotypiccharacteristics. This panel targets genetic determinantscharacteristic of most pathogenic strains, but may notdetect all strains having phenotypic characteristics of apathotype.The performance of this test has not been established formonitoring treatment of infection with any of the panelorganisms.This assay is performed by Multiplexed PCR, utilizing [employer] Array. 03/12/2025 4:39 PM EST 03/12/2025 4:42 PM EST us Generic External Data Provider LAB MICROBIOLOGY - GENERAL ORDERABLES Final Result [facility] [address] [place] [phone] * Referral to Vascular Surgery (01/17/2025) us Sesar Pereyra MD OUTPATIENT REFERRAL ORDERAB LES Final Result * (ABNORMAL) Lipid Panel, Standard (12/21/2024 10:34 AM EDT) Triglycerides 63 <150 mg/dL [facility] Comment:Desirable Triglyceri de: less than 150 mg/dLBorderline High Triglyceride 150-199 mg/dLHigh Triglyceride: 200-499 mg/dLVery High Triglyceride: greater than or equal to 5OO mg/dL Cholesterol 75 <200 mg/dL [facility] Comment:Desirable Cholestero l: less than 200 mg/dLBorderline High Cholesterol: 200-239 mg/dLHigh Cholesterol: greater than 239 mg/dL LDL Cholesterol Calculated 27 <100 mg/dL [facility] Comment:Desirable LDL: less than 100 mg/dLNear Optimal/Above Optimal LDL: 110- 129 mg/dLBorderline High LDL: 130-159 mg/dLHigh LDL: 160-189 mg/dLVery High LDL: greater than or equal to 190 mg/dL HDL Cholesterol 36(L) >40 mg/dL [facility] Comment:Desirable HDL: great er than 40 mg/dL Note: This HDL assay may give artificially low results in patients with liver disease. 12/21/2024 10:3 4 AM EDT 12/21/2024 10:34 AM EDT us Generic External Data Provider LAB BLOOD ORDERAB LES Final Result Performing Organization Address [facility]/ZIP Co de Phone Number [facility] [address] [place] [phone] * Hepatitis C Ab (07/19/2023 11:42 AM EDT) Hepatitis C Antibody Nonreactive Nonreactive [facility] Comment:Antibodies to HCV no t detected; does not exclude early acuteHCV infection. Blood Venous blood specimen / Unknown 07/19/2023 11:42 AM EDT 07/19/2023 2:25 PM EDT us Sesar Pereyra MD LAB BLOOD ORDERABLES Final Result Performing Organization Address [facility] Co de Phone Number [facility] [address] [place] [phone] from Last 3 Months or Most Recently Relevant to Health Maintenance Insurance [facility] MEDICARE ADVANTAGE Advance Directives Documents on File Type Date Recorded 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
--- OUTSIDE RECORDS SUMMARY | 2025-04-01 16:02 | XMS_ITS | Encounter Summary ---
Author Organization [employer] Address [address] [facility] 7[address] [place] [address] Care Team Providers Care Director Of Dementia Operations Name Role Phone Sesar Pereyra MD Primary Care Provider [phone] Encounter Details Date Type Department Care Team ([facility] st Contact Info) Description 09/18/2024 Orders Only [facility] CHC MED & PEDS [address] [place], [place] [phone] Sesar Pereyra MD [address] [place] [address] Dislocation of left ulnohumeral joint, initial encounter [...] Description 04/03/2025 3:30 PM EST Office Visit [facility] MED & PEDS [address] [place] [address] Sesar Pereyra MD [address] [place] [address] documented as of this encounter Visit Diagnoses Diagnosis Dislocation of left ulnohumeral joint, initial encounter- Primary documented in this encounter Additional Health Concerns Assessment Noted Time PHQ-9 Depression Total Score: 6 07/25/19 25 3:22 PM EDT documented as of this encounter Care Teams Director Of Dementia Operations Relationship Specialty Start Date End Date Sesar Pereyra MD [address] [place] [address] PCP - General Internal Medicine [facility]24 11/13/24 [facility] 11/14/24 documented as of this encounter
--- OUTSIDE RECORDS SUMMARY | 2025-04-01 16:02 | XMS_ITS | Encounter Summary ---
Author Organization [employer] Address [address] [facility] 7t [place] [address] Care Team Providers Care Leasing Machine Tender Name Role Phone Sesar Pereyra MD Primary Care Provider [phone] Encounter Details Date Type Department Care Team ([facility] st Contact Info) Description 05/30/2024 Telephone [facility] MEDICINE [address] [place] [address] Sesar Pereyra MD [address] [place], [place] [phone] Social History Tobacco Use Types Packs/Day Years [...] Description 04/03/2025 3:30 PM EST Office Visit [facility] MED & PEDS [address] [place] [address] Sesar Pereyra MD [address] [place] [address] documented as of this encounter Visit Diagnoses Not on filedocumented in this encounter Additional Health Concerns Assessment Noted Time PHQ-9 Depression Total Score: 16 024 10:59 AM EDT documented as of this encounter Care Teams Leasing Machine Tender Relationship Specialty Start Date End Date Sesar Pereyra MD [address] [place] [address] PCP - General Internal Medicine 03/01/21 [facility] 03/22/24 [facility]13[facility] documented as of this encounter
--- OUTSIDE RECORDS SUMMARY | 2025-04-01 16:02 | XMS_ITS | Encounter Summary ---
Author Organization [employer] Address [address] [facility] 7[address] [place] [address] Care Team Providers Care Auto Roller Name Role Phone Sesar Pereyra MD Primary Care Provider [phone]- [phone] Reason for Visit * Reason Onset Date Comments Med Refill 12/11/2024 Encounter Details Date Type Department Care Team ([facility] st Contact Info) Description 12/11/2024 Refill [facility] MED & PEDS [address] [place] [address] Sesar Pereyra MD [address] [place] [address] Perinephric hematoma; Chronic pain syndrome; Dislocation of [...] Description 04/03/2025 3:30 PM EST Office Visit [facility] MED & PEDS [address] [place] [address] Sesar Pereyra MD [address] [place] [address] documented as of this encounter Visit Diagnoses Diagnosis Perinephric hematoma Other specified disorder of kidney and ureter Chronic pain syndrome Dislocation of left ulnohumeral joint, initial encounter documented in this encounter Additional Health Concerns Assessment Noted Time PHQ-9 Depression Total Score: 6 07/25/19 25 3:22 PM EDT documented as of this encounter Care Teams Auto Roller Relationship Specialty Start Date End Date Sesar Pereyra MD [address] [place] [address] PCP - General Internal Medicine 03/01/21 [facility] 11/14/24 documented as of this encounter
--- OUTSIDE RECORDS SUMMARY | 2025-04-01 16:02 | XMS_ITS | Encounter Summary ---
Author Organization [email or web address] Address [address] [facility] 7[address] [place] [address] Care Team Providers Care Manager Marketing Communications Name Role Phone Sesar Pereyra MD Primary Care Provider [phone] Reason for Visit * Reason Comments Med Refill Encounter Details Date Type Department Care Team ([facility] Contact Info) Description 10/19/2022 Refill [facility] MED & PEDS [address] [place] [address] Sesar Pereyra MD [address] [place] [address] Social History Tobacco Use Types Packs/Day Years [...] Department Care Team (Late Contact Info) Description 04/03/2025 3:30 PM EST Office Visit [facility] MED & PEDS [address] [place] [address] Sesar Pereyra MD [address] [place] [address] documented as of this encounter Visit Diagnoses Not on filedocumented in this encounter Care Teams Manager Marketing Communications Relationship Specialty Start Date End Date Sesar Pereyra MD [address] [place] [address] PCP - General Internal Medicine 03/01/21 [facility] 03/22/24 [facility]13[facility] documented as of this encounter
--- OUTSIDE RECORDS SUMMARY | 2025-04-01 16:02 | XMS_ITS | Encounter Summary ---
Author Organization [employer] Address 75 [facility] 7t [place] [address] Care Team Providers Care High School Business Teacher Name Role Phone Sesar Pereyra MD Primary Care Provider +1- [phone] Reason for Visit * Reason Onset Date Comments Med Refill 04/18/2024 Encounter Details Date Type Department Care Team ([facility] st Contact Info) Description 04/18/2024 Telephone [facility] MEDICINE [address] [place] [address] Sesar Pereyra MD [address] [place], [place] [phone] Med Refill Social History Tobacco Use Types [...] needing refill : To be sent to: [facility] - [place], [place] - [address] [place] [address] STEET documented in this encounter Plan of Treatment Upcoming Encounters Date Type Department Care Team (Late st Contact Info) Description 04/03/2025 3:30 PM EST Office Visit [facility] MED & PEDS [address] [place] [address] Sesar Pereyra MD 505 [place] [address] documented as of this encounter Visit Diagnoses Not on filedocumented in this encounter Additional Health Concerns Assessment Noted Time PHQ-9 Depression Total Score: 16 024 10:59 AM EDT documented as of this encounter Care Teams High School Business Teacher Relationship Specialty Start Date End Date Sesar Pereyra MD 505 [place] [address] PCP - General Internal Medicine 11/1/21 [facility] 03/22/24 11/13/24 [facility] 11/14/24 documented as of this encounter
--- OUTSIDE RECORDS SUMMARY | 2025-04-01 16:02 | XMS_ITS | Encounter Summary ---
Author Organization [employer] Address 75 [facility] 7t [place] [address] Care Team Providers Care Boatwright Name Role Phone Sesar Pereyra MD Primary Care Provider +1- [phone] Reason for Visit * Reason Onset Date Comments Med Refill 04/28/2024 Encounter Details Date Type Department Care Team ([facility] st Contact Info) Description 04/28/2024 Refill [facility] MED & PEDS [address] [place] [address] Sesar Pereyra MD [address] [place] [address] Social History Tobacco Use Types Packs/Day Years [...] Description 04/03/2025 3:30 PM EST Office Visit [facility] MED & PEDS [address] [place] [address] Sesar Pereyra MD [address] [place] [address] documented as of this encounter Visit Diagnoses Not on filedocumented in this encounter Additional Health Concerns Assessment Noted Time PHQ-9 Depression Total Score: 16 024 10:59 AM EDT documented as of this encounter Care Teams Boatwright Relationship Specialty Start Date End Date Sesar Pereyra MD 505 [place] [address] PCP - General Internal Medicine 03/01/21 [facility] 03/22/24 11/13/24 [facility] 11/14/24 documented as of this encounter
--- OUTSIDE RECORDS SUMMARY | 2025-04-01 16:02 | XMS_ITS | Encounter Summary ---
Author Organization [employer] Address 75 [facility] 7t [place] [address] Care Team Providers Care Deep Well Contractor Name Role Phone Sesar Pereyra MD Primary Care Provider +1 [phone] Reason for Visit * Reason Comments Med Refill Encounter Details Date Type Department Care Team ([facility] st Contact Info) Description 10/30/2023 Refill [facility] & PEDS [address] [place], [place] [phone] Sesar Pereyra MD 505 [place] [address] PVD (peripheral vascular disease) (CMS/HCC); Longstanding persistent [...] Upcoming Encounters Date Type Department Care Team ([facility] st Contact Info) Description 04/03/2025 3:30 PM EST Office Visit [facility] MED & PEDS [address] [place] [address] Sesra Pereyra MD [address] [place] [address] documented as of this encounter Visit Diagnoses Diagnosis PVD (peripheral vascular disease) Unspecified peripheral vascular disease Longstanding persistent atrial fibrillation (CMS/HCC) (HCC) documented in this encounter Additional Health Concerns Assessment Noted Time PHQ-9 Depression Total Score: 16 024 10:59 AM EDT documented as of this encounter Care Teams Deep Well Contractor Relationship Specialty Start Date End Date Sesar Pereyra MD [address] [place] [address] PCP - General Internal Medicine 03/01/21 [facility] 03/22/24 11/13/24 [facility] 11/14/24 documented as of this encounter
--- OUTSIDE RECORDS SUMMARY | 2025-04-01 16:02 | XMS_ITS | Encounter Summary ---
Author Organization [employer] Address 75 [facility] 7t [place] [address] Care Team Providers Care Sociology Instructor Name Role Phone Sesar Pereyra MD Primary Care Provider +1 [phone] Reason for Visit * Reason Onset Date Comments Nurse Triage 09/04/2024 Encounter Details Date Type Department Care Team ([facility] st Contact Info) Description 09/04/2024 Telephone [facility] MEDICINE [address] [place] [address] Sesar Pereyra MD [address] [place] [address] Nurse Triage Social History Tobacco Use Types [...] past 3 days. Pt was seen in [facility] 08/29/24 with dx [...] You become worse * Telephone Encounter - Carljia Diazarez - 09/04/2024 4:29 PM EDT Symptom: Diarrhea Outcome: Schedule an appointment to be seen within 24 hours Reason: Caller denied all higher acuity questions The caller accepted this outcome. *pt was in [facility] due to pneumonia documented in this encounter Plan of Treatment Upcoming Encounters Date Type Department Care Team (Late st Contact Info) Description 04/03/2025 3:30 PM EST Office Visit [facility] MED & PEDS [address] [place] [address] Sesar Pereyra MD [address] [place] [address] documented as of this encounter Visit Diagnoses Not on filedocumented in this encounter Additional Health Concerns Assessment Noted Time PHQ-9 Depression Total Score: 6 07/25/19 25 3:22 PM EDT documented as of this encounter Care Teams Sociology Instructor Relationship Specialty Start Date End Date Sesar Pereyra MD [address] [place] [address] PCP - General Internal Medicine 03/01/21 [facility] 03/22/24 11/13/24 [facility] 11/14/24 documented as of this encounter
--- OUTSIDE RECORDS SUMMARY | 2025-04-01 16:02 | XMS_ITS | Encounter Summary ---
Author Organization [employer] Address 75 [facility] 7t [place] [address] Care Team Providers Care Continuous Conveyor Screen Drier Name Role Phone Sesar Pereyra MD Primary Care Provider +1 [phone] Encounter Details Date Type Department Care Team (Late st Contact Info) Description 06/24/2024 Orders Only [facility] MEDICINE [address] [place] [address] Sesar Pereyra MD [address] [place] [address] Paroxysmal atrial fibrillation (CMS/HCC) (Primary Dx) Social [...] [facility] st Contact Info) Description 04/03/2025 3:30 PM EST Office Visit [facility] MED & PEDS 505 [place] [address] Sesar Pereyra MD [address] [place] [address] documented as of this encounter Visit Diagnoses Diagnosis Paroxysmal atrial fibrillation (CMS/HCC) (HCC)- Primary Atrial fibrillation documented in this encounter Additional Health Concerns Assessment Noted Time PHQ-9 Depression Total Score: 16 024 10:59 AM EDT documented as of this encounter Care Teams Continuous Conveyor Screen Drier Relationship Specialty Start Date End Date Sesar Pereyra MD [address] [place] [address] PCP - General Internal Medicine 03/01/21 [facility] 03/22/24 11/13/24 [facility] 11/14/24 documented as of this encounter
--- OUTSIDE RECORDS SUMMARY | 2025-04-01 16:02 | XMS_ITS | Encounter Summary ---
Author Organization [employer] Address 75 [facility] 7t [place] [address] Care Team Providers Care Machine Plate Stacker Name Role Phone Sesar Pereyar MD Primary Care Provider +1 [phone] Reason for Visit * Reason Onset Date Comments fyi 09/11/2024 Encounter Details Date Type Department Care Team ([facility] st Contact Info) Description 09/11/2024 Telephone [facility] MEDICINE [address] [place] [address] Sesar Pereyra MD [address] [place] [address] fyi Social History Tobacco Use Types Packs/Day [...] 2:46 PM EDT Tc to pt regarding [facility] stay for pneumonia from 08/26 to 08/29 for his status after being discharged and to offer an ED follow-up appointment. Unable to reach pt, left message to call back. * Telephone Encounter - Desi Gutierrez - 09/11/2024 2:26 PM EDT Tc from pt to report was admitted at the [facility] 3 days ago. Diagnosis: pneumonia. documented in this encounter Plan of Treatment Upcoming Encounters Date Type Department Care Team (Late st Contact Info) Description 04/03/2025 3:30 PM EST Office Visit [facility] MED & PEDS 505 [place], [place] [phone] Sesar Pereyra MD 505 [place] [address] documented as of this encounter Visit Diagnoses Not on filedocumented in this encounter Additional Health Concerns Assessment Noted Time PHQ-9 Depression Total Score: 6 07/25/19 25 3:22 PM EDT documented as of this encounter Care Teams Machine Plate Stacker Relationship Specialty Start Date End Date Sesar Pereyra MD [address] [place] [address] PCP - General Internal Medicine 03/01/21 [facility] 03/22/24 11/13/24 [facility] 11/14/24 documented as of this encounter
--- OUTSIDE RECORDS SUMMARY | 2025-04-01 16:02 | XMS_ITS | Encounter Summary ---
Author Organization [employer] Address 75 [facility] 7t [place] [address] Care Team Providers Care College Dean Name Role Phone Sesar Pereyra MD Primary Care Provider +1- [phone] Reason for Visit * Reason Comments Med Refill Encounter Details Date Type Department Care Team ([facility] st Contact Info) Description 08/29/2023 Refill [facility] MEDICINE [address] [place] [address] Sesar Pereyra MD 505 [place] [address] Social History Tobacco Use Types Packs/Day Years [...] ([facility] st Contact Info) Description 04/03/2025 3:30 PM EST Office Visit [facility] MED & PEDS 505 [place] [address] Sesar Pereyra MD 505 [place] [address] documented as of this encounter Visit Diagnoses Not on filedocumented in this encounter Additional Health Concerns Assessment Noted Time PHQ-9 Depression Total Score: 16 024 10:59 AM EDT documented as of this encounter Care Teams College Dean Relationship Specialty Start Date End Date Sesar Pereyra MD 505 [place] [address] PCP - General Internal Medicine 03/01/21 [facility] 03/22/24 11/13/24 [facility] 11/14/24 documented as of this encounter
--- OUTSIDE RECORDS SUMMARY | 2025-04-01 16:02 | XMS_ITS | Encounter Summary ---
Author Organization [employer] Address 75 [facility] 7t [place] [address] Care Team Providers Care Web Production Manager Name Role Phone Sesar Pereyra MD Primary Care Provider +1- [phone] Reason for Visit * Reason Onset Date Comments Med Refill 04/11/2024 Encounter Details Date Type Department Care Team (Late st Contact Info) Description 04/11/2024 Refill [facility] MEDICINE [address] [place] [address] Natasha Jiang MD [address] [place] [address] Closed nondisplaced fracture of acromial end of [...] ([facility] st Contact Info) Description 04/03/2025 3:30 PM EST Office Visit [facility] & PEDS 505 [place] [address] Sesar Pereyra MD [address] [place] [address] documented as of this encounter Visit Diagnoses Diagnosis Closed nondisplaced fracture of acromial end of right clavicle, initial encounter documented in this encounter Additional Health Concerns Assessment Noted Time PHQ-9 Depression Total Score: 16 024 10:59 AM EDT documented as of this encounter Care Teams Web Production Manager Relationship Specialty Start Date End Date Sesar Pereyra MD [address] [place] [address] PCP - General Internal Medicine 03/01/21 [facility] 03/22/24 11/13/24 [facility] 11/14/24 documented as of this encounter
--- OUTSIDE RECORDS SUMMARY | 2025-04-01 16:02 | XMS_ITS | Encounter Summary ---
Author Organization [employer] Address 75 [facility] 7t [place] [address] Care Team Providers Care Data Mining Analyst Name Role Phone Sesar Pereyra MD Primary Care Provider +1- [phone] Reason for Visit * Reason Onset Date Comments Medication Question 06/21/2024 Encounter Details Date Type Department Care Team ([facility] st Contact Info) Description 06/21/[address] [facility] MEDICINE [address] [place] [address] Sesar Pereyra MD [address] [place] [address] Medication Question Social History Tobacco Use Types [...] to Discontinue the medication. Contact Conrad at [phone] Ext [phone] The Voicemail is private so you are able to Leave a message in there. documented in this encounter Plan of Treatment Upcoming Encounters Date Type Department Care Team (Late st Contact Info) Description 04/03/2025 3:30 PM EST Office Visit [facility] MED & PEDS [address] [place] [address] Sesar Pereyra MD [address] [place] [address] documented as of this encounter Visit Diagnoses Not on filedocumented in this encounter Additional Health Concerns Assessment Noted Time PHQ-9 Depression Total Score: 16 024 10:59 AM EDT documented as of this encounter Care Teams Data Mining Analyst Relationship Specialty Start Date End Date Sesar Pereyra MD [address] [place] [address] PCP - General Internal Medicine 03/01/21 [facility] 03/22/24 11/13/24 [facility] 11/14/24 documented as of this encounter
--- OUTSIDE RECORDS SUMMARY | 2025-04-01 16:02 | XMS_ITS | Encounter Summary ---
Author Organization [employer] Address 75 [facility] 7t [place] [address] Care Team Providers Care Filler Shredding Machine Loader Name Role Phone Sesar Pereyra MD Primary Care Provider +1 [phone] Encounter Details Date Type Department Care Team (Late st Contact Info) Description 04/02/2024 Orders Only [facility] [address] [place] [address] Provider, MD Jazmyn Social History Tobacco Use [...] 3:30 PM EST Office Visit [facility] MED & PEDS 505 [place] [address] Sesar Pereyra MD 505 [place] [address] documented as of this encounter Procedures Procedure [...] as of this encounter Care Teams Filler Shredding Machine Loader Relationship Specialty Start Date End Date Sesar Pereyra MD 505 [place] [address] PCP - General Internal Medicine 03/01/21 [facility] 03/22/24 11/13/24 [facility] 11/14/24 documented as of this encounter
--- OUTSIDE RECORDS SUMMARY | 2025-04-01 16:02 | XMS_ITS | Encounter Summary ---
Author Organization [employer] Address 75 [facility] 7 [place] [address] Care Team Providers Care Fruit Vendor Name Role Phone Sesar Pereyra MD Primary Care Provider +1 [phone] Encounter Details Date Type Department Care Team ([facility] Contact Info) Description 10/13/2022 Orders Only [facility] MED & PEDS [address] [place], [place] [phone] Sesar Pereyra MD [address] [place] [address] Social History Tobacco Use Types Packs/Day Years [...] 3:30 PM EST Office Visit [facility] MED & PEDS [address] [place], [place] [phone] Sesar Pereyra MD [address] [place] [address] documented as of this encounter Visit Diagnoses Not on filedocumented in this encounter Care Teams Fruit Vendor Relationship Specialty Start Date End Date Sesar Pereyra MD [address] [place] [address] PCP - General Internal Medicine 03/01/21 [facility] 03/22/24 11/13/24 [facility]/14[facility]24 documented as of this encounter
--- OUTSIDE RECORDS SUMMARY | 2025-04-01 16:02 | XMS_ITS | Encounter Summary ---
Author Organization [employer] Address 75 [facility] 7t [place] [address] Care Team Providers Care Final Assembler Boat Name Role Phone Sesar Pereyra MD Primary Care Provider +1- [phone] Reason for Visit * Reason Onset Date Comments Med Refill 12/10/2024 Encounter Details Date Type Department Care Team ([facility] st Contact Info) Description 12/10/2024 Refill [facility] MED & PEDS [address] [place] [address] Sesar Pereyra MD 505 [place] [address] Anemia, unspecified type Social History Tobacco Use [...] Upcoming Encounters Date Type Department Care Team ([facility] st Contact Info) Description 04/03/2025 3:30 PM EST Office Visit [facility] MED & PEDS [address] [place] [address] Sesar Pereyra MD [address] [place] [address] documented as of this encounter Visit Diagnoses Diagnosis Anemia, unspecified type documented in this encounter Additional Health Concerns Assessment Noted Time PHQ-9 Depression Total Score: 6 07/25/19 25 3:22 PM EDT documented as of this encounter Care Teams Final Assembler Boat Relationship Specialty Start Date End Date Sesar Pereyra MD 505 [place] [address] PCP - General Internal Medicine 03/01/21 [facility] 11/14/24 documented as of this encounter
--- OUTSIDE RECORDS SUMMARY | 2025-04-01 16:02 | XMS_ITS | Encounter Summary ---
Author Organization [employer] Address 75 [facility] 7t [place] [address] Care Team Providers Care Trouble Shooter Name Role Phone Sesar Pereyra MD Primary Care Provider +1 [phone] Reason for Visit * Reason Comments Med Refill Encounter Details Date Type Department Care Team ([facility] Contact Info) Description 10/26/2022 Refill [facility] MED & PEDS [address] [place] [address] Sesar Pereyra MD [address] [place] [address] Social History Tobacco Use Types Packs/Day Years [...] Description 04/03/2025 3:30 PM EST Office Visit [facility] MED & PEDS [address] [place] [address] Sesar Pereyra MD [address] [place] [address] documented as of this encounter Visit Diagnoses Not on filedocumented in this encounter Care Teams Trouble Shooter Relationship Specialty Start Date End Date Sesar Pereyra MD 505 [place] [address] PCP - General Internal Medicine 03/01/21 [facility] 03/22/24 11/13/24 [facility] documented as of this encounter
--- OUTSIDE RECORDS SUMMARY | 2025-04-01 16:02 | XMS_ITS | Encounter Summary ---
Author Organization [employer] Address 75 [facility] 7t [place] [address] Care Team Providers Care Adjunct Professor Of U.[place]. History Name Role Phone Sesar Pereyra MD Primary Care Provider +1 [phone] Reason for Visit * Reason Onset Date Comments Hospital Follow-up 09/17/2024 Encounter Details Date Type Department Care Team ([facility] st Contact Info) Description 09/17/2024 Telephone [facility] MEDICINE [address] [place] [address] Sesar Pereyra MD [address] [place] [address] Hospital Follow-up Social History Tobacco Use Types [...] from pt requesting a HDF appt. Hospital: [facility] Date of admission: 09/10/2024 Discharge date: 09/14/2024 Diagnosed: Pneumonia *Send message to [facility] Coordinators documented in this encounter Plan of Treatment Upcoming Encounters Date Type Department Care Team (Late st Contact Info) Description 04/03/2025 3:30 PM EST Office Visit [facility] MED [facility] PEDS [address] [place] [address] Sesar Pereyra MD [address] [place] [address] documented as of this encounter Visit Diagnoses Not on filedocumented in this encounter Additional Health Concerns Assessment Noted Time PHQ-9 Depression Total Score: 6 07/25/19 3:22 PM EDT documented as of this encounter Care Teams Adjunct Professor Of U.S. History Relationship Specialty Start Date End Date Sesar Pereyra MD [address] [place] [address] PCP - General Internal Medicine 03/01/21 [facility] 03/22/24 11/13/24 [facility] 11/14/24 documented as of this encounter
--- OUTSIDE RECORDS SUMMARY | 2025-04-01 16:02 | XMS_ITS | Encounter Summary ---
Author Organization [employer] Address [address] [facility] 7t [place] [address] Care Team Providers Care Director Nicu Name Role Phone Sesar Pereyra MD Primary Care Provider +1 [phone] Reason for Visit * Reason Onset Date Comments Med Refill 08/08/2024 Encounter Details Date Type Department Care Team ([facility] st Contact Info) Description 08/08/2024 Telephone [facility] MEDICINE [address] [place] [address] Sesar Pereyra MD [address] [place], [place] [phone] Med Refill Social History Tobacco Use Types [...] 0.5 MG tablet To be sent to: [facility] [address] [place] documented in this encounter Plan of Treatment Upcoming Encounters Date Type Department Care Team (Late st Contact Info) Description 04/03/2025 3:30 PM EST Office Visit [facility] MED & PEDS [address] [place] [address] Sesar Pereyra MD [address] [place] [address] documented as of this encounter Visit Diagnoses Not on filedocumented in this encounter Additional Health Concerns Assessment Noted Time PHQ-9 Depression Total Score: 6 07/25/19 25 3:22 PM EDT documented as of this encounter Care Teams Director Nicu Relationship Specialty Start Date End Date Sesar Pereyra MD [address] [place] [address] PCP - General Internal Medicine 03/01/21 [facility] 03/22/24 11/13/24 [facility] 11/14/24 documented as of this encounter
--- OUTSIDE RECORDS SUMMARY | 2025-04-01 16:02 | XMS_ITS | Encounter Summary ---
Author Organization [employer] Address 75 [facility] 7t [place] [address] Care Team Providers Care Administrative Job Titles Name Role Phone Sesar Pereyra MD Primary Care Provider +1 [phone] Reason for Visit * Reason Onset Date Comments Lab Orders 05/30/2024 Referral 05/30/2024 Encounter Details Date Type Department Care Team (Late st Contact Info) Description 05/30/2024 Telephone [facility] MEDICINE [address] [place] [address] Sesar Pereyra MD [address] [place] [address] Lab Orders; Referral Social History Tobacco Use [...] Description 04/03/2025 3:30 PM EST Office Visit [facility] MED & PEDS [address] [place] [address] Sesar Pereyra MD [address] [place] [address] documented as of this encounter Visit Diagnoses Not on filedocumented in this encounter Additional Health Concerns Assessment Noted Time PHQ-9 Depression Total Score: 16 024 10:59 AM EDT documented as of this encounter Care Teams Administrative Job Titles Relationship Specialty Start Date End Date Sesar Pereyra MD [address] [place] [address] PCP - General Internal Medicine 03/01/21 [facility] 03/22/24 11/13/24 [facility] 11/14/24 documented as of this encounter
--- OUTSIDE RECORDS SUMMARY | 2025-04-01 16:02 | XMS_ITS | Encounter Summary ---
Author Organization [employer] Address 75 [facility] 7t [place] [address] Care Team Providers Care Hand Bander Name Role Phone Sesar Pereyra MD Primary Care Provider +1 [phone] Reason for Visit * Reason Onset Date Comments fyi 05/28/2024 Encounter Details Date Type Department Care Team ([facility] st Contact Info) Description 05/28/2024 Telephone [facility] MEDICINE [address] [place] [address] Sesar Pereyra MD [address] [place] [address] fy Social History Tobacco Use Types Packs/Day [...] EST Tc from [facility] with [facility] Care informing pt verbalized to her that he been taking THD Gummies 2x a day morning and afternoon. Gummies are 10mg per gummy as he's aware of what he's taking. documented in this encounter Plan of Treatment Upcoming Encounters Date Type Department Care Team ([facility] st Contact Info) Description 04/03/2025 3:30 PM EST Office Visit [facility] MED & PEDS [address] [place] [address] eSsar Pereyra MD [address] [place] [address] documented as of this encounter Visit Diagnoses Not on filedocumented in this encounter Additional Health Concerns Assessment Noted Time PHQ-9 Depression Total Score: 16 024 10:59 AM EDT documented as of this encounter Care Teams Hand Bander Relationship Specialty Start Date End Date Sesar Pereyra MD [address] [place] [address] PCP - General Internal Medicine [facility] 11/13/24 [facility] 11/14/24 documented as of this encounter
--- OUTSIDE RECORDS SUMMARY | 2025-04-01 16:02 | XMS_ITS | Encounter Summary ---
Author Organization [employer] Address 75 [facility] 7t [place] [address] Care Team Providers Care Blower Feeder Dyed Raw Stock Name Role Phone Ssear Pereyra MD Primary Care Provider +1- [phone] Reason for Visit * Reason Onset Date Comments Med Refill 04/26/2024 Encounter Details Date Type Department Care Team ([facility] st Contact Info) Description 04/26/2024 Telephone [facility] MEDICINE [address] [place] [address] Sesar Pereyra MD [address] [place], [place] [phone] Med Refill Social History Tobacco Use Types [...] 7.5 MG tablet To be sent to: [facility] - [place], [place] - [address] documented in this encounter Plan of Treatment Upcoming Encounters Date Type Department Care Team (Late st Contact Info) Description 04/03/2025 3:30 PM EST Office Visit [facility] MED & PEDS [address] [place] [address] Sesar Pereyra MD [address] [place] [address] documented as of this encounter Visit Diagnoses Not on filedocumented in this encounter Additional Health Concerns Assessment Noted Time PHQ-9 Depression Total Score: 16 024 10:59 AM EDT documented as of this encounter Care Teams Blower Feeder Dyed Raw Stock Relationship Specialty Start Date End Date Sesar Pereyra MD [address] [place] [address] PCP - General Internal Medicine 03/01/21 [facility] 03/22/24 11/13/24 [facility] 11/14/24 documented as of this encounter
--- OUTSIDE RECORDS SUMMARY | 2025-04-01 16:02 | XMS_ITS | Encounter Summary ---
Author Organization [employer] Address 75 [facility] 7 [place] [address] Care Team Providers Care Fibre Cement Moulder Name Role Phone Sesar Pereyra MD Primary Care Provider +1 [phone] Reason for Visit * Reason Comments Med Refill Encounter Details Date Type Department Care Team ([facility] Contact Info) Description 06/10/2022 Refill [facility] MED & PEDS [address] [place], [place] [phone] Sesar Pereyra MD [address] [place] [address] Primary insomnia Social History Tobacco Use Types [...] Upcoming Encounters Date Type Department Care Team ([facility] Contact Info) Description 04/03/2025 3:30 PM EST Office Visit [facility] MED & PEDS [address] [place], [place] [phone] Sesar Pereyra MD [address] [place] [address] documented as of this encounter Visit Diagnoses Diagnosis Primary insomnia Persistent disorder of initiating or maintaining sleep documented in this encounter Care Teams Fibre Cement Moulder Relationship Specialty Start Date End Date Sesar Pereyra MD [address] [place] [address] PCP - General Internal Medicine 03/01/21 [facility] 03/22/24 11/13/24 [facility] Care 11/14/24 documented as of this encounter
--- OUTSIDE RECORDS SUMMARY | 2025-04-01 16:02 | XMS_ITS | Encounter Summary ---
Author Organization [employer] Address 75 [facility] 7t [place] [address] Care Team Providers Care Industrial Automation Engineer Name Role Phone Sesar Pereyra MD Primary Care Provider +1 [phone] Reason for Visit * Reason Onset Date Comments Med Refill 09/24/2024 Encounter Details Date Type Department Care Team ([facility] st Contact Info) Description 09/24/2024 Refill [facility] & PEDS [address] [place] [address] Sesar Pereyra MD [address] [place] [address] Dislocation of left ulnohumeral joint, initial encounter [...] 04/03/2025 3:30 PM EST Office Visit [facility] MED & PEDS [address] [place] [address] Sesar Pereyra MD [address] [place] [address] documented as of this encounter Visit Diagnoses Diagnosis Dislocation of left ulnohumeral joint, initial encounter documented in this encounter Additional Health Concerns Assessment Noted Time PHQ-9 Depression Total Score: 6 07/25/19 25 3:22 PM EDT documented as of this encounter Care Teams Industrial Automation Engineer Relationship Specialty Start Date End Date Sesar Pereyra MD [address] [place] [address] PCP - General Internal Medicine 03/01/21 [facility] 03/22/24 11/13/24 [facility]24 documented as of this encounter
--- OUTSIDE RECORDS SUMMARY | 2025-04-01 16:02 | XMS_ITS | Encounter Summary ---
Author Organization [employer] Address 75 [facility] 7t [place] [address] Care Team Providers Care Ornament Stapler Name Role Phone Sesar Pereyra MD Primary Care Provider +1- [phone] Reason for Visit * Reason Onset Date Comments Med Refill 04/02/2024 Encounter Details Date Type Department Care Team ([facility] st Contact Info) Description 04/02/2024 Telephone [facility] MEDICINE [address] [place] [address] Sesar Pereyra MD [address] [place], [place] [phone] Med Refill Social History Tobacco Use Types [...] 9:39 AM EST Medication was sent to [facility] on 04/01/24 #30 with 11 refills. * Telephone Encounter - Miri Young - 04/02/2024 9:33 AM EST TC from pt requesting medication refill. Medications needing refill : metoprolol tartrate (Lopressor) 25 MG tablet To be sent to: [facility] documented in this encounter Plan of Treatment Upcoming Encounters Date Type Department Care Team (Late st Contact Info) Description 04/03/2025 3:30 PM EST Office Visit [facility] MED & PEDS [address] [place] [address] Sesar Pereyra MD [address] [place] [address] documented as of this encounter Visit Diagnoses Not on filedocumented in this encounter Additional Health Concerns Assessment Noted Time PHQ-9 Depression Total Score: 16 024 10:59 AM EDT documented as of this encounter Care Teams Ornament Stapler Relationship Specialty Start Date End Date Sesar Pereyra MD [address] [place] [address] PCP - General Internal Medicine 03/01/21 [facility] 03/22/24 11/13/24 [facility]24 documented as of this encounter
--- OUTSIDE RECORDS SUMMARY | 2025-04-01 16:03 | XMS_ITS | Encounter Summary ---
Author Organization [employer] Address [address] [facility] 7t [place] [address] Care Team Providers Care Scientific Software Engineer Name Role Phone Sesar Pereyra MD Primary Care Provider [phone] [phone] Reason for Visit * Reason Onset Date Comments Med Refill 2025 Encounter Details Date Type Department Care Team ([facility] st Contact Info) Description 2025 Telephone [facility] MED & PEDS [address] [place] [address] Sesar Pereyra MD [address] [place] [address] Med Refill Social History Tobacco Use Types [...] immediate release tablet To be sent to: [facility] [address] documented in this encounter Plan of Treatment Upcoming Encounters Date Type Department Care Team (Late st Contact Info) Description 04/03/2025 3:30 PM EST Office Visit [facility] MED & PEDS [address] [place] [address] Sesar Pereyra MD [address] [place] [address] documented as of this encounter Visit Diagnoses Not on filedocumented in this encounter Additional Health Concerns Assessment Noted Time PHQ-9 Depression Total Score: 6 07/25/19 25 3:22 PM EDT documented as of this encounter Care Teams Scientific Software Engineer Relationship Specialty Start Date End Date Sesar Pereyra MD [address] [place] [address] PCP - General Internal Medicine 03/01/21 [facility] 11/14/24 documented as of this encounter
--- OUTSIDE RECORDS SUMMARY | 2025-04-01 16:03 | XMS_ITS | Encounter Summary ---
Author Organization [employer] Address 75 [facility] 7t [place] [address] Care Team Providers Care Electrical Machinist Name Role Phone Sesar Pereyra MD Primary Care Provider [phone] Reason for Visit * Reason Onset Date Comments Med Refill 01/02/2025 Encounter Details Date Type Department Care Team ([facility] st Contact Info) Description 01/02/2025 Telephone [facility] MEDICINE [address] [place] [address] Sesar Pereyra MD [address] [place], [place] [phone] Med Refill Social History Tobacco Use Types [...] in regards to Oxycodone stating he contacted [facility] and was informed they have not received script. Pt would like a call back to verify what's going on. Please contact pt at [phone]. documented in this encounter Plan of Treatment Upcoming Encounters Date Type Department Care Team (Late st Contact Info) Description 04/03/2025 3:30 PM EST Office Visit [facility] MED & PEDS [address] [place] [address] Sesar Pereyra MD [address] [place] [address] documented as of this encounter Visit Diagnoses Not on filedocumented in this encounter Additional Health Concerns Assessment Noted Time PHQ-9 Depression Total Score: 6 07/25/19 25 3:22 PM EDT documented as of this encounter Care Teams Electrical Machinist Relationship Specialty Start Date End Date Sesar Pereyra MD [address] [place] [address] PCP - General Internal Medicine 03/01/21 [facility] 11/14/24 documented as of this encounter
--- OUTSIDE RECORDS SUMMARY | 2025-04-01 16:03 | XMS_ITS | Encounter Summary ---
Author Organization [employer] Address 75 [facility] 7t [place] [address] Care Team Providers Care Paper Stacker Name Role Phone Sesar Pereyra MD Primary Care Provider +[phone] Reason for Visit * Reason Onset Date Comments Med Refill 11/12/2024 Encounter Details Date Type Department Care Team ([facility] st Contact Info) Description 11/12/2024 Refill [facility] MED & PEDS [address] [place] [address] Sesar Pereyra MD [address] [place] [address] Social History Tobacco Use Types Packs/Day Years [...] [facility] [address] [place] [address] Sesar Pereyra MD [address] [place] [address] documented as of this encounter Visit Diagnoses Not on filedocumented in this encounter Additional Health Concerns Assessment Noted Time PHQ-9 Depression Total Score: 6 07/25/19 25 3:22 PM EDT documented as of this encounter Care Teams Paper Stacker Relationship Specialty Start Date End Date Sesar Pereyra MD [address] [place] [address] PCP - General Internal Medicine 03/01/21 [facility] 03/22/24 11/13/24 [facility] 11/14/24 documented as of this encounter
--- OUTSIDE RECORDS SUMMARY | 2025-04-01 16:03 | XMS_ITS | Encounter Summary ---
Author Organization [employer] Address 75 [facility] 7t [place] [address] Care Team Providers Care Rock Climbing Instructor Name Role Phone Sesar Pereyra MD Primary Care Provider +1- [phone] Encounter Details Date Type Department Care Team ([facility] st Contact Info) Description 07/10/2024 Orders Only [facility] MEDICINE [address] [place] [address] Sesar Pereyra MD [address] [place] [address] Memory disturbance (Primary Dx) Social History Tobacco [...] ([facility] st Contact Info) Description 04/03/2025 3:30 PM EST Office Visit [facility] PEDS [address] [place] [address] Sesar Pereyra MD [address] [place] [address] documented as of this encounter Visit Diagnoses Diagnosis Memory disturbance- Primary Memory loss documented in this encounter Additional Health Concerns Assessment Noted Time PHQ-9 Depression Total Score: 16 024 10:59 AM EDT documented as of this encounter Care Teams Rock Climbing Instructor Relationship Specialty Start Date End Date Sesar Pereyra MD [address] [place] [address] PCP - General Internal Medicine 03/01/21 [facility] 03/22/24 11/13/24 [facility] 11/14/24 documented as of this encounter
--- OUTSIDE RECORDS SUMMARY | 2025-04-01 16:03 | XMS_ITS | Encounter Summary ---
Author Organization [employer] Address 75 [facility] 7t [place] [address] Care Team Providers Care Instrument Person Name Role Phone Sesar Pereyra MD Primary Care Provider +1 [phone] Reason for Visit * Reason Onset Date Comments Med Refill 02/03/2025 Encounter Details Date Type Department Care Team ([facility] st Contact Info) Description 02/03/2025 Refill [facility] MED & PEDS [address] [place] [address] Sesar Pereyra MD [address] [place] [address] Perinephric hematoma; Chronic pain syndrome; Dislocation of [...] ([facility] st Contact Info) Description 04/03/2025 3:30 PM EST Office Visit [facility]EDS [address] [place] [address] Sesar Pereyra MD [address] [place] [address] documented as of this encounter Visit Diagnoses Diagnosis Perinephric hematoma Other specified disorder of kidney and ureter Chronic pain syndrome Dislocation of left ulnohumeral joint, initial encounter documented in this encounter Additional Health Concerns Assessment Noted Time PHQ-9 Depression Total Score: 6 07/25/19 3:22 PM EDT documented as of this encounter Care Teams Instrument Person Relationship Specialty Start Date End Date Sesar Pereyra MD [address] [place] [address] PCP - General Internal Medicine 03/01/21 [facility] 11/14/24 documented as of this encounter
--- OUTSIDE RECORDS SUMMARY | 2025-04-01 16:03 | XMS_ITS | Encounter Summary ---
Author Organization [employer] Address 75 [facility] 7t [place] [address] Care Team Providers Care Baseball Umpire For Little League Name Role Phone Sesar Pereyra MD Primary Care Provider +1 [phone] Reason for Visit * Reason Onset Date Comments Hospital Follow-up 10/07/2024 Encounter Details Date Type Department Care Team ([facility] st Contact Info) Description 10/07/2024 Telephone [facility] & PEDS [address] [place], [place] [phone] Sesar Pereyra MD [address], [place] [phone] Hospital Follow-up Social History Tobacco Use Types [...] advocate Teresa requesting a HDF appt. Hospital: [facility] and then transferred to [facility] Date of admission: 09/29/24 Discharge date: 10/06/24 Diagnosed: right kidney hematoma Contact Teresa at [phone] documented in this encounter Plan of Treatment Upcoming Encounters Date Type Department Care Team (Late st Contact Info) Description 04/03/2025 3:30 PM EST Office Visit [facility] MED & PEDS [address] [place] [address] Sesar Pereyra MD [address] [place] [address] documented as of this encounter Visit Diagnoses Not on filedocumented in this encounter Additional Health Concerns Assessment Noted Time PHQ-9 Depression Total Score: 6 07/25/19 3:22 PM EDT documented as of this encounter Care Teams Baseball Umpire For [employer] Relationship Specialty Start Date End Date Sesar Pereyra MD [address] [place] [address] PCP - General Internal Medicine 03[facility]01/[facility]/22[facility] 11/13/24 [facility] 11/14/24 documented as of this encounter
--- OUTSIDE RECORDS SUMMARY | 2025-04-01 16:03 | XMS_ITS | Encounter Summary ---
Author Organization [employer] Address 75 [facility] 7 [place] [address] Care Team Providers Care Transition Specialist Name Role Phone Sesar Pereyra MD Primary Care Provider +1 [phone] Reason for Referral * Consultation (Routine) - Closed Specialty Diagnoses / Procedures Referred By Contac t Referred To Contact Geriatric Medicine Diagnoses Memory disturbance Sesar Pereyra MD [address] [place] [address] Phone: tel: fax: [facility] [address] [place] [address] Phone: tel: fax: Referral ID Status Reason Start Date Expiration Date V isits Requested Visits Authorized [id number] Closed Specialty Services Required 01/11/2024 01/10/2025 1 1 Encounter Details Date Type Department Care Team (Late st Contact Info) Description 01/11/2024 Orders Only [facility] PEDS [address] [place], [place] [phone] Sesar Pereyra MD [address] [place], [place] [phone] Memory disturbance (Primary Dx) Social History Tobacco [...] Description 04/03/2025 3:30 PM EST Office Visit [facility] PEDS [address] [place] [address] Sesar Pereyra MD [address] [place] [address] Scheduled Referrals Name Type Priority Associated Diagnoses Orde r Schedule Referral to Geriatrics Outpatient Referral Routine Memory disturbance Expected: 01/11/2024 (Approximate), Expires: 01/10/2025 documented as of this encounter Visit Diagnoses Diagnosis Memory disturbance- Primary Memory loss documented in this encounter Additional Health Concerns Assessment Noted Time PHQ-9 Depression Total Score: 16 024 10:59 AM EDT documented as of this encounter Care Teams Transition Specialist Relationship Specialty Start Date End Date Sesar Pereyra MD [address] [place] [address] PCP - General Internal Medicine 03/01/21 [facility] 03/22/24 11/13/24 [facility] 11/14/24 documented as of this encounter
--- OUTSIDE RECORDS SUMMARY | 2025-04-01 16:03 | XMS_ITS | Encounter Summary ---
Author Organization [employer] Address 75 [facility] 7t [place] [address] Care Team Providers Care Veteran Appeals Reviewer Name Role Phone Sesar Pereyra MD Primary Care Provider +1 [phone] Reason for Visit * Reason Onset Date Comments Med Refill 11/05/2024 Encounter Details Date Type Department Care Team ([facility] st Contact Info) Description 11/05/2024 Refill [facility] & PEDS [address] [place] [address] Sesar Pereyra MD [address] [place] [address] Perinephric hematoma; Chronic pain syndrome; Dislocation of [...] Description 04/03/2025 3:30 PM EST Office Visit [facility] & PEDS [address] [place] [address] Sesar Pereyra MD [address] [place] [address] documented as of this encounter Visit Diagnoses Diagnosis Perinephric hematoma Other specified disorder of kidney and ureter Chronic pain syndrome Dislocation of left ulnohumeral joint, initial encounter documented in this encounter Additional Health Concerns Assessment Noted Time PHQ-9 Depression Total Score: 6 07/25/19 25 3:22 PM EDT documented as of this encounter Care Teams Veteran Appeals Reviewer Relationship Specialty Start Date End Date Sesar Pereyra MD 505 [facility] [place] [address] PCP - General Internal Medicine 03/01/21 [facility] 03/22/24 11/13/24 [facility] 11/14/24 documented as of this encounter
--- OUTSIDE RECORDS SUMMARY | 2025-04-01 16:03 | XMS_ITS | Encounter Summary ---
Author Organization [employer] Address 75 [facility] 7t [place] [address] Care Team Providers Care Toggle Press Operator Name Role Phone Sesar Pereyra MD Primary Care Provider +1 [phone] Reason for Visit * Reason Comments Med Refill Encounter Details Date Type Department Care Team ([place] [facility] st Contact Info) Description 01/30/2025 Refill [facility] MED & PEDS [address] [place], [place] [phone] Sesar Pereyra MD [address] [place] [address] Social History Tobacco Use Types Packs/Day Years [...] Description 04/03/2025 3:30 PM EST Office Visit [facility] MED & PEDS [address] [place] [address] Sesar Pereyra MD [address] [place] [address] documented as of this encounter Visit Diagnoses Not on filedocumented in this encounter Additional Health Concerns Assessment Noted Time PHQ-9 Depression Total Score: 6 07/25/19 25 3:22 PM EDT documented as of this encounter Care Teams Toggle Press Operator Relationship Specialty Start Date End Date Sesar Pereyra MD [address] [place] [address] PCP - General Internal Medicine 03/01/21 [facility] 11/14/24 documented as of this encounter
--- OUTSIDE RECORDS SUMMARY | 2025-04-01 16:03 | XMS_ITS | Encounter Summary ---
Author Organization [employer] Address 75 [facility] 7t [place] [address] Care Team Providers Care Mcat Instructor Name Role Phone Sesar Pereyra MD Primary Care Provider +1 [phone] Reason for Visit * Reason Onset Date Comments Med Refill 11/06/2024 Encounter Details Date Type Department Care Team ([facility] st Contact Info) Description 11/06/2024 Refill [facility] MED & PEDS [address] [place] [address] Sesar Pereyra MD [address] [place] [address] Social History Tobacco Use Types Packs/Day Years [...] Upcoming Encounters Date Type Department Care Team ([facility] st Contact Info) Description 04/03/2025 3:30 PM EST Office Visit [facility] MED & PEDS [address] [place] [address] Sesar Pereyra MD [address] [place] [address] documented as of this encounter Visit Diagnoses Not on filedocumented in this encounter Additional Health Concerns Assessment Noted Time PHQ-9 Depression Total Score: 6 07/25/19 25 3:22 PM EDT documented as of this encounter Care Teams Mcat Instructor Relationship Specialty Start Date End Date Sesar Pereyra MD [address] [place] [address] PCP - General Internal Medicine 03/01/21 [facility] 03/22/24 11/13/24 [facility] 11/14/24 documented as of this encounter
--- OUTSIDE RECORDS SUMMARY | 2025-04-01 16:03 | XMS_ITS | Encounter Summary ---
Author Organization [employer] Address 75 [facility] 7t [place] [address] Care Team Providers Care Yeast Culture Developer Name Role Phone Sesar Pereyra MD Primary Care Provider +1 [phone] Reason for Visit * Reason Onset Date Comments Med Refill 01/28/2025 Encounter Details Date Type Department Care Team ([facility] st Contact Info) Description 01/28/2025 Refill [facility] MED & PEDS [address] [place] [address] Sesar Pereyra MD [address] [place] [address] Perinephric hematoma; Chronic pain syndrome; Dislocation of [...] Would you like pt to be on SHAREPOINT ENGINEER? Or is this temporary? documented in this encounter Plan of Treatment Upcoming Encounters Date Type Department Care Team (Late st Contact Info) Description 04/03/2025 3:30 PM EST Office Visit [facility] CHC MED & PEDS [address] [place] [address] Sesar Pereyra MD [address] [place] [address] documented as of this encounter Visit Diagnoses Diagnosis Perinephric hematoma Other specified disorder of kidney and ureter Chronic pain syndrome Dislocation of left ulnohumeral joint, initial encounter documented in this encounter Additional Health Concerns Assessment Noted Time PHQ-9 Depression Total Score: 6 07/25/19 25 3:22 PM EDT documented as of this encounter Care Teams Yeast Culture Developer Relationship Specialty Start Date End Date Sesar Preeyra MD 505 [place] [address] PCP - General Internal Medicine 03/01/21 [facility] 11/14/24 documented as of this encounter
--- OUTSIDE RECORDS SUMMARY | 2025-04-01 16:03 | XMS_ITS | Encounter Summary ---
Author Organization [employer] Address 75 [facility] 7t [place] [address] Care Team Providers Care Beef Grinder Name Role Phone Sesar Pereyra MD Primary Care Provider +1- [phone] Reason for Visit * Reason Onset Date Comments Med Refill 10/11/2024 Encounter Details Date Type Department Care Team ([facility] st Contact Info) Description 10/11/2024 Refill [facility] PEDS [address] [place], [place] [phone] Sesar Pereyra MD [address] [place] [address] Social History Tobacco Use Types Packs/Day Years [...] Upcoming Encounters Date Type Department Care Team ([facility] st Contact Info) Description 04/03/2025 3:30 PM EST Office Visit [facility] MED & PEDS [address] [place] [address] Sesar Pereyra MD [address] [place] [address] documented as of this encounter Visit Diagnoses Not on filedocumented in this encounter Additional Health Concerns Assessment Noted Time PHQ-9 Depression Total Score: 6 07/25/19 25 3:22 PM EDT documented as of this encounter Care Teams Beef Grinder Relationship Specialty Start Date End Date Sesar Pereyra MD [address] [place] [address] PCP - General Internal Medicine 03/01/21 [facility] 03/22/24 11/13/24 [facility] 11/14/24 documented as of this encounter
--- OUTSIDE RECORDS SUMMARY | 2025-04-01 16:03 | XMS_ITS | Encounter Summary ---
Author Organization [employer] Address 75 [facility] 7t [place] [address] Care Team Providers Care Pearl Fisherman Name Role Phone Sesar Pereyra MD Primary Care Provider +1- [phone] Reason for Visit * Reason Onset Date Comments call back needed 2025 Encounter Details Date Type Department Care Team ([facility] st Contact Info) Description 2025 Telephone [facility] [address] [place] [address] Sesar Pereyra MD [address] [place] [address] call back needed Social History Tobacco Use [...] pt frequenting a call back from clinical cadd manager to discuss Oxy . Pt feels this is unfair that he has to wait until 02/[address] Pereyra . documented in this encounter Plan of Treatment Upcoming Encounters Date Type Department Care Team (Late st Contact Info) Description 04/03/2025 3:30 PM EST Office Visit [facility] CH[facility] MED & PEDS [address] [place] [address] Sesar Pereyra MD [address] [place] [address] documented as of this encounter Visit Diagnoses Not on filedocumented in this encounter Additional Health Concerns Assessment Noted Time PHQ-9 Depression Total Score: 6 07/25/19 25 3:22 PM EDT documented as of this encounter Care Teams Pearl Fisherman Relationship Specialty Start Date End Date Sesar Pereyra MD [address] [place] [address] PCP - General Internal Medicine 03/01/21 [facility] 11/14/24 documented as of this encounter
--- OUTSIDE RECORDS SUMMARY | 2025-04-01 16:03 | XMS_ITS | Encounter Summary ---
Author Organization [employer] Address 75 [facility] 7t [place] [address] Care Team Providers Care Artificial Log Machine Operator Name Role Phone Sesar Pereyra MD Primary Care Provider +1 [phone] Encounter Details Date Type Department Care Team (Late st Contact Info) Description 10/08/2024 Orders Only [facility] [address] [place] [address] Provider, MD Jazmyn Social History Tobacco Use [...] Description 04/03/2025 3:30 PM EST Office Visit [facility] MED & PEDS [address] [place] [address] Sesar Pereyra MD [address] [place] [address] documented as of this encounter Procedures Procedure [...] documented as of this encounter Care Teams Artificial Log Machine Operator Relationship Specialty Start Date End Date Sesar Pereyra MD [address] [place] [address] PCP - General Internal Medicine 03/01/21 [facility] 03/22/24 11/13/24 [facility] 11/14/24 documented as of this encounter
--- OUTSIDE RECORDS SUMMARY | 2025-04-01 16:03 | XMS_ITS | Encounter Summary ---
Author Organization [employer] Address 75 [facility] 7t [place] [address] Care Team Providers Care Diamond Die Maker Name Role Phone Sesar Pereyra MD Primary Care Provider +1 [phone] Encounter Details Date Type Department Care Team ([facility] st Contact Info) Description 07/10/2024 Telephone [facility] CHC MED & PEDS [address] [place], [place] [phone] Sesar Pereyra MD [address] [place] [address] Social History Tobacco Use Types Packs/Day Years [...] tablet [facility] to [facility] pharmacy[facility] a [facility] to contact pcp office . Preferred pharmacy [facility] - [address] Pt [facility] has been without meds. documented in this encounter Plan of Treatment Upcoming Encounters Date Type Department Care Team ([facility] st Contact Info) Description 04/03/2025 3:30 PM EST Office Visit [facility] CHC MED & PEDS [address] [place] [address] Sesar Pereyra MD [address] [place] [address] documented as of this encounter Visit Diagnoses Not on filedocumented in this encounter Additional Health Concerns Assessment Noted Time PHQ-9 Depression Total Score: 16 024 10:59 AM EDT documented as of this encounter Care Teams Diamond Die Maker Relationship Specialty Start Date End Date Sesar Pereyra MD [address] [place] [address] PCP - General Internal Medicine 03/01/21 [facility] 03/[facility]24 11/13/24 [facility] 11/14/24 documented as of this encounter
--- OUTSIDE RECORDS SUMMARY | 2025-04-01 16:03 | XMS_ITS | Encounter Summary ---
Author Organization [employer] Address 75 [facility] 7t [place] [address] Care Team Providers Care Reptile Farmer Name Role Phone Sesar Pereyra MD Primary Care Provider +1- [phone] Reason for Visit * Reason Onset Date Comments Med Refill 01/17/2025 Encounter Details Date Type Department Care Team ([facility] st Contact Info) Description 01/17/2025 Refill [facility] MED & PEDS [address] [place] [address] Sesar Pereyra MD 505 [place] [address] Anemia, unspecified type Social History Tobacco Use [...] [facility] st Contact Info) Description 04/03/2025 3:30 PM EST Office Visit [facility] MED & PEDS [address] [place] [address] Sesar Pereyra MD [address] [place] [address] documented as of this encounter Visit Diagnoses Diagnosis Anemia, unspecified type documented in this encounter Additional Health Concerns Assessment Noted Time PHQ-9 Depression Total Score: 6 07/25/19 25 3:22 PM EDT documented as of this encounter Care Teams Reptile Farmer Relationship Specialty Start Date End Date Seasr Pereyra MD [address] [place] [address] PCP - General Internal Medicine 03/01/21 [facility] 11/14/24 documented as of this encounter
--- OUTSIDE RECORDS SUMMARY | 2025-04-01 16:03 | XMS_ITS | Encounter Summary ---
Author Organization [employer] Address 75 [facility] 7t [place] [address] Care Team Providers Care Studio Assistant Name Role Phone Sesar Pereyra MD Primary Care Provider +1 [phone] Reason for Visit * Reason Onset Date Comments Med Refill 02/18/2025 Encounter Details Date Type Department Care Team ([facility] st Contact Info) Description 02/18/2025 Refill [facility] MED & PEDS [address] [place] [address] Sesar Pereyra MD [address] [place] [address] Chronic left shoulder pain Social History Tobacco [...] [facility] st Contact Info) Description 04/03/2025 3:30 PM EST Office Visit [facility] MED & PEDS [address] [place] [address] Sesar Pereyra MD [address] [place] [address] documented as of this encounter Visit Diagnoses Diagnosis Chronic left shoulder pain Pain in joint, shoulder region documented in this encounter Additional Health Concerns Assessment Noted Time PHQ-9 Depression Total Score: 6 07/25/19 3:22 PM EDT documented as of this encounter Care Teams Studio Assistant Relationship Specialty Start Date End Date Sesar Pereyra MD [address] [place] [address] PCP - General Internal Medicine 03/01/[address] [facility] 11/14/24 documented as of this encounter
--- OUTSIDE RECORDS SUMMARY | 2025-04-01 16:03 | XMS_ITS | Encounter Summary ---
Author Organization [employer] Address [address] [facility] 7t [place] [address] Care Team Providers Care Petroleum Geologist Name Role Phone Sesar Pereyra MD Primary Care Provider +[phone] Reason for Visit * Reason Onset Date Comments Med Refill 01/21/2025 Encounter Details Date Type Department Care Team ([facility] st Contact Info) Description 01/21/2025 Refill [facility] MED & PEDS [address] [place] [address] Sesar Pereyra MD [address] [place] [address] Perinephric hematoma; Chronic pain syndrome; Dislocation of [...] 3:30 PM EST Office Visit [facility] MED & PEDS [address] [place] [address] Sesar Pereyra MD [address] [place] [address] documented as of this encounter Visit Diagnoses Diagnosis Perinephric hematoma Other specified disorder of kidney and ureter Chronic pain syndrome Dislocation of left ulnohumeral joint, initial encounter documented in this encounter Additional Health Concerns Assessment Noted Time PHQ-9 Depression Total Score: 6 07/25/19 25 3:22 PM EDT documented as of this encounter Care Teams Petroleum Geologist Relationship Specialty Start Date End Date Sesar Pereyra MD [address] [place] [address] PCP - General Internal Medicine 03/01/21 [facility] 11/14/24 documented as of this encounter
--- OUTSIDE RECORDS SUMMARY | 2025-04-01 16:03 | XMS_ITS | Encounter Summary ---
Author Organization [employer] Address 75 [facility] 7t [place] [address] Care Team Providers Care Rn Endocrinology Name Role Phone Sesar Pereyra MD Primary Care Provider +1 [phone] Reason for Visit * Reason Comments Med Refill Encounter Details Date Type Department Care Team ([facility] st Contact Info) Description 10/30/2024 Refill [facility] CHC MED & PEDS [address] [place], [place] [phone] Sesar Pereyra MD [address] [place] [address] Perinephric hematoma; Chronic pain syndrome; Dislocation of [...] [facility] MED & PEDS [address] [place] [address] Sesar Pereyra MD [address] [place] [address] documented as of this encounter Visit Diagnoses Diagnosis Perinephric hematoma Other specified disorder of kidney and ureter Chronic pain syndrome Dislocation of left ulnohumeral joint, initial encounter documented in this encounter Additional Health Concerns Assessment Noted Time PHQ-9 Depression Total Score: 6 07/25/19 25 3:22 PM EDT documented as of this encounter Care Teams Rn Endocrinology Relationship Specialty Start Date End Date Sesar Pereyra MD [address] [place] [address] PCP - General Internal Medicine 03/01/21 [facility] 03/22/24 11/13/24 [facility] 11/14/24 documented as of this encounter
--- OUTSIDE RECORDS SUMMARY | 2025-04-01 16:03 | XMS_ITS | Encounter Summary ---
Author Organization [employer] Address 75 [facility] 7t [place] [address] Care Team Providers Care Fire Chief Deputy Name Role Phone Sesar Pereyra MD Primary Care Provider +1 [phone] Reason for Visit * Reason Onset Date Comments Med Refill 02/26/2025 Encounter Details Date Type Department Care Team ([facility] st Contact Info) Description 02/26/2025 Telephone [facility] MED & PEDS [address] [place], [place] [phone] Sesar Pereyra MD [address] [place] [address] Med Refill Social History Tobacco Use Types [...] 24 hr capsule To be sent to: [facility] - [facility] [place] - [address] [place] [address] STE[place] documented in this encounter Plan of Treatment Upcoming Encounters Date Type Department Care Team (Late st Contact Info) Description 04/03/2025 3:30 PM EST Office Visit [facility] MED & PEDS [address] [place] [address] Sesar Pereyra MD [address] [place] [address] documented as of this encounter Visit Diagnoses Not on filedocumented in this encounter Additional Health Concerns Assessment Noted Time PHQ-9 Depression Total Score: 6 07/25/19 25 3:22 PM EDT documented as of this encounter Care Teams Fire Chief Deputy Relationship Specialty Start Date End Date Sesar Pereyra MD [address] [place] [address] PCP - General Internal Medicine 03/01/21 [facility] 11/14/24 documented as of this encounter
--- OUTSIDE RECORDS SUMMARY | 2025-04-01 16:03 | XMS_ITS | Encounter Summary ---
Author Organization [employer] Address 75 [facility] 7t [place] [address] Care Team Providers Care Regulatory Affairs Coordinator Name Role Phone Sesar Pereyra MD Primary Care Provider +1 [phone] Encounter Details Date Type Department Care Team ([facility] st Contact Info) Description 02/17/2025 Orders Only [facility] CHC MED & PEDS [address] [place], [place] [phone] Sesar Pereyra MD [address] [place], [place] [phone] Chronic left shoulder pain (Primary Dx) Social [...] 3:30 PM EST Office Visit [facility] MED & PEDS [address] [place] [address] Sesar Pereyra MD [address] [place] [address] documented as of this encounter Visit Diagnoses Diagnosis Chronic left shoulder pain- Primary Pain in joint, shoulder region documented in this encounter Additional Health Concerns Assessment Noted Time PHQ-9 Depression Total Score: 6 07/25/19 25 3:22 PM EDT documented as of this encounter Care Teams Regulatory Affairs Coordinator Relationship Specialty Start Date End Date Sesar Pereyra MD [address] [place] [address] PCP - General Internal Medicine 03/01/21 [facility] 11/14/24 documented as of this encounter
--- OUTSIDE RECORDS SUMMARY | 2025-04-01 16:03 | XMS_ITS | Encounter Summary ---
Author Organization [employer] Address 75 [facility] 7t [place] [address] Care Team Providers Care Merchant Banker Name Role Phone Sesar Pereyra MD Primary Care Provider +1 [phone] Encounter Details Date Type Department Care Team ([facility] st Contact Info) Description 10/14/2024 Orders Only [facility] CHC MED & PEDS [address] [place], [place] [phone] Sesar Pereyra MD [address] [place], [place] [phone] Anemia, unspecified type (Primary Dx) Social History [...] 3:30 PM EST Office Visit [facility] MED & PEDS [address] [place] [address] Sesar Pereyra MD [address] [place] [address] documented as of this encounter Visit Diagnoses Diagnosis Anemia, unspecified type- Primary documented in this encounter Additional Health Concerns Assessment Noted Time PHQ-9 Depression Total Score: 6 07/25/19 25 3:22 PM EDT documented as of this encounter Care Teams Merchant Banker Relationship Specialty Start Date End Date Sesar Pereyra MD [address] [place] [address] PCP - General Internal Medicine 03/01/21 [facility] 03/22/24 11/13/24 [facility]24 documented as of this encounter
--- OUTSIDE RECORDS SUMMARY | 2025-04-01 16:03 | XMS_ITS | Encounter Summary ---
Author Organization [employer] Address 75 [facility] 7t [place] [address] Care Team Providers Care Filing Or Registry Clerk Name Role Phone Sesar Pereyra MD Primary Care Provider +[phone] Reason for Visit * Reason Onset Date Comments Med Refill 02/17/2025 Encounter Details Date Type Department Care Team ([facility] st Contact Info) Description 02/17/2025 Refill [facility] MED & PEDS [address] [place] [address] Sesar Pereyra MD [address] [place] [address] Social History Tobacco Use Types Packs/Day Years [...] ([facility] st Contact Info) Description 04/03/2025 3:30 PM EST Office Visit [facility] MED & PEDS [address] [place] [address] Sesar Pereyra MD [address] [place] [address] documented as of this encounter Visit Diagnoses Not on filedocumented in this encounter Additional Health Concerns Assessment Noted Time PHQ-9 Depression Total Score: 6 07/25/19 25 3:22 PM EDT documented as of this encounter Care Teams Filing Or Registry Clerk Relationship Specialty Start Date End Date Sesar Pereyra MD [address] [place] [address] PCP - General Internal Medicine 03/01/[address] [facility] 11/14/24 documented as of this encounter
--- OUTSIDE RECORDS SUMMARY | 2025-04-01 16:03 | XMS_ITS | Encounter Summary ---
Author Organization [employer] Address 75 [facility] 7t [place] [address] Care Team Providers Care Account Liaison Hospice Name Role Phone Sesar Pereyra MD Primary Care Provider +1 [phone] Reason for Visit * Reason Onset Date Comments Med Refill 02/17/2025 Encounter Details Date Type Department Care Team ([facility] st Contact Info) Description 02/17/2025 Refill [facility] MED & PEDS [address] [place] [address] Sesar Pereyra MD [address] [place] [address] Social History Tobacco Use Types Packs/Day Years [...] 3:30 PM EST Office Visit [facility] MED & PEDS [address] [place] [address] Sesar Pereyra MD [address] [place] [address] documented as of this encounter Visit Diagnoses Not on filedocumented in this encounter Additional Health Concerns Assessment Noted Time PHQ-9 Depression Total Score: 6 07/25/19 25 3:22 PM EDT documented as of this encounter Care Teams Account Liaison Hospice Relationship Specialty Start Date End Date Sesar Pereyra MD [address] [place] [address] PCP - General Internal Medicine 03/01/21 [facility] 11/14/24 documented as of this encounter
--- OUTSIDE RECORDS SUMMARY | 2025-04-01 16:03 | XMS_ITS | Encounter Summary ---
Author Organization [employer] Address 75 [facility] 7t [place] [address] Care Team Providers Care Accounting Manager Controller Name Role Phone Sesar Pereyra MD Primary Care Provider +1 [phone] Reason for Visit * Reason Onset Date Comments FYI 02/04/2025 Encounter Details Date Type Department Care Team ([facility] st Contact Info) Description 02/04/[address] [facility] MEDICINE [address] [place] [address] Sesar Pereyra MD [address] [place] [address] FYI Social History Tobacco Use Types Packs/Day [...] - 02/04/2025 3:21 PM EDT TC from [facility] with House Call wanted to report pt's A1C point of care at 5.7 Call back not needed documented in this encounter Plan of Treatment Upcoming Encounters Date Type Department Care Team ([facility] st Contact Info) Description 04/03/2025 3:30 PM EST Office Visit [facility] CHC MED & PEDS [address] [place] [address] Sesar Pereyra MD [address] [place] [address] documented as of this encounter Visit Diagnoses Not on filedocumented in this encounter Additional Health Concerns Assessment Noted Time PHQ-9 Depression Total Score: 6 07/25/19 3:22 PM EDT documented as of this encounter Care Teams Accounting Manager Controller Relationship Specialty Start Date End Date Sesar Pereyra MD [address] [place] [address] PCP - General Internal Medicine 03/01/21 [facility] 11/14/24 documented as of this encounter
--- OUTSIDE RECORDS SUMMARY | 2025-04-01 16:03 | XMS_ITS | Encounter Summary ---
Author Organization [employer] Address 75 [facility] 7t [place] [address] Care Team Providers Care Highway Research Engineer Name Role Phone Sesar Pereyra MD Primary Care Provider +1 [phone] Encounter Details Date Type Department Care Team (Late st Contact Info) Description 10/10/2024 Orders Only [facility] [address] [place] [address] Provider, MD Jazmyn Social History Tobacco Use [...] Encounters Date Type Department Care Team ([facility] st Contact Info) Description 04/03/2025 3:30 PM EST Office Visit [facility] CHC MED & PEDS [address] [place] [address] Sesar Pereyra MD [address] [place] [address] documented as of this encounter Procedures Procedure Name Priority Date/Time Associated Diagnosis Comments ECG 12-LEAD Routine 10/09/2024 9:20 AM EDT ECG 12-LEAD Routine 10/08/2024 9:52 AM EDT US EXTREMITY NON-VASCULAR RIGHT LIMITED Routine 10/08/2024 9:43 AM EDT US ABDOMEN LIMITED Routine 10/08/2024 9:41 AM EDT documented in this encounter Results * ECG 12 lead (10/09/2024 9:20 AM EDT) Historical Provider ECG ORDERABLES Final Res ult * ECG 12 lead (10/08/2024 9:52 AM EDT) Historical Provider ECG ORDERABLES Final Res ult * US EXTREMITY NON-VASCULAR RIGHT LIMITED (10/08/2024 9:43 AM EDT) Anatomical Region Laterality Modality Ultrasound Historical Provider IMG US PROCEDURES Final R esult * US Abdomen Limited (10/08/2024 9:41 AM EDT) Anatomical Region Laterality Modality Abdomen Ultrasound us Historical Provider MD [place] US PROCEDURES Final R esult documented in this encounter Visit Diagnoses Not on filedocumented in this encounter Additional Health Concerns Assessment Noted Time PHQ-9 Depression Total Score: 6 07/25/19 25 3:22 PM EDT documented as of this encounter Care Teams Highway Research Engineer Relationship Specialty Start Date End Date Sesar Pereyra MD [address] [place] [address] PCP - General Internal Medicine 03/01/21 [facility] 03/22/24 11/13/24 [facility] documented as of this encounter
--- OUTSIDE RECORDS SUMMARY | 2025-04-01 16:03 | XMS_ITS | Encounter Summary ---
Author Organization [employer] Address [address] [facility] [address] [place] [address] Care Team Providers Care Sales Trader Name Role Phone Sesar Pereyra MD Primary Care Provider [phone] Encounter Details Date Type Department Care Team ([facility] st Contact Info) Description 11/01/2023 Orders Only [facility] [address], [place] [phone] Sesar Pereyra MD [address] [place] [address] Social History Tobacco Use Types Packs/Day Years [...] Description 04/03/2025 3:30 PM EST Office Visit [facility] MED & PEDS [address] [place] [address] Sesar Pereyra MD [address] [place] [address] documented as of this encounter Visit Diagnoses Not on filedocumented in this encounter Additional Health Concerns Assessment Noted Time PHQ-9 Depression Total Score: 16 024 10:59 AM EDT documented as of this encounter Care Teams Sales Trader Relationship Specialty Start Date End Date Sesar Pereyra MD [address] [place] [address] PCP - General Internal Medicine 03/01/21 [facility] 03/22/24 11/13/24 [facility] 11/14/24 documented as of this encounter
--- OUTSIDE RECORDS SUMMARY | 2025-04-01 16:03 | XMS_ITS | Encounter Summary ---
Author Organization [employer] Address [address] [facility] 7 [place] [address] Care Team Providers Care Mushroom Sorter Grader Name Role Phone Sesar Pereyra MD Primary Care Provider [phone] Reason for Referral * Hospital - Outpatient (Routine) - Closed Specialty Diagnoses / Procedures Referred By Contac t Referred To Contact Diagnoses Sleep disorder Snoring Procedures Polysomnography Sesar Pereyra MD [address] [place] [address] Phone: tel: fax: [address] [phone] Phone: tel: fax: Referral ID Status Reason Start Date Expiration Date Visits Re quested Visits Authorized [id number] Closed 08/02/2024 08/02/2025 1 1 Encounter Details Date Type Department Care Team (Late st Contact Info) Description 08/01/2024 Orders Only [facility]EDS [address] [place], [place] [phone] Sesar Pereyra MD [address] [place] [address] Sleep disorder (Primary Dx); Snoring Social History [...] Description 04/03/2025 3:30 PM EST Office Visit [facility]S [address] [place], [place] [phone] Sesar Pereyra MD [address] [place] [address] Scheduled Orders Name Type Priority Associated Diagnoses [...] PM EDT Narrative 08/26/2024 12:50 PM EDT [address] [address] XRay Report Signed Patient: Alex Nettles MR#: [id number] : 1945 Acct:[id number] Age/Sex: 79 / M ADM Date: 08/26/24 Loc: HO.ED Attending Dr: Ordering Physician: Lonny Delgado Date of Service: 08/26/24 Procedure(s): XR chest 2V Accession Number(s): [id number] cc: Sesar Pereyra MD; Lonny Delgado EXAMINATION: [...] 08/26/24 1248 DD/ 1235 TD/TT: 08/26/24 1240 Professor Of Marketing: Procedure Note Donotuseinterpreter, Image - 08/26/[address] [address] XRay Report Signed Patient: Alex NettlesMR#: [id number] : 7Acct:[id number] Age/Sex: 79 / MADM Date: 08/26/24 Loc: .ED Attending Dr: Ordering Physician: Lonny Delgado Date of Service: 08/26/24 Procedure(s): XR chest 2V Accession Number(s): [id number] cc: Sesar Pereyra MD; Lonny Delgado EXAMINATION: [...] 08/26/24 1248 DD/ 1235 TD/TT: 08/26/24 1240 Professor Of Marketing: [facility] External Provider IMG XR PROCEDURES Final Result * XR Shoulder 2+ Views Left (08/01/2024 10:00 AM EDT) Anatomical Region Laterality Modality Upper Extremities, Shoulder Left Radi ographic Imaging 08/01/2024 10:0 0 AM EDT Narrative 08/02/2024 8:13 AM EDT [facility] [address] [place] [address] XRay Report Signed Patient: Alex Nettles MR#: [id number] : 1945 Acct:[id number] Age/Sex: 79 / M ADM Date: 08/01/24 Loc: HO.HOSX Attending Dr: Royce Kothari MD Ordering Physician: Royce Kothari MD Date of Service: 08/01/24 Procedure(s): XR shoulder LT min 2V Accession Number(s): [id number] cc: Sesar Pereyra MD; Royce Kothari MD [...] 08/02/24 0811 DD/ 1000 TD/TT: 08/01/24 1005 Professor Of Marketing: Procedure Note Donotuseinterpreter, Image - 08/02/2024 [facility] [address] [place] [address] XRay Report Signed Patient: Alex NettlesMR#: [id number] : 1945cct:[id number] Age/Sex: 79 / MADM Date: 08/01/24 Loc: HO.HOSX Attending Dr: Royce Kothari MD Ordering Physician: Royce Kothari MD Date of Service: 08/01/24 Procedure(s): XR shoulder LT min 2V Accession Number(s): [id number] cc: Sesar Pereyra MD; Royce Kothari MD [...] 08/02/24 0811 DD/ 1000 TD/TT: 08/01/24 1005 Professor Of Marketing: [facility] External Provider IMG XR PROCEDURES Final Result documented in this encounter Visit Diagnoses Diagnosis Sleep disorder- Primary Unspecified sleep disturbance Snoring Other dyspnea and respiratory abnormality documented in this encounter Additional Health Concerns Assessment Noted Time PHQ-9 Depression Total Score: 6 07/25/19 25 3:22 PM EDT documented as of this encounter Care Teams Mushroom Sorter Grader Relationship Specialty Start Date End Date Sesar Pereyra MD [address] [place] [address] PCP - General Internal Medicine 03/01/21 [facility] 03/22/24 11/13/24 [facility] 11/14/24 documented as of this encounter
--- OUTSIDE RECORDS SUMMARY | 2025-04-01 16:03 | XMS_ITS | Encounter Summary ---
Author Organization [employer] Address [address] [facility] 7[address] [place] [address] Care Team Providers Care Furniture Stainer Name Role Phone Sesar Pereyra MD Primary Care Provider [phone] Reason for Visit * Reason Onset Date Comments Referral 01/02/2024 Encounter Details Date Type Department Care Team ([facility] st Contact Info) Description 01/02/2024 Telephone [facility] [address] [place] [address] Sesar Pereyra MD [address] [place] [address] Referral Social History Tobacco Use Types Packs/Day [...] - 01/02/2024 10:48 AM EDT Tc from [place] the patients EC requesting a referral for a gerontologist and would like to be sent to at [facility] [place] documented in this encounter Plan of Treatment Upcoming Encounters Date Type Department Care Team (Late st Contact Info) Description 04/03/2025 3:30 PM EST Office Visit [facility] MED & PEDS [address] [place] [address] Sesar Pereyra MD [address] [place] [address] documented as of this encounter Visit Diagnoses Not on filedocumented in this encounter Additional Health Concerns Assessment Noted Time PHQ-9 Depression Total Score: 16 024 10:59 AM EDT documented as of this encounter Care Teams Furniture Stainer Relationship Specialty Start Date End Date Sesar Pereyra MD [address] [place] [address] PCP - General Internal Medicine 03/01/21 [facility] 03/22/24 11/13/24 [facility] 11/14/24 documented as of this encounter
== END 2025-04-01 14:37 | disposition home or self-care (01) ==
LOC: HO.HCS 14:02
PROVIDERS: PCP Internal Medicine; Visit Provider Internal Medicine
DX: I48.92 Unspecified atrial flutter (principal); I25.10 Atherosclerotic heart disease of native coronary artery without angina pectoris; I71.20 Thoracic aortic aneurysm, without rupture, unspecified; S37.019A Minor contusion of unspecified kidney, initial encounter
CPT/HCPCS: 93010; 99214; G2211

== ENCOUNTER → 2025-04-01 14:02 | Outpatient (BNVA) | payer MEDICARE, SELFPAY | PROVIDERS: PCP Internal Medicine; Visit Provider Internal Medicine | DX: I48.92 Unspecified atrial flutter (principal); I25.10 Atherosclerotic heart disease of native coronary artery without angina pectoris; I71.20 Thoracic aortic aneurysm, without rupture, unspecified; S37.019D Minor contusion of unspecified kidney, subsequent encounter; Z87.891 Personal history of nicotine dependence; Z95.5 Presence of coronary angioplasty implant and graft; Z98.890 Other specified postprocedural states | CPT/HCPCS: 93005; 99212 ==

== ENCOUNTER 2025-04-04 12:01 | Outpatient (AMB) | payer OTHER, MEDICAID, SELFPAY ==
--- NOTE | 2025-04-04 12:03 | HO.NEPHOV_ITS ---
Vital Signs 04/04/25 12:08 Height 6 ft 1 in Weight 223 lb 4 oz BMI 29.5 BP 130/72 Blood Pressure Location Rt brachial Position Sitting Intake Visit Reasons: 3mon f/u w/labs-[facility]VM [facility] Electronic Required: No Accompanied by: Self / Same As Patient Allergies No Known Allergies (No Known Allergies*) Allergy (Verified 04/04/25 12:08) HPI Comments Details: Mr. Johnson was seen in follow up for CKD. He has a remote history of left renal carcinoma which was treated by partial nephrectomy in 2006 . He recently had a follow-up MRI which revealed a 1.6 cm left renal mass which appear to be e nhancing and suspicious for renal cell cancer. 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 He is known to have peripheral vascular disease and had undergone bypass. He has history of renal stones but has not had one lately. Remotely he had colectomy and colostomy which had been reversed in 2006, He denies any flank pain, hematuria, dysuria. He denies taking nonsteroidal anti- inflammatory medications. He does not have any coronary artery disease, congestive heart failure or known renal artery stenosis. He takes lisinopril and metoprolol and his BP has been at goal. He is on anticoagulation. His recent serum creatinine was found to be 1.48. [facility] Medical History (Updated 03/13/25 @ 00:01 by Scott Azar) Paroxysmal atrial flutter Renal hematoma Orthostatic lightheadedness QT prolongation Cardiac arrhythmia CHF (congestive heart failure) Acute dyspnea Glenoid fracture of shoulder Closed left scapular fracture Dislocation of left glenohumeral joint Shoulder pain, left Paroxysmal atrial fibrillation Preoperative cardiovascular examination Coronary artery disease Hypersomnia Snoring Neuropathy Atherosclerotic cardiovascular disease History of alcohol abuse History of COVID-19 On beta jose at home COPD (chronic obstructive pulmonary disease) On anticoagulant therapy History of atrial fibrillation PVD (peripheral vascular disease) Renal cell carcinoma Hypertension Depression Anxiety Diverticulitis Surgical History History of intestinal surgery History of kidney surgery H/O cardiac catheterization History of colectomy S/P femoral-femoral bypass surgery Social History Household Members: Other Household Members Other:: girlfriend Housing: House Are you a primary critical care physician assistant to a significant other at home: No Do you presently have visiting nurse or other home services: Yes Alcohol intake: former Patient Tobacco Use Status: Former Tobacco user Tobacco use type: Cigarette Second Hand Smoke Exposure: No Substance Use Type: Marijuana Advance Directives Date on File: 06/09/21 service: No Current occupational status: retired Current occupation: right hand dominant Review of Systems Const All systems reviewed & are unremarkable except as noted in HPI and below Physical Exam Vital Signs: Last Vital Signs BP 130/72 04/04/25 12:08 BMI result Body Mass Index 29.5 Const General: comfortable and no acute distress Orientation/consciousness: patient oriented x3 HEENT Head: Yes normocephalic Mouth: Normal oral and palatal mucosa present Eyes EOM: EOMs intact bilaterally Neck Neck: Yes supple Resp Auscultation: clear to auscultation bilaterally Cardio Jugular venous distension: no JVD Rate: regular rate GI Palpation (GI): Soft to palpation Auscultation: normal bowel sounds General: Yes no CVA tenderness Back/Spine/Pelvis Back: no CVA tenderness Skin General skin exam: no rashes or lesions noted Neuro General: patient oriented x3 and moves all extremities Results Reviewed Nephrology Results: Hgb, (14.0-18.0) 13.8 g/dl L Δ 03/12/25 WBC, (4.8-10.8) 5.5 X10*3/uL 03/12/25 Plt Count, (160-400) 161 X10*3/uL Δ 03/12/25 Sodium, (135-145) 141 mmol/L 03/12/25 Potassium, (3.3-5.1) 3.8 mmol/L 03/12/25 Chloride, (96-108) 110 mmol/L H 03/12/25 Carbon Dioxide, (22-29) 21 mmol/L L 03/12/25 BUN, (9-16) 22 mg/dL H 03/12/25 Creatinine, (0.5-1.4) 1.48 mg/dL H 03/12/25 Calcium, (8.4-10.2) 9.0 mg/dL 03/12/25 Renal US 06/29/23 Assessment & Plan Assessment & Plan (1) CKD (chronic kidney disease) stage 3, GFR 30-59 ml/min: Code(s): N18.30 - Chronic kidney disease, stage 3 unspecified Category: Medical Qualifiers: Chronic kidney disease stage 3 subtype: stage 3a (GFR 45-59) Qualified Code(s): N18.31 - Chronic kidney disease, stage 3a Plan Alex has chronic kidney disease most likely from vascular disease. He also had the loss of GFR from his partial nephrectomy. He is known to have bypasses for his PAD. He has a biopsy-proven clear cell renal cancer. He underwent cryoablation. His follow up MRI showed no convincing evidence for residual recurrent disease. He should remain well hydrated. He avoids nonsteroidal anti- inflammatory medications. He should remain well hydrated. He will be a candidate for SGLT2 i. I answered all his questions. Follow-up blood work ordered Orders: Orders Phosphorus 4 Months N18.31 - Chronic kidney disease, stage 3a Vitamin D 25-OH Total 4 Months N18.31 - Chronic kidney disease, stage 3a Creatinine 4 Months N18.31 - Chronic kidney disease, stage 3a Blood Urea Nitrogen 4 Months N18.31 - Chronic kidney disease, stage 3a Electrolytes 4 Months N18.31 - Chronic kidney disease, stage 3a Parathyroid Hormone Intact 4 Months N18.31 - Chronic kidney disease, stage 3a Coding Level of Care Code Est Pt Level 4 (66925) Diagnoses Stage 3a chronic kidney disease N18.31 Chronic kidney disease stage 3 subtype: stage 3a (GFR 45-59)
[2025-04-04 12:08] VITALS: BP 130/72; BMI 29.5
== END 2025-04-04 12:20 | disposition home or self-care (01) ==
LOC: HO.HKA 12:01
PROVIDERS: PCP Internal Medicine; Visit Provider Internal Medicine Nephrology
DX: N18.31 Chronic kidney disease, stage 3a (principal)
CPT/HCPCS: 99214